=== PATIENT | female | born 1940 | race Two or more races ===

== ENCOUNTER → 2016-04-09 | Outpatient (CLI) | payer MEDICARE, OTHER ==
[~2016-04-09] MED LIST: AMIODARONE HCL200 MG ORAL; AMLODIPINE BESYL5 MG PO; ASPIR-LOW81 MG PO; BENADRYL25 M3 PO; CATAPRES0.1 MG ORAL; CLONIDINE HCL0.1 MG PO; CLONIDINE0.1 MG ORAL; COLACE100 MG ORAL; DIPHENHYDRAMINE25 M1 ORAL; FUROSEMIDE20 M1 ORAL; FUROSEMIDE40 MG ORAL; GABAPENTIN100 MG ORAL; HYDREA500 MG ORAL; HYDREA500 MG PO; HYDROCHLOROTHIA25 MG PO; K-DUR10 ME1; KEFLEX500 MG ORAL; KLOR-CON 1010 MEQ ORAL; LEVAQUIN250 M1 ORAL; LISINOPRIL-HCT1 EAC1 PO; LISINOPRIL20 MG ORAL; METOPROLOL TAR100 MG PO; METOPROLOL TART50 M1 ORAL; METOPROLOL TART50 MG ORAL; NEURONTIN300 MG ORAL; NORCO 5-325 TA1 EACH ORAL; OS-CAL1250 MG ORAL; POTASSIUM CHLO10 ME3 ORAL; POTASSIUM CHLO20 ME3 PO; PRADAXA150 MG PO; PREDNISONE20 MG ORAL; PROTONIX40 MG ORAL; THIAMINE HCL100 MG ORAL; TYLENOL EXTRA500 MG ORAL; VIT B PO; VITAMIN D400 INTLU PO; ZESTRIL20 MG ORAL; [UNRECOGNIZED DRUG - CODE] PO; [UNRECOGNIZED DRUG - OTHER] PO
[2016-04-09 11:19] LABS: MEAN CORPUSCULAR HEMOGLOBIN 25.6 PG (27.0-31.0); MEAN CORPUSCULAR HGB CONC 29.2 G/DL (32.0-36.0); MEAN CORPUSCULAR VOLUME 88 FL (80-99); PLATELET COUNT 389 K/UL (150-450); RED CELL DISTRIBUTION WIDTH 17.8 % (11.6-14.8); WHITE BLOOD COUNT 17.1 K/UL (4.8-10.8)
[2016-04-09 11:28] LABS: ALANINE AMINOTRANSFERASE 16 U/L (3-33); ANION GAP 14 (5-15); ASPARTATE AMINO TRANSFERASE 22 U/L (5-40); CARBON DIOXIDE 24 mEQ/L (20-30); CHLORIDE 100 mEQ/L (98-107); CREATININE 0.7 mg/dL (0.5-0.9); HEMOLYSIS 7; INR 1.4 (0.9-1.1); MAGNESIUM 1.8 mg/dL (1.7-2.5); PHOSPHORUS 2.7 mg/dL (2.5-4.8); POTASSIUM 4.3 mEQ/L (3.4-4.9); PROTHROMBIN TIME 14.6 SEC (9.30-11.50); SODIUM 138 mEQ/L (135-145); TOTAL PROTEIN 6.7 g/dL (6.6-8.7)
[2016-04-09 11:46] LABS: HEMOGLOBIN A1C 5.2 % (< 6.0)
[2016-04-09 11:49] LABS: BAND NEUTROPHILS % (MANUAL) 2 % (0-8); BASOPHILS % (MANUAL) 0 % (0-2); EOSINOPHILS % (MANUAL) 1 % (0-3); LYMPHOCYTES % (MANUAL) 6 % (20-45); NEUTROPHILS % (MANUAL) 89 % (45-75); PLATELET ESTIMATE ADEQUATE; PLATELET MORPHOLOGY NORMAL; TOTAL CELLS COUNTED 100
== END | disposition home or self-care (01) ==
LOC: LAB 10:21
DX: I10 Essential (primary) hypertension (principal); E11.9 Type 2 diabetes mellitus without complications; I48.91 Unspecified atrial fibrillation; Z95.0 Presence of cardiac pacemaker; E66.9 Obesity, unspecified; D75.1 Secondary polycythemia
CPT/HCPCS: 36415; 80053; 82607; 83036; 83735; 84100; 84443; 85007; 85025; 85610; 85730

== ENCOUNTER 2016-04-30 13:16 | Inpatient (IN) | payer MEDICARE, OTHER ==
[~2016-04-30] VITALS: Ht 152.4 cm; Wt 72.6 kg
[~2016-04-30 13:16] MED LIST changes: -CATAPRES0.1 MG ORAL; -METOPROLOL TART50 M1 ORAL; -NEURONTIN300 MG ORAL; -POTASSIUM CHLO10 ME3 ORAL; -ZESTRIL20 MG ORAL
--- NOTE | 2016-04-30 14:09 | Emergency Room Report ---
History of Present Illness General Chief Complaint: Generalized Weakness Source: Patient Present Illness HPI Patient is a 75-year-old female who presented after increased shortness of breath. Generalized weakness. Patient was noted to have recent increased falls. Patient had been taking medications for regular heartbeat. She states she's not been vomiting blood. Patient had gradual onset of symptoms she is followed by Dr. Hu patient had worsening shortness of breath with supine position.She reportedly was told that she had a blood infection. Allergies: Coded Allergies: No Known Allergies (Unverified , 04/30/16) Patient History Past Medical History: see triage record Last Menstrual Period: na Reviewed Nursing Documentation: PMH: Agreed, PSxH: Agreed Nursing Documentation-PMH Past Medical History: No History, Except For Hx Cardiac Problems: Yes Hx Hypertension: Yes Hx Pacemaker: Yes Hx Asthma: No Hx COPD: No Hx Diabetes: No Hx Cancer: No Hx Gastrointestinal Problems: Yes Hx Dialysis: No Hx Neurological Problems: No Hx Cerebrovascular Accident: No Hx Transient Ischemic Attacks: Yes Hx Seizures: No Review of Systems All Other Systems: negative except mentioned in HPI Physical Exam Vital Signs Date Time Temp Pulse Resp B/P Pulse Ox O2 Delivery O2 Flow Rate FiO2 04/30/16 13:21 98.4 60 16 86/62 95 Room Air General Appearance: alert, GCS 15, mild distress ENT: other - blood in oropharynx Neck: full range of motion, other - jvd Respiratory: chest non-tender, lungs clear, normal breath sounds Cardiovascular #1: normal peripheral pulses, regular rate, rhythm Gastrointestinal: normal inspection, normal bowel sounds, non tender, soft Genitourinary: normal inspection Neurologic: normal inspection, alert, oriented x3, responsive, 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 Differential diagnosis included was not limited to anemia, urinary tract infection, electrolyte abnormality, hypothyroidism, myocardial infarction, myasthenia gravis, dehydration, among others. Because of complexity of patient's case laboratory testing and imaging studies were ordered. Patient was given IV fluids. Laboratory testing was ordered. EKG interpreted by me showed atrial paced rhythm with a rate of 60 there were no acute ST or T wave changes.Rhythm strip showed paced rhythm with rate in the 60s without PVCs or ectopy.The patient had some improvement her blood pressure after IV fluid hydration. Patient was given IV antibiotics. Initial lactic acid level was noted to be normal The patient was discussed with Dr. Adrian for inpatient management Laboratory Tests Test 04/30/16 14:30 White Blood Count 16.9 K/UL (4.8-10.8) H Red Blood Count 5.81 M/UL (4.20-5.40) H Hemoglobin 14.6 G/DL (12.0-16.0) Hematocrit 49.9 % (37.0-47.0) H Mean Corpuscular Volume 86 FL (80-99) Mean Corpuscular Hemoglobin 25.1 PG (27.0-31.0) L Mean Corpuscular Hemoglobin Concent 29.3 G/DL (32.0-36.0) L Red Cell Distribution Width 18.5 % (11.6-14.8) H Platelet Count 447 K/UL (150-450) Mean Platelet Volume 13.9 FL (6.5-10.1) H Neutrophils (%) (Auto) % (45.0-75.0) Lymphocytes (%) (Auto) % (20.0-45.0) Monocytes (%) (Auto) % (1.0-10.0) Eosinophils (%) (Auto) % (0.0-3.0) Basophils (%) (Auto) % (0.0-2.0) Neutrophils % (Manual) Pending Lymphocytes % (Manual) Pending Platelet Estimate Pending Platelet Morphology Pending Prothrombin Time 19.8 SEC (9.30-11.50) H Prothrombin Time INR 1.9 (0.9-1.1) H PTT 62 SEC (23-33) H Sodium Level Pending Potassium Level Pending Chloride Level Pending Carbon Dioxide Level Pending Blood Urea Nitrogen Pending Creatinine Pending Estimate Glomerular Filtration Rate Pending Glucose Level Pending Lactic Acid Level Pending Calcium Level Pending Total Bilirubin Pending Aspartate Amino Transferase (AST) Pending Alanine Aminotransferase (ALT) Pending Alkaline Phosphatase Pending Total Creatine Kinase Pending Creatine Kinase MB Pending Troponin I Pending Total Protein Pending Albumin Pending Globulin Pending EKG Diagnostic Results ST Segments: no acute changes Chest X-Ray Diagnostic Results EP Interpretation: Yes Findings: no consolidation, no effusion, no pneumothorax, no acute cardiopulmonary disease Number of Views: 1 Last Vital Signs Date Time Temp Pulse Resp B/P Pulse Ox O2 Delivery O2 Flow Rate FiO2 04/30/16 13:21 98.4 60 16 86/62 95 Room Air Status: unchanged Disposition: ADMITTED INPATIENT Condition: Serious Petar Thompson Apr 30, 2016 14:09
[2016-04-30 14:54] LABS: MEAN CORPUSCULAR HEMOGLOBIN 25.1 PG (27.0-31.0); MEAN CORPUSCULAR HGB CONC 29.3 G/DL (32.0-36.0); MEAN CORPUSCULAR VOLUME 86 FL (80-99); MEAN PLATELET VOLUME 13.9 FL (6.5-10.1); PLATELET COUNT 447 K/UL (150-450); RED BLOOD COUNT 5.81 M/UL (4.20-5.40); RED CELL DISTRIBUTION WIDTH 18.5 % (11.6-14.8); WHITE BLOOD COUNT 16.9 K/UL (4.8-10.8)
--- NOTE | 2016-04-30 15:02 | Diagnostic Imaging Report ---
Indication: SOB Technique: One view of the chest Comparison: 04/18/2015 Findings: Degenerative changes of both shoulders are again noted. The heart is borderline enlarged. Aorta is tortuous and ectatic. Left chest pacemaker is again demonstrated. Impression: No acute process. Findings as noted
[2016-04-30 15:05] LABS: INR 1.9 (0.9-1.1); PROTHROMBIN TIME 19.8 SEC (9.30-11.50)
[2016-04-30 15:11] LABS: TROPONIN I < 0.30 ng/mL (<=0.30)
[2016-04-30 15:13] LABS: ALANINE AMINOTRANSFERASE 13 U/L (3-33); CALCIUM 8.8 mg/dL (8.6-10.2); CHLORIDE 96 mEQ/L (98-107); CREATININE 0.8 mg/dL (0.5-0.9); SODIUM 136 mEQ/L (135-145)
[2016-04-30 15:15] VITALS: BP 100/73
[2016-04-30] MEDS ORDERED: Ampicillin/Sulbactam Sod 3 GM in NS 110 ML IVPB ONE (15:15)
[2016-04-30 15:27] LABS: ASPARTATE AMINO TRANSFERASE 30 U/L (5-40)
[2016-04-30] MEDS ORDERED: CATAPRES0.1 MG ORAL (15:30)
[2016-04-30] MEDS ORDERED: METOPROLOL TART50 M1 ORAL (15:30)
[2016-04-30] MEDS ORDERED: GABAPENTIN100 MG ORAL (15:34)
[2016-04-30 15:40] LABS: APPEARANCE,URINE CLEAR; KETONES,URINE NEGATIVE (NEGATIVE); LEUKOCYTE ESTERASE ,URINE 2+ (NEGATIVE); NITRITE,URINE NEGATIVE (NEGATIVE); PH,URINE 6 (4.5-8.0); PROTEIN,URINE 2+ (NEGATIVE); UROBILINOGEN,URINE 4 MG/DL (0.0-1.0)
[2016-04-30 15:42] LABS: ANION GAP 17 (5-15); CARBON DIOXIDE 23 mEQ/L (20-30); HEMOLYSIS 247; TOTAL PROTEIN 6.7 g/dL (6.6-8.7)
[2016-04-30] MEDS ORDERED: Unasyn 3gm Inj ONE (15:43)
[2016-04-30] MEDS ORDERED: POTASSIUM CHLO10 ME3 ORAL (15:44)
[2016-04-30] MEDS ORDERED: ZESTRIL20 MG ORAL (15:44)
[2016-04-30 15:58] LABS: BACTERIA,URINE MODERATE /HPF; RBC,URINE 0-2 /HPF (0 - 2); SQUAMOUS EPITHELIAL CELL,UR FEW /LPF (NONE/OCC)
[2016-04-30] MEDS ORDERED: Miralax 17gm pkt ORAL PRN (16:00)
[2016-04-30] MEDS ORDERED: DuoNeb 0.5-3(2.5)mg/3ml neb HHN PRN (16:00)
[2016-04-30] MEDS ORDERED: Nitroglycerin Subl 0.4mg tab (Bottle Of 25) SL PRN (16:00)
[2016-04-30 16:01] LABS: AMORPHOUS SEDIMENT,UR FEW /LPF; ICTOTEST NEGATIVE
[2016-04-30 16:08] LABS: BAND NEUTROPHILS % (MANUAL) 3 % (0-8); LYMPHOCYTES % (MANUAL) 5 % (20-45); NEUTROPHILS % (MANUAL) 90 % (45-75); TOTAL CELLS COUNTED 100
[2016-04-30 16:09] LABS: ANISOCYTOSIS 1+
[2016-04-30 16:10] LABS: BASOPHILS % (MANUAL) 0 % (0-2); EOSINOPHILS % (MANUAL) 0 % (0-3); PLATELET ESTIMATE INCREASED; PLATELET MORPHOLOGY NORMAL
[2016-04-30 16:12] LABS: CKMB < 1.5 ng/mL (< 3.8)
[2016-04-30 17:45] VITALS: BP 109/56
[2016-04-30] MEDS ORDERED: Vancomycin 1.5gm/D5W 300ml 300 ML IVPB ONE (19:15)
[2016-04-30 19:30] VITALS: BP 128/64
[2016-04-30] MEDS ORDERED: Heparin 5000 units/ml inj SUBQ SCH (21:00)
[2016-04-30] MEDS ORDERED: Dabigatran 150mg cap ORAL SCH (21:00)
[2016-04-30] MEDS ORDERED: Cefepime HCl 2 GM in D5W 110 ML IV SCH (22:00)
[2016-04-30 22:16] VITALS: BP 137/65
[2016-04-30] MEDS: Morphine Sulfate 2mg/ml Inj IVP PRN (22:16)
--- NOTE | 2016-04-30 23:34 | Consultation ---
History of Present Illness General Date patient seen: Apr 30, 2016 Chief Complaint: Generalized Weakness Referring physician: Dr. Adrian Reason for Consultation: inpatient management Present Illness HPI 75-year-old female with PMH of pacemaker, CAD, presented to ER with CC of shortness of breath and generalized weakness. She was at her primary physician' s office, and was sent to ER for evaluation of her increased weakness and dyspnea. She was noticed to have sepsis and admitted to telemetry for further w /u. She is just c/o feeling bad and her legs bothers her as well, without having pain in legs. Allergies: Coded Allergies: No Known Allergies (Unverified , 04/30/16) Medication History Scheduled Amiodarone Hcl* (Cordarone*), 200 MG ORAL DAILY, (Reported) Calcium Carbonate ([id number]), 500 MG PO DAILY, (Reported) Dabigatran Etexilate Mesylate* (Pradaxa*), 150 MG PO Q12H, (Reported) Furosemide* (Lasix*), 40 MG ORAL DAILY, (Reported) Gabapentin* (Gabapentin*), 100 MG ORAL QAM AND 300MG PO QHS, (Reported) Hydroxyurea* (Hydrea*), 500 MG ORAL DAILY Lisinopril* (Zestril*), 20 MG ORAL BID, (Reported) Metoprolol Tartrate* (Metoprolol Tartrate*), 50 MG ORAL EVERY 12 HOURS, ( Reported) Potassium Chloride (Potassium Chloride), 20 MEQ ORAL DAILY, (Reported) Thiamine Hcl (Vitamin B1*), 100 MG ORAL DAILY, (Reported) Scheduled PRN Clonidine Hcl* (Catapres*), 0.1 MG ORAL EVERY 8 HOURS PRN for SBP >170, ( Reported) Discontinued Medications Acetaminophen* (Tylenol Extra Strength*), 500 MG ORAL Q6H PRN for Mild Pain/ Temp > 100.5 Discontinued Reason: Pt stopped taking med Gabapentin* (Gabapentin*), 100 MG ORAL THREE TIMES A DAY Discontinued Reason: Medication dose changed Levofloxacin* (Levaquin*), 250 MG ORAL DAILY Discontinued Reason: Therapy completed Patient History Healthcare decision maker Resuscitation status Advanced Directive on File Past Medical/Surgical History Past Medical/Surgical History: (1) Pacemaker (2) Heart failure Physical Exam General Appearance: WD/WN HEENT: normocephalic, atraumatic Neck: non-tender, normal alignment Respiratory/Chest: chest wall non-tender, lungs clear Cardiovascular/Chest: normal peripheral pulses, normal rate Abdomen: normal bowel sounds Genitourinary/Rectal: normal genital exam Skin Exam: normal pigmentation 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 Last 24 Hour Vital Signs Date Time Temp Pulse Resp B/P Pulse Ox O2 Delivery O2 Flow Rate FiO2 04/30/16 22:46 97.9 04/30/16 22:16 97.1 60 14 137/65 94 Room Air 04/30/16 19:30 60 18 128/64 95 Room Air 04/30/16 17:45 60 15 109/56 95 Room Air 04/30/16 15:15 97.9 60 15 100/73 95 Room Air 04/30/16 13:21 98.4 60 16 86/62 95 Room Air Laboratory Tests Test 04/30/16 14:30 04/30/16 15:23 White Blood Count 16.9 K/UL (4.8-10.8) H Red Blood Count 5.81 M/UL (4.20-5.40) H Hemoglobin 14.6 G/DL (12.0-16.0) Hematocrit 49.9 % (37.0-47.0) H Mean Corpuscular Volume 86 FL (80-99) Mean Corpuscular Hemoglobin 25.1 PG (27.0-31.0) L Mean Corpuscular Hemoglobin Concent 29.3 G/DL (32.0-36.0) L Red Cell Distribution Width 18.5 % (11.6-14.8) H Platelet Count 447 K/UL (150-450) Mean Platelet Volume 13.9 FL (6.5-10.1) H Neutrophils (%) (Auto) % (45.0-75.0) Lymphocytes (%) (Auto) % (20.0-45.0) Monocytes (%) (Auto) % (1.0-10.0) Eosinophils (%) (Auto) % (0.0-3.0) Basophils (%) (Auto) % (0.0-2.0) Differential Total Cells Counted 100 Neutrophils % (Manual) 90 % (45-75) H Lymphocytes % (Manual) 5 % (20-45) L Monocytes % (Manual) 2 % (1-10) Eosinophils % (Manual) 0 % (0-3) Basophils % (Manual) 0 % (0-2) Band Neutrophils 3 % (0-8) Platelet Estimate Increased H Platelet Morphology Normal Anisocytosis 1+ Prothrombin Time 19.8 SEC (9.30-11.50) H Prothromb Time International Ratio 1.9 (0.9-1.1) H Activated Partial Thromboplast Time 62 SEC (23-33) H Sodium Level 136 mEQ/L (135-145) Potassium Level 5.0 mEQ/L (3.4-4.9) H Chloride Level 96 mEQ/L (98-107) L Carbon Dioxide Level 23 mEQ/L (20-30) Anion Gap 17 (5-15) H Blood Urea Nitrogen 16 mg/dL (7-23) Creatinine 0.8 mg/dL (0.5-0.9) Estimat Glomerular Filtration Rate mL/min (>60) Glucose Level 125 mg/dL (74-106) H Lactic Acid Level 1.20 mmol/L (0.66-2.22) Calcium Level 8.8 mg/dL (8.6-10.2) Total Bilirubin 0.8 mg/dL (0.0-1.2) Aspartate Amino Transf (AST/SGOT) 30 U/L (5-40) Alanine Aminotransferase (ALT/SGPT) 13 U/L (3-33) Alkaline Phosphatase 87 U/L (35-104) Total Creatine Kinase 43 U/L (26-140) Creatine Kinase MB < 1.5 ng/mL (< 3.8) Creatine Kinase MB Relative Index Troponin I < 0.30 ng/mL (<=0.30) Total Protein 6.7 g/dL (6.6-8.7) Albumin 3.4 g/dL (3.5-5.2) L Globulin 3.3 g/dL Albumin/Globulin Ratio 1.0 (1.0-2.7) Urine Color Yellow Urine Appearance Clear Urine pH 6 (4.5-8.0) Urine Specific [place] 1.015 (1.005-1.035) Urine Protein 2+ (NEGATIVE) H Urine Glucose (UA) Negative (NEGATIVE) Urine Ketones Negative (NEGATIVE) Urine Occult Blood Negative (NEGATIVE) Urine Nitrite Negative (NEGATIVE) Urine Bilirubin 1+ (NEGATIVE) H Urine Ictotest Negative Urine Urobilinogen 4 MG/DL (0.0-1.0) H Urine Leukocyte Esterase 2+ (NEGATIVE) H Urine RBC 0-2 /HPF (0 - 2) Urine WBC 2-4 /HPF (0 - 2) Urine Squamous Epithelial Cells Few /LPF (NONE/OCC) Urine Amorphous Sediment Few /LPF (NONE) H Urine Bacteria Moderate /HPF (NONE) H Height (Feet): 5 Weight (Pounds): 160 Medications Current Medications Medications (Trade) Dose Ordered Sig/Escobar Route PRN Reason Start Time Stop Time Status Last Admin Dose Admin Acetaminophen (Tylenol) 650 mg Q4H PRN ORAL fever 04/30/16 16:00 05/30/16 15:59 Albuterol/ Ipratropium 3 ml 3 ml EVERY 4 HOURS PRN HHN Shortness of Breath 04/30/16 16:00 05/05/16 15:59 Amiodarone HCl (Cordarone) 200 mg DAILY ORAL 05/01/16 09:00 05/31/16 08:59 Cefepime HCl 2 gm/ Dextrose 110 ml @ 220 mls/hr Q24H IV 04/30/16 22:00 05/07/16 21:59 Dabigatran (Pradaxa) 150 mg Q12HR ORAL 04/30/16 21:00 05/30/16 20:59 Hydroxyurea (Hydrea) 500 mg DAILY ORAL 05/01/16 09:00 05/06/16 08:59 Morphine Sulfate (Morphine Sulfate) 2 mg EVERY 4 HOURS PRN IVP Moderate Pain (Pain Scale 4-6) 04/30/16 16:00 05/07/16 15:59 04/30/16 22:16 Nitroglycerin (Ntg) 0.4 mg Q5M PRN SL Prn Chest Pain 04/30/16 16:00 05/30/16 15:59 Ondansetron HCl (Zofran) 4 mg Q6H PRN IVP Nausea & Vomiting 04/30/16 16:00 05/30/16 15:59 Polyethylene Glycol (Miralax) 17 gm DAILYPRN PRN ORAL Constipation 04/30/16 16:00 05/30/16 15:59 Temazepam (Restoril) 15 mg HSPRN PRN ORAL Insomnia 04/30/16 16:00 05/07/16 15:59 Vancomycin HCl (Vanco rx to dose) 1 ea DAILY PRN MISC . 04/30/16 19:15 05/30/16 19:14 Vancomycin HCl/ Dextrose (Vancomycin/D5W) 275 ml @ 183.3 mls/ hr Q24H IVPB 05/01/16 19:00 05/06/16 18:59 Assessment/Plan Problem List: (1) Pyelonephritis ICD Codes: N12 - Tubulo-interstitial nephritis, not specified as acute or chronic SNOMED: 02155462 (2) Severe sepsis ICD Codes: A41.9 - Sepsis, unspecified organism; R65.20 - Severe sepsis without septic shock SNOMED: 00414494 (3) Dehydration ICD Codes: E86.0 - Dehydration SNOMED: 07744378, 216593558 (4) Pacemaker ICD Codes: Z95.0 - Presence of cardiac pacemaker SNOMED: 591439733, 658451674 Assessment/Plan IV antibiotics IV hydration cardiac work up check cultures adjust cardiac meds. SURAJ CHIU Apr 30, 2016 23:34
[2016-05-01 00:32] VITALS: BP 143/78
[2016-05-01] MEDS ORDERED: Cefepime 2gm ONE (00:52)
[2016-05-01] MEDS: Dabigatran 150mg cap ORAL SCH ×3 (01:01→20:58)
[2016-05-01] MEDS: Cefepime HCl 2 GM in D5W 110 ML IV SCH (01:01)
[2016-05-01 04:00] VITALS: BP 147/71
[2016-05-01 08:00] VITALS: BP 136/87
[2016-05-01 08:06] LABS: MEAN CORPUSCULAR HEMOGLOBIN 25.1 PG (27.0-31.0); MEAN CORPUSCULAR HGB CONC 29.3 G/DL (32.0-36.0); MEAN CORPUSCULAR VOLUME 86 FL (80-99); MEAN PLATELET VOLUME 10.2 FL (6.5-10.1); PLATELET COUNT 346 K/UL (150-450); RED BLOOD COUNT 5.66 M/UL (4.20-5.40); RED CELL DISTRIBUTION WIDTH 19.6 % (11.6-14.8); WHITE BLOOD COUNT 12.3 K/UL (4.8-10.8)
[2016-05-01 08:33] LABS: ALANINE AMINOTRANSFERASE 13 U/L (3-33); ALBUMIN/GLOBULIN RATIO 0.8 (1.0-2.7); ANION GAP 14 (5-15); ASPARTATE AMINO TRANSFERASE 21 U/L (5-40); CARBON DIOXIDE 24 mEQ/L (20-30); CHLORIDE 101 mEQ/L (98-107); CREATININE 0.7 mg/dL (0.5-0.9); HEMOLYSIS 14; SODIUM 139 mEQ/L (135-145); TOTAL PROTEIN 6.3 g/dL (6.6-8.7)
[2016-05-01] MEDS: Hydroxyurea 500mg cap ORAL SCH (08:53)
[2016-05-01] MEDS: Amiodarone 200mg tab ORAL SCH (08:53)
[2016-05-01 10:22] LABS: BAND NEUTROPHILS % (MANUAL) 3 % (0-8); BASOPHILS % (MANUAL) 0 % (0-2); EOSINOPHILS % (MANUAL) 0 % (0-3); LYMPHOCYTES % (MANUAL) 12 % (20-45); NEUTROPHILS % (MANUAL) 84 % (45-75); PLATELET ESTIMATE ADEQUATE; PLATELET MORPHOLOGY NORMAL; TOTAL CELLS COUNTED 100
[2016-05-01 10:23] LABS: ANISOCYTOSIS 2+
[2016-05-01 10:24] LABS: HYPOCHROMASIA 1+; OVALOCYTES 1+; POIKILOCYTOSIS 1+
--- NOTE | 2016-05-01 10:35 | Wound Care Consultation ---
Wound Assessment Wound Assessment #1: Wound Number: #1 Wound Present on Admission: Yes New Wound: No Status Change of Wound: No Wound Location Body Site Modif: left Wound Location Body Site: breast fold Wound Type: rash - intertrigo Nalini Test: Does not Nalini Percent of Wound [place]/Red: 100 Wound Drainage Description: Serosanguineous Wound Drainage Amount: Scant Wound Drainage Odor: None/Absent Tissue Surrounding Wound: Macerated - erythemic Wound General Appearance: Reddened, Open to air Wound Assessment #2: Wound Number: #2 Wound Present on Admission: Yes New Wound: No Status Change of Wound: No Wound Location Body Site Modif: right Wound Location Body Site: breast fold Wound Type: rash - intertrigo Nalini Test: Does not Nalini Percent of Wound [place]/Red: 100 Wound Drainage Description: Serosanguineous Wound Drainage Amount: Scant Wound Drainage Odor: None/Absent Tissue Surrounding Wound: Macerated - erythemic Wound General Appearance: Reddened, Open to air Wound Assessment #3: Wound Number: #3 Wound Present on Admission: Yes New Wound: No Status Change of Wound: No Wound Location Body Site Modif: mid Wound Location Body Site: sacral Wound Type: pressure ulcer Nalini Test: Does not Nalini Pressure Ulcer Stage: II - linear Wound Thickness: Partial Thickness Wound Length: 1.0 Wound Width: 0.3 Wound Depth: 0.1 Percent of Wound [place]/Red: 100 Wound Drainage Amount: Scant Wound Drainage Odor: None/Absent Tissue Surrounding Wound: Macerated - erythemic Wound General Appearance: Reddened Wound Comment #1 Left breast fold intertrigo rash. scattered redness #2 Right breast fold intertrigo rash. scattered redness #3 Mid sacral stage II pressure ulcer (linear). Recommendation. -Local wound care as ordered. -Apply low air loss overlay mattress. -Turn and reposition. -Keep clean and dry. -Optimize nutrition. -Heel protectors if needed. -Offload affected sacral site and heels/feet. -Assess and notify MD if any change of condition is noted. RORY SALGADO May 01, 2016 10:35
--- NOTE | 2016-05-01 11:21 | Cardiology Report ---
APPROVED REPORT EKG Measurement Heart [id number] [place] [id number] [id number] atrial paced ventricular sensed
[2016-05-01 12:04] VITALS: BP 147/73
[2016-05-01] MEDS: Nystatin Powder 100,000 units/gm 15gm TOPIC SCH ×2 (13:14→18:18)
--- NOTE | 2016-05-01 13:23 | Pulmonology Progress Note ---
Assessment/Plan Problems: (1) Pyelonephritis (2) Severe sepsis (3) Dehydration (4) Pacemaker Assessment/Plan wbc decreasing continue antibitoics check cultures cardio to follow med/surg if ok with cardio Subjective Interval Events: dyspnea improved, still feeling bad about legs Allergies: Coded Allergies: No Known Allergies (Unverified , 04/30/16) Objective Last 24 Hour Vital Signs Date Time Temp Pulse Resp B/P Pulse Ox O2 Delivery O2 Flow Rate FiO2 05/01/16 12:04 96.8 61 17 147/73 98 Room Air 05/01/16 11:41 60 05/01/16 08:32 60 18 Room Air 21 05/01/16 08:30 95 Room Air 21 05/01/16 08:00 97.2 60 18 136/87 97 Room Air 05/01/16 07:37 60 05/01/16 04:00 98.4 68 18 147/71 95 Room Air 05/01/16 04:00 60 05/01/16 00:32 97.9 61 19 143/78 95 Room Air 04/30/16 23:33 60 14 137/65 94 Room Air 04/30/16 22:46 97.9 04/30/16 22:16 97.1 60 14 137/65 94 Room Air 04/30/16 19:30 60 18 128/64 95 Room Air 04/30/16 17:45 60 15 109/56 95 Room Air 04/30/16 15:15 97.9 60 15 100/73 95 Room Air Intake and Output 04/30/16 05/01/16 19:00 07:00 Intake Total 610 ml 110 ml Balance 610 ml 110 ml Intake IV Total 610 ml 110 ml # Voids 2 3 General Appearance: WD/WN HEENT: normocephalic, atraumatic Respiratory/Chest: chest wall non-tender, lungs clear Breasts: no masses Cardiovascular: normal peripheral pulses, normal rate Abdomen: normal bowel sounds, soft, non tender Genitourinary: normal external genitalia Extremities: no clubbing 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 Microbiology Date/Time Source Procedure Growth Status 04/30/16 15:23 Urine,Clean Catch Urine Culture - Preliminary NO GROWTH Resulted Laboratory Tests 04/30/16 14:30: White Blood Count 16.9H, Red Blood Count 5.81H, Hemoglobin 14.6, Hematocrit 49.9H, Mean Corpuscular Volume 86, Mean Corpuscular Hemoglobin 25.1L, Mean Corpuscular Hemoglobin Concent 29.3L, Red Cell Distribution Width 18.5H, Platelet Count 447, Mean Platelet Volume 13.9H, Neutrophils (%) (Auto) , Lymphocytes (%) (Auto) , Monocytes (%) (Auto) , Eosinophils (%) (Auto) , Basophils (%) (Auto) , Differential Total Cells Counted 100, Neutrophils % ( Manual) 90H, Lymphocytes % (Manual) 5L, Monocytes % (Manual) 2, Eosinophils % ( Manual) 0, Basophils % (Manual) 0, Band Neutrophils 3, Platelet Estimate IncreasedH, Platelet Morphology Normal, Anisocytosis 1+, Prothrombin Time 19.8H , Prothromb Time International Ratio 1.9H, Activated Partial Thromboplast Time 62H, Sodium Level 136, Potassium Level 5.0H, Chloride Level 96L, Carbon Dioxide Level 23, Anion Gap 17H, Blood Urea Nitrogen 16, Creatinine 0.8, Estimat Glomerular Filtration Rate , Glucose Level 125H, Lactic Acid Level 1.20, Calcium Level 8.8, Total Bilirubin 0.8, Aspartate Amino Transf (AST/SGOT) 30, Alanine Aminotransferase (ALT/SGPT) 13, Alkaline Phosphatase 87, Total Creatine Kinase 43, Creatine Kinase MB < 1.5, Creatine Kinase MB Relative Index , Troponin I < 0.30, Total Protein 6.7, Albumin 3.4L, Globulin 3.3, Albumin/ Globulin Ratio 1.0 04/30/16 15:23: Urine Color Yellow, Urine Appearance Clear, Urine pH 6, Urine Specific [place] 1.015, Urine Protein 2+H, Urine Glucose (UA) Negative, Urine Ketones Negative, Urine Occult Blood Negative, Urine Nitrite Negative, Urine Bilirubin 1+H, Urine Ictotest Negative, Urine Urobilinogen 4H, Urine Leukocyte Esterase 2+H, Urine RBC 0-2, Urine WBC 2-4, Urine Squamous Epithelial Cells Few, Urine Amorphous Sediment FewH, Urine Bacteria ModerateH 05/01/16 07:22: White Blood Count 12.3H, Red Blood Count 5.66H, Hemoglobin 14.2, Hematocrit 48.5H, Mean Corpuscular Volume 86, Mean Corpuscular Hemoglobin 25.1L, Mean Corpuscular Hemoglobin Concent 29.3L, Red Cell Distribution Width 19.6H, Platelet Count 346, Mean Platelet Volume 10.2H, Neutrophils (%) (Auto) , Lymphocytes (%) (Auto) , Monocytes (%) (Auto) , Eosinophils (%) (Auto) , Basophils (%) (Auto) , Differential Total Cells Counted 100, Neutrophils % ( Manual) 84H, Lymphocytes % (Manual) 12L, Monocytes % (Manual) 1, Eosinophils % ( Manual) 0, Basophils % (Manual) 0, Band Neutrophils 3, Platelet Estimate Adequate, Platelet Morphology Normal, Anisocytosis 2+, Sodium Level 139, Potassium Level 4.0, Chloride Level 101, Carbon Dioxide Level 24, Anion Gap 14, Blood Urea Nitrogen 14, Creatinine 0.7, Estimat Glomerular Filtration Rate , Glucose Level 104, Calcium Level 9.0, Total Bilirubin 0.7, Aspartate Amino Transf (AST/SGOT) 21, Alanine Aminotransferase (ALT/SGPT) 13, Alkaline Phosphatase 82, Total Protein 6.3L, Albumin 2.9L, Globulin 3.4, Albumin/ Globulin Ratio 0.8L, Hypochromasia 1+, Poikilocytosis 1+, Ovalocytes 1+ Current Medications Medications (Trade) Dose Ordered Sig/Escobar Route PRN Reason Start Time Stop Time Status Last Admin Dose Admin Acetaminophen (Tylenol) 650 mg Q4H PRN ORAL fever 04/30/16 16:00 05/30/16 15:59 Albuterol/ Ipratropium 3 ml 3 ml EVERY 4 HOURS PRN HHN Shortness of Breath 04/30/16 16:00 05/05/16 15:59 Amiodarone HCl (Cordarone) 200 mg DAILY ORAL 05/01/16 09:00 05/31/16 08:59 05/01/16 08:53 Cefepime HCl/ Dextrose (Maxipime/D5W) 110 ml @ 220 mls/hr Q24H IV 05/01/16 01:00 05/08/16 00:59 05/01/16 01:01 Dabigatran 150 mg 150 mg Q12HR ORAL 05/01/16 01:00 05/31/16 00:59 05/01/16 08:53 Hydroxyurea (Hydrea) 500 mg DAILY ORAL 05/01/16 09:00 05/06/16 08:59 05/01/16 08:53 Morphine Sulfate (Morphine Sulfate) 2 mg EVERY 4 HOURS PRN IVP Moderate Pain (Pain Scale 4-6) 04/30/16 16:00 05/07/16 15:59 04/30/16 22:16 Nitroglycerin (Ntg) 0.4 mg Q5M PRN SL Prn Chest Pain 04/30/16 16:00 05/30/16 15:59 Nystatin (Nystop Powder) 1 applic THREE TIMES A DAY TOPIC 05/01/16 13:00 05/31/16 12:59 Ondansetron HCl (Zofran) 4 mg Q6H PRN IVP Nausea & Vomiting 04/30/16 16:00 05/30/16 15:59 Polyethylene Glycol (Miralax) 17 gm DAILYPRN PRN ORAL Constipation 04/30/16 16:00 05/30/16 15:59 Temazepam (Restoril) 15 mg HSPRN PRN ORAL Insomnia 04/30/16 16:00 05/07/16 15:59 Vancomycin HCl (Vanco rx to dose) 1 ea DAILY PRN MISC . 04/30/16 19:15 05/30/16 19:14 Vancomycin HCl/ Dextrose (Vancomycin/D5W) 275 ml @ 183.3 mls/ hr Q24H IVPB 05/01/16 19:00 05/06/16 18:59 SURAJ CHIU May 01, 2016 13:23
[2016-05-01] MEDS: Norco 5mg/325mg tab ORAL PRN (15:03)
--- NOTE | 2016-05-01 15:04 | Cardiac Electrophysiology PN ---
Subjective Subjective [id number] Objective Last 24 Hour Vital Signs Date Time Temp Pulse Resp B/P Pulse Ox O2 Delivery O2 Flow Rate FiO2 05/01/16 12:04 96.8 61 17 147/73 98 Room Air 05/01/16 11:41 60 05/01/16 08:32 60 18 Room Air 21 05/01/16 08:30 95 Room Air 21 05/01/16 08:00 97.2 60 18 136/87 97 Room Air 05/01/16 07:37 60 05/01/16 04:00 98.4 68 18 147/71 95 Room Air 05/01/16 04:00 60 05/01/16 00:32 97.9 61 19 143/78 95 Room Air 04/30/16 23:33 60 14 137/65 94 Room Air 04/30/16 22:46 97.9 04/30/16 22:16 97.1 60 14 137/65 94 Room Air 04/30/16 19:30 60 18 128/64 95 Room Air 04/30/16 17:45 60 15 109/56 95 Room Air 04/30/16 15:15 97.9 60 15 100/73 95 Room Air Intake and Output 04/30/16 05/01/16 19:00 07:00 Intake Total 610 ml 110 ml Balance 610 ml 110 ml IV Total 610 ml 110 ml # Voids 2 3 Laboratory Tests Test 04/30/16 15:23 05/01/16 07:22 Urine Color Yellow Urine Appearance Clear Urine pH 6 (4.5-8.0) Urine Specific [place] 1.015 (1.005-1.035) Urine Protein 2+ (NEGATIVE) H Urine Glucose (UA) Negative (NEGATIVE) Urine Ketones Negative (NEGATIVE) Urine Occult Blood Negative (NEGATIVE) Urine Nitrite Negative (NEGATIVE) Urine Bilirubin 1+ (NEGATIVE) H Urine Ictotest Negative Urine Urobilinogen 4 MG/DL (0.0-1.0) H Urine Leukocyte Esterase 2+ (NEGATIVE) H Urine RBC 0-2 /HPF (0 - 2) Urine WBC 2-4 /HPF (0 - 2) Urine Squamous Epithelial Cells Few /LPF (NONE/OCC) Urine Amorphous Sediment Few /LPF (NONE) H Urine Bacteria Moderate /HPF (NONE) H White Blood Count 12.3 K/UL (4.8-10.8) H Red Blood Count 5.66 M/UL (4.20-5.40) H Hemoglobin 14.2 G/DL (12.0-16.0) Hematocrit 48.5 % (37.0-47.0) H Mean Corpuscular Volume 86 FL (80-99) Mean Corpuscular Hemoglobin 25.1 PG (27.0-31.0) L Mean Corpuscular Hemoglobin Concent 29.3 G/DL (32.0-36.0) L Red Cell Distribution Width 19.6 % (11.6-14.8) H Platelet Count 346 K/UL (150-450) Mean Platelet Volume 10.2 FL (6.5-10.1) H Neutrophils (%) (Auto) % (45.0-75.0) Lymphocytes (%) (Auto) % (20.0-45.0) Monocytes (%) (Auto) % (1.0-10.0) Eosinophils (%) (Auto) % (0.0-3.0) Basophils (%) (Auto) % (0.0-2.0) Differential Total Cells Counted 100 Neutrophils % (Manual) 84 % (45-75) H Lymphocytes % (Manual) 12 % (20-45) L Monocytes % (Manual) 1 % (1-10) Eosinophils % (Manual) 0 % (0-3) Basophils % (Manual) 0 % (0-2) Band Neutrophils 3 % (0-8) Platelet Estimate Adequate Platelet Morphology Normal Hypochromasia 1+ Poikilocytosis 1+ Anisocytosis 2+ Ovalocytes 1+ Sodium Level 139 mEQ/L (135-145) Potassium Level 4.0 mEQ/L (3.4-4.9) Chloride Level 101 mEQ/L (98-107) Carbon Dioxide Level 24 mEQ/L (20-30) Anion Gap 14 (5-15) Blood Urea Nitrogen 14 mg/dL (7-23) Creatinine 0.7 mg/dL (0.5-0.9) Estimat Glomerular Filtration Rate mL/min (>60) Glucose Level 104 mg/dL (74-106) Calcium Level 9.0 mg/dL (8.6-10.2) Total Bilirubin 0.7 mg/dL (0.0-1.2) Aspartate Amino Transf (AST/SGOT) 21 U/L (5-40) Alanine Aminotransferase (ALT/SGPT) 13 U/L (3-33) Alkaline Phosphatase 82 U/L (35-104) Total Protein 6.3 g/dL (6.6-8.7) L Albumin 2.9 g/dL (3.5-5.2) L Globulin 3.4 g/dL Albumin/Globulin Ratio 0.8 (1.0-2.7) L Microbiology Date/Time Source Procedure Growth Status 04/30/16 15:23 Urine,Clean Catch Urine Culture - Preliminary NO GROWTH Resulted SHAUN NELSON May 01, 2016 15:04
[2016-05-01 16:00] VITALS: BP 152/86
--- NOTE | 2016-05-01 18:15 | History & Physical ---
History and Physical History & Physicial dictated for Int Med-Dr Adrian no. [id number]. RANDA MEYER May 01, 2016 18:15
[2016-05-01] MEDS: Lisinopril 20mg tab ORAL SCH (18:18)
[2016-05-01] MEDS: Morphine Sulfate 2mg/ml Inj IVP PRN (18:19)
[2016-05-01] MEDS ORDERED: Vancomycin 1 GM in D5W 275 ML IVPB SCH (19:00)
[2016-05-01 20:00] VITALS: BP 114/80
[2016-05-01] MEDS: Metoprolol 50mg tab ORAL SCH (20:57)
--- NOTE | 2016-05-01 21:59 | Consultation ---
DATE OF CONSULTATION: 05/01/2016 CARDIOLOGY CONSULTATION CONSULTING PHYSICIAN: Rievr Freitas M.D. REFERRING PHYSICIAN: Antonio Adrian M.D. REASON FOR CONSULTATION: Evaluation of the patient for hypertension and pacemaker. HISTORY OF PRESENT ILLNESS: The patient is a very pleasant 75-year-old lady under my Cardiology care with history of hypertension and history of permanent pacemaker placement by me, who was just seen in the office recently. The patient was seen at Dr. Adrian's office. She was complaining of generalized weakness and severe lower extremity pain and numbness. The patient was admitted to the hospital and Cardiology consultation was obtained for further evaluation and management. At the time of my evaluation, the patient had no chest pain or palpitation or shortness of breath. Primarily, her complaints are bilateral feet tingling and numbness. PAST MEDICAL HISTORY: 1. Hypertension. 2. Paroxysmal atrial fibrillation for which she is on amiodarone and Pradaxa. 3. Status post [employer] pacemaker implantation. 4. Chronic obstructive pulmonary disease. 5. Lupus. SOCIAL HISTORY: She lives at home. Does not smoke or drink alcohol. FAMILY HISTORY: Noncontributory. REVIEW OF SYSTEMS: Review of systems was thoroughly performed and was negative other than what was mentioned in the history of present illness. PHYSICAL EXAMINATION: VITAL SIGNS: Show blood pressure 147/73, pulse 61, respirations 17, and temperature 96.8 degrees. HEAD AND NECK: Showed no JVD. LUNGS: Coarse rhonchi. CARDIOVASCULAR: Shows regular S1 and S2 with no gallop or murmur. ABDOMEN: Soft and nontender. The pacemaker in the left subclavian is intact. EXTREMITIES: No pitting edema or clubbing. LABORATORY DATA: Her labs show white count 12.2, hemoglobin 14.4, hematocrit 48.5, and platelet count of 246,000. Sodium 139, potassium 4.0, BUN of 14, creatinine 0.7, and glucose of 104. INR is 1.9. ASSESSMENT AND PLAN: 1. Generalized weakness. Ordered 2D echocardiogram for further evaluation and completely rule out myocardial infarction protocol. 2. Severe bilateral lower extremity pain. We will get a stat lower extremity arterial and venous Doppler for further evaluation. 3. Paroxysmal atrial fibrillation. Resume the patient's amiodarone, Toprol, and Pradaxa. 4. Status post [employer] pacemaker implantation was interrogated in the office, which showed normal function. 5. Hypertension. Resume Toprol, lisinopril, and Lasix. 6. Chronic obstructive pulmonary disease. 7. Lupus. Thank you very much Dr. Adrian for allowing me to participate in the care of this patient. Please do not hesitate to contact me if you have any questions regarding my evaluation. River Freitas M.D. DR: MELLISA JOB#: [id number] CC:
--- NOTE | 2016-05-01 22:49 | History and Physical Report ---
DATE OF ADMISSION: 04/30/2016 CHIEF COMPLAINT: The patient is a 75-year-old female, presents with complaint of shortness of breath. HISTORY OF PRESENT ILLNESS: The patient has a history of congestive heart failure. The patient also has a history of polycythemia vera. Apparently, the patient was evaluated by Dr. Antonio Adrian. The patient was told she had elevated white count. The patient then began to experience shortness of breath. The patient presented to [place] emergency room. The patient was found to have white count of 16.9. The patient was also found to have decreased oxygen saturation. The patient is admitted for shortness of breath to rule out pneumonia. PAST MEDICAL HISTORY: Significant for, 1. Atrial fibrillation. 2. Polycythemia vera. 3. Hypertension. 4. Obstructive sleep apnea. 5. Coronary disease, status post myocardial infarction. 6. Hypercholesterolemia. 7. Congestive heart failure. PAST SURGICAL HISTORY: Significant for, 1. Pacemaker implantation. 2. Total abdominal hysterectomy. CURRENT MEDICATIONS: 1. Amiodarone 200 mg one tablet p.o. daily. 2. Calcium carbonate 500 mg one tablet p.o. daily. 3. Clonidine 0.1 mg p.o. one tablet p.o. q.8 hours p.r.n. hypertension. 4. Pradaxa 150 mg one tablet p.o. twice daily. 5. Furosemide 40 mg one tablet p.o. daily. 6. Gabapentin 100 mg one tablet p.o. every morning and 200 mg p.o. nightly. 7. Hydroxyurea 500 mg one tablet p.o. daily. 8. Lisinopril 20 mg one tablet p.o. twice daily. 9. Metoprolol 50 mg one tablet p.o. twice daily. 10. Potassium chloride 10 mEq two tablets p.o. daily. 11. Vitamin B 100 mg one tablet p.o. daily. ALLERGIES: No known drug allergies. SOCIAL HISTORY: The patient is single. The patient lives with her nephew. The patient denies tobacco use having quit 20 years previously. The patient denies alcohol use. The patient does have a grown son, who is present during the interview. REVIEW OF SYSTEMS: Constitutional: The patient denies weight loss or weight gain. The patient denies fevers or chills. HEENT: The patient denies ear or throat pain. Cardiovascular: The patient denies palpitations or chest pain. Chest: The patient complains of shortness of breath as above. The patient denies wheezes. Abdomen: The patient denies nausea, vomiting, diarrhea, or constipation. Genitourinary: The patient denies dysuria or increased frequency of urination. Neuromuscular: The patient complains of bilateral feet tingling. The patient denies seizures or generalized weakness. PHYSICAL EXAMINATION: VITAL SIGNS: Temperature 97.2 degrees, respirations 18, pulse 60, blood pressure 136/87, and pulse oximetry 95 to 98% on room air. GENERAL: The patient is a well-developed and well-nourished female, in no apparent distress. HEENT: Eyes, pupils are equal and responsive to light and accommodation. Extraocular movements are intact. NECK: Supple without lymphadenopathy. CHEST: Lungs are clear to auscultation bilaterally without wheezes or rales. CARDIOVASCULAR: Regular rhythm and rate. S1 and S2 normal without murmurs, rubs, or gallops. ABDOMEN: Soft, nontender, and nondistended. Positive bowel sounds. No evidence of hepatosplenomegaly. Currently, no rebound or guarding noted. EXTREMITIES: Negative for clubbing, cyanosis, or edema. RECTAL: Refused. GENITAL: Refused. NEUROLOGIC: Cranial nerves II through XII are grossly intact without focal deficits. Motor strength is 5/5 bilaterally. Deep tendon reflexes are 2+ plantar. LABORATORY STUDIES: WBC 16.9, hemoglobin 14.6, hematocrit 49.9, and platelets 447,000. Sodium 136, potassium elevated at 5.0, chloride 96, CO2 23, BUN 16, creatinine 0.8, and glucose 125. Urinalysis showed 2+ leukocyte esterase with 2 to 4 WBCs. Chest x-ray was reported as no acute disease. ASSESSMENT: This is a 75-year-old female, 1. Shortness of breath. 2. Leukocytosis. 3. Atrial fibrillation. 4. Polycythemia vera. 5. Hypertension. 6. Coronary artery disease. 7. Congestive heart failure. 8. Peripheral vascular disease. 9. Hypercholesterolemia. 10. Obstructive sleep apnea. TREATMENT: 1. Shortness of breath. A Pulmonary consultation has been obtained with Dr. Mejia. Shortness of breath may be secondary to cardiac etiology versus lung etiology. An echocardiogram is pending. The patient is currently on room air. 2. Leukocytosis. The patient has been started empirically on vancomycin and cefepime. Urine culture is pending. 3. Atrial fibrillation. A Cardiology consultation has been obtained with Dr. River Freitas. The patient will remain on Pradaxa as above. An echocardiogram is pending. 4. Polycythemia vera. 5. Hypertension. 6. Coronary artery disease as above. A Cardiology consultation has been obtained with Dr. River Freitas. 7. Congestive heart failure. An echocardiogram is pending. A Cardiology consultation has been obtained with Dr. River Freitas. 8. Peripheral vascular disease. Vascular studies of bilateral lower extremities are pending. The patient has been started empirically on gabapentin for diabetes. Arterial Dopplers of the bilateral lower extremities is pending. The patient has been started empirically on gabapentin for possible peripheral neuropathy. 9. Hypercholesterolemia. Continue Lipitor. Roshan Edwards M.D. DR: Ernesto JOB#: [id number] CC:
[2016-05-02] VITALS (7 sets, daily range): BP systolic 129–189; BP diastolic 65–96
[2016-05-02] MEDS: Cefepime HCl 2 GM in D5W 110 ML IV SCH (01:00)
[2016-05-02 07:06] LABS: MEAN CORPUSCULAR HEMOGLOBIN 25.7 PG (27.0-31.0); MEAN CORPUSCULAR HGB CONC 29.8 G/DL (32.0-36.0); MEAN CORPUSCULAR VOLUME 86 FL (80-99); MEAN PLATELET VOLUME 9.7 FL (6.5-10.1); PLATELET COUNT 347 K/UL (150-450); RED BLOOD COUNT 5.61 M/UL (4.20-5.40); RED CELL DISTRIBUTION WIDTH 19.7 % (11.6-14.8); WHITE BLOOD COUNT 11.6 K/UL (4.8-10.8)
[2016-05-02 07:53] LABS: ALANINE AMINOTRANSFERASE 16 U/L (3-33); ALBUMIN/GLOBULIN RATIO 0.9 (1.0-2.7); ANION GAP 14 (5-15); ASPARTATE AMINO TRANSFERASE 23 U/L (5-40); CARBON DIOXIDE 26 mEQ/L (20-30); CHLORIDE 101 mEQ/L (98-107); CREATININE 0.7 mg/dL (0.5-0.9); HEMOLYSIS 5; MAGNESIUM 2.1 mg/dL (1.7-2.5); PHOSPHORUS 3.6 mg/dL (2.5-4.8); SODIUM 141 mEQ/L (135-145); TOTAL PROTEIN 6.6 g/dL (6.6-8.7)
[2016-05-02 08:18] LABS: TROPONIN I < 0.30 ng/mL (<=0.30)
[2016-05-02] MEDS: Amiodarone 200mg tab ORAL SCH (08:59)
[2016-05-02] MEDS: Lisinopril 20mg tab ORAL SCH ×2 (09:00→17:45)
[2016-05-02] MEDS: Metoprolol 50mg tab ORAL SCH ×3 (09:00→20:42)
[2016-05-02] MEDS: Dabigatran 150mg cap ORAL SCH ×2 (09:00→20:37)
[2016-05-02] MEDS: Nystatin Powder 100,000 units/gm 15gm TOPIC SCH ×3 (09:01→17:46)
[2016-05-02] MEDS: Hydroxyurea 500mg cap ORAL SCH (09:01)
[2016-05-02] MEDS: Morphine Sulfate 2mg/ml Inj IVP PRN ×2 (10:12→20:39)
[2016-05-02 11:07] LABS: BAND NEUTROPHILS % (MANUAL) 4 % (0-8); BASOPHILS % (MANUAL) 0 % (0-2); EOSINOPHILS % (MANUAL) 0 % (0-3); LYMPHOCYTES % (MANUAL) 4 % (20-45); NEUTROPHILS % (MANUAL) 92 % (45-75); PLATELET ESTIMATE ADEQUATE; PLATELET MORPHOLOGY NORMAL; TOTAL CELLS COUNTED 100
[2016-05-02 11:08] LABS: ANISOCYTOSIS 2+
[2016-05-02 11:09] LABS: HYPOCHROMASIA 1+; POIKILOCYTOSIS 1+
[2016-05-02 11:10] LABS: OVALOCYTES 1+
--- NOTE | 2016-05-02 13:18 | Diagnostic Imaging Report ---
APPROVED REPORT CPT Code: 49522 Present Symptoms Lower Extremity Pain: Left BILATERAL: Imaging reveals a patent deep venous system bilaterally. There is no evidence of thrombus within the femoral, popliteal or tibial segments. The greater saphenous veins are also within normal limits. Doppler indicates normal spontaneous flow within these segments.
--- NOTE | 2016-05-02 13:19 | Diagnostic Imaging Report ---
APPROVED REPORT CPT Code: 02173 Symptoms Rest Pain : Bilaterally Risk Factors TIA/CVA History Cardiac Disease Diabetes RIGHT LEG: Common femoral artery waveform analysis is within normal limits at rest. Color duplex sonography reveals patency of the superficial femoral, popliteal and tibial arteries. There is no evidence of stenosis or occlusion within these segments. Doppler tibial artery waveform analysis is compatible with minimal to mild ischemia. LEFT LEG: Common femoral artery waveform analysis is abnormal, suggestive of iliac arterial occlusive disease. Color duplex sonography reveals patency of the superficial femoral, popliteal and tibial arteries. There is no evidence of stenosis or occlusion within these segments. Doppler tibial artery waveform analysis is compatible with minimal to mild ischemia.
--- NOTE | 2016-05-02 14:34 | Pulmonology Progress Note ---
Assessment/Plan Problems: (1) Pyelonephritis (2) Severe sepsis (3) Dehydration (4) Pacemaker Assessment/Plan Urin shows mixed bacteria on cefepime and vanco wbc decreasing sputum pending check cultures cardio to follow med/surg if ok with cardio Subjective Interval Events: no new complains, doing better Allergies: Coded Allergies: No Known Allergies (Unverified , 04/30/16) Objective Last 24 Hour Vital Signs Date Time Temp Pulse Resp B/P Pulse Ox O2 Delivery O2 Flow Rate FiO2 05/02/16 12:00 96.5 60 17 129/82 99 Room Air 63 05/02/16 09:00 154/65 05/02/16 09:00 68 154/65 05/02/16 08:00 60 16 Room Air 21 05/02/16 08:00 97.7 61 17 154/65 98 Room Air 61 05/02/16 05:28 60 05/02/16 04:01 98.3 66 18 159/96 96 Room Air 05/02/16 03:03 60 05/02/16 00:01 98.4 60 19 149/85 95 Room Air 05/01/16 20:57 60 152/95 05/01/16 20:00 61 05/01/16 20:00 97.0 113 20 114/80 97 Nasal Cannula 05/01/16 19:00 95 18 Room Air 21 05/01/16 18:18 152/86 05/01/16 16:00 70 05/01/16 16:00 97.7 66 18 152/86 96 Room Air Intake and Output 05/01/16 05/02/16 19:00 07:00 Intake Total 460 ml 385 ml Balance 460 ml 385 ml Intake Oral 460 ml IV Total 385 ml # Voids 1 2 General Appearance: WD/WN HEENT: normocephalic, atraumatic Respiratory/Chest: chest wall non-tender, lungs clear Breasts: no masses Cardiovascular: normal peripheral pulses Abdomen: normal bowel sounds, soft, non tender Genitourinary: normal external genitalia Extremities: no cyanosis Neurologic/Psychiatric: garage door hanger II-XII grossly normal, no motor/sensory deficits Lymphatic: no neck adenopathy Microbiology Date/Time Source Procedure Growth Status 04/30/16 14:37 Blood Blood Culture - Preliminary NO GROWTH AFTER 24 HOURS Resulted 04/30/16 14:30 Blood Blood Culture - Preliminary NO GROWTH AFTER 24 HOURS Resulted 05/01/16 08:15 Sputum Not Specified Gram Stain - Final Resulted 05/01/16 08:15 Sputum Not Specified Sputum Culture Pending Resulted 04/30/16 15:23 Urine,Clean Catch Urine Culture - Preliminary Mixed Gram Positive Organism Resulted Laboratory Tests 05/02/16 06:35: White Blood Count 11.6H, Red Blood Count 5.61H, Hemoglobin 14.4, Hematocrit 48.4H, Mean Corpuscular Volume 86, Mean Corpuscular Hemoglobin 25.7L, Mean Corpuscular Hemoglobin Concent 29.8L, Red Cell Distribution Width 19.7H, Platelet Count 347, Mean Platelet Volume 9.7, Neutrophils (%) (Auto) , Lymphocytes (%) (Auto) , Monocytes (%) (Auto) , Eosinophils (%) (Auto) , Basophils (%) (Auto) , Differential Total Cells Counted 100, Neutrophils % ( Manual) 92H, Lymphocytes % (Manual) 4L, Monocytes % (Manual) 0L, Eosinophils % ( Manual) 0, Basophils % (Manual) 0, Band Neutrophils 4, Platelet Estimate Adequate, Platelet Morphology Normal, Hypochromasia 1+, Poikilocytosis 1+, Anisocytosis 2+, Ovalocytes 1+, Sodium Level 141, Potassium Level 4.0, Chloride Level 101, Carbon Dioxide Level 26, Anion Gap 14, Blood Urea Nitrogen 11, Creatinine 0.7, Estimat Glomerular Filtration Rate , Glucose Level 108H, Calcium Level 9.0, Phosphorus Level 3.6, Magnesium Level 2.1, Total Bilirubin 0.7, Aspartate Amino Transf (AST/SGOT) 23, Alanine Aminotransferase (ALT/SGPT) 16, Alkaline Phosphatase 86, Troponin I < 0.30, Pro-B-Type Natriuretic Peptide 950H, Total Protein 6.6, Albumin 3.2L, Globulin 3.4, Albumin/Globulin Ratio 0.9L , Thyroid Stimulating Hormone (TSH) 4.870H, Free Thyroxine 1.75 Current Medications Medications (Trade) Dose Ordered Sig/Escobar Route PRN Reason Start Time Stop Time Status Last Admin Dose Admin Acetaminophen (Tylenol) 650 mg Q4H PRN ORAL fever 04/30/16 16:00 05/30/16 15:59 Acetaminophen/ Hydrocodone Bitart ([place] 5/325) 1 tab Q6H PRN ORAL Mild Pain (Pain Scale 1-3) 05/01/16 15:00 05/08/16 14:59 05/01/16 15:03 Albuterol/ Ipratropium 3 ml 3 ml EVERY 4 HOURS PRN HHN Shortness of Breath 04/30/16 16:00 05/05/16 15:59 Amiodarone HCl (Cordarone) 200 mg DAILY ORAL 05/01/16 09:00 05/31/16 08:59 05/02/16 08:59 Cefepime HCl/ Dextrose (Maxipime/D5W) 110 ml @ 220 mls/hr Q24H IV 05/01/16 01:00 05/08/16 00:59 05/02/16 01:00 Dabigatran 150 mg 150 mg Q12HR ORAL 05/01/16 01:00 05/31/16 00:59 05/02/16 09:00 Gabapentin (Neurontin) 300 mg THREE TIMES A DAY ORAL 05/01/16 21:00 05/31/16 20:59 05/02/16 13:19 Hydroxyurea (Hydrea) 500 mg DAILY ORAL 05/01/16 09:00 05/06/16 08:59 05/02/16 09:01 Lisinopril (Prinivil) 20 mg BID ORAL 05/01/16 18:00 05/31/16 17:59 05/02/16 09:00 Metoprolol Tartrate (Lopressor) 50 mg Q12HR ORAL 05/01/16 21:00 05/31/16 20:59 05/02/16 09:00 Morphine Sulfate (Morphine Sulfate) 2 mg EVERY 4 HOURS PRN IVP Moderate Pain (Pain Scale 4-6) 04/30/16 16:00 05/07/16 15:59 05/02/16 10:12 Nitroglycerin (Ntg) 0.4 mg Q5M PRN SL Prn Chest Pain 04/30/16 16:00 05/30/16 15:59 Nystatin (Nystop Powder) 1 applic THREE TIMES A DAY TOPIC 05/01/16 13:00 05/31/16 12:59 05/02/16 13:18 Ondansetron HCl (Zofran) 4 mg Q6H PRN IVP Nausea & Vomiting 04/30/16 16:00 05/30/16 15:59 05/01/16 23:12 Polyethylene Glycol (Miralax) 17 gm DAILYPRN PRN ORAL Constipation 04/30/16 16:00 05/30/16 15:59 Temazepam (Restoril) 15 mg HSPRN PRN ORAL Insomnia 04/30/16 16:00 05/07/16 15:59 Vancomycin HCl (Vanco rx to dose) 1 ea DAILY PRN MISC . 04/30/16 19:15 05/30/16 19:14 Vancomycin HCl/ Dextrose (Vancomycin/D5W) 275 ml @ 183.3 mls/ hr Q24H IVPB 05/01/16 19:00 05/06/16 18:59 05/01/16 20:57 SURAJ CHIU May 02, 2016 14:34
[2016-05-02] MEDS: Norco 5mg/325mg tab ORAL PRN (16:10)
--- NOTE | 2016-05-02 17:24 | Cardiac Electrophysiology PN ---
Assessment/Plan Assessment/Plan 1. Generalized weakness. 2D echocardiogram shows EF 65%. No NC. 2. Severe bilateral lower extremity pain. Arterial and venous Doppler showed no DVT and only minimal PVD 3. Paroxysmal atrial fibrillation.In SR/A paced on amiodarone, Toprol 50 bid, and Pradaxa. 4. Status post [employer] pacemaker implantation was interrogated in the office, which showed normal function. 5. Hypertension. On Toprol, lisinopril 20 bid 6. Chronic obstructive pulmonary disease. 7. Lupus. DW RN and family Subjective Subjective Feet pain is better. No chest pain or SOB. Family at bedside. Objective Last 24 Hour Vital Signs Date Time Temp Pulse Resp B/P Pulse Ox O2 Delivery O2 Flow Rate FiO2 05/02/16 16:00 96.8 61 18 141/79 97 Room Air 05/02/16 12:00 96.5 60 17 129/82 99 Room Air 63 05/02/16 11:26 60 05/02/16 09:00 154/65 05/02/16 09:00 68 154/65 05/02/16 08:00 60 16 Room Air 21 05/02/16 08:00 97.7 61 17 154/65 98 Room Air 61 05/02/16 07:54 60 05/02/16 05:28 60 05/02/16 04:01 98.3 66 18 159/96 96 Room Air 05/02/16 03:03 60 05/02/16 00:01 98.4 60 19 149/85 95 Room Air 05/01/16 20:57 60 152/95 05/01/16 20:00 61 05/01/16 20:00 97.0 113 20 114/80 97 Nasal Cannula 05/01/16 19:00 95 18 Room Air 21 05/01/16 18:18 152/86 Intake and Output 05/01/16 05/02/16 19:00 07:00 Intake Total 460 ml 385 ml Balance 460 ml 385 ml Intake Oral 460 ml IV Total 385 ml # Voids 1 2 Laboratory Tests Test 05/02/16 06:35 White Blood Count 11.6 K/UL (4.8-10.8) H Red Blood Count 5.61 M/UL (4.20-5.40) H Hemoglobin 14.4 G/DL (12.0-16.0) Hematocrit 48.4 % (37.0-47.0) H Mean Corpuscular Volume 86 FL (80-99) Mean Corpuscular Hemoglobin 25.7 PG (27.0-31.0) L Mean Corpuscular Hemoglobin Concent 29.8 G/DL (32.0-36.0) L Red Cell Distribution Width 19.7 % (11.6-14.8) H Platelet Count 347 K/UL (150-450) Mean Platelet Volume 9.7 FL (6.5-10.1) Neutrophils (%) (Auto) % (45.0-75.0) Lymphocytes (%) (Auto) % (20.0-45.0) Monocytes (%) (Auto) % (1.0-10.0) Eosinophils (%) (Auto) % (0.0-3.0) Basophils (%) (Auto) % (0.0-2.0) Differential Total Cells Counted 100 Neutrophils % (Manual) 92 % (45-75) H Lymphocytes % (Manual) 4 % (20-45) L Monocytes % (Manual) 0 % (1-10) L Eosinophils % (Manual) 0 % (0-3) Basophils % (Manual) 0 % (0-2) Band Neutrophils 4 % (0-8) Platelet Estimate Adequate Platelet Morphology Normal Hypochromasia 1+ Poikilocytosis 1+ Anisocytosis 2+ Ovalocytes 1+ Sodium Level 141 mEQ/L (135-145) Potassium Level 4.0 mEQ/L (3.4-4.9) Chloride Level 101 mEQ/L (98-107) Carbon Dioxide Level 26 mEQ/L (20-30) Anion Gap 14 (5-15) Blood Urea Nitrogen 11 mg/dL (7-23) Creatinine 0.7 mg/dL (0.5-0.9) Estimat Glomerular Filtration Rate mL/min (>60) Glucose Level 108 mg/dL (74-106) H Calcium Level 9.0 mg/dL (8.6-10.2) Phosphorus Level 3.6 mg/dL (2.5-4.8) Magnesium Level 2.1 mg/dL (1.7-2.5) Total Bilirubin 0.7 mg/dL (0.0-1.2) Aspartate Amino Transf (AST/SGOT) 23 U/L (5-40) Alanine Aminotransferase (ALT/SGPT) 16 U/L (3-33) Alkaline Phosphatase 86 U/L (35-104) Troponin I < 0.30 ng/mL (<=0.30) Pro-B-Type Natriuretic Peptide 950 pg/mL (0-450) H Total Protein 6.6 g/dL (6.6-8.7) Albumin 3.2 g/dL (3.5-5.2) L Globulin 3.4 g/dL Albumin/Globulin Ratio 0.9 (1.0-2.7) L Thyroid Stimulating Hormone (TSH) 4.870 uIU/mL (0.300-4.500) Free Thyroxine 1.75 ng/dL (0.86-1.85) Microbiology Date/Time Source Procedure Growth Status 04/30/16 14:37 Blood Blood Culture - Preliminary NO GROWTH AFTER 24 HOURS Resulted 04/30/16 14:30 Blood Blood Culture - Preliminary NO GROWTH AFTER 24 HOURS Resulted 05/01/16 08:15 Sputum Not Specified Gram Stain - Final Resulted 05/01/16 08:15 Sputum Not Specified Sputum Culture Pending Resulted 04/30/16 15:23 Urine,Clean Catch Urine Culture - Preliminary Mixed Gram Positive Organism Resulted Objective HEAD AND NECK: Showed no JVD. LUNGS: Coarse rhonchi. CARDIOVASCULAR: Shows regular S1 and S2 with no gallop or murmur. ABDOMEN: Soft and nontender. The pacemaker in the left subclavian is intact. EXTREMITIES: No pitting edema or clubbing. SHAUN NELSON May 02, 2016 17:24
--- NOTE | 2016-05-02 18:26 | Internal Med Progress Note ---
Subjective Date of Service: May 02, 2016 Physician Name GraceRanda Attending Physician Antonio Adrian MD Current Medications Medications (Trade) Dose Ordered Sig/Escobar Route PRN Reason Start Time Stop Time Status Last Admin Dose Admin Acetaminophen (Tylenol) 650 mg Q4H PRN ORAL fever 04/30/16 16:00 05/30/16 15:59 Acetaminophen/ Hydrocodone Bitart ([place] 5/325) 1 tab Q6H PRN ORAL Mild Pain (Pain Scale 1-3) 05/01/16 15:00 05/08/16 14:59 05/02/16 16:10 Albuterol/ Ipratropium (DuoNeb 0.5-3(2.5)mg/3ml) 3 ml EVERY 4 HOURS PRN HHN Shortness of Breath 04/30/16 16:00 05/05/16 15:59 Amiodarone HCl (Cordarone) 200 mg DAILY ORAL 05/01/16 09:00 05/31/16 08:59 05/02/16 08:59 Cefepime HCl/ Dextrose (Maxipime/D5W) 110 ml @ 220 mls/hr Q24H IV 05/01/16 01:00 05/08/16 00:59 05/02/16 01:00 Dabigatran 150 mg 150 mg Q12HR ORAL 05/01/16 01:00 05/31/16 00:59 05/02/16 09:00 Gabapentin (Neurontin) 300 mg THREE TIMES A DAY ORAL 05/01/16 21:00 05/31/16 20:59 05/02/16 17:46 Hydroxyurea (Hydrea) 500 mg DAILY ORAL 05/01/16 09:00 05/06/16 08:59 05/02/16 09:01 Lisinopril (Prinivil) 20 mg BID ORAL 05/01/16 18:00 05/31/16 17:59 05/02/16 17:45 Metoprolol Tartrate (Lopressor) 50 mg Q12HR ORAL 05/01/16 21:00 05/31/16 20:59 05/02/16 09:00 Morphine Sulfate (Morphine Sulfate) 2 mg EVERY 4 HOURS PRN IVP Moderate Pain (Pain Scale 4-6) 04/30/16 16:00 05/07/16 15:59 05/02/16 10:12 Nitroglycerin (Ntg) 0.4 mg Q5M PRN SL Prn Chest Pain 04/30/16 16:00 05/30/16 15:59 Nystatin (Nystop Powder) 1 applic THREE TIMES A DAY TOPIC 05/01/16 13:00 05/31/16 12:59 05/02/16 17:46 Ondansetron HCl (Zofran) 4 mg Q6H PRN IVP Nausea & Vomiting 04/30/16 16:00 05/30/16 15:59 05/01/16 23:12 Polyethylene Glycol (Miralax) 17 gm DAILYPRN PRN ORAL Constipation 04/30/16 16:00 05/30/16 15:59 Temazepam (Restoril) 15 mg HSPRN PRN ORAL Insomnia 04/30/16 16:00 05/07/16 15:59 Allergies: Coded Allergies: No Known Allergies (Unverified , 04/30/16) Constitutional: Reports: no symptoms HEENT: Reports: no symptoms Respiratory: Reports: shortness of breath Gastrointestinal/Abdominal: Reports: no symptoms Genitourinary: Reports: no symptoms Neurologic/Psychiatric: Reports: paresthesia, tingling Subjective 75 YO F admitted with shortness of breath and leukocytosis. Cover for Int Germán- Dr Adrian. Objective Last Vital Signs Date Time Temp Pulse Resp B/P Pulse Ox O2 Delivery O2 Flow Rate FiO2 05/02/16 17:45 141/79 05/02/16 16:00 96.8 61 18 97 Room Air 05/02/16 08:00 21 General Appearance: WD/WN, no apparent distress EENT: PERRL/EOMI, normal ENT inspection, TMs normal Neck: non-tender, normal alignment, supple Cardiovascular: normal peripheral pulses, normal rate, regular rhythm, no gallop/murmur Respiratory/Chest: chest wall non-tender, lungs clear, normal breath sounds, no respiratory distress, no accessory muscle use Abdomen: normal bowel sounds, non tender, soft, no organomegaly, no mass Skin: normal pigmentation, warm/dry Laboratory Tests Test 05/02/16 06:35 White Blood Count 11.6 K/UL (4.8-10.8) H Red Blood Count 5.61 M/UL (4.20-5.40) H Hemoglobin 14.4 G/DL (12.0-16.0) Hematocrit 48.4 % (37.0-47.0) H Mean Corpuscular Volume 86 FL (80-99) Mean Corpuscular Hemoglobin 25.7 PG (27.0-31.0) L Mean Corpuscular Hemoglobin Concent 29.8 G/DL (32.0-36.0) L Red Cell Distribution Width 19.7 % (11.6-14.8) H Platelet Count 347 K/UL (150-450) Mean Platelet Volume 9.7 FL (6.5-10.1) Neutrophils (%) (Auto) % (45.0-75.0) Lymphocytes (%) (Auto) % (20.0-45.0) Monocytes (%) (Auto) % (1.0-10.0) Eosinophils (%) (Auto) % (0.0-3.0) Basophils (%) (Auto) % (0.0-2.0) Differential Total Cells Counted 100 Neutrophils % (Manual) 92 % (45-75) H Lymphocytes % (Manual) 4 % (20-45) L Monocytes % (Manual) 0 % (1-10) L Eosinophils % (Manual) 0 % (0-3) Basophils % (Manual) 0 % (0-2) Band Neutrophils 4 % (0-8) Platelet Estimate Adequate Platelet Morphology Normal Hypochromasia 1+ Poikilocytosis 1+ Anisocytosis 2+ Ovalocytes 1+ Sodium Level 141 mEQ/L (135-145) Potassium Level 4.0 mEQ/L (3.4-4.9) Chloride Level 101 mEQ/L (98-107) Carbon Dioxide Level 26 mEQ/L (20-30) Anion Gap 14 (5-15) Blood Urea Nitrogen 11 mg/dL (7-23) Creatinine 0.7 mg/dL (0.5-0.9) Estimat Glomerular Filtration Rate mL/min (>60) Glucose Level 108 mg/dL (74-106) H Calcium Level 9.0 mg/dL (8.6-10.2) Phosphorus Level 3.6 mg/dL (2.5-4.8) Magnesium Level 2.1 mg/dL (1.7-2.5) Total Bilirubin 0.7 mg/dL (0.0-1.2) Aspartate Amino Transf (AST/SGOT) 23 U/L (5-40) Alanine Aminotransferase (ALT/SGPT) 16 U/L (3-33) Alkaline Phosphatase 86 U/L (35-104) Troponin I < 0.30 ng/mL (<=0.30) Pro-B-Type Natriuretic Peptide 950 pg/mL (0-450) H Total Protein 6.6 g/dL (6.6-8.7) Albumin 3.2 g/dL (3.5-5.2) L Globulin 3.4 g/dL Albumin/Globulin Ratio 0.9 (1.0-2.7) L Thyroid Stimulating Hormone (TSH) 4.870 uIU/mL (0.300-4.500) Free Thyroxine 1.75 ng/dL (0.86-1.85) Microbiology Date/Time Source Procedure Growth Status 04/30/16 14:37 Blood Blood Culture - Preliminary NO GROWTH AFTER 24 HOURS Resulted 04/30/16 14:30 Blood Blood Culture - Preliminary NO GROWTH AFTER 24 HOURS Resulted 05/01/16 08:15 Sputum Not Specified Gram Stain - Final Resulted 05/01/16 08:15 Sputum Not Specified Sputum Culture Pending Resulted 04/30/16 15:23 Urine,Clean Catch Urine Culture - Preliminary Mixed Gram Positive Organism Resulted Intake and Output 05/01/16 05/02/16 19:00 07:00 Intake Total 460 ml 385 ml Balance 460 ml 385 ml Intake Oral 460 ml IV Total 385 ml # Voids 1 2 Assessment/Plan Problem List: (1) Shortness of breath Assessment & Plan: See pulmonary note. (2) Atrial fibrillation Assessment & Plan: See cardiology note. Continue amiodarone, toprol and pradaxa. (3) Polycythemia vera (4) CAD (coronary artery disease) Assessment & Plan: See cardiology note. LVEF=60-65%; troponin neg (5) Hypercholesterolemia (6) Peripheral neuropathy Assessment & Plan: Venous doppler=neg DVT; Arterial doppler=min ischemia. Continue gabapentin (7) UTI (urinary tract infection) Assessment & Plan: Mixed culture with gram pos. Continue vanco and cefepime (8) Leukocytosis Assessment & Plan: Resolving on vanco and cefepime. (9) CHF (congestive heart failure) Assessment & Plan: see cardiology note. LVEF=60-65% Status: progressing RANDA MEYER May 02, 2016 18:26
[2016-05-03 00:38] VITALS: BP 173/80
[2016-05-03] MEDS: Cefepime HCl 2 GM in D5W 110 ML IV SCH (00:54)
[2016-05-03 04:08] VITALS: BP 137/83
[2016-05-03 06:12] LABS: MEAN CORPUSCULAR HEMOGLOBIN 25.1 PG (27.0-31.0); MEAN CORPUSCULAR VOLUME 87 FL (80-99); MEAN PLATELET VOLUME 9.8 FL (6.5-10.1); PLATELET COUNT 388 K/UL (150-450); RED BLOOD COUNT 6.11 M/UL (4.20-5.40); RED CELL DISTRIBUTION WIDTH 19.9 % (11.6-14.8); WHITE BLOOD COUNT 10.9 K/UL (4.8-10.8)
[2016-05-03 07:02] LABS: ALANINE AMINOTRANSFERASE 15 U/L (3-33); ALBUMIN/GLOBULIN RATIO 0.9 (1.0-2.7); ANION GAP 16 (5-15); ASPARTATE AMINO TRANSFERASE 21 U/L (5-40); CALCIUM 9.3 mg/dL (8.6-10.2); CARBON DIOXIDE 24 mEQ/L (20-30); CHLORIDE 100 mEQ/L (98-107); CREATININE 0.7 mg/dL (0.5-0.9); HEMOLYSIS 2; PHOSPHORUS 3.4 mg/dL (2.5-4.8); SODIUM 140 mEQ/L (135-145); TOTAL PROTEIN 6.6 g/dL (6.6-8.7)
[2016-05-03 07:51] VITALS: BP 129/88
--- NOTE | 2016-05-03 08:27 | Cardiology Report ---
APPROVED REPORT EXAM: Two-dimensional and M-mode echocardiogram with Doppler and color Doppler. INDICATION Congestive Heart Failure M-Mode DIMENSIONS IVSd0.9 (0.7-1.1cm)Left Atrium (MM)3.9 (1.6-4.0cm) LVDd4.4 (3.5-5.6cm)Aortic Root2.7 (2.0-3.7cm) PWd1.0 (0.7-1.1cm)Aortic Cusp Exc.1.7 (1.5-2.0cm) LVDs2.8 (2.5-4.0cm) PWs1.1 cm Normal left ventricular chamber size, systolic function and wall motion. Left ventricular ejection fraction estimated to be 60-65%. Mild left ventricular hypertrophy. No evidence of pericardial fat or effusion. Mild bi-atrial enlargement by 2D. Focal aortic valve sclerosis with adequate cusp excursion Thickened mitral valve leaflets with normal excursion. Mitral annulus and aortic root calcification. Pulmonic valve not well visualized. Normal tricuspid valve structure. IVC is normal in size with minimal physiologic collapse. RA pressure of 10mmHg. Probable pacemaker wire present in the right side chambers. A color flow and spectral Doppler study was performed and revealed: No aortic regurgitation. Mild mitral regurgitation. Left ventricular diastolic dysfunction grade 1. Mild tricuspid regurgitation. Tricuspid systolic velocities suggests peak right ventricular systolic pressure of 47 mmHg Consistent with moderate pulmonary hypertension.
[2016-05-03] MEDS: Hydroxyurea 500mg cap ORAL SCH (08:58)
[2016-05-03] MEDS: Metoprolol 50mg tab ORAL SCH ×2 (08:58→22:17)
[2016-05-03] MEDS: Dabigatran 150mg cap ORAL SCH ×2 (08:58→22:16)
[2016-05-03] MEDS: Amiodarone 200mg tab ORAL SCH (08:59)
[2016-05-03] MEDS: Lisinopril 20mg tab ORAL SCH ×2 (08:59→18:13)
[2016-05-03] MEDS: Nystatin Powder 100,000 units/gm 15gm TOPIC SCH ×3 (08:59→18:13)
[2016-05-03] MEDS: Morphine Sulfate 2mg/ml Inj IVP PRN (09:00)
[2016-05-03 11:14] VITALS: BP 148/87
--- NOTE | 2016-05-03 15:57 | Cardiac Electrophysiology PN ---
Assessment/Plan Assessment/Plan 1. Generalized weakness. 2D echocardiogram shows EF 65%. No PA. 2. Severe bilateral lower extremity pain. Arterial and venous Doppler showed no DVT and only minimal PVD 3. Paroxysmal atrial fibrillation.In and out of atrial fib. Now in SR/A paced on amiodarone, Toprol 50 bid, and Pradaxa. 4. Status post [employer] pacemaker implantation was interrogated in the office, which showed normal function. 5. Hypertension. On Toprol, lisinopril 20 bid 6. Chronic obstructive pulmonary disease. 7. Lupus. DW RN Subjective Subjective Feet pain is better. No chest pain or SOB. Had atrial fib with RVR that converted to SR spontaneously. Objective Last 24 Hour Vital Signs Date Time Temp Pulse Resp B/P Pulse Ox O2 Delivery O2 Flow Rate FiO2 05/03/16 11:54 114 05/03/16 11:14 97.6 96 18 148/87 96 Room Air 05/03/16 08:59 129/88 05/03/16 08:58 91 129/88 05/03/16 07:51 97.7 104 18 129/88 96 Room Air 05/03/16 07:44 102 05/03/16 04:08 98.4 84 18 137/83 95 Room Air 05/03/16 04:00 87 05/03/16 00:38 98.6 61 19 173/80 96 Room Air 05/03/16 00:00 60 05/02/16 22:50 173/85 05/02/16 20:42 68 182/90 05/02/16 20:00 63 05/02/16 20:00 96.4 60 18 189/90 98 Room Air 05/02/16 19:00 61 18 Room Air 21 05/02/16 17:45 141/79 05/02/16 16:00 60 05/02/16 16:00 96.8 61 18 141/79 97 Room Air Intake and Output 05/02/16 05/03/16 19:00 07:00 Intake Total 420 ml 510 ml Balance 420 ml 510 ml Intake Oral 420 ml 400 ml IV Total 110 ml # Voids 2 5 # Bowel Movements 1 Laboratory Tests Test 05/03/16 04:30 White Blood Count 10.9 K/UL (4.8-10.8) H Red Blood Count 6.11 M/UL (4.20-5.40) H Hemoglobin 15.4 G/DL (12.0-16.0) Hematocrit 52.9 % (37.0-47.0) H Mean Corpuscular Volume 87 FL (80-99) Mean Corpuscular Hemoglobin 25.1 PG (27.0-31.0) L Mean Corpuscular Hemoglobin Concent 29.0 G/DL (32.0-36.0) L Red Cell Distribution Width 19.9 % (11.6-14.8) H Platelet Count 388 K/UL (150-450) Mean Platelet Volume 9.8 FL (6.5-10.1) Neutrophils (%) (Auto) % (45.0-75.0) Lymphocytes (%) (Auto) % (20.0-45.0) Monocytes (%) (Auto) % (1.0-10.0) Eosinophils (%) (Auto) % (0.0-3.0) Basophils (%) (Auto) % (0.0-2.0) Sodium Level 140 mEQ/L (135-145) Potassium Level 4.0 mEQ/L (3.4-4.9) Chloride Level 100 mEQ/L (98-107) Carbon Dioxide Level 24 mEQ/L (20-30) Anion Gap 16 (5-15) H Blood Urea Nitrogen 10 mg/dL (7-23) Creatinine 0.7 mg/dL (0.5-0.9) Estimat Glomerular Filtration Rate mL/min (>60) Glucose Level 121 mg/dL (74-106) H Calcium Level 9.3 mg/dL (8.6-10.2) Phosphorus Level 3.4 mg/dL (2.5-4.8) Magnesium Level 2.0 mg/dL (1.7-2.5) Total Bilirubin 0.6 mg/dL (0.0-1.2) Aspartate Amino Transf (AST/SGOT) 21 U/L (5-40) Alanine Aminotransferase (ALT/SGPT) 15 U/L (3-33) Alkaline Phosphatase 92 U/L (35-104) Total Protein 6.6 g/dL (6.6-8.7) Albumin 3.2 g/dL (3.5-5.2) L Globulin 3.4 g/dL Albumin/Globulin Ratio 0.9 (1.0-2.7) L Microbiology Date/Time Source Procedure Growth Status 05/01/16 09:50 Blood Blood Culture - Preliminary NO GROWTH AFTER 24 HOURS Resulted 05/01/16 09:45 Blood Blood Culture - Preliminary NO GROWTH AFTER 24 HOURS Resulted 05/01/16 08:15 Sputum Not Specified Gram Stain - Final Complete 05/01/16 08:15 Sputum Not Specified Sputum Culture - Final NORMAL UPPER RESPIRATORY JEF PRESENT Complete Objective HEAD AND NECK: Showed no JVD. LUNGS: Coarse rhonchi. CARDIOVASCULAR: Regular S1 and S2 with no gallop or murmur. ABDOMEN: Soft and nontender. The pacemaker in the left subclavian is intact. EXTREMITIES: No pitting edema or clubbing. SHAUN NELSON May 03, 2016 15:57
[2016-05-03 16:00] VITALS: BP 126/68
--- NOTE | 2016-05-03 17:02 | Internal Med Progress Note ---
Subjective Date of Service: May 03, 2016 Physician Name GraceRanda Attending Physician Antonio Adrian MD Current Medications Medications (Trade) Dose Ordered Sig/Escobar Route PRN Reason Start Time Stop Time Status Last Admin Dose Admin Acetaminophen (Tylenol) 650 mg Q4H PRN ORAL fever 04/30/16 16:00 05/30/16 15:59 Acetaminophen/ Hydrocodone Bitart ([place] 5/325) 1 tab Q6H PRN ORAL Mild Pain (Pain Scale 1-3) 05/01/16 15:00 05/08/16 14:59 05/02/16 16:10 Albuterol/ Ipratropium (DuoNeb 0.5-3(2.5)mg/3ml) 3 ml EVERY 4 HOURS PRN HHN Shortness of Breath 04/30/16 16:00 05/05/16 15:59 Amiodarone HCl (Cordarone) 200 mg DAILY ORAL 05/01/16 09:00 05/31/16 08:59 05/03/16 08:59 Cefepime HCl/ Dextrose (Maxipime/D5W) 110 ml @ 220 mls/hr Q24H IV 05/01/16 01:00 05/08/16 00:59 05/03/16 00:54 Dabigatran 150 mg 150 mg Q12HR ORAL 05/01/16 01:00 05/31/16 00:59 05/03/16 08:58 Gabapentin (Neurontin) 300 mg THREE TIMES A DAY ORAL 05/01/16 21:00 05/31/16 20:59 05/03/16 13:01 Hydroxyurea (Hydrea) 500 mg DAILY ORAL 05/01/16 09:00 05/06/16 08:59 05/03/16 08:58 Lisinopril (Prinivil) 20 mg BID ORAL 05/01/16 18:00 05/31/16 17:59 05/03/16 08:59 Metoprolol Tartrate (Lopressor) 50 mg Q12HR ORAL 05/01/16 21:00 05/31/16 20:59 05/03/16 08:58 Morphine Sulfate (Morphine Sulfate) 2 mg EVERY 4 HOURS PRN IVP Moderate Pain (Pain Scale 4-6) 04/30/16 16:00 05/07/16 15:59 05/03/16 09:00 Nitroglycerin (Ntg) 0.4 mg Q5M PRN SL Prn Chest Pain 04/30/16 16:00 05/30/16 15:59 Nystatin (Nystop Powder) 1 applic THREE TIMES A DAY TOPIC 05/01/16 13:00 05/31/16 12:59 05/03/16 13:01 Ondansetron HCl (Zofran) 4 mg Q6H PRN IVP Nausea & Vomiting 04/30/16 16:00 05/30/16 15:59 05/01/16 23:12 Polyethylene Glycol (Miralax) 17 gm DAILYPRN PRN ORAL Constipation 04/30/16 16:00 05/30/16 15:59 Temazepam (Restoril) 15 mg HSPRN PRN ORAL Insomnia 04/30/16 16:00 05/07/16 15:59 Allergies: Coded Allergies: No Known Allergies (Unverified , 04/30/16) ROS Limited/Unobtainable: No Constitutional: Reports: no symptoms HEENT: Reports: no symptoms Cardiovascular: Reports: no symptoms Respiratory: Reports: shortness of breath Gastrointestinal/Abdominal: Reports: no symptoms Genitourinary: Reports: no symptoms Neurologic/Psychiatric: Reports: no symptoms Subjective 75 YO F admitted with shortness of breath and leukocytosis. Cover for Int Med- Dr Adrian. Objective Last Vital Signs Date Time Temp Pulse Resp B/P Pulse Ox O2 Delivery O2 Flow Rate FiO2 05/03/16 16:00 97.5 66 18 126/68 95 Room Air 05/02/16 19:00 21 Laboratory Tests Test 05/03/16 04:30 White Blood Count 10.9 K/UL (4.8-10.8) H Red Blood Count 6.11 M/UL (4.20-5.40) H Hemoglobin 15.4 G/DL (12.0-16.0) Hematocrit 52.9 % (37.0-47.0) H Mean Corpuscular Volume 87 FL (80-99) Mean Corpuscular Hemoglobin 25.1 PG (27.0-31.0) L Mean Corpuscular Hemoglobin Concent 29.0 G/DL (32.0-36.0) L Red Cell Distribution Width 19.9 % (11.6-14.8) H Platelet Count 388 K/UL (150-450) Mean Platelet Volume 9.8 FL (6.5-10.1) Neutrophils (%) (Auto) % (45.0-75.0) Lymphocytes (%) (Auto) % (20.0-45.0) Monocytes (%) (Auto) % (1.0-10.0) Eosinophils (%) (Auto) % (0.0-3.0) Basophils (%) (Auto) % (0.0-2.0) Sodium Level 140 mEQ/L (135-145) Potassium Level 4.0 mEQ/L (3.4-4.9) Chloride Level 100 mEQ/L (98-107) Carbon Dioxide Level 24 mEQ/L (20-30) Anion Gap 16 (5-15) H Blood Urea Nitrogen 10 mg/dL (7-23) Creatinine 0.7 mg/dL (0.5-0.9) Estimat Glomerular Filtration Rate mL/min (>60) Glucose Level 121 mg/dL (74-106) H Calcium Level 9.3 mg/dL (8.6-10.2) Phosphorus Level 3.4 mg/dL (2.5-4.8) Magnesium Level 2.0 mg/dL (1.7-2.5) Total Bilirubin 0.6 mg/dL (0.0-1.2) Aspartate Amino Transf (AST/SGOT) 21 U/L (5-40) Alanine Aminotransferase (ALT/SGPT) 15 U/L (3-33) Alkaline Phosphatase 92 U/L (35-104) Total Protein 6.6 g/dL (6.6-8.7) Albumin 3.2 g/dL (3.5-5.2) L Globulin 3.4 g/dL Albumin/Globulin Ratio 0.9 (1.0-2.7) L Microbiology Date/Time Source Procedure Growth Status 05/01/16 09:50 Blood Blood Culture - Preliminary NO GROWTH AFTER 24 HOURS Resulted 05/01/16 09:45 Blood Blood Culture - Preliminary NO GROWTH AFTER 24 HOURS Resulted 05/01/16 08:15 Sputum Not Specified Gram Stain - Final Complete 05/01/16 08:15 Sputum Not Specified Sputum Culture - Final NORMAL UPPER RESPIRATORY JEF PRESENT Complete Intake and Output 05/02/16 05/03/16 19:00 07:00 Intake Total 420 ml 510 ml Balance 420 ml 510 ml Intake Oral 420 ml 400 ml IV Total 110 ml # Voids 2 5 # Bowel Movements 1 Objective General Appearance: WD/WN, no apparent distress EENT: PERRL/EOMI, normal ENT inspection, TMs normal Neck: non-tender, normal alignment, supple Cardiovascular: normal peripheral pulses, normal rate, regular rhythm, no gallop/murmur Respiratory/Chest: chest wall non-tender, lungs clear, normal breath sounds, no respiratory distress, no accessory muscle use Abdomen: normal bowel sounds, non tender, soft, no organomegaly, no mass Skin: normal pigmentation, warm/dry Assessment/Plan Problem List: (1) Shortness of breath Assessment & Plan: See pulmonary note. (2) Atrial fibrillation Assessment & Plan: See cardiology note. Continue amiodarone, toprol and pradaxa. (3) Polycythemia vera (4) CAD (coronary artery disease) Assessment & Plan: See cardiology note. LVEF=60-65%; troponin neg (5) Hypercholesterolemia (6) Peripheral neuropathy Assessment & Plan: Venous doppler=neg DVT; Arterial doppler=min ischemia. Continue gabapentin (7) UTI (urinary tract infection) Assessment & Plan: Mixed culture with gram pos. Continue vanco and cefepime (8) Leukocytosis Assessment & Plan: Resolving on vanco and cefepime. (9) CHF (congestive heart failure) Assessment & Plan: see cardiology note. LVEF=60-65% Status: progressing RANDA MEYER May 03, 2016 17:02
--- NOTE | 2016-05-03 17:25 | Neurology Progress Note ---
Interim History Interim History ROS Limited/Unobtainable: No Objective Physical Exam Last Vital Signs Date Time Temp Pulse Resp B/P Pulse Ox O2 Delivery O2 Flow Rate FiO2 05/03/16 16:00 97.5 66 18 126/68 95 Room Air 05/02/16 19:00 21 Laboratory Tests Test 05/03/16 04:30 White Blood Count 10.9 K/UL (4.8-10.8) H Red Blood Count 6.11 M/UL (4.20-5.40) H Hemoglobin 15.4 G/DL (12.0-16.0) Hematocrit 52.9 % (37.0-47.0) H Mean Corpuscular Volume 87 FL (80-99) Mean Corpuscular Hemoglobin 25.1 PG (27.0-31.0) L Mean Corpuscular Hemoglobin Concent 29.0 G/DL (32.0-36.0) L Red Cell Distribution Width 19.9 % (11.6-14.8) H Platelet Count 388 K/UL (150-450) Mean Platelet Volume 9.8 FL (6.5-10.1) Neutrophils (%) (Auto) % (45.0-75.0) Lymphocytes (%) (Auto) % (20.0-45.0) Monocytes (%) (Auto) % (1.0-10.0) Eosinophils (%) (Auto) % (0.0-3.0) Basophils (%) (Auto) % (0.0-2.0) Sodium Level 140 mEQ/L (135-145) Potassium Level 4.0 mEQ/L (3.4-4.9) Chloride Level 100 mEQ/L (98-107) Carbon Dioxide Level 24 mEQ/L (20-30) Anion Gap 16 (5-15) H Blood Urea Nitrogen 10 mg/dL (7-23) Creatinine 0.7 mg/dL (0.5-0.9) Estimat Glomerular Filtration Rate mL/min (>60) Glucose Level 121 mg/dL (74-106) H Calcium Level 9.3 mg/dL (8.6-10.2) Phosphorus Level 3.4 mg/dL (2.5-4.8) Magnesium Level 2.0 mg/dL (1.7-2.5) Total Bilirubin 0.6 mg/dL (0.0-1.2) Aspartate Amino Transf (AST/SGOT) 21 U/L (5-40) Alanine Aminotransferase (ALT/SGPT) 15 U/L (3-33) Alkaline Phosphatase 92 U/L (35-104) Total Protein 6.6 g/dL (6.6-8.7) Albumin 3.2 g/dL (3.5-5.2) L Globulin 3.4 g/dL Albumin/Globulin Ratio 0.9 (1.0-2.7) L Impression/Recommendations Problems: (1) positional vertigo (2) UTI (urinary tract infection) (3) CAD (coronary artery disease) (4) Atrial fibrillation Status: progressing Recommendations #[id number] ELBERT FRYE May 03, 2016 17:25
[2016-05-03] MEDS: Meclizine 25mg tab ORAL SCH (18:12)
[2016-05-03 20:00] VITALS: BP 144/75
--- NOTE | 2016-05-03 21:58 | Pulmonology Progress Note ---
Assessment/Plan Problems: (1) Pyelonephritis (2) Severe sepsis (3) Dehydration (4) Pacemaker Assessment/Plan neuro consult for constant dizziness Urin shows mixed bacteria on cefepime and vanco, will dc vanco wbc decreasing sputum pending check cultures cardio to follow, sinus now med/surg if ok with cardio Subjective ROS Limited/Unobtainable: No Interval Events: c/o dizziness Allergies: Coded Allergies: No Known Allergies (Unverified , 04/30/16) Objective Last 24 Hour Vital Signs Date Time Temp Pulse Resp B/P Pulse Ox O2 Delivery O2 Flow Rate FiO2 05/03/16 20:00 98.2 60 18 144/75 95 Room Air 05/03/16 19:00 69 16 Room Air 21 05/03/16 18:13 126/68 05/03/16 16:00 97.5 66 18 126/68 95 Room Air 05/03/16 16:00 60 05/03/16 11:54 114 05/03/16 11:14 97.6 96 18 148/87 96 Room Air 05/03/16 08:59 129/88 05/03/16 08:58 91 129/88 05/03/16 07:51 97.7 104 18 129/88 96 Room Air 05/03/16 07:44 102 05/03/16 04:08 98.4 84 18 137/83 95 Room Air 05/03/16 04:00 87 05/03/16 00:38 98.6 61 19 173/80 96 Room Air 05/03/16 00:00 60 05/02/16 22:50 173/85 Intake and Output 05/02/16 05/03/16 19:00 07:00 Intake Total 420 ml 510 ml Balance 420 ml 510 ml Intake Oral 420 ml 400 ml IV Total 110 ml # Voids 2 5 # Bowel Movements 1 Objective General Appearance: WD/WN HEENT: normocephalic, atraumatic Respiratory/Chest: chest wall non-tender, lungs clear Breasts: no masses Cardiovascular: normal peripheral pulses Abdomen: normal bowel sounds, soft, non tender Genitourinary: normal external genitalia Extremities: no cyanosis Neurologic/Psychiatric: hair spinner II-XII grossly normal, no motor/sensory deficits Lymphatic: no neck adenopathy Microbiology Date/Time Source Procedure Growth Status 05/01/16 09:50 Blood Blood Culture - Preliminary NO GROWTH AFTER 24 HOURS Resulted 05/01/16 09:45 Blood Blood Culture - Preliminary NO GROWTH AFTER 24 HOURS Resulted 05/01/16 08:15 Sputum Not Specified Gram Stain - Final Complete 05/01/16 08:15 Sputum Not Specified Sputum Culture - Final NORMAL UPPER RESPIRATORY JEF PRESENT Complete Laboratory Tests 05/03/16 04:30: White Blood Count 10.9H, Red Blood Count 6.11H, Hemoglobin 15.4, Hematocrit 52.9H, Mean Corpuscular Volume 87, Mean Corpuscular Hemoglobin 25.1L, Mean Corpuscular Hemoglobin Concent 29.0L, Red Cell Distribution Width 19.9H, Platelet Count 388, Mean Platelet Volume 9.8, Neutrophils (%) (Auto) , Lymphocytes (%) (Auto) , Monocytes (%) (Auto) , Eosinophils (%) (Auto) , Basophils (%) (Auto) , Sodium Level 140, Potassium Level 4.0, Chloride Level 100 , Carbon Dioxide Level 24, Anion Gap 16H, Blood Urea Nitrogen 10, Creatinine 0.7 , Estimat Glomerular Filtration Rate , Glucose Level 121H, Calcium Level 9.3, Phosphorus Level 3.4, Magnesium Level 2.0, Total Bilirubin 0.6, Aspartate Amino Transf (AST/SGOT) 21, Alanine Aminotransferase (ALT/SGPT) 15, Alkaline Phosphatase 92, Total Protein 6.6, Albumin 3.2L, Globulin 3.4, Albumin/Globulin Ratio 0.9L Current Medications Medications (Trade) Dose Ordered Sig/Escobar Route PRN Reason Start Time Stop Time Status Last Admin Dose Admin Acetaminophen (Tylenol) 650 mg Q4H PRN ORAL fever 04/30/16 16:00 05/30/16 15:59 Acetaminophen/ Hydrocodone Bitart ([place] 5/325) 1 tab Q6H PRN ORAL Mild Pain (Pain Scale 1-3) 05/01/16 15:00 05/08/16 14:59 05/02/16 16:10 Albuterol/ Ipratropium (DuoNeb 0.5-3(2.5)mg/3ml) 3 ml EVERY 4 HOURS PRN HHN Shortness of Breath 04/30/16 16:00 05/05/16 15:59 Amiodarone HCl (Cordarone) 200 mg DAILY ORAL 05/01/16 09:00 05/31/16 08:59 05/03/16 08:59 Cefepime HCl/ Dextrose (Maxipime/D5W) 110 ml @ 220 mls/hr Q24H IV 05/01/16 01:00 05/08/16 00:59 05/03/16 00:54 Dabigatran 150 mg 150 mg Q12HR ORAL 05/01/16 01:00 05/31/16 00:59 05/03/16 08:58 Gabapentin (Neurontin) 300 mg THREE TIMES A DAY ORAL 05/01/16 21:00 05/31/16 20:59 05/03/16 18:12 Hydroxyurea (Hydrea) 500 mg DAILY ORAL 05/01/16 09:00 05/06/16 08:59 05/03/16 08:58 Lisinopril (Prinivil) 20 mg BID ORAL 05/01/16 18:00 05/31/16 17:59 05/03/16 18:13 Meclizine HCl (Antivert) 12.5 mg Q6HR ORAL 05/03/16 18:00 06/02/16 17:59 05/03/16 18:12 Metoprolol Tartrate (Lopressor) 50 mg Q12HR ORAL 05/01/16 21:00 05/31/16 20:59 05/03/16 08:58 Morphine Sulfate (Morphine Sulfate) 2 mg EVERY 4 HOURS PRN IVP Moderate Pain (Pain Scale 4-6) 04/30/16 16:00 05/07/16 15:59 05/03/16 09:00 Nitroglycerin (Ntg) 0.4 mg Q5M PRN SL Prn Chest Pain 04/30/16 16:00 05/30/16 15:59 Nystatin (Nystop Powder) 1 applic THREE TIMES A DAY TOPIC 05/01/16 13:00 05/31/16 12:59 05/03/16 18:13 Ondansetron HCl (Zofran) 4 mg Q6H PRN IVP Nausea & Vomiting 04/30/16 16:00 05/30/16 15:59 05/01/16 23:12 Polyethylene Glycol (Miralax) 17 gm DAILYPRN PRN ORAL Constipation 04/30/16 16:00 05/30/16 15:59 Temazepam (Restoril) 15 mg HSPRN PRN ORAL Insomnia 04/30/16 16:00 05/07/16 15:59 SURAJ CHIU May 03, 2016 21:58
--- NOTE | 2016-05-03 23:08 | Consultation ---
DATE OF CONSULTATION: 05/03/2016 NEUROLOGICAL CONSULTATION CONSULTING PHYSICIAN: Ravinder Jacobs M.D. REQUESTING PHYSICIAN: Antonio Adrian M.D. HISTORY OF PRESENT ILLNESS: The patient is a 75-year-old female, seen in neurological consultation to evaluate new onset of positional vertigo. According to the patient, starting yesterday she noticed that when she is getting up or moving around she feels very dizzy with the spinning sensation in her head, somewhat subsiding while she is in supine position and motionless, but worse happens when she is getting up and trying to walk, at this point she would become unstable. The patient indicated there was no other associated symptoms. There is no unilateral weakness, numbness, no vision or hearing abnormalities. The patient with multiple medical issues and was brought to this hospital complaining of shortness of breath, generalized weakness, dyspnea. The patient was diagnosed with sepsis, placed on telemetry. Her diagnostic studies included chest x-ray revealed no acute process, left chest pacemaker in place. Laboratory work included elevated WBC 16.9. Normal MCV and MCH. Coagulation panel mildly abnormal with INR 1.9. Chemistry panel with potassium 5.0, anion gap of 17, blood sugar 125. Elevated BNP 950 and TSH 4.870. Normal liver function. Urinalysis 2+ leukocyte esterase and 2+ protein. The patient has paroxysmal atrial fibrillation. She is on pacemaker. PAST MEDICAL HISTORY: The patient has a history of lupus, generalized aches and pains, COPD, hypertension, paroxysmal atrial fibrillation, obesity, sick sinus syndrome, urinary urgency, history of unstable gait and fall with head trauma in the past, right shoulder injuries. Coronary artery disease, polycythemia vera, hyperlipidemia, polyneuropathy. MEDICATIONS: Treatment prior to admission include amiodarone, Pradaxa, Neurontin, Hydrea, Prinivil, Lopressor, p.r.n. morphine, nitroglycerin, MiraLAX, Restoril, [place] as needed. FAMILY HISTORY: Noncontributory. SOCIAL HISTORY: Denies alcohol or drug abuse. REVIEW OF SYSTEMS: Fourteen point of review of symptoms was obtained this included positional vertigo, mild headache, generalized aches and pains, shortness of breath on exertion, frequent palpitations, abdominal discomfort, urine and bowel incontinence. PHYSICAL EXAMINATION: GENERAL: Well-developed, ill-appearing moderately obese female, lying comfortably in bed, being very upset with her dizziness. VITAL SIGNS: Included blood pressure 126/68, temperature 97.5. HEENT: Head, normocephalic. There is no evidence of trauma. Eyes, ears, and throat are clear. NECK: Supple. No meningeal signs. MUSCULOSKELETAL: Unremarkable except arthritic changes in knees and ankles. Peripheral pulses 1+ symmetric. MENTAL STATUS: Alert and oriented x3. Speech is fluent. Language intact. There is no aphasia. No apraxia. Cognitive function normal. CRANIAL NERVE II: Pupils both responding to light and accommodation. Extraocular movement, horizontal nystagmus on lateral gaze, unsustained. CRANIAL NERVE V: Normal corneal responses. CRANIAL NERVE VII: No gross facial asymmetry. CRANIAL NERVE VIII: Decreased hearing. With attempting to sit up felt severe vertigo. CRANIAL NERVE IX THROUGH XII: Within normal limits. MOTOR EXAMINATION: Normal muscle tone. Strength 5/5 in all extremities. No involuntary movement. Deep reflexes 1+ symmetric with downgoing toes on both sides. Sensory exam normal to pinprick and light touch. Gait very unstable, requires assistance. IMPRESSION: 1. Acute onset of positional vertigo with gait instability, this most likely represent benign positional vertigo, rule out stroke in the posterior circulation. 2. Atrial fibrillation. 3. Pacemaker in place. 4. Coronary artery disease. 5. 6. Hyperlipidemia. RECOMMENDATION: 1. Get CT of the brain without contrast. 2. Meclizine 12.5 mg t.i.d. 3. Fall precaution. 4. Continue with the current treatment. Thank you for allowing me to see this interesting patient in neurological consultation. Ravinder Jacobs M.D. DR: Matt JOB#: [id number] CC:
[2016-05-04] VITALS (8 sets, daily range): BP systolic 122–191; BP diastolic 67–94
[2016-05-04] MEDS: Meclizine 25mg tab ORAL SCH ×4 (01:18→17:26)
[2016-05-04] MEDS: Cefepime HCl 2 GM in D5W 110 ML IV SCH (01:28)
[2016-05-04 08:02] LABS: MEAN CORPUSCULAR HEMOGLOBIN 25.3 PG (27.0-31.0); MEAN CORPUSCULAR HGB CONC 29.4 G/DL (32.0-36.0); MEAN CORPUSCULAR VOLUME 86 FL (80-99); MEAN PLATELET VOLUME 11.7 FL (6.5-10.1); PLATELET COUNT 412 K/UL (150-450); RED BLOOD COUNT 6.09 M/UL (4.20-5.40); RED CELL DISTRIBUTION WIDTH 19.9 % (11.6-14.8); WHITE BLOOD COUNT 12.4 K/UL (4.8-10.8)
[2016-05-04 08:16] LABS: ANION GAP 10 (5-15); CALCIUM 9.2 mg/dL (8.6-10.2); CARBON DIOXIDE 29 mEQ/L (20-30); CHLORIDE 104 mEQ/L (98-107); CREATININE 0.8 mg/dL (0.5-0.9); HEMOLYSIS 3; POTASSIUM 4.4 mEQ/L (3.4-4.9); SODIUM 143 mEQ/L (135-145)
[2016-05-04] MEDS: Nystatin Powder 100,000 units/gm 15gm TOPIC SCH ×3 (08:18→17:28)
[2016-05-04] MEDS: Amiodarone 200mg tab ORAL SCH (08:19)
[2016-05-04] MEDS: Dabigatran 150mg cap ORAL SCH ×2 (08:19→20:00)
[2016-05-04] MEDS: Hydroxyurea 500mg cap ORAL SCH (08:19)
[2016-05-04] MEDS: Lisinopril 20mg tab ORAL SCH ×2 (08:20→17:26)
[2016-05-04] MEDS: Norco 5mg/325mg tab ORAL PRN (08:20)
[2016-05-04] MEDS: Metoprolol 50mg tab ORAL SCH ×2 (08:22→20:01)
[2016-05-04] MEDS ORDERED: Tubing IV Secondary IV ONE (10:20)
[2016-05-04] MEDS ORDERED: NS 275ml ONE (10:20)
--- NOTE | 2016-05-04 10:26 | Diagnostic Imaging Report ---
Indication: Altered mental status Technique: spiral acquisitions obtained through the brain. Angled axial and coronal 5 x 5 mm slices were reconstructed. No IV contrast utilized. Radiation dose was minimized using automated exposure control Total dose length product 1495 mGycm. CTDIvol(s) 70 mGy Comparison: none FINDINGS: No acute hemorrhage or edema. No mass effect or midline shift. There is age-related enlargement of the ventricles and extra axial CSF spaces. There is periventricular deep white matter ischemic change. 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 Normal aranda-white differentiation. Visualized orbits are unremarkable. Visualized sinuses are unremarkable. Intact calvarium. No significant interim change IMPRESSION: Chronic and age-related changes. 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 Naranjo The CT scanner at [facility] is accredited by the [employer] and the scans are performed using protocols designed to limit radiation exposure to as low as reasonably achievable to attain images of sufficient resolution adequate for diagnostic evaluation
[2016-05-04 10:36] LABS: BAND NEUTROPHILS % (MANUAL) 0 % (0-8); BASOPHILS % (MANUAL) 2 % (0-2); EOSINOPHILS % (MANUAL) 0 % (0-3); LYMPHOCYTES % (MANUAL) 6 % (20-45); NEUTROPHILS % (MANUAL) 91 % (45-75); PLATELET ESTIMATE ADEQUATE; TOTAL CELLS COUNTED 100
[2016-05-04 10:37] LABS: PLATELET MORPHOLOGY NORMAL
--- NOTE | 2016-05-04 15:43 | Cardiac Electrophysiology PN ---
Assessment/Plan Assessment/Plan 1. Generalized weakness. 2D echocardiogram shows EF 65%. No GA. 2. Severe bilateral lower extremity pain. Arterial and venous Doppler showed no DVT and only minimal PVD 3. Paroxysmal atrial fibrillation.In SR/A paced on amiodarone, Toprol 50 bid, and Pradaxa. 4. Status post [employer] pacemaker implantation was interrogated in the office, which showed normal function. 5. Hypertension. On Toprol 50 bid and lisinopril 20 bid 6. Chronic obstructive pulmonary disease. 7. Lupus. RILEY RN allyerick Adrian DC tele. Subjective Subjective No chest pain or SOB in SR. No further atrial fib. Objective Last 24 Hour Vital Signs Date Time Temp Pulse Resp B/P Pulse Ox O2 Delivery O2 Flow Rate FiO2 05/04/16 12:00 83 05/04/16 11:22 96.9 60 18 139/80 96 Room Air 05/04/16 08:27 60 139/75 05/04/16 08:22 60 139/75 05/04/16 08:20 139/75 05/04/16 08:00 60 05/04/16 07:59 96.6 120 18 191/94 95 Room Air 05/04/16 07:28 67 16 Room Air 21 05/04/16 04:03 98.3 63 18 143/75 99 Room Air 05/04/16 04:00 56 05/04/16 00:20 98.7 60 19 123/70 95 Room Air 05/04/16 00:00 60 05/03/16 22:17 60 144/75 05/03/16 20:00 60 05/03/16 20:00 98.2 60 18 144/75 95 Room Air 05/03/16 19:00 69 16 Room Air 21 05/03/16 18:13 126/68 05/03/16 16:00 97.5 66 18 126/68 95 Room Air 05/03/16 16:00 60 Intake and Output 05/03/16 05/04/16 19:00 07:00 Intake Total 480 ml 110 ml Output Total 700 ml Balance -220 ml 110 ml Intake Oral 480 ml IV Total 110 ml Output Urine Total 700 ml # Voids 2 Laboratory Tests Test 05/04/16 07:28 White Blood Count 12.4 K/UL (4.8-10.8) H Red Blood Count 6.09 M/UL (4.20-5.40) H Hemoglobin 15.4 G/DL (12.0-16.0) Hematocrit 52.4 % (37.0-47.0) H Mean Corpuscular Volume 86 FL (80-99) Mean Corpuscular Hemoglobin 25.3 PG (27.0-31.0) L Mean Corpuscular Hemoglobin Concent 29.4 G/DL (32.0-36.0) L Red Cell Distribution Width 19.9 % (11.6-14.8) H Platelet Count 412 K/UL (150-450) Mean Platelet Volume 11.7 FL (6.5-10.1) H Neutrophils (%) (Auto) % (45.0-75.0) Lymphocytes (%) (Auto) % (20.0-45.0) Monocytes (%) (Auto) % (1.0-10.0) Eosinophils (%) (Auto) % (0.0-3.0) Basophils (%) (Auto) % (0.0-2.0) Differential Total Cells Counted 100 Neutrophils % (Manual) 91 % (45-75) H Lymphocytes % (Manual) 6 % (20-45) L Monocytes % (Manual) 1 % (1-10) Eosinophils % (Manual) 0 % (0-3) Basophils % (Manual) 2 % (0-2) Band Neutrophils 0 % (0-8) Platelet Estimate Adequate Platelet Morphology Normal Red Blood Cell Morphology Normal Sodium Level 143 mEQ/L (135-145) Potassium Level 4.4 mEQ/L (3.4-4.9) Chloride Level 104 mEQ/L (98-107) Carbon Dioxide Level 29 mEQ/L (20-30) Anion Gap 10 (5-15) Blood Urea Nitrogen 12 mg/dL (7-23) Creatinine 0.8 mg/dL (0.5-0.9) Estimat Glomerular Filtration Rate mL/min (>60) Glucose Level 92 mg/dL (74-106) Calcium Level 9.2 mg/dL (8.6-10.2) Objective HEAD AND NECK: Showed no JVD. LUNGS: Coarse rhonchi. CARDIOVASCULAR: Regular S1 and S2 with no gallop or murmur.The pacemaker in the left subclavian is intact. ABDOMEN: Soft and nontender. EXTREMITIES: No pitting edema or clubbing. TOLUIE,SHAUN May 04, 2016 15:43
--- NOTE | 2016-05-04 16:59 | Internal Med Progress Note ---
Subjective Date of Service: May 04, 2016 Physician Name Randa Meyer Attending Physician Antonio Adrian MD Current Medications Medications (Trade) Dose Ordered Sig/Escobar Route PRN Reason Start Time Stop Time Status Last Admin Dose Admin Acetaminophen (Tylenol) 650 mg Q4H PRN ORAL fever 04/30/16 16:00 05/30/16 15:59 Acetaminophen/ Hydrocodone Bitart ([place] 5/325) 1 tab Q6H PRN ORAL Mild Pain (Pain Scale 1-3) 05/01/16 15:00 05/08/16 14:59 05/04/16 08:20 Albuterol/ Ipratropium (DuoNeb 0.5-3(2.5)mg/3ml) 3 ml EVERY 4 HOURS PRN HHN Shortness of Breath 04/30/16 16:00 05/05/16 15:59 Amiodarone HCl (Cordarone) 200 mg DAILY ORAL 05/01/16 09:00 05/31/16 08:59 05/04/16 08:19 Cefepime HCl/ Dextrose (Maxipime/D5W) 110 ml @ 220 mls/hr Q24H IV 05/01/16 01:00 05/08/16 00:59 05/04/16 01:28 Dabigatran 150 mg 150 mg Q12HR ORAL 05/01/16 01:00 05/31/16 00:59 05/04/16 08:19 Gabapentin (Neurontin) 300 mg THREE TIMES A DAY ORAL 05/01/16 21:00 05/31/16 20:59 05/04/16 13:26 Hydroxyurea (Hydrea) 500 mg DAILY ORAL 05/01/16 09:00 05/06/16 08:59 05/04/16 08:19 Lisinopril (Prinivil) 20 mg BID ORAL 05/01/16 18:00 05/31/16 17:59 05/04/16 08:20 Meclizine HCl (Antivert) 12.5 mg Q6HR ORAL 05/03/16 18:00 06/02/16 17:59 05/04/16 12:06 Metoprolol Tartrate (Lopressor) 50 mg Q12HR ORAL 05/01/16 21:00 05/31/16 20:59 05/03/16 22:17 Morphine Sulfate (Morphine Sulfate) 2 mg EVERY 4 HOURS PRN IVP Moderate Pain (Pain Scale 4-6) 04/30/16 16:00 05/07/16 15:59 05/03/16 09:00 Nitroglycerin (Ntg) 0.4 mg Q5M PRN SL Prn Chest Pain 04/30/16 16:00 05/30/16 15:59 Nystatin (Nystop Powder) 1 applic THREE TIMES A DAY TOPIC 05/01/16 13:00 05/31/16 12:59 05/04/16 13:27 Ondansetron HCl (Zofran) 4 mg Q6H PRN IVP Nausea & Vomiting 04/30/16 16:00 05/30/16 15:59 05/01/16 23:12 Polyethylene Glycol (Miralax) 17 gm DAILYPRN PRN ORAL Constipation 04/30/16 16:00 05/30/16 15:59 Temazepam (Restoril) 15 mg HSPRN PRN ORAL Insomnia 04/30/16 16:00 05/07/16 15:59 Allergies: Coded Allergies: No Known Allergies (Unverified , 04/30/16) ROS Limited/Unobtainable: No Constitutional: Reports: no symptoms HEENT: Reports: no symptoms Cardiovascular: Reports: no symptoms Respiratory: Reports: shortness of breath Gastrointestinal/Abdominal: Reports: no symptoms Genitourinary: Reports: no symptoms Neurologic/Psychiatric: Reports: no symptoms Subjective 75 YO F admitted with shortness of breath and leukocytosis. Cover for Int Germán- Dr Adrian. Objective Last Vital Signs Date Time Temp Pulse Resp B/P Pulse Ox O2 Delivery O2 Flow Rate FiO2 05/04/16 12:00 83 05/04/16 11:22 96.9 18 139/80 96 Room Air 05/04/16 07:28 21 Laboratory Tests Test 05/04/16 07:28 White Blood Count 12.4 K/UL (4.8-10.8) H Red Blood Count 6.09 M/UL (4.20-5.40) H Hemoglobin 15.4 G/DL (12.0-16.0) Hematocrit 52.4 % (37.0-47.0) H Mean Corpuscular Volume 86 FL (80-99) Mean Corpuscular Hemoglobin 25.3 PG (27.0-31.0) L Mean Corpuscular Hemoglobin Concent 29.4 G/DL (32.0-36.0) L Red Cell Distribution Width 19.9 % (11.6-14.8) H Platelet Count 412 K/UL (150-450) Mean Platelet Volume 11.7 FL (6.5-10.1) H Neutrophils (%) (Auto) % (45.0-75.0) Lymphocytes (%) (Auto) % (20.0-45.0) Monocytes (%) (Auto) % (1.0-10.0) Eosinophils (%) (Auto) % (0.0-3.0) Basophils (%) (Auto) % (0.0-2.0) Differential Total Cells Counted 100 Neutrophils % (Manual) 91 % (45-75) H Lymphocytes % (Manual) 6 % (20-45) L Monocytes % (Manual) 1 % (1-10) Eosinophils % (Manual) 0 % (0-3) Basophils % (Manual) 2 % (0-2) Band Neutrophils 0 % (0-8) Platelet Estimate Adequate Platelet Morphology Normal Red Blood Cell Morphology Normal Sodium Level 143 mEQ/L (135-145) Potassium Level 4.4 mEQ/L (3.4-4.9) Chloride Level 104 mEQ/L (98-107) Carbon Dioxide Level 29 mEQ/L (20-30) Anion Gap 10 (5-15) Blood Urea Nitrogen 12 mg/dL (7-23) Creatinine 0.8 mg/dL (0.5-0.9) Estimat Glomerular Filtration Rate mL/min (>60) Glucose Level 92 mg/dL (74-106) Calcium Level 9.2 mg/dL (8.6-10.2) Intake and Output 05/03/16 05/04/16 19:00 07:00 Intake Total 480 ml 110 ml Output Total 700 ml Balance -220 ml 110 ml Intake Oral 480 ml IV Total 110 ml Output Urine Total 700 ml # Voids 2 Objective General Appearance: WD/WN, no apparent distress EENT: PERRL/EOMI, normal ENT inspection, TMs normal Neck: non-tender, normal alignment, supple Cardiovascular: normal peripheral pulses, normal rate, regular rhythm, no gallop/murmur Respiratory/Chest: chest wall non-tender, lungs clear, normal breath sounds, no respiratory distress, no accessory muscle use Abdomen: normal bowel sounds, non tender, soft, no organomegaly, no mass Skin: normal pigmentation, warm/dry Assessment/Plan Problem List: (1) Shortness of breath Assessment & Plan: See pulmonary note. (2) Atrial fibrillation Assessment & Plan: See cardiology note. Continue amiodarone, toprol and pradaxa. (3) Polycythemia vera (4) CAD (coronary artery disease) Assessment & Plan: See cardiology note. LVEF=60-65%; troponin neg (5) Hypercholesterolemia (6) Peripheral neuropathy Assessment & Plan: Venous doppler=neg DVT; Arterial doppler=min ischemia. Continue gabapentin (7) UTI (urinary tract infection) Assessment & Plan: Mixed culture with gram pos. Continue vanco and cefepime (8) Leukocytosis Assessment & Plan: Resolving on vanco and cefepime. (9) CHF (congestive heart failure) Assessment & Plan: see cardiology note. LVEF=60-65% Status: progressing Assessment/Plan Discharge Planning possible in am: A&P home health [phone] RANDA MEYER May 04, 2016 16:59
[2016-05-04] MEDS ORDERED: Nitroglycerin Subl 0.4mg tab (Bottle Of 25) SL PRN (22:30)
--- NOTE | 2016-05-04 23:03 | Pulmonology Progress Note ---
Assessment/Plan Problems: (1) Pyelonephritis (2) Severe sepsis (3) Dehydration (4) Pacemaker Assessment/Plan neuro consult for constant dizziness Urin shows mixed bacteria on cefepime and vanco, will dc vanco wbc decreasing sputum pending check cultures cardio to follow, sinus now med/surg if ok with cardio Subjective Allergies: Coded Allergies: No Known Allergies (Unverified , 04/30/16) Objective Last 24 Hour Vital Signs Date Time Temp Pulse Resp B/P Pulse Ox O2 Delivery O2 Flow Rate FiO2 05/04/16 20:01 62 175/87 05/04/16 20:00 97.0 81 18 122/67 100 Room Air 05/04/16 19:38 69 16 Room Air 05/04/16 17:26 154/83 05/04/16 16:00 60 18 154/83 96 Room Air 05/04/16 12:00 83 05/04/16 11:22 96.9 60 18 139/80 96 Room Air 05/04/16 08:27 60 139/75 05/04/16 08:22 60 139/75 05/04/16 08:20 139/75 05/04/16 08:00 60 05/04/16 07:59 96.6 120 18 191/94 95 Room Air 05/04/16 07:28 67 16 Room Air 21 05/04/16 04:03 98.3 63 18 143/75 99 Room Air 05/04/16 04:00 56 05/04/16 00:20 98.7 60 19 123/70 95 Room Air 05/04/16 00:00 60 Intake and Output 05/03/16 05/04/16 19:00 07:00 Intake Total 480 ml 110 ml Output Total 700 ml Balance -220 ml 110 ml Intake Oral 480 ml IV Total 110 ml Output Urine Total 700 ml # Voids 2 Objective General Appearance: WD/WN HEENT: normocephalic, atraumatic Respiratory/Chest: chest wall non-tender, lungs clear Breasts: no masses Cardiovascular: normal peripheral pulses Abdomen: normal bowel sounds, soft, non tender Genitourinary: normal external genitalia Extremities: no cyanosis 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, no motor/sensory deficits Lymphatic: no neck adenopathy Laboratory Tests 05/04/16 07:28: White Blood Count 12.4H, Red Blood Count 6.09H, Hemoglobin 15.4, Hematocrit 52.4H, Mean Corpuscular Volume 86, Mean Corpuscular Hemoglobin 25.3L, Mean Corpuscular Hemoglobin Concent 29.4L, Red Cell Distribution Width 19.9H, Platelet Count 412, Mean Platelet Volume 11.7H, Neutrophils (%) (Auto) , Lymphocytes (%) (Auto) , Monocytes (%) (Auto) , Eosinophils (%) (Auto) , Basophils (%) (Auto) , Differential Total Cells Counted 100, Neutrophils % ( Manual) 91H, Lymphocytes % (Manual) 6L, Monocytes % (Manual) 1, Eosinophils % ( Manual) 0, Basophils % (Manual) 2, Band Neutrophils 0, Platelet Estimate Adequate, Platelet Morphology Normal, Red Blood Cell Morphology Normal, Sodium Level 143, Potassium Level 4.4, Chloride Level 104, Carbon Dioxide Level 29, Anion Gap 10, Blood Urea Nitrogen 12, Creatinine 0.8, Estimat Glomerular Filtration Rate , Glucose Level 92, Calcium Level 9.2 Current Medications Medications (Trade) Dose Ordered Sig/Escobar Route PRN Reason Start Time Stop Time Status Last Admin Dose Admin Acetaminophen (Tylenol) 650 mg Q4H PRN ORAL fever 05/05/16 00:00 06/04/16 00:00 UNV Acetaminophen/ Hydrocodone Bitart ([place] 5/325) 1 tab Q6H PRN ORAL Mild Pain (Pain Scale 1-3) 05/05/16 03:00 05/12/16 02:59 UNV Albuterol/ Ipratropium (DuoNeb 0.5-3(2.5)mg/3ml) 3 ml EVERY 4 HOURS PRN HHN Shortness of Breath 05/05/16 01:00 05/10/16 00:59 UNV Amiodarone HCl (Cordarone) 200 mg DAILY ORAL 05/05/16 09:00 06/04/16 08:59 UNV Cefepime HCl/ Dextrose (Maxipime/D5W) 110 ml @ 220 mls/hr Q24H IV 05/05/16 01:00 05/12/16 00:59 UNV Dabigatran (Pradaxa) 150 mg Q12HR ORAL 05/05/16 09:00 06/04/16 08:59 UNV Gabapentin (Neurontin) 300 mg THREE TIMES A DAY ORAL 05/05/16 09:00 06/04/16 08:59 UNV Hydroxyurea (Hydrea) 500 mg DAILY ORAL 05/05/16 09:00 05/10/16 08:59 UNV Lisinopril (Prinivil) 20 mg BID ORAL 05/05/16 09:00 06/04/16 08:59 UNV Meclizine HCl (Antivert) 12.5 mg Q6HR ORAL 05/05/16 00:00 06/04/16 00:00 UNV Metoprolol Tartrate (Lopressor) 50 mg Q12HR ORAL 05/05/16 09:00 06/04/16 08:59 UNV Morphine Sulfate (Morphine Sulfate) 2 mg EVERY 4 HOURS PRN IVP Moderate Pain (Pain Scale 4-6) 05/05/16 01:00 05/12/16 00:59 UNV Nitroglycerin (Ntg) 0.4 mg Q5M PRN SL Prn Chest Pain 05/04/16 22:30 06/03/16 22:29 UNV Nystatin (Nystop Powder) 1 applic THREE TIMES A DAY TOPIC 05/05/16 09:00 06/04/16 08:59 UNV Ondansetron HCl (Zofran) 4 mg Q6H PRN IVP Nausea & Vomiting 05/05/16 04:00 06/04/16 03:59 UNV Polyethylene Glycol (Miralax) 17 gm DAILYPRN PRN ORAL Constipation 05/05/16 16:00 06/04/16 15:59 UNV Temazepam (Restoril) 15 mg HSPRN PRN ORAL Insomnia 05/05/16 16:00 05/12/16 15:59 UNV SURAJ CHIU May 04, 2016 23:03
[2016-05-04] MEDS ORDERED: Norco 5mg/325mg tab ORAL PRN (23:19)
[2016-05-04] MEDS ORDERED: DuoNeb 0.5-3(2.5)mg/3ml neb HHN PRN (23:20)
[2016-05-04] MEDS ORDERED: Morphine Sulfate 2mg/ml Inj IVP PRN (23:21)
[2016-05-04] MEDS ORDERED: Miralax 17gm pkt ORAL PRN (23:23)
[2016-05-05] VITALS: BP 147/73
[2016-05-05] MEDS: Meclizine 25mg tab ORAL SCH ×4 (01:05→17:47)
[2016-05-05] MEDS ORDERED: Cefepime 2gm ONE (01:16)
[2016-05-05] MEDS: Cefepime HCl 2 GM in D5W 110 ML IV SCH (01:20)
[2016-05-05 04:00] VITALS: BP 121/74
[2016-05-05 07:52] LABS: MEAN CORPUSCULAR HEMOGLOBIN 25.1 PG (27.0-31.0); MEAN CORPUSCULAR HGB CONC 29.1 G/DL (32.0-36.0); MEAN CORPUSCULAR VOLUME 86 FL (80-99); MEAN PLATELET VOLUME 10.4 FL (6.5-10.1); PLATELET COUNT 396 K/UL (150-450); RED BLOOD COUNT 6.16 M/UL (4.20-5.40); RED CELL DISTRIBUTION WIDTH 19.7 % (11.6-14.8); WHITE BLOOD COUNT 16.2 K/UL (4.8-10.8)
[2016-05-05 08:23] LABS: ANION GAP 13 (5-15); CARBON DIOXIDE 27 mEQ/L (20-30); CHLORIDE 101 mEQ/L (98-107); CREATININE 0.7 mg/dL (0.5-0.9); HEMOLYSIS 2; POTASSIUM 4.2 mEQ/L (3.4-4.9); SODIUM 141 mEQ/L (135-145)
[2016-05-05 08:25] VITALS: BP 121/75
[2016-05-05] MEDS: Metoprolol 50mg tab ORAL SCH ×2 (09:00→20:41)
[2016-05-05 09:38] LABS: ANISOCYTOSIS 1+; BAND NEUTROPHILS % (MANUAL) 9 % (0-8); BASOPHILS % (MANUAL) 0 % (0-2); EOSINOPHILS % (MANUAL) 0 % (0-3); LYMPHOCYTES % (MANUAL) 4 % (20-45); NEUTROPHILS % (MANUAL) 80 % (45-75); PLATELET ESTIMATE ADEQUATE; PLATELET MORPHOLOGY NORMAL; TOTAL CELLS COUNTED 100
[2016-05-05 09:39] LABS: HYPOCHROMASIA 1+
[2016-05-05] MEDS: Amiodarone 200mg tab ORAL SCH (11:10)
[2016-05-05] MEDS: Hydroxyurea 500mg cap ORAL SCH (11:11)
[2016-05-05] MEDS: Dabigatran 150mg cap ORAL SCH ×2 (11:12→20:40)
[2016-05-05] MEDS: Lisinopril 20mg tab ORAL SCH ×2 (11:13→20:41)
[2016-05-05] MEDS: Nystatin Powder 100,000 units/gm 15gm TOPIC SCH ×3 (11:13→17:46)
[2016-05-05 12:47] VITALS: BP 114/80
--- NOTE | 2016-05-05 15:54 | Internal Med Progress Note ---
Subjective Date of Service: May 05, 2016 Physician Name GraceRanda Attending Physician Antonio Adrian MD Current Medications Medications (Trade) Dose Ordered Sig/Escobar Route PRN Reason Start Time Stop Time Status Last Admin Dose Admin Acetaminophen (Tylenol) 650 mg Q4H PRN ORAL fever 05/04/16 23:17 06/03/16 23:16 Acetaminophen/ Hydrocodone Bitart ([place] 5/325) 1 tab Q6H PRN ORAL Mild Pain (Pain Scale 1-3) 05/04/16 23:19 05/11/16 23:18 Albuterol/ Ipratropium (DuoNeb 0.5-3(2.5)mg/3ml) 3 ml Q4H PRN HHN Shortness of Breath 05/04/16 23:20 05/09/16 23:19 Amiodarone HCl (Cordarone) 200 mg DAILY ORAL 05/05/16 09:00 06/04/16 08:59 05/05/16 11:10 Cefepime HCl/ Dextrose (Maxipime/D5W) 110 ml @ 220 mls/hr Q24H IV 05/05/16 01:00 05/12/16 00:59 05/05/16 01:20 Dabigatran (Pradaxa) 150 mg Q12HR ORAL 05/05/16 09:00 06/04/16 08:59 05/05/16 11:12 Gabapentin (Neurontin) 300 mg THREE TIMES A DAY ORAL 05/05/16 09:00 06/04/16 08:59 05/05/16 13:08 Hydroxyurea (Hydrea) 500 mg DAILY ORAL 05/05/16 09:00 05/10/16 08:59 05/05/16 11:11 Lisinopril (Prinivil) 20 mg BID@0900,2100 ORAL 05/05/16 09:00 06/04/16 08:59 05/05/16 11:13 Meclizine HCl (Antivert) 12.5 mg Q6HR ORAL 05/05/16 00:00 06/04/16 00:00 05/05/16 13:02 Metoprolol Tartrate (Lopressor) 50 mg Q12HR ORAL 05/05/16 09:00 06/04/16 08:59 Morphine Sulfate (Morphine Sulfate) 2 mg Q4H PRN IVP Moderate Pain (Pain Scale 4-6) 05/04/16 23:21 05/11/16 23:20 Nitroglycerin (Ntg) 0.4 mg Q5M PRN SL Prn Chest Pain 05/04/16 22:30 06/03/16 22:29 Nystatin (Nystop Powder) 1 applic THREE TIMES A DAY TOPIC 05/05/16 09:00 06/04/16 08:59 05/05/16 13:03 Ondansetron HCl (Zofran) 4 mg Q6H PRN IVP Nausea & Vomiting 05/04/16 23:22 06/03/16 23:21 Polyethylene Glycol (Miralax) 17 gm DAILYPRN PRN ORAL Constipation 05/04/16 23:23 06/03/16 23:22 Temazepam (Restoril) 15 mg HSPRN PRN ORAL Insomnia 05/04/16 23:23 05/11/16 23:22 Allergies: Coded Allergies: No Known Allergies (Unverified , 04/30/16) ROS Limited/Unobtainable: No Constitutional: Reports: no symptoms HEENT: Reports: no symptoms Cardiovascular: Reports: no symptoms Respiratory: Reports: shortness of breath Gastrointestinal/Abdominal: Reports: no symptoms Genitourinary: Reports: no symptoms Neurologic/Psychiatric: Reports: no symptoms Subjective 75 YO F admitted with shortness of breath and leukocytosis. Cover for Int Med- Dr Adrian. Objective Last Vital Signs Date Time Temp Pulse Resp B/P Pulse Ox O2 Delivery O2 Flow Rate FiO2 05/05/16 12:47 98.1 76 18 114/80 94 Room Air 05/04/16 07:28 21 Laboratory Tests Test 05/05/16 06:55 White Blood Count 16.2 K/UL (4.8-10.8) H Red Blood Count 6.16 M/UL (4.20-5.40) H Hemoglobin 15.4 G/DL (12.0-16.0) Hematocrit 52.9 % (37.0-47.0) H Mean Corpuscular Volume 86 FL (80-99) Mean Corpuscular Hemoglobin 25.1 PG (27.0-31.0) L Mean Corpuscular Hemoglobin Concent 29.1 G/DL (32.0-36.0) L Red Cell Distribution Width 19.7 % (11.6-14.8) H Platelet Count 396 K/UL (150-450) Mean Platelet Volume 10.4 FL (6.5-10.1) H Neutrophils (%) (Auto) % (45.0-75.0) Lymphocytes (%) (Auto) % (20.0-45.0) Monocytes (%) (Auto) % (1.0-10.0) Eosinophils (%) (Auto) % (0.0-3.0) Basophils (%) (Auto) % (0.0-2.0) Differential Total Cells Counted 100 Neutrophils % (Manual) 80 % (45-75) H Lymphocytes % (Manual) 4 % (20-45) L Monocytes % (Manual) 7 % (1-10) Eosinophils % (Manual) 0 % (0-3) Basophils % (Manual) 0 % (0-2) Band Neutrophils 9 % (0-8) H Platelet Estimate Adequate Platelet Morphology Normal Hypochromasia 1+ Anisocytosis 1+ Sodium Level 141 mEQ/L (135-145) Potassium Level 4.2 mEQ/L (3.4-4.9) Chloride Level 101 mEQ/L (98-107) Carbon Dioxide Level 27 mEQ/L (20-30) Anion Gap 13 (5-15) Blood Urea Nitrogen 10 mg/dL (7-23) Creatinine 0.7 mg/dL (0.5-0.9) Estimat Glomerular Filtration Rate mL/min (>60) Glucose Level 109 mg/dL (74-106) H Calcium Level 9.0 mg/dL (8.6-10.2) Intake and Output 05/04/16 05/05/16 19:00 07:00 Intake Total 490 ml 210 ml Output Total 600 ml 400 ml Balance -110 ml -190 ml Intake Oral 490 ml 100 ml IV Total 110 ml Output Urine Total 600 ml 400 ml # Voids 6 Objective General Appearance: WD/WN, no apparent distress EENT: PERRL/EOMI, normal ENT inspection, TMs normal Neck: non-tender, normal alignment, supple Cardiovascular: normal peripheral pulses, normal rate, regular rhythm, no gallop/murmur Respiratory/Chest: chest wall non-tender, lungs clear, normal breath sounds, no respiratory distress, no accessory muscle use Abdomen: normal bowel sounds, non tender, soft, no organomegaly, no mass Skin: normal pigmentation, warm/dry Assessment/Plan Problem List: (1) Shortness of breath Assessment & Plan: See pulmonary note. (2) Atrial fibrillation Assessment & Plan: See cardiology note. Continue amiodarone, toprol and pradaxa. (3) Polycythemia vera (4) CAD (coronary artery disease) Assessment & Plan: See cardiology note. LVEF=60-65%; troponin neg (5) Hypercholesterolemia (6) Peripheral neuropathy Assessment & Plan: Venous doppler=neg DVT; Arterial doppler=min ischemia. Continue gabapentin (7) UTI (urinary tract infection) Assessment & Plan: Mixed culture with gram pos. Continue vanco and cefepime (8) Leukocytosis Assessment & Plan: Resolving on vanco and cefepime. (9) CHF (congestive heart failure) Assessment & Plan: see cardiology note. LVEF=60-65% Status: progressing Assessment/Plan Discharge Planning possible in am: A&P home health [phone] RANDA MEYER May 05, 2016 15:54
[2016-05-05 16:00] VITALS: BP 122/71
--- NOTE | 2016-05-05 18:26 | Cardiac Electrophysiology PN ---
Assessment/Plan Assessment/Plan 1. Generalized weakness. 2D echocardiogram shows EF 65%. No [place]. 2. Severe bilateral lower extremity pain. Arterial and venous Doppler showed no DVT and only minimal PVD 3. Paroxysmal atrial fibrillation.Continue amiodarone, Toprol 50 bid, and Pradaxa. 4. Status post [employer] pacemaker implantation was interrogated in the office, which showed normal function. 5. Hypertension. On Toprol 50 bid and lisinopril 20 bid 6. Chronic obstructive pulmonary disease. 7. Lupus. RILEY RN Subjective Subjective No chest pain or SOB. No further atrial fib.Tele DCed. Objective Last 24 Hour Vital Signs Date Time Temp Pulse Resp B/P Pulse Ox O2 Delivery O2 Flow Rate FiO2 05/05/16 16:00 97.5 104 17 122/71 94 Room Air 05/05/16 12:47 98.1 76 18 114/80 94 Room Air 05/05/16 11:13 121/75 05/05/16 08:25 101 20 121/75 95 Room Air 05/05/16 07:30 99 18 Room Air 05/05/16 04:00 98.9 96 20 121/74 96 Room Air 99 05/05/16 00:00 98.0 68 20 147/73 94 Room Air 100 05/04/16 22:30 96.4 62 20 150/79 94 Room Air 05/04/16 20:01 62 175/87 05/04/16 20:00 97.0 81 18 122/67 100 Room Air 05/04/16 19:38 69 16 Room Air Intake and Output 05/04/16 05/05/16 19:00 07:00 Intake Total 490 ml 210 ml Output Total 600 ml 400 ml Balance -110 ml -190 ml Intake Oral 490 ml 100 ml IV Total 110 ml Output Urine Total 600 ml 400 ml # Voids 6 Laboratory Tests Test 05/05/16 06:55 White Blood Count 16.2 K/UL (4.8-10.8) H Red Blood Count 6.16 M/UL (4.20-5.40) H Hemoglobin 15.4 G/DL (12.0-16.0) Hematocrit 52.9 % (37.0-47.0) H Mean Corpuscular Volume 86 FL (80-99) Mean Corpuscular Hemoglobin 25.1 PG (27.0-31.0) L Mean Corpuscular Hemoglobin Concent 29.1 G/DL (32.0-36.0) L Red Cell Distribution Width 19.7 % (11.6-14.8) H Platelet Count 396 K/UL (150-450) Mean Platelet Volume 10.4 FL (6.5-10.1) H Neutrophils (%) (Auto) % (45.0-75.0) Lymphocytes (%) (Auto) % (20.0-45.0) Monocytes (%) (Auto) % (1.0-10.0) Eosinophils (%) (Auto) % (0.0-3.0) Basophils (%) (Auto) % (0.0-2.0) Differential Total Cells Counted 100 Neutrophils % (Manual) 80 % (45-75) H Lymphocytes % (Manual) 4 % (20-45) L Monocytes % (Manual) 7 % (1-10) Eosinophils % (Manual) 0 % (0-3) Basophils % (Manual) 0 % (0-2) Band Neutrophils 9 % (0-8) H Platelet Estimate Adequate Platelet Morphology Normal Hypochromasia 1+ Anisocytosis 1+ Sodium Level 141 mEQ/L (135-145) Potassium Level 4.2 mEQ/L (3.4-4.9) Chloride Level 101 mEQ/L (98-107) Carbon Dioxide Level 27 mEQ/L (20-30) Anion Gap 13 (5-15) Blood Urea Nitrogen 10 mg/dL (7-23) Creatinine 0.7 mg/dL (0.5-0.9) Estimat Glomerular Filtration Rate mL/min (>60) Glucose Level 109 mg/dL (74-106) H Calcium Level 9.0 mg/dL (8.6-10.2) Objective HEAD AND NECK: Showed no JVD. LUNGS: Coarse rhonchi. CARDIOVASCULAR: Regular S1 and S2 with no gallop or murmur.The pacemaker left subclavian is intact. ABDOMEN: Soft and nontender. EXTREMITIES: No pitting edema or clubbing. SHAUN NELSON May 05, 2016 18:26
[2016-05-05 20:00] VITALS: BP 121/76
--- NOTE | 2016-05-05 21:28 | Pulmonology Progress Note ---
Assessment/Plan Problems: (1) Pyelonephritis (2) Severe sepsis (3) Dehydration (4) Pacemaker Assessment/Plan neuro consult for constant dizziness Urin shows mixed bacteria on cefepime and vanco, will dc vanco wbc decreasing sputum pending check cultures cardio to follow, sinus now med/surg if ok with cardio Subjective Allergies: Coded Allergies: No Known Allergies (Unverified , 04/30/16) Objective Last 24 Hour Vital Signs Date Time Temp Pulse Resp B/P Pulse Ox O2 Delivery O2 Flow Rate FiO2 05/05/16 20:41 58 121/76 05/05/16 20:41 121/76 05/05/16 19:11 91 18 Room Air 05/05/16 16:00 97.5 104 17 122/71 94 Room Air 05/05/16 12:47 98.1 76 18 114/80 94 Room Air 05/05/16 11:13 121/75 05/05/16 08:25 101 20 121/75 95 Room Air 05/05/16 07:30 99 18 Room Air 05/05/16 04:00 98.9 96 20 121/74 96 Room Air 99 05/05/16 00:00 98.0 68 20 147/73 94 Room Air 100 05/04/16 22:30 96.4 62 20 150/79 94 Room Air Intake and Output 05/04/16 05/05/16 19:00 07:00 Intake Total 490 ml 210 ml Output Total 600 ml 400 ml Balance -110 ml -190 ml Intake Oral 490 ml 100 ml IV Total 110 ml Output Urine Total 600 ml 400 ml # Voids 6 Objective General Appearance: WD/WN HEENT: normocephalic, atraumatic Respiratory/Chest: chest wall non-tender, lungs clear Breasts: no masses Cardiovascular: normal peripheral pulses Abdomen: normal bowel sounds, soft, non tender Genitourinary: normal external genitalia Extremities: no cyanosis 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, no motor/sensory deficits Lymphatic: no neck adenopathy Laboratory Tests 05/05/16 06:55: White Blood Count 16.2H, Red Blood Count 6.16H, Hemoglobin 15.4, Hematocrit 52.9H, Mean Corpuscular Volume 86, Mean Corpuscular Hemoglobin 25.1L, Mean Corpuscular Hemoglobin Concent 29.1L, Red Cell Distribution Width 19.7H, Platelet Count 396, Mean Platelet Volume 10.4H, Neutrophils (%) (Auto) , Lymphocytes (%) (Auto) , Monocytes (%) (Auto) , Eosinophils (%) (Auto) , Basophils (%) (Auto) , Differential Total Cells Counted 100, Neutrophils % ( Manual) 80H, Lymphocytes % (Manual) 4L, Monocytes % (Manual) 7, Eosinophils % ( Manual) 0, Basophils % (Manual) 0, Band Neutrophils 9H, Platelet Estimate Adequate, Platelet Morphology Normal, Hypochromasia 1+, Anisocytosis 1+, Sodium Level 141, Potassium Level 4.2, Chloride Level 101, Carbon Dioxide Level 27, Anion Gap 13, Blood Urea Nitrogen 10, Creatinine 0.7, Estimat Glomerular Filtration Rate , Glucose Level 109H, Calcium Level 9.0 Current Medications Medications (Trade) Dose Ordered Sig/Escobar Route PRN Reason Start Time Stop Time Status Last Admin Dose Admin Acetaminophen (Tylenol) 650 mg Q4H PRN ORAL fever 05/04/16 23:17 06/03/16 23:16 Acetaminophen/ Hydrocodone Bitart ([place] 5/325) 1 tab Q6H PRN ORAL Mild Pain (Pain Scale 1-3) 05/04/16 23:19 05/11/16 23:18 Albuterol/ Ipratropium (DuoNeb 0.5-3(2.5)mg/3ml) 3 ml Q4H PRN HHN Shortness of Breath 05/04/16 23:20 05/09/16 23:19 Amiodarone HCl (Cordarone) 200 mg DAILY ORAL 05/05/16 09:00 06/04/16 08:59 05/05/16 11:10 Cefepime HCl/ Dextrose (Maxipime/D5W) 110 ml @ 220 mls/hr Q24H IV 05/05/16 01:00 05/12/16 00:59 05/05/16 01:20 Dabigatran (Pradaxa) 150 mg Q12HR ORAL 05/05/16 09:00 06/04/16 08:59 05/05/16 20:40 Gabapentin (Neurontin) 300 mg THREE TIMES A DAY ORAL 05/05/16 09:00 06/04/16 08:59 05/05/16 17:47 Hydroxyurea (Hydrea) 500 mg DAILY ORAL 05/05/16 09:00 05/10/16 08:59 05/05/16 11:11 Lisinopril (Prinivil) 20 mg BID@0900,2100 ORAL 05/05/16 09:00 06/04/16 08:59 05/05/16 20:41 Meclizine HCl (Antivert) 12.5 mg Q6HR ORAL 05/05/16 00:00 06/04/16 00:00 05/05/16 17:47 Metoprolol Tartrate (Lopressor) 50 mg Q12HR ORAL 05/05/16 09:00 06/04/16 08:59 Morphine Sulfate (Morphine Sulfate) 2 mg Q4H PRN IVP Moderate Pain (Pain Scale 4-6) 05/04/16 23:21 05/11/16 23:20 Nitroglycerin (Ntg) 0.4 mg Q5M PRN SL Prn Chest Pain 05/04/16 22:30 06/03/16 22:29 Nystatin (Nystop Powder) 1 applic THREE TIMES A DAY TOPIC 05/05/16 09:00 06/04/16 08:59 05/05/16 17:46 Ondansetron HCl (Zofran) 4 mg Q6H PRN IVP Nausea & Vomiting 05/04/16 23:22 06/03/16 23:21 Polyethylene Glycol (Miralax) 17 gm DAILYPRN PRN ORAL Constipation 05/04/16 23:23 06/03/16 23:22 Temazepam (Restoril) 15 mg HSPRN PRN ORAL Insomnia 05/04/16 23:23 05/11/16 23:22 SURAJ CHIU May 05, 2016 21:28
[2016-05-06] VITALS: BP 148/82
[2016-05-06] MEDS: Cefepime HCl 2 GM in D5W 110 ML IV SCH (01:29)
[2016-05-06] MEDS: Meclizine 25mg tab ORAL SCH ×4 (01:30→18:27)
[2016-05-06 04:00] VITALS: BP 135/75
[2016-05-06 07:40] LABS: MEAN CORPUSCULAR HEMOGLOBIN 26.2 PG (27.0-31.0); MEAN CORPUSCULAR HGB CONC 30.4 G/DL (32.0-36.0); MEAN CORPUSCULAR VOLUME 86 FL (80-99); MEAN PLATELET VOLUME 11.5 FL (6.5-10.1); PLATELET COUNT 389 K/UL (150-450); RED BLOOD COUNT 6.32 M/UL (4.20-5.40); RED CELL DISTRIBUTION WIDTH 20.4 % (11.6-14.8); WHITE BLOOD COUNT 15.8 K/UL (4.8-10.8)
[2016-05-06 08:00] VITALS: BP 126/79
[2016-05-06 08:22] LABS: ANION GAP 18 (5-15); CALCIUM 9.5 mg/dL (8.6-10.2); CARBON DIOXIDE 24 mEQ/L (20-30); CHLORIDE 101 mEQ/L (98-107); CREATININE 0.8 mg/dL (0.5-0.9); HEMOLYSIS 25; POTASSIUM 4.9 mEQ/L (3.4-4.9); SODIUM 143 mEQ/L (135-145)
[2016-05-06 10:11] LABS: ANISOCYTOSIS 1+; BAND NEUTROPHILS % (MANUAL) 5 % (0-8); BASOPHILS % (MANUAL) 0 % (0-2); EOSINOPHILS % (MANUAL) 1 % (0-3); HYPOCHROMASIA 1+; LYMPHOCYTES % (MANUAL) 9 % (20-45); NEUTROPHILS % (MANUAL) 84 % (45-75); PLATELET ESTIMATE ADEQUATE; PLATELET MORPHOLOGY NORMAL; TOTAL CELLS COUNTED 100
[2016-05-06] MEDS: Lisinopril 20mg tab ORAL SCH ×2 (11:38→21:39)
[2016-05-06] MEDS: Hydroxyurea 500mg cap ORAL SCH (11:49)
[2016-05-06] MEDS: Metoprolol 50mg tab ORAL SCH ×2 (11:50→21:38)
[2016-05-06] MEDS: Dabigatran 150mg cap ORAL SCH ×2 (11:50→21:39)
[2016-05-06] MEDS: Amiodarone 200mg tab ORAL SCH (11:50)
[2016-05-06] MEDS: Nystatin Powder 100,000 units/gm 15gm TOPIC SCH ×3 (11:57→18:28)
[2016-05-06 12:09] VITALS: BP 124/70
--- NOTE | 2016-05-06 14:06 | Internal Med Progress Note ---
Subjective Date of Service: May 06, 2016 Physician Name Randa Meyer Attending Physician Antonio Adrian MD Current Medications Medications (Trade) Dose Ordered Sig/Escobar Route PRN Reason Start Time Stop Time Status Last Admin Dose Admin Acetaminophen (Tylenol) 650 mg Q4H PRN ORAL fever 05/04/16 23:17 06/03/16 23:16 Acetaminophen/ Hydrocodone Bitart ([place] 5/325) 1 tab Q6H PRN ORAL Mild Pain (Pain Scale 1-3) 05/04/16 23:19 05/11/16 23:18 Albuterol/ Ipratropium (DuoNeb 0.5-3(2.5)mg/3ml) 3 ml Q4H PRN HHN Shortness of Breath 05/04/16 23:20 05/09/16 23:19 Amiodarone HCl (Cordarone) 200 mg DAILY ORAL 05/05/16 09:00 06/04/16 08:59 05/06/16 11:50 Cefepime HCl/ Dextrose (Maxipime/D5W) 110 ml @ 220 mls/hr Q24H IV 05/05/16 01:00 05/12/16 00:59 05/06/16 01:29 Dabigatran (Pradaxa) 150 mg Q12HR ORAL 05/05/16 09:00 06/04/16 08:59 05/06/16 11:50 Gabapentin (Neurontin) 300 mg THREE TIMES A DAY ORAL 05/05/16 09:00 06/04/16 08:59 05/06/16 13:47 Hydroxyurea (Hydrea) 500 mg DAILY ORAL 05/05/16 09:00 05/10/16 08:59 05/06/16 11:49 Lisinopril (Prinivil) 20 mg BID@0900,2100 ORAL 05/05/16 09:00 06/04/16 08:59 05/06/16 11:38 Meclizine HCl (Antivert) 12.5 mg Q6HR ORAL 05/05/16 00:00 06/04/16 00:00 05/06/16 12:01 Metoprolol Tartrate (Lopressor) 50 mg Q12HR ORAL 05/05/16 09:00 06/04/16 08:59 05/06/16 11:50 Morphine Sulfate (Morphine Sulfate) 2 mg Q4H PRN IVP Moderate Pain (Pain Scale 4-6) 05/04/16 23:21 05/11/16 23:20 Nitroglycerin (Ntg) 0.4 mg Q5M PRN SL Prn Chest Pain 05/04/16 22:30 06/03/16 22:29 Nystatin (Nystop Powder) 1 applic THREE TIMES A DAY TOPIC 05/05/16 09:00 06/04/16 08:59 05/06/16 13:46 Ondansetron HCl (Zofran) 4 mg Q6H PRN IVP Nausea & Vomiting 05/04/16 23:22 06/03/16 23:21 Polyethylene Glycol (Miralax) 17 gm DAILYPRN PRN ORAL Constipation 05/04/16 23:23 06/03/16 23:22 Temazepam (Restoril) 15 mg HSPRN PRN ORAL Insomnia 05/04/16 23:23 05/11/16 23:22 Allergies: Coded Allergies: No Known Allergies (Unverified , 04/30/16) ROS Limited/Unobtainable: No Constitutional: Reports: no symptoms HEENT: Reports: no symptoms Cardiovascular: Reports: no symptoms Respiratory: Reports: shortness of breath Gastrointestinal/Abdominal: Reports: no symptoms Genitourinary: Reports: no symptoms Neurologic/Psychiatric: Reports: no symptoms Subjective 75 YO F admitted with shortness of breath and leukocytosis. Cover for Int Germán- Dr Adrian. Objective Last Vital Signs Date Time Temp Pulse Resp B/P Pulse Ox O2 Delivery O2 Flow Rate FiO2 05/06/16 12:50 97.2 05/06/16 12:09 66 18 124/70 98 Room Air 05/04/16 07:28 21 Laboratory Tests Test 05/06/16 05:25 White Blood Count 15.8 K/UL (4.8-10.8) H Red Blood Count 6.32 M/UL (4.20-5.40) H Hemoglobin 16.6 G/DL (12.0-16.0) H Hematocrit 54.6 % (37.0-47.0) H Mean Corpuscular Volume 86 FL (80-99) Mean Corpuscular Hemoglobin 26.2 PG (27.0-31.0) L Mean Corpuscular Hemoglobin Concent 30.4 G/DL (32.0-36.0) L Red Cell Distribution Width 20.4 % (11.6-14.8) H Platelet Count 389 K/UL (150-450) Mean Platelet Volume 11.5 FL (6.5-10.1) H Neutrophils (%) (Auto) % (45.0-75.0) Lymphocytes (%) (Auto) % (20.0-45.0) Monocytes (%) (Auto) % (1.0-10.0) Eosinophils (%) (Auto) % (0.0-3.0) Basophils (%) (Auto) % (0.0-2.0) Differential Total Cells Counted 100 Neutrophils % (Manual) 84 % (45-75) H Lymphocytes % (Manual) 9 % (20-45) L Monocytes % (Manual) 1 % (1-10) Eosinophils % (Manual) 1 % (0-3) Basophils % (Manual) 0 % (0-2) Band Neutrophils 5 % (0-8) Platelet Estimate Adequate Platelet Morphology Normal Hypochromasia 1+ Anisocytosis 1+ Sodium Level 143 mEQ/L (135-145) Potassium Level 4.9 mEQ/L (3.4-4.9) Chloride Level 101 mEQ/L (98-107) Carbon Dioxide Level 24 mEQ/L (20-30) Anion Gap 18 (5-15) H Blood Urea Nitrogen 15 mg/dL (7-23) Creatinine 0.8 mg/dL (0.5-0.9) Estimat Glomerular Filtration Rate mL/min (>60) Glucose Level 81 mg/dL (74-106) Calcium Level 9.5 mg/dL (8.6-10.2) Intake and Output 05/05/16 05/06/16 19:00 07:00 Intake Total 240 ml 360 ml Balance 240 ml 360 ml Intake Oral 240 ml 360 ml # Voids 3 6 # Bowel Movements 2 Objective General Appearance: WD/WN, no apparent distress EENT: PERRL/EOMI, normal ENT inspection, TMs normal Neck: non-tender, normal alignment, supple Cardiovascular: normal peripheral pulses, normal rate, regular rhythm, no gallop/murmur Respiratory/Chest: chest wall non-tender, lungs clear, normal breath sounds, no respiratory distress, no accessory muscle use Abdomen: normal bowel sounds, non tender, soft, no organomegaly, no mass Skin: normal pigmentation, warm/dry Assessment/Plan Problem List: (1) Shortness of breath Assessment & Plan: See pulmonary note. (2) Atrial fibrillation Assessment & Plan: See cardiology note. Continue amiodarone, toprol and pradaxa. (3) Polycythemia vera (4) CAD (coronary artery disease) Assessment & Plan: See cardiology note. LVEF=60-65%; troponin neg (5) Hypercholesterolemia (6) Peripheral neuropathy Assessment & Plan: Venous doppler=neg DVT; Arterial doppler=min ischemia. Continue gabapentin (7) UTI (urinary tract infection) Assessment & Plan: Mixed culture with gram pos. Continue vanco and cefepime (8) Leukocytosis Assessment & Plan: Resolving on vanco and cefepime. (9) CHF (congestive heart failure) Assessment & Plan: see cardiology note. LVEF=60-65% Assessment/Plan Discharge Planning possible in am: [facility] [phone] RANDA MEYER May 06, 2016 14:06
[2016-05-06 16:10] VITALS: BP 110/71
[2016-05-06 20:00] VITALS: BP 131/72
--- NOTE | 2016-05-06 22:35 | Pulmonology Progress Note ---
Assessment/Plan Problems: (1) Pyelonephritis (2) Severe sepsis (3) Dehydration (4) Pacemaker Assessment/Plan neuro consult for constant dizziness Urin shows mixed bacteria on cefepime and vanco, will dc vanco wbc decreasing sputum pending check cultures cardio to follow, sinus now med/surg if ok with cardio Subjective Allergies: Coded Allergies: No Known Allergies (Unverified , 04/30/16) Objective Last 24 Hour Vital Signs Date Time Temp Pulse Resp B/P Pulse Ox O2 Delivery O2 Flow Rate FiO2 05/06/16 21:39 131/72 05/06/16 21:38 63 131/72 05/06/16 20:00 97.5 63 18 131/72 97 Room Air 05/06/16 19:27 96.8 05/06/16 16:10 96.8 61 20 110/71 97 Room Air 05/06/16 12:09 97.2 66 18 124/70 98 Room Air 05/06/16 11:50 67 126/79 05/06/16 11:38 126/79 05/06/16 08:00 97.0 67 18 126/79 92 Room Air 05/06/16 07:54 69 18 Room Air 05/06/16 04:00 96.4 63 18 135/75 97 Room Air 05/06/16 00:00 97.2 100 18 148/82 96 Room Air Intake and Output 05/05/16 05/06/16 19:00 07:00 Intake Total 240 ml 360 ml Balance 240 ml 360 ml Intake Oral 240 ml 360 ml # Voids 3 6 # Bowel Movements 2 Objective General Appearance: WD/WN HEENT: normocephalic, atraumatic Respiratory/Chest: chest wall non-tender, lungs clear Breasts: no masses Cardiovascular: normal peripheral pulses Abdomen: normal bowel sounds, soft, non tender Genitourinary: normal external genitalia Extremities: no cyanosis 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, no motor/sensory deficits Lymphatic: no neck adenopathy Laboratory Tests 05/06/16 05:25: White Blood Count 15.8H, Red Blood Count 6.32H, Hemoglobin 16.6H, Hematocrit 54.6H, Mean Corpuscular Volume 86, Mean Corpuscular Hemoglobin 26.2L, Mean Corpuscular Hemoglobin Concent 30.4L, Red Cell Distribution Width 20.4H, Platelet Count 389, Mean Platelet Volume 11.5H, Neutrophils (%) (Auto) , Lymphocytes (%) (Auto) , Monocytes (%) (Auto) , Eosinophils (%) (Auto) , Basophils (%) (Auto) , Differential Total Cells Counted 100, Neutrophils % ( Manual) 84H, Lymphocytes % (Manual) 9L, Monocytes % (Manual) 1, Eosinophils % ( Manual) 1, Basophils % (Manual) 0, Band Neutrophils 5, Platelet Estimate Adequate, Platelet Morphology Normal, Hypochromasia 1+, Anisocytosis 1+, Sodium Level 143, Potassium Level 4.9, Chloride Level 101, Carbon Dioxide Level 24, Anion Gap 18H, Blood Urea Nitrogen 15, Creatinine 0.8, Estimat Glomerular Filtration Rate , Glucose Level 81, Calcium Level 9.5 Current Medications Medications (Trade) Dose Ordered Sig/Escobar Route PRN Reason Start Time Stop Time Status Last Admin Dose Admin Acetaminophen (Tylenol) 650 mg Q4H PRN ORAL fever 05/04/16 23:17 06/03/16 23:16 Acetaminophen/ Hydrocodone Bitart ([place] 5/325) 1 tab Q6H PRN ORAL Mild Pain (Pain Scale 1-3) 05/04/16 23:19 05/11/16 23:18 Albuterol/ Ipratropium (DuoNeb 0.5-3(2.5)mg/3ml) 3 ml Q4H PRN HHN Shortness of Breath 05/04/16 23:20 05/09/16 23:19 Amiodarone HCl (Cordarone) 200 mg DAILY ORAL 05/05/16 09:00 06/04/16 08:59 05/06/16 11:50 Cefepime HCl/ Dextrose (Maxipime/D5W) 110 ml @ 220 mls/hr Q24H IV 05/05/16 01:00 05/12/16 00:59 05/06/16 01:29 Dabigatran (Pradaxa) 150 mg Q12HR ORAL 05/05/16 09:00 06/04/16 08:59 05/06/16 21:39 Gabapentin (Neurontin) 300 mg THREE TIMES A DAY ORAL 05/05/16 09:00 06/04/16 08:59 05/06/16 18:28 Hydroxyurea (Hydrea) 500 mg DAILY ORAL 05/05/16 09:00 05/10/16 08:59 05/06/16 11:49 Lisinopril (Prinivil) 20 mg BID@0900,2100 ORAL 05/05/16 09:00 06/04/16 08:59 05/06/16 21:39 Meclizine HCl (Antivert) 12.5 mg Q6HR ORAL 05/05/16 00:00 06/04/16 00:00 05/06/16 18:27 Metoprolol Tartrate (Lopressor) 50 mg Q12HR ORAL 05/05/16 09:00 06/04/16 08:59 05/06/16 21:38 Morphine Sulfate (Morphine Sulfate) 2 mg Q4H PRN IVP Moderate Pain (Pain Scale 4-6) 05/04/16 23:21 05/11/16 23:20 Nitroglycerin (Ntg) 0.4 mg Q5M PRN SL Prn Chest Pain 05/04/16 22:30 06/03/16 22:29 Nystatin (Nystop Powder) 1 applic THREE TIMES A DAY TOPIC 05/05/16 09:00 06/04/16 08:59 05/06/16 18:28 Ondansetron HCl (Zofran) 4 mg Q6H PRN IVP Nausea & Vomiting 05/04/16 23:22 06/03/16 23:21 Polyethylene Glycol (Miralax) 17 gm DAILYPRN PRN ORAL Constipation 05/04/16 23:23 06/03/16 23:22 Temazepam (Restoril) 15 mg HSPRN PRN ORAL Insomnia 05/04/16 23:23 05/11/16 23:22 SURAJ CHIU May 06, 2016 22:35
[2016-05-07] VITALS: BP 146/86
[2016-05-07] MEDS: Meclizine 25mg tab ORAL SCH ×2 (01:44→06:42)
[2016-05-07] MEDS: Cefepime HCl 2 GM in D5W 110 ML IV SCH (01:44)
[2016-05-07 04:00] VITALS: BP 177/91
[2016-05-07] MEDS: Lisinopril 20mg tab ORAL SCH (05:07)
[2016-05-07 08:00] VITALS: BP 154/91
[2016-05-07] MEDS: Nystatin Powder 100,000 units/gm 15gm TOPIC SCH (08:30)
[2016-05-07] MEDS: Amiodarone 200mg tab ORAL SCH (08:30)
[2016-05-07] MEDS: Dabigatran 150mg cap ORAL SCH (08:31)
[2016-05-07] MEDS: Hydroxyurea 500mg cap ORAL SCH (08:31)
[2016-05-07 08:32] VITALS: BP 154/91
[2016-05-07] MEDS: Metoprolol 50mg tab ORAL SCH (08:32)
[2016-05-07 08:35] LABS: MEAN CORPUSCULAR HGB CONC 30.2 G/DL (32.0-36.0); MEAN CORPUSCULAR VOLUME 86 FL (80-99); MEAN PLATELET VOLUME 10.1 FL (6.5-10.1); PLATELET COUNT 333 K/UL (150-450); RED CELL DISTRIBUTION WIDTH 19.7 % (11.6-14.8)
[2016-05-07 08:41] LABS: ANION GAP 13 (5-15); CALCIUM 8.8 mg/dL (8.6-10.2); CARBON DIOXIDE 24 mEQ/L (20-30); CHLORIDE 100 mEQ/L (98-107); CREATININE 0.7 mg/dL (0.5-0.9); HEMOLYSIS 7; POTASSIUM 4.1 mEQ/L (3.4-4.9); SODIUM 137 mEQ/L (135-145)
--- NOTE | 2016-05-07 10:04 | Internal Med Progress Note ---
Subjective Date of Service: May 07, 2016 Physician Name Randa Meyer Attending Physician Antonio Adrian MD Current Medications Medications (Trade) Dose Ordered Sig/Escobar Route PRN Reason Start Time Stop Time Status Last Admin Dose Admin Acetaminophen (Tylenol) 650 mg Q4H PRN ORAL fever 05/04/16 23:17 06/03/16 23:16 Acetaminophen/ Hydrocodone Bitart ([place] 5/325) 1 tab Q6H PRN ORAL Mild Pain (Pain Scale 1-3) 05/04/16 23:19 05/11/16 23:18 05/07/16 05:33 Albuterol/ Ipratropium (DuoNeb 0.5-3(2.5)mg/3ml) 3 ml Q4H PRN HHN Shortness of Breath 05/04/16 23:20 05/09/16 23:19 Amiodarone HCl (Cordarone) 200 mg DAILY ORAL 05/05/16 09:00 06/04/16 08:59 05/07/16 08:30 Cefepime HCl/ Dextrose (Maxipime/D5W) 110 ml @ 220 mls/hr Q24H IV 05/05/16 01:00 05/12/16 00:59 05/07/16 01:44 Dabigatran (Pradaxa) 150 mg Q12HR ORAL 05/05/16 09:00 06/04/16 08:59 05/07/16 08:31 Gabapentin (Neurontin) 300 mg THREE TIMES A DAY ORAL 05/05/16 09:00 06/04/16 08:59 05/07/16 08:32 Hydroxyurea (Hydrea) 500 mg DAILY ORAL 05/05/16 09:00 05/10/16 08:59 05/07/16 08:31 Lisinopril (Prinivil) 20 mg BID@0900,2100 ORAL 05/05/16 09:00 06/04/16 08:59 05/07/16 05:07 Meclizine HCl (Antivert) 12.5 mg Q6HR ORAL 05/05/16 00:00 06/04/16 00:00 05/07/16 06:42 Metoprolol Tartrate (Lopressor) 50 mg Q12HR ORAL 05/05/16 09:00 06/04/16 08:59 05/07/16 08:32 Morphine Sulfate (Morphine Sulfate) 2 mg Q4H PRN IVP Moderate Pain (Pain Scale 4-6) 05/04/16 23:21 05/11/16 23:20 Nitroglycerin (Ntg) 0.4 mg Q5M PRN SL Prn Chest Pain 05/04/16 22:30 06/03/16 22:29 Nystatin (Nystop Powder) 1 applic THREE TIMES A DAY TOPIC 05/05/16 09:00 06/04/16 08:59 05/07/16 08:30 Ondansetron HCl (Zofran) 4 mg Q6H PRN IVP Nausea & Vomiting 05/04/16 23:22 06/03/16 23:21 Polyethylene Glycol (Miralax) 17 gm DAILYPRN PRN ORAL Constipation 05/04/16 23:23 06/03/16 23:22 Temazepam (Restoril) 15 mg HSPRN PRN ORAL Insomnia 05/04/16 23:23 05/11/16 23:22 Allergies: Coded Allergies: No Known Allergies (Unverified , 04/30/16) ROS Limited/Unobtainable: No Constitutional: Reports: no symptoms HEENT: Reports: no symptoms Cardiovascular: Reports: no symptoms Respiratory: Reports: no symptoms Gastrointestinal/Abdominal: Reports: no symptoms Genitourinary: Reports: no symptoms Neurologic/Psychiatric: Reports: no symptoms Subjective 75 YO F admitted with shortness of breath and leukocytosis. Cover for Int Germán- Dr Adrian. Objective Last Vital Signs Date Time Temp Pulse Resp B/P Pulse Ox O2 Delivery O2 Flow Rate FiO2 05/07/16 08:32 61 154/91 05/07/16 08:00 97.6 18 96 Room Air 05/04/16 07:28 21 Laboratory Tests Test 05/07/16 08:15 White Blood Count 11.0 K/UL (4.8-10.8) H Red Blood Count 5.60 M/UL (4.20-5.40) H Hemoglobin 14.6 G/DL (12.0-16.0) Hematocrit 48.2 % (37.0-47.0) H Mean Corpuscular Volume 86 FL (80-99) Mean Corpuscular Hemoglobin 26.0 PG (27.0-31.0) L Mean Corpuscular Hemoglobin Concent 30.2 G/DL (32.0-36.0) L Red Cell Distribution Width 19.7 % (11.6-14.8) H Platelet Count 333 K/UL (150-450) Mean Platelet Volume 10.1 FL (6.5-10.1) Neutrophils (%) (Auto) % (45.0-75.0) Lymphocytes (%) (Auto) % (20.0-45.0) Monocytes (%) (Auto) % (1.0-10.0) Eosinophils (%) (Auto) % (0.0-3.0) Basophils (%) (Auto) % (0.0-2.0) Neutrophils % (Manual) Pending Lymphocytes % (Manual) Pending Platelet Estimate Pending Platelet Morphology Pending Sodium Level 137 mEQ/L (135-145) Potassium Level 4.1 mEQ/L (3.4-4.9) Chloride Level 100 mEQ/L (98-107) Carbon Dioxide Level 24 mEQ/L (20-30) Anion Gap 13 (5-15) Blood Urea Nitrogen 14 mg/dL (7-23) Creatinine 0.7 mg/dL (0.5-0.9) Estimat Glomerular Filtration Rate mL/min (>60) Glucose Level 117 mg/dL (74-106) H Calcium Level 8.8 mg/dL (8.6-10.2) Intake and Output 05/06/16 05/07/16 19:00 07:00 Intake Total 600 ml 720 ml Balance 600 ml 720 ml Intake Oral 600 ml 720 ml # Voids 5 6 # Bowel Movements 3 Objective General Appearance: WD/WN, no apparent distress EENT: PERRL/EOMI, normal ENT inspection, TMs normal Neck: non-tender, normal alignment, supple Cardiovascular: normal peripheral pulses, normal rate, regular rhythm, no gallop/murmur Respiratory/Chest: chest wall non-tender, lungs clear, normal breath sounds, no respiratory distress, no accessory muscle use Abdomen: normal bowel sounds, non tender, soft, no organomegaly, no mass Skin: normal pigmentation, warm/dry Assessment/Plan Problem List: (1) Shortness of breath Assessment & Plan: See pulmonary note. (2) Atrial fibrillation Assessment & Plan: See cardiology note. Continue amiodarone, toprol and pradaxa. (3) Polycythemia vera (4) CAD (coronary artery disease) Assessment & Plan: See cardiology note. LVEF=60-65%; troponin neg (5) Hypercholesterolemia (6) Peripheral neuropathy Assessment & Plan: Venous doppler=neg DVT; Arterial doppler=min ischemia. Continue gabapentin (7) UTI (urinary tract infection) Assessment & Plan: Mixed culture with gram pos. Continue vanco and cefepime (8) Leukocytosis Assessment & Plan: Resolving on vanco and cefepime. (9) CHF (congestive heart failure) Assessment & Plan: see cardiology note. LVEF=60-65% Status: stable Assessment/Plan Discharge home today with [facility] [phone] RANDA MEYER May 07, 2016 10:04
[2016-05-07] MEDS ORDERED: NEURONTIN300 MG ORAL (10:06)
[2016-05-07 11:45] LABS: BAND NEUTROPHILS % (MANUAL) 0 % (0-8); BASOPHILS % (MANUAL) 0 % (0-2); EOSINOPHILS % (MANUAL) 1 % (0-3); LYMPHOCYTES % (MANUAL) 7 % (20-45); NEUTROPHILS % (MANUAL) 91 % (45-75); PLATELET ESTIMATE ADEQUATE; PLATELET MORPHOLOGY NORMAL; TOTAL CELLS COUNTED 100
--- NOTE | 2016-05-09 10:59 | Discharge Summary ---
Discharge Summary Hospital Course Date of Admission Apr 30, 2016 at 14:15 Date of Discharge May 07, 2016 at 12:58 Admitting Diagnosis DEHYDRATION,WEAKNESS HPI Dasha Pascal is a 75 year old female who was admitted on Apr 30, 2016 at 14:15 for Dehydration, Weakness Hospital Course dc summary #[id number] Discharge Medications New Medications: Gabapentin (Neurontin) 300 Mg Capsule 400 MG ORAL THREE TIMES A DAY for 30 Days, CAP Continued Medications: Amiodarone Hcl* (Cordarone*) 200 Mg Tablet 200 MG ORAL DAILY, TAB Calcium Carbonate ([id number]) 500 Mg Tablet 500 MG PO DAILY Clonidine Hcl* (Catapres*) 0.1 Mg Tablet 0.1 MG ORAL EVERY 8 HOURS PRN for SBP >170, TAB Dabigatran Etexilate Mesylate* (Pradaxa*) 150 Mg Capsule 150 MG PO Q12H, #20 CAP Take 1 capsule by mouth every 12 hours. Furosemide* (Lasix*) 40 Mg Tablet 40 MG ORAL DAILY, TAB Gabapentin* (Gabapentin*) 100 Mg Capsule 100 MG ORAL QAM AND 300MG PO QHS, CAP Hydroxyurea* (Hydrea*) 500 Mg Cap 500 MG ORAL DAILY for 30 Days, CAP Lisinopril* (Zestril*) 20 Mg Tablet 20 MG ORAL BID, TAB Metoprolol Tartrate* (Metoprolol Tartrate*) 50 Mg Tablet 50 MG ORAL EVERY 12 HOURS, TAB Potassium Chloride (Potassium Chloride) 10 Meq Tablet.er 20 MEQ ORAL DAILY, #30 TAB 0 Refills Thiamine Hcl (Vitamin B1*) 100 Mg Tablet 100 MG ORAL DAILY, TAB Discharge Condition Upon Discharge: stable Discharge Disposition Patient was discharged to Home with Home Health(06) Discharge Diagnoses: Discharge Instructions Discharge Instructions Special Instructions I have been assigned to complete a D/C Summary on this account. I was not involved in the patient management Cait Melchor NP ([place]) May 09, 2016 10:59
--- NOTE | 2016-05-09 23:29 | Discharge Summary 2 SIG ---
DATE OF ADMISSION: 04/30/2016 DATE OF DISCHARGE: 05/07/2016 REASON FOR ADMISSION: 75-year-old female, presented to emergency room with episode of generalized weakness. She reported increased falls recently. She reported history of atrial fibrillation, hypertension, and pacemaker. She denied any bleeding. No nausea. No vomiting. No abdominal pain. The patient reported shortness of breath in supine position. Workup in the emergency room revealed no fever, low blood pressure of 86/62, pulse oximetry stable on room air, normal heart rate and respiratory rate, white blood count of 16.9, troponin negative, stable LFTs and electrolytes. Urinalysis revealed 2+ leukocyte esterase and moderate amount of bacteria. The patient was admitted for further management. ADMITTING DIAGNOSES: 1. Generalized weakness. 2. Sepsis. 3. Dehydration. 4. Pyelonephritis. HOSPITAL COURSE: In the emergency department, the patient was pancultured and started on empiric antibiotics . Patient was subsequently admitted for further management. The patient was on the IV fluids. Blood culture negative. Sputum culture negative. Urine culture revealed mixed gram-positive organism, leukocytosis trending down to 11.6 on 05/02/2016. Fever resolved. Antibiotic discontinued prior to discharge. [employer] was consulted. Pacemaker interrogation apparently was done in the office.It was determined that the pacemaker has stable functioning. Echocardiogram revealed preserved ejection fraction of 60% to 65% and ventricular systolic pressure of 47, consistent with moderate pulmonary hypertension. The patient with history of paroxysmal atrial fibrillation. [employer] recommended continue anticoagulation with Pradaxa, beta-kelli, and amiodarone. Thyroid function test was stable. Blood pressure was managed with the current regimen of beta-kelli, ZINA inhibitor, and Lasix, and was stable. The patient developed acute onset of positional vertigo with gait instability. Neurology consult was requested. Per Neurology, the patient likely have a benign positional vertigo. However, CT of the head to rule out stroke was ordered. CT of the head revealed no acute intracranial pathology, but was consistent with history of old lacunar infarct. The patient was stable for discharge home. Meclizine was added as needed to existing medication regimen. Fall precaution maintained. The patient was working with physical and occupational therapists. Apparently, the patient has a history of lupus, however, is not on any medication. No evidence of lupus flare up. The patient complained of pain in the lower extremities. Venous duplex of bilateral lower extremities was negative for acute DVT. Arterial Doppler revealed minimal stenosis. Neurontin was added for pain management. The patient was stable for discharge. DISCHARGE MEDICATIONS: See medication reconciliation list. DISCHARGE DIAGNOSES: 1. Sepsis. 2. Dehydration. 3. Urinary tract infection. 4. Pacemaker. 5. Hypertension. 6. Moderate pulmonary hypertension. 7. Paroxysmal atrial fibrillation. 8. Likely benign positional vertigo. 9. History of lupus. 10. Peripheral neuropathy. F DISCHARGE INSTRUCTIONS: The patient discharged home with home health to follow. Follow up with the primary medical doctor and financial retirement plan specialist. Antonio Adrian M.D. I have been assigned to dictate discharge summary on this account and I was not involved in the patient's management. Cait MarquezBrooks Memorial HospitalNaif N.PDuy DR: REN JOB#: [id number] CC: NAKITA
== END 2016-05-07 12:58 | disposition home health service (06) | DRG 872 ==
LOC: EMR 14:05 → 2E 14:15 → EDBEDREQ 21:36 → 2E 22:51 → 3E 05-04 22:20
DX: A41.9 Sepsis, unspecified organism (principal); M32.9 Systemic lupus erythematosus, unspecified; I50.9 Heart failure, unspecified; I27.2 Other secondary pulmonary hypertension; G62.9 Polyneuropathy, unspecified; I48.0 Paroxysmal atrial fibrillation; D45 Polycythemia vera; N12 Tubulo-interstitial nephritis, not specified as acute or chronic; I10 Essential (primary) hypertension; E86.0 Dehydration; J44.9 Chronic obstructive pulmonary disease, unspecified; Z95.0 Presence of cardiac pacemaker; G47.33 Obstructive sleep apnea (adult) (pediatric); I25.10 Atherosclerotic heart disease of native coronary artery without angina pectoris; I25.2 Old myocardial infarction; E78.00 Pure hypercholesterolemia, unspecified; H81.10 Benign paroxysmal vertigo, unspecified ear; Z91.81 History of falling; R65.20 Severe sepsis without septic shock; R53.1 Weakness; M79.605 Pain in left leg; M79.604 Pain in right leg
CPT/HCPCS: 36415; 70450; 71010; 80048; 80053; 81003; 82550; 82553; 82962; 83605; 83735; 83880; 84100; 84439; 84443; 84484; 85007; 85025; 85610; 85730; 86850; 86900; 86901; 87040; 87070; 87086; 87205; 93005; 93306; 93925; 93970; 94664; 94760; J2405

== ENCOUNTER 2016-07-11 10:30 | Outpatient (CLI) | payer MEDICARE, OTHER ==
[~2016-07-11 10:30] MED LIST changes: +CATAPRES0.1 MG ORAL; +METOPROLOL TART50 M1 ORAL; +NEURONTIN300 MG ORAL; +POTASSIUM CHLO10 ME3 ORAL; +ZESTRIL20 MG ORAL
[2016-07-11 11:38] LABS: MEAN CORPUSCULAR HGB CONC 28.9 G/DL (32.0-36.0); MEAN CORPUSCULAR VOLUME 87 FL (80-99); MEAN PLATELET VOLUME 9.6 FL (6.5-10.1); PLATELET COUNT 404 K/UL (150-450); RED BLOOD COUNT 6.44 M/UL (4.20-5.40); RED CELL DISTRIBUTION WIDTH 21.4 % (11.6-14.8); WHITE BLOOD COUNT 13.2 K/UL (4.8-10.8)
[2016-07-11 11:48] LABS: INR 1.4 (0.9-1.1); PROTHROMBIN TIME 14.7 SEC (9.30-11.50)
[2016-07-11 12:14] LABS: ALANINE AMINOTRANSFERASE 18 U/L (3-33); ALBUMIN/GLOBULIN RATIO 0.9 (1.0-2.7); ANION GAP 11 (5-15); ASPARTATE AMINO TRANSFERASE 28 U/L (5-40); CALCIUM 9.6 mg/dL (8.6-10.2); CARBON DIOXIDE 28 mEQ/L (20-30); CHLORIDE 102 mEQ/L (98-107); CHOLESTEROL 147 mg/dL (< 200); CHOLESTEROL/HDL RATIO 3.4 (3.3-4.4); CREATININE 0.9 mg/dL (0.5-0.9); HEMOLYSIS 9; LDL CHOLESTEROL (CALC.) 75 mg/dL (60-99); MAGNESIUM 2.1 mg/dL (1.7-2.5); PHOSPHORUS 3.3 mg/dL (2.5-4.8); POTASSIUM 4.5 mEQ/L (3.4-4.9); SODIUM 141 mEQ/L (135-145); TOTAL PROTEIN 7.4 g/dL (6.6-8.7); URIC ACID 7.1 mg/dL (3.0-7.5)
[2016-07-11 12:15] LABS: ANISOCYTOSIS 2+; BAND NEUTROPHILS % (MANUAL) 6 % (0-8); BASOPHILS % (MANUAL) 0 % (0-2); EOSINOPHILS % (MANUAL) 1 % (0-3); LYMPHOCYTES % (MANUAL) 14 % (20-45); NEUTROPHILS % (MANUAL) 78 % (45-75); PLATELET ESTIMATE ADEQUATE; PLATELET MORPHOLOGY NORMAL; TOTAL CELLS COUNTED 100
[2016-07-11 12:16] LABS: HYPOCHROMASIA 1+; OVALOCYTES OCCASIONAL
== END 2016-07-11 11:30 | disposition home or self-care (01) ==
LOC: LAB 10:30
DX: I10 Essential (primary) hypertension (principal); Z86.73 Personal history of transient ischemic attack (TIA), and cerebral infarction without residual deficits; R10.9 Unspecified abdominal pain
CPT/HCPCS: 36415; 80053; 80061; 82306; 82607; 82746; 83735; 84100; 84443; 84550; 85007; 85025; 85610

== ENCOUNTER 2016-08-15 19:49 | Emergency (ER) | payer MEDICARE, OTHER ==
[~2016-08-15] VITALS: Ht 160 cm; Wt 71.7 kg
--- NOTE | 2016-08-15 20:28 | Emergency Room Report ---
History of Present Illness General Chief Complaint: Pain Source: Patient Present Illness HPI 76-year-old female presents emergency department complaining of 10 in severity, anterior right lower leg hold her pain that she describes as sensitivity, with burning sensation. Patient denies posterior calf pain she denies claudication. Patient states she takes gabapentin for neuropathy however symptoms have progressed over the course of 2 weeks. Patient has a history of A. fib so she some blood thinning medications. Patient denies skin color changes, increased temperature palpation, trauma or fall.Denies CP, Palpitations, LOC, AMS, dizziness, Changes in Vision, loss of sensation, or a sudden severe headache. Allergies: Coded Allergies: No Known Allergies (Unverified , 04/30/16) Patient History Past Medical History: see triage record Past Surgical History: none Pertinent Family History: none Now: No Immunizations: UTD Reviewed Nursing Documentation: PMH: Agreed, PSxH: Agreed Nursing Documentation-PMH Hx Cardiac Problems: Yes - Pacemaker Hx Hypertension: Yes Hx Pacemaker: Yes - Lt. Chest Hx Asthma: No Hx COPD: No Hx Diabetes: No Hx Cancer: No Hx Gastrointestinal Problems: Yes Hx Dialysis: No Hx Neurological Problems: Yes Hx Cerebrovascular Accident: No Hx Transient Ischemic Attacks: Yes Hx Seizures: No Hx Headaches: Yes Hx Numbness: Yes Hx Weakness: Yes - General weakness Review of Systems All Other Systems: negative except mentioned in HPI Physical Exam Vital Signs Date Time Temp Pulse Resp B/P Pulse Ox O2 Delivery O2 Flow Rate FiO2 08/15/16 20:04 98.6 93 16 131/94 99 Room Air Sp02 EP Interpretation: reviewed, normal General Appearance: no apparent distress, alert, GCS 15, non-toxic Head: normocephalic, atraumatic Eyes: bilateral eye PERRL, bilateral eye normal inspection ENT: hearing grossly normal, normal pharynx, no angioedema, normal voice Neck: full range of motion, supple/symm/no masses Respiratory: lungs clear, normal breath sounds, speaking full sentences Cardiovascular #1: regular rate, rhythm, no edema Cardiovascular #2: 2+ dorsalis pedis (R), 2+ dorsalis pedis (L) Musculoskeletal: back normal, gait/station normal, normal range of motion, non- tender, no calf tenderness, other - no calf tenderness, no appreciable swelling , no erythema, DVT or cellulitis not suspected at this time. Pt. has good capillary refill, and equal pulses bilaterally Neurologic: alert, oriented x3, responsive, motor strength/tone normal, sensory intact, cerebellar normal, normal gait, speech normal Psychiatric: judgement/insight normal, memory normal, mood/affect normal Skin: normal color, no rash, warm/dry, well hydrated, other - no calf tenderness, no appreciable swelling, no erythema, DVT or cellulitis not suspected at this time. Pt. has good capillary refill, and equal pulses bilaterally Medical Decision Making PA Attestation Dr. Thompson is my supervising Physician whom patient management has been discussed with. 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 Patient denies posterior calf pain she denies claudication. Patient states she takes gabapentin for neuropathy however symptoms have progressed over the course of 2 weeks. Patient has a history of A. fib so she some blood thinning medications. Patient denies skin color changes, increased temperature palpation, trauma or fall.Denies CP, Palpitations, LOC, AMS, dizziness, Changes in Vision, loss of sensation, or a sudden severe headache. Ddx considered but are not limited to uropathy, paresthesia, electrolyte imbalance, cardiac dysrhythmia, stroke, DVT, cyanocobalamin deficiency. nerve palsy, neuritis Vital signs: are WNL, pt. is afebrile H&PE are most consistent with progression of peripheral neuropathy, no calf tenderness, no appreciable swelling, no erythema, DVT or cellulitis not suspected at this time. Pt. has good capillary refill, and equal pulses bilaterally. ORDERS: none required at this time, the diagnosis is clinical ED INTERVENTIONS: None required at this time. - Will d/c with rx for capsaicin cream recommended by Dr. Thompson. - D/w pt. to follow up with Neurologist if conservative treatment does not relieve symptoms or for further evaluation. Pt encouraged to d/w with her PCP the progression of her symptoms. I do not suspect an emergent condition at this time. with current presentation pt. is stable for close outpatient follow up. DISCHARGE: At this time pt. is stable for d/c to home. Will provide printed patient care instructions, and any necessary prescriptions. Care plan and follow up instructions have been discussed with the patient prior to discharge. Last Vital Signs Date Time Temp Pulse Resp B/P Pulse Ox O2 Delivery O2 Flow Rate FiO2 08/15/16 20:04 98.6 93 16 131/94 99 Room Air Disposition: HOME, SELF-CARE Condition: Stable Scripts Capsaicin (CAPSAICIN) 42.5 Gm Cream..g. 1 APPLIC TP BID for For Pain, #42.5 GM Prov: Phuong Rogel 08/15/16 Patient Instructions: Neuropathic Pain, Peripheral Neuropathy Additional Instructions: Take medications as directed. Follow up with a Primary Care Provider in 3-5 days, even if your symptoms have resolved. --Please review list of primary care clinics, if you do not already have a primary care provider Return sooner to ED if new symptoms occur, or current symptoms become worse. - Please note that this Emergency Department Report was dictated using [employer] professor technology software, occasionally this can lead to erroneous entry secondary to interpretation by the dictation equipment. Phuong Rogel Aug 15, 2016 20:28
[2016-08-15] MEDS ORDERED: CAPSAICIN42.5 GM TP (20:53)
[2016-08-15 21:28] VITALS: BP 135/95
[2016-08-15 21:29] VITALS: BP 135/95
== END 2016-08-15 21:30 | disposition home or self-care (01) ==
LOC: EMR 21:30
DX: G60.3 Idiopathic progressive neuropathy (principal); Z95.0 Presence of cardiac pacemaker; I10 Essential (primary) hypertension; Z86.73 Personal history of transient ischemic attack (TIA), and cerebral infarction without residual deficits; I48.91 Unspecified atrial fibrillation; Z79.01 Long term (current) use of anticoagulants
CPT/HCPCS: 99283

== ENCOUNTER 2016-10-04 08:00 | Outpatient (CLI) | payer MEDICARE, OTHER ==
[~2016-10-04 08:00] MED LIST changes: +CAPSAICIN42.5 GM TP
[2016-10-04 08:37] LABS: MEAN CORPUSCULAR HEMOGLOBIN 26.1 PG (27.0-31.0); MEAN CORPUSCULAR HGB CONC 28.6 G/DL (32.0-36.0); MEAN CORPUSCULAR VOLUME 91 FL (80-99); MEAN PLATELET VOLUME 11.4 FL (6.5-10.1); PLATELET COUNT 335 K/UL (150-450); RED BLOOD COUNT 6.22 M/UL (4.20-5.40); RED CELL DISTRIBUTION WIDTH 20.7 % (11.6-14.8); WHITE BLOOD COUNT 10.6 K/UL (4.8-10.8)
[2016-10-04 08:53] LABS: ALANINE AMINOTRANSFERASE 16 U/L (3-33); ALBUMIN/GLOBULIN RATIO 0.9 (1.0-2.7); ANION GAP 9 (5-15); ASPARTATE AMINO TRANSFERASE 25 U/L (5-40); CALCIUM 9.3 mg/dL (8.6-10.2); CARBON DIOXIDE 28 mEQ/L (20-30); CHLORIDE 100 mEQ/L (98-107); CHOLESTEROL 142 mg/dL (< 200); CHOLESTEROL/HDL RATIO 3.7 (3.3-4.4); CREATININE 0.8 mg/dL (0.5-0.9); HEMOLYSIS 5; LDL CHOLESTEROL (CALC.) 80 mg/dL (60-99); MAGNESIUM 2.2 mg/dL (1.7-2.5); PHOSPHORUS 3.7 mg/dL (2.5-4.8); POTASSIUM 4.4 mEQ/L (3.4-4.9); SODIUM 137 mEQ/L (135-145); TOTAL PROTEIN 7.1 g/dL (6.6-8.7); URIC ACID 7.2 mg/dL (3.0-7.5)
[2016-10-04 09:04] LABS: HEMOGLOBIN A1C 5.1 % (< 6.0)
[2016-10-04 09:07] LABS: INR 1.6 (0.9-1.1); PROTHROMBIN TIME 16.6 SEC (9.30-11.50)
[2016-10-04 10:20] LABS: BAND NEUTROPHILS % (MANUAL) 0 % (0-8); BASOPHILS % (MANUAL) 1 % (0-2); EOSINOPHILS % (MANUAL) 1 % (0-3); LYMPHOCYTES % (MANUAL) 12 % (20-45); NEUTROPHILS % (MANUAL) 86 % (45-75); PLATELET ESTIMATE ADEQUATE; PLATELET MORPHOLOGY NORMAL; TOTAL CELLS COUNTED 100
[2016-10-04 10:21] LABS: ANISOCYTOSIS 2+
[2016-10-04 10:23] LABS: HYPOCHROMASIA 1+
[2016-10-04 10:25] LABS: OVALOCYTES OCCASIONAL; STOMATOCYTES OCCASIONAL
--- NOTE | 2016-10-04 12:47 | Diagnostic Imaging Report ---
Indication: Abdominal pain Technique: Continuous helical transaxial imaging of the abdomen and pelvis was obtained from the lung bases to the pubic symphysis during intravenous contrast administration. Coronal 2-D reformats were also obtained. Study obtained in a Siemens sensation [address] Total Dose length Product (DLP): [address] Dose Index Volume (CTDIvol): 18.16, 0.15 mGy Comparison: None Findings: Minimal peripheral reticular densities noted at the visualized portions of the lung bases. This is nonspecific. Slightly lobulated hypodensity noted in the spleen measuring 3.5 cm. This is probably cystic. The spleen is globular and prominent in size measures 13 x 15 cm. There is a pacemaker. Small hiatal hernia present. Gallbladder is unremarkable. The liver is unremarkable. No adrenal mass seen. The kidneys are scanned during arterial phase and as such not optimally evaluated. That said no obvious abnormalities seen. There is no hydronephrosis. Pancreas is grossly unremarkable. There is no biliary ductal dilatation identified. Bowel gas pattern is normal. There is diverticula noted in the sigmoid colon. The appendix is not fully seen. There are no secondary signs of acute appendicitis. No free fluid or free air identified. The uterus is not visualized. Urinary bladder is nondistended. Surgical clips noted within the retroperitoneum within the abdomen and pelvis. There is narrowing of intervertebral discs and accompanying endplate osteophyte formation. Hypertrophied facet joints also demonstrated. Impression: Globular and prominent spleen. 3.5 cm splenic cyst. Hiatal hernia Basilar interstitial disease. Nonspecific. Diverticulosis of the sigmoid colon. Spondylosis. Evidence of previous retroperitoneal dissection. The nature of the surgery is unknown. Status post hysterectomy Pacemaker The CT scanner at [facility] is accredited by the [employer] and the scans are performed using dose optimization techniques as appropriate to a performed exam including Automatic Exposure control.
--- NOTE | 2016-10-04 13:37 | Diagnostic Imaging Report ---
APPROVED REPORT CPT Code: 85604 Present Symptoms Lower Extremity Pain: Right BILATERAL: Imaging reveals a patent deep venous system bilaterally. There is no evidence of thrombus within the femoral, popliteal or tibial segments. The greater saphenous veins are also within normal limits. Doppler indicates normal spontaneous flow within these segments.
== END 2016-10-04 10:00 | disposition home or self-care (01) ==
LOC: CAT 08:00
DX: R10.9 Unspecified abdominal pain (principal); I10 Essential (primary) hypertension; I48.91 Unspecified atrial fibrillation; E66.9 Obesity, unspecified; M10.9 Gout, unspecified; D73.4 Cyst of spleen; K44.9 Diaphragmatic hernia without obstruction or gangrene; K57.90 Diverticulosis of intestine, part unspecified, without perforation or abscess without bleeding; M47.9 Spondylosis, unspecified; Z90.710 Acquired absence of both cervix and uterus; Z95.0 Presence of cardiac pacemaker
CPT/HCPCS: 36415; 74177; 80053; 80061; 82306; 82607; 82746; 83036; 83735; 84100; 84443; 84550; 85007; 85025; 85610; 85730; 93970; Q9967

== ENCOUNTER 2017-01-29 07:21 | Inpatient (IN) | payer MEDICARE, OTHER ==
[~2017-01-29] VITALS: Ht 160 cm; Wt 66.7 kg
[2017-01-29] MEDS ORDERED: Sodium Chloride 500ML 500 ML IV ONE ×2 (07:35→10:43)
[2017-01-29] MEDS ORDERED: BANOPHEN25 MG PO (07:39)
[2017-01-29 08:45] LABS: MEAN CORPUSCULAR HEMOGLOBIN 28.8 PG (27.0-31.0); MEAN CORPUSCULAR HGB CONC 30.2 G/DL (32.0-36.0); MEAN CORPUSCULAR VOLUME 95 FL (80-99); MEAN PLATELET VOLUME 9.3 FL (6.5-10.1); PLATELET COUNT 248 K/UL (150-450); RED BLOOD COUNT 5.11 M/UL (4.20-5.40); RED CELL DISTRIBUTION WIDTH 19.6 % (11.6-14.8); WHITE BLOOD COUNT 11.9 K/UL (4.8-10.8)
[2017-01-29 08:48] LABS: ANION GAP 5 mmol/L (5-15); CARBON DIOXIDE 29 MMOL/L (21-32); CHLORIDE 103 MMOL/L (98-107); CREATININE 0.7 MG/DL (0.55-1.30); POTASSIUM 4.4 MMOL/L (3.5-5.1); SODIUM 137 MMOL/L (136-145)
--- NOTE | 2017-01-29 08:54 | Emergency Room Report ---
History of Present Illness General Chief Complaint: Generalized Weakness Source: Patient, Medical Record Present Illness HPI 76-year-old female presents ED complaining of weakness. States that the last few days she's been feeling increasingly weak and unable to walk with steady gait. Denies any dizziness. Notes multiple falls. Denies any chest pain or shortness of breath. Denies fevers or chills. No other aggravating or relieving factors. Denies any other associated symptoms Allergies: Coded Allergies: No Known Allergies (Unverified , 04/30/16) Patient History Past Medical History: HTN, CVA/TIA Past Surgical History: pacemaker Pertinent Family History: none Social History: Denies: smoking, alcohol use, drug use Now: No Immunizations: UTD Reviewed Nursing Documentation: PMH: Agreed, PSxH: Agreed Nursing Documentation-PMH Past Medical History: No History, Except For Hx Cardiac Problems: Yes - Pacemaker Hx Hypertension: Yes Hx Pacemaker: Yes - Lt. Chest Hx Asthma: No Hx COPD: No Hx Diabetes: No Hx Cancer: No Hx Gastrointestinal Problems: Yes Hx Dialysis: No Hx Neurological Problems: Yes Hx Cerebrovascular Accident: No Hx Transient Ischemic Attacks: Yes Hx Seizures: No Hx Headaches: Yes Hx Numbness: Yes Hx Weakness: Yes - General weakness Review of Systems All Other Systems: negative except mentioned in HPI Physical Exam Vital Signs Date Time Temp Pulse Resp B/P (MAP) Pulse Ox O2 Delivery O2 Flow Rate FiO2 01/29/17 07:25 98.8 75 18 154/82 96 Room Air Sp02 EP Interpretation: reviewed, normal General Appearance: no apparent distress, alert, GCS 15, non-toxic Head: normocephalic, atraumatic Eyes: bilateral eye normal inspection, bilateral eye PERRL ENT: hearing grossly normal, normal pharynx, no angioedema, normal voice Neck: full range of motion, supple/symm/no masses Respiratory: chest non-tender, lungs clear, normal breath sounds, speaking full sentences Cardiovascular #1: regular rate, rhythm, no edema Cardiovascular #2: 2+ carotid (R), 2+ carotid (L), 2+ radial (R), 2+ radial (L) , 2+ dorsalis pedis (R), 2+ dorsalis pedis (L) Gastrointestinal: normal bowel sounds, non tender, soft, non-distended, no guarding, no rebound Rectal: deferred Genitourinary: normal inspection, no CVA tenderness Musculoskeletal: back normal, normal range of motion, non-tender Neurologic: alert, oriented x3, responsive, motor strength/tone normal, sensory intact, speech normal Psychiatric: judgement/insight normal, memory normal, mood/affect normal, no suicidal/homicidal ideation Reflexes: 3+ bicep (R), 3+ bicep (L), 3+ tricep (R), 3+ tricep (L), 3+ knee (R) , 3+ knee (L) Skin: normal color, no rash, warm/dry, well hydrated Lymphatic: no adenopathy Medical Decision Making Diagnostic Impression: Primary Impression: Generalized weakness Additional Impressions: Fall Qualified Codes: W19.XXXA - Unspecified fall, initial encounter Unsteady gait UTI (urinary tract infection) Qualified Codes: N39.0 - Urinary tract infection, site not specified ER Course Hospital Course 68-year-old female presents ED complaining of weakness, frequent falls with head injury recently. Bruising to the back Differential diagnoses include: UT/unstable angina, arrythmia, dehydration, CVA/ TIA Clinical course Patient placed on stretcher. on monitor and storage bin tender. After initial history and physical I ordered labs, EKG, chest x-ray, IVFs, CT Brain, CT Tspine and Lspine labs reviewed- noted leukocytosis, hemoglobin/hematocrit ok, electrolytes okay, troponins negative, UA + bacteria EKG- NSR, no acute ischemic changes interpreted by me Chest x-ray- cardiomegaly, pacemaker CT brain, Tspine and Lspine show no acute porocess Abx given Case discussed with Dr. Adrian and he agreed to accept the patient to his service for further care and support I. I feel this is a highly complex case requiring extensive working including EKG/Rhythm strip, Xray/CT/US, Blood/urine lab work, repeat exams while in ED, and administration of strong opiates/narcotics for pain control, admission to hospital or close patient follow up. Diagnosis - weakness, fall, unsteady gait, UTI admitted to floor in serious condition Labs Test 01/29/17 08:20 01/29/17 09:13 White Blood Count 11.9 K/UL (4.8-10.8) Red Blood Count 5.11 M/UL (4.20-5.40) Hemoglobin 14.7 G/DL (12.0-16.0) Hematocrit 48.7 % (37.0-47.0) Mean Corpuscular Volume 95 FL (80-99) Mean Corpuscular Hemoglobin 28.8 PG (27.0-31.0) Mean Corpuscular Hemoglobin Concent 30.2 G/DL (32.0-36.0) Red Cell Distribution Width 19.6 % (11.6-14.8) Platelet Count 248 K/UL (150-450) Mean Platelet Volume 9.3 FL (6.5-10.1) Neutrophils (%) (Auto) % (45.0-75.0) Lymphocytes (%) (Auto) % (20.0-45.0) Monocytes (%) (Auto) % (1.0-10.0) Eosinophils (%) (Auto) % (0.0-3.0) Basophils (%) (Auto) % (0.0-2.0) Sodium Level 137 MMOL/L (136-145) Potassium Level 4.4 MMOL/L (3.5-5.1) Chloride Level 103 MMOL/L (98-107) Carbon Dioxide Level 29 MMOL/L (21-32) Anion Gap 5 mmol/L (5-15) Blood Urea Nitrogen 13 mg/dL (7-18) Creatinine 0.7 MG/DL (0.55-1.30) Estimat Glomerular Filtration Rate mL/min (>60) Glucose Level 114 MG/DL (74-106) Calcium Level 9.0 MG/DL (8.5-10.1) Total Bilirubin 1.0 MG/DL (0.2-1.0) Aspartate Amino Transf (AST/SGOT) 32 U/L (15-37) Alanine Aminotransferase (ALT/SGPT) 20 U/L (12-78) Alkaline Phosphatase 112 U/L (46-116) Total Creatine Kinase 49 U/L (26-308) Creatine Kinase MB < 0.5 NG/ML (0.0-3.6) Creatine Kinase MB Relative Index 1.0 Troponin I 0.007 ng/mL (0.000-0.056) Pro-B-Type Natriuretic Peptide 2663 pg/mL (0-125) Total Protein 7.5 G/DL (6.4-8.2) Albumin 2.9 G/DL (3.4-5.0) Globulin 4.6 g/dL Albumin/Globulin Ratio 0.6 (1.0-2.7) Urine Color Pale yellow Urine Appearance Slightly cloudy Urine pH 5 (4.5-8.0) Urine Specific [place] 1.015 (1.005-1.035) Urine Protein 2+ (NEGATIVE) Urine Glucose (UA) Negative (NEGATIVE) Urine Ketones Negative (NEGATIVE) Urine Occult Blood 2+ (NEGATIVE) Urine Nitrite Negative (NEGATIVE) Urine Bilirubin Negative (NEGATIVE) Urine Urobilinogen Normal MG/DL (0.0-1.0) Urine Leukocyte Esterase 1+ (NEGATIVE) EKG Diagnostic Results Rate: normal Rhythm: NSR ST Segments: no acute changes ASA given to the pt in ED: No Rhythm Strip Diag. Results EP Interpretation: yes Rhythm: NSR, no PVC's, no ectopy Chest X-Ray Diagnostic Results Chest X-Ray Diagnostic Results : Chest X-Ray Ordered: Yes # of Views/Limited/Complete: 1 View Indication: Other - weakness EP Interpretation: Yes Interpretation: no consolidation, no pneumothorax, no acute cardiopulmonary disease, other - cardiomegaly. pacemaker Impression: Other - cardiomegaly Electronically Signed by: Electronically signed by Rush Guillermo MD CT/MRI/US Diagnostic Results CT/MRI/US Diagnostic Results #1: Imaging Test Ordered: CT Head Impression no acute process CT/MRI/US Diagnostic Results #2: Imaging Test Ordered: CT T spine Impression no acute process CT/MRI/US Diagnostic Results #3: Imaging Test Ordered: CT L spine Impression no acute process Last Vital Signs Date Time Temp Pulse Resp B/P (MAP) Pulse Ox O2 Delivery O2 Flow Rate FiO2 01/29/17 07:25 98.8 75 18 154/82 96 Room Air Status: improved Disposition: ADMITTED INPATIENT Condition: Serious Referrals: Antonio Adrian MD (PCP) RUSH GUILLERMO M.D. Jan 29, 2017 08:54
[2017-01-29] MEDS ORDERED: Acetaminophen 500mg (ES) tab ORAL ONE (09:00)
[2017-01-29 09:04] LABS: ALANINE AMINOTRANSFERASE 20 U/L (12-78); ALBUMIN/GLOBULIN RATIO 0.6 (1.0-2.7); ASPARTATE AMINO TRANSFERASE 32 U/L (15-37); CKMB < 0.5 NG/ML (0.0-3.6); TOTAL PROTEIN 7.5 G/DL (6.4-8.2)
[2017-01-29 09:26] LABS: APPEARANCE,URINE SLIGHTLY CLOUDY; KETONES,URINE NEGATIVE (NEGATIVE); LEUKOCYTE ESTERASE ,URINE 1+ (NEGATIVE); NITRITE,URINE NEGATIVE (NEGATIVE); PH,URINE 5 (4.5-8.0); PROTEIN,URINE 2+ (NEGATIVE); UROBILINOGEN,URINE NORMAL MG/DL (0.0-1.0)
[2017-01-29 10:00] VITALS: BP 121/57
[2017-01-29 10:08] LABS: BACTERIA,URINE FEW /HPF; SQUAMOUS EPITHELIAL CELL,UR FEW /LPF (NONE/OCC)
[2017-01-29 10:13] LABS: BAND NEUTROPHILS % (MANUAL) 2 % (0-8); LYMPHOCYTES % (MANUAL) 3 % (20-45); NEUTROPHILS % (MANUAL) 94 % (45-75); TOTAL CELLS COUNTED 100
[2017-01-29 10:15] LABS: BASOPHILS % (MANUAL) 0 % (0-2); EOSINOPHILS % (MANUAL) 0 % (0-3); PLATELET ESTIMATE ADEQUATE; PLATELET MORPHOLOGY NORMAL
[2017-01-29] MEDS ORDERED: cefTRIAXone 1 GM in NS 55 ML IVPB ONE (10:15)
[2017-01-29 10:16] LABS: HYPOCHROMASIA 1+
[2017-01-29 10:18] LABS: OVALOCYTES 1+; POIKILOCYTOSIS 1+
[2017-01-29] MEDS ORDERED: Metoclopramide 10mg/2ml Inj IVP ONE (10:45)
[2017-01-29] MEDS ORDERED: Morphine Sulfate 4mg/ml Inj IVP ONE (10:45)
[2017-01-29] MEDS ORDERED: DiphenhydrAMINE 50mg/ml Inj IVP ONE (10:45)
[2017-01-29] MEDS ORDERED: Metoprolol 5mg/5ml Inj IVP ONE (11:15)
[2017-01-29 11:20] VITALS: BP 104/64
[2017-01-29 12:00] VITALS: BP 115/85
[2017-01-29 16:00] VITALS: BP 104/52
[2017-01-29] MEDS: NovoLOG Insulin Flexpen SUBQ SCH ×2 (16:08→21:00)
[2017-01-29] MEDS: Lisinopril 20mg tab ORAL SCH (17:32)
[2017-01-29] MEDS ORDERED: Capsaicin 0.075% Cream TOPIC SCH (18:00)
--- NOTE | 2017-01-29 19:07 | History & Physical ---
History and Physical History & Physicial Dictated for Int Med-Dr Adrian no. [id number]. RANDA MEYER Jan 29, 2017 19:07
[2017-01-29 20:00] VITALS: BP 122/78
[2017-01-29] MEDS: Dabigatran 150mg cap ORAL SCH (21:00)
[2017-01-29] MEDS: Metoprolol Tartrate 50mg tab ORAL SCH (21:01)
--- NOTE | 2017-01-30 00:16 | History and Physical Report ---
DATE OF ADMISSION: 01/29/2017 CHIEF COMPLAINT: The patient is a 76-year-old female, who presents with chief complaint of generalized weakness and chest pain. HISTORY OF PRESENT ILLNESS: The patient states her pacemaker is due to be checked. 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 The patient presented to [facility] today, 01/29/2017. The patient complains of a three-day history of generalized weakness. The patient states her feet are hurting and she is unable to walk. The patient states she has been falling frequently secondary to weakness of the bilateral lower extremities. The patient was admitted for generalized weakness and chest pain to rule out acute coronary syndrome. PAST MEDICAL HISTORY: Significant for: 1. History of atrial fibrillation. 2. Polycythemia vera. 3. Hypertension. 4. Obstructive sleep apnea. 5. Coronary artery disease, status post myocardial infarction. 6. Hypercholesterolemia. 7. Congestive heart failure. PAST SURGICAL HISTORY: Significant for: 1. Pacemaker. 2. Total abdominal hysterectomy. CURRENT MEDICATIONS: 1. Amiodarone 200 mg one tablet p.o. daily. 2. Calcium carbonate 500 mg one tablet p.o. daily. 3. Clonidine 0.1 mg p.o. q.8 h. p.r.n. 4. Pradaxa 150 mg p.o. twice daily. 5. Banophen 25 mg p.o. daily. 6. Lasix 40 mg p.o. daily. 7. Gabapentin 400 mg one tablet p.o. three times daily. 8. Hydroxyurea 500 mg p.o. daily. 9. Lisinopril 20 mg p.o. twice daily. 10. Metoprolol 50 mg p.o. twice daily. 11. Potassium chloride 20 mEq p.o. daily. 12. Thiamine 100 mg p.o. daily. ALLERGIES: No known drug allergies. SOCIAL HISTORY: The patient is single. The patient lives with her nephew. The patient denies tobacco use, having quit 20 years ago. The patient denies alcohol use. REVIEW OF SYSTEMS: CONSTITUTIONAL: The patient denies weight loss or weight gain. The patient denies fevers or chills. HEENT: The patient denies ear or throat pain. The patient denies headache. CARDIOVASCULAR: The patient complains of chest pain as above. The patient denies seizures. The patient complains of generalized weakness. The patient denies palpitations. CHEST: The patient denies wheezes or shortness of breath. ABDOMINAL: The patient denies nausea, vomiting, diarrhea, or constipation. GENITOURINARY: The patient denies dysuria or increased frequency of urination. NEUROMUSCULAR: The patient denies seizures or generalized weakness. PHYSICAL EXAMINATION: VITAL SIGNS: Temperature 97.3, respirations 19, pulse 79 to 114, and blood pressure 104/53. GENERAL: The patient is a well-developed and well-nourished female, no apparent distress. HEENT: Eyes, pupils are equal and responsive to light and accommodation. Extraocular movements are intact. NECK: Supple without lymphadenopathy. CHEST: Lungs are clear to auscultation bilaterally without wheezes or rales. CARDIOVASCULAR: Regular rhythm and rate. S1 and S2 are normal without murmurs, rubs, or gallops. ABDOMEN: Soft, nontender, and nondistended. Positive bowel sounds. No evidence of hepatosplenomegaly. Currently, no rebound or guarding noted. EXTREMITIES: Negative for clubbing, cyanosis, or edema. RECTAL: Refused. GENITAL: Refused. NEUROLOGIC: Cranial nerves II through XII are grossly intact without focal deficits. LABORATORY STUDIES: WBC 11.9, hemoglobin 14.7, hematocrit 48.7, and platelets 248,000. Sodium 137, potassium 4.4, chloride 103, CO2 29, BUN 13, creatinine 0.7, and glucose 114. Troponin less than 0.007. BNP elevated at 2663. ASSESSMENT: This is a 76-year-old female: 1. Chest pain. 2. Generalized weakness. 3. Bilateral foot pain. 4. Atrial fibrillation. 5. Polycythemia vera. 6. Hypertension. 7. Chronic obstructive sleep apnea. 8. Coronary artery disease, status post myocardial infarction. 9. Hypercholesteremia. 10. Congestive heart failure. TREATMENT: 1. Chest pain/coronary artery disease/congestive heart failure. Cardiology consultation has been obtained with Dr. River Freitas. A pacemaker check may be performed during this hospitalization. Serial troponin levels will be performed to rule out acute coronary syndrome. We will follow recommendations of Cardiology. 2. Bilateral foot pain. The patient states her feet are so painful. She is unable to walk. A Podiatry consultation has been obtained with Dr. Fam. X-rays of the bilateral feet are pending. 3. Atrial fibrillation. Continue amiodarone as above. A Cardiology consultation has been obtained with Dr. River Freitas. 4. Polycythemia vera. Continue hydroxyurea as above. 5. Hypertension. Continue metoprolol and lisinopril as above. 6. Obstructive sleep apnea. 7. Coronary artery disease. See chest pain as above. 8. Hypercholesterolemia. Continue Lipitor as above. 9. Congestive heart failure as above. A Cardiology consultation has been obtained with Dr. River Freitas. Roshan Edwards M.D. DR: DOLORES JOB#: [id number] CC:
[2017-01-30 00:20] VITALS: BP 134/69
[2017-01-30 04:30] VITALS: BP 128/67
[2017-01-30] MEDS: NovoLOG Insulin Flexpen SUBQ SCH ×4 (06:30→20:54)
[2017-01-30 08:28] VITALS: BP 152/76
[2017-01-30 08:44] LABS: MEAN CORPUSCULAR HGB CONC 29.7 G/DL (32.0-36.0); MEAN CORPUSCULAR VOLUME 94 FL (80-99); MEAN PLATELET VOLUME 9.6 FL (6.5-10.1); PLATELET COUNT 256 K/UL (150-450); RED BLOOD COUNT 4.71 M/UL (4.20-5.40); RED CELL DISTRIBUTION WIDTH 21.3 % (11.6-14.8); WHITE BLOOD COUNT 11.9 K/UL (4.8-10.8)
[2017-01-30 09:11] LABS: ALANINE AMINOTRANSFERASE 18 U/L (12-78); ALBUMIN/GLOBULIN RATIO 0.7 (1.0-2.7); ANION GAP 8 mmol/L (5-15); ASPARTATE AMINO TRANSFERASE 20 U/L (15-37); CALCIUM 8.3 MG/DL (8.5-10.1); CARBON DIOXIDE 27 MMOL/L (21-32); CHLORIDE 107 MMOL/L (98-107); CREATININE 0.7 MG/DL (0.55-1.30); MAGNESIUM 1.9 MG/DL (1.8-2.4); POTASSIUM 3.8 MMOL/L (3.5-5.1); SODIUM 142 MMOL/L (136-145)
[2017-01-30] MEDS: Amiodarone 200mg tab ORAL SCH (09:24)
[2017-01-30] MEDS: Hydroxyurea 500mg cap ORAL SCH (09:25)
[2017-01-30] MEDS: Dabigatran 150mg cap ORAL SCH ×2 (09:25→20:52)
[2017-01-30] MEDS: Thiamine 100mg tab ORAL SCH (09:25)
[2017-01-30] MEDS: Furosemide 40mg tab ORAL SCH (09:25)
[2017-01-30] MEDS: Metoprolol Tartrate 50mg tab ORAL SCH (09:26)
[2017-01-30] MEDS: Lisinopril 20mg tab ORAL SCH ×2 (09:26→17:20)
[2017-01-30] MEDS: cefTRIAXone 1 GM in NS 55 ML IVPB SCH (09:28)
[2017-01-30 09:43] LABS: BAND NEUTROPHILS % (MANUAL) 2 % (0-8); EOSINOPHILS % (MANUAL) 1 % (0-3); LYMPHOCYTES % (MANUAL) 8 % (20-45); NEUTROPHILS % (MANUAL) 87 % (45-75); TOTAL CELLS COUNTED 100
[2017-01-30 09:44] LABS: BASOPHILS % (MANUAL) 0 % (0-2); PLATELET ESTIMATE ADEQUATE; PLATELET MORPHOLOGY NORMAL
[2017-01-30 09:45] LABS: ANISOCYTOSIS 2+; POIKILOCYTOSIS 1+; POLYCHROMASIA 1+
[2017-01-30 09:46] LABS: HYPOCHROMASIA 1+; OVALOCYTES 1+
--- NOTE | 2017-01-30 10:25 | Diagnostic Imaging Report ---
Indication: Reason For Exam: WEAK Technique: One view of the chest Comparison: 04/30/2016 Findings: The heart is borderline enlarged. There is a left chest pacemaker. There is retrocardiac atelectasis. There may be a small left pleural effusion. There is equivocal borderline generalized interstitial congestion, appearing similar to the previous study Impression: Equivocal mild interstitial congestion Retrocardiac atelectasis Suspect small left pleural effusion
--- NOTE | 2017-01-30 10:35 | Diagnostic Imaging Report ---
Indication: Reason For Exam: FALL Technique: spiral acquisitions obtained through the brain. Angled axial and coronal 5 x 5 mm slices were reconstructed. No IV contrast utilized. Radiation dose was minimized using automated exposure control Total dose length product 1467 mGycm. CTDIvol(s) 70 mGy Comparison: 05/03/2016 FINDINGS: No acute hemorrhage or edema. No mass effect or midline shift. There is age-related enlargement of the ventricles and extra axial CSF spaces. There is periventricular deep white matter ischemic change. Normal aranda-white differentiation. Visualized orbits are unremarkable. There is minimal mucosal thickening of the bilateral ethmoid sinuses. Intact calvarium. There are old bilateral basal ganglia lacunar infarcts. One in the right posterior basal ganglia region appears new since prior exam, does not appear acute. No significant interim change otherwise IMPRESSION: Chronic and age-related changes. Negative for acute intracranial bleed or mass effect The CT scanner at [facility] is accredited by the [employer] and the scans are performed using protocols designed to limit radiation exposure to as low as reasonably achievable to attain images of sufficient resolution adequate for diagnostic evaluation
--- NOTE | 2017-01-30 10:45 | Diagnostic Imaging Report ---
Indication: Reason For Exam: FALL Technique: Spiral acquisitions obtained through the thoracic spine. No IV contrast utilized. Multiplanar reconstructions were generated. Total dose length product 1101.95 mGycm. CTDIvol(s) 32.81 mGy. Dose reduction achieved using automated exposure control Comparison: none Findings: In bony alignment is normal. Vertebral body heights are preserved. No acute fractures. There are anterior and lateral syndesmophytes. There is multilevel mild degenerative disc narrowing. No significant disc bulge or protrusion, spinal stenosis, or neural foraminal stenosis. Pacemaker wires are incidentally noted within the heart. There is a small to moderate left pleural effusion. There is trace right pleural fluid There is compressive atelectasis of portions of the left lower lobe. There is groundglass opacity within the upper lungs. Impression: No acute bony trauma Thoracic syndesmophytes, could represent sequela of ankylosing spondylitis versus more routine degenerative changes. Small to moderate left, trace right pleural effusions. Resultant parenchymal atelectatic changes Diffuse pulmonary parenchymal groundglass opacity, could reflect a component of pulmonary edema Other findings as noted, including pacemaker wires The CT scanner at [facility] is accredited by the [employer] and the scans are performed using protocols designed to limit radiation exposure to as low as reasonably achievable to attain images of sufficient resolution adequate for diagnostic evaluation.
--- NOTE | 2017-01-30 10:50 | Diagnostic Imaging Report ---
Indications: Reason For Exam: FALL Technique: Spiral acquisitions obtained through the lumbar spine. Multiplanar reconstructions were generated. No IV contrast utilized. Total dose length product 543.29 mGycm. CTDIvol(s) 20.4 mGy. Dose reduction achieved using automated exposure control Comparison: none Findings: Bony alignment is normal except for very mild anterior offset of L5 on S1. Vertebral body heights are preserved. There is multilevel degenerative disc narrowing with vacuum formation. There are upper lumbar lateral syndesmophytes. No acute fractures. No dislocations. Posterior osteophytes results in borderline narrowing the spinal canal at L4-5. There is mild narrowing of the left neural foramen at this level, predominantly due to facet hypertrophy. At the remaining disc levels, no significant disc bulge or protrusion, spinal stenosis, or neural foraminal stenosis. Numerous surgical clips are seen within the pelvic and retroperitoneal soft tissues, likely indicating prior node dissection. Impression: No acute bony trauma Degenerative changes, as described Evidence of prior thoracic node dissection The CT scanner at [facility] is accredited by the [employer] and the scans are performed using protocols designed to limit radiation exposure to as low as reasonably achievable to attain images of sufficient resolution adequate for diagnostic evaluation.
[2017-01-30 12:00] VITALS: BP 148/82
--- NOTE | 2017-01-30 15:16 | Diagnostic Imaging Report ---
Indication: Reason For Exam: PAIN Technique: 3 views left foot Comparison: none Findings: There is mild hallux valgus and metatarsus adductus. Mild degenerative changes of the first metatarsophalangeal joint are noted. Degenerative changes of the second through fifth distal interphalangeal joints are also noted. No acute fractures. No dislocations. There are plantar and calcaneal spurs. There is mild hammertoe deformity of the second through fifth digits Impression: No acute bony trauma. Findings as noted
--- NOTE | 2017-01-30 15:17 | Diagnostic Imaging Report ---
Indication: Reason For Exam: PAIN Technique: 3 views foot Comparison: none Findings: No acute fractures. No dislocations. Mild degenerative changes of the second through fifth digits noted. The joint spaces are preserved. There are small plantar and calcaneal spurs Impression: No acute process
[2017-01-30 16:00] VITALS: BP 124/75
[2017-01-30] MEDS ORDERED: Metoprolol 5mg/5ml Inj IVP PRN ×2 (20:00→22:00)
[2017-01-30 20:52] VITALS: BP 108/83
--- NOTE | 2017-01-30 21:01 | Cardiology Progress Note ---
Assessment/Plan Assessment/Plan The patient is seen and examined, full consult note is dictated. Objective Last 24 Hour Vital Signs Date Time Temp Pulse Resp B/P (MAP) Pulse Ox O2 Delivery O2 Flow Rate FiO2 01/30/17 20:52 97.9 83 18 108/83 94 Room Air 01/30/17 20:51 116 110/77 01/30/17 20:18 126 110/64 01/30/17 17:34 135 01/30/17 17:20 124/75 01/30/17 16:00 96.1 77 18 124/75 93 Room Air 01/30/17 12:00 97.5 70 18 148/82 92 Room Air 01/30/17 11:45 67 01/30/17 09:26 74 152/76 01/30/17 09:26 152/76 01/30/17 08:28 98.2 74 18 152/76 92 Room Air 01/30/17 07:43 74 01/30/17 04:30 98.4 72 20 128/67 94 Room Air 01/30/17 04:00 73 01/30/17 00:20 98.4 61 20 134/69 95 Room Air 01/30/17 00:00 62 Intake and Output 01/29/17 01/30/17 19:00 07:00 Intake Total 500 ml 240 ml Balance 500 ml 240 ml Intake Oral 0 ml 240 ml IV Total 500 ml # Voids 5 Laboratory Tests Test 01/30/17 08:05 White Blood Count 11.9 K/UL (4.8-10.8) H Red Blood Count 4.71 M/UL (4.20-5.40) Hemoglobin 13.2 G/DL (12.0-16.0) Hematocrit 44.4 % (37.0-47.0) Mean Corpuscular Volume 94 FL (80-99) Mean Corpuscular Hemoglobin 28.0 PG (27.0-31.0) Mean Corpuscular Hemoglobin Concent 29.7 G/DL (32.0-36.0) L Red Cell Distribution Width 21.3 % (11.6-14.8) H Platelet Count 256 K/UL (150-450) Mean Platelet Volume 9.6 FL (6.5-10.1) Neutrophils (%) (Auto) % (45.0-75.0) Lymphocytes (%) (Auto) % (20.0-45.0) Monocytes (%) (Auto) % (1.0-10.0) Eosinophils (%) (Auto) % (0.0-3.0) Basophils (%) (Auto) % (0.0-2.0) Differential Total Cells Counted 100 Neutrophils % (Manual) 87 % (45-75) H Lymphocytes % (Manual) 8 % (20-45) L Monocytes % (Manual) 2 % (1-10) Eosinophils % (Manual) 1 % (0-3) Basophils % (Manual) 0 % (0-2) Band Neutrophils 2 % (0-8) Platelet Estimate Adequate Platelet Morphology Normal Polychromasia 1+ Hypochromasia 1+ Poikilocytosis 1+ Anisocytosis 2+ Ovalocytes 1+ Sodium Level 142 MMOL/L (136-145) Potassium Level 3.8 MMOL/L (3.5-5.1) Chloride Level 107 MMOL/L (98-107) Carbon Dioxide Level 27 MMOL/L (21-32) Anion Gap 8 mmol/L (5-15) Blood Urea Nitrogen 12 mg/dL (7-18) Creatinine 0.7 MG/DL (0.55-1.30) Estimat Glomerular Filtration Rate mL/min (>60) Glucose Level 120 MG/DL (74-106) H Calcium Level 8.3 MG/DL (8.5-10.1) L Phosphorus Level 3.0 MG/DL (2.5-4.9) Magnesium Level 1.9 MG/DL (1.8-2.4) Total Bilirubin 0.9 MG/DL (0.2-1.0) Aspartate Amino Transf (AST/SGOT) 20 U/L (15-37) Alanine Aminotransferase (ALT/SGPT) 18 U/L (12-78) Alkaline Phosphatase 92 U/L (46-116) Troponin I 0.000 ng/mL (0.000-0.056) Pro-B-Type Natriuretic Peptide 4285 pg/mL (0-125) H Total Protein 6.0 G/DL (6.4-8.2) L Albumin 2.5 G/DL (3.4-5.0) L Globulin 3.5 g/dL Albumin/Globulin Ratio 0.7 (1.0-2.7) L SHAUN MORALES Jan 30, 2017 21:01
[2017-01-30] MEDS ORDERED: Metoprolol 5mg/5ml Inj IVP SCH (21:15)
[2017-01-30] MEDS ORDERED: Digoxin 0.5mg/2ml Inj IVP ONE (21:25)
--- NOTE | 2017-01-30 23:13 | Internal Med Progress Note ---
Subjective Physician Name Antonio Adrian Attending Physician Antonio Adrian MD Current Medications Medications (Trade) Dose Ordered Sig/Escobar Route PRN Reason Start Time Stop Time Status Last Admin Dose Admin Amiodarone HCl (Cordarone) 200 mg DAILY ORAL 01/30/17 09:00 03/01/17 08:59 01/30/17 09:24 Calcium Carbonate (Os-Zeb) 1,250 mg DAILY ORAL 01/30/17 09:00 03/01/17 08:59 01/30/17 09:24 Ceftriaxone Sodium 1 gm/ Sodium Chloride 55 ml @ 110 mls/hr DAILY IVPB 01/30/17 09:00 02/06/17 08:59 01/30/17 09:28 Clonidine HCl (Catapres) 0.1 mg Q8H PRN ORAL SBP > 170mmHg 01/29/17 12:15 02/28/17 12:14 Dabigatran (Pradaxa) 150 mg EVERY 12 HOURS ORAL 01/29/17 21:00 02/28/17 20:59 01/30/17 20:52 Dextrose (Dextrose 50%) STAT PRN IV Hypoglycemia 01/29/17 12:00 02/28/17 11:59 Diphenhydramine HCl (Benadryl) 25 mg DAILYPRN PRN ORAL ITCHING 01/29/17 13:00 02/28/17 12:59 Furosemide (Lasix) 40 mg DAILY ORAL 01/30/17 09:00 03/01/17 08:59 01/30/17 09:25 Gabapentin (Neurontin) 400 mg Q8HR ORAL 01/29/17 14:00 02/28/17 13:59 01/30/17 21:38 Hydroxyurea (Hydrea) 500 mg DAILY ORAL 01/30/17 09:00 02/04/17 08:59 01/30/17 09:25 Insulin Aspart (NovoLOG) BEFORE MEALS AND HS SUBQ 01/29/17 16:30 02/28/17 16:29 01/30/17 20:54 Lisinopril (Prinivil) 20 mg BID ORAL 01/29/17 18:00 02/28/17 17:59 01/30/17 17:20 Metoprolol Tartrate (Lopressor) 5 mg Q5MIN X 2 PRN IVP HR > 90, MAX OF 2 DOSES 01/30/17 22:00 01/30/17 23:59 Metoprolol Tartrate (Lopressor) 100 mg Q12HR ORAL 01/30/17 21:00 03/01/17 20:59 01/30/17 20:51 Potassium Chloride (K-Dur) 20 meq DAILY ORAL 01/30/17 09:00 03/01/17 08:59 01/30/17 09:25 Thiamine HCl (Vitamin B1) 100 mg DAILY ORAL 01/30/17 09:00 03/01/17 08:59 01/30/17 09:25 Allergies: Coded Allergies: No Known Allergies (Unverified , 04/30/16) Subjective awake, alert, responsive, No CP or SOB, C/O LE's weakness Objective Last Vital Signs Date Time Temp Pulse Resp B/P (MAP) Pulse Ox O2 Delivery O2 Flow Rate FiO2 01/30/17 21:41 115 01/30/17 20:52 97.9 18 108/83 94 Room Air Laboratory Tests Test 01/30/17 08:05 White Blood Count 11.9 K/UL (4.8-10.8) H Red Blood Count 4.71 M/UL (4.20-5.40) Hemoglobin 13.2 G/DL (12.0-16.0) Hematocrit 44.4 % (37.0-47.0) Mean Corpuscular Volume 94 FL (80-99) Mean Corpuscular Hemoglobin 28.0 PG (27.0-31.0) Mean Corpuscular Hemoglobin Concent 29.7 G/DL (32.0-36.0) L Red Cell Distribution Width 21.3 % (11.6-14.8) H Platelet Count 256 K/UL (150-450) Mean Platelet Volume 9.6 FL (6.5-10.1) Neutrophils (%) (Auto) % (45.0-75.0) Lymphocytes (%) (Auto) % (20.0-45.0) Monocytes (%) (Auto) % (1.0-10.0) Eosinophils (%) (Auto) % (0.0-3.0) Basophils (%) (Auto) % (0.0-2.0) Differential Total Cells Counted 100 Neutrophils % (Manual) 87 % (45-75) H Lymphocytes % (Manual) 8 % (20-45) L Monocytes % (Manual) 2 % (1-10) Eosinophils % (Manual) 1 % (0-3) Basophils % (Manual) 0 % (0-2) Band Neutrophils 2 % (0-8) Platelet Estimate Adequate Platelet Morphology Normal Polychromasia 1+ Hypochromasia 1+ Poikilocytosis 1+ Anisocytosis 2+ Ovalocytes 1+ Sodium Level 142 MMOL/L (136-145) Potassium Level 3.8 MMOL/L (3.5-5.1) Chloride Level 107 MMOL/L (98-107) Carbon Dioxide Level 27 MMOL/L (21-32) Anion Gap 8 mmol/L (5-15) Blood Urea Nitrogen 12 mg/dL (7-18) Creatinine 0.7 MG/DL (0.55-1.30) Estimat Glomerular Filtration Rate mL/min (>60) Glucose Level 120 MG/DL (74-106) H Calcium Level 8.3 MG/DL (8.5-10.1) L Phosphorus Level 3.0 MG/DL (2.5-4.9) Magnesium Level 1.9 MG/DL (1.8-2.4) Total Bilirubin 0.9 MG/DL (0.2-1.0) Aspartate Amino Transf (AST/SGOT) 20 U/L (15-37) Alanine Aminotransferase (ALT/SGPT) 18 U/L (12-78) Alkaline Phosphatase 92 U/L (46-116) Troponin I 0.000 ng/mL (0.000-0.056) Pro-B-Type Natriuretic Peptide 4285 pg/mL (0-125) H Total Protein 6.0 G/DL (6.4-8.2) L Albumin 2.5 G/DL (3.4-5.0) L Globulin 3.5 g/dL Albumin/Globulin Ratio 0.7 (1.0-2.7) L Intake and Output 01/29/17 01/30/17 19:00 07:00 Intake Total 500 ml 240 ml Balance 500 ml 240 ml Intake Oral 0 ml 240 ml IV Total 500 ml # Voids 5 Objective General: No acute distress, awake and alert HEENT: NCAT, sclera anicteric, PERRL, EOMI. Neck: Supple, no significant jugular venous distention, Lungs: Good inspiratory effort, clear to auscultation bilaterally, no Wheeze or Rales. Heart: Regular rate and rhythm, normal S1/S2, no murmurs, PPM @ LCW. Abdomen: soft, nontender, nondistended. Normoactive bowel sounds. / Rectal: Refused and deferred. Extremities: No Cyanosis , clubbing or edema. Neuro: A&O x 3, Able to move all extremities Skin: warm, no rashes or lesions Psych: Normal mood and affect Assessment/Plan Assessment/Plan 1. Chest pain possible ACS 2. Generalized weakness. 3. Bilateral LE's pain. 4. Chronic Atrial fibrillation. 5. Polycythemia vera. 6. Hypertension. 7. Chronic obstructive sleep apnea. 8. Coronary artery disease, status post myocardial infarction. 9. Hypercholesteremia. 10. Congestive heart failure. Plan: Monitor Labs PT Mobility F/U with cardiology Recommendation. Full code. DC Planning in 1 or 2 days DVT Prophylax: Paradoxa Abx: Rocephin. Antonio Adrian MD Jan 30, 2017 23:13
[2017-01-31 00:57] VITALS: BP 133/77
[2017-01-31 04:45] VITALS: BP 120/69
[2017-01-31] MEDS: NovoLOG Insulin Flexpen SUBQ SCH ×4 (06:26→21:00)
[2017-01-31 08:00] VITALS: BP 132/70
[2017-01-31 12:00] VITALS: BP 131/92
[2017-01-31] MEDS: Amiodarone 200mg tab ORAL SCH (12:56)
[2017-01-31] MEDS: Lisinopril 20mg tab ORAL SCH ×2 (12:56→18:44)
[2017-01-31] MEDS: Thiamine 100mg tab ORAL SCH (12:57)
[2017-01-31] MEDS: Furosemide 40mg tab ORAL SCH (12:57)
[2017-01-31] MEDS: Hydroxyurea 500mg cap ORAL SCH (12:58)
[2017-01-31] MEDS: Dabigatran 150mg cap ORAL SCH ×2 (12:58→22:02)
[2017-01-31] MEDS: cefTRIAXone 1 GM in NS 55 ML IVPB SCH (12:59)
--- NOTE | 2017-01-31 13:45 | Consultation ---
DATE OF CONSULTATION: 01/30/2017 CARDIOLOGY CONSULTATION CONSULTING PHYSICIAN: River Pandya M.D. REFERRING PHYSICIAN: Antonio Adrian M.D. REASON FOR CONSULTATION: Management of atrial fibrillation. HISTORY OF PRESENT ILLNESS: The patient is a very unfortunate 76-year-old female, who presents to the emergency department with generalized weakness, feeling unsteady. She has had multiple falls. On arrival to the emergency department, she denied any chest pain or shortness of breath. However, when questioned about palpitation, she admitted to having palpitation every now and then. Initial 12-lead electrocardiogram in the emergency department showed sinus rhythm. However, after she was admitted to telemetry, she was found to be in atrial fibrillation with rapid ventricular response with heart rate as high as 140. The patient has history of paroxysmal atrial fibrillation and on Pradaxa 150 mg twice daily. The patient also on amiodarone 200 mg daily as well as metoprolol in an outpatient setting. PAST MEDICAL HISTORY: 1. Hypertension. 2. History of paroxysmal atrial fibrillation. 3. History of CVA/TIA. 4. History of dual-chamber pacemaker due to sick sinus syndrome. PAST SURGICAL HISTORY: Dual-chamber pacemaker implantation. MEDICATIONS: List of medication, amiodarone 200 mg p.o. daily, calcium carbonate 500 mg p.o. daily, capsaicin one application twice daily, Catapres 0.1 mg q.8 hours. p.r.n. systolic blood pressure above 170, Pradaxa 150 mg p.o. twice daily, Banophen 25 mg p.o. daily, Lasix 40 mg p.o. daily, gabapentin 400 mg p.o. three times daily, hydroxyurea 500 mg p.o. daily, lisinopril 20 mg p.o. twice daily, metoprolol 50 mg p.o. q.12 hours, potassium chloride 20 mEq p.o. daily, and thiamine 100 mg p.o. daily. SOCIAL HISTORY: Denies any tobacco, alcohol, or illicit drug use. FAMILY HISTORY: No premature coronary artery disease in first-degree relatives. REVIEW OF SYSTEMS: HEENT: Denies any headache, diplopia, or blurred vision. CONSTITUTIONAL: Complaining of generalized weakness. No fever, chills, or night sweats. CARDIOVASCULAR: Denies any chest pain, shortness breath, PND, orthopnea, leg swelling, or syncope. PULMONARY: Denies any cough, hemoptysis, or wheezing. GASTROINTESTINAL: Denies any nausea, vomiting, diarrhea, constipation, abdominal pain, or GI bleed. GENITOURINARY: Denies any hematuria, dysuria, or incontinence. NEUROLOGY: Denies any motor dysfunction, sensory deficit, or altered speech at this time. History of CVA in the past. PHYSICAL EXAMINATION: VITAL SIGNS: Blood pressure was 154/82, respirations of 18, pulse of 75, pulse oximetry of 96% on room air, and temperature 98.8 degrees Fahrenheit. GENERAL: The patient is a very anxious looking 76-year-old female, in no apparent respiratory distress. Alert and oriented x4. HEENT: Atraumatic and normocephalic. Anicteric. Pupils are equal, round, and reactive to light and accommodation. Extraocular muscles intact. NECK: JVP is less than 5 cm. No carotid bruit. Carotid upstrokes 2+ bilaterally. CARDIOVASCULAR: Normal S1, S2. Irregularly irregular rhythm. At this time, a 2/6 mid systolic murmur in the left sternal border. PMI is at fourth intercostal space in the midclavicular line. LUNGS: Clear to auscultation bilaterally. ABDOMEN: Soft, nontender, and nondistended. No hepatosplenomegaly. Positive bowel sounds. The chest wall shows the presence of a pacemaker in the left pectoral area. EXTREMITIES: No evidence of edema, clubbing, or cyanosis. DIAGNOSTIC DATA: A 12-lead electrocardiogram obtained in the emergency department shows sinus rhythm. No acute ischemic changes. Chest x-ray shows dual-chamber pacemaker in place, small left pleural effusion, mild interstitial congestion. LABORATORY FINDINGS: WBC of 11.9, hemoglobin of 14.7, hematocrit of 48.7, and platelet count is 248,000. Sodium is 137, potassium is 4.4, chloride 103, bicarbonate 29, BUN of 13, creatinine 0.7, glucose is 114, and calcium is 9.0. ProBNP was 2663. ASSESSMENT AND PLAN: The patient is a very unfortunate 76-year-old female, seen in Cardiology consultation at request of Dr. Adrian. 1. Paroxysmal atrial fibrillation. The patient is in atrial fibrillation despite being on amiodarone and metoprolol. I have instructed the nurse to give metoprolol 5 mg IV injections x3 dose every 5 minutes if the heart rate remains to be more than 90. We will increase the metoprolol p.o. mg twice daily. The patient is currently asymptomatic. We will continue with conservative management. The patient is already on Pradaxa 150 mg twice daily for prevention of thromboembolic events. 2. A 2D echocardiography order is in place. Further evaluation and diagnostic decision will be based on the patient's response to the above therapy. 3. Dual-chamber pacemaker implantation, appears to be functioning normally. Currently, it is the patient's intrinsic atrial fibrillation rhythm in place. 4. Generalized weakness. It could be secondary to episodes of atrial fibrillation and lack of atrial kick. I would like to thank, Dr. Adrian, for the courtesy of this consultation. River Pandya M.D. DR: MORTEZA JOB#: [id number] CC:
--- NOTE | 2017-01-31 15:15 | Internal Med Progress Note ---
Subjective Physician Name Antonio Adrian Attending Physician Antonio Adrian MD Current Medications Medications (Trade) Dose Ordered Sig/Escobar Route PRN Reason Start Time Stop Time Status Last Admin Dose Admin Amiodarone HCl (Cordarone) 200 mg DAILY ORAL 01/30/17 09:00 03/01/17 08:59 01/31/17 12:56 Calcium Carbonate (Os-Zeb) 1,250 mg DAILY ORAL 01/30/17 09:00 03/01/17 08:59 01/31/17 12:55 Ceftriaxone Sodium 1 gm/ Sodium Chloride 55 ml @ 110 mls/hr DAILY IVPB 01/30/17 09:00 02/06/17 08:59 01/31/17 12:59 Clonidine HCl (Catapres) 0.1 mg Q8H PRN ORAL SBP > 170mmHg 01/29/17 12:15 02/28/17 12:14 Dabigatran (Pradaxa) 150 mg EVERY 12 HOURS ORAL 01/29/17 21:00 02/28/17 20:59 01/31/17 12:58 Dextrose (Dextrose 50%) STAT PRN IV Hypoglycemia 01/29/17 12:00 02/28/17 11:59 Diphenhydramine HCl (Benadryl) 25 mg DAILYPRN PRN ORAL ITCHING 01/29/17 13:00 02/28/17 12:59 Furosemide (Lasix) 40 mg DAILY ORAL 01/30/17 09:00 03/01/17 08:59 01/31/17 12:57 Gabapentin (Neurontin) 400 mg Q8HR ORAL 01/29/17 14:00 02/28/17 13:59 01/31/17 05:56 Hydroxyurea (Hydrea) 500 mg DAILY ORAL 01/30/17 09:00 02/04/17 08:59 01/31/17 12:58 Insulin Aspart (NovoLOG) BEFORE MEALS AND HS SUBQ 01/29/17 16:30 02/28/17 16:29 01/30/17 20:54 Lisinopril (Prinivil) 20 mg BID ORAL 01/29/17 18:00 02/28/17 17:59 01/31/17 12:56 Metoprolol Tartrate (Lopressor) 100 mg Q12HR ORAL 01/30/17 21:00 03/01/17 20:59 01/31/17 12:56 Potassium Chloride (K-Dur) 20 meq DAILY ORAL 01/30/17 09:00 03/01/17 08:59 01/31/17 12:58 Thiamine HCl (Vitamin B1) 100 mg DAILY ORAL 01/30/17 09:00 03/01/17 08:59 01/31/17 12:57 Allergies: Coded Allergies: No Known Allergies (Unverified , 04/30/16) Subjective awake, alert, responsive, No CP or SOB, C/O less LE's weakness, feeling better Objective Last Vital Signs Date Time Temp Pulse Resp B/P (MAP) Pulse Ox O2 Delivery O2 Flow Rate FiO2 01/31/17 12:56 117 131/92 01/31/17 12:00 97.7 19 94 Room Air Intake and Output 01/30/17 01/31/17 19:00 07:00 Intake Total 775 ml 240 ml Output Total 300 ml Balance 775 ml -60 ml Intake Oral 720 ml 240 ml IV Total 55 ml Output Urine Total 300 ml # Voids 4 # Bowel Movements 2 Objective General: No acute distress, awake and alert HEENT: NCAT, sclera anicteric, PERRL, EOMI. Neck: Supple, no significant jugular venous distention, Lungs: Good inspiratory effort, clear to auscultation bilaterally, no Wheeze or Rales. Heart: Regular rate and rhythm, normal S1/S2, no murmurs, PPM @ LCW. Abdomen: soft, nontender, nondistended. Normoactive bowel sounds. / Rectal: Refused and deferred. Extremities: No Cyanosis , clubbing or edema. Neuro: A&O x 3, Able to move all extremities Skin: warm, no rashes or lesions Psych: Normal mood and affect Assessment/Plan Assessment/Plan 1. Chest pain possible ACS 2. Generalized weakness. 3. Bilateral LE's pain. 4. Chronic Atrial fibrillation. 5. Polycythemia vera. 6. Hypertension. 7. Chronic obstructive sleep apnea. 8. Coronary artery disease, status post myocardial infarction. 9. Hypercholesteremia. 10. Congestive heart failure. Plan: Monitor Labs and cultures PT Mobility F/U with cardiology Recommendation. Full code. DC Planning in AM DVT Prophylax: Paradoxa Abx: Rocephin. Antonio Adrian MD Jan 31, 2017 15:15
[2017-01-31 16:00] VITALS: BP_SYST 122; BP_SYST 132; BP_DIAS 69; BP_DIAS 70
--- NOTE | 2017-01-31 16:08 | Consultation ---
Consult Note Assessment/Plan Podiatry consult dictated A/ Peripheral Neuropathy P/ Consider increase dose of neurontin vs weaning off and beginning Lyrica May benefit from neurology consult to identify source of neuropathy as outpatient. Will follow as outpatient Thank you Dr Edwards. Louie Fam DPM Jan 31, 2017 16:08
[2017-01-31 20:52] VITALS: BP 134/68
--- NOTE | 2017-01-31 22:15 | Consultation ---
DATE OF CONSULTATION: 01/31/2017 REQUESTING PHYSICIAN: Roshan Edwards M.D. CONSULTING PHYSICIAN: Louie Fam D.P.M. REASON FOR CONSULTATION: Pain in bilateral feet. HISTORY OF PRESENT ILLNESS: The patient is a 76-year-old female who was admitted to [facility] on 01/29/2017 for weakness and frequent falls. The patient states that she has pain in both feet on the soles of each foot and has had it for some time now. She states that it is a burning sensation and she feels mostly at night when sleeping and awakens her. The patient states that she is being discharged to home tomorrow. She does ambulate with a cane and states that at times the burning prevents her from walking. PAST MEDICAL HISTORY: Significant for atrial fibrillation, polycythemia vera, hypertension, obstructive sleep apnea, coronary artery disease, status post [place], hypercholesterolemia, and congestive heart failure. PAST SURGICAL HISTORY: Significant for pacemaker and total abdominal hysterectomy. MEDICATIONS: Per MAR and include ceftriaxone and 400 mg of gabapentin q.8 h. ALLERGIES: She has no known allergies. SOCIAL HISTORY: Noncontributory. FAMILY HISTORY: Noncontributory. REVIEW OF SYSTEMS: HEENT: The patient currently denies any headaches, blurred vision, or ringing in the ears. CARDIORESPIRATORY: The patient denies any chest pain or shortness of breath. GENITOURINARY: The patient denies any urgency, frequency, burning upon urination, or hematuria. GASTROINTESTINAL: The patient denies any constipation, diarrhea, or blood in the stool. PHYSICAL EXAMINATION: VITAL SIGNS: Temperature is 97.7, pulse is 117, blood pressure is 131/92, and saturating 94% on room air. EXTREMITIES: Lower extremity physical exam, vascular 2+ palpable dorsalis pedis and posterior tibial arteries noted bilaterally. Feet are equally warm. There is no edema or cyanosis noted bilateral. DERMATOLOGICAL: There is no open sores or lesions noted. Interdigital spaces are clear bilaterally. NEUROLOGICAL: Protective threshold is normal. Achilles deep tendon reflexes are 2+ bilateral. There is no spasticity noted. MUSCULOSKELETAL: There is 4/5 muscle strength noted in anterolateral and posterior muscle groups of bilateral lower extremities. No gross deformities are noted. The patient ambulates with a cane. LABORATORY AND DIAGNOSTIC DATA: White blood cell count of 11.3, hemoglobin and hematocrit is 13.2 and 44.4, and platelet count is 256,000. Potassium 3.8, BUN is 12, creatinine is 0.7, hemoglobin A1c is 5.2, and glucose is 120. Albumin is 2.5. Lower extremity imaging, bilateral foot x-rays performed on this admission shows left foot mild hallux valgus, degenerative changes of the first metatarsophalangeal joint are noted. Degenerative changes of the second through fifth digital interphalangeal joints are also noted. There are plantar calcaneal spurs. Hammertoe deformities are noted, but no acute findings. X-ray of the right foot shows mild degenerate changes of the second through fifth digits. Small plantar calcaneal spurs are noted, but no acute processes identified. ASSESSMENT: Peripheral neuropathy. PLAN: 1. The patient is currently on 400 mg q.8 h. of gabapentin. Recommend tapering this dose and beginning Lyrica at the same time. 2. May benefit from a Neurology consult and identify the source of neuropathy. This could be performed as an outpatient. 3. We will follow as an outpatient. Thank you for the courtesy of this consultation, Dr. Edwards. Louie Fam D.P.M. DR: Lucita JOB#: [id number] CC:
[2017-02-01 00:45] VITALS: BP 128/59
[2017-02-01 04:47] VITALS: BP 116/61
[2017-02-01] MEDS: NovoLOG Insulin Flexpen SUBQ SCH ×2 (06:30→11:30)
[2017-02-01 08:00] VITALS: BP_SYST 152; BP_SYST 52; BP_DIAS 81
[2017-02-01] MEDS: Amiodarone 200mg tab ORAL SCH (08:32)
[2017-02-01] MEDS: Thiamine 100mg tab ORAL SCH (08:40)
[2017-02-01] MEDS: Hydroxyurea 500mg cap ORAL SCH (08:40)
[2017-02-01] MEDS: Dabigatran 150mg cap ORAL SCH (08:40)
[2017-02-01 08:41] VITALS: BP 152/81
[2017-02-01] MEDS: Furosemide 40mg tab ORAL SCH (08:41)
[2017-02-01] MEDS: Lisinopril 20mg tab ORAL SCH (08:41)
[2017-02-01] MEDS: cefTRIAXone 1 GM in NS 55 ML IVPB SCH (08:41)
--- NOTE | 2017-02-01 14:19 | Internal Med Progress Note ---
Subjective Physician Name Antonio Adrian Attending Physician Antonio Adrian MD Current Medications Medications (Trade) Dose Ordered Sig/Escobar Route PRN Reason Start Time Stop Time Status Last Admin Dose Admin Amiodarone HCl (Cordarone) 200 mg DAILY ORAL 01/30/17 09:00 03/01/17 08:59 02/01/17 08:32 Calcium Carbonate (Os-Zeb) 1,250 mg DAILY ORAL 01/30/17 09:00 03/01/17 08:59 02/01/17 08:40 Ceftriaxone Sodium 1 gm/ Sodium Chloride 55 ml @ 110 mls/hr DAILY IVPB 01/30/17 09:00 02/06/17 08:59 02/01/17 08:41 Clonidine HCl (Catapres) 0.1 mg Q8H PRN ORAL SBP > 170mmHg 01/29/17 12:15 02/28/17 12:14 Dabigatran (Pradaxa) 150 mg EVERY 12 HOURS ORAL 01/29/17 21:00 02/28/17 20:59 02/01/17 08:40 Dextrose (Dextrose 50%) STAT PRN IV Hypoglycemia 01/29/17 12:00 02/28/17 11:59 Diphenhydramine HCl (Benadryl) 25 mg DAILYPRN PRN ORAL ITCHING 01/29/17 13:00 02/28/17 12:59 Furosemide (Lasix) 40 mg DAILY ORAL 01/30/17 09:00 03/01/17 08:59 02/01/17 08:41 Gabapentin (Neurontin) 400 mg Q8HR ORAL 01/29/17 14:00 02/28/17 13:59 02/01/17 06:20 Hydroxyurea (Hydrea) 500 mg DAILY ORAL 01/30/17 09:00 02/04/17 08:59 02/01/17 08:40 Insulin Aspart (NovoLOG) BEFORE MEALS AND HS SUBQ 01/29/17 16:30 02/28/17 16:29 01/30/17 20:54 Lisinopril (Prinivil) 20 mg BID ORAL 01/29/17 18:00 02/28/17 17:59 02/01/17 08:41 Metoprolol Tartrate (Lopressor) 100 mg Q12HR ORAL 01/30/17 21:00 03/01/17 20:59 02/01/17 08:40 Potassium Chloride (K-Dur) 20 meq DAILY ORAL 01/30/17 09:00 03/01/17 08:59 02/01/17 08:40 Thiamine HCl (Vitamin B1) 100 mg DAILY ORAL 01/30/17 09:00 03/01/17 08:59 02/01/17 08:40 Allergies: Coded Allergies: No Known Allergies (Unverified , 04/30/16) Subjective awake, alert, responsive, No CP or SOB, LE's weakness improving, feeling better Objective Last Vital Signs Date Time Temp Pulse Resp B/P (MAP) Pulse Ox O2 Delivery O2 Flow Rate FiO2 02/01/17 08:41 152/81 02/01/17 08:40 62 02/01/17 08:00 97.3 18 95 Room Air Intake and Output 01/31/17 02/01/17 19:00 07:00 Intake Total 655 ml Output Total 400 ml Balance 655 ml -400 ml Intake Oral 600 ml IV Total 55 ml Output Urine Total 400 ml # Voids 3 # Bowel Movements 3 Objective General: No acute distress, awake and alert HEENT: NCAT, sclera anicteric, PERRL, EOMI. Neck: Supple, no significant jugular venous distention, Lungs: Good inspiratory effort, clear to auscultation bilaterally, no Wheeze or Rales. Heart: Regular rate and rhythm, normal S1/S2, no murmurs, PPM @ LCW. Abdomen: soft, nontender, nondistended. Normoactive bowel sounds. / Rectal: Refused and deferred. Extremities: No Cyanosis , clubbing or edema. Neuro: A&O x 3, Able to move all extremities Skin: warm, no rashes or lesions Psych: Normal mood and affect Assessment/Plan Assessment/Plan 1. Chest pain possible ACS 2. Generalized weakness. 3. Bilateral LE's pain. 4. Chronic Atrial fibrillation. 5. Polycythemia vera. 6. Hypertension. 7. Chronic obstructive sleep apnea. 8. Coronary artery disease, status post myocardial infarction. 9. Hypercholesteremia. 10. Congestive heart failure. Plan: Monitor Labs and cultures PT Mobility F/U with cardiology Recommendation. Full code. DC Planning today DVT Prophylax: Paradoxa Abx: Rocephin. Antonio Adrian MD Feb 01, 2017 14:19
[2017-02-01] MEDS ORDERED: NS 500ML ONE (14:59)
[2017-02-01] MEDS ORDERED: NS 275ml ONE (14:59)
[2017-02-01] MEDS ORDERED: Tubing IV Secondary IV ONE (14:59)
--- NOTE | 2017-02-02 03:30 | Consultation ---
DATE OF CONSULTATION: 01/30/2017 CONSULTING PHYSICIAN: Taran Shaffer M.D. HISTORY OF PRESENT ILLNESS: The patient presents with general anxiety, chest pain, and general weakness. The patient states she is unable to walk. Has been treated with antianxiety medication in the past. PAST PSYCHIATRIC HISTORY: She has a history of anxiety disorder. No psychiatric history. No suicide attempt in the past. PAST MEDICAL HISTORY: Includes UTI, headaches, epigastric abdominal pain, multiple sprains, and pyelonephritis. MENTAL STATUS EXAMINATION: The patient is alert and oriented to times self, place, and situation she is in. Mood is anxious. Affect is constricted. Congruent with mood. Thought process is concrete. Thought content, no suicidal or homicidal ideations. ASSESSMENT: AXIS I Anxiety disorder. AXIS II Deferred. AXIS III As above. AXIS IV Low. AXIS V Global assessment of functioning is 20. PLAN: 1. The patient will be continued on current medication. 2. Provide the patient with supportive therapy and reality orientation. Taran Shaffer M.D. DR: DOROTEO JOB#: [id number] CC:
--- NOTE | 2017-02-05 21:50 | Discharge Summary ---
Discharge Summary Hospital Course Date of Admission Jan 29, 2017 at 08:38 Date of Discharge Feb 01, 2017 at 15:00 Admitting Diagnosis weakness, frequent falls HPI Dasha Pascal is a 76 year old female who was admitted on Jan 29, 2017 at 08:38 for Weakness,Frequent Falls Hospital Course dc summary #[id number] Discharge Medications Continued Medications: Amiodarone Hcl* (Cordarone*) 200 Mg Tablet 200 MG ORAL DAILY, TAB Calcium Carbonate ([id number]) 500 Mg Tablet 500 MG PO DAILY Capsaicin (Capsaicin) 42.5 Gm Cream..g. 1 APPLIC TP BID for For Pain, #42.5 GM Clonidine Hcl* (Catapres*) 0.1 Mg Tablet 0.1 MG ORAL EVERY 8 HOURS PRN for SBP >170, TAB Dabigatran Etexilate Mesylate* (Pradaxa*) 150 Mg Capsule 150 MG PO Q12H, #20 CAP Take 1 capsule by mouth every 12 hours. Diphenhydramine Hcl (Banophen) 25 Mg Capsule 25 MG PO DAILY, CAP Furosemide* (Lasix*) 40 Mg Tablet 40 MG ORAL DAILY, TAB Gabapentin (Neurontin) 300 Mg Capsule 400 MG ORAL THREE TIMES A DAY for 30 Days, CAP Gabapentin* (Gabapentin*) 100 Mg Capsule 100 MG ORAL QAM AND 300MG PO QHS, CAP Hydroxyurea* (Hydrea*) 500 Mg Cap 500 MG ORAL DAILY for 30 Days, CAP Lisinopril* (Zestril*) 20 Mg Tablet 20 MG ORAL BID, TAB Metoprolol Tartrate* (Metoprolol Tartrate*) 50 Mg Tablet 50 MG ORAL EVERY 12 HOURS, TAB Potassium Chloride (Potassium Chloride) 10 Meq Tablet.er 20 MEQ ORAL DAILY, #30 TAB 0 Refills Thiamine Hcl (Vitamin B1*) 100 Mg Tablet 100 MG ORAL DAILY, TAB Discharge Condition Upon Discharge: stable Discharge Disposition Patient was discharged to Home with Home Health(06) Discharge Diagnoses: Discharge Instructions Discharge Instructions Special Instructions I have been assigned to complete a D/C Summary on this account. I was not involved in the patient management Cait Melchor NP (Vanchtein) Feb 05, 2017 21:50
--- NOTE | 2017-02-07 11:30 | Discharge Summary 2 SIG ---
DATE OF ADMISSION: 01/29/2017 DATE OF DISCHARGE: 02/01/2017 REASON FOR ADMISSION: 76-year-old female with a history of hypertension, obstructive sleep apnea, paroxysmal atrial fibrillation, coronary artery disease, status post [place], congestive heart failure, hypercholesteremia, and history of dual-chamber pacemaker secondary to sick sinus syndrome, presented to emergency department with complaint of generalized weakness. According to the patient, over the last few days, she was becoming increasingly weak and was unable to walk with a steady gait. She denied dizziness, shortness of breath. She denied fever and chills. Later she complained of chest pain. Workup in the emergency room revealed stable vital signs. Pulse oximetry was stable on room air. WBC slightly elevated - 11.9. Electrolytes and renal parameters stable. Urinalysis revealed +1 leukocyte esterase,negative for nitrite and only showed few bacteria. Troponin negative. ECG revealed normal sinus rhythm, no acute ischemic changes. Chest x-ray revealed pacemaker, cardiomegaly. No acute cardiopulmonary pathology. CT of L-spine and CT of C-spine both revealed no acute bony injury. The patient was admitted with a diagnosis of unsteady gait, generalized weakness, possible UTI, and chest pain, rule out acute coronary syndrome. HOSPITAL COURSE: The patient was admitted to telemetry floor. Initial troponin negative. ProBNP -2663. [employer] House Supervisor had seen and evaluated the patient. Serial troponin were negative. The patient initially was in sinus rhythm in the emergency room, but on telemetry showed atrial fibrillation. At some point, atrial fibrillation was with rapid ventricular response. The patient was already on amiodarone and beta-kelli, dose of beta-kelli increased and rate subsequently was controlled. The patient was already on anticoagulation with Pradaxa. Pradaxa was resumed upon admission. Acute coronary syndrome was ruled out with serial negative troponin and no ischemic changes on EKG. Chest pain was probably secondary to paroxysmal atrial fibrillation episode, no further episodes of chest pain. According to online program coordinator, dual-chamber pacemaker was placed secondary to sick sinus syndrome. It appeared to be functioning normally. According to online program coordinator, generalized weakness was likely secondary to episode of atrial fibrillation and lack of atrial kick. Blood pressure was managed with the current antihypertensive regimen and was stable. Statin was continued. Supplemental oxygen and pulmonary toilet provided as needed. Pulse oximetry was stable on the room air. Diet Supervisor had seen and evaluated the patient, diagnosed the patient with peripheral neuropathy. He recommended outpatient neurologist evaluation to identify the source of neuropathy. The patient was already on Neurontin. Diet Supervisor recommended to titrate Neurontin and added Lyrica. Bilateral foor x-ray were negative for acute bony injury or trauma. Psychiatrist had seen and evaluated the patient, diagnosed the patient with anxiety disorder and optimized psychiatric medication regimen. The patient was stable for discharge to home. Follow up with the primary medical doctor next week. FINAL DIAGNOSES: 1. Paroxysmal atrial fibrillation. 2. Generalized weakness, likely secondary to episode of atrial fibrillation and lack of atrial kick. 3. Hypertension. 4. Obstructive sleep apnea. 5. Peripheral neuropathy. 6. Hypercholesterolemia. 7. Chest pain probably due to episode of paroxysmal atrial fibrillation. 8. Coronary artery disease, status post myocardial infarction. 9. Congestive heart failure. No evidence of exacerbation. 10. Anxiety disorder. 11. Polycythemia vera DISCHARGE MEDICATIONS: See medication reconciliation list. DISCHARGE INSTRUCTIONS: The patient was discharged home with home health services. Follow up with primary medical doctor next week. Antonio Adrian M.D. I have been assigned to dictate discharge summary on this account and I was not involved in the patient's management. Cait MarquezAmsterdam Memorial HospitalNaif N.PDuy DR: KELLIE JOB#: [id number] CC: NAKITA
== END 2017-02-01 15:00 | disposition home health service (06) | DRG 310 ==
LOC: EMR 08:14 → 2E 08:38 → EDBEDREQSVC 10:40 → EDBEDREQ 10:41
DX: I48.0 Paroxysmal atrial fibrillation (principal); I50.9 Heart failure, unspecified; D45 Polycythemia vera; I11.0 Hypertensive heart disease with heart failure; G62.9 Polyneuropathy, unspecified; R29.6 Repeated falls; I25.2 Old myocardial infarction; Z95.0 Presence of cardiac pacemaker; G47.33 Obstructive sleep apnea (adult) (pediatric); E78.00 Pure hypercholesterolemia, unspecified; M79.672 Pain in left foot; M79.671 Pain in right foot; Z79.01 Long term (current) use of anticoagulants; Z86.73 Personal history of transient ischemic attack (TIA), and cerebral infarction without residual deficits; F41.1 Generalized anxiety disorder; R53.1 Weakness; Z87.891 Personal history of nicotine dependence; Z90.710 Acquired absence of both cervix and uterus
CPT/HCPCS: 36415; 70450; 71010; 72128; 72131; 80053; 81003; 82550; 82553; 82962; 83036; 83735; 83880; 84100; 84484; 85007; 85025; 93005; 99285; J1815; J2765; J8499

== ENCOUNTER 2017-03-14 05:52 | Emergency (ER) | payer MEDICARE, OTHER ==
[~2017-03-14] VITALS: Ht 167.6 cm; Wt 68.0 kg
[~2017-03-14 05:52] MED LIST changes: +BANOPHEN25 MG PO
[2017-03-14 06:53] VITALS: BP 142/70
[2017-03-14] MEDS ORDERED: Tylenol #3 tab (300mg/30mg) ORAL ONE ×2 (07:15→09:15)
--- NOTE | 2017-03-14 07:21 | Emergency Room Report ---
History of Present Illness General Chief Complaint: Lower Extremity Injury Source: Patient Present Illness HPI [id number] with left groin pain for 1-2 days Non radiating to back No associated trauma recently Took tylenol once at home No fever/chills, nausea/vomiting Able to ambulate with cane, albeit with pain Allergies: Coded Allergies: No Known Allergies (Unverified , 04/30/16) Patient History Past Medical History: see triage record, old chart reviewed, other - See HPI Past Surgical History: none Pertinent Family History: none Social History: Denies: smoking, alcohol use, drug use Last Menstrual Period: NA Now: No Immunizations: UTD Reviewed Nursing Documentation: PMH: Agreed, PSxH: Agreed Nursing Documentation-PMH Hx Cardiac Problems: Yes Hx Hypertension: Yes Hx Pacemaker: Yes Hx Asthma: No Hx COPD: No Hx Diabetes: No Hx Cancer: No Hx Gastrointestinal Problems: Yes Hx Dialysis: No Hx Neurological Problems: Yes Hx Cerebrovascular Accident: No Hx Transient Ischemic Attacks: Yes Hx Seizures: No Hx Headaches: Yes Hx Numbness: Yes Hx Weakness: Yes - Generalized weakness Review of Systems All Other Systems: negative except mentioned in HPI Physical Exam Vital Signs Date Time Temp Pulse Resp B/P (MAP) Pulse Ox O2 Delivery O2 Flow Rate FiO2 03/14/17 06:07 97.9 61 16 144/93 98 Room Air Sp02 EP Interpretation: reviewed, normal General Appearance: normal inspection, well appearing, no apparent distress, alert, GCS 15, non-toxic, other - Elderly, well-appearing Head: normocephalic, atraumatic Eyes: bilateral eye PERRL, bilateral eye EOMI ENT: normal ENT inspection, hearing grossly normal, normal pharynx, no angioedema, normal voice, TMs + canals normal, uvula midline, moist mucus membranes Neck: normal inspection, full range of motion, supple, thyroid normal, no meningismus, no bony tend Respiratory: normal inspection, lungs clear, normal breath sounds, no rhonchi, no respiratory distress, no retraction, no accessory muscle use, no wheezing, speaking full sentences Cardiovascular #1: regular rate, rhythm, no edema, no JVD, normal capillary refill Gastrointestinal: normal inspection, normal bowel sounds, non tender, soft, no mass, no peritonitis, non-distended, no guarding, no hernia, no pulsatile mass Genitourinary: no CVA tenderness Musculoskeletal: normal inspection, back normal, normal range of motion, no calf tenderness, pelvis stable, Mayuri's Sign negative, other - LLE: not shortened or rotated. On ROM of left hip, pain to groin area. Palpable ttp along left inguinal area Neurologic: normal inspection, alert, oriented x3, responsive, software quality test engineer III-XII nml as tested, motor strength/tone normal, cerebellar normal, normal gait, speech normal Psychiatric: normal inspection, judgement/insight normal, mood/affect normal, no suicidal/homicidal ideation, no delusions Skin: normal inspection, normal color, no rash Lymphatic: normal inspection, no adenopathy Medical Decision Making Diagnostic Impression: Primary Impression: Left groin pain ER Course 76-year-old female with 2 today's of left groin pain Vital signs stable, afebrile Mild tenderness to palpation to left groin on exam low Suspicion for occult hip fracture given no shortened or rotated extremity, no recent trauma CT pelvis negative for acute trauma or other findings to explain symptoms Lab work and urinalysis also negative; no leukocytosis, H&H stable, UA negative for infection Patient given pain medication ER She ambulates at baseline with cane ER course: Patient has remained stable during ED stay. Disposition: Patient is to be discharged to home. Prescriptions given are tylenol Patient is instructed to follow up with their primary care doctor within 5 days. Strict return precautions discussed with patient such as fever, chills, worsening/severe pain, nausea, vomiting, which may indicate severe illness. Patient verbalizes understanding and agrees with plan. Please note that this Emergency Department Report was dictated using [employer] man technology software, occasionally this can lead to erroneous entry secondary to interpretation by the dictation equipment EKG Diagnostic Results Rate: other - atrial paced Rhythm: other - atrial paced ST Segments: no acute changes ASA given to the pt in ED: No Rhythm Strip Diag. Results EP Interpretation: yes Rate: 65 Rhythm: NSR, no PVC's, no ectopy Last Vital Signs Date Time Temp Pulse Resp B/P (MAP) Pulse Ox O2 Delivery O2 Flow Rate FiO2 03/14/17 06:53 97.9 16 142/70 98 Room Air 03/14/17 06:07 61 Status: improved Disposition: HOME, SELF-CARE Scripts Acetaminophen (Tylenol) 325 Mg Tablet 650 MG ORAL Q6H Y for Prn Pain/Headache/Temp > 101 for 7 Days, #30 TAB 0 Refills Prov: ROBERT HARDY M.D. 03/14/17 Referrals: NOT CHOSEN IPA/,REFERRING (PCP) ROBERT HARDY M.D. Mar 14, 2017 07:21
[2017-03-14 08:00] LABS: HEMOGLOBIN 15.4 G/DL (12.0-16.0); MEAN CORPUSCULAR VOLUME 97 FL (80-99); PLATELET COUNT 133 K/UL (150-450); RED BLOOD COUNT 5.16 M/UL (4.20-5.40); RED CELL DISTRIBUTION WIDTH 21.4 % (11.6-14.8); WHITE BLOOD COUNT 7.2 K/UL (4.8-10.8)
[2017-03-14 08:01] LABS: ANION GAP 4 mmol/L (5-15); BLOOD UREA NITROGEN 14 mg/dL (7-18); CALCIUM 9.3 MG/DL (8.5-10.1); CARBON DIOXIDE 29 MMOL/L (21-32); CHLORIDE 104 MMOL/L (98-107); CREATININE 0.8 MG/DL (0.55-1.30); POTASSIUM 4.3 MMOL/L (3.5-5.1); SODIUM 137 MMOL/L (136-145)
[2017-03-14 08:05] LABS: ALANINE AMINOTRANSFERASE 12 U/L (12-78); ALBUMIN 3.3 G/DL (3.4-5.0); ALBUMIN/GLOBULIN RATIO 0.8 (1.0-2.7); ALKALINE PHOSPHATASE 104 U/L (46-116); ASPARTATE AMINO TRANSFERASE 24 U/L (15-37); BILIRUBIN,TOTAL 0.5 MG/DL (0.2-1.0)
[2017-03-14 08:21] LABS: APPEARANCE,URINE CLEAR; BILIRUBIN, URINE NEGATIVE (NEGATIVE); COLOR,URINE PALE YELLOW; GLUCOSE, URINE (UA) NEGATIVE (NEGATIVE); KETONES,URINE NEGATIVE (NEGATIVE); LEUKOCYTE ESTERASE ,URINE 1+ (NEGATIVE); NITRITE,URINE NEGATIVE (NEGATIVE); PH,URINE 5 (4.5-8.0); PROTEIN,URINE 2+ (NEGATIVE); UROBILINOGEN,URINE NORMAL MG/DL (0.0-1.0)
--- NOTE | 2017-03-14 08:49 | Diagnostic Imaging Report ---
Indication: Pelvic and left groin pain Technique: CT of pelvis was performed utilizing automated exposure control without intravenous contrast material. Axial and sagittal and coronal images were generated. CT dose: Total DLP 690.35 mGycm; CTDI vol 23.71 mGy Comparison: Correlation made to images from CT of the abdomen and pelvis 10/04/16 Findings: No evidence of acute fracture. Mild degenerative change of the bilateral hip joints. Sacroiliac joints and symphysis pubis maintained. There are unchanged sclerotic foci within the left iliac bone and left femur compatible with bone islands. There are multilevel degenerative changes of the lumbar spine, with unchanged grade 1 anterolisthesis of L5 on S1 and vacuum disc phenomenon at multiple levels. Patient again noted to be status post hysterectomy. Multiple surgical clips again noted in the retroperitoneum. There is sigmoid diverticulosis. No evidence to suggest an acute diverticulitis. No bowel obstruction. Bladder is unremarkable in appearance. No bulky lymphadenopathy identified. No ventral or inguinal hernia is identified. There are calcifications in the gluteal soft tissues, possibly sequela of prior trauma or medication injection. IMPRESSION: No evidence of acute fracture or dislocation. Additional findings as above. The CT scanner at [facility] is accredited by the [employer] and the scans are performed using protocols designed to limit radiation exposure to as low as reasonably achievable to attain images of sufficient resolution adequate for diagnostic evaluation.
[2017-03-14] MEDS ORDERED: TYLENOL325 MG ORAL (08:53)
[2017-03-14 08:58] VITALS: BP 137/71
[2017-03-14] MEDS ORDERED: Ketorolac 30mg Inj IV ONE (09:15)
[2017-03-14 09:28] VITALS: BP 125/70
[2017-03-14 09:30] VITALS: BP 125/70
== END 2017-03-14 09:30 | disposition home or self-care (01) ==
LOC: EMR 06:24 → CANBEDREQ 09:02 → EMR 09:30
DX: R10.32 Left lower quadrant pain (principal); I10 Essential (primary) hypertension; Z95.0 Presence of cardiac pacemaker; Z86.73 Personal history of transient ischemic attack (TIA), and cerebral infarction without residual deficits
CPT/HCPCS: 36415; 72192; 80053; 81003; 83690; 84484; 85007; 85025; 93005; 99284

== ENCOUNTER 2017-04-08 11:26 | Emergency (ER) | payer MEDICARE, OTHER ==
[~2017-04-08] VITALS: Ht 165.1 cm; Wt 68.0 kg
[~2017-04-08 11:26] MED LIST changes: +TYLENOL325 MG ORAL
[2017-04-08 11:46] VITALS: BP 113/67
--- NOTE | 2017-04-08 12:15 | Emergency Room Report ---
History of Present Illness General Chief Complaint: Pain Source: Patient Present Illness HPI 76-year-old female, history of hypertension, pacemaker, unproductive, had a mechanical fall. Fell on to her front. Now complaining of right-sided hip pain and vague right-sided abdominal pain. Worse when she walks. No nausea vomiting. Has not taken anything for pain Allergies: Coded Allergies: No Known Allergies (Unverified , 04/30/16) Patient History Past Medical History: see triage record Past Surgical History: none Pertinent Family History: none Last Menstrual Period: Hysterectomy Now: No Reviewed Nursing Documentation: PMH: Agreed, PSxH: Agreed Nursing Documentation-PMH Past Medical History: No History, Except For Hx Cardiac Problems: Yes Hx Hypertension: Yes Hx Pacemaker: Yes Hx Asthma: No Hx COPD: No Hx Diabetes: No Hx Cancer: No Hx Gastrointestinal Problems: Yes Hx Dialysis: No Hx Neurological Problems: Yes Hx Cerebrovascular Accident: No Hx Transient Ischemic Attacks: Yes Hx Seizures: No Hx Headaches: Yes Hx Numbness: Yes Hx Weakness: Yes - Generalized weakness Review of Systems All Other Systems: negative except mentioned in HPI Physical Exam Vital Signs Date Time Temp Pulse Resp B/P (MAP) Pulse Ox O2 Delivery O2 Flow Rate FiO2 04/08/17 11:31 98.2 61 12 113/67 100 Room Air 98.2 Sp02 EP Interpretation: reviewed, normal General Appearance: alert, GCS 15, non-toxic, mild distress Head: normocephalic, atraumatic Eyes: bilateral eye normal inspection, bilateral eye PERRL, bilateral eye EOMI ENT: normal ENT inspection, normal pharynx, normal voice, moist mucus membranes Neck: normal inspection, full range of motion, supple Respiratory: normal inspection, lungs clear, normal breath sounds, no respiratory distress, no retraction, no wheezing, speaking full sentences, chest symmetrical Cardiovascular #1: normal inspection, regular rate, rhythm, no edema, normal capillary refill Cardiovascular #2: 2+ radial (R), 2+ radial (L) Gastrointestinal: normal inspection, non tender, soft, non-distended, no guarding Musculoskeletal: other - R sided hip tenderness. limited rom 2.2 to pain. noshortening or rotation of limb Neurologic: normal inspection, alert, oriented x3, responsive, motor strength/ tone normal, sensory intact, normal gait, speech normal Psychiatric: normal inspection, judgement/insight normal, memory normal Skin: normal inspection, normal color, no rash, warm/dry, well hydrated, normal turgor Medical Decision Making Diagnostic Impression: Primary Impression: Hip pain Additional Impression: Lesion of spleen ER Course 76-year-old female, right-sided hip pain for 4 days after a fall Also as a vague right-sided abdominal pain DDX: Fracture versus contusion versus intra-abdominal injury although unlikely given 4 days out Plan: Obtain labs, ua, CT abdomen pelvis ER course: Patient has remained stable during ED stay. no fx on CT and no acute injury splenic lesion noted, pt instructed to fu with primary care doctor able to ambulate with her walker Disposition: Patient is to be discharged to home. Please note that this Emergency Department Report was dictated using [employer] automotive technician technology software, occasionally this can lead to erroneous entry secondary to interpretation by the dictation equipment Rhythm Strip EP Interpretation: Yes Rate: 60 Rhythm: NSR, no PVCs, no ectopy Laboratory Tests Test 04/08/17 12:18 White Blood Count 7.9 K/UL (4.8-10.8) Red Blood Count 4.01 M/UL (4.20-5.40) L Hemoglobin 12.5 G/DL (12.0-16.0) Hematocrit 39.3 % (37.0-47.0) Mean Corpuscular Volume 98 FL (80-99) Mean Corpuscular Hemoglobin 31.1 PG (27.0-31.0) H Mean Corpuscular Hemoglobin Concent 31.7 G/DL (32.0-36.0) L Red Cell Distribution Width 21.2 % (11.6-14.8) H Platelet Count 180 K/UL (150-450) Mean Platelet Volume 11.4 FL (6.5-10.1) H Neutrophils (%) (Auto) % (45.0-75.0) Lymphocytes (%) (Auto) % (20.0-45.0) Monocytes (%) (Auto) % (1.0-10.0) Eosinophils (%) (Auto) % (0.0-3.0) Basophils (%) (Auto) % (0.0-2.0) Neutrophils % (Manual) Pending Lymphocytes % (Manual) Pending Platelet Estimate Pending Platelet Morphology Pending Prothrombin Time 14.7 SEC (9.30-11.50) H Prothrombin Time INR 1.4 (0.9-1.1) H PTT 45 SEC (23-33) H Sodium Level 137 MMOL/L (136-145) Potassium Level 4.3 MMOL/L (3.5-5.1) Chloride Level 102 MMOL/L (98-107) Carbon Dioxide Level 27 MMOL/L (21-32) Anion Gap 8 mmol/L (5-15) Blood Urea Nitrogen 13 mg/dL (7-18) Creatinine 0.8 MG/DL (0.55-1.30) Estimate Glomerular Filtration Rate mL/min (>60) Glucose Level 137 MG/DL (74-106) H Calcium Level 8.9 MG/DL (8.5-10.1) Total Bilirubin 0.4 MG/DL (0.2-1.0) Aspartate Amino Transferase (AST) 21 U/L (15-37) Alanine Aminotransferase (ALT) 15 U/L (12-78) Alkaline Phosphatase 84 U/L (46-116) Total Protein 6.7 G/DL (6.4-8.2) Albumin 2.6 G/DL (3.4-5.0) L Globulin 4.1 g/dL Albumin/Globulin Ratio 0.6 (1.0-2.7) L Lipase 56 U/L (73-393) L CT/MRI/US Diagnostic Results CT/MRI/US Diagnostic Results : Imaging Test Ordered: CT abdo pelvic Impression Findings: Small right pleural effusion demonstrated. Reticular densities at the right lung base likely represent atelectasis. Cardiomegaly is present. There is a pacemaker noted. The spleen is enlarged measuring about 16 cm in its largest dimension which is in the AP projection. In the dome of the spleen there is a well-circumscribed hypodensity which may be cystic measuring 3.5 cm. Evaluation of solid organs on this examination is limited as no intravenous contrast was given. The liver is grossly unremarkable. Gallbladder is grossly unremarkable. There is no nephrolithiasis identified. Streak artifact from metallic hardware noted in the retroperitoneum and bilateral iliac regions. Diverticula demonstrated within the colon. No obvious diverticulitis appreciated. Appendix is not definitely seen. There are no secondary signs of acute appendicitis. The urinary bladder is unremarkable in appearance. The uterus is not seen. There is narrowing of intervertebral vacuum discs and accompanying endplate osteophyte formation. Hypertrophied facet joints also demonstrated. IMPRESSION: Splenomegaly. Suspected cystic versus solid lesion in the dome of the spleen nonspecific on this examination. Moderate degenerative disease of the lumbar and thoracic spine. Evidence of previous retroperitoneal dissection. Diverticulosis of the colon. No obvious diverticulitis. Status post hysterectomy. Small right pleural effusion. Right basilar atelectasis and/or pneumonia. Pacemaker Atherosclerotic vascular disease and cardiomegaly Last Vital Signs Date Time Temp Pulse Resp B/P (MAP) Pulse Ox O2 Delivery O2 Flow Rate FiO2 04/08/17 11:46 98.2 12 113/67 100 Room Air 98.2 04/08/17 11:31 61 Disposition: HOME, SELF-CARE Condition: Improved Referrals: NOT CHOSEN JER/,REFERRING (PCP) Yair Mckinney M.D. Apr 08, 2017 12:15
[2017-04-08 12:40] LABS: HEMATOCRIT 39.3 % (37.0-47.0); HEMOGLOBIN 12.5 G/DL (12.0-16.0); MEAN CORPUSCULAR VOLUME 98 FL (80-99); PLATELET COUNT 180 K/UL (150-450); RED BLOOD COUNT 4.01 M/UL (4.20-5.40); RED CELL DISTRIBUTION WIDTH 21.2 % (11.6-14.8); WHITE BLOOD COUNT 7.9 K/UL (4.8-10.8)
[2017-04-08 12:45] LABS: INR 1.4 (0.9-1.1)
[2017-04-08 12:56] LABS: ANION GAP 8 mmol/L (5-15); BLOOD UREA NITROGEN 13 mg/dL (7-18); CALCIUM 8.9 MG/DL (8.5-10.1); CARBON DIOXIDE 27 MMOL/L (21-32); CHLORIDE 102 MMOL/L (98-107); CREATININE 0.8 MG/DL (0.55-1.30); POTASSIUM 4.3 MMOL/L (3.5-5.1); SODIUM 137 MMOL/L (136-145)
[2017-04-08 13:00] LABS: ALANINE AMINOTRANSFERASE 15 U/L (12-78); ALBUMIN 2.6 G/DL (3.4-5.0); ALBUMIN/GLOBULIN RATIO 0.6 (1.0-2.7); ALKALINE PHOSPHATASE 84 U/L (46-116); ASPARTATE AMINO TRANSFERASE 21 U/L (15-37); BILIRUBIN,TOTAL 0.4 MG/DL (0.2-1.0)
--- NOTE | 2017-04-08 13:08 | Diagnostic Imaging Report ---
Indication: Abdominal pain Technique: Continuous helical transaxial imaging of the abdomen and pelvis was obtained from the lung bases to the pubic symphysis. No intravenous contrast was administered. Coronal 2-D reformats were also obtained. Automatic Exposure Control was utilized. Total Dose length Product (DLP): 748.[address] Dose Index Volume (CTDIvol): 16.82 mGy Comparison: none Findings: Small right pleural effusion demonstrated. Reticular densities at the right lung base likely represent atelectasis. Cardiomegaly is present. There is a pacemaker noted. The spleen is enlarged measuring about 16 cm in its largest dimension which is in the AP projection. In the dome of the spleen there is a well-circumscribed hypodensity which may be cystic measuring 3.5 cm. Evaluation of solid organs on this examination is limited as no intravenous contrast was given. The liver is grossly unremarkable. Gallbladder is grossly unremarkable. There is no nephrolithiasis identified. Streak artifact from metallic hardware noted in the retroperitoneum and bilateral iliac regions. Diverticula demonstrated within the colon. No obvious diverticulitis appreciated. Appendix is not definitely seen. There are no secondary signs of acute appendicitis. The urinary bladder is unremarkable in appearance. The uterus is not seen. There is narrowing of intervertebral vacuum discs and accompanying endplate osteophyte formation. Hypertrophied facet joints also demonstrated. IMPRESSION: Splenomegaly. Suspected cystic versus solid lesion in the dome of the spleen nonspecific on this examination. Moderate degenerative disease of the lumbar and thoracic spine. Evidence of previous retroperitoneal dissection. Diverticulosis of the colon. No obvious diverticulitis. Status post hysterectomy. Small right pleural effusion. Right basilar atelectasis and/or pneumonia. Pacemaker Atherosclerotic vascular disease and cardiomegaly The CT scanner at [facility] is accredited by the [employer] and the scans are performed using dose optimization techniques as appropriate to a performed exam including Automatic Exposure control.
[2017-04-08] MEDS ORDERED: Acetaminophen 500mg (ES) tab ORAL ONE (13:30)
[2017-04-08 13:32] LABS: APPEARANCE,URINE SLIGHTLY CLOUDY; BILIRUBIN, URINE NEGATIVE (NEGATIVE); COLOR,URINE YELLOW; GLUCOSE, URINE (UA) NEGATIVE (NEGATIVE); KETONES,URINE NEGATIVE (NEGATIVE); LEUKOCYTE ESTERASE ,URINE 1+ (NEGATIVE); NITRITE,URINE NEGATIVE (NEGATIVE); PH,URINE 5 (4.5-8.0); PROTEIN,URINE 1+ (NEGATIVE); UROBILINOGEN,URINE NORMAL MG/DL (0.0-1.0)
[2017-04-08 13:41] VITALS: BP 149/82
== END 2017-04-08 13:42 | disposition home or self-care (01) ==
LOC: EMR 12:10
DX: M25.551 Pain in right hip (principal); D73.89 Other diseases of spleen; I10 Essential (primary) hypertension; Z95.0 Presence of cardiac pacemaker; Z86.73 Personal history of transient ischemic attack (TIA), and cerebral infarction without residual deficits; R16.1 Splenomegaly, not elsewhere classified; K57.30 Diverticulosis of large intestine without perforation or abscess without bleeding; Z90.710 Acquired absence of both cervix and uterus; J90 Pleural effusion, not elsewhere classified
CPT/HCPCS: 36415; 74176; 80053; 81003; 83690; 85007; 85025; 85610; 85730; 99284

== ENCOUNTER → 2017-06-26 | Outpatient (CLI) | payer MEDICARE, OTHER ==
[2017-06-26 11:05] LABS: HEMATOCRIT 37.6 % (37.0-47.0); HEMOGLOBIN 11.5 G/DL (12.0-16.0); MEAN CORPUSCULAR VOLUME 105 FL (80-99); PLATELET COUNT 162 K/UL (150-450); RED CELL DISTRIBUTION WIDTH 17.7 % (11.6-14.8); WHITE BLOOD COUNT 7.2 K/UL (4.8-10.8)
[2017-06-26 11:25] LABS: INR 1.4 (0.9-1.1)
[2017-06-26 11:33] LABS: ALANINE AMINOTRANSFERASE 16 U/L (12-78); ALBUMIN 3.1 G/DL (3.4-5.0); ALBUMIN/GLOBULIN RATIO 0.7 (1.0-2.7); ALKALINE PHOSPHATASE 86 U/L (46-116); ANION GAP 6 mmol/L (5-15); ASPARTATE AMINO TRANSFERASE 19 U/L (15-37); BILIRUBIN,TOTAL 0.4 MG/DL (0.2-1.0); BLOOD UREA NITROGEN 16 mg/dL (7-18); CALCIUM 8.7 MG/DL (8.5-10.1); CARBON DIOXIDE 29 MMOL/L (21-32); CHLORIDE 105 MMOL/L (98-107); CHOLESTEROL 134 MG/DL (< 200); CREATININE 0.9 MG/DL (0.55-1.30); HDL CHOLESTEROL 37 MG/DL (40-60); PHOSPHORUS 3.3 MG/DL (2.5-4.9); POTASSIUM 4.4 MMOL/L (3.5-5.1); SODIUM 140 MMOL/L (136-145); TRIGLYCERIDES 128 MG/DL (30-150)
== END | disposition home or self-care (01) ==
LOC: LAB 10:16
DX: I10 Essential (primary) hypertension (principal); E66.9 Obesity, unspecified; M10.9 Gout, unspecified; Z86.73 Personal history of transient ischemic attack (TIA), and cerebral infarction without residual deficits; I48.91 Unspecified atrial fibrillation; D75.1 Secondary polycythemia; Z95.0 Presence of cardiac pacemaker; I11.0 Hypertensive heart disease with heart failure
CPT/HCPCS: 36415; 80053; 80061; 82306; 82607; 82746; 83036; 83735; 84100; 84443; 84550; 85007; 85025; 85610; 85730

== ENCOUNTER 2017-10-21 12:16 | Inpatient (IN) | payer MEDICARE, OTHER ==
[~2017-10-21] VITALS: Ht 160 cm; Wt 67.1 kg
[2017-10-21 12:30] VITALS: BP 111/71
[2017-10-21 13:37] LABS: HEMATOCRIT 32.3 % (37.0-47.0); MEAN CORPUSCULAR VOLUME 105 FL (80-99); RED BLOOD COUNT 3.08 M/UL (4.20-5.40); RED CELL DISTRIBUTION WIDTH 20.8 % (11.6-14.8); WHITE BLOOD COUNT 5.9 K/UL (4.8-10.8)
[2017-10-21 13:41] LABS: ANION GAP 6 mmol/L (5-15); BLOOD UREA NITROGEN 18 mg/dL (7-18); CALCIUM 8.8 MG/DL (8.5-10.1); CARBON DIOXIDE 26 MMOL/L (21-32); CHLORIDE 106 MMOL/L (98-107); CREATININE 0.8 MG/DL (0.55-1.30); POTASSIUM 3.7 MMOL/L (3.5-5.1); SODIUM 138 MMOL/L (136-145)
[2017-10-21 13:57] LABS: ALANINE AMINOTRANSFERASE 12 U/L (12-78); ALBUMIN 2.8 G/DL (3.4-5.0); ALBUMIN/GLOBULIN RATIO 0.7 (1.0-2.7); ALKALINE PHOSPHATASE 78 U/L (46-116); ASPARTATE AMINO TRANSFERASE 17 U/L (15-37); BILIRUBIN,TOTAL 0.5 MG/DL (0.2-1.0)
[2017-10-21 14:06] LABS: PLATELET COUNT 117 K/UL (150-450)
--- NOTE | 2017-10-21 14:18 | Emergency Room Report ---
History of Present Illness General Chief Complaint: Generalized Weakness Source: Patient Present Illness HPI 77-year-old female presents ED for evaluation. Patient referred by PMD. Patient states she's been having weakness and persistent diarrhea for about one week now. Denies fevers or chills. States she feels weak with poor appetite. Denies chest pain or shortness of breath. Denies sick contacts or recent travel. No other aggravating relieving factors. Denies any other associated symptoms Allergies: Coded Allergies: No Known Allergies (Unverified , 04/30/16) Patient History Past Medical History: HTN, CVA/TIA Past Surgical History: pacemaker Pertinent Family History: none Social History: Denies: smoking, alcohol use, drug use Now: No Immunizations: UTD Reviewed Nursing Documentation: PMH: Agreed; PSxH: Agreed Nursing Documentation-PMH Past Medical History: No History, Except For Hx Cardiac Problems: Yes Hx Hypertension: Yes Hx Pacemaker: Yes Hx Asthma: No Hx COPD: No Hx Diabetes: No Hx Cancer: No Hx Gastrointestinal Problems: Yes Hx Dialysis: No Hx Neurological Problems: Yes Hx Cerebrovascular Accident: No Hx Transient Ischemic Attacks: Yes Hx Seizures: No Hx Headaches: Yes Hx Numbness: Yes Hx Weakness: Yes - Generalized weakness Review of Systems All Other Systems: negative except mentioned in HPI Physical Exam Vital Signs Date Time Temp Pulse Resp B/P (MAP) Pulse Ox O2 Delivery O2 Flow Rate FiO2 10/21/17 12:24 98.0 73 19 111/71 91 Room Air 98.1 Sp02 EP Interpretation: reviewed, normal General Appearance: no apparent distress, alert, GCS 15, non-toxic Head: normocephalic, atraumatic Eyes: bilateral eye normal inspection, bilateral eye PERRL ENT: hearing grossly normal, normal pharynx, no angioedema, normal voice Neck: full range of motion, supple/symm/no masses Respiratory: chest non-tender, lungs clear, normal breath sounds, speaking full sentences Cardiovascular #1: regular rate, rhythm, no edema Cardiovascular #2: 2+ carotid (R), 2+ carotid (L), 2+ radial (R), 2+ radial (L) , 2+ dorsalis pedis (R), 2+ dorsalis pedis (L) Gastrointestinal: normal bowel sounds, non tender, soft, non-distended, no guarding, no rebound Rectal: deferred Genitourinary: normal inspection, no CVA tenderness Musculoskeletal: back normal, gait/station normal, normal range of motion, non- tender Neurologic: alert, oriented x3, responsive, motor strength/tone normal, sensory intact, speech normal Psychiatric: judgement/insight normal, memory normal, mood/affect normal, no suicidal/homicidal ideation Reflexes: 3+ bicep (R), 3+ bicep (L), 3+ tricep (R), 3+ tricep (L), 3+ knee (R) , 3+ knee (L) Skin: normal color, no rash, warm/dry, well hydrated Lymphatic: no adenopathy Medical Decision Making Diagnostic Impression: Primary Impression: Episode of generalized weakness Additional Impression: Diarrhea Qualified Codes: R19.7 - Diarrhea, unspecified ER Course Hospital Course 77-year-old male presents ED with diarrhea, weakness Clinical course differential - cdiff, gastroenteritis, dehhydration Patient placed on stretcher. After initial history and physical I ordered labs , IV fluids Labs - no leukocytosis noted, Hb/Hct stable. electrolytes ok Case discussed with Dr. Adrian and he agreed to accept the patient to his service for further care and support I feel this is a highly complex case requiring extensive working including EKG/ Rhythm strip, Xray/CT/US, Blood/urine lab work, repeat exams while in ED, and administration of strong opiates/narcotics for pain control, admission to hospital or close patient follow up. Diagnosis - weakness, diarrhea Patient admitted to hospital in serious condition Labs Test 10/21/17 13:04 White Blood Count 5.9 K/UL (4.8-10.8) Red Blood Count 3.08 M/UL (4.20-5.40) Hemoglobin 10.0 G/DL (12.0-16.0) Hematocrit 32.3 % (37.0-47.0) Mean Corpuscular Volume 105 FL (80-99) Mean Corpuscular Hemoglobin 32.4 PG (27.0-31.0) Mean Corpuscular Hemoglobin Concent 31.0 G/DL (32.0-36.0) Red Cell Distribution Width 20.8 % (11.6-14.8) Platelet Count 117 K/UL (150-450) Mean Platelet Volume 11.9 FL (6.5-10.1) Neutrophils (%) (Auto) % (45.0-75.0) Lymphocytes (%) (Auto) % (20.0-45.0) Monocytes (%) (Auto) % (1.0-10.0) Eosinophils (%) (Auto) % (0.0-3.0) Basophils (%) (Auto) % (0.0-2.0) Differential Total Cells Counted 100 Neutrophils % (Manual) 83 % (45-75) Lymphocytes % (Manual) 12 % (20-45) Monocytes % (Manual) 0 % (1-10) Eosinophils % (Manual) 1 % (0-3) Basophils % (Manual) 0 % (0-2) Band Neutrophils 4 % (0-8) Platelet Estimate Decreased Platelet Morphology See comment Giant Platelets Rare Anisocytosis 1+ Ovalocytes 2+ Sodium Level 138 MMOL/L (136-145) Potassium Level 3.7 MMOL/L (3.5-5.1) Chloride Level 106 MMOL/L (98-107) Carbon Dioxide Level 26 MMOL/L (21-32) Anion Gap 6 mmol/L (5-15) Blood Urea Nitrogen 18 mg/dL (7-18) Creatinine 0.8 MG/DL (0.55-1.30) Estimat Glomerular Filtration Rate mL/min (>60) Glucose Level 110 MG/DL (74-106) Lactic Acid Level 1.50 mmol/L (0.4-2.0) Calcium Level 8.8 MG/DL (8.5-10.1) Total Bilirubin 0.5 MG/DL (0.2-1.0) Aspartate Amino Transf (AST/SGOT) 17 U/L (15-37) Alanine Aminotransferase (ALT/SGPT) 12 U/L (12-78) Alkaline Phosphatase 78 U/L (46-116) Total Protein 6.7 G/DL (6.4-8.2) Albumin 2.8 G/DL (3.4-5.0) Globulin 3.9 g/dL Albumin/Globulin Ratio 0.7 (1.0-2.7) EKG Diagnostic Results Rate: normal Rhythm: other - paced ST Segments: no acute changes ASA given to the pt in ED: No Rhythm Strip Diag. Results Rhythm: no PVC's, no ectopy Last Vital Signs Date Time Temp Pulse Resp B/P (MAP) Pulse Ox O2 Delivery O2 Flow Rate FiO2 10/21/17 12:30 98.1 19 111/71 91 Room Air 98.1 10/21/17 12:24 73 Status: improved Disposition: ADMITTED INPATIENT Condition: Serious Referrals: Antonio Adrian MD (PCP) Rush Guillermo MD Oct 21, 2017 14:18
[2017-10-21 14:50] LABS: APPEARANCE,URINE CLEAR; BILIRUBIN, URINE NEGATIVE (NEGATIVE); COLOR,URINE PALE YELLOW; GLUCOSE, URINE (UA) NEGATIVE (NEGATIVE); KETONES,URINE NEGATIVE (NEGATIVE); LEUKOCYTE ESTERASE ,URINE 1+ (NEGATIVE); NITRITE,URINE NEGATIVE (NEGATIVE); PH,URINE 5 (4.5-8.0); PROTEIN,URINE 1+ (NEGATIVE); UROBILINOGEN,URINE NORMAL MG/DL (0.0-1.0)
[2017-10-21 15:32] VITALS: BP 126/60
[2017-10-21] MEDS ORDERED: Hydroxyurea 500mg cap ORAL SCH (18:00)
--- NOTE | 2017-10-21 19:20 | History & Physical ---
History and Physical History & Physicial Dictated for Int Med-Dr Champion no. [id number]. Roshan Edwards MD Oct 21, 2017 19:20
[2017-10-21 20:00] VITALS: BP 117/64
[2017-10-21] MEDS: Lisinopril 20mg tab ORAL SCH (20:31)
[2017-10-21] MEDS: Metoprolol Tartrate 50mg tab ORAL SCH (20:32)
[2017-10-21] MEDS: Dabigatran 150mg cap ORAL SCH (20:32)
--- NOTE | 2017-10-21 23:30 | History and Physical Report ---
DATE OF ADMISSION: 10/21/2017 CHIEF COMPLAINT: The patient is a 77-year-old white female, who presents with a chief complaint of diarrhea and dizziness. HISTORY OF PRESENT ILLNESS: Began one week prior to admission. The patient began to have diarrhea. The patient has several bowel movements daily. The patient is incontinent of her bowels. The patient states diarrhea is complete water. There is no blood in the stool. The patient then became very dizzy. The patient presented to [facility] emergency room. The patient is admitted with dehydration secondary to diarrhea. REVIEW OF SYSTEM: CONSTITUTIONAL: The patient denies weight loss or weight gain. The patient denies fevers or chills. HEENT: The patient denies ear or throat pain. The patient denies headache. CARDIOVASCULAR: The patient denies palpitations or chest pain. CHEST: The patient denies wheeze or shortness of breath. ABDOMINAL: The patient complains of diarrhea as above. The patient denies nausea, vomiting, or constipation. GENITOURINARY: The patient denies dysuria or increased frequency of urination. NEUROMUSCULAR: The patient denies seizures or generalized weakness. PAST MEDICAL HISTORY: Significant for, 1. Atrial fibrillation. 2. Polycythemia vera. 3. Hypertension. 4. Obstructive sleep apnea. 5. Coronary artery disease, status post myocardial infarction. 6. Hypercholesterolemia. 7. Congestive heart failure. PAST SURGICAL HISTORY: Significant for, 1. Pacemaker implantation. 2. Total abdominal hysterectomy. CURRENT MEDICATIONS: 1. Amiodarone 200 mg p.o. daily. 2. Calcium carbonate 500 mg p.o. daily. 3. Clonidine 0.1 mg p.o. q.8 hours. 4. Pradaxa 150 mg p.o. twice daily. 5. Diphenhydramine 25 mg p.o. daily. 6. Furosemide 40 mg p.o. daily. 7. Gabapentin 400 mg p.o. 3 times daily. 8. Hydroxyurea 500 mg p.o. daily. 9. Lisinopril 20 mg p.o. twice daily. 10. Metoprolol 50 mg p.o. twice daily. 11. Potassium chloride 10 mEq p.o. daily. ALLERGIES: No known drug allergies. SOCIAL HISTORY: The patient is single. The patient lives with her nephew. The patient denies tobacco use having quit 20 years ago. The patient denies alcohol use. PHYSICAL EXAMINATION: VITAL SIGNS: Temperature 98, respirations 19, pulse 73, and blood pressure 111/71. GENERAL: The patient is a well-developed and well-nourished white female, in no apparent distress. HEENT: Eyes, pupils are equal and responsive to light and accommodation. Extraocular movements are intact. NECK: Supple without lymphadenopathy. CHEST: Lungs are clear to auscultation bilaterally without wheezes or rales. CARDIOVASCULAR: Regular rhythm and rate. S1 and S2 are normal without murmurs, rubs, or gallops. ABDOMEN: Soft, nontender, and nondistended. Positive bowel sounds. No evidence of hepatosplenomegaly. Currently, no rebound or guarding noted. EXTREMITIES: Negative for clubbing, cyanosis, or edema. RECTAL/GENITAL: Refused. NEUROLOGIC: Cranial nerves II through XII are grossly intact without focal deficits. Motor strength is 5/5 bilaterally. Deep tendon reflexes are 2+ plantar. LABORATORY STUDIES: WBC 5.9, hemoglobin 10.3, hematocrit 32.3, and platelets 170,000. Sodium 138, potassium 3.7, chloride 106, CO2 26, BUN 18, creatinine 0.8, and glucose 110. Urinalysis showed 1+ protein and 1+ leukocyte esterase with 5 to 10 wbc's. ASSESSMENT: This is a 77-year-old female. 1. Diarrhea. 2. Urinary tract infection. 3. Atrial fibrillation. 4. Polycythemia vera. 5. Hypertension. 6. Obstructive sleep apnea. 7. Coronary artery disease. 8. Hypercholesterolemia. 9. Congestive heart failure. TREATMENT: 1. Diarrhea. A Gastroenterology consultation has been obtained with Dr. Blair Kaiser. Stool cultures are pending. A Clostridium difficile culture is pending. We will follow recommendation of Gastroenterology. 2. Urinary tract infection. The patient has been started empirically on Rocephin. Urine culture is pending. 3. Atrial fibrillation. A Cardiology consultation has been obtained with Dr. River Freitas. Continue amiodarone as above. 4. Polycythemia vera. Continue hydroxyurea as above. 5. Hypertension. Continue Lopressor and lisinopril as above. 6. Coronary artery disease. 7. Hypercholesterolemia. 8. History of congestive heart failure. Roshan Edwards M.D. DR: EDGARD JOB#: [id number] CC:
[2017-10-22] VITALS: BP 117/64
[2017-10-22 04:00] VITALS: BP 111/61
[2017-10-22 06:49] LABS: HEMATOCRIT 28.9 % (37.0-47.0); HEMOGLOBIN 9.1 G/DL (12.0-16.0); MEAN CORPUSCULAR VOLUME 104 FL (80-99); PLATELET COUNT 87 K/UL (150-450); RED BLOOD COUNT 2.77 M/UL (4.20-5.40); RED CELL DISTRIBUTION WIDTH 21.4 % (11.6-14.8); WHITE BLOOD COUNT 4.5 K/UL (4.8-10.8)
[2017-10-22 06:59] LABS: ALANINE AMINOTRANSFERASE 10 U/L (12-78); ALBUMIN 2.6 G/DL (3.4-5.0); ALKALINE PHOSPHATASE 70 U/L (46-116); ANION GAP 4 mmol/L (5-15); ASPARTATE AMINO TRANSFERASE 12 U/L (15-37); BILIRUBIN,TOTAL 0.5 MG/DL (0.2-1.0); BLOOD UREA NITROGEN 11 mg/dL (7-18); CALCIUM 8.6 MG/DL (8.5-10.1); CARBON DIOXIDE 28 MMOL/L (21-32); CHLORIDE 107 MMOL/L (98-107); CREATININE 0.7 MG/DL (0.55-1.30); POTASSIUM 3.8 MMOL/L (3.5-5.1); SODIUM 139 MMOL/L (136-145)
[2017-10-22 08:00] VITALS: BP 120/65
[2017-10-22] MEDS: Dabigatran 150mg cap ORAL SCH ×2 (08:46→20:47)
[2017-10-22] MEDS: Metoprolol Tartrate 50mg tab ORAL SCH ×2 (08:47→20:47)
[2017-10-22] MEDS: Hydroxyurea 500mg cap ORAL SCH (08:47)
[2017-10-22] MEDS: Amiodarone 200mg tab ORAL SCH (08:48)
[2017-10-22] MEDS: Lisinopril 20mg tab ORAL SCH ×2 (08:48→20:48)
[2017-10-22] MEDS: Thiamine 100mg tab ORAL SCH (09:00)
[2017-10-22] MEDS ORDERED: Furosemide 40mg tab ORAL SCH (09:00)
[2017-10-22] MEDS: Tums 500mg ORAL SCH (09:00)
[2017-10-22] MEDS: cefTRIAXone 1 GM in D5W 55 ML IVPB SCH (09:35)
[2017-10-22 12:00] VITALS: BP 104/66
--- NOTE | 2017-10-22 12:55 | Consultation ---
History of Present Illness General Date patient seen: Oct 22, 2017 Chief Complaint: Generalized Weakness Present Illness HPI 77-year-old female with hx of Afib, KELVIN, COPD presented to ED for evaluation of weakness and persistent diarrhea for about one week now. Denies fevers or chills. States she feels weak with poor appetite. Denies chest pain or shortness of breath. Denies sick contacts or recent travel. No other aggravating relieving factors. Denies any other associated symptoms. she was found to be severely anemic and admitted for further work up. Allergies: Coded Allergies: No Known Allergies (Unverified , 04/30/16) Medication History Scheduled Amiodarone Hcl* (Cordarone*), 200 MG ORAL DAILY, (Reported) Calcium Carbonate ([id number]), 500 MG PO DAILY, (Reported) Capsaicin (Capsaicin), 1 APPLIC TP BID Dabigatran Etexilate Mesylate* (Pradaxa*), 150 MG PO Q12H, (Reported) Diphenhydramine Hcl (Banophen), 25 MG PO DAILY, (Reported) Furosemide* (Lasix*), 40 MG ORAL DAILY, (Reported) Gabapentin (Neurontin), 400 MG ORAL THREE TIMES A DAY Gabapentin* (Gabapentin*), 100 MG ORAL QAM AND 300MG PO QHS, (Reported) Hydroxyurea* (Hydrea*), 500 MG ORAL DAILY Lisinopril* (Zestril*), 20 MG ORAL BID, (Reported) Metoprolol Tartrate* (Metoprolol Tartrate*), 50 MG ORAL EVERY 12 HOURS, ( Reported) Potassium Chloride (Potassium Chloride), 20 MEQ ORAL DAILY, (Reported) Thiamine Hcl (Vitamin B1*), 100 MG ORAL DAILY, (Reported) Scheduled PRN Acetaminophen (Tylenol), 650 MG ORAL Q6H PRN for Prn Pain/Headache/Temp > 101 Clonidine Hcl* (Catapres*), 0.1 MG ORAL EVERY 8 HOURS PRN for SBP >170, ( Reported) Patient History Healthcare decision maker N Resuscitation status Full Code Advanced Directive on File Past Medical/Surgical History Past Medical/Surgical History: (1) Atrial fibrillation (2) CHF (congestive heart failure) (3) COPD (chronic obstructive pulmonary disease) (4) KELVIN (obstructive sleep apnea) Review of Systems Constitutional: Reports: malaise, weakness Gastrointestinal: Reports: diarrhea All Other Systems: negative except mentioned in HPI Physical Exam General Appearance: WD/WN Lines, tubes and drains: peripheral HEENT: normocephalic, anicteric Neck: non-tender, supple Respiratory/Chest: chest wall non-tender, lungs clear Breasts: no masses Cardiovascular/Chest: normal peripheral pulses Abdomen: normal bowel sounds Genitourinary/Rectal: normal genital exam Extremities: normal range of motion 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 Last 24 Hour Vital Signs Date Time Temp Pulse Resp B/P (MAP) Pulse Ox O2 Delivery O2 Flow Rate FiO2 10/22/17 12:00 98.0 61 20 104/66 (79) 99 98.0 10/22/17 08:48 120/65 10/22/17 08:47 65 120/65 10/22/17 08:00 98.2 65 20 120/65 (83) 95 98.2 10/22/17 08:00 Room Air 10/22/17 04:00 97.6 61 20 111/61 (78) 96 97.6 10/22/17 00:00 97.5 65 19 117/64 (81) 100 97.5 10/21/17 21:00 Room Air 10/21/17 20:32 61 117/64 10/21/17 20:31 117/64 10/21/17 20:00 98.2 61 19 117/64 (81) 100 98.2 10/21/17 16:33 Room Air 10/21/17 16:04 98.1 19 126/60 91 Room Air 98.1 10/21/17 15:32 98.1 19 126/60 91 Room Air 98.1 Intake and Output 10/21/17 10/22/17 19:00 07:00 Intake Total 360 ml Output Total 500 ml Balance 360 ml -500 ml Intake Oral 360 ml Output Urine Total 500 ml # Bowel Movements 2 Laboratory Tests Test 10/21/17 13:04 10/21/17 14:24 10/21/17 21:30 10/22/17 05:50 White Blood Count 5.9 K/UL (4.8-10.8) 4.5 K/UL (4.8-10.8) L Red Blood Count 3.08 M/UL (4.20-5.40) L 2.77 M/UL (4.20-5.40) L Hemoglobin 10.0 G/DL (12.0-16.0) L 9.1 G/DL (12.0-16.0) L Hematocrit 32.3 % (37.0-47.0) L 28.9 % (37.0-47.0) L Mean Corpuscular Volume 105 FL (80-99) H 104 FL (80-99) H Mean Corpuscular Hemoglobin 32.4 PG (27.0-31.0) H 32.9 PG (27.0-31.0) H Mean Corpuscular Hemoglobin Concent 31.0 G/DL (32.0-36.0) L 31.6 G/DL (32.0-36.0) L Red Cell Distribution Width 20.8 % (11.6-14.8) H 21.4 % (11.6-14.8) H Platelet Count 117 K/UL (150-450) L 87 K/UL (150-450) L Mean Platelet Volume 11.9 FL (6.5-10.1) H 12.5 FL (6.5-10.1) H Neutrophils (%) (Auto) % (45.0-75.0) % (45.0-75.0) Lymphocytes (%) (Auto) % (20.0-45.0) % (20.0-45.0) Monocytes (%) (Auto) % (1.0-10.0) % (1.0-10.0) Eosinophils (%) (Auto) % (0.0-3.0) % (0.0-3.0) Basophils (%) (Auto) % (0.0-2.0) % (0.0-2.0) Differential Total Cells Counted 100 100 Neutrophils % (Manual) 83 % (45-75) H 89 % (45-75) H Lymphocytes % (Manual) 12 % (20-45) L 9 % (20-45) L Monocytes % (Manual) 0 % (1-10) L 0 % (1-10) L Eosinophils % (Manual) 1 % (0-3) 0 % (0-3) Basophils % (Manual) 0 % (0-2) 0 % (0-2) Band Neutrophils 4 % (0-8) 2 % (0-8) Platelet Estimate Decreased L Decreased L Platelet Morphology See comment Normal Giant Platelets Rare Anisocytosis 1+ 2+ Ovalocytes 2+ 2+ Sodium Level 138 MMOL/L (136-145) 139 MMOL/L (136-145) Potassium Level 3.7 MMOL/L (3.5-5.1) 3.8 MMOL/L (3.5-5.1) Chloride Level 106 MMOL/L (98-107) 107 MMOL/L (98-107) Carbon Dioxide Level 26 MMOL/L (21-32) 28 MMOL/L (21-32) Anion Gap 6 mmol/L (5-15) 4 mmol/L (5-15) L Blood Urea Nitrogen 18 mg/dL (7-18) 11 mg/dL (7-18) Creatinine 0.8 MG/DL (0.55-1.30) 0.7 MG/DL (0.55-1.30) Estimat Glomerular Filtration Rate mL/min (>60) mL/min (>60) Glucose Level 110 MG/DL (74-106) H 85 MG/DL (74-106) Lactic Acid Level 1.50 mmol/L (0.4-2.0) Calcium Level 8.8 MG/DL (8.5-10.1) 8.6 MG/DL (8.5-10.1) Total Bilirubin 0.5 MG/DL (0.2-1.0) 0.5 MG/DL (0.2-1.0) Aspartate Amino Transf (AST/SGOT) 17 U/L (15-37) 12 U/L (15-37) L Alanine Aminotransferase (ALT/SGPT) 12 U/L (12-78) 10 U/L (12-78) L Alkaline Phosphatase 78 U/L (46-116) 70 U/L (46-116) Total Protein 6.7 G/DL (6.4-8.2) 6.2 G/DL (6.4-8.2) L Albumin 2.8 G/DL (3.4-5.0) L 2.6 G/DL (3.4-5.0) L Globulin 3.9 g/dL 3.6 g/dL Albumin/Globulin Ratio 0.7 (1.0-2.7) L Urine Color Pale yellow Urine Appearance Clear Urine pH 5 (4.5-8.0) Urine Specific [place] 1.015 (1.005-1.035) Urine Protein 1+ (NEGATIVE) H Urine Glucose (UA) Negative (NEGATIVE) Urine Ketones Negative (NEGATIVE) Urine Blood Negative (NEGATIVE) Urine Nitrite Negative (NEGATIVE) Urine Bilirubin Negative (NEGATIVE) Urine Urobilinogen Normal MG/DL (0.0-1.0) Urine Leukocyte Esterase 1+ (NEGATIVE) H Urine RBC 2-4 /HPF (0 - 2) H Urine WBC 5-10 /HPF (0 - 2) H Urine Squamous Epithelial Cells Few /LPF (NONE/OCC) Urine Bacteria Many /HPF (NONE) H Stool Occult Blood Negative (NEGATIVE) Macrocytosis 2+ Hemoglobin A1c 4.9 % (4.3-6.0) Magnesium Level 2.0 MG/DL (1.8-2.4) Microbiology Date/Time Source Procedure Growth Status 10/21/17 21:30 Stool Stool Culture Pending Resulted 10/21/17 21:30 Stool Clostridium difficile Toxin Assay - Final Resulted 10/21/17 14:24 Urine,Clean Catch Urine Culture - Preliminary Gram Negative Bacillus 1 Resulted Height (Feet): 5 Height (Inches): 3.00 Weight (Pounds): 146 Medications Current Medications Medications (Trade) Dose Ordered Sig/Escobar Route PRN Reason Start Time Stop Time Status Last Admin Dose Admin Acetaminophen (Tylenol) 650 mg Q4H PRN ORAL Mild Pain/Temp > 100.5 10/21/17 17:30 11/20/17 17:29 Amiodarone HCl (Cordarone) 200 mg DAILY ORAL 10/22/17 09:00 11/21/17 08:59 10/22/17 08:48 Calcium Carbonate (Tums) 500 mg DAILY ORAL 10/22/17 09:00 11/21/17 08:59 Ceftriaxone Sodium 1 gm/ Dextrose 55 ml @ 110 mls/hr DAILY IVPB 10/22/17 09:00 10/29/17 08:59 10/22/17 09:35 Clonidine HCl (Catapres Tab) 0.1 mg Q8H PRN ORAL For High Blood Pressure 10/21/17 17:30 11/20/17 17:29 Dabigatran (Pradaxa) 150 mg EVERY 12 HOURS ORAL 10/21/17 21:00 11/20/17 20:59 10/22/17 08:46 Diphenhydramine HCl (Benadryl) 25 mg DAILY ORAL 10/22/17 09:00 11/21/17 08:59 10/22/17 08:46 Furosemide (Lasix) 40 mg DAILY ORAL 10/22/17 09:00 11/21/17 08:59 10/22/17 08:47 Gabapentin (Neurontin) 400 mg THREE TIMES A DAY ORAL 10/21/17 18:00 11/20/17 17:59 10/22/17 08:48 Hydroxyurea (Hydrea) 500 mg DAILY ORAL 10/22/17 09:00 10/26/17 17:59 10/22/17 08:47 Lisinopril (Prinivil) 20 mg Q12HR ORAL 10/21/17 21:00 11/20/17 20:59 10/22/17 08:48 Metoprolol Tartrate (Lopressor) 50 mg Q12HR ORAL 10/21/17 21:00 11/20/17 20:59 10/22/17 08:47 Ondansetron HCl (Zofran ODT) 4 mg Q6H PRN ORAL Nausea & Vomiting 10/21/17 17:30 11/20/17 17:29 Potassium Chloride (K-Dur) 20 meq DAILY ORAL 10/22/17 09:00 11/21/17 08:59 10/22/17 08:47 Thiamine HCl (Vitamin B1) 100 mg DAILY ORAL 10/22/17 09:00 11/21/17 08:59 Assessment/Plan Problem List: (1) Anemia ICD Codes: D64.9 - Anemia, unspecified SNOMED: 233282258 (2) COPD (chronic obstructive pulmonary disease) ICD Codes: J44.9 - Chronic obstructive pulmonary disease, unspecified SNOMED: 95935791 (3) UTI (urinary tract infection) ICD Codes: N39.0 - Urinary tract infection, site not specified SNOMED: 25948799 (4) KELVIN (obstructive sleep apnea) ICD Codes: G47.33 - Obstructive sleep apnea (adult) (pediatric) SNOMED: 20389983 (5) CAD (coronary artery disease) ICD Codes: I25.10 - Atherosclerotic heart disease of [place] coronary artery without angina pectoris SNOMED: 04595790 (6) Atrial fibrillation ICD Codes: I48.91 - Unspecified atrial fibrillation SNOMED: 52016634 Assessment/Plan respiratory treatment anemia w/u titrate fio2 to sat of 92% cardiology evaluation symptomatic treatment check stool GI evaluation. Kelly Mejia MD Oct 22, 2017 12:55
--- NOTE | 2017-10-22 14:48 | Cardiology Report ---
APPROVED REPORT EKG Measurement Heart [id number] 270P [id number] atrial paced ventricualr sensed
[2017-10-22] MEDS ORDERED: NS 275ml ONE (15:14)
[2017-10-22] MEDS ORDERED: Tubing IV Secondary IV ONE (15:14)
--- NOTE | 2017-10-22 15:59 | Cardiac Electrophysiology PN ---
Subjective Subjective [id number] Objective Last 24 Hour Vital Signs Date Time Temp Pulse Resp B/P (MAP) Pulse Ox O2 Delivery O2 Flow Rate FiO2 10/22/17 12:00 98.0 61 20 104/66 (79) 99 98.0 10/22/17 08:48 120/65 10/22/17 08:47 65 120/65 10/22/17 08:00 98.2 65 20 120/65 (83) 95 98.2 10/22/17 08:00 Room Air 10/22/17 04:00 97.6 61 20 111/61 (78) 96 97.6 10/22/17 00:00 97.5 65 19 117/64 (81) 100 97.5 10/21/17 21:00 Room Air 10/21/17 20:32 61 117/64 10/21/17 20:31 117/64 10/21/17 20:00 98.2 61 19 117/64 (81) 100 98.2 10/21/17 16:33 Room Air 10/21/17 16:04 98.1 19 126/60 91 Room Air 98.1 Intake and Output 10/21/17 10/22/17 19:00 07:00 Intake Total 360 ml Output Total 500 ml Balance 360 ml -500 ml Intake Oral 360 ml Output Urine Total 500 ml # Bowel Movements 2 Laboratory Tests Test 10/21/17 21:30 10/22/17 05:50 Stool Occult Blood Negative (NEGATIVE) White Blood Count 4.5 K/UL (4.8-10.8) L Red Blood Count 2.77 M/UL (4.20-5.40) L Hemoglobin 9.1 G/DL (12.0-16.0) L Hematocrit 28.9 % (37.0-47.0) L Mean Corpuscular Volume 104 FL (80-99) H Mean Corpuscular Hemoglobin 32.9 PG (27.0-31.0) H Mean Corpuscular Hemoglobin Concent 31.6 G/DL (32.0-36.0) L Red Cell Distribution Width 21.4 % (11.6-14.8) H Platelet Count 87 K/UL (150-450) L Mean Platelet Volume 12.5 FL (6.5-10.1) H Neutrophils (%) (Auto) % (45.0-75.0) Lymphocytes (%) (Auto) % (20.0-45.0) Monocytes (%) (Auto) % (1.0-10.0) Eosinophils (%) (Auto) % (0.0-3.0) Basophils (%) (Auto) % (0.0-2.0) Differential Total Cells Counted 100 Neutrophils % (Manual) 89 % (45-75) H Lymphocytes % (Manual) 9 % (20-45) L Monocytes % (Manual) 0 % (1-10) L Eosinophils % (Manual) 0 % (0-3) Basophils % (Manual) 0 % (0-2) Band Neutrophils 2 % (0-8) Platelet Estimate Decreased L Platelet Morphology Normal Anisocytosis 2+ Macrocytosis 2+ Ovalocytes 2+ Sodium Level 139 MMOL/L (136-145) Potassium Level 3.8 MMOL/L (3.5-5.1) Chloride Level 107 MMOL/L (98-107) Carbon Dioxide Level 28 MMOL/L (21-32) Anion Gap 4 mmol/L (5-15) L Blood Urea Nitrogen 11 mg/dL (7-18) Creatinine 0.7 MG/DL (0.55-1.30) Estimat Glomerular Filtration Rate mL/min (>60) Glucose Level 85 MG/DL (74-106) Hemoglobin A1c 4.9 % (4.3-6.0) Calcium Level 8.6 MG/DL (8.5-10.1) Magnesium Level 2.0 MG/DL (1.8-2.4) Total Bilirubin 0.5 MG/DL (0.2-1.0) Aspartate Amino Transf (AST/SGOT) 12 U/L (15-37) L Alanine Aminotransferase (ALT/SGPT) 10 U/L (12-78) L Alkaline Phosphatase 70 U/L (46-116) Total Protein 6.2 G/DL (6.4-8.2) L Albumin 2.6 G/DL (3.4-5.0) L Globulin 3.6 g/dL Microbiology Date/Time Source Procedure Growth Status 10/21/17 21:30 Stool Stool Culture Pending Resulted 10/21/17 21:30 Stool Clostridium difficile Toxin Assay - Final Resulted 10/21/17 14:24 Urine,Clean Catch Urine Culture - Preliminary Gram Negative Bacillus 1 Resulted River Freitas MD Oct 22, 2017 15:58
[2017-10-22 16:00] VITALS: BP 99/58
--- NOTE | 2017-10-22 17:58 | Internal Med Progress Note ---
Subjective Date of Service: Oct 22, 2017 Physician Name EdwardsRoshan Attending Physician Antonio Adrian MD Current Medications Medications (Trade) Dose Ordered Sig/Escobar Route PRN Reason Start Time Stop Time Status Last Admin Dose Admin Acetaminophen (Tylenol) 650 mg Q4H PRN ORAL Mild Pain/Temp > 100.5 10/21/17 17:30 11/20/17 17:29 Amiodarone HCl (Cordarone) 200 mg DAILY ORAL 10/22/17 09:00 11/21/17 08:59 10/22/17 08:48 Calcium Carbonate (Tums) 500 mg DAILY ORAL 10/22/17 09:00 11/21/17 08:59 Ceftriaxone Sodium 1 gm/ Dextrose 55 ml @ 110 mls/hr DAILY IVPB 10/22/17 09:00 10/29/17 08:59 10/22/17 09:35 Clonidine HCl (Catapres Tab) 0.1 mg Q8H PRN ORAL For High Blood Pressure 10/21/17 17:30 11/20/17 17:29 Dabigatran (Pradaxa) 150 mg EVERY 12 HOURS ORAL 10/21/17 21:00 11/20/17 20:59 10/22/17 08:46 Diphenhydramine HCl (Benadryl) 25 mg DAILY ORAL 10/22/17 09:00 11/21/17 08:59 10/22/17 08:46 Gabapentin (Neurontin) 400 mg THREE TIMES A DAY ORAL 10/21/17 18:00 11/20/17 17:59 10/22/17 13:15 Hydroxyurea (Hydrea) 500 mg DAILY ORAL 10/22/17 09:00 10/26/17 17:59 10/22/17 08:47 Lisinopril (Prinivil) 20 mg Q12HR ORAL 10/21/17 21:00 11/20/17 20:59 10/22/17 08:48 Metoprolol Tartrate (Lopressor) 50 mg Q12HR ORAL 10/21/17 21:00 11/20/17 20:59 10/22/17 08:47 Ondansetron HCl (Zofran ODT) 4 mg Q6H PRN ORAL Nausea & Vomiting 10/21/17 17:30 11/20/17 17:29 Thiamine HCl (Vitamin B1) 100 mg DAILY ORAL 10/22/17 09:00 11/21/17 08:59 Allergies: Coded Allergies: No Known Allergies (Unverified , 04/30/16) ROS Limited/Unobtainable: No Constitutional: Reports: no symptoms HEENT: Reports: no symptoms Cardiovascular: Reports: no symptoms Respiratory: Reports: no symptoms Gastrointestinal/Abdominal: Reports: no symptoms Genitourinary: Reports: no symptoms Neurologic/Psychiatric: Reports: no symptoms Subjective 77 YO F admitted with diarrhea. Now UTI. Cover for Int Germán-Dr Adrian Objective Last Vital Signs Date Time Temp Pulse Resp B/P (MAP) Pulse Ox O2 Delivery O2 Flow Rate FiO2 10/22/17 16:00 99.5 60 20 99/58 (72) 96 99.5 10/22/17 08:00 Room Air General Appearance: WD/WN, no apparent distress, alert EENT: PERRL/EOMI, normal ENT inspection, TMs normal Neck: non-tender, normal alignment, supple, normal inspection Cardiovascular: normal peripheral pulses, normal rate, regular rhythm, no gallop/murmur, no JVD Respiratory/Chest: chest wall non-tender, lungs clear, normal breath sounds, no respiratory distress, no accessory muscle use Abdomen: normal bowel sounds, non tender, soft, no organomegaly, no mass Extremities: normal range of motion, non-tender 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, no motor/sensory deficits Skin: normal pigmentation, warm/dry Laboratory Tests Test 10/21/17 21:30 10/22/17 05:50 Stool Occult Blood Negative (NEGATIVE) White Blood Count 4.5 K/UL (4.8-10.8) L Red Blood Count 2.77 M/UL (4.20-5.40) L Hemoglobin 9.1 G/DL (12.0-16.0) L Hematocrit 28.9 % (37.0-47.0) L Mean Corpuscular Volume 104 FL (80-99) H Mean Corpuscular Hemoglobin 32.9 PG (27.0-31.0) H Mean Corpuscular Hemoglobin Concent 31.6 G/DL (32.0-36.0) L Red Cell Distribution Width 21.4 % (11.6-14.8) H Platelet Count 87 K/UL (150-450) L Mean Platelet Volume 12.5 FL (6.5-10.1) H Neutrophils (%) (Auto) % (45.0-75.0) Lymphocytes (%) (Auto) % (20.0-45.0) Monocytes (%) (Auto) % (1.0-10.0) Eosinophils (%) (Auto) % (0.0-3.0) Basophils (%) (Auto) % (0.0-2.0) Differential Total Cells Counted 100 Neutrophils % (Manual) 89 % (45-75) H Lymphocytes % (Manual) 9 % (20-45) L Monocytes % (Manual) 0 % (1-10) L Eosinophils % (Manual) 0 % (0-3) Basophils % (Manual) 0 % (0-2) Band Neutrophils 2 % (0-8) Platelet Estimate Decreased L Platelet Morphology Normal Anisocytosis 2+ Macrocytosis 2+ Ovalocytes 2+ Sodium Level 139 MMOL/L (136-145) Potassium Level 3.8 MMOL/L (3.5-5.1) Chloride Level 107 MMOL/L (98-107) Carbon Dioxide Level 28 MMOL/L (21-32) Anion Gap 4 mmol/L (5-15) L Blood Urea Nitrogen 11 mg/dL (7-18) Creatinine 0.7 MG/DL (0.55-1.30) Estimat Glomerular Filtration Rate mL/min (>60) Glucose Level 85 MG/DL (74-106) Hemoglobin A1c 4.9 % (4.3-6.0) Calcium Level 8.6 MG/DL (8.5-10.1) Magnesium Level 2.0 MG/DL (1.8-2.4) Total Bilirubin 0.5 MG/DL (0.2-1.0) Aspartate Amino Transf (AST/SGOT) 12 U/L (15-37) L Alanine Aminotransferase (ALT/SGPT) 10 U/L (12-78) L Alkaline Phosphatase 70 U/L (46-116) Total Protein 6.2 G/DL (6.4-8.2) L Albumin 2.6 G/DL (3.4-5.0) L Globulin 3.6 g/dL Microbiology Date/Time Source Procedure Growth Status 10/21/17 21:30 Stool Stool Culture Pending Resulted 10/21/17 21:30 Stool Clostridium difficile Toxin Assay - Final Resulted 10/21/17 14:24 Urine,Clean Catch Urine Culture - Preliminary Gram Negative Bacillus 1 Resulted Intake and Output 10/21/17 10/22/17 19:00 07:00 Intake Total 360 ml Output Total 500 ml Balance 360 ml -500 ml Intake Oral 360 ml Output Urine Total 500 ml # Bowel Movements 2 Assessment/Plan Problem List: (1) UTI (urinary tract infection) Assessment & Plan: await urine culture results. Continue rocephin for now (2) Diarrhea Assessment & Plan: await C.Diff culture (3) Atrial fibrillation Assessment & Plan: See cardiology note. Continue amiodarone (4) Polycythemia vera (5) CHF (congestive heart failure) (6) CAD (coronary artery disease) (7) Hypercholesterolemia Status: progressing Roshan Edwards MD Oct 22, 2017 17:58
[2017-10-22 19:37] VITALS: BP 103/60
--- NOTE | 2017-10-22 19:38 | Consultation ---
History of Present Illness General Date patient seen: Oct 22, 2017 Chief Complaint: Generalized Weakness Present Illness HPI 77-year-old female with hx of Afib, KELVIN, COPD presented to ED for evaluation of weakness and persistent diarrhea. the pt is weak and is forgetful/ The pt has episodes of anxiety/no si/hi Allergies: Coded Allergies: No Known Allergies (Unverified , 04/30/16) Medication History Scheduled Amiodarone Hcl* (Cordarone*), 200 MG ORAL DAILY, (Reported) Calcium Carbonate ([id number]), 500 MG PO DAILY, (Reported) Capsaicin (Capsaicin), 1 APPLIC TP BID Dabigatran Etexilate Mesylate* (Pradaxa*), 150 MG PO Q12H, (Reported) Diphenhydramine Hcl (Banophen), 25 MG PO DAILY, (Reported) Furosemide* (Lasix*), 40 MG ORAL DAILY, (Reported) Gabapentin (Neurontin), 400 MG ORAL THREE TIMES A DAY Gabapentin* (Gabapentin*), 100 MG ORAL QAM AND 300MG PO QHS, (Reported) Hydroxyurea* (Hydrea*), 500 MG ORAL DAILY Lisinopril* (Zestril*), 20 MG ORAL BID, (Reported) Metoprolol Tartrate* (Metoprolol Tartrate*), 50 MG ORAL EVERY 12 HOURS, ( Reported) Potassium Chloride (Potassium Chloride), 20 MEQ ORAL DAILY, (Reported) Thiamine Hcl (Vitamin B1*), 100 MG ORAL DAILY, (Reported) Scheduled PRN Acetaminophen (Tylenol), 650 MG ORAL Q6H PRN for Prn Pain/Headache/Temp > 101 Clonidine Hcl* (Catapres*), 0.1 MG ORAL EVERY 8 HOURS PRN for SBP >170, ( Reported) Patient History History Provided By: Patient, Medical Record, PMD Healthcare decision maker N Resuscitation status Full Code Advanced Directive on File Review of Systems Psychiatric: Reports: prior hx, anxiety, emotional problems Physical Exam General Appearance: no apparent distress, alert Neurologic: oriented x 3, responsive, depressed affect Last 24 Hour Vital Signs Date Time Temp Pulse Resp B/P (MAP) Pulse Ox O2 Delivery O2 Flow Rate FiO2 10/22/17 16:00 99.5 60 20 99/58 (72) 96 99.5 10/22/17 12:00 98.0 61 20 104/66 (79) 99 98.0 10/22/17 08:48 120/65 10/22/17 08:47 65 120/65 10/22/17 08:00 98.2 65 20 120/65 (83) 95 98.2 10/22/17 08:00 Room Air 10/22/17 04:00 97.6 61 20 111/61 (78) 96 97.6 10/22/17 00:00 97.5 65 19 117/64 (81) 100 97.5 10/21/17 21:00 Room Air 10/21/17 20:32 61 117/64 10/21/17 20:31 117/64 10/21/17 20:00 98.2 61 19 117/64 (81) 100 98.2 Intake and Output 10/21/17 10/22/17 19:00 07:00 Intake Total 360 ml Output Total 500 ml Balance 360 ml -500 ml Intake Oral 360 ml Output Urine Total 500 ml # Bowel Movements 2 Laboratory Tests Test 10/21/17 21:30 10/22/17 05:50 Stool Occult Blood Negative (NEGATIVE) White Blood Count 4.5 K/UL (4.8-10.8) L Red Blood Count 2.77 M/UL (4.20-5.40) L Hemoglobin 9.1 G/DL (12.0-16.0) L Hematocrit 28.9 % (37.0-47.0) L Mean Corpuscular Volume 104 FL (80-99) H Mean Corpuscular Hemoglobin 32.9 PG (27.0-31.0) H Mean Corpuscular Hemoglobin Concent 31.6 G/DL (32.0-36.0) L Red Cell Distribution Width 21.4 % (11.6-14.8) H Platelet Count 87 K/UL (150-450) L Mean Platelet Volume 12.5 FL (6.5-10.1) H Neutrophils (%) (Auto) % (45.0-75.0) Lymphocytes (%) (Auto) % (20.0-45.0) Monocytes (%) (Auto) % (1.0-10.0) Eosinophils (%) (Auto) % (0.0-3.0) Basophils (%) (Auto) % (0.0-2.0) Differential Total Cells Counted 100 Neutrophils % (Manual) 89 % (45-75) H Lymphocytes % (Manual) 9 % (20-45) L Monocytes % (Manual) 0 % (1-10) L Eosinophils % (Manual) 0 % (0-3) Basophils % (Manual) 0 % (0-2) Band Neutrophils 2 % (0-8) Platelet Estimate Decreased L Platelet Morphology Normal Anisocytosis 2+ Macrocytosis 2+ Ovalocytes 2+ Sodium Level 139 MMOL/L (136-145) Potassium Level 3.8 MMOL/L (3.5-5.1) Chloride Level 107 MMOL/L (98-107) Carbon Dioxide Level 28 MMOL/L (21-32) Anion Gap 4 mmol/L (5-15) L Blood Urea Nitrogen 11 mg/dL (7-18) Creatinine 0.7 MG/DL (0.55-1.30) Estimat Glomerular Filtration Rate mL/min (>60) Glucose Level 85 MG/DL (74-106) Hemoglobin A1c 4.9 % (4.3-6.0) Calcium Level 8.6 MG/DL (8.5-10.1) Magnesium Level 2.0 MG/DL (1.8-2.4) Total Bilirubin 0.5 MG/DL (0.2-1.0) Aspartate Amino Transf (AST/SGOT) 12 U/L (15-37) L Alanine Aminotransferase (ALT/SGPT) 10 U/L (12-78) L Alkaline Phosphatase 70 U/L (46-116) Total Protein 6.2 G/DL (6.4-8.2) L Albumin 2.6 G/DL (3.4-5.0) L Globulin 3.6 g/dL Microbiology Date/Time Source Procedure Growth Status 10/21/17 21:30 Stool Stool Culture Pending Resulted 10/21/17 21:30 Stool Clostridium difficile Toxin Assay - Final Resulted Height (Feet): 5 Height (Inches): 3.00 Weight (Pounds): 146 Medications Current Medications Medications (Trade) Dose Ordered Sig/Escobar Route PRN Reason Start Time Stop Time Status Last Admin Dose Admin Acetaminophen (Tylenol) 650 mg Q4H PRN ORAL Mild Pain/Temp > 100.5 10/21/17 17:30 11/20/17 17:29 Amiodarone HCl (Cordarone) 200 mg DAILY ORAL 10/22/17 09:00 11/21/17 08:59 10/22/17 08:48 Calcium Carbonate (Tums) 500 mg DAILY ORAL 10/22/17 09:00 11/21/17 08:59 Ceftriaxone Sodium 1 gm/ Dextrose 55 ml @ 110 mls/hr DAILY IVPB 10/22/17 09:00 10/29/17 08:59 10/22/17 09:35 Clonidine HCl (Catapres Tab) 0.1 mg Q8H PRN ORAL For High Blood Pressure 10/21/17 17:30 11/20/17 17:29 Dabigatran (Pradaxa) 150 mg EVERY 12 HOURS ORAL 10/21/17 21:00 11/20/17 20:59 10/22/17 08:46 Diphenhydramine HCl (Benadryl) 25 mg DAILY ORAL 10/22/17 09:00 11/21/17 08:59 10/22/17 08:46 Gabapentin (Neurontin) 400 mg THREE TIMES A DAY ORAL 10/21/17 18:00 11/20/17 17:59 10/22/17 13:15 Hydroxyurea (Hydrea) 500 mg DAILY ORAL 10/22/17 09:00 10/26/17 17:59 10/22/17 08:47 Lisinopril (Prinivil) 20 mg Q12HR ORAL 10/21/17 21:00 11/20/17 20:59 10/22/17 08:48 Metoprolol Tartrate (Lopressor) 50 mg Q12HR ORAL 10/21/17 21:00 11/20/17 20:59 10/22/17 08:47 Ondansetron HCl (Zofran ODT) 4 mg Q6H PRN ORAL Nausea & Vomiting 10/21/17 17:30 11/20/17 17:29 Thiamine HCl (Vitamin B1) 100 mg DAILY ORAL 10/22/17 09:00 11/21/17 08:59 Assessment/Plan Assessment/Plan Anxiety d/o cognitive impairment ativan prn provided cristina/Taran Cuevas MD Oct 22, 2017 19:38
--- NOTE | 2017-10-22 23:45 | Consultation ---
DATE OF CONSULTATION: 10/22/2017 CARDIOLOGY CONSULTATION CONSULTING PHYSICIAN: River Freitas M.D. REFERRING PHYSICIAN: Antonio Adrian M.D. REASON FOR CONSULTATION: Management of hypertension and atrial fibrillation. HISTORY OF PRESENT ILLNESS: The patient is a 77-year-old lady with history of hypertension, paroxysmal atrial fibrillation as well as coronary artery disease, prior myocardial infarction, hyperlipidemia, congestive heart failure as well as polycythemia vera and obstructive sleep apnea, came to the emergency room with one week of diarrhea and dizziness. The patient has been incontinent and has very watery stool, no blood in it. The patient was admitted for hydration. At the time of my evaluation, the patient denies any chest pain, palpitation, or shortness of breath, but . REVIEW OF SYSTEMS: Review of systems was negative other than what was mentioned in the history of present illness. PAST MEDICAL HISTORY: Hypertension, hyperlipidemia, atrial fibrillation, congestive heart failure, coronary artery disease, COPD and obstructive sleep apnea. The patient also has history of permanent pacemaker implantation. MEDICATIONS: Include amiodarone, clonidine, Pradaxa, Lasix, hydroxyurea, lisinopril, and metoprolol. ALLERGIES: She has no known drug allergies. SOCIAL HISTORY: She is single, lives with nephew. Does not smoke or drink alcohol. PHYSICAL EXAMINATION: VITAL SIGNS: Blood pressure of 130/70, pulse 70, respirations 18, and she is afebrile. HEAD AND NECK: Showed no JVD. LUNGS: Clear. CARDIOVASCULAR: Regular S1 and S2 with no gallop or murmur. The pacemaker in the left subclavian. ABDOMEN: Soft. EXTREMITIES: No pitting edema. LABORATORY DATA: White count of 4.5, hemoglobin 9.1, hematocrit 28.9, and platelet count was 87. Sodium is 139, potassium 3.8, BUN of 11, creatinine 0.7, and glucose of 85. ASSESSMENT AND PLAN: 1. Paroxysmal atrial fibrillation. Continue amiodarone, Toprol b.i.d., as well as Pradaxa. 2. Status post [employer] pacemaker implantation by hi, that was recently interrogated and showed normal function. 3. Hypertension. The patient was on Toprol 50 mg b.i.d. and lisinopril 20 mg b.i.d. 4. Lupus. 5. COPD. 6. Generalized weakness and diarrhea, currently on hydration as well as ceftriaxone. Thank you very much, Dr. Adrian, for allowing me to participate in the care of this patient. Please do not hesitate to contact me for any questions regarding my evaluation. River Freitas M.D. DR: AMELIA JOB#: [id number] CC:
[2017-10-23 00:28] VITALS: BP 99/59
[2017-10-23 04:22] VITALS: BP 117/67
[2017-10-23 06:32] LABS: HEMATOCRIT 30.4 % (37.0-47.0); HEMOGLOBIN 9.6 G/DL (12.0-16.0); MEAN CORPUSCULAR VOLUME 103 FL (80-99); PLATELET COUNT 94 K/UL (150-450); RED BLOOD COUNT 2.94 M/UL (4.20-5.40); RED CELL DISTRIBUTION WIDTH 20.7 % (11.6-14.8); WHITE BLOOD COUNT 4.7 K/UL (4.8-10.8)
[2017-10-23 06:33] LABS: INR 1.8 (0.9-1.1)
[2017-10-23 06:58] LABS: ANION GAP 6 mmol/L (5-15); BLOOD UREA NITROGEN 17 mg/dL (7-18); CALCIUM 8.7 MG/DL (8.5-10.1); CARBON DIOXIDE 29 MMOL/L (21-32); CHLORIDE 103 MMOL/L (98-107); CREATININE 0.8 MG/DL (0.55-1.30); POTASSIUM 3.4 MMOL/L (3.5-5.1); SODIUM 138 MMOL/L (136-145)
[2017-10-23 07:33] LABS: LACTATE DEHYDROGENASE 407 U/L (81-234)
[2017-10-23 08:00] VITALS: BP 98/55
[2017-10-23 08:42] LABS: % IRON SATURATION 32 % (15-50); IRON 62 ug/dL (50-175); TOTAL IRON BINDING CAPACITY 194 ug/dL (250-450)
[2017-10-23] MEDS: Amiodarone 200mg tab ORAL SCH (08:56)
[2017-10-23] MEDS: Tums 500mg ORAL SCH (08:56)
[2017-10-23] MEDS: Thiamine 100mg tab ORAL SCH (08:56)
[2017-10-23] MEDS: Hydroxyurea 500mg cap ORAL SCH (08:56)
[2017-10-23] MEDS: Metoprolol Tartrate 50mg tab ORAL SCH ×2 (08:56→21:16)
[2017-10-23] MEDS: Dabigatran 150mg cap ORAL SCH ×2 (08:56→21:16)
[2017-10-23] MEDS: Lisinopril 20mg tab ORAL SCH ×2 (08:57→21:15)
[2017-10-23] MEDS: cefTRIAXone 1 GM in D5W 55 ML IVPB SCH (08:58)
--- NOTE | 2017-10-23 11:59 | Internal Med Progress Note ---
Subjective Date of Service: Oct 23, 2017 Physician Name EdwardsRoshan Attending Physician Antonio Adrian MD Current Medications Medications (Trade) Dose Ordered Sig/Escobar Route PRN Reason Start Time Stop Time Status Last Admin Dose Admin Acetaminophen (Tylenol) 650 mg Q4H PRN ORAL Mild Pain/Temp > 100.5 10/21/17 17:30 11/20/17 17:29 Amiodarone HCl (Cordarone) 200 mg DAILY ORAL 10/22/17 09:00 11/21/17 08:59 10/23/17 08:56 Calcium Carbonate (Tums) 500 mg DAILY ORAL 10/22/17 09:00 11/21/17 08:59 10/23/17 08:56 Ceftriaxone Sodium 1 gm/ Dextrose 55 ml @ 110 mls/hr DAILY IVPB 10/22/17 09:00 10/29/17 08:59 10/23/17 08:58 Clonidine HCl (Catapres Tab) 0.1 mg Q8H PRN ORAL For High Blood Pressure 10/21/17 17:30 11/20/17 17:29 Dabigatran (Pradaxa) 150 mg EVERY 12 HOURS ORAL 10/21/17 21:00 11/20/17 20:59 10/23/17 08:56 Diphenhydramine HCl (Benadryl) 25 mg DAILY ORAL 10/22/17 09:00 11/21/17 08:59 10/23/17 08:56 Gabapentin (Neurontin) 400 mg THREE TIMES A DAY ORAL 10/21/17 18:00 11/20/17 17:59 10/23/17 08:56 Hydroxyurea (Hydrea) 500 mg DAILY ORAL 10/22/17 09:00 10/26/17 17:59 10/23/17 08:56 Lisinopril (Prinivil) 20 mg Q12HR ORAL 10/21/17 21:00 11/20/17 20:59 10/22/17 08:48 Metoprolol Tartrate (Lopressor) 50 mg Q12HR ORAL 10/21/17 21:00 11/20/17 20:59 10/22/17 08:47 Ondansetron HCl (Zofran ODT) 4 mg Q6H PRN ORAL Nausea & Vomiting 10/21/17 17:30 11/20/17 17:29 Potassium Chloride (K-Dur) 20 meq ONCE ORAL 10/23/17 12:00 10/23/17 13:00 Thiamine HCl (Vitamin B1) 100 mg DAILY ORAL 10/22/17 09:00 11/21/17 08:59 10/23/17 08:56 Allergies: Coded Allergies: No Known Allergies (Unverified , 04/30/16) Subjective 77 YO F admitted with diarrhea. Now UTI. Cover for Int Germán-Dr Adrian Objective Last Vital Signs Date Time Temp Pulse Resp B/P (MAP) Pulse Ox O2 Delivery O2 Flow Rate FiO2 10/23/17 08:57 98/55 10/23/17 08:56 61 10/23/17 08:00 Room Air 10/23/17 08:00 97.3 20 95 97.3 Laboratory Tests Test 10/23/17 05:40 White Blood Count 4.7 K/UL (4.8-10.8) L Red Blood Count 2.94 M/UL (4.20-5.40) L Hemoglobin 9.6 G/DL (12.0-16.0) L Hematocrit 30.4 % (37.0-47.0) L Mean Corpuscular Volume 103 FL (80-99) H Mean Corpuscular Hemoglobin 32.5 PG (27.0-31.0) H Mean Corpuscular Hemoglobin Concent 31.5 G/DL (32.0-36.0) L Red Cell Distribution Width 20.7 % (11.6-14.8) H Platelet Count 94 K/UL (150-450) L Mean Platelet Volume 10.2 FL (6.5-10.1) H Neutrophils (%) (Auto) % (45.0-75.0) Lymphocytes (%) (Auto) % (20.0-45.0) Monocytes (%) (Auto) % (1.0-10.0) Eosinophils (%) (Auto) % (0.0-3.0) Basophils (%) (Auto) % (0.0-2.0) Differential Total Cells Counted 100 Neutrophils % (Manual) 89 % (45-75) H Lymphocytes % (Manual) 9 % (20-45) L Monocytes % (Manual) 1 % (1-10) Eosinophils % (Manual) 0 % (0-3) Basophils % (Manual) 1 % (0-2) Band Neutrophils 0 % (0-8) Platelet Estimate Decreased L Platelet Morphology Normal Hypochromasia 2+ Anisocytosis 2+ Macrocytosis 1+ Erythrocyte Sedimentation Rate 86 MM/HR (0-30) H Reticulocyte Count 3.3 % (0.0-2.0) H Prothrombin Time 18.2 SEC (9.30-11.50) H Prothromb Time International Ratio 1.8 (0.9-1.1) H Activated Partial Thromboplast Time 62 SEC (23-33) H Sodium Level 138 MMOL/L (136-145) Potassium Level 3.4 MMOL/L (3.5-5.1) L Chloride Level 103 MMOL/L (98-107) Carbon Dioxide Level 29 MMOL/L (21-32) Anion Gap 6 mmol/L (5-15) Blood Urea Nitrogen 17 mg/dL (7-18) Creatinine 0.8 MG/DL (0.55-1.30) Estimat Glomerular Filtration Rate mL/min (>60) Glucose Level 88 MG/DL (74-106) Calcium Level 8.7 MG/DL (8.5-10.1) Iron Level 62 ug/dL (50-175) Total Iron Binding Capacity 194 ug/dL (250-450) L Percent Iron Saturation 32 % (15-50) Unsaturated Iron Binding 132 ug/dL (112-346) Lactate Dehydrogenase 407 U/L (81-234) H Carcinoembryonic Antigen Pending Vitamin B12 Level 111 PG/ML (193-986) L Folate 4.2 NG/ML (8.6-58.9) L Microbiology Date/Time Source Procedure Growth Status 10/21/17 13:07 Blood Blood Culture - Preliminary NO GROWTH AFTER 24 HOURS Resulted 10/21/17 13:04 Blood Blood Culture - Preliminary NO GROWTH AFTER 24 HOURS Resulted 10/21/17 21:30 Stool Stool Culture - Preliminary NORMAL FECAL JEF. Resulted 10/21/17 21:30 Stool Clostridium difficile Toxin Assay - Final Resulted 10/21/17 14:24 Urine,Clean Catch Urine Culture - Final Escherichia Coli Complete Intake and Output 10/22/17 10/23/17 19:00 07:00 Intake Total 600 ml Output Total 403 ml Balance 197 ml Intake Oral 600 ml Output Urine Total 403 ml # Voids 4 # Bowel Movements 1 Objective General Appearance: WD/WN, no apparent distress, alert EENT: PERRL/EOMI, normal ENT inspection, TMs normal Neck: non-tender, normal alignment, supple, normal inspection Cardiovascular: normal peripheral pulses, normal rate, regular rhythm, no gallop/murmur, no JVD Respiratory/Chest: chest wall non-tender, lungs clear, normal breath sounds, no respiratory distress, no accessory muscle use Abdomen: normal bowel sounds, non tender, soft, no organomegaly, no mass Extremities: normal range of motion, non-tender 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 Coli. Continue rocephin (2) Diarrhea Assessment & Plan: C.Diff = neg (3) Atrial fibrillation Assessment & Plan: See cardiology note. Continue amiodarone (4) Polycythemia vera (5) CHF (congestive heart failure) (6) CAD (coronary artery disease) (7) Hypercholesterolemia Status: progressing Assessment/Plan Discahrge planning Roshan Edwards MD Oct 23, 2017 11:59
[2017-10-23 12:00] VITALS: BP 99/49
--- NOTE | 2017-10-23 12:53 | Pulmonology Progress Note ---
Assessment/Plan Problems: (1) Anemia (2) COPD (chronic obstructive pulmonary disease) (3) UTI (urinary tract infection) (4) KELVIN (obstructive sleep apnea) (5) CAD (coronary artery disease) (6) Atrial fibrillation Assessment/Plan doing better no new symptoms heart rate controlled respiratory treatment titrate fio2 to sat of 92% Subjective ROS Limited/Unobtainable: No Constitutional: Reports: no symptoms HEENT: Repors: no symptoms Respiratory: Reports: no symptoms Allergies: Coded Allergies: No Known Allergies (Unverified , 04/30/16) Objective Last 24 Hour Vital Signs Date Time Temp Pulse Resp B/P (MAP) Pulse Ox O2 Delivery O2 Flow Rate FiO2 10/23/17 12:00 97.5 60 20 99/49 (66) 96 97.5 10/23/17 08:57 98/55 10/23/17 08:56 61 98/55 10/23/17 08:00 Room Air 10/23/17 08:00 97.3 61 20 98/55 (69) 95 97.3 10/23/17 04:22 97.3 60 17 117/67 (84) 96 97.3 10/23/17 00:28 97.7 61 15 99/59 (72) 96 97.7 10/22/17 21:00 Room Air 10/22/17 20:48 101/60 10/22/17 20:47 60 101/61 10/22/17 19:37 98.2 66 16 103/60 (74) 93 98.2 10/22/17 16:00 99.5 60 20 99/58 (72) 96 99.5 Intake and Output 10/22/17 10/23/17 19:00 07:00 Intake Total 600 ml Output Total 403 ml Balance 197 ml Intake Oral 600 ml Output Urine Total 403 ml # Voids 4 # Bowel Movements 1 General Appearance: WD/WN HEENT: normocephalic, atraumatic Respiratory/Chest: chest wall non-tender, lungs clear Cardiovascular: normal peripheral pulses, normal rate Abdomen: normal bowel sounds, soft, non tender Genitourinary: normal external genitalia Extremities: no clubbing Skin: no rash Microbiology Date/Time Source Procedure Growth Status 10/21/17 13:07 Blood Blood Culture - Preliminary NO GROWTH AFTER 24 HOURS Resulted 10/21/17 13:04 Blood Blood Culture - Preliminary NO GROWTH AFTER 24 HOURS Resulted 10/21/17 21:30 Stool Stool Culture - Preliminary NORMAL FECAL JEF. Resulted 10/21/17 21:30 Stool Clostridium difficile Toxin Assay - Final Resulted 10/21/17 14:24 Urine,Clean Catch Urine Culture - Final Escherichia Coli Complete Laboratory Tests 10/23/17 05:40: White Blood Count 4.7L, Red Blood Count 2.94L, Hemoglobin 9.6L, Hematocrit 30.4L , Mean Corpuscular Volume 103H, Mean Corpuscular Hemoglobin 32.5H, Mean Corpuscular Hemoglobin Concent 31.5L, Red Cell Distribution Width 20.7H, Platelet Count 94L, Mean Platelet Volume 10.2H, Neutrophils (%) (Auto) , Lymphocytes (%) (Auto) , Monocytes (%) (Auto) , Eosinophils (%) (Auto) , Basophils (%) (Auto) , Differential Total Cells Counted 100, Neutrophils % ( Manual) 89H, Lymphocytes % (Manual) 9L, Monocytes % (Manual) 1, Eosinophils % ( Manual) 0, Basophils % (Manual) 1, Band Neutrophils 0, Platelet Estimate DecreasedL, Platelet Morphology Normal, Hypochromasia 2+, Anisocytosis 2+, Macrocytosis 1+, Erythrocyte Sedimentation Rate 86H, Reticulocyte Count 3.3H, Prothrombin Time 18.2H, Prothromb Time International Ratio 1.8H, Activated Partial Thromboplast Time 62H, Sodium Level 138, Potassium Level 3.4L, Chloride Level 103, Carbon Dioxide Level 29, Anion Gap 6, Blood Urea Nitrogen 17, Creatinine 0.8, Estimat Glomerular Filtration Rate , Glucose Level 88, Calcium Level 8.7, Iron Level 62, Total Iron Binding Capacity 194L, Percent Iron Saturation 32, Unsaturated Iron Binding 132, Lactate Dehydrogenase 407H, Carcinoembryonic Antigen [Pending], Vitamin B12 Level 111L, Folate 4.2L Current Medications Medications (Trade) Dose Ordered Sig/Escobar Route PRN Reason Start Time Stop Time Status Last Admin Dose Admin Acetaminophen (Tylenol) 650 mg Q4H PRN ORAL Mild Pain/Temp > 100.5 10/21/17 17:30 11/20/17 17:29 Amiodarone HCl (Cordarone) 200 mg DAILY ORAL 10/22/17 09:00 11/21/17 08:59 10/23/17 08:56 Calcium Carbonate (Tums) 500 mg DAILY ORAL 10/22/17 09:00 11/21/17 08:59 10/23/17 08:56 Ceftriaxone Sodium 1 gm/ Dextrose 55 ml @ 110 mls/hr DAILY IVPB 10/22/17 09:00 10/29/17 08:59 10/23/17 08:58 Clonidine HCl (Catapres Tab) 0.1 mg Q8H PRN ORAL For High Blood Pressure 10/21/17 17:30 11/20/17 17:29 Dabigatran (Pradaxa) 150 mg EVERY 12 HOURS ORAL 10/21/17 21:00 11/20/17 20:59 10/23/17 08:56 Diphenhydramine HCl (Benadryl) 25 mg DAILY ORAL 10/22/17 09:00 11/21/17 08:59 10/23/17 08:56 Gabapentin (Neurontin) 400 mg THREE TIMES A DAY ORAL 10/21/17 18:00 11/20/17 17:59 10/23/17 08:56 Hydroxyurea (Hydrea) 500 mg DAILY ORAL 10/22/17 09:00 10/26/17 17:59 10/23/17 08:56 Lisinopril (Prinivil) 20 mg Q12HR ORAL 10/21/17 21:00 11/20/17 20:59 10/22/17 08:48 Metoprolol Tartrate (Lopressor) 50 mg Q12HR ORAL 10/21/17 21:00 11/20/17 20:59 10/22/17 08:47 Ondansetron HCl (Zofran ODT) 4 mg Q6H PRN ORAL Nausea & Vomiting 10/21/17 17:30 11/20/17 17:29 Thiamine HCl (Vitamin B1) 100 mg DAILY ORAL 10/22/17 09:00 11/21/17 08:59 10/23/17 08:56 Kelly Mejia MD Oct 23, 2017 12:53
--- NOTE | 2017-10-23 13:41 | Cardiac Electrophysiology PN ---
Assessment/Plan Assessment/Plan 1. Paroxysmal atrial fibrillation. Continue amiodarone, Toprol and Pradaxa. 2. Status post [employer] pacemaker implantation by me, that was recently interrogated and showed normal function. 3. Hypertension. The patient was on Toprol 50 mg b.i.d. and lisinopril 20 mg b.i.d. 4. Lupus. 5. COPD. 6. Generalized weakness and diarrhea, currently on hydration as well as ceftriaxone. Subjective Subjective Has less diarrhea No CP Objective Last 24 Hour Vital Signs Date Time Temp Pulse Resp B/P (MAP) Pulse Ox O2 Delivery O2 Flow Rate FiO2 10/23/17 12:00 97.5 60 20 99/49 (66) 96 97.5 10/23/17 08:57 98/55 10/23/17 08:56 61 98/55 10/23/17 08:00 Room Air 10/23/17 08:00 97.3 61 20 98/55 (69) 95 97.3 10/23/17 04:22 97.3 60 17 117/67 (84) 96 97.3 10/23/17 00:28 97.7 61 15 99/59 (72) 96 97.7 10/22/17 21:00 Room Air 10/22/17 20:48 101/60 10/22/17 20:47 60 101/61 10/22/17 19:37 98.2 66 16 103/60 (74) 93 98.2 10/22/17 16:00 99.5 60 20 99/58 (72) 96 99.5 Intake and Output 10/22/17 10/23/17 19:00 07:00 Intake Total 600 ml Output Total 403 ml Balance 197 ml Intake Oral 600 ml Output Urine Total 403 ml # Voids 4 # Bowel Movements 1 Laboratory Tests Test 10/23/17 05:40 White Blood Count 4.7 K/UL (4.8-10.8) L Red Blood Count 2.94 M/UL (4.20-5.40) L Hemoglobin 9.6 G/DL (12.0-16.0) L Hematocrit 30.4 % (37.0-47.0) L Mean Corpuscular Volume 103 FL (80-99) H Mean Corpuscular Hemoglobin 32.5 PG (27.0-31.0) H Mean Corpuscular Hemoglobin Concent 31.5 G/DL (32.0-36.0) L Red Cell Distribution Width 20.7 % (11.6-14.8) H Platelet Count 94 K/UL (150-450) L Mean Platelet Volume 10.2 FL (6.5-10.1) H Neutrophils (%) (Auto) % (45.0-75.0) Lymphocytes (%) (Auto) % (20.0-45.0) Monocytes (%) (Auto) % (1.0-10.0) Eosinophils (%) (Auto) % (0.0-3.0) Basophils (%) (Auto) % (0.0-2.0) Differential Total Cells Counted 100 Neutrophils % (Manual) 89 % (45-75) H Lymphocytes % (Manual) 9 % (20-45) L Monocytes % (Manual) 1 % (1-10) Eosinophils % (Manual) 0 % (0-3) Basophils % (Manual) 1 % (0-2) Band Neutrophils 0 % (0-8) Platelet Estimate Decreased L Platelet Morphology Normal Hypochromasia 2+ Anisocytosis 2+ Macrocytosis 1+ Erythrocyte Sedimentation Rate 86 MM/HR (0-30) H Reticulocyte Count 3.3 % (0.0-2.0) H Prothrombin Time 18.2 SEC (9.30-11.50) H Prothromb Time International Ratio 1.8 (0.9-1.1) H Activated Partial Thromboplast Time 62 SEC (23-33) H Sodium Level 138 MMOL/L (136-145) Potassium Level 3.4 MMOL/L (3.5-5.1) L Chloride Level 103 MMOL/L (98-107) Carbon Dioxide Level 29 MMOL/L (21-32) Anion Gap 6 mmol/L (5-15) Blood Urea Nitrogen 17 mg/dL (7-18) Creatinine 0.8 MG/DL (0.55-1.30) Estimat Glomerular Filtration Rate mL/min (>60) Glucose Level 88 MG/DL (74-106) Calcium Level 8.7 MG/DL (8.5-10.1) Iron Level 62 ug/dL (50-175) Total Iron Binding Capacity 194 ug/dL (250-450) L Percent Iron Saturation 32 % (15-50) Unsaturated Iron Binding 132 ug/dL (112-346) Lactate Dehydrogenase 407 U/L (81-234) H Carcinoembryonic Antigen Pending Vitamin B12 Level 111 PG/ML (193-986) L Folate 4.2 NG/ML (8.6-58.9) L Microbiology Date/Time Source Procedure Growth Status 10/21/17 13:07 Blood Blood Culture - Preliminary NO GROWTH AFTER 24 HOURS Resulted 10/21/17 13:04 Blood Blood Culture - Preliminary NO GROWTH AFTER 24 HOURS Resulted 10/21/17 21:30 Stool Stool Culture - Preliminary NORMAL FECAL JEF. Resulted 10/21/17 21:30 Stool Clostridium difficile Toxin Assay - Final Resulted 10/21/17 14:24 Urine,Clean Catch Urine Culture - Final Escherichia Coli Complete Objective HEAD AND NECK: Showed no JVD. LUNGS: Clear. CARDIOVASCULAR: Regular S1 and S2 with no gallop or murmur. The pacemaker in the left subclavian. ABDOMEN: Soft. EXTREMITIES: No pitting edema. River Freitas MD Oct 23, 2017 13:41
[2017-10-23 16:00] VITALS: BP 108/59
[2017-10-23 20:00] VITALS: BP 103/53
--- NOTE | 2017-10-23 20:04 | General Progress Note ---
Assessment/Plan Assessment/Plan Anxiety d/o cognitive impairment ativan prn provided ro/st Subjective Date patient seen: Oct 23, 2017 Neurologic/Psychiatric: Reports: anxiety, depressed, emotional problems Allergies: Coded Allergies: No Known Allergies (Unverified , 04/30/16) Objective Last 24 Hour Vital Signs Date Time Temp Pulse Resp B/P (MAP) Pulse Ox O2 Delivery O2 Flow Rate FiO2 10/23/17 16:00 97.1 63 20 108/59 (75) 96 97.1 10/23/17 12:00 97.5 60 20 99/49 (66) 96 97.5 10/23/17 08:57 98/55 10/23/17 08:56 61 98/55 10/23/17 08:00 Room Air 10/23/17 08:00 97.3 61 20 98/55 (69) 95 97.3 10/23/17 04:22 97.3 60 17 117/67 (84) 96 97.3 10/23/17 00:28 97.7 61 15 99/59 (72) 96 97.7 10/22/17 21:00 Room Air 10/22/17 20:48 101/60 10/22/17 20:47 60 101/61 Intake and Output 10/22/17 10/23/17 19:00 07:00 Intake Total 600 ml Output Total 403 ml Balance 197 ml Intake Oral 600 ml Output Urine Total 403 ml # Voids 4 # Bowel Movements 1 Laboratory Tests 10/23/17 05:40: White Blood Count 4.7L, Red Blood Count 2.94L, Hemoglobin 9.6L, Hematocrit 30.4L , Mean Corpuscular Volume 103H, Mean Corpuscular Hemoglobin 32.5H, Mean Corpuscular Hemoglobin Concent 31.5L, Red Cell Distribution Width 20.7H, Platelet Count 94L, Mean Platelet Volume 10.2H, Neutrophils (%) (Auto) , Lymphocytes (%) (Auto) , Monocytes (%) (Auto) , Eosinophils (%) (Auto) , Basophils (%) (Auto) , Differential Total Cells Counted 100, Neutrophils % ( Manual) 89H, Lymphocytes % (Manual) 9L, Monocytes % (Manual) 1, Eosinophils % ( Manual) 0, Basophils % (Manual) 1, Band Neutrophils 0, Platelet Estimate DecreasedL, Platelet Morphology Normal, Hypochromasia 2+, Anisocytosis 2+, Macrocytosis 1+, Erythrocyte Sedimentation Rate 86H, Reticulocyte Count 3.3H, Prothrombin Time 18.2H, Prothromb Time International Ratio 1.8H, Activated Partial Thromboplast Time 62H, Sodium Level 138, Potassium Level 3.4L, Chloride Level 103, Carbon Dioxide Level 29, Anion Gap 6, Blood Urea Nitrogen 17, Creatinine 0.8, Estimat Glomerular Filtration Rate , Glucose Level 88, Calcium Level 8.7, Iron Level 62, Total Iron Binding Capacity 194L, Percent Iron Saturation 32, Unsaturated Iron Binding 132, Lactate Dehydrogenase 407H, Carcinoembryonic Antigen [Pending], Vitamin B12 Level 111L, Folate 4.2L Height (Feet): 5 Height (Inches): 3.00 Weight (Pounds): 148 General Appearance: no apparent distress, alert Neurologic: depressed affect Taran Shaffer MD Oct 23, 2017 20:04
[2017-10-24] VITALS: BP 111/68
[2017-10-24 04:00] VITALS: BP 102/69
[2017-10-24 07:20] LABS: HEMATOCRIT 30.4 % (37.0-47.0); HEMOGLOBIN 9.8 G/DL (12.0-16.0); MEAN CORPUSCULAR VOLUME 103 FL (80-99); PLATELET COUNT 96 K/UL (150-450); RED BLOOD COUNT 2.95 M/UL (4.20-5.40); RED CELL DISTRIBUTION WIDTH 20.6 % (11.6-14.8); WHITE BLOOD COUNT 5.1 K/UL (4.8-10.8)
[2017-10-24 07:43] LABS: BLOOD UREA NITROGEN 17 mg/dL (7-18); CALCIUM 8.7 MG/DL (8.5-10.1); CHLORIDE 105 MMOL/L (98-107); CREATININE 0.9 MG/DL (0.55-1.30); POTASSIUM 4.1 MMOL/L (3.5-5.1); SODIUM 140 MMOL/L (136-145)
[2017-10-24 08:00] VITALS: BP 108/69
[2017-10-24] MEDS: cefTRIAXone 1 GM in D5W 55 ML IVPB SCH (08:27)
[2017-10-24] MEDS: Hydroxyurea 500mg cap ORAL SCH (08:27)
[2017-10-24] MEDS: Dabigatran 150mg cap ORAL SCH (08:27)
[2017-10-24] MEDS: Amiodarone 200mg tab ORAL SCH (08:28)
[2017-10-24] MEDS: Thiamine 100mg tab ORAL SCH (08:28)
[2017-10-24] MEDS: Tums 500mg ORAL SCH (08:28)
[2017-10-24] MEDS: Lisinopril 20mg tab ORAL SCH (08:28)
[2017-10-24] MEDS: Metoprolol Tartrate 50mg tab ORAL SCH (08:28)
[2017-10-24 10:04] LABS: ANION GAP 8 mmol/L (5-15); CARBON DIOXIDE 27 MMOL/L (21-32)
--- NOTE | 2017-10-24 10:39 | General Progress Note ---
Assessment/Plan Status: stable, progressing Assessment/Plan Anxiety d/o cognitive impairment ativan prn provided ro/st Subjective Date patient seen: Oct 24, 2017 Neurologic/Psychiatric: Reports: anxiety, depressed Allergies: Coded Allergies: No Known Allergies (Unverified , 04/30/16) Objective Last 24 Hour Vital Signs Date Time Temp Pulse Resp B/P (MAP) Pulse Ox O2 Delivery O2 Flow Rate FiO2 10/24/17 09:00 Room Air 10/24/17 08:28 60 108/69 10/24/17 08:28 108/69 10/24/17 08:00 98.1 60 19 108/69 (82) 100 98.1 10/24/17 04:00 97.5 61 20 102/69 (80) 100 97.5 10/24/17 00:00 97.6 77 20 111/68 (82) 97 97.6 10/23/17 21:16 63 103/53 10/23/17 21:15 103/53 10/23/17 21:00 Room Air 10/23/17 20:00 97.9 63 20 103/53 (70) 99 97.9 10/23/17 16:00 97.1 63 20 108/59 (75) 96 97.1 10/23/17 12:00 97.5 60 20 99/49 (66) 96 97.5 Intake and Output 10/23/17 10/24/17 19:00 07:00 Intake Total 480 ml 120 ml Balance 480 ml 120 ml Intake Oral 480 ml 120 ml # Voids 5 Laboratory Tests 10/24/17 06:15: White Blood Count 5.1, Red Blood Count 2.95L, Hemoglobin 9.8L, Hematocrit 30.4L , Mean Corpuscular Volume 103H, Mean Corpuscular Hemoglobin 33.4H, Mean Corpuscular Hemoglobin Concent 32.3, Red Cell Distribution Width 20.6H, Platelet Count 96L, Mean Platelet Volume 13.0H, Neutrophils (%) (Auto) , Lymphocytes (%) (Auto) , Monocytes (%) (Auto) , Eosinophils (%) (Auto) , Basophils (%) (Auto) , Differential Total Cells Counted 100, Neutrophils % ( Manual) 89H, Lymphocytes % (Manual) 6L, Monocytes % (Manual) 4, Eosinophils % ( Manual) 1, Basophils % (Manual) 0, Band Neutrophils 0, Platelet Estimate DecreasedL, Platelet Morphology , Giant Platelets 1+, Polychromasia 1+, Hypochromasia 1+, Anisocytosis 2+, Macrocytosis 2+, Sodium Level 140, Potassium Level 4.1, Chloride Level 105, Carbon Dioxide Level 27, Anion Gap 8, Blood Urea Nitrogen 17, Creatinine 0.9, Estimat Glomerular Filtration Rate , Glucose Level 91, Calcium Level 8.7 10/24/17 09:02: Stool Occult Blood [Pending] Height (Feet): 5 Height (Inches): 3.00 Weight (Pounds): 148 General Appearance: no apparent distress, alert Neurologic: responsive, depressed affect Taran Shaffre MD Oct 24, 2017 10:39
--- NOTE | 2017-10-24 10:54 | Cardiac Electrophysiology PN ---
Assessment/Plan Assessment/Plan 1. Paroxysmal atrial fibrillation. Continue amiodarone, Toprol and Pradaxa. 2. Status post [employer] pacemaker implantation with normal function. 3. Hypertension. On Toprol 50 mg b.i.d. and lisinopril 20 mg b.i.d. 4. Lupus. 5. COPD. 6. Generalized weakness and diarrhea, currently on hydration as well as ceftriaxone. OK to DC with me Subjective Subjective tool is now formed. No CP or SOB and wants to go home Objective Last 24 Hour Vital Signs Date Time Temp Pulse Resp B/P (MAP) Pulse Ox O2 Delivery O2 Flow Rate FiO2 10/24/17 09:00 Room Air 10/24/17 08:28 60 108/69 10/24/17 08:28 108/69 10/24/17 08:00 98.1 60 19 108/69 (82) 100 98.1 10/24/17 04:00 97.5 61 20 102/69 (80) 100 97.5 10/24/17 00:00 97.6 77 20 111/68 (82) 97 97.6 10/23/17 21:16 63 103/53 10/23/17 21:15 103/53 10/23/17 21:00 Room Air 10/23/17 20:00 97.9 63 20 103/53 (70) 99 97.9 10/23/17 16:00 97.1 63 20 108/59 (75) 96 97.1 10/23/17 12:00 97.5 60 20 99/49 (66) 96 97.5 Intake and Output 10/23/17 10/24/17 19:00 07:00 Intake Total 480 ml 120 ml Balance 480 ml 120 ml Intake Oral 480 ml 120 ml # Voids 5 Laboratory Tests Test 10/24/17 06:15 10/24/17 09:02 White Blood Count 5.1 K/UL (4.8-10.8) Red Blood Count 2.95 M/UL (4.20-5.40) L Hemoglobin 9.8 G/DL (12.0-16.0) L Hematocrit 30.4 % (37.0-47.0) L Mean Corpuscular Volume 103 FL (80-99) H Mean Corpuscular Hemoglobin 33.4 PG (27.0-31.0) H Mean Corpuscular Hemoglobin Concent 32.3 G/DL (32.0-36.0) Red Cell Distribution Width 20.6 % (11.6-14.8) H Platelet Count 96 K/UL (150-450) L Mean Platelet Volume 13.0 FL (6.5-10.1) H Neutrophils (%) (Auto) % (45.0-75.0) Lymphocytes (%) (Auto) % (20.0-45.0) Monocytes (%) (Auto) % (1.0-10.0) Eosinophils (%) (Auto) % (0.0-3.0) Basophils (%) (Auto) % (0.0-2.0) Differential Total Cells Counted 100 Neutrophils % (Manual) 89 % (45-75) H Lymphocytes % (Manual) 6 % (20-45) L Monocytes % (Manual) 4 % (1-10) Eosinophils % (Manual) 1 % (0-3) Basophils % (Manual) 0 % (0-2) Band Neutrophils 0 % (0-8) Platelet Estimate Decreased L Platelet Morphology Giant Platelets 1+ Polychromasia 1+ Hypochromasia 1+ Anisocytosis 2+ Macrocytosis 2+ Sodium Level 140 MMOL/L (136-145) Potassium Level 4.1 MMOL/L (3.5-5.1) Chloride Level 105 MMOL/L (98-107) Carbon Dioxide Level 27 MMOL/L (21-32) Anion Gap 8 mmol/L (5-15) Blood Urea Nitrogen 17 mg/dL (7-18) Creatinine 0.9 MG/DL (0.55-1.30) Estimat Glomerular Filtration Rate mL/min (>60) Glucose Level 91 MG/DL (74-106) Calcium Level 8.7 MG/DL (8.5-10.1) Stool Occult Blood Negative (NEGATIVE) Microbiology Date/Time Source Procedure Growth Status 10/21/17 13:07 Blood Blood Culture - Preliminary NO GROWTH AFTER 48 HOURS Resulted 10/21/17 13:04 Blood Blood Culture - Preliminary NO GROWTH AFTER 48 HOURS Resulted 10/21/17 21:30 Stool Stool Culture - Preliminary NORMAL FECAL JEF. Resulted 10/21/17 21:30 Stool Clostridium difficile Toxin Assay - Final Resulted 10/21/17 21:30 Stool Ova and Parasites - Final Complete 10/21/17 21:30 Stool Ova and Parasite Result 1 - Final Complete 10/21/17 14:24 Urine,Clean Catch Urine Culture - Final Escherichia Coli Complete Objective HEAD AND NECK: Showed no JVD. LUNGS: Clear. CARDIOVASCULAR: Regular S1 and S2 with no gallop or murmur. The pacemaker in the left subclavian. ABDOMEN: Soft. EXTREMITIES: No pitting edema. River Freitas MD Oct 24, 2017 10:54
[2017-10-24 12:00] VITALS: BP 103/69
[2017-10-24] MEDS ORDERED: CATAPRES0.1 MG ORAL (12:27)
[2017-10-24] MEDS ORDERED: LISINOPRIL20 MG ORAL (12:27)
[2017-10-24] MEDS ORDERED: GABAPENTIN400 MG ORAL (12:27)
[2017-10-24] MEDS ORDERED: CALCIUM CARBON500 M1 PO (12:27)
[2017-10-24] MEDS ORDERED: PRADAXA110 MG PO (12:27)
[2017-10-24] MEDS ORDERED: AMIODARONE HCL100 MG ORAL (12:27)
[2017-10-24] MEDS ORDERED: VITAMIN B-1100 MG ORAL (12:27)
[2017-10-24] MEDS ORDERED: FUROSEMIDE40 MG ORAL (12:27)
[2017-10-24] MEDS ORDERED: POTASSIUM CL 225 MEQ PO (12:27)
--- NOTE | 2017-10-24 13:19 | Pulmonology Progress Note ---
Assessment/Plan Problems: (1) Anemia (2) COPD (chronic obstructive pulmonary disease) (3) UTI (urinary tract infection) (4) KELVIN (obstructive sleep apnea) (5) CAD (coronary artery disease) (6) Atrial fibrillation Assessment/Plan doing better no new symptoms heart rate controlled respiratory treatment titrate fio2 to sat of 92% All medications and treatment were reviewed. Subjective ROS Limited/Unobtainable: No Constitutional: Reports: no symptoms HEENT: Repors: no symptoms Respiratory: Reports: no symptoms Allergies: Coded Allergies: No Known Allergies (Unverified , 04/30/16) Objective Last 24 Hour Vital Signs Date Time Temp Pulse Resp B/P (MAP) Pulse Ox O2 Delivery O2 Flow Rate FiO2 10/24/17 12:00 97.9 60 19 103/69 (80) 100 97.9 10/24/17 09:00 Room Air 10/24/17 08:28 60 108/69 10/24/17 08:28 108/69 10/24/17 08:00 98.1 60 19 108/69 (82) 100 98.1 10/24/17 04:00 97.5 61 20 102/69 (80) 100 97.5 10/24/17 00:00 97.6 77 20 111/68 (82) 97 97.6 10/23/17 21:16 63 103/53 10/23/17 21:15 103/53 10/23/17 21:00 Room Air 10/23/17 20:00 97.9 63 20 103/53 (70) 99 97.9 10/23/17 16:00 97.1 63 20 108/59 (75) 96 97.1 Intake and Output 10/23/17 10/24/17 19:00 07:00 Intake Total 480 ml 120 ml Balance 480 ml 120 ml Intake Oral 480 ml 120 ml # Voids 5 General Appearance: WD/WN HEENT: normocephalic Respiratory/Chest: chest wall non-tender, lungs clear Breasts: no masses Cardiovascular: normal peripheral pulses Abdomen: normal bowel sounds, soft, non tender Genitourinary: normal external genitalia Extremities: no cyanosis Skin: no rash 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 Resulted 10/21/17 21:30 Stool Clostridium difficile Toxin Assay - Final Resulted 10/21/17 21:30 Stool Ova and Parasites - Final Complete 10/21/17 21:30 Stool Ova and Parasite Result 1 - Final Complete 10/21/17 14:24 Urine,Clean Catch Urine Culture - Final Escherichia Coli Complete Laboratory Tests 10/24/17 06:15: White Blood Count 5.1, Red Blood Count 2.95L, Hemoglobin 9.8L, Hematocrit 30.4L , Mean Corpuscular Volume 103H, Mean Corpuscular Hemoglobin 33.4H, Mean Corpuscular Hemoglobin Concent 32.3, Red Cell Distribution Width 20.6H, Platelet Count 96L, Mean Platelet Volume 13.0H, Neutrophils (%) (Auto) , Lymphocytes (%) (Auto) , Monocytes (%) (Auto) , Eosinophils (%) (Auto) , Basophils (%) (Auto) , Differential Total Cells Counted 100, Neutrophils % ( Manual) 89H, Lymphocytes % (Manual) 6L, Monocytes % (Manual) 4, Eosinophils % ( Manual) 1, Basophils % (Manual) 0, Band Neutrophils 0, Platelet Estimate DecreasedL, Platelet Morphology , Giant Platelets 1+, Polychromasia 1+, Hypochromasia 1+, Anisocytosis 2+, Macrocytosis 2+, Sodium Level 140, Potassium Level 4.1, Chloride Level 105, Carbon Dioxide Level 27, Anion Gap 8, Blood Urea Nitrogen 17, Creatinine 0.9, Estimat Glomerular Filtration Rate , Glucose Level 91, Calcium Level 8.7 10/24/17 09:02: Stool Occult Blood Negative Current Medications Medications (Trade) Dose Ordered Sig/Escobar Route PRN Reason Start Time Stop Time Status Last Admin Dose Admin Acetaminophen (Tylenol) 650 mg Q4H PRN ORAL Mild Pain/Temp > 100.5 10/21/17 17:30 11/20/17 17:29 Amiodarone HCl (Cordarone) 200 mg DAILY ORAL 10/22/17 09:00 11/21/17 08:59 10/24/17 08:28 Calcium Carbonate (Tums) 500 mg DAILY ORAL 10/22/17 09:00 11/21/17 08:59 10/24/17 08:28 Ceftriaxone Sodium 1 gm/ Dextrose 55 ml @ 110 mls/hr DAILY IVPB 10/22/17 09:00 10/29/17 08:59 10/24/17 08:27 Clonidine HCl (Catapres Tab) 0.1 mg Q8H PRN ORAL For High Blood Pressure 10/21/17 17:30 11/20/17 17:29 Dabigatran (Pradaxa) 150 mg EVERY 12 HOURS ORAL 10/21/17 21:00 11/20/17 20:59 10/24/17 08:27 Diphenhydramine HCl (Benadryl) 25 mg DAILY ORAL 10/22/17 09:00 11/21/17 08:59 10/24/17 08:27 Gabapentin (Neurontin) 400 mg THREE TIMES A DAY ORAL 10/21/17 18:00 11/20/17 17:59 10/24/17 08:27 Hydroxyurea (Hydrea) 500 mg DAILY ORAL 10/22/17 09:00 10/26/17 17:59 10/24/17 08:27 Lisinopril (Prinivil) 20 mg Q12HR ORAL 10/21/17 21:00 11/20/17 20:59 10/24/17 08:28 Metoprolol Tartrate (Lopressor) 50 mg Q12HR ORAL 10/21/17 21:00 11/20/17 20:59 10/24/17 08:28 Ondansetron HCl (Zofran ODT) 4 mg Q6H PRN ORAL Nausea & Vomiting 10/21/17 17:30 11/20/17 17:29 Thiamine HCl (Vitamin B1) 100 mg DAILY ORAL 10/22/17 09:00 11/21/17 08:59 10/24/17 08:28 Kelly Mejia MD Oct 24, 2017 13:19
--- NOTE | 2017-10-24 16:56 | Internal Med Progress Note ---
Subjective Date of Service: Oct 24, 2017 Physician Name Roshan Edwards Attending Physician Antonio Adrian MD Allergies: Coded Allergies: No Known Allergies (Unverified , 04/30/16) ROS Limited/Unobtainable: No Constitutional: Reports: no symptoms HEENT: Reports: no symptoms Cardiovascular: Reports: no symptoms Respiratory: Reports: no symptoms Gastrointestinal/Abdominal: Reports: no symptoms Genitourinary: Reports: no symptoms Neurologic/Psychiatric: Reports: no symptoms Subjective 77 YO F admitted with diarrhea. Now UTI. Cover for Int Med-Dr Adrian Objective Last Vital Signs Date Time Temp Pulse Resp B/P (MAP) Pulse Ox O2 Delivery O2 Flow Rate FiO2 10/24/17 12:00 97.9 60 19 103/69 (80) 100 97.9 10/24/17 09:00 Room Air Laboratory Tests Test 10/24/17 06:15 10/24/17 09:02 White Blood Count 5.1 K/UL (4.8-10.8) Red Blood Count 2.95 M/UL (4.20-5.40) L Hemoglobin 9.8 G/DL (12.0-16.0) L Hematocrit 30.4 % (37.0-47.0) L Mean Corpuscular Volume 103 FL (80-99) H Mean Corpuscular Hemoglobin 33.4 PG (27.0-31.0) H Mean Corpuscular Hemoglobin Concent 32.3 G/DL (32.0-36.0) Red Cell Distribution Width 20.6 % (11.6-14.8) H Platelet Count 96 K/UL (150-450) L Mean Platelet Volume 13.0 FL (6.5-10.1) H Neutrophils (%) (Auto) % (45.0-75.0) Lymphocytes (%) (Auto) % (20.0-45.0) Monocytes (%) (Auto) % (1.0-10.0) Eosinophils (%) (Auto) % (0.0-3.0) Basophils (%) (Auto) % (0.0-2.0) Differential Total Cells Counted 100 Neutrophils % (Manual) 89 % (45-75) H Lymphocytes % (Manual) 6 % (20-45) L Monocytes % (Manual) 4 % (1-10) Eosinophils % (Manual) 1 % (0-3) Basophils % (Manual) 0 % (0-2) Band Neutrophils 0 % (0-8) Platelet Estimate Decreased L Platelet Morphology Giant Platelets 1+ Polychromasia 1+ Hypochromasia 1+ Anisocytosis 2+ Macrocytosis 2+ Sodium Level 140 MMOL/L (136-145) Potassium Level 4.1 MMOL/L (3.5-5.1) Chloride Level 105 MMOL/L (98-107) Carbon Dioxide Level 27 MMOL/L (21-32) Anion Gap 8 mmol/L (5-15) Blood Urea Nitrogen 17 mg/dL (7-18) Creatinine 0.9 MG/DL (0.55-1.30) Estimat Glomerular Filtration Rate mL/min (>60) Glucose Level 91 MG/DL (74-106) Calcium Level 8.7 MG/DL (8.5-10.1) Stool Occult Blood Negative (NEGATIVE) Microbiology Date/Time Source Procedure Growth Status 10/21/17 21:30 Stool Stool Culture - Preliminary NORMAL FECAL JEF. Resulted 10/21/17 21:30 Stool Clostridium difficile Toxin Assay - Final Resulted 10/21/17 21:30 Stool Ova and Parasites - Final Complete 10/21/17 21:30 Stool Ova and Parasite Result 1 - Final Complete Intake and Output 10/23/17 10/24/17 19:00 07:00 Intake Total 480 ml 120 ml Balance 480 ml 120 ml Intake Oral 480 ml 120 ml # Voids 5 Objective General Appearance: WD/WN, no apparent distress, alert EENT: PERRL/EOMI, normal ENT inspection, TMs normal Neck: non-tender, normal alignment, supple, normal inspection Cardiovascular: normal peripheral pulses, normal rate, regular rhythm, no gallop/murmur, no JVD Respiratory/Chest: chest wall non-tender, lungs clear, normal breath sounds, no respiratory distress, no accessory muscle use Abdomen: normal bowel sounds, non tender, soft, no organomegaly, no mass Extremities: normal range of motion, non-tender 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 Coli. Continue rocephin (2) Diarrhea Assessment & Plan: C.Diff = neg (3) Atrial fibrillation Assessment & Plan: See cardiology note. Continue amiodarone (4) Polycythemia vera (5) CHF (congestive heart failure) (6) CAD (coronary artery disease) (7) Hypercholesterolemia Assessment/Plan Discahrge home with [facility] today Roshan Edwards MD Oct 24, 2017 16:56
--- NOTE | 2017-10-25 08:26 | Discharge Summary ---
Discharge Summary Discharge Summary _ DATE OF ADMISSION: 10/21/2017 DATE OF DISCHARGE: 10/24/2017 CONSULTANTS: Dr. Kelly Shaffer BRIEF HOSPITAL COURSE: Patient is a 77-year-old white female, who presented with chief complaint of diarrhea and dizziness. History of present illness started a week prior to admission. She started to have diarrhea described as several bowel movements per day. Patient is incontinent of her bowels. Diarrhea was described to be watery. There was no blood in stool. She became very dizzy and presented to [facility] ER. There was no sick contacts nor recent travel. She has medical history significant for atrial fibrillation, polycythemia vera, hypertension, obstructive sleep apnea, coronary artery disease hypercholesterolemia and congestive heart failure. On evaluation at ED, vital signs were stable. Blood work did not show any leukocytoses. Electrolytes were normal. Urinalysis showed 1+ protein, 1+ leukocyte esterase, 5-10 WBC. Considering patient's age and persistence of symptoms, patient was admitted for evaluation of diarrhea possible, gastroenteritis and urinary tract infection. She was given IV hydration. She was started empirically on IV ceftriaxone pending culture results. Stool studies were made. Patient has paroxysmal atrial fibrillation. 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 She has history of high blood pressure, she was given lisinopril. She is status post [employer] pacemaker implantation, recent interrogation showed normal function. Patient had anxiety. She was given Ativan prn. She has history of COPD and sleep apnea. She was given respiratory treatments. Stool culture did not isolate any growth. C. difficile toxin was negative. Ova and parasite negative. Blood culture did not isolate any growth. Urine culture showed growth of Escherichia coli. Diarrhea resolved. She completed antibiotic treatment. She was tolerating diet well. She was cleared for discharge home with home health. FINAL DIAGNOSES: Diarrhea possibly secondary to acute gastroenteritis Escherichia coli UTI Atrial fibrillation status post [employer] pacemaker implantation Polycythemia vera Hypercholesterolemia Congestive heart failure Coronary artery disease COPD Obstructive sleep apnea Hypertension Lupus Anxiety disorder DISPOSITION: Patient was discharged home with home health. DISCHARGE MEDICATIONS: Refer to Discharge Medication List. DISCHARGE INSTRUCTIONS: Follow up within a week. I have been assigned to dictate discharge summary on this account, and I was not involved in the patient's management. Lee Ann Ibrahim NP Oct 25, 2017 08:26
== END 2017-10-24 15:00 | disposition home or self-care (01) | DRG 690 ==
LOC: EMR 13:05 → 4E 13:50 → EDBEDREQ 14:55 → 4E 10-22 07:30
DX: N39.0 Urinary tract infection, site not specified (principal); I11.0 Hypertensive heart disease with heart failure; I48.0 Paroxysmal atrial fibrillation; B96.20 Unspecified Escherichia coli [E. coli] as the cause of diseases classified elsewhere; K52.9 Noninfective gastroenteritis and colitis, unspecified; D45 Polycythemia vera; F09 Unspecified mental disorder due to known physiological condition; I25.10 Atherosclerotic heart disease of native coronary artery without angina pectoris; I25.2 Old myocardial infarction; E78.00 Pure hypercholesterolemia, unspecified; Z95.0 Presence of cardiac pacemaker; M32.9 Systemic lupus erythematosus, unspecified; F41.9 Anxiety disorder, unspecified; R53.1 Weakness
CPT/HCPCS: 36415; 80048; 80053; 81003; 82270; 82378; 82607; 82746; 83036; 83540; 83550; 83605; 83615; 83735; 85007; 85025; 85044; 85060; 85610; 85651; 85730; 87040; 87045; 87086; 87181; 87324; 93005; 96360; 99285; J8499

== ENCOUNTER 2018-02-05 10:33 | Inpatient (IN) | payer MEDICARE, OTHER ==
[~2018-02-05] VITALS: Ht 160 cm; Wt 70.8 kg
[~2018-02-05 10:33] MED LIST changes: +AMIODARONE HCL100 MG ORAL; +CALCIUM CARBON500 M1 PO; +GABAPENTIN400 MG ORAL; +POTASSIUM CL 225 MEQ PO; +PRADAXA110 MG PO; +VITAMIN B-1100 MG ORAL
[2018-02-05 10:53] VITALS: BP 104/52
[2018-02-05 11:44] LABS: HEMATOCRIT 33.6 % (37.0-47.0); HEMOGLOBIN 10.5 G/DL (12.0-16.0); MEAN CORPUSCULAR VOLUME 110 FL (80-99); PLATELET COUNT 115 K/UL (150-450); RED BLOOD COUNT 3.06 M/UL (4.20-5.40); RED CELL DISTRIBUTION WIDTH 21.6 % (11.6-14.8); WHITE BLOOD COUNT 9.3 K/UL (4.8-10.8)
--- NOTE | 2018-02-05 11:51 | Diagnostic Imaging Report ---
Indication: Altered mental status, pain Technique: Continuous helical CT scanning of the head was performed utilizing automated exposure control without intravenous contrast material. Axial and coronal reconstructions were obtained. Comparison: 01/29/2017 CT dose: Total DLP 1390.05 mGycm; CTDI vol 70.38 mGy Findings: There is no acute intracranial hemorrhage, mass effect or midline shift. The ventricles, cisterns and sulci are prominent consistent with atrophy. Periventricular and subcortical white matter hypoattenuation is seen, a nonspecific finding. Old lacunar infarcts of the bilateral basal ganglia again noted. Visualized mastoid air cells and paranasal sinuses are unremarkable. No focal lesions of the bony calvarium or soft tissues of the scalp are seen. Impression: No evidence of acute intracranial hemorrhage, mass effect or midline shift. MRI may be obtained for more sensitive evaluation as clinically indicated. Atrophy and nonspecific periventricular hypoattenuation suggestive of chronic ischemic microvascular changes. The CT scanner at [facility] is accredited by the [employer] and the scans are performed using protocols designed to limit radiation exposure to as low as reasonably achievable to attain images of sufficient resolution adequate for diagnostic evaluation.
[2018-02-05 11:57] LABS: INR 1.3 (0.9-1.1)
--- NOTE | 2018-02-05 12:09 | Diagnostic Imaging Report ---
Indication: Chest pain, shortness of breath Technique: XRAY Chest 1v Comparison: 01/29/2017 Findings: Stable cardiomegaly. Left-sided dual-lead pacemaker again noted with leads in similar position. There is interstitial prominence suggestive of mild congestive change. No definite focal airspace consolidation. No pleural effusion or pneumothorax. There are degenerative changes of the spine. No acute osseous normality. Impression: Cardiomegaly and evidence suggestive of mild interstitial congestion. Pacemaker in place.
[2018-02-05 12:10] LABS: ANION GAP 8 mmol/L (5-15); BLOOD UREA NITROGEN 16 mg/dL (7-18); CALCIUM 8.7 MG/DL (8.5-10.1); CARBON DIOXIDE 26 MMOL/L (21-32); CHLORIDE 101 MMOL/L (98-107); CREATININE 0.8 MG/DL (0.55-1.30); POTASSIUM 4.3 MMOL/L (3.5-5.1); SODIUM 134 MMOL/L (136-145)
[2018-02-05 12:25] LABS: ALANINE AMINOTRANSFERASE 13 U/L (12-78); ALBUMIN 2.7 G/DL (3.4-5.0); ALBUMIN/GLOBULIN RATIO 0.6 (1.0-2.7); ALKALINE PHOSPHATASE 82 U/L (46-116); ASPARTATE AMINO TRANSFERASE 21 U/L (15-37); BILIRUBIN,TOTAL 0.8 MG/DL (0.2-1.0); CKMB 0.5 NG/ML (0.0-3.6); CREATINE KINASE 62 U/L (26-308); PHOSPHORUS 3.2 MG/DL (2.5-4.9)
[2018-02-05 12:31] LABS: APPEARANCE,URINE CLEAR; BILIRUBIN, URINE NEGATIVE (NEGATIVE); COLOR,URINE PALE YELLOW; GLUCOSE, URINE (UA) NEGATIVE (NEGATIVE); KETONES,URINE NEGATIVE (NEGATIVE); LEUKOCYTE ESTERASE ,URINE 1+ (NEGATIVE); NITRITE,URINE NEGATIVE (NEGATIVE); PH,URINE 5 (4.5-8.0); PROTEIN,URINE 2+ (NEGATIVE); UROBILINOGEN,URINE NORMAL MG/DL (0.0-1.0)
[2018-02-05] MEDS ORDERED: Meclizine 25mg tab ORAL ONE (13:15)
[2018-02-05 13:30] VITALS: BP 112/53
[2018-02-05] MEDS ORDERED: cefTRIAXone 1 GM in NS 55 ML IVPB ONE (13:45)
[2018-02-05] MEDS ORDERED: Isovue-300 100ml vial INJ PRN (15:45)
[2018-02-05] MEDS ORDERED: DiphenhydrAMINE 50mg/ml Inj IV PRN (15:45)
[2018-02-05 16:00] VITALS: BP 130/63
--- NOTE | 2018-02-05 16:09 | History & Physical ---
History and Physical History & Physicial Antonio Adrian MD Feb 05, 2018 16:09
[2018-02-05] MEDS: Thiamine 100mg tab ORAL SCH (17:56)
[2018-02-05] MEDS: Amiodarone 200mg tab ORAL SCH (17:56)
[2018-02-05] MEDS: Hydroxyurea 500mg cap ORAL SCH (17:57)
[2018-02-05] MEDS ORDERED: Dabigatran 150mg cap ORAL SCH (18:00)
--- NOTE | 2018-02-05 19:45 | History and Physical Report ---
DATE OF ADMISSION: 02/05/2018 CHIEF COMPLAINT: Weakness, fatigue, fall and unsteady gait. HISTORY OF PRESENT ILLNESS: This is a 77-year-old very delightful female with past medical history significant for chronic atrial fibrillation, polycythemia vera, hypertension, obstructive sleep apnea, coronary artery disease, history of myocardial infarction in the past, dyslipidemia, congestive heart failure, status post pacemaker, and total abdominal hysterectomy, who presented to the hospital complaining about weakness, fatigue, and recurrent falls. She denies any head trauma. She said that she has nauseation, but no vomiting. Denies any loss of consciousness. Denies any double vision. Shortly after initial evaluation in the emergency, the patient was admitted to the hospital with weakness and fatigue, possible failure to thrive as well as nausea and abdominal pain, weight loss, possible occult malignancy. PAST MEDICAL HISTORY/PAST SURGICAL HISTORY: As above, history of atrial fibrillation, polycythemia vera, hypertension, obstructive sleep apnea, coronary artery disease, prior history of myocardial infarction, dyslipidemia, congestive heart failure, status post pacemaker, and total abdominal hysterectomy. MEDICATIONS: Medications at home is significant for amiodarone 200 mg daily, calcium carbonate 500 mg daily, clonidine 0.1 mg every 8 hours as needed, Pradaxa 150 mg twice a day, Benadryl 25 mg daily as needed, Lasix 40 mg daily, gabapentin 400 mg three times a day, hydroxyurea 500 mg daily, lisinopril 20 mg twice a day, metoprolol 50 mg twice a day, and potassium chloride 10 mEq daily. ALLERGIES: No known drug allergies. SOCIAL HISTORY: The patient denies any smoking, alcohol, or drugs. She has a far history of smoking over 20 years ago. She lives with her nephew. She denies any suicidal or homicidal ideation. FAMILY HISTORY: Noncontributory. REVIEW OF SYSTEMS: Mostly as above. Denies any dysuria, frequency, or hematuria. Complained about weakness and fatigue. Denies any hemoptysis or hematochezia. Denies any bright red blood per rectum. Denies any loss of consciousness. Denies any seizure activity. Complained about fall, but no head trauma. No neck trauma. Positive history of weight loss and poor appetite. PHYSICAL EXAMINATION: VITAL SIGNS: On admission from the ER is significant for temperature 99.1, pulse 67, respirations 20, and blood pressure initially was 94/61, repeat 104/52. GENERAL: The patient is awake and responsive, in no acute distress. HEAD AND NECK: Pupils are reactive to light. Extraocular movements are intact. Neck was supple. No JVD. LUNGS: Good air entry. No wheezing or rales. HEART: S1, S2. Regular rhythm. No murmur or gallops. Chest wall has a pacemaker on left side of chest. ABDOMEN: Soft, nondistended, and nontender. Positive bowel sounds. EXTREMITIES: No cyanosis, clubbing, or edema. MUSCULOSKELETAL: The patient has a dual chamber dual lead pacemaker on the left side of chest wall. NEUROLOGIC: Cranial nerves II through XII are grossly intact. Moves all four extremities. Gait was not assessed due to the patient's status. DIAGNOSTIC AND LABORATORY DATA: On admission from the ER, CT of the head was done showed cardiomegaly with evidence suggesting mild interstitial congestion. Pacemaker on left side chest wall. CT of the head was done noted to be no evidence of acute intracranial hemorrhage, mass effect, or midline shift. MRI may be obtained for more sensitivity. Laboratory on admission, sodium 134, potassium 4.3, chloride 101, bicarbonate 26, BUN 16, and creatinine 0.8. Glucose is 125. Lactic acid 2.8. Calcium is 8.7. Phosphorus is 3.2. Magnesium is 2.0. Total bilirubin of 0.8. Troponin 0.017. BNP 5349. Albumin is 2.7. Lipase is 39. PT 11, INR 1.3, and PTT 27. UA with few amorphic sedimentation, +1 blood, +2 protein, and few squamous cells, epithelial cells. EKG showed sinus rhythm with ventricular rate of 62. ASSESSMENT: 1. Dehydration and weakness. 2. Weight loss, nausea, and abdominal pain. 3. Chronic atrial fibrillation. 4. Polycythemia vera. 5. Thrombocytopenia. 6. Hypertension. 7. Obstructive sleep apnea. 8. Coronary artery disease. 9. Dyslipidemia. 10. Chronic systolic dysfunction. PLAN: 1. Admit the patient to medical/surgical. 2. We will follow up laboratory. 3. Gentle hydration. 4. Resume home medication. 5. Code status, Full Code. 6. DVT prophylaxis, the patient is already on Pradaxa. Antonio Adrian M.D. DR: ДМИТРИЙ JOB#: [id number] CC:
[2018-02-05 20:00] VITALS: BP 128/61
[2018-02-05] MEDS: Dabigatran 150mg cap ORAL SCH (22:06)
[2018-02-05] MEDS: Metoprolol Tartrate 50mg tab ORAL SCH (22:06)
[2018-02-06] VITALS: BP 137/75
[2018-02-06 04:00] VITALS: BP 108/55
[2018-02-06 07:09] LABS: INR 1.5 (0.9-1.1)
[2018-02-06 07:43] LABS: ALANINE AMINOTRANSFERASE 10 U/L (12-78); ALBUMIN 2.4 G/DL (3.4-5.0); ALBUMIN/GLOBULIN RATIO 0.6 (1.0-2.7); ALKALINE PHOSPHATASE 81 U/L (46-116); ANION GAP 8 mmol/L (5-15); ASPARTATE AMINO TRANSFERASE 13 U/L (15-37); BILIRUBIN,TOTAL 0.9 MG/DL (0.2-1.0); BLOOD UREA NITROGEN 15 mg/dL (7-18); CALCIUM 8.4 MG/DL (8.5-10.1); CARBON DIOXIDE 25 MMOL/L (21-32); CHLORIDE 104 MMOL/L (98-107); CHOLESTEROL 82 MG/DL (< 200); CREATININE 0.9 MG/DL (0.55-1.30); PHOSPHORUS 3.1 MG/DL (2.5-4.9); SODIUM 137 MMOL/L (136-145)
[2018-02-06 08:00] VITALS: BP 100/61
[2018-02-06] MEDS ORDERED: Lisinopril 20mg tab ORAL SCH (09:00)
[2018-02-06] MEDS: Metoprolol Tartrate 50mg tab ORAL SCH ×2 (09:00→21:00)
[2018-02-06] MEDS: Hydroxyurea 500mg cap ORAL SCH (09:26)
[2018-02-06] MEDS: Dabigatran 150mg cap ORAL SCH ×2 (09:26→22:13)
[2018-02-06] MEDS: Amiodarone 200mg tab ORAL SCH (09:27)
[2018-02-06] MEDS: Thiamine 100mg tab ORAL SCH (09:27)
[2018-02-06 12:00] VITALS: BP 74/47
[2018-02-06] MEDS ORDERED: Sodium Chloride 500ML 500 ML IV ONE ×2 (12:39→22:45)
--- NOTE | 2018-02-06 15:03 | Diagnostic Imaging Report ---
Indication: Abdominal pain, weight loss Technique: CT of the abdomen and pelvis utilizing automated exposure control with intravenous contrast. Venous scanning performed. Axial, sagittal and coronal reformats presented. CT dose: Total DLP 832.8 mGycm; CTDI vol 17.05 mGy Comparison: Noncontrast CT of the abdomen 04/08/2017; contrast-enhanced CT of the abdomen 10/04/2016 Findings: Cardiomegaly and pacemaker partially visualized. There are trace left and small right pleural effusions. There is adjacent compressive atelectasis in the bilateral lower lobes. There is suggestion of septal thickening with some perihilar airspace opacities which may be related to mild congestive changes. Calcified granuloma noted in the right lower lobe. Liver is borderline enlarged. Hepatic contour is smooth. No focal hepatic mass is appreciated on this single phase exam. Portal vein is patent. Gallbladder is unremarkable without CT evident gallstones or pericholecystic inflammatory change. There is no biliary ductal dilatation. Spleen is enlarged measuring approximately 14 cm in length. Septated well-circumscribed low-attenuation structure is again noted in the superior spleen measuring up to approximately 3 cm in diameter. It is without significant change compared to the prior contrast-enhanced exam of 10/04/2016. Adrenal glands unremarkable. Pancreas unremarkable. Kidneys enhance symmetrically. There is no contour deforming renal mass. There is no urinary tract stone or hydronephrosis. Bladder is unremarkable. The patient is status post hysterectomy. Ovaries are not identified raising question for prior bilateral salpingo-oophorectomy. Surgical clips noted in the retroperitoneum raising question for prior lymph node dissection however correlation with surgical history is recommended. There is no free intraperitoneal air or fluid. There is no evidence of bowel obstruction or definite inflammatory change in the mesentery. There is moderate stool burden in the distal colon. No appreciable focal colonic wall thickening however evaluation limited due to stool burden and lack of enteric contrast in the distal colon. There is diverticulosis without evidence to suggest acute diverticulitis. The appendix is not definitively visualized. No focal inflammatory stranding in the right lower quadrant suggest acute appendicitis. There is apparent thickening in the distal stomach (series 3 image #31) which may be exaggerated by underdistention. Correlation with endoscopy recommended. Abdominal aorta is normal in caliber with very mild atherosclerotic calcification. No pathologically enlarged lymphadenopathy identified. There are degenerative changes of the spine with vacuum disc phenomenon at multiple levels. There is unchanged minimal anterolisthesis of L5 on S1. No acute osseous abnormality identified. There is a sclerotic focus in the left iliac bone which most likely represents a bone island. Some calcifications are noted in the subcutaneous fat in the gluteal regions which may be sequela of prior subcutaneous medication injection. IMPRESSION: * Splenomegaly. * Well-circumscribed low-attenuation structure in the superior spleen most likely representing a cyst. This is stable in size and appearance compared to the prior contrast-enhanced exam of 10/04/2016. * Apparent thickening of the wall of the distal stomach which may be exaggerated due to underdistention however correlation with endoscopy recommended. * Status post hysterectomy and likely bilateral salpingo-oophorectomy. Multiple surgical clips noted in the retroperitoneum raising question for prior lymph node dissection. Correlate with surgical history. * Colonic diverticulosis without evidence suggest acute diverticulitis. * Cardiomegaly and pacemaker partially visualized. Findings raising question for mild congestive changes/pulmonary edema. * Trace left and small right pleural effusions with adjacent likely compressive atelectasis in the lower lobes. Additional findings as above. The CT scanner at [facility] is accredited by the [employer] and the scans are performed using protocols designed to limit radiation exposure to as low as reasonably achievable to attain images of sufficient resolution adequate for diagnostic evaluation.
--- NOTE | 2018-02-06 15:09 | Internal Med Progress Note ---
Subjective Physician Name Antonio Adrian Attending Physician Antonio Adrian MD Current Medications Medications (Trade) Dose Ordered Sig/Escobar Route PRN Reason Start Time Stop Time Status Last Admin Dose Admin Acetaminophen (Tylenol) 650 mg Q6H PRN ORAL Prn Pain/Headache/Temp > 101 02/05/18 15:45 03/07/18 15:44 02/06/18 09:27 Amiodarone HCl (Cordarone) 200 mg DAILY ORAL 02/05/18 15:45 03/07/18 15:44 02/06/18 09:27 Barium Sulfate (Readi-Cat 2) 450 ml NOW PRN ORAL Radiology Procedure 02/05/18 15:45 02/07/18 15:41 Calcium Carbonate (Os-Zeb) 1,250 mg DAILY ORAL 02/05/18 15:45 03/07/18 15:44 02/06/18 09:26 Clonidine HCl (Catapres Tab) 0.1 mg Q8H PRN ORAL SBP >170mmHg 02/05/18 15:45 03/07/18 15:44 Dabigatran (Pradaxa) 150 mg Q12HR ORAL 02/05/18 21:00 03/07/18 17:59 02/06/18 09:26 Dextrose (Dextrose 50%) 25 ml Q30M PRN IV Hypoglycemia 02/05/18 15:45 03/07/18 15:44 Dextrose (Dextrose 50%) 50 ml Q30M PRN IV Hypoglycemia 02/05/18 15:45 03/07/18 15:44 Diphenhydramine HCl (Benadryl) 25 mg Q4H PRN IV Itching 02/05/18 15:45 03/07/18 15:44 Gabapentin (Neurontin) 400 mg Q8HR ORAL 02/05/18 22:00 03/07/18 21:59 02/05/18 22:06 Hydroxyurea (Hydrea) 500 mg DAILY ORAL 02/05/18 18:00 02/10/18 17:59 02/06/18 09:26 Iopamidol (Isovue-300 100ml) 100 ml NOW PRN INJ Radiology Procedure 02/05/18 15:45 02/07/18 15:41 Lisinopril (Prinivil) 20 mg BID ORAL 02/06/18 09:00 03/08/18 08:59 Metoprolol Tartrate (Lopressor) 50 mg EVERY 12 HOURS ORAL 02/05/18 21:00 03/07/18 20:59 02/05/18 22:06 Sodium Chloride 1,000 ml @ 75 mls/hr [id number] IV 02/05/18 15:45 03/07/18 15:44 02/06/18 09:33 Thiamine HCl (Vitamin B1) 100 mg DAILY ORAL 02/05/18 15:45 03/07/18 15:44 02/06/18 09:27 Allergies: Coded Allergies: No Known Allergies (Unverified , 04/30/16) Subjective awake, alert, responsive, feeling weak and dizzy, Hypotensive with BP: 74/47. Objective Last Vital Signs Date Time Temp Pulse Resp B/P (MAP) Pulse Ox O2 Delivery O2 Flow Rate FiO2 02/06/18 12:34 108 02/06/18 12:00 97.9 24 74/47 (56) 97 02/06/18 08:10 Room Air Laboratory Tests Test 02/06/18 05:40 Prothrombin Time 15.3 SEC (9.30-11.50) H Prothromb Time International Ratio 1.5 (0.9-1.1) H Activated Partial Thromboplast Time 54 SEC (23-33) H Sodium Level 137 MMOL/L (136-145) Potassium Level 4.0 MMOL/L (3.5-5.1) Chloride Level 104 MMOL/L (98-107) Carbon Dioxide Level 25 MMOL/L (21-32) Anion Gap 8 mmol/L (5-15) Blood Urea Nitrogen 15 mg/dL (7-18) Creatinine 0.9 MG/DL (0.55-1.30) Estimat Glomerular Filtration Rate mL/min (>60) Glucose Level 86 MG/DL (74-106) Calcium Level 8.4 MG/DL (8.5-10.1) L Phosphorus Level 3.1 MG/DL (2.5-4.9) Magnesium Level 1.8 MG/DL (1.8-2.4) Total Bilirubin 0.9 MG/DL (0.2-1.0) Aspartate Amino Transf (AST/SGOT) 13 U/L (15-37) L Alanine Aminotransferase (ALT/SGPT) 10 U/L (12-78) L Alkaline Phosphatase 81 U/L (46-116) Troponin I 0.000 ng/mL (0.000-0.056) Total Protein 6.3 G/DL (6.4-8.2) L Albumin 2.4 G/DL (3.4-5.0) L Globulin 3.9 g/dL Albumin/Globulin Ratio 0.6 (1.0-2.7) L Cholesterol Level 82 MG/DL (< 200) Thyroid Stimulating Hormone (TSH) 2.171 uiU/mL (0.358-3.740) Microbiology Date/Time Source Procedure Growth Status 02/05/18 11:00 Nasal Nares Influenza Types A,B Antigen (DELL) - Final Complete Intake and Output 02/05/18 02/06/18 19:00 07:00 Intake Total 195 ml Balance 195 ml Intake Oral 120 ml IV Total 75 ml # Voids 1 # Bowel Movements 1 Objective GENERAL: The patient is awake and responsive, in no acute distress. HEAD AND NECK: Pupils are reactive to light. Extraocular movements are intact. Neck was supple. No JVD. LUNGS: Good air entry. No wheezing or rales. HEART: S1, S2. Regular rhythm. No murmur or gallops. Chest wall has a pacemaker on left side of chest. ABDOMEN: Soft, nondistended, and nontender. Positive bowel sounds. EXTREMITIES: No cyanosis, clubbing, or edema. MUSCULOSKELETAL: Motor intact 5/5. NEUROLOGIC: Cranial nerves II through XII are grossly intact. Moves all four extremities. Gait was not assessed due to the patient's status. Assessment/Plan Assessment/Plan 1. Dehydration and weakness, Hypotension. 2. Weight loss, nausea, and abdominal pain. 3. Chronic atrial fibrillation. 4. Polycythemia vera. 5. Thrombocytopenia. 6. Hypertension. 7. Obstructive sleep apnea. 8. Coronary artery disease. 9. Dyslipidemia. 10. Chronic systolic dysfunction. PLAN: 1. in Telemetry. 2. We will follow up laboratory. 3. IVF hydration, bolus. 4. Dr. Freitas and Dr. Kaiser consultations 5. Code status, Full Code. 6. DVT prophylaxis: Pradaxa. 7. CT abdomin and pelvic, 2D Echo 8. Cortisol level in AM. Digna Mckeon Payam MD Feb 06, 2018 15:08
--- NOTE | 2018-02-06 15:34 | Cardiac Electrophysiology PN ---
Subjective Subjective [id number] Objective Last 24 Hour Vital Signs Date Time Temp Pulse Resp B/P (MAP) Pulse Ox O2 Delivery O2 Flow Rate FiO2 02/06/18 12:34 108 02/06/18 12:00 97.9 117 24 74/47 (56) 97 02/06/18 09:57 97.2 02/06/18 09:00 81 100/61 02/06/18 09:00 100/61 02/06/18 08:10 Room Air 02/06/18 08:00 97.2 81 20 100/61 (74) 92 02/06/18 07:53 124 02/06/18 04:00 98.0 68 20 108/55 (72) 96 02/06/18 04:00 66 02/06/18 00:00 98.0 71 20 137/75 (95) 94 02/06/18 00:00 70 02/05/18 22:06 72 128/61 02/05/18 21:00 Room Air 02/05/18 20:00 99.8 67 20 128/61 (83) 94 02/05/18 20:00 72 02/05/18 16:00 97.7 73 20 130/63 (85) 94 Intake and Output 02/05/18 02/06/18 19:00 07:00 Intake Total 195 ml Balance 195 ml Intake Oral 120 ml IV Total 75 ml # Voids 1 # Bowel Movements 1 Laboratory Tests Test 02/06/18 05:40 Prothrombin Time 15.3 SEC (9.30-11.50) H Prothromb Time International Ratio 1.5 (0.9-1.1) H Activated Partial Thromboplast Time 54 SEC (23-33) H Sodium Level 137 MMOL/L (136-145) Potassium Level 4.0 MMOL/L (3.5-5.1) Chloride Level 104 MMOL/L (98-107) Carbon Dioxide Level 25 MMOL/L (21-32) Anion Gap 8 mmol/L (5-15) Blood Urea Nitrogen 15 mg/dL (7-18) Creatinine 0.9 MG/DL (0.55-1.30) Estimat Glomerular Filtration Rate mL/min (>60) Glucose Level 86 MG/DL (74-106) Calcium Level 8.4 MG/DL (8.5-10.1) L Phosphorus Level 3.1 MG/DL (2.5-4.9) Magnesium Level 1.8 MG/DL (1.8-2.4) Total Bilirubin 0.9 MG/DL (0.2-1.0) Aspartate Amino Transf (AST/SGOT) 13 U/L (15-37) L Alanine Aminotransferase (ALT/SGPT) 10 U/L (12-78) L Alkaline Phosphatase 81 U/L (46-116) Troponin I 0.000 ng/mL (0.000-0.056) Total Protein 6.3 G/DL (6.4-8.2) L Albumin 2.4 G/DL (3.4-5.0) L Globulin 3.9 g/dL Albumin/Globulin Ratio 0.6 (1.0-2.7) L Cholesterol Level 82 MG/DL (< 200) Thyroid Stimulating Hormone (TSH) 2.171 uiU/mL (0.358-3.740) Microbiology Date/Time Source Procedure Growth Status 02/05/18 11:00 Nasal Nares Influenza Types A,B Antigen (DELL) - Final Complete River Freitas MD Feb 06, 2018 15:34
[2018-02-06 16:00] VITALS: BP 75/51
--- NOTE | 2018-02-06 16:28 | GI Initial Consult Note ---
History of Present Illness General Date patient seen: Feb 06, 2018 Time patient seen: 16:28 Reason for Hospitalization: Dizziness Referring physician: LEIF MASCORRO Reason for Consultation: GASTRIC WALL THICKENING Present Illness HPI This is a 77-year-old very delightful female with past medical history significant for chronic atrial fibrillation, polycythemia vera, hypertension, obstructive sleep apnea, coronary artery disease, history of myocardial infarction in the past, dyslipidemia, congestive heart failure, status post pacemaker, and total abdominal hysterectomy, who presented to the hospital complaining about weakness , fatigue, and recurrent falls. She denies any head trauma. She said that she has nauseation, but no vomiting. Denies any loss of consciousness. Denies any double vision. Shortly after initial evaluation in the emergency, the patient was admitted to the hospital with weakness and fatigue, possible failure to thrive as well as nausea and abdominal pain, weight loss, possible occult malignancy. GI was consulted for abnormal distal stomach wall thickening as seen on recent CT scan. Initial HPI as noted above. Patient was seen, awake alert and oriented x4 no apparent distress, no apparent nausea vomiting or diarrhea. Labs reviewed indicate that the patient presents with macrocytic anemia, elevated lactate levels and hypoalbuminemia. Unknown history of endoscopic or colonoscopy at this time. Noted that the patient is on Pradaxa. Home Meds Active Scripts Acetaminophen (Tylenol) 325 Mg Tablet, 650 MG ORAL Q6H PRN for Prn Pain/Headache /Temp > 101 for 7 Days, #30 TAB 0 Refills Prov:ROBERT HARDY M.D. 03/14/17 Capsaicin (CAPSAICIN) 42.5 Gm Cream..g., 1 APPLIC TP BID for For Pain, #42.5 GM Prov:Phuong Rogel 08/15/16 Gabapentin (Neurontin) 300 Mg Capsule, 400 MG ORAL THREE TIMES A DAY for 30 Days , CAP Prov:Roshan Edwards MD 05/07/16 Hydroxyurea* (HYDREA*) 500 Mg Cap, 500 MG ORAL DAILY for 30 Days, CAP Prov:KENNEDI ACOSTA N.PDuy 09/08/14 Reported Medications Thiamine Hcl* (VITAMIN B-1*) 100 Mg Tablet, 100 MG ORAL DAILY, #30 TAB 0 Refills 10/24/17 Pot Chloride/Pot Bicarb/Cit Ac (POTASSIUM CL 25 MEQ TAB EFF) 25 Meq Tablet.eff, 20 MEQ PO DAILY, TAB 10/24/17 Lisinopril (LISINOPRIL*) 20 Mg Tablet, 20 MG ORAL BID, TAB 10/24/17 Gabapentin* (GABAPENTIN*) 400 Mg Capsule, 400 MG ORAL THREE TIMES A DAY, CAP 0 Refills 10/24/17 Furosemide* (LASIX*) 40 Mg Tablet, 40 MG ORAL DAILY, TAB 10/24/17 Dabigatran Etexilate Mesylate (Pradaxa) 110 Mg Capsule, 150 MG PO Q12HR, CAP 10/24/17 Clonidine Hcl* (CATAPRES*) 0.1 Mg Tablet, 0.1 MG ORAL EVERY 8 HOURS for if SBPgretaer than 170 mmhg, TAB 10/24/17 Calcium Carbonate (CALCIUM CARBONATE) 500 Mg Tablet, 500 MG PO DAILY, TAB 10/24/17 Amiodarone Hcl (AMIODARONE HCL) 100 Mg Tablet, 200 MG ORAL ilia, TAB 10/24/17 Diphenhydramine Hcl (BANOPHEN) 25 Mg Capsule, 25 MG PO DAILY, CAP 01/29/17 Potassium Chloride (POTASSIUM CHLORIDE) 10 Meq Tablet.er, 20 MEQ ORAL DAILY, # 30 TAB 0 Refills 04/30/16 Lisinopril* (ZESTRIL*) 20 Mg Tablet, 20 MG ORAL BID, TAB 04/30/16 Gabapentin* (GABAPENTIN*) 100 Mg Capsule, 100 MG ORAL QAM AND 300MG PO QHS, CAP 04/30/16 Metoprolol Tartrate* (METOPROLOL TARTRATE*) 50 Mg Tablet, 50 MG ORAL EVERY 12 HOURS, TAB 04/30/16 Clonidine Hcl* (CATAPRES*) 0.1 Mg Tablet, 0.1 MG ORAL EVERY 8 HOURS PRN for SBP >170, TAB 04/30/16 Furosemide* (LASIX*) 40 Mg Tablet, 40 MG ORAL DAILY, TAB 04/18/15 Thiamine Hcl (VITAMIN B1*) 100 Mg Tablet, 100 MG ORAL DAILY, TAB 07/10/13 Calcium Carbonate ([id number]) 500 Mg Tablet, 500 MG PO DAILY 11/18/12 Dabigatran Etexilate Mesylate* (PRADAXA*) 150 Mg Capsule, 150 MG PO Q12H, #20 CAP Take 1 capsule by mouth every 12 hours. 02/18/12 Amiodarone Hcl* (CORDARONE*) 200 Mg Tablet, 200 MG ORAL DAILY, TAB 02/18/12 Med list reviewed/reconciled: Yes Allergies: Coded Allergies: No Known Allergies (Unverified , 04/30/16) Patient History History Provided By: Patient, Medical Record PMH Narrative Hypertension, hyperlipidemia, atrial fibrillation, congestive heart failure, coronary artery disease, COPD and obstructive sleep apnea. The patient also has history of permanent pacemaker implantation. Social History: Denies: smoking, alcohol use, drug use, other Review of Systems All Other Systems: negative except mentioned in HPI Physical Exam Vital Signs Date Time Temp Pulse Resp B/P (MAP) Pulse Ox O2 Delivery O2 Flow Rate FiO2 02/05/18 10:39 99.1 67 20 94/61 92 Room Air Sp02 EP Interpretation: reviewed, normal Labs Laboratory Tests Test 02/06/18 05:40 Prothrombin Time 15.3 SEC (9.30-11.50) H Prothromb Time International Ratio 1.5 (0.9-1.1) H Activated Partial Thromboplast Time 54 SEC (23-33) H Sodium Level 137 MMOL/L (136-145) Potassium Level 4.0 MMOL/L (3.5-5.1) Chloride Level 104 MMOL/L (98-107) Carbon Dioxide Level 25 MMOL/L (21-32) Anion Gap 8 mmol/L (5-15) Blood Urea Nitrogen 15 mg/dL (7-18) Creatinine 0.9 MG/DL (0.55-1.30) Estimat Glomerular Filtration Rate mL/min (>60) Glucose Level 86 MG/DL (74-106) Calcium Level 8.4 MG/DL (8.5-10.1) L Phosphorus Level 3.1 MG/DL (2.5-4.9) Magnesium Level 1.8 MG/DL (1.8-2.4) Total Bilirubin 0.9 MG/DL (0.2-1.0) Aspartate Amino Transf (AST/SGOT) 13 U/L (15-37) L Alanine Aminotransferase (ALT/SGPT) 10 U/L (12-78) L Alkaline Phosphatase 81 U/L (46-116) Troponin I 0.000 ng/mL (0.000-0.056) Total Protein 6.3 G/DL (6.4-8.2) L Albumin 2.4 G/DL (3.4-5.0) L Globulin 3.9 g/dL Albumin/Globulin Ratio 0.6 (1.0-2.7) L Cholesterol Level 82 MG/DL (< 200) Thyroid Stimulating Hormone (TSH) 2.171 uiU/mL (0.358-3.740) General Appearance: well appearing, no apparent distress, alert Head: normocephalic EENT: PERRL/EOMI, normal ENT inspection Neck: supple Respiratory: normal breath sounds, no respiratory distress Cardiovascular: normal rate Gastrointestinal: normal inspection, non tender, soft, normal bowel sounds, non -distended Rectal: deferred Genitourinary: no CVA tenderness Musculoskeletal: normal inspection, back normal Neurologic: normal inspection, alert, oriented x3, responsive Psychiatric: normal inspection, judgement/insight normal, memory normal Skin: normal inspection, normal color, no rash, warm/dry, palpation normal, well hydrated Lymphatic: normal inspection, no adenopathy Current Medications Current Medications Medications (Trade) Dose Ordered Sig/Escobar Route PRN Reason Start Time Stop Time Status Last Admin Dose Admin Acetaminophen (Tylenol) 650 mg Q6H PRN ORAL Prn Pain/Headache/Temp > 101 02/05/18 15:45 03/07/18 15:44 02/06/18 09:27 Amiodarone HCl (Cordarone) 200 mg DAILY ORAL 02/05/18 15:45 03/07/18 15:44 02/06/18 09:27 Barium Sulfate (Readi-Cat 2) 450 ml NOW PRN ORAL Radiology Procedure 02/05/18 15:45 02/07/18 15:41 Calcium Carbonate (Os-Zeb) 1,250 mg DAILY ORAL 02/05/18 15:45 03/07/18 15:44 02/06/18 09:26 Clonidine HCl (Catapres Tab) 0.1 mg Q8H PRN ORAL SBP >170mmHg 02/05/18 15:45 03/07/18 15:44 Dabigatran (Pradaxa) 150 mg Q12HR ORAL 02/05/18 21:00 03/07/18 17:59 02/06/18 09:26 Dextrose (Dextrose 50%) 25 ml Q30M PRN IV Hypoglycemia 02/05/18 15:45 03/07/18 15:44 Dextrose (Dextrose 50%) 50 ml Q30M PRN IV Hypoglycemia 02/05/18 15:45 03/07/18 15:44 Diphenhydramine HCl (Benadryl) 25 mg Q4H PRN IV Itching 02/05/18 15:45 03/07/18 15:44 Gabapentin (Neurontin) 400 mg Q8HR ORAL 02/05/18 22:00 03/07/18 21:59 02/06/18 15:02 Hydroxyurea (Hydrea) 500 mg DAILY ORAL 02/05/18 18:00 02/10/18 17:59 02/06/18 09:26 Iopamidol (Isovue-300 100ml) 100 ml NOW PRN INJ Radiology Procedure 02/05/18 15:45 02/07/18 15:41 Metoprolol Tartrate (Lopressor) 50 mg EVERY 12 HOURS ORAL 02/05/18 21:00 03/07/18 20:59 02/05/18 22:06 Sodium Chloride 1,000 ml @ 75 mls/hr [id number] IV 02/05/18 15:45 03/07/18 15:44 02/06/18 09:33 Thiamine HCl (Vitamin B1) 100 mg DAILY ORAL 02/05/18 15:45 03/07/18 15:44 02/06/18 09:27 GI: Plan Problems: (1) Dehydration (2) Malnutrition (3) CHF (congestive heart failure) (4) Atrial fibrillation (5) Epigastric abdominal pain (6) Anemia (7) Generalized weakness (8) Failure to thrive Plan EGD scheduled for tomorrow. -N.p.o. at midnight -Hold blood thinners tonight and hold Pradaxa tomorrow morning. calorie count anemia work up OB stool r/o GI bleed monitor H&H, prn transfusions bowel regime ppi fu labs will follow with additional recommendations post procedure, possible colonoscopy r/o malignancy Discussed with Dr. Kaiser. Thank you for this patient referral, we will follow. The patient was seen and examined at bedside and all new and available data was reviewed in the patients chart. I agree with the above findings, impression and plan. (Patient seen earlier today. Signature stamp does not reflect patient encounter time.). - MD Brandy SequeiraBannerReji JIG WORKER Feb 06, 2018 16:28
--- NOTE | 2018-02-06 17:12 | Diagnostic Imaging Report ---
APPROVED REPORT CPT Code: 77686 Present Symptoms Comments: BILATERAL LEGS PAIN. BILATERAL: Imaging reveals a patent deep venous system bilaterally. There is no evidence of thrombus within the femoral, popliteal or tibial segments. The greater saphenous veins are also within normal limits. Doppler indicates normal spontaneous flow within these segments.
[2018-02-06 20:00] VITALS: BP 87/54
--- NOTE | 2018-02-06 20:00 | Consultation ---
DATE OF CONSULTATION: 02/06/2018 CARDIOLOGY CONSULTATION CONSULTING PHYSICIAN: River Freitas M.D. REFERRING PHYSICIAN: Antonio Adrian M.D. REASON FOR CONSULTATION: Management of hypotension, atrial fibrillation, and the patient's pacemaker. HISTORY OF PRESENT ILLNESS: The patient is a 77-year-old lady under my Cardiology care for many years with history of hypertension and history of [employer] pacemaker as well as paroxysmal atrial fibrillation, coronary artery disease, who has history of polycythemia vera, who presented to the hospital for weakness and fatigue and recurrent falls. The patient also was nauseous but did not vomit. The patient's blood pressure was low today, 70s. The patient was admitted and a Cardiology consultation was obtained for further evaluation and management. REVIEW OF SYSTEMS: Review of systems was negative other than what was mentioned in the history of present illness. PAST MEDICAL HISTORY: Hypertension, paroxysmal atrial fibrillation status post [employer] pacemaker, polycythemia vera, obstructive sleep apnea, coronary artery disease, prior [place], dyslipidemia, history of total abdominal hysterectomy. MEDICATIONS: Include amiodarone, clonidine, Pradaxa, Lasix, gabapentin, hydroxyurea, lisinopril, metoprolol, potassium chloride. ALLERGIES: She has no known drug allergies. SOCIAL HISTORY: She lives at home with her family. Does not smoke or drink alcohol. PHYSICAL EXAMINATION: VITAL SIGNS: Blood pressure of 74/47, pulse 117, respirations 20, and temperature 97.9. HEAD AND NECK: Showed no JVD. LUNGS: Clear. CARDIOVASCULAR: Regular S1 and S2 with no gallop. Soft systolic murmur. Pacemaker in the left subclavian. ABDOMEN: Soft. EXTREMITIES: No pitting edema. LABORATORY DATA: Her labs show white count of 9, hemoglobin 10.5, hematocrit of 33, and platelet count of 115. Sodium is 137, potassium 4.0, BUN of 15, creatinine 0.9. Troponin negative x2. ASSESSMENT AND PLAN: 1. Weakness and recurrent falls. The patient will be ruled out for myocardial infarction. Her EKG showed sinus rhythm with nonspecific ST-T wave abnormality and just left ventricular hypertrophy. We will get an echocardiogram to rule out for ejection fraction and wall motion abnormality. 2. Status post [employer] pacemaker. The pacemaker was interrogated in the office which sowed LV normal function. 3. Hypotension. Discontinue lisinopril. 4. Paroxysmal atrial fibrillation, in sinus rhythm on amiodarone. Continue metoprolol 50 b.i.d. if the blood pressure allows. 5. Generalized weakness likely from dehydration and hypotension. 6. History of coronary artery disease remains without any chest pain. The patient also on Pradaxa 150 b.i.d. for atrial fibrillation. 7. Polycythemia vera on hydroxyurea. Thank you very much, Dr. Adrian, for allowing me to participate in the care of this patient. Please do not hesitate to contact me for any questions regarding my evaluation. Sincerely, River Freitas M.D. DR: Donna JOB#: [id number] CC:
[2018-02-07] VITALS (11 sets, daily range): BP systolic 98–125; BP diastolic 51–68
[2018-02-07 05:56] LABS: HEMATOCRIT 27.1 % (37.0-47.0); HEMOGLOBIN 8.1 G/DL (12.0-16.0); MEAN CORPUSCULAR VOLUME 111 FL (80-99); PLATELET COUNT 90 K/UL (150-450); RED BLOOD COUNT 2.44 M/UL (4.20-5.40); RED CELL DISTRIBUTION WIDTH 20.2 % (11.6-14.8); WHITE BLOOD COUNT 6.5 K/UL (4.8-10.8)
[2018-02-07 05:59] LABS: INR 1.4 (0.9-1.1)
[2018-02-07 06:30] LABS: ANION GAP 8 mmol/L (5-15); BLOOD UREA NITROGEN 15 mg/dL (7-18); CALCIUM 7.8 MG/DL (8.5-10.1); CARBON DIOXIDE 22 MMOL/L (21-32); CHLORIDE 108 MMOL/L (98-107); CREATININE 0.8 MG/DL (0.55-1.30); POTASSIUM 3.9 MMOL/L (3.5-5.1); SODIUM 138 MMOL/L (136-145)
--- NOTE | 2018-02-07 08:08 | Anethesia Preoperative Eval ---
Anesthesia Pre-op PMH/ROS General Date of Evaluation: Feb 07, 2018 Time of Evaluation: 08:08 Anesthesiologist: sachi ASA Score: ASA 4 Mallampati Score Class I : Soft palate, uvula, fauces, pillars visible Class II: Soft palate, uvula, fauces visible Class III: Soft palate, base of uvula visible Class IV: Only hard plate visible Mallampati Classification: Class III Surgeon: kelley Diagnosis: anemia, abdominal pain Surgical Procedure: egd Anesthesia History: none Social History: smoking - nonsmoker Family History: no anesthesia problems Allergies: Coded Allergies: No Known Allergies (Unverified , 04/30/16) Medications: see eMAR Patient NPO?: Yes Past Medical History Cardiovascular: Reports: HTN, CAD, MS, arrhythmia, other - pacemaker, acs Pulmonary: Reports: COPD, KELVIN Gastrointestinal/Genitourinary: Reports: GERD, other - uti, malnutrition, Neurologic/Psychiatric: Reports: CVA, TIA, other - ftt, peripheral neuropathy, Hematology/Immune: Reports: anemia, other - jael infection Musculoskeletal/Integumentary: Reports: OA Other: obesity Anesthesia Pre-op Phys. Exam Physician Exam Last Vital Signs Date Time Temp Pulse Resp B/P (MAP) Pulse Ox O2 Delivery O2 Flow Rate FiO2 02/07/18 04:00 88 02/07/18 04:00 97.5 18 105/60 (75) 96 02/06/18 21:00 Room Air Anesthesia Pre-op A/P Labs Hematology Test 02/07/18 05:30 White Blood Count 6.5 K/UL (4.8-10.8) Red Blood Count 2.44 M/UL (4.20-5.40) L Hemoglobin 8.1 G/DL (12.0-16.0) L Hematocrit 27.1 % (37.0-47.0) L Mean Corpuscular Volume 111 FL (80-99) H Mean Corpuscular Hemoglobin 33.4 PG (27.0-31.0) H Mean Corpuscular Hemoglobin Concent 30.0 G/DL (32.0-36.0) L Red Cell Distribution Width 20.2 % (11.6-14.8) H Platelet Count 90 K/UL (150-450) L Mean Platelet Volume 10.4 FL (6.5-10.1) H Neutrophils (%) (Auto) % (45.0-75.0) Lymphocytes (%) (Auto) % (20.0-45.0) Monocytes (%) (Auto) % (1.0-10.0) Eosinophils (%) (Auto) % (0.0-3.0) Basophils (%) (Auto) % (0.0-2.0) Neutrophils % (Manual) Pending Lymphocytes % (Manual) Pending Platelet Estimate Pending Platelet Morphology Pending Coagulation Test 02/07/18 05:30 Prothrombin Time 14.8 SEC (9.30-11.50) H Prothromb Time International Ratio 1.4 (0.9-1.1) H Activated Partial Thromboplast Time 46 SEC (23-33) H Chemistry Test 02/07/18 05:30 Sodium Level 138 MMOL/L (136-145) Potassium Level 3.9 MMOL/L (3.5-5.1) Chloride Level 108 MMOL/L (98-107) H Carbon Dioxide Level 22 MMOL/L (21-32) Anion Gap 8 mmol/L (5-15) Blood Urea Nitrogen 15 mg/dL (7-18) Creatinine 0.8 MG/DL (0.55-1.30) Estimat Glomerular Filtration Rate mL/min (>60) Glucose Level 87 MG/DL (74-106) Calcium Level 7.8 MG/DL (8.5-10.1) L Magnesium Level 1.9 MG/DL (1.8-2.4) Troponin I 0.017 ng/mL (0.000-0.056) Cortisol AM Sample Pending Risk Assessment & Plan Assessment: [email or web address] Plan: Etelvina Lopez MD Feb 07, 2018 08:08
[2018-02-07] MEDS ORDERED: DiphenhydrAMINE 50mg/ml Inj IVP PRN ×2 (08:15→11:45)
[2018-02-07] MEDS ORDERED: Atropine Inj 1mg/10ml Syr IV PRN ×2 (08:15→11:45)
[2018-02-07] MEDS ORDERED: Midazolam 2mg/2ml Inj IVP PRN ×2 (08:15→11:45)
[2018-02-07] MEDS ORDERED: fentaNYL 100 mcg/2 mL IV PRN ×2 (08:15→11:45)
[2018-02-07] MEDS: Thiamine 100mg tab ORAL SCH (08:21)
[2018-02-07] MEDS: Amiodarone 200mg tab ORAL SCH (08:21)
[2018-02-07] MEDS: Hydroxyurea 500mg cap ORAL SCH (08:21)
[2018-02-07] MEDS: Dabigatran 150mg cap ORAL SCH ×2 (08:37→21:34)
[2018-02-07] MEDS: Metoprolol Tartrate 50mg tab ORAL SCH ×2 (08:52→21:00)
--- NOTE | 2018-02-07 09:30 | Pre-Procedure Note/Attestation ---
Pre-Procedure Note/Attestation Complete Prior to Procedure Planned Procedure: not applicable Procedure Narrative: EGD Indications for Procedure Pre-Operative Diagnosis: gastric wall thickening Attestation I attest that I discussed the nature of the procedure; its benefits; risks and complications; and alternatives (and the risks and benefits of such alternatives ), prior to the procedure, with the patient (or the patient's legal sales support representative). I attest that, if there was a reasonable possibility of needing a blood transfusion, the patient (or the patient's legal sales support representative) was given the [facility] standardized written summary, pursuant to the Rufus Yuridia Blood Safety Act ([place] Health and Safety Code # 1645, as amended). I attest that I re-evaluated the patient just prior to the surgery and that there has been no change in the patient's H&P, except as documented below: Blair Kaiser MD Feb 07, 2018 09:30
[2018-02-07] MEDS ORDERED: Lidocaine 1% MPF 10mg/ml 5ml ONE (10:30)
[2018-02-07] MEDS ORDERED: Propofol 200mg/20ml IV ONE (10:30)
[2018-02-07] MEDS ORDERED: NS 500ML IVPB ONE (10:40)
--- NOTE | 2018-02-07 10:55 | Endoscopy Procedure Note ---
Endoscopy Procedure Note General Indication for Procedure: gastric wall thickening Procedures Performed: EGD Operative Findings/Diagnosis: gastritis Specimen: yes Pt Tolerated Procedure Well: Yes Estimated Blood Loss: none Anesthesia Anesthesiologist: sachi Anesthesia: MAC Inserted Devices Implant(s) used?: No GI Core Measures 50 yrs or older w/o bx or poly: Not Applicable 10yrs. F/U not recommended: Not Applicable Blair Kaiser MD Feb 07, 2018 10:55
--- NOTE | 2018-02-07 11:30 | Anethesia Preoperative Eval ---
Anesthesia Pre-op PMH/ROS General Date of Evaluation: Feb 07, 2018 Time of Evaluation: 10:33 Anesthesiologist: sachi ASA Score: ASA 4 Mallampati Score Class I : Soft palate, uvula, fauces, pillars visible Class II: Soft palate, uvula, fauces visible Class III: Soft palate, base of uvula visible Class IV: Only hard plate visible Mallampati Classification: Class II Surgeon: kelley Diagnosis: abdominal pain, anemia Surgical Procedure: egd/bx Anesthesia History: none Social History: smoking - nonsmoker Family History: no anesthesia problems Allergies: Coded Allergies: No Known Allergies (Unverified , 04/30/16) Medications: see eMAR Patient NPO?: Yes Past Medical History Cardiovascular: Reports: HTN, [place], arrhythmia - a-fib, pacemaker, other - chf Pulmonary: Reports: COPD, KELVIN Gastrointestinal/Genitourinary: Reports: GERD Neurologic/Psychiatric: Reports: TIA Hematology/Immune: Reports: anemia Anesthesia Pre-op Phys. Exam Physician Exam Last Vital Signs Date Time Temp Pulse Resp B/P (MAP) Pulse Ox O2 Delivery O2 Flow Rate FiO2 02/07/18 11:20 62 18 116/63 100 Nasal Cannula 3 02/07/18 11:03 98.0 Constitutional: NAD Neurologic: CN 2-12 intact Cardiovascular: RRR Respiratory: CTA Gastrointestinal: S/NT/ND Airway Exam Mallampati Score: Class II MO: limited Neck: flexible TMD: 2fb ROM: limited Anesthesia Pre-op A/P Labs Hematology Test 02/07/18 05:30 White Blood Count 6.5 K/UL (4.8-10.8) Red Blood Count 2.44 M/UL (4.20-5.40) L Hemoglobin 8.1 G/DL (12.0-16.0) L Hematocrit 27.1 % (37.0-47.0) L Mean Corpuscular Volume 111 FL (80-99) H Mean Corpuscular Hemoglobin 33.4 PG (27.0-31.0) H Mean Corpuscular Hemoglobin Concent 30.0 G/DL (32.0-36.0) L Red Cell Distribution Width 20.2 % (11.6-14.8) H Platelet Count 90 K/UL (150-450) L Mean Platelet Volume 10.4 FL (6.5-10.1) H Neutrophils (%) (Auto) % (45.0-75.0) Lymphocytes (%) (Auto) % (20.0-45.0) Monocytes (%) (Auto) % (1.0-10.0) Eosinophils (%) (Auto) % (0.0-3.0) Basophils (%) (Auto) % (0.0-2.0) Differential Total Cells Counted 100 Neutrophils % (Manual) 87 % (45-75) H Lymphocytes % (Manual) 11 % (20-45) L Monocytes % (Manual) 1 % (1-10) Eosinophils % (Manual) 1 % (0-3) Basophils % (Manual) 0 % (0-2) Band Neutrophils 0 % (0-8) Nucleated Red Blood Cells 1 /100 WBC Platelet Estimate Decreased L Platelet Morphology Normal Anisocytosis 2+ Macrocytosis 2+ Ovalocytes 2+ Coagulation Test 02/07/18 05:30 Prothrombin Time 14.8 SEC (9.30-11.50) H Prothromb Time International Ratio 1.4 (0.9-1.1) H Activated Partial Thromboplast Time 46 SEC (23-33) H Chemistry Test 02/07/18 05:30 Sodium Level 138 MMOL/L (136-145) Potassium Level 3.9 MMOL/L (3.5-5.1) Chloride Level 108 MMOL/L (98-107) H Carbon Dioxide Level 22 MMOL/L (21-32) Anion Gap 8 mmol/L (5-15) Blood Urea Nitrogen 15 mg/dL (7-18) Creatinine 0.8 MG/DL (0.55-1.30) Estimat Glomerular Filtration Rate mL/min (>60) Glucose Level 87 MG/DL (74-106) Calcium Level 7.8 MG/DL (8.5-10.1) L Magnesium Level 1.9 MG/DL (1.8-2.4) Troponin I 0.017 ng/mL (0.000-0.056) Cortisol AM Sample Pending Risk Assessment & Plan Assessment: asa4 Plan: mac Status Change Before Surgery: No Pre-Antibiotics Drug: Etelvina Woodruff MD Feb 07, 2018 11:30
--- NOTE | 2018-02-07 11:31 | Immediate Post-Op Evaluation ---
Immediate Post-Op Evalulation Immediate Post-Op Evalulation Procedure: egd/bx Date of Evaluation: Feb 07, 2018 Time of Evaluation: 11:15 IV Fluids: 100ml 0.9ns Blood Products: none Estimated Blood Loss: negligible Blood Pressure Systolic: 115 Blood Pressure Diastolic: 67 Pulse Rate: 61 Respiratory Rate: 18 O2 Sat by Pulse Oximetry: 97 Temperature (Fahrenheit): 98.0 Pain Score (1-10): 0 Nausea: No Vomiting: No Complications none Patient Status: awake, reacts, patent Hydration Status: adequate Drug: Etelvina Woodruff MD Feb 07, 2018 11:31
--- NOTE | 2018-02-07 11:33 | 48 Hour Post Anesthesia Eval ---
Post Anesthesia Evaluation Procedure: egd/bx Date of Evaluation: Feb 07, 2018 Time of Evaluation: 11:17 Blood Pressure Systolic: 112 0: 62 Pulse Rate: 61 Respiratory Rate: 18 Temperature (Fahrenheit): 98.0 O2 Sat by Pulse Oximetry: 100 Airway: patent Nausea: No Vomiting: No Hydration Status: adequate Cardiopulmonary Status: stable Post-Anesthesia Complications: none Follow-up care needed: N/A Etelvina Brown MD Feb 07, 2018 11:33
[2018-02-07] MEDS ORDERED: Atropine Sulfate 0.4mg/ml inj IVP PRN (11:45)
--- NOTE | 2018-02-07 12:01 | Cardiac Electrophysiology PN ---
Assessment/Plan Assessment/Plan 1. Weakness and recurrent falls. Ruled out for myocardial infarction. Her EKG showed sinus rhythm with nonspecific ST-T wave abnormality and LVH Echo EF 65% and no pericardial effusion. 2. Status post [employer] pacemaker. The pacemaker was interrogated in the office which showed LV normal function. 3. Hypotension. Resolved after DCing lisinopril and on Midodrine and with iv fluids. 4. Paroxysmal atrial fibrillation, in sinus rhythm on amiodarone and metoprolol 50 b.i.d. Resume Pradaxa when OK with GI. 5. Generalized weakness likely from dehydration and hypotension. 6. History of coronary artery disease remains without any chest pain. 7. Polycythemia vera on hydroxyurea. 8. Anemia s/p EGD that showed gastritis today by Dr Job LIN RN Subjective Subjective BP much better after Bolus and Midodrine and stopping BP meds. NPO for EGD today Objective Last 24 Hour Vital Signs Date Time Temp Pulse Resp B/P (MAP) Pulse Ox O2 Delivery O2 Flow Rate FiO2 02/07/18 11:33 61 18 100 02/07/18 11:31 61 18 97 02/07/18 11:30 98.6 61 14 119/65 100 Nasal Cannula 3 02/07/18 11:20 62 18 116/63 100 Nasal Cannula 3 02/07/18 11:13 61 17 112/62 100 Nasal Cannula 3 02/07/18 11:08 60 15 125/63 100 Nasal Cannula 3 02/07/18 11:03 98.0 61 18 115/67 97 Nasal Cannula 3 02/07/18 09:00 Room Air 02/07/18 08:52 65 110/60 02/07/18 08:00 65 02/07/18 08:00 97.7 65 18 110/60 (77) 96 02/07/18 04:00 88 02/07/18 04:00 97.5 63 18 105/60 (75) 96 02/07/18 00:00 90 02/07/18 00:00 97.9 100 20 98/51 (67) 94 02/06/18 21:00 Room Air 02/06/18 21:00 60 85/51 02/06/18 20:00 97.7 60 18 87/54 (65) 95 02/06/18 20:00 61 02/06/18 16:00 97.7 118 20 75/51 (59) 95 02/06/18 15:36 122 02/06/18 12:34 108 02/06/18 12:00 97.9 117 24 74/47 (56) 97 Intake and Output 02/06/18 02/07/18 19:00 07:00 Intake Total 220 ml 1280 ml Balance 220 ml 1280 ml Intake Oral 120 ml 480 ml IV Total 100 ml 800 ml # Voids 1 Laboratory Tests Test 02/07/18 05:30 White Blood Count 6.5 K/UL (4.8-10.8) Red Blood Count 2.44 M/UL (4.20-5.40) L Hemoglobin 8.1 G/DL (12.0-16.0) L Hematocrit 27.1 % (37.0-47.0) L Mean Corpuscular Volume 111 FL (80-99) H Mean Corpuscular Hemoglobin 33.4 PG (27.0-31.0) H Mean Corpuscular Hemoglobin Concent 30.0 G/DL (32.0-36.0) L Red Cell Distribution Width 20.2 % (11.6-14.8) H Platelet Count 90 K/UL (150-450) L Mean Platelet Volume 10.4 FL (6.5-10.1) H Neutrophils (%) (Auto) % (45.0-75.0) Lymphocytes (%) (Auto) % (20.0-45.0) Monocytes (%) (Auto) % (1.0-10.0) Eosinophils (%) (Auto) % (0.0-3.0) Basophils (%) (Auto) % (0.0-2.0) Differential Total Cells Counted 100 Neutrophils % (Manual) 87 % (45-75) H Lymphocytes % (Manual) 11 % (20-45) L Monocytes % (Manual) 1 % (1-10) Eosinophils % (Manual) 1 % (0-3) Basophils % (Manual) 0 % (0-2) Band Neutrophils 0 % (0-8) Nucleated Red Blood Cells 1 /100 WBC Platelet Estimate Decreased L Platelet Morphology Normal Anisocytosis 2+ Macrocytosis 2+ Ovalocytes 2+ Prothrombin Time 14.8 SEC (9.30-11.50) H Prothromb Time International Ratio 1.4 (0.9-1.1) H Activated Partial Thromboplast Time 46 SEC (23-33) H Sodium Level 138 MMOL/L (136-145) Potassium Level 3.9 MMOL/L (3.5-5.1) Chloride Level 108 MMOL/L (98-107) H Carbon Dioxide Level 22 MMOL/L (21-32) Anion Gap 8 mmol/L (5-15) Blood Urea Nitrogen 15 mg/dL (7-18) Creatinine 0.8 MG/DL (0.55-1.30) Estimat Glomerular Filtration Rate mL/min (>60) Glucose Level 87 MG/DL (74-106) Calcium Level 7.8 MG/DL (8.5-10.1) L Magnesium Level 1.9 MG/DL (1.8-2.4) Troponin I 0.017 ng/mL (0.000-0.056) Cortisol AM Sample Pending Microbiology Date/Time Source Procedure Growth Status 02/05/18 11:15 Blood Blood Culture - Preliminary NO GROWTH AFTER 24 HOURS Resulted 02/05/18 11:00 Blood Blood Culture - Preliminary NO GROWTH AFTER 24 HOURS Resulted 02/05/18 11:00 Nasal Nares Influenza Types A,B Antigen (DELL) - Final Complete Objective HEAD AND NECK: No JVD. LUNGS: Clear. CARDIOVASCULAR: Regular S1 and S2 with no gallop. Soft systolic murmur. Pacemaker in the left subclavian. ABDOMEN: Soft. EXTREMITIES: No pitting edema. River Freitas MD Feb 07, 2018 12:00
--- NOTE | 2018-02-07 12:29 | Internal Med Progress Note ---
Subjective Physician Name Antonio Adrian Attending Physician Antonio Adrian MD Current Medications Medications (Trade) Dose Ordered Sig/Escobar Route PRN Reason Start Time Stop Time Status Last Admin Dose Admin Acetaminophen (Tylenol) 650 mg Q6H PRN ORAL Prn Pain/Headache/Temp > 101 02/05/18 15:45 03/07/18 15:44 02/06/18 09:27 Al Hydroxide/Mg Hydroxide (Mylanta) 15 ml Q1H PRN ORAL gi upset 02/07/18 11:45 02/07/18 19:00 Amiodarone HCl (Cordarone) 200 mg DAILY ORAL 02/05/18 15:45 03/07/18 15:44 02/07/18 08:21 Atropine Sulfate (Atropine 0.4mg/ ml) 0.5 mg Q5M PRN IVP HR less than 45 BPM 02/07/18 11:45 02/07/18 19:00 Barium Sulfate (Readi-Cat 2) 450 ml NOW PRN ORAL Radiology Procedure 02/05/18 15:45 02/07/18 15:41 Calcium Carbonate (Os-Zeb) 1,250 mg DAILY ORAL 02/05/18 15:45 03/07/18 15:44 02/07/18 08:21 Clonidine HCl (Catapres Tab) 0.1 mg Q8H PRN ORAL SBP >170mmHg 02/05/18 15:45 03/07/18 15:44 Dabigatran (Pradaxa) 150 mg Q12HR ORAL 02/05/18 21:00 03/07/18 17:59 02/06/18 22:13 Dextrose (Dextrose 50%) 25 ml Q30M PRN IV Hypoglycemia 02/05/18 15:45 03/07/18 15:44 Dextrose (Dextrose 50%) 50 ml Q30M PRN IV Hypoglycemia 02/05/18 15:45 03/07/18 15:44 Diphenhydramine HCl (Benadryl) 25 mg Q15M PRN IVP Itching 02/07/18 11:45 02/07/18 19:00 Diphenhydramine HCl (Benadryl) 25 mg Q4H PRN IV Itching 02/05/18 15:45 03/07/18 15:44 Fentanyl Citrate (Sublimaze 100 mcg/2 mL) 25 mcg Q10M PRN IV Moderate Pain (Pain Scale 4-6) 02/07/18 11:45 02/07/18 19:00 Gabapentin (Neurontin) 400 mg Q8HR ORAL 02/05/18 22:00 03/07/18 21:59 02/07/18 06:03 Hydralazine HCl (Apresoline) 5 mg Q30M PRN IV SBP>160 OR___/DBP>90 OR___ 02/07/18 11:45 02/07/18 19:00 Hydroxyurea (Hydrea) 500 mg DAILY ORAL 02/05/18 18:00 02/10/18 17:59 02/07/18 08:21 Iopamidol (Isovue-300 100ml) 100 ml NOW PRN INJ Radiology Procedure 02/05/18 15:45 02/07/18 15:41 Metoprolol Tartrate (Lopressor) 50 mg EVERY 12 HOURS ORAL 02/07/18 09:00 03/07/18 20:59 Midazolam HCl (Versed 2mg/2ml vial) 1 mg Q15M PRN IVP For Anxiety 02/07/18 11:45 02/07/18 19:00 Midodrine (Pro-Amatine) 5 mg THREE TIMES A DAY ORAL 02/07/18 09:00 03/09/18 08:59 02/07/18 08:20 Ondansetron HCl (Zofran) 4 mg Q1H PRN IVP Nausea & Vomiting 02/07/18 11:45 02/07/18 19:00 Sodium Chloride 1,000 ml @ 10 mls/hr Q24H IVLG 02/07/18 11:33 02/07/18 13:32 02/07/18 11:33 Sodium Chloride 1,000 ml @ 100 mls/hr Q10H IV 02/06/18 17:30 03/08/18 17:29 02/07/18 03:39 Thiamine HCl (Vitamin B1) 100 mg DAILY ORAL 02/05/18 15:45 03/07/18 15:44 02/07/18 08:21 Allergies: Coded Allergies: No Known Allergies (Unverified , 04/30/16) Subjective awake, alert, responsive, feeling weak and dizzy, BP better, S/P EGD today with gastritis.. Objective Last Vital Signs Date Time Temp Pulse Resp B/P (MAP) Pulse Ox O2 Delivery O2 Flow Rate FiO2 02/07/18 11:45 61 15 121/68 100 Nasal Cannula 3 02/07/18 11:30 98.6 Laboratory Tests Test 02/07/18 05:30 White Blood Count 6.5 K/UL (4.8-10.8) Red Blood Count 2.44 M/UL (4.20-5.40) L Hemoglobin 8.1 G/DL (12.0-16.0) L Hematocrit 27.1 % (37.0-47.0) L Mean Corpuscular Volume 111 FL (80-99) H Mean Corpuscular Hemoglobin 33.4 PG (27.0-31.0) H Mean Corpuscular Hemoglobin Concent 30.0 G/DL (32.0-36.0) L Red Cell Distribution Width 20.2 % (11.6-14.8) H Platelet Count 90 K/UL (150-450) L Mean Platelet Volume 10.4 FL (6.5-10.1) H Neutrophils (%) (Auto) % (45.0-75.0) Lymphocytes (%) (Auto) % (20.0-45.0) Monocytes (%) (Auto) % (1.0-10.0) Eosinophils (%) (Auto) % (0.0-3.0) Basophils (%) (Auto) % (0.0-2.0) Differential Total Cells Counted 100 Neutrophils % (Manual) 87 % (45-75) H Lymphocytes % (Manual) 11 % (20-45) L Monocytes % (Manual) 1 % (1-10) Eosinophils % (Manual) 1 % (0-3) Basophils % (Manual) 0 % (0-2) Band Neutrophils 0 % (0-8) Nucleated Red Blood Cells 1 /100 WBC Platelet Estimate Decreased L Platelet Morphology Normal Anisocytosis 2+ Macrocytosis 2+ Ovalocytes 2+ Prothrombin Time 14.8 SEC (9.30-11.50) H Prothromb Time International Ratio 1.4 (0.9-1.1) H Activated Partial Thromboplast Time 46 SEC (23-33) H Sodium Level 138 MMOL/L (136-145) Potassium Level 3.9 MMOL/L (3.5-5.1) Chloride Level 108 MMOL/L (98-107) H Carbon Dioxide Level 22 MMOL/L (21-32) Anion Gap 8 mmol/L (5-15) Blood Urea Nitrogen 15 mg/dL (7-18) Creatinine 0.8 MG/DL (0.55-1.30) Estimat Glomerular Filtration Rate mL/min (>60) Glucose Level 87 MG/DL (74-106) Calcium Level 7.8 MG/DL (8.5-10.1) L Magnesium Level 1.9 MG/DL (1.8-2.4) Troponin I 0.017 ng/mL (0.000-0.056) Cortisol AM Sample Pending Microbiology Date/Time Source Procedure Growth Status 02/05/18 11:15 Blood Blood Culture - Preliminary NO GROWTH AFTER 24 HOURS Resulted 02/05/18 11:00 Blood Blood Culture - Preliminary NO GROWTH AFTER 24 HOURS Resulted 02/05/18 11:00 Nasal Nares Influenza Types A,B Antigen (DELL) - Final Complete Intake and Output 02/06/18 02/07/18 19:00 07:00 Intake Total 220 ml 1280 ml Balance 220 ml 1280 ml Intake Oral 120 ml 480 ml IV Total 100 ml 800 ml # Voids 1 Objective GENERAL: The patient is awake and responsive, in no acute distress. HEAD AND NECK: Pupils are reactive to light. Extraocular movements are intact. Neck was supple. No JVD. LUNGS: Good air entry. No wheezing or rales. HEART: S1, S2. Regular rhythm. No murmur. Chest wall: pacemaker on left side of chest. ABDOMEN: Soft, nondistended, and nontender. Positive bowel sounds. EXTREMITIES: No cyanosis, clubbing, or edema. MUSCULOSKELETAL: Motor intact 5/5. NEUROLOGIC: Cranial nerves II through XII are grossly intact. Moves all four extremities. Gait was not assessed due to the patient's status. Assessment/Plan Assessment/Plan 1. Dehydration and weakness, Hypotension. 2. Weight loss, nausea, and abdominal pain. 3. Chronic atrial fibrillation. 4. Polycythemia vera. 5. Thrombocytopenia. 6. Hypertension. 7. Obstructive sleep apnea. 8. Coronary artery disease. 9. Dyslipidemia. 10. Chronic systolic dysfunction. 11. Gastritis. PLAN: 1. in Telemetry. 2. We will follow up laboratory. 3. IVF hydration, bolus. 4. Dr. Freitas and Dr. Kaiser consultations 5. Code status, Full Code. 6. DVT prophylaxis: Pradaxa. 7. 2D Echo 8. Cortisol level in AM. Antonio Adrian M.D. CT abdomin and pelvic: IMPRESSION: * Splenomegaly. * Well-circumscribed low-attenuation structure in the superior spleen most likely representing a cyst. This is stable in size and appearance compared to the prior contrast-enhanced exam of 10/04/2016. * Apparent thickening of the wall of the distal stomach which may be exaggerated due to underdistention however correlation with endoscopy recommended. * Status post hysterectomy and likely bilateral salpingo-oophorectomy. Multiple surgical clips noted in the retroperitoneum raising question for prior lymph node dissection. Correlate with surgical history. * Colonic diverticulosis without evidence suggest acute diverticulitis. * Cardiomegaly and pacemaker partially visualized. Findings raising question for mild congestive changes/pulmonary edema. * Trace left and small right pleural effusions with adjacent likely compressive atelectasis in the lower lobes. Additional findings as above. Antonio Adrian MD Feb 07, 2018 12:29
--- NOTE | 2018-02-07 14:26 | Diagnostic Imaging Report ---
Indication: Abdominal pain Technique: Orta-scale and duplex images of the upper abdomen were obtained. Doppler interrogation of the hepatic and pancreatic vessels Comparison: 08/30/2014. Reference also made to abdomen pelvis CT dated 02/06/2018 Findings: Gallbladder is unremarkable, without stones, wall thickening, nor pericholecystic fluid. It is mildly distended. Sonographic Camacho's sign is negative. Common bile duct measures 6 mm in diameter. No intrahepatic biliary ductal dilatation. Liver demonstrates normal echogenicity, no focal abnormality. There is mildly enlarged Portal vein and hepatic veins are patent. Pancreas is unremarkable. Spleen is enlarged, measuring 13.7 cm long axis dimension. Left kidney measures 10.4 cm in length. Right kidney measures 9.3 cm length. Both kidneys demonstrate normal echogenicity. There is no hydronephrosis. No focal abnormality. Note that the left kidney is not well-visualized . Abdominal aorta is partially obscured by bowel gas, visualized portions are non-aneurysmal . There are bilateral pleural effusions Impression: Borderline hepatomegaly. Borderline splenomegaly Bilateral pleural effusions Negative for gallstones or dilated ducts Note inability to visualize portions of the abdominal aorta
--- NOTE | 2018-02-07 16:00 | Procedure Note ---
DATE OF PROCEDURE: 02/07/2018 SURGEON: Blair Kaiser M.D. PROCEDURE: Upper endoscopy with biopsy. ANESTHESIA: Per Dr. Hazel. INSTRUMENT: Olympus adult flexible upper endoscope. INDICATION: Gastric wall thickening seen on the CT scan. The procedure, risks, benefits, and possible consequences, including hemorrhage, aspiration, perforation and infection, and alternative treatments, were explained to the patient/legal guardian by Dr. Blair Kaiser and the patient/legal guardian understood and accepted these risks. DESCRIPTION OF PROCEDURE: After informed consent was obtained and the patient was adequately sedated, Olympus upper endoscope was advanced from mouth into the second portion of the duodenum, and retroflexion was performed in the stomach. The patient has moderate to severe atrophic gastritis. Random biopsies from antrum and body was obtained to rule out H. pylori infection. There was a submucosal lesion right below the GE junction measuring roughly about 3 cm. This lesion needs to be further evaluated by endoscopic ultrasound. No evidence of any active bleeding. No obvious mass was seen in the stomach. SUMMARY OF FINDINGS: 1. Atrophic gastritis, status post biopsy. 2. Submucosal lesion roughly about 3 cm below the GE junction. RECOMMENDATIONS: 1. Follow up biopsy results and treat accordingly. 2. Recommend outpatient EUS for evaluation of this gastric submucosal lesion. I want to thank, Dr. Antonio Adrian, for this kind referral. Blair Kaiser M.D. DR: EDUIN JOB#: [id number] CC: Antonio Adrian M.D.; Fax#: [phone]
--- NOTE | 2018-02-07 17:39 | Cardiology Report ---
APPROVED REPORT EKG Measurement Heart [id number] Normal sinus rhythm Moderate voltage criteria for LVH, may be normal variant Borderline ECG
--- NOTE | 2018-02-07 19:02 | Emergency Room Report ---
History of Present Illness General Chief Complaint: Dizziness Source: Patient, Medical Record Present Illness HPI . Patient is a 77-year-old female who presented after increased generalized weakness and dizziness. Patient had gradual onset of symptoms. She had prior history of cardiac arrhythmia. Patient states that she felt a spinning sensation. She been having multiple frequent falls. Patient last fell yesterday. Patient had previously been taking amiodarone patient was initially noted to be hypotensive. Patient had been noted to be more nauseated than usual. She denies any focal weakness. Allergies: Coded Allergies: No Known Allergies (Unverified , 04/30/16) Patient History Past Medical History: see triage record Reviewed Nursing Documentation: PMH: Agreed; PSxH: Agreed Nursing Documentation-PMH Past Medical History: No History, Except For Hx Cardiac Problems: Yes Hx Hypertension: Yes Hx Pacemaker: Yes Hx Asthma: No Hx COPD: No Hx Diabetes: No Hx Cancer: No Hx Gastrointestinal Problems: Yes Hx Dialysis: No Hx Neurological Problems: Yes Hx Cerebrovascular Accident: No Hx Transient Ischemic Attacks: Yes Hx Seizures: No Hx Headaches: Yes Hx Numbness: Yes Hx Weakness: Yes - Generalized weakness Review of Systems All Other Systems: negative except mentioned in HPI Physical Exam Vital Signs Date Time Temp Pulse Resp B/P (MAP) Pulse Ox O2 Delivery O2 Flow Rate FiO2 02/05/18 10:39 99.1 67 20 94/61 92 Room Air 02/07/18 11:03 3 General Appearance: alert, GCS 15, Chronically Ill ENT: hearing grossly normal, no angioedema, normal voice Neck: full range of motion Respiratory: chest non-tender, lungs clear, normal breath sounds Cardiovascular #1: normal peripheral pulses, regular rate, rhythm Gastrointestinal: normal inspection, non tender, soft Musculoskeletal: normal inspection, back normal Neurologic: normal inspection, alert, oriented x3, responsive, director payment III-XII nml as tested, motor weakness - generalized no focal weakness Skin: normal inspection Medical Decision Making Diagnostic Impression: Primary Impression: Dizziness Additional Impressions: Generalized weakness Fall ER Course Patient presented after a fall with dizziness and generalized weakness.. Differential diagnosis included was not limited to neck fracture, CVA, close head injury, syncopal episode, basilar ischemia. Because of complexity of patient's case laboratory testing and imaging studies were ordered. Patient's noted to have prior history of cardiac arrhythmia. Patient's initial labs showed evidence of mild anemia. There is no evidence of acute infection. CT of the head read by radiology showed no evidence of acute intracranial hemorrhage. EKG interpreted by me showed normal sinus rhythm without acute st changes. Patient started on IV fluids. She appears to be somewhat dehydrated. Patient was given meclizine for vertigo sensation Dr. Antonio Adrian was contacted for inpatient management due to primary care physician. Last Vital Signs Date Time Temp Pulse Resp B/P (MAP) Pulse Ox O2 Delivery O2 Flow Rate FiO2 02/07/18 16:00 70 02/07/18 16:00 97.7 124/60 (81) 02/07/18 11:45 15 100 Nasal Cannula 3 Status: improved Disposition: ADMITTED INPATIENT Condition: Improved Referrals: Antonio Adrian MD (PCP) Petar Thompson MD Feb 07, 2018 19:02
[2018-02-08] VITALS: BP 126/67
[2018-02-08 04:00] VITALS: BP 135/80
[2018-02-08 06:56] LABS: HEMATOCRIT 26.2 % (37.0-47.0); HEMOGLOBIN 8.2 G/DL (12.0-16.0); MEAN CORPUSCULAR VOLUME 108 FL (80-99); PLATELET COUNT 87 K/UL (150-450); RED BLOOD COUNT 2.42 M/UL (4.20-5.40); RED CELL DISTRIBUTION WIDTH 21.1 % (11.6-14.8); WHITE BLOOD COUNT 4.7 K/UL (4.8-10.8)
--- NOTE | 2018-02-08 07:06 | Cardiology Report ---
APPROVED REPORT EXAM: Two-dimensional and M-mode echocardiogram with Doppler and color Doppler. INDICATION AF M-Mode DIMENSIONS IVSd1.1 (0.7-1.1cm)Left Atrium (MM)4.2 (1.6-4.0cm) LVDd3.7 (3.5-5.6cm)Aortic Root3.5 (2.0-3.7cm) PWd1.0 (0.7-1.1cm)Aortic Cusp Exc.1.9 (1.5-2.0cm) LVDs2.8 (2.5-4.0cm) PWs1.2 cm Normal left ventricular chamber size, systolic function and wall motion. Left ventricular ejection fraction estimated to be 60-65 %. Mild left ventricular hypertrophy by 2-D. Anterior Echo-free space, may be due to pericardial fat or effusion. Mild bi-atrial enlargement. Right ventricular chamber size is within normal limits. Focal aortic valve sclerosis with adequate cusp excursion. Thickened mitral valve leaflets with normal excursion. Mitral annulus and aortic root calcification. Pulmonic valve not well visualized. Normal tricuspid valve structure. IVC dilated at 2.3 cm without physiologic collapse suggestive of increased RA pressure. Pacemaker wire present in the right side chambers. A color flow and spectral Doppler study was performed and revealed: Trace aortic regurgitation. Trace mitral regurgitation. Diastolic function indetermined due to AF. Moderate tricuspid regurgitation. Tricuspid systolic velocities suggests peak right ventricular systolic pressure of 60 mmHg, consistent with severe pulmonary hypertension.
[2018-02-08 07:25] LABS: ANION GAP 6 mmol/L (5-15); BLOOD UREA NITROGEN 12 mg/dL (7-18); CALCIUM 7.9 MG/DL (8.5-10.1); CARBON DIOXIDE 25 MMOL/L (21-32); CHLORIDE 108 MMOL/L (98-107); CREATININE 0.8 MG/DL (0.55-1.30); POTASSIUM 4.1 MMOL/L (3.5-5.1); SODIUM 139 MMOL/L (136-145)
[2018-02-08 07:52] LABS: PHOSPHORUS 2.7 MG/DL (2.5-4.9)
[2018-02-08 07:54] LABS: % IRON SATURATION 26 % (15-50); IRON 45 ug/dL (50-175); TOTAL IRON BINDING CAPACITY 171 ug/dL (250-450)
[2018-02-08 08:00] VITALS: BP 137/76
[2018-02-08] MEDS: Hydroxyurea 500mg cap ORAL SCH (08:56)
[2018-02-08] MEDS: Amiodarone 200mg tab ORAL SCH (08:56)
[2018-02-08] MEDS: Dabigatran 150mg cap ORAL SCH ×2 (08:56→20:36)
[2018-02-08] MEDS: Thiamine 100mg tab ORAL SCH (08:56)
[2018-02-08] MEDS: Metoprolol Tartrate 50mg tab ORAL SCH ×2 (09:01→20:36)
[2018-02-08 12:00] VITALS: BP 121/71
--- NOTE | 2018-02-08 14:18 | Cardiac Electrophysiology PN ---
Assessment/Plan Assessment/Plan 1. Weakness and recurrent falls. Ruled out for myocardial infarction. Her EKG showed sinus rhythm with nonspecific ST-T wave abnormality and LVH Echo EF 65% and no pericardial effusion. 2. Status post [employer] pacemaker. The pacemaker was interrogated in the office which showed LV normal function. 3. Hypotension. Resolved off lisinopril and on Midodrine and iv fluids. 4. Paroxysmal atrial fibrillation, in sinus rhythm on amiodarone and metoprolol 50 b.i.d. Resumed Pradaxa 5. Generalized weakness likely from dehydration and hypotension. 6. History of coronary artery disease remains without any chest pain. 7. Polycythemia vera on hydroxyurea. 8. Anemia s/p EGD that showed gastritis today by Dr Job LIN RN and Dr Edwards Subjective Subjective BP much better . No CP or SOB Objective Last 24 Hour Vital Signs Date Time Temp Pulse Resp B/P (MAP) Pulse Ox O2 Delivery O2 Flow Rate FiO2 02/08/18 09:01 74 137/76 02/08/18 09:00 Room Air 02/08/18 08:00 71 02/08/18 08:00 98.1 74 24 137/76 (96) 94 02/08/18 04:00 75 02/08/18 04:00 97.0 73 20 135/80 (98) 99 02/08/18 00:00 97.9 75 20 126/67 (86) 94 02/08/18 00:00 72 02/07/18 21:00 Room Air 02/07/18 21:00 68 103/56 02/07/18 20:00 98.1 67 20 103/56 (72) 94 02/07/18 20:00 68 02/07/18 16:00 70 02/07/18 16:00 97.7 66 124/60 (81) 02/07/18 14:55 69 Intake and Output 02/07/18 02/08/18 19:00 07:00 Intake Total 340 ml Balance 340 ml Intake Oral 240 ml IV Total 100 ml # Voids 3 3 Laboratory Tests Test 02/08/18 05:30 White Blood Count 4.7 K/UL (4.8-10.8) L Red Blood Count 2.42 M/UL (4.20-5.40) L Hemoglobin 8.2 G/DL (12.0-16.0) L Hematocrit 26.2 % (37.0-47.0) L Mean Corpuscular Volume 108 FL (80-99) H Mean Corpuscular Hemoglobin 33.9 PG (27.0-31.0) H Mean Corpuscular Hemoglobin Concent 31.3 G/DL (32.0-36.0) L Red Cell Distribution Width 21.1 % (11.6-14.8) H Platelet Count 87 K/UL (150-450) L Mean Platelet Volume 13.9 FL (6.5-10.1) H Neutrophils (%) (Auto) % (45.0-75.0) Lymphocytes (%) (Auto) % (20.0-45.0) Monocytes (%) (Auto) % (1.0-10.0) Eosinophils (%) (Auto) % (0.0-3.0) Basophils (%) (Auto) % (0.0-2.0) Differential Total Cells Counted 100 Neutrophils % (Manual) 90 % (45-75) H Lymphocytes % (Manual) 8 % (20-45) L Monocytes % (Manual) 0 % (1-10) L Eosinophils % (Manual) 1 % (0-3) Basophils % (Manual) 0 % (0-2) Band Neutrophils 1 % (0-8) Platelet Estimate Decreased L Platelet Morphology Normal Clumped Platelets 1+ Poikilocytosis 1+ Anisocytosis 3+ Macrocytosis 2+ Ovalocytes 1+ Sodium Level 139 MMOL/L (136-145) Potassium Level 4.1 MMOL/L (3.5-5.1) Chloride Level 108 MMOL/L (98-107) H Carbon Dioxide Level 25 MMOL/L (21-32) Anion Gap 6 mmol/L (5-15) Blood Urea Nitrogen 12 mg/dL (7-18) Creatinine 0.8 MG/DL (0.55-1.30) Estimat Glomerular Filtration Rate mL/min (>60) Glucose Level 90 MG/DL (74-106) Calcium Level 7.9 MG/DL (8.5-10.1) L Phosphorus Level 2.7 MG/DL (2.5-4.9) Magnesium Level 1.8 MG/DL (1.8-2.4) Iron Level 45 ug/dL (50-175) L Total Iron Binding Capacity 171 ug/dL (250-450) L Percent Iron Saturation 26 % (15-50) Unsaturated Iron Binding 126 ug/dL (112-346) Hepatitis A IgM Antibody Pending Hepatitis B Surface Antigen Pending Hepatitis B Core IgM Antibody Pending Hepatitis C Antibody Pending Objective HEAD AND NECK: No JVD. LUNGS: Clear. CARDIOVASCULAR: Regular S1 and S2 with no gallop. Soft systolic murmur. Pacemaker in the left subclavian. ABDOMEN: Soft. EXTREMITIES: No pitting edema. River Freitas MD Feb 08, 2018 14:18
--- NOTE | 2018-02-08 14:25 | Internal Med Progress Note ---
Subjective Date of Service: Feb 08, 2018 Physician Name Edwards,Roshan Attending Physician Antonio Adrian MD Current Medications Medications (Trade) Dose Ordered Sig/Escobar Route PRN Reason Start Time Stop Time Status Last Admin Dose Admin Acetaminophen (Tylenol) 650 mg Q6H PRN ORAL Prn Pain/Headache/Temp > 101 02/05/18 15:45 03/07/18 15:44 02/06/18 09:27 Amiodarone HCl (Cordarone) 200 mg DAILY ORAL 02/05/18 15:45 03/07/18 15:44 02/08/18 08:56 Calcium Carbonate (Os-Zeb) 1,250 mg DAILY ORAL 02/05/18 15:45 03/07/18 15:44 02/08/18 08:56 Clonidine HCl (Catapres Tab) 0.1 mg Q8H PRN ORAL SBP >170mmHg 02/05/18 15:45 03/07/18 15:44 Dabigatran (Pradaxa) 150 mg Q12HR ORAL 02/05/18 21:00 03/07/18 17:59 02/08/18 08:56 Dextrose (Dextrose 50%) 25 ml Q30M PRN IV Hypoglycemia 02/05/18 15:45 03/07/18 15:44 Dextrose (Dextrose 50%) 50 ml Q30M PRN IV Hypoglycemia 02/05/18 15:45 03/07/18 15:44 Diphenhydramine HCl (Benadryl) 25 mg Q4H PRN IV Itching 02/05/18 15:45 03/07/18 15:44 Gabapentin (Neurontin) 400 mg Q8HR ORAL 02/05/18 22:00 03/07/18 21:59 02/08/18 13:32 Hydroxyurea (Hydrea) 500 mg DAILY ORAL 02/05/18 18:00 02/10/18 17:59 02/08/18 08:56 Metoprolol Tartrate (Lopressor) 50 mg EVERY 12 HOURS ORAL 02/07/18 09:00 03/07/18 20:59 02/08/18 09:01 Midodrine (Pro-Amatine) 5 mg THREE TIMES A DAY ORAL 02/07/18 09:00 03/09/18 08:59 02/08/18 13:32 Sodium Chloride 1,000 ml @ 100 mls/hr Q10H IV 12/27/18 17:30 03/08/18 17:29 02/08/18 09:47 Thiamine HCl (Vitamin B1) 100 mg DAILY ORAL 02/05/18 15:45 03/07/18 15:44 02/08/18 08:56 Allergies: Coded Allergies: No Known Allergies (Unverified , 04/30/16) ROS Limited/Unobtainable: No Constitutional: Reports: no symptoms HEENT: Reports: no symptoms Cardiovascular: Reports: no symptoms Respiratory: Reports: no symptoms Gastrointestinal/Abdominal: Reports: no symptoms Genitourinary: Reports: no symptoms Neurologic/Psychiatric: Reports: no symptoms Subjective 77 YO F admitted with dehydration and hypotension. S/P endoscopy 02/07/18. Cover for Int Koki Adrian Objective Last Vital Signs Date Time Temp Pulse Resp B/P (MAP) Pulse Ox O2 Delivery O2 Flow Rate FiO2 02/08/18 09:01 74 137/76 02/08/18 09:00 Room Air 02/08/18 08:00 98.1 24 94 02/07/18 11:45 3 Laboratory Tests Test 02/08/18 05:30 White Blood Count 4.7 K/UL (4.8-10.8) L Red Blood Count 2.42 M/UL (4.20-5.40) L Hemoglobin 8.2 G/DL (12.0-16.0) L Hematocrit 26.2 % (37.0-47.0) L Mean Corpuscular Volume 108 FL (80-99) H Mean Corpuscular Hemoglobin 33.9 PG (27.0-31.0) H Mean Corpuscular Hemoglobin Concent 31.3 G/DL (32.0-36.0) L Red Cell Distribution Width 21.1 % (11.6-14.8) H Platelet Count 87 K/UL (150-450) L Mean Platelet Volume 13.9 FL (6.5-10.1) H Neutrophils (%) (Auto) % (45.0-75.0) Lymphocytes (%) (Auto) % (20.0-45.0) Monocytes (%) (Auto) % (1.0-10.0) Eosinophils (%) (Auto) % (0.0-3.0) Basophils (%) (Auto) % (0.0-2.0) Differential Total Cells Counted 100 Neutrophils % (Manual) 90 % (45-75) H Lymphocytes % (Manual) 8 % (20-45) L Monocytes % (Manual) 0 % (1-10) L Eosinophils % (Manual) 1 % (0-3) Basophils % (Manual) 0 % (0-2) Band Neutrophils 1 % (0-8) Platelet Estimate Decreased L Platelet Morphology Normal Clumped Platelets 1+ Poikilocytosis 1+ Anisocytosis 3+ Macrocytosis 2+ Ovalocytes 1+ Sodium Level 139 MMOL/L (136-145) Potassium Level 4.1 MMOL/L (3.5-5.1) Chloride Level 108 MMOL/L (98-107) H Carbon Dioxide Level 25 MMOL/L (21-32) Anion Gap 6 mmol/L (5-15) Blood Urea Nitrogen 12 mg/dL (7-18) Creatinine 0.8 MG/DL (0.55-1.30) Estimat Glomerular Filtration Rate mL/min (>60) Glucose Level 90 MG/DL (74-106) Calcium Level 7.9 MG/DL (8.5-10.1) L Phosphorus Level 2.7 MG/DL (2.5-4.9) Magnesium Level 1.8 MG/DL (1.8-2.4) Iron Level 45 ug/dL (50-175) L Total Iron Binding Capacity 171 ug/dL (250-450) L Percent Iron Saturation 26 % (15-50) Unsaturated Iron Binding 126 ug/dL (112-346) Hepatitis A IgM Antibody Pending Hepatitis B Surface Antigen Pending Hepatitis B Core IgM Antibody Pending Hepatitis C Antibody Pending Intake and Output 02/07/18 02/08/18 19:00 07:00 Intake Total 340 ml Balance 340 ml Intake Oral 240 ml IV Total 100 ml # Voids 3 3 Objective Objective GENERAL: The patient is awake and responsive, in no acute distress. HEAD AND NECK: Pupils are reactive to light. Extraocular movements are intact. Neck was supple. No JVD. LUNGS: Good air entry. No wheezing or rales. HEART: S1, S2. Regular rhythm. No murmur. Chest wall: pacemaker on left side of chest. ABDOMEN: Soft, nondistended, and nontender. Positive bowel sounds. EXTREMITIES: No cyanosis, clubbing, or edema. MUSCULOSKELETAL: Motor intact 5/5. NEUROLOGIC: Cranial nerves II through XII are grossly intact. Moves all four extremities. Gait was not assessed due to the patient's status. Assessment/Plan Assessment/Plan Assessment/Plan Assessment/Plan 1. Dehydration and weakness, Hypotension. 2. Weight loss, nausea, and abdominal pain. 3. Chronic atrial fibrillation. 4. Polycythemia vera. 5. Thrombocytopenia. 6. Hypertension. 7. Obstructive sleep apnea. 8. Coronary artery disease. 9. Dyslipidemia. 10. Chronic systolic dysfunction. 11. Gastritis. PLAN: 1. in Telemetry. 2. We will follow up laboratory. 3. IVF hydration, bolus. 4. Dr. Freitas and Dr. Kiaser consultations 5. Code status, Full Code. 6. DVT prophylaxis: Pradaxa. 7. 2D Echo 8. Cortisol level in AM. Roshan Edwards MD Feb 08, 2018 14:25
--- NOTE | 2018-02-08 15:59 | General Progress Note ---
Assessment/Plan Assessment/Plan Assessment - submucosal gastric lesion - P. Vera - KELVIN - HTN - CHF - Afib, pacer - constipation Recommendation - laxative - push po - follow Sx and exam - EUS at later date Subjective Allergies: Coded Allergies: No Known Allergies (Unverified , 04/30/16) Subjective Feels OK no abd complaints eating OK No BM x 1-2 d Objective Last 24 Hour Vital Signs Date Time Temp Pulse Resp B/P (MAP) Pulse Ox O2 Delivery O2 Flow Rate FiO2 02/08/18 12:00 97.5 60 18 121/71 (88) 95 02/08/18 12:00 61 02/08/18 09:01 74 137/76 02/08/18 09:00 Room Air 02/08/18 08:00 71 02/08/18 08:00 98.1 74 24 137/76 (96) 94 02/08/18 04:00 75 02/08/18 04:00 97.0 73 20 135/80 (98) 99 02/08/18 00:00 97.9 75 20 126/67 (86) 94 02/08/18 00:00 72 02/07/18 21:00 Room Air 02/07/18 21:00 68 103/56 02/07/18 20:00 98.1 67 20 103/56 (72) 94 02/07/18 20:00 68 02/07/18 16:00 70 02/07/18 16:00 97.7 66 124/60 (81) Intake and Output 02/07/18 02/08/18 19:00 07:00 Intake Total 340 ml Balance 340 ml Intake Oral 240 ml IV Total 100 ml # Voids 3 3 Laboratory Tests 02/08/18 05:30: White Blood Count 4.7L, Red Blood Count 2.42L, Hemoglobin 8.2L, Hematocrit 26.2L , Mean Corpuscular Volume 108H, Mean Corpuscular Hemoglobin 33.9H, Mean Corpuscular Hemoglobin Concent 31.3L, Red Cell Distribution Width 21.1H, Platelet Count 87L, Mean Platelet Volume 13.9H, Neutrophils (%) (Auto) , Lymphocytes (%) (Auto) , Monocytes (%) (Auto) , Eosinophils (%) (Auto) , Basophils (%) (Auto) , Differential Total Cells Counted 100, Neutrophils % ( Manual) 90H, Lymphocytes % (Manual) 8L, Monocytes % (Manual) 0L, Eosinophils % ( Manual) 1, Basophils % (Manual) 0, Band Neutrophils 1, Platelet Estimate DecreasedL, Platelet Morphology Normal, Clumped Platelets 1+, Poikilocytosis 1+ , Anisocytosis 3+, Macrocytosis 2+, Ovalocytes 1+, Sodium Level 139, Potassium Level 4.1, Chloride Level 108H, Carbon Dioxide Level 25, Anion Gap 6, Blood Urea Nitrogen 12, Creatinine 0.8, Estimat Glomerular Filtration Rate , Glucose Level 90, Calcium Level 7.9L, Phosphorus Level 2.7, Magnesium Level 1.8, Iron Level 45L, Total Iron Binding Capacity 171L, Percent Iron Saturation 26, Unsaturated Iron Binding 126, Hepatitis A IgM Antibody [Pending], Hepatitis B Surface Antigen [Pending], Hepatitis B Core IgM Antibody [Pending], Hepatitis C Antibody [Pending] Height (Feet): 5 Height (Inches): 3.00 Weight (Pounds): 156 Objective Elderly woman NCAT supple CTA RRR abd soft no edema Juwan Andrade MD Feb 08, 2018 15:59
[2018-02-08 16:00] VITALS: BP 119/69
[2018-02-08] MEDS ORDERED: Sorbitol Solution UD 30ml ORAL SCH (16:45)
[2018-02-08 20:00] VITALS: BP 150/83
[2018-02-08] MEDS ORDERED: DiphenhydrAMINE 50mg/ml Inj IV PRN (23:45)
[2018-02-09] VITALS: BP 143/83
[2018-02-09 04:00] VITALS: BP 129/92
[2018-02-09 07:24] LABS: HEMATOCRIT 32.1 % (37.0-47.0); HEMOGLOBIN 9.7 G/DL (12.0-16.0); MEAN CORPUSCULAR VOLUME 108 FL (80-99); PLATELET COUNT 89 K/UL (150-450); RED BLOOD COUNT 2.98 M/UL (4.20-5.40); RED CELL DISTRIBUTION WIDTH 21.1 % (11.6-14.8); WHITE BLOOD COUNT 6.1 K/UL (4.8-10.8)
[2018-02-09 08:00] VITALS: BP 140/64
[2018-02-09 08:06] LABS: ANION GAP 7 mmol/L (5-15); BLOOD UREA NITROGEN 8 mg/dL (7-18); CALCIUM 8.2 MG/DL (8.5-10.1); CARBON DIOXIDE 24 MMOL/L (21-32); CHLORIDE 109 MMOL/L (98-107); CREATININE 0.9 MG/DL (0.55-1.30); POTASSIUM 3.5 MMOL/L (3.5-5.1); SODIUM 140 MMOL/L (136-145)
[2018-02-09] MEDS: Amiodarone 200mg tab ORAL SCH (09:12)
[2018-02-09] MEDS: Dabigatran 150mg cap ORAL SCH ×2 (09:12→20:42)
[2018-02-09] MEDS: Hydroxyurea 500mg cap ORAL SCH (09:12)
[2018-02-09] MEDS: Thiamine 100mg tab ORAL SCH (09:12)
[2018-02-09] MEDS: Metoprolol Tartrate 50mg tab ORAL SCH ×2 (09:13→20:42)
[2018-02-09 12:00] VITALS: BP 122/66
--- NOTE | 2018-02-09 14:14 | Internal Med Progress Note ---
Subjective Date of Service: Feb 09, 2018 Physician Name Roshan Edwards Attending Physician Antonio Adrian MD Current Medications Medications (Trade) Dose Ordered Sig/Escobar Route PRN Reason Start Time Stop Time Status Last Admin Dose Admin Acetaminophen (Tylenol) 650 mg Q6H PRN ORAL Prn Pain/Headache/Temp > 101 02/08/18 21:45 03/07/18 15:44 Amiodarone HCl (Cordarone) 200 mg DAILY ORAL 02/09/18 09:00 03/07/18 15:44 02/09/18 09:12 Calcium Carbonate (Os-Zeb) 1,250 mg DAILY ORAL 02/09/18 09:00 03/07/18 15:44 02/09/18 09:13 Clonidine HCl (Catapres Tab) 0.1 mg Q8H PRN ORAL SBP >170mmHg 02/08/18 23:45 03/07/18 15:44 Dabigatran (Pradaxa) 150 mg Q12HR ORAL 02/09/18 09:00 03/07/18 17:59 02/09/18 09:12 Dextrose (Dextrose 50%) 25 ml Q30M PRN IV Hypoglycemia 02/08/18 21:15 03/07/18 15:44 Dextrose (Dextrose 50%) 50 ml Q30M PRN IV Hypoglycemia 02/08/18 21:15 03/07/18 15:44 Diphenhydramine HCl (Benadryl) 25 mg Q4H PRN IV Itching 02/08/18 23:45 03/07/18 15:44 Gabapentin (Neurontin) 400 mg Q8HR ORAL 02/08/18 22:00 03/07/18 21:59 02/09/18 13:22 Hydroxyurea (Hydrea) 500 mg DAILY ORAL 02/09/18 09:00 02/10/18 17:59 02/09/18 09:12 Metoprolol Tartrate (Lopressor) 50 mg EVERY 12 HOURS ORAL 02/09/18 09:00 03/07/18 20:59 02/09/18 09:13 Midodrine (Pro-Amatine) 5 mg THREE TIMES A DAY ORAL 02/09/18 09:00 03/09/18 08:59 02/09/18 13:22 Thiamine HCl (Vitamin B1) 100 mg DAILY ORAL 02/09/18 09:00 03/07/18 15:44 02/09/18 09:12 Allergies: Coded Allergies: No Known Allergies (Unverified , 04/30/16) ROS Limited/Unobtainable: No Constitutional: Reports: no symptoms HEENT: Reports: no symptoms Cardiovascular: Reports: no symptoms Respiratory: Reports: no symptoms Gastrointestinal/Abdominal: Reports: no symptoms Genitourinary: Reports: no symptoms Neurologic/Psychiatric: Reports: no symptoms Subjective 77 YO F admitted with dehydration and hypotension. S/P endoscopy 02/07/18. Cover for Int Germán-DR Adrian Objective Last Vital Signs Date Time Temp Pulse Resp B/P (MAP) Pulse Ox O2 Delivery O2 Flow Rate FiO2 02/09/18 12:00 97.2 60 19 122/66 (84) 94 02/09/18 09:00 Room Air 02/07/18 11:45 3 Laboratory Tests Test 02/09/18 05:35 White Blood Count 6.1 K/UL (4.8-10.8) Red Blood Count 2.98 M/UL (4.20-5.40) L Hemoglobin 9.7 G/DL (12.0-16.0) L Hematocrit 32.1 % (37.0-47.0) L Mean Corpuscular Volume 108 FL (80-99) H Mean Corpuscular Hemoglobin 32.6 PG (27.0-31.0) H Mean Corpuscular Hemoglobin Concent 30.3 G/DL (32.0-36.0) L Red Cell Distribution Width 21.1 % (11.6-14.8) H Platelet Count 89 K/UL (150-450) L Mean Platelet Volume 10.6 FL (6.5-10.1) H Neutrophils (%) (Auto) % (45.0-75.0) Lymphocytes (%) (Auto) % (20.0-45.0) Monocytes (%) (Auto) % (1.0-10.0) Eosinophils (%) (Auto) % (0.0-3.0) Basophils (%) (Auto) % (0.0-2.0) Differential Total Cells Counted 100 Neutrophils % (Manual) 87 % (45-75) H Lymphocytes % (Manual) 4 % (20-45) L Monocytes % (Manual) 1 % (1-10) Eosinophils % (Manual) 2 % (0-3) Basophils % (Manual) 0 % (0-2) Band Neutrophils 6 % (0-8) Platelet Estimate Decreased L Platelet Morphology Giant Platelets 1+ Polychromasia 1+ Hypochromasia 1+ Anisocytosis 2+ Sodium Level 140 MMOL/L (136-145) Potassium Level 3.5 MMOL/L (3.5-5.1) Chloride Level 109 MMOL/L (98-107) H Carbon Dioxide Level 24 MMOL/L (21-32) Anion Gap 7 mmol/L (5-15) Blood Urea Nitrogen 8 mg/dL (7-18) Creatinine 0.9 MG/DL (0.55-1.30) Estimat Glomerular Filtration Rate mL/min (>60) Glucose Level 92 MG/DL (74-106) Calcium Level 8.2 MG/DL (8.5-10.1) L Intake and Output 02/08/18 02/09/18 19:00 07:00 Intake Total 460 ml Balance 460 ml Intake Oral 460 ml # Voids 3 3 # Bowel Movements 3 Objective Objective GENERAL: The patient is awake and responsive, in no acute distress. HEAD AND NECK: Pupils are reactive to light. Extraocular movements are intact. Neck was supple. No JVD. LUNGS: Good air entry. No wheezing or rales. HEART: S1, S2. Regular rhythm. No murmur. Chest wall: pacemaker on left side of chest. ABDOMEN: Soft, nondistended, and nontender. Positive bowel sounds. EXTREMITIES: No cyanosis, clubbing, or edema. MUSCULOSKELETAL: Motor intact 5/5. NEUROLOGIC: Cranial nerves II through XII are grossly intact. Moves all four extremities. Gait was not assessed due to the patient's status. Assessment/Plan Assessment/Plan Assessment/Plan Assessment/Plan 1. Dehydration and weakness, Hypotension. 2. Weight loss, nausea, and abdominal pain. 3. Chronic atrial fibrillation. 4. Polycythemia vera. 5. Thrombocytopenia. 6. Hypertension. 7. Obstructive sleep apnea. 8. Coronary artery disease. 9. Dyslipidemia. 10. Chronic systolic dysfunction. 11. Gastritis. PLAN: 1. in Telemetry. 2. We will follow up laboratory. 3. IVF hydration, bolus. 4. Dr. Freitas and Dr. Kaiser consultations 5. Code status, Full Code. 6. DVT prophylaxis: Pradaxa. 7. Discharge planning Edwards,Roshan MD Feb 09, 2018 14:14
[2018-02-09 16:00] VITALS: BP 112/63
--- NOTE | 2018-02-09 19:13 | General Progress Note ---
Assessment/Plan Assessment/Plan Assessment - submucosal gastric lesion - P. Vera - KELVIN - HTN - CHF - Afib, pacer - constipation Recommendation - laxative PRN - push po - follow Sx and exam - EUS at later date Subjective Allergies: Coded Allergies: No Known Allergies (Unverified , 04/30/16) Subjective Feels OK no abd complaints eating OK (+) BM Objective Last 24 Hour Vital Signs Date Time Temp Pulse Resp B/P (MAP) Pulse Ox O2 Delivery O2 Flow Rate FiO2 02/09/18 16:00 97.7 60 20 112/63 (79) 94 02/09/18 12:00 97.2 60 19 122/66 (84) 94 02/09/18 09:13 68 140/64 02/09/18 09:00 Room Air 02/09/18 08:00 97.4 68 20 140/64 (89) 94 02/09/18 04:00 98.5 71 18 129/92 (104) 95 02/09/18 00:00 98.0 62 19 143/83 (103) 96 02/08/18 21:00 Room Air 02/08/18 20:36 65 150/83 02/08/18 20:00 98.6 65 20 150/83 (105) 97 02/08/18 20:00 64 Intake and Output 02/08/18 02/09/18 19:00 07:00 Intake Total 460 ml Balance 460 ml Intake Oral 460 ml # Voids 3 3 # Bowel Movements 3 Laboratory Tests 02/09/18 05:35: White Blood Count 6.1, Red Blood Count 2.98L, Hemoglobin 9.7L, Hematocrit 32.1L , Mean Corpuscular Volume 108H, Mean Corpuscular Hemoglobin 32.6H, Mean Corpuscular Hemoglobin Concent 30.3L, Red Cell Distribution Width 21.1H, Platelet Count 89L, Mean Platelet Volume 10.6H, Neutrophils (%) (Auto) , Lymphocytes (%) (Auto) , Monocytes (%) (Auto) , Eosinophils (%) (Auto) , Basophils (%) (Auto) , Differential Total Cells Counted 100, Neutrophils % ( Manual) 87H, Lymphocytes % (Manual) 4L, Monocytes % (Manual) 1, Eosinophils % ( Manual) 2, Basophils % (Manual) 0, Band Neutrophils 6, Platelet Estimate DecreasedL, Platelet Morphology , Giant Platelets 1+, Polychromasia 1+, Hypochromasia 1+, Anisocytosis 2+, Sodium Level 140, Potassium Level 3.5, Chloride Level 109H, Carbon Dioxide Level 24, Anion Gap 7, Blood Urea Nitrogen 8 , Creatinine 0.9, Estimat Glomerular Filtration Rate , Glucose Level 92, Calcium Level 8.2L Height (Feet): 5 Height (Inches): 3.00 Weight (Pounds): 156 Objective Elderly woman NCAT supple CTA RRR abd soft no edema Juwan Andrade MD Feb 09, 2018 19:13
[2018-02-09 20:00] VITALS: BP 118/68
[2018-02-10] VITALS: BP 144/83
[2018-02-10 03:55] VITALS: BP 143/71
[2018-02-10 08:00] VITALS: BP 129/67
[2018-02-10 08:04] LABS: HEMATOCRIT 31.9 % (37.0-47.0); HEMOGLOBIN 9.8 G/DL (12.0-16.0); MEAN CORPUSCULAR VOLUME 110 FL (80-99); PLATELET COUNT 110 K/UL (150-450); RED CELL DISTRIBUTION WIDTH 20.9 % (11.6-14.8); WHITE BLOOD COUNT 5.3 K/UL (4.8-10.8)
[2018-02-10 08:06] LABS: ANION GAP 7 mmol/L (5-15); BLOOD UREA NITROGEN 9 mg/dL (7-18); CALCIUM 8.1 MG/DL (8.5-10.1); CARBON DIOXIDE 25 MMOL/L (21-32); CHLORIDE 108 MMOL/L (98-107); CREATININE 0.8 MG/DL (0.55-1.30); POTASSIUM 4.2 MMOL/L (3.5-5.1); SODIUM 140 MMOL/L (136-145)
[2018-02-10] MEDS: Hydroxyurea 500mg cap ORAL SCH (08:49)
[2018-02-10] MEDS: Dabigatran 150mg cap ORAL SCH ×2 (08:49→21:00)
[2018-02-10] MEDS: Thiamine 100mg tab ORAL SCH (08:49)
[2018-02-10] MEDS: Amiodarone 200mg tab ORAL SCH (08:50)
[2018-02-10] MEDS: Metoprolol Tartrate 50mg tab ORAL SCH ×2 (08:50→21:00)
--- NOTE | 2018-02-10 10:40 | Cardiac Electrophysiology PN ---
Assessment/Plan Assessment/Plan 1. Weakness and recurrent falls. Ruled out for myocardial infarction. Her EKG showed sinus rhythm with nonspecific ST-T wave abnormality and LVH Echo EF 65% and no pericardial effusion. 2. Status post [employer] pacemaker. The pacemaker was interrogated in the office which showed LV normal function. 3. Hypotension. Resolved off lisinopril and on Midodrine and iv fluids. 4. Paroxysmal atrial fibrillation, in sinus rhythm on amiodarone, metoprolol 50 bid and Pradaxa 5. Generalized weakness likely from dehydration and hypotension. 6. History of coronary artery disease remains without any chest pain. 7. Polycythemia vera on hydroxyurea. 8. Anemia s/p EGD that showed gastritis by Dr Job LIN RN Subjective Subjective Comfortable in NAD. No events Objective Last 24 Hour Vital Signs Date Time Temp Pulse Resp B/P (MAP) Pulse Ox O2 Delivery O2 Flow Rate FiO2 02/10/18 08:50 81 129/67 02/10/18 03:55 97.7 60 21 143/71 (95) 96 02/10/18 00:00 97.3 62 20 144/83 (103) 96 02/09/18 21:00 Room Air 02/09/18 20:42 60 118/68 02/09/18 20:00 97.1 60 21 118/68 (85) 94 02/09/18 16:00 97.7 60 20 112/63 (79) 94 02/09/18 12:00 97.2 60 19 122/66 (84) 94 Intake and Output 02/09/18 02/10/18 18:59 06:59 Intake Total 600 ml 400 ml Balance 600 ml 400 ml Intake Oral 600 ml 400 ml # Voids 4 4 # Bowel Movements 2 3 Laboratory Tests Test 02/10/18 06:08 White Blood Count 5.3 K/UL (4.8-10.8) Red Blood Count 2.90 M/UL (4.20-5.40) L Hemoglobin 9.8 G/DL (12.0-16.0) L Hematocrit 31.9 % (37.0-47.0) L Mean Corpuscular Volume 110 FL (80-99) H Mean Corpuscular Hemoglobin 33.8 PG (27.0-31.0) H Mean Corpuscular Hemoglobin Concent 30.7 G/DL (32.0-36.0) L Red Cell Distribution Width 20.9 % (11.6-14.8) H Platelet Count 110 K/UL (150-450) L Mean Platelet Volume 10.5 FL (6.5-10.1) H Neutrophils (%) (Auto) % (45.0-75.0) Lymphocytes (%) (Auto) % (20.0-45.0) Monocytes (%) (Auto) % (1.0-10.0) Eosinophils (%) (Auto) % (0.0-3.0) Basophils (%) (Auto) % (0.0-2.0) Differential Total Cells Counted 100 Neutrophils % (Manual) 92 % (45-75) H Lymphocytes % (Manual) 5 % (20-45) L Monocytes % (Manual) 1 % (1-10) Eosinophils % (Manual) 2 % (0-3) Basophils % (Manual) 0 % (0-2) Band Neutrophils 0 % (0-8) Platelet Estimate Decreased L Platelet Morphology Giant Platelets Occasional Hypochromasia 1+ Anisocytosis 2+ Macrocytosis 1+ Ovalocytes Occasional Sodium Level 140 MMOL/L (136-145) Potassium Level 4.2 MMOL/L (3.5-5.1) Chloride Level 108 MMOL/L (98-107) H Carbon Dioxide Level 25 MMOL/L (21-32) Anion Gap 7 mmol/L (5-15) Blood Urea Nitrogen 9 mg/dL (7-18) Creatinine 0.8 MG/DL (0.55-1.30) Estimat Glomerular Filtration Rate mL/min (>60) Glucose Level 79 MG/DL (74-106) Calcium Level 8.1 MG/DL (8.5-10.1) L Objective HEAD AND NECK: No JVD. LUNGS: Clear. CARDIOVASCULAR: Regular S1 and S2 with no gallop. Soft systolic murmur. Pacemaker in the left subclavian. ABDOMEN: Soft. EXTREMITIES: No pitting edema. River Freitas MD Feb 10, 2018 10:40
[2018-02-10 12:00] VITALS: BP 133/67
[2018-02-10 16:00] VITALS: BP 120/83
--- NOTE | 2018-02-10 16:39 | Internal Med Progress Note ---
Subjective Date of Service: Feb 10, 2018 Physician Name Edwards,Roshan Attending Physician Antonio Adrian MD Current Medications Medications (Trade) Dose Ordered Sig/Escobar Route PRN Reason Start Time Stop Time Status Last Admin Dose Admin Acetaminophen (Tylenol) 650 mg Q6H PRN ORAL Prn Pain/Headache/Temp > 101 02/08/18 21:45 03/07/18 15:44 02/10/18 05:56 Amiodarone HCl (Cordarone) 200 mg DAILY ORAL 02/09/18 09:00 03/07/18 15:44 02/10/18 08:50 Calcium Carbonate (Os-Zeb) 1,250 mg DAILY ORAL 02/09/18 09:00 03/07/18 15:44 02/10/18 08:49 Clonidine HCl (Catapres Tab) 0.1 mg Q8H PRN ORAL SBP >170mmHg 02/08/18 23:45 03/07/18 15:44 Dabigatran (Pradaxa) 150 mg Q12HR ORAL 02/09/18 09:00 03/07/18 17:59 02/10/18 08:49 Dextrose (Dextrose 50%) 25 ml Q30M PRN IV Hypoglycemia 02/08/18 21:15 03/07/18 15:44 Dextrose (Dextrose 50%) 50 ml Q30M PRN IV Hypoglycemia 02/08/18 21:15 03/07/18 15:44 Diphenhydramine HCl (Benadryl) 25 mg Q4H PRN IV Itching 02/08/18 23:45 03/07/18 15:44 Gabapentin (Neurontin) 400 mg Q8HR ORAL 02/08/18 22:00 03/07/18 21:59 02/10/18 13:58 Hydroxyurea (Hydrea) 500 mg DAILY ORAL 02/11/18 09:00 02/20/18 17:59 UNV Metoprolol Tartrate (Lopressor) 50 mg EVERY 12 HOURS ORAL 02/09/18 09:00 03/07/18 20:59 02/10/18 08:50 Midodrine (Pro-Amatine) 5 mg THREE TIMES A DAY ORAL 02/09/18 09:00 03/09/18 08:59 02/10/18 13:58 Thiamine HCl (Vitamin B1) 100 mg DAILY ORAL 02/09/18 09:00 03/07/18 15:44 02/10/18 08:49 Allergies: Coded Allergies: No Known Allergies (Unverified , 04/30/16) ROS Limited/Unobtainable: No Constitutional: Reports: no symptoms HEENT: Reports: no symptoms Cardiovascular: Reports: no symptoms Respiratory: Reports: no symptoms Gastrointestinal/Abdominal: Reports: no symptoms Genitourinary: Reports: no symptoms Neurologic/Psychiatric: Reports: no symptoms Subjective 77 YO F admitted with dehydration and hypotension. S/P endoscopy 02/07/18. Cover for Int Med-DR Adrian Objective Last Vital Signs Date Time Temp Pulse Resp B/P (MAP) Pulse Ox O2 Delivery O2 Flow Rate FiO2 02/10/18 08:50 81 129/67 02/10/18 03:55 97.7 21 96 02/09/18 21:00 Room Air 02/07/18 11:45 3 Laboratory Tests Test 02/10/18 06:08 White Blood Count 5.3 K/UL (4.8-10.8) Red Blood Count 2.90 M/UL (4.20-5.40) L Hemoglobin 9.8 G/DL (12.0-16.0) L Hematocrit 31.9 % (37.0-47.0) L Mean Corpuscular Volume 110 FL (80-99) H Mean Corpuscular Hemoglobin 33.8 PG (27.0-31.0) H Mean Corpuscular Hemoglobin Concent 30.7 G/DL (32.0-36.0) L Red Cell Distribution Width 20.9 % (11.6-14.8) H Platelet Count 110 K/UL (150-450) L Mean Platelet Volume 10.5 FL (6.5-10.1) H Neutrophils (%) (Auto) % (45.0-75.0) Lymphocytes (%) (Auto) % (20.0-45.0) Monocytes (%) (Auto) % (1.0-10.0) Eosinophils (%) (Auto) % (0.0-3.0) Basophils (%) (Auto) % (0.0-2.0) Differential Total Cells Counted 100 Neutrophils % (Manual) 92 % (45-75) H Lymphocytes % (Manual) 5 % (20-45) L Monocytes % (Manual) 1 % (1-10) Eosinophils % (Manual) 2 % (0-3) Basophils % (Manual) 0 % (0-2) Band Neutrophils 0 % (0-8) Platelet Estimate Decreased L Platelet Morphology Giant Platelets Occasional Hypochromasia 1+ Anisocytosis 2+ Macrocytosis 1+ Ovalocytes Occasional Sodium Level 140 MMOL/L (136-145) Potassium Level 4.2 MMOL/L (3.5-5.1) Chloride Level 108 MMOL/L (98-107) H Carbon Dioxide Level 25 MMOL/L (21-32) Anion Gap 7 mmol/L (5-15) Blood Urea Nitrogen 9 mg/dL (7-18) Creatinine 0.8 MG/DL (0.55-1.30) Estimat Glomerular Filtration Rate mL/min (>60) Glucose Level 79 MG/DL (74-106) Calcium Level 8.1 MG/DL (8.5-10.1) L Intake and Output 02/09/18 02/10/18 19:00 07:00 Intake Total 600 ml 400 ml Balance 600 ml 400 ml Intake Oral 600 ml 400 ml # Voids 4 4 # Bowel Movements 2 3 Objective Objective GENERAL: The patient is awake and responsive, in no acute distress. HEAD AND NECK: Pupils are reactive to light. Extraocular movements are intact. Neck was supple. No JVD. LUNGS: Good air entry. No wheezing or rales. HEART: S1, S2. Regular rhythm. No murmur. Chest wall: pacemaker on left side of chest. ABDOMEN: Soft, nondistended, and nontender. Positive bowel sounds. EXTREMITIES: No cyanosis, clubbing, or edema. MUSCULOSKELETAL: Motor intact 5/5. NEUROLOGIC: Cranial nerves II through XII are grossly intact. Moves all four extremities. Gait was not assessed due to the patient's status. Assessment/Plan Assessment/Plan Assessment/Plan Assessment/Plan 1. Dehydration and weakness, Hypotension. 2. Weight loss, nausea, and abdominal pain. 3. Chronic atrial fibrillation. 4. Polycythemia vera. 5. Thrombocytopenia. 6. Hypertension. 7. Obstructive sleep apnea. 8. Coronary artery disease. 9. Dyslipidemia. 10. Chronic systolic dysfunction. 11. Gastritis. 12. Gastric wall thickening PLAN: 1. in Telemetry. 2. We will follow up laboratory. 3. IVF hydration, bolus. 4. Dr. Freitas and Dr. Kaiser consultations 5. Code status, Full Code. 6. DVT prophylaxis: Pradaxa. 7. Discharge planning 8. Gastric wall thickening-await EUS-see GI note Roshan Edwards MD Feb 10, 2018 16:39
[2018-02-10 20:00] VITALS: BP 151/74
--- NOTE | 2018-02-10 20:23 | General Progress Note ---
Assessment/Plan Assessment/Plan Assessment - submucosal gastric lesion - P. Vera - KELVIN - HTN - CHF - Afib, pacer - constipation Recommendation - laxative PRN - push po - follow Sx and exam - EUS at later date Subjective Allergies: Coded Allergies: No Known Allergies (Unverified , 04/30/16) Subjective Feels OK no abd complaints eating OK (+) BM Objective Last 24 Hour Vital Signs Date Time Temp Pulse Resp B/P (MAP) Pulse Ox O2 Delivery O2 Flow Rate FiO2 02/10/18 16:00 97.5 65 20 120/83 (95) 100 02/10/18 12:00 98.0 68 18 133/67 (89) 99 02/10/18 09:00 Room Air 02/10/18 08:50 81 129/67 02/10/18 08:00 97.8 70 20 129/67 (87) 100 02/10/18 03:55 97.7 60 21 143/71 (95) 96 02/10/18 00:00 97.3 62 20 144/83 (103) 96 02/09/18 21:00 Room Air 02/09/18 20:42 60 118/68 Intake and Output 02/09/18 02/10/18 19:00 07:00 Intake Total 600 ml 400 ml Balance 600 ml 400 ml Intake Oral 600 ml 400 ml # Voids 4 4 # Bowel Movements 2 3 Laboratory Tests 02/10/18 06:08: White Blood Count 5.3, Red Blood Count 2.90L, Hemoglobin 9.8L, Hematocrit 31.9L , Mean Corpuscular Volume 110H, Mean Corpuscular Hemoglobin 33.8H, Mean Corpuscular Hemoglobin Concent 30.7L, Red Cell Distribution Width 20.9H, Platelet Count 110L, Mean Platelet Volume 10.5H, Neutrophils (%) (Auto) , Lymphocytes (%) (Auto) , Monocytes (%) (Auto) , Eosinophils (%) (Auto) , Basophils (%) (Auto) , Differential Total Cells Counted 100, Neutrophils % ( Manual) 92H, Lymphocytes % (Manual) 5L, Monocytes % (Manual) 1, Eosinophils % ( Manual) 2, Basophils % (Manual) 0, Band Neutrophils 0, Platelet Estimate DecreasedL, Platelet Morphology , Giant Platelets Occasional, Hypochromasia 1+, Anisocytosis 2+, Macrocytosis 1+, Ovalocytes Occasional, Sodium Level 140, Potassium Level 4.2, Chloride Level 108H, Carbon Dioxide Level 25, Anion Gap 7, Blood Urea Nitrogen 9, Creatinine 0.8, Estimat Glomerular Filtration Rate , Glucose Level 79, Calcium Level 8.1L Height (Feet): 5 Height (Inches): 3.00 Weight (Pounds): 156 Objective Elderly woman NCAT supple CTA RRR abd soft no edema Juwan Andrade MD Feb 10, 2018 20:23
[2018-02-11] VITALS: BP 149/81
[2018-02-11 04:00] VITALS: BP 155/73
[2018-02-11 08:00] VITALS: BP 119/66
[2018-02-11] MEDS: Dabigatran 150mg cap ORAL SCH ×2 (08:20→21:02)
[2018-02-11] MEDS: Thiamine 100mg tab ORAL SCH (08:20)
[2018-02-11] MEDS: Hydroxyurea 500mg cap ORAL SCH (08:23)
[2018-02-11] MEDS: Metoprolol Tartrate 50mg tab ORAL SCH ×2 (08:23→21:02)
[2018-02-11] MEDS: Amiodarone 200mg tab ORAL SCH (08:23)
[2018-02-11 09:31] LABS: HEMATOCRIT 31.9 % (37.0-47.0); HEMOGLOBIN 9.6 G/DL (12.0-16.0); MEAN CORPUSCULAR VOLUME 111 FL (80-99); PLATELET COUNT 116 K/UL (150-450); RED BLOOD COUNT 2.88 M/UL (4.20-5.40); RED CELL DISTRIBUTION WIDTH 19.7 % (11.6-14.8); WHITE BLOOD COUNT 6.9 K/UL (4.8-10.8)
[2018-02-11 09:36] LABS: ANION GAP 7 mmol/L (5-15); BLOOD UREA NITROGEN 9 mg/dL (7-18); CALCIUM 8.3 MG/DL (8.5-10.1); CARBON DIOXIDE 27 MMOL/L (21-32); CHLORIDE 104 MMOL/L (98-107); CREATININE 0.8 MG/DL (0.55-1.30); SODIUM 138 MMOL/L (136-145)
[2018-02-11 12:00] VITALS: BP 121/72
--- NOTE | 2018-02-11 14:24 | Internal Med Progress Note ---
Subjective Date of Service: Feb 11, 2018 Physician Name Roshan Edwards Attending Physician Antonio Adrian MD Current Medications Medications (Trade) Dose Ordered Sig/Escobar Route PRN Reason Start Time Stop Time Status Last Admin Dose Admin Acetaminophen (Tylenol) 650 mg Q6H PRN ORAL Prn Pain/Headache/Temp > 101 02/08/18 21:45 03/07/18 15:44 02/10/18 05:56 Amiodarone HCl (Cordarone) 200 mg DAILY ORAL 02/09/18 09:00 03/07/18 15:44 02/11/18 08:23 Calcium Carbonate (Os-Zeb) 1,250 mg DAILY ORAL 02/09/18 09:00 03/07/18 15:44 02/11/18 08:24 Clonidine HCl (Catapres Tab) 0.1 mg Q8H PRN ORAL SBP >170mmHg 02/08/18 23:45 03/07/18 15:44 Dabigatran (Pradaxa) 150 mg Q12HR ORAL 02/09/18 09:00 03/07/18 17:59 02/11/18 08:20 Dextrose (Dextrose 50%) 25 ml Q30M PRN IV Hypoglycemia 02/08/18 21:15 03/07/18 15:44 Dextrose (Dextrose 50%) 50 ml Q30M PRN IV Hypoglycemia 02/08/18 21:15 03/07/18 15:44 Diphenhydramine HCl (Benadryl) 25 mg Q4H PRN IV Itching 02/08/18 23:45 03/07/18 15:44 Gabapentin (Neurontin) 400 mg Q8HR ORAL 02/08/18 22:00 03/07/18 21:59 02/11/18 13:24 Hydroxyurea (Hydrea) 500 mg DAILY ORAL 02/11/18 09:00 02/20/18 17:59 02/11/18 08:23 Metoprolol Tartrate (Lopressor) 50 mg EVERY 12 HOURS ORAL 02/09/18 09:00 03/07/18 20:59 02/11/18 08:23 Midodrine (Pro-Amatine) 5 mg THREE TIMES A DAY ORAL 02/09/18 09:00 03/09/18 08:59 02/11/18 13:24 Thiamine HCl (Vitamin B1) 100 mg DAILY ORAL 02/09/18 09:00 03/07/18 15:44 02/11/18 08:20 Allergies: Coded Allergies: No Known Allergies (Unverified , 04/30/16) ROS Limited/Unobtainable: No Constitutional: Reports: no symptoms HEENT: Reports: no symptoms Cardiovascular: Reports: no symptoms Respiratory: Reports: no symptoms Gastrointestinal/Abdominal: Reports: no symptoms Genitourinary: Reports: no symptoms Neurologic/Psychiatric: Reports: no symptoms Subjective 77 YO F admitted with dehydration and hypotension. S/P endoscopy 02/07/18. Cover for Int Germán-DR Adrian Objective Last Vital Signs Date Time Temp Pulse Resp B/P (MAP) Pulse Ox O2 Delivery O2 Flow Rate FiO2 02/11/18 12:00 97.5 60 18 121/72 (88) 97 02/11/18 09:00 Room Air 02/07/18 11:45 3 Laboratory Tests Test 02/11/18 08:00 White Blood Count 6.9 K/UL (4.8-10.8) Red Blood Count 2.88 M/UL (4.20-5.40) L Hemoglobin 9.6 G/DL (12.0-16.0) L Hematocrit 31.9 % (37.0-47.0) L Mean Corpuscular Volume 111 FL (80-99) H Mean Corpuscular Hemoglobin 33.2 PG (27.0-31.0) H Mean Corpuscular Hemoglobin Concent 30.0 G/DL (32.0-36.0) L Red Cell Distribution Width 19.7 % (11.6-14.8) H Platelet Count 116 K/UL (150-450) L Mean Platelet Volume 10.1 FL (6.5-10.1) Neutrophils (%) (Auto) % (45.0-75.0) Lymphocytes (%) (Auto) % (20.0-45.0) Monocytes (%) (Auto) % (1.0-10.0) Eosinophils (%) (Auto) % (0.0-3.0) Basophils (%) (Auto) % (0.0-2.0) Differential Total Cells Counted 100 Neutrophils % (Manual) 86 % (45-75) H Lymphocytes % (Manual) 6 % (20-45) L Monocytes % (Manual) 2 % (1-10) Eosinophils % (Manual) 0 % (0-3) Basophils % (Manual) 0 % (0-2) Band Neutrophils 6 % (0-8) Platelet Estimate Decreased L Platelet Morphology Giant Platelets Occasional Hypochromasia 1+ Anisocytosis 2+ Macrocytosis 1+ Ovalocytes Occasional Sodium Level 138 MMOL/L (136-145) Potassium Level 4.0 MMOL/L (3.5-5.1) Chloride Level 104 MMOL/L (98-107) Carbon Dioxide Level 27 MMOL/L (21-32) Anion Gap 7 mmol/L (5-15) Blood Urea Nitrogen 9 mg/dL (7-18) Creatinine 0.8 MG/DL (0.55-1.30) Estimat Glomerular Filtration Rate mL/min (>60) Glucose Level 108 MG/DL (74-106) H Calcium Level 8.3 MG/DL (8.5-10.1) L Intake and Output 02/10/18 02/11/18 18:59 06:59 Intake Total 450 ml 120 ml Balance 450 ml 120 ml Intake Oral 450 ml 120 ml # Voids 3 4 # Bowel Movements 3 Objective Objective GENERAL: The patient is awake and responsive, in no acute distress. HEAD AND NECK: Pupils are reactive to light. Extraocular movements are intact. Neck was supple. No JVD. LUNGS: Good air entry. No wheezing or rales. HEART: S1, S2. Regular rhythm. No murmur. Chest wall: pacemaker on left side of chest. ABDOMEN: Soft, nondistended, and nontender. Positive bowel sounds. EXTREMITIES: No cyanosis, clubbing, or edema. MUSCULOSKELETAL: Motor intact 5/5. NEUROLOGIC: Cranial nerves II through XII are grossly intact. Moves all four extremities. Gait was not assessed due to the patient's status. Assessment/Plan Assessment/Plan Assessment/Plan Assessment/Plan 1. Dehydration and weakness, Hypotension. 2. Weight loss, nausea, and abdominal pain. 3. Chronic atrial fibrillation. 4. Polycythemia vera. 5. Thrombocytopenia. 6. Hypertension. 7. Obstructive sleep apnea. 8. Coronary artery disease. 9. Dyslipidemia. 10. Chronic systolic dysfunction. 11. Gastritis. 12. Gastric wall thickening PLAN: 1. in Telemetry. 2. We will follow up laboratory. 3. IVF hydration, bolus. 4. Dr. Freitas and Dr. Kaiser consultations 5. Code status, Full Code. 6. DVT prophylaxis: Pradaxa. 7. Discharge planning 8. Gastric wall thickening-await EUS-see GI note 9. Tolerating regular diet Roshan Edwards MD Feb 11, 2018 14:24
--- NOTE | 2018-02-11 15:51 | Cardiac Electrophysiology PN ---
Assessment/Plan Assessment/Plan 1. Weakness and recurrent falls. Ruled out for myocardial infarction. Her EKG showed sinus rhythm with nonspecific ST-T wave abnormality and LVH Echo EF 65% and no pericardial effusion. 2. Status post [employer] pacemaker. The pacemaker was interrogated in the office which showed LV normal function. 3. Hypotension. Resolved off lisinopril and with iv fluids.DC Midodrine 4. Paroxysmal atrial fibrillation, in sinus rhythm on amiodarone, metoprolol 50 bid and Pradaxa 5. Generalized weakness likely from dehydration and hypotension. 6. History of coronary artery disease remains without any chest pain. 7. Polycythemia vera on hydroxyurea. 8. Anemia s/p EGD that showed gastritis by Dr Job LIN RN Subjective Subjective Comfortable in NAD.Feeling better. DC planning in progress. Objective Last 24 Hour Vital Signs Date Time Temp Pulse Resp B/P (MAP) Pulse Ox O2 Delivery O2 Flow Rate FiO2 02/11/18 12:00 97.5 60 18 121/72 (88) 97 02/11/18 09:00 Room Air 02/11/18 08:23 62 119/66 02/11/18 08:00 98.1 62 18 119/66 (83) 96 02/11/18 04:00 98.1 60 18 155/73 (100) 97 02/11/18 00:00 97.8 60 18 149/81 (103) 95 02/10/18 23:06 Room Air 02/10/18 21:00 61 151/74 02/10/18 20:00 98.0 61 18 151/74 (99) 95 02/10/18 16:00 97.5 65 20 120/83 (95) 100 Intake and Output 02/10/18 02/11/18 18:59 06:59 Intake Total 450 ml 120 ml Balance 450 ml 120 ml Intake Oral 450 ml 120 ml # Voids 3 4 # Bowel Movements 3 Laboratory Tests Test 02/11/18 08:00 White Blood Count 6.9 K/UL (4.8-10.8) Red Blood Count 2.88 M/UL (4.20-5.40) L Hemoglobin 9.6 G/DL (12.0-16.0) L Hematocrit 31.9 % (37.0-47.0) L Mean Corpuscular Volume 111 FL (80-99) H Mean Corpuscular Hemoglobin 33.2 PG (27.0-31.0) H Mean Corpuscular Hemoglobin Concent 30.0 G/DL (32.0-36.0) L Red Cell Distribution Width 19.7 % (11.6-14.8) H Platelet Count 116 K/UL (150-450) L Mean Platelet Volume 10.1 FL (6.5-10.1) Neutrophils (%) (Auto) % (45.0-75.0) Lymphocytes (%) (Auto) % (20.0-45.0) Monocytes (%) (Auto) % (1.0-10.0) Eosinophils (%) (Auto) % (0.0-3.0) Basophils (%) (Auto) % (0.0-2.0) Differential Total Cells Counted 100 Neutrophils % (Manual) 86 % (45-75) H Lymphocytes % (Manual) 6 % (20-45) L Monocytes % (Manual) 2 % (1-10) Eosinophils % (Manual) 0 % (0-3) Basophils % (Manual) 0 % (0-2) Band Neutrophils 6 % (0-8) Platelet Estimate Decreased L Platelet Morphology Giant Platelets Occasional Hypochromasia 1+ Anisocytosis 2+ Macrocytosis 1+ Ovalocytes Occasional Sodium Level 138 MMOL/L (136-145) Potassium Level 4.0 MMOL/L (3.5-5.1) Chloride Level 104 MMOL/L (98-107) Carbon Dioxide Level 27 MMOL/L (21-32) Anion Gap 7 mmol/L (5-15) Blood Urea Nitrogen 9 mg/dL (7-18) Creatinine 0.8 MG/DL (0.55-1.30) Estimat Glomerular Filtration Rate mL/min (>60) Glucose Level 108 MG/DL (74-106) H Calcium Level 8.3 MG/DL (8.5-10.1) L Objective HEAD AND NECK: No JVD. LUNGS: Clear. CARDIOVASCULAR: Regular S1 and S2 with no gallop. Soft systolic murmur. Pacemaker in the left subclavian. ABDOMEN: Soft. EXTREMITIES: No pitting edema. River Freitas MD Feb 11, 2018 15:51
[2018-02-11 16:00] VITALS: BP 136/74
--- NOTE | 2018-02-11 19:26 | General Progress Note ---
Assessment/Plan Assessment/Plan Assessment - submucosal gastric lesion - P. Vera - KELVIN - HTN - CHF - Afib, pacer - constipation Recommendation - laxative PRN - push po - follow Sx and exam - EUS at later date Subjective Allergies: Coded Allergies: No Known Allergies (Unverified , 04/30/16) Subjective Feels OK no abd complaints eating OK (+) BM Objective Last 24 Hour Vital Signs Date Time Temp Pulse Resp B/P (MAP) Pulse Ox O2 Delivery O2 Flow Rate FiO2 02/11/18 16:00 98.1 60 19 136/74 (94) 100 02/11/18 12:00 97.5 60 18 121/72 (88) 97 02/11/18 09:00 Room Air 02/11/18 08:23 62 119/66 02/11/18 08:00 98.1 62 18 119/66 (83) 96 02/11/18 04:00 98.1 60 18 155/73 (100) 97 02/11/18 00:00 97.8 60 18 149/81 (103) 95 02/10/18 23:06 Room Air 02/10/18 21:00 61 151/74 02/10/18 20:00 98.0 61 18 151/74 (99) 95 Intake and Output 02/10/18 02/11/18 19:00 07:00 Intake Total 450 ml 120 ml Balance 450 ml 120 ml Intake Oral 450 ml 120 ml # Voids 3 4 # Bowel Movements 3 Laboratory Tests 02/11/18 08:00: White Blood Count 6.9, Red Blood Count 2.88L, Hemoglobin 9.6L, Hematocrit 31.9L , Mean Corpuscular Volume 111H, Mean Corpuscular Hemoglobin 33.2H, Mean Corpuscular Hemoglobin Concent 30.0L, Red Cell Distribution Width 19.7H, Platelet Count 116L, Mean Platelet Volume 10.1, Neutrophils (%) (Auto) , Lymphocytes (%) (Auto) , Monocytes (%) (Auto) , Eosinophils (%) (Auto) , Basophils (%) (Auto) , Differential Total Cells Counted 100, Neutrophils % ( Manual) 86H, Lymphocytes % (Manual) 6L, Monocytes % (Manual) 2, Eosinophils % ( Manual) 0, Basophils % (Manual) 0, Band Neutrophils 6, Platelet Estimate DecreasedL, Platelet Morphology , Giant Platelets Occasional, Hypochromasia 1+, Anisocytosis 2+, Macrocytosis 1+, Ovalocytes Occasional, Sodium Level 138, Potassium Level 4.0, Chloride Level 104, Carbon Dioxide Level 27, Anion Gap 7, Blood Urea Nitrogen 9, Creatinine 0.8, Estimat Glomerular Filtration Rate , Glucose Level 108H, Calcium Level 8.3L Height (Feet): 5 Height (Inches): 3.00 Weight (Pounds): 156 Objective Elderly woman NCAT supple CTA RRR abd soft no edema Juwan Andrade MD Feb 11, 2018 19:26
[2018-02-11 20:00] VITALS: BP 148/71
[2018-02-12] VITALS: BP 140/70
[2018-02-12 04:45] VITALS: BP 142/69
[2018-02-12 06:48] LABS: ANION GAP 4 mmol/L (5-15); BLOOD UREA NITROGEN 7 mg/dL (7-18); CALCIUM 8.6 MG/DL (8.5-10.1); CARBON DIOXIDE 27 MMOL/L (21-32); CHLORIDE 105 MMOL/L (98-107); CREATININE 0.8 MG/DL (0.55-1.30); POTASSIUM 4.4 MMOL/L (3.5-5.1); SODIUM 136 MMOL/L (136-145)
[2018-02-12 07:02] LABS: HEMATOCRIT 37.8 % (37.0-47.0); HEMOGLOBIN 11.4 G/DL (12.0-16.0); MEAN CORPUSCULAR VOLUME 109 FL (80-99); PLATELET COUNT 126 K/UL (150-450); RED BLOOD COUNT 3.45 M/UL (4.20-5.40); RED CELL DISTRIBUTION WIDTH 20.2 % (11.6-14.8); WHITE BLOOD COUNT 7.4 K/UL (4.8-10.8)
[2018-02-12 08:00] VITALS: BP 128/69
[2018-02-12] MEDS: Thiamine 100mg tab ORAL SCH (08:17)
[2018-02-12] MEDS: Dabigatran 150mg cap ORAL SCH (08:17)
[2018-02-12] MEDS: Amiodarone 200mg tab ORAL SCH (08:17)
[2018-02-12] MEDS: Hydroxyurea 500mg cap ORAL SCH (08:18)
[2018-02-12] MEDS: Metoprolol Tartrate 50mg tab ORAL SCH (08:18)
[2018-02-12 12:00] VITALS: BP 127/72
--- NOTE | 2018-02-12 13:18 | Cardiac Electrophysiology PN ---
Assessment/Plan Assessment/Plan 1. Weakness and recurrent falls. Ruled out for myocardial infarction. Her EKG showed sinus rhythm with nonspecific ST-T wave abnormality and LVH Echo EF 65% and no pericardial effusion. 2. Status post [employer] pacemaker with normal function. 3. Hypotension. Resolved off lisinopril and with iv fluids. 4. Paroxysmal atrial fibrillation, in sinus rhythm on amiodarone, metoprolol 50 bid and Pradaxa 5. Generalized weakness likely from dehydration and hypotension. 6. History of coronary artery disease remains without any chest pain. 7. Polycythemia vera on hydroxyurea. 8. Anemia s/p EGD that showed gastritis by Dr Job LIN RN Subjective Subjective Comfortable in NAD. DC planning today. No CP or SOB Objective Last 24 Hour Vital Signs Date Time Temp Pulse Resp B/P (MAP) Pulse Ox O2 Delivery O2 Flow Rate FiO2 02/12/18 12:00 97.3 60 18 127/72 (90) 95 02/12/18 09:00 Room Air 02/12/18 08:18 69 128/69 02/12/18 08:00 97.8 69 18 128/69 (88) 95 02/12/18 04:45 97.4 67 18 142/69 (93) 95 02/12/18 00:00 97.3 63 18 140/70 (93) 94 02/11/18 22:25 Room Air 02/11/18 21:02 60 148/71 02/11/18 20:00 97.9 60 18 148/71 (96) 94 02/11/18 16:00 98.1 60 19 136/74 (94) 100 Intake and Output 02/11/18 02/12/18 19:00 07:00 Intake Total 600 ml 120 ml Output Total 900 ml Balance 600 ml -780 ml Intake Oral 600 ml 120 ml Output Urine Total 900 ml # Voids 5 # Bowel Movements 1 Laboratory Tests Test 02/12/18 05:40 White Blood Count 7.4 K/UL (4.8-10.8) Red Blood Count 3.45 M/UL (4.20-5.40) L Hemoglobin 11.4 G/DL (12.0-16.0) L Hematocrit 37.8 % (37.0-47.0) Mean Corpuscular Volume 109 FL (80-99) H Mean Corpuscular Hemoglobin 32.9 PG (27.0-31.0) H Mean Corpuscular Hemoglobin Concent 30.1 G/DL (32.0-36.0) L Red Cell Distribution Width 20.2 % (11.6-14.8) H Platelet Count 126 K/UL (150-450) L Mean Platelet Volume 10.2 FL (6.5-10.1) H Neutrophils (%) (Auto) % (45.0-75.0) Lymphocytes (%) (Auto) % (20.0-45.0) Monocytes (%) (Auto) % (1.0-10.0) Eosinophils (%) (Auto) % (0.0-3.0) Basophils (%) (Auto) % (0.0-2.0) Differential Total Cells Counted 100 Neutrophils % (Manual) 91 % (45-75) H Lymphocytes % (Manual) 6 % (20-45) L Monocytes % (Manual) 1 % (1-10) Eosinophils % (Manual) 2 % (0-3) Basophils % (Manual) 0 % (0-2) Band Neutrophils 0 % (0-8) Nucleated Red Blood Cells 1 /100 WBC Platelet Estimate Decreased L Platelet Morphology Normal Hypochromasia 1+ Anisocytosis 2+ Macrocytosis 1+ Sodium Level 136 MMOL/L (136-145) Potassium Level 4.4 MMOL/L (3.5-5.1) Chloride Level 105 MMOL/L (98-107) Carbon Dioxide Level 27 MMOL/L (21-32) Anion Gap 4 mmol/L (5-15) L Blood Urea Nitrogen 7 mg/dL (7-18) Creatinine 0.8 MG/DL (0.55-1.30) Estimat Glomerular Filtration Rate mL/min (>60) Glucose Level 88 MG/DL (74-106) Calcium Level 8.6 MG/DL (8.5-10.1) Objective HEAD AND NECK: No JVD. LUNGS: Clear. CARDIOVASCULAR: Regular S1 and S2 with no gallop. Soft systolic murmur. Pacemaker in the left subclavian. ABDOMEN: Soft. EXTREMITIES: No pitting edema. River Freitas MD Feb 12, 2018 13:18
--- NOTE | 2018-02-12 13:42 | Internal Med Progress Note ---
Subjective Date of Service: Feb 12, 2018 Physician Name Roshan Edwards Attending Physician Antonio Adrian MD Current Medications Medications (Trade) Dose Ordered Sig/Escobar Route PRN Reason Start Time Stop Time Status Last Admin Dose Admin Acetaminophen (Tylenol) 650 mg Q6H PRN ORAL Prn Pain/Headache/Temp > 101 02/08/18 21:45 03/07/18 15:44 02/10/18 05:56 Amiodarone HCl (Cordarone) 200 mg DAILY ORAL 02/09/18 09:00 03/07/18 15:44 02/12/18 08:17 Calcium Carbonate (Os-Zeb) 1,250 mg DAILY ORAL 02/09/18 09:00 03/07/18 15:44 02/12/18 08:18 Clonidine HCl (Catapres Tab) 0.1 mg Q8H PRN ORAL SBP >170mmHg 02/08/18 23:45 03/07/18 15:44 Dabigatran (Pradaxa) 150 mg Q12HR ORAL 02/09/18 09:00 03/07/18 17:59 02/12/18 08:17 Dextrose (Dextrose 50%) 25 ml Q30M PRN IV Hypoglycemia 02/08/18 21:15 03/07/18 15:44 Dextrose (Dextrose 50%) 50 ml Q30M PRN IV Hypoglycemia 02/08/18 21:15 03/07/18 15:44 Diphenhydramine HCl (Benadryl) 25 mg Q4H PRN IV Itching 02/08/18 23:45 03/07/18 15:44 Gabapentin (Neurontin) 400 mg Q8HR ORAL 02/08/18 22:00 03/07/18 21:59 02/12/18 05:44 Hydroxyurea (Hydrea) 500 mg DAILY ORAL 02/11/18 09:00 02/20/18 17:59 02/12/18 08:18 Metoprolol Tartrate (Lopressor) 50 mg EVERY 12 HOURS ORAL 02/09/18 09:00 03/07/18 20:59 02/12/18 08:18 Thiamine HCl (Vitamin B1) 100 mg DAILY ORAL 02/09/18 09:00 03/07/18 15:44 02/12/18 08:17 Allergies: Coded Allergies: No Known Allergies (Unverified , 04/30/16) ROS Limited/Unobtainable: No Constitutional: Reports: no symptoms HEENT: Reports: no symptoms Cardiovascular: Reports: no symptoms Respiratory: Reports: no symptoms Gastrointestinal/Abdominal: Reports: no symptoms Genitourinary: Reports: no symptoms Neurologic/Psychiatric: Reports: no symptoms Subjective 77 YO F admitted with dehydration and hypotension. S/P endoscopy 02/07/18. Cover for Int Germán-DR Adrian Objective Last Vital Signs Date Time Temp Pulse Resp B/P (MAP) Pulse Ox O2 Delivery O2 Flow Rate FiO2 02/12/18 12:00 97.3 60 18 127/72 (90) 95 02/12/18 09:00 Room Air 02/07/18 11:45 3 Laboratory Tests Test 02/12/18 05:40 White Blood Count 7.4 K/UL (4.8-10.8) Red Blood Count 3.45 M/UL (4.20-5.40) L Hemoglobin 11.4 G/DL (12.0-16.0) L Hematocrit 37.8 % (37.0-47.0) Mean Corpuscular Volume 109 FL (80-99) H Mean Corpuscular Hemoglobin 32.9 PG (27.0-31.0) H Mean Corpuscular Hemoglobin Concent 30.1 G/DL (32.0-36.0) L Red Cell Distribution Width 20.2 % (11.6-14.8) H Platelet Count 126 K/UL (150-450) L Mean Platelet Volume 10.2 FL (6.5-10.1) H Neutrophils (%) (Auto) % (45.0-75.0) Lymphocytes (%) (Auto) % (20.0-45.0) Monocytes (%) (Auto) % (1.0-10.0) Eosinophils (%) (Auto) % (0.0-3.0) Basophils (%) (Auto) % (0.0-2.0) Differential Total Cells Counted 100 Neutrophils % (Manual) 91 % (45-75) H Lymphocytes % (Manual) 6 % (20-45) L Monocytes % (Manual) 1 % (1-10) Eosinophils % (Manual) 2 % (0-3) Basophils % (Manual) 0 % (0-2) Band Neutrophils 0 % (0-8) Nucleated Red Blood Cells 1 /100 WBC Platelet Estimate Decreased L Platelet Morphology Normal Hypochromasia 1+ Anisocytosis 2+ Macrocytosis 1+ Sodium Level 136 MMOL/L (136-145) Potassium Level 4.4 MMOL/L (3.5-5.1) Chloride Level 105 MMOL/L (98-107) Carbon Dioxide Level 27 MMOL/L (21-32) Anion Gap 4 mmol/L (5-15) L Blood Urea Nitrogen 7 mg/dL (7-18) Creatinine 0.8 MG/DL (0.55-1.30) Estimat Glomerular Filtration Rate mL/min (>60) Glucose Level 88 MG/DL (74-106) Calcium Level 8.6 MG/DL (8.5-10.1) Intake and Output 02/11/18 02/12/18 18:59 06:59 Intake Total 600 ml 120 ml Output Total 900 ml Balance 600 ml -780 ml Intake Oral 600 ml 120 ml Output Urine Total 900 ml # Voids 5 # Bowel Movements 1 Objective Objective GENERAL: The patient is awake and responsive, in no acute distress. HEAD AND NECK: Pupils are reactive to light. Extraocular movements are intact. Neck was supple. No JVD. LUNGS: Good air entry. No wheezing or rales. HEART: S1, S2. Regular rhythm. No murmur. Chest wall: pacemaker on left side of chest. ABDOMEN: Soft, nondistended, and nontender. Positive bowel sounds. EXTREMITIES: No cyanosis, clubbing, or edema. MUSCULOSKELETAL: Motor intact 5/5. NEUROLOGIC: Cranial nerves II through XII are grossly intact. Moves all four extremities. Gait was not assessed due to the patient's status. Assessment/Plan Assessment/Plan Assessment/Plan Assessment/Plan 1. Dehydration and weakness, Hypotension. 2. Weight loss, nausea, and abdominal pain. 3. Chronic atrial fibrillation. 4. Polycythemia vera. 5. Thrombocytopenia. 6. Hypertension. 7. Obstructive sleep apnea. 8. Coronary artery disease. 9. Dyslipidemia. 10. Chronic systolic dysfunction. 11. Gastritis. 12. Gastric wall thickening PLAN: 1. in Telemetry. 2. We will follow up laboratory. 3. IVF hydration, bolus. 4. Dr. Freitas and Dr. Kaiser consultations 5. Code status, Full Code. 6. DVT prophylaxis: Pradaxa. 7. Discharge planning 8. Gastric wall thickening-await EUS-see GI note 9. Tolerating regular diet 10. Discharge home with [facility] home health today Roshan Edwards MD Feb 12, 2018 13:42
--- NOTE | 2018-02-13 09:55 | General Progress Note ---
Assessment/Plan Assessment/Plan Assessment - submucosal gastric lesion - P. Vera - KELVIN - HTN - CHF - Afib, pacer - constipation Recommendation - laxative PRN - push po - follow Sx and exam - EUS at later date Subjective Allergies: Coded Allergies: No Known Allergies (Unverified , 04/30/16) Subjective Delayed entry note date of this encounter is 02/12/2018, in am Feels OK no abd complaints eating OK (+) BM Objective Last 24 Hour Vital Signs Date Time Temp Pulse Resp B/P (MAP) Pulse Ox O2 Delivery O2 Flow Rate FiO2 02/12/18 12:00 97.3 60 18 127/72 (90) 95 Intake and Output 02/12/18 02/13/18 19:00 07:00 Intake Total 240 ml Output Total 1500 ml Balance -1260 ml Intake Oral 240 ml Output Urine Total 1500 ml Height (Feet): 5 Height (Inches): 3.00 Weight (Pounds): 156 Objective Elderly woman NCAT supple CTA RRR abd soft no edema Juwan Andrade MD Feb 13, 2018 09:55
--- NOTE | 2018-02-13 11:05 | Discharge Summary ---
Discharge Summary Discharge Summary _ DATE OF ADMISSION: 02/05/2018 DATE OF DISCHARGE: 02/12/2018 DISCHARGED BY: Dr. Antonio Adrian CONSULTANTS: Dr. River Rico BRIEF HOSPITAL COURSE: Patient is a 77-year-old female, with past medical history significant for chronic atrial fibrillation, polycythemia vera hypertension, obstructive sleep apnea, history of myocardial infarction in the past, anemia, congestive heart failure, status post pacemaker and total abdominal hysterectomy, who presented to the hospital complaining of weakness, fatigue and recurrent falls. She denied any head trauma. She said she had nausea but no vomiting. Denied any loss of consciousness. Denied any double vision. On evaluation at ED, blood pressure was on the low side. CT of the head showed no evidence of acute intracranial hemorrhage, mass-effect or midline shift. Blood work showed no leukocytosis, hemoglobin and hematocrit were stable. Troponin was negative. Urinalysis with +1 blood, +2 protein and few squamous cells and epithelial cells. EKG showed normal sinus rhythm with a ventricular rate of 62. She was admitted to medical/surgical floor dehydration and weakness. She was admitted for evaluation of dehydration and weakness. Patient was hypotensive, systolic blood pressure in the 70s. All hypertensives were discontinued. She was started on midodrine. She was given IV bolus. Blood pressure improved post discontinuation of antihypertensives and midodrine. Troponin was negative x3. She was ruled out for IA. EKG showed sinus rhythm with nonspecific ST to T wave abnormality and LVH. Patient has paroxysmal atrial fibrillation, she was continue on amiodarone, metoprolol and Pradaxa. Echocardiogram showed ejection fraction 60-65%. Venous duplex of lower extremity was negative for acute DVT. GI was consulted. On 02/07/2018, she underwent EGD. Findings showed gastritis and a submucosal lesion on about 3 cm below that GE junction. She had a CT of the abdomen and pelvis that showed splenomegaly, well-circumscribed low- attenuation structure in the superior spleen, most likely cyst. Abdominal ultrasound showed borderline hepato-and splenomegaly. He was recommended outpatient EUS for further evaluation of gastric mucosal lesion. Diet was advanced. She was given bowel regimen and laxatives. She was eventually cleared for discharge home with home health. FINAL DIAGNOSES: Dehydration and weakness, with hypotension Weight loss, nausea and abdominal pain Chronic atrial fibrillation with pacemaker Polycythemia vera Thrombocytopenia Hypertension Obstructive sleep apnea Coronary artery disease Dyslipidemia Chronic systolic dysfunction Gastritis Gastric wall thickening/submucosal gastric lesion Constipation Status post EGD on 02/07/2018 DISPOSITION: Patient was discharged home with home health. DISCHARGE MEDICATIONS: Refer to Discharge Medication List. DISCHARGE INSTRUCTIONS: Follow-up in a week. I have been assigned to dictate discharge summary on this account, and I was not involved in the patient's management. Lee Ann Ibrahim NP Feb 13, 2018 11:05
== END 2018-02-12 15:06 | disposition home or self-care (01) | DRG 641 ==
LOC: EMR 12:21 → 2E 12:28 → EDBEDREQ 13:05 → 2E 23:00 → 4E 02-08 22:15
PROC: 0DB78ZX Excision of Stomach, Pylorus, Via Natural or Artificial Opening Endoscopic, Diagnostic (ICD-10-PCS; principal; 2018-02-07 10:49)
PROC: 0DB68ZX Excision of Stomach, Via Natural or Artificial Opening Endoscopic, Diagnostic (ICD-10-PCS; principal; 2018-02-07 10:49)
DX: E86.0 Dehydration (principal); I50.22 Chronic systolic (congestive) heart failure; I95.9 Hypotension, unspecified; I48.2 Chronic atrial fibrillation; I11.0 Hypertensive heart disease with heart failure; I25.2 Old myocardial infarction; D45 Polycythemia vera; I10 Essential (primary) hypertension; E78.5 Hyperlipidemia, unspecified; I25.10 Atherosclerotic heart disease of native coronary artery without angina pectoris; Z87.891 Personal history of nicotine dependence; Z95.0 Presence of cardiac pacemaker; R63.4 Abnormal weight loss; D69.6 Thrombocytopenia, unspecified; K59.00 Constipation, unspecified; Z79.02 Long term (current) use of antithrombotics/antiplatelets; K29.40 Chronic atrophic gastritis without bleeding; K31.9 Disease of stomach and duodenum, unspecified; R29.6 Repeated falls; R53.1 Weakness
CPT/HCPCS: 36415; 70450; 71045; 74177; 76700; 80048; 80053; 81003; 82465; 82533; 82550; 82553; 83540; 83550; 83605; 83690; 83735; 83880; 84100; 84443; 84484; 85007; 85025; 85610; 85730; 86705; 86709; 86710; 86803; 87040; 87340; 93005; 93306; 93970; 94003; 94150; 96361; 96365; 99285

== ENCOUNTER 2018-04-07 18:06 | Emergency (ER) | payer MEDICARE, OTHER ==
[~2018-04-07] VITALS: Ht 162.6 cm; Wt 68.0 kg
--- NOTE | 2018-04-07 18:14 | NUR ---
ED Nurse Note: Pt came in due to bleeding of her right upper gum after a tooth extraction today. Pt takes ibuprofen 800mg and amoxicillin 500mg prescribed by her dentist. Pt is AAO x4, follows commands and speaks in full sentences. Noted bright red blood in tissue on her gum for pressure.
--- NOTE | 2018-04-07 19:05 | NUR ---
HAND-OFF: Report given to Tamiko ROTH.
[2018-04-07 19:27] VITALS: BP 136/72
[2018-04-07] MEDS ORDERED: Tranexamic Acid(Epistaxis Use) TOPIC ONE ×2 (19:54→20:00)
--- NOTE | 2018-04-07 20:30 | NUR ---
ER Nurse Note: Pt a&ox4, VSS, no signs of distress. Pt bleeding from gum after tooth extraction; minimal bleeding. Pt calm. Right cheeck swollen, provided ice pack. Awaiting ERMD orders. All safety measures met; will continue to montior.
--- NOTE | 2018-04-07 20:39 | Emergency Room Report ---
History of Present Illness General Chief Complaint: Toothache Source: Patient, Medical Record Present Illness HPI .77-year-old female status post tooth extraction this morning, complains of bleeding with minimum relief from drug pressure. She is on Pradaxa. She states that she started productive about 2 days ago. Denies any other associated symptoms. Denies any weakness. Allergies: Coded Allergies: No Known Allergies (Unverified , 04/30/16) Patient History Past Medical History: HTN, AFib Pertinent Family History: none Nursing Documentation-PMH Past Medical History: No History, Except For Hx Cardiac Problems: Yes Hx Hypertension: Yes Hx Pacemaker: Yes Hx Asthma: No Hx COPD: No Hx Diabetes: No Hx Cancer: No Hx Gastrointestinal Problems: Yes Hx Dialysis: No Hx Neurological Problems: Yes Hx Cerebrovascular Accident: No Hx Transient Ischemic Attacks: Yes Hx Seizures: No Hx Headaches: Yes Hx Numbness: Yes Hx Weakness: Yes - Generalized weakness Review of Systems All Other Systems: negative except mentioned in HPI Physical Exam Vital Signs Date Time Temp Pulse Resp B/P (MAP) Pulse Ox O2 Delivery O2 Flow Rate FiO2 04/07/18 18:08 97.5 61 18 163/113 100 Room Air ENT: other - miminal bleeding at upper right molar area where the tooth extraction occured Medical Decision Making Diagnostic Impression: Primary Impression: Tooth avulsion ER Course Patient was seen and examined. Patient had continuous bleeding. Therefore, I put direct pressure and I also used TXA solution. The patient achieved adequate hemostasis. No further complications. She is alert. The patient is requested to follow-up with her primary care physician. She should withhold a productive for 2 days due to the possible risk of further bleeding. And she should be continue in 2 days. And follow with her primary care physician as well. Last Vital Signs Date Time Temp Pulse Resp B/P (MAP) Pulse Ox O2 Delivery O2 Flow Rate FiO2 04/07/18 19:27 97.5 82 18 136/72 100 Room Air Disposition: HOME, SELF-CARE Condition: Stable Referrals: Antonio Adrian MD (PCP) Patient Instructions: Dental Pain SAMUEL GOMEZ Apr 07, 2018 20:39
[2018-04-07] MEDS ORDERED: Morphine Sulfate 2mg/ml Inj(IV/IM USE ONLY) IM ONE (21:15)
[2018-04-07 21:35] VITALS: BP 130/68
[2018-04-07 22:55] VITALS: BP 128/76
[2018-04-07 23:15] VITALS: BP 128/76
--- NOTE | 2018-04-07 23:15 | NUR ---
ER Nurse Note: Pt seen, treated, medically cleared for discharge by ERMD. Discharge instructions and prescriptions given with repeat verbalization by pt. Instructed pt to follow up wtih primary care provider and dentist within one week. Pt a&ox4, VSS, no signs of distress. Pt was given pain meds; tolerated well. All orders completed per ERMD orders. ID band removed. Left wt all belongings via own transportation with family.
== END 2018-04-07 23:15 | disposition home or self-care (01) ==
LOC: EMR 18:58
DX: S03.2XXA Dislocation of tooth, initial encounter (principal); X58.XXXA Exposure to other specified factors, initial encounter; Y92.9 Unspecified place or not applicable; K08.409 Partial loss of teeth, unspecified cause, unspecified class; I10 Essential (primary) hypertension; I48.91 Unspecified atrial fibrillation; Z79.01 Long term (current) use of anticoagulants; Z95.0 Presence of cardiac pacemaker
CPT/HCPCS: 96372; 99283; J2270

== ENCOUNTER 2018-04-20 12:29 | Emergency (ER) | payer MEDICARE, OTHER ==
[~2018-04-20] VITALS: Ht 160 cm; Wt 65.8 kg
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
[2018-04-20] MEDS ORDERED: Tetanus/Diptheria/Pertussis Vaccine 0.5ml Syr IM ONE (13:00)
[2018-04-20] MEDS ORDERED: SILVADENE20 GM TP (13:19)
--- NOTE | 2018-04-20 13:27 | NUR ---
ED Nurse Note: PT CLEARED TO be d/c per ERMD, pt discharge and aftercare instruction provided w/ prescription, pt education done via discussion and hand out, pt wound care and dressing done, silvadene cream applied, pt's family return demonstration, pt advised to follow up with pcp or return to ed if sx worsen or new sx develop, pt and the family member verbalized understanding and agrees with plan, vss, wheelchaired out by metrology technician.
[2018-04-20 13:28] VITALS: BP 110/71
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
== END 2018-04-20 13:30 | disposition home or self-care (01) ==
LOC: EMR 12:58
DX: T24.012A Burn of unspecified degree of left thigh, initial encounter (principal); T24.011A Burn of unspecified degree of right thigh, initial encounter; T31.0 Burns involving less than 10% of body surface; T79.9XXA Unspecified early complication of trauma, initial encounter; M79.605 Pain in left leg; M79.604 Pain in right leg; Z23 Encounter for immunization; X17.XXXA Contact with hot engines, machinery and tools, initial encounter; E11.9 Type 2 diabetes mellitus without complications; Y92.89 Other specified places as the place of occurrence of the external cause; Z86.73 Personal history of transient ischemic attack (TIA), and cerebral infarction without residual deficits
CPT/HCPCS: 90471; 90715; 99283

== ENCOUNTER 2018-04-24 10:50 | Inpatient (IN) | payer MEDICARE, OTHER ==
[~2018-04-24] VITALS: Ht 160 cm; Wt 65.8 kg
[~2018-04-24 10:50] MED LIST changes: +SILVADENE20 GM TP
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
[2018-04-24 11:07] VITALS: BP 138/91
[2018-04-24] MEDS ORDERED: Morphine Sulfate 4mg/ml Inj (IV USE ONLY) IVP ONE (11:45)
--- NOTE | 2018-04-24 12:54 | NUR ---
ED Nurse Note: [facility] CALLED FOR PT TRANSFER. PER UNIT, NO RN ASSIGNED. WILL CALL BACK ONCE RN ASSIGNED TO PT.
--- NOTE | 2018-04-24 14:06 | NUR ---
ED Nurse Note: REYNALDO LEON RN ON [facility], WOULD LIKE LAB RESULTS TO BE COMPLETED BEFORE PT TRANSFER.
[2018-04-24 14:11] LABS: HEMATOCRIT 32.2 % (37.0-47.0); HEMOGLOBIN 9.8 G/DL (12.0-16.0); MEAN CORPUSCULAR VOLUME 104 FL (80-99); PLATELET COUNT 183 K/UL (150-450); RED CELL DISTRIBUTION WIDTH 21.6 % (11.6-14.8)
[2018-04-24 14:15] LABS: INR 1.3 (0.9-1.1)
[2018-04-24 14:17] LABS: ANION GAP 6 mmol/L (5-15); BLOOD UREA NITROGEN 17 mg/dL (7-18); CALCIUM 8.5 MG/DL (8.5-10.1); CARBON DIOXIDE 26 MMOL/L (21-32); CHLORIDE 106 MMOL/L (98-107); CREATININE 0.8 MG/DL (0.55-1.30); POTASSIUM 4.1 MMOL/L (3.5-5.1); SODIUM 138 MMOL/L (136-145)
[2018-04-24 14:20] LABS: ALANINE AMINOTRANSFERASE 9 U/L (12-78); ALBUMIN 2.3 G/DL (3.4-5.0); ALBUMIN/GLOBULIN RATIO 0.6 (1.0-2.7); ALKALINE PHOSPHATASE 81 U/L (46-116); ASPARTATE AMINO TRANSFERASE 16 U/L (15-37); BILIRUBIN,TOTAL 0.4 MG/DL (0.2-1.0)
--- NOTE | 2018-04-24 14:33 | NUR ---
ED Nurse Note: [facility] CALLED FOR PT TRANSFER. REPORT GIVEN TO IRA LEON. PT TAKEN UP TO [facility] VIA GURNEY WITH ALL BELONGINGS ACCOMPANIED BY EMT. VSS.
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
[2018-04-24] MEDS ORDERED: LORazepam Inj 2mg/ml 1ml IV PRN (15:33)
[2018-04-24] MEDS ORDERED: Mylanta II UD 30ml ORAL PRN (15:33)
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
[2018-04-24 16:00] VITALS: BP 109/58
--- NOTE | 2018-04-24 19:24 | NUR ---
HAND-OFF: Report given to KOJO Ho.
--- NOTE | 2018-04-24 19:30 | NUR ---
NURSE NOTES: RECEIVED PATIENT IN ROOM 408 BED 2, UPON ENTERING ROOM, PATIENT REQUESTED ROOM CHANGE, CHARGE NURSE NOTIFIED, PATIENT MOVED TO ROOM 412 BED 1.
--- NOTE | 2018-04-24 19:44 | History & Physical ---
History and Physical History & Physicial Dictated for Int Med-Dr Adrian no. [id number]. Roshan Edwards MD Apr 24, 2018 19:44
[2018-04-24 20:00] VITALS: BP 133/80
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
[2018-04-24] MEDS ORDERED: Zolpidem 5mg tab ORAL PRN (21:00)
[2018-04-24] MEDS ORDERED: Miralax 17gm pkt ORAL PRN (21:00)
[2018-04-24] MEDS: Lisinopril 20mg tab ORAL SCH (21:06)
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
--- NOTE | 2018-04-24 22:20 | NUR ---
NURSE NOTES: PATIENT WITH COMPLAINTS OF INSOMNIA; COMFORT CARE PROVIDED, MEDICATED WITH PRN MEDICATION/AMBIEN. QUIET ENVIRONMENT TO FACILITATE SLEEP.
[2018-04-25] VITALS: BP 128/67
[2018-04-25 04:00] VITALS: BP 146/81
--- NOTE | 2018-04-25 06:41 | NUR ---
NURSE NOTES: RESTED WELL, NO SIGNIFICANT CHANGE OF CONDITION NOTED THROUGHOUT THE NIGHT. SAFETY MAINTAINED. NAD.
[2018-04-25 07:50] LABS: HEMATOCRIT 36.3 % (37.0-47.0); MEAN CORPUSCULAR VOLUME 105 FL (80-99); PLATELET COUNT 185 K/UL (150-450); RED BLOOD COUNT 3.46 M/UL (4.20-5.40); RED CELL DISTRIBUTION WIDTH 22.4 % (11.6-14.8); WHITE BLOOD COUNT 13.8 K/UL (4.8-10.8)
[2018-04-25 08:00] VITALS: BP 123/68
--- NOTE | 2018-04-25 08:26 | NUR ---
NURSE NOTES: Patient is alert and oriented. Patient is resting in bed. Side rails are up X2, bed is locked, in lowest position, and call light is within reach. Will continue to monitor.
[2018-04-25 08:27] LABS: ALANINE AMINOTRANSFERASE 8 U/L (12-78); ALBUMIN 2.5 G/DL (3.4-5.0); ALBUMIN/GLOBULIN RATIO 0.6 (1.0-2.7); ALKALINE PHOSPHATASE 87 U/L (46-116); ANION GAP 8 mmol/L (5-15); ASPARTATE AMINO TRANSFERASE 19 U/L (15-37); BILIRUBIN,TOTAL 0.5 MG/DL (0.2-1.0); BLOOD UREA NITROGEN 16 mg/dL (7-18); CARBON DIOXIDE 25 MMOL/L (21-32); CHLORIDE 104 MMOL/L (98-107); CHOLESTEROL 106 MG/DL (< 200); CREATININE 0.9 MG/DL (0.55-1.30); HDL CHOLESTEROL 26 MG/DL (40-60); POTASSIUM 4.4 MMOL/L (3.5-5.1); SODIUM 137 MMOL/L (136-145); TRIGLYCERIDES 93 MG/DL (30-150)
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
[2018-04-25] MEDS: Furosemide 40mg tab ORAL SCH (09:15)
[2018-04-25] MEDS: Amiodarone 200mg tab ORAL SCH (09:15)
[2018-04-25] MEDS: Lisinopril 20mg tab ORAL SCH ×2 (09:16→20:44)
[2018-04-25 12:00] VITALS: BP 108/57
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
[2018-04-25 16:00] VITALS: BP 118/61
[2018-04-25] MEDS ORDERED: Piperacillin/Tazobactam 3.375 GM in NS 110 ML IVPB SCH (16:00)
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
--- NOTE | 2018-04-25 19:15 | NUR ---
HAND-OFF: Report given to KOJO Cadena.
--- NOTE | 2018-04-25 19:17 | NUR ---
NURSE NOTES: IV infiltrated. Unable to get IV, attempted X4. Endorsed to oncoming nurse to try.
--- NOTE | 2018-04-25 19:30 | NUR ---
NURSE NOTES: RECEIVED PATIENT LYING IN BED, AWAKE, ALERT/ORIENTED X4, VERBALLY RESPONSIVE, DENIES PAIN, RECEIVED PATIENT WITHOUT IV ACCESS. NO SIGNS AND SYMPTOMS OF ACUTE CARDIO RESPIRATORY DISTRESS/SHORTNESS OF BREATH, DENIES CHEST PAIN, NO EDEMA NOTED. DRESSINGS DRY AND INTACT TO BILATERAL MEDIAL THIGHS. NO REPORT OF GI DISCOMFORT, BATHROOM PRIVILEGES, CANE AT BEDSIDE. SIDE RAILS UP X3/BED IN LOWEST POSITION FOR SAFETY. CALL LIGHT WITHIN REACH. NAD.
[2018-04-25 20:00] VITALS: BP 121/69
[2018-04-25] MEDS: Cephalexin 500mg cap ORAL SCH (20:44)
[2018-04-26] VITALS: BP 103/55
[2018-04-26 04:00] VITALS: BP 101/67
[2018-04-26 08:00] VITALS: BP 147/76
--- NOTE | 2018-04-26 08:11 | NUR ---
NURSE NOTES: Pt awake wound care rendered by exiting nurse. Pt is able to verbalize known needs. Stool specimen pending. Pt has removed specimen container from room several times. Will educate pt on plan and purpose of stool collection
[2018-04-26] MEDS: Amiodarone 200mg tab ORAL SCH (09:00)
[2018-04-26] MEDS: Furosemide 40mg tab ORAL SCH (09:00)
[2018-04-26] MEDS: Lisinopril 20mg tab ORAL SCH (09:00)
[2018-04-26] MEDS: Cephalexin 500mg cap ORAL SCH ×4 (09:24→21:22)
--- NOTE | 2018-04-26 09:26 | NUR ---
NURSE NOTES: Pt blood pressure currently 90/51 Lasix amiodarone and Zestril held. Pt made awre of reason medications were held. Pt alert denies dizziness. Able to answer all questions appropriately
[2018-04-26 10:29] LABS: INR 1.3 (0.9-1.1)
[2018-04-26 10:33] LABS: HEMATOCRIT 34.6 % (37.0-47.0); HEMOGLOBIN 10.3 G/DL (12.0-16.0); MEAN CORPUSCULAR VOLUME 104 FL (80-99); PLATELET COUNT 206 K/UL (150-450); RED BLOOD COUNT 3.33 M/UL (4.20-5.40); RED CELL DISTRIBUTION WIDTH 22.1 % (11.6-14.8); WHITE BLOOD COUNT 12.8 K/UL (4.8-10.8)
[2018-04-26 10:38] LABS: ANION GAP 5 mmol/L (5-15); BLOOD UREA NITROGEN 13 mg/dL (7-18); CALCIUM 8.6 MG/DL (8.5-10.1); CARBON DIOXIDE 29 MMOL/L (21-32); CHLORIDE 104 MMOL/L (98-107); CREATININE 1.1 MG/DL (0.55-1.30); POTASSIUM 3.5 MMOL/L (3.5-5.1); SODIUM 138 MMOL/L (136-145)
[2018-04-26 10:43] LABS: LACTATE DEHYDROGENASE 469 U/L (81-234)
[2018-04-26 11:06] LABS: % IRON SATURATION 21 % (15-50); IRON 36 ug/dL (50-175); TOTAL IRON BINDING CAPACITY 168 ug/dL (250-450)
[2018-04-26 12:00] VITALS: BP 94/61
--- NOTE | 2018-04-26 12:01 | NUR ---
NURSE NOTES: Pt b/p is low 90/51 position changed. previous b/p 74/51. Pt denies feeling dizzy, yet gait is not stable. awaiting return call
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
--- NOTE | 2018-04-26 12:11 | NUR ---
NURSE NOTES: Dr bautista call gave orders to hold Zestril, Lasix. Okay to give next dose of amoridone. No further orders. Pt assisted to restroom, informed of importance of not getting up from commode without assistance, Clay Puddler returned to room pt noted walking back to bed stopping to gain balance and holding on the door. Pt informed of safety. " I feel like my body is moving side side" Charge nurse made aware.
[2018-04-26 16:00] VITALS: BP 98/60
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
--- NOTE | 2018-04-26 16:47 | Cardiac Electrophysiology PN ---
Subjective Subjective [id number] Objective Last 24 Hour Vital Signs Date Time Temp Pulse Resp B/P (MAP) Pulse Ox O2 Delivery O2 Flow Rate FiO2 04/26/18 12:00 98.1 76 16 94/61 (72) 04/26/18 09:00 90/51 04/26/18 09:00 Room Air 04/26/18 08:00 97.1 100 20 147/76 (99) 96 04/26/18 04:00 98.1 72 17 101/67 (78) 95 04/26/18 00:00 98.9 75 17 103/55 (71) 96 04/25/18 21:00 Room Air 04/25/18 20:44 122/69 04/25/18 20:00 98.3 69 18 121/69 (86) 95 Intake and Output 04/25/18 04/26/18 19:00 07:00 Intake Total 480 ml 540 ml Balance 480 ml 540 ml Intake Oral 480 ml 540 ml # Voids 4 4 Laboratory Tests Test 04/26/18 09:55 White Blood Count 12.8 K/UL (4.8-10.8) H Red Blood Count 3.33 M/UL (4.20-5.40) L Hemoglobin 10.3 G/DL (12.0-16.0) L Hematocrit 34.6 % (37.0-47.0) L Mean Corpuscular Volume 104 FL (80-99) H Mean Corpuscular Hemoglobin 30.9 PG (27.0-31.0) Mean Corpuscular Hemoglobin Concent 29.7 G/DL (32.0-36.0) L Red Cell Distribution Width 22.1 % (11.6-14.8) H Platelet Count 206 K/UL (150-450) Mean Platelet Volume 9.6 FL (6.5-10.1) Neutrophils (%) (Auto) % (45.0-75.0) Lymphocytes (%) (Auto) % (20.0-45.0) Monocytes (%) (Auto) % (1.0-10.0) Eosinophils (%) (Auto) % (0.0-3.0) Basophils (%) (Auto) % (0.0-2.0) Differential Total Cells Counted 100 Neutrophils % (Manual) 89 % (45-75) H Lymphocytes % (Manual) 9 % (20-45) L Monocytes % (Manual) 1 % (1-10) Eosinophils % (Manual) 1 % (0-3) Basophils % (Manual) 0 % (0-2) Band Neutrophils 0 % (0-8) Platelet Estimate Adequate Platelet Morphology Normal Hypochromasia 1+ Anisocytosis 3+ Macrocytosis 1+ Erythrocyte Sedimentation Rate 63 MM/HR (0-30) H Reticulocyte Count 3.1 % (0.0-2.0) H Prothrombin Time 13.3 SEC (9.30-11.50) H Prothromb Time International Ratio 1.3 (0.9-1.1) H Activated Partial Thromboplast Time 36 SEC (23-33) H Sodium Level 138 MMOL/L (136-145) Potassium Level 3.5 MMOL/L (3.5-5.1) Chloride Level 104 MMOL/L (98-107) Carbon Dioxide Level 29 MMOL/L (21-32) Anion Gap 5 mmol/L (5-15) Blood Urea Nitrogen 13 mg/dL (7-18) Creatinine 1.1 MG/DL (0.55-1.30) Estimat Glomerular Filtration Rate mL/min (>60) Glucose Level 114 MG/DL (74-106) H Calcium Level 8.6 MG/DL (8.5-10.1) Iron Level 36 ug/dL (50-175) L Total Iron Binding Capacity 168 ug/dL (250-450) L Percent Iron Saturation 21 % (15-50) Unsaturated Iron Binding 132 ug/dL (112-346) Lactate Dehydrogenase 469 U/L (81-234) H Carcinoembryonic Antigen Pending Vitamin B12 Level 1419 PG/ML (193-986) H Folate 4.9 NG/ML (8.6-58.9) L River Freitas MD Apr 26, 2018 16:47
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
[2018-04-26] MEDS: Docusate 100mg cap ORAL SCH (18:31)
[2018-04-26] MEDS: Dabigatran 150mg cap ORAL SCH (18:32)
--- NOTE | 2018-04-26 18:51 | NUR ---
NURSE NOTES: Dr Hodges called to be made aware that pt blood pressure remained below 100 systolic all shift currently 88/58
--- NOTE | 2018-04-26 18:56 | NUR ---
NURSE NOTES: Wound Care refused , pt has not had bm Dr Adrian ordered colace made aware of pt concerns with constipation. prune juice given and accepted
[2018-04-26 20:00] VITALS: BP 90/58
--- NOTE | 2018-04-26 21:10 | NUR ---
NURSE NOTES: Pt received awake, alert asking to be helped into the chair at bedside, able to make needs known, call light within reach, will continue to monitor.
--- NOTE | 2018-04-26 21:18 | NUR ---
NURSE NOTES: Dr Marino gave orders to place paramters to hold blood pressure medications for blood pressure less than 100
[2018-04-27] VITALS: BP 105/56
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
[2018-04-27 04:00] VITALS: BP 92/58
[2018-04-27] MEDS: Dabigatran 150mg cap ORAL SCH ×2 (05:31→18:06)
[2018-04-27 06:44] LABS: HEMATOCRIT 37.1 % (37.0-47.0); HEMOGLOBIN 11.4 G/DL (12.0-16.0); MEAN CORPUSCULAR VOLUME 104 FL (80-99); PLATELET COUNT 220 K/UL (150-450); RED BLOOD COUNT 3.58 M/UL (4.20-5.40); RED CELL DISTRIBUTION WIDTH 22.2 % (11.6-14.8)
--- NOTE | 2018-04-27 07:30 | NUR ---
HAND-OFF: Report given to IRA Montgomery.
[2018-04-27 07:37] LABS: ALANINE AMINOTRANSFERASE 8 U/L (12-78); ALBUMIN 2.3 G/DL (3.4-5.0); ALBUMIN/GLOBULIN RATIO 0.6 (1.0-2.7); ALKALINE PHOSPHATASE 91 U/L (46-116); ANION GAP 8 mmol/L (5-15); ASPARTATE AMINO TRANSFERASE 18 U/L (15-37); BILIRUBIN,TOTAL 0.5 MG/DL (0.2-1.0); BLOOD UREA NITROGEN 19 mg/dL (7-18); CALCIUM 8.6 MG/DL (8.5-10.1); CARBON DIOXIDE 26 MMOL/L (21-32); CHLORIDE 101 MMOL/L (98-107); CREATININE 1.2 MG/DL (0.55-1.30); PHOSPHORUS 3.4 MG/DL (2.5-4.9); POTASSIUM 4.2 MMOL/L (3.5-5.1); SODIUM 135 MMOL/L (136-145)
[2018-04-27 08:00] VITALS: BP 91/57
--- NOTE | 2018-04-27 08:04 | NUR ---
NURSE NOTES: Late entry for 04/26/18 hand off given to Janina ROTH
--- NOTE | 2018-04-27 08:09 | NUR ---
NURSE NOTES: Pt received sleeping. Current plan of care will be followed. call light is well in reach. Will be reminded about safety measures for bathroom needs
[2018-04-27] MEDS: Lisinopril 20mg tab ORAL SCH ×2 (09:00→20:15)
[2018-04-27] MEDS: Docusate 100mg cap ORAL SCH ×2 (09:00→18:06)
[2018-04-27] MEDS: Amiodarone 200mg tab ORAL SCH (09:00)
[2018-04-27] MEDS: Thiamine 100mg tab ORAL SCH (09:37)
[2018-04-27] MEDS: Hydroxyurea 500mg cap ORAL SCH (09:37)
[2018-04-27] MEDS: Cephalexin 500mg cap ORAL SCH ×4 (09:38→20:32)
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
[2018-04-27 12:00] VITALS: BP 94/54
--- NOTE | 2018-04-27 14:30 | NUR ---
NURSE NOTES: Family member is at bedside .Pt informed family member that blood pressure medications were given and that is why she feels dizzy. " Pt made aware due to baseline blood pressure being below 100 no blood pressure medications were given , in am or yesterday. " Pt shrugged her shoulders ' That is right you tell me everything that you give me , but I was not sure if I got it yesterday. typewriter assembler informed pt that baseline was low and Dr Adrian as well as Dr Freitas was informed of blood pressure and parameters added to medication regimin. In angolan, pt stated " Now that you are telling I remember , that I seen both Drs yesterday. Current plan of care will be followed. Call light is in reach
--- NOTE | 2018-04-27 15:00 | NUR ---
NURSE NOTES: Pt phoned family member, family member stated that pt fell yesterday. Casing Cleaner informed family member that flex o writer operator tended to pt needs and was escorted to restroom and needs assistance to transfer from bed and ambulate to bathroom. " I do not remember, I did not say it was with you, you did help me , you were not here, Pt qued on time of day, " I am not sure but you were not here and I just got up. " Pt requires assistance, and due to weakness and blood pressure is snot able to stand unassisted. " Well it may not have been here pt stated. Charge nurse made aware. Family member states that pt is becoming forgetful and her timeline of event are not clear. Pt will be monitored closely for toileting needs to ensure safety.
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
[2018-04-27 16:00] VITALS: BP 96/62
--- NOTE | 2018-04-27 16:04 | NUR ---
PT Note PT yolanda completed, treatment initiated. Patient was able to ambulate with the FWW x 80 ft, unsteady. She needs PT services to increase her muscle strength to improve her safety in mobility and gait. Addendum: 04/27/18 at 1605 by EM BEY PT Amended: Links added.
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
--- NOTE | 2018-04-27 20:10 | NUR ---
NURSE NOTES: PATIENT IN BED, AWAKE, VERBALLY RESPONSIVE. MAKES NEEDS KNOWN. IV IN PLACE. NO COMPLAINTS OF PAIN AT THIS TIME. NO S/S DISTRESS NOTED. BED IN LOWEST POSITION, CALL LIGHT WITHIN REACH. REEDUCATED TO USE CALL LIGHT FOR ASSISTANCE, PATIENT VERBALIZED UNDERSTANDING. WILL CONTINUE TO MONITOR.
[2018-04-27 20:14] VITALS: BP 93/53
--- NOTE | 2018-04-27 20:16 | NUR ---
NURSE NOTES: Current plan of care followed. Call light is in reach. Pt is able to verbalize known needs ate minimally for lunch. Requested a snack accepted. Family at bedside through out shift. Requested assistance with repositioning, pt is able to stand yet refused. Pt ability varies on which family member is at bedside. Demonstrates greater independence and mental clarity, when alone. Pt repeats the same question in front of family members, speaks with hand on forehead, speech is limited. . when family is present. safety measure in place bed in low position, socks on properly
--- NOTE | 2018-04-27 20:22 | NUR ---
HAND-OFF: Report given to .Etelvina ROTH
--- NOTE | 2018-04-27 21:50 | NUR ---
NURSE NOTES: CHANGED PATIENT WOUND DRESSINGS ON BILATERAL THIGHS ORDERED, PATIENT TOLERATED.
[2018-04-28 00:15] VITALS: BP 98/49
[2018-04-28 04:06] VITALS: BP 121/69
[2018-04-28] MEDS: Dabigatran 150mg cap ORAL SCH ×4 (05:13→19:06)
--- NOTE | 2018-04-28 07:30 | NUR ---
HAND-OFF: Report given to RASHI REMY RN.
--- NOTE | 2018-04-28 07:50 | NUR ---
NURSE NOTES: Per report of outgoing nurse pt seen retuning from bathroom. Unassisted. Difficult to decipher true ability baseline. Pt has been plus 2 for transfer , plus 2 for pulling up body in bed, per pt she can stand, but is not strong enough to maneuver higher up in bed. Pt noted easily repositioning. Bed exchanged for bed with alarm. Pt informed of purpose of alarm. Grand daughter stated , that at home pt is helped with all activities of living. During exchange of bed, pt stated she needed help , to sit up and transfer placing hand on head . Safety measures will be implemented. Call light is in reach,. Current palnof care will be followed
[2018-04-28 08:00] VITALS: BP 129/72
--- NOTE | 2018-04-28 08:06 | NUR ---
NURSE NOTES: Follow up made with EVS supervisor rubber covering for pt phone
--- NOTE | 2018-04-28 08:52 | NUR ---
NURSE NOTES: Stool not collected
[2018-04-28] MEDS: Amiodarone 200mg tab ORAL SCH (09:00)
[2018-04-28] MEDS: Lisinopril 20mg tab ORAL SCH ×2 (09:00→21:01)
[2018-04-28] MEDS: Cephalexin 500mg cap ORAL SCH ×4 (10:40→21:01)
[2018-04-28] MEDS: Docusate 100mg cap ORAL SCH ×2 (10:41→18:18)
[2018-04-28] MEDS: Hydroxyurea 500mg cap ORAL SCH (10:47)
[2018-04-28] MEDS: Thiamine 100mg tab ORAL SCH (10:53)
[2018-04-28 12:00] VITALS: BP 111/70
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
[2018-04-28 16:00] VITALS: BP 118/74
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
--- NOTE | 2018-04-28 19:06 | NUR ---
NURSE NOTES: Pradaxca given dose verified with charge nurse given now
--- NOTE | 2018-04-28 19:55 | NUR ---
NURSE NOTES: Received patient in bed, no acute distress noted, VSS, alert oriented x3/4. Call light is within reach, bed is in lowest position, locked and alarm is on. Will continue to monitor for safety and comfort.
[2018-04-28 20:00] VITALS: BP 136/86
--- NOTE | 2018-04-28 20:16 | NUR ---
NURSE NOTES: Pt provided with assistance for bathroom needs, lacks true understanding of safety measures. Bed alarm on and functioning.Per family request Dr Adrian phoned due to family concern that pt has dementia and demonstrating increase confusion. Gave order for urine collection. Endorse to oncoming nurse family concerns. Stool collected. Pt had a small bowl movement this shift. specimen sent to lab. Current paln of care will be followed
--- NOTE | 2018-04-28 20:19 | NUR ---
HAND-OFF: Report given to .Ashlee ROTH
--- NOTE | 2018-04-28 20:20 | NUR ---
NURSE NOTES: Per statement of Dr Adrian pt requires discharge planning for [facility] home
--- NOTE | 2018-04-28 20:22 | NUR ---
NURSE NOTES: Antibiotic given per order, no dermatological side effects noted or possible side effect of nausea or vomiting
[2018-04-29] VITALS: BP 127/87
[2018-04-29] MEDS: Morphine Sulfate 2mg/ml Inj(IV/IM USE ONLY) IVP PRN ×2 (00:16→10:15)
[2018-04-29 04:00] VITALS: BP 127/87
--- NOTE | 2018-04-29 06:56 | NUR ---
HAND-OFF: Report given to Irena ROTH.
[2018-04-29 07:18] LABS: HEMATOCRIT 36.8 % (37.0-47.0); MEAN CORPUSCULAR VOLUME 103 FL (80-99); PLATELET COUNT 222 K/UL (150-450); RED BLOOD COUNT 3.58 M/UL (4.20-5.40); RED CELL DISTRIBUTION WIDTH 21.4 % (11.6-14.8); WHITE BLOOD COUNT 12.3 K/UL (4.8-10.8)
[2018-04-29 07:27] LABS: ALANINE AMINOTRANSFERASE 10 U/L (12-78); ALBUMIN 2.4 G/DL (3.4-5.0); ALBUMIN/GLOBULIN RATIO 0.6 (1.0-2.7); ALKALINE PHOSPHATASE 82 U/L (46-116); ANION GAP 3 mmol/L (5-15); ASPARTATE AMINO TRANSFERASE 13 U/L (15-37); BILIRUBIN,TOTAL 0.5 MG/DL (0.2-1.0); BLOOD UREA NITROGEN 14 mg/dL (7-18); CALCIUM 8.8 MG/DL (8.5-10.1); CARBON DIOXIDE 31 MMOL/L (21-32); CHLORIDE 103 MMOL/L (98-107); POTASSIUM 4.9 MMOL/L (3.5-5.1); SODIUM 137 MMOL/L (136-145)
[2018-04-29 08:00] VITALS: BP 105/62
--- NOTE | 2018-04-29 08:00 | NUR ---
NURSE NOTES: RECEIVED PATIENT IN BED, RESTING AND ALERT x3. PATIENT DENIES PAIN. NO SIGNS OF RESPIRATORY DISTRESS. IV INTACT. BED IN LOWEST POSITION, CALL LIGHT WITHIN REACH. WILL CONTINUE TO MONITOR.
[2018-04-29] MEDS: Docusate 100mg cap ORAL SCH (08:35)
[2018-04-29] MEDS: Hydroxyurea 500mg cap ORAL SCH (08:35)
[2018-04-29] MEDS: Thiamine 100mg tab ORAL SCH (08:36)
[2018-04-29] MEDS: Cephalexin 500mg cap ORAL SCH ×2 (08:36→12:41)
--- NOTE | 2018-04-29 08:49 | NUR ---
*-* DISCHARGE PLANNING *-* PATIENT HAS BEEN REFERED TO: [facility] P:[phone] F:[phone] & [facility] P:[phone] F:[phone]
[2018-04-29] MEDS: Amiodarone 200mg tab ORAL SCH (09:00)
[2018-04-29] MEDS: Lisinopril 20mg tab ORAL SCH (09:00)
--- NOTE | 2018-04-29 11:53 | NUR ---
*-* DISCHARGE PLANNED *-* PATIENT IS DISCHARGE TO: [facility]-B SKILLED T:[phone] FOR NURSE TO NURSE REPORT [facility] HAS BEEN ARRANGED FOR [id number] S/W PJ [id number] Addendum: 04/29/18 at 1206 by NAT DIAL CM placed on will per nurse pt still needs xray
[2018-04-29 12:00] VITALS: BP 97/56
[2018-04-29] MEDS ORDERED: Milk of Magnesia 30ml Ud ORAL SCH (12:15)
[2018-04-29] MEDS ORDERED: Milk of Magnesia 30ml Ud ORAL PRN (12:15)
[2018-04-29] MEDS ORDERED: Miralax 17gm pkt ORAL PRN (12:15)
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
[2018-04-29] MEDS ORDERED: SILVER SULFADIA50 GM TOPIC (13:06)
[2018-04-29] MEDS ORDERED: DOXYCYCLINE HY100 M2 ORAL (13:06)
[2018-04-29] MEDS ORDERED: KEFLEX500 M1 ORAL (13:06)
--- NOTE | 2018-04-29 14:14 | NUR ---
NURSE NOTES: LEFT MESSAGE TO DAUGHTER IN LAW, FERMIN MANUEL, FROM [employer], REGARDING DISCHARGE TO [facility].
[2018-04-29] MEDS ORDERED: NS 275ml ONE (14:53)
[2018-04-29] MEDS ORDERED: Tubing IV Secondary IV ONE (14:53)
--- NOTE | 2018-04-29 14:55 | NUR ---
CHARGE NURSE NOTES: PER DR. MASCORRO, CANCEL XRAY ON BACK. FOR DISCHARGE. NOTED. CARRIED OUT.
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
[2018-04-29 16:00] VITALS: BP 108/65
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
[2018-04-29] MEDS ORDERED: LEXAPRO10 MG ORAL (16:23)
[2018-04-29 16:29] LABS: APPEARANCE,URINE CLEAR; BILIRUBIN, URINE NEGATIVE (NEGATIVE); GLUCOSE, URINE (UA) NEGATIVE (NEGATIVE); KETONES,URINE NEGATIVE (NEGATIVE); LEUKOCYTE ESTERASE ,URINE 1+ (NEGATIVE); NITRITE,URINE NEGATIVE (NEGATIVE); PH,URINE 5 (4.5-8.0); PROTEIN,URINE 2+ (NEGATIVE); UROBILINOGEN,URINE NORMAL MG/DL (0.0-1.0)
[2018-04-29 16:32] LABS: COLOR,URINE YELLOW
--- NOTE | 2018-04-29 16:40 | NUR ---
NURSE NOTES: PATIENT DISCHARGED TO [facility] WITH [facility]. IV AND ID BAND REMOVED. PACKET GIVEN TO EMT. ENDORSED 3 MORE DAYS OF ABX TO RN AT [facility]. NEXT OF [facility] AWARE OF DC. PATIENT DISCHARGED IN STABLE CONDITION.
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
--- NOTE | 2018-05-01 09:28 | NUR ---
[employer]AL Co-Signature: Reviewed patient's chart. Reviewed and approved [employer]AL notes Addendum: 05/01/18 at 0929 by WESTLEY YIN PT,MG Amended: Links added.
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
== END 2018-04-29 17:00 | DRG 935 ==
LOC: EMR 12:20 → 4E 12:32 → EDBEDREQ 12:49 → 4E 20:14
DX: T24.212A Burn of second degree of left thigh, initial encounter (principal); L03.116 Cellulitis of left lower limb; L03.115 Cellulitis of right lower limb; F33.1 Major depressive disorder, recurrent, moderate; T24.211A Burn of second degree of right thigh, initial encounter; W19.XXXA Unspecified fall, initial encounter; X16.XXXA Contact with hot heating appliances, radiators and pipes, initial encounter; Y92.009 Unspecified place in unspecified non-institutional (private) residence as the place of occurrence of the external cause; J44.9 Chronic obstructive pulmonary disease, unspecified; I48.0 Paroxysmal atrial fibrillation; I11.0 Hypertensive heart disease with heart failure; I50.9 Heart failure, unspecified; I25.10 Atherosclerotic heart disease of native coronary artery without angina pectoris; Z79.01 Long term (current) use of anticoagulants; H81.10 Benign paroxysmal vertigo, unspecified ear; G47.33 Obstructive sleep apnea (adult) (pediatric); D45 Polycythemia vera; Z95.0 Presence of cardiac pacemaker; D63.8 Anemia in other chronic diseases classified elsewhere
CPT/HCPCS: 36415; 80048; 80053; 80061; 81003; 82270; 82378; 82607; 82746; 83540; 83550; 83615; 83735; 84100; 84443; 85007; 85025; 85044; 85060; 85610; 85651; 85730; 93970; 96374; 96375; 99285; J2405

== ENCOUNTER 2018-07-29 02:21 | Inpatient (IN) | payer MEDICARE, OTHER ==
[~2018-07-29] VITALS: Ht 165.1 cm; Wt 60.0 kg
[~2018-07-29 02:21] MED LIST changes: +DOXYCYCLINE HY100 M2 ORAL; +KEFLEX500 M1 ORAL; +LEXAPRO10 MG ORAL; +SILVER SULFADIA50 GM TOPIC
[2018-07-29 02:45] VITALS: BP 136/72
--- NOTE | 2018-07-29 02:45 | NUR ---
ED Nurse Note: Patient was brought by her nice from home due to generalized weakness, fever. Per patient she fell yesterday 2 times and today 1 times. States that she hit both shoulders and her head. AAO x4, T 102.1, other VSS at this time, skin is dry, warm to touch.
[2018-07-29 03:40] LABS: EOSINOPHILS % (AUTO) 0.2 % (0.0-3.0); HEMATOCRIT 29.4 % (37.0-47.0); HEMOGLOBIN 9.3 G/DL (12.0-16.0); LYMPHOCYTES % (AUTO) 13.1 % (20.0-45.0); MEAN CORPUSCULAR VOLUME 91 FL (80-99); MONOCYTES % (AUTO) 2.2 % (1.0-10.0); NEUTROPHILS % (AUTO) 83.5 % (45.0-75.0); PLATELET COUNT 156 K/UL (150-450); RED BLOOD COUNT 3.25 M/UL (4.20-5.40); RED CELL DISTRIBUTION WIDTH 21.6 % (11.6-14.8); WHITE BLOOD COUNT 5.9 K/UL (4.8-10.8)
[2018-07-29 03:53] LABS: ANION GAP 9 mmol/L (5-15); BLOOD UREA NITROGEN 28 mg/dL (7-18); CALCIUM 8.7 MG/DL (8.5-10.1); CARBON DIOXIDE 25 MMOL/L (21-32); CHLORIDE 108 MMOL/L (98-107); CREATININE 1.3 MG/DL (0.55-1.30); POTASSIUM 5.2 MMOL/L (3.5-5.1); SODIUM 142 MMOL/L (136-145)
[2018-07-29 04:02] LABS: BILIRUBIN, URINE NEGATIVE (NEGATIVE); COLOR,URINE PALE YELLOW; GLUCOSE, URINE (UA) NEGATIVE (NEGATIVE); KETONES,URINE NEGATIVE (NEGATIVE); LEUKOCYTE ESTERASE ,URINE 2+ (NEGATIVE); NITRITE,URINE NEGATIVE (NEGATIVE); PH,URINE 5 (4.5-8.0); PROTEIN,URINE 2+ (NEGATIVE); UROBILINOGEN,URINE NORMAL MG/DL (0.0-1.0)
[2018-07-29 04:06] LABS: ALANINE AMINOTRANSFERASE 15 U/L (12-78); ALBUMIN 3.1 G/DL (3.4-5.0); ALBUMIN/GLOBULIN RATIO 0.9 (1.0-2.7); ALKALINE PHOSPHATASE 111 U/L (46-116); ASPARTATE AMINO TRANSFERASE 25 U/L (15-37); BILIRUBIN,TOTAL 0.7 MG/DL (0.2-1.0); CKMB < 0.5 NG/ML (0.0-3.6); CREATINE KINASE 29 U/L (26-308)
[2018-07-29 04:13] LABS: APPEARANCE,URINE SLIGHTLY CLOUDY
[2018-07-29] MEDS ORDERED: cefTRIAXone 1 GM in D5W 55 ML IVPB ONE (04:15)
[2018-07-29 05:11] VITALS: BP 136/72
--- NOTE | 2018-07-29 05:14 | NUR ---
ED Nurse Note: Patient was admited to [facility] due to generalized weakness, multiple falls. AAO x4, VSS at this time, skin is dry, intact, warm to touch. Patient was transfered to [facility] via gurney with all belongings.
--- NOTE | 2018-07-29 05:22 | Emergency Room Report ---
History of Present Illness General Chief Complaint: Generalized Weakness Source: Patient, Medical Record Present Illness HPI Patient presents with complaints of general weakness reports having difficulty standing and walking Patient is somewhat of a poor historian does limit the history of present illness Denies any acute fall or trauma denies any cough denies any shortness of breath patient feels that She feels decrease in her energy level Denies any diarrhea denies any recent travel Allergies: Coded Allergies: No Known Allergies (Unverified , 04/24/18) Patient History Past Medical History: see triage record Pertinent Family History: none Reviewed Nursing Documentation: PMH: Agreed; PSxH: Agreed Nursing Documentation-PMH Hx Cardiac Problems: Yes - ?CHF Hx Hypertension: Yes Hx Pacemaker: Yes Hx Asthma: No Hx COPD: No Hx Diabetes: No Hx Cancer: No Hx Gastrointestinal Problems: Yes Hx Dialysis: No Hx Neurological Problems: Yes Hx Cerebrovascular Accident: No Hx Transient Ischemic Attacks: Yes Hx Seizures: No Hx Headaches: Yes Hx Numbness: Yes Hx Weakness: Yes - Generalized weakness Review of Systems All Other Systems: negative except mentioned in HPI Physical Exam Vital Signs Date Time Temp Pulse Resp B/P (MAP) Pulse Ox O2 Delivery O2 Flow Rate FiO2 07/29/18 02:28 100.2 64 18 136/72 (93) 95 Room Air 07/29/18 05:11 2.0 Sp02 EP Interpretation: reviewed, normal General Appearance: other - Appears weak Head: normocephalic, atraumatic Eyes: bilateral eye PERRL, bilateral eye EOMI ENT: hearing grossly normal, normal pharynx, TMs + canals normal, uvula midline Neck: full range of motion, supple, no meningismus, no bony tend Respiratory: no rhonchi, no respiratory distress, no retraction, no accessory muscle use, crackles - Fine crackles bilaterally Cardiovascular #1: normal peripheral pulses, regular rate, rhythm, no edema, no gallop, no JVD, no murmur Gastrointestinal: normal bowel sounds, non tender, soft, no mass, no organomegaly, non-distended, no guarding, no hernia, no pulsatile mass, no rebound Genitourinary: no CVA tenderness Musculoskeletal: other - No obvious focal deficit however patient is weak Neurologic: responsive, sensory intact Psychiatric: mood/affect normal Skin: normal color, no rash, warm/dry, palpation normal Lymphatic: normal inspection, no adenopathy Medical Decision Making Diagnostic Impression: Primary Impression: Episode of generalized weakness Additional Impression: Generalized weakness ER Course Patient is a fairly complex patient with multiple differential to consideration including but not limited to cardiac cardiopulmonary and vascular emergencies Other differential such as occult fractures electrolyte pathology considered Patient remains hemodynamically stable x-ray imaging is concerning for congestion Patient's urine sample also shows UTI x-ray imaging shows evidence of congestion versus infiltrate Patient is not candidate for 30 cc/kg fluid as she does have history of CHF as well antibiotics initiated and patient requires further inpatient care with evaluation of the anemia as well Labs Test 07/29/18 03:33 07/29/18 04:04 07/29/18 09:00 White Blood Count 5.9 K/UL (4.8-10.8) Red Blood Count 3.25 M/UL (4.20-5.40) Hemoglobin 9.3 G/DL (12.0-16.0) Hematocrit 29.4 % (37.0-47.0) Mean Corpuscular Volume 91 FL (80-99) Mean Corpuscular Hemoglobin 28.8 PG (27.0-31.0) Mean Corpuscular Hemoglobin Concent 31.8 G/DL (32.0-36.0) Red Cell Distribution Width 21.6 % (11.6-14.8) Platelet Count 156 K/UL (150-450) Mean Platelet Volume 9.5 FL (6.5-10.1) Neutrophils (%) (Auto) 83.5 % (45.0-75.0) Lymphocytes (%) (Auto) 13.1 % (20.0-45.0) Monocytes (%) (Auto) 2.2 % (1.0-10.0) Eosinophils (%) (Auto) 0.2 % (0.0-3.0) Basophils (%) (Auto) 1.0 % (0.0-2.0) Sodium Level 142 MMOL/L (136-145) 144 MMOL/L (136-145) Potassium Level 5.2 MMOL/L (3.5-5.1) 4.1 MMOL/L (3.5-5.1) Chloride Level 108 MMOL/L (98-107) 110 MMOL/L (98-107) Carbon Dioxide Level 25 MMOL/L (21-32) 23 MMOL/L (21-32) Anion Gap 9 mmol/L (5-15) Blood Urea Nitrogen 28 mg/dL (7-18) 25 mg/dL (7-18) Creatinine 1.3 MG/DL (0.55-1.30) 1.1 MG/DL (0.55-1.30) Estimat Glomerular Filtration Rate mL/min (>60) mL/min (>60) Glucose Level 122 MG/DL (74-106) 126 MG/DL (74-106) Calcium Level 8.7 MG/DL (8.5-10.1) 8.3 MG/DL (8.5-10.1) Total Bilirubin 0.7 MG/DL (0.2-1.0) Aspartate Amino Transf (AST/SGOT) 25 U/L (15-37) Alanine Aminotransferase (ALT/SGPT) 15 U/L (12-78) Alkaline Phosphatase 111 U/L (46-116) Total Creatine Kinase 29 U/L (26-308) Creatine Kinase MB < 0.5 NG/ML (0.0-3.6) Creatine Kinase MB Relative Index 1.7 Troponin I 0.006 ng/mL (0.000-0.056) Total Protein 6.5 G/DL (6.4-8.2) Albumin 3.1 G/DL (3.4-5.0) Globulin 3.4 g/dL Albumin/Globulin Ratio 0.9 (1.0-2.7) Lipase 68 U/L (73-393) Urine Color Pale yellow Urine Appearance Slightly cloudy Urine pH 5 (4.5-8.0) Urine Specific [place] 1.015 (1.005-1.035) Urine Protein 2+ (NEGATIVE) Urine Glucose (UA) Negative (NEGATIVE) Urine Ketones Negative (NEGATIVE) Urine Blood 2+ (NEGATIVE) Urine Nitrite Negative (NEGATIVE) Urine Bilirubin Negative (NEGATIVE) Urine Urobilinogen Normal MG/DL (0.0-1.0) Urine Leukocyte Esterase 2+ (NEGATIVE) Urine RBC 2-4 /HPF (0 - 2) Urine WBC 30-40 /HPF (0 - 2) Urine Squamous Epithelial Cells Few /LPF (NONE/OCC) Urine Bacteria Moderate /HPF (NONE) Rhythm Strip Diag. Results EP Interpretation: yes Rate: 78 Rhythm: NSR, no PVC's, no ectopy Chest X-Ray Diagnostic Results Chest X-Ray Diagnostic Results : Chest X-Ray Ordered: Yes # of Views/Limited/Complete: 1 View Indication: Chest Pain EP Interpretation: Yes Interpretation: no effusion, no pneumothorax, other - Pulmonary congestion, cannot rule out infiltrate Impression: Other - Pulmonary congestion, cannot rule out infiltrate Electronically Signed by: Lizzie Liu DO Last Vital Signs Date Time Temp Pulse Resp B/P (MAP) Pulse Ox O2 Delivery O2 Flow Rate FiO2 07/29/18 05:11 99.9 62 28 136/72 100 Nasal Cannula 2.0 Status: improved Disposition: ADMITTED INPATIENT Condition: Serious Referrals: Antonio Adrian MD (PCP) Lizzie Liu DO Jul 29, 2018 05:22
--- NOTE | 2018-07-29 05:30 | NUR ---
NURSE NOTES: Received patient from ED, via gurney, report received from Amada ROTH, patient is awake, alert, oriented, speaks Korean and a little Chilean, temp 101.3 oral, 92 % o2 sat on room air, patient is bed bound due to weakness, incontinent x2. Oriented to the room, call light is within reach, bed is in low position, locked and alarm is on. Belongings list been verified and items are accounted for. Will continue to monitor for safety and comfort.
--- NOTE | 2018-07-29 05:53 | NUR ---
NURSE NOTES: left message for Dr. Adrian for admit orders.
[2018-07-29] MEDS ORDERED: LORazepam Inj 2mg/ml 1ml IV PRN ×2 (07:00→11:00)
[2018-07-29] MEDS ORDERED: Morphine Sulfate 2mg/ml Inj(IV/IM USE ONLY) IVP PRN (07:00)
[2018-07-29] MEDS ORDERED: Dextrose 50% 25ml Syringe IV PRN (07:15)
--- NOTE | 2018-07-29 07:30 | NUR ---
NURSE NOTES: Received pt from IRA JAIN. pt is alert and orient x4. Pt is in RA, No SOB or acute respiratory distress noted. pt is eating breakfast. Dr herr is aware K 5.2. All needs attended, bed is locked and is in the lowest position, call light within east reach. will continue to monitor.
--- NOTE | 2018-07-29 07:36 | NUR ---
NURSE NOTES: Patient pulled out the IV, unable to re start, endorsed it to the am nurse.
--- NOTE | 2018-07-29 07:37 | NUR ---
HAND-OFF: Report given to Theodora ROTH.
[2018-07-29 08:00] VITALS: BP 125/87
--- NOTE | 2018-07-29 08:40 | NUR ---
PT NOTE Received MD order for PT evaluation. Theodora RN requesting to hold PT evaluation at this time due to patient's elevated HR. Will follow.
--- NOTE | 2018-07-29 08:44 | NUR ---
NURSE NOTES: Dr MEYER notified about HR 137 and K 5.2,ordered to transfer to tele and stat BMP, noted and carried out. will continue to monitor.
--- NOTE | 2018-07-29 08:52 | Diagnostic Imaging Report ---
Indication: Chest pain for 3 hours Technique: One view of the chest Comparison: 02/05/2018 Findings: Interim development of bilateral diffuse interstitial and airspace disease, with an upper lobe predominance. The pleural spaces are clear. The heart is mildly enlarged. There is a left chest pacemaker again demonstrated. The aorta is ectatic Impression: Bilateral interstitial and airspace disease, either pneumonia or pulmonary edema. Correlate with clinical findings.
[2018-07-29] MEDS ORDERED: Heparin 5000 units/ml inj SUBQ SCH ×2 (09:00→21:00)
[2018-07-29] MEDS ORDERED: Metoprolol Tartrate 50mg tab ORAL SCH (09:00)
[2018-07-29] MEDS ORDERED: Amiodarone 200mg tab ORAL SCH (09:00)
[2018-07-29 09:40] LABS: CHLORIDE 110 MMOL/L (98-107); POTASSIUM 4.1 MMOL/L (3.5-5.1); SODIUM 144 MMOL/L (136-145)
[2018-07-29 10:04] LABS: BLOOD UREA NITROGEN 25 mg/dL (7-18); CALCIUM 8.3 MG/DL (8.5-10.1); CARBON DIOXIDE 23 MMOL/L (21-32); CREATININE 1.1 MG/DL (0.55-1.30)
--- NOTE | 2018-07-29 10:15 | NUR ---
NURSE NOTES: pt is stable, awake and orient x4. pt transferred to tele at 1015, report given to IRA DE LA CRUZ, all belongings are with pt.
--- NOTE | 2018-07-29 11:01 | NUR ---
NURSE NOTES: Patient transferred from [facility]. Report received from IRA Yip for continuity of care. Belongings reviewed and accounted for. Patient oriented to room. Patient is on 2 liters oxygen via nasal cannula. Vital signs taken. Vital signs stable. Will continue to monitor.
--- NOTE | 2018-07-29 11:58 | NUR ---
PT NOTE Patient transferred to telemetry, will need new MD order to re-start physical therapy due to change in medical status.
[2018-07-29 12:00] VITALS: BP 113/62
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
--- NOTE | 2018-07-29 14:42 | NUR ---
SLUDGE FILTRATION ATTENDANTC T TECH 78 Y/O FEMALE BIBA FROM HOME TO [facility] ER CC:GENERALIZED WEAKNESS SI:PNA . GENERALIZED WEAKNESS S/P [place] VS: BP 136/72, P 64, T 102.1, RR 28, SpO2 100 on 2.0L NC RBC 3.25, H&H 9.3/29.4, K 5.2, BUN 28 CXR: Bilateral interstitial and airspace disease, either pneumonia or pulmonary edema. IS:NS 500ml IV CEFTRIAXONE 55ml IVPB ADMITTED TO TELE DCP: RETURN HOME
[2018-07-29] MEDS: Morphine Sulfate 2mg/ml Inj(IV/IM USE ONLY) IVP PRN ×2 (15:07→23:52)
--- NOTE | 2018-07-29 15:51 | NUR ---
NURSE NOTES: Patient noted with fluctuating Heart rate 58-125. Dr. Mejia notified. New order received to contact Dr. Araujo. Dr. Araujo contacted, voicemail left and awaiting call back.
[2018-07-29 16:00] VITALS: BP 114/70
--- NOTE | 2018-07-29 16:01 | Cardiology Report ---
APPROVED REPORT EKG Measurement Heart [id number] Sinus bradycardia Left axis deviation Abnormal ECG
--- NOTE | 2018-07-29 16:19 | NUR ---
NURSE NOTES: Dr. Araujo returned call. New order received for Metoprolol 2.5 mg IVP x1. Will enter order and carry out.
[2018-07-29] MEDS ORDERED: Metoprolol 5mg/5ml Inj IVP SCH (16:30)
--- NOTE | 2018-07-29 17:18 | Cardiology Progress Note ---
Assessment/Plan Assessment/Plan [id number] now in afib hs of same iv bb resume po bb increase amiod to 200 mg bid for a few day resume anticoagulation Objective Last 24 Hour Vital Signs Date Time Temp Pulse Resp B/P (MAP) Pulse Ox O2 Delivery O2 Flow Rate FiO2 07/29/18 16:37 123 110/76 07/29/18 12:41 99.5 07/29/18 12:00 56 07/29/18 12:00 100.1 57 20 113/62 (79) 100 07/29/18 10:32 97.8 07/29/18 09:00 Nasal Cannula 2.0 07/29/18 08:32 137 125/87 07/29/18 08:00 97.8 137 18 125/87 (100) 95 07/29/18 05:11 99.9 62 28 136/72 100 Nasal Cannula 2.0 07/29/18 05:11 99.9 62 28 136/72 100 Nasal Cannula 2.0 07/29/18 05:08 Room Air 07/29/18 02:45 102.1 62 28 136/72 95 Room Air 07/29/18 02:45 64 18 Room Air 07/29/18 02:28 100.2 64 18 136/72 (93) 95 Room Air Laboratory Tests Test 07/29/18 03:33 07/29/18 04:04 07/29/18 09:00 White Blood Count 5.9 K/UL (4.8-10.8) Red Blood Count 3.25 M/UL (4.20-5.40) L Hemoglobin 9.3 G/DL (12.0-16.0) L Hematocrit 29.4 % (37.0-47.0) L Mean Corpuscular Volume 91 FL (80-99) Mean Corpuscular Hemoglobin 28.8 PG (27.0-31.0) Mean Corpuscular Hemoglobin Concent 31.8 G/DL (32.0-36.0) L Red Cell Distribution Width 21.6 % (11.6-14.8) H Platelet Count 156 K/UL (150-450) Mean Platelet Volume 9.5 FL (6.5-10.1) Neutrophils (%) (Auto) 83.5 % (45.0-75.0) H Lymphocytes (%) (Auto) 13.1 % (20.0-45.0) L Monocytes (%) (Auto) 2.2 % (1.0-10.0) Eosinophils (%) (Auto) 0.2 % (0.0-3.0) Basophils (%) (Auto) 1.0 % (0.0-2.0) Sodium Level 142 MMOL/L (136-145) 144 MMOL/L (136-145) Potassium Level 5.2 MMOL/L (3.5-5.1) H 4.1 MMOL/L (3.5-5.1) Chloride Level 108 MMOL/L (98-107) H 110 MMOL/L (98-107) H Carbon Dioxide Level 25 MMOL/L (21-32) 23 MMOL/L (21-32) Anion Gap 9 mmol/L (5-15) Blood Urea Nitrogen 28 mg/dL (7-18) H 25 mg/dL (7-18) H Creatinine 1.3 MG/DL (0.55-1.30) 1.1 MG/DL (0.55-1.30) Estimat Glomerular Filtration Rate mL/min (>60) mL/min (>60) Glucose Level 122 MG/DL (74-106) H 126 MG/DL (74-106) H Calcium Level 8.7 MG/DL (8.5-10.1) 8.3 MG/DL (8.5-10.1) L Total Bilirubin 0.7 MG/DL (0.2-1.0) Aspartate Amino Transf (AST/SGOT) 25 U/L (15-37) Alanine Aminotransferase (ALT/SGPT) 15 U/L (12-78) Alkaline Phosphatase 111 U/L (46-116) Total Creatine Kinase 29 U/L (26-308) Creatine Kinase MB < 0.5 NG/ML (0.0-3.6) Creatine Kinase MB Relative Index 1.7 Troponin I 0.006 ng/mL (0.000-0.056) Total Protein 6.5 G/DL (6.4-8.2) Albumin 3.1 G/DL (3.4-5.0) L Globulin 3.4 g/dL Albumin/Globulin Ratio 0.9 (1.0-2.7) L Lipase 68 U/L (73-393) L Urine Color Pale yellow Urine Appearance Slightly cloudy Urine pH 5 (4.5-8.0) Urine Specific [place] 1.015 (1.005-1.035) Urine Protein 2+ (NEGATIVE) H Urine Glucose (UA) Negative (NEGATIVE) Urine Ketones Negative (NEGATIVE) Urine Blood 2+ (NEGATIVE) H Urine Nitrite Negative (NEGATIVE) Urine Bilirubin Negative (NEGATIVE) Urine Urobilinogen Normal MG/DL (0.0-1.0) Urine Leukocyte Esterase 2+ (NEGATIVE) H Urine RBC 2-4 /HPF (0 - 2) H Urine WBC 30-40 /HPF (0 - 2) H Urine Squamous Epithelial Cells Few /LPF (NONE/OCC) Urine Bacteria Moderate /HPF (NONE) H Mainor Araujo MD Jul 29, 2018 17:18
[2018-07-29] MEDS: Amiodarone 200mg tab ORAL SCH (17:38)
--- NOTE | 2018-07-29 17:39 | Cardiac Electrophysiology PN ---
Subjective Subjective [id number] Objective Last 24 Hour Vital Signs Date Time Temp Pulse Resp B/P (MAP) Pulse Ox O2 Delivery O2 Flow Rate FiO2 07/29/18 16:37 123 110/76 07/29/18 16:00 98.1 119 20 114/70 (85) 96 07/29/18 12:41 99.5 07/29/18 12:00 56 07/29/18 12:00 100.1 57 20 113/62 (79) 100 07/29/18 10:32 97.8 07/29/18 09:00 Nasal Cannula 2.0 07/29/18 08:32 137 125/87 07/29/18 08:00 97.8 137 18 125/87 (100) 95 07/29/18 05:11 99.9 62 28 136/72 100 Nasal Cannula 2.0 07/29/18 05:11 99.9 62 28 136/72 100 Nasal Cannula 2.0 07/29/18 05:08 Room Air 07/29/18 02:45 102.1 62 28 136/72 95 Room Air 07/29/18 02:45 64 18 Room Air 07/29/18 02:28 100.2 64 18 136/72 (93) 95 Room Air Laboratory Tests Test 07/29/18 03:33 07/29/18 04:04 07/29/18 09:00 White Blood Count 5.9 K/UL (4.8-10.8) Red Blood Count 3.25 M/UL (4.20-5.40) L Hemoglobin 9.3 G/DL (12.0-16.0) L Hematocrit 29.4 % (37.0-47.0) L Mean Corpuscular Volume 91 FL (80-99) Mean Corpuscular Hemoglobin 28.8 PG (27.0-31.0) Mean Corpuscular Hemoglobin Concent 31.8 G/DL (32.0-36.0) L Red Cell Distribution Width 21.6 % (11.6-14.8) H Platelet Count 156 K/UL (150-450) Mean Platelet Volume 9.5 FL (6.5-10.1) Neutrophils (%) (Auto) 83.5 % (45.0-75.0) H Lymphocytes (%) (Auto) 13.1 % (20.0-45.0) L Monocytes (%) (Auto) 2.2 % (1.0-10.0) Eosinophils (%) (Auto) 0.2 % (0.0-3.0) Basophils (%) (Auto) 1.0 % (0.0-2.0) Sodium Level 142 MMOL/L (136-145) 144 MMOL/L (136-145) Potassium Level 5.2 MMOL/L (3.5-5.1) H 4.1 MMOL/L (3.5-5.1) Chloride Level 108 MMOL/L (98-107) H 110 MMOL/L (98-107) H Carbon Dioxide Level 25 MMOL/L (21-32) 23 MMOL/L (21-32) Anion Gap 9 mmol/L (5-15) Blood Urea Nitrogen 28 mg/dL (7-18) H 25 mg/dL (7-18) H Creatinine 1.3 MG/DL (0.55-1.30) 1.1 MG/DL (0.55-1.30) Estimat Glomerular Filtration Rate mL/min (>60) mL/min (>60) Glucose Level 122 MG/DL (74-106) H 126 MG/DL (74-106) H Calcium Level 8.7 MG/DL (8.5-10.1) 8.3 MG/DL (8.5-10.1) L Total Bilirubin 0.7 MG/DL (0.2-1.0) Aspartate Amino Transf (AST/SGOT) 25 U/L (15-37) Alanine Aminotransferase (ALT/SGPT) 15 U/L (12-78) Alkaline Phosphatase 111 U/L (46-116) Total Creatine Kinase 29 U/L (26-308) Creatine Kinase MB < 0.5 NG/ML (0.0-3.6) Creatine Kinase MB Relative Index 1.7 Troponin I 0.006 ng/mL (0.000-0.056) Total Protein 6.5 G/DL (6.4-8.2) Albumin 3.1 G/DL (3.4-5.0) L Globulin 3.4 g/dL Albumin/Globulin Ratio 0.9 (1.0-2.7) L Lipase 68 U/L (73-393) L Urine Color Pale yellow Urine Appearance Slightly cloudy Urine pH 5 (4.5-8.0) Urine Specific [place] 1.015 (1.005-1.035) Urine Protein 2+ (NEGATIVE) H Urine Glucose (UA) Negative (NEGATIVE) Urine Ketones Negative (NEGATIVE) Urine Blood 2+ (NEGATIVE) H Urine Nitrite Negative (NEGATIVE) Urine Bilirubin Negative (NEGATIVE) Urine Urobilinogen Normal MG/DL (0.0-1.0) Urine Leukocyte Esterase 2+ (NEGATIVE) H Urine RBC 2-4 /HPF (0 - 2) H Urine WBC 30-40 /HPF (0 - 2) H Urine Squamous Epithelial Cells Few /LPF (NONE/OCC) Urine Bacteria Moderate /HPF (NONE) H River Freitas MD Jul 29, 2018 17:39
[2018-07-29] MEDS ORDERED: Digoxin 0.5mg/2ml Inj IVP SCH ×2 (17:45→18:00)
--- NOTE | 2018-07-29 17:56 | NUR ---
NURSE NOTES: Patient noted with bradycardia on monitor (42). Dr. Mart on floor and notified. New orders received. Per physician, okay to give digoxin IVP.
--- NOTE | 2018-07-29 18:00 | History & Physical ---
History and Physical History & Physicial Dictated for Int Med-Dr Adrian no. [id number] Roshan Edwards MD Jul 29, 2018 18:00
--- NOTE | 2018-07-29 19:20 | NUR ---
NURSE NOTES: Received report from Ashley RN, pt. in bed awake- opens eyes to name, pt. is A/O x's4- Kinyarwanda speaking- able to make needs known, cardiac monitoring on, no signs or symptoms of acute cardiac or respiratory distress noted, bed in lowest position and call light within easy reach, bed alarm on, side rails up x's3 and safety brakes engaged, pt. appears to be sating well on 2L NC at 99%- no distress noted, comfort measures provided, all needs attended to, pt. is clean and dry in bed, Pure wick intact and set to suction, lt. hand 22G- IV intact and patent-SL, safety measures continued, will continue with plan of care.
--- NOTE | 2018-07-29 19:26 | NUR ---
HAND-OFF: Report given to IRA Jackson.
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
[2018-07-29 20:00] VITALS: BP 118/60
[2018-07-29] MEDS: Metoprolol Tartrate 50mg tab ORAL SCH (20:28)
--- NOTE | 2018-07-29 20:29 | NUR ---
NURSE NOTES: decreased heart rate pulse 51- Lopressor not administered.
--- NOTE | 2018-07-29 20:30 | History and Physical Report ---
DATE OF ADMISSION: 07/29/2018 CHIEF COMPLAINT: The patient is an 78-year-old female who presents with chief complaint of fever and generalized weakness for 1 week. HISTORY OF PRESENT ILLNESS: Began one week prior to admission. The patient began to have subjective fevers and chills. The patient also felt like she was dizzy. The patient states the room was not spinning. However, she felt like she was unsteady. The patient presented to [facility] emergency room. The patient was found to have heart rate in the 130s. The patient also was found to have fever of 100.1 degrees Fahrenheit. The patient was admitted for tachycardia and fever of unknown origin. REVIEW OF SYSTEMS: CONSTITUTIONAL: The patient denies weight loss or weight gain. The patient complains of subjective fevers and chills as above. HEENT: The patient denies ear or throat pain. The patient denies headache. CARDIOVASCULAR: The patient denies palpitations or chest pain. CHEST: The patient complains of nonproductive cough. The patient denies wheezes. ABDOMEN: The patient denies nausea, vomiting, diarrhea, or constipation. GENITOURINARY: The patient denies dysuria or increased frequency of urination. NEUROMUSCULAR: The patient complains of generalized weakness and ataxia as above. The patient denies seizures. PAST MEDICAL HISTORY: Significant for: 1. Chronic atrial fibrillation. 2. Polycythemia vera. 3. Hypertension. 4. Obstructive sleep apnea. 5. Coronary artery disease, status post myocardial infarction. 6. Hypercholesterolemia. 7. Congestive heart failure. PAST SURGICAL HISTORY: Significant for: 1. Pacemaker implantation. 2. Total abdominal hysterectomy. CURRENT MEDICATIONS: 1. Amiodarone 200 mg p.o. daily. 2. Calcium carbonate 500 mg p.o. daily. 3. Clonidine 0.1 mg p.o. 3 times daily p.r.n. 4. Pradaxa 150 mg p.o. twice daily. 5. Lasix 40 mg p.o. daily. 6. Gabapentin 400 mg p.o. 3 times daily. 7. Hydroxyurea 500 mg p.o. daily. 8. Lisinopril 20 mg p.o. twice daily. 9. Metoprolol 50 mg p.o. twice daily. 10. Potassium chloride 20 mEq p.o. daily. 11. Vitamin B 100 mg p.o. daily. ALLERGIES: No known drug allergies. SOCIAL HISTORY: The patient is single and lives with a niece and her sister. The patient denies tobacco or alcohol use. PHYSICAL EXAMINATION: VITAL SIGNS: Temperature 100.1 degrees Fahrenheit, pulse 57 to 135, blood pressure 113/62, respirations 20. GENERAL: The patient is a well-developed and well-nourished female, in no apparent distress. HEENT: Eyes, pupils are equal and responsive to light and accommodation. Extraocular movements are intact. NECK: Supple without lymphadenopathy. CHEST: Lungs are clear to auscultation bilaterally without wheezes or rales. CARDIOVASCULAR: Regular rhythm and rate. S1, S2 normal without murmurs, rubs, or gallops. ABDOMEN: Soft, nontender, nondistended. Positive bowel sounds. No evidence of hepatosplenomegaly. Currently, no rebound or guarding noted. EXTREMITIES: Negative for clubbing, cyanosis, edema. RECTAL/GENITAL: Not performed. NEUROLOGIC: Cranial nerves II through XII are grossly intact without focal deficits. Motor strength is 5/5 bilaterally. Deep tendon reflexes are 2+ plantar. LABORATORY STUDIES: WBC 5.9, hemoglobin 9.3, hematocrit 29.4, platelets 156,000. Sodium 143, potassium 5.2, chloride 108, CO2 25, BUN 28, creatinine 1.3, glucose 122. Troponin 0.006. Urinalysis showed 2+ protein, 2+ blood with 30 to 40 wbc's. EKG demonstrated atrial fibrillation with a ventricular rate of approximately 120 beats per minute. There are no acute ST changes or Q-waves noted. ASSESSMENT: This is an 78-year-old female. 1. Fever. 2. Vertigo. 3. Atrial fibrillation with rapid ventricular rate. 4. Polycythemia vera. 5. Hypertension. 6. Obstructive sleep apnea. 7. Coronary artery disease. 8. Hypercholesteremia. 9. Congestive heart failure. TREATMENT: 1. Atrial fibrillation/coronary artery disease/congestive heart failure. Cardiology consultation has been obtained with Dr. River Freitas. Serial troponin levels will be performed. BNP is pending. An echocardiogram is pending. The patient has been started on digoxin for rapid ventricular rate. 2. Polycythemia vera. Continue hydroxyurea as above. 3. Hypertension. Continue clonidine as above. 4. Obstructive sleep apnea. 5. Hypercholesterolemia. 6. History of congestive heart failure. Roshan Digna Edwards DR: BRANDON JOB#: [id number] CC:
[2018-07-29] MEDS: Dabigatran 150mg cap ORAL SCH (20:35)
[2018-07-29] MEDS ORDERED: Miralax 17gm pkt ORAL PRN ×2 (21:00)
[2018-07-29] MEDS ORDERED: Zolpidem 5mg tab ORAL PRN ×2 (21:00)
[2018-07-30] VITALS: BP 144/77
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
[2018-07-30] MEDS: cefTRIAXone 1 GM in D5W 55 ML IVPB SCH (03:03)
[2018-07-30 04:00] VITALS: BP 119/65
--- NOTE | 2018-07-30 07:03 | NUR ---
HAND-OFF: Report given to Aure RN, pt. remains stable and no signs of distress noted- nurse aware to get new bed for pt. as bed alarm stopped working.
--- NOTE | 2018-07-30 07:26 | NUR ---
NURSE NOTES: Received patient and report from Dejuan ROTH in bed resting, denies any pain. No s/s of acute distress noted. Educate patient to use the call light to call for anything, patient stated understanding. Bed is in lowest position, brakes engaged for safety, call light is within reach. Will continue with the plan of care.
[2018-07-30 08:00] VITALS: BP 117/73
[2018-07-30 08:12] LABS: HEMATOCRIT 27.2 % (37.0-47.0); HEMOGLOBIN 8.7 G/DL (12.0-16.0); MEAN CORPUSCULAR VOLUME 91 FL (80-99); PLATELET COUNT 170 K/UL (150-450); RED BLOOD COUNT 2.99 M/UL (4.20-5.40); RED CELL DISTRIBUTION WIDTH 22.1 % (11.6-14.8)
[2018-07-30 08:25] LABS: INR 1.8 (0.9-1.1)
[2018-07-30 08:28] LABS: LACTATE DEHYDROGENASE 504 U/L (81-234)
[2018-07-30 08:32] LABS: % IRON SATURATION 8 % (15-50); IRON 13 ug/dL (50-175); TOTAL IRON BINDING CAPACITY 172 ug/dL (250-450)
[2018-07-30 08:37] LABS: ALANINE AMINOTRANSFERASE 16 U/L (12-78); ALBUMIN 2.7 G/DL (3.4-5.0); ALBUMIN/GLOBULIN RATIO 0.7 (1.0-2.7); ALKALINE PHOSPHATASE 89 U/L (46-116); ANION GAP 10 mmol/L (5-15); ASPARTATE AMINO TRANSFERASE 23 U/L (15-37); BILIRUBIN,TOTAL 1.1 MG/DL (0.2-1.0); BLOOD UREA NITROGEN 20 mg/dL (7-18); CALCIUM 8.9 MG/DL (8.5-10.1); CARBON DIOXIDE 24 MMOL/L (21-32); CHLORIDE 109 MMOL/L (98-107); CHOLESTEROL 104 MG/DL (< 200); HDL CHOLESTEROL 33 MG/DL (40-60); POTASSIUM 4.1 MMOL/L (3.5-5.1); SODIUM 143 MMOL/L (136-145); TRIGLYCERIDES 77 MG/DL (30-150)
[2018-07-30 08:43] LABS: BILIRUBIN,DIRECT 0.5 MG/DL (0.0-0.3)
--- NOTE | 2018-07-30 08:47 | NUR ---
CASE MANAGEMENT:REVIEW 07/30/18 SI: AFIB W/RVR. COPD. CHF 101.8 61 18 119/65 96% ON 2L/NC H/H-8.7/27.2 IS: IV ROCEPHIN Q24 LEXAPRO PO QD DIGOXIN PO Q LOPRESSOR PO Q12 AMIODARONE PO BID IV MORPHINE Q4HRS PRN : TELEMETRY STATUS DCP: FROM HOME
[2018-07-30] MEDS: Metoprolol Tartrate 50mg tab ORAL SCH ×2 (08:48→21:43)
[2018-07-30] MEDS: Amiodarone 200mg tab ORAL SCH ×2 (08:48→17:02)
[2018-07-30] MEDS: Dabigatran 150mg cap ORAL SCH (08:49)
[2018-07-30] MEDS: Digoxin 0.125mg tab ORAL SCH (08:49)
[2018-07-30] MEDS ORDERED: Amiodarone 200mg tab ORAL SCH (09:00)
[2018-07-30 12:00] VITALS: BP 118/87
--- NOTE | 2018-07-30 12:29 | Pulmonology Progress Note ---
Assessment/Plan Problems: (1) Pulmonary edema (2) Acute encephalopathy (3) RUQ abdominal pain (4) COPD (chronic obstructive pulmonary disease) (5) Atrial fibrillation (6) CAD (coronary artery disease) (7) Pacemaker (8) KELVIN (obstructive sleep apnea) (9) Peripheral neuropathy Assessment/Plan check cxr and BNP in am titrate cardiac meds, still tachycardic symptomatic treatment check electrolytes check urine cultures dvt prophylaxis. Subjective ROS Limited/Unobtainable: No Interval Events: still tachycardic Constitutional: Reports: no symptoms HEENT: Repors: no symptoms Allergies: Coded Allergies: No Known Allergies (Unverified , 04/24/18) Objective Last 24 Hour Vital Signs Date Time Temp Pulse Resp B/P (MAP) Pulse Ox O2 Delivery O2 Flow Rate FiO2 07/30/18 09:00 Nasal Cannula 2.0 07/30/18 08:49 133 07/30/18 08:48 133 117/73 07/30/18 08:00 61 07/30/18 08:00 98.2 61 18 117/73 (88) 97 07/30/18 04:00 98.2 61 18 119/65 (83) 96 07/30/18 04:00 60 07/30/18 00:52 99.2 07/30/18 00:52 99.2 07/30/18 00:22 101.8 07/30/18 00:00 101.8 66 20 144/77 (99) 96 07/30/18 00:00 60 07/29/18 21:00 Nasal Cannula 2.0 07/29/18 20:28 51 115/60 07/29/18 20:00 52 07/29/18 20:00 98.0 53 20 118/60 (79) 97 07/29/18 18:47 56 07/29/18 16:37 123 110/76 07/29/18 16:00 116 07/29/18 16:00 98.1 119 20 114/70 (85) 96 Intake and Output 07/29/18 07/30/18 18:59 06:59 Intake Total 250 ml Output Total 200 ml Balance 250 ml -200 ml Intake Oral 250 ml Output Urine Total 200 ml # Voids 4 # Bowel Movements 1 1 General Appearance: WD/WN HEENT: normocephalic, atraumatic Respiratory/Chest: chest wall non-tender, lungs clear Cardiovascular: normal peripheral pulses, normal rate Abdomen: normal bowel sounds, soft, non tender Genitourinary: normal external genitalia Extremities: no cyanosis Neurologic/Psychiatric: library page II-XII grossly normal Microbiology Date/Time Source Procedure Growth Status 07/29/18 04:00 Blood Blood Culture - Preliminary NO GROWTH AFTER 24 HOURS Resulted 07/29/18 04:00 Blood Blood Culture - Preliminary NO GROWTH AFTER 24 HOURS Resulted 07/29/18 04:04 Urine,Clean Catch Urine Culture - Preliminary Resulted Laboratory Tests 07/30/18 07:40: White Blood Count 7.0, Red Blood Count 2.99L, Hemoglobin 8.7L, Hematocrit 27.2L , Mean Corpuscular Volume 91, Mean Corpuscular Hemoglobin 28.9, Mean Corpuscular Hemoglobin Concent 31.8L, Red Cell Distribution Width 22.1H, Platelet Count 170, Mean Platelet Volume 8.4, Neutrophils (%) (Auto) , Lymphocytes (%) (Auto) , Monocytes (%) (Auto) , Eosinophils (%) (Auto) , Basophils (%) (Auto) , Differential Total Cells Counted 100, Neutrophils % ( Manual) 87H, Lymphocytes % (Manual) 5L, Monocytes % (Manual) 1, Eosinophils % ( Manual) 0, Basophils % (Manual) 0, Band Neutrophils 7, Nucleated Red Blood Cells 1, Platelet Estimate DecreasedL, Platelet Morphology Normal, Anisocytosis 2+, Tear Drop Cells 1+, Ovalocytes 2+, Erythrocyte Sedimentation Rate 91H, Reticulocyte Count 1.6, Prothrombin Time 18.6H, Prothromb Time International Ratio 1.8H, Activated Partial Thromboplast Time 63H, Sodium Level 143, Potassium Level 4.1, Chloride Level 109H, Carbon Dioxide Level 24, Anion Gap 10 , Blood Urea Nitrogen 20H, Creatinine 1.0, Estimat Glomerular Filtration Rate , Glucose Level 97, Hemoglobin A1c 5.0, Calcium Level 8.9, Iron Level 13L, Total Iron Binding Capacity 172L, Percent Iron Saturation 8L, Unsaturated Iron Binding 159, Total Bilirubin 1.1H, Direct Bilirubin 0.5H, Aspartate Amino Transf (AST/SGOT) 23, Alanine Aminotransferase (ALT/SGPT) 16, Alkaline Phosphatase 89, Lactate Dehydrogenase 504H, Troponin I 0.038, Total Protein 6.5 , Albumin 2.7L, Globulin 3.8, Albumin/Globulin Ratio 0.7L, Triglycerides Level 77, Cholesterol Level 104, LDL Cholesterol 53, HDL Cholesterol 33L, Cholesterol/ HDL Ratio 3.2L, Carcinoembryonic Antigen [Pending], Vitamin B12 Level 1400H, Folate 11.9, Thyroid Stimulating Hormone (TSH) 2.742, Digoxin Level 0.7L Current Medications Medications (Trade) Dose Ordered Sig/Escobar Route PRN Reason Start Time Stop Time Status Last Admin Dose Admin Acetaminophen (Tylenol) 650 mg Q4H PRN ORAL T>100.5 07/29/18 11:00 08/28/18 06:59 07/30/18 00:22 Amiodarone HCl (Cordarone) 200 mg BID ORAL 07/29/18 18:00 08/28/18 17:59 07/30/18 08:48 Ceftriaxone Sodium 1 gm/ Dextrose 55 ml @ 110 mls/hr Q24H IVPB 07/30/18 04:00 08/06/18 03:59 07/30/18 03:03 Dabigatran (Pradaxa) 150 mg EVERY 12 HOURS ORAL 07/29/18 21:00 08/28/18 20:59 07/30/18 08:49 Dextrose (Dextrose 50%) 25 ml Q30M PRN IV Hypoglycemia 07/29/18 10:45 08/28/18 07:03 Dextrose (Dextrose 50%) 50 ml Q30M PRN IV hypoglycemia 07/29/18 10:45 08/28/18 07:14 Digoxin (Lanoxin) 0.125 mg DAILY ORAL 07/30/18 09:00 08/29/18 08:59 07/30/18 08:49 Escitalopram Oxalate (Lexapro) 10 mg DAILY ORAL 07/30/18 09:00 08/28/18 08:59 07/30/18 08:48 Lorazepam (Ativan 2mg/ml 1ml) 0.5 mg Q4H PRN IV For Anxiety 07/29/18 11:00 08/05/18 06:59 Metoprolol Tartrate (Lopressor) 50 mg EVERY 12 HOURS ORAL 07/29/18 21:00 08/28/18 08:59 07/30/18 08:48 Morphine Sulfate (Morphine Sulfate) 1 mg Q4H PRN IVP PAIN 4-10 07/29/18 11:00 08/05/18 06:59 07/29/18 23:52 Ondansetron HCl (Zofran) 4 mg Q6H PRN IVP Nausea & Vomiting 07/29/18 11:00 08/28/18 10:59 Polyethylene Glycol (Miralax) 17 gm HSPRN PRN ORAL Constipation 07/29/18 21:00 08/28/18 20:59 Zolpidem Tartrate (Ambien) 5 mg HSPRN PRN ORAL Insomnia 07/29/18 21:00 08/05/18 20:59 Kelly Mejia MD Jul 30, 2018 12:29
--- NOTE | 2018-07-30 12:49 | Internal Med Progress Note ---
Subjective Date of Service: Jul 30, 2018 Physician Name Roshan Edwards Attending Physician Antonio Adrian MD Current Medications Medications (Trade) Dose Ordered Sig/Escobar Route PRN Reason Start Time Stop Time Status Last Admin Dose Admin Acetaminophen (Tylenol) 650 mg Q4H PRN ORAL T>100.5 07/29/18 11:00 08/28/18 06:59 07/30/18 00:22 Amiodarone HCl (Cordarone) 200 mg BID ORAL 07/29/18 18:00 08/28/18 17:59 07/30/18 08:48 Ceftriaxone Sodium 1 gm/ Dextrose 55 ml @ 110 mls/hr Q24H IVPB 07/30/18 04:00 08/06/18 03:59 07/30/18 03:03 Dabigatran (Pradaxa) 150 mg EVERY 12 HOURS ORAL 07/29/18 21:00 08/28/18 20:59 07/30/18 08:49 Dextrose (Dextrose 50%) 25 ml Q30M PRN IV Hypoglycemia 07/29/18 10:45 08/28/18 07:03 Dextrose (Dextrose 50%) 50 ml Q30M PRN IV hypoglycemia 07/29/18 10:45 08/28/18 07:14 Digoxin (Lanoxin) 0.125 mg DAILY ORAL 07/30/18 09:00 08/29/18 08:59 07/30/18 08:49 Escitalopram Oxalate (Lexapro) 10 mg DAILY ORAL 07/30/18 09:00 08/28/18 08:59 07/30/18 08:48 Lorazepam (Ativan 2mg/ml 1ml) 0.5 mg Q4H PRN IV For Anxiety 07/29/18 11:00 08/05/18 06:59 Metoprolol Tartrate (Lopressor) 50 mg EVERY 12 HOURS ORAL 07/29/18 21:00 08/28/18 08:59 07/30/18 08:48 Morphine Sulfate (Morphine Sulfate) 1 mg Q4H PRN IVP PAIN 4-10 07/29/18 11:00 08/05/18 06:59 07/29/18 23:52 Ondansetron HCl (Zofran) 4 mg Q6H PRN IVP Nausea & Vomiting 07/29/18 11:00 08/28/18 10:59 Polyethylene Glycol (Miralax) 17 gm HSPRN PRN ORAL Constipation 07/29/18 21:00 08/28/18 20:59 Zolpidem Tartrate (Ambien) 5 mg HSPRN PRN ORAL Insomnia 07/29/18 21:00 08/05/18 20:59 Allergies: Coded Allergies: No Known Allergies (Unverified , 04/24/18) ROS Limited/Unobtainable: No Constitutional: Reports: chills, fever HEENT: Reports: no symptoms Cardiovascular: Reports: no symptoms Respiratory: Reports: no symptoms Gastrointestinal/Abdominal: Reports: no symptoms Genitourinary: Reports: no symptoms Neurologic/Psychiatric: Reports: no symptoms Subjective 78 YO F admitted with fever and vertigo. Cover for Int Med-Dr Adrian Objective Last Vital Signs Date Time Temp Pulse Resp B/P (MAP) Pulse Ox O2 Delivery O2 Flow Rate FiO2 07/30/18 09:00 Nasal Cannula 2.0 07/30/18 08:49 133 07/30/18 08:48 117/73 07/30/18 08:00 98.2 18 97 Laboratory Tests Test 07/30/18 07:40 White Blood Count 7.0 K/UL (4.8-10.8) Red Blood Count 2.99 M/UL (4.20-5.40) L Hemoglobin 8.7 G/DL (12.0-16.0) L Hematocrit 27.2 % (37.0-47.0) L Mean Corpuscular Volume 91 FL (80-99) Mean Corpuscular Hemoglobin 28.9 PG (27.0-31.0) Mean Corpuscular Hemoglobin Concent 31.8 G/DL (32.0-36.0) L Red Cell Distribution Width 22.1 % (11.6-14.8) H Platelet Count 170 K/UL (150-450) Mean Platelet Volume 8.4 FL (6.5-10.1) Neutrophils (%) (Auto) % (45.0-75.0) Lymphocytes (%) (Auto) % (20.0-45.0) Monocytes (%) (Auto) % (1.0-10.0) Eosinophils (%) (Auto) % (0.0-3.0) Basophils (%) (Auto) % (0.0-2.0) Differential Total Cells Counted 100 Neutrophils % (Manual) 87 % (45-75) H Lymphocytes % (Manual) 5 % (20-45) L Monocytes % (Manual) 1 % (1-10) Eosinophils % (Manual) 0 % (0-3) Basophils % (Manual) 0 % (0-2) Band Neutrophils 7 % (0-8) Nucleated Red Blood Cells 1 /100 WBC Platelet Estimate Decreased L Platelet Morphology Normal Anisocytosis 2+ Tear Drop Cells 1+ Ovalocytes 2+ Erythrocyte Sedimentation Rate 91 MM/HR (0-30) H Reticulocyte Count 1.6 % (0.5-2.0) Prothrombin Time 18.6 SEC (9.30-11.50) H Prothromb Time International Ratio 1.8 (0.9-1.1) H Activated Partial Thromboplast Time 63 SEC (23-33) H Sodium Level 143 MMOL/L (136-145) Potassium Level 4.1 MMOL/L (3.5-5.1) Chloride Level 109 MMOL/L (98-107) H Carbon Dioxide Level 24 MMOL/L (21-32) Anion Gap 10 mmol/L (5-15) Blood Urea Nitrogen 20 mg/dL (7-18) H Creatinine 1.0 MG/DL (0.55-1.30) Estimat Glomerular Filtration Rate mL/min (>60) Glucose Level 97 MG/DL (74-106) Hemoglobin A1c 5.0 % (4.3-6.0) Calcium Level 8.9 MG/DL (8.5-10.1) Iron Level 13 ug/dL (50-175) L Total Iron Binding Capacity 172 ug/dL (250-450) L Percent Iron Saturation 8 % (15-50) L Unsaturated Iron Binding 159 ug/dL (112-346) Total Bilirubin 1.1 MG/DL (0.2-1.0) H Direct Bilirubin 0.5 MG/DL (0.0-0.3) H Aspartate Amino Transf (AST/SGOT) 23 U/L (15-37) Alanine Aminotransferase (ALT/SGPT) 16 U/L (12-78) Alkaline Phosphatase 89 U/L (46-116) Lactate Dehydrogenase 504 U/L (81-234) H Troponin I 0.038 ng/mL (0.000-0.056) Total Protein 6.5 G/DL (6.4-8.2) Albumin 2.7 G/DL (3.4-5.0) L Globulin 3.8 g/dL Albumin/Globulin Ratio 0.7 (1.0-2.7) L Triglycerides Level 77 MG/DL (30-150) Cholesterol Level 104 MG/DL (< 200) LDL Cholesterol 53 mg/dL (<100) HDL Cholesterol 33 MG/DL (40-60) L Cholesterol/HDL Ratio 3.2 (3.3-4.4) L Carcinoembryonic Antigen Pending Vitamin B12 Level 1400 PG/ML (193-986) H Folate 11.9 NG/ML (8.6-58.9) Thyroid Stimulating Hormone (TSH) 2.742 uiU/mL (0.358-3.740) Digoxin Level 0.7 NG/ML (0.9-2.0) L Microbiology Date/Time Source Procedure Growth Status 07/29/18 04:00 Blood Blood Culture - Preliminary NO GROWTH AFTER 24 HOURS Resulted 07/29/18 04:00 Blood Blood Culture - Preliminary NO GROWTH AFTER 24 HOURS Resulted 07/29/18 04:04 Urine,Clean Catch Urine Culture - Preliminary Resulted Intake and Output 07/29/18 07/30/18 18:59 06:59 Intake Total 250 ml Output Total 200 ml Balance 250 ml -200 ml Intake Oral 250 ml Output Urine Total 200 ml # Voids 4 # Bowel Movements 1 1 Objective PHYSICAL EXAMINATION: GENERAL: The patient is a well-developed and well-nourished female, in no apparent distress. HEENT: Eyes, pupils are equal and responsive to light and accommodation. Extraocular movements are intact. NECK: Supple without lymphadenopathy. CHEST: Lungs are clear to auscultation bilaterally without wheezes or rales. CARDIOVASCULAR: Regular rhythm and rate. S1, S2 normal without murmurs, rubs, or gallops. ABDOMEN: Soft, nontender, nondistended. Positive bowel sounds. No evidence of hepatosplenomegaly. Currently, no rebound or guarding noted. EXTREMITIES: Negative for clubbing, cyanosis, edema. RECTAL/GENITAL: Not performed. NEUROLOGIC: Cranial nerves II through XII are grossly intact without focal deficits. Motor strength is 5/5 bilaterally. Deep tendon reflexes are 2+ plantar. Assessment/Plan Assessment/Plan ASSESSMENT: This is an 78-year-old female. 1. Fever. 2. Vertigo. 3. Atrial fibrillation with rapid ventricular rate. 4. Polycythemia vera. 5. Hypertension. 6. Obstructive sleep apnea. 7. Coronary artery disease. 8. Hypercholesteremia. 9. Congestive heart failure. TREATMENT: 1. Atrial fibrillation/coronary artery disease/congestive heart failure. Cardiology consultation has been obtained with Dr. River Freitas. Serial troponin levels will be performed. BNP is pending. An echocardiogram is pending. The patient has been started on digoxin for rapid ventricular rate. 2. Polycythemia vera. Continue hydroxyurea as above. 3. Hypertension. Continue clonidine as above. 4. Obstructive sleep apnea. 5. Hypercholesterolemia. 6. History of congestive heart failure. 7. Pneumonia/fever A pulmonary consultation has been obtained with Dr Mejia. Continue empiric ceftriaxone Roshan Edwards MD Jul 30, 2018 12:49
[2018-07-30] MEDS: Morphine Sulfate 2mg/ml Inj(IV/IM USE ONLY) IVP PRN ×2 (12:55→21:44)
[2018-07-30] MEDS ORDERED: Iron Sucrose 200 MG in NS 110 ML IV ONE (15:00)
[2018-07-30 16:00] VITALS: BP 128/90
--- NOTE | 2018-07-30 16:04 | NUR ---
Marcos NOTE: [facility]cos EVALUATION ATTEMPTED HOWEVER PATIENT DECLINED TO PARTICIPATE DUE TO C/O NOT FEELING WELL, STATED THAT SHE'S FEELING TOO TIRED AND JUST WANTED TO REST. PROVIDED ENCOURAGEMENT FROM Marcos AND NEPHEW HOWEVER PATIENT INSISTED THAT SHE WOULD LIKE TO REST FOR TODAY AND WILL PARTICIPATE TOMORROW.
--- NOTE | 2018-07-30 16:15 | Cardiac Electrophysiology PN ---
Assessment/Plan Assessment/Plan 1. Atrial fibrillation with rapid ventricular response. On metoprolol 50 mg bid and amiodarone 200 mg b.i.d. and digoxin t Hold Pradaxa for [pacer generator change 2. Status post [employer] pacemaker. Interrogated the pacemaker that showed pacer reached EOL 04/10/18. Not pacer dependent. Will need battery change before DC. 3. Hypertension. Continue metoprolol 50 mg b.i.d. 4. Polycythemia vera. The patient is on hydroxyurea. 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 Subjective Subjective Pacer interrogated and showed it has reached End of life since 02/2018. Feeling better. Remained in SR Objective Last 24 Hour Vital Signs Date Time Temp Pulse Resp B/P (MAP) Pulse Ox O2 Delivery O2 Flow Rate FiO2 07/30/18 12:00 97.7 100 20 118/87 (97) 95 07/30/18 12:00 100 07/30/18 09:00 Nasal Cannula 2.0 07/30/18 08:49 133 07/30/18 08:48 133 117/73 07/30/18 08:00 61 07/30/18 08:00 98.2 61 18 117/73 (88) 97 07/30/18 04:00 98.2 61 18 119/65 (83) 96 07/30/18 04:00 60 07/30/18 00:52 99.2 07/30/18 00:52 99.2 07/30/18 00:22 101.8 07/30/18 00:00 101.8 66 20 144/77 (99) 96 07/30/18 00:00 60 07/29/18 21:00 Nasal Cannula 2.0 07/29/18 20:28 51 115/60 07/29/18 20:00 52 07/29/18 20:00 98.0 53 20 118/60 (79) 97 07/29/18 18:47 56 07/29/18 16:37 123 110/76 Intake and Output 07/29/18 07/30/18 18:59 06:59 Intake Total 250 ml Output Total 200 ml Balance 250 ml -200 ml Intake Oral 250 ml Output Urine Total 200 ml # Voids 4 # Bowel Movements 1 1 Laboratory Tests Test 07/30/18 07:40 White Blood Count 7.0 K/UL (4.8-10.8) Red Blood Count 2.99 M/UL (4.20-5.40) L Hemoglobin 8.7 G/DL (12.0-16.0) L Hematocrit 27.2 % (37.0-47.0) L Mean Corpuscular Volume 91 FL (80-99) Mean Corpuscular Hemoglobin 28.9 PG (27.0-31.0) Mean Corpuscular Hemoglobin Concent 31.8 G/DL (32.0-36.0) L Red Cell Distribution Width 22.1 % (11.6-14.8) H Platelet Count 170 K/UL (150-450) Mean Platelet Volume 8.4 FL (6.5-10.1) Neutrophils (%) (Auto) % (45.0-75.0) Lymphocytes (%) (Auto) % (20.0-45.0) Monocytes (%) (Auto) % (1.0-10.0) Eosinophils (%) (Auto) % (0.0-3.0) Basophils (%) (Auto) % (0.0-2.0) Differential Total Cells Counted 100 Neutrophils % (Manual) 87 % (45-75) H Lymphocytes % (Manual) 5 % (20-45) L Monocytes % (Manual) 1 % (1-10) Eosinophils % (Manual) 0 % (0-3) Basophils % (Manual) 0 % (0-2) Band Neutrophils 7 % (0-8) Nucleated Red Blood Cells 1 /100 WBC Platelet Estimate Decreased L Platelet Morphology Normal Anisocytosis 2+ Tear Drop Cells 1+ Ovalocytes 2+ Erythrocyte Sedimentation Rate 91 MM/HR (0-30) H Reticulocyte Count 1.6 % (0.5-2.0) Prothrombin Time 18.6 SEC (9.30-11.50) H Prothromb Time International Ratio 1.8 (0.9-1.1) H Activated Partial Thromboplast Time 63 SEC (23-33) H Sodium Level 143 MMOL/L (136-145) Potassium Level 4.1 MMOL/L (3.5-5.1) Chloride Level 109 MMOL/L (98-107) H Carbon Dioxide Level 24 MMOL/L (21-32) Anion Gap 10 mmol/L (5-15) Blood Urea Nitrogen 20 mg/dL (7-18) H Creatinine 1.0 MG/DL (0.55-1.30) Estimat Glomerular Filtration Rate mL/min (>60) Glucose Level 97 MG/DL (74-106) Hemoglobin A1c 5.0 % (4.3-6.0) Calcium Level 8.9 MG/DL (8.5-10.1) Iron Level 13 ug/dL (50-175) L Total Iron Binding Capacity 172 ug/dL (250-450) L Percent Iron Saturation 8 % (15-50) L Unsaturated Iron Binding 159 ug/dL (112-346) Total Bilirubin 1.1 MG/DL (0.2-1.0) H Direct Bilirubin 0.5 MG/DL (0.0-0.3) H Aspartate Amino Transf (AST/SGOT) 23 U/L (15-37) Alanine Aminotransferase (ALT/SGPT) 16 U/L (12-78) Alkaline Phosphatase 89 U/L (46-116) Lactate Dehydrogenase 504 U/L (81-234) H Troponin I 0.038 ng/mL (0.000-0.056) Total Protein 6.5 G/DL (6.4-8.2) Albumin 2.7 G/DL (3.4-5.0) L Globulin 3.8 g/dL Albumin/Globulin Ratio 0.7 (1.0-2.7) L Triglycerides Level 77 MG/DL (30-150) Cholesterol Level 104 MG/DL (< 200) LDL Cholesterol 53 mg/dL (<100) HDL Cholesterol 33 MG/DL (40-60) L Cholesterol/HDL Ratio 3.2 (3.3-4.4) L Carcinoembryonic Antigen Pending Vitamin B12 Level 1400 PG/ML (193-986) H Folate 11.9 NG/ML (8.6-58.9) Thyroid Stimulating Hormone (TSH) 2.742 uiU/mL (0.358-3.740) Digoxin Level 0.7 NG/ML (0.9-2.0) L Microbiology Date/Time Source Procedure Growth Status 07/29/18 04:00 Blood Blood Culture - Preliminary NO GROWTH AFTER 24 HOURS Resulted 07/29/18 04:00 Blood Blood Culture - Preliminary NO GROWTH AFTER 24 HOURS Resulted 07/29/18 04:04 Urine,Clean Catch Urine Culture - Preliminary Resulted Objective HEAD AND NECK: Mild JVD. LUNGS: Decreased breath sounds. CARDIOVASCULAR: Irregularly irregular. S1 and S2 with no gallop or murmur and tachycardic. Pacemaker left subclavian. ABDOMEN: Soft. EXTREMITIES: No pitting edema. River Freitas MD Jul 30, 2018 16:15
--- NOTE | 2018-07-30 16:15 | NUR ---
Social Service Note SW completed letter for patient's son Kishan Moreno. Family not at bedside. Letter provided to primary nurse who placed it in patient's chart. Patient with previous falls at home. PT to evaluate with recommendations. Patient with limited Tongan however states she will return home with her son providing support. Will monitor and assist as needed.
--- NOTE | 2018-07-30 19:16 | NUR ---
NURSE NOTES: Report received from Cameron Trejo RN. Pt is resting in bed in stable condition. Pt is AOx3, primarily mohawk speaking but is able to converse in Pakistani. Pt is on room air and breathing is even and unlabored. No acute distress noted. IV site is R fa #[id number] and is asymptomatic, patent, and intact. Bed is placed in lowest position with brake engaged, side rails up x3, and bed alarm on. Call light and side table placed within reach. Pt instructed to call before attempting to get out of bed. Pt agreeable and verbalized understanding. Will continue to monitor.
--- NOTE | 2018-07-30 19:16 | NUR ---
HAND-OFF: Report given to Brenna ROTH.Patient is in stable condition.
[2018-07-30 20:00] VITALS: BP 140/99
[2018-07-31] VITALS: BP 132/86
--- NOTE | 2018-07-31 03:20 | NUR ---
NURSE NOTES: Pt converted from afib with rate around 100 bpm to V-paced with underlying sinus bradycardia to 54 beats per minute. Pt is resting in bed in stable condition. VSS. No acute distress noted. Will notify MD Freitas.
[2018-07-31 04:00] VITALS: BP 122/65
[2018-07-31] MEDS: Morphine Sulfate 2mg/ml Inj(IV/IM USE ONLY) IVP PRN ×3 (04:04→21:22)
[2018-07-31] MEDS: cefTRIAXone 1 GM in D5W 55 ML IVPB SCH (04:05)
--- NOTE | 2018-07-31 07:25 | NUR ---
HAND-OFF: Report given to Cameron Klein RN. Pt is resting in bed in stable condition. No acute distress noted. Endorsed plan of care.
[2018-07-31 07:30] LABS: HEMOGLOBIN 8.9 G/DL (12.0-16.0); MEAN CORPUSCULAR VOLUME 92 FL (80-99); PLATELET COUNT 182 K/UL (150-450); RED BLOOD COUNT 3.06 M/UL (4.20-5.40); RED CELL DISTRIBUTION WIDTH 22.5 % (11.6-14.8); WHITE BLOOD COUNT 8.9 K/UL (4.8-10.8)
[2018-07-31 07:47] LABS: ALANINE AMINOTRANSFERASE 16 U/L (12-78); ALBUMIN 2.5 G/DL (3.4-5.0); ALBUMIN/GLOBULIN RATIO 0.8 (1.0-2.7); ALKALINE PHOSPHATASE 85 U/L (46-116); ANION GAP 13 mmol/L (5-15); ASPARTATE AMINO TRANSFERASE 21 U/L (15-37); BILIRUBIN,TOTAL 0.6 MG/DL (0.2-1.0); BLOOD UREA NITROGEN 20 mg/dL (7-18); CALCIUM 8.5 MG/DL (8.5-10.1); CARBON DIOXIDE 22 MMOL/L (21-32); CHLORIDE 110 MMOL/L (98-107); CREATININE 0.8 MG/DL (0.55-1.30); POTASSIUM 4.6 MMOL/L (3.5-5.1); SODIUM 145 MMOL/L (136-145)
[2018-07-31 08:00] VITALS: BP 123/65
--- NOTE | 2018-07-31 08:00 | NUR ---
Report given by Brenna ROTH. Pt in for generalized weakness since 07/29/2018. Full code. Patient found stable sleeping. bed in lowest position, call lighht within reach, she is on room air. IV site on right forearm 22 gauge running Normal SAline at 55 mL/h. PAtient aler and oriented X 3.The patinet has bruising on her left arm which she attributes to IV insertions and one big bruise on the right flank side. she has billateral upper thigh sawyer which are about a year old. her gait is unsteady, she uses a cane but still needs assistance. she is on a soft chew diet.Waiting for her to have a bowel movement to collect.
[2018-07-31] MEDS: Amiodarone 200mg tab ORAL SCH ×2 (08:50→18:09)
[2018-07-31] MEDS: Digoxin 0.125mg tab ORAL SCH (08:52)
[2018-07-31] MEDS: Metoprolol Tartrate 50mg tab ORAL SCH ×2 (08:53→21:22)
--- NOTE | 2018-07-31 09:16 | Diagnostic Imaging Report ---
FILM CXR 1 VIEW: Persistent diffuse increased interstitial markings, not significantly changed compared to the prior exam. This may represent pulmonary edema versus an interstitial pneumonitis. No visible pleural effusion or pneumothorax. Cardiac pacer in the left chest wall with the lead tips in the right atrium and right ventricle regions. Mild cardiomegaly, unchanged.
--- NOTE | 2018-07-31 09:56 | NUR ---
RADIOLOGY DEPT.,CHEST X-RAY DONE.-P.DYE
--- NOTE | 2018-07-31 10:50 | NUR ---
Assisted patient to the restroom twice. she was able to walk with the cane.
--- NOTE | 2018-07-31 10:55 | NUR ---
P.T NOTE: LATE ENTRY 3502 P.T EVALUATION ATTEMPTED HOWEVER UNABLE TO PARTICIPATE DUE TO PAIN IN THE R RIB CAGE. PATIENT REQUESTED TO BE SEEN AFTER SHE GETS HER PAIN MEDICATION. RN NOTIFIED. WILL REATTEMPT.
--- NOTE | 2018-07-31 11:00 | NUR ---
P. T NOTE: P.T REATTEMPTED AFTER MORPHINE WAS GIVEN AT 0928 AM HOWEVER PATIENT DECLINE TO PARTICIPATE. STATED THAT SHE IS STILL FEELING SEVERE PAIN ON THE R RIB CAGE WITH MOVEMENT INITIATION. PATIENT WAS GIVEN ENCOURAGEMENT AND REASSURANCE .IRA AZEVEDO WAS PRESENT IN THE ROOM FOR ESTONIAN TRANSLATION AND ENCOURAGEMENT HOWEVER PATIENT CONSISTENT IN DECLINING TO PARTICIPATE. WILL REATTEMPT SCHEDULE PERMITS.
--- NOTE | 2018-07-31 11:23 | NUR ---
Nurse note: Larry oxygen saturation was at 85%, gave her 3 L of oxygen via nasal canula and Oxygen saturation went up to 94%
--- NOTE | 2018-07-31 11:31 | Pulmonology Progress Note ---
Assessment/Plan Problems: (1) Pulmonary edema (2) Acute encephalopathy (3) RUQ abdominal pain (4) COPD (chronic obstructive pulmonary disease) (5) Atrial fibrillation (6) CAD (coronary artery disease) (7) Pacemaker (8) KELVIN (obstructive sleep apnea) (9) Peripheral neuropathy Assessment/Plan cxr from today [place] [address] start lasix bid watch bun/creatinine titrate cardiac meds, still tachycardic symptomatic treatment check electrolytes check urine cultures dvt prophylaxis. Subjective ROS Limited/Unobtainable: No Interval Events: passed swallow study HEENT: Repors: no symptoms Allergies: Coded Allergies: No Known Allergies (Unverified , 04/24/18) Objective Last 24 Hour Vital Signs Date Time Temp Pulse Resp B/P (MAP) Pulse Ox O2 Delivery O2 Flow Rate FiO2 07/31/18 09:00 Room Air 07/31/18 08:53 54 123/65 07/31/18 08:52 54 07/31/18 08:00 62 07/31/18 08:00 98.3 54 18 123/65 (84) 98 07/31/18 04:00 98.5 58 20 122/65 (84) 96 07/31/18 04:00 54 07/31/18 00:00 94 07/31/18 00:00 98.7 103 18 132/86 (101) 98 07/30/18 21:43 113 140/99 07/30/18 21:00 Room Air 07/30/18 20:00 119 07/30/18 20:00 98.6 113 18 140/99 (113) 98 07/30/18 16:00 102 07/30/18 16:00 97.3 102 20 128/90 (103) 94 07/30/18 12:00 97.7 100 20 118/87 (97) 95 07/30/18 12:00 100 Intake and Output 07/30/18 07/31/18 18:59 06:59 Output Total 2 ml Balance -2 ml Output Urine Total 2 ml # Voids 6 # Bowel Movements 2 General Appearance: WD/WN HEENT: normocephalic, atraumatic Respiratory/Chest: lungs clear, normal breath sounds Breasts: no masses Cardiovascular: normal rate, no JVD Abdomen: soft, non tender Genitourinary: normal external genitalia Microbiology Date/Time Source Procedure Growth Status 07/29/18 04:00 Blood Blood Culture - Preliminary NO GROWTH AFTER 48 HOURS Resulted 07/29/18 04:00 Blood Blood Culture - Preliminary NO GROWTH AFTER 48 HOURS Resulted 07/29/18 04:04 Urine,Clean Catch Urine Culture - Preliminary Strep Species, Gamma-Hemolytic Resulted Laboratory Tests 07/31/18 05:43: White Blood Count 8.9, Red Blood Count 3.06L, Hemoglobin 8.9L, Hematocrit 28.0L , Mean Corpuscular Volume 92, Mean Corpuscular Hemoglobin 29.2, Mean Corpuscular Hemoglobin Concent 31.9L, Red Cell Distribution Width 22.5H, Platelet Count 182, Mean Platelet Volume 10.0, Neutrophils (%) (Auto) , Lymphocytes (%) (Auto) , Monocytes (%) (Auto) , Eosinophils (%) (Auto) , Basophils (%) (Auto) , Neutrophils % (Manual) [Pending], Lymphocytes % (Manual) [Pending], Platelet Estimate [Pending], Platelet Morphology [Pending], Sodium Level 145, Potassium Level 4.6, Chloride Level 110H, Carbon Dioxide Level 22, Anion Gap 13, Blood Urea Nitrogen 20H, Creatinine 0.8, Estimat Glomerular Filtration Rate , Glucose Level 86, Calcium Level 8.5, Total Bilirubin 0.6, Aspartate Amino Transf (AST/SGOT) 21, Alanine Aminotransferase (ALT/SGPT) 16, Alkaline Phosphatase 85, Pro-B-Type Natriuretic Peptide 28227R, Total Protein 5.8L, Albumin 2.5L, Globulin 3.3, Albumin/Globulin Ratio 0.8L Current Medications Medications (Trade) Dose Ordered Sig/Escobar Route PRN Reason Start Time Stop Time Status Last Admin Dose Admin Acetaminophen (Tylenol) 650 mg Q4H PRN ORAL T>100.5 07/29/18 11:00 08/28/18 06:59 07/30/18 00:22 Amiodarone HCl (Cordarone) 200 mg BID ORAL 07/29/18 18:00 08/28/18 17:59 07/31/18 08:50 Ceftriaxone Sodium 1 gm/ Dextrose 55 ml @ 110 mls/hr Q24H IVPB 07/30/18 04:00 08/06/18 03:59 07/31/18 04:05 Dextrose (Dextrose 50%) 25 ml Q30M PRN IV Hypoglycemia 07/29/18 10:45 08/28/18 07:03 Dextrose (Dextrose 50%) 50 ml Q30M PRN IV hypoglycemia 07/29/18 10:45 08/28/18 07:14 Digoxin (Lanoxin) 0.125 mg DAILY ORAL 07/30/18 09:00 08/29/18 08:59 07/30/18 08:49 Escitalopram Oxalate (Lexapro) 10 mg DAILY ORAL 07/30/18 09:00 08/28/18 08:59 07/31/18 08:49 Lorazepam (Ativan 2mg/ml 1ml) 0.5 mg Q4H PRN IV For Anxiety 07/29/18 11:00 08/05/18 06:59 Metoprolol Tartrate (Lopressor) 50 mg EVERY 12 HOURS ORAL 07/29/18 21:00 08/28/18 08:59 07/30/18 21:43 Morphine Sulfate (Morphine Sulfate) 1 mg Q4H PRN IVP PAIN 4-10 07/29/18 11:00 08/05/18 06:59 07/31/18 09:26 Ondansetron HCl (Zofran) 4 mg Q6H PRN IVP Nausea & Vomiting 07/29/18 11:00 08/28/18 10:59 Polyethylene Glycol (Miralax) 17 gm HSPRN PRN ORAL Constipation 07/29/18 21:00 08/28/18 20:59 Zolpidem Tartrate (Ambien) 5 mg HSPRN PRN ORAL Insomnia 07/29/18 21:00 08/05/18 20:59 Kelly Mejia MD Jul 31, 2018 11:31
--- NOTE | 2018-07-31 11:36 | NUR ---
ST NOTE: BEDSIDE SWALLOW EVAL RECEIVED BEDSIDE SWALLOW EVAL CHART REVIEWED PRIOR THE EVALUATION PT IS A 78-YEAR-OLD FEMALE WHO WAS ADMITTED DUE TO GENERALIZED WEAKNESS. PT HAS H/O CHRONIC A-FIB WITH PACEMAKER, HTN, OBSTRUCTIVE SLEEP APNEA, CHF, COPD. PER CXR: EITHER PNA OR PULMONARY EDEMA AND PACEMAKER. PLOF: PT LIVES AT HOME WITH FAMILY. CURRENT STATUS: PT SEEN AT BEDSIDE IN AM. ALERT, REQUIRED MAX CUES TO PARTICIPATE. 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 CALLED THE KITCHEN TO SEND WATER MELON AND THIN LIQUID. INITIAL IMPRESSION: UNABLE TO ASSESS PT ORALLY DUE TO PT REFUSED TO PARTICIPATE. PT STUCK OUT HER TONGUE ONLY, NO DEVIATION WAS NOTED. SLOW BUT FUNCTIONAL MASTICATION TIME, SLOW BUT FUNCTIONAL ORAL PREP AND OROPHARYNGEAL TRANSIT TIME, ADEQUATE LARYNGEAL ELEVATION, NO OVERT S/S OF ASPIRATION. OVERALL, PT'S SWALLOWING IS FUNCTIONAL. RECOMMENDATIONS: 1. CONTINUE SOFT, EASY CHEW WITH THIN LIQUID DIET. (SEND PT'S FOOD PREFERENCE) 2. GENERAL ASPIRATION PRECAUTIONS NO FURTHER SKILLED ST SERVICE AT THIS TIME. PLEASE REFER PT TO ST IF THERE IS CHANGE OF CONDITION. RNJUAN FRANCISCO, NOTIFIED.
[2018-07-31 12:00] VITALS: BP 131/72
--- NOTE | 2018-07-31 12:06 | NUR ---
RD ASSESSMENT & RECOMMENDATIONS SEE CARE ACTIVITY FOR COMPLETE ASSESSMENT DAILY ESTIMATED NEEDS: Needs based on Cardiac/ 61kg 25-30kcal/kg kcals/kg 3761-3627 total kcals 1-1.2 g protein/kg 61-73 g total protein Fluid per MD, on lasix NUTRITION DIAGNOSIS: Decreased sodium needs r/t cardiac history and clinical status as evidenced by pt w/ CHF, elev BNP (69478), on lasix. CURRENT DIET:Regular soft easy chew PO DIET RECOMMENDATIONS-->> Low Sodium/ Soft easy chew ADDITIONAL RECOMMENDATIONS: 1) Recalibrated bed scale wts for accurate CBW 2) Check lytes daily w/ lasix 3) Monitor oral intake, need for snacks or supplemental drinks. -> add snacks in b/w meals 4) Add B-complex daily
--- NOTE | 2018-07-31 14:45 | Cardiac Electrophysiology PN ---
Assessment/Plan Assessment/Plan 1. Atrial fibrillation with rapid ventricular response. On metoprolol 50 bid, amiodarone 200 mg b.i.d. and digoxin. Off Pradaxa for pacer generator change 2. Status post [employer] pacemaker. Interrogated the pacemaker that showed pacer reached EOL 04/10/18. Not pacer dependent. Scheduled for battery change Saturday at 1 3. Hypertension. Continue metoprolol 50 mg b.i.d. 4. Polycythemia vera. The patient is on hydroxyurea. 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 Subjective Subjective Pacer interrogated and showed it has reached End of life since 02/2018. Remained in SR Objective Last 24 Hour Vital Signs Date Time Temp Pulse Resp B/P (MAP) Pulse Ox O2 Delivery O2 Flow Rate FiO2 07/31/18 12:00 98.4 64 20 131/72 (91) 93 07/31/18 12:00 65 07/31/18 09:00 Room Air 07/31/18 08:53 54 123/65 07/31/18 08:52 54 07/31/18 08:00 62 07/31/18 08:00 98.3 54 18 123/65 (84) 98 07/31/18 04:00 98.5 58 20 122/65 (84) 96 07/31/18 04:00 54 07/31/18 00:00 94 07/31/18 00:00 98.7 103 18 132/86 (101) 98 07/30/18 21:43 113 140/99 07/30/18 21:00 Room Air 07/30/18 20:00 119 07/30/18 20:00 98.6 113 18 140/99 (113) 98 07/30/18 16:00 102 07/30/18 16:00 97.3 102 20 128/90 (103) 94 Intake and Output 07/30/18 07/31/18 18:59 06:59 Output Total 2 ml Balance -2 ml Output Urine Total 2 ml # Voids 6 # Bowel Movements 2 Laboratory Tests Test 07/31/18 05:43 White Blood Count 8.9 K/UL (4.8-10.8) Red Blood Count 3.06 M/UL (4.20-5.40) L Hemoglobin 8.9 G/DL (12.0-16.0) L Hematocrit 28.0 % (37.0-47.0) L Mean Corpuscular Volume 92 FL (80-99) Mean Corpuscular Hemoglobin 29.2 PG (27.0-31.0) Mean Corpuscular Hemoglobin Concent 31.9 G/DL (32.0-36.0) L Red Cell Distribution Width 22.5 % (11.6-14.8) H Platelet Count 182 K/UL (150-450) Mean Platelet Volume 10.0 FL (6.5-10.1) Neutrophils (%) (Auto) % (45.0-75.0) Lymphocytes (%) (Auto) % (20.0-45.0) Monocytes (%) (Auto) % (1.0-10.0) Eosinophils (%) (Auto) % (0.0-3.0) Basophils (%) (Auto) % (0.0-2.0) Differential Total Cells Counted 100 Neutrophils % (Manual) 91 % (45-75) H Lymphocytes % (Manual) 8 % (20-45) L Monocytes % (Manual) 1 % (1-10) Eosinophils % (Manual) 0 % (0-3) Basophils % (Manual) 0 % (0-2) Band Neutrophils 0 % (0-8) Nucleated Red Blood Cells 2 /100 WBC Platelet Estimate Adequate Platelet Morphology Normal Hypochromasia 2+ Anisocytosis 3+ Sodium Level 145 MMOL/L (136-145) Potassium Level 4.6 MMOL/L (3.5-5.1) Chloride Level 110 MMOL/L (98-107) H Carbon Dioxide Level 22 MMOL/L (21-32) Anion Gap 13 mmol/L (5-15) Blood Urea Nitrogen 20 mg/dL (7-18) H Creatinine 0.8 MG/DL (0.55-1.30) Estimat Glomerular Filtration Rate mL/min (>60) Glucose Level 86 MG/DL (74-106) Calcium Level 8.5 MG/DL (8.5-10.1) Total Bilirubin 0.6 MG/DL (0.2-1.0) Aspartate Amino Transf (AST/SGOT) 21 U/L (15-37) Alanine Aminotransferase (ALT/SGPT) 16 U/L (12-78) Alkaline Phosphatase 85 U/L (46-116) Pro-B-Type Natriuretic Peptide 68655 pg/mL (0-125) H Total Protein 5.8 G/DL (6.4-8.2) L Albumin 2.5 G/DL (3.4-5.0) L Globulin 3.3 g/dL Albumin/Globulin Ratio 0.8 (1.0-2.7) L Microbiology Date/Time Source Procedure Growth Status 07/29/18 04:00 Blood Blood Culture - Preliminary NO GROWTH AFTER 48 HOURS Resulted 07/29/18 04:00 Blood Blood Culture - Preliminary NO GROWTH AFTER 48 HOURS Resulted 07/29/18 04:04 Urine,Clean Catch Urine Culture - Preliminary Strep Species, Gamma-Hemolytic Resulted Objective HEAD AND NECK: Mild JVD. LUNGS: Decreased breath sounds. CARDIOVASCULAR: Irregularly irregular. S1 and S2 with no gallop or murmur and tachycardic. Pacemaker left subclavian. ABDOMEN: Soft. EXTREMITIES: No pitting edema. River Freitas MD Jul 31, 2018 14:45
[2018-07-31 16:00] VITALS: BP 139/75
[2018-07-31] MEDS ORDERED: MIRTAZAPINE15 M3 ORAL (18:17)
[2018-07-31] MEDS ORDERED: METOPROLOL TART50 MG ORAL (18:17)
[2018-07-31] MEDS ORDERED: OMEPRAZOLE20 M2 ORAL (18:17)
[2018-07-31] MEDS ORDERED: GABAPENTIN400 MG ORAL (18:30)
--- NOTE | 2018-07-31 18:30 | Internal Med Progress Note ---
Subjective Date of Service: Jul 31, 2018 Physician Name Roshan Edwards Attending Physician Antonio Adrian MD Current Medications Medications (Trade) Dose Ordered Sig/Escobar Route PRN Reason Start Time Stop Time Status Last Admin Dose Admin Acetaminophen (Tylenol) 650 mg Q4H PRN ORAL T>100.5 07/29/18 11:00 08/28/18 06:59 07/30/18 00:22 Amiodarone HCl (Cordarone) 200 mg BID ORAL 07/29/18 18:00 08/28/18 17:59 07/31/18 18:09 Ceftriaxone Sodium 1 gm/ Dextrose 55 ml @ 110 mls/hr Q24H IVPB 07/30/18 04:00 08/06/18 03:59 07/31/18 04:05 Dextrose (Dextrose 50%) 25 ml Q30M PRN IV Hypoglycemia 07/29/18 10:45 08/28/18 07:03 Dextrose (Dextrose 50%) 50 ml Q30M PRN IV hypoglycemia 07/29/18 10:45 08/28/18 07:14 Digoxin (Lanoxin) 0.125 mg DAILY ORAL 07/30/18 09:00 08/29/18 08:59 07/30/18 08:49 Escitalopram Oxalate (Lexapro) 10 mg DAILY ORAL 07/30/18 09:00 08/28/18 08:59 07/31/18 08:49 Furosemide (Lasix) 20 mg Q12H IV 07/31/18 12:00 08/30/18 11:59 07/31/18 12:42 Lorazepam (Ativan 2mg/ml 1ml) 0.5 mg Q4H PRN IV For Anxiety 07/29/18 11:00 08/05/18 06:59 Metoprolol Tartrate (Lopressor) 50 mg EVERY 12 HOURS ORAL 07/29/18 21:00 08/28/18 08:59 07/30/18 21:43 Morphine Sulfate (Morphine Sulfate) 1 mg Q4H PRN IVP PAIN 4-10 07/29/18 11:00 08/05/18 06:59 07/31/18 09:26 Ondansetron HCl (Zofran) 4 mg Q6H PRN IVP Nausea & Vomiting 07/29/18 11:00 08/28/18 10:59 Polyethylene Glycol (Miralax) 17 gm HSPRN PRN ORAL Constipation 07/29/18 21:00 08/28/18 20:59 Zolpidem Tartrate (Ambien) 5 mg HSPRN PRN ORAL Insomnia 07/29/18 21:00 08/05/18 20:59 Allergies: Coded Allergies: No Known Allergies (Unverified , 04/24/18) Subjective 78 YO F admitted with fever and vertigo. Now pneumonia. Cover for Int Med-Dr Adrian Objective Last Vital Signs Date Time Temp Pulse Resp B/P (MAP) Pulse Ox O2 Delivery O2 Flow Rate FiO2 07/31/18 16:00 65 07/31/18 16:00 98.0 18 139/75 (96) 97 07/31/18 09:00 Room Air 07/30/18 09:00 2.0 Laboratory Tests Test 07/31/18 05:43 White Blood Count 8.9 K/UL (4.8-10.8) Red Blood Count 3.06 M/UL (4.20-5.40) L Hemoglobin 8.9 G/DL (12.0-16.0) L Hematocrit 28.0 % (37.0-47.0) L Mean Corpuscular Volume 92 FL (80-99) Mean Corpuscular Hemoglobin 29.2 PG (27.0-31.0) Mean Corpuscular Hemoglobin Concent 31.9 G/DL (32.0-36.0) L Red Cell Distribution Width 22.5 % (11.6-14.8) H Platelet Count 182 K/UL (150-450) Mean Platelet Volume 10.0 FL (6.5-10.1) Neutrophils (%) (Auto) % (45.0-75.0) Lymphocytes (%) (Auto) % (20.0-45.0) Monocytes (%) (Auto) % (1.0-10.0) Eosinophils (%) (Auto) % (0.0-3.0) Basophils (%) (Auto) % (0.0-2.0) Differential Total Cells Counted 100 Neutrophils % (Manual) 91 % (45-75) H Lymphocytes % (Manual) 8 % (20-45) L Monocytes % (Manual) 1 % (1-10) Eosinophils % (Manual) 0 % (0-3) Basophils % (Manual) 0 % (0-2) Band Neutrophils 0 % (0-8) Nucleated Red Blood Cells 2 /100 WBC Platelet Estimate Adequate Platelet Morphology Normal Hypochromasia 2+ Anisocytosis 3+ Sodium Level 145 MMOL/L (136-145) Potassium Level 4.6 MMOL/L (3.5-5.1) Chloride Level 110 MMOL/L (98-107) H Carbon Dioxide Level 22 MMOL/L (21-32) Anion Gap 13 mmol/L (5-15) Blood Urea Nitrogen 20 mg/dL (7-18) H Creatinine 0.8 MG/DL (0.55-1.30) Estimat Glomerular Filtration Rate mL/min (>60) Glucose Level 86 MG/DL (74-106) Calcium Level 8.5 MG/DL (8.5-10.1) Total Bilirubin 0.6 MG/DL (0.2-1.0) Aspartate Amino Transf (AST/SGOT) 21 U/L (15-37) Alanine Aminotransferase (ALT/SGPT) 16 U/L (12-78) Alkaline Phosphatase 85 U/L (46-116) Pro-B-Type Natriuretic Peptide 11842 pg/mL (0-125) H Total Protein 5.8 G/DL (6.4-8.2) L Albumin 2.5 G/DL (3.4-5.0) L Globulin 3.3 g/dL Albumin/Globulin Ratio 0.8 (1.0-2.7) L Microbiology Date/Time Source Procedure Growth Status 07/29/18 04:00 Blood Blood Culture - Preliminary NO GROWTH AFTER 48 HOURS Resulted 07/29/18 04:00 Blood Blood Culture - Preliminary NO GROWTH AFTER 48 HOURS Resulted 07/29/18 04:04 Urine,Clean Catch Urine Culture - Preliminary Strep Species, Gamma-Hemolytic Resulted Intake and Output 07/30/18 07/31/18 18:59 06:59 Output Total 2 ml Balance -2 ml Output Urine Total 2 ml # Voids 6 # Bowel Movements 2 Objective PHYSICAL EXAMINATION: GENERAL: The patient is a well-developed and well-nourished female, in no apparent distress. HEENT: Eyes, pupils are equal and responsive to light and accommodation. Extraocular movements are intact. NECK: Supple without lymphadenopathy. CHEST: Lungs are clear to auscultation bilaterally without wheezes or rales. CARDIOVASCULAR: Regular rhythm and rate. S1, S2 normal without murmurs, rubs, or gallops. ABDOMEN: Soft, nontender, nondistended. Positive bowel sounds. No evidence of hepatosplenomegaly. Currently, no rebound or guarding noted. EXTREMITIES: Negative for clubbing, cyanosis, edema. RECTAL/GENITAL: Not performed. NEUROLOGIC: Cranial nerves II through XII are grossly intact without focal deficits. Motor strength is 5/5 bilaterally. Deep tendon reflexes are 2+ plantar. Assessment/Plan Assessment/Plan ASSESSMENT: This is an 78-year-old female. 1. Fever. 2. Vertigo. 3. Atrial fibrillation with rapid ventricular rate. 4. Polycythemia vera. 5. Hypertension. 6. Obstructive sleep apnea. 7. Coronary artery disease. 8. Hypercholesteremia. 9. Congestive heart failure. TREATMENT: 1. Atrial fibrillation/coronary artery disease/congestive heart failure. Cardiology consultation has been obtained with Dr. River Freitas. Serial troponin levels will be performed. BNP is pending. An echocardiogram is pending. The patient has been started on digoxin for rapid ventricular rate. 2. Polycythemia vera. Continue hydroxyurea as above. 3. Hypertension. Continue clonidine as above. 4. Obstructive sleep apnea. 5. Hypercholesterolemia. 6. History of congestive heart failure. 7. Pneumonia/fever A pulmonary consultation has been obtained with Dr Mejia. Continue empiric ceftriaxone Roshan Edwards MD Jul 31, 2018 18:30
[2018-07-31] MEDS ORDERED: BENADRYL25 MG ORAL (18:33)
--- NOTE | 2018-07-31 19:05 | Cardiology Report ---
APPROVED REPORT EXAM: Two-dimensional and M-mode echocardiogram with Doppler and color Doppler. INDICATION Atrial Flutter M-Mode DIMENSIONS IVSd1.4 (0.7-1.1cm)Left Atrium (MM)4.9 (1.6-4.0cm) LVDd4.3 (3.5-5.6cm)Aortic Root3.0 (2.0-3.7cm) PWd1.2 (0.7-1.1cm)Aortic Cusp Exc.2.0 (1.5-2.0cm) LVDs2.7 (2.5-4.0cm) PWs1.6 cm Normal left ventricular chamber size, systolic function and wall motion. Left ventricular ejection fraction estimated to be 65 %. Moderate left ventricular hypertrophy by 2-D. No evidence of pericardial effusion. Mild left atrial enlargement. Moderate right atrial enlargement. Mild right ventricular enlargement. Focal aortic valve sclerosis with adequate cusp excursion. Thickened mitral valve leaflets with normal excursion. Mitral annulus and aortic root calcification. Pulmonic valve not well visualized. Normal tricuspid valve structure. IVC dilated at 2.5 cm with slight physiologic collapse suggestive of increased RA pressure. Pacemaker wire present in the right side chambers. A color flow and spectral Doppler study was performed and revealed: Mild mitral regurgitation. Can not determine left ventricular diastolic function by mitral diastolic velocities due to atrial fibrillation. Moderate to severe tricuspid regurgitation. Tricuspid systolic velocities suggests peak right ventricular systolic pressure of 61 mmHg, consistent with severe pulmonary hypertension.
--- NOTE | 2018-07-31 19:15 | NUR ---
NURSE NOTES: Report received from Skyla student nurse and Cameron Klein RN. Pt is resting in bed in stable condition. Pt is AOx2-3 with some confusion noted. Pt is on room air and breathing is even and unlabored. No acute distress noted. IV site is R FA #[id number] and is asymptomatic, patent, and intact. Bed is in lowest position with brake engaged, side rails up x3, and bed alarm on. Call light and side table placed within reach. Will continue to monitor.
--- NOTE | 2018-07-31 19:17 | Cardiology Report ---
APPROVED REPORT EKG Measurement Heart [id number] Normal sinus rhythm Left axis deviation Anteroseptal infarct, age undetermined Abnormal ECG
[2018-07-31 19:43] LABS: ANION GAP 8 mmol/L (5-15); BLOOD UREA NITROGEN 19 mg/dL (7-18); CALCIUM 8.8 MG/DL (8.5-10.1); CARBON DIOXIDE 26 MMOL/L (21-32); CHLORIDE 105 MMOL/L (98-107); CREATININE 0.9 MG/DL (0.55-1.30); POTASSIUM 3.6 MMOL/L (3.5-5.1); SODIUM 139 MMOL/L (136-145)
[2018-07-31 20:00] VITALS: BP 141/71
--- NOTE | 2018-07-31 20:01 | NUR ---
HAND-OFF: Report given to rula Coronel.
[2018-08-01] VITALS: BP 141/80
[2018-08-01] MEDS: Morphine Sulfate 2mg/ml Inj(IV/IM USE ONLY) IVP PRN (01:59)
--- NOTE | 2018-08-01 03:26 | NUR ---
NURSE NOTES: Pt converted to afib with RVR with a heart rate ranging between 110 - 130. Message left for MD Freitas to notify. Pt is resting in bed in stable condition. Awaiting call back for further instructions. Will continue to monitor.
[2018-08-01 04:00] VITALS: BP 133/92
--- NOTE | 2018-08-01 04:41 | NUR ---
NURSE NOTES: 2nd message left for MD Freitas regarding pt conversion from sinus rhythm to afib with RVR, heart rate b/w 110 - 130. Pt resting in bed in stable condition. No acute distress noted. Will continue to monitor patient. Awaiting call back for further instructions.
--- NOTE | 2018-08-01 04:47 | NUR ---
NURSE NOTES: MD Freitas return call and notified of pt change in heart rate and rhythm. Per MD Freitas, place order for Digoxin 0.25mg IVP x1. Orders noted and carried out. CN aware.
[2018-08-01] MEDS: cefTRIAXone 1 GM in D5W 55 ML IVPB SCH (04:50)
[2018-08-01] MEDS ORDERED: Digoxin 0.5mg/2ml Inj IVP ONE (05:00)
[2018-08-01 06:43] LABS: HEMATOCRIT 30.4 % (37.0-47.0); HEMOGLOBIN 9.8 G/DL (12.0-16.0); MEAN CORPUSCULAR VOLUME 90 FL (80-99); PLATELET COUNT 215 K/UL (150-450); RED BLOOD COUNT 3.37 M/UL (4.20-5.40); WHITE BLOOD COUNT 9.5 K/UL (4.8-10.8)
--- NOTE | 2018-08-01 07:00 | NUR ---
NURSE NOTES: Report received from Brenna ROTH. Patient is observed in bed, eating breakfast, awake, alert, oriented with periods of confusion. Respiratory even and unlabored. Patient denies pain at this time. IV site is asymptomatic, patent, and intact. Bed is in lowest position with side rails up x2 and brakes are engaged. Bed alarm is on. Encouraged patient to use call light when in need of assistance; pt verbalized understanding.
--- NOTE | 2018-08-01 07:26 | NUR ---
HAND-OFF: Report given to Sami Borges RN. Pt is resting in bed in stable condition. No acute distress noted. Endorsed plan of care.
[2018-08-01 08:00] VITALS: BP 131/83
[2018-08-01] MEDS: Digoxin 0.125mg tab ORAL SCH (08:34)
[2018-08-01] MEDS: Metoprolol Tartrate 50mg tab ORAL SCH ×2 (08:34→20:19)
[2018-08-01] MEDS: Amiodarone 200mg tab ORAL SCH ×2 (08:34→17:55)
--- NOTE | 2018-08-01 09:09 | Cardiac Electrophysiology PN ---
Assessment/Plan Assessment/Plan 1. Atrial fibrillation with rapid ventricular response. On metoprolol 50 bid, amiodarone 200 mg b.i.d. and digoxin. Off Pradaxa for pacer generator change Dig level was 0.7 on 07/30. Got an extra 0.25 iv dig yesterday. Will check Dig level in am. 2. Status post [employer] pacemaker. Interrogation showed pacer reached EOL 04/10/18. Not pacer dependent. Scheduled for battery change Saturday at 1 3. Hypertension and diastolic dysfunction with BNP>68370 and EF 65%. Continue metoprolol 50 mg b.i.d.and Lasix 20 iv bid 4. Polycythemia vera. The patient is on hydroxyurea. 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 RILEY RN Subjective Subjective Developed atrial fib with RVR last night and I gave additional iv Digoxin. Pacer interrogation showed it has reached End of life since 02/2018. Objective Last 24 Hour Vital Signs Date Time Temp Pulse Resp B/P (MAP) Pulse Ox O2 Delivery O2 Flow Rate FiO2 08/01/18 08:34 110 08/01/18 08:34 110 131/83 08/01/18 08:00 98.4 103 18 131/83 (99) 96 08/01/18 07:47 Room Air 08/01/18 05:00 122 08/01/18 05:00 122 08/01/18 04:00 98.5 122 18 133/92 (106) 96 08/01/18 04:00 113 08/01/18 02:03 110 08/01/18 02:02 77 08/01/18 00:00 98.3 74 16 141/80 (100) 95 08/01/18 00:00 72 07/31/18 21:22 75 141/71 07/31/18 21:00 Room Air 07/31/18 20:00 73 07/31/18 20:00 98.8 74 18 141/71 (94) 96 07/31/18 16:00 65 07/31/18 16:00 98.0 67 18 139/75 (96) 97 07/31/18 12:00 98.4 64 20 131/72 (91) 93 07/31/18 12:00 65 Intake and Output 07/31/18 08/01/18 19:00 07:00 Intake Total 280 ml 240 ml Balance 280 ml 240 ml Intake Oral 280 ml 240 ml # Voids 3 4 Laboratory Tests Test 07/31/18 18:55 08/01/18 05:28 Sodium Level 139 MMOL/L (136-145) Potassium Level 3.6 MMOL/L (3.5-5.1) Chloride Level 105 MMOL/L (98-107) Carbon Dioxide Level 26 MMOL/L (21-32) Anion Gap 8 mmol/L (5-15) Blood Urea Nitrogen 19 mg/dL (7-18) H Creatinine 0.9 MG/DL (0.55-1.30) Estimat Glomerular Filtration Rate mL/min (>60) Glucose Level 138 MG/DL (74-106) H Calcium Level 8.8 MG/DL (8.5-10.1) White Blood Count 9.5 K/UL (4.8-10.8) Red Blood Count 3.37 M/UL (4.20-5.40) L Hemoglobin 9.8 G/DL (12.0-16.0) L Hematocrit 30.4 % (37.0-47.0) L Mean Corpuscular Volume 90 FL (80-99) Mean Corpuscular Hemoglobin 29.0 PG (27.0-31.0) Mean Corpuscular Hemoglobin Concent 32.2 G/DL (32.0-36.0) Red Cell Distribution Width 22.0 % (11.6-14.8) H Platelet Count 215 K/UL (150-450) Mean Platelet Volume 9.2 FL (6.5-10.1) Neutrophils (%) (Auto) % (45.0-75.0) Lymphocytes (%) (Auto) % (20.0-45.0) Monocytes (%) (Auto) % (1.0-10.0) Eosinophils (%) (Auto) % (0.0-3.0) Basophils (%) (Auto) % (0.0-2.0) Neutrophils % (Manual) Pending Lymphocytes % (Manual) Pending Platelet Estimate Pending Platelet Morphology Pending Objective HEAD AND NECK: Mild JVD. LUNGS: Decreased breath sounds. CARDIOVASCULAR: Irregularly irregular S1 and S2 with no gallop or murmur Pacemaker left subclavian. ABDOMEN: Soft. EXTREMITIES: No pitting edema. River Freitas MD Aug 01, 2018 09:09
--- NOTE | 2018-08-01 09:50 | NUR ---
NURSE NOTES: Notified Dr. Freitas regarding patient's digoxin level of >5.0, per MD repeat dig level at 1200 and tomorrow 0400. Hold digoxin.
--- NOTE | 2018-08-01 10:35 | NUR ---
P.T Note: P.T evaluation reattempted. Spoke with RN Neema for pain medication prior to seeing pt for P.T evaluation however patient refused to participate despite educating pt. re : benefits of P.T and possible complications of prolonged bedrest/ immobility. Will reattempt as schedule permits.
--- NOTE | 2018-08-01 11:49 | Diagnostic Imaging Report ---
Indications: Status post fall with right-sided head swelling Technique: Spiral acquisitions obtained through the brain. Angled axial and coronal 5 x 5 mm slices were reconstructed. Total dose length product 1354.84 mGycm. CTDI vol(s) 70.38 mGy. Dose reduction achieved using automated exposure control Comparison: 02/05/2018 Findings: There is right temporal region scalp contusion/hematoma now present. No acute intracranial hemorrhage or edema, mass effect, nor midline shift. There is age-related enlargement of the ventricles and extra axial CSF spaces. There is periventricular deep white matter low-attenuation, consistent with chronic microvascular ischemic changes. 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 Intact calvarium. There is minimal mastoid disease bilaterally. Visualized orbits and sinuses are unremarkable. Impression: Evidence of right temporal region scalp soft tissue contusion. Chronic and age-related changes Negative for acute intracranial bleed or mass effect The CT scanner at [facility] is accredited by the [employer] and the scans are performed using protocols designed to limit radiation exposure to as low as reasonably achievable to attain images of sufficient resolution adequate for diagnostic evaluation.
--- NOTE | 2018-08-01 11:56 | Pulmonology Progress Note ---
Assessment/Plan Problems: (1) Pulmonary edema (2) Acute encephalopathy (3) RUQ abdominal pain (4) COPD (chronic obstructive pulmonary disease) (5) Atrial fibrillation (6) CAD (coronary artery disease) (7) Pacemaker (8) KELVIN (obstructive sleep apnea) (9) Peripheral neuropathy Assessment/Plan cxr from [place] [address] start lasix bid, pt incontinent, difficult to measure output watch bun/creatinine titrate cardiac meds, still tachycardic symptomatic treatment check electrolytes check urine cultures dvt prophylaxis. Subjective ROS Limited/Unobtainable: No Constitutional: Reports: no symptoms HEENT: Repors: no symptoms Allergies: Coded Allergies: No Known Allergies (Unverified , 04/24/18) Objective Last 24 Hour Vital Signs Date Time Temp Pulse Resp B/P (MAP) Pulse Ox O2 Delivery O2 Flow Rate FiO2 08/01/18 08:34 110 08/01/18 08:34 110 131/83 08/01/18 08:00 98.4 103 18 131/83 (99) 96 08/01/18 07:47 Room Air 08/01/18 07:37 99 08/01/18 05:00 122 08/01/18 05:00 122 08/01/18 04:00 98.5 122 18 133/92 (106) 96 08/01/18 04:00 113 08/01/18 02:03 110 08/01/18 02:02 77 08/01/18 00:00 98.3 74 16 141/80 (100) 95 08/01/18 00:00 72 07/31/18 21:22 75 141/71 07/31/18 21:00 Room Air 07/31/18 20:00 73 07/31/18 20:00 98.8 74 18 141/71 (94) 96 07/31/18 16:00 65 07/31/18 16:00 98.0 67 18 139/75 (96) 97 07/31/18 12:00 98.4 64 20 131/72 (91) 93 07/31/18 12:00 65 Intake and Output 07/31/18 08/01/18 19:00 07:00 Intake Total 280 ml 240 ml Balance 280 ml 240 ml Intake Oral 280 ml 240 ml # Voids 3 4 General Appearance: WD/WN HEENT: normocephalic, atraumatic Respiratory/Chest: chest wall non-tender, lungs clear Cardiovascular: normal peripheral pulses, normal rate, regular rhythm Abdomen: normal bowel sounds Genitourinary: normal external genitalia Extremities: no clubbing Neurologic/Psychiatric: attending psychiatrist II-XII grossly normal Laboratory Tests 07/31/18 18:55: Sodium Level 139, Potassium Level 3.6, Chloride Level 105, Carbon Dioxide Level 26, Anion Gap 8, Blood Urea Nitrogen 19H, Creatinine 0.9, Estimat Glomerular Filtration Rate , Glucose Level 138H, Calcium Level 8.8 08/01/18 05:28: White Blood Count 9.5, Red Blood Count 3.37L, Hemoglobin 9.8L, Hematocrit 30.4L , Mean Corpuscular Volume 90, Mean Corpuscular Hemoglobin 29.0, Mean Corpuscular Hemoglobin Concent 32.2, Red Cell Distribution Width 22.0H, Platelet Count 215, Mean Platelet Volume 9.2, Neutrophils (%) (Auto) , Lymphocytes (%) (Auto) , Monocytes (%) (Auto) , Eosinophils (%) (Auto) , Basophils (%) (Auto) , Differential Total Cells Counted 100, Neutrophils % ( Manual) 86H, Lymphocytes % (Manual) 6L, Monocytes % (Manual) 2, Eosinophils % ( Manual) 0, Basophils % (Manual) 0, Band Neutrophils 6, Platelet Estimate Adequate, Platelet Morphology , Giant Platelets Occasional, Polychromasia 1+, Anisocytosis 3+, Tear Drop Cells Occasional, Ovalocytes 1+, Digoxin Level > 5.0* H 08/01/18 11:45: Digoxin Level [Pending] Current Medications Medications (Trade) Dose Ordered Sig/Escobar Route PRN Reason Start Time Stop Time Status Last Admin Dose Admin Acetaminophen (Tylenol) 650 mg Q4H PRN ORAL T>100.5 07/29/18 11:00 08/28/18 06:59 07/30/18 00:22 Amiodarone HCl (Cordarone) 200 mg BID ORAL 07/29/18 18:00 08/28/18 17:59 08/01/18 08:34 Ceftriaxone Sodium 1 gm/ Dextrose 55 ml @ 110 mls/hr Q24H IVPB 07/30/18 04:00 08/06/18 03:59 08/01/18 04:50 Dextrose (Dextrose 50%) 25 ml Q30M PRN IV Hypoglycemia 07/29/18 10:45 08/28/18 07:03 Dextrose (Dextrose 50%) 50 ml Q30M PRN IV hypoglycemia 07/29/18 10:45 08/28/18 07:14 Digoxin (Lanoxin) 0.125 mg DAILY ORAL 07/30/18 09:00 08/29/18 08:59 08/01/18 08:34 Escitalopram Oxalate (Lexapro) 10 mg DAILY ORAL 07/30/18 09:00 08/28/18 08:59 08/01/18 08:34 Furosemide (Lasix) 20 mg Q12H IV 07/31/18 12:00 08/30/18 11:59 08/01/18 01:13 Lorazepam (Ativan 2mg/ml 1ml) 0.5 mg Q4H PRN IV For Anxiety 07/29/18 11:00 08/05/18 06:59 Metoprolol Tartrate (Lopressor) 50 mg EVERY 12 HOURS ORAL 07/29/18 21:00 08/28/18 08:59 08/01/18 08:34 Morphine Sulfate (Morphine Sulfate) 1 mg Q4H PRN IVP PAIN 4-10 07/29/18 11:00 08/05/18 06:59 08/01/18 01:59 Ondansetron HCl (Zofran) 4 mg Q6H PRN IVP Nausea & Vomiting 07/29/18 11:00 08/28/18 10:59 Polyethylene Glycol (Miralax) 17 gm HSPRN PRN ORAL Constipation 07/29/18 21:00 08/28/18 20:59 Zolpidem Tartrate (Ambien) 5 mg HSPRN PRN ORAL Insomnia 07/29/18 21:00 08/05/18 20:59 Kelly Mejia MD Aug 01, 2018 11:56
[2018-08-01 12:00] VITALS: BP 120/80
--- NOTE | 2018-08-01 12:28 | NUR ---
NURSE NOTES: Made Dr. Freitas know regarding patient's repeat digoxin level. No new orders noted.
--- NOTE | 2018-08-01 12:43 | NUR ---
CASE MANAGEMENT:REVIEW 08/01/18 SI: AFIB W/RVR. COPD. 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
--- NOTE | 2018-08-01 13:48 | Internal Med Progress Note ---
Subjective Physician Name Antonio Adrian Attending Physician Antonio Adrian MD Current Medications Medications (Trade) Dose Ordered Sig/Escobar Route PRN Reason Start Time Stop Time Status Last Admin Dose Admin Acetaminophen (Tylenol) 650 mg Q4H PRN ORAL T>100.5 07/29/18 11:00 08/28/18 06:59 07/30/18 00:22 Amiodarone HCl (Cordarone) 200 mg BID ORAL 07/29/18 18:00 08/28/18 17:59 08/01/18 08:34 Ceftriaxone Sodium 1 gm/ Dextrose 55 ml @ 110 mls/hr Q24H IVPB 07/30/18 04:00 08/06/18 03:59 08/01/18 04:50 Dextrose (Dextrose 50%) 25 ml Q30M PRN IV Hypoglycemia 07/29/18 10:45 08/28/18 07:03 Dextrose (Dextrose 50%) 50 ml Q30M PRN IV hypoglycemia 07/29/18 10:45 08/28/18 07:14 Digoxin (Lanoxin) 0.125 mg DAILY ORAL 07/30/18 09:00 08/29/18 08:59 08/01/18 08:34 Escitalopram Oxalate (Lexapro) 10 mg DAILY ORAL 07/30/18 09:00 08/28/18 08:59 08/01/18 08:34 Furosemide (Lasix) 20 mg Q12HR@0600,1800 IV 08/01/18 18:00 08/31/18 17:59 Lorazepam (Ativan 2mg/ml 1ml) 0.5 mg Q4H PRN IV For Anxiety 07/29/18 11:00 08/05/18 06:59 Metoprolol Tartrate (Lopressor) 50 mg EVERY 12 HOURS ORAL 07/29/18 21:00 08/28/18 08:59 08/01/18 08:34 Morphine Sulfate (Morphine Sulfate) 1 mg Q4H PRN IVP PAIN 4-10 07/29/18 11:00 08/05/18 06:59 08/01/18 01:59 Ondansetron HCl (Zofran) 4 mg Q6H PRN IVP Nausea & Vomiting 07/29/18 11:00 08/28/18 10:59 Polyethylene Glycol (Miralax) 17 gm HSPRN PRN ORAL Constipation 07/29/18 21:00 08/28/18 20:59 Zolpidem Tartrate (Ambien) 5 mg HSPRN PRN ORAL Insomnia 07/29/18 21:00 08/05/18 20:59 Allergies: Coded Allergies: No Known Allergies (Unverified , 04/24/18) Subjective awake, alert, responsive, no chest pain or SOB, + tachycardia C/O weakness, poor appetite, Wt. loss and abdominal pain. Objective Last Vital Signs Date Time Temp Pulse Resp B/P (MAP) Pulse Ox O2 Delivery O2 Flow Rate FiO2 08/01/18 12:10 87 08/01/18 12:00 98.0 18 120/80 (93) 96 08/01/18 07:47 Room Air 07/30/18 09:00 2.0 Laboratory Tests Test 07/31/18 18:55 08/01/18 05:28 08/01/18 11:45 Sodium Level 139 MMOL/L (136-145) Potassium Level 3.6 MMOL/L (3.5-5.1) Chloride Level 105 MMOL/L (98-107) Carbon Dioxide Level 26 MMOL/L (21-32) Anion Gap 8 mmol/L (5-15) Blood Urea Nitrogen 19 mg/dL (7-18) H Creatinine 0.9 MG/DL (0.55-1.30) Estimat Glomerular Filtration Rate mL/min (>60) Glucose Level 138 MG/DL (74-106) H Calcium Level 8.8 MG/DL (8.5-10.1) White Blood Count 9.5 K/UL (4.8-10.8) Red Blood Count 3.37 M/UL (4.20-5.40) L Hemoglobin 9.8 G/DL (12.0-16.0) L Hematocrit 30.4 % (37.0-47.0) L Mean Corpuscular Volume 90 FL (80-99) Mean Corpuscular Hemoglobin 29.0 PG (27.0-31.0) Mean Corpuscular Hemoglobin Concent 32.2 G/DL (32.0-36.0) Red Cell Distribution Width 22.0 % (11.6-14.8) H Platelet Count 215 K/UL (150-450) Mean Platelet Volume 9.2 FL (6.5-10.1) Neutrophils (%) (Auto) % (45.0-75.0) Lymphocytes (%) (Auto) % (20.0-45.0) Monocytes (%) (Auto) % (1.0-10.0) Eosinophils (%) (Auto) % (0.0-3.0) Basophils (%) (Auto) % (0.0-2.0) Differential Total Cells Counted 100 Neutrophils % (Manual) 86 % (45-75) H Lymphocytes % (Manual) 6 % (20-45) L Monocytes % (Manual) 2 % (1-10) Eosinophils % (Manual) 0 % (0-3) Basophils % (Manual) 0 % (0-2) Band Neutrophils 6 % (0-8) Platelet Estimate Adequate Platelet Morphology Giant Platelets Occasional Polychromasia 1+ Anisocytosis 3+ Tear Drop Cells Occasional Ovalocytes 1+ Digoxin Level > 5.0 NG/ML (0.9-2.0) *H 2.0 NG/ML (0.9-2.0) Intake and Output 07/31/18 08/01/18 19:00 07:00 Intake Total 280 ml 240 ml Balance 280 ml 240 ml Intake Oral 280 ml 240 ml # Voids 3 4 Objective General: No acute distress, awake and alert HEENT: NCAT, sclera anicteric, PERRL, EOMI, PPM @ LCW. Neck: Supple, no significant jugular venous distention, Lungs: decrease air at bases, clear to auscultation bilaterally, no Wheeze or Rales. Heart: Irregular rate and rhythm, normal S1/S2, no murmurs. Abdomen: soft, tenderness upon deep palpation , nondistended. Normoactive bowel sounds. Extremities: No Cyanosis , clubbing or edema. Neuro: A&O x 3, Able to move all extremities, unsteady Gait Skin: warm, no rashes or lesions Psych: Normal mood and affect Assessment/Plan Assessment/Plan Problems: (1) Pulmonary edema (2) Acute encephalopathy (3) RUQ abdominal pain (4) COPD (chronic obstructive pulmonary disease) (5) Atrial fibrillation with RVR (6) CAD (coronary artery disease) (7) Pacemaker (8) KELVIN (obstructive sleep apnea) (9) Peripheral neuropathy (10) abdominal pain and wt. loss. Plan: CT abdomen and pelvic with contract F/u with Dr. Freitas for generator change. GI consult with Dr. Andrade. PT Mobility Consider DC to SNF upon discharge. Antonio Adrian MD Aug 01, 2018 13:48
[2018-08-01] MEDS ORDERED: Isovue-300 100ml vial INJ PRN (14:00)
--- NOTE | 2018-08-01 15:28 | NUR ---
RD ASSESSMENT & RECOMMENDATIONS SEE CARE ACTIVITY FOR COMPLETE ASSESSMENT DAILY ESTIMATED NEEDS: Needs based on Cardiac/ 61kg 25-30kcal/kg kcals/kg 9719-4121 total kcals 1-1.2 g protein/kg 61-73 g total protein Fluid per MD, on lasix NUTRITION DIAGNOSIS: Decreased sodium needs r/t cardiac history and clinical status as evidenced by pt w/ CHF, elev BNP (40302), on lasix. Followed up today for Zeb count x 24 hrs (07/31 dinner to 08/01 lunch) [07/31 dinner: ~ 300kcal] chicken with mashed potatoes and mushrooms 50%- ~ 170kcal jello 10% cottage cheese 100%- 110kcal watermelon 10% [08/01 breakfast: ~125kcal] boiled egg 100%- 75kcal muffin 25%- 25kcal watermelon 50%- 25kcal oatmeal 0% jello 0% [08/01 lunch: ~300kcal] 50% salmon- 110kcal 50% mashed potatoes- 60kcal 100% 4oz milk- 70kcal 100% juice- 60kcal ---- RESULT: based on data x 24 hrs available, pt consumed ~725kcal per day, <50% of est kcal needs, not adequate to meet needs. Will add Ensure Enlive @ all meals (350kcal/20g prot per bottle), add hard boiled eggs x 2 at each breakfast as pt seems to have good acceptance of hardboiled eggs for breakfast. Also rec MVI x 1 as supplement. EMR % intake of meals appears inaccurate. Per EMR, pt consumed 100% of dinner last night on 07/31, which is not reflected on zeb count data (see above). Rec accurate recording of % intake of meals and HPN in EMR CURRENT DIET:Regular soft easy chew PO DIET RECOMMENDATIONS: Low Sodium/ Soft easy chew ADDITIONAL RECOMMENDATIONS: 1) Recalibrated bed scale wts for accurate CBW 2) Check lytes daily w/ lasix 3) Ensure Enlive TID w/ meals (350kcal/20g prot per bottle) 4) MVI x 1 5) Monitor PO intake closely, record % intake accurately in EMR .
[2018-08-01 16:00] VITALS: BP 122/72
--- NOTE | 2018-08-01 19:15 | NUR ---
NURSE NOTES: Received report from Neema ROTH, pt. in bed awake- opens eyes to name, pt. is A/O x's4- Algerian speaking- able to make needs known, cardiac monitoring on, no signs or symptoms of acute cardiac or respiratory distress noted, bed in lowest position and call light within easy reach, bed alarm on, side rails up x's3 and safety brakes engaged, pt. appears to be sating well on 2L NC at 98%- no distress noted, comfort measures provided, all needs attended to, pt. is clean and dry in bed, Lt. AC 24G- IV intact and patent-SL, safety measures continued, will continue with plan of care. Addendum: 08/01/18 at 1959 by GREG PEREZ RN RN pt. aware to ask for assist if ambulating to bathroom.
--- NOTE | 2018-08-01 19:20 | NUR ---
HAND-OFF: Report given to Manuel ROTH. Patient is observed in bed, awake, alert, and able to make needs known. Bed alarm is on. Endorsed plan of care.
--- NOTE | 2018-08-01 19:31 | General Progress Note ---
Assessment/Plan Assessment/Plan: GI CONSULT Assessment - RUQ abd pain - Anorexia - 10 lb weight loss - anemia - afib Recommendations - CT scan abd/pelvis - check stool OB - hold anticoagulation - will consider EGD Saturday Thank you Christina Andrade MD Subjective Allergies: Coded Allergies: No Known Allergies (Unverified , 04/24/18) Objective Last 24 Hour Vital Signs Date Time Temp Pulse Resp B/P (MAP) Pulse Ox O2 Delivery O2 Flow Rate FiO2 08/01/18 16:00 98.2 75 18 122/72 (89) 96 08/01/18 15:42 91 08/01/18 12:10 87 08/01/18 12:00 98.0 103 18 120/80 (93) 96 08/01/18 08:34 110 08/01/18 08:34 110 131/83 08/01/18 08:00 98.4 103 18 131/83 (99) 96 08/01/18 07:47 Room Air 08/01/18 07:37 99 08/01/18 05:00 122 08/01/18 05:00 122 08/01/18 04:00 98.5 122 18 133/92 (106) 96 08/01/18 04:00 113 08/01/18 02:03 110 08/01/18 02:02 77 08/01/18 00:00 98.3 74 16 141/80 (100) 95 08/01/18 00:00 72 07/31/18 21:22 75 141/71 07/31/18 21:00 Room Air 07/31/18 20:00 73 07/31/18 20:00 98.8 74 18 141/71 (94) 96 Intake and Output 07/31/18 08/01/18 18:59 06:59 Intake Total 400 ml 120 ml Balance 400 ml 120 ml Intake Oral 400 ml 120 ml # Voids 3 4 Laboratory Tests 08/01/18 05:28: White Blood Count 9.5, Red Blood Count 3.37L, Hemoglobin 9.8L, Hematocrit 30.4L , Mean Corpuscular Volume 90, Mean Corpuscular Hemoglobin 29.0, Mean Corpuscular Hemoglobin Concent 32.2, Red Cell Distribution Width 22.0H, Platelet Count 215, Mean Platelet Volume 9.2, Neutrophils (%) (Auto) , Lymphocytes (%) (Auto) , Monocytes (%) (Auto) , Eosinophils (%) (Auto) , Basophils (%) (Auto) , Differential Total Cells Counted 100, Neutrophils % ( Manual) 86H, Lymphocytes % (Manual) 6L, Monocytes % (Manual) 2, Eosinophils % ( Manual) 0, Basophils % (Manual) 0, Band Neutrophils 6, Platelet Estimate Adequate, Platelet Morphology , Giant Platelets Occasional, Polychromasia 1+, Anisocytosis 3+, Tear Drop Cells Occasional, Ovalocytes 1+, Digoxin Level > 5.0* H 08/01/18 11:45: Digoxin Level 2.0 Height (Feet): 5 Height (Inches): 6.00 Weight (Pounds): 140 Juwan Andrade MD Aug 01, 2018 19:31
[2018-08-01 20:00] VITALS: BP 100/64
[2018-08-02] VITALS: BP 141/70
--- NOTE | 2018-08-02 01:00 | Consultation ---
DATE OF CONSULTATION: 08/01/2018 GASTROENTEROLOGY CONSULTATION CONSULTING PHYSICIAN: Juwan Andrade M.D. CHIEF COMPLAINT: I was asked to see this patient by Dr. Antonio Adrian for evaluation of abdominal pain and weight loss. HISTORY OF PRESENT ILLNESS: The patient is a pleasant 78-year-old woman who comes into the hospital due to various issues. She complains of a 2-week history of right upper quadrant abdominal pain without nausea or vomiting. She does have some degree of constipation. She has some anemia on admission and nonetheless her diagnosis is polycythemia vera per records. She does not recall ever having any endoscopy or colonoscopy in the past. She thinks she has lost about 11 pounds of weight over the past year. She has chronic atrial fibrillation, for which she is on anticoagulation. At this time, that has been held. She has other medical problems, which are outlined below. PAST MEDICAL HISTORY: Chronic atrial fibrillation, polycythemia vera, hypertension, obstructive sleep apnea, coronary artery disease, status post myocardial infarction, hypercholesterolemia, congestive heart failure. PAST SURGICAL HISTORY: Status post hysterectomy, status post pacemaker placement. MEDICATIONS: Outpatient medications include amiodarone, calcium, clonidine, Pradaxa, Lasix, gabapentin, hydroxyurea, lisinopril, metoprolol, potassium, vitamin D, and presumably the patient is also on Coumadin since her INR was elevated on admission. ALLERGIES: None. FAMILY HISTORY: Noncontributory. SOCIAL HISTORY: The patient is single. She denies smoking or drinking. REVIEW OF SYSTEMS: Otherwise negative. PHYSICAL EXAMINATION: GENERAL: A pleasant woman, seen in her room. HEENT: Normocephalic and atraumatic. Sclerae anicteric. Oropharynx clear. NECK: Supple. CHEST: Clear to auscultation. CARDIOVASCULAR: Revealed a regular rate. ABDOMEN: Soft with right upper quadrant tenderness to palpation. There is some mild voluntary guarding. EXTREMITIES: Revealed no edema. LABORATORY DATA: The patient's laboratory parameters showed iron deficiency and also anemia. Her liver profile showed a mild bilirubin elevation to 1.1, but on admission it was normal. Her RDW is elevated. ASSESSMENT: This patient has right upper quadrant abdominal pain of unclear etiology. Given her abdominal exam and her weight loss, CT scan of the abdomen and pelvis should be done to evaluate the intra-abdominal processes such as pancreatitis, cholecystitis, or colitis. The ultrasound which has been done so far has been unrevealing. In addition, given the degree of anemia and iron deficiency, an endoscopy and then possibly a colonoscopy should be done to evaluate the upper and lower gastrointestinal tract. However, I will first obtain a CT scan of the abdomen and pelvis to evaluate the extraluminal gastrointestinal tract organs. RECOMMENDATIONS: 1. Oral diet as tolerated. 2. Follow laboratory parameters and exam. 3. CT scan of the abdomen and pelvis this weekend. 4. Endoscopy and later possible colonoscopy to evaluate the patient's anemia. Thank you for asking me to participate in the care of this patient. Juwan Andrade M.D. DR: ROSANNA JOB#: [id number] CC:
[2018-08-02] MEDS: cefTRIAXone 1 GM in D5W 55 ML IVPB SCH (03:00)
[2018-08-02 04:00] VITALS: BP 135/66
--- NOTE | 2018-08-02 06:16 | Pulmonology Progress Note ---
Assessment/Plan Problems: (1) Pulmonary edema (2) Acute encephalopathy (3) RUQ abdominal pain (4) COPD (chronic obstructive pulmonary disease) (5) Atrial fibrillation (6) CAD (coronary artery disease) (7) Pacemaker (8) KELVIN (obstructive sleep apnea) (9) Peripheral neuropathy Assessment/Plan on lasix bid, pt incontinent, difficult to measure output watch bun/creatinine titrate cardiac meds, still tachycardic symptomatic treatment check electrolytes check urine cultures, strep viridance in urine ( ? significance) ID to see dvt prophylaxis. Subjective ROS Limited/Unobtainable: No Constitutional: Reports: no symptoms HEENT: Repors: no symptoms Allergies: Coded Allergies: No Known Allergies (Unverified , 04/24/18) Objective Last 24 Hour Vital Signs Date Time Temp Pulse Resp B/P (MAP) Pulse Ox O2 Delivery O2 Flow Rate FiO2 08/02/18 04:00 97.5 81 18 135/66 (89) 97 08/02/18 04:00 62 08/02/18 00:00 2.0 08/02/18 00:00 97.4 67 18 141/70 (93) 95 08/02/18 00:00 65 08/01/18 21:00 Room Air 08/01/18 20:19 62 100/64 08/01/18 20:00 72 08/01/18 20:00 2.0 08/01/18 20:00 97.9 67 19 100/64 (76) 94 08/01/18 16:00 98.2 75 18 122/72 (89) 96 08/01/18 15:42 91 08/01/18 12:10 87 08/01/18 12:00 98.0 103 18 120/80 (93) 96 08/01/18 08:34 110 08/01/18 08:34 110 131/83 08/01/18 08:00 98.4 103 18 131/83 (99) 96 08/01/18 07:47 Room Air 08/01/18 07:37 99 Intake and Output 08/01/18 08/02/18 19:00 07:00 Intake Total 240 ml 55 ml Balance 240 ml 55 ml Intake Oral 240 ml IV Total 55 ml # Voids 8 3 Objective General Appearance: WD/WN, no acute distress Respiratory/Chest: chest wall non-tender, lungs clear Cardiovascular: normal peripheral pulses, normal rate Abdomen: normal bowel sounds, non distended Extremities: no cyanosis, no clubbing Laboratory Tests 08/01/18 11:45: Digoxin Level 2.0 Current Medications Medications (Trade) Dose Ordered Sig/Escobar Route PRN Reason Start Time Stop Time Status Last Admin Dose Admin Acetaminophen (Tylenol) 650 mg Q4H PRN ORAL T>100.5 07/29/18 11:00 08/28/18 06:59 07/30/18 00:22 Amiodarone HCl (Cordarone) 200 mg BID ORAL 07/29/18 18:00 08/28/18 17:59 08/01/18 17:55 Barium Sulfate (Readi-Cat 2) 450 ml NOW PRN ORAL Radiology Procedure 08/01/18 14:00 08/03/18 13:57 Ceftriaxone Sodium 1 gm/ Dextrose 55 ml @ 110 mls/hr Q24H IVPB 07/30/18 04:00 08/06/18 03:59 08/02/18 03:00 Dextrose (Dextrose 50%) 25 ml Q30M PRN IV Hypoglycemia 07/29/18 10:45 08/28/18 07:03 Dextrose (Dextrose 50%) 50 ml Q30M PRN IV hypoglycemia 07/29/18 10:45 08/28/18 07:14 Digoxin (Lanoxin) 0.125 mg DAILY ORAL 07/30/18 09:00 08/29/18 08:59 08/01/18 08:34 Escitalopram Oxalate (Lexapro) 10 mg DAILY ORAL 07/30/18 09:00 08/28/18 08:59 08/01/18 08:34 Furosemide (Lasix) 20 mg Q12HR@0600,1800 IV 08/01/18 18:00 08/31/18 17:59 08/02/18 05:02 Iopamidol (Isovue-300 100ml) 100 ml NOW PRN INJ Radiology Procedure 08/01/18 14:00 08/03/18 13:59 Lorazepam (Ativan 2mg/ml 1ml) 0.5 mg Q4H PRN IV For Anxiety 07/29/18 11:00 08/05/18 06:59 Metoprolol Tartrate (Lopressor) 50 mg EVERY 12 HOURS ORAL 07/29/18 21:00 08/28/18 08:59 08/01/18 08:34 Morphine Sulfate (Morphine Sulfate) 1 mg Q4H PRN IVP PAIN 4-10 07/29/18 11:00 08/05/18 06:59 08/01/18 01:59 Ondansetron HCl (Zofran) 4 mg Q6H PRN IVP Nausea & Vomiting 07/29/18 11:00 08/28/18 10:59 Polyethylene Glycol (Miralax) 17 gm HSPRN PRN ORAL Constipation 07/29/18 21:00 08/28/18 20:59 Zolpidem Tartrate (Ambien) 5 mg HSPRN PRN ORAL Insomnia 07/29/18 21:00 08/05/18 20:59 Kelly Mejia MD Aug 02, 2018 06:16
--- NOTE | 2018-08-02 07:05 | NUR ---
HAND-OFF: Report given to Shlomo Pamla RN, pt. remains stable and no signs of distress noted. Aware to f/u on CT of ABD/ Pelvis.
--- NOTE | 2018-08-02 07:27 | NUR ---
NURSE NOTES: Received report from IRA Jackson. Patient in bed resting no active s/s cardiac, respiratory distress noticed at this time. Patient AOx2,, SR with HR 62. Endorsed patient schedule for CT abd due to abd pain, NPO since midnight. IV on left AC 24G, asymptomatic, patent, intact. Bed in lowest position side rails upx2, call light within reach. Will continue to monitor.
--- NOTE | 2018-08-02 07:50 | NUR ---
NURSE NOTES: Called SonKishan, for telephone consent for CT abd with contrast.
[2018-08-02 08:00] VITALS: BP 137/87
[2018-08-02 08:44] LABS: HEMATOCRIT 33.7 % (37.0-47.0); HEMOGLOBIN 10.8 G/DL (12.0-16.0); MEAN CORPUSCULAR VOLUME 90 FL (80-99); PLATELET COUNT 207 K/UL (150-450); RED BLOOD COUNT 3.75 M/UL (4.20-5.40); RED CELL DISTRIBUTION WIDTH 22.5 % (11.6-14.8); WHITE BLOOD COUNT 7.2 K/UL (4.8-10.8)
[2018-08-02 08:55] LABS: INR 1.1 (0.9-1.1)
[2018-08-02] MEDS: Digoxin 0.125mg tab ORAL SCH (09:04)
[2018-08-02] MEDS: Amiodarone 200mg tab ORAL SCH ×2 (09:04→17:03)
[2018-08-02] MEDS: Metoprolol Tartrate 50mg tab ORAL SCH ×2 (09:04→20:33)
[2018-08-02 09:17] LABS: ALANINE AMINOTRANSFERASE 13 U/L (12-78); ALBUMIN 2.7 G/DL (3.4-5.0); ALBUMIN/GLOBULIN RATIO 0.6 (1.0-2.7); ALKALINE PHOSPHATASE 91 U/L (46-116); ANION GAP 13 mmol/L (5-15); ASPARTATE AMINO TRANSFERASE 18 U/L (15-37); BILIRUBIN,TOTAL 0.7 MG/DL (0.2-1.0); BLOOD UREA NITROGEN 16 mg/dL (7-18); CARBON DIOXIDE 26 MMOL/L (21-32); CHLORIDE 105 MMOL/L (98-107); CREATININE 0.8 MG/DL (0.55-1.30); POTASSIUM 3.1 MMOL/L (3.5-5.1); SODIUM 144 MMOL/L (136-145)
--- NOTE | 2018-08-02 09:58 | Anethesia Preoperative Eval ---
Anesthesia Pre-op PMH/ROS General Date of Evaluation: Aug 02, 2018 Time of Evaluation: 09:54 Anesthesiologist: Fransisca ASA Score: ASA 3 Mallampati Score Class I : Soft palate, uvula, fauces, pillars visible Class II: Soft palate, uvula, fauces visible Class III: Soft palate, base of uvula visible Class IV: Only hard plate visible Mallampati Classification: Class II Surgeon: Devora Diagnosis: A fib existing pacemaker batery EOL Surgical Procedure: Battery replacement Anesthesia History: none Family History: no anesthesia problems Allergies: Coded Allergies: No Known Allergies (Unverified , 04/24/18) Medications: see eMAR Patient NPO?: Yes Past Medical History Cardiovascular: Reports: HTN, arrhythmia - Poorly controlled A fib.; Denies: CAD, [place], valve dz, other Pulmonary: Denies: asthma, COPD, KELVIN, other Gastrointestinal/Genitourinary: Reports: GERD; Denies: CRI, ESRD, other Neurologic/Psychiatric: Reports: dementia - mild; Denies: CVA, depression/anxiety, TIA, other Endocrine: Reports: DM, hypothyroidism; Denies: steroids, other HEENT: Denies: cataract (L), cataract (R), glaucoma, [place] (L), [place] (R), other Hematology/Immune: Reports: anemia, other - polycitemia; Denies: DVT, bleeding disorder Musculoskeletal/Integumentary: Reports: DJD; Denies: OA, RA, DDD, edema, other PMH Narrative: as above PSxH Narrative: see H&P Anesthesia Pre-op Phys. Exam Physician Exam Last Vital Signs Date Time Temp Pulse Resp B/P (MAP) Pulse Ox O2 Delivery O2 Flow Rate FiO2 08/02/18 09:04 74 08/02/18 09:04 137/87 08/02/18 09:00 Room Air 08/02/18 08:00 98.2 18 96 08/02/18 00:00 2.0 Constitutional: NAD Neurologic: other - unable to obtaine Cardiovascular: RRR, no M/R/G Respiratory: CTA Gastrointestinal: S/NT/ND Airway Exam Mallampati Score: Class II MO: limited Neck: stiff ROM: limited Teeth: missing Dentures: no upper, no lower Anesthesia Pre-op A/P Labs Hematology Test 08/02/18 08:25 White Blood Count 7.2 K/UL (4.8-10.8) Red Blood Count 3.75 M/UL (4.20-5.40) L Hemoglobin 10.8 G/DL (12.0-16.0) L Hematocrit 33.7 % (37.0-47.0) L Mean Corpuscular Volume 90 FL (80-99) Mean Corpuscular Hemoglobin 28.9 PG (27.0-31.0) Mean Corpuscular Hemoglobin Concent 32.2 G/DL (32.0-36.0) Red Cell Distribution Width 22.5 % (11.6-14.8) H Platelet Count 207 K/UL (150-450) Mean Platelet Volume 9.4 FL (6.5-10.1) Neutrophils (%) (Auto) % (45.0-75.0) Lymphocytes (%) (Auto) % (20.0-45.0) Monocytes (%) (Auto) % (1.0-10.0) Eosinophils (%) (Auto) % (0.0-3.0) Basophils (%) (Auto) % (0.0-2.0) Differential Total Cells Counted 100 Neutrophils % (Manual) 92 % (45-75) H Lymphocytes % (Manual) 5 % (20-45) L Monocytes % (Manual) 2 % (1-10) Eosinophils % (Manual) 1 % (0-3) Basophils % (Manual) 0 % (0-2) Band Neutrophils 0 % (0-8) Platelet Estimate Adequate Platelet Morphology Normal Anisocytosis 3+ Target Cells Tear Drop Cells 1+ Ovalocytes 2+ Coagulation Test 08/02/18 08:25 Prothrombin Time 12.0 SEC (9.30-11.50) H Prothromb Time International Ratio 1.1 (0.9-1.1) Chemistry Test 08/02/18 08:25 Sodium Level 144 MMOL/L (136-145) Potassium Level 3.1 MMOL/L (3.5-5.1) L Chloride Level 105 MMOL/L (98-107) Carbon Dioxide Level 26 MMOL/L (21-32) Anion Gap 13 mmol/L (5-15) Blood Urea Nitrogen 16 mg/dL (7-18) Creatinine 0.8 MG/DL (0.55-1.30) Estimat Glomerular Filtration Rate mL/min (>60) Glucose Level 101 MG/DL (74-106) Calcium Level 9.0 MG/DL (8.5-10.1) Total Bilirubin 0.7 MG/DL (0.2-1.0) Aspartate Amino Transf (AST/SGOT) 18 U/L (15-37) Alanine Aminotransferase (ALT/SGPT) 13 U/L (12-78) Alkaline Phosphatase 91 U/L (46-116) Pro-B-Type Natriuretic Peptide 4815 pg/mL (0-125) H Total Protein 6.9 G/DL (6.4-8.2) Albumin 2.7 G/DL (3.4-5.0) L Globulin 4.2 g/dL Albumin/Globulin Ratio 0.6 (1.0-2.7) L Risk Assessment & Plan Assessment: ASA 3 Plan: Moe Almendarez MD Aug 02, 2018 09:58
--- NOTE | 2018-08-02 11:03 | General Progress Note ---
Assessment/Plan Problem List: (1) Anemia ICD Codes: D64.9 - Anemia, unspecified SNOMED: 385907692 (2) COPD (chronic obstructive pulmonary disease) ICD Codes: J44.9 - Chronic obstructive pulmonary disease, unspecified SNOMED: 21679781 (3) CHF (congestive heart failure) ICD Codes: I50.9 - Heart failure, unspecified SNOMED: 84776070 (4) Atrial fibrillation ICD Codes: I48.91 - Unspecified atrial fibrillation SNOMED: 89811043 (5) Pacemaker ICD Codes: Z95.0 - Presence of cardiac pacemaker SNOMED: 055410790 Assessment/Plan: iv iron fu cbc fu abd CT possible EGD and colonoscopy this week Subjective ROS Limited/Unobtainable: Yes Allergies: Coded Allergies: No Known Allergies (Unverified , 04/24/18) Objective Last 24 Hour Vital Signs Date Time Temp Pulse Resp B/P (MAP) Pulse Ox O2 Delivery O2 Flow Rate FiO2 08/02/18 09:04 74 08/02/18 09:04 74 137/87 08/02/18 09:00 Room Air 08/02/18 08:00 73 08/02/18 08:00 98.2 74 18 137/87 (104) 96 08/02/18 04:00 97.5 81 18 135/66 (89) 97 08/02/18 04:00 62 08/02/18 00:00 2.0 08/02/18 00:00 97.4 67 18 141/70 (93) 95 08/02/18 00:00 65 08/01/18 21:00 Room Air 08/01/18 20:19 62 100/64 08/01/18 20:00 72 08/01/18 20:00 2.0 08/01/18 20:00 97.9 67 19 100/64 (76) 94 08/01/18 16:00 98.2 75 18 122/72 (89) 96 08/01/18 15:42 91 08/01/18 12:10 87 08/01/18 12:00 98.0 103 18 120/80 (93) 96 Intake and Output 08/01/18 08/02/18 19:00 07:00 Intake Total 240 ml 55 ml Balance 240 ml 55 ml Intake Oral 240 ml IV Total 55 ml # Voids 8 3 Laboratory Tests 08/01/18 11:45: Digoxin Level 2.0 08/02/18 08:25: Digoxin Level 1.2, White Blood Count 7.2, Red Blood Count 3.75L, Hemoglobin 10.8L, Hematocrit 33.7L, Mean Corpuscular Volume 90, Mean Corpuscular Hemoglobin 28.9, Mean Corpuscular Hemoglobin Concent 32.2, Red Cell Distribution Width 22.5H, Platelet Count 207, Mean Platelet Volume 9.4, Neutrophils (%) (Auto) , Lymphocytes (%) (Auto) , Monocytes (%) (Auto) , Eosinophils (%) (Auto) , Basophils (%) (Auto) , Differential Total Cells Counted 100, Neutrophils % (Manual) 92H, Lymphocytes % (Manual) 5L, Monocytes % (Manual) 2, Eosinophils % (Manual) 1, Basophils % (Manual) 0, Band Neutrophils 0 , Platelet Estimate Adequate, Platelet Morphology Normal, Anisocytosis 3+, Target Cells , Tear Drop Cells 1+, Ovalocytes 2+, Prothrombin Time 12.0H, Prothromb Time International Ratio 1.1, Sodium Level 144, Potassium Level 3.1L, Chloride Level 105, Carbon Dioxide Level 26, Anion Gap 13, Blood Urea Nitrogen 16, Creatinine 0.8, Estimat Glomerular Filtration Rate , Glucose Level 101, Calcium Level 9.0, Total Bilirubin 0.7, Aspartate Amino Transf (AST/SGOT) 18, Alanine Aminotransferase (ALT/SGPT) 13, Alkaline Phosphatase 91, Pro-B-Type Natriuretic Peptide 4815H, Total Protein 6.9, Albumin 2.7L, Globulin 4.2, Albumin/Globulin Ratio 0.6L Height (Feet): 5 Height (Inches): 6.00 Weight (Pounds): 140 General Appearance: alert EENT: normal ENT inspection Neck: supple Cardiovascular: normal rate Respiratory/Chest: decreased breath sounds Abdomen: normal bowel sounds, non tender, soft Extremities: non-tender Blair Kaiser MD Aug 02, 2018 11:03
--- NOTE | 2018-08-02 11:10 | Cardiac Electrophysiology PN ---
Assessment/Plan Assessment/Plan 1. Atrial fibrillation with rapid ventricular response. On metoprolol 50 bid, amiodarone 200 mg b.i.d. and digoxin 0.125. Off Pradaxa for pacer generator change Dig level was 0.7 on 07/30. Dig level 1.2 today 2. Status post [employer] pacemaker. Interrogation showed pacer reached EOL 04/10/18. Not pacer dependent. Scheduled for battery change Saturday at 1 3. Hypertension and diastolic dysfunction with BNP>07149 and EF 65%. Continue metoprolol 50 mg b.i.d. and decrease Lasix to 40 po daily 4. Polycythemia vera. The patient is on hydroxyurea. 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 6. Abdominal Pain, weight loss. CT abd pending DW RN and Dr Kaiser Subjective Subjective Converted to sinus again. No CP or SOB. CT abdomen pending for abdominal pain Objective Last 24 Hour Vital Signs Date Time Temp Pulse Resp B/P (MAP) Pulse Ox O2 Delivery O2 Flow Rate FiO2 08/02/18 09:04 74 08/02/18 09:04 74 137/87 08/02/18 09:00 Room Air 08/02/18 08:00 73 08/02/18 08:00 98.2 74 18 137/87 (104) 96 08/02/18 04:00 97.5 81 18 135/66 (89) 97 08/02/18 04:00 62 08/02/18 00:00 2.0 08/02/18 00:00 97.4 67 18 141/70 (93) 95 08/02/18 00:00 65 08/01/18 21:00 Room Air 08/01/18 20:19 62 100/64 08/01/18 20:00 72 08/01/18 20:00 2.0 08/01/18 20:00 97.9 67 19 100/64 (76) 94 08/01/18 16:00 98.2 75 18 122/72 (89) 96 08/01/18 15:42 91 08/01/18 12:10 87 08/01/18 12:00 98.0 103 18 120/80 (93) 96 Intake and Output 08/01/18 08/02/18 19:00 07:00 Intake Total 240 ml 55 ml Balance 240 ml 55 ml Intake Oral 240 ml IV Total 55 ml # Voids 8 3 Laboratory Tests Test 08/01/18 11:45 08/02/18 08:25 Digoxin Level 2.0 NG/ML (0.9-2.0) 1.2 NG/ML (0.9-2.0) White Blood Count 7.2 K/UL (4.8-10.8) Red Blood Count 3.75 M/UL (4.20-5.40) L Hemoglobin 10.8 G/DL (12.0-16.0) L Hematocrit 33.7 % (37.0-47.0) L Mean Corpuscular Volume 90 FL (80-99) Mean Corpuscular Hemoglobin 28.9 PG (27.0-31.0) Mean Corpuscular Hemoglobin Concent 32.2 G/DL (32.0-36.0) Red Cell Distribution Width 22.5 % (11.6-14.8) H Platelet Count 207 K/UL (150-450) Mean Platelet Volume 9.4 FL (6.5-10.1) Neutrophils (%) (Auto) % (45.0-75.0) Lymphocytes (%) (Auto) % (20.0-45.0) Monocytes (%) (Auto) % (1.0-10.0) Eosinophils (%) (Auto) % (0.0-3.0) Basophils (%) (Auto) % (0.0-2.0) Differential Total Cells Counted 100 Neutrophils % (Manual) 92 % (45-75) H Lymphocytes % (Manual) 5 % (20-45) L Monocytes % (Manual) 2 % (1-10) Eosinophils % (Manual) 1 % (0-3) Basophils % (Manual) 0 % (0-2) Band Neutrophils 0 % (0-8) Platelet Estimate Adequate Platelet Morphology Normal Anisocytosis 3+ Target Cells Tear Drop Cells 1+ Ovalocytes 2+ Prothrombin Time 12.0 SEC (9.30-11.50) H Prothromb Time International Ratio 1.1 (0.9-1.1) Sodium Level 144 MMOL/L (136-145) Potassium Level 3.1 MMOL/L (3.5-5.1) L Chloride Level 105 MMOL/L (98-107) Carbon Dioxide Level 26 MMOL/L (21-32) Anion Gap 13 mmol/L (5-15) Blood Urea Nitrogen 16 mg/dL (7-18) Creatinine 0.8 MG/DL (0.55-1.30) Estimat Glomerular Filtration Rate mL/min (>60) Glucose Level 101 MG/DL (74-106) Calcium Level 9.0 MG/DL (8.5-10.1) Total Bilirubin 0.7 MG/DL (0.2-1.0) Aspartate Amino Transf (AST/SGOT) 18 U/L (15-37) Alanine Aminotransferase (ALT/SGPT) 13 U/L (12-78) Alkaline Phosphatase 91 U/L (46-116) Pro-B-Type Natriuretic Peptide 4815 pg/mL (0-125) H Total Protein 6.9 G/DL (6.4-8.2) Albumin 2.7 G/DL (3.4-5.0) L Globulin 4.2 g/dL Albumin/Globulin Ratio 0.6 (1.0-2.7) L Objective HEAD AND NECK: Mild JVD. LUNGS: Decreased breath sounds. CARDIOVASCULAR: regular S1 and S2 with no gallop or murmur Pacemaker left subclavian. ABDOMEN: Soft. EXTREMITIES: No pitting edema. River Freitas MD Aug 02, 2018 11:10
--- NOTE | 2018-08-02 11:20 | NUR ---
NURSE NOTES: Dr. Freitas made aware of K level 3.1. Per Dr. Freitas, 40 mEq KCl, PO q4h for three times. BMP tomorrow morning 08/03/18, consent for pacemaker generator change, NPO at midnight of 08/03/18 for procedure on Saturday. Clarified with MD regarding other nursing order placed on 08/01/18 stating hold [address]oxin. Per Dr. Freitas, since digoxin level 1.2, no need to hold digoxin today. Order noted, entered, and carried out.
[2018-08-02 12:00] VITALS: BP 127/81
--- NOTE | 2018-08-02 12:30 | NUR ---
NURSE NOTES: Paged CT radiologist regarding patient schedule for K-dur which mix with water. Per radiologist, hold k-dur for now, will pick and shovel man the patient in 20 minutes.
--- NOTE | 2018-08-02 12:39 | Consultation ---
History of Present Illness General Date patient seen: Aug 01, 2018 Chief Complaint: Generalized Weakness Present Illness Allergies: Coded Allergies: No Known Allergies (Unverified , 04/24/18) Medication History Scheduled Amiodarone Hcl (Amiodarone Hcl), 200 MG ORAL ilia, (Reported) Dabigatran Etexilate Mesylate* (Pradaxa*), 150 MG PO Q12H, (Reported) Escitalopram Oxalate* (Lexapro*), 10 MG ORAL DAILY, (Reported) Gabapentin (Neurontin), 400 MG ORAL THREE TIMES A DAY Gabapentin* (Gabapentin*), 400 MG ORAL THREE TIMES A DAY, (Reported) Gabapentin* (Gabapentin*), 400 MG ORAL THREE TIMES A DAY, (Reported) Lisinopril (Lisinopril*), 20 MG ORAL BID, (Reported) Metoprolol Tartrate* (Metoprolol Tartrate*), 50 MG ORAL EVERY 12 HOURS, ( Reported) Metoprolol Tartrate* (Metoprolol Tartrate*), 50 MG ORAL EVERY 12 HOURS, ( Reported) Mirtazapine* (Mirtazapine*), 15 MG ORAL BEDTIME, (Reported) Mirtazapine* (Mirtazapine*), 7.5 MG ORAL BEDTIME, (Reported) Omeprazole (Omeprazole), 20 MG ORAL DAILY, (Reported) Scheduled PRN Clonidine Hcl* (Catapres*), 0.1 MG ORAL EVERY 8 HOURS PRN for SBP >170, ( Reported) Diphenhydramine Hcl* (Benadryl*), Unknown Dose ORAL Q6H PRN for Itching, ( Reported) Discontinued Medications Acetaminophen (Tylenol), 650 MG ORAL Q6H PRN for Prn Pain/Headache/Temp > 101 Discontinued Reason: Pt stopped taking med Amiodarone Hcl* (Cordarone*), 200 MG ORAL DAILY, (Reported) Discontinued Reason: Pt stopped taking med Calcium Carbonate ([id number]), 500 MG PO DAILY, (Reported) Discontinued Reason: Pt stopped taking med Calcium Carbonate (Calcium Carbonate), 500 MG PO DAILY, (Reported) Discontinued Reason: Pt stopped taking med Capsaicin (Capsaicin), 1 APPLIC TP BID Discontinued Reason: Pt stopped taking med Cephalexin (Cephalexin), 500 MG ORAL FOUR TIMES A DAY Discontinued Reason: Pt stopped taking med Clonidine Hcl* (Catapres*), 0.1 MG ORAL EVERY 8 HOURS, (Reported) Discontinued Reason: Pt stopped taking med Dabigatran Etexilate Mesylate (Pradaxa), 150 MG PO Q12HR, (Reported) Discontinued Reason: Pt stopped taking med Diphenhydramine Hcl (Banophen), 25 MG PO DAILY, (Reported) Discontinued Reason: Pt stopped taking med Doxycycline Hyclate (Doxycycline Hyclate), 100 MG ORAL EVERY 12 HOURS Discontinued Reason: Pt stopped taking med Furosemide* (Lasix*), 40 MG ORAL DAILY, (Reported) Discontinued Reason: Pt stopped taking med Furosemide* (Lasix*), 40 MG ORAL DAILY, (Reported) Discontinued Reason: Pt stopped taking med Gabapentin* (Gabapentin*), 100 MG ORAL QAM AND 300MG PO QHS, (Reported) Discontinued Reason: Prescription changed Hydroxyurea* (Hydrea*), 500 MG ORAL DAILY Discontinued Reason: Pt stopped taking med Lisinopril* (Zestril*), 20 MG ORAL BID, (Reported) Discontinued Reason: Pt stopped taking med Pot Chloride/Pot Bicarb/Cit Ac (Potassium Cl 25 Meq Tab Eff), 20 MEQ PO DAILY, ( Reported) Discontinued Reason: Pt stopped taking med Potassium Chloride (Potassium Chloride), 20 MEQ ORAL DAILY, (Reported) Discontinued Reason: Pt stopped taking med Silver Sulfadiazine (Silvadene), 20 GM TP BID Discontinued Reason: Pt stopped taking med Silver Sulfadiazine (Silver Sulfadiazine), 1 APPLIC TOPIC DAILY Discontinued Reason: Pt stopped taking med Thiamine Hcl (Vitamin B1*), 100 MG ORAL DAILY, (Reported) Discontinued Reason: Pt stopped taking med Thiamine Hcl* (Vitamin B-1*), 100 MG ORAL DAILY, (Reported) Discontinued Reason: Pt stopped taking med Patient History Healthcare decision maker Resuscitation status Full Code Advanced Directive on File No Physical Exam Last 24 Hour Vital Signs Date Time Temp Pulse Resp B/P (MAP) Pulse Ox O2 Delivery O2 Flow Rate FiO2 08/02/18 09:04 74 08/02/18 09:04 74 137/87 08/02/18 09:00 Room Air 08/02/18 08:00 73 08/02/18 08:00 98.2 74 18 137/87 (104) 96 08/02/18 04:00 97.5 81 18 135/66 (89) 97 08/02/18 04:00 62 08/02/18 00:00 2.0 08/02/18 00:00 97.4 67 18 141/70 (93) 95 08/02/18 00:00 65 08/01/18 21:00 Room Air 08/01/18 20:19 62 100/64 08/01/18 20:00 72 08/01/18 20:00 2.0 08/01/18 20:00 97.9 67 19 100/64 (76) 94 08/01/18 16:00 98.2 75 18 122/72 (89) 96 08/01/18 15:42 91 Intake and Output 08/01/18 08/02/18 19:00 07:00 Intake Total 240 ml 55 ml Balance 240 ml 55 ml Intake Oral 240 ml IV Total 55 ml # Voids 8 3 Laboratory Tests Test 08/02/18 08:25 White Blood Count 7.2 K/UL (4.8-10.8) Red Blood Count 3.75 M/UL (4.20-5.40) L Hemoglobin 10.8 G/DL (12.0-16.0) L Hematocrit 33.7 % (37.0-47.0) L Mean Corpuscular Volume 90 FL (80-99) Mean Corpuscular Hemoglobin 28.9 PG (27.0-31.0) Mean Corpuscular Hemoglobin Concent 32.2 G/DL (32.0-36.0) Red Cell Distribution Width 22.5 % (11.6-14.8) H Platelet Count 207 K/UL (150-450) Mean Platelet Volume 9.4 FL (6.5-10.1) Neutrophils (%) (Auto) % (45.0-75.0) Lymphocytes (%) (Auto) % (20.0-45.0) Monocytes (%) (Auto) % (1.0-10.0) Eosinophils (%) (Auto) % (0.0-3.0) Basophils (%) (Auto) % (0.0-2.0) Differential Total Cells Counted 100 Neutrophils % (Manual) 92 % (45-75) H Lymphocytes % (Manual) 5 % (20-45) L Monocytes % (Manual) 2 % (1-10) Eosinophils % (Manual) 1 % (0-3) Basophils % (Manual) 0 % (0-2) Band Neutrophils 0 % (0-8) Platelet Estimate Adequate Platelet Morphology Normal Anisocytosis 3+ Target Cells Tear Drop Cells 1+ Ovalocytes 2+ Prothrombin Time 12.0 SEC (9.30-11.50) H Prothromb Time International Ratio 1.1 (0.9-1.1) Sodium Level 144 MMOL/L (136-145) Potassium Level 3.1 MMOL/L (3.5-5.1) L Chloride Level 105 MMOL/L (98-107) Carbon Dioxide Level 26 MMOL/L (21-32) Anion Gap 13 mmol/L (5-15) Blood Urea Nitrogen 16 mg/dL (7-18) Creatinine 0.8 MG/DL (0.55-1.30) Estimat Glomerular Filtration Rate mL/min (>60) Glucose Level 101 MG/DL (74-106) Calcium Level 9.0 MG/DL (8.5-10.1) Total Bilirubin 0.7 MG/DL (0.2-1.0) Aspartate Amino Transf (AST/SGOT) 18 U/L (15-37) Alanine Aminotransferase (ALT/SGPT) 13 U/L (12-78) Alkaline Phosphatase 91 U/L (46-116) Pro-B-Type Natriuretic Peptide 4815 pg/mL (0-125) H Total Protein 6.9 G/DL (6.4-8.2) Albumin 2.7 G/DL (3.4-5.0) L Globulin 4.2 g/dL Albumin/Globulin Ratio 0.6 (1.0-2.7) L Digoxin Level 1.2 NG/ML (0.9-2.0) Height (Feet): 5 Height (Inches): 6.00 Weight (Pounds): 140 Medications Current Medications Medications (Trade) Dose Ordered Sig/Escobar Route PRN Reason Start Time Stop Time Status Last Admin Dose Admin Acetaminophen (Tylenol) 650 mg Q4H PRN ORAL T>100.5 07/29/18 11:00 08/28/18 06:59 07/30/18 00:22 Amiodarone HCl (Cordarone) 200 mg BID ORAL 07/29/18 18:00 08/28/18 17:59 08/02/18 09:04 Barium Sulfate (Readi-Cat 2) 450 ml NOW PRN ORAL Radiology Procedure 08/01/18 14:00 08/03/18 13:57 Ceftriaxone Sodium 1 gm/ Dextrose 55 ml @ 110 mls/hr Q24H IVPB 07/30/18 04:00 08/06/18 03:59 08/02/18 03:00 Dextrose (Dextrose 50%) 25 ml Q30M PRN IV Hypoglycemia 07/29/18 10:45 08/28/18 07:03 Dextrose (Dextrose 50%) 50 ml Q30M PRN IV hypoglycemia 07/29/18 10:45 08/28/18 07:14 Digoxin (Lanoxin) 0.125 mg DAILY ORAL 07/30/18 09:00 08/29/18 08:59 08/02/18 09:04 Escitalopram Oxalate (Lexapro) 10 mg DAILY ORAL 07/30/18 09:00 08/28/18 08:59 08/02/18 09:04 Furosemide (Lasix) 40 mg DAILY ORAL 08/03/18 09:00 09/02/18 08:59 Iopamidol (Isovue-300 100ml) 100 ml NOW PRN INJ Radiology Procedure 08/01/18 14:00 08/03/18 13:59 Iron Sucrose 100 mg/Sodium Chloride 60 ml @ 240 mls/hr BEDTIME IV 08/02/18 21:00 08/06/18 21:14 Lorazepam (Ativan 2mg/ml 1ml) 0.5 mg Q4H PRN IV For Anxiety 07/29/18 11:00 08/05/18 06:59 Metoprolol Tartrate (Lopressor) 50 mg EVERY 12 HOURS ORAL 07/29/18 21:00 08/28/18 08:59 08/02/18 09:04 Morphine Sulfate (Morphine Sulfate) 1 mg Q4H PRN IVP PAIN 4-10 07/29/18 11:00 08/05/18 06:59 08/01/18 01:59 Ondansetron HCl (Zofran) 4 mg Q6H PRN IVP Nausea & Vomiting 07/29/18 11:00 08/28/18 10:59 Polyethylene Glycol (Miralax) 17 gm HSPRN PRN ORAL Constipation 07/29/18 21:00 08/28/18 20:59 Potassium Chloride (K-Dur) 40 meq Q4H ORAL 08/02/18 12:00 08/02/18 20:01 Zolpidem Tartrate (Ambien) 5 mg HSPRN PRN ORAL Insomnia 07/29/18 21:00 08/05/18 20:59 Assessment/Plan Assessment/Plan: HEMATOLOGY/ONCOLOGY CONSULTATION DATE OF CONSULT: 08/01/2018 REFERRING MD: Antonio Adrian REASON FOR CONSULT: Anemia, PV HISTORY OF PRESENT ILLNESS: The patient is an 78-year-old female who presented with chief complaint of fever and generalized weakness for 1 week. The patient began to have subjective fevers and chills. The patient also felt like she was dizzy. The patient states the room was not spinning. However, she felt like she was unsteady. The patient presented to [place] emergency room. The patient was found to have heart rate in the 130s. The patient also was found to have fever of 100.1 degrees Fahrenheit. The patient was admitted for tachycardia and fever of unknown origin. Review of cbc ahowed a low hgb of 9.8. Heme/Onc services were consulted for the valuation of anemia. PAST MEDICAL HISTORY: Chronic atrial fibrillation, Polycythemia vera, Hypertension, Obstructive sleep apnea, Coronary artery disease, status post myocardial infarction, Hypercholesterolemia, Congestive heart failure. PAST SURGICAL HISTORY: Pacemaker implantation, Total abdominal hysterectomy. SOCIAL HISTORY: The patient is single and lives with a niece and her sister. The patient denies tobacco or alcohol use. FAMILY HISTORY: Noncontributory CURRENT MEDICATIONS: 1. Amiodarone 200 mg p.o. daily. 2. Calcium carbonate 500 mg p.o. daily. 3. Clonidine 0.1 mg p.o. 3 times daily p.r.n. 4. Pradaxa 150 mg p.o. twice daily. 5. Lasix 40 mg p.o. daily. 6. Gabapentin 400 mg p.o. 3 times daily. 7. Hydroxyurea 500 mg p.o. daily. 8. Lisinopril 20 mg p.o. twice daily. 9. Metoprolol 50 mg p.o. twice daily. 10. Potassium chloride 20 mEq p.o. daily. 11. Vitamin B 100 mg p.o. daily. ALLERGIES: No known drug allergies. REVIEW OF SYSTEMS: CONSTITUTIONAL: The patient denies weight loss or weight gain. The patient complains of subjective fevers and chills as above. HEENT: The patient denies ear or throat pain. The patient denies headache. CARDIOVASCULAR: The patient denies palpitations or chest pain. CHEST: The patient complains of nonproductive cough. The patient denies wheezes. ABDOMEN: The patient denies nausea, vomiting, diarrhea, or constipation. GENITOURINARY: The patient denies dysuria or increased frequency of urination. NEUROMUSCULAR: The patient complains of generalized weakness and ataxia as above. The patient denies seizures. PHYSICAL EXAMINATION: VITAL SIGNS: Have been reviewed GENERAL: The patient is a well-developed and well-nourished female, in no apparent distress. HEENT: Eyes, pupils are equal and responsive to light and accommodation. Extraocular movements are intact. NECK: Supple without lymphadenopathy. CHEST: Lungs are clear to auscultation bilaterally without wheezes or rales. CARDIOVASCULAR: Regular rhythm and rate. S1, S2 normal without murmurs, rubs, or gallops. ABDOMEN: Soft, nontender, nondistended. Positive bowel sounds. No evidence of hepatosplenomegaly. Currently, no rebound or guarding noted. EXTREMITIES: Negative for clubbing, cyanosis, edema. RECTAL/GENITAL: Not performed. NEUROLOGIC: Cranial nerves II through XII are grossly intact without focal deficits. Motor strength is 5/5 bilaterally. Deep tendon reflexes are 2+ plantar. LABORATORY STUDIES: wbc 9.5 hgb 9.8 plt 202 INR 1.8 ASSESSMENT AND RECOMMENDATIONS # Anemia of chronic disease due to underlying chronic medical issues, multifactorial --> Anemia workup has been ordered, rule out gi bleed --> No evidence of hemolysis is noted, peripheral smear has been reviewed. --> Hgb goal >7. Transfuse prn. --> Okay to continue iron x 5 days --> Medications have been reviewed --> low threshold for gi evaluation in case has occult + --> bone marrow biopsy is not indicated given the other more likely causes # Polycythemia vera. Cont on hydroxyurea --> obtain jak2 level --> imaging abd us ordered # Vertigo. --> per neuro as needed # Atrial fibrillation with rapid ventricular rate. Cardiology is following, appreciate recs. --> Serial troponin levels will be performeD --> started on digoxin for rapid ventricular rate. # Hypertension. Cont on clonidine # Obstructive sleep apnea. # Coronary artery disease. # Hypercholesteremia. # Congestive heart failure. The time the the note is entered does not reflect the time the patient was examined. I greatly appreciate the consultation. Best Kaplan MD Aug 02, 2018 12:39
--- NOTE | 2018-08-02 13:50 | NUR ---
PT Note Attempted to see patient for eval/tx but patient refused. States that she is taking to many medicines and they don't feel good in her stomach. RN is aware of patient's complaints.
--- NOTE | 2018-08-02 13:54 | Internal Med Progress Note ---
Subjective Date of Service: Aug 02, 2018 Physician Name Roshan Edwards Attending Physician Antonio Adrian MD Current Medications Medications (Trade) Dose Ordered Sig/Escobar Route PRN Reason Start Time Stop Time Status Last Admin Dose Admin Acetaminophen (Tylenol) 650 mg Q4H PRN ORAL T>100.5 07/29/18 11:00 08/28/18 06:59 07/30/18 00:22 Amiodarone HCl (Cordarone) 200 mg BID ORAL 07/29/18 18:00 08/28/18 17:59 08/02/18 09:04 Barium Sulfate (Readi-Cat 2) 450 ml NOW PRN ORAL Radiology Procedure 08/01/18 14:00 08/03/18 13:57 Ceftriaxone Sodium 1 gm/ Dextrose 55 ml @ 110 mls/hr Q24H IVPB 07/30/18 04:00 08/06/18 03:59 08/02/18 03:00 Dextrose (Dextrose 50%) 25 ml Q30M PRN IV Hypoglycemia 07/29/18 10:45 08/28/18 07:03 Dextrose (Dextrose 50%) 50 ml Q30M PRN IV hypoglycemia 07/29/18 10:45 08/28/18 07:14 Digoxin (Lanoxin) 0.125 mg DAILY ORAL 07/30/18 09:00 08/29/18 08:59 08/02/18 09:04 Escitalopram Oxalate (Lexapro) 10 mg DAILY ORAL 07/30/18 09:00 08/28/18 08:59 08/02/18 09:04 Furosemide (Lasix) 40 mg DAILY ORAL 08/03/18 09:00 09/02/18 08:59 Iopamidol (Isovue-300 100ml) 100 ml NOW PRN INJ Radiology Procedure 08/01/18 14:00 08/03/18 13:59 Iron Sucrose 100 mg/Sodium Chloride 60 ml @ 240 mls/hr BEDTIME IV 08/02/18 21:00 08/06/18 21:14 Lorazepam (Ativan 2mg/ml 1ml) 0.5 mg Q4H PRN IV For Anxiety 07/29/18 11:00 08/05/18 06:59 Metoprolol Tartrate (Lopressor) 50 mg EVERY 12 HOURS ORAL 07/29/18 21:00 08/28/18 08:59 08/02/18 09:04 Morphine Sulfate (Morphine Sulfate) 1 mg Q4H PRN IVP PAIN 4-10 07/29/18 11:00 08/05/18 06:59 08/01/18 01:59 Ondansetron HCl (Zofran) 4 mg Q6H PRN IVP Nausea & Vomiting 07/29/18 11:00 08/28/18 10:59 Polyethylene Glycol (Miralax) 17 gm HSPRN PRN ORAL Constipation 07/29/18 21:00 08/28/18 20:59 Potassium Chloride (K-Dur) 40 meq Q4H ORAL 08/02/18 12:00 08/02/18 20:01 Zolpidem Tartrate (Ambien) 5 mg HSPRN PRN ORAL Insomnia 07/29/18 21:00 08/05/18 20:59 Allergies: Coded Allergies: No Known Allergies (Unverified , 04/24/18) ROS Limited/Unobtainable: No Constitutional: Reports: no symptoms HEENT: Reports: no symptoms Cardiovascular: Reports: no symptoms Respiratory: Reports: no symptoms Gastrointestinal/Abdominal: Reports: no symptoms Genitourinary: Reports: no symptoms Neurologic/Psychiatric: Reports: no symptoms Subjective 78 YO F admitted with fever and vertigo. Now pneumonia. Cover for Int Med-Dr Adrian. Pacemaker Battery change scheduled for 08/04/18. Objective Last Vital Signs Date Time Temp Pulse Resp B/P (MAP) Pulse Ox O2 Delivery O2 Flow Rate FiO2 08/02/18 12:00 56 08/02/18 12:00 98.0 18 127/81 (96) 96 08/02/18 09:00 Room Air 08/02/18 00:00 2.0 Laboratory Tests Test 08/02/18 08:25 White Blood Count 7.2 K/UL (4.8-10.8) Red Blood Count 3.75 M/UL (4.20-5.40) L Hemoglobin 10.8 G/DL (12.0-16.0) L Hematocrit 33.7 % (37.0-47.0) L Mean Corpuscular Volume 90 FL (80-99) Mean Corpuscular Hemoglobin 28.9 PG (27.0-31.0) Mean Corpuscular Hemoglobin Concent 32.2 G/DL (32.0-36.0) Red Cell Distribution Width 22.5 % (11.6-14.8) H Platelet Count 207 K/UL (150-450) Mean Platelet Volume 9.4 FL (6.5-10.1) Neutrophils (%) (Auto) % (45.0-75.0) Lymphocytes (%) (Auto) % (20.0-45.0) Monocytes (%) (Auto) % (1.0-10.0) Eosinophils (%) (Auto) % (0.0-3.0) Basophils (%) (Auto) % (0.0-2.0) Differential Total Cells Counted 100 Neutrophils % (Manual) 92 % (45-75) H Lymphocytes % (Manual) 5 % (20-45) L Monocytes % (Manual) 2 % (1-10) Eosinophils % (Manual) 1 % (0-3) Basophils % (Manual) 0 % (0-2) Band Neutrophils 0 % (0-8) Platelet Estimate Adequate Platelet Morphology Normal Anisocytosis 3+ Target Cells Tear Drop Cells 1+ Ovalocytes 2+ Prothrombin Time 12.0 SEC (9.30-11.50) H Prothromb Time International Ratio 1.1 (0.9-1.1) Sodium Level 144 MMOL/L (136-145) Potassium Level 3.1 MMOL/L (3.5-5.1) L Chloride Level 105 MMOL/L (98-107) Carbon Dioxide Level 26 MMOL/L (21-32) Anion Gap 13 mmol/L (5-15) Blood Urea Nitrogen 16 mg/dL (7-18) Creatinine 0.8 MG/DL (0.55-1.30) Estimat Glomerular Filtration Rate mL/min (>60) Glucose Level 101 MG/DL (74-106) Calcium Level 9.0 MG/DL (8.5-10.1) Total Bilirubin 0.7 MG/DL (0.2-1.0) Aspartate Amino Transf (AST/SGOT) 18 U/L (15-37) Alanine Aminotransferase (ALT/SGPT) 13 U/L (12-78) Alkaline Phosphatase 91 U/L (46-116) Pro-B-Type Natriuretic Peptide 4815 pg/mL (0-125) H Total Protein 6.9 G/DL (6.4-8.2) Albumin 2.7 G/DL (3.4-5.0) L Globulin 4.2 g/dL Albumin/Globulin Ratio 0.6 (1.0-2.7) L Digoxin Level 1.2 NG/ML (0.9-2.0) Intake and Output 08/01/18 08/02/18 19:00 07:00 Intake Total 240 ml 55 ml Balance 240 ml 55 ml Intake Oral 240 ml IV Total 55 ml # Voids 8 3 Objective PHYSICAL EXAMINATION: GENERAL: The patient is a well-developed and well-nourished female, in no apparent distress. HEENT: Eyes, pupils are equal and responsive to light and accommodation. Extraocular movements are intact. NECK: Supple without lymphadenopathy. CHEST: Lungs are clear to auscultation bilaterally without wheezes or rales. CARDIOVASCULAR: Regular rhythm and rate. S1, S2 normal without murmurs, rubs, or gallops. ABDOMEN: Soft, nontender, nondistended. Positive bowel sounds. No evidence of hepatosplenomegaly. Currently, no rebound or guarding noted. EXTREMITIES: Negative for clubbing, cyanosis, edema. RECTAL/GENITAL: Not performed. NEUROLOGIC: Cranial nerves II through XII are grossly intact without focal deficits. Motor strength is 5/5 bilaterally. Deep tendon reflexes are 2+ plantar. Assessment/Plan Assessment/Plan ASSESSMENT: This is an 78-year-old female. 1. Fever. 2. Vertigo. 3. Atrial fibrillation with rapid ventricular rate. 4. Polycythemia vera. 5. Hypertension. 6. Obstructive sleep apnea. 7. Coronary artery disease. 8. Hypercholesteremia. 9. Congestive heart failure. 10. Pneumonia 11. Pacemaker TREATMENT: 1. Atrial fibrillation/coronary artery disease/congestive heart failure. Cardiology consultation has been obtained with Dr. River Freitas. Serial troponin levels will be performed. BNP is pending. An echocardiogram is pending. The patient has been started on digoxin for rapid ventricular rate. 2. Polycythemia vera. Continue hydroxyurea as above. 3. Hypertension. Continue clonidine as above. 4. Obstructive sleep apnea. 5. Hypercholesterolemia. 6. History of congestive heart failure. 7. Pneumonia/fever A pulmonary consultation has been obtained with Dr Mejia. Continue empiric ceftriaxone 8. Pacemaker battery change Saturday08/04/18-see cardiology note. Roshan Edwards MD Aug 02, 2018 13:54
[2018-08-02 16:00] VITALS: BP 130/82
--- NOTE | 2018-08-02 19:07 | NUR ---
HAND-OFF: Report given to IRA Ceja.
--- NOTE | 2018-08-02 19:29 | NUR ---
NURSE NOTES: Report received from Memo Palma RN. Pt is resting in bed in stable condition. Pt is AOx2-3. Pt is on room air and breathing is even and unlabored. No acute distress noted. IV site is L AC #22g and is asymptomatic, patent, and intact. Bed is placed in lowest position with brake engaged, side rails up x3, and bed alarm on. Call light and side table placed within reach. Will continue to monitor.
[2018-08-02 20:00] VITALS: BP 143/71
[2018-08-02] MEDS: Iron Sucrose 100 MG in NS 55 ML IV SCH (20:32)
[2018-08-03] VITALS: BP 134/73
[2018-08-03 04:00] VITALS: BP 129/81
[2018-08-03] MEDS: cefTRIAXone 1 GM in D5W 55 ML IVPB SCH (04:44)
--- NOTE | 2018-08-03 07:23 | NUR ---
HAND-OFF: Report given to Memo Palma RN. Pt is resting in bed in stable condition. No acute distress noted. Endorsed plan of care.
--- NOTE | 2018-08-03 07:24 | NUR ---
NURSE NOTES: Received report from IRA Ceja. Patient in bed resting, no active s/s cardiac, respiratory distress noticed at this time. Patient AOx3, SB with HR 52, patient on room air. IV on left AC 24G, left AC 20G, asymptomatic, patent, intact. Endorsed patient schedule for Pacemaker generator change on Saturday08/03/18, NPO at midnight today, need of OB stool. Bed in lowest position, side rails upx3, call light within reach. Will continue to monitor.
[2018-08-03 07:29] LABS: HEMATOCRIT 28.9 % (37.0-47.0); HEMOGLOBIN 9.3 G/DL (12.0-16.0); MEAN CORPUSCULAR VOLUME 89 FL (80-99); PLATELET COUNT 188 K/UL (150-450); RED BLOOD COUNT 3.25 M/UL (4.20-5.40); RED CELL DISTRIBUTION WIDTH 21.7 % (11.6-14.8); WHITE BLOOD COUNT 7.9 K/UL (4.8-10.8)
[2018-08-03 07:38] LABS: ANION GAP 10 mmol/L (5-15); BLOOD UREA NITROGEN 14 mg/dL (7-18); CALCIUM 8.9 MG/DL (8.5-10.1); CARBON DIOXIDE 28 MMOL/L (21-32); CHLORIDE 103 MMOL/L (98-107); CREATININE 0.8 MG/DL (0.55-1.30); POTASSIUM 3.1 MMOL/L (3.5-5.1); SODIUM 141 MMOL/L (136-145)
[2018-08-03 08:00] VITALS: BP 140/68
--- NOTE | 2018-08-03 08:17 | Consultation ---
History of Present Illness General Date patient seen: Aug 03, 2018 Chief Complaint: Generalized Weakness Reason for Consultation: UTI Present Illness HPI Ms. Pascal is a 78 yo female with PMHx of HTN, CHF, CAD s/p NC s/p pacemaker , KELVIN , HLD and Afib who presented to the ED on 07/30/18 with fever. She was found to have UTI and was treated with Ceftriaxone. Her fever have resolved. She had no leukocytosis. She denies dysuria, n/v/d and abdominal pain. She did have some dizziness. ID was consulted for UTI PMHx/PSHx HTN CHF CAD s/p NC s/p pacemaker KELVIN HLD Afib KELI SocHx No E/T/D FamHx Not Contributory Allergies: Coded Allergies: No Known Allergies (Unverified , 04/24/18) Medication History Scheduled Amiodarone Hcl (Amiodarone Hcl), 200 MG ORAL ilia, (Reported) Dabigatran Etexilate Mesylate* (Pradaxa*), 150 MG PO Q12H, (Reported) Escitalopram Oxalate* (Lexapro*), 10 MG ORAL DAILY, (Reported) Gabapentin (Neurontin), 400 MG ORAL THREE TIMES A DAY Gabapentin* (Gabapentin*), 400 MG ORAL THREE TIMES A DAY, (Reported) Gabapentin* (Gabapentin*), 400 MG ORAL THREE TIMES A DAY, (Reported) Lisinopril (Lisinopril*), 20 MG ORAL BID, (Reported) Metoprolol Tartrate* (Metoprolol Tartrate*), 50 MG ORAL EVERY 12 HOURS, ( Reported) Metoprolol Tartrate* (Metoprolol Tartrate*), 50 MG ORAL EVERY 12 HOURS, ( Reported) Mirtazapine* (Mirtazapine*), 15 MG ORAL BEDTIME, (Reported) Mirtazapine* (Mirtazapine*), 7.5 MG ORAL BEDTIME, (Reported) Omeprazole (Omeprazole), 20 MG ORAL DAILY, (Reported) Scheduled PRN Clonidine Hcl* (Catapres*), 0.1 MG ORAL EVERY 8 HOURS PRN for SBP >170, ( Reported) Diphenhydramine Hcl* (Benadryl*), Unknown Dose ORAL Q6H PRN for Itching, ( Reported) Discontinued Medications Acetaminophen (Tylenol), 650 MG ORAL Q6H PRN for Prn Pain/Headache/Temp > 101 Discontinued Reason: Pt stopped taking med Amiodarone Hcl* (Cordarone*), 200 MG ORAL DAILY, (Reported) Discontinued Reason: Pt stopped taking med Calcium Carbonate ([id number]), 500 MG PO DAILY, (Reported) Discontinued Reason: Pt stopped taking med Calcium Carbonate (Calcium Carbonate), 500 MG PO DAILY, (Reported) Discontinued Reason: Pt stopped taking med Capsaicin (Capsaicin), 1 APPLIC TP BID Discontinued Reason: Pt stopped taking med Cephalexin (Cephalexin), 500 MG ORAL FOUR TIMES A DAY Discontinued Reason: Pt stopped taking med Clonidine Hcl* (Catapres*), 0.1 MG ORAL EVERY 8 HOURS, (Reported) Discontinued Reason: Pt stopped taking med Dabigatran Etexilate Mesylate (Pradaxa), 150 MG PO Q12HR, (Reported) Discontinued Reason: Pt stopped taking med Diphenhydramine Hcl (Banophen), 25 MG PO DAILY, (Reported) Discontinued Reason: Pt stopped taking med Doxycycline Hyclate (Doxycycline Hyclate), 100 MG ORAL EVERY 12 HOURS Discontinued Reason: Pt stopped taking med Furosemide* (Lasix*), 40 MG ORAL DAILY, (Reported) Discontinued Reason: Pt stopped taking med Furosemide* (Lasix*), 40 MG ORAL DAILY, (Reported) Discontinued Reason: Pt stopped taking med Gabapentin* (Gabapentin*), 100 MG ORAL QAM AND 300MG PO QHS, (Reported) Discontinued Reason: Prescription changed Hydroxyurea* (Hydrea*), 500 MG ORAL DAILY Discontinued Reason: Pt stopped taking med Lisinopril* (Zestril*), 20 MG ORAL BID, (Reported) Discontinued Reason: Pt stopped taking med Pot Chloride/Pot Bicarb/Cit Ac (Potassium Cl 25 Meq Tab Eff), 20 MEQ PO DAILY, ( Reported) Discontinued Reason: Pt stopped taking med Potassium Chloride (Potassium Chloride), 20 MEQ ORAL DAILY, (Reported) Discontinued Reason: Pt stopped taking med Silver Sulfadiazine (Silvadene), 20 GM TP BID Discontinued Reason: Pt stopped taking med Silver Sulfadiazine (Silver Sulfadiazine), 1 APPLIC TOPIC DAILY Discontinued Reason: Pt stopped taking med Thiamine Hcl (Vitamin B1*), 100 MG ORAL DAILY, (Reported) Discontinued Reason: Pt stopped taking med Thiamine Hcl* (Vitamin B-1*), 100 MG ORAL DAILY, (Reported) Discontinued Reason: Pt stopped taking med Patient History Healthcare decision maker Resuscitation status Full Code Advanced Directive on File No Review of Systems ROS Narrative 12 point ROS negative except as noted in the HPI Physical Exam Last 24 Hour Vital Signs Date Time Temp Pulse Resp B/P (MAP) Pulse Ox O2 Delivery O2 Flow Rate FiO2 08/03/18 04:00 52 08/03/18 04:00 98.2 52 18 129/81 (97) 98 08/03/18 00:00 97.9 55 18 134/73 (93) 97 08/03/18 00:00 53 08/02/18 21:00 Room Air 08/02/18 20:33 65 143/71 08/02/18 20:00 97.0 60 16 143/71 (95) 97 08/02/18 20:00 60 08/02/18 16:00 98.5 69 18 130/82 (98) 98 08/02/18 16:00 60 08/02/18 12:00 56 08/02/18 12:00 98.0 69 18 127/81 (96) 96 08/02/18 09:04 74 08/02/18 09:04 74 137/87 08/02/18 09:00 Room Air Intake and Output 08/02/18 08/03/18 19:00 07:00 Intake Total 300 ml 120 ml Balance 300 ml 120 ml Intake Oral 300 ml 120 ml # Voids 4 4 Laboratory Tests Test 08/02/18 08:25 08/03/18 05:35 White Blood Count 7.2 K/UL (4.8-10.8) 7.9 K/UL (4.8-10.8) Red Blood Count 3.75 M/UL (4.20-5.40) L 3.25 M/UL (4.20-5.40) L Hemoglobin 10.8 G/DL (12.0-16.0) L 9.3 G/DL (12.0-16.0) L Hematocrit 33.7 % (37.0-47.0) L 28.9 % (37.0-47.0) L Mean Corpuscular Volume 90 FL (80-99) 89 FL (80-99) Mean Corpuscular Hemoglobin 28.9 PG (27.0-31.0) 28.7 PG (27.0-31.0) Mean Corpuscular Hemoglobin Concent 32.2 G/DL (32.0-36.0) 32.3 G/DL (32.0-36.0) Red Cell Distribution Width 22.5 % (11.6-14.8) H 21.7 % (11.6-14.8) H Platelet Count 207 K/UL (150-450) 188 K/UL (150-450) Mean Platelet Volume 9.4 FL (6.5-10.1) 9.0 FL (6.5-10.1) Neutrophils (%) (Auto) % (45.0-75.0) % (45.0-75.0) Lymphocytes (%) (Auto) % (20.0-45.0) % (20.0-45.0) Monocytes (%) (Auto) % (1.0-10.0) % (1.0-10.0) Eosinophils (%) (Auto) % (0.0-3.0) % (0.0-3.0) Basophils (%) (Auto) % (0.0-2.0) % (0.0-2.0) Differential Total Cells Counted 100 Neutrophils % (Manual) 92 % (45-75) H Pending Lymphocytes % (Manual) 5 % (20-45) L Pending Monocytes % (Manual) 2 % (1-10) Eosinophils % (Manual) 1 % (0-3) Basophils % (Manual) 0 % (0-2) Band Neutrophils 0 % (0-8) Platelet Estimate Adequate Pending Platelet Morphology Normal Pending Anisocytosis 3+ Target Cells Tear Drop Cells 1+ Ovalocytes 2+ Prothrombin Time 12.0 SEC (9.30-11.50) H Prothromb Time International Ratio 1.1 (0.9-1.1) Sodium Level 144 MMOL/L (136-145) 141 MMOL/L (136-145) Potassium Level 3.1 MMOL/L (3.5-5.1) L 3.1 MMOL/L (3.5-5.1) L Chloride Level 105 MMOL/L (98-107) 103 MMOL/L (98-107) Carbon Dioxide Level 26 MMOL/L (21-32) 28 MMOL/L (21-32) Anion Gap 13 mmol/L (5-15) 10 mmol/L (5-15) Blood Urea Nitrogen 16 mg/dL (7-18) 14 mg/dL (7-18) Creatinine 0.8 MG/DL (0.55-1.30) 0.8 MG/DL (0.55-1.30) Estimat Glomerular Filtration Rate mL/min (>60) mL/min (>60) Glucose Level 101 MG/DL (74-106) 82 MG/DL (74-106) Calcium Level 9.0 MG/DL (8.5-10.1) 8.9 MG/DL (8.5-10.1) Total Bilirubin 0.7 MG/DL (0.2-1.0) Aspartate Amino Transf (AST/SGOT) 18 U/L (15-37) Alanine Aminotransferase (ALT/SGPT) 13 U/L (12-78) Alkaline Phosphatase 91 U/L (46-116) Pro-B-Type Natriuretic Peptide 4815 pg/mL (0-125) H Total Protein 6.9 G/DL (6.4-8.2) Albumin 2.7 G/DL (3.4-5.0) L Globulin 4.2 g/dL Albumin/Globulin Ratio 0.6 (1.0-2.7) L Digoxin Level 1.2 NG/ML (0.9-2.0) 1.4 NG/ML (0.9-2.0) Height (Feet): 5 Height (Inches): 6.00 Weight (Pounds): 140 Medications Current Medications Medications (Trade) Dose Ordered Sig/Escobar Route PRN Reason Start Time Stop Time Status Last Admin Dose Admin Acetaminophen (Tylenol) 650 mg Q4H PRN ORAL T>100.5 07/29/18 11:00 08/28/18 06:59 07/30/18 00:22 Amiodarone HCl (Cordarone) 200 mg BID ORAL 07/29/18 18:00 08/28/18 17:59 08/02/18 17:03 Barium Sulfate (Readi-Cat 2) 450 ml NOW PRN ORAL Radiology Procedure 08/01/18 14:00 08/03/18 13:57 Ceftriaxone Sodium 1 gm/ Dextrose 55 ml @ 110 mls/hr Q24H IVPB 07/30/18 04:00 08/06/18 03:59 08/03/18 04:44 Dextrose (Dextrose 50%) 25 ml Q30M PRN IV Hypoglycemia 07/29/18 10:45 08/28/18 07:03 Dextrose (Dextrose 50%) 50 ml Q30M PRN IV hypoglycemia 07/29/18 10:45 08/28/18 07:14 Digoxin (Lanoxin) 0.125 mg DAILY ORAL 07/30/18 09:00 08/29/18 08:59 08/02/18 09:04 Escitalopram Oxalate (Lexapro) 10 mg DAILY ORAL 07/30/18 09:00 08/28/18 08:59 08/02/18 09:04 Furosemide (Lasix) 40 mg DAILY ORAL 08/03/18 09:00 09/02/18 08:59 Iopamidol (Isovue-300 100ml) 100 ml NOW PRN INJ Radiology Procedure 08/01/18 14:00 08/03/18 13:59 Iron Sucrose 100 mg/Sodium Chloride 60 ml @ 240 mls/hr BEDTIME IV 08/02/18 21:00 08/06/18 21:14 08/02/18 20:32 Lorazepam (Ativan 2mg/ml 1ml) 0.5 mg Q4H PRN IV For Anxiety 07/29/18 11:00 08/05/18 06:59 Metoprolol Tartrate (Lopressor) 50 mg EVERY 12 HOURS ORAL 07/29/18 21:00 08/28/18 08:59 08/02/18 20:33 Morphine Sulfate (Morphine Sulfate) 1 mg Q4H PRN IVP PAIN 4-10 07/29/18 11:00 08/05/18 06:59 08/01/18 01:59 Ondansetron HCl (Zofran) 4 mg Q6H PRN IVP Nausea & Vomiting 07/29/18 11:00 08/28/18 10:59 Polyethylene Glycol (Miralax) 17 gm HSPRN PRN ORAL Constipation 07/29/18 21:00 08/28/18 20:59 Zolpidem Tartrate (Ambien) 5 mg HSPRN PRN ORAL Insomnia 07/29/18 21:00 08/05/18 20:59 Objective Narrative Gen: NAD HEENT: NCAT, MMM, EOMI, PERRL, No Oral lesion, no scleral icterus NECK: full range of motion, supple, no meningismus, No LAD, No JVD LUNGS: CTAB, No W/C, No Accessory muscle use CARDS: RRR, S1, S2, No M/R/G, ABD: Soft, NT, ND, No R/G, + BS, No HSM, No Masses : Deferred Ext: C/C/E, Pulses 2+ B/L (DP, Rad): NEURO: A/O x 4, Strength and Sensation Grossly intact PSYCH: Normal mood and affect SKIN: Warm/dry, No rashes Assessment/Plan Assessment/Plan: 78 yo female with PMHx of HTN, CHF, CAD s/p NC s/p pacemaker , KELVIN, HLD and Afib who presented to the ED on 07/30/18 with fever. UTI UCx - Strep viridens Fever resoved No leukcoytosis Afib Anemia HTN CHF CAD s/p NC s/p pacemaker KELVIN HLD PLAN: - Start PO Amoxacillin 500mg TID ( End date 08/04/18) - S/P Ceftriaxone #3 - Monitor CBC and Temps Thank you for this consult. We will continue to follow the patient during this hospitalization Petey Castillo MD Aug 03, 2018 08:17
--- NOTE | 2018-08-03 08:38 | General Progress Note ---
Assessment/Plan Problem List: (1) Anemia ICD Codes: D64.9 - Anemia, unspecified SNOMED: 319505610 (2) COPD (chronic obstructive pulmonary disease) ICD Codes: J44.9 - Chronic obstructive pulmonary disease, unspecified SNOMED: 68309023 (3) CHF (congestive heart failure) ICD Codes: I50.9 - Heart failure, unspecified SNOMED: 36788322 (4) Atrial fibrillation ICD Codes: I48.91 - Unspecified atrial fibrillation SNOMED: 29902098 (5) Pacemaker ICD Codes: Z95.0 - Presence of cardiac pacemaker SNOMED: 357264328 Assessment/Plan: iv iron fu cbc fu abd CT possible EGD and colonoscopy this week Subjective ROS Limited/Unobtainable: Yes Allergies: Coded Allergies: No Known Allergies (Unverified , 04/24/18) Objective Last 24 Hour Vital Signs Date Time Temp Pulse Resp B/P (MAP) Pulse Ox O2 Delivery O2 Flow Rate FiO2 08/03/18 04:00 52 08/03/18 04:00 98.2 52 18 129/81 (97) 98 08/03/18 00:00 97.9 55 18 134/73 (93) 97 08/03/18 00:00 53 08/02/18 21:00 Room Air 08/02/18 20:33 65 143/71 08/02/18 20:00 97.0 60 16 143/71 (95) 97 08/02/18 20:00 60 08/02/18 16:00 98.5 69 18 130/82 (98) 98 08/02/18 16:00 60 08/02/18 12:00 56 08/02/18 12:00 98.0 69 18 127/81 (96) 96 08/02/18 09:04 74 08/02/18 09:04 74 137/87 08/02/18 09:00 Room Air Intake and Output 08/02/18 08/03/18 19:00 07:00 Intake Total 300 ml 120 ml Balance 300 ml 120 ml Intake Oral 300 ml 120 ml # Voids 4 4 Laboratory Tests 08/03/18 05:35: White Blood Count 7.9, Red Blood Count 3.25L, Hemoglobin 9.3L, Hematocrit 28.9L , Mean Corpuscular Volume 89, Mean Corpuscular Hemoglobin 28.7, Mean Corpuscular Hemoglobin Concent 32.3, Red Cell Distribution Width 21.7H, Platelet Count 188, Mean Platelet Volume 9.0, Neutrophils (%) (Auto) , Lymphocytes (%) (Auto) , Monocytes (%) (Auto) , Eosinophils (%) (Auto) , Basophils (%) (Auto) , Neutrophils % (Manual) [Pending], Lymphocytes % (Manual) [Pending], Platelet Estimate [Pending], Platelet Morphology [Pending], Sodium Level 141, Potassium Level 3.1L, Chloride Level 103, Carbon Dioxide Level 28, Anion Gap 10, Blood Urea Nitrogen 14, Creatinine 0.8, Estimat Glomerular Filtration Rate , Glucose Level 82, Calcium Level 8.9, Digoxin Level 1.4 Height (Feet): 5 Height (Inches): 6.00 Weight (Pounds): 140 General Appearance: alert EENT: normal ENT inspection Neck: supple Cardiovascular: normal rate Respiratory/Chest: decreased breath sounds Abdomen: normal bowel sounds, non tender, soft Extremities: non-tender Blair Kaiser MD Aug 03, 2018 08:38
[2018-08-03] MEDS: Metoprolol Tartrate 50mg tab ORAL SCH ×2 (09:00→20:51)
[2018-08-03] MEDS: Digoxin 0.125mg tab ORAL SCH (09:00)
[2018-08-03] MEDS: Amiodarone 200mg tab ORAL SCH ×2 (09:12→17:06)
[2018-08-03] MEDS: Furosemide 40mg tab ORAL SCH (09:12)
--- NOTE | 2018-08-03 09:20 | NUR ---
NURSE NOTES: Dr. Mejia made aware patient K level 3.1 today, Per Dr. Mejia, order KCl 40 mEq PO once. Order noted, entered, carried out. Will continue to monitor.
--- NOTE | 2018-08-03 09:29 | Hematology/Onc Progress Note ---
Assessment/Plan Assessment/Plan ASSESSMENT AND RECOMMENDATIONS # Anemia of chronic disease due to underlying chronic medical issues, multifactorial --> Anemia workup has been ordered, rule out gi bleed - results pending. --> No evidence of hemolysis is noted, peripheral smear has been reviewed. --> Hgb goal >7. Transfuse prn. --> Okay to continue iron x 5 days through 08/06 --> Medications have been reviewed --> low threshold for gi evaluation in case has occult + --> bone marrow biopsy is not indicated given the other more likely causes --> Hgb trend: 9.3--> # Polycythemia vera. Cont on hydroxyurea --> obtain jak2 level --> imaging abd us ordered - results pending # Vertigo. --> per neuro as needed # Atrial fibrillation with rapid ventricular rate. Cardiology is following, appreciate recs. --> Serial troponin levels will be performeD --> started on digoxin for rapid ventricular rate. # Hypertension. Cont on clonidine # Obstructive sleep apnea. # Coronary artery disease. # Hypercholesteremia. # Congestive heart failure. The time the the note is entered does not reflect the time the patient was examined. I greatly appreciate the consultation. Subjective Hematologic/Lymphatic: Reports: anemia Allergies: Coded Allergies: No Known Allergies (Unverified , 04/24/18) All Systems: reviewed and negative except above Subjective 08/03: Patient in bed resting, no respiratory distress noticed at this time. Pacemaker generator change on Saturday08/03/18. Stool OB pending. Objective Objective Current Medications Medications (Trade) Dose Ordered Sig/Ecsobar Route PRN Reason Start Time Stop Time Status Last Admin Dose Admin Acetaminophen (Tylenol) 650 mg Q4H PRN ORAL T>100.5 07/29/18 11:00 08/28/18 06:59 07/30/18 00:22 Amiodarone HCl (Cordarone) 200 mg BID ORAL 07/29/18 18:00 08/28/18 17:59 08/03/18 09:12 Amoxicillin (Amoxil) 500 mg TID ORAL 08/03/18 13:00 08/04/18 23:59 Barium Sulfate (Readi-Cat 2) 450 ml NOW PRN ORAL Radiology Procedure 08/01/18 14:00 08/03/18 13:57 Dextrose (Dextrose 50%) 25 ml Q30M PRN IV Hypoglycemia 07/29/18 10:45 08/28/18 07:03 Dextrose (Dextrose 50%) 50 ml Q30M PRN IV hypoglycemia 07/29/18 10:45 08/28/18 07:14 Digoxin (Lanoxin) 0.125 mg DAILY ORAL 07/30/18 09:00 08/29/18 08:59 08/02/18 09:04 Escitalopram Oxalate (Lexapro) 10 mg DAILY ORAL 07/30/18 09:00 08/28/18 08:59 08/03/18 09:12 Furosemide (Lasix) 40 mg DAILY ORAL 08/03/18 09:00 09/02/18 08:59 08/03/18 09:12 Iopamidol (Isovue-300 100ml) 100 ml NOW PRN INJ Radiology Procedure 08/01/18 14:00 08/03/18 13:59 Iron Sucrose 100 mg/Sodium Chloride 60 ml @ 240 mls/hr BEDTIME IV 08/02/18 21:00 08/06/18 21:14 08/02/18 20:32 Lorazepam (Ativan 2mg/ml 1ml) 0.5 mg Q4H PRN IV For Anxiety 07/29/18 11:00 08/05/18 06:59 Metoprolol Tartrate (Lopressor) 50 mg EVERY 12 HOURS ORAL 07/29/18 21:00 08/28/18 08:59 08/02/18 20:33 Morphine Sulfate (Morphine Sulfate) 1 mg Q4H PRN IVP PAIN 4-10 07/29/18 11:00 08/05/18 06:59 08/01/18 01:59 Ondansetron HCl (Zofran) 4 mg Q6H PRN IVP Nausea & Vomiting 07/29/18 11:00 08/28/18 10:59 Polyethylene Glycol (Miralax) 17 gm HSPRN PRN ORAL Constipation 07/29/18 21:00 08/28/18 20:59 Zolpidem Tartrate (Ambien) 5 mg HSPRN PRN ORAL Insomnia 07/29/18 21:00 08/05/18 20:59 Last 24 Hour Vital Signs Date Time Temp Pulse Resp B/P (MAP) Pulse Ox O2 Delivery O2 Flow Rate FiO2 08/03/18 09:00 56 08/03/18 09:00 56 140/68 08/03/18 08:00 97.8 56 18 140/68 (92) 99 08/03/18 04:00 52 08/03/18 04:00 98.2 52 18 129/81 (97) 98 08/03/18 00:00 97.9 55 18 134/73 (93) 97 08/03/18 00:00 53 08/02/18 21:00 Room Air 08/02/18 20:33 65 143/71 08/02/18 20:00 97.0 60 16 143/71 (95) 97 08/02/18 20:00 60 08/02/18 16:00 98.5 69 18 130/82 (98) 98 08/02/18 16:00 60 08/02/18 12:00 56 08/02/18 12:00 98.0 69 18 127/81 (96) 96 08/02/18 09:04 74 08/02/18 09:04 74 137/87 08/02/18 09:00 Room Air 08/02/18 08:00 73 08/02/18 08:00 98.2 74 18 137/87 (104) 96 08/02/18 04:00 97.5 81 18 135/66 (89) 97 08/02/18 04:00 62 08/02/18 00:00 2.0 08/02/18 00:00 97.4 67 18 141/70 (93) 95 08/02/18 00:00 65 08/01/18 21:00 Room Air 08/01/18 20:19 62 100/64 08/01/18 20:00 72 08/01/18 20:00 2.0 08/01/18 20:00 97.9 67 19 100/64 (76) 94 08/01/18 16:00 98.2 75 18 122/72 (89) 96 08/01/18 15:42 91 08/01/18 12:10 87 08/01/18 12:00 98.0 103 18 120/80 (93) 96 Intake and Output 08/02/18 08/03/18 19:00 07:00 Intake Total 300 ml 120 ml Balance 300 ml 120 ml Intake Oral 300 ml 120 ml # Voids 4 4 Labs Test 07/31/18 18:55 08/01/18 05:28 08/01/18 11:45 08/02/18 08:25 Sodium Level 139 MMOL/L (136-145) 144 MMOL/L (136-145) Potassium Level 3.6 MMOL/L (3.5-5.1) 3.1 MMOL/L (3.5-5.1) Chloride Level 105 MMOL/L (98-107) 105 MMOL/L (98-107) Carbon Dioxide Level 26 MMOL/L (21-32) 26 MMOL/L (21-32) Anion Gap 8 mmol/L (5-15) 13 mmol/L (5-15) Blood Urea Nitrogen 19 mg/dL (7-18) 16 mg/dL (7-18) Creatinine 0.9 MG/DL (0.55-1.30) 0.8 MG/DL (0.55-1.30) Estimat Glomerular Filtration Rate mL/min (>60) mL/min (>60) Glucose Level 138 MG/DL (74-106) 101 MG/DL (74-106) Calcium Level 8.8 MG/DL (8.5-10.1) 9.0 MG/DL (8.5-10.1) White Blood Count 9.5 K/UL (4.8-10.8) 7.2 K/UL (4.8-10.8) Red Blood Count 3.37 M/UL (4.20-5.40) 3.75 M/UL (4.20-5.40) Hemoglobin 9.8 G/DL (12.0-16.0) 10.8 G/DL (12.0-16.0) Hematocrit 30.4 % (37.0-47.0) 33.7 % (37.0-47.0) Mean Corpuscular Volume 90 FL (80-99) 90 FL (80-99) Mean Corpuscular Hemoglobin 29.0 PG (27.0-31.0) 28.9 PG (27.0-31.0) Mean Corpuscular Hemoglobin Concent 32.2 G/DL (32.0-36.0) 32.2 G/DL (32.0-36.0) Red Cell Distribution Width 22.0 % (11.6-14.8) 22.5 % (11.6-14.8) Platelet Count 215 K/UL (150-450) 207 K/UL (150-450) Mean Platelet Volume 9.2 FL (6.5-10.1) 9.4 FL (6.5-10.1) Neutrophils (%) (Auto) % (45.0-75.0) % (45.0-75.0) Lymphocytes (%) (Auto) % (20.0-45.0) % (20.0-45.0) Monocytes (%) (Auto) % (1.0-10.0) % (1.0-10.0) Eosinophils (%) (Auto) % (0.0-3.0) % (0.0-3.0) Basophils (%) (Auto) % (0.0-2.0) % (0.0-2.0) Differential Total Cells Counted 100 100 Neutrophils % (Manual) 86 % (45-75) 92 % (45-75) Lymphocytes % (Manual) 6 % (20-45) 5 % (20-45) Monocytes % (Manual) 2 % (1-10) 2 % (1-10) Eosinophils % (Manual) 0 % (0-3) 1 % (0-3) Basophils % (Manual) 0 % (0-2) 0 % (0-2) Band Neutrophils 6 % (0-8) 0 % (0-8) Platelet Estimate Adequate Adequate Platelet Morphology Normal Giant Platelets Occasional Polychromasia 1+ Anisocytosis 3+ 3+ Tear Drop Cells Occasional 1+ Ovalocytes 1+ 2+ Digoxin Level > 5.0 NG/ML (0.9-2.0) 2.0 NG/ML (0.9-2.0) 1.2 NG/ML (0.9-2.0) Target Cells Prothrombin Time 12.0 SEC (9.30-11.50) Prothromb Time International Ratio 1.1 (0.9-1.1) Total Bilirubin 0.7 MG/DL (0.2-1.0) Aspartate Amino Transf (AST/SGOT) 18 U/L (15-37) Alanine Aminotransferase (ALT/SGPT) 13 U/L (12-78) Alkaline Phosphatase 91 U/L (46-116) Pro-B-Type Natriuretic Peptide 4815 pg/mL (0-125) Total Protein 6.9 G/DL (6.4-8.2) Albumin 2.7 G/DL (3.4-5.0) Globulin 4.2 g/dL Albumin/Globulin Ratio 0.6 (1.0-2.7) Test 08/03/18 05:35 White Blood Count 7.9 K/UL (4.8-10.8) Red Blood Count 3.25 M/UL (4.20-5.40) Hemoglobin 9.3 G/DL (12.0-16.0) Hematocrit 28.9 % (37.0-47.0) Mean Corpuscular Volume 89 FL (80-99) Mean Corpuscular Hemoglobin 28.7 PG (27.0-31.0) Mean Corpuscular Hemoglobin Concent 32.3 G/DL (32.0-36.0) Red Cell Distribution Width 21.7 % (11.6-14.8) Platelet Count 188 K/UL (150-450) Mean Platelet Volume 9.0 FL (6.5-10.1) Neutrophils (%) (Auto) % (45.0-75.0) Lymphocytes (%) (Auto) % (20.0-45.0) Monocytes (%) (Auto) % (1.0-10.0) Eosinophils (%) (Auto) % (0.0-3.0) Basophils (%) (Auto) % (0.0-2.0) Sodium Level 141 MMOL/L (136-145) Potassium Level 3.1 MMOL/L (3.5-5.1) Chloride Level 103 MMOL/L (98-107) Carbon Dioxide Level 28 MMOL/L (21-32) Anion Gap 10 mmol/L (5-15) Blood Urea Nitrogen 14 mg/dL (7-18) Creatinine 0.8 MG/DL (0.55-1.30) Estimat Glomerular Filtration Rate mL/min (>60) Glucose Level 82 MG/DL (74-106) Calcium Level 8.9 MG/DL (8.5-10.1) Digoxin Level 1.4 NG/ML (0.9-2.0) Height (Feet): 5 Height (Inches): 6.00 Weight (Pounds): 140 Objective PHYSICAL EXAMINATION: VITAL SIGNS: Have been reviewed GENERAL: The patient is a well-developed and well-nourished female, in no apparent distress. HEENT: Eyes, pupils are equal and responsive to light and accommodation. Extraocular movements are intact. NECK: Supple without lymphadenopathy. CHEST: Lungs are clear to auscultation bilaterally without wheezes or rales. CARDIOVASCULAR: Regular rhythm and rate. S1, S2 normal without murmurs, rubs, or gallops. ABDOMEN: Soft, nontender, nondistended. Positive bowel sounds. No evidence of hepatosplenomegaly. Currently, no rebound or guarding noted. EXTREMITIES: Negative for clubbing, cyanosis, edema. RECTAL/GENITAL: Not performed. NEUROLOGIC: Cranial nerves II through XII are grossly intact without focal deficits. Motor strength is 5/5 bilaterally. Deep tendon reflexes are 2+ plantar. Best Kaplan MD Aug 03, 2018 09:29
--- NOTE | 2018-08-03 09:30 | NUR ---
NURSE NOTES: Called Ultrasound department regarding US abd, no answer.
[2018-08-03 12:00] VITALS: BP 118/70
--- NOTE | 2018-08-03 13:55 | Internal Med Progress Note ---
Subjective Date of Service: Aug 03, 2018 Physician Name Roshan Edwards Attending Physician Antonio Adrian MD Current Medications Medications (Trade) Dose Ordered Sig/Escobar Route PRN Reason Start Time Stop Time Status Last Admin Dose Admin Acetaminophen (Tylenol) 650 mg Q4H PRN ORAL T>100.5 07/29/18 11:00 08/28/18 06:59 07/30/18 00:22 Amiodarone HCl (Cordarone) 200 mg BID ORAL 07/29/18 18:00 08/28/18 17:59 08/03/18 09:12 Amoxicillin (Amoxil) 500 mg TID ORAL 08/03/18 13:00 08/04/18 23:59 08/03/18 12:55 Barium Sulfate (Readi-Cat 2) 450 ml NOW PRN ORAL Radiology Procedure 08/01/18 14:00 08/03/18 13:57 Dextrose (Dextrose 50%) 25 ml Q30M PRN IV Hypoglycemia 07/29/18 10:45 08/28/18 07:03 Dextrose (Dextrose 50%) 50 ml Q30M PRN IV hypoglycemia 07/29/18 10:45 08/28/18 07:14 Digoxin (Lanoxin) 0.125 mg DAILY ORAL 07/30/18 09:00 08/29/18 08:59 08/02/18 09:04 Escitalopram Oxalate (Lexapro) 10 mg DAILY ORAL 07/30/18 09:00 08/28/18 08:59 08/03/18 09:12 Furosemide (Lasix) 40 mg DAILY ORAL 08/03/18 09:00 09/02/18 08:59 08/03/18 09:12 Iopamidol (Isovue-300 100ml) 100 ml NOW PRN INJ Radiology Procedure 08/01/18 14:00 08/03/18 13:59 Iron Sucrose 100 mg/Sodium Chloride 60 ml @ 240 mls/hr BEDTIME IV 08/02/18 21:00 08/06/18 21:14 08/02/18 20:32 Lorazepam (Ativan 2mg/ml 1ml) 0.5 mg Q4H PRN IV For Anxiety 07/29/18 11:00 08/05/18 06:59 Metoprolol Tartrate (Lopressor) 50 mg EVERY 12 HOURS ORAL 07/29/18 21:00 08/28/18 08:59 08/02/18 20:33 Morphine Sulfate (Morphine Sulfate) 1 mg Q4H PRN IVP PAIN 4-10 07/29/18 11:00 08/05/18 06:59 08/01/18 01:59 Ondansetron HCl (Zofran) 4 mg Q6H PRN IVP Nausea & Vomiting 07/29/18 11:00 08/28/18 10:59 Polyethylene Glycol (Miralax) 17 gm HSPRN PRN ORAL Constipation 07/29/18 21:00 08/28/18 20:59 Zolpidem Tartrate (Ambien) 5 mg HSPRN PRN ORAL Insomnia 07/29/18 21:00 08/05/18 20:59 Allergies: Coded Allergies: No Known Allergies (Unverified , 04/24/18) ROS Limited/Unobtainable: No Constitutional: Reports: no symptoms HEENT: Reports: no symptoms Cardiovascular: Reports: no symptoms Respiratory: Reports: no symptoms Gastrointestinal/Abdominal: Reports: no symptoms Genitourinary: Reports: no symptoms Neurologic/Psychiatric: Reports: no symptoms Subjective 78 YO F admitted with fever and vertigo. Now pneumonia. Cover for Int Germán-Dr Adrian. Pacemaker Battery change scheduled for 08/04/18. Objective Last Vital Signs Date Time Temp Pulse Resp B/P (MAP) Pulse Ox O2 Delivery O2 Flow Rate FiO2 08/03/18 12:00 76 08/03/18 12:00 97.5 18 118/70 (86) 98 08/03/18 09:00 Room Air 08/02/18 00:00 2.0 Laboratory Tests Test 08/03/18 05:35 White Blood Count 7.9 K/UL (4.8-10.8) Red Blood Count 3.25 M/UL (4.20-5.40) L Hemoglobin 9.3 G/DL (12.0-16.0) L Hematocrit 28.9 % (37.0-47.0) L Mean Corpuscular Volume 89 FL (80-99) Mean Corpuscular Hemoglobin 28.7 PG (27.0-31.0) Mean Corpuscular Hemoglobin Concent 32.3 G/DL (32.0-36.0) Red Cell Distribution Width 21.7 % (11.6-14.8) H Platelet Count 188 K/UL (150-450) Mean Platelet Volume 9.0 FL (6.5-10.1) Neutrophils (%) (Auto) % (45.0-75.0) Lymphocytes (%) (Auto) % (20.0-45.0) Monocytes (%) (Auto) % (1.0-10.0) Eosinophils (%) (Auto) % (0.0-3.0) Basophils (%) (Auto) % (0.0-2.0) Differential Total Cells Counted 100 Neutrophils % (Manual) 81 % (45-75) H Lymphocytes % (Manual) 10 % (20-45) L Monocytes % (Manual) 4 % (1-10) Eosinophils % (Manual) 0 % (0-3) Basophils % (Manual) 0 % (0-2) Band Neutrophils 5 % (0-8) Platelet Estimate Adequate Platelet Morphology Normal Polychromasia 1+ Anisocytosis 3+ Tear Drop Cells 1+ Ovalocytes 2+ Sodium Level 141 MMOL/L (136-145) Potassium Level 3.1 MMOL/L (3.5-5.1) L Chloride Level 103 MMOL/L (98-107) Carbon Dioxide Level 28 MMOL/L (21-32) Anion Gap 10 mmol/L (5-15) Blood Urea Nitrogen 14 mg/dL (7-18) Creatinine 0.8 MG/DL (0.55-1.30) Estimat Glomerular Filtration Rate mL/min (>60) Glucose Level 82 MG/DL (74-106) Calcium Level 8.9 MG/DL (8.5-10.1) Digoxin Level 1.4 NG/ML (0.9-2.0) Intake and Output 08/02/18 08/03/18 19:00 07:00 Intake Total 300 ml 120 ml Balance 300 ml 120 ml Intake Oral 300 ml 120 ml # Voids 4 4 Objective PHYSICAL EXAMINATION: GENERAL: The patient is a well-developed and well-nourished female, in no apparent distress. HEENT: Eyes, pupils are equal and responsive to light and accommodation. Extraocular movements are intact. NECK: Supple without lymphadenopathy. CHEST: Lungs are clear to auscultation bilaterally without wheezes or rales. CARDIOVASCULAR: Regular rhythm and rate. S1, S2 normal without murmurs, rubs, or gallops. ABDOMEN: Soft, nontender, nondistended. Positive bowel sounds. No evidence of hepatosplenomegaly. Currently, no rebound or guarding noted. EXTREMITIES: Negative for clubbing, cyanosis, edema. RECTAL/GENITAL: Not performed. NEUROLOGIC: Cranial nerves II through XII are grossly intact without focal deficits. Motor strength is 5/5 bilaterally. Deep tendon reflexes are 2+ plantar. Assessment/Plan Assessment/Plan ASSESSMENT: This is an 78-year-old female. 1. Fever. 2. Vertigo. 3. Atrial fibrillation with rapid ventricular rate. 4. Polycythemia vera. 5. Hypertension. 6. Obstructive sleep apnea. 7. Coronary artery disease. 8. Hypercholesteremia. 9. Congestive heart failure. 10. Pneumonia 11. Pacemaker TREATMENT: 1. Atrial fibrillation/coronary artery disease/congestive heart failure. Cardiology consultation has been obtained with Dr. River Freitas. Serial troponin levels will be performed. BNP is pending. An echocardiogram is pending. The patient has been started on digoxin for rapid ventricular rate. 2. Polycythemia vera. Continue hydroxyurea as above. 3. Hypertension. Continue clonidine as above. 4. Obstructive sleep apnea. 5. Hypercholesterolemia. 6. History of congestive heart failure. 7. Pneumonia/fever A pulmonary consultation has been obtained with Dr Mejia. Continue empiric ceftriaxone 8. Pacemaker battery change Saturday08/04/18-see cardiology note. Roshan Edwards MD Aug 03, 2018 13:55
--- NOTE | 2018-08-03 13:57 | Pulmonology Progress Note ---
Assessment/Plan Problems: (1) Pulmonary edema (2) Acute encephalopathy (3) RUQ abdominal pain (4) COPD (chronic obstructive pulmonary disease) (5) Atrial fibrillation (6) CAD (coronary artery disease) (7) Pacemaker (8) KELVIN (obstructive sleep apnea) (9) Peripheral neuropathy Assessment/Plan pacemaker battery will be changed tomorrow on lasix bid, pt incontinent, difficult to measure output watch bun/creatinine titrate cardiac meds, still tachycardic symptomatic treatment check electrolytes check urine cultures, strep viridance in urine ( ? significance) ID to see dvt prophylaxis. Subjective ROS Limited/Unobtainable: No Constitutional: Reports: no symptoms HEENT: Repors: no symptoms Respiratory: Reports: no symptoms Allergies: Coded Allergies: No Known Allergies (Unverified , 04/24/18) Objective Last 24 Hour Vital Signs Date Time Temp Pulse Resp B/P (MAP) Pulse Ox O2 Delivery O2 Flow Rate FiO2 08/03/18 12:00 76 08/03/18 12:00 97.5 72 18 118/70 (86) 98 08/03/18 09:00 Room Air 08/03/18 09:00 56 08/03/18 09:00 56 140/68 08/03/18 08:00 97.8 56 18 140/68 (92) 99 08/03/18 08:00 54 08/03/18 04:00 52 08/03/18 04:00 98.2 52 18 129/81 (97) 98 08/03/18 00:00 97.9 55 18 134/73 (93) 97 08/03/18 00:00 53 08/02/18 21:00 Room Air 08/02/18 20:33 65 143/71 08/02/18 20:00 97.0 60 16 143/71 (95) 97 08/02/18 20:00 60 08/02/18 16:00 98.5 69 18 130/82 (98) 98 08/02/18 16:00 60 Intake and Output 08/02/18 08/03/18 19:00 07:00 Intake Total 300 ml 120 ml Balance 300 ml 120 ml Intake Oral 300 ml 120 ml # Voids 4 4 Objective General Appearance: WD/WN, no acute distress Respiratory/Chest: chest wall non-tender, lungs clear Cardiovascular: normal peripheral pulses, normal rate Abdomen: normal bowel sounds, non distended Extremities: no cyanosis, no clubbing Laboratory Tests 08/03/18 05:35: White Blood Count 7.9, Red Blood Count 3.25L, Hemoglobin 9.3L, Hematocrit 28.9L , Mean Corpuscular Volume 89, Mean Corpuscular Hemoglobin 28.7, Mean Corpuscular Hemoglobin Concent 32.3, Red Cell Distribution Width 21.7H, Platelet Count 188, Mean Platelet Volume 9.0, Neutrophils (%) (Auto) , Lymphocytes (%) (Auto) , Monocytes (%) (Auto) , Eosinophils (%) (Auto) , Basophils (%) (Auto) , Differential Total Cells Counted 100, Neutrophils % ( Manual) 81H, Lymphocytes % (Manual) 10L, Monocytes % (Manual) 4, Eosinophils % ( Manual) 0, Basophils % (Manual) 0, Band Neutrophils 5, Platelet Estimate Adequate, Platelet Morphology Normal, Polychromasia 1+, Anisocytosis 3+, Tear Drop Cells 1+, Ovalocytes 2+, Sodium Level 141, Potassium Level 3.1L, Chloride Level 103, Carbon Dioxide Level 28, Anion Gap 10, Blood Urea Nitrogen 14, Creatinine 0.8, Estimat Glomerular Filtration Rate , Glucose Level 82, Calcium Level 8.9, Digoxin Level 1.4 Current Medications Medications (Trade) Dose Ordered Sig/Escobar Route PRN Reason Start Time Stop Time Status Last Admin Dose Admin Acetaminophen (Tylenol) 650 mg Q4H PRN ORAL T>100.5 07/29/18 11:00 08/28/18 06:59 07/30/18 00:22 Amiodarone HCl (Cordarone) 200 mg BID ORAL 07/29/18 18:00 08/28/18 17:59 08/03/18 09:12 Amoxicillin (Amoxil) 500 mg TID ORAL 08/03/18 13:00 08/04/18 23:59 08/03/18 12:55 Barium Sulfate (Readi-Cat 2) 450 ml NOW PRN ORAL Radiology Procedure 08/01/18 14:00 08/03/18 13:57 Dextrose (Dextrose 50%) 25 ml Q30M PRN IV Hypoglycemia 07/29/18 10:45 08/28/18 07:03 Dextrose (Dextrose 50%) 50 ml Q30M PRN IV hypoglycemia 07/29/18 10:45 08/28/18 07:14 Digoxin (Lanoxin) 0.125 mg DAILY ORAL 07/30/18 09:00 08/29/18 08:59 08/02/18 09:04 Escitalopram Oxalate (Lexapro) 10 mg DAILY ORAL 07/30/18 09:00 08/28/18 08:59 08/03/18 09:12 Furosemide (Lasix) 40 mg DAILY ORAL 08/03/18 09:00 09/02/18 08:59 08/03/18 09:12 Iopamidol (Isovue-300 100ml) 100 ml NOW PRN INJ Radiology Procedure 08/01/18 14:00 08/03/18 13:59 Iron Sucrose 100 mg/Sodium Chloride 60 ml @ 240 mls/hr BEDTIME IV 08/02/18 21:00 08/06/18 21:14 08/02/18 20:32 Lorazepam (Ativan 2mg/ml 1ml) 0.5 mg Q4H PRN IV For Anxiety 07/29/18 11:00 08/05/18 06:59 Metoprolol Tartrate (Lopressor) 50 mg EVERY 12 HOURS ORAL 07/29/18 21:00 08/28/18 08:59 08/02/18 20:33 Morphine Sulfate (Morphine Sulfate) 1 mg Q4H PRN IVP PAIN 4-10 07/29/18 11:00 08/05/18 06:59 08/01/18 01:59 Ondansetron HCl (Zofran) 4 mg Q6H PRN IVP Nausea & Vomiting 07/29/18 11:00 08/28/18 10:59 Polyethylene Glycol (Miralax) 17 gm HSPRN PRN ORAL Constipation 07/29/18 21:00 08/28/18 20:59 Zolpidem Tartrate (Ambien) 5 mg HSPRN PRN ORAL Insomnia 07/29/18 21:00 08/05/18 20:59 Kelly Mejia MD Aug 03, 2018 13:57
--- NOTE | 2018-08-03 14:18 | CDS Physician Query ---
Clarification is required for compliance, coding accuracy, and to reflect severity of illness for this patient Dear Dr. Edwards Date: 08/03/18 CDS: Rm Patton "CHF" is documented in medical Records. BNP: 16020 CXR: Pulmonary edema Echo: EF 60% Rx: IV Furosemide Can you please clarify the type and acuity of CHF? Acuity [ ] Acute [ ] Chronic [ X ] Acute on Chronic Type [ ] Systolic [ X ] Diastolic [ ] Systolic & Diastolic (Combined) [ ] Other: Present on Admission: [ X ] Yes [ ] No [ ] Clinically Undetermined Physician signature Date Please also document in your Progress Notes and/or Discharge Summary and indicate if the condition was present on admission. NAKITA
[2018-08-03 16:00] VITALS: BP 136/68
[2018-08-03] MEDS ORDERED: NS 275ml ONE (16:00)
--- NOTE | 2018-08-03 16:47 | NUR ---
PT Note PT yolanda completed, treatment initiated. Patient was able to ambulate with an SPC. Postural sway noted, making her at a risk for falls. Patient needs PT to increase her muscle strength and balance to improve her safety in mobility and gait. Addendum: 08/03/18 at 1648 by EM BEY PT Amended: Links added.
--- NOTE | 2018-08-03 18:16 | NUR ---
NURSE NOTES: Clarified with lab department regarding jak2 level send out test. Per lab department, unable to see the order. Order re-entered as request for service for jak2 level send out test under LAB category.
--- NOTE | 2018-08-03 19:06 | NUR ---
HAND-OFF: Report given to IRA Ceja.
--- NOTE | 2018-08-03 19:10 | NUR ---
NURSE NOTES: Report received from Memo Palma RN. Pt is resting in bed in stable condition. Pt is AOx4. Pt is on room air and breathing is even and unlabored. No acute distress noted. IV site is L AC #22g and L AC #24g. Both sites are asymptomatic, patent, and intact. Bed is in lowest position with brake engaged, side rails up x3, and bed alarm on. Call light and side table placed within reach. Will continue to monitor.
[2018-08-03 20:00] VITALS: BP 120/71
--- NOTE | 2018-08-03 20:06 | NUR ---
NURSE NOTES: Pt c/o cough and requesting cough syrup. MD Mejia notified and provided order for Phenergan with codeine 5cc Q6HR PRN for cough. Orders noted and carried out. Pending pharmacy verification.
[2018-08-03] MEDS ORDERED: Promethazine/Codeine 5ml UD ORAL PRN (20:15)
[2018-08-03] MEDS: Morphine Sulfate 2mg/ml Inj(IV/IM USE ONLY) IVP PRN (20:51)
[2018-08-03] MEDS: Iron Sucrose 100 MG in NS 55 ML IV SCH (20:51)
[2018-08-04] VITALS (17 sets, daily range): BP systolic 92–144; BP diastolic 47–77
[2018-08-04] MEDS: Morphine Sulfate 2mg/ml Inj(IV/IM USE ONLY) IVP PRN (04:42)
[2018-08-04 06:30] LABS: HEMATOCRIT 30.4 % (37.0-47.0); HEMOGLOBIN 9.8 G/DL (12.0-16.0); MEAN CORPUSCULAR VOLUME 90 FL (80-99); RED BLOOD COUNT 3.38 M/UL (4.20-5.40)
[2018-08-04 06:31] LABS: PLATELET COUNT 174 K/UL (150-450)
[2018-08-04 07:00] LABS: ALANINE AMINOTRANSFERASE 9 U/L (12-78); ALBUMIN 2.8 G/DL (3.4-5.0); ALBUMIN/GLOBULIN RATIO 0.8 (1.0-2.7); ALKALINE PHOSPHATASE 82 U/L (46-116); ANION GAP 11 mmol/L (5-15); ASPARTATE AMINO TRANSFERASE 18 U/L (15-37); BILIRUBIN,TOTAL 0.6 MG/DL (0.2-1.0); BLOOD UREA NITROGEN 15 mg/dL (7-18); CALCIUM 8.7 MG/DL (8.5-10.1); CARBON DIOXIDE 27 MMOL/L (21-32); CHLORIDE 102 MMOL/L (98-107); CREATININE 0.8 MG/DL (0.55-1.30); LACTATE DEHYDROGENASE 514 U/L (81-234); PHOSPHORUS 2.4 MG/DL (2.5-4.9); POTASSIUM 3.1 MMOL/L (3.5-5.1); SODIUM 140 MMOL/L (136-145)
--- NOTE | 2018-08-04 07:20 | NUR ---
NURSE NOTES: Received report from IRA Ceja. The patient is resting on the bed without acute distress or shortness of breath. Pacemaker battery replacement will happend today and pre-op procedure including consent, pt/ptt, off tele order completed. The patient will be kept as NPO prior to the procedure. The patient's bed in the lowest position, call light in reach, and fall and aspiration precaution reinforced. Will continue plan of care.
--- NOTE | 2018-08-04 07:34 | NUR ---
HAND-OFF: Report given to Cameron Alvaerz RN. Pt is resting in bed in stable condition. Endorsed plan of care.
--- NOTE | 2018-08-04 07:41 | NUR ---
NURSE NOTES: Notified Dr. Freitas regarding potassium of 3.1 this morning. Will carry out the order as soon as receives it.
[2018-08-04] MEDS: Furosemide 40mg tab ORAL SCH (09:00)
--- NOTE | 2018-08-04 09:00 | NUR ---
NURSE NOTES: Clarified with Dr. Freitas regarding morning medication. Per Dr. Freitas, administer all morning medications as scheduled including Metoprolol, Amiodarone, and Digoxin. Will carry out the order. Will continue to monitor the patient. Also notified regarding Potassium level of 3.1. Will carry out the order as soon as receives it.
[2018-08-04] MEDS: Amiodarone 200mg tab ORAL SCH ×2 (09:15→17:36)
[2018-08-04] MEDS: Metoprolol Tartrate 50mg tab ORAL SCH ×2 (09:16→20:23)
[2018-08-04] MEDS: Digoxin 0.125mg tab ORAL SCH (09:16)
--- NOTE | 2018-08-04 10:08 | Diagnostic Imaging Report ---
Indication: Abdominal pain Technique: Continuous helical transaxial imaging of the abdomen and pelvis was obtained from the lung bases to the pubic symphysis during intravenous contrast administration. Coronal 2-D reformats were also obtained. Study obtained in a Siemens sensation [address] Automatic Exposure Control was utilized. Total Dose length Product (DLP): 807.[address] Dose Index Volume (CTDIvol): 14.56 mGy Comparison: 02/06/2018 Findings: Trace right pleural effusion demonstrated. Cardiomegaly and pacemaker again noted. The posterior basal atelectasis and some mild patchy groundglass opacities are demonstrated. Prominent spleen with a septated 3 cm cystic focus noted. Gallbladder sludge versus stones are demonstrated within the dependent portion of the gallbladder. Multiple surgical clips are demonstrated in the retroperitoneum of the lower abdomen and pelvis. The bladder is nondistended. Bowel gas pattern is nonobstructive. There is no hydronephrosis. Pancreas is unremarkable. Liver is unremarkable. Uterus is absent. IMPRESSION: Splenomegaly. 3 cm cyst within the spleen probably complex with at least one or 2 septations. Trace right pleural effusion. Gallbladder sludge versus stones. Other incidental findings as above. [facility] has communicated the preliminary results to the Emergency Department. Their findings are largely concordant with this report. The CT scanner at [facility] is accredited by the [employer] and the scans are performed using dose optimization techniques as appropriate to a performed exam including Automatic Exposure control.
--- NOTE | 2018-08-04 10:20 | NUR ---
NURSE NOTES: Per Dr. Freitas, order Troponin now. Carried out the order. Will continue to monitor the patient.
[2018-08-04 10:37] LABS: INR 1.1 (0.9-1.1)
--- NOTE | 2018-08-04 10:59 | Pulmonology Progress Note ---
Assessment/Plan Problems: (1) Pacemaker (2) Atrial fibrillation (3) Pulmonary edema (4) Acute encephalopathy (5) RUQ abdominal pain (6) COPD (chronic obstructive pulmonary disease) (7) CAD (coronary artery disease) (8) KELVIN (obstructive sleep apnea) (9) Peripheral neuropathy Assessment/Plan pacemaker battery will be changed today on lasix bid, pt incontinent, difficult to measure output watch bun/creatinine titrate cardiac meds, still tachycardic symptomatic treatment check electrolytes check urine cultures, strep viridance in urine dvt prophylaxis. Subjective ROS Limited/Unobtainable: No Constitutional: Reports: no symptoms HEENT: Repors: no symptoms Allergies: Coded Allergies: No Known Allergies (Unverified , 04/24/18) Objective Last 24 Hour Vital Signs Date Time Temp Pulse Resp B/P (MAP) Pulse Ox O2 Delivery O2 Flow Rate FiO2 08/04/18 09:16 63 08/04/18 09:16 63 120/71 08/04/18 09:10 63 120/71 (87) 08/04/18 09:00 Room Air 08/04/18 08:00 97.7 55 20 131/63 (85) 95 08/04/18 04:00 60 08/04/18 04:00 97.8 62 17 113/58 (76) 95 08/04/18 00:00 97.7 73 19 121/69 (86) 96 08/04/18 00:00 52 08/03/18 21:00 Room Air 08/03/18 20:51 70 120/71 08/03/18 20:00 69 08/03/18 20:00 97.9 70 19 120/71 (87) 96 08/03/18 16:00 97.2 74 18 136/68 (90) 97 08/03/18 16:00 67 08/03/18 12:00 76 08/03/18 12:00 97.5 72 18 118/70 (86) 98 Intake and Output 08/03/18 08/04/18 19:00 07:00 Intake Total 840 ml Balance 840 ml Intake Oral 840 ml # Voids 7 2 # Bowel Movements 2 Objective General Appearance: WD/WN, no acute distress Respiratory/Chest: chest wall non-tender, lungs clear Cardiovascular: normal peripheral pulses, normal rate Abdomen: normal bowel sounds, non distended Extremities: no cyanosis, no clubbing Laboratory Tests 08/03/18 14:15: Stool Occult Blood Negative 08/04/18 04:50: White Blood Count 8.0, Red Blood Count 3.38L, Hemoglobin 9.8L, Hematocrit 30.4L , Mean Corpuscular Volume 90, Mean Corpuscular Hemoglobin 29.1, Mean Corpuscular Hemoglobin Concent 32.4, Red Cell Distribution Width 22.0H, Platelet Count 174, Mean Platelet Volume 8.4, Neutrophils (%) (Auto) , Lymphocytes (%) (Auto) , Monocytes (%) (Auto) , Eosinophils (%) (Auto) , Basophils (%) (Auto) , Differential Total Cells Counted 100, Neutrophils % ( Manual) 84H, Lymphocytes % (Manual) 5L, Monocytes % (Manual) 3, Eosinophils % ( Manual) 1, Basophils % (Manual) 1, Band Neutrophils 6, Nucleated Red Blood Cells 1, Platelet Estimate Adequate, Platelet Morphology , Giant Platelets Occasional, Polychromasia 1+, Anisocytosis 3+, Tear Drop Cells Occasional, Ovalocytes 2+, Erythrocyte Sedimentation Rate 70H, Reticulocyte Count 2.0, Sodium Level 140, Potassium Level 3.1L, Chloride Level 102, Carbon Dioxide Level 27, Anion Gap 11, Blood Urea Nitrogen 15, Creatinine 0.8, Estimat Glomerular Filtration Rate , Glucose Level 86, Calcium Level 8.7, Phosphorus Level 2.4L, Magnesium Level 1.8, Total Bilirubin 0.6, Aspartate Amino Transf ( AST/SGOT) 18, Alanine Aminotransferase (ALT/SGPT) 9L, Alkaline Phosphatase 82, Lactate Dehydrogenase 514H, Total Protein 6.3L, Albumin 2.8L, Globulin 3.5, Albumin/Globulin Ratio 0.8L 08/04/18 09:45: Prothrombin Time 11.9H, Prothromb Time International Ratio 1.1, Activated Partial Thromboplast Time 29, Troponin I [Pending] Current Medications Medications (Trade) Dose Ordered Sig/Escobar Route PRN Reason Start Time Stop Time Status Last Admin Dose Admin Acetaminophen (Tylenol) 650 mg Q4H PRN ORAL T>100.5 07/29/18 11:00 08/28/18 06:59 07/30/18 00:22 Amiodarone HCl (Cordarone) 200 mg BID ORAL 07/29/18 18:00 08/28/18 17:59 08/04/18 09:15 Amoxicillin (Amoxil) 500 mg TID ORAL 08/03/18 13:00 08/04/18 23:59 08/04/18 09:15 Dextrose (Dextrose 50%) 25 ml Q30M PRN IV Hypoglycemia 07/29/18 10:45 08/28/18 07:03 Dextrose (Dextrose 50%) 50 ml Q30M PRN IV hypoglycemia 07/29/18 10:45 08/28/18 07:14 Digoxin (Lanoxin) 0.125 mg DAILY ORAL 07/30/18 09:00 08/29/18 08:59 08/04/18 09:16 Escitalopram Oxalate (Lexapro) 10 mg DAILY ORAL 07/30/18 09:00 08/28/18 08:59 08/04/18 09:16 Furosemide (Lasix) 40 mg DAILY ORAL 08/03/18 09:00 09/02/18 08:59 08/03/18 09:12 Iron Sucrose 100 mg/Sodium Chloride 60 ml @ 240 mls/hr BEDTIME IV 08/02/18 21:00 08/06/18 21:14 08/03/18 20:51 Lorazepam (Ativan 2mg/ml 1ml) 0.5 mg Q4H PRN IV For Anxiety 07/29/18 11:00 08/05/18 06:59 Metoprolol Tartrate (Lopressor) 50 mg EVERY 12 HOURS ORAL 07/29/18 21:00 08/28/18 08:59 08/04/18 09:16 Morphine Sulfate (Morphine Sulfate) 1 mg Q4H PRN IVP PAIN 4-10 07/29/18 11:00 08/05/18 06:59 08/04/18 04:42 Ondansetron HCl (Zofran) 4 mg Q6H PRN IVP Nausea & Vomiting 07/29/18 11:00 08/28/18 10:59 Polyethylene Glycol (Miralax) 17 gm HSPRN PRN ORAL Constipation 07/29/18 21:00 08/28/18 20:59 Promethazine HCl/ Codeine (Phenergan with Codeine) 5 ml Q6H PRN ORAL For Cough 08/03/18 20:15 09/02/18 20:14 08/03/18 20:51 Zolpidem Tartrate (Ambien) 5 mg HSPRN PRN ORAL Insomnia 07/29/18 21:00 08/05/18 20:59 Kelly Mejia MD Aug 04, 2018 10:59
--- NOTE | 2018-08-04 11:38 | Infectious Diseases Prog Note ---
Assessment/Plan Assessment/Plan Assessment/Plan: 78 yo female with PMHx of HTN, CHF, CAD s/p DC s/p pacemaker , KELVIN, HLD and Afib who presented to the ED on 07/30/18 with fever. UTI UCx - Strep viridens Fever resoved No leukcoytosis Afib Anemia HTN CHF CAD s/p DC s/p pacemaker KELVIN HLD PLAN: - Cont PO Amoxacillin 500mg TID #2 ( End date 08/04/18) - 08/03 S/P Ceftriaxone #6 - Monitor CBC and Temps Thank you for this consult. We will continue to follow the patient during this hospitalization Subjective Allergies: Coded Allergies: No Known Allergies (Unverified , 04/24/18) Subjective aFebrile no leukocytosis Bcx NTD Objective Vital Signs Last 24 Hour Vital Signs Date Time Temp Pulse Resp B/P (MAP) Pulse Ox O2 Delivery O2 Flow Rate FiO2 08/04/18 09:16 63 08/04/18 09:16 63 120/71 08/04/18 09:10 63 120/71 (87) 08/04/18 09:00 Room Air 08/04/18 08:00 97.7 55 20 131/63 (85) 95 08/04/18 08:00 53 08/04/18 04:00 60 08/04/18 04:00 97.8 62 17 113/58 (76) 95 08/04/18 00:00 97.7 73 19 121/69 (86) 96 08/04/18 00:00 52 08/03/18 21:00 Room Air 08/03/18 20:51 70 120/71 08/03/18 20:00 69 08/03/18 20:00 97.9 70 19 120/71 (87) 96 08/03/18 16:00 97.2 74 18 136/68 (90) 97 08/03/18 16:00 67 08/03/18 12:00 76 08/03/18 12:00 97.5 72 18 118/70 (86) 98 Height (Feet): 5 Height (Inches): 6.00 Weight (Pounds): 140 Objective Gen: NAD HEENT: NCAT, MMM, EOMI, PERRL, No Oral lesion, no scleral icterus NECK: full range of motion, supple, no meningismus, No LAD, No JVD LUNGS: CTAB, No W/C, No Accessory muscle use CARDS: RRR, S1, S2, No M/R/G, ABD: Soft, NT, ND, No R/G, + BS, No HSM, No Masses : Deferred Ext: C/C/E, Pulses 2+ B/L (DP, Rad): NEURO: A/O x 4, Strength and Sensation Grossly intact PSYCH: Normal mood and affect SKIN: Warm/dry, No rashes Laboratory Tests Test 08/03/18 14:15 08/04/18 04:50 08/04/18 09:45 Stool Occult Blood Negative (NEGATIVE) White Blood Count 8.0 K/UL (4.8-10.8) Red Blood Count 3.38 M/UL (4.20-5.40) L Hemoglobin 9.8 G/DL (12.0-16.0) L Hematocrit 30.4 % (37.0-47.0) L Mean Corpuscular Volume 90 FL (80-99) Mean Corpuscular Hemoglobin 29.1 PG (27.0-31.0) Mean Corpuscular Hemoglobin Concent 32.4 G/DL (32.0-36.0) Red Cell Distribution Width 22.0 % (11.6-14.8) H Platelet Count 174 K/UL (150-450) Mean Platelet Volume 8.4 FL (6.5-10.1) Neutrophils (%) (Auto) % (45.0-75.0) Lymphocytes (%) (Auto) % (20.0-45.0) Monocytes (%) (Auto) % (1.0-10.0) Eosinophils (%) (Auto) % (0.0-3.0) Basophils (%) (Auto) % (0.0-2.0) Differential Total Cells Counted 100 Neutrophils % (Manual) 84 % (45-75) H Lymphocytes % (Manual) 5 % (20-45) L Monocytes % (Manual) 3 % (1-10) Eosinophils % (Manual) 1 % (0-3) Basophils % (Manual) 1 % (0-2) Band Neutrophils 6 % (0-8) Nucleated Red Blood Cells 1 /100 WBC Platelet Estimate Adequate Platelet Morphology Giant Platelets Occasional Polychromasia 1+ Anisocytosis 3+ Tear Drop Cells Occasional Ovalocytes 2+ Erythrocyte Sedimentation Rate 70 MM/HR (0-30) H Reticulocyte Count 2.0 % (0.5-2.0) Sodium Level 140 MMOL/L (136-145) Potassium Level 3.1 MMOL/L (3.5-5.1) L Chloride Level 102 MMOL/L (98-107) Carbon Dioxide Level 27 MMOL/L (21-32) Anion Gap 11 mmol/L (5-15) Blood Urea Nitrogen 15 mg/dL (7-18) Creatinine 0.8 MG/DL (0.55-1.30) Estimat Glomerular Filtration Rate mL/min (>60) Glucose Level 86 MG/DL (74-106) Calcium Level 8.7 MG/DL (8.5-10.1) Phosphorus Level 2.4 MG/DL (2.5-4.9) L Magnesium Level 1.8 MG/DL (1.8-2.4) Total Bilirubin 0.6 MG/DL (0.2-1.0) Aspartate Amino Transf (AST/SGOT) 18 U/L (15-37) Alanine Aminotransferase (ALT/SGPT) 9 U/L (12-78) L Alkaline Phosphatase 82 U/L (46-116) Lactate Dehydrogenase 514 U/L (81-234) H Total Protein 6.3 G/DL (6.4-8.2) L Albumin 2.8 G/DL (3.4-5.0) L Globulin 3.5 g/dL Albumin/Globulin Ratio 0.8 (1.0-2.7) L Prothrombin Time 11.9 SEC (9.30-11.50) H Prothromb Time International Ratio 1.1 (0.9-1.1) Activated Partial Thromboplast Time 29 SEC (23-33) Troponin I 0.000 ng/mL (0.000-0.056) Current Medications Medications (Trade) Dose Ordered Sig/Escobar Route PRN Reason Start Time Stop Time Status Last Admin Dose Admin Acetaminophen (Tylenol) 650 mg Q4H PRN ORAL T>100.5 07/29/18 11:00 08/28/18 06:59 07/30/18 00:22 Amiodarone HCl (Cordarone) 200 mg BID ORAL 07/29/18 18:00 08/28/18 17:59 08/04/18 09:15 Amoxicillin (Amoxil) 500 mg TID ORAL 08/03/18 13:00 08/04/18 23:59 08/04/18 09:15 Dextrose (Dextrose 50%) 25 ml Q30M PRN IV Hypoglycemia 07/29/18 10:45 08/28/18 07:03 Dextrose (Dextrose 50%) 50 ml Q30M PRN IV hypoglycemia 07/29/18 10:45 08/28/18 07:14 Digoxin (Lanoxin) 0.125 mg DAILY ORAL 07/30/18 09:00 08/29/18 08:59 08/04/18 09:16 Escitalopram Oxalate (Lexapro) 10 mg DAILY ORAL 07/30/18 09:00 08/28/18 08:59 08/04/18 09:16 Furosemide (Lasix) 40 mg DAILY ORAL 08/03/18 09:00 09/02/18 08:59 08/03/18 09:12 Iron Sucrose 100 mg/Sodium Chloride 60 ml @ 240 mls/hr BEDTIME IV 08/02/18 21:00 08/06/18 21:14 08/03/18 20:51 Lorazepam (Ativan 2mg/ml 1ml) 0.5 mg Q4H PRN IV For Anxiety 07/29/18 11:00 08/05/18 06:59 Metoprolol Tartrate (Lopressor) 50 mg EVERY 12 HOURS ORAL 07/29/18 21:00 08/28/18 08:59 08/04/18 09:16 Morphine Sulfate (Morphine Sulfate) 1 mg Q4H PRN IVP PAIN 4-10 07/29/18 11:00 08/05/18 06:59 08/04/18 04:42 Ondansetron HCl (Zofran) 4 mg Q6H PRN IVP Nausea & Vomiting 07/29/18 11:00 08/28/18 10:59 Polyethylene Glycol (Miralax) 17 gm HSPRN PRN ORAL Constipation 07/29/18 21:00 08/28/18 20:59 Promethazine HCl/ Codeine (Phenergan with Codeine) 5 ml Q6H PRN ORAL For Cough 08/03/18 20:15 09/02/18 20:14 08/03/18 20:51 Zolpidem Tartrate (Ambien) 5 mg HSPRN PRN ORAL Insomnia 07/29/18 21:00 08/05/18 20:59 Alejandrina Arrieta M.D. Aug 04, 2018 11:38
--- NOTE | 2018-08-04 12:00 | NUR ---
NURSE NOTES: Notified Dr. Edwards regarding potassium of 3.1. Will carry out the order as soon as receives it. Will continue to monitor the patient.
[2018-08-04] MEDS ORDERED: Lidocaine 1% Plain 30 ml INJ ONE (12:06)
[2018-08-04] MEDS ORDERED: Isovue-M 300 15ml INJ ONE (12:06)
--- NOTE | 2018-08-04 12:10 | NUR ---
NURSE NOTES: Spoke with Eden, next of kin regarding the pacemaker battery change that will happend 1230. The patient was stable without acute distress or shortness of breath upon transferring to procedure room. The patient is on NPO, PT/PTT done, consent obtained and signed, off tele order initiated, pre-op procedure checklist completed. Intact and patent IV confirmed. Will continue plan of care as soon as the patient arrives back to the unit.
--- NOTE | 2018-08-04 12:13 | Pre-Procedure Note/Attestation ---
Pre-Procedure Note/Attestation Complete Prior to Procedure Planned Procedure: left Indications for Procedure Pre-Operative Diagnosis: Pacer EOL Attestation I attest that I discussed the nature of the procedure; its benefits; risks and complications; and alternatives (and the risks and benefits of such alternatives ), prior to the procedure, with the patient (or the patient's legal compliance representative dealer). I attest that, if there was a reasonable possibility of needing a blood transfusion, the patient (or the patient's legal compliance representative dealer) was given the [facility] standardized written summary, pursuant to the Rufus Yuridia Blood Safety Act ([place] Health and Safety Code # 1645, as amended). I attest that I re-evaluated the patient just prior to the surgery and that there has been no change in the patient's H&P, except as documented below: River Freitas MD Aug 04, 2018 12:13
--- NOTE | 2018-08-04 12:16 | Anethesia Preoperative Eval ---
Anesthesia Pre-op PMH/ROS General Date of Evaluation: Aug 04, 2018 Anesthesiologist: Steve ASA Score: ASA 3 Mallampati Score Class I : Soft palate, uvula, fauces, pillars visible Class II: Soft palate, uvula, fauces visible Class III: Soft palate, base of uvula visible Class IV: Only hard plate visible Mallampati Classification: Class II Surgeon: Barron Diagnosis: Pacemaker failure Surgical Procedure: Pacemaker battery replacement Anesthesia History: none Family History: no anesthesia problems Allergies: Coded Allergies: No Known Allergies (Unverified , 04/24/18) Medications: see eMAR Patient NPO?: Yes NPO Date: Aug 04, 2018 NPO Time: 0000 Past Medical History Cardiovascular: Reports: HTN, arrhythmia - afib with RVR, h/o pacemaker placement, now with EOL; Denies: CAD, DC, valve dz, other Pulmonary: Denies: asthma, COPD, KELVIN, other Gastrointestinal/Genitourinary: Reports: GERD; Denies: CRI, ESRD, other Neurologic/Psychiatric: Denies: dementia, CVA, depression/anxiety, TIA, other Endocrine: Reports: DM, hypothyroidism; Denies: steroids, other HEENT: Denies: cataract (L), cataract (R), glaucoma, [place] (L), [place] (R), other Hematology/Immune: Reports: anemia - chronic, other - polycythemia vera; Denies: DVT, bleeding disorder Musculoskeletal/Integumentary: Denies: OA, RA, DJD, DDD, edema, other PSxH Narrative: pacemaker Anesthesia Pre-op Phys. Exam Physician Exam Last Vital Signs Date Time Temp Pulse Resp B/P (MAP) Pulse Ox O2 Delivery O2 Flow Rate FiO2 08/04/18 09:16 63 08/04/18 09:16 120/71 08/04/18 09:00 Room Air 08/04/18 08:00 97.7 20 95 08/02/18 00:00 2.0 Airway Exam Mallampati Score: Class II Anesthesia Pre-op A/P Labs Hematology Test 08/04/18 04:50 White Blood Count 8.0 K/UL (4.8-10.8) Red Blood Count 3.38 M/UL (4.20-5.40) L Hemoglobin 9.8 G/DL (12.0-16.0) L Hematocrit 30.4 % (37.0-47.0) L Mean Corpuscular Volume 90 FL (80-99) Mean Corpuscular Hemoglobin 29.1 PG (27.0-31.0) Mean Corpuscular Hemoglobin Concent 32.4 G/DL (32.0-36.0) Red Cell Distribution Width 22.0 % (11.6-14.8) H Platelet Count 174 K/UL (150-450) Mean Platelet Volume 8.4 FL (6.5-10.1) Neutrophils (%) (Auto) % (45.0-75.0) Lymphocytes (%) (Auto) % (20.0-45.0) Monocytes (%) (Auto) % (1.0-10.0) Eosinophils (%) (Auto) % (0.0-3.0) Basophils (%) (Auto) % (0.0-2.0) Differential Total Cells Counted 100 Neutrophils % (Manual) 84 % (45-75) H Lymphocytes % (Manual) 5 % (20-45) L Monocytes % (Manual) 3 % (1-10) Eosinophils % (Manual) 1 % (0-3) Basophils % (Manual) 1 % (0-2) Band Neutrophils 6 % (0-8) Nucleated Red Blood Cells 1 /100 WBC Platelet Estimate Adequate Platelet Morphology Giant Platelets Occasional Polychromasia 1+ Anisocytosis 3+ Tear Drop Cells Occasional Ovalocytes 2+ Erythrocyte Sedimentation Rate 70 MM/HR (0-30) H Reticulocyte Count 2.0 % (0.5-2.0) Coagulation Test 08/04/18 09:45 Prothrombin Time 11.9 SEC (9.30-11.50) H Prothromb Time International Ratio 1.1 (0.9-1.1) Activated Partial Thromboplast Time 29 SEC (23-33) Chemistry Test 08/04/18 04:50 08/04/18 09:45 Sodium Level 140 MMOL/L (136-145) Potassium Level 3.1 MMOL/L (3.5-5.1) L Chloride Level 102 MMOL/L (98-107) Carbon Dioxide Level 27 MMOL/L (21-32) Anion Gap 11 mmol/L (5-15) Blood Urea Nitrogen 15 mg/dL (7-18) Creatinine 0.8 MG/DL (0.55-1.30) Estimat Glomerular Filtration Rate mL/min (>60) Glucose Level 86 MG/DL (74-106) Calcium Level 8.7 MG/DL (8.5-10.1) Phosphorus Level 2.4 MG/DL (2.5-4.9) L Magnesium Level 1.8 MG/DL (1.8-2.4) Total Bilirubin 0.6 MG/DL (0.2-1.0) Aspartate Amino Transf (AST/SGOT) 18 U/L (15-37) Alanine Aminotransferase (ALT/SGPT) 9 U/L (12-78) L Alkaline Phosphatase 82 U/L (46-116) Lactate Dehydrogenase 514 U/L (81-234) H Total Protein 6.3 G/DL (6.4-8.2) L Albumin 2.8 G/DL (3.4-5.0) L Globulin 3.5 g/dL Albumin/Globulin Ratio 0.8 (1.0-2.7) L Troponin I 0.000 ng/mL (0.000-0.056) Yen Flower MD Aug 04, 2018 12:16
[2018-08-04] MEDS ORDERED: fentaNYL 100 mcg/2 mL IV ONE (12:24)
[2018-08-04] MEDS ORDERED: Lidocaine 1% MPF 10mg/ml 5ml ONE (12:24)
[2018-08-04] MEDS ORDERED: Midazolam 2mg/2ml Inj ONE (12:24)
[2018-08-04] MEDS ORDERED: NS 275ml IRRIG ONE (12:30)
[2018-08-04] MEDS ORDERED: NS Irrig 1000ml ONE (12:30)
[2018-08-04] MEDS ORDERED: Sterile Water Irrig 1000ml IRRIG ONE ×2 (12:30→13:07)
[2018-08-04] MEDS ORDERED: LR 1000ml ONE (12:30)
--- NOTE | 2018-08-04 12:40 | NUR ---
P.T Note: late entry 929 P.T attempted however pt refused to participate. RN notified/aware.
--- NOTE | 2018-08-04 12:48 | Immediate Post-Op Evaluation ---
Immediate Post-Op Evalulation Immediate Post-Op Evalulation Procedure: Pacemaker battery replacement Date of Evaluation: Aug 04, 2018 Time of Evaluation: 13:29 IV Fluids: 100 Blood Products: 0 Estimated Blood Loss: min Urinary Output: 0 Blood Pressure Systolic: 119 Blood Pressure Diastolic: 51 Pulse Rate: 59 Respiratory Rate: 16 O2 Sat by Pulse Oximetry: 100 Temperature (Fahrenheit): 97.3 Pain Score (1-10): 0 Nausea: No Vomiting: No Complications 0 Patient Status: awake, reacts, patent, none Hydration Status: adequate Drug: Ancef 1g Given Within 1 Hr of Incision: Yes Yen Flower MD Aug 04, 2018 12:48
[2018-08-04] MEDS ORDERED: Atropine Inj 1mg/10ml Syr IV PRN (13:00)
[2018-08-04] MEDS ORDERED: fentaNYL 100 mcg/2 mL IV PRN (13:00)
[2018-08-04] MEDS ORDERED: DiphenhydrAMINE 50mg/ml Inj IVP PRN (13:00)
--- NOTE | 2018-08-04 13:23 | Brief Operative Note ---
Immediate Post Operative Note Operative Note Pre-op Diagnosis: Pacer EOL Procedure: Pacer gen change Post-op Diagnosis: same as pre-op Specimen: none Complications: none Condition: stable Fluids: none Estimated Blood Loss: minimal Implant(s) used?: Yes River Freitas MD Aug 04, 2018 13:23
[2018-08-04] MEDS ORDERED: Tylenol #3 tab (300mg/30mg) ORAL PRN (13:30)
[2018-08-04] MEDS ORDERED: Morphine Sulfate 2mg/ml Inj(IV/IM USE ONLY) IVP PRN ×2 (13:31→13:45)
--- NOTE | 2018-08-04 13:33 | Cardiac Electrophysiology PN ---
Assessment/Plan Assessment/Plan 1. Atrial fibrillation with rapid ventricular response. On metoprolol 50 bid, amiodarone 200 mg b.i.d. and digoxin 0.125. Resume Pradaxa after EGD tomorrow if OK with GI Dig level 1.4 on 08/03/18 2. Status post [employer] pacemaker generator change today as reached EOL on 04/10/18. 3. Hypertension and diastolic dysfunction with BNP>37664 and EF 65%. Continue metoprolol 50 mg b.i.d. and Lasix 40 po daily 4. Polycythemia vera. The patient is on hydroxyurea. 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 6. Abdominal Pain, weight loss. EGD tomorrow RILEY RN and Dr Andrade Subjective Subjective No CP or SOB. Had pacer generator change today. Dictated # [id number] Objective Last 24 Hour Vital Signs Date Time Temp Pulse Resp B/P (MAP) Pulse Ox O2 Delivery O2 Flow Rate FiO2 08/04/18 12:00 97.7 50 20 92/58 (69) 95 08/04/18 12:00 51 08/04/18 09:16 63 08/04/18 09:16 63 120/71 08/04/18 09:10 63 120/71 (87) 08/04/18 09:00 Room Air 08/04/18 08:00 97.7 55 20 131/63 (85) 95 08/04/18 08:00 53 08/04/18 04:00 60 08/04/18 04:00 97.8 62 17 113/58 (76) 95 08/04/18 00:00 97.7 73 19 121/69 (86) 96 08/04/18 00:00 52 08/03/18 21:00 Room Air 08/03/18 20:51 70 120/71 08/03/18 20:00 69 08/03/18 20:00 97.9 70 19 120/71 (87) 96 08/03/18 16:00 97.2 74 18 136/68 (90) 97 08/03/18 16:00 67 Intake and Output 08/03/18 08/04/18 19:00 07:00 Intake Total 840 ml Balance 840 ml Intake Oral 840 ml # Voids 7 2 # Bowel Movements 2 Laboratory Tests Test 08/03/18 14:15 08/04/18 04:50 08/04/18 09:45 Stool Occult Blood Negative (NEGATIVE) White Blood Count 8.0 K/UL (4.8-10.8) Red Blood Count 3.38 M/UL (4.20-5.40) L Hemoglobin 9.8 G/DL (12.0-16.0) L Hematocrit 30.4 % (37.0-47.0) L Mean Corpuscular Volume 90 FL (80-99) Mean Corpuscular Hemoglobin 29.1 PG (27.0-31.0) Mean Corpuscular Hemoglobin Concent 32.4 G/DL (32.0-36.0) Red Cell Distribution Width 22.0 % (11.6-14.8) H Platelet Count 174 K/UL (150-450) Mean Platelet Volume 8.4 FL (6.5-10.1) Neutrophils (%) (Auto) % (45.0-75.0) Lymphocytes (%) (Auto) % (20.0-45.0) Monocytes (%) (Auto) % (1.0-10.0) Eosinophils (%) (Auto) % (0.0-3.0) Basophils (%) (Auto) % (0.0-2.0) Differential Total Cells Counted 100 Neutrophils % (Manual) 84 % (45-75) H Lymphocytes % (Manual) 5 % (20-45) L Monocytes % (Manual) 3 % (1-10) Eosinophils % (Manual) 1 % (0-3) Basophils % (Manual) 1 % (0-2) Band Neutrophils 6 % (0-8) Nucleated Red Blood Cells 1 /100 WBC Platelet Estimate Adequate Platelet Morphology Giant Platelets Occasional Polychromasia 1+ Anisocytosis 3+ Tear Drop Cells Occasional Ovalocytes 2+ Erythrocyte Sedimentation Rate 70 MM/HR (0-30) H Reticulocyte Count 2.0 % (0.5-2.0) Sodium Level 140 MMOL/L (136-145) Potassium Level 3.1 MMOL/L (3.5-5.1) L Chloride Level 102 MMOL/L (98-107) Carbon Dioxide Level 27 MMOL/L (21-32) Anion Gap 11 mmol/L (5-15) Blood Urea Nitrogen 15 mg/dL (7-18) Creatinine 0.8 MG/DL (0.55-1.30) Estimat Glomerular Filtration Rate mL/min (>60) Glucose Level 86 MG/DL (74-106) Calcium Level 8.7 MG/DL (8.5-10.1) Phosphorus Level 2.4 MG/DL (2.5-4.9) L Magnesium Level 1.8 MG/DL (1.8-2.4) Total Bilirubin 0.6 MG/DL (0.2-1.0) Aspartate Amino Transf (AST/SGOT) 18 U/L (15-37) Alanine Aminotransferase (ALT/SGPT) 9 U/L (12-78) L Alkaline Phosphatase 82 U/L (46-116) Lactate Dehydrogenase 514 U/L (81-234) H Total Protein 6.3 G/DL (6.4-8.2) L Albumin 2.8 G/DL (3.4-5.0) L Globulin 3.5 g/dL Albumin/Globulin Ratio 0.8 (1.0-2.7) L Prothrombin Time 11.9 SEC (9.30-11.50) H Prothromb Time International Ratio 1.1 (0.9-1.1) Activated Partial Thromboplast Time 29 SEC (23-33) Troponin I 0.000 ng/mL (0.000-0.056) Objective HEAD AND NECK: Mild JVD. LUNGS: Decreased breath sounds. CARDIOVASCULAR: regular S1 and S2 with no gallop or murmur New Pacemaker left subclavian no hematoma or oozing. ABDOMEN: Soft. EXTREMITIES: No pitting edema. River Freitas MD Aug 04, 2018 13:33
--- NOTE | 2018-08-04 13:39 | NUR ---
NURSE NOTES: Per Dr. Edwards, KCl 10meq IV x4 total of 40meq KCL ordered. Will carry out the order as soon as the patient comes back to the floor.
--- NOTE | 2018-08-04 14:05 | Diagnostic Imaging Report ---
Indication: Abdominal pain Technique: Grayscale and duplex Doppler imaging of the abdomen performed. Comparison: None Findings: The liver is unremarkable. Doppler interrogation of the main portal vein shows patency with hepatopedal, monophasic flow. There is no biliary ductal dilitation identified. The CBD measures 6 mm. The gallbladder is unremarkable. There are no gallstones or wall thickening identified. Sonographic levi's sign was negative per technologist. The demonstrated part of the pancreas, aorta and IVC show no abnormalities. Both kidneys appear unremarkable. There is no hydronephrosis. There is a cyst in the spleen with septation measuring about 3 cm. Spleen is normal size. There is no free fluid identified. IMPRESSION: No acute findings. Splenic cyst
--- NOTE | 2018-08-04 14:29 | Hematology/Onc Progress Note ---
Assessment/Plan Assessment/Plan Assessment/Plan ASSESSMENT AND RECOMMENDATIONS # Anemia of chronic disease due to underlying chronic medical issues, multifactorial --> Anemia workup has been ordered, rule out gi bleed - results pending. --> No evidence of hemolysis is noted, peripheral smear has been reviewed. --> Hgb goal >7. Transfuse prn. --> Okay to continue iron x 5 days through 08/06 --> Medications have been reviewed --> low threshold for gi evaluation in case has occult + --> bone marrow biopsy is not indicated given the other more likely causes --> Hgb trend: 9.3--> 9.8 # Polycythemia vera. Cont on hydroxyurea --> obtain jak2 level --> imaging abd us - results reviewed Splenic Cyst. Spleen and Liver normal size. # Vertigo. --> per neuro as needed # Atrial fibrillation with rapid ventricular rate. Cardiology is following, appreciate recs. --> Serial troponin levels will be performed --> started on digoxin for rapid ventricular rate. # Hypertension -->Cont on clonidine # Obstructive sleep apnea. # Coronary artery disease. # Hypercholesteremia. # Congestive heart failure. The time the the note is entered does not reflect the time the patient was examined. I greatly appreciate the consultation. Subjective Allergies: Coded Allergies: No Known Allergies (Unverified , 04/24/18) Subjective Subjective Subjective 08/03: Patient in bed resting, no respiratory distress noticed at this time. Pacemaker generator change on Saturday08/03/18. Stool OB pending. 08/04: awake no distress, seen at 8:00am awaiting procedure. Objective Objective Current Medications Medications (Trade) Dose Ordered Sig/Escobar Route PRN Reason Start Time Stop Time Status Last Admin Dose Admin Acetaminophen (Tylenol) 650 mg Q4H PRN ORAL Mild Pain (Pain Scale 1-3) 08/04/18 13:00 08/04/18 19:00 Acetaminophen (Tylenol) 650 mg Q6H PRN ORAL FHMP 08/04/18 13:30 09/03/18 13:29 Acetaminophen/ Codeine Phosphate (Tylenol #3) 1 tab Q4H PRN ORAL Moderate Pain (Pain Scale 4-6) 08/04/18 13:30 08/11/18 13:29 Amiodarone HCl (Cordarone) 200 mg BID ORAL 07/29/18 18:00 7/18/19 17:59 08/04/18 09:15 Amoxicillin (Amoxil) 500 mg TID ORAL 08/03/18 13:00 08/04/18 23:59 08/04/18 09:15 Atropine Sulfate (Atropine) 0.5 mg Q5M PRN IV BRADYCARDIA 08/04/18 13:00 08/04/18 19:00 Cefazolin Sodium 1 gm/Dextrose 55 ml @ 110 mls/hr Q8HR IVP 08/04/18 14:00 08/11/18 13:59 UNV Dextrose (Dextrose 50%) 25 ml Q30M PRN IV Hypoglycemia 07/29/18 10:45 08/28/18 07:03 Dextrose (Dextrose 50%) 50 ml Q30M PRN IV hypoglycemia 07/29/18 10:45 08/28/18 07:14 Digoxin (Lanoxin) 0.125 mg DAILY ORAL 07/30/18 09:00 08/29/18 08:59 08/04/18 09:16 Diphenhydramine HCl (Benadryl) 25 mg Q15M PRN IVP Itching 08/04/18 13:00 08/04/18 19:00 Escitalopram Oxalate (Lexapro) 10 mg DAILY ORAL 07/30/18 09:00 08/28/18 08:59 08/04/18 09:16 Fentanyl Citrate (Sublimaze 100 mcg/2 mL) 25 mcg Q10M PRN IV Moderate Pain (Pain Scale 4-6) 08/04/18 13:00 08/04/18 19:00 Furosemide (Lasix) 40 mg DAILY ORAL 08/03/18 09:00 09/02/18 08:59 08/03/18 09:12 Hydralazine HCl (Apresoline) 5 mg Q30M PRN IV SBP>160 OR___/DBP>90 OR___ 08/04/18 13:00 08/04/18 19:00 Iron Sucrose 100 mg/Sodium Chloride 60 ml @ 240 mls/hr BEDTIME IV 08/02/18 21:00 08/06/18 21:14 08/03/18 20:51 Lorazepam (Ativan 2mg/ml 1ml) 0.5 mg Q4H PRN IV For Anxiety 07/29/18 11:00 08/05/18 06:59 Metoprolol Tartrate (Lopressor) 50 mg EVERY 12 HOURS ORAL 07/29/18 21:00 08/28/18 08:59 08/04/18 09:16 Morphine Sulfate (Morphine Sulfate) 2 mg Q1H PRN IVP Severe Pain (Pain Scale 7-10) 08/04/18 13:31 08/11/18 13:30 Ondansetron HCl (Zofran) 4 mg Q6H PRN IVP Nausea & Vomiting 08/04/18 13:30 09/03/18 13:29 Polyethylene Glycol (Miralax) 17 gm HSPRN PRN ORAL Constipation 07/29/18 21:00 08/28/18 20:59 Promethazine HCl/ Codeine (Phenergan with Codeine) 5 ml Q6H PRN ORAL For Cough 08/03/18 20:15 09/02/18 20:14 08/03/18 20:51 Sodium Chloride 1,000 ml @ 10 mls/hr Q24H IVLG 08/04/18 12:46 08/04/18 14:45 Zolpidem Tartrate (Ambien) 5 mg HSPRN PRN ORAL Insomnia 07/29/18 21:00 08/05/18 20:59 Last 24 Hour Vital Signs Date Time Temp Pulse Resp B/P (MAP) Pulse Ox O2 Delivery O2 Flow Rate FiO2 08/04/18 14:10 60 17 108/61 99 Room Air 3 08/04/18 13:54 60 15 113/61 100 Room Air 3 08/04/18 13:44 60 21 118/51 100 Room Air 3 08/04/18 13:34 60 15 108/65 100 Room Air 3 08/04/18 13:29 60 16 124/64 100 Simple Mask 6 08/04/18 13:27 59 16 100 08/04/18 13:24 97.3 60 16 119/51 100 Simple Mask 6 08/04/18 12:00 97.7 50 20 92/58 (69) 95 08/04/18 12:00 51 08/04/18 09:16 63 08/04/18 09:16 63 120/71 08/04/18 09:10 63 120/71 (87) 08/04/18 09:00 Room Air 08/04/18 08:00 97.7 55 20 131/63 (85) 95 08/04/18 08:00 53 08/04/18 04:00 60 08/04/18 04:00 97.8 62 17 113/58 (76) 95 08/04/18 00:00 97.7 73 19 121/69 (86) 96 08/04/18 00:00 52 08/03/18 21:00 Room Air 08/03/18 20:51 70 120/71 08/03/18 20:00 69 08/03/18 20:00 97.9 70 19 120/71 (87) 96 08/03/18 16:00 97.2 74 18 136/68 (90) 97 08/03/18 16:00 67 08/03/18 12:00 76 08/03/18 12:00 97.5 72 18 118/70 (86) 98 08/03/18 09:00 Room Air 08/03/18 09:00 56 08/03/18 09:00 56 140/68 08/03/18 08:00 97.8 56 18 140/68 (92) 99 08/03/18 08:00 54 08/03/18 04:00 52 08/03/18 04:00 98.2 52 18 129/81 (97) 98 08/03/18 00:00 97.9 55 18 134/73 (93) 97 08/03/18 00:00 53 08/02/18 21:00 Room Air 08/02/18 20:33 65 143/71 08/02/18 20:00 97.0 60 16 143/71 (95) 97 08/02/18 20:00 60 08/02/18 16:00 98.5 69 18 130/82 (98) 98 08/02/18 16:00 60 Intake and Output 08/03/18 08/04/18 19:00 07:00 Intake Total 840 ml Balance 840 ml Intake Oral 840 ml # Voids 7 2 # Bowel Movements 2 Labs Test 08/02/18 08:25 08/03/18 05:35 08/03/18 14:15 08/04/18 04:50 White Blood Count 7.2 K/UL (4.8-10.8) 7.9 K/UL (4.8-10.8) 8.0 K/UL (4.8-10.8) Red Blood Count 3.75 M/UL (4.20-5.40) 3.25 M/UL (4.20-5.40) 3.38 M/UL (4.20-5.40) Hemoglobin 10.8 G/DL (12.0-16.0) 9.3 G/DL (12.0-16.0) 9.8 G/DL (12.0-16.0) Hematocrit 33.7 % (37.0-47.0) 28.9 % (37.0-47.0) 30.4 % (37.0-47.0) Mean Corpuscular Volume 90 FL (80-99) 89 FL (80-99) 90 FL (80-99) Mean Corpuscular Hemoglobin 28.9 PG (27.0-31.0) 28.7 PG (27.0-31.0) 29.1 PG (27.0-31.0) Mean Corpuscular Hemoglobin Concent 32.2 G/DL (32.0-36.0) 32.3 G/DL (32.0-36.0) 32.4 G/DL (32.0-36.0) Red Cell Distribution Width 22.5 % (11.6-14.8) 21.7 % (11.6-14.8) 22.0 % (11.6-14.8) Platelet Count 207 K/UL (150-450) 188 K/UL (150-450) 174 K/UL (150-450) Mean Platelet Volume 9.4 FL (6.5-10.1) 9.0 FL (6.5-10.1) 8.4 FL (6.5-10.1) Neutrophils (%) (Auto) % (45.0-75.0) % (45.0-75.0) % (45.0-75.0) Lymphocytes (%) (Auto) % (20.0-45.0) % (20.0-45.0) % (20.0-45.0) Monocytes (%) (Auto) % (1.0-10.0) % (1.0-10.0) % (1.0-10.0) Eosinophils (%) (Auto) % (0.0-3.0) % (0.0-3.0) % (0.0-3.0) Basophils (%) (Auto) % (0.0-2.0) % (0.0-2.0) % (0.0-2.0) Differential Total Cells Counted 100 100 100 Neutrophils % (Manual) 92 % (45-75) 81 % (45-75) 84 % (45-75) Lymphocytes % (Manual) 5 % (20-45) 10 % (20-45) 5 % (20-45) Monocytes % (Manual) 2 % (1-10) 4 % (1-10) 3 % (1-10) Eosinophils % (Manual) 1 % (0-3) 0 % (0-3) 1 % (0-3) Basophils % (Manual) 0 % (0-2) 0 % (0-2) 1 % (0-2) Band Neutrophils 0 % (0-8) 5 % (0-8) 6 % (0-8) Platelet Estimate Adequate Adequate Adequate Platelet Morphology Normal Normal Anisocytosis 3+ 3+ 3+ Target Cells Tear Drop Cells 1+ 1+ Occasional Ovalocytes 2+ 2+ 2+ Prothrombin Time 12.0 SEC (9.30-11.50) Prothromb Time International Ratio 1.1 (0.9-1.1) Sodium Level 144 MMOL/L (136-145) 141 MMOL/L (136-145) 140 MMOL/L (136-145) Potassium Level 3.1 MMOL/L (3.5-5.1) 3.1 MMOL/L (3.5-5.1) 3.1 MMOL/L (3.5-5.1) Chloride Level 105 MMOL/L (98-107) 103 MMOL/L (98-107) 102 MMOL/L (98-107) Carbon Dioxide Level 26 MMOL/L (21-32) 28 MMOL/L (21-32) 27 MMOL/L (21-32) Anion Gap 13 mmol/L (5-15) 10 mmol/L (5-15) 11 mmol/L (5-15) Blood Urea Nitrogen 16 mg/dL (7-18) 14 mg/dL (7-18) 15 mg/dL (7-18) Creatinine 0.8 MG/DL (0.55-1.30) 0.8 MG/DL (0.55-1.30) 0.8 MG/DL (0.55-1.30) Estimat Glomerular Filtration Rate mL/min (>60) mL/min (>60) mL/min (>60) Glucose Level 101 MG/DL (74-106) 82 MG/DL (74-106) 86 MG/DL (74-106) Calcium Level 9.0 MG/DL (8.5-10.1) 8.9 MG/DL (8.5-10.1) 8.7 MG/DL (8.5-10.1) Total Bilirubin 0.7 MG/DL (0.2-1.0) 0.6 MG/DL (0.2-1.0) Aspartate Amino Transf (AST/SGOT) 18 U/L (15-37) 18 U/L (15-37) Alanine Aminotransferase (ALT/SGPT) 13 U/L (12-78) 9 U/L (12-78) Alkaline Phosphatase 91 U/L (46-116) 82 U/L (46-116) Pro-B-Type Natriuretic Peptide 4815 pg/mL (0-125) Total Protein 6.9 G/DL (6.4-8.2) 6.3 G/DL (6.4-8.2) Albumin 2.7 G/DL (3.4-5.0) 2.8 G/DL (3.4-5.0) Globulin 4.2 g/dL 3.5 g/dL Albumin/Globulin Ratio 0.6 (1.0-2.7) 0.8 (1.0-2.7) Digoxin Level 1.2 NG/ML (0.9-2.0) 1.4 NG/ML (0.9-2.0) Polychromasia 1+ 1+ Stool Occult Blood Negative (NEGATIVE) Nucleated Red Blood Cells 1 /100 WBC Giant Platelets Occasional Erythrocyte Sedimentation Rate 70 MM/HR (0-30) Reticulocyte Count 2.0 % (0.5-2.0) Phosphorus Level 2.4 MG/DL (2.5-4.9) Magnesium Level 1.8 MG/DL (1.8-2.4) Lactate Dehydrogenase 514 U/L (81-234) Test 6/24/19 09:45 Prothrombin Time 11.9 SEC (9.30-11.50) Prothromb Time International Ratio 1.1 (0.9-1.1) Activated Partial Thromboplast Time 29 SEC (23-33) Troponin I 0.000 ng/mL (0.000-0.056) Height (Feet): 5 Height (Inches): 6.00 Weight (Pounds): 140 Objective Objective PHYSICAL EXAMINATION: VITAL SIGNS: Have been reviewed GENERAL: The patient is a well-developed and well-nourished female, in no apparent distress. HEENT: Eyes, pupils are equal and responsive to light and accommodation. Extraocular movements are intact. NECK: Supple without lymphadenopathy. CHEST: Lungs are clear to auscultation bilaterally without wheezes or rales. CARDIOVASCULAR: Regular rhythm and rate. S1, S2 normal without murmurs, rubs, or gallops. ABDOMEN: Soft, nontender, nondistended. Positive bowel sounds. No evidence of hepatosplenomegaly. Currently, no rebound or guarding noted. EXTREMITIES: Negative for clubbing, cyanosis, edema. RECTAL/GENITAL: Not performed. NEUROLOGIC: Cranial nerves II through XII are grossly intact without focal deficits. Motor strength is 5/5 bilaterally. Deep tendon reflexes are 2+ plantar. Haven Thornton NP Aug 04, 2018 14:29
--- NOTE | 2018-08-04 14:35 | NUR ---
CASE MANAGEMENT:REVIEW 08/04/18 SI: AFIB W/RVR. COPD. CHF 98.0 110 18 120/80 96% ON RA H/H-9.8/30.4 K-3.1 IS: IV ANCEF Q8HRS AMOXIL PO TID LASIX PO QD IV VENOFER QHS LEXAPRO PO QD DIGOXIN PO QD LOPRESSOR PO Q12 : TELEMETRY STATUS DCP: FROM HOME PLAN: PACEMAKER BATTERY CHANGE TODAY BY DR NELSON
--- NOTE | 2018-08-04 14:50 | NUR ---
NURSE NOTES: The patient is safely back to the unit without acute distress or shortness of breath. The patient's vital signs were as follows: 114/62, pulse of 60, SpO2 100%, and body temperature of 97.8. No pain or active bleeding noted on the site of procedure. Will continuously monitor the patient.
--- NOTE | 2018-08-04 14:51 | NUR ---
NURSE NOTES: EKG tracing post-op, application of ice on affected area, apply sling on left arm, and CXR for confirming placement completed at post-op care. Will continue plan of care.
[2018-08-04] MEDS ORDERED: Sodium Chloride for KCL Premix X 4hrs IV SCH (15:00)
--- NOTE | 2018-08-04 15:06 | NUR ---
RD ASSESSMENT & RECOMMENDATIONS SEE CARE ACTIVITY FOR COMPLETE ASSESSMENT DAILY ESTIMATED NEEDS: Needs based on Cardiac/ 61kg 25-30kcal/kg kcals/kg 2992-3332 total kcals 1-1.2 g protein/kg 61-73 g total protein Fluid per MD, on lasix NUTRITION DIAGNOSIS: Decreased sodium needs r/t cardiac history and clinical status as evidenced by pt w/ CHF, elev BNP (30942-> 4815), on lasix. CURRENT DIET:Regular soft easy chew PO DIET RECOMMENDATIONS: Low Sodium/ Soft easy chew ADDITIONAL RECOMMENDATIONS: 1) Recalibrated bed scale wts for accurate CBW 2) Check lytes daily w/ lasix 3) Ensure Enlive TID w/ meals (350kcal/20g prot per bottle) 4) MVI x 1 5) Monitor PO intake closely- remains poor to fair .
--- NOTE | 2018-08-04 15:53 | Diagnostic Imaging Report ---
Indication: Dyspnea Comparison: 07/31/2018 A single view chest radiograph was obtained. Findings: Pulmonary edema has improved since the last occasion. Heart remains enlarged. There is no change otherwise. Pacemaker again noted on the left. IMPRESSION: Improved CHF, currently mild
--- NOTE | 2018-08-04 17:00 | NUR ---
NURSE NOTES: Communicated with MARGE Mendoza regarding possible EGD and/or colonoscopy tomorrow based on Dr. Freitas's note. Will follow up with MARGE Mendoza.
--- NOTE | 2018-08-04 18:46 | NUR ---
NURSE NOTES: Per Dr. Andrade, HIDA scan might be done tomorrow and possible EGD and/or colonoscopy after HIDA scan. Will continue to monitor the patient.
--- NOTE | 2018-08-04 18:47 | General Progress Note ---
Assessment/Plan Assessment/Plan: Assessment - RUQ abd pain - ? Gallbladder, ? PUD, ? other - Anorexia - 10 lb weight loss - anemia - afib - s/p pacer generator change Recommendations - CT scan abd/pelvis --> gallstone vs sludge - check stool OB --> negative - will plan for HIDA / CCK in am - Patient scheduled for EGD Saturday Subjective Allergies: Coded Allergies: No Known Allergies (Unverified , 04/24/18) Subjective above noted seen earlier today for pacemaker generator change today still with abd pain Objective Last 24 Hour Vital Signs Date Time Temp Pulse Resp B/P (MAP) Pulse Ox O2 Delivery O2 Flow Rate FiO2 08/04/18 16:00 60 08/04/18 15:57 97.4 61 18 144/77 (99) 100 08/04/18 15:20 98.0 61 18 125/62 (83) 98 08/04/18 15:05 97.9 60 18 130/62 (84) 98 08/04/18 14:50 97.8 60 18 114/62 (79) 100 08/04/18 14:25 97.8 60 15 114/62 100 Room Air 3 08/04/18 14:10 60 17 108/61 99 Room Air 3 08/04/18 13:54 60 15 113/61 100 Room Air 3 08/04/18 13:44 60 21 118/51 100 Room Air 3 08/04/18 13:34 60 15 108/65 100 Room Air 3 08/04/18 13:29 60 16 124/64 100 Simple Mask 6 08/04/18 13:27 59 16 100 08/04/18 13:24 97.3 60 16 119/51 100 Simple Mask 6 08/04/18 12:00 97.7 50 20 92/58 (69) 95 08/04/18 12:00 51 08/04/18 09:16 63 08/04/18 09:16 63 120/71 08/04/18 09:10 63 120/71 (87) 08/04/18 09:00 Room Air 08/04/18 08:00 97.7 55 20 131/63 (85) 95 08/04/18 08:00 53 08/04/18 04:00 60 08/04/18 04:00 97.8 62 17 113/58 (76) 95 08/04/18 00:00 97.7 73 19 121/69 (86) 96 08/04/18 00:00 52 08/03/18 21:00 Room Air 08/03/18 20:51 70 120/71 08/03/18 20:00 69 08/03/18 20:00 97.9 70 19 120/71 (87) 96 Intake and Output 08/03/18 08/04/18 19:00 07:00 Intake Total 840 ml Balance 840 ml Intake Oral 840 ml # Voids 7 2 # Bowel Movements 2 Laboratory Tests 08/04/18 04:50: White Blood Count 8.0, Red Blood Count 3.38L, Hemoglobin 9.8L, Hematocrit 30.4L , Mean Corpuscular Volume 90, Mean Corpuscular Hemoglobin 29.1, Mean Corpuscular Hemoglobin Concent 32.4, Red Cell Distribution Width 22.0H, Platelet Count 174, Mean Platelet Volume 8.4, Neutrophils (%) (Auto) , Lymphocytes (%) (Auto) , Monocytes (%) (Auto) , Eosinophils (%) (Auto) , Basophils (%) (Auto) , Differential Total Cells Counted 100, Neutrophils % ( Manual) 84H, Lymphocytes % (Manual) 5L, Monocytes % (Manual) 3, Eosinophils % ( Manual) 1, Basophils % (Manual) 1, Band Neutrophils 6, Nucleated Red Blood Cells 1, Platelet Estimate Adequate, Platelet Morphology , Giant Platelets Occasional, Polychromasia 1+, Anisocytosis 3+, Tear Drop Cells Occasional, Ovalocytes 2+, Erythrocyte Sedimentation Rate 70H, Reticulocyte Count 2.0, Sodium Level 140, Potassium Level 3.1L, Chloride Level 102, Carbon Dioxide Level 27, Anion Gap 11, Blood Urea Nitrogen 15, Creatinine 0.8, Estimat Glomerular Filtration Rate , Glucose Level 86, Calcium Level 8.7, Phosphorus Level 2.4L, Magnesium Level 1.8, Total Bilirubin 0.6, Aspartate Amino Transf ( AST/SGOT) 18, Alanine Aminotransferase (ALT/SGPT) 9L, Alkaline Phosphatase 82, Lactate Dehydrogenase 514H, Total Protein 6.3L, Albumin 2.8L, Globulin 3.5, Albumin/Globulin Ratio 0.8L 08/04/18 09:45: Prothrombin Time 11.9H, Prothromb Time International Ratio 1.1, Activated Partial Thromboplast Time 29, Troponin I 0.000 Height (Feet): 5 Height (Inches): 6.00 Weight (Pounds): 140 Objective WDWN NCAT supple CTA RR abd soft ND, (+) mild RUQ TTP no edema Juwan Andrade MD Aug 04, 2018 18:47
--- NOTE | 2018-08-04 19:00 | Internal Med Progress Note ---
Subjective Date of Service: Aug 04, 2018 Physician Name Roshan Edwards Attending Physician Antonio Adrian MD Current Medications Medications (Trade) Dose Ordered Sig/Escobar Route PRN Reason Start Time Stop Time Status Last Admin Dose Admin Acetaminophen (Tylenol) 650 mg Q4H PRN ORAL Mild Pain (Pain Scale 1-3) 08/04/18 13:00 08/04/18 19:00 Acetaminophen (Tylenol) 650 mg Q6H PRN ORAL FHMP 08/04/18 13:30 09/03/18 13:29 Acetaminophen/ Codeine Phosphate (Tylenol #3) 1 tab Q4H PRN ORAL Moderate Pain (Pain Scale 4-6) 08/04/18 13:30 08/11/18 13:29 Amiodarone HCl (Cordarone) 200 mg BID ORAL 07/29/18 18:00 08/28/18 17:59 08/04/18 17:36 Amoxicillin (Amoxil) 500 mg TID ORAL 08/03/18 13:00 08/04/18 23:59 08/04/18 17:36 Atropine Sulfate (Atropine) 0.5 mg Q5M PRN IV BRADYCARDIA 08/04/18 13:00 08/04/18 19:00 Cefazolin Sodium 1 gm/Dextrose 55 ml @ 110 mls/hr Q8HR@0500,1300,2100 IVP 08/04/18 21:00 08/11/18 20:59 Dextrose (Dextrose 50%) 25 ml Q30M PRN IV Hypoglycemia 07/29/18 10:45 08/28/18 07:03 Dextrose (Dextrose 50%) 50 ml Q30M PRN IV hypoglycemia 07/29/18 10:45 08/28/18 07:14 Digoxin (Lanoxin) 0.125 mg DAILY ORAL 07/30/18 09:00 08/29/18 08:59 08/04/18 09:16 Diphenhydramine HCl (Benadryl) 25 mg Q15M PRN IVP Itching 08/04/18 13:00 08/04/18 19:00 Escitalopram Oxalate (Lexapro) 10 mg DAILY ORAL 07/30/18 09:00 08/28/18 08:59 08/04/18 09:16 Fentanyl Citrate (Sublimaze 100 mcg/2 mL) 25 mcg Q10M PRN IV Moderate Pain (Pain Scale 4-6) 08/04/18 13:00 08/04/18 19:00 Furosemide (Lasix) 40 mg DAILY ORAL 08/03/18 09:00 09/02/18 08:59 08/03/18 09:12 Hydralazine HCl (Apresoline) 5 mg Q30M PRN IV SBP>160 OR___/DBP>90 OR___ 08/04/18 13:00 08/04/18 19:00 Iron Sucrose 100 mg/Sodium Chloride 60 ml @ 240 mls/hr BEDTIME IV 08/02/18 21:00 08/06/18 21:14 08/03/18 20:51 Lorazepam (Ativan 2mg/ml 1ml) 0.5 mg Q4H PRN IV For Anxiety 07/29/18 11:00 08/05/18 06:59 Metoprolol Tartrate (Lopressor) 50 mg EVERY 12 HOURS ORAL 07/29/18 21:00 08/28/18 08:59 08/04/18 09:16 Morphine Sulfate (Morphine Sulfate) 2 mg Q1H PRN IVP Severe Pain (Pain Scale 7-10) 08/04/18 13:31 08/11/18 13:30 Ondansetron HCl (Zofran) 4 mg Q6H PRN IVP Nausea & Vomiting 08/04/18 13:30 09/03/18 13:29 Polyethylene Glycol (Miralax) 17 gm HSPRN PRN ORAL Constipation 07/29/18 21:00 08/28/18 20:59 Potassium Chloride 100 ml @ 100 mls/hr Q1H IVPB 08/04/18 15:00 08/04/18 18:59 08/04/18 18:19 Promethazine HCl/ Codeine (Phenergan with Codeine) 5 ml Q6H PRN ORAL For Cough 08/03/18 20:15 09/02/18 20:14 08/03/18 20:51 Sodium Chloride 400 ml @ 100 mls/hr Q4H IV 08/04/18 15:00 08/04/18 18:59 08/04/18 15:10 Zolpidem Tartrate (Ambien) 5 mg HSPRN PRN ORAL Insomnia 07/29/18 21:00 08/05/18 20:59 Allergies: Coded Allergies: No Known Allergies (Unverified , 3/14/19) ROS Limited/Unobtainable: No Constitutional: Reports: no symptoms HEENT: Reports: no symptoms Cardiovascular: Reports: no symptoms Respiratory: Reports: no symptoms Gastrointestinal/Abdominal: Reports: no symptoms Genitourinary: Reports: no symptoms Neurologic/Psychiatric: Reports: no symptoms Subjective 78 YO F admitted with fever and vertigo. Now pneumonia. Cover for Int Germán-Dr Adrian. S/P Pacemaker Battery change on 08/04/18. Objective Last Vital Signs Date Time Temp Pulse Resp B/P (MAP) Pulse Ox O2 Delivery O2 Flow Rate FiO2 08/04/18 16:00 60 08/04/18 15:57 97.4 18 144/77 (99) 100 08/04/18 14:25 Room Air 3 Laboratory Tests Test 08/04/18 04:50 08/04/18 09:45 White Blood Count 8.0 K/UL (4.8-10.8) Red Blood Count 3.38 M/UL (4.20-5.40) L Hemoglobin 9.8 G/DL (12.0-16.0) L Hematocrit 30.4 % (37.0-47.0) L Mean Corpuscular Volume 90 FL (80-99) Mean Corpuscular Hemoglobin 29.1 PG (27.0-31.0) Mean Corpuscular Hemoglobin Concent 32.4 G/DL (32.0-36.0) Red Cell Distribution Width 22.0 % (11.6-14.8) H Platelet Count 174 K/UL (150-450) Mean Platelet Volume 8.4 FL (6.5-10.1) Neutrophils (%) (Auto) % (45.0-75.0) Lymphocytes (%) (Auto) % (20.0-45.0) Monocytes (%) (Auto) % (1.0-10.0) Eosinophils (%) (Auto) % (0.0-3.0) Basophils (%) (Auto) % (0.0-2.0) Differential Total Cells Counted 100 Neutrophils % (Manual) 84 % (45-75) H Lymphocytes % (Manual) 5 % (20-45) L Monocytes % (Manual) 3 % (1-10) Eosinophils % (Manual) 1 % (0-3) Basophils % (Manual) 1 % (0-2) Band Neutrophils 6 % (0-8) Nucleated Red Blood Cells 1 /100 WBC Platelet Estimate Adequate Platelet Morphology Giant Platelets Occasional Polychromasia 1+ Anisocytosis 3+ Tear Drop Cells Occasional Ovalocytes 2+ Erythrocyte Sedimentation Rate 70 MM/HR (0-30) H Reticulocyte Count 2.0 % (0.5-2.0) Sodium Level 140 MMOL/L (136-145) Potassium Level 3.1 MMOL/L (3.5-5.1) L Chloride Level 102 MMOL/L (98-107) Carbon Dioxide Level 27 MMOL/L (21-32) Anion Gap 11 mmol/L (5-15) Blood Urea Nitrogen 15 mg/dL (7-18) Creatinine 0.8 MG/DL (0.55-1.30) Estimat Glomerular Filtration Rate mL/min (>60) Glucose Level 86 MG/DL (74-106) Calcium Level 8.7 MG/DL (8.5-10.1) Phosphorus Level 2.4 MG/DL (2.5-4.9) L Magnesium Level 1.8 MG/DL (1.8-2.4) Total Bilirubin 0.6 MG/DL (0.2-1.0) Aspartate Amino Transf (AST/SGOT) 18 U/L (15-37) Alanine Aminotransferase (ALT/SGPT) 9 U/L (12-78) L Alkaline Phosphatase 82 U/L (46-116) Lactate Dehydrogenase 514 U/L (81-234) H Total Protein 6.3 G/DL (6.4-8.2) L Albumin 2.8 G/DL (3.4-5.0) L Globulin 3.5 g/dL Albumin/Globulin Ratio 0.8 (1.0-2.7) L Prothrombin Time 11.9 SEC (9.30-11.50) H Prothromb Time International Ratio 1.1 (0.9-1.1) Activated Partial Thromboplast Time 29 SEC (23-33) Troponin I 0.000 ng/mL (0.000-0.056) Intake and Output 08/03/18 08/04/18 19:00 07:00 Intake Total 840 ml Balance 840 ml Intake Oral 840 ml # Voids 7 2 # Bowel Movements 2 Objective PHYSICAL EXAMINATION: GENERAL: The patient is a well-developed and well-nourished female, in no apparent distress. HEENT: Eyes, pupils are equal and responsive to light and accommodation. Extraocular movements are intact. NECK: Supple without lymphadenopathy. CHEST: Lungs are clear to auscultation bilaterally without wheezes or rales. CARDIOVASCULAR: Regular rhythm and rate. S1, S2 normal without murmurs, rubs, or gallops. ABDOMEN: Soft, nontender, nondistended. Positive bowel sounds. No evidence of hepatosplenomegaly. Currently, no rebound or guarding noted. EXTREMITIES: Negative for clubbing, cyanosis, edema. RECTAL/GENITAL: Not performed. NEUROLOGIC: Cranial nerves II through XII are grossly intact without focal deficits. Motor strength is 5/5 bilaterally. Deep tendon reflexes are 2+ plantar. Assessment/Plan Assessment/Plan ASSESSMENT: This is an 78-year-old female. 1. Fever. 2. Vertigo. 3. Atrial fibrillation with rapid ventricular rate. 4. Polycythemia vera. 5. Hypertension. 6. Obstructive sleep apnea. 7. Coronary artery disease. 8. Hypercholesteremia. 9. Congestive heart failure. 10. Pneumonia 11. Pacemaker 12. Persistent hypokalemia TREATMENT: 1. Atrial fibrillation/coronary artery disease/congestive heart failure. Cardiology consultation has been obtained with Dr. River Freitas. Serial troponin levels will be performed. BNP is pending. An echocardiogram is pending. The patient has been started on digoxin for rapid ventricular rate. 2. Polycythemia vera. Continue hydroxyurea as above. 3. Hypertension. Continue clonidine as above. 4. Obstructive sleep apnea. 5. Hypercholesterolemia. 6. History of congestive heart failure. 7. Pneumonia/fever A pulmonary consultation has been obtained with Dr Mejia. Continue empiric ceftriaxone 8. S/P Pacemaker battery change Saturday08/04/18-see cardiology note. 9. 40 meq KCL IV today Roshan Edwards MD Aug 04, 2018 19:00
--- NOTE | 2018-08-04 19:22 | NUR ---
HAND-OFF: Report given to IRA Akers. The patient is resting on the bed without acute distress or shortness of breath. The patient's bed in the lowest position, call light in reach, and fall and aspiration precaution reinforced. Endorsed plan of care.
--- NOTE | 2018-08-04 19:25 | NUR ---
NURSE NOTES: Received report from Cameron Alvarez RN. Patient in bed AAO X4 Finnish speaking with some Yoruba noted. No complaints of acute pain or distress at this time; kept clean, dry, and comfortable in bed. Placed on continuous cardiac monitoring per protocol. IV line intact and patent SL. Able to ambulate to the bathroom with assistance. Safety precaution in place; siderails X2 up, call light within reach, bed in lowest position, brakes and alarm on at all times. Needs and wants anticipated and attended. Will continue plan of care and monitor for any changes noted. PM capturing well HIDA CKK Scan scheduled tomorrow 08/05/18 NPO after midnight
[2018-08-04] MEDS: ceFAZolin sod 1 GM in D5W 55 ML IVP SCH ×2 (20:24→21:30)
[2018-08-04] MEDS: Iron Sucrose 100 MG in NS 55 ML IV SCH (21:31)
[2018-08-05] VITALS: BP 146/80
--- NOTE | 2018-08-05 00:15 | Operative Note - Dictated ---
DATE OF OPERATION: 08/04/2018 PACEMAKER GENERATOR CHANGE SURGEON: River Freitas M.D. INDICATION FOR THE PROCEDURE: Pacemaker end of life. PROCEDURE PERFORMED: 1. Explantation of pacemaker, new implantation of pacemaker. 2. Pacemaker programming during initial implant. OPERATIVE REPORT: The patient was brought into operating room in fasting state and after inform consent was obtained. The patient was prepped and draped in usual fashion. Conscious sedation was provided by the anesthesiologist. She received a gram of Ancef within an hour of incision. After prep and drape under sterile condition, a total of 20 mL of lidocaine was given to left prepectoralis area. An incision was made along the left deltopectoral groove. Sharp and blunt dissection was made to the level of the pacemaker and the pacemaker was removed from the pocket and disconnected from the leads. The new pacemaker was then connected to existing leads. The atrial and ventricular pacing and sensing parameters were done to check. The new pacemaker lead was then placed in the existing pocket after the pocket was irrigated with antibiotic solution. The patient's pocket was then closed in three layers using 2-0 Vicryl and Dermabond. The patient suffered no immediate complications from the procedure and was transferred to recovery room in stable condition. FINDINGS: The explanted device post [employer] is [id number], serial number [id number]. Date of implant was May 18, 2010. New pacemaker is from [employer] is L111, serial number is [id number]. The right atrial lead is from [employer], is , serial number [id number]. Date of implant was May 18, 2010. The right ventricular lead is from [employer], , date of implant was May 18, 2010. The P-wave amplitude was 2 millivolts, threshold is 1 volt at 0.4 milliseconds, impedance of 486 ohms. R-wave is 18.3 millivolts, threshold is 1.9 volt at 0.4 milliseconds, impedance of 457 ohms. IMPRESSION: 1. Successful dual-chamber pacemaker generator change. 2. Pacemaker was programmed to lower rate of 60 up to 130. Atrial output is 2 volts at 0.4 milliseconds, RV output is 4 volts at 0.4 milliseconds. River Freitas M.D. DR: BHAVANI JOB#: [id number] CC:
--- NOTE | 2018-08-05 02:49 | NUR ---
HAND-OFF: Report given to Lewis Suarez RN. Patient in stable condition, endorsed plan of care.
--- NOTE | 2018-08-05 02:50 | NUR ---
NURSE NOTES: received pt from Oswald Coronel, pt in bed. no acute distress noted. will continue to monitor for any change in condition.
[2018-08-05 04:00] VITALS: BP_SYST 137
--- NOTE | 2018-08-05 05:00 | NUR ---
NURSE NOTES: pt sleeping, no acute distress noted. pt NPO since midnight. will continue to monitor pt's condition.
[2018-08-05] MEDS: ceFAZolin sod 1 GM in D5W 55 ML IVP SCH ×3 (05:32→21:48)
--- NOTE | 2018-08-05 06:37 | NUR ---
NURSE NOTES: pt remains stable, no change in condition. pt NPO and ready for procedure. bed locked and lowest position, bedside rail up x 2. call light and personal belongings within pt's reach. will endorse plan of care to incoming nurse.
--- NOTE | 2018-08-05 07:20 | NUR ---
HAND-OFF: Report given to Juan Alvarez RN.
--- NOTE | 2018-08-05 07:21 | NUR ---
NURSE NOTES: Received report from IRA Pichardo. The patient is resting on the bed without acute distress or shortness of breath. The patient's bed in the lowest position, call light in reach, and fall and aspiration precaution reinforced. The patient is kept NPO for HIDA scan today. Will continue plan of care.
[2018-08-05 07:22] LABS: BASOPHILS % (AUTO) 1.6 % (0.0-2.0); EOSINOPHILS % (AUTO) 0.7 % (0.0-3.0); HEMATOCRIT 34.5 % (37.0-47.0); HEMOGLOBIN 11.1 G/DL (12.0-16.0); LYMPHOCYTES % (AUTO) 11.6 % (20.0-45.0); MEAN CORPUSCULAR VOLUME 90 FL (80-99); MONOCYTES % (AUTO) 1.7 % (1.0-10.0); NEUTROPHILS % (AUTO) 84.3 % (45.0-75.0); PLATELET COUNT 201 K/UL (150-450); RED BLOOD COUNT 3.84 M/UL (4.20-5.40); RED CELL DISTRIBUTION WIDTH 22.1 % (11.6-14.8); WHITE BLOOD COUNT 9.1 K/UL (4.8-10.8)
[2018-08-05 07:38] LABS: ANION GAP 9 mmol/L (5-15); BLOOD UREA NITROGEN 14 mg/dL (7-18); CALCIUM 9.3 MG/DL (8.5-10.1); CARBON DIOXIDE 28 MMOL/L (21-32); CHLORIDE 105 MMOL/L (98-107); CREATININE 0.9 MG/DL (0.55-1.30); POTASSIUM 4.1 MMOL/L (3.5-5.1); SODIUM 142 MMOL/L (136-145)
[2018-08-05 08:00] VITALS: BP 129/68
--- NOTE | 2018-08-05 08:07 | General Progress Note ---
Assessment/Plan Assessment/Plan: Assessment - RUQ abd pain - ? Gallbladder, ? PUD, ? other - Anorexia - 10 lb weight loss - anemia - afib - s/p pacer generator change Recommendations - CT scan abd/pelvis --> gallstone vs sludge - check stool OB --> negative - HIDA / CCK today - Patient scheduled for EGD Saturday Subjective Allergies: Coded Allergies: No Known Allergies (Unverified , 04/24/18) Subjective no events overnight for HIDA today d/w RN Objective Last 24 Hour Vital Signs Date Time Temp Pulse Resp B/P (MAP) Pulse Ox O2 Delivery O2 Flow Rate FiO2 08/05/18 08:00 97.7 57 18 129/68 (88) 95 08/05/18 04:00 97.7 63 18 137/ 96 08/05/18 04:00 60 08/05/18 00:00 60 08/05/18 00:00 98.2 65 17 146/80 (102) 99 08/04/18 21:00 Room Air 08/04/18 20:23 61 143/74 08/04/18 20:00 98.1 61 18 143/47 (79) 96 08/04/18 20:00 60 08/04/18 16:00 60 08/04/18 15:57 97.4 61 18 144/77 (99) 100 08/04/18 15:20 98.0 61 18 125/62 (83) 98 08/04/18 15:05 97.9 60 18 130/62 (84) 98 08/04/18 14:50 97.8 60 18 114/62 (79) 100 08/04/18 14:25 97.8 60 15 114/62 100 Room Air 3 08/04/18 14:10 60 17 108/61 99 Room Air 3 08/04/18 13:54 60 15 113/61 100 Room Air 3 08/04/18 13:44 60 21 118/51 100 Room Air 3 08/04/18 13:34 60 15 108/65 100 Room Air 3 08/04/18 13:29 60 16 124/64 100 Simple Mask 6 08/04/18 13:27 59 16 100 08/04/18 13:24 97.3 60 16 119/51 100 Simple Mask 6 08/04/18 12:00 97.7 50 20 92/58 (69) 95 6/24/19 12:00 51 08/04/18 09:16 63 08/04/18 09:16 63 120/71 08/04/18 09:10 63 120/71 (87) 08/04/18 09:00 Room Air Intake and Output 08/04/18 08/05/18 19:00 07:00 Intake Total 650 ml 155 ml Output Total 10 ml Balance 640 ml 155 ml Intake Oral 250 ml IV Total 400 ml 155 ml Estimated Blood Loss 10 ml # Voids 7 7 Laboratory Tests 08/04/18 09:45: Prothrombin Time 11.9H, Prothromb Time International Ratio 1.1, Activated Partial Thromboplast Time 29, Troponin I 0.000 08/05/18 06:30: White Blood Count 9.1, Red Blood Count 3.84L, Hemoglobin 11.1L, Hematocrit 34.5L , Mean Corpuscular Volume 90, Mean Corpuscular Hemoglobin 28.9, Mean Corpuscular Hemoglobin Concent 32.1, Red Cell Distribution Width 22.1H, Platelet Count 201, Mean Platelet Volume 10.5H, Neutrophils (%) (Auto) 84.3H, Lymphocytes (%) (Auto) 11.6L, Monocytes (%) (Auto) 1.7, Eosinophils (%) (Auto) 0.7, Basophils (%) (Auto) 1.6, Sodium Level 142, Potassium Level 4.1, Chloride Level 105, Carbon Dioxide Level 28, Anion Gap 9, Blood Urea Nitrogen 14, Creatinine 0.9, Estimat Glomerular Filtration Rate , Glucose Level 89, Calcium Level 9.3 Height (Feet): 5 Height (Inches): 6.00 Weight (Pounds): 140 Objective WDWN NCAT supple CTA RR abd soft ND, (+) mild RUQ TTP no edema Juwan Andrade MD Aug 05, 2018 08:07
[2018-08-05] MEDS: Amiodarone 200mg tab ORAL SCH ×2 (08:24→17:25)
[2018-08-05] MEDS: Digoxin 0.125mg tab ORAL SCH (08:24)
[2018-08-05] MEDS: Metoprolol Tartrate 50mg tab ORAL SCH ×2 (08:25→21:04)
[2018-08-05] MEDS: Furosemide 40mg tab ORAL SCH (08:25)
--- NOTE | 2018-08-05 08:49 | 48 Hour Post Anesthesia Eval ---
Post Anesthesia Evaluation Procedure: Pacemaker battery replacement Date of Evaluation: Aug 05, 2018 Airway: patent Nausea: No Vomiting: No Hydration Status: adequate Cardiopulmonary Status: at baseline Mental Status/LOC: patient returned to baseline Post-Anesthesia Complications: 0 Follow-up care needed: N/A - further care as per primary team Yen Flower MD Aug 05, 2018 08:49
--- NOTE | 2018-08-05 10:14 | NUR ---
NURSE NOTES: The patient went down for HIDA scan with the transporter in a safe manner. The patient was kept NPO since midnight. Off tele order initiated. Intact and patent IV confirmed by the nurse. Addendum: 08/05/18 at 1016 by Surinder Alvarez RN Will continue plan of care as soon as the patient comes back to the floor.
--- NOTE | 2018-08-05 10:40 | Cardiac Electrophysiology PN ---
Assessment/Plan Assessment/Plan 1. Atrial fibrillation with rapid ventricular response. On metoprolol 50 bid, amiodarone 200 mg b.i.d. and digoxin 0.125. Resume Pradaxa after EGD if OK with GI Dig level 1.4 on 08/03/18 2. Status post [employer] pacemaker generator change 08/04/18 as reached EOL on 04/10/18. 3. Hypertension and diastolic dysfunction with BNP>72804 and EF 65%. Continue metoprolol 50 mg b.i.d. and Lasix 40 po daily 4. Polycythemia vera. The patient is on hydroxyurea. 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 6. Abdominal Pain, weight loss. EGD rescheduled for tomorrow DW RN Subjective Subjective No CP or SOB. Had pacer generator change yesterday. HIDA scan pending today Objective Last 24 Hour Vital Signs Date Time Temp Pulse Resp B/P (MAP) Pulse Ox O2 Delivery O2 Flow Rate FiO2 08/05/18 09:00 Room Air 08/05/18 08:25 57 129/68 08/05/18 08:24 57 08/05/18 08:00 97.7 57 18 129/68 (88) 95 08/05/18 08:00 60 08/05/18 04:00 97.7 63 18 137/ 96 08/05/18 04:00 60 08/05/18 00:00 60 08/05/18 00:00 98.2 65 17 146/80 (102) 99 08/04/18 21:00 Room Air 08/04/18 20:23 61 143/74 08/04/18 20:00 98.1 61 18 143/47 (79) 96 08/04/18 20:00 60 08/04/18 16:00 60 08/04/18 15:57 97.4 61 18 144/77 (99) 100 08/04/18 15:20 98.0 61 18 125/62 (83) 98 08/04/18 15:05 97.9 60 18 130/62 (84) 98 08/04/18 14:50 97.8 60 18 114/62 (79) 100 08/04/18 14:25 97.8 60 15 114/62 100 Room Air 3 08/04/18 14:10 60 17 108/61 99 Room Air 3 08/04/18 13:54 60 15 113/61 100 Room Air 3 08/04/18 13:44 60 21 118/51 100 Room Air 3 08/04/18 13:34 60 15 108/65 100 Room Air 3 08/04/18 13:29 60 16 124/64 100 Simple Mask 6 08/04/18 13:27 59 16 100 08/04/18 13:24 97.3 60 16 119/51 100 Simple Mask 6 08/04/18 12:00 97.7 50 20 92/58 (69) 95 08/04/18 12:00 51 Intake and Output 08/04/18 08/05/18 19:00 07:00 Intake Total 650 ml 155 ml Output Total 10 ml Balance 640 ml 155 ml Intake Oral 250 ml IV Total 400 ml 155 ml Estimated Blood Loss 10 ml # Voids 7 7 Laboratory Tests Test 08/05/18 06:30 White Blood Count 9.1 K/UL (4.8-10.8) Red Blood Count 3.84 M/UL (4.20-5.40) L Hemoglobin 11.1 G/DL (12.0-16.0) L Hematocrit 34.5 % (37.0-47.0) L Mean Corpuscular Volume 90 FL (80-99) Mean Corpuscular Hemoglobin 28.9 PG (27.0-31.0) Mean Corpuscular Hemoglobin Concent 32.1 G/DL (32.0-36.0) Red Cell Distribution Width 22.1 % (11.6-14.8) H Platelet Count 201 K/UL (150-450) Mean Platelet Volume 10.5 FL (6.5-10.1) H Neutrophils (%) (Auto) 84.3 % (45.0-75.0) H Lymphocytes (%) (Auto) 11.6 % (20.0-45.0) L Monocytes (%) (Auto) 1.7 % (1.0-10.0) Eosinophils (%) (Auto) 0.7 % (0.0-3.0) Basophils (%) (Auto) 1.6 % (0.0-2.0) Sodium Level 142 MMOL/L (136-145) Potassium Level 4.1 MMOL/L (3.5-5.1) Chloride Level 105 MMOL/L (98-107) Carbon Dioxide Level 28 MMOL/L (21-32) Anion Gap 9 mmol/L (5-15) Blood Urea Nitrogen 14 mg/dL (7-18) Creatinine 0.9 MG/DL (0.55-1.30) Estimat Glomerular Filtration Rate mL/min (>60) Glucose Level 89 MG/DL (74-106) Calcium Level 9.3 MG/DL (8.5-10.1) Objective HEAD AND NECK: Mild JVD. LUNGS: Decreased breath sounds. CARDIOVASCULAR: regular S1 and S2 with no gallop or murmur New Pacemaker left subclavian no hematoma or oozing. ABDOMEN: Soft. EXTREMITIES: No pitting edema. River Freitas MD Aug 05, 2018 10:40
--- NOTE | 2018-08-05 11:22 | Pulmonology Progress Note ---
Assessment/Plan Problems: (1) RUQ abdominal pain (2) Pacemaker (3) COPD (chronic obstructive pulmonary disease) (4) Atrial fibrillation (5) Pulmonary edema (6) Acute encephalopathy (7) CAD (coronary artery disease) (8) KELVIN (obstructive sleep apnea) (9) Peripheral neuropathy Assessment/Plan pacemaker battery was changed yesterday on lasix bid, pt incontinent, difficult to measure output watch bun/creatinine HIDA scan today EGD in am titrate cardiac meds, still tachycardic symptomatic treatment check electrolytes check urine cultures, strep viridance in urine dvt prophylaxis. Subjective ROS Limited/Unobtainable: No Constitutional: Reports: no symptoms Allergies: Coded Allergies: No Known Allergies (Unverified , 04/24/18) Objective Last 24 Hour Vital Signs Date Time Temp Pulse Resp B/P (MAP) Pulse Ox O2 Delivery O2 Flow Rate FiO2 08/05/18 09:00 Room Air 08/05/18 08:25 57 129/68 08/05/18 08:24 57 08/05/18 08:00 97.7 57 18 129/68 (88) 95 08/05/18 08:00 60 08/05/18 04:00 97.7 63 18 137/ 96 08/05/18 04:00 60 08/05/18 00:00 60 08/05/18 00:00 98.2 65 17 146/80 (102) 99 08/04/18 21:00 Room Air 08/04/18 20:23 61 143/74 08/04/18 20:00 98.1 61 18 143/47 (79) 96 08/04/18 20:00 60 08/04/18 16:00 60 08/04/18 15:57 97.4 61 18 144/77 (99) 100 08/04/18 15:20 98.0 61 18 125/62 (83) 98 08/04/18 15:05 97.9 60 18 130/62 (84) 98 08/04/18 14:50 97.8 60 18 114/62 (79) 100 08/04/18 14:25 97.8 60 15 114/62 100 Room Air 3 08/04/18 14:10 60 17 108/61 99 Room Air 3 08/04/18 13:54 60 15 113/61 100 Room Air 3 08/04/18 13:44 60 21 118/51 100 Room Air 3 08/04/18 13:34 60 15 108/65 100 Room Air 3 08/04/18 13:29 60 16 124/64 100 Simple Mask 6 08/04/18 13:27 59 16 100 08/04/18 13:24 97.3 60 16 119/51 100 Simple Mask 6 08/04/18 12:00 97.7 50 20 92/58 (69) 95 08/04/18 12:00 51 Intake and Output 08/04/18 08/05/18 19:00 07:00 Intake Total 650 ml 155 ml Output Total 10 ml Balance 640 ml 155 ml Intake Oral 250 ml IV Total 400 ml 155 ml Estimated Blood Loss 10 ml # Voids 7 7 Objective General Appearance: WD/WN, no acute distress Respiratory/Chest: chest wall non-tender, lungs clear Cardiovascular: normal peripheral pulses, normal rate Abdomen: normal bowel sounds, non distended Extremities: no cyanosis, no clubbing Laboratory Tests 08/05/18 06:30: White Blood Count 9.1, Red Blood Count 3.84L, Hemoglobin 11.1L, Hematocrit 34.5L , Mean Corpuscular Volume 90, Mean Corpuscular Hemoglobin 28.9, Mean Corpuscular Hemoglobin Concent 32.1, Red Cell Distribution Width 22.1H, Platelet Count 201, Mean Platelet Volume 10.5H, Neutrophils (%) (Auto) 84.3H, Lymphocytes (%) (Auto) 11.6L, Monocytes (%) (Auto) 1.7, Eosinophils (%) (Auto) 0.7, Basophils (%) (Auto) 1.6, Sodium Level 142, Potassium Level 4.1, Chloride Level 105, Carbon Dioxide Level 28, Anion Gap 9, Blood Urea Nitrogen 14, Creatinine 0.9, Estimat Glomerular Filtration Rate , Glucose Level 89, Calcium Level 9.3 Current Medications Medications (Trade) Dose Ordered Sig/Escobar Route PRN Reason Start Time Stop Time Status Last Admin Dose Admin Acetaminophen (Tylenol) 650 mg Q6H PRN ORAL FHMP 08/04/18 13:30 09/03/18 13:29 08/04/18 20:23 Acetaminophen/ Codeine Phosphate (Tylenol #3) 1 tab Q4H PRN ORAL Moderate Pain (Pain Scale 4-6) 08/04/18 13:30 08/11/18 13:29 Amiodarone HCl (Cordarone) 200 mg BID ORAL 07/29/18 18:00 08/28/18 17:59 08/05/18 08:24 Cefazolin Sodium 1 gm/Dextrose 55 ml @ 110 mls/hr Q8HR@0500,1300,2100 IVP 08/04/18 21:00 08/11/18 20:59 08/05/18 05:32 Dextrose (Dextrose 50%) 25 ml Q30M PRN IV Hypoglycemia 07/29/18 10:45 08/28/18 07:03 Dextrose (Dextrose 50%) 50 ml Q30M PRN IV hypoglycemia 07/29/18 10:45 08/28/18 07:14 Digoxin (Lanoxin) 0.125 mg DAILY ORAL 07/30/18 09:00 08/29/18 08:59 08/04/18 09:16 Escitalopram Oxalate (Lexapro) 10 mg DAILY ORAL 07/30/18 09:00 08/28/18 08:59 08/05/18 08:25 Furosemide (Lasix) 40 mg DAILY ORAL 08/03/18 09:00 09/02/18 08:59 08/05/18 08:25 Iron Sucrose 100 mg/Sodium Chloride 60 ml @ 240 mls/hr BEDTIME IV 08/02/18 21:00 08/06/18 21:14 08/04/18 21:31 Metoprolol Tartrate (Lopressor) 50 mg EVERY 12 HOURS ORAL 07/29/18 21:00 08/28/18 08:59 08/04/18 20:23 Morphine Sulfate (Morphine Sulfate) 2 mg Q1H PRN IVP Severe Pain (Pain Scale 7-10) 08/04/18 13:31 08/11/18 13:30 Ondansetron HCl (Zofran) 4 mg Q6H PRN IVP Nausea & Vomiting 08/04/18 13:30 09/03/18 13:29 Polyethylene Glycol (Miralax) 17 gm HSPRN PRN ORAL Constipation 07/29/18 21:00 08/28/18 20:59 Promethazine HCl/ Codeine (Phenergan with Codeine) 5 ml Q6H PRN ORAL For Cough 08/03/18 20:15 09/02/18 20:14 08/03/18 20:51 Zolpidem Tartrate (Ambien) 5 mg HSPRN PRN ORAL Insomnia 07/29/18 21:00 08/05/18 20:59 Kelly Mejia MD Aug 05, 2018 11:22
[2018-08-05 12:30] VITALS: BP 122/62
--- NOTE | 2018-08-05 12:30 | NUR ---
NURSE NOTES: The patient safely back to the unit without acute distress or shortness of breath from HIDA scan procedure room. Vital signs has been stable. Will continue plan of care.
--- NOTE | 2018-08-05 12:33 | NUR ---
HIDA scan complete.
--- NOTE | 2018-08-05 13:36 | Hematology/Onc Progress Note ---
Assessment/Plan Assessment/Plan ASSESSMENT AND RECOMMENDATIONS # Anemia of chronic disease due to underlying chronic medical issues, multifactorial --> Anemia workup has been ordered, rule out gi bleed - results pending. --> No evidence of hemolysis is noted, peripheral smear has been reviewed. --> Hgb goal >7. Transfuse prn. --> Okay to continue iron x 5 days through 08/06 --> Medications have been reviewed --> low threshold for gi evaluation in case has occult + --> bone marrow biopsy is not indicated given the other more likely causes --> Hgb trend: 9.3-->11.1 # Polycythemia vera. Cont on hydroxyurea --> obtain jak2 level --> imaging abd us ordered - Splenomegaly. 3 cm cyst within the spleen probably complex with at least one or 2 septations. Trace right pleural effusion. Gallbladder sludge versus stones. # Vertigo. --> per neuro as needed # Atrial fibrillation with rapid ventricular rate. Cardiology is following, appreciate recs. --> Serial troponin levels will be performeD --> started on digoxin for rapid ventricular rate. # Hypertension. Cont on clonidine # Obstructive sleep apnea. # Coronary artery disease. # Hypercholesteremia. # Congestive heart failure. The time the the note is entered does not reflect the time the patient was examined. I greatly appreciate the consultation. Subjective Hematologic/Lymphatic: Reports: anemia Allergies: Coded Allergies: No Known Allergies (Unverified , 04/24/18) All Systems: reviewed and negative except above Subjective 08/03: Patient in bed resting, no respiratory distress noticed at this time. Pacemaker generator change on Saturday08/03/18. Stool OB pending. 08/05: US abd shows Splenomegaly. HIDA scan for today. Stool OB negative. Blood cx negative. Objective Objective Current Medications Medications (Trade) Dose Ordered Sig/Escobar Route PRN Reason Start Time Stop Time Status Last Admin Dose Admin Acetaminophen (Tylenol) 650 mg Q6H PRN ORAL FHMP 08/04/18 13:30 09/03/18 13:29 08/04/18 20:23 Acetaminophen/ Codeine Phosphate (Tylenol #3) 1 tab Q4H PRN ORAL Moderate Pain (Pain Scale 4-6) 08/04/18 13:30 08/11/18 13:29 Amiodarone HCl (Cordarone) 200 mg BID ORAL 07/29/18 18:00 08/28/18 17:59 08/05/18 08:24 Cefazolin Sodium 1 gm/Dextrose 55 ml @ 110 mls/hr Q8HR@0500,1300,2100 IVP 08/04/18 21:00 08/11/18 20:59 08/05/18 13:30 Dextrose (Dextrose 50%) 25 ml Q30M PRN IV Hypoglycemia 07/29/18 10:45 08/28/18 07:03 Dextrose (Dextrose 50%) 50 ml Q30M PRN IV hypoglycemia 07/29/18 10:45 08/28/18 07:14 Digoxin (Lanoxin) 0.125 mg DAILY ORAL 07/30/18 09:00 08/29/18 08:59 08/04/18 09:16 Escitalopram Oxalate (Lexapro) 10 mg DAILY ORAL 07/30/18 09:00 08/28/18 08:59 08/05/18 08:25 Furosemide (Lasix) 40 mg DAILY ORAL 08/03/18 09:00 09/02/18 08:59 08/05/18 08:25 Iron Sucrose 100 mg/Sodium Chloride 60 ml @ 240 mls/hr BEDTIME IV 08/02/18 21:00 08/06/18 21:14 08/04/18 21:31 Metoprolol Tartrate (Lopressor) 50 mg EVERY 12 HOURS ORAL 07/29/18 21:00 08/28/18 08:59 08/04/18 20:23 Morphine Sulfate (Morphine Sulfate) 2 mg Q1H PRN IVP Severe Pain (Pain Scale 7-10) 08/04/18 13:31 08/11/18 13:30 Ondansetron HCl (Zofran) 4 mg Q6H PRN IVP Nausea & Vomiting 08/04/18 13:30 09/03/18 13:29 Polyethylene Glycol (Miralax) 17 gm HSPRN PRN ORAL Constipation 07/29/18 21:00 08/28/18 20:59 Promethazine HCl/ Codeine (Phenergan with Codeine) 5 ml Q6H PRN ORAL For Cough 08/03/18 20:15 09/02/18 20:14 08/03/18 20:51 Zolpidem Tartrate (Ambien) 5 mg HSPRN PRN ORAL Insomnia 07/29/18 21:00 08/05/18 20:59 Last 24 Hour Vital Signs Date Time Temp Pulse Resp B/P (MAP) Pulse Ox O2 Delivery O2 Flow Rate FiO2 08/05/18 12:30 97.5 62 18 122/62 (82) 97 08/05/18 09:00 Room Air 08/05/18 08:25 57 129/68 08/05/18 08:24 57 08/05/18 08:00 97.7 57 18 129/68 (88) 95 08/05/18 08:00 60 08/05/18 04:00 97.7 63 18 137/ 96 08/05/18 04:00 60 08/05/18 00:00 60 08/05/18 00:00 98.2 65 17 146/80 (102) 99 08/04/18 21:00 Room Air 08/04/18 20:23 61 143/74 08/04/18 20:00 98.1 61 18 143/47 (79) 96 08/04/18 20:00 60 08/04/18 16:00 60 08/04/18 15:57 97.4 61 18 144/77 (99) 100 08/04/18 15:20 98.0 61 18 125/62 (83) 98 08/04/18 15:05 97.9 60 18 130/62 (84) 98 08/04/18 14:50 97.8 60 18 114/62 (79) 100 08/04/18 14:25 97.8 60 15 114/62 100 Room Air 3 08/04/18 14:10 60 17 108/61 99 Room Air 3 08/04/18 13:54 60 15 113/61 100 Room Air 3 08/04/18 13:44 60 21 118/51 100 Room Air 3 08/04/18 13:34 60 15 108/65 100 Room Air 3 08/04/18 13:29 60 16 124/64 100 Simple Mask 6 08/04/18 13:27 59 16 100 08/04/18 13:24 97.3 60 16 119/51 100 Simple Mask 6 08/04/18 12:00 97.7 50 20 92/58 (69) 95 08/04/18 12:00 51 08/04/18 09:16 63 08/04/18 09:16 63 120/71 08/04/18 09:10 63 120/71 (87) 08/04/18 09:00 Room Air 08/04/18 08:00 97.7 55 20 131/63 (85) 95 08/04/18 08:00 53 08/04/18 04:00 60 08/04/18 04:00 97.8 62 17 113/58 (76) 95 08/04/18 00:00 97.7 73 19 121/69 (86) 96 08/04/18 00:00 52 08/03/18 21:00 Room Air 08/03/18 20:51 70 120/71 08/03/18 20:00 69 08/03/18 20:00 97.9 70 19 120/71 (87) 96 08/03/18 16:00 97.2 74 18 136/68 (90) 97 08/03/18 16:00 67 Intake and Output 08/04/18 08/05/18 19:00 07:00 Intake Total 650 ml 155 ml Output Total 10 ml Balance 640 ml 155 ml Intake Oral 250 ml IV Total 400 ml 155 ml Estimated Blood Loss 10 ml # Voids 7 7 Labs Test 08/03/18 05:35 08/03/18 14:15 08/04/18 04:50 08/04/18 09:45 White Blood Count 7.9 K/UL (4.8-10.8) 8.0 K/UL (4.8-10.8) Red Blood Count 3.25 M/UL (4.20-5.40) 3.38 M/UL (4.20-5.40) Hemoglobin 9.3 G/DL (12.0-16.0) 9.8 G/DL (12.0-16.0) Hematocrit 28.9 % (37.0-47.0) 30.4 % (37.0-47.0) Mean Corpuscular Volume 89 FL (80-99) 90 FL (80-99) Mean Corpuscular Hemoglobin 28.7 PG (27.0-31.0) 29.1 PG (27.0-31.0) Mean Corpuscular Hemoglobin Concent 32.3 G/DL (32.0-36.0) 32.4 G/DL (32.0-36.0) Red Cell Distribution Width 21.7 % (11.6-14.8) 22.0 % (11.6-14.8) Platelet Count 188 K/UL (150-450) 174 K/UL (150-450) Mean Platelet Volume 9.0 FL (6.5-10.1) 8.4 FL (6.5-10.1) Neutrophils (%) (Auto) % (45.0-75.0) % (45.0-75.0) Lymphocytes (%) (Auto) % (20.0-45.0) % (20.0-45.0) Monocytes (%) (Auto) % (1.0-10.0) % (1.0-10.0) Eosinophils (%) (Auto) % (0.0-3.0) % (0.0-3.0) Basophils (%) (Auto) % (0.0-2.0) % (0.0-2.0) Differential Total Cells Counted 100 100 Neutrophils % (Manual) 81 % (45-75) 84 % (45-75) Lymphocytes % (Manual) 10 % (20-45) 5 % (20-45) Monocytes % (Manual) 4 % (1-10) 3 % (1-10) Eosinophils % (Manual) 0 % (0-3) 1 % (0-3) Basophils % (Manual) 0 % (0-2) 1 % (0-2) Band Neutrophils 5 % (0-8) 6 % (0-8) Platelet Estimate Adequate Adequate Platelet Morphology Normal Polychromasia 1+ 1+ Anisocytosis 3+ 3+ Tear Drop Cells 1+ Occasional Ovalocytes 2+ 2+ Sodium Level 141 MMOL/L (136-145) 140 MMOL/L (136-145) Potassium Level 3.1 MMOL/L (3.5-5.1) 3.1 MMOL/L (3.5-5.1) Chloride Level 103 MMOL/L (98-107) 102 MMOL/L (98-107) Carbon Dioxide Level 28 MMOL/L (21-32) 27 MMOL/L (21-32) Anion Gap 10 mmol/L (5-15) 11 mmol/L (5-15) Blood Urea Nitrogen 14 mg/dL (7-18) 15 mg/dL (7-18) Creatinine 0.8 MG/DL (0.55-1.30) 0.8 MG/DL (0.55-1.30) Estimat Glomerular Filtration Rate mL/min (>60) mL/min (>60) Glucose Level 82 MG/DL (74-106) 86 MG/DL (74-106) Calcium Level 8.9 MG/DL (8.5-10.1) 8.7 MG/DL (8.5-10.1) Digoxin Level 1.4 NG/ML (0.9-2.0) Stool Occult Blood Negative (NEGATIVE) Nucleated Red Blood Cells 1 /100 WBC Giant Platelets Occasional Erythrocyte Sedimentation Rate 70 MM/HR (0-30) Reticulocyte Count 2.0 % (0.5-2.0) Phosphorus Level 2.4 MG/DL (2.5-4.9) Magnesium Level 1.8 MG/DL (1.8-2.4) Total Bilirubin 0.6 MG/DL (0.2-1.0) Aspartate Amino Transf (AST/SGOT) 18 U/L (15-37) Alanine Aminotransferase (ALT/SGPT) 9 U/L (12-78) Alkaline Phosphatase 82 U/L (46-116) Lactate Dehydrogenase 514 U/L (81-234) Total Protein 6.3 G/DL (6.4-8.2) Albumin 2.8 G/DL (3.4-5.0) Globulin 3.5 g/dL Albumin/Globulin Ratio 0.8 (1.0-2.7) Prothrombin Time 11.9 SEC (9.30-11.50) Prothromb Time International Ratio 1.1 (0.9-1.1) Activated Partial Thromboplast Time 29 SEC (23-33) Troponin I 0.000 ng/mL (0.000-0.056) Test 08/05/18 06:30 White Blood Count 9.1 K/UL (4.8-10.8) Red Blood Count 3.84 M/UL (4.20-5.40) Hemoglobin 11.1 G/DL (12.0-16.0) Hematocrit 34.5 % (37.0-47.0) Mean Corpuscular Volume 90 FL (80-99) Mean Corpuscular Hemoglobin 28.9 PG (27.0-31.0) Mean Corpuscular Hemoglobin Concent 32.1 G/DL (32.0-36.0) Red Cell Distribution Width 22.1 % (11.6-14.8) Platelet Count 201 K/UL (150-450) Mean Platelet Volume 10.5 FL (6.5-10.1) Neutrophils (%) (Auto) 84.3 % (45.0-75.0) Lymphocytes (%) (Auto) 11.6 % (20.0-45.0) Monocytes (%) (Auto) 1.7 % (1.0-10.0) Eosinophils (%) (Auto) 0.7 % (0.0-3.0) Basophils (%) (Auto) 1.6 % (0.0-2.0) Sodium Level 142 MMOL/L (136-145) Potassium Level 4.1 MMOL/L (3.5-5.1) Chloride Level 105 MMOL/L (98-107) Carbon Dioxide Level 28 MMOL/L (21-32) Anion Gap 9 mmol/L (5-15) Blood Urea Nitrogen 14 mg/dL (7-18) Creatinine 0.9 MG/DL (0.55-1.30) Estimat Glomerular Filtration Rate mL/min (>60) Glucose Level 89 MG/DL (74-106) Calcium Level 9.3 MG/DL (8.5-10.1) Height (Feet): 5 Height (Inches): 6.00 Weight (Pounds): 140 Objective PHYSICAL EXAMINATION: VITAL SIGNS: Have been reviewed GENERAL: The patient is a well-developed and well-nourished female, in no apparent distress. HEENT: Eyes, pupils are equal and responsive to light and accommodation. Extraocular movements are intact. NECK: Supple without lymphadenopathy. CHEST: Lungs are clear to auscultation bilaterally without wheezes or rales. CARDIOVASCULAR: Regular rhythm and rate. S1, S2 normal without murmurs, rubs, or gallops. ABDOMEN: Soft, nontender, nondistended. Positive bowel sounds. No evidence of hepatosplenomegaly. Currently, no rebound or guarding noted. EXTREMITIES: Negative for clubbing, cyanosis, edema. RECTAL/GENITAL: Not performed. NEUROLOGIC: Cranial nerves II through XII are grossly intact without focal deficits. Motor strength is 5/5 bilaterally. Deep tendon reflexes are 2+ plantar. Best Kaplan MD Aug 05, 2018 13:36
--- NOTE | 2018-08-05 13:51 | Diagnostic Imaging Report ---
Indication: Abdominal Pain Technique: 5.5 mCi of technetium 99 m-Choletec was injected intravenously. Planar imaging of the abdomen was then performed every 5 minutes up to 30 minutes and every 10 minutes up to one hour. Oblique views were also obtained. 1.27 mcg of cholecystokinin given slowly over 3 minutes at 60 minutes post tracer injection. Imaging continued for an additional 30 minutes for calculation of gallbladder ejection fraction. Findings: There is prompt uptake within the liver with good washout of radiotracer from the liver on subsequent imaging. There is excretion into the biliary ducts. Gallbladder activity is present in a timely fashion indicating patency of the cystic duct. Bowel activity is demonstrated in a timely fashion indicating patency of the common bile duct. Gallbladder ejection fraction is calculated at 18%, which is low. (Normal greater than 35%) Impression: Low gallbladder ejection fraction. Consider gallbladder or biliary dyskinesia.
--- NOTE | 2018-08-05 15:54 | Infectious Diseases Prog Note ---
Assessment/Plan Assessment/Plan Assessment/Plan: 78 yo female with PMHx of HTN, CHF, CAD s/p NV s/p pacemaker , KELVIN, HLD and Afib who presented to the ED on 07/30/18 with fever. UTI UCx - Strep viridens Fever resoved No leukcoytosis Bcx neg Afib Anemia HTN CHF CAD s/p NV s/p pacemaker -08/04 SP Status post [employer] pacemaker generator change 08/04/18 KELVIN HLD PLAN: - On Zainab-op Ancef (after PPM generator change) -08/04 Amoxicillin #2 - 08/03 S/P Ceftriaxone #6 - Monitor CBC and Temps Thank you for this consult. We will continue to follow the patient during this hospitalization Subjective Allergies: Coded Allergies: No Known Allergies (Unverified , 04/24/18) Subjective aFebrile no leukocytosis Bcx Neg Objective Vital Signs Last 24 Hour Vital Signs Date Time Temp Pulse Resp B/P (MAP) Pulse Ox O2 Delivery O2 Flow Rate FiO2 08/05/18 12:30 97.5 62 18 122/62 (82) 97 08/05/18 09:00 Room Air 08/05/18 08:25 57 129/68 08/05/18 08:24 57 08/05/18 08:00 97.7 57 18 129/68 (88) 95 08/05/18 08:00 60 08/05/18 04:00 97.7 63 18 137/ 96 08/05/18 04:00 60 08/05/18 00:00 60 08/05/18 00:00 98.2 65 17 146/80 (102) 99 08/04/18 21:00 Room Air 08/04/18 20:23 61 143/74 08/04/18 20:00 98.1 61 18 143/47 (79) 96 08/04/18 20:00 60 08/04/18 16:00 60 08/04/18 15:57 97.4 61 18 144/77 (99) 100 Height (Feet): 5 Height (Inches): 6.00 Weight (Pounds): 140 Objective Gen: NAD HEENT: NCAT, MMM, EOMI, PERRL, No Oral lesion, no scleral icterus NECK: full range of motion, supple, no meningismus, No LAD, No JVD LUNGS: CTAB, No W/C, No Accessory muscle use CARDS: RRR, S1, S2, No M/R/G, ABD: Soft, NT, ND, No R/G, + BS, No HSM, No Masses : Deferred Ext: C/C/E, Pulses 2+ B/L (DP, Rad): NEURO: A/O x 4, Strength and Sensation Grossly intact PSYCH: Normal mood and affect SKIN: Warm/dry, No rashes Laboratory Tests Test 08/05/18 06:30 White Blood Count 9.1 K/UL (4.8-10.8) Red Blood Count 3.84 M/UL (4.20-5.40) L Hemoglobin 11.1 G/DL (12.0-16.0) L Hematocrit 34.5 % (37.0-47.0) L Mean Corpuscular Volume 90 FL (80-99) Mean Corpuscular Hemoglobin 28.9 PG (27.0-31.0) Mean Corpuscular Hemoglobin Concent 32.1 G/DL (32.0-36.0) Red Cell Distribution Width 22.1 % (11.6-14.8) H Platelet Count 201 K/UL (150-450) Mean Platelet Volume 10.5 FL (6.5-10.1) H Neutrophils (%) (Auto) 84.3 % (45.0-75.0) H Lymphocytes (%) (Auto) 11.6 % (20.0-45.0) L Monocytes (%) (Auto) 1.7 % (1.0-10.0) Eosinophils (%) (Auto) 0.7 % (0.0-3.0) Basophils (%) (Auto) 1.6 % (0.0-2.0) Sodium Level 142 MMOL/L (136-145) Potassium Level 4.1 MMOL/L (3.5-5.1) Chloride Level 105 MMOL/L (98-107) Carbon Dioxide Level 28 MMOL/L (21-32) Anion Gap 9 mmol/L (5-15) Blood Urea Nitrogen 14 mg/dL (7-18) Creatinine 0.9 MG/DL (0.55-1.30) Estimat Glomerular Filtration Rate mL/min (>60) Glucose Level 89 MG/DL (74-106) Calcium Level 9.3 MG/DL (8.5-10.1) Current Medications Medications (Trade) Dose Ordered Sig/Escobar Route PRN Reason Start Time Stop Time Status Last Admin Dose Admin Acetaminophen (Tylenol) 650 mg Q6H PRN ORAL FHMP 08/04/18 13:30 09/03/18 13:29 08/04/18 20:23 Acetaminophen/ Codeine Phosphate (Tylenol #3) 1 tab Q4H PRN ORAL Moderate Pain (Pain Scale 4-6) 08/04/18 13:30 08/11/18 13:29 Amiodarone HCl (Cordarone) 200 mg BID ORAL 07/29/18 18:00 08/28/18 17:59 08/05/18 08:24 Cefazolin Sodium 1 gm/Dextrose 55 ml @ 110 mls/hr Q8HR@0500,1300,2100 IVP 08/04/18 21:00 08/11/18 20:59 08/05/18 13:30 Dextrose (Dextrose 50%) 25 ml Q30M PRN IV Hypoglycemia 07/29/18 10:45 08/28/18 07:03 Dextrose (Dextrose 50%) 50 ml Q30M PRN IV hypoglycemia 07/29/18 10:45 08/28/18 07:14 Digoxin (Lanoxin) 0.125 mg DAILY ORAL 07/30/18 09:00 08/29/18 08:59 08/04/18 09:16 Escitalopram Oxalate (Lexapro) 10 mg DAILY ORAL 07/30/18 09:00 08/28/18 08:59 08/05/18 08:25 Furosemide (Lasix) 40 mg DAILY ORAL 08/03/18 09:00 09/02/18 08:59 08/05/18 08:25 Iron Sucrose 100 mg/Sodium Chloride 60 ml @ 240 mls/hr BEDTIME IV 08/02/18 21:00 08/06/18 21:14 08/04/18 21:31 Metoprolol Tartrate (Lopressor) 50 mg EVERY 12 HOURS ORAL 07/29/18 21:00 08/28/18 08:59 08/04/18 20:23 Morphine Sulfate (Morphine Sulfate) 2 mg Q1H PRN IVP Severe Pain (Pain Scale 7-10) 08/04/18 13:31 08/11/18 13:30 Ondansetron HCl (Zofran) 4 mg Q6H PRN IVP Nausea & Vomiting 08/04/18 13:30 09/03/18 13:29 Polyethylene Glycol (Miralax) 17 gm HSPRN PRN ORAL Constipation 07/29/18 21:00 08/28/18 20:59 Promethazine HCl/ Codeine (Phenergan with Codeine) 5 ml Q6H PRN ORAL For Cough 08/03/18 20:15 09/02/18 20:14 08/03/18 20:51 Zolpidem Tartrate (Ambien) 5 mg HSPRN PRN ORAL Insomnia 07/29/18 21:00 08/05/18 20:59 Alejandrina Arrieta M.D. Aug 05, 2018 15:54
[2018-08-05 16:00] VITALS: BP 129/73
--- NOTE | 2018-08-05 16:32 | Internal Med Progress Note ---
Subjective Date of Service: Aug 05, 2018 Physician Name Roshan Edwards Attending Physician Antonio Adrian MD Current Medications Medications (Trade) Dose Ordered Sig/Escobar Route PRN Reason Start Time Stop Time Status Last Admin Dose Admin Acetaminophen (Tylenol) 650 mg Q6H PRN ORAL FHMP 08/04/18 13:30 09/03/18 13:29 08/04/18 20:23 Acetaminophen/ Codeine Phosphate (Tylenol #3) 1 tab Q4H PRN ORAL Moderate Pain (Pain Scale 4-6) 08/04/18 13:30 08/11/18 13:29 Amiodarone HCl (Cordarone) 200 mg BID ORAL 07/29/18 18:00 08/28/18 17:59 08/05/18 08:24 Cefazolin Sodium 1 gm/Dextrose 55 ml @ 110 mls/hr Q8HR@0500,1300,2100 IVP 08/04/18 21:00 08/11/18 20:59 08/05/18 13:30 Dextrose (Dextrose 50%) 25 ml Q30M PRN IV Hypoglycemia 07/29/18 10:45 08/28/18 07:03 Dextrose (Dextrose 50%) 50 ml Q30M PRN IV hypoglycemia 07/29/18 10:45 08/28/18 07:14 Digoxin (Lanoxin) 0.125 mg DAILY ORAL 07/30/18 09:00 08/29/18 08:59 08/04/18 09:16 Escitalopram Oxalate (Lexapro) 10 mg DAILY ORAL 07/30/18 09:00 08/28/18 08:59 08/05/18 08:25 Furosemide (Lasix) 40 mg DAILY ORAL 08/03/18 09:00 09/02/18 08:59 08/05/18 08:25 Iron Sucrose 100 mg/Sodium Chloride 60 ml @ 240 mls/hr BEDTIME IV 08/02/18 21:00 08/06/18 21:14 08/04/18 21:31 Metoprolol Tartrate (Lopressor) 50 mg EVERY 12 HOURS ORAL 07/29/18 21:00 08/28/18 08:59 08/04/18 20:23 Morphine Sulfate (Morphine Sulfate) 2 mg Q1H PRN IVP Severe Pain (Pain Scale 7-10) 08/04/18 13:31 08/11/18 13:30 Ondansetron HCl (Zofran) 4 mg Q6H PRN IVP Nausea & Vomiting 08/04/18 13:30 09/03/18 13:29 Polyethylene Glycol (Miralax) 17 gm HSPRN PRN ORAL Constipation 07/29/18 21:00 08/28/18 20:59 Promethazine HCl/ Codeine (Phenergan with Codeine) 5 ml Q6H PRN ORAL For Cough 08/03/18 20:15 09/02/18 20:14 08/03/18 20:51 Zolpidem Tartrate (Ambien) 5 mg HSPRN PRN ORAL Insomnia 07/29/18 21:00 08/05/18 20:59 Allergies: Coded Allergies: No Known Allergies (Unverified , 04/24/18) ROS Limited/Unobtainable: No Constitutional: Reports: no symptoms HEENT: Reports: no symptoms Cardiovascular: Reports: no symptoms Respiratory: Reports: no symptoms Gastrointestinal/Abdominal: Reports: abdominal pain Genitourinary: Reports: no symptoms Neurologic/Psychiatric: Reports: no symptoms Subjective 78 YO F admitted with fever and vertigo. Now pneumonia. Cover for Int Germán-Dr Adrian. S/P Pacemaker Battery change on 08/04/18. Objective Last Vital Signs Date Time Temp Pulse Resp B/P (MAP) Pulse Ox O2 Delivery O2 Flow Rate FiO2 08/05/18 16:00 61 08/05/18 16:00 97.4 18 129/73 (91) 98 08/05/18 09:00 Room Air 08/04/18 14:25 3 Laboratory Tests Test 08/05/18 06:30 White Blood Count 9.1 K/UL (4.8-10.8) Red Blood Count 3.84 M/UL (4.20-5.40) L Hemoglobin 11.1 G/DL (12.0-16.0) L Hematocrit 34.5 % (37.0-47.0) L Mean Corpuscular Volume 90 FL (80-99) Mean Corpuscular Hemoglobin 28.9 PG (27.0-31.0) Mean Corpuscular Hemoglobin Concent 32.1 G/DL (32.0-36.0) Red Cell Distribution Width 22.1 % (11.6-14.8) H Platelet Count 201 K/UL (150-450) Mean Platelet Volume 10.5 FL (6.5-10.1) H Neutrophils (%) (Auto) 84.3 % (45.0-75.0) H Lymphocytes (%) (Auto) 11.6 % (20.0-45.0) L Monocytes (%) (Auto) 1.7 % (1.0-10.0) Eosinophils (%) (Auto) 0.7 % (0.0-3.0) Basophils (%) (Auto) 1.6 % (0.0-2.0) Sodium Level 142 MMOL/L (136-145) Potassium Level 4.1 MMOL/L (3.5-5.1) Chloride Level 105 MMOL/L (98-107) Carbon Dioxide Level 28 MMOL/L (21-32) Anion Gap 9 mmol/L (5-15) Blood Urea Nitrogen 14 mg/dL (7-18) Creatinine 0.9 MG/DL (0.55-1.30) Estimat Glomerular Filtration Rate mL/min (>60) Glucose Level 89 MG/DL (74-106) Calcium Level 9.3 MG/DL (8.5-10.1) Intake and Output 08/04/18 08/05/18 19:00 07:00 Intake Total 650 ml 155 ml Output Total 10 ml Balance 640 ml 155 ml Intake Oral 250 ml IV Total 400 ml 155 ml Estimated Blood Loss 10 ml # Voids 7 7 Objective PHYSICAL EXAMINATION: GENERAL: The patient is a well-developed and well-nourished female, in no apparent distress. HEENT: Eyes, pupils are equal and responsive to light and accommodation. Extraocular movements are intact. NECK: Supple without lymphadenopathy. CHEST: Lungs are clear to auscultation bilaterally without wheezes or rales. CARDIOVASCULAR: Regular rhythm and rate. S1, S2 normal without murmurs, rubs, or gallops. ABDOMEN: Soft, nontender, nondistended. Positive bowel sounds. No evidence of hepatosplenomegaly. Currently, no rebound or guarding noted. EXTREMITIES: Negative for clubbing, cyanosis, edema. RECTAL/GENITAL: Not performed. NEUROLOGIC: Cranial nerves II through XII are grossly intact without focal deficits. Motor strength is 5/5 bilaterally. Deep tendon reflexes are 2+ plantar. Assessment/Plan Assessment/Plan ASSESSMENT: This is an 78-year-old female. 1. Fever. 2. Vertigo. 3. Atrial fibrillation with rapid ventricular rate. 4. Polycythemia vera. 5. Hypertension. 6. Obstructive sleep apnea. 7. Coronary artery disease. 8. Hypercholesteremia. 9. Congestive heart failure. 10. Pneumonia 11. Pacemaker 12. Persistent hypokalemia 13. right upper quadrant pain TREATMENT: 1. Atrial fibrillation/coronary artery disease/congestive heart failure. Cardiology consultation has been obtained with Dr. River Freitas. Serial troponin levels will be performed. BNP is pending. An echocardiogram is pending. The patient has been started on digoxin for rapid ventricular rate. 2. Polycythemia vera. Continue hydroxyurea as above. 3. Hypertension. Continue clonidine as above. 4. Obstructive sleep apnea. 5. Hypercholesterolemia. 6. History of congestive heart failure. 7. Pneumonia/fever A pulmonary consultation has been obtained with Dr Mejia. Continue empiric ceftriaxone 8. S/P Pacemaker battery change Saturday08/04/18-see cardiology note. 9. CT abdomen and HIDA=gallbladder sludge vs stone-await surgery consult Roshan Edwards MD Aug 05, 2018 16:31
--- NOTE | 2018-08-05 18:26 | Consultation ---
History of Present Illness General Date patient seen: Aug 05, 2018 Reason for Hospitalization: Generalized Weakness Present Illness HPI This is a very pleasant 78-year-old female who presented with generalized weakness feeling unwell and fevers. On admission was noted to be febrile with abdominal discomfort and abnormal labs. Patient was admitted for care and management. Continues to have abdominal pain. Ultrasound identified a normal gallbladder without stones or gallbladder wall thickening. HIDA scan was ordered which identified a decreased ejection fraction with considerations for biliary dyskinesia. Surgery called to evaluate. Patient seen, patient evaluated, chart reviewed. Patient states she continues to have pain mainly with palpation in the right upper quadrant. Scheduled for EGD tomorrow Allergies: Coded Allergies: No Known Allergies (Unverified , 04/24/18) Medication History Scheduled Amiodarone Hcl (Amiodarone Hcl), 200 MG ORAL ilia, (Reported) Dabigatran Etexilate Mesylate* (Pradaxa*), 150 MG PO Q12H, (Reported) Escitalopram Oxalate* (Lexapro*), 10 MG ORAL DAILY, (Reported) Gabapentin (Neurontin), 400 MG ORAL THREE TIMES A DAY Gabapentin* (Gabapentin*), 400 MG ORAL THREE TIMES A DAY, (Reported) Gabapentin* (Gabapentin*), 400 MG ORAL THREE TIMES A DAY, (Reported) Lisinopril (Lisinopril*), 20 MG ORAL BID, (Reported) Metoprolol Tartrate* (Metoprolol Tartrate*), 50 MG ORAL EVERY 12 HOURS, ( Reported) Metoprolol Tartrate* (Metoprolol Tartrate*), 50 MG ORAL EVERY 12 HOURS, ( Reported) Mirtazapine* (Mirtazapine*), 15 MG ORAL BEDTIME, (Reported) Mirtazapine* (Mirtazapine*), 7.5 MG ORAL BEDTIME, (Reported) Omeprazole (Omeprazole), 20 MG ORAL DAILY, (Reported) Scheduled PRN Clonidine Hcl* (Catapres*), 0.1 MG ORAL EVERY 8 HOURS PRN for SBP >170, ( Reported) Diphenhydramine Hcl* (Benadryl*), Unknown Dose ORAL Q6H PRN for Itching, ( Reported) Discontinued Medications Acetaminophen (Tylenol), 650 MG ORAL Q6H PRN for Prn Pain/Headache/Temp > 101 Discontinued Reason: Pt stopped taking med Amiodarone Hcl* (Cordarone*), 200 MG ORAL DAILY, (Reported) Discontinued Reason: Pt stopped taking med Calcium Carbonate ([id number]), 500 MG PO DAILY, (Reported) Discontinued Reason: Pt stopped taking med Calcium Carbonate (Calcium Carbonate), 500 MG PO DAILY, (Reported) Discontinued Reason: Pt stopped taking med Capsaicin (Capsaicin), 1 APPLIC TP BID Discontinued Reason: Pt stopped taking med Cephalexin (Cephalexin), 500 MG ORAL FOUR TIMES A DAY Discontinued Reason: Pt stopped taking med Clonidine Hcl* (Catapres*), 0.1 MG ORAL EVERY 8 HOURS, (Reported) Discontinued Reason: Pt stopped taking med Dabigatran Etexilate Mesylate (Pradaxa), 150 MG PO Q12HR, (Reported) Discontinued Reason: Pt stopped taking med Diphenhydramine Hcl (Banophen), 25 MG PO DAILY, (Reported) Discontinued Reason: Pt stopped taking med Doxycycline Hyclate (Doxycycline Hyclate), 100 MG ORAL EVERY 12 HOURS Discontinued Reason: Pt stopped taking med Furosemide* (Lasix*), 40 MG ORAL DAILY, (Reported) Discontinued Reason: Pt stopped taking med Furosemide* (Lasix*), 40 MG ORAL DAILY, (Reported) Discontinued Reason: Pt stopped taking med Gabapentin* (Gabapentin*), 100 MG ORAL QAM AND 300MG PO QHS, (Reported) Discontinued Reason: Prescription changed Hydroxyurea* (Hydrea*), 500 MG ORAL DAILY Discontinued Reason: Pt stopped taking med Lisinopril* (Zestril*), 20 MG ORAL BID, (Reported) Discontinued Reason: Pt stopped taking med Pot Chloride/Pot Bicarb/Cit Ac (Potassium Cl 25 Meq Tab Eff), 20 MEQ PO DAILY, ( Reported) Discontinued Reason: Pt stopped taking med Potassium Chloride (Potassium Chloride), 20 MEQ ORAL DAILY, (Reported) Discontinued Reason: Pt stopped taking med Silver Sulfadiazine (Silvadene), 20 GM TP BID Discontinued Reason: Pt stopped taking med Silver Sulfadiazine (Silver Sulfadiazine), 1 APPLIC TOPIC DAILY Discontinued Reason: Pt stopped taking med Thiamine Hcl (Vitamin B1*), 100 MG ORAL DAILY, (Reported) Discontinued Reason: Pt stopped taking med Thiamine Hcl* (Vitamin B-1*), 100 MG ORAL DAILY, (Reported) Discontinued Reason: Pt stopped taking med Patient History History Provided By: Patient, Medical Record, PMD Healthcare decision maker Resuscitation status Full Code Advanced Directive on File No Past Medical/Surgical History Past Medical/Surgical History: (1) Pacemaker (2) Acute encephalopathy (3) RUQ abdominal pain (4) Generalized weakness (5) Pulmonary edema (6) ACS (acute coronary syndrome) (7) Epigastric abdominal pain (8) Head injury, acute, without loss of consciousness (9) Pyelonephritis (10) CAD (coronary artery disease) (11) COPD (chronic obstructive pulmonary disease) (12) Hypercholesterolemia (13) positional vertigo (14) KELVIN (obstructive sleep apnea) (15) Peripheral neuropathy (16) UTI (urinary tract infection) (17) Atrial fibrillation (18) Polycythemia vera (19) CHF (congestive heart failure) (20) Anemia (21) Malnutrition (22) Episode of generalized weakness Review of Systems Review of Symptoms General ROS: no weight loss or fever Psychological ROS: no depression or mood changes, no memory loss Ophthalmic ROS: no visual changes or eye irritation ENT ROS: no nasal congestion, hearing loss, dizziness Allergy and Immunology ROS: no allergic symptoms or urticaria Hematological and Lymphatic ROS: no swollen glands, unusual bleeding or bruising Endocrine ROS: no polyuria, polydipsia, weight changes, temperature intolerance Respiratory ROS: no cough, shortness of breath, or wheezing Cardiovascular ROS: no chest pain or dyspnea on exertion Gastrointestinal ROS: abdominal pain, no bright red blood in stool. Musculoskeletal ROS: no myalgias or arthralgias Neurological ROS: no TIA or stroke symptoms Dermatological ROS: no new or changing skin lesions, rashes or pruritis Physical Exam Physical Exam General appearance: alert, cooperative, no distress, appears stated age Head: Normocephalic, without obvious abnormality, atraumatic Eyes: conjunctivae/corneas clear. PERRL, EOM's intact. Fundi benign Throat: Lips, mucosa, and tongue normal. Teeth and gums normal Neck: supple, symmetrical, trachea midline, no adenopathy, thyroid: not enlarged, symmetric, no tenderness/mass/nodules, no carotid bruit and no JVD Lungs: clear to auscultation bilaterally Heart: regular rate and rhythm, S1, S2 normal, no murmur, click, rub or gallop Abdomen: soft, ruq tender. Bowel sounds normal. No masses, no organomegaly Extremities: extremities normal, atraumatic, no cyanosis or edema Pulses: 2+ and symmetric Skin: Skin color, texture, turgor normal. No rashes or lesions Neurologic: Grossly normal Last 24 Hour Vital Signs Date Time Temp Pulse Resp B/P (MAP) Pulse Ox O2 Delivery O2 Flow Rate FiO2 08/05/18 16:00 61 08/05/18 16:00 97.4 65 18 129/73 (91) 98 08/05/18 12:30 97.5 62 18 122/62 (82) 97 08/05/18 09:00 Room Air 08/05/18 08:25 57 129/68 08/05/18 08:24 57 08/05/18 08:00 97.7 57 18 129/68 (88) 95 08/05/18 08:00 60 08/05/18 04:00 97.7 63 18 137/ 96 08/05/18 04:00 60 08/05/18 00:00 60 08/05/18 00:00 98.2 65 17 146/80 (102) 99 08/04/18 21:00 Room Air 08/04/18 20:23 61 143/74 08/04/18 20:00 98.1 61 18 143/47 (79) 96 08/04/18 20:00 60 Intake and Output 08/04/18 08/05/18 19:00 07:00 Intake Total 650 ml 155 ml Output Total 10 ml Balance 640 ml 155 ml Intake Oral 250 ml IV Total 400 ml 155 ml Estimated Blood Loss 10 ml # Voids 7 7 Laboratory Tests Test 08/05/18 06:30 White Blood Count 9.1 K/UL (4.8-10.8) Red Blood Count 3.84 M/UL (4.20-5.40) L Hemoglobin 11.1 G/DL (12.0-16.0) L Hematocrit 34.5 % (37.0-47.0) L Mean Corpuscular Volume 90 FL (80-99) Mean Corpuscular Hemoglobin 28.9 PG (27.0-31.0) Mean Corpuscular Hemoglobin Concent 32.1 G/DL (32.0-36.0) Red Cell Distribution Width 22.1 % (11.6-14.8) H Platelet Count 201 K/UL (150-450) Mean Platelet Volume 10.5 FL (6.5-10.1) H Neutrophils (%) (Auto) 84.3 % (45.0-75.0) H Lymphocytes (%) (Auto) 11.6 % (20.0-45.0) L Monocytes (%) (Auto) 1.7 % (1.0-10.0) Eosinophils (%) (Auto) 0.7 % (0.0-3.0) Basophils (%) (Auto) 1.6 % (0.0-2.0) Sodium Level 142 MMOL/L (136-145) Potassium Level 4.1 MMOL/L (3.5-5.1) Chloride Level 105 MMOL/L (98-107) Carbon Dioxide Level 28 MMOL/L (21-32) Anion Gap 9 mmol/L (5-15) Blood Urea Nitrogen 14 mg/dL (7-18) Creatinine 0.9 MG/DL (0.55-1.30) Estimat Glomerular Filtration Rate mL/min (>60) Glucose Level 89 MG/DL (74-106) Calcium Level 9.3 MG/DL (8.5-10.1) Height (Feet): 5 Height (Inches): 6.00 Weight (Pounds): 140 Medications Current Medications Medications (Trade) Dose Ordered Sig/Escobar Route PRN Reason Start Time Stop Time Status Last Admin Dose Admin Acetaminophen (Tylenol) 650 mg Q6H PRN ORAL FHMP 08/04/18 13:30 09/03/18 13:29 08/04/18 20:23 Acetaminophen/ Codeine Phosphate (Tylenol #3) 1 tab Q4H PRN ORAL Moderate Pain (Pain Scale 4-6) 08/04/18 13:30 08/11/18 13:29 Amiodarone HCl (Cordarone) 200 mg BID ORAL 07/29/18 18:00 08/28/18 17:59 08/05/18 17:25 Cefazolin Sodium 1 gm/Dextrose 55 ml @ 110 mls/hr Q8HR@0500,1300,2100 IVP 08/04/18 21:00 08/11/18 20:59 08/05/18 13:30 Dextrose (Dextrose 50%) 25 ml Q30M PRN IV Hypoglycemia 07/29/18 10:45 08/28/18 07:03 Dextrose (Dextrose 50%) 50 ml Q30M PRN IV hypoglycemia 07/29/18 10:45 08/28/18 07:14 Digoxin (Lanoxin) 0.125 mg DAILY ORAL 07/30/18 09:00 08/29/18 08:59 08/04/18 09:16 Escitalopram Oxalate (Lexapro) 10 mg DAILY ORAL 07/30/18 09:00 08/28/18 08:59 08/05/18 08:25 Furosemide (Lasix) 40 mg DAILY ORAL 08/03/18 09:00 09/02/18 08:59 08/05/18 08:25 Iron Sucrose 100 mg/Sodium Chloride 60 ml @ 240 mls/hr BEDTIME IV 08/02/18 21:00 08/06/18 21:14 08/04/18 21:31 Metoprolol Tartrate (Lopressor) 50 mg EVERY 12 HOURS ORAL 07/29/18 21:00 08/28/18 08:59 08/04/18 20:23 Morphine Sulfate (Morphine Sulfate) 2 mg Q1H PRN IVP Severe Pain (Pain Scale 7-10) 08/04/18 13:31 08/11/18 13:30 Ondansetron HCl (Zofran) 4 mg Q6H PRN IVP Nausea & Vomiting 08/04/18 13:30 09/03/18 13:29 Polyethylene Glycol (Miralax) 17 gm HSPRN PRN ORAL Constipation 07/29/18 21:00 08/28/18 20:59 Promethazine HCl/ Codeine (Phenergan with Codeine) 5 ml Q6H PRN ORAL For Cough 08/03/18 20:15 09/02/18 20:14 08/03/18 20:51 Zolpidem Tartrate (Ambien) 5 mg HSPRN PRN ORAL Insomnia 07/29/18 21:00 08/05/18 20:59 Assessment/Plan Problem List: (1) RUQ abdominal pain Assessment & Plan: This is a 78-year-old female with right upper quadrant abdominal pain, normal ultrasound, abnormal HIDA with potential biliary dyskinesia. Patient admitted with fevers which have since resolved. Currently no nausea vomiting fever or chills. LFTs okay. On examination right upper quadrant tenderness. Patient scheduled to have a EGD tomorrow. N.p.o. IV fluids Will await EGD results prior to further considerations of cholecystectomy. Trend labs. Thank you for this consultation we will follow with recommendations ICD Codes: R10.11 - Right upper quadrant pain SNOMED: 441708026 (2) Pacemaker ICD Codes: Z95.0 - Presence of cardiac pacemaker SNOMED: 124214721 (3) Acute encephalopathy ICD Codes: G93.40 - Encephalopathy, unspecified SNOMED: 39127108, 350535074 (4) Generalized weakness ICD Codes: R53.1 - Weakness SNOMED: 79733666 (5) Pulmonary edema ICD Codes: J81.1 - Chronic pulmonary edema SNOMED: 34372566 (6) ACS (acute coronary syndrome) ICD Codes: I20.0 - Unstable angina SNOMED: 099327369 (7) Epigastric abdominal pain ICD Codes: R10.13 - Epigastric abdominal pain SNOMED: 23520972 (8) Head injury, acute, without loss of consciousness ICD Codes: S09.90XA - Unspecified injury of head, initial encounter SNOMED: 285808906 (9) Pyelonephritis ICD Codes: N12 - Tubulo-interstitial nephritis, not specified as acute or chronic SNOMED: 81705887 (10) CAD (coronary artery disease) ICD Codes: I25.10 - Atherosclerotic heart disease of [place] coronary artery without angina pectoris SNOMED: 17259703 (11) COPD (chronic obstructive pulmonary disease) ICD Codes: J44.9 - Chronic obstructive pulmonary disease, unspecified SNOMED: 50136352 (12) Hypercholesterolemia ICD Codes: E78.00 - Pure hypercholesterolemia, unspecified SNOMED: 30056494 (13) positional vertigo (14) KELVIN (obstructive sleep apnea) ICD Codes: G47.33 - Obstructive sleep apnea (adult) (pediatric) SNOMED: 67728340 (15) Peripheral neuropathy ICD Codes: G62.9 - Polyneuropathy, unspecified SNOMED: 850289949 (16) UTI (urinary tract infection) ICD Codes: N39.0 - Urinary tract infection, site not specified SNOMED: 62978499 (17) Atrial fibrillation ICD Codes: I48.91 - Unspecified atrial fibrillation SNOMED: 02714430 (18) Polycythemia vera ICD Codes: D45 - Polycythemia vera SNOMED: 834152370 (19) CHF (congestive heart failure) ICD Codes: I50.9 - Heart failure, unspecified SNOMED: 80353146 (20) Anemia ICD Codes: D64.9 - Anemia, unspecified SNOMED: 307935500 (21) Malnutrition ICD Codes: E46 - Unspecified protein-calorie malnutrition SNOMED: 90421557 (22) Episode of generalized weakness ICD Codes: R53.1 - Weakness SNOMED: 99261398 Errol Estrada Aug 05, 2018 18:26
--- NOTE | 2018-08-05 19:30 | NUR ---
HAND-OFF: Report given to IRA Nieves. The patient is resting on the bed without acute distress or shortness of breath. The patient's bed in the lowest position, call light in reach, and fall and aspiration precaution reinforced. Endorsed NPO since midnight for EGD. Endorsed plan of care.
--- NOTE | 2018-08-05 19:35 | NUR ---
NURSE NOTES: Received report from IRA Armenta. Pt is awake and resting in bed. In no acute distress. IV line intact and patent. Bed in lowest position, call light within reach. Will continue plan of care.
[2018-08-05 20:00] VITALS: BP 105/70
--- NOTE | 2018-08-05 21:00 | NUR ---
NURSE NOTES: Noted with swelling and redness on left antecubital area. Very tender to touch. Applied warm compress and elevated on a pillow. Will contact
[2018-08-05] MEDS: Iron Sucrose 100 MG in NS 55 ML IV SCH (21:04)
[2018-08-06] VITALS (10 sets, daily range): BP systolic 92–138; BP diastolic 55–69
[2018-08-06] MEDS: ceFAZolin sod 1 GM in D5W 55 ML IVP SCH ×3 (05:19→22:29)
[2018-08-06] MEDS ORDERED: LR 1000ml 1,000 ML IVLG SCH (06:39)
--- NOTE | 2018-08-06 06:39 | Anethesia Preoperative Eval ---
Anesthesia Pre-op PMH/ROS General Date of Evaluation: Aug 06, 2018 Anesthesiologist: Steve ASA Score: ASA 3 Mallampati Score Class I : Soft palate, uvula, fauces, pillars visible Class II: Soft palate, uvula, fauces visible Class III: Soft palate, base of uvula visible Class IV: Only hard plate visible Mallampati Classification: Class II Surgeon: Raymond Diagnosis: Abodminal pain Surgical Procedure: EGD Anesthesia History: none Family History: no anesthesia problems Allergies: Coded Allergies: No Known Allergies (Unverified , 04/24/18) Patient NPO?: Yes NPO Date: Aug 04, 2018 NPO Time: 0000 Past Medical History Cardiovascular: Reports: HTN, arrhythmia - -afib s/p pacemaker placement 2 days ago; Denies: CAD, [place], valve dz, other Pulmonary: Denies: asthma, COPD, KELVIN, other Gastrointestinal/Genitourinary: Reports: GERD; Denies: CRI, ESRD, other Neurologic/Psychiatric: Reports: dementia - mild; Denies: CVA, depression/anxiety, TIA, other Endocrine: Reports: DM, hypothyroidism; Denies: steroids, other HEENT: Denies: cataract (L), cataract (R), glaucoma, [place] (L), [place] (R), other Hematology/Immune: Reports: anemia - chronic, other - polycythemia; Denies: DVT, bleeding disorder Musculoskeletal/Integumentary: Reports: DJD; Denies: OA, RA, DDD, edema, other PSxH Narrative: Pacemaker placement Anesthesia Pre-op Phys. Exam Physician Exam Last Vital Signs Date Time Temp Pulse Resp B/P (MAP) Pulse Ox O2 Delivery O2 Flow Rate FiO2 08/06/18 04:00 61 08/06/18 04:00 97.7 18 138/69 (92) 98 08/05/18 21:00 Room Air 08/04/18 14:25 3 Constitutional: NAD Cardiovascular: RRR Respiratory: CTA Airway Exam Mallampati Score: Class II MO: limited Neck: stiff ROM: limited Teeth: missing Anesthesia Pre-op A/P Labs see chart Studies Pre-op Studies: EKG - paced Risk Assessment & Plan Assessment: ASA III Plan: MAC Status Change Before Surgery: No Pre-Antibiotics Drug: N/A Yen Flower MD Aug 06, 2018 06:39
[2018-08-06] MEDS ORDERED: DiphenhydrAMINE 50mg/ml Inj IVP PRN (06:45)
--- NOTE | 2018-08-06 07:21 | NUR ---
HAND-OFF: Report given to Marimar.
--- NOTE | 2018-08-06 07:25 | NUR ---
NURSE NOTES: Received report from Ezequiel/RN, Patient is asleep, lying semi-garcia, resting comfortably, No acute distress/SOB noted. IV checked, Patent, no bleeding or infiltration noted. Bed in low position and locked, Call light within reach. Belonging in reach. Will continue plan of care.
--- NOTE | 2018-08-06 07:50 | NUR ---
NURSE NOTES: Patient went to GI lab for EGD
[2018-08-06] MEDS ORDERED: Propofol 200mg/20ml IV ONE (08:00)
--- NOTE | 2018-08-06 08:02 | Pre-Procedure Note/Attestation ---
Pre-Procedure Note/Attestation Complete Prior to Procedure Planned Procedure: not applicable Procedure Narrative: egd Indications for Procedure Pre-Operative Diagnosis: abd pain Attestation I attest that I discussed the nature of the procedure; its benefits; risks and complications; and alternatives (and the risks and benefits of such alternatives ), prior to the procedure, with the patient (or the patient's legal inside technical sales representative). I attest that, if there was a reasonable possibility of needing a blood transfusion, the patient (or the patient's legal inside technical sales representative) was given the [facility] standardized written summary, pursuant to the [employer]uf[employer] [place]uridia Blood Safety Act ([place] Health and Safety Code # 1645, as amended). I attest that I re-evaluated the patient just prior to the surgery and that there has been no change in the patient's H&P, except as documented below: Juwan Andrade MD Aug 06, 2018 08:02
--- NOTE | 2018-08-06 08:02 | General Progress Note ---
Assessment/Plan Assessment/Plan: Assessment - RUQ abd pain - ? Gallbladder, ? PUD, ? other - Anorexia - 10 lb weight loss - anemia - afib - s/p pacer generator change Recommendations - CT scan abd/pelvis --> gallstone vs sludge - check stool OB --> negative - HIDA / CCK today - Patient scheduled for EGD Saturday Subjective Allergies: Coded Allergies: No Known Allergies (Unverified , 04/24/18) Subjective no events overnight for HIDA today d/w RN Objective Last 24 Hour Vital Signs Date Time Temp Pulse Resp B/P (MAP) Pulse Ox O2 Delivery O2 Flow Rate FiO2 08/06/18 04:00 61 08/06/18 04:00 97.7 61 18 138/69 (92) 98 08/06/18 00:00 60 08/06/18 00:00 97.4 60 18 122/66 (84) 98 08/05/18 21:04 72 110/71 08/05/18 21:00 Room Air 08/05/18 20:00 97.4 72 18 105/70 (82) 98 08/05/18 20:00 72 08/05/18 16:00 61 08/05/18 16:00 97.4 65 18 129/73 (91) 98 08/05/18 12:30 97.5 62 18 122/62 (82) 97 08/05/18 09:00 Room Air 08/05/18 08:25 57 129/68 08/05/18 08:24 57 Intake and Output 08/05/18 08/06/18 18:59 06:59 # Voids 2 4 Height (Feet): 5 Height (Inches): 5.00 Weight (Pounds): 132 Objective WDWN NCAT supple CTA RR abd soft ND, (+) mild RUQ TTP no edema Juwan Andrade MD Aug 06, 2018 08:02
[2018-08-06] MEDS ORDERED: Midazolam 2mg/2ml Inj ONE (08:08)
[2018-08-06] MEDS ORDERED: NS 500ML IVPB ONE (08:10)
--- NOTE | 2018-08-06 08:20 | General Progress Note ---
Assessment/Plan Assessment/Plan: Assessment - RUQ abd pain - seems improved, ? Gallbladder, ? PUD, ? other - (L) antecubital fossa phlebitis - Anorexia - 10 lb weight loss - anemia - afib - s/p pacer generator change Recommendations - CT scan abd/pelvis --> gallstone vs sludge - check stool OB --> negative - HIDA / CCK --> decreased EF - For EGD today - Abx per ID POST PROCEDURE ADDENDUM Normal EGD Will resume PO diet Will d/w surgery Subjective Allergies: Coded Allergies: No Known Allergies (Unverified , 04/24/18) Subjective above noted NPO for EGD less abd pain - says only hurts during MD exam HIDA noted - decreased EF c/o (L) arm pain Objective Last 24 Hour Vital Signs Date Time Temp Pulse Resp B/P (MAP) Pulse Ox O2 Delivery O2 Flow Rate FiO2 08/06/18 04:00 61 08/06/18 04:00 97.7 61 18 138/69 (92) 98 08/06/18 00:00 60 08/06/18 00:00 97.4 60 18 122/66 (84) 98 08/05/18 21:04 72 110/71 08/05/18 21:00 Room Air 08/05/18 20:00 97.4 72 18 105/70 (82) 98 08/05/18 20:00 72 08/05/18 16:00 61 08/05/18 16:00 97.4 65 18 129/73 (91) 98 08/05/18 12:30 97.5 62 18 122/62 (82) 97 08/05/18 09:00 Room Air 08/05/18 08:25 57 129/68 08/05/18 08:24 57 Intake and Output 08/05/18 08/06/18 18:59 06:59 # Voids 2 4 Height (Feet): 5 Height (Inches): 5.00 Weight (Pounds): 132 Objective WDWN NCAT supple CTA RR abd soft ND, ? minimal TTP RUQ no edema (+) (L) anticubital fossa redness, induration, and TTP Juwan Andrade MD Aug 06, 2018 08:20
--- NOTE | 2018-08-06 08:36 | Immediate Post-Op Evaluation ---
Immediate Post-Op Evalulation Immediate Post-Op Evalulation Procedure: EGD Date of Evaluation: Aug 06, 2018 Time of Evaluation: 08:38 IV Fluids: 50 Blood Products: 0 Estimated Blood Loss: 0 Urinary Output: 0 Blood Pressure Systolic: 124 Blood Pressure Diastolic: 66 Pulse Rate: 79 Respiratory Rate: 17 O2 Sat by Pulse Oximetry: 100 Temperature (Fahrenheit): 97.6 Pain Score (1-10): 0 Nausea: No Vomiting: No Complications 0 Patient Status: awake, reacts, patent, none Hydration Status: adequate Drug: N/A Yen Flower MD Aug 06, 2018 08:36
--- NOTE | 2018-08-06 08:37 | 48 Hour Post Anesthesia Eval ---
Post Anesthesia Evaluation Procedure: EGD Date of Evaluation: Aug 06, 2018 Airway: patent Nausea: No Vomiting: No Hydration Status: adequate Cardiopulmonary Status: at baseline Mental Status/LOC: patient returned to baseline Post-Anesthesia Complications: 0 Follow-up care needed: N/A - further care as per primary team Yen Flower MD Aug 06, 2018 08:37
[2018-08-06] MEDS: Metoprolol Tartrate 50mg tab ORAL SCH ×3 (09:00→21:11)
[2018-08-06] MEDS: Furosemide 40mg tab ORAL SCH (09:28)
[2018-08-06] MEDS: Digoxin 0.125mg tab ORAL SCH (09:28)
[2018-08-06] MEDS: Amiodarone 200mg tab ORAL SCH ×2 (09:28→18:32)
--- NOTE | 2018-08-06 10:00 | Pulmonology Progress Note ---
Assessment/Plan Problems: (1) RUQ abdominal pain (2) Pacemaker (3) COPD (chronic obstructive pulmonary disease) (4) Atrial fibrillation (5) Pulmonary edema (6) Acute encephalopathy (7) CAD (coronary artery disease) (8) KELVIN (obstructive sleep apnea) (9) Peripheral neuropathy Assessment/Plan pacemaker battery was changed on lasix bid, pt incontinent, difficult to measure output watch bun/creatinine HIDA scan "Low gallbladder ejection fraction. Consider gallbladder or biliary dyskinesia" titrate cardiac meds, still tachycardic symptomatic treatment check electrolytes dvt prophylaxis. Subjective ROS Limited/Unobtainable: No Constitutional: Reports: no symptoms HEENT: Repors: no symptoms Respiratory: Reports: no symptoms Cardiovascular: Reports: no symptoms Allergies: Coded Allergies: No Known Allergies (Unverified , 04/24/18) Objective Last 24 Hour Vital Signs Date Time Temp Pulse Resp B/P (MAP) Pulse Ox O2 Delivery O2 Flow Rate FiO2 08/06/18 09:28 72 08/06/18 09:10 97.5 72 18 96/63 (74) 98 08/06/18 09:00 72 96/63 08/06/18 09:00 Room Air 08/06/18 08:55 97.8 82 13 109/61 18 Nasal Cannula 3 08/06/18 08:44 84 17 133/65 18 Nasal Cannula 3 08/06/18 08:39 71 17 114/61 99 Nasal Cannula 3 08/06/18 08:36 79 17 100 08/06/18 08:33 97.6 79 17 124/66 100 Nasal Cannula 3 08/06/18 04:00 61 08/06/18 04:00 97.7 61 18 138/69 (92) 98 08/06/18 00:00 60 08/06/18 00:00 97.4 60 18 122/66 (84) 98 08/05/18 21:04 72 110/71 08/05/18 21:00 Room Air 08/05/18 20:00 97.4 72 18 105/70 (82) 98 08/05/18 20:00 72 08/05/18 16:00 61 08/05/18 16:00 97.4 65 18 129/73 (91) 98 08/05/18 12:30 97.5 62 18 122/62 (82) 97 Intake and Output 08/05/18 08/06/18 18:59 06:59 # Voids 2 4 Objective General Appearance: WD/WN, no acute distress Respiratory/Chest: chest wall non-tender, lungs clear Cardiovascular: normal peripheral pulses, normal rate Abdomen: normal bowel sounds, non distended Extremities: no cyanosis, no clubbing Current Medications Medications (Trade) Dose Ordered Sig/Escobar Route PRN Reason Start Time Stop Time Status Last Admin Dose Admin Acetaminophen (Tylenol) 650 mg Q4H PRN ORAL Mild Pain (Pain Scale 1-3) 08/06/18 06:45 08/06/18 15:00 Acetaminophen (Tylenol) 650 mg Q6H PRN ORAL FHMP 08/04/18 13:30 09/03/18 13:29 08/04/18 20:23 Acetaminophen/ Codeine Phosphate (Tylenol #3) 1 tab Q4H PRN ORAL Moderate Pain (Pain Scale 4-6) 08/04/18 13:30 08/11/18 13:29 Amiodarone HCl (Cordarone) 200 mg BID ORAL 07/29/18 18:00 08/28/18 17:59 08/06/18 09:28 Cefazolin Sodium 1 gm/Dextrose 55 ml @ 110 mls/hr Q8HR@0500,1300,2100 IVP 08/04/18 21:00 08/11/18 20:59 08/06/18 05:19 Dextrose (Dextrose 50%) 25 ml Q30M PRN IV Hypoglycemia 07/29/18 10:45 08/28/18 07:03 Dextrose (Dextrose 50%) 50 ml Q30M PRN IV hypoglycemia 07/29/18 10:45 08/28/18 07:14 Digoxin (Lanoxin) 0.125 mg DAILY ORAL 07/30/18 09:00 08/29/18 08:59 08/06/18 09:28 Diphenhydramine HCl (Benadryl) 25 mg Q15M PRN IVP Itching 08/06/18 06:45 08/06/18 15:00 Escitalopram Oxalate (Lexapro) 10 mg DAILY ORAL 07/30/18 09:00 08/28/18 08:59 08/06/18 09:28 Furosemide (Lasix) 40 mg DAILY ORAL 08/03/18 09:00 09/02/18 08:59 08/06/18 09:28 Hydralazine HCl (Apresoline) 5 mg Q30M PRN IV SBP>160 OR___/DBP>90 OR___ 08/06/18 06:45 08/06/18 15:00 Iron Sucrose 100 mg/Sodium Chloride 60 ml @ 240 mls/hr BEDTIME IV 08/02/18 21:00 08/06/18 21:14 08/05/18 21:04 Lactated Ringer's 1,000 ml @ 10 mls/hr Q24H IVLG 08/06/18 06:39 08/06/18 15:00 Metoprolol Tartrate (Lopressor) 50 mg EVERY 12 HOURS ORAL 07/29/18 21:00 08/28/18 08:59 08/05/18 21:04 Morphine Sulfate (Morphine Sulfate) 2 mg Q1H PRN IVP Severe Pain (Pain Scale 7-10) 08/04/18 13:31 08/11/18 13:30 Ondansetron HCl (Zofran) 4 mg Q6H PRN IVP Nausea & Vomiting 08/04/18 13:30 09/03/18 13:29 Polyethylene Glycol (Miralax) 17 gm HSPRN PRN ORAL Constipation 07/29/18 21:00 08/28/18 20:59 Promethazine HCl/ Codeine (Phenergan with Codeine) 5 ml Q6H PRN ORAL For Cough 08/03/18 20:15 09/02/18 20:14 08/03/18 20:51 Kelly Mejia MD Aug 06, 2018 10:00
[2018-08-06 10:50] LABS: BASOPHILS % (AUTO) 1.8 % (0.0-2.0); EOSINOPHILS % (AUTO) 0.7 % (0.0-3.0); HEMATOCRIT 34.7 % (37.0-47.0); LYMPHOCYTES % (AUTO) 11.4 % (20.0-45.0); MEAN CORPUSCULAR VOLUME 89 FL (80-99); MONOCYTES % (AUTO) 3.7 % (1.0-10.0); NEUTROPHILS % (AUTO) 82.4 % (45.0-75.0); PLATELET COUNT 158 K/UL (150-450); RED BLOOD COUNT 3.92 M/UL (4.20-5.40); RED CELL DISTRIBUTION WIDTH 21.9 % (11.6-14.8); WHITE BLOOD COUNT 6.4 K/UL (4.8-10.8)
[2018-08-06 10:56] LABS: INR 1.2 (0.9-1.1)
[2018-08-06 11:07] LABS: ASPARTATE AMINO TRANSFERASE 21 U/L (15-37); BILIRUBIN,TOTAL 0.5 MG/DL (0.2-1.0); CALCIUM 8.9 MG/DL (8.5-10.1); CHLORIDE 104 MMOL/L (98-107); CREATININE 0.8 MG/DL (0.55-1.30); POTASSIUM 3.9 MMOL/L (3.5-5.1); SODIUM 140 MMOL/L (136-145)
[2018-08-06 11:23] LABS: ALANINE AMINOTRANSFERASE 9 U/L (12-78); ALBUMIN 2.7 G/DL (3.4-5.0); ALBUMIN/GLOBULIN RATIO 0.7 (1.0-2.7); ALKALINE PHOSPHATASE 86 U/L (46-116); BLOOD UREA NITROGEN 13 mg/dL (7-18); CARBON DIOXIDE 25 MMOL/L (21-32)
--- NOTE | 2018-08-06 11:44 | Cardiac Electrophysiology PN ---
Assessment/Plan Assessment/Plan 1. Atrial fibrillation with rapid ventricular response. On metoprolol 50 bid, amiodarone 200 mg b.i.d. and digoxin 0.125. Resume Pradaxa if OK with GI and surgery Dig level 1.4 on 08/03/18 2. Status post [employer] pacemaker generator change 08/04/18 3. Hypertension and diastolic dysfunction with BNP>39417 and EF 65%. Continue metoprolol 50 mg b.i.d. and Lasix 40 po daily 4. Polycythemia vera. The patient is on hydroxyurea. 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 6. Abdominal Pain, weight loss.S/P EGD today. FU GI and surgery. DW RN and Dr Hinkle Subjective Subjective No CP or SOB. Had EGD today.Had HIDA scan yesterday Objective Last 24 Hour Vital Signs Date Time Temp Pulse Resp B/P (MAP) Pulse Ox O2 Delivery O2 Flow Rate FiO2 08/06/18 09:28 72 08/06/18 09:10 97.5 72 18 96/63 (74) 98 08/06/18 09:00 72 96/63 08/06/18 09:00 Room Air 08/06/18 08:55 97.8 82 13 109/61 18 Nasal Cannula 3 08/06/18 08:44 84 17 133/65 18 Nasal Cannula 3 08/06/18 08:39 71 17 114/61 99 Nasal Cannula 3 08/06/18 08:36 79 17 100 08/06/18 08:33 97.6 79 17 124/66 100 Nasal Cannula 3 08/06/18 04:00 61 08/06/18 04:00 97.7 61 18 138/69 (92) 98 08/06/18 00:00 60 08/06/18 00:00 97.4 60 18 122/66 (84) 98 08/05/18 21:04 72 110/71 08/05/18 21:00 Room Air 08/05/18 20:00 97.4 72 18 105/70 (82) 98 08/05/18 20:00 72 08/05/18 16:00 61 08/05/18 16:00 97.4 65 18 129/73 (91) 98 08/05/18 12:30 97.5 62 18 122/62 (82) 97 Intake and Output 08/05/18 08/06/18 19:00 07:00 # Voids 2 4 Laboratory Tests Test 08/06/18 10:25 White Blood Count 6.4 K/UL (4.8-10.8) Red Blood Count 3.92 M/UL (4.20-5.40) L Hemoglobin 11.0 G/DL (12.0-16.0) L Hematocrit 34.7 % (37.0-47.0) L Mean Corpuscular Volume 89 FL (80-99) Mean Corpuscular Hemoglobin 28.1 PG (27.0-31.0) Mean Corpuscular Hemoglobin Concent 31.7 G/DL (32.0-36.0) L Red Cell Distribution Width 21.9 % (11.6-14.8) H Platelet Count 158 K/UL (150-450) Mean Platelet Volume 9.5 FL (6.5-10.1) Neutrophils (%) (Auto) 82.4 % (45.0-75.0) H Lymphocytes (%) (Auto) 11.4 % (20.0-45.0) L Monocytes (%) (Auto) 3.7 % (1.0-10.0) Eosinophils (%) (Auto) 0.7 % (0.0-3.0) Basophils (%) (Auto) 1.8 % (0.0-2.0) Erythrocyte Sedimentation Rate Pending Prothrombin Time 12.7 SEC (9.30-11.50) H Prothromb Time International Ratio 1.2 (0.9-1.1) H Activated Partial Thromboplast Time 33 SEC (23-33) Sodium Level 140 MMOL/L (136-145) Potassium Level 3.9 MMOL/L (3.5-5.1) Chloride Level 104 MMOL/L (98-107) Carbon Dioxide Level 25 MMOL/L (21-32) Blood Urea Nitrogen 13 mg/dL (7-18) Creatinine 0.8 MG/DL (0.55-1.30) Estimat Glomerular Filtration Rate mL/min (>60) Glucose Level 92 MG/DL (74-106) Calcium Level 8.9 MG/DL (8.5-10.1) Total Bilirubin 0.5 MG/DL (0.2-1.0) Aspartate Amino Transf (AST/SGOT) 21 U/L (15-37) Alanine Aminotransferase (ALT/SGPT) 9 U/L (12-78) L Alkaline Phosphatase 86 U/L (46-116) C-Reactive Protein, Quantitative 3.9 mg/dL (0.00-0.90) H Total Protein 6.8 G/DL (6.4-8.2) Albumin 2.7 G/DL (3.4-5.0) L Globulin 4.1 g/dL Albumin/Globulin Ratio 0.7 (1.0-2.7) L Amylase Level 22 U/L (25-115) L Lipase 80 U/L (73-393) Objective HEAD AND NECK: Mild JVD. LUNGS: Decreased breath sounds. CARDIOVASCULAR: regular S1 and S2 with no gallop or murmur New Pacemaker left subclavian no hematoma or oozing. ABDOMEN: Soft. EXTREMITIES: No pitting edema. River Freitas MD Aug 06, 2018 11:44
--- NOTE | 2018-08-06 12:01 | Internal Med Progress Note ---
Subjective Date of Service: Aug 06, 2018 Physician Name Edwards,Roshan Attending Physician Antonio Adrian MD Current Medications Medications (Trade) Dose Ordered Sig/Escobar Route PRN Reason Start Time Stop Time Status Last Admin Dose Admin Acetaminophen (Tylenol) 650 mg Q4H PRN ORAL Mild Pain (Pain Scale 1-3) 08/06/18 06:45 08/06/18 15:00 Acetaminophen (Tylenol) 650 mg Q6H PRN ORAL FHMP 08/04/18 13:30 09/03/18 13:29 08/04/18 20:23 Acetaminophen/ Codeine Phosphate (Tylenol #3) 1 tab Q4H PRN ORAL Moderate Pain (Pain Scale 4-6) 08/04/18 13:30 08/11/18 13:29 Amiodarone HCl (Cordarone) 200 mg BID ORAL 07/29/18 18:00 08/28/18 17:59 08/06/18 09:28 Cefazolin Sodium 1 gm/Dextrose 55 ml @ 110 mls/hr Q8HR@0500,1300,2100 IVP 08/04/18 21:00 08/11/18 20:59 08/06/18 05:19 Dabigatran (Pradaxa) 150 mg EVERY 12 HOURS ORAL 08/06/18 21:00 09/05/18 20:59 Dextrose (Dextrose 50%) 25 ml Q30M PRN IV Hypoglycemia 07/29/18 10:45 08/28/18 07:03 Dextrose (Dextrose 50%) 50 ml Q30M PRN IV hypoglycemia 07/29/18 10:45 08/28/18 07:14 Digoxin (Lanoxin) 0.125 mg DAILY ORAL 07/30/18 09:00 08/29/18 08:59 08/06/18 09:28 Diphenhydramine HCl (Benadryl) 25 mg Q15M PRN IVP Itching 08/06/18 06:45 08/06/18 15:00 Escitalopram Oxalate (Lexapro) 10 mg DAILY ORAL 07/30/18 09:00 08/28/18 08:59 08/06/18 09:28 Furosemide (Lasix) 40 mg DAILY ORAL 08/03/18 09:00 09/02/18 08:59 08/06/18 09:28 Hydralazine HCl (Apresoline) 5 mg Q30M PRN IV SBP>160 OR___/DBP>90 OR___ 08/06/18 06:45 08/06/18 15:00 Iron Sucrose 100 mg/Sodium Chloride 60 ml @ 240 mls/hr BEDTIME IV 08/02/18 21:00 08/06/18 21:14 08/05/18 21:04 Lactated Ringer's 1,000 ml @ 10 mls/hr Q24H IVLG 08/06/18 06:39 08/06/18 15:00 Metoprolol Tartrate (Lopressor) 50 mg EVERY 12 HOURS ORAL 07/29/18 21:00 08/28/18 08:59 08/05/18 21:04 Morphine Sulfate (Morphine Sulfate) 2 mg Q1H PRN IVP Severe Pain (Pain Scale 7-10) 08/04/18 13:31 08/11/18 13:30 Ondansetron HCl (Zofran) 4 mg Q6H PRN IVP Nausea & Vomiting 08/04/18 13:30 09/03/18 13:29 Polyethylene Glycol (Miralax) 17 gm HSPRN PRN ORAL Constipation 07/29/18 21:00 08/28/18 20:59 Promethazine HCl/ Codeine (Phenergan with Codeine) 5 ml Q6H PRN ORAL For Cough 08/03/18 20:15 09/02/18 20:14 08/03/18 20:51 Allergies: Coded Allergies: No Known Allergies (Unverified , 04/24/18) ROS Limited/Unobtainable: No Constitutional: Reports: no symptoms HEENT: Reports: no symptoms Cardiovascular: Reports: no symptoms Respiratory: Reports: no symptoms Gastrointestinal/Abdominal: Reports: abdominal pain Genitourinary: Reports: no symptoms Neurologic/Psychiatric: Reports: no symptoms Subjective 78 YO F admitted with fever and vertigo. Now pneumonia. Cover for Int Germán-Dr Adrian. S/P Pacemaker Battery change on 08/04/18. S/P endoscopy 08/06/18 Objective Last Vital Signs Date Time Temp Pulse Resp B/P (MAP) Pulse Ox O2 Delivery O2 Flow Rate FiO2 08/06/18 09:28 72 08/06/18 09:10 97.5 18 96/63 (74) 98 08/06/18 09:00 Room Air 08/06/18 08:55 3 Laboratory Tests Test 08/06/18 10:25 White Blood Count 6.4 K/UL (4.8-10.8) Red Blood Count 3.92 M/UL (4.20-5.40) L Hemoglobin 11.0 G/DL (12.0-16.0) L Hematocrit 34.7 % (37.0-47.0) L Mean Corpuscular Volume 89 FL (80-99) Mean Corpuscular Hemoglobin 28.1 PG (27.0-31.0) Mean Corpuscular Hemoglobin Concent 31.7 G/DL (32.0-36.0) L Red Cell Distribution Width 21.9 % (11.6-14.8) H Platelet Count 158 K/UL (150-450) Mean Platelet Volume 9.5 FL (6.5-10.1) Neutrophils (%) (Auto) 82.4 % (45.0-75.0) H Lymphocytes (%) (Auto) 11.4 % (20.0-45.0) L Monocytes (%) (Auto) 3.7 % (1.0-10.0) Eosinophils (%) (Auto) 0.7 % (0.0-3.0) Basophils (%) (Auto) 1.8 % (0.0-2.0) Erythrocyte Sedimentation Rate 83 MM/HR (0-30) H Prothrombin Time 12.7 SEC (9.30-11.50) H Prothromb Time International Ratio 1.2 (0.9-1.1) H Activated Partial Thromboplast Time 33 SEC (23-33) Sodium Level 140 MMOL/L (136-145) Potassium Level 3.9 MMOL/L (3.5-5.1) Chloride Level 104 MMOL/L (98-107) Carbon Dioxide Level 25 MMOL/L (21-32) Blood Urea Nitrogen 13 mg/dL (7-18) Creatinine 0.8 MG/DL (0.55-1.30) Estimat Glomerular Filtration Rate mL/min (>60) Glucose Level 92 MG/DL (74-106) Calcium Level 8.9 MG/DL (8.5-10.1) Total Bilirubin 0.5 MG/DL (0.2-1.0) Aspartate Amino Transf (AST/SGOT) 21 U/L (15-37) Alanine Aminotransferase (ALT/SGPT) 9 U/L (12-78) L Alkaline Phosphatase 86 U/L (46-116) C-Reactive Protein, Quantitative 3.9 mg/dL (0.00-0.90) H Total Protein 6.8 G/DL (6.4-8.2) Albumin 2.7 G/DL (3.4-5.0) L Globulin 4.1 g/dL Albumin/Globulin Ratio 0.7 (1.0-2.7) L Amylase Level 22 U/L (25-115) L Lipase 80 U/L (73-393) Intake and Output 08/05/18 08/06/18 19:00 07:00 # Voids 2 4 Objective PHYSICAL EXAMINATION: GENERAL: The patient is a well-developed and well-nourished female, in no apparent distress. HEENT: Eyes, pupils are equal and responsive to light and accommodation. Extraocular movements are intact. NECK: Supple without lymphadenopathy. CHEST: Lungs are clear to auscultation bilaterally without wheezes or rales. CARDIOVASCULAR: Regular rhythm and rate. S1, S2 normal without murmurs, rubs, or gallops. ABDOMEN: Soft, nontender, nondistended. Positive bowel sounds. No evidence of hepatosplenomegaly. Currently, no rebound or guarding noted. EXTREMITIES: Negative for clubbing, cyanosis, edema. RECTAL/GENITAL: Not performed. NEUROLOGIC: Cranial nerves II through XII are grossly intact without focal deficits. Motor strength is 5/5 bilaterally. Deep tendon reflexes are 2+ plantar. Assessment/Plan Assessment/Plan ASSESSMENT: This is an 78-year-old female. 1. Fever. 2. Vertigo. 3. Atrial fibrillation with rapid ventricular rate. 4. Polycythemia vera. 5. Hypertension. 6. Obstructive sleep apnea. 7. Coronary artery disease. 8. Hypercholesteremia. 9. Congestive heart failure. 10. Pneumonia 11. Pacemaker 12. Persistent hypokalemia 13. right upper quadrant pain TREATMENT: 1. Atrial fibrillation/coronary artery disease/congestive heart failure. Cardiology consultation has been obtained with Dr. River Freitas. Serial troponin levels will be performed. BNP is pending. An echocardiogram is pending. The patient has been started on digoxin for rapid ventricular rate. 2. Polycythemia vera. Continue hydroxyurea as above. 3. Hypertension. Continue clonidine as above. 4. Obstructive sleep apnea. 5. Hypercholesterolemia. 6. History of congestive heart failure. 7. Pneumonia/fever A pulmonary consultation has been obtained with Dr Mejia. Continue empiric ceftriaxone 8. S/P Pacemaker battery change Saturday08/04/18-see cardiology note. 9. CT abdomen and HIDA=gallbladder sludge vs stone-see surgery consult 10. S/P Endoscopy 08/06/18 Roshan Edwards MD Aug 06, 2018 12:01
--- NOTE | 2018-08-06 13:42 | Surgery Progress Note ---
Surgery Progress Note Subjective Additional Comments no acute events. doing well. spoke with radiology this as noted right rib fx. confirmed 09/19/09 rib fx right side acute with inflammation. pt states pain after family member picked her up once. Objective Last 24 Hour Vital Signs Date Time Temp Pulse Resp B/P (MAP) Pulse Ox O2 Delivery O2 Flow Rate FiO2 08/06/18 12:00 97.6 78 18 104/61 (75) 97 08/06/18 09:28 72 08/06/18 09:10 97.5 72 18 96/63 (74) 98 08/06/18 09:00 72 96/63 08/06/18 09:00 Room Air 08/06/18 08:55 97.8 82 13 109/61 18 Nasal Cannula 3 08/06/18 08:44 84 17 133/65 18 Nasal Cannula 3 08/06/18 08:39 71 17 114/61 99 Nasal Cannula 3 08/06/18 08:36 79 17 100 08/06/18 08:33 97.6 79 17 124/66 100 Nasal Cannula 3 08/06/18 04:00 61 08/06/18 04:00 97.7 61 18 138/69 (92) 98 08/06/18 00:00 60 08/06/18 00:00 97.4 60 18 122/66 (84) 98 08/05/18 21:04 72 110/71 08/05/18 21:00 Room Air 08/05/18 20:00 97.4 72 18 105/70 (82) 98 08/05/18 20:00 72 08/05/18 16:00 61 08/05/18 16:00 97.4 65 18 129/73 (91) 98 I&O Intake and Output 08/05/18 08/06/18 19:00 07:00 # Voids 2 4 Cardiovascular: RSR Respiratory: clear Abdomen: soft, flat, non-tender, tenderness - around right inferior ribs , present bowel sounds, non-distended Extremities: no tenderness, no cyanosis Laboratory Tests Test 08/06/18 10:25 White Blood Count 6.4 K/UL (4.8-10.8) Red Blood Count 3.92 M/UL (4.20-5.40) L Hemoglobin 11.0 G/DL (12.0-16.0) L Hematocrit 34.7 % (37.0-47.0) L Mean Corpuscular Volume 89 FL (80-99) Mean Corpuscular Hemoglobin 28.1 PG (27.0-31.0) Mean Corpuscular Hemoglobin Concent 31.7 G/DL (32.0-36.0) L Red Cell Distribution Width 21.9 % (11.6-14.8) H Platelet Count 158 K/UL (150-450) Mean Platelet Volume 9.5 FL (6.5-10.1) Neutrophils (%) (Auto) 82.4 % (45.0-75.0) H Lymphocytes (%) (Auto) 11.4 % (20.0-45.0) L Monocytes (%) (Auto) 3.7 % (1.0-10.0) Eosinophils (%) (Auto) 0.7 % (0.0-3.0) Basophils (%) (Auto) 1.8 % (0.0-2.0) Erythrocyte Sedimentation Rate 83 MM/HR (0-30) H Prothrombin Time 12.7 SEC (9.30-11.50) H Prothromb Time International Ratio 1.2 (0.9-1.1) H Activated Partial Thromboplast Time 33 SEC (23-33) Sodium Level 140 MMOL/L (136-145) Potassium Level 3.9 MMOL/L (3.5-5.1) Chloride Level 104 MMOL/L (98-107) Carbon Dioxide Level 25 MMOL/L (21-32) Blood Urea Nitrogen 13 mg/dL (7-18) Creatinine 0.8 MG/DL (0.55-1.30) Estimat Glomerular Filtration Rate mL/min (>60) Glucose Level 92 MG/DL (74-106) Calcium Level 8.9 MG/DL (8.5-10.1) Total Bilirubin 0.5 MG/DL (0.2-1.0) Aspartate Amino Transf (AST/SGOT) 21 U/L (15-37) Alanine Aminotransferase (ALT/SGPT) 9 U/L (12-78) L Alkaline Phosphatase 86 U/L (46-116) C-Reactive Protein, Quantitative 3.9 mg/dL (0.00-0.90) H Total Protein 6.8 G/DL (6.4-8.2) Albumin 2.7 G/DL (3.4-5.0) L Globulin 4.1 g/dL Albumin/Globulin Ratio 0.7 (1.0-2.7) L Amylase Level 22 U/L (25-115) L Lipase 80 U/L (73-393) Plan Problems: (1) RUQ abdominal pain Assessment & Plan: This is a 78-year-old female with right upper quadrant abdominal pain, normal ultrasound, abnormal HIDA with potential biliary dyskinesia. Patient admitted with fevers which have since resolved. Currently no nausea vomiting fever or chills. LFTs okay. On examination right upper quadrant tenderness. EGD okay spoke with radiology this as noted right rib fx. confirmed 09/19/09 rib fx right side acute with inflammation. pt states pain after family member picked her up once. no acute surgical intervention pain control Trend labs. Thank you for this consultation we will follow with recommendations (2) Pacemaker (3) Acute encephalopathy (4) Generalized weakness (5) Pulmonary edema (6) ACS (acute coronary syndrome) (7) Epigastric abdominal pain (8) Head injury, acute, without loss of consciousness (9) Pyelonephritis (10) CAD (coronary artery disease) (11) COPD (chronic obstructive pulmonary disease) (12) Hypercholesterolemia (13) positional vertigo (14) KELVIN (obstructive sleep apnea) (15) Peripheral neuropathy (16) UTI (urinary tract infection) (17) Atrial fibrillation (18) Polycythemia vera (19) CHF (congestive heart failure) (20) Anemia (21) Malnutrition (22) Episode of generalized weakness Errol Estrada Aug 06, 2018 13:42
--- NOTE | 2018-08-06 13:49 | Hematology/Onc Progress Note ---
Assessment/Plan Assessment/Plan ASSESSMENT AND RECOMMENDATIONS # Anemia of chronic disease due to underlying chronic medical issues, multifactorial --> Anemia workup has been ordered, rule out gi bleed - results pending. --> No evidence of hemolysis is noted, peripheral smear has been reviewed. --> Hgb goal >7. Transfuse prn. --> Okay to continue iron x 5 days through 08/06 --> Medications have been reviewed --> low threshold for gi evaluation in case has occult + --> bone marrow biopsy is not indicated given the other more likely causes --> Hgb trend: 9.3-->11.1--11 # Polycythemia vera. Cont on hydroxyurea --> obtain jak2 level --> imaging abd us ordered - Splenomegaly. 3 cm cyst within the spleen probably complex with at least one or 2 septations. Trace right pleural effusion. Gallbladder sludge versus stones. # Vertigo. --> per neuro as needed # Atrial fibrillation with rapid ventricular rate. Cardiology is following, appreciate recs. --> Serial troponin levels will be performeD --> started on digoxin for rapid ventricular rate. # Hypertension. Cont on clonidine # Obstructive sleep apnea. # Coronary artery disease. # Hypercholesteremia. # Congestive heart failure. The time the the note is entered does not reflect the time the patient was examined. I greatly appreciate the consultation. Subjective Hematologic/Lymphatic: Reports: anemia Allergies: Coded Allergies: No Known Allergies (Unverified , 04/24/18) All Systems: reviewed and negative except above Subjective 08/03: Patient in bed resting, no respiratory distress noticed at this time. Pacemaker generator change on Saturday08/03/18. Stool OB pending. 08/05: US abd shows Splenomegaly. HIDA scan for today. Stool OB negative. Blood cx negative. 08/06: HIDA scan shows low gallbladder ejection fraction EGD for today. Remains on IV iron. Objective Objective Current Medications Medications (Trade) Dose Ordered Sig/Escobar Route PRN Reason Start Time Stop Time Status Last Admin Dose Admin Acetaminophen (Tylenol) 650 mg Q4H PRN ORAL Mild Pain (Pain Scale 1-3) 08/06/18 06:45 08/06/18 15:00 Acetaminophen (Tylenol) 650 mg Q6H PRN ORAL FHMP 08/04/18 13:30 09/03/18 13:29 08/04/18 20:23 Acetaminophen/ Codeine Phosphate (Tylenol #3) 1 tab Q4H PRN ORAL Moderate Pain (Pain Scale 4-6) 08/04/18 13:30 08/11/18 13:29 Amiodarone HCl (Cordarone) 200 mg BID ORAL 07/29/18 18:00 08/28/18 17:59 08/06/18 09:28 Cefazolin Sodium 1 gm/Dextrose 55 ml @ 110 mls/hr Q8HR@0500,1300,2100 IVP 08/04/18 21:00 08/11/18 20:59 08/06/18 12:55 Dabigatran (Pradaxa) 150 mg EVERY 12 HOURS ORAL 08/06/18 21:00 09/05/18 20:59 Dextrose (Dextrose 50%) 25 ml Q30M PRN IV Hypoglycemia 07/29/18 10:45 08/28/18 07:03 Dextrose (Dextrose 50%) 50 ml Q30M PRN IV hypoglycemia 07/29/18 10:45 08/28/18 07:14 Digoxin (Lanoxin) 0.125 mg DAILY ORAL 07/30/18 09:00 08/29/18 08:59 08/06/18 09:28 Diphenhydramine HCl (Benadryl) 25 mg Q15M PRN IVP Itching 08/06/18 06:45 08/06/18 15:00 Escitalopram Oxalate (Lexapro) 10 mg DAILY ORAL 07/30/18 09:00 08/28/18 08:59 08/06/18 09:28 Furosemide (Lasix) 40 mg DAILY ORAL 08/03/18 09:00 09/02/18 08:59 08/06/18 09:28 Hydralazine HCl (Apresoline) 5 mg Q30M PRN IV SBP>160 OR___/DBP>90 OR___ 08/06/18 06:45 08/06/18 15:00 Iron Sucrose 100 mg/Sodium Chloride 60 ml @ 240 mls/hr BEDTIME IV 08/02/18 21:00 08/06/18 21:14 08/05/18 21:04 Lactated Ringer's 1,000 ml @ 10 mls/hr Q24H IVLG 08/06/18 06:39 08/06/18 15:00 Metoprolol Tartrate (Lopressor) 50 mg EVERY 12 HOURS ORAL 07/29/18 21:00 08/28/18 08:59 08/05/18 21:04 Morphine Sulfate (Morphine Sulfate) 2 mg Q1H PRN IVP Severe Pain (Pain Scale 7-10) 08/04/18 13:31 08/11/18 13:30 Ondansetron HCl (Zofran) 4 mg Q6H PRN IVP Nausea & Vomiting 08/04/18 13:30 09/03/18 13:29 Polyethylene Glycol (Miralax) 17 gm HSPRN PRN ORAL Constipation 07/29/18 21:00 08/28/18 20:59 Promethazine HCl/ Codeine (Phenergan with Codeine) 5 ml Q6H PRN ORAL For Cough 08/03/18 20:15 09/02/18 20:14 08/03/18 20:51 Last 24 Hour Vital Signs Date Time Temp Pulse Resp B/P (MAP) Pulse Ox O2 Delivery O2 Flow Rate FiO2 08/06/18 12:00 97.6 78 18 104/61 (75) 97 08/06/18 09:28 72 08/06/18 09:10 97.5 72 18 96/63 (74) 98 08/06/18 09:00 72 96/63 08/06/18 09:00 Room Air 08/06/18 08:55 97.8 82 13 109/61 18 Nasal Cannula 3 08/06/18 08:44 84 17 133/65 18 Nasal Cannula 3 08/06/18 08:39 71 17 114/61 99 Nasal Cannula 3 08/06/18 08:36 79 17 100 08/06/18 08:33 97.6 79 17 124/66 100 Nasal Cannula 3 08/06/18 04:00 61 08/06/18 04:00 97.7 61 18 138/69 (92) 98 08/06/18 00:00 60 08/06/18 00:00 97.4 60 18 122/66 (84) 98 08/05/18 21:04 72 110/71 08/05/18 21:00 Room Air 08/05/18 20:00 97.4 72 18 105/70 (82) 98 08/05/18 20:00 72 08/05/18 16:00 61 08/05/18 16:00 97.4 65 18 129/73 (91) 98 08/05/18 12:30 97.5 62 18 122/62 (82) 97 08/05/18 09:00 Room Air 08/05/18 08:25 57 129/68 08/05/18 08:24 57 08/05/18 08:00 97.7 57 18 129/68 (88) 95 08/05/18 08:00 60 08/05/18 04:00 97.7 63 18 137/ 96 08/05/18 04:00 60 08/05/18 00:00 60 08/05/18 00:00 98.2 65 17 146/80 (102) 99 08/04/18 21:00 Room Air 08/04/18 20:23 61 143/74 08/04/18 20:00 98.1 61 18 143/47 (79) 96 08/04/18 20:00 60 08/04/18 16:00 60 08/04/18 15:57 97.4 61 18 144/77 (99) 100 08/04/18 15:20 98.0 61 18 125/62 (83) 98 08/04/18 15:05 97.9 60 18 130/62 (84) 98 08/04/18 14:50 97.8 60 18 114/62 (79) 100 08/04/18 14:25 97.8 60 15 114/62 100 Room Air 3 08/04/18 14:10 60 17 108/61 99 Room Air 3 08/04/18 13:54 60 15 113/61 100 Room Air 3 Intake and Output 08/05/18 08/06/18 19:00 07:00 # Voids 2 4 Labs Test 08/03/18 14:15 08/04/18 04:50 08/04/18 09:45 08/05/18 06:30 Stool Occult Blood Negative (NEGATIVE) White Blood Count 8.0 K/UL (4.8-10.8) 9.1 K/UL (4.8-10.8) Red Blood Count 3.38 M/UL (4.20-5.40) 3.84 M/UL (4.20-5.40) Hemoglobin 9.8 G/DL (12.0-16.0) 11.1 G/DL (12.0-16.0) Hematocrit 30.4 % (37.0-47.0) 34.5 % (37.0-47.0) Mean Corpuscular Volume 90 FL (80-99) 90 FL (80-99) Mean Corpuscular Hemoglobin 29.1 PG (27.0-31.0) 28.9 PG (27.0-31.0) Mean Corpuscular Hemoglobin Concent 32.4 G/DL (32.0-36.0) 32.1 G/DL (32.0-36.0) Red Cell Distribution Width 22.0 % (11.6-14.8) 22.1 % (11.6-14.8) Platelet Count 174 K/UL (150-450) 201 K/UL (150-450) Mean Platelet Volume 8.4 FL (6.5-10.1) 10.5 FL (6.5-10.1) Neutrophils (%) (Auto) % (45.0-75.0) 84.3 % (45.0-75.0) Lymphocytes (%) (Auto) % (20.0-45.0) 11.6 % (20.0-45.0) Monocytes (%) (Auto) % (1.0-10.0) 1.7 % (1.0-10.0) Eosinophils (%) (Auto) % (0.0-3.0) 0.7 % (0.0-3.0) Basophils (%) (Auto) % (0.0-2.0) 1.6 % (0.0-2.0) Differential Total Cells Counted 100 Neutrophils % (Manual) 84 % (45-75) Lymphocytes % (Manual) 5 % (20-45) Monocytes % (Manual) 3 % (1-10) Eosinophils % (Manual) 1 % (0-3) Basophils % (Manual) 1 % (0-2) Band Neutrophils 6 % (0-8) Nucleated Red Blood Cells 1 /100 WBC Platelet Estimate Adequate Platelet Morphology Giant Platelets Occasional Polychromasia 1+ Anisocytosis 3+ Tear Drop Cells Occasional Ovalocytes 2+ Erythrocyte Sedimentation Rate 70 MM/HR (0-30) Reticulocyte Count 2.0 % (0.5-2.0) Sodium Level 140 MMOL/L (136-145) 142 MMOL/L (136-145) Potassium Level 3.1 MMOL/L (3.5-5.1) 4.1 MMOL/L (3.5-5.1) Chloride Level 102 MMOL/L (98-107) 105 MMOL/L (98-107) Carbon Dioxide Level 27 MMOL/L (21-32) 28 MMOL/L (21-32) Anion Gap 11 mmol/L (5-15) 9 mmol/L (5-15) Blood Urea Nitrogen 15 mg/dL (7-18) 14 mg/dL (7-18) Creatinine 0.8 MG/DL (0.55-1.30) 0.9 MG/DL (0.55-1.30) Estimat Glomerular Filtration Rate mL/min (>60) mL/min (>60) Glucose Level 86 MG/DL (74-106) 89 MG/DL (74-106) Calcium Level 8.7 MG/DL (8.5-10.1) 9.3 MG/DL (8.5-10.1) Phosphorus Level 2.4 MG/DL (2.5-4.9) Magnesium Level 1.8 MG/DL (1.8-2.4) Total Bilirubin 0.6 MG/DL (0.2-1.0) Aspartate Amino Transf (AST/SGOT) 18 U/L (15-37) Alanine Aminotransferase (ALT/SGPT) 9 U/L (12-78) Alkaline Phosphatase 82 U/L (46-116) Lactate Dehydrogenase 514 U/L (81-234) Total Protein 6.3 G/DL (6.4-8.2) Albumin 2.8 G/DL (3.4-5.0) Globulin 3.5 g/dL Albumin/Globulin Ratio 0.8 (1.0-2.7) Prothrombin Time 11.9 SEC (9.30-11.50) Prothromb Time International Ratio 1.1 (0.9-1.1) Activated Partial Thromboplast Time 29 SEC (23-33) Troponin I 0.000 ng/mL (0.000-0.056) Test 08/06/18 10:25 White Blood Count 6.4 K/UL (4.8-10.8) Red Blood Count 3.92 M/UL (4.20-5.40) Hemoglobin 11.0 G/DL (12.0-16.0) Hematocrit 34.7 % (37.0-47.0) Mean Corpuscular Volume 89 FL (80-99) Mean Corpuscular Hemoglobin 28.1 PG (27.0-31.0) Mean Corpuscular Hemoglobin Concent 31.7 G/DL (32.0-36.0) Red Cell Distribution Width 21.9 % (11.6-14.8) Platelet Count 158 K/UL (150-450) Mean Platelet Volume 9.5 FL (6.5-10.1) Neutrophils (%) (Auto) 82.4 % (45.0-75.0) Lymphocytes (%) (Auto) 11.4 % (20.0-45.0) Monocytes (%) (Auto) 3.7 % (1.0-10.0) Eosinophils (%) (Auto) 0.7 % (0.0-3.0) Basophils (%) (Auto) 1.8 % (0.0-2.0) Erythrocyte Sedimentation Rate 83 MM/HR (0-30) Prothrombin Time 12.7 SEC (9.30-11.50) Prothromb Time International Ratio 1.2 (0.9-1.1) Activated Partial Thromboplast Time 33 SEC (23-33) Sodium Level 140 MMOL/L (136-145) Potassium Level 3.9 MMOL/L (3.5-5.1) Chloride Level 104 MMOL/L (98-107) Carbon Dioxide Level 25 MMOL/L (21-32) Blood Urea Nitrogen 13 mg/dL (7-18) Creatinine 0.8 MG/DL (0.55-1.30) Estimat Glomerular Filtration Rate mL/min (>60) Glucose Level 92 MG/DL (74-106) Calcium Level 8.9 MG/DL (8.5-10.1) Total Bilirubin 0.5 MG/DL (0.2-1.0) Aspartate Amino Transf (AST/SGOT) 21 U/L (15-37) Alanine Aminotransferase (ALT/SGPT) 9 U/L (12-78) Alkaline Phosphatase 86 U/L (46-116) C-Reactive Protein, Quantitative 3.9 mg/dL (0.00-0.90) Total Protein 6.8 G/DL (6.4-8.2) Albumin 2.7 G/DL (3.4-5.0) Globulin 4.1 g/dL Albumin/Globulin Ratio 0.7 (1.0-2.7) Amylase Level 22 U/L (25-115) Lipase 80 U/L (73-393) Height (Feet): 5 Height (Inches): 5.00 Weight (Pounds): 132 Objective PHYSICAL EXAMINATION: VITAL SIGNS: Have been reviewed GENERAL: The patient is a well-developed and well-nourished female, in no apparent distress. HEENT: Eyes, pupils are equal and responsive to light and accommodation. Extraocular movements are intact. NECK: Supple without lymphadenopathy. CHEST: Lungs are clear to auscultation bilaterally without wheezes or rales. CARDIOVASCULAR: Regular rhythm and rate. S1, S2 normal without murmurs, rubs, or gallops. ABDOMEN: Soft, nontender, nondistended. Positive bowel sounds. No evidence of hepatosplenomegaly. Currently, no rebound or guarding noted. EXTREMITIES: Negative for clubbing, cyanosis, edema. RECTAL/GENITAL: Not performed. NEUROLOGIC: Cranial nerves II through XII are grossly intact without focal deficits. Motor strength is 5/5 bilaterally. Deep tendon reflexes are 2+ plantar. Best Kaplan MD Aug 06, 2018 13:49
--- NOTE | 2018-08-06 14:15 | NUR ---
CASE MANAGEMENT:REVIEW 08/04/18 SI: AFIB W/RVR. COPD. CHF S/P PACEMAKER GENERATOR CHANGE EGD FOR TODAY 98.0 110 18 120/80 96% ON RA H/H-9.8/30.4 K-3.1 IS: PRADAXA PO Q12 IV ANCEF Q8HRS LASIX PO QD IV VENOFER QHS LEXAPRO PO QD DIGOXIN PO QD LOPRESSOR PO Q12 AMIODARONE PO BID : TELEMETRY STATUS DCP: FROM HOME PLAN: EGD FOR TODAY
--- NOTE | 2018-08-06 15:16 | NUR ---
Social Work Chart reviewed. Patient has not been working with [facility] (refusing their services). This Sw contacted son, Kishan ([phone]) and left a voicemail to discuss discharge planning with this SW. This Sw spoke with daughter in law, Eden ([phone]) who explains she recognizes patient is currently non-ambulatory, but insisting with family that she return back to her home along upon discharge. Eden explains patient can come and live with them, but family are not available 24 hour per day to assist patient. This Sw recommended SNF upon discharge vs 24 hour care from family. Daughter in law explains patient has been at [facility] in the past. This Sw spoke with patient to encourage a safe plan for discharge. Patient appears to express concerns that she can no longer care for herself as well. Daughter in law states she will discuss plans with son, Kishan patel (son is currently at work and unable to go over plans at this time).
--- NOTE | 2018-08-06 16:30 | Operative Note - Dictated ---
DATE OF OPERATION: 08/05/2018 GASTROENTEROLOGY PROCEDURE PROCEDURE: Upper gastrointestinal endoscopy with biopsy. SURGEON: Juwan Andrade M.D. ANESTHESIA: Please see the separate anesthesiologist notes for details. PRE-ENDOSCOPIC DIAGNOSIS: Abdominal pain. POSTOPERATIVE-ENDOSCOPIC DIAGNOSIS: Normal upper endoscopy, status post biopsy. PROCEDURE IN DETAIL: The procedure, its risks, indications, alternatives, and possible complications were explained to the patient and informed consent was obtained. The patient was then sedated in the left lateral decubitus position. A diagnostic upper endoscope was introduced through oropharynx and advanced to the duodenum. The endoscope was then gradually withdrawn and the mucosa examined carefully. Examination of the upper gastrointestinal mucosa did not reveal any significant abnormalities. Biopsies of the antrum were sent to pathology for review. There were no abnormalities to explain the patient's abdominal pain. The endoscope was removed and the patient was sent to Recovery in good condition. COMPLICATIONS: None. RECOMMENDATIONS: 1. Follow up biopsy results. 2. Check and treat Helicobacter pylori if positive. Juwan Andrade M.D. DR: COLIN JOB#: [id number] CC:
--- NOTE | 2018-08-06 17:59 | Infectious Diseases Prog Note ---
Assessment/Plan Assessment/Plan Assessment/Plan: 78 yo female with PMHx of HTN, CHF, CAD s/p LA s/p pacemaker , KELVIN, HLD and Afib who presented to the ED on 07/30/18 with fever. UTI UCx - Strep viridens Fever resoved No leukcoytosis Bcx neg -CT abd/p: There are acute nondisplaced fractures involving the right anterolateral 8, 9 and 10th ribs. There is associated adjacent subcutaneous reticulation c/w contusion. Splenomegaly. 3 cm cyst within the spleen probably complex with at least one or 2 septations. Trace right pleural effusion. Gallbladder sludge versus stones. Other incidental findings as above. Afib Anemia Abd pain -08/06 sp EGD: Normal upper endoscopy, status post biopsy. HTN CHF CAD s/p LA s/p pacemaker -08/04 SP Status post [employer] pacemaker generator change 08/04/18 KELVIN HLD PLAN: - On Zainab-op Ancef (after PPM generator change) -08/04 Amoxicillin #2 - 08/03 S/P Ceftriaxone #6 - Monitor CBC and Temps Thank you for this consult. We will continue to follow the patient during this hospitalization Subjective Allergies: Coded Allergies: No Known Allergies (Unverified , 04/24/18) Subjective aFebrile no leukocytosis Bcx Neg Objective Vital Signs Last 24 Hour Vital Signs Date Time Temp Pulse Resp B/P (MAP) Pulse Ox O2 Delivery O2 Flow Rate FiO2 08/06/18 12:00 97.6 78 18 104/61 (75) 97 08/06/18 09:28 72 08/06/18 09:10 97.5 72 18 96/63 (74) 98 08/06/18 09:00 72 96/63 08/06/18 09:00 Room Air 08/06/18 08:55 97.8 82 13 109/61 18 Nasal Cannula 3 08/06/18 08:44 84 17 133/65 18 Nasal Cannula 3 08/06/18 08:39 71 17 114/61 99 Nasal Cannula 3 08/06/18 08:36 79 17 100 08/06/18 08:33 97.6 79 17 124/66 100 Nasal Cannula 3 08/06/18 04:00 61 08/06/18 04:00 97.7 61 18 138/69 (92) 98 08/06/18 00:00 60 08/06/18 00:00 97.4 60 18 122/66 (84) 98 08/05/18 21:04 72 110/71 08/05/18 21:00 Room Air 08/05/18 20:00 97.4 72 18 105/70 (82) 98 08/05/18 20:00 72 Height (Feet): 5 Height (Inches): 5.00 Weight (Pounds): 132 Objective Gen: NAD HEENT: NCAT, MMM, EOMI, PERRL, No Oral lesion, no scleral icterus NECK: full range of motion, supple, no meningismus, No LAD, No JVD LUNGS: CTAB, No W/C, No Accessory muscle use CARDS: RRR, S1, S2, No M/R/G, ABD: Soft, NT, ND, No R/G, + BS, No HSM, No Masses : Deferred Ext: C/C/E, Pulses 2+ B/L (DP, Rad): NEURO: A/O x 4, Strength and Sensation Grossly intact PSYCH: Normal mood and affect SKIN: Warm/dry, No rashes Laboratory Tests Test 08/06/18 10:25 White Blood Count 6.4 K/UL (4.8-10.8) Red Blood Count 3.92 M/UL (4.20-5.40) L Hemoglobin 11.0 G/DL (12.0-16.0) L Hematocrit 34.7 % (37.0-47.0) L Mean Corpuscular Volume 89 FL (80-99) Mean Corpuscular Hemoglobin 28.1 PG (27.0-31.0) Mean Corpuscular Hemoglobin Concent 31.7 G/DL (32.0-36.0) L Red Cell Distribution Width 21.9 % (11.6-14.8) H Platelet Count 158 K/UL (150-450) Mean Platelet Volume 9.5 FL (6.5-10.1) Neutrophils (%) (Auto) 82.4 % (45.0-75.0) H Lymphocytes (%) (Auto) 11.4 % (20.0-45.0) L Monocytes (%) (Auto) 3.7 % (1.0-10.0) Eosinophils (%) (Auto) 0.7 % (0.0-3.0) Basophils (%) (Auto) 1.8 % (0.0-2.0) Erythrocyte Sedimentation Rate 83 MM/HR (0-30) H Prothrombin Time 12.7 SEC (9.30-11.50) H Prothromb Time International Ratio 1.2 (0.9-1.1) H Activated Partial Thromboplast Time 33 SEC (23-33) Sodium Level 140 MMOL/L (136-145) Potassium Level 3.9 MMOL/L (3.5-5.1) Chloride Level 104 MMOL/L (98-107) Carbon Dioxide Level 25 MMOL/L (21-32) Blood Urea Nitrogen 13 mg/dL (7-18) Creatinine 0.8 MG/DL (0.55-1.30) Estimat Glomerular Filtration Rate mL/min (>60) Glucose Level 92 MG/DL (74-106) Calcium Level 8.9 MG/DL (8.5-10.1) Total Bilirubin 0.5 MG/DL (0.2-1.0) Aspartate Amino Transf (AST/SGOT) 21 U/L (15-37) Alanine Aminotransferase (ALT/SGPT) 9 U/L (12-78) L Alkaline Phosphatase 86 U/L (46-116) C-Reactive Protein, Quantitative 3.9 mg/dL (0.00-0.90) H Total Protein 6.8 G/DL (6.4-8.2) Albumin 2.7 G/DL (3.4-5.0) L Globulin 4.1 g/dL Albumin/Globulin Ratio 0.7 (1.0-2.7) L Amylase Level 22 U/L (25-115) L Lipase 80 U/L (73-393) Current Medications Medications (Trade) Dose Ordered Sig/Escobar Route PRN Reason Start Time Stop Time Status Last Admin Dose Admin Acetaminophen (Tylenol) 650 mg Q6H PRN ORAL FHMP 08/04/18 13:30 09/03/18 13:29 08/04/18 20:23 Acetaminophen/ Codeine Phosphate (Tylenol #3) 1 tab Q4H PRN ORAL Moderate Pain (Pain Scale 4-6) 08/04/18 13:30 08/11/18 13:29 Amiodarone HCl (Cordarone) 200 mg BID ORAL 07/29/18 18:00 08/28/18 17:59 08/06/18 09:28 Cefazolin Sodium 1 gm/Dextrose 55 ml @ 110 mls/hr Q8HR@0500,1300,2100 IVP 08/04/18 21:00 08/11/18 20:59 08/06/18 12:55 Dabigatran (Pradaxa) 150 mg EVERY 12 HOURS ORAL 08/06/18 21:00 09/05/18 20:59 Dextrose (Dextrose 50%) 25 ml Q30M PRN IV Hypoglycemia 07/29/18 10:45 08/28/18 07:03 Dextrose (Dextrose 50%) 50 ml Q30M PRN IV hypoglycemia 07/29/18 10:45 08/28/18 07:14 Digoxin (Lanoxin) 0.125 mg DAILY ORAL 07/30/18 09:00 08/29/18 08:59 08/06/18 09:28 Escitalopram Oxalate (Lexapro) 10 mg DAILY ORAL 07/30/18 09:00 08/28/18 08:59 08/06/18 09:28 Furosemide (Lasix) 40 mg DAILY ORAL 08/03/18 09:00 09/02/18 08:59 08/06/18 09:28 Iron Sucrose 100 mg/Sodium Chloride 60 ml @ 240 mls/hr BEDTIME IV 08/02/18 21:00 08/06/18 21:14 08/05/18 21:04 Metoprolol Tartrate (Lopressor) 50 mg EVERY 12 HOURS ORAL 07/29/18 21:00 08/28/18 08:59 08/05/18 21:04 Morphine Sulfate (Morphine Sulfate) 2 mg Q1H PRN IVP Severe Pain (Pain Scale 7-10) 08/04/18 13:31 08/11/18 13:30 Ondansetron HCl (Zofran) 4 mg Q6H PRN IVP Nausea & Vomiting 08/04/18 13:30 09/03/18 13:29 Polyethylene Glycol (Miralax) 17 gm HSPRN PRN ORAL Constipation 07/29/18 21:00 08/28/18 20:59 Promethazine HCl/ Codeine (Phenergan with Codeine) 5 ml Q6H PRN ORAL For Cough 08/03/18 20:15 09/02/18 20:14 08/03/18 20:51 Alejandrina Arrieta M.D. Aug 06, 2018 17:59
--- NOTE | 2018-08-06 19:47 | NUR ---
HAND-OFF: Report given to Harry/RN, Patient awake, no acute distress/SOB noted, in stable condition. Endorsed plan of care.
--- NOTE | 2018-08-06 19:48 | NUR ---
NURSE NOTES: Received pt from [facility]. Pt is awake and resting in bed no c/o acute distress. IV site intact. Bed locked in lowest position. Call light within reach. Will continue with plan of care.
[2018-08-06] MEDS: Dabigatran 150mg cap ORAL SCH (21:09)
[2018-08-06] MEDS: Iron Sucrose 100 MG in NS 55 ML IV SCH (21:09)
--- NOTE | 2018-08-06 21:30 | NUR ---
NURSE NOTES: Pt is blood pressure 92/61. Contacted Dr. Freitas. Hold lopressor per Dr. Freitas for SBP<100.
[2018-08-07] VITALS: BP 109/59
[2018-08-07 04:00] VITALS: BP 137/63
[2018-08-07] MEDS: ceFAZolin sod 1 GM in D5W 55 ML IVP SCH (05:21)
[2018-08-07 07:06] LABS: BASOPHILS % (AUTO) 2.1 % (0.0-2.0); EOSINOPHILS % (AUTO) 0.6 % (0.0-3.0); HEMATOCRIT 31.1 % (37.0-47.0); HEMOGLOBIN 10.1 G/DL (12.0-16.0); LYMPHOCYTES % (AUTO) 10.8 % (20.0-45.0); MEAN CORPUSCULAR VOLUME 89 FL (80-99); MONOCYTES % (AUTO) 2.6 % (1.0-10.0); NEUTROPHILS % (AUTO) 83.9 % (45.0-75.0); PLATELET COUNT 156 K/UL (150-450); RED BLOOD COUNT 3.49 M/UL (4.20-5.40); RED CELL DISTRIBUTION WIDTH 22.5 % (11.6-14.8); WHITE BLOOD COUNT 6.1 K/UL (4.8-10.8)
[2018-08-07 07:17] LABS: ALANINE AMINOTRANSFERASE 6 U/L (12-78); ALBUMIN 2.9 G/DL (3.4-5.0); ALBUMIN/GLOBULIN RATIO 0.9 (1.0-2.7); ALKALINE PHOSPHATASE 77 U/L (46-116); ANION GAP 8 mmol/L (5-15); ASPARTATE AMINO TRANSFERASE 16 U/L (15-37); BILIRUBIN,TOTAL 0.5 MG/DL (0.2-1.0); BLOOD UREA NITROGEN 12 mg/dL (7-18); CALCIUM 8.9 MG/DL (8.5-10.1); CARBON DIOXIDE 30 MMOL/L (21-32); CHLORIDE 101 MMOL/L (98-107); CREATININE 0.9 MG/DL (0.55-1.30); LACTATE DEHYDROGENASE 503 U/L (81-234); POTASSIUM 3.3 MMOL/L (3.5-5.1); SODIUM 139 MMOL/L (136-145)
--- NOTE | 2018-08-07 07:19 | NUR ---
HAND-OFF: Report given to [facility]. Endorsed plan of care.
--- NOTE | 2018-08-07 07:38 | NUR ---
NURSE NOTES: Received report from Harry/RN, Patient is awake and alert, eating breakfast. No acute distress/SOB noted. IV checked, Patent, no bleeding or infiltration noted. Bed in low position and locked, Call light within reach. Belonging in reach. Will continue plan of care.
[2018-08-07 08:00] VITALS: BP 113/58
--- NOTE | 2018-08-07 08:16 | Hematology/Onc Progress Note ---
Assessment/Plan Assessment/Plan ASSESSMENT AND RECOMMENDATIONS # Anemia of chronic disease due to underlying chronic medical issues, multifactorial --> Anemia workup has been ordered, rule out gi bleed - results pending. --> No evidence of hemolysis is noted, peripheral smear has been reviewed. --> Hgb goal >7. Transfuse prn. --> S/P IV iron x 5 days 08/06 --> Medications have been reviewed --> low threshold for gi evaluation in case has occult + --> bone marrow biopsy is not indicated given the other more likely causes --> Hgb trend: 9.3-->11.1-->11-->10.1 # Polycythemia vera. Cont on hydroxyurea --> obtain jak2 level --> imaging abd us ordered - Splenomegaly. 3 cm cyst within the spleen probably complex with at least one or 2 septations. Trace right pleural effusion. Gallbladder sludge versus stones. # Vertigo. --> per neuro as needed # Atrial fibrillation with rapid ventricular rate. Cardiology is following, appreciate recs. --> Serial troponin levels will be performeD --> started on digoxin for rapid ventricular rate. # Hypertension. Cont on clonidine # Obstructive sleep apnea. # Coronary artery disease. # Hypercholesteremia. # Congestive heart failure. The time the the note is entered does not reflect the time the patient was examined. I greatly appreciate the consultation. Subjective Hematologic/Lymphatic: Reports: anemia Allergies: Coded Allergies: No Known Allergies (Unverified , 04/24/18) All Systems: reviewed and negative except above Subjective 08/03: Patient in bed resting, no respiratory distress noticed at this time. Pacemaker generator change on Saturday08/03/18. Stool OB pending. 08/05: US abd shows Splenomegaly. HIDA scan for today. Stool OB negative. Blood cx negative. 08/06: HIDA scan shows low gallbladder ejection fraction EGD for today. Remains on IV iron. 08/07: Pt is awake and alert, eating breakfast. No acute distress/SOB noted. S/P 5 days IV colette. Hgb stable. Objective Objective Current Medications Medications (Trade) Dose Ordered Sig/Escobar Route PRN Reason Start Time Stop Time Status Last Admin Dose Admin Acetaminophen (Tylenol) 650 mg Q6H PRN ORAL FHMP 08/04/18 13:30 09/03/18 13:29 08/04/18 20:23 Acetaminophen/ Codeine Phosphate (Tylenol #3) 1 tab Q4H PRN ORAL Moderate Pain (Pain Scale 4-6) 08/04/18 13:30 08/11/18 13:29 Amiodarone HCl (Cordarone) 200 mg BID ORAL 07/29/18 18:00 08/28/18 17:59 08/06/18 18:32 Cefazolin Sodium 1 gm/Dextrose 55 ml @ 110 mls/hr Q8HR@0500,1300,2100 IVP 08/04/18 21:00 08/11/18 20:59 08/07/18 05:21 Dabigatran (Pradaxa) 150 mg EVERY 12 HOURS ORAL 08/06/18 21:00 09/05/18 20:59 08/06/18 21:09 Dextrose (Dextrose 50%) 25 ml Q30M PRN IV Hypoglycemia 07/29/18 10:45 08/28/18 07:03 Dextrose (Dextrose 50%) 50 ml Q30M PRN IV hypoglycemia 07/29/18 10:45 08/28/18 07:14 Digoxin (Lanoxin) 0.125 mg DAILY ORAL 07/30/18 09:00 08/29/18 08:59 08/06/18 09:28 Escitalopram Oxalate (Lexapro) 10 mg DAILY ORAL 07/30/18 09:00 08/28/18 08:59 08/06/18 09:28 Furosemide (Lasix) 40 mg DAILY ORAL 08/03/18 09:00 09/02/18 08:59 08/06/18 09:28 Metoprolol Tartrate (Lopressor) 50 mg EVERY 12 HOURS ORAL 08/07/18 09:00 08/28/18 08:59 Morphine Sulfate (Morphine Sulfate) 2 mg Q1H PRN IVP Severe Pain (Pain Scale 7-10) 08/04/18 13:31 08/11/18 13:30 Ondansetron HCl (Zofran) 4 mg Q6H PRN IVP Nausea & Vomiting 08/04/18 13:30 09/03/18 13:29 Polyethylene Glycol (Miralax) 17 gm HSPRN PRN ORAL Constipation 07/29/18 21:00 08/28/18 20:59 Promethazine HCl/ Codeine (Phenergan with Codeine) 5 ml Q6H PRN ORAL For Cough 08/03/18 20:15 09/02/18 20:14 08/03/18 20:51 Last 24 Hour Vital Signs Date Time Temp Pulse Resp B/P (MAP) Pulse Ox O2 Delivery O2 Flow Rate FiO2 08/07/18 04:00 98.0 61 18 137/63 (87) 96 08/07/18 04:00 61 08/07/18 00:00 97.6 63 18 109/59 (76) 96 08/06/18 21:00 Room Air 08/06/18 21:00 66 92/51 08/06/18 20:00 68 08/06/18 20:00 97.8 68 18 115/60 (78) 95 08/06/18 16:00 92 08/06/18 16:00 98.1 80 18 92/55 (67) 97 08/06/18 12:00 97.6 78 18 104/61 (75) 97 08/06/18 12:00 79 08/06/18 09:28 72 08/06/18 09:10 97.5 72 18 96/63 (74) 98 08/06/18 09:00 72 96/63 08/06/18 09:00 Room Air 08/06/18 08:55 97.8 82 13 109/61 18 Nasal Cannula 3 08/06/18 08:44 84 17 133/65 18 Nasal Cannula 3 08/06/18 08:39 71 17 114/61 99 Nasal Cannula 3 08/06/18 08:36 79 17 100 08/06/18 08:33 97.6 79 17 124/66 100 Nasal Cannula 3 08/06/18 04:00 61 08/06/18 04:00 97.7 61 18 138/69 (92) 98 08/06/18 00:00 60 08/06/18 00:00 97.4 60 18 122/66 (84) 98 08/05/18 21:04 72 110/71 08/05/18 21:00 Room Air 08/05/18 20:00 97.4 72 18 105/70 (82) 98 08/05/18 20:00 72 08/05/18 16:00 61 08/05/18 16:00 97.4 65 18 129/73 (91) 98 08/05/18 12:30 97.5 62 18 122/62 (82) 97 08/05/18 09:00 Room Air 08/05/18 08:25 57 129/68 08/05/18 08:24 57 Intake and Output 08/06/18 08/07/18 19:00 07:00 Intake Total 800 ml Balance 800 ml Intake Oral 700 ml IV Total 100 ml # Voids 6 4 Labs Test 08/04/18 09:45 08/05/18 06:30 08/06/18 10:25 08/07/18 04:50 Prothrombin Time 11.9 SEC (9.30-11.50) 12.7 SEC (9.30-11.50) Prothromb Time International Ratio 1.1 (0.9-1.1) 1.2 (0.9-1.1) Activated Partial Thromboplast Time 29 SEC (23-33) 33 SEC (23-33) Troponin I 0.000 ng/mL (0.000-0.056) White Blood Count 9.1 K/UL (4.8-10.8) 6.4 K/UL (4.8-10.8) 6.1 K/UL (4.8-10.8) Red Blood Count 3.84 M/UL (4.20-5.40) 3.92 M/UL (4.20-5.40) 3.49 M/UL (4.20-5.40) Hemoglobin 11.1 G/DL (12.0-16.0) 11.0 G/DL (12.0-16.0) 10.1 G/DL (12.0-16.0) Hematocrit 34.5 % (37.0-47.0) 34.7 % (37.0-47.0) 31.1 % (37.0-47.0) Mean Corpuscular Volume 90 FL (80-99) 89 FL (80-99) 89 FL (80-99) Mean Corpuscular Hemoglobin 28.9 PG (27.0-31.0) 28.1 PG (27.0-31.0) 28.9 PG (27.0-31.0) Mean Corpuscular Hemoglobin Concent 32.1 G/DL (32.0-36.0) 31.7 G/DL (32.0-36.0) 32.3 G/DL (32.0-36.0) Red Cell Distribution Width 22.1 % (11.6-14.8) 21.9 % (11.6-14.8) 22.5 % (11.6-14.8) Platelet Count 201 K/UL (150-450) 158 K/UL (150-450) 156 K/UL (150-450) Mean Platelet Volume 10.5 FL (6.5-10.1) 9.5 FL (6.5-10.1) 10.9 FL (6.5-10.1) Neutrophils (%) (Auto) 84.3 % (45.0-75.0) 82.4 % (45.0-75.0) 83.9 % (45.0-75.0) Lymphocytes (%) (Auto) 11.6 % (20.0-45.0) 11.4 % (20.0-45.0) 10.8 % (20.0-45.0) Monocytes (%) (Auto) 1.7 % (1.0-10.0) 3.7 % (1.0-10.0) 2.6 % (1.0-10.0) Eosinophils (%) (Auto) 0.7 % (0.0-3.0) 0.7 % (0.0-3.0) 0.6 % (0.0-3.0) Basophils (%) (Auto) 1.6 % (0.0-2.0) 1.8 % (0.0-2.0) 2.1 % (0.0-2.0) Sodium Level 142 MMOL/L (136-145) 140 MMOL/L (136-145) 139 MMOL/L (136-145) Potassium Level 4.1 MMOL/L (3.5-5.1) 3.9 MMOL/L (3.5-5.1) 3.3 MMOL/L (3.5-5.1) Chloride Level 105 MMOL/L (98-107) 104 MMOL/L (98-107) 101 MMOL/L (98-107) Carbon Dioxide Level 28 MMOL/L (21-32) 25 MMOL/L (21-32) 30 MMOL/L (21-32) Anion Gap 9 mmol/L (5-15) 8 mmol/L (5-15) Blood Urea Nitrogen 14 mg/dL (7-18) 13 mg/dL (7-18) 12 mg/dL (7-18) Creatinine 0.9 MG/DL (0.55-1.30) 0.8 MG/DL (0.55-1.30) 0.9 MG/DL (0.55-1.30) Estimat Glomerular Filtration Rate mL/min (>60) mL/min (>60) mL/min (>60) Glucose Level 89 MG/DL (74-106) 92 MG/DL (74-106) 80 MG/DL (74-106) Calcium Level 9.3 MG/DL (8.5-10.1) 8.9 MG/DL (8.5-10.1) 8.9 MG/DL (8.5-10.1) Erythrocyte Sedimentation Rate 83 MM/HR (0-30) Total Bilirubin 0.5 MG/DL (0.2-1.0) 0.5 MG/DL (0.2-1.0) Aspartate Amino Transf (AST/SGOT) 21 U/L (15-37) 16 U/L (15-37) Alanine Aminotransferase (ALT/SGPT) 9 U/L (12-78) 6 U/L (12-78) Alkaline Phosphatase 86 U/L (46-116) 77 U/L (46-116) C-Reactive Protein, Quantitative 3.9 mg/dL (0.00-0.90) Total Protein 6.8 G/DL (6.4-8.2) 6.3 G/DL (6.4-8.2) Albumin 2.7 G/DL (3.4-5.0) 2.9 G/DL (3.4-5.0) Globulin 4.1 g/dL 3.4 g/dL Albumin/Globulin Ratio 0.7 (1.0-2.7) 0.9 (1.0-2.7) Amylase Level 22 U/L (25-115) Lipase 80 U/L (73-393) Phosphorus Level 3.0 MG/DL (2.5-4.9) Magnesium Level 1.9 MG/DL (1.8-2.4) Lactate Dehydrogenase 503 U/L (81-234) Height (Feet): 5 Height (Inches): 5.00 Weight (Pounds): 132 Objective PHYSICAL EXAMINATION: VITAL SIGNS: Have been reviewed GENERAL: The patient is a well-developed and well-nourished female, in no apparent distress. HEENT: Eyes, pupils are equal and responsive to light and accommodation. Extraocular movements are intact. NECK: Supple without lymphadenopathy. CHEST: Lungs are clear to auscultation bilaterally without wheezes or rales. CARDIOVASCULAR: Regular rhythm and rate. S1, S2 normal without murmurs, rubs, or gallops. ABDOMEN: Soft, nontender, nondistended. Positive bowel sounds. No evidence of hepatosplenomegaly. Currently, no rebound or guarding noted. EXTREMITIES: Negative for clubbing, cyanosis, edema. RECTAL/GENITAL: Not performed. NEUROLOGIC: Cranial nerves II through XII are grossly intact without focal deficits. Motor strength is 5/5 bilaterally. Deep tendon reflexes are 2+ plantar. Best Kaplan MD Aug 07, 2018 08:16
[2018-08-07] MEDS ORDERED: Metoprolol Tartrate 50mg tab ORAL SCH (09:00)
--- NOTE | 2018-08-07 09:17 | Cardiac Electrophysiology PN ---
Assessment/Plan Assessment/Plan 1. Atrial fibrillation with rapid ventricular response. On metoprolol 50 bid, amiodarone 200 mg b.i.d. and digoxin 0.125. Resume Pradaxa Dig level 1.4 on 08/03/18 Decrease amio to 200 daily 2. Status post [employer] pacemaker generator change 08/04/18 3. Hypertension and diastolic dysfunction with BNP>69493 and EF 65%. Continue metoprolol 50 mg b.i.d. and Lasix 40 po daily 4. Polycythemia vera. The patient is on hydroxyurea. 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 6. Abdominal Pain, weight loss. S/P EGD . FU GI and surgery. DW RN and Dr Hinkle Subjective Subjective No CP or SOB. Had EGD yesterday. Remained Paced Objective Last 24 Hour Vital Signs Date Time Temp Pulse Resp B/P (MAP) Pulse Ox O2 Delivery O2 Flow Rate FiO2 08/07/18 08:00 97.3 64 18 113/58 (76) 96 08/07/18 04:00 98.0 61 18 137/63 (87) 96 08/07/18 04:00 61 08/07/18 00:00 97.6 63 18 109/59 (76) 96 08/06/18 21:00 Room Air 08/06/18 21:00 66 92/51 08/06/18 20:00 68 08/06/18 20:00 97.8 68 18 115/60 (78) 95 08/06/18 16:00 92 08/06/18 16:00 98.1 80 18 92/55 (67) 97 08/06/18 12:00 97.6 78 18 104/61 (75) 97 08/06/18 12:00 79 08/06/18 09:28 72 Intake and Output 08/06/18 08/07/18 18:59 06:59 Intake Total 800 ml Balance 800 ml Intake Oral 700 ml IV Total 100 ml # Voids 6 4 Laboratory Tests Test 08/06/18 10:25 08/07/18 04:50 White Blood Count 6.4 K/UL (4.8-10.8) 6.1 K/UL (4.8-10.8) Red Blood Count 3.92 M/UL (4.20-5.40) L 3.49 M/UL (4.20-5.40) L Hemoglobin 11.0 G/DL (12.0-16.0) L 10.1 G/DL (12.0-16.0) L Hematocrit 34.7 % (37.0-47.0) L 31.1 % (37.0-47.0) L Mean Corpuscular Volume 89 FL (80-99) 89 FL (80-99) Mean Corpuscular Hemoglobin 28.1 PG (27.0-31.0) 28.9 PG (27.0-31.0) Mean Corpuscular Hemoglobin Concent 31.7 G/DL (32.0-36.0) L 32.3 G/DL (32.0-36.0) Red Cell Distribution Width 21.9 % (11.6-14.8) H 22.5 % (11.6-14.8) H Platelet Count 158 K/UL (150-450) 156 K/UL (150-450) Mean Platelet Volume 9.5 FL (6.5-10.1) 10.9 FL (6.5-10.1) H Neutrophils (%) (Auto) 82.4 % (45.0-75.0) H 83.9 % (45.0-75.0) H Lymphocytes (%) (Auto) 11.4 % (20.0-45.0) L 10.8 % (20.0-45.0) L Monocytes (%) (Auto) 3.7 % (1.0-10.0) 2.6 % (1.0-10.0) Eosinophils (%) (Auto) 0.7 % (0.0-3.0) 0.6 % (0.0-3.0) Basophils (%) (Auto) 1.8 % (0.0-2.0) 2.1 % (0.0-2.0) H Erythrocyte Sedimentation Rate 83 MM/HR (0-30) H 59 MM/HR (0-30) H Prothrombin Time 12.7 SEC (9.30-11.50) H Prothromb Time International Ratio 1.2 (0.9-1.1) H Activated Partial Thromboplast Time 33 SEC (23-33) Sodium Level 140 MMOL/L (136-145) 139 MMOL/L (136-145) Potassium Level 3.9 MMOL/L (3.5-5.1) 3.3 MMOL/L (3.5-5.1) L Chloride Level 104 MMOL/L (98-107) 101 MMOL/L (98-107) Carbon Dioxide Level 25 MMOL/L (21-32) 30 MMOL/L (21-32) Blood Urea Nitrogen 13 mg/dL (7-18) 12 mg/dL (7-18) Creatinine 0.8 MG/DL (0.55-1.30) 0.9 MG/DL (0.55-1.30) Estimat Glomerular Filtration Rate mL/min (>60) mL/min (>60) Glucose Level 92 MG/DL (74-106) 80 MG/DL (74-106) Calcium Level 8.9 MG/DL (8.5-10.1) 8.9 MG/DL (8.5-10.1) Total Bilirubin 0.5 MG/DL (0.2-1.0) 0.5 MG/DL (0.2-1.0) Aspartate Amino Transf (AST/SGOT) 21 U/L (15-37) 16 U/L (15-37) Alanine Aminotransferase (ALT/SGPT) 9 U/L (12-78) L 6 U/L (12-78) L Alkaline Phosphatase 86 U/L (46-116) 77 U/L (46-116) C-Reactive Protein, Quantitative 3.9 mg/dL (0.00-0.90) H Total Protein 6.8 G/DL (6.4-8.2) 6.3 G/DL (6.4-8.2) L Albumin 2.7 G/DL (3.4-5.0) L 2.9 G/DL (3.4-5.0) L Globulin 4.1 g/dL 3.4 g/dL Albumin/Globulin Ratio 0.7 (1.0-2.7) L 0.9 (1.0-2.7) L Amylase Level 22 U/L (25-115) L Lipase 80 U/L (73-393) Reticulocyte Count 2.2 % (0.5-2.0) H Anion Gap 8 mmol/L (5-15) Phosphorus Level 3.0 MG/DL (2.5-4.9) Magnesium Level 1.9 MG/DL (1.8-2.4) Lactate Dehydrogenase 503 U/L (81-234) H Objective HEAD AND NECK: Mild JVD. LUNGS: Decreased breath sounds. CARDIOVASCULAR: regular S1 and S2 with no gallop or murmur New Pacemaker left subclavian no hematoma or oozing. ABDOMEN: Soft. EXTREMITIES: No pitting edema. River Freitas MD Aug 07, 2018 09:17
[2018-08-07] MEDS ORDERED: Amiodarone 200mg tab ORAL SCH (09:18)
[2018-08-07] MEDS: Dabigatran 150mg cap ORAL SCH (09:35)
[2018-08-07] MEDS: Furosemide 40mg tab ORAL SCH (09:36)
[2018-08-07] MEDS: Digoxin 0.125mg tab ORAL SCH (09:36)
--- NOTE | 2018-08-07 10:49 | Infectious Diseases Prog Note ---
Assessment/Plan Assessment/Plan Assessment/Plan: 78 yo female with PMHx of HTN, CHF, CAD s/p [place] s/p pacemaker , KELVIN, HLD and Afib who presented to the ED on 07/30/18 with fever. UTI, sp Rx UCx - Strep viridans Fever resoved No leukcoytosis Bcx neg Abd pain- likely referred from rib fractures -CT abd/p: There are acute nondisplaced fractures involving the right anterolateral 8, 9 and 10th ribs. There is associated adjacent subcutaneous reticulation c/w contusion. Splenomegaly. 3 cm cyst within the spleen probably complex with at least one or 2 septations. Trace right pleural effusion. Gallbladder sludge versus stones. Other incidental findings as above. -HIDA scan: Low gallbladder ejection fraction. Consider gallbladder or biliary dyskinesia. Afib Anemia Abd pain -08/06 sp EGD: Normal upper endoscopy, status post biopsy. HTN CHF CAD s/p [place] s/p pacemaker -08/04 SP Status post [employer] pacemaker generator change 08/04/18 KELVIN HLD PLAN: - D/c Zainab-op Ancef (after PPM generator change) and monitor off abx -08/04 Amoxicillin #2 - 08/03 S/P Ceftriaxone #6 - Monitor CBC and Temps Thank you for this consult. We will continue to follow the patient during this hospitalization Subjective Allergies: Coded Allergies: No Known Allergies (Unverified , 04/24/18) Subjective aFebrile no leukocytosis Objective Vital Signs Last 24 Hour Vital Signs Date Time Temp Pulse Resp B/P (MAP) Pulse Ox O2 Delivery O2 Flow Rate FiO2 08/07/18 09:41 68 118/68 08/07/18 09:36 64 08/07/18 08:00 97.3 64 18 113/58 (76) 96 08/07/18 04:00 98.0 61 18 137/63 (87) 96 08/07/18 04:00 61 08/07/18 00:00 97.6 63 18 109/59 (76) 96 08/06/18 21:00 Room Air 08/06/18 21:00 66 92/51 08/06/18 20:00 68 08/06/18 20:00 97.8 68 18 115/60 (78) 95 08/06/18 16:00 92 08/06/18 16:00 98.1 80 18 92/55 (67) 97 08/06/18 12:00 97.6 78 18 104/61 (75) 97 08/06/18 12:00 79 Height (Feet): 5 Height (Inches): 5.00 Weight (Pounds): 132 Objective Gen: NAD HEENT: NCAT, MMM, EOMI, PERRL, No Oral lesion, no scleral icterus NECK: full range of motion, supple, no meningismus, No LAD, No JVD LUNGS: CTAB, No W/C, No Accessory muscle use CARDS: RRR, S1, S2, No M/R/G, ABD: Soft, NT, ND, No R/G, + BS, No HSM, No Masses : Deferred Ext: C/C/E, Pulses 2+ B/L (DP, Rad): NEURO: A/O x 4, Strength and Sensation Grossly intact PSYCH: Normal mood and affect SKIN: Warm/dry, No rashes Laboratory Tests Test 08/07/18 04:50 White Blood Count 6.1 K/UL (4.8-10.8) Red Blood Count 3.49 M/UL (4.20-5.40) L Hemoglobin 10.1 G/DL (12.0-16.0) L Hematocrit 31.1 % (37.0-47.0) L Mean Corpuscular Volume 89 FL (80-99) Mean Corpuscular Hemoglobin 28.9 PG (27.0-31.0) Mean Corpuscular Hemoglobin Concent 32.3 G/DL (32.0-36.0) Red Cell Distribution Width 22.5 % (11.6-14.8) H Platelet Count 156 K/UL (150-450) Mean Platelet Volume 10.9 FL (6.5-10.1) H Neutrophils (%) (Auto) 83.9 % (45.0-75.0) H Lymphocytes (%) (Auto) 10.8 % (20.0-45.0) L Monocytes (%) (Auto) 2.6 % (1.0-10.0) Eosinophils (%) (Auto) 0.6 % (0.0-3.0) Basophils (%) (Auto) 2.1 % (0.0-2.0) H Erythrocyte Sedimentation Rate 59 MM/HR (0-30) H Reticulocyte Count 2.2 % (0.5-2.0) H Sodium Level 139 MMOL/L (136-145) Potassium Level 3.3 MMOL/L (3.5-5.1) L Chloride Level 101 MMOL/L (98-107) Carbon Dioxide Level 30 MMOL/L (21-32) Anion Gap 8 mmol/L (5-15) Blood Urea Nitrogen 12 mg/dL (7-18) Creatinine 0.9 MG/DL (0.55-1.30) Estimat Glomerular Filtration Rate mL/min (>60) Glucose Level 80 MG/DL (74-106) Calcium Level 8.9 MG/DL (8.5-10.1) Phosphorus Level 3.0 MG/DL (2.5-4.9) Magnesium Level 1.9 MG/DL (1.8-2.4) Total Bilirubin 0.5 MG/DL (0.2-1.0) Aspartate Amino Transf (AST/SGOT) 16 U/L (15-37) Alanine Aminotransferase (ALT/SGPT) 6 U/L (12-78) L Alkaline Phosphatase 77 U/L (46-116) Lactate Dehydrogenase 503 U/L (81-234) H Total Protein 6.3 G/DL (6.4-8.2) L Albumin 2.9 G/DL (3.4-5.0) L Globulin 3.4 g/dL Albumin/Globulin Ratio 0.9 (1.0-2.7) L Current Medications Medications (Trade) Dose Ordered Sig/Escobar Route PRN Reason Start Time Stop Time Status Last Admin Dose Admin Acetaminophen (Tylenol) 650 mg Q6H PRN ORAL FHMP 08/04/18 13:30 09/03/18 13:29 08/04/18 20:23 Acetaminophen/ Codeine Phosphate (Tylenol #3) 1 tab Q4H PRN ORAL Moderate Pain (Pain Scale 4-6) 08/04/18 13:30 08/11/18 13:29 Amiodarone HCl (Cordarone) 200 mg DAILY ORAL 08/07/18 09:18 09/06/18 09:17 08/07/18 09:37 Cefazolin Sodium 1 gm/Dextrose 55 ml @ 110 mls/hr Q8HR@0500,1300,2100 IVP 08/04/18 21:00 08/11/18 20:59 08/07/18 05:21 Dabigatran (Pradaxa) 150 mg EVERY 12 HOURS ORAL 08/06/18 21:00 09/05/18 20:59 08/07/18 09:35 Dextrose (Dextrose 50%) 25 ml Q30M PRN IV Hypoglycemia 07/29/18 10:45 08/28/18 07:03 Dextrose (Dextrose 50%) 50 ml Q30M PRN IV hypoglycemia 07/29/18 10:45 08/28/18 07:14 Digoxin (Lanoxin) 0.125 mg DAILY ORAL 07/30/18 09:00 08/29/18 08:59 08/07/18 09:36 Escitalopram Oxalate (Lexapro) 10 mg DAILY ORAL 07/30/18 09:00 08/28/18 08:59 08/07/18 09:36 Furosemide (Lasix) 40 mg DAILY ORAL 08/03/18 09:00 09/02/18 08:59 08/07/18 09:36 Metoprolol Tartrate (Lopressor) 50 mg EVERY 12 HOURS ORAL 08/07/18 09:00 08/28/18 08:59 08/07/18 09:41 Morphine Sulfate (Morphine Sulfate) 2 mg Q1H PRN IVP Severe Pain (Pain Scale 7-10) 08/04/18 13:31 08/11/18 13:30 Ondansetron HCl (Zofran) 4 mg Q6H PRN IVP Nausea & Vomiting 08/04/18 13:30 09/03/18 13:29 Polyethylene Glycol (Miralax) 17 gm HSPRN PRN ORAL Constipation 07/29/18 21:00 08/28/18 20:59 Promethazine HCl/ Codeine (Phenergan with Codeine) 5 ml Q6H PRN ORAL For Cough 08/03/18 20:15 09/02/18 20:14 08/03/18 20:51 Alejandrina Arrieta M.D. Aug 07, 2018 10:49
--- NOTE | 2018-08-07 11:18 | General Progress Note ---
Assessment/Plan Assessment/Plan: Assessment - rib fractures, cause of (R) sided chest / torso pain - (L) antecubital fossa phlebitis - Anorexia - 10 lb weight loss - anemia - afib - s/p pacer generator change Recommendations - CT scan abd/pelvis --> gallstone vs sludge, (R) rib fractures - check stool OB --> negative - HIDA / CCK --> decreased EF, likely incidental - Abx per ID Subjective Allergies: Coded Allergies: No Known Allergies (Unverified , 04/24/18) Subjective above noted no new complaints d/w patient re CT and EGD findings Objective Last 24 Hour Vital Signs Date Time Temp Pulse Resp B/P (MAP) Pulse Ox O2 Delivery O2 Flow Rate FiO2 08/07/18 09:41 68 118/68 08/07/18 09:36 64 08/07/18 09:00 Room Air 08/07/18 08:00 97.3 64 18 113/58 (76) 96 08/07/18 08:00 64 08/07/18 04:00 98.0 61 18 137/63 (87) 96 08/07/18 04:00 61 08/07/18 00:00 97.6 63 18 109/59 (76) 96 08/06/18 21:00 Room Air 08/06/18 21:00 66 92/51 08/06/18 20:00 68 08/06/18 20:00 97.8 68 18 115/60 (78) 95 08/06/18 16:00 92 08/06/18 16:00 98.1 80 18 92/55 (67) 97 08/06/18 12:00 97.6 78 18 104/61 (75) 97 08/06/18 12:00 79 Intake and Output 08/06/18 08/07/18 18:59 06:59 Intake Total 800 ml Balance 800 ml Intake Oral 700 ml IV Total 100 ml # Voids 6 4 Laboratory Tests 08/07/18 04:50: White Blood Count 6.1, Red Blood Count 3.49L, Hemoglobin 10.1L, Hematocrit 31.1L , Mean Corpuscular Volume 89, Mean Corpuscular Hemoglobin 28.9, Mean Corpuscular Hemoglobin Concent 32.3, Red Cell Distribution Width 22.5H, Platelet Count 156, Mean Platelet Volume 10.9H, Neutrophils (%) (Auto) 83.9H, Lymphocytes (%) (Auto) 10.8L, Monocytes (%) (Auto) 2.6, Eosinophils (%) (Auto) 0.6, Basophils (%) (Auto) 2.1H, Erythrocyte Sedimentation Rate 59H, Reticulocyte Count 2.2H, Sodium Level 139, Potassium Level 3.3L, Chloride Level 101, Carbon Dioxide Level 30, Anion Gap 8, Blood Urea Nitrogen 12, Creatinine 0.9, Estimat Glomerular Filtration Rate , Glucose Level 80, Calcium Level 8.9, Phosphorus Level 3.0, Magnesium Level 1.9, Total Bilirubin 0.5, Aspartate Amino Transf (AST/SGOT) 16, Alanine Aminotransferase (ALT/SGPT) 6L, Alkaline Phosphatase 77, Lactate Dehydrogenase 503H, Total Protein 6.3L, Albumin 2.9L, Globulin 3.4, Albumin/Globulin Ratio 0.9L Height (Feet): 5 Height (Inches): 5.00 Weight (Pounds): 132 Objective WDWN NCAT supple CTA RR abd soft ND, ? minimal TTP RUQ no edema (+) (L) anticubital fossa redness, induration, and TTP Juwan Andrade MD Aug 07, 2018 11:18
--- NOTE | 2018-08-07 11:47 | Pulmonology Progress Note ---
Assessment/Plan Problems: (1) RUQ abdominal pain (2) Pacemaker (3) COPD (chronic obstructive pulmonary disease) (4) Atrial fibrillation (5) Pulmonary edema (6) Acute encephalopathy (7) CAD (coronary artery disease) (8) KELVIN (obstructive sleep apnea) (9) Peripheral neuropathy Assessment/Plan pacemaker battery was changed on lasix bid, pt incontinent, difficult to measure output watch bun/creatinine titrate cardiac meds, still tachycardic symptomatic treatment check electrolytes EGD done yesterday dvt prophylaxis. Subjective ROS Limited/Unobtainable: No Constitutional: Reports: no symptoms HEENT: Repors: no symptoms Allergies: Coded Allergies: No Known Allergies (Unverified , 04/24/18) Objective Last 24 Hour Vital Signs Date Time Temp Pulse Resp B/P (MAP) Pulse Ox O2 Delivery O2 Flow Rate FiO2 08/07/18 09:41 68 118/68 08/07/18 09:36 64 08/07/18 09:00 Room Air 08/07/18 08:00 97.3 64 18 113/58 (76) 96 08/07/18 08:00 64 08/07/18 04:00 98.0 61 18 137/63 (87) 96 08/07/18 04:00 61 08/07/18 00:00 97.6 63 18 109/59 (76) 96 08/06/18 21:00 Room Air 08/06/18 21:00 66 92/51 08/06/18 20:00 68 08/06/18 20:00 97.8 68 18 115/60 (78) 95 08/06/18 16:00 92 08/06/18 16:00 98.1 80 18 92/55 (67) 97 08/06/18 12:00 97.6 78 18 104/61 (75) 97 08/06/18 12:00 79 Intake and Output 08/06/18 08/07/18 18:59 06:59 Intake Total 800 ml Balance 800 ml Intake Oral 700 ml IV Total 100 ml # Voids 6 4 Objective General Appearance: WD/WN, no acute distress Respiratory/Chest: chest wall non-tender, lungs clear Cardiovascular: normal peripheral pulses, normal rate Abdomen: normal bowel sounds, non distended Extremities: no cyanosis, no clubbing Laboratory Tests 08/07/18 04:50: White Blood Count 6.1, Red Blood Count 3.49L, Hemoglobin 10.1L, Hematocrit 31.1L , Mean Corpuscular Volume 89, Mean Corpuscular Hemoglobin 28.9, Mean Corpuscular Hemoglobin Concent 32.3, Red Cell Distribution Width 22.5H, Platelet Count 156, Mean Platelet Volume 10.9H, Neutrophils (%) (Auto) 83.9H, Lymphocytes (%) (Auto) 10.8L, Monocytes (%) (Auto) 2.6, Eosinophils (%) (Auto) 0.6, Basophils (%) (Auto) 2.1H, Erythrocyte Sedimentation Rate 59H, Reticulocyte Count 2.2H, Sodium Level 139, Potassium Level 3.3L, Chloride Level 101, Carbon Dioxide Level 30, Anion Gap 8, Blood Urea Nitrogen 12, Creatinine 0.9, Estimat Glomerular Filtration Rate , Glucose Level 80, Calcium Level 8.9, Phosphorus Level 3.0, Magnesium Level 1.9, Total Bilirubin 0.5, Aspartate Amino Transf (AST/SGOT) 16, Alanine Aminotransferase (ALT/SGPT) 6L, Alkaline Phosphatase 77, Lactate Dehydrogenase 503H, Total Protein 6.3L, Albumin 2.9L, Globulin 3.4, Albumin/Globulin Ratio 0.9L Current Medications Medications (Trade) Dose Ordered Sig/Escobar Route PRN Reason Start Time Stop Time Status Last Admin Dose Admin Acetaminophen (Tylenol) 650 mg Q6H PRN ORAL FHMP 08/04/18 13:30 09/03/18 13:29 08/04/18 20:23 Acetaminophen/ Codeine Phosphate (Tylenol #3) 1 tab Q4H PRN ORAL Moderate Pain (Pain Scale 4-6) 08/04/18 13:30 08/11/18 13:29 Amiodarone HCl (Cordarone) 200 mg DAILY ORAL 08/07/18 09:18 09/06/18 09:17 08/07/18 09:37 Dabigatran (Pradaxa) 150 mg EVERY 12 HOURS ORAL 08/06/18 21:00 09/05/18 20:59 08/07/18 09:35 Dextrose (Dextrose 50%) 25 ml Q30M PRN IV Hypoglycemia 07/29/18 10:45 08/28/18 07:03 Dextrose (Dextrose 50%) 50 ml Q30M PRN IV hypoglycemia 07/29/18 10:45 08/28/18 07:14 Digoxin (Lanoxin) 0.125 mg DAILY ORAL 07/30/18 09:00 08/29/18 08:59 08/07/18 09:36 Escitalopram Oxalate (Lexapro) 10 mg DAILY ORAL 07/30/18 09:00 08/28/18 08:59 08/07/18 09:36 Furosemide (Lasix) 40 mg DAILY ORAL 08/03/18 09:00 09/02/18 08:59 08/07/18 09:36 Metoprolol Tartrate (Lopressor) 50 mg EVERY 12 HOURS ORAL 08/07/18 09:00 08/28/18 08:59 08/07/18 09:41 Morphine Sulfate (Morphine Sulfate) 2 mg Q1H PRN IVP Severe Pain (Pain Scale 7-10) 08/04/18 13:31 08/11/18 13:30 Ondansetron HCl (Zofran) 4 mg Q6H PRN IVP Nausea & Vomiting 08/04/18 13:30 09/03/18 13:29 Polyethylene Glycol (Miralax) 17 gm HSPRN PRN ORAL Constipation 07/29/18 21:00 08/28/18 20:59 Promethazine HCl/ Codeine (Phenergan with Codeine) 5 ml Q6H PRN ORAL For Cough 08/03/18 20:15 09/02/18 20:14 08/03/18 20:51 Kelly Mejia MD Aug 07, 2018 11:47
[2018-08-07] MEDS ORDERED: ACETAMINOPHEN-1 EAC1 ORAL (11:48)
[2018-08-07 12:00] VITALS: BP 123/63
--- NOTE | 2018-08-07 12:02 | NUR ---
RD ASSESSMENT & RECOMMENDATIONS SEE CARE ACTIVITY FOR COMPLETE ASSESSMENT DAILY ESTIMATED NEEDS: Needs based on Cardiac/ 61kg 25-30kcal/kg kcals/kg 3806-3059 total kcals 1-1.2 g protein/kg 61-73 g total protein Fluid per MD, on lasix NUTRITION DIAGNOSIS: Decreased sodium needs r/t cardiac history and clinical status as evidenced by pt w/ CHF, elev BNP (77072-> 4815), on lasix. CURRENT DIET: Cardiac PO DIET RECOMMENDATIONS -->> Low Sodium/ Soft easy chew ADDITIONAL RECOMMENDATIONS: 1) Recalibrated bed scale wts for accurate CBW 2) Check lytes daily w/ lasix (K low 3.3) 3) Ensure Enlive TID w/ meals (350kcal/20g prot per bottle) 4) MVI x 1 5) Monitor PO intake closely-fair intake now. .
--- NOTE | 2018-08-07 12:31 | Diagnostic Imaging Report ---
APPROVED REPORT CPT Code: 72668 Present Symptoms Upper Extremity Pain: Upper Extremity Edema: LEFT UPPER EXTREMITY: Venous imaging reveals patency of the internal jugular, subclavian, axillary and brachial veins. The cephalic and basilic veins are also patent. Doppler indicates normal spontaneous flow within these venous segments.
--- NOTE | 2018-08-07 14:01 | NUR ---
PT Note Attempted to see patient for treatment, but patient refused adamantly. Will attempt again in AM. RN is aware.
--- NOTE | 2018-08-07 14:10 | NUR ---
NURSE NOTES: Discharge instruction give and patient verbalized understanding. Patient is in stable condition, no acute distress/SOB noted. Vital signs are in stable condition. Heart monitor and IV removed, No bleeding or infiltration noted. Belonging check done and signed by granddaughter. Escorted to downstairs via wheelchair. Patient left with granddaughter via private vehicle.
[2018-08-07] MEDS ORDERED: Tubing IV Secondary IV ONE (14:17)
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
== END 2018-08-07 14:18 | disposition home or self-care (01) | DRG 258 ==
LOC: EMR 02:40 → 4E 03:31 → EDBEDREQ 03:55 → 2E 05:13
PROC: 0JPT0PZ Removal of Cardiac Rhythm Related Device from Trunk Subcutaneous Tissue and Fascia, Open Approach (ICD-10-PCS; principal; 2018-08-04 13:00)
PROC: 0JH606Z Insertion of Pacemaker, Dual Chamber into Chest Subcutaneous Tissue and Fascia, Open Approach (ICD-10-PCS; principal; 2018-08-04 13:00)
PROC: 0DB68ZX Excision of Stomach, Via Natural or Artificial Opening Endoscopic, Diagnostic (ICD-10-PCS; 2018-08-06)
DX: I11.0 Hypertensive heart disease with heart failure (principal); J18.9 Pneumonia, unspecified organism; S22.41XA Multiple fractures of ribs, right side, initial encounter for closed fracture; G93.49 Other encephalopathy; J44.0 Chronic obstructive pulmonary disease with (acute) lower respiratory infection; N39.0 Urinary tract infection, site not specified; I50.33 Acute on chronic diastolic (congestive) heart failure; D45 Polycythemia vera; E87.6 Hypokalemia; K59.00 Constipation, unspecified; D63.8 Anemia in other chronic diseases classified elsewhere; B95.4 Other streptococcus as the cause of diseases classified elsewhere; R63.4 Abnormal weight loss; R63.0 Anorexia; R53.1 Weakness; Z45.010 Encounter for checking and testing of cardiac pacemaker pulse generator [battery]; I48.0 Paroxysmal atrial fibrillation; R32 Unspecified urinary incontinence; X58.XXXA Exposure to other specified factors, initial encounter; Y99.8 Other external cause status; K80.20 Calculus of gallbladder without cholecystitis without obstruction; K82.8 Other specified diseases of gallbladder; R42 Dizziness and giddiness; I25.10 Atherosclerotic heart disease of native coronary artery without angina pectoris; I25.2 Old myocardial infarction; G47.33 Obstructive sleep apnea (adult) (pediatric); G62.9 Polyneuropathy, unspecified; E78.00 Pure hypercholesterolemia, unspecified; Z68.22 Body mass index [BMI] 22.0-22.9, adult; R29.6 Repeated falls; Z91.81 History of falling; Z86.73 Personal history of transient ischemic attack (TIA), and cerebral infarction without residual deficits; Z90.710 Acquired absence of both cervix and uterus
CPT/HCPCS: 36415; 70450; 71045; 74177; 76700; 78266; 80048; 80053; 80061; 80162; 81003; 82150; 82248; 82270; 82378; 82550; 82553; 82607; 82746; 83036; 83540; 83550; 83615; 83690; 83735; 83880; 84100; 84443; 84484; 85007; 85025; 85044; 85060; 85610; 85651; 85730; 86140; 87040; 87086; 92610; 93005; 93306; 93971; 94003; 94150; 96365; 99285; J2250; J8499

== ENCOUNTER 2018-10-20 15:33 | Emergency (ER) | payer MEDICARE, OTHER ==
[~2018-10-20] VITALS: Ht 160 cm; Wt 59.0 kg
[~2018-10-20 15:33] MED LIST changes: +ACETAMINOPHEN-1 EAC1 ORAL; +BENADRYL25 MG ORAL; +MIRTAZAPINE15 M3 ORAL; +OMEPRAZOLE20 M2 ORAL
[2018-10-20 15:40] VITALS: BP 126/74
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
[2018-10-20] MEDS ORDERED: Lidocaine HCl 2% Jelly 6ml Tube TOPIC ONE ×2 (16:07→16:15)
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
[2018-10-20] MEDS ORDERED: LD2JL30 TOPIC (16:31)
[2018-10-20 17:00] VITALS: BP 123/67
--- NOTE | 2018-10-20 17:01 | NUR ---
ED Nurse Note: Pt cleared by health care Provider for discharge. DC instructions/prescription was given and explained to pt and verbalized understanding of teachings. All medical deviecs such as ID band removed. Pt is AAO x4, ambulatory with a cane and left with all personal belongings. pt's nephew picked pt up.
== END 2018-10-20 17:02 | disposition home or self-care (01) ==
LOC: EMR 16:10 → EDBD 16:10 → EMR 17:02
DX: R20.3 Hyperesthesia (principal); M79.652 Pain in left thigh; M79.651 Pain in right thigh; I11.0 Hypertensive heart disease with heart failure; I50.9 Heart failure, unspecified; Z95.0 Presence of cardiac pacemaker; Z86.73 Personal history of transient ischemic attack (TIA), and cerebral infarction without residual deficits
CPT/HCPCS: 99282

== ENCOUNTER 2019-03-17 12:19 | Outpatient (CLI) | payer MEDICARE, OTHER ==
[~2019-03-17 12:19] MED LIST changes: +LD2JL30 TOPIC
[2019-03-17 13:30] LABS: BASOPHILS % (AUTO) 1.9 % (0.0-2.0); EOSINOPHILS % (AUTO) 0.6 % (0.0-3.0); HEMATOCRIT 30.8 % (37.0-47.0); HEMOGLOBIN 10.1 G/DL (12.0-16.0); LYMPHOCYTES % (AUTO) 12.5 % (20.0-45.0); MEAN CORPUSCULAR VOLUME 96 FL (80-99); MONOCYTES % (AUTO) 1.9 % (1.0-10.0); NEUTROPHILS % (AUTO) 83.1 % (45.0-75.0); PLATELET COUNT 270 K/UL (150-450); RED BLOOD COUNT 3.22 M/UL (4.20-5.40); RED CELL DISTRIBUTION WIDTH 21.4 % (11.6-14.8); WHITE BLOOD COUNT 12.3 K/UL (4.8-10.8)
[2019-03-17 13:36] LABS: INR 1.1 (0.9-1.1)
[2019-03-17 13:52] LABS: ALANINE AMINOTRANSFERASE 18 U/L (12-78); ALBUMIN 3.4 G/DL (3.4-5.0); ALKALINE PHOSPHATASE 83 U/L (46-116); ANION GAP 7 mmol/L (5-15); ASPARTATE AMINO TRANSFERASE 21 U/L (15-37); BILIRUBIN,TOTAL 0.5 MG/DL (0.2-1.0); BLOOD UREA NITROGEN 17 mg/dL (7-18); CALCIUM 8.8 MG/DL (8.5-10.1); CARBON DIOXIDE 27 MMOL/L (21-32); CHLORIDE 106 MMOL/L (98-107); CHOLESTEROL 121 MG/DL (< 200); CREATININE 0.8 MG/DL (0.55-1.30); HDL CHOLESTEROL 36 MG/DL (40-60); PHOSPHORUS 3.2 MG/DL (2.5-4.9); SODIUM 140 MMOL/L (136-145); TRIGLYCERIDES 148 MG/DL (30-150)
== END 2019-03-17 14:19 | disposition home or self-care (01) ==
LOC: EDBD → LAB 12:19
DX: R53.83 Other fatigue (principal); N39.0 Urinary tract infection, site not specified; I48.91 Unspecified atrial fibrillation; Z79.01 Long term (current) use of anticoagulants; E78.00 Pure hypercholesterolemia, unspecified; I10 Essential (primary) hypertension; D75.1 Secondary polycythemia
CPT/HCPCS: 36415; 80053; 80061; 82306; 82607; 82747; 83036; 83735; 84100; 84443; 85025; 85610; 85730

== ENCOUNTER 2019-04-27 10:46 | Outpatient (CLI) | payer MEDICARE, OTHER ==
--- NOTE | 2019-04-27 13:51 | Diagnostic Imaging Report ---
Indication: Cough Technique: 2 views of the chest Comparison: 08/04/2018 Findings: The lungs and pleural spaces are clear. The heart size is normal. The aorta is tortuous. Bones are unremarkable. Left chest pacemaker is again demonstrated. Impression: No acute process
== END 2019-04-27 12:46 | disposition home or self-care (01) ==
LOC: RAD 10:46
DX: R05 Cough (principal); Z95.0 Presence of cardiac pacemaker
CPT/HCPCS: 71046

== ENCOUNTER 2019-06-22 14:38 | Inpatient (IN) | payer MEDICARE, OTHER ==
[~2019-06-22] VITALS: Ht 152.4 cm; Wt 61.7 kg
[2019-06-22 15:04] VITALS: BP 95/62
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
[2019-06-22] MEDS ORDERED: Omnipaque-300 100ml vial INJ PRN (15:15)
--- NOTE | 2019-06-22 15:15 | NUR ---
ED Nurse Note: Noted pt's skin is pale and states, " i feel cold, can you give me a blanket."?
--- NOTE | 2019-06-22 15:30 | NUR ---
ED Nurse Note: Collected blood specimen then sent.
[2019-06-22 16:01] LABS: ANION GAP 9 mmol/L (5-15); BLOOD UREA NITROGEN 24 mg/dL (7-18); CALCIUM 8.2 MG/DL (8.5-10.1); CARBON DIOXIDE 23 MMOL/L (21-32); CHLORIDE 105 MMOL/L (98-107); INR 1.2 (0.9-1.1); POTASSIUM 4.3 MMOL/L (3.5-5.1); SODIUM 137 MMOL/L (136-145)
--- NOTE | 2019-06-22 16:02 | NUR ---
ED Nurse Note: Urine specimen sent to lab.
[2019-06-22 16:03] LABS: HEMATOCRIT 18.6 % (37.0-47.0); MEAN CORPUSCULAR VOLUME 100 FL (80-99); PLATELET COUNT 250 K/UL (150-450); RED BLOOD COUNT 1.87 M/UL (4.20-5.40); RED CELL DISTRIBUTION WIDTH 26.1 % (11.6-14.8); WHITE BLOOD COUNT 7.1 K/UL (4.8-10.8)
[2019-06-22 16:06] LABS: APPEARANCE,URINE CLEAR; BILIRUBIN, URINE NEGATIVE (NEGATIVE); GLUCOSE, URINE (UA) NEGATIVE (NEGATIVE); KETONES,URINE NEGATIVE (NEGATIVE); LEUKOCYTE ESTERASE ,URINE 3+ (NEGATIVE); NITRITE,URINE NEGATIVE (NEGATIVE); PH,URINE 5 (4.5-8.0); PROTEIN,URINE 2+ (NEGATIVE); UROBILINOGEN,URINE 1 MG/DL (0.0-1.0)
[2019-06-22 16:06] LABS: ALANINE AMINOTRANSFERASE 14 U/L (12-78); ALBUMIN 3.1 G/DL (3.4-5.0); ALBUMIN/GLOBULIN RATIO 0.9 (1.0-2.7); ALKALINE PHOSPHATASE 54 U/L (46-116); ASPARTATE AMINO TRANSFERASE 14 U/L (15-37); BILIRUBIN,TOTAL 0.6 MG/DL (0.2-1.0); CREATINE KINASE 17 U/L (26-308)
[2019-06-22 16:11] LABS: HEMOGLOBIN 5.7 G/DL (12.0-16.0)
[2019-06-22 16:12] LABS: COLOR,URINE YELLOW
[2019-06-22 17:05] VITALS: BP 105/75
--- NOTE | 2019-06-22 17:58 | NUR ---
ED Nurse Note: Informed pt of blood transfusion and instructed to report s/sx of transfusion reaction such as SOB, itchcing, back pain or CP. Ptverbalized understanding of teachings.
[2019-06-22 18:00] VITALS: BP 126/47
--- NOTE | 2019-06-22 18:02 | Emergency Room Report ---
History of Present Illness General Chief Complaint: Multiple Trauma/Fall Source: Patient (Erica Aaron) Present Illness HPI 79-year-old female with a known past medical history comes to the ED complaining of right-sided chest and abdomen pain after a fall that occurred a week ago. Patient denies any head trauma however appears to be demented. Elicits pain upon palpation of chest and abdomen. Appears to be pale and weak. Reports that she has been feeling weak prior to fall. Denies chest pain, shortness of breath, palpitation, headache and dizziness. Patient is Dr. Adrian' s patient. Patient is neurovascularly intact. No generalized or unilateral weakness noted. No slurring of speech noted however baseline the patient is unknown (Erica Aaron) Allergies: Coded Allergies: No Known Allergies (Unverified , 04/24/18) COVID-19 Screening Contact w/high risk pt: No Recent Travel to affected area: No Experienced COVID-19 symptoms?: No (Erica Aaron) Patient History Past Medical History: see triage record Past Surgical History: none Pertinent Family History: none Last Menstrual Period: na Now: No Immunizations: UTD Reviewed Nursing Documentation: PMH: Agreed; PSxH: Agreed (Erica Aaron) Nursing Documentation-PMH Past Medical History: No History, Except For Hx Cardiac Problems: Yes - CHF Hx Hypertension: Yes Hx Pacemaker: Yes Hx Asthma: No Hx COPD: No Hx Diabetes: No Hx Cancer: No Hx Gastrointestinal Problems: Yes Hx Dialysis: No Hx Neurological Problems: Yes Hx Cerebrovascular Accident: No Hx Transient Ischemic Attacks: Yes Hx Seizures: No Hx Headaches: Yes Hx Numbness: Yes Hx Weakness: Yes - Generalized weakness (Erica Aaron) Review of Systems All Other Systems: negative except mentioned in HPI (Erica Aaron) Physical Exam Vital Signs Date Time Temp Pulse Resp B/P (MAP) Pulse Ox O2 Delivery O2 Flow Rate FiO2 06/22/19 14:54 97.5 76 20 95/62 (73) 97 Room Air Sp02 EP Interpretation: reviewed, normal General Appearance: alert, mild distress Head: normocephalic, atraumatic Eyes: bilateral eye normal inspection, bilateral eye PERRL ENT: hearing grossly normal, normal pharynx, no angioedema, normal voice Neck: full range of motion, supple Respiratory: chest non-tender, lungs clear, normal breath sounds, no rhonchi, no wheezing, speaking full sentences Cardiovascular #1: regular rate, rhythm, no edema, no murmur, normal capillary refill Cardiovascular #2: 2+ carotid (R), 2+ carotid (L), 2+ radial (R), 2+ radial (L) Gastrointestinal: normal bowel sounds, non tender, soft, non-distended, no guarding, no rebound Rectal: deferred Genitourinary: no CVA tenderness Musculoskeletal: back normal, normal range of motion, no calf tenderness, gait/ station normal, non-tender Neurologic: alert, motor strength/tone normal, oriented x3, sensory intact, responsive, speech normal Psychiatric: judgement/insight normal, memory normal, mood/affect normal, no suicidal/homicidal ideation Skin: no rash Lymphatic: no adenopathy (Erica Aaron) Medical Decision Making PA Attestation All diagnoses and treatment plans were reviewed and discussed with my supervising physician Dr. Nicolas (Erica Aaron) PA Attestation I participated in the care of this patient along with REYES Chauhan Briefly, this an 79-year-old female presenting from her PMDs office over concern of rib fractures. She had a fall from standing 1 week ago complaining of right-sided chest wall pain. Unclear whether or not there was a head injury. CT scans of the head and chest were obtained as well as broad labs. Labs are concerning for a borderline macrocytic anemia. Type and screen was obtained and the patient is currently receiving transfusion. No bleed, mass or fracture appreciated on CT scan of the head. CT scan of the torso shows acute rib fractures on the right side, ribs 9 through 12, with a moderate effusion concerning for hemothorax. Vital signs including oxygenation are within normal limits. The patient is resting comfortably in her room receiving transfusion. She will be admitted to telemetry under her PMD, Dr. Adrian, for further care. (Tao Nicolas MD) Diagnostic Impression: Primary Impression: Anemia Additional Impressions: Ribs, multiple fractures Pleural effusion ER Course 79-year-old female with a known past medical history comes to the ED complaining of right-sided chest and abdomen pain after a fall that occurred a week ago. Patient denies any head trauma however appears to be demented. Elicits pain upon palpation of chest and abdomen. Appears to be pale and weak. Reports that she has been feeling weak prior to fall. Denies chest pain, shortness of breath, palpitation, headache and dizziness. Patient is Dr. Adrian' s patient. Patient is neurovascularly intact. No generalized or unilateral weakness noted. No slurring of speech noted however baseline the patient is unknown Ddx considered but are not limited to: [place], Angina, COPD, GERD, rib fracture, anemia, also level of consciousness, generalized weakness, CVA, TIA Vital signs: are WNL, pt. is afebrile H&PE are most consistent with anemia ORDERS: EKG, stroke work-up, CT chest abdomen pelvis ED INTERVENTIONS: NS bolus, blood transfusion Patient was admitted with diagnosis of anemia and fall to Dr. Adrian under supervision of : Fidencio pt stable at time of admission (Erica Aaron) EKG Diagnostic Results Rate: normal Rhythm: NSR ST Segments: no acute changes Other Impression No acute ST changes (Erica Aaron) Chest X-Ray Diagnostic Results Chest X-Ray Diagnostic Results : Chest X-Ray Ordered: Yes # of Views/Limited/Complete: 1 View Indication: Other EP Interpretation: Yes PA Xray: Interpretation reviewed, by supervising MD, and agrees with findings. Interpretation: no consolidation, no effusion, no pneumothorax Impression: No acute disease Electronically Signed by: Erica Ybarra PA-C) CT/MRI/US Diagnostic Results CT/MRI/US Diagnostic Results #1: Imaging Test Ordered: CT head no contrast Impression MPRESSION: 1. 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 2. No acute intracranial pathology is detected. 3. If there is concern for etiology such as early acute lacunar infarcts, magnetic resonance imaging of the brain with diffusion-weighted sequences should be performed for follow-up. CT/MRI/US Diagnostic Results #2: Imaging Test Ordered: CT chest abdomen pelvis Impression FINDINGS: Lungs: Subsegmental atelectasis is noted at the right lung base. Best seen on series 6 image 69, located posterior medially at the right lung base, there is a 1.5 x 0.9 cm ovoid nodule. Neoplasm or metastatic disease cannot be excluded. Minimal subsegmental atelectasis within the left mid lower lung zones. The airways patent. Pleural space: Evaluation of the right pulmonary parenchyma reveals a moderate to large right pleural effusion. No pneumothorax is noted. Heart: Cardiomegaly and ASCVD. Gentle dextro scoliosis of the thoracic spine. No significant pericardial effusion. Thyroid: Subcentimeter bilateral thyroid nodules of uncertain etiology. Bones/joints: Evaluation of the right ribs reveals acute posterior medial rib fractures involving the right 9th, 10th, 11th, and 12th ribs. Evaluation of the left ribs is unremarkable. The sternum is unremarkable. Moderate to severe degenerative disc disease of the thoracic spine. Thoracic vertebral bodies are maintained in height. Mild kyphosis. Soft tissues: Unremarkable. Vasculature: Atherosclerotic disease of the thoracic aorta. No thoracic aortic aneurysm. Lymph nodes: Unremarkable. No enlarged lymph nodes. Tubes, lines and devices: Pacemaker overlies the left upper chest. Other findings: Spinous processes are unremarkable. IMPRESSION: 1. Acute posterior medial lower right rib fractures. 2. Moderate to large right pleural effusion, possibly containing an element of the hemothorax. 3. Cardiomegaly. 4. ASCVD. 5. No pneumothoraces. (Erica Aaron) Last Vital Signs Date Time Temp Pulse Resp B/P (MAP) Pulse Ox O2 Delivery O2 Flow Rate FiO2 06/22/19 15:04 76 20 Room Air 06/22/19 15:04 97.5 95/62 99 (Erica Aaron) Disposition: ADMITTED INPATIENT Condition: Serious Referrals: Antonio Adrian MD (PCP) Erica Aaron June 22, 2019 18:01 Tao Nicolas MD June 22, 2019 18:56
--- NOTE | 2019-06-22 18:07 | Diagnostic Imaging Report ---
EXAM: CT Head Without Intravenous Contrast CLINICAL HISTORY: Trauma. Injury. Headache. TECHNIQUE: Axial computed tomography images of the head/brain without intravenous contrast. CTDI is 53.4 mGy and DLP is 1018.80 mGy-cm. One or more of the following dose reduction techniques were used: automated exposure control, adjustment of the mA and/or kV according to patient size, use of iterative reconstruction technique. COMPARISON: 08/01/2018. FINDINGS: Brain: Small vessel disease of aging. No abnormal extra-axial collection. No hemorrhage. Midline shift: No midline shift or mass-effect. Ventricles: There is prominence of the ventricular system, cortical sulci, basilar cisterns, compatible with age-related atrophy. Bones/joints: The calvarium is within normal limits. No acute fracture. Soft tissues: Unremarkable. Sinuses: Visualized sinuses are unremarkable. Mastoid air cells: Mastoid air cells are well pneumatized. IMPRESSION: 1. 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 2. No acute intracranial pathology is detected. 3. If there is concern for etiology such as early acute lacunar infarcts, magnetic resonance imaging of the brain with diffusion-weighted sequences should be performed for follow-up.
--- NOTE | 2019-06-22 18:18 | Diagnostic Imaging Report ---
EXAM: CT Abdomen and Pelvis Without Intravenous Contrast CLINICAL HISTORY: Trauma. Injury. Abdominal and pelvic pain. TECHNIQUE: Axial computed tomography images of the abdomen and pelvis without intravenous contrast. CTDI is 5.2 mGy and DLP is 324.7 mGy-cm. One or more of the following dose reduction techniques were used: automated exposure control, adjustment of the mA and/or kV according to patient size, use of iterative reconstruction technique. COMPARISON: 08/02/2018. FINDINGS: Limitations: Limited evaluation of the viscera due to lack of intravenous contrast administration. Lung bases: Unremarkable. No mass. No consolidation. ABDOMEN: Liver: The liver and the spleen are normal in contour. Gallbladder and bile ducts: The gallbladder is in a semi-contracted state containing tiny gallstones. No ductal dilation. Pancreas: Unremarkable. No ductal dilation. Spleen: A 3.1 cm cystic lesion centrally within the spleen, similar to that noted on the previous study. Adrenals: Unremarkable. No mass. Kidneys and ureters: No renal calculus or hydronephrosis. Stomach and bowel: Moderate quantity of stool throughout the colon without bowel obstruction. Diverticulosis without diverticulitis. PELVIS: Appendix: No findings to suggest acute appendicitis. Bladder: The bladder is in underdistended state but is otherwise unremarkable. No stones. Reproductive: The patient is status post hysterectomy. ABDOMEN and PELVIS: Intraperitoneal space: No free fluid. No free air. Bones/joints: The superior and inferior pubic rami are unremarkable. The hip joints are intact. Moderate osteoarthritic changes about the sacroiliac joints. Multilevel vacuum disc thoracolumbar spine. Moderate to severe degenerative disc disease of the lumbar spine. The sacrum is unremarkable. No acute fracture. No dislocation. Soft tissues: Ischiorectal fat is clean. Vasculature: Atherosclerotic disease of the abdominal aorta without change in caliber. Lymph nodes: No retroperitoneal lymphadenopathy. Surgical clips are noted in the retroperitoneal region suggests a previous lymph node dissection. No pelvic or inguinal lymphadenopathy. Other findings: Probable hemorrhoids. IMPRESSION: 1. No evidence of acute injury to the abdominal or pelvic viscera. 2. Somewhat limited study due to motion artifact. 3. Cholelithiasis. EXAM: CT Chest Without Intravenous Contrast CLINICAL HISTORY: Trauma. Injury. Abdominal and pelvic pain. TECHNIQUE: Axial computed tomography images of the chest without intravenous contrast. CTDI is 5.2 mGy and DLP is 324.7 mGy-cm. One or more of the following dose reduction techniques were used: automated exposure control, adjustment of the mA and/or kV according to patient size, use of iterative reconstruction technique. COMPARISON: None. FINDINGS: Lungs: Subsegmental atelectasis is noted at the right lung base. Best seen on series 6 image 69, located posterior medially at the right lung base, there is a 1.5 x 0.9 cm ovoid nodule. Neoplasm or metastatic disease cannot be excluded. Minimal subsegmental atelectasis within the left mid lower lung zones. The airways patent. Pleural space: Evaluation of the right pulmonary parenchyma reveals a moderate to large right pleural effusion. No pneumothorax is noted. Heart: Cardiomegaly and ASCVD. Gentle dextro scoliosis of the thoracic spine. No significant pericardial effusion. Thyroid: Subcentimeter bilateral thyroid nodules of uncertain etiology. Bones/joints: Evaluation of the right ribs reveals acute posterior medial rib fractures involving the right 9th, 10th, 11th, and 12th ribs. Evaluation of the left ribs is unremarkable. The sternum is unremarkable. Moderate to severe degenerative disc disease of the thoracic spine. Thoracic vertebral bodies are maintained in height. Mild kyphosis. Soft tissues: Unremarkable. Vasculature: Atherosclerotic disease of the thoracic aorta. No thoracic aortic aneurysm. Lymph nodes: Unremarkable. No enlarged lymph nodes. Tubes, lines and devices: Pacemaker overlies the left upper chest. Other findings: Spinous processes are unremarkable. IMPRESSION: 1. Acute posterior medial lower right rib fractures. 2. Moderate to large right pleural effusion, possibly containing an element of the hemothorax. 3. Cardiomegaly. 4. ASCVD. 5. No pneumothoraces. <MYCVCSECTION> Communications: 06/22/19 18:21 Call Doctor Regarding Trauma, called Fidencio JOHNSON on 06/21 18:21 (-07:00)
[2019-06-22] MEDS ORDERED: Zolpidem 5mg tab ORAL PRN (19:00)
[2019-06-22] MEDS ORDERED: Miralax 17gm pkt ORAL PRN (19:00)
--- NOTE | 2019-06-22 19:07 | NUR ---
HAND-OFF: Report given to Yang Vasquez RN.
--- NOTE | 2019-06-22 19:27 | NUR ---
ED Nurse Note: [email or web address]
[2019-06-22 19:28] VITALS: BP 127/67
--- NOTE | 2019-06-22 19:28 | NUR ---
ED Nurse Note: received report from Debbi ROTH. Will resume care of patient
--- NOTE | 2019-06-22 20:00 | NUR ---
ED Nurse Note: GAVE REPORT TO CITLALY ROTH.
--- NOTE | 2019-06-22 20:05 | NUR ---
TRANSFER TO FLOOR: Patient transferred to [facility] via [facility] in stable condition as ordered, per dr. Adrian. Report given to Skyla ROTH. Belongings sent with patient
--- NOTE | 2019-06-22 21:36 | NUR ---
NURSE NOTES: Received patient report from Yang Vasquez, [employer] DES[employer] ARCHITECT. Patient transported without incident. Patient AOx 4. She shows no signs of distress at the moment. Complains of pain on the right side of her back but says she has been having this pain for 2 weeks since she fell at home. She came from ER with 1 unit of blood being transfused. She is complaining of itchiness but says this is something that has happens every day. IV checked. Patent and flushed. There are no signs of erythema, bleeding, or infiltration. She has been connected to the playground monitor. Bed is in the lowest position, call light within reach, and side rails up x3, and i instructed her to call if she needs to used the restroom. Will continue plan of care.
--- NOTE | 2019-06-22 21:42 | NUR ---
NURSE NOTES: Called Dr. Adrian to ask for something to give patient for itchiness and for nasal congestion. Awaiting call back.
[2019-06-22] MEDS: Amiodarone 200mg tab ORAL SCH (22:08)
[2019-06-22] MEDS: Metoprolol Tartrate 50mg tab ORAL SCH (22:08)
[2019-06-22] MEDS ORDERED: Oxymetazoline 0.05% Na Spray 30ml NASAL ONE (23:45)
[2019-06-22] MEDS ORDERED: HydrOXYzine tab 25mg tab ORAL PRN (23:45)
[2019-06-23] VITALS: BP 139/72
[2019-06-23 04:00] VITALS: BP 138/75
--- NOTE | 2019-06-23 05:54 | NUR ---
NURSE NOTES: Patient completed second unit of blood. She shows no signs of allergic reaction. Will continue to monitor.
--- NOTE | 2019-06-23 06:39 | NUR ---
NURSE NOTES: Patient came from home with a bruise on her right rib thoracic area. She fell at home 2 weeks ago.
--- NOTE | 2019-06-23 07:23 | NUR ---
HAND-OFF: Report given to IRA Scott. Patient in bed eating breakfast. There are no signs of distress at the time. Endorsed plan of care.
--- NOTE | 2019-06-23 07:30 | NUR ---
NURSE NOTES: Received report from IRA Crum. Pt awake, A/O x4, able to verbalize needs. Pt denies any pain, no s/sx of acute distress, breathing even and unlabored in RA. Per RN, pt received a total of 2 units PRBC, RBC today is 8.4 after transfusion. Pt on fall precaution, room close to nurse's station. IV site on R EJ patent and asymptomatic. Bed on lowest position, call light within reach. Will continue plan of care.
[2019-06-23 07:39] LABS: BASOPHILS % (AUTO) 3.4 % (0.0-2.0); EOSINOPHILS % (AUTO) 0.4 % (0.0-3.0); HEMATOCRIT 25.4 % (37.0-47.0); LYMPHOCYTES % (AUTO) 12.8 % (20.0-45.0); MEAN CORPUSCULAR VOLUME 92 FL (80-99); MONOCYTES % (AUTO) 3.3 % (1.0-10.0); NEUTROPHILS % (AUTO) 80.2 % (45.0-75.0); PLATELET COUNT 210 K/UL (150-450); RED BLOOD COUNT 2.75 M/UL (4.20-5.40); RED CELL DISTRIBUTION WIDTH 20.8 % (11.6-14.8); WHITE BLOOD COUNT 6.3 K/UL (4.8-10.8)
[2019-06-23 07:47] LABS: HEMOGLOBIN 8.4 G/DL (12.0-16.0)
[2019-06-23 08:00] VITALS: BP 138/66
[2019-06-23 08:03] LABS: ALANINE AMINOTRANSFERASE 13 U/L (12-78); ALBUMIN 3.1 G/DL (3.4-5.0); ALBUMIN/GLOBULIN RATIO 0.9 (1.0-2.7); ALKALINE PHOSPHATASE 57 U/L (46-116); ANION GAP 10 mmol/L (5-15); ASPARTATE AMINO TRANSFERASE 20 U/L (15-37); BILIRUBIN,TOTAL 0.7 MG/DL (0.2-1.0); BLOOD UREA NITROGEN 19 mg/dL (7-18); CALCIUM 8.7 MG/DL (8.5-10.1); CARBON DIOXIDE 22 MMOL/L (21-32); CHLORIDE 107 MMOL/L (98-107); CHOLESTEROL 78 MG/DL (< 200); CREATININE 0.8 MG/DL (0.55-1.30); HDL CHOLESTEROL 24 MG/DL (40-60); POTASSIUM 4.3 MMOL/L (3.5-5.1); SODIUM 139 MMOL/L (136-145); TRIGLYCERIDES 98 MG/DL (30-150)
[2019-06-23] MEDS: Metoprolol Tartrate 50mg tab ORAL SCH ×2 (08:51→21:04)
[2019-06-23 12:00] VITALS: BP 123/62
--- NOTE | 2019-06-23 13:15 | Consultation ---
History of Present Illness General Date patient seen: June 23, 2019 Chief Complaint: Multiple Trauma/Fall Present Illness HPI 79 year-old female with PHMx of HTN, CVA/TIA, atrial fib, pacemaker presents ED for evaluation of RU flank pain. Apparently she fell again and hit that part of her belly Patient states pain is getting worse. Pain is sharp, 10 out of 10, nonradiating. She had a CT of chest and abdomen in the ER which showed right sided effusion and rib fracture around the same area. Allergies: Coded Allergies: No Known Allergies (Unverified , 04/24/18) Medication History Scheduled Amiodarone Hcl (Amiodarone Hcl), 200 MG ORAL ilia, (Reported) Dabigatran Etexilate Mesylate* (Pradaxa*), 150 MG PO Q12H, (Reported) Escitalopram Oxalate* (Lexapro*), 10 MG ORAL DAILY, (Reported) Lidocaine HCL 2% Jelly* (Lidocaine Jelly 2%*), 5 ML TOPIC DAILY Metoprolol Tartrate* (Metoprolol Tartrate*), 50 MG ORAL EVERY 12 HOURS, ( Reported) Mirtazapine* (Mirtazapine*), 7.5 MG ORAL BEDTIME, (Reported) Omeprazole (Omeprazole), 20 MG ORAL DAILY, (Reported) Scheduled PRN Acetaminophen With Codeine (T#3) (Tylenol #3 Tab*), 1 TAB ORAL Q4H PRN Clonidine Hcl* (Catapres*), 0.1 MG ORAL EVERY 8 HOURS PRN for SBP >170, ( Reported) Diphenhydramine Hcl* (Benadryl*), Unknown Dose ORAL Q6H PRN for Itching, ( Reported) Patient History Healthcare decision maker Resuscitation status Advanced Directive on File Past Medical/Surgical History Past Medical/Surgical History: (1) Polycythemia vera (2) Pacemaker (3) Atrial fibrillation (4) Peripheral neuropathy (5) KELVIN (obstructive sleep apnea) Review of Systems All Other Systems: negative except mentioned in HPI Physical Exam General Appearance: no apparent distress Lines, tubes and drains: peripheral HEENT: normocephalic, atraumatic, anicteric Neck: non-tender, normal alignment Respiratory/Chest: lungs clear, normal breath sounds Cardiovascular/Chest: normal peripheral pulses, normal rate Abdomen: normal bowel sounds, non tender Genitourinary/Rectal: normal genital exam, normal rectal exam Extremities: normal range of motion, non-tender 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 grossly normal Last 24 Hour Vital Signs Date Time Temp Pulse Resp B/P (MAP) Pulse Ox O2 Delivery O2 Flow Rate FiO2 06/23/19 12:00 98.0 61 19 123/62 (82) 98 06/23/19 11:52 86 06/23/19 09:00 Room Air 06/23/19 08:51 63 138/66 06/23/19 08:00 98.1 63 18 138/66 (90) 96 06/23/19 07:55 62 06/23/19 04:00 97.4 64 18 138/75 (96) 98 06/23/19 00:00 97.7 60 19 139/72 (94) 96 06/23/19 00:00 61 06/22/19 22:08 64 135/70 06/22/19 21:50 Room Air 06/22/19 21:28 62 06/22/19 20:05 97.9 63 18 127/67 99 Room Air 62 06/22/19 19:28 62 18 127/67 99 Room Air 06/22/19 18:15 97.9 75 18 06/22/19 18:00 97.8 63 20 126/47 99 Room Air 06/22/19 18:00 97.8 63 20 06/22/19 17:05 97.9 72 16 105/75 100 Room Air 06/22/19 15:04 76 20 Room Air 06/22/19 15:04 97.5 78 18 95/62 99 Room Air 06/22/19 14:54 97.5 76 20 95/62 (73) 97 Room Air Intake and Output 06/22/19 06/23/19 19:00 07:00 Intake Total 1000 ml 200 ml Balance 1000 ml 200 ml Intake IV Total 1000 ml Other 200 ml # Voids 1 3 Laboratory Tests Test 06/22/19 15:31 06/22/19 15:56 06/23/19 05:50 White Blood Count 7.1 K/UL (4.8-10.8) 6.3 K/UL (4.8-10.8) Red Blood Count 1.87 M/UL (4.20-5.40) L 2.75 M/UL (4.20-5.40) L Hemoglobin 5.7 G/DL (12.0-16.0) *L 8.4 G/DL (12.0-16.0) #L Hematocrit 18.6 % (37.0-47.0) L 25.4 % (37.0-47.0) #L Mean Corpuscular Volume 100 FL (80-99) H 92 FL (80-99) Mean Corpuscular Hemoglobin 30.4 PG (27.0-31.0) 30.7 PG (27.0-31.0) Mean Corpuscular Hemoglobin Concent 30.5 G/DL (32.0-36.0) L 33.3 G/DL (32.0-36.0) Red Cell Distribution Width 26.1 % (11.6-14.8) H 20.8 % (11.6-14.8) H Platelet Count 250 K/UL (150-450) 210 K/UL (150-450) Mean Platelet Volume 10.2 FL (6.5-10.1) H 8.1 FL (6.5-10.1) Neutrophils (%) (Auto) % (45.0-75.0) 80.2 % (45.0-75.0) H Lymphocytes (%) (Auto) % (20.0-45.0) 12.8 % (20.0-45.0) L Monocytes (%) (Auto) % (1.0-10.0) 3.3 % (1.0-10.0) Eosinophils (%) (Auto) % (0.0-3.0) 0.4 % (0.0-3.0) Basophils (%) (Auto) % (0.0-2.0) 3.4 % (0.0-2.0) H Differential Total Cells Counted 100 Neutrophils % (Manual) 88 % (45-75) H Lymphocytes % (Manual) 8 % (20-45) L Monocytes % (Manual) 1 % (1-10) Eosinophils % (Manual) 0 % (0-3) Basophils % (Manual) 1 % (0-2) Band Neutrophils 2 % (0-8) Platelet Estimate Adequate Platelet Morphology Normal Anisocytosis 3+ Tear Drop Cells Occasional Ovalocytes 2+ Prothrombin Time 13.0 SEC (9.30-11.50) H Prothromb Time International Ratio 1.2 (0.9-1.1) H Activated Partial Thromboplast Time 44 SEC (23-33) H Sodium Level 137 MMOL/L (136-145) 139 MMOL/L (136-145) Potassium Level 4.3 MMOL/L (3.5-5.1) 4.3 MMOL/L (3.5-5.1) Chloride Level 105 MMOL/L (98-107) 107 MMOL/L (98-107) Carbon Dioxide Level 23 MMOL/L (21-32) 22 MMOL/L (21-32) Anion Gap 9 mmol/L (5-15) 10 mmol/L (5-15) Blood Urea Nitrogen 24 mg/dL (7-18) H 19 mg/dL (7-18) H Creatinine 1.0 MG/DL (0.55-1.30) 0.8 MG/DL (0.55-1.30) Estimat Glomerular Filtration Rate 53.1 mL/min (>60) > 60 mL/min (>60) Glucose Level 133 MG/DL (74-106) H 92 MG/DL (74-106) Calcium Level 8.2 MG/DL (8.5-10.1) L 8.7 MG/DL (8.5-10.1) Total Bilirubin 0.6 MG/DL (0.2-1.0) 0.7 MG/DL (0.2-1.0) Aspartate Amino Transf (AST/SGOT) 14 U/L (15-37) L 20 U/L (15-37) Alanine Aminotransferase (ALT/SGPT) 14 U/L (12-78) 13 U/L (12-78) Alkaline Phosphatase 54 U/L (46-116) 57 U/L (46-116) Total Creatine Kinase 17 U/L (26-308) L Troponin I 0.004 ng/mL (0.000-0.056) Total Protein 6.5 G/DL (6.4-8.2) 6.7 G/DL (6.4-8.2) Albumin 3.1 G/DL (3.4-5.0) L 3.1 G/DL (3.4-5.0) L Globulin 3.4 g/dL 3.6 g/dL Albumin/Globulin Ratio 0.9 (1.0-2.7) L 0.9 (1.0-2.7) L Urine Color Yellow Urine Appearance Clear Urine pH 5 (4.5-8.0) Urine Specific Heth 1.015 (1.005-1.035) Urine Protein 2+ (NEGATIVE) H Urine Glucose (UA) Negative (NEGATIVE) Urine Ketones Negative (NEGATIVE) Urine Blood Negative (NEGATIVE) Urine Nitrite Negative (NEGATIVE) Urine Bilirubin Negative (NEGATIVE) Urine Urobilinogen 1 MG/DL (0.0-1.0) H Urine Leukocyte Esterase 3+ (NEGATIVE) H Urine RBC 0 /HPF (0 - 2) Urine WBC 15-20 /HPF (0 - 2) H Urine Squamous Epithelial Cells Occasional /LPF Urine Bacteria Few /HPF (NONE) Triglycerides Level 98 MG/DL (30-150) Cholesterol Level 78 MG/DL (< 200) LDL Cholesterol 45 mg/dL (<100) HDL Cholesterol 24 MG/DL (40-60) L Cholesterol/HDL Ratio 3.3 (3.3-4.4) Thyroid Stimulating Hormone (TSH) 3.226 uiU/mL (0.358-3.740) Microbiology Date/Time Source Procedure Growth Status 06/22/19 15:56 Urine,Clean Catch Urine Culture - Preliminary NO GROWTH Resulted Height (Feet): 5 Height (Inches): 0.00 Weight (Pounds): 140 Medications Current Medications Medications (Trade) Dose Ordered Sig/Escobar Route PRN Reason Start Time Stop Time Status Last Admin Dose Admin Acetaminophen (Tylenol) 650 mg Q4H PRN ORAL fever 06/22/19 19:00 07/22/19 18:59 Amiodarone HCl (Cordarone) 200 mg BIOTEC ORAL 06/22/19 21:00 09/20/19 20:59 06/22/19 22:08 Dextrose (Dextrose 50%) 25 ml Q30M PRN IV Hypoglycemia 06/22/19 19:00 09/20/19 18:59 Dextrose (Dextrose 50%) 50 ml Q30M PRN IV Hypoglycemia 06/22/19 19:00 09/20/19 18:59 Escitalopram Oxalate (Lexapro) 10 mg DAILY ORAL 06/23/19 09:00 07/23/19 08:59 5/12/20 08:51 Hydroxyzine HCl (Atarax) 25 mg Q8HR PRN ORAL Itching 06/22/19 23:45 07/22/19 23:44 06/23/19 00:05 Metoprolol Tartrate (Lopressor) 50 mg EVERY 12 HOURS ORAL 06/22/19 21:00 09/20/19 20:59 06/23/19 08:51 Mirtazapine (Remeron) 7.5 mg BEDTIME ORAL 06/22/19 21:00 09/20/19 20:59 06/22/19 22:08 Ondansetron HCl (Zofran) 4 mg Q6H PRN IVP Nausea & Vomiting 06/22/19 19:00 07/22/19 18:59 Polyethylene Glycol (Miralax) 17 gm HSPRN PRN ORAL Constipation 06/22/19 19:00 07/22/19 18:59 Zolpidem Tartrate (Ambien) 5 mg HSPRN PRN ORAL Insomnia 06/22/19 19:00 06/29/19 18:59 Assessment/Plan Problem List: (1) Pleural effusion ICD Codes: J90 - Pleural effusion, not elsewhere classified SNOMED: 83439112 (2) Chronic anticoagulation ICD Codes: Z79.01 - care home (current) use of anticoagulants SNOMED: 917115090 (3) Ribs, multiple fractures ICD Codes: S22.49XA - Multiple fractures of ribs, unspecified side, initial encounter for closed fracture SNOMED: 8700483 (4) Atrial fibrillation ICD Codes: I48.91 - Unspecified atrial fibrillation SNOMED: 78172833 (5) KELVIN (obstructive sleep apnea) ICD Codes: G47.33 - Obstructive sleep apnea (adult) (pediatric) SNOMED: 55294736 (6) COPD (chronic obstructive pulmonary disease) ICD Codes: J44.9 - Chronic obstructive pulmonary disease, unspecified SNOMED: 69428165 (7) Pacemaker ICD Codes: Z95.0 - Presence of cardiac pacemaker SNOMED: 726652105 Assessment/Plan: repeat CXR US of chest to assess the amount of the fluid hold anticoagulation for now cardiology evaluation monitor heart rate respiratory treatment symptomatic treatment home meds reviewed. Kelly Mejia MD June 23, 2019 13:15
--- NOTE | 2019-06-23 14:30 | Cardiology Progress Note ---
Assessment/Plan Assessment/Plan full note dictated [id number] anemia hs of prv paf ppi generator changed 07/2018 uti fall Objective Last 24 Hour Vital Signs Date Time Temp Pulse Resp B/P (MAP) Pulse Ox O2 Delivery O2 Flow Rate FiO2 06/23/19 12:00 98.0 61 19 123/62 (82) 98 06/23/19 11:52 86 06/23/19 09:00 Room Air 06/23/19 08:51 63 138/66 06/23/19 08:00 98.1 63 18 138/66 (90) 96 06/23/19 07:55 62 06/23/19 04:00 97.4 64 18 138/75 (96) 98 06/23/19 00:00 97.7 60 19 139/72 (94) 96 06/23/19 00:00 61 06/22/19 22:08 64 135/70 06/22/19 21:50 Room Air 06/22/19 21:28 62 06/22/19 20:05 97.9 63 18 127/67 99 Room Air 62 06/22/19 19:28 62 18 127/67 99 Room Air 06/22/19 18:15 97.9 75 18 06/22/19 18:00 97.8 63 20 126/47 99 Room Air 06/22/19 18:00 97.8 63 20 06/22/19 17:05 97.9 72 16 105/75 100 Room Air 06/22/19 15:04 76 20 Room Air 06/22/19 15:04 97.5 78 18 95/62 99 Room Air 06/22/19 14:54 97.5 76 20 95/62 (73) 97 Room Air Intake and Output 06/22/19 06/23/19 19:00 07:00 Intake Total 1000 ml 200 ml Balance 1000 ml 200 ml Intake IV Total 1000 ml Other 200 ml # Voids 1 3 Laboratory Tests Test 06/22/19 15:31 06/22/19 15:56 06/23/19 05:50 White Blood Count 7.1 K/UL (4.8-10.8) 6.3 K/UL (4.8-10.8) Red Blood Count 1.87 M/UL (4.20-5.40) L 2.75 M/UL (4.20-5.40) L Hemoglobin 5.7 G/DL (12.0-16.0) *L 8.4 G/DL (12.0-16.0) #L Hematocrit 18.6 % (37.0-47.0) L 25.4 % (37.0-47.0) #L Mean Corpuscular Volume 100 FL (80-99) H 92 FL (80-99) Mean Corpuscular Hemoglobin 30.4 PG (27.0-31.0) 30.7 PG (27.0-31.0) Mean Corpuscular Hemoglobin Concent 30.5 G/DL (32.0-36.0) L 33.3 G/DL (32.0-36.0) Red Cell Distribution Width 26.1 % (11.6-14.8) H 20.8 % (11.6-14.8) H Platelet Count 250 K/UL (150-450) 210 K/UL (150-450) Mean Platelet Volume 10.2 FL (6.5-10.1) H 8.1 FL (6.5-10.1) Neutrophils (%) (Auto) % (45.0-75.0) 80.2 % (45.0-75.0) H Lymphocytes (%) (Auto) % (20.0-45.0) 12.8 % (20.0-45.0) L Monocytes (%) (Auto) % (1.0-10.0) 3.3 % (1.0-10.0) Eosinophils (%) (Auto) % (0.0-3.0) 0.4 % (0.0-3.0) Basophils (%) (Auto) % (0.0-2.0) 3.4 % (0.0-2.0) H Differential Total Cells Counted 100 Neutrophils % (Manual) 88 % (45-75) H Lymphocytes % (Manual) 8 % (20-45) L Monocytes % (Manual) 1 % (1-10) Eosinophils % (Manual) 0 % (0-3) Basophils % (Manual) 1 % (0-2) Band Neutrophils 2 % (0-8) Platelet Estimate Adequate Platelet Morphology Normal Anisocytosis 3+ Tear Drop Cells Occasional Ovalocytes 2+ Prothrombin Time 13.0 SEC (9.30-11.50) H Prothromb Time International Ratio 1.2 (0.9-1.1) H Activated Partial Thromboplast Time 44 SEC (23-33) H Sodium Level 137 MMOL/L (136-145) 139 MMOL/L (136-145) Potassium Level 4.3 MMOL/L (3.5-5.1) 4.3 MMOL/L (3.5-5.1) Chloride Level 105 MMOL/L (98-107) 107 MMOL/L (98-107) Carbon Dioxide Level 23 MMOL/L (21-32) 22 MMOL/L (21-32) Anion Gap 9 mmol/L (5-15) 10 mmol/L (5-15) Blood Urea Nitrogen 24 mg/dL (7-18) H 19 mg/dL (7-18) H Creatinine 1.0 MG/DL (0.55-1.30) 0.8 MG/DL (0.55-1.30) Estimat Glomerular Filtration Rate 53.1 mL/min (>60) > 60 mL/min (>60) Glucose Level 133 MG/DL (74-106) H 92 MG/DL (74-106) Calcium Level 8.2 MG/DL (8.5-10.1) L 8.7 MG/DL (8.5-10.1) Total Bilirubin 0.6 MG/DL (0.2-1.0) 0.7 MG/DL (0.2-1.0) Aspartate Amino Transf (AST/SGOT) 14 U/L (15-37) L 20 U/L (15-37) Alanine Aminotransferase (ALT/SGPT) 14 U/L (12-78) 13 U/L (12-78) Alkaline Phosphatase 54 U/L (46-116) 57 U/L (46-116) Total Creatine Kinase 17 U/L (26-308) L Troponin I 0.004 ng/mL (0.000-0.056) Total Protein 6.5 G/DL (6.4-8.2) 6.7 G/DL (6.4-8.2) Albumin 3.1 G/DL (3.4-5.0) L 3.1 G/DL (3.4-5.0) L Globulin 3.4 g/dL 3.6 g/dL Albumin/Globulin Ratio 0.9 (1.0-2.7) L 0.9 (1.0-2.7) L Urine Color Yellow Urine Appearance Clear Urine pH 5 (4.5-8.0) Urine Specific [place] 1.015 (1.005-1.035) Urine Protein 2+ (NEGATIVE) H Urine Glucose (UA) Negative (NEGATIVE) Urine Ketones Negative (NEGATIVE) Urine Blood Negative (NEGATIVE) Urine Nitrite Negative (NEGATIVE) Urine Bilirubin Negative (NEGATIVE) Urine Urobilinogen 1 MG/DL (0.0-1.0) H Urine Leukocyte Esterase 3+ (NEGATIVE) H Urine RBC 0 /HPF (0 - 2) Urine WBC 15-20 /HPF (0 - 2) H Urine Squamous Epithelial Cells Occasional /LPF Urine Bacteria Few /HPF (NONE) Triglycerides Level 98 MG/DL (30-150) Cholesterol Level 78 MG/DL (< 200) LDL Cholesterol 45 mg/dL (<100) HDL Cholesterol 24 MG/DL (40-60) L Cholesterol/HDL Ratio 3.3 (3.3-4.4) Thyroid Stimulating Hormone (TSH) 3.226 uiU/mL (0.358-3.740) Microbiology Date/Time Source Procedure Growth Status 06/22/19 15:56 Urine,Clean Catch Urine Culture - Preliminary NO GROWTH Resulted Mainor Araujo MD June 23, 2019 14:30
--- NOTE | 2019-06-23 15:29 | Diagnostic Imaging Report ---
Indication: History of pleural fluid, demonstrated on recent chest CT scan Technique: Grayscale images of the bilateral hemithoraces Comparison: CT scan dated 06/22/2019 Findings: Moderate to large right pleural effusion is demonstrated. No pleural effusion is demonstrated on the left. Impression: Positive for right pleural effusion
[2019-06-23 16:00] VITALS: BP 128/71
[2019-06-23] MEDS ORDERED: HYDROcodone/Acetamin 5/325 tab ORAL PRN (16:15)
--- NOTE | 2019-06-23 16:16 | History & Physical ---
History and Physical History & Physicial Dictated for Int Med-Dr Adrian no. [id number]. Roshan Edwards MD June 23, 2019 16:16
--- NOTE | 2019-06-23 16:34 | NUR ---
CASE MANAGEMENT:REVIEW 79 YR OLD FEMALE FROM HOME CC: FELL LAST WEEK. RT SIDED PAIN PMH: PACEMAKER SI: ANEMIA. PLEURAL EFFUSION. MULTIPLE RIB FRACTURES 97.6 76 20 95/62 97% ON RA H/H-5.7/18.6 IS; 1L NS BOLUS X2 CT CHEST/ABDOMEN URINE CX PRBC'S : TO TELEMETRY IS: TRANSFUSE 2 UNITS PRBC'S
[2019-06-23] MEDS: HYDROcodone/Acetamin 10/325 tab ORAL PRN ×2 (17:02→21:05)
--- NOTE | 2019-06-23 18:24 | NUR ---
NURSE NOTES: Received a call from Ramya of pharmacy, she was asking for pt's list of home meds. Pt is not aware of all the meds that she takes at home. Called Kishan (son), he said that he will call back when he gets the list. Awaiting for the son's call. Ramya made aware. Per Ramya, fax the list to [phone] when available.
--- NOTE | 2019-06-23 19:48 | NUR ---
HAND-OFF: Report given to IRA Cooley. Pt in stable condition, endorsed plan of care.
--- NOTE | 2019-06-23 19:50 | NUR ---
NURSE NOTES: Got report from Sonia ROTH. Pt in stable condition. No s/s of distress or discomfort noted. Pt resting in bed comfortably. Bed in low and locked position, call light within reach, bedside table within reach. Continue to monitor.
[2019-06-23 20:00] VITALS: BP 148/71
--- NOTE | 2019-06-23 20:00 | History and Physical Report ---
DATE OF ADMISSION: 06/22/2019 CHIEF COMPLAINT: The patient is an 79-year-old female, who presents with a chief complaint of right-sided chest pain. HISTORY OF PRESENT ILLNESS: The patient apparently fell at home approximately a week ago. The patient began to experience right-sided chest pain. The patient presented to [place] emergency room. The patient was admitted with chest pain to rule out acute coronary syndrome. The patient presented to [place] emergency room. The patient was found to have hemoglobin of 5.7. The patient was admitted with chest pain to rule out acute coronary syndrome and severe anemia. REVIEW OF SYSTEMS: CONSTITUTIONAL: The patient denies weight loss or weight gain. The patient denies fevers or chills. HEENT: The patient denies ear or throat pain. The patient denies headache. CARDIOVASCULAR: The patient denies palpitations. The patient complains of chest pain as above. ABDOMEN: The patient denies nausea, vomiting, diarrhea, or constipation. GENITOURINARY: The patient denies dysuria or increased frequency of urination. NEUROMUSCULAR: The patient complains of fall injury as above. The patient denies seizures or generalized weakness. PAST MEDICAL HISTORY: Significant for: 1. Chronic atrial fibrillation. 2. Polycythemia vera. 3. . 4. Obstructive sleep apnea. 5. Coronary artery disease. 6. Hypercholesterolemia. 7. Congestive heart failure. PAST SURGICAL HISTORY: Significant for: 1. Pacemaker implantation. 2. Total abdominal hysterectomy. CURRENT MEDICATIONS: 1. Amiodarone 200 mg one tablet p.o. daily. 2. Clonidine 0.1 mg p.o. q.8 hours p.r.n. 3. Pradaxa 150 mg p.o. twice daily. 4. Lexapro 10 mg p.o. daily. 5. Metoprolol 50 mg p.o. twice daily. 6. Mirtazapine 7.5 mg p.o. at bedtime. 7. Omeprazole 20 mg p.o. daily. ALLERGIES: No known drug allergies. SOCIAL HISTORY: The patient is single and lives with her niece and her sister. The patient denies tobacco or alcohol use. PHYSICAL EXAMINATION: VITAL SIGNS: Temperature 97.5, respirations 20, pulse 76, blood pressure 95/62. GENERAL: The patient is well-developed and well-nourished female, in no apparent distress. HEENT: Eyes, pupils are equal and responsive to light and accommodation. Extraocular movements are intact. NECK: Supple without lymphadenopathy. CHEST: Lungs are clear to auscultation bilaterally without wheezes or rales. CARDIOVASCULAR: Regular rate. S1 and S2 normal without murmurs, rubs, or gallops. ABDOMEN: Soft, nontender, and nondistended. Positive bowel sounds. No evidence of hepatosplenomegaly. Currently, no rebound or guarding noted. EXTREMITIES: Negative for clubbing, cyanosis, or edema. RECTAL/GENITAL: Not performed. NEUROLOGIC: Cranial nerves II through XII are grossly intact without focal deficits. LABORATORY STUDIES: WBC 7.1, hemoglobin 5.7, hematocrit 18.6 platelets 250,000. Sodium 137, potassium 4.3, chloride 105, CO2 23, BUN 24, creatinine 1.0, glucose 133. Troponin 0.004. CT scan of the brain failed to demonstrate acute intracranial bleed or infarct. CT scan of the chest and abdomen was reported as right pleural effusion. Chest ultrasound revealed right pleural effusion. ASSESSMENT: This is an 79-year-old female. 1. Chest pain. 2. Fall injury. 3. Severe anemia. 4. Atrial fibrillation. 5. Polycythemia vera. 6. . 7. Obstructive sleep apnea. 8. Coronary artery disease. 9. Hypercholesterolemia. 10. Congestive heart failure. TREATMENT: 1. Chest pain. This may be secondary to fall injury. Initial troponin level was negative. Repeat troponin levels are pending. A Cardiology consultation has been obtained with Dr. Mainor Araujo. 2. Severe anemia. The patient has been typed and crossed for 2 units of packed RBCs. Transfuse when available. Severe anemia may be secondary to gastrointestinal hemorrhage, however, the patient denies melena or bright red blood per rectum. 3. Atrial fibrillation. As above, a Cardiology consultation has been obtained with Dr. Mainor Araujo. 4. Polycythemia vera. The patient is currently anemic. 5. Hypertension. Continue metoprolol as above. 6. Obstructive sleep apnea. 7. Coronary artery disease, status post myocardial infarction. As above, a Cardiology consultation has been obtained with Dr. Mainor Araujo. 8. Hypercholesteremia. 9. Congestive heart failure. 10. Pacemaker in situ. Pacemaker check is pending. Roshan Edwards M.D. DR: Bel JOB#: [id number] CC:
[2019-06-23] MEDS: Amiodarone 200mg tab ORAL SCH (21:04)
[2019-06-24] VITALS: BP 143/74
[2019-06-24 04:00] VITALS: BP 139/81
--- NOTE | 2019-06-24 07:30 | NUR ---
HAND-OFF: Report given to Sonia ROTH.
[2019-06-24 08:00] VITALS: BP 120/77
[2019-06-24] MEDS: Metoprolol Tartrate 50mg tab ORAL SCH ×2 (09:03→21:00)
[2019-06-24] MEDS: HYDROcodone/Acetamin 10/325 tab ORAL PRN ×3 (09:03→21:38)
[2019-06-24 09:06] LABS: BASOPHILS % (AUTO) 2.3 % (0.0-2.0); EOSINOPHILS % (AUTO) 0.4 % (0.0-3.0); HEMATOCRIT 26.3 % (37.0-47.0); HEMOGLOBIN 8.9 G/DL (12.0-16.0); LYMPHOCYTES % (AUTO) 13.9 % (20.0-45.0); MEAN CORPUSCULAR VOLUME 91 FL (80-99); MONOCYTES % (AUTO) 2.9 % (1.0-10.0); NEUTROPHILS % (AUTO) 80.5 % (45.0-75.0); PLATELET COUNT 225 K/UL (150-450); RED CELL DISTRIBUTION WIDTH 21.1 % (11.6-14.8); WHITE BLOOD COUNT 8.3 K/UL (4.8-10.8)
--- NOTE | 2019-06-24 09:12 | NUR ---
RADIOLOGY: PCXR COMPLETED 0930HRS. NF
[2019-06-24 09:41] LABS: ALANINE AMINOTRANSFERASE 9 U/L (12-78); ALBUMIN 2.9 G/DL (3.4-5.0); ALBUMIN/GLOBULIN RATIO 0.9 (1.0-2.7); ALKALINE PHOSPHATASE 56 U/L (46-116); ANION GAP 9 mmol/L (5-15); ASPARTATE AMINO TRANSFERASE 15 U/L (15-37); BILIRUBIN,TOTAL 0.6 MG/DL (0.2-1.0); BLOOD UREA NITROGEN 20 mg/dL (7-18); CALCIUM 8.6 MG/DL (8.5-10.1); CARBON DIOXIDE 24 MMOL/L (21-32); CHLORIDE 107 MMOL/L (98-107); CREATININE 0.8 MG/DL (0.55-1.30); POTASSIUM 4.5 MMOL/L (3.5-5.1); SODIUM 140 MMOL/L (136-145)
--- NOTE | 2019-06-24 10:59 | Consultation ---
DATE OF CONSULTATION: 06/22/2019 CARDIOLOGY CONSULTATION CONSULTING PHYSICIAN: Mainor Araujo MD. REFERRING PHYSICIAN: Kelly Mejia M.D. REASON FOR REFERRAL: Right-sided chest pain and fall. HISTORY OF PRESENT ILLNESS: This is an 79-year-old female with multiple medical problems delineated below. The patient has been seen by me in the office, although, it has been awhile since I have seen her. She does not remember the last time she saw her diagnostic cardiac sonographer, she states. Apparently, she had a fall a week ago. Details of the fall is really not known. The patient is not able to provide the details of the fall either but after that fall she has had some pain in the right side of the chest and abdomen at that time and finally presented to the emergency room because of generalized weakness. She denies any chest pain. Denies any shortness of breath. Denies any PND or orthopnea. Denies any palpitations. She denies any dizziness on standing as far as I can tell. PAST MEDICAL HISTORY: Positive for atrial fibrillation, cardiac pacemaker, sinus node dysfunction, polycythemia rubra vera, depression, paroxysmal episodes of atrial fibrillation, non-ST elevation myocardial infarction with normal cardiac catheterization back in 2019. She has history of hypertension, obstructive sleep apnea, diastolic heart failure. The patient has history of pacemaker that has reached end of life and battery was changed in July 2018. The patient also has history of anemia of chronic disease, peripheral neuropathy, encephalopathy, systemic hypertension, and weight loss. Her pacemaker is a [employer] is [id number], serial number [id number] that was implanted by Dr. Freitas. ALLERGIES: She has not had any allergies to medications. SOCIAL HISTORY: She does not smoke or drink alcoholic beverages. She lives at home with her nephew. REVIEW OF SYSTEMS: GASTROINTESTINAL: She denies any nausea, vomiting, diarrhea, constipation. GENITOURINARY: She denies PULMONARY: She denies. CONSTITUTIONAL: She denies. MUSCULOSKELETAL: As mentioned with pain in the right side of the abdomen. PHYSICAL EXAMINATION: GENERAL: Shows to be elderly female, in no respiratory distress, although, when she try to sit up she had significant amount of pain. NECK: Supple. No jugular venous distention. LUNGS: Clear to auscultation and percussion. CARDIAC: Somewhat irregular, not tachycardic, not bradycardic. No heaves or thrills. ABDOMEN: Soft, does not appear to be tender. Positive bowel sounds. EXTREMITIES: There is no edema. She has pneumatic compression stockings in place. LABORATORY VALUES: Her hemoglobin at time of admission yesterday was 5.7 and today is 8.4 with a white count of 6.3, and platelet count of 210. Chemistries show a sodium 139, potassium 4.3, bicarbonate 22, BUN 19, creatinine 0.8, glucose of 92, albumin 3.1. Total cholesterol is 78 with LDL of 45 and HDL of 24. TSH 3.226. Troponin 0.04 04:24 at the time of admission. Her coags INR 1.2 and PTT of 44. Her urinalysis yesterday 2+ leukocyte esterase, 15 to 20 wbc's. X-rays that were performed yesterday including CT scan of chest, abdomen, and pelvis that showed basically no evidence of acute injury to the abdomen or pelvic viscera, limited study secondary to motion artifact and cholelithiasis was documented, although, I do not see any. X-ray of the chest shows the lung bases reported to be unremarkable. She have a CT scan of her head that shows age-related atrophy and small-vessel changes. No acute intracranial pathology. Chest x-ray shows the lungs and pleural spaces to be clear, the heart size is normal, the aorta is tortuous, no acute processes otherwise. Her electrocardiogram shows sinus with variable 05:44 V-pacing as well V-sensing, clearly evidence of atrial activity. There is also occasional atrial pacing as well. Telemetry reviewed shows atrial pacing versus sensing and ventricular sensing and occasional pacing as well. ASSESSMENT AND PLAN: 1. Paroxysmal episodes of atrial fibrillation. 2. Sick sinus syndrome status post pacemaker implantation with generator replacement in July of 2018. 3. Profound anemia. 4. History of polycythemia. 5. Probable urinary tract infection. 6. Fall. 7. Reported history of polycythemia vera. 8. Sleep apnea history. This patient was seen in cardiac consultation. The patient's vital signs have been checked during this hospitalization, have not shown any episodes of hypotension, except for the first day when she first came in with a blood pressure of 95/62. Her subsequent blood pressures in the 130s. She indicated that likely the falls may have been related to some volume related. The degree of anemia is also concerning whether she has had any blood loss, especially in the setting of prior history of polycythemia, although, she has had a history of polycythemia. Her hemoglobins since 2019 been in the range of 9 as well and most recently in March of this year had hemoglobin 10. Nevertheless she has been transfused. Her hemoglobin dropped to 8.4. Blood pressure is improved. There are no reports of any fracture anywhere on the CT scan and chest x-ray does not show any evidence of fracture either. She will be monitored. Her telemetry data will be monitored. So far, no arrhythmias. The patient may require pacemaker checked at some point, although, because of COVID-19 isolation the pacemaker operations representative is unlikely and unwilling to come in for pacemaker checks based on my last interaction with them. She does not appear to have any significant pacing issues if needed that will be addressed again. Mainor Araujo M.D. DR: Raymundo JOB#: [id number] CC:
[2019-06-24 12:00] VITALS: BP 109/72
--- NOTE | 2019-06-24 12:02 | Pulmonology Progress Note ---
Subjective ROS Limited/Unobtainable: No Interval Events: no new complains Allergies: Coded Allergies: No Known Allergies (Unverified , 04/24/18) Objective Last 24 Hour Vital Signs Date Time Temp Pulse Resp B/P (MAP) Pulse Ox O2 Delivery O2 Flow Rate FiO2 06/24/19 09:03 96 120/77 06/24/19 09:00 Room Air 06/24/19 08:00 103 06/24/19 08:00 97.9 96 18 120/77 (91) 94 06/24/19 04:00 98.1 101 20 139/81 (100) 96 06/24/19 04:00 82 06/24/19 00:00 82 06/24/19 00:00 97.4 98 18 143/74 (97) 95 06/23/19 21:36 96.8 06/23/19 21:04 106 148/71 06/23/19 21:00 Room Air 06/23/19 20:00 99 06/23/19 20:00 97.6 106 17 148/71 (96) 95 06/23/19 16:00 96.8 70 20 128/71 (90) 96 06/23/19 15:40 107 Intake and Output 06/23/19 06/24/19 19:00 07:00 Intake Total 480 ml 240 ml Balance 480 ml 240 ml Intake Oral 480 ml 240 ml # Voids 4 3 # Bowel Movements 1 HEENT: normocephalic, atraumatic, anicteric Respiratory/Chest: chest wall non-tender Cardiovascular: normal peripheral pulses, regular rhythm Abdomen: no scars Extremities: no clubbing Skin: no rash 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 Microbiology Date/Time Source Procedure Growth Status 06/22/19 15:56 Urine,Clean Catch Urine Culture - Preliminary NO GROWTH AFTER 24 HOURS Resulted Laboratory Tests 06/24/19 08:00: White Blood Count 8.3, Red Blood Count 2.90L, Hemoglobin 8.9L, Hematocrit 26.3L , Mean Corpuscular Volume 91, Mean Corpuscular Hemoglobin 30.6, Mean Corpuscular Hemoglobin Concent 33.7, Red Cell Distribution Width 21.1H, Platelet Count 225, Mean Platelet Volume 10.6H, Neutrophils (%) (Auto) 80.5H, Lymphocytes (%) (Auto) 13.9L, Monocytes (%) (Auto) 2.9, Eosinophils (%) (Auto) 0.4, Basophils (%) (Auto) 2.3H, Sodium Level 140, Potassium Level 4.5, Chloride Level 107, Carbon Dioxide Level 24, Anion Gap 9, Blood Urea Nitrogen 20H, Creatinine 0.8, Estimat Glomerular Filtration Rate > 60, Glucose Level 97, Calcium Level 8.6, Total Bilirubin 0.6, Aspartate Amino Transf (AST/SGOT) 15, Alanine Aminotransferase (ALT/SGPT) 9L, Alkaline Phosphatase 56, Pro-B-Type Natriuretic Peptide 7896H, Total Protein 6.2L, Albumin 2.9L, Globulin 3.3, Albumin/Globulin Ratio 0.9L Current Medications Medications (Trade) Dose Ordered Sig/Escobar Route PRN Reason Start Time Stop Time Status Last Admin Dose Admin Acetaminophen (Tylenol) 650 mg Q4H PRN ORAL fever 06/22/19 19:00 07/22/19 18:59 Acetaminophen/ Hydrocodone Bitart ([place] 10/325) 1 tab Q4H PRN ORAL Severe Pain (Pain Scale 7-10) 06/23/19 16:15 06/30/19 16:14 06/24/19 09:03 Acetaminophen/ Hydrocodone Bitart ([place] 5/325) 1 tab Q4H PRN ORAL Moderate Pain (Pain Scale 4-6) 06/23/19 16:15 06/30/19 16:14 Amiodarone HCl (Cordarone) 200 mg BIOTEC ORAL 06/22/19 21:00 09/20/19 20:59 06/23/19 21:04 Dextrose (Dextrose 50%) 25 ml Q30M PRN IV Hypoglycemia 06/22/19 19:00 09/20/19 18:59 Dextrose (Dextrose 50%) 50 ml Q30M PRN IV Hypoglycemia 06/22/19 19:00 09/20/19 18:59 Escitalopram Oxalate (Lexapro) 10 mg DAILY ORAL 06/23/19 09:00 07/23/19 08:59 06/24/19 09:03 Hydroxyzine HCl (Atarax) 25 mg Q8HR PRN ORAL Itching 06/22/19 23:45 07/22/19 23:44 06/23/19 00:05 Metoprolol Tartrate (Lopressor) 50 mg EVERY 12 HOURS ORAL 06/22/19 21:00 09/20/19 20:59 06/24/19 09:03 Mirtazapine (Remeron) 7.5 mg BEDTIME ORAL 06/22/19 21:00 09/20/19 20:59 06/23/19 21:05 Ondansetron HCl (Zofran) 4 mg Q6H PRN IVP Nausea & Vomiting 06/22/19 19:00 07/22/19 18:59 Polyethylene Glycol (Miralax) 17 gm HSPRN PRN ORAL Constipation 06/22/19 19:00 07/22/19 18:59 Zolpidem Tartrate (Ambien) 5 mg HSPRN PRN ORAL Insomnia 06/22/19 19:00 06/29/19 18:59 Assessment/Plan Problems: (1) RLL pneumonia (2) Pleural effusion (3) Chronic anticoagulation (4) Ribs, multiple fractures (5) Atrial fibrillation (6) Pacemaker (7) COPD (chronic obstructive pulmonary disease) (8) KELVIN (obstructive sleep apnea) Assessment/Plan CXR reviewed, RLL infiltrate will call ID Cardio note reviewed and appreciated heart rate controlled prbc prn symptomatic treatment. Kelly Mejia MD June 24, 2019 12:02
[2019-06-24 13:14] LABS: INR 1.2 (0.9-1.1)
[2019-06-24 16:00] VITALS: BP 99/65
--- NOTE | 2019-06-24 16:04 | NUR ---
CASE MANAGEMENT:REVIEW 06/24/19 SI: PLEURAL EFFUSION COPD. AFIB. RIB FRACTURES. ANEMIA...S/P 2 UNITS PRBC'S 97.9 76 20 109/72 95% ON RA H/H-8.9/26.3 BUN+20 BNP+7896 IS; LEXAPRO PO QD AMIODARONE PO BID LOPRESSOR PO Q12 REMERON PO QHS NORCO PO Q4HRS PRN : TELEMETRY STATUS DCP: FROM HOME PLAN: THORACENTESIS
--- NOTE | 2019-06-24 18:14 | Internal Med Progress Note ---
Subjective Date of Service: June 24, 2019 Physician Name GraceRoshan Attending Physician Antonio Adrian MD Current Medications Medications (Trade) Dose Ordered Sig/Escobar Route PRN Reason Start Time Stop Time Status Last Admin Dose Admin Acetaminophen (Tylenol) 650 mg Q4H PRN ORAL fever 06/22/19 19:00 07/22/19 18:59 Acetaminophen/ Hydrocodone Bitart ([place] 10/325) 1 tab Q4H PRN ORAL Severe Pain (Pain Scale 7-10) 06/23/19 16:15 06/30/19 16:14 06/24/19 13:48 Acetaminophen/ Hydrocodone Bitart ([place] 5/325) 1 tab Q4H PRN ORAL Moderate Pain (Pain Scale 4-6) 06/23/19 16:15 06/30/19 16:14 Amiodarone HCl (Cordarone) 200 mg BIOTEC ORAL 06/22/19 21:00 09/20/19 20:59 06/23/19 21:04 Dextrose (Dextrose 50%) 25 ml Q30M PRN IV Hypoglycemia 06/22/19 19:00 09/20/19 18:59 Dextrose (Dextrose 50%) 50 ml Q30M PRN IV Hypoglycemia 06/22/19 19:00 09/20/19 18:59 Escitalopram Oxalate (Lexapro) 10 mg DAILY ORAL 06/23/19 09:00 07/23/19 08:59 06/24/19 09:03 Hydroxyzine HCl (Atarax) 25 mg Q8HR PRN ORAL Itching 06/22/19 23:45 07/22/19 23:44 06/23/19 00:05 Metoprolol Tartrate (Lopressor) 50 mg EVERY 12 HOURS ORAL 06/22/19 21:00 09/20/19 20:59 06/24/19 09:03 Mirtazapine (Remeron) 7.5 mg BEDTIME ORAL 06/22/19 21:00 09/20/19 20:59 06/23/19 21:05 Ondansetron HCl (Zofran) 4 mg Q6H PRN IVP Nausea & Vomiting 06/22/19 19:00 07/22/19 18:59 Polyethylene Glycol (Miralax) 17 gm HSPRN PRN ORAL Constipation 06/22/19 19:00 6/10/20 18:59 Zolpidem Tartrate (Ambien) 5 mg HSPRN PRN ORAL Insomnia 06/22/19 19:00 06/29/19 18:59 Allergies: Coded Allergies: No Known Allergies (Unverified , 04/24/18) ROS Limited/Unobtainable: No Constitutional: Reports: no symptoms HEENT: Reports: no symptoms Cardiovascular: Reports: chest pain Respiratory: Reports: no symptoms Gastrointestinal/Abdominal: Reports: no symptoms Genitourinary: Reports: no symptoms Neurologic/Psychiatric: Reports: no symptoms Subjective 79 YO F admitted with atypical chest pain. Now severe anemia and acute congestive heart failure. Cover for Int Med-Dr Adrian Objective Last Vital Signs Date Time Temp Pulse Resp B/P (MAP) Pulse Ox O2 Delivery O2 Flow Rate FiO2 06/24/19 16:00 97.1 94 18 99/65 (76) 96 06/24/19 09:00 Room Air Laboratory Tests Test 06/24/19 08:00 06/24/19 12:35 White Blood Count 8.3 K/UL (4.8-10.8) Red Blood Count 2.90 M/UL (4.20-5.40) L Hemoglobin 8.9 G/DL (12.0-16.0) L Hematocrit 26.3 % (37.0-47.0) L Mean Corpuscular Volume 91 FL (80-99) Mean Corpuscular Hemoglobin 30.6 PG (27.0-31.0) Mean Corpuscular Hemoglobin Concent 33.7 G/DL (32.0-36.0) Red Cell Distribution Width 21.1 % (11.6-14.8) H Platelet Count 225 K/UL (150-450) Mean Platelet Volume 10.6 FL (6.5-10.1) H Neutrophils (%) (Auto) 80.5 % (45.0-75.0) H Lymphocytes (%) (Auto) 13.9 % (20.0-45.0) L Monocytes (%) (Auto) 2.9 % (1.0-10.0) Eosinophils (%) (Auto) 0.4 % (0.0-3.0) Basophils (%) (Auto) 2.3 % (0.0-2.0) H Sodium Level 140 MMOL/L (136-145) Potassium Level 4.5 MMOL/L (3.5-5.1) Chloride Level 107 MMOL/L (98-107) Carbon Dioxide Level 24 MMOL/L (21-32) Anion Gap 9 mmol/L (5-15) Blood Urea Nitrogen 20 mg/dL (7-18) H Creatinine 0.8 MG/DL (0.55-1.30) Estimat Glomerular Filtration Rate > 60 mL/min (>60) Glucose Level 97 MG/DL (74-106) Calcium Level 8.6 MG/DL (8.5-10.1) Total Bilirubin 0.6 MG/DL (0.2-1.0) Aspartate Amino Transf (AST/SGOT) 15 U/L (15-37) Alanine Aminotransferase (ALT/SGPT) 9 U/L (12-78) L Alkaline Phosphatase 56 U/L (46-116) Pro-B-Type Natriuretic Peptide 7896 pg/mL (0-125) H Total Protein 6.2 G/DL (6.4-8.2) L Albumin 2.9 G/DL (3.4-5.0) L Globulin 3.3 g/dL Albumin/Globulin Ratio 0.9 (1.0-2.7) L Prothrombin Time 12.2 SEC (9.30-11.50) H Prothromb Time International Ratio 1.2 (0.9-1.1) H Activated Partial Thromboplast Time 38 SEC (23-33) H Microbiology Date/Time Source Procedure Growth Status 06/22/19 15:56 Urine,Clean Catch Urine Culture - Preliminary NO GROWTH AFTER 24 HOURS Resulted Intake and Output 06/23/19 06/24/19 19:00 07:00 Intake Total 480 ml 240 ml Balance 480 ml 240 ml Intake Oral 480 ml 240 ml # Voids 4 3 # Bowel Movements 1 Objective PHYSICAL EXAMINATION: GENERAL: The patient is well-developed and well-nourished female, in no apparent distress. HEENT: Eyes, pupils are equal and responsive to light and accommodation. Extraocular movements are intact. NECK: Supple without lymphadenopathy. CHEST: Lungs are clear to auscultation bilaterally without wheezes or rales. CARDIOVASCULAR: Regular rate. S1 and S2 normal without murmurs, rubs, or gallops. ABDOMEN: Soft, nontender, and nondistended. Positive bowel sounds. No evidence of hepatosplenomegaly. Currently, no rebound or guarding noted. EXTREMITIES: Negative for clubbing, cyanosis, or edema. RECTAL/GENITAL: Not performed. NEUROLOGIC: Cranial nerves II through XII are grossly intact without focal deficits. Assessment/Plan Assessment/Plan ASSESSMENT: This is an 79-year-old female. 1. Chest pain. 2. Fall injury. 3. Severe anemia. 4. Atrial fibrillation. 5. Polycythemia vera. 6. Hypertension. 7. Obstructive sleep apnea. 8. Coronary artery disease. 9. Hypercholesterolemia. 10. Congestive heart failure; TGZ=[id number] 11. Right pleural effusion TREATMENT: 1. Chest pain. This may be secondary to fall injury. Initial troponin level was negative. Repeat troponin levels are pending. A Cardiology consultation has been obtained with Dr. Mainor Araujo. 2. Severe anemia. The patient has been typed and crossed for 2 units of packed RBCs. Transfuse when available. Severe anemia may be secondary to gastrointestinal hemorrhage, however, the patient denies melena or bright red blood per rectum. 3. Atrial fibrillation. As above, a Cardiology consultation has been obtained with Dr. Mainor Araujo. 4. Polycythemia vera. The patient is currently anemic. 5. Hypertension. Continue metoprolol as above. 6. Obstructive sleep apnea. 7. Coronary artery disease, status post myocardial infarction. As above, a Cardiology consultation has been obtained with Dr. Mainor Araujo. 8. Hypercholesteremia. 9. Congestive heart failure. 10. Pacemaker in situ. Pacemaker check is pending. 11. right thoracentesis pending Roshan Edwards MD June 24, 2019 18:14
[2019-06-24] MEDS ORDERED: DIPHENHYDRAMINE25 M1 ORAL (18:33)
[2019-06-24] MEDS ORDERED: HYDREA500 MG PO (18:41)
[2019-06-24] MEDS ORDERED: PACERONE200 MG ORAL (18:46)
[2019-06-24] MEDS ORDERED: LORATADINE10 M1 PO (18:48)
[2019-06-24] MEDS ORDERED: GABAPENTIN100 MG ORAL (18:49)
[2019-06-24 20:00] VITALS: BP 107/59
--- NOTE | 2019-06-24 20:08 | NUR ---
HAND-OFF: Report given to IRA Cooley. Pt in stable condition, endorsed plan of care.
--- NOTE | 2019-06-24 20:10 | NUR ---
NURSE NOTES: Got report from Sonia ROTH. Pt in stable condition. Denies any pain. Denies any n/v or SOB. No s/s of distress or discomfort noted. Pt resting in bed comfortably. Bed in low and locked position, call light within reach, bedside table within reach. Continue to monitor.
[2019-06-24] MEDS: Amiodarone 200mg tab ORAL SCH (21:00)
[2019-06-25] VITALS: BP 105/60
[2019-06-25 04:00] VITALS: BP 134/85
[2019-06-25 07:25] LABS: BASOPHILS % (AUTO) 3.2 % (0.0-2.0); EOSINOPHILS % (AUTO) 0.5 % (0.0-3.0); HEMOGLOBIN 8.6 G/DL (12.0-16.0); LYMPHOCYTES % (AUTO) 16.1 % (20.0-45.0); MEAN CORPUSCULAR VOLUME 91 FL (80-99); MONOCYTES % (AUTO) 3.3 % (1.0-10.0); PLATELET COUNT 189 K/UL (150-450); RED BLOOD COUNT 2.84 M/UL (4.20-5.40); RED CELL DISTRIBUTION WIDTH 21.9 % (11.6-14.8); WHITE BLOOD COUNT 6.9 K/UL (4.8-10.8)
--- NOTE | 2019-06-25 07:30 | NUR ---
HAND-OFF: Report given to Gianni ROTH.
[2019-06-25 07:49] LABS: ANION GAP 7 mmol/L (5-15); BLOOD UREA NITROGEN 22 mg/dL (7-18); CALCIUM 8.5 MG/DL (8.5-10.1); CARBON DIOXIDE 24 MMOL/L (21-32); CHLORIDE 108 MMOL/L (98-107); POTASSIUM 4.7 MMOL/L (3.5-5.1); SODIUM 139 MMOL/L (136-145)
[2019-06-25 08:00] VITALS: BP 123/66
--- NOTE | 2019-06-25 08:40 | NUR ---
NURSE NOTES: Pt in bed low position, call light next to patient, pt is able to ambulate with steady gait, no bed alarm needed, pt is Ox4 calm and cooperative, pt is AV pacing with SNR, pt is S/P fall, pt is scheduled for a thoracentesis today, pt is aware, no s/s of distress or sob noted...
[2019-06-25] MEDS: Metoprolol Tartrate 50mg tab ORAL SCH ×2 (09:32→22:59)
[2019-06-25 12:00] VITALS: BP 117/56
--- NOTE | 2019-06-25 13:15 | Pulmonology Progress Note ---
Subjective ROS Limited/Unobtainable: No Interval Events: no new complains Constitutional: Reports: no symptoms HEENT: Repors: no symptoms Allergies: Coded Allergies: No Known Allergies (Unverified , 04/24/18) Objective Last 24 Hour Vital Signs Date Time Temp Pulse Resp B/P (MAP) Pulse Ox O2 Delivery O2 Flow Rate FiO2 06/25/19 09:32 65 123/66 06/25/19 08:57 Room Air 06/25/19 08:00 97.9 65 17 123/66 (85) 92 06/25/19 04:00 74 06/25/19 04:00 98.8 99 18 134/85 (101) 97 06/25/19 00:00 64 06/25/19 00:00 97.8 60 16 105/60 (75) 95 06/24/19 22:08 97.1 06/24/19 21:00 60 107/59 06/24/19 21:00 Room Air 06/24/19 20:00 97.2 60 16 107/59 (75) 95 06/24/19 20:00 104 06/24/19 16:00 97.1 94 18 99/65 (76) 96 06/24/19 16:00 93 Intake and Output 06/24/19 06/25/19 19:00 07:00 Intake Total 120 ml Balance 120 ml Intake Oral 120 ml # Voids 3 2 HEENT: normocephalic, atraumatic, anicteric Respiratory/Chest: chest wall non-tender Cardiovascular: normal peripheral pulses, regular rhythm Abdomen: normal bowel sounds, no scars Extremities: no clubbing Skin: no rash 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 Microbiology Date/Time Source Procedure Growth Status 06/22/19 15:56 Urine,Clean Catch Urine Culture - Final Mixed Urogenital Contaminants Complete Laboratory Tests 06/25/19 06:35: White Blood Count 6.9, Red Blood Count 2.84L, Hemoglobin 8.6L, Hematocrit 26.0L , Mean Corpuscular Volume 91, Mean Corpuscular Hemoglobin 30.3, Mean Corpuscular Hemoglobin Concent 33.1, Red Cell Distribution Width 21.9H, Platelet Count 189, Mean Platelet Volume 8.3, Neutrophils (%) (Auto) 77.0H, Lymphocytes (%) (Auto) 16.1L, Monocytes (%) (Auto) 3.3, Eosinophils (%) (Auto) 0.5, Basophils (%) (Auto) 3.2H, Sodium Level 139, Potassium Level 4.7, Chloride Level 108H, Carbon Dioxide Level 24, Anion Gap 7, Blood Urea Nitrogen 22H, Creatinine 1.0, Estimat Glomerular Filtration Rate 53.2, Glucose Level 86, Calcium Level 8.5, Pro-B-Type Natriuretic Peptide 5060H Current Medications Medications (Trade) Dose Ordered Sig/Escobar Route PRN Reason Start Time Stop Time Status Last Admin Dose Admin Acetaminophen (Tylenol) 650 mg Q4H PRN ORAL fever 06/22/19 19:00 07/22/19 18:59 Acetaminophen/ Hydrocodone Bitart ([place] 10/325) 1 tab Q4H PRN ORAL Severe Pain (Pain Scale 7-10) 06/23/19 16:15 06/30/19 16:14 06/24/19 21:38 Acetaminophen/ Hydrocodone Bitart ([place] 5/325) 1 tab Q4H PRN ORAL Moderate Pain (Pain Scale 4-6) 06/23/19 16:15 06/30/19 16:14 Amiodarone HCl (Cordarone) 200 mg BIOTEC ORAL 06/22/19 21:00 09/20/19 20:59 06/24/19 21:00 Dextrose (Dextrose 50%) 25 ml Q30M PRN IV Hypoglycemia 06/22/19 19:00 09/20/19 18:59 Dextrose (Dextrose 50%) 50 ml Q30M PRN IV Hypoglycemia 06/22/19 19:00 09/20/19 18:59 Escitalopram Oxalate (Lexapro) 10 mg DAILY ORAL 06/23/19 09:00 07/23/19 08:59 06/25/19 09:32 Hydroxyzine HCl (Atarax) 25 mg Q8HR PRN ORAL Itching 06/22/19 23:45 07/22/19 23:44 06/23/19 00:05 Metoprolol Tartrate (Lopressor) 50 mg EVERY 12 HOURS ORAL 06/22/19 21:00 09/20/19 20:59 06/25/19 09:32 Mirtazapine (Remeron) 7.5 mg BEDTIME ORAL 06/22/19 21:00 8/9/20 20:59 06/24/19 21:00 Ondansetron HCl (Zofran) 4 mg Q6H PRN IVP Nausea & Vomiting 06/22/19 19:00 07/22/19 18:59 Polyethylene Glycol (Miralax) 17 gm HSPRN PRN ORAL Constipation 06/22/19 19:00 07/22/19 18:59 Zolpidem Tartrate (Ambien) 5 mg HSPRN PRN ORAL Insomnia 06/22/19 19:00 06/29/19 18:59 Assessment/Plan Problems: (1) RLL pneumonia (2) Pleural effusion (3) Chronic anticoagulation (4) Ribs, multiple fractures (5) Atrial fibrillation (6) Pacemaker (7) COPD (chronic obstructive pulmonary disease) (8) KELVIN (obstructive sleep apnea) Assessment/Plan CXR reviewed, RLL infiltrate, No effusion seen on CXR afebrile, COVID pending Cardio note reviewed and appreciated heart rate controlled prbc prn symptomatic treatment. Kelly Mejia MD June 25, 2019 13:15
--- NOTE | 2019-06-25 14:50 | Consultation ---
History of Present Illness General Date patient seen: June 25, 2019 Chief Complaint: Multiple Trauma/Fall Present Illness HPI 79 y/o F with hx of pAfib, Sinus node dysfunction s/p PPM (batter exchange July 2018), s/p KELI, GERD, polycythemia vera, HLD, MDD, anemia, NSTEMI s/p normal cardiac catheterization 2019, HTN, KELVIN, dCHF presented to ED on 06/22/19 with R side chest pain and abdomen after a fall last week. She had CT c/abd/p done in ER and showed R side effusion and rib fracture. Upon admission, Hgb 5.7. Denied SOB, orthopnea, dizziness, n/v/d, f/c Allergies: Coded Allergies: No Known Allergies (Unverified , 04/24/18) Medication History Scheduled Amiodarone Hcl* (Pacerone*), 200 MG ORAL DAILY, (Reported) Gabapentin* (Gabapentin*), 300 MG ORAL THREE TIMES A DAY, (Reported) Hydroxyurea* (HYDREA 500mg*), 500 MG PO DAILY, (Reported) Loratadine (Loratadine), 10 MG PO DAILY, (Reported) Scheduled PRN Diphenhydramine Hcl* (Diphenhydramine Hcl*), 25 MG ORAL DAILY PRN for ALLERGIES, (Reported) Discontinued Medications Acetaminophen With Codeine (T#3) (Tylenol #3 Tab*), 1 TAB ORAL Q4H PRN Discontinued Reason: Therapy completed Clonidine Hcl* (Catapres*), 0.1 MG ORAL EVERY 8 HOURS PRN for SBP >170, ( Reported) Discontinued Reason: Therapy completed Dabigatran Etexilate Mesylate* (Pradaxa*), 150 MG PO Q12H, (Reported) Discontinued Reason: Therapy completed Escitalopram Oxalate* (Lexapro*), 10 MG ORAL DAILY, (Reported) Discontinued Reason: Therapy completed Lidocaine HCL 2% Jelly* (Lidocaine Jelly 2%*), 5 ML TOPIC DAILY Discontinued Reason: Therapy completed Metoprolol Tartrate* (Metoprolol Tartrate*), 50 MG ORAL EVERY 12 HOURS, ( Reported) Discontinued Reason: Therapy completed Mirtazapine* (Mirtazapine*), 7.5 MG ORAL BEDTIME, (Reported) Discontinued Reason: Therapy completed Omeprazole (Omeprazole), 20 MG ORAL DAILY, (Reported) Discontinued Reason: Therapy completed Patient History Healthcare decision maker Resuscitation status Advanced Directive on File Patient History Narrative PMhx: As above Shx: She does not smoke or drink alcoholic beverages. She lives at home with her nephew. FMHx: non contributory Review of Systems All Other Systems: negative except mentioned in HPI Physical Exam Physical Exam Narrative GENERAL: The patient is well-developed and well-nourished female, in no apparent distress. HEENT: Eyes, pupils are equal and responsive to light and accommodation. Extraocular movements are intact. NECK: Supple without lymphadenopathy. CHEST: Lungs are clear to auscultation bilaterally without wheezes or rales. CARDIOVASCULAR: Regular rate. S1 and S2 normal without murmurs, rubs, or gallops. ABDOMEN: Soft, nontender, and nondistended. Positive bowel sounds. No evidence of hepatosplenomegaly. Currently, no rebound or guarding noted. Last 24 Hour Vital Signs Date Time Temp Pulse Resp B/P (MAP) Pulse Ox O2 Delivery O2 Flow Rate FiO2 06/25/19 12:00 97.7 67 16 117/56 (76) 93 06/25/19 11:36 68 06/25/19 09:32 65 123/66 06/25/19 08:57 Room Air 06/25/19 08:00 97.9 65 17 123/66 (85) 92 06/25/19 07:27 91 06/25/19 04:00 74 06/25/19 04:00 98.8 99 18 134/85 (101) 97 06/25/19 00:00 64 06/25/19 00:00 97.8 60 16 105/60 (75) 95 06/24/19 22:08 97.1 06/24/19 21:00 60 107/59 06/24/19 21:00 Room Air 06/24/19 20:00 97.2 60 16 107/59 (75) 95 06/24/19 20:00 104 06/24/19 16:00 97.1 94 18 99/65 (76) 96 06/24/19 16:00 93 Intake and Output 06/24/19 06/25/19 19:00 07:00 Intake Total 120 ml Balance 120 ml Intake Oral 120 ml # Voids 3 2 Laboratory Tests Test 06/25/19 06:35 White Blood Count 6.9 K/UL (4.8-10.8) Red Blood Count 2.84 M/UL (4.20-5.40) L Hemoglobin 8.6 G/DL (12.0-16.0) L Hematocrit 26.0 % (37.0-47.0) L Mean Corpuscular Volume 91 FL (80-99) Mean Corpuscular Hemoglobin 30.3 PG (27.0-31.0) Mean Corpuscular Hemoglobin Concent 33.1 G/DL (32.0-36.0) Red Cell Distribution Width 21.9 % (11.6-14.8) H Platelet Count 189 K/UL (150-450) Mean Platelet Volume 8.3 FL (6.5-10.1) Neutrophils (%) (Auto) 77.0 % (45.0-75.0) H Lymphocytes (%) (Auto) 16.1 % (20.0-45.0) L Monocytes (%) (Auto) 3.3 % (1.0-10.0) Eosinophils (%) (Auto) 0.5 % (0.0-3.0) Basophils (%) (Auto) 3.2 % (0.0-2.0) H Sodium Level 139 MMOL/L (136-145) Potassium Level 4.7 MMOL/L (3.5-5.1) Chloride Level 108 MMOL/L (98-107) H Carbon Dioxide Level 24 MMOL/L (21-32) Anion Gap 7 mmol/L (5-15) Blood Urea Nitrogen 22 mg/dL (7-18) H Creatinine 1.0 MG/DL (0.55-1.30) Estimat Glomerular Filtration Rate 53.2 mL/min (>60) Glucose Level 86 MG/DL (74-106) Calcium Level 8.5 MG/DL (8.5-10.1) Pro-B-Type Natriuretic Peptide 5060 pg/mL (0-125) H Height (Feet): 5 Height (Inches): 0.00 Weight (Pounds): 140 Medications Current Medications Medications (Trade) Dose Ordered Sig/Escobar Route PRN Reason Start Time Stop Time Status Last Admin Dose Admin Acetaminophen (Tylenol) 650 mg Q4H PRN ORAL fever 06/22/19 19:00 07/22/19 18:59 Acetaminophen/ Hydrocodone Bitart ([place] 10/325) 1 tab Q4H PRN ORAL Severe Pain (Pain Scale 7-10) 06/23/19 16:15 06/30/19 16:14 06/24/19 21:38 Acetaminophen/ Hydrocodone Bitart ([place] 5/325) 1 tab Q4H PRN ORAL Moderate Pain (Pain Scale 4-6) 06/23/19 16:15 06/30/19 16:14 Amiodarone HCl (Cordarone) 200 mg BIOTEC ORAL 06/22/19 21:00 09/20/19 20:59 06/24/19 21:00 Dextrose (Dextrose 50%) 25 ml Q30M PRN IV Hypoglycemia 06/22/19 19:00 09/20/19 18:59 Dextrose (Dextrose 50%) 50 ml Q30M PRN IV Hypoglycemia 06/22/19 19:00 09/20/19 18:59 Escitalopram Oxalate (Lexapro) 10 mg DAILY ORAL 06/23/19 09:00 07/23/19 08:59 06/25/19 09:32 Hydroxyzine HCl (Atarax) 25 mg Q8HR PRN ORAL Itching 06/22/19 23:45 07/22/19 23:44 06/23/19 00:05 Metoprolol Tartrate (Lopressor) 50 mg EVERY 12 HOURS ORAL 06/22/19 21:00 09/20/19 20:59 06/25/19 09:32 Mirtazapine (Remeron) 7.5 mg BEDTIME ORAL 06/22/19 21:00 09/20/19 20:59 06/24/19 21:00 Ondansetron HCl (Zofran) 4 mg Q6H PRN IVP Nausea & Vomiting 06/22/19 19:00 07/22/19 18:59 Polyethylene Glycol (Miralax) 17 gm HSPRN PRN ORAL Constipation 06/22/19 19:00 07/22/19 18:59 Zolpidem Tartrate (Ambien) 5 mg HSPRN PRN ORAL Insomnia 06/22/19 19:00 06/29/19 18:59 Assessment/Plan Assessment/Plan: Abx: None Assessment: Afebrile No leukocytosis -06/21 u/a wbc 15-20, nit neg, leuk+3; UCx <10 mixed urogenital contaminants s/p Mechanical fall Rib, abdominal pain- 2ry to R rib fractures and large R pleural effusion-? hemothorax -06/22 Chest US: Positive for right pleural effusion -06/[address]: 1. 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 No acute intracranial pathology is detected. CT C/abd/p:No evidence of acute injury to the abdominal or pelvic viscera. Somewhat limited study due to motion artifact. Cholelithiasis. Acute posterior medial lower right rib fractures. Moderate to large right pleural effusion, possibly containing an element of the hemothorax. Cardiomegaly.ASCVD. No pneumothoraces. Acute on chronic anemia -08/06/18 sp EGD: Normal upper endoscopy, status post biopsy. -path: mild chronic gastritis, no H. pylori identified pAfib hx of rib fractures Sinus node dysfunction s/p PPM (batter exchange July 2018) s/p KELI GERD polycythemia vera HLD MDD anemia NSTEMI s/p normal cardiac catheterization 2019 HTN KELVIN dCHF Plan: -Continue to monitor off abx -f/u cx -Monitor CBC/CMP, temperatures -plan for thoracentesis -aspiration precautions Thank you for consulting [facility]. Will contiue to follow along with you. Discussed with Alejandrina Gibson M.D. June 25, 2019 14:50
[2019-06-25 16:16] VITALS: BP 108/58
--- NOTE | 2019-06-25 16:35 | Internal Med Progress Note ---
Subjective Date of Service: June 25, 2019 Physician Name GraceRoshan Attending Physician Antonio Adrian MD Current Medications Medications (Trade) Dose Ordered Sig/Escobar Route PRN Reason Start Time Stop Time Status Last Admin Dose Admin Acetaminophen (Tylenol) 650 mg Q4H PRN ORAL fever 06/22/19 19:00 07/22/19 18:59 Acetaminophen/ Hydrocodone Bitart ([place] 10/325) 1 tab Q4H PRN ORAL Severe Pain (Pain Scale 7-10) 06/23/19 16:15 06/30/19 16:14 06/24/19 21:38 Acetaminophen/ Hydrocodone Bitart ([place] 5/325) 1 tab Q4H PRN ORAL Moderate Pain (Pain Scale 4-6) 06/23/19 16:15 06/30/19 16:14 Amiodarone HCl (Cordarone) 200 mg BIOTEC ORAL 06/22/19 21:00 09/20/19 20:59 06/24/19 21:00 Dextrose (Dextrose 50%) 25 ml Q30M PRN IV Hypoglycemia 06/22/19 19:00 09/20/19 18:59 Dextrose (Dextrose 50%) 50 ml Q30M PRN IV Hypoglycemia 06/22/19 19:00 09/20/19 18:59 Escitalopram Oxalate (Lexapro) 10 mg DAILY ORAL 06/23/19 09:00 07/23/19 08:59 06/25/19 09:32 Hydroxyzine HCl (Atarax) 25 mg Q8HR PRN ORAL Itching 06/22/19 23:45 07/22/19 23:44 06/23/19 00:05 Metoprolol Tartrate (Lopressor) 50 mg EVERY 12 HOURS ORAL 06/22/19 21:00 09/20/19 20:59 06/25/19 09:32 Mirtazapine (Remeron) 7.5 mg BEDTIME ORAL 06/22/19 21:00 09/20/19 20:59 06/24/19 21:00 Ondansetron HCl (Zofran) 4 mg Q6H PRN IVP Nausea & Vomiting 06/22/19 19:00 07/22/19 18:59 Polyethylene Glycol (Miralax) 17 gm HSPRN PRN ORAL Constipation 06/22/19 19:00 6/10/20 18:59 Zolpidem Tartrate (Ambien) 5 mg HSPRN PRN ORAL Insomnia 06/22/19 19:00 06/29/19 18:59 Allergies: Coded Allergies: No Known Allergies (Unverified , 04/24/18) ROS Limited/Unobtainable: No Constitutional: Reports: no symptoms HEENT: Reports: no symptoms Cardiovascular: Reports: chest pain Respiratory: Reports: no symptoms Gastrointestinal/Abdominal: Reports: no symptoms Genitourinary: Reports: no symptoms Neurologic/Psychiatric: Reports: no symptoms Subjective 79 YO F admitted with atypical chest pain. Now severe anemia and acute congestive heart failure. Cover for Int Med-Dr Adrian Objective Last Vital Signs Date Time Temp Pulse Resp B/P (MAP) Pulse Ox O2 Delivery O2 Flow Rate FiO2 06/25/19 16:16 98.1 60 19 108/58 (75) 95 06/25/19 08:57 Room Air Laboratory Tests Test 06/25/19 06:35 White Blood Count 6.9 K/UL (4.8-10.8) Red Blood Count 2.84 M/UL (4.20-5.40) L Hemoglobin 8.6 G/DL (12.0-16.0) L Hematocrit 26.0 % (37.0-47.0) L Mean Corpuscular Volume 91 FL (80-99) Mean Corpuscular Hemoglobin 30.3 PG (27.0-31.0) Mean Corpuscular Hemoglobin Concent 33.1 G/DL (32.0-36.0) Red Cell Distribution Width 21.9 % (11.6-14.8) H Platelet Count 189 K/UL (150-450) Mean Platelet Volume 8.3 FL (6.5-10.1) Neutrophils (%) (Auto) 77.0 % (45.0-75.0) H Lymphocytes (%) (Auto) 16.1 % (20.0-45.0) L Monocytes (%) (Auto) 3.3 % (1.0-10.0) Eosinophils (%) (Auto) 0.5 % (0.0-3.0) Basophils (%) (Auto) 3.2 % (0.0-2.0) H Sodium Level 139 MMOL/L (136-145) Potassium Level 4.7 MMOL/L (3.5-5.1) Chloride Level 108 MMOL/L (98-107) H Carbon Dioxide Level 24 MMOL/L (21-32) Anion Gap 7 mmol/L (5-15) Blood Urea Nitrogen 22 mg/dL (7-18) H Creatinine 1.0 MG/DL (0.55-1.30) Estimat Glomerular Filtration Rate 53.2 mL/min (>60) Glucose Level 86 MG/DL (74-106) Calcium Level 8.5 MG/DL (8.5-10.1) Pro-B-Type Natriuretic Peptide 5060 pg/mL (0-125) H Intake and Output 06/24/19 06/25/19 19:00 07:00 Intake Total 120 ml Balance 120 ml Intake Oral 120 ml # Voids 3 2 Objective PHYSICAL EXAMINATION: GENERAL: The patient is well-developed and well-nourished female, in no apparent distress. HEENT: Eyes, pupils are equal and responsive to light and accommodation. Extraocular movements are intact. NECK: Supple without lymphadenopathy. CHEST: Lungs are clear to auscultation bilaterally without wheezes or rales. CARDIOVASCULAR: Regular rate. S1 and S2 normal without murmurs, rubs, or gallops. ABDOMEN: Soft, nontender, and nondistended. Positive bowel sounds. No evidence of hepatosplenomegaly. Currently, no rebound or guarding noted. EXTREMITIES: Negative for clubbing, cyanosis, or edema. RECTAL/GENITAL: Not performed. NEUROLOGIC: Cranial nerves II through XII are grossly intact without focal deficits. Assessment/Plan Assessment/Plan ASSESSMENT: This is an 79-year-old female. 1. Chest pain. 2. Fall injury. 3. Severe anemia. 4. Atrial fibrillation. 5. Polycythemia vera. 6. Hypertension. 7. Obstructive sleep apnea. 8. Coronary artery disease. 9. Hypercholesterolemia. 10. Congestive heart failure; NVO=[id number] 11. Right pleural effusion TREATMENT: 1. Chest pain. This may be secondary to fall injury. Initial troponin level was negative. Repeat troponin levels are pending. A Cardiology consultation has been obtained with Dr. Mainor Araujo. 2. Severe anemia. The patient has been typed and crossed for 2 units of packed RBCs. Transfuse when available. Severe anemia may be secondary to gastrointestinal hemorrhage, however, the patient denies melena or bright red blood per rectum. 3. Atrial fibrillation. As above, a Cardiology consultation has been obtained with Dr. Mainor Araujo. 4. Polycythemia vera. The patient is currently anemic. 5. Hypertension. Continue metoprolol as above. 6. Obstructive sleep apnea. 7. Coronary artery disease, status post myocardial infarction. As above, a Cardiology consultation has been obtained with Dr. Mainor Araujo. 8. Hypercholesteremia. 9. Congestive heart failure. 10. Pacemaker in situ. Pacemaker check is pending. 11. right thoracentesis pending Roshan Edwards MD June 25, 2019 16:35
--- NOTE | 2019-06-25 19:12 | NUR ---
HAND-OFF: Report given to deion Christopher thoracentesis will be done tomorrow.
--- NOTE | 2019-06-25 19:25 | NUR ---
NURSE NOTES: Pt is alert and oriented x4, turkmen speaking, Has a flat, depressed affect, Pt is in bed, sitting up, bed is in lowest position, call light within reach, needs assistance to ambulate as pt is unsteady. pt is SR, A pacing with SR, pt is S/P fall 1 week ago, pt is scheduled for a thoracentesis 06/25. pt is aware, no s/s of distress or sob noted- will continue to monitor
[2019-06-25 20:00] VITALS: BP 119/61
--- NOTE | 2019-06-25 20:00 | Cardiology Progress Note ---
Assessment/Plan Assessment/Plan 1. Paroxysmal episodes of atrial fibrillation. 2. Sick sinus syndrome status post pacemaker implantation with generator replacement in July of 2018. 3. Profound anemia. 4. History of polycythemia. 5. Probable urinary tract infection. 6. Fall. 7. Reported history of polycythemia vera. 8. Sleep apnea history. 9. Rib fracture 10 hemothorax hgb stable for the past fe day d/w dr aguilar ct reviewed tele revised off anticoagulation on amiod Subjective Subjective Pt in stable condition. Denies any pain. Denies any n/v or SOB. No s/s of distress or discomfort noted. Pt resting in bed comfortably Objective Last 24 Hour Vital Signs Date Time Temp Pulse Resp B/P (MAP) Pulse Ox O2 Delivery O2 Flow Rate FiO2 06/25/19 16:16 98.1 60 19 108/58 (75) 95 06/25/19 15:39 60 06/25/19 12:00 97.7 67 16 117/56 (76) 93 06/25/19 11:36 68 06/25/19 09:32 65 123/66 06/25/19 08:57 Room Air 06/25/19 08:00 97.9 65 17 123/66 (85) 92 06/25/19 07:27 91 06/25/19 04:00 74 06/25/19 04:00 98.8 99 18 134/85 (101) 97 06/25/19 00:00 64 06/25/19 00:00 97.8 60 16 105/60 (75) 95 06/24/19 22:08 97.1 06/24/19 21:00 60 107/59 06/24/19 21:00 Room Air Intake and Output 06/24/19 06/25/19 19:00 07:00 Intake Total 120 ml Balance 120 ml Intake Oral 120 ml # Voids 3 2 Laboratory Tests Test 06/25/19 06:35 White Blood Count 6.9 K/UL (4.8-10.8) Red Blood Count 2.84 M/UL (4.20-5.40) L Hemoglobin 8.6 G/DL (12.0-16.0) L Hematocrit 26.0 % (37.0-47.0) L Mean Corpuscular Volume 91 FL (80-99) Mean Corpuscular Hemoglobin 30.3 PG (27.0-31.0) Mean Corpuscular Hemoglobin Concent 33.1 G/DL (32.0-36.0) Red Cell Distribution Width 21.9 % (11.6-14.8) H Platelet Count 189 K/UL (150-450) Mean Platelet Volume 8.3 FL (6.5-10.1) Neutrophils (%) (Auto) 77.0 % (45.0-75.0) H Lymphocytes (%) (Auto) 16.1 % (20.0-45.0) L Monocytes (%) (Auto) 3.3 % (1.0-10.0) Eosinophils (%) (Auto) 0.5 % (0.0-3.0) Basophils (%) (Auto) 3.2 % (0.0-2.0) H Sodium Level 139 MMOL/L (136-145) Potassium Level 4.7 MMOL/L (3.5-5.1) Chloride Level 108 MMOL/L (98-107) H Carbon Dioxide Level 24 MMOL/L (21-32) Anion Gap 7 mmol/L (5-15) Blood Urea Nitrogen 22 mg/dL (7-18) H Creatinine 1.0 MG/DL (0.55-1.30) Estimat Glomerular Filtration Rate 53.2 mL/min (>60) Glucose Level 86 MG/DL (74-106) Calcium Level 8.5 MG/DL (8.5-10.1) Pro-B-Type Natriuretic Peptide 5060 pg/mL (0-125) H Mainor Araujo MD June 25, 2019 20:00
[2019-06-25] MEDS: HYDROcodone/Acetamin 10/325 tab ORAL PRN (22:54)
[2019-06-25] MEDS: Amiodarone 200mg tab ORAL SCH (22:55)
[2019-06-26] VITALS: BP 110/60
[2019-06-26 04:00] VITALS: BP 114/60
--- NOTE | 2019-06-26 07:25 | NUR ---
NURSE NOTES: Pt is awake, alert and oriented x4, paragu[place] speaking, able to follow and verbalize needs in urdu. able to feed self. Appears flat, depressed affect. Pt is in bed in HOB elevated. bed is in lowest position, siderails are upx3. call light within reach, needs assistance to ambulate as pt is unsteady. BSC in placed. will continue to monitor
[2019-06-26 07:45] LABS: ALANINE AMINOTRANSFERASE 13 U/L (12-78); ALBUMIN 2.6 G/DL (3.4-5.0); ALBUMIN/GLOBULIN RATIO 0.8 (1.0-2.7); ALKALINE PHOSPHATASE 50 U/L (46-116); ANION GAP 10 mmol/L (5-15); ASPARTATE AMINO TRANSFERASE 17 U/L (15-37); BILIRUBIN,TOTAL 0.5 MG/DL (0.2-1.0); BLOOD UREA NITROGEN 24 mg/dL (7-18); CALCIUM 8.3 MG/DL (8.5-10.1); CARBON DIOXIDE 23 MMOL/L (21-32); CHLORIDE 109 MMOL/L (98-107); CREATININE 0.9 MG/DL (0.55-1.30); POTASSIUM 4.2 MMOL/L (3.5-5.1); SODIUM 142 MMOL/L (136-145)
[2019-06-26 08:00] VITALS: BP 111/55
[2019-06-26 08:13] LABS: HEMATOCRIT 21.5 % (37.0-47.0); HEMOGLOBIN 7.3 G/DL (12.0-16.0); MEAN CORPUSCULAR VOLUME 90 FL (80-99); PLATELET COUNT 170 K/UL (150-450); RED BLOOD COUNT 2.39 M/UL (4.20-5.40); RED CELL DISTRIBUTION WIDTH 20.8 % (11.6-14.8); WHITE BLOOD COUNT 4.8 K/UL (4.8-10.8)
[2019-06-26] MEDS: Metoprolol Tartrate 50mg tab ORAL SCH ×2 (08:30→22:21)
--- NOTE | 2019-06-26 08:57 | NUR ---
NURSE NOTES: Notified Dr. Adrian for abnormal lab results. H/H 7.3/21.5. awaiting for a callback. will cont to monitor. Addendum: 06/26/19 at 1007 by LEYDI MCCARTHY LVN new order obtained. will cont the plan of care.
[2019-06-26 11:59] VITALS: BP 97/64
--- NOTE | 2019-06-26 12:48 | NUR ---
CASE MANAGEMENT:REVIEW 06/26/19 SI: PLEURAL EFFUSION. COPD.AFIB. CHF RIB FRACTURES. ANEMIA...S/P 2 UNITS PRBC'S 98.7 71 20 97/64 94% ON RA H/H-7.3/21.5 BUN+24 BNP+2045 IS; LEXAPRO PO QD AMIODARONE PO BID LOPRESSOR PO Q12 REMERON PO QHS NORCO PO Q4HRS PRN : TELEMETRY STATUS DCP: FROM HOME PLAN: THORACENTESIS TRANSFUSE PRB'S
--- NOTE | 2019-06-26 13:06 | Pulmonology Progress Note ---
Subjective ROS Limited/Unobtainable: No Interval Events: no new complains Constitutional: Reports: no symptoms HEENT: Repors: no symptoms Allergies: Coded Allergies: No Known Allergies (Unverified , 04/24/18) Objective Last 24 Hour Vital Signs Date Time Temp Pulse Resp B/P (MAP) Pulse Ox O2 Delivery O2 Flow Rate FiO2 06/26/19 11:59 98.7 71 20 97/64 (75) 94 06/26/19 08:30 65 111/55 06/26/19 08:00 97.7 65 18 111/55 (73) 93 06/26/19 04:00 61 06/26/19 04:00 98.6 58 18 114/60 (78) 94 06/26/19 00:00 64 06/26/19 00:00 98.7 70 18 110/60 (77) 93 06/25/19 23:24 98.1 06/25/19 22:59 69 119/61 06/25/19 21:00 Room Air 06/25/19 20:00 99.2 68 18 119/61 (80) 92 06/25/19 20:00 84 06/25/19 16:16 98.1 60 19 108/58 (75) 95 06/25/19 15:39 60 Intake and Output 06/25/19 06/26/19 19:00 07:00 Intake Total 900 ml Balance 900 ml Intake Oral 900 ml # Voids 3 3 HEENT: normocephalic, atraumatic, anicteric Respiratory/Chest: chest wall non-tender, crackles/rales Cardiovascular: normal peripheral pulses, regular rhythm Abdomen: normal bowel sounds, no scars Extremities: no clubbing Skin: no rash 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/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 Laboratory Tests 06/26/19 06:20: White Blood Count 4.8, Red Blood Count 2.39L, Hemoglobin 7.3L, Hematocrit 21.5L , Mean Corpuscular Volume 90, Mean Corpuscular Hemoglobin 30.6, Mean Corpuscular Hemoglobin Concent 34.0, Red Cell Distribution Width 20.8H, Platelet Count 170, Mean Platelet Volume 8.0, Neutrophils (%) (Auto) , Lymphocytes (%) (Auto) , Monocytes (%) (Auto) , Eosinophils (%) (Auto) , Basophils (%) (Auto) , Differential Total Cells Counted 100, Neutrophils % ( Manual) 80H, Lymphocytes % (Manual) 17L, Monocytes % (Manual) 3, Eosinophils % ( Manual) 0, Basophils % (Manual) 0, Band Neutrophils 0, Platelet Estimate Adequate, Platelet Morphology Normal, Hypochromasia 1+, Anisocytosis 3+, Tear Drop Cells Occasional, Ovalocytes 2+, Sodium Level 142, Potassium Level 4.2, Chloride Level 109H, Carbon Dioxide Level 23, Anion Gap 10, Blood Urea Nitrogen 24H, Creatinine 0.9, Estimat Glomerular Filtration Rate > 60, Glucose Level 85, Calcium Level 8.3L, Total Bilirubin 0.5, Aspartate Amino Transf (AST/SGOT) 17, Alanine Aminotransferase (ALT/SGPT) 13, Alkaline Phosphatase 50, Pro-B-Type Natriuretic Peptide 2045H, Total Protein 5.7L, Albumin 2.6L, Globulin 3.1, Albumin/Globulin Ratio 0.8L Current Medications Medications (Trade) Dose Ordered Sig/Escobar Route PRN Reason Start Time Stop Time Status Last Admin Dose Admin Acetaminophen (Tylenol) 650 mg Q4H PRN ORAL fever 06/22/19 19:00 07/22/19 18:59 Acetaminophen/ Hydrocodone Bitart ([place] 10/325) 1 tab Q4H PRN ORAL Severe Pain (Pain Scale 7-10) 06/23/19 16:15 06/30/19 16:14 06/25/19 22:54 Acetaminophen/ Hydrocodone Bitart ([place] 5/325) 1 tab Q4H PRN ORAL Moderate Pain (Pain Scale 4-6) 06/23/19 16:15 06/30/19 16:14 Amiodarone HCl (Cordarone) 200 mg BIOTEC ORAL 06/22/19 21:00 09/20/19 20:59 06/25/19 22:55 Dextrose (Dextrose 50%) 25 ml Q30M PRN IV Hypoglycemia 06/22/19 19:00 09/20/19 18:59 Dextrose (Dextrose 50%) 50 ml Q30M PRN IV Hypoglycemia 06/22/19 19:00 09/20/19 18:59 Escitalopram Oxalate (Lexapro) 10 mg DAILY ORAL 06/23/19 09:00 07/23/19 08:59 06/26/19 08:30 Hydroxyzine HCl (Atarax) 25 mg Q8HR PRN ORAL Itching 06/22/19 23:45 07/22/19 23:44 06/23/19 00:05 Metoprolol Tartrate (Lopressor) 50 mg EVERY 12 HOURS ORAL 06/22/19 21:00 09/20/19 20:59 06/26/19 08:30 Mirtazapine (Remeron) 7.5 mg BEDTIME ORAL 06/22/19 21:00 09/20/19 20:59 06/25/19 22:52 Ondansetron HCl (Zofran) 4 mg Q6H PRN IVP Nausea & Vomiting 06/22/19 19:00 07/22/19 18:59 Polyethylene Glycol (Miralax) 17 gm HSPRN PRN ORAL Constipation 06/22/19 19:00 07/22/19 18:59 Zolpidem Tartrate (Ambien) 5 mg HSPRN PRN ORAL Insomnia 06/22/19 19:00 06/29/19 18:59 Assessment/Plan Problems: (1) RLL pneumonia (2) Pleural effusion (3) Chronic anticoagulation (4) Ribs, multiple fractures (5) Atrial fibrillation (6) Pacemaker (7) COPD (chronic obstructive pulmonary disease) (8) KELVIN (obstructive sleep apnea) Assessment/Plan thoracentesis today because of RLL infiltrate, afebrile, COVID pending Cardio note reviewed and appreciated heart rate controlled prbc prn symptomatic treatment. Kelly Mejia MD June 26, 2019 13:06
--- NOTE | 2019-06-26 13:30 | NUR ---
NURSE NOTES: 1 u PRBC transfusing right now. [id number]. witnessed and cosigner by IRA Jacobs. VSS. patient is able to verbalize needs. explained the indications and signs/symptoms to look for. will cont to monitor. Addendum: 06/26/19 at 1450 by LEYDI MCCARTHY LVN NURSE NOTES: VS taken and stable. will cont to monitor.
--- NOTE | 2019-06-26 13:31 | Infectious Diseases Prog Note ---
Assessment/Plan Assessment/Plan Abx: None Assessment: Afebrile No leukocytosis -06/21 u/a wbc 15-20, nit neg, leuk+3; UCx <10 mixed urogenital contaminants Probable PNA- r/o COVID -06/23 CXR: Right basilar infiltrate with trace right effusion. s/p Mechanical fall Rib, abdominal pain- 2ry to R rib fractures and large R pleural effusion-? hemothorax -06/22 Chest US: Positive for right pleural effusion -06/[address]: 1. 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 No acute intracranial pathology is detected. CT C/abd/p:No evidence of acute injury to the abdominal or pelvic viscera. Somewhat limited study due to motion artifact. Cholelithiasis. Acute posterior medial lower right rib fractures. Moderate to large right pleural effusion, possibly containing an element of the hemothorax. Cardiomegaly.ASCVD. No pneumothoraces. Acute on chronic anemia -08/06/18 sp EGD: Normal upper endoscopy, status post biopsy. -path: mild chronic gastritis, no H. pylori identified pAfib hx of rib fractures Sinus node dysfunction s/p PPM (batter exchange July 2018) s/p KELI GERD polycythemia vera HLD MDD anemia NSTEMI s/p normal cardiac catheterization 2019 HTN KELVIN dCHF Plan: -Start empiric CEftriaxone -f/u cx -Monitor CBC/CMP, temperatures -plan for thoracentesis- send fluid cell count, LDH, protein and cx -aspiration precautions -COVID19 isolation and testing Thank you for consulting [facility]. Will contiue to follow along with you. Discussed with RN and Dr Mejia Subjective Allergies: Coded Allergies: No Known Allergies (Unverified , 04/24/18) Subjective afebrile at RA no leukocytosis denies cough Objective Vital Signs Last 24 Hour Vital Signs Date Time Temp Pulse Resp B/P (MAP) Pulse Ox O2 Delivery O2 Flow Rate FiO2 06/26/19 11:59 98.7 71 20 97/64 (75) 94 06/26/19 08:30 65 111/55 06/26/19 08:00 97.7 65 18 111/55 (73) 93 06/26/19 04:00 61 06/26/19 04:00 98.6 58 18 114/60 (78) 94 06/26/19 00:00 64 06/26/19 00:00 98.7 70 18 110/60 (77) 93 06/25/19 23:24 98.1 06/25/19 22:59 69 119/61 06/25/19 21:00 Room Air 06/25/19 20:00 99.2 68 18 119/61 (80) 92 06/25/19 20:00 84 06/25/19 16:16 98.1 60 19 108/58 (75) 95 06/25/19 15:39 60 Height (Feet): 5 Height (Inches): 0.00 Weight (Pounds): 140 Laboratory Tests Test 06/26/19 06:20 White Blood Count 4.8 K/UL (4.8-10.8) Red Blood Count 2.39 M/UL (4.20-5.40) L Hemoglobin 7.3 G/DL (12.0-16.0) L Hematocrit 21.5 % (37.0-47.0) L Mean Corpuscular Volume 90 FL (80-99) Mean Corpuscular Hemoglobin 30.6 PG (27.0-31.0) Mean Corpuscular Hemoglobin Concent 34.0 G/DL (32.0-36.0) Red Cell Distribution Width 20.8 % (11.6-14.8) H Platelet Count 170 K/UL (150-450) Mean Platelet Volume 8.0 FL (6.5-10.1) Neutrophils (%) (Auto) % (45.0-75.0) Lymphocytes (%) (Auto) % (20.0-45.0) Monocytes (%) (Auto) % (1.0-10.0) Eosinophils (%) (Auto) % (0.0-3.0) Basophils (%) (Auto) % (0.0-2.0) Differential Total Cells Counted 100 Neutrophils % (Manual) 80 % (45-75) H Lymphocytes % (Manual) 17 % (20-45) L Monocytes % (Manual) 3 % (1-10) Eosinophils % (Manual) 0 % (0-3) Basophils % (Manual) 0 % (0-2) Band Neutrophils 0 % (0-8) Platelet Estimate Adequate Platelet Morphology Normal Hypochromasia 1+ Anisocytosis 3+ Tear Drop Cells Occasional Ovalocytes 2+ Sodium Level 142 MMOL/L (136-145) Potassium Level 4.2 MMOL/L (3.5-5.1) Chloride Level 109 MMOL/L (98-107) H Carbon Dioxide Level 23 MMOL/L (21-32) Anion Gap 10 mmol/L (5-15) Blood Urea Nitrogen 24 mg/dL (7-18) H Creatinine 0.9 MG/DL (0.55-1.30) Estimat Glomerular Filtration Rate > 60 mL/min (>60) Glucose Level 85 MG/DL (74-106) Calcium Level 8.3 MG/DL (8.5-10.1) L Total Bilirubin 0.5 MG/DL (0.2-1.0) Aspartate Amino Transf (AST/SGOT) 17 U/L (15-37) Alanine Aminotransferase (ALT/SGPT) 13 U/L (12-78) Alkaline Phosphatase 50 U/L (46-116) Pro-B-Type Natriuretic Peptide 2045 pg/mL (0-125) H Total Protein 5.7 G/DL (6.4-8.2) L Albumin 2.6 G/DL (3.4-5.0) L Globulin 3.1 g/dL Albumin/Globulin Ratio 0.8 (1.0-2.7) L Current Medications Medications (Trade) Dose Ordered Sig/Escobar Route PRN Reason Start Time Stop Time Status Last Admin Dose Admin Acetaminophen (Tylenol) 650 mg Q4H PRN ORAL fever 06/22/19 19:00 07/22/19 18:59 Acetaminophen/ Hydrocodone Bitart ([place] 10/325) 1 tab Q4H PRN ORAL Severe Pain (Pain Scale 7-10) 06/23/19 16:15 06/30/19 16:14 06/25/19 22:54 Acetaminophen/ Hydrocodone Bitart ([place] 5/325) 1 tab Q4H PRN ORAL Moderate Pain (Pain Scale 4-6) 06/23/19 16:15 06/30/19 16:14 Amiodarone HCl (Cordarone) 200 mg BIOTEC ORAL 06/22/19 21:00 09/20/19 20:59 06/25/19 22:55 Dextrose (Dextrose 50%) 25 ml Q30M PRN IV Hypoglycemia 06/22/19 19:00 09/20/19 18:59 Dextrose (Dextrose 50%) 50 ml Q30M PRN IV Hypoglycemia 06/22/19 19:00 09/20/19 18:59 Escitalopram Oxalate (Lexapro) 10 mg DAILY ORAL 06/23/19 09:00 07/23/19 08:59 06/26/19 08:30 Hydroxyzine HCl (Atarax) 25 mg Q8HR PRN ORAL Itching 06/22/19 23:45 07/22/19 23:44 06/23/19 00:05 Metoprolol Tartrate (Lopressor) 50 mg EVERY 12 HOURS ORAL 06/22/19 21:00 09/20/19 20:59 06/26/19 08:30 Mirtazapine (Remeron) 7.5 mg BEDTIME ORAL 06/22/19 21:00 09/20/19 20:59 06/25/19 22:52 Ondansetron HCl (Zofran) 4 mg Q6H PRN IVP Nausea & Vomiting 06/22/19 19:00 07/22/19 18:59 Polyethylene Glycol (Miralax) 17 gm HSPRN PRN ORAL Constipation 06/22/19 19:00 07/22/19 18:59 Zolpidem Tartrate (Ambien) 5 mg HSPRN PRN ORAL Insomnia 06/22/19 19:00 06/29/19 18:59 Alejandrina Arrieta M.D. June 26, 2019 13:31
--- NOTE | 2019-06-26 15:58 | Internal Med Progress Note ---
Subjective Physician Name Antonio Adrian Attending Physician Antonio Adrian MD Current Medications Medications (Trade) Dose Ordered Sig/Escobar Route PRN Reason Start Time Stop Time Status Last Admin Dose Admin Acetaminophen (Tylenol) 650 mg Q4H PRN ORAL fever 06/22/19 19:00 07/22/19 18:59 Acetaminophen/ Hydrocodone Bitart ([place] 10/325) 1 tab Q4H PRN ORAL Severe Pain (Pain Scale 7-10) 06/23/19 16:15 06/30/19 16:14 06/25/19 22:54 Acetaminophen/ Hydrocodone Bitart ([place] 5/325) 1 tab Q4H PRN ORAL Moderate Pain (Pain Scale 4-6) 06/23/19 16:15 06/30/19 16:14 Amiodarone HCl (Cordarone) 200 mg BIOTEC ORAL 06/22/19 21:00 09/20/19 20:59 06/25/19 22:55 Ceftriaxone Sodium 1 gm/ Dextrose 55 ml @ 110 mls/hr Q24H IVPB 06/26/19 14:00 07/03/19 13:59 Dextrose (Dextrose 50%) 25 ml Q30M PRN IV Hypoglycemia 06/22/19 19:00 09/20/19 18:59 Dextrose (Dextrose 50%) 50 ml Q30M PRN IV Hypoglycemia 06/22/19 19:00 09/20/19 18:59 Escitalopram Oxalate (Lexapro) 10 mg DAILY ORAL 06/23/19 09:00 07/23/19 08:59 06/26/19 08:30 Hydroxyzine HCl (Atarax) 25 mg Q8HR PRN ORAL Itching 06/22/19 23:45 07/22/19 23:44 06/23/19 00:05 Metoprolol Tartrate (Lopressor) 50 mg EVERY 12 HOURS ORAL 06/22/19 21:00 09/20/19 20:59 06/26/19 08:30 Mirtazapine (Remeron) 7.5 mg BEDTIME ORAL 06/22/19 21:00 09/20/19 20:59 06/25/19 22:52 Ondansetron HCl (Zofran) 4 mg Q6H PRN IVP Nausea & Vomiting 06/22/19 19:00 07/22/19 18:59 Polyethylene Glycol (Miralax) 17 gm HSPRN PRN ORAL Constipation 06/22/19 19:00 07/22/19 18:59 Zolpidem Tartrate (Ambien) 5 mg HSPRN PRN ORAL Insomnia 06/22/19 19:00 06/29/19 18:59 Allergies: Coded Allergies: No Known Allergies (Unverified , 04/24/18) Subjective Awake, alert, responsive, complain about weakness, denies any shortness of breath, complain about right-sided chest wall pain, hemoglobin: 7.3. Objective Last Vital Signs Date Time Temp Pulse Resp B/P (MAP) Pulse Ox O2 Delivery O2 Flow Rate FiO2 06/26/19 11:59 98.7 71 20 97/64 (75) 94 06/26/19 09:00 Room Air Laboratory Tests Test 06/26/19 06:20 White Blood Count 4.8 K/UL (4.8-10.8) Red Blood Count 2.39 M/UL (4.20-5.40) L Hemoglobin 7.3 G/DL (12.0-16.0) L Hematocrit 21.5 % (37.0-47.0) L Mean Corpuscular Volume 90 FL (80-99) Mean Corpuscular Hemoglobin 30.6 PG (27.0-31.0) Mean Corpuscular Hemoglobin Concent 34.0 G/DL (32.0-36.0) Red Cell Distribution Width 20.8 % (11.6-14.8) H Platelet Count 170 K/UL (150-450) Mean Platelet Volume 8.0 FL (6.5-10.1) Neutrophils (%) (Auto) % (45.0-75.0) Lymphocytes (%) (Auto) % (20.0-45.0) Monocytes (%) (Auto) % (1.0-10.0) Eosinophils (%) (Auto) % (0.0-3.0) Basophils (%) (Auto) % (0.0-2.0) Differential Total Cells Counted 100 Neutrophils % (Manual) 80 % (45-75) H Lymphocytes % (Manual) 17 % (20-45) L Monocytes % (Manual) 3 % (1-10) Eosinophils % (Manual) 0 % (0-3) Basophils % (Manual) 0 % (0-2) Band Neutrophils 0 % (0-8) Platelet Estimate Adequate Platelet Morphology Normal Hypochromasia 1+ Anisocytosis 3+ Tear Drop Cells Occasional Ovalocytes 2+ Sodium Level 142 MMOL/L (136-145) Potassium Level 4.2 MMOL/L (3.5-5.1) Chloride Level 109 MMOL/L (98-107) H Carbon Dioxide Level 23 MMOL/L (21-32) Anion Gap 10 mmol/L (5-15) Blood Urea Nitrogen 24 mg/dL (7-18) H Creatinine 0.9 MG/DL (0.55-1.30) Estimat Glomerular Filtration Rate > 60 mL/min (>60) Glucose Level 85 MG/DL (74-106) Calcium Level 8.3 MG/DL (8.5-10.1) L Total Bilirubin 0.5 MG/DL (0.2-1.0) Aspartate Amino Transf (AST/SGOT) 17 U/L (15-37) Alanine Aminotransferase (ALT/SGPT) 13 U/L (12-78) Alkaline Phosphatase 50 U/L (46-116) Pro-B-Type Natriuretic Peptide 2045 pg/mL (0-125) H Total Protein 5.7 G/DL (6.4-8.2) L Albumin 2.6 G/DL (3.4-5.0) L Globulin 3.1 g/dL Albumin/Globulin Ratio 0.8 (1.0-2.7) L Intake and Output 06/25/19 06/26/19 19:00 07:00 Intake Total 900 ml Balance 900 ml Intake Oral 900 ml # Voids 3 3 Objective General: No acute distress, awake and alert HEENT: NCAT, sclera anicteric, PERRL, EOMI. Neck: Supple, no significant jugular venous distention, Lungs: fair inspiratory effort, decreased air at the bases, right chest wall ecchymosis and tender over the rib cages, no Wheeze or Rales. Heart: Regular rate and rhythm, normal S1/S2, no murmurs, +PPM. Abdomen: soft, nontender, nondistended. Normoactive bowel sounds. / Rectal: Refused and deferred. Extremities: No Cyanosis , clubbing or edema. Neuro: A&O x 3, Able to move all extremities, using cane for ambulation Skin: warm, no rashes or lesions Psych: Mood is depressed. Assessment/Plan Assessment/Plan ASSESSMENT: This is an 79-year-old female. 1. Right side chest wall pain most likely due to the multiple ribs fracture. 2. Mechanical fall 3. Severe anemia. 4. Atrial fibrillation. 5. Polycythemia vera. 6. Hypertension. 7. Obstructive sleep apnea. 8. Coronary artery disease. 9. Hypercholesterolemia. 10. Congestive heart failure; FPG=[id number] 11. Right pleural effusion 12. Sick sinus syndrome status post a pacemaker. TREATMENT: 1. Chest pain. This may be secondary to fall injury. Initial troponin level was negative. Repeat troponin levels are pending. A Cardiology consultation has been obtained with Dr. Mainor Araujo. 2. Severe anemia. The patient has been typed and crossed for 2 units of packed RBCs. 3. Atrial fibrillation. As above, a Cardiology consultation has been obtained with Dr. Mainor Araujo. 4. Polycythemia vera. The patient is currently anemic. 5. Hypertension. Continue metoprolol as above. 6. Obstructive sleep apnea. 7. Coronary artery disease, status post myocardial infarction. As above, a Cardiology consultation has been obtained with Dr. Mainor Araujo. 8. Hypercholesteremia. 9. Congestive heart failure. 10. Pacemaker in situ. Pacemaker check is pending. 11. Right thoracentesis today. 12. CODE STATUS is full code. 13. Broad spectrum antibiotics with Rocephin IV. 14. Monitor cultures and laboratory. 15. DVT prophylaxis: SCD. 16. OOB to chair, PT Mobility Antonio Adrian MD June 26, 2019 15:58
[2019-06-26 16:00] VITALS: BP 111/61
[2019-06-26] MEDS: cefTRIAXone 1 GM in D5W 55 ML IVPB SCH (16:00)
--- NOTE | 2019-06-26 16:11 | Diagnostic Imaging Report ---
Indication: Pleural effusion chest pain Technique: Focused Limited ultrasound scanning of the right chest. Comparison: None Findings: Focused Limited ultrasound scanning of the right chest was performed demonstrating only a small pleural effusion. Pleural effusion appears decreased compared to the prior exam. No suitable pocket for thoracentesis was identified. IMPRESSION: Small right pleural effusion, decreased compared to the prior exam. No significant pocket for thoracentesis.
--- NOTE | 2019-06-26 16:25 | NUR ---
DISCHARGE PLANNING PATIENT IS FROM HOME THORACENTESIS PENDING HGB-7.3...TRANSFUSE 1 UNIT PRBC'S CONTINUE SYMPTOMATIC TREATMENT
--- NOTE | 2019-06-26 16:30 | Diagnostic Imaging Report ---
Procedure: XRAY Chest 1v Reason for study: Reason For Exam: DYSPNEA Comparison films: 04/27/2019. FINDINGS: Pacer remains in place. Vascularity is normal. There is right basilar infiltrate. Cardiac and mediastinal silhouette are within normal limits. Trace right effusion noted. The bony thorax appear unremarkable. IMPRESSION: Right basilar infiltrate with trace right effusion.
--- NOTE | 2019-06-26 16:31 | Diagnostic Imaging Report ---
Procedure: XRAY Chest 1v Reason for study: Reason For Exam: DYSPNEA Comparison films: 06/24/2019. FINDINGS: A single one view chest is obtained. Vascularity is normal. Right basilar infiltrate and effusion unchanged. Mild cardiomegaly unchanged. Left CP angle is sharp. The bony thorax appear unremarkable. IMPRESSION: NO SIGNIFICANT CHANGE COMPARED TO PREVIOUS EXAM.
--- NOTE | 2019-06-26 16:35 | NUR ---
NURSE NOTES: BLOOD TRANSFUSION COMPLETED. VS TAKEN AND STABLE. TEMP 97.8, 84, 111/75. NO DISTRESS OR SOB NOTED. NO ADVERSE REACTION OBSERVED. WILL CONT TO MONITOR.
--- NOTE | 2019-06-26 16:35 | NUR ---
NURSE NOTES: SENT COVID SWAB TO THE LAB. WILL CONT TO MONITOR.
--- NOTE | 2019-06-26 18:45 | Cardiology Progress Note ---
Assessment/Plan Assessment/Plan 1. Paroxysmal episodes of atrial fibrillation. 2. Sick sinus syndrome status post pacemaker implantation with generator replacement in July of 2018. 3. Profound anemia. 4. History of polycythemia. 5. Probable urinary tract infection. 6. Fall. 7. Reported history of polycythemia vera. 8. Sleep apnea history. 9. Rib fracture 10 hemothorax hgb dropped got another unit of prbc not enough fluid to remove by thoracentesis apparently watch hgb is of anticoagulation Subjective Cardiovascular: Denies: chest pain, lightheadedness Respiratory: Denies: cough, shortness of breath Gastrointestinal/Abdominal: Denies: abdominal pain Objective Last 24 Hour Vital Signs Date Time Temp Pulse Resp B/P (MAP) Pulse Ox O2 Delivery O2 Flow Rate FiO2 06/26/19 16:00 97.8 61 19 111/61 (78) 94 06/26/19 11:59 98.7 71 20 97/64 (75) 94 06/26/19 09:12 66 06/26/19 09:00 Room Air 06/26/19 08:30 65 111/55 06/26/19 08:00 97.7 65 18 111/55 (73) 93 06/26/19 07:49 62 06/26/19 04:00 61 06/26/19 04:00 98.6 58 18 114/60 (78) 94 06/26/19 00:00 64 06/26/19 00:00 98.7 70 18 110/60 (77) 93 06/25/19 23:24 98.1 06/25/19 22:59 69 119/61 06/25/19 21:00 Room Air 06/25/19 20:00 99.2 68 18 119/61 (80) 92 06/25/19 20:00 84 General Appearance: no apparent distress, alert, patient on isolation, isolation precautions Intake and Output 06/25/19 06/26/19 19:00 07:00 Intake Total 900 ml Balance 900 ml Intake Oral 900 ml # Voids 3 3 Laboratory Tests Test 06/26/19 06:20 White Blood Count 4.8 K/UL (4.8-10.8) Red Blood Count 2.39 M/UL (4.20-5.40) L Hemoglobin 7.3 G/DL (12.0-16.0) L Hematocrit 21.5 % (37.0-47.0) L Mean Corpuscular Volume 90 FL (80-99) Mean Corpuscular Hemoglobin 30.6 PG (27.0-31.0) Mean Corpuscular Hemoglobin Concent 34.0 G/DL (32.0-36.0) Red Cell Distribution Width 20.8 % (11.6-14.8) H Platelet Count 170 K/UL (150-450) Mean Platelet Volume 8.0 FL (6.5-10.1) Neutrophils (%) (Auto) % (45.0-75.0) Lymphocytes (%) (Auto) % (20.0-45.0) Monocytes (%) (Auto) % (1.0-10.0) Eosinophils (%) (Auto) % (0.0-3.0) Basophils (%) (Auto) % (0.0-2.0) Differential Total Cells Counted 100 Neutrophils % (Manual) 80 % (45-75) H Lymphocytes % (Manual) 17 % (20-45) L Monocytes % (Manual) 3 % (1-10) Eosinophils % (Manual) 0 % (0-3) Basophils % (Manual) 0 % (0-2) Band Neutrophils 0 % (0-8) Platelet Estimate Adequate Platelet Morphology Normal Hypochromasia 1+ Anisocytosis 3+ Tear Drop Cells Occasional Ovalocytes 2+ Sodium Level 142 MMOL/L (136-145) Potassium Level 4.2 MMOL/L (3.5-5.1) Chloride Level 109 MMOL/L (98-107) H Carbon Dioxide Level 23 MMOL/L (21-32) Anion Gap 10 mmol/L (5-15) Blood Urea Nitrogen 24 mg/dL (7-18) H Creatinine 0.9 MG/DL (0.55-1.30) Estimat Glomerular Filtration Rate > 60 mL/min (>60) Glucose Level 85 MG/DL (74-106) Calcium Level 8.3 MG/DL (8.5-10.1) L Total Bilirubin 0.5 MG/DL (0.2-1.0) Aspartate Amino Transf (AST/SGOT) 17 U/L (15-37) Alanine Aminotransferase (ALT/SGPT) 13 U/L (12-78) Alkaline Phosphatase 50 U/L (46-116) Pro-B-Type Natriuretic Peptide 2045 pg/mL (0-125) H Total Protein 5.7 G/DL (6.4-8.2) L Albumin 2.6 G/DL (3.4-5.0) L Globulin 3.1 g/dL Albumin/Globulin Ratio 0.8 (1.0-2.7) L Mainor Araujo MD June 26, 2019 18:45
--- NOTE | 2019-06-26 19:12 | NUR ---
HAND-OFF: Report given to Candi.
[2019-06-26 20:00] VITALS: BP 113/62
--- NOTE | 2019-06-26 21:30 | Consultation ---
DATE OF CONSULTATION: 06/26/2019 SURGEON: Ezequiel Malik MD., specialty in Thoracic Surgery. REFERRING PHYSICIAN: Kelly Mejia MD. HISTORY OF PRESENT ILLNESS: The patient is an 79-year-old female status post fall on the right side and presented to the emergency room at [facility] complaining of right-sided pleuritic chest pain. Workup including a chest CT scan demonstrated multiple rib fracture associated with large pleural effusion suggestive of hemothorax. Thoracic surgeon was then consulted for further evaluation. PAST MEDICAL HISTORY: 1. Atrial fibrillation. 2. Polycythemia vera. 3. COPD. 4. Sleep apnea. 5. Coronary artery disease. 6. Hypercholesterolemia. 7. CHF. PAST SURGICAL HISTORY: 1. Notable for pacemaker implantation. 2. Total abdominal hysterectomy. MEDICATIONS: Reviewed. ALLERGIES: The patient has no known drug allergies. FAMILY AND SOCIAL HISTORY: Noncontributory. PHYSICAL EXAMINATION: GENERAL: She is noted to be afebrile. VITAL SIGNS: Within normal limits. CARDIAC: Regular rate and rhythm. No gallops. No murmurs. RESPIRATORY: Clear to auscultation on the left decreased and crackles on the right. There is some palpated localized tenderness over the right lateral chest wall. ABDOMEN: Soft, nondistended, nontender with normoactive bowel sounds. EXTREMITIES: No evidence of cyanosis, clubbing, or edema. LABORATORY AND DIAGNOSTIC DATA: Laboratory studies performed on 06/26/2019 WBC of 4.8, hemoglobin 7.3, hematocrit 23, platelet count of 170. Sodium is 142, potassium 4.2, chloride 109, bicarb is 23, BUN is 10, creatinine is 0.9, and glucose is 60. PT is 12, PTT 30, INR is 1.2. Chest CT scan was obtained on 06/22/2019 which showed moderate right large pleural effusion. There is no pneumothorax identified. There is a 1.5 cm nodule localized in the posterior right lower lobe. In addition, there are acute fractures of the right 9, 10, 11, 12 ribs. ASSESSMENT AND PLAN: This is a 79-year-old female status fall sustaining right-sided multiple rib fracture associated with right pleural effusion suggestive of hemothorax. The patient was evaluated at bedside. After reviewing her clinical database, we recommend holding the anticoagulation at least 5 days. Furthermore, a Cardiology evaluation should be obtained for possible preoperative clearance. The patient will need right thoracentesis. If the procedure is unsuccessful, the patient may require right video-assisted thoracoscopic surgery for washout. I want to thank you for referring this patient to my attention. If there are any questions in regard to this patient's clinical care, please do not hesitate to contact me. Kraft M.D. DR: Pérez JOB#: [id number] CC:
[2019-06-26] MEDS: Amiodarone 200mg tab ORAL SCH (22:20)
[2019-06-27] VITALS (7 sets, daily range): BP systolic 116–149; BP diastolic 54–77
--- NOTE | 2019-06-27 07:09 | Pulmonology Progress Note ---
Subjective ROS Limited/Unobtainable: No Interval Events: no new complains Allergies: Coded Allergies: No Known Allergies (Unverified , 04/24/18) Subjective afebrile, no leukocytosis no signs of resp distress Hgb down to 7.3 seen and evaluated by CT surgeon Objective Last 24 Hour Vital Signs Date Time Temp Pulse Resp B/P (MAP) Pulse Ox O2 Delivery O2 Flow Rate FiO2 06/27/19 04:00 69 06/27/19 04:00 98.0 94 18 116/54 (74) 98 06/27/19 00:00 98.0 62 16 117/57 (77) 98 06/27/19 00:00 64 06/26/19 22:21 62 113/62 06/26/19 21:00 Room Air 06/26/19 20:00 98.1 62 16 113/62 (79) 93 06/26/19 20:00 60 06/26/19 16:00 97.8 61 19 111/61 (78) 94 06/26/19 11:59 98.7 71 20 97/64 (75) 94 06/26/19 09:12 66 06/26/19 09:00 Room Air 06/26/19 08:30 65 111/55 06/26/19 08:00 97.7 65 18 111/55 (73) 93 06/26/19 07:49 62 Intake and Output 06/26/19 06/27/19 19:00 07:00 Intake Total 360 ml Balance 360 ml IV Total 110 ml Blood Product 250 ml # Voids 2 4 General Appearance: no acute distress, other - elderly female in NAD HEENT: normocephalic, atraumatic, anicteric Respiratory: decreased breath sounds Cardiovascular: normal rate Abdomen: normal bowel sounds, soft, non tender Extremities: no edema Neurologic: abnormal gait, alert, responsive Musculoskeletal: atrophy Current Medications Medications (Trade) Dose Ordered Sig/Escobar Route PRN Reason Start Time Stop Time Status Last Admin Dose Admin Acetaminophen (Tylenol) 650 mg Q4H PRN ORAL fever 06/22/19 19:00 07/22/19 18:59 Acetaminophen/ Hydrocodone Bitart ([place] 10/325) 1 tab Q4H PRN ORAL Severe Pain (Pain Scale 7-10) 06/23/19 16:15 06/30/19 16:14 06/25/19 22:54 Acetaminophen/ Hydrocodone Bitart ([place] 5/325) 1 tab Q4H PRN ORAL Moderate Pain (Pain Scale 4-6) 06/23/19 16:15 06/30/19 16:14 Amiodarone HCl (Cordarone) 200 mg BIOTEC ORAL 06/22/19 21:00 09/20/19 20:59 06/26/19 22:20 Ceftriaxone Sodium 1 gm/ Dextrose 55 ml @ 110 mls/hr Q24H IVPB 06/26/19 14:00 07/03/19 13:59 06/26/19 16:00 Dextrose (Dextrose 50%) 25 ml Q30M PRN IV Hypoglycemia 06/22/19 19:00 09/20/19 18:59 Dextrose (Dextrose 50%) 50 ml Q30M PRN IV Hypoglycemia 06/22/19 19:00 09/20/19 18:59 Escitalopram Oxalate (Lexapro) 10 mg DAILY ORAL 06/23/19 09:00 07/23/19 08:59 06/26/19 08:30 Hydroxyzine HCl (Atarax) 25 mg Q8HR PRN ORAL Itching 06/22/19 23:45 07/22/19 23:44 06/23/19 00:05 Metoprolol Tartrate (Lopressor) 50 mg EVERY 12 HOURS ORAL 06/22/19 21:00 09/20/19 20:59 06/26/19 22:21 Mirtazapine (Remeron) 7.5 mg BEDTIME ORAL 06/22/19 21:00 09/20/19 20:59 06/26/19 22:20 Ondansetron HCl (Zofran) 4 mg Q6H PRN IVP Nausea & Vomiting 06/22/19 19:00 07/22/19 18:59 Polyethylene Glycol (Miralax) 17 gm HSPRN PRN ORAL Constipation 06/22/19 19:00 07/22/19 18:59 Zolpidem Tartrate (Ambien) 5 mg HSPRN PRN ORAL Insomnia 06/22/19 19:00 06/29/19 18:59 Assessment/Plan Assessment/Plan ASSESSMENT s/p mechanical fall Right pleural effusion , moderate to large with probable associated hemothorax Acute multiple rib fractures COPD History of KELVIN PAF CHF with diastolic dysfunction SSS, status post pacemaker Profound anemia, s/p 3 u PRBC Hx of polycythemia vera Severe pulmonary HTN PLAN OF CARE tele O2 HHN PRN CT head - no acute IC pathology CT C/A/P noted ; US chest noted, m to l R pleural effusion 05/26 US chest Small right pleural effusion, decreased compared to the prior exam. No significant pocket for thoracentesis. off anticoagulation , continue amiodarone and BB cardio follows seen and evaluated by CT surgeon no thoracentesis performed, given small amount may need VATS for washout. ECHO with pEF and RVSP of 71 c/w severe pulm HTN s/p 3 u PRBC UCX + mixed urogenital contaminant on empiric Ceftriaxone per ID recs pain management supportive care fall precaution case discussed and evaluated by supervising physician Cait Melchor NP June 27, 2019 07:09
--- NOTE | 2019-06-27 07:30 | NUR ---
NURSE NOTES: Received report from IRA Christopher. Pt A/O x4, [place] Islander speaking. Pt denies any pain at the moment. No s/sx of acute distress, breathing even and unlabored in RA. IV sites patent and asymptomatic. Bed on lowest position, call light within reach. Will continue plan of care.
--- NOTE | 2019-06-27 08:12 | NUR ---
HAND-OFF: Report given to IRA Weaver
[2019-06-27] MEDS: Metoprolol Tartrate 50mg tab ORAL SCH ×2 (08:46→20:47)
[2019-06-27 09:04] LABS: INR 1.1 (0.9-1.1)
[2019-06-27 09:34] LABS: BASOPHILS % (AUTO) 2.3 % (0.0-2.0); EOSINOPHILS % (AUTO) 0.7 % (0.0-3.0); HEMATOCRIT 26.5 % (37.0-47.0); HEMOGLOBIN 8.9 G/DL (12.0-16.0); LYMPHOCYTES % (AUTO) 13.5 % (20.0-45.0); MEAN CORPUSCULAR VOLUME 91 FL (80-99); MONOCYTES % (AUTO) 3.6 % (1.0-10.0); NEUTROPHILS % (AUTO) 79.9 % (45.0-75.0); PLATELET COUNT 164 K/UL (150-450); RED CELL DISTRIBUTION WIDTH 18.4 % (11.6-14.8)
[2019-06-27 09:45] LABS: ALANINE AMINOTRANSFERASE 13 U/L (12-78); ALBUMIN 2.8 G/DL (3.4-5.0); ALBUMIN/GLOBULIN RATIO 0.8 (1.0-2.7); ALKALINE PHOSPHATASE 49 U/L (46-116); ANION GAP 7 mmol/L (5-15); ASPARTATE AMINO TRANSFERASE 17 U/L (15-37); BILIRUBIN,TOTAL 0.6 MG/DL (0.2-1.0); BLOOD UREA NITROGEN 19 mg/dL (7-18); CALCIUM 8.2 MG/DL (8.5-10.1); CARBON DIOXIDE 24 MMOL/L (21-32); CHLORIDE 107 MMOL/L (98-107); CREATININE 0.8 MG/DL (0.55-1.30); POTASSIUM 4.3 MMOL/L (3.5-5.1); SODIUM 138 MMOL/L (136-145)
--- NOTE | 2019-06-27 10:14 | Infectious Diseases Prog Note ---
Assessment/Plan Assessment/Plan Abx: None Assessment: Afebrile No leukocytosis -06/21 u/a wbc 15-20, nit neg, leuk+3; UCx <10 mixed urogenital contaminants Probable PNA- r/o COVID -06/23 CXR: Right basilar infiltrate with trace right effusion. s/p Mechanical fall Rib, abdominal pain- 2ry to R rib fractures and large R pleural effusion-? hemothorax -06/22 Chest US: Positive for right pleural effusion -06/[address]: 1. 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 No acute intracranial pathology is detected. CT C/abd/p:No evidence of acute injury to the abdominal or pelvic viscera. Somewhat limited study due to motion artifact. Cholelithiasis. Acute posterior medial lower right rib fractures. Moderate to large right pleural effusion, possibly containing an element of the hemothorax. Cardiomegaly.ASCVD. No pneumothoraces. Acute on chronic anemia -08/06/18 sp EGD: Normal upper endoscopy, status post biopsy. -path: mild chronic gastritis, no H. pylori identified pAfib hx of rib fractures Sinus node dysfunction s/p PPM (batter exchange July 2018) s/p KELI GERD polycythemia vera HLD MDD anemia NSTEMI s/p normal cardiac catheterization 2019 HTN KELVIN dCHF Plan: -Start empiric Ceftriaxone #2/3-5 -f/u cx -Monitor CBC/CMP, temperatures -plan for thoracentesis- send fluid cell count, LDH, protein and cx -aspiration precautions -COVID19 isolation and testing Thank you for consulting [facility]. Will contiue to follow along with you. Discussed with RN and Dr Mejia Subjective Allergies: Coded Allergies: No Known Allergies (Unverified , 04/24/18) Subjective Afebrile No Leukocytosis Objective Vital Signs Last 24 Hour Vital Signs Date Time Temp Pulse Resp B/P (MAP) Pulse Ox O2 Delivery O2 Flow Rate FiO2 06/27/19 08:46 61 133/65 06/27/19 08:00 98.0 61 18 133/65 (87) 95 06/27/19 04:00 69 06/27/19 04:00 98.0 94 18 116/54 (74) 98 06/27/19 00:00 98.0 62 16 117/57 (77) 98 06/27/19 00:00 64 06/26/19 22:21 62 113/62 06/26/19 21:00 Room Air 06/26/19 20:00 98.1 62 16 113/62 (79) 93 06/26/19 20:00 60 06/26/19 16:00 97.8 61 19 111/61 (78) 94 06/26/19 11:59 98.7 71 20 97/64 (75) 94 Height (Feet): 5 Height (Inches): 0.00 Weight (Pounds): 140 Objective GENERAL: NAD HEENT: Eyes, pupils are equal and responsive to light and accommodation. Extraocular movements are intact. CHEST: Lungs are clear to auscultation bilaterally without wheezes or rales. CARDIOVASCULAR: Regular rate. S1 and S2 ABDOMEN: Soft, nontender, and nondistended. Laboratory Tests Test 06/27/19 07:55 White Blood Count 5.0 K/UL (4.8-10.8) Red Blood Count 2.90 M/UL (4.20-5.40) L Hemoglobin 8.9 G/DL (12.0-16.0) L Hematocrit 26.5 % (37.0-47.0) L Mean Corpuscular Volume 91 FL (80-99) Mean Corpuscular Hemoglobin 30.7 PG (27.0-31.0) Mean Corpuscular Hemoglobin Concent 33.6 G/DL (32.0-36.0) Red Cell Distribution Width 18.4 % (11.6-14.8) H Platelet Count 164 K/UL (150-450) Mean Platelet Volume 8.6 FL (6.5-10.1) Neutrophils (%) (Auto) 79.9 % (45.0-75.0) H Lymphocytes (%) (Auto) 13.5 % (20.0-45.0) L Monocytes (%) (Auto) 3.6 % (1.0-10.0) Eosinophils (%) (Auto) 0.7 % (0.0-3.0) Basophils (%) (Auto) 2.3 % (0.0-2.0) H Prothrombin Time 12.1 SEC (9.30-11.50) H Prothromb Time International Ratio 1.1 (0.9-1.1) Activated Partial Thromboplast Time 32 SEC (23-33) Sodium Level 138 MMOL/L (136-145) Potassium Level 4.3 MMOL/L (3.5-5.1) Chloride Level 107 MMOL/L (98-107) Carbon Dioxide Level 24 MMOL/L (21-32) Anion Gap 7 mmol/L (5-15) Blood Urea Nitrogen 19 mg/dL (7-18) H Creatinine 0.8 MG/DL (0.55-1.30) Estimat Glomerular Filtration Rate > 60 mL/min (>60) Glucose Level 104 MG/DL (74-106) Calcium Level 8.2 MG/DL (8.5-10.1) L Total Bilirubin 0.6 MG/DL (0.2-1.0) Aspartate Amino Transf (AST/SGOT) 17 U/L (15-37) Alanine Aminotransferase (ALT/SGPT) 13 U/L (12-78) Alkaline Phosphatase 49 U/L (46-116) Lactate Dehydrogenase 586 U/L (81-234) H Pro-B-Type Natriuretic Peptide 2598 pg/mL (0-125) H Total Protein 6.2 G/DL (6.4-8.2) L Albumin 2.8 G/DL (3.4-5.0) L Globulin 3.4 g/dL Albumin/Globulin Ratio 0.8 (1.0-2.7) L Current Medications Medications (Trade) Dose Ordered Sig/Escobar Route PRN Reason Start Time Stop Time Status Last Admin Dose Admin Acetaminophen (Tylenol) 650 mg Q4H PRN ORAL fever 06/22/19 19:00 07/22/19 18:59 Acetaminophen/ Hydrocodone Bitart ([place] 10/325) 1 tab Q4H PRN ORAL Severe Pain (Pain Scale 7-10) 06/23/19 16:15 06/30/19 16:14 06/25/19 22:54 Acetaminophen/ Hydrocodone Bitart ([place] 5/325) 1 tab Q4H PRN ORAL Moderate Pain (Pain Scale 4-6) 06/23/19 16:15 06/30/19 16:14 Amiodarone HCl (Cordarone) 200 mg BIOTEC ORAL 06/22/19 21:00 09/20/19 20:59 06/26/19 22:20 Ceftriaxone Sodium 1 gm/ Dextrose 55 ml @ 110 mls/hr Q24H IVPB 06/26/19 14:00 07/03/19 13:59 06/26/19 16:00 Dextrose (Dextrose 50%) 25 ml Q30M PRN IV Hypoglycemia 06/22/19 19:00 09/20/19 18:59 Dextrose (Dextrose 50%) 50 ml Q30M PRN IV Hypoglycemia 06/22/19 19:00 09/20/19 18:59 Escitalopram Oxalate (Lexapro) 10 mg DAILY ORAL 06/23/19 09:00 07/23/19 08:59 06/27/19 08:46 Hydroxyzine HCl (Atarax) 25 mg Q8HR PRN ORAL Itching 06/22/19 23:45 07/22/19 23:44 06/23/19 00:05 Metoprolol Tartrate (Lopressor) 50 mg EVERY 12 HOURS ORAL 06/22/19 21:00 09/20/19 20:59 06/27/19 08:46 Mirtazapine (Remeron) 7.5 mg BEDTIME ORAL 06/22/19 21:00 09/20/19 20:59 06/26/19 22:20 Ondansetron HCl (Zofran) 4 mg Q6H PRN IVP Nausea & Vomiting 06/22/19 19:00 07/22/19 18:59 Polyethylene Glycol (Miralax) 17 gm HSPRN PRN ORAL Constipation 06/22/19 19:00 07/22/19 18:59 Zolpidem Tartrate (Ambien) 5 mg HSPRN PRN ORAL Insomnia 06/22/19 19:00 06/29/19 18:59 Petey Castillo MD June 27, 2019 10:14
--- NOTE | 2019-06-27 13:29 | Diagnostic Imaging Report ---
EXAM: XR Chest, 1 View CLINICAL HISTORY: DYSPNEA TECHNIQUE: Frontal view of the chest. COMPARISON: Chest x-rays dated 06/26/19, 06/26/19, CT chest dated 06/22/19 FINDINGS: Lungs: Pulmonary vascular congestion, similar to mildly increased from the prior exam. Subtle infiltrate in the right lung base, unchanged. Pleural space: No significant change in the small right pleural effusion. Heart: Unremarkable. No cardiomegaly. Mediastinum: Unremarkable. Bones/joints: Degenerative changes throughout the visualized spine and shoulder joints. Vasculature: Atherosclerotic calcifications within the aortic arch. Tubes, lines and devices: Cardiac pacer in the left chest wall with the lead tips in the right atrium and right ventricle regions. Telemetry leads overlie the thorax. IMPRESSION: 1. Pulmonary vascular congestion, similar to mildly increased from the prior exam. 2. No significant change in the small right pleural effusion or subtle infiltrate in the right lung base.
--- NOTE | 2019-06-27 13:56 | Internal Med Progress Note ---
Subjective Physician Name Antonio Adrian Attending Physician Antonio Adrian MD Current Medications Medications (Trade) Dose Ordered Sig/Escobar Route PRN Reason Start Time Stop Time Status Last Admin Dose Admin Acetaminophen (Tylenol) 650 mg Q4H PRN ORAL fever 06/22/19 19:00 07/22/19 18:59 Acetaminophen/ Hydrocodone Bitart ([place] 10/325) 1 tab Q4H PRN ORAL Severe Pain (Pain Scale 7-10) 06/23/19 16:15 06/30/19 16:14 06/25/19 22:54 Acetaminophen/ Hydrocodone Bitart ([place] 5/325) 1 tab Q4H PRN ORAL Moderate Pain (Pain Scale 4-6) 06/23/19 16:15 06/30/19 16:14 Amiodarone HCl (Cordarone) 200 mg BIOTEC ORAL 06/22/19 21:00 09/20/19 20:59 06/26/19 22:20 Ceftriaxone Sodium 1 gm/ Dextrose 55 ml @ 110 mls/hr Q24H IVPB 06/26/19 14:00 07/03/19 13:59 06/26/19 16:00 Dextrose (Dextrose 50%) 25 ml Q30M PRN IV Hypoglycemia 06/22/19 19:00 09/20/19 18:59 Dextrose (Dextrose 50%) 50 ml Q30M PRN IV Hypoglycemia 06/22/19 19:00 09/20/19 18:59 Escitalopram Oxalate (Lexapro) 10 mg DAILY ORAL 06/23/19 09:00 07/23/19 08:59 06/27/19 08:46 Hydroxyzine HCl (Atarax) 25 mg Q8HR PRN ORAL Itching 06/22/19 23:45 07/22/19 23:44 06/23/19 00:05 Metoprolol Tartrate (Lopressor) 50 mg EVERY 12 HOURS ORAL 06/22/19 21:00 09/20/19 20:59 06/27/19 08:46 Mirtazapine (Remeron) 7.5 mg BEDTIME ORAL 06/22/19 21:00 09/20/19 20:59 06/26/19 22:20 Ondansetron HCl (Zofran) 4 mg Q6H PRN IVP Nausea & Vomiting 06/22/19 19:00 07/22/19 18:59 Polyethylene Glycol (Miralax) 17 gm HSPRN PRN ORAL Constipation 06/22/19 19:00 07/22/19 18:59 Zolpidem Tartrate (Ambien) 5 mg HSPRN PRN ORAL Insomnia 06/22/19 19:00 06/29/19 18:59 Allergies: Coded Allergies: No Known Allergies (Unverified , 04/24/18) Subjective Awake, alert, responsive, complain about weakness, denies any shortness of breath, complain about right-sided chest wall pain, hemoglobin: 8.9 post transfusion, feeling better today. Objective Last Vital Signs Date Time Temp Pulse Resp B/P (MAP) Pulse Ox O2 Delivery O2 Flow Rate FiO2 06/27/19 12:00 97.6 60 20 132/69 (90) 96 06/27/19 09:00 Room Air Laboratory Tests Test 06/27/19 07:55 White Blood Count 5.0 K/UL (4.8-10.8) Red Blood Count 2.90 M/UL (4.20-5.40) L Hemoglobin 8.9 G/DL (12.0-16.0) L Hematocrit 26.5 % (37.0-47.0) L Mean Corpuscular Volume 91 FL (80-99) Mean Corpuscular Hemoglobin 30.7 PG (27.0-31.0) Mean Corpuscular Hemoglobin Concent 33.6 G/DL (32.0-36.0) Red Cell Distribution Width 18.4 % (11.6-14.8) H Platelet Count 164 K/UL (150-450) Mean Platelet Volume 8.6 FL (6.5-10.1) Neutrophils (%) (Auto) 79.9 % (45.0-75.0) H Lymphocytes (%) (Auto) 13.5 % (20.0-45.0) L Monocytes (%) (Auto) 3.6 % (1.0-10.0) Eosinophils (%) (Auto) 0.7 % (0.0-3.0) Basophils (%) (Auto) 2.3 % (0.0-2.0) H Prothrombin Time 12.1 SEC (9.30-11.50) H Prothromb Time International Ratio 1.1 (0.9-1.1) Activated Partial Thromboplast Time 32 SEC (23-33) Sodium Level 138 MMOL/L (136-145) Potassium Level 4.3 MMOL/L (3.5-5.1) Chloride Level 107 MMOL/L (98-107) Carbon Dioxide Level 24 MMOL/L (21-32) Anion Gap 7 mmol/L (5-15) Blood Urea Nitrogen 19 mg/dL (7-18) H Creatinine 0.8 MG/DL (0.55-1.30) Estimat Glomerular Filtration Rate > 60 mL/min (>60) Glucose Level 104 MG/DL (74-106) Calcium Level 8.2 MG/DL (8.5-10.1) L Total Bilirubin 0.6 MG/DL (0.2-1.0) Aspartate Amino Transf (AST/SGOT) 17 U/L (15-37) Alanine Aminotransferase (ALT/SGPT) 13 U/L (12-78) Alkaline Phosphatase 49 U/L (46-116) Lactate Dehydrogenase 586 U/L (81-234) H Pro-B-Type Natriuretic Peptide 2598 pg/mL (0-125) H Total Protein 6.2 G/DL (6.4-8.2) L Albumin 2.8 G/DL (3.4-5.0) L Globulin 3.4 g/dL Albumin/Globulin Ratio 0.8 (1.0-2.7) L Intake and Output 06/26/19 06/27/19 19:00 07:00 Intake Total 360 ml Balance 360 ml IV Total 110 ml Blood Product 250 ml # Voids 2 4 Objective General: No acute distress, awake and alert HEENT: NCAT, sclera anicteric, PERRL, EOMI. Neck: Supple, no significant jugular venous distention, Lungs: fair inspiratory effort, decreased air at the bases, right chest wall ecchymosis and tender over the rib cages, no Wheeze or Rales. Heart: Regular rate and rhythm, normal S1/S2, no murmurs, +PPM. Abdomen: soft, nontender, nondistended. Normoactive bowel sounds. / Rectal: Refused and deferred. Extremities: No Cyanosis , clubbing or edema. Neuro: A&O x 3, Able to move all extremities, using cane for ambulation Skin: warm, no rashes or lesions Psych: Mood is depressed. Assessment/Plan Assessment/Plan ASSESSMENT: This is an 79-year-old female. 1. Right side chest wall pain most likely due to the multiple ribs fracture. 2. Mechanical fall 3. Severe anemia. 4. Atrial fibrillation. 5. Polycythemia vera. 6. Hypertension. 7. Obstructive sleep apnea. 8. Coronary artery disease. 9. Hypercholesterolemia. 10. Congestive heart failure; WGG=[id number] 11. Right pleural effusion 12. Sick sinus syndrome status post a pacemaker. TREATMENT: 1. Chest pain. This may be secondary to fall injury. Initial troponin level was negative. Repeat troponin levels are pending. A Cardiology consultation has been obtained with Dr. Mainor Araujo. 2. Severe anemia. The patient has been typed and crossed for 2 units of packed RBCs. 3. Atrial fibrillation. As above, a Cardiology consultation has been obtained with Dr. Mainor Araujo. 4. Polycythemia vera. The patient is currently anemic. 5. Hypertension. Continue metoprolol as above. 6. Obstructive sleep apnea. 7. Coronary artery disease, status post myocardial infarction. As above, a Cardiology consultation has been obtained with Dr. Mainor Araujo. 8. Hypercholesteremia. 9. Congestive heart failure. 10. Pacemaker in situ. Pacemaker check is pending. 11. Discuss with patinet regarding discharge planning to SNF 12. CODE STATUS is full code. 13. Broad spectrum antibiotics with Rocephin IV. 14. Monitor cultures and laboratory. 15. DVT prophylaxis: SCD. 16. OOB to chair, PT Mobility US abdomen: (06/26/2019) Small right pleural effusion, decreased compared to the prior exam. No significant pocket for thoracentesis. Antonio Adrian MD June 27, 2019 13:56
[2019-06-27] MEDS: cefTRIAXone 1 GM in D5W 55 ML IVPB SCH (14:38)
--- NOTE | 2019-06-27 16:51 | Cardiology Progress Note ---
Assessment/Plan Problem List: (1) Chronic anticoagulation (2) UTI (urinary tract infection) (3) Pacemaker (4) Chest pain (5) Ribs, multiple fractures Status: stable, progressing Status Narrative Pt stable from cardiac standpoint. Recent CP likely musculoskeletal, from rib fx Rhythm stable - paced on telemetry Anemia - improved post transfusion Assessment/Plan Will check pacemaker - assess AF burden and pacer function and obtain ECHO - evaluate LV function , once pt off covid isolation Agree w/ holding anticoagulation, due to anemia, ? bleed Can dc telemetry Subjective ROS Limited/Unobtainable: No Subjective Cardiology for Dr. Araujo Pt c/o weakness, fatigue. No chest pain or palpitations Objective Last 24 Hour Vital Signs Date Time Temp Pulse Resp B/P (MAP) Pulse Ox O2 Delivery O2 Flow Rate FiO2 06/27/19 16:00 97.7 60 18 126/67 (86) 97 06/27/19 12:00 97.6 60 20 132/69 (90) 96 06/27/19 11:48 69 06/27/19 09:00 Room Air 06/27/19 08:46 61 133/65 06/27/19 08:00 98.0 61 18 133/65 (87) 95 06/27/19 07:53 64 06/27/19 04:00 69 06/27/19 04:00 98.0 94 18 116/54 (74) 98 06/27/19 00:00 98.0 62 16 117/57 (77) 98 06/27/19 00:00 64 06/26/19 22:21 62 113/62 06/26/19 21:00 Room Air 06/26/19 20:00 98.1 62 16 113/62 (79) 93 06/26/19 20:00 60 General Appearance: WD/WN, no apparent distress EENT: PERRL/EOMI Neck: non-tender, no JVD Rhythm: NSR Cardiovascular: normal rate, regular rhythm Extremities: no swelling Intake and Output 06/26/19 06/27/19 19:00 07:00 Intake Total 360 ml Balance 360 ml IV Total 110 ml Blood Product 250 ml # Voids 2 4 Laboratory Tests Test 06/27/19 07:55 White Blood Count 5.0 K/UL (4.8-10.8) Red Blood Count 2.90 M/UL (4.20-5.40) L Hemoglobin 8.9 G/DL (12.0-16.0) L Hematocrit 26.5 % (37.0-47.0) L Mean Corpuscular Volume 91 FL (80-99) Mean Corpuscular Hemoglobin 30.7 PG (27.0-31.0) Mean Corpuscular Hemoglobin Concent 33.6 G/DL (32.0-36.0) Red Cell Distribution Width 18.4 % (11.6-14.8) H Platelet Count 164 K/UL (150-450) Mean Platelet Volume 8.6 FL (6.5-10.1) Neutrophils (%) (Auto) 79.9 % (45.0-75.0) H Lymphocytes (%) (Auto) 13.5 % (20.0-45.0) L Monocytes (%) (Auto) 3.6 % (1.0-10.0) Eosinophils (%) (Auto) 0.7 % (0.0-3.0) Basophils (%) (Auto) 2.3 % (0.0-2.0) H Prothrombin Time 12.1 SEC (9.30-11.50) H Prothromb Time International Ratio 1.1 (0.9-1.1) Activated Partial Thromboplast Time 32 SEC (23-33) Sodium Level 138 MMOL/L (136-145) Potassium Level 4.3 MMOL/L (3.5-5.1) Chloride Level 107 MMOL/L (98-107) Carbon Dioxide Level 24 MMOL/L (21-32) Anion Gap 7 mmol/L (5-15) Blood Urea Nitrogen 19 mg/dL (7-18) H Creatinine 0.8 MG/DL (0.55-1.30) Estimat Glomerular Filtration Rate > 60 mL/min (>60) Glucose Level 104 MG/DL (74-106) Calcium Level 8.2 MG/DL (8.5-10.1) L Total Bilirubin 0.6 MG/DL (0.2-1.0) Aspartate Amino Transf (AST/SGOT) 17 U/L (15-37) Alanine Aminotransferase (ALT/SGPT) 13 U/L (12-78) Alkaline Phosphatase 49 U/L (46-116) Lactate Dehydrogenase 586 U/L (81-234) H Pro-B-Type Natriuretic Peptide 2598 pg/mL (0-125) H Total Protein 6.2 G/DL (6.4-8.2) L Albumin 2.8 G/DL (3.4-5.0) L Globulin 3.4 g/dL Albumin/Globulin Ratio 0.8 (1.0-2.7) L Lizette Arevalo MD June 27, 2019 16:51
--- NOTE | 2019-06-27 19:22 | NUR ---
HAND-OFF: Report given to KOJO Ho. Pt in stable condition, endorsed plan of care.
--- NOTE | 2019-06-27 20:00 | NUR ---
NURSE NOTES: RECEIVED PATIENT LYING IN BED, AWAKE, ALERT/ORIENTED X3, VERBALLY RESPONSIVE, HEBREW SPEAKING, ABLE TO MAKE SIMPLE NEEDS KNOWN IN [place], DENIES PAIN. NO SIGNS AND SYMPTOMS OF ACUTE CARDIO RESPIRATORY DISTRESS/SHORTNESS OF BREATH, NO PERIPHERAL EDEMA NOTED. CONTINUE ON ASSEMBLER FINGER BUFFS. IV INTACT RIGHT EJ/RIGHT FOREARM GAUGE 22/SALINE LOCK, NO REDNESS/SWELLING NOTED. ABDOMEN SOFT/NON DISTENDED, AUDIBLE BOWEL SOUNDS, NO N/V/D, PATIENT ABLE TO UTILIZE BEDSIDE COMMODE WITH ASSISTANCE. SIDE RAILS UP X2, BED IN LOWEST POSITION FOR SAFETY, ENCOURAGED PATIENT TO UTILIZE JAIAD LIGHT FOR ASSISTANCE, VERBALIZED UNDERSTANDING. CONTINUE WITH CURRENT PLAN OF CARE. NAD. COVID SWABS PENDING.
[2019-06-27] MEDS: Amiodarone 200mg tab ORAL SCH (20:47)
--- NOTE | 2019-06-28 00:22 | NUR ---
NURSE NOTES: RESTING WELL ON ROUNDS, NAD.
[2019-06-28 04:00] VITALS: BP 133/66
--- NOTE | 2019-06-28 06:49 | NUR ---
NURSE NOTES: RESTED WELL, NO SIGNIFICANT CHANGE OF CONDITION. SAFETY MAINTAINED. NAD.
--- NOTE | 2019-06-28 07:02 | NUR ---
HAND-OFF: Report given to IRA RATLIFF.
[2019-06-28 08:00] VITALS: BP 133/78
--- NOTE | 2019-06-28 08:01 | NUR ---
NURSE NOTES: Received report from IRA Ho. Pt awake, A/O x4, denies any pain. No s/sx of acute distress. Pt breathing even and unlabored in RA. IV sites on R EJ and R FA are patent and asymptomatic. Bed on lowest position, bed alarm on, call light within reach. Will continue plan of care.
--- NOTE | 2019-06-28 08:46 | Pulmonology Progress Note ---
Subjective ROS Limited/Unobtainable: No Interval Events: no new complains Allergies: Coded Allergies: No Known Allergies (Unverified , 04/24/18) Subjective afebrile, no leukocytosis no signs of resp distress seen and evaluated by CT surgeon labs pending for this am Objective Last 24 Hour Vital Signs Date Time Temp Pulse Resp B/P (MAP) Pulse Ox O2 Delivery O2 Flow Rate FiO2 06/28/19 08:00 97.4 60 18 133/78 (96) 95 06/28/19 04:00 60 06/28/19 04:00 97.5 66 18 133/66 (88) 95 06/28/19 00:00 60 06/27/19 23:56 97.0 60 18 149/70 (96) 96 06/27/19 21:00 Room Air 06/27/19 20:47 66 142/78 06/27/19 20:00 60 06/27/19 20:00 98.2 62 18 134/77 (96) 99 06/27/19 16:00 97.7 60 18 126/67 (86) 97 06/27/19 15:59 61 06/27/19 12:00 97.6 60 20 132/69 (90) 96 06/27/19 11:48 69 06/27/19 09:00 Room Air 06/27/19 08:46 61 133/65 Intake and Output 06/27/19 06/28/19 19:00 07:00 Intake Total 120 ml 480 ml Balance 120 ml 480 ml Intake Oral 120 ml 480 ml # Voids 4 7 # Bowel Movements 1 General Appearance: no acute distress, other - elderly female in NAD HEENT: normocephalic, atraumatic, anicteric Respiratory: decreased breath sounds Cardiovascular: normal rate Abdomen: normal bowel sounds, soft, non tender Extremities: no edema Neurologic: abnormal gait - unsteady, alert, responsive Musculoskeletal: atrophy Laboratory Tests 06/28/19 07:30: White Blood Count [Pending], Red Blood Count [Pending], Hemoglobin [Pending], Hematocrit [Pending], Mean Corpuscular Volume [Pending], Mean Corpuscular Hemoglobin [Pending], Mean Corpuscular Hemoglobin Concent [Pending], Red Cell Distribution Width [Pending], Platelet Count [Pending], Mean Platelet Volume [ Pending], Neutrophils (%) (Auto) [Pending], Lymphocytes (%) (Auto) [Pending], Monocytes (%) (Auto) [Pending], Eosinophils (%) (Auto) [Pending], Basophils (%) (Auto) [Pending], Sodium Level [Pending], Potassium Level [Pending], Chloride Level [Pending], Carbon Dioxide Level [Pending], Blood Urea Nitrogen [Pending], Creatinine [Pending], Estimat Glomerular Filtration Rate [Pending], Glucose Level [Pending], Calcium Level [Pending], Phosphorus Level [Pending], Magnesium Level [Pending], Total Bilirubin [Pending], Aspartate Amino Transf (AST/SGOT) [ Pending], Alanine Aminotransferase (ALT/SGPT) [Pending], Alkaline Phosphatase [ Pending], Total Protein [Pending], Albumin [Pending], Globulin [Pending] Current Medications Medications (Trade) Dose Ordered Sig/Escobar Route PRN Reason Start Time Stop Time Status Last Admin Dose Admin Acetaminophen (Tylenol) 650 mg Q4H PRN ORAL fever 06/22/19 19:00 07/22/19 18:59 Acetaminophen/ Hydrocodone Bitart ([place] 10/325) 1 tab Q4H PRN ORAL Severe Pain (Pain Scale 7-10) 06/23/19 16:15 06/30/19 16:14 06/25/19 22:54 Acetaminophen/ Hydrocodone Bitart ([place] 5/325) 1 tab Q4H PRN ORAL Moderate Pain (Pain Scale 4-6) 06/23/19 16:15 06/30/19 16:14 Amiodarone HCl (Cordarone) 200 mg BIOTEC ORAL 06/22/19 21:00 09/20/19 20:59 06/27/19 20:47 Ceftriaxone Sodium 1 gm/ Dextrose 55 ml @ 110 mls/hr Q24H IVPB 06/26/19 14:00 07/03/19 13:59 06/27/19 14:38 Dextrose (Dextrose 50%) 25 ml Q30M PRN IV Hypoglycemia 06/22/19 19:00 09/20/19 18:59 Dextrose (Dextrose 50%) 50 ml Q30M PRN IV Hypoglycemia 06/22/19 19:00 09/20/19 18:59 Escitalopram Oxalate (Lexapro) 10 mg DAILY ORAL 06/23/19 09:00 07/23/19 08:59 06/27/19 08:46 Hydroxyzine HCl (Atarax) 25 mg Q8HR PRN ORAL Itching 06/22/19 23:45 07/22/19 23:44 06/23/19 00:05 Metoprolol Tartrate (Lopressor) 50 mg EVERY 12 HOURS ORAL 06/22/19 21:00 09/20/19 20:59 06/27/19 20:47 Mirtazapine (Remeron) 7.5 mg BEDTIME ORAL 06/22/19 21:00 09/20/19 20:59 06/27/19 20:47 Ondansetron HCl (Zofran) 4 mg Q6H PRN IVP Nausea & Vomiting 06/22/19 19:00 07/22/19 18:59 Polyethylene Glycol (Miralax) 17 gm HSPRN PRN ORAL Constipation 06/22/19 19:00 07/22/19 18:59 Zolpidem Tartrate (Ambien) 5 mg HSPRN PRN ORAL Insomnia 06/22/19 19:00 06/29/19 18:59 Assessment/Plan Assessment/Plan ASSESSMENT s/p mechanical fall Right pleural effusion , moderate to large with probable associated hemothorax Acute multiple rib fractures COPD History of KELVIN PAF CHF with diastolic dysfunction SSS, status post pacemaker Profound anemia, s/p 3 u PRBC Hx of polycythemia vera Severe pulmonary HTN PLAN OF CARE tele O2 HHN PRN CT head - no acute IC pathology CT C/A/P noted ; US chest noted, m to l R pleural effusion chest US 06/25 with Small right pleural effusion, decreased compared to the prior exam. No significant pocket for thoracentesis. off anticoagulation , continue amiodarone and BB cardio follows CXR 06/26 - Pulmonary vascular congestion, similar to mildly increased from the prior exam. No significant change in the small right pleural effusion or subtle infiltrate in the right lung base. seen and evaluated by CT surgeon unable to perform thoracentesis 06/25, given small pocket may need VATS for washout. ECHO with pEF and RVSP of 71 c/w severe pulm HTN s/p 3 u PRBC UCX + mixed urogenital contaminant on empiric Ceftriaxone per ID recs ? dc pain management supportive care fall precaution case discussed and evaluated by supervising physician Cait Melchor NP June 28, 2019 08:46
[2019-06-28] MEDS: Metoprolol Tartrate 50mg tab ORAL SCH ×2 (08:54→20:33)
[2019-06-28 09:10] LABS: BASOPHILS % (AUTO) 2.7 % (0.0-2.0); EOSINOPHILS % (AUTO) 0.9 % (0.0-3.0); HEMATOCRIT 24.5 % (37.0-47.0); HEMOGLOBIN 8.7 G/DL (12.0-16.0); LYMPHOCYTES % (AUTO) 14.8 % (20.0-45.0); MEAN CORPUSCULAR VOLUME 89 FL (80-99); MONOCYTES % (AUTO) 4.5 % (1.0-10.0); NEUTROPHILS % (AUTO) 77.1 % (45.0-75.0); PLATELET COUNT 169 K/UL (150-450); RED BLOOD COUNT 2.75 M/UL (4.20-5.40); RED CELL DISTRIBUTION WIDTH 18.7 % (11.6-14.8); WHITE BLOOD COUNT 4.4 K/UL (4.8-10.8)
[2019-06-28 09:17] LABS: ALANINE AMINOTRANSFERASE 9 U/L (12-78); ALBUMIN 2.6 G/DL (3.4-5.0); ALBUMIN/GLOBULIN RATIO 0.8 (1.0-2.7); ALKALINE PHOSPHATASE 55 U/L (46-116); ANION GAP 12 mmol/L (5-15); ASPARTATE AMINO TRANSFERASE 16 U/L (15-37); BILIRUBIN,TOTAL 0.6 MG/DL (0.2-1.0); BLOOD UREA NITROGEN 13 mg/dL (7-18); CALCIUM 8.5 MG/DL (8.5-10.1); CARBON DIOXIDE 22 MMOL/L (21-32); CHLORIDE 107 MMOL/L (98-107); CREATININE 0.7 MG/DL (0.55-1.30); PHOSPHORUS 2.7 MG/DL (2.5-4.9); POTASSIUM 4.2 MMOL/L (3.5-5.1); SODIUM 140 MMOL/L (136-145)
--- NOTE | 2019-06-28 09:50 | NUR ---
NURSE NOTES: Informed Dr Adrian that the son of the pt called, requesting to DC the antidepressant medication (Lexapro). Per son, the pt feels more depressed when taking this med. >>DR Adrian ordered to DC med. Informed Kishan (son).
[2019-06-28 12:00] VITALS: BP 130/70
--- NOTE | 2019-06-28 12:59 | Internal Med Progress Note ---
Subjective Physician Name Antonio Adrian Attending Physician Antonio Adrian MD Current Medications Medications (Trade) Dose Ordered Sig/Escobar Route PRN Reason Start Time Stop Time Status Last Admin Dose Admin Acetaminophen (Tylenol) 650 mg Q4H PRN ORAL fever 06/22/19 19:00 07/22/19 18:59 Acetaminophen/ Hydrocodone Bitart ([place] 10/325) 1 tab Q4H PRN ORAL Severe Pain (Pain Scale 7-10) 06/23/19 16:15 06/30/19 16:14 06/25/19 22:54 Acetaminophen/ Hydrocodone Bitart ([place] 5/325) 1 tab Q4H PRN ORAL Moderate Pain (Pain Scale 4-6) 06/23/19 16:15 06/30/19 16:14 Amiodarone HCl (Cordarone) 200 mg BIOTEC ORAL 06/22/19 21:00 09/20/19 20:59 06/27/19 20:47 Ceftriaxone Sodium 1 gm/ Dextrose 55 ml @ 110 mls/hr Q24H IVPB 06/26/19 14:00 07/03/19 13:59 06/27/19 14:38 Dextrose (Dextrose 50%) 25 ml Q30M PRN IV Hypoglycemia 06/22/19 19:00 09/20/19 18:59 Dextrose (Dextrose 50%) 50 ml Q30M PRN IV Hypoglycemia 06/22/19 19:00 09/20/19 18:59 Hydroxyzine HCl (Atarax) 25 mg Q8HR PRN ORAL Itching 06/22/19 23:45 07/22/19 23:44 06/23/19 00:05 Metoprolol Tartrate (Lopressor) 50 mg EVERY 12 HOURS ORAL 06/22/19 21:00 09/20/19 20:59 06/28/19 08:54 Mirtazapine (Remeron) 7.5 mg BEDTIME ORAL 06/22/19 21:00 09/20/19 20:59 06/27/19 20:47 Ondansetron HCl (Zofran) 4 mg Q6H PRN IVP Nausea & Vomiting 06/22/19 19:00 07/22/19 18:59 Polyethylene Glycol (Miralax) 17 gm HSPRN PRN ORAL Constipation 06/22/19 19:00 6/10/20 18:59 Zolpidem Tartrate (Ambien) 5 mg HSPRN PRN ORAL Insomnia 06/22/19 19:00 06/29/19 18:59 Allergies: Coded Allergies: No Known Allergies (Unverified , 04/24/18) Subjective Awake, alert, responsive, Feeling better, denies any shortness of breath, complain about less right-sided chest wall pain, hemoglobin: 8.7. Objective Last Vital Signs Date Time Temp Pulse Resp B/P (MAP) Pulse Ox O2 Delivery O2 Flow Rate FiO2 06/28/19 12:00 97.7 60 20 130/70 (90) 96 06/28/19 09:00 Room Air Laboratory Tests Test 06/28/19 07:30 White Blood Count 4.4 K/UL (4.8-10.8) L Red Blood Count 2.75 M/UL (4.20-5.40) L Hemoglobin 8.7 G/DL (12.0-16.0) L Hematocrit 24.5 % (37.0-47.0) L Mean Corpuscular Volume 89 FL (80-99) Mean Corpuscular Hemoglobin 31.7 PG (27.0-31.0) H Mean Corpuscular Hemoglobin Concent 35.5 G/DL (32.0-36.0) Red Cell Distribution Width 18.7 % (11.6-14.8) H Platelet Count 169 K/UL (150-450) Mean Platelet Volume 11.3 FL (6.5-10.1) H Neutrophils (%) (Auto) 77.1 % (45.0-75.0) H Lymphocytes (%) (Auto) 14.8 % (20.0-45.0) L Monocytes (%) (Auto) 4.5 % (1.0-10.0) Eosinophils (%) (Auto) 0.9 % (0.0-3.0) Basophils (%) (Auto) 2.7 % (0.0-2.0) H Sodium Level 140 MMOL/L (136-145) Potassium Level 4.2 MMOL/L (3.5-5.1) Chloride Level 107 MMOL/L (98-107) Carbon Dioxide Level 22 MMOL/L (21-32) Anion Gap 12 mmol/L (5-15) Blood Urea Nitrogen 13 mg/dL (7-18) Creatinine 0.7 MG/DL (0.55-1.30) Estimat Glomerular Filtration Rate > 60 mL/min (>60) Glucose Level 73 MG/DL (74-106) L Calcium Level 8.5 MG/DL (8.5-10.1) Phosphorus Level 2.7 MG/DL (2.5-4.9) Magnesium Level 2.0 MG/DL (1.8-2.4) Total Bilirubin 0.6 MG/DL (0.2-1.0) Aspartate Amino Transf (AST/SGOT) 16 U/L (15-37) Alanine Aminotransferase (ALT/SGPT) 9 U/L (12-78) L Alkaline Phosphatase 55 U/L (46-116) Total Protein 5.9 G/DL (6.4-8.2) L Albumin 2.6 G/DL (3.4-5.0) L Globulin 3.3 g/dL Albumin/Globulin Ratio 0.8 (1.0-2.7) L Intake and Output 06/27/19 06/28/19 19:00 07:00 Intake Total 120 ml 480 ml Balance 120 ml 480 ml Intake Oral 120 ml 480 ml # Voids 4 7 # Bowel Movements 1 Objective General: No acute distress, awake and alert HEENT: NCAT, sclera anicteric, PERRL, EOMI. Neck: Supple, no significant jugular venous distention, Lungs: fair inspiratory effort, decreased air at the bases, right chest wall ecchymosis and tender over the rib cages, no Wheeze or Rales. Heart: Regular rate and rhythm, normal S1/S2, no murmurs, +PPM. Abdomen: soft, nontender, nondistended. Normoactive bowel sounds. / Rectal: Refused and deferred. Extremities: No Cyanosis , clubbing or edema. Neuro: A&O x 3, Able to move all extremities, using cane for ambulation Skin: warm, no rashes or lesions Psych: Mood is depressed. Assessment/Plan Assessment/Plan ASSESSMENT: This is an 79-year-old female. 1. Right side chest wall pain most likely due to the multiple ribs fracture. 2. Mechanical fall 3. Severe anemia. 4. Atrial fibrillation. 5. Polycythemia vera. 6. Hypertension. 7. Obstructive sleep apnea. 8. Coronary artery disease. 9. Hypercholesterolemia. 10. Congestive heart failure; DRG=[id number] 11. Right pleural effusion 12. Sick sinus syndrome status post a pacemaker. TREATMENT: 1. Chest pain. This may be secondary to fall injury. Initial troponin level was negative. Repeat troponin levels are pending. A Cardiology consultation has been obtained with Dr. Mainor Araujo. 2. Severe anemia. The patient has been typed and crossed for 2 units of packed RBCs. 3. Atrial fibrillation. As above, a Cardiology consultation has been obtained with Dr. Mainor Araujo. 4. Polycythemia vera. The patient is currently anemic. 5. Hypertension. Continue metoprolol as above. 6. Obstructive sleep apnea. 7. Coronary artery disease, status post myocardial infarction. As above, a Cardiology consultation has been obtained with Dr. Mainor Araujo. 8. Hypercholesteremia. 9. Chronic Congestive heart failure. 10. Pacemaker in situ. Pacemaker check is pending. 11. Discuss with patient regarding discharge planning, wants to go home, refused SNF. 12. CODE STATUS is full code. 13. Broad spectrum antibiotics with Rocephin IV. 14. Monitor cultures and laboratory. 15. DVT prophylaxis: SCD. 16. OOB to chair, PT Mobility 17. Dc Telemetry US abdomen: (06/26/2019) Small right pleural effusion, decreased compared to the prior exam. No significant pocket for thoracentesis. Antonio Adrian MD June 28, 2019 12:59
[2019-06-28] MEDS: cefTRIAXone 1 GM in D5W 55 ML IVPB SCH (14:16)
--- NOTE | 2019-06-28 15:28 | NUR ---
PT Note PT yolanda completed, tx initiated. Patient c/o pain on the right chest area, has muscle weakness and decreased postural stability with loss of balance during gait training x 1. Patient needs PT to increase her muscle strength and balance to improve her safety in mobility and gait to enable her to return to F. Addendum: 06/28/19 at 1529 by EM BEY PT Amended: Links added.
[2019-06-28 16:00] VITALS: BP 126/68
--- NOTE | 2019-06-28 16:40 | Cardiology Progress Note ---
Assessment/Plan Problem List: (1) Chronic anticoagulation (2) UTI (urinary tract infection) (3) Pacemaker (4) Chest pain (5) Ribs, multiple fractures (6) Paroxysmal A-fib Status: stable, unchanged Status Narrative Pt stable from cardiac standpoint. no AF on telemetry - atrial pacing. tele has now been dc d H/h stable overnight Assessment/Plan Will check pacemaker - assess AF burden and pacer function and obtain ECHO - evaluate LV function , once pt off covid isolation Agree w/ holding anticoagulation, due to anemia, ? bleed followup labs in am. Subjective ROS Limited/Unobtainable: No Subjective Cardiology for Dr. Araujo Pt alert, no c/o Objective Last 24 Hour Vital Signs Date Time Temp Pulse Resp B/P (MAP) Pulse Ox O2 Delivery O2 Flow Rate FiO2 06/28/19 16:00 97.5 61 18 126/68 (87) 95 06/28/19 12:00 97.7 60 20 130/70 (90) 96 06/28/19 11:24 62 06/28/19 09:00 Room Air 06/28/19 08:54 60 133/78 06/28/19 08:00 97.4 60 18 133/78 (96) 95 06/28/19 07:45 66 06/28/19 04:00 60 06/28/19 04:00 97.5 66 18 133/66 (88) 95 06/28/19 00:00 60 06/27/19 23:56 97.0 60 18 149/70 (96) 96 06/27/19 21:00 Room Air 06/27/19 20:47 66 142/78 06/27/19 20:00 60 06/27/19 20:00 98.2 62 18 134/77 (96) 99 General Appearance: WD/WN, no apparent distress - exam deferred due to COVID isolation, alert Intake and Output 06/27/19 06/28/19 19:00 07:00 Intake Total 120 ml 480 ml Balance 120 ml 480 ml Intake Oral 120 ml 480 ml # Voids 4 7 # Bowel Movements 1 Laboratory Tests Test 06/28/19 07:30 White Blood Count 4.4 K/UL (4.8-10.8) L Red Blood Count 2.75 M/UL (4.20-5.40) L Hemoglobin 8.7 G/DL (12.0-16.0) L Hematocrit 24.5 % (37.0-47.0) L Mean Corpuscular Volume 89 FL (80-99) Mean Corpuscular Hemoglobin 31.7 PG (27.0-31.0) H Mean Corpuscular Hemoglobin Concent 35.5 G/DL (32.0-36.0) Red Cell Distribution Width 18.7 % (11.6-14.8) H Platelet Count 169 K/UL (150-450) Mean Platelet Volume 11.3 FL (6.5-10.1) H Neutrophils (%) (Auto) 77.1 % (45.0-75.0) H Lymphocytes (%) (Auto) 14.8 % (20.0-45.0) L Monocytes (%) (Auto) 4.5 % (1.0-10.0) Eosinophils (%) (Auto) 0.9 % (0.0-3.0) Basophils (%) (Auto) 2.7 % (0.0-2.0) H Sodium Level 140 MMOL/L (136-145) Potassium Level 4.2 MMOL/L (3.5-5.1) Chloride Level 107 MMOL/L (98-107) Carbon Dioxide Level 22 MMOL/L (21-32) Anion Gap 12 mmol/L (5-15) Blood Urea Nitrogen 13 mg/dL (7-18) Creatinine 0.7 MG/DL (0.55-1.30) Estimat Glomerular Filtration Rate > 60 mL/min (>60) Glucose Level 73 MG/DL (74-106) L Calcium Level 8.5 MG/DL (8.5-10.1) Phosphorus Level 2.7 MG/DL (2.5-4.9) Magnesium Level 2.0 MG/DL (1.8-2.4) Total Bilirubin 0.6 MG/DL (0.2-1.0) Aspartate Amino Transf (AST/SGOT) 16 U/L (15-37) Alanine Aminotransferase (ALT/SGPT) 9 U/L (12-78) L Alkaline Phosphatase 55 U/L (46-116) Total Protein 5.9 G/DL (6.4-8.2) L Albumin 2.6 G/DL (3.4-5.0) L Globulin 3.3 g/dL Albumin/Globulin Ratio 0.8 (1.0-2.7) L Lizette Arevalo MD June 28, 2019 16:40
--- NOTE | 2019-06-28 19:20 | NUR ---
HAND-OFF: Report given to IRA Rosado. Pt in stable condition, endorsed plan of care.
--- NOTE | 2019-06-28 19:48 | NUR ---
NURSE NOTES: Received patient in bed, awake, alert, oriented, speaks Estonian,able to make his needs known, on room air, IV sites are clean dry and intact, call light is within reach, bed is lowered, locked alarm is on, will continue to monitor for comfort and safety.
[2019-06-28 20:00] VITALS: BP 130/74
[2019-06-28] MEDS: Amiodarone 200mg tab ORAL SCH (20:33)
[2019-06-29] VITALS: BP 128/74
[2019-06-29 04:00] VITALS: BP 137/74
[2019-06-29 05:59] LABS: BASOPHILS % (AUTO) 1.9 % (0.0-2.0); EOSINOPHILS % (AUTO) 0.6 % (0.0-3.0); HEMATOCRIT 26.7 % (37.0-47.0); LYMPHOCYTES % (AUTO) 14.9 % (20.0-45.0); MEAN CORPUSCULAR VOLUME 90 FL (80-99); MONOCYTES % (AUTO) 2.5 % (1.0-10.0); NEUTROPHILS % (AUTO) 80.1 % (45.0-75.0); PLATELET COUNT 168 K/UL (150-450); RED BLOOD COUNT 2.95 M/UL (4.20-5.40); RED CELL DISTRIBUTION WIDTH 18.5 % (11.6-14.8); WHITE BLOOD COUNT 5.6 K/UL (4.8-10.8)
--- NOTE | 2019-06-29 07:27 | NUR ---
HAND-OFF: Report given to Theodora ROTH.
--- NOTE | 2019-06-29 07:31 | NUR ---
NURSE NOTES: Received report from IRA Rosado. Pt is awake and alert. pt is on RA, no SOB or acute respiratory distress noted. pt has intact iv access SL. Pt is on continues heart monitoring. no complain of pain at this moment. all needs attended, bed is locked and is in the lowest position. call light within easy reach. will continue to monitor.
[2019-06-29 08:00] VITALS: BP 144/73
--- NOTE | 2019-06-29 09:22 | NUR ---
*-*DISCHARGE PLANNING*-* PATIENT HAS BEEN REFERRED TO: [facility] P: [phone] F: [phone] S/W ZENON, STATED ADMISSION NOT IN YET, CALL BACK IN 30 MINS. Addendum: 06/30/19 at 0927 by JACOBO BISHOP CM [facility] P: [phone] S/W KEN, NO BEDS AVAILABLE.
[2019-06-29] MEDS: Metoprolol Tartrate 50mg tab ORAL SCH ×2 (10:15→20:55)
--- NOTE | 2019-06-29 10:41 | Pulmonology Progress Note ---
Subjective ROS Limited/Unobtainable: No Interval Events: no new complains Allergies: Coded Allergies: No Known Allergies (Unverified , 04/24/18) Subjective afebrile, no leukocytosis no signs of resp distress pulse ox stable on RA seen and evaluated by CT surgeon 06/25 US chest with Small right pleural effusion, decreased compared to the prior exam. No significant pocket for thoracentesis. Objective Last 24 Hour Vital Signs Date Time Temp Pulse Resp B/P (MAP) Pulse Ox O2 Delivery O2 Flow Rate FiO2 06/29/19 10:15 60 144/73 06/29/19 08:00 97.9 60 18 144/73 (96) 96 06/29/19 04:00 98.7 89 20 137/74 (95) 98 06/29/19 00:00 97.4 88 20 128/74 (92) 98 88 06/28/19 21:07 Room Air 06/28/19 20:33 87 139/74 06/28/19 20:00 98.7 79 18 130/74 (92) 98 06/28/19 16:00 97.5 61 18 126/68 (87) 95 06/28/19 12:00 97.7 60 20 130/70 (90) 96 06/28/19 11:24 62 Intake and Output 06/28/19 06/29/19 19:00 07:00 Intake Total 100 ml Balance 100 ml Intake Oral 100 ml # Voids 2 General Appearance: no acute distress, other - elderly female in NAD HEENT: normocephalic, atraumatic, anicteric Respiratory: decreased breath sounds Cardiovascular: normal rate Abdomen: normal bowel sounds, soft, non tender Extremities: no edema Neurologic: abnormal gait - unsteady, alert, responsive Musculoskeletal: atrophy Microbiology Date/Time Source Procedure Growth Status 06/26/19 16:25 Nasopharynx Coronavirus COVID-19 PCR (DELL) - Final Complete Laboratory Tests 06/29/19 04:00: White Blood Count 5.6, Red Blood Count 2.95L, Hemoglobin 9.0L, Hematocrit 26.7L , Mean Corpuscular Volume 90, Mean Corpuscular Hemoglobin 30.5, Mean Corpuscular Hemoglobin Concent 33.7, Red Cell Distribution Width 18.5H, Platelet Count 168, Mean Platelet Volume 7.9, Neutrophils (%) (Auto) 80.1H, Lymphocytes (%) (Auto) 14.9L, Monocytes (%) (Auto) 2.5, Eosinophils (%) (Auto) 0.6, Basophils (%) (Auto) 1.9 Current Medications Medications (Trade) Dose Ordered Sig/Escobar Route PRN Reason Start Time Stop Time Status Last Admin Dose Admin Acetaminophen (Tylenol) 650 mg Q4H PRN ORAL fever 06/22/19 19:00 07/22/19 18:59 Acetaminophen/ Hydrocodone Bitart ([place] 10/325) 1 tab Q4H PRN ORAL Severe Pain (Pain Scale 7-10) 06/23/19 16:15 06/30/19 16:14 06/25/19 22:54 Acetaminophen/ Hydrocodone Bitart ([place] 5/325) 1 tab Q4H PRN ORAL Moderate Pain (Pain Scale 4-6) 06/23/19 16:15 06/30/19 16:14 Amiodarone HCl (Cordarone) 200 mg BIOTEC ORAL 06/22/19 21:00 09/20/19 20:59 06/28/19 20:33 Ceftriaxone Sodium 1 gm/ Dextrose 55 ml @ 110 mls/hr Q24H IVPB 06/26/19 14:00 07/03/19 13:59 06/28/19 14:16 Dextrose (Dextrose 50%) 25 ml Q30M PRN IV Hypoglycemia 06/22/19 19:00 09/20/19 18:59 Dextrose (Dextrose 50%) 50 ml Q30M PRN IV Hypoglycemia 06/22/19 19:00 09/20/19 18:59 Hydroxyzine HCl (Atarax) 25 mg Q8HR PRN ORAL Itching 06/22/19 23:45 07/22/19 23:44 06/23/19 00:05 Metoprolol Tartrate (Lopressor) 50 mg EVERY 12 HOURS ORAL 06/22/19 21:00 09/20/19 20:59 06/29/19 10:15 Mirtazapine (Remeron) 7.5 mg BEDTIME ORAL 06/22/19 21:00 09/20/19 20:59 06/28/19 20:33 Ondansetron HCl (Zofran) 4 mg Q6H PRN IVP Nausea & Vomiting 06/22/19 19:00 07/22/19 18:59 Polyethylene Glycol (Miralax) 17 gm HSPRN PRN ORAL Constipation 06/22/19 19:00 07/22/19 18:59 Zolpidem Tartrate (Ambien) 5 mg HSPRN PRN ORAL Insomnia 06/22/19 19:00 06/29/19 18:59 Assessment/Plan Assessment/Plan ASSESSMENT s/p mechanical fall Right pleural effusion , moderate to large with probable associated hemothorax Acute multiple rib fractures COPD Suspected COVID 19 - not detected History of KELVIN PAF CHF with diastolic dysfunction SSS, status post pacemaker Profound anemia, s/p 3 u PRBC Hx of polycythemia vera Severe pulmonary HTN PLAN OF CARE tele O2 HHN PRN CT head - no acute IC pathology CT C/A/P noted ; 06/22 US chest noted, m to l R pleural effusion 06/25 US chest with Small right pleural effusion, decreased compared to the prior exam. No significant pocket for thoracentesis. SARS COV-2 by PCR 06/25 not detected off anticoagulation , continue amiodarone and BB cardio follows seen and evaluated by CT surgeon thoracentesis not performed given small pocket 06/25 per US chest may need VATS for washout. ECHO with pEF and RVSP of 71 c/w severe pulm HTN CXR 06/26 showed Pulmonary vascular congestion, similar to mildly increased from the prior exam. No significant change in the small right pleural effusion or subtle infiltrate in the right lung base. will repeat CXR this am s/p 3 u PRBC, HH remains stable UCX + mixed urogenital contaminant on empiric Ceftriaxone per ID recs pain management supportive care fall precaution case discussed and evaluated by supervising physician Cait Melchor NP June 29, 2019 10:41
[2019-06-29 12:00] VITALS: BP 131/64
--- NOTE | 2019-06-29 12:04 | NUR ---
*-*DISCHARGE PLANNING*-* PATIENT HAS BEEN REFERRED TO: [facility] P: [phone] S/W KEN, NO BEDS AVAILABLE
--- NOTE | 2019-06-29 12:07 | Infectious Diseases Prog Note ---
Assessment/Plan Assessment/Plan Assessment: Afebrile No leukocytosis -06/21 u/a wbc 15-20, nit neg, leuk+3; UCx <10 mixed urogenital contaminants Probable PNA- COVID19 neg x1 (overall low suspicion) -06/26 CXR: Pulmonary vascular congestion, similar to mildly increased from the prior exam. No significant change in the small right pleural effusion or subtle infiltrate in the right lung base. -06/25 SARS-COV2 PCR neg -06/23 CXR: Right basilar infiltrate with trace right effusion. s/p Mechanical fall Rib, abdominal pain- 2ry to R rib fractures and large R pleural effusion-? hemothorax -06/25 Chest US: Small right pleural effusion, decreased compared to the prior exam. No significant pocket for thoracentesis. -06/22 Chest US: Positive for right pleural effusion -06/[address]: 1. 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 No acute intracranial pathology is detected. CT C/abd/p:No evidence of acute injury to the abdominal or pelvic viscera. Somewhat limited study due to motion artifact. Cholelithiasis. Acute posterior medial lower right rib fractures. Moderate to large right pleural effusion, possibly containing an element of the hemothorax. Cardiomegaly.ASCVD. No pneumothoraces. Acute on chronic anemia -08/06/18 sp EGD: Normal upper endoscopy, status post biopsy. -path: mild chronic gastritis, no H. pylori identified pAfib hx of rib fractures Sinus node dysfunction s/p PPM (batter exchange July 2018) s/p KELI GERD polycythemia vera HLD MDD anemia NSTEMI s/p normal cardiac catheterization 2019 HTN KELVIN dCHF Plan: -Cont empiric Ceftriaxone #4/5 -f/u cx -Monitor CBC/CMP, temperatures -aspiration precautions -ok to dc COVID19 isolation Thank you for consulting [facility]. Will contiue to follow along with you. Discussed with RN Subjective Allergies: Coded Allergies: No Known Allergies (Unverified , 04/24/18) Subjective afebrile at RA no leukocytosis Objective Vital Signs Last 24 Hour Vital Signs Date Time Temp Pulse Resp B/P (MAP) Pulse Ox O2 Delivery O2 Flow Rate FiO2 06/29/19 10:15 60 144/73 06/29/19 08:00 97.9 60 18 144/73 (96) 96 5/18/20 04:00 98.7 89 20 137/74 (95) 98 06/29/19 00:00 97.4 88 20 128/74 (92) 98 88 06/28/19 21:07 Room Air 06/28/19 20:33 87 139/74 06/28/19 20:00 98.7 79 18 130/74 (92) 98 06/28/19 16:00 97.5 61 18 126/68 (87) 95 Height (Feet): 5 Height (Inches): 0.00 Weight (Pounds): 140 Objective General Appearance: no acute distress, other - elderly female in NAD HEENT: normocephalic, atraumatic, anicteric Respiratory: decreased breath sounds Cardiovascular: normal rate Abdomen: normal bowel sounds, soft, non tender Extremities: no edema Neurologic: abnormal gait - unsteady, alert, responsive Musculoskeletal: atrophy Microbiology Date/Time Source Procedure Growth Status 06/26/19 16:25 Nasopharynx Coronavirus COVID-19 PCR (DELL) - Final Complete Laboratory Tests Test 06/29/19 04:00 White Blood Count 5.6 K/UL (4.8-10.8) Red Blood Count 2.95 M/UL (4.20-5.40) L Hemoglobin 9.0 G/DL (12.0-16.0) L Hematocrit 26.7 % (37.0-47.0) L Mean Corpuscular Volume 90 FL (80-99) Mean Corpuscular Hemoglobin 30.5 PG (27.0-31.0) Mean Corpuscular Hemoglobin Concent 33.7 G/DL (32.0-36.0) Red Cell Distribution Width 18.5 % (11.6-14.8) H Platelet Count 168 K/UL (150-450) Mean Platelet Volume 7.9 FL (6.5-10.1) Neutrophils (%) (Auto) 80.1 % (45.0-75.0) H Lymphocytes (%) (Auto) 14.9 % (20.0-45.0) L Monocytes (%) (Auto) 2.5 % (1.0-10.0) Eosinophils (%) (Auto) 0.6 % (0.0-3.0) Basophils (%) (Auto) 1.9 % (0.0-2.0) Current Medications Medications (Trade) Dose Ordered Sig/Escobar Route PRN Reason Start Time Stop Time Status Last Admin Dose Admin Acetaminophen (Tylenol) 650 mg Q4H PRN ORAL fever 06/22/19 19:00 07/22/19 18:59 Acetaminophen/ Hydrocodone Bitart ([place] 10/325) 1 tab Q4H PRN ORAL Severe Pain (Pain Scale 7-10) 06/23/19 16:15 06/30/19 16:14 06/25/19 22:54 Acetaminophen/ Hydrocodone Bitart ([place] 5/325) 1 tab Q4H PRN ORAL Moderate Pain (Pain Scale 4-6) 06/23/19 16:15 06/30/19 16:14 Amiodarone HCl (Cordarone) 200 mg BIOTEC ORAL 06/22/19 21:00 09/20/19 20:59 06/28/19 20:33 Ceftriaxone Sodium 1 gm/ Dextrose 55 ml @ 110 mls/hr Q24H IVPB 06/26/19 14:00 07/03/19 13:59 06/28/19 14:16 Dextrose (Dextrose 50%) 25 ml Q30M PRN IV Hypoglycemia 06/22/19 19:00 09/20/19 18:59 Dextrose (Dextrose 50%) 50 ml Q30M PRN IV Hypoglycemia 06/22/19 19:00 09/20/19 18:59 Hydroxyzine HCl (Atarax) 25 mg Q8HR PRN ORAL Itching 06/22/19 23:45 07/22/19 23:44 06/23/19 00:05 Metoprolol Tartrate (Lopressor) 50 mg EVERY 12 HOURS ORAL 06/22/19 21:00 09/20/19 20:59 06/29/19 10:15 Mirtazapine (Remeron) 7.5 mg BEDTIME ORAL 06/22/19 21:00 09/20/19 20:59 06/28/19 20:33 Ondansetron HCl (Zofran) 4 mg Q6H PRN IVP Nausea & Vomiting 06/22/19 19:00 07/22/19 18:59 Polyethylene Glycol (Miralax) 17 gm HSPRN PRN ORAL Constipation 06/22/19 19:00 07/22/19 18:59 Zolpidem Tartrate (Ambien) 5 mg HSPRN PRN ORAL Insomnia 06/22/19 19:00 06/29/19 18:59 Alejandrina Arrieta M.D. June 29, 2019 12:07
--- NOTE | 2019-06-29 12:37 | NUR ---
*-*DISCHARGE PLANNING*-* PATIENT HAS BEEN REFERRED TO: [facility] P: F: [phone] [facility] P: F: [phone] Addendum: 06/29/19 at 1439 by JACOBO BISHOP CM PATIENT HAS BEEN REFERRED TO: [facility] P: S/W KWAME, NOT ACCEPTING NEW PATIENTS [facility] P: S/W RAY, NO BEDS, NEEDS 2ND COVID TEST
[2019-06-29] MEDS: cefTRIAXone 1 GM in D5W 55 ML IVPB SCH (13:13)
--- NOTE | 2019-06-29 13:57 | NUR ---
CASE MANAGEMENT:REVIEW 06/29/19 SI: PLEURAL EFFUSION. COPD.AFIB. CHF FALL W/ RIB FRACTURES. ANEMIA 98.4 62 18 131/64 95% ON RA H/H-9.0/26.7 GLUCOSE-73 IS; IV ROCEPHIN Q24 AMIODARONE PO BID LOPRESSOR PO Q12 REMERON PO QHS NORCO PO Q4HRS PRN : TELEMETRY STATUS DCP: FROM HOME PLAN: THORACENTESIS TRANSFUSE PRB'S
--- NOTE | 2019-06-29 14:03 | NUR ---
DISCHARGE PLANNING ACTIVELY SEEKING SNF PLACEMENT FOR DISCHARGE [facility] ~ NO BED S AVAILABLE [facility] ~ ONLY 1 MALE BED AVAILABLE [facility] ~ PENDING KELLIE RAYMUNDO ~ PENDING THORACENTESIS CANCELLED ?
--- NOTE | 2019-06-29 14:36 | NUR ---
NURSE NOTES: Dr Araujo is notified if pt clear for surgery, he will come today to visit pt. will continue to monitor.
--- NOTE | 2019-06-29 14:38 | Diagnostic Imaging Report ---
Indication: Shortness of breath Technique: XRAY Chest 1v Comparison: 06/27/2019 Findings: Heart size and mediastinal contours are stable. Pacemaker is unchanged in position. Small right pleural effusion isn't patchy opacities at the right base, not significantly changed compared to the prior exam. No pneumothorax. Osseous structures are stable. Impression: Small right pleural effusion and adjacent opacities at the right base may related to compressive atelectasis and/or pneumonia. Findings are not significantly changed compared to the prior exam.
--- NOTE | 2019-06-29 14:59 | NUR ---
*-*DISCHARGE PLANNING*-* PATIENT HAS BEEN REFERRED TO: [facility] P: [phone] [facility] P: [phone] [facility] P: [phone] Addendum: 06/29/19 at 1725 by JACOBO BISHOP CM *-*DISCHARGE PLANNING*-* PATIENT HAS BEEN REFERRED TO: [facility] P: [phone] S/W DIAN, WILL CALL TOMORROW [facility] P: [phone] S/W VELMA, AALIYAH [facility] P: [phone] S/W MARIELLE, NOT ABLE TO ACCEPT PATIENT Addendum: 06/30/19 at 1022 by JACOBO BISHOP CM PATIENT HAS BEEN REFERRED TO: [facility] P: [phone] S/W DIAN, WILLING TO ACCEPT PATIENT, NEED DISCHARGE ORDER. [facility] P: [phone] S/W S/W DARNELL, GAVE ROOM NUMBER, WILLING TO ACCEPTING PATIENT UPON DISCHARGE ORDER, NEED DISCHARGE ORDER. ~~~~~~~~~~~~~FACILITIES FLIGHT CHECK PILOT NOTIFIED~~~~~~~~~
[2019-06-29 16:00] VITALS: BP 127/67
--- NOTE | 2019-06-29 17:28 | NUR ---
*-*DISCHARGE PLANNING*-* PATIENT HAS BEEN REFERRED TO: [facility] P: [phone] S/W SHERICE, ADMISSIONS NOT AVAILABLE
--- NOTE | 2019-06-29 18:31 | Internal Med Progress Note ---
Subjective Date of Service: June 29, 2019 Physician Name Edwards,Roshan Attending Physician Antonio Adrian MD Current Medications Medications (Trade) Dose Ordered Sig/Escobar Route PRN Reason Start Time Stop Time Status Last Admin Dose Admin Acetaminophen (Tylenol) 650 mg Q4H PRN ORAL fever 06/22/19 19:00 07/22/19 18:59 Acetaminophen/ Hydrocodone Bitart (Bradley 10/325) 1 tab Q4H PRN ORAL Severe Pain (Pain Scale 7-10) 06/23/19 16:15 06/30/19 16:14 06/25/19 22:54 Acetaminophen/ Hydrocodone Bitart (Bradley 5/325) 1 tab Q4H PRN ORAL Moderate Pain (Pain Scale 4-6) 06/23/19 16:15 06/30/19 16:14 Amiodarone HCl (Cordarone) 200 mg BIOTEC ORAL 06/22/19 21:00 09/20/19 20:59 06/28/19 20:33 Ceftriaxone Sodium 1 gm/ Dextrose 55 ml @ 110 mls/hr Q24H IVPB 06/26/19 14:00 07/03/19 13:59 06/29/19 13:13 Dextrose (Dextrose 50%) 25 ml Q30M PRN IV Hypoglycemia 06/22/19 19:00 09/20/19 18:59 Dextrose (Dextrose 50%) 50 ml Q30M PRN IV Hypoglycemia 06/22/19 19:00 09/20/19 18:59 Hydroxyzine HCl (Atarax) 25 mg Q8HR PRN ORAL Itching 06/22/19 23:45 07/22/19 23:44 06/23/19 00:05 Metoprolol Tartrate (Lopressor) 50 mg EVERY 12 HOURS ORAL 06/22/19 21:00 09/20/19 20:59 06/29/19 10:15 Mirtazapine (Remeron) 7.5 mg BEDTIME ORAL 06/22/19 21:00 09/20/19 20:59 06/28/19 20:33 Ondansetron HCl (Zofran) 4 mg Q6H PRN IVP Nausea & Vomiting 06/22/19 19:00 07/22/19 18:59 Polyethylene Glycol (Miralax) 17 gm HSPRN PRN ORAL Constipation 06/22/19 19:00 07/22/19 18:59 Zolpidem Tartrate (Ambien) 5 mg HSPRN PRN ORAL Insomnia 06/22/19 19:00 06/29/19 18:59 Allergies: Coded Allergies: No Known Allergies (Unverified , 04/24/18) ROS Limited/Unobtainable: No Constitutional: Reports: no symptoms HEENT: Reports: no symptoms Cardiovascular: Reports: no symptoms Respiratory: Reports: no symptoms Gastrointestinal/Abdominal: Reports: no symptoms Genitourinary: Reports: no symptoms Neurologic/Psychiatric: Reports: no symptoms Subjective 79 YO F admitted with atypical chest pain. Now severe anemia and acute congestive heart failure. Cover for Int Germán-Dr Adrian Objective Last Vital Signs Date Time Temp Pulse Resp B/P (MAP) Pulse Ox O2 Delivery O2 Flow Rate FiO2 06/29/19 16:00 97.7 61 18 127/67 (87) 94 06/29/19 09:00 Room Air Laboratory Tests Test 06/29/19 04:00 White Blood Count 5.6 K/UL (4.8-10.8) Red Blood Count 2.95 M/UL (4.20-5.40) L Hemoglobin 9.0 G/DL (12.0-16.0) L Hematocrit 26.7 % (37.0-47.0) L Mean Corpuscular Volume 90 FL (80-99) Mean Corpuscular Hemoglobin 30.5 PG (27.0-31.0) Mean Corpuscular Hemoglobin Concent 33.7 G/DL (32.0-36.0) Red Cell Distribution Width 18.5 % (11.6-14.8) H Platelet Count 168 K/UL (150-450) Mean Platelet Volume 7.9 FL (6.5-10.1) Neutrophils (%) (Auto) 80.1 % (45.0-75.0) H Lymphocytes (%) (Auto) 14.9 % (20.0-45.0) L Monocytes (%) (Auto) 2.5 % (1.0-10.0) Eosinophils (%) (Auto) 0.6 % (0.0-3.0) Basophils (%) (Auto) 1.9 % (0.0-2.0) Intake and Output 5/17/20 5/18/20 19:00 07:00 Intake Total 100 ml Balance 100 ml Intake Oral 100 ml # Voids 2 Objective PHYSICAL EXAMINATION: GENERAL: The patient is well-developed and well-nourished female, in no apparent distress. HEENT: Eyes, pupils are equal and responsive to light and accommodation. Extraocular movements are intact. NECK: Supple without lymphadenopathy. CHEST: Lungs are clear to auscultation bilaterally without wheezes or rales. CARDIOVASCULAR: Regular rate. S1 and S2 normal without murmurs, rubs, or gallops. ABDOMEN: Soft, nontender, and nondistended. Positive bowel sounds. No evidence of hepatosplenomegaly. Currently, no rebound or guarding noted. EXTREMITIES: Negative for clubbing, cyanosis, or edema. RECTAL/GENITAL: Not performed. NEUROLOGIC: Cranial nerves II through XII are grossly intact without focal deficits. Assessment/Plan Assessment/Plan ASSESSMENT: This is an 79-year-old female. 1. Chest pain. 2. Fall injury. 3. Severe anemia. 4. Atrial fibrillation. 5. Polycythemia vera. 6. Hypertension. 7. Obstructive sleep apnea. 8. Coronary artery disease. 9. Hypercholesterolemia. 10. Congestive heart failure; YMG=[id number] 11. Right pleural effusion TREATMENT: 1. Chest pain. This may be secondary to fall injury. Initial troponin level was negative. Repeat troponin levels are pending. A Cardiology consultation has been obtained with Dr. Mainor Araujo. 2. Severe anemia. The patient has been typed and crossed for 2 units of packed RBCs. Transfuse when available. Severe anemia may be secondary to gastrointestinal hemorrhage, however, the patient denies melena or bright red blood per rectum. 3. Atrial fibrillation. As above, a Cardiology consultation has been obtained with Dr. Mainor Araujo. 4. Polycythemia vera. The patient is currently anemic. 5. Hypertension. Continue metoprolol as above. 6. Obstructive sleep apnea. 7. Coronary artery disease, status post myocardial infarction. As above, a Cardiology consultation has been obtained with Dr. Mainor Araujo. 8. Hypercholesteremia. 9. Congestive heart failure. 10. Pacemaker in situ. Pacemaker check is pending. 11. right thoracentesis pending 11. Discuss with patient regarding discharge planning, wants to go home, refused SNF. 12. CODE STATUS is full code. 13. Broad spectrum antibiotics with Rocephin IV. 14. Monitor cultures and laboratory. 15. DVT prophylaxis: SCD. 16. OOB to chair, PT Mobility 17. Dc Telemetry Roshan Edwards MD June 29, 2019 18:31
--- NOTE | 2019-06-29 19:11 | Cardiology Progress Note ---
Assessment/Plan Assessment/Plan 1. Paroxysmal episodes of atrial fibrillation. 2. Sick sinus syndrome status post pacemaker implantation with generator replacement in July of 2018. 3. Profound anemia. 4. History of polycythemia. 5. Probable urinary tract infection. 6. Fall. 7. Reported history of polycythemia vera. 8. Sleep apnea history. 9. Rib fracture 10 hemothorax hgb stable no cp now ekg atrial paced tele sinus covid neg today will order echo may need ischemi eval pacer chacorta have been checked by dr joshi in office will have him see pt may need further preop testing may need thoracoscopic surgery Subjective Cardiovascular: Denies: chest pain, lightheadedness, palpitations Respiratory: Denies: shortness of breath Genitourinary: Denies: burning Objective Last 24 Hour Vital Signs Date Time Temp Pulse Resp B/P (MAP) Pulse Ox O2 Delivery O2 Flow Rate FiO2 06/29/19 16:00 97.7 61 18 127/67 (87) 94 06/29/19 12:00 98.4 62 18 131/64 (86) 95 06/29/19 10:15 60 144/73 06/29/19 09:00 Room Air 06/29/19 08:00 97.9 60 18 144/73 (96) 96 06/29/19 04:00 98.7 89 20 137/74 (95) 98 06/29/19 00:00 97.4 88 20 128/74 (92) 98 88 06/28/19 21:07 Room Air 06/28/19 20:33 87 139/74 06/28/19 20:00 98.7 79 18 130/74 (92) 98 General Appearance: no apparent distress, alert Neck: supple Cardiovascular: normal rate Respiratory/Chest: lungs clear Abdomen: normal bowel sounds, non tender, soft Extremities: no swelling Intake and Output 06/28/19 06/29/19 19:00 07:00 Intake Total 100 ml Balance 100 ml Intake Oral 100 ml # Voids 2 Laboratory Tests Test 06/29/19 04:00 White Blood Count 5.6 K/UL (4.8-10.8) Red Blood Count 2.95 M/UL (4.20-5.40) L Hemoglobin 9.0 G/DL (12.0-16.0) L Hematocrit 26.7 % (37.0-47.0) L Mean Corpuscular Volume 90 FL (80-99) Mean Corpuscular Hemoglobin 30.5 PG (27.0-31.0) Mean Corpuscular Hemoglobin Concent 33.7 G/DL (32.0-36.0) Red Cell Distribution Width 18.5 % (11.6-14.8) H Platelet Count 168 K/UL (150-450) Mean Platelet Volume 7.9 FL (6.5-10.1) Neutrophils (%) (Auto) 80.1 % (45.0-75.0) H Lymphocytes (%) (Auto) 14.9 % (20.0-45.0) L Monocytes (%) (Auto) 2.5 % (1.0-10.0) Eosinophils (%) (Auto) 0.6 % (0.0-3.0) Basophils (%) (Auto) 1.9 % (0.0-2.0) Mainor Araujo MD June 29, 2019 19:11
--- NOTE | 2019-06-29 19:25 | NUR ---
NURSE NOTES: Received report from IRA Yip. Patient asleep, but easily arousable. Able to verbalize needs. No complaints of pain or discomfort at this time. Skin is intact. IV sites both intact and asymptomatic; flushed. Patient on room air, saturating well. Tested negative for CV19, isolation precautions discontinued. No signs of acute distress or shortness of breath. Bed in lowest position, brakes engaged. Bed rails raised x2. Call light placed within reach. Will continue to monitor.
--- NOTE | 2019-06-29 19:32 | NUR ---
HAND-OFF: Report given to Shanthi ROTH. Pt is awake and stable.
[2019-06-29 20:00] VITALS: BP 129/73
[2019-06-29] MEDS: Amiodarone 200mg tab ORAL SCH (20:55)
[2019-06-30] VITALS (7 sets, daily range): BP systolic 118–136; BP diastolic 59–78
--- NOTE | 2019-06-30 02:30 | NUR ---
HAND-OFF: Report given to IRA Urbina. Patient stable. Belongings accounted for. Orders transferred.
--- NOTE | 2019-06-30 02:45 | NUR ---
NURSE NOTES: Received pt from IRA Maki. Pt transferred to 302-1 from Tele 212-1. Pt in bed, a&ox4, [place]ian speaking, in room air. No s/s of acute distress & no c/o pain at this time. Skin check done with 2nd RN Harley. IV sites intact & S/L'd. Provided BSC. Pt belongings signed & accounted for. Bed in lowest position. Call light within reach. Will continue to monitor.
[2019-06-30] MEDS ORDERED: HYDROcodone/Acetamin 5/325 tab ORAL PRN ×2 (03:00→04:15)
[2019-06-30] MEDS ORDERED: Miralax 17gm pkt ORAL PRN ×3 (03:00→19:00)
[2019-06-30] MEDS ORDERED: HYDROcodone/Acetamin 10/325 tab ORAL PRN ×2 (03:00→04:15)
[2019-06-30] MEDS ORDERED: HydrOXYzine tab 25mg tab ORAL PRN ×2 (03:00→06:00)
[2019-06-30 06:27] LABS: BASOPHILS % (AUTO) 3.4 % (0.0-2.0); EOSINOPHILS % (AUTO) 0.7 % (0.0-3.0); HEMATOCRIT 26.7 % (37.0-47.0); LYMPHOCYTES % (AUTO) 14.5 % (20.0-45.0); MEAN CORPUSCULAR VOLUME 90 FL (80-99); MONOCYTES % (AUTO) 3.1 % (1.0-10.0); NEUTROPHILS % (AUTO) 78.3 % (45.0-75.0); PLATELET COUNT 172 K/UL (150-450); RED BLOOD COUNT 2.97 M/UL (4.20-5.40); WHITE BLOOD COUNT 4.8 K/UL (4.8-10.8)
[2019-06-30 06:40] LABS: ANION GAP 8 mmol/L (5-15); BLOOD UREA NITROGEN 13 mg/dL (7-18); CALCIUM 8.2 MG/DL (8.5-10.1); CARBON DIOXIDE 25 MMOL/L (21-32); CHLORIDE 109 MMOL/L (98-107); CREATININE 0.7 MG/DL (0.55-1.30); POTASSIUM 3.7 MMOL/L (3.5-5.1); SODIUM 142 MMOL/L (136-145)
--- NOTE | 2019-06-30 07:29 | NUR ---
HAND-OFF: Report given to IRA Shi. Pt in stable condition.
--- NOTE | 2019-06-30 07:30 | NUR ---
NURSE NOTES: WALKING ROUNDS DONE WITH OUTGOING RN. PATIENT AWAKE IN BED HAVING BREAKFAST. QUESTIONS ANSWERED, NEEDS MET. DISCUSSED PLAN OF CARE FOR THE DAY. VERBALIZED UNDERSTANDING. BED IN LOW AND LOCKED POSITION, CALL LIGHT WITHIN REACH.
--- NOTE | 2019-06-30 07:53 | NUR ---
RD ASSESSMENT & RECOMMENDATIONS SEE CARE ACTIVITY FOR COMPLETE ASSESSMENT DAILY ESTIMATED NEEDS: Needs based on Cardiac/ 61kg 25-30kcal/kg kcals/kg 2119-9513 total kcals 1-1.2 g protein/kg 61-73 g total protein 20-25 mL/kg 7473-6001 total fluid mLs NUTRITION DIAGNOSIS: Decreased sodium needs r/t cardiac history and clinical status as evidenced by pt w/ CHF, elev BNP (7896-> 1958) CURRENT DIET:REGULAR PO DIET RECOMMENDATIONS: Maintain liberalized regular if w/ continued poor/variable PO ADDITIONAL RECOMMENDATIONS: 1) Calibrated bed scale wts for accurate CBW 2) LOW NA diet w/ PO intake consistently >50% 3) Ensure Enlive (chocolate per pt request) BID w/ meals 4) Monitor for hypoglycemia w/ poor PO- monitor need for added D5 5) MVI x 1 as supplement .
[2019-06-30] MEDS ORDERED: Metoprolol Tartrate 50mg tab ORAL SCH (09:00)
[2019-06-30] MEDS: Metoprolol Tartrate 50mg tab ORAL SCH ×2 (09:23→21:52)
--- NOTE | 2019-06-30 11:39 | Infectious Diseases Prog Note ---
Assessment/Plan Assessment/Plan Assessment: Afebrile No leukocytosis -06/21 u/a wbc 15-20, nit neg, leuk+3; UCx <10 mixed urogenital contaminants Probable PNA- COVID19 neg x1 (overall low suspicion) -06/26 CXR: Pulmonary vascular congestion, similar to mildly increased from the prior exam. No significant change in the small right pleural effusion or subtle infiltrate in the right lung base. -06/25 SARS-COV2 PCR neg -06/23 CXR: Right basilar infiltrate with trace right effusion. s/p Mechanical fall Rib, abdominal pain- 2ry to R rib fractures and large R pleural effusion-? hemothorax -06/25 Chest US: Small right pleural effusion, decreased compared to the prior exam. No significant pocket for thoracentesis. -06/22 Chest US: Positive for right pleural effusion -06/[address]: 1. 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 No acute intracranial pathology is detected. CT C/abd/p:No evidence of acute injury to the abdominal or pelvic viscera. Somewhat limited study due to motion artifact. Cholelithiasis. Acute posterior medial lower right rib fractures. Moderate to large right pleural effusion, possibly containing an element of the hemothorax. Cardiomegaly.ASCVD. No pneumothoraces. Acute on chronic anemia -08/06/18 sp EGD: Normal upper endoscopy, status post biopsy. -path: mild chronic gastritis, no H. pylori identified pAfib hx of rib fractures Sinus node dysfunction s/p PPM (batter exchange July 2018) s/p KELI GERD polycythemia vera HLD MDD anemia NSTEMI s/p normal cardiac catheterization 2019 HTN KELVIN dCHF Plan: -Cont empiric Ceftriaxone #06/15 -ok to dc to SNF off antibiotics -f/u cx -Monitor CBC/CMP, temperatures -aspiration precautions -ok to dc COVID19 isolation Thank you for consulting [facility]. Will contiue to follow along with you. Discussed with RN Subjective Allergies: Coded Allergies: No Known Allergies (Unverified , 04/24/18) Subjective afebrile at RA no leukocytosis Objective Vital Signs Last 24 Hour Vital Signs Date Time Temp Pulse Resp B/P (MAP) Pulse Ox O2 Delivery O2 Flow Rate FiO2 06/30/19 09:23 62 126/65 06/30/19 09:00 Room Air 06/30/19 08:00 98.6 62 18 126/65 (85) 98 06/30/19 04:00 97.7 68 17 136/72 (93) 94 06/30/19 02:45 97.7 61 17 135/66 (89) 92 06/30/19 00:00 97.2 63 18 135/78 (97) 95 06/29/19 21:00 Room Air 06/29/19 20:55 62 129/73 06/29/19 20:00 98.1 62 19 129/73 (91) 92 06/29/19 16:00 97.7 61 18 127/67 (87) 94 06/29/19 12:00 98.4 62 18 131/64 (86) 95 Height (Feet): 5 Height (Inches): 0.00 Weight (Pounds): 140 Objective General Appearance: no acute distress, other - elderly female in NAD HEENT: normocephalic, atraumatic, anicteric Respiratory: decreased breath sounds Cardiovascular: normal rate Abdomen: normal bowel sounds, soft, non tender Extremities: no edema Neurologic: abnormal gait - unsteady, alert, responsive Musculoskeletal: atrophy Laboratory Tests Test 06/30/19 05:45 White Blood Count 4.8 K/UL (4.8-10.8) Red Blood Count 2.97 M/UL (4.20-5.40) L Hemoglobin 9.0 G/DL (12.0-16.0) L Hematocrit 26.7 % (37.0-47.0) L Mean Corpuscular Volume 90 FL (80-99) Mean Corpuscular Hemoglobin 30.3 PG (27.0-31.0) Mean Corpuscular Hemoglobin Concent 33.8 G/DL (32.0-36.0) Red Cell Distribution Width 19.0 % (11.6-14.8) H Platelet Count 172 K/UL (150-450) Mean Platelet Volume 7.7 FL (6.5-10.1) Neutrophils (%) (Auto) 78.3 % (45.0-75.0) H Lymphocytes (%) (Auto) 14.5 % (20.0-45.0) L Monocytes (%) (Auto) 3.1 % (1.0-10.0) Eosinophils (%) (Auto) 0.7 % (0.0-3.0) Basophils (%) (Auto) 3.4 % (0.0-2.0) H Sodium Level 142 MMOL/L (136-145) Potassium Level 3.7 MMOL/L (3.5-5.1) Chloride Level 109 MMOL/L (98-107) H Carbon Dioxide Level 25 MMOL/L (21-32) Anion Gap 8 mmol/L (5-15) Blood Urea Nitrogen 13 mg/dL (7-18) Creatinine 0.7 MG/DL (0.55-1.30) Estimat Glomerular Filtration Rate > 60 mL/min (>60) Glucose Level 78 MG/DL (74-106) Calcium Level 8.2 MG/DL (8.5-10.1) L Pro-B-Type Natriuretic Peptide 1958 pg/mL (0-125) H Current Medications Medications (Trade) Dose Ordered Sig/Escobar Route PRN Reason Start Time Stop Time Status Last Admin Dose Admin Acetaminophen (Tylenol) 650 mg Q4H PRN ORAL fever 06/30/19 03:00 07/22/19 18:59 Amiodarone HCl (Cordarone) 200 mg BIOTEC ORAL 06/30/19 21:00 09/20/19 20:59 Ceftriaxone Sodium 1 gm/ Dextrose 55 ml @ 110 mls/hr Q24H IVPB 06/30/19 14:00 07/03/19 13:59 Dextrose (Dextrose 50%) 25 ml Q30M PRN IV Hypoglycemia 06/30/19 03:00 09/20/19 18:59 Dextrose (Dextrose 50%) 50 ml Q30M PRN IV Hypoglycemia 06/30/19 03:00 09/20/19 18:59 Hydroxyzine HCl (Atarax) 25 mg Q8H PRN ORAL Itching 06/30/19 03:00 07/30/19 02:59 Metoprolol Tartrate (Lopressor) 50 mg EVERY 12 HOURS ORAL 06/30/19 09:00 09/20/19 20:59 06/30/19 09:23 Mirtazapine (Remeron) 7.5 mg BEDTIME ORAL 06/30/19 21:00 07/01/19 02:50 Ondansetron HCl (Zofran) 4 mg Q6H PRN IVP Nausea & Vomiting 06/30/19 03:00 07/01/19 02:59 Polyethylene Glycol (Miralax) 17 gm HSPRN PRN ORAL Constipation 06/30/19 03:00 07/01/19 02:59 Alejandrina Arrieta M.D. June 30, 2019 11:39
--- NOTE | 2019-06-30 12:14 | Cardiac Electrophysiology PN ---
Subjective Subjective Seen, examined and dictated. [id number] My office patient since 2010 pacer by me at [facility] Had Gen change by me at [facility] 2019 PAF. Now off anticoagulation for severe anemia needing transfusion Pacer interrogation today showed Nl Fx Objective Last 24 Hour Vital Signs Date Time Temp Pulse Resp B/P (MAP) Pulse Ox O2 Delivery O2 Flow Rate FiO2 06/30/19 09:23 62 126/65 06/30/19 09:00 Room Air 06/30/19 08:00 98.6 62 18 126/65 (85) 98 06/30/19 04:00 97.7 68 17 136/72 (93) 94 06/30/19 02:45 97.7 61 17 135/66 (89) 92 06/30/19 00:00 97.2 63 18 135/78 (97) 95 06/29/19 21:00 Room Air 06/29/19 20:55 62 129/73 06/29/19 20:00 98.1 62 19 129/73 (91) 92 06/29/19 16:00 97.7 61 18 127/67 (87) 94 Intake and Output 06/29/19 06/30/19 19:00 07:00 Intake Total 55 ml Balance 55 ml IV Total 55 ml # Voids 2 1 Laboratory Tests Test 06/30/19 05:45 White Blood Count 4.8 K/UL (4.8-10.8) Red Blood Count 2.97 M/UL (4.20-5.40) L Hemoglobin 9.0 G/DL (12.0-16.0) L Hematocrit 26.7 % (37.0-47.0) L Mean Corpuscular Volume 90 FL (80-99) Mean Corpuscular Hemoglobin 30.3 PG (27.0-31.0) Mean Corpuscular Hemoglobin Concent 33.8 G/DL (32.0-36.0) Red Cell Distribution Width 19.0 % (11.6-14.8) H Platelet Count 172 K/UL (150-450) Mean Platelet Volume 7.7 FL (6.5-10.1) Neutrophils (%) (Auto) 78.3 % (45.0-75.0) H Lymphocytes (%) (Auto) 14.5 % (20.0-45.0) L Monocytes (%) (Auto) 3.1 % (1.0-10.0) Eosinophils (%) (Auto) 0.7 % (0.0-3.0) Basophils (%) (Auto) 3.4 % (0.0-2.0) H Sodium Level 142 MMOL/L (136-145) Potassium Level 3.7 MMOL/L (3.5-5.1) Chloride Level 109 MMOL/L (98-107) H Carbon Dioxide Level 25 MMOL/L (21-32) Anion Gap 8 mmol/L (5-15) Blood Urea Nitrogen 13 mg/dL (7-18) Creatinine 0.7 MG/DL (0.55-1.30) Estimat Glomerular Filtration Rate > 60 mL/min (>60) Glucose Level 78 MG/DL (74-106) Calcium Level 8.2 MG/DL (8.5-10.1) L Pro-B-Type Natriuretic Peptide 1958 pg/mL (0-125) H River Freitas MD June 30, 2019 12:14
--- NOTE | 2019-06-30 12:59 | Pulmonology Progress Note ---
Subjective ROS Limited/Unobtainable: No Interval Events: no new complains Allergies: Coded Allergies: No Known Allergies (Unverified , 04/24/18) Objective Last 24 Hour Vital Signs Date Time Temp Pulse Resp B/P (MAP) Pulse Ox O2 Delivery O2 Flow Rate FiO2 06/30/19 12:00 97.3 86 21 119/73 (88) 99 06/30/19 09:23 62 126/65 06/30/19 09:00 Room Air 06/30/19 08:00 98.6 62 18 126/65 (85) 98 06/30/19 04:00 97.7 68 17 136/72 (93) 94 06/30/19 02:45 97.7 61 17 135/66 (89) 92 06/30/19 00:00 97.2 63 18 135/78 (97) 95 06/29/19 21:00 Room Air 06/29/19 20:55 62 129/73 06/29/19 20:00 98.1 62 19 129/73 (91) 92 06/29/19 16:00 97.7 61 18 127/67 (87) 94 Intake and Output 06/29/19 06/30/19 19:00 07:00 Intake Total 55 ml Balance 55 ml IV Total 55 ml # Voids 2 1 General Appearance: no acute distress, other - elderly female in NAD HEENT: normocephalic, atraumatic, anicteric Respiratory: decreased breath sounds Cardiovascular: normal rate Abdomen: normal bowel sounds, soft, non tender Genitourinary: normal external genitalia Extremities: no cyanosis, no edema Skin: no rash Neurologic: abnormal gait - unsteady, alert, responsive Musculoskeletal: atrophy Laboratory Tests 06/30/19 05:45: White Blood Count 4.8, Red Blood Count 2.97L, Hemoglobin 9.0L, Hematocrit 26.7L , Mean Corpuscular Volume 90, Mean Corpuscular Hemoglobin 30.3, Mean Corpuscular Hemoglobin Concent 33.8, Red Cell Distribution Width 19.0H, Platelet Count 172, Mean Platelet Volume 7.7, Neutrophils (%) (Auto) 78.3H, Lymphocytes (%) (Auto) 14.5L, Monocytes (%) (Auto) 3.1, Eosinophils (%) (Auto) 0.7, Basophils (%) (Auto) 3.4H, Sodium Level 142, Potassium Level 3.7, Chloride Level 109H, Carbon Dioxide Level 25, Anion Gap 8, Blood Urea Nitrogen 13, Creatinine 0.7, Estimat Glomerular Filtration Rate > 60, Glucose Level 78, Calcium Level 8.2L, Pro-B-Type Natriuretic Peptide 1958H Current Medications Medications (Trade) Dose Ordered Sig/Escobar Route PRN Reason Start Time Stop Time Status Last Admin Dose Admin Acetaminophen (Tylenol) 650 mg Q4H PRN ORAL fever 06/30/19 03:00 07/22/19 18:59 Amiodarone HCl (Cordarone) 200 mg BIOTEC ORAL 06/30/19 21:00 09/20/19 20:59 Ceftriaxone Sodium 1 gm/ Dextrose 55 ml @ 110 mls/hr Q24H IVPB 06/30/19 14:00 07/03/19 13:59 Dextrose (Dextrose 50%) 25 ml Q30M PRN IV Hypoglycemia 06/30/19 03:00 09/20/19 18:59 Dextrose (Dextrose 50%) 50 ml Q30M PRN IV Hypoglycemia 06/30/19 03:00 09/20/19 18:59 Hydroxyzine HCl (Atarax) 25 mg Q8H PRN ORAL Itching 06/30/19 03:00 07/30/19 02:59 Metoprolol Tartrate (Lopressor) 50 mg EVERY 12 HOURS ORAL 06/30/19 09:00 09/20/19 20:59 06/30/19 09:23 Mirtazapine (Remeron) 7.5 mg BEDTIME ORAL 06/30/19 21:00 07/01/19 02:50 Ondansetron HCl (Zofran) 4 mg Q6H PRN IVP Nausea & Vomiting 06/30/19 03:00 07/01/19 02:59 Polyethylene Glycol (Miralax) 17 gm HSPRN PRN ORAL Constipation 06/30/19 03:00 07/01/19 02:59 Assessment/Plan Problems: (1) RLL pneumonia (2) Pleural effusion (3) Chronic anticoagulation (4) Ribs, multiple fractures (5) Atrial fibrillation (6) Pacemaker (7) COPD (chronic obstructive pulmonary disease) (8) KELVIN (obstructive sleep apnea) Assessment/Plan pt agreed with thoracoscopy to wash out the blood because of RLL infiltrate, afebrile, COVID negative heart rate controlled prbc prn symptomatic treatment. Kelly Mejia MD June 30, 2019 12:59
[2019-06-30] MEDS ORDERED: cefTRIAXone 1 GM in D5W 55 ML IVPB SCH (14:00)
--- NOTE | 2019-06-30 14:00 | NUR ---
NURSE NOTES: UNEVENTFUL DAY. VSS.AFEBRILE. USING CALL LIGHT INSTRUCTED. BED IN LOW AND LOCKED POSITION.
--- NOTE | 2019-06-30 14:29 | Cardiology Progress Note ---
Assessment/Plan Assessment/Plan 1. Paroxysmal episodes of atrial fibrillation. 2. Sick sinus syndrome status post pacemaker implantation with generator replacement in July of 2018. 3. Profound anemia. 4. History of polycythemia. 5. Probable urinary tract infection. 6. Fall. 7. Reported history of polycythemia vera. 8. Sleep apnea history. 9. Rib fracture 10 hemothorax 11. Pulmonary htn 71 hgb stable no cp now ekg atrial paced tele sinus covid neg today will order echo may need ischemia eval pacer checked per dr joshi normal fxn on detail questioning pt denies any prior cardiac ischemic event or intervention , no known cad per pt pt need thoracoscopic surgery to clear out her pleural space no signs or sx of chf or acs now his echo shows normal lv function with pulm htn avoid cauterization otherwise will need magnet on [facility] pacer durign surgery to prohibit oversensing that may inhibit pacing the pt is felt to be at low -intermediate risk of perioperative cardiac morbidity post op observation on tele unit pleae Subjective Cardiovascular: Denies: chest pain, lightheadedness, palpitations Respiratory: Denies: cough, shortness of breath, SOB with excertion Gastrointestinal/Abdominal: Denies: abdominal pain Genitourinary: Denies: burning Objective Last 24 Hour Vital Signs Date Time Temp Pulse Resp B/P (MAP) Pulse Ox O2 Delivery O2 Flow Rate FiO2 06/30/19 12:00 97.3 86 21 119/73 (88) 99 06/30/19 09:23 62 126/65 06/30/19 09:00 Room Air 06/30/19 08:00 98.6 62 18 126/65 (85) 98 06/30/19 04:00 97.7 68 17 136/72 (93) 94 06/30/19 02:45 97.7 61 17 135/66 (89) 92 06/30/19 00:00 97.2 63 18 135/78 (97) 95 06/29/19 21:00 Room Air 06/29/19 20:55 62 129/73 06/29/19 20:00 98.1 62 19 129/73 (91) 92 06/29/19 16:00 97.7 61 18 127/67 (87) 94 General Appearance: no apparent distress, alert Neck: supple Cardiovascular: normal rate Respiratory/Chest: lungs clear Abdomen: normal bowel sounds, non tender, soft Extremities: no swelling Intake and Output 06/29/19 06/30/19 19:00 07:00 Intake Total 55 ml Balance 55 ml IV Total 55 ml # Voids 2 1 Laboratory Tests Test 06/30/19 05:45 White Blood Count 4.8 K/UL (4.8-10.8) Red Blood Count 2.97 M/UL (4.20-5.40) L Hemoglobin 9.0 G/DL (12.0-16.0) L Hematocrit 26.7 % (37.0-47.0) L Mean Corpuscular Volume 90 FL (80-99) Mean Corpuscular Hemoglobin 30.3 PG (27.0-31.0) Mean Corpuscular Hemoglobin Concent 33.8 G/DL (32.0-36.0) Red Cell Distribution Width 19.0 % (11.6-14.8) H Platelet Count 172 K/UL (150-450) Mean Platelet Volume 7.7 FL (6.5-10.1) Neutrophils (%) (Auto) 78.3 % (45.0-75.0) H Lymphocytes (%) (Auto) 14.5 % (20.0-45.0) L Monocytes (%) (Auto) 3.1 % (1.0-10.0) Eosinophils (%) (Auto) 0.7 % (0.0-3.0) Basophils (%) (Auto) 3.4 % (0.0-2.0) H Sodium Level 142 MMOL/L (136-145) Potassium Level 3.7 MMOL/L (3.5-5.1) Chloride Level 109 MMOL/L (98-107) H Carbon Dioxide Level 25 MMOL/L (21-32) Anion Gap 8 mmol/L (5-15) Blood Urea Nitrogen 13 mg/dL (7-18) Creatinine 0.7 MG/DL (0.55-1.30) Estimat Glomerular Filtration Rate > 60 mL/min (>60) Glucose Level 78 MG/DL (74-106) Calcium Level 8.2 MG/DL (8.5-10.1) L Pro-B-Type Natriuretic Peptide 1958 pg/mL (0-125) H Mainor Araujo MD June 30, 2019 14:29
[2019-06-30] MEDS: cefTRIAXone 1 GM in D5W 55 ML IVPB SCH (15:03)
--- NOTE | 2019-06-30 16:45 | Internal Med Progress Note ---
Subjective Date of Service: June 30, 2019 Physician Name Roshan Edwards Attending Physician Antonio Adrian MD Current Medications Medications (Trade) Dose Ordered Sig/Escobar Route PRN Reason Start Time Stop Time Status Last Admin Dose Admin Acetaminophen (Tylenol) 650 mg Q4H PRN ORAL fever 06/30/19 03:00 07/22/19 18:59 Amiodarone HCl (Cordarone) 200 mg BIOTEC ORAL 06/30/19 21:00 09/20/19 20:59 Ceftriaxone Sodium 1 gm/ Dextrose 55 ml @ 110 mls/hr Q24H IVPB 06/30/19 14:00 07/03/19 13:59 06/30/19 15:03 Dextrose (Dextrose 50%) 25 ml Q30M PRN IV Hypoglycemia 06/30/19 03:00 09/20/19 18:59 Dextrose (Dextrose 50%) 50 ml Q30M PRN IV Hypoglycemia 06/30/19 03:00 09/20/19 18:59 Hydroxyzine HCl (Atarax) 25 mg Q8H PRN ORAL Itching 06/30/19 03:00 07/30/19 02:59 Metoprolol Tartrate (Lopressor) 50 mg EVERY 12 HOURS ORAL 06/30/19 09:00 09/20/19 20:59 06/30/19 09:23 Mirtazapine (Remeron) 7.5 mg BEDTIME ORAL 06/30/19 21:00 07/01/19 02:50 Ondansetron HCl (Zofran) 4 mg Q6H PRN IVP Nausea & Vomiting 06/30/19 03:00 07/01/19 02:59 Polyethylene Glycol (Miralax) 17 gm HSPRN PRN ORAL Constipation 06/30/19 03:00 07/01/19 02:59 Allergies: Coded Allergies: No Known Allergies (Unverified , 04/24/18) ROS Limited/Unobtainable: No Constitutional: Reports: no symptoms HEENT: Reports: no symptoms Cardiovascular: Reports: no symptoms Respiratory: Reports: no symptoms Gastrointestinal/Abdominal: Reports: no symptoms Genitourinary: Reports: no symptoms Neurologic/Psychiatric: Reports: no symptoms Subjective 79 YO F admitted with atypical chest pain. Now severe anemia and acute congestive heart failure. Cover for Int Med-Dr Adrian. Await thoracoscopy 07/02/19 Objective Last Vital Signs Date Time Temp Pulse Resp B/P (MAP) Pulse Ox O2 Delivery O2 Flow Rate FiO2 06/30/19 16:00 97.7 67 20 131/64 (86) 96 06/30/19 09:00 Room Air Laboratory Tests Test 06/30/19 05:45 White Blood Count 4.8 K/UL (4.8-10.8) Red Blood Count 2.97 M/UL (4.20-5.40) L Hemoglobin 9.0 G/DL (12.0-16.0) L Hematocrit 26.7 % (37.0-47.0) L Mean Corpuscular Volume 90 FL (80-99) Mean Corpuscular Hemoglobin 30.3 PG (27.0-31.0) Mean Corpuscular Hemoglobin Concent 33.8 G/DL (32.0-36.0) Red Cell Distribution Width 19.0 % (11.6-14.8) H Platelet Count 172 K/UL (150-450) Mean Platelet Volume 7.7 FL (6.5-10.1) Neutrophils (%) (Auto) 78.3 % (45.0-75.0) H Lymphocytes (%) (Auto) 14.5 % (20.0-45.0) L Monocytes (%) (Auto) 3.1 % (1.0-10.0) Eosinophils (%) (Auto) 0.7 % (0.0-3.0) Basophils (%) (Auto) 3.4 % (0.0-2.0) H Sodium Level 142 MMOL/L (136-145) Potassium Level 3.7 MMOL/L (3.5-5.1) Chloride Level 109 MMOL/L (98-107) H Carbon Dioxide Level 25 MMOL/L (21-32) Anion Gap 8 mmol/L (5-15) Blood Urea Nitrogen 13 mg/dL (7-18) Creatinine 0.7 MG/DL (0.55-1.30) Estimat Glomerular Filtration Rate > 60 mL/min (>60) Glucose Level 78 MG/DL (74-106) Calcium Level 8.2 MG/DL (8.5-10.1) L Pro-B-Type Natriuretic Peptide 1958 pg/mL (0-125) H Intake and Output 06/29/19 06/30/19 19:00 07:00 Intake Total 55 ml Balance 55 ml IV Total 55 ml # Voids 2 1 Objective PHYSICAL EXAMINATION: GENERAL: The patient is well-developed and well-nourished female, in no apparent distress. HEENT: Eyes, pupils are equal and responsive to light and accommodation. Extraocular movements are intact. NECK: Supple without lymphadenopathy. CHEST: Lungs are clear to auscultation bilaterally without wheezes or rales. CARDIOVASCULAR: Regular rate. S1 and S2 normal without murmurs, rubs, or gallops. ABDOMEN: Soft, nontender, and nondistended. Positive bowel sounds. No evidence of hepatosplenomegaly. Currently, no rebound or guarding noted. EXTREMITIES: Negative for clubbing, cyanosis, or edema. RECTAL/GENITAL: Not performed. NEUROLOGIC: Cranial nerves II through XII are grossly intact without focal deficits. Assessment/Plan Assessment/Plan ASSESSMENT: This is an 79-year-old female. 1. Chest pain. 2. Fall injury. 3. Severe anemia. 4. Atrial fibrillation. 5. Polycythemia vera. 6. Hypertension. 7. Obstructive sleep apnea. 8. Coronary artery disease. 9. Hypercholesterolemia. 10. Congestive heart failure; [id number] 11. Right pleural effusion ?hemothorax TREATMENT: 1. Chest pain. This may be secondary to fall injury. Initial troponin level was negative. Repeat troponin levels are pending. A Cardiology consultation has been obtained with Dr. Mainor Araujo. 2. Severe anemia. The patient has been typed and crossed for 2 units of packed RBCs. Transfuse when available. Severe anemia may be secondary to gastrointestinal hemorrhage, however, the patient denies melena or bright red blood per rectum. 3. Atrial fibrillation. As above, a Cardiology consultation has been obtained with Dr. Mainor Araujo. 4. Polycythemia vera. The patient is currently anemic. 5. Hypertension. Continue metoprolol as above. 6. Obstructive sleep apnea. 7. Coronary artery disease, status post myocardial infarction. As above, a Cardiology consultation has been obtained with Dr. Mainor Araujo. 8. Hypercholesteremia. 9. Congestive heart failure. 10. Pacemaker in situ. Pacemaker check is pending. 11. right thoracentesis pending 11. Discuss with patient regarding discharge planning, wants to go home, refused SNF. 12. CODE STATUS is full code. 13. Broad spectrum antibiotics with Rocephin IV. 14. Monitor cultures and laboratory. 15. DVT prophylaxis: SCD. 16. OOB to chair, PT Mobility 17. Dc Telemetry 18. Await Thoracoscopy 07/02/19; Thoracic surg=Roshan Velez MD June 30, 2019 16:45
--- NOTE | 2019-06-30 19:15 | NUR ---
NURSE NOTES: Received report from IRA Grady. Pt is awake, lying semi-garcia's; comfortably resting. No signs of acute distress noted. AOx4; able to make needs known. Checked IV site; patent and flushed. No erythema, bleeding, or infiltration noted. Bed at lowest position. Brakes and bed alarm on. Call light within reach. Pt agrees to call RN to use the restroom. Will continue to monitor.
--- NOTE | 2019-06-30 19:38 | NUR ---
HAND-OFF: Report given to BUBBA ROTH.
--- NOTE | 2019-06-30 20:29 | Consultation ---
DATE OF CONSULTATION: 06/30/2019 CARDIOLOGY CONSULTATION CONSULTING PHYSICIAN: River Freitas MD. REFERRING PHYSICIAN: Antonio Adrian MD. REASON FOR CONSULTATION: Evaluation of the patient's pacemaker and management of atrial fibrillation. HISTORY OF PRESENT ILLNESS: The patient is a very pleasant 79-year-old lady under my Cardiology care for many years, who is my office patient with history of hypertension and paroxysmal atrial fibrillation, who originally underwent [employer] pacemaker implantation by me in 2010, at [facility]. The patient also had undergone a pacemaker generator change by wy at [place] in July 2018 with a [employer] pacemaker. The patient had episodes of atrial fibrillation and cardiac electrophysiology consultation was requested for further evaluation and management. At the time of my evaluation, the patient denies any chest pain or shortness of breath. It is of note that the patient was admitted for shortness of breath on June 21, 2018, as a result of chest pain. REVIEW OF SYSTEMS: Negative other than what is mentioned in the history of present illness. PAST MEDICAL HISTORY: As mentioned above. FAMILY HISTORY: Noncontributory. SOCIAL HISTORY: Does not smoke or drink alcohol. PHYSICAL EXAMINATION: VITAL SIGNS: Show blood pressure of 126/65, pulse is 62, respirations 18, and temperature 98.6. HEAD AND NECK: Showed no JVD. LUNGS: Coarse rhonchi. CARDIOVASCULAR: Shows regular S1 and S2 with no gallop. ABDOMEN: Soft. EXTREMITIES: No pitting edema. SKIN: The pacemaker in the left subclavian intact. LABORATORY AND DIAGNOSTIC DATA: Labs show white count of 4.8, hemoglobin 9, hematocrit 26, and platelet count of 172,000. Sodium 142, potassium 3.7, BUN of 13, creatinine 0.7, and glucose of 78. BNP is 2600 as well as 2000. Her EKG on June 21 showed atrial fibrillation. Her EKG on June 29 showed atrially paced rhythm. ASSESSMENT AND PLAN: 1. Status post [employer] pacemaker implantation and subsequent generator change by wy. The pacemaker was re-interrogated and showed normal pacemaker function. The patient continues to have episodes of atrial fibrillation. The pacemaker generator change was done by wy on August 04, 2018. 2. Paroxysmal atrial fibrillation with rapid ventricular response. The patient is on amiodarone 200 mg daily as well as metoprolol 50 mg b.i.d., that would be here continued. Currently, the patient is off anticoagulation in view of severe anemia, needing blood transfusion. 3. Chest pain, felt to be musculoskeletal by Dr. Araujo. The patient was ruled out for myocardial infarction. 4. Urinary tract infection. 5. Hypertension. Continue metoprolol at this time. 6. Polycythemia vera, on hydroxyurea. 7. recurrent falls. It is of note that the patient's echocardiogram on 06/26/2019, showed ejection fraction of 55%. 8. Severe pulmonary hypertension. PA pressure of 71. Thank you very much for allowing me to participate in the care of this patient. Please do not hesitate to contact me for any questions regarding my evaluation. River Freitas M.D. DR: Adolph JOB#: [id number] CC:
[2019-06-30] MEDS: Amiodarone 200mg tab ORAL SCH (20:47)
[2019-06-30] MEDS ORDERED: Amiodarone 200mg tab ORAL SCH (21:00)
[2019-07-01] VITALS: BP 123/68
[2019-07-01 04:00] VITALS: BP 136/70
[2019-07-01 06:01] LABS: BASOPHILS % (AUTO) 2.9 % (0.0-2.0); EOSINOPHILS % (AUTO) 0.9 % (0.0-3.0); HEMATOCRIT 24.9 % (37.0-47.0); HEMOGLOBIN 8.5 G/DL (12.0-16.0); LYMPHOCYTES % (AUTO) 17.7 % (20.0-45.0); MEAN CORPUSCULAR VOLUME 90 FL (80-99); MONOCYTES % (AUTO) 3.2 % (1.0-10.0); NEUTROPHILS % (AUTO) 75.4 % (45.0-75.0); PLATELET COUNT 169 K/UL (150-450); RED BLOOD COUNT 2.78 M/UL (4.20-5.40); RED CELL DISTRIBUTION WIDTH 18.2 % (11.6-14.8); WHITE BLOOD COUNT 4.9 K/UL (4.8-10.8)
[2019-07-01 06:37] LABS: ANION GAP 8 mmol/L (5-15); BLOOD UREA NITROGEN 13 mg/dL (7-18); CARBON DIOXIDE 26 MMOL/L (21-32); CHLORIDE 109 MMOL/L (98-107); CREATININE 0.8 MG/DL (0.55-1.30); POTASSIUM 3.8 MMOL/L (3.5-5.1); SODIUM 142 MMOL/L (136-145)
--- NOTE | 2019-07-01 07:30 | NUR ---
NURSE NOTES: WALKING ROUNDS DONE WITH NIGHT RN. PATIENT AWAKE IN BED HAVING BREAKFAST. QUESTIONS ANSWERED, NEEDS MET. DISCUSSED PLAN OF CARE FOR THE DAY, VERBALIZED UNDERSTANDING.UNDERSTANDS HOW TO USE CALL LIGHT FOR ASSISTANCE. RETURN DEMONSTRATION GOOD. BED IN LOW AND LOCKED POSITION WITH BED ALARM ACTIVATED.
--- NOTE | 2019-07-01 07:46 | NUR ---
HAND-OFF: Report given to IRA Grady. Pt is sleeping and in stable condition. Plan of care endorsed.
[2019-07-01 08:00] VITALS: BP 125/63
[2019-07-01] MEDS: Metoprolol Tartrate 50mg tab ORAL SCH ×2 (09:17→21:57)
--- NOTE | 2019-07-01 10:00 | Cardiac Electrophysiology PN ---
Assessment/Plan Assessment/Plan 1. Status post [employer] pacemaker implantation and subsequent generator change by me. The pacemaker was re-interrogated and showed normal pacemaker function. The patient continues to have episodes of atrial fibrillation. The pacemaker generator change was done by me on August 04, 2018. 2. Paroxysmal atrial fibrillation with rapid ventricular response. The patient is on amiodarone 200 mg daily as well as metoprolol 50 mg b.i.d., that would be here continued. Currently, the patient is off anticoagulation in view of severe anemia, needing blood transfusion. 3. Chest pain, felt to be musculoskeletal by Dr. Araujo. The patient was ruled out for myocardial infarction. 4. Urinary tract infection. 5. Hypertension. Continue metoprolol at this time. 6. Polycythemia vera, on hydroxyurea. 7.Recurrent falls. It is of note that the patient's echocardiogram on 06/26/2019, showed ejection fraction of 55%. 8. Severe pulmonary hypertension. PA pressure of 71. 9. Hemothorax. May need VATS. Plse apply Magnet to pacer during surgery. Not pacer dependent DW Dr. Araujo Subjective Subjective Alert in NAD. No CP or SOB Objective Last 24 Hour Vital Signs Date Time Temp Pulse Resp B/P (MAP) Pulse Ox O2 Delivery O2 Flow Rate FiO2 07/01/19 09:17 78 125/63 07/01/19 08:00 97.9 78 18 125/63 (83) 98 07/01/19 04:00 97.7 62 16 136/70 (92) 93 07/01/19 00:00 98.4 67 18 123/68 (86) 92 06/30/19 21:52 62 112/61 06/30/19 21:00 Room Air 06/30/19 20:00 98.0 60 60 118/59 (78) 93 06/30/19 16:00 97.7 67 20 131/64 (86) 96 06/30/19 12:00 97.3 86 21 119/73 (88) 99 Intake and Output 06/30/19 07/01/19 19:00 07:00 Intake Total 1015 ml 200 ml Balance 1015 ml 200 ml Intake Oral 960 ml 200 ml IV Total 55 ml # Voids 4 # Bowel Movements 2 1 Laboratory Tests Test 07/01/19 05:10 White Blood Count 4.9 K/UL (4.8-10.8) Red Blood Count 2.78 M/UL (4.20-5.40) L Hemoglobin 8.5 G/DL (12.0-16.0) L Hematocrit 24.9 % (37.0-47.0) L Mean Corpuscular Volume 90 FL (80-99) Mean Corpuscular Hemoglobin 30.6 PG (27.0-31.0) Mean Corpuscular Hemoglobin Concent 34.1 G/DL (32.0-36.0) Red Cell Distribution Width 18.2 % (11.6-14.8) H Platelet Count 169 K/UL (150-450) Mean Platelet Volume 8.5 FL (6.5-10.1) Neutrophils (%) (Auto) 75.4 % (45.0-75.0) H Lymphocytes (%) (Auto) 17.7 % (20.0-45.0) L Monocytes (%) (Auto) 3.2 % (1.0-10.0) Eosinophils (%) (Auto) 0.9 % (0.0-3.0) Basophils (%) (Auto) 2.9 % (0.0-2.0) H Sodium Level 142 MMOL/L (136-145) Potassium Level 3.8 MMOL/L (3.5-5.1) Chloride Level 109 MMOL/L (98-107) H Carbon Dioxide Level 26 MMOL/L (21-32) Anion Gap 8 mmol/L (5-15) Blood Urea Nitrogen 13 mg/dL (7-18) Creatinine 0.8 MG/DL (0.55-1.30) Estimat Glomerular Filtration Rate > 60 mL/min (>60) Glucose Level 81 MG/DL (74-106) Calcium Level 8.0 MG/DL (8.5-10.1) L Objective HEAD AND NECK: No JVD. LUNGS: Coarse rhonchi. CARDIOVASCULAR: Shows regular S1 and S2 with no gallop. ABDOMEN: Soft. EXTREMITIES: No pitting edema. SKIN: The pacemaker in the left subclavian intact. River Freitas MD July 01, 2019 10:00
--- NOTE | 2019-07-01 11:00 | Internal Med Progress Note ---
Subjective Date of Service: July 01, 2019 Physician Name Roshan Edwards Attending Physician Antonio Adrian MD Current Medications Medications (Trade) Dose Ordered Sig/Escobar Route PRN Reason Start Time Stop Time Status Last Admin Dose Admin Acetaminophen (Tylenol) 650 mg Q4H PRN ORAL fever 06/30/19 03:00 07/22/19 18:59 Amiodarone HCl (Cordarone) 200 mg BIOTEC ORAL 06/30/19 21:00 09/20/19 20:59 06/30/19 20:47 Ceftriaxone Sodium 1 gm/ Dextrose 55 ml @ 110 mls/hr Q24H IVPB 06/30/19 14:00 07/03/19 13:59 06/30/19 15:03 Dextrose (Dextrose 50%) 25 ml Q30M PRN IV Hypoglycemia 06/30/19 03:00 09/20/19 18:59 Dextrose (Dextrose 50%) 50 ml Q30M PRN IV Hypoglycemia 06/30/19 03:00 09/20/19 18:59 Hydroxyzine HCl (Atarax) 25 mg Q8H PRN ORAL Itching 06/30/19 03:00 07/30/19 02:59 Metoprolol Tartrate (Lopressor) 50 mg EVERY 12 HOURS ORAL 06/30/19 09:00 09/20/19 20:59 07/01/19 09:17 Allergies: Coded Allergies: No Known Allergies (Unverified , 04/24/18) ROS Limited/Unobtainable: No Constitutional: Reports: no symptoms HEENT: Reports: no symptoms Cardiovascular: Reports: no symptoms Respiratory: Reports: no symptoms Gastrointestinal/Abdominal: Reports: no symptoms Genitourinary: Reports: no symptoms Neurologic/Psychiatric: Reports: no symptoms Subjective 79 YO F admitted with atypical chest pain. Now severe anemia and acute congestive heart failure. Cover for Int Med-Dr Adrian. Await thoracoscopy 07/02/19 Objective Last Vital Signs Date Time Temp Pulse Resp B/P (MAP) Pulse Ox O2 Delivery O2 Flow Rate FiO2 07/01/19 09:17 78 125/63 07/01/19 09:00 Room Air 07/01/19 08:00 97.9 18 98 Laboratory Tests Test 07/01/19 05:10 White Blood Count 4.9 K/UL (4.8-10.8) Red Blood Count 2.78 M/UL (4.20-5.40) L Hemoglobin 8.5 G/DL (12.0-16.0) L Hematocrit 24.9 % (37.0-47.0) L Mean Corpuscular Volume 90 FL (80-99) Mean Corpuscular Hemoglobin 30.6 PG (27.0-31.0) Mean Corpuscular Hemoglobin Concent 34.1 G/DL (32.0-36.0) Red Cell Distribution Width 18.2 % (11.6-14.8) H Platelet Count 169 K/UL (150-450) Mean Platelet Volume 8.5 FL (6.5-10.1) Neutrophils (%) (Auto) 75.4 % (45.0-75.0) H Lymphocytes (%) (Auto) 17.7 % (20.0-45.0) L Monocytes (%) (Auto) 3.2 % (1.0-10.0) Eosinophils (%) (Auto) 0.9 % (0.0-3.0) Basophils (%) (Auto) 2.9 % (0.0-2.0) H Sodium Level 142 MMOL/L (136-145) Potassium Level 3.8 MMOL/L (3.5-5.1) Chloride Level 109 MMOL/L (98-107) H Carbon Dioxide Level 26 MMOL/L (21-32) Anion Gap 8 mmol/L (5-15) Blood Urea Nitrogen 13 mg/dL (7-18) Creatinine 0.8 MG/DL (0.55-1.30) Estimat Glomerular Filtration Rate > 60 mL/min (>60) Glucose Level 81 MG/DL (74-106) Calcium Level 8.0 MG/DL (8.5-10.1) L Intake and Output 06/30/19 07/01/19 19:00 07:00 Intake Total 1015 ml 200 ml Balance 1015 ml 200 ml Intake Oral 960 ml 200 ml IV Total 55 ml # Voids 4 # Bowel Movements 2 1 Objective PHYSICAL EXAMINATION: GENERAL: The patient is well-developed and well-nourished female, in no apparent distress. HEENT: Eyes, pupils are equal and responsive to light and accommodation. Extraocular movements are intact. NECK: Supple without lymphadenopathy. CHEST: Lungs are clear to auscultation bilaterally without wheezes or rales. CARDIOVASCULAR: Regular rate. S1 and S2 normal without murmurs, rubs, or gallops. ABDOMEN: Soft, nontender, and nondistended. Positive bowel sounds. No evidence of hepatosplenomegaly. Currently, no rebound or guarding noted. EXTREMITIES: Negative for clubbing, cyanosis, or edema. RECTAL/GENITAL: Not performed. NEUROLOGIC: Cranial nerves II through XII are grossly intact without focal deficits. Assessment/Plan Assessment/Plan ASSESSMENT: This is an 79-year-old female. 1. Chest pain. 2. Fall injury. 3. Severe anemia. 4. Atrial fibrillation. 5. Polycythemia vera. 6. Hypertension. 7. Obstructive sleep apnea. 8. Coronary artery disease. 9. Hypercholesterolemia. 10. Congestive heart failure; [id number] 11. Right pleural effusion ?hemothorax TREATMENT: 1. Chest pain. This may be secondary to fall injury. Initial troponin level was negative. Repeat troponin levels are pending. A Cardiology consultation has been obtained with Dr. Mainor Araujo. 2. Severe anemia. The patient has been typed and crossed for 2 units of packed RBCs. Transfuse when available. Severe anemia may be secondary to gastrointestinal hemorrhage, however, the patient denies melena or bright red blood per rectum. 3. Atrial fibrillation. As above, a Cardiology consultation has been obtained with Dr. Mainor Araujo. 4. Polycythemia vera. The patient is currently anemic. 5. Hypertension. Continue metoprolol as above. 6. Obstructive sleep apnea. 7. Coronary artery disease, status post myocardial infarction. As above, a Cardiology consultation has been obtained with Dr. Mainor Araujo. 8. Hypercholesteremia. 9. Congestive heart failure. 10. Pacemaker in situ. Pacemaker check is pending. 11. right thoracentesis pending 11. Discuss with patient regarding discharge planning, wants to go home, refused SNF. 12. CODE STATUS is full code. 13. Broad spectrum antibiotics with Rocephin IV. 14. Monitor cultures and laboratory. 15. DVT prophylaxis: SCD. 16. OOB to chair, PT Mobility 17. Dc Telemetry 18. Await Thoracoscopy 07/02/19; Thoracic surg=Roshan Velez MD July 01, 2019 11:00
[2019-07-01 12:00] VITALS: BP 109/60
--- NOTE | 2019-07-01 12:29 | Pulmonology Progress Note ---
Subjective ROS Limited/Unobtainable: No Interval Events: no new complains Constitutional: Reports: no symptoms Allergies: Coded Allergies: No Known Allergies (Unverified , 04/24/18) Objective Last 24 Hour Vital Signs Date Time Temp Pulse Resp B/P (MAP) Pulse Ox O2 Delivery O2 Flow Rate FiO2 07/01/19 12:00 97.8 62 18 109/60 (76) 94 07/01/19 09:17 78 125/63 07/01/19 09:00 Room Air 07/01/19 08:00 97.9 78 18 125/63 (83) 98 07/01/19 04:00 97.7 62 16 136/70 (92) 93 07/01/19 00:00 98.4 67 18 123/68 (86) 92 06/30/19 21:52 62 112/61 06/30/19 21:00 Room Air 06/30/19 20:00 98.0 60 60 118/59 (78) 93 06/30/19 16:00 97.7 67 20 131/64 (86) 96 Intake and Output 06/30/19 07/01/19 19:00 07:00 Intake Total 1015 ml 200 ml Balance 1015 ml 200 ml Intake Oral 960 ml 200 ml IV Total 55 ml # Voids 4 # Bowel Movements 2 1 General Appearance: no acute distress, other - elderly female in NAD HEENT: normocephalic, atraumatic, anicteric Respiratory: decreased breath sounds Cardiovascular: normal rate Abdomen: normal bowel sounds, soft, non tender Genitourinary: normal external genitalia Extremities: no cyanosis, no edema Skin: no rash Neurologic: abnormal gait - unsteady, alert, responsive Musculoskeletal: atrophy Laboratory Tests 07/01/19 05:10: White Blood Count 4.9, Red Blood Count 2.78L, Hemoglobin 8.5L, Hematocrit 24.9L , Mean Corpuscular Volume 90, Mean Corpuscular Hemoglobin 30.6, Mean Corpuscular Hemoglobin Concent 34.1, Red Cell Distribution Width 18.2H, Platelet Count 169, Mean Platelet Volume 8.5, Neutrophils (%) (Auto) 75.4H, Lymphocytes (%) (Auto) 17.7L, Monocytes (%) (Auto) 3.2, Eosinophils (%) (Auto) 0.9, Basophils (%) (Auto) 2.9H, Sodium Level 142, Potassium Level 3.8, Chloride Level 109H, Carbon Dioxide Level 26, Anion Gap 8, Blood Urea Nitrogen 13, Creatinine 0.8, Estimat Glomerular Filtration Rate > 60, Glucose Level 81, Calcium Level 8.0L Current Medications Medications (Trade) Dose Ordered Sig/Escobar Route PRN Reason Start Time Stop Time Status Last Admin Dose Admin Acetaminophen (Tylenol) 650 mg Q4H PRN ORAL fever 06/30/19 03:00 07/22/19 18:59 Amiodarone HCl (Cordarone) 200 mg BIOTEC ORAL 06/30/19 21:00 09/20/19 20:59 06/30/19 20:47 Ceftriaxone Sodium 1 gm/ Dextrose 55 ml @ 110 mls/hr Q24H IVPB 06/30/19 14:00 07/03/19 13:59 06/30/19 15:03 Dextrose (Dextrose 50%) 25 ml Q30M PRN IV Hypoglycemia 06/30/19 03:00 09/20/19 18:59 Dextrose (Dextrose 50%) 50 ml Q30M PRN IV Hypoglycemia 06/30/19 03:00 09/20/19 18:59 Hydroxyzine HCl (Atarax) 25 mg Q8H PRN ORAL Itching 06/30/19 03:00 07/30/19 02:59 Metoprolol Tartrate (Lopressor) 50 mg EVERY 12 HOURS ORAL 06/30/19 09:00 09/20/19 20:59 07/01/19 09:17 Assessment/Plan Problems: (1) RLL pneumonia (2) Pleural effusion (3) Chronic anticoagulation (4) Ribs, multiple fractures (5) Atrial fibrillation (6) Pacemaker (7) COPD (chronic obstructive pulmonary disease) (8) KELVIN (obstructive sleep apnea) Assessment/Plan pt agreed with thoracoscopy to wash out the blood awaiting surgery because of RLL infiltrate, afebrile, COVID negative heart rate controlled prbc prn symptomatic treatment. Kelly Mejia MD July 01, 2019 12:29
--- NOTE | 2019-07-01 13:25 | Infectious Diseases Prog Note ---
Assessment/Plan Assessment/Plan Assessment: Afebrile No leukocytosis -06/21 u/a wbc 15-20, nit neg, leuk+3; UCx <10 mixed urogenital contaminants Probable PNA- COVID19 neg x1 (overall low suspicion) -06/26 CXR: Pulmonary vascular congestion, similar to mildly increased from the prior exam. No significant change in the small right pleural effusion or subtle infiltrate in the right lung base. -06/25 SARS-COV2 PCR neg -06/23 CXR: Right basilar infiltrate with trace right effusion. s/p Mechanical fall Rib, abdominal pain- 2ry to R rib fractures and large R pleural effusion-? hemothorax -06/25 Chest US: Small right pleural effusion, decreased compared to the prior exam. No significant pocket for thoracentesis. -06/22 Chest US: Positive for right pleural effusion -06/[address]: 1. 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 No acute intracranial pathology is detected. CT C/abd/p:No evidence of acute injury to the abdominal or pelvic viscera. Somewhat limited study due to motion artifact. Cholelithiasis. Acute posterior medial lower right rib fractures. Moderate to large right pleural effusion, possibly containing an element of the hemothorax. Cardiomegaly.ASCVD. No pneumothoraces. Acute on chronic anemia -08/06/18 sp EGD: Normal upper endoscopy, status post biopsy. -path: mild chronic gastritis, no H. pylori identified pAfib hx of rib fractures Sinus node dysfunction s/p PPM (batter exchange July 2018) s/p KELI GERD polycythemia vera HLD MDD anemia NSTEMI s/p normal cardiac catheterization 2019 HTN KELVIN dCHF Plan: -Cont empiric Ceftriaxone #6- will continue until procedure -f/u cx -Monitor CBC/CMP, temperatures -aspiration precautions -ok to dc COVID19 isolation -plan for thorascopy Thank you for consulting [facility]. Will contiue to follow along with you. Discussed with RN Subjective Allergies: Coded Allergies: No Known Allergies (Unverified , 04/24/18) Subjective afebrile at RA no leukocytosis Objective Vital Signs Last 24 Hour Vital Signs Date Time Temp Pulse Resp B/P (MAP) Pulse Ox O2 Delivery O2 Flow Rate FiO2 07/01/19 12:00 97.8 62 18 109/60 (76) 94 07/01/19 09:17 78 125/63 07/01/19 09:00 Room Air 07/01/19 08:00 97.9 78 18 125/63 (83) 98 07/01/19 04:00 97.7 62 16 136/70 (92) 93 07/01/19 00:00 98.4 67 18 123/68 (86) 92 06/30/19 21:52 62 112/61 06/30/19 21:00 Room Air 06/30/19 20:00 98.0 60 60 118/59 (78) 93 06/30/19 16:00 97.7 67 20 131/64 (86) 96 Height (Feet): 5 Height (Inches): 0.00 Weight (Pounds): 133 Objective General Appearance: no acute distress, other - elderly female in NAD HEENT: normocephalic, atraumatic, anicteric Respiratory: decreased breath sounds Cardiovascular: normal rate Abdomen: normal bowel sounds, soft, non tender Extremities: no edema Neurologic: abnormal gait - unsteady, alert, responsive Musculoskeletal: atrophy Laboratory Tests Test 07/01/19 05:10 White Blood Count 4.9 K/UL (4.8-10.8) Red Blood Count 2.78 M/UL (4.20-5.40) L Hemoglobin 8.5 G/DL (12.0-16.0) L Hematocrit 24.9 % (37.0-47.0) L Mean Corpuscular Volume 90 FL (80-99) Mean Corpuscular Hemoglobin 30.6 PG (27.0-31.0) Mean Corpuscular Hemoglobin Concent 34.1 G/DL (32.0-36.0) Red Cell Distribution Width 18.2 % (11.6-14.8) H Platelet Count 169 K/UL (150-450) Mean Platelet Volume 8.5 FL (6.5-10.1) Neutrophils (%) (Auto) 75.4 % (45.0-75.0) H Lymphocytes (%) (Auto) 17.7 % (20.0-45.0) L Monocytes (%) (Auto) 3.2 % (1.0-10.0) Eosinophils (%) (Auto) 0.9 % (0.0-3.0) Basophils (%) (Auto) 2.9 % (0.0-2.0) H Sodium Level 142 MMOL/L (136-145) Potassium Level 3.8 MMOL/L (3.5-5.1) Chloride Level 109 MMOL/L (98-107) H Carbon Dioxide Level 26 MMOL/L (21-32) Anion Gap 8 mmol/L (5-15) Blood Urea Nitrogen 13 mg/dL (7-18) Creatinine 0.8 MG/DL (0.55-1.30) Estimat Glomerular Filtration Rate > 60 mL/min (>60) Glucose Level 81 MG/DL (74-106) Calcium Level 8.0 MG/DL (8.5-10.1) L Current Medications Medications (Trade) Dose Ordered Sig/Escobar Route PRN Reason Start Time Stop Time Status Last Admin Dose Admin Acetaminophen (Tylenol) 650 mg Q4H PRN ORAL fever 06/30/19 03:00 07/22/19 18:59 Amiodarone HCl (Cordarone) 200 mg BIOTEC ORAL 06/30/19 21:00 09/20/19 20:59 06/30/19 20:47 Ceftriaxone Sodium 1 gm/ Dextrose 55 ml @ 110 mls/hr Q24H IVPB 06/30/19 14:00 07/03/19 13:59 06/30/19 15:03 Dextrose (Dextrose 50%) 25 ml Q30M PRN IV Hypoglycemia 06/30/19 03:00 09/20/19 18:59 Dextrose (Dextrose 50%) 50 ml Q30M PRN IV Hypoglycemia 06/30/19 03:00 09/20/19 18:59 Hydroxyzine HCl (Atarax) 25 mg Q8H PRN ORAL Itching 06/30/19 03:00 07/30/19 02:59 Metoprolol Tartrate (Lopressor) 50 mg EVERY 12 HOURS ORAL 06/30/19 09:00 09/20/19 20:59 07/01/19 09:17 Alejandrina Arrieta M.D. July 01, 2019 13:25
[2019-07-01] MEDS: cefTRIAXone 1 GM in D5W 55 ML IVPB SCH (13:37)
--- NOTE | 2019-07-01 14:06 | NUR ---
CASE MANAGEMENT:REVIEW 07/01/19 SI: PLEURAL EFFUSION . COPD . AFIB . CHF FALL W/ RIB FRACTURES. ANEMIA 97.9 78 18 125/63 98% ON RA H/H 8.5/24.9 CA+ 8.0 IS: IV ROCEPHIN Q24 AMIODARONE PO BID LOPRESSOR PO Q12 REMERON PO QHS NORCO PO Q4HRS PRN : 3E MED SURG UNIT DCP: FROM HOME PLAN: ACCORDING TO MD NOTES PATIENT REQUESTING TO GO HOME; NO SNF PLACEMENT NEEDED THORACOSCOPY 07/02/19
[2019-07-01 16:00] VITALS: BP 111/56
--- NOTE | 2019-07-01 18:25 | NUR ---
NURSE NOTES: UNEVENTFUL DAY. PATIENT REMAINS STABLE. AMBULATED TO BATHROOM X1 ASSIST SEVERAL TIMES TODAY. VSS. AFEBRILE. BED IN LOW AND LOCKED POSITION WITH CALL LIGTH WITHIN REACH. BED ALARM ACTIVATED.
--- NOTE | 2019-07-01 19:35 | NUR ---
HAND-OFF: Report given to ANDRE GONZALEZ RN.
[2019-07-01 20:00] VITALS: BP 111/57
[2019-07-01] MEDS ORDERED: Tubing IV Secondary IV ONE (21:05)
[2019-07-01] MEDS ORDERED: NS 275ml ONE (21:05)
--- NOTE | 2019-07-01 21:24 | Cardiology Progress Note ---
Assessment/Plan Assessment/Plan 1. Paroxysmal episodes of atrial fibrillation. 2. Sick sinus syndrome status post pacemaker implantation with generator replacement in July of 2018. 3. Profound anemia. 4. History of polycythemia. 5. Probable urinary tract infection. 6. Fall. 7. Reported history of polycythemia vera. 8. Sleep apnea history. 9. Rib fracture 10 hemothorax 11. Pulmonary htn 71 hgb stable no cp now ekg atrial paced tele sinus covid neg today will order echo may need ischemia eval pacer checked per dr joshi normal fxn on detail questioning pt denies any prior cardiac ischemic event or intervention , no known cad per pt pt need thoracoscopic surgery to clear out her pleural space no signs or sx of chf or acs now his echo shows normal lv function with pulm htn avoid cauterization otherwise will need magnet on lilliam pacer durign surgery to prohibit oversensing that may inhibit pacing the pt is felt to be at low -intermediate risk of perioperative cardiac morbidity post op observation on tele unit please surgery planned for tomorrow Subjective Cardiovascular: Denies: chest pain, lightheadedness, palpitations Respiratory: Denies: cough, shortness of breath Gastrointestinal/Abdominal: Denies: abdominal pain Genitourinary: Denies: burning Objective Last 24 Hour Vital Signs Date Time Temp Pulse Resp B/P (MAP) Pulse Ox O2 Delivery O2 Flow Rate FiO2 07/01/19 16:00 98.2 63 20 111/56 (74) 94 07/01/19 12:00 97.8 62 18 109/60 (76) 94 07/01/19 09:17 78 125/63 07/01/19 09:00 Room Air 07/01/19 08:00 97.9 78 18 125/63 (83) 98 07/01/19 04:00 97.7 62 16 136/70 (92) 93 07/01/19 00:00 98.4 67 18 123/68 (86) 92 06/30/19 21:52 62 112/61 General Appearance: no apparent distress, alert Neck: supple Cardiovascular: normal rate Respiratory/Chest: crackles/rales - base Abdomen: normal bowel sounds, non tender, soft Extremities: no swelling Intake and Output 06/30/19 07/01/19 19:00 07:00 Intake Total 1015 ml 200 ml Balance 1015 ml 200 ml Intake Oral 960 ml 200 ml IV Total 55 ml # Voids 4 # Bowel Movements 2 1 Laboratory Tests Test 07/01/19 05:10 White Blood Count 4.9 K/UL (4.8-10.8) Red Blood Count 2.78 M/UL (4.20-5.40) L Hemoglobin 8.5 G/DL (12.0-16.0) L Hematocrit 24.9 % (37.0-47.0) L Mean Corpuscular Volume 90 FL (80-99) Mean Corpuscular Hemoglobin 30.6 PG (27.0-31.0) Mean Corpuscular Hemoglobin Concent 34.1 G/DL (32.0-36.0) Red Cell Distribution Width 18.2 % (11.6-14.8) H Platelet Count 169 K/UL (150-450) Mean Platelet Volume 8.5 FL (6.5-10.1) Neutrophils (%) (Auto) 75.4 % (45.0-75.0) H Lymphocytes (%) (Auto) 17.7 % (20.0-45.0) L Monocytes (%) (Auto) 3.2 % (1.0-10.0) Eosinophils (%) (Auto) 0.9 % (0.0-3.0) Basophils (%) (Auto) 2.9 % (0.0-2.0) H Sodium Level 142 MMOL/L (136-145) Potassium Level 3.8 MMOL/L (3.5-5.1) Chloride Level 109 MMOL/L (98-107) H Carbon Dioxide Level 26 MMOL/L (21-32) Anion Gap 8 mmol/L (5-15) Blood Urea Nitrogen 13 mg/dL (7-18) Creatinine 0.8 MG/DL (0.55-1.30) Estimat Glomerular Filtration Rate > 60 mL/min (>60) Glucose Level 81 MG/DL (74-106) Calcium Level 8.0 MG/DL (8.5-10.1) Mainor Denton MD July 01, 2019 21:23
[2019-07-01] MEDS: Amiodarone 200mg tab ORAL SCH (21:57)
--- NOTE | 2019-07-01 22:57 | NUR ---
NURSES NOTE: Pt in bed, A/OX4, khmer speaking primarily. No outward s/s of distress noted. IV, R jugular in place, no symptoms of infection noted. Pt aware to use call light for bathroom usage. All due meds will be given, call light within reach. Pt will continue to be monitored. NPO for procedure . Pt aware.
[2019-07-02] VITALS (28 sets, daily range): BP systolic 85–159; BP diastolic 41–78
--- NOTE | 2019-07-02 08:02 | NUR ---
HAND OFF: Report given to IRA Martinez.
--- NOTE | 2019-07-02 08:20 | NUR ---
NURSE NOTES: Received report from Viridiana ROTH. Patient is awake and oriented, no acute distress noted, reporting no pain at this time, no SOB noted. Right EJ intact, asymptomatic. Patient's scheduled for surgery today, consent signed, NPO since midnight. Fall precautions maintained. Patient updated on plan of care for the day. Side rails upx3, bed low and locked, call light within reach, bed alarm armed.
--- NOTE | 2019-07-02 08:43 | NUR ---
NURSE NOTES: Called Dr. Malik to clarify if ok to give patient's 0900 Metoprolol dose with sip of water- NPO order dose not clarify if ok to have sips with meds. Patient's 0800 BP and heart rate reported to MD ELIZABETH ordered to hold AM dose of Metoprolol due to low HR of 61 BPM. Order read back and entered.
[2019-07-02] MEDS: Metoprolol Tartrate 50mg tab ORAL SCH (08:46)
[2019-07-02] MEDS ORDERED: Sterile Talc Powder 4gm spray IPLEURAL ONE (10:00)
[2019-07-02] MEDS ORDERED: Amikacin Rx to dose MISC PRN (10:00)
[2019-07-02] MEDS ORDERED: Cefepime 1gm vial ONE (10:38)
[2019-07-02] MEDS ORDERED: Lidocaine 1% 10mg/ml/Epi 0.005mg/ml 30ml vial INJ ONE (10:38)
--- NOTE | 2019-07-02 11:49 | Pulmonology Progress Note ---
Subjective ROS Limited/Unobtainable: No Interval Events: no new complains Constitutional: Reports: no symptoms HEENT: Repors: no symptoms Respiratory: Reports: no symptoms Allergies: Coded Allergies: No Known Allergies (Unverified , 04/24/18) Objective Last 24 Hour Vital Signs Date Time Temp Pulse Resp B/P (MAP) Pulse Ox O2 Delivery O2 Flow Rate FiO2 07/02/19 09:00 Room Air 07/02/19 08:46 61 07/02/19 08:00 97.7 61 19 124/64 (84) 98 07/02/19 04:00 98.6 66 18 120/59 (79) 93 07/02/19 00:00 98.4 60 16 123/62 (82) 92 07/01/19 21:57 63 111/57 07/01/19 21:00 Room Air 07/01/19 20:00 98.7 63 14 111/57 (75) 93 07/01/19 16:00 98.2 63 20 111/56 (74) 94 07/01/19 12:00 97.8 62 18 109/60 (76) 94 Intake and Output 07/01/19 07/02/19 19:00 07:00 Intake Total 55 ml Balance 55 ml IV Total 55 ml # Voids 4 8 # Bowel Movements 1 1 General Appearance: no acute distress, other - elderly female in NAD HEENT: normocephalic, atraumatic, anicteric Respiratory: chest wall non-tender, decreased breath sounds Cardiovascular: normal rate Abdomen: normal bowel sounds, soft, non tender Genitourinary: normal external genitalia Extremities: no cyanosis, no edema Skin: no rash Neurologic: abnormal gait - unsteady, alert, responsive Musculoskeletal: atrophy Current Medications Medications (Trade) Dose Ordered Sig/Escobar Route PRN Reason Start Time Stop Time Status Last Admin Dose Admin Acetaminophen (Tylenol) 650 mg Q4H PRN ORAL fever 06/30/19 03:00 07/22/19 18:59 Amiodarone HCl (Cordarone) 200 mg BIOTEC ORAL 06/30/19 21:00 09/20/19 20:59 07/01/19 21:57 Ceftriaxone Sodium 1 gm/ Dextrose 55 ml @ 110 mls/hr Q24H IVPB 06/30/19 14:00 07/03/19 13:59 07/01/19 13:37 Dextrose (Dextrose 50%) 25 ml Q30M PRN IV Hypoglycemia 06/30/19 03:00 09/20/19 18:59 Dextrose (Dextrose 50%) 50 ml Q30M PRN IV Hypoglycemia 06/30/19 03:00 09/20/19 18:59 Hydroxyzine HCl (Atarax) 25 mg Q8H PRN ORAL Itching 06/30/19 03:00 07/30/19 02:59 Metoprolol Tartrate (Lopressor) 50 mg EVERY 12 HOURS ORAL 06/30/19 09:00 09/20/19 20:59 07/01/19 21:57 Assessment/Plan Problems: (1) RLL pneumonia (2) Pleural effusion (3) Chronic anticoagulation (4) Ribs, multiple fractures (5) Atrial fibrillation (6) Pacemaker (7) COPD (chronic obstructive pulmonary disease) (8) KELVIN (obstructive sleep apnea) Assessment/Plan pt agreed with thoracoscopy to wash out the blood thoracoscopy is scheduled for today ICU care afterwards awaiting surgery because of RLL infiltrate, afebrile, COVID negative heart rate controlled prbc prn symptomatic treatment. Kelly Mejia MD July 02, 2019 11:49
--- NOTE | 2019-07-02 11:54 | NUR ---
NURSE NOTES: Patient taken to surgery.
[2019-07-02] MEDS ORDERED: LR 1000ml ONE (12:00)
[2019-07-02] MEDS ORDERED: NS Irrig 1000ml ONE (12:00)
[2019-07-02] MEDS ORDERED: Sterile Water Irrig 1000ml IRRIG ONE (12:00)
--- NOTE | 2019-07-02 12:02 | Pre-Procedure Note/Attestation ---
Pre-Procedure Note/Attestation Complete Prior to Procedure Planned Procedure: right Procedure Narrative: Bronchoscopy, right exploratory video-assisted thoracoscopic surgery, possible thoracotomy Indications for Procedure Pre-Operative Diagnosis: Right hemothorax Attestation I attest that I discussed the nature of the procedure; its benefits; risks and complications; and alternatives (and the risks and benefits of such alternatives ), prior to the procedure, with the patient (or the patient's legal provider relations representative). I attest that, if there was a reasonable possibility of needing a blood transfusion, the patient (or the patient's legal provider relations representative) was given the [facility] standardized written summary, pursuant to the Rufus Yuridia Blood Safety Act ([place] Health and Safety Code # 1645, as amended). I attest that I re-evaluated the patient just prior to the surgery and that there has been no change in the patient's H&P, except as documented below: Ezequiel Malik MD July 02, 2019 12:02
[2019-07-02] MEDS ORDERED: Bacitracin 50000 Units Vial ONE ×2 (12:07→12:27)
[2019-07-02] MEDS ORDERED: Rocuronium Bromide 100mg/10ml Inj IV ONE (12:26)
--- NOTE | 2019-07-02 13:13 | Infectious Diseases Prog Note ---
Assessment/Plan Assessment/Plan Assessment: Afebrile No leukocytosis -06/21 u/a wbc 15-20, nit neg, leuk+3; UCx <10 mixed urogenital contaminants Probable PNA- COVID19 neg x1 (overall low suspicion) -06/26 CXR: Pulmonary vascular congestion, similar to mildly increased from the prior exam. No significant change in the small right pleural effusion or subtle infiltrate in the right lung base. -06/25 SARS-COV2 PCR neg -06/23 CXR: Right basilar infiltrate with trace right effusion. s/p Mechanical fall Rib, abdominal pain- 2ry to R rib fractures and large R pleural effusion-? hemothorax -06/25 Chest US: Small right pleural effusion, decreased compared to the prior exam. No significant pocket for thoracentesis. -06/22 Chest US: Positive for right pleural effusion -06/[address]: 1. 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 No acute intracranial pathology is detected. CT C/abd/p:No evidence of acute injury to the abdominal or pelvic viscera. Somewhat limited study due to motion artifact. Cholelithiasis. Acute posterior medial lower right rib fractures. Moderate to large right pleural effusion, possibly containing an element of the hemothorax. Cardiomegaly.ASCVD. No pneumothoraces. Acute on chronic anemia -08/06/18 sp EGD: Normal upper endoscopy, status post biopsy. -path: mild chronic gastritis, no H. pylori identified pAfib hx of rib fractures Sinus node dysfunction s/p PPM (batter exchange July 2018) s/p KELI GERD polycythemia vera HLD MDD anemia NSTEMI s/p normal cardiac catheterization 2019 HTN KELVIN dCHF Plan: -Cont empiric Ceftriaxone #7- will continue until procedure -f/u cx -Monitor CBC/CMP, temperatures -aspiration precautions -ok to dc COVID19 isolation -plan for thorascopy Thank you for consulting [facility]. Will contiue to follow along with you. Discussed with RN Subjective Allergies: Coded Allergies: No Known Allergies (Unverified , 04/24/18) Subjective afebrile at RA no leukocytosis Objective Vital Signs Last 24 Hour Vital Signs Date Time Temp Pulse Resp B/P (MAP) Pulse Ox O2 Delivery O2 Flow Rate FiO2 07/02/19 12:00 97.5 63 19 112/68 (83) 98 07/02/19 09:00 Room Air 07/02/19 08:46 61 07/02/19 08:00 97.7 61 19 124/64 (84) 98 07/02/19 04:00 98.6 66 18 120/59 (79) 93 07/02/19 00:00 98.4 60 16 123/62 (82) 92 07/01/19 21:57 63 111/57 07/01/19 21:00 Room Air 07/01/19 20:00 98.7 63 14 111/57 (75) 93 07/01/19 16:00 98.2 63 20 111/56 (74) 94 Height (Feet): 5 Height (Inches): 0.00 Weight (Pounds): 132 Objective General Appearance: no acute distress, other - elderly female in NAD HEENT: normocephalic, atraumatic, anicteric Respiratory: decreased breath sounds Cardiovascular: normal rate Abdomen: normal bowel sounds, soft, non tender Extremities: no edema Neurologic: abnormal gait - unsteady, alert, responsive Musculoskeletal: atrophy Current Medications Medications (Trade) Dose Ordered Sig/Escobar Route PRN Reason Start Time Stop Time Status Last Admin Dose Admin Acetaminophen (Tylenol) 650 mg Q4H PRN ORAL fever 06/30/19 03:00 07/22/19 18:59 Amiodarone HCl (Cordarone) 200 mg BIOTEC ORAL 06/30/19 21:00 09/20/19 20:59 07/01/19 21:57 Ceftriaxone Sodium 1 gm/ Dextrose 55 ml @ 110 mls/hr Q24H IVPB 06/30/19 14:00 07/03/19 13:59 07/01/19 13:37 Dextrose (Dextrose 50%) 25 ml Q30M PRN IV Hypoglycemia 06/30/19 03:00 09/20/19 18:59 Dextrose (Dextrose 50%) 50 ml Q30M PRN IV Hypoglycemia 06/30/19 03:00 09/20/19 18:59 Hydroxyzine HCl (Atarax) 25 mg Q8H PRN ORAL Itching 06/30/19 03:00 07/30/19 02:59 Metoprolol Tartrate (Lopressor) 50 mg EVERY 12 HOURS ORAL 06/30/19 09:00 09/20/19 20:59 07/01/19 21:57 Alejandrina Arrieta M.D. July 02, 2019 13:13
[2019-07-02] MEDS ORDERED: HYDROcodone/Acetamin 5/325 tab ORAL PRN (13:45)
[2019-07-02] MEDS ORDERED: HYDROcodone/Acetamin 10/325 tab ORAL PRN ×2 (13:45→14:00)
[2019-07-02] MEDS ORDERED: HydrOXYzine tab 25mg tab ORAL PRN (14:00)
--- NOTE | 2019-07-02 14:29 | Diagnostic Imaging Report ---
Procedure: XRAY Chest 1v Reason for study: Shortness of breath. Comparison films: 06/29/2019. FINDINGS: Cardiac pacer remains in place. There is a new right chest tube with the tip at the right apex. No pneumothorax noted. Vascularity is normal. Bilateral alveolar infiltrates noted. The left is increased compared to prior exam. Cardiac and mediastinal silhouette are within normal limits. No large effusion seen. The bony thorax appear unremarkable. IMPRESSION: New right chest tube in place. No pneumothorax. Increased alveolar infiltrates particularly left lung base.
[2019-07-02] MEDS ORDERED: D5 1/2NS w/KCl 20mEq 1,000 ML IV SCH (14:30)
[2019-07-02 14:40] LABS: BASOPHILS % (AUTO) 3.8 % (0.0-2.0); EOSINOPHILS % (AUTO) 0.7 % (0.0-3.0); HEMATOCRIT 28.5 % (37.0-47.0); HEMOGLOBIN 9.2 G/DL (12.0-16.0); LYMPHOCYTES % (AUTO) 31.3 % (20.0-45.0); MEAN CORPUSCULAR VOLUME 91 FL (80-99); NEUTROPHILS % (AUTO) 59.2 % (45.0-75.0); PLATELET COUNT 304 K/UL (150-450); RED BLOOD COUNT 3.12 M/UL (4.20-5.40); RED CELL DISTRIBUTION WIDTH 18.6 % (11.6-14.8); WHITE BLOOD COUNT 8.8 K/UL (4.8-10.8)
[2019-07-02 14:49] LABS: ANION GAP 9 mmol/L (5-15); BLOOD UREA NITROGEN 17 mg/dL (7-18); CALCIUM 8.3 MG/DL (8.5-10.1); CARBON DIOXIDE 27 MMOL/L (21-32); CHLORIDE 106 MMOL/L (98-107); CREATININE 0.8 MG/DL (0.55-1.30); PHOSPHORUS 3.8 MG/DL (2.5-4.9); POTASSIUM 3.9 MMOL/L (3.5-5.1); SODIUM 141 MMOL/L (136-145)
--- NOTE | 2019-07-02 15:00 | NUR ---
NURSE NOTES: Pt received from Sobeida Alcantar PAYROLL DIRECTOR. Report also received from Larry Martinez RN. Pt just arrived from OR accompanied with Travis RT and IRA Vidales. Pt is awake in bed, opens eyes spontaneously and when called by name, able to follow commands and track eyes, bilat pupils 3 mm PERRLA+. VS noted stable and charted (see VS). Pt is A-paced to potline monitor, bilateral radial pulses 2+ and dorsalis pedis pulses 2+. Pt is mechanically intubated with 7.5 ETT noted 23 cm at lip with the following settings: AC 18 TV 400 FiO2 100% Peep 5. SpO2 noted 99-100%. All lung lobes noted diminished upon auscultation. Chest tube present and noted from lateral right chest with dry and intact dressing. Chest tube hooked to wall suction (Low continuous suction- 20 cm H20). Pt denies pain at this time. Abd is soft, non-distended, and non-tender with active bowel sounds to all quadrants. LH 22g IV noted saline locked. Skin is noted with some bruising to bilateral upper extremities- otherwise, intact. Optifoam placed on heels and sacrum for protection. Belongings verified with IRA Martinez and remain at bedside with pt - (including cane and clothing items). Bed in lowest position with alarm on, side rails up x 3, call light within reach. Will continue to monitor.
--- NOTE | 2019-07-02 15:15 | NUR ---
NURSE NOTES: Patient transferred to ICU after surgery. Report given to Jo Ann ROTH. All belongings sent with patient.
--- NOTE | 2019-07-02 15:30 | NUR ---
NURSE NOTES: Pt observed attempting to pull put ETT and chest tube and was placed on ROLL DOUGH DIVIDER restraints. Bilateral wrist noted with intact skin, without redness or edema. Pt educated on restraint care and removal criteria. Will reassess and continue to monitor pt.
[2019-07-02] MEDS: cefTRIAXone 1 GM in D5W 55 ML IVPB SCH (15:35)
[2019-07-02] MEDS: D5 1/2NS w/KCl 20mEq 1,000 ML IV SCH (15:36)
--- NOTE | 2019-07-02 15:36 | Diagnostic Imaging Report ---
Procedure: XRAY Chest 1v Reason for study: Shortness of breath. Status post intubation. Comparison films: 07/02/2019. FINDINGS: There is a new endotracheal tube in good position. Right chest tube remains in place and cardiac pacer also again noted left lung infiltrate not significantly changed. There is much improved aeration of the right lung base. Cardiac and mediastinal silhouette are within normal limits. CP angles are sharp. The bony thorax appear unremarkable. IMPRESSION: New endotracheal tube in good position. Right chest tube unchanged. No pneumothorax. Much improved aeration left lung. No change right lung infiltrates.
--- NOTE | 2019-07-02 16:05 | NUR ---
NURSE NOTES: ABGs relayed to Dr Mejia. telephone order received to keep pt on same vent settings (AC 18 TV 400 FiO2 100% Peep 5)
--- NOTE | 2019-07-02 16:34 | Cardiac Electrophysiology PN ---
Assessment/Plan Assessment/Plan 1. Status post [employer] pacemaker implantation and subsequent generator change by me in 07/2018. The pacemaker was re-interrogated and showed normal pacemaker function. The patient continues to have episodes of atrial fibrillation. 2. Paroxysmal atrial fibrillation with rapid ventricular response. Continue amiodarone 200 mg daily and metoprolol 50 mg b.i.d. Off anticoagulation in view of severe anemia, needing blood transfusion. 3. Chest pain, felt to be musculoskeletal by Dr. Araujo. The patient was ruled out for myocardial infarction.EF on 06/26/2019 was 55% 4. Urinary tract infection. 5. Hypertension. Continue metoprolol at this time. 6. Polycythemia vera, on hydroxyurea. 7. Recurrent falls. . 8. Severe pulmonary hypertension. PA pressure of 71. 9. Hemothorax. S/P VATS today by Dr Malik, on the Vent RILEY RN Subjective Subjective Intubated in ICU on the vent after VATS by Dr Malik Objective Last 24 Hour Vital Signs Date Time Temp Pulse Resp B/P (MAP) Pulse Ox O2 Delivery O2 Flow Rate FiO2 07/02/19 16:00 100 07/02/19 15:24 50 07/02/19 15:03 84 19 100 07/02/19 15:00 100 07/02/19 14:58 98.0 59 15 122/52 99 Mechanical Ventilator 100 07/02/19 14:42 59 19 91/50 99 Mechanical Ventilator 100 07/02/19 14:27 60 17 95/58 99 Mechanical Ventilator 100 07/02/19 14:12 70 16 131/66 95 Mechanical Ventilator 100 07/02/19 14:10 100 07/02/19 14:02 70 15 131/66 72 Mechanical Ventilator 100 07/02/19 13:52 90 15 131/66 72 Simple Mask 15 07/02/19 13:47 90 14 132/65 90 Simple Mask 15 07/02/19 13:42 97.6 64 14 127/68 87 Simple Mask 15 07/02/19 12:00 97.5 63 19 112/68 (83) 98 07/02/19 09:00 Room Air 07/02/19 08:46 61 07/02/19 08:00 97.7 61 19 124/64 (84) 98 07/02/19 04:00 98.6 66 18 120/59 (79) 93 07/02/19 00:00 98.4 60 16 123/62 (82) 92 07/01/19 21:57 63 111/57 07/01/19 21:00 Room Air 07/01/19 20:00 98.7 63 14 111/57 (75) 93 Intake and Output 07/01/19 07/02/19 19:00 07:00 Intake Total 55 ml Balance 55 ml IV Total 55 ml # Voids 4 8 # Bowel Movements 1 1 Laboratory Tests Test 07/02/19 14:30 07/02/19 15:00 White Blood Count 8.8 K/UL (4.8-10.8) # Red Blood Count 3.12 M/UL (4.20-5.40) L Hemoglobin 9.2 G/DL (12.0-16.0) L Hematocrit 28.5 % (37.0-47.0) L Mean Corpuscular Volume 91 FL (80-99) Mean Corpuscular Hemoglobin 29.6 PG (27.0-31.0) Mean Corpuscular Hemoglobin Concent 32.4 G/DL (32.0-36.0) Red Cell Distribution Width 18.6 % (11.6-14.8) H Platelet Count 304 K/UL (150-450) # Mean Platelet Volume 9.2 FL (6.5-10.1) Neutrophils (%) (Auto) 59.2 % (45.0-75.0) Lymphocytes (%) (Auto) 31.3 % (20.0-45.0) Monocytes (%) (Auto) 5.0 % (1.0-10.0) Eosinophils (%) (Auto) 0.7 % (0.0-3.0) Basophils (%) (Auto) 3.8 % (0.0-2.0) H Sodium Level 141 MMOL/L (136-145) Potassium Level 3.9 MMOL/L (3.5-5.1) Chloride Level 106 MMOL/L (98-107) Carbon Dioxide Level 27 MMOL/L (21-32) Anion Gap 9 mmol/L (5-15) Blood Urea Nitrogen 17 mg/dL (7-18) Creatinine 0.8 MG/DL (0.55-1.30) Estimat Glomerular Filtration Rate > 60 mL/min (>60) Glucose Level 223 MG/DL (74-106) #H Calcium Level 8.3 MG/DL (8.5-10.1) L Ionized Calcium (Measured) 1.10 mmol/L (1.10-1.35) Phosphorus Level 3.8 MG/DL (2.5-4.9) Magnesium Level 1.9 MG/DL (1.8-2.4) Arterial Blood pH 7.334 (7.350-7.450) Arterial Blood Partial Pressure CO2 43.1 mmHg (35.0-45.0) Arterial Blood Partial Pressure O2 189.4 mmHg (75.0-100.0) H Arterial Blood HCO3 22.4 mmol/L (22.0-26.0) Arterial Blood Oxygen Saturation 98.7 % (95-100) Arterial Blood Base Excess -3.3 (-2-2) L Efrem Test Positive Microbiology Date/Time Source Procedure Growth Status 07/02/19 14:00 Lung Right Received Objective HEAD AND NECK: Orally intubated LUNGS: Coarse rhonchi.Decreased BS on R CARDIOVASCULAR: Shows regular S1 and S2 with no gallop. ABDOMEN: Soft. EXTREMITIES: No pitting edema. SKIN: The pacemaker in the left subclavian intact. River Freitas MD July 02, 2019 16:34
--- NOTE | 2019-07-02 17:06 | NUR ---
NURSE NOTES: OGT placed- 60 cm at lip line. STAT KUB ordered for placement.
--- NOTE | 2019-07-02 17:12 | Cardiology Progress Note ---
Assessment/Plan Assessment/Plan 1. Paroxysmal episodes of atrial fibrillation. 2. Sick sinus syndrome status post pacemaker implantation with generator replacement in July of 2018. 3. Profound anemia. 4. History of polycythemia. 5. Probable urinary tract infection. 6. Fall. 7. Reported history of polycythemia vera. 8. Sleep apnea history. 9. Rib fracture 10 hemothorax 11. Pulmonary htn 71 s/ vats did nto tolerate extubation post op as sat were low reintubated now in [facility] icu sat 100% on 50% fio2 tele atrial paced v sensed cxrs personally reviewed increased right infiltrate to me tele personally reviewed bp was low earlier post anesthesia but improved with hydration will repeat ekg today and tomorrow bnp in am wean a possible to extubate ef 55% Subjective ROS Limited/Unobtainable: Yes Subjective jung vent is fully awake and responsive but not verbally communicative due t vent Objective Last 24 Hour Vital Signs Date Time Temp Pulse Resp B/P (MAP) Pulse Ox O2 Delivery O2 Flow Rate FiO2 07/02/19 16:38 62 21 50 07/02/19 16:00 100 07/02/19 15:24 50 07/02/19 15:03 84 19 100 07/02/19 15:00 100 07/02/19 14:58 98.0 59 15 122/52 99 Mechanical Ventilator 100 07/02/19 14:42 59 19 91/50 99 Mechanical Ventilator 100 07/02/19 14:27 60 17 95/58 99 Mechanical Ventilator 100 07/02/19 14:12 70 16 131/66 95 Mechanical Ventilator 100 07/02/19 14:10 100 07/02/19 14:02 70 15 131/66 72 Mechanical Ventilator 100 07/02/19 13:52 90 15 131/66 72 Simple Mask 15 07/02/19 13:47 90 14 132/65 90 Simple Mask 15 07/02/19 13:42 97.6 64 14 127/68 87 Simple Mask 15 07/02/19 12:00 97.5 63 19 112/68 (83) 98 07/02/19 09:00 Room Air 07/02/19 08:46 61 07/02/19 08:00 97.7 61 19 124/64 (84) 98 07/02/19 04:00 98.6 66 18 120/59 (79) 93 5/21/20 00:00 98.4 60 16 123/62 (82) 92 07/01/19 21:57 63 111/57 07/01/19 21:00 Room Air 07/01/19 20:00 98.7 63 14 111/57 (75) 93 General Appearance: no apparent distress, alert Cardiovascular: normal rate Respiratory/Chest: crackles/rales - right base , left clear anterirooy Abdomen: normal bowel sounds, non tender, soft Extremities: no swelling - pneumoatic compression stockign inplace Intake and Output 07/01/19 07/02/19 19:00 07:00 Intake Total 55 ml Balance 55 ml IV Total 55 ml # Voids 4 8 # Bowel Movements 1 1 Laboratory Tests Test 07/02/19 14:30 07/02/19 15:00 White Blood Count 8.8 K/UL (4.8-10.8) # Red Blood Count 3.12 M/UL (4.20-5.40) L Hemoglobin 9.2 G/DL (12.0-16.0) L Hematocrit 28.5 % (37.0-47.0) L Mean Corpuscular Volume 91 FL (80-99) Mean Corpuscular Hemoglobin 29.6 PG (27.0-31.0) Mean Corpuscular Hemoglobin Concent 32.4 G/DL (32.0-36.0) Red Cell Distribution Width 18.6 % (11.6-14.8) H Platelet Count 304 K/UL (150-450) # Mean Platelet Volume 9.2 FL (6.5-10.1) Neutrophils (%) (Auto) 59.2 % (45.0-75.0) Lymphocytes (%) (Auto) 31.3 % (20.0-45.0) Monocytes (%) (Auto) 5.0 % (1.0-10.0) Eosinophils (%) (Auto) 0.7 % (0.0-3.0) Basophils (%) (Auto) 3.8 % (0.0-2.0) H Sodium Level 141 MMOL/L (136-145) Potassium Level 3.9 MMOL/L (3.5-5.1) Chloride Level 106 MMOL/L (98-107) Carbon Dioxide Level 27 MMOL/L (21-32) Anion Gap 9 mmol/L (5-15) Blood Urea Nitrogen 17 mg/dL (7-18) Creatinine 0.8 MG/DL (0.55-1.30) Estimat Glomerular Filtration Rate > 60 mL/min (>60) Glucose Level 223 MG/DL (74-106) #H Calcium Level 8.3 MG/DL (8.5-10.1) L Ionized Calcium (Measured) 1.10 mmol/L (1.10-1.35) Phosphorus Level 3.8 MG/DL (2.5-4.9) Magnesium Level 1.9 MG/DL (1.8-2.4) Arterial Blood pH 7.334 (7.350-7.450) Arterial Blood Partial Pressure CO2 43.1 mmHg (35.0-45.0) Arterial Blood Partial Pressure O2 189.4 mmHg (75.0-100.0) H Arterial Blood HCO3 22.4 mmol/L (22.0-26.0) Arterial Blood Oxygen Saturation 98.7 % (95-100) Arterial Blood Base Excess -3.3 (-2-2) L Efrem Test Positive Microbiology Date/Time Source Procedure Growth Status 07/02/19 14:00 Lung Right Received Mainor Araujo MD July 02, 2019 17:12
--- NOTE | 2019-07-02 17:23 | NUR ---
NURSE NOTES: Spoke with Sunday from Radiology- he is aware of STAT KUB and is coming up to unit shortly.
--- NOTE | 2019-07-02 17:25 | NUR ---
NURSE NOTES: Dr Araujo at bedside assessing pt and states OK to place pt on SCDs without venous duplex at this time. Dr Mejia also contacted and was made aware pt had 140 cc of bladder residuals- order received to insert F/C for residuals> 400 cc.
--- NOTE | 2019-07-02 17:59 | Diagnostic Imaging Report ---
EXAM: XR Abdomen, 2 Views CLINICAL HISTORY: TUBE PLACEMENT TECHNIQUE: Frontal view of the abdomen/pelvis with upright view of the abdomen. COMPARISON: Chest radiograph from earlier today. FINDINGS/IMPRESSION: Interval placement of enteric tube. The tip and sidehole project within the gastric body. Surgical clips to the lower abdomen. Mild fecal retention.
--- NOTE | 2019-07-02 18:07 | Internal Med Progress Note ---
Subjective Date of Service: July 02, 2019 Physician Name Roshan Edwards Attending Physician Antonio Adrian MD Current Medications Medications (Trade) Dose Ordered Sig/Escobar Route PRN Reason Start Time Stop Time Status Last Admin Dose Admin Acetaminophen (Tylenol) 650 mg Q4H PRN ORAL T>100.5 07/02/19 14:00 07/22/19 13:59 Acetaminophen/ Hydrocodone Bitart ([place] 10/325) 1 tab Q4H PRN ORAL Severe Pain (Pain Scale 7-10) 07/02/19 14:00 07/09/19 13:59 Acetaminophen/ Hydrocodone Bitart ([place] 5/325) 1 tab Q4H PRN ORAL Moderate Pain (Pain Scale 4-6) 07/02/19 15:00 07/09/19 14:59 Amiodarone HCl (Cordarone) 200 mg QHS ORAL 07/02/19 21:00 09/30/19 20:59 Ceftriaxone Sodium 1 gm/ Dextrose 55 ml @ 110 mls/hr Q24H IVPB 07/02/19 14:00 07/03/19 13:59 07/02/19 15:35 Dextrose (Dextrose 50%) 25 ml Q30M PRN IV Hypoglycemia 07/02/19 14:00 09/20/19 18:59 Dextrose (Dextrose 50%) 50 ml Q30M PRN IV Hypoglycemia 07/02/19 14:00 09/20/19 18:59 Dextrose/ Electrolytes 1,000 ml @ 75 mls/hr [id number] IV 07/02/19 14:30 08/01/19 14:29 07/02/19 15:36 Hydroxyzine HCl (Atarax) 25 mg Q8H PRN ORAL Itching 07/02/19 14:00 07/30/19 13:59 Metoprolol Tartrate (Lopressor) 25 mg EVERY 12 HOURS ORAL 07/02/19 21:00 09/30/19 20:59 Allergies: Coded Allergies: No Known Allergies (Unverified , 04/24/18) ROS Limited/Unobtainable: Yes Subjective 79 YO F admitted with atypical chest pain. Now severe anemia and acute congestive heart failure. Cover for Int Germán-Dr Adrian. S/P video assisted thoracoscopic exploratory surgery 07/02/19. Intubated and sedated. ICU Objective Last Vital Signs Date Time Temp Pulse Resp B/P (MAP) Pulse Ox O2 Delivery O2 Flow Rate FiO2 07/02/19 17:30 63 21 138/68 (91) 100 07/02/19 17:00 50 07/02/19 16:00 98.2 07/02/19 16:00 Mechanical Ventilator Mechanical Ventilator 07/02/19 13:52 15 Laboratory Tests Test 07/02/19 14:30 07/02/19 15:00 White Blood Count 8.8 K/UL (4.8-10.8) # Red Blood Count 3.12 M/UL (4.20-5.40) L Hemoglobin 9.2 G/DL (12.0-16.0) L Hematocrit 28.5 % (37.0-47.0) L Mean Corpuscular Volume 91 FL (80-99) Mean Corpuscular Hemoglobin 29.6 PG (27.0-31.0) Mean Corpuscular Hemoglobin Concent 32.4 G/DL (32.0-36.0) Red Cell Distribution Width 18.6 % (11.6-14.8) H Platelet Count 304 K/UL (150-450) # Mean Platelet Volume 9.2 FL (6.5-10.1) Neutrophils (%) (Auto) 59.2 % (45.0-75.0) Lymphocytes (%) (Auto) 31.3 % (20.0-45.0) Monocytes (%) (Auto) 5.0 % (1.0-10.0) Eosinophils (%) (Auto) 0.7 % (0.0-3.0) Basophils (%) (Auto) 3.8 % (0.0-2.0) H Sodium Level 141 MMOL/L (136-145) Potassium Level 3.9 MMOL/L (3.5-5.1) Chloride Level 106 MMOL/L (98-107) Carbon Dioxide Level 27 MMOL/L (21-32) Anion Gap 9 mmol/L (5-15) Blood Urea Nitrogen 17 mg/dL (7-18) Creatinine 0.8 MG/DL (0.55-1.30) Estimat Glomerular Filtration Rate > 60 mL/min (>60) Glucose Level 223 MG/DL (74-106) #H Calcium Level 8.3 MG/DL (8.5-10.1) L Ionized Calcium (Measured) 1.10 mmol/L (1.10-1.35) Phosphorus Level 3.8 MG/DL (2.5-4.9) Magnesium Level 1.9 MG/DL (1.8-2.4) Arterial Blood pH 7.334 (7.350-7.450) Arterial Blood Partial Pressure CO2 43.1 mmHg (35.0-45.0) Arterial Blood Partial Pressure O2 189.4 mmHg (75.0-100.0) H Arterial Blood HCO3 22.4 mmol/L (22.0-26.0) Arterial Blood Oxygen Saturation 98.7 % (95-100) Arterial Blood Base Excess -3.3 (-2-2) L Efrem Test Positive Microbiology Date/Time Source Procedure Growth Status 07/02/19 14:00 Lung Right Received Intake and Output 07/01/19 07/02/19 19:00 07:00 Intake Total 55 ml Balance 55 ml IV Total 55 ml # Voids 4 8 # Bowel Movements 1 1 Objective PHYSICAL EXAMINATION: GENERAL: The patient is well-developed and well-nourished female, in no apparent distress. HEENT: Eyes, pupils are equal and responsive to light and accommodation. Extraocular movements are intact. NECK: Supple without lymphadenopathy. CHEST: Mech Vent; Lungs with coarse upper airway sounds without wheezes or rales. CARDIOVASCULAR: Regular rate. S1 and S2 normal without murmurs, rubs, or gallops. ABDOMEN: Soft, nontender, and nondistended. Positive bowel sounds. No evidence of hepatosplenomegaly. Currently, no rebound or guarding noted. EXTREMITIES: Negative for clubbing, cyanosis, or edema. RECTAL/GENITAL: Not performed. NEUROLOGIC: Cranial nerves II through XII are grossly intact without focal deficits. Assessment/Plan Assessment/Plan ASSESSMENT: This is an 79-year-old female. 1. Chest pain. 2. Fall injury. 3. Severe anemia. 4. Atrial fibrillation. 5. Polycythemia vera. 6. Hypertension. 7. Obstructive sleep apnea. 8. Coronary artery disease. 9. Hypercholesterolemia. 10. Congestive heart failure; [id number] 11. Right pleural effusion ?hemothorax TREATMENT: 1. Chest pain. This may be secondary to fall injury. Initial troponin level was negative. Repeat troponin levels are pending. A Cardiology consultation has been obtained with Dr. Mainor Araujo. 2. Severe anemia. The patient has been typed and crossed for 2 units of packed RBCs. Transfuse when available. Severe anemia may be secondary to gastrointestinal hemorrhage, however, the patient denies melena or bright red blood per rectum. 3. Atrial fibrillation. As above, a Cardiology consultation has been obtained with Dr. Mainor Araujo. 4. Polycythemia vera. The patient is currently anemic. 5. Hypertension. Continue metoprolol as above. 6. Obstructive sleep apnea. 7. Coronary artery disease, status post myocardial infarction. As above, a Cardiology consultation has been obtained with Dr. Manior Araujo. 8. Hypercholesteremia. 9. Congestive heart failure. 10. Pacemaker in situ. Pacemaker check is pending. 11. right thoracentesis pending 11. Discuss with patient regarding discharge planning, wants to go home, refused SNF. 12. CODE STATUS is full code. 13. Broad spectrum antibiotics with Rocephin IV. 14. Monitor cultures and laboratory. 15. DVT prophylaxis: SCD. 16. OOB to chair, PT Mobility 17. Dc Telemetry 18. S/P video assisted Thoracoscopic exploratory surgery 07/02/19; Thoracic surg=Dr. Malik 19. ICU status Roshan Edwards MD July 02, 2019 18:07
--- NOTE | 2019-07-02 19:00 | NUR ---
NURSE NOTES: Received order from Dr. Mejia to start weaning pt off ventilator at this time. RT Fabi notified. Addendum: 07/02/19 at 1911 by Jo Ann Turner RN NURSE NOTES: Late entry: bladder scan performed: 165 cc urine residuals noted.
--- NOTE | 2019-07-02 19:12 | NUR ---
HAND-OFF: Report given to IRA Westfall.
--- NOTE | 2019-07-02 19:17 | NUR ---
NURSE NOTES: Pt pulled out OGT despite having secured restraints on- pt was able to flex back, lean forward and pull out tube. Khoi, RN made aware and will reattempt OGT insertion. RT at bedside at this time weaning pt.
--- NOTE | 2019-07-02 19:23 | NUR ---
RESPIRATORY NOTE: Received pt on AC 18, 400VT, 50%, PEEP +5. Pt intubated w/ ETT 7.5 @ 23cm lipline, secured by anchorfast. Pt alert/awake, occasionally follows commands. B/S imelda. diminished, sxn scant amounts of thin, clear to pale-yellow secretions. Per MD Roberto, he wants to wean pt now to see if we can extubate pt. Pt now on SIMV 18, 400VT, 40%, PEEP +5, PS 10. Pt tolerating new settings. ABG to be drawn in an hour. Vent plugged into red outlet, ambubag at bedside. Pt in no apparent distress at this time. Will continue to monitor pt.
--- NOTE | 2019-07-02 19:45 | NUR ---
NURSE NOTES: LE: PATIENT AWOKE, DENIED PAIN AT THIS TIME, ON ETT TO VENT, SIMV18/PS10/ML4701/FIO2 40%/PEEP5, O2 SATURATION 100% NOTED, REMOVED OGT BY THE PATIENT, ABDOMEN SOFT, CHEST TUBE TO RIGHT SIDE, ON LOWER CONTINUE SUCTION, SEROSANGUINEOUS DRAINING WELL, CLEANED AND DRIED CHEST TUBE SITE DRESSING, NO BLADDER DISTENTION NOTED, PPL TO LEFT HAND AND RIGHT WRIST, INTACT AND PATENT, ONGOING D5W 1/2NS W/KCL 20MEQ AT 75ML/HR VIA PPL, 2 POINT SOFT RESTRAINTS STATUS, ON BED ALARM AND LOCKED, LOWER BED POSITION, PROVIDED CALL LIGHT WITHIN REACH, WILL CONTINUE TO MONITOR.
--- NOTE | 2019-07-02 20:15 | Operative Note - Dictated ---
DATE OF OPERATION: 07/02/2019 SURGEON: zEequiel Malik MD. HUMAN RESOURCE ANALYST SURGEON: Errol Estrada MD. PREOPERATIVE DIAGNOSIS: Right hemothorax. POSTOPERATIVE DIAGNOSIS: Right hemothorax. PROCEDURE PERFORMED: 1. Flexible bronchoscopy. 2. Right video-assisted thoracoscopic surgery. 3. Intrapleural pneumolysis. 4. Evacuation of right intrathoracic blood. 5. Intercostal nerve block. ANESTHESIA: Double-lumen general anesthesia. INDICATION: Patient is an 79-year-old female, status post fall, sustained fourth right-sided fracture rib associated with right hemothorax. She was taken to the operating room for definitive surgical care. The risks and benefits of the proposed operation were explained to the patient in detail including, but not limited to, bleeding, infection, persistent air leak, anesthetic complication, and of less than 1%. In addition, alternative versus no treatment options were also discussed. Patient fully understands the rationale behind the proposed operation. All questions answered to her satisfaction. DESCRIPTION OF PROCEDURE: After obtaining informed consent, patient was brought to the operating room, placed in supine position, and surgical time-out was performed. After induction of general anesthesia, an arterial line, and CHRISTO hose stockings were placed. A flexible bronchoscope was introduced through the endotracheal tube. The trachea and david were inspected. The david was midline sharp. The right tracheobronchial tree down to the subsegmental level was grossly normal and no endobronchial lesions were seen. Similarly, the left mainstem bronchus was intubated and no endobronchial lesions were visualized at the subsegmental level. Minimal amount of mucopurulent secretion was lavaged and suctioned clear. The bronchoscope was pulled back and removed. Patient tolerated procedure well with oxygen saturation greater than 96% throughout the procedure. Next, patient was then placed in a left lateral decubitus position and then prepped and draped in the usual sterile fashion. Patient also received preoperative intravenous antibiotic. A 1.5 cm incision was made at the fifth intercostal space in the midaxillary line. Dissection was then carried out into the subcutaneous tissue. Entry into the right hemithorax was uneventful. Passing the Yankauer into the right hemithorax yielded roughly 150 mL of bloody effusion; a underwriting sales representative section was submitted for microbiology analysis and remaining was submitted to pathology. After placement of a Thoracoport as was the video camera into the right hemithorax, we then began to visualize the entire right intrathoracic cavity. There was noted to be some adhesions and these adhesions were taken down using a combination of sharp and blunt electrocauterization. After freeing the lung from the surrounding chest wall, we then began to examine the parietal pleura. There was noted to be no protrusion of any fractured ribs into the intrathoracic cavity as the entire parietal pleura appears to be intact. The lung was examined systematically in the right upper lobe anteriorly and then this was carried out posterolaterally. Similarly, the middle lobe as was the lower lobe was also examined and found to have no evidence of gross abnormality. The diaphragmatic surface was also examined and found to be free of injury. At this point, the chest was then copiously irrigated with 5 L of bacitracin containing antibiotic solution. After suctioning, the intercostal nerve block with 40 mL of 0.25% Marcaine was administered from the second to eighth intercostal space in the usual fashion. A 28-Tu[place] chest tube inserted into the right hemithorax and directly at the apex. The lung was allowed to inflate under direct visualization and the video camera was then removed. The chest tube was anchored at the skin level using 0 Ethibond sutures x2. The chest was then connected to a suction Pleur-evac. The wound was reapproximated with 3-0 Vicryl suture in 2 layers. The skin was reapproximated with 4-0 Monocryl. Steri-Strips and dry dressing was applied. Patient tolerated procedure well without any complications. Needle and sponges were correct at the end of the operation. She was then extubated and transported to the recovery room in a satisfactory condition. EBL: Minimal. COMPLICATIONS: None. SPECIMEN SUBMITTED: Right pleural effusion for microbiologic analysis and pathology. Kraft M.D. DR: FRANSICO JOB#: [id number] CC: NAKITA
--- NOTE | 2019-07-02 20:45 | NUR ---
NURSE NOTES: CALLED DR. CHIU REGARDING ABG'S RESULT THAT LEFT MESSAGE.
[2019-07-02] MEDS ORDERED: Metoprolol Tartrate 50mg tab ORAL SCH (21:00)
--- NOTE | 2019-07-02 22:13 | NUR ---
NURSE NOTES: INSERTED NGT AND KUB WAS DONE, NO N/V, KEPT HOB 30 DEGREES, WILL CONTINUE TO MONITOR.
--- NOTE | 2019-07-02 22:29 | Diagnostic Imaging Report ---
EXAM: XR Abdomen, 2 Views CLINICAL HISTORY: Nasogastric tube TECHNIQUE: Frontal view of the abdomen/pelvis with upright view of the abdomen. COMPARISON: 07/02/19 at 1726 hrs. FINDINGS/IMPRESSION; Grossly stable positioning of enteric tube with tip and sidehole projecting in the gastric body.
[2019-07-02] MEDS: HYDROcodone/Acetamin 5/325 tab ORAL PRN (22:46)
[2019-07-02] MEDS: Amiodarone 200mg tab ORAL SCH (22:47)
--- NOTE | 2019-07-02 22:59 | NUR ---
RESPIRATORY NOTE: Pt placed back on previous AC setting to let her rest for the night. Per MD Roberto, wean again tomorrow morning. Pt now back on AC 18, 400VT, 40%, PEEP +5. Pt resting comfortably, in no apparent distress at this time. Will continue to monitor pt.
[2019-07-03] VITALS (24 sets, daily range): BP systolic 95–155; BP diastolic 52–82
--- NOTE | 2019-07-03 00:10 | NUR ---
NURSE NOTES: LE: PATIENT ASLEEP ON AND OFF, SUCTIONED, NO DISCHARGE OUTED, CHEST TUBE INTACT AND PATENT, SEROSANGUINEOUS DISCHARGE OUTED ON LOWER CONTINUOS SUCTION, SECURED RESTRAINTS AT THIS TIME.
--- NOTE | 2019-07-03 00:45 | NUR ---
NURSE NOTES: CALLED BACK FROM DR. CHIU, RECEIVED NEW ORDER AND CARRIED OUT.
[2019-07-03] MEDS: LORazepam Inj 2mg/ml 1ml IV PRN (00:55)
--- NOTE | 2019-07-03 00:55 | NUR ---
NURSE NOTES: LE; PATIENT AWOKE, AGITATED, TRIED TO REMOVE ENDOTUBE, GIVEN ATIVAN 2MG BY IVP SLOWLY PRN ORDER, WILL CONTINUE TO MONITOR.
--- NOTE | 2019-07-03 02:24 | NUR ---
NURSE NOTES: PATIENT ASLEEP STATUS, NO PAIN OR SOB NOTED AT THIS TIME, WILL CONTINUE PLAN OF CARE.
[2019-07-03] MEDS: D5 1/2NS w/KCl 20mEq 1,000 ML IV SCH (03:23)
--- NOTE | 2019-07-03 04:10 | NUR ---
NURSE NOTES: LE: MORNING CARE AND ORAL CARE WAS DONE, NO BM STATS.
--- NOTE | 2019-07-03 04:40 | NUR ---
NURSE NOTES: LE; PATIENT AGITATED, TRIED TO OUT OF BED, SECURED RESTRAINTS AND WILL CONTINUE TO MONITOR.
[2019-07-03 05:36] LABS: HEMATOCRIT 23.4 % (37.0-47.0); HEMOGLOBIN 7.9 G/DL (12.0-16.0); MEAN CORPUSCULAR VOLUME 90 FL (80-99); PLATELET COUNT 171 K/UL (150-450); RED BLOOD COUNT 2.59 M/UL (4.20-5.40); RED CELL DISTRIBUTION WIDTH 19.3 % (11.6-14.8); WHITE BLOOD COUNT 6.8 K/UL (4.8-10.8)
[2019-07-03 05:54] LABS: ALANINE AMINOTRANSFERASE 9 U/L (12-78); ALBUMIN 2.6 G/DL (3.4-5.0); ALBUMIN/GLOBULIN RATIO 0.8 (1.0-2.7); ALKALINE PHOSPHATASE 52 U/L (46-116); ANION GAP 10 mmol/L (5-15); ASPARTATE AMINO TRANSFERASE 12 U/L (15-37); BILIRUBIN,TOTAL 0.3 MG/DL (0.2-1.0); BLOOD UREA NITROGEN 20 mg/dL (7-18); CALCIUM 7.7 MG/DL (8.5-10.1); CARBON DIOXIDE 24 MMOL/L (21-32); CHLORIDE 107 MMOL/L (98-107); CREATININE 0.8 MG/DL (0.55-1.30); POTASSIUM 4.2 MMOL/L (3.5-5.1); SODIUM 141 MMOL/L (136-145)
--- NOTE | 2019-07-03 06:22 | NUR ---
NURSE NOTES: PATIENT ASLEEP STATUS, NO PAIN OR SOB NOTED AT THIS TIME.
--- NOTE | 2019-07-03 07:06 | NUR ---
HAND-OFF: Report given to IRA RIVAS.
--- NOTE | 2019-07-03 07:07 | NUR ---
NURSE NOTES: Pt received from [facility]. Pt is awake in bed, opens eyes spontaneously and when called by name, able to follow commands and track eyes, bilat pupils 3 mm PERRLA+. Pt is A-paced to awake overnight monitor, bilateral radial pulses 2+ and dorsalis pedis pulses 2+. Pt is mechanically intubated with 7.5 ETT noted 23 cm at lip with the following settings: SIMV PS10 FiO2 % 40 Peep 5. SpO2 noted 100%. All lung lobes noted diminished upon auscultation. Chest tube present and noted from lateral right chest with dry and intact dressing Pt denies pain at this time. Abd is soft, non-distended, and non-tender with active bowel sounds to all quadrants. LH 22g IV noted running D5 1/2 NS with 20 meQ KCL at 75 cc/hr and a RW 22g IV running NS TKO at 5 cc/hr. Skin is noted with some bruising to bilateral upper extremities- otherwise, intact. Optifoam placed on heels and sacrum for protection. Pt is on ASSISTANT IN NURSING restraints; skin to both wrists intact without edema or redness- pt observed attempting to pull out ETT and chest tube. Bed in lowest position with alarm on, side rails up x 3, call light within reach. Will continue to monitor.
--- NOTE | 2019-07-03 07:45 | NUR ---
NURSE NOTES: Spoke with Dr Mejia about recent most- ABG results. Order received to extubate pt. Zakia RT notified.
--- NOTE | 2019-07-03 08:47 | NUR ---
NURSE NOTES: Received telephone orders from Dr. Malik: "give pt some orange juice in high garcia position right after extubation and if tolerated, proceed with a regular diet- Cancel ST eval for today". CXR and labs ordered for tomorrow morning as well. Addendum: 07/03/19 at 0848 by Jo Ann Turner RN NURSE NOTES: Late entry: give 2g Magnesium sulfate IV now per Dr Malik. order placed.
--- NOTE | 2019-07-03 08:55 | NUR ---
RESPIRATORY NOTE: Pt extubated per Dr. Mejia's order. Pt is tolerating well. NO SOB or resp distress noted. Placed pt on 2L NC with humidifier 28%, sat 100%, HR 69bpm, RR 18bpm. Will continue to monitor.
--- NOTE | 2019-07-03 08:55 | NUR ---
NURSE NOTES: Pt successfully extubated and placed on 2L O2 via NC with humidification. Pt in no distress at this time. SpO2 100% HR 70 BP 131/61. Will continue to monitor.
--- NOTE | 2019-07-03 09:09 | NUR ---
PT NOTE Physical therapy placed on hold due to patient's transfer to ICU. Nursing notified that a new MD order is needed to resume PT treatment. Will follow.
[2019-07-03] MEDS: HYDROcodone/Acetamin 5/325 tab ORAL PRN ×2 (09:12→20:24)
--- NOTE | 2019-07-03 09:24 | NUR ---
CASE MANAGEMENT: REVIEW 07/03/2019 SI:MULTIPLE RIB FRACTURES. PLEURAL EFFUSION. VS: T 98.3 HR 66 RR 19 B/P 130/63 SATS 100% ON MECH VENT FIO2 40 LABS: HGB 7.9 HCT 23.4 BUN 20 GLU 126 CA 7.7 ABGs PO2 129.6 IS:DEXTROSE @ 75 ML/HR LOPRESSOR PO Q12H MAG SULFATE IV X1 CEFTRIAXONE IV Q24H CORDARONE PO QHS ICU PLAN OF CARE: WEANING DETERMINATION EXTUBATION
--- NOTE | 2019-07-03 09:30 | NUR ---
NURSE NOTES: Pt taken off ELECTRIC POWER LINE REPAIRER restraints and agreed not to pull out chest tube. Will continue to monitor.
--- NOTE | 2019-07-03 09:59 | Cardiac Electrophysiology PN ---
Assessment/Plan Assessment/Plan 1. Status post [employer] pacemaker implantation and subsequent generator change by me in 07/2018. The pacemaker was re-interrogated and showed normal pacemaker function. The patient continues to have episodes of atrial fibrillation. 2. Paroxysmal atrial fibrillation with rapid ventricular response. Continue amiodarone 200 mg daily and metoprolol 25 mg b.i.d. Off anticoagulation in view of severe anemia, needing blood transfusion. 3. Chest pain, felt to be musculoskeletal by Dr. Araujo. The patient was ruled out for myocardial infarction. EF on 06/26/2019 was 55% 4. Urinary tract infection. 5. Hypertension. Continue metoprolol at this time. 6. Polycythemia vera, 7. Recurrent falls. . 8. Severe pulmonary hypertension. PA pressure of 71. 9. Hemothorax. S/P VATS today by Dr Malik, on the Vent Still has chest tube DW RN Subjective Subjective Intubated in ICU on the vent after VATS by Dr Malik. Intermittently A or V pacing. In and out of atrial fib with CVR Objective Last 24 Hour Vital Signs Date Time Temp Pulse Resp B/P (MAP) Pulse Ox O2 Delivery O2 Flow Rate FiO2 07/03/19 08:55 Nasal Cannula 2.0 28 07/03/19 08:55 2.0 07/03/19 08:54 65 131/61 07/03/19 08:00 40 07/03/19 07:45 100 07/03/19 07:45 63 18 30 07/03/19 07:00 65 18 137/61 (86) 100 07/03/19 06:50 64 22 40 07/03/19 06:30 61 18 07/03/19 06:00 60 18 111/57 (75) 100 07/03/19 05:08 60 18 40 07/03/19 05:00 60 19 107/63 (78) 100 07/03/19 04:00 98.3 66 19 130/63 (85) 100 07/03/19 04:00 40 07/03/19 04:00 66 07/03/19 04:00 Mechanical Ventilator Mechanical Ventilator 07/03/19 03:24 60 18 40 07/03/19 03:00 60 18 134/62 (86) 100 07/03/19 02:00 60 13 121/62 (81) 100 07/03/19 01:25 60 18 40 07/03/19 01:00 60 18 134/63 (86) 100 07/03/19 00:00 Mechanical Ventilator Mechanical Ventilator 07/03/19 00:00 98.6 60 18 149/62 (91) 100 07/03/19 00:00 40 07/03/19 00:00 60 07/02/19 23:00 65 19 145/63 (90) 100 07/02/19 22:58 65 19 40 07/02/19 22:47 65 151/67 07/02/19 22:00 68 23 159/72 (101) 100 07/02/19 21:30 67 19 40 07/02/19 21:30 65 17 142/58 (86) 99 07/02/19 21:00 65 18 134/56 (82) 98 07/02/19 20:30 66 18 148/59 (88) 100 07/02/19 20:00 40 07/02/19 20:00 Mechanical Ventilator Mechanical Ventilator 07/02/19 20:00 98.2 64 14 148/78 (101) 100 07/02/19 19:30 68 17 150/73 (98) 93 07/02/19 19:28 68 07/02/19 19:18 68 21 40 07/02/19 19:00 60 16 152/64 (93) 100 07/02/19 17:30 63 21 138/68 (91) 100 07/02/19 17:00 65 20 118/55 (76) 100 07/02/19 17:00 50 07/02/19 16:38 62 21 50 07/02/19 16:30 63 19 109/43 (65) 100 07/02/19 16:00 66 07/02/19 16:00 98.2 65 18 101/43 (62) 99 07/02/19 16:00 100 07/02/19 16:00 Mechanical Ventilator Mechanical Ventilator 07/02/19 15:45 67 18 87/45 (59) 97 07/02/19 15:30 69 18 85/41 (56) 99 07/02/19 15:24 50 07/02/19 15:15 68 19 90/50 (63) 99 07/02/19 15:03 84 19 100 07/02/19 15:00 100 07/02/19 15:00 97.8 69 18 90/50 (63) 100 07/02/19 15:00 67 07/02/19 14:58 98.0 59 15 122/52 99 Mechanical Ventilator 100 07/02/19 14:42 59 19 91/50 99 Mechanical Ventilator 100 07/02/19 14:27 60 17 95/58 99 Mechanical Ventilator 100 07/02/19 14:12 70 16 131/66 95 Mechanical Ventilator 100 07/02/19 14:10 100 07/02/19 14:02 70 15 131/66 72 Mechanical Ventilator 100 07/02/19 13:52 90 15 131/66 72 Simple Mask 15 07/02/19 13:47 90 14 132/65 90 Simple Mask 15 07/02/19 13:42 97.6 64 14 127/68 87 Simple Mask 15 07/02/19 12:00 97.5 63 19 112/68 (83) 98 Intake and Output 07/02/19 07/03/19 19:00 07:00 Intake Total 510 ml 960 ml Output Total 95 ml 220 ml Balance 415 ml 740 ml IV Total 510 ml 900 ml Other 60 ml Output Chest Tube Drainage Total 220 ml Estimated Blood Loss 10 ml Other 85 ml # Voids 1 1 Laboratory Tests Test 07/02/19 14:30 07/02/19 15:00 07/02/19 20:24 07/03/19 03:35 White Blood Count 8.8 K/UL (4.8-10.8) # 6.8 K/UL (4.8-10.8) Red Blood Count 3.12 M/UL (4.20-5.40) L 2.59 M/UL (4.20-5.40) L Hemoglobin 9.2 G/DL (12.0-16.0) L 7.9 G/DL (12.0-16.0) L Hematocrit 28.5 % (37.0-47.0) L 23.4 % (37.0-47.0) L Mean Corpuscular Volume 91 FL (80-99) 90 FL (80-99) Mean Corpuscular Hemoglobin 29.6 PG (27.0-31.0) 30.4 PG (27.0-31.0) Mean Corpuscular Hemoglobin Concent 32.4 G/DL (32.0-36.0) 33.7 G/DL (32.0-36.0) Red Cell Distribution Width 18.6 % (11.6-14.8) H 19.3 % (11.6-14.8) H Platelet Count 304 K/UL (150-450) # 171 K/UL (150-450) Mean Platelet Volume 9.2 FL (6.5-10.1) 8.4 FL (6.5-10.1) Neutrophils (%) (Auto) 59.2 % (45.0-75.0) % (45.0-75.0) Lymphocytes (%) (Auto) 31.3 % (20.0-45.0) % (20.0-45.0) Monocytes (%) (Auto) 5.0 % (1.0-10.0) % (1.0-10.0) Eosinophils (%) (Auto) 0.7 % (0.0-3.0) % (0.0-3.0) Basophils (%) (Auto) 3.8 % (0.0-2.0) H % (0.0-2.0) Sodium Level 141 MMOL/L (136-145) 141 MMOL/L (136-145) Potassium Level 3.9 MMOL/L (3.5-5.1) 4.2 MMOL/L (3.5-5.1) Chloride Level 106 MMOL/L (98-107) 107 MMOL/L (98-107) Carbon Dioxide Level 27 MMOL/L (21-32) 24 MMOL/L (21-32) Anion Gap 9 mmol/L (5-15) 10 mmol/L (5-15) Blood Urea Nitrogen 17 mg/dL (7-18) 20 mg/dL (7-18) H Creatinine 0.8 MG/DL (0.55-1.30) 0.8 MG/DL (0.55-1.30) Estimat Glomerular Filtration Rate > 60 mL/min (>60) > 60 mL/min (>60) Glucose Level 223 MG/DL (74-106) #H 126 MG/DL (74-106) H Calcium Level 8.3 MG/DL (8.5-10.1) L 7.7 MG/DL (8.5-10.1) L Ionized Calcium (Measured) 1.10 mmol/L (1.10-1.35) 1.02 mmol/L (1.10-1.35) L Phosphorus Level 3.8 MG/DL (2.5-4.9) 3.0 MG/DL (2.5-4.9) Magnesium Level 1.9 MG/DL (1.8-2.4) 1.8 MG/DL (1.8-2.4) Arterial Blood pH 7.334 (7.350-7.450) 7.407 (7.350-7.450) Arterial Blood Partial Pressure CO2 43.1 mmHg (35.0-45.0) 36.4 mmHg (35.0-45.0) Arterial Blood Partial Pressure O2 189.4 mmHg (75.0-100.0) H 111.1 mmHg (75.0-100.0) H Arterial Blood HCO3 22.4 mmol/L (22.0-26.0) 22.4 mmol/L (22.0-26.0) Arterial Blood Oxygen Saturation 98.7 % (95-100) 97.5 % (95-100) Arterial Blood Base Excess -3.3 (-2-2) L -2.0 (-2-2) Efrem Test Positive Positive Differential Total Cells Counted 100 Neutrophils % (Manual) 83 % (45-75) H Lymphocytes % (Manual) 9 % (20-45) L Monocytes % (Manual) 4 % (1-10) Eosinophils % (Manual) 1 % (0-3) Basophils % (Manual) 1 % (0-2) Band Neutrophils 2 % (0-8) Platelet Estimate Adequate Platelet Morphology Normal Hypochromasia 3+ Anisocytosis 2+ Spherocytes 1+ Total Bilirubin 0.3 MG/DL (0.2-1.0) Aspartate Amino Transf (AST/SGOT) 12 U/L (15-37) L Alanine Aminotransferase (ALT/SGPT) 9 U/L (12-78) L Alkaline Phosphatase 52 U/L (46-116) Troponin I 0.029 ng/mL (0.000-0.056) Total Protein 5.7 G/DL (6.4-8.2) L Albumin 2.6 G/DL (3.4-5.0) L Globulin 3.1 g/dL Albumin/Globulin Ratio 0.8 (1.0-2.7) L Test 07/03/19 07:22 Arterial Blood pH 7.432 (7.350-7.450) Arterial Blood Partial Pressure CO2 35.3 mmHg (35.0-45.0) Arterial Blood Partial Pressure O2 129.6 mmHg (75.0-100.0) H Arterial Blood HCO3 23.0 mmol/L (22.0-26.0) Arterial Blood Oxygen Saturation 98.1 % (95-100) Arterial Blood Base Excess -1.0 (-2-2) Efrem Test Positive Microbiology Date/Time Source Procedure Growth Status 07/02/19 14:00 Lung Right Received 07/02/19 14:00 Lung Right Gram Stain - Final Resulted 07/02/19 14:00 Lung Right Aerobic Culture Pending Resulted 07/02/19 14:00 Lung Right Anaerobic Culture Pending Resulted Objective HEAD AND NECK: Orally intubated LUNGS: Coarse rhonchi.Decreased BS on R with Chest tube draining CARDIOVASCULAR: Shows regular S1 and S2 with no gallop. ABDOMEN: Soft. EXTREMITIES: No pitting edema. SKIN: The pacemaker in the left subclavian intact. River Freitas MD July 03, 2019 09:59
--- NOTE | 2019-07-03 10:43 | Diagnostic Imaging Report ---
Procedure: XRAY Chest 1v Reason for study: NG tube placement. Comparison films: 07/02/2019. FINDINGS: Endotracheal tube remains in place. There is an NG tube in the stomach. Right chest tube also remains in place. There is no pneumothorax but there is increased chest wall emphysema. Vascularity is normal. Right basilar infiltrate again noted. Cardiac and mediastinal silhouette are within normal limits. CP angles are sharp. The bony thorax appear unremarkable. IMPRESSION: New NG tube in good position. No Endotracheal tube and chest tube unchanged. Increased right chest wall emphysema.
--- NOTE | 2019-07-03 10:58 | Pulmonolgy Critical Care Note ---
Critical Care - Asmt/Plan Problems: (1) Hematothorax (2) Thoracostomy tube in place (3) Ribs, multiple fractures (4) KELVIN (obstructive sleep apnea) (5) COPD (chronic obstructive pulmonary disease) (6) CAD (coronary artery disease) (7) Paroxysmal A-fib (8) Pacemaker Respiratory: monitor respiratory rate, adjust FIO2 Cardiac: continue to monitor HR/BP Renal: F/U I&O Infectious Disease: check cultures Gastrointestinal: start feedings Hematologic: monitor H/H, transfuse if hgb<8.5 Neurologic: PRN Morphine, keep patient comfortable Affect: PRN ativan Disposition: keep in ICU Notes Reviewed: disc recordist, renal Discussed with: nurses, consultants, human services case managermeat sales and storage manager - Objective Last 24 Hour Vital Signs Date Time Temp Pulse Resp B/P (MAP) Pulse Ox O2 Delivery O2 Flow Rate FiO2 07/03/19 10:00 Nasal Cannula 2.0 Nasal Cannula 2.0 Nasal Cannula 2.0 07/03/19 10:00 60 14 114/54 (74) 100 07/03/19 09:55 100 Nasal Cannula 2.0 28 07/03/19 09:00 70 20 155/63 (93) 100 07/03/19 08:55 Nasal Cannula 2.0 28 07/03/19 08:55 2.0 07/03/19 08:54 65 131/61 07/03/19 08:00 Mechanical Ventilator Mechanical Ventilator 07/03/19 08:00 98.7 62 17 124/59 (80) 99 07/03/19 08:00 40 07/03/19 07:45 100 07/03/19 07:45 63 18 30 07/03/19 07:00 65 18 137/61 (86) 100 07/03/19 06:50 64 22 40 07/03/19 06:30 61 18 07/03/19 06:00 60 18 111/57 (75) 100 07/03/19 05:08 60 18 40 07/03/19 05:00 60 19 107/63 (78) 100 07/03/19 04:00 98.3 66 19 130/63 (85) 100 07/03/19 04:00 40 07/03/19 04:00 66 07/03/19 04:00 Mechanical Ventilator Mechanical Ventilator 07/03/19 03:24 60 18 40 07/03/19 03:00 60 18 134/62 (86) 100 07/03/19 02:00 60 13 121/62 (81) 100 07/03/19 01:25 60 18 40 07/03/19 01:00 60 18 134/63 (86) 100 07/03/19 00:00 Mechanical Ventilator Mechanical Ventilator 07/03/19 00:00 98.6 60 18 149/62 (91) 100 07/03/19 00:00 40 07/03/19 00:00 60 07/02/19 23:00 65 19 145/63 (90) 100 07/02/19 22:58 65 19 40 07/02/19 22:47 65 151/67 07/02/19 22:00 68 23 159/72 (101) 100 07/02/19 21:30 67 19 40 07/02/19 21:30 65 17 142/58 (86) 99 07/02/19 21:00 65 18 134/56 (82) 98 07/02/19 20:30 66 18 148/59 (88) 100 07/02/19 20:00 40 07/02/19 20:00 Mechanical Ventilator Mechanical Ventilator 07/02/19 20:00 98.2 64 14 148/78 (101) 100 07/02/19 19:30 68 17 150/73 (98) 93 07/02/19 19:28 68 07/02/19 19:18 68 21 40 07/02/19 19:00 60 16 152/64 (93) 100 07/02/19 17:30 63 21 138/68 (91) 100 07/02/19 17:00 65 20 118/55 (76) 100 07/02/19 17:00 50 07/02/19 16:38 62 21 50 07/02/19 16:30 63 19 109/43 (65) 100 07/02/19 16:00 66 07/02/19 16:00 98.2 65 18 101/43 (62) 99 07/02/19 16:00 100 07/02/19 16:00 Mechanical Ventilator Mechanical Ventilator 07/02/19 15:45 67 18 87/45 (59) 97 07/02/19 15:30 69 18 85/41 (56) 99 07/02/19 15:24 50 07/02/19 15:15 68 19 90/50 (63) 99 07/02/19 15:03 84 19 100 07/02/19 15:00 100 07/02/19 15:00 97.8 69 18 90/50 (63) 100 07/02/19 15:00 67 07/02/19 14:58 98.0 59 15 122/52 99 Mechanical Ventilator 100 07/02/19 14:42 59 19 91/50 99 Mechanical Ventilator 100 07/02/19 14:27 60 17 95/58 99 Mechanical Ventilator 100 07/02/19 14:12 70 16 131/66 95 Mechanical Ventilator 100 07/02/19 14:10 100 07/02/19 14:02 70 15 131/66 72 Mechanical Ventilator 100 07/02/19 13:52 90 15 131/66 72 Simple Mask 15 07/02/19 13:47 90 14 132/65 90 Simple Mask 15 07/02/19 13:42 97.6 64 14 127/68 87 Simple Mask 15 07/02/19 12:00 97.5 63 19 112/68 (83) 98 Status: awake Condition: critical, improving HEENT: atraumatic Neck: full ROM Lungs: rales, rhonchi, other - right chest tube on suction Heart: HR/BP stable Abdomen: soft Extremities: no C/C/E Micro: Microbiology Date/Time Source Procedure Growth Status 07/02/19 14:00 Lung Right Received 07/02/19 14:00 Lung Right Gram Stain - Final Resulted 07/02/19 14:00 Lung Right Aerobic Culture Pending Resulted 07/02/19 14:00 Lung Right Anaerobic Culture Pending Resulted Accucheck: 103 Critical Care - Subjective ROS Limited/Unobtainable: No Interval Events: admitted yesterday to ICU after thoracoscopy. She got reintubated after initial extubation. She did the weaning this morning and got extubated again. FI02: 28 Vent Support Breath Rate: 18 Vent Support Mode: IMV/SIMV Vent Tidal Volume: 400 Sputum Amount: Small PEEP: 5 PIP: 16 I&O: Intake and Output 07/02/19 07/03/19 19:00 07:00 Intake Total 510 ml 960 ml Output Total 95 ml 220 ml Balance 415 ml 740 ml IV Total 510 ml 900 ml Other 60 ml Output Chest Tube Drainage Total 220 ml Estimated Blood Loss 10 ml Other 85 ml # Voids 1 1 ET-Tube: 7.5 ET Position: 23 Labs: Laboratory Tests Test 07/02/19 14:30 07/02/19 15:00 07/02/19 20:24 07/03/19 03:35 White Blood Count 8.8 K/UL (4.8-10.8) # 6.8 K/UL (4.8-10.8) Red Blood Count 3.12 M/UL (4.20-5.40) L 2.59 M/UL (4.20-5.40) L Hemoglobin 9.2 G/DL (12.0-16.0) L 7.9 G/DL (12.0-16.0) L Hematocrit 28.5 % (37.0-47.0) L 23.4 % (37.0-47.0) L Mean Corpuscular Volume 91 FL (80-99) 90 FL (80-99) Mean Corpuscular Hemoglobin 29.6 PG (27.0-31.0) 30.4 PG (27.0-31.0) Mean Corpuscular Hemoglobin Concent 32.4 G/DL (32.0-36.0) 33.7 G/DL (32.0-36.0) Red Cell Distribution Width 18.6 % (11.6-14.8) H 19.3 % (11.6-14.8) H Platelet Count 304 K/UL (150-450) # 171 K/UL (150-450) Mean Platelet Volume 9.2 FL (6.5-10.1) 8.4 FL (6.5-10.1) Neutrophils (%) (Auto) 59.2 % (45.0-75.0) % (45.0-75.0) Lymphocytes (%) (Auto) 31.3 % (20.0-45.0) % (20.0-45.0) Monocytes (%) (Auto) 5.0 % (1.0-10.0) % (1.0-10.0) Eosinophils (%) (Auto) 0.7 % (0.0-3.0) % (0.0-3.0) Basophils (%) (Auto) 3.8 % (0.0-2.0) H % (0.0-2.0) Sodium Level 141 MMOL/L (136-145) 141 MMOL/L (136-145) Potassium Level 3.9 MMOL/L (3.5-5.1) 4.2 MMOL/L (3.5-5.1) Chloride Level 106 MMOL/L (98-107) 107 MMOL/L (98-107) Carbon Dioxide Level 27 MMOL/L (21-32) 24 MMOL/L (21-32) Anion Gap 9 mmol/L (5-15) 10 mmol/L (5-15) Blood Urea Nitrogen 17 mg/dL (7-18) 20 mg/dL (7-18) H Creatinine 0.8 MG/DL (0.55-1.30) 0.8 MG/DL (0.55-1.30) Estimat Glomerular Filtration Rate > 60 mL/min (>60) > 60 mL/min (>60) Glucose Level 223 MG/DL (74-106) #H 126 MG/DL (74-106) H Calcium Level 8.3 MG/DL (8.5-10.1) L 7.7 MG/DL (8.5-10.1) L Ionized Calcium (Measured) 1.10 mmol/L (1.10-1.35) 1.02 mmol/L (1.10-1.35) L Phosphorus Level 3.8 MG/DL (2.5-4.9) 3.0 MG/DL (2.5-4.9) Magnesium Level 1.9 MG/DL (1.8-2.4) 1.8 MG/DL (1.8-2.4) Arterial Blood pH 7.334 (7.350-7.450) 7.407 (7.350-7.450) Arterial Blood Partial Pressure CO2 43.1 mmHg (35.0-45.0) 36.4 mmHg (35.0-45.0) Arterial Blood Partial Pressure O2 189.4 mmHg (75.0-100.0) H 111.1 mmHg (75.0-100.0) H Arterial Blood HCO3 22.4 mmol/L (22.0-26.0) 22.4 mmol/L (22.0-26.0) Arterial Blood Oxygen Saturation 98.7 % (95-100) 97.5 % (95-100) Arterial Blood Base Excess -3.3 (-2-2) L -2.0 (-2-2) Efrem Test Positive Positive Differential Total Cells Counted 100 Neutrophils % (Manual) 83 % (45-75) H Lymphocytes % (Manual) 9 % (20-45) L Monocytes % (Manual) 4 % (1-10) Eosinophils % (Manual) 1 % (0-3) Basophils % (Manual) 1 % (0-2) Band Neutrophils 2 % (0-8) Platelet Estimate Adequate Platelet Morphology Normal Hypochromasia 3+ Anisocytosis 2+ Spherocytes 1+ Total Bilirubin 0.3 MG/DL (0.2-1.0) Aspartate Amino Transf (AST/SGOT) 12 U/L (15-37) L Alanine Aminotransferase (ALT/SGPT) 9 U/L (12-78) L Alkaline Phosphatase 52 U/L (46-116) Troponin I 0.029 ng/mL (0.000-0.056) Total Protein 5.7 G/DL (6.4-8.2) L Albumin 2.6 G/DL (3.4-5.0) L Globulin 3.1 g/dL Albumin/Globulin Ratio 0.8 (1.0-2.7) L Test 07/03/19 07:22 Arterial Blood pH 7.432 (7.350-7.450) Arterial Blood Partial Pressure CO2 35.3 mmHg (35.0-45.0) Arterial Blood Partial Pressure O2 129.6 mmHg (75.0-100.0) H Arterial Blood HCO3 23.0 mmol/L (22.0-26.0) Arterial Blood Oxygen Saturation 98.1 % (95-100) Arterial Blood Base Excess -1.0 (-2-2) Efrem Test Positive Kelly Mejia MD July 03, 2019 10:58
--- NOTE | 2019-07-03 11:00 | NUR ---
NURSE NOTES: Dr Mejia at bedside assessing pt. Pt is asleep, in no acute distress at this time.
--- NOTE | 2019-07-03 11:45 | Infectious Diseases Prog Note ---
Assessment/Plan Assessment/Plan Assessment: Afebrile No leukocytosis -06/21 u/a wbc 15-20, nit neg, leuk+3; UCx <10 mixed urogenital contaminants Probable PNA- COVID19 neg x1 (overall low suspicion) -06/26 CXR: Pulmonary vascular congestion, similar to mildly increased from the prior exam. No significant change in the small right pleural effusion or subtle infiltrate in the right lung base. -06/25 SARS-COV2 PCR neg -06/23 CXR: Right basilar infiltrate with trace right effusion. s/p Mechanical fall Rib, abdominal pain- 2ry to R rib fractures and large R pleural effusion/ hemothorax -07/01 SP Flexible bronchoscopy. Right video-assisted thoracoscopic surgery. Intrapleural pneumolysis.Evacuation of right intrathoracic blood. Intercostal nerve block. --OR Findings: Minimal amount of mucopurulent secretion was lavaged and suctioned clear. Righ hemithorax: There was noted to be some adhesions There was noted to be no protrusion of any fractured ribs into the intrathoracic cavity as the entire parietal pleura appears to be intact. -- cx NTD -06/25 Chest US: Small right pleural effusion, decreased compared to the prior exam. No significant pocket for thoracentesis. -06/22 Chest US: Positive for right pleural effusion -06/[address]: 1. 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 No acute intracranial pathology is detected. CT C/abd/p:No evidence of acute injury to the abdominal or pelvic viscera. Somewhat limited study due to motion artifact. Cholelithiasis. Acute posterior medial lower right rib fractures. Moderate to large right pleural effusion, possibly containing an element of the hemothorax. Cardiomegaly.ASCVD. No pneumothoraces. Acute on chronic anemia -08/06/18 sp EGD: Normal upper endoscopy, status post biopsy. -path: mild chronic gastritis, no H. pylori identified pAfib hx of rib fractures Sinus node dysfunction s/p PPM (batter exchange July 2018) s/p KELI GERD polycythemia vera HLD MDD anemia NSTEMI s/p normal cardiac catheterization 2019 HTN KELVIN dCHF Plan: -Cont empiric Ceftriaxone #8/10 -f/u cx -Monitor CBC/CMP, temperatures -aspiration precautions -ok to dc COVID19 isolation -ICU/ETT care -Pulm, CT sx, cards f/u Thank you for consulting [facility]. Will contiue to follow along with you. Discussed with RN Subjective Allergies: Coded Allergies: No Known Allergies (Unverified , 04/24/18) Subjective afebrile sp VATS yesterday, remains intubated on ICU no leukocytosis Objective Vital Signs Last 24 Hour Vital Signs Date Time Temp Pulse Resp B/P (MAP) Pulse Ox O2 Delivery O2 Flow Rate FiO2 07/03/19 11:00 60 12 105/52 (69) 100 07/03/19 10:00 Nasal Cannula 2.0 Nasal Cannula 2.0 Nasal Cannula 2.0 07/03/19 10:00 60 14 114/54 (74) 100 07/03/19 09:55 100 Nasal Cannula 2.0 28 07/03/19 09:00 70 20 155/63 (93) 100 07/03/19 08:55 Nasal Cannula 2.0 28 07/03/19 08:55 2.0 07/03/19 08:54 65 131/61 07/03/19 08:00 61 07/03/19 08:00 Mechanical Ventilator Mechanical Ventilator 07/03/19 08:00 98.7 62 17 124/59 (80) 99 07/03/19 08:00 40 07/03/19 07:45 100 07/03/19 07:45 63 18 30 07/03/19 07:00 65 18 137/61 (86) 100 07/03/19 06:50 64 22 40 07/03/19 06:30 61 18 07/03/19 06:00 60 18 111/57 (75) 100 07/03/19 05:08 60 18 40 07/03/19 05:00 60 19 107/63 (78) 100 07/03/19 04:00 98.3 66 19 130/63 (85) 100 07/03/19 04:00 40 07/03/19 04:00 66 07/03/19 04:00 Mechanical Ventilator Mechanical Ventilator 07/03/19 03:24 60 18 40 07/03/19 03:00 60 18 134/62 (86) 100 07/03/19 02:00 60 13 121/62 (81) 100 07/03/19 01:25 60 18 40 07/03/19 01:00 60 18 134/63 (86) 100 07/03/19 00:00 Mechanical Ventilator Mechanical Ventilator 07/03/19 00:00 98.6 60 18 149/62 (91) 100 07/03/19 00:00 40 07/03/19 00:00 60 07/02/19 23:00 65 19 145/63 (90) 100 07/02/19 22:58 65 19 40 07/02/19 22:47 65 151/67 07/02/19 22:00 68 23 159/72 (101) 100 07/02/19 21:30 67 19 40 07/02/19 21:30 65 17 142/58 (86) 99 07/02/19 21:00 65 18 134/56 (82) 98 07/02/19 20:30 66 18 148/59 (88) 100 07/02/19 20:00 40 07/02/19 20:00 Mechanical Ventilator Mechanical Ventilator 07/02/19 20:00 98.2 64 14 148/78 (101) 100 07/02/19 19:30 68 17 150/73 (98) 93 07/02/19 19:28 68 07/02/19 19:18 68 21 40 07/02/19 19:00 60 16 152/64 (93) 100 07/02/19 17:30 63 21 138/68 (91) 100 07/02/19 17:00 65 20 118/55 (76) 100 07/02/19 17:00 50 07/02/19 16:38 62 21 50 07/02/19 16:30 63 19 109/43 (65) 100 07/02/19 16:00 66 07/02/19 16:00 98.2 65 18 101/43 (62) 99 07/02/19 16:00 100 07/02/19 16:00 Mechanical Ventilator Mechanical Ventilator 07/02/19 15:45 67 18 87/45 (59) 97 07/02/19 15:30 69 18 85/41 (56) 99 07/02/19 15:24 50 07/02/19 15:15 68 19 90/50 (63) 99 07/02/19 15:03 84 19 100 07/02/19 15:00 100 07/02/19 15:00 97.8 69 18 90/50 (63) 100 07/02/19 15:00 67 07/02/19 14:58 98.0 59 15 122/52 99 Mechanical Ventilator 100 07/02/19 14:42 59 19 91/50 99 Mechanical Ventilator 100 07/02/19 14:27 60 17 95/58 99 Mechanical Ventilator 100 07/02/19 14:12 70 16 131/66 95 Mechanical Ventilator 100 07/02/19 14:10 100 07/02/19 14:02 70 15 131/66 72 Mechanical Ventilator 100 07/02/19 13:52 90 15 131/66 72 Simple Mask 15 07/02/19 13:47 90 14 132/65 90 Simple Mask 15 07/02/19 13:42 97.6 64 14 127/68 87 Simple Mask 15 07/02/19 12:00 97.5 63 19 112/68 (83) 98 Height (Feet): 5 Height (Inches): 0.00 Weight (Pounds): 132 Objective General Appearance: no acute distress, other - elderly female in NAD HEENT: normocephalic, atraumatic, anicteric Respiratory: decreased breath sounds Cardiovascular: normal rate Abdomen: normal bowel sounds, soft, non tender Extremities: no edema Neurologic: abnormal gait - unsteady, alert, responsive Musculoskeletal: atrophy Microbiology Date/Time Source Procedure Growth Status 07/02/19 14:00 Lung Right Received 07/02/19 14:00 Lung Right Gram Stain - Final Resulted 07/02/19 14:00 Lung Right Aerobic Culture - Preliminary NO GROWTH Resulted 07/02/19 14:00 Lung Right Anaerobic Culture Pending Resulted Laboratory Tests Test 07/02/19 14:30 07/02/19 15:00 07/02/19 20:24 07/03/19 03:35 White Blood Count 8.8 K/UL (4.8-10.8) # 6.8 K/UL (4.8-10.8) Red Blood Count 3.12 M/UL (4.20-5.40) L 2.59 M/UL (4.20-5.40) L Hemoglobin 9.2 G/DL (12.0-16.0) L 7.9 G/DL (12.0-16.0) L Hematocrit 28.5 % (37.0-47.0) L 23.4 % (37.0-47.0) L Mean Corpuscular Volume 91 FL (80-99) 90 FL (80-99) Mean Corpuscular Hemoglobin 29.6 PG (27.0-31.0) 30.4 PG (27.0-31.0) Mean Corpuscular Hemoglobin Concent 32.4 G/DL (32.0-36.0) 33.7 G/DL (32.0-36.0) Red Cell Distribution Width 18.6 % (11.6-14.8) H 19.3 % (11.6-14.8) H Platelet Count 304 K/UL (150-450) # 171 K/UL (150-450) Mean Platelet Volume 9.2 FL (6.5-10.1) 8.4 FL (6.5-10.1) Neutrophils (%) (Auto) 59.2 % (45.0-75.0) % (45.0-75.0) Lymphocytes (%) (Auto) 31.3 % (20.0-45.0) % (20.0-45.0) Monocytes (%) (Auto) 5.0 % (1.0-10.0) % (1.0-10.0) Eosinophils (%) (Auto) 0.7 % (0.0-3.0) % (0.0-3.0) Basophils (%) (Auto) 3.8 % (0.0-2.0) H % (0.0-2.0) Sodium Level 141 MMOL/L (136-145) 141 MMOL/L (136-145) Potassium Level 3.9 MMOL/L (3.5-5.1) 4.2 MMOL/L (3.5-5.1) Chloride Level 106 MMOL/L (98-107) 107 MMOL/L (98-107) Carbon Dioxide Level 27 MMOL/L (21-32) 24 MMOL/L (21-32) Anion Gap 9 mmol/L (5-15) 10 mmol/L (5-15) Blood Urea Nitrogen 17 mg/dL (7-18) 20 mg/dL (7-18) H Creatinine 0.8 MG/DL (0.55-1.30) 0.8 MG/DL (0.55-1.30) Estimat Glomerular Filtration Rate > 60 mL/min (>60) > 60 mL/min (>60) Glucose Level 223 MG/DL (74-106) #H 126 MG/DL (74-106) H Calcium Level 8.3 MG/DL (8.5-10.1) L 7.7 MG/DL (8.5-10.1) L Ionized Calcium (Measured) 1.10 mmol/L (1.10-1.35) 1.02 mmol/L (1.10-1.35) L Phosphorus Level 3.8 MG/DL (2.5-4.9) 3.0 MG/DL (2.5-4.9) Magnesium Level 1.9 MG/DL (1.8-2.4) 1.8 MG/DL (1.8-2.4) Arterial Blood pH 7.334 (7.350-7.450) 7.407 (7.350-7.450) Arterial Blood Partial Pressure CO2 43.1 mmHg (35.0-45.0) 36.4 mmHg (35.0-45.0) Arterial Blood Partial Pressure O2 189.4 mmHg (75.0-100.0) H 111.1 mmHg (75.0-100.0) H Arterial Blood HCO3 22.4 mmol/L (22.0-26.0) 22.4 mmol/L (22.0-26.0) Arterial Blood Oxygen Saturation 98.7 % (95-100) 97.5 % (95-100) Arterial Blood Base Excess -3.3 (-2-2) L -2.0 (-2-2) Efrem Test Positive Positive Differential Total Cells Counted 100 Neutrophils % (Manual) 83 % (45-75) H Lymphocytes % (Manual) 9 % (20-45) L Monocytes % (Manual) 4 % (1-10) Eosinophils % (Manual) 1 % (0-3) Basophils % (Manual) 1 % (0-2) Band Neutrophils 2 % (0-8) Platelet Estimate Adequate Platelet Morphology Normal Hypochromasia 3+ Anisocytosis 2+ Spherocytes 1+ Total Bilirubin 0.3 MG/DL (0.2-1.0) Aspartate Amino Transf (AST/SGOT) 12 U/L (15-37) L Alanine Aminotransferase (ALT/SGPT) 9 U/L (12-78) L Alkaline Phosphatase 52 U/L (46-116) Troponin I 0.029 ng/mL (0.000-0.056) Total Protein 5.7 G/DL (6.4-8.2) L Albumin 2.6 G/DL (3.4-5.0) L Globulin 3.1 g/dL Albumin/Globulin Ratio 0.8 (1.0-2.7) L Test 07/03/19 07:22 Arterial Blood pH 7.432 (7.350-7.450) Arterial Blood Partial Pressure CO2 35.3 mmHg (35.0-45.0) Arterial Blood Partial Pressure O2 129.6 mmHg (75.0-100.0) H Arterial Blood HCO3 23.0 mmol/L (22.0-26.0) Arterial Blood Oxygen Saturation 98.1 % (95-100) Arterial Blood Base Excess -1.0 (-2-2) Efrem Test Positive Current Medications Medications (Trade) Dose Ordered Sig/Escobar Route PRN Reason Start Time Stop Time Status Last Admin Dose Admin Acetaminophen (Tylenol) 650 mg Q4H PRN ORAL T>100.5 07/02/19 14:00 07/22/19 13:59 Acetaminophen/ Hydrocodone Bitart (Gilsum 10/325) 1 tab Q4H PRN ORAL Severe Pain (Pain Scale 7-10) 07/02/19 14:00 07/09/19 13:59 Acetaminophen/ Hydrocodone Bitart (Gilsum 5/325) 1 tab Q4H PRN ORAL Moderate Pain (Pain Scale 4-6) 07/02/19 15:00 07/09/19 14:59 07/03/19 09:12 Amiodarone HCl (Cordarone) 200 mg QHS ORAL 07/02/19 21:00 09/30/19 20:59 07/02/19 22:47 Ceftriaxone Sodium 1 gm/ Dextrose 55 ml @ 110 mls/hr Q24H IVPB 07/02/19 14:00 07/04/19 23:59 07/02/19 15:35 Dextrose (Dextrose 50%) 25 ml Q30M PRN IV Hypoglycemia 07/02/19 14:00 09/20/19 18:59 Dextrose (Dextrose 50%) 50 ml Q30M PRN IV Hypoglycemia 07/02/19 14:00 09/20/19 18:59 Hydroxyzine HCl (Atarax) 25 mg Q8H PRN ORAL Itching 07/02/19 14:00 07/30/19 13:59 Lorazepam (Ativan 2mg/ml 1ml) 2 mg Q3H PRN IV For Anxiety 07/03/19 00:45 07/10/19 00:44 07/03/19 00:55 Metoprolol Tartrate (Lopressor) 25 mg EVERY 12 HOURS ORAL 07/02/19 21:00 09/30/19 20:59 07/03/19 08:54 Alejandrina Arrieta M.D. July 03, 2019 11:45
--- NOTE | 2019-07-03 12:00 | NUR ---
NURSE NOTES: Pt repositioned, noted afebrile at this time. No distress noted. Will continue to monitor.
--- NOTE | 2019-07-03 13:22 | Cardiology Progress Note ---
Assessment/Plan Assessment/Plan 1. Paroxysmal episodes of atrial fibrillation. 2. Sick sinus syndrome status post pacemaker implantation with generator replacement in July of 2018. 3. Profound anemia. 4. History of polycythemia. 5. Probable urinary tract infection. 6. Fall. 7. Reported history of polycythemia vera. 8. Sleep apnea history. 9. Rib fracture 10 hemothorax 11. Pulmonary htn 71 s/ vats now extubated now in [facility] icu tele atrial sensed / paced v sensed cxr personally reviewed right infiltrate tele personally reviewed bp is ok was higher now off ivf trop this am neg bnp in am ef 55% d/w rn looks good Subjective Cardiovascular: Reports: lightheadedness; Denies: chest pain Respiratory: Reports: cough; Denies: shortness of breath Gastrointestinal/Abdominal: Denies: abdominal pain Subjective extubated earlier today , Objective Last 24 Hour Vital Signs Date Time Temp Pulse Resp B/P (MAP) Pulse Ox O2 Delivery O2 Flow Rate FiO2 07/03/19 11:00 60 12 105/52 (69) 100 07/03/19 10:00 Nasal Cannula 2.0 Nasal Cannula 2.0 Nasal Cannula 2.0 07/03/19 10:00 60 14 114/54 (74) 100 07/03/19 09:55 100 Nasal Cannula 2.0 28 07/03/19 09:00 70 20 155/63 (93) 100 07/03/19 08:55 Nasal Cannula 2.0 28 07/03/19 08:55 2.0 07/03/19 08:54 65 131/61 07/03/19 08:00 61 07/03/19 08:00 Mechanical Ventilator Mechanical Ventilator 07/03/19 08:00 98.7 62 17 124/59 (80) 99 07/03/19 08:00 40 07/03/19 07:45 100 07/03/19 07:45 63 18 30 07/03/19 07:00 65 18 137/61 (86) 100 07/03/19 06:50 64 22 40 07/03/19 06:30 61 18 07/03/19 06:00 60 18 111/57 (75) 100 07/03/19 05:08 60 18 40 07/03/19 05:00 60 19 107/63 (78) 100 07/03/19 04:00 98.3 66 19 130/63 (85) 100 07/03/19 04:00 40 07/03/19 04:00 66 07/03/19 04:00 Mechanical Ventilator Mechanical Ventilator 07/03/19 03:24 60 18 40 07/03/19 03:00 60 18 134/62 (86) 100 07/03/19 02:00 60 13 121/62 (81) 100 07/03/19 01:25 60 18 40 07/03/19 01:00 60 18 134/63 (86) 100 07/03/19 00:00 Mechanical Ventilator Mechanical Ventilator 07/03/19 00:00 98.6 60 18 149/62 (91) 100 07/03/19 00:00 40 07/03/19 00:00 60 07/02/19 23:00 65 19 145/63 (90) 100 07/02/19 22:58 65 19 40 07/02/19 22:47 65 151/67 07/02/19 22:00 68 23 159/72 (101) 100 07/02/19 21:30 67 19 40 07/02/19 21:30 65 17 142/58 (86) 99 07/02/19 21:00 65 18 134/56 (82) 98 07/02/19 20:30 66 18 148/59 (88) 100 07/02/19 20:00 40 07/02/19 20:00 Mechanical Ventilator Mechanical Ventilator 07/02/19 20:00 98.2 64 14 148/78 (101) 100 07/02/19 19:30 68 17 150/73 (98) 93 07/02/19 19:28 68 07/02/19 19:18 68 21 40 07/02/19 19:00 60 16 152/64 (93) 100 07/02/19 17:30 63 21 138/68 (91) 100 07/02/19 17:00 65 20 118/55 (76) 100 07/02/19 17:00 50 07/02/19 16:38 62 21 50 07/02/19 16:30 63 19 109/43 (65) 100 07/02/19 16:00 66 07/02/19 16:00 98.2 65 18 101/43 (62) 99 07/02/19 16:00 100 07/02/19 16:00 Mechanical Ventilator Mechanical Ventilator 07/02/19 15:45 67 18 87/45 (59) 97 07/02/19 15:30 69 18 85/41 (56) 99 07/02/19 15:24 50 07/02/19 15:15 68 19 90/50 (63) 99 07/02/19 15:03 84 19 100 07/02/19 15:00 100 07/02/19 15:00 97.8 69 18 90/50 (63) 100 07/02/19 15:00 67 07/02/19 14:58 98.0 59 15 122/52 99 Mechanical Ventilator 100 07/02/19 14:42 59 19 91/50 99 Mechanical Ventilator 100 07/02/19 14:27 60 17 95/58 99 Mechanical Ventilator 100 07/02/19 14:12 70 16 131/66 95 Mechanical Ventilator 100 07/02/19 14:10 100 07/02/19 14:02 70 15 131/66 72 Mechanical Ventilator 100 07/02/19 13:52 90 15 131/66 72 Simple Mask 15 07/02/19 13:47 90 14 132/65 90 Simple Mask 15 07/02/19 13:42 97.6 64 14 127/68 87 Simple Mask 15 General Appearance: no apparent distress, alert Neck: supple Cardiovascular: normal rate Respiratory/Chest: rhonchi - right Abdomen: normal bowel sounds, non tender, soft Extremities: non-tender, no swelling Intake and Output 07/02/19 07/03/19 19:00 07:00 Intake Total 510 ml 1035 ml Output Total 95 ml 220 ml Balance 415 ml 815 ml IV Total 510 ml 975 ml Other 60 ml Output Chest Tube Drainage Total 220 ml Estimated Blood Loss 10 ml Other 85 ml # Voids 1 1 Laboratory Tests Test 07/02/19 14:30 07/02/19 15:00 07/02/19 20:24 07/03/19 03:35 White Blood Count 8.8 K/UL (4.8-10.8) # 6.8 K/UL (4.8-10.8) Red Blood Count 3.12 M/UL (4.20-5.40) L 2.59 M/UL (4.20-5.40) L Hemoglobin 9.2 G/DL (12.0-16.0) L 7.9 G/DL (12.0-16.0) L Hematocrit 28.5 % (37.0-47.0) L 23.4 % (37.0-47.0) L Mean Corpuscular Volume 91 FL (80-99) 90 FL (80-99) Mean Corpuscular Hemoglobin 29.6 PG (27.0-31.0) 30.4 PG (27.0-31.0) Mean Corpuscular Hemoglobin Concent 32.4 G/DL (32.0-36.0) 33.7 G/DL (32.0-36.0) Red Cell Distribution Width 18.6 % (11.6-14.8) H 19.3 % (11.6-14.8) H Platelet Count 304 K/UL (150-450) # 171 K/UL (150-450) Mean Platelet Volume 9.2 FL (6.5-10.1) 8.4 FL (6.5-10.1) Neutrophils (%) (Auto) 59.2 % (45.0-75.0) % (45.0-75.0) Lymphocytes (%) (Auto) 31.3 % (20.0-45.0) % (20.0-45.0) Monocytes (%) (Auto) 5.0 % (1.0-10.0) % (1.0-10.0) Eosinophils (%) (Auto) 0.7 % (0.0-3.0) % (0.0-3.0) Basophils (%) (Auto) 3.8 % (0.0-2.0) H % (0.0-2.0) Sodium Level 141 MMOL/L (136-145) 141 MMOL/L (136-145) Potassium Level 3.9 MMOL/L (3.5-5.1) 4.2 MMOL/L (3.5-5.1) Chloride Level 106 MMOL/L (98-107) 107 MMOL/L (98-107) Carbon Dioxide Level 27 MMOL/L (21-32) 24 MMOL/L (21-32) Anion Gap 9 mmol/L (5-15) 10 mmol/L (5-15) Blood Urea Nitrogen 17 mg/dL (7-18) 20 mg/dL (7-18) H Creatinine 0.8 MG/DL (0.55-1.30) 0.8 MG/DL (0.55-1.30) Estimat Glomerular Filtration Rate > 60 mL/min (>60) > 60 mL/min (>60) Glucose Level 223 MG/DL (74-106) #H 126 MG/DL (74-106) H Calcium Level 8.3 MG/DL (8.5-10.1) L 7.7 MG/DL (8.5-10.1) L Ionized Calcium (Measured) 1.10 mmol/L (1.10-1.35) 1.02 mmol/L (1.10-1.35) L Phosphorus Level 3.8 MG/DL (2.5-4.9) 3.0 MG/DL (2.5-4.9) Magnesium Level 1.9 MG/DL (1.8-2.4) 1.8 MG/DL (1.8-2.4) Arterial Blood pH 7.334 (7.350-7.450) 7.407 (7.350-7.450) Arterial Blood Partial Pressure CO2 43.1 mmHg (35.0-45.0) 36.4 mmHg (35.0-45.0) Arterial Blood Partial Pressure O2 189.4 mmHg (75.0-100.0) H 111.1 mmHg (75.0-100.0) H Arterial Blood HCO3 22.4 mmol/L (22.0-26.0) 22.4 mmol/L (22.0-26.0) Arterial Blood Oxygen Saturation 98.7 % (95-100) 97.5 % (95-100) Arterial Blood Base Excess -3.3 (-2-2) L -2.0 (-2-2) Efrem Test Positive Positive Differential Total Cells Counted 100 Neutrophils % (Manual) 83 % (45-75) H Lymphocytes % (Manual) 9 % (20-45) L Monocytes % (Manual) 4 % (1-10) Eosinophils % (Manual) 1 % (0-3) Basophils % (Manual) 1 % (0-2) Band Neutrophils 2 % (0-8) Platelet Estimate Adequate Platelet Morphology Normal Hypochromasia 3+ Anisocytosis 2+ Spherocytes 1+ Total Bilirubin 0.3 MG/DL (0.2-1.0) Aspartate Amino Transf (AST/SGOT) 12 U/L (15-37) L Alanine Aminotransferase (ALT/SGPT) 9 U/L (12-78) L Alkaline Phosphatase 52 U/L (46-116) Troponin I 0.029 ng/mL (0.000-0.056) Total Protein 5.7 G/DL (6.4-8.2) L Albumin 2.6 G/DL (3.4-5.0) L Globulin 3.1 g/dL Albumin/Globulin Ratio 0.8 (1.0-2.7) L Test 07/03/19 07:22 Arterial Blood pH 7.432 (7.350-7.450) Arterial Blood Partial Pressure CO2 35.3 mmHg (35.0-45.0) Arterial Blood Partial Pressure O2 129.6 mmHg (75.0-100.0) H Arterial Blood HCO3 23.0 mmol/L (22.0-26.0) Arterial Blood Oxygen Saturation 98.1 % (95-100) Arterial Blood Base Excess -1.0 (-2-2) Efrem Test Positive Microbiology Date/Time Source Procedure Growth Status 07/02/19 14:00 Lung Right Received 07/02/19 14:00 Lung Right Gram Stain - Final Resulted 07/02/19 14:00 Lung Right Aerobic Culture - Preliminary NO GROWTH Resulted 07/02/19 14:00 Lung Right Anaerobic Culture Pending Resulted Mainor Araujo MD July 03, 2019 13:22
--- NOTE | 2019-07-03 13:28 | Surgery Progress Note ---
Surgery Progress Note Subjective Additional Comments POD #[address] Malik doing okay in ICU chest tube with little output no air leak comfortable appearing h/h trending down but not bleeding actively consider prbc chest tube to suction AM CXR Objective Last 24 Hour Vital Signs Date Time Temp Pulse Resp B/P (MAP) Pulse Ox O2 Delivery O2 Flow Rate FiO2 07/03/19 11:00 60 12 105/52 (69) 100 07/03/19 10:00 Nasal Cannula 2.0 Nasal Cannula 2.0 Nasal Cannula 2.0 07/03/19 10:00 60 14 114/54 (74) 100 07/03/19 09:55 100 Nasal Cannula 2.0 28 07/03/19 09:00 70 20 155/63 (93) 100 07/03/19 08:55 Nasal Cannula 2.0 28 07/03/19 08:55 2.0 07/03/19 08:54 65 131/61 07/03/19 08:00 61 07/03/19 08:00 Mechanical Ventilator Mechanical Ventilator 07/03/19 08:00 98.7 62 17 124/59 (80) 99 07/03/19 08:00 40 07/03/19 07:45 100 07/03/19 07:45 63 18 30 07/03/19 07:00 65 18 137/61 (86) 100 07/03/19 06:50 64 22 40 07/03/19 06:30 61 18 07/03/19 06:00 60 18 111/57 (75) 100 07/03/19 05:08 60 18 40 07/03/19 05:00 60 19 107/63 (78) 100 07/03/19 04:00 98.3 66 19 130/63 (85) 100 07/03/19 04:00 40 07/03/19 04:00 66 07/03/19 04:00 Mechanical Ventilator Mechanical Ventilator 07/03/19 03:24 60 18 40 07/03/19 03:00 60 18 134/62 (86) 100 07/03/19 02:00 60 13 121/62 (81) 100 07/03/19 01:25 60 18 40 07/03/19 01:00 60 18 134/63 (86) 100 07/03/19 00:00 Mechanical Ventilator Mechanical Ventilator 07/03/19 00:00 98.6 60 18 149/62 (91) 100 07/03/19 00:00 40 07/03/19 00:00 60 07/02/19 23:00 65 19 145/63 (90) 100 07/02/19 22:58 65 19 40 07/02/19 22:47 65 151/67 07/02/19 22:00 68 23 159/72 (101) 100 07/02/19 21:30 67 19 40 07/02/19 21:30 65 17 142/58 (86) 99 07/02/19 21:00 65 18 134/56 (82) 98 07/02/19 20:30 66 18 148/59 (88) 100 07/02/19 20:00 40 07/02/19 20:00 Mechanical Ventilator Mechanical Ventilator 07/02/19 20:00 98.2 64 14 148/78 (101) 100 07/02/19 19:30 68 17 150/73 (98) 93 07/02/19 19:28 68 07/02/19 19:18 68 21 40 07/02/19 19:00 60 16 152/64 (93) 100 07/02/19 17:30 63 21 138/68 (91) 100 07/02/19 17:00 65 20 118/55 (76) 100 07/02/19 17:00 50 07/02/19 16:38 62 21 50 07/02/19 16:30 63 19 109/43 (65) 100 07/02/19 16:00 66 07/02/19 16:00 98.2 65 18 101/43 (62) 99 07/02/19 16:00 100 07/02/19 16:00 Mechanical Ventilator Mechanical Ventilator 07/02/19 15:45 67 18 87/45 (59) 97 07/02/19 15:30 69 18 85/41 (56) 99 07/02/19 15:24 50 07/02/19 15:15 68 19 90/50 (63) 99 07/02/19 15:03 84 19 100 07/02/19 15:00 100 07/02/19 15:00 97.8 69 18 90/50 (63) 100 07/02/19 15:00 67 07/02/19 14:58 98.0 59 15 122/52 99 Mechanical Ventilator 100 07/02/19 14:42 59 19 91/50 99 Mechanical Ventilator 100 07/02/19 14:27 60 17 95/58 99 Mechanical Ventilator 100 07/02/19 14:12 70 16 131/66 95 Mechanical Ventilator 100 07/02/19 14:10 100 07/02/19 14:02 70 15 131/66 72 Mechanical Ventilator 100 07/02/19 13:52 90 15 131/66 72 Simple Mask 15 07/02/19 13:47 90 14 132/65 90 Simple Mask 15 07/02/19 13:42 97.6 64 14 127/68 87 Simple Mask 15 I&O Intake and Output 07/02/19 07/03/19 19:00 07:00 Intake Total 510 ml 1035 ml Output Total 95 ml 220 ml Balance 415 ml 815 ml IV Total 510 ml 975 ml Other 60 ml Output Chest Tube Drainage Total 220 ml Estimated Blood Loss 10 ml Other 85 ml # Voids 1 1 Dressing: dry Wound: clean Drains: other Cardiovascular: RSR Respiratory: decreased breath sounds Abdomen: soft, non-tender, present bowel sounds, non-distended Extremities: no edema, no tenderness, no cyanosis Laboratory Tests Test 07/02/19 14:30 07/02/19 15:00 07/02/19 20:24 07/03/19 03:35 White Blood Count 8.8 K/UL (4.8-10.8) # 6.8 K/UL (4.8-10.8) Red Blood Count 3.12 M/UL (4.20-5.40) L 2.59 M/UL (4.20-5.40) L Hemoglobin 9.2 G/DL (12.0-16.0) L 7.9 G/DL (12.0-16.0) L Hematocrit 28.5 % (37.0-47.0) L 23.4 % (37.0-47.0) L Mean Corpuscular Volume 91 FL (80-99) 90 FL (80-99) Mean Corpuscular Hemoglobin 29.6 PG (27.0-31.0) 30.4 PG (27.0-31.0) Mean Corpuscular Hemoglobin Concent 32.4 G/DL (32.0-36.0) 33.7 G/DL (32.0-36.0) Red Cell Distribution Width 18.6 % (11.6-14.8) H 19.3 % (11.6-14.8) H Platelet Count 304 K/UL (150-450) # 171 K/UL (150-450) Mean Platelet Volume 9.2 FL (6.5-10.1) 8.4 FL (6.5-10.1) Neutrophils (%) (Auto) 59.2 % (45.0-75.0) % (45.0-75.0) Lymphocytes (%) (Auto) 31.3 % (20.0-45.0) % (20.0-45.0) Monocytes (%) (Auto) 5.0 % (1.0-10.0) % (1.0-10.0) Eosinophils (%) (Auto) 0.7 % (0.0-3.0) % (0.0-3.0) Basophils (%) (Auto) 3.8 % (0.0-2.0) H % (0.0-2.0) Sodium Level 141 MMOL/L (136-145) 141 MMOL/L (136-145) Potassium Level 3.9 MMOL/L (3.5-5.1) 4.2 MMOL/L (3.5-5.1) Chloride Level 106 MMOL/L (98-107) 107 MMOL/L (98-107) Carbon Dioxide Level 27 MMOL/L (21-32) 24 MMOL/L (21-32) Anion Gap 9 mmol/L (5-15) 10 mmol/L (5-15) Blood Urea Nitrogen 17 mg/dL (7-18) 20 mg/dL (7-18) H Creatinine 0.8 MG/DL (0.55-1.30) 0.8 MG/DL (0.55-1.30) Estimat Glomerular Filtration Rate > 60 mL/min (>60) > 60 mL/min (>60) Glucose Level 223 MG/DL (74-106) #H 126 MG/DL (74-106) H Calcium Level 8.3 MG/DL (8.5-10.1) L 7.7 MG/DL (8.5-10.1) L Ionized Calcium (Measured) 1.10 mmol/L (1.10-1.35) 1.02 mmol/L (1.10-1.35) L Phosphorus Level 3.8 MG/DL (2.5-4.9) 3.0 MG/DL (2.5-4.9) Magnesium Level 1.9 MG/DL (1.8-2.4) 1.8 MG/DL (1.8-2.4) Arterial Blood pH 7.334 (7.350-7.450) 7.407 (7.350-7.450) Arterial Blood Partial Pressure CO2 43.1 mmHg (35.0-45.0) 36.4 mmHg (35.0-45.0) Arterial Blood Partial Pressure O2 189.4 mmHg (75.0-100.0) H 111.1 mmHg (75.0-100.0) H Arterial Blood HCO3 22.4 mmol/L (22.0-26.0) 22.4 mmol/L (22.0-26.0) Arterial Blood Oxygen Saturation 98.7 % (95-100) 97.5 % (95-100) Arterial Blood Base Excess -3.3 (-2-2) L -2.0 (-2-2) Efrem Test Positive Positive Differential Total Cells Counted 100 Neutrophils % (Manual) 83 % (45-75) H Lymphocytes % (Manual) 9 % (20-45) L Monocytes % (Manual) 4 % (1-10) Eosinophils % (Manual) 1 % (0-3) Basophils % (Manual) 1 % (0-2) Band Neutrophils 2 % (0-8) Platelet Estimate Adequate Platelet Morphology Normal Hypochromasia 3+ Anisocytosis 2+ Spherocytes 1+ Total Bilirubin 0.3 MG/DL (0.2-1.0) Aspartate Amino Transf (AST/SGOT) 12 U/L (15-37) L Alanine Aminotransferase (ALT/SGPT) 9 U/L (12-78) L Alkaline Phosphatase 52 U/L (46-116) Troponin I 0.029 ng/mL (0.000-0.056) Total Protein 5.7 G/DL (6.4-8.2) L Albumin 2.6 G/DL (3.4-5.0) L Globulin 3.1 g/dL Albumin/Globulin Ratio 0.8 (1.0-2.7) L Test 07/03/19 07:22 Arterial Blood pH 7.432 (7.350-7.450) Arterial Blood Partial Pressure CO2 35.3 mmHg (35.0-45.0) Arterial Blood Partial Pressure O2 129.6 mmHg (75.0-100.0) H Arterial Blood HCO3 23.0 mmol/L (22.0-26.0) Arterial Blood Oxygen Saturation 98.1 % (95-100) Arterial Blood Base Excess -1.0 (-2-2) Efrem Test Positive Plan Problems: (1) Hematothorax Assessment & Plan: POD #1 s/p VATS recovering okay for diet keep chest tube to suction AM CXR will monitor and remove tube when stable Errol Estrada July 03, 2019 13:28
[2019-07-03] MEDS: cefTRIAXone 1 GM in D5W 55 ML IVPB SCH (13:48)
--- NOTE | 2019-07-03 14:00 | NUR ---
NURSE NOTES: Pt asleep in bed, denies pain at this time, no distress noted. Will continue to monitor.
--- NOTE | 2019-07-03 14:11 | NUR ---
RESEARCH AND INSIGHTS EXECUTIVE NOTE SW attempted to emet w/ pt for initial assessment. Pt was asleep post extubation. Per chart review, pt is able to verbalize her needs. Pt declined a SNF referral and preferred to return home. There is no copy of POLST/AD in the chart. SW will attempt to meet w/ pt when pt is stable to assess. Emergency contacts: Kishan Moreno (son) [phone] and Eden Moreno (daughter in law) [phone]
--- NOTE | 2019-07-03 16:19 | 48 Hour Post Anesthesia Eval ---
Post Anesthesia Evaluation Procedure: Bronchoscopy. VATS Date of Evaluation: July 03, 2019 Time of Evaluation: 16:17 Blood Pressure Systolic: 124 0: 76 Pulse Rate: 78 Respiratory Rate: 22 Temperature (Fahrenheit): 97.8 O2 Sat by Pulse Oximetry: 98 Airway: patent Nausea: No Vomiting: No Pain Intensity: 3 Hydration Status: adequate Cardiopulmonary Status: Extubated in the morning on NC for O2, no pressors Mental Status/LOC: patient returned to baseline Follow-up Care/Observations: n/a Post-Anesthesia Complications: none Follow-up care needed: N/A Moe Gongora MD July 03, 2019 16:19
--- NOTE | 2019-07-03 16:40 | Internal Med Progress Note ---
Subjective Physician Name Antonio Adrian Attending Physician Antonio Adrian MD Current Medications Medications (Trade) Dose Ordered Sig/Escobar Route PRN Reason Start Time Stop Time Status Last Admin Dose Admin Acetaminophen (Tylenol) 650 mg Q4H PRN ORAL T>100.5 07/02/19 14:00 07/22/19 13:59 Acetaminophen/ Hydrocodone Bitart (Ringle 10/325) 1 tab Q4H PRN ORAL Severe Pain (Pain Scale 7-10) 07/02/19 14:00 07/09/19 13:59 Acetaminophen/ Hydrocodone Bitart (Ringle 5/325) 1 tab Q4H PRN ORAL Moderate Pain (Pain Scale 4-6) 07/02/19 15:00 07/09/19 14:59 07/03/19 09:12 Amiodarone HCl (Cordarone) 200 mg QHS ORAL 07/02/19 21:00 09/30/19 20:59 07/02/19 22:47 Ceftriaxone Sodium 1 gm/ Dextrose 55 ml @ 110 mls/hr Q24H IVPB 07/02/19 14:00 07/04/19 23:59 07/03/19 13:48 Dextrose (Dextrose 50%) 25 ml Q30M PRN IV Hypoglycemia 07/02/19 14:00 09/20/19 18:59 Dextrose (Dextrose 50%) 50 ml Q30M PRN IV Hypoglycemia 07/02/19 14:00 09/20/19 18:59 Hydroxyzine HCl (Atarax) 25 mg Q8H PRN ORAL Itching 07/02/19 14:00 07/30/19 13:59 Lorazepam (Ativan 2mg/ml 1ml) 2 mg Q3H PRN IV For Anxiety 07/03/19 00:45 07/10/19 00:44 07/03/19 00:55 Metoprolol Tartrate (Lopressor) 25 mg EVERY 12 HOURS ORAL 07/02/19 21:00 09/30/19 20:59 07/03/19 08:54 Allergies: Coded Allergies: No Known Allergies (Unverified , 04/24/18) Subjective in ICU after thoracoscopy yesterday, awake, less responsive, sleepy, Feeling "Not good", Extubated, Hgb: 7.9. Objective Last Vital Signs Date Time Temp Pulse Resp B/P (MAP) Pulse Ox O2 Delivery O2 Flow Rate FiO2 07/03/19 16:19 78 22 98 07/03/19 16:00 2.0 07/03/19 16:00 Nasal Cannula Nasal Cannula Nasal Cannula 07/03/19 16:00 97.9 124/54 (77) 07/03/19 09:55 28 Laboratory Tests Test 07/02/19 20:24 07/03/19 03:35 07/03/19 07:22 Arterial Blood pH 7.407 (7.350-7.450) 7.432 (7.350-7.450) Arterial Blood Partial Pressure CO2 36.4 mmHg (35.0-45.0) 35.3 mmHg (35.0-45.0) Arterial Blood Partial Pressure O2 111.1 mmHg (75.0-100.0) H 129.6 mmHg (75.0-100.0) H Arterial Blood HCO3 22.4 mmol/L (22.0-26.0) 23.0 mmol/L (22.0-26.0) Arterial Blood Oxygen Saturation 97.5 % (95-100) 98.1 % (95-100) Arterial Blood Base Excess -2.0 (-2-2) -1.0 (-2-2) Efrem Test Positive Positive White Blood Count 6.8 K/UL (4.8-10.8) Red Blood Count 2.59 M/UL (4.20-5.40) L Hemoglobin 7.9 G/DL (12.0-16.0) L Hematocrit 23.4 % (37.0-47.0) L Mean Corpuscular Volume 90 FL (80-99) Mean Corpuscular Hemoglobin 30.4 PG (27.0-31.0) Mean Corpuscular Hemoglobin Concent 33.7 G/DL (32.0-36.0) Red Cell Distribution Width 19.3 % (11.6-14.8) H Platelet Count 171 K/UL (150-450) Mean Platelet Volume 8.4 FL (6.5-10.1) Neutrophils (%) (Auto) % (45.0-75.0) Lymphocytes (%) (Auto) % (20.0-45.0) Monocytes (%) (Auto) % (1.0-10.0) Eosinophils (%) (Auto) % (0.0-3.0) Basophils (%) (Auto) % (0.0-2.0) Differential Total Cells Counted 100 Neutrophils % (Manual) 83 % (45-75) H Lymphocytes % (Manual) 9 % (20-45) L Monocytes % (Manual) 4 % (1-10) Eosinophils % (Manual) 1 % (0-3) Basophils % (Manual) 1 % (0-2) Band Neutrophils 2 % (0-8) Platelet Estimate Adequate Platelet Morphology Normal Hypochromasia 3+ Anisocytosis 2+ Spherocytes 1+ Sodium Level 141 MMOL/L (136-145) Potassium Level 4.2 MMOL/L (3.5-5.1) Chloride Level 107 MMOL/L (98-107) Carbon Dioxide Level 24 MMOL/L (21-32) Anion Gap 10 mmol/L (5-15) Blood Urea Nitrogen 20 mg/dL (7-18) H Creatinine 0.8 MG/DL (0.55-1.30) Estimat Glomerular Filtration Rate > 60 mL/min (>60) Glucose Level 126 MG/DL (74-106) H Calcium Level 7.7 MG/DL (8.5-10.1) L Ionized Calcium (Measured) 1.02 mmol/L (1.10-1.35) L Phosphorus Level 3.0 MG/DL (2.5-4.9) Magnesium Level 1.8 MG/DL (1.8-2.4) Total Bilirubin 0.3 MG/DL (0.2-1.0) Aspartate Amino Transf (AST/SGOT) 12 U/L (15-37) L Alanine Aminotransferase (ALT/SGPT) 9 U/L (12-78) L Alkaline Phosphatase 52 U/L (46-116) Troponin I 0.029 ng/mL (0.000-0.056) Total Protein 5.7 G/DL (6.4-8.2) L Albumin 2.6 G/DL (3.4-5.0) L Globulin 3.1 g/dL Albumin/Globulin Ratio 0.8 (1.0-2.7) L Microbiology Date/Time Source Procedure Growth Status 07/02/19 14:00 Lung Right AFB Specimen Processing Tissue - Final Resulted 07/02/19 14:00 Lung Right Acid Fast Bacilli Smear - Final Resulted 07/02/19 14:00 Lung Right Acid Fast Bacilli Culture Pending Resulted 07/02/19 14:00 Lung Right Gram Stain - Final Resulted 07/02/19 14:00 Lung Right Aerobic Culture - Preliminary NO GROWTH Resulted 07/02/19 14:00 Lung Right Anaerobic Culture Pending Resulted Intake and Output 07/02/19 07/03/19 19:00 07:00 Intake Total 510 ml 1035 ml Output Total 95 ml 220 ml Balance 415 ml 815 ml IV Total 510 ml 975 ml Other 60 ml Output Chest Tube Drainage Total 220 ml Estimated Blood Loss 10 ml Other 85 ml # Voids 1 1 Objective General: No acute distress, awake and alert HEENT: NCAT, sclera anicteric, PERRL, EOMI. Neck: Supple, no significant jugular venous distention, Lungs: fair inspiratory effort, decreased air at the bases, right chest wall tender over the rib cages, Right side chest tube, no Wheeze or Rales. Heart: Regular rate and rhythm, normal S1/S2, no murmurs, +PPM. Abdomen: soft, nontender, nondistended. Normoactive bowel sounds. / Rectal: Refused and deferred. Extremities: No Cyanosis , clubbing or edema. Neuro: A&O x 3, Able to move all extremities. Skin: warm, no rashes or lesions Psych: Mood is depressed. Assessment/Plan Assessment/Plan ASSESSMENT: This is an 79-year-old female. 1. Right side chest wall pain most likely due to the multiple ribs fracture. 2. Mechanical fall 3. Severe anemia. 4. Atrial fibrillation. 5. Polycythemia vera. 6. Hypertension. 7. Obstructive sleep apnea. 8. Coronary artery disease. 9. Hypercholesterolemia. 10. Congestive heart failure; RST=[id number] 11. Sick sinus syndrome status post a pacemaker. 12. Hemopneumothorax s/p right side thoracoscopy (07/02/2019). TREATMENT: 1. Chest pain. This may be secondary to fall injury. Initial troponin level was negative. Repeat troponin levels are pending. A Cardiology consultation has been obtained with Dr. Mainor Araujo. 2. Severe anemia. The patient has been typed and crossed for 2 units of packed RBCs. 3. Atrial fibrillation. As above, a Cardiology consultation has been obtained with Dr. Mainor Araujo. 4. Polycythemia vera. The patient is currently anemic. 5. Hypertension. Continue metoprolol as above. 6. Obstructive sleep apnea. 7. Coronary artery disease, status post myocardial infarction. As above, a Cardiology consultation has been obtained with Dr. Mainor Araujo. 8. Hypercholesteremia. 9. Chronic Congestive heart failure. 10. Pacemaker in situ. Pacemaker check is pending. 11. Discuss with patient regarding discharge planning, wants to go home, refused SNF. 12. CODE STATUS is full code. 13. Broad spectrum antibiotics with Rocephin IV. 14. Monitor cultures and laboratory. 15. DVT prophylaxis: SCD. 16. OOB to chair, PT Mobility Antonio Adrian MD July 03, 2019 16:40
--- NOTE | 2019-07-03 19:16 | NUR ---
HAND-OFF: Report given to IRA Westfall.
--- NOTE | 2019-07-03 19:28 | NUR ---
NURSE NOTES: PATIENT ASLEEP, RESPIRATION REGULAR, O2 4LPM VIA NC, O2 SATURATION OVER 94% NOTED AT THIS TIME, HR 110'S/MIN IRREGULAR HR WITH PACED, ABDOMEN SOFT, CHEST TUBE TO RIGHT SIDE, CLEAN AND DRIED DRESSING STATUS, SEROUS DISCHARGE OUTED, PPL TO LEFT HAND AND RIGHT WRIST, INTACT AND PATENT, MADE LOWER BED POSITION, ON BED ALARM AND LOCKED, CALL LIGHT WITHIN REACH, WILL CONTINUE TO MONITOR.
[2019-07-03] MEDS: Amiodarone 200mg tab ORAL SCH (20:23)
--- NOTE | 2019-07-03 21:21 | NUR ---
NURSE NOTES: GIVEN NORCO 5/325MG 1 TAB BY PO PRN ORDER FOR NECK PAIN OF 5/10 AT 4PM. PATIENT ASLEEP STATUS AT THIS TIME.
--- NOTE | 2019-07-03 23:45 | NUR ---
NURSE NOTES: CHEST TUBE INTACT, CONTINUE LOWER SUCTION STATUS, SEROUS DISCHARGE OUTED, KEPT HOB 30 DEGREES, WILL CONTINUE TO MONITOR.
[2019-07-04] VITALS (32 sets, daily range): BP systolic 84–123; BP diastolic 40–78
--- NOTE | 2019-07-04 01:51 | NUR ---
NURSE NOTES: VSS, PATIENT ASLEEP STATUS.
--- NOTE | 2019-07-04 04:11 | NUR ---
NURSE NOTES: NO CHEST TUBE OUT PUT FOR SEVERAL HOURS, CHEST TUBE INTACT AND CONTINUE LOWER SUCTION STATUS, DECREASED SUBCUTANEOUS EMPHYSEMA TO CHEST WALL, WILL CONTINUE TO MONITOR.
--- NOTE | 2019-07-04 04:40 | NUR ---
NURSE NOTES: MORNING CARE WAS DONE, NO BM STATUS, PATIENT DENIED PAIN OR SOB AT THIS TIME.
[2019-07-04 06:08] LABS: EOSINOPHILS % (AUTO) 0.2 % (0.0-3.0); HEMATOCRIT 26.8 % (37.0-47.0); LYMPHOCYTES % (AUTO) 13.2 % (20.0-45.0); MEAN CORPUSCULAR VOLUME 90 FL (80-99); MONOCYTES % (AUTO) 3.1 % (1.0-10.0); NEUTROPHILS % (AUTO) 82.5 % (45.0-75.0); PLATELET COUNT 229 K/UL (150-450); RED BLOOD COUNT 2.96 M/UL (4.20-5.40); RED CELL DISTRIBUTION WIDTH 19.5 % (11.6-14.8); WHITE BLOOD COUNT 6.8 K/UL (4.8-10.8)
--- NOTE | 2019-07-04 06:20 | NUR ---
NURSE NOTES: NO ACUTE DISTRESS NOTED AT THIS SHIFT.
--- NOTE | 2019-07-04 06:35 | NUR ---
NURSE NOTES: LE; PATIENT REMOVED NASAL CANNULA, O2 SATURATION 74% NOTED AT THAT TIME, PLACED O2 4LPM VIA NC, O2 SATURATION OVER 90% NOTED, WILL CONTINUE TO MONITOR.
[2019-07-04 06:37] LABS: ANION GAP 8 mmol/L (5-15); BLOOD UREA NITROGEN 17 mg/dL (7-18); CALCIUM 8.3 MG/DL (8.5-10.1); CARBON DIOXIDE 25 MMOL/L (21-32); CHLORIDE 106 MMOL/L (98-107); CREATININE 0.9 MG/DL (0.55-1.30); PHOSPHORUS 2.9 MG/DL (2.5-4.9); POTASSIUM 4.5 MMOL/L (3.5-5.1); SODIUM 139 MMOL/L (136-145)
--- NOTE | 2019-07-04 07:04 | NUR ---
RD ASSESSMENT & RECOMMENDATIONS SEE CARE ACTIVITY FOR COMPLETE ASSESSMENT DAILY ESTIMATED NEEDS: Needs based on Cardiac/ 61kg 25-30kcal/kg kcals/kg 3661-9938 total kcals 1-1.2 g protein/kg 61-73 g total protein 20-25 mL/kg 1521-4813 total fluid mLs NUTRITION DIAGNOSIS: Decreased sodium needs r/t cardiac history and clinical status as evidenced by pt w/ CHF, elev BNP (7896-> 1958) CURRENT DIET:REGULAR PO DIET RECOMMENDATIONS: Maintain liberalized regular if w/ continued poor/variable PO ADDITIONAL RECOMMENDATIONS: 1) Calibrated bed scale wts for accurate CBW 2) LOW NA diet w/ PO intake consistently >50% 3) Ensure Enlive (chocolate per pt request) BID w/ meals 4) Monitor for hypoglycemia w/ poor PO- monitor need for added D5 5) MVI x 1 as supplement .
--- NOTE | 2019-07-04 07:30 | NUR ---
HAND-OFF: Report given to IRA KAT.
--- NOTE | 2019-07-04 07:30 | NUR ---
NURSE NOTES: Received report from IRA Westfall. Patient is confused and trying to get out of bed. On O2 4L/min via NC. Right chest tube intact and patent, connected to low intermittent suction. Gentle bubbling noted on water chamber. Left H 22G and right wrist 22G intact and clamped. Kept dry, clean, comfortable and HOB>30. Will continue plan of care.
[2019-07-04] MEDS: LORazepam Inj 2mg/ml 1ml IV PRN (07:38)
--- NOTE | 2019-07-04 08:00 | NUR ---
NURSE NOTES: Inserted left forearm IV 22G. Ativan given as ordered.
--- NOTE | 2019-07-04 09:00 | NUR ---
NURSE NOTES: Patient is desating 80s. Changed NC to venturi mask 55%. O2 Sat 94% on the monitor. Will continue to monitor closely.
--- NOTE | 2019-07-04 10:13 | Diagnostic Imaging Report ---
EXAM: XR Chest, 1 View CLINICAL HISTORY: SCREEN TECHNIQUE: Frontal view of the chest. COMPARISON: Chest x-ray dated 07/03/19 FINDINGS: Lungs: Interval development of diffuse opacification of the left lung. Improved aeration in the right lung base. Pleural space: Unremarkable. The costophrenic angles are sharp. No visible pneumothorax. Heart: Unremarkable. No cardiomegaly. Mediastinum: Unremarkable. Bones/joints: Unremarkable. Soft tissues: No significant change in subcutaneous changes emphysema along the right lateral chest wall. Tubes, lines and devices: Unchanged positioning of a right-sided chest tube. Stable positioning of the patient pacer in the left chest wall with the lead tips in the right atrium and right ventricle regions. Telemetry leads overlie the thorax. Other findings: Interval extubation. IMPRESSION: 1. Interval development of diffuse opacification of the left lung. This raises possibility of having developed a left mainstem bronchus obstruction with postobstructive atelectasis. Alternatively a very large left effusion or severe left-sided pneumonia could have similar appearance, although unlikely to have developed since the prior exam. 2. Interval extubation. 3. Unchanged positioning of a right-sided chest tube. 4. No significant change in subcutaneous changes emphysema along the right lateral chest wall. <MYCVCSECTION> Communications: 07/04/19 10:32 Verify Receipt with Nurse Verified receipt with DAVE Hanson on 07/03 10:31 (-07:00) 07/04/19 10:32 Verify Receipt Verified receipt with DAVE Hanson on 07/03 10: 32 (-07:00)
--- NOTE | 2019-07-04 10:48 | Pulmonolgy Critical Care Note ---
Critical Care - Asmt/Plan Assessment/Plan: ASSESSMENT s/p mechanical fall with acute multiple rib fractures Right pleural effusion , moderate to large with probable associated hemothorax Right hemothorax s/p flexible bronchoscopy, right video-assisted thoracoscopic surgery, intrapleural pneumolysis, evacuation of right intrathoracic blood, intercostal nerve block 07/01 acute resp failure ( remained intubated after surgery), s/p extubation 07/02, now on NRM Right sided chest tube COPD Suspected COVID 19 - not detected History of KELVIN PAF CHF with diastolic dysfunction SSS, status post pacemaker Profound anemia, s/p 3 u PRBC Hx of polycythemia vera Severe pulmonary HTN PLAN OF CARE ICU O2 titrate to keep sat above 90%, pulm toilet CXR noted ABG now Venous Duplex BLE now, place SCD if negative Chest tube with small output, discussed with surgeon, will remove in am fup with CXR in am CT head - no acute IC pathology CT C/A/P noted ; 06/22 US chest noted, m to l R pleural effusion 06/25 US chest with Small right pleural effusion, decreased compared to the prior exam. No significant pocket for thoracentesis. SARS COV-2 by PCR 06/25 not detected abx as per ID, off anticoagulation , continue amiodarone and BB cardio follows PRIOR: seen and evaluated by CT surgeon thoracentesis not performed given small pocket 06/25 per US chest may need VATS for washout. ECHO with pEF and RVSP of 71 c/w severe pulm HTN CXR 06/26 showed Pulmonary vascular congestion, similar to mildly increased from the prior exam. No significant change in the small right pleural effusion or subtle infiltrate in the right lung base. m s/p 3 u PRBC, HH remains stable UCX + mixed urogenital contaminant on empiric Ceftriaxone per ID recs, completing today 07/03 pain management supportive care fall precaution case discussed and evaluated by supervising physician Critical Care - Objective Last 24 Hour Vital Signs Date Time Temp Pulse Resp B/P (MAP) Pulse Ox O2 Delivery O2 Flow Rate FiO2 07/04/19 09:25 120 115/69 07/04/19 09:00 115 24 123/76 (92) 93 07/04/19 08:46 98 Non-Rebreather 15.0 100 07/04/19 08:00 14.0 55 07/04/19 08:00 98.2 120 22 110/72 (85) 88 07/04/19 08:00 Venturi Mask 14.0 Venturi Mask 14.0 Venturi Mask 14.0 07/04/19 07:00 125 22 108/72 (84) 84 07/04/19 06:00 109 23 108/54 (72) 94 07/04/19 05:00 95 26 110/78 (89) 94 07/04/19 04:00 98.4 124 24 98/62 (74) 94 07/04/19 04:00 4.0 07/04/19 04:00 Nasal Cannula 4.0 Nasal Cannula 4.0 Nasal Cannula 4.0 07/04/19 03:00 113 22 103/70 (81) 94 07/04/19 02:00 106 20 106/65 (79) 94 07/04/19 01:00 111 21 100/58 (72) 94 07/04/19 00:00 4.0 07/04/19 00:00 07/04/19 00:00 98.3 109 22 100/73 (82) 95 07/04/19 00:00 Nasal Cannula 4.0 Nasal Cannula 4.0 Nasal Cannula 4.0 07/03/19 23:00 107 24 95/65 (75) 95 07/03/19 22:00 109 20 102/72 (82) 96 07/03/19 21:00 113 19 104/68 (80) 97 07/03/19 20:23 113 137/82 07/03/19 20:00 98.0 122 25 137/82 (100) 91 07/03/19 20:00 Nasal Cannula 4.0 Nasal Cannula 4.0 Nasal Cannula 4.0 07/03/19 20:00 4.0 07/03/19 19:15 115 07/03/19 19:00 113 21 116/66 (83) 94 07/03/19 18:00 71 19 120/65 (83) 99 07/03/19 18:00 73 18 120/65 (83) 94 07/03/19 17:44 4.0 07/03/19 17:00 70 19 123/57 (79) 97 07/03/19 16:19 78 22 98 07/03/19 16:00 63 07/03/19 16:00 2.0 07/03/19 16:00 66 07/03/19 16:00 Nasal Cannula 2.0 Nasal Cannula 2.0 Nasal Cannula 2.0 07/03/19 16:00 97.9 63 19 124/54 (77) 98 07/03/19 15:00 60 15 115/52 (73) 97 07/03/19 14:00 60 14 108/52 (70) 97 07/03/19 13:00 61 15 107/64 (78) 99 07/03/19 12:00 97.8 60 15 125/56 (79) 100 07/03/19 12:00 2.0 07/03/19 12:00 60 07/03/19 12:00 Nasal Cannula 2.0 Nasal Cannula 2.0 Nasal Cannula 2.0 07/03/19 11:00 60 12 105/52 (69) 100 Condition: critical HEENT: atraumatic, other Lungs: rhonchi - bilaterally cracking sounds on the right, CT R sided to hemovac, minimal output, surgical dressing over the site C/D/I Heart: HR/BP stable, other - tachycardic, ST on tele Abdomen: soft, non-tender, active bowel sounds, feeding tube Micro: Microbiology Date/Time Source Procedure Growth Status 07/02/19 14:00 Lung Right AFB Specimen Processing Tissue - Final Resulted 07/02/19 14:00 Lung Right Acid Fast Bacilli Smear - Final Resulted 07/02/19 14:00 Lung Right Acid Fast Bacilli Culture Pending Resulted 07/02/19 14:00 Lung Right Gram Stain - Final Resulted 07/02/19 14:00 Lung Right Aerobic Culture - Preliminary NO GROWTH Resulted 07/02/19 14:00 Lung Right Anaerobic Culture Pending Resulted Accucheck: 103 Critical Care - Subjective ROS Limited/Unobtainable: Yes Interval Events: extubated on 07/02 was on NC, but became tachycardic and tachypneic, changed to VM 55 %, then 100% NRM CXR noted no fevers, no leukocytosis Condition: critical FI02: 100 Vent Support Breath Rate: 18 Vent Support Mode: IMV/SIMV Vent Tidal Volume: 400 Sputum Amount: Small PEEP: 5 PIP: 16 I&O: Intake and Output 07/03/19 07/04/19 19:00 07:00 Intake Total 915 ml 50 ml Output Total 135 ml 40 ml Balance 780 ml 10 ml Intake Oral 360 ml 50 ml IV Total 555 ml Output Chest Tube Drainage Total 135 ml 40 ml # Voids 5 3 CXR: CXR 07/03 1. Interval development of diffuse opacification of the left lung. This raises possibility of having developed a left mainstem bronchus obstruction with postobstructive atelectasis. Alternatively a very large left effusion or severe left-sided pneumonia could have similar appearance, although unlikely to have developed since the prior exam. 2. Interval extubation. 3. Unchanged positioning of a right-sided chest tube. 4. No significant change in subcutaneous changes emphysema along the right lateral chest wall. ET-Tube: 7.5 ET Position: 23 Cait Melchor NP July 04, 2019 10:48
--- NOTE | 2019-07-04 10:55 | Surgery Progress Note ---
Surgery Progress Note Subjective Additional Comments desaturating in the 80s. Changed NC to venturi mask 55%. O2 Sat improved Objective Last 24 Hour Vital Signs Date Time Temp Pulse Resp B/P (MAP) Pulse Ox O2 Delivery O2 Flow Rate FiO2 07/04/19 09:25 120 115/69 07/04/19 09:00 115 24 123/76 (92) 93 07/04/19 08:46 98 Non-Rebreather 15.0 100 07/04/19 08:00 14.0 55 07/04/19 08:00 98.2 120 22 110/72 (85) 88 07/04/19 08:00 Venturi Mask 14.0 Venturi Mask 14.0 Venturi Mask 14.0 07/04/19 07:00 125 22 108/72 (84) 84 07/04/19 06:00 109 23 108/54 (72) 94 07/04/19 05:00 95 26 110/78 (89) 94 07/04/19 04:00 98.4 124 24 98/62 (74) 94 07/04/19 04:00 4.0 07/04/19 04:00 Nasal Cannula 4.0 Nasal Cannula 4.0 Nasal Cannula 4.0 07/04/19 03:00 113 22 103/70 (81) 94 07/04/19 02:00 106 20 106/65 (79) 94 07/04/19 01:00 111 21 100/58 (72) 94 07/04/19 00:00 4.0 07/04/19 00:00 07/04/19 00:00 98.3 109 22 100/73 (82) 95 07/04/19 00:00 Nasal Cannula 4.0 Nasal Cannula 4.0 Nasal Cannula 4.0 07/03/19 23:00 107 24 95/65 (75) 95 07/03/19 22:00 109 20 102/72 (82) 96 07/03/19 21:00 113 19 104/68 (80) 97 07/03/19 20:23 113 137/82 07/03/19 20:00 98.0 122 25 137/82 (100) 91 07/03/19 20:00 Nasal Cannula 4.0 Nasal Cannula 4.0 Nasal Cannula 4.0 07/03/19 20:00 4.0 07/03/19 19:15 115 07/03/19 19:00 113 21 116/66 (83) 94 07/03/19 18:00 71 19 120/65 (83) 99 07/03/19 18:00 73 18 120/65 (83) 94 07/03/19 17:44 4.0 07/03/19 17:00 70 19 123/57 (79) 97 07/03/19 16:19 78 22 98 07/03/19 16:00 63 07/03/19 16:00 2.0 07/03/19 16:00 66 07/03/19 16:00 Nasal Cannula 2.0 Nasal Cannula 2.0 Nasal Cannula 2.0 07/03/19 16:00 97.9 63 19 124/54 (77) 98 07/03/19 15:00 60 15 115/52 (73) 97 07/03/19 14:00 60 14 108/52 (70) 97 07/03/19 13:00 61 15 107/64 (78) 99 07/03/19 12:00 97.8 60 15 125/56 (79) 100 07/03/19 12:00 2.0 07/03/19 12:00 60 07/03/19 12:00 Nasal Cannula 2.0 Nasal Cannula 2.0 Nasal Cannula 2.0 07/03/19 11:00 60 12 105/52 (69) 100 I&O Intake and Output 07/03/19 07/04/19 19:00 07:00 Intake Total 915 ml 50 ml Output Total 135 ml 40 ml Balance 780 ml 10 ml Intake Oral 360 ml 50 ml IV Total 555 ml Output Chest Tube Drainage Total 135 ml 40 ml # Voids 5 3 Dressing: other Wound: other Drains: other Cardiovascular: RSR Respiratory: decreased breath sounds Abdomen: soft, non-tender, present bowel sounds Extremities: no cyanosis Laboratory Tests Test 07/04/19 04:00 White Blood Count 6.8 K/UL (4.8-10.8) Red Blood Count 2.96 M/UL (4.20-5.40) L Hemoglobin 9.0 G/DL (12.0-16.0) L Hematocrit 26.8 % (37.0-47.0) L Mean Corpuscular Volume 90 FL (80-99) Mean Corpuscular Hemoglobin 30.5 PG (27.0-31.0) Mean Corpuscular Hemoglobin Concent 33.7 G/DL (32.0-36.0) Red Cell Distribution Width 19.5 % (11.6-14.8) H Platelet Count 229 K/UL (150-450) Mean Platelet Volume 8.8 FL (6.5-10.1) Neutrophils (%) (Auto) 82.5 % (45.0-75.0) H Lymphocytes (%) (Auto) 13.2 % (20.0-45.0) L Monocytes (%) (Auto) 3.1 % (1.0-10.0) Eosinophils (%) (Auto) 0.2 % (0.0-3.0) Basophils (%) (Auto) 1.0 % (0.0-2.0) Sodium Level 139 MMOL/L (136-145) Potassium Level 4.5 MMOL/L (3.5-5.1) Chloride Level 106 MMOL/L (98-107) Carbon Dioxide Level 25 MMOL/L (21-32) Anion Gap 8 mmol/L (5-15) Blood Urea Nitrogen 17 mg/dL (7-18) Creatinine 0.9 MG/DL (0.55-1.30) Estimat Glomerular Filtration Rate > 60 mL/min (>60) Glucose Level 102 MG/DL (74-106) Calcium Level 8.3 MG/DL (8.5-10.1) L Ionized Calcium (Measured) 1.15 mmol/L (1.10-1.35) Phosphorus Level 2.9 MG/DL (2.5-4.9) Magnesium Level 2.3 MG/DL (1.8-2.4) Plan Problems: (1) Hematothorax Assessment & Plan: s/p VATS recovering okay for diet keep chest tube to suction AM CXR will monitor and remove tube when stable okay for chest tube to water seal Errol Estrada July 04, 2019 10:55
--- NOTE | 2019-07-04 12:38 | NUR ---
NURSE NOTES: Seen Dr. Gutiérrez and assessed patient. Afib 120-140s on the monitor.
--- NOTE | 2019-07-04 12:59 | Internal Med Progress Note ---
Subjective Date of Service: July 04, 2019 Physician Name GraceRoshan Attending Physician Antonio Adrian MD Current Medications Medications (Trade) Dose Ordered Sig/Escobar Route PRN Reason Start Time Stop Time Status Last Admin Dose Admin Acetaminophen (Tylenol) 650 mg Q4H PRN ORAL T>100.5 07/02/19 14:00 07/22/19 13:59 Acetaminophen/ Hydrocodone Bitart ([place] 10/325) 1 tab Q4H PRN ORAL Severe Pain (Pain Scale 7-10) 07/02/19 14:00 07/09/19 13:59 Acetaminophen/ Hydrocodone Bitart ([place] 5/325) 1 tab Q4H PRN ORAL Moderate Pain (Pain Scale 4-6) 07/02/19 15:00 07/09/19 14:59 07/03/19 20:24 Albuterol/ Ipratropium (Albuterol/ Ipratropium) 3 ml Q4HRT PRN HHN sob 07/04/19 11:00 07/09/19 10:59 Amiodarone HCl (Cordarone) 200 mg QHS ORAL 07/02/19 21:00 09/30/19 20:59 07/03/19 20:23 Ceftriaxone Sodium 1 gm/ Dextrose 55 ml @ 110 mls/hr Q24H IVPB 07/02/19 14:00 07/06/19 13:59 07/03/19 13:48 Dextrose (Dextrose 50%) 25 ml Q30M PRN IV Hypoglycemia 07/02/19 14:00 09/20/19 18:59 Dextrose (Dextrose 50%) 50 ml Q30M PRN IV Hypoglycemia 07/02/19 14:00 09/20/19 18:59 Hydroxyzine HCl (Atarax) 25 mg Q8H PRN ORAL Itching 07/02/19 14:00 07/30/19 13:59 Lorazepam (Ativan 2mg/ml 1ml) 2 mg Q3H PRN IV For Anxiety 07/03/19 00:45 07/10/19 00:44 07/04/19 07:38 Metoprolol Tartrate (Lopressor) 25 mg EVERY 12 HOURS ORAL 07/02/19 21:00 09/30/19 20:59 07/04/19 09:25 Allergies: Coded Allergies: No Known Allergies (Unverified , 04/24/18) ROS Limited/Unobtainable: Yes Subjective 79 YO F admitted with atypical chest pain. Now severe anemia and acute congestive heart failure. Cover for Int Med-Dr Adrian. S/P video assisted thoracoscopic exploratory surgery 07/02/19. ICU Objective Last Vital Signs Date Time Temp Pulse Resp B/P (MAP) Pulse Ox O2 Delivery O2 Flow Rate FiO2 07/04/19 09:25 120 115/69 07/04/19 09:00 24 93 07/04/19 08:46 Non-Rebreather 15.0 100 07/04/19 08:00 98.2 Laboratory Tests Test 07/04/19 04:00 White Blood Count 6.8 K/UL (4.8-10.8) Red Blood Count 2.96 M/UL (4.20-5.40) L Hemoglobin 9.0 G/DL (12.0-16.0) L Hematocrit 26.8 % (37.0-47.0) L Mean Corpuscular Volume 90 FL (80-99) Mean Corpuscular Hemoglobin 30.5 PG (27.0-31.0) Mean Corpuscular Hemoglobin Concent 33.7 G/DL (32.0-36.0) Red Cell Distribution Width 19.5 % (11.6-14.8) H Platelet Count 229 K/UL (150-450) Mean Platelet Volume 8.8 FL (6.5-10.1) Neutrophils (%) (Auto) 82.5 % (45.0-75.0) H Lymphocytes (%) (Auto) 13.2 % (20.0-45.0) L Monocytes (%) (Auto) 3.1 % (1.0-10.0) Eosinophils (%) (Auto) 0.2 % (0.0-3.0) Basophils (%) (Auto) 1.0 % (0.0-2.0) Sodium Level 139 MMOL/L (136-145) Potassium Level 4.5 MMOL/L (3.5-5.1) Chloride Level 106 MMOL/L (98-107) Carbon Dioxide Level 25 MMOL/L (21-32) Anion Gap 8 mmol/L (5-15) Blood Urea Nitrogen 17 mg/dL (7-18) Creatinine 0.9 MG/DL (0.55-1.30) Estimat Glomerular Filtration Rate > 60 mL/min (>60) Glucose Level 102 MG/DL (74-106) Calcium Level 8.3 MG/DL (8.5-10.1) L Ionized Calcium (Measured) 1.15 mmol/L (1.10-1.35) Phosphorus Level 2.9 MG/DL (2.5-4.9) Magnesium Level 2.3 MG/DL (1.8-2.4) Microbiology Date/Time Source Procedure Growth Status 07/02/19 14:00 Lung Right AFB Specimen Processing Tissue - Final Resulted 07/02/19 14:00 Lung Right Acid Fast Bacilli Smear - Final Resulted 07/02/19 14:00 Lung Right Acid Fast Bacilli Culture Pending Resulted 07/02/19 14:00 Lung Right Gram Stain - Final Resulted 07/02/19 14:00 Lung Right Aerobic Culture - Preliminary NO GROWTH AFTER 24 HOURS Resulted 07/02/19 14:00 Lung Right Anaerobic Culture Pending Resulted Intake and Output 07/03/19 07/04/19 19:00 07:00 Intake Total 915 ml 50 ml Output Total 135 ml 40 ml Balance 780 ml 10 ml Intake Oral 360 ml 50 ml IV Total 555 ml Output Chest Tube Drainage Total 135 ml 40 ml # Voids 5 3 Objective PHYSICAL EXAMINATION: GENERAL: The patient is well-developed and well-nourished female, in no apparent distress. HEENT: Eyes, pupils are equal and responsive to light and accommodation. Extraocular movements are intact. NECK: Supple without lymphadenopathy. CHEST: Venturi mask; Lungs with coarse upper airway sounds without wheezes or rales. CARDIOVASCULAR: Regular rate. S1 and S2 normal without murmurs, rubs, or gallops. ABDOMEN: Soft, nontender, and nondistended. Positive bowel sounds. No evidence of hepatosplenomegaly. Currently, no rebound or guarding noted. EXTREMITIES: Negative for clubbing, cyanosis, or edema. RECTAL/GENITAL: Not performed. NEUROLOGIC: Cranial nerves II through XII are grossly intact without focal deficits. Assessment/Plan Assessment/Plan ASSESSMENT: This is an 79-year-old female. 1. Chest pain. 2. Fall injury. 3. Severe anemia. 4. Atrial fibrillation. 5. Polycythemia vera. 6. Hypertension. 7. Obstructive sleep apnea. 8. Coronary artery disease. 9. Hypercholesterolemia. 10. Congestive heart failure; QIB=1616 11. Right pleural hemothorax TREATMENT: 1. Chest pain. This may be secondary to fall injury. Initial troponin level was negative. Repeat troponin levels are pending. A Cardiology consultation has been obtained with Dr. Mainor Araujo. 2. Severe anemia. The patient has been typed and crossed for 2 units of packed RBCs. Transfuse when available. Severe anemia may be secondary to gastrointestinal hemorrhage, however, the patient denies melena or bright red blood per rectum. 3. Atrial fibrillation. As above, a Cardiology consultation has been obtained with Dr. Mainor Araujo. 4. Polycythemia vera. The patient is currently anemic. 5. Hypertension. Continue metoprolol as above. 6. Obstructive sleep apnea. 7. Coronary artery disease, status post myocardial infarction. As above, a Cardiology consultation has been obtained with Dr. Mainor Araujo. 8. Hypercholesteremia. 9. Congestive heart failure. 10. Pacemaker in situ. Pacemaker check is pending. 11. right thoracentesis pending 11. Discuss with patient regarding discharge planning, wants to go home, refused SNF. 12. CODE STATUS is full code. 13. Broad spectrum antibiotics with Rocephin IV. 14. Monitor cultures and laboratory. 15. DVT prophylaxis: SCD. 16. OOB to chair, PT Mobility 17. Dc Telemetry 18. S/P video assisted Thoracoscopic exploratory surgery 07/02/19; Thoracic surg=Dr. Malik 19. Right chest tube 20. ICU status Roshan Edwards MD July 04, 2019 12:59
--- NOTE | 2019-07-04 13:02 | NUR ---
NURSE NOTES: Dr. Gutiérrez called and ordered transfer to [facility] to monitor cardiac rhythm.
--- NOTE | 2019-07-04 13:05 | NUR ---
NURSE NOTES: Seen by Dr. Edwards and assessed patient. Okay to transfer to [facility].
--- NOTE | 2019-07-04 13:30 | NUR ---
NURSE NOTES: Seen by Dr. Freitas and assessed patient. No new orders at this time.
--- NOTE | 2019-07-04 13:42 | Cardiac Electrophysiology PN ---
Assessment/Plan Assessment/Plan 1. Status post [employer] pacemaker implantation and subsequent generator change by me in 07/2018. The pacemaker was re-interrogated and showed normal pacemaker function. The patient continues to have episodes of atrial fibrillation. 2. Paroxysmal atrial fibrillation with rapid ventricular response. Continue amiodarone 200 mg daily and increase metoprolol to 50 mg b.i.d. Dig 0.5 iv once Off anticoagulation in view of severe anemia, needing blood transfusion. 3. Chest pain, felt to be musculoskeletal by Dr. Araujo. The patient was ruled out for myocardial infarction. EF on 06/26/2019 was 55% 4. Urinary tract infection. 5. Hypertension. Continue metoprolol at this time. 6. Polycythemia vera, 7. Recurrent falls. . 8. Severe pulmonary hypertension. PA pressure of 71. 9. Hemothorax. S/P VATS by Dr Malik, extubated Still has chest tube DW RN Subjective Subjective Extubated yesterday. Intermittently A or V pacing. In and out of atrial fib with RVR Objective Last 24 Hour Vital Signs Date Time Temp Pulse Resp B/P (MAP) Pulse Ox O2 Delivery O2 Flow Rate FiO2 07/04/19 09:25 120 115/69 07/04/19 09:00 115 24 123/76 (92) 93 07/04/19 08:46 98 Non-Rebreather 15.0 100 07/04/19 08:00 14.0 55 07/04/19 08:00 98.2 120 22 110/72 (85) 88 07/04/19 08:00 Venturi Mask 14.0 Venturi Mask 14.0 Venturi Mask 14.0 07/04/19 07:00 125 22 108/72 (84) 84 07/04/19 06:00 109 23 108/54 (72) 94 07/04/19 05:00 95 26 110/78 (89) 94 07/04/19 04:00 98.4 124 24 98/62 (74) 94 07/04/19 04:00 4.0 07/04/19 04:00 Nasal Cannula 4.0 Nasal Cannula 4.0 Nasal Cannula 4.0 07/04/19 03:00 113 22 103/70 (81) 94 07/04/19 02:00 106 20 106/65 (79) 94 07/04/19 01:00 111 21 100/58 (72) 94 07/04/19 00:00 4.0 07/04/19 00:00 07/04/19 00:00 98.3 109 22 100/73 (82) 95 07/04/19 00:00 Nasal Cannula 4.0 Nasal Cannula 4.0 Nasal Cannula 4.0 07/03/19 23:00 107 24 95/65 (75) 95 07/03/19 22:00 109 20 102/72 (82) 96 07/03/19 21:00 113 19 104/68 (80) 97 07/03/19 20:23 113 137/82 07/03/19 20:00 98.0 122 25 137/82 (100) 91 07/03/19 20:00 Nasal Cannula 4.0 Nasal Cannula 4.0 Nasal Cannula 4.0 07/03/19 20:00 4.0 07/03/19 19:15 115 07/03/19 19:00 113 21 116/66 (83) 94 07/03/19 18:00 71 19 120/65 (83) 99 07/03/19 18:00 73 18 120/65 (83) 94 07/03/19 17:44 4.0 07/03/19 17:00 70 19 123/57 (79) 97 07/03/19 16:19 78 22 98 07/03/19 16:00 63 07/03/19 16:00 2.0 07/03/19 16:00 66 07/03/19 16:00 Nasal Cannula 2.0 Nasal Cannula 2.0 Nasal Cannula 2.0 07/03/19 16:00 97.9 63 19 124/54 (77) 98 07/03/19 15:00 60 15 115/52 (73) 97 07/03/19 14:00 60 14 108/52 (70) 97 Intake and Output 07/03/19 07/04/19 19:00 07:00 Intake Total 915 ml 50 ml Output Total 135 ml 40 ml Balance 780 ml 10 ml Intake Oral 360 ml 50 ml IV Total 555 ml Output Chest Tube Drainage Total 135 ml 40 ml # Voids 5 3 Laboratory Tests Test 07/04/19 04:00 White Blood Count 6.8 K/UL (4.8-10.8) Red Blood Count 2.96 M/UL (4.20-5.40) L Hemoglobin 9.0 G/DL (12.0-16.0) L Hematocrit 26.8 % (37.0-47.0) L Mean Corpuscular Volume 90 FL (80-99) Mean Corpuscular Hemoglobin 30.5 PG (27.0-31.0) Mean Corpuscular Hemoglobin Concent 33.7 G/DL (32.0-36.0) Red Cell Distribution Width 19.5 % (11.6-14.8) H Platelet Count 229 K/UL (150-450) Mean Platelet Volume 8.8 FL (6.5-10.1) Neutrophils (%) (Auto) 82.5 % (45.0-75.0) H Lymphocytes (%) (Auto) 13.2 % (20.0-45.0) L Monocytes (%) (Auto) 3.1 % (1.0-10.0) Eosinophils (%) (Auto) 0.2 % (0.0-3.0) Basophils (%) (Auto) 1.0 % (0.0-2.0) Sodium Level 139 MMOL/L (136-145) Potassium Level 4.5 MMOL/L (3.5-5.1) Chloride Level 106 MMOL/L (98-107) Carbon Dioxide Level 25 MMOL/L (21-32) Anion Gap 8 mmol/L (5-15) Blood Urea Nitrogen 17 mg/dL (7-18) Creatinine 0.9 MG/DL (0.55-1.30) Estimat Glomerular Filtration Rate > 60 mL/min (>60) Glucose Level 102 MG/DL (74-106) Calcium Level 8.3 MG/DL (8.5-10.1) L Ionized Calcium (Measured) 1.15 mmol/L (1.10-1.35) Phosphorus Level 2.9 MG/DL (2.5-4.9) Magnesium Level 2.3 MG/DL (1.8-2.4) Microbiology Date/Time Source Procedure Growth Status 07/02/19 14:00 Lung Right AFB Specimen Processing Tissue - Final Resulted 07/02/19 14:00 Lung Right Acid Fast Bacilli Smear - Final Resulted 07/02/19 14:00 Lung Right Acid Fast Bacilli Culture Pending Resulted 07/02/19 14:00 Lung Right Gram Stain - Final Resulted 07/02/19 14:00 Lung Right Aerobic Culture - Preliminary NO GROWTH AFTER 24 HOURS Resulted 07/02/19 14:00 Lung Right Anaerobic Culture Pending Resulted Objective HEAD AND NECK: No JVD LUNGS: Coarse rhonchi.Decreased BS on R with Chest tube draining CARDIOVASCULAR: Shows regular S1 and S2 with no gallop. ABDOMEN: Soft. EXTREMITIES: No pitting edema. SKIN: The pacemaker in the left subclavian intact. River Freitas MD July 04, 2019 13:42
[2019-07-04] MEDS ORDERED: Digoxin 0.5mg/2ml Inj IVP SCH (13:45)
[2019-07-04] MEDS: cefTRIAXone 1 GM in D5W 55 ML IVPB SCH (13:48)
--- NOTE | 2019-07-04 14:05 | Infectious Diseases Prog Note ---
Assessment/Plan Assessment/Plan Assessment: Afebrile No leukocytosis -06/21 u/a wbc 15-20, nit neg, leuk+3; UCx <10 mixed urogenital contaminants Probable PNA- COVID19 neg x1 (overall low suspicion) -06/26 CXR: Pulmonary vascular congestion, similar to mildly increased from the prior exam. No significant change in the small right pleural effusion or subtle infiltrate in the right lung base. -06/25 SARS-COV2 PCR neg -06/23 CXR: Right basilar infiltrate with trace right effusion. s/p Mechanical fall Rib, abdominal pain- 2ry to R rib fractures and large R pleural effusion/ hemothorax ?Post-op pos-obstructive PNA -07/03 CXR: . Interval development of diffuse opacification of the left lung. This raises possibility of having developed a left mainstem bronchus obstruction with postobstructive atelectasis. Alternatively a very large left effusion or severe left-sided pneumonia could have similar appearance, although unlikely to have developed since the prior exam. -07/01 SP Flexible bronchoscopy. Right video-assisted thoracoscopic surgery. Intrapleural pneumolysis.Evacuation of right intrathoracic blood. Intercostal nerve block. --OR Findings: Minimal amount of mucopurulent secretion was lavaged and suctioned clear. Righ hemithorax: There was noted to be some adhesions There was noted to be no protrusion of any fractured ribs into the intrathoracic cavity as the entire parietal pleura appears to be intact. -- cx NTD -06/25 Chest US: Small right pleural effusion, decreased compared to the prior exam. No significant pocket for thoracentesis. -06/22 Chest US: Positive for right pleural effusion -06/[address]: 1. 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 No acute intracranial pathology is detected. CT C/abd/p:No evidence of acute injury to the abdominal or pelvic viscera. Somewhat limited study due to motion artifact. Cholelithiasis. Acute posterior medial lower right rib fractures. Moderate to large right pleural effusion, possibly containing an element of the hemothorax. Cardiomegaly.ASCVD. No pneumothoraces. Acute on chronic anemia -08/06/18 sp EGD: Normal upper endoscopy, status post biopsy. -path: mild chronic gastritis, no H. pylori identified pAfib hx of rib fractures Sinus node dysfunction s/p PPM (batter exchange July 2018) s/p KELI GERD polycythemia vera HLD MDD anemia NSTEMI s/p normal cardiac catheterization 2019 HTN KELVIN dCHF Plan: -Switch empiric Ceftriaxone #9 to Zosyn given increased O2 requirements -f/u cx -Monitor CBC/CMP, temperatures -aspiration precautions -ok to dc COVID19 isolation -ICU/ETT care -Pulm, CT sx, cards f/u Thank you for consulting [facility]. Will contiue to follow along with you. Discussed with RN Subjective Allergies: Coded Allergies: No Known Allergies (Unverified , 04/24/18) Subjective afebrile now on NRB 15L, Fio2 100% Objective Vital Signs Last 24 Hour Vital Signs Date Time Temp Pulse Resp B/P (MAP) Pulse Ox O2 Delivery O2 Flow Rate FiO2 07/04/19 13:50 135 07/04/19 09:25 120 115/69 07/04/19 09:00 115 24 123/76 (92) 93 07/04/19 08:46 98 Non-Rebreather 15.0 100 07/04/19 08:00 14.0 55 07/04/19 08:00 98.2 120 22 110/72 (85) 88 07/04/19 08:00 Venturi Mask 14.0 Venturi Mask 14.0 Venturi Mask 14.0 07/04/19 07:00 125 22 108/72 (84) 84 07/04/19 06:00 109 23 108/54 (72) 94 07/04/19 05:00 95 26 110/78 (89) 94 07/04/19 04:00 98.4 124 24 98/62 (74) 94 07/04/19 04:00 4.0 07/04/19 04:00 Nasal Cannula 4.0 Nasal Cannula 4.0 Nasal Cannula 4.0 07/04/19 03:00 113 22 103/70 (81) 94 07/04/19 02:00 106 20 106/65 (79) 94 07/04/19 01:00 111 21 100/58 (72) 94 07/04/19 00:00 4.0 07/04/19 00:00 07/04/19 00:00 98.3 109 22 100/73 (82) 95 07/04/19 00:00 Nasal Cannula 4.0 Nasal Cannula 4.0 Nasal Cannula 4.0 07/03/19 23:00 107 24 95/65 (75) 95 07/03/19 22:00 109 20 102/72 (82) 96 07/03/19 21:00 113 19 104/68 (80) 97 07/03/19 20:23 113 137/82 07/03/19 20:00 98.0 122 25 137/82 (100) 91 07/03/19 20:00 Nasal Cannula 4.0 Nasal Cannula 4.0 Nasal Cannula 4.0 07/03/19 20:00 4.0 07/03/19 19:15 115 07/03/19 19:00 113 21 116/66 (83) 94 07/03/19 18:00 71 19 120/65 (83) 99 07/03/19 18:00 73 18 120/65 (83) 94 07/03/19 17:44 4.0 07/03/19 17:00 70 19 123/57 (79) 97 07/03/19 16:19 78 22 98 07/03/19 16:00 63 07/03/19 16:00 2.0 07/03/19 16:00 66 07/03/19 16:00 Nasal Cannula 2.0 Nasal Cannula 2.0 Nasal Cannula 2.0 07/03/19 16:00 97.9 63 19 124/54 (77) 98 07/03/19 15:00 60 15 115/52 (73) 97 Height (Feet): 5 Height (Inches): 0.00 Weight (Pounds): 135 Objective General Appearance: no acute distress, other - elderly female in NAD HEENT: normocephalic, atraumatic, anicteric Respiratory: decreased breath sounds Cardiovascular: normal rate Abdomen: normal bowel sounds, soft, non tender Extremities: no edema Neurologic: abnormal gait - unsteady, alert, responsive Musculoskeletal: atrophy Microbiology Date/Time Source Procedure Growth Status 07/02/19 14:00 Lung Right AFB Specimen Processing Tissue - Final Resulted 07/02/19 14:00 Lung Right Acid Fast Bacilli Smear - Final Resulted 07/02/19 14:00 Lung Right Acid Fast Bacilli Culture Pending Resulted 07/02/19 14:00 Lung Right Gram Stain - Final Resulted 07/02/19 14:00 Lung Right Aerobic Culture - Preliminary NO GROWTH AFTER 24 HOURS Resulted 07/02/19 14:00 Lung Right Anaerobic Culture Pending Resulted Laboratory Tests Test 07/04/19 04:00 White Blood Count 6.8 K/UL (4.8-10.8) Red Blood Count 2.96 M/UL (4.20-5.40) L Hemoglobin 9.0 G/DL (12.0-16.0) L Hematocrit 26.8 % (37.0-47.0) L Mean Corpuscular Volume 90 FL (80-99) Mean Corpuscular Hemoglobin 30.5 PG (27.0-31.0) Mean Corpuscular Hemoglobin Concent 33.7 G/DL (32.0-36.0) Red Cell Distribution Width 19.5 % (11.6-14.8) H Platelet Count 229 K/UL (150-450) Mean Platelet Volume 8.8 FL (6.5-10.1) Neutrophils (%) (Auto) 82.5 % (45.0-75.0) H Lymphocytes (%) (Auto) 13.2 % (20.0-45.0) L Monocytes (%) (Auto) 3.1 % (1.0-10.0) Eosinophils (%) (Auto) 0.2 % (0.0-3.0) Basophils (%) (Auto) 1.0 % (0.0-2.0) Sodium Level 139 MMOL/L (136-145) Potassium Level 4.5 MMOL/L (3.5-5.1) Chloride Level 106 MMOL/L (98-107) Carbon Dioxide Level 25 MMOL/L (21-32) Anion Gap 8 mmol/L (5-15) Blood Urea Nitrogen 17 mg/dL (7-18) Creatinine 0.9 MG/DL (0.55-1.30) Estimat Glomerular Filtration Rate > 60 mL/min (>60) Glucose Level 102 MG/DL (74-106) Calcium Level 8.3 MG/DL (8.5-10.1) L Ionized Calcium (Measured) 1.15 mmol/L (1.10-1.35) Phosphorus Level 2.9 MG/DL (2.5-4.9) Magnesium Level 2.3 MG/DL (1.8-2.4) Current Medications Medications (Trade) Dose Ordered Sig/Escobar Route PRN Reason Start Time Stop Time Status Last Admin Dose Admin Acetaminophen (Tylenol) 650 mg Q4H PRN ORAL T>100.5 07/02/19 14:00 07/22/19 13:59 Acetaminophen/ Hydrocodone Bitart ([place] 10/325) 1 tab Q4H PRN ORAL Severe Pain (Pain Scale 7-10) 07/02/19 14:00 07/09/19 13:59 Acetaminophen/ Hydrocodone Bitart ([place] 5/325) 1 tab Q4H PRN ORAL Moderate Pain (Pain Scale 4-6) 07/02/19 15:00 07/09/19 14:59 07/03/19 20:24 Albuterol/ Ipratropium (Albuterol/ Ipratropium) 3 ml Q4HRT PRN HHN sob 07/04/19 11:00 07/09/19 10:59 Amiodarone HCl (Cordarone) 200 mg QHS ORAL 07/02/19 21:00 09/30/19 20:59 07/03/19 20:23 Ceftriaxone Sodium 1 gm/ Dextrose 55 ml @ 110 mls/hr Q24H IVPB 07/02/19 14:00 07/06/19 13:59 07/04/19 13:48 Dextrose (Dextrose 50%) 25 ml Q30M PRN IV Hypoglycemia 07/02/19 14:00 09/20/19 18:59 Dextrose (Dextrose 50%) 50 ml Q30M PRN IV Hypoglycemia 07/02/19 14:00 09/20/19 18:59 Digoxin (Lanoxin) 0.125 mg DAILY ORAL 07/05/19 09:00 10/03/19 08:59 Digoxin (Lanoxin) 0.5 mg ONCE IVP 07/04/19 13:45 07/04/19 15:00 07/04/19 13:50 Hydroxyzine HCl (Atarax) 25 mg Q8H PRN ORAL Itching 07/02/19 14:00 07/30/19 13:59 Lorazepam (Ativan 2mg/ml 1ml) 2 mg Q3H PRN IV For Anxiety 07/03/19 00:45 07/10/19 00:44 07/04/19 07:38 Metoprolol Tartrate (Lopressor) 50 mg EVERY 12 HOURS ORAL 07/04/19 21:00 09/30/19 20:59 Alejandrina Arrieta M.D. July 04, 2019 14:05
[2019-07-04] MEDS: Piperacillin/Tazobactam 3.375 GM in NS 110 ML IVPB SCH ×2 (15:32→22:17)
--- NOTE | 2019-07-04 15:51 | NUR ---
NURSE NOTES: Seen by Dr. Arrieta and informed pt has fever. Blood culture ordered.
--- NOTE | 2019-07-04 16:29 | Cardiology Progress Note ---
Assessment/Plan Assessment/Plan The patient is resting, she is in ICU, is in atrial fibrillation since last night, her BP is stable, but her HR is around 120 BPM, she is on b-blockers, Not a candidate for anticaogulation, due to hemothorax will follow her BP on Metoprolol Subjective Subjective Coverage for Dr Araujo the patient is resting comfortably, she is no O2 mask arousable, reports no chest pain Objective Last 24 Hour Vital Signs Date Time Temp Pulse Resp B/P (MAP) Pulse Ox O2 Delivery O2 Flow Rate FiO2 07/04/19 16:00 Venturi Mask 14.0 Venturi Mask 14.0 Venturi Mask 14.0 07/04/19 16:00 114 07/04/19 16:00 14.0 55 07/04/19 16:00 101.0 106 24 114/60 (78) 95 07/04/19 15:00 120 24 120/76 (91) 93 07/04/19 14:00 122 24 123/76 (92) 96 07/04/19 13:50 135 07/04/19 13:00 116 24 116/64 (81) 93 07/04/19 12:00 99.0 130 24 123/76 (92) 94 07/04/19 12:00 126 07/04/19 12:00 Venturi Mask 14.0 Venturi Mask 14.0 Venturi Mask 14.0 07/04/19 12:00 14.0 55 07/04/19 11:00 134 24 118/60 (79) 93 07/04/19 10:00 118 24 120/76 (91) 97 07/04/19 09:25 120 115/69 07/04/19 09:00 115 24 123/76 (92) 93 07/04/19 08:46 98 Non-Rebreather 15.0 100 07/04/19 08:00 14.0 55 07/04/19 08:00 98.2 120 22 110/72 (85) 88 07/04/19 08:00 Venturi Mask 14.0 Venturi Mask 14.0 Venturi Mask 14.0 07/04/19 08:00 122 07/04/19 07:00 125 22 108/72 (84) 84 07/04/19 06:00 109 23 108/54 (72) 94 07/04/19 05:00 95 26 110/78 (89) 94 07/04/19 04:00 98.4 124 24 98/62 (74) 94 07/04/19 04:00 4.0 07/04/19 04:00 Nasal Cannula 4.0 Nasal Cannula 4.0 Nasal Cannula 4.0 07/04/19 03:00 113 22 103/70 (81) 94 07/04/19 02:00 106 20 106/65 (79) 94 07/04/19 01:00 111 21 100/58 (72) 94 07/04/19 00:00 4.0 07/04/19 00:00 07/04/19 00:00 98.3 109 22 100/73 (82) 95 07/04/19 00:00 Nasal Cannula 4.0 Nasal Cannula 4.0 Nasal Cannula 4.0 07/03/19 23:00 107 24 95/65 (75) 95 07/03/19 22:00 109 20 102/72 (82) 96 07/03/19 21:00 113 19 104/68 (80) 97 07/03/19 20:23 113 137/82 07/03/19 20:00 98.0 122 25 137/82 (100) 91 07/03/19 20:00 Nasal Cannula 4.0 Nasal Cannula 4.0 Nasal Cannula 4.0 07/03/19 20:00 4.0 07/03/19 19:15 115 07/03/19 19:00 113 21 116/66 (83) 94 07/03/19 18:00 71 19 120/65 (83) 99 07/03/19 18:00 73 18 120/65 (83) 94 07/03/19 17:44 4.0 07/03/19 17:00 70 19 123/57 (79) 97 General Appearance: lethargic EENT: PERRL/EOMI Neck: no JVD Rhythm: Afib Cardiovascular: tachycardia, systolic murmur Respiratory/Chest: crackles/rales Abdomen: soft Intake and Output 07/03/19 07/04/19 19:00 07:00 Intake Total 915 ml 50 ml Output Total 135 ml 40 ml Balance 780 ml 10 ml Intake Oral 360 ml 50 ml IV Total 555 ml Output Chest Tube Drainage Total 135 ml 40 ml # Voids 5 3 Laboratory Tests Test 07/04/19 04:00 White Blood Count 6.8 K/UL (4.8-10.8) Red Blood Count 2.96 M/UL (4.20-5.40) L Hemoglobin 9.0 G/DL (12.0-16.0) L Hematocrit 26.8 % (37.0-47.0) L Mean Corpuscular Volume 90 FL (80-99) Mean Corpuscular Hemoglobin 30.5 PG (27.0-31.0) Mean Corpuscular Hemoglobin Concent 33.7 G/DL (32.0-36.0) Red Cell Distribution Width 19.5 % (11.6-14.8) H Platelet Count 229 K/UL (150-450) Mean Platelet Volume 8.8 FL (6.5-10.1) Neutrophils (%) (Auto) 82.5 % (45.0-75.0) H Lymphocytes (%) (Auto) 13.2 % (20.0-45.0) L Monocytes (%) (Auto) 3.1 % (1.0-10.0) Eosinophils (%) (Auto) 0.2 % (0.0-3.0) Basophils (%) (Auto) 1.0 % (0.0-2.0) Sodium Level 139 MMOL/L (136-145) Potassium Level 4.5 MMOL/L (3.5-5.1) Chloride Level 106 MMOL/L (98-107) Carbon Dioxide Level 25 MMOL/L (21-32) Anion Gap 8 mmol/L (5-15) Blood Urea Nitrogen 17 mg/dL (7-18) Creatinine 0.9 MG/DL (0.55-1.30) Estimat Glomerular Filtration Rate > 60 mL/min (>60) Glucose Level 102 MG/DL (74-106) Calcium Level 8.3 MG/DL (8.5-10.1) L Ionized Calcium (Measured) 1.15 mmol/L (1.10-1.35) Phosphorus Level 2.9 MG/DL (2.5-4.9) Magnesium Level 2.3 MG/DL (1.8-2.4) Microbiology Date/Time Source Procedure Growth Status 07/02/19 14:00 Lung Right AFB Specimen Processing Tissue - Final Resulted 07/02/19 14:00 Lung Right Acid Fast Bacilli Smear - Final Resulted 07/02/19 14:00 Lung Right Acid Fast Bacilli Culture Pending Resulted 07/02/19 14:00 Lung Right Gram Stain - Final Resulted 07/02/19 14:00 Lung Right Aerobic Culture - Preliminary NO GROWTH AFTER 24 HOURS Resulted 07/02/19 14:00 Lung Right Anaerobic Culture Pending Resulted Humaira Gutiérrez MD July 04, 2019 16:29
--- NOTE | 2019-07-04 16:42 | NUR ---
NURSE NOTES: Bed bath given.
--- NOTE | 2019-07-04 18:00 | NUR ---
NURSE NOTES: Patient's HR is 80s afib. SBP noted 80s. Asymptomatic. Started NS 250ml bolus. Called Dr. Freitas and left message.
[2019-07-04] MEDS ORDERED: NS 250 ML IVPB ONE (18:15)
--- NOTE | 2019-07-04 19:05 | NUR ---
HAND-OFF: Report given to IRA Westfall. Endorsed plan of care.
[2019-07-04] MEDS: D5NS 1,000 ML IV SCH (19:30)
--- NOTE | 2019-07-04 19:40 | NUR ---
NURSE NOTES: LE:PATIENT ASLEEP, RESPIRATION REGULAR, FIO2 55% VENTURI MASK, O2 SATURATION OVER 98% NOTED, HR 80'S/MIN A-FIB WITH PACED, ABDOMEN SOFT, CHEST TUBE TO RIGHT SIDE, CLEAN AND DRIED DRESSING STATUS, SEROUS DISCHARGE OUTED WITH LOWER CONTINUE SUCTION, PPL TO LEFT FA, INTACT AND PATENT, KEPT HOB 30 DEGREES, MADE LOWER BED POSITION, ON BED ALARM AND LOCKED, CALL LIGHT WITHIN REACH, WILL CONTINUE TO MONITOR.
--- NOTE | 2019-07-04 20:34 | NUR ---
NURSE NOTES: PATIENT REMOVED O2 MASK, DESATURATION 84% NOTED THAT PATIENT DID NOT FOLLOW COMMANDS, APPLIED 2 POINT SOFT RESTRAINTS, WILL CONTINUE TO MONITOR.
[2019-07-04] MEDS: Amiodarone 200mg tab ORAL SCH (21:00)
[2019-07-04] MEDS: Metoprolol Tartrate 50mg tab ORAL SCH (21:00)
--- NOTE | 2019-07-04 22:10 | NUR ---
NURSE NOTES: REPOSITIONED, ORAL CARE WAS DONE, WILL CONTINUE TO MONITOR.
--- NOTE | 2019-07-04 23:50 | NUR ---
NURSE NOTES: ONGOING IV FLUID D5 NS AT 75ML/HR VIA LEFT FA PPL, NO PAIN OR DISTRESS NOTED AT THIS TIME, WILL CONTINUE PLAN OF CARE.
[2019-07-05] VITALS (23 sets, daily range): BP systolic 85–139; BP diastolic 46–78
--- NOTE | 2019-07-05 01:49 | NUR ---
NURSE NOTES: PATIENT ASLEEP STATUS, CHEST TUBE INTACT, CLEAN AND DRIED DRESSING STATUS, SEEN SEROUS DISCHARGE IN THE LINE, NO PAIN OR SOB NOTED AT THIS TIME.
--- NOTE | 2019-07-05 04:00 | NUR ---
NURSE NOTES: MORNING CARE AND ORAL CARE WAS DONE, NO BM STATUS.
[2019-07-05] MEDS: Albuterol/Ipratropium 3ml neb HHN PRN ×2 (04:36→21:46)
[2019-07-05] MEDS: Piperacillin/Tazobactam 3.375 GM in NS 110 ML IVPB SCH ×3 (05:32→21:33)
[2019-07-05 05:44] LABS: BASOPHILS % (AUTO) 1.4 % (0.0-2.0); HEMATOCRIT 24.3 % (37.0-47.0); HEMOGLOBIN 8.2 G/DL (12.0-16.0); LYMPHOCYTES % (AUTO) 9.9 % (20.0-45.0); MEAN CORPUSCULAR VOLUME 90 FL (80-99); MONOCYTES % (AUTO) 5.4 % (1.0-10.0); NEUTROPHILS % (AUTO) 83.3 % (45.0-75.0); PLATELET COUNT 191 K/UL (150-450); RED BLOOD COUNT 2.68 M/UL (4.20-5.40); RED CELL DISTRIBUTION WIDTH 18.1 % (11.6-14.8); WHITE BLOOD COUNT 6.3 K/UL (4.8-10.8)
[2019-07-05 06:10] LABS: ANION GAP 8 mmol/L (5-15); BLOOD UREA NITROGEN 20 mg/dL (7-18); CALCIUM 8.2 MG/DL (8.5-10.1); CARBON DIOXIDE 25 MMOL/L (21-32); CHLORIDE 107 MMOL/L (98-107); CREATININE 0.8 MG/DL (0.55-1.30); POTASSIUM 4.3 MMOL/L (3.5-5.1); SODIUM 140 MMOL/L (136-145)
--- NOTE | 2019-07-05 06:20 | NUR ---
NURSE NOTES: PATIENT ASLEEP STATUS, NO ACUTE DISTRESS NOTED AT THIS TIME.
--- NOTE | 2019-07-05 06:50 | NUR ---
NURSE NOTES: LE; ONGOING SCD'S TO BOTH LOWER LEGS.
--- NOTE | 2019-07-05 07:29 | NUR ---
NURSE NOTES: Received report from IRA Westfall. Patient awake and responsive to verbal, able to follow commands. On O2 FiO2 55% via venturi mask. Left forearm 22G IV intact and running with D5NS @ 75ml/hr. Bilateral soft wrist bands on. Both hands are warm to touch. Kept dry, clean, comfortable and HOB>30. Will continue plan of care.
--- NOTE | 2019-07-05 07:30 | NUR ---
HAND-OFF: Report given to IRA KAT.
--- NOTE | 2019-07-05 07:52 | Pulmonolgy Critical Care Note ---
Critical Care - Asmt/Plan Assessment/Plan: ASSESSMENT s/p mechanical fall with acute multiple rib fractures Right pleural effusion , moderate to large with probable associated hemothorax Right hemothorax s/p flexible bronchoscopy, right video-assisted thoracoscopic surgery, intrapleural pneumolysis, evacuation of right intrathoracic blood, intercostal nerve block 07/01 Acute resp failure ( remained intubated after surgery), s/p extubation 07/02, now on VM Right sided chest tube Probably pneumonia Atelectasis, collapsed L lung COPD Suspected COVID 19 - not detected History of KELVIN PAF CHF with diastolic dysfunction SSS, status post pacemaker/interrogated, normal fx Profound anemia, s/p 3 u PRBC Hx of polycythemia vera Severe pulmonary HTN PLAN OF CARE ICU O2 titrate to keep sat above 90%, pulm toilet CXR 07/04 1. Interval improvement of the left pleural effusion, with a moderate size residual left effusion seen. 2. Stable positioning of the right-sided chest tube. 3. Opacification in the left lower lung, which may be related to atelectasis versus pneumonia. 4. No significant change in the perihilar and right lower lung infiltrates. 5. Persistent subcutaneous emphysema throughout the right chest wall. ABG not done 07/03 as ordered, do today and in am weaned down to VM from 100% NRM Venous Duplex BLE - not done, place SCD if negative Chest tube with small output, discussed with surgeon, will probably remove this am will discuss with surgeon if can start a/c with LMWH fup with CXR in am more alert start IS - discussed with nurse Levi and CN CT head - no acute IC pathology CT C/A/P noted ; 06/22 US chest noted, m to l R pleural effusion 06/25 US chest with Small right pleural effusion, decreased compared to the prior exam. No significant pocket for thoracentesis. SARS COV-2 by PCR 06/25 not detected abx as per ID, now on Zosyn intra-oper cx NGTD, AFB smear NGT off anticoagulation2 to anemia; continue amiodarone and B, s/p Dig x 1 per cardio, HR better, mild tachy cardio follows PRIOR: seen and evaluated by CT surgeon thoracentesis not performed given small pocket 06/25 per US chest may need VATS for washout. ECHO with pEF and RVSP of 71 c/w severe pulm HTN CXR 06/26 showed Pulmonary vascular congestion, similar to mildly increased from the prior exam. No significant change in the small right pleural effusion or subtle infiltrate in the right lung base. s/p 3 u PRBC, HH remains stable UCX + mixed urogenital contaminant on empiric Ceftriaxone per ID recs, completing today 07/03 pain management supportive care fall precaution case discussed and evaluated by supervising physician Critical Care - Objective Last 24 Hour Vital Signs Date Time Temp Pulse Resp B/P (MAP) Pulse Ox O2 Delivery O2 Flow Rate FiO2 07/05/19 07:00 106 20 118/78 (91) 99 07/05/19 06:00 103 19 111/68 (82) 99 07/05/19 05:00 98 18 122/70 (87) 99 07/05/19 04:36 98 22 100 Venturi Mask 15.0 55 97 22 97 07/05/19 04:00 98.6 98 22 108/66 (80) 96 07/05/19 04:00 14.0 55 07/05/19 04:00 Venturi Mask 14.0 Venturi Mask 14.0 Venturi Mask 14.0 07/05/19 03:11 98 07/05/19 03:00 97 19 107/60 (76) 98 07/05/19 02:00 97 21 116/59 (78) 99 07/05/19 01:00 90 18 109/47 (67) 100 07/05/19 00:00 Venturi Mask 14.0 Venturi Mask 14.0 Venturi Mask 14.0 07/05/19 00:00 90 07/05/19 00:00 99.1 90 13 101/55 (70) 99 07/05/19 00:00 14.0 55 07/04/19 23:30 86 15 99/50 (66) 98 07/04/19 23:00 87 18 101/52 (68) 99 07/04/19 22:00 87 22 109/63 (78) 99 07/04/19 21:30 89 18 109/50 (69) 99 07/04/19 21:00 89 18 106/61 (76) 99 07/04/19 21:00 83 109/63 07/04/19 20:30 87 21 102/58 (73) 95 07/04/19 20:03 98 Non-Rebreather 15.0 100 07/04/19 20:00 99.4 83 18 106/51 (69) 99 07/04/19 20:00 14.0 55 07/04/19 20:00 Venturi Mask 14.0 Venturi Mask 14.0 Venturi Mask 14.0 07/04/19 19:43 86 20 96/60 (72) 98 07/04/19 19:38 85 07/04/19 19:30 87 20 90/43 (59) 94 07/04/19 19:00 83 19 97/47 (64) 94 07/04/19 18:45 82 20 95 07/04/19 18:30 85 22 91/40 (57) 77 07/04/19 18:21 86 18 93/53 (66) 99 07/04/19 18:12 85 84/41 (55) 07/04/19 18:00 84 24 84/41 (55) 99 07/04/19 17:00 99.3 106 24 102/62 (75) 96 07/04/19 16:00 Venturi Mask 14.0 Venturi Mask 14.0 Venturi Mask 14.0 07/04/19 16:00 114 07/04/19 16:00 14.0 55 07/04/19 16:00 101.0 106 24 114/60 (78) 95 07/04/19 15:55 99.5 07/04/19 15:00 120 24 120/76 (91) 93 07/04/19 14:00 122 24 123/76 (92) 96 07/04/19 13:50 135 07/04/19 13:00 116 24 116/64 (81) 93 07/04/19 12:00 99.0 130 24 123/76 (92) 94 07/04/19 12:00 126 07/04/19 12:00 Venturi Mask 14.0 Venturi Mask 14.0 Venturi Mask 14.0 07/04/19 12:00 14.0 55 07/04/19 11:00 134 24 118/60 (79) 93 07/04/19 10:00 118 24 120/76 (91) 97 07/04/19 09:25 120 115/69 07/04/19 09:00 115 24 123/76 (92) 93 07/04/19 08:46 98 Non-Rebreather 15.0 100 07/04/19 08:00 14.0 55 07/04/19 08:00 98.2 120 22 110/72 (85) 88 07/04/19 08:00 Venturi Mask 14.0 Venturi Mask 14.0 Venturi Mask 14.0 07/04/19 08:00 122 Objective: Condition: critical HEENT: atraumatic, VM 55% Lungs: rhonchi - bilaterally ; few cracking sounds on the right, CT R sided to Hemovac, minimal output, surgical dressing over the site C/D/I Heart: HR/BP stable, tachycardic, ST on tele Abdomen: soft, non-tender, active bowel sounds, feeding tube Extremities: No edema Micro: Microbiology Date/Time Source Procedure Growth Status 07/02/19 14:00 Lung Right AFB Specimen Processing Tissue - Final Resulted 07/02/19 14:00 Lung Right Acid Fast Bacilli Smear - Final Resulted 07/02/19 14:00 Lung Right Acid Fast Bacilli Culture Pending Resulted 07/02/19 14:00 Lung Right Gram Stain - Final Resulted 07/02/19 14:00 Lung Right Aerobic Culture - Preliminary NO GROWTH AFTER 24 HOURS Resulted 07/02/19 14:00 Lung Right Anaerobic Culture Pending Resulted Accucheck: 103 Critical Care - Subjective ROS Limited/Unobtainable: Yes Interval Events: down to 55% VM from 100% NRM fever 07/03 at 16:00 , currently afebrile no leukocytosis CT 07/03 -120 ml output more alert Condition: critical EKG Rhythm: Atrial Fibrillation - paced rhythm FI02: 55 Vent Support Breath Rate: 18 Vent Support Mode: IMV/SIMV Vent Tidal Volume: 400 Sputum Amount: Scant PEEP: 5 PIP: 16 Fluids: D5NS at 75 I&O: Intake and Output 07/04/19 07/05/19 19:00 07:00 Intake Total 422.8 ml 1013.5 ml Output Total 100 ml 20 ml Balance 322.8 ml 993.5 ml Intake Oral 50 ml 0 ml IV Total 372.8 ml 1013.5 ml Output Chest Tube Drainage Total 100 ml 20 ml # Voids 2 2 CXR: CXR 07/03 1. Interval development of diffuse opacification of the left lung. This raises possibility of having developed a left mainstem bronchus obstruction with postobstructive atelectasis. Alternatively a very large left effusion or severe left-sided pneumonia could have similar appearance, although unlikely to have developed since the prior exam. 2. Interval extubation. 3. Unchanged positioning of a right-sided chest tube. 4. No significant change in subcutaneous changes emphysema along the right lateral chest wall. CXR for this am pending ET-Tube: 7.5 ET Position: 23 Cait Melchor NP July 05, 2019 07:52
[2019-07-05] MEDS ORDERED: Digoxin 0.125mg tab ORAL SCH (09:00)
[2019-07-05] MEDS: D5NS 1,000 ML IV SCH ×2 (09:02→21:34)
[2019-07-05] MEDS: Metoprolol Tartrate 50mg tab ORAL SCH ×2 (09:02→21:00)
--- NOTE | 2019-07-05 09:20 | NUR ---
NURSE NOTES: All due med given.
[2019-07-05] MEDS ORDERED: NS 500ML ONE (09:31)
[2019-07-05] MEDS ORDERED: D5NS 1000ml IV ONE (09:31)
--- NOTE | 2019-07-05 11:09 | Diagnostic Imaging Report ---
EXAM: XR Chest, 1 View CLINICAL HISTORY: Shortness of breath TECHNIQUE: Frontal view of the chest. COMPARISON: Chest x-ray dated 07/04/19, 07/03/19 FINDINGS: Lungs: Opacification in the left lower lung, which may be related to atelectasis versus pneumonia. No significant change in the perihilar and right lower lung infiltrates. Pleural space: Interval improvement of the left pleural effusion, with a moderate size residual left effusion seen. No visible pneumothorax. Heart: Cardiac silhouette is partially obscured. Mediastinum: Unremarkable. Bones/joints: Degenerative changes throughout the visualized shoulder and spine. Soft tissues: Persistent subcutaneous emphysema throughout the right chest wall. Tubes, lines and devices: Stable positioning of the right-sided chest tube. Cardiac pacer in the left chest wall with the lead tips in the right atrium and right ventricle regions. Telemetry leads overlie the thorax. IMPRESSION: 1. Interval improvement of the left pleural effusion, with a moderate size residual left effusion seen. 2. Stable positioning of the right-sided chest tube. 3. Opacification in the left lower lung, which may be related to atelectasis versus pneumonia. 4. No significant change in the perihilar and right lower lung infiltrates. 5. Persistent subcutaneous emphysema throughout the right chest wall.
--- NOTE | 2019-07-05 13:10 | NUR ---
NURSE NOTES: Seen by Dr. Estrada and assessed patient. Chest tube connected to water seal. Removal of chest tube will be tomorrow or the day after tomorrow. Okay to start Heparin 5000 unit SubQ q12hr for DVT PPX. Will continue to monitor closely.
--- NOTE | 2019-07-05 13:37 | Surgery Progress Note ---
Surgery Progress Note Subjective Additional Comments chest tube to water seal today cxr improved doing okay comfortable talkative Objective Last 24 Hour Vital Signs Date Time Temp Pulse Resp B/P (MAP) Pulse Ox O2 Delivery O2 Flow Rate FiO2 07/05/19 09:03 110 07/05/19 09:02 110 114/72 07/05/19 09:00 109 20 113/65 (81) 95 07/05/19 08:18 95 Venturi Mask 14.0 55 07/05/19 08:00 4.0 07/05/19 08:00 98.4 102 20 139/70 (93) 95 07/05/19 08:00 Nasal Cannula 4.0 Nasal Cannula 4.0 Nasal Cannula 4.0 07/05/19 07:00 106 20 118/78 (91) 99 07/05/19 06:00 103 19 111/68 (82) 99 07/05/19 05:00 98 18 122/70 (87) 99 07/05/19 04:36 98 22 100 Venturi Mask 15.0 55 97 22 97 07/05/19 04:00 98.6 98 22 108/66 (80) 96 07/05/19 04:00 14.0 55 07/05/19 04:00 Venturi Mask 14.0 Venturi Mask 14.0 Venturi Mask 14.0 07/05/19 03:11 98 07/05/19 03:00 97 19 107/60 (76) 98 07/05/19 02:00 97 21 116/59 (78) 99 07/05/19 01:00 90 18 109/47 (67) 100 07/05/19 00:00 Venturi Mask 14.0 Venturi Mask 14.0 Venturi Mask 14.0 07/05/19 00:00 90 07/05/19 00:00 99.1 90 13 101/55 (70) 99 07/05/19 00:00 14.0 55 07/04/19 23:30 86 15 99/50 (66) 98 07/04/19 23:00 87 18 101/52 (68) 99 07/04/19 22:00 87 22 109/63 (78) 99 07/04/19 21:30 89 18 109/50 (69) 99 07/04/19 21:00 89 18 106/61 (76) 99 07/04/19 21:00 83 109/63 5/23/20 20:30 87 21 102/58 (73) 95 07/04/19 20:03 98 Non-Rebreather 15.0 100 07/04/19 20:00 99.4 83 18 106/51 (69) 99 07/04/19 20:00 14.0 55 07/04/19 20:00 Venturi Mask 14.0 Venturi Mask 14.0 Venturi Mask 14.0 07/04/19 19:43 86 20 96/60 (72) 98 07/04/19 19:38 85 07/04/19 19:30 87 20 90/43 (59) 94 07/04/19 19:00 83 19 97/47 (64) 94 07/04/19 18:45 82 20 95 07/04/19 18:30 85 22 91/40 (57) 77 07/04/19 18:21 86 18 93/53 (66) 99 07/04/19 18:12 85 84/41 (55) 07/04/19 18:00 84 24 84/41 (55) 99 07/04/19 17:00 99.3 106 24 102/62 (75) 96 07/04/19 16:00 Venturi Mask 14.0 Venturi Mask 14.0 Venturi Mask 14.0 07/04/19 16:00 114 07/04/19 16:00 14.0 55 07/04/19 16:00 101.0 106 24 114/60 (78) 95 07/04/19 15:55 99.5 07/04/19 15:00 120 24 120/76 (91) 93 07/04/19 14:00 122 24 123/76 (92) 96 07/04/19 13:50 135 I&O Intake and Output 07/04/19 07/05/19 19:00 07:00 Intake Total 422.8 ml 1013.5 ml Output Total 100 ml 20 ml Balance 322.8 ml 993.5 ml Intake Oral 50 ml 0 ml IV Total 372.8 ml 1013.5 ml Output Chest Tube Drainage Total 100 ml 20 ml # Voids 2 2 Dressing: other Wound: other Drains: other Cardiovascular: RSR Respiratory: decreased breath sounds Abdomen: soft, non-tender, present bowel sounds Extremities: no tenderness, no cyanosis Laboratory Tests Test 07/05/19 03:33 5/24/20 08:00 White Blood Count 6.3 K/UL (4.8-10.8) Red Blood Count 2.68 M/UL (4.20-5.40) L Hemoglobin 8.2 G/DL (12.0-16.0) L Hematocrit 24.3 % (37.0-47.0) L Mean Corpuscular Volume 90 FL (80-99) Mean Corpuscular Hemoglobin 30.4 PG (27.0-31.0) Mean Corpuscular Hemoglobin Concent 33.6 G/DL (32.0-36.0) Red Cell Distribution Width 18.1 % (11.6-14.8) H Platelet Count 191 K/UL (150-450) Mean Platelet Volume 8.5 FL (6.5-10.1) Neutrophils (%) (Auto) 83.3 % (45.0-75.0) H Lymphocytes (%) (Auto) 9.9 % (20.0-45.0) L Monocytes (%) (Auto) 5.4 % (1.0-10.0) Eosinophils (%) (Auto) 0.0 % (0.0-3.0) Basophils (%) (Auto) 1.4 % (0.0-2.0) Sodium Level 140 MMOL/L (136-145) Potassium Level 4.3 MMOL/L (3.5-5.1) Chloride Level 107 MMOL/L (98-107) Carbon Dioxide Level 25 MMOL/L (21-32) Anion Gap 8 mmol/L (5-15) Blood Urea Nitrogen 20 mg/dL (7-18) H Creatinine 0.8 MG/DL (0.55-1.30) Estimat Glomerular Filtration Rate > 60 mL/min (>60) Glucose Level 102 MG/DL (74-106) Calcium Level 8.2 MG/DL (8.5-10.1) L Arterial Blood pH 7.370 (7.350-7.450) Arterial Blood Partial Pressure CO2 42.4 mmHg (35.0-45.0) Arterial Blood Partial Pressure O2 68.0 mmHg (75.0-100.0) L Arterial Blood HCO3 24.0 mmol/L (22.0-26.0) Arterial Blood Oxygen Saturation 92.3 % (95-100) L Arterial Blood Base Excess -1.3 (-2-2) Efrem Test N/a Plan Problems: (1) Hematothorax Assessment & Plan: s/p VATS recovering okay for diet keep chest tube to suction AM CXR will monitor and remove tube when stable okay for chest tube to water seal Errol Estrada July 05, 2019 13:37
--- NOTE | 2019-07-05 14:22 | NUR ---
NURSE NOTES: Bed bath given. Patient had moderate soft brown BM.
--- NOTE | 2019-07-05 14:56 | Internal Med Progress Note ---
Subjective Date of Service: July 05, 2019 Physician Name GraceRoshan Attending Physician Antonio Adrian MD Current Medications Medications (Trade) Dose Ordered Sig/Escobar Route PRN Reason Start Time Stop Time Status Last Admin Dose Admin Acetaminophen (Tylenol) 650 mg Q4H PRN ORAL T>100.5 07/02/19 14:00 07/22/19 13:59 07/04/19 15:25 Acetaminophen/ Hydrocodone Bitart ([place] 10/325) 1 tab Q4H PRN ORAL Severe Pain (Pain Scale 7-10) 07/02/19 14:00 07/09/19 13:59 Acetaminophen/ Hydrocodone Bitart ([place] 5/325) 1 tab Q4H PRN ORAL Moderate Pain (Pain Scale 4-6) 07/02/19 15:00 07/09/19 14:59 07/03/19 20:24 Albuterol/ Ipratropium (Albuterol/ Ipratropium) 3 ml Q4HRT PRN HHN sob 07/04/19 11:00 07/09/19 10:59 07/05/19 04:36 Amiodarone HCl (Cordarone) 200 mg QHS ORAL 07/02/19 21:00 09/30/19 20:59 07/03/19 20:23 Dextrose (Dextrose 50%) 25 ml Q30M PRN IV Hypoglycemia 07/02/19 14:00 09/20/19 18:59 Dextrose (Dextrose 50%) 50 ml Q30M PRN IV Hypoglycemia 07/02/19 14:00 09/20/19 18:59 Dextrose/Sodium Chloride 1,000 ml @ 75 mls/hr [id number] IV 07/04/19 19:15 08/03/19 19:14 07/05/19 09:02 Digoxin (Lanoxin) 0.125 mg DAILY ORAL 07/05/19 09:00 10/03/19 08:59 07/05/19 09:03 Heparin Sodium (Porcine) (Heparin 5000 units/ml) 5,000 units EVERY 12 HOURS SUBQ 07/05/19 21:00 08/19/19 20:59 Hydroxyzine HCl (Atarax) 25 mg Q8H PRN ORAL Itching 07/02/19 14:00 07/30/19 13:59 Lorazepam (Ativan 2mg/ml 1ml) 2 mg Q3H PRN IV For Anxiety 07/03/19 00:45 07/10/19 00:44 07/04/19 07:38 Metoprolol Tartrate (Lopressor) 50 mg EVERY 12 HOURS ORAL 07/04/19 21:00 09/30/19 20:59 07/05/19 09:02 Piperacillin Sod/ Tazobactam Sod 3.375 gm/Sodium Chloride 110 ml @ 27.5 mls/hr EVERY 8 HOURS IVPB 07/04/19 15:30 07/09/19 15:29 07/05/19 13:56 Allergies: Coded Allergies: No Known Allergies (Unverified , 04/24/18) ROS Limited/Unobtainable: Yes Subjective 79 YO F admitted with atypical chest pain. Now severe anemia and acute congestive heart failure. Cover for Int Med-Dr Adrian. S/P video assisted thoracoscopic exploratory surgery 07/02/19. ICU Objective Last Vital Signs Date Time Temp Pulse Resp B/P (MAP) Pulse Ox O2 Delivery O2 Flow Rate FiO2 07/05/19 13:00 84 22 93/49 (64) 100 07/05/19 12:00 Nasal Cannula 4.0 Nasal Cannula 4.0 Nasal Cannula 4.0 07/05/19 12:00 98.2 07/05/19 08:18 55 Laboratory Tests Test 07/05/19 03:33 07/05/19 08:00 White Blood Count 6.3 K/UL (4.8-10.8) Red Blood Count 2.68 M/UL (4.20-5.40) L Hemoglobin 8.2 G/DL (12.0-16.0) L Hematocrit 24.3 % (37.0-47.0) L Mean Corpuscular Volume 90 FL (80-99) Mean Corpuscular Hemoglobin 30.4 PG (27.0-31.0) Mean Corpuscular Hemoglobin Concent 33.6 G/DL (32.0-36.0) Red Cell Distribution Width 18.1 % (11.6-14.8) H Platelet Count 191 K/UL (150-450) Mean Platelet Volume 8.5 FL (6.5-10.1) Neutrophils (%) (Auto) 83.3 % (45.0-75.0) H Lymphocytes (%) (Auto) 9.9 % (20.0-45.0) L Monocytes (%) (Auto) 5.4 % (1.0-10.0) Eosinophils (%) (Auto) 0.0 % (0.0-3.0) Basophils (%) (Auto) 1.4 % (0.0-2.0) Sodium Level 140 MMOL/L (136-145) Potassium Level 4.3 MMOL/L (3.5-5.1) Chloride Level 107 MMOL/L (98-107) Carbon Dioxide Level 25 MMOL/L (21-32) Anion Gap 8 mmol/L (5-15) Blood Urea Nitrogen 20 mg/dL (7-18) H Creatinine 0.8 MG/DL (0.55-1.30) Estimat Glomerular Filtration Rate > 60 mL/min (>60) Glucose Level 102 MG/DL (74-106) Calcium Level 8.2 MG/DL (8.5-10.1) L Arterial Blood pH 7.370 (7.350-7.450) Arterial Blood Partial Pressure CO2 42.4 mmHg (35.0-45.0) Arterial Blood Partial Pressure O2 68.0 mmHg (75.0-100.0) L Arterial Blood HCO3 24.0 mmol/L (22.0-26.0) Arterial Blood Oxygen Saturation 92.3 % (95-100) L Arterial Blood Base Excess -1.3 (-2-2) Efrem Test N/a Intake and Output 07/04/19 07/05/19 19:00 07:00 Intake Total 422.8 ml 1013.5 ml Output Total 100 ml 20 ml Balance 322.8 ml 993.5 ml Intake Oral 50 ml 0 ml IV Total 372.8 ml 1013.5 ml Output Chest Tube Drainage Total 100 ml 20 ml # Voids 2 2 Objective PHYSICAL EXAMINATION: GENERAL: The patient is well-developed and well-nourished female, in no apparent distress. HEENT: Eyes, pupils are equal and responsive to light and accommodation. Extraocular movements are intact. NECK: Supple without lymphadenopathy. CHEST: nasal canula; Lungs with coarse upper airway sounds without wheezes or rales. CARDIOVASCULAR: Regular rate. S1 and S2 normal without murmurs, rubs, or gallops. ABDOMEN: Soft, nontender, and nondistended. Positive bowel sounds. No evidence of hepatosplenomegaly. Currently, no rebound or guarding noted. EXTREMITIES: Negative for clubbing, cyanosis, or edema. RECTAL/GENITAL: Not performed. NEUROLOGIC: Cranial nerves II through XII are grossly intact without focal deficits. Assessment/Plan Assessment/Plan ASSESSMENT: This is an 79-year-old female. 1. Chest pain. 2. Fall injury. 3. Severe anemia. 4. Atrial fibrillation. 5. Polycythemia vera. 6. Hypertension. 7. Obstructive sleep apnea. 8. Coronary artery disease. 9. Hypercholesterolemia. 10. Congestive heart failure; JIC=[id number] 11. Right pleural hemothorax TREATMENT: 1. Chest pain. This may be secondary to fall injury. Initial troponin level was negative. Repeat troponin levels are pending. A Cardiology consultation has been obtained with Dr. Mainor Araujo. 2. Severe anemia. The patient has been typed and crossed for 2 units of packed RBCs. Transfuse when available. Severe anemia may be secondary to gastrointestinal hemorrhage, however, the patient denies melena or bright red blood per rectum. 3. Atrial fibrillation. As above, a Cardiology consultation has been obtained with Dr. Mainor Araujo. 4. Polycythemia vera. The patient is currently anemic. 5. Hypertension. Continue metoprolol as above. 6. Obstructive sleep apnea. 7. Coronary artery disease, status post myocardial infarction. As above, a Cardiology consultation has been obtained with Dr. Mainor Araujo. 8. Hypercholesteremia. 9. Congestive heart failure. 10. Pacemaker in situ. Pacemaker check is pending. 11. right thoracentesis pending 11. Discuss with patient regarding discharge planning, wants to go home, refused SNF. 12. CODE STATUS is full code. 13. Broad spectrum antibiotics with Rocephin IV. 14. Monitor cultures and laboratory. 15. DVT prophylaxis: SCD. 16. OOB to chair, PT Mobility 17. Dc Telemetry 18. S/P video assisted Thoracoscopic exploratory surgery 07/02/19; Thoracic surg=Dr. Malik 19. Right chest tube 20. ICU status Roshan Edwards MD July 05, 2019 14:56
--- NOTE | 2019-07-05 16:11 | NUR ---
NURSE NOTES: Repositioned patient. Patient is still on O2 4L/min via NC. Chest tube connected to water seal.
--- NOTE | 2019-07-05 16:53 | Cardiac Electrophysiology PN ---
Assessment/Plan Assessment/Plan 1. Status post [employer] pacemaker implantation and subsequent generator change by me in 07/2018. The pacemaker was re-interrogated and showed normal pacemaker function. The patient continues to have episodes of atrial fibrillation. 2. Paroxysmal atrial fibrillation with rapid ventricular response. Continue amiodarone 200 mg daily and increase metoprolol to 50 mg b.i.d. Dig 0.5 iv once. Add Dig 0.125 po daily Off anticoagulation in view of severe anemia, needing blood transfusion. 3. Chest pain, felt to be musculoskeletal by Dr. Araujo. The patient was ruled out for myocardial infarction. EF on 06/26/2019 was 55% 4. Urinary tract infection. 5. Hypertension. Continue metoprolol at this time. 6. Polycythemia vera, 7. Recurrent falls. . 8. Severe pulmonary hypertension. PA pressure of 71. 9. Hemothorax. S/P VATS by Dr Malik, extubated Still has chest tube DW RN Subjective Subjective Extubated. Intermittently A or V pacing. In atrial fib 90s. Chest tube draining Objective Last 24 Hour Vital Signs Date Time Temp Pulse Resp B/P (MAP) Pulse Ox O2 Delivery O2 Flow Rate FiO2 07/05/19 13:00 84 22 93/49 (64) 100 07/05/19 12:00 Nasal Cannula 4.0 Nasal Cannula 4.0 Nasal Cannula 4.0 07/05/19 12:00 98.2 85 20 87/54 (65) 100 07/05/19 12:00 4.0 07/05/19 11:00 80 20 95/56 (69) 100 07/05/19 10:00 93 20 98/59 (72) 100 07/05/19 09:03 110 07/05/19 09:02 110 114/72 07/05/19 09:00 109 20 113/65 (81) 95 07/05/19 08:18 95 Venturi Mask 14.0 55 07/05/19 08:00 4.0 07/05/19 08:00 98.4 102 20 139/70 (93) 95 07/05/19 08:00 Nasal Cannula 4.0 Nasal Cannula 4.0 Nasal Cannula 4.0 07/05/19 07:00 106 20 118/78 (91) 99 07/05/19 06:00 103 19 111/68 (82) 99 07/05/19 05:00 98 18 122/70 (87) 99 07/05/19 04:36 98 22 100 Venturi Mask 15.0 55 97 22 97 07/05/19 04:00 98.6 98 22 108/66 (80) 96 07/05/19 04:00 14.0 55 07/05/19 04:00 Venturi Mask 14.0 Venturi Mask 14.0 Venturi Mask 14.0 07/05/19 03:11 98 07/05/19 03:00 97 19 107/60 (76) 98 07/05/19 02:00 97 21 116/59 (78) 99 07/05/19 01:00 90 18 109/47 (67) 100 07/05/19 00:00 Venturi Mask 14.0 Venturi Mask 14.0 Venturi Mask 14.0 07/05/19 00:00 90 07/05/19 00:00 99.1 90 13 101/55 (70) 99 07/05/19 00:00 14.0 55 07/04/19 23:30 86 15 99/50 (66) 98 07/04/19 23:00 87 18 101/52 (68) 99 07/04/19 22:00 87 22 109/63 (78) 99 07/04/19 21:30 89 18 109/50 (69) 99 07/04/19 21:00 89 18 106/61 (76) 99 07/04/19 21:00 83 109/63 07/04/19 20:30 87 21 102/58 (73) 95 07/04/19 20:03 98 Non-Rebreather 15.0 100 07/04/19 20:00 99.4 83 18 106/51 (69) 99 07/04/19 20:00 14.0 55 07/04/19 20:00 Venturi Mask 14.0 Venturi Mask 14.0 Venturi Mask 14.0 07/04/19 19:43 86 20 96/60 (72) 98 07/04/19 19:38 85 07/04/19 19:30 87 20 90/43 (59) 94 07/04/19 19:00 83 19 97/47 (64) 94 07/04/19 18:45 82 20 95 07/04/19 18:30 85 22 91/40 (57) 77 07/04/19 18:21 86 18 93/53 (66) 99 07/04/19 18:12 85 84/41 (55) 07/04/19 18:00 84 24 84/41 (55) 99 07/04/19 17:00 99.3 106 24 102/62 (75) 96 Intake and Output 07/04/19 07/05/19 19:00 07:00 Intake Total 422.8 ml 1013.5 ml Output Total 100 ml 20 ml Balance 322.8 ml 993.5 ml Intake Oral 50 ml 0 ml IV Total 372.8 ml 1013.5 ml Output Chest Tube Drainage Total 100 ml 20 ml # Voids 2 2 Laboratory Tests Test 07/05/19 03:33 07/05/19 08:00 White Blood Count 6.3 K/UL (4.8-10.8) Red Blood Count 2.68 M/UL (4.20-5.40) L Hemoglobin 8.2 G/DL (12.0-16.0) L Hematocrit 24.3 % (37.0-47.0) L Mean Corpuscular Volume 90 FL (80-99) Mean Corpuscular Hemoglobin 30.4 PG (27.0-31.0) Mean Corpuscular Hemoglobin Concent 33.6 G/DL (32.0-36.0) Red Cell Distribution Width 18.1 % (11.6-14.8) H Platelet Count 191 K/UL (150-450) Mean Platelet Volume 8.5 FL (6.5-10.1) Neutrophils (%) (Auto) 83.3 % (45.0-75.0) H Lymphocytes (%) (Auto) 9.9 % (20.0-45.0) L Monocytes (%) (Auto) 5.4 % (1.0-10.0) Eosinophils (%) (Auto) 0.0 % (0.0-3.0) Basophils (%) (Auto) 1.4 % (0.0-2.0) Sodium Level 140 MMOL/L (136-145) Potassium Level 4.3 MMOL/L (3.5-5.1) Chloride Level 107 MMOL/L (98-107) Carbon Dioxide Level 25 MMOL/L (21-32) Anion Gap 8 mmol/L (5-15) Blood Urea Nitrogen 20 mg/dL (7-18) H Creatinine 0.8 MG/DL (0.55-1.30) Estimat Glomerular Filtration Rate > 60 mL/min (>60) Glucose Level 102 MG/DL (74-106) Calcium Level 8.2 MG/DL (8.5-10.1) L Arterial Blood pH 7.370 (7.350-7.450) Arterial Blood Partial Pressure CO2 42.4 mmHg (35.0-45.0) Arterial Blood Partial Pressure O2 68.0 mmHg (75.0-100.0) L Arterial Blood HCO3 24.0 mmol/L (22.0-26.0) Arterial Blood Oxygen Saturation 92.3 % (95-100) L Arterial Blood Base Excess -1.3 (-2-2) Efrem Test N/a Objective HEAD AND NECK: No JVD LUNGS: Coarse rhonchi.Decreased BS on R with Chest tube draining CARDIOVASCULAR: Shows regular S1 and S2 with no gallop. ABDOMEN: Soft. EXTREMITIES: No pitting edema. SKIN: The pacemaker in the left subclavian intact. River Freitas MD July 05, 2019 16:53
--- NOTE | 2019-07-05 18:02 | NUR ---
NURSE NOTES: Chest tube with water seal, serous drainage 100ml noted during day shift. Purewick intact and noted with yellow color urine 110ml. SBP still high 80s. Will continue to plan of care.
--- NOTE | 2019-07-05 19:12 | NUR ---
HAND-OFF: Report given to IRA Westfall. Endorsed plan of care.
--- NOTE | 2019-07-05 19:43 | NUR ---
NURSE NOTES: PATIENT ASLEEP, RESPIRATION REGULAR, ON O2 4LPM VIA NC, O2 SATURATION 100% NOTED, HR 80'S/MIN A-FIB WITH PACED, ABDOMEN SOFT, CHEST TUBE TO RIGHT SIDE, CLEAN AND DRIED DRESSING STATUS, YELLOWISH SEROUS DISCHARGE OUTED WITH WATER SEAL, PPL TO LEFT FA, INTACT AND PATENT, ONGOING IV FLUID D5W NS AT 75ML/HR VIA PPL, KEPT HOB 30 DEGREES, MADE LOWER BED POSITION, ON BED ALARM AND LOCKED, CALL LIGHT WITHIN REACH, IS AT BEDSIDE, WILL CONTINUE TO MONITOR.
[2019-07-05] MEDS ORDERED: Heparin 5000 units/ml inj SUBQ SCH (21:00)
[2019-07-05] MEDS: Amiodarone 200mg tab ORAL SCH (21:04)
--- NOTE | 2019-07-05 22:00 | NUR ---
NURSE NOTES: NO PAIN OR SOB NOTED AT THIS TIME.
--- NOTE | 2019-07-05 23:00 | NUR ---
TRANSFER TO FLOOR: Patient transferred to SDU room 239-2 via hospital bed. Report given to PATSY DOBBINS RN. Belongings and medications given to receiving nurse. No acute distress noted while transfer.Family and or S/O informed of transfer.
--- NOTE | 2019-07-05 23:15 | NUR ---
NURSE NOTES: Report received from [facility]. Patient awake, alert x 2-3, afebrile and has no SOB noted. On NC with 4lpm saturating at 100%. With Right hand 24g IV line intact, asymptomatic and patent. With right chest tube connected to water seal intact,asymptomatic, patent and draining well with clear to reddish output. With Purewick to suction draining well and intact. VS taken and pt is stable. SBP is below 100 most of the time and Dr Beatty is aware per endorsement. PT has no dizziness, syncope, noted. Pt was able to say thank you after needs were attended like providing blankets. HOB elevated. bed wheels are locked and side rails are up. Continue to monitor patient with plan of care.
[2019-07-05] MEDS ORDERED: LORazepam Inj 2mg/ml 1ml IV PRN (23:23)
[2019-07-05] MEDS ORDERED: HydrOXYzine tab 25mg tab ORAL PRN (23:23)
[2019-07-06] VITALS: BP 98/64
[2019-07-06] MEDS: D5NS 1,000 ML IV SCH ×2 (00:27→15:20)
[2019-07-06] MEDS ORDERED: HYDROcodone/Acetamin 10/325 tab ORAL PRN (02:00)
[2019-07-06] MEDS ORDERED: Albuterol/Ipratropium 3ml neb HHN PRN (03:00)
[2019-07-06] MEDS ORDERED: HYDROcodone/Acetamin 5/325 tab ORAL PRN (03:00)
[2019-07-06 04:00] VITALS: BP 94/53
[2019-07-06] MEDS: Piperacillin/Tazobactam 3.375 GM in NS 110 ML IVPB SCH ×3 (05:15→23:01)
[2019-07-06 05:49] LABS: HEMATOCRIT 21.4 % (37.0-47.0); HEMOGLOBIN 7.1 G/DL (12.0-16.0); MEAN CORPUSCULAR VOLUME 91 FL (80-99); PLATELET COUNT 169 K/UL (150-450); RED BLOOD COUNT 2.36 M/UL (4.20-5.40); WHITE BLOOD COUNT 5.5 K/UL (4.8-10.8)
[2019-07-06 06:05] LABS: ANION GAP 6 mmol/L (5-15); BLOOD UREA NITROGEN 18 mg/dL (7-18); CALCIUM 8.1 MG/DL (8.5-10.1); CARBON DIOXIDE 27 MMOL/L (21-32); CHLORIDE 113 MMOL/L (98-107); CREATININE 0.8 MG/DL (0.55-1.30); POTASSIUM 3.3 MMOL/L (3.5-5.1); SODIUM 146 MMOL/L (136-145)
--- NOTE | 2019-07-06 06:30 | NUR ---
NURSE NOTES: Relayed message of Hgb, Hct and potassium results to Dr Adrian. Awaiting for response. will endorse to next shift if no response taken
--- NOTE | 2019-07-06 07:30 | NUR ---
HAND-OFF: Report given to Arik MURPHY Pt asleep in bed. Endorsed also to ff up with Dr lentz regarding orders for HCt, Hgb and Potassium results. Addendum: 07/06/19 at 0742 by PATSY Bermeo RN Correction: Report given to Gennaro MURPHY Pt asleep in bed. Endorsed also to ff up with Dr lentz regarding orders for HCt, Hgb and Potassium results
--- NOTE | 2019-07-06 08:30 | NUR ---
NURSE NOTES: Message left for Dr. Adrian on answering service at regarding patient's K+ of 3.3, Hgb of 7.1 trending down, and Hct of 21.4
--- NOTE | 2019-07-06 08:45 | NUR ---
NURSE NOTES: Cait Melchor BRICK BAKER at bedside. New verbal orders received for 1 unit PRBC transfusion, 20 mEq K+ PO once, and incentive spirometry q 1 hour.
[2019-07-06] MEDS: Metoprolol Tartrate 50mg tab ORAL SCH ×2 (09:00→21:01)
--- NOTE | 2019-07-06 09:00 | NUR ---
NURSE NOTES: Bella held d/t BP of 104/63. Will continue to monitor.
[2019-07-06] MEDS: Heparin 5000 units/ml inj SUBQ SCH ×4 (09:29→21:12)
[2019-07-06] MEDS: Digoxin 0.125mg tab ORAL SCH (09:30)
--- NOTE | 2019-07-06 09:30 | Diagnostic Imaging Report ---
EXAM: XR Chest, 1 View CLINICAL HISTORY: SOB TECHNIQUE: Frontal view of the chest. COMPARISON: Chest x-ray 07/05/19 FINDINGS: Lungs: Minimally improved right interstitial thickening and perihilar and lower lobe opacities. Slightly improved left perihilar interstitial thickening and lower lung opacity. Pleural space: Slightly improved moderate left pleural effusion. No pneumothorax. Heart: Cardiomegaly. Mediastinum: Unremarkable. Bones/joints: Degenerative changes of the shoulders. Soft tissues: Improving right chest wall emphysema. Tubes, lines and devices: Cardiac pacemaker. Stable right chest tube. IMPRESSION: 1. Slightly improved moderate left pleural effusion. Slightly improved left perihilar interstitial thickening and lower lung opacity. 2. Minimally improved right interstitial thickening and perihilar and lower lobe opacities. 3. Improving right chest wall emphysema. 4. Stable right chest tube.
--- NOTE | 2019-07-06 09:50 | Pulmonology Progress Note ---
Subjective ROS Limited/Unobtainable: Yes Interval Events: no new complains Allergies: Coded Allergies: No Known Allergies (Unverified , 04/24/18) Subjective no fevers since 07/03, no leukocytosis weaned to O2 4 L via NC CXR 07/[address] still in -118 ml 07/05 Hgb down to 7.1 K- 3.3 Objective Last 24 Hour Vital Signs Date Time Temp Pulse Resp B/P (MAP) Pulse Ox O2 Delivery O2 Flow Rate FiO2 07/06/19 09:30 104 07/06/19 09:00 104/63 07/06/19 04:00 Nasal Cannula 4.0 Nasal Cannula 4.0 Nasal Cannula 4.0 07/06/19 04:00 98.1 90 18 94/53 (67) 98 07/06/19 04:00 4.0 07/06/19 03:34 88 07/06/19 00:00 Nasal Cannula 4.0 Nasal Cannula 4.0 Nasal Cannula 4.0 07/06/19 00:00 98.1 103 18 98/64 (75) 98 07/05/19 23:44 98 07/05/19 23:00 98 18 96/54 (68) 98 07/05/19 22:00 106 29 100/47 (64) 92 07/05/19 21:47 113 18 100 Nasal Cannula 4.0 36 96 16 97 07/05/19 21:00 91 86/54 07/05/19 20:00 Nasal Cannula 4.0 Nasal Cannula 4.0 Nasal Cannula 4.0 07/05/19 20:00 4.0 07/05/19 20:00 87 07/05/19 20:00 98.8 91 18 86/54 (65) 100 07/05/19 19:04 94 Venturi Mask 14.0 55 07/05/19 19:00 87 18 86/55 (65) 100 07/05/19 18:00 102 18 86/56 (66) 98 07/05/19 17:00 96 18 87/52 (64) 99 07/05/19 16:00 Nasal Cannula 4.0 Nasal Cannula 4.0 Nasal Cannula 4.0 07/05/19 16:00 98.0 88 17 85/55 (65) 100 07/05/19 16:00 81 07/05/19 16:00 4.0 07/05/19 15:00 89 17 91/46 (61) 98 07/05/19 14:00 88 20 93/55 (68) 100 07/05/19 13:00 84 22 93/49 (64) 100 07/05/19 12:00 Nasal Cannula 4.0 Nasal Cannula 4.0 Nasal Cannula 4.0 07/05/19 12:00 98.2 85 20 87/54 (65) 100 07/05/19 12:00 93 07/05/19 12:00 4.0 07/05/19 11:00 80 20 95/56 (69) 100 07/05/19 10:00 93 20 98/59 (72) 100 Intake and Output 07/05/19 07/06/19 19:00 07:00 Intake Total 1063.5 ml 970.375 ml Output Total 210 ml 513 ml Balance 853.5 ml 457.375 ml Intake Oral 0 ml 210 ml IV Total 1063.5 ml 760.375 ml Output Urine Total 110 ml 495 ml Chest Tube Drainage Total 100 ml 18 ml # Voids 1 # Bowel Movements 2 Objective Condition: critical HEENT: atraumatic, O2 via NC Lungs: rhonchi - bilaterally ; few cracking sounds on the right, CT R sided to Hemovac, minimal output, surgical dressing over the site C/D/I Heart: HR/BP stable, tachycardic, ST on tele ( low atchy) Abdomen: soft, non-tender, active bowel sounds, feeding tube Extremities: No edema General Appearance: other - elderly female in NAD Microbiology Date/Time Source Procedure Growth Status 07/04/19 16:25 Blood Blood Culture - Preliminary NO GROWTH AFTER 24 HOURS Resulted Laboratory Tests 07/06/19 04:37: White Blood Count 5.5, Red Blood Count 2.36L, Hemoglobin 7.1L, Hematocrit 21.4L , Mean Corpuscular Volume 91, Mean Corpuscular Hemoglobin 29.9, Mean Corpuscular Hemoglobin Concent 32.9, Red Cell Distribution Width 20.0H, Platelet Count 169, Mean Platelet Volume 8.6, Neutrophils (%) (Auto) , Lymphocytes (%) (Auto) , Monocytes (%) (Auto) , Eosinophils (%) (Auto) , Basophils (%) (Auto) , Differential Total Cells Counted 100, Neutrophils % ( Manual) 89H, Lymphocytes % (Manual) 8L, Monocytes % (Manual) 3, Eosinophils % ( Manual) 0, Basophils % (Manual) 0, Band Neutrophils 0, Platelet Estimate Adequate, Platelet Morphology , Giant Platelets Occasional, Polychromasia 1+, Hypochromasia 1+, Anisocytosis 2+, Ovalocytes 1+, Sodium Level 146H, Potassium Level 3.3L, Chloride Level 113H, Carbon Dioxide Level 27, Anion Gap 6, Blood Urea Nitrogen 18, Creatinine 0.8, Estimat Glomerular Filtration Rate > 60, Glucose Level 118H, Calcium Level 8.1L, Digoxin Level 1.1 Current Medications Medications (Trade) Dose Ordered Sig/Escobar Route PRN Reason Start Time Stop Time Status Last Admin Dose Admin Acetaminophen (Tylenol) 650 mg Q4H PRN ORAL T>100.5 07/05/19 23:20 08/04/19 23:19 Acetaminophen/ Hydrocodone Bitart ([place] 10/325) 1 tab Q4H PRN ORAL Severe Pain (Pain Scale 7-10) 07/06/19 02:00 07/09/19 13:59 Acetaminophen/ Hydrocodone Bitart ([place] 5/325) 1 tab Q4H PRN ORAL Moderate Pain (Pain Scale 4-6) 07/06/19 03:00 07/09/19 14:59 Albuterol/ Ipratropium (Albuterol/ Ipratropium) 3 ml Q4HRT PRN HHN sob 07/06/19 03:00 07/09/19 10:59 Amiodarone HCl (Cordarone) 200 mg QHS ORAL 07/06/19 21:00 09/30/19 20:59 Dextrose (Dextrose 50%) 25 ml Q30M PRN IV Hypoglycemia 07/05/19 23:30 09/20/19 18:59 Dextrose (Dextrose 50%) 50 ml Q30M PRN IV Hypoglycemia 07/05/19 23:30 09/20/19 18:59 Dextrose/Sodium Chloride 1,000 ml @ 75 mls/hr [id number] IV 07/06/19 00:00 08/05/19 00:00 07/06/19 00:27 Digoxin (Lanoxin) 0.125 mg DAILY ORAL 07/06/19 09:00 10/03/19 08:59 07/06/19 09:30 Heparin Sodium (Porcine) (Heparin 5000 units/ml) 5,000 units EVERY 12 HOURS SUBQ 07/06/19 09:00 7 20:59 07/06/19 09:29 Hydroxyzine HCl (Atarax) 25 mg Q8H PRN ORAL Itching 07/05/19 23:23 08/04/19 23:22 Lorazepam (Ativan 2mg/ml 1ml) 2 mg Q3H PRN IV For Anxiety 07/05/19 23:23 07/12/19 23:22 Metoprolol Tartrate (Lopressor) 50 mg EVERY 12 HOURS ORAL 07/06/19 09:00 09/30/19 20:59 Piperacillin Sod/ Tazobactam Sod 3.375 gm/Sodium Chloride 110 ml @ 27.5 mls/hr EVERY 8 HOURS IVPB 07/06/19 06:00 07/09/19 15:29 07/06/19 05:15 Potassium Chloride (K-Dur) 20 meq ONCE ORAL 07/06/19 09:00 07/06/19 10:00 07/06/19 09:30 Assessment/Plan Assessment/Plan ASSESSMENT s/p mechanical fall with acute multiple rib fractures Right pleural effusion , moderate to large with probable associated hemothorax Right hemothorax s/p flexible bronchoscopy, right video-assisted thoracoscopic surgery, intrapleural pneumolysis, evacuation of right intrathoracic blood, intercostal nerve block 07/01 Acute resp failure ( remained intubated after surgery), s/p extubation 07/02, now on O2 via NC Right sided chest tube Probably pneumonia Atelectasis, collapsed L lung COPD Suspected COVID 19 - not detected History of KELVIN PAF CHF with diastolic dysfunction SSS, status post pacemaker/interrogated, normal fx Profound anemia, s/p 3 u PRBC Hx of polycythemia vera Severe pulmonary HTN Hypokalemia PLAN OF CARE SRI O2 titrate to keep sat above 90%, pulm toilet CXR 07/05 1. Slightly improved moderate left pleural effusion. Slightly improved left perihilar interstitial thickening and lower lung opacity. 2. Minimally improved right interstitial thickening and perihilar and lower lobe opacities. 3. Improving right chest wall emphysema. 4. Stable right chest tube. weaned down to O2 via NC Venous Duplex BLE - not done, place SCD if negative Chest tube with small output, discussed with surgeon, will probably remove this am will discuss with surgeon if can start a/c with LMWH fup with CXR in am continue IS - CT head - no acute IC pathology CT C/A/P noted ; 06/22 US chest noted, m to l R pleural effusion 06/25 US chest with Small right pleural effusion, decreased compared to the prior exam. No significant pocket for thoracentesis. SARS COV-2 by PCR 06/25 not detected abx as per ID, on Zosyn intra-oper cx NGTD, AFB smear NGT, BCX 07/03 NGTD off anticoagulation 2 to anemia; continue amiodarone and B, s/p Dig x 1 per cardio, HR better, mild tachy Hgb down to 7.1 - give 1 u PRBC replace K, check K and Mg in am cardio follows PRIOR: seen and evaluated by CT surgeon thoracentesis not performed given small pocket 06/25 per US chest may need VATS for washout. ECHO with pEF and RVSP of 71 c/w severe pulm HTN CXR 06/26 showed Pulmonary vascular congestion, similar to mildly increased from the prior exam. No significant change in the small right pleural effusion or subtle infiltrate in the right lung base. s/p 3 u PRBC, HH remains stable UCX + mixed urogenital contaminant on empiric Ceftriaxone per ID recs, completing today 07/03 pain management supportive care fall precaution case discussed and evaluated by supervising physician Cait Melchor NP July 06, 2019 09:50
--- NOTE | 2019-07-06 11:10 | Surgery Progress Note ---
Surgery Progress Note Subjective Symptoms: improved, tolerating diet, passing flatus Additional Comments chest tube with minimal output much improved plan tube removal tomorrow Objective Last 24 Hour Vital Signs Date Time Temp Pulse Resp B/P (MAP) Pulse Ox O2 Delivery O2 Flow Rate FiO2 07/06/19 09:51 100 Nasal Cannula 4.0 36 07/06/19 09:30 104 07/06/19 09:00 104/63 07/06/19 04:00 Nasal Cannula 4.0 Nasal Cannula 4.0 Nasal Cannula 4.0 07/06/19 04:00 98.1 90 18 94/53 (67) 98 07/06/19 04:00 4.0 07/06/19 03:34 88 07/06/19 00:00 Nasal Cannula 4.0 Nasal Cannula 4.0 Nasal Cannula 4.0 07/06/19 00:00 98.1 103 18 98/64 (75) 98 07/05/19 23:44 98 07/05/19 23:00 98 18 96/54 (68) 98 07/05/19 22:00 106 29 100/47 (64) 92 07/05/19 21:47 113 18 100 Nasal Cannula 4.0 36 96 16 97 07/05/19 21:00 91 86/54 07/05/19 20:00 Nasal Cannula 4.0 Nasal Cannula 4.0 Nasal Cannula 4.0 07/05/19 20:00 4.0 07/05/19 20:00 87 07/05/19 20:00 98.8 91 18 86/54 (65) 100 07/05/19 19:04 94 Venturi Mask 14.0 55 07/05/19 19:00 87 18 86/55 (65) 100 07/05/19 18:00 102 18 86/56 (66) 98 07/05/19 17:00 96 18 87/52 (64) 99 07/05/19 16:00 Nasal Cannula 4.0 Nasal Cannula 4.0 Nasal Cannula 4.0 07/05/19 16:00 98.0 88 17 85/55 (65) 100 07/05/19 16:00 81 07/05/19 16:00 4.0 07/05/19 15:00 89 17 91/46 (61) 98 07/05/19 14:00 88 20 93/55 (68) 100 07/05/19 13:00 84 22 93/49 (64) 100 07/05/19 12:00 Nasal Cannula 4.0 Nasal Cannula 4.0 Nasal Cannula 4.0 07/05/19 12:00 98.2 85 20 87/54 (65) 100 07/05/19 12:00 93 07/05/19 12:00 4.0 I&O Intake and Output 07/05/19 07/06/19 18:59 06:59 Intake Total 1091.0 ml 983.5 ml Output Total 210 ml 513 ml Balance 881.0 ml 470.5 ml Intake Oral 0 ml 210 ml IV Total 1091.0 ml 773.5 ml Output Urine Total 110 ml 495 ml Chest Tube Drainage Total 100 ml 18 ml # Voids 1 # Bowel Movements 2 Dressing: other Wound: other Drains: other Cardiovascular: RSR Respiratory: decreased breath sounds Abdomen: soft, non-tender, present bowel sounds Extremities: no tenderness, no cyanosis Laboratory Tests Test 07/06/19 04:37 White Blood Count 5.5 K/UL (4.8-10.8) Red Blood Count 2.36 M/UL (4.20-5.40) L Hemoglobin 7.1 G/DL (12.0-16.0) L Hematocrit 21.4 % (37.0-47.0) L Mean Corpuscular Volume 91 FL (80-99) Mean Corpuscular Hemoglobin 29.9 PG (27.0-31.0) Mean Corpuscular Hemoglobin Concent 32.9 G/DL (32.0-36.0) Red Cell Distribution Width 20.0 % (11.6-14.8) H Platelet Count 169 K/UL (150-450) Mean Platelet Volume 8.6 FL (6.5-10.1) Neutrophils (%) (Auto) % (45.0-75.0) Lymphocytes (%) (Auto) % (20.0-45.0) Monocytes (%) (Auto) % (1.0-10.0) Eosinophils (%) (Auto) % (0.0-3.0) Basophils (%) (Auto) % (0.0-2.0) Differential Total Cells Counted 100 Neutrophils % (Manual) 89 % (45-75) H Lymphocytes % (Manual) 8 % (20-45) L Monocytes % (Manual) 3 % (1-10) Eosinophils % (Manual) 0 % (0-3) Basophils % (Manual) 0 % (0-2) Band Neutrophils 0 % (0-8) Platelet Estimate Adequate Platelet Morphology Giant Platelets Occasional Polychromasia 1+ Hypochromasia 1+ Anisocytosis 2+ Ovalocytes 1+ Sodium Level 146 MMOL/L (136-145) H Potassium Level 3.3 MMOL/L (3.5-5.1) L Chloride Level 113 MMOL/L (98-107) H Carbon Dioxide Level 27 MMOL/L (21-32) Anion Gap 6 mmol/L (5-15) Blood Urea Nitrogen 18 mg/dL (7-18) Creatinine 0.8 MG/DL (0.55-1.30) Estimat Glomerular Filtration Rate > 60 mL/min (>60) Glucose Level 118 MG/DL (74-106) H Calcium Level 8.1 MG/DL (8.5-10.1) L Digoxin Level 1.1 NG/ML (0.9-2.0) Plan Problems: (1) Hematothorax Assessment & Plan: s/p VATS recovering okay for diet keep chest tube to suction AM CXR will monitor and remove tube when stable okay for chest tube to water seal cxr noted tube removal in AM Errol Estrada July 06, 2019 11:10
--- NOTE | 2019-07-06 13:33 | Cardiac Electrophysiology PN ---
Assessment/Plan Assessment/Plan 1. Status post [employer] pacemaker implantation and subsequent generator change by me in 07/2018. The pacemaker was re-interrogated and showed normal pacemaker function. The patient continues to have episodes of atrial fibrillation. 2. Paroxysmal atrial fibrillation with rapid ventricular response. Continue amiodarone 200 mg daily ,metoprolol 50 mg b.i.d. and Dig 0.125 po daily Off anticoagulation in view of severe anemia, needing blood transfusion. 3. Chest pain, felt to be musculoskeletal by Dr. Araujo. The patient was ruled out for myocardial infarction. EF on 06/26/2019 was 55% 4. Urinary tract infection. 5. Hypertension. Continue metoprolol at this time. 6. Polycythemia vera, 7. Recurrent falls. . 8. Severe pulmonary hypertension. PA pressure of 71. 9. Hemothorax. S/P VATS by Dr Malik, extubated Chest tube to be removed tomorrow DW RN and Dr Malik at bedside Subjective Subjective Intermittently A or V pacing. Chest tube draining. Alert and eating. Dr Malik at bedside Objective Last 24 Hour Vital Signs Date Time Temp Pulse Resp B/P (MAP) Pulse Ox O2 Delivery O2 Flow Rate FiO2 07/06/19 09:51 100 Nasal Cannula 4.0 36 07/06/19 09:30 104 07/06/19 09:00 104/63 07/06/19 04:00 Nasal Cannula 4.0 Nasal Cannula 4.0 Nasal Cannula 4.0 07/06/19 04:00 98.1 90 18 94/53 (67) 98 07/06/19 04:00 4.0 07/06/19 03:34 88 07/06/19 00:00 Nasal Cannula 4.0 Nasal Cannula 4.0 Nasal Cannula 4.0 07/06/19 00:00 98.1 103 18 98/64 (75) 98 07/05/19 23:44 98 07/05/19 23:00 98 18 96/54 (68) 98 07/05/19 22:00 106 29 100/47 (64) 92 07/05/19 21:47 113 18 100 Nasal Cannula 4.0 36 96 16 97 07/05/19 21:00 91 86/54 07/05/19 20:00 Nasal Cannula 4.0 Nasal Cannula 4.0 Nasal Cannula 4.0 07/05/19 20:00 4.0 07/05/19 20:00 87 07/05/19 20:00 98.8 91 18 86/54 (65) 100 07/05/19 19:04 94 Venturi Mask 14.0 55 07/05/19 19:00 87 18 86/55 (65) 100 07/05/19 18:00 102 18 86/56 (66) 98 07/05/19 17:00 96 18 87/52 (64) 99 07/05/19 16:00 Nasal Cannula 4.0 Nasal Cannula 4.0 Nasal Cannula 4.0 07/05/19 16:00 98.0 88 17 85/55 (65) 100 07/05/19 16:00 81 07/05/19 16:00 4.0 07/05/19 15:00 89 17 91/46 (61) 98 07/05/19 14:00 88 20 93/55 (68) 100 Intake and Output 07/05/19 07/06/19 19:00 07:00 Intake Total 1063.5 ml 970.375 ml Output Total 210 ml 513 ml Balance 853.5 ml 457.375 ml Intake Oral 0 ml 210 ml IV Total 1063.5 ml 760.375 ml Output Urine Total 110 ml 495 ml Chest Tube Drainage Total 100 ml 18 ml # Voids 1 # Bowel Movements 2 Laboratory Tests Test 07/06/19 04:37 White Blood Count 5.5 K/UL (4.8-10.8) Red Blood Count 2.36 M/UL (4.20-5.40) L Hemoglobin 7.1 G/DL (12.0-16.0) L Hematocrit 21.4 % (37.0-47.0) L Mean Corpuscular Volume 91 FL (80-99) Mean Corpuscular Hemoglobin 29.9 PG (27.0-31.0) Mean Corpuscular Hemoglobin Concent 32.9 G/DL (32.0-36.0) Red Cell Distribution Width 20.0 % (11.6-14.8) H Platelet Count 169 K/UL (150-450) Mean Platelet Volume 8.6 FL (6.5-10.1) Neutrophils (%) (Auto) % (45.0-75.0) Lymphocytes (%) (Auto) % (20.0-45.0) Monocytes (%) (Auto) % (1.0-10.0) Eosinophils (%) (Auto) % (0.0-3.0) Basophils (%) (Auto) % (0.0-2.0) Differential Total Cells Counted 100 Neutrophils % (Manual) 89 % (45-75) H Lymphocytes % (Manual) 8 % (20-45) L Monocytes % (Manual) 3 % (1-10) Eosinophils % (Manual) 0 % (0-3) Basophils % (Manual) 0 % (0-2) Band Neutrophils 0 % (0-8) Platelet Estimate Adequate Platelet Morphology Giant Platelets Occasional Polychromasia 1+ Hypochromasia 1+ Anisocytosis 2+ Ovalocytes 1+ Sodium Level 146 MMOL/L (136-145) H Potassium Level 3.3 MMOL/L (3.5-5.1) L Chloride Level 113 MMOL/L (98-107) H Carbon Dioxide Level 27 MMOL/L (21-32) Anion Gap 6 mmol/L (5-15) Blood Urea Nitrogen 18 mg/dL (7-18) Creatinine 0.8 MG/DL (0.55-1.30) Estimat Glomerular Filtration Rate > 60 mL/min (>60) Glucose Level 118 MG/DL (74-106) H Calcium Level 8.1 MG/DL (8.5-10.1) L Digoxin Level 1.1 NG/ML (0.9-2.0) Microbiology Date/Time Source Procedure Growth Status 07/04/19 16:25 Blood Blood Culture - Preliminary NO GROWTH AFTER 24 HOURS Resulted Objective HEAD AND NECK: No JVD LUNGS: Coarse rhonchi. Decreased BS on R with Chest tube draining CARDIOVASCULAR: Shows regular S1 and S2 with no gallop. ABDOMEN: Soft. EXTREMITIES: No pitting edema. SKIN: The pacemaker in the left subclavian intact. River Freitas MD July 06, 2019 13:33
--- NOTE | 2019-07-06 14:03 | Internal Med Progress Note ---
Subjective Date of Service: July 06, 2019 Physician Name GraceRoshan Attending Physician Antonio Adrian MD Current Medications Medications (Trade) Dose Ordered Sig/Escobar Route PRN Reason Start Time Stop Time Status Last Admin Dose Admin Acetaminophen (Tylenol) 650 mg Q4H PRN ORAL T>100.5 07/05/19 23:20 08/04/19 23:19 Acetaminophen/ Hydrocodone Bitart ([place] 10/325) 1 tab Q4H PRN ORAL Severe Pain (Pain Scale 7-10) 07/06/19 02:00 07/09/19 13:59 Acetaminophen/ Hydrocodone Bitart ([place] 5/325) 1 tab Q4H PRN ORAL Moderate Pain (Pain Scale 4-6) 07/06/19 03:00 07/09/19 14:59 Albuterol/ Ipratropium (Albuterol/ Ipratropium) 3 ml Q4HRT PRN HHN sob 07/06/19 03:00 07/09/19 10:59 Amiodarone HCl (Cordarone) 200 mg QHS ORAL 07/06/19 21:00 09/30/19 20:59 Dextrose (Dextrose 50%) 25 ml Q30M PRN IV Hypoglycemia 07/05/19 23:30 09/20/19 18:59 Dextrose (Dextrose 50%) 50 ml Q30M PRN IV Hypoglycemia 07/05/19 23:30 09/20/19 18:59 Dextrose/Sodium Chloride 1,000 ml @ 75 mls/hr [id number] IV 07/06/19 00:00 08/05/19 00:00 07/06/19 00:27 Digoxin (Lanoxin) 0.125 mg DAILY ORAL 07/06/19 09:00 10/03/19 08:59 07/06/19 09:30 Heparin Sodium (Porcine) (Heparin 5000 units/ml) 5,000 units EVERY 12 HOURS SUBQ 07/06/19 09:00 08/19/19 20:59 07/06/19 09:29 Hydroxyzine HCl (Atarax) 25 mg Q8H PRN ORAL Itching 07/05/19 23:23 08/04/19 23:22 Lorazepam (Ativan 2mg/ml 1ml) 2 mg Q3H PRN IV For Anxiety 07/05/19 23:23 07/12/19 23:22 Metoprolol Tartrate (Lopressor) 50 mg EVERY 12 HOURS ORAL 07/06/19 09:00 09/30/19 20:59 Piperacillin Sod/ Tazobactam Sod 3.375 gm/Sodium Chloride 110 ml @ 27.5 mls/hr EVERY 8 HOURS IVPB 07/06/19 06:00 07/09/19 15:29 07/06/19 05:15 Allergies: Coded Allergies: No Known Allergies (Unverified , 04/24/18) ROS Limited/Unobtainable: No Constitutional: Reports: no symptoms HEENT: Reports: no symptoms Cardiovascular: Reports: no symptoms Respiratory: Reports: no symptoms Gastrointestinal/Abdominal: Reports: no symptoms Genitourinary: Reports: no symptoms Neurologic/Psychiatric: Reports: no symptoms Subjective 79 YO F admitted with atypical chest pain. Now severe anemia and acute congestive heart failure. Cover for Int Germán-Dr Adrian. S/P video assisted thoracoscopic exploratory surgery 07/02/19. Step down unit Objective Last Vital Signs Date Time Temp Pulse Resp B/P (MAP) Pulse Ox O2 Delivery O2 Flow Rate FiO2 07/06/19 09:51 100 Nasal Cannula 4.0 36 07/06/19 09:30 104 07/06/19 09:00 104/63 07/06/19 04:00 98.1 18 Laboratory Tests Test 07/06/19 04:37 White Blood Count 5.5 K/UL (4.8-10.8) Red Blood Count 2.36 M/UL (4.20-5.40) L Hemoglobin 7.1 G/DL (12.0-16.0) L Hematocrit 21.4 % (37.0-47.0) L Mean Corpuscular Volume 91 FL (80-99) Mean Corpuscular Hemoglobin 29.9 PG (27.0-31.0) Mean Corpuscular Hemoglobin Concent 32.9 G/DL (32.0-36.0) Red Cell Distribution Width 20.0 % (11.6-14.8) H Platelet Count 169 K/UL (150-450) Mean Platelet Volume 8.6 FL (6.5-10.1) Neutrophils (%) (Auto) % (45.0-75.0) Lymphocytes (%) (Auto) % (20.0-45.0) Monocytes (%) (Auto) % (1.0-10.0) Eosinophils (%) (Auto) % (0.0-3.0) Basophils (%) (Auto) % (0.0-2.0) Differential Total Cells Counted 100 Neutrophils % (Manual) 89 % (45-75) H Lymphocytes % (Manual) 8 % (20-45) L Monocytes % (Manual) 3 % (1-10) Eosinophils % (Manual) 0 % (0-3) Basophils % (Manual) 0 % (0-2) Band Neutrophils 0 % (0-8) Platelet Estimate Adequate Platelet Morphology Giant Platelets Occasional Polychromasia 1+ Hypochromasia 1+ Anisocytosis 2+ Ovalocytes 1+ Sodium Level 146 MMOL/L (136-145) H Potassium Level 3.3 MMOL/L (3.5-5.1) L Chloride Level 113 MMOL/L (98-107) H Carbon Dioxide Level 27 MMOL/L (21-32) Anion Gap 6 mmol/L (5-15) Blood Urea Nitrogen 18 mg/dL (7-18) Creatinine 0.8 MG/DL (0.55-1.30) Estimat Glomerular Filtration Rate > 60 mL/min (>60) Glucose Level 118 MG/DL (74-106) H Calcium Level 8.1 MG/DL (8.5-10.1) L Digoxin Level 1.1 NG/ML (0.9-2.0) Microbiology Date/Time Source Procedure Growth Status 07/04/19 16:25 Blood Blood Culture - Preliminary NO GROWTH AFTER 24 HOURS Resulted Intake and Output 07/05/19 07/06/19 19:00 07:00 Intake Total 1063.5 ml 970.375 ml Output Total 210 ml 513 ml Balance 853.5 ml 457.375 ml Intake Oral 0 ml 210 ml IV Total 1063.5 ml 760.375 ml Output Urine Total 110 ml 495 ml Chest Tube Drainage Total 100 ml 18 ml # Voids 1 # Bowel Movements 2 Objective PHYSICAL EXAMINATION: GENERAL: The patient is well-developed and well-nourished female, in no apparent distress. HEENT: Eyes, pupils are equal and responsive to light and accommodation. Extraocular movements are intact. NECK: Supple without lymphadenopathy. CHEST: nasal canula; Lungs with coarse upper airway sounds without wheezes or rales. CARDIOVASCULAR: Regular rate. S1 and S2 normal without murmurs, rubs, or gallops. ABDOMEN: Soft, nontender, and nondistended. Positive bowel sounds. No evidence of hepatosplenomegaly. Currently, no rebound or guarding noted. EXTREMITIES: Negative for clubbing, cyanosis, or edema. RECTAL/GENITAL: Not performed. NEUROLOGIC: Cranial nerves II through XII are grossly intact without focal deficits. Assessment/Plan Assessment/Plan ASSESSMENT: This is an 79-year-old female. 1. Chest pain. 2. Fall injury. 3. Severe anemia. 4. Atrial fibrillation. 5. Polycythemia vera. 6. Hypertension. 7. Obstructive sleep apnea. 8. Coronary artery disease. 9. Hypercholesterolemia. 10. Congestive heart failure; XDI=[id number] 11. Right pleural hemothorax 12. Severe anemia-blood loss; S/P surgery TREATMENT: 1. Chest pain. This may be secondary to fall injury. Initial troponin level was negative. Repeat troponin levels are pending. A Cardiology consultation has been obtained with Dr. Mainor Araujo. 2. Severe anemia. The patient has been typed and crossed for 2 units of packed RBCs. Transfuse when available. Severe anemia may be secondary to gastrointestinal hemorrhage, however, the patient denies melena or bright red blood per rectum. 3. Atrial fibrillation. As above, a Cardiology consultation has been obtained with Dr. Mainor Araujo. 4. Polycythemia vera. The patient is currently anemic. 5. Hypertension. Continue metoprolol as above. 6. Obstructive sleep apnea. 7. Coronary artery disease, status post myocardial infarction. As above, a Cardiology consultation has been obtained with Dr. Mainor Araujo. 8. Hypercholesteremia. 9. Congestive heart failure. 10. Pacemaker in situ. Pacemaker check is pending. 11. right thoracentesis pending 11. Discuss with patient regarding discharge planning, wants to go home, refused SNF. 12. CODE STATUS is full code. 13. Broad spectrum antibiotics with Rocephin IV. 14. Monitor cultures and laboratory. 15. DVT prophylaxis: SCD. 16. OOB to chair, PT Mobility 17. Dc Telemetry 18. S/P video assisted Thoracoscopic exploratory surgery 07/02/19; Thoracic surg=Dr. Malik 19. Right chest tube 20. Transfuse 2 units PRBC 07/06/19 Roshan Edwards MD July 06, 2019 14:03
--- NOTE | 2019-07-06 16:39 | Infectious Diseases Prog Note ---
Assessment/Plan Assessment/Plan Assessment: Afebrile No leukocytosis -06/21 u/a wbc 15-20, nit neg, leuk+3; UCx <10 mixed urogenital contaminants Probable PNA- COVID19 neg x1 (overall low suspicion) -07/05 CXR: . Slightly improved moderate left pleural effusion. Slightly improved left perihilar interstitial thickening and lower lung opacity. Minimally improved right interstitial thickening and perihilar and lower lobe opacities. Improving right chest wall emphysema. Stable right chest tube. -06/26 CXR: Pulmonary vascular congestion, similar to mildly increased from the prior exam. No significant change in the small right pleural effusion or subtle infiltrate in the right lung base. -06/25 SARS-COV2 PCR neg -06/23 CXR: Right basilar infiltrate with trace right effusion. s/p Mechanical fall Rib, abdominal pain- 2ry to R rib fractures and large R pleural effusion/ hemothorax ?Post-op pos-obstructive PNA -07/03 CXR: . Interval development of diffuse opacification of the left lung. This raises possibility of having developed a left mainstem bronchus obstruction with postobstructive atelectasis. Alternatively a very large left effusion or severe left-sided pneumonia could have similar appearance, although unlikely to have developed since the prior exam. -07/01 SP Flexible bronchoscopy. Right video-assisted thoracoscopic surgery. Intrapleural pneumolysis.Evacuation of right intrathoracic blood. Intercostal nerve block. --OR Findings: Minimal amount of mucopurulent secretion was lavaged and suctioned clear. Righ hemithorax: There was noted to be some adhesions There was noted to be no protrusion of any fractured ribs into the intrathoracic cavity as the entire parietal pleura appears to be intact. -- cx NTD -06/25 Chest US: Small right pleural effusion, decreased compared to the prior exam. No significant pocket for thoracentesis. -06/22 Chest US: Positive for right pleural effusion -06/[address]: 1. 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 No acute intracranial pathology is detected. CT C/abd/p:No evidence of acute injury to the abdominal or pelvic viscera. Somewhat limited study due to motion artifact. Cholelithiasis. Acute posterior medial lower right rib fractures. Moderate to large right pleural effusion, possibly containing an element of the hemothorax. Cardiomegaly.ASCVD. No pneumothoraces. Acute on chronic anemia -08/06/18 sp EGD: Normal upper endoscopy, status post biopsy. -path: mild chronic gastritis, no H. pylori identified pAfib hx of rib fractures Sinus node dysfunction s/p PPM (batter exchange July 2018) s/p KELI GERD polycythemia vera HLD MDD anemia NSTEMI s/p normal cardiac catheterization 2019 HTN KELVIN dCHF Plan: -Continue Zosyn #3 given increased O2 requirements -07/03 SP Ceftriaxone #9 -f/u cx -Monitor CBC/CMP, temperatures -aspiration precautions -Pulm, CT sx, cards f/u Thank you for consulting [facility]. Will contiue to follow along with you. Discussed with RN Subjective Allergies: Coded Allergies: No Known Allergies (Unverified , 04/24/18) Subjective afebrile in ~4L NC on 4l NC transferred out of ICU to SDU Objective Vital Signs Last 24 Hour Vital Signs Date Time Temp Pulse Resp B/P (MAP) Pulse Ox O2 Delivery O2 Flow Rate FiO2 07/06/19 09:51 100 Nasal Cannula 4.0 36 07/06/19 09:30 104 07/06/19 09:00 104/63 07/06/19 04:00 Nasal Cannula 4.0 Nasal Cannula 4.0 Nasal Cannula 4.0 07/06/19 04:00 98.1 90 18 94/53 (67) 98 07/06/19 04:00 4.0 07/06/19 03:34 88 07/06/19 00:00 Nasal Cannula 4.0 Nasal Cannula 4.0 Nasal Cannula 4.0 07/06/19 00:00 98.1 103 18 98/64 (75) 98 07/05/19 23:44 98 07/05/19 23:00 98 18 96/54 (68) 98 07/05/19 22:00 106 29 100/47 (64) 92 07/05/19 21:47 113 18 100 Nasal Cannula 4.0 36 96 16 97 07/05/19 21:00 91 86/54 07/05/19 20:00 Nasal Cannula 4.0 Nasal Cannula 4.0 Nasal Cannula 4.0 07/05/19 20:00 4.0 07/05/19 20:00 87 07/05/19 20:00 98.8 91 18 86/54 (65) 100 07/05/19 19:04 94 Venturi Mask 14.0 55 07/05/19 19:00 87 18 86/55 (65) 100 07/05/19 18:00 102 18 86/56 (66) 98 07/05/19 17:00 96 18 87/52 (64) 99 Height (Feet): 5 Height (Inches): 0.00 Weight (Pounds): 136 Objective General Appearance: no acute distress, other - elderly female in NAD HEENT: normocephalic, atraumatic, anicteric Respiratory: decreased breath sounds Cardiovascular: normal rate Abdomen: normal bowel sounds, soft, non tender Extremities: no edema Neurologic: abnormal gait - unsteady, alert, responsive Musculoskeletal: atrophy Microbiology Date/Time Source Procedure Growth Status 07/04/19 16:25 Blood Blood Culture - Preliminary NO GROWTH AFTER 24 HOURS Resulted Laboratory Tests Test 07/06/19 04:37 White Blood Count 5.5 K/UL (4.8-10.8) Red Blood Count 2.36 M/UL (4.20-5.40) L Hemoglobin 7.1 G/DL (12.0-16.0) L Hematocrit 21.4 % (37.0-47.0) L Mean Corpuscular Volume 91 FL (80-99) Mean Corpuscular Hemoglobin 29.9 PG (27.0-31.0) Mean Corpuscular Hemoglobin Concent 32.9 G/DL (32.0-36.0) Red Cell Distribution Width 20.0 % (11.6-14.8) H Platelet Count 169 K/UL (150-450) Mean Platelet Volume 8.6 FL (6.5-10.1) Neutrophils (%) (Auto) % (45.0-75.0) Lymphocytes (%) (Auto) % (20.0-45.0) Monocytes (%) (Auto) % (1.0-10.0) Eosinophils (%) (Auto) % (0.0-3.0) Basophils (%) (Auto) % (0.0-2.0) Differential Total Cells Counted 100 Neutrophils % (Manual) 89 % (45-75) H Lymphocytes % (Manual) 8 % (20-45) L Monocytes % (Manual) 3 % (1-10) Eosinophils % (Manual) 0 % (0-3) Basophils % (Manual) 0 % (0-2) Band Neutrophils 0 % (0-8) Platelet Estimate Adequate Platelet Morphology Giant Platelets Occasional Polychromasia 1+ Hypochromasia 1+ Anisocytosis 2+ Ovalocytes 1+ Sodium Level 146 MMOL/L (136-145) H Potassium Level 3.3 MMOL/L (3.5-5.1) L Chloride Level 113 MMOL/L (98-107) H Carbon Dioxide Level 27 MMOL/L (21-32) Anion Gap 6 mmol/L (5-15) Blood Urea Nitrogen 18 mg/dL (7-18) Creatinine 0.8 MG/DL (0.55-1.30) Estimat Glomerular Filtration Rate > 60 mL/min (>60) Glucose Level 118 MG/DL (74-106) H Calcium Level 8.1 MG/DL (8.5-10.1) L Digoxin Level 1.1 NG/ML (0.9-2.0) Current Medications Medications (Trade) Dose Ordered Sig/Escobar Route PRN Reason Start Time Stop Time Status Last Admin Dose Admin Acetaminophen (Tylenol) 650 mg Q4H PRN ORAL T>100.5 07/05/19 23:20 08/04/19 23:19 Acetaminophen/ Hydrocodone Bitart ([place] 10/325) 1 tab Q4H PRN ORAL Severe Pain (Pain Scale 7-10) 07/06/19 02:00 07/09/19 13:59 Acetaminophen/ Hydrocodone Bitart ([place] 5/325) 1 tab Q4H PRN ORAL Moderate Pain (Pain Scale 4-6) 07/06/19 03:00 07/09/19 14:59 Albuterol/ Ipratropium (Albuterol/ Ipratropium) 3 ml Q4HRT PRN HHN sob 07/06/19 03:00 07/09/19 10:59 Amiodarone HCl (Cordarone) 200 mg QHS ORAL 07/06/19 21:00 09/30/19 20:59 Dextrose (Dextrose 50%) 25 ml Q30M PRN IV Hypoglycemia 07/05/19 23:30 09/20/19 18:59 Dextrose (Dextrose 50%) 50 ml Q30M PRN IV Hypoglycemia 07/05/19 23:30 09/20/19 18:59 Dextrose/Sodium Chloride 1,000 ml @ 75 mls/hr [id number] IV 07/06/19 00:00 08/05/19 00:00 07/06/19 15:20 Digoxin (Lanoxin) 0.125 mg DAILY ORAL 07/06/19 09:00 10/03/19 08:59 07/06/19 09:30 Heparin Sodium (Porcine) (Heparin 5000 units/ml) 5,000 units EVERY 12 HOURS SUBQ 07/06/19 09:00 08/19/19 20:59 07/06/19 09:29 Hydroxyzine HCl (Atarax) 25 mg Q8H PRN ORAL Itching 07/05/19 23:23 08/04/19 23:22 Lorazepam (Ativan 2mg/ml 1ml) 2 mg Q3H PRN IV For Anxiety 07/05/19 23:23 07/12/19 23:22 Metoprolol Tartrate (Lopressor) 50 mg EVERY 12 HOURS ORAL 07/06/19 09:00 09/30/19 20:59 Piperacillin Sod/ Tazobactam Sod 3.375 gm/Sodium Chloride 110 ml @ 27.5 mls/hr EVERY 8 HOURS IVPB 07/06/19 06:00 07/09/19 15:29 07/06/19 14:00 Alejandrina Arrieta M.D. July 06, 2019 16:39
--- NOTE | 2019-07-06 18:25 | Cardiology Progress Note ---
Assessment/Plan Assessment/Plan Transferred to telemetry, she is still in a fib, but with better rate control, not on anticoagulation due to recent hemothorax Subjective Subjective Coverage for Dr Araujo the patient is resting comfortably, she is no O2 mask arousable, reports no chest pain Objective Last 24 Hour Vital Signs Date Time Temp Pulse Resp B/P (MAP) Pulse Ox O2 Delivery O2 Flow Rate FiO2 07/06/19 16:00 94 07/06/19 12:00 98 07/06/19 09:51 100 Nasal Cannula 4.0 36 07/06/19 09:30 104 07/06/19 09:00 104/63 07/06/19 08:00 99 07/06/19 04:00 Nasal Cannula 4.0 Nasal Cannula 4.0 Nasal Cannula 4.0 07/06/19 04:00 98.1 90 18 94/53 (67) 98 07/06/19 04:00 4.0 07/06/19 03:34 88 07/06/19 00:00 Nasal Cannula 4.0 Nasal Cannula 4.0 Nasal Cannula 4.0 07/06/19 00:00 98.1 103 18 98/64 (75) 98 07/05/19 23:44 98 07/05/19 23:00 98 18 96/54 (68) 98 07/05/19 22:00 106 29 100/47 (64) 92 07/05/19 21:47 113 18 100 Nasal Cannula 4.0 36 96 16 97 07/05/19 21:00 91 86/54 07/05/19 20:00 Nasal Cannula 4.0 Nasal Cannula 4.0 Nasal Cannula 4.0 07/05/19 20:00 4.0 07/05/19 20:00 87 07/05/19 20:00 98.8 91 18 86/54 (65) 100 07/05/19 19:04 94 Venturi Mask 14.0 55 07/05/19 19:00 87 18 86/55 (65) 100 General Appearance: lethargic, other - on O2 NC EENT: PERRL/EOMI Neck: no JVD Rhythm: Afib Cardiovascular: systolic murmur, irregularly irregular Respiratory/Chest: lungs clear, crackles/rales, expiratory wheezing, other - right sided noise from chest tube Abdomen: soft, decreased bowel sounds Extremities: normal capillary refill Intake and Output 07/05/19 07/06/19 19:00 07:00 Intake Total 1063.5 ml 970.375 ml Output Total 210 ml 513 ml Balance 853.5 ml 457.375 ml Intake Oral 0 ml 210 ml IV Total 1063.5 ml 760.375 ml Output Urine Total 110 ml 495 ml Chest Tube Drainage Total 100 ml 18 ml # Voids 1 # Bowel Movements 2 Laboratory Tests Test 07/06/19 04:37 White Blood Count 5.5 K/UL (4.8-10.8) Red Blood Count 2.36 M/UL (4.20-5.40) L Hemoglobin 7.1 G/DL (12.0-16.0) L Hematocrit 21.4 % (37.0-47.0) L Mean Corpuscular Volume 91 FL (80-99) Mean Corpuscular Hemoglobin 29.9 PG (27.0-31.0) Mean Corpuscular Hemoglobin Concent 32.9 G/DL (32.0-36.0) Red Cell Distribution Width 20.0 % (11.6-14.8) H Platelet Count 169 K/UL (150-450) Mean Platelet Volume 8.6 FL (6.5-10.1) Neutrophils (%) (Auto) % (45.0-75.0) Lymphocytes (%) (Auto) % (20.0-45.0) Monocytes (%) (Auto) % (1.0-10.0) Eosinophils (%) (Auto) % (0.0-3.0) Basophils (%) (Auto) % (0.0-2.0) Differential Total Cells Counted 100 Neutrophils % (Manual) 89 % (45-75) H Lymphocytes % (Manual) 8 % (20-45) L Monocytes % (Manual) 3 % (1-10) Eosinophils % (Manual) 0 % (0-3) Basophils % (Manual) 0 % (0-2) Band Neutrophils 0 % (0-8) Platelet Estimate Adequate Platelet Morphology Giant Platelets Occasional Polychromasia 1+ Hypochromasia 1+ Anisocytosis 2+ Ovalocytes 1+ Sodium Level 146 MMOL/L (136-145) H Potassium Level 3.3 MMOL/L (3.5-5.1) L Chloride Level 113 MMOL/L (98-107) H Carbon Dioxide Level 27 MMOL/L (21-32) Anion Gap 6 mmol/L (5-15) Blood Urea Nitrogen 18 mg/dL (7-18) Creatinine 0.8 MG/DL (0.55-1.30) Estimat Glomerular Filtration Rate > 60 mL/min (>60) Glucose Level 118 MG/DL (74-106) H Calcium Level 8.1 MG/DL (8.5-10.1) L Digoxin Level 1.1 NG/ML (0.9-2.0) Microbiology Date/Time Source Procedure Growth Status 07/04/19 16:25 Blood Blood Culture - Preliminary NO GROWTH AFTER 24 HOURS Resulted Humaira Gutiérrez MD July 06, 2019 18:25
--- NOTE | 2019-07-06 19:00 | NUR ---
HAND-OFF: Report given to Hector ROTH.
--- NOTE | 2019-07-06 19:15 | Progress Note ---
DATE: 07/05/2019 This visit is done as a coverage for Dr. Mainor Araujo. SUBJECTIVE: The patient is lethargic, resting in bed, but she reports much better feeling, although she still has significant amount of pain in the right thorax area. PHYSICAL EXAMINATION: The patient appears stable, chronically ill. She is not in respiratory distress. She is breathing with oxygen nasal cannula. Her blood pressure was 86/54 and the heart rate 87 beats per minute, and she is afebrile. On physical exam, this is an ill-appearing patient. Lungs, she has loud rales, more on the right side, and she has a chest tube still on suction from her right lung. Her heart is irregular and there is slightly accentuated P2. Her abdomen is soft, tender in epigastric area. No rebound, no guarding. Lower extremities, no edema. Distal pulses palpable. LABORATORY AND DIAGNOSTIC DATA: His labs were all reviewed and appear that she is stable with hemoglobin 8.2 and creatinine is 0.8. On the monitor, she is in atrial fibrillation. IMPRESSION AND RECOMMENDATION: 1. Post hemothorax, post chest tube and intubation, now is doing better. 2. History of atrial fibrillation and she recurred on atrial fibrillation during this admission. She right now is on high dose of beta-blockers and she is not anticoagulated due to recent pneumothorax, so the patient is going to be followed very closely by myself and primary products inspectors. Humaira Gutiérrez M.D. DR: NAI JOB#: [id number] CC:
--- NOTE | 2019-07-06 19:30 | NUR ---
NURSE NOTES: Report received from IRA Patel. Observed pt lying in the bed, awake, denies any pain at this time. 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 On 4L NC, sat at 95%. No acute distress noted at this time. IV on R FA 22G, asymptomatic. Bed in the lowest position. Side rails up x3. Will continue to monitor.
[2019-07-06] MEDS ORDERED: Tubing IV Secondary IV ONE (20:48)
[2019-07-06] MEDS ORDERED: Tubing Blood Filter IV ONE (20:48)
[2019-07-06] MEDS ORDERED: NS 275ml ONE (20:48)
[2019-07-06] MEDS: Amiodarone 200mg tab ORAL SCH (21:00)
--- NOTE | 2019-07-06 21:14 | NUR ---
NURSE NOTES: pt refused heparin, explained benefits and risks, and still refused. Will continue to monitor.
[2019-07-07] VITALS (7 sets, daily range): BP systolic 125–162; BP diastolic 58–85
--- NOTE | 2019-07-07 00:20 | NUR ---
HAND-OFF: Report given to IRA Ford.
--- NOTE | 2019-07-07 00:21 | NUR ---
NURSE NOTES: received pt from Jose Luis ROTH., pt is awake and AO x 2-3 at this moment. pt is on 4L of NC , no SOB noted. O2sat is at 97%. pt states no pain atthis time. pt has right chest tube, and chest tube site is dry, intact, and clean. right FA 22G IV site is intact, clean, and patent. provided 2 more blankets. pt states pt wants to rest at this time. repositioned. call light within reach. bed at the lowest position, alarmed, and locked. will continue to monitor pt with plan of care,.
[2019-07-07] MEDS: D5NS 1,000 ML IV SCH ×2 (02:37→15:08)
[2019-07-07] MEDS: Piperacillin/Tazobactam 3.375 GM in NS 110 ML IVPB SCH ×3 (05:07→21:19)
[2019-07-07 05:25] LABS: BASOPHILS % (AUTO) 1.8 % (0.0-2.0); EOSINOPHILS % (AUTO) 0.4 % (0.0-3.0); HEMATOCRIT 27.4 % (37.0-47.0); HEMOGLOBIN 9.4 G/DL (12.0-16.0); LYMPHOCYTES % (AUTO) 11.2 % (20.0-45.0); MEAN CORPUSCULAR VOLUME 89 FL (80-99); MONOCYTES % (AUTO) 3.2 % (1.0-10.0); NEUTROPHILS % (AUTO) 83.5 % (45.0-75.0); PLATELET COUNT 183 K/UL (150-450); RED BLOOD COUNT 3.07 M/UL (4.20-5.40); RED CELL DISTRIBUTION WIDTH 16.4 % (11.6-14.8); WHITE BLOOD COUNT 5.8 K/UL (4.8-10.8)
[2019-07-07 05:32] LABS: ANION GAP 7 mmol/L (5-15); BLOOD UREA NITROGEN 23 mg/dL (7-18); CALCIUM 7.9 MG/DL (8.5-10.1); CARBON DIOXIDE 26 MMOL/L (21-32); CHLORIDE 113 MMOL/L (98-107); CREATININE 0.6 MG/DL (0.55-1.30); POTASSIUM 3.7 MMOL/L (3.5-5.1); SODIUM 146 MMOL/L (136-145)
--- NOTE | 2019-07-07 06:31 | NUR ---
NURSE NOTES: cleaned pt, provided new gown, provided new blanket. turned pt Q 2 hrs. oral care given. pt states no pain at this moment. call light within reach. will continue to monitor pt. no active bleeding noted.
--- NOTE | 2019-07-07 07:30 | NUR ---
HAND-OFF: Report given to Tiffanie ROTH., pt is stable condition, and endorsed plan of care.
--- NOTE | 2019-07-07 07:31 | NUR ---
NURSE NOTES: Received patient in bed. Right chest tube inplace, water seal. Patient on nasal cannula at 4LPM. Bed in lowest position. Patient denies any pain. Will continue plan of care.
[2019-07-07] MEDS: Digoxin 0.125mg tab ORAL SCH (09:11)
[2019-07-07] MEDS: Heparin 5000 units/ml inj SUBQ SCH ×2 (09:12→20:31)
[2019-07-07] MEDS: Metoprolol Tartrate 50mg tab ORAL SCH ×2 (09:12→20:32)
--- NOTE | 2019-07-07 09:25 | NUR ---
NURSE NOTES: Assisted to remove chest tube at bedside.
--- NOTE | 2019-07-07 09:27 | Diagnostic Imaging Report ---
Indication: Shortness of breath Technique: One view of the chest Comparison: 07/06/2019 Findings: . Development of complete opacification of left hemithorax. There is evidence of abrupt cut off of the left mainstem bronchus. Stable mostly interstitial disease is seen throughout the right lung. Right chest tube remains in place. Right chest wall subcutaneous emphysema persists. Left chest pacemaker remains. Impression: Complete opacification of the left hemithorax. Likely due to endobronchial obstruction. Less likely this could be due to a massive left pleural effusion. Dr. Mejia notified of this finding at the time of interpretation Other stable findings as described
--- NOTE | 2019-07-07 09:37 | Operative Note - PDOC ---
Operative Note Operative Note Date of Operation/Procedure: July 07, 2019 Pre-op Diagnosis: right hemothorax s/p vats with tube placement Procedure: right tube thoracostomy removal Post-op Diagnosis: same as pre-op Surgeon: gertrudis estrada md Specimen: none Complications: none Condition: stable Estimated Blood Loss: none Drains: none Implant(s) used?: No Indications for Procedure 81F right hemothorax s/p vats with tube placement tube has been on water seal for >24hrs. minimal output. cxr okay tube ready for removal Description of Procedure Patient was made comfortable at the bedside in the supine position. Right arm was elevated. Prior dressings removed. Prior sutures cut around the chest tube. Patient asked to respirate deeply and chest tube removed Vaseline gauze dressing and dressings applied tape applied patient tolerated chest tube removal well. Dressings in place. Will monitor. A.m. x-ray. DC planning. Gertrudis Estrada July 07, 2019 09:37
--- NOTE | 2019-07-07 09:39 | Surgery Progress Note ---
Surgery Progress Note Subjective Procedure Performed right tube thoracostomy removal Additional Comments right chest tube removed needs good respiratory suctioning and therapy AM CXR Objective Last 24 Hour Vital Signs Date Time Temp Pulse Resp B/P (MAP) Pulse Ox O2 Delivery O2 Flow Rate FiO2 07/07/19 09:12 82 151/71 07/07/19 09:11 82 07/07/19 08:50 82 07/07/19 08:00 97.7 75 20 151/71 (97) 99 07/07/19 07:20 98 Nasal Cannula 4.0 36 07/07/19 04:00 Nasal Cannula 4.0 Nasal Cannula 4.0 Nasal Cannula 4.0 07/07/19 04:00 97.5 76 20 138/58 (84) 100 07/07/19 04:00 4.0 07/07/19 03:46 81 07/07/19 00:00 Nasal Cannula 4.0 Nasal Cannula 4.0 Nasal Cannula 4.0 07/07/19 00:00 97.9 80 17 125/60 (81) 99 07/06/19 23:35 92 07/06/19 21:01 100 127/62 07/06/19 20:24 97 Nasal Cannula 4.0 36 07/06/19 20:00 4.0 07/06/19 20:00 Nasal Cannula 4.0 Nasal Cannula 4.0 Nasal Cannula 4.0 07/06/19 19:01 95 07/06/19 16:00 4.0 07/06/19 16:00 Nasal Cannula 4.0 Nasal Cannula 4.0 Nasal Cannula 4.0 07/06/19 16:00 94 07/06/19 12:00 98 07/06/19 12:00 Nasal Cannula 4.0 Nasal Cannula 4.0 Nasal Cannula 4.0 07/06/19 12:00 4.0 07/06/19 09:51 100 Nasal Cannula 4.0 36 I&O Intake and Output 07/06/19 07/07/19 18:59 06:59 Intake Total 61.875 ml 1041.25 ml Output Total 415 ml Balance 61.875 ml 626.25 ml Intake Oral 50 ml IV Total 61.875 ml 991.25 ml Output Urine Total 400 ml Chest Tube Drainage Total 15 ml Dressing: other Wound: other Drains: other Cardiovascular: RSR Respiratory: decreased breath sounds Abdomen: non-tender, present bowel sounds Extremities: no edema, no tenderness, no cyanosis Laboratory Tests Test 07/07/19 04:15 White Blood Count 5.8 K/UL (4.8-10.8) Red Blood Count 3.07 M/UL (4.20-5.40) L Hemoglobin 9.4 G/DL (12.0-16.0) #L Hematocrit 27.4 % (37.0-47.0) L Mean Corpuscular Volume 89 FL (80-99) Mean Corpuscular Hemoglobin 30.6 PG (27.0-31.0) Mean Corpuscular Hemoglobin Concent 34.3 G/DL (32.0-36.0) Red Cell Distribution Width 16.4 % (11.6-14.8) H Platelet Count 183 K/UL (150-450) Mean Platelet Volume 9.4 FL (6.5-10.1) Neutrophils (%) (Auto) 83.5 % (45.0-75.0) H Lymphocytes (%) (Auto) 11.2 % (20.0-45.0) L Monocytes (%) (Auto) 3.2 % (1.0-10.0) Eosinophils (%) (Auto) 0.4 % (0.0-3.0) Basophils (%) (Auto) 1.8 % (0.0-2.0) Sodium Level 146 MMOL/L (136-145) H Potassium Level 3.7 MMOL/L (3.5-5.1) Chloride Level 113 MMOL/L (98-107) H Carbon Dioxide Level 26 MMOL/L (21-32) Anion Gap 7 mmol/L (5-15) Blood Urea Nitrogen 23 mg/dL (7-18) H Creatinine 0.6 MG/DL (0.55-1.30) Estimat Glomerular Filtration Rate > 60 mL/min (>60) Glucose Level 127 MG/DL (74-106) H Calcium Level 7.9 MG/DL (8.5-10.1) L Magnesium Level 2.1 MG/DL (1.8-2.4) Plan Problems: (1) Hematothorax Assessment & Plan: s/p VATS recovering okay for diet keep chest tube to suction AM CXR will monitor and remove tube when stable okay for chest tube to water seal cxr noted tube removed respiratory percussion and suction AM CXR Errol Estrada July 07, 2019 09:39
--- NOTE | 2019-07-07 10:26 | NUR ---
RADIOLOGY DEPT., CHEST X-RAY DONE.-P.DYE
--- NOTE | 2019-07-07 10:30 | NUR ---
NURSE NOTES: Patient refused to use incentive spirometry. Risk and benefits explained.
--- NOTE | 2019-07-07 11:40 | NUR ---
NURSE NOTES: Pt temperature went up to 100.5 F. Pt felt hot, no shivering, no diaphoresis noted. Provided cold compress and medication to lower down temperature
--- NOTE | 2019-07-07 11:43 | Pulmonology Progress Note ---
Subjective ROS Limited/Unobtainable: No Interval Events: chest tube is out Allergies: Coded Allergies: No Known Allergies (Unverified , 04/24/18) Objective Last 24 Hour Vital Signs Date Time Temp Pulse Resp B/P (MAP) Pulse Ox O2 Delivery O2 Flow Rate FiO2 07/07/19 09:12 82 151/71 07/07/19 09:11 82 07/07/19 08:50 82 07/07/19 08:00 Nasal Cannula 4.0 Nasal Cannula 4.0 Nasal Cannula 4.0 07/07/19 08:00 97.7 75 20 151/71 (97) 99 07/07/19 07:20 98 Nasal Cannula 4.0 36 07/07/19 04:00 Nasal Cannula 4.0 Nasal Cannula 4.0 Nasal Cannula 4.0 07/07/19 04:00 97.5 76 20 138/58 (84) 100 07/07/19 04:00 4.0 07/07/19 03:46 81 07/07/19 00:00 Nasal Cannula 4.0 Nasal Cannula 4.0 Nasal Cannula 4.0 07/07/19 00:00 97.9 80 17 125/60 (81) 99 07/06/19 23:35 92 07/06/19 21:01 100 127/62 07/06/19 20:24 97 Nasal Cannula 4.0 36 07/06/19 20:00 4.0 07/06/19 20:00 Nasal Cannula 4.0 Nasal Cannula 4.0 Nasal Cannula 4.0 07/06/19 19:01 95 07/06/19 16:00 4.0 07/06/19 16:00 Nasal Cannula 4.0 Nasal Cannula 4.0 Nasal Cannula 4.0 07/06/19 16:00 94 07/06/19 12:00 98 07/06/19 12:00 Nasal Cannula 4.0 Nasal Cannula 4.0 Nasal Cannula 4.0 07/06/19 12:00 4.0 Intake and Output 07/06/19 07/07/19 19:00 07:00 Intake Total 75 ml 1041.25 ml Output Total 415 ml Balance 75 ml 626.25 ml Intake Oral 50 ml IV Total 75 ml 991.25 ml Output Urine Total 400 ml Chest Tube Drainage Total 15 ml General Appearance: WD/WN, no acute distress, other - elderly female in NAD HEENT: normocephalic, atraumatic Respiratory: chest wall non-tender, rhonchi - left, rhonchi - right Cardiovascular: normal peripheral pulses, normal rate Abdomen: normal bowel sounds, soft, non tender Genitourinary: normal external genitalia Extremities: no cyanosis Skin: no rash Microbiology Date/Time Source Procedure Growth Status 07/04/19 16:25 Blood Blood Culture - Preliminary NO GROWTH AFTER 48 HOURS Resulted Laboratory Tests 07/07/19 04:15: White Blood Count 5.8, Red Blood Count 3.07L, Hemoglobin 9.4#L, Hematocrit 27.4L , Mean Corpuscular Volume 89, Mean Corpuscular Hemoglobin 30.6, Mean Corpuscular Hemoglobin Concent 34.3, Red Cell Distribution Width 16.4H, Platelet Count 183, Mean Platelet Volume 9.4, Neutrophils (%) (Auto) 83.5H, Lymphocytes (%) (Auto) 11.2L, Monocytes (%) (Auto) 3.2, Eosinophils (%) (Auto) 0.4, Basophils (%) (Auto) 1.8, Sodium Level 146H, Potassium Level 3.7, Chloride Level 113H, Carbon Dioxide Level 26, Anion Gap 7, Blood Urea Nitrogen 23H, Creatinine 0.6, Estimat Glomerular Filtration Rate > 60, Glucose Level 127H, Calcium Level 7.9L, Magnesium Level 2.1 Current Medications Medications (Trade) Dose Ordered Sig/Escobar Route PRN Reason Start Time Stop Time Status Last Admin Dose Admin Acetaminophen (Tylenol) 650 mg Q4H PRN ORAL T>100.5 07/05/19 23:20 08/04/19 23:19 Acetaminophen/ Hydrocodone Bitart ([place] 10/325) 1 tab Q4H PRN ORAL Severe Pain (Pain Scale 7-10) 07/06/19 02:00 07/09/19 13:59 Acetaminophen/ Hydrocodone Bitart ([place] 5/325) 1 tab Q4H PRN ORAL Moderate Pain (Pain Scale 4-6) 07/06/19 03:00 07/09/19 14:59 Albuterol/ Ipratropium (Albuterol/ Ipratropium) 3 ml Q4HRT PRN HHN sob 07/06/19 03:00 07/09/19 10:59 Amiodarone HCl (Cordarone) 200 mg QHS ORAL 5/25/20 21:00 09/30/19 20:59 07/06/19 21:00 Dextrose (Dextrose 50%) 25 ml Q30M PRN IV Hypoglycemia 07/05/19 23:30 09/20/19 18:59 Dextrose (Dextrose 50%) 50 ml Q30M PRN IV Hypoglycemia 07/05/19 23:30 09/20/19 18:59 Dextrose/Sodium Chloride 1,000 ml @ 75 mls/hr [id number] IV 07/06/19 00:00 08/05/19 00:00 07/07/19 02:37 Digoxin (Lanoxin) 0.125 mg DAILY ORAL 07/06/19 09:00 10/03/19 08:59 07/07/19 09:11 Heparin Sodium (Porcine) (Heparin 5000 units/ml) 5,000 units EVERY 12 HOURS SUBQ 07/06/19 09:00 08/19/19 20:59 07/07/19 09:12 Hydroxyzine HCl (Atarax) 25 mg Q8H PRN ORAL Itching 07/05/19 23:23 08/04/19 23:22 Lorazepam (Ativan 2mg/ml 1ml) 2 mg Q3H PRN IV For Anxiety 07/05/19 23:23 07/12/19 23:22 Metoprolol Tartrate (Lopressor) 50 mg EVERY 12 HOURS ORAL 07/06/19 09:00 09/30/19 20:59 07/07/19 09:12 Piperacillin Sod/ Tazobactam Sod 3.375 gm/Sodium Chloride 110 ml @ 27.5 mls/hr EVERY 8 HOURS IVPB 07/06/19 06:00 07/09/19 15:29 07/07/19 05:07 Assessment/Plan Problems: (1) Collapse of left lung (2) RLL pneumonia (3) Thoracostomy tube in place Assessment & Plan: removed today (4) Pleural effusion (5) Chronic anticoagulation (6) Ribs, multiple fractures (7) Atrial fibrillation (8) Pacemaker (9) COPD (chronic obstructive pulmonary disease) (10) KELVIN (obstructive sleep apnea) Assessment/Plan no new complains no short of breath, despite left collapse keep left chest elevated incentive spirometry chest PT only to left site afebrile, COVID negative repeat cxr in Kelly Saha MD July 07, 2019 11:43
--- NOTE | 2019-07-07 12:00 | NUR ---
NURSE NOTES: Patient refused to use incentive spirometry. Risk and benefits explained.
--- NOTE | 2019-07-07 13:24 | Cardiac Electrophysiology PN ---
Assessment/Plan Assessment/Plan 1. Status post [employer] pacemaker implantation and subsequent generator change by me in 07/2018. The pacemaker was re-interrogated and showed normal pacemaker function. The patient continues to have episodes of atrial fibrillation. 2. Paroxysmal atrial fibrillation with rapid ventricular response. Continue amiodarone 200 mg daily ,metoprolol 50 mg b.i.d. and Dig 0.125 po daily Off anticoagulation in view of severe anemia, needing blood transfusion. 3. Chest pain, felt to be musculoskeletal by Dr. Araujo. The patient was ruled out for myocardial infarction. EF on 06/26/2019 was 55% 4. Urinary tract infection. 5. Hypertension. Continue metoprolol at this time. 6. Polycythemia vera, 7. Recurrent falls. . 8. Severe pulmonary hypertension. PA pressure of 71. 9. Hemothorax. S/P VATS by Dr Malik, extubated Chest tube removed DW RN and Dr Estrada Subjective Subjective Intermittently A or V pacing. Chest tube removed. Alert and eating. Objective Last 24 Hour Vital Signs Date Time Temp Pulse Resp B/P (MAP) Pulse Ox O2 Delivery O2 Flow Rate FiO2 07/07/19 13:14 97.0 76 143/64 (90) 07/07/19 12:31 82 07/07/19 12:00 Nasal Cannula 4.0 Nasal Cannula 4.0 Nasal Cannula 4.0 07/07/19 09:12 82 151/71 07/07/19 09:11 82 07/07/19 08:50 82 07/07/19 08:00 Nasal Cannula 4.0 Nasal Cannula 4.0 Nasal Cannula 4.0 07/07/19 08:00 97.7 75 20 151/71 (97) 99 07/07/19 07:20 98 Nasal Cannula 4.0 36 07/07/19 04:00 Nasal Cannula 4.0 Nasal Cannula 4.0 Nasal Cannula 4.0 07/07/19 04:00 97.5 76 20 138/58 (84) 100 07/07/19 04:00 4.0 07/07/19 03:46 81 07/07/19 00:00 Nasal Cannula 4.0 Nasal Cannula 4.0 Nasal Cannula 4.0 07/07/19 00:00 97.9 80 17 125/60 (81) 99 07/06/19 23:35 92 07/06/19 21:01 100 127/62 07/06/19 20:24 97 Nasal Cannula 4.0 36 07/06/19 20:00 4.0 07/06/19 20:00 Nasal Cannula 4.0 Nasal Cannula 4.0 Nasal Cannula 4.0 07/06/19 19:01 95 07/06/19 16:00 4.0 07/06/19 16:00 Nasal Cannula 4.0 Nasal Cannula 4.0 Nasal Cannula 4.0 07/06/19 16:00 94 Intake and Output 07/06/19 07/07/19 19:00 07:00 Intake Total 75 ml 1041.25 ml Output Total 415 ml Balance 75 ml 626.25 ml Intake Oral 50 ml IV Total 75 ml 991.25 ml Output Urine Total 400 ml Chest Tube Drainage Total 15 ml Laboratory Tests Test 07/07/19 04:15 White Blood Count 5.8 K/UL (4.8-10.8) Red Blood Count 3.07 M/UL (4.20-5.40) L Hemoglobin 9.4 G/DL (12.0-16.0) #L Hematocrit 27.4 % (37.0-47.0) L Mean Corpuscular Volume 89 FL (80-99) Mean Corpuscular Hemoglobin 30.6 PG (27.0-31.0) Mean Corpuscular Hemoglobin Concent 34.3 G/DL (32.0-36.0) Red Cell Distribution Width 16.4 % (11.6-14.8) H Platelet Count 183 K/UL (150-450) Mean Platelet Volume 9.4 FL (6.5-10.1) Neutrophils (%) (Auto) 83.5 % (45.0-75.0) H Lymphocytes (%) (Auto) 11.2 % (20.0-45.0) L Monocytes (%) (Auto) 3.2 % (1.0-10.0) Eosinophils (%) (Auto) 0.4 % (0.0-3.0) Basophils (%) (Auto) 1.8 % (0.0-2.0) Sodium Level 146 MMOL/L (136-145) H Potassium Level 3.7 MMOL/L (3.5-5.1) Chloride Level 113 MMOL/L (98-107) H Carbon Dioxide Level 26 MMOL/L (21-32) Anion Gap 7 mmol/L (5-15) Blood Urea Nitrogen 23 mg/dL (7-18) H Creatinine 0.6 MG/DL (0.55-1.30) Estimat Glomerular Filtration Rate > 60 mL/min (>60) Glucose Level 127 MG/DL (74-106) H Calcium Level 7.9 MG/DL (8.5-10.1) L Magnesium Level 2.1 MG/DL (1.8-2.4) Microbiology Date/Time Source Procedure Growth Status 07/04/19 16:25 Blood Blood Culture - Preliminary NO GROWTH AFTER 48 HOURS Resulted Objective HEAD AND NECK: No JVD LUNGS: Coarse rhonchi. Decreased BS on R with Chest tube draining CARDIOVASCULAR: Shows regular S1 and S2 with no gallop. ABDOMEN: Soft. EXTREMITIES: No pitting edema. SKIN: The pacemaker in the left subclavian intact. River Freitas MD July 07, 2019 13:24
--- NOTE | 2019-07-07 15:12 | Cardiology Progress Note ---
Assessment/Plan Assessment/Plan 1. Paroxysmal episodes of atrial fibrillation. 2. Sick sinus syndrome status post pacemaker implantation with generator replacement in July of 2018. 3. Profound anemia. 4. History of polycythemia. 5. Probable urinary tract infection. 6. Fall. 7. Reported history of polycythemia vera. 8. Sleep apnea history. 9. Rib fracture 10 hemothorax 11. Pulmonary htn 71 12. left lung collapse / opacifiction of left lung 13. diarrhea s/ vats now in [facility] icu tele atrial sensed / paced v sensed cxr personally reviewed right infiltrate tele personally reviewed bp is ok now but was low yest ef 55% d/w rn looks good she want to go home despite the cxr she acutaly looks good chest pt and hhn per dr aguilar d/w rn no isolation Subjective Cardiovascular: Denies: chest pain, lightheadedness, palpitations Respiratory: Denies: cough, shortness of breath Gastrointestinal/Abdominal: Denies: abdominal pain Genitourinary: Denies: burning Subjective Objective Last 24 Hour Vital Signs Date Time Temp Pulse Resp B/P (MAP) Pulse Ox O2 Delivery O2 Flow Rate FiO2 07/07/19 12:31 82 07/07/19 12:00 97.0 76 143/64 (90) 07/07/19 12:00 Nasal Cannula 4.0 Nasal Cannula 4.0 Nasal Cannula 4.0 07/07/19 09:12 82 151/71 07/07/19 09:11 82 07/07/19 08:50 82 07/07/19 08:00 Nasal Cannula 4.0 Nasal Cannula 4.0 Nasal Cannula 4.0 07/07/19 08:00 97.7 75 20 151/71 (97) 99 07/07/19 07:20 98 Nasal Cannula 4.0 36 07/07/19 04:00 Nasal Cannula 4.0 Nasal Cannula 4.0 Nasal Cannula 4.0 07/07/19 04:00 97.5 76 20 138/58 (84) 100 07/07/19 04:00 4.0 07/07/19 03:46 81 07/07/19 00:00 Nasal Cannula 4.0 Nasal Cannula 4.0 Nasal Cannula 4.0 07/07/19 00:00 97.9 80 17 125/60 (81) 99 07/06/19 23:35 92 07/06/19 21:01 100 127/62 07/06/19 20:24 97 Nasal Cannula 4.0 36 07/06/19 20:00 4.0 07/06/19 20:00 Nasal Cannula 4.0 Nasal Cannula 4.0 Nasal Cannula 4.0 07/06/19 19:01 95 07/06/19 16:00 4.0 07/06/19 16:00 Nasal Cannula 4.0 Nasal Cannula 4.0 Nasal Cannula 4.0 07/06/19 16:00 94 General Appearance: no apparent distress, alert Neck: supple Cardiovascular: regular rhythm Respiratory/Chest: decreased breath sounds - left lung , the right has bi ebasilar crakles Abdomen: normal bowel sounds, non tender, soft Extremities: no swelling Intake and Output 07/06/19 07/07/19 19:00 07:00 Intake Total 75 ml 1041.25 ml Output Total 415 ml Balance 75 ml 626.25 ml Intake Oral 50 ml IV Total 75 ml 991.25 ml Output Urine Total 400 ml Chest Tube Drainage Total 15 ml Laboratory Tests Test 07/07/19 04:15 White Blood Count 5.8 K/UL (4.8-10.8) Red Blood Count 3.07 M/UL (4.20-5.40) L Hemoglobin 9.4 G/DL (12.0-16.0) #L Hematocrit 27.4 % (37.0-47.0) L Mean Corpuscular Volume 89 FL (80-99) Mean Corpuscular Hemoglobin 30.6 PG (27.0-31.0) Mean Corpuscular Hemoglobin Concent 34.3 G/DL (32.0-36.0) Red Cell Distribution Width 16.4 % (11.6-14.8) H Platelet Count 183 K/UL (150-450) Mean Platelet Volume 9.4 FL (6.5-10.1) Neutrophils (%) (Auto) 83.5 % (45.0-75.0) H Lymphocytes (%) (Auto) 11.2 % (20.0-45.0) L Monocytes (%) (Auto) 3.2 % (1.0-10.0) Eosinophils (%) (Auto) 0.4 % (0.0-3.0) Basophils (%) (Auto) 1.8 % (0.0-2.0) Sodium Level 146 MMOL/L (136-145) H Potassium Level 3.7 MMOL/L (3.5-5.1) Chloride Level 113 MMOL/L (98-107) H Carbon Dioxide Level 26 MMOL/L (21-32) Anion Gap 7 mmol/L (5-15) Blood Urea Nitrogen 23 mg/dL (7-18) H Creatinine 0.6 MG/DL (0.55-1.30) Estimat Glomerular Filtration Rate > 60 mL/min (>60) Glucose Level 127 MG/DL (74-106) H Calcium Level 7.9 MG/DL (8.5-10.1) L Magnesium Level 2.1 MG/DL (1.8-2.4) Microbiology Date/Time Source Procedure Growth Status 07/04/19 16:25 Blood Blood Culture - Preliminary NO GROWTH AFTER 48 HOURS Resulted Mainor Araujo MD July 07, 2019 15:12
--- NOTE | 2019-07-07 15:53 | NUR ---
CASE MANAGEMENT: REVIEW SI: RIGHT HEMOTHORAX S/P VATS w/TUBE PLACEMENT . MECHANICAL FALL . ANEMIA RIGHT TUBE THORACOSTOMY REMOVAL 07/06 T 97.0 HR 76 RR 20 BP 151/71 SAT 99% NC/4L H/H 9.4/27.4 NA 146 BUN 23 CALCIUM 7.9 IS: D5 NS IVF @ 75ML/HR ZOSYN IV Q8HR AMIODARONE PO QHS DIGOXIN PO QD LOPRESSOR PO Q12HR HEPARIN SUBQ Q12HR PT EVAL CHEST PERCUSSIONS STEP DOWN UNIT STATUS DCP: PATIENT IS FROM HOME
--- NOTE | 2019-07-07 16:48 | Internal Med Progress Note ---
Subjective Date of Service: July 07, 2019 Physician Name GraceRoshan Attending Physician Antonio Adrian MD Current Medications Medications (Trade) Dose Ordered Sig/Esocbar Route PRN Reason Start Time Stop Time Status Last Admin Dose Admin Acetaminophen (Tylenol) 650 mg Q4H PRN ORAL T>100.5 07/05/19 23:20 08/04/19 23:19 Acetaminophen/ Hydrocodone Bitart ([place] 10/325) 1 tab Q4H PRN ORAL Severe Pain (Pain Scale 7-10) 07/06/19 02:00 07/09/19 13:59 Acetaminophen/ Hydrocodone Bitart ([place] 5/325) 1 tab Q4H PRN ORAL Moderate Pain (Pain Scale 4-6) 07/06/19 03:00 07/09/19 14:59 Albuterol/ Ipratropium (Albuterol/ Ipratropium) 3 ml Q4HRT PRN HHN sob 07/06/19 03:00 07/09/19 10:59 Amiodarone HCl (Cordarone) 200 mg QHS ORAL 07/06/19 21:00 09/30/19 20:59 07/06/19 21:00 Dextrose (Dextrose 50%) 25 ml Q30M PRN IV Hypoglycemia 07/05/19 23:30 09/20/19 18:59 Dextrose (Dextrose 50%) 50 ml Q30M PRN IV Hypoglycemia 07/05/19 23:30 09/20/19 18:59 Dextrose/Sodium Chloride 1,000 ml @ 75 mls/hr [id number] IV 07/06/19 00:00 08/05/19 00:00 07/07/19 15:08 Digoxin (Lanoxin) 0.125 mg DAILY ORAL 07/06/19 09:00 10/03/19 08:59 07/07/19 09:11 Heparin Sodium (Porcine) (Heparin 5000 units/ml) 5,000 units EVERY 12 HOURS SUBQ 07/06/19 09:00 08/19/19 20:59 07/07/19 09:12 Hydroxyzine HCl (Atarax) 25 mg Q8H PRN ORAL Itching 07/05/19 23:23 08/04/19 23:22 Lorazepam (Ativan 2mg/ml 1ml) 2 mg Q3H PRN IV For Anxiety 07/05/19 23:23 07/12/19 23:22 Metoprolol Tartrate (Lopressor) 50 mg EVERY 12 HOURS ORAL 07/06/19 09:00 09/30/19 20:59 07/07/19 09:12 Piperacillin Sod/ Tazobactam Sod 3.375 gm/Sodium Chloride 110 ml @ 27.5 mls/hr EVERY 8 HOURS IVPB 07/06/19 06:00 07/09/19 15:29 07/07/19 15:08 Allergies: Coded Allergies: No Known Allergies (Unverified , 04/24/18) ROS Limited/Unobtainable: No Constitutional: Reports: no symptoms HEENT: Reports: no symptoms Cardiovascular: Reports: no symptoms Respiratory: Reports: cough, shortness of breath Gastrointestinal/Abdominal: Reports: no symptoms Genitourinary: Reports: no symptoms Neurologic/Psychiatric: Reports: no symptoms Subjective 79 YO F admitted with atypical chest pain. Now severe anemia and acute congestive heart failure. Cover for Int Germán-Dr Adrian. S[facility] Step down unit Objective Last Vital Signs Date Time Temp Pulse Resp B/P (MAP) Pulse Ox O2 Delivery O2 Flow Rate FiO2 07/07/19 16:00 96.4 70 23 162/82 (108) 95 07/07/19 12:00 Nasal Cannula 4.0 Nasal Cannula 4.0 Nasal Cannula 4.0 07/07/19 07:20 36 Laboratory Tests Test 07/07/19 04:15 White Blood Count 5.8 K/UL (4.8-10.8) Red Blood Count 3.07 M/UL (4.20-5.40) L Hemoglobin 9.4 G/DL (12.0-16.0) #L Hematocrit 27.4 % (37.0-47.0) L Mean Corpuscular Volume 89 FL (80-99) Mean Corpuscular Hemoglobin 30.6 PG (27.0-31.0) Mean Corpuscular Hemoglobin Concent 34.3 G/DL (32.0-36.0) Red Cell Distribution Width 16.4 % (11.6-14.8) H Platelet Count 183 K/UL (150-450) Mean Platelet Volume 9.4 FL (6.5-10.1) Neutrophils (%) (Auto) 83.5 % (45.0-75.0) H Lymphocytes (%) (Auto) 11.2 % (20.0-45.0) L Monocytes (%) (Auto) 3.2 % (1.0-10.0) Eosinophils (%) (Auto) 0.4 % (0.0-3.0) Basophils (%) (Auto) 1.8 % (0.0-2.0) Sodium Level 146 MMOL/L (136-145) H Potassium Level 3.7 MMOL/L (3.5-5.1) Chloride Level 113 MMOL/L (98-107) H Carbon Dioxide Level 26 MMOL/L (21-32) Anion Gap 7 mmol/L (5-15) Blood Urea Nitrogen 23 mg/dL (7-18) H Creatinine 0.6 MG/DL (0.55-1.30) Estimat Glomerular Filtration Rate > 60 mL/min (>60) Glucose Level 127 MG/DL (74-106) H Calcium Level 7.9 MG/DL (8.5-10.1) L Magnesium Level 2.1 MG/DL (1.8-2.4) Intake and Output 07/06/19 07/07/19 19:00 07:00 Intake Total 75 ml 1041.25 ml Output Total 415 ml Balance 75 ml 626.25 ml Intake Oral 50 ml IV Total 75 ml 991.25 ml Output Urine Total 400 ml Chest Tube Drainage Total 15 ml Objective PHYSICAL EXAMINATION: GENERAL: The patient is well-developed and well-nourished female, in no apparent distress. HEENT: Eyes, pupils are equal and responsive to light and accommodation. Extraocular movements are intact. NECK: Supple without lymphadenopathy. CHEST: nasal canula; Lungs with coarse upper airway sounds without wheezes or rales. CARDIOVASCULAR: Regular rate. S1 and S2 normal without murmurs, rubs, or gallops. ABDOMEN: Soft, nontender, and nondistended. Positive bowel sounds. No evidence of hepatosplenomegaly. Currently, no rebound or guarding noted. EXTREMITIES: Negative for clubbing, cyanosis, or edema. RECTAL/GENITAL: Not performed. NEUROLOGIC: Cranial nerves II through XII are grossly intact without focal deficits. Assessment/Plan Assessment/Plan ASSESSMENT: This is an 79-year-old female. 1. Chest pain. 2. Fall injury. 3. Severe anemia. 4. Atrial fibrillation. 5. Polycythemia vera. 6. Hypertension. 7. Obstructive sleep apnea. 8. Coronary artery disease. 9. Hypercholesterolemia. 10. Congestive heart failure; PCL=6535 11. Right pleural hemothorax 12. Severe anemia-blood loss; S/P surgery 13. left pneumonia TREATMENT: 1. Chest pain. This may be secondary to fall injury. Initial troponin level was negative. Repeat troponin levels are pending. A Cardiology consultation has been obtained with Dr. Mainor Araujo. 2. Severe anemia. The patient has been typed and crossed for 2 units of packed RBCs. Transfuse when available. Severe anemia may be secondary to gastrointestinal hemorrhage, however, the patient denies melena or bright red blood per rectum. 3. Atrial fibrillation. As above, a Cardiology consultation has been obtained with Dr. Mainor Araujo. 4. Polycythemia vera. The patient is currently anemic. 5. Hypertension. Continue metoprolol as above. 6. Obstructive sleep apnea. 7. Coronary artery disease, status post myocardial infarction. As above, a Cardiology consultation has been obtained with Dr. Mainor Araujo. 8. Hypercholesteremia. 9. Congestive heart failure. 10. Pacemaker in situ. Pacemaker check is pending. 11. right thoracentesis pending 11. Discuss with patient regarding discharge planning, wants to go home, refused SNF. 12. CODE STATUS is full code. 13. Broad spectrum antibiotics with Rocephin IV. 14. Monitor cultures and laboratory. 15. DVT prophylaxis: SCD. 16. OOB to chair, PT Mobility 17. Dc Telemetry 18. S/P video assisted Thoracoscopic exploratory surgery 07/02/19; Thoracic surg=Dr. Malik 19. Right chest tube discontinued 07/07/19 20. Transfuse 2 units PRBC 07/06/19 21. ABX=zosyn per ID=Roshan Uriostegui MD July 07, 2019 16:48
--- NOTE | 2019-07-07 17:38 | NUR ---
FLUX TUBE ATTENDANT Bedside Swallow Evaluation Please see care activity section for complete report. Patient referred to FLUX TUBE ATTENDANT for Bedside Swallow Evaluation by Dr. Adrian. DYSPHAGIA RISK FACTORS FOR THIS 79 Y.O. FEMALE: ACUTE: Paroxysmal atrial fibrillation with rapid ventricular response, Hematothorax, Thoracostomy tube removed 07/07/19, multiple rib fx, COPD, CAD, paroxysmal A-Fib, KELVIN, UTI, severe pulmonary hypertension, polycythemia. H/O: S/p [employer] pacemaker implantation and subsequent generator (07/30), recurrent falls, HTN, CHF, Pyelonephritis, hysterectomy, neurological problems, hx of transient ischemic attacks, hx of generalized weakness, GERD, obesity, anemia. RELEVANT MEDS: Albuterol (SOB); Atarax (Anxiety); Lorazepam (Benzodiazepine, anxiety), Ativan (Anxiety). VITALS on 4L nasal cannula: HR: 70; RR: 23; SP02 95% PLOF: Patient states consuming regular solids with thin liquids, no h/o swallowing difficulties. Patient seen at bedside, is alert and confused. Insisting on going home despite clinical psychologist multiple attempts to orient the Patient and educate on current situation. Patient has intact dentition, oral motor ROM and coordination is WNL, Patient is able to express wants and needs w/o difficulties, VSS for the duration of the session. INITIAL IMPRESSIONS: Grossly functional swallow but also appears to have s/s of at least mild Oropharyngeal dysphagia with mildly increased overall transit times compounded by cognitive-behavior deficits (confused). Given thin liquids via straw, swallows are mildly slow with sequential sips, successfully completed 3 oz of water (Tad water protocol). Final swallow was slightly delayed with mild anterior spillage of thin liquids from oral cavity 2/2 incomplete labial seal. Laryngeal elevation is fair, no significant overt s/s of aspiration or oral residuals. Patient additionally seen at bedside with lunchtime meal tray, tray appears hardly touched. FLUX TUBE ATTENDANT spoke with Patient regarding reason for poor PO intake. Patient states current diet texture (regular solids) is difficult to masticate and is requesting for diet texture downgrade. HAS SILENT ASPIRATION RISK AND RISK FOR POOR PO INTAKE DUE TO COGNITIVE BEHAVIORAL DEFICITS (CONFUSED, ATTEMPTING TO LEAVE) PLAN: 1. Downgrade diet to mechanical soft chopped and continue thin liquids, type and supplements per RD 2. FLUX TUBE ATTENDANT plans to f/u for dysphagia management and tx 3x a week x 1 week 3. FLUX TUBE ATTENDANT continues to monitor Patients candidacy/need for MBSS 4. RN made aware of results, recommendations, and is aware of Patients oral care needs.
--- NOTE | 2019-07-07 19:20 | NUR ---
HAND-OFF: Report given to PATSY Bermeo RN.
--- NOTE | 2019-07-07 19:20 | NUR ---
NURSE NOTES: Received report from Helga morris RN / Tiffanie Baca RN. Patient awake in bed, A & O x 2-3, afebrile and has no respiratory distress noted. Pt smiled when name was called. On NC at 4lpm toelrating well at SatO2 98-100%. With Right forearm 22g IV line patent, intact and asymptomatic. HOB elevated. Bed is locked and side rails are up. Needs were attended. Continue with plan of care
[2019-07-07] MEDS: Amiodarone 200mg tab ORAL SCH (20:31)
--- NOTE | 2019-07-07 22:00 | NUR ---
NURSE NOTES: Patient refused incentive spirometer. explained benefits and risks. offered x 3 patient still refused
[2019-07-08] VITALS (7 sets, daily range): BP systolic 127–139; BP diastolic 63–86
--- NOTE | 2019-07-08 04:44 | NUR ---
HAND-OFF: Report given to IRA Malin.
--- NOTE | 2019-07-08 05:00 | NUR ---
NURSE NOTES: pt sleeping in the bed. No acute distress noted at this time. VS WNL. Will continue to monitor.
[2019-07-08 05:47] LABS: HEMATOCRIT 26.7 % (37.0-47.0); HEMOGLOBIN 9.3 G/DL (12.0-16.0); MEAN CORPUSCULAR VOLUME 90 FL (80-99); PLATELET COUNT 176 K/UL (150-450); RED BLOOD COUNT 2.98 M/UL (4.20-5.40); RED CELL DISTRIBUTION WIDTH 16.7 % (11.6-14.8); WHITE BLOOD COUNT 5.3 K/UL (4.8-10.8)
[2019-07-08] MEDS: Piperacillin/Tazobactam 3.375 GM in NS 110 ML IVPB SCH ×3 (05:54→22:01)
[2019-07-08] MEDS: D5NS 1,000 ML IV SCH ×2 (05:55→13:43)
[2019-07-08 06:11] LABS: ALANINE AMINOTRANSFERASE 13 U/L (12-78); ALBUMIN/GLOBULIN RATIO 0.6 (1.0-2.7); ALKALINE PHOSPHATASE 61 U/L (46-116); ANION GAP 7 mmol/L (5-15); ASPARTATE AMINO TRANSFERASE 16 U/L (15-37); BILIRUBIN,TOTAL 0.6 MG/DL (0.2-1.0); BLOOD UREA NITROGEN 17 mg/dL (7-18); CALCIUM 8.1 MG/DL (8.5-10.1); CARBON DIOXIDE 27 MMOL/L (21-32); CHLORIDE 114 MMOL/L (98-107); CREATININE 0.7 MG/DL (0.55-1.30); POTASSIUM 3.2 MMOL/L (3.5-5.1); SODIUM 148 MMOL/L (136-145)
--- NOTE | 2019-07-08 07:16 | NUR ---
HAND-OFF: Report given to IRA Armenta.
--- NOTE | 2019-07-08 07:20 | NUR ---
NURSE NOTES: Received report from IRA Amaya. The patient is sleeping on the bed without acute distress or shortness of breath but appears to have mild labored breathing. The patient's bed in the lowest position, call light in reach, and fall and aspiration precaution reinforced. The patient education reinforced for fall precaution since the patient has history of fall. The patient is on 4L NC and oxygen saturation within normal range. Per IRA Amaya, removed chest tube on 07/08/2019 and scheduled to follow up via CXR. The patient has pacemaker but the rhythm fluctuates from A-fib, A-paced, or V-paced but the patient is asymptomatic. The patient is on purewig and draining well. Skin intact. The patient has R FA 22G that is intact and patent and running IVF per order. Will follow up abnormal lab. Will continue plan of care.
--- NOTE | 2019-07-08 08:30 | NUR ---
NURSE NOTES: Notified Dr. Mejia regarding abnormal lab including Potassium level. Dr. Mejia ordered KCL 10mEq IVPB x4 total of 40mEq. Will carry out the order as soon as possible. Will continue plan of care.
[2019-07-08] MEDS: Heparin 5000 units/ml inj SUBQ SCH ×2 (09:00→21:00)
--- NOTE | 2019-07-08 09:00 | NUR ---
NURSE NOTES: Asked Dr. Estrada whether it is okay to start anti-coagulant since the patient is s/p chest tube removal on 07/07/[address] Estrada, okay to start anti-coagulant. Notified to Dr. Freitas. Will continue plan of care.
[2019-07-08] MEDS: Metoprolol Tartrate 50mg tab ORAL SCH ×2 (09:20→21:00)
[2019-07-08] MEDS: Digoxin 0.125mg tab ORAL SCH (09:20)
--- NOTE | 2019-07-08 09:30 | NUR ---
NURSE NOTES: PT at the bedside for physical therapy. Per PT, the patient strongly needs rehab as the patient has mild pain upon movement and rolling herself. Will closely monitor the patient. Will continue plan of care.
--- NOTE | 2019-07-08 10:00 | NUR ---
NURSE NOTES: Morning medication administered per order. The patient is stable at this time. Will closely monitor the patient. Will continue plan of care.
--- NOTE | 2019-07-08 10:17 | Diagnostic Imaging Report ---
Indication: Shortness of breath Technique: One view of the chest Comparison: 07/07/2019 Findings: Interim reexpansion of the left lung. There is considerable parenchymal disease throughout the left lung, however. Interim removal of previously demonstrated right chest tube. No pneumothorax. There is some pleural thickening Versus fluid at the right lung base. There is extensive right lung parenchymal interstitial and alveolar disease which appears increased from the previous study. The heart size is normal. Left chest pacemaker again demonstrated. Impression: Interim right chest tube removal. No evidence of pneumothorax Worsening bilateral parenchymal infiltrates versus edema Right lateral basilar pleural thickening versus fluid
--- NOTE | 2019-07-08 10:17 | NUR ---
RADIOLOGY DEPT., CHEST X-RAY DONE.-P.DYE
--- NOTE | 2019-07-08 11:49 | NUR ---
PT EVALUATION NOTE Patient seen for PT evaluation. Patient presents with pain on the right chest area, muscle weakness and decreased postural stability with loss of balance. Patient will benefit from skilled inpatient PT intervention to increase her muscle strength and balance for improved mobility and safety. Recommend discharge to SNF for further rehab. Kathi ROTH notified of patient's status. Addendum: 07/08/19 at 1150 by MARTY HUNT PT Amended: Links added.
--- NOTE | 2019-07-08 12:00 | NUR ---
NURSE NOTES: The patient is sleeping on the bed without acute distress or shortness of breath. The patient is on 4L NC and oxygen saturation 100%. Will closely monitor the patient. Will continue plan of care.
--- NOTE | 2019-07-08 12:34 | Internal Med Progress Note ---
Subjective Date of Service: July 08, 2019 Physician Name GraceRoshan Attending Physician Antonio Adrian MD Current Medications Medications (Trade) Dose Ordered Sig/Escobar Route PRN Reason Start Time Stop Time Status Last Admin Dose Admin Acetaminophen (Tylenol) 650 mg Q4H PRN ORAL T>100.5 07/05/19 23:20 08/04/19 23:19 07/08/19 00:10 Acetaminophen/ Hydrocodone Bitart ([place] 10/325) 1 tab Q4H PRN ORAL Severe Pain (Pain Scale 7-10) 07/06/19 02:00 07/09/19 13:59 Acetaminophen/ Hydrocodone Bitart (Obion 5/325) 1 tab Q4H PRN ORAL Moderate Pain (Pain Scale 4-6) 07/06/19 03:00 07/09/19 14:59 Albuterol/ Ipratropium (Albuterol/ Ipratropium) 3 ml Q4HRT PRN HHN sob 07/06/19 03:00 07/09/19 10:59 Amiodarone HCl (Cordarone) 200 mg QHS ORAL 07/06/19 21:00 09/30/19 20:59 07/07/19 20:31 Dextrose (Dextrose 50%) 25 ml Q30M PRN IV Hypoglycemia 07/05/19 23:30 09/20/19 18:59 Dextrose (Dextrose 50%) 50 ml Q30M PRN IV Hypoglycemia 07/05/19 23:30 09/20/19 18:59 Dextrose/Sodium Chloride 1,000 ml @ 75 mls/hr [id number] IV 07/06/19 00:00 08/05/19 00:00 07/08/19 05:55 Digoxin (Lanoxin) 0.125 mg DAILY ORAL 07/06/19 09:00 10/03/19 08:59 07/08/19 09:20 Heparin Sodium (Porcine) (Heparin 5000 units/ml) 5,000 units EVERY 12 HOURS SUBQ 07/06/19 09:00 08/19/19 20:59 07/07/19 20:31 Hydroxyzine HCl (Atarax) 25 mg Q8H PRN ORAL Itching 07/05/19 23:23 08/04/19 23:22 Lorazepam (Ativan 2mg/ml 1ml) 2 mg Q3H PRN IV For Anxiety 07/05/19 23:23 07/12/19 23:22 Metoprolol Tartrate (Lopressor) 50 mg EVERY 12 HOURS ORAL 07/06/19 09:00 09/30/19 20:59 07/08/19 09:20 Piperacillin Sod/ Tazobactam Sod 3.375 gm/Sodium Chloride 110 ml @ 27.5 mls/hr EVERY 8 HOURS IVPB 07/06/19 06:00 07/13/19 05:59 07/08/19 05:54 Potassium Chloride 100 ml @ 100 mls/hr Q1HR IVPB 07/08/19 09:00 07/08/19 12:59 07/08/19 12:24 Allergies: Coded Allergies: No Known Allergies (Unverified , 04/24/18) ROS Limited/Unobtainable: No Constitutional: Reports: no symptoms HEENT: Reports: no symptoms Cardiovascular: Reports: no symptoms Respiratory: Reports: no symptoms Gastrointestinal/Abdominal: Reports: no symptoms Genitourinary: Reports: no symptoms Neurologic/Psychiatric: Reports: no symptoms Subjective 79 YO F admitted with atypical chest pain. Now severe anemia and acute congestive heart failure. Cover for Int Med-Dr Adrian. S/P video assisted thoracoscopic exploratory surgery 07/02/19. Step down unit Objective Last Vital Signs Date Time Temp Pulse Resp B/P (MAP) Pulse Ox O2 Delivery O2 Flow Rate FiO2 07/08/19 12:00 Nasal Cannula 4.0 Nasal Cannula 4.0 Nasal Cannula 4.0 07/08/19 12:00 98.2 82 20 129/69 (89) 97 07/07/19 18:54 36 Laboratory Tests Test 07/08/19 04:00 White Blood Count 5.3 K/UL (4.8-10.8) Red Blood Count 2.98 M/UL (4.20-5.40) L Hemoglobin 9.3 G/DL (12.0-16.0) L Hematocrit 26.7 % (37.0-47.0) L Mean Corpuscular Volume 90 FL (80-99) Mean Corpuscular Hemoglobin 31.1 PG (27.0-31.0) H Mean Corpuscular Hemoglobin Concent 34.6 G/DL (32.0-36.0) Red Cell Distribution Width 16.7 % (11.6-14.8) H Platelet Count 176 K/UL (150-450) Mean Platelet Volume 9.2 FL (6.5-10.1) Neutrophils (%) (Auto) % (45.0-75.0) Lymphocytes (%) (Auto) % (20.0-45.0) Monocytes (%) (Auto) % (1.0-10.0) Eosinophils (%) (Auto) % (0.0-3.0) Basophils (%) (Auto) % (0.0-2.0) Sodium Level 148 MMOL/L (136-145) H Potassium Level 3.2 MMOL/L (3.5-5.1) L Chloride Level 114 MMOL/L (98-107) H Carbon Dioxide Level 27 MMOL/L (21-32) Anion Gap 7 mmol/L (5-15) Blood Urea Nitrogen 17 mg/dL (7-18) Creatinine 0.7 MG/DL (0.55-1.30) Estimat Glomerular Filtration Rate > 60 mL/min (>60) Glucose Level 119 MG/DL (74-106) H Calcium Level 8.1 MG/DL (8.5-10.1) L Total Bilirubin 0.6 MG/DL (0.2-1.0) Aspartate Amino Transf (AST/SGOT) 16 U/L (15-37) Alanine Aminotransferase (ALT/SGPT) 13 U/L (12-78) Alkaline Phosphatase 61 U/L (46-116) Pro-B-Type Natriuretic Peptide 9489 pg/mL (0-125) H Total Protein 5.5 G/DL (6.4-8.2) L Albumin 2.0 G/DL (3.4-5.0) L Globulin 3.5 g/dL Albumin/Globulin Ratio 0.6 (1.0-2.7) L Digoxin Level 1.1 NG/ML (0.9-2.0) Intake and Output 07/07/19 07/08/19 19:00 07:00 Intake Total 470.0 ml 1067.5 ml Output Total 10 ml Balance 460.0 ml 1067.5 ml Intake Oral 60 ml 30 ml IV Total 410.0 ml 1037.5 ml Chest Tube Drainage Total 10 ml # Voids 3 # Bowel Movements 6 1 Objective PHYSICAL EXAMINATION: GENERAL: The patient is well-developed and well-nourished female, in no apparent distress. HEENT: Eyes, pupils are equal and responsive to light and accommodation. Extraocular movements are intact. NECK: Supple without lymphadenopathy. CHEST: nasal canula; Lungs with coarse upper airway sounds without wheezes or rales. CARDIOVASCULAR: Regular rate. S1 and S2 normal without murmurs, rubs, or gallops. ABDOMEN: Soft, nontender, and nondistended. Positive bowel sounds. No evidence of hepatosplenomegaly. Currently, no rebound or guarding noted. EXTREMITIES: Negative for clubbing, cyanosis, or edema. RECTAL/GENITAL: Not performed. NEUROLOGIC: Cranial nerves II through XII are grossly intact without focal deficits. Assessment/Plan Assessment/Plan ASSESSMENT: This is an 79-year-old female. 1. Chest pain. 2. Fall injury. 3. Severe anemia. 4. Atrial fibrillation. 5. Polycythemia vera. 6. Hypertension. 7. Obstructive sleep apnea. 8. Coronary artery disease. 9. Hypercholesterolemia. 10. Congestive heart failure; MLA=0520 11. Right pleural hemothorax 12. Severe anemia 13. left pneumonia TREATMENT: 1. Chest pain. This may be secondary to fall injury. Initial troponin level was negative. Repeat troponin levels are pending. A Cardiology consultation has been obtained with Dr. Mainor Araujo. 2. Severe anemia. The patient has been typed and crossed for 2 units of packed RBCs. Transfuse when available. Severe anemia may be secondary to gastrointestinal hemorrhage, however, the patient denies melena or bright red blood per rectum. 3. Atrial fibrillation. As above, a Cardiology consultation has been obtained with Dr. Mainor Araujo. 4. Polycythemia vera. The patient is currently anemic. 5. Hypertension. Continue metoprolol as above. 6. Obstructive sleep apnea. 7. Coronary artery disease, status post myocardial infarction. As above, a Cardiology consultation has been obtained with Dr. Mainor Araujo. 8. Hypercholesteremia. 9. Congestive heart failure. 10. Pacemaker in situ. Pacemaker check is pending. 11. right thoracentesis pending 11. Discuss with patient regarding discharge planning, wants to go home, refused SNF. 12. CODE STATUS is full code. 13. Broad spectrum antibiotics with Rocephin IV. 14. Monitor cultures and laboratory. 15. DVT prophylaxis: SCD. 16. OOB to chair, PT Mobility 17. Dc Telemetry 18. S/P video assisted Thoracoscopic exploratory surgery 07/02/19; Thoracic surg=Dr. Malik 19. Right chest tube discontinued 07/07/19 20. S/P Transfusion 5 units PRBC 21. ABX=zosyn per ID=Roshan Uriostegui MD July 08, 2019 12:34
--- NOTE | 2019-07-08 14:09 | Pulmonology Progress Note ---
Subjective ROS Limited/Unobtainable: No Interval Events: chest tube is out Allergies: Coded Allergies: No Known Allergies (Unverified , 04/24/18) Objective Last 24 Hour Vital Signs Date Time Temp Pulse Resp B/P (MAP) Pulse Ox O2 Delivery O2 Flow Rate FiO2 07/08/19 12:00 Nasal Cannula 4.0 Nasal Cannula 4.0 Nasal Cannula 4.0 07/08/19 12:00 98.2 82 20 129/69 (89) 97 07/08/19 11:48 77 07/08/19 09:20 76 138/63 07/08/19 09:20 76 07/08/19 08:00 Nasal Cannula 4.0 Nasal Cannula 4.0 Nasal Cannula 4.0 07/08/19 08:00 71 07/08/19 07:36 96 Nasal Cannula 4.0 36 07/08/19 07:20 97.9 76 20 138/63 (88) 96 07/08/19 04:00 71 07/08/19 04:00 97.7 83 20 139/69 (92) 100 07/08/19 04:00 Nasal Cannula 4.0 Nasal Cannula 4.0 Nasal Cannula 4.0 07/08/19 00:40 98.2 07/08/19 00:00 Nasal Cannula 4.0 Nasal Cannula 4.0 Nasal Cannula 4.0 07/08/19 00:00 90 07/08/19 00:00 100.5 90 20 137/86 (103) 100 07/07/19 20:32 83 146/79 07/07/19 20:00 98.1 86 20 158/85 (109) 100 07/07/19 20:00 83 07/07/19 20:00 Nasal Cannula 4.0 Nasal Cannula 4.0 Nasal Cannula 4.0 07/07/19 18:54 94 Nasal Cannula 4.0 36 07/07/19 16:00 Nasal Cannula 4.0 Nasal Cannula 4.0 Nasal Cannula 4.0 07/07/19 16:00 96.4 70 23 162/82 (108) 95 07/07/19 15:23 71 Intake and Output 07/07/19 07/08/19 19:00 07:00 Intake Total 470.0 ml 1067.5 ml Output Total 10 ml Balance 460.0 ml 1067.5 ml Intake Oral 60 ml 30 ml IV Total 410.0 ml 1037.5 ml Chest Tube Drainage Total 10 ml # Voids 3 # Bowel Movements 6 1 General Appearance: WD/WN, no acute distress, other - elderly female in NAD HEENT: normocephalic, atraumatic Respiratory: chest wall non-tender, rhonchi - left, rhonchi - right Cardiovascular: normal peripheral pulses, normal rate Abdomen: normal bowel sounds, soft, non tender Genitourinary: normal external genitalia Extremities: no cyanosis Skin: no rash Laboratory Tests 07/08/19 04:00: White Blood Count 5.3, Red Blood Count 2.98L, Hemoglobin 9.3L, Hematocrit 26.7L , Mean Corpuscular Volume 90, Mean Corpuscular Hemoglobin 31.1H, Mean Corpuscular Hemoglobin Concent 34.6, Red Cell Distribution Width 16.7H, Platelet Count 176, Mean Platelet Volume 9.2, Neutrophils (%) (Auto) , Lymphocytes (%) (Auto) , Monocytes (%) (Auto) , Eosinophils (%) (Auto) , Basophils (%) (Auto) , Sodium Level 148H, Potassium Level 3.2L, Chloride Level 114H, Carbon Dioxide Level 27, Anion Gap 7, Blood Urea Nitrogen 17, Creatinine 0.7, Estimat Glomerular Filtration Rate > 60, Glucose Level 119H, Calcium Level 8.1L, Total Bilirubin 0.6, Aspartate Amino Transf (AST/SGOT) 16, Alanine Aminotransferase (ALT/SGPT) 13, Alkaline Phosphatase 61, Pro-B-Type Natriuretic Peptide 9489H, Total Protein 5.5L, Albumin 2.0L, Globulin 3.5, Albumin/Globulin Ratio 0.6L, Digoxin Level 1.1 Current Medications Medications (Trade) Dose Ordered Sig/Escobar Route PRN Reason Start Time Stop Time Status Last Admin Dose Admin Acetaminophen (Tylenol) 650 mg Q4H PRN ORAL T>100.5 07/05/19 23:20 08/04/19 23:19 07/08/19 00:10 Acetaminophen/ Hydrocodone Bitart (Wells 10/325) 1 tab Q4H PRN ORAL Severe Pain (Pain Scale 7-10) 07/06/19 02:00 07/09/19 13:59 Acetaminophen/ Hydrocodone Bitart (Wells 5/325) 1 tab Q4H PRN ORAL Moderate Pain (Pain Scale 4-6) 07/06/19 03:00 07/09/19 14:59 Albuterol/ Ipratropium (Albuterol/ Ipratropium) 3 ml Q4HRT PRN HHN sob 07/06/19 03:00 07/09/19 10:59 Amiodarone HCl (Cordarone) 200 mg QHS ORAL 07/06/19 21:00 09/30/19 20:59 07/07/19 20:31 Dextrose (Dextrose 50%) 25 ml Q30M PRN IV Hypoglycemia 07/05/19 23:30 09/20/19 18:59 Dextrose (Dextrose 50%) 50 ml Q30M PRN IV Hypoglycemia 07/05/19 23:30 09/20/19 18:59 Dextrose/Sodium Chloride 1,000 ml @ 75 mls/hr [id number] IV 07/06/19 00:00 08/05/19 00:00 07/08/19 13:43 Digoxin (Lanoxin) 0.125 mg DAILY ORAL 07/06/19 09:00 10/03/19 08:59 07/08/19 09:20 Heparin Sodium (Porcine) (Heparin 5000 units/ml) 5,000 units EVERY 12 HOURS SUBQ 07/06/19 09:00 08/19/19 20:59 07/07/19 20:31 Hydroxyzine HCl (Atarax) 25 mg Q8H PRN ORAL Itching 07/05/19 23:23 08/04/19 23:22 Lorazepam (Ativan 2mg/ml 1ml) 2 mg Q3H PRN IV For Anxiety 07/05/19 23:23 07/12/19 23:22 Metoprolol Tartrate (Lopressor) 50 mg EVERY 12 HOURS ORAL 07/06/19 09:00 09/30/19 20:59 07/08/19 09:20 Piperacillin Sod/ Tazobactam Sod 3.375 gm/Sodium Chloride 110 ml @ 27.5 mls/hr EVERY 8 HOURS IVPB 07/06/19 06:00 07/13/19 05:59 07/08/19 13:43 Assessment/Plan Problems: (1) Pulmonary edema (2) RLL pneumonia (3) Collapse of left lung Assessment & Plan: resolved (4) Thoracostomy tube in place Assessment & Plan: removed yesterday (5) Pleural effusion (6) Chronic anticoagulation (7) Ribs, multiple fractures (8) Atrial fibrillation (9) Pacemaker (10) COPD (chronic obstructive pulmonary disease) (11) KELVIN (obstructive sleep apnea) Assessment/Plan lasix time one check BNP agian no new complains no short of breath, despite left collapse keep left chest elevated incentive spirometry chest PT only to left site afebrile, COVID negative Kelly Mejia MD July 08, 2019 14:09
--- NOTE | 2019-07-08 14:30 | NUR ---
NURSE NOTES: Clarification made with Dr. Mejia regarding KCL order. Since Dr. Mejia ordered KCL 10mEq IVPB x4 total of 40mEq in the morning, he would like to D/C KCL 40mEq PO. Will carry out the order as soon as possible. Will continue plan of care.
--- NOTE | 2019-07-08 16:00 | NUR ---
NURSE NOTES: The patient is resting on the bed without acute distress or shortness of breath. 4L NC per order and oxygen saturation within normal range. L chest elevated at this time. Will continue plan of care.
--- NOTE | 2019-07-08 16:18 | Cardiac Electrophysiology PN ---
Assessment/Plan Assessment/Plan 1. Status post [employer] pacemaker implantation and subsequent generator change by me in 07/2018 with normal function. 2. Paroxysmal atrial fibrillation with rapid ventricular response. Continue amiodarone 200 mg daily ,metoprolol 50 mg b.i.d. and Dig 0.125 po daily Off anticoagulation in view of severe anemia, needing blood transfusion. 3. Chest pain, felt to be musculoskeletal by Dr. Araujo. The patient was ruled out for myocardial infarction. EF on 06/26/2019 was 55% 4. Urinary tract infection. 5. Hypertension. Continue metoprolol at this time. 6. Polycythemia vera, 7. Recurrent falls. . 8. Severe pulmonary hypertension. PA pressure of 71. 9. Hemothorax. S/P VATS by Dr Malik, extubated DW RN Subjective Subjective Intermittently A or V pacing. Alert and eating. On iv Abx Objective Last 24 Hour Vital Signs Date Time Temp Pulse Resp B/P (MAP) Pulse Ox O2 Delivery O2 Flow Rate FiO2 07/08/19 16:00 Nasal Cannula 4.0 Nasal Cannula 4.0 Nasal Cannula 4.0 07/08/19 15:35 98.6 74 20 127/79 (95) 98 07/08/19 12:00 Nasal Cannula 4.0 Nasal Cannula 4.0 Nasal Cannula 4.0 07/08/19 12:00 98.2 82 20 129/69 (89) 97 07/08/19 11:48 77 07/08/19 09:20 76 138/63 07/08/19 09:20 76 07/08/19 08:00 Nasal Cannula 4.0 Nasal Cannula 4.0 Nasal Cannula 4.0 07/08/19 08:00 71 07/08/19 07:36 96 Nasal Cannula 4.0 36 07/08/19 07:20 97.9 76 20 138/63 (88) 96 07/08/19 04:00 71 07/08/19 04:00 97.7 83 20 139/69 (92) 100 07/08/19 04:00 Nasal Cannula 4.0 Nasal Cannula 4.0 Nasal Cannula 4.0 07/08/19 00:40 98.2 07/08/19 00:00 Nasal Cannula 4.0 Nasal Cannula 4.0 Nasal Cannula 4.0 07/08/19 00:00 90 07/08/19 00:00 100.5 90 20 137/86 (103) 100 07/07/19 20:32 83 146/79 07/07/19 20:00 98.1 86 20 158/85 (109) 100 07/07/19 20:00 83 07/07/19 20:00 Nasal Cannula 4.0 Nasal Cannula 4.0 Nasal Cannula 4.0 07/07/19 18:54 94 Nasal Cannula 4.0 36 Intake and Output 07/07/19 07/08/19 19:00 07:00 Intake Total 470.0 ml 1067.5 ml Output Total 10 ml Balance 460.0 ml 1067.5 ml Intake Oral 60 ml 30 ml IV Total 410.0 ml 1037.5 ml Chest Tube Drainage Total 10 ml # Voids 3 # Bowel Movements 6 1 Laboratory Tests Test 07/08/19 04:00 White Blood Count 5.3 K/UL (4.8-10.8) Red Blood Count 2.98 M/UL (4.20-5.40) L Hemoglobin 9.3 G/DL (12.0-16.0) L Hematocrit 26.7 % (37.0-47.0) L Mean Corpuscular Volume 90 FL (80-99) Mean Corpuscular Hemoglobin 31.1 PG (27.0-31.0) H Mean Corpuscular Hemoglobin Concent 34.6 G/DL (32.0-36.0) Red Cell Distribution Width 16.7 % (11.6-14.8) H Platelet Count 176 K/UL (150-450) Mean Platelet Volume 9.2 FL (6.5-10.1) Neutrophils (%) (Auto) % (45.0-75.0) Lymphocytes (%) (Auto) % (20.0-45.0) Monocytes (%) (Auto) % (1.0-10.0) Eosinophils (%) (Auto) % (0.0-3.0) Basophils (%) (Auto) % (0.0-2.0) Sodium Level 148 MMOL/L (136-145) H Potassium Level 3.2 MMOL/L (3.5-5.1) L Chloride Level 114 MMOL/L (98-107) H Carbon Dioxide Level 27 MMOL/L (21-32) Anion Gap 7 mmol/L (5-15) Blood Urea Nitrogen 17 mg/dL (7-18) Creatinine 0.7 MG/DL (0.55-1.30) Estimat Glomerular Filtration Rate > 60 mL/min (>60) Glucose Level 119 MG/DL (74-106) H Calcium Level 8.1 MG/DL (8.5-10.1) L Total Bilirubin 0.6 MG/DL (0.2-1.0) Aspartate Amino Transf (AST/SGOT) 16 U/L (15-37) Alanine Aminotransferase (ALT/SGPT) 13 U/L (12-78) Alkaline Phosphatase 61 U/L (46-116) Pro-B-Type Natriuretic Peptide 9489 pg/mL (0-125) H Total Protein 5.5 G/DL (6.4-8.2) L Albumin 2.0 G/DL (3.4-5.0) L Globulin 3.5 g/dL Albumin/Globulin Ratio 0.6 (1.0-2.7) L Digoxin Level 1.1 NG/ML (0.9-2.0) Objective HEAD AND NECK: No JVD LUNGS: Coarse rhonchi. Decreased BS on R with Chest tube draining CARDIOVASCULAR: Shows regular S1 and S2 with no gallop. ABDOMEN: Soft. EXTREMITIES: No pitting edema. SKIN: The pacemaker in the left subclavian intact. River Freitas MD July 08, 2019 16:18
--- NOTE | 2019-07-08 17:26 | Surgery Progress Note ---
Surgery Progress Note Subjective Procedure Performed right tube thoracostomy removal Additional Comments cxr noted left lung back up comfortable ct site okay since out resume anticoag Objective Last 24 Hour Vital Signs Date Time Temp Pulse Resp B/P (MAP) Pulse Ox O2 Delivery O2 Flow Rate FiO2 07/08/19 16:00 Nasal Cannula 4.0 Nasal Cannula 4.0 Nasal Cannula 4.0 07/08/19 16:00 78 07/08/19 15:35 98.6 74 20 127/79 (95) 98 07/08/19 12:00 Nasal Cannula 4.0 Nasal Cannula 4.0 Nasal Cannula 4.0 07/08/19 12:00 98.2 82 20 129/69 (89) 97 07/08/19 11:48 77 07/08/19 09:20 76 138/63 07/08/19 09:20 76 07/08/19 08:00 Nasal Cannula 4.0 Nasal Cannula 4.0 Nasal Cannula 4.0 07/08/19 08:00 71 07/08/19 07:36 96 Nasal Cannula 4.0 36 07/08/19 07:20 97.9 76 20 138/63 (88) 96 07/08/19 04:00 71 07/08/19 04:00 97.7 83 20 139/69 (92) 100 07/08/19 04:00 Nasal Cannula 4.0 Nasal Cannula 4.0 Nasal Cannula 4.0 07/08/19 00:40 98.2 07/08/19 00:00 Nasal Cannula 4.0 Nasal Cannula 4.0 Nasal Cannula 4.0 07/08/19 00:00 90 07/08/19 00:00 100.5 90 20 137/86 (103) 100 07/07/19 20:32 83 146/79 07/07/19 20:00 98.1 86 20 158/85 (109) 100 07/07/19 20:00 83 07/07/19 20:00 Nasal Cannula 4.0 Nasal Cannula 4.0 Nasal Cannula 4.0 07/07/19 18:54 94 Nasal Cannula 4.0 36 I&O Intake and Output 07/07/19 07/08/19 19:00 07:00 Intake Total 470.0 ml 1067.5 ml Output Total 10 ml Balance 460.0 ml 1067.5 ml Intake Oral 60 ml 30 ml IV Total 410.0 ml 1037.5 ml Chest Tube Drainage Total 10 ml # Voids 3 # Bowel Movements 6 1 Dressing: other Wound: other Drains: other Cardiovascular: RSR Respiratory: decreased breath sounds Abdomen: soft, non-tender, present bowel sounds Extremities: no cyanosis Laboratory Tests Test 07/08/19 04:00 White Blood Count 5.3 K/UL (4.8-10.8) Red Blood Count 2.98 M/UL (4.20-5.40) L Hemoglobin 9.3 G/DL (12.0-16.0) L Hematocrit 26.7 % (37.0-47.0) L Mean Corpuscular Volume 90 FL (80-99) Mean Corpuscular Hemoglobin 31.1 PG (27.0-31.0) H Mean Corpuscular Hemoglobin Concent 34.6 G/DL (32.0-36.0) Red Cell Distribution Width 16.7 % (11.6-14.8) H Platelet Count 176 K/UL (150-450) Mean Platelet Volume 9.2 FL (6.5-10.1) Neutrophils (%) (Auto) % (45.0-75.0) Lymphocytes (%) (Auto) % (20.0-45.0) Monocytes (%) (Auto) % (1.0-10.0) Eosinophils (%) (Auto) % (0.0-3.0) Basophils (%) (Auto) % (0.0-2.0) Sodium Level 148 MMOL/L (136-145) H Potassium Level 3.2 MMOL/L (3.5-5.1) L Chloride Level 114 MMOL/L (98-107) H Carbon Dioxide Level 27 MMOL/L (21-32) Anion Gap 7 mmol/L (5-15) Blood Urea Nitrogen 17 mg/dL (7-18) Creatinine 0.7 MG/DL (0.55-1.30) Estimat Glomerular Filtration Rate > 60 mL/min (>60) Glucose Level 119 MG/DL (74-106) H Calcium Level 8.1 MG/DL (8.5-10.1) L Total Bilirubin 0.6 MG/DL (0.2-1.0) Aspartate Amino Transf (AST/SGOT) 16 U/L (15-37) Alanine Aminotransferase (ALT/SGPT) 13 U/L (12-78) Alkaline Phosphatase 61 U/L (46-116) Pro-B-Type Natriuretic Peptide 9489 pg/mL (0-125) H Total Protein 5.5 G/DL (6.4-8.2) L Albumin 2.0 G/DL (3.4-5.0) L Globulin 3.5 g/dL Albumin/Globulin Ratio 0.6 (1.0-2.7) L Digoxin Level 1.1 NG/ML (0.9-2.0) Plan Problems: (1) Hematothorax Assessment & Plan: s/p VATS recovering okay for diet keep chest tube to suction AM CXR will monitor and remove tube when stable okay for chest tube to water seal cxr noted tube removed respiratory percussion and suction AM CXR Interim reexpansion of the left lung. There is considerable parenchymal disease throughout the left lung, however. Interim removal of previously demonstrated right chest tube. No pneumothorax. There is some pleural thickening Versus fluid at the right lung base. There is extensive right lung parenchymal interstitial and alveolar disease which appears increased from the previous study. The heart size is normal. Left chest pacemaker again demonstrated. Impression: Interim right chest tube removal. No evidence of pneumothorax Worsening bilateral parenchymal infiltrates versus edema Right lateral basilar pleural thickening versus fluid Errol Estrada July 08, 2019 17:26
--- NOTE | 2019-07-08 17:47 | Infectious Diseases Prog Note ---
Assessment/Plan Assessment/Plan Assessment: Low grade fever; intermittent No leukocytosis -07/03 Bcx NTD -06/21 u/a wbc 15-20, nit neg, leuk+3; UCx <10 mixed urogenital contaminants Probable PNA- COVID19 neg x1 -07/07 CXR: Interim right chest tube removal. No evidence of pneumothorax. Worsening bilateral parenchymal infiltrates versus edema. Right lateral basilar pleural thickening versus fluid -07/05 CXR: . Slightly improved moderate left pleural effusion. Slightly improved left perihilar interstitial thickening and lower lung opacity. Minimally improved right interstitial thickening and perihilar and lower lobe opacities. Improving right chest wall emphysema. Stable right chest tube. -06/26 CXR: Pulmonary vascular congestion, similar to mildly increased from the prior exam. No significant change in the small right pleural effusion or subtle infiltrate in the right lung base. -06/25 SARS-COV2 PCR neg -06/23 CXR: Right basilar infiltrate with trace right effusion. s/p Mechanical fall Rib, abdominal pain- 2ry to R rib fractures and large R pleural effusion/ hemothorax ?Post-op pos-obstructive PNA -07/03 CXR: . Interval development of diffuse opacification of the left lung. This raises possibility of having developed a left mainstem bronchus obstruction with postobstructive atelectasis. Alternatively a very large left effusion or severe left-sided pneumonia could have similar appearance, although unlikely to have developed since the prior exam. -07/01 SP Flexible bronchoscopy. Right video-assisted thoracoscopic surgery. Intrapleural pneumolysis.Evacuation of right intrathoracic blood. Intercostal nerve block. --OR Findings: Minimal amount of mucopurulent secretion was lavaged and suctioned clear. Righ hemithorax: There was noted to be some adhesions There was noted to be no protrusion of any fractured ribs into the intrathoracic cavity as the entire parietal pleura appears to be intact. -- cx neg (aerobic and anaerobic) --AFB smear neg; cx p -06/25 Chest US: Small right pleural effusion, decreased compared to the prior exam. No significant pocket for thoracentesis. -06/22 Chest US: Positive for right pleural effusion -06/[address]: 1. 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 No acute intracranial pathology is detected. CT C/abd/p:No evidence of acute injury to the abdominal or pelvic viscera. Somewhat limited study due to motion artifact. Cholelithiasis. Acute posterior medial lower right rib fractures. Moderate to large right pleural effusion, possibly containing an element of the hemothorax. Cardiomegaly.ASCVD. No pneumothoraces. Acute on chronic anemia -08/06/18 sp EGD: Normal upper endoscopy, status post biopsy. -path: mild chronic gastritis, no H. pylori identified pAfib hx of rib fractures Sinus node dysfunction s/p PPM (batter exchange July 2018) s/p KELI GERD polycythemia vera HLD MDD anemia NSTEMI s/p normal cardiac catheterization 2019 HTN KELVIN dCHF Plan: -Continue empiric Zosyn #/7 (abx d#13) -07/03 SP Ceftriaxone #9 -f/u cx -Monitor CBC/CMP, temperatures -aspiration precautions -Pulm, CT sx, cards f/u -COVID 19 neg x1; will send 2nd test as febrile, worsening CXR and O2 requirements. Thank you for consulting [facility]. Will contiue to follow along with you. Discussed with RN Subjective Allergies: Coded Allergies: No Known Allergies (Unverified , 04/24/18) Subjective Tm 100.5 on 4l NC no leukocytosis Objective Vital Signs Last 24 Hour Vital Signs Date Time Temp Pulse Resp B/P (MAP) Pulse Ox O2 Delivery O2 Flow Rate FiO2 07/08/19 16:00 Nasal Cannula 4.0 Nasal Cannula 4.0 Nasal Cannula 4.0 07/08/19 16:00 78 07/08/19 15:35 98.6 74 20 127/79 (95) 98 07/08/19 12:00 Nasal Cannula 4.0 Nasal Cannula 4.0 Nasal Cannula 4.0 07/08/19 12:00 98.2 82 20 129/69 (89) 97 07/08/19 11:48 77 07/08/19 09:20 76 138/63 07/08/19 09:20 76 07/08/19 08:00 Nasal Cannula 4.0 Nasal Cannula 4.0 Nasal Cannula 4.0 07/08/19 08:00 71 07/08/19 07:36 96 Nasal Cannula 4.0 36 07/08/19 07:20 97.9 76 20 138/63 (88) 96 07/08/19 04:00 71 07/08/19 04:00 97.7 83 20 139/69 (92) 100 07/08/19 04:00 Nasal Cannula 4.0 Nasal Cannula 4.0 Nasal Cannula 4.0 07/08/19 00:40 98.2 07/08/19 00:00 Nasal Cannula 4.0 Nasal Cannula 4.0 Nasal Cannula 4.0 07/08/19 00:00 90 07/08/19 00:00 100.5 90 20 137/86 (103) 100 07/07/19 20:32 83 146/79 07/07/19 20:00 98.1 86 20 158/85 (109) 100 07/07/19 20:00 83 07/07/19 20:00 Nasal Cannula 4.0 Nasal Cannula 4.0 Nasal Cannula 4.0 07/07/19 18:54 94 Nasal Cannula 4.0 36 Height (Feet): 5 Height (Inches): 0.00 Weight (Pounds): 141 Objective General Appearance: no acute distress, other - elderly female in NAD HEENT: normocephalic, atraumatic, anicteric Respiratory: decreased breath sounds Cardiovascular: normal rate Abdomen: normal bowel sounds, soft, non tender Extremities: no edema Neurologic: abnormal gait - unsteady, alert, responsive Musculoskeletal: atrophy Laboratory Tests Test 07/08/19 04:00 White Blood Count 5.3 K/UL (4.8-10.8) Red Blood Count 2.98 M/UL (4.20-5.40) L Hemoglobin 9.3 G/DL (12.0-16.0) L Hematocrit 26.7 % (37.0-47.0) L Mean Corpuscular Volume 90 FL (80-99) Mean Corpuscular Hemoglobin 31.1 PG (27.0-31.0) H Mean Corpuscular Hemoglobin Concent 34.6 G/DL (32.0-36.0) Red Cell Distribution Width 16.7 % (11.6-14.8) H Platelet Count 176 K/UL (150-450) Mean Platelet Volume 9.2 FL (6.5-10.1) Neutrophils (%) (Auto) % (45.0-75.0) Lymphocytes (%) (Auto) % (20.0-45.0) Monocytes (%) (Auto) % (1.0-10.0) Eosinophils (%) (Auto) % (0.0-3.0) Basophils (%) (Auto) % (0.0-2.0) Sodium Level 148 MMOL/L (136-145) H Potassium Level 3.2 MMOL/L (3.5-5.1) L Chloride Level 114 MMOL/L (98-107) H Carbon Dioxide Level 27 MMOL/L (21-32) Anion Gap 7 mmol/L (5-15) Blood Urea Nitrogen 17 mg/dL (7-18) Creatinine 0.7 MG/DL (0.55-1.30) Estimat Glomerular Filtration Rate > 60 mL/min (>60) Glucose Level 119 MG/DL (74-106) H Calcium Level 8.1 MG/DL (8.5-10.1) L Total Bilirubin 0.6 MG/DL (0.2-1.0) Aspartate Amino Transf (AST/SGOT) 16 U/L (15-37) Alanine Aminotransferase (ALT/SGPT) 13 U/L (12-78) Alkaline Phosphatase 61 U/L (46-116) Pro-B-Type Natriuretic Peptide 9489 pg/mL (0-125) H Total Protein 5.5 G/DL (6.4-8.2) L Albumin 2.0 G/DL (3.4-5.0) L Globulin 3.5 g/dL Albumin/Globulin Ratio 0.6 (1.0-2.7) L Digoxin Level 1.1 NG/ML (0.9-2.0) Current Medications Medications (Trade) Dose Ordered Sig/Escobar Route PRN Reason Start Time Stop Time Status Last Admin Dose Admin Acetaminophen (Tylenol) 650 mg Q4H PRN ORAL T>100.5 07/05/19 23:20 08/04/19 23:19 07/08/19 00:10 Acetaminophen/ Hydrocodone Bitart (Stover 10/325) 1 tab Q4H PRN ORAL Severe Pain (Pain Scale 7-10) 07/06/19 02:00 07/09/19 13:59 Acetaminophen/ Hydrocodone Bitart (Stover 5/325) 1 tab Q4H PRN ORAL Moderate Pain (Pain Scale 4-6) 07/06/19 03:00 07/09/19 14:59 Albuterol/ Ipratropium (Albuterol/ Ipratropium) 3 ml Q4HRT PRN HHN sob 07/06/19 03:00 07/09/19 10:59 Amiodarone HCl (Cordarone) 200 mg QHS ORAL 07/06/19 21:00 09/30/19 20:59 07/07/19 20:31 Dextrose (Dextrose 50%) 25 ml Q30M PRN IV Hypoglycemia 07/05/19 23:30 09/20/19 18:59 Dextrose (Dextrose 50%) 50 ml Q30M PRN IV Hypoglycemia 07/05/19 23:30 09/20/19 18:59 Digoxin (Lanoxin) 0.125 mg DAILY ORAL 07/06/19 09:00 10/03/19 08:59 07/08/19 09:20 Heparin Sodium (Porcine) (Heparin 5000 units/ml) 5,000 units EVERY 12 HOURS SUBQ 07/06/19 09:00 08/19/19 20:59 07/07/19 20:31 Hydroxyzine HCl (Atarax) 25 mg Q8H PRN ORAL Itching 07/05/19 23:23 08/04/19 23:22 Lorazepam (Ativan 2mg/ml 1ml) 2 mg Q3H PRN IV For Anxiety 07/05/19 23:23 07/12/19 23:22 Metoprolol Tartrate (Lopressor) 50 mg EVERY 12 HOURS ORAL 07/06/19 09:00 09/30/19 20:59 07/08/19 09:20 Piperacillin Sod/ Tazobactam Sod 3.375 gm/Sodium Chloride 110 ml @ 27.5 mls/hr EVERY 8 HOURS IVPB 07/06/19 06:00 07/13/19 05:59 07/08/19 13:43 Alejandrina Arrieta M.D. July 08, 2019 17:47
--- NOTE | 2019-07-08 18:00 | NUR ---
TRANSFER TO FLOOR: Patient transferred to [facility] with primary nurse's assistance per Dr. Mejia's order. Report given to IRA Varma and Kalyani, RN. Belongings and medications given to IRA Varma and Kalyani RN. Family and or S/O informed of transfer. The patient's bed in the lowest position, call light in reach, and fall and aspiration precaution reinforced. IV site intact and patent. 4L NC and oxygen saturation within normal range. Endorsed plan of care.
--- NOTE | 2019-07-08 18:02 | NUR ---
NURSE NOTES: Pt transferred from SDU. Received report from IRA Armenta. A/O x 3. No s/s of acute respiratory or cardiac distress. On O2 4L NC. Pacemaker on left chest. SL on rt FA 22G patent and intact. Incentive spirometer at bedside. Per Dr. Arrieta, to swab pt for Covid testing. Called nursing loading rack supervisor for a swab but none available at the moment. Bed in low position, side rails up x3 and call light within reach. Will continue plan of care.
[2019-07-08] MEDS ORDERED: Albuterol/Ipratropium 3ml neb HHN PRN (18:15)
[2019-07-08] MEDS ORDERED: HYDROcodone/Acetamin 10/325 tab ORAL PRN (18:15)
[2019-07-08] MEDS ORDERED: HYDROcodone/Acetamin 5/325 tab ORAL PRN (18:15)
[2019-07-08] MEDS ORDERED: HydrOXYzine tab 25mg tab ORAL PRN (18:16)
[2019-07-08] MEDS ORDERED: LORazepam Inj 2mg/ml 1ml IV PRN (18:16)
--- NOTE | 2019-07-08 18:24 | Cardiology Progress Note ---
Assessment/Plan Assessment/Plan 1. Paroxysmal episodes of atrial fibrillation. 2. Sick sinus syndrome status post pacemaker implantation with generator replacement in July of 2018. 3. Profound anemia. 4. History of polycythemia. 5. Probable urinary tract infection. 6. Fall. 7. Reported history of polycythemia vera. 8. Sleep apnea history. 9. Rib fracture 10 hemothorax 11. Pulmonary htn 71 12. left lung collapse / opacifiction of left lung 13. diarrhea s/ vats out of icu on tele tele atrial sensed / paced v sensed cxr personally reviewed and compared to yes the lef t lugn appear much more expanded there seem to be bilat infiltrates tele personally reviewed bp is ok now but was low yest ef 55% d/w rn looks good covid beign retested as had fever and bilat infiltrated d/w rn in isolation again pui bnp in am Subjective Subjective back in droplet isolation beign rechecked for covid again no new complaint per rn per rn No s/s of acute respiratory or cardiac distress. On O2 4L NC. Pacemaker on left chest. SL on rt FA 22G patent and intact. Incentive spirometer at bedside. Per Dr. Arrieta, to swab pt for Covid testing Objective Last 24 Hour Vital Signs Date Time Temp Pulse Resp B/P (MAP) Pulse Ox O2 Delivery O2 Flow Rate FiO2 07/08/19 17:58 97.7 83 20 138/71 (93) 98 07/08/19 16:00 Nasal Cannula 4.0 Nasal Cannula 4.0 Nasal Cannula 4.0 07/08/19 16:00 78 07/08/19 15:35 98.6 74 20 127/79 (95) 98 07/08/19 12:00 Nasal Cannula 4.0 Nasal Cannula 4.0 Nasal Cannula 4.0 07/08/19 12:00 98.2 82 20 129/69 (89) 97 07/08/19 11:48 77 07/08/19 09:20 76 138/63 07/08/19 09:20 76 07/08/19 08:00 Nasal Cannula 4.0 Nasal Cannula 4.0 Nasal Cannula 4.0 07/08/19 08:00 71 07/08/19 07:36 96 Nasal Cannula 4.0 36 07/08/19 07:20 97.9 76 20 138/63 (88) 96 07/08/19 04:00 71 07/08/19 04:00 97.7 83 20 139/69 (92) 100 07/08/19 04:00 Nasal Cannula 4.0 Nasal Cannula 4.0 Nasal Cannula 4.0 07/08/19 00:40 98.2 07/08/19 00:00 Nasal Cannula 4.0 Nasal Cannula 4.0 Nasal Cannula 4.0 07/08/19 00:00 90 07/08/19 00:00 100.5 90 20 137/86 (103) 100 07/07/19 20:32 83 146/79 07/07/19 20:00 98.1 86 20 158/85 (109) 100 07/07/19 20:00 83 07/07/19 20:00 Nasal Cannula 4.0 Nasal Cannula 4.0 Nasal Cannula 4.0 07/07/19 18:54 94 Nasal Cannula 4.0 36 Intake and Output 07/07/19 07/08/19 19:00 07:00 Intake Total 470.0 ml 1067.5 ml Output Total 10 ml Balance 460.0 ml 1067.5 ml Intake Oral 60 ml 30 ml IV Total 410.0 ml 1037.5 ml Chest Tube Drainage Total 10 ml # Voids 3 # Bowel Movements 6 1 Laboratory Tests Test 07/08/19 04:00 White Blood Count 5.3 K/UL (4.8-10.8) Red Blood Count 2.98 M/UL (4.20-5.40) L Hemoglobin 9.3 G/DL (12.0-16.0) L Hematocrit 26.7 % (37.0-47.0) L Mean Corpuscular Volume 90 FL (80-99) Mean Corpuscular Hemoglobin 31.1 PG (27.0-31.0) H Mean Corpuscular Hemoglobin Concent 34.6 G/DL (32.0-36.0) Red Cell Distribution Width 16.7 % (11.6-14.8) H Platelet Count 176 K/UL (150-450) Mean Platelet Volume 9.2 FL (6.5-10.1) Neutrophils (%) (Auto) % (45.0-75.0) Lymphocytes (%) (Auto) % (20.0-45.0) Monocytes (%) (Auto) % (1.0-10.0) Eosinophils (%) (Auto) % (0.0-3.0) Basophils (%) (Auto) % (0.0-2.0) Sodium Level 148 MMOL/L (136-145) H Potassium Level 3.2 MMOL/L (3.5-5.1) L Chloride Level 114 MMOL/L (98-107) H Carbon Dioxide Level 27 MMOL/L (21-32) Anion Gap 7 mmol/L (5-15) Blood Urea Nitrogen 17 mg/dL (7-18) Creatinine 0.7 MG/DL (0.55-1.30) Estimat Glomerular Filtration Rate > 60 mL/min (>60) Glucose Level 119 MG/DL (74-106) H Calcium Level 8.1 MG/DL (8.5-10.1) L Total Bilirubin 0.6 MG/DL (0.2-1.0) Aspartate Amino Transf (AST/SGOT) 16 U/L (15-37) Alanine Aminotransferase (ALT/SGPT) 13 U/L (12-78) Alkaline Phosphatase 61 U/L (46-116) Pro-B-Type Natriuretic Peptide 9489 pg/mL (0-125) H Total Protein 5.5 G/DL (6.4-8.2) L Albumin 2.0 G/DL (3.4-5.0) L Globulin 3.5 g/dL Albumin/Globulin Ratio 0.6 (1.0-2.7) L Digoxin Level 1.1 NG/ML (0.9-2.0) Objective per dr joshi HEAD AND NECK: No JVD LUNGS: Coarse rhonchi. Decreased BS on R with Chest tube draining CARDIOVASCULAR: Shows regular S1 and S2 with no gallop. ABDOMEN: Soft. EXTREMITIES: No pitting edema. SKIN: The pacemaker in the left subclavian intac Mainor Araujo MD July 08, 2019 18:24
--- NOTE | 2019-07-08 19:17 | NUR ---
HAND-OFF: Report given to Lindsey.Endorsed swab to be done in AM once swab is available. Endorsed plan of care.
--- NOTE | 2019-07-08 19:20 | NUR ---
NURSE NOTES: Received report and endorsement of care from Kalyani Gallardo RN. Pt in stable condition, no signs or symptoms of pain or distress noted at this time. Pt bed alarm armed, bed in lowest position, call light within reach. Pt instructed to use call light from any assistance needed, verbalized understanding. Will continue close monitoring and plan of care.
[2019-07-08] MEDS: Amiodarone 200mg tab ORAL SCH (21:00)
[2019-07-09] VITALS: BP 101/65
[2019-07-09 04:00] VITALS: BP 104/61
[2019-07-09] MEDS: Piperacillin/Tazobactam 3.375 GM in NS 110 ML IVPB SCH ×3 (06:05→21:12)
[2019-07-09 07:21] LABS: ALANINE AMINOTRANSFERASE 10 U/L (12-78); ALBUMIN 1.9 G/DL (3.4-5.0); ALBUMIN/GLOBULIN RATIO 0.6 (1.0-2.7); ALKALINE PHOSPHATASE 60 U/L (46-116); ANION GAP 5 mmol/L (5-15); ASPARTATE AMINO TRANSFERASE 13 U/L (15-37); BILIRUBIN,TOTAL 0.7 MG/DL (0.2-1.0); BLOOD UREA NITROGEN 16 mg/dL (7-18); CALCIUM 8.5 MG/DL (8.5-10.1); CARBON DIOXIDE 30 MMOL/L (21-32); CHLORIDE 111 MMOL/L (98-107); CREATININE 0.7 MG/DL (0.55-1.30); POTASSIUM 3.3 MMOL/L (3.5-5.1); SODIUM 146 MMOL/L (136-145)
--- NOTE | 2019-07-09 07:22 | NUR ---
HAND-OFF: Report given to Marimar Fuentes RN. Pt in stable condition, plan of care endorsed.
--- NOTE | 2019-07-09 07:25 | NUR ---
NURSE NOTES: Received report from Lindsey/RN, Patient is awake and alert, Lying semi-garcia's. On 4L nasal canula, no acute distress/SOB noted, Able to make needs known. Trice pain at this time. Bed in low position and locked. Alarm engaged, Side rails up x3, Call light within reach, Encouraged to use call light when needed. Will continue plan of care.
[2019-07-09 07:33] LABS: HEMATOCRIT 25.6 % (37.0-47.0); HEMOGLOBIN 8.8 G/DL (12.0-16.0); MEAN CORPUSCULAR VOLUME 89 FL (80-99); PLATELET COUNT 166 K/UL (150-450); RED BLOOD COUNT 2.88 M/UL (4.20-5.40); RED CELL DISTRIBUTION WIDTH 17.2 % (11.6-14.8); WHITE BLOOD COUNT 6.7 K/UL (4.8-10.8)
[2019-07-09 08:00] VITALS: BP 122/58
[2019-07-09] MEDS: Metoprolol Tartrate 50mg tab ORAL SCH ×2 (08:54→21:10)
[2019-07-09] MEDS: Digoxin 0.125mg tab ORAL SCH (08:54)
[2019-07-09] MEDS: Heparin 5000 units/ml inj SUBQ SCH ×2 (08:55→21:11)
--- NOTE | 2019-07-09 10:02 | Diagnostic Imaging Report ---
Procedure: XRAY Chest 1v Reason for study: Reason For Exam: [id number] Comparison films: 07/08/2019. FINDINGS: Pacer remains in place. Extensive bilateral alveolar densities are mostly unchanged. Cardio make and small effusions unchanged. The bony thorax appear unremarkable. IMPRESSION: NO SIGNIFICANT CHANGE COMPARED TO PREVIOUS EXAM.
--- NOTE | 2019-07-09 10:29 | Surgery Progress Note ---
Surgery Progress Note Subjective Procedure Performed right tube thoracostomy removal Additional Comments cxr stable exam stable dressings okay no n/v/f/c/ Objective Last 24 Hour Vital Signs Date Time Temp Pulse Resp B/P (MAP) Pulse Ox O2 Delivery O2 Flow Rate FiO2 07/09/19 08:54 64 122/58 07/09/19 08:54 64 07/09/19 08:00 97.5 64 20 122/58 (79) 100 07/09/19 04:00 86 07/09/19 04:00 98.1 86 22 104/61 (75) 98 07/09/19 00:00 75 07/09/19 00:00 97.7 89 20 101/65 (77) 98 07/08/19 21:00 77 129/84 07/08/19 20:00 97.2 75 21 129/85 (100) 99 07/08/19 19:28 95 Nasal Cannula 4.0 36 07/08/19 18:00 Nasal Cannula 4.0 Nasal Cannula 4.0 Nasal Cannula 4.0 07/08/19 17:58 97.7 83 20 138/71 (93) 98 07/08/19 16:00 Nasal Cannula 4.0 Nasal Cannula 4.0 Nasal Cannula 4.0 07/08/19 16:00 78 07/08/19 15:35 98.6 74 20 127/79 (95) 98 07/08/19 12:00 Nasal Cannula 4.0 Nasal Cannula 4.0 Nasal Cannula 4.0 07/08/19 12:00 98.2 82 20 129/69 (89) 97 07/08/19 11:48 77 I&O Intake and Output 07/08/19 07/09/19 19:00 07:00 Intake Total 500 ml 300 ml Output Total 1200 ml Balance -700 ml 300 ml Intake Oral 500 ml 300 ml Output Urine Total 1200 ml # Voids 1 # Bowel Movements 2 Dressing: other Wound: other Drains: other Cardiovascular: RSR Respiratory: decreased breath sounds Abdomen: soft, non-tender, present bowel sounds Extremities: no cyanosis Laboratory Tests Test 07/09/19 06:30 White Blood Count 6.7 K/UL (4.8-10.8) Red Blood Count 2.88 M/UL (4.20-5.40) L Hemoglobin 8.8 G/DL (12.0-16.0) L Hematocrit 25.6 % (37.0-47.0) L Mean Corpuscular Volume 89 FL (80-99) Mean Corpuscular Hemoglobin 30.4 PG (27.0-31.0) Mean Corpuscular Hemoglobin Concent 34.2 G/DL (32.0-36.0) Red Cell Distribution Width 17.2 % (11.6-14.8) H Platelet Count 166 K/UL (150-450) Mean Platelet Volume 8.4 FL (6.5-10.1) Neutrophils (%) (Auto) % (45.0-75.0) Lymphocytes (%) (Auto) % (20.0-45.0) Monocytes (%) (Auto) % (1.0-10.0) Eosinophils (%) (Auto) % (0.0-3.0) Basophils (%) (Auto) % (0.0-2.0) Differential Total Cells Counted 100 Neutrophils % (Manual) 87 % (45-75) H Lymphocytes % (Manual) 8 % (20-45) L Monocytes % (Manual) 2 % (1-10) Eosinophils % (Manual) 2 % (0-3) Basophils % (Manual) 1 % (0-2) Band Neutrophils 0 % (0-8) Platelet Estimate Adequate Platelet Morphology Normal Hypochromasia 2+ Anisocytosis 1+ Spherocytes 1+ Sodium Level 146 MMOL/L (136-145) H Potassium Level 3.3 MMOL/L (3.5-5.1) L Chloride Level 111 MMOL/L (98-107) H Carbon Dioxide Level 30 MMOL/L (21-32) Anion Gap 5 mmol/L (5-15) Blood Urea Nitrogen 16 mg/dL (7-18) Creatinine 0.7 MG/DL (0.55-1.30) Estimat Glomerular Filtration Rate > 60 mL/min (>60) Glucose Level 99 MG/DL (74-106) Calcium Level 8.5 MG/DL (8.5-10.1) Total Bilirubin 0.7 MG/DL (0.2-1.0) Aspartate Amino Transf (AST/SGOT) 13 U/L (15-37) L Alanine Aminotransferase (ALT/SGPT) 10 U/L (12-78) L Alkaline Phosphatase 60 U/L (46-116) Pro-B-Type Natriuretic Peptide 8388 pg/mL (0-125) H Total Protein 5.3 G/DL (6.4-8.2) L Albumin 1.9 G/DL (3.4-5.0) L Globulin 3.4 g/dL Albumin/Globulin Ratio 0.6 (1.0-2.7) L Plan Problems: (1) Hematothorax Assessment & Plan: s/p VATS recovering okay for diet keep chest tube to suction AM CXR will monitor and remove tube when stable okay for chest tube to water seal cxr noted tube removed respiratory percussion and suction AM CXR Interim reexpansion of the left lung. There is considerable parenchymal disease throughout the left lung, however. Interim removal of previously demonstrated right chest tube. No pneumothorax. There is some pleural thickening Versus fluid at the right lung base. There is extensive right lung parenchymal interstitial and alveolar disease which appears increased from the previous study. The heart size is normal. Left chest pacemaker again demonstrated. Impression: Interim right chest tube removal. No evidence of pneumothorax Worsening bilateral parenchymal infiltrates versus edema Right lateral basilar pleural thickening versus fluid Errol Estrada July 09, 2019 10:29
--- NOTE | 2019-07-09 10:40 | NUR ---
RD ASSESSMENT & RECOMMENDATIONS SEE CARE ACTIVITY FOR COMPLETE ASSESSMENT DAILY ESTIMATED NEEDS: Needs based on Cardiac/ 61kg 25-30kcal/kg kcals/kg 9881-2478 total kcals 1-1.2 g protein/kg 61-73 g total protein 20-25 mL/kg 7037-8370 total fluid mLs NUTRITION DIAGNOSIS: Decreased sodium needs r/t cardiac history and clinical status as evidenced by pt w/ CHF, elev BNP (7896-> 1958->8388) CURRENT DIET:REGULAR PO DIET RECOMMENDATIONS: Maintain liberalized regular if w/ continued poor/variable PO ADDITIONAL RECOMMENDATIONS: 1) Calibrated bed scale wts for accurate CBW 2) LOW NA diet w/ PO intake consistently >50% 3) Ensure Enlive (chocolate per pt request) BID w/ meals 4) Monitor for hypoglycemia w/ poor PO- monitor need for added D5 5) MVI x 1 as supplement 6) Monitor lytes, replete as needed (low K)
--- NOTE | 2019-07-09 11:15 | NUR ---
PT NOTE Attempted to see patient for PT treatment. Patient declined to participate due to fatigue, Marimar RN notified. Will follow.
[2019-07-09 12:00] VITALS: BP 113/56
--- NOTE | 2019-07-09 12:22 | Pulmonology Progress Note ---
Subjective ROS Limited/Unobtainable: No Interval Events: chest tube is out Allergies: Coded Allergies: No Known Allergies (Unverified , 04/24/18) Objective Last 24 Hour Vital Signs Date Time Temp Pulse Resp B/P (MAP) Pulse Ox O2 Delivery O2 Flow Rate FiO2 07/09/19 09:00 Nasal Cannula 4.0 Nasal Cannula 4.0 Nasal Cannula 4.0 07/09/19 08:54 64 122/58 07/09/19 08:54 64 07/09/19 08:00 65 07/09/19 08:00 97.5 64 20 122/58 (79) 100 07/09/19 04:00 86 07/09/19 04:00 98.1 86 22 104/61 (75) 98 07/09/19 00:00 75 07/09/19 00:00 97.7 89 20 101/65 (77) 98 07/08/19 21:00 77 129/84 07/08/19 20:00 97.2 75 21 129/85 (100) 99 07/08/19 19:28 95 Nasal Cannula 4.0 36 07/08/19 18:00 Nasal Cannula 4.0 Nasal Cannula 4.0 Nasal Cannula 4.0 07/08/19 17:58 97.7 83 20 138/71 (93) 98 07/08/19 16:00 Nasal Cannula 4.0 Nasal Cannula 4.0 Nasal Cannula 4.0 07/08/19 16:00 78 07/08/19 15:35 98.6 74 20 127/79 (95) 98 Intake and Output 07/08/19 07/09/19 19:00 07:00 Intake Total 500 ml 300 ml Output Total 1200 ml Balance -700 ml 300 ml Intake Oral 500 ml 300 ml Output Urine Total 1200 ml # Voids 1 # Bowel Movements 2 General Appearance: WD/WN, no acute distress, other - elderly female in NAD HEENT: normocephalic, atraumatic Respiratory: chest wall non-tender, rhonchi - left, rhonchi - right Cardiovascular: normal peripheral pulses, normal rate Abdomen: normal bowel sounds, soft, non tender Genitourinary: normal external genitalia Extremities: no cyanosis Skin: no rash Laboratory Tests 07/09/19 06:30: White Blood Count 6.7, Red Blood Count 2.88L, Hemoglobin 8.8L, Hematocrit 25.6L , Mean Corpuscular Volume 89, Mean Corpuscular Hemoglobin 30.4, Mean Corpuscular Hemoglobin Concent 34.2, Red Cell Distribution Width 17.2H, Platelet Count 166, Mean Platelet Volume 8.4, Neutrophils (%) (Auto) , Lymphocytes (%) (Auto) , Monocytes (%) (Auto) , Eosinophils (%) (Auto) , Basophils (%) (Auto) , Differential Total Cells Counted 100, Neutrophils % ( Manual) 87H, Lymphocytes % (Manual) 8L, Monocytes % (Manual) 2, Eosinophils % ( Manual) 2, Basophils % (Manual) 1, Band Neutrophils 0, Platelet Estimate Adequate, Platelet Morphology Normal, Hypochromasia 2+, Anisocytosis 1+, Spherocytes 1+, Sodium Level 146H, Potassium Level 3.3L, Chloride Level 111H, Carbon Dioxide Level 30, Anion Gap 5, Blood Urea Nitrogen 16, Creatinine 0.7, Estimat Glomerular Filtration Rate > 60, Glucose Level 99, Calcium Level 8.5, Total Bilirubin 0.7, Aspartate Amino Transf (AST/SGOT) 13L, Alanine Aminotransferase (ALT/SGPT) 10L, Alkaline Phosphatase 60, Pro-B-Type Natriuretic Peptide 8388H, Total Protein 5.3L, Albumin 1.9L, Globulin 3.4, Albumin/Globulin Ratio 0.6L Current Medications Medications (Trade) Dose Ordered Sig/Escobar Route PRN Reason Start Time Stop Time Status Last Admin Dose Admin Acetaminophen (Tylenol) 650 mg Q4H PRN ORAL T>100.5 07/08/19 18:15 08/07/19 18:14 Acetaminophen/ Hydrocodone Bitart ([place] 10/325) 1 tab Q4H PRN ORAL Severe Pain (Pain Scale 7-10) 07/08/19 18:15 07/15/19 18:14 Acetaminophen/ Hydrocodone Bitart ([place] 5/325) 1 tab Q4H PRN ORAL Moderate Pain (Pain Scale 4-6) 07/08/19 18:15 07/15/19 18:14 Albuterol/ Ipratropium (Albuterol/ Ipratropium) 3 ml Q4H PRN HHN sob 07/08/19 18:15 07/13/19 18:14 Amiodarone HCl (Cordarone) 200 mg QHS ORAL 07/08/19 21:00 09/30/19 20:59 07/08/19 21:00 Dextrose (Dextrose 50%) 25 ml Q30M PRN IV Hypoglycemia 07/08/19 18:30 09/20/19 18:59 Dextrose (Dextrose 50%) 50 ml Q30M PRN IV Hypoglycemia 07/08/19 18:30 09/20/19 18:59 Digoxin (Lanoxin) 0.125 mg DAILY ORAL 07/09/19 09:00 10/03/19 08:59 07/09/19 08:54 Heparin Sodium (Porcine) (Heparin 5000 units/ml) 5,000 units EVERY 12 HOURS SUBQ 07/08/19 21:00 08/19/19 20:59 07/09/19 08:55 Hydroxyzine HCl (Atarax) 25 mg Q8H PRN ORAL Itching 07/08/19 18:16 08/07/19 18:15 Lorazepam (Ativan 2mg/ml 1ml) 2 mg Q3H PRN IV For Anxiety 07/08/19 18:16 07/15/19 18:15 Metoprolol Tartrate (Lopressor) 50 mg EVERY 12 HOURS ORAL 07/08/19 21:00 09/30/19 20:59 07/09/19 08:54 Piperacillin Sod/ Tazobactam Sod 3.375 gm/Sodium Chloride 110 ml @ 27.5 mls/hr EVERY 8 HOURS IVPB 07/08/19 22:00 07/13/19 05:59 07/09/19 06:05 Potassium Chloride (K-Dur) 40 meq ONCE ORAL 07/09/19 14:00 07/09/19 15:00 Assessment/Plan Problems: (1) Pulmonary edema (2) RLL pneumonia (3) Collapse of left lung Assessment & Plan: resolved (4) Thoracostomy tube in place Assessment & Plan: removed yesterday (5) Pleural effusion (6) Chronic anticoagulation (7) Ribs, multiple fractures (8) Atrial fibrillation (9) Pacemaker (10) COPD (chronic obstructive pulmonary disease) (11) KELVIN (obstructive sleep apnea) Assessment/Plan lasix bid for a few days cxr reviewed: Extensive bilateral alveolar densities check BNP agian no new complains no short of breath, despite left collapse keep left chest elevated incentive spirometry chest PT only to left site afebrile, COVID negative Zarrabi,Mirali MD July 09, 2019 12:22
--- NOTE | 2019-07-09 14:08 | NUR ---
TOLL LINEMAN DAILY TX NOTE Patient with ongoing variable PO intake at meals. Current diet is mechanical soft chopped with thin liquids. 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 MD to consider allowing Patient to have food from home in approved diet texture to optimize PO intake, maintain adequate nutrition/hydration, and for and quality of life. At this time, Patient's variable PO intake appears to be related to preference versus deficits. However, TOLL LINEMAN plans to f/u 1-2x for dysphagia management and training/education, in addition to assuring Patient is safe on current diet texture. TOLL LINEMAN endorsed information to RN. TOLL LINEMAN will continue to f/u
--- NOTE | 2019-07-09 15:27 | Cardiac Electrophysiology PN ---
Assessment/Plan Assessment/Plan 1. Status post [employer] pacer implantation 2010 and generator change by me in 07/2018 with normal function. 2. Paroxysmal atrial fibrillation with rapid ventricular response. Continue amiodarone 200 mg daily ,metoprolol 50 mg b.i.d. and Dig 0.125 po daily Off anticoagulation in view of severe anemia, needing blood transfusion. 3. Chest pain, felt to be musculoskeletal by Dr. Araujo. The patient was ruled out for myocardial infarction. EF on 06/26/2019 was 55% 4. Urinary tract infection. 5. Hypertension. Continue metoprolol at this time. 6. Polycythemia vera, 7. Recurrent falls. . 8. Severe pulmonary hypertension. PA pressure of 71. 9. Hemothorax. S/P VATS by Dr Malik, extubated DW RN Subjective Subjective Intermittently A or V pacing. Alert and eating. On iv Abx Objective Last 24 Hour Vital Signs Date Time Temp Pulse Resp B/P (MAP) Pulse Ox O2 Delivery O2 Flow Rate FiO2 07/09/19 12:00 97.5 60 20 113/56 (75) 100 07/09/19 12:00 61 07/09/19 09:00 Nasal Cannula 4.0 Nasal Cannula 4.0 Nasal Cannula 4.0 07/09/19 08:54 64 122/58 07/09/19 08:54 64 07/09/19 08:00 65 07/09/19 08:00 97.5 64 20 122/58 (79) 100 07/09/19 04:00 86 07/09/19 04:00 98.1 86 22 104/61 (75) 98 07/09/19 00:00 75 07/09/19 00:00 97.7 89 20 101/65 (77) 98 07/08/19 21:00 77 129/84 07/08/19 20:00 97.2 75 21 129/85 (100) 99 07/08/19 19:28 95 Nasal Cannula 4.0 36 07/08/19 18:00 Nasal Cannula 4.0 Nasal Cannula 4.0 Nasal Cannula 4.0 07/08/19 17:58 97.7 83 20 138/71 (93) 98 07/08/19 16:00 Nasal Cannula 4.0 Nasal Cannula 4.0 Nasal Cannula 4.0 07/08/19 16:00 78 07/08/19 15:35 98.6 74 20 127/79 (95) 98 Intake and Output 07/08/19 07/09/19 19:00 07:00 Intake Total 500 ml 300 ml Output Total 1200 ml Balance -700 ml 300 ml Intake Oral 500 ml 300 ml Output Urine Total 1200 ml # Voids 1 # Bowel Movements 2 Laboratory Tests Test 07/09/19 06:30 White Blood Count 6.7 K/UL (4.8-10.8) Red Blood Count 2.88 M/UL (4.20-5.40) L Hemoglobin 8.8 G/DL (12.0-16.0) L Hematocrit 25.6 % (37.0-47.0) L Mean Corpuscular Volume 89 FL (80-99) Mean Corpuscular Hemoglobin 30.4 PG (27.0-31.0) Mean Corpuscular Hemoglobin Concent 34.2 G/DL (32.0-36.0) Red Cell Distribution Width 17.2 % (11.6-14.8) H Platelet Count 166 K/UL (150-450) Mean Platelet Volume 8.4 FL (6.5-10.1) Neutrophils (%) (Auto) % (45.0-75.0) Lymphocytes (%) (Auto) % (20.0-45.0) Monocytes (%) (Auto) % (1.0-10.0) Eosinophils (%) (Auto) % (0.0-3.0) Basophils (%) (Auto) % (0.0-2.0) Differential Total Cells Counted 100 Neutrophils % (Manual) 87 % (45-75) H Lymphocytes % (Manual) 8 % (20-45) L Monocytes % (Manual) 2 % (1-10) Eosinophils % (Manual) 2 % (0-3) Basophils % (Manual) 1 % (0-2) Band Neutrophils 0 % (0-8) Platelet Estimate Adequate Platelet Morphology Normal Hypochromasia 2+ Anisocytosis 1+ Spherocytes 1+ Sodium Level 146 MMOL/L (136-145) H Potassium Level 3.3 MMOL/L (3.5-5.1) L Chloride Level 111 MMOL/L (98-107) H Carbon Dioxide Level 30 MMOL/L (21-32) Anion Gap 5 mmol/L (5-15) Blood Urea Nitrogen 16 mg/dL (7-18) Creatinine 0.7 MG/DL (0.55-1.30) Estimat Glomerular Filtration Rate > 60 mL/min (>60) Glucose Level 99 MG/DL (74-106) Calcium Level 8.5 MG/DL (8.5-10.1) Total Bilirubin 0.7 MG/DL (0.2-1.0) Aspartate Amino Transf (AST/SGOT) 13 U/L (15-37) L Alanine Aminotransferase (ALT/SGPT) 10 U/L (12-78) L Alkaline Phosphatase 60 U/L (46-116) Pro-B-Type Natriuretic Peptide 8388 pg/mL (0-125) H Total Protein 5.3 G/DL (6.4-8.2) L Albumin 1.9 G/DL (3.4-5.0) L Globulin 3.4 g/dL Albumin/Globulin Ratio 0.6 (1.0-2.7) L Objective HEAD AND NECK: No JVD LUNGS: Coarse rhonchi. Decreased BS on R with Chest tube draining CARDIOVASCULAR: Shows regular S1 and S2 with no gallop. ABDOMEN: Soft. EXTREMITIES: No pitting edema. SKIN: The pacemaker in the left subclavian intact. River Freitas MD July 09, 2019 15:27
[2019-07-09 16:00] VITALS: BP 112/68
--- NOTE | 2019-07-09 16:39 | Infectious Diseases Prog Note ---
Assessment/Plan Assessment/Plan Assessment: Low grade fever; intermittent No leukocytosis -07/03 Bcx NTD -06/21 u/a wbc 15-20, nit neg, leuk+3; UCx <10 mixed urogenital contaminants Probable PNA- COVID19 neg x1 -07/07 CXR: Interim right chest tube removal. No evidence of pneumothorax. Worsening bilateral parenchymal infiltrates versus edema. Right lateral basilar pleural thickening versus fluid -07/05 CXR: . Slightly improved moderate left pleural effusion. Slightly improved left perihilar interstitial thickening and lower lung opacity. Minimally improved right interstitial thickening and perihilar and lower lobe opacities. Improving right chest wall emphysema. Stable right chest tube. -06/26 CXR: Pulmonary vascular congestion, similar to mildly increased from the prior exam. No significant change in the small right pleural effusion or subtle infiltrate in the right lung base. -06/25 SARS-COV2 PCR neg -06/23 CXR: Right basilar infiltrate with trace right effusion. s/p Mechanical fall Rib, abdominal pain- 2ry to R rib fractures and large R pleural effusion/ hemothorax ?Post-op pos-obstructive PNA -07/03 CXR: . Interval development of diffuse opacification of the left lung. This raises possibility of having developed a left mainstem bronchus obstruction with postobstructive atelectasis. Alternatively a very large left effusion or severe left-sided pneumonia could have similar appearance, although unlikely to have developed since the prior exam. -07/01 SP Flexible bronchoscopy. Right video-assisted thoracoscopic surgery. Intrapleural pneumolysis.Evacuation of right intrathoracic blood. Intercostal nerve block. --OR Findings: Minimal amount of mucopurulent secretion was lavaged and suctioned clear. Righ hemithorax: There was noted to be some adhesions There was noted to be no protrusion of any fractured ribs into the intrathoracic cavity as the entire parietal pleura appears to be intact. -- cx neg (aerobic and anaerobic) --AFB smear neg; cx p -06/25 Chest US: Small right pleural effusion, decreased compared to the prior exam. No significant pocket for thoracentesis. -06/22 Chest US: Positive for right pleural effusion -06/[address]: 1. 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 No acute intracranial pathology is detected. CT C/abd/p:No evidence of acute injury to the abdominal or pelvic viscera. Somewhat limited study due to motion artifact. Cholelithiasis. Acute posterior medial lower right rib fractures. Moderate to large right pleural effusion, possibly containing an element of the hemothorax. Cardiomegaly.ASCVD. No pneumothoraces. Acute on chronic anemia -08/06/18 sp EGD: Normal upper endoscopy, status post biopsy. -path: mild chronic gastritis, no H. pylori identified pAfib hx of rib fractures Sinus node dysfunction s/p PPM (batter exchange July 2018) s/p KELI GERD polycythemia vera HLD MDD anemia NSTEMI s/p normal cardiac catheterization 2019 HTN KELVIN dCHF Plan: -Continue empiric Zosyn #6/7 (abx d#14) -07/03 SP Ceftriaxone #9 -f/u cx -Monitor CBC/CMP, temperatures -aspiration precautions -Pulm, CT sx, cards f/u -COVID 19 neg x1; will send 2nd test as febrile, worsening CXR and O2 requirements. Thank you for consulting [facility]. Will contiue to follow along with you. Discussed with RN Subjective Allergies: Coded Allergies: No Known Allergies (Unverified , 04/24/18) Subjective afebrile >36hrs on 4l NC no leukocytosis Objective Vital Signs Last 24 Hour Vital Signs Date Time Temp Pulse Resp B/P (MAP) Pulse Ox O2 Delivery O2 Flow Rate FiO2 07/09/19 16:00 97.6 66 20 112/68 (83) 100 07/09/19 16:00 62 07/09/19 12:00 97.5 60 20 113/56 (75) 100 07/09/19 12:00 61 07/09/19 09:00 Nasal Cannula 4.0 Nasal Cannula 4.0 Nasal Cannula 4.0 07/09/19 08:54 64 122/58 07/09/19 08:54 64 07/09/19 08:00 65 07/09/19 08:00 97.5 64 20 122/58 (79) 100 07/09/19 04:00 86 07/09/19 04:00 98.1 86 22 104/61 (75) 98 07/09/19 00:00 75 07/09/19 00:00 97.7 89 20 101/65 (77) 98 5/27/20 21:00 77 129/84 5/27/20 20:00 97.2 75 21 129/85 (100) 99 07/08/19 19:28 95 Nasal Cannula 4.0 36 07/08/19 18:00 Nasal Cannula 4.0 Nasal Cannula 4.0 Nasal Cannula 4.0 07/08/19 17:58 97.7 83 20 138/71 (93) 98 Height (Feet): 5 Height (Inches): 0.00 Weight (Pounds): 140 Objective General Appearance: no acute distress, other - elderly female in NAD HEENT: normocephalic, atraumatic, anicteric Respiratory: decreased breath sounds Cardiovascular: normal rate Abdomen: normal bowel sounds, soft, non tender Extremities: no edema Neurologic: abnormal gait - unsteady, alert, responsive Musculoskeletal: atrophy Laboratory Tests Test 07/09/19 06:30 White Blood Count 6.7 K/UL (4.8-10.8) Red Blood Count 2.88 M/UL (4.20-5.40) L Hemoglobin 8.8 G/DL (12.0-16.0) L Hematocrit 25.6 % (37.0-47.0) L Mean Corpuscular Volume 89 FL (80-99) Mean Corpuscular Hemoglobin 30.4 PG (27.0-31.0) Mean Corpuscular Hemoglobin Concent 34.2 G/DL (32.0-36.0) Red Cell Distribution Width 17.2 % (11.6-14.8) H Platelet Count 166 K/UL (150-450) Mean Platelet Volume 8.4 FL (6.5-10.1) Neutrophils (%) (Auto) % (45.0-75.0) Lymphocytes (%) (Auto) % (20.0-45.0) Monocytes (%) (Auto) % (1.0-10.0) Eosinophils (%) (Auto) % (0.0-3.0) Basophils (%) (Auto) % (0.0-2.0) Differential Total Cells Counted 100 Neutrophils % (Manual) 87 % (45-75) H Lymphocytes % (Manual) 8 % (20-45) L Monocytes % (Manual) 2 % (1-10) Eosinophils % (Manual) 2 % (0-3) Basophils % (Manual) 1 % (0-2) Band Neutrophils 0 % (0-8) Platelet Estimate Adequate Platelet Morphology Normal Hypochromasia 2+ Anisocytosis 1+ Spherocytes 1+ Sodium Level 146 MMOL/L (136-145) H Potassium Level 3.3 MMOL/L (3.5-5.1) L Chloride Level 111 MMOL/L (98-107) H Carbon Dioxide Level 30 MMOL/L (21-32) Anion Gap 5 mmol/L (5-15) Blood Urea Nitrogen 16 mg/dL (7-18) Creatinine 0.7 MG/DL (0.55-1.30) Estimat Glomerular Filtration Rate > 60 mL/min (>60) Glucose Level 99 MG/DL (74-106) Calcium Level 8.5 MG/DL (8.5-10.1) Total Bilirubin 0.7 MG/DL (0.2-1.0) Aspartate Amino Transf (AST/SGOT) 13 U/L (15-37) L Alanine Aminotransferase (ALT/SGPT) 10 U/L (12-78) L Alkaline Phosphatase 60 U/L (46-116) Pro-B-Type Natriuretic Peptide 8388 pg/mL (0-125) H Total Protein 5.3 G/DL (6.4-8.2) L Albumin 1.9 G/DL (3.4-5.0) L Globulin 3.4 g/dL Albumin/Globulin Ratio 0.6 (1.0-2.7) L Current Medications Medications (Trade) Dose Ordered Sig/Escobar Route PRN Reason Start Time Stop Time Status Last Admin Dose Admin Acetaminophen (Tylenol) 650 mg Q4H PRN ORAL T>100.5 07/08/19 18:15 08/07/19 18:14 Acetaminophen/ Hydrocodone Bitart ([place] 10/325) 1 tab Q4H PRN ORAL Severe Pain (Pain Scale 7-10) 07/08/19 18:15 07/15/19 18:14 Acetaminophen/ Hydrocodone Bitart ([place] 5/325) 1 tab Q4H PRN ORAL Moderate Pain (Pain Scale 4-6) 07/08/19 18:15 07/15/19 18:14 Albuterol/ Ipratropium (Albuterol/ Ipratropium) 3 ml Q4H PRN HHN sob 07/08/19 18:15 07/13/19 18:14 Amiodarone HCl (Cordarone) 200 mg QHS ORAL 07/08/19 21:00 09/30/19 20:59 07/08/19 21:00 Dextrose (Dextrose 50%) 25 ml Q30M PRN IV Hypoglycemia 07/08/19 18:30 09/20/19 18:59 Dextrose (Dextrose 50%) 50 ml Q30M PRN IV Hypoglycemia 07/08/19 18:30 09/20/19 18:59 Digoxin (Lanoxin) 0.125 mg DAILY ORAL 07/09/19 09:00 10/03/19 08:59 07/09/19 08:54 Furosemide (Lasix) 20 mg EVERY 12 HOURS IV 07/09/19 13:00 08/08/19 12:59 07/09/19 13:32 Heparin Sodium (Porcine) (Heparin 5000 units/ml) 5,000 units EVERY 12 HOURS SUBQ 07/08/19 21:00 08/19/19 20:59 07/09/19 08:55 Hydroxyzine HCl (Atarax) 25 mg Q8H PRN ORAL Itching 07/08/19 18:16 08/07/19 18:15 Lorazepam (Ativan 2mg/ml 1ml) 2 mg Q3H PRN IV For Anxiety 07/08/19 18:16 07/15/19 18:15 Metoprolol Tartrate (Lopressor) 50 mg EVERY 12 HOURS ORAL 07/08/19 21:00 09/30/19 20:59 07/09/19 08:54 Piperacillin Sod/ Tazobactam Sod 3.375 gm/Sodium Chloride 110 ml @ 27.5 mls/hr EVERY 8 HOURS IVPB 07/08/19 22:00 07/13/19 05:59 07/09/19 13:32 Alejandrina Arrieta M.D. July 09, 2019 16:39
--- NOTE | 2019-07-09 17:10 | Internal Med Progress Note ---
Subjective Date of Service: July 09, 2019 Physician Name GraceRoshan Attending Physician Antonio Adrian MD Current Medications Medications (Trade) Dose Ordered Sig/Escobar Route PRN Reason Start Time Stop Time Status Last Admin Dose Admin Acetaminophen (Tylenol) 650 mg Q4H PRN ORAL T>100.5 07/08/19 18:15 08/07/19 18:14 Acetaminophen/ Hydrocodone Bitart ([employer] 10/325) 1 tab Q4H PRN ORAL Severe Pain (Pain Scale 7-10) 07/08/19 18:15 07/15/19 18:14 Acetaminophen/ Hydrocodone Bitart ([employer] 5/325) 1 tab Q4H PRN ORAL Moderate Pain (Pain Scale 4-6) 07/08/19 18:15 07/15/19 18:14 Albuterol/ Ipratropium (Albuterol/ Ipratropium) 3 ml Q4H PRN HHN sob 07/08/19 18:15 07/13/19 18:14 Amiodarone HCl (Cordarone) 200 mg QHS ORAL 07/08/19 21:00 09/30/19 20:59 07/08/19 21:00 Dextrose (Dextrose 50%) 25 ml Q30M PRN IV Hypoglycemia 07/08/19 18:30 09/20/19 18:59 Dextrose (Dextrose 50%) 50 ml Q30M PRN IV Hypoglycemia 07/08/19 18:30 09/20/19 18:59 Digoxin (Lanoxin) 0.125 mg DAILY ORAL 07/09/19 09:00 10/03/19 08:59 07/09/19 08:54 Furosemide (Lasix) 20 mg EVERY 12 HOURS IV 07/09/19 13:00 08/08/19 12:59 07/09/19 13:32 Heparin Sodium (Porcine) (Heparin 5000 units/ml) 5,000 units EVERY 12 HOURS SUBQ 07/08/19 21:00 08/19/19 20:59 07/09/19 08:55 Hydroxyzine HCl (Atarax) 25 mg Q8H PRN ORAL Itching 07/08/19 18:16 08/07/19 18:15 Lorazepam (Ativan 2mg/ml 1ml) 2 mg Q3H PRN IV For Anxiety 07/08/19 18:16 07/15/19 18:15 Metoprolol Tartrate (Lopressor) 50 mg EVERY 12 HOURS ORAL 07/08/19 21:00 09/30/19 20:59 07/09/19 08:54 Piperacillin Sod/ Tazobactam Sod 3.375 gm/Sodium Chloride 110 ml @ 27.5 mls/hr EVERY 8 HOURS IVPB 07/08/19 22:00 07/13/19 05:59 07/09/19 13:32 Allergies: Coded Allergies: No Known Allergies (Unverified , 04/24/18) ROS Limited/Unobtainable: No Constitutional: Reports: no symptoms HEENT: Reports: no symptoms Cardiovascular: Reports: no symptoms Respiratory: Reports: no symptoms Gastrointestinal/Abdominal: Reports: no symptoms Genitourinary: Reports: no symptoms Neurologic/Psychiatric: Reports: no symptoms Subjective 79 YO F admitted with atypical chest pain. Now severe anemia and acute congestive heart failure. Cover for Int Germán-Dr Adrian. S/P video assisted thoracoscopic exploratory surgery 07/02/19. Tele Objective Last Vital Signs Date Time Temp Pulse Resp B/P (MAP) Pulse Ox O2 Delivery O2 Flow Rate FiO2 07/09/19 16:00 97.6 66 20 112/68 (83) 100 07/09/19 09:00 Nasal Cannula 4.0 Nasal Cannula 4.0 Nasal Cannula 4.0 07/09/19 07:57 36 Laboratory Tests Test 07/09/19 06:30 White Blood Count 6.7 K/UL (4.8-10.8) Red Blood Count 2.88 M/UL (4.20-5.40) L Hemoglobin 8.8 G/DL (12.0-16.0) L Hematocrit 25.6 % (37.0-47.0) L Mean Corpuscular Volume 89 FL (80-99) Mean Corpuscular Hemoglobin 30.4 PG (27.0-31.0) Mean Corpuscular Hemoglobin Concent 34.2 G/DL (32.0-36.0) Red Cell Distribution Width 17.2 % (11.6-14.8) H Platelet Count 166 K/UL (150-450) Mean Platelet Volume 8.4 FL (6.5-10.1) Neutrophils (%) (Auto) % (45.0-75.0) Lymphocytes (%) (Auto) % (20.0-45.0) Monocytes (%) (Auto) % (1.0-10.0) Eosinophils (%) (Auto) % (0.0-3.0) Basophils (%) (Auto) % (0.0-2.0) Differential Total Cells Counted 100 Neutrophils % (Manual) 87 % (45-75) H Lymphocytes % (Manual) 8 % (20-45) L Monocytes % (Manual) 2 % (1-10) Eosinophils % (Manual) 2 % (0-3) Basophils % (Manual) 1 % (0-2) Band Neutrophils 0 % (0-8) Platelet Estimate Adequate Platelet Morphology Normal Hypochromasia 2+ Anisocytosis 1+ Spherocytes 1+ Sodium Level 146 MMOL/L (136-145) H Potassium Level 3.3 MMOL/L (3.5-5.1) L Chloride Level 111 MMOL/L (98-107) H Carbon Dioxide Level 30 MMOL/L (21-32) Anion Gap 5 mmol/L (5-15) Blood Urea Nitrogen 16 mg/dL (7-18) Creatinine 0.7 MG/DL (0.55-1.30) Estimat Glomerular Filtration Rate > 60 mL/min (>60) Glucose Level 99 MG/DL (74-106) Calcium Level 8.5 MG/DL (8.5-10.1) Total Bilirubin 0.7 MG/DL (0.2-1.0) Aspartate Amino Transf (AST/SGOT) 13 U/L (15-37) L Alanine Aminotransferase (ALT/SGPT) 10 U/L (12-78) L Alkaline Phosphatase 60 U/L (46-116) Pro-B-Type Natriuretic Peptide 8388 pg/mL (0-125) H Total Protein 5.3 G/DL (6.4-8.2) L Albumin 1.9 G/DL (3.4-5.0) L Globulin 3.4 g/dL Albumin/Globulin Ratio 0.6 (1.0-2.7) L Intake and Output 07/08/19 07/09/19 19:00 07:00 Intake Total 500 ml 300 ml Output Total 1200 ml Balance -700 ml 300 ml Intake Oral 500 ml 300 ml Output Urine Total 1200 ml # Voids 1 # Bowel Movements 2 Objective PHYSICAL EXAMINATION: GENERAL: The patient is well-developed and well-nourished female, in no apparent distress. HEENT: Eyes, pupils are equal and responsive to light and accommodation. Extraocular movements are intact. NECK: Supple without lymphadenopathy. CHEST: nasal canula; Lungs with coarse upper airway sounds without wheezes or rales. CARDIOVASCULAR: Regular rate. S1 and S2 normal without murmurs, rubs, or gallops. ABDOMEN: Soft, nontender, and nondistended. Positive bowel sounds. No evidence of hepatosplenomegaly. Currently, no rebound or guarding noted. EXTREMITIES: Negative for clubbing, cyanosis, or edema. RECTAL/GENITAL: Not performed. NEUROLOGIC: Cranial nerves II through XII are grossly intact without focal deficits. Assessment/Plan Assessment/Plan ASSESSMENT: This is an 79-year-old female. 1. Chest pain. 2. Fall injury. 3. Severe anemia. 4. Atrial fibrillation. 5. Polycythemia vera. 6. Hypertension. 7. Obstructive sleep apnea. 8. Coronary artery disease. 9. Hypercholesterolemia. 10. Congestive heart failure; [id number] 11. Right pleural hemothorax 12. Severe anemia 13. left pneumonia TREATMENT: 1. Chest pain. This may be secondary to fall injury. Initial troponin level was negative. Repeat troponin levels are pending. A Cardiology consultation has been obtained with Dr. Mainor Araujo. 2. Severe anemia. The patient has been typed and crossed for 2 units of packed RBCs. Transfuse when available. Severe anemia may be secondary to gastrointestinal hemorrhage, however, the patient denies melena or bright red blood per rectum. 3. Atrial fibrillation. As above, a Cardiology consultation has been obtained with Dr. Mainor Araujo. 4. Polycythemia vera. The patient is currently anemic. 5. Hypertension. Continue metoprolol as above. 6. Obstructive sleep apnea. 7. Coronary artery disease, status post myocardial infarction. As above, a Cardiology consultation has been obtained with Dr. Mainor Araujo. 8. Hypercholesteremia. 9. Congestive heart failure. 10. Pacemaker in situ. Pacemaker check is pending. 11. right thoracentesis pending 11. Discuss with patient regarding discharge planning, wants to go home, refused SNF. 12. CODE STATUS is full code. 13. Broad spectrum antibiotics with Rocephin IV. 14. Monitor cultures and laboratory. 15. DVT prophylaxis: SCD. 16. OOB to chair, PT Mobility 17. Dc Telemetry 18. S/P video assisted Thoracoscopic exploratory surgery 07/02/19; Thoracic surg=Dr. Malik 19. Right chest tube discontinued 07/07/19 20. S/P Transfusion 5 units PRBC 21. ABX=zosyn per ID=Roshan Uriostegui MD July 09, 2019 17:10
--- NOTE | 2019-07-09 19:20 | NUR ---
NURSE NOTES: Received pt and report from IRA Minaya. Observed pt resting in bed with both eyes open. Pt is A/Ox3. ekg monitor tech is in placed; pt is AV-pacing. IV site intact, asymptomatic, and patent. Pt is on 4L nasal cannula; O2 saturation at 98%. Bed is in the lowest position and locked. Call light and bedside table is within reach. No signs/symptoms of acute distress noted at this time. Will continue plan of care.
--- NOTE | 2019-07-09 19:24 | NUR ---
HAND-OFF: Report given to Radha/RN, Patient is in stable condition, Endorsed plan of care.
[2019-07-09 20:00] VITALS: BP 118/54
[2019-07-09] MEDS: Amiodarone 200mg tab ORAL SCH (21:09)
[2019-07-10] VITALS: BP 124/76
[2019-07-10 04:00] VITALS: BP 110/51
[2019-07-10] MEDS: Piperacillin/Tazobactam 3.375 GM in NS 110 ML IVPB SCH ×3 (05:46→21:40)
[2019-07-10 06:23] LABS: BASOPHILS % (AUTO) 1.8 % (0.0-2.0); EOSINOPHILS % (AUTO) 0.8 % (0.0-3.0); HEMATOCRIT 28.1 % (37.0-47.0); HEMOGLOBIN 9.4 G/DL (12.0-16.0); MEAN CORPUSCULAR VOLUME 91 FL (80-99); MONOCYTES % (AUTO) 2.7 % (1.0-10.0); NEUTROPHILS % (AUTO) 80.7 % (45.0-75.0); PLATELET COUNT 169 K/UL (150-450); RED BLOOD COUNT 3.09 M/UL (4.20-5.40); RED CELL DISTRIBUTION WIDTH 17.3 % (11.6-14.8); WHITE BLOOD COUNT 5.6 K/UL (4.8-10.8)
[2019-07-10 06:53] LABS: ANION GAP 8 mmol/L (5-15); BLOOD UREA NITROGEN 17 mg/dL (7-18); CALCIUM 8.4 MG/DL (8.5-10.1); CARBON DIOXIDE 30 MMOL/L (21-32); CHLORIDE 107 MMOL/L (98-107); CREATININE 0.8 MG/DL (0.55-1.30); POTASSIUM 3.4 MMOL/L (3.5-5.1); SODIUM 145 MMOL/L (136-145)
--- NOTE | 2019-07-10 07:30 | NUR ---
NURSE NOTES: Nurse report given by IRA Garcia. Patient's awake and laying in bed, HOB < 30, eyes open spontaneously, breathing regular and unlabored, on 4L NC, AO x3, flat affect. Bed low and locked, call light within reach, side rails x 3, bed alarm is armed. IV is saline locked, flushed, patent and asymptomatic. Will continue to monitor.
--- NOTE | 2019-07-10 07:30 | NUR ---
HAND-OFF: Report given to IRA Renae. Plan of care endorsed.
[2019-07-10 08:00] VITALS: BP 114/55
[2019-07-10] MEDS: Metoprolol Tartrate 50mg tab ORAL SCH ×2 (09:00→21:37)
[2019-07-10] MEDS: Digoxin 0.125mg tab ORAL SCH (10:16)
[2019-07-10] MEDS: Heparin 5000 units/ml inj SUBQ SCH ×2 (10:18→21:39)
--- NOTE | 2019-07-10 10:49 | NUR ---
CASE MANAGEMENT:REVIEW 07/10/19 SI: RT HEMOTHORAX S/P CHEST TUBE REMOVAL 07/08/19 COVID 19 NOT DETECTED 97.7 74 18 114/55 98% ON 4L/NC H/H-9.4/28.1 K-3.4 IS: IV ZOSYN Q8HRS IV LASIX Q12 DIGOXIN PO QD AMIODARONE PO QHS HEPARIN SQ Q12 LOPRESSOR PO Q12 : TELEMETRY STATUS DCP: FROM HOME PLAN: SECOND COVID FROM 07/07....PENDING RESULTED FAMILY IS NOT AGREEABLE TO SNF PLACEMENT TITRATE OXYGEN TOLERATED
[2019-07-10 12:00] VITALS: BP 117/59
--- NOTE | 2019-07-10 12:52 | Cardiac Electrophysiology PN ---
Assessment/Plan Assessment/Plan 1. Status post [employer] pacer implantation 2010 and generator change by me in 07/2018 with normal function. 2. PAF with RVR. Continue amiodarone 200 mg daily ,metoprolol 50 mg b.i.d. and Dig 0.125 po daily Off anticoagulation in view of severe anemia, needing blood transfusion. 3. Chest pain, felt to be musculoskeletal by Dr. Araujo. The patient was ruled out for myocardial infarction. EF on 06/26/2019 was 55% 4. Urinary tract infection. 5. Hypertension. Continue metoprolol at this time. 6. Polycythemia vera, 7. Recurrent falls. . 8. Severe pulmonary hypertension. PA pressure of 71. 9. Hemothorax. S/P VATS by Dr Malik, extubated DW RN Subjective Subjective Intermittently A or V pacing on tele. Alert on iv Abx Objective Last 24 Hour Vital Signs Date Time Temp Pulse Resp B/P (MAP) Pulse Ox O2 Delivery O2 Flow Rate FiO2 07/10/19 12:00 97.9 71 18 117/59 (78) 99 07/10/19 10:16 60 07/10/19 09:00 60 100/55 07/10/19 09:00 Nasal Cannula 4.0 Nasal Cannula 4.0 Nasal Cannula 4.0 07/10/19 08:00 97.7 74 18 114/55 (74) 98 07/10/19 08:00 60 07/10/19 07:31 96 Nasal Cannula 4.0 36 07/10/19 04:00 65 07/10/19 04:00 97.0 81 19 110/51 (70) 98 07/10/19 00:00 60 07/10/19 00:00 97.5 60 20 124/76 (92) 98 07/09/19 21:10 62 118/54 07/09/19 21:00 Nasal Cannula 4.0 Nasal Cannula 4.0 Nasal Cannula 4.0 07/09/19 20:14 96 Nasal Cannula 4.0 36 07/09/19 20:00 96.8 62 19 118/54 (75) 98 07/09/19 20:00 60 07/09/19 16:00 97.6 66 20 112/68 (83) 100 07/09/19 16:00 62 Intake and Output 07/09/19 07/10/19 19:00 07:00 Intake Total 347.0 ml 230 ml Output Total 600 ml Balance 347.0 ml -370 ml Intake Oral 237 ml 230 ml IV Total 110.0 ml Output Urine Total 600 ml # Voids 2 # Bowel Movements 2 2 Laboratory Tests Test 07/10/19 06:03 White Blood Count 5.6 K/UL (4.8-10.8) Red Blood Count 3.09 M/UL (4.20-5.40) L Hemoglobin 9.4 G/DL (12.0-16.0) L Hematocrit 28.1 % (37.0-47.0) L Mean Corpuscular Volume 91 FL (80-99) Mean Corpuscular Hemoglobin 30.3 PG (27.0-31.0) Mean Corpuscular Hemoglobin Concent 33.3 G/DL (32.0-36.0) Red Cell Distribution Width 17.3 % (11.6-14.8) H Platelet Count 169 K/UL (150-450) Mean Platelet Volume 8.6 FL (6.5-10.1) Neutrophils (%) (Auto) 80.7 % (45.0-75.0) H Lymphocytes (%) (Auto) 14.0 % (20.0-45.0) L Monocytes (%) (Auto) 2.7 % (1.0-10.0) Eosinophils (%) (Auto) 0.8 % (0.0-3.0) Basophils (%) (Auto) 1.8 % (0.0-2.0) Sodium Level 145 MMOL/L (136-145) Potassium Level 3.4 MMOL/L (3.5-5.1) L Chloride Level 107 MMOL/L (98-107) Carbon Dioxide Level 30 MMOL/L (21-32) Anion Gap 8 mmol/L (5-15) Blood Urea Nitrogen 17 mg/dL (7-18) Creatinine 0.8 MG/DL (0.55-1.30) Estimat Glomerular Filtration Rate > 60 mL/min (>60) Glucose Level 80 MG/DL (74-106) Calcium Level 8.4 MG/DL (8.5-10.1) L Objective HEAD AND NECK: No JVD LUNGS: Coarse rhonchi. Decreased BS on R with Chest tube draining CARDIOVASCULAR: Shows regular S1 and S2 with no gallop. ABDOMEN: Soft. EXTREMITIES: No pitting edema. SKIN: The pacemaker in the left subclavian intact. River Freitas MD July 10, 2019 12:52
--- NOTE | 2019-07-10 14:02 | Pulmonology Progress Note ---
Subjective ROS Limited/Unobtainable: No Interval Events: chest tube is out Constitutional: Reports: no symptoms Allergies: Coded Allergies: No Known Allergies (Unverified , 04/24/18) Objective Last 24 Hour Vital Signs Date Time Temp Pulse Resp B/P (MAP) Pulse Ox O2 Delivery O2 Flow Rate FiO2 07/10/19 12:00 97.9 71 18 117/59 (78) 99 07/10/19 10:16 60 07/10/19 09:00 60 100/55 07/10/19 09:00 Nasal Cannula 4.0 Nasal Cannula 4.0 Nasal Cannula 4.0 07/10/19 08:00 97.7 74 18 114/55 (74) 98 07/10/19 08:00 60 07/10/19 07:31 96 Nasal Cannula 4.0 36 07/10/19 04:00 65 07/10/19 04:00 97.0 81 19 110/51 (70) 98 07/10/19 00:00 60 07/10/19 00:00 97.5 60 20 124/76 (92) 98 07/09/19 21:10 62 118/54 07/09/19 21:00 Nasal Cannula 4.0 Nasal Cannula 4.0 Nasal Cannula 4.0 07/09/19 20:14 96 Nasal Cannula 4.0 36 07/09/19 20:00 96.8 62 19 118/54 (75) 98 07/09/19 20:00 60 07/09/19 16:00 97.6 66 20 112/68 (83) 100 07/09/19 16:00 62 Intake and Output 07/09/19 07/10/19 19:00 07:00 Intake Total 347.0 ml 230 ml Output Total 600 ml Balance 347.0 ml -370 ml Intake Oral 237 ml 230 ml IV Total 110.0 ml Output Urine Total 600 ml # Voids 2 # Bowel Movements 2 2 General Appearance: WD/WN, no acute distress, other - elderly female in NAD HEENT: normocephalic, atraumatic Respiratory: chest wall non-tender, rhonchi - left, rhonchi - right Cardiovascular: normal peripheral pulses, normal rate Abdomen: normal bowel sounds, soft, non tender Genitourinary: normal external genitalia Extremities: no cyanosis Skin: no rash, no ulcers Neurologic: normal mood/affect Musculoskeletal: normal muscle bulk Laboratory Tests 07/10/19 06:03: White Blood Count 5.6, Red Blood Count 3.09L, Hemoglobin 9.4L, Hematocrit 28.1L , Mean Corpuscular Volume 91, Mean Corpuscular Hemoglobin 30.3, Mean Corpuscular Hemoglobin Concent 33.3, Red Cell Distribution Width 17.3H, Platelet Count 169, Mean Platelet Volume 8.6, Neutrophils (%) (Auto) 80.7H, Lymphocytes (%) (Auto) 14.0L, Monocytes (%) (Auto) 2.7, Eosinophils (%) (Auto) 0.8, Basophils (%) (Auto) 1.8, Sodium Level 145, Potassium Level 3.4L, Chloride Level 107, Carbon Dioxide Level 30, Anion Gap 8, Blood Urea Nitrogen 17, Creatinine 0.8, Estimat Glomerular Filtration Rate > 60, Glucose Level 80, Calcium Level 8.4L Current Medications Medications (Trade) Dose Ordered Sig/Escobar Route PRN Reason Start Time Stop Time Status Last Admin Dose Admin Acetaminophen (Tylenol) 650 mg Q4H PRN ORAL T>100.5 07/08/19 18:15 08/07/19 18:14 Acetaminophen/ Hydrocodone Bitart ([place] 10/325) 1 tab Q4H PRN ORAL Severe Pain (Pain Scale 7-10) 07/08/19 18:15 07/15/19 18:14 Acetaminophen/ Hydrocodone Bitart ([place] 5/325) 1 tab Q4H PRN ORAL Moderate Pain (Pain Scale 4-6) 07/08/19 18:15 07/15/19 18:14 Albuterol/ Ipratropium (Albuterol/ Ipratropium) 3 ml Q4H PRN HHN sob 07/08/19 18:15 07/13/19 18:14 Amiodarone HCl (Cordarone) 200 mg QHS ORAL 07/08/19 21:00 09/30/19 20:59 07/09/19 21:09 Dextrose (Dextrose 50%) 25 ml Q30M PRN IV Hypoglycemia 07/08/19 18:30 09/20/19 18:59 Dextrose (Dextrose 50%) 50 ml Q30M PRN IV Hypoglycemia 07/08/19 18:30 09/20/19 18:59 Digoxin (Lanoxin) 0.125 mg DAILY ORAL 07/09/19 09:00 10/03/19 08:59 07/10/19 10:16 Furosemide (Lasix) 20 mg EVERY 12 HOURS IV 07/09/19 13:00 08/08/19 12:59 07/10/19 10:16 Heparin Sodium (Porcine) (Heparin 5000 units/ml) 5,000 units EVERY 12 HOURS SUBQ 07/08/19 21:00 08/19/19 20:59 07/10/19 10:18 Hydroxyzine HCl (Atarax) 25 mg Q8H PRN ORAL Itching 07/08/19 18:16 08/07/19 18:15 Lorazepam (Ativan 2mg/ml 1ml) 2 mg Q3H PRN IV For Anxiety 07/08/19 18:16 07/15/19 18:15 Metoprolol Tartrate (Lopressor) 50 mg EVERY 12 HOURS ORAL 07/08/19 21:00 09/30/19 20:59 07/09/19 21:10 Piperacillin Sod/ Tazobactam Sod 3.375 gm/Sodium Chloride 110 ml @ 27.5 mls/hr EVERY 8 HOURS IVPB 07/08/19 22:00 07/13/19 05:59 07/10/19 05:46 Assessment/Plan Problems: (1) Pulmonary edema (2) RLL pneumonia (3) Collapse of left lung Assessment & Plan: resolved (4) Thoracostomy tube in place Assessment & Plan: removed yesterday (5) Pleural effusion (6) Chronic anticoagulation (7) Ribs, multiple fractures (8) Atrial fibrillation (9) Pacemaker (10) COPD (chronic obstructive pulmonary disease) (11) KELVIN (obstructive sleep apnea) Assessment/Plan lasix bid for a few days, diuresing well, still 12 liters positive cxr reviewed: Extensive bilateral alveolar densities check BNP agian no new complains no short of breath, despite left collapse keep left chest elevated incentive spirometry chest PT only to left site afebrile, COVID negative times Roberto barbosa Mirali MD July 10, 2019 14:02
--- NOTE | 2019-07-10 15:27 | Surgery Progress Note ---
Surgery Progress Note Subjective Procedure Performed right tube thoracostomy removal Symptoms: improved, tolerating diet, passing flatus Objective Last 24 Hour Vital Signs Date Time Temp Pulse Resp B/P (MAP) Pulse Ox O2 Delivery O2 Flow Rate FiO2 07/10/19 12:00 97.9 71 18 117/59 (78) 99 07/10/19 10:16 60 07/10/19 09:00 60 100/55 07/10/19 09:00 Nasal Cannula 4.0 Nasal Cannula 4.0 Nasal Cannula 4.0 07/10/19 08:00 97.7 74 18 114/55 (74) 98 07/10/19 08:00 60 07/10/19 07:31 96 Nasal Cannula 4.0 36 07/10/19 04:00 65 07/10/19 04:00 97.0 81 19 110/51 (70) 98 07/10/19 00:00 60 07/10/19 00:00 97.5 60 20 124/76 (92) 98 07/09/19 21:10 62 118/54 07/09/19 21:00 Nasal Cannula 4.0 Nasal Cannula 4.0 Nasal Cannula 4.0 07/09/19 20:14 96 Nasal Cannula 4.0 36 07/09/19 20:00 96.8 62 19 118/54 (75) 98 07/09/19 20:00 60 07/09/19 16:00 97.6 66 20 112/68 (83) 100 07/09/19 16:00 62 I&O Intake and Output 07/09/19 07/10/19 19:00 07:00 Intake Total 347.0 ml 230 ml Output Total 600 ml Balance 347.0 ml -370 ml Intake Oral 237 ml 230 ml IV Total 110.0 ml Output Urine Total 600 ml # Voids 2 # Bowel Movements 2 2 Dressing: dry Wound: clean Cardiovascular: RSR Respiratory: clear, decreased breath sounds Abdomen: soft, non-tender, present bowel sounds Extremities: no edema, no tenderness, no cyanosis Laboratory Tests Test 07/10/19 06:03 White Blood Count 5.6 K/UL (4.8-10.8) Red Blood Count 3.09 M/UL (4.20-5.40) L Hemoglobin 9.4 G/DL (12.0-16.0) L Hematocrit 28.1 % (37.0-47.0) L Mean Corpuscular Volume 91 FL (80-99) Mean Corpuscular Hemoglobin 30.3 PG (27.0-31.0) Mean Corpuscular Hemoglobin Concent 33.3 G/DL (32.0-36.0) Red Cell Distribution Width 17.3 % (11.6-14.8) H Platelet Count 169 K/UL (150-450) Mean Platelet Volume 8.6 FL (6.5-10.1) Neutrophils (%) (Auto) 80.7 % (45.0-75.0) H Lymphocytes (%) (Auto) 14.0 % (20.0-45.0) L Monocytes (%) (Auto) 2.7 % (1.0-10.0) Eosinophils (%) (Auto) 0.8 % (0.0-3.0) Basophils (%) (Auto) 1.8 % (0.0-2.0) Sodium Level 145 MMOL/L (136-145) Potassium Level 3.4 MMOL/L (3.5-5.1) L Chloride Level 107 MMOL/L (98-107) Carbon Dioxide Level 30 MMOL/L (21-32) Anion Gap 8 mmol/L (5-15) Blood Urea Nitrogen 17 mg/dL (7-18) Creatinine 0.8 MG/DL (0.55-1.30) Estimat Glomerular Filtration Rate > 60 mL/min (>60) Glucose Level 80 MG/DL (74-106) Calcium Level 8.4 MG/DL (8.5-10.1) L Plan Problems: (1) Hematothorax Assessment & Plan: s/p VATS recovering okay for diet keep chest tube to suction AM CXR will monitor and remove tube when stable okay for chest tube to water seal cxr noted tube removed respiratory percussion and suction AM CXR Interim reexpansion of the left lung. There is considerable parenchymal disease throughout the left lung, however. Interim removal of previously demonstrated right chest tube. No pneumothorax. There is some pleural thickening Versus fluid at the right lung base. There is extensive right lung parenchymal interstitial and alveolar disease which appears increased from the previous study. The heart size is normal. Left chest pacemaker again demonstrated. Impression: Interim right chest tube removal. No evidence of pneumothorax Worsening bilateral parenchymal infiltrates versus edema Right lateral basilar pleural thickening versus fluid Errol Estrada July 10, 2019 15:27
[2019-07-10 16:00] VITALS: BP 117/60
--- NOTE | 2019-07-10 18:09 | Cardiology Progress Note ---
Assessment/Plan Assessment/Plan 1. Paroxysmal episodes of atrial fibrillation. 2. Sick sinus syndrome status post pacemaker implantation with generator replacement in July of 2018. 3. Profound anemia. 4. History of polycythemia. 5. Probable urinary tract infection. 6. Fall. 7. Reported history of polycythemia vera. 8. Sleep apnea history. 9. Rib fracture 10 hemothorax 11. Pulmonary htn 71 12. left lung collapse / opacifiction of left lung resolved 13. diarrhea 14. pulm infiltrate suspicion for covid 19 s/ vats nwo ct [id number] tele atrial sensed / paced v sensed cxr personally reviewed bialt infiltrates tele personally reviewed bp is ok now ef 55% d/w rn looks good covid resultl still pending d/w rn in isolation again pui bnp noted yest is on iv lasix bid Subjective Subjective back in droplet isolation beign rechecked for covid again remain in isoaltaion por rn jessi tima , has pain in the righ side of lilliam janna not much cough no diarrhea Objective Last 24 Hour Vital Signs Date Time Temp Pulse Resp B/P (MAP) Pulse Ox O2 Delivery O2 Flow Rate FiO2 07/10/19 16:00 97.9 78 18 117/60 (79) 100 07/10/19 12:00 60 07/10/19 12:00 97.9 71 18 117/59 (78) 99 07/10/19 10:16 60 07/10/19 09:00 60 100/55 07/10/19 09:00 Nasal Cannula 4.0 Nasal Cannula 4.0 Nasal Cannula 4.0 07/10/19 08:00 97.7 74 18 114/55 (74) 98 07/10/19 08:00 60 07/10/19 07:31 96 Nasal Cannula 4.0 36 07/10/19 04:00 65 07/10/19 04:00 97.0 81 19 110/51 (70) 98 07/10/19 00:00 60 07/10/19 00:00 97.5 60 20 124/76 (92) 98 07/09/19 21:10 62 118/54 07/09/19 21:00 Nasal Cannula 4.0 Nasal Cannula 4.0 Nasal Cannula 4.0 07/09/19 20:14 96 Nasal Cannula 4.0 36 07/09/19 20:00 96.8 62 19 118/54 (75) 98 07/09/19 20:00 60 General Appearance: no apparent distress - deferred as PUI in isolation Intake and Output 07/09/19 07/10/19 19:00 07:00 Intake Total 347.0 ml 230 ml Output Total 600 ml Balance 347.0 ml -370 ml Intake Oral 237 ml 230 ml IV Total 110.0 ml Output Urine Total 600 ml # Voids 2 # Bowel Movements 2 2 Laboratory Tests Test 07/10/19 06:03 White Blood Count 5.6 K/UL (4.8-10.8) Red Blood Count 3.09 M/UL (4.20-5.40) L Hemoglobin 9.4 G/DL (12.0-16.0) L Hematocrit 28.1 % (37.0-47.0) L Mean Corpuscular Volume 91 FL (80-99) Mean Corpuscular Hemoglobin 30.3 PG (27.0-31.0) Mean Corpuscular Hemoglobin Concent 33.3 G/DL (32.0-36.0) Red Cell Distribution Width 17.3 % (11.6-14.8) H Platelet Count 169 K/UL (150-450) Mean Platelet Volume 8.6 FL (6.5-10.1) Neutrophils (%) (Auto) 80.7 % (45.0-75.0) H Lymphocytes (%) (Auto) 14.0 % (20.0-45.0) L Monocytes (%) (Auto) 2.7 % (1.0-10.0) Eosinophils (%) (Auto) 0.8 % (0.0-3.0) Basophils (%) (Auto) 1.8 % (0.0-2.0) Sodium Level 145 MMOL/L (136-145) Potassium Level 3.4 MMOL/L (3.5-5.1) L Chloride Level 107 MMOL/L (98-107) Carbon Dioxide Level 30 MMOL/L (21-32) Anion Gap 8 mmol/L (5-15) Blood Urea Nitrogen 17 mg/dL (7-18) Creatinine 0.8 MG/DL (0.55-1.30) Estimat Glomerular Filtration Rate > 60 mL/min (>60) Glucose Level 80 MG/DL (74-106) Calcium Level 8.4 MG/DL (8.5-10.1) L Objective per dr joshi HEAD AND NECK: No JVD LUNGS: Coarse rhonchi. Decreased BS on R with Chest tube draining CARDIOVASCULAR: Shows regular S1 and S2 with no gallop. ABDOMEN: Soft. EXTREMITIES: No pitting edema. SKIN: The pacemaker in the left subclavian intac Mainor Araujo MD July 10, 2019 18:09
--- NOTE | 2019-07-10 18:22 | Internal Med Progress Note ---
Subjective Physician Name Antonio Adrian Attending Physician Antonio Adrian MD Current Medications Medications (Trade) Dose Ordered Sig/Escobar Route PRN Reason Start Time Stop Time Status Last Admin Dose Admin Acetaminophen (Tylenol) 650 mg Q4H PRN ORAL T>100.5 07/08/19 18:15 08/07/19 18:14 Acetaminophen/ Hydrocodone Bitart ([place] 10/325) 1 tab Q4H PRN ORAL Severe Pain (Pain Scale 7-10) 07/08/19 18:15 07/15/19 18:14 Acetaminophen/ Hydrocodone Bitart ([place] 5/325) 1 tab Q4H PRN ORAL Moderate Pain (Pain Scale 4-6) 07/08/19 18:15 07/15/19 18:14 Albuterol/ Ipratropium (Albuterol/ Ipratropium) 3 ml Q4H PRN HHN sob 07/08/19 18:15 07/13/19 18:14 Amiodarone HCl (Cordarone) 200 mg QHS ORAL 07/08/19 21:00 09/30/19 20:59 07/09/19 21:09 Dextrose (Dextrose 50%) 25 ml Q30M PRN IV Hypoglycemia 07/08/19 18:30 09/20/19 18:59 Dextrose (Dextrose 50%) 50 ml Q30M PRN IV Hypoglycemia 07/08/19 18:30 09/20/19 18:59 Digoxin (Lanoxin) 0.125 mg DAILY ORAL 07/09/19 09:00 10/03/19 08:59 07/10/19 10:16 Furosemide (Lasix) 20 mg EVERY 12 HOURS IV 07/09/19 13:00 08/08/19 12:59 07/10/19 10:16 Heparin Sodium (Porcine) (Heparin 5000 units/ml) 5,000 units EVERY 12 HOURS SUBQ 07/08/19 21:00 08/19/19 20:59 07/10/19 10:18 Hydroxyzine HCl (Atarax) 25 mg Q8H PRN ORAL Itching 07/08/19 18:16 08/07/19 18:15 Lorazepam (Ativan 2mg/ml 1ml) 2 mg Q3H PRN IV For Anxiety 07/08/19 18:16 07/15/19 18:15 Metoprolol Tartrate (Lopressor) 50 mg EVERY 12 HOURS ORAL 07/08/19 21:00 09/30/19 20:59 07/09/19 21:10 Piperacillin Sod/ Tazobactam Sod 3.375 gm/Sodium Chloride 110 ml @ 27.5 mls/hr EVERY 8 HOURS IVPB 07/08/19 22:00 07/13/19 05:59 07/10/19 14:17 Allergies: Coded Allergies: No Known Allergies (Unverified , 04/24/18) Subjective Awake, alert, responsive, Feeling "Good", less chest pain , Denies any SOB. Objective Last Vital Signs Date Time Temp Pulse Resp B/P (MAP) Pulse Ox O2 Delivery O2 Flow Rate FiO2 07/10/19 16:00 97.9 78 18 117/60 (79) 100 07/10/19 09:00 Nasal Cannula 4.0 Nasal Cannula 4.0 Nasal Cannula 4.0 07/10/19 07:31 36 Laboratory Tests Test 07/10/19 06:03 White Blood Count 5.6 K/UL (4.8-10.8) Red Blood Count 3.09 M/UL (4.20-5.40) L Hemoglobin 9.4 G/DL (12.0-16.0) L Hematocrit 28.1 % (37.0-47.0) L Mean Corpuscular Volume 91 FL (80-99) Mean Corpuscular Hemoglobin 30.3 PG (27.0-31.0) Mean Corpuscular Hemoglobin Concent 33.3 G/DL (32.0-36.0) Red Cell Distribution Width 17.3 % (11.6-14.8) H Platelet Count 169 K/UL (150-450) Mean Platelet Volume 8.6 FL (6.5-10.1) Neutrophils (%) (Auto) 80.7 % (45.0-75.0) H Lymphocytes (%) (Auto) 14.0 % (20.0-45.0) L Monocytes (%) (Auto) 2.7 % (1.0-10.0) Eosinophils (%) (Auto) 0.8 % (0.0-3.0) Basophils (%) (Auto) 1.8 % (0.0-2.0) Sodium Level 145 MMOL/L (136-145) Potassium Level 3.4 MMOL/L (3.5-5.1) L Chloride Level 107 MMOL/L (98-107) Carbon Dioxide Level 30 MMOL/L (21-32) Anion Gap 8 mmol/L (5-15) Blood Urea Nitrogen 17 mg/dL (7-18) Creatinine 0.8 MG/DL (0.55-1.30) Estimat Glomerular Filtration Rate > 60 mL/min (>60) Glucose Level 80 MG/DL (74-106) Calcium Level 8.4 MG/DL (8.5-10.1) L Intake and Output 07/09/19 07/10/19 19:00 07:00 Intake Total 347.0 ml 230 ml Output Total 600 ml Balance 347.0 ml -370 ml Intake Oral 237 ml 230 ml IV Total 110.0 ml Output Urine Total 600 ml # Voids 2 # Bowel Movements 2 2 Objective General: No acute distress, awake and alert HEENT: NCAT, sclera anicteric, PERRL, EOMI. Neck: Supple, no significant jugular venous distention, Lungs: fair inspiratory effort, decreased air at the bases, no Wheeze or Rales. Heart: Regular rate and rhythm, normal S1/S2, no murmurs, +PPM. Abdomen: soft, nontender, nondistended. Normoactive bowel sounds. / Rectal: Refused and deferred. Extremities: No Cyanosis , clubbing or edema. Neuro: A&O x 3, Able to move all extremities. Skin: warm, no rashes or lesions Psych: Mood intact. Assessment/Plan Assessment/Plan ASSESSMENT: This is an 79-year-old female. 1. Right side chest wall pain most likely due to the multiple ribs fracture. 2. Mechanical fall 3. Severe anemia. 4. Atrial fibrillation. 5. Polycythemia vera. 6. Hypertension. 7. Obstructive sleep apnea. 8. Coronary artery disease. 9. Hypercholesterolemia. 10. Congestive heart failure; GGI=[id number] 11. Sick sinus syndrome status post a pacemaker. 12. Hemopneumothorax s/p right side thoracoscopy (07/02/2019). TREATMENT: 1. Chest pain. This may be secondary to fall injury. Initial troponin level was negative. Repeat troponin levels are pending. A Cardiology consultation has been obtained with Dr. Mainor Araujo. 2. Severe anemia. The patient has been typed and crossed for 2 units of packed RBCs. 3. Atrial fibrillation. As above, a Cardiology consultation has been obtained with Dr. Mainor Araujo. 4. Polycythemia vera. 5. Hypertension. Continue metoprolol as above. 6. Obstructive sleep apnea. 7. Coronary artery disease, status post myocardial infarction. As above, a Cardiology consultation has been obtained with Dr. Mainor Araujo. 8. Hypercholesteremia. 9. Chronic Congestive heart failure. 10. Pacemaker in situ. 11. Discuss with patient regarding discharge planning. 12. CODE STATUS: Full code. 13. Abx: Zosyn IV. 14. Monitor cultures and laboratory. 15. DVT prophylaxis: SCD. 16. OOB to chair, PT Mobility 1st COVID test negative, 2nd one pending. Antonio Adrian MD July 10, 2019 18:22
--- NOTE | 2019-07-10 19:17 | Infectious Diseases Prog Note ---
Assessment/Plan Assessment/Plan Assessment: Low grade fever; intermittent- SP No leukocytosis -07/03 Bcx Neg -06/21 u/a wbc 15-20, nit neg, leuk+3; UCx <10 mixed urogenital contaminants Probable PNA- COVID19 neg x1 -07/07 CXR: Interim right chest tube removal. No evidence of pneumothorax. Worsening bilateral parenchymal infiltrates versus edema. Right lateral basilar pleural thickening versus fluid -07/05 CXR: . Slightly improved moderate left pleural effusion. Slightly improved left perihilar interstitial thickening and lower lung opacity. Minimally improved right interstitial thickening and perihilar and lower lobe opacities. Improving right chest wall emphysema. Stable right chest tube. -06/26 CXR: Pulmonary vascular congestion, similar to mildly increased from the prior exam. No significant change in the small right pleural effusion or subtle infiltrate in the right lung base. -06/25 SARS-COV2 PCR neg -06/23 CXR: Right basilar infiltrate with trace right effusion. s/p Mechanical fall Rib, abdominal pain- 2ry to R rib fractures and large R pleural effusion/ hemothorax ?Post-op pos-obstructive PNA -07/03 CXR: . Interval development of diffuse opacification of the left lung. This raises possibility of having developed a left mainstem bronchus obstruction with postobstructive atelectasis. Alternatively a very large left effusion or severe left-sided pneumonia could have similar appearance, although unlikely to have developed since the prior exam. -07/01 SP Flexible bronchoscopy. Right video-assisted thoracoscopic surgery. Intrapleural pneumolysis.Evacuation of right intrathoracic blood. Intercostal nerve block. --OR Findings: Minimal amount of mucopurulent secretion was lavaged and suctioned clear. Righ hemithorax: There was noted to be some adhesions There was noted to be no protrusion of any fractured ribs into the intrathoracic cavity as the entire parietal pleura appears to be intact. -- cx neg (aerobic and anaerobic) --AFB smear neg; cx p -06/25 Chest US: Small right pleural effusion, decreased compared to the prior exam. No significant pocket for thoracentesis. -06/22 Chest US: Positive for right pleural effusion -06/[address]: 1. 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 No acute intracranial pathology is detected. CT C/abd/p:No evidence of acute injury to the abdominal or pelvic viscera. Somewhat limited study due to motion artifact. Cholelithiasis. Acute posterior medial lower right rib fractures. Moderate to large right pleural effusion, possibly containing an element of the hemothorax. Cardiomegaly.ASCVD. No pneumothoraces. Acute on chronic anemia -08/06/18 sp EGD: Normal upper endoscopy, status post biopsy. -path: mild chronic gastritis, no H. pylori identified pAfib hx of rib fractures Sinus node dysfunction s/p PPM (batter exchange July 2018) s/p KELI GERD polycythemia vera HLD MDD anemia NSTEMI s/p normal cardiac catheterization 2019 HTN KELVIN dCHF Plan: -Continue empiric Zosyn #7/7-10 (abx d#15) -07/03 SP Ceftriaxone #9 -f/u cx -Monitor CBC/CMP, temperatures -aspiration precautions -Pulm, CT sx, cards f/u -COVID 19 neg x1; will send 2nd test as febrile, worsening CXR and O2 requirements. -CXR am Thank you for consulting [facility]. Will contiue to follow along with you. Discussed with RN Subjective Allergies: Coded Allergies: No Known Allergies (Unverified , 04/24/18) Subjective afebrile >48hrs on 4l NC no leukocytosis bcx neg covid pending Objective Vital Signs Last 24 Hour Vital Signs Date Time Temp Pulse Resp B/P (MAP) Pulse Ox O2 Delivery O2 Flow Rate FiO2 07/10/19 18:47 64 07/10/19 16:00 97.9 78 18 117/60 (79) 100 07/10/19 12:00 60 07/10/19 12:00 97.9 71 18 117/59 (78) 99 07/10/19 10:16 60 07/10/19 09:00 60 100/55 07/10/19 09:00 Nasal Cannula 4.0 Nasal Cannula 4.0 Nasal Cannula 4.0 07/10/19 08:00 97.7 74 18 114/55 (74) 98 07/10/19 08:00 60 07/10/19 07:31 96 Nasal Cannula 4.0 36 07/10/19 04:00 65 07/10/19 04:00 97.0 81 19 110/51 (70) 98 5/29/20 00:00 60 07/10/19 00:00 97.5 60 20 124/76 (92) 98 07/09/19 21:10 62 118/54 07/09/19 21:00 Nasal Cannula 4.0 Nasal Cannula 4.0 Nasal Cannula 4.0 07/09/19 20:14 96 Nasal Cannula 4.0 36 07/09/19 20:00 96.8 62 19 118/54 (75) 98 07/09/19 20:00 60 Height (Feet): 5 Height (Inches): 0.00 Weight (Pounds): 141 Objective General Appearance: no acute distress, other - elderly female in NAD HEENT: normocephalic, atraumatic, anicteric Respiratory: decreased breath sounds Cardiovascular: normal rate Abdomen: normal bowel sounds, soft, non tender Extremities: no edema Neurologic: abnormal gait - unsteady, alert, responsive Musculoskeletal: atrophy Laboratory Tests Test 07/10/19 06:03 White Blood Count 5.6 K/UL (4.8-10.8) Red Blood Count 3.09 M/UL (4.20-5.40) L Hemoglobin 9.4 G/DL (12.0-16.0) L Hematocrit 28.1 % (37.0-47.0) L Mean Corpuscular Volume 91 FL (80-99) Mean Corpuscular Hemoglobin 30.3 PG (27.0-31.0) Mean Corpuscular Hemoglobin Concent 33.3 G/DL (32.0-36.0) Red Cell Distribution Width 17.3 % (11.6-14.8) H Platelet Count 169 K/UL (150-450) Mean Platelet Volume 8.6 FL (6.5-10.1) Neutrophils (%) (Auto) 80.7 % (45.0-75.0) H Lymphocytes (%) (Auto) 14.0 % (20.0-45.0) L Monocytes (%) (Auto) 2.7 % (1.0-10.0) Eosinophils (%) (Auto) 0.8 % (0.0-3.0) Basophils (%) (Auto) 1.8 % (0.0-2.0) Sodium Level 145 MMOL/L (136-145) Potassium Level 3.4 MMOL/L (3.5-5.1) L Chloride Level 107 MMOL/L (98-107) Carbon Dioxide Level 30 MMOL/L (21-32) Anion Gap 8 mmol/L (5-15) Blood Urea Nitrogen 17 mg/dL (7-18) Creatinine 0.8 MG/DL (0.55-1.30) Estimat Glomerular Filtration Rate > 60 mL/min (>60) Glucose Level 80 MG/DL (74-106) Calcium Level 8.4 MG/DL (8.5-10.1) L Current Medications Medications (Trade) Dose Ordered Sig/Escobar Route PRN Reason Start Time Stop Time Status Last Admin Dose Admin Acetaminophen (Tylenol) 650 mg Q4H PRN ORAL T>100.5 07/08/19 18:15 08/07/19 18:14 Acetaminophen/ Hydrocodone Bitart ([place] 10/325) 1 tab Q4H PRN ORAL Severe Pain (Pain Scale 7-10) 07/08/19 18:15 07/15/19 18:14 Acetaminophen/ Hydrocodone Bitart ([place] 5/325) 1 tab Q4H PRN ORAL Moderate Pain (Pain Scale 4-6) 07/08/19 18:15 07/15/19 18:14 Albuterol/ Ipratropium (Albuterol/ Ipratropium) 3 ml Q4H PRN HHN sob 07/08/19 18:15 07/13/19 18:14 Amiodarone HCl (Cordarone) 200 mg QHS ORAL 07/08/19 21:00 09/30/19 20:59 07/09/19 21:09 Dextrose (Dextrose 50%) 25 ml Q30M PRN IV Hypoglycemia 07/08/19 18:30 09/20/19 18:59 Dextrose (Dextrose 50%) 50 ml Q30M PRN IV Hypoglycemia 07/08/19 18:30 09/20/19 18:59 Digoxin (Lanoxin) 0.125 mg DAILY ORAL 07/09/19 09:00 10/03/19 08:59 07/10/19 10:16 Furosemide (Lasix) 20 mg EVERY 12 HOURS IV 07/09/19 13:00 08/08/19 12:59 07/10/19 10:16 Heparin Sodium (Porcine) (Heparin 5000 units/ml) 5,000 units EVERY 12 HOURS SUBQ 07/08/19 21:00 08/19/19 20:59 07/10/19 10:18 Hydroxyzine HCl (Atarax) 25 mg Q8H PRN ORAL Itching 07/08/19 18:16 08/07/19 18:15 Lorazepam (Ativan 2mg/ml 1ml) 2 mg Q3H PRN IV For Anxiety 07/08/19 18:16 07/15/19 18:15 Metoprolol Tartrate (Lopressor) 50 mg EVERY 12 HOURS ORAL 07/08/19 21:00 09/30/19 20:59 07/09/19 21:10 Piperacillin Sod/ Tazobactam Sod 3.375 gm/Sodium Chloride 110 ml @ 27.5 mls/hr EVERY 8 HOURS IVPB 07/08/19 22:00 07/13/19 05:59 07/10/19 14:17 Alejandrina Arrieta M.D. July 10, 2019 19:17
--- NOTE | 2019-07-10 19:29 | NUR ---
HAND-OFF: Report given to IRA Patten. Patient's in stable condition, plan of care endorsed.
--- NOTE | 2019-07-10 19:30 | NUR ---
NURSE NOTES: Received report from IRA Fraser. Patient is alert and oriented x 3. Patient has oxygen @ 4 Lpm via nasal cannula saturating 95%. IV site is on Left hand g-24 and right wrist g-22 saline lock that is patent and intact. Patient is on regular, mechanical soft diet. monitoring specialist is on shows A-paced. Safety measures are in placed, bed in lowest and lock position, side rails up x 2. Bed alarm is on. Call light and bedside table within reach. Will continue plan of care.
[2019-07-10 20:00] VITALS: BP 110/64
[2019-07-10] MEDS: Amiodarone 200mg tab ORAL SCH (21:37)
[2019-07-11] VITALS: BP 104/56
[2019-07-11 04:00] VITALS: BP 112/72
[2019-07-11 06:01] LABS: BASOPHILS % (AUTO) 2.2 % (0.0-2.0); EOSINOPHILS % (AUTO) 1.2 % (0.0-3.0); HEMATOCRIT 27.5 % (37.0-47.0); HEMOGLOBIN 9.4 G/DL (12.0-16.0); MEAN CORPUSCULAR VOLUME 90 FL (80-99); MONOCYTES % (AUTO) 2.7 % (1.0-10.0); PLATELET COUNT 175 K/UL (150-450); RED BLOOD COUNT 3.06 M/UL (4.20-5.40); RED CELL DISTRIBUTION WIDTH 16.5 % (11.6-14.8)
[2019-07-11] MEDS: Piperacillin/Tazobactam 3.375 GM in NS 110 ML IVPB SCH ×3 (06:23→21:09)
[2019-07-11 06:28] LABS: ALANINE AMINOTRANSFERASE 9 U/L (12-78); ALBUMIN 1.9 G/DL (3.4-5.0); ALBUMIN/GLOBULIN RATIO 0.5 (1.0-2.7); ALKALINE PHOSPHATASE 63 U/L (46-116); ANION GAP 6 mmol/L (5-15); ASPARTATE AMINO TRANSFERASE 15 U/L (15-37); BILIRUBIN,TOTAL 0.6 MG/DL (0.2-1.0); BLOOD UREA NITROGEN 19 mg/dL (7-18); CALCIUM 8.1 MG/DL (8.5-10.1); CARBON DIOXIDE 32 MMOL/L (21-32); CHLORIDE 102 MMOL/L (98-107); CREATININE 0.8 MG/DL (0.55-1.30); POTASSIUM 3.2 MMOL/L (3.5-5.1); SODIUM 139 MMOL/L (136-145)
--- NOTE | 2019-07-11 06:58 | Pulmonology Progress Note ---
Subjective ROS Limited/Unobtainable: No Interval Events: chest tube is out Allergies: Coded Allergies: No Known Allergies (Unverified , 04/24/18) Subjective no fevers , no leukocytosis on O2 [address] was dc Objective Last 24 Hour Vital Signs Date Time Temp Pulse Resp B/P (MAP) Pulse Ox O2 Delivery O2 Flow Rate FiO2 07/11/19 04:00 73 07/11/19 04:00 97.9 67 20 112/72 (85) 95 07/11/19 00:00 60 07/11/19 00:00 97.7 62 18 104/56 (72) 99 07/10/19 21:37 68 110/72 07/10/19 21:00 Nasal Cannula 4.0 Nasal Cannula 4.0 Nasal Cannula 4.0 07/10/19 20:00 97.9 72 16 110/64 (79) 96 07/10/19 20:00 80 07/10/19 18:47 64 07/10/19 16:00 97.9 78 18 117/60 (79) 100 07/10/19 12:00 60 07/10/19 12:00 97.9 71 18 117/59 (78) 99 07/10/19 10:16 60 07/10/19 09:00 60 100/55 07/10/19 09:00 Nasal Cannula 4.0 Nasal Cannula 4.0 Nasal Cannula 4.0 07/10/19 08:00 97.7 74 18 114/55 (74) 98 07/10/19 08:00 60 07/10/19 07:31 96 Nasal Cannula 4.0 36 Intake and Output 07/10/19 07/11/19 19:00 07:00 Intake Total 600 ml Output Total 400 ml Balance 200 ml Intake Oral 600 ml Output Urine Total 400 ml # Voids 1 # Bowel Movements 2 Objective Condition: stable General: elderly female in NAD HEENT: atraumatic, O2 via NC Lungs: BS overall clear, dressing over the prior R sided CT insertion C/D/I Heart: HR/BP stable, tele V pacing Abdomen: soft, non-tender, active bowel sounds, Extremities: no edema Respiratory: rhonchi - left, rhonchi - right Laboratory Tests 07/11/19 05:30: White Blood Count 5.0, Red Blood Count 3.06L, Hemoglobin 9.4L, Hematocrit 27.5L , Mean Corpuscular Volume 90, Mean Corpuscular Hemoglobin 30.7, Mean Corpuscular Hemoglobin Concent 34.1, Red Cell Distribution Width 16.5H, Platelet Count 175, Mean Platelet Volume 10.2H, Neutrophils (%) (Auto) 78.0H, Lymphocytes (%) (Auto) 16.0L, Monocytes (%) (Auto) 2.7, Eosinophils (%) (Auto) 1.2, Basophils (%) (Auto) 2.2H, Sodium Level 139, Potassium Level 3.2L, Chloride Level 102, Carbon Dioxide Level 32, Anion Gap 6, Blood Urea Nitrogen 19H, Creatinine 0.8, Estimat Glomerular Filtration Rate > 60, Glucose Level 79, Calcium Level 8.1L, Total Bilirubin 0.6, Aspartate Amino Transf (AST/SGOT) 15, Alanine Aminotransferase (ALT/SGPT) 9L, Alkaline Phosphatase 63, Pro-B-Type Natriuretic Peptide 1929H, Total Protein 5.7L, Albumin 1.9L, Globulin 3.8, Albumin/Globulin Ratio 0.5L Current Medications Medications (Trade) Dose Ordered Sig/Escobar Route PRN Reason Start Time Stop Time Status Last Admin Dose Admin Acetaminophen (Tylenol) 650 mg Q4H PRN ORAL T>100.5 07/08/19 18:15 08/07/19 18:14 Acetaminophen/ Hydrocodone Bitart ([place] 10/325) 1 tab Q4H PRN ORAL Severe Pain (Pain Scale 7-10) 07/08/19 18:15 07/15/19 18:14 Acetaminophen/ Hydrocodone Bitart ([place] 5/325) 1 tab Q4H PRN ORAL Moderate Pain (Pain Scale 4-6) 07/08/19 18:15 07/15/19 18:14 Albuterol/ Ipratropium (Albuterol/ Ipratropium) 3 ml Q4H PRN HHN sob 07/08/19 18:15 07/13/19 18:14 Amiodarone HCl (Cordarone) 200 mg QHS ORAL 07/08/19 21:00 09/30/19 20:59 07/10/19 21:37 Dextrose (Dextrose 50%) 25 ml Q30M PRN IV Hypoglycemia 07/08/19 18:30 09/20/19 18:59 Dextrose (Dextrose 50%) 50 ml Q30M PRN IV Hypoglycemia 07/08/19 18:30 09/20/19 18:59 Digoxin (Lanoxin) 0.125 mg DAILY ORAL 07/09/19 09:00 10/03/19 08:59 07/10/19 10:16 Furosemide (Lasix) 20 mg EVERY 12 HOURS IV 07/09/19 13:00 08/08/19 12:59 07/10/19 21:36 Heparin Sodium (Porcine) (Heparin 5000 units/ml) 5,000 units EVERY 12 HOURS SUBQ 07/08/19 21:00 08/19/19 20:59 07/10/19 21:39 Hydroxyzine HCl (Atarax) 25 mg Q8H PRN ORAL Itching 07/08/19 18:16 08/07/19 18:15 Lorazepam (Ativan 2mg/ml 1ml) 2 mg Q3H PRN IV For Anxiety 07/08/19 18:16 07/15/19 18:15 Metoprolol Tartrate (Lopressor) 50 mg EVERY 12 HOURS ORAL 07/08/19 21:00 09/30/19 20:59 07/10/19 21:37 Piperacillin Sod/ Tazobactam Sod 3.375 gm/Sodium Chloride 110 ml @ 27.5 mls/hr EVERY 8 HOURS IVPB 07/08/19 22:00 07/13/19 05:59 07/11/19 06:23 Assessment/Plan Assessment/Plan ASSESSMENT s/p mechanical fall with acute multiple rib fractures Right pleural effusion , moderate to large with probable associated hemothorax Right hemothorax s/p flexible bronchoscopy, right video-assisted thoracoscopic surgery, intrapleural pneumolysis, evacuation of right intrathoracic blood, intercostal nerve block 07/01 Acute resp failure ( remained intubated after surgery), s/p extubation 07/02, now on O2 via NC Right sided chest tube , s/p removal Probably pneumonia Atelectasis, collapsed L lung COPD Suspected COVID 19 - not detected History of KELVIN PAF CHF with diastolic dysfunction SSS, status post pacemaker/interrogated, normal fx Profound anemia, s/p 3 u PRBC Hx of polycythemia vera Severe pulmonary HTN Hypokalemia PLAN OF CARE tele O2 titrate to keep sat above 90%, pulm toilet still on 4L o2 via NC CXR 07/[address]. Extensive bilateral alveolar densities are mostly unchanged. Cardio make and small effusions unchanged. The bony thorax appear unremarkable. No significant changes Venous Duplex BLE - place SCD if negative Chest tube was dc CT head - no acute IC pathology CT C/A/P noted ; 06/22 US chest noted, m to l R pleural effusion 06/25 US chest with Small right pleural effusion, decreased compared to the prior exam. No significant pocket for thoracentesis. SARS COV-2 by PCR 06/25 not detected , 07/07 result still pending abx as per ID, on Zosyn intra-oper cx NGTD, AFB smear NGT, BCX 07/03 NGTD off anticoagulation 2 to anemia; continue amiodarone and BB, s/p Dig x 1 per cardio, HR better, Hgb at baseline, no trend down; s/p prior transfusion cardio follows on Lasix, monitor volumes and cardiorenal parameters pro BNP trending down rate control with BB , Digoxin and Amiodarone ECHO with pEF and RVSP of 71 c/w severe pulm HTN replace K, check K and Mg in am pain management supportive care fall precaution case discussed and evaluated by supervising physician Cait Melchor NP July 11, 2019 06:58
--- NOTE | 2019-07-11 07:32 | NUR ---
HAND-OFF: Report given to IRA Varma. Patient is awake, with no complaints made at this time. Plan of care endorsed.
--- NOTE | 2019-07-11 07:46 | NUR ---
NURSE NOTES: Patient stable, AOx4 with no complaints at this time. No s/sx of pain or distress. RR even and unlabored, currently off NC and on RA. Side rails upx2, call light within reach, bed low and locked. IRA Patten endorsed one time dose of potassium. Will give to patient with her morning medications. Will continue to monitor.
[2019-07-11 08:00] VITALS: BP 91/51
[2019-07-11] MEDS: Digoxin 0.125mg tab ORAL SCH ×3 (08:57→09:31)
[2019-07-11] MEDS: Metoprolol Tartrate 50mg tab ORAL SCH ×2 (08:57→21:00)
[2019-07-11] MEDS: Heparin 5000 units/ml inj SUBQ SCH ×2 (08:58→21:07)
--- NOTE | 2019-07-11 09:30 | NUR ---
NURSE NOTES: Patient hypotensive. RN reassessed and also found BP to be 91/55. Dr. Adrian notified. Orders received.
--- NOTE | 2019-07-11 10:22 | Diagnostic Imaging Report ---
EXAM: XR Chest, 1 View CLINICAL HISTORY: DYSPNEA TECHNIQUE: Frontal view of the chest. COMPARISON: June,. FINDINGS: Borderline prominent cardiac silhouette. There is interval improvement in previously noted edema/failure and bilateral multifocal infiltrates. Small bilateral pleural effusions. Pacemaker device. Remainder little changed. IMPRESSION: Control, interval improvement in previously noted edema/failure and bilateral multifocal infiltrates.
[2019-07-11 12:00] VITALS: BP 92/53
[2019-07-11] MEDS ORDERED: NS 250 ML IVPB SCH (13:00)
--- NOTE | 2019-07-11 13:12 | Cardiology Progress Note ---
Assessment/Plan Assessment/Plan 1. Paroxysmal episodes of atrial fibrillation. 2. Sick sinus syndrome status post pacemaker implantation with generator replacement in July of 2018. 3. Profound anemia. 4. History of polycythemia. 5. Probable urinary tract infection. 6. Fall. 7. Reported history of polycythemia vera. 8. Sleep apnea history. 9. Rib fracture 10 hemothorax 11. Pulmonary htn 71 12. left lung collapse / opacifiction of left lung resolved 13. diarrhea 14. pulm infiltrate suspicion for covid 19 15. Hypotension s/ vats ct removed tele atrial sensed / paced v sensed cxr personally reviewed bialt infiltrates tele personally reviewed sinus bp is low likely due to diuretic will dc diuretic bolus ivf and start on ivf for a few hours then dc ef 55% d/w rn covid resultl still pending in isolation again pui cxr personally reviewed adn compared looks better than yest so some of lilliam "infiltrate" likey fluid overload related Subjective Subjective remain in isolation Patient stable, AOx4 with no complaints at this time. No s/sx of pain or distress. RR even and unlabored, currently off NC and on RA. Objective Last 24 Hour Vital Signs Date Time Temp Pulse Resp B/P (MAP) Pulse Ox O2 Delivery O2 Flow Rate FiO2 07/11/19 12:00 97.9 90 19 92/53 (66) 95 07/11/19 09:31 91 07/11/19 09:00 Nasal Cannula 2.0 Nasal Cannula 2.0 07/11/19 08:57 91 91/51 07/11/19 08:25 94 Room Air 21 07/11/19 08:00 97.7 91 18 91/51 (64) 95 07/11/19 08:00 89 07/11/19 04:00 73 07/11/19 04:00 97.9 67 20 112/72 (85) 95 07/11/19 00:00 60 07/11/19 00:00 97.7 62 18 104/56 (72) 99 07/10/19 21:37 68 110/72 07/10/19 21:00 Nasal Cannula 4.0 Nasal Cannula 4.0 Nasal Cannula 4.0 07/10/19 20:00 97.9 72 16 110/64 (79) 96 07/10/19 20:00 80 07/10/19 18:47 64 07/10/19 16:00 97.9 78 18 117/60 (79) 100 Intake and Output 07/10/19 07/11/19 19:00 07:00 Intake Total 600 ml Output Total 400 ml Balance 200 ml Intake Oral 600 ml Output Urine Total 400 ml # Voids 1 2 # Bowel Movements 2 Laboratory Tests Test 07/11/19 05:30 White Blood Count 5.0 K/UL (4.8-10.8) Red Blood Count 3.06 M/UL (4.20-5.40) L Hemoglobin 9.4 G/DL (12.0-16.0) L Hematocrit 27.5 % (37.0-47.0) L Mean Corpuscular Volume 90 FL (80-99) Mean Corpuscular Hemoglobin 30.7 PG (27.0-31.0) Mean Corpuscular Hemoglobin Concent 34.1 G/DL (32.0-36.0) Red Cell Distribution Width 16.5 % (11.6-14.8) H Platelet Count 175 K/UL (150-450) Mean Platelet Volume 10.2 FL (6.5-10.1) H Neutrophils (%) (Auto) 78.0 % (45.0-75.0) H Lymphocytes (%) (Auto) 16.0 % (20.0-45.0) L Monocytes (%) (Auto) 2.7 % (1.0-10.0) Eosinophils (%) (Auto) 1.2 % (0.0-3.0) Basophils (%) (Auto) 2.2 % (0.0-2.0) H Sodium Level 139 MMOL/L (136-145) Potassium Level 3.2 MMOL/L (3.5-5.1) L Chloride Level 102 MMOL/L (98-107) Carbon Dioxide Level 32 MMOL/L (21-32) Anion Gap 6 mmol/L (5-15) Blood Urea Nitrogen 19 mg/dL (7-18) H Creatinine 0.8 MG/DL (0.55-1.30) Estimat Glomerular Filtration Rate > 60 mL/min (>60) Glucose Level 79 MG/DL (74-106) Calcium Level 8.1 MG/DL (8.5-10.1) L Total Bilirubin 0.6 MG/DL (0.2-1.0) Aspartate Amino Transf (AST/SGOT) 15 U/L (15-37) Alanine Aminotransferase (ALT/SGPT) 9 U/L (12-78) L Alkaline Phosphatase 63 U/L (46-116) Pro-B-Type Natriuretic Peptide 1929 pg/mL (0-125) H Total Protein 5.7 G/DL (6.4-8.2) L Albumin 1.9 G/DL (3.4-5.0) L Globulin 3.8 g/dL Albumin/Globulin Ratio 0.5 (1.0-2.7) L Objective per pulm PA Heart: HR/BP stable, tele V pacing Abdomen: soft, non-tender, active bowel sounds, Extremities: no edema Respiratory: rhonchi - left, rhonchi - right Mainor Araujo MD July 11, 2019 13:12
--- NOTE | 2019-07-11 13:25 | Surgery Progress Note ---
Surgery Progress Note Subjective Procedure Performed right tube thoracostomy removal Symptoms: improved, tolerating diet, voiding well, passing flatus Objective Last 24 Hour Vital Signs Date Time Temp Pulse Resp B/P (MAP) Pulse Ox O2 Delivery O2 Flow Rate FiO2 07/11/19 12:00 97.9 90 19 92/53 (66) 95 07/11/19 09:31 91 07/11/19 09:00 Nasal Cannula 2.0 Nasal Cannula 2.0 07/11/19 08:57 91 91/51 07/11/19 08:25 94 Room Air 21 07/11/19 08:00 97.7 91 18 91/51 (64) 95 07/11/19 08:00 89 07/11/19 04:00 73 07/11/19 04:00 97.9 67 20 112/72 (85) 95 07/11/19 00:00 60 07/11/19 00:00 97.7 62 18 104/56 (72) 99 07/10/19 21:37 68 110/72 07/10/19 21:00 Nasal Cannula 4.0 Nasal Cannula 4.0 Nasal Cannula 4.0 07/10/19 20:00 97.9 72 16 110/64 (79) 96 07/10/19 20:00 80 07/10/19 18:47 64 07/10/19 16:00 97.9 78 18 117/60 (79) 100 I&O Intake and Output 07/10/19 07/11/19 19:00 07:00 Intake Total 600 ml Output Total 400 ml Balance 200 ml Intake Oral 600 ml Output Urine Total 400 ml # Voids 1 2 # Bowel Movements 2 Dressing: dry Wound: clean Cardiovascular: RSR Respiratory: decreased breath sounds Abdomen: soft, non-tender, present bowel sounds Extremities: no cyanosis Laboratory Tests Test 07/11/19 05:30 White Blood Count 5.0 K/UL (4.8-10.8) Red Blood Count 3.06 M/UL (4.20-5.40) L Hemoglobin 9.4 G/DL (12.0-16.0) L Hematocrit 27.5 % (37.0-47.0) L Mean Corpuscular Volume 90 FL (80-99) Mean Corpuscular Hemoglobin 30.7 PG (27.0-31.0) Mean Corpuscular Hemoglobin Concent 34.1 G/DL (32.0-36.0) Red Cell Distribution Width 16.5 % (11.6-14.8) H Platelet Count 175 K/UL (150-450) Mean Platelet Volume 10.2 FL (6.5-10.1) H Neutrophils (%) (Auto) 78.0 % (45.0-75.0) H Lymphocytes (%) (Auto) 16.0 % (20.0-45.0) L Monocytes (%) (Auto) 2.7 % (1.0-10.0) Eosinophils (%) (Auto) 1.2 % (0.0-3.0) Basophils (%) (Auto) 2.2 % (0.0-2.0) H Sodium Level 139 MMOL/L (136-145) Potassium Level 3.2 MMOL/L (3.5-5.1) L Chloride Level 102 MMOL/L (98-107) Carbon Dioxide Level 32 MMOL/L (21-32) Anion Gap 6 mmol/L (5-15) Blood Urea Nitrogen 19 mg/dL (7-18) H Creatinine 0.8 MG/DL (0.55-1.30) Estimat Glomerular Filtration Rate > 60 mL/min (>60) Glucose Level 79 MG/DL (74-106) Calcium Level 8.1 MG/DL (8.5-10.1) L Total Bilirubin 0.6 MG/DL (0.2-1.0) Aspartate Amino Transf (AST/SGOT) 15 U/L (15-37) Alanine Aminotransferase (ALT/SGPT) 9 U/L (12-78) L Alkaline Phosphatase 63 U/L (46-116) Pro-B-Type Natriuretic Peptide 1929 pg/mL (0-125) H Total Protein 5.7 G/DL (6.4-8.2) L Albumin 1.9 G/DL (3.4-5.0) L Globulin 3.8 g/dL Albumin/Globulin Ratio 0.5 (1.0-2.7) L Plan Problems: (1) Hematothorax Assessment & Plan: s/p VATS recovering okay for diet keep chest tube to suction AM CXR will monitor and remove tube when stable okay for chest tube to water seal cxr noted tube removed respiratory percussion and suction AM CXR Interim reexpansion of the left lung. There is considerable parenchymal disease throughout the left lung, however. Interim removal of previously demonstrated right chest tube. No pneumothorax. There is some pleural thickening Versus fluid at the right lung base. There is extensive right lung parenchymal interstitial and alveolar disease which appears increased from the previous study. The heart size is normal. Left chest pacemaker again demonstrated. Impression: Interim right chest tube removal. No evidence of pneumothorax Worsening bilateral parenchymal infiltrates versus edema Right lateral basilar pleural thickening versus fluid Errol Estrada July 11, 2019 13:25
--- NOTE | 2019-07-11 13:41 | Internal Med Progress Note ---
Subjective Date of Service: July 11, 2019 Physician Name GraceRoshan Attending Physician Antonio Adrian MD Current Medications Medications (Trade) Dose Ordered Sig/Escobar Route PRN Reason Start Time Stop Time Status Last Admin Dose Admin Acetaminophen (Tylenol) 650 mg Q4H PRN ORAL T>100.5 07/08/19 18:15 08/07/19 18:14 Acetaminophen/ Hydrocodone Bitart ([place] 10/325) 1 tab Q4H PRN ORAL Severe Pain (Pain Scale 7-10) 07/08/19 18:15 07/15/19 18:14 Acetaminophen/ Hydrocodone Bitart ([place] 5/325) 1 tab Q4H PRN ORAL Moderate Pain (Pain Scale 4-6) 07/08/19 18:15 07/15/19 18:14 Albuterol/ Ipratropium (Albuterol/ Ipratropium) 3 ml Q4H PRN HHN sob 07/08/19 18:15 07/13/19 18:14 Amiodarone HCl (Cordarone) 200 mg QHS ORAL 07/08/19 21:00 09/30/19 20:59 07/10/19 21:37 Dextrose (Dextrose 50%) 25 ml Q30M PRN IV Hypoglycemia 07/08/19 18:30 09/20/19 18:59 Dextrose (Dextrose 50%) 50 ml Q30M PRN IV Hypoglycemia 07/08/19 18:30 09/20/19 18:59 Digoxin (Lanoxin) 0.125 mg DAILY ORAL 07/09/19 09:00 10/03/19 08:59 07/11/19 09:31 Heparin Sodium (Porcine) (Heparin 5000 units/ml) 5,000 units EVERY 12 HOURS SUBQ 07/08/19 21:00 08/19/19 20:59 07/11/19 08:58 Hydroxyzine HCl (Atarax) 25 mg Q8H PRN ORAL Itching 07/08/19 18:16 08/07/19 18:15 Lorazepam (Ativan 2mg/ml 1ml) 2 mg Q3H PRN IV For Anxiety 07/08/19 18:16 07/15/19 18:15 Metoprolol Tartrate (Lopressor) 50 mg EVERY 12 HOURS ORAL 07/08/19 21:00 09/30/19 20:59 07/10/19 21:37 Piperacillin Sod/ Tazobactam Sod 3.375 gm/Sodium Chloride 110 ml @ 27.5 mls/hr EVERY 8 HOURS IVPB 07/08/19 22:00 07/13/19 05:59 07/11/19 06:23 Sodium Chloride 250 ml @ 999 mls/hr ONCE IVPB 07/11/19 13:00 07/11/19 14:00 Sodium Chloride 1,000 ml @ 75 mls/hr [id number] IV 07/11/19 13:30 07/12/19 13:29 Allergies: Coded Allergies: No Known Allergies (Unverified , 04/24/18) ROS Limited/Unobtainable: No Constitutional: Reports: no symptoms HEENT: Reports: no symptoms Cardiovascular: Reports: no symptoms Respiratory: Reports: no symptoms Gastrointestinal/Abdominal: Reports: no symptoms Genitourinary: Reports: no symptoms Neurologic/Psychiatric: Reports: no symptoms Subjective 79 YO F admitted with atypical chest pain. Now severe anemia and acute congestive heart failure. Cover for Int Med-Dr Adrian. S/P video assisted thoracoscopic exploratory surgery Th07/02/19. Tele Objective Last Vital Signs Date Time Temp Pulse Resp B/P (MAP) Pulse Ox O2 Delivery O2 Flow Rate FiO2 07/11/19 12:00 97.9 90 19 92/53 (66) 95 07/11/19 09:00 Nasal Cannula 2.0 Nasal Cannula 2.0 07/11/19 08:25 21 Laboratory Tests Test 07/11/19 05:30 White Blood Count 5.0 K/UL (4.8-10.8) Red Blood Count 3.06 M/UL (4.20-5.40) L Hemoglobin 9.4 G/DL (12.0-16.0) L Hematocrit 27.5 % (37.0-47.0) L Mean Corpuscular Volume 90 FL (80-99) Mean Corpuscular Hemoglobin 30.7 PG (27.0-31.0) Mean Corpuscular Hemoglobin Concent 34.1 G/DL (32.0-36.0) Red Cell Distribution Width 16.5 % (11.6-14.8) H Platelet Count 175 K/UL (150-450) Mean Platelet Volume 10.2 FL (6.5-10.1) H Neutrophils (%) (Auto) 78.0 % (45.0-75.0) H Lymphocytes (%) (Auto) 16.0 % (20.0-45.0) L Monocytes (%) (Auto) 2.7 % (1.0-10.0) Eosinophils (%) (Auto) 1.2 % (0.0-3.0) Basophils (%) (Auto) 2.2 % (0.0-2.0) H Sodium Level 139 MMOL/L (136-145) Potassium Level 3.2 MMOL/L (3.5-5.1) L Chloride Level 102 MMOL/L (98-107) Carbon Dioxide Level 32 MMOL/L (21-32) Anion Gap 6 mmol/L (5-15) Blood Urea Nitrogen 19 mg/dL (7-18) H Creatinine 0.8 MG/DL (0.55-1.30) Estimat Glomerular Filtration Rate > 60 mL/min (>60) Glucose Level 79 MG/DL (74-106) Calcium Level 8.1 MG/DL (8.5-10.1) L Total Bilirubin 0.6 MG/DL (0.2-1.0) Aspartate Amino Transf (AST/SGOT) 15 U/L (15-37) Alanine Aminotransferase (ALT/SGPT) 9 U/L (12-78) L Alkaline Phosphatase 63 U/L (46-116) Pro-B-Type Natriuretic Peptide 1929 pg/mL (0-125) H Total Protein 5.7 G/DL (6.4-8.2) L Albumin 1.9 G/DL (3.4-5.0) L Globulin 3.8 g/dL Albumin/Globulin Ratio 0.5 (1.0-2.7) L Intake and Output 07/10/19 07/11/19 19:00 07:00 Intake Total 600 ml Output Total 400 ml Balance 200 ml Intake Oral 600 ml Output Urine Total 400 ml # Voids 1 2 # Bowel Movements 2 Objective PHYSICAL EXAMINATION: GENERAL: The patient is well-developed and well-nourished female, in no apparent distress. HEENT: Eyes, pupils are equal and responsive to light and accommodation. Extraocular movements are intact. NECK: Supple without lymphadenopathy. CHEST: nasal canula; Lungs with coarse upper airway sounds without wheezes or rales. CARDIOVASCULAR: Regular rate. S1 and S2 normal without murmurs, rubs, or gallops. ABDOMEN: Soft, nontender, and nondistended. Positive bowel sounds. No evidence of hepatosplenomegaly. Currently, no rebound or guarding noted. EXTREMITIES: Negative for clubbing, cyanosis, or edema. RECTAL/GENITAL: Not performed. NEUROLOGIC: Cranial nerves II through XII are grossly intact without focal deficits. Assessment/Plan Assessment/Plan ASSESSMENT: This is an 79-year-old female. 1. Chest pain. 2. Fall injury. 3. Severe anemia. 4. Atrial fibrillation. 5. Polycythemia vera. 6. Hypertension. 7. Obstructive sleep apnea. 8. Coronary artery disease. 9. Hypercholesterolemia. 10. Congestive heart failure; KOP=[id number] 11. Right pleural hemothorax 12. Severe anemia 13. left pneumonia TREATMENT: 1. Chest pain. This may be secondary to fall injury. Initial troponin level was negative. Repeat troponin levels are pending. A Cardiology consultation has been obtained with Dr. Mainor Araujo. 2. Atrial fibrillation. As above, a Cardiology consultation has been obtained with Dr. Mainor Araujo. 3. Polycythemia vera. The patient is currently anemic. 4. Hypertension. Continue metoprolol as above. 5. Obstructive sleep apnea. 6. Coronary artery disease, status post myocardial infarction. As above, a Cardiology consultation has been obtained with Dr. Mainor Araujo. 7. Hypercholesteremia. 8. Congestive heart failure. 9. Pacemaker in situ. Pacemaker check is pending. 10. right thoracentesis pending 11. Discuss with patient regarding discharge planning, wants to go home, refused SNF. 12. CODE STATUS is full code. 13. Broad spectrum antibiotics with Rocephin IV. 14. Monitor cultures and laboratory. 15. DVT prophylaxis: SCD. 16. OOB to chair, PT Mobility 17. Dc Telemetry 18. S/P video assisted Thoracoscopic exploratory surgery 07/02/19; Thoracic surg=Dr. Malik 19. Right chest tube discontinued 07/07/19 20. S/P Transfusion 5 units PRBC 21. ABX=zosyn per ID=Roshan Uriostegui MD July 11, 2019 13:41
[2019-07-11 16:00] VITALS: BP 96/63
--- NOTE | 2019-07-11 19:18 | NUR ---
HAND-OFF: Report given to Earline Musa RN. Patient stable. Plan of care endorsed.
--- NOTE | 2019-07-11 19:35 | NUR ---
NURSE NOTES: Received report from IRA Varma. Patient is alert and oriented x 3. Patient has oxygen @ 2 Lpm via nasal cannula saturating 95%. IV site is on Left hand g-24 and right wrist g-22 saline lock that is patent and intact. Patient is on regular, mechanical soft diet, + ensure three times a day. surveillance system monitor is on shows Atrial fibrillation. Patient is incontinent x 2, pure wick is in placed. Safety measures are in placed, bed in lowest and lock position, side rails up x 2. Bed alarm is on. Call light and bedside table within reach. Will continue plan of care.
[2019-07-11 20:00] VITALS: BP 98/61
[2019-07-11] MEDS: Amiodarone 200mg tab ORAL SCH (21:07)
--- NOTE | 2019-07-11 22:10 | NUR ---
NURSE NOTES: Result from 2nd covid swab came back and it's negative. Called Dr. Arrieta and left a message. Awaiting for call back.
[2019-07-12] VITALS: BP 104/84
[2019-07-12 04:00] VITALS: BP 106/70
[2019-07-12 05:51] LABS: BASOPHILS % (AUTO) 1.9 % (0.0-2.0); EOSINOPHILS % (AUTO) 0.9 % (0.0-3.0); HEMATOCRIT 26.7 % (37.0-47.0); LYMPHOCYTES % (AUTO) 14.9 % (20.0-45.0); MEAN CORPUSCULAR VOLUME 90 FL (80-99); NEUTROPHILS % (AUTO) 79.3 % (45.0-75.0); PLATELET COUNT 180 K/UL (150-450); RED BLOOD COUNT 2.96 M/UL (4.20-5.40); RED CELL DISTRIBUTION WIDTH 16.5 % (11.6-14.8); WHITE BLOOD COUNT 5.2 K/UL (4.8-10.8)
[2019-07-12] MEDS: Piperacillin/Tazobactam 3.375 GM in NS 110 ML IVPB SCH ×3 (06:04→22:12)
[2019-07-12 06:55] LABS: ANION GAP 5 mmol/L (5-15); BLOOD UREA NITROGEN 20 mg/dL (7-18); CALCIUM 7.9 MG/DL (8.5-10.1); CARBON DIOXIDE 33 MMOL/L (21-32); CHLORIDE 107 MMOL/L (98-107); CREATININE 0.8 MG/DL (0.55-1.30); POTASSIUM 3.1 MMOL/L (3.5-5.1); SODIUM 145 MMOL/L (136-145)
--- NOTE | 2019-07-12 07:19 | Cardiac Electrophysiology PN ---
Assessment/Plan Assessment/Plan 1. Status post [employer] pacer implantation 2010 and generator change by me in 07/2018 with normal function. 2. PAF with RVR. Continue amiodarone 200 mg daily ,metoprolol 50 mg b.i.d. and Dig 0.125 po daily Off anticoagulation in view of severe anemia, needing blood transfusion. 3. Chest pain, felt to be musculoskeletal by Dr. Araujo. The patient was ruled out for myocardial infarction. EF on 06/26/2019 was 55% 4. Urinary tract infection. 5. Hypertension. Continue metoprolol at this time. 6. Polycythemia vera, 7. Recurrent falls. . 8. Severe pulmonary hypertension. PA pressure of 71. 9. Hemothorax. S/P VATS by Dr Malik. Chest tube removed DW RN Subjective Subjective Intermittently A or V pacing on tele. Covid already negative off isolation Objective Last 24 Hour Vital Signs Date Time Temp Pulse Resp B/P (MAP) Pulse Ox O2 Delivery O2 Flow Rate FiO2 07/12/19 04:00 65 07/12/19 04:00 97.7 75 16 106/70 (82) 95 07/12/19 00:00 65 07/12/19 00:00 98.6 80 16 104/84 (91) 94 07/11/19 21:00 98/61 07/11/19 21:00 Nasal Cannula 2.0 Nasal Cannula 2.0 07/11/19 20:00 98.1 74 16 98/61 (73) 95 07/11/19 20:00 76 07/11/19 19:39 95 Room Air 21 07/11/19 16:00 78 07/11/19 16:00 96.8 87 18 96/63 (74) 97 07/11/19 12:00 97.9 90 19 92/53 (66) 95 07/11/19 12:00 89 07/11/19 09:31 91 07/11/19 09:00 Nasal Cannula 2.0 Nasal Cannula 2.0 07/11/19 08:57 91 91/51 07/11/19 08:25 94 Room Air 21 07/11/19 08:00 97.7 91 18 91/51 (64) 95 07/11/19 08:00 89 Intake and Output 07/11/19 07/12/19 19:00 07:00 Intake Total 1470.0 ml 525 ml Output Total 0 ml Balance 1470.0 ml 525 ml Intake Oral 360 ml IV Total 1110.0 ml 525 ml Stool Total 0 ml # Voids 3 2 # Bowel Movements 3 Laboratory Tests Test 07/12/19 05:30 White Blood Count 5.2 K/UL (4.8-10.8) Red Blood Count 2.96 M/UL (4.20-5.40) L Hemoglobin 9.0 G/DL (12.0-16.0) L Hematocrit 26.7 % (37.0-47.0) L Mean Corpuscular Volume 90 FL (80-99) Mean Corpuscular Hemoglobin 30.6 PG (27.0-31.0) Mean Corpuscular Hemoglobin Concent 33.9 G/DL (32.0-36.0) Red Cell Distribution Width 16.5 % (11.6-14.8) H Platelet Count 180 K/UL (150-450) Mean Platelet Volume 9.0 FL (6.5-10.1) Neutrophils (%) (Auto) 79.3 % (45.0-75.0) H Lymphocytes (%) (Auto) 14.9 % (20.0-45.0) L Monocytes (%) (Auto) 3.0 % (1.0-10.0) Eosinophils (%) (Auto) 0.9 % (0.0-3.0) Basophils (%) (Auto) 1.9 % (0.0-2.0) Sodium Level 145 MMOL/L (136-145) Potassium Level 3.1 MMOL/L (3.5-5.1) L Chloride Level 107 MMOL/L (98-107) Carbon Dioxide Level 33 MMOL/L (21-32) H Anion Gap 5 mmol/L (5-15) Blood Urea Nitrogen 20 mg/dL (7-18) H Creatinine 0.8 MG/DL (0.55-1.30) Estimat Glomerular Filtration Rate > 60 mL/min (>60) Glucose Level 87 MG/DL (74-106) Calcium Level 7.9 MG/DL (8.5-10.1) L Magnesium Level 1.7 MG/DL (1.8-2.4) L Microbiology Date/Time Source Procedure Growth Status 07/09/19 09:15 Nasopharynx Coronavirus COVID-19 PCR ([facility]) - Final Complete Objective HEAD AND NECK: No JVD LUNGS: Coarse rhonchi. Decreased BS on R CARDIOVASCULAR: Shows regular S1 and S2 with no gallop. ABDOMEN: Soft. EXTREMITIES: No pitting edema. SKIN: The pacemaker in the left subclavian intact. River Freitas MD July 12, 2019 07:19
--- NOTE | 2019-07-12 07:20 | Pulmonology Progress Note ---
Subjective ROS Limited/Unobtainable: No Interval Events: chest tube is out Allergies: Coded Allergies: No Known Allergies (Unverified , 04/24/18) Subjective no fevers , no leukocytosis on O2 [address] was dc K-3.1 Mg 1.7 Objective Last 24 Hour Vital Signs Date Time Temp Pulse Resp B/P (MAP) Pulse Ox O2 Delivery O2 Flow Rate FiO2 07/12/19 04:00 65 07/12/19 04:00 97.7 75 16 106/70 (82) 95 07/12/19 00:00 65 07/12/19 00:00 98.6 80 16 104/84 (91) 94 07/11/19 21:00 98/61 07/11/19 21:00 Nasal Cannula 2.0 Nasal Cannula 2.0 07/11/19 20:00 98.1 74 16 98/61 (73) 95 07/11/19 20:00 76 07/11/19 19:39 95 Room Air 21 07/11/19 16:00 78 07/11/19 16:00 96.8 87 18 96/63 (74) 97 07/11/19 12:00 97.9 90 19 92/53 (66) 95 07/11/19 12:00 89 07/11/19 09:31 91 07/11/19 09:00 Nasal Cannula 2.0 Nasal Cannula 2.0 07/11/19 08:57 91 91/51 07/11/19 08:25 94 Room Air 21 07/11/19 08:00 97.7 91 18 91/51 (64) 95 07/11/19 08:00 89 Intake and Output 07/11/19 07/12/19 19:00 07:00 Intake Total 1470.0 ml 525 ml Output Total 0 ml Balance 1470.0 ml 525 ml Intake Oral 360 ml IV Total 1110.0 ml 525 ml Stool Total 0 ml # Voids 3 2 # Bowel Movements 3 Objective Condition: stable General: elderly female in NAD HEENT: atraumatic, O2 via NC Lungs: BS overall clear, dressing over the prior R sided CT insertion C/D/I Heart: HR/BP stable, tele V pacing Abdomen: soft, non-tender, active bowel sounds, Extremities: no edema Respiratory: rhonchi - left, rhonchi - right Microbiology Date/Time Source Procedure Growth Status 07/09/19 09:15 Nasopharynx Coronavirus COVID-19 PCR ([facility]) - Final Complete Laboratory Tests 07/12/19 05:30: White Blood Count 5.2, Red Blood Count 2.96L, Hemoglobin 9.0L, Hematocrit 26.7L , Mean Corpuscular Volume 90, Mean Corpuscular Hemoglobin 30.6, Mean Corpuscular Hemoglobin Concent 33.9, Red Cell Distribution Width 16.5H, Platelet Count 180, Mean Platelet Volume 9.0, Neutrophils (%) (Auto) 79.3H, Lymphocytes (%) (Auto) 14.9L, Monocytes (%) (Auto) 3.0, Eosinophils (%) (Auto) 0.9, Basophils (%) (Auto) 1.9, Sodium Level 145, Potassium Level 3.1L, Chloride Level 107, Carbon Dioxide Level 33H, Anion Gap 5, Blood Urea Nitrogen 20H, Creatinine 0.8, Estimat Glomerular Filtration Rate > 60, Glucose Level 87, Calcium Level 7.9L, Magnesium Level 1.7L Current Medications Medications (Trade) Dose Ordered Sig/Escobar Route PRN Reason Start Time Stop Time Status Last Admin Dose Admin Acetaminophen (Tylenol) 650 mg Q4H PRN ORAL T>100.5 07/08/19 18:15 08/07/19 18:14 Acetaminophen/ Hydrocodone Bitart ([place] 10/325) 1 tab Q4H PRN ORAL Severe Pain (Pain Scale 7-10) 07/08/19 18:15 07/15/19 18:14 Acetaminophen/ Hydrocodone Bitart ([place] 5/325) 1 tab Q4H PRN ORAL Moderate Pain (Pain Scale 4-6) 07/08/19 18:15 07/15/19 18:14 Albuterol/ Ipratropium (Albuterol/ Ipratropium) 3 ml Q4H PRN HHN sob 07/08/19 18:15 07/13/19 18:14 Amiodarone HCl (Cordarone) 200 mg QHS ORAL 07/08/19 21:00 09/30/19 20:59 07/11/19 21:07 Dextrose (Dextrose 50%) 25 ml Q30M PRN IV Hypoglycemia 07/08/19 18:30 09/20/19 18:59 Dextrose (Dextrose 50%) 50 ml Q30M PRN IV Hypoglycemia 07/08/19 18:30 09/20/19 18:59 Digoxin (Lanoxin) 0.125 mg DAILY ORAL 07/09/19 09:00 10/03/19 08:59 07/11/19 09:31 Heparin Sodium (Porcine) (Heparin 5000 units/ml) 5,000 units EVERY 12 HOURS SUBQ 07/08/19 21:00 08/19/19 20:59 07/11/19 21:07 Hydroxyzine HCl (Atarax) 25 mg Q8H PRN ORAL Itching 07/08/19 18:16 08/07/19 18:15 Lorazepam (Ativan 2mg/ml 1ml) 2 mg Q3H PRN IV For Anxiety 07/08/19 18:16 07/15/19 18:15 Metoprolol Tartrate (Lopressor) 50 mg EVERY 12 HOURS ORAL 07/08/19 21:00 09/30/19 20:59 07/10/19 21:37 Piperacillin Sod/ Tazobactam Sod 3.375 gm/Sodium Chloride 110 ml @ 27.5 mls/hr EVERY 8 HOURS IVPB 07/08/19 22:00 07/13/19 05:59 07/12/19 06:04 Sodium Chloride 1,000 ml @ 75 mls/hr [id number] IV 07/11/19 13:30 07/12/19 13:29 07/12/19 01:37 Assessment/Plan Assessment/Plan ASSESSMENT s/p mechanical fall with acute multiple rib fractures Right pleural effusion , moderate to large with probable associated hemothorax Right hemothorax s/p flexible bronchoscopy, right video-assisted thoracoscopic surgery, intrapleural pneumolysis, evacuation of right intrathoracic blood, intercostal nerve block 07/01 Acute resp failure ( remained intubated after surgery), s/p extubation 07/02, now on O2 via NC Right sided chest tube , s/p removal Probably pneumonia Atelectasis, collapsed L lung COPD Suspected COVID 19 - not detected History of KELVIN PAF CHF with diastolic dysfunction SSS, status post pacemaker/interrogated, normal fx Profound anemia, s/p 3 u PRBC Hx of polycythemia vera Severe pulmonary HTN Hypokalemia PLAN OF CARE tele O2 titrate to keep sat above 90%, pulm toilet still on 4L o2 via NC CXR 07/[address]. Extensive bilateral alveolar densities are mostly unchanged. Cardio make and small effusions unchanged. The bony thorax appear unremarkable. No significant changes Venous Duplex BLE - place SCD if negative Chest tube was dc CT head - no acute IC pathology CT C/A/P noted ; 06/22 US chest noted, m to l R pleural effusion 06/25 US chest with Small right pleural effusion, decreased compared to the prior exam. No significant pocket for thoracentesis. SARS COV-2 by PCR 06/25 not detected , 07/08 not detected as well abx as per ID, on Zosyn intra-oper cx NGTD, AFB smear NGT, BCX 07/03 NGTD off anticoagulation 2 to anemia; continue amiodarone and BB, s/p Dig x 1 per cardio, HR better, Hgb at baseline, no trend down; s/p prior transfusion cardio follows on Lasix, monitor volumes and cardiorenal parameters pro BNP trending down rate control with BB , Digoxin and Amiodarone ECHO with pEF and RVSP of 71 c/w severe pulm HTN replace K and Mg ; check K and Mg in am pain management supportive care fall precaution case discussed and evaluated by supervising physician Cait Melchor NP July 12, 2019 07:20
--- NOTE | 2019-07-12 07:33 | NUR ---
HAND-OFF: Report given to IRA Heard. Patient is in stable condition with no complaints made at this time. RN made aware of covid result, plan of care endorsed.
--- NOTE | 2019-07-12 07:40 | NUR ---
NURSE NOTES:Handoff received from IRA Patten. Patient received awake and alert and able to make needs known, no pain at this time. Patient is on bed rest, bed alarm is on. Bed in the low and locked position with call light within reach. Patient has L hand Iv site running NS@75ml/hr. Patient has purewick attached to suction. Will continue to monitor patient.
[2019-07-12 08:00] VITALS: BP 101/52
--- NOTE | 2019-07-12 08:41 | NUR ---
NURSE NOTES: Notified Ms Ruiz regarding patient potassium and magnesium level. Ruiz stated she will review patient labs soon.
[2019-07-12] MEDS: Metoprolol Tartrate 50mg tab ORAL SCH ×2 (10:08→21:09)
[2019-07-12] MEDS: Digoxin 0.125mg tab ORAL SCH (10:09)
[2019-07-12] MEDS: Heparin 5000 units/ml inj SUBQ SCH ×2 (10:10→21:11)
--- NOTE | 2019-07-12 11:18 | NUR ---
NURSE NOTES:Patient Covid negative x2 contacted Dr Arrieta to see if MD wants to discontinue isolation.
--- NOTE | 2019-07-12 11:51 | NUR ---
NURSE NOTES:Dr Arrieta gave TO/RB order to cancel contact and droplet isolation as patient is Covid negative x2.
[2019-07-12 12:00] VITALS: BP 105/54
--- NOTE | 2019-07-12 12:25 | Surgery Progress Note ---
Surgery Progress Note Subjective Procedure Performed right tube thoracostomy removal Symptoms: improved, tolerating diet, voiding well, passing flatus, pain decreased Objective Last 24 Hour Vital Signs Date Time Temp Pulse Resp B/P (MAP) Pulse Ox O2 Delivery O2 Flow Rate FiO2 07/12/19 12:00 98.1 72 18 105/54 (71) 97 07/12/19 10:09 64 07/12/19 10:08 64 101/52 07/12/19 09:00 Nasal Cannula 2.0 Nasal Cannula 2.0 07/12/19 08:00 97.5 64 19 101/52 (68) 99 07/12/19 08:00 62 07/12/19 04:00 65 07/12/19 04:00 97.7 75 16 106/70 (82) 95 07/12/19 00:00 65 07/12/19 00:00 98.6 80 16 104/84 (91) 94 07/11/19 21:00 98/61 07/11/19 21:00 Nasal Cannula 2.0 Nasal Cannula 2.0 07/11/19 20:00 98.1 74 16 98/61 (73) 95 07/11/19 20:00 76 07/11/19 19:39 95 Room Air 21 07/11/19 16:00 78 07/11/19 16:00 96.8 87 18 96/63 (74) 97 I&O Intake and Output 07/11/19 07/12/19 19:00 07:00 Intake Total 1470.0 ml 525 ml Output Total 0 ml Balance 1470.0 ml 525 ml Intake Oral 360 ml IV Total 1110.0 ml 525 ml Stool Total 0 ml # Voids 3 2 # Bowel Movements 3 Dressing: dry Wound: clean Cardiovascular: RSR Respiratory: clear Abdomen: soft, non-tender, present bowel sounds Extremities: no tenderness, no cyanosis Laboratory Tests Test 07/12/19 05:30 White Blood Count 5.2 K/UL (4.8-10.8) Red Blood Count 2.96 M/UL (4.20-5.40) L Hemoglobin 9.0 G/DL (12.0-16.0) L Hematocrit 26.7 % (37.0-47.0) L Mean Corpuscular Volume 90 FL (80-99) Mean Corpuscular Hemoglobin 30.6 PG (27.0-31.0) Mean Corpuscular Hemoglobin Concent 33.9 G/DL (32.0-36.0) Red Cell Distribution Width 16.5 % (11.6-14.8) H Platelet Count 180 K/UL (150-450) Mean Platelet Volume 9.0 FL (6.5-10.1) Neutrophils (%) (Auto) 79.3 % (45.0-75.0) H Lymphocytes (%) (Auto) 14.9 % (20.0-45.0) L Monocytes (%) (Auto) 3.0 % (1.0-10.0) Eosinophils (%) (Auto) 0.9 % (0.0-3.0) Basophils (%) (Auto) 1.9 % (0.0-2.0) Sodium Level 145 MMOL/L (136-145) Potassium Level 3.1 MMOL/L (3.5-5.1) L Chloride Level 107 MMOL/L (98-107) Carbon Dioxide Level 33 MMOL/L (21-32) H Anion Gap 5 mmol/L (5-15) Blood Urea Nitrogen 20 mg/dL (7-18) H Creatinine 0.8 MG/DL (0.55-1.30) Estimat Glomerular Filtration Rate > 60 mL/min (>60) Glucose Level 87 MG/DL (74-106) Calcium Level 7.9 MG/DL (8.5-10.1) L Magnesium Level 1.7 MG/DL (1.8-2.4) L Plan Problems: (1) Hematothorax Assessment & Plan: s/p VATS recovering okay for diet keep chest tube to suction AM CXR will monitor and remove tube when stable okay for chest tube to water seal cxr noted tube removed respiratory percussion and suction AM CXR Interim reexpansion of the left lung. There is considerable parenchymal disease throughout the left lung, however. Interim removal of previously demonstrated right chest tube. No pneumothorax. There is some pleural thickening Versus fluid at the right lung base. There is extensive right lung parenchymal interstitial and alveolar disease which appears increased from the previous study. The heart size is normal. Left chest pacemaker again demonstrated. Impression: Interim right chest tube removal. No evidence of pneumothorax Worsening bilateral parenchymal infiltrates versus edema Right lateral basilar pleural thickening versus fluid Borderline prominent cardiac silhouette. There is interval improvement in previously noted edema/failure and bilateral multifocal infiltrates. Small bilateral pleural effusions. Pacemaker device. Remainder little changed. IMPRESSION: Control, interval improvement in previously noted edema/failure and bilateral multifocal infiltrates. Errol Estrada July 12, 2019 12:25
--- NOTE | 2019-07-12 13:52 | Internal Med Progress Note ---
Subjective Date of Service: July 12, 2019 Physician Name GraceRoshan Attending Physician Antonio Adrian MD Current Medications Medications (Trade) Dose Ordered Sig/Escobar Route PRN Reason Start Time Stop Time Status Last Admin Dose Admin Acetaminophen (Tylenol) 650 mg Q4H PRN ORAL T>100.5 07/08/19 18:15 08/07/19 18:14 Acetaminophen/ Hydrocodone Bitart ([place] 10/325) 1 tab Q4H PRN ORAL Severe Pain (Pain Scale 7-10) 07/08/19 18:15 07/15/19 18:14 Acetaminophen/ Hydrocodone Bitart ([place] 5/325) 1 tab Q4H PRN ORAL Moderate Pain (Pain Scale 4-6) 07/08/19 18:15 07/15/19 18:14 Albuterol/ Ipratropium (Albuterol/ Ipratropium) 3 ml Q4H PRN HHN sob 07/08/19 18:15 07/13/19 18:14 Amiodarone HCl (Cordarone) 200 mg QHS ORAL 07/08/19 21:00 09/30/19 20:59 07/11/19 21:07 Dextrose (Dextrose 50%) 25 ml Q30M PRN IV Hypoglycemia 07/08/19 18:30 09/20/19 18:59 Dextrose (Dextrose 50%) 50 ml Q30M PRN IV Hypoglycemia 07/08/19 18:30 09/20/19 18:59 Digoxin (Lanoxin) 0.125 mg DAILY ORAL 07/09/19 09:00 10/03/19 08:59 07/12/19 10:09 Heparin Sodium (Porcine) (Heparin 5000 units/ml) 5,000 units EVERY 12 HOURS SUBQ 07/08/19 21:00 08/19/19 20:59 07/12/19 10:10 Hydroxyzine HCl (Atarax) 25 mg Q8H PRN ORAL Itching 07/08/19 18:16 08/07/19 18:15 Lorazepam (Ativan 2mg/ml 1ml) 2 mg Q3H PRN IV For Anxiety 07/08/19 18:16 07/15/19 18:15 Metoprolol Tartrate (Lopressor) 50 mg EVERY 12 HOURS ORAL 07/08/19 21:00 09/30/19 20:59 07/10/19 21:37 Piperacillin Sod/ Tazobactam Sod 3.375 gm/Sodium Chloride 110 ml @ 27.5 mls/hr EVERY 8 HOURS IVPB 07/08/19 22:00 07/13/19 05:59 07/12/19 06:04 Allergies: Coded Allergies: No Known Allergies (Unverified , 04/24/18) ROS Limited/Unobtainable: No Constitutional: Reports: no symptoms HEENT: Reports: no symptoms Cardiovascular: Reports: no symptoms Respiratory: Reports: no symptoms Gastrointestinal/Abdominal: Reports: no symptoms Genitourinary: Reports: no symptoms Neurologic/Psychiatric: Reports: no symptoms Subjective 79 YO F admitted with atypical chest pain. Now severe anemia and acute congestive heart failure. Cover for Int Med-Dr Adrian. S/P video assisted thoracoscopic exploratory surgery 07/02/19. Tele Objective Last Vital Signs Date Time Temp Pulse Resp B/P (MAP) Pulse Ox O2 Delivery O2 Flow Rate FiO2 07/12/19 12:00 98.1 72 18 105/54 (71) 97 07/12/19 09:00 Nasal Cannula 2.0 Nasal Cannula 2.0 07/11/19 19:39 21 Laboratory Tests Test 07/12/19 05:30 White Blood Count 5.2 K/UL (4.8-10.8) Red Blood Count 2.96 M/UL (4.20-5.40) L Hemoglobin 9.0 G/DL (12.0-16.0) L Hematocrit 26.7 % (37.0-47.0) L Mean Corpuscular Volume 90 FL (80-99) Mean Corpuscular Hemoglobin 30.6 PG (27.0-31.0) Mean Corpuscular Hemoglobin Concent 33.9 G/DL (32.0-36.0) Red Cell Distribution Width 16.5 % (11.6-14.8) H Platelet Count 180 K/UL (150-450) Mean Platelet Volume 9.0 FL (6.5-10.1) Neutrophils (%) (Auto) 79.3 % (45.0-75.0) H Lymphocytes (%) (Auto) 14.9 % (20.0-45.0) L Monocytes (%) (Auto) 3.0 % (1.0-10.0) Eosinophils (%) (Auto) 0.9 % (0.0-3.0) Basophils (%) (Auto) 1.9 % (0.0-2.0) Sodium Level 145 MMOL/L (136-145) Potassium Level 3.1 MMOL/L (3.5-5.1) L Chloride Level 107 MMOL/L (98-107) Carbon Dioxide Level 33 MMOL/L (21-32) H Anion Gap 5 mmol/L (5-15) Blood Urea Nitrogen 20 mg/dL (7-18) H Creatinine 0.8 MG/DL (0.55-1.30) Estimat Glomerular Filtration Rate > 60 mL/min (>60) Glucose Level 87 MG/DL (74-106) Calcium Level 7.9 MG/DL (8.5-10.1) L Magnesium Level 1.7 MG/DL (1.8-2.4) L Intake and Output 07/11/19 07/12/19 19:00 07:00 Intake Total 1470.0 ml 525 ml Output Total 0 ml Balance 1470.0 ml 525 ml Intake Oral 360 ml IV Total 1110.0 ml 525 ml Stool Total 0 ml # Voids 3 2 # Bowel Movements 3 Objective PHYSICAL EXAMINATION: GENERAL: The patient is well-developed and well-nourished female, in no apparent distress. HEENT: Eyes, pupils are equal and responsive to light and accommodation. Extraocular movements are intact. NECK: Supple without lymphadenopathy. CHEST: nasal canula; Lungs with coarse upper airway sounds without wheezes or rales. CARDIOVASCULAR: Regular rate. S1 and S2 normal without murmurs, rubs, or gallops. ABDOMEN: Soft, nontender, and nondistended. Positive bowel sounds. No evidence of hepatosplenomegaly. Currently, no rebound or guarding noted. EXTREMITIES: Negative for clubbing, cyanosis, or edema. RECTAL/GENITAL: Not performed. NEUROLOGIC: Cranial nerves II through XII are grossly intact without focal deficits. Assessment/Plan Assessment/Plan ASSESSMENT: This is an 79-year-old female. 1. Chest pain. 2. Fall injury. 3. Severe anemia. 4. Atrial fibrillation. 5. Polycythemia vera. 6. Hypertension. 7. Obstructive sleep apnea. 8. Coronary artery disease. 9. Hypercholesterolemia. 10. Congestive heart failure; AQR=[id number] 11. Right pleural hemothorax 12. Severe anemia 13. left pneumonia 14. Persistent hypokalemia TREATMENT: 1. Chest pain. This may be secondary to fall injury. Initial troponin level was negative. Repeat troponin levels are pending. A Cardiology consultation has been obtained with Dr. Mainor Araujo. 2. Atrial fibrillation. As above, a Cardiology consultation has been obtained with Dr. Mainor Araujo. 3. Polycythemia vera. The patient is currently anemic. 4. Hypertension. Continue metoprolol as above. 5. Obstructive sleep apnea. 6. Coronary artery disease, status post myocardial infarction. As above, a Cardiology consultation has been obtained with Dr. Mainor Araujo. 7. Hypercholesteremia. 8. Congestive heart failure. 9. Pacemaker in situ. Pacemaker check is pending. 10. right thoracentesis pending 11. Discuss with patient regarding discharge planning, wants to go home, refused SNF. 12. CODE STATUS is full code. 13. Broad spectrum antibiotics with Rocephin IV. 14. Monitor cultures and laboratory. 15. DVT prophylaxis: SCD. 16. OOB to chair, PT Mobility 17. Dc Telemetry 18. S/P video assisted Thoracoscopic exploratory surgery 07/02/19; Thoracic surg=Dr. Malik 19. Right chest tube discontinued 07/07/19 20. S/P Transfusion 5 units PRBC 21. ABX=zosyn per ID=Dr Arrieta 22. KCL 40 meq BID X 3 days Roshan Edwards MD July 12, 2019 13:52
--- NOTE | 2019-07-12 14:12 | Cardiology Progress Note ---
Assessment/Plan Assessment/Plan 1. Paroxysmal episodes of atrial fibrillation. 2. Sick sinus syndrome status post pacemaker implantation with generator replacement in July of 2018. 3. Profound anemia. 4. History of polycythemia. 5. Probable urinary tract infection. 6. Fall. 7. Reported history of polycythemia vera. 8. Sleep apnea history. 9. Rib fracture 10 hemothorax s/p vats 11. Pulmonary htn 71 12. left lung collapse / opacifiction of left lung resolved 13. diarrhea 14. pulm infiltrate suspicion for covid 19 15. Hypotension s/ vats ct removed tele atrial sensed / paced v sensed sinus , afib cxr personally reviewed bialt infiltrates tele personally reviewed sinus bp is better ef 55% d/w rn covid resultl still pending in isolation again pui no new cxr Subjective Subjective remain in isolation Patient stable, AOx4 with no complaints at this time. No s/sx of pain or distress. RR even and unlabored, currently off NC and on RA. Objective Last 24 Hour Vital Signs Date Time Temp Pulse Resp B/P (MAP) Pulse Ox O2 Delivery O2 Flow Rate FiO2 07/12/19 12:00 98.1 72 18 105/54 (71) 97 07/12/19 12:00 61 07/12/19 10:09 64 07/12/19 10:08 64 101/52 07/12/19 09:00 Nasal Cannula 2.0 Nasal Cannula 2.0 07/12/19 08:16 96 Nasal Cannula 2.0 28 07/12/19 08:00 97.5 64 19 101/52 (68) 99 07/12/19 08:00 62 07/12/19 04:00 65 07/12/19 04:00 97.7 75 16 106/70 (82) 95 07/12/19 00:00 65 07/12/19 00:00 98.6 80 16 104/84 (91) 94 07/11/19 21:00 98/61 07/11/19 21:00 Nasal Cannula 2.0 Nasal Cannula 2.0 07/11/19 20:00 98.1 74 16 98/61 (73) 95 07/11/19 20:00 76 07/11/19 19:39 95 Room Air 21 07/11/19 16:00 78 07/11/19 16:00 96.8 87 18 96/63 (74) 97 Intake and Output 07/11/19 07/12/19 19:00 07:00 Intake Total 1470.0 ml 525 ml Output Total 0 ml Balance 1470.0 ml 525 ml Intake Oral 360 ml IV Total 1110.0 ml 525 ml Stool Total 0 ml # Voids 3 2 # Bowel Movements 3 Laboratory Tests Test 07/12/19 05:30 White Blood Count 5.2 K/UL (4.8-10.8) Red Blood Count 2.96 M/UL (4.20-5.40) L Hemoglobin 9.0 G/DL (12.0-16.0) L Hematocrit 26.7 % (37.0-47.0) L Mean Corpuscular Volume 90 FL (80-99) Mean Corpuscular Hemoglobin 30.6 PG (27.0-31.0) Mean Corpuscular Hemoglobin Concent 33.9 G/DL (32.0-36.0) Red Cell Distribution Width 16.5 % (11.6-14.8) H Platelet Count 180 K/UL (150-450) Mean Platelet Volume 9.0 FL (6.5-10.1) Neutrophils (%) (Auto) 79.3 % (45.0-75.0) H Lymphocytes (%) (Auto) 14.9 % (20.0-45.0) L Monocytes (%) (Auto) 3.0 % (1.0-10.0) Eosinophils (%) (Auto) 0.9 % (0.0-3.0) Basophils (%) (Auto) 1.9 % (0.0-2.0) Sodium Level 145 MMOL/L (136-145) Potassium Level 3.1 MMOL/L (3.5-5.1) L Chloride Level 107 MMOL/L (98-107) Carbon Dioxide Level 33 MMOL/L (21-32) H Anion Gap 5 mmol/L (5-15) Blood Urea Nitrogen 20 mg/dL (7-18) H Creatinine 0.8 MG/DL (0.55-1.30) Estimat Glomerular Filtration Rate > 60 mL/min (>60) Glucose Level 87 MG/DL (74-106) Calcium Level 7.9 MG/DL (8.5-10.1) L Magnesium Level 1.7 MG/DL (1.8-2.4) L Objective per pulm PA Heart: HR/BP stable, tele V pacing Abdomen: soft, non-tender, active bowel sounds, Extremities: no edema Respiratory: rhonchi - left, rhonchi - right Mainor Araujo MD July 12, 2019 14:12
--- NOTE | 2019-07-12 14:15 | NUR ---
NURSE NOTES: Spoke to Dr Edwards to confirm potassium order, as patient received 40MEQ's KCL this AM. confirmed order for 1800 dose of KCL.
[2019-07-12 16:00] VITALS: BP 101/64
--- NOTE | 2019-07-12 16:19 | Infectious Diseases Prog Note ---
Assessment/Plan Assessment/Plan Assessment: Low grade fever; intermittent- SP No leukocytosis -07/03 Bcx Neg -06/21 u/a wbc 15-20, nit neg, leuk+3; UCx <10 mixed urogenital contaminants PNA- COVID19 neg x2 -07/08 SARS-COV2 PCR neg -07/07 CXR: Interim right chest tube removal. No evidence of pneumothorax. Worsening bilateral parenchymal infiltrates versus edema. Right lateral basilar pleural thickening versus fluid -07/05 CXR: . Slightly improved moderate left pleural effusion. Slightly improved left perihilar interstitial thickening and lower lung opacity. Minimally improved right interstitial thickening and perihilar and lower lobe opacities. Improving right chest wall emphysema. Stable right chest tube. -06/26 CXR: Pulmonary vascular congestion, similar to mildly increased from the prior exam. No significant change in the small right pleural effusion or subtle infiltrate in the right lung base. -06/25 SARS-COV2 PCR neg -06/23 CXR: Right basilar infiltrate with trace right effusion. s/p Mechanical fall Rib, abdominal pain- 2ry to R rib fractures and large R pleural effusion/ hemothorax ?Post-op pos-obstructive PNA -07/03 CXR: . Interval development of diffuse opacification of the left lung. This raises possibility of having developed a left mainstem bronchus obstruction with postobstructive atelectasis. Alternatively a very large left effusion or severe left-sided pneumonia could have similar appearance, although unlikely to have developed since the prior exam. -07/01 SP Flexible bronchoscopy. Right video-assisted thoracoscopic surgery. Intrapleural pneumolysis.Evacuation of right intrathoracic blood. Intercostal nerve block. --OR Findings: Minimal amount of mucopurulent secretion was lavaged and suctioned clear. Righ hemithorax: There was noted to be some adhesions There was noted to be no protrusion of any fractured ribs into the intrathoracic cavity as the entire parietal pleura appears to be intact. -- cx neg (aerobic and anaerobic) --AFB smear neg; cx p -06/25 Chest US: Small right pleural effusion, decreased compared to the prior exam. No significant pocket for thoracentesis. -06/22 Chest US: Positive for right pleural effusion -06/[address]: 1. 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 No acute intracranial pathology is detected. CT C/abd/p:No evidence of acute injury to the abdominal or pelvic viscera. Somewhat limited study due to motion artifact. Cholelithiasis. Acute posterior medial lower right rib fractures. Moderate to large right pleural effusion, possibly containing an element of the hemothorax. Cardiomegaly.ASCVD. No pneumothoraces. Acute on chronic anemia -08/06/18 sp EGD: Normal upper endoscopy, status post biopsy. -path: mild chronic gastritis, no H. pylori identified pAfib hx of rib fractures Sinus node dysfunction s/p PPM (batter exchange July 2018) s/p KELI GERD polycythemia vera HLD MDD anemia NSTEMI s/p normal cardiac catheterization 2019 HTN KELVIN dCHF Plan: -Continue empiric Zosyn #9/10 (abx d#17) -07/03 SP Ceftriaxone #9 -f/u cx -Monitor CBC/CMP, temperatures -aspiration precautions -Pulm, CT sx, cards f/u -COVID 19 neg x2; ok to dc isolation Thank you for consulting [facility]. Will contiue to follow along with you. Discussed with RN Subjective Allergies: Coded Allergies: No Known Allergies (Unverified , 04/24/18) Subjective afebrile on 2l NC no leukocytosis covid neg Objective Vital Signs Last 24 Hour Vital Signs Date Time Temp Pulse Resp B/P (MAP) Pulse Ox O2 Delivery O2 Flow Rate FiO2 07/12/19 12:00 98.1 72 18 105/54 (71) 97 07/12/19 12:00 61 07/12/19 10:09 64 07/12/19 10:08 64 101/52 07/12/19 09:00 Nasal Cannula 2.0 Nasal Cannula 2.0 07/12/19 08:16 96 Nasal Cannula 2.0 28 07/12/19 08:00 97.5 64 19 101/52 (68) 99 07/12/19 08:00 62 07/12/19 04:00 65 07/12/19 04:00 97.7 75 16 106/70 (82) 95 07/12/19 00:00 65 07/12/19 00:00 98.6 80 16 104/84 (91) 94 07/11/19 21:00 98/61 07/11/19 21:00 Nasal Cannula 2.0 Nasal Cannula 2.0 07/11/19 20:00 98.1 74 16 98/61 (73) 95 07/11/19 20:00 76 07/11/19 19:39 95 Room Air 21 Height (Feet): 5 Height (Inches): 0.00 Weight (Pounds): 136 Objective General Appearance: no acute distress, other - elderly female in NAD HEENT: normocephalic, atraumatic, anicteric Respiratory: decreased breath sounds Cardiovascular: normal rate Abdomen: normal bowel sounds, soft, non tender Extremities: no edema Neurologic: abnormal gait - unsteady, alert, responsive Musculoskeletal: atrophy Laboratory Tests Test 07/12/19 05:30 White Blood Count 5.2 K/UL (4.8-10.8) Red Blood Count 2.96 M/UL (4.20-5.40) L Hemoglobin 9.0 G/DL (12.0-16.0) L Hematocrit 26.7 % (37.0-47.0) L Mean Corpuscular Volume 90 FL (80-99) Mean Corpuscular Hemoglobin 30.6 PG (27.0-31.0) Mean Corpuscular Hemoglobin Concent 33.9 G/DL (32.0-36.0) Red Cell Distribution Width 16.5 % (11.6-14.8) H Platelet Count 180 K/UL (150-450) Mean Platelet Volume 9.0 FL (6.5-10.1) Neutrophils (%) (Auto) 79.3 % (45.0-75.0) H Lymphocytes (%) (Auto) 14.9 % (20.0-45.0) L Monocytes (%) (Auto) 3.0 % (1.0-10.0) Eosinophils (%) (Auto) 0.9 % (0.0-3.0) Basophils (%) (Auto) 1.9 % (0.0-2.0) Sodium Level 145 MMOL/L (136-145) Potassium Level 3.1 MMOL/L (3.5-5.1) L Chloride Level 107 MMOL/L (98-107) Carbon Dioxide Level 33 MMOL/L (21-32) H Anion Gap 5 mmol/L (5-15) Blood Urea Nitrogen 20 mg/dL (7-18) H Creatinine 0.8 MG/DL (0.55-1.30) Estimat Glomerular Filtration Rate > 60 mL/min (>60) Glucose Level 87 MG/DL (74-106) Calcium Level 7.9 MG/DL (8.5-10.1) L Magnesium Level 1.7 MG/DL (1.8-2.4) L Current Medications Medications (Trade) Dose Ordered Sig/Escobar Route PRN Reason Start Time Stop Time Status Last Admin Dose Admin Acetaminophen (Tylenol) 650 mg Q4H PRN ORAL T>100.5 07/08/19 18:15 08/07/19 18:14 Acetaminophen/ Hydrocodone Bitart ([place] 10/325) 1 tab Q4H PRN ORAL Severe Pain (Pain Scale 7-10) 07/08/19 18:15 07/15/19 18:14 Acetaminophen/ Hydrocodone Bitart ([place] 5/325) 1 tab Q4H PRN ORAL Moderate Pain (Pain Scale 4-6) 07/08/19 18:15 07/15/19 18:14 Albuterol/ Ipratropium (Albuterol/ Ipratropium) 3 ml Q4H PRN HHN sob 07/08/19 18:15 07/13/19 18:14 Amiodarone HCl (Cordarone) 200 mg QHS ORAL 07/08/19 21:00 09/30/19 20:59 07/11/19 21:07 Dextrose (Dextrose 50%) 25 ml Q30M PRN IV Hypoglycemia 07/08/19 18:30 09/20/19 18:59 Dextrose (Dextrose 50%) 50 ml Q30M PRN IV Hypoglycemia 07/08/19 18:30 09/20/19 18:59 Digoxin (Lanoxin) 0.125 mg DAILY ORAL 07/09/19 09:00 10/03/19 08:59 07/12/19 10:09 Heparin Sodium (Porcine) (Heparin 5000 units/ml) 5,000 units EVERY 12 HOURS SUBQ 07/08/19 21:00 08/19/19 20:59 07/12/19 10:10 Hydroxyzine HCl (Atarax) 25 mg Q8H PRN ORAL Itching 07/08/19 18:16 08/07/19 18:15 Lorazepam (Ativan 2mg/ml 1ml) 2 mg Q3H PRN IV For Anxiety 07/08/19 18:16 07/15/19 18:15 Metoprolol Tartrate (Lopressor) 50 mg EVERY 12 HOURS ORAL 07/08/19 21:00 09/30/19 20:59 07/10/19 21:37 Piperacillin Sod/ Tazobactam Sod 3.375 gm/Sodium Chloride 110 ml @ 27.5 mls/hr EVERY 8 HOURS IVPB 07/08/19 22:00 07/13/19 05:59 07/12/19 14:49 Potassium Chloride (K-Dur) 40 meq TWICE A DAY ORAL 07/12/19 18:00 07/15/19 15:00 Alejandrina Arrieta M.D. July 12, 2019 16:18
--- NOTE | 2019-07-12 19:15 | NUR ---
HAND-OFF: Report given to IRA Patten.
--- NOTE | 2019-07-12 19:31 | NUR ---
NURSE NOTES: Received report from IRA Heard. Patient is alert and oriented x 3. Patient has oxygen @ 2 Lpm via nasal cannula saturating 94%. IV site is on Left hand g-22, running fluid of NS @ 75cc/hour that is patent and intact. Patient is on regular, mechanical soft diet, + ensure three times a day, instructed and amenable. ekg monitor tech is on shows Atrial fibrillation. Patient is incontinent x 2, pure wick is in placed. On standard precaution. Safety measures are in placed, bed in lowest and lock position, side rails up x 2. Bed alarm is on. Call light and bedside table within reach. Will continue plan of care.
[2019-07-12 20:00] VITALS: BP 109/59
[2019-07-12] MEDS: Amiodarone 200mg tab ORAL SCH (21:09)
[2019-07-13] VITALS: BP 107/52
[2019-07-13 04:00] VITALS: BP 103/52
[2019-07-13 07:32] LABS: ANION GAP 4 mmol/L (5-15); BLOOD UREA NITROGEN 16 mg/dL (7-18); CALCIUM 8.4 MG/DL (8.5-10.1); CARBON DIOXIDE 30 MMOL/L (21-32); CHLORIDE 108 MMOL/L (98-107); CREATININE 0.8 MG/DL (0.55-1.30); POTASSIUM 4.5 MMOL/L (3.5-5.1); SODIUM 142 MMOL/L (136-145)
[2019-07-13 07:44] LABS: BASOPHILS % (AUTO) 2.1 % (0.0-2.0); EOSINOPHILS % (AUTO) 0.9 % (0.0-3.0); HEMATOCRIT 26.2 % (37.0-47.0); HEMOGLOBIN 9.1 G/DL (12.0-16.0); LYMPHOCYTES % (AUTO) 9.4 % (20.0-45.0); MEAN CORPUSCULAR VOLUME 90 FL (80-99); MONOCYTES % (AUTO) 3.4 % (1.0-10.0); NEUTROPHILS % (AUTO) 84.2 % (45.0-75.0); PLATELET COUNT 157 K/UL (150-450); RED BLOOD COUNT 2.93 M/UL (4.20-5.40); RED CELL DISTRIBUTION WIDTH 17.3 % (11.6-14.8); WHITE BLOOD COUNT 6.3 K/UL (4.8-10.8)
--- NOTE | 2019-07-13 07:47 | NUR ---
HAND-OFF: Report given to IRA Foster. Patient is awake, eating breakfast in stable condition. Plan of care endorsed.
--- NOTE | 2019-07-13 07:48 | NUR ---
NURSE NOTES: Received patient in bed awake. O2 via NC in place, no SOB or acute distress. IV line intact. HOB elevated. Bed locked in lowest position. Call light within reach. Will continue plan of care.
[2019-07-13 08:00] VITALS: BP 113/50
[2019-07-13] MEDS: Metoprolol Tartrate 50mg tab ORAL SCH ×2 (08:52→22:23)
[2019-07-13] MEDS: Digoxin 0.125mg tab ORAL SCH (08:52)
[2019-07-13] MEDS: Heparin 5000 units/ml inj SUBQ SCH ×2 (08:53→22:21)
[2019-07-13] MEDS ORDERED: Tubing Blood Filter IV ONE (09:34)
[2019-07-13] MEDS ORDERED: NS 275ml ONE (09:34)
[2019-07-13] MEDS ORDERED: D5NS 1000ml IV ONE (09:34)
--- NOTE | 2019-07-13 09:45 | NUR ---
PT NOTE Attempted to see patient for PT treatment. Patient declining to participate, states "I can't, maybe tomorrow." Explained to patient benefits and importance of performing exercises and mobility activities however patient continued to decline despite encouragement and explanations. Kristin ROTH and Dr. Estrada notified, will re-attempt tomorrow.
--- NOTE | 2019-07-13 10:30 | NUR ---
NURSE NOTES: NC removed and checked O2 sat: 86% without O2. NC put back at 2LPM, O2 sat went up to 97%. Brittney BEY made aware.
--- NOTE | 2019-07-13 11:16 | Diagnostic Imaging Report ---
Indication: Shortness of breath Technique: One view of the chest Comparison: 07/11/2019 Findings: Bilateral pleural effusions and bilateral basilar infiltrates versus edema have increased since prior exam. The heart is upper limits of normal in size. Left chest pacemaker remains Impression: Increasing bilateral basilar infiltrates/edema and pleural effusions, over 2 days
[2019-07-13 12:00] VITALS: BP 107/50
--- NOTE | 2019-07-13 12:23 | NUR ---
DISCHARGE PLANNING PATIENT HAS BEEN REFERRED TO [facility] EM[facility]PARTMENT FOR OXYGEN AND [facility] FOR OT/PT AND NURSE VISIT AWAIT CONFIRMATION
--- NOTE | 2019-07-13 12:24 | Pulmonology Progress Note ---
Subjective ROS Limited/Unobtainable: No Interval Events: chest tube is out Constitutional: Reports: no symptoms HEENT: Repors: no symptoms Allergies: Coded Allergies: No Known Allergies (Unverified , 04/24/18) Objective Last 24 Hour Vital Signs Date Time Temp Pulse Resp B/P (MAP) Pulse Ox O2 Delivery O2 Flow Rate FiO2 07/13/19 12:00 97.7 79 19 107/50 (69) 98 07/13/19 09:00 Nasal Cannula 2.0 Nasal Cannula 2.0 07/13/19 08:52 87 113/50 07/13/19 08:52 87 07/13/19 08:00 62 07/13/19 08:00 97.7 87 18 113/50 (71) 99 07/13/19 04:00 97.9 62 20 103/52 (69) 94 07/13/19 04:00 60 07/13/19 00:00 98.0 60 20 107/52 (70) 98 07/13/19 00:00 60 07/12/19 21:09 79 109/65 07/12/19 21:00 Nasal Cannula 2.0 Nasal Cannula 2.0 07/12/19 20:00 65 07/12/19 20:00 94 Nasal Cannula 2.0 28 07/12/19 20:00 97.5 72 20 109/59 (76) 94 07/12/19 16:00 97.6 81 19 101/64 (76) 98 07/12/19 16:00 65 Intake and Output 07/12/19 07/13/19 19:00 07:00 Intake Total 120 ml 400 ml Output Total 1200 ml 480 ml Balance -1080 ml -80 ml Intake Oral 120 ml 400 ml Output Urine Total 1200 ml 480 ml # Voids 3 General Appearance: WD/WN HEENT: normocephalic, atraumatic Respiratory: chest wall non-tender, lungs clear, rhonchi - left, rhonchi - right Cardiovascular: normal peripheral pulses, normal rate Abdomen: normal bowel sounds, soft, non tender Genitourinary: normal external genitalia Extremities: no clubbing Skin: no rash Neurologic: dust box tender II-XII grossly normal Laboratory Tests 07/13/19 06:45: White Blood Count 6.3, Red Blood Count 2.93L, Hemoglobin 9.1L, Hematocrit 26.2L , Mean Corpuscular Volume 90, Mean Corpuscular Hemoglobin 31.0, Mean Corpuscular Hemoglobin Concent 34.6, Red Cell Distribution Width 17.3H, Platelet Count 157, Mean Platelet Volume 9.9, Neutrophils (%) (Auto) 84.2H, Lymphocytes (%) (Auto) 9.4L, Monocytes (%) (Auto) 3.4, Eosinophils (%) (Auto) 0.9, Basophils (%) (Auto) 2.1H, Sodium Level 142, Potassium Level 4.5, Chloride Level 108H, Carbon Dioxide Level 30, Anion Gap 4L, Blood Urea Nitrogen 16, Creatinine 0.8, Estimat Glomerular Filtration Rate > 60, Glucose Level 84, Calcium Level 8.4L Current Medications Medications (Trade) Dose Ordered Sig/Escobar Route PRN Reason Start Time Stop Time Status Last Admin Dose Admin Acetaminophen (Tylenol) 650 mg Q4H PRN ORAL T>100.5 07/08/19 18:15 08/07/19 18:14 Acetaminophen/ Hydrocodone Bitart ([place] 10/325) 1 tab Q4H PRN ORAL Severe Pain (Pain Scale 7-10) 07/08/19 18:15 07/15/19 18:14 07/12/19 18:20 Acetaminophen/ Hydrocodone Bitart ([place] 5/325) 1 tab Q4H PRN ORAL Moderate Pain (Pain Scale 4-6) 07/08/19 18:15 07/15/19 18:14 Albuterol/ Ipratropium (Albuterol/ Ipratropium) 3 ml Q4H PRN HHN sob 07/08/19 18:15 07/13/19 18:14 Amiodarone HCl (Cordarone) 200 mg QHS ORAL 07/08/19 21:00 09/30/19 20:59 07/12/19 21:09 Dextrose (Dextrose 50%) 25 ml Q30M PRN IV Hypoglycemia 07/08/19 18:30 09/20/19 18:59 Dextrose (Dextrose 50%) 50 ml Q30M PRN IV Hypoglycemia 07/08/19 18:30 09/20/19 18:59 Digoxin (Lanoxin) 0.125 mg DAILY ORAL 07/09/19 09:00 10/03/19 08:59 07/13/19 08:52 Heparin Sodium (Porcine) (Heparin 5000 units/ml) 5,000 units EVERY 12 HOURS SUBQ 07/08/19 21:00 08/19/19 20:59 07/12/19 21:11 Hydroxyzine HCl (Atarax) 25 mg Q8H PRN ORAL Itching 07/08/19 18:16 08/07/19 18:15 Lorazepam (Ativan 2mg/ml 1ml) 2 mg Q3H PRN IV For Anxiety 07/08/19 18:16 07/15/19 18:15 Metoprolol Tartrate (Lopressor) 50 mg EVERY 12 HOURS ORAL 07/08/19 21:00 09/30/19 20:59 07/13/19 08:52 Potassium Chloride (K-Dur) 40 meq TWICE A DAY ORAL 07/12/19 18:00 07/15/19 15:00 07/13/19 08:51 Assessment/Plan Problems: (1) Pulmonary edema (2) RLL pneumonia (3) Collapse of left lung Assessment & Plan: resolved (4) Pleural effusion (5) Chronic anticoagulation (6) Ribs, multiple fractures (7) Atrial fibrillation (8) Pacemaker (9) COPD (chronic obstructive pulmonary disease) (10) KELVIN (obstructive sleep apnea) Assessment/Plan restart shanae singh, cxr from 07/12 reviewed: increasing bilateral alveolar densities no new complains no short of breath, despite left collapse incentive spirometry chest PT only to left site afebrile, COVID negative times Roberto barbosa Mirali MD Jul 13, 2019 12:24
--- NOTE | 2019-07-13 12:30 | Surgery Progress Note ---
Surgery Progress Note Subjective Procedure Performed right tube thoracostomy removal Additional Comments cxr worse does not want to participate in physical therapy Objective Last 24 Hour Vital Signs Date Time Temp Pulse Resp B/P (MAP) Pulse Ox O2 Delivery O2 Flow Rate FiO2 07/13/19 12:00 60 07/13/19 12:00 97.7 79 19 107/50 (69) 98 07/13/19 09:00 Nasal Cannula 2.0 Nasal Cannula 2.0 07/13/19 08:52 87 113/50 07/13/19 08:52 87 07/13/19 08:00 62 07/13/19 08:00 97.7 87 18 113/50 (71) 99 07/13/19 04:00 97.9 62 20 103/52 (69) 94 07/13/19 04:00 60 07/13/19 00:00 98.0 60 20 107/52 (70) 98 07/13/19 00:00 60 07/12/19 21:09 79 109/65 07/12/19 21:00 Nasal Cannula 2.0 Nasal Cannula 2.0 07/12/19 20:00 65 07/12/19 20:00 94 Nasal Cannula 2.0 28 07/12/19 20:00 97.5 72 20 109/59 (76) 94 07/12/19 16:00 97.6 81 19 101/64 (76) 98 07/12/19 16:00 65 I&O Intake and Output 07/12/19 07/13/19 19:00 07:00 Intake Total 120 ml 400 ml Output Total 1200 ml 480 ml Balance -1080 ml -80 ml Intake Oral 120 ml 400 ml Output Urine Total 1200 ml 480 ml # Voids 3 Dressing: other Wound: other Drains: other Cardiovascular: RSR Respiratory: decreased breath sounds Abdomen: soft, non-tender, present bowel sounds Extremities: no cyanosis Laboratory Tests Test 07/13/19 06:45 White Blood Count 6.3 K/UL (4.8-10.8) Red Blood Count 2.93 M/UL (4.20-5.40) L Hemoglobin 9.1 G/DL (12.0-16.0) L Hematocrit 26.2 % (37.0-47.0) L Mean Corpuscular Volume 90 FL (80-99) Mean Corpuscular Hemoglobin 31.0 PG (27.0-31.0) Mean Corpuscular Hemoglobin Concent 34.6 G/DL (32.0-36.0) Red Cell Distribution Width 17.3 % (11.6-14.8) H Platelet Count 157 K/UL (150-450) Mean Platelet Volume 9.9 FL (6.5-10.1) Neutrophils (%) (Auto) 84.2 % (45.0-75.0) H Lymphocytes (%) (Auto) 9.4 % (20.0-45.0) L Monocytes (%) (Auto) 3.4 % (1.0-10.0) Eosinophils (%) (Auto) 0.9 % (0.0-3.0) Basophils (%) (Auto) 2.1 % (0.0-2.0) H Sodium Level 142 MMOL/L (136-145) Potassium Level 4.5 MMOL/L (3.5-5.1) Chloride Level 108 MMOL/L (98-107) H Carbon Dioxide Level 30 MMOL/L (21-32) Anion Gap 4 mmol/L (5-15) L Blood Urea Nitrogen 16 mg/dL (7-18) Creatinine 0.8 MG/DL (0.55-1.30) Estimat Glomerular Filtration Rate > 60 mL/min (>60) Glucose Level 84 MG/DL (74-106) Calcium Level 8.4 MG/DL (8.5-10.1) L Plan Problems: (1) Hematothorax Assessment & Plan: s/p VATS recovering okay for diet keep chest tube to suction AM CXR will monitor and remove tube when stable okay for chest tube to water seal cxr noted tube removed respiratory percussion and suction AM CXR Interim reexpansion of the left lung. There is considerable parenchymal disease throughout the left lung, however. Interim removal of previously demonstrated right chest tube. No pneumothorax. There is some pleural thickening Versus fluid at the right lung base. There is extensive right lung parenchymal interstitial and alveolar disease which appears increased from the previous study. The heart size is normal. Left chest pacemaker again demonstrated. Impression: Interim right chest tube removal. No evidence of pneumothorax Worsening bilateral parenchymal infiltrates versus edema Right lateral basilar pleural thickening versus fluid Borderline prominent cardiac silhouette. There is interval improvement in previously noted edema/failure and bilateral multifocal infiltrates. Small bilateral pleural effusions. Pacemaker device. Remainder little changed. IMPRESSION: Control, interval improvement in previously noted edema/failure and bilateral multifocal infiltrates. Errol Estrada Jul 13, 2019 12:30
--- NOTE | 2019-07-13 12:53 | NUR ---
CASE MANAGEMENT:REVIEW 07/13/19 SI: RT HEMOTHORAX. S/P CHEST TUBE REMOVAL 07/08/19 COVID(-) CXR(+) BILATERAL BASILAR INFILTRATES 97.7 79 19 107/50 98% ON 2L/NC IS: IV LASIX QD K-DUR PO BID DIGOXIN PO QD AMIODARONE PO QHS HEPARIN SQ Q12 LOPRESSOR PO Q12 : TELEMETRY STATUS DCP: FROM HOME PLAN: CXR TODAY SHOWS SIGNS OF WORSENING INFILTRATES DIURESIS W/IV LASIX ORDERED HOME OXYGEN AND HOME HEALTH
--- NOTE | 2019-07-13 13:17 | NUR ---
NURSE NOTES: IV line leaking, removed and transferred to left wrist using g24.
--- NOTE | 2019-07-13 13:24 | Cardiac Electrophysiology PN ---
Assessment/Plan Assessment/Plan 1. Status post [employer] pacer implantation 2010 and generator change by me in 07/2018 with normal function. 2. PAF with RVR. In SR/A paced on amiodarone 200 mg daily ,metoprolol 50 mg b.i.d. and Dig 0.125 po daily Off anticoagulation in view of severe anemia, needing blood transfusion. 3. Chest pain, felt to be musculoskeletal by Dr. Araujo. The patient was ruled out for myocardial infarction. EF on 06/26/2019 was 55% 4. Urinary tract infection. 5. Hypertension. Continue metoprolol at this time. 6. Polycythemia vera, 7. Recurrent falls. . 8. Severe pulmonary hypertension. PA pressure of 71. 9. Hemothorax. S/P VATS by Dr Malik. Chest tube removed DW RN Subjective Subjective Intermittently A or V pacing on tele. Covid negative off isolation. On 2 liter NC Objective Last 24 Hour Vital Signs Date Time Temp Pulse Resp B/P (MAP) Pulse Ox O2 Delivery O2 Flow Rate FiO2 07/13/19 12:00 60 07/13/19 12:00 97.7 79 19 107/50 (69) 98 07/13/19 09:00 Nasal Cannula 2.0 Nasal Cannula 2.0 07/13/19 08:52 87 113/50 07/13/19 08:52 87 07/13/19 08:00 62 07/13/19 08:00 97.7 87 18 113/50 (71) 99 07/13/19 04:00 97.9 62 20 103/52 (69) 94 07/13/19 04:00 60 07/13/19 00:00 98.0 60 20 107/52 (70) 98 07/13/19 00:00 60 07/12/19 21:09 79 109/65 07/12/19 21:00 Nasal Cannula 2.0 Nasal Cannula 2.0 07/12/19 20:00 65 07/12/19 20:00 94 Nasal Cannula 2.0 28 07/12/19 20:00 97.5 72 20 109/59 (76) 94 07/12/19 16:00 97.6 81 19 101/64 (76) 98 07/12/19 16:00 65 Intake and Output 07/12/19 07/13/19 19:00 07:00 Intake Total 120 ml 400 ml Output Total 1200 ml 480 ml Balance -1080 ml -80 ml Intake Oral 120 ml 400 ml Output Urine Total 1200 ml 480 ml # Voids 3 Laboratory Tests Test 07/13/19 06:45 White Blood Count 6.3 K/UL (4.8-10.8) Red Blood Count 2.93 M/UL (4.20-5.40) L Hemoglobin 9.1 G/DL (12.0-16.0) L Hematocrit 26.2 % (37.0-47.0) L Mean Corpuscular Volume 90 FL (80-99) Mean Corpuscular Hemoglobin 31.0 PG (27.0-31.0) Mean Corpuscular Hemoglobin Concent 34.6 G/DL (32.0-36.0) Red Cell Distribution Width 17.3 % (11.6-14.8) H Platelet Count 157 K/UL (150-450) Mean Platelet Volume 9.9 FL (6.5-10.1) Neutrophils (%) (Auto) 84.2 % (45.0-75.0) H Lymphocytes (%) (Auto) 9.4 % (20.0-45.0) L Monocytes (%) (Auto) 3.4 % (1.0-10.0) Eosinophils (%) (Auto) 0.9 % (0.0-3.0) Basophils (%) (Auto) 2.1 % (0.0-2.0) H Sodium Level 142 MMOL/L (136-145) Potassium Level 4.5 MMOL/L (3.5-5.1) Chloride Level 108 MMOL/L (98-107) H Carbon Dioxide Level 30 MMOL/L (21-32) Anion Gap 4 mmol/L (5-15) L Blood Urea Nitrogen 16 mg/dL (7-18) Creatinine 0.8 MG/DL (0.55-1.30) Estimat Glomerular Filtration Rate > 60 mL/min (>60) Glucose Level 84 MG/DL (74-106) Calcium Level 8.4 MG/DL (8.5-10.1) L Objective HEAD AND NECK: No JVD LUNGS: Coarse rhonchi. Decreased BS on R CARDIOVASCULAR: Shows regular S1 and S2 with no gallop. ABDOMEN: Soft. EXTREMITIES: No pitting edema. SKIN: The pacemaker in the left subclavian intact. Toluie,River MD Jul 13, 2019 13:24
--- NOTE | 2019-07-13 15:18 | Infectious Diseases Prog Note ---
Assessment/Plan Assessment/Plan Assessment: Low grade fever; intermittent- SP No leukocytosis -07/03 Bcx Neg -06/21 u/a wbc 15-20, nit neg, leuk+3; UCx <10 mixed urogenital contaminants PNA- COVID19 neg x2 -07/12 CXR: Increasing bilateral basilar infiltrates/edema and pleural effusions, over 2 days -07/08 SARS-COV2 PCR neg -07/07 CXR: Interim right chest tube removal. No evidence of pneumothorax. Worsening bilateral parenchymal infiltrates versus edema. Right lateral basilar pleural thickening versus fluid -07/05 CXR: . Slightly improved moderate left pleural effusion. Slightly improved left perihilar interstitial thickening and lower lung opacity. Minimally improved right interstitial thickening and perihilar and lower lobe opacities. Improving right chest wall emphysema. Stable right chest tube. -06/26 CXR: Pulmonary vascular congestion, similar to mildly increased from the prior exam. No significant change in the small right pleural effusion or subtle infiltrate in the right lung base. -06/25 SARS-COV2 PCR neg -06/23 CXR: Right basilar infiltrate with trace right effusion. s/p Mechanical fall Rib, abdominal pain- 2ry to R rib fractures and large R pleural effusion/ hemothorax ?Post-op pos-obstructive PNA -07/03 CXR: . Interval development of diffuse opacification of the left lung. This raises possibility of having developed a left mainstem bronchus obstruction with postobstructive atelectasis. Alternatively a very large left effusion or severe left-sided pneumonia could have similar appearance, although unlikely to have developed since the prior exam. -07/01 SP Flexible bronchoscopy. Right video-assisted thoracoscopic surgery. Intrapleural pneumolysis.Evacuation of right intrathoracic blood. Intercostal nerve block. --OR Findings: Minimal amount of mucopurulent secretion was lavaged and suctioned clear. Righ hemithorax: There was noted to be some adhesions There was noted to be no protrusion of any fractured ribs into the intrathoracic cavity as the entire parietal pleura appears to be intact. -- cx neg (aerobic and anaerobic) --AFB smear neg; cx p -06/25 Chest US: Small right pleural effusion, decreased compared to the prior exam. No significant pocket for thoracentesis. -06/22 Chest US: Positive for right pleural effusion -5/[address]: 1. 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 No acute intracranial pathology is detected. CT C/abd/p:No evidence of acute injury to the abdominal or pelvic viscera. Somewhat limited study due to motion artifact. Cholelithiasis. Acute posterior medial lower right rib fractures. Moderate to large right pleural effusion, possibly containing an element of the hemothorax. Cardiomegaly.ASCVD. No pneumothoraces. Acute on chronic anemia -08/06/18 sp EGD: Normal upper endoscopy, status post biopsy. -path: mild chronic gastritis, no H. pylori identified pAfib hx of rib fractures Sinus node dysfunction s/p PPM (batter exchange July 2018) s/p KELI GERD polycythemia vera HLD MDD anemia NSTEMI s/p normal cardiac catheterization 2019 HTN KELVIN dCHF Plan: -Continue empiric Zosyn #10/10-14 (abx d#18) -07/03 SP Ceftriaxone #9 -f/u cx -Monitor CBC/CMP, temperatures -aspiration precautions -Pulm, CT sx, cards f/u -COVID 19 neg x2; ok to dc isolation Thank you for consulting [facility]. Will contiue to follow along with you. Discussed with RN Subjective Allergies: Coded Allergies: No Known Allergies (Unverified , 04/24/18) Subjective afebrile on 2l NC no leukocytosis Objective Vital Signs Last 24 Hour Vital Signs Date Time Temp Pulse Resp B/P (MAP) Pulse Ox O2 Delivery O2 Flow Rate FiO2 07/13/19 12:00 60 07/13/19 12:00 97.7 79 19 107/50 (69) 98 07/13/19 09:00 Nasal Cannula 2.0 Nasal Cannula 2.0 07/13/19 08:52 87 113/50 07/13/19 08:52 87 07/13/19 08:00 62 07/13/19 08:00 97.7 87 18 113/50 (71) 99 07/13/19 04:00 97.9 62 20 103/52 (69) 94 07/13/19 04:00 60 07/13/19 00:00 98.0 60 20 107/52 (70) 98 07/13/19 00:00 60 07/12/19 21:09 79 109/65 07/12/19 21:00 Nasal Cannula 2.0 Nasal Cannula 2.0 07/12/19 20:00 65 07/12/19 20:00 94 Nasal Cannula 2.0 28 07/12/19 20:00 97.5 72 20 109/59 (76) 94 07/12/19 16:00 97.6 81 19 101/64 (76) 98 07/12/19 16:00 65 Height (Feet): 5 Height (Inches): 0.00 Weight (Pounds): 140 Objective General Appearance: no acute distress, other - elderly female in NAD HEENT: normocephalic, atraumatic, anicteric Respiratory: decreased breath sounds Cardiovascular: normal rate Abdomen: normal bowel sounds, soft, non tender Extremities: no edema Neurologic: abnormal gait - unsteady, alert, responsive Musculoskeletal: atrophy Laboratory Tests Test 07/13/19 06:45 White Blood Count 6.3 K/UL (4.8-10.8) Red Blood Count 2.93 M/UL (4.20-5.40) L Hemoglobin 9.1 G/DL (12.0-16.0) L Hematocrit 26.2 % (37.0-47.0) L Mean Corpuscular Volume 90 FL (80-99) Mean Corpuscular Hemoglobin 31.0 PG (27.0-31.0) Mean Corpuscular Hemoglobin Concent 34.6 G/DL (32.0-36.0) Red Cell Distribution Width 17.3 % (11.6-14.8) H Platelet Count 157 K/UL (150-450) Mean Platelet Volume 9.9 FL (6.5-10.1) Neutrophils (%) (Auto) 84.2 % (45.0-75.0) H Lymphocytes (%) (Auto) 9.4 % (20.0-45.0) L Monocytes (%) (Auto) 3.4 % (1.0-10.0) Eosinophils (%) (Auto) 0.9 % (0.0-3.0) Basophils (%) (Auto) 2.1 % (0.0-2.0) H Sodium Level 142 MMOL/L (136-145) Potassium Level 4.5 MMOL/L (3.5-5.1) Chloride Level 108 MMOL/L (98-107) H Carbon Dioxide Level 30 MMOL/L (21-32) Anion Gap 4 mmol/L (5-15) L Blood Urea Nitrogen 16 mg/dL (7-18) Creatinine 0.8 MG/DL (0.55-1.30) Estimat Glomerular Filtration Rate > 60 mL/min (>60) Glucose Level 84 MG/DL (74-106) Calcium Level 8.4 MG/DL (8.5-10.1) L Current Medications Medications (Trade) Dose Ordered Sig/Escobar Route PRN Reason Start Time Stop Time Status Last Admin Dose Admin Acetaminophen (Tylenol) 650 mg Q4H PRN ORAL T>100.5 07/08/19 18:15 08/07/19 18:14 Acetaminophen/ Hydrocodone Bitart ([place] 10/325) 1 tab Q4H PRN ORAL Severe Pain (Pain Scale 7-10) 07/08/19 18:15 07/15/19 18:14 07/12/19 18:20 Acetaminophen/ Hydrocodone Bitart ([place] 5/325) 1 tab Q4H PRN ORAL Moderate Pain (Pain Scale 4-6) 07/08/19 18:15 07/15/19 18:14 Albuterol/ Ipratropium (Albuterol/ Ipratropium) 3 ml Q4H PRN HHN sob 07/08/19 18:15 07/13/19 18:14 Amiodarone HCl (Cordarone) 200 mg QHS ORAL 07/08/19 21:00 09/30/19 20:59 07/12/19 21:09 Dextrose (Dextrose 50%) 25 ml Q30M PRN IV Hypoglycemia 07/08/19 18:30 09/20/19 18:59 Dextrose (Dextrose 50%) 50 ml Q30M PRN IV Hypoglycemia 07/08/19 18:30 09/20/19 18:59 Digoxin (Lanoxin) 0.125 mg DAILY ORAL 07/09/19 09:00 10/03/19 08:59 07/13/19 08:52 Furosemide (Lasix) 20 mg DAILY IV 07/13/19 12:30 08/12/19 12:29 07/13/19 12:57 Heparin Sodium (Porcine) (Heparin 5000 units/ml) 5,000 units EVERY 12 HOURS SUBQ 07/08/19 21:00 08/19/19 20:59 07/12/19 21:11 Hydroxyzine HCl (Atarax) 25 mg Q8H PRN ORAL Itching 07/08/19 18:16 08/07/19 18:15 Lorazepam (Ativan 2mg/ml 1ml) 2 mg Q3H PRN IV For Anxiety 07/08/19 18:16 07/15/19 18:15 Metoprolol Tartrate (Lopressor) 50 mg EVERY 12 HOURS ORAL 07/08/19 21:00 09/30/19 20:59 07/13/19 08:52 Potassium Chloride (K-Dur) 40 meq TWICE A DAY ORAL 07/12/19 18:00 07/15/19 15:00 07/13/19 08:51 Alejandrina Arrieta M.D. Jul 13, 2019 15:18
--- NOTE | 2019-07-13 15:24 | NUR ---
*-*DISCHARGE PLANNED*-* PATIENT HAS BEEN REFERRED TO: [facility] P: [phone] S/W LIZABETH, WILL SERVICE PATIENT UPON DISCHARGE. Addendum: 07/13/19 at 1714 by JACOBO BISHOP CM *-*DISCHARGE PLANNED*-* PATIENT HAS BEEN ACCEPTED WITH [facility] P: [phone] S/W LIZABETH, WILL SERVICE PATIENT UPON DISCHARGE.
[2019-07-13 16:00] VITALS: BP 106/56
[2019-07-13] MEDS: Piperacillin/Tazobactam 3.375 GM in NS 110 ML IVPB SCH (17:16)
--- NOTE | 2019-07-13 18:01 | Internal Med Progress Note ---
Subjective Date of Service: Jul 13, 2019 Physician Name GraceRoshan Attending Physician Antonio Adrian MD Current Medications Medications (Trade) Dose Ordered Sig/Escobar Route PRN Reason Start Time Stop Time Status Last Admin Dose Admin Acetaminophen (Tylenol) 650 mg Q4H PRN ORAL T>100.5 07/08/19 18:15 08/07/19 18:14 Acetaminophen/ Hydrocodone Bitart ([place] 10/325) 1 tab Q4H PRN ORAL Severe Pain (Pain Scale 7-10) 07/08/19 18:15 07/15/19 18:14 07/12/19 18:20 Acetaminophen/ Hydrocodone Bitart ([place] 5/325) 1 tab Q4H PRN ORAL Moderate Pain (Pain Scale 4-6) 07/08/19 18:15 07/15/19 18:14 Albuterol/ Ipratropium (Albuterol/ Ipratropium) 3 ml Q4H PRN HHN sob 07/08/19 18:15 07/13/19 18:14 Amiodarone HCl (Cordarone) 200 mg QHS ORAL 07/08/19 21:00 09/30/19 20:59 07/12/19 21:09 Dextrose (Dextrose 50%) 25 ml Q30M PRN IV Hypoglycemia 07/08/19 18:30 09/20/19 18:59 Dextrose (Dextrose 50%) 50 ml Q30M PRN IV Hypoglycemia 07/08/19 18:30 09/20/19 18:59 Digoxin (Lanoxin) 0.125 mg DAILY ORAL 07/09/19 09:00 10/03/19 08:59 07/13/19 08:52 Furosemide (Lasix) 20 mg DAILY IV 07/13/19 12:30 08/12/19 12:29 07/13/19 12:57 Heparin Sodium (Porcine) (Heparin 5000 units/ml) 5,000 units EVERY 12 HOURS SUBQ 07/08/19 21:00 08/19/19 20:59 07/12/19 21:11 Hydroxyzine HCl (Atarax) 25 mg Q8H PRN ORAL Itching 07/08/19 18:16 08/07/19 18:15 Lorazepam (Ativan 2mg/ml 1ml) 2 mg Q3H PRN IV For Anxiety 07/08/19 18:16 07/15/19 18:15 Metoprolol Tartrate (Lopressor) 50 mg EVERY 12 HOURS ORAL 07/08/19 21:00 09/30/19 20:59 07/13/19 08:52 Piperacillin Sod/ Tazobactam Sod 3.375 gm/Sodium Chloride 110 ml @ 27.5 mls/hr Q8H IVPB 07/13/19 18:00 07/20/19 17:59 07/13/19 17:16 Potassium Chloride (K-Dur) 40 meq TWICE A DAY ORAL 07/12/19 18:00 07/15/19 15:00 07/13/19 08:51 Allergies: Coded Allergies: No Known Allergies (Unverified , 04/24/18) ROS Limited/Unobtainable: No Constitutional: Reports: no symptoms HEENT: Reports: no symptoms Cardiovascular: Reports: no symptoms Respiratory: Reports: shortness of breath Gastrointestinal/Abdominal: Reports: no symptoms Genitourinary: Reports: no symptoms Neurologic/Psychiatric: Reports: no symptoms Subjective 79 YO F admitted with atypical chest pain. Now severe anemia and acute congestive heart failure. Cover for Int Med-Dr Adrian. S/P video assisted thoracoscopic exploratory surgery 07/02/19. Tele Objective Last Vital Signs Date Time Temp Pulse Resp B/P (MAP) Pulse Ox O2 Delivery O2 Flow Rate FiO2 07/13/19 16:00 61 07/13/19 16:00 96.4 18 106/56 (73) 98 07/13/19 09:00 Nasal Cannula 2.0 Nasal Cannula 2.0 07/12/19 20:00 28 Laboratory Tests Test 07/13/19 06:45 White Blood Count 6.3 K/UL (4.8-10.8) Red Blood Count 2.93 M/UL (4.20-5.40) L Hemoglobin 9.1 G/DL (12.0-16.0) L Hematocrit 26.2 % (37.0-47.0) L Mean Corpuscular Volume 90 FL (80-99) Mean Corpuscular Hemoglobin 31.0 PG (27.0-31.0) Mean Corpuscular Hemoglobin Concent 34.6 G/DL (32.0-36.0) Red Cell Distribution Width 17.3 % (11.6-14.8) H Platelet Count 157 K/UL (150-450) Mean Platelet Volume 9.9 FL (6.5-10.1) Neutrophils (%) (Auto) 84.2 % (45.0-75.0) H Lymphocytes (%) (Auto) 9.4 % (20.0-45.0) L Monocytes (%) (Auto) 3.4 % (1.0-10.0) Eosinophils (%) (Auto) 0.9 % (0.0-3.0) Basophils (%) (Auto) 2.1 % (0.0-2.0) H Sodium Level 142 MMOL/L (136-145) Potassium Level 4.5 MMOL/L (3.5-5.1) Chloride Level 108 MMOL/L (98-107) H Carbon Dioxide Level 30 MMOL/L (21-32) Anion Gap 4 mmol/L (5-15) L Blood Urea Nitrogen 16 mg/dL (7-18) Creatinine 0.8 MG/DL (0.55-1.30) Estimat Glomerular Filtration Rate > 60 mL/min (>60) Glucose Level 84 MG/DL (74-106) Calcium Level 8.4 MG/DL (8.5-10.1) L Intake and Output 07/12/19 07/13/19 19:00 07:00 Intake Total 120 ml 400 ml Output Total 1200 ml 480 ml Balance -1080 ml -80 ml Intake Oral 120 ml 400 ml Output Urine Total 1200 ml 480 ml # Voids 3 Objective PHYSICAL EXAMINATION: GENERAL: The patient is well-developed and well-nourished female, in no apparent distress. HEENT: Eyes, pupils are equal and responsive to light and accommodation. Extraocular movements are intact. NECK: Supple without lymphadenopathy. CHEST: nasal canula; Lungs with coarse upper airway sounds without wheezes or rales. CARDIOVASCULAR: Regular rate. S1 and S2 normal without murmurs, rubs, or gallops. ABDOMEN: Soft, nontender, and nondistended. Positive bowel sounds. No evidence of hepatosplenomegaly. Currently, no rebound or guarding noted. EXTREMITIES: Negative for clubbing, cyanosis, or edema. RECTAL/GENITAL: Not performed. NEUROLOGIC: Cranial nerves II through XII are grossly intact without focal deficits. Assessment/Plan Assessment/Plan ASSESSMENT: This is an 79-year-old female. 1. Chest pain. 2. Fall injury. 3. Severe anemia. 4. Atrial fibrillation. 5. Polycythemia vera. 6. Hypertension. 7. Obstructive sleep apnea. 8. Coronary artery disease. 9. Hypercholesterolemia. 10. Congestive heart failure; MLX=[id number] 11. Right pleural hemothorax 12. Severe anemia 13. left pneumonia 14. Persistent hypokalemia-resolved 15. worsening pleural edema TREATMENT: 1. Chest pain. This may be secondary to fall injury. Initial troponin level was negative. Repeat troponin levels are pending. A Cardiology consultation has been obtained with Dr. Mainor Araujo. 2. Atrial fibrillation. As above, a Cardiology consultation has been obtained with Dr. Mainor Araujo. 3. Polycythemia vera. The patient is currently anemic. 4. Hypertension. Continue metoprolol as above. 5. Obstructive sleep apnea. 6. Coronary artery disease, status post myocardial infarction. As above, a Cardiology consultation has been obtained with Dr. Mainor Araujo. 7. Hypercholesteremia. 8. Congestive heart failure. 9. Pacemaker in situ. Pacemaker check is pending. 10. right thoracentesis pending 11. Discuss with patient regarding discharge planning, wants to go home, refused SNF. 12. CODE STATUS is full code. 13. Broad spectrum antibiotics with Rocephin IV. 14. Monitor cultures and laboratory. 15. DVT prophylaxis: SCD. 16. OOB to chair, PT Mobility 17. Dc Telemetry 18. S/P video assisted Thoracoscopic exploratory surgery 07/02/19; Thoracic surg=Dr. Malik 19. Right chest tube discontinued 07/07/19 20. S/P Transfusion 5 units PRBC 21. ABX=zosyn per ID=Dr Arrieta 22. lasix for diuresis Roshan Edwards MD Jul 13, 2019 18:01
--- NOTE | 2019-07-13 19:25 | NUR ---
HAND-OFF: Report given to Ally ROTH.
--- NOTE | 2019-07-13 19:40 | Cardiology Progress Note ---
Assessment/Plan Assessment/Plan 1. Paroxysmal episodes of atrial fibrillation. 2. Sick sinus syndrome status post pacemaker implantation with generator replacement in July of 2018. 3. Profound anemia. 4. History of polycythemia. 5. Probable urinary tract infection. 6. Fall. 7. Reported history of polycythemia vera. 8. Sleep apnea history. 9. Rib fracture 10 hemothorax s/p vats 11. Pulmonary htn 71 12. left lung collapse / opacifiction of left lung resolved 13. diarrhea 14. pulm infiltrate suspicion for covid 19 15. Hypotension s/ vats ct removed cxr personally reviewed bialt infiltrates tele personally reviewed sinus bp is better ef 55% d/w rni agree with diuretic watch cr adn bp Subjective Subjective atient in bed awake. O2 via NC in place, no SOB or acute distress. IV line intact. HOB elevated. Objective Last 24 Hour Vital Signs Date Time Temp Pulse Resp B/P (MAP) Pulse Ox O2 Delivery O2 Flow Rate FiO2 07/13/19 16:00 61 07/13/19 16:00 96.4 74 18 106/56 (73) 98 07/13/19 12:00 60 07/13/19 12:00 97.7 79 19 107/50 (69) 98 07/13/19 09:00 Nasal Cannula 2.0 Nasal Cannula 2.0 07/13/19 08:52 87 113/50 07/13/19 08:52 87 07/13/19 08:00 62 07/13/19 08:00 97.7 87 18 113/50 (71) 99 07/13/19 04:00 97.9 62 20 103/52 (69) 94 07/13/19 04:00 60 07/13/19 00:00 98.0 60 20 107/52 (70) 98 07/13/19 00:00 60 07/12/19 21:09 79 109/65 07/12/19 21:00 Nasal Cannula 2.0 Nasal Cannula 2.0 07/12/19 20:00 65 07/12/19 20:00 94 Nasal Cannula 2.0 28 07/12/19 20:00 97.5 72 20 109/59 (76) 94 Intake and Output 07/12/19 07/13/19 19:00 07:00 Intake Total 120 ml 400 ml Output Total 1200 ml 480 ml Balance -1080 ml -80 ml Intake Oral 120 ml 400 ml Output Urine Total 1200 ml 480 ml # Voids 3 Laboratory Tests Test 07/13/19 06:45 White Blood Count 6.3 K/UL (4.8-10.8) Red Blood Count 2.93 M/UL (4.20-5.40) L Hemoglobin 9.1 G/DL (12.0-16.0) L Hematocrit 26.2 % (37.0-47.0) L Mean Corpuscular Volume 90 FL (80-99) Mean Corpuscular Hemoglobin 31.0 PG (27.0-31.0) Mean Corpuscular Hemoglobin Concent 34.6 G/DL (32.0-36.0) Red Cell Distribution Width 17.3 % (11.6-14.8) H Platelet Count 157 K/UL (150-450) Mean Platelet Volume 9.9 FL (6.5-10.1) Neutrophils (%) (Auto) 84.2 % (45.0-75.0) H Lymphocytes (%) (Auto) 9.4 % (20.0-45.0) L Monocytes (%) (Auto) 3.4 % (1.0-10.0) Eosinophils (%) (Auto) 0.9 % (0.0-3.0) Basophils (%) (Auto) 2.1 % (0.0-2.0) H Sodium Level 142 MMOL/L (136-145) Potassium Level 4.5 MMOL/L (3.5-5.1) Chloride Level 108 MMOL/L (98-107) H Carbon Dioxide Level 30 MMOL/L (21-32) Anion Gap 4 mmol/L (5-15) L Blood Urea Nitrogen 16 mg/dL (7-18) Creatinine 0.8 MG/DL (0.55-1.30) Estimat Glomerular Filtration Rate > 60 mL/min (>60) Glucose Level 84 MG/DL (74-106) Calcium Level 8.4 MG/DL (8.5-10.1) L Objective per pulm dr mederos note LUNGS: Coarse rhonchi. Decreased BS on R CARDIOVASCULAR: Shows regular S1 and S2 with no gallop. ABDOMEN: Soft. EXTREMITIES: No pitting edema. Mainor Araujo MD Jul 13, 2019 19:40
--- NOTE | 2019-07-13 19:45 | NUR ---
NURSE NOTES: Received report from IRA Foster. Patient is alert and oriented x 3. Patient has oxygen @ 2 Lpm via nasal cannula saturating 94%. IV site is on Left wrist g-24, saline lock that is patent and intact. Patient is on regular, mechanical soft diet, + ensure three times a day, instructed and amenable. manager monitoring is on shows Atrial fibrillation. Patient is incontinent x 2, pure wick is in placed. On standard precaution. Safety measures are in placed, bed in lowest and lock position, side rails up x 2. Bed alarm is on. Call light and bedside table within reach. Will continue plan of care.
[2019-07-13 20:00] VITALS: BP 113/59
[2019-07-13] MEDS: Amiodarone 200mg tab ORAL SCH (22:22)
[2019-07-14] VITALS: BP 120/52
[2019-07-14] MEDS: Piperacillin/Tazobactam 3.375 GM in NS 110 ML IVPB SCH ×3 (02:07→17:42)
[2019-07-14 04:00] VITALS: BP 111/53
[2019-07-14 07:03] LABS: ANION GAP 4 mmol/L (5-15); BLOOD UREA NITROGEN 14 mg/dL (7-18); CALCIUM 8.5 MG/DL (8.5-10.1); CARBON DIOXIDE 31 MMOL/L (21-32); CHLORIDE 106 MMOL/L (98-107); CREATININE 0.8 MG/DL (0.55-1.30); POTASSIUM 4.6 MMOL/L (3.5-5.1); SODIUM 141 MMOL/L (136-145)
[2019-07-14 07:10] LABS: BASOPHILS % (AUTO) 2.7 % (0.0-2.0); EOSINOPHILS % (AUTO) 0.5 % (0.0-3.0); HEMATOCRIT 27.3 % (37.0-47.0); HEMOGLOBIN 9.2 G/DL (12.0-16.0); MEAN CORPUSCULAR VOLUME 91 FL (80-99); MONOCYTES % (AUTO) 3.8 % (1.0-10.0); PLATELET COUNT 168 K/UL (150-450); RED BLOOD COUNT 3.02 M/UL (4.20-5.40); RED CELL DISTRIBUTION WIDTH 16.7 % (11.6-14.8); WHITE BLOOD COUNT 6.3 K/UL (4.8-10.8)
--- NOTE | 2019-07-14 07:44 | NUR ---
HAND-OFF: Report given to IRA Archer. Patient is awake on stable condition without any complaints made at this time. RN made aware of oxygen tank at bedside. Plan of care endorsed.
--- NOTE | 2019-07-14 08:00 | NUR ---
NURSE NOTES: Pt in bed with call light next to patient, pt is alert and Ox3 Yi speaking, denies pain, pt is slightly incontinent with purewick in place, CXR shows right basilar Pleural Effusions, s/p-fall and thoracentesis, s/p chest tube with removal, discharge planning with [facility] for OT/PT/O2 use, PT already working with the patient. no s/s of distress or sob noted, patient on O2 2L sating at 96%
[2019-07-14 08:48] VITALS: BP 108/50
[2019-07-14] MEDS: Heparin 5000 units/ml inj SUBQ SCH ×2 (10:05→21:32)
[2019-07-14] MEDS: Metoprolol Tartrate 50mg tab ORAL SCH ×2 (10:05→21:33)
[2019-07-14] MEDS: Digoxin 0.125mg tab ORAL SCH (10:05)
[2019-07-14 11:46] VITALS: BP 102/55
--- NOTE | 2019-07-14 12:30 | Pulmonology Progress Note ---
Subjective ROS Limited/Unobtainable: No Interval Events: chest tube is out Constitutional: Reports: no symptoms HEENT: Repors: no symptoms Allergies: Coded Allergies: No Known Allergies (Unverified , 04/24/18) Objective Last 24 Hour Vital Signs Date Time Temp Pulse Resp B/P (MAP) Pulse Ox O2 Delivery O2 Flow Rate FiO2 07/14/19 11:46 97.2 72 18 102/55 (71) 98 07/14/19 10:05 75 108/50 07/14/19 10:05 75 07/14/19 08:54 Nasal Cannula 2.0 07/14/19 08:48 97.9 75 18 108/50 (69) 100 07/14/19 07:42 63 07/14/19 04:00 69 07/14/19 04:00 98.1 75 19 111/53 (72) 95 07/14/19 00:00 65 07/14/19 00:00 98.4 78 20 120/52 (74) 96 07/13/19 22:23 82 113/59 07/13/19 21:00 Nasal Cannula 2.0 Nasal Cannula 2.0 07/13/19 20:00 69 07/13/19 20:00 99.7 82 21 113/59 (77) 95 07/13/19 16:00 61 07/13/19 16:00 96.4 74 18 106/56 (73) 98 Intake and Output 07/13/19 07/14/19 18:59 06:59 Intake Total 420 ml Output Total 200 ml 750 ml Balance 220 ml -750 ml Intake Oral 420 ml Output Urine Total 200 ml 750 ml # Voids 1 3 # Bowel Movements 1 General Appearance: WD/WN HEENT: normocephalic, atraumatic Respiratory: chest wall non-tender, lungs clear, rhonchi - left, rhonchi - right Cardiovascular: normal peripheral pulses, normal rate Abdomen: normal bowel sounds, soft, non tender Genitourinary: normal external genitalia Extremities: no clubbing Skin: no rash Neurologic: nougat cutter machine II-XII grossly normal Lymphatic: no neck adenopathy Laboratory Tests 07/14/19 06:17: White Blood Count 6.3, Red Blood Count 3.02L, Hemoglobin 9.2L, Hematocrit 27.3L , Mean Corpuscular Volume 91, Mean Corpuscular Hemoglobin 30.5, Mean Corpuscular Hemoglobin Concent 33.6, Red Cell Distribution Width 16.7H, Platelet Count 168, Mean Platelet Volume 10.3H, Neutrophils (%) (Auto) 84.0H, Lymphocytes (%) (Auto) 9.0L, Monocytes (%) (Auto) 3.8, Eosinophils (%) (Auto) 0.5, Basophils (%) (Auto) 2.7H, Sodium Level 141, Potassium Level 4.6, Chloride Level 106, Carbon Dioxide Level 31, Anion Gap 4L, Blood Urea Nitrogen 14, Creatinine 0.8, Estimat Glomerular Filtration Rate > 60, Glucose Level 91, Calcium Level 8.5 Current Medications Medications (Trade) Dose Ordered Sig/Escobar Route PRN Reason Start Time Stop Time Status Last Admin Dose Admin Acetaminophen (Tylenol) 650 mg Q4H PRN ORAL T>100.5 07/08/19 18:15 08/07/19 18:14 Acetaminophen/ Hydrocodone Bitart ([place] 10/325) 1 tab Q4H PRN ORAL Severe Pain (Pain Scale 7-10) 07/08/19 18:15 07/15/19 18:14 07/12/19 18:20 Acetaminophen/ Hydrocodone Bitart ([place] 5/325) 1 tab Q4H PRN ORAL Moderate Pain (Pain Scale 4-6) 07/08/19 18:15 07/15/19 18:14 Amiodarone HCl (Cordarone) 200 mg QHS ORAL 07/08/19 21:00 09/30/19 20:59 07/13/19 22:22 Dextrose (Dextrose 50%) 25 ml Q30M PRN IV Hypoglycemia 07/08/19 18:30 09/20/19 18:59 Dextrose (Dextrose 50%) 50 ml Q30M PRN IV Hypoglycemia 07/08/19 18:30 09/20/19 18:59 Digoxin (Lanoxin) 0.125 mg DAILY ORAL 07/09/19 09:00 10/03/19 08:59 07/14/19 10:05 Furosemide (Lasix) 20 mg DAILY IV 07/13/19 12:30 08/12/19 12:29 07/14/19 10:05 Heparin Sodium (Porcine) (Heparin 5000 units/ml) 5,000 units EVERY 12 HOURS SUBQ 07/08/19 21:00 08/19/19 20:59 07/13/19 22:21 Hydroxyzine HCl (Atarax) 25 mg Q8H PRN ORAL Itching 07/08/19 18:16 08/07/19 18:15 Lorazepam (Ativan 2mg/ml 1ml) 2 mg Q3H PRN IV For Anxiety 07/08/19 18:16 07/15/19 18:15 Metoprolol Tartrate (Lopressor) 50 mg EVERY 12 HOURS ORAL 07/08/19 21:00 09/30/19 20:59 07/14/19 10:05 Piperacillin Sod/ Tazobactam Sod 3.375 gm/Sodium Chloride 110 ml @ 27.5 mls/hr Q8H IVPB 07/13/19 18:00 07/20/19 17:59 07/14/19 10:28 Potassium Chloride (K-Dur) 40 meq DAILY ORAL 07/14/19 09:00 07/15/19 15:00 07/14/19 10:05 Assessment/Plan Problems: (1) Pulmonary edema (2) RLL pneumonia (3) Collapse of left lung Assessment & Plan: resolved (4) Pleural effusion (5) Chronic anticoagulation (6) Ribs, multiple fractures (7) Atrial fibrillation (8) Pacemaker (9) COPD (chronic obstructive pulmonary disease) (10) KELVIN (obstructive sleep apnea) Assessment/Plan diuresing well, total intake and output is 12 liters positive restart lasix agian, cxr from 07/12 reviewed: increasing bilateral alveolar densities no new complains no short of breath, despite left collapse incentive spirometry chest PT only to left site afebrile, COVID negative times Roberto barbosa Mirali MD Jul 14, 2019 12:30
--- NOTE | 2019-07-14 12:34 | Cardiac Electrophysiology PN ---
Assessment/Plan Assessment/Plan 1. Status post [employer] pacer in 2010 and generator change by me in 2018 with normal function. 2. PAF with RVR. In SR/A paced on amiodarone 200 mg daily ,metoprolol 50 mg b.i.d. and Dig 0.125 po daily Off anticoagulation in view of severe anemia, needing blood transfusion. 3. Chest pain, felt to be musculoskeletal by Dr. Araujo. Ruled out for myocardial infarction. EF on 06/26/2019 was 55% 4. Urinary tract infection.On Abx 5. Hypertension. Continue metoprolol at this time. 6. Polycythemia vera, 7. Recurrent falls. . 8. Severe pulmonary hypertension. PA pressure of 71. 9. Hemothorax. S/P VATS by Dr Malik. Chest tube removed DW RN Subjective Subjective Intermittently A or V pacing on tele. Alert in NAD. On Abx Objective Last 24 Hour Vital Signs Date Time Temp Pulse Resp B/P (MAP) Pulse Ox O2 Delivery O2 Flow Rate FiO2 07/14/19 11:46 97.2 72 18 102/55 (71) 98 07/14/19 10:05 75 108/50 07/14/19 10:05 75 07/14/19 08:54 Nasal Cannula 2.0 07/14/19 08:48 97.9 75 18 108/50 (69) 100 07/14/19 07:42 63 07/14/19 04:00 69 07/14/19 04:00 98.1 75 19 111/53 (72) 95 07/14/19 00:00 65 07/14/19 00:00 98.4 78 20 120/52 (74) 96 07/13/19 22:23 82 113/59 07/13/19 21:00 Nasal Cannula 2.0 Nasal Cannula 2.0 07/13/19 20:00 69 07/13/19 20:00 99.7 82 21 113/59 (77) 95 07/13/19 16:00 61 07/13/19 16:00 96.4 74 18 106/56 (73) 98 Intake and Output 07/13/19 07/14/19 19:00 07:00 Intake Total 420 ml Output Total 200 ml 750 ml Balance 220 ml -750 ml Intake Oral 420 ml Output Urine Total 200 ml 750 ml # Voids 1 3 # Bowel Movements 1 Laboratory Tests Test 07/14/19 06:17 White Blood Count 6.3 K/UL (4.8-10.8) Red Blood Count 3.02 M/UL (4.20-5.40) L Hemoglobin 9.2 G/DL (12.0-16.0) L Hematocrit 27.3 % (37.0-47.0) L Mean Corpuscular Volume 91 FL (80-99) Mean Corpuscular Hemoglobin 30.5 PG (27.0-31.0) Mean Corpuscular Hemoglobin Concent 33.6 G/DL (32.0-36.0) Red Cell Distribution Width 16.7 % (11.6-14.8) H Platelet Count 168 K/UL (150-450) Mean Platelet Volume 10.3 FL (6.5-10.1) H Neutrophils (%) (Auto) 84.0 % (45.0-75.0) H Lymphocytes (%) (Auto) 9.0 % (20.0-45.0) L Monocytes (%) (Auto) 3.8 % (1.0-10.0) Eosinophils (%) (Auto) 0.5 % (0.0-3.0) Basophils (%) (Auto) 2.7 % (0.0-2.0) H Sodium Level 141 MMOL/L (136-145) Potassium Level 4.6 MMOL/L (3.5-5.1) Chloride Level 106 MMOL/L (98-107) Carbon Dioxide Level 31 MMOL/L (21-32) Anion Gap 4 mmol/L (5-15) L Blood Urea Nitrogen 14 mg/dL (7-18) Creatinine 0.8 MG/DL (0.55-1.30) Estimat Glomerular Filtration Rate > 60 mL/min (>60) Glucose Level 91 MG/DL (74-106) Calcium Level 8.5 MG/DL (8.5-10.1) Objective HEAD AND NECK: No JVD LUNGS: Coarse rhonchi. CARDIOVASCULAR: Shows regular S1 and S2 with no gallop. ABDOMEN: Soft. EXTREMITIES: No pitting edema. SKIN: The pacemaker in the left subclavian intact. River Freitas MD Jul 14, 2019 12:34
--- NOTE | 2019-07-14 15:45 | Internal Med Progress Note ---
Subjective Date of Service: Jul 14, 2019 Physician Name Roshan Edwards Attending Physician Antonio Adrian MD Current Medications Medications (Trade) Dose Ordered Sig/Escobar Route PRN Reason Start Time Stop Time Status Last Admin Dose Admin Acetaminophen (Tylenol) 650 mg Q4H PRN ORAL T>100.5 07/08/19 18:15 08/07/19 18:14 Acetaminophen/ Hydrocodone Bitart ([place] 10/325) 1 tab Q4H PRN ORAL Severe Pain (Pain Scale 7-10) 07/08/19 18:15 07/15/19 18:14 07/12/19 18:20 Acetaminophen/ Hydrocodone Bitart ([place] 5/325) 1 tab Q4H PRN ORAL Moderate Pain (Pain Scale 4-6) 07/08/19 18:15 07/15/19 18:14 Amiodarone HCl (Cordarone) 200 mg QHS ORAL 07/08/19 21:00 09/30/19 20:59 07/13/19 22:22 Dextrose (Dextrose 50%) 25 ml Q30M PRN IV Hypoglycemia 07/08/19 18:30 09/20/19 18:59 Dextrose (Dextrose 50%) 50 ml Q30M PRN IV Hypoglycemia 07/08/19 18:30 09/20/19 18:59 Digoxin (Lanoxin) 0.125 mg DAILY ORAL 07/09/19 09:00 10/03/19 08:59 07/14/19 10:05 Furosemide (Lasix) 20 mg DAILY IV 07/13/19 12:30 08/12/19 12:29 07/14/19 10:05 Heparin Sodium (Porcine) (Heparin 5000 units/ml) 5,000 units EVERY 12 HOURS SUBQ 07/08/19 21:00 08/19/19 20:59 07/13/19 22:21 Hydroxyzine HCl (Atarax) 25 mg Q8H PRN ORAL Itching 07/08/19 18:16 08/07/19 18:15 Lorazepam (Ativan 2mg/ml 1ml) 2 mg Q3H PRN IV For Anxiety 07/08/19 18:16 07/15/19 18:15 Metoprolol Tartrate (Lopressor) 50 mg EVERY 12 HOURS ORAL 07/08/19 21:00 09/30/19 20:59 07/14/19 10:05 Piperacillin Sod/ Tazobactam Sod 3.375 gm/Sodium Chloride 110 ml @ 27.5 mls/hr Q8H IVPB 07/13/19 18:00 07/20/19 17:59 07/14/19 10:28 Potassium Chloride (K-Dur) 40 meq DAILY ORAL 07/14/19 09:00 07/15/19 15:00 07/14/19 10:05 Allergies: Coded Allergies: No Known Allergies (Unverified , 04/24/18) ROS Limited/Unobtainable: No Constitutional: Reports: no symptoms HEENT: Reports: no symptoms Cardiovascular: Reports: no symptoms Respiratory: Reports: no symptoms Gastrointestinal/Abdominal: Reports: no symptoms Genitourinary: Reports: no symptoms Neurologic/Psychiatric: Reports: no symptoms Subjective 79 YO F admitted with atypical chest pain. Now severe anemia and acute congestive heart failure. Cover for Int Germán-Dr Adrian. S/P video assisted thoracoscopic exploratory surgery 07/02/19. Tele Objective Last Vital Signs Date Time Temp Pulse Resp B/P (MAP) Pulse Ox O2 Delivery O2 Flow Rate FiO2 07/14/19 11:47 61 07/14/19 11:46 97.2 18 102/55 (71) 98 07/14/19 08:54 Nasal Cannula 2.0 07/12/19 20:00 28 Laboratory Tests Test 07/14/19 06:17 White Blood Count 6.3 K/UL (4.8-10.8) Red Blood Count 3.02 M/UL (4.20-5.40) L Hemoglobin 9.2 G/DL (12.0-16.0) L Hematocrit 27.3 % (37.0-47.0) L Mean Corpuscular Volume 91 FL (80-99) Mean Corpuscular Hemoglobin 30.5 PG (27.0-31.0) Mean Corpuscular Hemoglobin Concent 33.6 G/DL (32.0-36.0) Red Cell Distribution Width 16.7 % (11.6-14.8) H Platelet Count 168 K/UL (150-450) Mean Platelet Volume 10.3 FL (6.5-10.1) H Neutrophils (%) (Auto) 84.0 % (45.0-75.0) H Lymphocytes (%) (Auto) 9.0 % (20.0-45.0) L Monocytes (%) (Auto) 3.8 % (1.0-10.0) Eosinophils (%) (Auto) 0.5 % (0.0-3.0) Basophils (%) (Auto) 2.7 % (0.0-2.0) H Sodium Level 141 MMOL/L (136-145) Potassium Level 4.6 MMOL/L (3.5-5.1) Chloride Level 106 MMOL/L (98-107) Carbon Dioxide Level 31 MMOL/L (21-32) Anion Gap 4 mmol/L (5-15) L Blood Urea Nitrogen 14 mg/dL (7-18) Creatinine 0.8 MG/DL (0.55-1.30) Estimat Glomerular Filtration Rate > 60 mL/min (>60) Glucose Level 91 MG/DL (74-106) Calcium Level 8.5 MG/DL (8.5-10.1) Intake and Output 07/13/19 07/14/19 19:00 07:00 Intake Total 420 ml Output Total 200 ml 750 ml Balance 220 ml -750 ml Intake Oral 420 ml Output Urine Total 200 ml 750 ml # Voids 1 3 # Bowel Movements 1 Objective PHYSICAL EXAMINATION: GENERAL: The patient is well-developed and well-nourished female, in no apparent distress. HEENT: Eyes, pupils are equal and responsive to light and accommodation. Extraocular movements are intact. NECK: Supple without lymphadenopathy. CHEST: nasal canula; Lungs with coarse upper airway sounds without wheezes or rales. CARDIOVASCULAR: Regular rate. S1 and S2 normal without murmurs, rubs, or gallops. ABDOMEN: Soft, nontender, and nondistended. Positive bowel sounds. No evidence of hepatosplenomegaly. Currently, no rebound or guarding noted. EXTREMITIES: Negative for clubbing, cyanosis, or edema. RECTAL/GENITAL: Not performed. NEUROLOGIC: Cranial nerves II through XII are grossly intact without focal deficits. Assessment/Plan Assessment/Plan ASSESSMENT: This is an 79-year-old female. 1. Chest pain. 2. Fall injury. 3. Severe anemia. 4. Atrial fibrillation. 5. Polycythemia vera. 6. Hypertension. 7. Obstructive sleep apnea. 8. Coronary artery disease. 9. Hypercholesterolemia. 10. Congestive heart failure; [id number] 11. Right pleural hemothorax 12. Severe anemia 13. left pneumonia 14. Persistent hypokalemia-resolved 15. worsening pleural edema TREATMENT: 1. Chest pain. This may be secondary to fall injury. Initial troponin level was negative. Repeat troponin levels are pending. A Cardiology consultation has been obtained with Dr. Mainor Araujo. 2. Atrial fibrillation. As above, a Cardiology consultation has been obtained with Dr. Mainor Araujo. 3. Polycythemia vera. The patient is currently anemic. 4. Hypertension. Continue metoprolol as above. 5. Obstructive sleep apnea. 6. Coronary artery disease, status post myocardial infarction. As above, a Cardiology consultation has been obtained with Dr. Mainor Araujo. 7. Hypercholesteremia. 8. Congestive heart failure. 9. Pacemaker in situ. Pacemaker check is pending. 10. right thoracentesis pending 11. Discuss with patient regarding discharge planning, wants to go home, refused SNF. 12. CODE STATUS is full code. 13. Broad spectrum antibiotics with Rocephin IV. 14. Monitor cultures and laboratory. 15. DVT prophylaxis: SCD. 16. OOB to chair, PT Mobility 17. Dc Telemetry 18. S/P video assisted Thoracoscopic exploratory surgery 07/02/19; Thoracic surg=Dr. Malik 19. Right chest tube discontinued 07/07/19 20. S/P Transfusion 5 units PRBC 21. ABX=S/P zosyn per ID=Dr Arrieta 22. lasix for diuresis Roshan Edwards MD Jul 14, 2019 15:45
--- NOTE | 2019-07-14 15:53 | Surgery Progress Note ---
Surgery Progress Note Subjective Procedure Performed right tube thoracostomy removal Symptoms: improved, pain absent, tolerating diet, passing flatus, BM Objective Last 24 Hour Vital Signs Date Time Temp Pulse Resp B/P (MAP) Pulse Ox O2 Delivery O2 Flow Rate FiO2 07/14/19 11:47 61 07/14/19 11:46 97.2 72 18 102/55 (71) 98 07/14/19 10:05 75 108/50 07/14/19 10:05 75 07/14/19 08:54 Nasal Cannula 2.0 07/14/19 08:48 97.9 75 18 108/50 (69) 100 07/14/19 07:42 63 07/14/19 04:00 69 07/14/19 04:00 98.1 75 19 111/53 (72) 95 07/14/19 00:00 65 07/14/19 00:00 98.4 78 20 120/52 (74) 96 07/13/19 22:23 82 113/59 07/13/19 21:00 Nasal Cannula 2.0 Nasal Cannula 2.0 07/13/19 20:00 69 07/13/19 20:00 99.7 82 21 113/59 (77) 95 07/13/19 16:00 61 07/13/19 16:00 96.4 74 18 106/56 (73) 98 I&O Intake and Output 07/13/19 07/14/19 18:59 06:59 Intake Total 420 ml Output Total 200 ml 750 ml Balance 220 ml -750 ml Intake Oral 420 ml Output Urine Total 200 ml 750 ml # Voids 1 3 # Bowel Movements 1 Dressing: dry Wound: clean Cardiovascular: RSR Respiratory: clear, decreased breath sounds Abdomen: soft, non-tender, present bowel sounds Extremities: no edema, no tenderness, no cyanosis Laboratory Tests Test 07/14/19 06:17 White Blood Count 6.3 K/UL (4.8-10.8) Red Blood Count 3.02 M/UL (4.20-5.40) L Hemoglobin 9.2 G/DL (12.0-16.0) L Hematocrit 27.3 % (37.0-47.0) L Mean Corpuscular Volume 91 FL (80-99) Mean Corpuscular Hemoglobin 30.5 PG (27.0-31.0) Mean Corpuscular Hemoglobin Concent 33.6 G/DL (32.0-36.0) Red Cell Distribution Width 16.7 % (11.6-14.8) H Platelet Count 168 K/UL (150-450) Mean Platelet Volume 10.3 FL (6.5-10.1) H Neutrophils (%) (Auto) 84.0 % (45.0-75.0) H Lymphocytes (%) (Auto) 9.0 % (20.0-45.0) L Monocytes (%) (Auto) 3.8 % (1.0-10.0) Eosinophils (%) (Auto) 0.5 % (0.0-3.0) Basophils (%) (Auto) 2.7 % (0.0-2.0) H Sodium Level 141 MMOL/L (136-145) Potassium Level 4.6 MMOL/L (3.5-5.1) Chloride Level 106 MMOL/L (98-107) Carbon Dioxide Level 31 MMOL/L (21-32) Anion Gap 4 mmol/L (5-15) L Blood Urea Nitrogen 14 mg/dL (7-18) Creatinine 0.8 MG/DL (0.55-1.30) Estimat Glomerular Filtration Rate > 60 mL/min (>60) Glucose Level 91 MG/DL (74-106) Calcium Level 8.5 MG/DL (8.5-10.1) Plan Problems: (1) Hematothorax Assessment & Plan: s/p VATS recovering okay for diet keep chest tube to suction AM CXR will monitor and remove tube when stable okay for chest tube to water seal cxr noted tube removed respiratory percussion and suction slowly improving d/c planning Interim reexpansion of the left lung. There is considerable parenchymal disease throughout the left lung, however. Interim removal of previously demonstrated right chest tube. No pneumothorax. There is some pleural thickening Versus fluid at the right lung base. There is extensive right lung parenchymal interstitial and alveolar disease which appears increased from the previous study. The heart size is normal. Left chest pacemaker again demonstrated. Impression: Interim right chest tube removal. No evidence of pneumothorax Worsening bilateral parenchymal infiltrates versus edema Right lateral basilar pleural thickening versus fluid Borderline prominent cardiac silhouette. There is interval improvement in previously noted edema/failure and bilateral multifocal infiltrates. Small bilateral pleural effusions. Pacemaker device. Remainder little changed. IMPRESSION: Control, interval improvement in previously noted edema/failure and bilateral multifocal infiltrates. Errol Estrada Jul 14, 2019 15:53
[2019-07-14 16:00] VITALS: BP 122/63
--- NOTE | 2019-07-14 16:40 | Cardiology Progress Note ---
Assessment/Plan Assessment/Plan 1. Paroxysmal episodes of atrial fibrillation. 2. Sick sinus syndrome status post pacemaker implantation with generator replacement in July of 2018. 3. Profound anemia. 4. History of polycythemia. 5. Probable urinary tract infection. 6. Fall. 7. Reported history of polycythemia vera. 8. Sleep apnea history. 9. Rib fracture 10 hemothorax s/p vats 11. Pulmonary htn 71 12. left lung collapse / opacifiction of left lung resolved 13. diarrhea 14. pulm infiltrate 15. Hypotension covid neg x2 s/ vats ct removed cxr personally reviewed bialt infiltrates tele personally reviewed sinus bp is ok despite diuretic ef 55% d/w rni agree with diuretic watch cr adn bp to keep neg as possible Subjective Cardiovascular: Denies: chest pain, lightheadedness, palpitations Respiratory: Reports: cough - min if any ; Denies: shortness of breath Gastrointestinal/Abdominal: Denies: abdominal pain Genitourinary: Denies: burning Objective Last 24 Hour Vital Signs Date Time Temp Pulse Resp B/P (MAP) Pulse Ox O2 Delivery O2 Flow Rate FiO2 07/14/19 16:00 96.6 82 122/63 (82) 07/14/19 11:47 61 07/14/19 11:46 97.2 72 18 102/55 (71) 98 07/14/19 10:05 75 108/50 07/14/19 10:05 75 07/14/19 08:54 Nasal Cannula 2.0 07/14/19 08:48 97.9 75 18 108/50 (69) 100 07/14/19 07:42 63 07/14/19 04:00 69 07/14/19 04:00 98.1 75 19 111/53 (72) 95 07/14/19 00:00 65 07/14/19 00:00 98.4 78 20 120/52 (74) 96 07/13/19 22:23 82 113/59 07/13/19 21:00 Nasal Cannula 2.0 Nasal Cannula 2.0 07/13/19 20:00 69 07/13/19 20:00 99.7 82 21 113/59 (77) 95 General Appearance: no apparent distress, alert Neck: supple Cardiovascular: regular rhythm Respiratory/Chest: decreased breath sounds - right base Abdomen: normal bowel sounds, non tender, soft Extremities: no swelling Intake and Output 07/13/19 07/14/19 19:00 07:00 Intake Total 420 ml Output Total 200 ml 750 ml Balance 220 ml -750 ml Intake Oral 420 ml Output Urine Total 200 ml 750 ml # Voids 1 3 # Bowel Movements 1 Laboratory Tests Test 07/14/19 06:17 White Blood Count 6.3 K/UL (4.8-10.8) Red Blood Count 3.02 M/UL (4.20-5.40) L Hemoglobin 9.2 G/DL (12.0-16.0) L Hematocrit 27.3 % (37.0-47.0) L Mean Corpuscular Volume 91 FL (80-99) Mean Corpuscular Hemoglobin 30.5 PG (27.0-31.0) Mean Corpuscular Hemoglobin Concent 33.6 G/DL (32.0-36.0) Red Cell Distribution Width 16.7 % (11.6-14.8) H Platelet Count 168 K/UL (150-450) Mean Platelet Volume 10.3 FL (6.5-10.1) H Neutrophils (%) (Auto) 84.0 % (45.0-75.0) H Lymphocytes (%) (Auto) 9.0 % (20.0-45.0) L Monocytes (%) (Auto) 3.8 % (1.0-10.0) Eosinophils (%) (Auto) 0.5 % (0.0-3.0) Basophils (%) (Auto) 2.7 % (0.0-2.0) H Sodium Level 141 MMOL/L (136-145) Potassium Level 4.6 MMOL/L (3.5-5.1) Chloride Level 106 MMOL/L (98-107) Carbon Dioxide Level 31 MMOL/L (21-32) Anion Gap 4 mmol/L (5-15) L Blood Urea Nitrogen 14 mg/dL (7-18) Creatinine 0.8 MG/DL (0.55-1.30) Estimat Glomerular Filtration Rate > 60 mL/min (>60) Glucose Level 91 MG/DL (74-106) Calcium Level 8.5 MG/DL (8.5-10.1) Objective per pulm dr mederos note LUNGS: Coarse rhonchi. Decreased BS on R CARDIOVASCULAR: Shows regular S1 and S2 with no gallop. ABDOMEN: Soft. EXTREMITIES: No pitting edema. Mainor Araujo MD Jul 14, 2019 16:40
--- NOTE | 2019-07-14 18:55 | NUR ---
HAND-OFF: Report given to Earline Coronel, sacral redness which is new mostly likely related to watery stool x2 today and wiping with cloth towels.
--- NOTE | 2019-07-14 19:35 | NUR ---
NURSE NOTES: Received report from IRA Archer. Patient is alert and oriented x 3. Patient has oxygen @ 2 Lpm via nasal cannula saturating 95%. IV site is on Left wrist g-24, saline lock that is patent and intact. Patient is on regular, mechanical soft diet, + ensure three times a day, instructed and amenable. athletic monitor is on shows SR with 1st degree HB, without chest pain nor any complaints made at this time. Patient is incontinent x 2, pure wick is in placed. On standard precaution. Safety measures are in placed, bed in lowest and lock position, side rails up x 2. Bed alarm is on. Call light and bedside table within reach. Will continue plan of care.
[2019-07-14 20:00] VITALS: BP 104/50
[2019-07-14] MEDS: Amiodarone 200mg tab ORAL SCH (21:33)
[2019-07-15] VITALS: BP 112/52
[2019-07-15] MEDS: Piperacillin/Tazobactam 3.375 GM in NS 110 ML IVPB SCH ×3 (02:03→17:17)
[2019-07-15 04:00] VITALS: BP 145/94
[2019-07-15 06:55] LABS: BASOPHILS % (AUTO) 2.2 % (0.0-2.0); EOSINOPHILS % (AUTO) 0.7 % (0.0-3.0); HEMATOCRIT 24.6 % (37.0-47.0); HEMOGLOBIN 8.8 G/DL (12.0-16.0); LYMPHOCYTES % (AUTO) 9.5 % (20.0-45.0); MEAN CORPUSCULAR VOLUME 88 FL (80-99); MONOCYTES % (AUTO) 3.2 % (1.0-10.0); NEUTROPHILS % (AUTO) 84.4 % (45.0-75.0); PLATELET COUNT 174 K/UL (150-450); RED CELL DISTRIBUTION WIDTH 16.2 % (11.6-14.8)
[2019-07-15 07:21] LABS: ALANINE AMINOTRANSFERASE < 6 U/L (12-78); ALBUMIN/GLOBULIN RATIO 0.6 (1.0-2.7); ALKALINE PHOSPHATASE 76 U/L (46-116); ANION GAP 4 mmol/L (5-15); ASPARTATE AMINO TRANSFERASE 15 U/L (15-37); BILIRUBIN,TOTAL 0.5 MG/DL (0.2-1.0); BLOOD UREA NITROGEN 16 mg/dL (7-18); CALCIUM 8.5 MG/DL (8.5-10.1); CARBON DIOXIDE 33 MMOL/L (21-32); CHLORIDE 105 MMOL/L (98-107); CREATININE 0.9 MG/DL (0.55-1.30); POTASSIUM 4.4 MMOL/L (3.5-5.1); SODIUM 141 MMOL/L (136-145)
--- NOTE | 2019-07-15 07:49 | NUR ---
HAND-OFF: Report given to IRA Scott. Patient is sleeping on stable condition. No complaints made at this time, RN made aware of the wound evaluation and consult. Plan of care endorsed.
--- NOTE | 2019-07-15 07:52 | NUR ---
NURSE NOTES: Skin assessment done, patient have stage 2 partial thickness pressure injury on sacral area. Entered wound evaluation and consult. Informed Dr. Adrian. Awaiting for call back.
[2019-07-15 08:00] VITALS: BP 105/51
--- NOTE | 2019-07-15 08:00 | NUR ---
NURSE NOTES: Received report from IRA Patten. Pt A/O x3 (Irish speaking), able to make needs known. Denies any pain, no s/sx of acute distress. Pt on 2L NC, breathing even and unlabored. IV site on L wrist patent and asymptomatic. Bed on lowest position, call light within reach. Will continue plan of care.
[2019-07-15] MEDS: Metoprolol Tartrate 50mg tab ORAL SCH ×2 (09:00→21:00)
[2019-07-15] MEDS: Digoxin 0.125mg tab ORAL SCH ×2 (09:00→09:25)
[2019-07-15] MEDS: Heparin 5000 units/ml inj SUBQ SCH ×2 (09:24→22:47)
--- NOTE | 2019-07-15 10:15 | NUR ---
RADIOLOGY DEPT., CHEST X-RAY DONE.-P.DYE
--- NOTE | 2019-07-15 11:19 | Diagnostic Imaging Report ---
Indication: Shortness of breath Technique: One view of the chest Comparison: 07/13/2019 Findings: Right greater than left infiltrates versus edema and small bilateral pleural effusions persist. There is increased infiltrate in the right upper lobe. Some atelectasis in the left midlung persists. Left chest pacemaker is again demonstrated. The heart is borderline enlarged. Impression: Increased right upper lobe infiltrates
--- NOTE | 2019-07-15 11:37 | Internal Med Progress Note ---
Subjective Date of Service: Jul 15, 2019 Physician Name Roshan Edwards Attending Physician Antonio Adrian MD Current Medications Medications (Trade) Dose Ordered Sig/Escobar Route PRN Reason Start Time Stop Time Status Last Admin Dose Admin Acetaminophen (Tylenol) 650 mg Q4H PRN ORAL T>100.5 07/08/19 18:15 08/07/19 18:14 Acetaminophen/ Hydrocodone Bitart ([place] 10/325) 1 tab Q4H PRN ORAL Severe Pain (Pain Scale 7-10) 07/08/19 18:15 07/15/19 18:14 07/12/19 18:20 Acetaminophen/ Hydrocodone Bitart ([place] 5/325) 1 tab Q4H PRN ORAL Moderate Pain (Pain Scale 4-6) 07/08/19 18:15 07/15/19 18:14 Amiodarone HCl (Cordarone) 200 mg QHS ORAL 07/08/19 21:00 09/30/19 20:59 07/14/19 21:33 Dextrose (Dextrose 50%) 25 ml Q30M PRN IV Hypoglycemia 07/08/19 18:30 09/20/19 18:59 Dextrose (Dextrose 50%) 50 ml Q30M PRN IV Hypoglycemia 07/08/19 18:30 09/20/19 18:59 Digoxin (Lanoxin) 0.125 mg DAILY ORAL 07/09/19 09:00 10/03/19 08:59 07/14/19 10:05 Furosemide (Lasix) 20 mg DAILY IV 07/13/19 12:30 08/12/19 12:29 07/14/19 10:05 Heparin Sodium (Porcine) (Heparin 5000 units/ml) 5,000 units EVERY 12 HOURS SUBQ 07/08/19 21:00 08/19/19 20:59 07/15/19 09:24 Hydroxyzine HCl (Atarax) 25 mg Q8H PRN ORAL Itching 07/08/19 18:16 08/07/19 18:15 Lorazepam (Ativan 2mg/ml 1ml) 2 mg Q3H PRN IV For Anxiety 07/08/19 18:16 07/15/19 18:15 Metoprolol Tartrate (Lopressor) 50 mg EVERY 12 HOURS ORAL 07/08/19 21:00 09/30/19 20:59 07/14/19 21:33 Piperacillin Sod/ Tazobactam Sod 3.375 gm/Sodium Chloride 110 ml @ 27.5 mls/hr Q8H IVPB 07/13/19 18:00 07/20/19 17:59 07/15/19 09:26 Potassium Chloride (K-Dur) 40 meq DAILY ORAL 07/14/19 09:00 07/15/19 15:00 07/15/19 09:25 Allergies: Coded Allergies: No Known Allergies (Unverified , 04/24/18) ROS Limited/Unobtainable: No Constitutional: Reports: no symptoms HEENT: Reports: no symptoms Cardiovascular: Reports: no symptoms Respiratory: Reports: no symptoms Gastrointestinal/Abdominal: Reports: no symptoms Genitourinary: Reports: no symptoms Neurologic/Psychiatric: Reports: no symptoms Subjective 79 YO F admitted with atypical chest pain. Now severe anemia and acute congestive heart failure. Cover for Int Germán-Dr Adrian. S/P video assisted thoracoscopic exploratory surgery 07/02/19. Tele Objective Last Vital Signs Date Time Temp Pulse Resp B/P (MAP) Pulse Ox O2 Delivery O2 Flow Rate FiO2 07/15/19 09:00 Nasal Cannula 2.0 07/15/19 09:00 60 105/51 07/15/19 08:00 97.7 18 100 07/12/19 20:00 28 Laboratory Tests Test 07/15/19 06:00 White Blood Count 5.0 K/UL (4.8-10.8) Red Blood Count 2.80 M/UL (4.20-5.40) L Hemoglobin 8.8 G/DL (12.0-16.0) L Hematocrit 24.6 % (37.0-47.0) L Mean Corpuscular Volume 88 FL (80-99) Mean Corpuscular Hemoglobin 31.5 PG (27.0-31.0) H Mean Corpuscular Hemoglobin Concent 35.8 G/DL (32.0-36.0) Red Cell Distribution Width 16.2 % (11.6-14.8) H Platelet Count 174 K/UL (150-450) Mean Platelet Volume 14.5 FL (6.5-10.1) H Neutrophils (%) (Auto) 84.4 % (45.0-75.0) H Lymphocytes (%) (Auto) 9.5 % (20.0-45.0) L Monocytes (%) (Auto) 3.2 % (1.0-10.0) Eosinophils (%) (Auto) 0.7 % (0.0-3.0) Basophils (%) (Auto) 2.2 % (0.0-2.0) H Sodium Level 141 MMOL/L (136-145) Potassium Level 4.4 MMOL/L (3.5-5.1) Chloride Level 105 MMOL/L (98-107) Carbon Dioxide Level 33 MMOL/L (21-32) H Anion Gap 4 mmol/L (5-15) L Blood Urea Nitrogen 16 mg/dL (7-18) Creatinine 0.9 MG/DL (0.55-1.30) Estimat Glomerular Filtration Rate > 60 mL/min (>60) Glucose Level 107 MG/DL (74-106) H Calcium Level 8.5 MG/DL (8.5-10.1) Total Bilirubin 0.5 MG/DL (0.2-1.0) Aspartate Amino Transf (AST/SGOT) 15 U/L (15-37) Alanine Aminotransferase (ALT/SGPT) < 6 U/L (12-78) L Alkaline Phosphatase 76 U/L (46-116) Pro-B-Type Natriuretic Peptide 2668 pg/mL (0-125) H Total Protein 5.6 G/DL (6.4-8.2) L Albumin 2.0 G/DL (3.4-5.0) L Globulin 3.6 g/dL Albumin/Globulin Ratio 0.6 (1.0-2.7) L Intake and Output 07/14/19 07/15/19 19:00 07:00 Intake Total 720 ml Output Total 1000 ml 300 ml Balance -280 ml -300 ml Intake Oral 720 ml Output Urine Total 1000 ml 300 ml # Voids 1 1 # Bowel Movements 3 Objective PHYSICAL EXAMINATION: GENERAL: The patient is well-developed and well-nourished female, in no apparent distress. HEENT: Eyes, pupils are equal and responsive to light and accommodation. Extraocular movements are intact. NECK: Supple without lymphadenopathy. CHEST: nasal canula; Lungs with coarse upper airway sounds without wheezes or rales. CARDIOVASCULAR: Regular rate. S1 and S2 normal without murmurs, rubs, or gallops. ABDOMEN: Soft, nontender, and nondistended. Positive bowel sounds. No evidence of hepatosplenomegaly. Currently, no rebound or guarding noted. EXTREMITIES: Negative for clubbing, cyanosis, or edema. RECTAL/GENITAL: Not performed. NEUROLOGIC: Cranial nerves II through XII are grossly intact without focal deficits. Assessment/Plan Assessment/Plan ASSESSMENT: This is an 79-year-old female. 1. Chest pain. 2. Fall injury. 3. Severe anemia. 4. Atrial fibrillation. 5. Polycythemia vera. 6. Hypertension. 7. Obstructive sleep apnea. 8. Coronary artery disease. 9. Hypercholesterolemia. 10. Congestive heart failure; [id number] 11. Right pleural hemothorax 12. Severe anemia 13. left pneumonia 14. Persistent hypokalemia-resolved 15. worsening pleural edema TREATMENT: 1. Chest pain. This may be secondary to fall injury. Initial troponin level was negative. Repeat troponin levels are pending. A Cardiology consultation has been obtained with Dr. Mainor Araujo. 2. Atrial fibrillation. As above, a Cardiology consultation has been obtained with Dr. Mainor Araujo. 3. Polycythemia vera. The patient is currently anemic. 4. Hypertension. Continue metoprolol as above. 5. Obstructive sleep apnea. 6. Coronary artery disease, status post myocardial infarction. As above, a Cardiology consultation has been obtained with Dr. Mainor Araujo. 7. Hypercholesteremia. 8. Congestive heart failure. 9. Pacemaker in situ. Pacemaker check is pending. 10. right thoracentesis pending 11. Discuss with patient regarding discharge planning, wants to go home, refused SNF. 12. CODE STATUS is full code. 13. Broad spectrum antibiotics with Rocephin IV. 14. Monitor cultures and laboratory. 15. DVT prophylaxis: SCD. 16. OOB to chair, PT Mobility 17. Dc Telemetry 18. S/P video assisted Thoracoscopic exploratory surgery 07/02/19; Thoracic surg=Dr. Malik 19. Right chest tube discontinued 07/07/19 20. S/P Transfusion 5 units PRBC 21. ABX=S/P zosyn per ID=Dr Arrieta 22. lasix for diuresis 22. Discharge planning Roshan Edwards MD Jul 15, 2019 11:37
--- NOTE | 2019-07-15 11:42 | NUR ---
PT WEEKLY PROGRESS NOTE Patient being seen by physical therapy for therapeutic exercises, bed mobility training, transfer training and safety training. Patient with limited participation despite encouragement and explanation of benefits. Patient requires min/mod assist for bed mobility and min assist for transfers with FWW. Patient demonstrates limited endurance for functional activities. Patient will benefit from continued skilled inpatient PT intervention to increase strength, functional endurance and mobility.
--- NOTE | 2019-07-15 11:45 | NUR ---
CASE MANAGEMENT:REVIEW 07/15/19 SI: RT HEMOTHORAX. S/P CHEST TUBE REMOVAL 07/08/19 COVID(-) CXR(+) INCREASED RUL INFILTRATES 97.7 60 18 105/51 100% ON 2L/NC IS: IV ZOSYN QHRS IV LASIX QD K-DUR PO QD DIGOXIN PO QD AMIODARONE PO QHS HEPARIN SQ Q12 LOPRESSOR PO Q12 : TELEMETRY STATUS DCP: FROM HOME PLAN: CXR TODAY SHOWS SIGNS OF WORSENING RUL INFILTRATES CONTINUE DIURESIS W/IV LASIX ORDERED HOME OXYGEN AND HOME HEALTH
--- NOTE | 2019-07-15 11:51 | NUR ---
DISCHARGE PLANNING ONCE CLEARED PATIENT WILL DISCHARGE HOME OXYGEN FROM "[facility]" IS AT THE BEDSIDE FOR PATIENT TO TAKE HOME PATIENT WAS REFERRED TO [facility]. THEY WILL SERVICE PATIENT AT TIME OF DISCHARGE
[2019-07-15 12:00] VITALS: BP 95/50
--- NOTE | 2019-07-15 12:33 | NUR ---
RD ASSESSMENT & RECOMMENDATIONS SEE CARE ACTIVITY FOR COMPLETE ASSESSMENT DAILY ESTIMATED NEEDS: Needs based on Cardiac/ 61kg 25-30kcal/kg kcals/kg 5230-5086 total kcals 1.25-1.5 g protein/kg 76-76 g total protein 20-25 mL/kg 2482-0291 total fluid mLs NUTRITION DIAGNOSIS: Decreased sodium needs r/t cardiac history and clinical status as evidenced by pt w/ CHF, elev BNP (7896-> 1958->8388-> 2668) CURRENT DIET:REGULAR, ms chopped PO DIET RECOMMENDATIONS: Maintain liberalized regular if w/ continued poor/variable PO ADDITIONAL RECOMMENDATIONS: 1) Daily accurate weights w/ diuretics (143lbs->131lbs->150lbs) Wt are widely variable, obtain a calibrated bed wt 2) LOW NA diet w/ PO intake consistently >50% 3) Ensure Enlive (chocolate per pt request) BID w/ meals 4) Monitor for hypoglycemia w/ poor PO- monitor need for added D5 5) Wound care: add DORIE BID + Vit C 250mg daily (rec WC eval) 6) replete lytes as needed.
--- NOTE | 2019-07-15 13:52 | Cardiac Electrophysiology PN ---
Assessment/Plan Assessment/Plan 1. Status post [employer] pacer in 2010 and generator change by me in 2018 with normal function. 2. PAF with RVR. In SR/A paced on amiodarone 200 mg daily ,metoprolol 50 mg b.i.d. and Dig 0.125 po daily Off anticoagulation for severe anemia, needing blood transfusion. 3. Chest pain, felt to be musculoskeletal by Dr. Araujo. Ruled out for myocardial infarction. EF on 06/26/2019 was 55% 4. Urinary tract infection.On Abx 5. Hypertension. Continue metoprolol at this time. 6. Polycythemia vera, 7. Recurrent falls. . 8. Severe pulmonary hypertension. PA pressure of 71. 9. Hemothorax. S/P VATS by Dr Malik. Chest tube removed DW RN Subjective Subjective Alert in NAD. On Abx. In Sr/Paced rhythm Objective Last 24 Hour Vital Signs Date Time Temp Pulse Resp B/P (MAP) Pulse Ox O2 Delivery O2 Flow Rate FiO2 07/15/19 12:00 97.5 61 20 95/50 (65) 98 07/15/19 11:31 60 07/15/19 09:00 Nasal Cannula 2.0 07/15/19 09:00 60 105/51 07/15/19 09:00 60 07/15/19 09:00 Nasal Cannula 2.0 07/15/19 08:00 97.7 60 18 105/51 (69) 100 07/15/19 07:45 60 07/15/19 04:00 98.2 92 17 145/94 (111) 99 07/15/19 04:00 60 07/15/19 00:00 98.1 62 16 112/52 (72) 98 07/15/19 00:00 60 07/14/19 21:33 79 115/59 07/14/19 21:00 Nasal Cannula 2.0 07/14/19 20:00 98.3 64 17 104/50 (68) 99 07/14/19 20:00 70 07/14/19 16:00 96.6 82 122/63 (82) 07/14/19 15:36 60 Intake and Output 07/14/19 07/15/19 19:00 07:00 Intake Total 720 ml Output Total 1000 ml 300 ml Balance -280 ml -300 ml Intake Oral 720 ml Output Urine Total 1000 ml 300 ml # Voids 1 1 # Bowel Movements 3 Laboratory Tests Test 07/15/19 06:00 White Blood Count 5.0 K/UL (4.8-10.8) Red Blood Count 2.80 M/UL (4.20-5.40) L Hemoglobin 8.8 G/DL (12.0-16.0) L Hematocrit 24.6 % (37.0-47.0) L Mean Corpuscular Volume 88 FL (80-99) Mean Corpuscular Hemoglobin 31.5 PG (27.0-31.0) H Mean Corpuscular Hemoglobin Concent 35.8 G/DL (32.0-36.0) Red Cell Distribution Width 16.2 % (11.6-14.8) H Platelet Count 174 K/UL (150-450) Mean Platelet Volume 14.5 FL (6.5-10.1) H Neutrophils (%) (Auto) 84.4 % (45.0-75.0) H Lymphocytes (%) (Auto) 9.5 % (20.0-45.0) L Monocytes (%) (Auto) 3.2 % (1.0-10.0) Eosinophils (%) (Auto) 0.7 % (0.0-3.0) Basophils (%) (Auto) 2.2 % (0.0-2.0) H Sodium Level 141 MMOL/L (136-145) Potassium Level 4.4 MMOL/L (3.5-5.1) Chloride Level 105 MMOL/L (98-107) Carbon Dioxide Level 33 MMOL/L (21-32) H Anion Gap 4 mmol/L (5-15) L Blood Urea Nitrogen 16 mg/dL (7-18) Creatinine 0.9 MG/DL (0.55-1.30) Estimat Glomerular Filtration Rate > 60 mL/min (>60) Glucose Level 107 MG/DL (74-106) H Calcium Level 8.5 MG/DL (8.5-10.1) Total Bilirubin 0.5 MG/DL (0.2-1.0) Aspartate Amino Transf (AST/SGOT) 15 U/L (15-37) Alanine Aminotransferase (ALT/SGPT) < 6 U/L (12-78) L Alkaline Phosphatase 76 U/L (46-116) Pro-B-Type Natriuretic Peptide 2668 pg/mL (0-125) H Total Protein 5.6 G/DL (6.4-8.2) L Albumin 2.0 G/DL (3.4-5.0) L Globulin 3.6 g/dL Albumin/Globulin Ratio 0.6 (1.0-2.7) L Objective HEAD AND NECK: No JVD LUNGS: Coarse rhonchi. CARDIOVASCULAR: Shows regular S1 and S2 with no gallop. ABDOMEN: Soft. EXTREMITIES: No pitting edema. SKIN: The pacemaker in the left subclavian intact. River Freitas MD Jul 15, 2019 13:52
--- NOTE | 2019-07-15 14:57 | Infectious Diseases Prog Note ---
Assessment/Plan Assessment/Plan Assessment: Low grade fever; intermittent- SP No leukocytosis -07/03 Bcx Neg -06/21 u/a wbc 15-20, nit neg, leuk+3; UCx <10 mixed urogenital contaminants PNA- COVID19 neg x2 -07/12 CXR: Increasing bilateral basilar infiltrates/edema and pleural effusions, over 2 days -07/08 SARS-COV2 PCR neg -07/07 CXR: Interim right chest tube removal. No evidence of pneumothorax. Worsening bilateral parenchymal infiltrates versus edema. Right lateral basilar pleural thickening versus fluid -07/05 CXR: . Slightly improved moderate left pleural effusion. Slightly improved left perihilar interstitial thickening and lower lung opacity. Minimally improved right interstitial thickening and perihilar and lower lobe opacities. Improving right chest wall emphysema. Stable right chest tube. -06/26 CXR: Pulmonary vascular congestion, similar to mildly increased from the prior exam. No significant change in the small right pleural effusion or subtle infiltrate in the right lung base. -06/25 SARS-COV2 PCR neg -06/23 CXR: Right basilar infiltrate with trace right effusion. s/p Mechanical fall Rib, abdominal pain- 2ry to R rib fractures and large R pleural effusion/ hemothorax ?Post-op pos-obstructive PNA -07/03 CXR: . Interval development of diffuse opacification of the left lung. This raises possibility of having developed a left mainstem bronchus obstruction with postobstructive atelectasis. Alternatively a very large left effusion or severe left-sided pneumonia could have similar appearance, although unlikely to have developed since the prior exam. -07/01 SP Flexible bronchoscopy. Right video-assisted thoracoscopic surgery. Intrapleural pneumolysis.Evacuation of right intrathoracic blood. Intercostal nerve block. --OR Findings: Minimal amount of mucopurulent secretion was lavaged and suctioned clear. Righ hemithorax: There was noted to be some adhesions There was noted to be no protrusion of any fractured ribs into the intrathoracic cavity as the entire parietal pleura appears to be intact. -- cx neg (aerobic and anaerobic) --AFB smear neg; cx p -06/25 Chest US: Small right pleural effusion, decreased compared to the prior exam. No significant pocket for thoracentesis. -06/22 Chest US: Positive for right pleural effusion -5/[address]: 1. 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 No acute intracranial pathology is detected. CT C/abd/p:No evidence of acute injury to the abdominal or pelvic viscera. Somewhat limited study due to motion artifact. Cholelithiasis. Acute posterior medial lower right rib fractures. Moderate to large right pleural effusion, possibly containing an element of the hemothorax. Cardiomegaly.ASCVD. No pneumothoraces. Acute on chronic anemia -08/06/18 sp EGD: Normal upper endoscopy, status post biopsy. -path: mild chronic gastritis, no H. pylori identified pAfib hx of rib fractures Sinus node dysfunction s/p PPM (batter exchange July 2018) s/p KELI GERD polycythemia vera HLD MDD anemia NSTEMI s/p normal cardiac catheterization 2019 HTN KELVIN dCHF Plan: -Continue empiric Zosyn #12/10-14 (abx d#20) -07/03 SP Ceftriaxone #9 -f/u cx -Monitor CBC/CMP, temperatures -aspiration precautions -Pulm, CT sx, cards f/u -COVID 19 neg x2; ok to dc isolation -sp cx Thank you for consulting [facility]. Will contiue to follow along with you. Discussed with RN Subjective Allergies: Coded Allergies: No Known Allergies (Unverified , 04/24/18) Subjective afebrile on 2l NC no leukocytosis Objective Vital Signs Last 24 Hour Vital Signs Date Time Temp Pulse Resp B/P (MAP) Pulse Ox O2 Delivery O2 Flow Rate FiO2 07/15/19 12:00 97.5 61 20 95/50 (65) 98 07/15/19 11:31 60 07/15/19 09:00 Nasal Cannula 2.0 07/15/19 09:00 60 105/51 07/15/19 09:00 60 07/15/19 09:00 Nasal Cannula 2.0 07/15/19 08:00 97.7 60 18 105/51 (69) 100 07/15/19 07:45 60 07/15/19 04:00 98.2 92 17 145/94 (111) 99 07/15/19 04:00 60 07/15/19 00:00 98.1 62 16 112/52 (72) 98 07/15/19 00:00 60 07/14/19 21:33 79 115/59 07/14/19 21:00 Nasal Cannula 2.0 07/14/19 20:00 98.3 64 17 104/50 (68) 99 07/14/19 20:00 70 07/14/19 16:00 96.6 82 122/63 (82) 07/14/19 15:36 60 Height (Feet): 5 Height (Inches): 0.00 Weight (Pounds): 150 Objective General Appearance: no acute distress, other - elderly female in NAD HEENT: normocephalic, atraumatic, anicteric Respiratory: decreased breath sounds Cardiovascular: normal rate Abdomen: normal bowel sounds, soft, non tender Extremities: no edema Neurologic: abnormal gait - unsteady, alert, responsive Musculoskeletal: atrophy Laboratory Tests Test 07/15/19 06:00 White Blood Count 5.0 K/UL (4.8-10.8) Red Blood Count 2.80 M/UL (4.20-5.40) L Hemoglobin 8.8 G/DL (12.0-16.0) L Hematocrit 24.6 % (37.0-47.0) L Mean Corpuscular Volume 88 FL (80-99) Mean Corpuscular Hemoglobin 31.5 PG (27.0-31.0) H Mean Corpuscular Hemoglobin Concent 35.8 G/DL (32.0-36.0) Red Cell Distribution Width 16.2 % (11.6-14.8) H Platelet Count 174 K/UL (150-450) Mean Platelet Volume 14.5 FL (6.5-10.1) H Neutrophils (%) (Auto) 84.4 % (45.0-75.0) H Lymphocytes (%) (Auto) 9.5 % (20.0-45.0) L Monocytes (%) (Auto) 3.2 % (1.0-10.0) Eosinophils (%) (Auto) 0.7 % (0.0-3.0) Basophils (%) (Auto) 2.2 % (0.0-2.0) H Sodium Level 141 MMOL/L (136-145) Potassium Level 4.4 MMOL/L (3.5-5.1) Chloride Level 105 MMOL/L (98-107) Carbon Dioxide Level 33 MMOL/L (21-32) H Anion Gap 4 mmol/L (5-15) L Blood Urea Nitrogen 16 mg/dL (7-18) Creatinine 0.9 MG/DL (0.55-1.30) Estimat Glomerular Filtration Rate > 60 mL/min (>60) Glucose Level 107 MG/DL (74-106) H Calcium Level 8.5 MG/DL (8.5-10.1) Total Bilirubin 0.5 MG/DL (0.2-1.0) Aspartate Amino Transf (AST/SGOT) 15 U/L (15-37) Alanine Aminotransferase (ALT/SGPT) < 6 U/L (12-78) L Alkaline Phosphatase 76 U/L (46-116) Pro-B-Type Natriuretic Peptide 2668 pg/mL (0-125) H Total Protein 5.6 G/DL (6.4-8.2) L Albumin 2.0 G/DL (3.4-5.0) L Globulin 3.6 g/dL Albumin/Globulin Ratio 0.6 (1.0-2.7) L Current Medications Medications (Trade) Dose Ordered Sig/Escobar Route PRN Reason Start Time Stop Time Status Last Admin Dose Admin Acetaminophen (Tylenol) 650 mg Q4H PRN ORAL T>100.5 07/08/19 18:15 08/07/19 18:14 Acetaminophen/ Hydrocodone Bitart (Mousie 10/325) 1 tab Q4H PRN ORAL Severe Pain (Pain Scale 7-10) 07/08/19 18:15 07/15/19 18:14 07/12/19 18:20 Acetaminophen/ Hydrocodone Bitart (Mousie 5/325) 1 tab Q4H PRN ORAL Moderate Pain (Pain Scale 4-6) 07/08/19 18:15 07/15/19 18:14 Amiodarone HCl (Cordarone) 200 mg QHS ORAL 07/08/19 21:00 09/30/19 20:59 07/14/19 21:33 Dextrose (Dextrose 50%) 25 ml Q30M PRN IV Hypoglycemia 07/08/19 18:30 09/20/19 18:59 Dextrose (Dextrose 50%) 50 ml Q30M PRN IV Hypoglycemia 07/08/19 18:30 09/20/19 18:59 Digoxin (Lanoxin) 0.125 mg DAILY ORAL 07/09/19 09:00 10/03/19 08:59 07/14/19 10:05 Furosemide (Lasix) 20 mg DAILY IV 07/13/19 12:30 08/12/19 12:29 07/14/19 10:05 Heparin Sodium (Porcine) (Heparin 5000 units/ml) 5,000 units EVERY 12 HOURS SUBQ 07/08/19 21:00 08/19/19 20:59 07/15/19 09:24 Hydroxyzine HCl (Atarax) 25 mg Q8H PRN ORAL Itching 07/08/19 18:16 08/07/19 18:15 Lorazepam (Ativan 2mg/ml 1ml) 2 mg Q3H PRN IV For Anxiety 07/08/19 18:16 07/15/19 18:15 Metoprolol Tartrate (Lopressor) 50 mg EVERY 12 HOURS ORAL 07/08/19 21:00 09/30/19 20:59 07/14/19 21:33 Piperacillin Sod/ Tazobactam Sod 3.375 gm/Sodium Chloride 110 ml @ 27.5 mls/hr Q8H IVPB 07/13/19 18:00 07/20/19 17:59 07/15/19 09:26 Potassium Chloride (K-Dur) 40 meq DAILY ORAL 07/14/19 09:00 07/15/19 15:00 07/15/19 09:25 Alejandrina Arrieta M.D. Jul 15, 2019 14:57
--- NOTE | 2019-07-15 15:49 | NUR ---
NURSE NOTES:WOUND CARE NOTES:Pt presented with Incontinence Associated dermatitis perineum and buttocks.non-blanching erythema with moisture intertrigo noted to cleft of buttocks.Perianal area,R and L buttocks, and bilat ischium are erythematous and denuded. Staff reported pt is incontinent and had diarrhea previous 2 days. Pt also observed to had moisture Intertrigo abdominal folds, R and L groin area. Non-Blanching erythema without induration or fluctuance R and L Heels. Pt did not verbalize,or exhibit any distress to indicate Pain when each heel individually palpated. Tx.Plan: Apply Moisture Barrier Paste to abdominal folds, bilat groin areas with each incontinence care. Apply Moisture Barrier Paste to Buttocks. Cover Sacral area with Optifoam drsg Change every 3 days and prn. Apply Cavilon Skin Barrier to each heel. Cover each heel with Optifoam drsg. Change every 7 days and prn. Reposition at least every 2 hours or as tolerated. Off-load heels with Pillow.
[2019-07-15 15:58] VITALS: BP 99/51
--- NOTE | 2019-07-15 17:09 | Cardiology Progress Note ---
Assessment/Plan Assessment/Plan 1. Paroxysmal episodes of atrial fibrillation. 2. Sick sinus syndrome status post pacemaker implantation with generator replacement in July of 2018. 3. Profound anemia. 4. History of polycythemia. 5. Probable urinary tract infection. 6. Fall. 7. Reported history of polycythemia vera. 8. Sleep apnea history. 9. Rib fracture 10 hemothorax s/p vats 11. Pulmonary htn 71 12. left lung collapse / opacifiction of left lung resolved 13. diarrhea 14. pulm infiltrate 15. Hypotension covid neg x2 s/ vats ct removed cxr personally reviewed bialt infiltrates tele personally reviewed sinus bp is lower post diuretic will hold ef 55% d/w rni Subjective Cardiovascular: Denies: chest pain, lightheadedness, palpitations Respiratory: Denies: cough, shortness of breath Gastrointestinal/Abdominal: Denies: abdominal pain Genitourinary: Denies: burning Objective Last 24 Hour Vital Signs Date Time Temp Pulse Resp B/P (MAP) Pulse Ox O2 Delivery O2 Flow Rate FiO2 07/15/19 15:58 97.7 70 18 99/51 (67) 100 07/15/19 15:16 68 07/15/19 12:00 97.5 61 20 95/50 (65) 98 07/15/19 11:31 60 07/15/19 09:00 Nasal Cannula 2.0 07/15/19 09:00 60 105/51 07/15/19 09:00 60 07/15/19 09:00 Nasal Cannula 2.0 07/15/19 08:00 97.7 60 18 105/51 (69) 100 07/15/19 07:45 60 07/15/19 04:00 98.2 92 17 145/94 (111) 99 07/15/19 04:00 60 07/15/19 00:00 98.1 62 16 112/52 (72) 98 07/15/19 00:00 60 07/14/19 21:33 79 115/59 07/14/19 21:00 Nasal Cannula 2.0 07/14/19 20:00 98.3 64 17 104/50 (68) 99 07/14/19 20:00 70 General Appearance: no apparent distress, alert Neck: supple Cardiovascular: normal rate Respiratory/Chest: crackles/rales Abdomen: normal bowel sounds, non tender, soft Extremities: no swelling Intake and Output 07/14/19 07/15/19 19:00 07:00 Intake Total 720 ml Output Total 1000 ml 300 ml Balance -280 ml -300 ml Intake Oral 720 ml Output Urine Total 1000 ml 300 ml # Voids 1 1 # Bowel Movements 3 Laboratory Tests Test 07/15/19 06:00 White Blood Count 5.0 K/UL (4.8-10.8) Red Blood Count 2.80 M/UL (4.20-5.40) L Hemoglobin 8.8 G/DL (12.0-16.0) L Hematocrit 24.6 % (37.0-47.0) L Mean Corpuscular Volume 88 FL (80-99) Mean Corpuscular Hemoglobin 31.5 PG (27.0-31.0) H Mean Corpuscular Hemoglobin Concent 35.8 G/DL (32.0-36.0) Red Cell Distribution Width 16.2 % (11.6-14.8) H Platelet Count 174 K/UL (150-450) Mean Platelet Volume 14.5 FL (6.5-10.1) H Neutrophils (%) (Auto) 84.4 % (45.0-75.0) H Lymphocytes (%) (Auto) 9.5 % (20.0-45.0) L Monocytes (%) (Auto) 3.2 % (1.0-10.0) Eosinophils (%) (Auto) 0.7 % (0.0-3.0) Basophils (%) (Auto) 2.2 % (0.0-2.0) H Sodium Level 141 MMOL/L (136-145) Potassium Level 4.4 MMOL/L (3.5-5.1) Chloride Level 105 MMOL/L (98-107) Carbon Dioxide Level 33 MMOL/L (21-32) H Anion Gap 4 mmol/L (5-15) L Blood Urea Nitrogen 16 mg/dL (7-18) Creatinine 0.9 MG/DL (0.55-1.30) Estimat Glomerular Filtration Rate > 60 mL/min (>60) Glucose Level 107 MG/DL (74-106) H Calcium Level 8.5 MG/DL (8.5-10.1) Total Bilirubin 0.5 MG/DL (0.2-1.0) Aspartate Amino Transf (AST/SGOT) 15 U/L (15-37) Alanine Aminotransferase (ALT/SGPT) < 6 U/L (12-78) L Alkaline Phosphatase 76 U/L (46-116) Pro-B-Type Natriuretic Peptide 2668 pg/mL (0-125) H Total Protein 5.6 G/DL (6.4-8.2) L Albumin 2.0 G/DL (3.4-5.0) L Globulin 3.6 g/dL Albumin/Globulin Ratio 0.6 (1.0-2.7) L Objective per pulm dr mederos note LUNGS: Coarse rhonchi. Decreased BS on R CARDIOVASCULAR: Shows regular S1 and S2 with no gallop. ABDOMEN: Soft. EXTREMITIES: No pitting edema. Mainor Araujo MD Jul 15, 2019 17:09
--- NOTE | 2019-07-15 19:30 | NUR ---
NURSE NOTES: Report received from Sonia ROTH. Patient is awake and alert x 3. Patient is primarily Syrian Speaking, but is able to make needs known. Patient is noted to be on 2 liters of via nasal canula. Patient denies chest pain and shortness of breath at this time. Endorsed to Satish ROTH that it was attempted to wean patient off oxygen. Patient had oxygen saturation of 88 % on room air. Sonia ROTH then placed patient back on nasal canula. Patient noted to have clean dry dressing on right upper flank region from chest tube insertion site. Plan is for patient to be discharged home with home health. Bed locked, in lowest position, and alarmed. Will continue to follow plan of care.
--- NOTE | 2019-07-15 19:51 | NUR ---
HAND-OFF: Report given to IRA Covarrubias. Pt in stable condition, endorsed plan of care.
[2019-07-15 20:00] VITALS: BP 100/50
--- NOTE | 2019-07-15 20:27 | Surgery Progress Note ---
Surgery Progress Note Subjective Procedure Performed right tube thoracostomy removal Symptoms: improved, tolerating diet, passing flatus Additional Comments increased RUL infiltrates IAD Objective Last 24 Hour Vital Signs Date Time Temp Pulse Resp B/P (MAP) Pulse Ox O2 Delivery O2 Flow Rate FiO2 07/15/19 15:58 97.7 70 18 99/51 (67) 100 07/15/19 15:16 68 07/15/19 12:00 97.5 61 20 95/50 (65) 98 07/15/19 11:31 60 07/15/19 09:00 Nasal Cannula 2.0 07/15/19 09:00 60 105/51 07/15/19 09:00 60 07/15/19 09:00 Nasal Cannula 2.0 07/15/19 08:00 97.7 60 18 105/51 (69) 100 07/15/19 07:45 60 07/15/19 04:00 98.2 92 17 145/94 (111) 99 07/15/19 04:00 60 07/15/19 00:00 98.1 62 16 112/52 (72) 98 07/15/19 00:00 60 07/14/19 21:33 79 115/59 07/14/19 21:00 Nasal Cannula 2.0 I&O Intake and Output 07/14/19 07/15/19 19:00 07:00 Intake Total 720 ml Output Total 1000 ml 300 ml Balance -280 ml -300 ml Intake Oral 720 ml Output Urine Total 1000 ml 300 ml # Voids 1 1 # Bowel Movements 3 Dressing: other Wound: other Drains: other Cardiovascular: RSR Respiratory: decreased breath sounds Abdomen: soft, present bowel sounds Extremities: no cyanosis Laboratory Tests Test 07/15/19 06:00 White Blood Count 5.0 K/UL (4.8-10.8) Red Blood Count 2.80 M/UL (4.20-5.40) L Hemoglobin 8.8 G/DL (12.0-16.0) L Hematocrit 24.6 % (37.0-47.0) L Mean Corpuscular Volume 88 FL (80-99) Mean Corpuscular Hemoglobin 31.5 PG (27.0-31.0) H Mean Corpuscular Hemoglobin Concent 35.8 G/DL (32.0-36.0) Red Cell Distribution Width 16.2 % (11.6-14.8) H Platelet Count 174 K/UL (150-450) Mean Platelet Volume 14.5 FL (6.5-10.1) H Neutrophils (%) (Auto) 84.4 % (45.0-75.0) H Lymphocytes (%) (Auto) 9.5 % (20.0-45.0) L Monocytes (%) (Auto) 3.2 % (1.0-10.0) Eosinophils (%) (Auto) 0.7 % (0.0-3.0) Basophils (%) (Auto) 2.2 % (0.0-2.0) H Sodium Level 141 MMOL/L (136-145) Potassium Level 4.4 MMOL/L (3.5-5.1) Chloride Level 105 MMOL/L (98-107) Carbon Dioxide Level 33 MMOL/L (21-32) H Anion Gap 4 mmol/L (5-15) L Blood Urea Nitrogen 16 mg/dL (7-18) Creatinine 0.9 MG/DL (0.55-1.30) Estimat Glomerular Filtration Rate > 60 mL/min (>60) Glucose Level 107 MG/DL (74-106) H Calcium Level 8.5 MG/DL (8.5-10.1) Total Bilirubin 0.5 MG/DL (0.2-1.0) Aspartate Amino Transf (AST/SGOT) 15 U/L (15-37) Alanine Aminotransferase (ALT/SGPT) < 6 U/L (12-78) L Alkaline Phosphatase 76 U/L (46-116) Pro-B-Type Natriuretic Peptide 2668 pg/mL (0-125) H Total Protein 5.6 G/DL (6.4-8.2) L Albumin 2.0 G/DL (3.4-5.0) L Globulin 3.6 g/dL Albumin/Globulin Ratio 0.6 (1.0-2.7) L Plan Problems: (1) Hematothorax Assessment & Plan: s/p VATS recovering okay for diet keep chest tube to suction AM CXR will monitor and remove tube when stable okay for chest tube to water seal cxr noted tube removed respiratory percussion and suction slowly improving d/c planning Interim reexpansion of the left lung. There is considerable parenchymal disease throughout the left lung, however. Interim removal of previously demonstrated right chest tube. No pneumothorax. There is some pleural thickening Versus fluid at the right lung base. There is extensive right lung parenchymal interstitial and alveolar disease which appears increased from the previous study. The heart size is normal. Left chest pacemaker again demonstrated. Impression: Interim right chest tube removal. No evidence of pneumothorax Worsening bilateral parenchymal infiltrates versus edema Right lateral basilar pleural thickening versus fluid Borderline prominent cardiac silhouette. There is interval improvement in previously noted edema/failure and bilateral multifocal infiltrates. Small bilateral pleural effusions. Pacemaker device. Remainder little changed. IMPRESSION: Control, interval improvement in previously noted edema/failure and bilateral multifocal infiltrates. Pt presented with Incontinence Associated dermatitis perineum and buttocks.non- blanching erythema with moisture intertrigo noted to cleft of buttocks.Perianal area,R and L buttocks, and bilat ischium are erythematous and denuded. Staff reported pt is incontinent and had diarrhea previous 2 days. Pt also observed to had moisture Intertrigo abdominal folds, R and L groin area. Non-Blanching erythema without induration or fluctuance R and L Heels. Pt did not verbalize,or exhibit any distress to indicate Pain when each heel individually palpated. Tx.Plan: Apply Moisture Barrier Paste to abdominal folds, bilat groin areas with each incontinence care. Apply Moisture Barrier Paste to Buttocks. Cover Sacral area with Optifoam drsg Change every 3 days and prn. Apply Cavilon Skin Barrier to each heel. Cover each heel with Optifoam drsg. Change every 7 days and prn. Reposition at least every 2 hours or as tolerated. Off-load heels with Pillow. Errol Estrada Jul 15, 2019 20:27
[2019-07-15] MEDS: Amiodarone 200mg tab ORAL SCH (22:46)
[2019-07-16] VITALS: BP 111/55
[2019-07-16] MEDS: Piperacillin/Tazobactam 3.375 GM in NS 110 ML IVPB SCH ×2 (01:55→09:43)
[2019-07-16 04:00] VITALS: BP 101/51
--- NOTE | 2019-07-16 06:55 | NUR ---
NURSE NOTES: Patient was complaining that optifoams were hurting heels bilaterally. Satish ROTH tried to reapply optifoam, but less tight. Patient continued to complain and stated that "I will find a way to take them off if you don't". Satish ROTH explained purpose of optifoam and risk of skin break down. Patient stated "that's fine, I want them off now". Optifoams removed from heels bilaterally. No open skin noted at this time.
[2019-07-16 07:08] LABS: BASOPHILS % (AUTO) 1.8 % (0.0-2.0); EOSINOPHILS % (AUTO) 0.6 % (0.0-3.0); HEMATOCRIT 23.7 % (37.0-47.0); MEAN CORPUSCULAR VOLUME 90 FL (80-99); MONOCYTES % (AUTO) 4.4 % (1.0-10.0); NEUTROPHILS % (AUTO) 80.3 % (45.0-75.0); PLATELET COUNT 152 K/UL (150-450); RED BLOOD COUNT 2.63 M/UL (4.20-5.40); RED CELL DISTRIBUTION WIDTH 16.4 % (11.6-14.8); WHITE BLOOD COUNT 3.9 K/UL (4.8-10.8)
[2019-07-16 07:24] LABS: ANION GAP 4 mmol/L (5-15); BLOOD UREA NITROGEN 15 mg/dL (7-18); CALCIUM 8.5 MG/DL (8.5-10.1); CARBON DIOXIDE 32 MMOL/L (21-32); CHLORIDE 105 MMOL/L (98-107); CREATININE 0.8 MG/DL (0.55-1.30); POTASSIUM 4.6 MMOL/L (3.5-5.1); SODIUM 141 MMOL/L (136-145)
--- NOTE | 2019-07-16 07:25 | NUR ---
HAND-OFF: Report given to Sonia ROTH. Endorsed that patient requested for optifoam to be removed from heels bilaterally. Endorsed that patient is requesting to know when she will be going home. Endorsed that patient was not able to be weaned off oxygen. Patient is in stable condition at this time.
[2019-07-16 08:00] VITALS: BP 109/50
--- NOTE | 2019-07-16 08:06 | NUR ---
NURSE NOTES: Received report from IRA Covarrubias. Observed pt sleeping, no s/sx of acute distress, breathing even and unlabored in 2L NC. Bed on lowest position, call light within reach. Will continue plan of care.
[2019-07-16] MEDS: Heparin 5000 units/ml inj SUBQ SCH ×2 (09:00→21:00)
[2019-07-16] MEDS: Metoprolol Tartrate 50mg tab ORAL SCH ×2 (09:00→21:00)
[2019-07-16] MEDS: Digoxin 0.125mg tab ORAL SCH (09:43)
--- NOTE | 2019-07-16 10:41 | NUR ---
NURSE NOTES: Informed Dr Arrieta that WBC is 3.9.
[2019-07-16 12:00] VITALS: BP 98/50
--- NOTE | 2019-07-16 13:23 | Pulmonology Progress Note ---
Subjective ROS Limited/Unobtainable: No Interval Events: late note for 07/14 Constitutional: Reports: no symptoms HEENT: Repors: no symptoms Allergies: Coded Allergies: No Known Allergies (Unverified , 04/24/18) Objective Last 24 Hour Vital Signs Date Time Temp Pulse Resp B/P (MAP) Pulse Ox O2 Delivery O2 Flow Rate FiO2 07/16/19 09:43 64 07/16/19 09:00 Nasal Cannula 2.0 07/16/19 09:00 64 109/50 07/16/19 08:00 98.1 64 20 109/50 (69) 98 07/16/19 07:46 61 07/16/19 04:00 63 07/16/19 04:00 98.0 68 20 101/51 (68) 100 07/16/19 00:00 99.8 70 18 111/55 (73) 98 07/16/19 00:00 65 07/15/19 21:00 Nasal Cannula 2.0 07/15/19 21:00 65 100/50 07/15/19 21:00 96 Nasal Cannula 2.0 28 07/15/19 20:00 68 07/15/19 20:00 98.0 65 19 100/50 (67) 100 07/15/19 15:58 97.7 70 18 99/51 (67) 100 07/15/19 15:16 68 Intake and Output 07/15/19 07/16/19 19:00 07:00 Intake Total 240 ml 82.5 ml Balance 240 ml 82.5 ml Intake Oral 240 ml IV Total 82.5 ml # Voids 3 2 # Bowel Movements 1 2 General Appearance: WD/WN HEENT: normocephalic, atraumatic Respiratory: chest wall non-tender, lungs clear, rhonchi - left, rhonchi - right Cardiovascular: normal peripheral pulses, normal rate Abdomen: normal bowel sounds, soft, non tender Genitourinary: normal external genitalia Extremities: no clubbing Skin: no rash 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 Lymphatic: no neck adenopathy Laboratory Tests 07/16/19 06:13: White Blood Count 3.9L, Red Blood Count 2.63L, Hemoglobin 8.0L, Hematocrit 23.7L , Mean Corpuscular Volume 90, Mean Corpuscular Hemoglobin 30.4, Mean Corpuscular Hemoglobin Concent 33.8, Red Cell Distribution Width 16.4H, Platelet Count 152, Mean Platelet Volume 12.0H, Neutrophils (%) (Auto) 80.3H, Lymphocytes (%) (Auto) 13.0L, Monocytes (%) (Auto) 4.4, Eosinophils (%) (Auto) 0.6, Basophils (%) (Auto) 1.8, Sodium Level 141, Potassium Level 4.6, Chloride Level 105, Carbon Dioxide Level 32, Anion Gap 4L, Blood Urea Nitrogen 15, Creatinine 0.8, Estimat Glomerular Filtration Rate > 60, Glucose Level 87, Calcium Level 8.5 Current Medications Medications (Trade) Dose Ordered Sig/Escobar Route PRN Reason Start Time Stop Time Status Last Admin Dose Admin Acetaminophen (Tylenol) 650 mg Q4H PRN ORAL T>100.5 07/08/19 18:15 08/07/19 18:14 Amiodarone HCl (Cordarone) 200 mg QHS ORAL 07/08/19 21:00 09/30/19 20:59 07/15/19 22:46 Dextrose (Dextrose 50%) 25 ml Q30M PRN IV Hypoglycemia 07/08/19 18:30 09/20/19 18:59 Dextrose (Dextrose 50%) 50 ml Q30M PRN IV Hypoglycemia 07/08/19 18:30 09/20/19 18:59 Digoxin (Lanoxin) 0.125 mg DAILY ORAL 07/09/19 09:00 10/03/19 08:59 07/16/19 09:43 Furosemide (Lasix) 20 mg DAILY IV 07/13/19 12:30 08/12/19 12:29 07/14/19 10:05 Heparin Sodium (Porcine) (Heparin 5000 units/ml) 5,000 units EVERY 12 HOURS SUBQ 07/08/19 21:00 08/19/19 20:59 07/16/19 09:00 Hydroxyzine HCl (Atarax) 25 mg Q8H PRN ORAL Itching 07/08/19 18:16 08/07/19 18:15 Metoprolol Tartrate (Lopressor) 50 mg EVERY 12 HOURS ORAL 07/08/19 21:00 09/30/19 20:59 07/14/19 21:33 Piperacillin Sod/ Tazobactam Sod 3.375 gm/Sodium Chloride 110 ml @ 27.5 mls/hr Q8H IVPB 07/13/19 18:00 07/20/19 17:59 07/16/19 09:43 Assessment/Plan Problems: (1) Pulmonary edema (2) RLL pneumonia (3) Collapse of left lung Assessment & Plan: resolved (4) Pleural effusion (5) Chronic anticoagulation (6) Ribs, multiple fractures (7) Atrial fibrillation (8) Pacemaker (9) COPD (chronic obstructive pulmonary disease) (10) KELVIN (obstructive sleep apnea) Assessment/Plan diuresing well, total intake and output is 12 liters positive transfuse one more prbc cxr from 07/14: Increased right upper lobe infiltrates no new complains PRBC one unit today incentive spirometry chest PT only to left site afebrile, COVID negative times Roberto barbosa Mirali MD Jul 16, 2019 13:23
--- NOTE | 2019-07-16 14:23 | Infectious Diseases Prog Note ---
Assessment/Plan Assessment/Plan Assessment: Low grade fever; intermittent- SP No leukocytosis> mild leukopenia -07/03 Bcx Neg -06/21 u/a wbc 15-20, nit neg, leuk+3; UCx <10 mixed urogenital contaminants PNA- COVID19 neg x2 -07/14 CXR: Increased right upper lobe infiltrates -07/12 CXR: Increasing bilateral basilar infiltrates/edema and pleural effusions, over 2 days -07/08 SARS-COV2 PCR neg -07/07 CXR: Interim right chest tube removal. No evidence of pneumothorax. Worsening bilateral parenchymal infiltrates versus edema. Right lateral basilar pleural thickening versus fluid -07/05 CXR: . Slightly improved moderate left pleural effusion. Slightly improved left perihilar interstitial thickening and lower lung opacity. Minimally improved right interstitial thickening and perihilar and lower lobe opacities. Improving right chest wall emphysema. Stable right chest tube. -06/26 CXR: Pulmonary vascular congestion, similar to mildly increased from the prior exam. No significant change in the small right pleural effusion or subtle infiltrate in the right lung base. -06/25 SARS-COV2 PCR neg -06/23 CXR: Right basilar infiltrate with trace right effusion. s/p Mechanical fall Rib, abdominal pain- 2ry to R rib fractures and large R pleural effusion/ hemothorax ?Post-op pos-obstructive PNA -07/03 CXR: . Interval development of diffuse opacification of the left lung. This raises possibility of having developed a left mainstem bronchus obstruction with postobstructive atelectasis. Alternatively a very large left effusion or severe left-sided pneumonia could have similar appearance, although unlikely to have developed since the prior exam. -07/01 SP Flexible bronchoscopy. Right video-assisted thoracoscopic surgery. Intrapleural pneumolysis.Evacuation of right intrathoracic blood. Intercostal nerve block. --OR Findings: Minimal amount of mucopurulent secretion was lavaged and suctioned clear. Righ hemithorax: There was noted to be some adhesions There was noted to be no protrusion of any fractured ribs into the intrathoracic cavity as the entire parietal pleura appears to be intact. -- cx neg (aerobic and anaerobic) --AFB smear neg; cx p -06/25 Chest US: Small right pleural effusion, decreased compared to the prior exam. No significant pocket for thoracentesis. -06/22 Chest US: Positive for right pleural effusion -06/[address]: 1. 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 No acute intracranial pathology is detected. CT C/abd/p:No evidence of acute injury to the abdominal or pelvic viscera. Somewhat limited study due to motion artifact. Cholelithiasis. Acute posterior medial lower right rib fractures. Moderate to large right pleural effusion, possibly containing an element of the hemothorax. Cardiomegaly.ASCVD. No pneumothoraces. Acute on chronic anemia -08/06/18 sp EGD: Normal upper endoscopy, status post biopsy. -path: mild chronic gastritis, no H. pylori identified pAfib hx of rib fractures Sinus node dysfunction s/p PPM (batter exchange July 2018) s/p KELI GERD polycythemia vera HLD MDD anemia NSTEMI s/p normal cardiac catheterization 2019 HTN KELVIN dCHF Plan: -Switch empiric Zosyn #13/14 (abx d#21) to PO Cefdinir -07/03 SP Ceftriaxone #9 -f/u cx -Monitor CBC/CMP, temperatures -aspiration precautions -Pulm, CT sx, cards f/u -COVID 19 neg x2; ok to dc isolation -sp cx Thank you for consulting [facility]. Will contiue to follow along with you. Discussed with RN Subjective Allergies: Coded Allergies: No Known Allergies (Unverified , 04/24/18) Subjective afebrile on 2l NC mild leukopenia Objective Vital Signs Last 24 Hour Vital Signs Date Time Temp Pulse Resp B/P (MAP) Pulse Ox O2 Delivery O2 Flow Rate FiO2 07/16/19 12:00 97.5 64 20 98/50 (66) 98 07/16/19 11:32 60 07/16/19 09:43 64 07/16/19 09:00 Nasal Cannula 2.0 07/16/19 09:00 64 109/50 07/16/19 08:00 98.1 64 20 109/50 (69) 98 07/16/19 07:46 61 07/16/19 04:00 63 07/16/19 04:00 98.0 68 20 101/51 (68) 100 07/16/19 00:00 99.8 70 18 111/55 (73) 98 07/16/19 00:00 65 07/15/19 21:00 Nasal Cannula 2.0 07/15/19 21:00 65 100/50 07/15/19 21:00 96 Nasal Cannula 2.0 28 07/15/19 20:00 68 07/15/19 20:00 98.0 65 19 100/50 (67) 100 07/15/19 15:58 97.7 70 18 99/51 (67) 100 07/15/19 15:16 68 Height (Feet): 5 Height (Inches): 0.00 Weight (Pounds): 150 Objective General Appearance: no acute distress, other - elderly female in NAD HEENT: normocephalic, atraumatic, anicteric Respiratory: decreased breath sounds Cardiovascular: normal rate Abdomen: normal bowel sounds, soft, non tender Extremities: no edema Neurologic: abnormal gait - unsteady, alert, responsive Musculoskeletal: atrophy Laboratory Tests Test 07/16/19 06:13 White Blood Count 3.9 K/UL (4.8-10.8) L Red Blood Count 2.63 M/UL (4.20-5.40) L Hemoglobin 8.0 G/DL (12.0-16.0) L Hematocrit 23.7 % (37.0-47.0) L Mean Corpuscular Volume 90 FL (80-99) Mean Corpuscular Hemoglobin 30.4 PG (27.0-31.0) Mean Corpuscular Hemoglobin Concent 33.8 G/DL (32.0-36.0) Red Cell Distribution Width 16.4 % (11.6-14.8) H Platelet Count 152 K/UL (150-450) Mean Platelet Volume 12.0 FL (6.5-10.1) H Neutrophils (%) (Auto) 80.3 % (45.0-75.0) H Lymphocytes (%) (Auto) 13.0 % (20.0-45.0) L Monocytes (%) (Auto) 4.4 % (1.0-10.0) Eosinophils (%) (Auto) 0.6 % (0.0-3.0) Basophils (%) (Auto) 1.8 % (0.0-2.0) Sodium Level 141 MMOL/L (136-145) Potassium Level 4.6 MMOL/L (3.5-5.1) Chloride Level 105 MMOL/L (98-107) Carbon Dioxide Level 32 MMOL/L (21-32) Anion Gap 4 mmol/L (5-15) L Blood Urea Nitrogen 15 mg/dL (7-18) Creatinine 0.8 MG/DL (0.55-1.30) Estimat Glomerular Filtration Rate > 60 mL/min (>60) Glucose Level 87 MG/DL (74-106) Calcium Level 8.5 MG/DL (8.5-10.1) Current Medications Medications (Trade) Dose Ordered Sig/Escobar Route PRN Reason Start Time Stop Time Status Last Admin Dose Admin Acetaminophen (Tylenol) 650 mg Q4H PRN ORAL T>100.5 07/08/19 18:15 08/07/19 18:14 Amiodarone HCl (Cordarone) 200 mg QHS ORAL 07/08/19 21:00 09/30/19 20:59 07/15/19 22:46 Dextrose (Dextrose 50%) 25 ml Q30M PRN IV Hypoglycemia 07/08/19 18:30 09/20/19 18:59 Dextrose (Dextrose 50%) 50 ml Q30M PRN IV Hypoglycemia 07/08/19 18:30 09/20/19 18:59 Digoxin (Lanoxin) 0.125 mg DAILY ORAL 07/09/19 09:00 10/03/19 08:59 07/16/19 09:43 Furosemide (Lasix) 20 mg DAILY IV 07/13/19 12:30 08/12/19 12:29 07/14/19 10:05 Heparin Sodium (Porcine) (Heparin 5000 units/ml) 5,000 units EVERY 12 HOURS SUBQ 07/08/19 21:00 08/19/19 20:59 07/16/19 09:00 Hydroxyzine HCl (Atarax) 25 mg Q8H PRN ORAL Itching 07/08/19 18:16 08/07/19 18:15 Metoprolol Tartrate (Lopressor) 50 mg EVERY 12 HOURS ORAL 07/08/19 21:00 09/30/19 20:59 07/14/19 21:33 Piperacillin Sod/ Tazobactam Sod 3.375 gm/Sodium Chloride 110 ml @ 27.5 mls/hr Q8H IVPB 07/13/19 18:00 07/20/19 17:59 07/16/19 09:43 Alejandrina Arrieta M.D. Jul 16, 2019 14:23
--- NOTE | 2019-07-16 15:10 | Internal Med Progress Note ---
Subjective Date of Service: Jul 16, 2019 Physician Name Roshan Edwards Attending Physician Antonio Adrian MD Current Medications Medications (Trade) Dose Ordered Sig/Escobar Route PRN Reason Start Time Stop Time Status Last Admin Dose Admin Acetaminophen (Tylenol) 650 mg Q4H PRN ORAL T>100.5 07/08/19 18:15 08/07/19 18:14 Amiodarone HCl (Cordarone) 200 mg QHS ORAL 07/08/19 21:00 09/30/19 20:59 07/15/19 22:46 Cefdinir (Cefdinir) 300 mg Q12HR ORAL 07/16/19 18:00 07/23/19 17:59 Dextrose (Dextrose 50%) 25 ml Q30M PRN IV Hypoglycemia 07/08/19 18:30 09/20/19 18:59 Dextrose (Dextrose 50%) 50 ml Q30M PRN IV Hypoglycemia 07/08/19 18:30 09/20/19 18:59 Digoxin (Lanoxin) 0.125 mg DAILY ORAL 07/09/19 09:00 10/03/19 08:59 07/16/19 09:43 Furosemide (Lasix) 20 mg DAILY IV 07/13/19 12:30 08/12/19 12:29 07/14/19 10:05 Heparin Sodium (Porcine) (Heparin 5000 units/ml) 5,000 units EVERY 12 HOURS SUBQ 07/08/19 21:00 08/19/19 20:59 07/16/19 09:00 Hydroxyzine HCl (Atarax) 25 mg Q8H PRN ORAL Itching 07/08/19 18:16 08/07/19 18:15 Metoprolol Tartrate (Lopressor) 50 mg EVERY 12 HOURS ORAL 07/08/19 21:00 09/30/19 20:59 07/14/19 21:33 Allergies: Coded Allergies: No Known Allergies (Unverified , 04/24/18) ROS Limited/Unobtainable: No Constitutional: Reports: no symptoms HEENT: Reports: no symptoms Cardiovascular: Reports: no symptoms Respiratory: Reports: no symptoms Gastrointestinal/Abdominal: Reports: no symptoms Genitourinary: Reports: no symptoms Neurologic/Psychiatric: Reports: no symptoms Subjective 79 YO F admitted with atypical chest pain. Now severe anemia and acute congestive heart failure. Cover for Int Med-Dr Adrian. S/P video assisted thoracoscopic exploratory surgery 07/02/19. Tele Objective Last Vital Signs Date Time Temp Pulse Resp B/P (MAP) Pulse Ox O2 Delivery O2 Flow Rate FiO2 07/16/19 12:00 97.5 64 20 98/50 (66) 98 07/16/19 09:00 Nasal Cannula 2.0 07/15/19 21:00 28 Laboratory Tests Test 07/16/19 06:13 White Blood Count 3.9 K/UL (4.8-10.8) L Red Blood Count 2.63 M/UL (4.20-5.40) L Hemoglobin 8.0 G/DL (12.0-16.0) L Hematocrit 23.7 % (37.0-47.0) L Mean Corpuscular Volume 90 FL (80-99) Mean Corpuscular Hemoglobin 30.4 PG (27.0-31.0) Mean Corpuscular Hemoglobin Concent 33.8 G/DL (32.0-36.0) Red Cell Distribution Width 16.4 % (11.6-14.8) H Platelet Count 152 K/UL (150-450) Mean Platelet Volume 12.0 FL (6.5-10.1) H Neutrophils (%) (Auto) 80.3 % (45.0-75.0) H Lymphocytes (%) (Auto) 13.0 % (20.0-45.0) L Monocytes (%) (Auto) 4.4 % (1.0-10.0) Eosinophils (%) (Auto) 0.6 % (0.0-3.0) Basophils (%) (Auto) 1.8 % (0.0-2.0) Sodium Level 141 MMOL/L (136-145) Potassium Level 4.6 MMOL/L (3.5-5.1) Chloride Level 105 MMOL/L (98-107) Carbon Dioxide Level 32 MMOL/L (21-32) Anion Gap 4 mmol/L (5-15) L Blood Urea Nitrogen 15 mg/dL (7-18) Creatinine 0.8 MG/DL (0.55-1.30) Estimat Glomerular Filtration Rate > 60 mL/min (>60) Glucose Level 87 MG/DL (74-106) Calcium Level 8.5 MG/DL (8.5-10.1) Intake and Output 6/3/20 6/4/20 19:00 07:00 Intake Total 240 ml 82.5 ml Balance 240 ml 82.5 ml Intake Oral 240 ml IV Total 82.5 ml # Voids 3 2 # Bowel Movements 1 2 Objective PHYSICAL EXAMINATION: GENERAL: The patient is well-developed and well-nourished female, in no apparent distress. HEENT: Eyes, pupils are equal and responsive to light and accommodation. Extraocular movements are intact. NECK: Supple without lymphadenopathy. CHEST: nasal canula; Lungs with coarse upper airway sounds without wheezes or rales. CARDIOVASCULAR: Regular rate. S1 and S2 normal without murmurs, rubs, or gallops. ABDOMEN: Soft, nontender, and nondistended. Positive bowel sounds. No evidence of hepatosplenomegaly. Currently, no rebound or guarding noted. EXTREMITIES: Negative for clubbing, cyanosis, or edema. RECTAL/GENITAL: Not performed. NEUROLOGIC: Cranial nerves II through XII are grossly intact without focal deficits. Assessment/Plan Assessment/Plan ASSESSMENT: This is an 79-year-old female. 1. Chest pain. 2. Fall injury. 3. Severe anemia. 4. Atrial fibrillation. 5. Polycythemia vera. 6. Hypertension. 7. Obstructive sleep apnea. 8. Coronary artery disease. 9. Hypercholesterolemia. 10. Congestive heart failure; QAH=2616 11. Right pleural hemothorax 12. Severe anemia 13. left pneumonia 14. Persistent hypokalemia-resolved 15. worsening pleural edema TREATMENT: 1. Chest pain. This may be secondary to fall injury. Initial troponin level was negative. Repeat troponin levels are pending. A Cardiology consultation has been obtained with Dr. Mainor Araujo. 2. Atrial fibrillation. As above, a Cardiology consultation has been obtained with Dr. Mainor Araujo. 3. Polycythemia vera. The patient is currently anemic. 4. Hypertension. Continue metoprolol as above. 5. Obstructive sleep apnea. 6. Coronary artery disease, status post myocardial infarction. As above, a Cardiology consultation has been obtained with Dr. Mainor Araujo. 7. Hypercholesteremia. 8. Congestive heart failure. 9. Pacemaker in situ. Pacemaker check is pending. 10. right thoracentesis pending 11. Discuss with patient regarding discharge planning, wants to go home, refused SNF. 12. CODE STATUS is full code. 13. Broad spectrum antibiotics with Rocephin IV. 14. Monitor cultures and laboratory. 15. DVT prophylaxis: SCD. 16. OOB to chair, PT Mobility 17. Dc Telemetry 18. S/P video assisted Thoracoscopic exploratory surgery 07/02/19; Thoracic surg=Dr. Malik 19. Right chest tube discontinued 07/07/19 20. S/P Transfusion 5 units PRBC 21. ABX=S/P zosyn per ID=Dr Arrieta 22. lasix for diuresis 22. Discharge planning 23. Transfuse 1 unit PRBC 07/16/19 Roshan Edwards MD Jul 16, 2019 15:10
--- NOTE | 2019-07-16 15:12 | Cardiac Electrophysiology PN ---
Assessment/Plan Assessment/Plan 1. Status post [employer] pacer in 2010 and Gen change by me in 07/2018 with normal function. 2. PAF with RVR. In SR/A paced on amiodarone 200 mg daily ,metoprolol 50 mg b.i.d. and Dig 0.125 po daily Off anticoagulation for severe anemia, needing blood transfusion. 3. Chest pain, felt to be musculoskeletal by Dr. Araujo. Ruled out for myocardial infarction. EF on 06/26/2019 was 55% 4. Urinary tract infection.On Abx 5. Hypertension. Continue metoprolol at this time. 6. Polycythemia vera, 7. Recurrent falls. . 8. Severe pulmonary hypertension. PA pressure of 71. 9. Hemothorax. S/P VATS by Dr Malik. Chest tube removed 10. Anemia, there is an order for PRBC DW RN Subjective Subjective Alert in NAD. On Abx. No CP or SOB Objective Last 24 Hour Vital Signs Date Time Temp Pulse Resp B/P (MAP) Pulse Ox O2 Delivery O2 Flow Rate FiO2 07/16/19 12:00 97.5 64 20 98/50 (66) 98 07/16/19 11:32 60 07/16/19 09:43 64 07/16/19 09:00 Nasal Cannula 2.0 07/16/19 09:00 64 109/50 07/16/19 08:00 98.1 64 20 109/50 (69) 98 07/16/19 07:46 61 07/16/19 04:00 63 07/16/19 04:00 98.0 68 20 101/51 (68) 100 07/16/19 00:00 99.8 70 18 111/55 (73) 98 07/16/19 00:00 65 07/15/19 21:00 Nasal Cannula 2.0 07/15/19 21:00 65 100/50 07/15/19 21:00 96 Nasal Cannula 2.0 28 07/15/19 20:00 68 07/15/19 20:00 98.0 65 19 100/50 (67) 100 07/15/19 15:58 97.7 70 18 99/51 (67) 100 07/15/19 15:16 68 Intake and Output 07/15/19 07/16/19 19:00 07:00 Intake Total 240 ml 82.5 ml Balance 240 ml 82.5 ml Intake Oral 240 ml IV Total 82.5 ml # Voids 3 2 # Bowel Movements 1 2 Laboratory Tests Test 07/16/19 06:13 White Blood Count 3.9 K/UL (4.8-10.8) L Red Blood Count 2.63 M/UL (4.20-5.40) L Hemoglobin 8.0 G/DL (12.0-16.0) L Hematocrit 23.7 % (37.0-47.0) L Mean Corpuscular Volume 90 FL (80-99) Mean Corpuscular Hemoglobin 30.4 PG (27.0-31.0) Mean Corpuscular Hemoglobin Concent 33.8 G/DL (32.0-36.0) Red Cell Distribution Width 16.4 % (11.6-14.8) H Platelet Count 152 K/UL (150-450) Mean Platelet Volume 12.0 FL (6.5-10.1) H Neutrophils (%) (Auto) 80.3 % (45.0-75.0) H Lymphocytes (%) (Auto) 13.0 % (20.0-45.0) L Monocytes (%) (Auto) 4.4 % (1.0-10.0) Eosinophils (%) (Auto) 0.6 % (0.0-3.0) Basophils (%) (Auto) 1.8 % (0.0-2.0) Sodium Level 141 MMOL/L (136-145) Potassium Level 4.6 MMOL/L (3.5-5.1) Chloride Level 105 MMOL/L (98-107) Carbon Dioxide Level 32 MMOL/L (21-32) Anion Gap 4 mmol/L (5-15) L Blood Urea Nitrogen 15 mg/dL (7-18) Creatinine 0.8 MG/DL (0.55-1.30) Estimat Glomerular Filtration Rate > 60 mL/min (>60) Glucose Level 87 MG/DL (74-106) Calcium Level 8.5 MG/DL (8.5-10.1) Objective HEAD AND NECK: No JVD LUNGS: Coarse rhonchi. CARDIOVASCULAR: Shows regular S1 and S2 with no gallop. ABDOMEN: Soft. EXTREMITIES: No pitting edema. SKIN: The pacemaker in the left subclavian intact. River Freitas MD Jul 16, 2019 15:12
--- NOTE | 2019-07-16 15:50 | Surgery Progress Note ---
Surgery Progress Note Subjective Procedure Performed right tube thoracostomy removal Additional Comments comfortable does not want much PT no n/v/f/c Objective Last 24 Hour Vital Signs Date Time Temp Pulse Resp B/P (MAP) Pulse Ox O2 Delivery O2 Flow Rate FiO2 07/16/19 12:00 97.5 64 20 98/50 (66) 98 07/16/19 11:32 60 07/16/19 09:43 64 07/16/19 09:00 Nasal Cannula 2.0 07/16/19 09:00 64 109/50 07/16/19 08:00 98.1 64 20 109/50 (69) 98 07/16/19 07:46 61 07/16/19 04:00 63 07/16/19 04:00 98.0 68 20 101/51 (68) 100 07/16/19 00:00 99.8 70 18 111/55 (73) 98 07/16/19 00:00 65 07/15/19 21:00 Nasal Cannula 2.0 07/15/19 21:00 65 100/50 07/15/19 21:00 96 Nasal Cannula 2.0 28 07/15/19 20:00 68 07/15/19 20:00 98.0 65 19 100/50 (67) 100 07/15/19 15:58 97.7 70 18 99/51 (67) 100 I&O Intake and Output 07/15/19 07/16/19 19:00 07:00 Intake Total 240 ml 82.5 ml Balance 240 ml 82.5 ml Intake Oral 240 ml IV Total 82.5 ml # Voids 3 2 # Bowel Movements 1 2 Dressing: other Wound: other Drains: other Cardiovascular: RSR Respiratory: decreased breath sounds Abdomen: soft, non-tender, present bowel sounds Extremities: no cyanosis Laboratory Tests Test 07/16/19 06:13 White Blood Count 3.9 K/UL (4.8-10.8) L Red Blood Count 2.63 M/UL (4.20-5.40) L Hemoglobin 8.0 G/DL (12.0-16.0) L Hematocrit 23.7 % (37.0-47.0) L Mean Corpuscular Volume 90 FL (80-99) Mean Corpuscular Hemoglobin 30.4 PG (27.0-31.0) Mean Corpuscular Hemoglobin Concent 33.8 G/DL (32.0-36.0) Red Cell Distribution Width 16.4 % (11.6-14.8) H Platelet Count 152 K/UL (150-450) Mean Platelet Volume 12.0 FL (6.5-10.1) H Neutrophils (%) (Auto) 80.3 % (45.0-75.0) H Lymphocytes (%) (Auto) 13.0 % (20.0-45.0) L Monocytes (%) (Auto) 4.4 % (1.0-10.0) Eosinophils (%) (Auto) 0.6 % (0.0-3.0) Basophils (%) (Auto) 1.8 % (0.0-2.0) Sodium Level 141 MMOL/L (136-145) Potassium Level 4.6 MMOL/L (3.5-5.1) Chloride Level 105 MMOL/L (98-107) Carbon Dioxide Level 32 MMOL/L (21-32) Anion Gap 4 mmol/L (5-15) L Blood Urea Nitrogen 15 mg/dL (7-18) Creatinine 0.8 MG/DL (0.55-1.30) Estimat Glomerular Filtration Rate > 60 mL/min (>60) Glucose Level 87 MG/DL (74-106) Calcium Level 8.5 MG/DL (8.5-10.1) Plan Problems: (1) Hematothorax Assessment & Plan: s/p VATS recovering okay for diet keep chest tube to suction AM CXR will monitor and remove tube when stable okay for chest tube to water seal cxr noted tube removed respiratory percussion and suction slowly improving d/c planning Interim reexpansion of the left lung. There is considerable parenchymal disease throughout the left lung, however. Interim removal of previously demonstrated right chest tube. No pneumothorax. There is some pleural thickening Versus fluid at the right lung base. There is extensive right lung parenchymal interstitial and alveolar disease which appears increased from the previous study. The heart size is normal. Left chest pacemaker again demonstrated. Impression: Interim right chest tube removal. No evidence of pneumothorax Worsening bilateral parenchymal infiltrates versus edema Right lateral basilar pleural thickening versus fluid Borderline prominent cardiac silhouette. There is interval improvement in previously noted edema/failure and bilateral multifocal infiltrates. Small bilateral pleural effusions. Pacemaker device. Remainder little changed. IMPRESSION: Control, interval improvement in previously noted edema/failure and bilateral multifocal infiltrates. Pt presented with Incontinence Associated dermatitis perineum and buttocks.non- blanching erythema with moisture intertrigo noted to cleft of buttocks.Perianal area,R and L buttocks, and bilat ischium are erythematous and denuded. Staff reported pt is incontinent and had diarrhea previous 2 days. Pt also observed to had moisture Intertrigo abdominal folds, R and L groin area. Non-Blanching erythema without induration or fluctuance R and L Heels. Pt did not verbalize,or exhibit any distress to indicate Pain when each heel individually palpated. Tx.Plan: Apply Moisture Barrier Paste to abdominal folds, bilat groin areas with each incontinence care. Apply Moisture Barrier Paste to Buttocks. Cover Sacral area with Optifoam drsg Change every 3 days and prn. Apply Cavilon Skin Barrier to each heel. Cover each heel with Optifoam drsg. Change every 7 days and prn. Reposition at least every 2 hours or as tolerated. Off-load heels with Pillow. Errol Estrada Jul 16, 2019 15:50
[2019-07-16 16:00] VITALS: BP 102/73
[2019-07-16] MEDS: Cefdinir 300mg cap ORAL SCH (17:31)
--- NOTE | 2019-07-16 18:15 | Cardiology Progress Note ---
Assessment/Plan Assessment/Plan 1. Paroxysmal episodes of atrial fibrillation. 2. Sick sinus syndrome status post pacemaker implantation with generator replacement in July of 2018. 3. Profound anemia. 4. History of polycythemia. 5. Probable urinary tract infection. 6. Fall. 7. Reported history of polycythemia vera. 8. Sleep apnea history. 9. Rib fracture 10 hemothorax s/p vats 11. Pulmonary htn 71 12. left lung collapse / opacifiction of left lung resolved 13. diarrhea 14. pulm infiltrate 15. Hypotension covid neg x2 s/ vats ct removed cxr personally reviewed righ sided effusion tele personally reviewed sinus atrial paced diruetics as bp allow so far neg fluid status for the past 3 dyas ef 55% d/w rn Subjective Cardiovascular: Denies: chest pain, lightheadedness, palpitations Respiratory: Denies: cough, shortness of breath Gastrointestinal/Abdominal: Denies: abdominal pain Genitourinary: Denies: burning Objective Last 24 Hour Vital Signs Date Time Temp Pulse Resp B/P (MAP) Pulse Ox O2 Delivery O2 Flow Rate FiO2 07/16/19 16:00 98.1 63 20 102/73 (83) 100 07/16/19 15:40 61 07/16/19 12:00 97.5 64 20 98/50 (66) 98 07/16/19 11:32 60 07/16/19 09:43 64 07/16/19 09:00 Nasal Cannula 2.0 07/16/19 09:00 64 109/50 07/16/19 08:00 98.1 64 20 109/50 (69) 98 07/16/19 07:46 61 07/16/19 04:00 63 07/16/19 04:00 98.0 68 20 101/51 (68) 100 07/16/19 00:00 99.8 70 18 111/55 (73) 98 07/16/19 00:00 65 07/15/19 21:00 Nasal Cannula 2.0 07/15/19 21:00 65 100/50 07/15/19 21:00 96 Nasal Cannula 2.0 28 07/15/19 20:00 68 07/15/19 20:00 98.0 65 19 100/50 (67) 100 General Appearance: no apparent distress, alert Neck: supple Cardiovascular: normal rate Respiratory/Chest: decreased breath sounds - right side Abdomen: non tender, soft Extremities: no swelling Intake and Output 07/15/19 07/16/19 19:00 07:00 Intake Total 240 ml 82.5 ml Balance 240 ml 82.5 ml Intake Oral 240 ml IV Total 82.5 ml # Voids 3 2 # Bowel Movements 1 2 Laboratory Tests Test 07/16/19 06:13 White Blood Count 3.9 K/UL (4.8-10.8) L Red Blood Count 2.63 M/UL (4.20-5.40) L Hemoglobin 8.0 G/DL (12.0-16.0) L Hematocrit 23.7 % (37.0-47.0) L Mean Corpuscular Volume 90 FL (80-99) Mean Corpuscular Hemoglobin 30.4 PG (27.0-31.0) Mean Corpuscular Hemoglobin Concent 33.8 G/DL (32.0-36.0) Red Cell Distribution Width 16.4 % (11.6-14.8) H Platelet Count 152 K/UL (150-450) Mean Platelet Volume 12.0 FL (6.5-10.1) H Neutrophils (%) (Auto) 80.3 % (45.0-75.0) H Lymphocytes (%) (Auto) 13.0 % (20.0-45.0) L Monocytes (%) (Auto) 4.4 % (1.0-10.0) Eosinophils (%) (Auto) 0.6 % (0.0-3.0) Basophils (%) (Auto) 1.8 % (0.0-2.0) Sodium Level 141 MMOL/L (136-145) Potassium Level 4.6 MMOL/L (3.5-5.1) Chloride Level 105 MMOL/L (98-107) Carbon Dioxide Level 32 MMOL/L (21-32) Anion Gap 4 mmol/L (5-15) L Blood Urea Nitrogen 15 mg/dL (7-18) Creatinine 0.8 MG/DL (0.55-1.30) Estimat Glomerular Filtration Rate > 60 mL/min (>60) Glucose Level 87 MG/DL (74-106) Calcium Level 8.5 MG/DL (8.5-10.1) Objective per pulm dr mederos note LUNGS: Coarse rhonchi. Decreased BS on R CARDIOVASCULAR: Shows regular S1 and S2 with no gallop. ABDOMEN: Soft. EXTREMITIES: No pitting edema. Mainor Araujo MD Jul 16, 2019 18:15
[2019-07-16 20:00] VITALS: BP 98/48
--- NOTE | 2019-07-16 20:08 | NUR ---
HAND-OFF: Report given to IRA Christopher. Pt in stable condition, endorsed plan of care. Addendum: 07/16/19 at 2009 by Sonia Haddad RN Blood transfusion started at 1853. No reaction observed.
--- NOTE | 2019-07-16 20:09 | NUR ---
NURSE NOTES: Received report from IRA Scott. Observed pt sitting up in bed, no s/sx of acute distress, breathing even and unlabored on 2L NC. Blood transfusion started at 18:53, running, no adverse reaction observed. BP runs low at 90-100's over 40-50s as baseline. Pt afebrile, will continue to monitor pt. Bed is in the lowest position, locked, bed alarm on, call light within reach. Fall precautions taught and reinforced. Will continue plan of care.
[2019-07-16] MEDS: Amiodarone 200mg tab ORAL SCH (21:00)
--- NOTE | 2019-07-16 21:15 | NUR ---
NURSE NOTES: Blood transfusion completed at 21:15. 1 unit PRBC's 250 mL infused. No adverse reaction noted, VSS at this time.
[2019-07-17] VITALS (8 sets, daily range): BP systolic 92–112; BP diastolic 46–56
[2019-07-17 06:55] LABS: ANION GAP 4 mmol/L (5-15); BLOOD UREA NITROGEN 14 mg/dL (7-18); CALCIUM 8.6 MG/DL (8.5-10.1); CARBON DIOXIDE 31 MMOL/L (21-32); CHLORIDE 106 MMOL/L (98-107); CREATININE 0.8 MG/DL (0.55-1.30); POTASSIUM 4.5 MMOL/L (3.5-5.1); SODIUM 141 MMOL/L (136-145)
--- NOTE | 2019-07-17 07:17 | NUR ---
HAND-OFF: Report given to Kristin ROTH.
--- NOTE | 2019-07-17 07:18 | NUR ---
NURSE NOTES: Received patient in bed asleep. O2 via NC in place, no SOB or acute distress. IV line intact and patent. HOB elevated. Bed locked in lowest position. Call light within reach. Will continue plan of care.
[2019-07-17 07:40] LABS: BASOPHILS % (AUTO) 2.6 % (0.0-2.0); EOSINOPHILS % (AUTO) 0.8 % (0.0-3.0); HEMATOCRIT 25.1 % (37.0-47.0); HEMOGLOBIN 8.9 G/DL (12.0-16.0); LYMPHOCYTES % (AUTO) 12.2 % (20.0-45.0); MEAN CORPUSCULAR VOLUME 88 FL (80-99); MONOCYTES % (AUTO) 3.4 % (1.0-10.0); NEUTROPHILS % (AUTO) 81.1 % (45.0-75.0); PLATELET COUNT 136 K/UL (150-450); RED BLOOD COUNT 2.85 M/UL (4.20-5.40); RED CELL DISTRIBUTION WIDTH 15.4 % (11.6-14.8); WHITE BLOOD COUNT 4.2 K/UL (4.8-10.8)
[2019-07-17] MEDS: Heparin 5000 units/ml inj SUBQ SCH ×3 (09:00→21:00)
[2019-07-17] MEDS: Cefdinir 300mg cap ORAL SCH ×2 (09:24→20:57)
[2019-07-17] MEDS: Metoprolol Tartrate 50mg tab ORAL SCH ×2 (09:24→20:58)
[2019-07-17] MEDS: Digoxin 0.125mg tab ORAL SCH (09:24)
--- NOTE | 2019-07-17 10:49 | Cardiac Electrophysiology PN ---
Assessment/Plan Assessment/Plan 1. Status post [employer] pacer in 2010 and Gen change by me in 07/2018 with normal function. 2. PAF with RVR. In SR/A paced on amiodarone 200 mg daily ,metoprolol 50 mg b.i.d. and Dig 0.125 po daily Off anticoagulation for severe anemia, needing blood transfusion. 3. Chest pain, felt to be musculoskeletal by Dr. Araujo. Ruled out for myocardial infarction. EF on 06/26/2019 was 55% 4. Urinary tract infection.On Abx 5. Hypertension. Continue metoprolol at this time. 6. Polycythemia vera, 7. Recurrent falls. . 8. Severe pulmonary hypertension. PA pressure of 71. 9. Hemothorax. S/P VATS by Dr Malik. Chest tube removed 10. Anemia DW RN DC planning Subjective Subjective Alert in NAD. No CP or SOB. Wants to go home Objective Last 24 Hour Vital Signs Date Time Temp Pulse Resp B/P (MAP) Pulse Ox O2 Delivery O2 Flow Rate FiO2 07/17/19 09:24 64 104/54 07/17/19 09:24 64 07/17/19 08:00 60 07/17/19 08:00 98.0 64 17 104/54 (71) 98 07/17/19 04:00 98.0 61 20 94/50 (65) 99 07/17/19 04:00 60 07/17/19 00:00 97.7 60 22 92/46 (61) 99 07/17/19 00:00 61 07/16/19 21:00 61 96/49 07/16/19 21:00 Nasal Cannula 2.0 07/16/19 20:00 60 07/16/19 20:00 97.9 61 21 98/48 (65) 100 07/16/19 16:00 98.1 63 20 102/73 (83) 100 07/16/19 15:40 61 07/16/19 12:00 97.5 64 20 98/50 (66) 98 07/16/19 11:32 60 Intake and Output 07/16/19 07/17/19 19:00 07:00 Intake Total 480 ml Balance 480 ml Intake Oral 480 ml # Voids 5 # Bowel Movements 1 Laboratory Tests Test 07/17/19 05:40 White Blood Count 4.2 K/UL (4.8-10.8) L Red Blood Count 2.85 M/UL (4.20-5.40) L Hemoglobin 8.9 G/DL (12.0-16.0) L Hematocrit 25.1 % (37.0-47.0) L Mean Corpuscular Volume 88 FL (80-99) Mean Corpuscular Hemoglobin 31.1 PG (27.0-31.0) H Mean Corpuscular Hemoglobin Concent 35.2 G/DL (32.0-36.0) Red Cell Distribution Width 15.4 % (11.6-14.8) H Platelet Count 136 K/UL (150-450) L Mean Platelet Volume 10.7 FL (6.5-10.1) H Neutrophils (%) (Auto) 81.1 % (45.0-75.0) H Lymphocytes (%) (Auto) 12.2 % (20.0-45.0) L Monocytes (%) (Auto) 3.4 % (1.0-10.0) Eosinophils (%) (Auto) 0.8 % (0.0-3.0) Basophils (%) (Auto) 2.6 % (0.0-2.0) H Sodium Level 141 MMOL/L (136-145) Potassium Level 4.5 MMOL/L (3.5-5.1) Chloride Level 106 MMOL/L (98-107) Carbon Dioxide Level 31 MMOL/L (21-32) Anion Gap 4 mmol/L (5-15) L Blood Urea Nitrogen 14 mg/dL (7-18) Creatinine 0.8 MG/DL (0.55-1.30) Estimat Glomerular Filtration Rate > 60 mL/min (>60) Glucose Level 83 MG/DL (74-106) Calcium Level 8.6 MG/DL (8.5-10.1) Objective HEAD AND NECK: No JVD LUNGS: Coarse rhonchi. CARDIOVASCULAR: Shows regular S1 and S2 with no gallop. ABDOMEN: Soft. EXTREMITIES: No pitting edema. SKIN: The pacemaker in the left subclavian intact. River Freitas MD Jul 17, 2019 10:49
--- NOTE | 2019-07-17 12:53 | NUR ---
CASE MANAGEMENT:REVIEW 07/17/19 SI: RT HEMOTHORAX. S/P CHEST TUBE REMOVAL 07/08/19 COVID(-) CXR(+) INCREASED RUL INFILTRATES 98.0 58 19 103/48 95% ON 2L/NC H/H-8.9/25.1 IS: CEFDINIR PO Q12 IV LASIX QD DIGOXIN PO QD AMIODARONE PO QHS HEPARIN SQ Q12 LOPRESSOR PO Q12 : TELEMETRY STATUS DCP: FROM HOME PLAN: CXR TODAY SHOWS SIGNS OF WORSENING RUL INFILTRATES CONTINUE DIURESIS W/IV LASIX S/P TRANSFUSION YESTERDAY 1 UNIT PRBC'S ORDERED HOME OXYGEN AND HOME HEALTH
--- NOTE | 2019-07-17 12:58 | NUR ---
DISCHARGE PLANNING HOME OXYGEN HAS BEEN ORDERED FROM [facility] AND [facility] IS AT THE BEDSIDE PATIENT HAS BEEN REFERRED TO [facility]...THEY JUST NEED TO BE NOTIFIED OF DISCHARGE DATE
--- NOTE | 2019-07-17 13:36 | Pulmonology Progress Note ---
Subjective ROS Limited/Unobtainable: No Interval Events: late note for 07/14 Constitutional: Reports: no symptoms HEENT: Repors: no symptoms Allergies: Coded Allergies: No Known Allergies (Unverified , 04/24/18) Objective Last 24 Hour Vital Signs Date Time Temp Pulse Resp B/P (MAP) Pulse Ox O2 Delivery O2 Flow Rate FiO2 07/17/19 12:00 98.0 58 19 103/48 (66) 95 07/17/19 09:24 64 104/54 07/17/19 09:24 64 07/17/19 09:00 Nasal Cannula 2.0 07/17/19 08:00 60 07/17/19 08:00 98.0 64 17 104/54 (71) 98 07/17/19 04:00 98.0 61 20 94/50 (65) 99 07/17/19 04:00 60 07/17/19 00:00 97.7 60 22 92/46 (61) 99 07/17/19 00:00 61 07/16/19 21:00 61 96/49 07/16/19 21:00 Nasal Cannula 2.0 07/16/19 20:00 60 07/16/19 20:00 97.9 61 21 98/48 (65) 100 07/16/19 16:00 98.1 63 20 102/73 (83) 100 07/16/19 15:40 61 Intake and Output 07/16/19 07/17/19 18:59 06:59 Intake Total 480 ml Balance 480 ml Intake Oral 480 ml # Voids 5 # Bowel Movements 1 General Appearance: WD/WN HEENT: normocephalic, atraumatic Respiratory: chest wall non-tender, lungs clear, rhonchi - left, rhonchi - right Cardiovascular: normal peripheral pulses, normal rate Abdomen: normal bowel sounds, soft, non tender Genitourinary: normal external genitalia Extremities: no clubbing Skin: no rash 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 Lymphatic: no neck adenopathy Laboratory Tests 07/17/19 05:40: White Blood Count 4.2L, Red Blood Count 2.85L, Hemoglobin 8.9L, Hematocrit 25.1L , Mean Corpuscular Volume 88, Mean Corpuscular Hemoglobin 31.1H, Mean Corpuscular Hemoglobin Concent 35.2, Red Cell Distribution Width 15.4H, Platelet Count 136L, Mean Platelet Volume 10.7H, Neutrophils (%) (Auto) 81.1H, Lymphocytes (%) (Auto) 12.2L, Monocytes (%) (Auto) 3.4, Eosinophils (%) (Auto) 0.8, Basophils (%) (Auto) 2.6H, Sodium Level 141, Potassium Level 4.5, Chloride Level 106, Carbon Dioxide Level 31, Anion Gap 4L, Blood Urea Nitrogen 14, Creatinine 0.8, Estimat Glomerular Filtration Rate > 60, Glucose Level 83, Calcium Level 8.6 Current Medications Medications (Trade) Dose Ordered Sig/Escobar Route PRN Reason Start Time Stop Time Status Last Admin Dose Admin Acetaminophen (Tylenol) 650 mg Q4H PRN ORAL T>100.5 07/08/19 18:15 08/07/19 18:14 Amiodarone HCl (Cordarone) 200 mg QHS ORAL 07/08/19 21:00 09/30/19 20:59 07/16/19 21:00 Cefdinir (Cefdinir) 300 mg Q12HR ORAL 07/16/19 18:00 07/23/19 17:59 07/17/19 09:24 Dextrose (Dextrose 50%) 25 ml Q30M PRN IV Hypoglycemia 07/08/19 18:30 09/20/19 18:59 Dextrose (Dextrose 50%) 50 ml Q30M PRN IV Hypoglycemia 07/08/19 18:30 09/20/19 18:59 Digoxin (Lanoxin) 0.125 mg DAILY ORAL 07/09/19 09:00 10/03/19 08:59 07/17/19 09:24 Furosemide (Lasix) 20 mg DAILY IV 07/13/19 12:30 08/12/19 12:29 07/17/19 09:24 Heparin Sodium (Porcine) (Heparin 5000 units/ml) 5,000 units EVERY 12 HOURS SUBQ 07/08/19 21:00 08/19/19 20:59 07/16/19 09:00 Hydroxyzine HCl (Atarax) 25 mg Q8H PRN ORAL Itching 07/08/19 18:16 08/07/19 18:15 Metoprolol Tartrate (Lopressor) 50 mg EVERY 12 HOURS ORAL 07/08/19 21:00 09/30/19 20:59 07/17/19 09:24 Assessment/Plan Problems: (1) Pulmonary edema (2) RLL pneumonia (3) Collapse of left lung Assessment & Plan: resolved (4) Pleural effusion (5) Chronic anticoagulation (6) Ribs, multiple fractures (7) Atrial fibrillation (8) Pacemaker (9) COPD (chronic obstructive pulmonary disease) (10) KELVIN (obstructive sleep apnea) Assessment/Plan episodes of short of breath, pt is too fragile to go home. PT recommending acute rehab. diuresing well, total intake and output is 12 liters positive transfuse one more prbc cxr from 07/14: Increased right upper lobe infiltrates no new complains incentive spirometry chest PT only to left site afebrile, COVID negative times Roberto barbosa Mirali MD Jul 17, 2019 13:36
--- NOTE | 2019-07-17 14:20 | NUR ---
*-*DISCHARGE PLANNING-*-* PATIENT [facility] BE[facility] P: [phone] S/W [place], WILL CALL BACK AFTER REVIEW, AND NO BEDS AVAILABLE UNTIL SATURDAY OR SATURDAY.
--- NOTE | 2019-07-17 14:47 | Surgery Progress Note ---
Surgery Progress Note Subjective Procedure Performed right tube thoracostomy removal Additional Comments no acute events labs noted exam stable Objective Last 24 Hour Vital Signs Date Time Temp Pulse Resp B/P (MAP) Pulse Ox O2 Delivery O2 Flow Rate FiO2 07/17/19 12:00 98.0 58 19 103/48 (66) 95 07/17/19 09:24 64 104/54 07/17/19 09:24 64 07/17/19 09:00 Nasal Cannula 2.0 07/17/19 08:00 60 07/17/19 08:00 98.0 64 17 104/54 (71) 98 07/17/19 04:00 98.0 61 20 94/50 (65) 99 07/17/19 04:00 60 07/17/19 00:00 97.7 60 22 92/46 (61) 99 07/17/19 00:00 61 07/16/19 21:00 61 96/49 07/16/19 21:00 Nasal Cannula 2.0 07/16/19 20:00 60 07/16/19 20:00 97.9 61 21 98/48 (65) 100 07/16/19 16:00 98.1 63 20 102/73 (83) 100 07/16/19 15:40 61 I&O Intake and Output 07/16/19 07/17/19 19:00 07:00 Intake Total 480 ml Balance 480 ml Intake Oral 480 ml # Voids 5 # Bowel Movements 1 Dressing: other Wound: other Drains: other Cardiovascular: RSR Respiratory: decreased breath sounds Abdomen: soft, non-tender, present bowel sounds Extremities: no cyanosis Laboratory Tests Test 07/17/19 05:40 White Blood Count 4.2 K/UL (4.8-10.8) L Red Blood Count 2.85 M/UL (4.20-5.40) L Hemoglobin 8.9 G/DL (12.0-16.0) L Hematocrit 25.1 % (37.0-47.0) L Mean Corpuscular Volume 88 FL (80-99) Mean Corpuscular Hemoglobin 31.1 PG (27.0-31.0) H Mean Corpuscular Hemoglobin Concent 35.2 G/DL (32.0-36.0) Red Cell Distribution Width 15.4 % (11.6-14.8) H Platelet Count 136 K/UL (150-450) L Mean Platelet Volume 10.7 FL (6.5-10.1) H Neutrophils (%) (Auto) 81.1 % (45.0-75.0) H Lymphocytes (%) (Auto) 12.2 % (20.0-45.0) L Monocytes (%) (Auto) 3.4 % (1.0-10.0) Eosinophils (%) (Auto) 0.8 % (0.0-3.0) Basophils (%) (Auto) 2.6 % (0.0-2.0) H Sodium Level 141 MMOL/L (136-145) Potassium Level 4.5 MMOL/L (3.5-5.1) Chloride Level 106 MMOL/L (98-107) Carbon Dioxide Level 31 MMOL/L (21-32) Anion Gap 4 mmol/L (5-15) L Blood Urea Nitrogen 14 mg/dL (7-18) Creatinine 0.8 MG/DL (0.55-1.30) Estimat Glomerular Filtration Rate > 60 mL/min (>60) Glucose Level 83 MG/DL (74-106) Calcium Level 8.6 MG/DL (8.5-10.1) Plan Problems: (1) Hematothorax Assessment & Plan: s/p VATS recovering okay for diet keep chest tube to suction AM CXR will monitor and remove tube when stable okay for chest tube to water seal cxr noted tube removed respiratory percussion and suction slowly improving d/c planning Interim reexpansion of the left lung. There is considerable parenchymal disease throughout the left lung, however. Interim removal of previously demonstrated right chest tube. No pneumothorax. There is some pleural thickening Versus fluid at the right lung base. There is extensive right lung parenchymal interstitial and alveolar disease which appears increased from the previous study. The heart size is normal. Left chest pacemaker again demonstrated. Impression: Interim right chest tube removal. No evidence of pneumothorax Worsening bilateral parenchymal infiltrates versus edema Right lateral basilar pleural thickening versus fluid Borderline prominent cardiac silhouette. There is interval improvement in previously noted edema/failure and bilateral multifocal infiltrates. Small bilateral pleural effusions. Pacemaker device. Remainder little changed. IMPRESSION: Control, interval improvement in previously noted edema/failure and bilateral multifocal infiltrates. Pt presented with Incontinence Associated dermatitis perineum and buttocks.non- blanching erythema with moisture intertrigo noted to cleft of buttocks.Perianal area,R and L buttocks, and bilat ischium are erythematous and denuded. Staff reported pt is incontinent and had diarrhea previous 2 days. Pt also observed to had moisture Intertrigo abdominal folds, R and L groin area. Non-Blanching erythema without induration or fluctuance R and L Heels. Pt did not verbalize,or exhibit any distress to indicate Pain when each heel individually palpated. Tx.Plan: Apply Moisture Barrier Paste to abdominal folds, bilat groin areas with each incontinence care. Apply Moisture Barrier Paste to Buttocks. Cover Sacral area with Optifoam drsg Change every 3 days and prn. Apply Cavilon Skin Barrier to each heel. Cover each heel with Optifoam drsg. Change every 7 days and prn. Reposition at least every 2 hours or as tolerated. Off-load heels with Pillow. Errol Estrada Jul 17, 2019 14:47
--- NOTE | 2019-07-17 15:06 | NUR ---
DISCHARGE PLANNING PATIENT WAS REFERRED TO [facility]....NO BEDS AVAILABLE UNTIL SATURDAY OR SATURDAY DR CHIU HAS BEEN UPDATED. DR CHIU NOT COMFORTABLE DISCHARGING PATIENT TO HOME AT THIS TIME EVEN THOUGH PORTABLE OXYGEN IS AT BEDSIDE FOR HOME USE
--- NOTE | 2019-07-17 15:10 | Infectious Diseases Prog Note ---
Assessment/Plan Assessment/Plan Assessment: Low grade fever; intermittent- SP No leukocytosis> mild leukopenia -07/03 Bcx Neg -06/21 u/a wbc 15-20, nit neg, leuk+3; UCx <10 mixed urogenital contaminants PNA- COVID19 neg x2 -07/14 CXR: Increased right upper lobe infiltrates -07/12 CXR: Increasing bilateral basilar infiltrates/edema and pleural effusions, over 2 days -07/08 SARS-COV2 PCR neg -07/07 CXR: Interim right chest tube removal. No evidence of pneumothorax. Worsening bilateral parenchymal infiltrates versus edema. Right lateral basilar pleural thickening versus fluid -07/05 CXR: . Slightly improved moderate left pleural effusion. Slightly improved left perihilar interstitial thickening and lower lung opacity. Minimally improved right interstitial thickening and perihilar and lower lobe opacities. Improving right chest wall emphysema. Stable right chest tube. -06/26 CXR: Pulmonary vascular congestion, similar to mildly increased from the prior exam. No significant change in the small right pleural effusion or subtle infiltrate in the right lung base. -06/25 SARS-COV2 PCR neg -06/23 CXR: Right basilar infiltrate with trace right effusion. s/p Mechanical fall Rib, abdominal pain- 2ry to R rib fractures and large R pleural effusion/ hemothorax ?Post-op pos-obstructive PNA -07/03 CXR: . Interval development of diffuse opacification of the left lung. This raises possibility of having developed a left mainstem bronchus obstruction with postobstructive atelectasis. Alternatively a very large left effusion or severe left-sided pneumonia could have similar appearance, although unlikely to have developed since the prior exam. -07/01 SP Flexible bronchoscopy. Right video-assisted thoracoscopic surgery. Intrapleural pneumolysis.Evacuation of right intrathoracic blood. Intercostal nerve block. --OR Findings: Minimal amount of mucopurulent secretion was lavaged and suctioned clear. Righ hemithorax: There was noted to be some adhesions There was noted to be no protrusion of any fractured ribs into the intrathoracic cavity as the entire parietal pleura appears to be intact. -- cx neg (aerobic and anaerobic) --AFB smear neg; cx p -06/25 Chest US: Small right pleural effusion, decreased compared to the prior exam. No significant pocket for thoracentesis. -06/22 Chest US: Positive for right pleural effusion -06/[address]: 1. 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 No acute intracranial pathology is detected. CT C/abd/p:No evidence of acute injury to the abdominal or pelvic viscera. Somewhat limited study due to motion artifact. Cholelithiasis. Acute posterior medial lower right rib fractures. Moderate to large right pleural effusion, possibly containing an element of the hemothorax. Cardiomegaly.ASCVD. No pneumothoraces. Acute on chronic anemia -08/06/18 sp EGD: Normal upper endoscopy, status post biopsy. -path: mild chronic gastritis, no H. pylori identified pAfib hx of rib fractures Sinus node dysfunction s/p PPM (batter exchange July 2018) s/p KELI GERD polycythemia vera HLD MDD anemia NSTEMI s/p normal cardiac catheterization 2019 HTN KELVIN dCHF Plan: -Continue PO Cefdinir #2 (abx d #) -07/15 SP Zosyn #13 -07/03 SP Ceftriaxone #9 -f/u cx -Monitor CBC/CMP, temperatures -aspiration precautions -Pulm, CT sx, cards f/u -COVID 19 neg x2; ok to dc isolation -sp cx Thank you for consulting [facility]. Will contiue to follow along with you. Discussed with RN Subjective Allergies: Coded Allergies: No Known Allergies (Unverified , 04/24/18) Subjective afebrile on 2l NC mild leukopenia improved Objective Vital Signs Last 24 Hour Vital Signs Date Time Temp Pulse Resp B/P (MAP) Pulse Ox O2 Delivery O2 Flow Rate FiO2 07/17/19 12:00 98.0 58 19 103/48 (66) 95 07/17/19 09:24 64 104/54 07/17/19 09:24 64 07/17/19 09:00 Nasal Cannula 2.0 07/17/19 08:00 60 07/17/19 08:00 98.0 64 17 104/54 (71) 98 07/17/19 04:00 98.0 61 20 94/50 (65) 99 07/17/19 04:00 60 07/17/19 00:00 97.7 60 22 92/46 (61) 99 07/17/19 00:00 61 07/16/19 21:00 61 96/49 07/16/19 21:00 Nasal Cannula 2.0 07/16/19 20:00 60 07/16/19 20:00 97.9 61 21 98/48 (65) 100 07/16/19 16:00 98.1 63 20 102/73 (83) 100 07/16/19 15:40 61 Height (Feet): 5 Height (Inches): 0.00 Weight (Pounds): 136 Objective General Appearance: no acute distress, other - elderly female in NAD HEENT: normocephalic, atraumatic, anicteric Respiratory: decreased breath sounds Cardiovascular: normal rate Abdomen: normal bowel sounds, soft, non tender Extremities: no edema Neurologic: abnormal gait - unsteady, alert, responsive Musculoskeletal: atrophy Laboratory Tests Test 07/17/19 05:40 White Blood Count 4.2 K/UL (4.8-10.8) L Red Blood Count 2.85 M/UL (4.20-5.40) L Hemoglobin 8.9 G/DL (12.0-16.0) L Hematocrit 25.1 % (37.0-47.0) L Mean Corpuscular Volume 88 FL (80-99) Mean Corpuscular Hemoglobin 31.1 PG (27.0-31.0) H Mean Corpuscular Hemoglobin Concent 35.2 G/DL (32.0-36.0) Red Cell Distribution Width 15.4 % (11.6-14.8) H Platelet Count 136 K/UL (150-450) L Mean Platelet Volume 10.7 FL (6.5-10.1) H Neutrophils (%) (Auto) 81.1 % (45.0-75.0) H Lymphocytes (%) (Auto) 12.2 % (20.0-45.0) L Monocytes (%) (Auto) 3.4 % (1.0-10.0) Eosinophils (%) (Auto) 0.8 % (0.0-3.0) Basophils (%) (Auto) 2.6 % (0.0-2.0) H Sodium Level 141 MMOL/L (136-145) Potassium Level 4.5 MMOL/L (3.5-5.1) Chloride Level 106 MMOL/L (98-107) Carbon Dioxide Level 31 MMOL/L (21-32) Anion Gap 4 mmol/L (5-15) L Blood Urea Nitrogen 14 mg/dL (7-18) Creatinine 0.8 MG/DL (0.55-1.30) Estimat Glomerular Filtration Rate > 60 mL/min (>60) Glucose Level 83 MG/DL (74-106) Calcium Level 8.6 MG/DL (8.5-10.1) Current Medications Medications (Trade) Dose Ordered Sig/Escobar Route PRN Reason Start Time Stop Time Status Last Admin Dose Admin Acetaminophen (Tylenol) 650 mg Q4H PRN ORAL T>100.5 07/08/19 18:15 08/07/19 18:14 Amiodarone HCl (Cordarone) 200 mg QHS ORAL 07/08/19 21:00 09/30/19 20:59 07/16/19 21:00 Cefdinir (Cefdinir) 300 mg Q12HR ORAL 07/16/19 18:00 07/23/19 17:59 07/17/19 09:24 Dextrose (Dextrose 50%) 25 ml Q30M PRN IV Hypoglycemia 07/08/19 18:30 09/20/19 18:59 Dextrose (Dextrose 50%) 50 ml Q30M PRN IV Hypoglycemia 07/08/19 18:30 09/20/19 18:59 Digoxin (Lanoxin) 0.125 mg DAILY ORAL 07/09/19 09:00 10/03/19 08:59 07/17/19 09:24 Furosemide (Lasix) 20 mg DAILY IV 07/13/19 12:30 08/12/19 12:29 07/17/19 09:24 Heparin Sodium (Porcine) (Heparin 5000 units/ml) 5,000 units EVERY 12 HOURS SUBQ 07/08/19 21:00 08/19/19 20:59 07/16/19 09:00 Hydroxyzine HCl (Atarax) 25 mg Q8H PRN ORAL Itching 07/08/19 18:16 08/07/19 18:15 Metoprolol Tartrate (Lopressor) 50 mg EVERY 12 HOURS ORAL 07/08/19 21:00 09/30/19 20:59 07/17/19 09:24 Alejandrina Arrieta M.D. Jul 17, 2019 15:10
--- NOTE | 2019-07-17 16:13 | Internal Med Progress Note ---
Subjective Physician Name Antonio Adrian Attending Physician Antonio Adrian MD Current Medications Medications (Trade) Dose Ordered Sig/Escobar Route PRN Reason Start Time Stop Time Status Last Admin Dose Admin Acetaminophen (Tylenol) 650 mg Q4H PRN ORAL T>100.5 07/08/19 18:15 08/07/19 18:14 Amiodarone HCl (Cordarone) 200 mg QHS ORAL 07/08/19 21:00 09/30/19 20:59 07/16/19 21:00 Cefdinir (Cefdinir) 300 mg Q12HR ORAL 07/16/19 18:00 07/23/19 17:59 07/17/19 09:24 Dextrose (Dextrose 50%) 25 ml Q30M PRN IV Hypoglycemia 07/08/19 18:30 09/20/19 18:59 Dextrose (Dextrose 50%) 50 ml Q30M PRN IV Hypoglycemia 07/08/19 18:30 09/20/19 18:59 Digoxin (Lanoxin) 0.125 mg DAILY ORAL 07/09/19 09:00 10/03/19 08:59 07/17/19 09:24 Furosemide (Lasix) 20 mg DAILY IV 07/13/19 12:30 08/12/19 12:29 07/17/19 09:24 Heparin Sodium (Porcine) (Heparin 5000 units/ml) 5,000 units EVERY 12 HOURS SUBQ 07/08/19 21:00 08/19/19 20:59 07/16/19 09:00 Hydroxyzine HCl (Atarax) 25 mg Q8H PRN ORAL Itching 07/08/19 18:16 08/07/19 18:15 Metoprolol Tartrate (Lopressor) 50 mg EVERY 12 HOURS ORAL 07/08/19 21:00 09/30/19 20:59 07/17/19 09:24 Allergies: Coded Allergies: No Known Allergies (Unverified , 04/24/18) Subjective Awake, alert, responsive, Feeling "Okay", Denies chest pain or SOB. Poor appetite. Objective Last Vital Signs Date Time Temp Pulse Resp B/P (MAP) Pulse Ox O2 Delivery O2 Flow Rate FiO2 07/17/19 12:00 60 07/17/19 12:00 98.0 19 103/48 (66) 95 07/17/19 09:00 Nasal Cannula 2.0 07/15/19 21:00 28 Laboratory Tests Test 07/17/19 05:40 White Blood Count 4.2 K/UL (4.8-10.8) L Red Blood Count 2.85 M/UL (4.20-5.40) L Hemoglobin 8.9 G/DL (12.0-16.0) L Hematocrit 25.1 % (37.0-47.0) L Mean Corpuscular Volume 88 FL (80-99) Mean Corpuscular Hemoglobin 31.1 PG (27.0-31.0) H Mean Corpuscular Hemoglobin Concent 35.2 G/DL (32.0-36.0) Red Cell Distribution Width 15.4 % (11.6-14.8) H Platelet Count 136 K/UL (150-450) L Mean Platelet Volume 10.7 FL (6.5-10.1) H Neutrophils (%) (Auto) 81.1 % (45.0-75.0) H Lymphocytes (%) (Auto) 12.2 % (20.0-45.0) L Monocytes (%) (Auto) 3.4 % (1.0-10.0) Eosinophils (%) (Auto) 0.8 % (0.0-3.0) Basophils (%) (Auto) 2.6 % (0.0-2.0) H Sodium Level 141 MMOL/L (136-145) Potassium Level 4.5 MMOL/L (3.5-5.1) Chloride Level 106 MMOL/L (98-107) Carbon Dioxide Level 31 MMOL/L (21-32) Anion Gap 4 mmol/L (5-15) L Blood Urea Nitrogen 14 mg/dL (7-18) Creatinine 0.8 MG/DL (0.55-1.30) Estimat Glomerular Filtration Rate > 60 mL/min (>60) Glucose Level 83 MG/DL (74-106) Calcium Level 8.6 MG/DL (8.5-10.1) Intake and Output 07/16/19 07/17/19 19:00 07:00 Intake Total 480 ml Balance 480 ml Intake Oral 480 ml # Voids 5 # Bowel Movements 1 Objective General: No acute distress, awake and alert HEENT: NCAT, sclera anicteric, PERRL, EOMI. Neck: Supple, no significant jugular venous distention, Lungs: fair inspiratory effort, decreased air at the bases, no Wheeze or Rales. Heart: Regular rate and rhythm, normal S1/S2, no murmurs, +PPM. Abdomen: soft, nontender, nondistended. Normoactive bowel sounds. / Rectal: Refused and deferred. Extremities: No Cyanosis , clubbing or edema. Neuro: A&O x 3, Able to move all extremities. Skin: warm, no rashes or lesions Psych: Mood intact. Assessment/Plan Assessment/Plan ASSESSMENT: This is an 79-year-old female. 1. Right side chest wall pain most likely due to the multiple ribs fracture. 2. Mechanical fall 3. Severe anemia. 4. Atrial fibrillation. 5. Polycythemia vera. 6. Hypertension. 7. Obstructive sleep apnea. 8. Coronary artery disease. 9. Hypercholesterolemia. 10. Congestive heart failure; AET=[id number] 11. Sick sinus syndrome status post a pacemaker. 12. Hemopneumothorax s/p right side thoracoscopy (07/02/2019). TREATMENT: 1. Chest pain. This may be secondary to fall injury. Initial troponin level was negative. Repeat troponin levels are pending. A Cardiology consultation has been obtained with Dr. Mainor Araujo. 2. Severe anemia. The patient has been typed and crossed for 2 units of packed RBCs. 3. Atrial fibrillation. As above, a Cardiology consultation has been obtained with Dr. Mainor Araujo. 4. Polycythemia vera. 5. Hypertension. Continue metoprolol as above. 6. Obstructive sleep apnea. 7. Coronary artery disease, status post myocardial infarction. As above, a Cardiology consultation has been obtained with Dr. Mainor Araujo. 8. Hypercholesteremia. 9. Chronic Congestive heart failure. 10. Pacemaker in situ. 11. Discuss with patient regarding discharge planning. 12. CODE STATUS: Full code. 13. Abx: Zosyn IV. 14. Monitor cultures and laboratory. 15. DVT prophylaxis: SCD. 16. OOB to chair, PT Mobility 1st COVID test negative X 2 Continue PO Cefdinir (abx d #/) Antonio Adrian MD Jul 17, 2019 16:13
--- NOTE | 2019-07-17 17:00 | NUR ---
NURSE NOTES: Pt transferred from Tele. Report received from Kristin. Pt is AxOx3, Rwandan-speaking, not in distress, no complaints on pain, on NC at 2lpm, sats 96%. PIV on left wrist patent and intact. Pt noted with PIV on left wrist G22, flushes well. Sacral stage 2 noted, applied optifoam dressing. Bed low and locked, siderails up x2, call light within reach and instructed to call nurse for assistance. Will continue to monitor.
--- NOTE | 2019-07-17 17:08 | NUR ---
HAND-OFF: Transferred patient in stable condition to [facility] [id number], report given to Petey Stevens. Endorsed O2 tank at the bedside for home use. Belongings accounted for. Addendum: 07/17/19 at 1711 by Kristin Daniel RN NURSE NOTES: Endorsed to Petey stevens and Marilee ROTH to inform Dr Arrieta of loose stools.
[2019-07-17] MEDS ORDERED: HydrOXYzine tab 25mg tab ORAL PRN (17:13)
--- NOTE | 2019-07-17 18:09 | NUR ---
TAPERING MACHINE OPERATOR WEEKLY PROGRESS REPORT Patient continues to have ongoing poor and variable PO intake. 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 MD to consider allowing Patient to have food from home due to ongoing poor and inconsistent PO intake. Recent Meal Percentages per EMAR: 07/11 B:0% L:0% D:100% 07/12 B:0% L:25% D:10% 07/13 B:10% L:10% D:25% 07/14 B:25% L:15% D:0% -GOAL MET: New RN has been trained and is aware of aspiration precautions and Patient's ongoing poor PO intake. -GOAL NOT MET: Patient does not consistently consume >75% of PO diet. -GOAL NOT MET: MBSS has not been completed. Patient is not a good candidate for MBSS at this time as Patient's poor PO intake appears to be related to preference versus dysphagia. PLAN: 1.TAPERING MACHINE OPERATOR plans to f/u w/ Patient next week if still in house to determine further modifications to diet texture or postural modifications to optimize safe and adequate PO intake prior to discontinuing POC as Patient's poor PO intake appears to be related to preference versus dysphagia. 2.Continue oral care BID. TAPERING MACHINE OPERATOR [phone]
--- NOTE | 2019-07-17 19:27 | NUR ---
HAND-OFF: Report given to Tanya ROTH.
--- NOTE | 2019-07-17 19:31 | Cardiology Progress Note ---
Assessment/Plan Assessment/Plan 1. Paroxysmal episodes of atrial fibrillation. 2. Sick sinus syndrome status post pacemaker implantation with generator replacement in July of 2018. 3. Profound anemia. 4. History of polycythemia. 5. Probable urinary tract infection. 6. Fall. 7. Reported history of polycythemia vera. 8. Sleep apnea history. 9. Rib fracture 10 hemothorax s/p vats 11. Pulmonary htn 71 12. left lung collapse / opacifiction of left lung resolved 13. diarrhea 14. pulm infiltrate 15. Hypotension covid neg x2 s/ vats ct removed now on med surg diruetics as bp allow 1-2 moer days ef 55% d/w rn Subjective Cardiovascular: Denies: chest pain, lightheadedness, palpitations Gastrointestinal/Abdominal: Denies: abdominal pain Genitourinary: Denies: burning Objective Last 24 Hour Vital Signs Date Time Temp Pulse Resp B/P (MAP) Pulse Ox O2 Delivery O2 Flow Rate FiO2 07/17/19 16:00 61 07/17/19 16:00 97.9 61 18 101/54 (70) 96 07/17/19 12:00 60 07/17/19 12:00 98.0 58 19 103/48 (66) 95 07/17/19 09:24 64 104/54 07/17/19 09:24 64 07/17/19 09:00 Nasal Cannula 2.0 07/17/19 08:00 60 07/17/19 08:00 98.0 64 17 104/54 (71) 98 07/17/19 04:00 98.0 61 20 94/50 (65) 99 07/17/19 04:00 60 07/17/19 00:00 97.7 60 22 92/46 (61) 99 07/17/19 00:00 61 07/16/19 21:00 61 96/49 07/16/19 21:00 Nasal Cannula 2.0 07/16/19 20:00 60 07/16/19 20:00 97.9 61 21 98/48 (65) 100 General Appearance: no apparent distress, alert Neck: supple Cardiovascular: normal rate Respiratory/Chest: crackles/rales Abdomen: normal bowel sounds, non tender, soft Extremities: no swelling Intake and Output 07/16/19 07/17/19 19:00 07:00 Intake Total 480 ml Balance 480 ml Intake Oral 480 ml # Voids 5 # Bowel Movements 1 Laboratory Tests Test 07/17/19 05:40 White Blood Count 4.2 K/UL (4.8-10.8) L Red Blood Count 2.85 M/UL (4.20-5.40) L Hemoglobin 8.9 G/DL (12.0-16.0) L Hematocrit 25.1 % (37.0-47.0) L Mean Corpuscular Volume 88 FL (80-99) Mean Corpuscular Hemoglobin 31.1 PG (27.0-31.0) H Mean Corpuscular Hemoglobin Concent 35.2 G/DL (32.0-36.0) Red Cell Distribution Width 15.4 % (11.6-14.8) H Platelet Count 136 K/UL (150-450) L Mean Platelet Volume 10.7 FL (6.5-10.1) H Neutrophils (%) (Auto) 81.1 % (45.0-75.0) H Lymphocytes (%) (Auto) 12.2 % (20.0-45.0) L Monocytes (%) (Auto) 3.4 % (1.0-10.0) Eosinophils (%) (Auto) 0.8 % (0.0-3.0) Basophils (%) (Auto) 2.6 % (0.0-2.0) H Sodium Level 141 MMOL/L (136-145) Potassium Level 4.5 MMOL/L (3.5-5.1) Chloride Level 106 MMOL/L (98-107) Carbon Dioxide Level 31 MMOL/L (21-32) Anion Gap 4 mmol/L (5-15) L Blood Urea Nitrogen 14 mg/dL (7-18) Creatinine 0.8 MG/DL (0.55-1.30) Estimat Glomerular Filtration Rate > 60 mL/min (>60) Glucose Level 83 MG/DL (74-106) Calcium Level 8.6 MG/DL (8.5-10.1) Objective per pulm dr mederos note LUNGS: Coarse rhonchi. Decreased BS on R CARDIOVASCULAR: Shows regular S1 and S2 with no gallop. ABDOMEN: Soft. EXTREMITIES: No pitting edema. Mainor Araujo MD Jul 17, 2019 19:31
--- NOTE | 2019-07-17 20:35 | NUR ---
NURSE NOTES: Received patient awake, garbled and delayed speech, no SOB, impulsive, resting in bed.
[2019-07-17] MEDS: Amiodarone 200mg tab ORAL SCH (20:57)
[2019-07-18 04:00] VITALS: BP 114/68
--- NOTE | 2019-07-18 06:45 | Cardiac Electrophysiology PN ---
Assessment/Plan Assessment/Plan 1. Status post [employer] pacer in 2010 and Gen change by me in 07/2018 with normal function. 2. PAF with RVR. In SR/A paced on amiodarone 200 mg daily ,metoprolol 50 mg b.i.d. and Dig 0.125 po daily Off anticoagulation for severe anemia, needing blood transfusion. 3. Chest pain, Ruled out for myocardial infarction. EF on 06/26/2019 was 55% 4. Urinary tract infection.On Abx 5. Hypertension. Continue metoprolol at this time. 6. Polycythemia vera, 7. Recurrent falls. . 8. Severe pulmonary hypertension. PA pressure of 71. 9. Hemothorax. S/P VATS by Dr Malik. Chest tube removed 10. Anemia DW RN Subjective Subjective Alert in NAD. No CP or SOB. Off tele now on 4E Objective Last 24 Hour Vital Signs Date Time Temp Pulse Resp B/P (MAP) Pulse Ox O2 Delivery O2 Flow Rate FiO2 07/18/19 04:00 98.2 69 18 114/68 (83) 93 07/17/19 23:26 98.1 61 20 112/56 (74) 97 07/17/19 21:16 Nasal Cannula 2.0 07/17/19 20:58 60 98/53 07/17/19 20:32 98.4 60 20 98/53 (68) 96 07/17/19 19:08 97 Nasal Cannula 2.0 28 07/17/19 16:00 61 07/17/19 16:00 97.9 61 18 101/54 (70) 96 07/17/19 12:00 60 07/17/19 12:00 98.0 58 19 103/48 (66) 95 07/17/19 09:24 64 104/54 07/17/19 09:24 64 07/17/19 09:00 Nasal Cannula 2.0 07/17/19 08:00 60 07/17/19 08:00 98.0 64 17 104/54 (71) 98 Intake and Output 07/17/19 07/18/19 19:00 07:00 Intake Total 150 ml 240 ml Balance 150 ml 240 ml Intake Oral 150 ml 240 ml # Voids 5 3 Objective HEAD AND NECK: No JVD LUNGS: Coarse rhonchi. CARDIOVASCULAR: Shows regular S1 and S2 with no gallop. ABDOMEN: Soft. EXTREMITIES: No pitting edema. SKIN: The pacemaker in the left subclavian intact. River Freitas MD Jul 18, 2019 06:45
--- NOTE | 2019-07-18 07:12 | NUR ---
HAND-OFF: Report given to Chivo Mota RN. Endorsed that the patient is very high fall risk, impulsive, and tries to get out of bed by herself. Bed lowered,alarm on, and room close to nurse's station, and to use the call light for help.
--- NOTE | 2019-07-18 07:44 | NUR ---
NURSE NOTES: RNmade am rounds, patient is in the bed awake. no difficulty breathingnoted. denies any chest pain. skin is warm and dry to touch. left wrist 24 gauge IV site in-place and intact. no infiltration noted. call light is placed within reach. Bed alarm on. Bed in locked position for safety.
[2019-07-18 08:00] VITALS: BP 99/50
[2019-07-18] MEDS: Heparin 5000 units/ml inj SUBQ SCH ×2 (09:00→20:49)
[2019-07-18] MEDS: Metoprolol Tartrate 50mg tab ORAL SCH ×2 (09:00→20:47)
[2019-07-18] MEDS: Digoxin 0.125mg tab ORAL SCH (09:27)
[2019-07-18] MEDS: Cefdinir 300mg cap ORAL SCH (09:27)
[2019-07-18 12:00] VITALS: BP 103/56
--- NOTE | 2019-07-18 14:01 | Surgery Progress Note ---
Surgery Progress Note Subjective Procedure Performed right tube thoracostomy removal Symptoms: improved, tolerating diet, passing flatus, pain decreased Additional Comments not motivated to move or participate in exam wants to go home Objective Last 24 Hour Vital Signs Date Time Temp Pulse Resp B/P (MAP) Pulse Ox O2 Delivery O2 Flow Rate FiO2 07/18/19 12:00 98.0 71 18 103/56 (72) 95 07/18/19 09:27 68 07/18/19 09:00 Nasal Cannula 2.0 07/18/19 09:00 68 99/50 07/18/19 08:00 97.8 68 18 99/50 (66) 93 07/18/19 04:00 98.2 69 18 114/68 (83) 93 07/17/19 23:26 98.1 61 20 112/56 (74) 97 07/17/19 21:16 Nasal Cannula 2.0 07/17/19 20:58 60 98/53 07/17/19 20:32 98.4 60 20 98/53 (68) 96 07/17/19 19:08 97 Nasal Cannula 2.0 28 07/17/19 16:00 61 07/17/19 16:00 97.9 61 18 101/54 (70) 96 I&O Intake and Output 07/17/19 07/18/19 19:00 07:00 Intake Total 150 ml 240 ml Balance 150 ml 240 ml Intake Oral 150 ml 240 ml # Voids 5 3 Dressing: other Wound: other Drains: other Cardiovascular: RSR Respiratory: decreased breath sounds Abdomen: soft, non-tender, present bowel sounds Extremities: no edema, no tenderness, no cyanosis Plan Problems: (1) Hematothorax Assessment & Plan: s/p VATS recovering okay for diet keep chest tube to suction AM CXR will monitor and remove tube when stable okay for chest tube to water seal cxr noted tube removed respiratory percussion and suction slowly improving d/c planning Interim reexpansion of the left lung. There is considerable parenchymal disease throughout the left lung, however. Interim removal of previously demonstrated right chest tube. No pneumothorax. There is some pleural thickening Versus fluid at the right lung base. There is extensive right lung parenchymal interstitial and alveolar disease which appears increased from the previous study. The heart size is normal. Left chest pacemaker again demonstrated. Impression: Interim right chest tube removal. No evidence of pneumothorax Worsening bilateral parenchymal infiltrates versus edema Right lateral basilar pleural thickening versus fluid Borderline prominent cardiac silhouette. There is interval improvement in previously noted edema/failure and bilateral multifocal infiltrates. Small bilateral pleural effusions. Pacemaker device. Remainder little changed. IMPRESSION: Control, interval improvement in previously noted edema/failure and bilateral multifocal infiltrates. Pt presented with Incontinence Associated dermatitis perineum and buttocks.non- blanching erythema with moisture intertrigo noted to cleft of buttocks.Perianal area,R and L buttocks, and bilat ischium are erythematous and denuded. Staff reported pt is incontinent and had diarrhea previous 2 days. Pt also observed to had moisture Intertrigo abdominal folds, R and L groin area. Non-Blanching erythema without induration or fluctuance R and L Heels. Pt did not verbalize,or exhibit any distress to indicate Pain when each heel individually palpated. Tx.Plan: Apply Moisture Barrier Paste to abdominal folds, bilat groin areas with each incontinence care. Apply Moisture Barrier Paste to Buttocks. Cover Sacral area with Optifoam drsg Change every 3 days and prn. Apply Cavilon Skin Barrier to each heel. Cover each heel with Optifoam drsg. Change every 7 days and prn. Reposition at least every 2 hours or as tolerated. Off-load heels with Pillow. Errol Estrada Jul 18, 2019 14:01
--- NOTE | 2019-07-18 14:41 | Internal Med Progress Note ---
Subjective Date of Service: Jul 18, 2019 Physician Name Roshan Edwards Attending Physician Antonio Adrian MD Current Medications Medications (Trade) Dose Ordered Sig/Escobar Route PRN Reason Start Time Stop Time Status Last Admin Dose Admin Acetaminophen (Tylenol) 650 mg Q4H PRN ORAL T>100.5 07/17/19 17:13 08/16/19 17:12 Amiodarone HCl (Cordarone) 200 mg QHS ORAL 07/17/19 21:00 09/30/19 20:59 07/17/19 20:57 Cefdinir (Cefdinir) 300 mg Q12HR ORAL 07/17/19 21:00 07/23/19 17:59 07/18/19 09:27 Dextrose (Dextrose 50%) 25 ml Q30M PRN IV Hypoglycemia 07/17/19 17:30 09/20/19 18:59 Dextrose (Dextrose 50%) 50 ml Q30M PRN IV Hypoglycemia 07/17/19 17:30 09/20/19 18:59 Digoxin (Lanoxin) 0.125 mg DAILY ORAL 07/18/19 09:00 10/03/19 08:59 07/18/19 09:27 Furosemide (Lasix) 20 mg DAILY IV 07/18/19 09:00 08/12/19 12:29 07/18/19 09:27 Heparin Sodium (Porcine) (Heparin 5000 units/ml) 5,000 units EVERY 12 HOURS SUBQ 07/17/19 21:00 08/19/19 20:59 Hydroxyzine HCl (Atarax) 25 mg Q8H PRN ORAL Itching 07/17/19 17:13 08/16/19 17:12 Metoprolol Tartrate (Lopressor) 50 mg EVERY 12 HOURS ORAL 07/17/19 21:00 09/30/19 20:59 Allergies: Coded Allergies: No Known Allergies (Unverified , 04/24/18) Subjective 79 YO F admitted with atypical chest pain. Now severe anemia and acute congestive heart failure. Cover for Int Med-Dr Adrian. S/P video assisted thoracoscopic exploratory surgery 07/02/19. Tele Objective Last Vital Signs Date Time Temp Pulse Resp B/P (MAP) Pulse Ox O2 Delivery O2 Flow Rate FiO2 07/18/19 12:00 98.0 71 18 103/56 (72) 95 07/18/19 09:00 Nasal Cannula 2.0 07/17/19 19:08 28 Intake and Output 07/17/19 07/18/19 19:00 07:00 Intake Total 150 ml 240 ml Balance 150 ml 240 ml Intake Oral 150 ml 240 ml # Voids 5 3 Objective PHYSICAL EXAMINATION: GENERAL: The patient is well-developed and well-nourished female, in no apparent distress. HEENT: Eyes, pupils are equal and responsive to light and accommodation. Extraocular movements are intact. NECK: Supple without lymphadenopathy. CHEST: nasal canula; Lungs with coarse upper airway sounds without wheezes or rales. CARDIOVASCULAR: Regular rate. S1 and S2 normal without murmurs, rubs, or gallops. ABDOMEN: Soft, nontender, and nondistended. Positive bowel sounds. No evidence of hepatosplenomegaly. Currently, no rebound or guarding noted. EXTREMITIES: Negative for clubbing, cyanosis, or edema. RECTAL/GENITAL: Not performed. NEUROLOGIC: Cranial nerves II through XII are grossly intact without focal deficits. Assessment/Plan Assessment/Plan ASSESSMENT: This is an 79-year-old female. 1. Chest pain. 2. Fall injury. 3. Severe anemia. 4. Atrial fibrillation. 5. Polycythemia vera. 6. Hypertension. 7. Obstructive sleep apnea. 8. Coronary artery disease. 9. Hypercholesterolemia. 10. Congestive heart failure; DDJ=[id number] 11. Right pleural hemothorax 12. Severe anemia 13. left pneumonia 14. Persistent hypokalemia-resolved 15. worsening pleural edema TREATMENT: 1. Chest pain. This may be secondary to fall injury. Initial troponin level was negative. Repeat troponin levels are pending. A Cardiology consultation has been obtained with Dr. Mainor Araujo. 2. Atrial fibrillation. As above, a Cardiology consultation has been obtained with Dr. Mainor Araujo. 3. Polycythemia vera. The patient is currently anemic. 4. Hypertension. Continue metoprolol as above. 5. Obstructive sleep apnea. 6. Coronary artery disease, status post myocardial infarction. As above, a Cardiology consultation has been obtained with Dr. Mainor Araujo. 7. Hypercholesteremia. 8. Congestive heart failure. 9. Pacemaker in situ. Pacemaker check is pending. 10. right thoracentesis pending 11. Discuss with patient regarding discharge planning, wants to go home, refused SNF. 12. CODE STATUS is full code. 13. Broad spectrum antibiotics with Rocephin IV. 14. Monitor cultures and laboratory. 15. DVT prophylaxis: SCD. 16. OOB to chair, PT Mobility 17. Dc Telemetry 18. S/P video assisted Thoracoscopic exploratory surgery 07/02/19; Thoracic surg=Dr. Malik 19. Right chest tube discontinued 07/07/19 20. S/P Transfusion 6 units PRBC 21. ABX=S/P zosyn per ID=Dr Arrieta 22. lasix for diuresis 22. Discharge planning: [facility] Acute rehab when bed available. Roshan Edwards MD Jul 18, 2019 14:41
[2019-07-18 16:00] VITALS: BP 96/47
--- NOTE | 2019-07-18 16:58 | Pulmonology Progress Note ---
Subjective ROS Limited/Unobtainable: No Interval Events: late note for 07/14 Constitutional: Reports: no symptoms HEENT: Repors: no symptoms Allergies: Coded Allergies: No Known Allergies (Unverified , 04/24/18) Objective Last 24 Hour Vital Signs Date Time Temp Pulse Resp B/P (MAP) Pulse Ox O2 Delivery O2 Flow Rate FiO2 07/18/19 12:00 98.0 71 18 103/56 (72) 95 07/18/19 09:27 68 07/18/19 09:00 Nasal Cannula 2.0 07/18/19 09:00 68 99/50 07/18/19 08:00 97.8 68 18 99/50 (66) 93 07/18/19 04:00 98.2 69 18 114/68 (83) 93 07/17/19 23:26 98.1 61 20 112/56 (74) 97 07/17/19 21:16 Nasal Cannula 2.0 07/17/19 20:58 60 98/53 07/17/19 20:32 98.4 60 20 98/53 (68) 96 07/17/19 19:08 97 Nasal Cannula 2.0 28 Intake and Output 07/17/19 07/18/19 19:00 07:00 Intake Total 150 ml 240 ml Balance 150 ml 240 ml Intake Oral 150 ml 240 ml # Voids 5 3 General Appearance: WD/WN HEENT: normocephalic, atraumatic Respiratory: chest wall non-tender, lungs clear, rhonchi - left, rhonchi - right Cardiovascular: normal peripheral pulses, normal rate Abdomen: normal bowel sounds, soft, non tender Genitourinary: normal external genitalia Extremities: no clubbing Skin: no rash Neurologic: infant and 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 II-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 grossly normal Lymphatic: no neck adenopathy Current Medications Medications (Trade) Dose Ordered Sig/Escobar Route PRN Reason Start Time Stop Time Status Last Admin Dose Admin Acetaminophen (Tylenol) 650 mg Q4H PRN ORAL T>100.5 07/17/19 17:13 08/16/19 17:12 Amiodarone HCl (Cordarone) 200 mg QHS ORAL 07/17/19 21:00 09/30/19 20:59 07/17/19 20:57 Cefdinir (Cefdinir) 300 mg Q12HR ORAL 07/17/19 21:00 07/23/19 17:59 07/18/19 09:27 Dextrose (Dextrose 50%) 25 ml Q30M PRN IV Hypoglycemia 07/17/19 17:30 09/20/19 18:59 Dextrose (Dextrose 50%) 50 ml Q30M PRN IV Hypoglycemia 07/17/19 17:30 09/20/19 18:59 Digoxin (Lanoxin) 0.125 mg DAILY ORAL 07/18/19 09:00 10/03/19 08:59 07/18/19 09:27 Furosemide (Lasix) 20 mg DAILY IV 07/18/19 09:00 08/12/19 12:29 07/18/19 09:27 Heparin Sodium (Porcine) (Heparin 5000 units/ml) 5,000 units EVERY 12 HOURS SUBQ 07/17/19 21:00 08/19/19 20:59 Hydroxyzine HCl (Atarax) 25 mg Q8H PRN ORAL Itching 07/17/19 17:13 08/16/19 17:12 Metoprolol Tartrate (Lopressor) 50 mg EVERY 12 HOURS ORAL 07/17/19 21:00 09/30/19 20:59 Assessment/Plan Problems: (1) Pulmonary edema (2) RLL pneumonia (3) Collapse of left lung Assessment & Plan: resolved (4) Pleural effusion (5) Chronic anticoagulation (6) Ribs, multiple fractures (7) Atrial fibrillation (8) Pacemaker (9) COPD (chronic obstructive pulmonary disease) (10) KELVIN (obstructive sleep apnea) Assessment/Plan episodes of short of breath, pt is too fragile to go home. PT recommending acute rehab. diuresing well, total intake and output is 12 liters positive transfuse one more prbc cxr from 07/14: Increased right upper lobe infiltrates no new complains incentive spirometry chest PT only to left site afebrile, COVID negative times bryce barbosa planning in process Kelly Mejia MD Jul 18, 2019 16:58
[2019-07-18 18:47] VITALS: BP 102/64
--- NOTE | 2019-07-18 19:14 | NUR ---
NURSE NOTES: Pt. received from IRA Waldron. Pt. awake and alert x3, on NC 2L, breathing even and unlabored, no complaints of pain at this time. IV left wrist 24g intact and patent, saline locked. Endorsed pt as high fall risk, pt. close to nurse's station, side rails x3 up, bed low and locked, bed alarm active, and call light in reach.
--- NOTE | 2019-07-18 19:14 | NUR ---
HAND-OFF: Report given to Kevin.
[2019-07-18 20:00] VITALS: BP 113/55
--- NOTE | 2019-07-18 20:30 | Infectious Diseases Prog Note ---
Assessment/Plan Assessment/Plan Assessment: Low grade fever; intermittent- SP No leukocytosis> mild leukopenia -07/03 Bcx Neg -06/21 u/a wbc 15-20, nit neg, leuk+3; UCx <10 mixed urogenital contaminants PNA- COVID19 neg x2 -07/14 CXR: Increased right upper lobe infiltrates -07/12 CXR: Increasing bilateral basilar infiltrates/edema and pleural effusions, over 2 days -07/08 SARS-COV2 PCR neg -07/07 CXR: Interim right chest tube removal. No evidence of pneumothorax. Worsening bilateral parenchymal infiltrates versus edema. Right lateral basilar pleural thickening versus fluid -07/05 CXR: . Slightly improved moderate left pleural effusion. Slightly improved left perihilar interstitial thickening and lower lung opacity. Minimally improved right interstitial thickening and perihilar and lower lobe opacities. Improving right chest wall emphysema. Stable right chest tube. -06/26 CXR: Pulmonary vascular congestion, similar to mildly increased from the prior exam. No significant change in the small right pleural effusion or subtle infiltrate in the right lung base. -06/25 SARS-COV2 PCR neg -06/23 CXR: Right basilar infiltrate with trace right effusion. s/p Mechanical fall Rib, abdominal pain- 2ry to R rib fractures and large R pleural effusion/ hemothorax ?Post-op pos-obstructive PNA -07/03 CXR: . Interval development of diffuse opacification of the left lung. This raises possibility of having developed a left mainstem bronchus obstruction with postobstructive atelectasis. Alternatively a very large left effusion or severe left-sided pneumonia could have similar appearance, although unlikely to have developed since the prior exam. -07/01 SP Flexible bronchoscopy. Right video-assisted thoracoscopic surgery. Intrapleural pneumolysis.Evacuation of right intrathoracic blood. Intercostal nerve block. --OR Findings: Minimal amount of mucopurulent secretion was lavaged and suctioned clear. Righ hemithorax: There was noted to be some adhesions There was noted to be no protrusion of any fractured ribs into the intrathoracic cavity as the entire parietal pleura appears to be intact. -- cx neg (aerobic and anaerobic) --AFB smear neg; cx p -06/25 Chest US: Small right pleural effusion, decreased compared to the prior exam. No significant pocket for thoracentesis. -06/22 Chest US: Positive for right pleural effusion -06/[address]: 1. 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 No acute intracranial pathology is detected. CT C/abd/p:No evidence of acute injury to the abdominal or pelvic viscera. Somewhat limited study due to motion artifact. Cholelithiasis. Acute posterior medial lower right rib fractures. Moderate to large right pleural effusion, possibly containing an element of the hemothorax. Cardiomegaly.ASCVD. No pneumothoraces. Acute on chronic anemia -08/06/18 sp EGD: Normal upper endoscopy, status post biopsy. -path: mild chronic gastritis, no H. pylori identified pAfib hx of rib fractures Sinus node dysfunction s/p PPM (batter exchange July 2018) s/p KELI GERD polycythemia vera HLD MDD anemia NSTEMI s/p normal cardiac catheterization 2019 HTN KELVIN dCHF Plan: monitor off abx -07/17 SP Cefdinir #2(Abx #22) -07/15 SP Zosyn #13 -07/03 SP Ceftriaxone #9 -f/u cx -Monitor CBC/CMP, temperatures -aspiration precautions -Pulm, CT sx, cards f/u -COVID 19 neg x2; ok to dc isolation -sp cx DW RN Thank you for consulting [facility]. Will contiue to follow along with you. Subjective Allergies: Coded Allergies: No Known Allergies (Unverified , 04/24/18) Subjective Afebrile. feels well. denies sob or pain Objective Vital Signs Last 24 Hour Vital Signs Date Time Temp Pulse Resp B/P (MAP) Pulse Ox O2 Delivery O2 Flow Rate FiO2 07/18/19 18:47 97.0 66 18 102/64 (77) 97 07/18/19 16:00 97.3 63 18 96/47 (63) 99 07/18/19 12:00 98.0 71 18 103/56 (72) 95 07/18/19 09:27 68 07/18/19 09:00 Nasal Cannula 2.0 07/18/19 09:00 68 99/50 07/18/19 08:00 97.8 68 18 99/50 (66) 93 07/18/19 04:00 98.2 69 18 114/68 (83) 93 07/17/19 23:26 98.1 61 20 112/56 (74) 97 07/17/19 21:16 Nasal Cannula 2.0 07/17/19 20:58 60 98/53 07/17/19 20:32 98.4 60 20 98/53 (68) 96 Height (Feet): 5 Height (Inches): 0.00 Weight (Pounds): 136 General Appearance: no acute distress HEENT: normocephalic, atraumatic, anicteric Respiratory/Chest: no respiratory distress, no accessory muscle use Abdomen: soft, non tender, non distended, no mass Neurologic/Psychiatric: alert, responsive Current Medications Medications (Trade) Dose Ordered Sig/Escobar Route PRN Reason Start Time Stop Time Status Last Admin Dose Admin Acetaminophen (Tylenol) 650 mg Q4H PRN ORAL T>100.5 07/17/19 17:13 08/16/19 17:12 Amiodarone HCl (Cordarone) 200 mg QHS ORAL 07/17/19 21:00 09/30/19 20:59 07/17/19 20:57 Dextrose (Dextrose 50%) 25 ml Q30M PRN IV Hypoglycemia 07/17/19 17:30 09/20/19 18:59 Dextrose (Dextrose 50%) 50 ml Q30M PRN IV Hypoglycemia 07/17/19 17:30 09/20/19 18:59 Digoxin (Lanoxin) 0.125 mg DAILY ORAL 07/18/19 09:00 10/03/19 08:59 07/18/19 09:27 Furosemide (Lasix) 20 mg DAILY IV 07/18/19 09:00 08/12/19 12:29 07/18/19 09:27 Heparin Sodium (Porcine) (Heparin 5000 units/ml) 5,000 units EVERY 12 HOURS SUBQ 07/17/19 21:00 08/19/19 20:59 Hydroxyzine HCl (Atarax) 25 mg Q8H PRN ORAL Itching 07/17/19 17:13 08/16/19 17:12 Metoprolol Tartrate (Lopressor) 50 mg EVERY 12 HOURS ORAL 07/17/19 21:00 09/30/19 20:59 Boaz aKur MD Jul 18, 2019 20:30
[2019-07-18] MEDS: Amiodarone 200mg tab ORAL SCH (20:47)
[2019-07-19] VITALS: BP 105/53
[2019-07-19 04:00] VITALS: BP 107/59
--- NOTE | 2019-07-19 07:11 | NUR ---
HAND-OFF: Report given to IRA Waldron.
--- NOTE | 2019-07-19 07:21 | Pulmonology Progress Note ---
Subjective Interval Events: Allergies: Coded Allergies: No Known Allergies (Unverified , 04/24/18) Subjective no fevers , no leukocytosis on O2 2 L via NC no signs of resp distress Objective Last 24 Hour Vital Signs Date Time Temp Pulse Resp B/P (MAP) Pulse Ox O2 Delivery O2 Flow Rate FiO2 07/19/19 04:00 97.9 63 16 107/59 (75) 90 07/19/19 00:00 98.1 60 18 105/53 (70) 90 07/18/19 21:00 Nasal Cannula 2.0 07/18/19 20:47 65 113/55 07/18/19 20:00 97.9 65 20 113/55 (74) 91 07/18/19 18:47 97.0 66 18 102/64 (77) 97 07/18/19 16:00 97.3 63 18 96/47 (63) 99 07/18/19 12:00 98.0 71 18 103/56 (72) 95 07/18/19 09:27 68 07/18/19 09:00 Nasal Cannula 2.0 07/18/19 09:00 68 99/50 07/18/19 08:00 97.8 68 18 99/50 (66) 93 Intake and Output 07/18/19 07/19/19 19:00 07:00 Intake Total 300 ml 200 ml Balance 300 ml 200 ml Intake Oral 300 ml 200 ml # Voids 2 1 # Bowel Movements 2 Objective Condition: stable General: elderly female in NAD HEENT: atraumatic, O2 via NC Lungs: BS overall clear, d Heart: HR/BP stable, Abdomen: soft, non-tender, active bowel sounds, Extremities: no edema Laboratory Tests 07/19/19 06:05: White Blood Count [Pending], Red Blood Count [Pending], Hemoglobin [Pending], Hematocrit [Pending], Mean Corpuscular Volume [Pending], Mean Corpuscular Hemoglobin [Pending], Mean Corpuscular Hemoglobin Concent [Pending], Red Cell Distribution Width [Pending], Platelet Count [Pending], Mean Platelet Volume [ Pending], Neutrophils (%) (Auto) [Pending], Lymphocytes (%) (Auto) [Pending], Monocytes (%) (Auto) [Pending], Eosinophils (%) (Auto) [Pending], Basophils (%) (Auto) [Pending], Sodium Level [Pending], Potassium Level [Pending], Chloride Level [Pending], Carbon Dioxide Level [Pending], Blood Urea Nitrogen [Pending], Creatinine [Pending], Estimat Glomerular Filtration Rate [Pending], Glucose Level [Pending], Calcium Level [Pending] Current Medications Medications (Trade) Dose Ordered Sig/Escobar Route PRN Reason Start Time Stop Time Status Last Admin Dose Admin Acetaminophen (Tylenol) 650 mg Q4H PRN ORAL T>100.5 07/17/19 17:13 08/16/19 17:12 Amiodarone HCl (Cordarone) 200 mg QHS ORAL 07/17/19 21:00 09/30/19 20:59 07/18/19 20:47 Dextrose (Dextrose 50%) 25 ml Q30M PRN IV Hypoglycemia 07/17/19 17:30 09/20/19 18:59 Dextrose (Dextrose 50%) 50 ml Q30M PRN IV Hypoglycemia 07/17/19 17:30 09/20/19 18:59 Digoxin (Lanoxin) 0.125 mg DAILY ORAL 07/18/19 09:00 10/03/19 08:59 07/18/19 09:27 Furosemide (Lasix) 20 mg DAILY IV 07/18/19 09:00 08/12/19 12:29 07/18/19 09:27 Heparin Sodium (Porcine) (Heparin 5000 units/ml) 5,000 units EVERY 12 HOURS SUBQ 07/17/19 21:00 08/19/19 20:59 Hydroxyzine HCl (Atarax) 25 mg Q8H PRN ORAL Itching 07/17/19 17:13 08/16/19 17:12 Metoprolol Tartrate (Lopressor) 50 mg EVERY 12 HOURS ORAL 07/17/19 21:00 09/30/19 20:59 07/18/19 20:47 Assessment/Plan Assessment/Plan ASSESSMENT s/p mechanical fall with acute multiple rib fractures Right pleural effusion , moderate to large with probable associated hemothorax Right hemothorax s/p flexible bronchoscopy, right video-assisted thoracoscopic surgery, intrapleural pneumolysis, evacuation of right intrathoracic blood, intercostal nerve block 07/01 Acute resp failure ( remained intubated after surgery), s/p extubation 07/02, now on O2 via NC Right sided chest tube , s/p removal Probably pneumonia Atelectasis, collapsed L lung COPD Suspected COVID 19 - not detected History of KELVIN PAF CHF with diastolic dysfunction Pulmonary edema SSS, status post pacemaker/interrogated, normal fx Profound anemia, s/p 3 u PRBC Hx of polycythemia vera Severe pulmonary HTN Hypokalemia PLAN OF CARE MS floor O2 titrate to keep sat above 90%, pulm toilet fup with CXR in am Venous Duplex BLE -NGT, SCD chest tube was prior dc off anticoagulation 2 to anemia; continue amiodarone , Digoxin and BB, as per cardio CT head - no acute IC pathology CT C/A/P noted ; 06/22 US chest noted, m to l R pleural effusion 06/25 US chest with Small right pleural effusion, decreased compared to the prior exam. No significant pocket for thoracentesis. SARS COV-2 by PCR 06/25 not detected , 07/08 not detected as well abx as per ID, on Zosyn intra-oper cx NGTD, AFB smear NGT, BCX 07/03 NGTD Hgb at baseline, no trend down; s/p prior transfusion total 6 u of PRBC cardio follows on Lasix, monitor volumes and cardiorenal parameters pro BNP trending down rate control with BB , Digoxin and Amiodarone ECHO with pEF and RVSP of 71 c/w severe pulm HTN pain management supportive care fall precaution case discussed and evaluated by supervising physician Cait Melchor NP Jul 19, 2019 07:21
[2019-07-19 07:34] LABS: BASOPHILS % (AUTO) 2.4 % (0.0-2.0); EOSINOPHILS % (AUTO) 0.7 % (0.0-3.0); HEMATOCRIT 26.3 % (37.0-47.0); MEAN CORPUSCULAR VOLUME 88 FL (80-99); MONOCYTES % (AUTO) 4.8 % (1.0-10.0); NEUTROPHILS % (AUTO) 78.2 % (45.0-75.0); PLATELET COUNT 136 K/UL (150-450); RED BLOOD COUNT 2.98 M/UL (4.20-5.40); RED CELL DISTRIBUTION WIDTH 15.8 % (11.6-14.8); WHITE BLOOD COUNT 4.3 K/UL (4.8-10.8)
[2019-07-19 07:35] LABS: ANION GAP 5 mmol/L (5-15); BLOOD UREA NITROGEN 13 mg/dL (7-18); CALCIUM 8.4 MG/DL (8.5-10.1); CARBON DIOXIDE 32 MMOL/L (21-32); CHLORIDE 104 MMOL/L (98-107); CREATININE 0.7 MG/DL (0.55-1.30); POTASSIUM 4.4 MMOL/L (3.5-5.1); SODIUM 141 MMOL/L (136-145)
--- NOTE | 2019-07-19 07:42 | NUR ---
NURSE NOTES: pt is asleep and arousable in the bed. respiration is even and unlabored. no acute distress noted at this time. call light is placed within reach.
[2019-07-19 08:00] VITALS: BP 97/64
[2019-07-19] MEDS: Heparin 5000 units/ml inj SUBQ SCH ×2 (09:00→20:55)
[2019-07-19] MEDS: Metoprolol Tartrate 50mg tab ORAL SCH ×2 (09:00→20:54)
[2019-07-19] MEDS: Digoxin 0.125mg tab ORAL SCH (09:40)
--- NOTE | 2019-07-19 10:06 | NUR ---
RD ASSESSMENT & RECOMMENDATIONS SEE CARE ACTIVITY FOR COMPLETE ASSESSMENT DAILY ESTIMATED NEEDS: Needs based on Cardiac/ 61kg 25-35kcal/kg kcals/kg 0158-2026 total kcals 1.25-1.5 g protein/kg 76-92 g total protein On lasix, fluid per MD NUTRITION DIAGNOSIS: Decreased sodium needs r/t cardiac history and clinical status as evidenced by pt w/ CHF, elev BNP (7896-> 1958->8388-> 2668), on lasix. CURRENT DIET:REGULAR, ms chopped PO DIET RECOMMENDATIONS: Maintain liberalized regular if w/ continued poor/variable PO ADDITIONAL RECOMMENDATIONS: 1) Daily accurate weights w/ diuretics (143lbs->131lbs->150lbs) Wt are widely variable, obtain a calibrated bed wt 2) LOW NA diet w/ PO intake consistently >50% 3) Ensure Enlive (chocolate per pt request) TID w/ meals 4) Monitor for hypoglycemia w/ poor PO- monitor need for added D5 5) Wound care: add DORIE BID + Vit C 250mg daily (rec WC eval) 6) replete lytes as needed.
[2019-07-19 12:00] VITALS: BP 95/61
--- NOTE | 2019-07-19 12:01 | Cardiac Electrophysiology PN ---
Assessment/Plan Assessment/Plan 1. Status post [employer] pacer in 2010 and Gen change by me in 07/2018 with normal function. 2. PAF with RVR. In SR/A paced on amiodarone 200 mg daily ,metoprolol 50 mg b.i.d. and Dig 0.125 po daily Off anticoagulation for severe anemia, needing blood transfusion. 3. Chest pain, Ruled out for myocardial infarction. EF on 06/26/2019 was 55% 4. Urinary tract infection.On Abx 5. Hypertension. Continue metoprolol at this time. 6. Polycythemia vera, 7. Recurrent falls. . 8. Severe pulmonary hypertension. PA pressure of 71. 9. Hemothorax. S/P VATS by Dr Malik. Chest tube is removed 10. Anemia DW RN Subjective Subjective Alert in NAD. No CP or SOB. Wants to go home Objective Last 24 Hour Vital Signs Date Time Temp Pulse Resp B/P (MAP) Pulse Ox O2 Delivery O2 Flow Rate FiO2 07/19/19 09:40 63 07/19/19 09:00 Nasal Cannula 2.0 07/19/19 09:00 63 97/64 07/19/19 08:00 97.5 63 17 97/64 (75) 94 07/19/19 04:00 97.9 63 16 107/59 (75) 90 07/19/19 00:00 98.1 60 18 105/53 (70) 90 07/18/19 21:00 Nasal Cannula 2.0 07/18/19 20:47 65 113/55 07/18/19 20:00 97.9 65 20 113/55 (74) 91 07/18/19 18:47 97.0 66 18 102/64 (77) 97 07/18/19 16:00 97.3 63 18 96/47 (63) 99 Intake and Output 07/18/19 07/19/19 19:00 07:00 Intake Total 300 ml 200 ml Balance 300 ml 200 ml Intake Oral 300 ml 200 ml # Voids 2 1 # Bowel Movements 2 Laboratory Tests Test 07/19/19 06:05 White Blood Count 4.3 K/UL (4.8-10.8) L Red Blood Count 2.98 M/UL (4.20-5.40) L Hemoglobin 9.0 G/DL (12.0-16.0) L Hematocrit 26.3 % (37.0-47.0) L Mean Corpuscular Volume 88 FL (80-99) Mean Corpuscular Hemoglobin 30.4 PG (27.0-31.0) Mean Corpuscular Hemoglobin Concent 34.4 G/DL (32.0-36.0) Red Cell Distribution Width 15.8 % (11.6-14.8) H Platelet Count 136 K/UL (150-450) L Mean Platelet Volume 9.7 FL (6.5-10.1) Neutrophils (%) (Auto) 78.2 % (45.0-75.0) H Lymphocytes (%) (Auto) 14.0 % (20.0-45.0) L Monocytes (%) (Auto) 4.8 % (1.0-10.0) Eosinophils (%) (Auto) 0.7 % (0.0-3.0) Basophils (%) (Auto) 2.4 % (0.0-2.0) H Sodium Level 141 MMOL/L (136-145) Potassium Level 4.4 MMOL/L (3.5-5.1) Chloride Level 104 MMOL/L (98-107) Carbon Dioxide Level 32 MMOL/L (21-32) Anion Gap 5 mmol/L (5-15) Blood Urea Nitrogen 13 mg/dL (7-18) Creatinine 0.7 MG/DL (0.55-1.30) Estimat Glomerular Filtration Rate > 60 mL/min (>60) Glucose Level 79 MG/DL (74-106) Calcium Level 8.4 MG/DL (8.5-10.1) L Objective HEAD AND NECK: No JVD LUNGS: Coarse rhonchi. CARDIOVASCULAR: Shows regular S1 and S2 with no gallop. ABDOMEN: Soft. EXTREMITIES: No pitting edema. SKIN: The pacemaker in the left subclavian intact. River Freitas MD Jul 19, 2019 12:01
--- NOTE | 2019-07-19 14:47 | Internal Med Progress Note ---
Subjective Date of Service: Jul 19, 2019 Physician Name Roshan Edwards Attending Physician Antonio Adrian MD Current Medications Medications (Trade) Dose Ordered Sig/Escobar Route PRN Reason Start Time Stop Time Status Last Admin Dose Admin Acetaminophen (Tylenol) 650 mg Q4H PRN ORAL T>100.5 07/17/19 17:13 08/16/19 17:12 Amiodarone HCl (Cordarone) 200 mg QHS ORAL 07/17/19 21:00 09/30/19 20:59 07/18/19 20:47 Dextrose (Dextrose 50%) 25 ml Q30M PRN IV Hypoglycemia 07/17/19 17:30 09/20/19 18:59 Dextrose (Dextrose 50%) 50 ml Q30M PRN IV Hypoglycemia 07/17/19 17:30 09/20/19 18:59 Digoxin (Lanoxin) 0.125 mg DAILY ORAL 07/18/19 09:00 10/03/19 08:59 07/19/19 09:40 Furosemide (Lasix) 20 mg DAILY IV 07/18/19 09:00 08/12/19 12:29 07/19/19 09:41 Heparin Sodium (Porcine) (Heparin 5000 units/ml) 5,000 units EVERY 12 HOURS SUBQ 07/17/19 21:00 08/19/19 20:59 Hydroxyzine HCl (Atarax) 25 mg Q8H PRN ORAL Itching 07/17/19 17:13 08/16/19 17:12 Metoprolol Tartrate (Lopressor) 50 mg EVERY 12 HOURS ORAL 07/17/19 21:00 09/30/19 20:59 07/18/19 20:47 Allergies: Coded Allergies: No Known Allergies (Unverified , 04/24/18) ROS Limited/Unobtainable: No Constitutional: Reports: no symptoms HEENT: Reports: no symptoms Cardiovascular: Reports: no symptoms Respiratory: Reports: no symptoms Gastrointestinal/Abdominal: Reports: no symptoms Genitourinary: Reports: no symptoms Neurologic/Psychiatric: Reports: no symptoms Subjective 79 YO F admitted with atypical chest pain. Now severe anemia and acute congestive heart failure. Cover for Int Germán-Dr Adrian. S/P video assisted thoracoscopic exploratory surgery 07/02/19. Tele Objective Last Vital Signs Date Time Temp Pulse Resp B/P (MAP) Pulse Ox O2 Delivery O2 Flow Rate FiO2 6/7/20 12:00 97.5 60 16 95/61 (72) 95 07/19/19 09:00 Nasal Cannula 2.0 07/17/19 19:08 28 Laboratory Tests Test 07/19/19 06:05 White Blood Count 4.3 K/UL (4.8-10.8) L Red Blood Count 2.98 M/UL (4.20-5.40) L Hemoglobin 9.0 G/DL (12.0-16.0) L Hematocrit 26.3 % (37.0-47.0) L Mean Corpuscular Volume 88 FL (80-99) Mean Corpuscular Hemoglobin 30.4 PG (27.0-31.0) Mean Corpuscular Hemoglobin Concent 34.4 G/DL (32.0-36.0) Red Cell Distribution Width 15.8 % (11.6-14.8) H Platelet Count 136 K/UL (150-450) L Mean Platelet Volume 9.7 FL (6.5-10.1) Neutrophils (%) (Auto) 78.2 % (45.0-75.0) H Lymphocytes (%) (Auto) 14.0 % (20.0-45.0) L Monocytes (%) (Auto) 4.8 % (1.0-10.0) Eosinophils (%) (Auto) 0.7 % (0.0-3.0) Basophils (%) (Auto) 2.4 % (0.0-2.0) H Sodium Level 141 MMOL/L (136-145) Potassium Level 4.4 MMOL/L (3.5-5.1) Chloride Level 104 MMOL/L (98-107) Carbon Dioxide Level 32 MMOL/L (21-32) Anion Gap 5 mmol/L (5-15) Blood Urea Nitrogen 13 mg/dL (7-18) Creatinine 0.7 MG/DL (0.55-1.30) Estimat Glomerular Filtration Rate > 60 mL/min (>60) Glucose Level 79 MG/DL (74-106) Calcium Level 8.4 MG/DL (8.5-10.1) L Intake and Output 07/18/19 07/19/19 19:00 07:00 Intake Total 300 ml 200 ml Balance 300 ml 200 ml Intake Oral 300 ml 200 ml # Voids 2 1 # Bowel Movements 2 Objective PHYSICAL EXAMINATION: GENERAL: The patient is well-developed and well-nourished female, in no apparent distress. HEENT: Eyes, pupils are equal and responsive to light and accommodation. Extraocular movements are intact. NECK: Supple without lymphadenopathy. CHEST: nasal canula; Lungs with coarse upper airway sounds without wheezes or rales. CARDIOVASCULAR: Regular rate. S1 and S2 normal without murmurs, rubs, or gallops. ABDOMEN: Soft, nontender, and nondistended. Positive bowel sounds. No evidence of hepatosplenomegaly. Currently, no rebound or guarding noted. EXTREMITIES: Negative for clubbing, cyanosis, or edema. RECTAL/GENITAL: Not performed. NEUROLOGIC: Cranial nerves II through XII are grossly intact without focal deficits. Assessment/Plan Assessment/Plan ASSESSMENT: This is an 79-year-old female. 1. Chest pain. 2. Fall injury. 3. Severe anemia. 4. Atrial fibrillation. 5. Polycythemia vera. 6. Hypertension. 7. Obstructive sleep apnea. 8. Coronary artery disease. 9. Hypercholesterolemia. 10. Congestive heart failure; [id number] 11. Right pleural hemothorax 12. Severe anemia 13. left pneumonia 14. Persistent hypokalemia-resolved 15. worsening pleural edema TREATMENT: 1. Chest pain. This may be secondary to fall injury. Initial troponin level was negative. Repeat troponin levels are pending. A Cardiology consultation has been obtained with Dr. Mainor Araujo. 2. Atrial fibrillation. As above, a Cardiology consultation has been obtained with Dr. Mainor Araujo. 3. Polycythemia vera. The patient is currently anemic. 4. Hypertension. Continue metoprolol as above. 5. Obstructive sleep apnea. 6. Coronary artery disease, status post myocardial infarction. As above, a Cardiology consultation has been obtained with Dr. Mainor Araujo. 7. Hypercholesteremia. 8. Congestive heart failure. 9. Pacemaker in situ. Pacemaker check is pending. 10. right thoracentesis pending 11. Discuss with patient regarding discharge planning, wants to go home, refused SNF. 12. CODE STATUS is full code. 13. Broad spectrum antibiotics with Rocephin IV. 14. Monitor cultures and laboratory. 15. DVT prophylaxis: SCD. 16. OOB to chair, PT Mobility 17. Dc Telemetry 18. S/P video assisted Thoracoscopic exploratory surgery 07/02/19; Thoracic surg=Dr. Malik 19. Right chest tube discontinued 07/07/19 20. S/P Transfusion 6 units PRBC 21. ABX=S/P zosyn per ID=Dr Arrieta 22. lasix for diuresis 22. Discharge planning: S. [facility] when bed available. Roshan Edwards MD Jul 19, 2019 14:47
[2019-07-19 16:00] VITALS: BP 101/68
--- NOTE | 2019-07-19 17:48 | Surgery Progress Note ---
Surgery Progress Note Subjective Procedure Performed right tube thoracostomy removal Symptoms: improved, tolerating diet, voiding well, passing flatus Objective Last 24 Hour Vital Signs Date Time Temp Pulse Resp B/P (MAP) Pulse Ox O2 Delivery O2 Flow Rate FiO2 07/19/19 12:00 97.5 60 16 95/61 (72) 95 07/19/19 09:40 63 07/19/19 09:00 Nasal Cannula 2.0 07/19/19 09:00 63 97/64 07/19/19 08:00 97.5 63 17 97/64 (75) 94 07/19/19 04:00 97.9 63 16 107/59 (75) 90 07/19/19 00:00 98.1 60 18 105/53 (70) 90 07/18/19 21:00 Nasal Cannula 2.0 07/18/19 20:47 65 113/55 07/18/19 20:00 97.9 65 20 113/55 (74) 91 07/18/19 18:47 97.0 66 18 102/64 (77) 97 I&O Intake and Output 07/18/19 07/19/19 19:00 07:00 Intake Total 300 ml 200 ml Balance 300 ml 200 ml Intake Oral 300 ml 200 ml # Voids 2 1 # Bowel Movements 2 Dressing: dry Wound: clean Cardiovascular: RSR Respiratory: clear Abdomen: soft, non-tender, present bowel sounds Extremities: no cyanosis Laboratory Tests Test 07/19/19 06:05 White Blood Count 4.3 K/UL (4.8-10.8) L Red Blood Count 2.98 M/UL (4.20-5.40) L Hemoglobin 9.0 G/DL (12.0-16.0) L Hematocrit 26.3 % (37.0-47.0) L Mean Corpuscular Volume 88 FL (80-99) Mean Corpuscular Hemoglobin 30.4 PG (27.0-31.0) Mean Corpuscular Hemoglobin Concent 34.4 G/DL (32.0-36.0) Red Cell Distribution Width 15.8 % (11.6-14.8) H Platelet Count 136 K/UL (150-450) L Mean Platelet Volume 9.7 FL (6.5-10.1) Neutrophils (%) (Auto) 78.2 % (45.0-75.0) H Lymphocytes (%) (Auto) 14.0 % (20.0-45.0) L Monocytes (%) (Auto) 4.8 % (1.0-10.0) Eosinophils (%) (Auto) 0.7 % (0.0-3.0) Basophils (%) (Auto) 2.4 % (0.0-2.0) H Sodium Level 141 MMOL/L (136-145) Potassium Level 4.4 MMOL/L (3.5-5.1) Chloride Level 104 MMOL/L (98-107) Carbon Dioxide Level 32 MMOL/L (21-32) Anion Gap 5 mmol/L (5-15) Blood Urea Nitrogen 13 mg/dL (7-18) Creatinine 0.7 MG/DL (0.55-1.30) Estimat Glomerular Filtration Rate > 60 mL/min (>60) Glucose Level 79 MG/DL (74-106) Calcium Level 8.4 MG/DL (8.5-10.1) L Plan Problems: (1) Hematothorax Assessment & Plan: s/p VATS recovering okay for diet keep chest tube to suction AM CXR will monitor and remove tube when stable okay for chest tube to water seal cxr noted tube removed respiratory percussion and suction slowly improving d/c planning Interim reexpansion of the left lung. There is considerable parenchymal disease throughout the left lung, however. Interim removal of previously demonstrated right chest tube. No pneumothorax. There is some pleural thickening Versus fluid at the right lung base. There is extensive right lung parenchymal interstitial and alveolar disease which appears increased from the previous study. The heart size is normal. Left chest pacemaker again demonstrated. Impression: Interim right chest tube removal. No evidence of pneumothorax Worsening bilateral parenchymal infiltrates versus edema Right lateral basilar pleural thickening versus fluid Borderline prominent cardiac silhouette. There is interval improvement in previously noted edema/failure and bilateral multifocal infiltrates. Small bilateral pleural effusions. Pacemaker device. Remainder little changed. IMPRESSION: Control, interval improvement in previously noted edema/failure and bilateral multifocal infiltrates. Pt presented with Incontinence Associated dermatitis perineum and buttocks.non- blanching erythema with moisture intertrigo noted to cleft of buttocks.Perianal area,R and L buttocks, and bilat ischium are erythematous and denuded. Staff reported pt is incontinent and had diarrhea previous 2 days. Pt also observed to had moisture Intertrigo abdominal folds, R and L groin area. Non-Blanching erythema without induration or fluctuance R and L Heels. Pt did not verbalize,or exhibit any distress to indicate Pain when each heel individually palpated. Tx.Plan: Apply Moisture Barrier Paste to abdominal folds, bilat groin areas with each incontinence care. Apply Moisture Barrier Paste to Buttocks. Cover Sacral area with Optifoam drsg Change every 3 days and prn. Apply Cavilon Skin Barrier to each heel. Cover each heel with Optifoam drsg. Change every 7 days and prn. Reposition at least every 2 hours or as tolerated. Off-load heels with Pillow. Errol Estrada Jul 19, 2019 17:48
--- NOTE | 2019-07-19 19:30 | NUR ---
NURSE NOTES: RECEIVED PATIENT FROM IRA CARCAMO. PATIENT IS AWAKE, AAOX4, ON NC 2L, NO ACUTE DISTRESS NOTED. PIV ON LEFT WRIST INTACT AND PATENT. WOUND DRESSING INTACT AND DRY. BED IS LOCKED AND LOW, BED ALARMS ACTIVE, SIDE RAILS UPX2 AND CALL LIGHT IS WITHIN REACH. WILL CONTINUE TO MONITOR.
--- NOTE | 2019-07-19 19:35 | NUR ---
NURSE NOTES: PATIENT IS A HIGH FALL RISK D/T HISTORY OF RECURRENT FALLS. PLACED PATIENT IN ROOM CLOSEST TO NURSING STATION. FALL PRECAUTION IMPLEMENTED, YELLOW GOWN, YELLOW SOCKS, YELLOW ARMBAND PRESENT. COMMUNICATED WITH STAFF TO PERFORM FREQUENT ROUNDING. 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
--- NOTE | 2019-07-19 19:48 | NUR ---
HAND-OFF: Report given to PALACIOS.
[2019-07-19 20:00] VITALS: BP 97/52
[2019-07-19] MEDS: Amiodarone 200mg tab ORAL SCH (21:00)
[2019-07-20] VITALS: BP 109/56
[2019-07-20 04:00] VITALS: BP 98/50
--- NOTE | 2019-07-20 04:00 | NUR ---
NURSE NOTES: APPLIED CALAZIME CREAM TO PERINEUM AREA AND BUTTOCKS. APPLIED OPTIFOAM ON SACRAL.
[2019-07-20 07:10] LABS: ANION GAP 4 mmol/L (5-15); BLOOD UREA NITROGEN 17 mg/dL (7-18); CALCIUM 8.1 MG/DL (8.5-10.1); CARBON DIOXIDE 33 MMOL/L (21-32); CHLORIDE 104 MMOL/L (98-107); CREATININE 0.8 MG/DL (0.55-1.30); POTASSIUM 4.2 MMOL/L (3.5-5.1); SODIUM 141 MMOL/L (136-145)
[2019-07-20 07:29] LABS: BASOPHILS % (AUTO) 1.8 % (0.0-2.0); EOSINOPHILS % (AUTO) 0.2 % (0.0-3.0); HEMATOCRIT 27.1 % (37.0-47.0); HEMOGLOBIN 9.3 G/DL (12.0-16.0); LYMPHOCYTES % (AUTO) 15.3 % (20.0-45.0); MEAN CORPUSCULAR VOLUME 89 FL (80-99); NEUTROPHILS % (AUTO) 78.6 % (45.0-75.0); PLATELET COUNT 158 K/UL (150-450); RED BLOOD COUNT 3.05 M/UL (4.20-5.40); RED CELL DISTRIBUTION WIDTH 15.5 % (11.6-14.8); WHITE BLOOD COUNT 4.1 K/UL (4.8-10.8)
--- NOTE | 2019-07-20 07:34 | NUR ---
HAND-OFF: Report given to IRA Morris.
[2019-07-20 08:00] VITALS: BP 98/50
--- NOTE | 2019-07-20 08:02 | NUR ---
NURSE NOTES: Report received from Emelina, RN. Pt received awake in bed, alert and oriented x 3-4, no SOB noted, no c/o any discomfort at this time, bed in lowest position with breaks engaged and alarm on, IV line on left wrist patent and intact, will continue to monitor and proceed with plan of care, call light within reach.
[2019-07-20] MEDS: Heparin 5000 units/ml inj SUBQ SCH (09:46)
[2019-07-20] MEDS: Digoxin 0.125mg tab ORAL SCH (09:53)
[2019-07-20] MEDS: Metoprolol Tartrate 50mg tab ORAL SCH (09:54)
--- NOTE | 2019-07-20 10:28 | NUR ---
NURSE NOTES: As per Dr. Adrian, okay to give Digoxin, Metoprolol in the morning, relayed most recent BP 97/50. IV lasix changed to PO Lasix 20 mg PO QD given in the AM also per . Pt c/o itchiness in both eyes, Dr. Adrian ordered Patenol 1 drop Q8 PRN noted. Addendum: 07/20/19 at 1233 by Alexandra Flanagan RN As per Pharmacy, they have Zatidor readily available instead of Patanol, asked MD if its okay to substitute to formulary alternative which is the Zatidor with same frequency, MD agreed. Noted and carried out.
--- NOTE | 2019-07-20 10:53 | NUR ---
RADIOLOGY DEPT., CHEST X-RAY DONE.-P.DYE
--- NOTE | 2019-07-20 10:58 | Cardiac Electrophysiology PN ---
Assessment/Plan Assessment/Plan 1. Status post [employer] pacer in 2010 and Gen change by me in 07/2018 with normal function. 2. PAF with RVR. In SR/A paced on amiodarone 200 mg daily ,metoprolol 50 mg b.i.d. and Dig 0.125 po daily Off anticoagulation for severe anemia, needing blood transfusion. 3. Chest pain, Ruled out for myocardial infarction. EF on 06/26/2019 was 55% 4. Urinary tract infection.On Abx 5. Hypertension. Continue metoprolol at this time. 6. Polycythemia vera, 7. Recurrent falls. . 8. Severe pulmonary hypertension. PA pressure of 71. 9. Hemothorax. S/P VATS by Dr Malik. Chest tube is removed 10. Anemia 11. Generalized weakness. OT/PT working with the patient DW RN Subjective Subjective Alert in NAD. No CP or SOB. RN at bedside Objective Last 24 Hour Vital Signs Date Time Temp Pulse Resp B/P (MAP) Pulse Ox O2 Delivery O2 Flow Rate FiO2 07/20/19 09:54 64 98/50 07/20/19 09:53 65 07/20/19 09:00 Nasal Cannula 2.0 07/20/19 08:00 97.3 65 20 98/50 (66) 96 07/20/19 04:00 99.3 64 17 98/50 (66) 98 07/20/19 00:00 98.8 66 18 109/56 (73) 100 07/19/19 21:00 Nasal Cannula 2.0 07/19/19 20:54 66 97/52 07/19/19 20:10 96 Nasal Cannula 2.0 28 07/19/19 20:00 98.6 66 19 97/52 (67) 97 07/19/19 16:00 98.1 63 17 101/68 (79) 94 07/19/19 12:00 97.5 60 16 95/61 (72) 95 Intake and Output 07/19/19 07/20/19 19:00 07:00 Intake Total 250 ml Balance 250 ml Intake Oral 250 ml # Voids 2 4 # Bowel Movements 2 Laboratory Tests Test 07/20/19 06:00 White Blood Count 4.1 K/UL (4.8-10.8) L Red Blood Count 3.05 M/UL (4.20-5.40) L Hemoglobin 9.3 G/DL (12.0-16.0) L Hematocrit 27.1 % (37.0-47.0) L Mean Corpuscular Volume 89 FL (80-99) Mean Corpuscular Hemoglobin 30.4 PG (27.0-31.0) Mean Corpuscular Hemoglobin Concent 34.2 G/DL (32.0-36.0) Red Cell Distribution Width 15.5 % (11.6-14.8) H Platelet Count 158 K/UL (150-450) Mean Platelet Volume 11.2 FL (6.5-10.1) H Neutrophils (%) (Auto) 78.6 % (45.0-75.0) H Lymphocytes (%) (Auto) 15.3 % (20.0-45.0) L Monocytes (%) (Auto) 4.0 % (1.0-10.0) Eosinophils (%) (Auto) 0.2 % (0.0-3.0) Basophils (%) (Auto) 1.8 % (0.0-2.0) Sodium Level 141 MMOL/L (136-145) Potassium Level 4.2 MMOL/L (3.5-5.1) Chloride Level 104 MMOL/L (98-107) Carbon Dioxide Level 33 MMOL/L (21-32) H Anion Gap 4 mmol/L (5-15) L Blood Urea Nitrogen 17 mg/dL (7-18) Creatinine 0.8 MG/DL (0.55-1.30) Estimat Glomerular Filtration Rate > 60 mL/min (>60) Glucose Level 83 MG/DL (74-106) Calcium Level 8.1 MG/DL (8.5-10.1) L Objective HEAD AND NECK: No JVD LUNGS: Coarse rhonchi. CARDIOVASCULAR: regular S1 and S2 with no gallop. ABDOMEN: Soft. EXTREMITIES: No pitting edema. SKIN: The pacemaker in the left subclavian intact. River Freitas MD Jul 20, 2019 10:58
--- NOTE | 2019-07-20 11:39 | Diagnostic Imaging Report ---
Indication: Shortness of breath Technique: One view of the chest Comparison: 07/15/2019 Findings: Infiltrates on the right have improved markedly, residual infiltrate now limited to the right lung base and right suprahilar region. There is also been improvement of the left lung infiltrates, with persistent disease at the left lung base. There is persistent left pleural effusion. Left chest pacemaker remains. Impression: Interim considerable improvement of previously demonstrated bilateral infiltrates, since prior study of 07/15/2019. There is persistent disease at both lung bases and the right suprahilar region, however. Persistent small left pleural effusion
--- NOTE | 2019-07-20 11:45 | Surgery Progress Note ---
Surgery Progress Note Subjective Procedure Performed right tube thoracostomy removal Symptoms: improved, tolerating diet, voiding well, passing flatus, BM Additional Comments Interim considerable improvement of previously demonstrated bilateral infiltrates, since prior study of 07/15/2019. There is persistent disease at both lung bases and the right suprahilar region, however. Persistent small left pleural effusion Objective Last 24 Hour Vital Signs Date Time Temp Pulse Resp B/P (MAP) Pulse Ox O2 Delivery O2 Flow Rate FiO2 07/20/19 09:54 64 98/50 07/20/19 09:53 65 07/20/19 09:00 Nasal Cannula 2.0 07/20/19 08:00 97.3 65 20 98/50 (66) 96 07/20/19 04:00 99.3 64 17 98/50 (66) 98 07/20/19 00:00 98.8 66 18 109/56 (73) 100 07/19/19 21:00 Nasal Cannula 2.0 07/19/19 20:54 66 97/52 07/19/19 20:10 96 Nasal Cannula 2.0 28 07/19/19 20:00 98.6 66 19 97/52 (67) 97 07/19/19 16:00 98.1 63 17 101/68 (79) 94 07/19/19 12:00 97.5 60 16 95/61 (72) 95 I&O Intake and Output 07/19/19 07/20/19 19:00 07:00 Intake Total 250 ml Balance 250 ml Intake Oral 250 ml # Voids 2 4 # Bowel Movements 2 Dressing: dry Wound: clean Cardiovascular: RSR Respiratory: clear Abdomen: soft, non-tender, present bowel sounds Extremities: no tenderness, no cyanosis Laboratory Tests Test 07/20/19 06:00 White Blood Count 4.1 K/UL (4.8-10.8) L Red Blood Count 3.05 M/UL (4.20-5.40) L Hemoglobin 9.3 G/DL (12.0-16.0) L Hematocrit 27.1 % (37.0-47.0) L Mean Corpuscular Volume 89 FL (80-99) Mean Corpuscular Hemoglobin 30.4 PG (27.0-31.0) Mean Corpuscular Hemoglobin Concent 34.2 G/DL (32.0-36.0) Red Cell Distribution Width 15.5 % (11.6-14.8) H Platelet Count 158 K/UL (150-450) Mean Platelet Volume 11.2 FL (6.5-10.1) H Neutrophils (%) (Auto) 78.6 % (45.0-75.0) H Lymphocytes (%) (Auto) 15.3 % (20.0-45.0) L Monocytes (%) (Auto) 4.0 % (1.0-10.0) Eosinophils (%) (Auto) 0.2 % (0.0-3.0) Basophils (%) (Auto) 1.8 % (0.0-2.0) Sodium Level 141 MMOL/L (136-145) Potassium Level 4.2 MMOL/L (3.5-5.1) Chloride Level 104 MMOL/L (98-107) Carbon Dioxide Level 33 MMOL/L (21-32) H Anion Gap 4 mmol/L (5-15) L Blood Urea Nitrogen 17 mg/dL (7-18) Creatinine 0.8 MG/DL (0.55-1.30) Estimat Glomerular Filtration Rate > 60 mL/min (>60) Glucose Level 83 MG/DL (74-106) Calcium Level 8.1 MG/DL (8.5-10.1) L Plan Problems: (1) Hematothorax Assessment & Plan: s/p VATS recovering okay for diet keep chest tube to suction AM CXR will monitor and remove tube when stable okay for chest tube to water seal cxr noted tube removed respiratory percussion and suction slowly improving d/c planning Interim considerable improvement of previously demonstrated bilateral infiltrates, since prior study of 07/15/2019. There is persistent disease at both lung bases and the right suprahilar region, however. Persistent small left pleural effusion Interim reexpansion of the left lung. There is considerable parenchymal disease throughout the left lung, however. Interim removal of previously demonstrated right chest tube. No pneumothorax. There is some pleural thickening Versus fluid at the right lung base. There is extensive right lung parenchymal interstitial and alveolar disease which appears increased from the previous study. The heart size is normal. Left chest pacemaker again demonstrated. Impression: Interim right chest tube removal. No evidence of pneumothorax Worsening bilateral parenchymal infiltrates versus edema Right lateral basilar pleural thickening versus fluid Borderline prominent cardiac silhouette. There is interval improvement in previously noted edema/failure and bilateral multifocal infiltrates. Small bilateral pleural effusions. Pacemaker device. Remainder little changed. IMPRESSION: Control, interval improvement in previously noted edema/failure and bilateral multifocal infiltrates. Pt presented with Incontinence Associated dermatitis perineum and buttocks.non- blanching erythema with moisture intertrigo noted to cleft of buttocks.Perianal area,R and L buttocks, and bilat ischium are erythematous and denuded. Staff reported pt is incontinent and had diarrhea previous 2 days. Pt also observed to had moisture Intertrigo abdominal folds, R and L groin area. Non-Blanching erythema without induration or fluctuance R and L Heels. Pt did not verbalize,or exhibit any distress to indicate Pain when each heel individually palpated. Tx.Plan: Apply Moisture Barrier Paste to abdominal folds, bilat groin areas with each incontinence care. Apply Moisture Barrier Paste to Buttocks. Cover Sacral area with Optifoam drsg Change every 3 days and prn. Apply Cavilon Skin Barrier to each heel. Cover each heel with Optifoam drsg. Change every 7 days and prn. Reposition at least every 2 hours or as tolerated. Off-load heels with Pillow. Errol Estrada Jul 20, 2019 11:45
[2019-07-20 12:00] VITALS: BP 120/52
[2019-07-20] MEDS ORDERED: Ketotifen Fumarate 0.035% 5ml BOTH EYES PRN (12:30)
--- NOTE | 2019-07-20 12:34 | Pulmonology Progress Note ---
Subjective ROS Limited/Unobtainable: No Interval Events: Constitutional: Reports: no symptoms HEENT: Repors: no symptoms Allergies: Coded Allergies: No Known Allergies (Unverified , 04/24/18) Objective Last 24 Hour Vital Signs Date Time Temp Pulse Resp B/P (MAP) Pulse Ox O2 Delivery O2 Flow Rate FiO2 07/20/19 09:54 64 98/50 07/20/19 09:53 65 07/20/19 09:00 Nasal Cannula 2.0 07/20/19 08:00 97.3 65 20 98/50 (66) 96 07/20/19 04:00 99.3 64 17 98/50 (66) 98 07/20/19 00:00 98.8 66 18 109/56 (73) 100 07/19/19 21:00 Nasal Cannula 2.0 07/19/19 20:54 66 97/52 07/19/19 20:10 96 Nasal Cannula 2.0 28 07/19/19 20:00 98.6 66 19 97/52 (67) 97 07/19/19 16:00 98.1 63 17 101/68 (79) 94 Intake and Output 07/19/19 07/20/19 19:00 07:00 Intake Total 250 ml Balance 250 ml Intake Oral 250 ml # Voids 2 4 # Bowel Movements 2 General Appearance: cachetic HEENT: normocephalic, atraumatic Respiratory: chest wall non-tender, lungs clear Breasts: no masses Cardiovascular: normal peripheral pulses Abdomen: normal bowel sounds, no organomegaly Genitourinary: normal external genitalia Extremities: no cyanosis Skin: no rash Laboratory Tests 07/20/19 06:00: White Blood Count 4.1L, Red Blood Count 3.05L, Hemoglobin 9.3L, Hematocrit 27.1L , Mean Corpuscular Volume 89, Mean Corpuscular Hemoglobin 30.4, Mean Corpuscular Hemoglobin Concent 34.2, Red Cell Distribution Width 15.5H, Platelet Count 158, Mean Platelet Volume 11.2H, Neutrophils (%) (Auto) 78.6H, Lymphocytes (%) (Auto) 15.3L, Monocytes (%) (Auto) 4.0, Eosinophils (%) (Auto) 0.2, Basophils (%) (Auto) 1.8, Sodium Level 141, Potassium Level 4.2, Chloride Level 104, Carbon Dioxide Level 33H, Anion Gap 4L, Blood Urea Nitrogen 17, Creatinine 0.8, Estimat Glomerular Filtration Rate > 60, Glucose Level 83, Calcium Level 8.1L Current Medications Medications (Trade) Dose Ordered Sig/Escobar Route PRN Reason Start Time Stop Time Status Last Admin Dose Admin Acetaminophen (Tylenol) 650 mg Q4H PRN ORAL T>100.5 07/17/19 17:13 08/16/19 17:12 Amiodarone HCl (Cordarone) 200 mg QHS ORAL 07/17/19 21:00 09/30/19 20:59 07/19/19 21:00 Dextrose (Dextrose 50%) 25 ml Q30M PRN IV Hypoglycemia 07/17/19 17:30 09/20/19 18:59 Dextrose (Dextrose 50%) 50 ml Q30M PRN IV Hypoglycemia 07/17/19 17:30 09/20/19 18:59 Digoxin (Lanoxin) 0.125 mg DAILY ORAL 07/18/19 09:00 10/03/19 08:59 07/20/19 09:53 Furosemide (Lasix) 20 mg DAILY ORAL 07/20/19 10:00 08/19/19 09:59 07/20/19 09:45 Heparin Sodium (Porcine) (Heparin 5000 units/ml) 5,000 units EVERY 12 HOURS SUBQ 07/17/19 21:00 08/19/19 20:59 07/20/19 09:46 Hydroxyzine HCl (Atarax) 25 mg Q8H PRN ORAL Itching 07/17/19 17:13 08/16/19 17:12 Metoprolol Tartrate (Lopressor) 50 mg EVERY 12 HOURS ORAL 07/17/19 21:00 09/30/19 20:59 07/20/19 09:54 Assessment/Plan Problems: (1) Pulmonary edema (2) RLL pneumonia (3) Collapse of left lung Assessment & Plan: resolved (4) Pleural effusion (5) Chronic anticoagulation (6) Ribs, multiple fractures (7) Atrial fibrillation (8) Pacemaker (9) COPD (chronic obstructive pulmonary disease) (10) KELVIN (obstructive sleep apnea) Assessment/Plan CXR from today: Interim considerable improvement of previously demonstrated bilateral infiltrates, since prior study of 07/15/2019. There is persistent disease at both lung bases and the right suprahilar region, however. transfuse one more prbc no new complains incentive spirometry chest PT only to left site dc planning in process pt wants to go home now, NO acute therapy. Kelly Mejia MD Jul 20, 2019 12:34
[2019-07-20] MEDS ORDERED: METOPROLOL TART50 MG ORAL (12:44)
[2019-07-20] MEDS ORDERED: FUROSEMIDE20 M1 ORAL (12:44)
--- NOTE | 2019-07-20 12:53 | NUR ---
CHARGE NURSE NOTE: Pt will be discharged home today. Spoke with pt's son Kishan Moreno; family member will be able to pick her up around 5 pm.
--- NOTE | 2019-07-20 13:14 | Internal Med Progress Note ---
Subjective Date of Service: Jul 20, 2019 Physician Name Roshan Edwards Attending Physician Antonio Adrian MD Current Medications Medications (Trade) Dose Ordered Sig/Escobar Route PRN Reason Start Time Stop Time Status Last Admin Dose Admin Acetaminophen (Tylenol) 650 mg Q4H PRN ORAL T>100.5 07/17/19 17:13 08/16/19 17:12 Amiodarone HCl (Cordarone) 200 mg QHS ORAL 07/17/19 21:00 09/30/19 20:59 07/19/19 21:00 Dextrose (Dextrose 50%) 25 ml Q30M PRN IV Hypoglycemia 07/17/19 17:30 09/20/19 18:59 Dextrose (Dextrose 50%) 50 ml Q30M PRN IV Hypoglycemia 07/17/19 17:30 09/20/19 18:59 Digoxin (Lanoxin) 0.125 mg DAILY ORAL 07/18/19 09:00 10/03/19 08:59 07/20/19 09:53 Furosemide (Lasix) 20 mg DAILY ORAL 07/20/19 10:00 08/19/19 09:59 07/20/19 09:45 Heparin Sodium (Porcine) (Heparin 5000 units/ml) 5,000 units EVERY 12 HOURS SUBQ 07/17/19 21:00 08/19/19 20:59 07/20/19 09:46 Hydroxyzine HCl (Atarax) 25 mg Q8H PRN ORAL Itching 07/17/19 17:13 08/16/19 17:12 Ketotifen Fumarate (Zatidor) 1 drop Q8H PRN BOTH EYES Itching 07/20/19 12:30 10/18/19 12:29 Metoprolol Tartrate (Lopressor) 50 mg EVERY 12 HOURS ORAL 07/17/19 21:00 09/30/19 20:59 07/20/19 09:54 Allergies: Coded Allergies: No Known Allergies (Unverified , 04/24/18) ROS Limited/Unobtainable: No Constitutional: Reports: no symptoms HEENT: Reports: no symptoms Cardiovascular: Reports: no symptoms Respiratory: Reports: no symptoms Gastrointestinal/Abdominal: Reports: no symptoms Genitourinary: Reports: no symptoms Neurologic/Psychiatric: Reports: no symptoms Subjective 79 YO F admitted with atypical chest pain. Now severe anemia and acute congestive heart failure. Cover for Int Med-Dr Adrian. S/P video assisted thoracoscopic exploratory surgery 07/02/19. Tele Objective Last Vital Signs Date Time Temp Pulse Resp B/P (MAP) Pulse Ox O2 Delivery O2 Flow Rate FiO2 07/20/19 12:00 97.3 63 20 120/52 (74) 99 07/20/19 09:00 Nasal Cannula 2.0 07/19/19 20:10 28 Laboratory Tests Test 07/20/19 06:00 White Blood Count 4.1 K/UL (4.8-10.8) L Red Blood Count 3.05 M/UL (4.20-5.40) L Hemoglobin 9.3 G/DL (12.0-16.0) L Hematocrit 27.1 % (37.0-47.0) L Mean Corpuscular Volume 89 FL (80-99) Mean Corpuscular Hemoglobin 30.4 PG (27.0-31.0) Mean Corpuscular Hemoglobin Concent 34.2 G/DL (32.0-36.0) Red Cell Distribution Width 15.5 % (11.6-14.8) H Platelet Count 158 K/UL (150-450) Mean Platelet Volume 11.2 FL (6.5-10.1) H Neutrophils (%) (Auto) 78.6 % (45.0-75.0) H Lymphocytes (%) (Auto) 15.3 % (20.0-45.0) L Monocytes (%) (Auto) 4.0 % (1.0-10.0) Eosinophils (%) (Auto) 0.2 % (0.0-3.0) Basophils (%) (Auto) 1.8 % (0.0-2.0) Sodium Level 141 MMOL/L (136-145) Potassium Level 4.2 MMOL/L (3.5-5.1) Chloride Level 104 MMOL/L (98-107) Carbon Dioxide Level 33 MMOL/L (21-32) H Anion Gap 4 mmol/L (5-15) L Blood Urea Nitrogen 17 mg/dL (7-18) Creatinine 0.8 MG/DL (0.55-1.30) Estimat Glomerular Filtration Rate > 60 mL/min (>60) Glucose Level 83 MG/DL (74-106) Calcium Level 8.1 MG/DL (8.5-10.1) L Intake and Output 07/19/19 07/20/19 19:00 07:00 Intake Total 250 ml Balance 250 ml Intake Oral 250 ml # Voids 2 4 # Bowel Movements 2 Objective PHYSICAL EXAMINATION: GENERAL: The patient is well-developed and well-nourished female, in no apparent distress. HEENT: Eyes, pupils are equal and responsive to light and accommodation. Extraocular movements are intact. NECK: Supple without lymphadenopathy. CHEST: nasal canula; Lungs with coarse upper airway sounds without wheezes or rales. CARDIOVASCULAR: Regular rate. S1 and S2 normal without murmurs, rubs, or gallops. ABDOMEN: Soft, nontender, and nondistended. Positive bowel sounds. No evidence of hepatosplenomegaly. Currently, no rebound or guarding noted. EXTREMITIES: Negative for clubbing, cyanosis, or edema. RECTAL/GENITAL: Not performed. NEUROLOGIC: Cranial nerves II through XII are grossly intact without focal deficits. Assessment/Plan Assessment/Plan ASSESSMENT: This is an 79-year-old female. 1. Chest pain. 2. Fall injury. 3. Severe anemia. 4. Atrial fibrillation. 5. Polycythemia vera. 6. Hypertension. 7. Obstructive sleep apnea. 8. Coronary artery disease. 9. Hypercholesterolemia. 10. Congestive heart failure; [id number] 11. Right pleural hemothorax 12. Severe anemia 13. left pneumonia 14. Persistent hypokalemia-resolved 15. worsening pleural edema TREATMENT: 1. Chest pain. This may be secondary to fall injury. Initial troponin level was negative. Repeat troponin levels are pending. A Cardiology consultation has been obtained with Dr. Mainor Araujo. 2. Atrial fibrillation. As above, a Cardiology consultation has been obtained with Dr. Mainor Araujo. 3. Polycythemia vera. The patient is currently anemic. 4. Hypertension. Continue metoprolol as above. 5. Obstructive sleep apnea. 6. Coronary artery disease, status post myocardial infarction. As above, a Cardiology consultation has been obtained with Dr. Mainor Araujo. 7. Hypercholesteremia. 8. Congestive heart failure. 9. Pacemaker in situ. Pacemaker check is pending. 10. right thoracentesis pending 11. Discuss with patient regarding discharge planning, wants to go home, refused SNF. 12. CODE STATUS is full code. 13. Broad spectrum antibiotics with Rocephin IV. 14. Monitor cultures and laboratory. 15. DVT prophylaxis: SCD. 16. OOB to chair, PT Mobility 17. Dc Telemetry 18. S/P video assisted Thoracoscopic exploratory surgery 07/02/19; Thoracic surg=Dr. Malik 19. Right chest tube discontinued 07/07/19 20. S/P Transfusion 6 units PRBC 21. ABX=S/P zosyn per ID=Dr Arrieta 22. lasix for diuresis 22. Discharge planning: Home with home health today Roshan Edwards MD Jul 20, 2019 13:14
--- NOTE | 2019-07-20 14:10 | Infectious Diseases Prog Note ---
Assessment/Plan Assessment/Plan Assessment: Low grade fever; intermittent- SP No leukocytosis> mild leukopenia -07/03 Bcx Neg -06/21 u/a wbc 15-20, nit neg, leuk+3; UCx <10 mixed urogenital contaminants PNA- COVID19 neg x2, sp rx -07/29 CXR: Interim considerable improvement of previously demonstrated bilateral infiltrates, since prior study of 07/15/2019. There is persistent disease at both lung bases and the right suprahilar region, however. Persistent small left pleural effusion -07/14 CXR: Increased right upper lobe infiltrates -07/12 CXR: Increasing bilateral basilar infiltrates/edema and pleural effusions, over 2 days -07/08 SARS-COV2 PCR neg -07/07 CXR: Interim right chest tube removal. No evidence of pneumothorax. Worsening bilateral parenchymal infiltrates versus edema. Right lateral basilar pleural thickening versus fluid -07/05 CXR: . Slightly improved moderate left pleural effusion. Slightly improved left perihilar interstitial thickening and lower lung opacity. Minimally improved right interstitial thickening and perihilar and lower lobe opacities. Improving right chest wall emphysema. Stable right chest tube. -06/26 CXR: Pulmonary vascular congestion, similar to mildly increased from the prior exam. No significant change in the small right pleural effusion or subtle infiltrate in the right lung base. -06/25 SARS-COV2 PCR neg -06/23 CXR: Right basilar infiltrate with trace right effusion. s/p Mechanical fall Rib, abdominal pain- 2ry to R rib fractures and large R pleural effusion/ hemothorax ?Post-op pos-obstructive PNA -07/03 CXR: . Interval development of diffuse opacification of the left lung. This raises possibility of having developed a left mainstem bronchus obstruction with postobstructive atelectasis. Alternatively a very large left effusion or severe left-sided pneumonia could have similar appearance, although unlikely to have developed since the prior exam. -07/01 SP Flexible bronchoscopy. Right video-assisted thoracoscopic surgery. Intrapleural pneumolysis.Evacuation of right intrathoracic blood. Intercostal nerve block. --OR Findings: Minimal amount of mucopurulent secretion was lavaged and suctioned clear. Righ hemithorax: There was noted to be some adhesions There was noted to be no protrusion of any fractured ribs into the intrathoracic cavity as the entire parietal pleura appears to be intact. -- cx neg (aerobic and anaerobic) --AFB smear neg; cx p -06/25 Chest US: Small right pleural effusion, decreased compared to the prior exam. No significant pocket for thoracentesis. -06/22 Chest US: Positive for right pleural effusion -06/[address]: 1. 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 No acute intracranial pathology is detected. CT C/abd/p:No evidence of acute injury to the abdominal or pelvic viscera. Somewhat limited study due to motion artifact. Cholelithiasis. Acute posterior medial lower right rib fractures. Moderate to large right pleural effusion, possibly containing an element of the hemothorax. Cardiomegaly.ASCVD. No pneumothoraces. Acute on chronic anemia -08/06/18 sp EGD: Normal upper endoscopy, status post biopsy. -path: mild chronic gastritis, no H. pylori identified pAfib hx of rib fractures Sinus node dysfunction s/p PPM (batter exchange July 2018) s/p KELI GERD polycythemia vera HLD MDD anemia NSTEMI s/p normal cardiac catheterization 2019 HTN KELVIN dCHF Plan: monitor off abx -07/17 SP Cefdinir #2(Abx #22) -07/15 SP Zosyn #13 -07/03 SP Ceftriaxone #9 -f/u cx -Monitor CBC/CMP, temperatures -aspiration precautions -Pulm, CT sx, cards f/u -COVID 19 neg x2 DW RN Thank you for consulting [facility]. Will contiue to follow along with you. Subjective Allergies: Coded Allergies: No Known Allergies (Unverified , 04/24/18) Subjective afebrile on 2l NC mild leukopenia CXR much improved Objective Vital Signs Last 24 Hour Vital Signs Date Time Temp Pulse Resp B/P (MAP) Pulse Ox O2 Delivery O2 Flow Rate FiO2 07/20/19 12:00 97.3 63 20 120/52 (74) 99 07/20/19 09:54 64 98/50 07/20/19 09:53 65 07/20/19 09:00 Nasal Cannula 2.0 07/20/19 08:00 97.3 65 20 98/50 (66) 96 07/20/19 04:00 99.3 64 17 98/50 (66) 98 07/20/19 00:00 98.8 66 18 109/56 (73) 100 07/19/19 21:00 Nasal Cannula 2.0 07/19/19 20:54 66 97/52 07/19/19 20:10 96 Nasal Cannula 2.0 28 07/19/19 20:00 98.6 66 19 97/52 (67) 97 07/19/19 16:00 98.1 63 17 101/68 (79) 94 Height (Feet): 5 Height (Inches): 0.00 Weight (Pounds): 136 Objective General Appearance: no acute distress, other - elderly female in NAD HEENT: normocephalic, atraumatic, anicteric Respiratory: decreased breath sounds Cardiovascular: normal rate Abdomen: normal bowel sounds, soft, non tender Extremities: no edema Neurologic: abnormal gait - unsteady, alert, responsive Musculoskeletal: atrophy Laboratory Tests Test 07/20/19 06:00 White Blood Count 4.1 K/UL (4.8-10.8) L Red Blood Count 3.05 M/UL (4.20-5.40) L Hemoglobin 9.3 G/DL (12.0-16.0) L Hematocrit 27.1 % (37.0-47.0) L Mean Corpuscular Volume 89 FL (80-99) Mean Corpuscular Hemoglobin 30.4 PG (27.0-31.0) Mean Corpuscular Hemoglobin Concent 34.2 G/DL (32.0-36.0) Red Cell Distribution Width 15.5 % (11.6-14.8) H Platelet Count 158 K/UL (150-450) Mean Platelet Volume 11.2 FL (6.5-10.1) H Neutrophils (%) (Auto) 78.6 % (45.0-75.0) H Lymphocytes (%) (Auto) 15.3 % (20.0-45.0) L Monocytes (%) (Auto) 4.0 % (1.0-10.0) Eosinophils (%) (Auto) 0.2 % (0.0-3.0) Basophils (%) (Auto) 1.8 % (0.0-2.0) Sodium Level 141 MMOL/L (136-145) Potassium Level 4.2 MMOL/L (3.5-5.1) Chloride Level 104 MMOL/L (98-107) Carbon Dioxide Level 33 MMOL/L (21-32) H Anion Gap 4 mmol/L (5-15) L Blood Urea Nitrogen 17 mg/dL (7-18) Creatinine 0.8 MG/DL (0.55-1.30) Estimat Glomerular Filtration Rate > 60 mL/min (>60) Glucose Level 83 MG/DL (74-106) Calcium Level 8.1 MG/DL (8.5-10.1) L Current Medications Medications (Trade) Dose Ordered Sig/Escobar Route PRN Reason Start Time Stop Time Status Last Admin Dose Admin Acetaminophen (Tylenol) 650 mg Q4H PRN ORAL T>100.5 07/17/19 17:13 08/16/19 17:12 Amiodarone HCl (Cordarone) 200 mg QHS ORAL 07/17/19 21:00 09/30/19 20:59 07/19/19 21:00 Dextrose (Dextrose 50%) 25 ml Q30M PRN IV Hypoglycemia 07/17/19 17:30 09/20/19 18:59 Dextrose (Dextrose 50%) 50 ml Q30M PRN IV Hypoglycemia 07/17/19 17:30 09/20/19 18:59 Digoxin (Lanoxin) 0.125 mg DAILY ORAL 07/18/19 09:00 10/03/19 08:59 07/20/19 09:53 Furosemide (Lasix) 20 mg DAILY ORAL 07/20/19 10:00 08/19/19 09:59 07/20/19 09:45 Heparin Sodium (Porcine) (Heparin 5000 units/ml) 5,000 units EVERY 12 HOURS SUBQ 07/17/19 21:00 08/19/19 20:59 07/20/19 09:46 Hydroxyzine HCl (Atarax) 25 mg Q8H PRN ORAL Itching 07/17/19 17:13 08/16/19 17:12 Ketotifen Fumarate (Zatidor) 1 drop Q8H PRN BOTH EYES Itching 07/20/19 12:30 10/18/19 12:29 Metoprolol Tartrate (Lopressor) 50 mg EVERY 12 HOURS ORAL 07/17/19 21:00 09/30/19 20:59 07/20/19 09:54 Alejandrina Arrieta M.D. Jul 20, 2019 14:10
--- NOTE | 2019-07-20 14:45 | NUR ---
*-*DISCHARGE PLANNING *-* PATIENT STATED, SHE NEED TO FIND OUT WHAT TIME HER SON OR NEPHEW WILL BE ABLE TO PICK HER UP, BECAUSE THEY HAVE TO GO TO WORK AT A CERTAIN TIME. Addendum: 07/20/19 at 1449 by JACOBO BISHOP CM DISREGARD ABOVE INFORMATION, WRONG DOCUMENTATION.
[2019-07-20 16:00] VITALS: BP 103/59
--- NOTE | 2019-07-20 17:25 | NUR ---
NURSE NOTES: Patient was discharged to home at 5:15 pm in stable condition accompanied by family member. Medications and belongings sent with the patient, no missing belongings noted, $155 sent with patient counted upon DC with 2 witnesses, IV line and ID band removed, patient's vitals are within baseline, no c/o of any pain or discomfort upon discharge.
--- NOTE | 2019-07-21 10:49 | Discharge Summary ---
Discharge Summary Discharge Summary _ 90 DATE OF ADMISSION: 06/22/2019 DATE OF DISCHARGE: 07/20/2019 DISCHARGED BY: Dr. Adrian REASON FOR ADMISSION: 79 years old female with past medical history of hypertension, CVA/TIA, atrial fibrillation, status post permanent pacemaker placement, secondary to sick sinus syndrome, presented for evaluation . Patient fell at home and reported sharp, nonradiating, 10 out of 10 pain in her right-sided chest and abdomen. No loss of consciousness, no dizziness. no blackout. CT of the head revealed no acute intracranial pathology. Age-related atrophy and small vessel disease noted. CT scan of the abdomen and pelvis revealed no evidence of acute injury to the abdominal or pelvic viscera. Cholelithiasis. CT scan of the chest showed acute posterior medial lower right rib fractures, involving 9th, 10th, 11th and 12th ribs. Moderate to large right pleural effusion, possibly containing the element of hemothorax. Cardiomegaly. ASCVD. No pneumothorax. Patient subsequently was admitted for further management CONSULTANTS: chyron operator Dr. Araujo cardiac inspector quality assurance Dr. Lozoya cardiothoracic surgeon Dr. Malik general surgery Dr. Estrada pulmonary/critical care Dr. Mejia ID specialist Dr. Arrieta [facility] COURSE: Patient admitted to monitored floor. Chest x-ray was done and revealed right basilar infiltrate with trace of right effusion. Antibiotic for probable pneumonia provided as per ID recommendation. Ultrasound of the chest demonstrated right pleural effusion moderate to large. No pleural effusion on the left. Repeated ultrasound of the chest on the 06/25 revealed small right pleural effusion , no significant pocket for thoracentesis. Supplemental oxygen provided and titrated to keep pulse oximetry above 90% , pulmonary toilet provided. SARS COV 2 x 2 was not detected. Patient with evidence of intermittent atrial fibrillation, Due to finding of hemothorax and severe anemia, patient was off anticoagulation. Overlock Collar Setter and cardiac inspector quality assurance closely followed. Patient was cleared for surgery . Patient seen and evaluated by cardiothoracic surgeon , who recommended VATS for washout. Patient undergone on flexible bronchoscopy with right VATS, intrapleural pneumolysis, evacuation of right intrathoracic blood and intercostal nerve block. Patient left intubated after surgery and extubated on . Supplemental oxygen and pulmonary toilet provided. Chest tube output , placed during surgery was closely monitored. Chest tube was discontinued 07/06. Intraoperative culture was negative. AFB smear from intraoperative culture was negative. Blood cultures were negative. Patient was followed-up with chest x-ray postoperatively. Patient developed diffuse opacification of the left lung. Patient completed antibiotics for postoperative postobstructive pneumonia left lung. po No leukocytosis. Intermittent low-grade fevers resolved. Patient was in sinus rhythm with A pacing. Heart rate was controlled with beta-kelli, digoxin and amiodarone. Patient was on diuresis with close monitoring of volumes and cardiorenal parameters. Pro BNP trended down. Last CXR showed considerable improvement of previously demonstrated bilateral infiltrates/pulmonary edema. Hemoglobin and hematocrit were closely monitored with goal to keep hemoglobin above 7. During the stay in the hospital patient undergone transfusion of total of 6 units of packed red blood cells . Patient was off anticoagulation, as mentioned above. Venous Duplex BLE was negative. SCD provided for mechanical prophylaxis of DVT. Patient undergone EGD in July 2018 which was normal . Biopsy revealed mild chronic gastritis, no H. pylori was identified. Prior to discharge hemoglobin 9.3 hematocrit 27.1. Pain management was addressed. Supportive care provided. Fall precaution maintained. Patient was working with physical therapist. Diet provided as per speech therapist recommendation with strict aspiration precaution. Supportive care provided . Prior to discharge pulse oximetry stable on room air. Patient clinically stabilized and was ready for discharge home. FINAL DIAGNOSES: Status post mechanical fall with acute multiple right-sided rib fractures Right pleural effusion, moderate to large with associated hemothorax Right hemothorax Status post flexible bronchoscopy, right video-assisted thoracoscopic surgery, intrapleural pneumolysis, evacuation of right intrathoracic blood, intercostal nerve block on 07/01 Acute respiratory failure (remained intubated after surgery ), status post extubation / Right-sided chest tube , status post removal Atelectasis with collapsed left lung Postoperative postobstructive pneumonia left lung COPD Anemia , status post multiple units of packed red blood cells s/p EGD gastritis Suspected COVID-19 infection - ruled out Obstructive sleep apnea Paroxysmal atrial fibrillation with rapid ventricular response Congestive heart failure with diastolic dysfunction Pulmonary edema Sick sinus syndrome , status post [employer] pacemaker (implanted in 2010 , with generator change in 2018) History of polycythemia vera Severe pulmonary hypertension HTN DISCHARGE MEDICATIONS: See Medication Reconciliation list. DISCHARGE INSTRUCTIONS: Patient was discharged home. Follow up with primary care provider in one week. Cait Melchor NP Jul 21, 2019 10:49
== END 2019-07-20 17:35 | disposition home or self-care (01) | DRG 166 ==
LOC: EMR 15:12 → EDBD 15:12 → 2E 16:30 → EDBEDREQSVC 18:28 → EDBEDREQ 18:49 → 3E 06-30 02:29 → ICU 07-02 14:54 → 2W 07-05 23:01 → 2E 07-08 17:48 → 4E 07-17 16:46
PROC: 0B978ZZ Drainage of Left Main Bronchus, Via Natural or Artificial Opening Endoscopic (ICD-10-PCS; principal; 2019-07-02 12:00)
PROC: 0W9930Z Drainage of Right Pleural Cavity with Drainage Device, Percutaneous Approach (ICD-10-PCS; principal; 2019-07-02 12:00)
PROC: 0BNN4ZZ Release Right Pleura, Percutaneous Endoscopic Approach (ICD-10-PCS; principal; 2019-07-02 12:00)
PROC: 0WP9X0Z Removal of Drainage Device from Right Pleural Cavity, External Approach (ICD-10-PCS; 2019-07-07)
DX: S27.1XXA Traumatic hemothorax, initial encounter (principal); I50.33 Acute on chronic diastolic (congestive) heart failure; S22.41XA Multiple fractures of ribs, right side, initial encounter for closed fracture; J90 Pleural effusion, not elsewhere classified; N39.0 Urinary tract infection, site not specified; J98.11 Atelectasis; J95.89 Other postprocedural complications and disorders of respiratory system, not elsewhere classified; J44.0 Chronic obstructive pulmonary disease with (acute) lower respiratory infection; Z95.0 Presence of cardiac pacemaker; I48.0 Paroxysmal atrial fibrillation; I49.5 Sick sinus syndrome; D45 Polycythemia vera; I27.20 Pulmonary hypertension, unspecified; I11.0 Hypertensive heart disease with heart failure; E87.6 Hypokalemia; W19.XXXA Unspecified fall, initial encounter; Z91.81 History of falling; Y92.009 Unspecified place in unspecified non-institutional (private) residence as the place of occurrence of the external cause; D64.9 Anemia, unspecified; G47.33 Obstructive sleep apnea (adult) (pediatric); I25.10 Atherosclerotic heart disease of native coronary artery without angina pectoris; E78.00 Pure hypercholesterolemia, unspecified; Z86.73 Personal history of transient ischemic attack (TIA), and cerebral infarction without residual deficits; I25.2 Old myocardial infarction; R10.9 Unspecified abdominal pain; R19.7 Diarrhea, unspecified; I95.9 Hypotension, unspecified; Z20.828 Contact with and (suspected) exposure to other viral communicable diseases
CPT/HCPCS: 36415; 36430; 36600; 70450; 71045; 71250; 74018; 74176; 76604; 80048; 80053; 80061; 80162; 81003; 82330; 82550; 82803; 82962; 83615; 83735; 83880; 84100; 84443; 84484; 85007; 85025; 85610; 85730; 86850; 86900; 86901; 86920; 87040; 87070; 87075; 87086; 87116; 87205; 87635; 92610; 93005; 93306; 94002; 94003; 94150; 94640; 96360; 99285; J7030; J7620; J8499

== ENCOUNTER 2019-09-21 14:09 | Inpatient (IN) | payer MEDICARE, OTHER ==
[~2019-09-21] VITALS: Ht 154.9 cm; Wt 51.9 kg
[~2019-09-21 14:09] MED LIST changes: +LORATADINE10 M1 PO; +PACERONE200 MG ORAL
--- NOTE | 2019-09-21 14:55 | NUR ---
ED Nurse Note: Patient taken to CT scan. 1430- Patient brought in by son in wheelchair. Son not here with patient. Patient knows her name, birthday, current year. Denies any pain. Patient appears to be weak and pale. Assisted patient from wheelchair to rney. Regular, unlabored breathing noted. Patient unable to state why she came to ER today and kept stating "my body". Placed patient on campus monitor. Bed in lowest positon.
[2019-09-21 15:11] LABS: MEAN CORPUSCULAR VOLUME 100 FL (80-99); PLATELET COUNT 209 K/UL (150-450); RED CELL DISTRIBUTION WIDTH 24.1 % (11.6-14.8); WHITE BLOOD COUNT 6.1 K/UL (4.8-10.8)
[2019-09-21 15:14] LABS: HEMOGLOBIN 4.8 G/DL (12.0-16.0)
[2019-09-21 15:17] LABS: INR 1.3 (0.9-1.1)
[2019-09-21 15:18] LABS: ANION GAP 10 mmol/L (5-15); BLOOD UREA NITROGEN 23 mg/dL (7-18); CALCIUM 8.9 MG/DL (8.5-10.1); CARBON DIOXIDE 23 MMOL/L (21-32); CHLORIDE 106 MMOL/L (98-107); CREATININE 0.9 MG/DL (0.55-1.30); SODIUM 139 MMOL/L (136-145)
--- NOTE | 2019-09-21 15:24 | Diagnostic Imaging Report ---
Indications: Altered mental status and weakness Technique: Spiral acquisitions obtained through the brain. Angled axial and coronal 5 x 5 mm slices were reconstructed. Total dose length product 965 mGycm. CTDI vol(s) 53 mGy. Dose reduction achieved using automated exposure control Comparison: 06/22/2019 Findings: There is age-related enlargement of the ventricles and extra-axial CSF spaces. There is periventricular deep white matter ischemic change again demonstrated. Again demonstrated are bilateral basal ganglia lacunar infarcts. No acute intracranial hemorrhage or edema. No mass effect nor midline shift. The mastoids are clear. The calvarium is intact. Impression: Chronic and age-related changes. Negative for acute intracranial bleed or mass effect Old bilateral basal ganglia lacunar infarcts The CT scanner at [facility] is accredited by the [employer] and the scans are performed using protocols designed to limit radiation exposure to as low as reasonably achievable to attain images of sufficient resolution adequate for diagnostic evaluation.
[2019-09-21 15:32] LABS: ALANINE AMINOTRANSFERASE 10 U/L (12-78); ALBUMIN 3.2 G/DL (3.4-5.0); ALBUMIN/GLOBULIN RATIO 0.8 (1.0-2.7); ALKALINE PHOSPHATASE 69 U/L (46-116); ASPARTATE AMINO TRANSFERASE 13 U/L (15-37); BILIRUBIN,TOTAL 0.7 MG/DL (0.2-1.0); CKMB 0.6 NG/ML (0.0-3.6); CREATINE KINASE 12 U/L (26-308)
--- NOTE | 2019-09-21 15:32 | Diagnostic Imaging Report ---
Indication: Cough Technique: One view of the chest Comparison: 07/20/2019 Findings: Previously demonstrated bilateral basilar opacities and pleural fluid are largely resolved, although there is minimal atelectasis at the medial left lung base. Very mild interstitial prominence may be on the basis of senescent change. No definite infiltrates. The heart size is upper limits normal. There is a left chest pacemaker. There are degenerative changes of the right shoulder Impression: Findings as noted. No definite acute process
[2019-09-21 15:47] VITALS: BP 118/49
--- NOTE | 2019-09-21 16:00 | NUR ---
ED Nurse Note: Blood Bank, [facility] [employer] informed this RN that patient has +antigen and blood is not ready at this time and it will take a while and no further blood sample needed at this time. Dr. Lainez notified. Patient resting in bed. Denies any vomting or BM with blood or dark colored emesis. Reports no pain. Addendum: 09/21/19 at 1635 by MONY call light within reach. Patient c/o itching all over the body. No rash or discoloration noted. Skin appears dry. JANAE notified.
[2019-09-21] MEDS ORDERED: DiphenhydrAMINE 50mg/ml Inj IVP ONE (16:15)
[2019-09-21 16:24] LABS: APPEARANCE,URINE CLEAR; BILIRUBIN, URINE NEGATIVE (NEGATIVE); GLUCOSE, URINE (UA) NEGATIVE (NEGATIVE); KETONES,URINE NEGATIVE (NEGATIVE); LEUKOCYTE ESTERASE ,URINE 1+ (NEGATIVE); NITRITE,URINE NEGATIVE (NEGATIVE); PH,URINE 5 (4.5-8.0); PROTEIN,URINE 2+ (NEGATIVE); UROBILINOGEN,URINE 1 MG/DL (0.0-1.0)
--- NOTE | 2019-09-21 16:35 | Emergency Room Report ---
History of Present Illness General Chief Complaint: Generalized Weakness Source: Patient Present Illness HPI 79-year-old female with past medical history of symptomatic anemia, hypertension , CVA/TIA, A. fib, pacemaker secondary to sick sinus syndrome sent by Dr. Adrian for generalized weakness. The patient's symptoms were gradual onset, severity was moderate, duration since several days. Denies chest pain, shortness of breath, fever, cough, chills, nausea, vomiting, melena, hematochezia, hematemesis. She does not recall her last endoscopy or colonoscopy. History is limited secondary to patient's poor recollection of her previous history. She is a poor historian. Past medical history: Anemia, hypertension, A. fib, CAD, sick sinus syndrome Past surgical history: Pacemaker Smoking: Denies Alcohol use: Denies Drug use: Denies Review of systems: CONST: Generalized weakness No fevers or chills, No night sweats PULMONARY: No productive cough, No shortness of breath CARDIAC: No chest pain, No palpitations GI: No vomiting, No diarrhea , No melena_or_BRBPR : No dysuria, No hematuria, No discharge NEURO: No new_focal_weakness_or_numbness, No confusion, No vision changes 14 point Review of Systems is otherwise negative except per HPI Physical Exam: GENERAL: Awake_alert_ nontoxic, no acute distress Spo2 94 % on RA -normal EYES: Extraocular muscles are intact. Conjunctivae clear. Lids without swelling ENT: External nose and ear normal_in_appearance. Oropharynx clear. Head_ atraumatic, Moist_oral_mucosa NECK: No JVD. No meningismus. No thyromegaly. Supple. Trachea midline RESP: Normal respiratory effort. Symmetric rise. No stridor. Clear_to_ auscultation_No_rales_No_wheezes CARDIAC: Regular rate and regular rhythm on_auscultation No_significant pedal edema. ABDOMEN: Soft. Nondistended. Nontender_No_rebound_or_guarding. MSK: Normal muscle tone, without rigidity. Extremities without asymmetric deformity or swelling. SKIN: Warm and dry. No visible cyanosis or pallor NEUROLOGIC: Alert, oriented x3. Motor_and_sensation_grossly_intact. No truncal ataxia. Gait_normal Psych: Normal mood and affect, normal judgment and insight - COORDINATION OF CARE Case was discussed with: Patient , Patient's Physician Any labs and imaging that were ordered were interpreted as part of the medical decision making: I did review previous medical records from 07/21/2019. Patient received an EGD by GI at that time that showed gastritis. No varices Medical Decision Making/Plan: On examination, patient has stable vital signs, however she has low SPO2 at 93% room air. She is also very pale appearing Given the possibility of a bleeding peptic ulcer, Protonix IV was immediately started. Because of Hgb 4, macrocytic the patient will immediately be transfused 2 units of PRBC in the ED Pt will be admitted for further care and management. The patient does not require any emergent anticoagulation reversal at this time point, although it was considered. INR was 1.3 Patient is protecting their airway, no active vomiting, no need for NG tube or intubation at this time. The patient is currently hemodynamically stable, and stable for transfer to the floor at this time. I spoke with Dr. Adrian, and reviewed the patients presentation, workup, results , and treatment. They will admit the patient for further care and evaluation, and assume care of the patient at this time. Allergies: Coded Allergies: No Known Allergies (Unverified , 04/24/18) COVID-19 Screening Contact w/high risk pt: No Recent Travel to affected area: No Experienced COVID-19 symptoms?: No COVID-19 Testing performed DEHAIRING MACHINE TENDER: No Patient History Last Menstrual Period: na Nursing Documentation-PMH Past Medical History: No History, Except For Hx Cardiac Problems: Yes - CHF Hx Hypertension: Yes Hx Pacemaker: Yes Hx Asthma: No Hx COPD: No Hx Diabetes: No Hx Cancer: No Hx Gastrointestinal Problems: Yes Hx Dialysis: No Hx Neurological Problems: Yes Hx Cerebrovascular Accident: No Hx Transient Ischemic Attacks: Yes Hx Seizures: No Hx Headaches: Yes Hx Numbness: Yes Hx Weakness: Yes - Generalized weakness Physical Exam Vital Signs Date Time Temp Pulse Resp B/P (MAP) Pulse Ox O2 Delivery O2 Flow Rate FiO2 09/21/19 14:14 98.1 76 20 102/52 (69) Room Air 09/21/19 15:47 99 Sp02 EP Interpretation: reviewed, normal Procedures Critical Care Time Critical Care Time Critical Care Statement Organ systems at risk include: [cardiac / circulatory/heme Critical care performed for 50 minutes. Time is exclusive of separately billable procedures. Time includes: direct patient care, continuous monitoring and multiple patient reassessment, coordination of patient care, review of patient's medical records , medical consultation, family consultation regarding treatment decisions and documentation of patient care. Medical Decision Making Diagnostic Impression: Primary Impression: Generalized weakness Additional Impressions: Anemia Paroxysmal A-fib CAD (coronary artery disease) COPD (chronic obstructive pulmonary disease) Hypercholesterolemia KELVIN (obstructive sleep apnea) Polycythemia vera CHF (congestive heart failure) Pacemaker EKG Diagnostic Results REYES Scribe Kevin 12-lead EKG (interpreted by me) Time: 1432 Indication: Rhythm analysis Tracing visualized and Interpreted by me. Rhythm: Normal sinus rhythm Rate: 73 bpm QTc: 475 Morphology: No_significant_ST_elevations_or_depressions, No STEMI Impression: Mildly prolonged QT interval. Nonspecific ST changes. No acute ST elevation MA. T waves lateral leads. Rhythm Strip Diag. Results Rhythm Strip Time: 16:41 EP Interpretation: yes Rate: 82 Rhythm: NSR, no PVC's, no ectopy Other Impression Normal sinus rhythm Chest X-Ray Diagnostic Results Chest X-Ray Diagnostic Results : REYES Brown XRAY Chest 1v Indication: Cough Findings: Previously demonstrated bilateral basilar opacities and pleural fluid are largely resolved, although there is minimal atelectasis at the medial left lung base. Very mild interstitial prominence may be on the basis of senescent change. No definite infiltrates. The heart size is upper limits normal. There is a left chest pacemaker. There are degenerative changes of the right shoulder Impression: Findings as noted. No definite acute process ATX medial left lung base CT/MRI/US Diagnostic Results CT/MRI/US Diagnostic Results : Impression CT Head no Contrast Indications: Altered mental status and weakness Findings: There is age-related enlargement of the ventricles and extra-axial CSF spaces. There is periventricular deep white matter ischemic change again demonstrated. Again demonstrated are bilateral basal ganglia lacunar infarcts. No acute intracranial hemorrhage or edema. No mass effect nor midline shift. The mastoids are clear. The calvarium is intact. Impression: Chronic and age-related changes. Negative for acute intracranial bleed or mass effec Old bilateral basal ganglia lacunar infarcts Reevaluation Time: 16:42 Last Vital Signs Date Time Temp Pulse Resp B/P (MAP) Pulse Ox O2 Delivery O2 Flow Rate FiO2 8/20 15:47 98.2 72 14 118/49 99 Room Air Status: improved Disposition: ADMITTED INPATIENT Admit Decision Time: 15:30 Condition: Stable Referrals: Antonio Adrian MD (PCP) Tete Lainez D.O. Sep 21, 2019 16:35
[2019-09-21 16:45] LABS: COLOR,URINE YELLOW
[2019-09-21] MEDS ORDERED: Pantoprazole Inj IVP ONE (16:45)
[2019-09-21] MEDS ORDERED: cefTRIAXone 1 GM in NS 55 ML IVPB ONE ×2 (16:45→17:05)
[2019-09-21 17:00] VITALS: BP_SYST 106; BP_SYST 109; BP_DIAS 57
--- NOTE | 2019-09-21 17:30 | NUR ---
ED Nurse Note: Informed consent for blood transfusion obtained by Dr. Lainez and all questions were answered. Patient also given a Patient's Guide to Blood Transfusion in [facility].
--- NOTE | 2019-09-21 17:50 | NUR ---
ED Nurse Note: blood transfusion initiated, VS is 109/58, 98.8, 77
--- NOTE | 2019-09-21 18:05 | NUR ---
ED Nurse Note: 15 min after blood transfusion, no adverse reaction noted at this time. VS is bp 108/48, t98.6, p75. no SOB or respiratory distress is present at this time,. Will continue to monitor pt.
--- NOTE | 2019-09-21 18:11 | NUR ---
ED Nurse Note: attempted to give report, rn to call back for report
[2019-09-21 18:31] VITALS: BP_SYST 107; BP_SYST 108; BP_DIAS 48; BP_DIAS 77
--- NOTE | 2019-09-21 18:33 | NUR ---
ED Nurse Note: RN attempted to give report and lithopone charger at tele unit will call us back.
[2019-09-21 18:35] VITALS: BP_SYST 106; BP_SYST 108; BP_DIAS 55; BP_DIAS 67
--- NOTE | 2019-09-21 18:45 | NUR ---
ED Nurse Note: Report given to IRA HERNANDEZ.
--- NOTE | 2019-09-21 18:45 | NUR ---
ED Nurse Note: Patient is receiving blood transfusion via right AC. No adverse reaction noted. Addendum: 09/21/19 at 1904 by MONY ED Nurse Note: Confirmed with Dr. Lainez and order to run blood over 3hrs.
--- NOTE | 2019-09-21 18:50 | NUR ---
ED Nurse Note: RN decreased the rate to 90ml/hr as ordered. RN checked with blood bank, [facility] and 1 unit of PRBC has approximately 250ml.
[2019-09-21 19:05] VITALS: BP 106/45
[2019-09-21] MEDS ORDERED: Zolpidem 5mg tab ORAL PRN (19:15)
--- NOTE | 2019-09-21 19:19 | NUR ---
NURSE NOTES: Report received from Janell ROTH, awaiting patient's arrival to unit. Report in turn given to Ashlee ROTH.
--- NOTE | 2019-09-21 19:30 | History and Physical Report ---
DATE OF ADMISSION: 09/21/2019 CHIEF COMPLAINT: The patient is an 79-year-old female who presents with a chief complaint of generalized weakness. HISTORY OF PRESENT ILLNESS: The patient was admitted to [facility] in June 2019. Please see history and physical and discharge summary dictated at that time. The patient has a history of polycythemia vera. The patient presented to [facility] complaining of generalized weakness. Hemoglobin was 4.8. The patient is admitted for generalized weakness and severe anemia. REVIEW OF SYSTEMS: CONSTITUTIONAL: The patient denies weight loss or weight gain. The patient denies fevers or chills. HEENT: The patient denies ear or throat pain. The patient denies headache. CARDIOVASCULAR: The patient denies palpitations or chest pain. CHEST: The patient denies wheeze or shortness of breath. ABDOMINAL: The patient denies nausea, vomiting, diarrhea, or constipation. GENITOURINARY: The patient denies dysuria or increased frequency of urination. NEUROMUSCULAR: The patient denies seizures or generalized weakness. PAST MEDICAL HISTORY: Significant for: 1. Chronic atrial fibrillation. 2. Polycythemia vera. 3. History of cerebrovascular accident/transient ischemic attack. 4. Obstructive sleep apnea. 5. Coronary artery disease. 6. Hypercholesterolemia. 7. Congestive heart failure. 8. Right hemothorax in June 2019. 9. History of sick sinus syndrome, status post pacemaker implantation. PAST SURGICAL HISTORY: Significant for: 1. Pacemaker implantation. 2. Total abdominal hysterectomy. 3. Video-assisted thoracoscopic exploratory surgery on July 02, 2019. CURRENT MEDICATIONS: 1. Amiodarone 200 mg 1 tablet p.o. daily. 2. Lasix 20 mg p.o. daily. 3. Gabapentin 300 mg p.o. 3 times daily. 4. Hydroxyurea 500 mg p.o. daily. 5. Metoprolol 50 mg p.o. twice daily. ALLERGIES: No known drug allergies. SOCIAL HISTORY: The patient is single and lives with her niece and her sister. The patient denies tobacco or alcohol use. PHYSICAL EXAMINATION: VITAL SIGNS: Temperature 98.1, respirations 20, pulse 76, blood pressure 120/52. GENERAL: The patient is a well-developed, well-nourished female, in no apparent distress. HEENT: Eyes, pupils equal and responsive to light and accommodation. Extraocular movements are intact. NECK: Supple without lymphadenopathy. CHEST: Lungs are clear to auscultation bilaterally without wheezes or rales. CARDIOVASCULAR: Regular rate. S1-S2 are normal without murmurs, rubs, or gallops. ABDOMEN: Soft, nontender, nondistended with positive bowel sounds. No evidence of hepatosplenomegaly. Currently no rebound or guarding noted. EXTREMITIES: Negative for clubbing, cyanosis, or edema. RECTAL/GENITAL: Not performed. NEUROLOGICAL: Cranial nerves II through XII are grossly intact without focal deficits. Motor strength is 5/5 bilaterally. Deep tendon reflexes are 2+, plantar. LABORATORY STUDIES: WBC 6.1, hemoglobin 4.8, hematocrit 15.0, platelets 209,000. Sodium 139, potassium 4.0, chloride 106, CO2 23, BUN 23, creatinine 0.9, glucose 103. BNP elevated at 1954. Troponin normal at 0.0. Chest x-ray was reported as no acute disease. A CT of the brain showed chronic age-related changes, negative for acute intracranial bleed or mass effect. ASSESSMENT: This is an 79-year-old female. 1. Generalized weakness. 2. Severe anemia. 3. Chronic atrial fibrillation. 4. Polycythemia vera. 5. History of cerebrovascular accident/transient ischemic attack. 6. Obstructive sleep apnea. 7. Coronary artery disease. 8. Hypercholesterolemia. 9. Congestive heart failure. 10. History of sick sinus syndrome. 11. History of right hemothorax. TREATMENT: 1. Generalized weakness. This is probably secondary to severe anemia as below. 2. Severe anemia. Reason for anemia is unknown. Differential includes gastrointestinal hemorrhage versus worsening polycythemia vera and bone marrow suppression. The patient has been typed and crossed for 2 units of packed RBCs. Transfuse when available. 3. Polycythemia vera, as above. The patient has been typed and crossed for 2 units of packed RBCs. 4. Chronic atrial fibrillation/coronary artery disease. A cardiology consultation has been obtained with Dr. Mainor Araujo. 5. Sick sinus syndrome. The patient is status post pacemaker implantation. 6. Hypercholesterolemia. 7. History of congestive heart failure. 8. History of right pneumothorax, status post VATS procedure. Roshan Edwards M.D. DR: DOLORES JOB#: [id number] CC: NAKITA
--- NOTE | 2019-09-21 19:56 | NUR ---
NURSE NOTES: Received patient from ED, via gurney, patient is awake, alert, oriented x4, able to make her needs known, skin is clean dry and intact, IV site is clean dry and intact, 20 gauge, running 1 unit of PRBC, tolerating it well, patients hemoglobin is 4.3, patient has cane at bedside, belongings list been verified and signed. Oriented to the room, call light is within reach, bed is lowered, locked, alarm is on, will continue to monitor for comfort and safety.
[2019-09-21 20:00] VITALS: BP 115/74
[2019-09-21] MEDS: Metoprolol Tartrate 50mg tab ORAL SCH (21:44)
[2019-09-22] VITALS: BP 120/61
--- NOTE | 2019-09-22 01:08 | NUR ---
NURSE NOTES: Patient received 2 units of PRBC, tolerated well, no adverse reaction noted.
[2019-09-22 04:00] VITALS: BP 122/65
[2019-09-22 06:29] LABS: HEMATOCRIT 19.8 % (37.0-47.0); MEAN CORPUSCULAR VOLUME 95 FL (80-99); PLATELET COUNT 187 K/UL (150-450); RED BLOOD COUNT 2.08 M/UL (4.20-5.40); RED CELL DISTRIBUTION WIDTH 21.3 % (11.6-14.8); WHITE BLOOD COUNT 6.8 K/UL (4.8-10.8)
[2019-09-22 06:54] LABS: ALANINE AMINOTRANSFERASE 10 U/L (12-78); ALBUMIN 2.9 G/DL (3.4-5.0); ALBUMIN/GLOBULIN RATIO 0.9 (1.0-2.7); ALKALINE PHOSPHATASE 60 U/L (46-116); ANION GAP 7 mmol/L (5-15); ASPARTATE AMINO TRANSFERASE 12 U/L (15-37); BILIRUBIN,TOTAL 0.9 MG/DL (0.2-1.0); BLOOD UREA NITROGEN 21 mg/dL (7-18); CALCIUM 8.4 MG/DL (8.5-10.1); CARBON DIOXIDE 25 MMOL/L (21-32); CHLORIDE 107 MMOL/L (98-107); CREATININE 0.9 MG/DL (0.55-1.30); PHOSPHORUS 3.2 MG/DL (2.5-4.9); SODIUM 139 MMOL/L (136-145)
--- NOTE | 2019-09-22 07:17 | NUR ---
NURSE HAND-OFF REPORT: Important Events on Shift:recieved 2 units PRBC, tolerated well Patient Status: stable Diet: regular Pending Orders: labs Pending Results/Labs:am shift to follow up on hemoglobin Pending MD notification: Latest Vital Signs: Temperature 97.6 , Pulse 59 , B/P 122 /65 , Respiratory Rate 15 , O2 SAT 96 , Room Air, O2 Flow Rate . Vital Sign Comment: EKG Rhythm: Sinus Bradycardia Rhythm change?: N MD Notified?: - MD Response: Latest Yepez Fall Score: 35 Fall Risk: Medium Risk Safety Measures: Call light Within Reach, Bed Alarm Zone 1, Side Rails Side Rails x1, Bed position Low and Locked. Fall Precautions: Report given to Wood ROTH
[2019-09-22 07:20] LABS: HEMOGLOBIN 6.4 G/DL (12.0-16.0)
--- NOTE | 2019-09-22 07:30 | NUR ---
NURSE NOTES: Received pt from Ashlee ROTH, Pt is awake and alert, pt is in RA, no SOB or acute respiratory distress noted. pt is on continues heart monitoring, pt has intact iv access RAC 20G SL. Dr Mejia is aware about HB 6.4 and HCT 19.8 waiting to call back. Pt is eating breakfast by observation. No complain of pain at this moment. all needs attended, bed is locked and is in the lowest position, call light within easy reach. will continue to monitor.
[2019-09-22 08:00] VITALS: BP 110/56
--- NOTE | 2019-09-22 08:37 | NUR ---
NURSE NOTES: Dr Mejia called back and ordered 2 more unit PRBC, noted and carried out. will continue to monitor.
[2019-09-22] MEDS ORDERED: Heparin 5000 units/ml inj SUBQ SCH (09:00)
[2019-09-22] MEDS: Metoprolol Tartrate 50mg tab ORAL SCH ×2 (09:36→21:42)
[2019-09-22] MEDS: Amiodarone 200mg tab ORAL SCH (09:37)
--- NOTE | 2019-09-22 10:46 | NUR ---
NURSE NOTES: Dr Beatty visited pt and ordered to D/C Hep and add SCD, noted and carried out. will continue to monitor.
--- NOTE | 2019-09-22 11:05 | Cardiac Electrophysiology PN ---
Subjective Subjective [id number] Objective Last 24 Hour Vital Signs Date Time Temp Pulse Resp B/P (MAP) Pulse Ox O2 Delivery O2 Flow Rate FiO2 09/22/19 09:36 63 110/56 09/22/19 08:00 98.8 63 18 110/56 (74) 93 09/22/19 07:43 62 09/22/19 04:00 97.6 78 15 122/65 (84) 96 09/22/19 04:00 59 09/22/19 00:00 61 09/22/19 00:00 97.8 62 18 120/61 (80) 95 09/21/19 21:44 78 121/74 09/21/19 21:00 Room Air 09/21/19 20:00 68 09/21/19 20:00 98.8 78 18 115/74 (88) 98 09/21/19 19:40 Room Air 09/21/19 19:10 98.0 70 16 96 Room Air 09/21/19 19:05 98.2 72 14 106/45 99 Room Air 09/21/19 18:35 77 14 108/67 96 Room Air 09/21/19 18:31 98.3 77 16 107/77 99 Room Air 09/21/19 17:00 72 16 106/57 95 Room Air 09/21/19 15:47 98.2 72 14 118/49 99 Room Air 09/21/19 14:57 14 Room Air 09/21/19 14:14 98.1 76 20 102/52 (69) Room Air Intake and Output 09/21/19 09/22/19 19:00 07:00 Intake Total 500 ml 1000 ml Balance 500 ml 1000 ml Intake IV Total 500 ml Blood Product 1000 ml # Voids 1 3 # Bowel Movements 2 Laboratory Tests Test 09/21/19 13:49 09/21/19 15:09 09/21/19 15:20 09/22/19 05:28 White Blood Count 6.1 K/UL (4.8-10.8) 6.8 K/UL (4.8-10.8) Red Blood Count 1.50 M/UL (4.20-5.40) L 2.08 M/UL (4.20-5.40) L Hemoglobin 4.8 G/DL (12.0-16.0) *L 6.4 G/DL (12.0-16.0) Hematocrit 15.0 % (37.0-47.0) L 19.8 % (37.0-47.0) #L Mean Corpuscular Volume 100 FL (80-99) H 95 FL (80-99) Mean Corpuscular Hemoglobin 32.4 PG (27.0-31.0) H 30.8 PG (27.0-31.0) Mean Corpuscular Hemoglobin Concent 32.4 G/DL (32.0-36.0) 32.3 G/DL (32.0-36.0) Red Cell Distribution Width 24.1 % (11.6-14.8) H 21.3 % (11.6-14.8) H Platelet Count 209 K/UL (150-450) 187 K/UL (150-450) Mean Platelet Volume 12.9 FL (6.5-10.1) H 10.8 FL (6.5-10.1) H Neutrophils (%) (Auto) % (45.0-75.0) % (45.0-75.0) Lymphocytes (%) (Auto) % (20.0-45.0) % (20.0-45.0) Monocytes (%) (Auto) % (1.0-10.0) % (1.0-10.0) Eosinophils (%) (Auto) % (0.0-3.0) % (0.0-3.0) Basophils (%) (Auto) % (0.0-2.0) % (0.0-2.0) Differential Total Cells Counted 100 Neutrophils % (Manual) 72 % (45-75) Pending Lymphocytes % (Manual) 20 % (20-45) Pending Monocytes % (Manual) 5 % (1-10) Eosinophils % (Manual) 0 % (0-3) Basophils % (Manual) 0 % (0-2) Metamyelocytes % 1 % (0-0) H Myelocytes % 2 % (0-0) H Band Neutrophils 0 % (0-8) Platelet Estimate Adequate Pending Platelet Morphology Normal Pending Giant Platelets 1+ Prothrombin Time 14.0 SEC (9.30-11.50) H Prothromb Time International Ratio 1.3 (0.9-1.1) H Activated Partial Thromboplast Time 37 SEC (23-33) H Sodium Level 139 MMOL/L (136-145) 139 MMOL/L (136-145) Potassium Level 4.0 MMOL/L (3.5-5.1) 4.0 MMOL/L (3.5-5.1) Chloride Level 106 MMOL/L (98-107) 107 MMOL/L (98-107) Carbon Dioxide Level 23 MMOL/L (21-32) 25 MMOL/L (21-32) Anion Gap 10 mmol/L (5-15) 7 mmol/L (5-15) Blood Urea Nitrogen 23 mg/dL (7-18) H 21 mg/dL (7-18) H Creatinine 0.9 MG/DL (0.55-1.30) 0.9 MG/DL (0.55-1.30) Estimat Glomerular Filtration Rate > 60 mL/min (>60) > 60 mL/min (>60) Glucose Level 130 MG/DL (74-106) H 89 MG/DL (74-106) Calcium Level 8.9 MG/DL (8.5-10.1) 8.4 MG/DL (8.5-10.1) L Total Bilirubin 0.7 MG/DL (0.2-1.0) 0.9 MG/DL (0.2-1.0) Aspartate Amino Transf (AST/SGOT) 13 U/L (15-37) L 12 U/L (15-37) L Alanine Aminotransferase (ALT/SGPT) 10 U/L (12-78) L 10 U/L (12-78) L Alkaline Phosphatase 69 U/L (46-116) 60 U/L (46-116) Total Creatine Kinase 12 U/L (26-308) L Creatine Kinase MB 0.6 NG/ML (0.0-3.6) Creatine Kinase MB Relative Index 5.0 Troponin I 0.000 ng/mL (0.000-0.056) 0.000 ng/mL (0.000-0.056) Pro-B-Type Natriuretic Peptide 1954 pg/mL (0-125) H Total Protein 7.0 G/DL (6.4-8.2) 6.3 G/DL (6.4-8.2) L Albumin 3.2 G/DL (3.4-5.0) L 2.9 G/DL (3.4-5.0) L Globulin 3.8 g/dL 3.4 g/dL Albumin/Globulin Ratio 0.8 (1.0-2.7) L 0.9 (1.0-2.7) L POC Whole Blood Glucose 92 MG/DL (74-106) Urine Color Yellow Urine Appearance Clear Urine pH 5 (4.5-8.0) Urine Specific Bland 1.020 (1.005-1.035) Urine Protein 2+ (NEGATIVE) H Urine Glucose (UA) Negative (NEGATIVE) Urine Ketones Negative (NEGATIVE) Urine Blood Negative (NEGATIVE) Urine Nitrite Negative (NEGATIVE) Urine Bilirubin Negative (NEGATIVE) Urine Urobilinogen 1 MG/DL (0.0-1.0) H Urine Leukocyte Esterase 1+ (NEGATIVE) H Urine RBC 0-2 /HPF (0 - 2) Urine WBC 0-2 /HPF (0 - 2) Urine Squamous Epithelial Cells Occasional /LPF Urine Bacteria Moderate /HPF (NONE) H Phosphorus Level 3.2 MG/DL (2.5-4.9) Magnesium Level 2.0 MG/DL (1.8-2.4) Microbiology Date/Time Source Procedure Growth Status 09/21/19 15:23 Nasopharynx SARS-CoV-2 RdRp Gene Assay - Final Complete 09/21/19 15:20 Urine,Clean Catch Urine Culture - Preliminary Resulted 09/21/19 15:20 Rectum Received River Freitas MD Sep 22, 2019 11:05
--- NOTE | 2019-09-22 11:35 | Consultation ---
History of Present Illness General Date patient seen: Sep 22, 2019 Chief Complaint: Generalized Weakness Present Illness HPI 79 year-old female with PHMx of JAK2 mutation, polycythemia vera > 10, myelofibrosis HTN, CVA/TIA, atrial fib, pacemaker presented to ED for evaluation of increased weakness. She was found to be profoundly anemic and is admitted for further work up. Allergies: Coded Allergies: No Known Allergies (Unverified , 04/24/18) Medication History Scheduled Amiodarone Hcl* (Pacerone*), 200 MG ORAL DAILY, (Reported) Furosemide* (Lasix*), 20 MG ORAL DAILY Gabapentin* (Gabapentin*), 300 MG ORAL THREE TIMES A DAY, (Reported) Hydroxyurea* (HYDREA 500mg*), 500 MG PO DAILY, (Reported) Loratadine (Loratadine), 10 MG PO DAILY, (Reported) Metoprolol Tartrate* (Metoprolol Tartrate*), 50 MG ORAL EVERY 12 HOURS Scheduled PRN Diphenhydramine Hcl* (Diphenhydramine Hcl*), 25 MG ORAL DAILY PRN for ALLERGIES, (Reported) Patient History Healthcare decision maker N Resuscitation status Advanced Directive on File Past Medical/Surgical History Past Medical/Surgical History: (1) COPD (chronic obstructive pulmonary disease) (2) KELVIN (obstructive sleep apnea) (3) Peripheral neuropathy (4) Myelofibrosis (5) JAK2 V617F mutation (6) Pacemaker (7) Paroxysmal A-fib Review of Systems Constitutional: Reports: malaise, weakness All Other Systems: negative except mentioned in HPI Physical Exam General Appearance: WD/WN, no apparent distress Lines, tubes and drains: peripheral, central line HEENT: normocephalic, atraumatic Neck: non-tender, normal alignment, supple Respiratory/Chest: chest wall non-tender, lungs clear, normal breath sounds Cardiovascular/Chest: normal peripheral pulses, normal rate, regularly irregular Abdomen: normal bowel sounds, non tender, soft, no organomegaly Last 24 Hour Vital Signs Date Time Temp Pulse Resp B/P (MAP) Pulse Ox O2 Delivery O2 Flow Rate FiO2 09/22/19 09:36 63 110/56 09/22/19 08:00 98.8 63 18 110/56 (74) 93 09/22/19 07:43 62 09/22/19 04:00 97.6 78 15 122/65 (84) 96 09/22/19 04:00 59 09/22/19 00:00 61 09/22/19 00:00 97.8 62 18 120/61 (80) 95 09/21/19 21:44 78 121/74 09/21/19 21:00 Room Air 09/21/19 20:00 68 09/21/19 20:00 98.8 78 18 115/74 (88) 98 09/21/19 19:40 Room Air 09/21/19 19:10 98.0 70 16 96 Room Air 09/21/19 19:05 98.2 72 14 106/45 99 Room Air 09/21/19 18:35 77 14 108/67 96 Room Air 09/21/19 18:31 98.3 77 16 107/77 99 Room Air 09/21/19 17:00 72 16 106/57 95 Room Air 09/21/19 15:47 98.2 72 14 118/49 99 Room Air 09/21/19 14:57 14 Room Air 09/21/19 14:14 98.1 76 20 102/52 (69) Room Air Intake and Output 09/21/19 09/22/19 19:00 07:00 Intake Total 500 ml 1000 ml Balance 500 ml 1000 ml Intake IV Total 500 ml Blood Product 1000 ml # Voids 1 3 # Bowel Movements 2 Laboratory Tests Test 09/21/19 13:49 09/21/19 15:09 09/21/19 15:20 09/22/19 05:28 White Blood Count 6.1 K/UL (4.8-10.8) 6.8 K/UL (4.8-10.8) Red Blood Count 1.50 M/UL (4.20-5.40) L 2.08 M/UL (4.20-5.40) L Hemoglobin 4.8 G/DL (12.0-16.0) *L 6.4 G/DL (12.0-16.0) Hematocrit 15.0 % (37.0-47.0) L 19.8 % (37.0-47.0) #L Mean Corpuscular Volume 100 FL (80-99) H 95 FL (80-99) Mean Corpuscular Hemoglobin 32.4 PG (27.0-31.0) H 30.8 PG (27.0-31.0) Mean Corpuscular Hemoglobin Concent 32.4 G/DL (32.0-36.0) 32.3 G/DL (32.0-36.0) Red Cell Distribution Width 24.1 % (11.6-14.8) H 21.3 % (11.6-14.8) H Platelet Count 209 K/UL (150-450) 187 K/UL (150-450) Mean Platelet Volume 12.9 FL (6.5-10.1) H 10.8 FL (6.5-10.1) H Neutrophils (%) (Auto) % (45.0-75.0) % (45.0-75.0) Lymphocytes (%) (Auto) % (20.0-45.0) % (20.0-45.0) Monocytes (%) (Auto) % (1.0-10.0) % (1.0-10.0) Eosinophils (%) (Auto) % (0.0-3.0) % (0.0-3.0) Basophils (%) (Auto) % (0.0-2.0) % (0.0-2.0) Differential Total Cells Counted 100 Neutrophils % (Manual) 72 % (45-75) Pending Lymphocytes % (Manual) 20 % (20-45) Pending Monocytes % (Manual) 5 % (1-10) Eosinophils % (Manual) 0 % (0-3) Basophils % (Manual) 0 % (0-2) Metamyelocytes % 1 % (0-0) H Myelocytes % 2 % (0-0) H Band Neutrophils 0 % (0-8) Platelet Estimate Adequate Pending Platelet Morphology Normal Pending Giant Platelets 1+ Prothrombin Time 14.0 SEC (9.30-11.50) H Prothromb Time International Ratio 1.3 (0.9-1.1) H Activated Partial Thromboplast Time 37 SEC (23-33) H Sodium Level 139 MMOL/L (136-145) 139 MMOL/L (136-145) Potassium Level 4.0 MMOL/L (3.5-5.1) 4.0 MMOL/L (3.5-5.1) Chloride Level 106 MMOL/L (98-107) 107 MMOL/L (98-107) Carbon Dioxide Level 23 MMOL/L (21-32) 25 MMOL/L (21-32) Anion Gap 10 mmol/L (5-15) 7 mmol/L (5-15) Blood Urea Nitrogen 23 mg/dL (7-18) H 21 mg/dL (7-18) H Creatinine 0.9 MG/DL (0.55-1.30) 0.9 MG/DL (0.55-1.30) Estimat Glomerular Filtration Rate > 60 mL/min (>60) > 60 mL/min (>60) Glucose Level 130 MG/DL (74-106) H 89 MG/DL (74-106) Calcium Level 8.9 MG/DL (8.5-10.1) 8.4 MG/DL (8.5-10.1) L Total Bilirubin 0.7 MG/DL (0.2-1.0) 0.9 MG/DL (0.2-1.0) Aspartate Amino Transf (AST/SGOT) 13 U/L (15-37) L 12 U/L (15-37) L Alanine Aminotransferase (ALT/SGPT) 10 U/L (12-78) L 10 U/L (12-78) L Alkaline Phosphatase 69 U/L (46-116) 60 U/L (46-116) Total Creatine Kinase 12 U/L (26-308) L Creatine Kinase MB 0.6 NG/ML (0.0-3.6) Creatine Kinase MB Relative Index 5.0 Troponin I 0.000 ng/mL (0.000-0.056) 0.000 ng/mL (0.000-0.056) Pro-B-Type Natriuretic Peptide 1954 pg/mL (0-125) H Total Protein 7.0 G/DL (6.4-8.2) 6.3 G/DL (6.4-8.2) L Albumin 3.2 G/DL (3.4-5.0) L 2.9 G/DL (3.4-5.0) L Globulin 3.8 g/dL 3.4 g/dL Albumin/Globulin Ratio 0.8 (1.0-2.7) L 0.9 (1.0-2.7) L POC Whole Blood Glucose 92 MG/DL (74-106) Urine Color Yellow Urine Appearance Clear Urine pH 5 (4.5-8.0) Urine Specific [place] 1.020 (1.005-1.035) Urine Protein 2+ (NEGATIVE) H Urine Glucose (UA) Negative (NEGATIVE) Urine Ketones Negative (NEGATIVE) Urine Blood Negative (NEGATIVE) Urine Nitrite Negative (NEGATIVE) Urine Bilirubin Negative (NEGATIVE) Urine Urobilinogen 1 MG/DL (0.0-1.0) H Urine Leukocyte Esterase 1+ (NEGATIVE) H Urine RBC 0-2 /HPF (0 - 2) Urine WBC 0-2 /HPF (0 - 2) Urine Squamous Epithelial Cells Occasional /LPF Urine Bacteria Moderate /HPF (NONE) H Phosphorus Level 3.2 MG/DL (2.5-4.9) Magnesium Level 2.0 MG/DL (1.8-2.4) Microbiology Date/Time Source Procedure Growth Status 09/21/19 15:23 Nasopharynx SARS-CoV-2 RdRp Gene Assay - Final Complete 09/21/19 15:20 Urine,Clean Catch Urine Culture - Preliminary Resulted 09/21/19 15:20 Rectum Received Height (Feet): 5 Height (Inches): 1.00 Weight (Pounds): 140 Medications Current Medications Medications (Trade) Dose Ordered Sig/Escobar Route PRN Reason Start Time Stop Time Status Last Admin Dose Admin Acetaminophen (Tylenol) 650 mg Q4H PRN ORAL T>100.5 09/21/19 19:15 10/21/19 19:14 Amiodarone HCl (Cordarone) 200 mg DAILY ORAL 09/22/19 09:00 12/21/19 08:59 09/22/19 09:37 Digoxin (Lanoxin) 0.125 mg DAILY ORAL 09/23/19 09:00 12/22/19 08:59 Gabapentin (Neurontin) 300 mg THREE TIMES A DAY ORAL 09/22/19 09:00 10/22/19 08:59 09/22/19 09:36 Metoprolol Tartrate (Lopressor) 50 mg EVERY 12 HOURS ORAL 09/21/19 21:00 12/20/19 20:59 09/22/19 09:36 Ondansetron HCl (Zofran) 4 mg Q6H PRN IVP Nausea & Vomiting 09/21/19 19:15 10/21/19 19:14 Zolpidem Tartrate (Ambien) 5 mg HSPRN PRN ORAL Insomnia 09/21/19 19:15 09/28/19 19:14 Assessment/Plan Problem List: (1) Anemia ICD Codes: D64.9 - Anemia, unspecified SNOMED: 557580171 (2) JAK2 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 ( Kelly Mejia MD Sep 22, 2019 11:35
[2019-09-22 12:00] VITALS: BP 113/79
--- NOTE | 2019-09-22 13:15 | Consultation ---
DATE OF CONSULTATION: 09/22/2019 CARDIOLOGY CONSULTATION CONSULTING PHYSICIAN: River Freitas MD. REFERRING PHYSICIAN: Atnonio Adrian MD. REASON FOR CONSULTATION: Management of atrial fibrillation and hypertension in a patient with history of pacemaker. HISTORY OF PRESENT ILLNESS: The patient is an 79-year-old lady with history of hypertension, paroxysmal atrial fibrillation, history of pacemaker implantation by me in 2010 as well as generator change in 2018 as well as history of polycythemia vera, CVA and coronary artery disease as well as history of right hemothorax in June 2019 for which she underwent video-assisted thorascopic surgery on 07/02/2019. The patient presented to the emergency room with generalized weakness. The patient was found to be profoundly anemic. The patient has already received two units of blood transfusion. Her hemoglobin on admission was 4.8 and today is 6.5, and she was given two more units of blood. There is no obvious source of bleeding. At the time of my evaluation, the patient denies any chest pain or shortness of breath. REVIEW OF SYSTEMS: Negative other than what was mentioned in the history of present illness. PAST MEDICAL HISTORY: As mentioned above. FAMILY HISTORY: Noncontributory. SOCIAL HISTORY: She lives at home. Does not smoke or drink alcohol. PHYSICAL EXAMINATION: VITAL SIGNS: Show blood pressure 110/56, pulse 63, respirations 18, and temperature 98.8. HEAD AND NECK: Showed no JVD or carotid bruits. Sclerae are very pale. LUNGS: Clear. CARDIOVASCULAR: Shows regular S1 and S2 with no gallop. Pacemaker in the left subclavian, healed. ABDOMEN: Soft. EXTREMITIES: No pitting edema. LABORATORY AND DIAGNOSTIC DATA: Her labs show white count of 6.8, hemoglobin was 4.8 that improved to 6.5 after blood transfusion. Platelet count is 187,000. Her sodium is 139, potassium 4.0, BUN of 21, creatinine 0.9, and glucose of 89. Her troponins are negative x2. Her BNP is 1954. ASSESSMENT AND PLAN: 1. Weakness due to profound anemia, hemoglobin of 4.8. The patient already receiving four units of blood transfusion. The patient has been kept off anticoagulation in view of the patient's history of severe anemia requiring multiple blood transfusions in the past. 2. Status post [employer] pacemaker implantation by tn in 2010 and generator change by tn in 2018 with normal function by interrogation on last visit. 3. Paroxysmal atrial fibrillation with rapid ventricular response and atrially paced rhythm, on amiodarone 200 mg daily, metoprolol 50 mg b.i.d., and digoxin 0.125 mg daily, will be kept off anticoagulation. 4. Hypertension, on metoprolol. 5. Urinary tract infection. 6. History of polycythemia vera. 7. Severe pulmonary hypertension with PA pressure of 71. 8. Hemothorax status post VATS by Dr. Malik in 2020. 9. Generalized weakness because of the patient's severe anemia. Thank you very much, Dr. Adrian, for allowing me to participate in the care of this patient. Please do not hesitate to contact me for any questions regarding my evaluation. River Freitas M.D. DR: DESIREE JOB#: [id number] CC:
--- NOTE | 2019-09-22 13:44 | Consultation ---
History of Present Illness General Date patient seen: Sep 22, 2019 Reason for Hospitalization: Generalized Weakness Present Illness HPI This is an 79-year-old female well-known to me from prior admission and surgery in June 2019. Patient at that time had significant thorax status post VATS and tube placement. Tube was removed successfully and patient was discharged in stable condition and has been well in a care facility since. Patient was identified to have generalized worsening weakness and was brought to [facility] ED for evaluation which time was found to be profoundly anemic and admitted for further care and management. Considerations of potential GI bleed as etiology of severe anemia and given history prior surgery and care plan surgery was called to evaluate and assist with care. Patient seen, patient by, chart reviewed. patient started on protonix IV. pending studies Allergies: Coded Allergies: No Known Allergies (Unverified , 04/24/18) COVID-19 Screening Contact w/high risk pt: No Recent Travel to affected area: No Experienced COVID-19 symptoms?: No Medication History Scheduled Amiodarone Hcl* (Pacerone*), 200 MG ORAL DAILY, (Reported) Furosemide* (Lasix*), 20 MG ORAL DAILY Gabapentin* (Gabapentin*), 300 MG ORAL THREE TIMES A DAY, (Reported) Hydroxyurea* (HYDREA 500mg*), 500 MG PO DAILY, (Reported) Loratadine (Loratadine), 10 MG PO DAILY, (Reported) Metoprolol Tartrate* (Metoprolol Tartrate*), 50 MG ORAL EVERY 12 HOURS Scheduled PRN Diphenhydramine Hcl* (Diphenhydramine Hcl*), 25 MG ORAL DAILY PRN for ALLERGIES, (Reported) Patient History Limited by: medical condition History Provided By: Medical Record, PMD Healthcare decision maker N Resuscitation status Advanced Directive on File Past Medical/Surgical History Past Medical/Surgical History: (1) ACS (acute coronary syndrome) (2) Pyelonephritis (3) CAD (coronary artery disease) (4) COPD (chronic obstructive pulmonary disease) (5) positional vertigo (6) KELVIN (obstructive sleep apnea) (7) Peripheral neuropathy (8) Myelofibrosis (9) JAK2 V617F mutation (10) UTI (urinary tract infection) (11) Polycythemia vera (12) Pacemaker (13) Acute encephalopathy (14) Chronic anticoagulation (15) RLL pneumonia (16) Hematothorax (17) Thoracostomy tube in place (18) Collapse of left lung (19) Paroxysmal A-fib (20) Anemia Review of Systems Review of Symptoms General ROS: no weight loss or fever Psychological ROS: no depression or mood changes, no memory loss Ophthalmic ROS: no visual changes or eye irritation ENT ROS: no nasal congestion, hearing loss, dizziness Allergy and Immunology ROS: no allergic symptoms or urticaria Hematological and Lymphatic ROS: no swollen glands, unusual bleeding or bruising Endocrine ROS: no polyuria, polydipsia, weight changes, temperature intolerance Respiratory ROS: no cough, shortness of breath, or wheezing Cardiovascular ROS: no chest pain or dyspnea on exertion Gastrointestinal ROS: denies abdominal pain, bright red blood in stool. Musculoskeletal ROS: no myalgias or arthralgias Neurological ROS: no TIA or stroke symptoms Dermatological ROS: no new or changing skin lesions, rashes or pruritis limited given medical condition Physical Exam Physical Exam General appearance: alert, cooperative, no distress, appears stated age Head: Normocephalic, without obvious abnormality, atraumatic Eyes: conjunctivae/corneas clear. PERRL, EOM's intact. Fundi benign Throat: Lips, mucosa, and tongue normal. Teeth and gums normal Neck: supple, symmetrical, trachea midline, no adenopathy, thyroid: not enlarged, symmetric, no tenderness/mass/nodules, no carotid bruit and no JVD Lungs: clear to auscultation bilaterally Heart: regular rate and rhythm, S1, S2 normal, no murmur, click, rub or gallop Abdomen: soft, non-tender. Bowel sounds normal. No masses, no organomegaly Extremities: extremities normal, atraumatic, no cyanosis or edema Pulses: 2+ and symmetric Skin: Skin color, texture, turgor normal. No rashes or lesions Neurologic: Grossly normal Last 24 Hour Vital Signs Date Time Temp Pulse Resp B/P (MAP) Pulse Ox O2 Delivery O2 Flow Rate FiO2 09/22/19 12:00 98.4 61 20 113/79 (90) 91 09/22/19 09:36 63 110/56 09/22/19 08:00 98.8 63 18 110/56 (74) 93 09/22/19 07:43 62 09/22/19 04:00 97.6 78 15 122/65 (84) 96 09/22/19 04:00 59 09/22/19 00:00 61 09/22/19 00:00 97.8 62 18 120/61 (80) 95 09/21/19 21:44 78 121/74 09/21/19 21:00 Room Air 09/21/19 20:00 68 09/21/19 20:00 98.8 78 18 115/74 (88) 98 09/21/19 19:40 Room Air 09/21/19 19:10 98.0 70 16 96 Room Air 09/21/19 19:05 98.2 72 14 106/45 99 Room Air 09/21/19 18:35 77 14 108/67 96 Room Air 09/21/19 18:31 98.3 77 16 107/77 99 Room Air 09/21/19 17:00 72 16 106/57 95 Room Air 09/21/19 15:47 98.2 72 14 118/49 99 Room Air 09/21/19 14:57 14 Room Air 09/21/19 14:14 98.1 76 20 102/52 (69) Room Air Intake and Output 09/21/19 09/22/19 19:00 07:00 Intake Total 500 ml 1000 ml Balance 500 ml 1000 ml Intake IV Total 500 ml Blood Product 1000 ml # Voids 1 3 # Bowel Movements 2 Laboratory Tests Test 09/21/19 13:49 09/21/19 15:09 09/21/19 15:20 09/22/19 05:28 White Blood Count 6.1 K/UL (4.8-10.8) 6.8 K/UL (4.8-10.8) Red Blood Count 1.50 M/UL (4.20-5.40) L 2.08 M/UL (4.20-5.40) L Hemoglobin 4.8 G/DL (12.0-16.0) *L 6.4 G/DL (12.0-16.0) Hematocrit 15.0 % (37.0-47.0) L 19.8 % (37.0-47.0) #L Mean Corpuscular Volume 100 FL (80-99) H 95 FL (80-99) Mean Corpuscular Hemoglobin 32.4 PG (27.0-31.0) H 30.8 PG (27.0-31.0) Mean Corpuscular Hemoglobin Concent 32.4 G/DL (32.0-36.0) 32.3 G/DL (32.0-36.0) Red Cell Distribution Width 24.1 % (11.6-14.8) H 21.3 % (11.6-14.8) H Platelet Count 209 K/UL (150-450) 187 K/UL (150-450) Mean Platelet Volume 12.9 FL (6.5-10.1) H 10.8 FL (6.5-10.1) H Neutrophils (%) (Auto) % (45.0-75.0) % (45.0-75.0) Lymphocytes (%) (Auto) % (20.0-45.0) % (20.0-45.0) Monocytes (%) (Auto) % (1.0-10.0) % (1.0-10.0) Eosinophils (%) (Auto) % (0.0-3.0) % (0.0-3.0) Basophils (%) (Auto) % (0.0-2.0) % (0.0-2.0) Differential Total Cells Counted 100 100 Neutrophils % (Manual) 72 % (45-75) 83 % (45-75) H Lymphocytes % (Manual) 20 % (20-45) 10 % (20-45) L Monocytes % (Manual) 5 % (1-10) 1 % (1-10) Eosinophils % (Manual) 0 % (0-3) 0 % (0-3) Basophils % (Manual) 0 % (0-2) 2 % (0-2) Metamyelocytes % 1 % (0-0) H Myelocytes % 2 % (0-0) H Band Neutrophils 0 % (0-8) 4 % (0-8) Platelet Estimate Adequate Adequate Platelet Morphology Normal Normal Giant Platelets 1+ Prothrombin Time 14.0 SEC (9.30-11.50) H Prothromb Time International Ratio 1.3 (0.9-1.1) H Activated Partial Thromboplast Time 37 SEC (23-33) H Sodium Level 139 MMOL/L (136-145) 139 MMOL/L (136-145) Potassium Level 4.0 MMOL/L (3.5-5.1) 4.0 MMOL/L (3.5-5.1) Chloride Level 106 MMOL/L (98-107) 107 MMOL/L (98-107) Carbon Dioxide Level 23 MMOL/L (21-32) 25 MMOL/L (21-32) Anion Gap 10 mmol/L (5-15) 7 mmol/L (5-15) Blood Urea Nitrogen 23 mg/dL (7-18) H 21 mg/dL (7-18) H Creatinine 0.9 MG/DL (0.55-1.30) 0.9 MG/DL (0.55-1.30) Estimat Glomerular Filtration Rate > 60 mL/min (>60) > 60 mL/min (>60) Glucose Level 130 MG/DL (74-106) H 89 MG/DL (74-106) Calcium Level 8.9 MG/DL (8.5-10.1) 8.4 MG/DL (8.5-10.1) L Total Bilirubin 0.7 MG/DL (0.2-1.0) 0.9 MG/DL (0.2-1.0) Aspartate Amino Transf (AST/SGOT) 13 U/L (15-37) L 12 U/L (15-37) L Alanine Aminotransferase (ALT/SGPT) 10 U/L (12-78) L 10 U/L (12-78) L Alkaline Phosphatase 69 U/L (46-116) 60 U/L (46-116) Total Creatine Kinase 12 U/L (26-308) L Creatine Kinase MB 0.6 NG/ML (0.0-3.6) Creatine Kinase MB Relative Index 5.0 Troponin I 0.000 ng/mL (0.000-0.056) 0.000 ng/mL (0.000-0.056) Pro-B-Type Natriuretic Peptide 1954 pg/mL (0-125) H Total Protein 7.0 G/DL (6.4-8.2) 6.3 G/DL (6.4-8.2) L Albumin 3.2 G/DL (3.4-5.0) L 2.9 G/DL (3.4-5.0) L Globulin 3.8 g/dL 3.4 g/dL Albumin/Globulin Ratio 0.8 (1.0-2.7) L 0.9 (1.0-2.7) L POC Whole Blood Glucose 92 MG/DL (74-106) Urine Color Yellow Urine Appearance Clear Urine pH 5 (4.5-8.0) Urine Specific [place] 1.020 (1.005-1.035) Urine Protein 2+ (NEGATIVE) H Urine Glucose (UA) Negative (NEGATIVE) Urine Ketones Negative (NEGATIVE) Urine Blood Negative (NEGATIVE) Urine Nitrite Negative (NEGATIVE) Urine Bilirubin Negative (NEGATIVE) Urine Urobilinogen 1 MG/DL (0.0-1.0) H Urine Leukocyte Esterase 1+ (NEGATIVE) H Urine RBC 0-2 /HPF (0 - 2) Urine WBC 0-2 /HPF (0 - 2) Urine Squamous Epithelial Cells Occasional /LPF Urine Bacteria Moderate /HPF (NONE) H Anisocytosis 2+ Phosphorus Level 3.2 MG/DL (2.5-4.9) Magnesium Level 2.0 MG/DL (1.8-2.4) Microbiology Date/Time Source Procedure Growth Status 09/21/19 15:23 Nasopharynx SARS-CoV-2 RdRp Gene Assay - Final Complete 09/21/19 15:20 Urine,Clean Catch Urine Culture - Preliminary Resulted 09/21/19 15:20 Rectum Received Height (Feet): 5 Height (Inches): 1.00 Weight (Pounds): 140 Medications Current Medications Medications (Trade) Dose Ordered Sig/Escobar Route PRN Reason Start Time Stop Time Status Last Admin Dose Admin Acetaminophen (Tylenol) 650 mg Q4H PRN ORAL T>100.5 09/21/19 19:15 10/21/19 19:14 Amiodarone HCl (Cordarone) 200 mg DAILY ORAL 09/22/19 09:00 12/21/19 08:59 09/22/19 09:37 Digoxin (Lanoxin) 0.125 mg DAILY ORAL 09/23/19 09:00 12/22/19 08:59 Gabapentin (Neurontin) 300 mg THREE TIMES A DAY ORAL 09/22/19 09:00 10/22/19 08:59 09/22/19 13:18 Metoprolol Tartrate (Lopressor) 50 mg EVERY 12 HOURS ORAL 09/21/19 21:00 12/20/19 20:59 09/22/19 09:36 Ondansetron HCl (Zofran) 4 mg Q6H PRN IVP Nausea & Vomiting 09/21/19 19:15 10/21/19 19:14 Zolpidem Tartrate (Ambien) 5 mg HSPRN PRN ORAL Insomnia 09/21/19 19:15 09/28/19 19:14 Assessment/Plan Problem List: (1) ACS (acute coronary syndrome) ICD Codes: I20.0 - Unstable angina SNOMED: 825394022 (2) Pyelonephritis ICD Codes: N12 - Tubulo-interstitial nephritis, not specified as acute or chronic SNOMED: 11545142 (3) CAD (coronary artery disease) ICD Codes: I25.10 - Atherosclerotic heart disease of [place] coronary artery without angina pectoris SNOMED: 39752695 (4) COPD (chronic obstructive pulmonary disease) ICD Codes: J44.9 - Chronic obstructive pulmonary disease, unspecified SNOMED: 23649385 (5) positional vertigo (6) KELVIN (obstructive sleep apnea) ICD Codes: G47.33 - Obstructive sleep apnea (adult) (pediatric) SNOMED: 72261527 (7) Peripheral neuropathy ICD Codes: G62.9 - Polyneuropathy, unspecified SNOMED: 358143637 (8) Myelofibrosis ICD Codes: D75.81 - Myelofibrosis SNOMED: 54170637 (9) JAK2 V617F mutation ICD Codes: Z15.89 - Genetic susceptibility to other disease SNOMED: 62607061 (10) UTI (urinary tract infection) ICD Codes: N39.0 - Urinary tract infection, site not specified SNOMED: 07939181 (11) Polycythemia vera ICD Codes: D45 - Polycythemia vera SNOMED: 111198886 (12) Pacemaker ICD Codes: Z95.0 - Presence of cardiac pacemaker SNOMED: 902233200 (13) Acute encephalopathy ICD Codes: G93.40 - Encephalopathy, unspecified SNOMED: 89489070, 703533539 (14) Chronic anticoagulation ICD Codes: Z79.01 - reservationist (current) use of anticoagulants SNOMED: 966792838 (15) RLL pneumonia ICD Codes: J18.9 - Pneumonia, unspecified organism SNOMED: 289011475 (16) Hematothorax ICD Codes: J94.2 - Hemothorax SNOMED: 97695599 (17) Thoracostomy tube in place ICD Codes: Z96.89 - Presence of other specified functional implants SNOMED: 139187993 (18) Collapse of left lung ICD Codes: J98.11 - Atelectasis SNOMED: 72743931 (19) Paroxysmal A-fib ICD Codes: I48.0 - Paroxysmal atrial fibrillation SNOMED: 089747675 (20) Anemia Assessment & Plan: severe anemia. hx of bleeding held anticoagulation since prior right hemothorax s/p evacuation and vats transfusing prbc coags noted may need ffp ddx includes possible GI hemorrhage. protonix ordered pending GI eval consider scope CT once stable US abd ordered thank you will follow with recs trend h/h transfuse prn ICD Codes: D64.9 - Anemia, unspecified SNOMED: 970921179 Errol Estrada Sep 22, 2019 13:44
[2019-09-22] MEDS: Pantoprazole Inj IVP SCH ×2 (13:50→21:41)
--- NOTE | 2019-09-22 14:19 | NUR ---
NURSE NOTES: blood transfusion started 1150 and finished 1420, no reaction noted. pt is stable, V/S stable. V/S checked Q15min. will continue to monitor.
[2019-09-22 16:00] VITALS: BP 118/59
--- NOTE | 2019-09-22 17:23 | NUR ---
NURSE NOTES: blood transfusion started 1432 and finished 1725, no reaction noted. V/S checked Q15min, pt is stable. will continue to monitor.
--- NOTE | 2019-09-22 17:55 | Internal Med Progress Note ---
Subjective Date of Service: Sep 22, 2019 Physician Name GraceRoshan Attending Physician Antonio Adrian MD Current Medications Medications (Trade) Dose Ordered Sig/Escobar Route PRN Reason Start Time Stop Time Status Last Admin Dose Admin Acetaminophen (Tylenol) 650 mg Q4H PRN ORAL T>100.5 09/21/19 19:15 10/21/19 19:14 Amiodarone HCl (Cordarone) 200 mg DAILY ORAL 09/22/19 09:00 12/21/19 08:59 09/22/19 09:37 Digoxin (Lanoxin) 0.125 mg DAILY ORAL 09/23/19 09:00 12/22/19 08:59 Gabapentin (Neurontin) 300 mg THREE TIMES A DAY ORAL 09/22/19 09:00 10/22/19 08:59 09/22/19 17:18 Metoprolol Tartrate (Lopressor) 50 mg EVERY 12 HOURS ORAL 09/21/19 21:00 12/20/19 20:59 09/22/19 09:36 Ondansetron HCl (Zofran) 4 mg Q6H PRN IVP Nausea & Vomiting 09/21/19 19:15 10/21/19 19:14 Pantoprazole (Protonix) 40 mg EVERY 12 HOURS IVP 09/22/19 13:45 10/22/19 13:44 09/22/19 13:50 Zolpidem Tartrate (Ambien) 5 mg HSPRN PRN ORAL Insomnia 09/21/19 19:15 09/28/19 19:14 Allergies: Coded Allergies: No Known Allergies (Unverified , 04/24/18) ROS Limited/Unobtainable: No Constitutional: Reports: weakness HEENT: Reports: no symptoms Cardiovascular: Reports: no symptoms Respiratory: Reports: no symptoms Gastrointestinal/Abdominal: Reports: no symptoms Genitourinary: Reports: no symptoms Neurologic/Psychiatric: Reports: no symptoms Subjective 79 YO F admitted with generalized weakness. Now severe anemia. Cover for Maryjane durand-Dr Adrian. Objective Last Vital Signs Date Time Temp Pulse Resp B/P (MAP) Pulse Ox O2 Delivery O2 Flow Rate FiO2 09/22/19 16:00 100 Nasal Cannula 2.0 28 09/22/19 16:00 98.1 61 18 118/59 (78) Laboratory Tests Test 09/22/19 05:28 White Blood Count 6.8 K/UL (4.8-10.8) Red Blood Count 2.08 M/UL (4.20-5.40) L Hemoglobin 6.4 G/DL (12.0-16.0) Hematocrit 19.8 % (37.0-47.0) #L Mean Corpuscular Volume 95 FL (80-99) Mean Corpuscular Hemoglobin 30.8 PG (27.0-31.0) Mean Corpuscular Hemoglobin Concent 32.3 G/DL (32.0-36.0) Red Cell Distribution Width 21.3 % (11.6-14.8) H Platelet Count 187 K/UL (150-450) Mean Platelet Volume 10.8 FL (6.5-10.1) H Neutrophils (%) (Auto) % (45.0-75.0) Lymphocytes (%) (Auto) % (20.0-45.0) Monocytes (%) (Auto) % (1.0-10.0) Eosinophils (%) (Auto) % (0.0-3.0) Basophils (%) (Auto) % (0.0-2.0) Differential Total Cells Counted 100 Neutrophils % (Manual) 83 % (45-75) H Lymphocytes % (Manual) 10 % (20-45) L Monocytes % (Manual) 1 % (1-10) Eosinophils % (Manual) 0 % (0-3) Basophils % (Manual) 2 % (0-2) Band Neutrophils 4 % (0-8) Platelet Estimate Adequate Platelet Morphology Normal Anisocytosis 2+ Sodium Level 139 MMOL/L (136-145) Potassium Level 4.0 MMOL/L (3.5-5.1) Chloride Level 107 MMOL/L (98-107) Carbon Dioxide Level 25 MMOL/L (21-32) Anion Gap 7 mmol/L (5-15) Blood Urea Nitrogen 21 mg/dL (7-18) H Creatinine 0.9 MG/DL (0.55-1.30) Estimat Glomerular Filtration Rate > 60 mL/min (>60) Glucose Level 89 MG/DL (74-106) Calcium Level 8.4 MG/DL (8.5-10.1) L Phosphorus Level 3.2 MG/DL (2.5-4.9) Magnesium Level 2.0 MG/DL (1.8-2.4) Total Bilirubin 0.9 MG/DL (0.2-1.0) Aspartate Amino Transf (AST/SGOT) 12 U/L (15-37) L Alanine Aminotransferase (ALT/SGPT) 10 U/L (12-78) L Alkaline Phosphatase 60 U/L (46-116) Troponin I 0.000 ng/mL (0.000-0.056) Total Protein 6.3 G/DL (6.4-8.2) L Albumin 2.9 G/DL (3.4-5.0) L Globulin 3.4 g/dL Albumin/Globulin Ratio 0.9 (1.0-2.7) L Microbiology Date/Time Source Procedure Growth Status 09/21/19 15:23 Nasopharynx SARS-CoV-2 RdRp Gene Assay - Final Complete 09/21/19 15:20 Urine,Clean Catch Urine Culture - Preliminary Resulted 09/21/19 15:20 Rectum Received Intake and Output 09/21/19 09/22/19 19:00 07:00 Intake Total 500 ml 1000 ml Balance 500 ml 1000 ml Intake IV Total 500 ml Blood Product 1000 ml # Voids 1 3 # Bowel Movements 2 Objective PHYSICAL EXAMINATION: GENERAL: The patient is a well-developed, well-nourished female, in no apparent distress. HEENT: Eyes, pupils equal and responsive to light and accommodation. Extraocular movements are intact. NECK: Supple without lymphadenopathy. CHEST: Lungs are clear to auscultation bilaterally without wheezes or rales. CARDIOVASCULAR: Regular rate. S1-S2 are normal without murmurs, rubs, or gallops. ABDOMEN: Soft, nontender, nondistended with positive bowel sounds. No evidence of hepatosplenomegaly. Currently no rebound or guarding noted. EXTREMITIES: Negative for clubbing, cyanosis, or edema. RECTAL/GENITAL: Not performed. NEUROLOGICAL: Cranial nerves II through XII are grossly intact without focal deficits. Motor strength is 5/5 bilaterally. Deep tendon reflexes are 2+, plantar. Assessment/Plan Assessment/Plan ASSESSMENT: This is an 79-year-old female. 1. Generalized weakness. 2. Severe anemia. 3. Chronic atrial fibrillation. 4. Polycythemia vera. 5. History of cerebrovascular accident/transient ischemic attack. 6. Obstructive sleep apnea. 7. Coronary artery disease. 8. Hypercholesterolemia. 9. Congestive heart failure. 10. History of sick sinus syndrome. 11. History of right hemothorax. TREATMENT: 1. Generalized weakness. This is probably secondary to severe anemia as below. 2. Severe anemia. Reason for anemia is unknown. Differential includes gastrointestinal hemorrhage versus worsening polycythemia vera and bone marrow suppression. The patient is S/P transfusion 4 units of packed RBCs. Follow Hgb. A GI consultation has been obtained with Dr Lentz. 3. Polycythemia vera, as above. 4. Chronic atrial fibrillation/coronary artery disease. A cardiology consultation has been obtained with Dr. Freitas. 5. Sick sinus syndrome. The patient is status post pacemaker implantation. Await pacemaker interrogation 6. Hypercholesterolemia. 7. History of congestive heart failure. 8. History of right hemothorax, status post VATS procedure. Roshan Edwards MD Sep 22, 2019 17:55
[2019-09-22] MEDS ORDERED: TYLENOL EXTRA500 MG ORAL (19:41)
[2019-09-22] MEDS ORDERED: GABAPENTIN400 MG ORAL (19:41)
[2019-09-22] MEDS ORDERED: CALMOSEPTINE O3.5 G1 TP (19:41)
[2019-09-22] MEDS ORDERED: VITAMIN A & D113 GM TP (19:41)
--- NOTE | 2019-09-22 19:41 | NUR ---
NURSE HAND-OFF REPORT: Important Events on Shift: Patient Status: Diet: Pending Orders: Pending Results/Labs: Pending MD notification: Latest Vital Signs: Temperature 98.1 , Pulse 61 , B/P 118 /59 , Respiratory Rate 18 , O2 SAT 100 , Room Air, O2 Flow Rate 2.0 . Vital Sign Comment: EKG Rhythm: A-Paced Rhythm change?: N MD Notified?: - MD Response: Latest Yepez Fall Score: 45 Fall Risk: High Risk Safety Measures: Call light Within Reach, Bed Alarm Zone 1, Side Rails Side Rails x1, Bed position Low and Locked. Fall Precautions: Report given to . Pt is stable, no stress noted. endorsed plan of care.[facility] NPO for abd US and F/U OB.
--- NOTE | 2019-09-22 19:48 | NUR ---
NURSE NOTES: Report received from Theodora ROTH. Patient is sleeping comfortably in bed. Patient A/O x 4. No distress noted. No reports of pain. IV site patent and intact. No erythema or bleeding noted. Bed in lowest position, brakes engaged, siderails up x3, and call lights within reach. Patient educated to call for assistance before attempting to use bedside commode. Will continue plan of care.
[2019-09-22 20:00] VITALS: BP 120/71
[2019-09-23] VITALS: BP 112/67
--- NOTE | 2019-09-23 03:44 | NUR ---
NURSE NOTES: Patient is sleeping comfortably in bed. No distress noted. Will continue to monitor.
[2019-09-23 04:00] VITALS: BP 91/44
[2019-09-23 06:09] LABS: BASOPHILS % (AUTO) 4.7 % (0.0-2.0); EOSINOPHILS % (AUTO) 0.7 % (0.0-3.0); HEMATOCRIT 26.5 % (37.0-47.0); HEMOGLOBIN 9.1 G/DL (12.0-16.0); LYMPHOCYTES % (AUTO) 11.7 % (20.0-45.0); MEAN CORPUSCULAR VOLUME 86 FL (80-99); MONOCYTES % (AUTO) 5.2 % (1.0-10.0); NEUTROPHILS % (AUTO) 77.8 % (45.0-75.0); PLATELET COUNT 161 K/UL (150-450); RED BLOOD COUNT 3.06 M/UL (4.20-5.40); RED CELL DISTRIBUTION WIDTH 19.5 % (11.6-14.8); WHITE BLOOD COUNT 5.1 K/UL (4.8-10.8)
[2019-09-23 06:27] LABS: ALANINE AMINOTRANSFERASE 13 U/L (12-78); ALBUMIN 2.6 G/DL (3.4-5.0); ALBUMIN/GLOBULIN RATIO 0.7 (1.0-2.7); ALKALINE PHOSPHATASE 53 U/L (46-116); ANION GAP 7 mmol/L (5-15); ASPARTATE AMINO TRANSFERASE 13 U/L (15-37); BILIRUBIN,TOTAL 0.8 MG/DL (0.2-1.0); BLOOD UREA NITROGEN 20 mg/dL (7-18); CALCIUM 8.1 MG/DL (8.5-10.1); CARBON DIOXIDE 23 MMOL/L (21-32); CHLORIDE 110 MMOL/L (98-107); SODIUM 140 MMOL/L (136-145)
[2019-09-23 06:43] LABS: PHOSPHORUS 3.3 MG/DL (2.5-4.9)
--- NOTE | 2019-09-23 07:38 | NUR ---
NURSE HAND-OFF REPORT: Important Events on Shift:[none] Patient Status: [sable] Diet: [NPO] Pending Orders: [none] Pending Results/Labs:[none] Pending MD notification:[none] Latest Vital Signs: Temperature 97.9 , Pulse 60 , B/P 91 /44 , Respiratory Rate 16 , O2 SAT 97 , Room Air, O2 Flow Rate 2.0 . Vital Sign Comment: [] EKG Rhythm: A-Paced Rhythm change?: N MD Notified?: - MD Response: Latest Yepez Fall Score: 45 Fall Risk: High Risk Safety Measures: Call light Within Reach, Bed Alarm Zone 2, Side Rails Side Rails x3, Bed position Low and Locked. Fall Precautions: Report given to [Sonia ROTH].
--- NOTE | 2019-09-23 07:54 | NUR ---
NURSE NOTES: Received report from IRA Alfredo. Observed pt sleeping comfortably, no s/sx of acute distress, breathing even and unlabored in 2L NC. Bed low and locked, call light within reach. Will continue plan of care.
[2019-09-23 08:00] VITALS: BP 110/56
[2019-09-23] MEDS: Amiodarone 200mg tab ORAL SCH ×2 (09:00→09:16)
[2019-09-23] MEDS: Metoprolol Tartrate 50mg tab ORAL SCH ×2 (09:00→21:33)
[2019-09-23] MEDS: Digoxin 0.125mg tab ORAL SCH ×2 (09:00→09:16)
--- NOTE | 2019-09-23 09:00 | NUR ---
NURSE NOTES: Pt refused abd u/s. Explained benefits, pt still insisted to refuse the procedure. Pt refused AM PO meds as well.
[2019-09-23] MEDS: Pantoprazole Inj IVP SCH ×2 (09:16→21:34)
--- NOTE | 2019-09-23 11:00 | Internal Med Progress Note ---
Subjective Date of Service: Sep 23, 2019 Physician Name Roshan Edwards Attending Physician Antonio Adrian MD Current Medications Medications (Trade) Dose Ordered Sig/Escobar Route PRN Reason Start Time Stop Time Status Last Admin Dose Admin Acetaminophen (Tylenol) 650 mg Q4H PRN ORAL T>100.5 09/21/19 19:15 10/21/19 19:14 Amiodarone HCl (Cordarone) 200 mg DAILY ORAL 09/22/19 09:00 12/21/19 08:59 09/22/19 09:37 Digoxin (Lanoxin) 0.125 mg DAILY ORAL 09/23/19 09:00 12/22/19 08:59 Gabapentin (Neurontin) 300 mg THREE TIMES A DAY ORAL 09/22/19 09:00 10/22/19 08:59 09/22/19 17:18 Metoprolol Tartrate (Lopressor) 50 mg EVERY 12 HOURS ORAL 09/21/19 21:00 12/20/19 20:59 09/22/19 21:42 Ondansetron HCl (Zofran) 4 mg Q6H PRN IVP Nausea & Vomiting 09/21/19 19:15 10/21/19 19:14 Pantoprazole (Protonix) 40 mg EVERY 12 HOURS IVP 09/22/19 13:45 10/22/19 13:44 09/23/19 09:16 Polyethylene Glycol (Miralax) 238 gm ONCE ORAL 09/23/19 14:00 09/23/19 18:00 Zolpidem Tartrate (Ambien) 5 mg HSPRN PRN ORAL Insomnia 09/21/19 19:15 09/28/19 19:14 Allergies: Coded Allergies: No Known Allergies (Unverified , 04/24/18) ROS Limited/Unobtainable: No Constitutional: Reports: no symptoms HEENT: Reports: no symptoms Cardiovascular: Reports: no symptoms Respiratory: Reports: no symptoms Gastrointestinal/Abdominal: Reports: no symptoms Genitourinary: Reports: no symptoms Neurologic/Psychiatric: Reports: no symptoms Subjective 79 YO F admitted with generalized weakness. Now severe anemia. Cover for Int med-Dr Adrian. Objective Last Vital Signs Date Time Temp Pulse Resp B/P (MAP) Pulse Ox O2 Delivery O2 Flow Rate FiO2 09/23/19 09:00 62 110/56 09/23/19 08:00 98.1 20 98 8/11/20 21:00 Room Air 09/22/19 16:00 2.0 28 Laboratory Tests Test 09/23/19 05:40 White Blood Count 5.1 K/UL (4.8-10.8) Red Blood Count 3.06 M/UL (4.20-5.40) L Hemoglobin 9.1 G/DL (12.0-16.0) #L Hematocrit 26.5 % (37.0-47.0) #L Mean Corpuscular Volume 86 FL (80-99) # Mean Corpuscular Hemoglobin 29.6 PG (27.0-31.0) Mean Corpuscular Hemoglobin Concent 34.3 G/DL (32.0-36.0) Red Cell Distribution Width 19.5 % (11.6-14.8) H Platelet Count 161 K/UL (150-450) Mean Platelet Volume 13.5 FL (6.5-10.1) H Neutrophils (%) (Auto) 77.8 % (45.0-75.0) H Lymphocytes (%) (Auto) 11.7 % (20.0-45.0) L Monocytes (%) (Auto) 5.2 % (1.0-10.0) Eosinophils (%) (Auto) 0.7 % (0.0-3.0) Basophils (%) (Auto) 4.7 % (0.0-2.0) H Erythrocyte Sedimentation Rate 76 MM/HR (0-30) H Reticulocyte Count 0.7 % (0.5-2.0) Sodium Level 140 MMOL/L (136-145) Potassium Level 4.0 MMOL/L (3.5-5.1) Chloride Level 110 MMOL/L (98-107) H Carbon Dioxide Level 23 MMOL/L (21-32) Anion Gap 7 mmol/L (5-15) Blood Urea Nitrogen 20 mg/dL (7-18) H Creatinine 1.0 MG/DL (0.55-1.30) Estimat Glomerular Filtration Rate 53.2 mL/min (>60) Glucose Level 91 MG/DL (74-106) Calcium Level 8.1 MG/DL (8.5-10.1) L Phosphorus Level 3.3 MG/DL (2.5-4.9) Magnesium Level 2.0 MG/DL (1.8-2.4) Total Bilirubin 0.8 MG/DL (0.2-1.0) Aspartate Amino Transf (AST/SGOT) 13 U/L (15-37) L Alanine Aminotransferase (ALT/SGPT) 13 U/L (12-78) Alkaline Phosphatase 53 U/L (46-116) Lactate Dehydrogenase 654 U/L (81-234) H Pro-B-Type Natriuretic Peptide 5109 pg/mL (0-125) H Total Protein 6.1 G/DL (6.4-8.2) L Albumin 2.6 G/DL (3.4-5.0) L Globulin 3.5 g/dL Albumin/Globulin Ratio 0.7 (1.0-2.7) L Microbiology Date/Time Source Procedure Growth Status 09/21/19 14:37 Blood Peripheral Blood Culture - Preliminary NO GROWTH AFTER 24 HOURS Resulted 09/21/19 15:23 Nasopharynx SARS-CoV-2 RdRp Gene Assay - Final Complete 09/21/19 15:20 Nasal Nares MRSA Culture - Final Staphylococcus Aureus - Mrsa Complete 09/21/19 15:20 Urine,Clean Catch Urine Culture - Preliminary Mixed Gram Positive Organism Resulted 09/21/19 15:20 Rectum - Final NO CARBAPENEM-RESISTANT ENTEROBACTERI... Complete 09/21/19 15:20 Rectum VRE Culture - Final NO VANCOMYCIN RESISTANT ENTEROCOCCUS ... Complete Intake and Output 09/22/19 09/23/19 19:00 07:00 Intake Total 300 ml 120 ml Balance 300 ml 120 ml Intake Oral 300 ml 120 ml # Voids 3 2 # Bowel Movements 5 Objective PHYSICAL EXAMINATION: GENERAL: The patient is a well-developed, well-nourished female, in no apparent distress. HEENT: Eyes, pupils equal and responsive to light and accommodation. Extraocular movements are intact. NECK: Supple without lymphadenopathy. CHEST: Lungs are clear to auscultation bilaterally without wheezes or rales. CARDIOVASCULAR: Regular rate. S1-S2 are normal without murmurs, rubs, or gallops. ABDOMEN: Soft, nontender, nondistended with positive bowel sounds. No evidence of hepatosplenomegaly. Currently no rebound or guarding noted. EXTREMITIES: Negative for clubbing, cyanosis, or edema. RECTAL/GENITAL: Not performed. NEUROLOGICAL: Cranial nerves II through XII are grossly intact without focal deficits. Motor strength is 5/5 bilaterally. Deep tendon reflexes are 2+, plantar. Assessment/Plan Assessment/Plan ASSESSMENT: This is an 79-year-old female. 1. Generalized weakness. 2. Severe anemia. 3. Chronic atrial fibrillation. 4. Polycythemia vera. 5. History of cerebrovascular accident/transient ischemic attack. 6. Obstructive sleep apnea. 7. Coronary artery disease. 8. Hypercholesterolemia. 9. Congestive heart failure. 10. History of sick sinus syndrome. 11. History of right hemothorax. TREATMENT: 1. Generalized weakness. This is probably secondary to severe anemia as below. 2. Severe anemia. Reason for anemia is unknown. Differential includes gastrointestinal hemorrhage versus worsening polycythemia vera and bone marrow suppression. The patient is S/P transfusion 4 units of packed RBCs. Follow Hgb. A GI consultation has been obtained with Dr Kaiser. 3. Polycythemia vera, as above. 4. Chronic atrial fibrillation/coronary artery disease. A cardiology consultation has been obtained with Dr. Freitas. 5. Sick sinus syndrome. The patient is status post pacemaker implantation. Await pacemaker interrogation 6. Hypercholesterolemia. 7. History of congestive heart failure. 8. History of right hemothorax, status post VATS procedure. 9. Await colonoscopy 10. Patient Refused ultrasound Roshan Edwards MD Sep 23, 2019 11:00
[2019-09-23 12:00] VITALS: BP 111/57
--- NOTE | 2019-09-23 12:55 | NUR ---
CASE MANAGEMENT: REVIEW 79 YEAR OLD FEMALE SENT BY PCP CC: GENERALIZED WEAKNESS . POOR APPETITE SI: SEVERE ANEMIA T 98.1 HR 76 RR 20 BP 102/52 99% ROOM AIR H/H 4.8/15.0 BNP 5109 IS: NS IVF BOLUS X1 CEFTRIAXONE IV X1 PROTONIX IV X1 TRANSFUSE PRBC 4 UNITS PATIENT ADMITTED TO TELEMETRY UNIT 09/21/2019 DCP: PATIENT IS FROM HOME
[2019-09-23] MEDS ORDERED: Epoetin Alfa-EPBX (NON ESRD) 2000 units/ml vial SUBQ SCH (13:00)
[2019-09-23] MEDS ORDERED: Vitamin B12 1000mcg/ml Inj IM SCH (13:00)
--- NOTE | 2019-09-23 13:00 | Pulmonology Progress Note ---
Subjective ROS Limited/Unobtainable: Yes Constitutional: Reports: no symptoms Allergies: Coded Allergies: No Known Allergies (Unverified , 04/24/18) Objective Last 24 Hour Vital Signs Date Time Temp Pulse Resp B/P (MAP) Pulse Ox O2 Delivery O2 Flow Rate FiO2 09/23/19 12:00 98.1 63 20 111/57 (75) 96 09/23/19 09:00 62 110/56 09/23/19 09:00 Room Air 09/23/19 08:00 98.1 62 20 110/56 (74) 98 09/23/19 07:26 60 09/23/19 04:00 97.9 60 16 91/44 (60) 97 09/23/19 04:00 60 09/23/19 00:00 99.5 95 16 112/67 (82) 96 09/23/19 00:00 90 09/22/19 21:42 66 120/71 09/22/19 21:00 Room Air 09/22/19 20:00 61 09/22/19 20:00 97.6 66 18 120/71 (87) 95 09/22/19 16:00 100 Nasal Cannula 2.0 28 09/22/19 16:00 98.1 61 18 118/59 (78) 87 09/22/19 15:37 57 Intake and Output 09/22/19 09/23/19 19:00 07:00 Intake Total 300 ml 120 ml Balance 300 ml 120 ml Intake Oral 300 ml 120 ml # Voids 3 2 # Bowel Movements 5 General Appearance: cachetic HEENT: normocephalic, atraumatic Respiratory: chest wall non-tender, lungs clear Cardiovascular: normal peripheral pulses, normal rate Abdomen: normal bowel sounds, soft, non tender, no organomegaly Genitourinary: normal external genitalia Skin: no rash Neurologic: soda clerk II-XII grossly normal Microbiology Date/Time Source Procedure Growth Status 09/21/19 14:37 Blood Peripheral Blood Culture - Preliminary NO GROWTH AFTER 24 HOURS Resulted 09/21/19 15:23 Nasopharynx SARS-CoV-2 RdRp Gene Assay - Final Complete 09/21/19 15:20 Nasal Nares MRSA Culture - Final Staphylococcus Aureus - Mrsa Complete 09/21/19 15:20 Urine,Clean Catch Urine Culture - Preliminary Mixed Gram Positive Organism Resulted 09/21/19 15:20 Rectum - Final NO CARBAPENEM-RESISTANT ENTEROBACTERI... Complete 09/21/19 15:20 Rectum VRE Culture - Final NO VANCOMYCIN RESISTANT ENTEROCOCCUS ... Complete Laboratory Tests 09/23/19 05:40: White Blood Count 5.1, Red Blood Count 3.06L, Hemoglobin 9.1#L, Hematocrit 26.5# L, Mean Corpuscular Volume 86#, Mean Corpuscular Hemoglobin 29.6, Mean Corpuscular Hemoglobin Concent 34.3, Red Cell Distribution Width 19.5H, Platelet Count 161, Mean Platelet Volume 13.5H, Neutrophils (%) (Auto) 77.8H, Lymphocytes (%) (Auto) 11.7L, Monocytes (%) (Auto) 5.2, Eosinophils (%) (Auto) 0.7, Basophils (%) (Auto) 4.7H, Erythrocyte Sedimentation Rate 76H, Reticulocyte Count 0.7, Sodium Level 140, Potassium Level 4.0, Chloride Level 110H, Carbon Dioxide Level 23, Anion Gap 7, Blood Urea Nitrogen 20H, Creatinine 1.0, Estimat Glomerular Filtration Rate 53.2, Glucose Level 91, Calcium Level 8.1L, Phosphorus Level 3.3, Magnesium Level 2.0, Total Bilirubin 0.8, Aspartate Amino Transf (AST/SGOT) 13L, Alanine Aminotransferase (ALT/SGPT) 13, Alkaline Phosphatase 53, Lactate Dehydrogenase 654H, Pro-B-Type Natriuretic Peptide 5109H , Total Protein 6.1L, Albumin 2.6L, Globulin 3.5, Albumin/Globulin Ratio 0.7L Current Medications Medications (Trade) Dose Ordered Sig/Escobar Route PRN Reason Start Time Stop Time Status Last Admin Dose Admin Acetaminophen (Tylenol) 650 mg Q4H PRN ORAL T>100.5 09/21/19 19:15 10/21/19 19:14 Amiodarone HCl (Cordarone) 200 mg DAILY ORAL 09/22/19 09:00 12/21/19 08:59 09/22/19 09:37 Digoxin (Lanoxin) 0.125 mg DAILY ORAL 09/23/19 09:00 12/22/19 08:59 Gabapentin (Neurontin) 300 mg THREE TIMES A DAY ORAL 09/22/19 09:00 10/22/19 08:59 09/22/19 17:18 Metoprolol Tartrate (Lopressor) 50 mg EVERY 12 HOURS ORAL 09/21/19 21:00 12/20/19 20:59 09/22/19 21:42 Ondansetron HCl (Zofran) 4 mg Q6H PRN IVP Nausea & Vomiting 09/21/19 19:15 10/21/19 19:14 Pantoprazole (Protonix) 40 mg EVERY 12 HOURS IVP 09/22/19 13:45 10/22/19 13:44 09/23/19 09:16 Polyethylene Glycol (Miralax) 238 gm ONCE ORAL 09/23/19 14:00 09/23/19 18:00 Zolpidem Tartrate (Ambien) 5 mg HSPRN PRN ORAL Insomnia 09/21/19 19:15 09/28/19 19:14 Assessment/Plan Problems: (1) Anemia (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 symptomatic treatment trial of Kelly Flores MD Sep 23, 2019 13:00
--- NOTE | 2019-09-23 13:30 | Consultation ---
DATE OF CONSULTATION: 09/23/2019 GASTROENTEROLOGY CONSULTATION CONSULTING PHYSICIAN: Blair Kaiser MD. REFERRING PHYSICIAN: Antonio Adrian MD. REASON FOR CONSULTATION: Evaluation for anemia. PAST MEDICAL HISTORY: Significant for: 1. History of chronic anemia. 2. Polycythemia rubra vera. 3. Atrial fibrillation. 4. Hypertension. 5. Obstructive sleep apnea. 6. Coronary artery disease. 7. History of AR in the past. 8. Hypercholesteremia. 9. CHF. 10. UTI/pyelonephritis. PAST SURGICAL HISTORY: The patient had hysterectomy, right shoulder surgery, pacemaker placement. ALLERGIES: No known drug allergies. MEDICATIONS: Please see medication reconciliation list. SOCIAL HISTORY: She has no history of tobacco, alcohol, or drug abuse. FAMILY HISTORY: Noncontributory. REVIEW OF SYSTEMS: Limited. PHYSICAL EXAMINATION: VITAL SIGNS: Temperature 98.1, pulse 60, respirations 20, blood pressure 110/56. HEENT: Normocephalic and atraumatic. Mild pale conjunctivae. NECK: Supple. No evidence of obvious lymphadenopathy. CARDIOVASCULAR: Regular rate and rhythm. Plus S1 and S2. There is a soft murmur in left sternal border. LUNGS: Clear to auscultation bilaterally. ABDOMEN: Positive bowel sounds. Soft and nontender. No rebound. No guarding. No peritoneal sign. EXTREMITIES: No cyanosis. No clubbing. No edema. LABORATORY DATA: White count 6, hemoglobin went as low as 4.8, hematocrit of 15, platelet count of 209,000. ASSESSMENT AND PLAN: This is an 79-year-old female with profound anemia. The patient's GI workup included for last two years had two endoscopies, last one in July 2018, which was negative for obvious GI bleeding. Stool OBs on prior admissions had been negative, but the patient never had hemoglobin down to 4.8, usually average was lowest 7. Never had a colonoscopy per our records. The patient is a poor historian, so I cannot get any history from her. I called the family and left a message, has not got the call back regarding prior colonoscopies. But given this profound anemia, given no recent colonoscopy at least in this hospital, the patient at least would need a colonoscopy to rule out lower GI causes for anemia. Plan to prep for colonoscopy and obtain consent from family for colonoscopy tomorrow. I want to thank Dr. Antonio Adrian for this kind referral. Blair Kaiser M.D. DR: EDUIN JOB#: [id number] CC:
--- NOTE | 2019-09-23 13:35 | NUR ---
NURSE NOTES: Pt refused 1300 PO and IM med. Explained risk and benefits of taking meds, pt still refused to take them.
[2019-09-23] MEDS ORDERED: Polyethylene Glycol 238gm bottle ORAL SCH (14:00)
--- NOTE | 2019-09-23 14:20 | Cardiac Electrophysiology PN ---
Assessment/Plan Assessment/Plan 1. Weakness due to profound anemia, hemoglobin of 4.8. The patient already receiving four units of blood transfusion. The patient has been kept off anticoagulation in view of the patient's history of severe anemia requiring multiple blood transfusions in the past. GI workup for last two years had two endoscopies, last one in July 2018, which was negative for obvious GI bleeding. Stool OBs on prior admissions had been negative. COlonoscopy per Dr Kaiser pending 2. Status post [employer] pacemaker implantation by me in 2010 and generator change by me in 2018 with normal function by interrogation on last visit. 3. Paroxysmal atrial fibrillation with rapid ventricular response and atrially paced rhythm, on amiodarone 200 mg daily, metoprolol 50 mg b.i.d., and digoxin 0.125 mg daily, will be kept off anticoagulation. 4. Hypertension, on metoprolol. 5. Urinary tract infection. 6. History of polycythemia vera. 7. Severe pulmonary hypertension with PA pressure of 71. 8. Hemothorax status post VATS by Dr. Malik in 07/2019. RILEY RN. Subjective Subjective Refused meds and abdominal US. In SR Objective Last 24 Hour Vital Signs Date Time Temp Pulse Resp B/P (MAP) Pulse Ox O2 Delivery O2 Flow Rate FiO2 09/23/19 12:00 98.1 63 20 111/57 (75) 96 09/23/19 11:31 61 09/23/19 09:00 62 110/56 09/23/19 09:00 Room Air 09/23/19 08:00 98.1 62 20 110/56 (74) 98 09/23/19 07:26 60 09/23/19 04:00 97.9 60 16 91/44 (60) 97 09/23/19 04:00 60 09/23/19 00:00 99.5 95 16 112/67 (82) 96 09/23/19 00:00 90 09/22/19 21:42 66 120/71 09/22/19 21:00 Room Air 09/22/19 20:00 61 09/22/19 20:00 97.6 66 18 120/71 (87) 95 09/22/19 16:00 100 Nasal Cannula 2.0 28 09/22/19 16:00 98.1 61 18 118/59 (78) 87 09/22/19 15:37 57 Intake and Output 09/22/19 09/23/19 19:00 07:00 Intake Total 300 ml 120 ml Balance 300 ml 120 ml Intake Oral 300 ml 120 ml # Voids 3 2 # Bowel Movements 5 Laboratory Tests Test 09/23/19 05:40 White Blood Count 5.1 K/UL (4.8-10.8) Red Blood Count 3.06 M/UL (4.20-5.40) L Hemoglobin 9.1 G/DL (12.0-16.0) #L Hematocrit 26.5 % (37.0-47.0) #L Mean Corpuscular Volume 86 FL (80-99) # Mean Corpuscular Hemoglobin 29.6 PG (27.0-31.0) Mean Corpuscular Hemoglobin Concent 34.3 G/DL (32.0-36.0) Red Cell Distribution Width 19.5 % (11.6-14.8) H Platelet Count 161 K/UL (150-450) Mean Platelet Volume 13.5 FL (6.5-10.1) H Neutrophils (%) (Auto) 77.8 % (45.0-75.0) H Lymphocytes (%) (Auto) 11.7 % (20.0-45.0) L Monocytes (%) (Auto) 5.2 % (1.0-10.0) Eosinophils (%) (Auto) 0.7 % (0.0-3.0) Basophils (%) (Auto) 4.7 % (0.0-2.0) H Erythrocyte Sedimentation Rate 76 MM/HR (0-30) H Reticulocyte Count 0.7 % (0.5-2.0) Sodium Level 140 MMOL/L (136-145) Potassium Level 4.0 MMOL/L (3.5-5.1) Chloride Level 110 MMOL/L (98-107) H Carbon Dioxide Level 23 MMOL/L (21-32) Anion Gap 7 mmol/L (5-15) Blood Urea Nitrogen 20 mg/dL (7-18) H Creatinine 1.0 MG/DL (0.55-1.30) Estimat Glomerular Filtration Rate 53.2 mL/min (>60) Glucose Level 91 MG/DL (74-106) Calcium Level 8.1 MG/DL (8.5-10.1) L Phosphorus Level 3.3 MG/DL (2.5-4.9) Magnesium Level 2.0 MG/DL (1.8-2.4) Total Bilirubin 0.8 MG/DL (0.2-1.0) Aspartate Amino Transf (AST/SGOT) 13 U/L (15-37) L Alanine Aminotransferase (ALT/SGPT) 13 U/L (12-78) Alkaline Phosphatase 53 U/L (46-116) Lactate Dehydrogenase 654 U/L (81-234) H Pro-B-Type Natriuretic Peptide 5109 pg/mL (0-125) H Total Protein 6.1 G/DL (6.4-8.2) L Albumin 2.6 G/DL (3.4-5.0) L Globulin 3.5 g/dL Albumin/Globulin Ratio 0.7 (1.0-2.7) L Microbiology Date/Time Source Procedure Growth Status 09/21/19 14:37 Blood Peripheral Blood Culture - Preliminary NO GROWTH AFTER 24 HOURS Resulted 09/21/19 15:23 Nasopharynx SARS-CoV-2 RdRp Gene Assay - Final Complete 09/21/19 15:20 Nasal Nares MRSA Culture - Final Staphylococcus Aureus - Mrsa Complete 09/21/19 15:20 Urine,Clean Catch Urine Culture - Preliminary Mixed Gram Positive Organism Resulted 09/21/19 15:20 Rectum - Final NO CARBAPENEM-RESISTANT ENTEROBACTERI... Complete 09/21/19 15:20 Rectum VRE Culture - Final NO VANCOMYCIN RESISTANT ENTEROCOCCUS ... Complete Objective HEAD AND NECK: No JVD or carotid bruits. Sclerae are very pale. LUNGS: Clear. CARDIOVASCULAR: Shows regular S1 and S2 with no gallop. Pacemaker in the left subclavian, healed. ABDOMEN: Soft. EXTREMITIES: No pitting edema. River Freitas MD Sep 23, 2019 14:20
--- NOTE | 2019-09-23 14:30 | NUR ---
NURSE NOTES: Spoke to the family member regarding the med and procedure refusal of the pt. Ask if they can talk to the pt to see if pt will listen to them. Pt still refused and said she wants to talk to MD. made aware. Per MD, he already explained the procedure to the pt this AM. Per , he tried to call fam member but no answer.
--- NOTE | 2019-09-23 15:00 | NUR ---
NURSE NOTES: Pt refused the prep for colonoscopy. Pt does not want to sign the consent. Per pt, she just want regular food. Dr Kaiser made aware. Per MD, cancel the procedure and change the diet to regular.
--- NOTE | 2019-09-23 15:30 | NUR ---
NURSE NOTES: Offered regular food to the pt (sandwich, fruit cup, soda, juice). Pt refused and stated that she wants breakfast.
--- NOTE | 2019-09-23 15:43 | NUR ---
NURSE NOTES: Received a call from the granddaughter. Accd to her, her dad (who is NOK), told her to call. Granddaughter was insisting to why not get the consent from her dad instead ([email or web address]). I explained to the granddaughter that pt is still alert, though with episodes of forgetfulness/confusion. Pt still have the right to refuse and that healthcare professionals cannot force her to do the procedure against her will. Addendum: 09/23/19 at 1554 by Sonia Haddad RN Explained to the granddaughter that the pt refused to take the prep for colonoscopy (miralax).
[2019-09-23 16:00] VITALS: BP 115/62
--- NOTE | 2019-09-23 18:48 | NUR ---
NURSE NOTES: Pt able to finish 70% of her regular dinner. Pt took her 1800 med.
--- NOTE | 2019-09-23 19:41 | NUR ---
NURSE HAND-OFF REPORT: Important Events on Shift: Pt refused abd u/s, refused AM and afternoon meds, refused to sign consent for colonoscopy. Took 1800 med after eating regular dinner. Patient Status: stable Diet: Regular Pending Orders: Transfer to / Pending Results/Labs: labs tomorrow Pending MD notification: Latest Vital Signs: Temperature 97.5 , Pulse 62 , B/P 115 /62 , Respiratory Rate 20 , O2 SAT 94 , Room Air, O2 Flow Rate 2.0 . Vital Sign Comment: EKG Rhythm: A-Paced Rhythm change?: N MD Notified?: - MD Response: Latest Yepez Fall Score: 45 Fall Risk: High Risk Safety Measures: Call light Within Reach, Bed Alarm Zone 2, Side Rails Side Rails x3, Bed position Low and Locked. Fall Precautions: Report given to IRA Canales
--- NOTE | 2019-09-23 19:42 | NUR ---
NURSE NOTES: Received report from IRA Moss. Patient is asleep, alert and oriented x 2. On regular diet. With oxygen via nasal cannula at 2 Lpm, saturating 95% with no shortness of breath reported. bus driver/monitor is in place, shows A-paced. IV site is on right forearm g-20 saline lock that is patent and intact. Patient is fall precaution, bed alarm is on. Safety measures are in place, bed in lowest and locked position, call light and bedside table within reach, instructed to call for any assistance needed. Will continue plan of care.
[2019-09-23 20:00] VITALS: BP 115/59
[2019-09-23] MEDS ORDERED: Epoetin Alfa-EPBX (NON ESRD)4000 units/ml vial SUBQ SCH (21:00)
--- NOTE | 2019-09-23 23:37 | NUR ---
TRANSFER TO FLOOR: Patient transferred to room 409-1, per bed. Report given to IRA Ruiz. Belongings list checked with receiving nurse. Patient's daughter "Eden" informed of room transfer order and patient's new room number. RN made aware of procedures tomorrow, such as whole abdomen ultrasound and CT of the chest, abdomen, and pelvis with and without contrast. Plan of care endorsed. At this time patient is in stable condition, without complaints made.
[2019-09-23] MEDS ORDERED: Epoetin Alfa-EPBX (NON ESRD)4000 units/ml vial SUBQ ONE (23:45)
[2019-09-24] VITALS: BP 109/55
--- NOTE | 2019-09-24 00:14 | NUR ---
NURSE NOTES: Received patient alert and oriented x3, on O2@ 2LPM via nasal cannula saturating 96%. With IV access on right forearm. Belongings checked. Instructed patient to use call light for help. Call light in reach. Bed in lowest, lock engaged and alarm on. Will monitor pt.
--- NOTE | 2019-09-24 00:17 | NUR ---
NURSE NOTES: Spoke with IRA Pinon from tele regarding unverified Epoeitin on emar. She said no need to give it because it was given prior patient's transfer.
[2019-09-24] MEDS ORDERED: Zolpidem 5mg tab ORAL PRN (01:04)
--- NOTE | 2019-09-24 02:47 | NUR ---
NURSE NOTES: Received report from IRA Ruiz. Pt sleeping in bed, on NC 2l. IV site intact and patent. Commode at bedside. Pt is on NPO for US abd and CT chest, abd, pelvic. Need to collect OB stool. Isolation maintained. Bed locked, lowest position, alarm on, call light within reach. Will continue to monitor.
--- NOTE | 2019-09-24 02:54 | NUR ---
HAND-OFF: Important Events on Shift: Received transfer from Telemetry unit Patient Status: [] Diet: NPO post MN Pending Orders: OB Stool Collection 09/23, 09/24, US abd complete, CT Chest Abd & Pelv w/ & w/o contrast Pending Results/Labs:[] Pending MD notification:[] Latest Vital Signs: Temperature 97.7 , Pulse 61 , B/P 109 /55 , Respiratory Rate 18 , O2 SAT 96 , Nasal Cannula, O2 Flow Rate 2.0 . Vital Sign Comment: [] Latest Yepez Fall Score: 60 Fall Risk: High Risk Safety Measures: Call light Within Reach, Bed Alarm Zone 1, Side Rails Side Rails x2, Bed position Low and Locked. Fall Precautions: Yellow Socks Yellow Gown Door Sign Patient Fall Education Report given IRA Marquez
[2019-09-24 04:00] VITALS: BP 111/64
[2019-09-24 06:10] LABS: ANION GAP 7 mmol/L (5-15); BLOOD UREA NITROGEN 20 mg/dL (7-18); CALCIUM 8.5 MG/DL (8.5-10.1); CARBON DIOXIDE 24 MMOL/L (21-32); CHLORIDE 107 MMOL/L (98-107); CREATININE 0.8 MG/DL (0.55-1.30); POTASSIUM 4.1 MMOL/L (3.5-5.1); SODIUM 138 MMOL/L (136-145)
[2019-09-24 06:18] LABS: BASOPHILS % (AUTO) 3.8 % (0.0-2.0); EOSINOPHILS % (AUTO) 0.8 % (0.0-3.0); HEMATOCRIT 28.2 % (37.0-47.0); HEMOGLOBIN 9.1 G/DL (12.0-16.0); LYMPHOCYTES % (AUTO) 14.6 % (20.0-45.0); MEAN CORPUSCULAR VOLUME 89 FL (80-99); MONOCYTES % (AUTO) 3.1 % (1.0-10.0); NEUTROPHILS % (AUTO) 77.8 % (45.0-75.0); PLATELET COUNT 152 K/UL (150-450); RED BLOOD COUNT 3.17 M/UL (4.20-5.40); RED CELL DISTRIBUTION WIDTH 21.2 % (11.6-14.8); WHITE BLOOD COUNT 5.4 K/UL (4.8-10.8)
[2019-09-24 06:19] LABS: INR 1.2 (0.9-1.1)
--- NOTE | 2019-09-24 06:38 | NUR ---
NURSE HAND-OFF: Important Events on Shift:high fall risk, transferred from tele Patient Status: stable Diet: NPO Pending Orders: OB stool collect on 09/23,09/24, CT chest, abd, pelvic, US abd Pending Results/Labs:OB stool Pending MD notification:N Latest Vital Signs: Temperature 98.1 , Pulse 65 , B/P 111 /64 , Respiratory Rate 18 , O2 SAT 94 , Nasal Cannula, O2 Flow Rate 2.0 . Vital Sign Comment: Latest Yepez Fall Score: 60 Fall Risk: High Risk Safety Measures: Call light Within Reach, Bed Alarm Zone 1, Side Rails Side Rails x2, Bed position Low and Locked. Fall Precautions: Yellow Socks Yellow Gown Door Sign Patient Fall Education Addendum: 09/24/19 at 0725 by CYNTHIA LILLY RN RN HAND-OFF: Report given to IRA Josue.
[2019-09-24] MEDS ORDERED: Atropine Inj 1mg/10ml Syr IV PRN (07:15)
[2019-09-24] MEDS ORDERED: DiphenhydrAMINE 50mg/ml Inj IVP PRN (07:15)
[2019-09-24] MEDS ORDERED: Midazolam 2mg/2ml Inj IVP PRN (07:15)
[2019-09-24] MEDS ORDERED: fentaNYL 100 mcg/2 mL IV PRN (07:15)
--- NOTE | 2019-09-24 07:39 | NUR ---
NURSE NOTES: Report received from Alma ROTH. Patient seen on rounds, AxOx3, not in distress, no c/o pain. NC @ 2lpm. Patient is NPO post midnight for anticipated procedure today, reinforced education and pt verbalized understanding. PIV on right forearm patent and intact. Nurse reports still for stool OB collection x2. Bed low and locked, siderails up x2, call light placed within reach and instructed to call nurse for assistance. Will continue to monitor.
[2019-09-24 08:00] VITALS: BP 102/57
[2019-09-24] MEDS: Pantoprazole Inj IVP SCH ×2 (08:59→20:54)
[2019-09-24] MEDS: Metoprolol Tartrate 50mg tab ORAL SCH ×3 (09:00→20:54)
[2019-09-24] MEDS: Digoxin 0.125mg tab ORAL SCH (09:01)
[2019-09-24] MEDS: Amiodarone 200mg tab ORAL SCH (09:02)
--- NOTE | 2019-09-24 09:11 | NUR ---
Reservations Clerk: Addendum: 09/24/19 at 0912 by Liat Vee RN NURSE NOTES: Dr. Freitas saw pt on rounds, clarified hold parameters for Metoprolol. says to hold if SBP<100. Noted and carried out.
--- NOTE | 2019-09-24 10:03 | Cardiac Electrophysiology PN ---
Assessment/Plan Assessment/Plan 1. Weakness due to profound anemia, hemoglobin of 4.8. S/P four units of blood transfusion. GI workup for last two years had two endoscopies. Last one in July 2018, which was negative for obvious GI bleeding. Stool OBs on prior admissions had been negative. ABD US, Cets CT and Colonoscopy per Dr Kaiser pending 2. Status post [employer] pacemaker implantation by me in 2010 and generator change by me in 2018 with normal function by interrogation on last visit. 3. Paroxysmal atrial fibrillation with rapid ventricular response and atrially paced rhythm on amiodarone 200 mg daily, metoprolol 50 mg bid and digoxin 0.125 mg daily . Off anticoagulation for severe anemia requiring multiple blood transfusions in the past. 4. Hypertension, on metoprolol. 5. Urinary tract infection. 6. History of polycythemia vera. 7. Severe pulmonary hypertension with PA pressure of 71. 8. Hemothorax status post VATS by Dr. Malik in 07/2019. RILEY RN. Subjective Subjective NPO for Chest CT and abdominal US. Off tele now. No CP Objective Last 24 Hour Vital Signs Date Time Temp Pulse Resp B/P (MAP) Pulse Ox O2 Delivery O2 Flow Rate FiO2 09/24/19 09:10 61 102/57 09/24/19 09:01 61 09/24/19 08:00 98.5 61 18 102/57 (72) 94 09/24/19 07:25 96 Nasal Cannula 2.0 28 09/24/19 04:00 98.1 65 18 111/64 (80) 94 09/24/19 00:00 97.7 61 18 109/55 (73) 96 09/23/19 21:33 62 115/62 09/23/19 21:00 Nasal Cannula 2.0 09/23/19 20:00 94 Nasal Cannula 2.0 28 09/23/19 20:00 97.9 61 17 115/59 (77) 96 09/23/19 16:00 97.5 62 20 115/62 (79) 94 09/23/19 15:16 63 09/23/19 12:00 98.1 63 20 111/57 (75) 96 09/23/19 11:31 61 Intake and Output 09/23/19 09/24/19 19:00 07:00 Intake Total 500 ml Balance 500 ml Intake Oral 500 ml # Voids 5 3 # Bowel Movements 1 Laboratory Tests Test 09/23/19 17:50 09/24/19 05:40 Stool Occult Blood Pending White Blood Count 5.4 K/UL (4.8-10.8) Red Blood Count 3.17 M/UL (4.20-5.40) L Hemoglobin 9.1 G/DL (12.0-16.0) L Hematocrit 28.2 % (37.0-47.0) L Mean Corpuscular Volume 89 FL (80-99) Mean Corpuscular Hemoglobin 28.7 PG (27.0-31.0) Mean Corpuscular Hemoglobin Concent 32.3 G/DL (32.0-36.0) Red Cell Distribution Width 21.2 % (11.6-14.8) H Platelet Count 152 K/UL (150-450) Mean Platelet Volume 10.8 FL (6.5-10.1) H Neutrophils (%) (Auto) 77.8 % (45.0-75.0) H Lymphocytes (%) (Auto) 14.6 % (20.0-45.0) L Monocytes (%) (Auto) 3.1 % (1.0-10.0) Eosinophils (%) (Auto) 0.8 % (0.0-3.0) Basophils (%) (Auto) 3.8 % (0.0-2.0) H Prothrombin Time 12.8 SEC (9.30-11.50) H Prothromb Time International Ratio 1.2 (0.9-1.1) H Sodium Level 138 MMOL/L (136-145) Potassium Level 4.1 MMOL/L (3.5-5.1) Chloride Level 107 MMOL/L (98-107) Carbon Dioxide Level 24 MMOL/L (21-32) Anion Gap 7 mmol/L (5-15) Blood Urea Nitrogen 20 mg/dL (7-18) H Creatinine 0.8 MG/DL (0.55-1.30) Estimat Glomerular Filtration Rate > 60 mL/min (>60) Glucose Level 95 MG/DL (74-106) Calcium Level 8.5 MG/DL (8.5-10.1) Microbiology Date/Time Source Procedure Growth Status 09/21/19 14:37 Blood Peripheral Blood Culture - Preliminary NO GROWTH AFTER 48 HOURS Resulted 09/21/19 15:23 Nasopharynx SARS-CoV-2 RdRp Gene Assay - Final Complete 09/21/19 15:20 Nasal Nares MRSA Culture - Final Staphylococcus Aureus - Mrsa Complete 09/21/19 15:20 Urine,Clean Catch Urine Culture - Final Mixed Gram Positive Organism Complete 09/21/19 15:20 Rectum - Final NO CARBAPENEM-RESISTANT ENTEROBACTERI... Complete 09/21/19 15:20 Rectum VRE Culture - Final NO VANCOMYCIN RESISTANT ENTEROCOCCUS ... Complete Objective HEAD AND NECK: No JVD or carotid bruits. Sclerae are very pale. LUNGS: Clear. CARDIOVASCULAR: Shows regular S1 and S2 with no gallop. Pacemaker in the left subclavian, healed. ABDOMEN: Soft. EXTREMITIES: No pitting edema. River Freitas MD Sep 24, 2019 10:03
--- NOTE | 2019-09-24 11:16 | General Progress Note ---
Assessment/Plan Assessment/Plan: 1. History of chronic anemia. 2. Polycythemia rubra vera. 3. Atrial fibrillation. 4. Hypertension. 5. Obstructive sleep apnea. 6. Coronary artery disease. 7. History of [place] in the past. 8. Hypercholesteremia. 9. CHF. 10. UTI/pyelonephritis. patient refused colonoscopy fu stool ob fu H&H fu abd us and CT Subjective ROS Limited/Unobtainable: Yes Allergies: Coded Allergies: No Known Allergies (Unverified , 04/24/18) Objective Last 24 Hour Vital Signs Date Time Temp Pulse Resp B/P (MAP) Pulse Ox O2 Delivery O2 Flow Rate FiO2 09/24/19 09:10 61 102/57 09/24/19 09:01 61 09/24/19 09:00 Nasal Cannula 2.0 09/24/19 08:00 98.5 61 18 102/57 (72) 94 09/24/19 07:25 96 Nasal Cannula 2.0 28 09/24/19 04:00 98.1 65 18 111/64 (80) 94 09/24/19 00:00 97.7 61 18 109/55 (73) 96 09/23/19 21:33 62 115/62 09/23/19 21:00 Nasal Cannula 2.0 09/23/19 20:00 94 Nasal Cannula 2.0 28 09/23/19 20:00 97.9 61 17 115/59 (77) 96 09/23/19 16:00 97.5 62 20 115/62 (79) 94 09/23/19 15:16 63 09/23/19 12:00 98.1 63 20 111/57 (75) 96 09/23/19 11:31 61 Intake and Output 09/23/19 09/24/19 19:00 07:00 Intake Total 500 ml Balance 500 ml Intake Oral 500 ml # Voids 5 3 # Bowel Movements 1 Laboratory Tests 09/23/19 17:50: Stool Occult Blood [Pending] 09/24/19 05:40: White Blood Count 5.4, Red Blood Count 3.17L, Hemoglobin 9.1L, Hematocrit 28.2L , Mean Corpuscular Volume 89, Mean Corpuscular Hemoglobin 28.7, Mean Corpuscular Hemoglobin Concent 32.3, Red Cell Distribution Width 21.2H, Platelet Count 152, Mean Platelet Volume 10.8H, Neutrophils (%) (Auto) 77.8H, Lymphocytes (%) (Auto) 14.6L, Monocytes (%) (Auto) 3.1, Eosinophils (%) (Auto) 0.8, Basophils (%) (Auto) 3.8H, Prothrombin Time 12.8H, Prothromb Time International Ratio 1.2H, Sodium Level 138, Potassium Level 4.1, Chloride Level 107, Carbon Dioxide Level 24, Anion Gap 7, Blood Urea Nitrogen 20H, Creatinine 0.8, Estimat Glomerular Filtration Rate > 60, Glucose Level 95, Calcium Level 8.5 Height (Feet): 5 Height (Inches): 1.00 Weight (Pounds): 116 General Appearance: no apparent distress EENT: normal ENT inspection Neck: supple Cardiovascular: normal rate Respiratory/Chest: decreased breath sounds Abdomen: normal bowel sounds, non tender, soft Extremities: non-tender Blair Kaiser MD Sep 24, 2019 11:16
--- NOTE | 2019-09-24 11:24 | NUR ---
NURSE NOTES: Patient brought down to CT scan for procedure. Vitals stable. PIV patent and intact.
--- NOTE | 2019-09-24 11:56 | NUR ---
NURSE NOTES: Pt returned from CT scan in stable condition. Followed up schedule of abdominal ultrasound, spoke with Shanice and she will see patient for procedure after 30 mins.
--- NOTE | 2019-09-24 11:59 | Pulmonology Progress Note ---
Subjective ROS Limited/Unobtainable: No Constitutional: Reports: no symptoms HEENT: Repors: no symptoms Respiratory: Reports: no symptoms Allergies: Coded Allergies: No Known Allergies (Unverified , 04/24/18) Objective Last 24 Hour Vital Signs Date Time Temp Pulse Resp B/P (MAP) Pulse Ox O2 Delivery O2 Flow Rate FiO2 09/24/19 09:10 61 102/57 09/24/19 09:01 61 09/24/19 09:00 Nasal Cannula 2.0 09/24/19 08:00 98.5 61 18 102/57 (72) 94 09/24/19 07:25 96 Nasal Cannula 2.0 28 09/24/19 04:00 98.1 65 18 111/64 (80) 94 09/24/19 00:00 97.7 61 18 109/55 (73) 96 09/23/19 21:33 62 115/62 09/23/19 21:00 Nasal Cannula 2.0 09/23/19 20:00 94 Nasal Cannula 2.0 28 09/23/19 20:00 97.9 61 17 115/59 (77) 96 09/23/19 16:00 97.5 62 20 115/62 (79) 94 09/23/19 15:16 63 09/23/19 12:00 98.1 63 20 111/57 (75) 96 Intake and Output 09/23/19 09/24/19 19:00 07:00 Intake Total 500 ml Balance 500 ml Intake Oral 500 ml # Voids 5 3 # Bowel Movements 1 General Appearance: cachetic HEENT: normocephalic, atraumatic Respiratory: chest wall non-tender, lungs clear Cardiovascular: normal peripheral pulses, normal rate Abdomen: normal bowel sounds, soft, non tender, no organomegaly Genitourinary: normal external genitalia Skin: no rash Neurologic: prospect manager II-XII grossly normal Microbiology Date/Time Source Procedure Growth Status 09/21/19 14:37 Blood Peripheral Blood Culture - Preliminary NO GROWTH AFTER 48 HOURS Resulted 09/21/19 15:23 Nasopharynx SARS-CoV-2 RdRp Gene Assay - Final Complete 09/21/19 15:20 Nasal Nares MRSA Culture - Final Staphylococcus Aureus - Mrsa Complete 09/21/19 15:20 Urine,Clean Catch Urine Culture - Final Mixed Gram Positive Organism Complete 8/10/20 15:20 Rectum - Final NO CARBAPENEM-RESISTANT ENTEROBACTERI... Complete 09/21/19 15:20 Rectum VRE Culture - Final NO VANCOMYCIN RESISTANT ENTEROCOCCUS ... Complete Laboratory Tests 09/23/19 17:50: Stool Occult Blood [Pending] 09/24/19 05:40: White Blood Count 5.4, Red Blood Count 3.17L, Hemoglobin 9.1L, Hematocrit 28.2L , Mean Corpuscular Volume 89, Mean Corpuscular Hemoglobin 28.7, Mean Corpuscular Hemoglobin Concent 32.3, Red Cell Distribution Width 21.2H, Platelet Count 152, Mean Platelet Volume 10.8H, Neutrophils (%) (Auto) 77.8H, Lymphocytes (%) (Auto) 14.6L, Monocytes (%) (Auto) 3.1, Eosinophils (%) (Auto) 0.8, Basophils (%) (Auto) 3.8H, Prothrombin Time 12.8H, Prothromb Time International Ratio 1.2H, Sodium Level 138, Potassium Level 4.1, Chloride Level 107, Carbon Dioxide Level 24, Anion Gap 7, Blood Urea Nitrogen 20H, Creatinine 0.8, Estimat Glomerular Filtration Rate > 60, Glucose Level 95, Calcium Level 8.5 Current Medications Medications (Trade) Dose Ordered Sig/Escobar Route PRN Reason Start Time Stop Time Status Last Admin Dose Admin Acetaminophen (Tylenol) 650 mg Q4H PRN ORAL T>100.5 09/24/19 01:03 10/21/19 01:02 Amiodarone HCl (Cordarone) 200 mg DAILY ORAL 09/24/19 09:00 12/21/19 08:59 09/24/19 09:02 Digoxin (Lanoxin) 0.125 mg DAILY ORAL 09/24/19 09:00 12/22/19 08:59 09/24/19 09:01 Folic Acid (Folate) 1 mg DAILY ORAL 09/24/19 09:00 10/24/19 08:59 09/24/19 09:01 Gabapentin (Neurontin) 300 mg THREE TIMES A DAY ORAL 09/24/19 09:00 10/22/19 08:59 09/24/19 09:01 Metoprolol Tartrate (Lopressor) 50 mg EVERY 12 HOURS ORAL 09/24/19 21:00 12/20/19 20:59 Ondansetron HCl (Zofran) 4 mg Q6H PRN IVP Nausea & Vomiting 09/24/19 01:15 10/21/19 19:14 Pantoprazole (Protonix) 40 mg EVERY 12 HOURS IVP 09/24/19 09:00 10/22/19 13:44 09/24/19 08:59 Zolpidem Tartrate (Ambien) 5 mg HSPRN PRN ORAL Insomnia 09/24/19 01:04 09/28/19 01:03 Assessment/Plan Problems: (1) Anemia (2) 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 f/u GI recommendations symptomatic treatment trial of Kelly Flores MD Sep 24, 2019 11:59
[2019-09-24 12:00] VITALS: BP 110/59
--- NOTE | 2019-09-24 13:03 | Diagnostic Imaging Report ---
CLINICAL INDICATION:Abdominal pain, severe anemia TECHNIQUE: Patient ingested oral contrast. IV administration nonionic contrast. Multiphasic spiral acquisitions obtained through the chest, abdomen, and pelvis. Multiplanar reconstructions were generated. Total dose length product 454 mGycm. CTDIvol(s) 2, 86, 6, 4 mGy. Radiation dose was minimized using automated exposure control COMPARISON: 06/22/2019 FINDINGS Chest: The lungs demonstrate a mosaic perfusion pattern, which is more striking than that seen previously. Some atelectasis and consolidation is seen involving both lower lobes. This appears similar on the right, slightly more extensive on the left. There is a moderate-sized right pleural effusion which appears similar to the previous study. There is a small left pleural effusion which is new since the previous study. Previous exam demonstrated a 1.5 cm opacity in the inferior right azygoesophageal recess. This is not evident currently although could be obscured by surrounding atelectatic lung. The heart is enlarged. There is a left chest pacemaker again demonstrated. No pericardial effusion. No mediastinal or hilar mass or adenopathy. Right lower pole thyroid calcification is again demonstrated. No axillary or chest wall mass or adenopathy. There are fairly profound degenerative changes of the bilateral shoulders. There is evidence of interim healing of previously demonstrated right rib fractures, nearly but not completely healed as some fracture lines persist. There are degenerative changes of the thoracic spine noted. Abdomen pelvis: What is probably a normal appendix is demonstrated. There is extensive colonic diverticulosis. No evidence of diverticulitis. The rectum is mildly distended, mostly with gas with some stool as well. No small bowel distention or small bowel wall thickening. Numerous surgical clips are seen in the retroperitoneum and left side of the pelvis. The stomach and duodenum are unremarkable. The gallbladder contains a gallstone. No biliary ductal dilatation. The liver is mildly enlarged. The pancreas is unremarkable. The spleen is enlarged, measuring 14 cm long axis dimension. It demonstrates a complex upper pole cyst, also previously demonstrated the adrenals and kidneys are unremarkable. There is a retroaortic left renal vein incidentally noted. The uterus is absent.. The bladder is unremarkable. The bones demonstrate degenerative spondylosis changes. IMPRESSION: Cardiomegaly Unchanged moderate right pleural effusion, since June 2019. New small left pleural effusion Bilateral mosaic perfusion pattern, probably on the basis of pulmonary edema Bilateral basilar compressive atelectasis and possible consolidation Interim healing of previously demonstrated right rib fractures Previously demonstrated right azygoesophageal recess lesion is no longer evident, may have resolved or may be obscured by surrounding lung parenchyma. Cholelithiasis Hepatomegaly Splenomegaly Splenic cystic lesion, unchanged from prior exam Postsurgical changes as described, including pacemaker, evidence of prior hysterectomy, evidence of prior pelvic lymph node dissection, prior hysterectomy Other findings as noted, including degenerative spondylosis, degenerative changes of the bilateral shoulders The CT scanner at [facility] is accredited by the [employer] and the scans are performed using protocols designed to limit radiation exposure to as low as reasonably achievable to attain images of sufficient resolution adequate for diagnostic evaluation.
--- NOTE | 2019-09-24 14:47 | Diagnostic Imaging Report ---
Indication: Abdominal distention, anemia, renal failure Technique: Orta-scale and duplex images of the upper abdomen were obtained Comparison: Abdomen pelvis CT of the same day , 08/03/2018 sonogram Findings: Gallbladder demonstrates a gallstone. This also reported on same day CT. Sonographic Camacho's sign is negative. Common bile duct measures 5 mm in diameter. No intrahepatic biliary ductal dilatation. Liver demonstrates normal echogenicity, no focal abnormality. Portal vein and hepatic veins are patent. Pancreas is unremarkable. The spleen demonstrates a complex upper pole cyst that measures 2.7 cm in diameter. The spleen is borderline enlarged. There are bilateral pleural effusions Left kidney measures 10.2 cm in length. Right kidney measures 9.2 cm length. Both kidneys demonstrate normal echogenicity. There is no hydronephrosis. No focal abnormality . Non-aneurysmal abdominal aorta . Impression: Cholelithiasis. Negative for dilated bile ducts 2.7 cm complex upper pole splenic cyst, also reported on prior imaging studies. Bilateral pleural effusions
[2019-09-24 16:00] VITALS: BP 118/61
--- NOTE | 2019-09-24 16:44 | Internal Med Progress Note ---
Subjective Date of Service: Sep 24, 2019 Physician Name Roshan Edwards Attending Physician Antonio Adrian MD Current Medications Medications (Trade) Dose Ordered Sig/Escobar Route PRN Reason Start Time Stop Time Status Last Admin Dose Admin Acetaminophen (Tylenol) 650 mg Q4H PRN ORAL T>100.5 09/24/19 01:03 10/21/19 01:02 Amiodarone HCl (Cordarone) 200 mg DAILY ORAL 09/24/19 09:00 12/21/19 08:59 09/24/19 09:02 Digoxin (Lanoxin) 0.125 mg DAILY ORAL 09/24/19 09:00 12/22/19 08:59 09/24/19 09:01 Folic Acid (Folate) 1 mg DAILY ORAL 09/24/19 09:00 10/24/19 08:59 09/24/19 09:01 Gabapentin (Neurontin) 300 mg THREE TIMES A DAY ORAL 09/24/19 09:00 10/22/19 08:59 09/24/19 13:20 Metoprolol Tartrate (Lopressor) 50 mg EVERY 12 HOURS ORAL 09/24/19 21:00 12/20/19 20:59 Ondansetron HCl (Zofran) 4 mg Q6H PRN IVP Nausea & Vomiting 09/24/19 01:15 10/21/19 19:14 Pantoprazole (Protonix) 40 mg EVERY 12 HOURS IVP 09/24/19 09:00 10/22/19 13:44 09/24/19 08:59 Zolpidem Tartrate (Ambien) 5 mg HSPRN PRN ORAL Insomnia 09/24/19 01:04 09/28/19 01:03 Allergies: Coded Allergies: No Known Allergies (Unverified , 04/24/18) ROS Limited/Unobtainable: No Constitutional: Reports: no symptoms HEENT: Reports: no symptoms Cardiovascular: Reports: no symptoms Respiratory: Reports: no symptoms Gastrointestinal/Abdominal: Reports: no symptoms Genitourinary: Reports: no symptoms Neurologic/Psychiatric: Reports: no symptoms Subjective 79 YO F admitted with generalized weakness. Now severe anemia. Cover for Int med-Dr Adrian. Objective Last Vital Signs Date Time Temp Pulse Resp B/P (MAP) Pulse Ox O2 Delivery O2 Flow Rate FiO2 09/24/19 16:00 97.5 61 17 118/61 (80) 96 8/13/20 09:00 Nasal Cannula 2.0 09/24/19 07:25 28 Laboratory Tests Test 09/23/19 17:50 09/24/19 05:40 Stool Occult Blood Negative (NEGATIVE) White Blood Count 5.4 K/UL (4.8-10.8) Red Blood Count 3.17 M/UL (4.20-5.40) L Hemoglobin 9.1 G/DL (12.0-16.0) L Hematocrit 28.2 % (37.0-47.0) L Mean Corpuscular Volume 89 FL (80-99) Mean Corpuscular Hemoglobin 28.7 PG (27.0-31.0) Mean Corpuscular Hemoglobin Concent 32.3 G/DL (32.0-36.0) Red Cell Distribution Width 21.2 % (11.6-14.8) H Platelet Count 152 K/UL (150-450) Mean Platelet Volume 10.8 FL (6.5-10.1) H Neutrophils (%) (Auto) 77.8 % (45.0-75.0) H Lymphocytes (%) (Auto) 14.6 % (20.0-45.0) L Monocytes (%) (Auto) 3.1 % (1.0-10.0) Eosinophils (%) (Auto) 0.8 % (0.0-3.0) Basophils (%) (Auto) 3.8 % (0.0-2.0) H Prothrombin Time 12.8 SEC (9.30-11.50) H Prothromb Time International Ratio 1.2 (0.9-1.1) H Sodium Level 138 MMOL/L (136-145) Potassium Level 4.1 MMOL/L (3.5-5.1) Chloride Level 107 MMOL/L (98-107) Carbon Dioxide Level 24 MMOL/L (21-32) Anion Gap 7 mmol/L (5-15) Blood Urea Nitrogen 20 mg/dL (7-18) H Creatinine 0.8 MG/DL (0.55-1.30) Estimat Glomerular Filtration Rate > 60 mL/min (>60) Glucose Level 95 MG/DL (74-106) Calcium Level 8.5 MG/DL (8.5-10.1) Intake and Output 09/23/19 09/24/19 19:00 07:00 Intake Total 500 ml Balance 500 ml Intake Oral 500 ml # Voids 5 3 # Bowel Movements 1 Objective PHYSICAL EXAMINATION: GENERAL: The patient is a well-developed, well-nourished female, in no apparent distress. HEENT: Eyes, pupils equal and responsive to light and accommodation. Extraocular movements are intact. NECK: Supple without lymphadenopathy. CHEST: Lungs are clear to auscultation bilaterally without wheezes or rales. CARDIOVASCULAR: Regular rate. S1-S2 are normal without murmurs, rubs, or gallops. ABDOMEN: Soft, nontender, nondistended with positive bowel sounds. No evidence of hepatosplenomegaly. Currently no rebound or guarding noted. EXTREMITIES: Negative for clubbing, cyanosis, or edema. RECTAL/GENITAL: Not performed. NEUROLOGICAL: Cranial nerves II through XII are grossly intact without focal deficits. Motor strength is 5/5 bilaterally. Deep tendon reflexes are 2+, plantar. Assessment/Plan Assessment/Plan ASSESSMENT: This is an 79-year-old female. 1. Generalized weakness. 2. Severe anemia. 3. Chronic atrial fibrillation. 4. Polycythemia vera. 5. History of cerebrovascular accident/transient ischemic attack. 6. Obstructive sleep apnea. 7. Coronary artery disease. 8. Hypercholesterolemia. 9. Congestive heart failure. 10. History of sick sinus syndrome. 11. History of right hemothorax. TREATMENT: 1. Generalized weakness. This is probably secondary to severe anemia as below. 2. Severe anemia-macrocytic anemia Reason for anemia is unknown. ?polycythemia vera and bone marrow suppression? A hematology consultation has been obtained with Dr Kaplan. The patient is S/P transfusion 4 units of packed RBCs. Follow Hgb. A GI consultation has been obtained with Dr Kaiser. Patient refused colonoscopy 3. Polycythemia vera, as above. 4. Chronic atrial fibrillation/coronary artery disease. A cardiology consultation has been obtained with Dr. Freitas. 5. Sick sinus syndrome. The patient is status post pacemaker implantation. Await pacemaker interrogation 6. Hypercholesterolemia. 7. History of congestive heart failure. 8. History of right hemothorax, status post VATS procedure. 9. Await colonoscopy 10. Patient Refused ultrasound Roshan Edwards MD Sep 24, 2019 16:44
--- NOTE | 2019-09-24 19:05 | NUR ---
NURSE NOTES: Report received from Liat ROTH.
--- NOTE | 2019-09-24 19:25 | NUR ---
NURSE HAND-OFF: Important Events on Shift: S/P CT Chest/Abdomen/Pelvis and Abdominal Ultrasound, results unremarkable for bleeding Patient Status: Stable Diet: Regular soft, easy chew Pending Orders: Still for stool collection for Stool OB x 2 Pending Results/Labs: None Pending MD notification:None Latest Vital Signs: Temperature 97.5 , Pulse 61 , B/P 118 /61 , Respiratory Rate 17 , O2 SAT 96 , Nasal Cannula, O2 Flow Rate 2.0 . Vital Sign Comment: Latest Yepez Fall Score: 60 Fall Risk: High Risk Safety Measures: Call light Within Reach, Bed Alarm Zone 1, Side Rails Side Rails x2, Bed position Low and Locked. Fall Precautions: Yellow Socks Yellow Gown Door Sign Patient Fall Education Report given to Lizzie ROTH.
--- NOTE | 2019-09-24 19:44 | Surgery Progress Note ---
Surgery Progress Note Subjective Symptoms: improved, tolerating diet, passing flatus, BM Objective Last 24 Hour Vital Signs Date Time Temp Pulse Resp B/P (MAP) Pulse Ox O2 Delivery O2 Flow Rate FiO2 09/24/19 16:00 97.5 61 17 118/61 (80) 96 09/24/19 12:00 98.1 71 17 110/59 (76) 95 09/24/19 09:10 61 102/57 09/24/19 09:01 61 09/24/19 09:00 Nasal Cannula 2.0 09/24/19 08:00 98.5 61 18 102/57 (72) 94 09/24/19 07:25 96 Nasal Cannula 2.0 28 09/24/19 04:00 98.1 65 18 111/64 (80) 94 09/24/19 00:00 97.7 61 18 109/55 (73) 96 09/23/19 21:33 62 115/62 09/23/19 21:00 Nasal Cannula 2.0 09/23/19 20:00 94 Nasal Cannula 2.0 28 09/23/19 20:00 97.9 61 17 115/59 (77) 96 I&O Intake and Output 09/23/19 09/24/19 19:00 07:00 Intake Total 500 ml Balance 500 ml Intake Oral 500 ml # Voids 5 3 # Bowel Movements 1 Cardiovascular: RSR Respiratory: decreased breath sounds Abdomen: soft, non-tender, present bowel sounds Extremities: no tenderness, no cyanosis Laboratory Tests Test 09/24/19 05:40 White Blood Count 5.4 K/UL (4.8-10.8) Red Blood Count 3.17 M/UL (4.20-5.40) L Hemoglobin 9.1 G/DL (12.0-16.0) L Hematocrit 28.2 % (37.0-47.0) L Mean Corpuscular Volume 89 FL (80-99) Mean Corpuscular Hemoglobin 28.7 PG (27.0-31.0) Mean Corpuscular Hemoglobin Concent 32.3 G/DL (32.0-36.0) Red Cell Distribution Width 21.2 % (11.6-14.8) H Platelet Count 152 K/UL (150-450) Mean Platelet Volume 10.8 FL (6.5-10.1) H Neutrophils (%) (Auto) 77.8 % (45.0-75.0) H Lymphocytes (%) (Auto) 14.6 % (20.0-45.0) L Monocytes (%) (Auto) 3.1 % (1.0-10.0) Eosinophils (%) (Auto) 0.8 % (0.0-3.0) Basophils (%) (Auto) 3.8 % (0.0-2.0) H Prothrombin Time 12.8 SEC (9.30-11.50) H Prothromb Time International Ratio 1.2 (0.9-1.1) H Sodium Level 138 MMOL/L (136-145) Potassium Level 4.1 MMOL/L (3.5-5.1) Chloride Level 107 MMOL/L (98-107) Carbon Dioxide Level 24 MMOL/L (21-32) Anion Gap 7 mmol/L (5-15) Blood Urea Nitrogen 20 mg/dL (7-18) H Creatinine 0.8 MG/DL (0.55-1.30) Estimat Glomerular Filtration Rate > 60 mL/min (>60) Glucose Level 95 MG/DL (74-106) Calcium Level 8.5 MG/DL (8.5-10.1) Plan Problems: (1) ACS (acute coronary syndrome) (2) Pyelonephritis (3) CAD (coronary artery disease) (4) COPD (chronic obstructive pulmonary disease) (5) positional vertigo (6) KELVIN (obstructive sleep apnea) (7) Peripheral neuropathy (8) Myelofibrosis (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 hx of bleeding held anticoagulation since prior right hemothorax s/p evacuation and vats transfusing prbc coags noted may need ffp ddx includes possible GI hemorrhage. protonix ordered pending GI eval consider scope CT once stable US abd ordered thank you will follow with recs trend h/h transfuse Errol Roman Sep 24, 2019 19:44
[2019-09-24 20:00] VITALS: BP 102/61
[2019-09-25] VITALS: BP 115/63
[2019-09-25 04:00] VITALS: BP 104/59
[2019-09-25 06:06] LABS: BASOPHILS % (AUTO) 4.8 % (0.0-2.0); EOSINOPHILS % (AUTO) 0.8 % (0.0-3.0); HEMATOCRIT 26.9 % (37.0-47.0); HEMOGLOBIN 8.8 G/DL (12.0-16.0); LYMPHOCYTES % (AUTO) 20.3 % (20.0-45.0); MEAN CORPUSCULAR VOLUME 88 FL (80-99); MONOCYTES % (AUTO) 3.2 % (1.0-10.0); NEUTROPHILS % (AUTO) 70.9 % (45.0-75.0); PLATELET COUNT 153 K/UL (150-450); RED BLOOD COUNT 3.06 M/UL (4.20-5.40); RED CELL DISTRIBUTION WIDTH 19.8 % (11.6-14.8); WHITE BLOOD COUNT 4.6 K/UL (4.8-10.8)
[2019-09-25 06:24] LABS: ANION GAP 8 mmol/L (5-15); BLOOD UREA NITROGEN 18 mg/dL (7-18); CALCIUM 8.6 MG/DL (8.5-10.1); CARBON DIOXIDE 26 MMOL/L (21-32); CHLORIDE 105 MMOL/L (98-107); CREATININE 0.9 MG/DL (0.55-1.30); POTASSIUM 4.1 MMOL/L (3.5-5.1); SODIUM 139 MMOL/L (136-145)
[2019-09-25 06:35] LABS: % IRON SATURATION 68 % (15-50); IRON 92 ug/dL (50-175); TOTAL IRON BINDING CAPACITY 136 ug/dL (250-450)
--- NOTE | 2019-09-25 06:43 | Consultation ---
History of Present Illness General Chief Complaint: Generalized Weakness Present Illness Allergies: Coded Allergies: No Known Allergies (Unverified , 04/24/18) Medication History Scheduled Amiodarone Hcl* (Pacerone*), 200 MG ORAL DAILY, (Reported) Furosemide* (Lasix*), 20 MG ORAL DAILY Gabapentin* (Gabapentin*), 300 MG ORAL THREE TIMES A DAY, (Reported) Metoprolol Tartrate* (Metoprolol Tartrate*), 50 MG ORAL EVERY 12 HOURS Scheduled PRN Acetaminophen* (Tylenol Extra Strength*), 500 MG ORAL Q6H PRN for For Pain, ( Reported) Petrolatum,White/Lanolin (Vitamin A & D Ointment), 113 GM TP for dry skin, ( Reported) Miscellaneous Medications Menthol/Zinc Oxide (Calmoseptine Ointment), 3.5 GM TP, (Reported) Discontinued Medications Diphenhydramine Hcl* (Diphenhydramine Hcl*), 25 MG ORAL DAILY PRN for ALLERGIES, (Reported) Discontinued Reason: Therapy completed Gabapentin* (Gabapentin*), 300 MG ORAL THREE TIMES A DAY, (Reported) Discontinued Reason: Prescription changed Hydroxyurea* (HYDREA 500mg*), 500 MG PO DAILY, (Reported) Discontinued Reason: Therapy completed Loratadine (Loratadine), 10 MG PO DAILY, (Reported) Discontinued Reason: Therapy completed Patient History Healthcare decision maker N Resuscitation status Advanced Directive on File Physical Exam Last 24 Hour Vital Signs Date Time Temp Pulse Resp B/P (MAP) Pulse Ox O2 Delivery O2 Flow Rate FiO2 09/25/19 00:00 97.3 61 20 115/63 (80) 93 09/24/19 21:00 Nasal Cannula 2.0 09/24/19 20:54 68 109/71 09/24/19 20:00 96.8 61 20 102/61 (75) 91 09/24/19 19:46 97 Nasal Cannula 2.0 28 09/24/19 16:00 97.5 61 17 118/61 (80) 96 09/24/19 12:00 98.1 71 17 110/59 (76) 95 09/24/19 09:10 61 102/57 09/24/19 09:01 61 09/24/19 09:00 Nasal Cannula 2.0 09/24/19 08:00 98.5 61 18 102/57 (72) 94 09/24/19 07:25 96 Nasal Cannula 2.0 28 Intake and Output 09/24/19 09/25/19 19:00 07:00 Intake Total 300 ml 360 ml Output Total 3 ml Balance 300 ml 357 ml Intake Oral 300 ml Other 360 ml Output Urine Total 3 ml # Voids 2 Laboratory Tests Test 09/25/19 05:27 White Blood Count 4.6 K/UL (4.8-10.8) L Red Blood Count 3.06 M/UL (4.20-5.40) L Hemoglobin 8.8 G/DL (12.0-16.0) L Hematocrit 26.9 % (37.0-47.0) L Mean Corpuscular Volume 88 FL (80-99) Mean Corpuscular Hemoglobin 28.7 PG (27.0-31.0) Mean Corpuscular Hemoglobin Concent 32.7 G/DL (32.0-36.0) Red Cell Distribution Width 19.8 % (11.6-14.8) H Platelet Count 153 K/UL (150-450) Mean Platelet Volume 9.7 FL (6.5-10.1) Neutrophils (%) (Auto) 70.9 % (45.0-75.0) Lymphocytes (%) (Auto) 20.3 % (20.0-45.0) Monocytes (%) (Auto) 3.2 % (1.0-10.0) Eosinophils (%) (Auto) 0.8 % (0.0-3.0) Basophils (%) (Auto) 4.8 % (0.0-2.0) H Sodium Level 139 MMOL/L (136-145) Potassium Level 4.1 MMOL/L (3.5-5.1) Chloride Level 105 MMOL/L (98-107) Carbon Dioxide Level 26 MMOL/L (21-32) Anion Gap 8 mmol/L (5-15) Blood Urea Nitrogen 18 mg/dL (7-18) Creatinine 0.9 MG/DL (0.55-1.30) Estimat Glomerular Filtration Rate > 60 mL/min (>60) Glucose Level 92 MG/DL (74-106) Calcium Level 8.6 MG/DL (8.5-10.1) Iron Level 92 ug/dL (50-175) Total Iron Binding Capacity 136 ug/dL (250-450) L Percent Iron Saturation 68 % (15-50) H Unsaturated Iron Binding 44 ug/dL (112-346) L Vitamin B12 Level Pending Folate Pending Height (Feet): 5 Height (Inches): 1.00 Weight (Pounds): 116 Medications Current Medications Medications (Trade) Dose Ordered Sig/Escobar Route PRN Reason Start Time Stop Time Status Last Admin Dose Admin Acetaminophen (Tylenol) 650 mg Q4H PRN ORAL T>100.5 09/24/19 01:03 10/21/19 01:02 Amiodarone HCl (Cordarone) 200 mg DAILY ORAL 09/24/19 09:00 12/21/19 08:59 09/24/19 09:02 Digoxin (Lanoxin) 0.125 mg DAILY ORAL 09/24/19 09:00 12/22/19 08:59 09/24/19 09:01 Folic Acid (Folate) 1 mg DAILY ORAL 09/24/19 09:00 10/24/19 08:59 09/24/19 09:01 Gabapentin (Neurontin) 300 mg THREE TIMES A DAY ORAL 09/24/19 09:00 10/22/19 08:59 09/24/19 17:05 Metoprolol Tartrate (Lopressor) 50 mg EVERY 12 HOURS ORAL 09/24/19 21:00 12/20/19 20:59 09/24/19 20:54 Ondansetron HCl (Zofran) 4 mg Q6H PRN IVP Nausea & Vomiting 09/24/19 01:15 10/21/19 19:14 Pantoprazole (Protonix) 40 mg EVERY 12 HOURS IVP 09/24/19 09:00 10/22/19 13:44 09/24/19 20:54 Zolpidem Tartrate (Ambien) 5 mg HSPRN PRN ORAL Insomnia 09/24/19 01:04 09/28/19 01:03 Assessment/Plan Assessment/Plan: Hematology Consultation REOmari JOHNSON: Roshan Edwards 09/25/2019 RFC: PV and Anemia HPI 79-year-old female with past medical history of symptomatic anemia, hypertension , CVA/TIA, A. fib, pacemaker secondary to sick sinus syndrome sent by Dr. Adrian for generalized weakness. The patient's symptoms were gradual onset, severity was moderate, duration since several days. Denies chest pain, shortness of breath, fever, cough, chills, nausea, vomiting, melena, hematochezia, hematemesis. She does not recall her last endoscopy or colonoscopy. History is limited secondary to patient's poor recollection of her previous history. She is a poor historian. Past medical history: Anemia, hypertension, A. fib, CAD, sick sinus syndrome Past surgical history: Pacemaker Smoking: Denies Alcohol use: Denies Drug use: Denies Review of systems: CONST: Generalized weakness No fevers or chills, No night sweats PULMONARY: No productive cough, No shortness of breath CARDIAC: No chest pain, No palpitations GI: No vomiting, No diarrhea , No melena_or_BRBPR : No dysuria, No hematuria, No discharge NEURO: No new_focal_weakness_or_numbness, No confusion, No vision changes 14 point Review of Systems is otherwise negative except per HPI Physical Exam: GENERAL: Awake_alert_ nontoxic, no acute distress Spo2 94 % on RA -normal EYES: Extraocular muscles are intact. Conjunctivae clear. Lids without swelling ENT: External nose and ear normal_in_appearance. Oropharynx clear. Head_ atraumatic NECK: No JVD. No meningismus. No thyromegaly. Supple. Trachea midline RESP: Normal respiratory effort. Symmetric rise. No stridor. CARDIAC: Regular rate and regular rhythm on_auscultation No_significant pedal edema. ABDOMEN: Soft. Nondistended. Nontender_No_rebound_or_guarding. MSK: Normal muscle tone, without rigidity. Extremities without asymmetric deformity or swelling. SKIN: Warm and dry. No visible cyanosis or pallor NEUROLOGIC: Alert, oriented x3. Motor_and_sensation_grossly_intact. Psych: Normal mood and affect, normal judgment and insight Labs noted Imaging: reviewed ASSESSMENT AND RECOMMENDATIONS # Polycythemia vera, JAK2+++. Cont on hydroxyurea --> obtain jak2 level--> was detected -> consider outpatient hydrea when h/h better --> imaging abd us ordered - Splenomegaly. 3 cm cyst within the spleen probably complex with at least one or 2 septations. Trace right pleural effusion. Gallbladder sludge versus stones. --> likely will need better titration of hydrea on discharged # Anemia of chronic disease due to underlying chronic medical issues, multifactorial, also due to polycythemia vera, hgb 5 on admission --> Anemia workup has been ordered, rule out gi bleed - results pending. --> No evidence of hemolysis is noted, peripheral smear has been reviewed. --> Hgb goal >7. Transfuse prn. --> S/P IV iron x 5 days 08/06/18 --> Medications have been reviewed --> low threshold for gi evaluation in case has occult --> Hgb trend:4.8-->5.1-->9 --> Patient received an EGD by GI at that time that showed gastritis. No varices # Vertigo. --> per neuro as needed # Atrial fibrillation with rapid ventricular rate. Cardiology is following, appreciate recs. --> Serial troponin levels will be performeD prior and neg --> started on amio for rapid ventricular rate. # Hypertension. Cont on clonidine # Obstructive sleep apnea. # Coronary artery disease. # Hypercholesteremia. # Congestive heart failure. # Dvt ppx scds The time the the note is entered does not reflect the time the patient was examined. I greatly appreciate the consultation. Best Kaplan MD Sep 25, 2019 06:43
--- NOTE | 2019-09-25 06:51 | General Progress Note ---
Assessment/Plan Assessment/Plan: 1. History of chronic anemia. 2. Polycythemia rubra vera. 3. Atrial fibrillation. 4. Hypertension. 5. Obstructive sleep apnea. 6. Coronary artery disease. 7. History of HI in the past. 8. Hypercholesteremia. 9. CHF. 10. UTI/pyelonephritis. 11. gallstones 12. hepatomegaly 13. splenomegaly 14. right pleural effusion patient refused colonoscopy fu stool ob>>>neg fu H&H>>> stable abd us and CT>>> reviewed will fu Subjective ROS Limited/Unobtainable: Yes Allergies: Coded Allergies: No Known Allergies (Unverified , 04/24/18) Objective Last 24 Hour Vital Signs Date Time Temp Pulse Resp B/P (MAP) Pulse Ox O2 Delivery O2 Flow Rate FiO2 09/25/19 06:42 95 Room Air 21 09/25/19 04:00 97.0 60 20 104/59 (74) 92 09/25/19 00:00 97.3 61 20 115/63 (80) 93 09/24/19 21:00 Nasal Cannula 2.0 09/24/19 20:54 68 109/71 09/24/19 20:00 96.8 61 20 102/61 (75) 91 09/24/19 19:46 97 Nasal Cannula 2.0 28 09/24/19 16:00 97.5 61 17 118/61 (80) 96 09/24/19 12:00 98.1 71 17 110/59 (76) 95 09/24/19 09:10 61 102/57 09/24/19 09:01 61 09/24/19 09:00 Nasal Cannula 2.0 09/24/19 08:00 98.5 61 18 102/57 (72) 94 09/24/19 07:25 96 Nasal Cannula 2.0 28 Intake and Output 09/24/19 09/25/19 19:00 07:00 Intake Total 300 ml 360 ml Output Total 3 ml Balance 300 ml 357 ml Intake Oral 300 ml Other 360 ml Output Urine Total 3 ml # Voids 2 Laboratory Tests 09/25/19 05:27: White Blood Count 4.6L, Red Blood Count 3.06L, Hemoglobin 8.8L, Hematocrit 26.9L , Mean Corpuscular Volume 88, Mean Corpuscular Hemoglobin 28.7, Mean Corpuscular Hemoglobin Concent 32.7, Red Cell Distribution Width 19.8H, Platelet Count 153, Mean Platelet Volume 9.7, Neutrophils (%) (Auto) 70.9, Lymphocytes (%) (Auto) 20.3, Monocytes (%) (Auto) 3.2, Eosinophils (%) (Auto) 0.8, Basophils (%) (Auto) 4.8H, Sodium Level 139, Potassium Level 4.1, Chloride Level 105, Carbon Dioxide Level 26, Anion Gap 8, Blood Urea Nitrogen 18, Creatinine 0.9, Estimat Glomerular Filtration Rate > 60, Glucose Level 92, Calcium Level 8.6, Iron Level 92, Total Iron Binding Capacity 136L, Percent Iron Saturation 68H, Unsaturated Iron Binding 44L, Ferritin [Pending], Vitamin B12 Level [Pending], Folate [Pending] Height (Feet): 5 Height (Inches): 1.00 Weight (Pounds): 116 General Appearance: alert EENT: normal ENT inspection Neck: supple Cardiovascular: normal rate Respiratory/Chest: decreased breath sounds Abdomen: normal bowel sounds, non tender, soft Extremities: non-tender Blair Kaiser MD Sep 25, 2019 06:51
--- NOTE | 2019-09-25 07:05 | NUR ---
HAND-OFF: Report given to Liat ROTH.
--- NOTE | 2019-09-25 07:40 | NUR ---
NURSE NOTES: Report received from Ali RN. Patient seen on rounds, AxOx3, Mac[place] speaking. Not in pain or distress, O2 at 2lpm via NC. PIV on right forearm patent and intact. Pt is ambulatory and continent with assist to bedside commode. Still for OB stool collection x2. Bed low and locked, siderails up x2, call light placed within reach and instructed to call nurse for assistance. Will continue to monitor.
[2019-09-25 08:00] VITALS: BP 110/59
[2019-09-25] MEDS: Amiodarone 200mg tab ORAL SCH (08:28)
[2019-09-25] MEDS: Metoprolol Tartrate 50mg tab ORAL SCH ×2 (08:29→20:34)
[2019-09-25] MEDS: Digoxin 0.125mg tab ORAL SCH (08:29)
--- NOTE | 2019-09-25 08:30 | Cardiac Electrophysiology PN ---
Assessment/Plan Assessment/Plan 1. Weakness due to profound anemia, hemoglobin of 4.8. S/P four units of blood transfusion. GI workup for last two years had two endoscopies. Last one in July 2018, which was negative for obvious GI bleeding. Stool OBs are negative. S/P ABD US, Chests CT yesterday. Refused Colonoscopy per Dr Kaiser 2. Status post [employer] pacemaker implantation by me in 2010 and generator change by me in 2018 with normal function by interrogation on last visit. 3. Paroxysmal atrial fibrillation with rapid ventricular response and atrially paced rhythm on amiodarone 200 mg daily, metoprolol 50 mg bid and digoxin 0.125 mg daily . Off anticoagulation for severe anemia requiring multiple blood transfusions in the past. 4. Hypertension, on metoprolol. 5. Urinary tract infection. 6. History of polycythemia vera. 7. Severe pulmonary hypertension with PA pressure of 71. 8. Hemothorax status post VATS by Dr. Malik in 07/2019. RILEY RN. Subjective Subjective S/P Chest CT and abdominal US. Off tele. No CP Objective Last 24 Hour Vital Signs Date Time Temp Pulse Resp B/P (MAP) Pulse Ox O2 Delivery O2 Flow Rate FiO2 09/25/19 08:00 98.9 64 17 110/59 (76) 92 09/25/19 06:42 95 Room Air 21 09/25/19 04:00 97.0 60 20 104/59 (74) 92 09/25/19 00:00 97.3 61 20 115/63 (80) 93 09/24/19 21:00 Nasal Cannula 2.0 09/24/19 20:54 68 109/71 09/24/19 20:00 96.8 61 20 102/61 (75) 91 09/24/19 19:46 97 Nasal Cannula 2.0 28 09/24/19 16:00 97.5 61 17 118/61 (80) 96 09/24/19 12:00 98.1 71 17 110/59 (76) 95 09/24/19 09:10 61 102/57 09/24/19 09:01 61 09/24/19 09:00 Nasal Cannula 2.0 Intake and Output 09/24/19 09/25/19 19:00 07:00 Intake Total 300 ml 360 ml Output Total 3 ml Balance 300 ml 357 ml Intake Oral 300 ml Other 360 ml Output Urine Total 3 ml # Voids 2 Laboratory Tests Test 09/25/19 05:27 White Blood Count 4.6 K/UL (4.8-10.8) L Red Blood Count 3.06 M/UL (4.20-5.40) L Hemoglobin 8.8 G/DL (12.0-16.0) L Hematocrit 26.9 % (37.0-47.0) L Mean Corpuscular Volume 88 FL (80-99) Mean Corpuscular Hemoglobin 28.7 PG (27.0-31.0) Mean Corpuscular Hemoglobin Concent 32.7 G/DL (32.0-36.0) Red Cell Distribution Width 19.8 % (11.6-14.8) H Platelet Count 153 K/UL (150-450) Mean Platelet Volume 9.7 FL (6.5-10.1) Neutrophils (%) (Auto) 70.9 % (45.0-75.0) Lymphocytes (%) (Auto) 20.3 % (20.0-45.0) Monocytes (%) (Auto) 3.2 % (1.0-10.0) Eosinophils (%) (Auto) 0.8 % (0.0-3.0) Basophils (%) (Auto) 4.8 % (0.0-2.0) H Sodium Level 139 MMOL/L (136-145) Potassium Level 4.1 MMOL/L (3.5-5.1) Chloride Level 105 MMOL/L (98-107) Carbon Dioxide Level 26 MMOL/L (21-32) Anion Gap 8 mmol/L (5-15) Blood Urea Nitrogen 18 mg/dL (7-18) Creatinine 0.9 MG/DL (0.55-1.30) Estimat Glomerular Filtration Rate > 60 mL/min (>60) Glucose Level 92 MG/DL (74-106) Calcium Level 8.6 MG/DL (8.5-10.1) Iron Level 92 ug/dL (50-175) Total Iron Binding Capacity 136 ug/dL (250-450) L Percent Iron Saturation 68 % (15-50) H Unsaturated Iron Binding 44 ug/dL (112-346) L Ferritin 703 NG/ML (8-388) H Vitamin B12 Level 1033 PG/ML (193-986) H Folate 42.8 NG/ML (8.6-58.9) Objective HEAD AND NECK: No JVD or carotid bruits. Sclerae are very pale. LUNGS: Clear. CARDIOVASCULAR: Shows regular S1 and S2 with no gallop. Pacemaker in the left subclavian, healed. ABDOMEN: Soft. EXTREMITIES: No pitting edema. River Freitas MD Sep 25, 2019 08:30
[2019-09-25 12:00] VITALS: BP 118/61
--- NOTE | 2019-09-25 13:48 | Internal Med Progress Note ---
Subjective Physician Name Antonio Adrian Attending Physician Antonio Adrian MD Current Medications Medications (Trade) Dose Ordered Sig/Escobar Route PRN Reason Start Time Stop Time Status Last Admin Dose Admin Acetaminophen (Tylenol) 650 mg Q4H PRN ORAL T>100.5 09/24/19 01:03 10/21/19 01:02 Amiodarone HCl (Cordarone) 200 mg DAILY ORAL 09/24/19 09:00 12/21/19 08:59 09/25/19 08:28 Digoxin (Lanoxin) 0.125 mg DAILY ORAL 09/24/19 09:00 12/22/19 08:59 09/25/19 08:29 Folic Acid (Folate) 1 mg DAILY ORAL 09/24/19 09:00 10/24/19 08:59 09/25/19 08:29 Gabapentin (Neurontin) 300 mg THREE TIMES A DAY ORAL 09/24/19 09:00 10/22/19 08:59 09/25/19 13:00 Metoprolol Tartrate (Lopressor) 50 mg EVERY 12 HOURS ORAL 09/24/19 21:00 12/20/19 20:59 09/25/19 08:29 Ondansetron HCl (Zofran) 4 mg Q6H PRN IVP Nausea & Vomiting 09/24/19 01:15 10/21/19 19:14 Zolpidem Tartrate (Ambien) 5 mg HSPRN PRN ORAL Insomnia 09/24/19 01:04 09/28/19 01:03 Allergies: Coded Allergies: No Known Allergies (Unverified , 04/24/18) Subjective Awake, alert, responsive, No chest pain or SOB, Feeling "better" No nauseas or vomiting, Hgb: 8.6. Objective Last Vital Signs Date Time Temp Pulse Resp B/P (MAP) Pulse Ox O2 Delivery O2 Flow Rate FiO2 09/25/19 12:00 98.0 69 18 118/61 (80) 93 09/25/19 09:00 Nasal Cannula 2.0 09/25/19 06:42 21 Laboratory Tests Test 09/25/19 05:27 White Blood Count 4.6 K/UL (4.8-10.8) L Red Blood Count 3.06 M/UL (4.20-5.40) L Hemoglobin 8.8 G/DL (12.0-16.0) L Hematocrit 26.9 % (37.0-47.0) L Mean Corpuscular Volume 88 FL (80-99) Mean Corpuscular Hemoglobin 28.7 PG (27.0-31.0) Mean Corpuscular Hemoglobin Concent 32.7 G/DL (32.0-36.0) Red Cell Distribution Width 19.8 % (11.6-14.8) H Platelet Count 153 K/UL (150-450) Mean Platelet Volume 9.7 FL (6.5-10.1) Neutrophils (%) (Auto) 70.9 % (45.0-75.0) Lymphocytes (%) (Auto) 20.3 % (20.0-45.0) Monocytes (%) (Auto) 3.2 % (1.0-10.0) Eosinophils (%) (Auto) 0.8 % (0.0-3.0) Basophils (%) (Auto) 4.8 % (0.0-2.0) H Sodium Level 139 MMOL/L (136-145) Potassium Level 4.1 MMOL/L (3.5-5.1) Chloride Level 105 MMOL/L (98-107) Carbon Dioxide Level 26 MMOL/L (21-32) Anion Gap 8 mmol/L (5-15) Blood Urea Nitrogen 18 mg/dL (7-18) Creatinine 0.9 MG/DL (0.55-1.30) Estimat Glomerular Filtration Rate > 60 mL/min (>60) Glucose Level 92 MG/DL (74-106) Calcium Level 8.6 MG/DL (8.5-10.1) Iron Level 92 ug/dL (50-175) Total Iron Binding Capacity 136 ug/dL (250-450) L Percent Iron Saturation 68 % (15-50) H Unsaturated Iron Binding 44 ug/dL (112-346) L Ferritin 703 NG/ML (8-388) H Vitamin B12 Level 1033 PG/ML (193-986) H Folate 42.8 NG/ML (8.6-58.9) Intake and Output 09/24/19 09/25/19 19:00 07:00 Intake Total 300 ml 360 ml Output Total 3 ml Balance 300 ml 357 ml Intake Oral 300 ml Other 360 ml Output Urine Total 3 ml # Voids 2 Objective General: No acute distress, awake and alert, Cachexia. HEENT: NCAT, sclera anicteric, PERRL, EOMI. Neck: Supple, no significant jugular venous distention, Lungs: Fair inspiratory effort, clear to auscultation bilaterally, no Wheeze or Rales. Heart: Regular rate and rhythm, normal S1/S2, no murmurs/gallops Abdomen: soft, nontender, nondistended. Normoactive bowel sounds. / Rectal: Refused and deferred. Extremities: No Cyanosis , clubbing or edema. Neuro: A&O x 3, Able to move all extremities Skin: warm, no rashes or lesions Psych: Normal mood and affect Assessment/Plan Assessment/Plan ASSESSMENT: This is an 79-year-old female. 1. Generalized weakness. 2. Severe anemia (Multifactorial). 3. Chronic atrial fibrillation. 4. Polycythemia vera. 5. History of cerebrovascular accident/transient ischemic attack. 6. Obstructive sleep apnea. 7. Coronary artery disease. 8. Hypercholesterolemia. 9. Congestive heart failure. 10. History of sick sinus syndrome. 11. History of right hemothorax. 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 TREATMENT: 1. Generalized weakness. This is probably secondary to severe anemia as below. 2. Severe anemia-macrocytic anemia Reason for anemia is unknown. ?polycythemia vera and bone marrow suppression? A hematology consultation has been obtained with Dr Kaplan. The patient is S/P transfusion 4 units of packed RBCs. Follow Hgb. A GI consultation has been obtained with Dr Kaiser. Patient refused colonoscopy 3. Polycythemia vera, as above. 4. Chronic atrial fibrillation/coronary artery disease. A cardiology consultation has been obtained with Dr. Freitas. 5. Sick sinus syndrome. The patient is status post pacemaker implantation. Await pacemaker interrogation 6. Hypercholesterolemia. 7. History of congestive heart failure. 8. History of right hemothorax, status post VATS procedure. 9. Await colonoscopy 10. Patient Refused ultrasound Code status: Full Code DVT prophylaxis: SCD Discuss with daughter over the phone. Antonio Adrian MD Sep 25, 2019 13:48
--- NOTE | 2019-09-25 13:49 | NUR ---
CASE MANAGEMENT:REVIEW SI;SEVERE ANEMIA. A-FIB. RT PLEURAL EFFUSION. 98.9 69 20 104/59 92% 2L NC WBC 4.6 H/H 8.8/26.9 TIBC 136 UNSAT IRON BINDING 44 FERRITIN 703 IS;LOPRESSOR PO Q12 AMIODARONE PO QD DIGOXIN PO QD MED SURG STATUS DCP; FROM HOME
--- NOTE | 2019-09-25 13:55 | Pulmonology Progress Note ---
Subjective ROS Limited/Unobtainable: No Constitutional: Reports: no symptoms HEENT: Repors: no symptoms Respiratory: Reports: no symptoms Allergies: Coded Allergies: No Known Allergies (Unverified , 04/24/18) Objective Last 24 Hour Vital Signs Date Time Temp Pulse Resp B/P (MAP) Pulse Ox O2 Delivery O2 Flow Rate FiO2 09/25/19 12:00 98.0 69 18 118/61 (80) 93 09/25/19 09:00 Nasal Cannula 2.0 09/25/19 08:29 64 110/59 09/25/19 08:29 64 09/25/19 08:00 98.9 64 17 110/59 (76) 92 09/25/19 06:42 95 Room Air 21 09/25/19 04:00 97.0 60 20 104/59 (74) 92 09/25/19 00:00 97.3 61 20 115/63 (80) 93 09/24/19 21:00 Nasal Cannula 2.0 09/24/19 20:54 68 109/71 09/24/19 20:00 96.8 61 20 102/61 (75) 91 09/24/19 19:46 97 Nasal Cannula 2.0 28 09/24/19 16:00 97.5 61 17 118/61 (80) 96 Intake and Output 09/24/19 09/25/19 19:00 07:00 Intake Total 300 ml 360 ml Output Total 3 ml Balance 300 ml 357 ml Intake Oral 300 ml Other 360 ml Output Urine Total 3 ml # Voids 2 General Appearance: cachetic HEENT: normocephalic, atraumatic Respiratory: chest wall non-tender, lungs clear Cardiovascular: normal peripheral pulses, normal rate Abdomen: normal bowel sounds, soft, non tender, no organomegaly Genitourinary: normal external genitalia Skin: no rash 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 Lymphatic: no neck adenopathy Laboratory Tests 09/25/19 05:27: White Blood Count 4.6L, Red Blood Count 3.06L, Hemoglobin 8.8L, Hematocrit 26.9L , Mean Corpuscular Volume 88, Mean Corpuscular Hemoglobin 28.7, Mean Corpuscular Hemoglobin Concent 32.7, Red Cell Distribution Width 19.8H, Platelet Count 153, Mean Platelet Volume 9.7, Neutrophils (%) (Auto) 70.9, Lymphocytes (%) (Auto) 20.3, Monocytes (%) (Auto) 3.2, Eosinophils (%) (Auto) 0.8, Basophils (%) (Auto) 4.8H, Sodium Level 139, Potassium Level 4.1, Chloride Level 105, Carbon Dioxide Level 26, Anion Gap 8, Blood Urea Nitrogen 18, Creatinine 0.9, Estimat Glomerular Filtration Rate > 60, Glucose Level 92, Calcium Level 8.6, Iron Level 92, Total Iron Binding Capacity 136L, Percent Iron Saturation 68H, Unsaturated Iron Binding 44L, Ferritin 703H, Vitamin B12 Level 1033H, Folate 42.8 Current Medications Medications (Trade) Dose Ordered Sig/Escobar Route PRN Reason Start Time Stop Time Status Last Admin Dose Admin Acetaminophen (Tylenol) 650 mg Q4H PRN ORAL T>100.5 09/24/19 01:03 10/21/19 01:02 Amiodarone HCl (Cordarone) 200 mg DAILY ORAL 09/24/19 09:00 12/21/19 08:59 09/25/19 08:28 Digoxin (Lanoxin) 0.125 mg DAILY ORAL 09/24/19 09:00 12/22/19 08:59 09/25/19 08:29 Folic Acid (Folate) 1 mg DAILY ORAL 09/24/19 09:00 10/24/19 08:59 09/25/19 08:29 Gabapentin (Neurontin) 300 mg THREE TIMES A DAY ORAL 09/24/19 09:00 10/22/19 08:59 09/25/19 13:00 Metoprolol Tartrate (Lopressor) 50 mg EVERY 12 HOURS ORAL 09/24/19 21:00 12/20/19 20:59 09/25/19 08:29 Ondansetron HCl (Zofran) 4 mg Q6H PRN IVP Nausea & Vomiting 09/24/19 01:15 10/21/19 19:14 Zolpidem Tartrate (Ambien) 5 mg HSPRN PRN ORAL Insomnia 09/24/19 01:04 09/28/19 01:03 Assessment/Plan Problems: (1) Anemia (2) 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 f/u GI recommendations symptomatic treatment trial of Epogen Kelly Mejia MD Sep 25, 2019 13:55
--- NOTE | 2019-09-25 14:05 | Surgery Progress Note ---
Surgery Progress Note Subjective Symptoms: improved, pain absent, tolerating diet, voiding well, passing flatus , BM Objective Last 24 Hour Vital Signs Date Time Temp Pulse Resp B/P (MAP) Pulse Ox O2 Delivery O2 Flow Rate FiO2 09/25/19 12:00 98.0 69 18 118/61 (80) 93 09/25/19 09:00 Nasal Cannula 2.0 09/25/19 08:29 64 110/59 09/25/19 08:29 64 09/25/19 08:00 98.9 64 17 110/59 (76) 92 09/25/19 06:42 95 Room Air 21 09/25/19 04:00 97.0 60 20 104/59 (74) 92 09/25/19 00:00 97.3 61 20 115/63 (80) 93 09/24/19 21:00 Nasal Cannula 2.0 09/24/19 20:54 68 109/71 09/24/19 20:00 96.8 61 20 102/61 (75) 91 09/24/19 19:46 97 Nasal Cannula 2.0 28 09/24/19 16:00 97.5 61 17 118/61 (80) 96 I&O Intake and Output 09/24/19 09/25/19 19:00 07:00 Intake Total 300 ml 360 ml Output Total 3 ml Balance 300 ml 357 ml Intake Oral 300 ml Other 360 ml Output Urine Total 3 ml # Voids 2 Dressing: dry Wound: clean Cardiovascular: RSR Respiratory: clear, decreased breath sounds Abdomen: soft, non-tender, present bowel sounds Extremities: no edema, no tenderness, no cyanosis Laboratory Tests Test 09/25/19 05:27 White Blood Count 4.6 K/UL (4.8-10.8) L Red Blood Count 3.06 M/UL (4.20-5.40) L Hemoglobin 8.8 G/DL (12.0-16.0) L Hematocrit 26.9 % (37.0-47.0) L Mean Corpuscular Volume 88 FL (80-99) Mean Corpuscular Hemoglobin 28.7 PG (27.0-31.0) Mean Corpuscular Hemoglobin Concent 32.7 G/DL (32.0-36.0) Red Cell Distribution Width 19.8 % (11.6-14.8) H Platelet Count 153 K/UL (150-450) Mean Platelet Volume 9.7 FL (6.5-10.1) Neutrophils (%) (Auto) 70.9 % (45.0-75.0) Lymphocytes (%) (Auto) 20.3 % (20.0-45.0) Monocytes (%) (Auto) 3.2 % (1.0-10.0) Eosinophils (%) (Auto) 0.8 % (0.0-3.0) Basophils (%) (Auto) 4.8 % (0.0-2.0) H Sodium Level 139 MMOL/L (136-145) Potassium Level 4.1 MMOL/L (3.5-5.1) Chloride Level 105 MMOL/L (98-107) Carbon Dioxide Level 26 MMOL/L (21-32) Anion Gap 8 mmol/L (5-15) Blood Urea Nitrogen 18 mg/dL (7-18) Creatinine 0.9 MG/DL (0.55-1.30) Estimat Glomerular Filtration Rate > 60 mL/min (>60) Glucose Level 92 MG/DL (74-106) Calcium Level 8.6 MG/DL (8.5-10.1) Iron Level 92 ug/dL (50-175) Total Iron Binding Capacity 136 ug/dL (250-450) L Percent Iron Saturation 68 % (15-50) H Unsaturated Iron Binding 44 ug/dL (112-346) L Ferritin 703 NG/ML (8-388) H Vitamin B12 Level 1033 PG/ML (193-986) H Folate 42.8 NG/ML (8.6-58.9) Plan Problems: (1) ACS (acute coronary syndrome) (2) Pyelonephritis (3) CAD (coronary artery disease) (4) COPD (chronic obstructive pulmonary disease) (5) positional vertigo (6) KELVIN (obstructive sleep apnea) (7) Peripheral neuropathy (8) Myelofibrosis (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 hx of bleeding held anticoagulation since prior right hemothorax s/p evacuation and vats transfusing prbc coags noted may need ffp ddx includes possible GI hemorrhage. protonix ordered pending GI eval consider scope CT once stable US abd ordered thank you will follow with recs trend h/h transfuse prn Gallbladder demonstrates a gallstone. This also reported on same day CT. Sonographic Camacho's sign is negative. Common bile duct measures 5 mm in diameter. No intrahepatic biliary ductal dilatation. Liver demonstrates normal echogenicity, no focal abnormality. Portal vein and hepatic veins are patent. Pancreas is unremarkable. The spleen demonstrates a complex upper pole cyst that measures 2.7 cm in diameter. The spleen is borderline enlarged. There are bilateral pleural effusions Left kidney measures 10.2 cm in length. Right kidney measures 9.2 cm length. Both kidneys demonstrate normal echogenicity. There is no hydronephrosis. No focal abnormality . Non-aneurysmal abdominal aorta . Impression: Cholelithiasis. Negative for dilated bile ducts 2.7 cm complex upper pole splenic cyst, also reported on prior imaging studies. Bilateral pleural effusions Chest: The lungs demonstrate a mosaic perfusion pattern, which is more striking than that seen previously. Some atelectasis and consolidation is seen involving both lower lobes. This appears similar on the right, slightly more extensive on the left. There is a moderate-sized right pleural effusion which appears similar to the previous study. There is a small left pleural effusion which is new since the previous study. Previous exam demonstrated a 1.5 cm opacity in the inferior right azygoesophageal recess. This is not evident currently although could be obscured by surrounding atelectatic lung. The heart is enlarged. There is a left chest pacemaker again demonstrated. No pericardial effusion. No mediastinal or hilar mass or adenopathy. Right lower pole thyroid calcification is again demonstrated. No axillary or chest wall mass or adenopathy. There are fairly profound degenerative changes of the bilateral shoulders. There is evidence of interim healing of previously demonstrated right rib fractures, nearly but not completely healed as some fracture lines persist. There are degenerative changes of the thoracic spine noted. Abdomen pelvis: What is probably a normal appendix is demonstrated. There is extensive colonic diverticulosis. No evidence of diverticulitis. The rectum is mildly distended, mostly with gas with some stool as well. No small bowel distention or small bowel wall thickening. Numerous surgical clips are seen in the retroperitoneum and left side of the pelvis. The stomach and duodenum are unremarkable. The gallbladder contains a gallstone. No biliary ductal dilatation. The liver is mildly enlarged. The pancreas is unremarkable. The spleen is enlarged, measuring 14 cm long axis dimension. It demonstrates a complex upper pole cyst, also previously demonstrated the adrenals and kidneys are unremarkable. There is a retroaortic left renal vein incidentally noted. The uterus is absent.. The bladder is unremarkable. The bones demonstrate degenerative spondylosis changes. IMPRESSION: Cardiomegaly Unchanged moderate right pleural effusion, since June 2019. New small left pleural effusion Bilateral mosaic perfusion pattern, probably on the basis of pulmonary edema Bilateral basilar compressive atelectasis and possible consolidation Interim healing of previously demonstrated right rib fractures Previously demonstrated right azygoesophageal recess lesion is no longer evident , may have resolved or may be obscured by surrounding lung parenchyma. Cholelithiasis Hepatomegaly Splenomegaly Splenic cystic lesion, unchanged from prior exam Postsurgical changes as described, including pacemaker, evidence of prior hysterectomy, evidence of prior pelvic lymph node dissection, prior hysterectomy Errol Estrada Sep 25, 2019 14:05
[2019-09-25 16:00] VITALS: BP 120/63
--- NOTE | 2019-09-25 19:21 | NUR ---
NURSE HAND-OFF: Important Events on Shift: No significant events noted Patient Status: Stable Diet: Regular soft easy chew Pending Orders: None Pending Results/Labs:None Pending MD notification: None Latest Vital Signs: Temperature 98.4 , Pulse 69 , B/P 120 /63 , Respiratory Rate 18 , O2 SAT 93 , Nasal Cannula, O2 Flow Rate 2.0 . Vital Sign Comment: None Latest Yepez Fall Score: 60 Fall Risk: High Risk Safety Measures: Call light Within Reach, Bed Alarm Zone 1, Side Rails Side Rails x2, Bed position Low and Locked. Fall Precautions: Yellow Socks Yellow Gown Door Sign Patient Fall Education Report given to Alma ROTH.
--- NOTE | 2019-09-25 19:47 | NUR ---
NURSE NOTES: Received report from IRA Josue. AAO x 4, on NC2l. Need clinical services assistant for using bedside commode. IV site intack and patent. Need to collect OB stool. Bed locked, lowest position, alarm on, side rails up, call light within reach. Will continue to monitor.
[2019-09-25 20:00] VITALS: BP 96/56
[2019-09-26] VITALS: BP 102/58
[2019-09-26 04:00] VITALS: BP 108/56
--- NOTE | 2019-09-26 06:09 | NUR ---
NURSE HAND-OFF: Important Events on Shift:high fall risk Patient Status: stable Diet: reg, soft easy chew Pending Orders: 2nd and 3rd OB stool collection Pending Results/Labs:N Pending MD notification:N Latest Vital Signs: Temperature 96.6 , Pulse 61 , B/P 108 /56 , Respiratory Rate 18 , O2 SAT 96 , Nasal Cannula, O2 Flow Rate 2.0 . Vital Sign Comment: N Latest Yepez Fall Score: 60 Fall Risk: High Risk Safety Measures: Call light Within Reach, Bed Alarm Zone 1, Side Rails Side Rails x2, Bed position Low and Locked. Fall Precautions: Yellow Socks Yellow Gown Door Sign Patient Fall Education Addendum: 09/26/19 at 0744 by CYNTHIA LILLY RN RN HAND-OFF: Report given to IRA Morris.
--- NOTE | 2019-09-26 07:54 | NUR ---
NURSE NOTES: Received report from IRA Marquez. Patient received awake in bed, alert and oriented x 3, no SOB, bed in lowest position with breaks engaged and alarm on, denies any discomfort at this time, on room air, IV line present and intact, will continue to monitor and proceed with plan of care, call light within reach.
[2019-09-26 07:56] LABS: BASOPHILS % (AUTO) 4.7 % (0.0-2.0); EOSINOPHILS % (AUTO) 0.9 % (0.0-3.0); HEMATOCRIT 26.1 % (37.0-47.0); HEMOGLOBIN 8.4 G/DL (12.0-16.0); LYMPHOCYTES % (AUTO) 24.5 % (20.0-45.0); MEAN CORPUSCULAR VOLUME 89 FL (80-99); MONOCYTES % (AUTO) 3.3 % (1.0-10.0); NEUTROPHILS % (AUTO) 66.6 % (45.0-75.0); PLATELET COUNT 144 K/UL (150-450); RED BLOOD COUNT 2.92 M/UL (4.20-5.40); RED CELL DISTRIBUTION WIDTH 19.1 % (11.6-14.8); WHITE BLOOD COUNT 3.9 K/UL (4.8-10.8)
[2019-09-26 08:00] VITALS: BP 100/55
--- NOTE | 2019-09-26 08:27 | Hematology/Onc Progress Note ---
Assessment/Plan Assessment/Plan ASSESSMENT AND RECOMMENDATIONS # Polycythemia vera, JAK2+++. In prior was on hydroxyurea --> obtain jak2 level--> was detected -> consider outpatient hydrea when h/h better --> imaging abd us ordered - Splenomegaly. 3 cm cyst within the spleen probably complex with at least one or 2 septations. Trace right pleural effusion. Gallbladder sludge versus stones. --> likely will need better titration of hydrea on discharged # Pancytopenia now with initially with anemia of chronic disease due to underlying chronic medical issues, multifactorial, also due to polycythemia vera , hgb 5 on admission --> Anemia workup has been ordered, rule out gi bleed - results noted and cw acd --> No evidence of hemolysis is noted, peripheral smear has been reviewed. --> Hgb goal >7. Transfuse prn --> S/P IV iron x 5 days 08/06/18 --> Medications have been reviewed --> low threshold for gi evaluation in case has occult --> Hgb trend:4.8-->5.1-->9-->8.9 --> Patient received an EGD by GI at that time that showed gastritis. No varices # Vertigo. --> per neuro as needed # Atrial fibrillation with rapid ventricular rate. --> Serial troponin levels will be performeD prior and neg --> started on amio for rapid ventricular rate. --> per cards # Hypertension. Cont on clonidine # Obstructive sleep apnea. # Coronary artery disease. # Hypercholesteremia. # Congestive heart failure. # Dvt ppx scds The time the the note is entered does not reflect the time the patient was examined. I greatly appreciate the consultation. Subjective Cardiovascular: Denies: no symptoms, chest pain, edema, irregular heart rate, lightheadedness, palpitations, syncope, other Gastrointestinal/Abdominal: Denies: no symptoms, abdomen distended, abdominal pain, black stools, tarry stools, blood in stool, constipated, diarrhea, difficulty swallowing, nausea, poor appetite, poor fluid intake, rectal bleeding , vomiting, other Genitourinary: Denies: no symptoms, burning, discharge, frequency, flank pain, hematuria, incontinence, pain, urgency, other Neurologic/Psychiatric: Denies: no symptoms, anxiety, depressed, emotional problems, headache, numbness, paresthesia, pre-existing deficit, seizure, tingling, tremors, weakness, other Endocrine: Denies: no symptoms, excessive sweating, flushing, intolerance to cold, intolerance to heat, increased hunger, increased thirst, increased urine, unexplained weight gain, unexplained weight loss, other Hematologic/Lymphatic: Denies: no symptoms, anemia, easy bleeding, easy bruising, adenopathy, other Allergies: Coded Allergies: No Known Allergies (Unverified , 04/24/18) Subjective 09/25 no major events, no bleeding, labs noted, no night sweats, hgb 8.4, wbc 3.9 Objective Objective Current Medications Medications (Trade) Dose Ordered Sig/Escobar Route PRN Reason Start Time Stop Time Status Last Admin Dose Admin Acetaminophen (Tylenol) 650 mg Q4H PRN ORAL T>100.5 09/24/19 01:03 10/21/19 01:02 Amiodarone HCl (Cordarone) 200 mg DAILY ORAL 09/24/19 09:00 12/21/19 08:59 09/25/19 08:28 Digoxin (Lanoxin) 0.125 mg DAILY ORAL 09/24/19 09:00 12/22/19 08:59 09/25/19 08:29 Folic Acid (Folate) 1 mg DAILY ORAL 09/24/19 09:00 10/24/19 08:59 09/25/19 08:29 Gabapentin (Neurontin) 300 mg THREE TIMES A DAY ORAL 09/24/19 09:00 10/22/19 08:59 09/25/19 17:59 Metoprolol Tartrate (Lopressor) 50 mg EVERY 12 HOURS ORAL 09/24/19 21:00 12/20/19 20:59 09/25/19 08:29 Ondansetron HCl (Zofran) 4 mg Q6H PRN IVP Nausea & Vomiting 09/24/19 01:15 10/21/19 19:14 Zolpidem Tartrate (Ambien) 5 mg HSPRN PRN ORAL Insomnia 09/24/19 01:04 09/28/19 01:03 Last 24 Hour Vital Signs Date Time Temp Pulse Resp B/P (MAP) Pulse Ox O2 Delivery O2 Flow Rate FiO2 09/26/19 08:00 96.9 64 17 100/55 (70) 92 09/26/19 04:00 96.6 61 18 108/56 (73) 96 09/26/19 00:00 97.5 62 18 102/58 (73) 94 09/25/19 21:00 Nasal Cannula 2.0 09/25/19 20:34 61 96/56 09/25/19 20:00 97.2 61 18 96/56 (69) 98 09/25/19 19:10 98 Nasal Cannula 2.0 28 09/25/19 16:00 98.4 69 18 120/63 (82) 93 09/25/19 12:00 98.0 69 18 118/61 (80) 93 09/25/19 09:00 Nasal Cannula 2.0 09/25/19 08:29 64 110/59 09/25/19 08:29 64 09/25/19 08:00 98.9 64 17 110/59 (76) 92 09/25/19 06:42 95 Room Air 21 09/25/19 04:00 97.0 60 20 104/59 (74) 92 09/25/19 00:00 97.3 61 20 115/63 (80) 93 09/24/19 21:00 Nasal Cannula 2.0 09/24/19 20:54 68 109/71 09/24/19 20:00 96.8 61 20 102/61 (75) 91 09/24/19 19:46 97 Nasal Cannula 2.0 28 09/24/19 16:00 97.5 61 17 118/61 (80) 96 09/24/19 12:00 98.1 71 17 110/59 (76) 95 09/24/19 09:10 61 102/57 09/24/19 09:01 61 09/24/19 09:00 Nasal Cannula 2.0 Intake and Output 09/25/19 09/26/19 19:00 07:00 Intake Total 300 ml Balance 300 ml Intake Oral 300 ml # Voids 4 4 Labs Test 09/23/19 17:50 09/24/19 05:40 09/24/19 11:05 09/25/19 05:27 Stool Occult Blood Negative (NEGATIVE) White Blood Count 5.4 K/UL (4.8-10.8) 4.6 K/UL (4.8-10.8) Red Blood Count 3.17 M/UL (4.20-5.40) 3.06 M/UL (4.20-5.40) Hemoglobin 9.1 G/DL (12.0-16.0) 8.8 G/DL (12.0-16.0) Hematocrit 28.2 % (37.0-47.0) 26.9 % (37.0-47.0) Mean Corpuscular Volume 89 FL (80-99) 88 FL (80-99) Mean Corpuscular Hemoglobin 28.7 PG (27.0-31.0) 28.7 PG (27.0-31.0) Mean Corpuscular Hemoglobin Concent 32.3 G/DL (32.0-36.0) 32.7 G/DL (32.0-36.0) Red Cell Distribution Width 21.2 % (11.6-14.8) 19.8 % (11.6-14.8) Platelet Count 152 K/UL (150-450) 153 K/UL (150-450) Mean Platelet Volume 10.8 FL (6.5-10.1) 9.7 FL (6.5-10.1) Neutrophils (%) (Auto) 77.8 % (45.0-75.0) 70.9 % (45.0-75.0) Lymphocytes (%) (Auto) 14.6 % (20.0-45.0) 20.3 % (20.0-45.0) Monocytes (%) (Auto) 3.1 % (1.0-10.0) 3.2 % (1.0-10.0) Eosinophils (%) (Auto) 0.8 % (0.0-3.0) 0.8 % (0.0-3.0) Basophils (%) (Auto) 3.8 % (0.0-2.0) 4.8 % (0.0-2.0) Prothrombin Time 12.8 SEC (9.30-11.50) Prothromb Time International Ratio 1.2 (0.9-1.1) Sodium Level 138 MMOL/L (136-145) 139 MMOL/L (136-145) Potassium Level 4.1 MMOL/L (3.5-5.1) 4.1 MMOL/L (3.5-5.1) Chloride Level 107 MMOL/L (98-107) 105 MMOL/L (98-107) Carbon Dioxide Level 24 MMOL/L (21-32) 26 MMOL/L (21-32) Anion Gap 7 mmol/L (5-15) 8 mmol/L (5-15) Blood Urea Nitrogen 20 mg/dL (7-18) 18 mg/dL (7-18) Creatinine 0.8 MG/DL (0.55-1.30) 0.9 MG/DL (0.55-1.30) Estimat Glomerular Filtration Rate > 60 mL/min (>60) > 60 mL/min (>60) Glucose Level 95 MG/DL (74-106) 92 MG/DL (74-106) Calcium Level 8.5 MG/DL (8.5-10.1) 8.6 MG/DL (8.5-10.1) POC Whole Blood Glucose 83 MG/DL (74-106) Iron Level 92 ug/dL (50-175) Total Iron Binding Capacity 136 ug/dL (250-450) Percent Iron Saturation 68 % (15-50) Unsaturated Iron Binding 44 ug/dL (112-346) Ferritin 703 NG/ML (8-388) Vitamin B12 Level 1033 PG/ML (193-986) Folate 42.8 NG/ML (8.6-58.9) Test 09/26/19 06:59 White Blood Count 3.9 K/UL (4.8-10.8) Red Blood Count 2.92 M/UL (4.20-5.40) Hemoglobin 8.4 G/DL (12.0-16.0) Hematocrit 26.1 % (37.0-47.0) Mean Corpuscular Volume 89 FL (80-99) Mean Corpuscular Hemoglobin 28.6 PG (27.0-31.0) Mean Corpuscular Hemoglobin Concent 32.1 G/DL (32.0-36.0) Red Cell Distribution Width 19.1 % (11.6-14.8) Platelet Count 144 K/UL (150-450) Mean Platelet Volume 10.6 FL (6.5-10.1) Neutrophils (%) (Auto) 66.6 % (45.0-75.0) Lymphocytes (%) (Auto) 24.5 % (20.0-45.0) Monocytes (%) (Auto) 3.3 % (1.0-10.0) Eosinophils (%) (Auto) 0.9 % (0.0-3.0) Basophils (%) (Auto) 4.7 % (0.0-2.0) Height (Feet): 5 Height (Inches): 1.00 Weight (Pounds): 116 Objective Physical Exam: GENERAL: Awake_alert_ nontoxic, no acute distress EYES: Extraocular muscles are intact. Conjunctivae clear ENT: External nose and ear normal_in_appearance. NECK: No JVD. No meningismus. No thyromegaly. RESP: Normal respiratory effort. Symmetric rise. CARDIAC: Regular rate and regular rhythm on_auscultation ABDOMEN: Soft. Nondistended. Nontender MSK: Normal muscle tone, without rigidity. SKIN: Warm and dry. No visible cyanosis NEUROLOGIC: Alert, oriented x3. Psych: Normal mood and affect Best Kaplan MD Sep 26, 2019 08:27
[2019-09-26] MEDS: Amiodarone 200mg tab ORAL SCH (08:52)
[2019-09-26] MEDS: Digoxin 0.125mg tab ORAL SCH (08:53)
[2019-09-26] MEDS: Metoprolol Tartrate 50mg tab ORAL SCH ×4 (08:53→21:55)
[2019-09-26 08:55] LABS: ANION GAP 6 mmol/L (5-15); BLOOD UREA NITROGEN 17 mg/dL (7-18); CALCIUM 8.5 MG/DL (8.5-10.1); CARBON DIOXIDE 27 MMOL/L (21-32); CHLORIDE 106 MMOL/L (98-107); CREATININE 0.9 MG/DL (0.55-1.30); POTASSIUM 4.1 MMOL/L (3.5-5.1); SODIUM 139 MMOL/L (136-145)
[2019-09-26 12:00] VITALS: BP 102/66
--- NOTE | 2019-09-26 12:10 | Pulmonology Progress Note ---
Subjective ROS Limited/Unobtainable: No Constitutional: Reports: no symptoms HEENT: Repors: no symptoms Respiratory: Reports: no symptoms Allergies: Coded Allergies: No Known Allergies (Unverified , 04/24/18) Subjective afebrile, no signs of resp distress pulse ox stable on o2 via NC remains afebrile, no leukocytosis Hgb 8.4 this am Objective Last 24 Hour Vital Signs Date Time Temp Pulse Resp B/P (MAP) Pulse Ox O2 Delivery O2 Flow Rate FiO2 09/26/19 09:00 Nasal Cannula 2.0 09/26/19 08:58 62 97/60 09/26/19 08:53 64 09/26/19 08:00 96.9 64 17 100/55 (70) 92 09/26/19 04:00 96.6 61 18 108/56 (73) 96 09/26/19 00:00 97.5 62 18 102/58 (73) 94 09/25/19 21:00 Nasal Cannula 2.0 09/25/19 20:34 61 96/56 09/25/19 20:00 97.2 61 18 96/56 (69) 98 09/25/19 19:10 98 Nasal Cannula 2.0 28 09/25/19 16:00 98.4 69 18 120/63 (82) 93 Intake and Output 09/25/19 09/26/19 19:00 07:00 Intake Total 300 ml Balance 300 ml Intake Oral 300 ml # Voids 4 4 General Appearance: no acute distress, cachetic - Senegalese speaking female HEENT: normocephalic, atraumatic Respiratory: chest wall non-tender, lungs clear, no respiratory distress, no accessory muscle use Cardiovascular: normal peripheral pulses, normal rate Abdomen: normal bowel sounds, soft, non tender Skin: no rash, other - posterior and lateral right chest healed scar 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, alert, responsive Lymphatic: no neck adenopathy Musculoskeletal: atrophy - BLE Laboratory Tests 09/26/19 06:59: White Blood Count 3.9L, Red Blood Count 2.92L, Hemoglobin 8.4L, Hematocrit 26.1L , Mean Corpuscular Volume 89, Mean Corpuscular Hemoglobin 28.6, Mean Corpuscular Hemoglobin Concent 32.1, Red Cell Distribution Width 19.1H, Platelet Count 144L, Mean Platelet Volume 10.6H, Neutrophils (%) (Auto) 66.6, Lymphocytes (%) (Auto) 24.5, Monocytes (%) (Auto) 3.3, Eosinophils (%) (Auto) 0.9, Basophils (%) (Auto) 4.7H, Sodium Level 139, Potassium Level 4.1, Chloride Level 106, Carbon Dioxide Level 27, Anion Gap 6, Blood Urea Nitrogen 17, Creatinine 0.9, Estimat Glomerular Filtration Rate > 60, Glucose Level 86, Calcium Level 8.5, HIV (1&2) Antibody Rapid Negative Current Medications Medications (Trade) Dose Ordered Sig/Escobar Route PRN Reason Start Time Stop Time Status Last Admin Dose Admin Acetaminophen (Tylenol) 650 mg Q4H PRN ORAL T>100.5 09/24/19 01:03 10/21/19 01:02 Amiodarone HCl (Cordarone) 200 mg DAILY ORAL 09/24/19 09:00 12/21/19 08:59 09/26/19 08:52 Digoxin (Lanoxin) 0.125 mg DAILY ORAL 09/24/19 09:00 12/22/19 08:59 09/26/19 08:53 Folic Acid (Folate) 1 mg DAILY ORAL 09/24/19 09:00 10/24/19 08:59 09/26/19 08:52 Gabapentin (Neurontin) 300 mg THREE TIMES A DAY ORAL 09/24/19 09:00 10/22/19 08:59 09/26/19 08:52 Metoprolol Tartrate (Lopressor) 50 mg EVERY 12 HOURS ORAL 09/24/19 21:00 12/20/19 20:59 09/25/19 08:29 Ondansetron HCl (Zofran) 4 mg Q6H PRN IVP Nausea & Vomiting 09/24/19 01:15 10/21/19 19:14 Zolpidem Tartrate (Ambien) 5 mg HSPRN PRN ORAL Insomnia 09/24/19 01:04 09/28/19 01:03 Assessment/Plan Assessment/Plan ASSESSMENT Severe anemia requiring blood transfusion Polycythemia vera History of VATS 2 to right hemothorax Moderate right pleural effusion Severe pulmonary hypertension KELVIN Paroxysmal atrial fibrillation CAD with history of [place] SSS , status post pacemaker Hypertension PLAN OF CARE MS floor O2 titrate to keep sat > 92% pulmonary toilet CT chest noted ; unchanged right pleural effusion rapid COVID 19 NGT s/p 4 units PRBC GI and heme follow anemia work-up noted monitor H&H with goal to keep Hgb > [address] abdomen and pelvis noted declined colonoscopy per heme prior was on hydroxyurea , and consider to restart JAK2 positive Protonix bid continue amiodarone ,beta-kelli and digoxin as per cardio recs off a/c 2 to anemia UCX + mixed GPO CT head negative supportive care case discussed and evaluated by supervising physician Cait Melchor NP Sep 26, 2019 12:10
--- NOTE | 2019-09-26 14:14 | Internal Med Progress Note ---
Subjective Date of Service: Sep 26, 2019 Physician Name Roshan Edwards Attending Physician Antonio Adrian MD Current Medications Medications (Trade) Dose Ordered Sig/Escobar Route PRN Reason Start Time Stop Time Status Last Admin Dose Admin Acetaminophen (Tylenol) 650 mg Q4H PRN ORAL T>100.5 09/24/19 01:03 10/21/19 01:02 Amiodarone HCl (Cordarone) 200 mg DAILY ORAL 09/24/19 09:00 12/21/19 08:59 09/26/19 08:52 Digoxin (Lanoxin) 0.125 mg DAILY ORAL 09/24/19 09:00 12/22/19 08:59 09/26/19 08:53 Folic Acid (Folate) 1 mg DAILY ORAL 09/24/19 09:00 10/24/19 08:59 09/26/19 08:52 Gabapentin (Neurontin) 300 mg THREE TIMES A DAY ORAL 09/24/19 09:00 10/22/19 08:59 09/26/19 12:50 Metoprolol Tartrate (Lopressor) 50 mg EVERY 12 HOURS ORAL 09/24/19 21:00 12/20/19 20:59 09/25/19 08:29 Ondansetron HCl (Zofran) 4 mg Q6H PRN IVP Nausea & Vomiting 09/24/19 01:15 10/21/19 19:14 Zolpidem Tartrate (Ambien) 5 mg HSPRN PRN ORAL Insomnia 09/24/19 01:04 09/28/19 01:03 Allergies: Coded Allergies: No Known Allergies (Unverified , 04/24/18) ROS Limited/Unobtainable: No Constitutional: Reports: no symptoms HEENT: Reports: no symptoms Cardiovascular: Reports: no symptoms Respiratory: Reports: no symptoms Gastrointestinal/Abdominal: Reports: no symptoms Genitourinary: Reports: no symptoms Neurologic/Psychiatric: Reports: no symptoms Subjective 79 YO F admitted with generalized weakness. Now severe anemia. Cover for Int med-Dr Adrian. Objective Last Vital Signs Date Time Temp Pulse Resp B/P (MAP) Pulse Ox O2 Delivery O2 Flow Rate FiO2 09/26/19 12:00 96.8 61 20 102/66 (78) 91 09/26/19 09:00 Nasal Cannula 2.0 09/25/19 19:10 28 Laboratory Tests Test 09/26/19 06:59 White Blood Count 3.9 K/UL (4.8-10.8) L Red Blood Count 2.92 M/UL (4.20-5.40) L Hemoglobin 8.4 G/DL (12.0-16.0) L Hematocrit 26.1 % (37.0-47.0) L Mean Corpuscular Volume 89 FL (80-99) Mean Corpuscular Hemoglobin 28.6 PG (27.0-31.0) Mean Corpuscular Hemoglobin Concent 32.1 G/DL (32.0-36.0) Red Cell Distribution Width 19.1 % (11.6-14.8) H Platelet Count 144 K/UL (150-450) L Mean Platelet Volume 10.6 FL (6.5-10.1) H Neutrophils (%) (Auto) 66.6 % (45.0-75.0) Lymphocytes (%) (Auto) 24.5 % (20.0-45.0) Monocytes (%) (Auto) 3.3 % (1.0-10.0) Eosinophils (%) (Auto) 0.9 % (0.0-3.0) Basophils (%) (Auto) 4.7 % (0.0-2.0) H Sodium Level 139 MMOL/L (136-145) Potassium Level 4.1 MMOL/L (3.5-5.1) Chloride Level 106 MMOL/L (98-107) Carbon Dioxide Level 27 MMOL/L (21-32) Anion Gap 6 mmol/L (5-15) Blood Urea Nitrogen 17 mg/dL (7-18) Creatinine 0.9 MG/DL (0.55-1.30) Estimat Glomerular Filtration Rate > 60 mL/min (>60) Glucose Level 86 MG/DL (74-106) Calcium Level 8.5 MG/DL (8.5-10.1) HIV (1&2) Antibody Rapid Negative (NEGATIVE) Intake and Output 09/25/19 09/26/19 19:00 07:00 Intake Total 300 ml Balance 300 ml Intake Oral 300 ml # Voids 4 4 Objective PHYSICAL EXAMINATION: GENERAL: The patient is a well-developed, well-nourished female, in no apparent distress. HEENT: Eyes, pupils equal and responsive to light and accommodation. Extraocular movements are intact. NECK: Supple without lymphadenopathy. CHEST: Lungs are clear to auscultation bilaterally without wheezes or rales. CARDIOVASCULAR: Regular rate. S1-S2 are normal without murmurs, rubs, or gallops. ABDOMEN: Soft, nontender, nondistended with positive bowel sounds. No evidence of hepatosplenomegaly. Currently no rebound or guarding noted. EXTREMITIES: Negative for clubbing, cyanosis, or edema. RECTAL/GENITAL: Not performed. NEUROLOGICAL: Cranial nerves II through XII are grossly intact without focal deficits. Motor strength is 5/5 bilaterally. Deep tendon reflexes are 2+, plantar. Assessment/Plan Assessment/Plan ASSESSMENT: This is an 79-year-old female. 1. Generalized weakness. 2. Severe anemia. 3. Chronic atrial fibrillation. 4. Polycythemia vera. 5. History of cerebrovascular accident/transient ischemic attack. 6. Obstructive sleep apnea. 7. Coronary artery disease. 8. Hypercholesterolemia. 9. Congestive heart failure. 10. History of sick sinus syndrome. 11. History of right hemothorax. 12. Protein calorie malnutrition TREATMENT: 1. Generalized weakness. This is probably secondary to severe anemia as below. 2. Severe anemia-macrocytic anemia A hematology consultation has been obtained with Dr Kaplan. The patient is S/P transfusion 4 units of packed RBCs. Follow Hgb. A GI consultation has been obtained with Dr Kaiser. Patient refused colonoscopy 3. Polycythemia vera, as above. 4. Chronic atrial fibrillation/coronary artery disease. A cardiology consultation has been obtained with Dr. Freitas. 5. Sick sinus syndrome. The patient is status post pacemaker implantation. Await pacemaker interrogation 6. Hypercholesterolemia. 7. History of congestive heart failure. 8. History of right hemothorax, status post VATS procedure. 9. Await colonoscopy 10. Patient Refused ultrasound 11. Discharge planning Roshan Edwards MD Sep 26, 2019 14:14
[2019-09-26 16:00] VITALS: BP 106/55
--- NOTE | 2019-09-26 16:51 | Cardiac Electrophysiology PN ---
Assessment/Plan Assessment/Plan 1. Weakness due to profound anemia, hemoglobin of 4.8. S/P four units of blood transfusion. GI workup for last two years had two endoscopies with last one in July 2018, which was negative for obvious GI bleeding. Stool OBs are negative. S/P ABD US, Chests CT . Refused Colonoscopy per Dr Kaiser 2. Status post [employer] pacemaker implantation by me in 2010 and generator change by me in 2018 with normal function by interrogation on last visit. 3. Paroxysmal atrial fibrillation with rapid ventricular response and atrially paced rhythm on amiodarone 200 mg daily, metoprolol 50 mg bid and digoxin 0.125 mg daily . Off anticoagulation for severe anemia requiring multiple blood transfusions in the past. 4. Hypertension, on metoprolol. 5. Urinary tract infection. 6. History of polycythemia vera. 7. Severe pulmonary hypertension with PA pressure of 71. 8. Hemothorax status post VATS by Dr. Malik in 07/2019. RILEY RN. Subjective Subjective More responsive today. No CP Objective Last 24 Hour Vital Signs Date Time Temp Pulse Resp B/P (MAP) Pulse Ox O2 Delivery O2 Flow Rate FiO2 09/26/19 16:00 98.9 64 17 106/55 (72) 92 09/26/19 12:00 96.8 61 20 102/66 (78) 91 09/26/19 09:00 62 97/60 09/26/19 09:00 Nasal Cannula 2.0 09/26/19 08:53 64 09/26/19 08:00 96.9 64 17 100/55 (70) 92 09/26/19 04:00 96.6 61 18 108/56 (73) 96 09/26/19 00:00 97.5 62 18 102/58 (73) 94 09/25/19 21:00 Nasal Cannula 2.0 09/25/19 20:34 61 96/56 09/25/19 20:00 97.2 61 18 96/56 (69) 98 09/25/19 19:10 98 Nasal Cannula 2.0 28 Intake and Output 09/25/19 09/26/19 19:00 07:00 Intake Total 300 ml Balance 300 ml Intake Oral 300 ml # Voids 4 4 Laboratory Tests Test 09/26/19 06:59 White Blood Count 3.9 K/UL (4.8-10.8) L Red Blood Count 2.92 M/UL (4.20-5.40) L Hemoglobin 8.4 G/DL (12.0-16.0) L Hematocrit 26.1 % (37.0-47.0) L Mean Corpuscular Volume 89 FL (80-99) Mean Corpuscular Hemoglobin 28.6 PG (27.0-31.0) Mean Corpuscular Hemoglobin Concent 32.1 G/DL (32.0-36.0) Red Cell Distribution Width 19.1 % (11.6-14.8) H Platelet Count 144 K/UL (150-450) L Mean Platelet Volume 10.6 FL (6.5-10.1) H Neutrophils (%) (Auto) 66.6 % (45.0-75.0) Lymphocytes (%) (Auto) 24.5 % (20.0-45.0) Monocytes (%) (Auto) 3.3 % (1.0-10.0) Eosinophils (%) (Auto) 0.9 % (0.0-3.0) Basophils (%) (Auto) 4.7 % (0.0-2.0) H Sodium Level 139 MMOL/L (136-145) Potassium Level 4.1 MMOL/L (3.5-5.1) Chloride Level 106 MMOL/L (98-107) Carbon Dioxide Level 27 MMOL/L (21-32) Anion Gap 6 mmol/L (5-15) Blood Urea Nitrogen 17 mg/dL (7-18) Creatinine 0.9 MG/DL (0.55-1.30) Estimat Glomerular Filtration Rate > 60 mL/min (>60) Glucose Level 86 MG/DL (74-106) Calcium Level 8.5 MG/DL (8.5-10.1) HIV (1&2) Antibody Rapid Negative (NEGATIVE) Objective HEAD AND NECK: No JVD or carotid bruits. Sclerae are very pale. LUNGS: Clear. CARDIOVASCULAR: Shows regular S1 and S2 with no gallop. Pacemaker in the left subclavian, healed. ABDOMEN: Soft. EXTREMITIES: No pitting edema. River Freitas MD Sep 26, 2019 16:51
--- NOTE | 2019-09-26 18:33 | Surgery Progress Note ---
Surgery Progress Note Subjective Symptoms: improved, tolerating diet, passing flatus, BM Objective Last 24 Hour Vital Signs Date Time Temp Pulse Resp B/P (MAP) Pulse Ox O2 Delivery O2 Flow Rate FiO2 09/26/19 16:00 98.9 64 17 106/55 (72) 92 09/26/19 12:00 96.8 61 20 102/66 (78) 91 09/26/19 09:00 62 97/60 09/26/19 09:00 Nasal Cannula 2.0 09/26/19 08:53 64 09/26/19 08:00 96.9 64 17 100/55 (70) 92 09/26/19 04:00 96.6 61 18 108/56 (73) 96 09/26/19 00:00 97.5 62 18 102/58 (73) 94 09/25/19 21:00 Nasal Cannula 2.0 09/25/19 20:34 61 96/56 09/25/19 20:00 97.2 61 18 96/56 (69) 98 09/25/19 19:10 98 Nasal Cannula 2.0 28 I&O Intake and Output 09/25/19 09/26/19 19:00 07:00 Intake Total 300 ml Balance 300 ml Intake Oral 300 ml # Voids 4 4 Cardiovascular: RSR Respiratory: decreased breath sounds Abdomen: soft, non-tender, present bowel sounds Extremities: no tenderness, no cyanosis Laboratory Tests Test 09/26/19 06:59 White Blood Count 3.9 K/UL (4.8-10.8) L Red Blood Count 2.92 M/UL (4.20-5.40) L Hemoglobin 8.4 G/DL (12.0-16.0) L Hematocrit 26.1 % (37.0-47.0) L Mean Corpuscular Volume 89 FL (80-99) Mean Corpuscular Hemoglobin 28.6 PG (27.0-31.0) Mean Corpuscular Hemoglobin Concent 32.1 G/DL (32.0-36.0) Red Cell Distribution Width 19.1 % (11.6-14.8) H Platelet Count 144 K/UL (150-450) L Mean Platelet Volume 10.6 FL (6.5-10.1) H Neutrophils (%) (Auto) 66.6 % (45.0-75.0) Lymphocytes (%) (Auto) 24.5 % (20.0-45.0) Monocytes (%) (Auto) 3.3 % (1.0-10.0) Eosinophils (%) (Auto) 0.9 % (0.0-3.0) Basophils (%) (Auto) 4.7 % (0.0-2.0) H Sodium Level 139 MMOL/L (136-145) Potassium Level 4.1 MMOL/L (3.5-5.1) Chloride Level 106 MMOL/L (98-107) Carbon Dioxide Level 27 MMOL/L (21-32) Anion Gap 6 mmol/L (5-15) Blood Urea Nitrogen 17 mg/dL (7-18) Creatinine 0.9 MG/DL (0.55-1.30) Estimat Glomerular Filtration Rate > 60 mL/min (>60) Glucose Level 86 MG/DL (74-106) Calcium Level 8.5 MG/DL (8.5-10.1) HIV (1&2) Antibody Rapid Negative (NEGATIVE) Plan Problems: (1) ACS (acute coronary syndrome) (2) Pyelonephritis (3) CAD (coronary artery disease) (4) COPD (chronic obstructive pulmonary disease) (5) positional vertigo (6) KELVIN (obstructive sleep apnea) (7) Peripheral neuropathy (8) Myelofibrosis (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 hx of bleeding held anticoagulation since prior right hemothorax s/p evacuation and vats transfusing prbc coags noted may need ffp ddx includes possible GI hemorrhage. protonix ordered pending GI eval consider scope CT once stable US abd ordered thank you will follow with recs trend h/h transfuse prn Gallbladder demonstrates a gallstone. This also reported on same day CT. Sonographic Camacho's sign is negative. Common bile duct measures 5 mm in diameter. No intrahepatic biliary ductal dilatation. Liver demonstrates normal echogenicity, no focal abnormality. Portal vein and hepatic veins are patent. Pancreas is unremarkable. The spleen demonstrates a complex upper pole cyst that measures 2.7 cm in diameter. The spleen is borderline enlarged. There are bilateral pleural effusions Left kidney measures 10.2 cm in length. Right kidney measures 9.2 cm length. Both kidneys demonstrate normal echogenicity. There is no hydronephrosis. No focal abnormality . Non-aneurysmal abdominal aorta . Impression: Cholelithiasis. Negative for dilated bile ducts 2.7 cm complex upper pole splenic cyst, also reported on prior imaging studies. Bilateral pleural effusions Chest: The lungs demonstrate a mosaic perfusion pattern, which is more striking than that seen previously. Some atelectasis and consolidation is seen involving both lower lobes. This appears similar on the right, slightly more extensive on the left. There is a moderate-sized right pleural effusion which appears similar to the previous study. There is a small left pleural effusion which is new since the previous study. Previous exam demonstrated a 1.5 cm opacity in the inferior right azygoesophageal recess. This is not evident currently although could be obscured by surrounding atelectatic lung. The heart is enlarged. There is a left chest pacemaker again demonstrated. No pericardial effusion. No mediastinal or hilar mass or adenopathy. Right lower pole thyroid calcification is again demonstrated. No axillary or chest wall mass or adenopathy. There are fairly profound degenerative changes of the bilateral shoulders. There is evidence of interim healing of previously demonstrated right rib fractures, nearly but not completely healed as some fracture lines persist. There are degenerative changes of the thoracic spine noted. Abdomen pelvis: What is probably a normal appendix is demonstrated. There is extensive colonic diverticulosis. No evidence of diverticulitis. The rectum is mildly distended, mostly with gas with some stool as well. No small bowel distention or small bowel wall thickening. Numerous surgical clips are seen in the retroperitoneum and left side of the pelvis. The stomach and duodenum are unremarkable. The gallbladder contains a gallstone. No biliary ductal dilatation. The liver is mildly enlarged. The pancreas is unremarkable. The spleen is enlarged, measuring 14 cm long axis dimension. It demonstrates a complex upper pole cyst, also previously demonstrated the adrenals and kidneys are unremarkable. There is a retroaortic left renal vein incidentally noted. The uterus is absent.. The bladder is unremarkable. The bones demonstrate degenerative spondylosis changes. IMPRESSION: Cardiomegaly Unchanged moderate right pleural effusion, since June 2019. New small left pleural effusion Bilateral mosaic perfusion pattern, probably on the basis of pulmonary edema Bilateral basilar compressive atelectasis and possible consolidation Interim healing of previously demonstrated right rib fractures Previously demonstrated right azygoesophageal recess lesion is no longer evident , may have resolved or may be obscured by surrounding lung parenchyma. Cholelithiasis Hepatomegaly Splenomegaly Splenic cystic lesion, unchanged from prior exam Postsurgical changes as described, including pacemaker, evidence of prior hysterectomy, evidence of prior pelvic lymph node dissection, prior hysterectomy Errol Estrada Sep 26, 2019 18:33
--- NOTE | 2019-09-26 19:39 | NUR ---
NURSE HAND-OFF: Important Events on Shift:[safety and comfort] Patient Status: [stable] Diet: [Regular soft easy chew] Pending Orders: [] Pending Results/Labs:[] Pending MD notification:[] Latest Vital Signs: Temperature 98.9 , Pulse 64 , B/P 106 /55 , Respiratory Rate 17 , O2 SAT 92 , Nasal Cannula, O2 Flow Rate 2.0 . Vital Sign Comment: [] Latest Yepez Fall Score: 60 Fall Risk: High Risk Safety Measures: Call light Within Reach, Bed Alarm Zone 1, Side Rails Side Rails x2, Bed position Low and Locked. Fall Precautions: Yellow Socks Yellow Gown Door Sign Patient Fall Education Report given to [IRA Ricardo].
--- NOTE | 2019-09-26 19:47 | NUR ---
NURSE NOTES: Patient in bed asleep at this time but easily arousable. On nasal cannula 2L with no signs of SOB or distress. IV intact and patent. Bed locked and in lowest position. Bed alarm on. Commode at bedside. Instructed to call for assist getting up. Call light in easy reach. Will continue to monitor the patient.
[2019-09-26 20:00] VITALS: BP 119/56
[2019-09-27] VITALS: BP 110/68
[2019-09-27 04:00] VITALS: BP 105/64
[2019-09-27 07:07] LABS: ANION GAP 6 mmol/L (5-15); BLOOD UREA NITROGEN 21 mg/dL (7-18); CALCIUM 8.5 MG/DL (8.5-10.1); CARBON DIOXIDE 29 MMOL/L (21-32); CHLORIDE 106 MMOL/L (98-107); CREATININE 0.7 MG/DL (0.55-1.30); POTASSIUM 4.2 MMOL/L (3.5-5.1); SODIUM 141 MMOL/L (136-145)
[2019-09-27 07:18] LABS: BASOPHILS % (AUTO) 4.7 % (0.0-2.0); EOSINOPHILS % (AUTO) 1.5 % (0.0-3.0); HEMATOCRIT 25.5 % (37.0-47.0); HEMOGLOBIN 8.1 G/DL (12.0-16.0); LYMPHOCYTES % (AUTO) 24.3 % (20.0-45.0); MEAN CORPUSCULAR VOLUME 90 FL (80-99); MONOCYTES % (AUTO) 4.1 % (1.0-10.0); NEUTROPHILS % (AUTO) 65.4 % (45.0-75.0); PLATELET COUNT 143 K/UL (150-450); RED BLOOD COUNT 2.84 M/UL (4.20-5.40); RED CELL DISTRIBUTION WIDTH 19.2 % (11.6-14.8); WHITE BLOOD COUNT 3.6 K/UL (4.8-10.8)
--- NOTE | 2019-09-27 07:39 | Hematology/Onc Progress Note ---
Assessment/Plan Assessment/Plan ASSESSMENT AND RECOMMENDATIONS # Polycythemia vera, JAK2+++. In prior was on hydroxyurea --> obtain jak2 level--> was detected -> consider outpatient hydrea when h/h better --> imaging abd us ordered - Splenomegaly. 3 cm cyst within the spleen probably complex with at least one or 2 septations. Trace right pleural effusion. Gallbladder sludge versus stones. --> likely will need better titration of hydrea on discharged # Pancytopenia now with initially with anemia of chronic disease due to underlying chronic medical issues, multifactorial, also due to polycythemia vera , hgb 5 on admission --> Anemia workup has been ordered, rule out gi bleed - results noted and cw acd --> No evidence of hemolysis is noted, peripheral smear has been reviewed. --> Hgb goal >7. Transfuse prn --> S/P IV iron x 5 days 08/06/18 --> Medications have been reviewed --> low threshold for gi evaluation in case has occult --> Hgb trend:4.8-->5.1-->9-->8.9-->8.1 --> wbc 3.8 --> plt 143 --> Patient received an EGD by GI at that time that showed gastritis. No varices # Vertigo. --> per neuro as needed # Atrial fibrillation with rapid ventricular rate. --> Serial troponin levels will be performeD prior and neg --> started on amio for rapid ventricular rate. --> per cards # Hypertension. Cont on clonidine # Obstructive sleep apnea. # Coronary artery disease. # Hypercholesteremia. # Congestive heart failure. # Dvt ppx scds The time the the note is entered does not reflect the time the patient was examined. I greatly appreciate the consultation. Subjective Constitutional: Denies: no symptoms, chills, fever, malaise, weakness, other HEENT: Denies: no symptoms, eye pain, blurred vision, tearing, double vision, ear pain, ear discharge, nose pain, nose congestion, throat pain, throat swelling, mouth pain, mouth swelling, other Cardiovascular: Denies: no symptoms, chest pain, edema, irregular heart rate, lightheadedness, palpitations, syncope, other Respiratory: Denies: no symptoms, cough, shortness of breath, SOB with excertion, SOB at rest, sputum, wheezing, other Gastrointestinal/Abdominal: Denies: no symptoms, abdomen distended, abdominal pain, black stools, tarry stools, blood in stool, constipated, diarrhea, difficulty swallowing, nausea, poor appetite, poor fluid intake, rectal bleeding , vomiting, other Genitourinary: Denies: no symptoms, burning, discharge, frequency, flank pain, hematuria, incontinence, pain, urgency, other Neurologic/Psychiatric: Denies: no symptoms, anxiety, depressed, emotional problems, headache, numbness, paresthesia, pre-existing deficit, seizure, tingling, tremors, weakness, other Endocrine: Denies: no symptoms, excessive sweating, flushing, intolerance to cold, intolerance to heat, increased hunger, increased thirst, increased urine, unexplained weight gain, unexplained weight loss, other Allergies: Coded Allergies: No Known Allergies (Unverified , 04/24/18) Subjective 09/25 no major events, no bleeding, labs noted, no night sweats, hgb 8.4, wbc 3.9 09/26 asleep, no events, no bleeding, cbc and bmp noted, dw rn Objective Objective Current Medications Medications (Trade) Dose Ordered Sig/Escobar Route PRN Reason Start Time Stop Time Status Last Admin Dose Admin Acetaminophen (Tylenol) 650 mg Q4H PRN ORAL T>100.5 09/24/19 01:03 10/21/19 01:02 Amiodarone HCl (Cordarone) 200 mg DAILY ORAL 09/24/19 09:00 12/21/19 08:59 09/26/19 08:52 Digoxin (Lanoxin) 0.125 mg DAILY ORAL 09/24/19 09:00 12/22/19 08:59 09/26/19 08:53 Folic Acid (Folate) 1 mg DAILY ORAL 09/24/19 09:00 10/24/19 08:59 09/26/19 08:52 Gabapentin (Neurontin) 300 mg THREE TIMES A DAY ORAL 09/24/19 09:00 10/22/19 08:59 09/26/19 17:25 Metoprolol Tartrate (Lopressor) 50 mg EVERY 12 HOURS ORAL 09/24/19 21:00 12/20/19 20:59 09/25/19 08:29 Ondansetron HCl (Zofran) 4 mg Q6H PRN IVP Nausea & Vomiting 09/24/19 01:15 10/21/19 19:14 Zolpidem Tartrate (Ambien) 5 mg HSPRN PRN ORAL Insomnia 09/24/19 01:04 09/28/19 01:03 Last 24 Hour Vital Signs Date Time Temp Pulse Resp B/P (MAP) Pulse Ox O2 Delivery O2 Flow Rate FiO2 09/27/19 04:00 98.2 65 18 105/64 (78) 93 09/27/19 00:00 98.6 62 18 110/68 (82) 95 09/26/19 21:55 68 119/56 09/26/19 21:00 Nasal Cannula 2.0 09/26/19 20:00 98.1 68 17 119/56 (77) 94 09/26/19 16:00 98.9 64 17 106/55 (72) 92 09/26/19 12:00 96.8 61 20 102/66 (78) 91 09/26/19 09:00 62 97/60 09/26/19 09:00 Nasal Cannula 2.0 09/26/19 08:53 64 09/26/19 08:00 96.9 64 17 100/55 (70) 92 09/26/19 04:00 96.6 61 18 108/56 (73) 96 09/26/19 00:00 97.5 62 18 102/58 (73) 94 09/25/19 21:00 Nasal Cannula 2.0 09/25/19 20:34 61 96/56 09/25/19 20:00 97.2 61 18 96/56 (69) 98 09/25/19 19:10 98 Nasal Cannula 2.0 28 09/25/19 16:00 98.4 69 18 120/63 (82) 93 09/25/19 12:00 98.0 69 18 118/61 (80) 93 09/25/19 09:00 Nasal Cannula 2.0 09/25/19 08:29 64 110/59 09/25/19 08:29 64 09/25/19 08:00 98.9 64 17 110/59 (76) 92 Intake and Output 09/26/19 09/27/19 19:00 07:00 Intake Total 1040 ml Balance 1040 ml Intake Oral 1040 ml # Voids 5 4 Labs Test 09/24/19 11:05 09/25/19 05:27 09/26/19 06:59 09/27/19 06:20 POC Whole Blood Glucose 83 MG/DL (74-106) White Blood Count 4.6 K/UL (4.8-10.8) 3.9 K/UL (4.8-10.8) 3.6 K/UL (4.8-10.8) Red Blood Count 3.06 M/UL (4.20-5.40) 2.92 M/UL (4.20-5.40) 2.84 M/UL (4.20-5.40) Hemoglobin 8.8 G/DL (12.0-16.0) 8.4 G/DL (12.0-16.0) 8.1 G/DL (12.0-16.0) Hematocrit 26.9 % (37.0-47.0) 26.1 % (37.0-47.0) 25.5 % (37.0-47.0) Mean Corpuscular Volume 88 FL (80-99) 89 FL (80-99) 90 FL (80-99) Mean Corpuscular Hemoglobin 28.7 PG (27.0-31.0) 28.6 PG (27.0-31.0) 28.7 PG (27.0-31.0) Mean Corpuscular Hemoglobin Concent 32.7 G/DL (32.0-36.0) 32.1 G/DL (32.0-36.0) 31.9 G/DL (32.0-36.0) Red Cell Distribution Width 19.8 % (11.6-14.8) 19.1 % (11.6-14.8) 19.2 % (11.6-14.8) Platelet Count 153 K/UL (150-450) 144 K/UL (150-450) 143 K/UL (150-450) Mean Platelet Volume 9.7 FL (6.5-10.1) 10.6 FL (6.5-10.1) 10.2 FL (6.5-10.1) Neutrophils (%) (Auto) 70.9 % (45.0-75.0) 66.6 % (45.0-75.0) 65.4 % (45.0-75.0) Lymphocytes (%) (Auto) 20.3 % (20.0-45.0) 24.5 % (20.0-45.0) 24.3 % (20.0-45.0) Monocytes (%) (Auto) 3.2 % (1.0-10.0) 3.3 % (1.0-10.0) 4.1 % (1.0-10.0) Eosinophils (%) (Auto) 0.8 % (0.0-3.0) 0.9 % (0.0-3.0) 1.5 % (0.0-3.0) Basophils (%) (Auto) 4.8 % (0.0-2.0) 4.7 % (0.0-2.0) 4.7 % (0.0-2.0) Sodium Level 139 MMOL/L (136-145) 139 MMOL/L (136-145) 141 MMOL/L (136-145) Potassium Level 4.1 MMOL/L (3.5-5.1) 4.1 MMOL/L (3.5-5.1) 4.2 MMOL/L (3.5-5.1) Chloride Level 105 MMOL/L (98-107) 106 MMOL/L (98-107) 106 MMOL/L (98-107) Carbon Dioxide Level 26 MMOL/L (21-32) 27 MMOL/L (21-32) 29 MMOL/L (21-32) Anion Gap 8 mmol/L (5-15) 6 mmol/L (5-15) 6 mmol/L (5-15) Blood Urea Nitrogen 18 mg/dL (7-18) 17 mg/dL (7-18) 21 mg/dL (7-18) Creatinine 0.9 MG/DL (0.55-1.30) 0.9 MG/DL (0.55-1.30) 0.7 MG/DL (0.55-1.30) Estimat Glomerular Filtration Rate > 60 mL/min (>60) > 60 mL/min (>60) > 60 mL/min (>60) Glucose Level 92 MG/DL (74-106) 86 MG/DL (74-106) 86 MG/DL (74-106) Calcium Level 8.6 MG/DL (8.5-10.1) 8.5 MG/DL (8.5-10.1) 8.5 MG/DL (8.5-10.1) Iron Level 92 ug/dL (50-175) Total Iron Binding Capacity 136 ug/dL (250-450) Percent Iron Saturation 68 % (15-50) Unsaturated Iron Binding 44 ug/dL (112-346) Ferritin 703 NG/ML (8-388) Vitamin B12 Level 1033 PG/ML (193-986) Folate 42.8 NG/ML (8.6-58.9) HIV (1&2) Antibody Rapid Negative (NEGATIVE) Height (Feet): 5 Height (Inches): 1.00 Weight (Pounds): 116 Objective Physical Exam: GENERAL: Awake_alert_ nontoxic, no acute distress EYES: Extraocular muscles are intact. Conjunctivae clear ENT: External nose and ear normal_in_appearance. NECK: No JVD. No meningismus. No thyromegaly. RESP: Normal respiratory effort. Symmetric rise. CARDIAC: Regular rate and regular rhythm on_auscultation ABDOMEN: Soft. Nondistended. Nontender MSK: Normal muscle tone, without rigidity. SKIN: Warm and dry. No visible cyanosis NEUROLOGIC: Alert, oriented x3. Psych: Normal mood and affect Best Kaplan MD Sep 27, 2019 07:39
--- NOTE | 2019-09-27 07:41 | NUR ---
HAND-OFF: Report given to IRA Morris.
[2019-09-27 08:00] VITALS: BP 102/59
[2019-09-27] MEDS: Amiodarone 200mg tab ORAL SCH (09:39)
[2019-09-27] MEDS: Digoxin 0.125mg tab ORAL SCH (09:39)
[2019-09-27] MEDS: Metoprolol Tartrate 50mg tab ORAL SCH ×2 (09:39→21:00)
--- NOTE | 2019-09-27 11:18 | Surgery Progress Note ---
Surgery Progress Note Subjective Symptoms: improved, pain absent, tolerating diet, passing flatus, BM Objective Last 24 Hour Vital Signs Date Time Temp Pulse Resp B/P (MAP) Pulse Ox O2 Delivery O2 Flow Rate FiO2 09/27/19 09:39 61 102/59 09/27/19 09:39 61 09/27/19 09:00 Nasal Cannula 2.0 09/27/19 08:00 97.5 61 18 102/59 (73) 98 09/27/19 04:00 98.2 65 18 105/64 (78) 93 09/27/19 00:00 98.6 62 18 110/68 (82) 95 09/26/19 21:55 68 119/56 09/26/19 21:00 Nasal Cannula 2.0 09/26/19 20:00 98.1 68 17 119/56 (77) 94 09/26/19 16:00 98.9 64 17 106/55 (72) 92 09/26/19 12:00 96.8 61 20 102/66 (78) 91 I&O Intake and Output 09/26/19 09/27/19 19:00 07:00 Intake Total 1040 ml Balance 1040 ml Intake Oral 1040 ml # Voids 5 4 Dressing: dry Wound: clean Cardiovascular: RSR Respiratory: clear, decreased breath sounds Abdomen: soft, non-tender, present bowel sounds Extremities: no tenderness, no cyanosis Laboratory Tests Test 09/27/19 06:20 White Blood Count 3.6 K/UL (4.8-10.8) L Red Blood Count 2.84 M/UL (4.20-5.40) L Hemoglobin 8.1 G/DL (12.0-16.0) L Hematocrit 25.5 % (37.0-47.0) L Mean Corpuscular Volume 90 FL (80-99) Mean Corpuscular Hemoglobin 28.7 PG (27.0-31.0) Mean Corpuscular Hemoglobin Concent 31.9 G/DL (32.0-36.0) L Red Cell Distribution Width 19.2 % (11.6-14.8) H Platelet Count 143 K/UL (150-450) L Mean Platelet Volume 10.2 FL (6.5-10.1) H Neutrophils (%) (Auto) 65.4 % (45.0-75.0) Lymphocytes (%) (Auto) 24.3 % (20.0-45.0) Monocytes (%) (Auto) 4.1 % (1.0-10.0) Eosinophils (%) (Auto) 1.5 % (0.0-3.0) Basophils (%) (Auto) 4.7 % (0.0-2.0) H Sodium Level 141 MMOL/L (136-145) Potassium Level 4.2 MMOL/L (3.5-5.1) Chloride Level 106 MMOL/L (98-107) Carbon Dioxide Level 29 MMOL/L (21-32) Anion Gap 6 mmol/L (5-15) Blood Urea Nitrogen 21 mg/dL (7-18) H Creatinine 0.7 MG/DL (0.55-1.30) Estimat Glomerular Filtration Rate > 60 mL/min (>60) Glucose Level 86 MG/DL (74-106) Calcium Level 8.5 MG/DL (8.5-10.1) Plan Problems: (1) ACS (acute coronary syndrome) (2) Pyelonephritis (3) CAD (coronary artery disease) (4) COPD (chronic obstructive pulmonary disease) (5) positional vertigo (6) KELVIN (obstructive sleep apnea) (7) Peripheral neuropathy (8) Myelofibrosis (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 hx of bleeding held anticoagulation since prior right hemothorax s/p evacuation and vats transfusing prbc coags noted may need ffp ddx includes possible GI hemorrhage. protonix ordered pending GI eval consider scope CT once stable US abd ordered thank you will follow with recs trend h/h transfuse prn Gallbladder demonstrates a gallstone. This also reported on same day CT. Sonographic Camacho's sign is negative. Common bile duct measures 5 mm in diameter. No intrahepatic biliary ductal dilatation. Liver demonstrates normal echogenicity, no focal abnormality. Portal vein and hepatic veins are patent. Pancreas is unremarkable. The spleen demonstrates a complex upper pole cyst that measures 2.7 cm in diameter. The spleen is borderline enlarged. There are bilateral pleural effusions Left kidney measures 10.2 cm in length. Right kidney measures 9.2 cm length. Both kidneys demonstrate normal echogenicity. There is no hydronephrosis. No focal abnormality . Non-aneurysmal abdominal aorta . Impression: Cholelithiasis. Negative for dilated bile ducts 2.7 cm complex upper pole splenic cyst, also reported on prior imaging studies. Bilateral pleural effusions Chest: The lungs demonstrate a mosaic perfusion pattern, which is more striking than that seen previously. Some atelectasis and consolidation is seen involving both lower lobes. This appears similar on the right, slightly more extensive on the left. There is a moderate-sized right pleural effusion which appears similar to the previous study. There is a small left pleural effusion which is new since the previous study. Previous exam demonstrated a 1.5 cm opacity in the inferior right azygoesophageal recess. This is not evident currently although could be obscured by surrounding atelectatic lung. The heart is enlarged. There is a left chest pacemaker again demonstrated. No pericardial effusion. No mediastinal or hilar mass or adenopathy. Right lower pole thyroid calcification is again demonstrated. No axillary or chest wall mass or adenopathy. There are fairly profound degenerative changes of the bilateral shoulders. There is evidence of interim healing of previously demonstrated right rib fractures, nearly but not completely healed as some fracture lines persist. There are degenerative changes of the thoracic spine noted. Abdomen pelvis: What is probably a normal appendix is demonstrated. There is extensive colonic diverticulosis. No evidence of diverticulitis. The rectum is mildly distended, mostly with gas with some stool as well. No small bowel distention or small bowel wall thickening. Numerous surgical clips are seen in the retroperitoneum and left side of the pelvis. The stomach and duodenum are unremarkable. The gallbladder contains a gallstone. No biliary ductal dilatation. The liver is mildly enlarged. The pancreas is unremarkable. The spleen is enlarged, measuring 14 cm long axis dimension. It demonstrates a complex upper pole cyst, also previously demonstrated the adrenals and kidneys are unremarkable. There is a retroaortic left renal vein incidentally noted. The uterus is absent.. The bladder is unremarkable. The bones demonstrate degenerative spondylosis changes. IMPRESSION: Cardiomegaly Unchanged moderate right pleural effusion, since June 2019. New small left pleural effusion Bilateral mosaic perfusion pattern, probably on the basis of pulmonary edema Bilateral basilar compressive atelectasis and possible consolidation Interim healing of previously demonstrated right rib fractures Previously demonstrated right azygoesophageal recess lesion is no longer evident , may have resolved or may be obscured by surrounding lung parenchyma. Cholelithiasis Hepatomegaly Splenomegaly Splenic cystic lesion, unchanged from prior exam Postsurgical changes as described, including pacemaker, evidence of prior hysterectomy, evidence of prior pelvic lymph node dissection, prior hysterectomy Errol Estrada Sep 27, 2019 11:18
--- NOTE | 2019-09-27 11:26 | NUR ---
CAMPAIGN ANALYST NOTE CALL MADE TO DR MEYER FOR CLARIFICATION OF DC PLANNING ORDER FOR HOME HEALTH / SNF PLACEMENT. AWAITING CALL BACK. Addendum: 09/27/19 at 1159 by GADIEL MCCORMACK LVN LVN CALL BACK FROM DR MEYER. DCP FOR EITHER HH OR SNF PER PATIENT AGREEMENT. S/W PATIENT AT BEDSIDE, STATED SHE PREFERS HOME VS SNF.
--- NOTE | 2019-09-27 11:38 | Pulmonology Progress Note ---
Subjective ROS Limited/Unobtainable: No Constitutional: Reports: no symptoms HEENT: Repors: no symptoms Respiratory: Reports: no symptoms Allergies: Coded Allergies: No Known Allergies (Unverified , 04/24/18) Subjective afebrile, no signs of resp distress pulse ox stable on O2 via NC remains afebrile, no leukocytosis Hgb 8.1 this am Objective Last 24 Hour Vital Signs Date Time Temp Pulse Resp B/P (MAP) Pulse Ox O2 Delivery O2 Flow Rate FiO2 09/27/19 09:39 61 102/59 09/27/19 09:39 61 09/27/19 09:00 Nasal Cannula 2.0 09/27/19 08:00 97.5 61 18 102/59 (73) 98 09/27/19 04:00 98.2 65 18 105/64 (78) 93 09/27/19 00:00 98.6 62 18 110/68 (82) 95 09/26/19 21:55 68 119/56 09/26/19 21:00 Nasal Cannula 2.0 09/26/19 20:00 98.1 68 17 119/56 (77) 94 09/26/19 16:00 98.9 64 17 106/55 (72) 92 09/26/19 12:00 96.8 61 20 102/66 (78) 91 Intake and Output 09/26/19 09/27/19 19:00 07:00 Intake Total 1040 ml Balance 1040 ml Intake Oral 1040 ml # Voids 5 4 General Appearance: no acute distress, cachetic - Sami speaking female HEENT: normocephalic, atraumatic Respiratory: chest wall non-tender, lungs clear, no respiratory distress, no accessory muscle use Cardiovascular: normal peripheral pulses, normal rate Abdomen: normal bowel sounds, soft, non tender Skin: no rash, other - posterior and lateral right chest healed scar Neurologic: 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 or 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2, Chloride Level 106, Carbon Dioxide Level 29, Anion Gap 6, Blood Urea Nitrogen 21H, Creatinine 0.7, Estimat Glomerular Filtration Rate > 60, Glucose Level 86, Calcium Level 8.5 Current Medications Medications (Trade) Dose Ordered Sig/Escobar Route PRN Reason Start Time Stop Time Status Last Admin Dose Admin Acetaminophen (Tylenol) 650 mg Q4H PRN ORAL T>100.5 09/24/19 01:03 10/21/19 01:02 Amiodarone HCl (Cordarone) 200 mg DAILY ORAL 09/24/19 09:00 12/21/19 08:59 09/27/19 09:39 Digoxin (Lanoxin) 0.125 mg DAILY ORAL 09/24/19 09:00 12/22/19 08:59 09/27/19 09:39 Folic Acid (Folate) 1 mg DAILY ORAL 09/24/19 09:00 10/24/19 08:59 09/27/19 09:40 Gabapentin (Neurontin) 300 mg THREE TIMES A DAY ORAL 09/24/19 09:00 10/22/19 08:59 09/27/19 09:39 Metoprolol Tartrate (Lopressor) 50 mg EVERY 12 HOURS ORAL 09/24/19 21:00 12/20/19 20:59 09/27/19 09:39 Ondansetron HCl (Zofran) 4 mg Q6H PRN IVP Nausea & Vomiting 09/24/19 01:15 10/21/19 19:14 Zolpidem Tartrate (Ambien) 5 mg HSPRN PRN ORAL Insomnia 09/24/19 01:04 09/28/19 01:03 Assessment/Plan Assessment/Plan ASSESSMENT Severe anemia requiring blood transfusion Polycythemia vera History of VATS 2 to right hemothorax Moderate right pleural effusion Severe pulmonary hypertension KELVIN Paroxysmal atrial fibrillation CAD with history of NC SSS , status post pacemaker Hypertension PLAN OF CARE MS floor O2 titrate to keep sat > 92% pulmonary toilet CT chest noted ; unchanged right pleural effusion rapid COVID 19 NGT s/p 4 units PRBC GI and heme follow anemia work-up noted monitor H&H with goal to keep Hgb > [address] abdomen and pelvis noted declined colonoscopy per heme prior was on hydroxyurea , and consider to restart JAK2 positive Protonix bid continue amiodarone ,beta-kelli and digoxin as per cardio recs off a/c 2 to anemia UCX + mixed GPO CT head negative supportive care case discussed and evaluated by supervising physician Cait Melchor NP Sep 27, 2019 11:38
--- NOTE | 2019-09-27 11:59 | NUR ---
DISCHARGE PLANNING PATIENT HAS BEEN REFERRED TO [facility] P: [phone] F: [phone]
[2019-09-27 12:00] VITALS: BP 108/53
--- NOTE | 2019-09-27 14:14 | Cardiac Electrophysiology PN ---
Assessment/Plan Assessment/Plan 1. Weakness due to profound anemia, hemoglobin of 4.8. S/P four units of blood transfusion. GI workup for last two years had two endoscopies with last one in July 2018, which was negative for obvious GI bleeding. Stool OBs are negative. S/P ABD US, Chests CT. Refused Colonoscopy per Dr Kaiser 2. Status post [employer] pacemaker implantation in 2010 and generator change by me in 2018 with normal function by interrogation on last visit. 3. Paroxysmal atrial fibrillation with rapid ventricular response and atrially paced rhythm on amiodarone 200 mg daily, metoprolol 50 mg bid and digoxin 0.125 mg daily . Off anticoagulation for severe anemia requiring multiple blood transfusions in the past. 4. Hypertension, on metoprolol. 5. Urinary tract infection. 6. History of polycythemia vera. 7. Severe pulmonary hypertension with PA pressure of 71. 8. Hemothorax status post VATS by Dr. Malik in 07/2019. RILEY RN. Subjective Subjective Alert in NAD, No CP Objective Last 24 Hour Vital Signs Date Time Temp Pulse Resp B/P (MAP) Pulse Ox O2 Delivery O2 Flow Rate FiO2 09/27/19 12:00 98.1 68 17 108/53 (71) 95 09/27/19 09:39 61 102/59 09/27/19 09:39 61 09/27/19 09:00 Nasal Cannula 2.0 09/27/19 08:00 97.5 61 18 102/59 (73) 98 09/27/19 04:00 98.2 65 18 105/64 (78) 93 09/27/19 00:00 98.6 62 18 110/68 (82) 95 09/26/19 21:55 68 119/56 09/26/19 21:00 Nasal Cannula 2.0 09/26/19 20:00 98.1 68 17 119/56 (77) 94 09/26/19 16:00 98.9 64 17 106/55 (72) 92 Intake and Output 09/26/19 09/27/19 19:00 07:00 Intake Total 1040 ml Balance 1040 ml Intake Oral 1040 ml # Voids 5 4 Laboratory Tests Test 09/27/19 06:20 White Blood Count 3.6 K/UL (4.8-10.8) L Red Blood Count 2.84 M/UL (4.20-5.40) L Hemoglobin 8.1 G/DL (12.0-16.0) L Hematocrit 25.5 % (37.0-47.0) L Mean Corpuscular Volume 90 FL (80-99) Mean Corpuscular Hemoglobin 28.7 PG (27.0-31.0) Mean Corpuscular Hemoglobin Concent 31.9 G/DL (32.0-36.0) L Red Cell Distribution Width 19.2 % (11.6-14.8) H Platelet Count 143 K/UL (150-450) L Mean Platelet Volume 10.2 FL (6.5-10.1) H Neutrophils (%) (Auto) 65.4 % (45.0-75.0) Lymphocytes (%) (Auto) 24.3 % (20.0-45.0) Monocytes (%) (Auto) 4.1 % (1.0-10.0) Eosinophils (%) (Auto) 1.5 % (0.0-3.0) Basophils (%) (Auto) 4.7 % (0.0-2.0) H Sodium Level 141 MMOL/L (136-145) Potassium Level 4.2 MMOL/L (3.5-5.1) Chloride Level 106 MMOL/L (98-107) Carbon Dioxide Level 29 MMOL/L (21-32) Anion Gap 6 mmol/L (5-15) Blood Urea Nitrogen 21 mg/dL (7-18) H Creatinine 0.7 MG/DL (0.55-1.30) Estimat Glomerular Filtration Rate > 60 mL/min (>60) Glucose Level 86 MG/DL (74-106) Calcium Level 8.5 MG/DL (8.5-10.1) Objective HEAD AND NECK: No JVD or carotid bruits. Sclerae are very pale. LUNGS: Clear. CARDIOVASCULAR: Shows regular S1 and S2 with no gallop. Pacemaker in the left subclavian, healed. ABDOMEN: Soft. EXTREMITIES: No pitting edema. River Freitas MD Sep 27, 2019 14:14
--- NOTE | 2019-09-27 14:29 | Internal Med Progress Note ---
Subjective Date of Service: Sep 27, 2019 Physician Name Roshan Edwards Attending Physician Antonio Adrian MD Current Medications Medications (Trade) Dose Ordered Sig/Escobar Route PRN Reason Start Time Stop Time Status Last Admin Dose Admin Acetaminophen (Tylenol) 650 mg Q4H PRN ORAL T>100.5 09/24/19 01:03 10/21/19 01:02 Amiodarone HCl (Cordarone) 200 mg DAILY ORAL 09/24/19 09:00 12/21/19 08:59 09/27/19 09:39 Digoxin (Lanoxin) 0.125 mg DAILY ORAL 09/24/19 09:00 12/22/19 08:59 09/27/19 09:39 Folic Acid (Folate) 1 mg DAILY ORAL 09/24/19 09:00 10/24/19 08:59 09/27/19 09:40 Gabapentin (Neurontin) 300 mg THREE TIMES A DAY ORAL 09/24/19 09:00 10/22/19 08:59 09/27/19 12:45 Metoprolol Tartrate (Lopressor) 50 mg EVERY 12 HOURS ORAL 09/24/19 21:00 12/20/19 20:59 09/27/19 09:39 Ondansetron HCl (Zofran) 4 mg Q6H PRN IVP Nausea & Vomiting 09/24/19 01:15 10/21/19 19:14 Zolpidem Tartrate (Ambien) 5 mg HSPRN PRN ORAL Insomnia 09/24/19 01:04 09/28/19 01:03 Allergies: Coded Allergies: No Known Allergies (Unverified , 04/24/18) ROS Limited/Unobtainable: No Constitutional: Reports: no symptoms HEENT: Reports: no symptoms Cardiovascular: Reports: no symptoms Respiratory: Reports: no symptoms Gastrointestinal/Abdominal: Reports: no symptoms Genitourinary: Reports: no symptoms Neurologic/Psychiatric: Reports: no symptoms Subjective 79 YO F admitted with generalized weakness. Now severe anemia. Cover for Int med-Dr Adrian. Objective Last Vital Signs Date Time Temp Pulse Resp B/P (MAP) Pulse Ox O2 Delivery O2 Flow Rate FiO2 09/27/19 12:00 98.1 68 17 108/53 (71) 95 09/27/19 09:00 Nasal Cannula 2.0 09/25/19 19:10 28 Laboratory Tests Test 09/27/19 06:20 White Blood Count 3.6 K/UL (4.8-10.8) L Red Blood Count 2.84 M/UL (4.20-5.40) L Hemoglobin 8.1 G/DL (12.0-16.0) L Hematocrit 25.5 % (37.0-47.0) L Mean Corpuscular Volume 90 FL (80-99) Mean Corpuscular Hemoglobin 28.7 PG (27.0-31.0) Mean Corpuscular Hemoglobin Concent 31.9 G/DL (32.0-36.0) L Red Cell Distribution Width 19.2 % (11.6-14.8) H Platelet Count 143 K/UL (150-450) L Mean Platelet Volume 10.2 FL (6.5-10.1) H Neutrophils (%) (Auto) 65.4 % (45.0-75.0) Lymphocytes (%) (Auto) 24.3 % (20.0-45.0) Monocytes (%) (Auto) 4.1 % (1.0-10.0) Eosinophils (%) (Auto) 1.5 % (0.0-3.0) Basophils (%) (Auto) 4.7 % (0.0-2.0) H Sodium Level 141 MMOL/L (136-145) Potassium Level 4.2 MMOL/L (3.5-5.1) Chloride Level 106 MMOL/L (98-107) Carbon Dioxide Level 29 MMOL/L (21-32) Anion Gap 6 mmol/L (5-15) Blood Urea Nitrogen 21 mg/dL (7-18) H Creatinine 0.7 MG/DL (0.55-1.30) Estimat Glomerular Filtration Rate > 60 mL/min (>60) Glucose Level 86 MG/DL (74-106) Calcium Level 8.5 MG/DL (8.5-10.1) Intake and Output 09/26/19 09/27/19 19:00 07:00 Intake Total 1040 ml Balance 1040 ml Intake Oral 1040 ml # Voids 5 4 Objective PHYSICAL EXAMINATION: GENERAL: The patient is a well-developed, well-nourished female, in no apparent distress. HEENT: Eyes, pupils equal and responsive to light and accommodation. Extraocular movements are intact. NECK: Supple without lymphadenopathy. CHEST: Lungs are clear to auscultation bilaterally without wheezes or rales. CARDIOVASCULAR: Regular rate. S1-S2 are normal without murmurs, rubs, or gallops. ABDOMEN: Soft, nontender, nondistended with positive bowel sounds. No evidence of hepatosplenomegaly. Currently no rebound or guarding noted. EXTREMITIES: Negative for clubbing, cyanosis, or edema. RECTAL/GENITAL: Not performed. NEUROLOGICAL: Cranial nerves II through XII are grossly intact without focal deficits. Motor strength is 5/5 bilaterally. Deep tendon reflexes are 2+, plantar. Assessment/Plan Assessment/Plan ASSESSMENT: This is an 79-year-old female. 1. Generalized weakness. 2. Severe anemia. 3. Chronic atrial fibrillation. 4. Polycythemia vera. 5. History of cerebrovascular accident/transient ischemic attack. 6. Obstructive sleep apnea. 7. Coronary artery disease. 8. Hypercholesterolemia. 9. Congestive heart failure. 10. History of sick sinus syndrome. 11. History of right hemothorax. 12. Protein calorie malnutrition TREATMENT: 1. Generalized weakness. This is probably secondary to severe anemia as below. 2. Severe anemia-macrocytic anemia A hematology consultation has been obtained with Dr Kaplan. The patient is S/P transfusion 4 units of packed RBCs. S/P IV venofer X 5 days. Hemoglobin stable for 5 days. GI consultation =Dr Kaiser.; Patient refused colonoscopy 3. Polycythemia vera, as above. 4. Chronic atrial fibrillation/coronary artery disease. A cardiology consultation has been obtained with Dr. Freitas. 5. Sick sinus syndrome. The patient is status post pacemaker implantation. Await pacemaker interrogation 6. Hypercholesterolemia. 7. History of congestive heart failure. 8. History of right hemothorax, status post VATS procedure. 9. Await colonoscopy 10. Patient Refused ultrasound 11. Discharge planning=Home with [facility] Roshan Edwards MD Sep 27, 2019 14:29
[2019-09-27 16:00] VITALS: BP 109/63
--- NOTE | 2019-09-27 17:20 | NUR ---
NURSE HAND-OFF: Important Events on Shift:[case management consult for possible DC home with home health] Patient Status: [stable, asleep in bed] Diet: [Regular soft easy chew] Pending Orders: [none] Pending Results/Labs:[none] Pending MD notification:[none] Latest Vital Signs: Temperature 98.8 , Pulse 67 , B/P 109 /63 , Respiratory Rate 17 , O2 SAT 95 , Nasal Cannula, O2 Flow Rate 2.0 . Vital Sign Comment: [] Latest Yepez Fall Score: 60 Fall Risk: High Risk Safety Measures: Call light Within Reach, Bed Alarm Zone 1, Side Rails Side Rails x2, Bed position Low and Locked. Fall Precautions: Yellow Socks Yellow Gown Door Sign Patient Fall Education Report given to [IRA Dennison].
--- NOTE | 2019-09-27 19:15 | NUR ---
NURSE HAND-OFF: Important Events on Shift: Planned for DC tomorrow with services Patient Status: stable, fall risk Diet: Regular soft easy chew Pending Orders: n/a Pending Results/Labs:CBC, BMP Pending MD notification: n/a Latest Vital Signs: Temperature 98.8 , Pulse 67 , B/P 109 /63 , Respiratory Rate 17 , O2 SAT 95 , Nasal Cannula, O2 Flow Rate 2.0 . Vital Sign Comment: stable Latest Yepez Fall Score: 60 Fall Risk: High Risk Safety Measures: Call light Within Reach, Bed Alarm Zone 1, Side Rails Side Rails x2, Bed position Low and Locked. Fall Precautions: Yellow Socks Yellow Gown Door Sign Patient Fall Education Report given to IRA Brown. Endorsed POC.
--- NOTE | 2019-09-27 19:28 | NUR ---
NURSE NOTES: Pt. received from IRA Dennison. Pt. sleeping in bed, breathing even even and unlabored on 2L NC, no indications of respiratory distress and no indications of pain. IV noted on right forearm, saline locked. Bed is low and locked, side rails x2 up, bed alarm active, and call light in reach.
[2019-09-27 19:57] VITALS: BP 94/52
[2019-09-28] VITALS: BP 97/53
[2019-09-28 04:00] VITALS: BP 100/53
--- NOTE | 2019-09-28 04:22 | NUR ---
NURSE NOTES: Pt. oob x2 to bedside commode with full transfer assist, poor activity tolerance. Assisted with oral care, pt. tolerated well.
[2019-09-28 06:11] LABS: EOSINOPHILS % (AUTO) 1.1 % (0.0-3.0); HEMATOCRIT 26.2 % (37.0-47.0); HEMOGLOBIN 8.2 G/DL (12.0-16.0); LYMPHOCYTES % (AUTO) 25.2 % (20.0-45.0); MEAN CORPUSCULAR VOLUME 91 FL (80-99); MONOCYTES % (AUTO) 3.9 % (1.0-10.0); NEUTROPHILS % (AUTO) 65.8 % (45.0-75.0); PLATELET COUNT 168 K/UL (150-450); RED BLOOD COUNT 2.89 M/UL (4.20-5.40); RED CELL DISTRIBUTION WIDTH 20.3 % (11.6-14.8)
[2019-09-28 06:26] LABS: ANION GAP 7 mmol/L (5-15); BLOOD UREA NITROGEN 20 mg/dL (7-18); CALCIUM 8.1 MG/DL (8.5-10.1); CARBON DIOXIDE 28 MMOL/L (21-32); CHLORIDE 107 MMOL/L (98-107); CREATININE 0.7 MG/DL (0.55-1.30); SODIUM 142 MMOL/L (136-145)
--- NOTE | 2019-09-28 07:16 | NUR ---
NURSE HAND-OFF: Important Events on Shift:[pt. ambulatory with total assist to [facility]] Patient Status: [stable] Diet: [Regular, soft easy chew] Pending Orders: [OB stool x2] Pending Results/Labs:[na] Pending MD notification:[na] Latest Vital Signs: Temperature 97.0 , Pulse 65 , B/P 100 /53 , Respiratory Rate 18 , O2 SAT 93 , Nasal Cannula, O2 Flow Rate 2.0 . Vital Sign Comment: [stable] Latest Yepez Fall Score: 60 Fall Risk: High Risk Safety Measures: Call light Within Reach, Bed Alarm Zone 1, Side Rails Side Rails x2, Bed position Low and Locked. Fall Precautions: Yellow Socks Yellow Gown Door Sign Patient Fall Education Report given to [IRA Josue].
--- NOTE | 2019-09-28 07:20 | Hematology/Onc Progress Note ---
Assessment/Plan Assessment/Plan ASSESSMENT AND RECOMMENDATIONS # Polycythemia vera, JAK2+++. In prior was on hydroxyurea --> obtain jak2 level--> was detected -> consider outpatient hydrea when h/h better --> imaging abd us ordered - Splenomegaly. 3 cm cyst within the spleen probably complex with at least one or 2 septations. Trace right pleural effusion. Gallbladder sludge versus stones. --> likely will need better titration of hydrea on discharged # Pancytopenia now with initially with anemia of chronic disease due to underlying chronic medical issues, multifactorial, also due to polycythemia vera , hgb 5 on admission --> Anemia workup has been ordered, rule out gi bleed - results noted and cw acd --> No evidence of hemolysis is noted, peripheral smear has been reviewed. --> Hgb goal >7. Transfuse prn --> S/P IV iron x 5 days 08/06/18 --> Medications have been reviewed --> low threshold for gi evaluation in case has occult --> Hgb trend:4.8-->5.1-->9-->8.9-->8.1-->8.2 --> wbc 3.8-->4 --> plt 143-->168 --> Patient received an EGD by GI at that time that showed gastritis. No varices # Vertigo. --> per neuro as needed # Atrial fibrillation with rapid ventricular rate. --> Serial troponin levels will be performeD prior and neg --> started on amio for rapid ventricular rate. --> per cards # Hypertension. Cont on clonidine # Obstructive sleep apnea. # Coronary artery disease. # Hypercholesteremia. # Congestive heart failure. # Dvt ppx scds The time the the note is entered does not reflect the time the patient was examined. I greatly appreciate the consultation. Subjective Constitutional: Denies: no symptoms, chills, fever, malaise, weakness, other HEENT: Denies: no symptoms, eye pain, blurred vision, tearing, double vision, ear pain, ear discharge, nose pain, nose congestion, throat pain, throat swelling, mouth pain, mouth swelling, other Respiratory: Denies: no symptoms, cough, shortness of breath, SOB with excertion, SOB at rest, sputum, wheezing, other Gastrointestinal/Abdominal: Denies: no symptoms, abdomen distended, abdominal pain, black stools, tarry stools, blood in stool, constipated, diarrhea, difficulty swallowing, nausea, poor appetite, poor fluid intake, rectal bleeding , vomiting, other Genitourinary: Denies: no symptoms, burning, discharge, frequency, flank pain, hematuria, incontinence, pain, urgency, other Neurologic/Psychiatric: Denies: no symptoms, anxiety, depressed, emotional problems, headache, numbness, paresthesia, pre-existing deficit, seizure, tingling, tremors, weakness, other Endocrine: Denies: no symptoms, excessive sweating, flushing, intolerance to cold, intolerance to heat, increased hunger, increased thirst, increased urine, unexplained weight gain, unexplained weight loss, other Allergies: Coded Allergies: No Known Allergies (Unverified , 04/24/18) Subjective 09/25 no major events, no bleeding, labs noted, no night sweats, hgb 8.4, wbc 3.9 09/26 asleep, no events, no bleeding, cbc and bmp noted, dw rn 09/27 labs are noted, no bleeding, dw rn, no night sweats, comfortable Objective Objective Current Medications Medications (Trade) Dose Ordered Sig/Escobar Route PRN Reason Start Time Stop Time Status Last Admin Dose Admin Acetaminophen (Tylenol) 650 mg Q4H PRN ORAL T>100.5 09/24/19 01:03 10/21/19 01:02 Amiodarone HCl (Cordarone) 200 mg DAILY ORAL 09/24/19 09:00 12/21/19 08:59 09/27/19 09:39 Digoxin (Lanoxin) 0.125 mg DAILY ORAL 09/24/19 09:00 12/22/19 08:59 09/27/19 09:39 Folic Acid (Folate) 1 mg DAILY ORAL 09/24/19 09:00 10/24/19 08:59 09/27/19 09:40 Gabapentin (Neurontin) 300 mg THREE TIMES A DAY ORAL 09/24/19 09:00 10/22/19 08:59 09/27/19 17:35 Metoprolol Tartrate (Lopressor) 50 mg EVERY 12 HOURS ORAL 09/24/19 21:00 12/20/19 20:59 09/27/19 09:39 Ondansetron HCl (Zofran) 4 mg Q6H PRN IVP Nausea & Vomiting 09/24/19 01:15 10/21/19 19:14 Last 24 Hour Vital Signs Date Time Temp Pulse Resp B/P (MAP) Pulse Ox O2 Delivery O2 Flow Rate FiO2 09/28/19 04:00 97.0 65 18 100/53 (69) 93 09/28/19 00:00 97.0 63 20 97/53 (68) 95 09/27/19 21:00 75 94/52 09/27/19 21:00 Nasal Cannula 2.0 09/27/19 19:57 98.2 75 18 94/52 (66) 93 09/27/19 16:00 98.8 67 17 109/63 (78) 95 09/27/19 12:00 98.1 68 17 108/53 (71) 95 09/27/19 09:39 61 102/59 09/27/19 09:39 61 09/27/19 09:00 Nasal Cannula 2.0 09/27/19 08:00 97.5 61 18 102/59 (73) 98 09/27/19 04:00 98.2 65 18 105/64 (78) 93 09/27/19 00:00 98.6 62 18 110/68 (82) 95 09/26/19 21:55 68 119/56 09/26/19 21:00 Nasal Cannula 2.0 09/26/19 20:00 98.1 68 17 119/56 (77) 94 09/26/19 16:00 98.9 64 17 106/55 (72) 92 09/26/19 12:00 96.8 61 20 102/66 (78) 91 09/26/19 09:00 62 97/60 09/26/19 09:00 Nasal Cannula 2.0 09/26/19 08:53 64 09/26/19 08:00 96.9 64 17 100/55 (70) 92 Intake and Output 09/27/19 09/28/19 19:00 07:00 Intake Total 700 ml 200 ml Output Total 400 ml Balance 700 ml -200 ml Intake Oral 700 ml 200 ml Output Urine Total 400 ml # Voids 4 2 # Bowel Movements 1 Labs Test 09/26/19 06:59 09/27/19 06:20 09/28/19 05:35 White Blood Count 3.9 K/UL (4.8-10.8) 3.6 K/UL (4.8-10.8) 4.0 K/UL (4.8-10.8) Red Blood Count 2.92 M/UL (4.20-5.40) 2.84 M/UL (4.20-5.40) 2.89 M/UL (4.20-5.40) Hemoglobin 8.4 G/DL (12.0-16.0) 8.1 G/DL (12.0-16.0) 8.2 G/DL (12.0-16.0) Hematocrit 26.1 % (37.0-47.0) 25.5 % (37.0-47.0) 26.2 % (37.0-47.0) Mean Corpuscular Volume 89 FL (80-99) 90 FL (80-99) 91 FL (80-99) Mean Corpuscular Hemoglobin 28.6 PG (27.0-31.0) 28.7 PG (27.0-31.0) 28.5 PG (27.0-31.0) Mean Corpuscular Hemoglobin Concent 32.1 G/DL (32.0-36.0) 31.9 G/DL (32.0-36.0) 31.4 G/DL (32.0-36.0) Red Cell Distribution Width 19.1 % (11.6-14.8) 19.2 % (11.6-14.8) 20.3 % (11.6-14.8) Platelet Count 144 K/UL (150-450) 143 K/UL (150-450) 168 K/UL (150-450) Mean Platelet Volume 10.6 FL (6.5-10.1) 10.2 FL (6.5-10.1) 12.0 FL (6.5-10.1) Neutrophils (%) (Auto) 66.6 % (45.0-75.0) 65.4 % (45.0-75.0) 65.8 % (45.0-75.0) Lymphocytes (%) (Auto) 24.5 % (20.0-45.0) 24.3 % (20.0-45.0) 25.2 % (20.0-45.0) Monocytes (%) (Auto) 3.3 % (1.0-10.0) 4.1 % (1.0-10.0) 3.9 % (1.0-10.0) Eosinophils (%) (Auto) 0.9 % (0.0-3.0) 1.5 % (0.0-3.0) 1.1 % (0.0-3.0) Basophils (%) (Auto) 4.7 % (0.0-2.0) 4.7 % (0.0-2.0) 4.0 % (0.0-2.0) Sodium Level 139 MMOL/L (136-145) 141 MMOL/L (136-145) 142 MMOL/L (136-145) Potassium Level 4.1 MMOL/L (3.5-5.1) 4.2 MMOL/L (3.5-5.1) 4.0 MMOL/L (3.5-5.1) Chloride Level 106 MMOL/L (98-107) 106 MMOL/L (98-107) 107 MMOL/L (98-107) Carbon Dioxide Level 27 MMOL/L (21-32) 29 MMOL/L (21-32) 28 MMOL/L (21-32) Anion Gap 6 mmol/L (5-15) 6 mmol/L (5-15) 7 mmol/L (5-15) Blood Urea Nitrogen 17 mg/dL (7-18) 21 mg/dL (7-18) 20 mg/dL (7-18) Creatinine 0.9 MG/DL (0.55-1.30) 0.7 MG/DL (0.55-1.30) 0.7 MG/DL (0.55-1.30) Estimat Glomerular Filtration Rate > 60 mL/min (>60) > 60 mL/min (>60) > 60 mL/min (>60) Glucose Level 86 MG/DL (74-106) 86 MG/DL (74-106) 83 MG/DL (74-106) Calcium Level 8.5 MG/DL (8.5-10.1) 8.5 MG/DL (8.5-10.1) 8.1 MG/DL (8.5-10.1) HIV (1&2) Antibody Rapid Negative (NEGATIVE) Height (Feet): 5 Height (Inches): 1.00 Weight (Pounds): 118 Objective Physical Exam: GENERAL: Awake_alert_ nontoxic, no acute distress EYES: Extraocular muscles are intact. Conjunctivae clear ENT: External nose and ear normal_in_appearance. NECK: No JVD. No meningismus. No thyromegaly. RESP: Normal respiratory effort. Symmetric rise. CARDIAC: Regular rate and regular rhythm on_auscultation ABDOMEN: Soft. Nondistended. Nontender MSK: Normal muscle tone, without rigidity. SKIN: Warm and dry. No visible cyanosis NEUROLOGIC: Alert, oriented x3. Psych: Normal mood and affect Best Kaplan MD Sep 28, 2019 07:19
--- NOTE | 2019-09-28 07:35 | NUR ---
NURSE NOTES: Report received from Kevin ROTH. Patient seen on rounds AxOx3, not in distress, O2 at 2lpm via NC. Pt has no complaints of pain at this time. Assisted to bedside commode with moderate assist. Pt able to stand and pivot, pt is continent to bladder and bowel functions. PIV on right forearm patent and intact. Bed low and locked, siderails up x2, call light placed within reach and instructed to call nurse for assistance. Will continue to monitor.
[2019-09-28 08:00] VITALS: BP 117/69
[2019-09-28] MEDS: Metoprolol Tartrate 50mg tab ORAL SCH ×2 (08:18→20:45)
[2019-09-28] MEDS: Digoxin 0.125mg tab ORAL SCH (08:18)
[2019-09-28] MEDS: Amiodarone 200mg tab ORAL SCH (08:18)
--- NOTE | 2019-09-28 10:22 | NUR ---
NURSE NOTES: Stool specimen collected for stool OB and sent to lab (2/3).
--- NOTE | 2019-09-28 11:59 | General Progress Note ---
Assessment/Plan Assessment/Plan: 1. History of chronic anemia. 2. Polycythemia rubra vera. 3. Atrial fibrillation. 4. Hypertension. 5. Obstructive sleep apnea. 6. Coronary artery disease. 7. History of AR in the past. 8. Hypercholesteremia. 9. CHF. 10. UTI/pyelonephritis. 11. gallstones 12. hepatomegaly 13. splenomegaly 14. right pleural effusion patient refused colonoscopy fu stool ob>>>neg fu H&H>>> stable abd us and CT>>> reviewed will fu Subjective ROS Limited/Unobtainable: No Allergies: Coded Allergies: No Known Allergies (Unverified , 04/24/18) Objective Last 24 Hour Vital Signs Date Time Temp Pulse Resp B/P (MAP) Pulse Ox O2 Delivery O2 Flow Rate FiO2 09/28/19 09:00 Nasal Cannula 2.0 09/28/19 08:18 63 117/69 09/28/19 08:18 63 09/28/19 08:00 97.0 63 18 117/69 (85) 98 09/28/19 04:00 97.0 65 18 100/53 (69) 93 09/28/19 00:00 97.0 63 20 97/53 (68) 95 09/27/19 21:00 75 94/52 09/27/19 21:00 Nasal Cannula 2.0 09/27/19 19:57 98.2 75 18 94/52 (66) 93 09/27/19 16:00 98.8 67 17 109/63 (78) 95 09/27/19 12:00 98.1 68 17 108/53 (71) 95 Intake and Output 09/27/19 09/28/19 19:00 07:00 Intake Total 700 ml 200 ml Output Total 400 ml Balance 700 ml -200 ml Intake Oral 700 ml 200 ml Output Urine Total 400 ml # Voids 4 2 # Bowel Movements 1 Laboratory Tests 09/28/19 05:35: White Blood Count 4.0L, Red Blood Count 2.89L, Hemoglobin 8.2L, Hematocrit 26.2L , Mean Corpuscular Volume 91, Mean Corpuscular Hemoglobin 28.5, Mean Corpuscular Hemoglobin Concent 31.4L, Red Cell Distribution Width 20.3H, Platelet Count 168, Mean Platelet Volume 12.0H, Neutrophils (%) (Auto) 65.8, Lymphocytes (%) (Auto) 25.2, Monocytes (%) (Auto) 3.9, Eosinophils (%) (Auto) 1.1, Basophils (%) (Auto) 4.0H, Sodium Level 142, Potassium Level 4.0, Chloride Level 107, Carbon Dioxide Level 28, Anion Gap 7, Blood Urea Nitrogen 20H, Creatinine 0.7, Estimat Glomerular Filtration Rate > 60, Glucose Level 83, Calcium Level 8.1L 09/28/19 10:15: Stool Occult Blood [Pending] Height (Feet): 5 Height (Inches): 1.00 Weight (Pounds): 118 General Appearance: alert EENT: normal ENT inspection Neck: supple Cardiovascular: regular rhythm Respiratory/Chest: lungs clear Abdomen: normal bowel sounds, non tender, soft Extremities: non-tender Blair Kaiser MD Sep 28, 2019 11:59
[2019-09-28 12:00] VITALS: BP 96/55
--- NOTE | 2019-09-28 12:35 | Pulmonology Progress Note ---
Subjective ROS Limited/Unobtainable: No Constitutional: Reports: no symptoms HEENT: Repors: no symptoms Respiratory: Reports: no symptoms Allergies: Coded Allergies: No Known Allergies (Unverified , 04/24/18) Objective Last 24 Hour Vital Signs Date Time Temp Pulse Resp B/P (MAP) Pulse Ox O2 Delivery O2 Flow Rate FiO2 09/28/19 12:00 98.1 62 16 96/55 (69) 95 09/28/19 09:00 Nasal Cannula 2.0 09/28/19 08:18 63 117/69 09/28/19 08:18 63 09/28/19 08:00 97.0 63 18 117/69 (85) 98 09/28/19 04:00 97.0 65 18 100/53 (69) 93 09/28/19 00:00 97.0 63 20 97/53 (68) 95 09/27/19 21:00 75 94/52 09/27/19 21:00 Nasal Cannula 2.0 09/27/19 19:57 98.2 75 18 94/52 (66) 93 09/27/19 16:00 98.8 67 17 109/63 (78) 95 Intake and Output 09/27/19 09/28/19 19:00 07:00 Intake Total 700 ml 200 ml Output Total 400 ml Balance 700 ml -200 ml Intake Oral 700 ml 200 ml Output Urine Total 400 ml # Voids 4 2 # Bowel Movements 1 General Appearance: no acute distress, cachetic - [place] speaking female HEENT: normocephalic, atraumatic Respiratory: chest wall non-tender, lungs clear, no respiratory distress, no accessory muscle use Cardiovascular: normal peripheral pulses, normal rate Abdomen: normal bowel sounds, soft, non tender Skin: no rash, other - posterior and lateral right chest healed scar Neurologic: jack spooler tender II-XII grossly normal, alert, responsive Lymphatic: no neck adenopathy Musculoskeletal: atrophy - BLE Laboratory Tests 09/28/19 05:35: White Blood Count 4.0L, Red Blood Count 2.89L, Hemoglobin 8.2L, Hematocrit 26.2L , Mean Corpuscular Volume 91, Mean Corpuscular Hemoglobin 28.5, Mean Corpuscular Hemoglobin Concent 31.4L, Red Cell Distribution Width 20.3H, Platelet Count 168, Mean Platelet Volume 12.0H, Neutrophils (%) (Auto) 65.8, Lymphocytes (%) (Auto) 25.2, Monocytes (%) (Auto) 3.9, Eosinophils (%) (Auto) 1.1, Basophils (%) (Auto) 4.0H, Sodium Level 142, Potassium Level 4.0, Chloride Level 107, Carbon Dioxide Level 28, Anion Gap 7, Blood Urea Nitrogen 20H, Creatinine 0.7, Estimat Glomerular Filtration Rate > 60, Glucose Level 83, Calcium Level 8.1L 09/28/19 10:15: Stool Occult Blood [Pending] Current Medications Medications (Trade) Dose Ordered Sig/Escobar Route PRN Reason Start Time Stop Time Status Last Admin Dose Admin Acetaminophen (Tylenol) 650 mg Q4H PRN ORAL T>100.5 09/24/19 01:03 10/21/19 01:02 Amiodarone HCl (Cordarone) 200 mg DAILY ORAL 09/24/19 09:00 12/21/19 08:59 09/28/19 08:18 Digoxin (Lanoxin) 0.125 mg DAILY ORAL 09/24/19 09:00 12/22/19 08:59 09/28/19 08:18 Folic Acid (Folate) 1 mg DAILY ORAL 09/24/19 09:00 10/24/19 08:59 09/28/19 08:19 Gabapentin (Neurontin) 300 mg THREE TIMES A DAY ORAL 09/24/19 09:00 10/22/19 08:59 09/28/19 12:23 Metoprolol Tartrate (Lopressor) 50 mg EVERY 12 HOURS ORAL 09/24/19 21:00 12/20/19 20:59 09/28/19 08:18 Ondansetron HCl (Zofran) 4 mg Q6H PRN IVP Nausea & Vomiting 09/24/19 01:15 10/21/19 19:14 Assessment/Plan Problems: (1) Anemia (2) Myelofibrosis (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 f/u GI recommendations symptomatic treatment Kelly Mejia MD Sep 28, 2019 12:35
--- NOTE | 2019-09-28 13:14 | Surgery Progress Note ---
Surgery Progress Note Subjective Symptoms: improved, pain absent, tolerating diet, passing flatus, BM Objective Last 24 Hour Vital Signs Date Time Temp Pulse Resp B/P (MAP) Pulse Ox O2 Delivery O2 Flow Rate FiO2 09/28/19 12:00 98.1 62 16 96/55 (69) 95 09/28/19 09:00 Nasal Cannula 2.0 09/28/19 08:18 63 117/69 09/28/19 08:18 63 09/28/19 08:00 97.0 63 18 117/69 (85) 98 09/28/19 04:00 97.0 65 18 100/53 (69) 93 09/28/19 00:00 97.0 63 20 97/53 (68) 95 09/27/19 21:00 75 94/52 09/27/19 21:00 Nasal Cannula 2.0 09/27/19 19:57 98.2 75 18 94/52 (66) 93 09/27/19 16:00 98.8 67 17 109/63 (78) 95 I&O Intake and Output 09/27/19 09/28/19 19:00 07:00 Intake Total 700 ml 200 ml Output Total 400 ml Balance 700 ml -200 ml Intake Oral 700 ml 200 ml Output Urine Total 400 ml # Voids 4 2 # Bowel Movements 1 Cardiovascular: RSR Respiratory: clear, decreased breath sounds Abdomen: soft, non-tender, present bowel sounds Extremities: no edema, no tenderness, no cyanosis Laboratory Tests Test 09/28/19 05:35 09/28/19 10:15 White Blood Count 4.0 K/UL (4.8-10.8) L Red Blood Count 2.89 M/UL (4.20-5.40) L Hemoglobin 8.2 G/DL (12.0-16.0) L Hematocrit 26.2 % (37.0-47.0) L Mean Corpuscular Volume 91 FL (80-99) Mean Corpuscular Hemoglobin 28.5 PG (27.0-31.0) Mean Corpuscular Hemoglobin Concent 31.4 G/DL (32.0-36.0) L Red Cell Distribution Width 20.3 % (11.6-14.8) H Platelet Count 168 K/UL (150-450) Mean Platelet Volume 12.0 FL (6.5-10.1) H Neutrophils (%) (Auto) 65.8 % (45.0-75.0) Lymphocytes (%) (Auto) 25.2 % (20.0-45.0) Monocytes (%) (Auto) 3.9 % (1.0-10.0) Eosinophils (%) (Auto) 1.1 % (0.0-3.0) Basophils (%) (Auto) 4.0 % (0.0-2.0) H Sodium Level 142 MMOL/L (136-145) Potassium Level 4.0 MMOL/L (3.5-5.1) Chloride Level 107 MMOL/L (98-107) Carbon Dioxide Level 28 MMOL/L (21-32) Anion Gap 7 mmol/L (5-15) Blood Urea Nitrogen 20 mg/dL (7-18) H Creatinine 0.7 MG/DL (0.55-1.30) Estimat Glomerular Filtration Rate > 60 mL/min (>60) Glucose Level 83 MG/DL (74-106) Calcium Level 8.1 MG/DL (8.5-10.1) L Stool Occult Blood Pending Plan Problems: (1) ACS (acute coronary syndrome) (2) Pyelonephritis (3) CAD (coronary artery disease) (4) COPD (chronic obstructive pulmonary disease) (5) positional vertigo (6) KELVIN (obstructive sleep apnea) (7) Peripheral neuropathy (8) Myelofibrosis (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 hx of bleeding held anticoagulation since prior right hemothorax s/p evacuation and vats transfusing prbc coags noted may need ffp ddx includes possible GI hemorrhage. protonix ordered pending GI eval consider scope CT once stable US abd ordered thank you will follow with recs trend h/h transfuse prn Gallbladder demonstrates a gallstone. This also reported on same day CT. Sonographic Camacho's sign is negative. Common bile duct measures 5 mm in diameter. No intrahepatic biliary ductal dilatation. Liver demonstrates normal echogenicity, no focal abnormality. Portal vein and hepatic veins are patent. Pancreas is unremarkable. The spleen demonstrates a complex upper pole cyst that measures 2.7 cm in diameter. The spleen is borderline enlarged. There are bilateral pleural effusions Left kidney measures 10.2 cm in length. Right kidney measures 9.2 cm length. Both kidneys demonstrate normal echogenicity. There is no hydronephrosis. No focal abnormality . Non-aneurysmal abdominal aorta . Impression: Cholelithiasis. Negative for dilated bile ducts 2.7 cm complex upper pole splenic cyst, also reported on prior imaging studies. Bilateral pleural effusions Chest: The lungs demonstrate a mosaic perfusion pattern, which is more striking than that seen previously. Some atelectasis and consolidation is seen involving both lower lobes. This appears similar on the right, slightly more extensive on the left. There is a moderate-sized right pleural effusion which appears similar to the previous study. There is a small left pleural effusion which is new since the previous study. Previous exam demonstrated a 1.5 cm opacity in the inferior right azygoesophageal recess. This is not evident currently although could be obscured by surrounding atelectatic lung. The heart is enlarged. There is a left chest pacemaker again demonstrated. No pericardial effusion. No mediastinal or hilar mass or adenopathy. Right lower pole thyroid calcification is again demonstrated. No axillary or chest wall mass or adenopathy. There are fairly profound degenerative changes of the bilateral shoulders. There is evidence of interim healing of previously demonstrated right rib fractures, nearly but not completely healed as some fracture lines persist. There are degenerative changes of the thoracic spine noted. Abdomen pelvis: What is probably a normal appendix is demonstrated. There is extensive colonic diverticulosis. No evidence of diverticulitis. The rectum is mildly distended, mostly with gas with some stool as well. No small bowel distention or small bowel wall thickening. Numerous surgical clips are seen in the retroperitoneum and left side of the pelvis. The stomach and duodenum are unremarkable. The gallbladder contains a gallstone. No biliary ductal dilatation. The liver is mildly enlarged. The pancreas is unremarkable. The spleen is enlarged, measuring 14 cm long axis dimension. It demonstrates a complex upper pole cyst, also previously demonstrated the adrenals and kidneys are unremarkable. There is a retroaortic left renal vein incidentally noted. The uterus is absent.. The bladder is unremarkable. The bones demonstrate degenerative spondylosis changes. IMPRESSION: Cardiomegaly Unchanged moderate right pleural effusion, since June 2019. New small left pleural effusion Bilateral mosaic perfusion pattern, probably on the basis of pulmonary edema Bilateral basilar compressive atelectasis and possible consolidation Interim healing of previously demonstrated right rib fractures Previously demonstrated right azygoesophageal recess lesion is no longer evident , may have resolved or may be obscured by surrounding lung parenchyma. Cholelithiasis Hepatomegaly Splenomegaly Splenic cystic lesion, unchanged from prior exam Postsurgical changes as described, including pacemaker, evidence of prior hysterectomy, evidence of prior pelvic lymph node dissection, prior hysterectomy Errol Estrada Sep 28, 2019 13:14
[2019-09-28 16:06] VITALS: BP 99/54
--- NOTE | 2019-09-28 16:12 | Cardiac Electrophysiology PN ---
Assessment/Plan Assessment/Plan 1. Weakness due to profound anemia, hemoglobin of 4.8. S/P four units of blood transfusion. GI workup for last two years had two endoscopies with last one in July 2018, which was negative for obvious GI bleeding. Stool OBs are negative. S/P ABD US, Chests CT. Refused Colonoscopy 2. Status post [employer] PPM in 2010 and gen change by me in 2019 with normal function by interrogation 3. PAF with RVR. In atrially paced rhythm on amiodarone 200 mg daily, metoprolol 50 mg bid and digoxin 0.125 mg daily . Off anticoagulation for severe anemia requiring multiple blood transfusions in the past. 4. Hypertension, on metoprolol. 5. Urinary tract infection. 6. History of polycythemia vera. 7. Severe pulmonary hypertension with PA pressure of 71. 8. Hemothorax status post VATS by Dr. Malik in 07/2019. RILEY RN. Subjective Subjective Alert in NAD, No CP. Is weak. Had diarrhea today Objective Last 24 Hour Vital Signs Date Time Temp Pulse Resp B/P (MAP) Pulse Ox O2 Delivery O2 Flow Rate FiO2 09/28/19 16:06 99.0 60 18 99/54 (69) 96 09/28/19 12:00 98.1 62 16 96/55 (69) 95 09/28/19 09:00 Nasal Cannula 2.0 09/28/19 08:18 63 117/69 09/28/19 08:18 63 09/28/19 08:00 97.0 63 18 117/69 (85) 98 09/28/19 04:00 97.0 65 18 100/53 (69) 93 09/28/19 00:00 97.0 63 20 97/53 (68) 95 09/27/19 21:00 75 94/52 09/27/19 21:00 Nasal Cannula 2.0 09/27/19 19:57 98.2 75 18 94/52 (66) 93 Intake and Output 09/27/19 09/28/19 19:00 07:00 Intake Total 700 ml 200 ml Output Total 400 ml Balance 700 ml -200 ml Intake Oral 700 ml 200 ml Output Urine Total 400 ml # Voids 4 2 # Bowel Movements 1 Laboratory Tests Test 09/28/19 05:35 09/28/19 10:15 White Blood Count 4.0 K/UL (4.8-10.8) L Red Blood Count 2.89 M/UL (4.20-5.40) L Hemoglobin 8.2 G/DL (12.0-16.0) L Hematocrit 26.2 % (37.0-47.0) L Mean Corpuscular Volume 91 FL (80-99) Mean Corpuscular Hemoglobin 28.5 PG (27.0-31.0) Mean Corpuscular Hemoglobin Concent 31.4 G/DL (32.0-36.0) L Red Cell Distribution Width 20.3 % (11.6-14.8) H Platelet Count 168 K/UL (150-450) Mean Platelet Volume 12.0 FL (6.5-10.1) H Neutrophils (%) (Auto) 65.8 % (45.0-75.0) Lymphocytes (%) (Auto) 25.2 % (20.0-45.0) Monocytes (%) (Auto) 3.9 % (1.0-10.0) Eosinophils (%) (Auto) 1.1 % (0.0-3.0) Basophils (%) (Auto) 4.0 % (0.0-2.0) H Sodium Level 142 MMOL/L (136-145) Potassium Level 4.0 MMOL/L (3.5-5.1) Chloride Level 107 MMOL/L (98-107) Carbon Dioxide Level 28 MMOL/L (21-32) Anion Gap 7 mmol/L (5-15) Blood Urea Nitrogen 20 mg/dL (7-18) H Creatinine 0.7 MG/DL (0.55-1.30) Estimat Glomerular Filtration Rate > 60 mL/min (>60) Glucose Level 83 MG/DL (74-106) Calcium Level 8.1 MG/DL (8.5-10.1) L Stool Occult Blood Pending Objective HEAD AND NECK: No JVD or carotid bruits. Sclerae are very pale. LUNGS: Clear. CARDIOVASCULAR: Shows regular S1 and S2 with no gallop. Pacemaker in the left subclavian, healed. ABDOMEN: Soft. EXTREMITIES: No pitting edema. River Freitas MD Sep 28, 2019 16:12
--- NOTE | 2019-09-28 16:56 | NUR ---
CASE MANAGEMENT:REVIEW SI;SEVERE ANEMIA. A-FIB. RT PLEURAL EFFUSION. POLYCYTHEMIA RUBRA VERA. 99.0 65 18 96/55 93% 2L NC WBC 4.0 H/H 8.2/26.2 BUN 20 IS;LOPRESSOR PO Q12 AMIODARONE PO QD LANOXIN PO QD FOLATE PO QD GABAPENTIN PO TID MED SURG STATUS DCP;FROM HOME PLAN; HOME WITH HOME HEALTH
--- NOTE | 2019-09-28 17:01 | NUR ---
DISCHARGE PLANNING S/W LIZABETH AT [facility]. THEY HAVE ACCEPTED THE PATIENT AND WILL PROVIDE SERVICE. DR MEYER INFORMED. AWAITING RESPONSE FOR DC ORDER.
[2019-09-28] MEDS ORDERED: Digoxin ORAL (18:12)
--- NOTE | 2019-09-28 18:14 | Internal Med Progress Note ---
Subjective Date of Service: Sep 28, 2019 Physician Name Roshan Edwards Attending Physician Antonio Adrian MD Current Medications Medications (Trade) Dose Ordered Sig/Escobar Route PRN Reason Start Time Stop Time Status Last Admin Dose Admin Acetaminophen (Tylenol) 650 mg Q4H PRN ORAL T>100.5 09/24/19 01:03 10/21/19 01:02 Amiodarone HCl (Cordarone) 200 mg DAILY ORAL 09/24/19 09:00 12/21/19 08:59 09/28/19 08:18 Digoxin (Lanoxin) 0.125 mg DAILY ORAL 09/24/19 09:00 12/22/19 08:59 09/28/19 08:18 Folic Acid (Folate) 1 mg DAILY ORAL 09/24/19 09:00 10/24/19 08:59 09/28/19 08:19 Gabapentin (Neurontin) 300 mg THREE TIMES A DAY ORAL 09/24/19 09:00 10/22/19 08:59 09/28/19 17:03 Metoprolol Tartrate (Lopressor) 50 mg EVERY 12 HOURS ORAL 09/24/19 21:00 12/20/19 20:59 09/28/19 08:18 Ondansetron HCl (Zofran) 4 mg Q6H PRN IVP Nausea & Vomiting 09/24/19 01:15 10/21/19 19:14 Allergies: Coded Allergies: No Known Allergies (Unverified , 04/24/18) ROS Limited/Unobtainable: No Constitutional: Reports: no symptoms HEENT: Reports: no symptoms Cardiovascular: Reports: no symptoms Respiratory: Reports: no symptoms Gastrointestinal/Abdominal: Reports: no symptoms Genitourinary: Reports: no symptoms Neurologic/Psychiatric: Reports: no symptoms Subjective 79 YO F admitted with generalized weakness. Now severe anemia. Cover for Int med-Dr Adrian. Objective Last Vital Signs Date Time Temp Pulse Resp B/P (MAP) Pulse Ox O2 Delivery O2 Flow Rate FiO2 09/28/19 16:06 99.0 60 18 99/54 (69) 96 09/28/19 09:00 Nasal Cannula 2.0 09/25/19 19:10 28 Laboratory Tests Test 09/28/19 05:35 09/28/19 10:15 White Blood Count 4.0 K/UL (4.8-10.8) L Red Blood Count 2.89 M/UL (4.20-5.40) L Hemoglobin 8.2 G/DL (12.0-16.0) L Hematocrit 26.2 % (37.0-47.0) L Mean Corpuscular Volume 91 FL (80-99) Mean Corpuscular Hemoglobin 28.5 PG (27.0-31.0) Mean Corpuscular Hemoglobin Concent 31.4 G/DL (32.0-36.0) L Red Cell Distribution Width 20.3 % (11.6-14.8) H Platelet Count 168 K/UL (150-450) Mean Platelet Volume 12.0 FL (6.5-10.1) H Neutrophils (%) (Auto) 65.8 % (45.0-75.0) Lymphocytes (%) (Auto) 25.2 % (20.0-45.0) Monocytes (%) (Auto) 3.9 % (1.0-10.0) Eosinophils (%) (Auto) 1.1 % (0.0-3.0) Basophils (%) (Auto) 4.0 % (0.0-2.0) H Sodium Level 142 MMOL/L (136-145) Potassium Level 4.0 MMOL/L (3.5-5.1) Chloride Level 107 MMOL/L (98-107) Carbon Dioxide Level 28 MMOL/L (21-32) Anion Gap 7 mmol/L (5-15) Blood Urea Nitrogen 20 mg/dL (7-18) H Creatinine 0.7 MG/DL (0.55-1.30) Estimat Glomerular Filtration Rate > 60 mL/min (>60) Glucose Level 83 MG/DL (74-106) Calcium Level 8.1 MG/DL (8.5-10.1) L Stool Occult Blood Pending Intake and Output 09/27/19 09/28/19 19:00 07:00 Intake Total 700 ml 200 ml Output Total 400 ml Balance 700 ml -200 ml Intake Oral 700 ml 200 ml Output Urine Total 400 ml # Voids 4 2 # Bowel Movements 1 Objective PHYSICAL EXAMINATION: GENERAL: The patient is a well-developed, well-nourished female, in no apparent distress. HEENT: Eyes, pupils equal and responsive to light and accommodation. Extraocular movements are intact. NECK: Supple without lymphadenopathy. CHEST: Lungs are clear to auscultation bilaterally without wheezes or rales. CARDIOVASCULAR: Regular rate. S1-S2 are normal without murmurs, rubs, or gallops. ABDOMEN: Soft, nontender, nondistended with positive bowel sounds. No evidence of hepatosplenomegaly. Currently no rebound or guarding noted. EXTREMITIES: Negative for clubbing, cyanosis, or edema. RECTAL/GENITAL: Not performed. NEUROLOGICAL: Cranial nerves II through XII are grossly intact without focal deficits. Motor strength is 5/5 bilaterally. Deep tendon reflexes are 2+, plantar. Assessment/Plan Assessment/Plan ASSESSMENT: This is an 79-year-old female. 1. Generalized weakness. 2. Severe anemia. 3. Chronic atrial fibrillation. 4. Polycythemia vera. 5. History of cerebrovascular accident/transient ischemic attack. 6. Obstructive sleep apnea. 7. Coronary artery disease. 8. Hypercholesterolemia. 9. Congestive heart failure. 10. History of sick sinus syndrome. 11. History of right hemothorax. 12. Protein calorie malnutrition TREATMENT: 1. Generalized weakness. This is probably secondary to severe anemia as below. 2. Severe anemia-macrocytic anemia A hematology consultation has been obtained with Dr Kaplan. The patient is S/P transfusion 4 units of packed RBCs. S/P IV venofer X 5 days. Hemoglobin stable for 5 days. GI consultation =Dr Kaiser.; Patient refused colonoscopy 3. Polycythemia vera, as above. 4. Chronic atrial fibrillation/coronary artery disease. A cardiology consultation has been obtained with Dr. Freitas. 5. Sick sinus syndrome. The patient is status post pacemaker implantation. Await pacemaker interrogation 6. Hypercholesterolemia. 7. History of congestive heart failure. 8. History of right hemothorax, status post VATS procedure. 9. Await colonoscopy 10. Patient Refused ultrasound 11. Discharge planning=Home [facility] Roshan Edwards MD Sep 28, 2019 18:14
--- NOTE | 2019-09-28 18:34 | NUR ---
NURSE NOTES: Left message with Dr. Kaplan to inform him of discharge plans and if he had any instructions/medications for pt prior to discharge. Awaiting response.
--- NOTE | 2019-09-28 18:45 | NUR ---
NURSE NOTES: Spoke with Eden Moreno, Pt's next of kin to inform her of patient's discharge. Ms. Moreno states that she and her cannot pick her up tonight and must make the necessary arrangements for her house to be ready, they will come to pick patient up in the morning. Informed her that discharge orders have been made for today and she states that they would like to pick her up in the morning. Will endorse to next shift.
--- NOTE | 2019-09-28 18:48 | NUR ---
NURSE NOTES: No discharge instructions/medications from Dr. Kaplan.
--- NOTE | 2019-09-28 19:17 | NUR ---
NURSE HAND-OFF: Important Events on Shift: Pt cleared for discharge however family unavailable to pick out hand tonight, will pick out hand tomorrow morning between 9-10am Patient Status: Stable Diet: Regular, soft easy chew Pending Orders: Stool OB x 1 Pending Results/Labs: Digoxin level in am Pending MD notification: None Latest Vital Signs: Temperature 99.0 , Pulse 60 , B/P 99 /54 , Respiratory Rate 18 , O2 SAT 96 , Nasal Cannula, O2 Flow Rate 2.0 . Vital Sign Comment: Latest Yepez Fall Score: 60 Fall Risk: High Risk Safety Measures: Call light Within Reach, Bed Alarm Zone 1, Side Rails Side Rails x2, Bed position Low and Locked. Fall Precautions: Yellow Socks Yellow Gown Door Sign Patient Fall Education Report given to Chuck ROTH.
[2019-09-28 20:00] VITALS: BP 108/30
--- NOTE | 2019-09-28 20:00 | NUR ---
NURSE NOTES: Received patient asleep in bed, easily arousable. No s/s of acute distress, VSS. Bed low and locked. Bedside commode noted, clean. IV access patent, flushed with normal saline, patient tolerated well.
[2019-09-29] VITALS: BP 102/52
[2019-09-29 04:00] VITALS: BP 99/54
--- NOTE | 2019-09-29 06:53 | Hematology/Onc Progress Note ---
Assessment/Plan Assessment/Plan ASSESSMENT AND RECOMMENDATIONS # Polycythemia vera, JAK2+++. In prior was on hydroxyurea --> obtain jak2 level--> was detected -> consider outpatient hydrea when h/h better --> imaging abd us ordered - Splenomegaly. 3 cm cyst within the spleen probably complex with at least one or 2 septations. Trace right pleural effusion. Gallbladder sludge versus stones. --> likely will need better titration of hydrea on discharged # Pancytopenia now with initially with anemia of chronic disease due to underlying chronic medical issues, multifactorial, also due to polycythemia vera , hgb 5 on admission --> Anemia workup has been ordered, rule out gi bleed - results noted and cw acd --> No evidence of hemolysis is noted, peripheral smear has been reviewed. --> Hgb goal >7. Transfuse prn --> S/P IV iron x 5 days 08/06/18 --> Medications have been reviewed --> low threshold for gi evaluation in case has occult --> Hgb trend:4.8-->5.1-->9-->8.9-->8.1-->8.2 --> wbc 3.8-->4 --> plt 143-->168 --> Patient received an EGD by GI at that time that showed gastritis. No varices # Vertigo. --> per neuro as needed # Atrial fibrillation with rapid ventricular rate. --> Serial troponin levels will be performeD prior and neg --> started on amio for rapid ventricular rate. --> per cards # Hypertension. Cont on clonidine # Obstructive sleep apnea. # Coronary artery disease. # Hypercholesteremia. # Congestive heart failure. # Dvt ppx scds The time the the note is entered does not reflect the time the patient was examined. I greatly appreciate the consultation. Subjective Cardiovascular: Denies: no symptoms, chest pain, edema, irregular heart rate, lightheadedness, palpitations, syncope, other Respiratory: Denies: no symptoms, cough, shortness of breath, SOB with excertion, SOB at rest, sputum, wheezing, other Gastrointestinal/Abdominal: Denies: no symptoms, abdomen distended, abdominal pain, black stools, tarry stools, blood in stool, constipated, diarrhea, difficulty swallowing, nausea, poor appetite, poor fluid intake, rectal bleeding , vomiting, other Genitourinary: Denies: no symptoms, burning, discharge, frequency, flank pain, hematuria, incontinence, pain, urgency, other Endocrine: Denies: no symptoms, excessive sweating, flushing, intolerance to cold, intolerance to heat, increased hunger, increased thirst, increased urine, unexplained weight gain, unexplained weight loss, other Allergies: Coded Allergies: No Known Allergies (Unverified , 04/24/18) Subjective 09/25 no major events, no bleeding, labs noted, no night sweats, hgb 8.4, wbc 3.9 09/26 asleep, no events, no bleeding, cbc and bmp noted, dw rn 09/27 labs are noted, no bleeding, dw rn, no night sweats, comfortable 09/28 remais confused, labs noted, wbc 4, hgb 8.2, no bleeding, pending dc Objective Objective Current Medications Medications (Trade) Dose Ordered Sig/Escobar Route PRN Reason Start Time Stop Time Status Last Admin Dose Admin Acetaminophen (Tylenol) 650 mg Q4H PRN ORAL T>100.5 09/24/19 01:03 10/21/19 01:02 Amiodarone HCl (Cordarone) 200 mg DAILY ORAL 09/24/19 09:00 12/21/19 08:59 09/28/19 08:18 Digoxin (Lanoxin) 0.125 mg DAILY ORAL 09/24/19 09:00 12/22/19 08:59 09/28/19 08:18 Folic Acid (Folate) 1 mg DAILY ORAL 09/24/19 09:00 10/24/19 08:59 09/28/19 08:19 Gabapentin (Neurontin) 300 mg THREE TIMES A DAY ORAL 09/24/19 09:00 10/22/19 08:59 09/28/19 17:03 Metoprolol Tartrate (Lopressor) 50 mg EVERY 12 HOURS ORAL 09/24/19 21:00 12/20/19 20:59 09/28/19 08:18 Ondansetron HCl (Zofran) 4 mg Q6H PRN IVP Nausea & Vomiting 09/24/19 01:15 10/21/19 19:14 Last 24 Hour Vital Signs Date Time Temp Pulse Resp B/P (MAP) Pulse Ox O2 Delivery O2 Flow Rate FiO2 09/29/19 04:00 97.9 60 18 99/54 (69) 95 09/29/19 00:00 99.9 61 18 102/52 (69) 95 09/28/19 21:40 Nasal Cannula 2.0 09/28/19 20:45 60 99/54 09/28/19 20:00 99.5 61 18 108/30 (56) 95 09/28/19 19:57 96 Nasal Cannula 2.0 28 09/28/19 16:06 99.0 60 18 99/54 (69) 96 09/28/19 12:00 98.1 62 16 96/55 (69) 95 09/28/19 09:00 Nasal Cannula 2.0 09/28/19 08:18 63 117/69 09/28/19 08:18 63 09/28/19 08:00 97.0 63 18 117/69 (85) 98 09/28/19 04:00 97.0 65 18 100/53 (69) 93 09/28/19 00:00 97.0 63 20 97/53 (68) 95 09/27/19 21:00 75 94/52 09/27/19 21:00 Nasal Cannula 2.0 09/27/19 19:57 98.2 75 18 94/52 (66) 93 09/27/19 16:00 98.8 67 17 109/63 (78) 95 09/27/19 12:00 98.1 68 17 108/53 (71) 95 09/27/19 09:39 61 102/59 09/27/19 09:39 61 09/27/19 09:00 Nasal Cannula 2.0 09/27/19 08:00 97.5 61 18 102/59 (73) 98 Intake and Output 09/28/19 09/29/19 19:00 07:00 Intake Total 400 ml Balance 400 ml Intake Oral 400 ml # Voids 4 3 # Bowel Movements 1 Labs Test 09/26/19 06:59 09/27/19 06:20 09/28/19 05:35 09/28/19 10:15 White Blood Count 3.9 K/UL (4.8-10.8) 3.6 K/UL (4.8-10.8) 4.0 K/UL (4.8-10.8) Red Blood Count 2.92 M/UL (4.20-5.40) 2.84 M/UL (4.20-5.40) 2.89 M/UL (4.20-5.40) Hemoglobin 8.4 G/DL (12.0-16.0) 8.1 G/DL (12.0-16.0) 8.2 G/DL (12.0-16.0) Hematocrit 26.1 % (37.0-47.0) 25.5 % (37.0-47.0) 26.2 % (37.0-47.0) Mean Corpuscular Volume 89 FL (80-99) 90 FL (80-99) 91 FL (80-99) Mean Corpuscular Hemoglobin 28.6 PG (27.0-31.0) 28.7 PG (27.0-31.0) 28.5 PG (27.0-31.0) Mean Corpuscular Hemoglobin Concent 32.1 G/DL (32.0-36.0) 31.9 G/DL (32.0-36.0) 31.4 G/DL (32.0-36.0) Red Cell Distribution Width 19.1 % (11.6-14.8) 19.2 % (11.6-14.8) 20.3 % (11.6-14.8) Platelet Count 144 K/UL (150-450) 143 K/UL (150-450) 168 K/UL (150-450) Mean Platelet Volume 10.6 FL (6.5-10.1) 10.2 FL (6.5-10.1) 12.0 FL (6.5-10.1) Neutrophils (%) (Auto) 66.6 % (45.0-75.0) 65.4 % (45.0-75.0) 65.8 % (45.0-75.0) Lymphocytes (%) (Auto) 24.5 % (20.0-45.0) 24.3 % (20.0-45.0) 25.2 % (20.0-45.0) Monocytes (%) (Auto) 3.3 % (1.0-10.0) 4.1 % (1.0-10.0) 3.9 % (1.0-10.0) Eosinophils (%) (Auto) 0.9 % (0.0-3.0) 1.5 % (0.0-3.0) 1.1 % (0.0-3.0) Basophils (%) (Auto) 4.7 % (0.0-2.0) 4.7 % (0.0-2.0) 4.0 % (0.0-2.0) Sodium Level 139 MMOL/L (136-145) 141 MMOL/L (136-145) 142 MMOL/L (136-145) Potassium Level 4.1 MMOL/L (3.5-5.1) 4.2 MMOL/L (3.5-5.1) 4.0 MMOL/L (3.5-5.1) Chloride Level 106 MMOL/L (98-107) 106 MMOL/L (98-107) 107 MMOL/L (98-107) Carbon Dioxide Level 27 MMOL/L (21-32) 29 MMOL/L (21-32) 28 MMOL/L (21-32) Anion Gap 6 mmol/L (5-15) 6 mmol/L (5-15) 7 mmol/L (5-15) Blood Urea Nitrogen 17 mg/dL (7-18) 21 mg/dL (7-18) 20 mg/dL (7-18) Creatinine 0.9 MG/DL (0.55-1.30) 0.7 MG/DL (0.55-1.30) 0.7 MG/DL (0.55-1.30) Estimat Glomerular Filtration Rate > 60 mL/min (>60) > 60 mL/min (>60) > 60 mL/min (>60) Glucose Level 86 MG/DL (74-106) 86 MG/DL (74-106) 83 MG/DL (74-106) Calcium Level 8.5 MG/DL (8.5-10.1) 8.5 MG/DL (8.5-10.1) 8.1 MG/DL (8.5-10.1) HIV (1&2) Antibody Rapid Negative (NEGATIVE) Height (Feet): 5 Height (Inches): 1.00 Weight (Pounds): 118 Objective Physical Exam: GENERAL: Awake_alert_ nontoxic, no acute distress EYES: Extraocular muscles are intact. Conjunctivae clear ENT: External nose and ear normal_in_appearance. NECK: No JVD. No meningismus. No thyromegaly. RESP: Normal respiratory effort. Symmetric rise. CARDIAC: Regular rate and regular rhythm on_auscultation ABDOMEN: Soft. Nondistended. Nontender MSK: Normal muscle tone, without rigidity. SKIN: Warm and dry. No visible cyanosis NEUROLOGIC: Alert, oriented x3. Psych: Normal mood and affect Best Kaplan MD Sep 29, 2019 06:53
--- NOTE | 2019-09-29 07:36 | NUR ---
HAND-OFF: Report given to IRA Sheppard. Endorsed discharge plan.
[2019-09-29 08:00] VITALS: BP 103/62
--- NOTE | 2019-09-29 08:00 | NUR ---
NURSE NOTES: Received patient in bed,awake, not in acute respiratory/cardiac distress. No s/s of pain or discomfort @ this time. Patient is for discharge today. RN spoke to son Kishan Moreno who is picking patient up @ 10:00 and RN also spoke to daughter in law Eden and discharge education done about home health, digoxin and educated to check AP and hold medication if AP if less than 60 and to follow up with Dr. Kaplan. Call light within reach,bed is in lowest position and locked. Will continue plan of care.
[2019-09-29] MEDS: Metoprolol Tartrate 50mg tab ORAL SCH ×2 (08:19→20:40)
[2019-09-29] MEDS: Digoxin 0.125mg tab ORAL SCH (09:00)
[2019-09-29] MEDS: Amiodarone 200mg tab ORAL SCH (09:00)
[2019-09-29 09:09] LABS: HEMATOCRIT 24.1 % (37.0-47.0); HEMOGLOBIN 7.8 G/DL (12.0-16.0); MEAN CORPUSCULAR VOLUME 90 FL (80-99); PLATELET COUNT 171 K/UL (150-450); RED BLOOD COUNT 2.67 M/UL (4.20-5.40); RED CELL DISTRIBUTION WIDTH 19.9 % (11.6-14.8); WHITE BLOOD COUNT 4.4 K/UL (4.8-10.8)
--- NOTE | 2019-09-29 09:34 | NUR ---
*-*DISCHARGE PLANNING*-* S/W LIZABETH AT [facility]. THEY HAVE ACCEPTED THE PATIENT AND WILL PROVIDE SERVICE. DR MEYER INFORMED. AWAITING RESPONSE FOR DC ORDER.
--- NOTE | 2019-09-29 09:36 | General Progress Note ---
Assessment/Plan Assessment/Plan: 1. History of chronic anemia. 2. Polycythemia rubra vera. 3. Atrial fibrillation. 4. Hypertension. 5. Obstructive sleep apnea. 6. Coronary artery disease. 7. History of [place] in the past. 8. Hypercholesteremia. 9. CHF. 10. UTI/pyelonephritis. 11. gallstones 12. hepatomegaly 13. splenomegaly 14. right pleural effusion patient refused colonoscopy fu stool ob>>>neg fu H&H>>> stable abd us and CT>>> reviewed will fu Subjective ROS Limited/Unobtainable: Yes Allergies: Coded Allergies: No Known Allergies (Unverified , 04/24/18) Objective Last 24 Hour Vital Signs Date Time Temp Pulse Resp B/P (MAP) Pulse Ox O2 Delivery O2 Flow Rate FiO2 09/29/19 09:00 65 09/29/19 08:19 65 103/62 09/29/19 08:00 97.0 65 18 103/62 (76) 92 09/29/19 04:00 97.9 60 18 99/54 (69) 95 09/29/19 00:00 99.9 61 18 102/52 (69) 95 09/28/19 21:40 Nasal Cannula 2.0 09/28/19 20:45 60 99/54 09/28/19 20:00 99.5 61 18 108/30 (56) 95 09/28/19 19:57 96 Nasal Cannula 2.0 28 09/28/19 16:06 99.0 60 18 99/54 (69) 96 09/28/19 12:00 98.1 62 16 96/55 (69) 95 Intake and Output 09/28/19 09/29/19 19:00 07:00 Intake Total 400 ml Balance 400 ml Intake Oral 400 ml # Voids 4 3 # Bowel Movements 1 Laboratory Tests 09/28/19 10:15: Stool Occult Blood [Pending] 09/29/19 08:25: White Blood Count 4.4L, Red Blood Count 2.67L, Hemoglobin 7.8L, Hematocrit 24.1L , Mean Corpuscular Volume 90, Mean Corpuscular Hemoglobin 29.1, Mean Corpuscular Hemoglobin Concent 32.2, Red Cell Distribution Width 19.9H, Platelet Count 171, Mean Platelet Volume 10.6H, Neutrophils (%) (Auto) , Lymphocytes (%) (Auto) , Monocytes (%) (Auto) , Eosinophils (%) (Auto) , Basophils (%) (Auto) , Neutrophils % (Manual) [Pending], Lymphocytes % (Manual) [Pending], Platelet Estimate [Pending], Platelet Morphology [Pending], Sodium Level [Pending], Potassium Level [Pending], Chloride Level [Pending], Carbon Dioxide Level [Pending], Blood Urea Nitrogen [Pending], Creatinine [Pending], Estimat Glomerular Filtration Rate [Pending], Glucose Level [Pending], Calcium Level [Pending], Digoxin Level 0.8L Height (Feet): 5 Height (Inches): 1.00 Weight (Pounds): 118 General Appearance: alert EENT: normal ENT inspection Neck: supple Cardiovascular: normal rate Respiratory/Chest: decreased breath sounds Abdomen: normal bowel sounds, non tender, soft Extremities: non-tender Blair Kaiser MD Sep 29, 2019 09:36
[2019-09-29 09:47] LABS: ANION GAP 4 mmol/L (5-15); BLOOD UREA NITROGEN 24 mg/dL (7-18); CALCIUM 8.4 MG/DL (8.5-10.1); CARBON DIOXIDE 30 MMOL/L (21-32); CHLORIDE 109 MMOL/L (98-107); CREATININE 0.9 MG/DL (0.55-1.30); POTASSIUM 4.1 MMOL/L (3.5-5.1); SODIUM 143 MMOL/L (136-145)
--- NOTE | 2019-09-29 09:52 | NUR ---
NURSE NOTES: RN left messages to Dr. Rowland to relay hemoglobin level of 7.8. Awaiting for return call.
--- NOTE | 2019-09-29 10:22 | NUR ---
NURSE NOTES: RN spoke to Dr. Kaplan and received new order to give 2 units of PRBC and RN also spoke to Dr. Edwards and relayed low hemoglobin and Dr. Edwards wants to hold discharge and CBC @17:00 after blood transfusion.
--- NOTE | 2019-09-29 10:25 | NUR ---
NURSE NOTES: RN spoke to Kishan Moreno son and informed plan of care and canceled discharge.
[2019-09-29 12:00] VITALS: BP 99/55
--- NOTE | 2019-09-29 12:11 | NUR ---
RD ASSESSMENT & RECOMMENDATIONS SEE CARE ACTIVITY FOR COMPLETE ASSESSMENT DAILY ESTIMATED NEEDS: Needs based on Cardiac/ 61kg 25-30 kcals/kg 3819-7567 total kcals 1-1.3 g protein/kg 61-79 g total protein 25-30 mL/kg 1282-1610 total fluid mLs NUTRITION DIAGNOSIS: Decreased sodium needs r/t cardiac history as evidenced by dx of afib, HTN, on hypotensive med, pt w/ elev BNP (5109), CURRENT DIET:REGULAR, soft easy chew PO DIET RECOMMENDATIONS: LOW NA/ texture as tolerated ADDITIONAL RECOMMENDATIONS: 1) Standing wt or calibrated bedscale wt for accurate CBW 2) Monitor for continued good PO intake 3) MVI x 1 4) Monitor lytes, replete as needed . . .
--- NOTE | 2019-09-29 13:18 | Pulmonology Progress Note ---
Subjective ROS Limited/Unobtainable: Yes Constitutional: Reports: no symptoms HEENT: Repors: no symptoms Respiratory: Reports: no symptoms Allergies: Coded Allergies: No Known Allergies (Unverified , 04/24/18) Objective Last 24 Hour Vital Signs Date Time Temp Pulse Resp B/P (MAP) Pulse Ox O2 Delivery O2 Flow Rate FiO2 09/29/19 12:00 98.1 60 18 99/55 (70) 92 09/29/19 09:00 65 09/29/19 09:00 Nasal Cannula 2.0 09/29/19 08:19 65 103/62 09/29/19 08:00 97.0 65 18 103/62 (76) 92 09/29/19 04:00 97.9 60 18 99/54 (69) 95 09/29/19 00:00 99.9 61 18 102/52 (69) 95 09/28/19 21:40 Nasal Cannula 2.0 09/28/19 20:45 60 99/54 09/28/19 20:00 99.5 61 18 108/30 (56) 95 09/28/19 19:57 96 Nasal Cannula 2.0 28 09/28/19 16:06 99.0 60 18 99/54 (69) 96 Intake and Output 09/28/19 09/29/19 19:00 07:00 Intake Total 400 ml Balance 400 ml Intake Oral 400 ml # Voids 4 3 # Bowel Movements 1 General Appearance: no acute distress, cachetic - Romansh speaking female HEENT: normocephalic, atraumatic Respiratory: chest wall non-tender, lungs clear, no respiratory distress, no accessory muscle use Cardiovascular: normal peripheral pulses, normal rate Abdomen: normal bowel sounds, soft, non tender Skin: no rash, other - posterior and lateral right chest healed scar Neurologic: home care 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 therapist II-XII grossly normal, alert, responsive Lymphatic: no neck adenopathy Musculoskeletal: atrophy - BLE Laboratory Tests 09/29/19 08:25: White Blood Count 4.4L, Red Blood Count 2.67L, Hemoglobin 7.8L, Hematocrit 24.1L , Mean Corpuscular Volume 90, Mean Corpuscular Hemoglobin 29.1, Mean Corpuscular Hemoglobin Concent 32.2, Red Cell Distribution Width 19.9H, Platelet Count 171, Mean Platelet Volume 10.6H, Neutrophils (%) (Auto) , Lymphocytes (%) (Auto) , Monocytes (%) (Auto) , Eosinophils (%) (Auto) , Basophils (%) (Auto) , Neutrophils % (Manual) [Pending], Lymphocytes % (Manual) [Pending], Platelet Estimate [Pending], Platelet Morphology [Pending], Sodium Level 143, Potassium Level 4.1, Chloride Level 109H, Carbon Dioxide Level 30, Anion Gap 4L, Blood Urea Nitrogen 24H, Creatinine 0.9, Estimat Glomerular Filtration Rate > 60, Glucose Level 108H, Calcium Level 8.4L, Digoxin Level 0.8L Current Medications Medications (Trade) Dose Ordered Sig/Escobar Route PRN Reason Start Time Stop Time Status Last Admin Dose Admin Acetaminophen (Tylenol) 650 mg Q4H PRN ORAL T>100.5 09/24/19 01:03 10/21/19 01:02 Amiodarone HCl (Cordarone) 200 mg DAILY ORAL 09/24/19 09:00 12/21/19 08:59 09/29/19 09:00 Digoxin (Lanoxin) 0.125 mg DAILY ORAL 09/24/19 09:00 12/22/19 08:59 09/29/19 09:00 Folic Acid (Folate) 1 mg DAILY ORAL 09/24/19 09:00 10/24/19 08:59 09/29/19 09:00 Gabapentin (Neurontin) 300 mg THREE TIMES A DAY ORAL 09/24/19 09:00 10/22/19 08:59 09/29/19 09:00 Metoprolol Tartrate (Lopressor) 50 mg EVERY 12 HOURS ORAL 09/24/19 21:00 12/20/19 20:59 09/28/19 08:18 Ondansetron HCl (Zofran) 4 mg Q6H PRN IVP Nausea & Vomiting 09/24/19 01:15 10/21/19 19:14 Assessment/Plan Problems: (1) Anemia (2) Myelofibrosis (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 f/u GI recommendations symptomatic treatment Kelly Mejia MD Sep 29, 2019 13:18
--- NOTE | 2019-09-29 14:00 | NUR ---
NURSE NOTES: Patient's IV is leaking. Will obtain new IV.
--- NOTE | 2019-09-29 14:01 | CDS Physician Query ---
Clarification is required for compliance, coding accuracy, and to reflect severity of illness for this patient Dear Dr. Roshan Edwards Date: 09/29/2019 Anthropologist Physical/CDS Name: Yas Khan Clinical Documentation states: HNP: 79-year-old female who presents with a chief complaint of generalized weakness...Polycythemia vera Hem-onc note: 09/28 remais confused, labs noted, wbc 4, hgb 8.2 Surgery note 09/27: Acute encephalopathy....severe anemia Please indicate the nature and chronicity of the condition below: [X] Metabolic Encephalopathy [] Toxic Encephalopathy [] Toxic - Metabolic Encephalopathy [] Encephalopathy, Other [] Dementia with Delirium [] Hypoxic encephalopathy [] Posterior reversible encephalopathy syndrome [] Other: [] Not Applicable Present on Admission: [X] Yes [] No [] Clinically Undetermined Physician signature Date Please also document in your Progress Notes and/or Discharge Summary and indicate if the condition was present on admission. MTDD
--- NOTE | 2019-09-29 14:06 | CDS Physician Query ---
Clarification is required for compliance, coding accuracy, and to reflect severity of illness for this patient. Dear Dr. Roshan Edwards Date: 09/29/2019 CDS name: Yas Khan Clinical Documentation states: 09/27 progress note: 79-year-old female...Protein calorie malnutrition...Generalized weakness. This is probably secondary to severe anemia RD note: NUTRITION DIAGNOSIS: Decreased sodium needs r/t cardiac history as evidenced by dx of afib, HTN, on hypotensive med, pt w/ elev BNP (5109), BMI 20.9, Albumin 2.6 In order to accurately code this and to reflect the appropriate severity of ilness, please clarify diagnosis. [] Mild Malnutrition [X] Moderate Malnutrition [] Severe Malnutrition [] Unknown degree [] Other: [] Clinically Undetermined Present on Admission: [X] Yes [] No [] Clinically Undetermined Physician signature Date Please also document in your Progress Notes and/or Discharge Summary and indicate if the condition was present on admission. NICOLÁSD
--- NOTE | 2019-09-29 14:55 | Surgery Progress Note ---
Surgery Progress Note Subjective Symptoms: improved, tolerating diet, voiding well, passing flatus, BM, pain decreased Objective Last 24 Hour Vital Signs Date Time Temp Pulse Resp B/P (MAP) Pulse Ox O2 Delivery O2 Flow Rate FiO2 09/29/19 12:00 98.1 60 18 99/55 (70) 92 09/29/19 09:00 65 09/29/19 09:00 Nasal Cannula 2.0 09/29/19 08:19 65 103/62 09/29/19 08:00 97.0 65 18 103/62 (76) 92 09/29/19 04:00 97.9 60 18 99/54 (69) 95 09/29/19 00:00 99.9 61 18 102/52 (69) 95 09/28/19 21:40 Nasal Cannula 2.0 09/28/19 20:45 60 99/54 09/28/19 20:00 99.5 61 18 108/30 (56) 95 09/28/19 19:57 96 Nasal Cannula 2.0 28 09/28/19 16:06 99.0 60 18 99/54 (69) 96 I&O Intake and Output 09/28/19 09/29/19 19:00 07:00 Intake Total 400 ml Balance 400 ml Intake Oral 400 ml # Voids 4 3 # Bowel Movements 1 Dressing: dry Wound: clean Cardiovascular: RSR Respiratory: clear, decreased breath sounds Abdomen: soft, non-tender, present bowel sounds Extremities: no edema, no tenderness, no cyanosis Laboratory Tests Test 09/29/19 08:25 White Blood Count 4.4 K/UL (4.8-10.8) L Red Blood Count 2.67 M/UL (4.20-5.40) L Hemoglobin 7.8 G/DL (12.0-16.0) L Hematocrit 24.1 % (37.0-47.0) L Mean Corpuscular Volume 90 FL (80-99) Mean Corpuscular Hemoglobin 29.1 PG (27.0-31.0) Mean Corpuscular Hemoglobin Concent 32.2 G/DL (32.0-36.0) Red Cell Distribution Width 19.9 % (11.6-14.8) H Platelet Count 171 K/UL (150-450) Mean Platelet Volume 10.6 FL (6.5-10.1) H Neutrophils (%) (Auto) % (45.0-75.0) Lymphocytes (%) (Auto) % (20.0-45.0) Monocytes (%) (Auto) % (1.0-10.0) Eosinophils (%) (Auto) % (0.0-3.0) Basophils (%) (Auto) % (0.0-2.0) Differential Total Cells Counted 100 Neutrophils % (Manual) 76 % (45-75) H Lymphocytes % (Manual) 20 % (20-45) Monocytes % (Manual) 4 % (1-10) Eosinophils % (Manual) 0 % (0-3) Basophils % (Manual) 0 % (0-2) Band Neutrophils 0 % (0-8) Platelet Estimate Adequate Platelet Morphology Giant Platelets Occasional Hypochromasia 1+ Anisocytosis 1+ Sodium Level 143 MMOL/L (136-145) Potassium Level 4.1 MMOL/L (3.5-5.1) Chloride Level 109 MMOL/L (98-107) H Carbon Dioxide Level 30 MMOL/L (21-32) Anion Gap 4 mmol/L (5-15) L Blood Urea Nitrogen 24 mg/dL (7-18) H Creatinine 0.9 MG/DL (0.55-1.30) Estimat Glomerular Filtration Rate > 60 mL/min (>60) Glucose Level 108 MG/DL (74-106) H Calcium Level 8.4 MG/DL (8.5-10.1) L Digoxin Level 0.8 NG/ML (0.9-2.0) L Plan Problems: (1) ACS (acute coronary syndrome) (2) Pyelonephritis (3) CAD (coronary artery disease) (4) COPD (chronic obstructive pulmonary disease) (5) positional vertigo (6) KELVIN (obstructive sleep apnea) (7) Peripheral neuropathy (8) Myelofibrosis (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 hx of bleeding held anticoagulation since prior right hemothorax s/p evacuation and vats transfusing prbc coags noted may need ffp ddx includes possible GI hemorrhage. protonix ordered pending GI eval consider scope CT once stable US abd ordered thank you will follow with recs trend h/h transfuse prn Gallbladder demonstrates a gallstone. This also reported on same day CT. Sonographic Camacho's sign is negative. Common bile duct measures 5 mm in diameter. No intrahepatic biliary ductal dilatation. Liver demonstrates normal echogenicity, no focal abnormality. Portal vein and hepatic veins are patent. Pancreas is unremarkable. The spleen demonstrates a complex upper pole cyst that measures 2.7 cm in diameter. The spleen is borderline enlarged. There are bilateral pleural effusions Left kidney measures 10.2 cm in length. Right kidney measures 9.2 cm length. Both kidneys demonstrate normal echogenicity. There is no hydronephrosis. No focal abnormality . Non-aneurysmal abdominal aorta . Impression: Cholelithiasis. Negative for dilated bile ducts 2.7 cm complex upper pole splenic cyst, also reported on prior imaging studies. Bilateral pleural effusions Chest: The lungs demonstrate a mosaic perfusion pattern, which is more striking than that seen previously. Some atelectasis and consolidation is seen involving both lower lobes. This appears similar on the right, slightly more extensive on the left. There is a moderate-sized right pleural effusion which appears similar to the previous study. There is a small left pleural effusion which is new since the previous study. Previous exam demonstrated a 1.5 cm opacity in the inferior right azygoesophageal recess. This is not evident currently although could be obscured by surrounding atelectatic lung. The heart is enlarged. There is a left chest pacemaker again demonstrated. No pericardial effusion. No mediastinal or hilar mass or adenopathy. Right lower pole thyroid calcification is again demonstrated. No axillary or chest wall mass or adenopathy. There are fairly profound degenerative changes of the bilateral shoulders. There is evidence of interim healing of previously demonstrated right rib fractures, nearly but not completely healed as some fracture lines persist. There are degenerative changes of the thoracic spine noted. Abdomen pelvis: What is probably a normal appendix is demonstrated. There is extensive colonic diverticulosis. No evidence of diverticulitis. The rectum is mildly distended, mostly with gas with some stool as well. No small bowel distention or small bowel wall thickening. Numerous surgical clips are seen in the retroperitoneum and left side of the pelvis. The stomach and duodenum are unremarkable. The gallbladder contains a gallstone. No biliary ductal dilatation. The liver is mildly enlarged. The pancreas is unremarkable. The spleen is enlarged, measuring 14 cm long axis dimension. It demonstrates a complex upper pole cyst, also previously demonstrated the adrenals and kidneys are unremarkable. There is a retroaortic left renal vein incidentally noted. The uterus is absent.. The bladder is unremarkable. The bones demonstrate degenerative spondylosis changes. IMPRESSION: Cardiomegaly Unchanged moderate right pleural effusion, since June 2019. New small left pleural effusion Bilateral mosaic perfusion pattern, probably on the basis of pulmonary edema Bilateral basilar compressive atelectasis and possible consolidation Interim healing of previously demonstrated right rib fractures Previously demonstrated right azygoesophageal recess lesion is no longer evident , may have resolved or may be obscured by surrounding lung parenchyma. Cholelithiasis Hepatomegaly Splenomegaly Splenic cystic lesion, unchanged from prior exam Postsurgical changes as described, including pacemaker, evidence of prior hysterectomy, evidence of prior pelvic lymph node dissection, prior hysterectomy Errol Estrada Sep 29, 2019 14:55
--- NOTE | 2019-09-29 15:30 | NUR ---
NURSE NOTES: IV was inserted by tech from radiology on right upper arm.
[2019-09-29 16:00] VITALS: BP 106/59
--- NOTE | 2019-09-29 16:05 | NUR ---
NURSE NOTES: RN started blood transfusion, verified blood with another RN. Assessed blood, no clots, v/S stable. Patient is aware of possible adverse reaction. Will continue to monitor.
--- NOTE | 2019-09-29 16:20 | NUR ---
NURSE NOTES: No adverse reaction from blood transfusion. Will continue to monitor.
--- NOTE | 2019-09-29 17:04 | Internal Med Progress Note ---
Subjective Date of Service: Sep 29, 2019 Physician Name Roshan Edwards Attending Physician Antonio Adrian MD Current Medications Medications (Trade) Dose Ordered Sig/Escobar Route PRN Reason Start Time Stop Time Status Last Admin Dose Admin Acetaminophen (Tylenol) 650 mg Q4H PRN ORAL T>100.5 09/24/19 01:03 10/21/19 01:02 Amiodarone HCl (Cordarone) 200 mg DAILY ORAL 09/24/19 09:00 12/21/19 08:59 09/29/19 09:00 Digoxin (Lanoxin) 0.125 mg DAILY ORAL 09/24/19 09:00 12/22/19 08:59 09/29/19 09:00 Folic Acid (Folate) 1 mg DAILY ORAL 09/24/19 09:00 10/24/19 08:59 09/29/19 09:00 Gabapentin (Neurontin) 300 mg THREE TIMES A DAY ORAL 09/24/19 09:00 10/22/19 08:59 09/29/19 13:46 Metoprolol Tartrate (Lopressor) 50 mg EVERY 12 HOURS ORAL 09/24/19 21:00 12/20/19 20:59 09/28/19 08:18 Ondansetron HCl (Zofran) 4 mg Q6H PRN IVP Nausea & Vomiting 09/24/19 01:15 10/21/19 19:14 Allergies: Coded Allergies: No Known Allergies (Unverified , 04/24/18) ROS Limited/Unobtainable: No Constitutional: Reports: no symptoms HEENT: Reports: no symptoms Cardiovascular: Reports: no symptoms Respiratory: Reports: no symptoms Gastrointestinal/Abdominal: Reports: no symptoms Genitourinary: Reports: no symptoms Neurologic/Psychiatric: Reports: no symptoms Subjective 79 YO F admitted with generalized weakness. Now severe anemia. Cover for Int med-Dr Adrian. Objective Last Vital Signs Date Time Temp Pulse Resp B/P (MAP) Pulse Ox O2 Delivery O2 Flow Rate FiO2 09/29/19 16:00 98.4 64 18 106/59 (75) 92 09/29/19 09:00 Nasal Cannula 2.0 09/28/19 19:57 28 Laboratory Tests Test 09/29/19 08:25 White Blood Count 4.4 K/UL (4.8-10.8) L Red Blood Count 2.67 M/UL (4.20-5.40) L Hemoglobin 7.8 G/DL (12.0-16.0) L Hematocrit 24.1 % (37.0-47.0) L Mean Corpuscular Volume 90 FL (80-99) Mean Corpuscular Hemoglobin 29.1 PG (27.0-31.0) Mean Corpuscular Hemoglobin Concent 32.2 G/DL (32.0-36.0) Red Cell Distribution Width 19.9 % (11.6-14.8) H Platelet Count 171 K/UL (150-450) Mean Platelet Volume 10.6 FL (6.5-10.1) H Neutrophils (%) (Auto) % (45.0-75.0) Lymphocytes (%) (Auto) % (20.0-45.0) Monocytes (%) (Auto) % (1.0-10.0) Eosinophils (%) (Auto) % (0.0-3.0) Basophils (%) (Auto) % (0.0-2.0) Differential Total Cells Counted 100 Neutrophils % (Manual) 76 % (45-75) H Lymphocytes % (Manual) 20 % (20-45) Monocytes % (Manual) 4 % (1-10) Eosinophils % (Manual) 0 % (0-3) Basophils % (Manual) 0 % (0-2) Band Neutrophils 0 % (0-8) Platelet Estimate Adequate Platelet Morphology Giant Platelets Occasional Hypochromasia 1+ Anisocytosis 1+ Sodium Level 143 MMOL/L (136-145) Potassium Level 4.1 MMOL/L (3.5-5.1) Chloride Level 109 MMOL/L (98-107) H Carbon Dioxide Level 30 MMOL/L (21-32) Anion Gap 4 mmol/L (5-15) L Blood Urea Nitrogen 24 mg/dL (7-18) H Creatinine 0.9 MG/DL (0.55-1.30) Estimat Glomerular Filtration Rate > 60 mL/min (>60) Glucose Level 108 MG/DL (74-106) H Calcium Level 8.4 MG/DL (8.5-10.1) L Digoxin Level 0.8 NG/ML (0.9-2.0) L Intake and Output 09/28/19 09/29/19 19:00 07:00 Intake Total 400 ml Balance 400 ml Intake Oral 400 ml # Voids 4 3 # Bowel Movements 1 Objective PHYSICAL EXAMINATION: GENERAL: The patient is a well-developed, well-nourished female, in no apparent distress. HEENT: Eyes, pupils equal and responsive to light and accommodation. Extraocular movements are intact. NECK: Supple without lymphadenopathy. CHEST: Lungs are clear to auscultation bilaterally without wheezes or rales. CARDIOVASCULAR: Regular rate. S1-S2 are normal without murmurs, rubs, or gallops. ABDOMEN: Soft, nontender, nondistended with positive bowel sounds. No evidence of hepatosplenomegaly. Currently no rebound or guarding noted. EXTREMITIES: Negative for clubbing, cyanosis, or edema. RECTAL/GENITAL: Not performed. NEUROLOGICAL: Cranial nerves II through XII are grossly intact without focal deficits. Motor strength is 5/5 bilaterally. Deep tendon reflexes are 2+, plantar. Assessment/Plan Assessment/Plan ASSESSMENT: This is an 79-year-old female. 1. Generalized weakness. 2. Severe anemia. 3. Chronic atrial fibrillation. 4. Polycythemia vera. 5. History of cerebrovascular accident/transient ischemic attack. 6. Obstructive sleep apnea. 7. Coronary artery disease. 8. Hypercholesterolemia. 9. Congestive heart failure. 10. History of sick sinus syndrome. 11. History of right hemothorax. 12. Protein calorie malnutrition TREATMENT: 1. Generalized weakness. This is probably secondary to severe anemia as below. 2. Severe anemia-macrocytic anemia A hematology consultation has been obtained with Dr Kaplan. The patient is S/P transfusion 4 units of packed RBCs; due for transfusion 2 more units PRBC today 09/29/19 S/P IV venofer X 5 days. Hemoglobin stable for 5 days. GI consultation =Dr Kaiser.; Patient refused colonoscopy 3. Polycythemia vera, as above. 4. Chronic atrial fibrillation/coronary artery disease. A cardiology consultation has been obtained with Dr. Freitas. 5. Sick sinus syndrome. The patient is status post pacemaker implantation. Await pacemaker interrogation 6. Hypercholesterolemia. 7. History of congestive heart failure. 8. History of right hemothorax, status post VATS procedure. 9. Await colonoscopy 10. Patient Refused ultrasound 11. Discharge planning=Home with [facility]-hold discharge due to anemia Roshan Edwards MD Sep 29, 2019 17:04
--- NOTE | 2019-09-29 17:50 | Cardiac Electrophysiology PN ---
Assessment/Plan Assessment/Plan 1. Weakness due to profound anemia, hemoglobin of 4.8. S/P four units of blood transfusion. GI workup for last two years had two endoscopies with last one in July 2018, which was negative for obvious GI bleeding. Stool OBs are negative. S/P ABD US, Chests CT. Refused Colonoscopy Getting PRBC again today 2. Status post [employer] PPM in 2010 and gen change by me in 2019 with normal function by interrogation 3. PAF with RVR. In atrially paced rhythm on amiodarone 200 mg daily, metoprolol 50 mg bid and digoxin 0.125 mg daily . Off anticoagulation for severe anemia requiring multiple blood transfusions in the past. 4. Hypertension, on metoprolol. 5. Urinary tract infection. 6. History of polycythemia vera. 7. Severe pulmonary hypertension with PA pressure of 71. 8. Hemothorax status post VATS by Dr. Malik in 07/2019. RILEY RN. Subjective Subjective Alert in NAD, No CP. Getting PRBC today x 2. Lopressor held as BP was in 90s Objective Last 24 Hour Vital Signs Date Time Temp Pulse Resp B/P (MAP) Pulse Ox O2 Delivery O2 Flow Rate FiO2 09/29/19 16:00 98.4 64 18 106/59 (75) 92 09/29/19 12:00 98.1 60 18 99/55 (70) 92 09/29/19 09:00 65 09/29/19 09:00 Nasal Cannula 2.0 09/29/19 08:19 65 103/62 09/29/19 08:00 97.0 65 18 103/62 (76) 92 09/29/19 04:00 97.9 60 18 99/54 (69) 95 09/29/19 00:00 99.9 61 18 102/52 (69) 95 09/28/19 21:40 Nasal Cannula 2.0 09/28/19 20:45 60 99/54 09/28/19 20:00 99.5 61 18 108/30 (56) 95 09/28/19 19:57 96 Nasal Cannula 2.0 28 Intake and Output 09/28/19 09/29/19 19:00 07:00 Intake Total 400 ml Balance 400 ml Intake Oral 400 ml # Voids 4 3 # Bowel Movements 1 Laboratory Tests Test 09/29/19 08:25 White Blood Count 4.4 K/UL (4.8-10.8) L Red Blood Count 2.67 M/UL (4.20-5.40) L Hemoglobin 7.8 G/DL (12.0-16.0) L Hematocrit 24.1 % (37.0-47.0) L Mean Corpuscular Volume 90 FL (80-99) Mean Corpuscular Hemoglobin 29.1 PG (27.0-31.0) Mean Corpuscular Hemoglobin Concent 32.2 G/DL (32.0-36.0) Red Cell Distribution Width 19.9 % (11.6-14.8) H Platelet Count 171 K/UL (150-450) Mean Platelet Volume 10.6 FL (6.5-10.1) H Neutrophils (%) (Auto) % (45.0-75.0) Lymphocytes (%) (Auto) % (20.0-45.0) Monocytes (%) (Auto) % (1.0-10.0) Eosinophils (%) (Auto) % (0.0-3.0) Basophils (%) (Auto) % (0.0-2.0) Differential Total Cells Counted 100 Neutrophils % (Manual) 76 % (45-75) H Lymphocytes % (Manual) 20 % (20-45) Monocytes % (Manual) 4 % (1-10) Eosinophils % (Manual) 0 % (0-3) Basophils % (Manual) 0 % (0-2) Band Neutrophils 0 % (0-8) Platelet Estimate Adequate Platelet Morphology Giant Platelets Occasional Hypochromasia 1+ Anisocytosis 1+ Sodium Level 143 MMOL/L (136-145) Potassium Level 4.1 MMOL/L (3.5-5.1) Chloride Level 109 MMOL/L (98-107) H Carbon Dioxide Level 30 MMOL/L (21-32) Anion Gap 4 mmol/L (5-15) L Blood Urea Nitrogen 24 mg/dL (7-18) H Creatinine 0.9 MG/DL (0.55-1.30) Estimat Glomerular Filtration Rate > 60 mL/min (>60) Glucose Level 108 MG/DL (74-106) H Calcium Level 8.4 MG/DL (8.5-10.1) L Digoxin Level 0.8 NG/ML (0.9-2.0) L Objective HEAD AND NECK: No JVD or carotid bruits. Sclerae are very pale. LUNGS: Clear. CARDIOVASCULAR: Shows regular S1 and S2 with no gallop. Pacemaker in the left subclavian, healed. ABDOMEN: Soft. EXTREMITIES: No pitting edema. River Freitas MD Sep 29, 2019 17:50
--- NOTE | 2019-09-29 18:25 | NUR ---
NURSE NOTES: late entry from 09/29/19, RN started 2nd bag of PRBC verified with another RN, patient's V/S stable. Patient denies any adverse reaction. Will continue to monitor.
--- NOTE | 2019-09-29 18:58 | NUR ---
NURSE HAND-OFF: Important Events on Shift: blood transfusion, canceled discharge Patient Status: stable Diet: regular soft easy chew Pending Orders: Pending Results/Labs:CBC after blood transfusion Pending MD notification:n/a Latest Vital Signs: Temperature 98.4 , Pulse 64 , B/P 106 /59 , Respiratory Rate 18 , O2 SAT 92 , Nasal Cannula, O2 Flow Rate 2.0 . Vital Sign Comment: Latest Yepez Fall Score: 60 Fall Risk: High Risk Safety Measures: Call light Within Reach, Bed Alarm Zone 1, Side Rails Side Rails x2, Bed position Low and Locked. Fall Precautions: Yellow Socks Yellow Gown Door Sign Patient Fall Education Report given to Chuck and endorsed plan of care RN endorsed to monitor blood transfusion.
--- NOTE | 2019-09-29 19:26 | NUR ---
NURSE NOTES: Received patient awake in bed, blood transfusion in progress, VSS, no s/s of acute distress. Helped patient to bedside commode with [employer], patient voided clear yellow urine. Patient assisted back to bed, 2 side rails up, wheels locked.
[2019-09-29 20:00] VITALS: BP 119/54
[2019-09-29 23:48] LABS: BASOPHILS % (AUTO) 5.2 % (0.0-2.0); EOSINOPHILS % (AUTO) 0.5 % (0.0-3.0); HEMATOCRIT 31.5 % (37.0-47.0); HEMOGLOBIN 10.5 G/DL (12.0-16.0); LYMPHOCYTES % (AUTO) 29.1 % (20.0-45.0); MEAN CORPUSCULAR VOLUME 90 FL (80-99); MONOCYTES % (AUTO) 5.1 % (1.0-10.0); NEUTROPHILS % (AUTO) 60.1 % (45.0-75.0); PLATELET COUNT 172 K/UL (150-450); RED BLOOD COUNT 3.51 M/UL (4.20-5.40); RED CELL DISTRIBUTION WIDTH 16.7 % (11.6-14.8); WHITE BLOOD COUNT 4.5 K/UL (4.8-10.8)
[2019-09-30] VITALS: BP 123/55
[2019-09-30 04:00] VITALS: BP 126/57
--- NOTE | 2019-09-30 06:57 | NUR ---
HAND-OFF: Report given to IRA Sheppard.
--- NOTE | 2019-09-30 07:00 | NUR ---
NURSE NOTES: Received patient in bed,awake,not in respiratory/cardiac distress. Lung sound is clear. Patient denies pain or discomfort. Bed is in lowest position and locked. Bed alarm is on . IV is intact, no s/s of infiltration. No adverse reaction from blood transfusion.Will continue to monitor.
--- NOTE | 2019-09-30 07:16 | Hematology/Onc Progress Note ---
Assessment/Plan Assessment/Plan ASSESSMENT AND RECOMMENDATIONS # Polycythemia vera, JAK2+++. In prior was on hydroxyurea --> obtain jak2 level--> was detected -> consider outpatient hydrea when h/h better --> imaging abd us ordered - Splenomegaly. 3 cm cyst within the spleen probably complex with at least one or 2 septations. Trace right pleural effusion. Gallbladder sludge versus stones. --> likely will need better titration of hydrea on discharged # Pancytopenia now with initially with anemia of chronic disease due to underlying chronic medical issues, multifactorial, also due to polycythemia vera , hgb 5 on admission --> Anemia workup has been ordered, rule out gi bleed - results noted and cw acd --> No evidence of hemolysis is noted, peripheral smear has been reviewed. --> Hgb goal >7. Transfuse prn --> S/P IV iron x 5 days 08/06/18 --> Medications have been reviewed --> low threshold for gi evaluation in case has occult --> Hgb trend:4.8-->5.1-->9-->8.9-->8.1-->8.2->10.5 --> wbc 3.8-->4 --> plt 143-->168 --> Patient received an EGD by GI at that time that showed gastritis. No varices # Vertigo. --> per neuro as needed # Atrial fibrillation with rapid ventricular rate. --> Serial troponin levels will be performeD prior and neg --> started on amio for rapid ventricular rate. --> per cards # Hypertension. Cont on clonidine # Obstructive sleep apnea. # Coronary artery disease. # Hypercholesteremia. # Congestive heart failure. # Dvt ppx scds The time the the note is entered does not reflect the time the patient was examined. I greatly appreciate the consultation. Subjective Constitutional: Denies: no symptoms, chills, fever, malaise, weakness, other HEENT: Denies: no symptoms, eye pain, blurred vision, tearing, double vision, ear pain, ear discharge, nose pain, nose congestion, throat pain, throat swelling, mouth pain, mouth swelling, other Cardiovascular: Denies: no symptoms, chest pain, edema, irregular heart rate, lightheadedness, palpitations, syncope, other Gastrointestinal/Abdominal: Denies: no symptoms, abdomen distended, abdominal pain, black stools, tarry stools, blood in stool, constipated, diarrhea, difficulty swallowing, nausea, poor appetite, poor fluid intake, rectal bleeding , vomiting, other Genitourinary: Denies: no symptoms, burning, discharge, frequency, flank pain, hematuria, incontinence, pain, urgency, other Neurologic/Psychiatric: Denies: no symptoms, anxiety, depressed, emotional problems, headache, numbness, paresthesia, pre-existing deficit, seizure, tingling, tremors, weakness, other Endocrine: Denies: no symptoms, excessive sweating, flushing, intolerance to cold, intolerance to heat, increased hunger, increased thirst, increased urine, unexplained weight gain, unexplained weight loss, other Hematologic/Lymphatic: Denies: no symptoms, anemia, easy bleeding, easy bruising, adenopathy, other Allergies: Coded Allergies: No Known Allergies (Unverified , 04/24/18) Subjective 09/25 no major events, no bleeding, labs noted, no night sweats, hgb 8.4, wbc 3.9 09/26 asleep, no events, no bleeding, cbc and bmp noted, dw rn 09/27 labs are noted, no bleeding, dw rn, no night sweats, comfortable 09/28 remais confused, labs noted, wbc 4, hgb 8.2, no bleeding, pending dc 09/29 blood transfusion done yesterday, no bleeding, hgb 10.5 Objective Objective Current Medications Medications (Trade) Dose Ordered Sig/Escobar Route PRN Reason Start Time Stop Time Status Last Admin Dose Admin Acetaminophen (Tylenol) 650 mg Q4H PRN ORAL T>100.5 09/24/19 01:03 10/21/19 01:02 Amiodarone HCl (Cordarone) 200 mg DAILY ORAL 09/24/19 09:00 12/21/19 08:59 09/29/19 09:00 Digoxin (Lanoxin) 0.125 mg DAILY ORAL 09/24/19 09:00 12/22/19 08:59 09/29/19 09:00 Folic Acid (Folate) 1 mg DAILY ORAL 09/24/19 09:00 10/24/19 08:59 09/29/19 09:00 Gabapentin (Neurontin) 300 mg THREE TIMES A DAY ORAL 09/24/19 09:00 10/22/19 08:59 09/29/19 18:11 Metoprolol Tartrate (Lopressor) 50 mg EVERY 12 HOURS ORAL 09/24/19 21:00 12/20/19 20:59 09/29/19 20:40 Ondansetron HCl (Zofran) 4 mg Q6H PRN IVP Nausea & Vomiting 09/24/19 01:15 10/21/19 19:14 Last 24 Hour Vital Signs Date Time Temp Pulse Resp B/P (MAP) Pulse Ox O2 Delivery O2 Flow Rate FiO2 09/30/19 04:00 98.6 65 17 126/57 (80) 92 09/30/19 00:00 98.4 69 17 123/55 (77) 92 09/29/19 21:16 Nasal Cannula 2.0 09/29/19 20:52 97 Nasal Cannula 2.0 28 09/29/19 20:40 64 106/59 09/29/19 20:00 98.5 63 18 119/54 (75) 92 09/29/19 16:00 98.4 64 18 106/59 (75) 92 09/29/19 12:00 98.1 60 18 99/55 (70) 92 09/29/19 09:00 65 09/29/19 09:00 Nasal Cannula 2.0 09/29/19 08:19 65 103/62 09/29/19 08:00 97.0 65 18 103/62 (76) 92 09/29/19 04:00 97.9 60 18 99/54 (69) 95 09/29/19 00:00 99.9 61 18 102/52 (69) 95 09/28/19 21:40 Nasal Cannula 2.0 09/28/19 20:45 60 99/54 09/28/19 20:00 99.5 61 18 108/30 (56) 95 09/28/19 19:57 96 Nasal Cannula 2.0 28 09/28/19 16:06 99.0 60 18 99/54 (69) 96 09/28/19 12:00 98.1 62 16 96/55 (69) 95 09/28/19 09:00 Nasal Cannula 2.0 09/28/19 08:18 63 117/69 09/28/19 08:18 63 8/17/20 08:00 97.0 63 18 117/69 (85) 98 Intake and Output 09/29/19 09/30/19 19:00 07:00 Intake Total 790 ml Balance 790 ml Intake Oral 540 ml Blood Product 250 ml # Voids 6 5 Labs Test 09/28/19 05:35 09/28/19 10:15 09/29/19 08:25 09/29/19 23:20 White Blood Count 4.0 K/UL (4.8-10.8) 4.4 K/UL (4.8-10.8) 4.5 K/UL (4.8-10.8) Red Blood Count 2.89 M/UL (4.20-5.40) 2.67 M/UL (4.20-5.40) 3.51 M/UL (4.20-5.40) Hemoglobin 8.2 G/DL (12.0-16.0) 7.8 G/DL (12.0-16.0) 10.5 G/DL (12.0-16.0) Hematocrit 26.2 % (37.0-47.0) 24.1 % (37.0-47.0) 31.5 % (37.0-47.0) Mean Corpuscular Volume 91 FL (80-99) 90 FL (80-99) 90 FL (80-99) Mean Corpuscular Hemoglobin 28.5 PG (27.0-31.0) 29.1 PG (27.0-31.0) 29.8 PG (27.0-31.0) Mean Corpuscular Hemoglobin Concent 31.4 G/DL (32.0-36.0) 32.2 G/DL (32.0-36.0) 33.3 G/DL (32.0-36.0) Red Cell Distribution Width 20.3 % (11.6-14.8) 19.9 % (11.6-14.8) 16.7 % (11.6-14.8) Platelet Count 168 K/UL (150-450) 171 K/UL (150-450) 172 K/UL (150-450) Mean Platelet Volume 12.0 FL (6.5-10.1) 10.6 FL (6.5-10.1) 11.4 FL (6.5-10.1) Neutrophils (%) (Auto) 65.8 % (45.0-75.0) % (45.0-75.0) 60.1 % (45.0-75.0) Lymphocytes (%) (Auto) 25.2 % (20.0-45.0) % (20.0-45.0) 29.1 % (20.0-45.0) Monocytes (%) (Auto) 3.9 % (1.0-10.0) % (1.0-10.0) 5.1 % (1.0-10.0) Eosinophils (%) (Auto) 1.1 % (0.0-3.0) % (0.0-3.0) 0.5 % (0.0-3.0) Basophils (%) (Auto) 4.0 % (0.0-2.0) % (0.0-2.0) 5.2 % (0.0-2.0) Sodium Level 142 MMOL/L (136-145) 143 MMOL/L (136-145) Potassium Level 4.0 MMOL/L (3.5-5.1) 4.1 MMOL/L (3.5-5.1) Chloride Level 107 MMOL/L (98-107) 109 MMOL/L (98-107) Carbon Dioxide Level 28 MMOL/L (21-32) 30 MMOL/L (21-32) Anion Gap 7 mmol/L (5-15) 4 mmol/L (5-15) Blood Urea Nitrogen 20 mg/dL (7-18) 24 mg/dL (7-18) Creatinine 0.7 MG/DL (0.55-1.30) 0.9 MG/DL (0.55-1.30) Estimat Glomerular Filtration Rate > 60 mL/min (>60) > 60 mL/min (>60) Glucose Level 83 MG/DL (74-106) 108 MG/DL (74-106) Calcium Level 8.1 MG/DL (8.5-10.1) 8.4 MG/DL (8.5-10.1) Stool Occult Blood Negative (NEGATIVE) Differential Total Cells Counted 100 Neutrophils % (Manual) 76 % (45-75) Lymphocytes % (Manual) 20 % (20-45) Monocytes % (Manual) 4 % (1-10) Eosinophils % (Manual) 0 % (0-3) Basophils % (Manual) 0 % (0-2) Band Neutrophils 0 % (0-8) Platelet Estimate Adequate Platelet Morphology Giant Platelets Occasional Hypochromasia 1+ Anisocytosis 1+ Digoxin Level 0.8 NG/ML (0.9-2.0) Test 09/30/19 06:19 Height (Feet): 5 Height (Inches): 1.00 Weight (Pounds): 121 Objective Physical Exam: GENERAL: Awake_alert_ nontoxic, no acute distress EYES: Extraocular muscles are intact. Conjunctivae clear ENT: External nose and ear normal_in_appearance. NECK: No JVD. No meningismus. No thyromegaly. RESP: Normal respiratory effort. Symmetric rise. CARDIAC: Regular rate and regular rhythm on_auscultation ABDOMEN: Soft. Nondistended. Nontender MSK: Normal muscle tone, without rigidity. SKIN: Warm and dry. No visible cyanosis NEUROLOGIC: Alert, oriented x3. Psych: Normal mood and affect Best Kaplan MD Sep 30, 2019 07:16
[2019-09-30 07:19] LABS: BASOPHILS % (AUTO) 3.9 % (0.0-2.0); EOSINOPHILS % (AUTO) 0.7 % (0.0-3.0); HEMATOCRIT 32.2 % (37.0-47.0); HEMOGLOBIN 10.7 G/DL (12.0-16.0); MEAN CORPUSCULAR VOLUME 90 FL (80-99); MONOCYTES % (AUTO) 4.4 % (1.0-10.0); NEUTROPHILS % (AUTO) 63.9 % (45.0-75.0); PLATELET COUNT 170 K/UL (150-450); RED BLOOD COUNT 3.59 M/UL (4.20-5.40); RED CELL DISTRIBUTION WIDTH 16.9 % (11.6-14.8); WHITE BLOOD COUNT 3.9 K/UL (4.8-10.8)
[2019-09-30 07:27] LABS: ANION GAP 4 mmol/L (5-15); BLOOD UREA NITROGEN 22 mg/dL (7-18); CALCIUM 8.5 MG/DL (8.5-10.1); CARBON DIOXIDE 29 MMOL/L (21-32); CHLORIDE 107 MMOL/L (98-107); CREATININE 0.9 MG/DL (0.55-1.30); POTASSIUM 4.1 MMOL/L (3.5-5.1); SODIUM 140 MMOL/L (136-145)
[2019-09-30 08:00] VITALS: BP 131/75
[2019-09-30] MEDS: Digoxin 0.125mg tab ORAL SCH (08:38)
[2019-09-30] MEDS: Metoprolol Tartrate 50mg tab ORAL SCH (08:38)
[2019-09-30] MEDS: Amiodarone 200mg tab ORAL SCH (08:38)
--- NOTE | 2019-09-30 10:00 | General Progress Note ---
Assessment/Plan Assessment/Plan: 1. History of chronic anemia. 2. Polycythemia rubra vera. 3. Atrial fibrillation. 4. Hypertension. 5. Obstructive sleep apnea. 6. Coronary artery disease. 7. History of UT in the past. 8. Hypercholesteremia. 9. CHF. 10. UTI/pyelonephritis. 11. gallstones 12. hepatomegaly 13. splenomegaly 14. right pleural effusion patient refused colonoscopy fu stool ob>>>neg fu H&H>>> stable abd us and CT>>> reviewed will fu Subjective ROS Limited/Unobtainable: No Allergies: Coded Allergies: No Known Allergies (Unverified , 04/24/18) Objective Last 24 Hour Vital Signs Date Time Temp Pulse Resp B/P (MAP) Pulse Ox O2 Delivery O2 Flow Rate FiO2 09/30/19 09:00 Nasal Cannula 2.0 09/30/19 08:38 68 131/75 09/30/19 08:38 68 09/30/19 08:00 97.0 68 18 131/75 (93) 92 09/30/19 04:00 98.6 65 17 126/57 (80) 92 09/30/19 00:00 98.4 69 17 123/55 (77) 92 09/29/19 21:16 Nasal Cannula 2.0 09/29/19 20:52 97 Nasal Cannula 2.0 28 09/29/19 20:40 64 106/59 09/29/19 20:00 98.5 63 18 119/54 (75) 92 09/29/19 16:00 98.4 64 18 106/59 (75) 92 09/29/19 12:00 98.1 60 18 99/55 (70) 92 Intake and Output 09/29/19 09/30/19 19:00 07:00 Intake Total 790 ml Balance 790 ml Intake Oral 540 ml Blood Product 250 ml # Voids 6 5 Laboratory Tests 09/29/19 23:20: White Blood Count 4.5L, Red Blood Count 3.51L, Hemoglobin 10.5#L, Hematocrit 31.5#L, Mean Corpuscular Volume 90, Mean Corpuscular Hemoglobin 29.8, Mean Corpuscular Hemoglobin Concent 33.3, Red Cell Distribution Width 16.7H, Platelet Count 172, Mean Platelet Volume 11.4H, Neutrophils (%) (Auto) 60.1, Lymphocytes (%) (Auto) 29.1, Monocytes (%) (Auto) 5.1, Eosinophils (%) (Auto) 0.5, Basophils (%) (Auto) 5.2H 09/30/19 06:19: White Blood Count 3.9L, Red Blood Count 3.59L, Hemoglobin 10.7L, Hematocrit 32.2L, Mean Corpuscular Volume 90, Mean Corpuscular Hemoglobin 29.8, Mean Corpuscular Hemoglobin Concent 33.3, Red Cell Distribution Width 16.9H, Platelet Count 170, Mean Platelet Volume 9.7, Neutrophils (%) (Auto) 63.9, Lymphocytes (%) (Auto) 27.0, Monocytes (%) (Auto) 4.4, Eosinophils (%) (Auto) 0.7, Basophils (%) (Auto) 3.9H, Sodium Level 140, Potassium Level 4.1, Chloride Level 107, Carbon Dioxide Level 29, Anion Gap 4L, Blood Urea Nitrogen 22H, Creatinine 0.9, Estimat Glomerular Filtration Rate > 60, Glucose Level 78, Calcium Level 8.5 Height (Feet): 5 Height (Inches): 1.00 Weight (Pounds): 121 General Appearance: alert EENT: normal ENT inspection Neck: normal inspection Cardiovascular: normal rate Respiratory/Chest: lungs clear Abdomen: normal bowel sounds, non tender, soft Extremities: non-tender Blair Kaiser MD Sep 30, 2019 10:00
[2019-09-30 12:00] VITALS: BP 109/63
--- NOTE | 2019-09-30 12:11 | NUR ---
NURSE NOTES: Rn received discharge order and spoke to patient's daughter in law Eden Moreno and let her know about discharge and she said she gets off from work after 6pm and her Kishan gets off after 11pm. everyone is working today. RN told her about discharge policy and she will look for someone to pick patient up and will inform RN. Awaiting for return call.
--- NOTE | 2019-09-30 12:45 | Internal Med Progress Note ---
Subjective Date of Service: Sep 30, 2019 Physician Name Roshan Edwards Attending Physician Antonio Adrian MD Current Medications Medications (Trade) Dose Ordered Sig/Escobar Route PRN Reason Start Time Stop Time Status Last Admin Dose Admin Acetaminophen (Tylenol) 650 mg Q4H PRN ORAL T>100.5 09/24/19 01:03 10/21/19 01:02 Amiodarone HCl (Cordarone) 200 mg DAILY ORAL 09/24/19 09:00 12/21/19 08:59 09/30/19 08:38 Digoxin (Lanoxin) 0.125 mg DAILY ORAL 09/24/19 09:00 12/22/19 08:59 09/30/19 08:38 Folic Acid (Folate) 1 mg DAILY ORAL 09/24/19 09:00 10/24/19 08:59 09/30/19 08:38 Gabapentin (Neurontin) 300 mg THREE TIMES A DAY ORAL 09/24/19 09:00 10/22/19 08:59 09/30/19 08:38 Metoprolol Tartrate (Lopressor) 50 mg EVERY 12 HOURS ORAL 09/24/19 21:00 12/20/19 20:59 09/30/19 08:38 Ondansetron HCl (Zofran) 4 mg Q6H PRN IVP Nausea & Vomiting 09/24/19 01:15 10/21/19 19:14 Allergies: Coded Allergies: No Known Allergies (Unverified , 04/24/18) ROS Limited/Unobtainable: No Constitutional: Reports: no symptoms HEENT: Reports: no symptoms Cardiovascular: Reports: no symptoms Respiratory: Reports: no symptoms Gastrointestinal/Abdominal: Reports: no symptoms Genitourinary: Reports: no symptoms Neurologic/Psychiatric: Reports: no symptoms Subjective 79 YO F admitted with generalized weakness. Now severe anemia. Cover for Int kizzy-Dr Adrian. Objective Last Vital Signs Date Time Temp Pulse Resp B/P (MAP) Pulse Ox O2 Delivery O2 Flow Rate FiO2 09/30/19 09:00 Nasal Cannula 2.0 09/30/19 08:38 68 131/75 09/30/19 08:00 97.0 18 92 09/29/19 20:52 28 Laboratory Tests Test 09/29/19 23:20 09/30/19 06:19 White Blood Count 4.5 K/UL (4.8-10.8) L 3.9 K/UL (4.8-10.8) L Red Blood Count 3.51 M/UL (4.20-5.40) L 3.59 M/UL (4.20-5.40) L Hemoglobin 10.5 G/DL (12.0-16.0) #L 10.7 G/DL (12.0-16.0) L Hematocrit 31.5 % (37.0-47.0) #L 32.2 % (37.0-47.0) L Mean Corpuscular Volume 90 FL (80-99) 90 FL (80-99) Mean Corpuscular Hemoglobin 29.8 PG (27.0-31.0) 29.8 PG (27.0-31.0) Mean Corpuscular Hemoglobin Concent 33.3 G/DL (32.0-36.0) 33.3 G/DL (32.0-36.0) Red Cell Distribution Width 16.7 % (11.6-14.8) H 16.9 % (11.6-14.8) H Platelet Count 172 K/UL (150-450) 170 K/UL (150-450) Mean Platelet Volume 11.4 FL (6.5-10.1) H 9.7 FL (6.5-10.1) Neutrophils (%) (Auto) 60.1 % (45.0-75.0) 63.9 % (45.0-75.0) Lymphocytes (%) (Auto) 29.1 % (20.0-45.0) 27.0 % (20.0-45.0) Monocytes (%) (Auto) 5.1 % (1.0-10.0) 4.4 % (1.0-10.0) Eosinophils (%) (Auto) 0.5 % (0.0-3.0) 0.7 % (0.0-3.0) Basophils (%) (Auto) 5.2 % (0.0-2.0) H 3.9 % (0.0-2.0) H Sodium Level 140 MMOL/L (136-145) Potassium Level 4.1 MMOL/L (3.5-5.1) Chloride Level 107 MMOL/L (98-107) Carbon Dioxide Level 29 MMOL/L (21-32) Anion Gap 4 mmol/L (5-15) L Blood Urea Nitrogen 22 mg/dL (7-18) H Creatinine 0.9 MG/DL (0.55-1.30) Estimat Glomerular Filtration Rate > 60 mL/min (>60) Glucose Level 78 MG/DL (74-106) Calcium Level 8.5 MG/DL (8.5-10.1) Intake and Output 09/29/19 09/30/19 19:00 07:00 Intake Total 790 ml Balance 790 ml Intake Oral 540 ml Blood Product 250 ml # Voids 6 5 Objective PHYSICAL EXAMINATION: GENERAL: The patient is a well-developed, well-nourished female, in no apparent distress. HEENT: Eyes, pupils equal and responsive to light and accommodation. Extraocular movements are intact. NECK: Supple without lymphadenopathy. CHEST: Lungs are clear to auscultation bilaterally without wheezes or rales. CARDIOVASCULAR: Regular rate. S1-S2 are normal without murmurs, rubs, or gallops. ABDOMEN: Soft, nontender, nondistended with positive bowel sounds. No evidence of hepatosplenomegaly. Currently no rebound or guarding noted. EXTREMITIES: Negative for clubbing, cyanosis, or edema. RECTAL/GENITAL: Not performed. NEUROLOGICAL: Cranial nerves II through XII are grossly intact without focal deficits. Motor strength is 5/5 bilaterally. Deep tendon reflexes are 2+, plantar. Assessment/Plan Assessment/Plan ASSESSMENT: This is an 79-year-old female. 1. Generalized weakness. 2. Severe anemia. 3. Chronic atrial fibrillation. 4. Polycythemia vera. 5. History of cerebrovascular accident/transient ischemic attack. 6. Obstructive sleep apnea. 7. Coronary artery disease. 8. Hypercholesterolemia. 9. Congestive heart failure. 10. History of sick sinus syndrome. 11. History of right hemothorax. 12. Protein calorie malnutrition TREATMENT: 1. Generalized weakness. This is probably secondary to severe anemia as below. 2. Severe anemia-macrocytic anemia A hematology consultation has been obtained with Dr Kaplan. The patient is S/P transfusion 6 units of packed RBCs; due for transfusion 2 more units PRBC today 09/29/19 S/P IV venofer X 5 days. Hemoglobin stable for 5 days. GI consultation =Dr Kaiser.; Patient refused colonoscopy 3. Polycythemia vera, as above. 4. Chronic atrial fibrillation/coronary artery disease. A cardiology consultation has been obtained with Dr. Freitas. 5. Sick sinus syndrome. The patient is status post pacemaker implantation. Await pacemaker interrogation 6. Hypercholesterolemia. 7. History of congestive heart failure. 8. History of right hemothorax, status post VATS procedure. 9. Await colonoscopy 10. Patient Refused ultrasound 11. Discharge Home with [facility] today Roshan Edwards MD Sep 30, 2019 12:45
--- NOTE | 2019-09-30 13:22 | Pulmonology Progress Note ---
Subjective ROS Limited/Unobtainable: No Constitutional: Reports: no symptoms HEENT: Repors: no symptoms Respiratory: Reports: no symptoms Allergies: Coded Allergies: No Known Allergies (Unverified , 04/24/18) Objective Last 24 Hour Vital Signs Date Time Temp Pulse Resp B/P (MAP) Pulse Ox O2 Delivery O2 Flow Rate FiO2 09/30/19 12:00 97.5 60 17 109/63 (78) 94 09/30/19 09:00 Nasal Cannula 2.0 09/30/19 08:38 68 131/75 09/30/19 08:38 68 09/30/19 08:00 97.0 68 18 131/75 (93) 92 09/30/19 04:00 98.6 65 17 126/57 (80) 92 09/30/19 00:00 98.4 69 17 123/55 (77) 92 09/29/19 21:16 Nasal Cannula 2.0 09/29/19 20:52 97 Nasal Cannula 2.0 28 09/29/19 20:40 64 106/59 09/29/19 20:00 98.5 63 18 119/54 (75) 92 09/29/19 16:00 98.4 64 18 106/59 (75) 92 Intake and Output 09/29/19 09/30/19 18:59 06:59 Intake Total 790 ml Balance 790 ml Intake Oral 540 ml Blood Product 250 ml # Voids 6 5 General Appearance: no acute distress, cachetic - [place] speaking female HEENT: normocephalic, atraumatic Respiratory: chest wall non-tender, lungs clear, no respiratory distress, no accessory muscle use Cardiovascular: normal peripheral pulses, normal rate Abdomen: normal bowel sounds, soft, non tender Skin: no rash, other - posterior and lateral right chest healed scar 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, alert, responsive Lymphatic: no neck adenopathy Musculoskeletal: atrophy - BLE Laboratory Tests 09/29/19 23:20: White Blood Count 4.5L, Red Blood Count 3.51L, Hemoglobin 10.5#L, Hematocrit 31.5#L, Mean Corpuscular Volume 90, Mean Corpuscular Hemoglobin 29.8, Mean Corpuscular Hemoglobin Concent 33.3, Red Cell Distribution Width 16.7H, Platelet Count 172, Mean Platelet Volume 11.4H, Neutrophils (%) (Auto) 60.1, Lymphocytes (%) (Auto) 29.1, Monocytes (%) (Auto) 5.1, Eosinophils (%) (Auto) 0.5, Basophils (%) (Auto) 5.2H 09/30/19 06:19: White Blood Count 3.9L, Red Blood Count 3.59L, Hemoglobin 10.7L, Hematocrit 32.2L, Mean Corpuscular Volume 90, Mean Corpuscular Hemoglobin 29.8, Mean Corpuscular Hemoglobin Concent 33.3, Red Cell Distribution Width 16.9H, Platelet Count 170, Mean Platelet Volume 9.7, Neutrophils (%) (Auto) 63.9, Lymphocytes (%) (Auto) 27.0, Monocytes (%) (Auto) 4.4, Eosinophils (%) (Auto) 0.7, Basophils (%) (Auto) 3.9H, Sodium Level 140, Potassium Level 4.1, Chloride Level 107, Carbon Dioxide Level 29, Anion Gap 4L, Blood Urea Nitrogen 22H, Creatinine 0.9, Estimat Glomerular Filtration Rate > 60, Glucose Level 78, Calcium Level 8.5 Current Medications Medications (Trade) Dose Ordered Sig/Escobar Route PRN Reason Start Time Stop Time Status Last Admin Dose Admin Acetaminophen (Tylenol) 650 mg Q4H PRN ORAL T>100.5 09/24/19 01:03 10/21/19 01:02 Amiodarone HCl (Cordarone) 200 mg DAILY ORAL 09/24/19 09:00 12/21/19 08:59 09/30/19 08:38 Digoxin (Lanoxin) 0.125 mg DAILY ORAL 09/24/19 09:00 12/22/19 08:59 09/30/19 08:38 Folic Acid (Folate) 1 mg DAILY ORAL 09/24/19 09:00 10/24/19 08:59 09/30/19 08:38 Gabapentin (Neurontin) 300 mg THREE TIMES A DAY ORAL 09/24/19 09:00 10/22/19 08:59 09/30/19 08:38 Metoprolol Tartrate (Lopressor) 50 mg EVERY 12 HOURS ORAL 09/24/19 21:00 12/20/19 20:59 09/30/19 08:38 Ondansetron HCl (Zofran) 4 mg Q6H PRN IVP Nausea & Vomiting 09/24/19 01:15 10/21/19 19:14 Assessment/Plan Problems: (1) Anemia (2) Myelofibrosis (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 f/u GI recommendations symptomatic treatment Kelly Mejia MD Sep 30, 2019 13:22
--- NOTE | 2019-09-30 13:32 | Cardiac Electrophysiology PN ---
Assessment/Plan Assessment/Plan 1. Weakness due to profound anemia, hemoglobin of 4.8. S/P four units of blood transfusion. GI workup for last two years had two endoscopies with last one in July 2018, which was negative for obvious GI bleeding. Stool OBs are negative. S/P ABD US, Chests CT. Refused Colonoscopy S/P PRBC again 09/28 2. Status post [employer] PPM in 2010 and gen change by me in 2018 with normal function by interrogation 3. PAF with RVR. In atrially paced rhythm on amiodarone 200 mg daily, metoprolol 50 mg bid and digoxin 0.125 mg daily . Off anticoagulation for severe anemia requiring multiple blood transfusions in the past. 4. Hypertension, on metoprolol. 5. Urinary tract infection. 6. History of polycythemia vera. 7. Severe pulmonary hypertension with PA pressure of 71. 8. Hemothorax status post VATS by Dr. Malik in 07/2019. RILEY RN and Dr Edwards DC home today. Subjective Subjective Alert in NAD, No CP. S/P PRBC today x 2. Lopressor held as BP was in 90s DC home today pending Objective Last 24 Hour Vital Signs Date Time Temp Pulse Resp B/P (MAP) Pulse Ox O2 Delivery O2 Flow Rate FiO2 09/30/19 12:00 97.5 60 17 109/63 (78) 94 09/30/19 09:00 Nasal Cannula 2.0 09/30/19 08:38 68 131/75 09/30/19 08:38 68 09/30/19 08:00 97.0 68 18 131/75 (93) 92 09/30/19 04:00 98.6 65 17 126/57 (80) 92 09/30/19 00:00 98.4 69 17 123/55 (77) 92 09/29/19 21:16 Nasal Cannula 2.0 09/29/19 20:52 97 Nasal Cannula 2.0 28 09/29/19 20:40 64 106/59 09/29/19 20:00 98.5 63 18 119/54 (75) 92 09/29/19 16:00 98.4 64 18 106/59 (75) 92 Intake and Output 09/29/19 09/30/19 19:00 07:00 Intake Total 790 ml Balance 790 ml Intake Oral 540 ml Blood Product 250 ml # Voids 6 5 Laboratory Tests Test 8/18/20 23:20 09/30/19 06:19 White Blood Count 4.5 K/UL (4.8-10.8) L 3.9 K/UL (4.8-10.8) L Red Blood Count 3.51 M/UL (4.20-5.40) L 3.59 M/UL (4.20-5.40) L Hemoglobin 10.5 G/DL (12.0-16.0) #L 10.7 G/DL (12.0-16.0) L Hematocrit 31.5 % (37.0-47.0) #L 32.2 % (37.0-47.0) L Mean Corpuscular Volume 90 FL (80-99) 90 FL (80-99) Mean Corpuscular Hemoglobin 29.8 PG (27.0-31.0) 29.8 PG (27.0-31.0) Mean Corpuscular Hemoglobin Concent 33.3 G/DL (32.0-36.0) 33.3 G/DL (32.0-36.0) Red Cell Distribution Width 16.7 % (11.6-14.8) H 16.9 % (11.6-14.8) H Platelet Count 172 K/UL (150-450) 170 K/UL (150-450) Mean Platelet Volume 11.4 FL (6.5-10.1) H 9.7 FL (6.5-10.1) Neutrophils (%) (Auto) 60.1 % (45.0-75.0) 63.9 % (45.0-75.0) Lymphocytes (%) (Auto) 29.1 % (20.0-45.0) 27.0 % (20.0-45.0) Monocytes (%) (Auto) 5.1 % (1.0-10.0) 4.4 % (1.0-10.0) Eosinophils (%) (Auto) 0.5 % (0.0-3.0) 0.7 % (0.0-3.0) Basophils (%) (Auto) 5.2 % (0.0-2.0) H 3.9 % (0.0-2.0) H Sodium Level 140 MMOL/L (136-145) Potassium Level 4.1 MMOL/L (3.5-5.1) Chloride Level 107 MMOL/L (98-107) Carbon Dioxide Level 29 MMOL/L (21-32) Anion Gap 4 mmol/L (5-15) L Blood Urea Nitrogen 22 mg/dL (7-18) H Creatinine 0.9 MG/DL (0.55-1.30) Estimat Glomerular Filtration Rate > 60 mL/min (>60) Glucose Level 78 MG/DL (74-106) Calcium Level 8.5 MG/DL (8.5-10.1) Objective HEAD AND NECK: No JVD or carotid bruits. Sclerae are very pale. LUNGS: Clear. CARDIOVASCULAR: Shows regular S1 and S2 with no gallop. Pacemaker in the left subclavian, healed. ABDOMEN: Soft. EXTREMITIES: No pitting edema. River Freitas MD Sep 30, 2019 13:32
--- NOTE | 2019-09-30 14:23 | Surgery Progress Note ---
Surgery Progress Note Subjective Additional Comments doing well resting comfortable no complaints labs noted Objective Last 24 Hour Vital Signs Date Time Temp Pulse Resp B/P (MAP) Pulse Ox O2 Delivery O2 Flow Rate FiO2 09/30/19 12:00 97.5 60 17 109/63 (78) 94 09/30/19 09:00 Nasal Cannula 2.0 09/30/19 08:38 68 131/75 09/30/19 08:38 68 09/30/19 08:00 97.0 68 18 131/75 (93) 92 09/30/19 04:00 98.6 65 17 126/57 (80) 92 09/30/19 00:00 98.4 69 17 123/55 (77) 92 09/29/19 21:16 Nasal Cannula 2.0 09/29/19 20:52 97 Nasal Cannula 2.0 28 09/29/19 20:40 64 106/59 09/29/19 20:00 98.5 63 18 119/54 (75) 92 09/29/19 16:00 98.4 64 18 106/59 (75) 92 I&O Intake and Output 09/29/19 09/30/19 19:00 07:00 Intake Total 790 ml Balance 790 ml Intake Oral 540 ml Blood Product 250 ml # Voids 6 5 Dressing: dry Wound: clean Cardiovascular: RSR Respiratory: clear, decreased breath sounds Abdomen: soft, non-tender, present bowel sounds Extremities: no edema, no cyanosis Laboratory Tests Test 09/29/19 23:20 09/30/19 06:19 White Blood Count 4.5 K/UL (4.8-10.8) L 3.9 K/UL (4.8-10.8) L Red Blood Count 3.51 M/UL (4.20-5.40) L 3.59 M/UL (4.20-5.40) L Hemoglobin 10.5 G/DL (12.0-16.0) #L 10.7 G/DL (12.0-16.0) L Hematocrit 31.5 % (37.0-47.0) #L 32.2 % (37.0-47.0) L Mean Corpuscular Volume 90 FL (80-99) 90 FL (80-99) Mean Corpuscular Hemoglobin 29.8 PG (27.0-31.0) 29.8 PG (27.0-31.0) Mean Corpuscular Hemoglobin Concent 33.3 G/DL (32.0-36.0) 33.3 G/DL (32.0-36.0) Red Cell Distribution Width 16.7 % (11.6-14.8) H 16.9 % (11.6-14.8) H Platelet Count 172 K/UL (150-450) 170 K/UL (150-450) Mean Platelet Volume 11.4 FL (6.5-10.1) H 9.7 FL (6.5-10.1) Neutrophils (%) (Auto) 60.1 % (45.0-75.0) 63.9 % (45.0-75.0) Lymphocytes (%) (Auto) 29.1 % (20.0-45.0) 27.0 % (20.0-45.0) Monocytes (%) (Auto) 5.1 % (1.0-10.0) 4.4 % (1.0-10.0) Eosinophils (%) (Auto) 0.5 % (0.0-3.0) 0.7 % (0.0-3.0) Basophils (%) (Auto) 5.2 % (0.0-2.0) H 3.9 % (0.0-2.0) H Sodium Level 140 MMOL/L (136-145) Potassium Level 4.1 MMOL/L (3.5-5.1) Chloride Level 107 MMOL/L (98-107) Carbon Dioxide Level 29 MMOL/L (21-32) Anion Gap 4 mmol/L (5-15) L Blood Urea Nitrogen 22 mg/dL (7-18) H Creatinine 0.9 MG/DL (0.55-1.30) Estimat Glomerular Filtration Rate > 60 mL/min (>60) Glucose Level 78 MG/DL (74-106) Calcium Level 8.5 MG/DL (8.5-10.1) Plan Problems: (1) ACS (acute coronary syndrome) (2) Pyelonephritis (3) CAD (coronary artery disease) (4) COPD (chronic obstructive pulmonary disease) (5) positional vertigo (6) KELVIN (obstructive sleep apnea) (7) Peripheral neuropathy (8) Myelofibrosis (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 hx of bleeding held anticoagulation since prior right hemothorax s/p evacuation and vats transfusing prbc coags noted may need ffp ddx includes possible GI hemorrhage. protonix ordered pending GI eval consider scope CT once stable US abd ordered thank you will follow with recs trend h/h transfuse prn Gallbladder demonstrates a gallstone. This also reported on same day CT. Sonographic Camacho's sign is negative. Common bile duct measures 5 mm in diameter. No intrahepatic biliary ductal dilatation. Liver demonstrates normal echogenicity, no focal abnormality. Portal vein and hepatic veins are patent. Pancreas is unremarkable. The spleen demonstrates a complex upper pole cyst that measures 2.7 cm in diameter. The spleen is borderline enlarged. There are bilateral pleural effusions Left kidney measures 10.2 cm in length. Right kidney measures 9.2 cm length. Both kidneys demonstrate normal echogenicity. There is no hydronephrosis. No focal abnormality . Non-aneurysmal abdominal aorta . Impression: Cholelithiasis. Negative for dilated bile ducts 2.7 cm complex upper pole splenic cyst, also reported on prior imaging studies. Bilateral pleural effusions Chest: The lungs demonstrate a mosaic perfusion pattern, which is more striking than that seen previously. Some atelectasis and consolidation is seen involving both lower lobes. This appears similar on the right, slightly more extensive on the left. There is a moderate-sized right pleural effusion which appears similar to the previous study. There is a small left pleural effusion which is new since the previous study. Previous exam demonstrated a 1.5 cm opacity in the inferior right azygoesophageal recess. This is not evident currently although could be obscured by surrounding atelectatic lung. The heart is enlarged. There is a left chest pacemaker again demonstrated. No pericardial effusion. No mediastinal or hilar mass or adenopathy. Right lower pole thyroid calcification is again demonstrated. No axillary or chest wall mass or adenopathy. There are fairly profound degenerative changes of the bilateral shoulders. There is evidence of interim healing of previously demonstrated right rib fractures, nearly but not completely healed as some fracture lines persist. There are degenerative changes of the thoracic spine noted. Abdomen pelvis: What is probably a normal appendix is demonstrated. There is extensive colonic diverticulosis. No evidence of diverticulitis. The rectum is mildly distended, mostly with gas with some stool as well. No small bowel distention or small bowel wall thickening. Numerous surgical clips are seen in the retroperitoneum and left side of the pelvis. The stomach and duodenum are unremarkable. The gallbladder contains a gallstone. No biliary ductal dilatation. The liver is mildly enlarged. The pancreas is unremarkable. The spleen is enlarged, measuring 14 cm long axis dimension. It demonstrates a complex upper pole cyst, also previously demonstrated the adrenals and kidneys are unremarkable. There is a retroaortic left renal vein incidentally noted. The uterus is absent.. The bladder is unremarkable. The bones demonstrate degenerative spondylosis changes. IMPRESSION: Cardiomegaly Unchanged moderate right pleural effusion, since June 2019. New small left pleural effusion Bilateral mosaic perfusion pattern, probably on the basis of pulmonary edema Bilateral basilar compressive atelectasis and possible consolidation Interim healing of previously demonstrated right rib fractures Previously demonstrated right azygoesophageal recess lesion is no longer evident , may have resolved or may be obscured by surrounding lung parenchyma. Cholelithiasis Hepatomegaly Splenomegaly Splenic cystic lesion, unchanged from prior exam Postsurgical changes as described, including pacemaker, evidence of prior hysterectomy, evidence of prior pelvic lymph node dissection, prior hysterectomy Errol Estrada Sep 30, 2019 14:23
--- NOTE | 2019-09-30 14:55 | NUR ---
NURSE NOTES: Patient discharged to home accompanied by patient's nephew via private car in stable condition. v/S stable prior to discharge. Patient denied pain or discomfort. Not in acute respiratory/cardiac distress. Patient was on room air sating was 92-93% prior to discharge and per patent's daughter in law patient has home oxygen. discharge instruction given to the patient and daughter in law Eden to follow up with home health and to fill digoxin and instructed about medication again to hold if AP is less than 60 and to follow up with Dr. kaplan.Dr. Kaplan's phone number was given. Skin is intact. All belongings accounted for and sent home with the patient. IV and ID were removed. No s/s of infection on IV removal site. RN and BANQUET SERVER escorted patient to the car without any issues.
[2019-09-30] MEDS ORDERED: Tubing IV Secondary IV ONE (15:00)
[2019-09-30] MEDS ORDERED: Tubing Blood Filter IV ONE (15:00)
--- NOTE | 2019-10-01 16:32 | Discharge Summary ---
Discharge Summary Discharge Summary _ DATE OF ADMISSION: 09/21/2019 DATE OF DISCHARGE: 09/30/2019 DISCHARGED BY: Dr. Adrian REASON FOR ADMISSION: 79 years old female with past medical history of symptomatic anemia, hypertension, CVA/TIA, atrial fibrillation, pacemaker secondary to sick sinus syndrome, polycythemia vera, history of VATS secondary to right hemothorax, obstructive sleep apnea, coronary artery disease, history of CT, hypertension, CHF, was sent by her primary care provider due to generalized weakness. Patient reported gradual onset of symptoms with moderate severity , lasting several days. She denied chest pain or shortness of breath. She denied fever and chills. No cough . No nausea , vomiting or diarrhea. No melena, hematochezia or hematemesis. Upon evaluation vital signs were stable Pulse oximetry was stable on room air. Laboratory work-up revealed significant anemia with hemoglobin 4.8, hematocrit 15. WBC 6.1. Platelet counts 209. Rapid COVID-19 was negative Chemistry demonstrated stable electrolytes. BUN 23, creatinine 0.9. Glucose 130. Troponin negative proBNP 195. EKG revealed sinus rhythm no acute ischemic changes. Urinalysis revealed +1 leukocyte esterase, no pyuria and moderate bacteria. Chest x-ray revealed minimal atelectasis in the medial left lung base. No definite acute process. Left chest pacemaker noted. CT of the head demonstrated chronic and age-related changes, no acute intracranial bleeding or mass-effect. Old bilateral basal ganglia lacunar infarcts. In emergency department patient received fluids , pancultured , typed and crossed, started on empiric antibiotics and admitted for further management. CONSULTANTS: guest services lead Dr. Lozoya pulmonary Dr Mejia GI specialist Dr Kaiser surgery Dr. Estrada hematology/oncologist Dr. Kaplan [facility] COU[facility]SE: Patient admitted and started on blood transfusion. Patient received total of 6 units of packed red blood cells. Stool for occult blood was negative x2. Anemia work-up revealed evidence of anemia of chronic disease. Hemoglobin hematocrit were closely monitored with goal to keep hemoglobin above 7. Supplemental oxygen provided and titrated to keep pulse oximetry above 92%. Pulmonary toilet provided as needed. DVT prophylaxis provided. Pulse oximetry remained stable on oxygen 2 L via nasal cannula. CT scan of the chest, abdomen and pel pelvis revealed unchanged moderate right pleural effusion since June 2019. Bilateral mosaic perfusion pattern probably on the basis of pulmonary edema. Bilateral basilar compressive atelectasis and possible consolidation. Previously demonstrated right azygoesophageal recess lesion was no longer evident , may have resolved or may be obscured by surrounding lung parenchyma. Cholelithiasis. Hepatomegaly and splenomegaly.. Per guest services lead , generalized weakness was due to profound anemia with hemoglobin of 4.8. Patient had a pacemaker placement in 2010 and generator change in 2019. Interrogation revealed normal functioning. Echocardiogram demonstrated preserved ejection fraction 65 to 70%. No evidence of left ventricular hypertrophy. No evidence of wall motion abnormality. Right ventricular systolic pressure of 86 consistent with severe pulmonary hypertension Mild to moderate mitral regurgitation. Patient demonstrated paroxysmal atrial fibrillation with rapid ventricular response. Rate was controlled with amiodarone, metoprolol and digoxin. Patient was off anticoagulation secondary to severe anemia , requiring multiple blood transfusion. Blood pressure was managed with beta-kelli and remained stable. Repeated troponin was negative as well. Patient was ruled out for acute CT. GI specialist followed. Patient declined colonoscopy. GI prophylaxis with PPI provided. Prior EGD showed gastritis. Abdominal ultrasound revealed cholelithiasis,but was negative for dilated bile ducts. Bilateral pleural effusion. 2.7 cm complex upper pole splenic cyst reported on prior study as well. Blood cultures were negative. Urine culture revealed mixed gram-positive organisms. Patient had no leukocytosis, no fevers. Initially started antibiotic stopped. Patient had diagnosis of polycythemia vera with Rustam 2+. In the past patient was on the hydroxyurea. [place] Hammerer recommended to restart hydroxyurea as outpatient when hemoglobin nd hematocrit stable. Hemoglobin and hematocrit stabilized with blood transfusion. Prior to discharge hemoglobin 10.7, hematocrit 32.2. Epogen continued. Rapid HIV test was negative. Counts were closely monitored. Pancytopenia was due to underlying chronic medical disease, including polycythemia vera . Patient had anemia of chronic disease, thrombocytopenia ( resolved) and leukopenia. Prior to discharge WBC 3.9, hemoglobin 10.7, hematocrit 32.2 and platelet count stable 170. Supportive care provided. Patient clinically stabilized and was ready for discharge home with home health services to follow. Patient was advised on outpatient follow-up with warehouse specialist for further management of polycythemia vera. FINAL DIAGNOSES: Severe anemia requiring blood transfusion Polycythemia vera History of VATS secondary to right hemothorax Moderate right pleural effusion Severe pulmonary hypertension Coronary artery disease with history of CT Status post Hookit PPM in 2011 ( due to SSS), generator change in 2019 Paroxysmal atrial fibrillation with rapid ventricular response Hypertension Pancytopenia Generalized weakness COPD Hypercholesterolemia Obstructive sleep apnea CHF DISCHARGE MEDICATIONS: See Medication Reconciliation list. DISCHARGE INSTRUCTIONS: Patient was discharged home with home health services. Follow up with primary care provider in one week. Follow-up with a warehouse specialist as outpatient I have been assigned to dictate discharge summary for this account. I was not involved in the patient's management. Cait Melchor NP Oct 01, 2019 16:32
== END 2019-09-30 15:01 | disposition home health service (06) | DRG 840 ==
LOC: EMR 14:46 → EDBEDREQ 14:55 → 2E 15:16 → EDBEDREQ 17:38 → 4E 09-23 22:47
PROC: 30233N1 Transfusion of Nonautologous Red Blood Cells into Peripheral Vein, Percutaneous Approach (ICD-10-PCS; principal; 2019-09-21)
DX: D45 Polycythemia vera (principal); G93.41 Metabolic encephalopathy; D61.818 Other pancytopenia; N39.0 Urinary tract infection, site not specified; J98.19 Other pulmonary collapse; I24.9 Acute ischemic heart disease, unspecified; E44.0 Moderate protein-calorie malnutrition; D75.81 Myelofibrosis; G47.33 Obstructive sleep apnea (adult) (pediatric); I11.0 Hypertensive heart disease with heart failure; I50.9 Heart failure, unspecified; I25.10 Atherosclerotic heart disease of native coronary artery without angina pectoris; Z86.73 Personal history of transient ischemic attack (TIA), and cerebral infarction without residual deficits; E78.00 Pure hypercholesterolemia, unspecified; Z95.0 Presence of cardiac pacemaker; G62.9 Polyneuropathy, unspecified; Z15.89 Genetic susceptibility to other disease; I48.0 Paroxysmal atrial fibrillation; H81.10 Benign paroxysmal vertigo, unspecified ear; I25.2 Old myocardial infarction; K80.80 Other cholelithiasis without obstruction; K57.90 Diverticulosis of intestine, part unspecified, without perforation or abscess without bleeding; R16.0 Hepatomegaly, not elsewhere classified; R16.1 Splenomegaly, not elsewhere classified; J44.9 Chronic obstructive pulmonary disease, unspecified; F09 Unspecified mental disorder due to known physiological condition
CPT/HCPCS: 36415; 36430; 70450; 71045; 71260; 74177; 76700; 80048; 80053; 80162; 81003; 82270; 82550; 82553; 82607; 82728; 82746; 82962; 83540; 83550; 83615; 83735; 83880; 84100; 84484; 85007; 85025; 85044; 85610; 85651; 85730; 86703; 86850; 86900; 86901; 86920; 87040; 87081; 87086; 93005; 93306; 96365; 96375; 99291; U0002

== ENCOUNTER 2019-12-11 15:18 | Inpatient (IN) | payer MEDICARE, OTHER ==
[~2019-12-11] VITALS: Ht 167.6 cm; Wt 49.9 kg
[~2019-12-11 15:18] MED LIST changes: +CALMOSEPTINE O3.5 G1 TP; +Digoxin ORAL; +VITAMIN A & D113 GM TP
[2019-12-11 15:30] VITALS: BP 101/60
[2019-12-11 16:22] LABS: ANION GAP 8 mmol/L (5-15); BLOOD UREA NITROGEN 29 mg/dL (7-18); CALCIUM 8.6 MG/DL (8.5-10.1); CARBON DIOXIDE 26 MMOL/L (21-32); CHLORIDE 107 MMOL/L (98-107); CREATININE 1.2 MG/DL (0.55-1.30); POTASSIUM 4.8 MMOL/L (3.5-5.1); SODIUM 141 MMOL/L (136-145)
[2019-12-11 16:30] VITALS: BP 90/58
[2019-12-11 16:39] LABS: ALANINE AMINOTRANSFERASE < 6 U/L (12-78); ALBUMIN 3.2 G/DL (3.4-5.0); ALBUMIN/GLOBULIN RATIO 1.1 (1.0-2.7); ALKALINE PHOSPHATASE 47 U/L (46-116); ASPARTATE AMINO TRANSFERASE 12 U/L (15-37); BILIRUBIN,TOTAL 0.8 MG/DL (0.2-1.0); CKMB < 0.5 NG/ML (0.0-3.6); CREATINE KINASE 14 U/L (26-308); FERRITIN 1694 NG/ML (8-388); LACTATE DEHYDROGENASE 521 U/L (81-234)
[2019-12-11 16:47] LABS: INR 1.3 (0.9-1.1)
--- NOTE | 2019-12-11 16:49 | Diagnostic Imaging Report ---
Indication: Chest pain Technique: One view of the chest Comparison: 09/21/2019 Findings: Again demonstrated is chronic appearing interstitial prominence and central bronchial wall thickening. There may be some superimposed hazy opacity in the upper lungs bilaterally. The heart size is upper limits normal. There is a left chest pacemaker. The pleural spaces are grossly clear. Impression: Chronic appearing interstitial prominence Hazy mostly upper lobe parenchymal opacities bilaterally, may reflect mild pulmonary edema. Correlate with clinical findings Other stable findings as noted
[2019-12-11 17:07] VITALS: BP 86/48
[2019-12-11 17:29] LABS: RED BLOOD COUNT 1.08 M/UL (4.20-5.40); WHITE BLOOD COUNT 7.7 K/UL (4.8-10.8)
[2019-12-11 17:30] LABS: HEMATOCRIT 9.9 % (37.0-47.0); HEMOGLOBIN 3.3 G/DL (12.0-16.0); MEAN CORPUSCULAR VOLUME 92 FL (80-99)
[2019-12-11] MEDS ORDERED: Pantoprazole Inj IVP ONE (17:30)
[2019-12-11 17:31] LABS: PLATELET COUNT 228 K/UL (150-450); RED CELL DISTRIBUTION WIDTH 27.9 % (11.6-14.8)
[2019-12-11 17:43] LABS: APPEARANCE,URINE CLEAR; BILIRUBIN, URINE NEGATIVE (NEGATIVE); GLUCOSE, URINE (UA) NEGATIVE (NEGATIVE); KETONES,URINE NEGATIVE (NEGATIVE); LEUKOCYTE ESTERASE ,URINE 1+ (NEGATIVE); NITRITE,URINE NEGATIVE (NEGATIVE); PH,URINE 8 (4.5-8.0); PROTEIN,URINE 2+ (NEGATIVE); UROBILINOGEN,URINE NORMAL MG/DL (0.0-1.0)
[2019-12-11 17:46] LABS: COLOR,URINE YELLOW
--- NOTE | 2019-12-11 17:57 | Emergency Room Report ---
History of Present Illness General Chief Complaint: Fever Source: Patient Present Illness HPI 79-year-old female presents for weakness. Coming from home. Brought in by EMS. Reported fever and weakness. Afebrile in triage. No reported chest pain or shortness of breath no cough. Denies vomiting or diarrhea. No other aggravating relieving factors. Denies any other associated symptoms Allergies: Coded Allergies: No Known Allergies (Unverified , 04/24/18) COVID-19 Screening Contact w/high risk pt: No Recent Travel to affected area: No Experienced COVID-19 symptoms?: No COVID-19 Testing performed MANAGER CUSTOMER SERVICE: No Patient History Past Medical History: HTN, CHF Past Surgical History: none Pertinent Family History: none Social History: Denies: smoking, alcohol use, drug use Now: No Immunizations: UTD Reviewed Nursing Documentation: PMH: Agreed; PSxH: Agreed Nursing Documentation-PMH Past Medical History: No History, Except For Hx Cardiac Problems: Yes - CHF Hx Hypertension: Yes Hx Pacemaker: Yes Hx Asthma: No Hx COPD: No Hx Diabetes: No Hx Cancer: No Hx Gastrointestinal Problems: Yes Hx Dialysis: No Hx Neurological Problems: Yes Hx Cerebrovascular Accident: No Hx Transient Ischemic Attacks: Yes Hx Seizures: No Hx Headaches: Yes Hx Numbness: Yes Hx Weakness: Yes - Generalized weakness Review of Systems All Other Systems: negative except mentioned in HPI Physical Exam Vital Signs Date Time Temp Pulse Resp B/P (MAP) Pulse Ox O2 Delivery O2 Flow Rate FiO2 12/10/ 15:13 99.9 83 17 101/60 (74) 93 Room Air Sp02 EP Interpretation: reviewed, normal General Appearance: cachetic, lethargic Head: normocephalic, atraumatic Eyes: bilateral eye normal inspection, bilateral eye PERRL ENT: hearing grossly normal, normal pharynx, no angioedema, normal voice Neck: full range of motion, supple/symm/no masses Respiratory: chest non-tender, lungs clear, normal breath sounds, speaking full sentences Cardiovascular #1: regular rate, rhythm, no edema Cardiovascular #2: 2+ carotid (R), 2+ carotid (L), 2+ radial (R), 2+ radial (L), 2+ dorsalis pedis (R), 2+ dorsalis pedis (L) Gastrointestinal: normal bowel sounds, non tender, soft, non-distended, no guarding, no rebound Rectal: heme negative stool Genitourinary: normal inspection, no CVA tenderness Musculoskeletal: back normal, normal range of motion, gait/station normal, non- tender Neurologic: alert, motor strength/tone normal, oriented x3, sensory intact, r esponsive, speech normal Psychiatric: judgement/insight normal, memory normal, mood/affect normal, no suicidal/homicidal ideation Reflexes: 3+ bicep (R), 3+ bicep (L), 3+ tricep (R), 3+ tricep (L), 3+ knee (R), 3+ knee (L) Skin: other - See nursing notes Lymphatic: no adenopathy Procedures Critical Care Time Critical Care Time i. I feel this is a highly complex case requiring extensive working including EKG/Rhythm strip, Xray/CT/US, Blood/urine lab work, repeat exams while in ED, and administration of strong opiates/narcotics for pain control, admission to hospital or close patient follow up. Total time: 60 min bedside evaluation and treatment excludes procedures (EKG). Reason for critical care: Hypotension, anemia Possible complications: hypotension, hypertension, AR, shock, arrhythmias, metabolic acidosis, end organ damage, respiratory failure. Interventions: Labs, IV fluids, EKG, chest x-ray, Covid swab, 30 cc/kg fluid bolus, blood transfusion, discussion with family, review of prior records Course: Patient presenting with weakness. Hemoglobin 3.4. Fecal occult negative. Given IV fluids. Given Protonix. Initially hypotensive improving with IV fluid boluses. Placed in Trendelenburg. PRBCs ordered and transfusion started. BP improving. Broad-spectrum antibiotics given. Discussed with family. Review of prior records shows similar anemia of chronic disease on rece nt hospitalization Consultations: nursing staff, EMS, family Performed by: Dr Guillermo Tolerated well condition = critical j. because of unstable vital signs this patient had a condition that could potentially threaten life or limb. I feel this is a critical patient who required my full attention while patient was considered critical. Total Critical Care Time excluding procedures was greater than 60 minutes Medical Decision Making Diagnostic Impression: Primary Impression: Anemia Qualified Codes: D64.9 - Anemia, unspecified Additional Impressions: Hypotension Qualified Codes: I95.9 - Hypotension, unspecified Weakness ER Course Hospital Course 79-year-old female presents to ED with weakness. No reported fevers or chills Differential diagnoses include: dehydration, anemia, sepsis, Covid Clinical course Patient placed on stretcher. Isolation. I wore full PPE. After initial history and physical I ordered labs, fluids, EKG, chest x-ray Labs- hemoglobin/hematocrit 3.3/9.9. Electrolytes okay, lactic ok. UA negative EKGnormal sinus rhythm no acute ischemic changes interpreted by me X-rayhaziness in upper lung jj. Cardiomegaly Covid negative Initially hypotensive. Improved with IV fluid boluses. Initially unable to transfuse because of antibodies. But blood ultimately available and transfusion started Case discussed with Dr Adrian admitted to his service Diagnosis -anemia, hypotension, weakness Admitted to SDU in critical condition Laboratory Tests Test 12/11/19 15:55 12/11/19 16:50 12/11/19 17:25 Prothrombin Time 13.6 SEC (9.30-11.50) H Prothromb Time International Ratio 1.3 (0.9-1.1) H Activated Partial Thromboplast Time 24 SEC (23-33) D-Dimer 1.45 mg/L FEU (0.00-0.49) H Sodium Level 141 MMOL/L (136-145) Potassium Level 4.8 MMOL/L (3.5-5.1) Chloride Level 107 MMOL/L (98-107) Carbon Dioxide Level 26 MMOL/L (21-32) Anion Gap 8 mmol/L (5-15) Blood Urea Nitrogen 29 mg/dL (7-18) H Creatinine 1.2 MG/DL (0.55-1.30) Estimat Glomerular Filtration Rate 43.1 mL/min (>60) Glucose Level 118 MG/DL (74-106) H Lactic Acid Level 1.80 mmol/L (0.4-2.0) Calcium Level 8.6 MG/DL (8.5-10.1) Ferritin 1694 NG/ML (8-388) H Total Bilirubin 0.8 MG/DL (0.2-1.0) Aspartate Amino Transf (AST/SGOT) 12 U/L (15-37) L Alanine Aminotransferase (ALT/SGPT) < 6 U/L (12-78) L Alkaline Phosphatase 47 U/L (46-116) Lactate Dehydrogenase 521 U/L (81-234) H Total Creatine Kinase 14 U/L (26-308) L Creatine Kinase MB < 0.5 NG/ML (0.0-3.6) Creatine Kinase MB Relative Index 3.5 Troponin I 0.009 ng/mL (0.000-0.056) C-Reactive Protein, Quantitative 4.5 mg/dL (0.00-0.90) H Pro-B-Type Natriuretic Peptide 5768 pg/mL (0-125) H Total Protein 6.2 G/DL (6.4-8.2) L Albumin 3.2 G/DL (3.4-5.0) L Globulin 3.0 g/dL Albumin/Globulin Ratio 1.1 (1.0-2.7) Lipase 56 U/L (73-393) L White Blood Count 7.7 K/UL (4.8-10.8) Red Blood Count 1.08 M/UL (4.20-5.40) L Hemoglobin 3.3 G/DL (12.0-16.0) *L Hematocrit 9.9 % (37.0-47.0) L Mean Corpuscular Volume 92 FL (80-99) Mean Corpuscular Hemoglobin 30.6 PG (27.0-31.0) Mean Corpuscular Hemoglobin Concent 33.2 G/DL (32.0-36.0) Red Cell Distribution Width 27.9 % (11.6-14.8) H Platelet Count 228 K/UL (150-450) Mean Platelet Volume 14.1 FL (6.5-10.1) H Neutrophils (%) (Auto) % (45.0-75.0) Lymphocytes (%) (Auto) % (20.0-45.0) Monocytes (%) (Auto) % (1.0-10.0) Eosinophils (%) (Auto) % (0.0-3.0) Basophils (%) (Auto) % (0.0-2.0) Neutrophils % (Manual) Pending Lymphocytes % (Manual) Pending Platelet Estimate Pending Platelet Morphology Pending Urine Color Yellow Urine Appearance Clear Urine pH 8 (4.5-8.0) Urine Specific Arnold 1.010 (1.005-1.035) Urine Protein 2+ (NEGATIVE) H Urine Glucose (UA) Negative (NEGATIVE) Urine Ketones Negative (NEGATIVE) Urine Blood Negative (NEGATIVE) Urine Nitrite Negative (NEGATIVE) Urine Bilirubin Negative (NEGATIVE) Urine Urobilinogen Normal MG/DL (0.0-1.0) Urine Leukocyte Esterase 1+ (NEGATIVE) H Urine RBC 0-2 /HPF (0 - 2) Urine WBC 2-4 /HPF (0 - 2) Urine Squamous Epithelial Cells Few /LPF (NONE/OCC) Urine Bacteria Few /HPF (NONE) EKG Diagnostic Results Troponin ordered: Yes Rate: normal Rhythm: NSR ST Segments: no acute changes ASA given to the pt in ED: No Rhythm Strip Diag. Results EP Interpretation: yes Rhythm: NSR, no PVC's, no ectopy Chest X-Ray Diagnostic Results Chest X-Ray Diagnostic Results : Chest X-Ray Ordered: Yes # of Views/Limited/Complete: 1 View Indication: Other EP Interpretation: Yes Interpretation: no effusion, no pneumothorax, other - Haziness bilateral upper lobes Impression: Other - Questionable pneumonia versus CHF Electronically Signed by: Electronically signed by Rush Guillermo MD Last Vital Signs Date Time Temp Pulse Resp B/P (MAP) Pulse Ox O2 Delivery O2 Flow Rate FiO2 12/11/19 17:07 99.9 80 17 86/48 98 Room Air 80 Status: improved Disposition: ADMITTED INPATIENT Condition: Critical Referrals: Antonio Adrian MD (PCP) Rush Guillermo MD Dec 11, 2019 17:57
[2019-12-11] MEDS ORDERED: Miralax 17gm pkt ORAL PRN (18:45)
[2019-12-11] MEDS ORDERED: Zolpidem 5mg tab ORAL PRN (18:45)
[2019-12-11 18:53] LABS: LACTATE DEHYDROGENASE 886 U/L (81-234)
--- NOTE | 2019-12-11 19:44 | History & Physical ---
History and Physical History & Physicial Antonio Adrian MD Dec 11, 2019 19:43
[2019-12-11 19:51] LABS: % IRON SATURATION 87 % (15-50); IRON 193 ug/dL (50-175); TOTAL IRON BINDING CAPACITY 221 ug/dL (250-450)
[2019-12-11 20:00] VITALS: BP 97/52
[2019-12-11] MEDS: Metoprolol Tartrate 50mg tab ORAL SCH (21:00)
[2019-12-12] VITALS: BP 99/57
[2019-12-12 04:00] VITALS: BP 105/60
[2019-12-12] MEDS ORDERED: Tubing IV Blood Pump IV ONE (07:04)
[2019-12-12] MEDS ORDERED: NS 275ml ONE (07:04)
[2019-12-12 07:30] LABS: HEMATOCRIT 17.4 % (37.0-47.0); MEAN CORPUSCULAR VOLUME 89 FL (80-99); PLATELET COUNT 168 K/UL (150-450); RED BLOOD COUNT 1.96 M/UL (4.20-5.40); RED CELL DISTRIBUTION WIDTH 19.5 % (11.6-14.8); WHITE BLOOD COUNT 6.3 K/UL (4.8-10.8)
[2019-12-12 07:44] LABS: INR 1.3 (0.9-1.1)
[2019-12-12 08:00] VITALS: BP 125/67
[2019-12-12 08:09] LABS: ALBUMIN 2.8 G/DL (3.4-5.0); CALCIUM 7.8 MG/DL (8.5-10.1); CREATININE 1.2 MG/DL (0.55-1.30); POTASSIUM 4.3 MMOL/L (3.5-5.1)
[2019-12-12] MEDS: Amiodarone 200mg tab ORAL SCH (09:11)
[2019-12-12] MEDS: Metoprolol Tartrate 50mg tab ORAL SCH ×2 (09:11→20:02)
--- NOTE | 2019-12-12 09:15 | Consultation ---
History of Present Illness General Date patient seen: Dec 12, 2019 Chief Complaint: Fever Present Illness HPI 79 year-old female with PHMx of JAK2 mutation, polycythemia vera > 10 years, myelofibrosis and myelodysplasia HTN, CVA/TIA, atrial fib, pacemaker presented to ED for evaluation of increased weakness. She was found to be profoundly anemic and is admitted for further work up. Allergies: Coded Allergies: No Known Allergies (Unverified , 04/24/18) Medication History Scheduled Amiodarone Hcl* (Pacerone*), 200 MG ORAL DAILY, (Reported) Furosemide* (Lasix*), 20 MG ORAL DAILY Gabapentin* (Gabapentin*), 300 MG ORAL THREE TIMES A DAY, (Reported) Metoprolol Tartrate* (Metoprolol Tartrate*), 50 MG ORAL EVERY 12 HOURS [Digoxin], 0.125 MG ORAL DAILY Scheduled PRN Acetaminophen* (Tylenol Extra Strength*), 500 MG ORAL Q6H PRN for For Pain, (Reported) Petrolatum,White/Lanolin (Vitamin A & D Ointment), 113 GM TP for dry skin, (Reported) Miscellaneous Medications Menthol/Zinc Oxide (Calmoseptine Ointment), 3.5 GM TP, (Reported) Patient History Healthcare decision maker Resuscitation status Advanced Directive on File Past Medical/Surgical History Past Medical/Surgical History: (1) CAD (coronary artery disease) (2) COPD (chronic obstructive pulmonary disease) (3) KELVIN (obstructive sleep apnea) (4) Myelofibrosis (5) Peripheral neuropathy (6) JAK2 V617F mutation (7) Polycythemia vera (8) Pacemaker (9) Paroxysmal A-fib Review of Systems All Other Systems: negative except mentioned in HPI Physical Exam General Appearance: cachetic, thin Lines, tubes and drains: peripheral HEENT: normocephalic, atraumatic Neck: non-tender, normal alignment Respiratory/Chest: chest wall non-tender, lungs clear Breasts: no masses Cardiovascular/Chest: normal rate Abdomen: normal bowel sounds, soft Genitourinary/Rectal: normal genital exam, normal rectal exam Last 24 Hour Vital Signs Date Time Temp Pulse Resp B/P (MAP) Pulse Ox O2 Delivery O2 Flow Rate FiO2 12/12/19 08:00 Room Air 12/12/19 08:00 97.2 74 125/67 (86) 12/12/19 08:00 72 12/12/19 04:00 Room Air 12/12/19 04:00 74 12/12/19 04:00 98.2 74 105/60 (75) 12/12/19 00:00 98.4 80 99/57 (71) 12/12/19 00:00 80 12/12/19 00:00 Room Air 12/11/19 21:00 83 97/52 12/11/19 20:08 Room Air 12/11/19 20:00 97.7 83 97/52 (67) 12/11/19 19:54 83 12/11/19 18:58 99.9 76 16 94/46 97 Room Air 80 12/11/19 17:07 99.9 80 17 86/48 98 Room Air 80 12/11/19 16:30 99.9 80 17 90/58 98 Room Air 80 12/11/19 15:30 83 17 Room Air 12/11/19 15:30 99.9 82 17 101/60 93 Room Air 12/11/19 15:13 99.9 83 17 101/60 (74) 93 Room Air Intake and Output 12/11/19 12/12/19 19:00 07:00 Intake Total 500 ml Output Total 400 ml Balance 100 ml Intake Blood Product 500 ml Output Urine Total 400 ml # Voids 1 Laboratory Tests Test 12/11/19 15:55 12/11/19 16:50 12/11/19 17:25 12/12/19 06:35 Erythrocyte Sedimentation Rate 167 MM/HR (0-30) H Reticulocyte Count 0.6 % (0.5-2.0) Prothrombin Time 13.6 SEC (9.30-11.50) H 14.1 SEC (9.30-11.50) H Prothromb Time International Ratio 1.3 (0.9-1.1) H 1.3 (0.9-1.1) H Activated Partial Thromboplast Time 24 SEC (23-33) 31 SEC (23-33) D-Dimer 1.45 mg/L FEU (0.00-0.49) H Sodium Level 141 MMOL/L (136-145) 142 MMOL/L (136-145) Potassium Level 4.8 MMOL/L (3.5-5.1) 4.3 MMOL/L (3.5-5.1) Chloride Level 107 MMOL/L (98-107) 111 MMOL/L (98-107) H Carbon Dioxide Level 26 MMOL/L (21-32) 23 MMOL/L (21-32) Anion Gap 8 mmol/L (5-15) 8 mmol/L (5-15) Blood Urea Nitrogen 29 mg/dL (7-18) H 26 mg/dL (7-18) H Creatinine 1.2 MG/DL (0.55-1.30) 1.2 MG/DL (0.55-1.30) Estimat Glomerular Filtration Rate 43.1 mL/min (>60) 43.1 mL/min (>60) Glucose Level 118 MG/DL (74-106) H 92 MG/DL (74-106) Lactic Acid Level 1.80 mmol/L (0.4-2.0) Calcium Level 8.6 MG/DL (8.5-10.1) 7.8 MG/DL (8.5-10.1) L Iron Level 193 ug/dL (50-175) H Total Iron Binding Capacity 221 ug/dL (250-450) L Percent Iron Saturation 87 % (15-50) H Unsaturated Iron Binding 28 ug/dL (112-346) L Ferritin 1694 NG/ML (8-388) H Total Bilirubin 0.8 MG/DL (0.2-1.0) 1.0 MG/DL (0.2-1.0) Aspartate Amino Transf (AST/SGOT) 12 U/L (15-37) L 25 U/L (15-37) Alanine Aminotransferase (ALT/SGPT) < 6 U/L (12-78) L 9 U/L (12-78) L Alkaline Phosphatase 47 U/L (46-116) 44 U/L (46-116) L Lactate Dehydrogenase 886 U/L (81-234) H Total Creatine Kinase 14 U/L (26-308) L Creatine Kinase MB < 0.5 NG/ML (0.0-3.6) Creatine Kinase MB Relative Index 3.5 Troponin I 0.009 ng/mL (0.000-0.056) C-Reactive Protein, Quantitative 4.5 mg/dL (0.00-0.90) H Pro-B-Type Natriuretic Peptide 5768 pg/mL (0-125) H Total Protein 6.2 G/DL (6.4-8.2) L 5.6 G/DL (6.4-8.2) L Albumin 3.2 G/DL (3.4-5.0) L 2.8 G/DL (3.4-5.0) L Globulin 3.0 g/dL 2.8 g/dL Albumin/Globulin Ratio 1.1 (1.0-2.7) 1.0 (1.0-2.7) Lipase 56 U/L (73-393) L Vitamin B12 Level 1180 PG/ML (193-986) H Folate 81.0 NG/ML (8.6-58.9) H White Blood Count 7.7 K/UL (4.8-10.8) 6.3 K/UL (4.8-10.8) Red Blood Count 1.08 M/UL (4.20-5.40) L 1.96 M/UL (4.20-5.40) L Hemoglobin 3.3 G/DL (12.0-16.0) *L 6.0 G/DL (12.0-16.0) Hematocrit 9.9 % (37.0-47.0) L 17.4 % (37.0-47.0) #L Mean Corpuscular Volume 92 FL (80-99) 89 FL (80-99) Mean Corpuscular Hemoglobin 30.6 PG (27.0-31.0) 30.4 PG (27.0-31.0) Mean Corpuscular Hemoglobin Concent 33.2 G/DL (32.0-36.0) 34.2 G/DL (32.0-36.0) Red Cell Distribution Width 27.9 % (11.6-14.8) H 19.5 % (11.6-14.8) H Platelet Count 228 K/UL (150-450) 168 K/UL (150-450) Mean Platelet Volume 14.1 FL (6.5-10.1) H 12.1 FL (6.5-10.1) H Neutrophils (%) (Auto) % (45.0-75.0) % (45.0-75.0) Lymphocytes (%) (Auto) % (20.0-45.0) % (20.0-45.0) Monocytes (%) (Auto) % (1.0-10.0) % (1.0-10.0) Eosinophils (%) (Auto) % (0.0-3.0) % (0.0-3.0) Basophils (%) (Auto) % (0.0-2.0) % (0.0-2.0) Neutrophils % (Manual) 75 % (45-75) 87 % (45-75) H Lymphocytes % (Manual) 20 % (20-45) 7 % (20-45) L Monocytes % (Manual) 3 % (1-10) 2 % (1-10) Eosinophils % (Manual) 0 % (0-3) 0 % (0-3) Basophils % (Manual) 2 % (0-2) 0 % (0-2) Band Neutrophils 0 % (0-8) 4 % (0-8) Platelet Estimate Adequate Adequate Platelet Morphology Normal Normal Hypochromasia 3+ Anisocytosis 2+ 2+ Urine Color Yellow Urine Appearance Clear Urine pH 8 (4.5-8.0) Urine Specific [place] 1.010 (1.005-1.035) Urine Protein 2+ (NEGATIVE) H Urine Glucose (UA) Negative (NEGATIVE) Urine Ketones Negative (NEGATIVE) Urine Blood Negative (NEGATIVE) Urine Nitrite Negative (NEGATIVE) Urine Bilirubin Negative (NEGATIVE) Urine Urobilinogen Normal MG/DL (0.0-1.0) Urine Leukocyte Esterase 1+ (NEGATIVE) H Urine RBC 0-2 /HPF (0 - 2) Urine WBC 2-4 /HPF (0 - 2) Urine Squamous Epithelial Cells Few /LPF (NONE/OCC) Urine Bacteria Few /HPF (NONE) Differential Total Cells Counted 100 Nucleated Red Blood Cells 1 /100 WBC Carcinoembryonic Antigen Pending Thyroid Stimulating Hormone (TSH) 3.176 uiU/mL (0.358-3.740) Microbiology Date/Time Source Procedure Growth Status 12/11/19 15:55 Nasopharynx SARS-CoV-2 RdRp Gene Assay - Final Complete Height (Feet): 5 Height (Inches): 6.00 Weight (Pounds): 110 Medications Current Medications Medications (Trade) Dose Ordered Sig/Escobar Route PRN Reason Start Time Stop Time Status Last Admin Dose Admin Acetaminophen (Tylenol) 650 mg Q4H PRN ORAL fever 12/11/19 18:45 01/10/20 18:44 Amiodarone HCl (Cordarone) 200 mg DAILY ORAL 12/12/19 09:00 03/11/20 08:59 Dextrose (Dextrose 50%) 25 ml Q30M PRN IV Hypoglycemia 12/11/19 18:45 03/10/20 18:44 Dextrose (Dextrose 50%) 50 ml Q30M PRN IV Hypoglycemia 12/11/19 18:45 03/10/20 18:44 Gabapentin (Neurontin) 300 mg THREE TIMES A DAY ORAL 12/12/19 09:00 01/11/20 08:59 Metoprolol Tartrate (Lopressor) 50 mg EVERY 12 HOURS ORAL 12/11/19 21:00 03/10/20 20:59 Ondansetron HCl (Zofran) 4 mg Q6H PRN IVP Nausea & Vomiting 12/11/19 18:45 01/10/20 18:44 Polyethylene Glycol (Miralax) 17 gm HSPRN PRN ORAL Constipation 12/11/19 18:45 01/10/20 18:44 Zolpidem Tartrate (Ambien) 5 mg HSPRN PRN ORAL Insomnia 12/11/19 18:45 12/18/19 18:44 Assessment/Plan Problem List: (1) Severe anemia ICD Codes: D64.9 - Anemia, unspecified SNOMED: 589828649 (2) Myelofibrosis ICD Codes: D75.81 - Myelofibrosis SNOMED: 15651847 (3) COPD (chronic obstructive pulmonary disease) ICD Codes: J44.9 - Chronic obstructive pulmonary disease, unspecified SNOMED: 53429501 (4) Paroxysmal A-fib ICD Codes: I48.0 - Paroxysmal atrial fibrillation SNOMED: 043271573 (5) Pacemaker ICD Codes: Z95.0 - Presence of cardiac pacemaker SNOMED: 003421336 (6) Protein-calorie malnutrition, severe ICD Codes: E43 - Unspecified severe protein-calorie malnutrition SNOMED: 502447677, 545052831, 124745945 (7) KELVIN (obstructive sleep apnea) ICD Codes: G47.33 - Obstructive sleep apnea (adult) (pediatric) SNOMED: 83595002 (8) CAD (coronary artery disease) ICD Codes: I25.10 - Atherosclerotic heart disease of [place] coronary artery without angina pectoris SNOMED: 30763711 (9) JAK2 V617F mutation ICD Codes: Z15.89 - Genetic susceptibility to other disease SNOMED: 75238869 Assessment/Plan: prbc prn, pt received 2 units of prbc last night, will transfuse two more telemetry bed symptomatic treatment titrate fio2 to sat of 92% monitor heart rate check the pace maker titrate cardiac meds. Kelly Mejia MD Dec 12, 2019 09:15
--- NOTE | 2019-12-12 09:18 | General Progress Note ---
Advance Care Planning Advance Care Planning Advance Care Planning Date of Discussion: A [id number] discussion patient with regarding the her advanced care planning took place during this hospitalization on the above date. The discussion included the explanation and discussion of advance directives and associated forms/documents, as well as the patient's current code status. We also discussed at length the patient's medical conditions (both acute and chronic), general prognosis, treatment options, and goals of care. The following summarizes the discussion: Advance Care Planning/Goals of Care: - Will attempt to fill out an AD and/or POLST with the patient prior to discharge, if not already completed - Continue current evaluation and management of any acute and chronic medical issues - Will continue to support the patient/family - Will continue to discuss both short- and long-term goals of care DPOA-HC/Surrogate Decision Maker: None currently appointed Code Status: Full Code Advanced Care Planning Forms/Documents Completed: Deferred until later encounter/visit A total of less than 30 minutes was spent on this discussion, including counseling, answering questions, and completing, if any, pertinent advanced care planning forms/documents. Time of note may not reflect time of encounter. MD Nguyễn Mckeon Payam MD Dec 12, 2019 09:18
--- NOTE | 2019-12-12 10:45 | History and Physical Report ---
DATE OF ADMISSION: 12/11/2019 CHIEF COMPLAINT: Weakness, fatigue, fever. HISTORY OF PRESENT ILLNESS: This 79-year-old very unfortunate female with past medical history significant for chronic atrial fibrillation, polycythemia vera, history of CVA with TIA, obstructive sleep apnea, coronary artery disease, dyslipidemia, congestive heart failure, right hemothorax in June 2019, sick sinus syndrome status post pacemaker, total abdominal hysterectomy, history of video-assisted thoracostomy exploration surgery on July 02, 2019, as well as history of JAK2 mutation, myelofibrosis, and myelodysplasia, who presented to the emergency department complaining about fatigue, weakness, as well as fever. The patient has become very debilitated and, weak, was not able to stay at home with failure to thrive. Shortly after initial evaluation in the emergency department, the patient was found to have profound anemia with a hemoglobin of 3.3 and subsequently the patient was admitted to the hospital for transfusion and further workup. Shortly after initial evaluation in the emergency department, the patient was admitted to the hospital with profound anemia, most likely secondary to the myeloproliferative disorder and myelofibrosis. PAST MEDICAL HISTORY/PAST SURGICAL HISTORY: As above, history of chronic atrial fibrillation, polycythemia vera, CVA with TIA, obstructive sleep apnea, coronary artery disease, dyslipidemia, congestive heart failure, right hemothorax in June 2019, status post of video-assisted thoracostomy exploration and surgery on July 02, 2019, sick sinus syndrome status post pacemaker, total abdominal hysterectomy, JAK2 mutation, history of COPD, myelofibrosis, and peripheral neuropathy. MEDICATIONS: At home significant for amiodarone 200 mg daily, Lasix 20 mg daily, gabapentin 300 mg three times a day, metoprolol 50 mg twice a day, and digoxin 0.125 mg daily. She used to be on hydroxyurea 500 mg daily, which was stopped. ALLERGIES: No known drug allergies. SOCIAL HISTORY: The patient lives at home with her niece, very supportive family. Her son is very involved with her care. FAMILY HISTORY: Noncontributory. REVIEW OF SYSTEMS: Mostly as above, denies any dysuria, frequency, or hematuria. Denies any hemoptysis or hematochezia. Complained about weakness and fatigue. Denies any loss of consciousness. Denies any fall or head trauma. Denies any suicidal or homicidal ideation. Denies any double vision. PHYSICAL EXAMINATION: VITAL SIGNS: On admission, temperature 99.9, pulse of 83, respirations 17, blood pressure 101/60. GENERAL: The patient is awake and responsive, very pale, very chronically ill-appearing, cachectic. HEAD AND NECK: Pupils are equal and reactive to light. Extraocular movements are intact. Neck was supple. No JVD. LUNGS: Good air entry. No wheezing or rales. Decreased in bases. HEART: S1, S2. Regular rhythm. No murmur or gallops. ABDOMEN: Soft, nondistended, and nontender. Positive bowel sounds. EXTREMITIES: No cyanosis, clubbing, or edema. NEUROLOGIC: Cranial nerves II through XII grossly intact. The patient moving all the extremities. Gait was not assessed due to the patient's status. RECTAL: Refused and deferred. GENITOURINARY: Refused and deferred. PSYCHIATRIC: Mood and affect is intact. LABORATORY DATA: On admission from the emergency department, WBC of 7.7, hemoglobin of 3.3, hematocrit 9.9, platelets 228,000. ESR is 167. count is 0.6. Sodium 141, potassium 4.8, chloride 107, bicarb 26, BUN 29, creatinine 1.2. GFR is 43. Glucose is 118. Ferritin is 1694. AST of 12, ALT of less than 6. Lactic dehydrogenase is 521. ProBNP of 5768. CRP is 4.5. Albumin is 3.2. First troponin 0.009. PT of 13, INR 1.3, PTT of 24. D-dimer is 1.45. Chest x-ray, chronic-appearing interstitial prominence, hazy mostly upper lobe parenchymal opacity, bilateral may reflect mild pulmonary edema. Correlation with clinical finding. ASSESSMENT: 1. Severe anemia, most likely secondary to myelodysplastic syndrome and myelofibrosis. 2. Hypotension, possible due to dehydration as well as profound anemia; however, cannot rule out underlying sepsis or dehydration. 3. Chronic atrial fibrillation. 4. History of polycythemia vera. 5. History of JAK2 mutation. 6. Myelofibrosis and myelodysplasia. 7. Hypertension. 8. Coronary artery disease. 9. Dyslipidemia. 10. Congestive heart failure, chronic. 11. History of right hemothorax, status post of video-assisted thoracostomy exploration and surgery on 07/02/2019. 12. Sick sinus syndrome, status post pacemaker. 13. Failure to thrive. 14. Severe protein-calorie malnutrition. PLAN: Admit the patient to step-down. We will follow up with blood transfusion tonight two units. Monitor laboratory in the morning. Discussed case with Dr. Mejia, Pulmonary Critical Care, as well as Dr. River Freitas from Cardiology Electrophysiology. Code status at this time is Full Code, discussed with the patient. DVT prophylaxis, heparin subcutaneous. We will monitor laboratory closely. Antonio Adrian M.D. DR: ДМИТРИЙ JOB#: [id number] CC:
[2019-12-12 12:00] VITALS: BP 100/58
[2019-12-12] MEDS ORDERED: Vancomycin 1.25gm/250ml Premix IVPB ONE (12:00)
[2019-12-12] MEDS: Cefepime HCl 1 GM in D5W 55 ML IVPB SCH (12:41)
--- NOTE | 2019-12-12 15:49 | Cardiac Electrophysiology PN ---
Subjective Subjective [id number] Objective Last 24 Hour Vital Signs Date Time Temp Pulse Resp B/P (MAP) Pulse Ox O2 Delivery O2 Flow Rate FiO2 12/12/19 12:00 Room Air 12/12/19 12:00 72 12/12/19 12:00 97.9 62 100/58 (72) 12/12/19 09:11 72 125/67 12/12/19 08:00 Room Air 12/12/19 08:00 97.2 74 125/67 (86) 12/12/19 08:00 72 12/12/19 04:00 Room Air 12/12/19 04:00 74 12/12/19 04:00 98.2 74 105/60 (75) 12/12/19 00:00 98.4 80 99/57 (71) 12/12/19 00:00 80 12/12/19 00:00 Room Air 12/11/19 21:00 83 97/52 12/11/19 20:08 Room Air 12/11/19 20:00 97.7 83 97/52 (67) 12/11/19 19:54 83 12/11/19 18:58 99.9 76 16 94/46 97 Room Air 80 12/11/19 17:07 99.9 80 17 86/48 98 Room Air 80 12/11/19 16:30 99.9 80 17 90/58 98 Room Air 80 Intake and Output 12/11/19 12/12/19 19:00 07:00 Intake Total 500 ml Output Total 400 ml Balance 100 ml Intake Blood Product 500 ml Output Urine Total 400 ml # Voids 1 Laboratory Tests Test 12/11/19 15:55 12/11/19 16:50 12/11/19 17:25 12/12/19 06:35 Erythrocyte Sedimentation Rate 167 MM/HR (0-30) H Reticulocyte Count 0.6 % (0.5-2.0) Prothrombin Time 13.6 SEC (9.30-11.50) H 14.1 SEC (9.30-11.50) H Prothromb Time International Ratio 1.3 (0.9-1.1) H 1.3 (0.9-1.1) H Activated Partial Thromboplast Time 24 SEC (23-33) 31 SEC (23-33) D-Dimer 1.45 mg/L FEU (0.00-0.49) H Sodium Level 141 MMOL/L (136-145) 142 MMOL/L (136-145) Potassium Level 4.8 MMOL/L (3.5-5.1) 4.3 MMOL/L (3.5-5.1) Chloride Level 107 MMOL/L (98-107) 111 MMOL/L (98-107) H Carbon Dioxide Level 26 MMOL/L (21-32) 23 MMOL/L (21-32) Anion Gap 8 mmol/L (5-15) 8 mmol/L (5-15) Blood Urea Nitrogen 29 mg/dL (7-18) H 26 mg/dL (7-18) H Creatinine 1.2 MG/DL (0.55-1.30) 1.2 MG/DL (0.55-1.30) Estimat Glomerular Filtration Rate 43.1 mL/min (>60) 43.1 mL/min (>60) Glucose Level 118 MG/DL (74-106) H 92 MG/DL (74-106) Lactic Acid Level 1.80 mmol/L (0.4-2.0) Calcium Level 8.6 MG/DL (8.5-10.1) 7.8 MG/DL (8.5-10.1) L Iron Level 193 ug/dL (50-175) H Total Iron Binding Capacity 221 ug/dL (250-450) L Percent Iron Saturation 87 % (15-50) H Unsaturated Iron Binding 28 ug/dL (112-346) L Ferritin 1694 NG/ML (8-388) H Total Bilirubin 0.8 MG/DL (0.2-1.0) 1.0 MG/DL (0.2-1.0) Aspartate Amino Transf (AST/SGOT) 12 U/L (15-37) L 25 U/L (15-37) Alanine Aminotransferase (ALT/SGPT) < 6 U/L (12-78) L 9 U/L (12-78) L Alkaline Phosphatase 47 U/L (46-116) 44 U/L (46-116) L Lactate Dehydrogenase 886 U/L (81-234) H Total Creatine Kinase 14 U/L (26-308) L Creatine Kinase MB < 0.5 NG/ML (0.0-3.6) Creatine Kinase MB Relative Index 3.5 Troponin I 0.009 ng/mL (0.000-0.056) C-Reactive Protein, Quantitative 4.5 mg/dL (0.00-0.90) H Pro-B-Type Natriuretic Peptide 5768 pg/mL (0-125) H Total Protein 6.2 G/DL (6.4-8.2) L 5.6 G/DL (6.4-8.2) L Albumin 3.2 G/DL (3.4-5.0) L 2.8 G/DL (3.4-5.0) L Globulin 3.0 g/dL 2.8 g/dL Albumin/Globulin Ratio 1.1 (1.0-2.7) 1.0 (1.0-2.7) Lipase 56 U/L (73-393) L Vitamin B12 Level 1180 PG/ML (193-986) H Folate 81.0 NG/ML (8.6-58.9) H White Blood Count 7.7 K/UL (4.8-10.8) 6.3 K/UL (4.8-10.8) Red Blood Count 1.08 M/UL (4.20-5.40) L 1.96 M/UL (4.20-5.40) L Hemoglobin 3.3 G/DL (12.0-16.0) *L 6.0 G/DL (12.0-16.0) Hematocrit 9.9 % (37.0-47.0) L 17.4 % (37.0-47.0) #L Mean Corpuscular Volume 92 FL (80-99) 89 FL (80-99) Mean Corpuscular Hemoglobin 30.6 PG (27.0-31.0) 30.4 PG (27.0-31.0) Mean Corpuscular Hemoglobin Concent 33.2 G/DL (32.0-36.0) 34.2 G/DL (32.0-36.0) Red Cell Distribution Width 27.9 % (11.6-14.8) H 19.5 % (11.6-14.8) H Platelet Count 228 K/UL (150-450) 168 K/UL (150-450) Mean Platelet Volume 14.1 FL (6.5-10.1) H 12.1 FL (6.5-10.1) H Neutrophils (%) (Auto) % (45.0-75.0) % (45.0-75.0) Lymphocytes (%) (Auto) % (20.0-45.0) % (20.0-45.0) Monocytes (%) (Auto) % (1.0-10.0) % (1.0-10.0) Eosinophils (%) (Auto) % (0.0-3.0) % (0.0-3.0) Basophils (%) (Auto) % (0.0-2.0) % (0.0-2.0) Neutrophils % (Manual) 75 % (45-75) 87 % (45-75) H Lymphocytes % (Manual) 20 % (20-45) 7 % (20-45) L Monocytes % (Manual) 3 % (1-10) 2 % (1-10) Eosinophils % (Manual) 0 % (0-3) 0 % (0-3) Basophils % (Manual) 2 % (0-2) 0 % (0-2) Band Neutrophils 0 % (0-8) 4 % (0-8) Platelet Estimate Adequate Adequate Platelet Morphology Normal Normal Hypochromasia 3+ Anisocytosis 2+ 2+ Urine Color Yellow Urine Appearance Clear Urine pH 8 (4.5-8.0) Urine Specific [place] 1.010 (1.005-1.035) Urine Protein 2+ (NEGATIVE) H Urine Glucose (UA) Negative (NEGATIVE) Urine Ketones Negative (NEGATIVE) Urine Blood Negative (NEGATIVE) Urine Nitrite Negative (NEGATIVE) Urine Bilirubin Negative (NEGATIVE) Urine Urobilinogen Normal MG/DL (0.0-1.0) Urine Leukocyte Esterase 1+ (NEGATIVE) H Urine RBC 0-2 /HPF (0 - 2) Urine WBC 2-4 /HPF (0 - 2) Urine Squamous Epithelial Cells Few /LPF (NONE/OCC) Urine Bacteria Few /HPF (NONE) Differential Total Cells Counted 100 Nucleated Red Blood Cells 1 /100 WBC Carcinoembryonic Antigen Pending Thyroid Stimulating Hormone (TSH) 3.176 uiU/mL (0.358-3.740) Microbiology Date/Time Source Procedure Growth Status 12/11/19 15:55 Nasopharynx SARS-CoV-2 RdRp Gene Assay - Final Complete River Freitas MD Dec 12, 2019 15:49
[2019-12-12 16:00] VITALS: BP 105/65
--- NOTE | 2019-12-12 17:03 | Internal Med Progress Note ---
Subjective Date of Service: Dec 12, 2019 Physician Name GraceRoshan Attending Physician Antonio Adrian MD Current Medications Medications (Trade) Dose Ordered Sig/Escobar Route PRN Reason Start Time Stop Time Status Last Admin Dose Admin Acetaminophen (Tylenol) 650 mg Q4H PRN ORAL fever 12/11/19 18:45 01/10/20 18:44 Amiodarone HCl (Cordarone) 200 mg DAILY ORAL 12/12/19 09:00 03/11/20 08:59 12/12/19 09:11 Cefepime HCl 1 gm/ Dextrose 55 ml @ 110 mls/hr Q24H IVPB 12/12/19 13:00 12/19/19 12:59 12/12/19 12:41 Dextrose (Dextrose 50%) 25 ml Q30M PRN IV Hypoglycemia 12/11/19 18:45 03/10/20 18:44 Dextrose (Dextrose 50%) 50 ml Q30M PRN IV Hypoglycemia 12/11/19 18:45 03/10/20 18:44 Gabapentin (Neurontin) 300 mg THREE TIMES A DAY ORAL 12/12/19 09:00 01/11/20 08:59 12/12/19 12:40 Metoprolol Tartrate (Lopressor) 50 mg EVERY 12 HOURS ORAL 12/11/19 21:00 03/10/20 20:59 12/12/19 09:11 Ondansetron HCl (Zofran) 4 mg Q6H PRN IVP Nausea & Vomiting 12/11/19 18:45 01/10/20 18:44 Polyethylene Glycol (Miralax) 17 gm HSPRN PRN ORAL Constipation 12/11/19 18:45 01/10/20 18:44 Vancomycin HCl (Vanco pharmacy to dose) 1 ea DAILY PRN MISC Per rx protocol 12/12/19 10:45 01/11/20 10:44 Vancomycin HCl 1 gm/Dextrose 275 ml @ 183.708 mls/hr Q24H IVPB 12/13/19 12:00 12/18/19 11:59 Zolpidem Tartrate (Ambien) 5 mg HSPRN PRN ORAL Insomnia 12/11/19 18:45 12/18/19 18:44 Allergies: Coded Allergies: No Known Allergies (Unverified , 04/24/18) ROS Limited/Unobtainable: Yes Subjective 79 YO F with history of myelodysplasia, admitted with general weakness and failure to thrive. Now severe anemia. Cover for Int Med-DR Adrian Objective Last Vital Signs Date Time Temp Pulse Resp B/P (MAP) Pulse Ox O2 Delivery O2 Flow Rate FiO2 12/12/19 12:00 Room Air 12/12/19 12:00 72 12/12/19 12:00 97.9 100/58 (72) 12/11/19 18:58 16 97 Laboratory Tests Test 12/11/19 17:25 12/12/19 06:35 Urine Color Yellow Urine Appearance Clear Urine pH 8 (4.5-8.0) Urine Specific [place] 1.010 (1.005-1.035) Urine Protein 2+ (NEGATIVE) H Urine Glucose (UA) Negative (NEGATIVE) Urine Ketones Negative (NEGATIVE) Urine Blood Negative (NEGATIVE) Urine Nitrite Negative (NEGATIVE) Urine Bilirubin Negative (NEGATIVE) Urine Urobilinogen Normal MG/DL (0.0-1.0) Urine Leukocyte Esterase 1+ (NEGATIVE) H Urine RBC 0-2 /HPF (0 - 2) Urine WBC 2-4 /HPF (0 - 2) Urine Squamous Epithelial Cells Few /LPF (NONE/OCC) Urine Bacteria Few /HPF (NONE) White Blood Count 6.3 K/UL (4.8-10.8) Red Blood Count 1.96 M/UL (4.20-5.40) L Hemoglobin 6.0 G/DL (12.0-16.0) Hematocrit 17.4 % (37.0-47.0) #L Mean Corpuscular Volume 89 FL (80-99) Mean Corpuscular Hemoglobin 30.4 PG (27.0-31.0) Mean Corpuscular Hemoglobin Concent 34.2 G/DL (32.0-36.0) Red Cell Distribution Width 19.5 % (11.6-14.8) H Platelet Count 168 K/UL (150-450) Mean Platelet Volume 12.1 FL (6.5-10.1) H Neutrophils (%) (Auto) % (45.0-75.0) Lymphocytes (%) (Auto) % (20.0-45.0) Monocytes (%) (Auto) % (1.0-10.0) Eosinophils (%) (Auto) % (0.0-3.0) Basophils (%) (Auto) % (0.0-2.0) Differential Total Cells Counted 100 Neutrophils % (Manual) 87 % (45-75) H Lymphocytes % (Manual) 7 % (20-45) L Monocytes % (Manual) 2 % (1-10) Eosinophils % (Manual) 0 % (0-3) Basophils % (Manual) 0 % (0-2) Band Neutrophils 4 % (0-8) Nucleated Red Blood Cells 1 /100 WBC Platelet Estimate Adequate Platelet Morphology Normal Anisocytosis 2+ Prothrombin Time 14.1 SEC (9.30-11.50) H Prothromb Time International Ratio 1.3 (0.9-1.1) H Activated Partial Thromboplast Time 31 SEC (23-33) Sodium Level 142 MMOL/L (136-145) Potassium Level 4.3 MMOL/L (3.5-5.1) Chloride Level 111 MMOL/L (98-107) H Carbon Dioxide Level 23 MMOL/L (21-32) Anion Gap 8 mmol/L (5-15) Blood Urea Nitrogen 26 mg/dL (7-18) H Creatinine 1.2 MG/DL (0.55-1.30) Estimat Glomerular Filtration Rate 43.1 mL/min (>60) Glucose Level 92 MG/DL (74-106) Calcium Level 7.8 MG/DL (8.5-10.1) L Total Bilirubin 1.0 MG/DL (0.2-1.0) Aspartate Amino Transf (AST/SGOT) 25 U/L (15-37) Alanine Aminotransferase (ALT/SGPT) 9 U/L (12-78) L Alkaline Phosphatase 44 U/L (46-116) L Total Protein 5.6 G/DL (6.4-8.2) L Albumin 2.8 G/DL (3.4-5.0) L Globulin 2.8 g/dL Albumin/Globulin Ratio 1.0 (1.0-2.7) Carcinoembryonic Antigen Pending Thyroid Stimulating Hormone (TSH) 3.176 uiU/mL (0.358-3.740) Microbiology Date/Time Source Procedure Growth Status 12/11/19 15:55 Nasopharynx SARS-CoV-2 RdRp Gene Assay - Final Complete Intake and Output 12/11/19 12/12/19 19:00 07:00 Intake Total 500 ml Output Total 400 ml Balance 100 ml Intake Blood Product 500 ml Output Urine Total 400 ml # Voids 1 Objective PHYSICAL EXAMINATION:. GENERAL: The patient is awake and responsive, very pale, very chronically ill-appearing, cachectic. HEAD AND NECK: Pupils are equal and reactive to light. Extraocular movements are intact. Neck was supple. No JVD. LUNGS: Good air entry. No wheezing or rales. Decreased in bases. HEART: S1, S2. Regular rhythm. No murmur or gallops. ABDOMEN: Soft, nondistended, and nontender. Positive bowel sounds. EXTREMITIES: No cyanosis, clubbing, or edema. NEUROLOGIC: Cranial nerves II through XII grossly intact. The patient moving all the extremities. Gait was not assessed due to the patient's status. RECTAL: Refused and deferred. GENITOURINARY: Refused and deferred. PSYCHIATRIC: Mood and affect is intact. Roshan Edwards MD Dec 12, 2019 17:03
--- NOTE | 2019-12-12 17:06 | Internal Med Progress Note ---
Subjective Date of Service: Dec 12, 2019 Physician Name GraceRoshan Attending Physician Antonio Adrian MD Current Medications Medications (Trade) Dose Ordered Sig/Escobar Route PRN Reason Start Time Stop Time Status Last Admin Dose Admin Acetaminophen (Tylenol) 650 mg Q4H PRN ORAL fever 12/11/19 18:45 01/10/20 18:44 Amiodarone HCl (Cordarone) 200 mg DAILY ORAL 12/12/19 09:00 03/11/20 08:59 12/12/19 09:11 Cefepime HCl 1 gm/ Dextrose 55 ml @ 110 mls/hr Q24H IVPB 12/12/19 13:00 12/19/19 12:59 12/12/19 12:41 Dextrose (Dextrose 50%) 25 ml Q30M PRN IV Hypoglycemia 12/11/19 18:45 03/10/20 18:44 Dextrose (Dextrose 50%) 50 ml Q30M PRN IV Hypoglycemia 12/11/19 18:45 03/10/20 18:44 Gabapentin (Neurontin) 300 mg THREE TIMES A DAY ORAL 12/12/19 09:00 01/11/20 08:59 12/12/19 12:40 Metoprolol Tartrate (Lopressor) 50 mg EVERY 12 HOURS ORAL 12/11/19 21:00 03/10/20 20:59 12/12/19 09:11 Ondansetron HCl (Zofran) 4 mg Q6H PRN IVP Nausea & Vomiting 12/11/19 18:45 01/10/20 18:44 Polyethylene Glycol (Miralax) 17 gm HSPRN PRN ORAL Constipation 12/11/19 18:45 01/10/20 18:44 Vancomycin HCl (Vanco pharmacy to dose) 1 ea DAILY PRN MISC Per rx protocol 12/12/19 10:45 01/11/20 10:44 Vancomycin HCl 1 gm/Dextrose 275 ml @ 183.708 mls/hr Q24H IVPB 12/13/19 12:00 12/18/19 11:59 Zolpidem Tartrate (Ambien) 5 mg HSPRN PRN ORAL Insomnia 12/11/19 18:45 12/18/19 18:44 Allergies: Coded Allergies: No Known Allergies (Unverified , 04/24/18) ROS Limited/Unobtainable: Yes Subjective 79 YO F with history of myelodysplasia, admitted with general weakness and failure to thrive. Now severe anemia. Cover for Int Med-DR Adrian. Step down unit Objective Last Vital Signs Date Time Temp Pulse Resp B/P (MAP) Pulse Ox O2 Delivery O2 Flow Rate FiO2 12/12/19 12:00 Room Air 12/12/19 12:00 72 12/12/19 12:00 97.9 100/58 (72) 12/11/19 18:58 16 97 Laboratory Tests Test 12/11/19 17:25 12/12/19 06:35 Urine Color Yellow Urine Appearance Clear Urine pH 8 (4.5-8.0) Urine Specific [place] 1.010 (1.005-1.035) Urine Protein 2+ (NEGATIVE) H Urine Glucose (UA) Negative (NEGATIVE) Urine Ketones Negative (NEGATIVE) Urine Blood Negative (NEGATIVE) Urine Nitrite Negative (NEGATIVE) Urine Bilirubin Negative (NEGATIVE) Urine Urobilinogen Normal MG/DL (0.0-1.0) Urine Leukocyte Esterase 1+ (NEGATIVE) H Urine RBC 0-2 /HPF (0 - 2) Urine WBC 2-4 /HPF (0 - 2) Urine Squamous Epithelial Cells Few /LPF (NONE/OCC) Urine Bacteria Few /HPF (NONE) White Blood Count 6.3 K/UL (4.8-10.8) Red Blood Count 1.96 M/UL (4.20-5.40) L Hemoglobin 6.0 G/DL (12.0-16.0) Hematocrit 17.4 % (37.0-47.0) #L Mean Corpuscular Volume 89 FL (80-99) Mean Corpuscular Hemoglobin 30.4 PG (27.0-31.0) Mean Corpuscular Hemoglobin Concent 34.2 G/DL (32.0-36.0) Red Cell Distribution Width 19.5 % (11.6-14.8) H Platelet Count 168 K/UL (150-450) Mean Platelet Volume 12.1 FL (6.5-10.1) H Neutrophils (%) (Auto) % (45.0-75.0) Lymphocytes (%) (Auto) % (20.0-45.0) Monocytes (%) (Auto) % (1.0-10.0) Eosinophils (%) (Auto) % (0.0-3.0) Basophils (%) (Auto) % (0.0-2.0) Differential Total Cells Counted 100 Neutrophils % (Manual) 87 % (45-75) H Lymphocytes % (Manual) 7 % (20-45) L Monocytes % (Manual) 2 % (1-10) Eosinophils % (Manual) 0 % (0-3) Basophils % (Manual) 0 % (0-2) Band Neutrophils 4 % (0-8) Nucleated Red Blood Cells 1 /100 WBC Platelet Estimate Adequate Platelet Morphology Normal Anisocytosis 2+ Prothrombin Time 14.1 SEC (9.30-11.50) H Prothromb Time International Ratio 1.3 (0.9-1.1) H Activated Partial Thromboplast Time 31 SEC (23-33) Sodium Level 142 MMOL/L (136-145) Potassium Level 4.3 MMOL/L (3.5-5.1) Chloride Level 111 MMOL/L (98-107) H Carbon Dioxide Level 23 MMOL/L (21-32) Anion Gap 8 mmol/L (5-15) Blood Urea Nitrogen 26 mg/dL (7-18) H Creatinine 1.2 MG/DL (0.55-1.30) Estimat Glomerular Filtration Rate 43.1 mL/min (>60) Glucose Level 92 MG/DL (74-106) Calcium Level 7.8 MG/DL (8.5-10.1) L Total Bilirubin 1.0 MG/DL (0.2-1.0) Aspartate Amino Transf (AST/SGOT) 25 U/L (15-37) Alanine Aminotransferase (ALT/SGPT) 9 U/L (12-78) L Alkaline Phosphatase 44 U/L (46-116) L Total Protein 5.6 G/DL (6.4-8.2) L Albumin 2.8 G/DL (3.4-5.0) L Globulin 2.8 g/dL Albumin/Globulin Ratio 1.0 (1.0-2.7) Carcinoembryonic Antigen Pending Thyroid Stimulating Hormone (TSH) 3.176 uiU/mL (0.358-3.740) Microbiology Date/Time Source Procedure Growth Status 12/11/19 15:55 Nasopharynx SARS-CoV-2 RdRp Gene Assay - Final Complete Intake and Output 12/11/19 12/12/19 19:00 07:00 Intake Total 500 ml Output Total 400 ml Balance 100 ml Intake Blood Product 500 ml Output Urine Total 400 ml # Voids 1 Objective PHYSICAL EXAMINATION:. GENERAL: The patient is awake and responsive, very pale, very chronically ill-appearing, cachectic. HEAD AND NECK: Pupils are equal and reactive to light. Extraocular movements are intact. Neck was supple. No JVD. LUNGS: Good air entry. No wheezing or rales. Decreased in bases. HEART: S1, S2. Regular rhythm. No murmur or gallops. ABDOMEN: Soft, nondistended, and nontender. Positive bowel sounds. EXTREMITIES: No cyanosis, clubbing, or edema. NEUROLOGIC: Cranial nerves II through XII grossly intact. The patient moving all the extremities. Gait was not assessed due to the patient's status. RECTAL: Refused and deferred. GENITOURINARY: Refused and deferred. PSYCHIATRIC: Mood and affect is intact. Assessment/Plan Assessment/Plan ASSESSMENT: 1. Severe anemia, most likely secondary to myelodysplastic syndrome and myelofibrosis. 2. Hypotension, possible due to dehydration as well as profound anemia; however, cannot rule out underlying sepsis or dehydration. 3. Chronic atrial fibrillation. 4. History of polycythemia vera. 5. History of JAK2 mutation. 6. Myelofibrosis and myelodysplasia. 7. Hypertension. 8. Coronary artery disease. 9. Dyslipidemia. 10. Congestive heart failure, chronic. 11. History of right hemothorax, status post of video-assisted thoracostomy exploration and surgery on 07/02/2019. 12. Sick sinus syndrome, status post pacemaker. 13. Failure to thrive. 14. Severe protein-calorie malnutrition. PLAN: 1. Admit the patient to step-down. 2. S/P transfusion two units PRBC. 3. Dr. Mejia=Pulmonary Critical Care 4. Dr. River Freitas = Cardiology Electrophysiology. 5. Code status at this time is Full Code, discussed with the patient. 6. DVT prophylaxis, heparin subcutaneous. Roshan Edwards MD Dec 12, 2019 17:06
[2019-12-12 20:00] VITALS: BP 106/64
--- NOTE | 2019-12-12 21:15 | Consultation ---
DATE OF CONSULTATION: 12/12/2019 CARDIOLOGY CONSULTATION REFERRING PHYSICIAN: Antonio Adrian M.D. REASON FOR CONSULTATION: Management of hypertension, congestive heart failure as well as evaluation of the patient's pacemaker. HISTORY OF PRESENT ILLNESS: The patient is an 79-year-old lady with history of hypertension, paroxysmal atrial fibrillation, history of CVA, TIA as well as congestive heart failure and history of sick sinus syndrome, underwent pacemaker implantation by me in 2010 and generator change in 2018. The patient also has history of video-assisted thoracoscopic surgery on July 02, 2019 as well as history of myelofibrosis and myelodysplasia. The patient presented to the emergency room with fatigue and weakness and fever, but was noted to have hemoglobin of only 3.3. The patient received 2 units of blood transfusion and was admitted to the telemetry floor. The patient also required 2 more units of blood transfusion. REVIEW OF SYSTEMS: Negative other than what is mentioned in history of present illness. PAST MEDICAL HISTORY: As mentioned above. FAMILY HISTORY: Noncontributory. SOCIAL HISTORY: The patient does not smoke or drink alcohol. Lives at home with her niece with a very supportive family, and her son is very involved in her care. ALLERGIES: No known drug allergies. MEDICATIONS: Per reconciliation include amiodarone, metoprolol b.i.d., and digoxin 0.125 mg daily. PHYSICAL EXAMINATION: VITAL SIGNS: Shows blood pressure of 100/58, pulse is 62, respirations 18, temperature 97.9. HEAD AND NECK: Shows no JVD. LUNGS: Clear. CARDIOVASCULAR: Regular S1 and S2 with no gallop. ABDOMEN: Soft. EXTREMITIES: No pitting edema. LABORATORY AND DIAGNOSTIC DATA: Her labs show white count of 7.7, hemoglobin was 3.3, that improved to 6 after transfusion, and platelet count is 228. Sodium is 142, potassium 4.3, BUN of 23, creatinine 1.2, glucose of 92. Her troponin is negative. ASSESSMENT AND PLAN: 1. Weakness due to profound anemia with hemoglobin of 3. The patient has received 4 units of blood transfusion. The patient has myelofibrosis. On the previous admission also, the patient's hemoglobin was only 4 and received multiple units of blood transfusion. 2. Status post pacemaker in 2010 and generator change in 2018 by me with normal function. 3. Paroxysmal atrial fibrillation, in sinus rhythm on amiodarone 200 mg daily, metoprolol 50 mg b.i.d. and digoxin 0.125 mg daily, off anticoagulation for recurrent bleeding and profound anemia. 4. Hypertension, continue metoprolol. 5. History of polycythemia vera. 6. Myelofibrosis. 7. History of pulmonary hypertension. 8. History of hemothorax, status post VATS by . . Thank you very much Dr. Adrian for allowing me to participate in the care of this patient. Please do not hesitate to contact me for any questions regarding my evaluation. The case was discussed with nurse at the bedside. River Freitas M.D. DR: ZULEIMA JOB#: [id number] CC:
[2019-12-13] VITALS (7 sets, daily range): BP systolic 105–123; BP diastolic 61–67
[2019-12-13 06:54] LABS: ALBUMIN 2.8 G/DL (3.4-5.0); ALBUMIN/GLOBULIN RATIO 0.8 (1.0-2.7); CALCIUM 8.2 MG/DL (8.5-10.1); PHOSPHORUS 3.3 MG/DL (2.5-4.9); POTASSIUM 4.2 MMOL/L (3.5-5.1)
[2019-12-13 07:14] LABS: HEMATOCRIT 24.1 % (37.0-47.0); HEMOGLOBIN 8.2 G/DL (12.0-16.0); MEAN CORPUSCULAR VOLUME 89 FL (80-99); PLATELET COUNT 151 K/UL (150-450); RED BLOOD COUNT 2.71 M/UL (4.20-5.40); RED CELL DISTRIBUTION WIDTH 17.4 % (11.6-14.8); WHITE BLOOD COUNT 5.9 K/UL (4.8-10.8)
[2019-12-13] MEDS: Amiodarone 200mg tab ORAL SCH (08:08)
[2019-12-13] MEDS: Metoprolol Tartrate 50mg tab ORAL SCH ×2 (08:08→20:47)
--- NOTE | 2019-12-13 09:53 | Pulmonology Progress Note ---
Subjective ROS Limited/Unobtainable: No Constitutional: Reports: no symptoms HEENT: Repors: no symptoms Respiratory: Reports: no symptoms Allergies: Coded Allergies: No Known Allergies (Unverified , 04/24/18) Objective Last 24 Hour Vital Signs Date Time Temp Pulse Resp B/P (MAP) Pulse Ox O2 Delivery O2 Flow Rate FiO2 12/13/19 08:08 62 113/61 12/13/19 08:00 98.6 62 17 113/61 (78) 97 12/13/19 07:52 Nasal Cannula 2.0 12/13/19 07:39 62 12/13/19 07:35 96 Nasal Cannula 2.0 28 12/13/19 04:07 65 12/13/19 04:00 Room Air 12/13/19 04:00 98.0 60 18 116/64 (81) 94 12/13/19 00:00 Room Air 12/13/19 00:00 97.3 60 18 111/62 (78) 94 12/12/19 23:41 60 12/12/19 20:30 98 Nasal Cannula 4.0 36 12/12/19 20:00 Room Air 12/12/19 20:00 97.1 60 20 106/64 (78) 97 12/12/19 19:30 60 12/12/19 16:00 Room Air 12/12/19 16:00 60 12/12/19 16:00 97.9 60 20 105/65 (78) 95 12/12/19 12:00 Room Air 12/12/19 12:00 72 12/12/19 12:00 97.9 62 100/58 (72) Intake and Output 12/12/19 12/13/19 19:00 07:00 Intake Total 420 ml 120 ml Output Total 400 ml 550 ml Balance 20 ml -430 ml Intake Oral 420 ml 120 ml Output Urine Total 400 ml 550 ml General Appearance: cachetic HEENT: normocephalic, atraumatic Respiratory: chest wall non-tender, lungs clear Breasts: no masses Cardiovascular: normal peripheral pulses, normal rate, regular rhythm Abdomen: normal bowel sounds, soft, non tender, no organomegaly Genitourinary: normal external genitalia Extremities: no cyanosis Skin: no lesions Neurologic: lvn lpn II-XII grossly normal, no motor/sensory deficits, normal mood/affect Musculoskeletal: normal muscle bulk Microbiology Date/Time Source Procedure Growth Status 12/12/19 13:45 Indwelling Cath Urine Culture - Preliminary NO GROWTH AFTER 24 HOURS Resulted 12/11/19 15:55 Nasopharynx SARS-CoV-2 RdRp Gene Assay - Final Complete Laboratory Tests 12/13/19 05:20: Sodium Level 144, Potassium Level 4.2, Chloride Level 113H, Carbon Dioxide Level 22, Anion Gap 9, Blood Urea Nitrogen 27H, Creatinine 1.0, Estimat Glomerular Filtration Rate 53.2, Glucose Level 78, Calcium Level 8.2L, Phosphorus Level 3.3, Magnesium Level 2.2, Total Bilirubin 1.0, Aspartate Amino Transf (AST/SGOT) 18, Alanine Aminotransferase (ALT/SGPT) 13, Alkaline Phosphatase 40L, Troponin I 0.012, Pro-B-Type Natriuretic Peptide 47101A, Total Protein 6.1L, Albumin 2.8L, Globulin 3.3, Albumin/Globulin Ratio 0.8L 12/13/19 06:45: White Blood Count 5.9, Red Blood Count 2.71L, Hemoglobin 8.2#L, Hematocrit 24.1#L, Mean Corpuscular Volume 89, Mean Corpuscular Hemoglobin 30.4, Mean Corpuscular Hemoglobin Concent 34.2, Red Cell Distribution Width 17.4H, Platelet Count 151, Mean Platelet Volume 12.7H, Neutrophils (%) (Auto) , Lymphocytes (%) (Auto) , Monocytes (%) (Auto) , Eosinophils (%) (Auto) , Basophils (%) (Auto) , Neutrophils % (Manual) [Pending], Lymphocytes % (Manual) [Pending], Platelet Estimate [Pending], Platelet Morphology [Pending] Current Medications Medications (Trade) Dose Ordered Sig/Escobar Route PRN Reason Start Time Stop Time Status Last Admin Dose Admin Acetaminophen (Tylenol) 650 mg Q4H PRN ORAL fever 12/11/19 18:45 01/10/20 18:44 Amiodarone HCl (Cordarone) 200 mg DAILY ORAL 12/12/19 09:00 03/11/20 08:59 12/13/19 08:08 Cefepime HCl 1 gm/ Dextrose 55 ml @ 110 mls/hr Q24H IVPB 12/12/19 13:00 12/19/19 12:59 12/12/19 12:41 Dextrose (Dextrose 50%) 25 ml Q30M PRN IV Hypoglycemia 12/11/19 18:45 03/10/20 18:44 Dextrose (Dextrose 50%) 50 ml Q30M PRN IV Hypoglycemia 12/11/19 18:45 03/10/20 18:44 Gabapentin (Neurontin) 300 mg THREE TIMES A DAY ORAL 12/12/19 09:00 01/11/20 08:59 12/13/19 08:08 Metoprolol Tartrate (Lopressor) 50 mg EVERY 12 HOURS ORAL 12/11/19 21:00 03/10/20 20:59 12/12/19 09:11 Ondansetron HCl (Zofran) 4 mg Q6H PRN IVP Nausea & Vomiting 12/11/19 18:45 01/10/20 18:44 Polyethylene Glycol (Miralax) 17 gm HSPRN PRN ORAL Constipation 12/11/19 18:45 01/10/20 18:44 Vancomycin HCl (Vanco pharmacy to dose) 1 ea DAILY PRN MISC Per rx protocol 12/12/19 10:45 01/11/20 10:44 Vancomycin HCl 1 gm/Dextrose 275 ml @ 183.708 mls/hr Q24H IVPB 12/13/19 12:00 12/18/19 11:59 Zolpidem Tartrate (Ambien) 5 mg HSPRN PRN ORAL Insomnia 12/11/19 18:45 12/18/19 18:44 Assessment/Plan Problems: (1) Severe anemia (2) Myelofibrosis (3) COPD (chronic obstructive pulmonary disease) (4) Paroxysmal A-fib (5) Pacemaker (6) Protein-calorie malnutrition, severe (7) KELVIN (obstructive sleep apnea) (8) CAD (coronary artery disease) (9) JAK2 [id number] mutation Assessment/Plan prbc prn, pt received 4 units of prbc this admission check h/h in am telemetry bed symptomatic treatment titrate fio2 to sat of 92% monitor heart rate check the pace maker titrate cardiac meds. Kelly Mejia MD Dec 13, 2019 09:53
[2019-12-13] MEDS: Vancomycin 1gm/D5W 275ml IVPB SCH ×2 (11:23)
[2019-12-13] MEDS: Cefepime HCl 1 GM in D5W 55 ML IVPB SCH (13:17)
--- NOTE | 2019-12-13 14:41 | Internal Med Progress Note ---
Subjective Date of Service: Dec 13, 2019 Physician Name Roshan Edwards Attending Physician Antonio Adrian MD Current Medications Medications (Trade) Dose Ordered Sig/Escobar Route PRN Reason Start Time Stop Time Status Last Admin Dose Admin Acetaminophen (Tylenol) 650 mg Q4H PRN ORAL fever 12/11/19 18:45 01/10/20 18:44 Amiodarone HCl (Cordarone) 200 mg DAILY ORAL 12/12/19 09:00 03/11/20 08:59 12/13/19 08:08 Cefepime HCl 1 gm/ Dextrose 55 ml @ 110 mls/hr Q24H IVPB 12/12/19 13:00 12/19/19 12:59 12/13/19 13:17 Dextrose (Dextrose 50%) 25 ml Q30M PRN IV Hypoglycemia 12/11/19 18:45 03/10/20 18:44 Dextrose (Dextrose 50%) 50 ml Q30M PRN IV Hypoglycemia 12/11/19 18:45 03/10/20 18:44 Gabapentin (Neurontin) 300 mg THREE TIMES A DAY ORAL 12/12/19 09:00 01/11/20 08:59 12/13/19 13:17 Metoprolol Tartrate (Lopressor) 50 mg EVERY 12 HOURS ORAL 12/11/19 21:00 03/10/20 20:59 12/12/19 09:11 Ondansetron HCl (Zofran) 4 mg Q6H PRN IVP Nausea & Vomiting 12/11/19 18:45 01/10/20 18:44 Polyethylene Glycol (Miralax) 17 gm HSPRN PRN ORAL Constipation 12/11/19 18:45 01/10/20 18:44 Vancomycin HCl (Vanco pharmacy to dose) 1 ea DAILY PRN MISC Per rx protocol 12/12/19 10:45 01/11/20 10:44 Vancomycin HCl 1 gm/Dextrose 275 ml @ 183.708 mls/hr Q24H IVPB 12/13/19 12:00 12/18/19 11:59 12/13/19 11:23 Zolpidem Tartrate (Ambien) 5 mg HSPRN PRN ORAL Insomnia 12/11/19 18:45 12/18/19 18:44 Allergies: Coded Allergies: No Known Allergies (Unverified , 04/24/18) ROS Limited/Unobtainable: No Constitutional: Reports: no symptoms HEENT: Reports: no symptoms Cardiovascular: Reports: no symptoms Respiratory: Reports: no symptoms Gastrointestinal/Abdominal: Reports: no symptoms Genitourinary: Reports: no symptoms Neurologic/Psychiatric: Reports: no symptoms Subjective 79 YO F with history of myelodysplasia, admitted with general weakness and failure to thrive. Now severe anemia. Cover for Int Germán-DR Adrian. Step down unit Objective Last Vital Signs Date Time Temp Pulse Resp B/P (MAP) Pulse Ox O2 Delivery O2 Flow Rate FiO2 12/13/19 12:00 Nasal Cannula 2.0 12/13/19 11:58 97.7 65 17 105/63 (77) 94 12/13/19 07:35 28 Laboratory Tests Test 12/13/19 05:20 12/13/19 06:45 Sodium Level 144 MMOL/L (136-145) Potassium Level 4.2 MMOL/L (3.5-5.1) Chloride Level 113 MMOL/L (98-107) H Carbon Dioxide Level 22 MMOL/L (21-32) Anion Gap 9 mmol/L (5-15) Blood Urea Nitrogen 27 mg/dL (7-18) H Creatinine 1.0 MG/DL (0.55-1.30) Estimat Glomerular Filtration Rate 53.2 mL/min (>60) Glucose Level 78 MG/DL (74-106) Calcium Level 8.2 MG/DL (8.5-10.1) L Phosphorus Level 3.3 MG/DL (2.5-4.9) Magnesium Level 2.2 MG/DL (1.8-2.4) Total Bilirubin 1.0 MG/DL (0.2-1.0) Aspartate Amino Transf (AST/SGOT) 18 U/L (15-37) Alanine Aminotransferase (ALT/SGPT) 13 U/L (12-78) Alkaline Phosphatase 40 U/L (46-116) L Troponin I 0.012 ng/mL (0.000-0.056) Pro-B-Type Natriuretic Peptide 11836 pg/mL (0-125) H Total Protein 6.1 G/DL (6.4-8.2) L Albumin 2.8 G/DL (3.4-5.0) L Globulin 3.3 g/dL Albumin/Globulin Ratio 0.8 (1.0-2.7) L White Blood Count 5.9 K/UL (4.8-10.8) Red Blood Count 2.71 M/UL (4.20-5.40) L Hemoglobin 8.2 G/DL (12.0-16.0) #L Hematocrit 24.1 % (37.0-47.0) #L Mean Corpuscular Volume 89 FL (80-99) Mean Corpuscular Hemoglobin 30.4 PG (27.0-31.0) Mean Corpuscular Hemoglobin Concent 34.2 G/DL (32.0-36.0) Red Cell Distribution Width 17.4 % (11.6-14.8) H Platelet Count 151 K/UL (150-450) Mean Platelet Volume 12.7 FL (6.5-10.1) H Neutrophils (%) (Auto) % (45.0-75.0) Lymphocytes (%) (Auto) % (20.0-45.0) Monocytes (%) (Auto) % (1.0-10.0) Eosinophils (%) (Auto) % (0.0-3.0) Basophils (%) (Auto) % (0.0-2.0) Differential Total Cells Counted 100 Neutrophils % (Manual) 87 % (45-75) H Lymphocytes % (Manual) 8 % (20-45) L Monocytes % (Manual) 5 % (1-10) Eosinophils % (Manual) 0 % (0-3) Basophils % (Manual) 0 % (0-2) Band Neutrophils 0 % (0-8) Platelet Estimate Adequate Platelet Morphology Giant Platelets Rare Hypochromasia 1+ Anisocytosis 2+ Ovalocytes Occasional Microbiology Date/Time Source Procedure Growth Status 12/12/19 13:45 Indwelling Cath Urine Culture - Preliminary NO GROWTH AFTER 24 HOURS Resulted 12/11/19 15:55 Nasopharynx SARS-CoV-2 RdRp Gene Assay - Final Complete Intake and Output 12/12/19 12/13/19 19:00 07:00 Intake Total 420 ml 120 ml Output Total 400 ml 550 ml Balance 20 ml -430 ml Intake Oral 420 ml 120 ml Output Urine Total 400 ml 550 ml Objective PHYSICAL EXAMINATION:. GENERAL: The patient is awake and responsive, very pale, very chronically ill-appearing, cachectic. HEAD AND NECK: Pupils are equal and reactive to light. Extraocular movements are intact. Neck was supple. No JVD. LUNGS: Good air entry. No wheezing or rales. Decreased in bases. HEART: S1, S2. Regular rhythm. No murmur or gallops. ABDOMEN: Soft, nondistended, and nontender. Positive bowel sounds. EXTREMITIES: No cyanosis, clubbing, or edema. NEUROLOGIC: Cranial nerves II through XII grossly intact. The patient moving all the extremities. Gait was not assessed due to the patient's status. RECTAL: Refused and deferred. GENITOURINARY: Refused and deferred. PSYCHIATRIC: Mood and affect is intact. Assessment/Plan Assessment/Plan ASSESSMENT: 1. Severe anemia, most likely secondary to myelodysplastic syndrome and myelofibrosis. 2. Hypotension, possible due to dehydration as well as profound anemia; however, cannot rule out underlying sepsis or dehydration. 3. Chronic atrial fibrillation. 4. History of polycythemia vera. 5. History of JAK2 mutation. 6. Myelofibrosis and myelodysplasia. 7. Hypertension. 8. Coronary artery disease. 9. Dyslipidemia. 10. Congestive heart failure, chronic. 11. History of right hemothorax, status post of video-assisted thoracostomy exploration and surgery on 07/02/2019. 12. Sick sinus syndrome, status post pacemaker. 13. Failure to thrive. 14. Severe protein-calorie malnutrition. PLAN: 1. step-down unit status 2. S/P transfusion two units PRBC. 3. Dr. Mejia=Pulmonary Critical Care 4. Dr. River Freitas = Cardiology Electrophysiology. 5. Code status at this time is Full Code, discussed with the patient. 6. DVT prophylaxis, heparin subcutaneous. Roshan Edwards MD Dec 13, 2019 14:41
--- NOTE | 2019-12-13 18:28 | Cardiac Electrophysiology PN ---
Assessment/Plan Assessment/Plan 1. Weakness due to profound anemia with hemoglobin of 3. The patient has received 4 units of blood transfusion. The patient has myelofibrosis. On the previous admission also, the patient's hemoglobin was only 4 and received multiple units of blood transfusion. 2. Status post [employer] pacemaker in 2011 and generator change in 2019 by me with normal function. 3. Paroxysmal atrial fibrillation, in sinus rhythm on amiodarone 200 mg daily, metoprolol 50 mg b.i.d. and digoxin 0.125 mg daily, off anticoagulation for recurrent bleeding and profound anemia. 4. Hypertension, continue metoprolol. 5. History of polycythemia vera. 6. Myelofibrosis. 7. History of pulmonary hypertension. 8. History of hemothorax, status post VATS Subjective Subjective Had 4 units of PRBC. Feeling better. ECG showed NSR 60s Objective Last 24 Hour Vital Signs Date Time Temp Pulse Resp B/P (MAP) Pulse Ox O2 Delivery O2 Flow Rate FiO2 12/13/19 16:34 68 12/13/19 16:00 Nasal Cannula 2.0 12/13/19 16:00 98.4 70 18 122/67 (85) 98 12/13/19 12:00 Nasal Cannula 2.0 12/13/19 11:58 97.7 65 17 105/63 (77) 94 12/13/19 11:35 60 12/13/19 11:22 97.7 66 16 105/63 (77) 95 12/13/19 08:08 62 113/61 12/13/19 08:00 98.6 62 17 113/61 (78) 97 12/13/19 07:52 Nasal Cannula 2.0 12/13/19 07:39 62 12/13/19 07:35 96 Nasal Cannula 2.0 28 12/13/19 04:07 65 12/13/19 04:00 Room Air 12/13/19 04:00 98.0 60 18 116/64 (81) 94 12/13/19 00:00 Room Air 12/13/19 00:00 97.3 60 18 111/62 (78) 94 12/12/19 23:41 60 12/12/19 20:30 98 Nasal Cannula 4.0 36 12/12/19 20:00 Room Air 12/12/19 20:00 97.1 60 20 106/64 (78) 97 12/12/19 19:30 60 Intake and Output 12/12/19 12/13/19 19:00 07:00 Intake Total 420 ml 120 ml Output Total 400 ml 550 ml Balance 20 ml -430 ml Intake Oral 420 ml 120 ml Output Urine Total 400 ml 550 ml Laboratory Tests Test 12/13/19 05:20 12/13/19 06:45 Sodium Level 144 MMOL/L (136-145) Potassium Level 4.2 MMOL/L (3.5-5.1) Chloride Level 113 MMOL/L (98-107) H Carbon Dioxide Level 22 MMOL/L (21-32) Anion Gap 9 mmol/L (5-15) Blood Urea Nitrogen 27 mg/dL (7-18) H Creatinine 1.0 MG/DL (0.55-1.30) Estimat Glomerular Filtration Rate 53.2 mL/min (>60) Glucose Level 78 MG/DL (74-106) Calcium Level 8.2 MG/DL (8.5-10.1) L Phosphorus Level 3.3 MG/DL (2.5-4.9) Magnesium Level 2.2 MG/DL (1.8-2.4) Total Bilirubin 1.0 MG/DL (0.2-1.0) Aspartate Amino Transf (AST/SGOT) 18 U/L (15-37) Alanine Aminotransferase (ALT/SGPT) 13 U/L (12-78) Alkaline Phosphatase 40 U/L (46-116) L Troponin I 0.012 ng/mL (0.000-0.056) Pro-B-Type Natriuretic Peptide 54065 pg/mL (0-125) H Total Protein 6.1 G/DL (6.4-8.2) L Albumin 2.8 G/DL (3.4-5.0) L Globulin 3.3 g/dL Albumin/Globulin Ratio 0.8 (1.0-2.7) L White Blood Count 5.9 K/UL (4.8-10.8) Red Blood Count 2.71 M/UL (4.20-5.40) L Hemoglobin 8.2 G/DL (12.0-16.0) #L Hematocrit 24.1 % (37.0-47.0) #L Mean Corpuscular Volume 89 FL (80-99) Mean Corpuscular Hemoglobin 30.4 PG (27.0-31.0) Mean Corpuscular Hemoglobin Concent 34.2 G/DL (32.0-36.0) Red Cell Distribution Width 17.4 % (11.6-14.8) H Platelet Count 151 K/UL (150-450) Mean Platelet Volume 12.7 FL (6.5-10.1) H Neutrophils (%) (Auto) % (45.0-75.0) Lymphocytes (%) (Auto) % (20.0-45.0) Monocytes (%) (Auto) % (1.0-10.0) Eosinophils (%) (Auto) % (0.0-3.0) Basophils (%) (Auto) % (0.0-2.0) Differential Total Cells Counted 100 Neutrophils % (Manual) 87 % (45-75) H Lymphocytes % (Manual) 8 % (20-45) L Monocytes % (Manual) 5 % (1-10) Eosinophils % (Manual) 0 % (0-3) Basophils % (Manual) 0 % (0-2) Band Neutrophils 0 % (0-8) Platelet Estimate Adequate Platelet Morphology Giant Platelets Rare Hypochromasia 1+ Anisocytosis 2+ Ovalocytes Occasional Microbiology Date/Time Source Procedure Growth Status 12/12/19 13:45 Indwelling Cath Urine Culture - Preliminary NO GROWTH AFTER 24 HOURS Resulted 12/11/19 15:55 Nasopharynx SARS-CoV-2 RdRp Gene Assay - Final Complete Objective HEAD AND NECK: Shows no JVD. LUNGS: Clear. CARDIOVASCULAR: Regular S1 and S2 with no gallop. ABDOMEN: Soft. EXTREMITIES: No pitting edema. River Freitas MD Dec 13, 2019 18:28
[2019-12-14] VITALS: BP 121/69
[2019-12-14 04:00] VITALS: BP 116/64
[2019-12-14 06:17] LABS: BASOPHILS % (AUTO) 3.8 % (0.0-2.0); EOSINOPHILS % (AUTO) 0.2 % (0.0-3.0); HEMATOCRIT 24.8 % (37.0-47.0); HEMOGLOBIN 8.5 G/DL (12.0-16.0); LYMPHOCYTES % (AUTO) 12.3 % (20.0-45.0); MEAN CORPUSCULAR VOLUME 90 FL (80-99); MONOCYTES % (AUTO) 4.3 % (1.0-10.0); NEUTROPHILS % (AUTO) 79.4 % (45.0-75.0); PLATELET COUNT 151 K/UL (150-450); RED BLOOD COUNT 2.75 M/UL (4.20-5.40); RED CELL DISTRIBUTION WIDTH 18.1 % (11.6-14.8)
[2019-12-14 06:46] LABS: ALBUMIN 2.5 G/DL (3.4-5.0); ALBUMIN/GLOBULIN RATIO 0.7 (1.0-2.7); BILIRUBIN,TOTAL 0.9 MG/DL (0.2-1.0); CALCIUM 8.1 MG/DL (8.5-10.1); CREATININE 1.1 MG/DL (0.55-1.30); POTASSIUM 4.1 MMOL/L (3.5-5.1)
[2019-12-14 08:00] VITALS: BP 106/58
[2019-12-14] MEDS: Metoprolol Tartrate 50mg tab ORAL SCH ×2 (08:31→20:38)
[2019-12-14] MEDS: Amiodarone 200mg tab ORAL SCH ×2 (08:31→08:36)
[2019-12-14] MEDS ORDERED: Digoxin 0.5mg/2ml Inj IVP ONE (09:00)
[2019-12-14] MEDS ORDERED: Tubing Blood Filter IV ONE (09:03)
[2019-12-14] MEDS ORDERED: Tubing IV Secondary IV ONE (09:03)
[2019-12-14] MEDS ORDERED: NS 275ml ONE (09:03)
--- NOTE | 2019-12-14 11:01 | Pulmonology Progress Note ---
Subjective ROS Limited/Unobtainable: No Constitutional: Reports: no symptoms HEENT: Repors: no symptoms Respiratory: Reports: no symptoms Allergies: Coded Allergies: No Known Allergies (Unverified , 04/24/18) Objective Last 24 Hour Vital Signs Date Time Temp Pulse Resp B/P (MAP) Pulse Ox O2 Delivery O2 Flow Rate FiO2 12/14/19 09:02 120 12/14/19 08:31 135 109/62 12/14/19 08:07 130 12/14/19 08:00 70 12/14/19 08:00 98.2 67 18 106/58 (74) 98 12/14/19 08:00 128 12/14/19 07:59 101 12/14/19 04:00 98.6 75 18 116/64 (81) 98 12/14/19 04:00 Nasal Cannula 2.0 12/14/19 03:55 79 12/14/19 00:00 98.1 69 18 121/69 (86) 98 12/14/19 00:00 Nasal Cannula 2.0 12/13/19 23:58 71 12/13/19 20:47 78 121/56 12/13/19 20:00 76 12/13/19 20:00 95 Nasal Cannula 2.0 28 12/13/19 20:00 Nasal Cannula 2.0 12/13/19 20:00 97.9 75 18 123/64 (83) 98 12/13/19 16:34 68 12/13/19 16:00 Nasal Cannula 2.0 12/13/19 16:00 98.4 70 18 122/67 (85) 98 12/13/19 12:00 Nasal Cannula 2.0 12/13/19 11:58 97.7 65 17 105/63 (77) 94 12/13/19 11:35 60 12/13/19 11:22 97.7 66 16 105/63 (77) 95 Intake and Output 12/13/19 12/14/19 19:00 07:00 Intake Total 772.416 ml 120 ml Output Total 450 ml 550 ml Balance 322.416 ml -430 ml Intake Oral 350 ml 120 ml IV Total 422.416 ml Output Urine Total 450 ml 550 ml General Appearance: cachetic HEENT: normocephalic, atraumatic Respiratory: chest wall non-tender, lungs clear Breasts: no masses Cardiovascular: normal peripheral pulses, normal rate, regular rhythm Abdomen: normal bowel sounds, soft, non tender, no organomegaly Genitourinary: normal external genitalia Extremities: no cyanosis Skin: no lesions Neurologic: 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, no motor/sensory deficits, normal mood/affect Musculoskeletal: normal muscle bulk Microbiology Date/Time Source Procedure Growth Status 12/12/19 13:45 Indwelling Cath Urine Culture - Preliminary NO GROWTH AFTER 24 HOURS Resulted 12/11/19 15:55 Nasopharynx SARS-CoV-2 RdRp Gene Assay - Final Complete Laboratory Tests 12/13/19 23:18: POC Whole Blood Glucose 108H 12/14/19 04:38: White Blood Count 7.0, Red Blood Count 2.75L, Hemoglobin 8.5L, Hematocrit 24.8L, Mean Corpuscular Volume 90, Mean Corpuscular Hemoglobin 31.0, Mean Corpuscular Hemoglobin Concent 34.4, Red Cell Distribution Width 18.1H, Platelet Count 151, Mean Platelet Volume 11.4H, Neutrophils (%) (Auto) 79.4H, Lymphocytes (%) (Auto) 12.3L, Monocytes (%) (Auto) 4.3, Eosinophils (%) (Auto) 0.2, Basophils (%) (Auto) 3.8H, Sodium Level 140, Potassium Level 4.1, Chloride Level 109H, Carbon Dioxide Level 23, Anion Gap 8, Blood Urea Nitrogen 24H, Creatinine 1.1, Estimat Glomerular Filtration Rate 47.6, Glucose Level 97, Calcium Level 8.1L, Total Bilirubin 0.9, Aspartate Amino Transf (AST/SGOT) 13L, Alanine Aminotransferase (ALT/SGPT) 14, Alkaline Phosphatase 49, Pro-B-Type Natriuretic Peptide 9456H, Total Protein 6.0L, Albumin 2.5L, Globulin 3.5, Albumin/Globulin Ratio 0.7L 12/14/19 04:58: POC Whole Blood Glucose 114H Current Medications Medications (Trade) Dose Ordered Sig/Escobar Route PRN Reason Start Time Stop Time Status Last Admin Dose Admin Acetaminophen (Tylenol) 650 mg Q4H PRN ORAL fever 12/11/19 18:45 01/10/20 18:44 Amiodarone HCl (Cordarone) 200 mg DAILY ORAL 12/12/19 09:00 03/11/20 08:59 12/14/19 08:36 Cefepime HCl 1 gm/ Dextrose 55 ml @ 110 mls/hr Q24H IVPB 12/12/19 13:00 12/19/19 12:59 12/13/19 13:17 Dextrose (Dextrose 50%) 25 ml Q30M PRN IV Hypoglycemia 12/11/19 18:45 03/10/20 18:44 Dextrose (Dextrose 50%) 50 ml Q30M PRN IV Hypoglycemia 12/11/19 18:45 03/10/20 18:44 Gabapentin (Neurontin) 300 mg THREE TIMES A DAY ORAL 12/12/19 09:00 01/11/20 08:59 12/14/19 08:36 Metoprolol Tartrate (Lopressor) 50 mg EVERY 12 HOURS ORAL 12/11/19 21:00 03/10/20 20:59 12/14/19 08:31 Ondansetron HCl (Zofran) 4 mg Q6H PRN IVP Nausea & Vomiting 12/11/19 18:45 01/10/20 18:44 Polyethylene Glycol (Miralax) 17 gm HSPRN PRN ORAL Constipation 12/11/19 18:45 01/10/20 18:44 Vancomycin HCl (Vanco pharmacy to dose) 1 ea DAILY PRN MISC Per rx protocol 12/12/19 10:45 01/11/20 10:44 Vancomycin HCl 1 gm/Dextrose 275 ml @ 183.708 mls/hr Q24H IVPB 12/13/19 12:00 12/18/19 11:59 12/13/19 11:23 Zolpidem Tartrate (Ambien) 5 mg HSPRN PRN ORAL Insomnia 12/11/19 18:45 12/18/19 18:44 Assessment/Plan Problems: (1) Severe anemia (2) Myelofibrosis (3) COPD (chronic obstructive pulmonary disease) (4) Paroxysmal A-fib (5) Pacemaker (6) Protein-calorie malnutrition, severe (7) KELVIN (obstructive sleep apnea) (8) CAD (coronary artery disease) (9) JAK2 [id number] mutation Assessment/Plan episde of afib, f/u cardio recommendation h/h stable CXR from today reviewed: increasing haziness and edema, most likely fluids pt received 4 units of prbc this admission check h/h in am telemetry bed symptomatic treatment titrate fio2 to sat of 92% monitor heart rate check the pace maker titrate cardiac meds. Kelly Mejia MD Dec 14, 2019 11:01
[2019-12-14] MEDS ORDERED: Digoxin 0.5mg/2ml Inj IVP SCH (11:30)
[2019-12-14] MEDS ORDERED: NS 250 ML IVPB PRN (11:38)
[2019-12-14 12:00] VITALS: BP 98/58
[2019-12-14] MEDS: Vancomycin 1gm/D5W 275ml IVPB SCH ×2 (12:13)
[2019-12-14] MEDS: Cefepime HCl 1 GM in D5W 55 ML IVPB SCH (12:54)
--- NOTE | 2019-12-14 13:46 | Cardiac Electrophysiology PN ---
Assessment/Plan Assessment/Plan 1. Weakness due to profound anemia with hemoglobin of 3. The patient has received 4 units of blood transfusion. The patient has myelofibrosis. On the previous admission also, the patient's hemoglobin was only 4 and received multiple units of blood transfusion. 2. Status post [employer] pacemaker in 2011 and generator change in 2019 by me with normal function. 3. Paroxysmal atrial fibrillation with RVR on amiodarone 200 mg daily, metoprolol 50 mg b.i.d. and digoxin 0.125 mg daily, off anticoagulation for recurrent bleeding and profound anemia. Give 0.5 iv dig and check Dig level in am 4. Hypertension, continue metoprolol. 5. History of polycythemia vera. 6. Myelofibrosis. 7. History of pulmonary hypertension. 8. History of hemothorax, status post VATS Subjective Subjective Had 4 units of PRBC. Developed atrial fib with RVR 140s today.HR better after 0.25 iv Digoxin Objective Last 24 Hour Vital Signs Date Time Temp Pulse Resp B/P (MAP) Pulse Ox O2 Delivery O2 Flow Rate FiO2 12/14/19 12:34 122 12/14/19 12:12 106 12/14/19 12:00 97.7 106 18 98/58 (71) 96 12/14/19 12:00 Nasal Cannula 2.0 12/14/19 09:02 120 12/14/19 08:31 135 109/62 12/14/19 08:07 130 12/14/19 08:00 Nasal Cannula 2.0 12/14/19 08:00 70 12/14/19 08:00 98.2 67 18 106/58 (74) 98 12/14/19 08:00 128 12/14/19 07:59 101 12/14/19 04:00 98.6 75 18 116/64 (81) 98 12/14/19 04:00 Nasal Cannula 2.0 12/14/19 03:55 79 12/14/19 00:00 98.1 69 18 121/69 (86) 98 12/14/19 00:00 Nasal Cannula 2.0 12/13/19 23:58 71 12/13/19 20:47 78 121/56 12/13/19 20:00 76 12/13/19 20:00 95 Nasal Cannula 2.0 28 12/13/19 20:00 Nasal Cannula 2.0 12/13/19 20:00 97.9 75 18 123/64 (83) 98 12/13/19 16:34 68 12/13/19 16:00 Nasal Cannula 2.0 12/13/19 16:00 98.4 70 18 122/67 (85) 98 Intake and Output 12/13/19 12/14/19 19:00 07:00 Intake Total 772.416 ml 120 ml Output Total 450 ml 550 ml Balance 322.416 ml -430 ml Intake Oral 350 ml 120 ml IV Total 422.416 ml Output Urine Total 450 ml 550 ml Laboratory Tests Test 12/13/19 23:18 12/14/19 04:38 12/14/19 04:58 12/14/19 11:20 POC Whole Blood Glucose 108 MG/DL (74-106) H 114 MG/DL (74-106) H White Blood Count 7.0 K/UL (4.8-10.8) Red Blood Count 2.75 M/UL (4.20-5.40) L Hemoglobin 8.5 G/DL (12.0-16.0) L Hematocrit 24.8 % (37.0-47.0) L Mean Corpuscular Volume 90 FL (80-99) Mean Corpuscular Hemoglobin 31.0 PG (27.0-31.0) Mean Corpuscular Hemoglobin Concent 34.4 G/DL (32.0-36.0) Red Cell Distribution Width 18.1 % (11.6-14.8) H Platelet Count 151 K/UL (150-450) Mean Platelet Volume 11.4 FL (6.5-10.1) H Neutrophils (%) (Auto) 79.4 % (45.0-75.0) H Lymphocytes (%) (Auto) 12.3 % (20.0-45.0) L Monocytes (%) (Auto) 4.3 % (1.0-10.0) Eosinophils (%) (Auto) 0.2 % (0.0-3.0) Basophils (%) (Auto) 3.8 % (0.0-2.0) H Sodium Level 140 MMOL/L (136-145) Potassium Level 4.1 MMOL/L (3.5-5.1) Chloride Level 109 MMOL/L (98-107) H Carbon Dioxide Level 23 MMOL/L (21-32) Anion Gap 8 mmol/L (5-15) Blood Urea Nitrogen 24 mg/dL (7-18) H Creatinine 1.1 MG/DL (0.55-1.30) Estimat Glomerular Filtration Rate 47.6 mL/min (>60) Glucose Level 97 MG/DL (74-106) Calcium Level 8.1 MG/DL (8.5-10.1) L Total Bilirubin 0.9 MG/DL (0.2-1.0) Aspartate Amino Transf (AST/SGOT) 13 U/L (15-37) L Alanine Aminotransferase (ALT/SGPT) 14 U/L (12-78) Alkaline Phosphatase 49 U/L (46-116) Pro-B-Type Natriuretic Peptide 9456 pg/mL (0-125) H Total Protein 6.0 G/DL (6.4-8.2) L Albumin 2.5 G/DL (3.4-5.0) L Globulin 3.5 g/dL Albumin/Globulin Ratio 0.7 (1.0-2.7) L Vancomycin Level Trough 13.6 ug/mL (5.0-12.0) H Test 12/14/19 12:05 POC Whole Blood Glucose Pending Microbiology Date/Time Source Procedure Growth Status 12/12/19 13:45 Indwelling Cath Urine Culture - Preliminary NO GROWTH AFTER 24 HOURS Resulted 12/11/19 15:55 Nasopharynx SARS-CoV-2 RdRp Gene Assay - Final Complete Objective HEAD AND NECK: Shows no JVD. LUNGS: Clear. CARDIOVASCULAR: Regular S1 and S2 with no gallop. ABDOMEN: Soft. EXTREMITIES: No pitting edema. River Freitas MD Dec 14, 2019 13:46
--- NOTE | 2019-12-14 15:19 | Diagnostic Imaging Report ---
Indication: Dyspnea Technique: One view of the chest Comparison: 12/11/2019 Findings: Hours enlarged. There is increased bilateral pleural fluid and mid and lower lung interstitial and airspace disease. The heart is enlarged. Left chest pacemaker again demonstrated. Impression: New/increased bilateral pleural effusions, since prior study 12/11/2019 Worsening mid and lower lung interstitial and airspace disease
[2019-12-14 16:00] VITALS: BP 105/61
--- NOTE | 2019-12-14 18:54 | Internal Med Progress Note ---
Subjective Date of Service: Dec 14, 2019 Physician Name GraceRoshan Attending Physician Antonio Adrian MD Current Medications Medications (Trade) Dose Ordered Sig/Escobar Route PRN Reason Start Time Stop Time Status Last Admin Dose Admin Acetaminophen (Tylenol) 650 mg Q4H PRN ORAL fever 12/11/19 18:45 01/10/20 18:44 Amiodarone HCl (Cordarone) 200 mg DAILY ORAL 12/12/19 09:00 03/11/20 08:59 12/14/19 08:36 Cefepime HCl 1 gm/ Dextrose 55 ml @ 110 mls/hr Q24H IVPB 12/12/19 13:00 12/19/19 12:59 12/14/19 12:54 Dextrose (Dextrose 50%) 25 ml Q30M PRN IV Hypoglycemia 12/11/19 18:45 03/10/20 18:44 Dextrose (Dextrose 50%) 50 ml Q30M PRN IV Hypoglycemia 12/11/19 18:45 03/10/20 18:44 Digoxin (Lanoxin) 0.125 mg DAILY ORAL 12/15/19 09:00 03/14/20 08:59 Gabapentin (Neurontin) 300 mg THREE TIMES A DAY ORAL 12/12/19 09:00 01/11/20 08:59 12/14/19 17:33 Metoprolol Tartrate (Lopressor) 50 mg EVERY 12 HOURS ORAL 12/11/19 21:00 03/10/20 20:59 12/14/19 08:31 Ondansetron HCl (Zofran) 4 mg Q6H PRN IVP Nausea & Vomiting 12/11/19 18:45 01/10/20 18:44 Polyethylene Glycol (Miralax) 17 gm HSPRN PRN ORAL Constipation 12/11/19 18:45 01/10/20 18:44 Vancomycin HCl (Vanco pharmacy to dose) 1 ea DAILY PRN MISC Per rx protocol 12/12/19 10:45 01/11/20 10:44 Vancomycin HCl 1 gm/Dextrose 275 ml @ 183.708 mls/hr Q24H IVPB 12/13/19 12:00 12/18/19 11:59 12/14/19 12:13 Zolpidem Tartrate (Ambien) 5 mg HSPRN PRN ORAL Insomnia 12/11/19 18:45 12/18/19 18:44 Allergies: Coded Allergies: No Known Allergies (Unverified , 04/24/18) ROS Limited/Unobtainable: No Constitutional: Reports: no symptoms HEENT: Reports: no symptoms Cardiovascular: Reports: no symptoms Respiratory: Reports: no symptoms Gastrointestinal/Abdominal: Reports: no symptoms Genitourinary: Reports: no symptoms Neurologic/Psychiatric: Reports: no symptoms Subjective 79 YO F with history of myelodysplasia, admitted with general weakness and failure to thrive. Now severe anemia. Cover for Int Med-DR Adrian. Step down unit Objective Last Vital Signs Date Time Temp Pulse Resp B/P (MAP) Pulse Ox O2 Delivery O2 Flow Rate FiO2 12/14/19 16:00 97.7 98 18 105/61 (76) 98 12/14/19 16:00 Nasal Cannula 2.0 12/13/19 20:00 28 Laboratory Tests Test 12/13/19 23:18 12/14/19 04:38 12/14/19 04:58 12/14/19 11:20 POC Whole Blood Glucose 108 MG/DL (74-106) H 114 MG/DL (74-106) H White Blood Count 7.0 K/UL (4.8-10.8) Red Blood Count 2.75 M/UL (4.20-5.40) L Hemoglobin 8.5 G/DL (12.0-16.0) L Hematocrit 24.8 % (37.0-47.0) L Mean Corpuscular Volume 90 FL (80-99) Mean Corpuscular Hemoglobin 31.0 PG (27.0-31.0) Mean Corpuscular Hemoglobin Concent 34.4 G/DL (32.0-36.0) Red Cell Distribution Width 18.1 % (11.6-14.8) H Platelet Count 151 K/UL (150-450) Mean Platelet Volume 11.4 FL (6.5-10.1) H Neutrophils (%) (Auto) 79.4 % (45.0-75.0) H Lymphocytes (%) (Auto) 12.3 % (20.0-45.0) L Monocytes (%) (Auto) 4.3 % (1.0-10.0) Eosinophils (%) (Auto) 0.2 % (0.0-3.0) Basophils (%) (Auto) 3.8 % (0.0-2.0) H Sodium Level 140 MMOL/L (136-145) Potassium Level 4.1 MMOL/L (3.5-5.1) Chloride Level 109 MMOL/L (98-107) H Carbon Dioxide Level 23 MMOL/L (21-32) Anion Gap 8 mmol/L (5-15) Blood Urea Nitrogen 24 mg/dL (7-18) H Creatinine 1.1 MG/DL (0.55-1.30) Estimat Glomerular Filtration Rate 47.6 mL/min (>60) Glucose Level 97 MG/DL (74-106) Calcium Level 8.1 MG/DL (8.5-10.1) L Total Bilirubin 0.9 MG/DL (0.2-1.0) Aspartate Amino Transf (AST/SGOT) 13 U/L (15-37) L Alanine Aminotransferase (ALT/SGPT) 14 U/L (12-78) Alkaline Phosphatase 49 U/L (46-116) Pro-B-Type Natriuretic Peptide 9456 pg/mL (0-125) H Total Protein 6.0 G/DL (6.4-8.2) L Albumin 2.5 G/DL (3.4-5.0) L Globulin 3.5 g/dL Albumin/Globulin Ratio 0.7 (1.0-2.7) L Vancomycin Level Trough 13.6 ug/mL (5.0-12.0) H Test 12/14/19 12:05 12/14/19 17:31 POC Whole Blood Glucose Pending 127 MG/DL (74-106) H Microbiology Date/Time Source Procedure Growth Status 12/12/19 13:45 Indwelling Cath Urine Culture - Final NO GROWTH AFTER 48 HOURS Complete Intake and Output 12/13/19 12/14/19 19:00 07:00 Intake Total 772.416 ml 120 ml Output Total 450 ml 550 ml Balance 322.416 ml -430 ml Intake Oral 350 ml 120 ml IV Total 422.416 ml Output Urine Total 450 ml 550 ml Objective PHYSICAL EXAMINATION:. GENERAL: The patient is awake and responsive, very pale, very chronically ill-appearing, cachectic. HEAD AND NECK: Pupils are equal and reactive to light. Extraocular movements are intact. Neck was supple. No JVD. LUNGS: Good air entry. No wheezing or rales. Decreased in bases. HEART: S1, S2. Regular rhythm. No murmur or gallops. ABDOMEN: Soft, nondistended, and nontender. Positive bowel sounds. EXTREMITIES: No cyanosis, clubbing, or edema. NEUROLOGIC: Cranial nerves II through XII grossly intact. The patient moving all the extremities. Gait was not assessed due to the patient's status. RECTAL: Refused and deferred. GENITOURINARY: Refused and deferred. PSYCHIATRIC: Mood and affect is intact. Assessment/Plan Assessment/Plan ASSESSMENT: 1. Severe anemia, most likely secondary to myelodysplastic syndrome and myelofibrosis. 2. Hypotension, possible due to dehydration as well as profound anemia; however, cannot rule out underlying sepsis or dehydration. 3. Chronic atrial fibrillation. 4. History of polycythemia vera. 5. History of JAK2 mutation. 6. Myelofibrosis and myelodysplasia. 7. Hypertension. 8. Coronary artery disease. 9. Dyslipidemia. 10. Congestive heart failure, chronic. 11. History of right hemothorax, status post of video-assisted thoracostomy exploration and surgery on 07/02/2019. 12. Sick sinus syndrome, status post pacemaker. 13. Failure to thrive. 14. Severe protein-calorie malnutrition. PLAN: 1. step-down unit status 2. S/P transfusion [address] Mejia=Pulmonary Critical Care 4. Dr. River Freitas = Cardiology Electrophysiology. 5. Code status at this time is Full Code, discussed with the patient. 6. DVT prophylaxis, heparin subcutaneous. Roshan Edwards MD Dec 14, 2019 18:54
[2019-12-14 20:00] VITALS: BP 104/66
[2019-12-15] VITALS: BP 127/89
[2019-12-15 04:00] VITALS: BP 117/62
[2019-12-15 05:42] LABS: EOSINOPHILS % (AUTO) 0.3 % (0.0-3.0); HEMATOCRIT 27.6 % (37.0-47.0); HEMOGLOBIN 8.9 G/DL (12.0-16.0); LYMPHOCYTES % (AUTO) 12.2 % (20.0-45.0); MEAN CORPUSCULAR VOLUME 93 FL (80-99); MONOCYTES % (AUTO) 5.1 % (1.0-10.0); NEUTROPHILS % (AUTO) 77.3 % (45.0-75.0); PLATELET COUNT 133 K/UL (150-450); RED BLOOD COUNT 2.97 M/UL (4.20-5.40)
[2019-12-15 06:01] LABS: ANION GAP 7 mmol/L (5-15); CALCIUM 7.9 MG/DL (8.5-10.1); CARBON DIOXIDE 23 MMOL/L (21-32); CHLORIDE 107 MMOL/L (98-107); CREATININE 0.9 MG/DL (0.55-1.30); POTASSIUM 4.1 MMOL/L (3.5-5.1); SODIUM 137 MMOL/L (136-145)
[2019-12-15 06:31] LABS: BLOOD UREA NITROGEN 19 mg/dL (7-18)
[2019-12-15 08:00] VITALS: BP 111/61
[2019-12-15] MEDS: Metoprolol Tartrate 50mg tab ORAL SCH ×2 (09:00→20:42)
[2019-12-15] MEDS: Digoxin 0.125mg tab ORAL SCH (09:13)
[2019-12-15] MEDS: Amiodarone 200mg tab ORAL SCH (09:13)
--- NOTE | 2019-12-15 10:57 | Pulmonology Progress Note ---
Subjective ROS Limited/Unobtainable: No Constitutional: Reports: no symptoms HEENT: Repors: no symptoms Respiratory: Reports: no symptoms Allergies: Coded Allergies: No Known Allergies (Unverified , 04/24/18) Objective Last 24 Hour Vital Signs Date Time Temp Pulse Resp B/P (MAP) Pulse Ox O2 Delivery O2 Flow Rate FiO2 12/15/19 09:13 73 12/15/19 09:00 72 110/52 12/15/19 08:00 Nasal Cannula 2.0 12/15/19 08:00 98.0 72 18 111/61 (78) 97 12/15/19 07:15 73 12/15/19 04:00 98.4 70 16 117/62 (80) 99 12/15/19 04:00 Nasal Cannula 2.0 12/15/19 04:00 69 12/15/19 00:00 98.6 63 16 127/89 (102) 97 12/15/19 00:00 Nasal Cannula 2.0 12/15/19 00:00 87 12/14/19 20:38 87 122/80 12/14/19 20:00 97.9 98 16 104/66 (79) 98 12/14/19 20:00 87 12/14/19 20:00 Nasal Cannula 2.0 12/14/19 16:00 97.7 98 18 105/61 (76) 98 12/14/19 16:00 98 12/14/19 16:00 Nasal Cannula 2.0 12/14/19 12:34 122 12/14/19 12:12 106 12/14/19 12:00 97.7 106 18 98/58 (71) 96 12/14/19 12:00 Nasal Cannula 2.0 Intake and Output 12/14/19 12/15/19 19:00 07:00 Intake Total 350 ml 110 ml Output Total 600 ml 400 ml Balance -250 ml -290 ml Intake Oral 350 ml 110 ml Output Urine Total 600 ml 400 ml General Appearance: cachetic HEENT: normocephalic, atraumatic Respiratory: chest wall non-tender, lungs clear Breasts: no masses Cardiovascular: normal peripheral pulses, normal rate, regular rhythm Abdomen: normal bowel sounds, soft, non tender, no organomegaly Genitourinary: normal external genitalia Extremities: no cyanosis Skin: no lesions 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, no motor/sensory deficits, normal mood/affect Musculoskeletal: normal muscle bulk Microbiology Date/Time Source Procedure Growth Status 12/12/19 13:45 Indwelling Cath Urine Culture - Final NO GROWTH AFTER 48 HOURS Complete Laboratory Tests 12/14/19 11:20: Vancomycin Level Trough 13.6H 12/14/19 12:05: POC Whole Blood Glucose [Pending] 12/14/19 17:31: POC Whole Blood Glucose 127H 12/14/19 23:36: POC Whole Blood Glucose 85 12/15/19 04:18: White Blood Count 6.0, Red Blood Count 2.97L, Hemoglobin 8.9L, Hematocrit 27.6L, Mean Corpuscular Volume 93, Mean Corpuscular Hemoglobin 30.2, Mean Corpuscular Hemoglobin Concent 32.3, Red Cell Distribution Width 17.0H, Platelet Count 133L, Mean Platelet Volume 14.1H, Neutrophils (%) (Auto) 77.3H, Lymphocytes (%) (Auto) 12.2L, Monocytes (%) (Auto) 5.1, Eosinophils (%) (Auto) 0.3, Basophils (%) (Auto) 5.0H, Sodium Level 137, Potassium Level 4.1, Chloride Level 107, Carbon Dioxide Level 23, Anion Gap 7, Blood Urea Nitrogen 19H, Creatinine 0.9, Estimat Glomerular Filtration Rate > 60, Glucose Level 94, Calcium Level 7.9L, Digoxin Level 1.5 12/15/19 05:21: POC Whole Blood Glucose 85 Current Medications Medications (Trade) Dose Ordered Sig/Escobar Route PRN Reason Start Time Stop Time Status Last Admin Dose Admin Acetaminophen (Tylenol) 650 mg Q4H PRN ORAL fever 12/11/19 18:45 01/10/20 18:44 Amiodarone HCl (Cordarone) 200 mg DAILY ORAL 12/12/19 09:00 03/11/20 08:59 12/15/19 09:13 Cefepime HCl 1 gm/ Dextrose 55 ml @ 110 mls/hr Q24H IVPB 12/12/19 13:00 12/19/19 12:59 12/14/19 12:54 Dextrose (Dextrose 50%) 25 ml Q30M PRN IV Hypoglycemia 12/11/19 18:45 03/10/20 18:44 Dextrose (Dextrose 50%) 50 ml Q30M PRN IV Hypoglycemia 12/11/19 18:45 03/10/20 18:44 Digoxin (Lanoxin) 0.125 mg DAILY ORAL 12/15/19 09:00 03/14/20 08:59 12/15/19 09:13 Gabapentin (Neurontin) 300 mg THREE TIMES A DAY ORAL 12/12/19 09:00 01/11/20 08:59 12/15/19 09:13 Metoprolol Tartrate (Lopressor) 50 mg EVERY 12 HOURS ORAL 12/11/19 21:00 03/10/20 20:59 12/14/19 20:38 Ondansetron HCl (Zofran) 4 mg Q6H PRN IVP Nausea & Vomiting 12/11/19 18:45 01/10/20 18:44 Polyethylene Glycol (Miralax) 17 gm HSPRN PRN ORAL Constipation 12/11/19 18:45 01/10/20 18:44 Vancomycin HCl (Vanco pharmacy to dose) 1 ea DAILY PRN MISC Per rx protocol 12/12/19 10:45 01/11/20 10:44 Vancomycin HCl 1 gm/Dextrose 275 ml @ 183.708 mls/hr Q24H IVPB 12/13/19 12:00 12/18/19 11:59 12/14/19 12:13 Zolpidem Tartrate (Ambien) 5 mg HSPRN PRN ORAL Insomnia 12/11/19 18:45 12/18/19 18:44 Assessment/Plan Problems: (1) Severe anemia (2) Myelofibrosis (3) COPD (chronic obstructive pulmonary disease) (4) Paroxysmal A-fib (5) Pacemaker (6) Protein-calorie malnutrition, severe (7) KELVIN (obstructive sleep apnea) (8) CAD (coronary artery disease) (9) JAK2 [id number] mutation Assessment/Plan heart rate controlled h/h stable inflammatory markers are rising Pseudomonas in sputum CXR: increasing haziness and edema, most likely fluids pt received 4 units of prbc this admission so far check h/h in am telemetry bed symptomatic treatment titrate fio2 to sat of 92% monitor heart rate check the pace maker titrate cardiac meds. Kelly Mejia MD Dec 15, 2019 10:57
--- NOTE | 2019-12-15 11:00 | Diagnostic Imaging Report ---
Indication: Reason For Exam: SCREEN Technique: Grayscale and duplex images of the bilateral lower extremity veins Comparison: 04/29/2018 Findings: Bilaterally, grayscale and duplex images demonstrate no evidence of intraluminal thrombus. Normal phasic Doppler waveforms, demonstrating normal augmentation response and no evidence of valvular insufficiency. Greater saphenous vein(s) and tibial veins are patent. Normal compressibility. No significant change Impression: Negative for evidence of lower extremity deep venous thrombosis bilaterally
--- NOTE | 2019-12-15 11:13 | Cardiac Electrophysiology PN ---
Assessment/Plan Assessment/Plan 1. Weakness due to profound anemia with hemoglobin of 3. The patient has received 4 units of blood transfusion. The patient has myelofibrosis. On the previous admission also, the patient's hemoglobin was only 4 and received multiple units of blood transfusion. 2. Status post [employer] pacemaker in 2011 and generator change in 2019 by me with normal function. 3. Paroxysmal atrial fibrillation with RVR on amiodarone 200 mg daily, metoprolol 50 mg b.i.d. and digoxin 0.125 mg daily, got 0.5 iv dig and Dig level is 1.5 Off anticoagulation for recurrent bleeding and profound anemia. 4. Hypertension, continue metoprolol. 5. History of polycythemia vera. 6. Myelofibrosis. 7. History of pulmonary hypertension. 8. History of hemothorax, status post VATS Subjective Subjective Had 4 units of PRBC. Developed atrial fib with RVR 140s yesterday. HR better after 0.25 iv Digoxin and Dig level today is 1.5 Objective Last 24 Hour Vital Signs Date Time Temp Pulse Resp B/P (MAP) Pulse Ox O2 Delivery O2 Flow Rate FiO2 12/15/19 09:13 73 12/15/19 09:00 72 110/52 12/15/19 08:00 Nasal Cannula 2.0 12/15/19 08:00 98.0 72 18 111/61 (78) 97 12/15/19 07:15 73 12/15/19 04:00 98.4 70 16 117/62 (80) 99 12/15/19 04:00 Nasal Cannula 2.0 12/15/19 04:00 69 12/15/19 00:00 98.6 63 16 127/89 (102) 97 12/15/19 00:00 Nasal Cannula 2.0 12/15/19 00:00 87 12/14/19 20:38 87 122/80 12/14/19 20:00 97.9 98 16 104/66 (79) 98 12/14/19 20:00 87 12/14/19 20:00 Nasal Cannula 2.0 12/14/19 16:00 97.7 98 18 105/61 (76) 98 12/14/19 16:00 98 12/14/19 16:00 Nasal Cannula 2.0 12/14/19 12:34 122 12/14/19 12:12 106 12/14/19 12:00 97.7 106 18 98/58 (71) 96 12/14/19 12:00 Nasal Cannula 2.0 Intake and Output 12/14/19 12/15/19 19:00 07:00 Intake Total 350 ml 110 ml Output Total 600 ml 400 ml Balance -250 ml -290 ml Intake Oral 350 ml 110 ml Output Urine Total 600 ml 400 ml Laboratory Tests Test 12/14/19 11:20 12/14/19 12:05 12/14/19 17:31 12/14/19 23:36 Vancomycin Level Trough 13.6 ug/mL (5.0-12.0) H POC Whole Blood Glucose Pending 127 MG/DL (74-106) H 85 MG/DL (74-106) Test 12/15/19 04:18 12/15/19 05:21 White Blood Count 6.0 K/UL (4.8-10.8) Red Blood Count 2.97 M/UL (4.20-5.40) L Hemoglobin 8.9 G/DL (12.0-16.0) L Hematocrit 27.6 % (37.0-47.0) L Mean Corpuscular Volume 93 FL (80-99) Mean Corpuscular Hemoglobin 30.2 PG (27.0-31.0) Mean Corpuscular Hemoglobin Concent 32.3 G/DL (32.0-36.0) Red Cell Distribution Width 17.0 % (11.6-14.8) H Platelet Count 133 K/UL (150-450) L Mean Platelet Volume 14.1 FL (6.5-10.1) H Neutrophils (%) (Auto) 77.3 % (45.0-75.0) H Lymphocytes (%) (Auto) 12.2 % (20.0-45.0) L Monocytes (%) (Auto) 5.1 % (1.0-10.0) Eosinophils (%) (Auto) 0.3 % (0.0-3.0) Basophils (%) (Auto) 5.0 % (0.0-2.0) H Sodium Level 137 MMOL/L (136-145) Potassium Level 4.1 MMOL/L (3.5-5.1) Chloride Level 107 MMOL/L (98-107) Carbon Dioxide Level 23 MMOL/L (21-32) Anion Gap 7 mmol/L (5-15) Blood Urea Nitrogen 19 mg/dL (7-18) H Creatinine 0.9 MG/DL (0.55-1.30) Estimat Glomerular Filtration Rate > 60 mL/min (>60) Glucose Level 94 MG/DL (74-106) Calcium Level 7.9 MG/DL (8.5-10.1) L Digoxin Level 1.5 NG/ML (0.9-2.0) POC Whole Blood Glucose 85 MG/DL (74-106) Microbiology Date/Time Source Procedure Growth Status 12/12/19 13:45 Indwelling Cath Urine Culture - Final NO GROWTH AFTER 48 HOURS Complete Objective HEAD AND NECK: Shows no JVD. LUNGS: Clear. CARDIOVASCULAR: Regular S1 and S2 with no gallop. ABDOMEN: Soft. EXTREMITIES: No pitting edema. River Freitas MD Dec 15, 2019 11:13
[2019-12-15 12:00] VITALS: BP 118/57
[2019-12-15] MEDS: Vancomycin 1gm/D5W 275ml IVPB SCH ×2 (13:08)
[2019-12-15] MEDS: Cefepime HCl 1 GM in D5W 55 ML IVPB SCH (13:09)
[2019-12-15 16:00] VITALS: BP 114/57
--- NOTE | 2019-12-15 17:59 | Internal Med Progress Note ---
Subjective Date of Service: Dec 15, 2019 Physician Name GraceRoshan Attending Physician Antonio Adrian MD Current Medications Medications (Trade) Dose Ordered Sig/Escobar Route PRN Reason Start Time Stop Time Status Last Admin Dose Admin Acetaminophen (Tylenol) 650 mg Q4H PRN ORAL fever 12/11/19 18:45 01/10/20 18:44 Amiodarone HCl (Cordarone) 200 mg DAILY ORAL 12/12/19 09:00 03/11/20 08:59 12/15/19 09:13 Cefepime HCl 1 gm/ Dextrose 55 ml @ 110 mls/hr Q24H IVPB 12/12/19 13:00 12/19/19 12:59 12/15/19 13:09 Dextrose (Dextrose 50%) 25 ml Q30M PRN IV Hypoglycemia 12/11/19 18:45 03/10/20 18:44 Dextrose (Dextrose 50%) 50 ml Q30M PRN IV Hypoglycemia 12/11/19 18:45 03/10/20 18:44 Digoxin (Lanoxin) 0.125 mg DAILY ORAL 12/15/19 09:00 03/14/20 08:59 12/15/19 09:13 Gabapentin (Neurontin) 300 mg THREE TIMES A DAY ORAL 12/12/19 09:00 01/11/20 08:59 12/15/19 17:24 Metoprolol Tartrate (Lopressor) 50 mg EVERY 12 HOURS ORAL 12/11/19 21:00 03/10/20 20:59 12/14/19 20:38 Ondansetron HCl (Zofran) 4 mg Q6H PRN IVP Nausea & Vomiting 12/11/19 18:45 01/10/20 18:44 Polyethylene Glycol (Miralax) 17 gm HSPRN PRN ORAL Constipation 12/11/19 18:45 01/10/20 18:44 Vancomycin HCl (Vanco pharmacy to dose) 1 ea DAILY PRN MISC Per rx protocol 12/12/19 10:45 01/11/20 10:44 Vancomycin HCl 1 gm/Dextrose 275 ml @ 183.708 mls/hr Q24H IVPB 12/13/19 12:00 12/18/19 11:59 12/15/19 13:08 Zolpidem Tartrate (Ambien) 5 mg HSPRN PRN ORAL Insomnia 12/11/19 18:45 11/6/20 18:44 Allergies: Coded Allergies: No Known Allergies (Unverified , 04/24/18) ROS Limited/Unobtainable: No Constitutional: Reports: no symptoms HEENT: Reports: no symptoms Cardiovascular: Reports: no symptoms Respiratory: Reports: no symptoms Gastrointestinal/Abdominal: Reports: no symptoms Genitourinary: Reports: no symptoms Neurologic/Psychiatric: Reports: no symptoms Subjective 79 YO F with history of myelodysplasia, admitted with general weakness and failure to thrive. Now severe anemia. Cover for Int Med-DR Adrian. Step down unit Objective Last Vital Signs Date Time Temp Pulse Resp B/P (MAP) Pulse Ox O2 Delivery O2 Flow Rate FiO2 12/15/19 16:00 Nasal Cannula 2.0 12/15/19 16:00 98.4 76 18 114/57 (76) 98 12/15/19 08:45 28 Laboratory Tests Test 12/14/19 23:36 12/15/19 04:18 12/15/19 05:21 POC Whole Blood Glucose 85 MG/DL (74-106) 85 MG/DL (74-106) White Blood Count 6.0 K/UL (4.8-10.8) Red Blood Count 2.97 M/UL (4.20-5.40) L Hemoglobin 8.9 G/DL (12.0-16.0) L Hematocrit 27.6 % (37.0-47.0) L Mean Corpuscular Volume 93 FL (80-99) Mean Corpuscular Hemoglobin 30.2 PG (27.0-31.0) Mean Corpuscular Hemoglobin Concent 32.3 G/DL (32.0-36.0) Red Cell Distribution Width 17.0 % (11.6-14.8) H Platelet Count 133 K/UL (150-450) L Mean Platelet Volume 14.1 FL (6.5-10.1) H Neutrophils (%) (Auto) 77.3 % (45.0-75.0) H Lymphocytes (%) (Auto) 12.2 % (20.0-45.0) L Monocytes (%) (Auto) 5.1 % (1.0-10.0) Eosinophils (%) (Auto) 0.3 % (0.0-3.0) Basophils (%) (Auto) 5.0 % (0.0-2.0) H Sodium Level 137 MMOL/L (136-145) Potassium Level 4.1 MMOL/L (3.5-5.1) Chloride Level 107 MMOL/L (98-107) Carbon Dioxide Level 23 MMOL/L (21-32) Anion Gap 7 mmol/L (5-15) Blood Urea Nitrogen 19 mg/dL (7-18) H Creatinine 0.9 MG/DL (0.55-1.30) Estimat Glomerular Filtration Rate > 60 mL/min (>60) Glucose Level 94 MG/DL (74-106) Calcium Level 7.9 MG/DL (8.5-10.1) L Digoxin Level 1.5 NG/ML (0.9-2.0) Intake and Output 12/14/19 12/15/19 19:00 07:00 Intake Total 350 ml 110 ml Output Total 600 ml 400 ml Balance -250 ml -290 ml Intake Oral 350 ml 110 ml Output Urine Total 600 ml 400 ml Objective PHYSICAL EXAMINATION:. GENERAL: The patient is awake and responsive, very pale, very chronically ill-appearing, cachectic. HEAD AND NECK: Pupils are equal and reactive to light. Extraocular movements are intact. Neck was supple. No JVD. LUNGS: Good air entry. No wheezing or rales. Decreased in bases. HEART: S1, S2. Regular rhythm. No murmur or gallops. ABDOMEN: Soft, nondistended, and nontender. Positive bowel sounds. EXTREMITIES: No cyanosis, clubbing, or edema. NEUROLOGIC: Cranial nerves II through XII grossly intact. The patient moving all the extremities. Gait was not assessed due to the patient's status. RECTAL: Refused and deferred. GENITOURINARY: Refused and deferred. PSYCHIATRIC: Mood and affect is intact. Assessment/Plan Assessment/Plan ASSESSMENT: 1. Severe anemia, most likely secondary to myelodysplastic syndrome and myelofibrosis. 2. Hypotension, possible due to dehydration as well as profound anemia; however, cannot rule out underlying sepsis or dehydration. 3. Chronic atrial fibrillation. 4. History of polycythemia vera. 5. History of JAK2 mutation. 6. Myelofibrosis and myelodysplasia. 7. Hypertension. 8. Coronary artery disease. 9. Dyslipidemia. 10. Congestive heart failure, chronic. 11. History of right hemothorax, status post of video-assisted thoracostomy exploration and surgery on 07/02/2019. 12. Sick sinus syndrome, status post pacemaker. 13. Failure to thrive. 14. Severe protein-calorie malnutrition. PLAN: 1. step-down unit status 2. S/P transfusion [address] Mejia=Pulmonary Critical Care 4. Dr. River Freitas = Cardiology Electrophysiology. 5. Code status at this time is Full Code, discussed with the patient. 6. DVT prophylaxis, heparin subcutaneous. Roshan Edwards MD Dec 15, 2019 17:59
[2019-12-15] MEDS ORDERED: NS 275ml ONE (18:29)
[2019-12-15 20:00] VITALS: BP 128/69
[2019-12-16] VITALS: BP 124/56
[2019-12-16 04:00] VITALS: BP 125/71
--- NOTE | 2019-12-16 04:07 | Cardiology Report ---
APPROVED REPORT EKG Measurement Heart [id number] <Conclusion> Normal sinus rhythm Left axis deviation Cannot rule out Anterior infarct, age undetermined Abnormal ECG
--- NOTE | 2019-12-16 04:07 | Cardiology Report ---
APPROVED REPORT EXAM: Two-dimensional and M-mode echocardiogram with Doppler and color Doppler. INDICATION Congestive Heart Failure M-Mode DIMENSIONS IVSd1.1 (0.7-1.1cm)Left Atrium (MM)4.2 (1.6-4.0cm) LVDd4.4 (3.5-5.6cm)Aortic Root3.1 (2.0-3.7cm) PWd1.1 (0.7-1.1cm)Aortic Cusp Exc.2.0 (1.5-2.0cm) IVSs1.5 cmEPSS1.0 (>1.0cm) LVDs2.9 (2.5-4.0cm) PWs1.4 cm <Conclusion> Normal left ventricular chamber size, systolic function and wall motion. Left ventricular ejection fraction estimated to be 50-55 %. No evidence of left ventricular hypertrophy. Pleural effusion. Mild left atrial enlargement. Right cardiac chamber sizes are within normal limits. Pacing wire in RV Focal aortic valve sclerosis with adequate cusp excursion. Thickened mitral valve leaflets with normal excursion. Mild mitral annulus and aortic root calcification. Normal pulmonic valve structure. Normal tricuspid valve structure. IVC dilated at 2.2 cm without physiological collapse, suggestive of increased RA pressure. A color flow and spectral Doppler study was performed and revealed: No aortic regurgitation. Mild mitral regurgitation. Mitral inflow velocities indicates normal diastolic fucntion Moderate tricuspid regurgitation. Tricuspid systolic velocities suggests peak right ventricular systolic pressure of 65-70 mmHg, consistent with severe pulmonary hypertension. Mild pulmonic regurgitation present.
--- NOTE | 2019-12-16 04:10 | Cardiology Report ---
APPROVED REPORT EKG Measurement Heart [id number] <Conclusion> Normal sinus rhythm Left axis deviation Cannot rule out Anterior infarct, age undetermined Abnormal ECG
[2019-12-16 05:18] LABS: BASOPHILS % (AUTO) 5.2 % (0.0-2.0); EOSINOPHILS % (AUTO) 0.2 % (0.0-3.0); HEMATOCRIT 28.9 % (37.0-47.0); HEMOGLOBIN 9.2 G/DL (12.0-16.0); LYMPHOCYTES % (AUTO) 20.2 % (20.0-45.0); MEAN CORPUSCULAR VOLUME 94 FL (80-99); MONOCYTES % (AUTO) 4.1 % (1.0-10.0); NEUTROPHILS % (AUTO) 70.4 % (45.0-75.0); PLATELET COUNT 107 K/UL (150-450); RED BLOOD COUNT 3.09 M/UL (4.20-5.40); RED CELL DISTRIBUTION WIDTH 18.1 % (11.6-14.8); WHITE BLOOD COUNT 5.2 K/UL (4.8-10.8)
[2019-12-16 05:49] LABS: CALCIUM 8.2 MG/DL (8.5-10.1); POTASSIUM 4.2 MMOL/L (3.5-5.1)
[2019-12-16 08:10] VITALS: BP 131/71
[2019-12-16] MEDS: Amiodarone 200mg tab ORAL SCH (09:33)
[2019-12-16] MEDS: Metoprolol Tartrate 50mg tab ORAL SCH ×2 (09:34→20:43)
[2019-12-16] MEDS: Digoxin 0.125mg tab ORAL SCH (09:34)
--- NOTE | 2019-12-16 10:20 | Pulmonology Progress Note ---
Subjective ROS Limited/Unobtainable: No Constitutional: Reports: no symptoms HEENT: Repors: no symptoms Respiratory: Reports: no symptoms Allergies: Coded Allergies: No Known Allergies (Unverified , 04/24/18) Objective Last 24 Hour Vital Signs Date Time Temp Pulse Resp B/P (MAP) Pulse Ox O2 Delivery O2 Flow Rate FiO2 12/16/19 09:34 64 12/16/19 09:34 64 131/71 12/16/19 08:10 96.5 64 16 131/71 (91) 99 12/16/19 08:00 Nasal Cannula 2.0 12/16/19 04:00 Nasal Cannula 2.0 12/16/19 04:00 97.2 62 18 125/71 (89) 99 12/16/19 03:33 60 12/16/19 00:00 Nasal Cannula 2.0 12/16/19 00:00 97.7 66 20 124/56 (78) 94 12/16/19 00:00 62 12/15/19 20:42 70 128/92 12/15/19 20:00 97.7 71 21 128/69 (88) 97 12/15/19 20:00 Nasal Cannula 2.0 12/15/19 19:28 70 12/15/19 16:00 Nasal Cannula 2.0 12/15/19 16:00 98.4 76 18 114/57 (76) 98 12/15/19 15:53 72 12/15/19 12:00 67 12/15/19 12:00 98.0 80 18 118/57 (77) 98 12/15/19 12:00 Nasal Cannula 2.0 Intake and Output 12/15/19 12/16/19 19:00 07:00 Intake Total 827.416 ml 120 ml Output Total 500 ml 600 ml Balance 327.416 ml -480 ml Intake Oral 350 ml 120 ml IV Total 477.416 ml Output Urine Total 500 ml 600 ml # Bowel Movements 2 General Appearance: cachetic HEENT: normocephalic, atraumatic Respiratory: chest wall non-tender, lungs clear Breasts: no masses Cardiovascular: normal peripheral pulses, normal rate, regular rhythm Abdomen: normal bowel sounds, soft, non tender, no organomegaly Genitourinary: normal external genitalia Extremities: no cyanosis, no edema Skin: no lesions Neurologic: solid plasterer II-XII grossly normal, no motor/sensory deficits, normal mood/affect Musculoskeletal: normal muscle bulk Laboratory Tests 12/16/19 00:48: POC Whole Blood Glucose 96 12/16/19 03:50: White Blood Count 5.2, Red Blood Count 3.09L, Hemoglobin 9.2L, Hematocrit 28.9L, Mean Corpuscular Volume 94, Mean Corpuscular Hemoglobin 30.0, Mean Corpuscular Hemoglobin Concent 32.0, Red Cell Distribution Width 18.1H, Platelet Count 107L, Mean Platelet Volume 10.9H, Neutrophils (%) (Auto) 70.4, Lymphocytes (%) (Auto) 20.2, Monocytes (%) (Auto) 4.1, Eosinophils (%) (Auto) 0.2, Basophils (%) (Auto) 5.2H, Sodium Level 138, Potassium Level 4.2, Chloride Level 107, Carbon Dioxide Level 25, Anion Gap 6, Blood Urea Nitrogen 21H, Creatinine 1.0, Estimat Glomerular Filtration Rate 53.2, Glucose Level 81, Calcium Level 8.2L Current Medications Medications (Trade) Dose Ordered Sig/Escobar Route PRN Reason Start Time Stop Time Status Last Admin Dose Admin Acetaminophen (Tylenol) 650 mg Q4H PRN ORAL fever 12/11/19 18:45 01/10/20 18:44 Amiodarone HCl (Cordarone) 200 mg DAILY ORAL 12/12/19 09:00 03/11/20 08:59 12/16/19 09:33 Cefepime HCl 1 gm/ Dextrose 55 ml @ 110 mls/hr Q24H IVPB 12/12/19 13:00 12/19/19 12:59 12/15/19 13:09 Dextrose (Dextrose 50%) 25 ml Q30M PRN IV Hypoglycemia 12/11/19 18:45 03/10/20 18:44 Dextrose (Dextrose 50%) 50 ml Q30M PRN IV Hypoglycemia 12/11/19 18:45 03/10/20 18:44 Digoxin (Lanoxin) 0.125 mg DAILY ORAL 12/15/19 09:00 03/14/20 08:59 12/16/19 09:34 Gabapentin (Neurontin) 300 mg THREE TIMES A DAY ORAL 12/12/19 09:00 01/11/20 08:59 12/16/19 09:34 Metoprolol Tartrate (Lopressor) 50 mg EVERY 12 HOURS ORAL 12/11/19 21:00 03/10/20 20:59 12/16/19 09:34 Ondansetron HCl (Zofran) 4 mg Q6H PRN IVP Nausea & Vomiting 12/11/19 18:45 01/10/20 18:44 Polyethylene Glycol (Miralax) 17 gm HSPRN PRN ORAL Constipation 12/11/19 18:45 01/10/20 18:44 Vancomycin HCl (Vanco pharmacy to dose) 1 ea DAILY PRN MISC Per rx protocol 12/12/19 10:45 01/11/20 10:44 Vancomycin HCl 1 gm/Dextrose 275 ml @ 183.708 mls/hr Q24H IVPB 12/13/19 12:00 12/18/19 11:59 12/15/19 13:08 Zolpidem Tartrate (Ambien) 5 mg HSPRN PRN ORAL Insomnia 12/11/19 18:45 12/18/19 18:44 Assessment/Plan Problems: (1) Severe anemia (2) Myelofibrosis (3) COPD (chronic obstructive pulmonary disease) (4) Paroxysmal A-fib (5) Pacemaker (6) Protein-calorie malnutrition, severe (7) KELVIN (obstructive sleep apnea) (8) CAD (coronary artery disease) (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 Kelly Mejia MD Dec 16, 2019 10:20
--- NOTE | 2019-12-16 11:21 | Internal Med Progress Note ---
Subjective Date of Service: Dec 16, 2019 Physician Name GraceRoshan Attending Physician Antonio Adrian MD Current Medications Medications (Trade) Dose Ordered Sig/Escobar Route PRN Reason Start Time Stop Time Status Last Admin Dose Admin Acetaminophen (Tylenol) 650 mg Q4H PRN ORAL fever 12/11/19 18:45 01/10/20 18:44 Amiodarone HCl (Cordarone) 200 mg DAILY ORAL 12/12/19 09:00 03/11/20 08:59 12/16/19 09:33 Cefepime HCl 1 gm/ Dextrose 55 ml @ 110 mls/hr Q24H IVPB 12/12/19 13:00 12/19/19 12:59 12/15/19 13:09 Dextrose (Dextrose 50%) 25 ml Q30M PRN IV Hypoglycemia 12/11/19 18:45 03/10/20 18:44 Dextrose (Dextrose 50%) 50 ml Q30M PRN IV Hypoglycemia 12/11/19 18:45 03/10/20 18:44 Digoxin (Lanoxin) 0.125 mg DAILY ORAL 12/15/19 09:00 03/14/20 08:59 12/16/19 09:34 Gabapentin (Neurontin) 300 mg THREE TIMES A DAY ORAL 12/12/19 09:00 01/11/20 08:59 12/16/19 09:34 Metoprolol Tartrate (Lopressor) 50 mg EVERY 12 HOURS ORAL 12/11/19 21:00 03/10/20 20:59 12/16/19 09:34 Ondansetron HCl (Zofran) 4 mg Q6H PRN IVP Nausea & Vomiting 12/11/19 18:45 01/10/20 18:44 Polyethylene Glycol (Miralax) 17 gm HSPRN PRN ORAL Constipation 12/11/19 18:45 01/10/20 18:44 Vancomycin HCl (Vanco pharmacy to dose) 1 ea DAILY PRN MISC Per rx protocol 12/12/19 10:45 01/11/20 10:44 Vancomycin HCl 1 gm/Dextrose 275 ml @ 183.708 mls/hr Q24H IVPB 12/13/19 12:00 12/18/19 11:59 12/15/19 13:08 Zolpidem Tartrate (Ambien) 5 mg HSPRN PRN ORAL Insomnia 12/11/19 18:45 11/6/20 18:44 Allergies: Coded Allergies: No Known Allergies (Unverified , 04/24/18) ROS Limited/Unobtainable: No Constitutional: Reports: no symptoms HEENT: Reports: no symptoms Cardiovascular: Reports: no symptoms Respiratory: Reports: no symptoms Gastrointestinal/Abdominal: Reports: no symptoms Genitourinary: Reports: no symptoms Neurologic/Psychiatric: Reports: no symptoms Subjective 79 YO F with history of myelodysplasia, admitted with general weakness and failure to thrive. Now severe anemia. Cover for Int Med-DR Adrian. Step down unit Objective Last Vital Signs Date Time Temp Pulse Resp B/P (MAP) Pulse Ox O2 Delivery O2 Flow Rate FiO2 12/16/19 09:34 64 12/16/19 09:34 131/71 12/16/19 08:10 96.5 16 99 12/16/19 08:00 Nasal Cannula 2.0 12/15/19 08:45 28 Laboratory Tests Test 12/16/19 00:48 12/16/19 03:50 POC Whole Blood Glucose 96 MG/DL (74-106) White Blood Count 5.2 K/UL (4.8-10.8) Red Blood Count 3.09 M/UL (4.20-5.40) L Hemoglobin 9.2 G/DL (12.0-16.0) L Hematocrit 28.9 % (37.0-47.0) L Mean Corpuscular Volume 94 FL (80-99) Mean Corpuscular Hemoglobin 30.0 PG (27.0-31.0) Mean Corpuscular Hemoglobin Concent 32.0 G/DL (32.0-36.0) Red Cell Distribution Width 18.1 % (11.6-14.8) H Platelet Count 107 K/UL (150-450) L Mean Platelet Volume 10.9 FL (6.5-10.1) H Neutrophils (%) (Auto) 70.4 % (45.0-75.0) Lymphocytes (%) (Auto) 20.2 % (20.0-45.0) Monocytes (%) (Auto) 4.1 % (1.0-10.0) Eosinophils (%) (Auto) 0.2 % (0.0-3.0) Basophils (%) (Auto) 5.2 % (0.0-2.0) H Sodium Level 138 MMOL/L (136-145) Potassium Level 4.2 MMOL/L (3.5-5.1) Chloride Level 107 MMOL/L (98-107) Carbon Dioxide Level 25 MMOL/L (21-32) Anion Gap 6 mmol/L (5-15) Blood Urea Nitrogen 21 mg/dL (7-18) H Creatinine 1.0 MG/DL (0.55-1.30) Estimat Glomerular Filtration Rate 53.2 mL/min (>60) Glucose Level 81 MG/DL (74-106) Calcium Level 8.2 MG/DL (8.5-10.1) L Intake and Output 12/15/19 12/16/19 19:00 07:00 Intake Total 827.416 ml 120 ml Output Total 500 ml 600 ml Balance 327.416 ml -480 ml Intake Oral 350 ml 120 ml IV Total 477.416 ml Output Urine Total 500 ml 600 ml # Bowel Movements 2 Objective PHYSICAL EXAMINATION:. GENERAL: The patient is awake and responsive, very pale, very chronically ill-appearing, cachectic. HEAD AND NECK: Pupils are equal and reactive to light. Extraocular movements are intact. Neck was supple. No JVD. LUNGS: Good air entry. No wheezing or rales. Decreased in bases. HEART: S1, S2. Regular rhythm. No murmur or gallops. ABDOMEN: Soft, nondistended, and nontender. Positive bowel sounds. EXTREMITIES: No cyanosis, clubbing, or edema. NEUROLOGIC: Cranial nerves II through XII grossly intact. The patient moving all the extremities. Gait was not assessed due to the patient's status. RECTAL: Refused and deferred. GENITOURINARY: Refused and deferred. PSYCHIATRIC: Mood and affect is intact. Assessment/Plan Assessment/Plan ASSESSMENT: 1. Severe anemia, most likely secondary to myelodysplastic syndrome and myelofibrosis. 2. Hypotension, possible due to dehydration as well as profound anemia; however, cannot rule out underlying sepsis or dehydration. 3. Chronic atrial fibrillation. 4. History of polycythemia vera. 5. History of JAK2 mutation. 6. Myelofibrosis and myelodysplasia. 7. Hypertension. 8. Coronary artery disease. 9. Dyslipidemia. 10. Congestive heart failure, chronic. 11. History of right hemothorax, status post of video-assisted thoracostomy exploration and surgery on 07/02/2019. 12. Sick sinus syndrome, status post pacemaker. 13. Failure to thrive. 14. Severe protein-calorie malnutrition. PLAN: 1. step-down unit status 2. S/P transfusion [address] Mejia=Pulmonary Critical Care 4. Dr. River Freitas = Cardiology Electrophysiology. 5. Code status at this time is Full Code, discussed with the patient. 6. DVT prophylaxis, heparin subcutaneous. Roshan Edwards MD Dec 16, 2019 11:21
[2019-12-16 12:00] VITALS: BP 96/48
[2019-12-16] MEDS: Vancomycin 1gm/D5W 275ml IVPB SCH ×2 (13:03)
[2019-12-16] MEDS: Cefepime HCl 1 GM in D5W 55 ML IVPB SCH (13:25)
--- NOTE | 2019-12-16 15:36 | Cardiac Electrophysiology PN ---
Assessment/Plan Assessment/Plan 1. Weakness due to profound anemia with hemoglobin of 3. S/P 4 units of blood transfusion. The patient has myelofibrosis. On the previous admission also, the patient's hemoglobin was only 4 and received multiple units of blood transfusion. 2. Status post [employer] pacemaker in 2011 and generator change in 2019 by me with normal function. 3. Paroxysmal atrial fibrillation with RVR on amiodarone 200 mg daily, metoprol ol 50 mg b.i.d. and digoxin 0.125 mg daily Dig level is 1.5 Off anticoagulation for recurrent bleeding and profound anemia. 4. Hypertension, continue metoprolol. 5. History of polycythemia vera. 6. Myelofibrosis. 7. History of pulmonary hypertension. 8. History of hemothorax, status post VATS DW RN Subjective Subjective Had 4 units of PRBC. Developed atrial fib with RVR 140s on 12/14/19. HR better after 0.25 iv Digoxin and Dig level is 1.5 Confused. Pulled out her Left IG iv line. Objective Last 24 Hour Vital Signs Date Time Temp Pulse Resp B/P (MAP) Pulse Ox O2 Delivery O2 Flow Rate FiO2 12/16/19 12:00 97.0 60 16 96/48 (64) 98 12/16/19 12:00 60 12/16/19 12:00 Nasal Cannula 2.0 12/16/19 09:34 64 12/16/19 09:34 64 131/71 12/16/19 08:10 96.5 64 16 131/71 (91) 99 12/16/19 08:00 Nasal Cannula 2.0 12/16/19 08:00 63 12/16/19 04:00 Nasal Cannula 2.0 12/16/19 04:00 97.2 62 18 125/71 (89) 99 12/16/19 03:33 60 12/16/19 00:00 Nasal Cannula 2.0 12/16/19 00:00 97.7 66 20 124/56 (78) 94 12/16/19 00:00 62 12/15/19 20:42 70 128/92 12/15/19 20:00 97.7 71 21 128/69 (88) 97 12/15/19 20:00 Nasal Cannula 2.0 12/15/19 19:28 70 12/15/19 16:00 Nasal Cannula 2.0 12/15/19 16:00 98.4 76 18 114/57 (76) 98 12/15/19 15:53 72 Intake and Output 12/15/19 12/16/19 19:00 07:00 Intake Total 827.416 ml 120 ml Output Total 500 ml 600 ml Balance 327.416 ml -480 ml Intake Oral 350 ml 120 ml IV Total 477.416 ml Output Urine Total 500 ml 600 ml # Bowel Movements 2 Laboratory Tests Test 12/16/19 00:48 12/16/19 03:50 12/16/19 12:11 POC Whole Blood Glucose 96 MG/DL (74-106) 98 MG/DL (74-106) White Blood Count 5.2 K/UL (4.8-10.8) Red Blood Count 3.09 M/UL (4.20-5.40) L Hemoglobin 9.2 G/DL (12.0-16.0) L Hematocrit 28.9 % (37.0-47.0) L Mean Corpuscular Volume 94 FL (80-99) Mean Corpuscular Hemoglobin 30.0 PG (27.0-31.0) Mean Corpuscular Hemoglobin Concent 32.0 G/DL (32.0-36.0) Red Cell Distribution Width 18.1 % (11.6-14.8) H Platelet Count 107 K/UL (150-450) L Mean Platelet Volume 10.9 FL (6.5-10.1) H Neutrophils (%) (Auto) 70.4 % (45.0-75.0) Lymphocytes (%) (Auto) 20.2 % (20.0-45.0) Monocytes (%) (Auto) 4.1 % (1.0-10.0) Eosinophils (%) (Auto) 0.2 % (0.0-3.0) Basophils (%) (Auto) 5.2 % (0.0-2.0) H Sodium Level 138 MMOL/L (136-145) Potassium Level 4.2 MMOL/L (3.5-5.1) Chloride Level 107 MMOL/L (98-107) Carbon Dioxide Level 25 MMOL/L (21-32) Anion Gap 6 mmol/L (5-15) Blood Urea Nitrogen 21 mg/dL (7-18) H Creatinine 1.0 MG/DL (0.55-1.30) Estimat Glomerular Filtration Rate 53.2 mL/min (>60) Glucose Level 81 MG/DL (74-106) Calcium Level 8.2 MG/DL (8.5-10.1) L Objective HEAD AND NECK: No JVD. LUNGS: Clear. CARDIOVASCULAR: Regular S1 and S2 with no gallop. ABDOMEN: Soft. EXTREMITIES: No pitting edema. River Freitas MD Dec 16, 2019 15:36
[2019-12-16 16:00] VITALS: BP 106/60
[2019-12-16 20:00] VITALS: BP 105/51
[2019-12-17] VITALS: BP 96/59
[2019-12-17 04:00] VITALS: BP 123/64
[2019-12-17 04:37] LABS: BASOPHILS % (AUTO) 4.5 % (0.0-2.0); EOSINOPHILS % (AUTO) 0.4 % (0.0-3.0); HEMATOCRIT 26.5 % (37.0-47.0); HEMOGLOBIN 8.4 G/DL (12.0-16.0); LYMPHOCYTES % (AUTO) 22.8 % (20.0-45.0); MEAN CORPUSCULAR VOLUME 94 FL (80-99); MONOCYTES % (AUTO) 3.8 % (1.0-10.0); NEUTROPHILS % (AUTO) 68.5 % (45.0-75.0); PLATELET COUNT 110 K/UL (150-450); RED BLOOD COUNT 2.82 M/UL (4.20-5.40); RED CELL DISTRIBUTION WIDTH 17.7 % (11.6-14.8); WHITE BLOOD COUNT 5.2 K/UL (4.8-10.8)
[2019-12-17 05:12] LABS: ANION GAP 3 mmol/L (5-15); BLOOD UREA NITROGEN 18 mg/dL (7-18); CALCIUM 7.6 MG/DL (8.5-10.1); CARBON DIOXIDE 28 MMOL/L (21-32); CHLORIDE 107 MMOL/L (98-107); CREATININE 0.8 MG/DL (0.55-1.30); POTASSIUM 4.2 MMOL/L (3.5-5.1); SODIUM 138 MMOL/L (136-145)
[2019-12-17 08:00] VITALS: BP 101/61
[2019-12-17] MEDS: Amiodarone 200mg tab ORAL SCH (09:08)
[2019-12-17] MEDS: Metoprolol Tartrate 50mg tab ORAL SCH ×2 (09:08→21:49)
[2019-12-17] MEDS: Digoxin 0.125mg tab ORAL SCH (09:08)
[2019-12-17 12:00] VITALS: BP 101/59
[2019-12-17] MEDS: Vancomycin 1gm/D5W 275ml IVPB SCH ×2 (12:03)
--- NOTE | 2019-12-17 12:49 | Pulmonology Progress Note ---
Subjective ROS Limited/Unobtainable: No Constitutional: Reports: no symptoms HEENT: Repors: no symptoms Respiratory: Reports: no symptoms Allergies: Coded Allergies: No Known Allergies (Unverified , 04/24/18) Objective Last 24 Hour Vital Signs Date Time Temp Pulse Resp B/P (MAP) Pulse Ox O2 Delivery O2 Flow Rate FiO2 12/17/19 12:00 Nasal Cannula 2.0 12/17/19 12:00 97.2 61 17 101/59 (73) 95 12/17/19 09:13 99 Nasal Cannula 2.0 28 12/17/19 09:08 67 12/17/19 09:08 67 101/61 12/17/19 08:00 97.5 67 18 101/61 (74) 99 12/17/19 08:00 Nasal Cannula 2.0 12/17/19 07:42 67 12/17/19 04:00 Nasal Cannula 2.0 12/17/19 04:00 99.1 71 18 123/64 (83) 100 12/17/19 03:29 66 12/17/19 00:00 97.5 64 20 96/59 (71) 96 12/17/19 00:00 Nasal Cannula 2.0 12/16/19 23:48 64 12/16/19 20:43 60 99/50 12/16/19 20:30 98 Nasal Cannula 2.0 28 12/16/19 20:00 96.8 60 19 105/51 (69) 98 12/16/19 20:00 Nasal Cannula 2.0 12/16/19 19:06 60 12/16/19 16:00 61 12/16/19 16:00 Nasal Cannula 2.0 12/16/19 16:00 96.0 62 20 106/60 (75) 100 Intake and Output 12/16/19 12/17/19 19:00 07:00 Intake Total 920 ml 120 ml Output Total 650 ml 700 ml Balance 270 ml -580 ml Intake Oral 920 ml 120 ml Output Urine Total 650 ml 700 ml # Bowel Movements 3 2 General Appearance: cachetic HEENT: normocephalic, atraumatic Respiratory: chest wall non-tender, lungs clear Breasts: no masses Cardiovascular: normal peripheral pulses, normal rate, regular rhythm Abdomen: normal bowel sounds, soft, non tender, no organomegaly Genitourinary: normal external genitalia Extremities: no cyanosis, no edema Skin: no lesions Neurologic: director staffing II-XII grossly normal, no motor/sensory deficits, normal mood/affect Musculoskeletal: normal muscle bulk Laboratory Tests 12/16/19 17:16: POC Whole Blood Glucose 152H 12/17/19 02:50: White Blood Count 5.2, Red Blood Count 2.82L, Hemoglobin 8.4L, Hematocrit 26.5L, Mean Corpuscular Volume 94, Mean Corpuscular Hemoglobin 29.8, Mean Corpuscular Hemoglobin Concent 31.8L, Red Cell Distribution Width 17.7H, Platelet Count 110L , Mean Platelet Volume 12.5H, Neutrophils (%) (Auto) 68.5, Lymphocytes (%) (Auto) 22.8, Monocytes (%) (Auto) 3.8, Eosinophils (%) (Auto) 0.4, Basophils (%) (Auto) 4.5H, Sodium Level 138, Potassium Level 4.2, Chloride Level 107, Carbon Dioxide Level 28, Anion Gap 3L, Blood Urea Nitrogen 18, Creatinine 0.8, Estimat Glomerular Filtration Rate > 60, Glucose Level 83, Calcium Level 7.6L 12/17/19 04:00: Stool Occult Blood [Pending] Current Medications Medications (Trade) Dose Ordered Sig/Escobar Route PRN Reason Start Time Stop Time Status Last Admin Dose Admin Acetaminophen (Tylenol) 650 mg Q4H PRN ORAL fever 12/11/19 18:45 01/10/20 18:44 Amiodarone HCl (Cordarone) 200 mg DAILY ORAL 12/12/19 09:00 03/11/20 08:59 12/17/19 09:08 Cefepime HCl 1 gm/ Dextrose 55 ml @ 110 mls/hr Q24H IVPB 12/12/19 13:00 12/19/19 12:59 12/16/19 13:25 Dextrose (Dextrose 50%) 25 ml Q30M PRN IV Hypoglycemia 12/11/19 18:45 03/10/20 18:44 Dextrose (Dextrose 50%) 50 ml Q30M PRN IV Hypoglycemia 12/11/19 18:45 03/10/20 18:44 Digoxin (Lanoxin) 0.125 mg DAILY ORAL 12/15/19 09:00 03/14/20 08:59 12/17/19 09:08 Gabapentin (Neurontin) 300 mg THREE TIMES A DAY ORAL 12/12/19 09:00 01/11/20 08:59 12/17/19 09:08 Metoprolol Tartrate (Lopressor) 50 mg EVERY 12 HOURS ORAL 12/11/19 21:00 03/10/20 20:59 12/17/19 09:08 Ondansetron HCl (Zofran) 4 mg Q6H PRN IVP Nausea & Vomiting 12/11/19 18:45 01/10/20 18:44 Polyethylene Glycol (Miralax) 17 gm HSPRN PRN ORAL Constipation 12/11/19 18:45 01/10/20 18:44 Vancomycin HCl (Vanco pharmacy to dose) 1 ea DAILY PRN MISC Per rx protocol 12/12/19 10:45 01/11/20 10:44 Vancomycin HCl 1 gm/Dextrose 275 ml @ 183.708 mls/hr Q24H IVPB 12/13/19 12:00 12/18/19 11:59 12/17/19 12:03 Zolpidem Tartrate (Ambien) 5 mg HSPRN PRN ORAL Insomnia 12/11/19 18:45 12/18/19 18:44 Assessment/Plan Problems: (1) Severe anemia (2) Myelofibrosis (3) COPD (chronic obstructive pulmonary disease) (4) Paroxysmal A-fib (5) Pacemaker (6) Protein-calorie malnutrition, severe (7) KELVIN (obstructive sleep apnea) (8) CAD (coronary artery disease) (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 heart rate controlled h/h stable inflammatory markers are rising on Cefepime CXR: increasing haziness and edema, most likely fluids pt received 4 units of prbc this admission so far check h/h in am telemetry bed symptomatic treatment titrate fio2 to sat of 92% titrate cardiac meds. Kelly Mejia MD Dec 17, 2019 12:49
[2019-12-17] MEDS ORDERED: NS 275ml ONE (13:14)
[2019-12-17] MEDS ORDERED: Tubing IV Secondary IV ONE (13:14)
--- NOTE | 2019-12-17 14:16 | Internal Med Progress Note ---
Subjective Physician Name Antonio Adrian Attending Physician Antonio Adrian MD Current Medications Medications (Trade) Dose Ordered Sig/Escobar Route PRN Reason Start Time Stop Time Status Last Admin Dose Admin Acetaminophen (Tylenol) 650 mg Q4H PRN ORAL fever 12/11/19 18:45 01/10/20 18:44 Amiodarone HCl (Cordarone) 200 mg DAILY ORAL 12/12/19 09:00 03/11/20 08:59 12/17/19 09:08 Cefepime HCl 1 gm/ Dextrose 55 ml @ 110 mls/hr Q24H IVPB 12/12/19 13:00 12/19/19 12:59 12/16/19 13:25 Dextrose (Dextrose 50%) 25 ml Q30M PRN IV Hypoglycemia 12/11/19 18:45 03/10/20 18:44 Dextrose (Dextrose 50%) 50 ml Q30M PRN IV Hypoglycemia 12/11/19 18:45 03/10/20 18:44 Digoxin (Lanoxin) 0.125 mg DAILY ORAL 12/15/19 09:00 03/14/20 08:59 12/17/19 09:08 Gabapentin (Neurontin) 300 mg THREE TIMES A DAY ORAL 12/12/19 09:00 01/11/20 08:59 12/17/19 09:08 Metoprolol Tartrate (Lopressor) 50 mg EVERY 12 HOURS ORAL 12/11/19 21:00 03/10/20 20:59 12/17/19 09:08 Ondansetron HCl (Zofran) 4 mg Q6H PRN IVP Nausea & Vomiting 12/11/19 18:45 01/10/20 18:44 Polyethylene Glycol (Miralax) 17 gm HSPRN PRN ORAL Constipation 12/11/19 18:45 01/10/20 18:44 Vancomycin HCl (Vanco pharmacy to dose) 1 ea DAILY PRN MISC Per rx protocol 12/12/19 10:45 01/11/20 10:44 Vancomycin HCl 1 gm/Dextrose 275 ml @ 183.708 mls/hr Q24H IVPB 12/13/19 12:00 12/18/19 11:59 12/17/19 12:03 Zolpidem Tartrate (Ambien) 5 mg HSPRN PRN ORAL Insomnia 12/11/19 18:45 12/18/19 18:44 Allergies: Coded Allergies: No Known Allergies (Unverified , 04/24/18) Subjective awake, alert, responsive, denies any chest pain or shortness of breath, hemoglobin: 8.4 Objective Last Vital Signs Date Time Temp Pulse Resp B/P (MAP) Pulse Ox O2 Delivery O2 Flow Rate FiO2 12/17/19 12:00 Nasal Cannula 2.0 12/17/19 12:00 97.2 61 17 101/59 (73) 95 12/17/19 09:13 28 Laboratory Tests Test 12/16/19 17:16 12/17/19 02:50 12/17/19 04:00 POC Whole Blood Glucose 152 MG/DL (74-106) H White Blood Count 5.2 K/UL (4.8-10.8) Red Blood Count 2.82 M/UL (4.20-5.40) L Hemoglobin 8.4 G/DL (12.0-16.0) L Hematocrit 26.5 % (37.0-47.0) L Mean Corpuscular Volume 94 FL (80-99) Mean Corpuscular Hemoglobin 29.8 PG (27.0-31.0) Mean Corpuscular Hemoglobin Concent 31.8 G/DL (32.0-36.0) L Red Cell Distribution Width 17.7 % (11.6-14.8) H Platelet Count 110 K/UL (150-450) L Mean Platelet Volume 12.5 FL (6.5-10.1) H Neutrophils (%) (Auto) 68.5 % (45.0-75.0) Lymphocytes (%) (Auto) 22.8 % (20.0-45.0) Monocytes (%) (Auto) 3.8 % (1.0-10.0) Eosinophils (%) (Auto) 0.4 % (0.0-3.0) Basophils (%) (Auto) 4.5 % (0.0-2.0) H Sodium Level 138 MMOL/L (136-145) Potassium Level 4.2 MMOL/L (3.5-5.1) Chloride Level 107 MMOL/L (98-107) Carbon Dioxide Level 28 MMOL/L (21-32) Anion Gap 3 mmol/L (5-15) L Blood Urea Nitrogen 18 mg/dL (7-18) Creatinine 0.8 MG/DL (0.55-1.30) Estimat Glomerular Filtration Rate > 60 mL/min (>60) Glucose Level 83 MG/DL (74-106) Calcium Level 7.6 MG/DL (8.5-10.1) L Stool Occult Blood Pending Intake and Output 12/16/19 12/17/19 19:00 07:00 Intake Total 920 ml 120 ml Output Total 650 ml 700 ml Balance 270 ml -580 ml Intake Oral 920 ml 120 ml Output Urine Total 650 ml 700 ml # Bowel Movements 3 2 Objective PHYSICAL EXAMINATION:. GENERAL: awake and responsive, very pale, very chronically ill-appearing, cachectic. HEAD AND NECK: Pupils are equal and reactive to light. Extraocular movements are intact. Neck was supple. No JVD. LUNGS: Good air entry. No wheezing or rales. Decreased in bases. HEART: S1, S2. Regular rhythm. No murmur or gallops. ABDOMEN: Soft, nondistended, and nontender. Positive bowel sounds. EXTREMITIES: No cyanosis, clubbing, or edema. NEUROLOGIC: Cranial nerves II through XII grossly intact. The patient moving all the extremities. Gait was not assessed due to the patient's status. RECTAL: Refused and deferred. GENITOURINARY: Refused and deferred. PSYCHIATRIC: Mood and affect is intact. Assessment/Plan Assessment/Plan ASSESSMENT: 1. Severe anemia, most likely secondary to myelodysplastic syndrome and myelofibrosis. 2. Hypotension, possible due to dehydration as well as profound anemia; however, cannot rule out underlying sepsis or dehydration. 3. Chronic atrial fibrillation. 4. History of polycythemia vera. 5. History of JAK2 mutation. 6. Myelofibrosis and myelodysplasia. 7. Hypertension. 8. Coronary artery disease. 9. Dyslipidemia. 10. Congestive heart failure, chronic. 11. History of right hemothorax, status post of video-assisted thoracostomy exploration and surgery on 07/02/2019. 12. Sick sinus syndrome, status post pacemaker. 13. Failure to thrive. 14. Severe protein-calorie malnutrition. PLAN: 1. Transfer to Telemetry Unit. 2. S/P transfusion [address] 3[address]. Mejia=Pulmonary Critical Care 4. Dr. River Freitas = Cardiology Electrophysiology. 5. Code status: Full Code, 6. DVT prophylaxis: Heparin subcutaneous. 7. out of bed to the chair, PT Mobility. Antonio Adrian MD Dec 17, 2019 14:16
[2019-12-17] MEDS: Cefepime HCl 1 GM in D5W 55 ML IVPB SCH (14:27)
[2019-12-17 16:00] VITALS: BP 101/54
--- NOTE | 2019-12-17 16:28 | Consultation ---
History of Present Illness General Date patient seen: Dec 17, 2019 Chief Complaint: Fever Present Illness HPI 79 y/o F with hx of HTN, JAK2 mutation/Polychtemia vera, sp KELI, anemia, FTT/severe malnutrition, peripheral neuropathy, CHF, pAfib, KELVIN, CAD, CVA/TIA, SSS sp PPM 2010, MDS, hemothorax sp VATS 07/02/19 and generator change 2018 presented to ED on 12/11/19 with fatigue, fever, weakness. Upon admission was found to have Hgb of 3.3 Denied dysuria, hematuria, hemoptysis, hematochezia, fall Of note, patient was admitted here on June-July 2019 for anemnia, R side effusion and rib fracture. Allergies: Coded Allergies: No Known Allergies (Unverified , 04/24/18) Medication History Scheduled Amiodarone Hcl* (Pacerone*), 200 MG ORAL DAILY, (Reported) Furosemide* (Lasix*), 20 MG ORAL DAILY Gabapentin* (Gabapentin*), 300 MG ORAL THREE TIMES A DAY, (Reported) Metoprolol Tartrate* (Metoprolol Tartrate*), 50 MG ORAL EVERY 12 HOURS [Digoxin], 0.125 MG ORAL DAILY Scheduled PRN Acetaminophen* (Tylenol Extra Strength*), 500 MG ORAL Q6H PRN for For Pain, (Reported) Petrolatum,White/Lanolin (Vitamin A & D Ointment), 113 GM TP for dry skin, (Reported) Miscellaneous Medications Menthol/Zinc Oxide (Calmoseptine Ointment), 3.5 GM TP, (Reported) Patient History Healthcare decision maker Resuscitation status Advanced Directive on File Patient History Narrative Pmhx: as above Shx: The patient does not smoke or drink alcohol. Lives at home with her niece with a very supportive family, and her son is very involved in her care. Fhx: non contributory Physical Exam Physical Exam Narrative GENERAL: The patient is awake and responsive, very pale, very chronically ill-appearing, cachectic. HEAD AND NECK: Pupils are equal and reactive to light. Extraocular movements are intact. Neck was supple. No JVD. LUNGS: Good air entry. No wheezing or rales. Decreased in bases. HEART: S1, S2. Regular rhythm. No murmur or gallops. ABDOMEN: Soft, nondistended, and nontender. Positive bowel sounds. EXTREMITIES: No cyanosis, clubbing, or edema. NEUROLOGIC: Cranial nerves II through XII grossly intact. The patient moving all the extremities. Gait was not assessed due to the patient's status. Last 24 Hour Vital Signs Date Time Temp Pulse Resp B/P (MAP) Pulse Ox O2 Delivery O2 Flow Rate FiO2 12/17/19 12:00 Nasal Cannula 2.0 12/17/19 12:00 97.2 61 17 101/59 (73) 95 12/17/19 11:47 61 12/17/19 09:13 99 Nasal Cannula 2.0 28 12/17/19 09:08 67 12/17/19 09:08 67 101/61 12/17/19 08:00 97.5 67 18 101/61 (74) 99 12/17/19 08:00 Nasal Cannula 2.0 12/17/19 07:42 67 12/17/19 04:00 Nasal Cannula 2.0 12/17/19 04:00 99.1 71 18 123/64 (83) 100 12/17/19 03:29 66 12/17/19 00:00 97.5 64 20 96/59 (71) 96 12/17/19 00:00 Nasal Cannula 2.0 12/16/19 23:48 64 12/16/19 20:43 60 99/50 12/16/19 20:30 98 Nasal Cannula 2.0 28 12/16/19 20:00 96.8 60 19 105/51 (69) 98 12/16/19 20:00 Nasal Cannula 2.0 12/16/19 19:06 60 12/16/19 16:00 61 12/16/19 16:00 Nasal Cannula 2.0 12/16/19 16:00 96.0 62 20 106/60 (75) 100 Intake and Output 12/16/19 12/17/19 19:00 07:00 Intake Total 920 ml 120 ml Output Total 650 ml 700 ml Balance 270 ml -580 ml Intake Oral 920 ml 120 ml Output Urine Total 650 ml 700 ml # Bowel Movements 3 2 Laboratory Tests Test 12/16/19 17:16 12/17/19 02:50 12/17/19 04:00 POC Whole Blood Glucose 152 MG/DL (74-106) H White Blood Count 5.2 K/UL (4.8-10.8) Red Blood Count 2.82 M/UL (4.20-5.40) L Hemoglobin 8.4 G/DL (12.0-16.0) L Hematocrit 26.5 % (37.0-47.0) L Mean Corpuscular Volume 94 FL (80-99) Mean Corpuscular Hemoglobin 29.8 PG (27.0-31.0) Mean Corpuscular Hemoglobin Concent 31.8 G/DL (32.0-36.0) L Red Cell Distribution Width 17.7 % (11.6-14.8) H Platelet Count 110 K/UL (150-450) L Mean Platelet Volume 12.5 FL (6.5-10.1) H Neutrophils (%) (Auto) 68.5 % (45.0-75.0) Lymphocytes (%) (Auto) 22.8 % (20.0-45.0) Monocytes (%) (Auto) 3.8 % (1.0-10.0) Eosinophils (%) (Auto) 0.4 % (0.0-3.0) Basophils (%) (Auto) 4.5 % (0.0-2.0) H Sodium Level 138 MMOL/L (136-145) Potassium Level 4.2 MMOL/L (3.5-5.1) Chloride Level 107 MMOL/L (98-107) Carbon Dioxide Level 28 MMOL/L (21-32) Anion Gap 3 mmol/L (5-15) L Blood Urea Nitrogen 18 mg/dL (7-18) Creatinine 0.8 MG/DL (0.55-1.30) Estimat Glomerular Filtration Rate > 60 mL/min (>60) Glucose Level 83 MG/DL (74-106) Calcium Level 7.6 MG/DL (8.5-10.1) L Stool Occult Blood Pending Height (Feet): 5 Height (Inches): 6.00 Weight (Pounds): 110 Medications Current Medications Medications (Trade) Dose Ordered Sig/Escobar Route PRN Reason Start Time Stop Time Status Last Admin Dose Admin Acetaminophen (Tylenol) 650 mg Q4H PRN ORAL fever 12/11/19 18:45 01/10/20 18:44 Amiodarone HCl (Cordarone) 200 mg DAILY ORAL 12/12/19 09:00 03/11/20 08:59 12/17/19 09:08 Cefepime HCl 1 gm/ Dextrose 55 ml @ 110 mls/hr Q24H IVPB 12/12/19 13:00 12/19/19 12:59 12/17/19 14:27 Dextrose (Dextrose 50%) 25 ml Q30M PRN IV Hypoglycemia 12/11/19 18:45 03/10/20 18:44 Dextrose (Dextrose 50%) 50 ml Q30M PRN IV Hypoglycemia 12/11/19 18:45 03/10/20 18:44 Digoxin (Lanoxin) 0.125 mg DAILY ORAL 12/15/19 09:00 03/14/20 08:59 12/17/19 09:08 Gabapentin (Neurontin) 300 mg THREE TIMES A DAY ORAL 12/12/19 09:00 01/11/20 08:59 12/17/19 14:26 Metoprolol Tartrate (Lopressor) 50 mg EVERY 12 HOURS ORAL 12/11/19 21:00 03/10/20 20:59 12/17/19 09:08 Ondansetron HCl (Zofran) 4 mg Q6H PRN IVP Nausea & Vomiting 12/11/19 18:45 01/10/20 18:44 Polyethylene Glycol (Miralax) 17 gm HSPRN PRN ORAL Constipation 12/11/19 18:45 01/10/20 18:44 Vancomycin HCl (Vanco pharmacy to dose) 1 ea DAILY PRN MISC Per rx protocol 12/12/19 10:45 01/11/20 10:44 Vancomycin HCl 1 gm/Dextrose 275 ml @ 183.708 mls/hr Q24H IVPB 12/13/19 12:00 12/18/19 11:59 12/17/19 12:03 Zolpidem Tartrate (Ambien) 5 mg HSPRN PRN ORAL Insomnia 12/11/19 18:45 12/18/19 18:44 Assessment/Plan Assessment/Plan: Abx: IV Vancomycin 12/11- Cefepime 12/11- Levaquin x1 12/10 Assessment: COVID19 neg x1 -12/10 rapid COVID PCR neg Afebrile No leukocytosis -u/a no pyuria; ucx neg B/l pleural effusions Pulmonary edema Ro probable PNA -12/13 CXRL New/increased bilateral pleural effusions, since prior study 12/11/2019. Worsening mid and lower lung interstitial and airspace disease -12/10 CXR: Chronic appearing interstitial prominence. Hazy mostly upper lobe parenchymal opacities bilaterally, may reflect mild pulmonary edema. Acute on chronic anemia Thrombocytopenia - -08/06/18 sp EGD: Normal upper endoscopy, status post biopsy. -path: mild chronic gastritis, no H. pylori identified ANN MARIE, mild -SP hemothorax 2ry to rib fractures due to fall -sp VATS 07/02/19 CVA/TIA, FTT/severe malnutrition pAfib hx of rib fractures Sinus node dysfunction s/p PPM (battery exchange July 2018) s/p KELI GERD JAK2 mutation/Polychtemia vera MDS HLD MDD peripheral neuropathy NSTEMI s/p normal cardiac catheterization 2019 HTN KELVIN dCHF Plan: -Dc empiric IV Vancomycin #6 -Empiric Cefepime #6/7 -f/u cx -Monitor CBC/CMP, temperatures Thank you for this consultation. Will continue to follow along with you. Discussed with Alejandrina Gibson M.D. Dec 17, 2019 16:28
--- NOTE | 2019-12-17 18:32 | Cardiac Electrophysiology PN ---
Assessment/Plan Assessment/Plan 1. Weakness due to profound anemia with hemoglobin of 3. S/P 4 units of blood transfusion. The patient has myelofibrosis. On the previous admission also, the patient's hemoglobin was only 4 and received multiple units of blood transfusion. 2. Status post [employer] pacemaker in 2011 and generator change in 2019 by me with normal function. 3. Paroxysmal atrial fibrillation with RVR on amiodarone 200 mg daily, metoprolol 50 mg b.i.d. and digoxin 0.125 mg daily Dig level is 1.5. Off anticoagulation for recurrent bleeding and profound anemia. 4. Hypertension, continue metoprolol. 5. History of polycythemia vera. 6. Myelofibrosis. 7. History of pulmonary hypertension. 8. History of hemothorax, status post VATS DW RN Subjective Subjective Had 4 units of PRBC. Developed atrial fib with RVR 140s on 12/14/19. HR better after 0.25 iv Digoxin and Dig level is 1.5 Confused. Objective Last 24 Hour Vital Signs Date Time Temp Pulse Resp B/P (MAP) Pulse Ox O2 Delivery O2 Flow Rate FiO2 12/17/19 16:00 97.5 60 18 101/54 (70) 94 12/17/19 15:40 61 12/17/19 12:00 Nasal Cannula 2.0 12/17/19 12:00 97.2 61 17 101/59 (73) 95 12/17/19 11:47 61 12/17/19 09:13 99 Nasal Cannula 2.0 28 12/17/19 09:08 67 12/17/19 09:08 67 101/61 12/17/19 08:00 97.5 67 18 101/61 (74) 99 12/17/19 08:00 Nasal Cannula 2.0 12/17/19 07:42 67 12/17/19 04:00 Nasal Cannula 2.0 12/17/19 04:00 99.1 71 18 123/64 (83) 100 12/17/19 03:29 66 12/17/19 00:00 97.5 64 20 96/59 (71) 96 12/17/19 00:00 Nasal Cannula 2.0 12/16/19 23:48 64 12/16/19 20:43 60 99/50 12/16/19 20:30 98 Nasal Cannula 2.0 28 12/16/19 20:00 96.8 60 19 105/51 (69) 98 12/16/19 20:00 Nasal Cannula 2.0 12/16/19 19:06 60 Intake and Output 12/16/19 12/17/19 19:00 07:00 Intake Total 920 ml 120 ml Output Total 650 ml 700 ml Balance 270 ml -580 ml Intake Oral 920 ml 120 ml Output Urine Total 650 ml 700 ml # Bowel Movements 3 2 Laboratory Tests Test 12/17/19 02:50 12/17/19 04:00 White Blood Count 5.2 K/UL (4.8-10.8) Red Blood Count 2.82 M/UL (4.20-5.40) L Hemoglobin 8.4 G/DL (12.0-16.0) L Hematocrit 26.5 % (37.0-47.0) L Mean Corpuscular Volume 94 FL (80-99) Mean Corpuscular Hemoglobin 29.8 PG (27.0-31.0) Mean Corpuscular Hemoglobin Concent 31.8 G/DL (32.0-36.0) L Red Cell Distribution Width 17.7 % (11.6-14.8) H Platelet Count 110 K/UL (150-450) L Mean Platelet Volume 12.5 FL (6.5-10.1) H Neutrophils (%) (Auto) 68.5 % (45.0-75.0) Lymphocytes (%) (Auto) 22.8 % (20.0-45.0) Monocytes (%) (Auto) 3.8 % (1.0-10.0) Eosinophils (%) (Auto) 0.4 % (0.0-3.0) Basophils (%) (Auto) 4.5 % (0.0-2.0) H Sodium Level 138 MMOL/L (136-145) Potassium Level 4.2 MMOL/L (3.5-5.1) Chloride Level 107 MMOL/L (98-107) Carbon Dioxide Level 28 MMOL/L (21-32) Anion Gap 3 mmol/L (5-15) L Blood Urea Nitrogen 18 mg/dL (7-18) Creatinine 0.8 MG/DL (0.55-1.30) Estimat Glomerular Filtration Rate > 60 mL/min (>60) Glucose Level 83 MG/DL (74-106) Calcium Level 7.6 MG/DL (8.5-10.1) L Stool Occult Blood Pending Objective HEAD AND NECK: No JVD. LUNGS: Clear. CARDIOVASCULAR: Regular S1 and S2 with no gallop. ABDOMEN: Soft. EXTREMITIES: No pitting edema. River Freitas MD Dec 17, 2019 18:32
[2019-12-17 20:00] VITALS: BP 117/58
[2019-12-18] VITALS: BP 106/60
[2019-12-18 04:00] VITALS: BP 105/51
[2019-12-18 08:00] VITALS: BP 109/50
[2019-12-18] MEDS: Metoprolol Tartrate 50mg tab ORAL SCH ×2 (09:00→11:21)
[2019-12-18] MEDS: Amiodarone 200mg tab ORAL SCH ×2 (09:00→11:21)
[2019-12-18] MEDS: Digoxin 0.125mg tab ORAL SCH (09:51)
[2019-12-18 12:00] VITALS: BP 105/50
--- NOTE | 2019-12-18 12:35 | Pulmonology Progress Note ---
Subjective ROS Limited/Unobtainable: No Constitutional: Reports: no symptoms HEENT: Repors: no symptoms Respiratory: Reports: no symptoms Allergies: Coded Allergies: No Known Allergies (Unverified , 04/24/18) Objective Last 24 Hour Vital Signs Date Time Temp Pulse Resp B/P (MAP) Pulse Ox O2 Delivery O2 Flow Rate FiO2 12/18/19 11:21 69 109/50 12/18/19 09:51 69 12/18/19 08:00 61 12/18/19 08:00 97.3 69 18 109/50 (69) 99 12/18/19 04:00 64 12/18/19 04:00 97.9 65 18 105/51 (69) 95 12/18/19 00:00 98.2 63 18 106/60 (75) 100 12/18/19 00:00 66 12/17/19 21:49 62 121/58 12/17/19 21:35 12/17/19 21:00 Nasal Cannula 2.0 12/17/19 20:00 60 12/17/19 20:00 97.7 67 20 117/58 (77) 100 12/17/19 19:22 98 Nasal Cannula 2.0 28 12/17/19 16:00 97.5 60 18 101/54 (70) 94 12/17/19 15:40 61 Intake and Output 12/17/19 12/18/19 19:00 07:00 Intake Total 860 ml Output Total 1725 ml 500 ml Balance -865 ml -500 ml Intake Oral 860 ml Output Urine Total 1725 ml 500 ml # Voids 3 # Bowel Movements 1 General Appearance: cachetic HEENT: normocephalic, atraumatic Respiratory: chest wall non-tender, lungs clear Breasts: no masses Cardiovascular: normal peripheral pulses, normal rate, regular rhythm Abdomen: normal bowel sounds, soft, non tender, no organomegaly Genitourinary: normal external genitalia Extremities: no cyanosis, no edema Skin: no lesions Neurologic: 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 adjuster II-XII grossly normal, no motor/sensory deficits, normal mood/affect Musculoskeletal: normal muscle bulk Laboratory Tests 12/17/19 18:37: POC Whole Blood Glucose 112H 12/18/19 01:01: POC Whole Blood Glucose 119H 12/18/19 11:51: POC Whole Blood Glucose 84 Current Medications Medications (Trade) Dose Ordered Sig/Escobar Route PRN Reason Start Time Stop Time Status Last Admin Dose Admin Acetaminophen (Tylenol) 650 mg Q4H PRN ORAL fever 12/11/19 18:45 01/10/20 18:44 Amiodarone HCl (Cordarone) 200 mg DAILY ORAL 12/12/19 09:00 03/11/20 08:59 12/18/19 11:21 Cefepime HCl 1 gm/ Dextrose 55 ml @ 110 mls/hr Q24H IVPB 12/12/19 13:00 12/19/19 12:59 12/17/19 14:27 Dextrose (Dextrose 50%) 25 ml Q30M PRN IV Hypoglycemia 12/11/19 18:45 03/10/20 18:44 Dextrose (Dextrose 50%) 50 ml Q30M PRN IV Hypoglycemia 12/11/19 18:45 03/10/20 18:44 Digoxin (Lanoxin) 0.125 mg DAILY ORAL 12/15/19 09:00 03/14/20 08:59 12/18/19 09:51 Gabapentin (Neurontin) 300 mg THREE TIMES A DAY ORAL 12/12/19 09:00 01/11/20 08:59 12/18/19 09:52 Metoprolol Tartrate (Lopressor) 50 mg EVERY 12 HOURS ORAL 12/11/19 21:00 03/10/20 20:59 12/18/19 11:21 Ondansetron HCl (Zofran) 4 mg Q6H PRN IVP Nausea & Vomiting 12/11/19 18:45 01/10/20 18:44 Polyethylene Glycol (Miralax) 17 gm HSPRN PRN ORAL Constipation 12/11/19 18:45 01/10/20 18:44 Zolpidem Tartrate (Ambien) 5 mg HSPRN PRN ORAL Insomnia 12/11/19 18:45 12/18/19 18:44 12/17/19 21:53 Assessment/Plan Problems: (1) Severe anemia (2) Myelofibrosis (3) COPD (chronic obstructive pulmonary disease) (4) Paroxysmal A-fib (5) Pacemaker (6) Protein-calorie malnutrition, severe (7) KELVIN (obstructive sleep apnea) (8) CAD (coronary artery disease) (9) JAK2 [id number] mutation Assessment/Plan TElemetry reviewed heart rate controlled h/h stable inflammatory markers are rising on Cefepime CXR: increasing haziness and edema, most likely fluids pt received 4 units of prbc this admission so far check h/h in am telemetry bed symptomatic treatment titrate fio2 to sat of 92% titrate cardiac meds. Kelly Mejia MD Dec 18, 2019 12:35
--- NOTE | 2019-12-18 12:53 | Cardiac Electrophysiology PN ---
Assessment/Plan Assessment/Plan 1. Weakness due to profound anemia with hemoglobin of 3. S/P 4 units of blood transfusion. The patient has myelofibrosis. On the previous admission also, the patient's hemoglobin was only 4 and received multiple units of blood transfusion. 2. Status post [employer] pacemaker in 2011 and generator change in 2019 by me with normal function. 3. Paroxysmal atrial fibrillation with RVR on amiodarone 200 mg daily, metoprolol 50 mg b.i.d. and digoxin 0.125 mg daily Dig level is 1.5. Off anticoagulation for recurrent bleeding and profound anemia. Repeat Dig level 4. Hypertension, continue metoprolol. 5. History of polycythemia vera. 6. Myelofibrosis. 7. History of pulmonary hypertension. 8. History of hemothorax, status post VATS DW RN Subjective Subjective Had 4 units of PRBC. Developed atrial fib with RVR 140s on 12/14/19. HR better after 0.25 iv Digoxin and Dig level is 1.5 Confused. Rate controlled Objective Last 24 Hour Vital Signs Date Time Temp Pulse Resp B/P (MAP) Pulse Ox O2 Delivery O2 Flow Rate FiO2 12/18/19 11:21 69 109/50 12/18/19 09:51 69 12/18/19 09:00 Nasal Cannula 2.0 12/18/19 08:00 61 12/18/19 08:00 97.3 69 18 109/50 (69) 99 12/18/19 04:00 64 12/18/19 04:00 97.9 65 18 105/51 (69) 95 12/18/19 00:00 98.2 63 18 106/60 (75) 100 12/18/19 00:00 66 12/17/19 21:49 62 121/58 12/17/19 21:35 12/17/19 21:00 Nasal Cannula 2.0 12/17/19 20:00 60 12/17/19 20:00 97.7 67 20 117/58 (77) 100 12/17/19 19:22 98 Nasal Cannula 2.0 28 12/17/19 16:00 97.5 60 18 101/54 (70) 94 12/17/19 15:40 61 Intake and Output 12/17/19 12/18/19 19:00 07:00 Intake Total 860 ml Output Total 1725 ml 500 ml Balance -865 ml -500 ml Intake Oral 860 ml Output Urine Total 1725 ml 500 ml # Voids 3 # Bowel Movements 1 Laboratory Tests Test 12/17/19 18:37 12/18/19 01:01 12/18/19 11:51 POC Whole Blood Glucose 112 MG/DL (74-106) H 119 MG/DL (74-106) H 84 MG/DL (74-106) Objective HEAD AND NECK: No JVD. LUNGS: Clear. CARDIOVASCULAR: Regular S1 and S2 with no gallop. ABDOMEN: Soft. EXTREMITIES: No pitting edema. River Freitas MD Dec 18, 2019 12:53
--- NOTE | 2019-12-18 13:53 | Infectious Diseases Prog Note ---
Assessment/Plan Assessment: COVID19 neg x1 -12/10 rapid COVID PCR neg Afebrile No leukocytosis -u/a no pyuria; ucx neg -Bcx neg B/l pleural effusions Pulmonary edema Ro probable PNA -12/13 CXRL New/increased bilateral pleural effusions, since prior study 12/11/2019. Worsening mid and lower lung interstitial and airspace disease -12/10 CXR: Chronic appearing interstitial prominence. Hazy mostly upper lobe parenchymal opacities bilaterally, may reflect mild pulmonary edema. Acute on chronic anemia Thrombocytopenia - -08/06/18 sp EGD: Normal upper endoscopy, status post biopsy. -path: mild chronic gastritis, no H. pylori identified ANN MARIE, mild -SP hemothorax 2ry to rib fractures due to fall -sp VATS 07/02/19 CVA/TIA, FTT/severe malnutrition pAfib hx of rib fractures Sinus node dysfunction s/p PPM (battery exchange July 2018) s/p KELI GERD JAK2 mutation/Polychtemia vera MDS HLD MDD peripheral neuropathy NSTEMI s/p normal cardiac catheterization 2019 HTN KELVIN dCHF Plan: -Empiric Cefepime #7/7 -12/16 SP IV Vancomycin #6 -12/10 SP LEvaquin x 1 -f/u cx -Monitor CBC/CMP, temperatures Thank you for this consultation. Will continue to follow along with you. Discussed with RN. Subjective Allergies: Coded Allergies: No Known Allergies (Unverified , 04/24/18) afebrile at 2l NC Bcx neg Objective Last 24 Hour Vital Signs Date Time Temp Pulse Resp B/P (MAP) Pulse Ox O2 Delivery O2 Flow Rate FiO2 12/18/19 12:00 60 12/18/19 12:00 96.3 59 18 105/50 (68) 98 12/18/19 11:21 69 109/50 12/18/19 09:51 69 12/18/19 09:00 Nasal Cannula 2.0 12/18/19 08:00 61 12/18/19 08:00 97.3 69 18 109/50 (69) 99 12/18/19 04:00 64 12/18/19 04:00 97.9 65 18 105/51 (69) 95 12/18/19 00:00 98.2 63 18 106/60 (75) 100 12/18/19 00:00 66 12/17/19 21:49 62 121/58 12/17/19 21:35 12/17/19 21:00 Nasal Cannula 2.0 12/17/19 20:00 60 12/17/19 20:00 97.7 67 20 117/58 (77) 100 12/17/19 19:22 98 Nasal Cannula 2.0 28 12/17/19 16:00 97.5 60 18 101/54 (70) 94 12/17/19 15:40 61 Height (Feet): 5 Height (Inches): 6.00 Weight (Pounds): 110 GENERAL: The patient is awake and responsive, very pale, very chronically ill-appearing, cachectic. HEAD AND NECK: Pupils are equal and reactive to light. Extraocular movements are intact. Neck was supple. No JVD. LUNGS: Good air entry. No wheezing or rales. Decreased in bases. HEART: S1, S2. Regular rhythm. No murmur or gallops. ABDOMEN: Soft, nondistended, and nontender. Positive bowel sounds. EXTREMITIES: No cyanosis, clubbing, or edema. NEUROLOGIC: Cranial nerves II through XII grossly intact. The patient moving all the extremities. Gait was not assessed due to the patient's status. Laboratory Tests Test 12/17/19 18:37 12/18/19 01:01 12/18/19 11:51 POC Whole Blood Glucose 112 MG/DL (74-106) H 119 MG/DL (74-106) H 84 MG/DL (74-106) Current Medications Medications (Trade) Dose Ordered Sig/Escobar Route PRN Reason Start Time Stop Time Status Last Admin Dose Admin Acetaminophen (Tylenol) 650 mg Q4H PRN ORAL fever 12/11/19 18:45 01/10/20 18:44 Amiodarone HCl (Cordarone) 200 mg DAILY ORAL 12/12/19 09:00 03/11/20 08:59 12/18/19 11:21 Cefepime HCl 1 gm/ Dextrose 55 ml @ 110 mls/hr Q24H IVPB 12/12/19 13:00 12/19/19 12:59 12/17/19 14:27 Dextrose (Dextrose 50%) 25 ml Q30M PRN IV Hypoglycemia 12/11/19 18:45 03/10/20 18:44 Dextrose (Dextrose 50%) 50 ml Q30M PRN IV Hypoglycemia 12/11/19 18:45 03/10/20 18:44 Digoxin (Lanoxin) 0.125 mg DAILY ORAL 12/15/19 09:00 03/14/20 08:59 12/18/19 09:51 Gabapentin (Neurontin) 300 mg THREE TIMES A DAY ORAL 12/12/19 09:00 01/11/20 08:59 12/18/19 09:52 Metoprolol Tartrate (Lopressor) 50 mg EVERY 12 HOURS ORAL 12/11/19 21:00 03/10/20 20:59 12/18/19 11:21 Ondansetron HCl (Zofran) 4 mg Q6H PRN IVP Nausea & Vomiting 12/11/19 18:45 01/10/20 18:44 Polyethylene Glycol (Miralax) 17 gm HSPRN PRN ORAL Constipation 12/11/19 18:45 01/10/20 18:44 Zolpidem Tartrate (Ambien) 5 mg HSPRN PRN ORAL Insomnia 12/11/19 18:45 12/18/19 18:44 12/17/19 21:53 Alejandrina Arrieta M.D. Dec 18, 2019 13:53
--- NOTE | 2019-12-18 14:25 | Internal Med Progress Note ---
Subjective Physician Name Antonio Adrian Attending Physician Antonio Adrian MD Current Medications Medications (Trade) Dose Ordered Sig/Escobar Route PRN Reason Start Time Stop Time Status Last Admin Dose Admin Acetaminophen (Tylenol) 650 mg Q4H PRN ORAL fever 12/11/19 18:45 01/10/20 18:44 Amiodarone HCl (Cordarone) 200 mg DAILY ORAL 12/12/19 09:00 03/11/20 08:59 12/18/19 11:21 Cefepime HCl 1 gm/ Dextrose 55 ml @ 110 mls/hr Q24H IVPB 12/12/19 13:00 12/19/19 12:59 12/17/19 14:27 Dextrose (Dextrose 50%) 25 ml Q30M PRN IV Hypoglycemia 12/11/19 18:45 03/10/20 18:44 Dextrose (Dextrose 50%) 50 ml Q30M PRN IV Hypoglycemia 12/11/19 18:45 03/10/20 18:44 Digoxin (Lanoxin) 0.125 mg DAILY ORAL 12/15/19 09:00 03/14/20 08:59 12/18/19 09:51 Gabapentin (Neurontin) 300 mg THREE TIMES A DAY ORAL 12/12/19 09:00 01/11/20 08:59 12/18/19 09:52 Metoprolol Tartrate (Lopressor) 50 mg EVERY 12 HOURS ORAL 12/11/19 21:00 03/10/20 20:59 12/18/19 11:21 Ondansetron HCl (Zofran) 4 mg Q6H PRN IVP Nausea & Vomiting 12/11/19 18:45 01/10/20 18:44 Polyethylene Glycol (Miralax) 17 gm HSPRN PRN ORAL Constipation 12/11/19 18:45 01/10/20 18:44 Zolpidem Tartrate (Ambien) 5 mg HSPRN PRN ORAL Insomnia 12/11/19 18:45 12/18/19 18:44 12/17/19 21:53 Allergies: Coded Allergies: No Known Allergies (Unverified , 04/24/18) Subjective awake, alert, responsive, denies any chest pain or shortness of breath. Objective Last Vital Signs Date Time Temp Pulse Resp B/P (MAP) Pulse Ox O2 Delivery O2 Flow Rate FiO2 12/18/19 12:00 60 12/18/19 12:00 96.3 18 105/50 (68) 98 12/18/19 09:00 Nasal Cannula 2.0 12/17/19 19:22 28 Laboratory Tests Test 12/17/19 18:37 12/18/19 01:01 12/18/19 11:51 POC Whole Blood Glucose 112 MG/DL (74-106) H 119 MG/DL (74-106) H 84 MG/DL (74-106) Intake and Output 12/17/19 12/18/19 19:00 07:00 Intake Total 860 ml Output Total 1725 ml 500 ml Balance -865 ml -500 ml Intake Oral 860 ml Output Urine Total 1725 ml 500 ml # Voids 3 # Bowel Movements 1 Objective PHYSICAL EXAMINATION:. GENERAL: awake and responsive, very pale, very chronically ill-appearing, cachectic. HEAD AND NECK: Pupils are equal and reactive to light. Extraocular movements are intact. Neck was supple. No JVD. LUNGS: Good air entry. No wheezing or rales. Decreased in bases. HEART: S1, S2. Regular rhythm. No murmur or gallops. ABDOMEN: Soft, nondistended, and nontender. Positive bowel sounds. EXTREMITIES: No cyanosis, clubbing, or edema. NEUROLOGIC: Cranial nerves II through XII grossly intact. The patient moving all the extremities. Gait was not assessed due to the patient's status. RECTAL: Refused and deferred. GENITOURINARY: Refused and deferred. PSYCHIATRIC: Mood and affect is intact. Assessment/Plan Assessment/Plan ASSESSMENT: 1. Severe anemia, most likely secondary to myelodysplastic syndrome and myelofibrosis. 2. Hypotension, possible due to dehydration as well as profound anemia; however, cannot rule out underlying sepsis or dehydration. 3. Chronic atrial fibrillation. 4. History of polycythemia vera. 5. History of JAK2 mutation. 6. Myelofibrosis and myelodysplasia. 7. Hypertension. 8. Coronary artery disease. 9. Dyslipidemia. 10. Congestive heart failure, chronic. 11. History of right hemothorax, status post of video-assisted thoracostomy exploration and surgery on 07/02/2019. 12. Sick sinus syndrome, status post pacemaker. 13. Failure to thrive. 14. Severe protein-calorie malnutrition. PLAN: 1. Transfer to Telemetry Unit. 2. S/P transfusion [address] Mejia=Pulmonary Critical Care 4. Dr. River Freitas = Cardiology Electrophysiology. 5. Code status: Full Code, 6. DVT prophylaxis: Heparin subcutaneous. 7. out of bed to the chair, PT Mobility. Discharge home today with home health follow-up with my office in 1 week, will monitor laboratory as out patient. Antonio Adrian MD Dec 18, 2019 14:25
[2019-12-18 16:00] VITALS: BP 104/66
--- NOTE | 2019-12-21 09:32 | Discharge Summary ---
Discharge Summary Discharge Summary _ DATE OF ADMISSION: 12/11/2019 DATE OF DISCHARGE: 12/18/2019 ADMITTING MD: Dr. Antonio Adrian CONSULTANTS: Dr. Alejandrina Mejia BRIEF HOSPITAL COURSE: Patient is an 79-year-old very unfortunate female with past medical history significant for chronic atrial fibrillation, polycythemia vera, history of CVA with TIA, obstructive sleep apnea, coronary artery disease, dyslipidemia, congestive heart failure, right hemothorax in June 2019, sick sinus syndrome status post pacemaker, total abdominal hysterectomy, history of video-assisted thoracostomy exploration surgery on July 02, 2019, as well as history of JAK2 mutation, myelofibrosis and myelodysplasia, who presented to the emergency department complaining of fatigue, weakness as well as fever. The patient became very debilitated and weak, she was not able to stay at home, she had failure to thrive. Shortly after initial evaluation in the emergency department, patient was found to have profound anemia with hemoglobin of 3. Patient was admitted due to profound anemia, most likely secondary to myeloproliferative disorder and myelofibrosis. Patient was admitted to stepdown unit. She was given blood transfusion. She was continued on amiodarone, metoprolol and digoxin due to paroxysmal atrial fibrillation. On 12/13, patient developed atrial fibrillation with RVR in the 140s rate. She was given IV digoxin. Dig level was 1.5. Patient is off anticoagulation due to recurrent bleeding and profound anemia. Chest x-ray showed increased worsening interstitial and airspace disease. She was continued empirically on cefepime. Blood count has been stable. She received total of 4 units packed RBC blood transfusion. Stool OB negative. She was eventually cleared for discharge home with home health. FINAL DIAGNOSES: Severe anemia, most likely secondary to myelodysplastic syndrome and myelofibrosis Hypotension, possible due to dehydration as well as profound anemia Paroxysmal atrial fibrillation with RVR Polycythemia vera JAK2 mutation Myelofibrosis and myelodysplasia Hypertension Coronary artery disease Dyslipidemia Chronic congestive heart failure History of right hemothorax status post VATS Sick sinus syndrome, status post pacemaker Severe protein calorie malnutrition DISPOSITION: Patient was discharged home with home health. DISCHARGE MEDICATIONS: Refer to Discharge Medication List. DISCHARGE INSTRUCTIONS: Follow-up in a week. I have been assigned to complete a discharge summary on this account, I was not involved with the patient's management.--MARGE Escobar Jacqueline Robles NP Dec 21, 2019 09:32
== END 2019-12-18 18:12 | disposition home health service (06) | DRG 811 ==
LOC: EDBD 15:18 → EMR 15:30 → EDBEDREQ 16:06 → 2W 16:11 → EDBEDREQSVC 17:45 → EDBEDREQ 17:45 → 2E 12-17 16:30
PROC: 30233N1 Transfusion of Nonautologous Red Blood Cells into Peripheral Vein, Percutaneous Approach (ICD-10-PCS; principal; 2019-12-12)
DX: D46.Z Other myelodysplastic syndromes (principal); E43 Unspecified severe protein-calorie malnutrition; N17.9 Acute kidney failure, unspecified; I48.0 Paroxysmal atrial fibrillation; D75.81 Myelofibrosis; I95.9 Hypotension, unspecified; J44.9 Chronic obstructive pulmonary disease, unspecified; G47.33 Obstructive sleep apnea (adult) (pediatric); I25.10 Atherosclerotic heart disease of native coronary artery without angina pectoris; E78.5 Hyperlipidemia, unspecified; I11.0 Hypertensive heart disease with heart failure; I50.9 Heart failure, unspecified; Z95.0 Presence of cardiac pacemaker; R62.7 Adult failure to thrive; Z86.73 Personal history of transient ischemic attack (TIA), and cerebral infarction without residual deficits; D45 Polycythemia vera; Z15.89 Genetic susceptibility to other disease; I25.2 Old myocardial infarction; I27.20 Pulmonary hypertension, unspecified; E86.0 Dehydration; K21.9 Gastro-esophageal reflux disease without esophagitis; G62.9 Polyneuropathy, unspecified
CPT/HCPCS: 36415; 71045; 80048; 80053; 80162; 80202; 81003; 82270; 82378; 82550; 82553; 82607; 82728; 82746; 82962; 83540; 83550; 83605; 83615; 83690; 83735; 83880; 84100; 84443; 84484; 85007; 85025; 85044; 85060; 85379; 85610; 85651; 85730; 86140; 86850; 86900; 86901; 86920; 87040; 87086; 93005; 93306; 93970; 96361; 96365; 96375; 99291; J7030; U0002

== ENCOUNTER 2020-01-28 14:04 | Inpatient (IN) | payer MEDICARE, OTHER ==
[~2020-01-28] VITALS: Ht 157.5 cm; Wt 49.9 kg
--- NOTE | 2020-01-28 14:29 | Emergency Room Report ---
History of Present Illness Present Illness HPI Disclaimer: Please note that this report is being documented using DRAGON technology. This can lead to erroneous entry secondary to incorrect interpretation by the dictating instrument. HPI: 79-year-old very unfortunate female with past medical history significant for chronic atrial fibrillation, polycythemia vera, history of CVA with TIA, obstructive sleep apnea, coronary artery disease, dyslipidemia, conge stive heart failure, right hemothorax in June 2019, sick sinus syndrome status post pacemaker, total abdominal hysterectomy, myelofibrosis and myelodysplasia, who presented to the emergency department complaining of fatigue, weakness. Patient is a very poor historian and history taken from previous admission in addition to EMS. Apparently patient has been generally weak for the past few days. No report of fever. Patient complains of body aches. Denies chest pain. Allergies: Coded Allergies: No Known Allergies (Unverified , 04/24/18) COVID-19 Screening Contact w/high risk pt: No Recent Travel to affected area: No Experienced COVID-19 symptoms?: No Patient History Reviewed Nursing Documentation: PMH: Agreed; PSxH: Agreed Nursing Documentation-PMH Hx Cardiac Problems: Yes - CHF Hx Hypertension: Yes Hx Pacemaker: Yes Hx Asthma: No Hx COPD: No Hx Diabetes: No Hx Cancer: No Hx Gastrointestinal Problems: Yes Hx Dialysis: No Hx Neurological Problems: Yes Hx Cerebrovascular Accident: No Hx Transient Ischemic Attacks: Yes Hx Seizures: No Hx Headaches: Yes Hx Numbness: Yes Hx Weakness: Yes - Generalized weakness Review of Systems All Other Systems: negative except mentioned in HPI Physical Exam Sp02 EP Interpretation: reviewed, normal General Appearance: no apparent distress, cachetic Head: normocephalic, atraumatic Eyes: bilateral eye PERRL, bilateral eye EOMI ENT: hearing grossly normal, moist mucus membranes Neck: full range of motion, supple Respiratory: lungs clear, normal breath sounds, no rhonchi, no respiratory distress, no retraction, no wheezing Cardiovascular #1: normal peripheral pulses, regular rate, rhythm, no murmur Gastrointestinal: non tender, soft, non-distended, no guarding Neurologic: alert, no focal defects, other - Oriented x1 Skin: warm/dry, pallor Procedures Critical Care Time Critical Care Time Critical care is made on this patient due to presentation with anemia requiring my acute intervention. Critical care time is approximately 35 minutes and excludes procedures Medical Decision Making Diagnostic Impression: Primary Impression: Symptomatic anemia Additional Impression: Generalized weakness ER Course MDM: Differential diagnosis included but not limited to anemia, dehydration, electrolyte disturbance to name a few Clinical course-patient has a history of anemia and myelodysplasia. Laboratory studies were sent. Laboratory studies demonstrated evidence of anemia with a hemoglobin of 3.5. Transfusion was ordered. Patient will require admission for further observation and treatment. Testing was negative Labs - Laboratory Tests Test 01/28/20 14:47 White Blood Count 8.8 K/UL (4.8-10.8) Red Blood Count 1.21 M/UL (4.20-5.40) L Hemoglobin 3.6 G/DL (12.0-16.0) *L Hematocrit 10.1 % (37.0-47.0) L Mean Corpuscular Volume 84 FL (80-99) Mean Corpuscular Hemoglobin 30.1 PG (27.0-31.0) Mean Corpuscular Hemoglobin Concent 36.0 G/DL (32.0-36.0) Red Cell Distribution Width 22.1 % (11.6-14.8) H Platelet Count 269 K/UL (150-450) Mean Platelet Volume 13.5 FL (6.5-10.1) H Neutrophils (%) (Auto) % (45.0-75.0) Lymphocytes (%) (Auto) % (20.0-45.0) Monocytes (%) (Auto) % (1.0-10.0) Eosinophils (%) (Auto) % (0.0-3.0) Basophils (%) (Auto) % (0.0-2.0) Differential Total Cells Counted 100 Neutrophils % (Manual) 73 % (45-75) Lymphocytes % (Manual) 20 % (20-45) Monocytes % (Manual) 3 % (1-10) Eosinophils % (Manual) 0 % (0-3) Basophils % (Manual) 3 % (0-2) H Band Neutrophils 1 % (0-8) Nucleated Red Blood Cells 1 /100 WBC Platelet Estimate Adequate Platelet Morphology Giant Platelets Occasional Polychromasia 1+ Anisocytosis 3+ Prothrombin Time 15.2 SEC (9.30-11.50) H Prothrombin Time INR 1.4 (0.9-1.1) H Activated Partial Thromboplast Time 28 SEC (23-33) Sodium Level 139 MMOL/L (136-145) Potassium Level 5.0 MMOL/L (3.5-5.1) Chloride Level 106 MMOL/L (98-107) Carbon Dioxide Level 23 MMOL/L (21-32) Anion Gap 11 mmol/L (5-15) Blood Urea Nitrogen 40 mg/dL (7-18) H Creatinine 1.2 MG/DL (0.55-1.30) Estimated Glomerular Filtration Rate 43.1 mL/min (>60) Glucose Level 123 MG/DL (74-106) H Calcium Level 8.8 MG/DL (8.5-10.1) Total Bilirubin 1.4 MG/DL (0.2-1.0) H Direct Bilirubin 0.5 MG/DL (0.0-0.3) H Aspartate Amino Transferase (AST) 67 U/L (15-37) H Alanine Aminotransferase (ALT) 50 U/L (12-78) Alkaline Phosphatase 69 U/L (46-116) Total Protein 7.3 G/DL (6.4-8.2) Albumin 3.2 G/DL (3.4-5.0) L Globulin 4.1 g/dL Albumin/Globulin Ratio 0.8 (1.0-2.7) L Microbiology Date/Time Source Procedure Growth Status 01/28/20 15:06 Nasopharynx SARS-CoV-2 RdRp Gene Assay - Final Complete Admission to the telemetry floor under Dr. Adrian EKG Diagnostic Results Rate: normal Rhythm: NSR Other Impression Left axis deviation, nonspecific EKG Rhythm Strip Diag. Results EP Interpretation: yes Rate: 70 Rhythm: NSR Status: unchanged Disposition: ADMITTED INPATIENT Condition: Critical Gee Soliman M.D. Jan 28, 2020 14:29
[2020-01-28 14:40] VITALS: BP 102/49
--- NOTE | 2020-01-28 15:13 | NUR ---
ED Nurse Note: Patient was BIBA from home due to generalized weakness and body pain, no fever, hx of anemia. Patient presented pale, weak, AAO x3, O 2 sat 86% on RA was placed on 2L via NC.
[2020-01-28 15:28] LABS: HEMATOCRIT 10.1 % (37.0-47.0); MEAN CORPUSCULAR VOLUME 84 FL (80-99); PLATELET COUNT 269 K/UL (150-450); RED BLOOD COUNT 1.21 M/UL (4.20-5.40); RED CELL DISTRIBUTION WIDTH 22.1 % (11.6-14.8); WHITE BLOOD COUNT 8.8 K/UL (4.8-10.8)
[2020-01-28 15:33] LABS: HEMOGLOBIN 3.6 G/DL (12.0-16.0)
[2020-01-28 15:41] LABS: INR 1.4 (0.9-1.1)
[2020-01-28 15:46] LABS: CALCIUM 8.8 MG/DL (8.5-10.1); CREATININE 1.2 MG/DL (0.55-1.30)
[2020-01-28 16:02] LABS: ALBUMIN 3.2 G/DL (3.4-5.0); ALBUMIN/GLOBULIN RATIO 0.8 (1.0-2.7); BILIRUBIN,TOTAL 1.4 MG/DL (0.2-1.0)
[2020-01-28 16:14] LABS: BILIRUBIN,DIRECT 0.5 MG/DL (0.0-0.3)
[2020-01-28 16:25] VITALS: BP 103/56
[2020-01-28] MEDS ORDERED: Dextrose 50% 25ml Syringe IV PRN (16:30)
[2020-01-28] MEDS ORDERED: Zolpidem 5mg tab ORAL PRN (16:30)
[2020-01-28] MEDS ORDERED: Miralax 17gm pkt ORAL PRN (16:30)
--- NOTE | 2020-01-28 16:46 | Diagnostic Imaging Report ---
Indication: Shortness of breath Technique: One view of the chest Comparison: 12/14/2019 Findings: There is a small right pleural effusion. Since smaller than on the prior exam. There is interstitial prominence and diffuse hazy parenchymal opacity. The heart size is upper limits normal. Previously demonstrated left pleural effusion there is no longer evident. Left chest pacemaker is again demonstrated Impression: Interstitial prominence and diffuse hazy opacity, may reflect edema versus infiltrates Small right pleural effusion Other findings as noted
--- NOTE | 2020-01-28 17:56 | NUR ---
ED Nurse Note: started blood transfusion 1 unit prbc per md order. will monitor closely for adverse reactions.
--- NOTE | 2020-01-28 18:04 | NUR ---
ED Nurse Note: gave report to brook grullon.
--- NOTE | 2020-01-28 18:06 | NUR ---
NURSE NOTES: Report is taken from CATALOGUE CLERK Ildefonso, waiting for pt.
--- NOTE | 2020-01-28 18:13 | NUR ---
ED Nurse Note: patient admitted to tele unit for symptomatic anemia. pt transferred by bed with all belongings running 1 unit prbc @ 200ml/hr. marcello chavarria noted. Addendum: 01/28/20 at 1834 by KITHO pt transported at 1834
--- NOTE | 2020-01-28 18:50 | NUR ---
NURSE NOTES: Received pt from BEAMING INSPECTOR Ildefonso, pt is awake and alert, pale and very weak, pt has NC 2lit, pt has intact iv access RAC 20G PRBC is running well. pt is on continues heart monitoring NSR HR 69. skin is intact. no complain of pain at this moment. V/S: BP 109/57 RR 20 T 97.7 HR 69 SPO2 98%. all belongings are with pt. All needs attended, bed is locked and is in the lowest position, call light within easy reach. will continue to monitor.
--- NOTE | 2020-01-28 19:16 | NUR ---
NURSE HAND-OFF REPORT: Important Events on Shift: Patient Status: Diet: Pending Orders: Pending Results/Labs: Pending MD notification: Latest Vital Signs: Temperature 97.5 , Pulse 73 , B/P 101 /55 , Respiratory Rate 18 , O2 SAT 100 , Nasal Cannula, O2 Flow Rate 3.0 . Vital Sign Comment: EKG Rhythm: Rhythm change?: MD Notified?: - MD Response: Latest Yepez Fall Score: 85 Fall Risk: Safety Measures: Call light , Bed Alarm , Side Rails , Bed position . Fall Precautions: Report given to . Pt is awake and stable, no stress noted, endorsed plan of care, endorsed to F/U blood transfusion ans start admission.
--- NOTE | 2020-01-28 19:20 | NUR ---
NURSE NOTES: Important Events on Shift: Admitted to tele 2E - per Nguyễn. Pt to receive 4 bags PRBCs, first bag complete. Admitted for anemia, h/h 3.6/10.1. VS WNL. Pt denies pain. No signs or symptoms of pain or distress noted at this time. Will start plan of care and close monitoring. Patient Status: stable Diet: regular Pending Orders: continue PRBC transfusion Pending Results/Labs: cbc, cmp, tsh, lipid panel Pending MD notification: none Latest Vital Signs: Temperature 97.5 , Pulse 73 , B/P 101 /55 , Respiratory Rate 18 , O2 SAT 100 , Nasal Cannula, O2 Flow Rate 2.0 . Vital Sign Comment: stable, afebrile EKG Rhythm: SR Rhythm change?: N MD Notified?: - MD Response: Latest Yepez Fall Score: 40 Fall Risk: Medium Risk Safety Measures: Call light Within Reach, Bed Alarm Zone 1, Side Rails Side Rails x3, Bed position Low and Locked. Fall Precautions: YES Yellow Socks YES Yellow Gown YES Door Sign YES Patient Fall Education YES
--- NOTE | 2020-01-28 21:35 | NUR ---
NURSE NOTES: Second of four PRBCs started @2134. VS WNL. No signs or symptoms of transfusion reaction, distress, or pain. Will continue to monitor closely.
--- NOTE | 2020-01-28 22:46 | History & Physical ---
History and Physical History & Physicial -[id number] Antonio Adrian MD Jan 28, 2020 22:46
--- NOTE | 2020-01-29 00:45 | NUR ---
NURSE NOTES: Third of four PRBCs started @ 0045. Pt denies pain, afebrile, no signs or symptoms of transfusion reaction, distress, or pain noted at this time. Transfusion tolerated well. Will continue to monitor closely.
[2020-01-29 04:00] VITALS: BP 119/66
[2020-01-29 07:12] LABS: HEMATOCRIT 17.5 % (37.0-47.0); MEAN CORPUSCULAR VOLUME 82 FL (80-99); PLATELET COUNT 207 K/UL (150-450); RED BLOOD COUNT 2.13 M/UL (4.20-5.40); RED CELL DISTRIBUTION WIDTH 14.1 % (11.6-14.8); WHITE BLOOD COUNT 6.9 K/UL (4.8-10.8)
[2020-01-29 07:19] LABS: HEMOGLOBIN 6.4 G/DL (12.0-16.0)
--- NOTE | 2020-01-29 07:30 | NUR ---
NURSE HAND-OFF REPORT: Important Events on Shift: Continue PRBCs (4th of four bags). Pt new admit per Nguyễn. Patient Status: stable Diet: regular Pending Orders: none Pending Results/Labs: cbc, tsh, lipid panel, cmp Pending MD notification: Hgb 6.4 Latest Vital Signs: Temperature 96.2 , Pulse 73 , B/P 119 /66 , Respiratory Rate 18 , O2 SAT 93 , Nasal Cannula, O2 Flow Rate 2.0 . Vital Sign Comment: EKG Rhythm: Sinus Rhythm Rhythm change?: N MD Notified?: - MD Response: Latest Yepez Fall Score: 40 Fall Risk: Medium Risk Safety Measures: Call light Within Reach, Bed Alarm Zone 1, Side Rails Side Rails x3, Bed position Low and Locked. Fall Precautions: yes Yellow Socks yes Yellow Gown yes Door Sign yes Patient Fall Education yes Report given to Maryjo Marcus RN.
[2020-01-29 07:37] LABS: ALANINE AMINOTRANSFERASE 47 U/L (12-78); ALBUMIN 2.6 G/DL (3.4-5.0); ALBUMIN/GLOBULIN RATIO 0.8 (1.0-2.7); ALKALINE PHOSPHATASE 57 U/L (46-116); ANION GAP 8 mmol/L (5-15); ASPARTATE AMINO TRANSFERASE 43 U/L (15-37); BILIRUBIN,TOTAL 1.8 MG/DL (0.2-1.0); BLOOD UREA NITROGEN 35 mg/dL (7-18); CALCIUM 8.2 MG/DL (8.5-10.1); CARBON DIOXIDE 23 MMOL/L (21-32); CHLORIDE 112 MMOL/L (98-107); CHOLESTEROL 66 MG/DL (< 200); CREATININE 0.8 MG/DL (0.55-1.30); HDL CHOLESTEROL 14 MG/DL (40-60); SODIUM 143 MMOL/L (136-145); TRIGLYCERIDES 59 MG/DL (30-150)
[2020-01-29 07:39] LABS: BILIRUBIN,DIRECT 0.6 MG/DL (0.0-0.3)
--- NOTE | 2020-01-29 07:39 | NUR ---
CASE MANAGEMENT:REVIEW BIBA FROM HOME CC: WEAKNESS AND BODY PAIN SI: SYMPTOMATIC ANEMIA 98.3 82 17 105/55 86% ON RA H/H-3.6/10.1 BUN+40 IS: PLACED ON 2L/NC 1L NS BOLUS 3 UNIT PRBC'S CXR : TO TELEMETRY DCP: FROM HOME
--- NOTE | 2020-01-29 07:42 | NUR ---
NURSE NOTES: Received report from IRA Silveira. Pt ist stable on 2LPM NC, unlabored and even breathing. Pt DVT prophylaxis is SCD but refused per licensing worker RN, will reassess. Pt has no s/s or complaint of distress at this time. Pt skin intact. IV on RAC 20g running 4/4 unit of PRBC that began at 0500 per IRA Silveira. Pt bed low and locked, call light in reach and bed alarm on. Pt verbalized understanding to call for help.
--- NOTE | 2020-01-29 07:55 | NUR ---
NURSE NOTES: Blood finished, vitals WNL, no adverese reaction. /4 transfused per restaurant shift leader IRA Silveira. tubing taken down to lab.
[2020-01-29 08:00] VITALS: BP 117/75
--- NOTE | 2020-01-29 08:54 | NUR ---
NURSE NOTES: Notified Dr Mejia of Pt Hgb 6.4. awaiting call back. Pt is stable at this time.
--- NOTE | 2020-01-29 10:46 | NUR ---
RD ASSESSMENT & RECOMMENDATIONS SEE CARE ACTIVITY FOR COMPLETE ASSESSMENT DAILY ESTIMATED NEEDS: Needs based on underweight, wound/ 50kg 30-35 kcals/kg 8384-5580 total kcals 1-1.5 g protein/kg 50-75 g total protein 25-30 mL/kg 4870-8108 total fluid mLs NUTRITION DIAGNOSIS: Increased kcal/prot needs R/T underweight status as evidenced by pt @ 88% IBW w/ BMI of 18.4. CURRENT DIET:REGULAR PO DIET RECOMMENDATIONS: Regular/ texture as tolerated ADDITIONAL RECOMMENDATIONS: 1) Standing wt or calibrated bedscale wt for accurate CBW 2) Ensure Enlive once daily w/ fair intake (350kcal/20g prot in 1 bottle) Monitor need for more Add snacks to trays TID . . .
--- NOTE | 2020-01-29 11:08 | Consultation ---
History of Present Illness General Date patient seen: Jan 29, 2020 Chief Complaint: Generalized Weakness Present Illness HPI 79 year-old female with PHMx of JAK2 mutation, polycythemia vera > 10 years, myelofibrosis and myelodysplasia HTN, CVA/TIA, atrial fib, pacemaker presented to ED for evaluation of increased weakness. She was found to be profoundly anemic and is admitted to receive blood transfusion. Allergies: Coded Allergies: No Known Allergies (Unverified , 04/24/18) Medication History Scheduled Amiodarone Hcl* (Pacerone*), 200 MG ORAL DAILY, (Reported) Furosemide* (Lasix*), 20 MG ORAL DAILY Gabapentin* (Gabapentin*), 300 MG ORAL THREE TIMES A DAY, (Reported) Metoprolol Tartrate* (Metoprolol Tartrate*), 50 MG ORAL EVERY 12 HOURS [Digoxin], 0.125 MG ORAL DAILY Scheduled PRN Acetaminophen* (Tylenol Extra Strength*), 500 MG ORAL Q6H PRN for For Pain, (Reported) Petrolatum,White/Lanolin (Vitamin A & D Ointment), 113 GM TP for dry skin, (Reported) Miscellaneous Medications Menthol/Zinc Oxide (Calmoseptine Ointment), 3.5 GM TP, (Reported) Patient History Healthcare decision maker Resuscitation status Advanced Directive on File Past Medical/Surgical History Past Medical/Surgical History: (1) Symptomatic anemia (2) COPD (chronic obstructive pulmonary disease) (3) CAD (coronary artery disease) (4) JAK2 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 mutation (5) Myelofibrosis Review of Systems Constitutional: Reports: malaise, weakness Physical Exam General Appearance: cachetic, thin Lines, tubes and drains: peripheral HEENT: normocephalic, atraumatic Neck: non-tender, normal alignment, supple Respiratory/Chest: chest wall non-tender, lungs clear Breasts: no masses Cardiovascular/Chest: normal peripheral pulses Abdomen: non tender, soft Genitourinary/Rectal: normal genital exam Extremities: normal range of motion Last 24 Hour Vital Signs Date Time Temp Pulse Resp B/P (MAP) Pulse Ox O2 Delivery O2 Flow Rate FiO2 01/29/20 09:00 Nasal Cannula 2.0 01/29/20 08:00 97.7 78 17 117/75 (89) 95 01/29/20 08:00 66 01/29/20 04:00 73 12/18/20 04:00 96.2 73 18 119/66 (83) 93 01/29/20 01:14 Nasal Cannula 2.0 01/28/20 18:13 97.5 73 18 101/55 100 Nasal Cannula 3.0 01/28/20 18:11 97.5 69 18 01/28/20 17:56 97.7 72 18 01/28/20 16:25 98.2 73 17 103/56 100 Nasal Cannula 3.0 01/28/20 14:40 82 17 01/28/20 14:40 98.2 78 17 102/49 01/28/20 14:19 98.2 82 17 105/55 (72) Intake and Output 01/28/20 01/29/20 19:00 07:00 Intake Total 100 ml Balance 100 ml Intake Other 100 ml # Voids 1 1 # Bowel Movements 1 Laboratory Tests Test 01/28/20 14:47 01/29/20 04:45 White Blood Count 8.8 K/UL (4.8-10.8) 6.9 K/UL (4.8-10.8) Red Blood Count 1.21 M/UL (4.20-5.40) L 2.13 M/UL (4.20-5.40) L Hemoglobin 3.6 G/DL (12.0-16.0) *L 6.4 G/DL (12.0-16.0) Hematocrit 10.1 % (37.0-47.0) L 17.5 % (37.0-47.0) #L Mean Corpuscular Volume 84 FL (80-99) 82 FL (80-99) Mean Corpuscular Hemoglobin 30.1 PG (27.0-31.0) 30.0 PG (27.0-31.0) Mean Corpuscular Hemoglobin Concent 36.0 G/DL (32.0-36.0) 36.6 G/DL (32.0-36.0) H Red Cell Distribution Width 22.1 % (11.6-14.8) H 14.1 % (11.6-14.8) Platelet Count 269 K/UL (150-450) 207 K/UL (150-450) Mean Platelet Volume 13.5 FL (6.5-10.1) H 15.0 FL (6.5-10.1) H Neutrophils (%) (Auto) % (45.0-75.0) % (45.0-75.0) Lymphocytes (%) (Auto) % (20.0-45.0) % (20.0-45.0) Monocytes (%) (Auto) % (1.0-10.0) % (1.0-10.0) Eosinophils (%) (Auto) % (0.0-3.0) % (0.0-3.0) Basophils (%) (Auto) % (0.0-2.0) % (0.0-2.0) Differential Total Cells Counted 100 Neutrophils % (Manual) 73 % (45-75) Pending Lymphocytes % (Manual) 20 % (20-45) Pending Monocytes % (Manual) 3 % (1-10) Eosinophils % (Manual) 0 % (0-3) Basophils % (Manual) 3 % (0-2) H Band Neutrophils 1 % (0-8) Nucleated Red Blood Cells 1 /100 WBC Platelet Estimate Adequate Pending Platelet Morphology Pending Giant Platelets Occasional Polychromasia 1+ Anisocytosis 3+ Prothrombin Time 15.2 SEC (9.30-11.50) H Prothromb Time International Ratio 1.4 (0.9-1.1) H Activated Partial Thromboplast Time 28 SEC (23-33) Sodium Level 139 MMOL/L (136-145) 143 MMOL/L (136-145) Potassium Level 5.0 MMOL/L (3.5-5.1) 4.0 MMOL/L (3.5-5.1) Chloride Level 106 MMOL/L (98-107) 112 MMOL/L (98-107) H Carbon Dioxide Level 23 MMOL/L (21-32) 23 MMOL/L (21-32) Anion Gap 11 mmol/L (5-15) 8 mmol/L (5-15) Blood Urea Nitrogen 40 mg/dL (7-18) H 35 mg/dL (7-18) H Creatinine 1.2 MG/DL (0.55-1.30) 0.8 MG/DL (0.55-1.30) Estimat Glomerular Filtration Rate 43.1 mL/min (>60) > 60 mL/min (>60) Glucose Level 123 MG/DL (74-106) H 81 MG/DL (74-106) Calcium Level 8.8 MG/DL (8.5-10.1) 8.2 MG/DL (8.5-10.1) L Total Bilirubin 1.4 MG/DL (0.2-1.0) H 1.8 MG/DL (0.2-1.0) H Direct Bilirubin 0.5 MG/DL (0.0-0.3) H 0.6 MG/DL (0.0-0.3) H Aspartate Amino Transf (AST/SGOT) 67 U/L (15-37) H 43 U/L (15-37) H Alanine Aminotransferase (ALT/SGPT) 50 U/L (12-78) 47 U/L (12-78) Alkaline Phosphatase 69 U/L (46-116) 57 U/L (46-116) Total Protein 7.3 G/DL (6.4-8.2) 6.0 G/DL (6.4-8.2) L Albumin 3.2 G/DL (3.4-5.0) L 2.6 G/DL (3.4-5.0) L Globulin 4.1 g/dL 3.4 g/dL Albumin/Globulin Ratio 0.8 (1.0-2.7) L 0.8 (1.0-2.7) L Triglycerides Level 59 MG/DL (30-150) Cholesterol Level 66 MG/DL (< 200) LDL Cholesterol 40 mg/dL (<100) HDL Cholesterol 14 MG/DL (40-60) L Cholesterol/HDL Ratio 4.7 (3.3-4.4) H Thyroid Stimulating Hormone (TSH) 4.108 uiU/mL (0.358-3.740) Microbiology Date/Time Source Procedure Growth Status 01/28/20 15:06 Nasopharynx SARS-CoV-2 RdRp Gene Assay - Final Complete Height (Feet): 5 Height (Inches): 2.00 Weight (Pounds): 110 Medications Current Medications Medications (Trade) Dose Ordered Sig/Escobar Route PRN Reason Start Time Stop Time Status Last Admin Dose Admin Acetaminophen (Tylenol) 650 mg Q4H PRN ORAL fever 01/28/20 16:30 02/27/20 16:29 Dextrose (Dextrose 50%) 25 ml Q30M PRN IV Hypoglycemia 01/28/20 16:30 02/27/20 16:18 Dextrose (Dextrose 50%) 50 ml Q30M PRN IV hypoglycemia 01/28/20 16:30 04/27/20 16:29 Ondansetron HCl (Zofran) 4 mg Q6H PRN IVP Nausea & Vomiting 01/28/20 16:30 02/27/20 16:29 Polyethylene Glycol (Miralax) 17 gm HSPRN PRN ORAL Constipation 01/28/20 16:30 02/27/20 16:29 Zolpidem Tartrate (Ambien) 5 mg HSPRN PRN ORAL Insomnia 01/28/20 16:30 02/04/20 16:29 Assessment/Plan Problem List: (1) Severe anemia ICD Codes: D64.9 - Anemia, unspecified SNOMED: 598713105 (2) Myelofibrosis ICD Codes: D75.81 - Myelofibrosis SNOMED: 86623431 (3) COPD (chronic obstructive pulmonary disease) ICD Codes: J44.9 - Chronic obstructive pulmonary disease, unspecified SNOMED: 72319542 (4) JAK2 V617F mutation ICD Codes: Z15.89 - Genetic susceptibility to other disease SNOMED: 22341567 (5) Polycythemia vera ICD Codes: D45 - Polycythemia vera SNOMED: 048838238 (6) Protein-calorie malnutrition, severe ICD Codes: E43 - Unspecified severe protein-calorie malnutrition SNOMED: 533958744, 184658304, 940163003 Assessment/Plan: prbc prn iv fluids respiratory treatment check electrolytes dvt prophylaxis symptomatic treatment keep in monitored bed Kelly Mejia MD Jan 29, 2020 11:08
[2020-01-29 12:00] VITALS: BP_SYST 117; BP_SYST 121; BP_DIAS 63; BP_DIAS 75
--- NOTE | 2020-01-29 13:35 | NUR ---
NURSE NOTES: Dr Mejia ordered 2 more bags of PRBC for Pt Hgb of 6.4. Received blood from blood bank, checked w/ dairy lab technician, no clots or discoloration. Pt vitals taken prior to administration of blood, double checked blood and Pt match with DAVE Shine. Blood started at 1335. Pt has no s.s of distress or complaints at this time. This is unit 1/2 PRBC.
--- NOTE | 2020-01-29 14:03 | NUR ---
NURSE NOTES: Pt no s/s of adverse side effects. vitals WNL 15 mins after blood started. Rate increased to 125cc/hr. Pt is stable, sleeping, unlabored even breathing on 3 LPM NC.
--- NOTE | 2020-01-29 14:08 | Internal Med Progress Note ---
Subjective Physician Name Antonio Adrian Attending Physician Antonio Adrian MD Current Medications Medications (Trade) Dose Ordered Sig/Escobar Route PRN Reason Start Time Stop Time Status Last Admin Dose Admin Acetaminophen (Tylenol) 650 mg Q4H PRN ORAL fever 01/28/20 16:30 02/27/20 16:29 Dextrose (Dextrose 50%) 25 ml Q30M PRN IV Hypoglycemia 01/28/20 16:30 02/27/20 16:18 Dextrose (Dextrose 50%) 50 ml Q30M PRN IV hypoglycemia 01/28/20 16:30 04/27/20 16:29 Ondansetron HCl (Zofran) 4 mg Q6H PRN IVP Nausea & Vomiting 01/28/20 16:30 02/27/20 16:29 Polyethylene Glycol (Miralax) 17 gm HSPRN PRN ORAL Constipation 01/28/20 16:30 02/27/20 16:29 Zolpidem Tartrate (Ambien) 5 mg HSPRN PRN ORAL Insomnia 01/28/20 16:30 02/04/20 16:29 Allergies: Coded Allergies: No Known Allergies (Unverified , 04/24/18) Subjective awake, alert, responsive, no acute distress, denies any chest pain, complained about shortness of breath. Hemoglobin: 6.4 post transfusion. Objective Last Vital Signs Date Time Temp Pulse Resp B/P (MAP) Pulse Ox O2 Delivery O2 Flow Rate FiO2 01/29/20 12:00 66 01/29/20 12:00 97.5 18 121/63 (82) 95 01/29/20 09:00 Nasal Cannula 2.0 Laboratory Tests Test 01/28/20 14:47 01/29/20 04:45 White Blood Count 8.8 K/UL (4.8-10.8) 6.9 K/UL (4.8-10.8) Red Blood Count 1.21 M/UL (4.20-5.40) L 2.13 M/UL (4.20-5.40) L Hemoglobin 3.6 G/DL (12.0-16.0) *L 6.4 G/DL (12.0-16.0) Hematocrit 10.1 % (37.0-47.0) L 17.5 % (37.0-47.0) #L Mean Corpuscular Volume 84 FL (80-99) 82 FL (80-99) Mean Corpuscular Hemoglobin 30.1 PG (27.0-31.0) 30.0 PG (27.0-31.0) Mean Corpuscular Hemoglobin Concent 36.0 G/DL (32.0-36.0) 36.6 G/DL (32.0-36.0) H Red Cell Distribution Width 22.1 % (11.6-14.8) H 14.1 % (11.6-14.8) Platelet Count 269 K/UL (150-450) 207 K/UL (150-450) Mean Platelet Volume 13.5 FL (6.5-10.1) H 15.0 FL (6.5-10.1) H Neutrophils (%) (Auto) % (45.0-75.0) % (45.0-75.0) Lymphocytes (%) (Auto) % (20.0-45.0) % (20.0-45.0) Monocytes (%) (Auto) % (1.0-10.0) % (1.0-10.0) Eosinophils (%) (Auto) % (0.0-3.0) % (0.0-3.0) Basophils (%) (Auto) % (0.0-2.0) % (0.0-2.0) Differential Total Cells Counted 100 100 Neutrophils % (Manual) 73 % (45-75) 83 % (45-75) H Lymphocytes % (Manual) 20 % (20-45) 11 % (20-45) L Monocytes % (Manual) 3 % (1-10) 6 % (1-10) Eosinophils % (Manual) 0 % (0-3) 0 % (0-3) Basophils % (Manual) 3 % (0-2) H 0 % (0-2) Band Neutrophils 1 % (0-8) 0 % (0-8) Nucleated Red Blood Cells 1 /100 WBC Platelet Estimate Adequate Adequate Platelet Morphology Giant Platelets Occasional Occasional Polychromasia 1+ Anisocytosis 3+ 1+ Prothrombin Time 15.2 SEC (9.30-11.50) H Prothromb Time International Ratio 1.4 (0.9-1.1) H Activated Partial Thromboplast Time 28 SEC (23-33) Sodium Level 139 MMOL/L (136-145) 143 MMOL/L (136-145) Potassium Level 5.0 MMOL/L (3.5-5.1) 4.0 MMOL/L (3.5-5.1) Chloride Level 106 MMOL/L (98-107) 112 MMOL/L (98-107) H Carbon Dioxide Level 23 MMOL/L (21-32) 23 MMOL/L (21-32) Anion Gap 11 mmol/L (5-15) 8 mmol/L (5-15) Blood Urea Nitrogen 40 mg/dL (7-18) H 35 mg/dL (7-18) H Creatinine 1.2 MG/DL (0.55-1.30) 0.8 MG/DL (0.55-1.30) Estimat Glomerular Filtration Rate 43.1 mL/min (>60) > 60 mL/min (>60) Glucose Level 123 MG/DL (74-106) H 81 MG/DL (74-106) Calcium Level 8.8 MG/DL (8.5-10.1) 8.2 MG/DL (8.5-10.1) L Total Bilirubin 1.4 MG/DL (0.2-1.0) H 1.8 MG/DL (0.2-1.0) H Direct Bilirubin 0.5 MG/DL (0.0-0.3) H 0.6 MG/DL (0.0-0.3) H Aspartate Amino Transf (AST/SGOT) 67 U/L (15-37) H 43 U/L (15-37) H Alanine Aminotransferase (ALT/SGPT) 50 U/L (12-78) 47 U/L (12-78) Alkaline Phosphatase 69 U/L (46-116) 57 U/L (46-116) Total Protein 7.3 G/DL (6.4-8.2) 6.0 G/DL (6.4-8.2) L Albumin 3.2 G/DL (3.4-5.0) L 2.6 G/DL (3.4-5.0) L Globulin 4.1 g/dL 3.4 g/dL Albumin/Globulin Ratio 0.8 (1.0-2.7) L 0.8 (1.0-2.7) L Triglycerides Level 59 MG/DL (30-150) Cholesterol Level 66 MG/DL (< 200) LDL Cholesterol 40 mg/dL (<100) HDL Cholesterol 14 MG/DL (40-60) L Cholesterol/HDL Ratio 4.7 (3.3-4.4) H Thyroid Stimulating Hormone (TSH) 4.108 uiU/mL (0.358-3.740) Microbiology Date/Time Source Procedure Growth Status 01/28/20 15:06 Nasopharynx SARS-CoV-2 RdRp Gene Assay - Final Complete Intake and Output 01/28/20 01/29/20 19:00 07:00 Intake Total 100 ml Balance 100 ml Other 100 ml # Voids 1 1 # Bowel Movements 1 Objective PHYSICAL EXAMINATION:. GENERAL: awake and responsive, very pale, very chronically ill-appearing, cachectic. HEAD AND NECK: Pupils are equal and reactive to light. Extraocular movements are intact. Neck was supple. No JVD. LUNGS: Good air entry. No wheezing or rales. Decreased in bases. HEART: S1, S2. Regular rhythm. No murmur or gallops. pacemaker at the left side chest wall. ABDOMEN: Soft, nondistended, and nontender. Positive bowel sounds. EXTREMITIES: No cyanosis, clubbing, or edema. NEUROLOGIC: Cranial nerves II through XII grossly intact. The patient moving all the extremities. Gait was not assessed due to the patient's status. RECTAL: Refused and deferred. GENITOURINARY: Refused and deferred. PSYCHIATRIC: Mood and affect is intact. Assessment/Plan Assessment/Plan ASSESSMENT: 1. Severe anemia, most likely secondary to myelodysplastic syndrome and myelofi brosis. 2. Hypotension, possible due to dehydration as well as profound anemia; 3. Chronic atrial fibrillation. 4. History of polycythemia vera. 5. History of JAK2 mutation. 6. Myelofibrosis and myelodysplasia. 7. Hypertension. 8. Coronary artery disease. 9. Dyslipidemia. 10. Congestive heart failure, chronic. 11. History of right hemothorax, status post of video-assisted thoracostomy exploration and surgery on 07/02/2019. 12. Sick sinus syndrome, status post pacemaker. 13. Failure to thrive. 14. Severe protein-calorie malnutrition. PLAN: 1. in Telemetry Unit. 2. Transfusion PRBC. 3. Dr. Mejia=Pulmonary Critical Care 4. Dr. River Freitas = Cardiology Electrophysiology. 5. Code status: Full Code, 6. DVT prophylaxis: Heparin subcutaneous. 7. out of bed to the chair, PT Mobility 8. repeat COVID-[address] angiography chest rule out PE. Antonio Adrian MD Jan 29, 2020 14:08
--- NOTE | 2020-01-29 14:08 | NUR ---
NURSE NOTES: contacted Dr lopez regarding cardio consult for Pt 1AVB and increased HR 110-130s. awaiting call back
--- NOTE | 2020-01-29 14:17 | Consultation ---
History of Present Illness General Date patient seen: Jan 29, 2020 Reason for Hospitalization: Generalized Weakness Present Illness HPI 79-year-old very unfortunate female well known to me from prior care with past medical history significant for chronic atrial fibrillation, polycythemia vera, history of CVA with TIA, obstructive sleep apnea, coronary artery disease, dyslipidemia, congestive heart failure, right hemothorax in June 2019, sick sinus syndrome status post pacemaker, total abdominal hysterectomy, myelofibrosis and myelodysplasia, who presented to the emergency department complaining of fatigue, weakness. Patient is a very poor historian and history taken from previous admission EMR. Apparently patient has been generally weak for the past few days. No report of fever. Patient complains of body aches. Denies chest pain. surgery called to evaluate and assist with care. Allergies: Coded Allergies: No Known Allergies (Unverified , 04/24/18) COVID-19 Screening Contact w/high risk pt: No Recent Travel to affected area: No Experienced COVID-19 symptoms?: No Medication History Scheduled Amiodarone Hcl* (Pacerone*), 200 MG ORAL DAILY, (Reported) Furosemide* (Lasix*), 20 MG ORAL DAILY Gabapentin* (Gabapentin*), 300 MG ORAL THREE TIMES A DAY, (Reported) Metoprolol Tartrate* (Metoprolol Tartrate*), 50 MG ORAL EVERY 12 HOURS [Digoxin], 0.125 MG ORAL DAILY Scheduled PRN Acetaminophen* (Tylenol Extra Strength*), 500 MG ORAL Q6H PRN for For Pain, (Reported) Petrolatum,White/Lanolin (Vitamin A & D Ointment), 113 GM TP for dry skin, (Reported) Miscellaneous Medications Menthol/Zinc Oxide (Calmoseptine Ointment), 3.5 GM TP, (Reported) Patient History Healthcare decision maker Resuscitation status Advanced Directive on File Review of Systems Review of Symptoms General ROS: no weight loss or fever Psychological ROS: no depression or mood changes, no memory loss Ophthalmic ROS: no visual changes or eye irritation ENT ROS: no nasal congestion, hearing loss, dizziness Allergy and Immunology ROS: no allergic symptoms or urticaria Hematological and Lymphatic ROS: no swollen glands, unusual bleeding or bruising Endocrine ROS: no polyuria, polydipsia, weight changes, temperature intolerance Respiratory ROS: no cough, shortness of breath, or wheezing Cardiovascular ROS: no chest pain or dyspnea on exertion Gastrointestinal ROS: denies abdominal pain, bright red blood in stool. Musculoskeletal ROS: no myalgias or arthralgias Neurological ROS: no TIA or stroke symptoms Dermatological ROS: no new or changing skin lesions, rashes or pruritis Physical Exam Physical Exam General appearance: alert, cooperative, no distress, appears stated age Head: Normocephalic, without obvious abnormality, atraumatic Eyes: conjunctivae/corneas clear. PERRL, EOM's intact. Fundi benign Throat: Lips, mucosa, and tongue normal. Teeth and gums normal Neck: supple, symmetrical, trachea midline, no adenopathy, thyroid: not enlarged, symmetric, no tenderness/mass/nodules, no carotid bruit and no JVD Lungs: clear to auscultation bilaterally Heart: regular rate and rhythm, S1, S2 normal, no murmur, click, rub or gallop Abdomen: soft, non-tender. Bowel sounds normal. No masses, no organomegaly Extremities: extremities normal, atraumatic, no cyanosis or edema Pulses: 2+ and symmetric Skin: Skin color, texture, turgor normal. No rashes or lesions Neurologic: Grossly normal Last 24 Hour Vital Signs Date Time Temp Pulse Resp B/P (MAP) Pulse Ox O2 Delivery O2 Flow Rate FiO2 01/29/20 12:00 66 01/29/20 12:00 97.5 74 18 121/63 (82) 95 01/29/20 12:00 97.7 78 17 117/75 (89) 95 01/29/20 09:00 Nasal Cannula 2.0 01/29/20 08:00 97.7 78 17 117/75 (89) 95 01/29/20 08:00 66 01/29/20 04:00 73 01/29/20 04:00 96.2 73 18 119/66 (83) 93 01/29/20 01:14 Nasal Cannula 2.0 01/28/20 18:13 97.5 73 18 101/55 100 Nasal Cannula 3.0 01/28/20 18:11 97.5 69 18 01/28/20 17:56 97.7 72 18 01/28/20 16:25 98.2 73 17 103/56 100 Nasal Cannula 3.0 01/28/20 14:40 82 17 01/28/20 14:40 98.2 78 17 102/49 01/28/20 14:19 98.2 82 17 105/55 (72) Intake and Output 01/28/20 01/29/20 19:00 07:00 Intake Total 100 ml Balance 100 ml Other 100 ml # Voids 1 1 # Bowel Movements 1 Laboratory Tests Test 01/28/20 14:47 01/29/20 04:45 White Blood Count 8.8 K/UL (4.8-10.8) 6.9 K/UL (4.8-10.8) Red Blood Count 1.21 M/UL (4.20-5.40) L 2.13 M/UL (4.20-5.40) L Hemoglobin 3.6 G/DL (12.0-16.0) *L 6.4 G/DL (12.0-16.0) Hematocrit 10.1 % (37.0-47.0) L 17.5 % (37.0-47.0) #L Mean Corpuscular Volume 84 FL (80-99) 82 FL (80-99) Mean Corpuscular Hemoglobin 30.1 PG (27.0-31.0) 30.0 PG (27.0-31.0) Mean Corpuscular Hemoglobin Concent 36.0 G/DL (32.0-36.0) 36.6 G/DL (32.0-36.0) H Red Cell Distribution Width 22.1 % (11.6-14.8) H 14.1 % (11.6-14.8) Platelet Count 269 K/UL (150-450) 207 K/UL (150-450) Mean Platelet Volume 13.5 FL (6.5-10.1) H 15.0 FL (6.5-10.1) H Neutrophils (%) (Auto) % (45.0-75.0) % (45.0-75.0) Lymphocytes (%) (Auto) % (20.0-45.0) % (20.0-45.0) Monocytes (%) (Auto) % (1.0-10.0) % (1.0-10.0) Eosinophils (%) (Auto) % (0.0-3.0) % (0.0-3.0) Basophils (%) (Auto) % (0.0-2.0) % (0.0-2.0) Differential Total Cells Counted 100 100 Neutrophils % (Manual) 73 % (45-75) 83 % (45-75) H Lymphocytes % (Manual) 20 % (20-45) 11 % (20-45) L Monocytes % (Manual) 3 % (1-10) 6 % (1-10) Eosinophils % (Manual) 0 % (0-3) 0 % (0-3) Basophils % (Manual) 3 % (0-2) H 0 % (0-2) Band Neutrophils 1 % (0-8) 0 % (0-8) Nucleated Red Blood Cells 1 /100 WBC Platelet Estimate Adequate Adequate Platelet Morphology Giant Platelets Occasional Occasional Polychromasia 1+ Anisocytosis 3+ 1+ Prothrombin Time 15.2 SEC (9.30-11.50) H Prothromb Time International Ratio 1.4 (0.9-1.1) H Activated Partial Thromboplast Time 28 SEC (23-33) Sodium Level 139 MMOL/L (136-145) 143 MMOL/L (136-145) Potassium Level 5.0 MMOL/L (3.5-5.1) 4.0 MMOL/L (3.5-5.1) Chloride Level 106 MMOL/L (98-107) 112 MMOL/L (98-107) H Carbon Dioxide Level 23 MMOL/L (21-32) 23 MMOL/L (21-32) Anion Gap 11 mmol/L (5-15) 8 mmol/L (5-15) Blood Urea Nitrogen 40 mg/dL (7-18) H 35 mg/dL (7-18) H Creatinine 1.2 MG/DL (0.55-1.30) 0.8 MG/DL (0.55-1.30) Estimat Glomerular Filtration Rate 43.1 mL/min (>60) > 60 mL/min (>60) Glucose Level 123 MG/DL (74-106) H 81 MG/DL (74-106) Calcium Level 8.8 MG/DL (8.5-10.1) 8.2 MG/DL (8.5-10.1) L Total Bilirubin 1.4 MG/DL (0.2-1.0) H 1.8 MG/DL (0.2-1.0) H Direct Bilirubin 0.5 MG/DL (0.0-0.3) H 0.6 MG/DL (0.0-0.3) H Aspartate Amino Transf (AST/SGOT) 67 U/L (15-37) H 43 U/L (15-37) H Alanine Aminotransferase (ALT/SGPT) 50 U/L (12-78) 47 U/L (12-78) Alkaline Phosphatase 69 U/L (46-116) 57 U/L (46-116) Total Protein 7.3 G/DL (6.4-8.2) 6.0 G/DL (6.4-8.2) L Albumin 3.2 G/DL (3.4-5.0) L 2.6 G/DL (3.4-5.0) L Globulin 4.1 g/dL 3.4 g/dL Albumin/Globulin Ratio 0.8 (1.0-2.7) L 0.8 (1.0-2.7) L Triglycerides Level 59 MG/DL (30-150) Cholesterol Level 66 MG/DL (< 200) LDL Cholesterol 40 mg/dL (<100) HDL Cholesterol 14 MG/DL (40-60) L Cholesterol/HDL Ratio 4.7 (3.3-4.4) H Thyroid Stimulating Hormone (TSH) 4.108 uiU/mL (0.358-3.740) Microbiology Date/Time Source Procedure Growth Status 01/28/20 15:06 Nasopharynx SARS-CoV-2 RdRp Gene Assay - Final Complete Height (Feet): 5 Height (Inches): 2.00 Weight (Pounds): 110 Medications Current Medications Medications (Trade) Dose Ordered Sig/Escobar Route PRN Reason Start Time Stop Time Status Last Admin Dose Admin Acetaminophen (Tylenol) 650 mg Q4H PRN ORAL fever 01/28/20 16:30 02/27/20 16:29 Dextrose (Dextrose 50%) 25 ml Q30M PRN IV Hypoglycemia 01/28/20 16:30 02/27/20 16:18 Dextrose (Dextrose 50%) 50 ml Q30M PRN IV hypoglycemia 01/28/20 16:30 04/27/20 16:29 Ondansetron HCl (Zofran) 4 mg Q6H PRN IVP Nausea & Vomiting 01/28/20 16:30 02/27/20 16:29 Polyethylene Glycol (Miralax) 17 gm HSPRN PRN ORAL Constipation 01/28/20 16:30 02/27/20 16:29 Zolpidem Tartrate (Ambien) 5 mg HSPRN PRN ORAL Insomnia 01/28/20 16:30 02/04/20 16:29 Assessment/Plan Problem List: (1) Generalized weakness ICD Codes: R53.1 - Weakness SNOMED: 09293660 (2) Symptomatic anemia ICD Codes: D64.9 - Anemia, unspecified SNOMED: 244550426 (3) Protein-calorie malnutrition, severe ICD Codes: E43 - Unspecified severe protein-calorie malnutrition SNOMED: 765379571, 318595616, 799372186 (4) Severe anemia ICD Codes: D64.9 - Anemia, unspecified SNOMED: 403879850 (5) ACS (acute coronary syndrome) ICD Codes: I20.0 - Unstable angina SNOMED: 993354945 (6) Pyelonephritis ICD Codes: N12 - Tubulo-interstitial nephritis, not specified as acute or chronic SNOMED: 30032873 (7) CAD (coronary artery disease) ICD Codes: I25.10 - Atherosclerotic heart disease of [place] coronary artery without angina pectoris SNOMED: 62963689 (8) COPD (chronic obstructive pulmonary disease) ICD Codes: J44.9 - Chronic obstructive pulmonary disease, unspecified SNOMED: 00762139 (9) positional vertigo (10) KELVIN (obstructive sleep apnea) ICD Codes: G47.33 - Obstructive sleep apnea (adult) (pediatric) SNOMED: 80924516 (11) Peripheral neuropathy ICD Codes: G62.9 - Polyneuropathy, unspecified SNOMED: 836040577 (12) Myelofibrosis ICD Codes: D75.81 - Myelofibrosis SNOMED: 07631044 (13) JAK2 V617F mutation ICD Codes: Z15.89 - Genetic susceptibility to other disease SNOMED: 37635022 (14) UTI (urinary tract infection) ICD Codes: N39.0 - Urinary tract infection, site not specified SNOMED: 14919289 (15) Polycythemia vera ICD Codes: D45 - Polycythemia vera SNOMED: 142418678 (16) Pacemaker ICD Codes: Z95.0 - Presence of cardiac pacemaker SNOMED: 095896665 (17) Acute encephalopathy ICD Codes: G93.40 - Encephalopathy, unspecified SNOMED: 68671221, 543026987 (18) Chronic anticoagulation ICD Codes: Z79.01 - medical terminologist (current) use of anticoagulants SNOMED: 703208285 (19) RLL pneumonia ICD Codes: J18.9 - Pneumonia, unspecified organism SNOMED: 376476597 (20) Hematothorax ICD Codes: J94.2 - Hemothorax SNOMED: 43711916 (21) Thoracostomy tube in place ICD Codes: Z96.89 - Presence of other specified functional implants SNOMED: 117573208 (22) Collapse of left lung ICD Codes: J98.11 - Atelectasis SNOMED: 19096406 (23) Paroxysmal A-fib ICD Codes: I48.0 - Paroxysmal atrial fibrillation SNOMED: 124751993 (24) Anemia ICD Codes: D64.9 - Anemia, unspecified SNOMED: 885132973 (25) Abnormal LFTs Assessment & Plan: severe anemia. hx of bleeding held anticoagulation since prior right hemothorax s/p evacuation and vats transfusing prbc coags noted ddx includes possible GI hemorrhage. possible blood disorder protonix prior imaging reviewed as below abnormal lft's likely heme breakdown products thank you will follow with recs trend h/h transfuse prn Gallbladder demonstrates a gallstone. This also reported on same day CT. Sonographic Camacho's sign is negative. Common bile duct measures 5 mm in diameter. No intrahepatic biliary ductal dilatation. Liver demonstrates normal echogenicity, no focal abnormality. Portal vein and hepatic veins are patent. Pancreas is unremarkable. The spleen demonstrates a complex upper pole cyst that measures 2.7 cm in diameter. The spleen is borderline enlarged. There are bilateral pleural effusions Left kidney measures 10.2 cm in length. Right kidney measures 9.2 cm length. Both kidneys demonstrate normal echogenicity. There is no hydronephrosis. No focal abnormality . Non-aneurysmal abdominal aorta . Impression: Cholelithiasis. Negative for dilated bile ducts 2.7 cm complex upper pole splenic cyst, also reported on prior imaging studies. Bilateral pleural effusions Chest: The lungs demonstrate a mosaic perfusion pattern, which is more striking than that seen previously. Some atelectasis and consolidation is seen involving both lower lobes. This appears similar on the right, slightly more extensive on the left. There is a moderate-sized right pleural effusion which appears similar to the previous study. There is a small left pleural effusion which is new since the previous study. Previous exam demonstrated a 1.5 cm opacity in the inferior right azygoesophageal recess. This is not evident currently although could be obscured by surrounding atelectatic lung. The heart is enlarged. There is a left chest pacemaker again demonstrated. No pericardial effusion. No mediastinal or hilar mass or adenopathy. Right lower pole thyroid calcification is again demonstrated. No axillary or chest wall mass or adenopathy. There are fairly profound degenerative changes of the bilateral shoulders. There is evidence of interim healing of previously demonstrated right rib fractures, nearly but not completely healed as some fracture lines persist. There are degenerative changes of the thoracic spine noted. Abdomen pelvis: What is probably a normal appendix is demonstrated. There is extensive colonic diverticulosis. No evidence of diverticulitis. The rectum is mildly distended, mostly with gas with some stool as well. No small bowel distention or small bowel wall thickening. Numerous surgical clips are seen in the retroperitoneum and left side of the pelvis. The stomach and duodenum are unremarkable. The gallbladder contains a gallstone. No biliary ductal dilatation. The liver is mildly enlarged. The pancreas is unremarkable. The spleen is enlarged, measuring 14 cm long axis dimension. It demonstrates a complex upper pole cyst, also previously demonstrated the adrenals and kidneys are unremarkable. There is a retroaortic left renal vein incidentally noted. The uterus is absent.. The bladder is u nremarkable. The bones demonstrate degenerative spondylosis changes. IMPRESSION: Cardiomegaly Unchanged moderate right pleural effusion, since June 2019. New small left pleural effusion Bilateral mosaic perfusion pattern, probably on the basis of pulmonary edema Bilateral basilar compressive atelectasis and possible consolidation Interim healing of previously demonstrated right rib fractures Previously demonstrated right azygoesophageal recess lesion is no longer evident, may have resolved or may be obscured by surrounding lung parenchyma. Cholelithiasis Hepatomegaly Splenomegaly Splenic cystic lesion, unchanged from prior exam Postsurgical changes as described, including pacemaker, evidence of prior hysterectomy, evidence of prior pelvic lymph node dissection, prior hysterectomy ICD Codes: R94.5 - Abnormal results of liver function studies SNOMED: 720783874 SjjazminErrol Jan 29, 2020 14:17
--- NOTE | 2020-01-29 14:39 | Cardiac Electrophysiology PN ---
Subjective Subjective Dictated and DW Dr Adrian [id number] Objective Last 24 Hour Vital Signs Date Time Temp Pulse Resp B/P (MAP) Pulse Ox O2 Delivery O2 Flow Rate FiO2 01/29/20 12:00 66 01/29/20 12:00 97.5 74 18 121/63 (82) 95 01/29/20 12:00 97.7 78 17 117/75 (89) 95 01/29/20 09:00 Nasal Cannula 2.0 01/29/20 08:00 97.7 78 17 117/75 (89) 95 01/29/20 08:00 66 01/29/20 04:00 73 01/29/20 04:00 96.2 73 18 119/66 (83) 93 01/29/20 01:14 Nasal Cannula 2.0 01/28/20 18:13 97.5 73 18 101/55 100 Nasal Cannula 3.0 01/28/20 18:11 97.5 69 18 01/28/20 17:56 97.7 72 18 01/28/20 16:25 98.2 73 17 103/56 100 Nasal Cannula 3.0 01/28/20 14:40 82 17 01/28/20 14:40 98.2 78 17 102/49 Intake and Output 01/28/20 01/29/20 19:00 07:00 Intake Total 100 ml Balance 100 ml Other 100 ml # Voids 1 1 # Bowel Movements 1 Laboratory Tests Test 01/28/20 14:47 01/29/20 04:45 White Blood Count 8.8 K/UL (4.8-10.8) 6.9 K/UL (4.8-10.8) Red Blood Count 1.21 M/UL (4.20-5.40) L 2.13 M/UL (4.20-5.40) L Hemoglobin 3.6 G/DL (12.0-16.0) *L 6.4 G/DL (12.0-16.0) Hematocrit 10.1 % (37.0-47.0) L 17.5 % (37.0-47.0) #L Mean Corpuscular Volume 84 FL (80-99) 82 FL (80-99) Mean Corpuscular Hemoglobin 30.1 PG (27.0-31.0) 30.0 PG (27.0-31.0) Mean Corpuscular Hemoglobin Concent 36.0 G/DL (32.0-36.0) 36.6 G/DL (32.0-36.0) H Red Cell Distribution Width 22.1 % (11.6-14.8) H 14.1 % (11.6-14.8) Platelet Count 269 K/UL (150-450) 207 K/UL (150-450) Mean Platelet Volume 13.5 FL (6.5-10.1) H 15.0 FL (6.5-10.1) H Neutrophils (%) (Auto) % (45.0-75.0) % (45.0-75.0) Lymphocytes (%) (Auto) % (20.0-45.0) % (20.0-45.0) Monocytes (%) (Auto) % (1.0-10.0) % (1.0-10.0) Eosinophils (%) (Auto) % (0.0-3.0) % (0.0-3.0) Basophils (%) (Auto) % (0.0-2.0) % (0.0-2.0) Differential Total Cells Counted 100 100 Neutrophils % (Manual) 73 % (45-75) 83 % (45-75) H Lymphocytes % (Manual) 20 % (20-45) 11 % (20-45) L Monocytes % (Manual) 3 % (1-10) 6 % (1-10) Eosinophils % (Manual) 0 % (0-3) 0 % (0-3) Basophils % (Manual) 3 % (0-2) H 0 % (0-2) Band Neutrophils 1 % (0-8) 0 % (0-8) Nucleated Red Blood Cells 1 /100 WBC Platelet Estimate Adequate Adequate Platelet Morphology Giant Platelets Occasional Occasional Polychromasia 1+ Anisocytosis 3+ 1+ Prothrombin Time 15.2 SEC (9.30-11.50) H Prothromb Time International Ratio 1.4 (0.9-1.1) H Activated Partial Thromboplast Time 28 SEC (23-33) Sodium Level 139 MMOL/L (136-145) 143 MMOL/L (136-145) Potassium Level 5.0 MMOL/L (3.5-5.1) 4.0 MMOL/L (3.5-5.1) Chloride Level 106 MMOL/L (98-107) 112 MMOL/L (98-107) H Carbon Dioxide Level 23 MMOL/L (21-32) 23 MMOL/L (21-32) Anion Gap 11 mmol/L (5-15) 8 mmol/L (5-15) Blood Urea Nitrogen 40 mg/dL (7-18) H 35 mg/dL (7-18) H Creatinine 1.2 MG/DL (0.55-1.30) 0.8 MG/DL (0.55-1.30) Estimat Glomerular Filtration Rate 43.1 mL/min (>60) > 60 mL/min (>60) Glucose Level 123 MG/DL (74-106) H 81 MG/DL (74-106) Calcium Level 8.8 MG/DL (8.5-10.1) 8.2 MG/DL (8.5-10.1) L Total Bilirubin 1.4 MG/DL (0.2-1.0) H 1.8 MG/DL (0.2-1.0) H Direct Bilirubin 0.5 MG/DL (0.0-0.3) H 0.6 MG/DL (0.0-0.3) H Aspartate Amino Transf (AST/SGOT) 67 U/L (15-37) H 43 U/L (15-37) H Alanine Aminotransferase (ALT/SGPT) 50 U/L (12-78) 47 U/L (12-78) Alkaline Phosphatase 69 U/L (46-116) 57 U/L (46-116) Total Protein 7.3 G/DL (6.4-8.2) 6.0 G/DL (6.4-8.2) L Albumin 3.2 G/DL (3.4-5.0) L 2.6 G/DL (3.4-5.0) L Globulin 4.1 g/dL 3.4 g/dL Albumin/Globulin Ratio 0.8 (1.0-2.7) L 0.8 (1.0-2.7) L Triglycerides Level 59 MG/DL (30-150) Cholesterol Level 66 MG/DL (< 200) LDL Cholesterol 40 mg/dL (<100) HDL Cholesterol 14 MG/DL (40-60) L Cholesterol/HDL Ratio 4.7 (3.3-4.4) H Thyroid Stimulating Hormone (TSH) 4.108 uiU/mL (0.358-3.740) Microbiology Date/Time Source Procedure Growth Status 01/28/20 15:06 Nasopharynx SARS-CoV-2 RdRp Gene Assay - Final Complete Rievr Freitas MD Jan 29, 2020 14:39
--- NOTE | 2020-01-29 15:44 | NUR ---
NURSE NOTES: Pt Hr elevated for 6 seconds to 170 HR, Dr Freitas made aware. Pt HR back at 130-140. no new orders at this time. Addendum: 01/29/20 at 1549 by Maryjo Malik RN RN received one time order, order acknowledged and carried out
[2020-01-29] MEDS ORDERED: NS 500ML ONE (15:53)
[2020-01-29 16:00] VITALS: BP 121/63
--- NOTE | 2020-01-29 16:30 | NUR ---
NURSE NOTES: Unit 1 of PRBC completed. Pt is stable, no s/s or complaint of distress. vitals WNL, no adverse rxn noted. Tubing brought down to lab. Second unit of PRBC retrieved, checked with labor relations consultant.
--- NOTE | 2020-01-29 16:40 | NUR ---
NURSE NOTES: Started unit 2/2 of PRBC. pt is stable, vitals WNL, no s/s or complaint of distress. Blood checked with IRA Younger. blood started. No AE noted at this time.
--- NOTE | 2020-01-29 16:45 | Consultation ---
DATE OF CONSULTATION: 01/29/2020 CARDIOLOGY CONSULTATION CONSULTING PHYSICIAN: River Freitas MD REFERRING PHYSICIAN: Antonio Adrian MD REASON FOR CONSULTATION: Management of hypertension and evaluation of patient's pacemaker and atrial fibrillation. HISTORY OF PRESENT ILLNESS: Patient is an 79-year-old lady under my Cardiology care for history of hypertension and paroxysmal atrial fibrillation as well as history of [employer] pacemaker implantation by me as well as history of polycythemia vera, myelofibrosis, myelodysplasia who presented to the emergency room for generalized weakness. The patient was found to be profoundly anemic and was admitted to get blood transfusion. At the time of my evaluation, patient is still weak, but denies any chest pain. REVIEW OF SYSTEMS: Negative other than what was mentioned in the history of present illness. PAST MEDICAL HISTORY: As mentioned above. FAMILY HISTORY: Noncontributory. SOCIAL HISTORY: She does not smoke or drink alcohol. PHYSICAL EXAMINATION: VITAL SIGNS: Show blood pressure of 110/63, pulse 74, respirations 18, temperature 97.5. HEAD AND NECK: Showed no JVD. LUNGS: Coarse rhonchi. CARDIOVASCULAR: Shows regular S1 and S2 with no gallop or murmur. ABDOMEN: Soft. EXTREMITIES: 1+ pitting edema. LABORATORY AND DIAGNOSTIC DATA: Her labs show white count of 6.9, hemoglobin was 3.6, and after transfusion it is 6.4, platelet count is 207. Sodium is 142, potassium 4.0, BUN of 35, creatinine 0.8. INR is 1.4. ASSESSMENT AND PLAN: 1. Hypertension. Blood pressure is currently stable, off antihypertensive agents after blood transfusion for stabilization to resume that. 2. Status post [employer] pacemaker in 2010 and generator change by [place] in 2019. 3. Paroxysmal atrial fibrillation with rapid ventricular response. Patient was on digoxin, metoprolol, and amiodarone. Resume amiodarone and digoxin and start Lopressor at low dose if the blood pressure allows. Off anticoagulation for recurrent bleeding and profound anemia. We will get digoxin level. 4. Profound anemia with hemoglobin of 3 to 4. Patient on recent admission also had hemoglobin of 3 and had 4 units of blood transfusion just last month. Patient received blood transfusion. Further evaluation by Dr. Kaplan. 5. History of hemothorax, status post VATS. 6. History for pulmonary hypertension. 7. Polycythemia vera. 8. Myelofibrosis. Thank you very much, Dr. Adrian, for allowing me to participate in the care of this patient. Please do not hesitate to contact me for any questions regarding my evaluation. River Freitas M.D. DR: MALACHI JOB#: [id number] CC:
--- NOTE | 2020-01-29 17:58 | NUR ---
NURSE HAND-OFF REPORT: Important Events on Shift: hgb 6.4, 2 units PRBC ordered// Pt Hr 170 for 6 seconds, metoprolol 1x dose ordered, vivian ram, cardiac consult added Patient Status: fc, stable Diet: regular, Pt poor appetite Pending Orders: Pending Results/Labs: Pending MD notification: Latest Vital Signs: Temperature 97.5 , Pulse 115 , B/P 117 /75 , Respiratory Rate 18 , O2 SAT 95 , Nasal Cannula, O2 Flow Rate 2.0 . Vital Sign Comment: EKG Rhythm: Atrial Fibrillation Rhythm change?: Alexi JOHNSON Notified?: Alexi Calvillo MD Response: awaiting call back, no response Latest Yepez Fall Score: 40 Fall Risk: Medium Risk Safety Measures: Call light Within Reach, Bed Alarm Zone 1, Side Rails Side Rails x2, Bed position Low and Locked. Fall Precautions: Yellow Socks Yellow Gown Door Sign Patient Fall Education Report to be given. Addendum: 01/29/20 at 1930 by Maryjo Malik RN RN Report given to IRA Cadena. Pt is stable.
--- NOTE | 2020-01-29 19:29 | NUR ---
NURSE NOTES: Blood transfusion completed, vitals WNL. Pt is stable.
[2020-01-29 20:00] VITALS: BP 149/75
--- NOTE | 2020-01-29 20:00 | NUR ---
NURSE NOTES: RECEIVED PATIENT LYING IN BED, AWAKE, ALERT/ORIENTED X2, CONFUSED, TANZANIAN SPEAKING. IV INTACT TO RIGHT AC/GAUGE 20 SALINE LOCK, NO REDNESS/SWELLING NOTED TO SITE. NO SIGNS AND SYMPTOMS OF ACUTE CARDIO RESPIRATORY DISTRESS/SHORTNESS OF BREATH, NO PERIPHERAL EDEMA NOTED. S/P PRBC 2 UNITS, NO ILL EFFECTS NOTED. ABDOMEN SOFT/NON DISTENDED/AUDIBLE BOWEL SOUNDS, NO REPORT OF N/V, INCONTINENT OF STOOL, CARE PROVIDED, ASSISTED WITH REPOSITIONING, TOLERATED WELL. SIDE RAILS UP X3/BED IN LOWEST POSITION FOR SAFETY, FREQUENT ROUNDING FOR SAFETY/NEEDS. CONTINUE WITH CURRENT PLAN OF CARE. NAD.
[2020-01-29] MEDS ORDERED: Omnipaque 350 100ml vial INJ PRN (20:45)
[2020-01-29] MEDS: Heparin 5000 units/ml inj SUBQ SCH (21:20)
[2020-01-29 23:00] VITALS: BP 128/71
--- NOTE | 2020-01-29 23:30 | History and Physical Report ---
DATE OF ADMISSION: 01/28/2020 CHIEF COMPLAINT: Severe weakness, fatigue. HISTORY OF PRESENT ILLNESS: This is an 79-year-old very unfortunate female with past medical history significant for chronic atrial fibrillation, polycythemia vera, history of CVA with TIA, obstructive sleep apnea, coronary artery disease, dyslipidemia, congestive heart failure, right hemothorax in June of 2019, sick sinus syndrome status post of pacemaker, total abdominal hysterectomy, history of video-assisted thoracotomy with exploration surgery on 07/02/2019, history of JAK2 mutation, myelofibrosis, myelodysplasia who presented to the emergency department complaining about fatigue and weakness. Patient is very poor historian. History is mostly taken from the prior admission and apparently patient has been generally weak for past few weeks. No fever or chills were reported. No nausea or vomiting. No chest pain. However, patient has been complaining about generalized body ache as well as shortness of breath. Shortly after initial evaluation in the emergency department, patient was found to have hemoglobin of 3.6 and subsequently patient was admitted to the hospital with severe anemia, most likely secondary to myelodysplastic syndrome. PAST MEDICAL HISTORY/PAST SURGICAL HISTORY: As above. History of chronic atrial fibrillation, polycythemia vera, CVA with prior history of TIA, obstructive sleep apnea, coronary artery disease, dyslipidemia, congestive heart failure, right hemothorax in June of 2019, status post video-assisted thoracotomy exploration on 07/02/2019, sick sinus syndrome status post pacemaker, total abdominal hysterectomy, JAK2 mutation, COPD, myelofibrosis, history of myelodysplastic syndrome, and profound neuropathy. MEDICATIONS: At home significant for amiodarone 200 mg daily, Lasix 20 mg daily, gabapentin 300 mg 3 times a day, metoprolol 50 mg twice a day, digoxin 0.125 daily. Patient used to take hydroxyurea, but however stopped due to the severe myelodysplastic syndrome. ALLERGIES: No known drug allergies. SOCIAL HISTORY: Patient lives at home with her niece. No smoking, alcohol, or drugs. FAMILY HISTORY: Noncontributory. REVIEW OF SYSTEMS: Very limited secondary to patient's status. No nausea or vomiting. No hematuria or hematochezia. No bright red blood per rectum. No fall or head trauma. Patient has a poor appetite. Complained of shortness of breath. PHYSICAL EXAMINATION: VITAL SIGNS: On admission, significant for temperature 98.2, pulse of 82, respirations 17, blood pressure is 102/49. GENERAL: Patient is cachectic, malnutrition, very chronic ill-appearing, awake, responsive. HEAD AND NECK: Pupils equal and reactive to light. Extraocular movements intact. Neck was supple. No JVD. LUNGS: Good air entry. No wheezing or rhonchi. Decreased air entry in bases. HEART: S1, S2. Irregular. No murmur or gallop. Patient has a pacemaker in left-sided chest wall. ABDOMEN: Soft, nondistended, nontender. Positive bowel sounds. EXTREMITIES: No cyanosis, clubbing, or edema. Muscle atrophy bilateral lower extremities was noted. NEUROLOGIC: Cranial nerves II through XII grossly intact. Patient moving all the extremities. Gait was not assessed due to patient's status. RECTAL: Refused and deferred. GENITOURINARY: Refused and deferred. PSYCHIATRIC: Mood and affect is intact. LABORATORY DATA: On admission from the emergency department WBC of 8.8, hemoglobin of 3.6, hematocrit 10.1, platelets 269. Sodium 139, potassium 5.0, chloride 106, bicarb 23, BUN 40, creatinine 1.2, GFR is 43, glucose is 123, calcium is 8.8. Total bilirubin of 1.4, direct bilirubin of 0.5, AST of 67, ALT of 50, alkaline phosphate is 69. Total protein is 7.3. Albumin is 3.2. PT of 50, INR 1.4, PTT of 28. Patient had a chest x-ray, which noted to be small right pleural effusion with interstitial prominence and diffuse hazy opacity, may reflect edema versus infiltrate. Patient had a COVID-19 rapid test negative. ASSESSMENT: 1. Severe anemia, most likely secondary to myelodysplastic syndrome and myelofibrosis. 2. Hypotension, most likely secondary to dehydration as well as profound anemia. 3. Chronic atrial fibrillation. 4. History of polycythemia vera. 5. History of JAK2 mutation. 6. Myelofibrosis and myelodysplastic syndrome. 7. Hypertension. 8. Coronary artery disease. 9. Dyslipidemia. 10. Chronic congestive heart failure. 11. History of right hemothorax, status post video-assisted thoracotomy exploration on 07/02/2019. 12. Sick sinus syndrome with status post pacemaker. 13. Failure to thrive. 14. Severe protein-calorie malnutrition. PLAN: Admit patient to monitored unit. We follow up with Dr. Mejia from Pulmonary Critical Care and Dr. Freitas from Cardiology/Electrophysiology. Transfuse 2 units of packed RBC. Monitor laboratory closely. Patient is complaining about shortness of breath. Consider to repeat COVID-[address] angio of the chest to rule out PE. DVT prophylaxis, heparin subcutaneous. Monitor laboratory in the morning. Code status is Full Code. Antonio Adrian M.D. DR: NEY JOB#: [id number] CC:
[2020-01-30] MEDS ORDERED: HYDROcodone/Acetamin 5/325 tab ORAL PRN (03:00)
[2020-01-30] MEDS ORDERED: Omnipaque-300 100ml vial INJ PRN (03:00)
[2020-01-30 04:00] VITALS: BP 131/69
--- NOTE | 2020-01-30 06:46 | NUR ---
NURSE HAND-OFF REPORT: Important Events on Shift:[PATIENT PUI PENDING COVID TEST, SENT 05001/29] Patient Status: [STABLE, AFEBRILE] Diet: [PATIENT NPO PENDING PROCEDURES SECONDARY TO COMPLAINTS OF ABDOMINAL PAIN] Pending Orders: [CTA CHEST WITH CONTRAST, CT ABDOMEN PELVIS WITH CONTRAST] Pending Results/Labs:[COVID 19 PCR] Pending MD notification:[] Latest Vital Signs: Temperature 98.3 , Pulse 72 , B/P 131 /69 , Respiratory Rate 18 , O2 SAT 97 , Nasal Cannula, O2 Flow Rate 2.0 . Vital Sign Comment: [STABLE, AFEBRILE] EKG Rhythm: Sinus Rhythm Rhythm change?: N MD Notified?: Alexi Calvillo MD Response: Latest Yepez Fall Score: 40 Fall Risk: Medium Risk Safety Measures: Call light Within Reach, Bed Alarm Zone 1, Side Rails Side Rails x2, Bed position Low and Locked. Fall Precautions: Yellow Socks Yellow Gown Door Sign Patient Fall Education Report given to [IRA MÉNDEZ].
--- NOTE | 2020-01-30 07:16 | Pulmonology Progress Note ---
Subjective Allergies: Coded Allergies: No Known Allergies (Unverified , 04/24/18) Subjective denies CP, SOB + weakness, fatigue pulse ox stable on RA Hgb up to 11.3 after 5 u PRBC Objective Last 24 Hour Vital Signs Date Time Temp Pulse Resp B/P (MAP) Pulse Ox O2 Delivery O2 Flow Rate FiO2 01/30/20 04:00 61 01/30/20 04:00 98.3 72 18 131/69 (89) 97 01/30/20 00:00 61 01/29/20 23:00 98.8 79 20 128/71 (90) 96 01/29/20 21:19 101 151/82 01/29/20 21:00 Nasal Cannula 2.0 01/29/20 20:00 68 01/29/20 20:00 97.9 79 20 149/75 (99) 96 01/29/20 16:07 115 117/75 01/29/20 16:00 119 01/29/20 16:00 97.5 74 18 121/63 (82) 95 01/29/20 12:00 66 01/29/20 12:00 97.5 74 18 121/63 (82) 95 01/29/20 12:00 97.7 78 17 117/75 (89) 95 01/29/20 09:00 Nasal Cannula 2.0 01/29/20 08:00 97.7 78 17 117/75 (89) 95 01/29/20 08:00 66 Intake and Output 01/29/20 01/30/20 19:00 07:00 Intake Total 1340 ml 240 ml Balance 1340 ml 240 ml Intake Oral 840 ml 240 ml Blood Product 500 ml # Voids 5 2 # Bowel Movements 2 3 General Appearance: no acute distress, cachetic - elderly Cymraes speaking female HEENT: normocephalic, atraumatic, anicteric, mucous membranes moist Respiratory: lungs clear - with decreased BS, no respiratory distress, no accessory muscle use Cardiovascular: normal rate, regular rhythm - paced, , pacemaker/AICD - left upper chest Abdomen: soft, non tender, non distended Extremities: no edema Skin: other - R chest with healed scar Neurologic: alert, responsive, depressed affect Musculoskeletal: atrophy - BLE Microbiology Date/Time Source Procedure Growth Status 01/28/20 15:06 Nasopharynx SARS-CoV-2 RdRp Gene Assay - Final Complete Current Medications Medications (Trade) Dose Ordered Sig/Escobar Route PRN Reason Start Time Stop Time Status Last Admin Dose Admin Acetaminophen (Tylenol) 650 mg Q4H PRN ORAL fever 01/28/20 16:30 02/27/20 16:29 Acetaminophen (Tylenol) 650 mg Q6H PRN ORAL Mild Pain (Pain Scale 1-3) 01/30/20 03:00 02/29/20 02:59 Acetaminophen/ Hydrocodone Bitart ([place] 5/325) 1 tab Q6H PRN ORAL Moderate Pain (Pain Scale 4-6) 01/30/20 03:00 02/06/20 02:59 Amiodarone HCl (Cordarone) 200 mg DAILY ORAL 01/30/20 09:00 04/29/20 08:59 Barium Sulfate (Readi-Cat 2) 450 ml NOW PRN ORAL Radiology Procedure 01/30/20 03:00 02/01/20 02:59 Dextrose (Dextrose 50%) 25 ml Q30M PRN IV Hypoglycemia 01/28/20 16:30 02/27/20 16:18 Dextrose (Dextrose 50%) 50 ml Q30M PRN IV hypoglycemia 01/28/20 16:30 04/27/20 16:29 Digoxin (Lanoxin) 0.125 mg DAILY ORAL 01/30/20 09:00 04/29/20 08:59 Heparin Sodium (Porcine) (Heparin 5000 units/ml) 5,000 units EVERY 12 HOURS SUBQ 01/29/20 21:00 03/14/20 20:59 01/29/20 21:20 Iohexol (OMNIPAQUE-300 100ml) 100 ml NOW PRN INJ Radiology Procedure 01/30/20 03:00 02/01/20 02:59 Iohexol (Omnipaque 350 100ml) 100 ml NOW PRN INJ Radiology Procedure 01/29/20 20:45 01/31/20 20:44 Metoprolol Tartrate (Lopressor) 25 mg Q12HR ORAL 01/29/20 21:00 04/28/20 20:59 01/29/20 21:19 Ondansetron HCl (Zofran) 4 mg Q6H PRN IVP Nausea & Vomiting 01/28/20 16:30 02/27/20 16:29 Pantoprazole (Protonix) 40 mg DAILY ORAL 01/30/20 09:00 02/29/20 08:59 Polyethylene Glycol (Miralax) 17 gm HSPRN PRN ORAL Constipation 01/28/20 16:30 02/27/20 16:29 Zolpidem Tartrate (Ambien) 5 mg HSPRN PRN ORAL Insomnia 01/28/20 16:30 02/04/20 16:29 01/29/20 21:42 Assessment/Plan Assessment/Plan ASSESSMENT Acute profound symptomatic anemia Myelofibrosis and myelodysplasia Polycythemia vera Chronic atrial fibrillation Right hemothorax (June 2019), s/[ VATS Pulmonary hypertension KELVIN Severe protein calorie malnutrition SSS, status post pacemaker placement (2010), generator change (2018) HTN Elevated TSH PLAN OF CARE telemetry s/p 5 units PRBC Hgb up monitor H&H with goal to keep hemoglobin above 7 O2 titrate to keep sat above 92% DVT prophylaxis with SCD CXR with small R pleural effusion CT chest pending rate control with amiodarone ,digoxin beta-kelli no anticoagulation given severe anemia check free T4 , T3 given elevated TSH and amiodarone use T3 low, elevated TSH, start low dose Synthroid gentle IV hydration monitor renal parameters, electrolytes , correct electrolytes as needed dietary eval regarding protein supplements supportive care transfer MS if OK with cardio case discussed and evaluated by supervising physician Cait Melchor NP Jan 30, 2020 07:16
--- NOTE | 2020-01-30 07:20 | NUR ---
NURSE NOTES: Received report from Tammi/RN, Patient is asleep, lying semi-garcia's, resting comfortably. AAO x 1-2, On 2L nasal canula, no acute distress/SOB noted at this time. IV on right AC, clean, intact and patent. NPO at this time for ABD US. Bed in lowest position and locked, side rails x3, Call light within reach. Encouraged to use call light when needed. Will continue plan of care.
[2020-01-30 07:42] LABS: BASOPHILS % (AUTO) 5.2 % (0.0-2.0); EOSINOPHILS % (AUTO) 0.3 % (0.0-3.0); HEMOGLOBIN 11.3 G/DL (12.0-16.0); LYMPHOCYTES % (AUTO) 8.8 % (20.0-45.0); MEAN CORPUSCULAR VOLUME 81 FL (80-99); MONOCYTES % (AUTO) 2.8 % (1.0-10.0); PLATELET COUNT 216 K/UL (150-450); RED BLOOD COUNT 3.95 M/UL (4.20-5.40); RED CELL DISTRIBUTION WIDTH 15.9 % (11.6-14.8); WHITE BLOOD COUNT 8.3 K/UL (4.8-10.8)
[2020-01-30 08:00] VITALS: BP 132/72
[2020-01-30 08:03] LABS: ALANINE AMINOTRANSFERASE 42 U/L (12-78); ALBUMIN 2.7 G/DL (3.4-5.0); ALBUMIN/GLOBULIN RATIO 0.7 (1.0-2.7); ALKALINE PHOSPHATASE 64 U/L (46-116); ANION GAP 6 mmol/L (5-15); ASPARTATE AMINO TRANSFERASE 28 U/L (15-37); BILIRUBIN,TOTAL 1.4 MG/DL (0.2-1.0); BLOOD UREA NITROGEN 29 mg/dL (7-18); CALCIUM 8.6 MG/DL (8.5-10.1); CARBON DIOXIDE 24 MMOL/L (21-32); CHLORIDE 110 MMOL/L (98-107); CREATININE 0.7 MG/DL (0.55-1.30); LACTATE DEHYDROGENASE 625 U/L (81-234); PHOSPHORUS 2.8 MG/DL (2.5-4.9); POTASSIUM 3.9 MMOL/L (3.5-5.1); SODIUM 140 MMOL/L (136-145)
[2020-01-30 08:05] LABS: BILIRUBIN,DIRECT 0.4 MG/DL (0.0-0.3)
[2020-01-30] MEDS: Digoxin 0.125mg tab ORAL SCH (09:00)
[2020-01-30] MEDS: Amiodarone 200mg tab ORAL SCH (09:00)
[2020-01-30] MEDS: Heparin 5000 units/ml inj SUBQ SCH ×2 (09:02→21:31)
[2020-01-30 12:00] VITALS: BP 120/71
--- NOTE | 2020-01-30 13:34 | Diagnostic Imaging Report ---
EXAM: CT Angiography Chest With Intravenous Contrast CLINICAL HISTORY: Shortness of breath TECHNIQUE: Axial computed tomographic angiography images of the chest with intravenous contrast. CTDI is 40.30 mGy and DLP is 323.90 mGy-cm. One or more of the following dose reduction techniques were used: automated exposure control, adjustment of the mA and/or kV according to patient size, use of iterative reconstruction technique. MIP reconstructed images were created and reviewed. Coronal and sagittal reformatted images were created and reviewed. COMPARISON: No relevant prior studies available. FINDINGS: Pulmonary arteries: Unremarkable. No pulmonary embolism. Aorta: No thoracic aortic aneurysm. Lungs: Atelectatic volume loss and consolidation in bilateral lower lobes. Pleural space: Mild to moderate bilateral layering pleural effusions. Heart: Cardiomegaly. No pericardial effusion. No evidence of RV dysfunction. Bones/joints: Multilevel degenerative changes throughout the visualized spine with disc space loss and endplate osteophytes. No acute fracture. No dislocation. Soft tissues: Unremarkable. Lymph nodes: Unremarkable. No enlarged lymph nodes. Tubes, lines and devices: Cardiac pacer in the left chest wall with the lead tips in the right atrium and right ventricle. Upper abdomen: Incidental note of a 3.5 cm hypodensity in the superior aspect of spine, possibly a cyst or hemangioma. IMPRESSION: 1. Mild to moderate bilateral layering pleural effusions. 2. Atelectatic volume loss and consolidation in bilateral lower lobes. 3. No evidence of pulmonary embolism. 4. Cardiomegaly. 5. Incidental note of a 3.5 cm hypodensity in the superior aspect of spine, possibly a cyst or hemangioma.
--- NOTE | 2020-01-30 14:00 | Diagnostic Imaging Report ---
EXAM: CT Abdomen and Pelvis With Intravenous Contrast CLINICAL HISTORY: ABD PAIN TECHNIQUE: Axial computed tomography images of the abdomen and pelvis with intravenous contrast. Sagittal and coronal reformatted images were created and reviewed. CTDI is 40.3 mGy and DLP is 323.9 mGy-cm. One or more of the following dose reduction techniques were used: automated exposure control, adjustment of the mA and/or kV according to patient size, use of iterative reconstruction technique. COMPARISON: CT chest obtained earlier the same date. CT abdomen pelvis dated 09/24/19. FINDINGS: Lung bases: Atelectatic consolidation in bilateral lung bases. Pleural space: Moderate bilateral layering pleural effusions. ABDOMEN: Liver: Hepatomegaly. Gallbladder and bile ducts: Unremarkable. No calcified stones. No ductal dilation. Pancreas: Unremarkable. No mass. No ductal dilation. Spleen: 3.3 x 3.1 x 2.6 cm cystic hypodensity in the spleen, stable. Spleen negative. Adrenals: Unremarkable. No mass. Kidneys and ureters: Unremarkable. No solid mass. No hydronephrosis. Stomach and bowel: Descending and sigmoid colonic diverticulosis. Mild wall thickening in the proximal sigmoid colon may be related to underdistention versus mild colitis/diverticulitis. PELVIS: Appendix: No findings to suggest acute appendicitis. Bladder: Unremarkable. No visible stones. Reproductive: Status post hysterectomy. ABDOMEN and PELVIS: Intraperitoneal space: Trace free fluid in the pelvis. No free intraperitoneal air. Bones/joints: No acute fracture. No dislocation. Soft tissues: Unremarkable. Vasculature: Unremarkable. No abdominal aortic aneurysm. Lymph nodes: Radiodense clips in bilateral retroperitoneal regions, likely from prior lymph node resection. IMPRESSION: 1. Moderate bilateral layering pleural effusions. 2. Atelectatic consolidation in bilateral lung bases. 3. Descending and sigmoid colonic diverticulosis. Mild wall thickening in the proximal sigmoid colon may be related to underdistention versus mild colitis/diverticulitis. 4. Trace free fluid in the pelvis. No free intraperitoneal air. 5. Radiodense clips in bilateral retroperitoneal regions, likely from prior lymph node resection. 6. Status post hysterectomy. 7. 3.3 x 3.1 x 2.6 cm cystic hypodensity in the spleen, stable. 8. Hepatomegaly. 9. Spleen negative.
--- NOTE | 2020-01-30 14:25 | NUR ---
NURSE NOTES: Patient is taking a nap, No distress/SOB noted. In stable condition. Will continue to monitor.
[2020-01-30 16:00] VITALS: BP 129/71
--- NOTE | 2020-01-30 16:48 | Internal Med Progress Note ---
Subjective Date of Service: Jan 30, 2020 Physician Name GraceRoshan Attending Physician Antonio Adrian MD Current Medications Medications (Trade) Dose Ordered Sig/Escobar Route PRN Reason Start Time Stop Time Status Last Admin Dose Admin Acetaminophen (Tylenol) 650 mg Q4H PRN ORAL fever 01/28/20 16:30 02/27/20 16:29 Acetaminophen (Tylenol) 650 mg Q6H PRN ORAL Mild Pain (Pain Scale 1-3) 01/30/20 03:00 02/29/20 02:59 Acetaminophen/ Hydrocodone Bitart (Walton 5/325) 1 tab Q6H PRN ORAL Moderate Pain (Pain Scale 4-6) 01/30/20 03:00 02/06/20 02:59 Amiodarone HCl (Cordarone) 200 mg DAILY ORAL 01/30/20 09:00 04/29/20 08:59 Barium Sulfate (Readi-Cat 2) 450 ml NOW PRN ORAL Radiology Procedure 01/30/20 03:00 02/01/20 02:59 Dextrose (Dextrose 50%) 25 ml Q30M PRN IV Hypoglycemia 01/28/20 16:30 02/27/20 16:18 Dextrose (Dextrose 50%) 50 ml Q30M PRN IV hypoglycemia 01/28/20 16:30 04/27/20 16:29 Digoxin (Lanoxin) 0.125 mg DAILY ORAL 01/30/20 09:00 04/29/20 08:59 Heparin Sodium (Porcine) (Heparin 5000 units/ml) 5,000 units EVERY 12 HOURS SUBQ 01/29/20 21:00 03/14/20 20:59 01/30/20 09:02 Iohexol (OMNIPAQUE-300 100ml) 100 ml NOW PRN INJ Radiology Procedure 01/30/20 03:00 02/01/20 02:59 Iohexol (Omnipaque 350 100ml) 100 ml NOW PRN INJ Radiology Procedure 01/29/20 20:45 01/31/20 20:44 Levothyroxine Sodium (Synthroid) 25 mcg DAILY@0630 ORAL 01/31/20 06:30 03/01/20 06:29 Metoprolol Tartrate (Lopressor) 25 mg Q12HR ORAL 01/29/20 21:00 04/28/20 20:59 01/29/20 21:19 Ondansetron HCl (Zofran) 4 mg Q6H PRN IVP Nausea & Vomiting 01/28/20 16:30 02/27/20 16:29 Pantoprazole (Protonix) 40 mg DAILY ORAL 01/30/20 09:00 02/29/20 08:59 01/30/20 09:01 Polyethylene Glycol (Miralax) 17 gm HSPRN PRN ORAL Constipation 01/28/20 16:30 02/27/20 16:29 Zolpidem Tartrate (Ambien) 5 mg HSPRN PRN ORAL Insomnia 01/28/20 16:30 02/04/20 16:29 01/29/20 21:42 Allergies: Coded Allergies: No Known Allergies (Unverified , 04/24/18) ROS Limited/Unobtainable: Yes Subjective 79 YO F with history of myelodysplastic syndrome admitted with gen weakness and fatigue. Now severe anemia. Cover for Int med-Dr Adrian Objective Last Vital Signs Date Time Temp Pulse Resp B/P (MAP) Pulse Ox O2 Delivery O2 Flow Rate FiO2 01/30/20 16:00 67 01/30/20 12:00 97.8 18 120/71 (87) 01/30/20 09:00 Nasal Cannula 2.0 01/30/20 04:00 97 Laboratory Tests Test 01/30/20 05:50 01/30/20 06:00 Free Thyroxine 1.36 NG/DL (0.76-1.46) Free Triiodothyronine 1.2 pg/mL (2.3-4.2) L White Blood Count 8.3 K/UL (4.8-10.8) Red Blood Count 3.95 M/UL (4.20-5.40) L Hemoglobin 11.3 G/DL (12.0-16.0) #L Hematocrit 32.0 % (37.0-47.0) #L Mean Corpuscular Volume 81 FL (80-99) Mean Corpuscular Hemoglobin 28.5 PG (27.0-31.0) Mean Corpuscular Hemoglobin Concent 35.2 G/DL (32.0-36.0) Red Cell Distribution Width 15.9 % (11.6-14.8) H Platelet Count 216 K/UL (150-450) Mean Platelet Volume 16.2 FL (6.5-10.1) H Neutrophils (%) (Auto) 83.0 % (45.0-75.0) H Lymphocytes (%) (Auto) 8.8 % (20.0-45.0) L Monocytes (%) (Auto) 2.8 % (1.0-10.0) Eosinophils (%) (Auto) 0.3 % (0.0-3.0) Basophils (%) (Auto) 5.2 % (0.0-2.0) H Erythrocyte Sedimentation Rate 63 MM/HR (0-30) H Reticulocyte Count 0.6 % (0.5-2.0) Sodium Level 140 MMOL/L (136-145) Potassium Level 3.9 MMOL/L (3.5-5.1) Chloride Level 110 MMOL/L (98-107) H Carbon Dioxide Level 24 MMOL/L (21-32) Anion Gap 6 mmol/L (5-15) Blood Urea Nitrogen 29 mg/dL (7-18) H Creatinine 0.7 MG/DL (0.55-1.30) Estimat Glomerular Filtration Rate > 60 mL/min (>60) Glucose Level 97 MG/DL (74-106) Calcium Level 8.6 MG/DL (8.5-10.1) Phosphorus Level 2.8 MG/DL (2.5-4.9) Magnesium Level 2.2 MG/DL (1.8-2.4) Total Bilirubin 1.4 MG/DL (0.2-1.0) H Direct Bilirubin 0.4 MG/DL (0.0-0.3) H Aspartate Amino Transf (AST/SGOT) 28 U/L (15-37) Alanine Aminotransferase (ALT/SGPT) 42 U/L (12-78) Alkaline Phosphatase 64 U/L (46-116) Lactate Dehydrogenase 625 U/L (81-234) H Total Protein 6.6 G/DL (6.4-8.2) Albumin 2.7 G/DL (3.4-5.0) L Globulin 3.9 g/dL Albumin/Globulin Ratio 0.7 (1.0-2.7) L Digoxin Level < 0.2 NG/ML (0.9-2.0) L Microbiology Date/Time Source Procedure Growth Status 01/28/20 15:06 Nasopharynx SARS-CoV-2 RdRp Gene Assay - Final Complete Intake and Output 01/29/20 01/30/20 19:00 07:00 Intake Total 1340 ml 240 ml Balance 1340 ml 240 ml Intake Oral 840 ml 240 ml Blood Product 500 ml # Voids 5 2 # Bowel Movements 2 3 Objective PHYSICAL EXAMINATION: GENERAL: Patient is cachectic, malnutrition, very chronic ill-appearing, awake, responsive. HEAD AND NECK: Pupils equal and reactive to light. Extraocular movements intact. Neck was supple. No JVD. LUNGS: Good air entry. No wheezing or rhonchi. Decreased air entry in bases. HEART: S1, S2. Irregular. No murmur or gallop. Patient has a pacemaker in left-sided chest wall. ABDOMEN: Soft, nondistended, nontender. Positive bowel sounds. EXTREMITIES: No cyanosis, clubbing, or edema. Muscle atrophy bilateral lower extremities was noted. NEUROLOGIC: Cranial nerves II through XII grossly intact. Patient moving all the extremities. Gait was not assessed due to patient's status. RECTAL: Refused and deferred. GENITOURINARY: Refused and deferred. PSYCHIATRIC: Mood and affect is intact. Assessment/Plan Assessment/Plan ASSESSMENT: 1. Severe anemia, most likely secondary to myelodysplastic syndrome and myelofibrosis. 2. Hypotension, most likely secondary to dehydration as well as profound anemia. 3. Chronic atrial fibrillation. 4. History of polycythemia vera. 5. History of JAK2 mutation. 6. Myelofibrosis and myelodysplastic syndrome. 7. Hypertension. 8. Coronary artery disease. 9. Dyslipidemia. 10. Chronic congestive heart failure. 11. History of right hemothorax, status post video-assisted thoracotomy exploration on 07/02/2019. 12. Sick sinus syndrome with status post pacemaker. 13. Failure to thrive. 14. Severe protein-calorie malnutrition. 15. COVID 19 neg PLAN: 1. Admit patient to monitored unit. 2. Dr. Mejia = Pulmonary Critical Care 3. Dr. Freitas = Cardiology/Electrophysiology. 4. S/P Transfusion 6 units of packed RBC. 5. CT angio of the chest = neg for PE. 6. DVT prophylaxis, heparin subcutaneous. 7. Code status is Full Code. Roshan Edwards MD Jan 30, 2020 16:48
--- NOTE | 2020-01-30 17:05 | Cardiac Electrophysiology PN ---
Assessment/Plan Assessment/Plan 1. Hypertension. On Lopressor 25 po bid 2. Status post [employer] pacemaker in 2011 and generator change by me in 2019. 3. Paroxysmal atrial fibrillation with rapid ventricular response. On digoxin, metoprolol, and amiodarone. Off anticoagulation for recurrent bleeding and profound anemia. We will get digoxin level. 4. Profound anemia with hemoglobin of 3 to 4. Patient on recent admission also had hemoglobin of 3 and had 6 units of blood transfusion Further evaluation by Dr. Kaplan. 5. History of hemothorax, status post VATS. 6. History for pulmonary hypertension. 7. Polycythemia vera. 8. Myelofibrosis. Subjective Subjective Received total of 6 units of PRBC. Is being ruled out for Covid Objective Last 24 Hour Vital Signs Date Time Temp Pulse Resp B/P (MAP) Pulse Ox O2 Delivery O2 Flow Rate FiO2 01/30/20 16:00 67 01/30/20 12:00 62 01/30/20 12:00 97.8 68 18 120/71 (87) 01/30/20 09:00 58 132/72 01/30/20 09:00 58 01/30/20 09:00 Nasal Cannula 2.0 01/30/20 08:00 97.7 58 20 132/72 (92) 01/30/20 08:00 64 01/30/20 04:00 61 01/30/20 04:00 98.3 72 18 131/69 (89) 97 01/30/20 00:00 61 01/29/20 23:00 98.8 79 20 128/71 (90) 96 01/29/20 21:19 101 151/82 01/29/20 21:00 Nasal Cannula 2.0 01/29/20 20:00 68 01/29/20 20:00 97.9 79 20 149/75 (99) 96 Intake and Output 01/29/20 01/30/20 19:00 07:00 Intake Total 1340 ml 240 ml Balance 1340 ml 240 ml Intake Oral 840 ml 240 ml Blood Product 500 ml # Voids 5 2 # Bowel Movements 2 3 Laboratory Tests Test 01/30/20 05:50 01/30/20 06:00 Free Thyroxine 1.36 NG/DL (0.76-1.46) Free Triiodothyronine 1.2 pg/mL (2.3-4.2) L White Blood Count 8.3 K/UL (4.8-10.8) Red Blood Count 3.95 M/UL (4.20-5.40) L Hemoglobin 11.3 G/DL (12.0-16.0) #L Hematocrit 32.0 % (37.0-47.0) #L Mean Corpuscular Volume 81 FL (80-99) Mean Corpuscular Hemoglobin 28.5 PG (27.0-31.0) Mean Corpuscular Hemoglobin Concent 35.2 G/DL (32.0-36.0) Red Cell Distribution Width 15.9 % (11.6-14.8) H Platelet Count 216 K/UL (150-450) Mean Platelet Volume 16.2 FL (6.5-10.1) H Neutrophils (%) (Auto) 83.0 % (45.0-75.0) H Lymphocytes (%) (Auto) 8.8 % (20.0-45.0) L Monocytes (%) (Auto) 2.8 % (1.0-10.0) Eosinophils (%) (Auto) 0.3 % (0.0-3.0) Basophils (%) (Auto) 5.2 % (0.0-2.0) H Erythrocyte Sedimentation Rate 63 MM/HR (0-30) H Reticulocyte Count 0.6 % (0.5-2.0) Sodium Level 140 MMOL/L (136-145) Potassium Level 3.9 MMOL/L (3.5-5.1) Chloride Level 110 MMOL/L (98-107) H Carbon Dioxide Level 24 MMOL/L (21-32) Anion Gap 6 mmol/L (5-15) Blood Urea Nitrogen 29 mg/dL (7-18) H Creatinine 0.7 MG/DL (0.55-1.30) Estimat Glomerular Filtration Rate > 60 mL/min (>60) Glucose Level 97 MG/DL (74-106) Calcium Level 8.6 MG/DL (8.5-10.1) Phosphorus Level 2.8 MG/DL (2.5-4.9) Magnesium Level 2.2 MG/DL (1.8-2.4) Total Bilirubin 1.4 MG/DL (0.2-1.0) H Direct Bilirubin 0.4 MG/DL (0.0-0.3) H Aspartate Amino Transf (AST/SGOT) 28 U/L (15-37) Alanine Aminotransferase (ALT/SGPT) 42 U/L (12-78) Alkaline Phosphatase 64 U/L (46-116) Lactate Dehydrogenase 625 U/L (81-234) H Total Protein 6.6 G/DL (6.4-8.2) Albumin 2.7 G/DL (3.4-5.0) L Globulin 3.9 g/dL Albumin/Globulin Ratio 0.7 (1.0-2.7) L Digoxin Level < 0.2 NG/ML (0.9-2.0) L Microbiology Date/Time Source Procedure Growth Status 01/28/20 15:06 Nasopharynx SARS-CoV-2 RdRp Gene Assay - Final Complete Objective HEAD AND NECK: Showed no JVD. LUNGS: Coarse rhonchi. CARDIOVASCULAR: Shows regular S1 and S2 with no gallop or murmur. ABDOMEN: Soft. EXTREMITIES: 1+ pitting edema. River Freitas MD Jan 30, 2020 17:05
--- NOTE | 2020-01-30 17:54 | Surgery Progress Note ---
Surgery Progress Note Subjective Additional Comments transfused 6 units. h/h improved trend labs no active bleeding no n/v Objective Last 24 Hour Vital Signs Date Time Temp Pulse Resp B/P (MAP) Pulse Ox O2 Delivery O2 Flow Rate FiO2 01/30/20 16:00 67 01/30/20 16:00 97.7 18 129/71 (90) 01/30/20 12:00 62 01/30/20 12:00 97.8 68 18 120/71 (87) 01/30/20 09:00 58 132/72 01/30/20 09:00 58 01/30/20 09:00 Nasal Cannula 2.0 01/30/20 08:00 97.7 58 20 132/72 (92) 01/30/20 08:00 64 01/30/20 04:00 61 01/30/20 04:00 98.3 72 18 131/69 (89) 97 01/30/20 00:00 61 01/29/20 23:00 98.8 79 20 128/71 (90) 96 01/29/20 21:19 101 151/82 01/29/20 21:00 Nasal Cannula 2.0 01/29/20 20:00 68 01/29/20 20:00 97.9 79 20 149/75 (99) 96 I&O Intake and Output 01/29/20 01/30/20 19:00 07:00 Intake Total 1340 ml 240 ml Balance 1340 ml 240 ml Intake Oral 840 ml 240 ml Blood Product 500 ml # Voids 5 2 # Bowel Movements 2 3 Cardiovascular: RSR Respiratory: decreased breath sounds Abdomen: soft, flat, non-tender, present bowel sounds, non-distended Extremities: edema, no tenderness, no cyanosis, pulses, other Laboratory Tests Test 01/30/20 05:50 01/30/20 06:00 Free Thyroxine 1.36 NG/DL (0.76-1.46) Free Triiodothyronine 1.2 pg/mL (2.3-4.2) L White Blood Count 8.3 K/UL (4.8-10.8) Red Blood Count 3.95 M/UL (4.20-5.40) L Hemoglobin 11.3 G/DL (12.0-16.0) #L Hematocrit 32.0 % (37.0-47.0) #L Mean Corpuscular Volume 81 FL (80-99) Mean Corpuscular Hemoglobin 28.5 PG (27.0-31.0) Mean Corpuscular Hemoglobin Concent 35.2 G/DL (32.0-36.0) Red Cell Distribution Width 15.9 % (11.6-14.8) H Platelet Count 216 K/UL (150-450) Mean Platelet Volume 16.2 FL (6.5-10.1) H Neutrophils (%) (Auto) 83.0 % (45.0-75.0) H Lymphocytes (%) (Auto) 8.8 % (20.0-45.0) L Monocytes (%) (Auto) 2.8 % (1.0-10.0) Eosinophils (%) (Auto) 0.3 % (0.0-3.0) Basophils (%) (Auto) 5.2 % (0.0-2.0) H Erythrocyte Sedimentation Rate 63 MM/HR (0-30) H Reticulocyte Count 0.6 % (0.5-2.0) Sodium Level 140 MMOL/L (136-145) Potassium Level 3.9 MMOL/L (3.5-5.1) Chloride Level 110 MMOL/L (98-107) H Carbon Dioxide Level 24 MMOL/L (21-32) Anion Gap 6 mmol/L (5-15) Blood Urea Nitrogen 29 mg/dL (7-18) H Creatinine 0.7 MG/DL (0.55-1.30) Estimat Glomerular Filtration Rate > 60 mL/min (>60) Glucose Level 97 MG/DL (74-106) Calcium Level 8.6 MG/DL (8.5-10.1) Phosphorus Level 2.8 MG/DL (2.5-4.9) Magnesium Level 2.2 MG/DL (1.8-2.4) Total Bilirubin 1.4 MG/DL (0.2-1.0) H Direct Bilirubin 0.4 MG/DL (0.0-0.3) H Aspartate Amino Transf (AST/SGOT) 28 U/L (15-37) Alanine Aminotransferase (ALT/SGPT) 42 U/L (12-78) Alkaline Phosphatase 64 U/L (46-116) Lactate Dehydrogenase 625 U/L (81-234) H Total Protein 6.6 G/DL (6.4-8.2) Albumin 2.7 G/DL (3.4-5.0) L Globulin 3.9 g/dL Albumin/Globulin Ratio 0.7 (1.0-2.7) L Digoxin Level < 0.2 NG/ML (0.9-2.0) L Plan Problems: (1) Generalized weakness (2) Symptomatic anemia (3) Protein-calorie malnutrition, severe (4) Severe anemia (5) ACS (acute coronary syndrome) (6) Pyelonephritis (7) CAD (coronary artery disease) (8) COPD (chronic obstructive pulmonary disease) (9) positional vertigo (10) KELVIN (obstructive sleep apnea) (11) Peripheral neuropathy (12) Myelofibrosis (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 hx of bleeding held anticoagulation since prior right hemothorax s/p evacuation and vats transfusing prbc coags noted ddx includes possible GI hemorrhage. possible blood disorder protonix prior imaging reviewed as below abnormal lft's likely heme breakdown products thank you will follow with recs trend h/h transfuse prn Gallbladder demonstrates a gallstone. This also reported on same day CT. Sonographic Camacho's sign is negative. Common bile duct measures 5 mm in diameter. No intrahepatic biliary ductal dilatation. Liver demonstrates normal echogenicity, no focal abnormality. Portal vein and hepatic veins are patent. Pancreas is unremarkable. The spleen demonstrates a complex upper pole cyst that measures 2.7 cm in diameter. The spleen is borderline enlarged. There are bilateral pleural effusions Left kidney measures 10.2 cm in length. Right kidney measures 9.2 cm length. Both kidneys demonstrate normal echogenicity. There is no hydronephrosis. No focal abnormality . Non-aneurysmal abdominal aorta . Impression: Cholelithiasis. Negative for dilated bile ducts 2.7 cm complex upper pole splenic cyst, also reported on prior imaging studies. Bilateral pleural effusions Chest: The lungs demonstrate a mosaic perfusion pattern, which is more striking than that seen previously. Some atelectasis and consolidation is seen involving both lower lobes. This appears similar on the right, slightly more extensive on the left. There is a moderate-sized right pleural effusion which appears similar to the previous study. There is a small left pleural effusion which is new since the previous study. Previous exam demonstrated a 1.5 cm opacity in the inferior right azygoesophageal recess. This is not evident currently although could be obscured by surrounding atelectatic lung. The heart is enlarged. There is a left chest pacemaker again demonstrated. No pericardial effusion. No mediastinal or hilar mass or adenopathy. Right lower pole thyroid calcification is again demonstrated. No axillary or chest wall mass or adenopathy. There are fairly profound degenerative changes of the bilateral shoulders. There is evidence of interim healing of previously demonstrated right rib fractures, nearly but not completely healed as some fracture lines persist. There are degenerative changes of the thoracic spine noted. Abdomen pelvis: What is probably a normal appendix is demonstrated. There is extensive colonic diverticulosis. No evidence of diverticulitis. The rectum is mildly distended, mostly with gas with some stool as well. No small bowel distention or small bowel wall thickening. Numerous surgical clips are seen in the retroperitoneum and left side of the pelvis. The stomach and duodenum are unremarkable. The gallbladder contains a gallstone. No biliary ductal dilatation. The liver is mildly enlarged. The pancreas is unremarkable. The spleen is enlarged, measuring 14 cm long axis dimension. It demonstrates a complex upper pole cyst, also previ ously demonstrated the adrenals and kidneys are unremarkable. There is a retroaortic left renal vein incidentally noted. The uterus is absent.. The bladder is unremarkable. The bones demonstrate degenerative spondylosis changes. IMPRESSION: Cardiomegaly Unchanged moderate right pleural effusion, since June 2019. New small left pleural effusion Bilateral mosaic perfusion pattern, probably on the basis of pulmonary edema Bilateral basilar compressive atelectasis and possible consolidation Interim healing of previously demonstrated right rib fractures Previously demonstrated right azygoesophageal recess lesion is no longer evident, may have resolved or may be obscured by surrounding lung parenchyma. Cholelithiasis Hepatomegaly Splenomegaly Splenic cystic lesion, unchanged from prior exam Postsurgical changes as described, including pacemaker, evidence of prior hysterectomy, evidence of prior pelvic lymph node dissection, prior hysterectomy Errol Estrada Jan 30, 2020 17:54
--- NOTE | 2020-01-30 19:04 | NUR ---
NURSE HAND-OFF REPORT: Important Events on Shift: Hgb went up to 11.3 Patient Status: Stable Diet: Regular Pending Orders: Transfer to [facility] Pending Results/Labs:Morning labs Pending notification:N/A Latest Vital Signs: Temperature 97.7 , Pulse 67 , B/P 129 /71 , Respiratory Rate 18 , O2 SAT 97 , Nasal Cannula, O2 Flow Rate 2.0 . Vital Sign Comment: Stable EKG Rhythm: Sinus Rhythm Rhythm change?: N MD Notified?: Alexi Calvillo MD Response: Latest Yepez Fall Score: 30 Fall Risk: Medium Risk Safety Measures: Call light Within Reach, Bed Alarm Zone 1, Side Rails Side Rails x3, Bed position Low and Locked. Fall Precautions: Yellow Socks Yellow Gown Door Sign Patient Fall Education Report given to Tammi/KOJO.
[2020-01-30 20:00] VITALS: BP 138/71
--- NOTE | 2020-01-30 20:00 | NUR ---
NURSE NOTES: RECEIVED PATIENT LYING IN BED, AWAKE, ALERT/ORIENTED TO PERSON/PLACE, REALITY ORIENTATION DURING ASSESSMENT, DENIES PAIN, NO SIGNS AND SYMPTOMS OF ACUTE CARDIO RESPIRATORY DISTRESS/SHORTNESS OF BREATH, NO EDEMA NOTED. IV INTACT TO RIGHT AC/GAUGE 20, SALINE LOCK, FLUSHING WELL. NO REPORT OF GI DISCOMFORT, NO N/V. NOTED WITH OPTIFOAM TO BONY AREAS OF BODY/PROPHYLAXIS. SIDE RAILS UP X3, BED IN LOWEST POSITION FOR SAFETY, FREQUENT ROUNDING FOR SAFETY/NEEDS. CONTINUE WITH CURRENT PLAN OF CARE. PUI ISOLATION OBSERVED AT ALL TIMES. RESTING COMFORTABLY, NAD.
[2020-01-31] VITALS: BP 136/82
--- NOTE | 2020-01-31 01:43 | NUR ---
NURSE NOTES: FOR APPROXIMATELY 3 SECONDS PATIENT NOTED WITH PST/115 HEART RATE-
--- NOTE | 2020-01-31 03:22 | NUR ---
NURSE NOTES: PATIENT HEART RATE FLUCTUATING FROM MID 130'S TO MID 160'S, B/P 106/64, ASYMPTOMATIC, MESSAGE LEFT FOR DR. NELSON, CHARGE NURSE AWARE, NAD.
[2020-01-31 04:00] VITALS: BP 110/78
--- NOTE | 2020-01-31 06:40 | NUR ---
NURSE NOTES: SPOKE TO DR. NELSON REGARDING ELEVATED HEART RATE, MD GAVE ORDER TO TRANSFER PATIENT TO ICU-START CARDIZEM DRIP AT 10MG/HOUR-MADE GREEN INSPECTOR AWARE OF DR. NELSON ORDER, I WAS INFORMED BY GREEN INSPECTOR THAT THERE IS NOT AN ICU BED AVAILABLE/TWO ATTEMPTS WERE MADE TO INFORM MD REGARDING STATUS OF ICU BED, LEFT DETAILED MESSAGE REQUESTING POSSIBILITY IV PUSH CARDIZEM TO BE GIVEN ON TELE UNIT, NO RESPONSE FROM MD. WILL CONTINUE TO MONITOR PATIENT, CHARGE NURSE AWARE.
[2020-01-31] MEDS: Levothyroxine 25mcg tab ORAL SCH (07:21)
--- NOTE | 2020-01-31 07:45 | NUR ---
NURSE NOTES: Received report from Tammi, Patient is awake, lying semi-garcia's, resting comfortably. Per night nurse Patient's Heart rate fluctuating between 130-170's, MD notified. AAO x 1-2, . patient denies palpitations or any cardiac symptoms. IV on right AC, clean, intact and patent. Vital signs taken and hypotensive 100/64. On 2L nasal canula, sating 97%, no acute distress/SOB noted. Bed in lowest position and locked, side rails x3, Call light within reach. Encouraged to use call light when needed. Will continue plan of care.
[2020-01-31 08:00] VITALS: BP 100/64
[2020-01-31] MEDS ORDERED: dilTIAZem HCl 25mg/5ml Inj IVP ONE (08:00)
[2020-01-31] MEDS ORDERED: Digoxin 0.5mg/2ml Inj IVP SCH (08:00)
--- NOTE | 2020-01-31 08:07 | NUR ---
NURSE HAND-OFF REPORT: Important Events on Shift:[PATIENT NOTED WITH ELEVATED HEART RATE AT 0330, FLUCTUATING MID 130'S TO MID 160'S, ASYMPTOMATIC, MD NOTIFIED, ORDERED STAT EKG, RESULTS SENT TO MD, NO FURTHER ORDERS-0540 HEART RATE 170'S, LEFT ANOTHER MESSAGE FOR MD, GAVE ORDER TO TRANSFER TO ICU WITH CARDIZEM DRIP, RIGGING AND CONTROLS AIRCRAFT MECHANIC NOTIFIED/NO ICU BED AVAILABLE, LEFT 2 FOLLOW UP MESSAGES FOR MD REGARDING ICU BED AVAILABILITY AND POSSIBLE IVP MEDICATION - MD GAVE NEW MEDICATION ORDER APPROXIMATELY 0800, ORDERS ENDORSED TO AM RN] Patient Status: [RESTING COMFORTABLY, NAD] Diet: [REGULAR] Pending Orders: [CARDIZEM/DIG, AM LABS] Pending Results/Labs:[N/A] Pending MD notification:[] Latest Vital Signs: Temperature 97.7 , Pulse 133 , B/P 100 /64 , Respiratory Rate 18 , O2 SAT 96 , Nasal Cannula, O2 Flow Rate 2.0 . Vital Sign Comment: [HEART RATE ON DUST HANDLER 154BPM] EKG Rhythm: Sinus Rhythm Rhythm change?: N MD Notified?: Alexi Calvillo MD Response: Latest Yepez Fall Score: 30 Fall Risk: Medium Risk Safety Measures: Call light Within Reach, Bed Alarm Zone 1, Side Rails Side Rails x3, Bed position Low and Locked. Fall Precautions: Yellow Socks Yellow Gown Door Sign Patient Fall Education Report given to [IRA YUEN].
[2020-01-31] MEDS: Heparin 5000 units/ml inj SUBQ SCH ×2 (08:22→22:44)
[2020-01-31] MEDS: Digoxin 0.125mg tab ORAL SCH (08:23)
[2020-01-31] MEDS: Amiodarone 200mg tab ORAL SCH (08:23)
--- NOTE | 2020-01-31 08:48 | Pulmonology Progress Note ---
Subjective ROS Limited/Unobtainable: Yes Allergies: Coded Allergies: No Known Allergies (Unverified , 04/24/18) Subjective denies CP, SOB + weakness, fatigue pulse ox stable on RA Hgb up to 11.3 after 6 u PRBC Objective Last 24 Hour Vital Signs Date Time Temp Pulse Resp B/P (MAP) Pulse Ox O2 Delivery O2 Flow Rate FiO2 01/31/20 08:24 133 100/64 01/31/20 08:23 133 100/64 01/31/20 08:23 133 01/31/20 08:23 133 01/31/20 08:00 97.7 133 18 100/64 (76) 96 01/31/20 04:00 97.5 134 18 110/78 (89) 99 01/31/20 00:00 66 01/31/20 00:00 97.9 62 18 136/82 (100) 97 01/30/20 21:27 69 141/75 01/30/20 21:00 Nasal Cannula 2.0 01/30/20 20:00 98.1 68 16 138/71 (93) 99 01/30/20 20:00 67 01/30/20 16:00 67 01/30/20 16:00 97.7 18 129/71 (90) 01/30/20 12:00 62 01/30/20 12:00 97.8 68 18 120/71 (87) 01/30/20 09:00 58 132/72 01/30/20 09:00 58 01/30/20 09:00 Nasal Cannula 2.0 Intake and Output 01/30/20 01/31/20 18:59 06:59 Intake Total 240 ml Balance 240 ml Intake Oral 240 ml # Voids 3 3 # Bowel Movements 3 2 General Appearance: no acute distress, cachetic - elderly [place]ian speaking female HEENT: normocephalic, atraumatic, anicteric, mucous membranes moist Respiratory: lungs clear - with decreased BS, no respiratory distress, no accessory muscle use Cardiovascular: regular rhythm - paced, , tachycardia, pacemaker/AICD - left upper chest Abdomen: soft, non tender, non distended Extremities: no edema Skin: other - R chest with healed scar Neurologic: alert, responsive, depressed affect Musculoskeletal: atrophy - BLE Microbiology Date/Time Source Procedure Growth Status 01/28/20 15:06 Nasopharynx SARS-CoV-2 RdRp Gene Assay - Final Complete Current Medications Medications (Trade) Dose Ordered Sig/Escobar Route PRN Reason Start Time Stop Time Status Last Admin Dose Admin Acetaminophen (Tylenol) 650 mg Q4H PRN ORAL fever 01/28/20 16:30 02/27/20 16:29 Acetaminophen (Tylenol) 650 mg Q6H PRN ORAL Mild Pain (Pain Scale 1-3) 01/30/20 03:00 02/29/20 02:59 Acetaminophen/ Hydrocodone Bitart ([place] 5/325) 1 tab Q6H PRN ORAL Moderate Pain (Pain Scale 4-6) 01/30/20 03:00 02/06/20 02:59 Amiodarone HCl (Cordarone) 200 mg DAILY ORAL 01/30/20 09:00 04/29/20 08:59 01/31/20 08:23 Barium Sulfate (Readi-Cat 2) 450 ml NOW PRN ORAL Radiology Procedure 01/30/20 03:00 02/01/20 02:59 Dextrose (Dextrose 50%) 25 ml Q30M PRN IV Hypoglycemia 01/28/20 16:30 02/27/20 16:18 Dextrose (Dextrose 50%) 50 ml Q30M PRN IV hypoglycemia 01/28/20 16:30 04/27/20 16:29 Digoxin (Lanoxin) 0.125 mg DAILY ORAL 01/30/20 09:00 04/29/20 08:59 01/31/20 08:23 Digoxin (Lanoxin) 0.25 mg ONCE IVP 01/31/20 08:00 01/31/20 11:00 01/31/20 08:23 Heparin Sodium (Porcine) (Heparin 5000 units/ml) 5,000 units EVERY 12 HOURS SUBQ 01/29/20 21:00 03/14/20 20:59 01/31/20 08:22 Iohexol (OMNIPAQUE-300 100ml) 100 ml NOW PRN INJ Radiology Procedure 01/30/20 03:00 02/01/20 02:59 Iohexol (Omnipaque 350 100ml) 100 ml NOW PRN INJ Radiology Procedure 01/29/20 20:45 01/31/20 20:44 Levothyroxine Sodium (Synthroid) 25 mcg DAILY@0630 ORAL 01/31/20 06:30 03/01/20 06:29 01/31/20 07:21 Metoprolol Tartrate (Lopressor) 25 mg Q12HR ORAL 01/29/20 21:00 04/28/20 20:59 01/30/20 21:27 Ondansetron HCl (Zofran) 4 mg Q6H PRN IVP Nausea & Vomiting 01/28/20 16:30 02/27/20 16:29 Pantoprazole (Protonix) 40 mg DAILY ORAL 01/30/20 09:00 02/29/20 08:59 01/31/20 08:23 Polyethylene Glycol (Miralax) 17 gm HSPRN PRN ORAL Constipation 01/28/20 16:30 02/27/20 16:29 Zolpidem Tartrate (Ambien) 5 mg HSPRN PRN ORAL Insomnia 01/28/20 16:30 02/04/20 16:29 01/29/20 21:42 Assessment/Plan Assessment/Plan ASSESSMENT Acute profound symptomatic anemia Myelofibrosis and myelodysplasia Polycythemia vera Chronic atrial fibrillation Right hemothorax (June 2019), s/p VATS Pulmonary hypertension KELVIN Severe protein calorie malnutrition SSS, status post pacemaker placement (2010), generator change (2018) HTN Elevated TSH-> hypothyroidism PLAN OF CARE telemetry s/p 5 units PRBC Hgb up monitor H&H with goal to keep hemoglobin above 7 O2 titrate to keep sat above 92% DVT prophylaxis with SCD CXR with small R pleural effusion CT chest pending rate control with amiodarone ,digoxin beta-kelli no anticoagulation given severe anemia check free T4 , T3 given elevated TSH and amiodarone use T3 low, elevated TSH, started low dose Synthroid gentle IV hydration monitor renal parameters, electrolytes , correct electrolytes as needed dietary eval regarding protein supplements supportive care case discussed and evaluated by supervising physician Cait Melchor NP Jan 31, 2020 08:48
--- NOTE | 2020-01-31 08:49 | NUR ---
NURSE NOTES: Night nurse received order for digoxin 0.5mg and Cardizem 10mg IV push for A.fib W/ RVR. Order carried out.
[2020-01-31 09:16] LABS: BASOPHILS % (AUTO) 5.7 % (0.0-2.0); EOSINOPHILS % (AUTO) 0.3 % (0.0-3.0); HEMATOCRIT 35.6 % (37.0-47.0); HEMOGLOBIN 12.2 G/DL (12.0-16.0); LYMPHOCYTES % (AUTO) 9.6 % (20.0-45.0); MEAN CORPUSCULAR VOLUME 81 FL (80-99); MONOCYTES % (AUTO) 4.3 % (1.0-10.0); PLATELET COUNT 211 K/UL (150-450); RED CELL DISTRIBUTION WIDTH 16.6 % (11.6-14.8); WHITE BLOOD COUNT 7.1 K/UL (4.8-10.8)
[2020-01-31 09:19] LABS: ANION GAP 7 mmol/L (5-15); BLOOD UREA NITROGEN 26 mg/dL (7-18); CALCIUM 8.1 MG/DL (8.5-10.1); CARBON DIOXIDE 24 MMOL/L (21-32); CHLORIDE 107 MMOL/L (98-107); CREATININE 0.7 MG/DL (0.55-1.30); POTASSIUM 4.2 MMOL/L (3.5-5.1); SODIUM 137 MMOL/L (136-145)
--- NOTE | 2020-01-31 11:30 | NUR ---
NURSE NOTES: Patient's heart rate went down to low 100's, asymptomatic, repositioned and cleaned. Will continue to monitor.
--- NOTE | 2020-01-31 11:56 | Surgery Progress Note ---
Surgery Progress Note Subjective Additional Comments h/h stable no sob no discomfort no n/v/f/c Objective Last 24 Hour Vital Signs Date Time Temp Pulse Resp B/P (MAP) Pulse Ox O2 Delivery O2 Flow Rate FiO2 01/31/20 09:00 Nasal Cannula 2.0 01/31/20 08:24 133 100/64 01/31/20 08:23 133 100/64 01/31/20 08:23 133 01/31/20 08:23 133 01/31/20 08:00 170 01/31/20 08:00 97.7 133 18 100/64 (76) 96 01/31/20 04:00 97.5 134 18 110/78 (89) 99 01/31/20 00:00 66 01/31/20 00:00 97.9 62 18 136/82 (100) 97 01/30/20 21:27 69 141/75 01/30/20 21:00 Nasal Cannula 2.0 01/30/20 20:00 98.1 68 16 138/71 (93) 99 01/30/20 20:00 67 01/30/20 16:00 67 01/30/20 16:00 97.7 18 129/71 (90) 01/30/20 12:00 62 01/30/20 12:00 97.8 68 18 120/71 (87) I&O Intake and Output 01/30/20 01/31/20 19:00 07:00 Intake Total 240 ml Balance 240 ml Intake Oral 240 ml # Voids 3 3 # Bowel Movements 3 2 Cardiovascular: RSR Respiratory: decreased breath sounds Abdomen: soft, flat, non-tender, present bowel sounds Extremities: no edema, no tenderness, no cyanosis Laboratory Tests Test 01/31/20 08:50 White Blood Count 7.1 K/UL (4.8-10.8) Red Blood Count 4.40 M/UL (4.20-5.40) Hemoglobin 12.2 G/DL (12.0-16.0) Hematocrit 35.6 % (37.0-47.0) L Mean Corpuscular Volume 81 FL (80-99) Mean Corpuscular Hemoglobin 27.7 PG (27.0-31.0) Mean Corpuscular Hemoglobin Concent 34.2 G/DL (32.0-36.0) Red Cell Distribution Width 16.6 % (11.6-14.8) H Platelet Count 211 K/UL (150-450) Mean Platelet Volume 13.7 FL (6.5-10.1) H Neutrophils (%) (Auto) 80.0 % (45.0-75.0) H Lymphocytes (%) (Auto) 9.6 % (20.0-45.0) L Monocytes (%) (Auto) 4.3 % (1.0-10.0) Eosinophils (%) (Auto) 0.3 % (0.0-3.0) Basophils (%) (Auto) 5.7 % (0.0-2.0) H Sodium Level 137 MMOL/L (136-145) Potassium Level 4.2 MMOL/L (3.5-5.1) Chloride Level 107 MMOL/L (98-107) Carbon Dioxide Level 24 MMOL/L (21-32) Anion Gap 7 mmol/L (5-15) Blood Urea Nitrogen 26 mg/dL (7-18) H Creatinine 0.7 MG/DL (0.55-1.30) Estimat Glomerular Filtration Rate > 60 mL/min (>60) Glucose Level 112 MG/DL (74-106) H Calcium Level 8.1 MG/DL (8.5-10.1) L Plan Problems: (1) Generalized weakness (2) Symptomatic anemia (3) Protein-calorie malnutrition, severe (4) Severe anemia (5) ACS (acute coronary syndrome) (6) Pyelonephritis (7) CAD (coronary artery disease) (8) COPD (chronic obstructive pulmonary disease) (9) positional vertigo (10) KELVIN (obstructive sleep apnea) (11) Peripheral neuropathy (12) Myelofibrosis (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 hx of bleeding held anticoagulation since prior right hemothorax s/p evacuation and vats transfusing prbc coags noted ddx includes possible GI hemorrhage. possible blood disorder protonix prior imaging reviewed as below abnormal lft's likely heme breakdown products thank you will follow with recs trend h/h transfuse prn Gallbladder demonstrates a gallstone. This also reported on same day CT. Sonographic Camacho's sign is negative. Common bile duct measures 5 mm in diameter. No intrahepatic biliary ductal dilatation. Liver demonstrates normal echogenicity, no focal abnormality. Portal vein and hepatic veins are patent. Pancreas is unremarkable. The spleen demonstrates a complex upper pole cyst that measures 2.7 cm in diameter. The spleen is borderline enlarged. There are bilateral pleural effusions Left kidney measures 10.2 cm in length. Right kidney measures 9.2 cm length. Both kidneys demonstrate normal echogenicity. There is no hydronephrosis. No focal abnormality . Non-aneurysmal abdominal aorta . Impression: Cholelithiasis. Negative for dilated bile ducts 2.7 cm complex upper pole splenic cyst, also reported on prior imaging studies. Bilateral pleural effusions Chest: The lungs demonstrate a mosaic perfusion pattern, which is more striking than that seen previously. Some atelectasis and consolidation is seen involving both lower lobes. This appears similar on the right, slightly more extensive on the left. There is a moderate-sized right pleural effusion which appears similar to the previous study. There is a small left pleural effusion which is new since the previous study. Previous exam demonstrated a 1.5 cm opacity in the inferior right azygoesophageal recess. This is not evident currently although could be obscured by surrounding atelectatic lung. The heart is enlarged. There is a left chest pacemaker again demonstrated. No pericardial effusion. No mediastinal or hilar mass or adenopathy. Right lower pole thyroid calcification is again demonstrated. No axillary or chest wall mass or adenopathy. There are fairly profound degenerative changes of the bilateral shoulders. There is evidence of interim healing of previously demonstrated right rib fractures, nearly but not completely healed as some fracture lines persist. There are degenerative changes of the thoracic spine noted. Abdomen pelvis: What is probably a normal appendix is demonstrated. There is extensive colonic diverticulosis. No evidence of diverticulitis. The rectum is mildly distended, mostly with gas with some stool as well. No small bowel distention or small bowel wall thickening. Numerous surgical clips are seen in the retroperitoneum and left side of the pelvis. The stomach and duodenum are unremarkable. The gallbladder contains a gallstone. No biliary ductal dilatation. The liver is mildly enlarged. The pancreas is unremarkable. The spleen is enlarged, measuring 14 cm long axis dimension. It demonstrates a complex upper pole cyst, also previously demonstrated the adrenals and kidneys are unremarkable. There is a retroaortic left renal vein incidentally noted. The uterus is absent.. The bladder is unremarkable. The bones demonstrate degenerative spondylosis changes. IMPRESSION: Cardiomegaly Unchanged moderate right pleural effusion, since June 2019. New small left pleural effusion Bilateral mosaic perfusion pattern, probably on the basis of pulmonary edema Bilateral basilar compressive atelectasis and possible consolidation Interim healing of previously demonstrated right rib fractures Previously demonstrated right azygoesophageal recess lesion is no longer evident, may have resolved or may be obscured by surrounding lung parenchyma. Cholelithiasis Hepatomegaly Splenomegaly Splenic cystic lesion, unchanged from prior exam Postsurgical changes as described, including pacemaker, evidence of prior hysterectomy, evidence of prior pelvic lymph node dissection, prior hysterectomy Errol Estrada Jan 31, 2020 11:56
[2020-01-31 12:00] VITALS: BP 101/71
--- NOTE | 2020-01-31 12:35 | Internal Med Progress Note ---
Subjective Date of Service: Jan 31, 2020 Physician Name GraceRoshan Attending Physician Antonio Adrian MD Current Medications Medications (Trade) Dose Ordered Sig/Escobar Route PRN Reason Start Time Stop Time Status Last Admin Dose Admin Acetaminophen (Tylenol) 650 mg Q4H PRN ORAL fever 01/28/20 16:30 02/27/20 16:29 Acetaminophen (Tylenol) 650 mg Q6H PRN ORAL Mild Pain (Pain Scale 1-3) 01/30/20 03:00 02/29/20 02:59 Acetaminophen/ Hydrocodone Bitart ([place] 5/325) 1 tab Q6H PRN ORAL Moderate Pain (Pain Scale 4-6) 01/30/20 03:00 02/06/20 02:59 Amiodarone HCl (Cordarone) 200 mg DAILY ORAL 01/30/20 09:00 04/29/20 08:59 01/31/20 08:23 Barium Sulfate (Readi-Cat 2) 450 ml NOW PRN ORAL Radiology Procedure 01/30/20 03:00 02/01/20 02:59 Dextrose (Dextrose 50%) 25 ml Q30M PRN IV Hypoglycemia 01/28/20 16:30 02/27/20 16:18 Dextrose (Dextrose 50%) 50 ml Q30M PRN IV hypoglycemia 01/28/20 16:30 04/27/20 16:29 Digoxin (Lanoxin) 0.125 mg DAILY ORAL 01/30/20 09:00 04/29/20 08:59 01/31/20 08:23 Heparin Sodium (Porcine) (Heparin 5000 units/ml) 5,000 units EVERY 12 HOURS SUBQ 01/29/20 21:00 03/14/20 20:59 01/31/20 08:22 Iohexol (OMNIPAQUE-300 100ml) 100 ml NOW PRN INJ Radiology Procedure 01/30/20 03:00 02/01/20 02:59 Iohexol (Omnipaque 350 100ml) 100 ml NOW PRN INJ Radiology Procedure 01/29/20 20:45 01/31/20 20:44 Levothyroxine Sodium (Synthroid) 25 mcg DAILY@0630 ORAL 01/31/20 06:30 03/01/20 06:29 01/31/20 07:21 Metoprolol Tartrate (Lopressor) 25 mg Q12HR ORAL 01/29/20 21:00 04/28/20 20:59 01/30/20 21:27 Ondansetron HCl (Zofran) 4 mg Q6H PRN IVP Nausea & Vomiting 01/28/20 16:30 02/27/20 16:29 Pantoprazole (Protonix) 40 mg DAILY ORAL 01/30/20 09:00 02/29/20 08:59 01/31/20 08:23 Polyethylene Glycol (Miralax) 17 gm HSPRN PRN ORAL Constipation 01/28/20 16:30 02/27/20 16:29 Zolpidem Tartrate (Ambien) 5 mg HSPRN PRN ORAL Insomnia 01/28/20 16:30 02/04/20 16:29 01/29/20 21:42 Allergies: Coded Allergies: No Known Allergies (Unverified , 04/24/18) ROS Limited/Unobtainable: No Constitutional: Reports: weakness HEENT: Reports: no symptoms Cardiovascular: Reports: no symptoms Respiratory: Reports: no symptoms Gastrointestinal/Abdominal: Reports: no symptoms Genitourinary: Reports: no symptoms Neurologic/Psychiatric: Reports: no symptoms Subjective 79 YO F with history of myelodysplastic syndrome admitted with gen weakness and fatigue. Now severe anemia. Cover for Int med-Dr Adrian Objective Last Vital Signs Date Time Temp Pulse Resp B/P (MAP) Pulse Ox O2 Delivery O2 Flow Rate FiO2 01/31/20 09:00 Nasal Cannula 2.0 01/31/20 08:24 133 100/64 01/31/20 08:00 97.7 18 96 Laboratory Tests Test 01/31/20 08:50 White Blood Count 7.1 K/UL (4.8-10.8) Red Blood Count 4.40 M/UL (4.20-5.40) Hemoglobin 12.2 G/DL (12.0-16.0) Hematocrit 35.6 % (37.0-47.0) L Mean Corpuscular Volume 81 FL (80-99) Mean Corpuscular Hemoglobin 27.7 PG (27.0-31.0) Mean Corpuscular Hemoglobin Concent 34.2 G/DL (32.0-36.0) Red Cell Distribution Width 16.6 % (11.6-14.8) H Platelet Count 211 K/UL (150-450) Mean Platelet Volume 13.7 FL (6.5-10.1) H Neutrophils (%) (Auto) 80.0 % (45.0-75.0) H Lymphocytes (%) (Auto) 9.6 % (20.0-45.0) L Monocytes (%) (Auto) 4.3 % (1.0-10.0) Eosinophils (%) (Auto) 0.3 % (0.0-3.0) Basophils (%) (Auto) 5.7 % (0.0-2.0) H Sodium Level 137 MMOL/L (136-145) Potassium Level 4.2 MMOL/L (3.5-5.1) Chloride Level 107 MMOL/L (98-107) Carbon Dioxide Level 24 MMOL/L (21-32) Anion Gap 7 mmol/L (5-15) Blood Urea Nitrogen 26 mg/dL (7-18) H Creatinine 0.7 MG/DL (0.55-1.30) Estimat Glomerular Filtration Rate > 60 mL/min (>60) Glucose Level 112 MG/DL (74-106) H Calcium Level 8.1 MG/DL (8.5-10.1) L Microbiology Date/Time Source Procedure Growth Status 01/28/20 15:06 Nasopharynx SARS-CoV-2 RdRp Gene Assay - Final Complete Intake and Output 01/30/20 01/31/20 19:00 07:00 Intake Total 240 ml Balance 240 ml Intake Oral 240 ml # Voids 3 3 # Bowel Movements 3 2 Objective PHYSICAL EXAMINATION: GENERAL: Patient is cachectic, malnutrition, very chronic ill-appearing, awake, responsive. HEAD AND NECK: Pupils equal and reactive to light. Extraocular movements intact. Neck was supple. No JVD. LUNGS: Good air entry. No wheezing or rhonchi. Decreased air entry in bases. HEART: S1, S2. Irregular. No murmur or gallop. Patient has a pacemaker in left-sided chest wall. ABDOMEN: Soft, nondistended, nontender. Positive bowel sounds. Neg for hepatosplenomegaly, rebound or guarding EXTREMITIES: No cyanosis, clubbing, or edema. Muscle atrophy bilateral lower extremities was noted. NEUROLOGIC: Cranial nerves II through XII grossly intact. Patient moving all the extremities. Gait was not assessed due to patient's status. RECTAL: Refused and deferred. GENITOURINARY: Refused and deferred. PSYCHIATRIC: Mood and affect is intact. Assessment/Plan Assessment/Plan ASSESSMENT: 1. Severe anemia, most likely secondary to myelodysplastic syndrome and myelofibrosis. improved 2. Hypotension, most likely secondary to dehydration as well as profound anemia. 3. Chronic atrial fibrillation. 4. History of polycythemia vera. 5. History of JAK2 mutation. 6. Myelofibrosis and myelodysplastic syndrome. 7. Hypertension. 8. Coronary artery disease. 9. Dyslipidemia. 10. Chronic congestive heart failure. 11. History of right hemothorax, status post video-assisted thoracotomy exploration on 07/02/2019. 12. Sick sinus syndrome with status post pacemaker. 13. Failure to thrive. 14. Severe protein-calorie malnutrition. 15. COVID 19 neg PLAN: 1. Admit patient to monitored unit. 2. Dr. Mejia = Pulmonary Critical Care 3. Dr. Freitas = Cardiology/Electrophysiology. 4. S/P Transfusion 6 units of packed RBC. 5. CT angio of the chest = neg for PE. 6. DVT prophylaxis, heparin subcutaneous. 7. Code status is Full Code. Roshan Edwards MD Jan 31, 2020 12:35
[2020-01-31 16:00] VITALS: BP 105/74
--- NOTE | 2020-01-31 19:10 | NUR ---
NURSE HAND-OFF REPORT: Important Events on Shift:Patient's Heart rate went down, in stable condition Patient Status: stable condition Diet: regular Pending Orders: N/A Pending Results/Labs:morning labs Pending MD notification:N/A Latest Vital Signs: Temperature 97.7 , Pulse 107 , B/P 105 /74 , Respiratory Rate 17 , O2 SAT 100 , Nasal Cannula, O2 Flow Rate 2.0 . Vital Sign Comment: tachy EKG Rhythm: Atrial Fibrillation Rhythm change?: N MD Notified?: Alexi Freitas MD Response: Latest Yepez Fall Score: 30 Fall Risk: Medium Risk Safety Measures: Call light Within Reach, Bed Alarm Zone 1, Side Rails Side Rails x3, Bed position Low and Locked. Fall Precautions: Yellow Socks Yellow Gown Door Sign Patient Fall Education Report given to Gho/RN.
--- NOTE | 2020-01-31 19:15 | NUR ---
NURSE NOTES: Receive a report from IRA Minaya.
--- NOTE | 2020-01-31 19:30 | NUR ---
NURSE NOTES: Pt is asleep but easily aroused. No acute distress noted. Breathing is even and non labored. Reapply O2 2L NC. Denies chest pain/ discomfort. On isolation for PUI. Call light within reach. Provide fall precautions. On bed alarm. Will continue to monitor.
[2020-01-31 20:00] VITALS: BP 125/73
[2020-02-01] VITALS: BP 122/66
[2020-02-01 04:00] VITALS: BP 126/69
[2020-02-01] MEDS: Levothyroxine 25mcg tab ORAL SCH (06:28)
[2020-02-01 07:23] LABS: BASOPHILS % (AUTO) 5.6 % (0.0-2.0); EOSINOPHILS % (AUTO) 0.5 % (0.0-3.0); HEMATOCRIT 33.3 % (37.0-47.0); HEMOGLOBIN 11.1 G/DL (12.0-16.0); LYMPHOCYTES % (AUTO) 24.5 % (20.0-45.0); MEAN CORPUSCULAR VOLUME 85 FL (80-99); MONOCYTES % (AUTO) 3.1 % (1.0-10.0); NEUTROPHILS % (AUTO) 66.4 % (45.0-75.0); PLATELET COUNT 165 K/UL (150-450); RED CELL DISTRIBUTION WIDTH 16.7 % (11.6-14.8)
--- NOTE | 2020-02-01 07:30 | NUR ---
NURSE HAND-OFF: Important Events on Shift: No acute distress/ Denies pain/ skin intact. Patient Status: [Stable] Diet: [regular] Pending Orders: [] Pending Results/Labs:[] Pending MD notification:[] Latest Vital Signs: Temperature 97.1 , Pulse 65 , B/P 121 /64 , Respiratory Rate 20 , O2 SAT 97 , Nasal Cannula, O2 Flow Rate 2.0 . Vital Sign Comment: [] Latest Yepez Fall Score: 30 Fall Risk: Medium Risk Safety Measures: Call light Within Reach, Bed Alarm Zone 1, Side Rails Side Rails x3, Bed position Low and Locked. Fall Precautions: Yellow Socks Yellow Gown Door Sign Patient Fall Education Report given to IRA Romo. Round is made.
[2020-02-01 07:32] LABS: ALANINE AMINOTRANSFERASE 25 U/L (12-78); ALBUMIN 2.2 G/DL (3.4-5.0); ALBUMIN/GLOBULIN RATIO 0.7 (1.0-2.7); ALKALINE PHOSPHATASE 49 U/L (46-116); ANION GAP 5 mmol/L (5-15); ASPARTATE AMINO TRANSFERASE 17 U/L (15-37); BILIRUBIN,TOTAL 0.8 MG/DL (0.2-1.0); BLOOD UREA NITROGEN 24 mg/dL (7-18); CARBON DIOXIDE 26 MMOL/L (21-32); CHLORIDE 107 MMOL/L (98-107); CREATININE 0.7 MG/DL (0.55-1.30); POTASSIUM 4.4 MMOL/L (3.5-5.1); SODIUM 138 MMOL/L (136-145)
--- NOTE | 2020-02-01 07:47 | NUR ---
NURSE NOTES: Patient seen asleep in low fowlers position receiving supplemental oxygen via nasal cannula at 2L/min with no acute signs of distress. The bed was positioned at the lowest position, locked, side rails x3, call light within reach, yellow socks on and bed alarm set to zone 1.
[2020-02-01 08:00] VITALS: BP 127/73
--- NOTE | 2020-02-01 08:11 | NUR ---
CASE MANAGEMENT:REVIEW 02/01/20 SI: SYMPTOMATIC ANEMIA...S/P 6 UNITS PAFIB W/RVR. BILATERAL PLEURAL EFFUSIONS 99.5 66 20 122/66 96% ON 2L/NC BUN+21 IS: SYNTHROID PO QD DIGOXIN PO QD AMIODARONE PO QD LOPRESSOR PO Q12 HEPARIN SQ Q12 : TELEMETRY STATUS DCP: FROM HOME PLAN: HR 133 YESTERDAY ~ RECEIVED IV DIGOXIN ~ ~ MONITOR
[2020-02-01] MEDS: Digoxin 0.125mg tab ORAL SCH (08:15)
[2020-02-01] MEDS: Amiodarone 200mg tab ORAL SCH (08:19)
[2020-02-01] MEDS: Heparin 5000 units/ml inj SUBQ SCH ×2 (08:20→21:10)
--- NOTE | 2020-02-01 11:25 | Cardiac Electrophysiology PN ---
Assessment/Plan Assessment/Plan 1. Hypertension. On Lopressor 25 po bid 2. Status post [employer] pacemaker in 2011 and generator change by me in 2019. 3. Paroxysmal atrial fibrillation with rapid ventricular response. On digoxin, metoprolol, and amiodarone. Off anticoagulation for recurrent bleeding and profound anemia. Digoxin level less than 0.2 4. Profound anemia with hemoglobin of 3 to 4. S/P 6 units of blood transfusion. Fu by Dr. Kaplan. 5. History of hemothorax, status post VATS. 6. History for pulmonary hypertension. 7. Polycythemia vera. 8. Myelofibrosis. Subjective Subjective Received total of 6 units of PRBC. Rapid Covid is negative. Covid PCR is pending Objective Last 24 Hour Vital Signs Date Time Temp Pulse Resp B/P (MAP) Pulse Ox O2 Delivery O2 Flow Rate FiO2 02/01/20 09:00 Nasal Cannula 2.0 02/01/20 08:19 65 121/64 02/01/20 08:15 65 02/01/20 08:00 60 02/01/20 08:00 97.5 78 20 127/73 (91) 98 02/01/20 04:00 97.1 64 20 126/69 (88) 97 02/01/20 04:00 60 02/01/20 00:00 61 02/01/20 00:00 99.5 66 20 122/66 (84) 96 01/31/20 22:42 94 125/73 01/31/20 21:00 Nasal Cannula 2.0 01/31/20 20:00 110 01/31/20 20:00 97.7 94 20 125/73 (90) 100 01/31/20 16:00 97.7 108 17 105/74 (84) 100 01/31/20 16:00 107 01/31/20 12:00 116 01/31/20 12:00 98.1 116 19 101/71 (81) 100 Intake and Output 01/31/20 02/01/20 19:00 07:00 Intake Total 320 ml 200 ml Balance 320 ml 200 ml Intake Oral 320 ml 200 ml # Voids 1 4 Laboratory Tests Test 02/01/20 05:20 White Blood Count 6.0 K/UL (4.8-10.8) Red Blood Count 3.90 M/UL (4.20-5.40) L Hemoglobin 11.1 G/DL (12.0-16.0) L Hematocrit 33.3 % (37.0-47.0) L Mean Corpuscular Volume 85 FL (80-99) Mean Corpuscular Hemoglobin 28.5 PG (27.0-31.0) Mean Corpuscular Hemoglobin Concent 33.4 G/DL (32.0-36.0) Red Cell Distribution Width 16.7 % (11.6-14.8) H Platelet Count 165 K/UL (150-450) Mean Platelet Volume 12.1 FL (6.5-10.1) H Neutrophils (%) (Auto) 66.4 % (45.0-75.0) Lymphocytes (%) (Auto) 24.5 % (20.0-45.0) Monocytes (%) (Auto) 3.1 % (1.0-10.0) Eosinophils (%) (Auto) 0.5 % (0.0-3.0) Basophils (%) (Auto) 5.6 % (0.0-2.0) H Sodium Level 138 MMOL/L (136-145) Potassium Level 4.4 MMOL/L (3.5-5.1) Chloride Level 107 MMOL/L (98-107) Carbon Dioxide Level 26 MMOL/L (21-32) Anion Gap 5 mmol/L (5-15) Blood Urea Nitrogen 24 mg/dL (7-18) H Creatinine 0.7 MG/DL (0.55-1.30) Estimat Glomerular Filtration Rate > 60 mL/min (>60) Glucose Level 86 MG/DL (74-106) Calcium Level 8.0 MG/DL (8.5-10.1) L Total Bilirubin 0.8 MG/DL (0.2-1.0) Aspartate Amino Transf (AST/SGOT) 17 U/L (15-37) Alanine Aminotransferase (ALT/SGPT) 25 U/L (12-78) Alkaline Phosphatase 49 U/L (46-116) Total Protein 5.4 G/DL (6.4-8.2) L Albumin 2.2 G/DL (3.4-5.0) L Globulin 3.2 g/dL Albumin/Globulin Ratio 0.7 (1.0-2.7) L Objective HEAD AND NECK: No JVD. LUNGS: Coarse rhonchi. CARDIOVASCULAR: Regular S1 and S2 with no gallop or murmur. ABDOMEN: Soft. EXTREMITIES: 1+ pitting edema. River Freitas MD Feb 01, 2020 11:24
[2020-02-01 12:00] VITALS: BP 140/80
--- NOTE | 2020-02-01 14:40 | Diagnostic Imaging Report ---
Indication: Shortness of breath Technique: One view of the chest Comparison: 01/28/2020 Findings: There is slightly increased pleural fluid, increased interstitial and airspace infiltrates versus edema bilaterally. The heart is enlarged. There is a left chest pacemaker again demonstrated. There are degenerative changes of both shoulders Impression: Increased pleural fluid and bilateral interstitial and airspace edema versus infiltrates, since prior study
--- NOTE | 2020-02-01 14:47 | NUR ---
RADIOLOGY DEPT., CHEST X-RAY DONE.-P.DYE
--- NOTE | 2020-02-01 15:44 | Pulmonology Progress Note ---
Subjective ROS Limited/Unobtainable: No Constitutional: Reports: no symptoms HEENT: Repors: no symptoms Respiratory: Reports: no symptoms Allergies: Coded Allergies: No Known Allergies (Unverified , 04/24/18) Objective Last 24 Hour Vital Signs Date Time Temp Pulse Resp B/P (MAP) Pulse Ox O2 Delivery O2 Flow Rate FiO2 02/01/20 12:00 97.3 82 20 140/80 (100) 96 02/01/20 12:00 60 02/01/20 09:00 Nasal Cannula 2.0 02/01/20 08:19 65 121/64 02/01/20 08:15 65 02/01/20 08:00 60 02/01/20 08:00 97.5 78 20 127/73 (91) 98 02/01/20 04:00 97.1 64 20 126/69 (88) 97 02/01/20 04:00 60 02/01/20 00:00 61 02/01/20 00:00 99.5 66 20 122/66 (84) 96 01/31/20 22:42 94 125/73 01/31/20 21:00 Nasal Cannula 2.0 01/31/20 20:00 110 01/31/20 20:00 97.7 94 20 125/73 (90) 100 01/31/20 16:00 97.7 108 17 105/74 (84) 100 01/31/20 16:00 107 Intake and Output 01/31/20 02/01/20 19:00 07:00 Intake Total 320 ml 200 ml Balance 320 ml 200 ml Intake Oral 320 ml 200 ml # Voids 1 4 General Appearance: no acute distress, cachetic - elderly Tristanian speaking female HEENT: normocephalic, atraumatic, anicteric, mucous membranes moist Respiratory: lungs clear - with decreased BS, no respiratory distress, no accessory muscle use Cardiovascular: regular rhythm - paced, , tachycardia, pacemaker/AICD - left upper chest Abdomen: soft, non tender, non distended Extremities: no edema Skin: other - R chest with healed scar Neurologic: alert, responsive, depressed affect Musculoskeletal: atrophy - BLE Laboratory Tests 02/01/20 05:20: White Blood Count 6.0, Red Blood Count 3.90L, Hemoglobin 11.1L, Hematocrit 33.3L , Mean Corpuscular Volume 85, Mean Corpuscular Hemoglobin 28.5, Mean Corpuscular Hemoglobin Concent 33.4, Red Cell Distribution Width 16.7H, Platelet Count 165, Mean Platelet Volume 12.1H, Neutrophils (%) (Auto) 66.4, Lymphocytes (%) (Auto) 24.5, Monocytes (%) (Auto) 3.1, Eosinophils (%) (Auto) 0.5, Basophils (%) (Auto) 5.6H, Sodium Level 138, Potassium Level 4.4, Chloride Level 107, Carbon Dioxide Level 26, Anion Gap 5, Blood Urea Nitrogen 24H, Creatinine 0.7, Estimat Glomerular Filtration Rate > 60, Glucose Level 86, Calcium Level 8.0L, Total Bilirubin 0.8, Aspartate Amino Transf (AST/SGOT) 17, Alanine Aminotransferase (ALT/SGPT) 25, Alkaline Phosphatase 49, Total Protein 5.4L, Albumin 2.2L, Glob ulin 3.2, Albumin/Globulin Ratio 0.7L Current Medications Medications (Trade) Dose Ordered Sig/Escobar Route PRN Reason Start Time Stop Time Status Last Admin Dose Admin Acetaminophen (Tylenol) 650 mg Q4H PRN ORAL fever 01/28/20 16:30 02/27/20 16:29 Acetaminophen (Tylenol) 650 mg Q6H PRN ORAL Mild Pain (Pain Scale 1-3) 01/30/20 03:00 02/29/20 02:59 Acetaminophen/ Hydrocodone Bitart ([place] 5/325) 1 tab Q6H PRN ORAL Moderate Pain (Pain Scale 4-6) 01/30/20 03:00 02/06/20 02:59 Amiodarone HCl (Cordarone) 200 mg DAILY ORAL 01/30/20 09:00 04/29/20 08:59 02/01/20 08:19 Dextrose (Dextrose 50%) 25 ml Q30M PRN IV Hypoglycemia 01/28/20 16:30 02/27/20 16:18 Dextrose (Dextrose 50%) 50 ml Q30M PRN IV hypoglycemia 01/28/20 16:30 04/27/20 16:29 Digoxin (Lanoxin) 0.125 mg DAILY ORAL 01/30/20 09:00 04/29/20 08:59 02/01/20 08:15 Heparin Sodium (Porcine) (Heparin 5000 units/ml) 5,000 units EVERY 12 HOURS SUBQ 01/29/20 21:00 03/14/20 20:59 02/01/20 08:20 Levothyroxine Sodium (Synthroid) 25 mcg DAILY@0630 ORAL 01/31/20 06:30 03/01/20 06:29 02/01/20 06:28 Metoprolol Tartrate (Lopressor) 25 mg Q12HR ORAL 01/29/20 21:00 04/28/20 20:59 02/01/20 08:19 Ondansetron HCl (Zofran) 4 mg Q6H PRN IVP Nausea & Vomiting 01/28/20 16:30 02/27/20 16:29 Pantoprazole (Protonix) 40 mg DAILY ORAL 01/30/20 09:00 02/29/20 08:59 02/01/20 08:15 Polyethylene Glycol (Miralax) 17 gm HSPRN PRN ORAL Constipation 01/28/20 16:30 02/27/20 16:29 Zolpidem Tartrate (Ambien) 5 mg HSPRN PRN ORAL Insomnia 01/28/20 16:30 02/04/20 16:29 01/29/20 21:42 Assessment/Plan Problems: (1) Severe anemia (2) Myelofibrosis (3) COPD (chronic obstructive pulmonary disease) (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
[2020-02-01 16:00] VITALS: BP 124/68
--- NOTE | 2020-02-01 17:04 | Surgery Progress Note ---
Surgery Progress Note Subjective Symptoms: improved, pain absent, tolerating diet, voiding well, passing flatus, BM Objective Last 24 Hour Vital Signs Date Time Temp Pulse Resp B/P (MAP) Pulse Ox O2 Delivery O2 Flow Rate FiO2 02/01/20 12:00 97.3 82 20 140/80 (100) 96 02/01/20 12:00 60 02/01/20 09:00 Nasal Cannula 2.0 02/01/20 08:19 65 121/64 02/01/20 08:15 65 02/01/20 08:00 60 02/01/20 08:00 97.5 78 20 127/73 (91) 98 02/01/20 04:00 97.1 64 20 126/69 (88) 97 02/01/20 04:00 60 02/01/20 00:00 61 02/01/20 00:00 99.5 66 20 122/66 (84) 96 01/31/20 22:42 94 125/73 01/31/20 21:00 Nasal Cannula 2.0 01/31/20 20:00 110 01/31/20 20:00 97.7 94 20 125/73 (90) 100 I&O Intake and Output 01/31/20 02/01/20 19:00 07:00 Intake Total 320 ml 200 ml Balance 320 ml 200 ml Intake Oral 320 ml 200 ml # Voids 1 4 Cardiovascular: RSR Respiratory: clear Abdomen: soft, non-tender, present bowel sounds Extremities: no edema, no tenderness, no cyanosis Laboratory Tests Test 02/01/20 05:20 White Blood Count 6.0 K/UL (4.8-10.8) Red Blood Count 3.90 M/UL (4.20-5.40) L Hemoglobin 11.1 G/DL (12.0-16.0) L Hematocrit 33.3 % (37.0-47.0) L Mean Corpuscular Volume 85 FL (80-99) Mean Corpuscular Hemoglobin 28.5 PG (27.0-31.0) Mean Corpuscular Hemoglobin Concent 33.4 G/DL (32.0-36.0) Red Cell Distribution Width 16.7 % (11.6-14.8) H Platelet Count 165 K/UL (150-450) Mean Platelet Volume 12.1 FL (6.5-10.1) H Neutrophils (%) (Auto) 66.4 % (45.0-75.0) Lymphocytes (%) (Auto) 24.5 % (20.0-45.0) Monocytes (%) (Auto) 3.1 % (1.0-10.0) Eosinophils (%) (Auto) 0.5 % (0.0-3.0) Basophils (%) (Auto) 5.6 % (0.0-2.0) H Sodium Level 138 MMOL/L (136-145) Potassium Level 4.4 MMOL/L (3.5-5.1) Chloride Level 107 MMOL/L (98-107) Carbon Dioxide Level 26 MMOL/L (21-32) Anion Gap 5 mmol/L (5-15) Blood Urea Nitrogen 24 mg/dL (7-18) H Creatinine 0.7 MG/DL (0.55-1.30) Estimat Glomerular Filtration Rate > 60 mL/min (>60) Glucose Level 86 MG/DL (74-106) Calcium Level 8.0 MG/DL (8.5-10.1) L Total Bilirubin 0.8 MG/DL (0.2-1.0) Aspartate Amino Transf (AST/SGOT) 17 U/L (15-37) Alanine Aminotransferase (ALT/SGPT) 25 U/L (12-78) Alkaline Phosphatase 49 U/L (46-116) Total Protein 5.4 G/DL (6.4-8.2) L Albumin 2.2 G/DL (3.4-5.0) L Globulin 3.2 g/dL Albumin/Globulin Ratio 0.7 (1.0-2.7) L Plan Problems: (1) Generalized weakness (2) Symptomatic anemia (3) Protein-calorie malnutrition, severe (4) Severe anemia (5) ACS (acute coronary syndrome) (6) Pyelonephritis (7) CAD (coronary artery disease) (8) COPD (chronic obstructive pulmonary disease) (9) positional vertigo (10) KELVIN (obstructive sleep apnea) (11) Peripheral neuropathy (12) Myelofibrosis (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 hx of bleeding held anticoagulation since prior right hemothorax s/p evacuation and vats transfusing prbc coags noted ddx includes possible GI hemorrhage. possible blood disorder protonix prior imaging reviewed as below abnormal lft's likely heme breakdown products thank you will follow with recs trend h/h transfuse prn h/hstable tolerating diet d/c planning Gallbladder demonstrates a gallstone. This also reported on same day CT. Sonographic Camacho's sign is negative. Common bile duct measures 5 mm in diameter. No intrahepatic biliary ductal dilatation. Liver demonstrates normal echogenicity, no focal abnormality. Portal vein and hepatic veins are patent. Pancreas is unremarkable. The spleen demonstrates a complex upper pole cyst that measures 2.7 cm in diameter. The spleen is borderline enlarged. There are bilateral pleural effusions Left kidney measures 10.2 cm in length. Right kidney measures 9.2 cm length. Both kidneys demonstrate normal echogenicity. There is no hydronephrosis. No focal abnormality . Non-aneurysmal abdominal aorta . Impression: Cholelithiasis. Negative for dilated bile ducts 2.7 cm complex upper pole splenic cyst, also reported on prior imaging studies. Bilateral pleural effusions Chest: The lungs demonstrate a mosaic perfusion pattern, which is more striking than that seen previously. Some atelectasis and consolidation is seen involving both lower lobes. This appears similar on the right, slightly more extensive on the left. There is a moderate-sized right pleural effusion which appears similar to the previous study. There is a small left pleural effusion which is new since the previous study. Previous exam demonstrated a 1.5 cm opacity in the inferior right azygoesophageal recess. This is not evident currently although could be obscured by surrounding atelectatic lung. The heart is enlarged. There is a left chest pacemaker again demonstrated. No pericardial effusion. No mediastinal or hilar mass or adenopathy. Right lower pole thyroid calcification is again demonstrated. No axillary or chest wall mass or adenopathy. There are fairly profound degenerative changes of the bilateral shoulders. There is evidence of interim healing of previously demonstrated right rib fractures, nearly but not completely healed as some fracture lines persist. There are degenerative changes of the thoracic spine noted. Abdomen pelvis: What is probably a normal appendix is demonstrated. There is extensive colonic diverticulosis. No evidence of diverticulitis. The rectum is mildly distended, mostly with gas with some stool as well. No small bowel distention or small bowel wall thickening. Numerous surgical clips are seen in the retroperitoneum and left side of the pelvis. The stomach and duodenum are unremarkable. The gallbladder contains a gallstone. No biliary ductal dilatation. The liver is mildly enlarged. The pancreas is unremarkable. The spleen is enlarged, measuring 14 cm long axis dimension. It demonstrates a complex upper pole cyst, also previously demonstrated the adrenals and kidneys are unremarkable. There is a retroaortic left renal vein incidentally noted. The uterus is absent.. The bladder is unremarkable. The bones demonstrate degenerative spondylosis changes. IMPRESSION: Cardiomegaly Unchanged moderate right pleural effusion, since June 2019. New small left pleural effusion Bilateral mosaic perfusion pattern, probably on the basis of pulmonary edema Bilateral basilar compressive atelectasis and possible consolidation Interim healing of previously demonstrated right rib fractures Previously demonstrated right azygoesophageal recess lesion is no longer evident, may have resolved or may be obscured by surrounding lung parenchyma. Cholelithiasis Hepatomegaly Splenomegaly Splenic cystic lesion, unchanged from prior exam Postsurgical changes as described, including pacemaker, evidence of prior hysterectomy, evidence of prior pelvic lymph node dissection, prior hysterectomy Errol Estrada Feb 01, 2020 17:04
--- NOTE | 2020-02-01 19:21 | Internal Med Progress Note ---
Subjective Date of Service: Feb 01, 2020 Physician Name GraceRoshan Attending Physician Antonio Adrian MD Current Medications Medications (Trade) Dose Ordered Sig/Escobar Route PRN Reason Start Time Stop Time Status Last Admin Dose Admin Acetaminophen (Tylenol) 650 mg Q4H PRN ORAL fever 01/28/20 16:30 02/27/20 16:29 Acetaminophen (Tylenol) 650 mg Q6H PRN ORAL Mild Pain (Pain Scale 1-3) 01/30/20 03:00 02/29/20 02:59 Acetaminophen/ Hydrocodone Bitart ([place] 5/325) 1 tab Q6H PRN ORAL Moderate Pain (Pain Scale 4-6) 01/30/20 03:00 02/06/20 02:59 Amiodarone HCl (Cordarone) 200 mg DAILY ORAL 01/30/20 09:00 04/29/20 08:59 02/01/20 08:19 Dextrose (Dextrose 50%) 25 ml Q30M PRN IV Hypoglycemia 01/28/20 16:30 02/27/20 16:18 Dextrose (Dextrose 50%) 50 ml Q30M PRN IV hypoglycemia 01/28/20 16:30 04/27/20 16:29 Digoxin (Lanoxin) 0.125 mg DAILY ORAL 01/30/20 09:00 04/29/20 08:59 02/01/20 08:15 Heparin Sodium (Porcine) (Heparin 5000 units/ml) 5,000 units EVERY 12 HOURS SUBQ 01/29/20 21:00 03/14/20 20:59 02/01/20 08:20 Levothyroxine Sodium (Synthroid) 25 mcg DAILY@0630 ORAL 01/31/20 06:30 03/01/20 06:29 02/01/20 06:28 Metoprolol Tartrate (Lopressor) 25 mg Q12HR ORAL 01/29/20 21:00 04/28/20 20:59 02/01/20 08:19 Ondansetron HCl (Zofran) 4 mg Q6H PRN IVP Nausea & Vomiting 01/28/20 16:30 02/27/20 16:29 Pantoprazole (Protonix) 40 mg DAILY ORAL 01/30/20 09:00 02/29/20 08:59 02/01/20 08:15 Polyethylene Glycol (Miralax) 17 gm HSPRN PRN ORAL Constipation 01/28/20 16:30 02/27/20 16:29 Zolpidem Tartrate (Ambien) 5 mg HSPRN PRN ORAL Insomnia 01/28/20 16:30 02/04/20 16:29 01/29/20 21:42 Allergies: Coded Allergies: No Known Allergies (Unverified , 04/24/18) ROS Limited/Unobtainable: No Constitutional: Reports: weakness HEENT: Reports: no symptoms Cardiovascular: Reports: no symptoms Respiratory: Reports: no symptoms Gastrointestinal/Abdominal: Reports: no symptoms Genitourinary: Reports: no symptoms Neurologic/Psychiatric: Reports: no symptoms Subjective 79 YO F with history of myelodysplastic syndrome admitted with gen weakness and fatigue. Now severe anemia. Cover for Int kizzy-Dr Adrian Objective Last Vital Signs Date Time Temp Pulse Resp B/P (MAP) Pulse Ox O2 Delivery O2 Flow Rate FiO2 02/01/20 16:00 97.7 62 20 124/68 (86) 98 02/01/20 09:00 Nasal Cannula 2.0 Laboratory Tests Test 02/01/20 05:20 White Blood Count 6.0 K/UL (4.8-10.8) Red Blood Count 3.90 M/UL (4.20-5.40) L Hemoglobin 11.1 G/DL (12.0-16.0) L Hematocrit 33.3 % (37.0-47.0) L Mean Corpuscular Volume 85 FL (80-99) Mean Corpuscular Hemoglobin 28.5 PG (27.0-31.0) Mean Corpuscular Hemoglobin Concent 33.4 G/DL (32.0-36.0) Red Cell Distribution Width 16.7 % (11.6-14.8) H Platelet Count 165 K/UL (150-450) Mean Platelet Volume 12.1 FL (6.5-10.1) H Neutrophils (%) (Auto) 66.4 % (45.0-75.0) Lymphocytes (%) (Auto) 24.5 % (20.0-45.0) Monocytes (%) (Auto) 3.1 % (1.0-10.0) Eosinophils (%) (Auto) 0.5 % (0.0-3.0) Basophils (%) (Auto) 5.6 % (0.0-2.0) H Sodium Level 138 MMOL/L (136-145) Potassium Level 4.4 MMOL/L (3.5-5.1) Chloride Level 107 MMOL/L (98-107) Carbon Dioxide Level 26 MMOL/L (21-32) Anion Gap 5 mmol/L (5-15) Blood Urea Nitrogen 24 mg/dL (7-18) H Creatinine 0.7 MG/DL (0.55-1.30) Estimat Glomerular Filtration Rate > 60 mL/min (>60) Glucose Level 86 MG/DL (74-106) Calcium Level 8.0 MG/DL (8.5-10.1) L Total Bilirubin 0.8 MG/DL (0.2-1.0) Aspartate Amino Transf (AST/SGOT) 17 U/L (15-37) Alanine Aminotransferase (ALT/SGPT) 25 U/L (12-78) Alkaline Phosphatase 49 U/L (46-116) Total Protein 5.4 G/DL (6.4-8.2) L Albumin 2.2 G/DL (3.4-5.0) L Globulin 3.2 g/dL Albumin/Globulin Ratio 0.7 (1.0-2.7) L Intake and Output 01/31/20 02/01/20 19:00 07:00 Intake Total 320 ml 200 ml Balance 320 ml 200 ml Intake Oral 320 ml 200 ml # Voids 1 4 Objective PHYSICAL EXAMINATION: GENERAL: Patient is cachectic, malnutrition, very chronic ill-appearing, awake, responsive. HEAD AND NECK: Pupils equal and reactive to light. Extraocular movements intact. Neck was supple. No JVD. LUNGS: Good air entry. No wheezing or rhonchi. Decreased air entry in bases. HEART: S1, S2. Irregular. No murmur or gallop. Patient has a pacemaker in left-sided chest wall. ABDOMEN: Soft, nondistended, nontender. Positive bowel sounds. Neg for hepatosplenomegaly, rebound or guarding EXTREMITIES: No cyanosis, clubbing, or edema. Muscle atrophy bilateral lower extremities was noted. NEUROLOGIC: Cranial nerves II through XII grossly intact. Patient moving all the extremities. Gait was not assessed due to patient's status. RECTAL: Refused and deferred. GENITOURINARY: Refused and deferred. PSYCHIATRIC: Mood and affect is intact. Assessment/Plan Assessment/Plan ASSESSMENT: 1. Severe anemia, most likely secondary to myelodysplastic syndrome and myelofibrosis. improved 2. Hypotension, most likely secondary to dehydration as well as profound anemia. 3. Chronic atrial fibrillation. 4. History of polycythemia vera. 5. History of JAK2 mutation. 6. Myelofibrosis and myelodysplastic syndrome. 7. Hypertension. 8. Coronary artery disease. 9. Dyslipidemia. 10. Chronic congestive heart failure. 11. History of right hemothorax, status post video-assisted thoracotomy exploration on 07/02/2019. 12. Sick sinus syndrome with status post pacemaker. 13. Failure to thrive. 14. Severe protein-calorie malnutrition. 15. COVID 19 neg 16. Bilateral pleural effusions vs infiltrates PLAN: 1. Admit patient to monitored unit. 2. Dr. Mejia = Pulmonary Critical Care 3. Dr. Freitas = Cardiology/Electrophysiology. 4. S/P Transfusion 6 units of packed RBC. 5. CT angio of the chest = neg for PE. 6. DVT prophylaxis, heparin subcutaneous. 7. Code status is Full Code. Roshan Edwards MD Feb 01, 2020 19:21
--- NOTE | 2020-02-01 19:30 | NUR ---
NURSE NOTES: Patient received from Mel[facility] ROTH. Patient in stable condition. Awake alert and oriented x3-4. No s/s of plain and or respiratory distress. Saturating well on 2L of oxygen via nasal canula. IV site patent and intact on Right AC 20G saline locked. bed in lowest position and locked. Call light and bedside table within reach. Will continue plan of care.
--- NOTE | 2020-02-01 19:59 | NUR ---
NURSE HAND-OFF REPORT: Important Events on Shift:[CXR] Patient Status: [Stable, AAOx3, full code] Diet: [Regular] Pending Orders: [N/A] Pending Results/Labs:[N/A] Pending MD notification:[N/A] Latest Vital Signs: Temperature 97.7 , Pulse 62 , B/P 124 /68 , Respiratory Rate 20 , O2 SAT 98 , Nasal Cannula, O2 Flow Rate 2.0 . Vital Sign Comment: [] EKG Rhythm: SR W/ 1st degree AVB Rhythm change?: N MD Notified?: Alexi Freitas MD Response: Latest Yepez Fall Score: 30 Fall Risk: Medium Risk Safety Measures: Call light Within Reach, Bed Alarm Zone 1, Side Rails Side Rails x3, Bed position Low and Locked. Fall Precautions: Yellow Socks Yellow Gown Door Sign Patient Fall Education Report given to [IRA Patrick].
[2020-02-01 20:00] VITALS: BP 125/62
[2020-02-02] VITALS: BP 129/69
[2020-02-02 04:00] VITALS: BP 110/59
[2020-02-02] MEDS: Levothyroxine 25mcg tab ORAL SCH (05:56)
--- NOTE | 2020-02-02 07:35 | NUR ---
NURSE NOTES: Received patient in bed. Awake, A/O x4, st helenian speaking. 2 L NC. Patient denies pain. Bed low and locked, side rails up x2, call light within reach with return demonstration.
--- NOTE | 2020-02-02 07:44 | NUR ---
NURSE HAND-OFF REPORT: Important Events on Shift:[None] Patient Status: [Stable, FC] Diet: [Regular Diet] Pending Orders: [] Pending Results/Labs:[Called for Lab to draw patient awaiting senior electrical estimator] Pending MD notification:[] Latest Vital Signs: Temperature 97.7 , Pulse 60 , B/P 110 /59 , Respiratory Rate 20 , O2 SAT 99 , Nasal Cannula, O2 Flow Rate 2.0 . Vital Sign Comment: [] EKG Rhythm: SR c 1st HB Rhythm change?: N MD Notified?: Alexi Freitas MD Response: Latest Yepez Fall Score: 45 Fall Risk: High Risk Safety Measures: Call light Within Reach, Bed Alarm Zone 1, Side Rails Side Rails x3, Bed position Low and Locked. Fall Precautions: Yellow Socks Yellow Gown Door Sign Patient Fall Education Report given to [Larissa RN].
[2020-02-02 08:00] VITALS: BP 121/67
--- NOTE | 2020-02-02 08:35 | NUR ---
RD ASSESSMENT & RECOMMENDATIONS SEE CARE ACTIVITY FOR COMPLETE ASSESSMENT DAILY ESTIMATED NEEDS: Needs based on underweight/ 50kg 30-35 kcals/kg 1882-1563 total kcals 1-1.5 g protein/kg 50-75 g total protein 25-30 mL/kg 6310-0791 total fluid mLs NUTRITION DIAGNOSIS: Increased kcal/prot needs R/T underweight status as evidenced by pt @ 88% IBW w/ BMI of 18.4. (CURRENT DIET:REGULAR) PO DIET RECOMMENDATIONS-->>> Regular/ texture as tolerated ADDITIONAL RECOMMENDATIONS: 1) Standing wt or calibrated bedscale wt for accurate CBW 2) Ensure Enlive BID w/ variable intake (350kcal/20g prot in 1 bottle) Add snacks to trays TID . . . .
[2020-02-02] MEDS: Digoxin 0.125mg tab ORAL SCH (08:55)
[2020-02-02] MEDS: Amiodarone 200mg tab ORAL SCH (08:55)
[2020-02-02] MEDS: Heparin 5000 units/ml inj SUBQ SCH (09:02)
[2020-02-02 10:33] LABS: BASOPHILS % (AUTO) 7.6 % (0.0-2.0); EOSINOPHILS % (AUTO) 0.1 % (0.0-3.0); HEMATOCRIT 33.5 % (37.0-47.0); HEMOGLOBIN 11.4 G/DL (12.0-16.0); LYMPHOCYTES % (AUTO) 17.2 % (20.0-45.0); MEAN CORPUSCULAR VOLUME 82 FL (80-99); MONOCYTES % (AUTO) 3.6 % (1.0-10.0); NEUTROPHILS % (AUTO) 71.5 % (45.0-75.0); PLATELET COUNT 164 K/UL (150-450); RED BLOOD COUNT 4.11 M/UL (4.20-5.40); RED CELL DISTRIBUTION WIDTH 17.5 % (11.6-14.8); WHITE BLOOD COUNT 5.3 K/UL (4.8-10.8)
[2020-02-02 10:38] LABS: ANION GAP 3 mmol/L (5-15); BLOOD UREA NITROGEN 24 mg/dL (7-18); CALCIUM 7.9 MG/DL (8.5-10.1); CARBON DIOXIDE 29 MMOL/L (21-32); CHLORIDE 106 MMOL/L (98-107); CREATININE 0.7 MG/DL (0.55-1.30); POTASSIUM 3.8 MMOL/L (3.5-5.1); SODIUM 138 MMOL/L (136-145)
[2020-02-02] MEDS ORDERED: LOPRESSOR25 M1 ORAL (10:56)
[2020-02-02] MEDS ORDERED: SYNTHROID25 MCG ORAL (10:56)
--- NOTE | 2020-02-02 11:02 | Pulmonology Progress Note ---
Subjective ROS Limited/Unobtainable: No Constitutional: Reports: no symptoms HEENT: Repors: no symptoms Respiratory: Reports: no symptoms Allergies: Coded Allergies: No Known Allergies (Unverified , 04/24/18) Objective Last 24 Hour Vital Signs Date Time Temp Pulse Resp B/P (MAP) Pulse Ox O2 Delivery O2 Flow Rate FiO2 02/02/20 09:00 Nasal Cannula 2.0 02/02/20 08:55 64 121/67 02/02/20 08:55 64 02/02/20 08:00 62 02/02/20 08:00 97.7 64 19 121/67 (85) 98 02/02/20 04:00 60 02/02/20 04:00 97.7 60 20 110/59 (76) 99 02/02/20 00:00 97.9 61 20 129/69 (89) 99 02/02/20 00:00 61 02/01/20 21:08 61 125/62 02/01/20 21:00 Nasal Cannula 2.0 02/01/20 20:00 97.9 64 24 125/62 (83) 98 02/01/20 20:00 64 02/01/20 16:00 97.7 62 20 124/68 (86) 98 02/01/20 16:00 60 02/01/20 12:00 97.3 82 20 140/80 (100) 96 02/01/20 12:00 60 Intake and Output 02/01/20 02/02/20 19:00 07:00 Intake Total 300 ml Balance 300 ml Intake Oral 300 ml # Voids 2 3 # Bowel Movements 1 General Appearance: no acute distress, cachetic - elderly Maori speaking female HEENT: normocephalic, atraumatic, anicteric, mucous membranes moist Respiratory: lungs clear - with decreased BS, no respiratory distress, no accessory muscle use Cardiovascular: regular rhythm - paced, , tachycardia, pacemaker/AICD - left upper chest Abdomen: soft, non tender, non distended Extremities: no edema Skin: other - R chest with healed scar Neurologic: alert, responsive, depressed affect Lymphatic: no neck adenopathy Musculoskeletal: atrophy - BLE Laboratory Tests 02/02/20 09:50: White Blood Count 5.3, Red Blood Count 4.11L, Hemoglobin 11.4L, Hematocrit 33.5L , Mean Corpuscular Volume 82, Mean Corpuscular Hemoglobin 27.6, Mean Corpuscular Hemoglobin Concent 33.9, Red Cell Distribution Width 17.5H, Platelet Count 164, Mean Platelet Volume 13.5H, Neutrophils (%) (Auto) 71.5, Lymphocytes (%) (Auto) 17.2L, Monocytes (%) (Auto) 3.6, Eosinophils (%) (Auto) 0.1, Basophils (%) (Auto) 7.6H, Sodium Level 138, Potassium Level 3.8, Chloride Level 106, Carbon Dioxide Level 29, Anion Gap 3L, Blood Urea Nitrogen 24H, Creatinine 0.7, Estimat Glomerular Filtration Rate > 60, Glucose Level 140H, Calcium Level 7.9L Current Medications Medications (Trade) Dose Ordered Sig/Escobar Route PRN Reason Start Time Stop Time Status Last Admin Dose Admin Acetaminophen (Tylenol) 650 mg Q4H PRN ORAL fever 01/28/20 16:30 02/27/20 16:29 Acetaminophen (Tylenol) 650 mg Q6H PRN ORAL Mild Pain (Pain Scale 1-3) 01/30/20 03:00 02/29/20 02:59 Acetaminophen/ Hydrocodone Bitart ([place] 5/325) 1 tab Q6H PRN ORAL Moderate Pain (Pain Scale 4-6) 01/30/20 03:00 02/06/20 02:59 Amiodarone HCl (Cordarone) 200 mg DAILY ORAL 01/30/20 09:00 04/29/20 08:59 02/02/20 08:55 Dextrose (Dextrose 50%) 25 ml Q30M PRN IV Hypoglycemia 01/28/20 16:30 02/27/20 16:18 Dextrose (Dextrose 50%) 50 ml Q30M PRN IV hypoglycemia 01/28/20 16:30 04/27/20 16:29 Digoxin (Lanoxin) 0.125 mg DAILY ORAL 01/30/20 09:00 04/29/20 08:59 02/02/20 08:55 Heparin Sodium (Porcine) (Heparin 5000 units/ml) 5,000 units EVERY 12 HOURS SUBQ 01/29/20 21:00 03/14/20 20:59 02/02/20 09:02 Levothyroxine Sodium (Synthroid) 25 mcg DAILY@0630 ORAL 01/31/20 06:30 1/19/21 06:29 02/02/20 05:56 Metoprolol Tartrate (Lopressor) 25 mg Q12HR ORAL 01/29/20 21:00 04/28/20 20:59 02/02/20 08:55 Ondansetron HCl (Zofran) 4 mg Q6H PRN IVP Nausea & Vomiting 01/28/20 16:30 02/27/20 16:29 Pantoprazole (Protonix) 40 mg DAILY ORAL 01/30/20 09:00 02/29/20 08:59 02/02/20 08:55 Polyethylene Glycol (Miralax) 17 gm HSPRN PRN ORAL Constipation 01/28/20 16:30 02/27/20 16:29 Zolpidem Tartrate (Ambien) 5 mg HSPRN PRN ORAL Insomnia 01/28/20 16:30 02/04/20 16:29 01/29/20 21:42 Assessment/Plan Problems: (1) Severe anemia (2) Myelofibrosis (3) COPD (chronic obstructive pulmonary disease) (4) JAK2 V617F mutation (5) Polycythemia vera (6) Protein-calorie malnutrition, severe Assessment/Plan hemoglobin stable COVID negative twice no nee complains respiratory treatment titrate fio2 to sat of 92% pt/ot dc planning soon Kelly Mejia MD Feb 02, 2020 11:02
--- NOTE | 2020-02-02 11:03 | Cardiac Electrophysiology PN ---
Assessment/Plan Assessment/Plan 1. Hypertension. On Lopressor 25 po bid 2. Status post [employer] pacemaker in 2011 and generator change by me in 2019. 3. Paroxysmal atrial fibrillation with rapid ventricular response. On digoxin, metoprolol and amiodarone. Off anticoagulation for recurrent bleeding and profound anemia. Digoxin level less than 0.2 4. Profound anemia with hemoglobin of 3 to 4. S/P 6 units of blood transfusion. Fu by Dr. Kaplan. 5. History of hemothorax, status post VATS. 6. History for pulmonary hypertension. 7. Polycythemia vera. 8. Myelofibrosis. 9. Covid negative by PCR DW RN Subjective Subjective Received 6 units of PRBC. Rapid Covid is negative. Covid PCR is also negative now. Alert in NAD Objective Last 24 Hour Vital Signs Date Time Temp Pulse Resp B/P (MAP) Pulse Ox O2 Delivery O2 Flow Rate FiO2 02/02/20 09:00 Nasal Cannula 2.0 02/02/20 08:55 64 121/67 02/02/20 08:55 64 02/02/20 08:00 62 02/02/20 08:00 97.7 64 19 121/67 (85) 98 02/02/20 04:00 60 02/02/20 04:00 97.7 60 20 110/59 (76) 99 02/02/20 00:00 97.9 61 20 129/69 (89) 99 02/02/20 00:00 61 02/01/20 21:08 61 125/62 02/01/20 21:00 Nasal Cannula 2.0 02/01/20 20:00 97.9 64 24 125/62 (83) 98 02/01/20 20:00 64 02/01/20 16:00 97.7 62 20 124/68 (86) 98 02/01/20 16:00 60 02/01/20 12:00 97.3 82 20 140/80 (100) 96 02/01/20 12:00 60 Intake and Output 02/01/20 02/02/20 19:00 07:00 Intake Total 300 ml Balance 300 ml Intake Oral 300 ml # Voids 2 3 # Bowel Movements 1 Laboratory Tests Test 02/02/20 09:50 White Blood Count 5.3 K/UL (4.8-10.8) Red Blood Count 4.11 M/UL (4.20-5.40) L Hemoglobin 11.4 G/DL (12.0-16.0) L Hematocrit 33.5 % (37.0-47.0) L Mean Corpuscular Volume 82 FL (80-99) Mean Corpuscular Hemoglobin 27.6 PG (27.0-31.0) Mean Corpuscular Hemoglobin Concent 33.9 G/DL (32.0-36.0) Red Cell Distribution Width 17.5 % (11.6-14.8) H Platelet Count 164 K/UL (150-450) Mean Platelet Volume 13.5 FL (6.5-10.1) H Neutrophils (%) (Auto) 71.5 % (45.0-75.0) Lymphocytes (%) (Auto) 17.2 % (20.0-45.0) L Monocytes (%) (Auto) 3.6 % (1.0-10.0) Eosinophils (%) (Auto) 0.1 % (0.0-3.0) Basophils (%) (Auto) 7.6 % (0.0-2.0) H Sodium Level 138 MMOL/L (136-145) Potassium Level 3.8 MMOL/L (3.5-5.1) Chloride Level 106 MMOL/L (98-107) Carbon Dioxide Level 29 MMOL/L (21-32) Anion Gap 3 mmol/L (5-15) L Blood Urea Nitrogen 24 mg/dL (7-18) H Creatinine 0.7 MG/DL (0.55-1.30) Estimat Glomerular Filtration Rate > 60 mL/min (>60) Glucose Level 140 MG/DL (74-106) H Calcium Level 7.9 MG/DL (8.5-10.1) L Objective HEAD AND NECK: No JVD. LUNGS: Coarse rhonchi. CARDIOVASCULAR: Regular S1 and S2 with no gallop or murmur. ABDOMEN: Soft. EXTREMITIES: 1+ pitting edema. River Freitas MD Feb 02, 2020 11:03
[2020-02-02 12:00] VITALS: BP 131/66
--- NOTE | 2020-02-02 12:37 | Surgery Progress Note ---
Surgery Progress Note Subjective Symptoms: improved, tolerating diet, passing flatus Objective Last 24 Hour Vital Signs Date Time Temp Pulse Resp B/P (MAP) Pulse Ox O2 Delivery O2 Flow Rate FiO2 02/02/20 09:00 Nasal Cannula 2.0 02/02/20 08:55 64 121/67 02/02/20 08:55 64 02/02/20 08:00 62 02/02/20 08:00 97.7 64 19 121/67 (85) 98 02/02/20 04:00 60 02/02/20 04:00 97.7 60 20 110/59 (76) 99 02/02/20 00:00 97.9 61 20 129/69 (89) 99 02/02/20 00:00 61 02/01/20 21:08 61 125/62 02/01/20 21:00 Nasal Cannula 2.0 02/01/20 20:00 97.9 64 24 125/62 (83) 98 02/01/20 20:00 64 02/01/20 16:00 97.7 62 20 124/68 (86) 98 02/01/20 16:00 60 I&O Intake and Output 02/01/20 02/02/20 19:00 07:00 Intake Total 300 ml Balance 300 ml Intake Oral 300 ml # Voids 2 3 # Bowel Movements 1 Cardiovascular: RSR Respiratory: clear, decreased breath sounds Abdomen: soft, non-tender, present bowel sounds Extremities: no edema, no tenderness, no cyanosis Laboratory Tests Test 02/02/20 09:50 White Blood Count 5.3 K/UL (4.8-10.8) Red Blood Count 4.11 M/UL (4.20-5.40) L Hemoglobin 11.4 G/DL (12.0-16.0) L Hematocrit 33.5 % (37.0-47.0) L Mean Corpuscular Volume 82 FL (80-99) Mean Corpuscular Hemoglobin 27.6 PG (27.0-31.0) Mean Corpuscular Hemoglobin Concent 33.9 G/DL (32.0-36.0) Red Cell Distribution Width 17.5 % (11.6-14.8) H Platelet Count 164 K/UL (150-450) Mean Platelet Volume 13.5 FL (6.5-10.1) H Neutrophils (%) (Auto) 71.5 % (45.0-75.0) Lymphocytes (%) (Auto) 17.2 % (20.0-45.0) L Monocytes (%) (Auto) 3.6 % (1.0-10.0) Eosinophils (%) (Auto) 0.1 % (0.0-3.0) Basophils (%) (Auto) 7.6 % (0.0-2.0) H Sodium Level 138 MMOL/L (136-145) Potassium Level 3.8 MMOL/L (3.5-5.1) Chloride Level 106 MMOL/L (98-107) Carbon Dioxide Level 29 MMOL/L (21-32) Anion Gap 3 mmol/L (5-15) L Blood Urea Nitrogen 24 mg/dL (7-18) H Creatinine 0.7 MG/DL (0.55-1.30) Estimat Glomerular Filtration Rate > 60 mL/min (>60) Glucose Level 140 MG/DL (74-106) H Calcium Level 7.9 MG/DL (8.5-10.1) L Plan Problems: (1) Generalized weakness (2) Symptomatic anemia (3) Protein-calorie malnutrition, severe (4) Severe anemia (5) ACS (acute coronary syndrome) (6) Pyelonephritis (7) CAD (coronary artery disease) (8) COPD (chronic obstructive pulmonary disease) (9) positional vertigo (10) KELVIN (obstructive sleep apnea) (11) Peripheral neuropathy (12) Myelofibrosis (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 hx of bleeding held anticoagulation since prior right hemothorax s/p evacuation and vats transfusing prbc coags noted ddx includes possible GI hemorrhage. possible blood disorder protonix prior imaging reviewed as below abnormal lft's likely heme breakdown products thank you will follow with recs trend h/h transfuse prn h/hstable tolerating diet d/c planning Gallbladder demonstrates a gallstone. This also reported on same day CT. Sonographic Camacho's sign is negative. Common bile duct measures 5 mm in diameter. No intrahepatic biliary ductal dilatation. Liver demonstrates normal echogenicity, no focal abnormality. Portal vein and hepatic veins are patent. Pancreas is unremarkable. The spleen demonstrates a complex upper pole cyst that measures 2.7 cm in diameter. The spleen is borderline enlarged. There are bilateral pleural effusions Left kidney measures 10.2 cm in length. Right kidney measures 9.2 cm length. Both kidneys demonstrate normal echogenicity. There is no hydronephrosis. No focal abnormality . Non-aneurysmal abdominal aorta . Impression: Cholelithiasis. Negative for dilated bile ducts 2.7 cm complex upper pole splenic cyst, also reported on prior imaging studies. Bilateral pleural effusions Chest: The lungs demonstrate a mosaic perfusion pattern, which is more striking than that seen previously. Some atelectasis and consolidation is seen involving both lower lobes. This appears similar on the right, slightly more extensive on the left. There is a moderate-sized right pleural effusion which appears similar to the previous study. There is a small left pleural effusion which is new since the previous study. Previous exam demonstrated a 1.5 cm opacity in the inferior right azygoesophageal recess. This is not evident currently although could be obscured by surrounding atelectatic lung. The heart is enlarged. There is a left chest pacemaker again demonstrated. No pericardial effusion. No mediastinal or hilar mass or adenopathy. Right lower pole thyroid calcification is again demonstrated. No axillary or chest wall mass or adenopathy. There are fairly profound degenerative changes of the bilateral shoulders. There is evidence of interim healing of previously demonstrated right rib fractures, nearly but not completely healed as some fracture lines persist. There are degenerative changes of the thoracic spine noted. Abdomen pelvis: What is probably a normal appendix is demonstrated. There is extensive colonic diverticulosis. No evidence of diverticulitis. The rectum is mildly distended, mostly with gas with some stool as well. No small bowel distention or small bowel wall thickening. Numerous surgical clips are seen in the retroperitoneum and left side of the pelvis. The stomach and duodenum are unremarkable. The gallbladder contains a gallstone. No biliary ductal dilatation. The liver is mildly enlarged. The pancreas is unremarkable. The spleen is enlarged, measuring 14 cm long axis dimension. It demonstrates a complex upper pole cyst, also previously demonstrated the adrenals and kidneys are unremarkable. There is a retroaortic left renal vein incidentally noted. The uterus is absent.. The bladder is unremarkable. The bones demonstrate degenerative spondylosis changes. IMPRESSION: Cardiomegaly Unchanged moderate right pleural effusion, since June 2019. New small left pleural effusion Bilateral mosaic perfusion pattern, probably on the basis of pulmonary edema Bilateral basilar compressive atelectasis and possible consolidation Interim healing of previously demonstrated right rib fractures Previously demonstrated right azygoesophageal recess lesion is no longer evident, may have resolved or may be obscured by surrounding lung parenchyma. Cholelithiasis Hepatomegaly Splenomegaly Splenic cystic lesion, unchanged from prior exam Postsurgical changes as described, including pacemaker, evidence of prior hysterectomy, evidence of prior pelvic lymph node dissection, prior hysterectomy Errol Estrada Feb 02, 2020 12:37
--- NOTE | 2020-02-02 14:00 | NUR ---
NURSE NOTES: Patient discharged to home via son's (Kishan Moreno) car. IV removed, heart monitor removed, belongings list verified. VSS, on room air, respirations unlabored.
--- NOTE | 2020-02-03 13:14 | Discharge Summary ---
Discharge Summary Discharge Summary _ DATE OF ADMISSION: 01/28/2020 DATE OF DISCHARGE: 02/02/2020 DISCHARGED BY: Dr. Adrian REASON FOR ADMISSION: 79 years old female with past medical history significant for atrial fibrillation, polycythemia vera, myelofibrosis, history of JAK2 mutation, myelodysplasia, history of CVA, obstructive sleep apnea, coronary artery disease, dyslipidemia, congestive heart failure, sick sinus syndrome, status post pacemaker implantation, right hemithorax June 2019, status post VATS, presented to emergency department complaining of generalized fatigue and weakness. No reported fever or chills. No chest pain. Upon evaluation patient was found to have severe anemia with hemoglobin 3.6 and hematocrit 10.1. No leukocytosis , platelet count 269. Stable electrolytes. BUN 40, creatinine 1.2. Glucose 123. AST 67, ALT 50, total bilirubin 1.4, direct bilirubin 0.5 Rapid COVID-19 was negative. Chest x-ray demonstrated interstitial prominence and diffuse hazy opacity , may reflect edema versus infiltrate. Small right pleural effusion. In emergency department patient typed and crossed, started on blood transfusion and admitted for further management. CONSULTANTS: manager sharepoint Dr. Lozoya pulmonary Dr. Mejia ID specialist Dr. Cano surgery Dr. Estrada [facility] COURSE: Patient admitted to telemetry floor . Patient undergone transfusion of total of 6 units of packed red blood cells while in the hospital. Counts were closely monitored. Prior to discharge hemoglobin 11.4 , hematocrit 33.5, platelet count 164. Repeated COVID-19 by PCR was not detected as well. Patient undergone CT angiogram of the chest which showed no evidence of pulmonary embolism. Mild to moderate bilateral layering pleural effusion. Atelectatic volume loss and consolidation bilateral lower lobes. Cardiomegaly. CT scan of the abdomen and pelvis revealed descending and sigmoid colonic diverticulosis. Hepatomegaly. DVT prophylaxis provided. Supplemental oxygen was on board as needed to keep pulse oximetry above 92%. Pulse oximetry remained stable on 2 L of oxygen via nasal cannula. AST and bilirubin trended down to normal. Lipid panel was stable. Heart rate was controlled with digoxin , metoprolol and amiodarone. No anticoagulation given recurrent bleeding and profound anemia. Blood pressure was closely monitored Initially was hypotensive given dehydration and profound anemia. Blood pressure responded to the IV fluids. Later blood pressure was managed as per manager sharepoint recommendation and remained stable with current regimen. Patient noted to have elevated TSH and low T3 Patient started on low-dose of Synthroid . Repeat thyroid function test in 1 month. Gentle IV hydration provided Volumes, renal parameters and electrolytes were closely monitored. Protein supplements provided as per registered account administrator repigmentation. Fall precaution maintained. Supportive care provided. Patient clinically stabilized and was ready for discharge home. FINAL DIAGNOSES: Acute profound symptomatic anemia , most likely due to myelodysplastic syndrome and myelofibrosis Hypotension secondary to dehydration and anemia Myelofibrosis and myelodysplasia Polycythemia vera Paroxysmal atrial fibrillation with rapid ventricular response Right hemithorax June 2019, status post VATS Pulmonary hypertension Obstructive sleep apnea Severe protein calorie malnutrition SSS, status post pacemaker placement 2010, generator change 2018 Hypertension Elevated TSH -> hypothyroidism History of JAK2 mutation Chronic CHF DISCHARGE MEDICATIONS: See Medication Reconciliation list. DISCHARGE INSTRUCTIONS: Patient was discharged home. Follow-up with a primary care provider in 1 week I have been assigned to dictate discharge summary for this account. Cait Melchor NP Feb 03, 2020 13:14
== END 2020-02-02 14:40 | disposition home or self-care (01) | DRG 811 ==
LOC: EDBD 14:04 → EDUNIT# 14:04 → EMR 14:28 → 2E 15:45 → EDBEDREQ 18:14
PROC: 30233N1 Transfusion of Nonautologous Red Blood Cells into Peripheral Vein, Percutaneous Approach (ICD-10-PCS; principal; 2020-01-28)
DX: D46.9 Myelodysplastic syndrome, unspecified (principal); E43 Unspecified severe protein-calorie malnutrition; K80.10 Calculus of gallbladder with chronic cholecystitis without obstruction; D75.81 Myelofibrosis; J44.9 Chronic obstructive pulmonary disease, unspecified; Z15.89 Genetic susceptibility to other disease; D45 Polycythemia vera; I95.9 Hypotension, unspecified; R62.7 Adult failure to thrive; E86.0 Dehydration; I25.10 Atherosclerotic heart disease of native coronary artery without angina pectoris; Z95.0 Presence of cardiac pacemaker; E78.5 Hyperlipidemia, unspecified; I48.0 Paroxysmal atrial fibrillation; I27.20 Pulmonary hypertension, unspecified; G47.33 Obstructive sleep apnea (adult) (pediatric); E03.9 Hypothyroidism, unspecified; I11.0 Hypertensive heart disease with heart failure; I50.9 Heart failure, unspecified; Z86.73 Personal history of transient ischemic attack (TIA), and cerebral infarction without residual deficits
CPT/HCPCS: 36415; 71045; 71275; 74177; 80048; 80053; 80061; 80162; 82248; 83615; 83735; 84100; 84439; 84443; 84481; 85007; 85025; 85044; 85610; 85651; 85730; 86850; 86900; 86901; 86920; 93005; 96360; 96361; 99291; U0002

== ENCOUNTER 2020-03-14 11:14 | Inpatient (IN) | payer MEDICARE, OTHER ==
[~2020-03-14] VITALS: Ht 157.5 cm; Wt 42.2 kg
[~2020-03-14 11:14] MED LIST changes: +LOPRESSOR25 M1 ORAL; +SYNTHROID25 MCG ORAL
--- NOTE | 2020-03-14 11:54 | Emergency Room Report ---
History of Present Illness General Chief Complaint: Generalized Weakness Source: Medical Record Present Illness HPI 79 years old female with past medical history significant for atrial fibrillation, polycythemia vera, myelofibrosis, history of JAK2 mutation, myelodysplasia, history of CVA, obstructive sleep apnea, coronary artery disease, dyslipidemia, congestive heart failure, sick sinus syndrome, status post pacemaker implantation, right hemithorax June 2019, status post VATS recent position for transfusion for myelodysplastic syndrome, patient required 6 units of blood, on chart review, patient presents with a week of generalized weakness no known aggravating relieving factors severity is severe, constant history is limited due to patient's medical condition Allergies: Coded Allergies: No Known Allergies (Unverified , 04/24/18) COVID-19 Screening Contact w/high risk pt: No Recent Travel to affected area: No Experienced COVID-19 symptoms?: No COVID-19 Testing performed DIGITAL COMMENTATOR: No Patient History Limited by: medical condition - Not answering questions confused Past Medical History: see triage record Now: No Reviewed Nursing Documentation: PMH: Agreed; PSxH: Agreed Nursing Documentation-PMH Past Medical History: No History, Except For Hx Cardiac Problems: Yes Hx Hypertension: Yes Hx Pacemaker: Yes - left chest Hx Asthma: No Hx COPD: No Hx Diabetes: No Hx Cancer: Yes - Myelofibrosis Hx Gastrointestinal Problems: No Hx Dialysis: No History Of Psychiatric Problem: No Hx Neurological Problems: Yes Hx Cerebrovascular Accident: Yes Hx Transient Ischemic Attacks: Yes Hx Seizures: No Hx Headaches: Yes Hx Numbness: Yes Hx Weakness: Yes - Generalized weakness Review of Systems All Other Systems: negative except mentioned in HPI Physical Exam Vital Signs Date Time Temp Pulse Resp B/P (MAP) Pulse Ox O2 Delivery O2 Flow Rate FiO2 03/14/20 11:33 97.7 18 20 103/56 (72) 92 Room Air Sp02 EP Interpretation: reviewed, normal General Appearance: mild distress, cachetic, thin, Chronically Ill Head: normocephalic, atraumatic Eyes: bilateral eye PERRL, bilateral eye EOMI, bilateral eye conjunctivae pale ENT: uvula midline, moist mucus membranes Neck: supple, thyroid normal, supple/symm/no masses Respiratory: lungs clear, no respiratory distress, no retraction, no accessory muscle use Cardiovascular #1: normal peripheral pulses, regular rate, rhythm, no edema, no gallop, no murmur Gastrointestinal: non tender, soft, no guarding, no rebound Musculoskeletal: normal inspection Neurologic: alert, responsive, other - Moves all 4 extremities Psychiatric: mood/affect normal Skin: no rash, warm/dry Procedures Critical Care Time Critical Care Time Given the critical condition in which the patient arrived, the patient was immediately assessed by myself and the nurse, and cardiac monitoring initiated due to the potential for rapid decompensation of the patient's clinical condition. During the course of the patient's stay, I spent a considerable amount of time at the bedside performing serial re-evaluations of the patient's hemodynamic and clinical status because of the recognized potential threat to life or limb in this condition. I then had a chance to review not only all of the available current laboratory and radiographic studies obtained today, but I also reviewed old records available to me at the time. Additionally, any ancillary information available including deck steward records were reviewed. Sequential vital signs were obtained. Critical Care time of 31 minutes was performed exclusive of billable procedures. 79-year-old female patient anemic to hemoglobin of 5 patient is at risk of high- output failure, will start hemoglobin transfusion patient will need multiple units of transfusion Medical Decision Making Diagnostic Impression: Primary Impression: Altered mental state Additional Impression: Signs and symptoms of anemia EKG Diagnostic Results Troponin ordered: Yes When was troponin ordered?: Mar 14, 2020 EKG Time: 12:09 EP Interpretation: A paced, rate 65, QTc 424, no acute ST elevations, normal axis Rhythm Strip Diag. Results Rhythm Strip Time: 12:46 EP Interpretation: yes Rate: 65 Rhythm: other - a paced Last Vital Signs Date Time Temp Pulse Resp B/P (MAP) Pulse Ox O2 Delivery O2 Flow Rate FiO2 03/14/20 11:33 97.7 18 20 103/56 (72) 92 Room Air Referrals: Antonio Adrian MD (PCP) Santiago Scanlon MD Mar 14, 2020 11:54
[2020-03-14 12:11] VITALS: BP 98/50
[2020-03-14 12:36] LABS: HEMATOCRIT 15.4 % (37.0-47.0); MEAN CORPUSCULAR VOLUME 84 FL (80-99); PLATELET COUNT 208 K/UL (150-450); RED BLOOD COUNT 1.83 M/UL (4.20-5.40); WHITE BLOOD COUNT 4.5 K/UL (4.8-10.8)
[2020-03-14] MEDS ORDERED: cefTRIAXone 1 GM in NS 55 ML IVPB ONE (12:45)
[2020-03-14 12:53] LABS: APPEARANCE,URINE CLEAR; BILIRUBIN, URINE NEGATIVE (NEGATIVE); GLUCOSE, URINE (UA) NEGATIVE (NEGATIVE); KETONES,URINE NEGATIVE (NEGATIVE); LEUKOCYTE ESTERASE ,URINE 1+ (NEGATIVE); NITRITE,URINE NEGATIVE (NEGATIVE); PH,URINE 6 (4.5-8.0); PROTEIN,URINE 2+ (NEGATIVE); UROBILINOGEN,URINE 1 MG/DL (0.0-1.0)
[2020-03-14 12:54] LABS: COLOR,URINE YELLOW
[2020-03-14 12:55] LABS: ANION GAP 8 mmol/L (5-15); BLOOD UREA NITROGEN 29 mg/dL (7-18); CALCIUM 8.7 MG/DL (8.5-10.1); CARBON DIOXIDE 25 MMOL/L (21-32); CHLORIDE 106 MMOL/L (98-107); CREATININE 0.8 MG/DL (0.55-1.30); POTASSIUM 4.5 MMOL/L (3.5-5.1); SODIUM 139 MMOL/L (136-145)
[2020-03-14 13:08] LABS: ALANINE AMINOTRANSFERASE 19 U/L (12-78); ALBUMIN 2.9 G/DL (3.4-5.0); ALBUMIN/GLOBULIN RATIO 0.7 (1.0-2.7); ALKALINE PHOSPHATASE 99 U/L (46-116); ASPARTATE AMINO TRANSFERASE 16 U/L (15-37); BILIRUBIN,TOTAL 0.7 MG/DL (0.2-1.0); CREATINE KINASE 22 U/L (26-308); PHOSPHORUS 3.7 MG/DL (2.5-4.9)
--- NOTE | 2020-03-14 15:31 | NUR ---
Patient brought in to ER with report of weakness. Per report, patient has had generalized weakness for over a week with no known aggravating factors. Patient herself reports pain through her entire body and screams out in pain when she is touched. Cardiac monitoring started with labs drawn and sent to lab. 20 G Peripheral IV placed to and [facility]. Liang catheter inserted and tolerated. She appears thin. No respiratory distress noted. Alert and responsive with stable affect. Skin is warm and dry. Awaiting lab results.
--- NOTE | 2020-03-14 15:43 | NUR ---
Rate changed to 85
--- NOTE | 2020-03-14 15:59 | Diagnostic Imaging Report ---
Indication: Cough Technique: One view of the chest Comparison: 02/01/2020 Findings: Previously demonstrated hazy bilateral opacities are no longer evident. The lungs and pleural spaces are currently clear, except for mild interstitial prominence which is probably due to senescent change. The heart is borderline enlarged. There is a left chest pacemaker. There are degenerative changes of both shoulders. Impression: Findings as noted. No definite process
--- NOTE | 2020-03-14 15:59 | Consultation ---
Consult Note Consult Note I am asked to evaluate the patient at the request of Chief Complaint: Generalized Weakness 79 years old female with past medical history significant for atrial fibrillation, polycythemia vera, myelofibrosis, history of JAK2 mutation, myelodysplasia, history of CVA, obstructive sleep apnea, coronary artery disease, dyslipidemia, congestive heart failure, sick sinus syndrome, status post pacemaker implantation, right hemithorax June 2019, status post VATS recent position for transfusion for myelodysplastic syndrome, patient required 6 units of blood, on chart review, patient presents with a week of generalized weakness no known aggravating relieving factors severity is severe, constant history is limited due to patient's medical condition Allergies: No Known Allergies (Unverified , 04/24/18) COVID-19 Screening Contact w/high risk pt: No Recent Travel to affected area: No Experienced COVID-19 symptoms?: No COVID-19 Testing performed DOOR OPENER: No Past Medical History: No History, Except For Hx Cardiac Problems: Yes Hx Hypertension: Yes Hx Pacemaker: Yes - left chest Hx Cancer: Yes - Myelofibrosis Hx Neurological Problems: Yes Hx Cerebrovascular Accident: Yes Hx Transient Ischemic Attacks: Yes Hx Headaches: Yes Hx Numbness: Yes Hx Weakness: Yes - Generalized weakness Vital Signs Date Time Temp Pulse Resp B/P (MAP) Pulse Ox O2 Delivery O2 Flow Rate FiO2 03/14/20 11:33 97.7 18 20 103/56 (72) 92 Room Air PHYSICAL EXAMINATION: VITAL SIGNS: Blood pressure 110/70, pulse is 67, respirations 18, she is afebrile. HEAD AND NECK: Showed no JVD. LUNGS: Clear. CARDIOVASCULAR: Regular S1 and S2 with no gallop. Pacemaker in left subclavian. ABDOMEN: Soft. EXTREMITIES: No pitting edema. LABORATORY AND DIAGNOSTIC DATA: Labs show white count of 3.8, hemoglobin was 5, improved to 5.6, and platelet count was 200. Sodium is 140, potassium 4.2, BUN of 23, creatinine 0.7, and glucose of 91. Troponin is negative x2. Digoxin level is 0.9. . Assessment/Plan Symptomatic anemia Hypotension Proteinuria, hypoalbuminemia Encephalopathy Transfusion digital advisor Keep the blood pressure and heart rate in check Per orders Sudhakar Griggs MD Mar 14, 2020 15:59
--- NOTE | 2020-03-14 16:00 | NUR ---
NURSE NOTES: Received patient report from Tiffanie ROTH from ER. Patient on RA satting at 97%, breathing is even and unlabored with no signs of respiratory distress. Patient HGB is 5.0, patient started on 1 unit PRBC in ER and will continue here in tele. PAtient is AO x4. No pain or discomort noted at this time. senior director insight in place. Bed in lowest position locked, with side rails x2 up. Call light within reach.
[2020-03-14 16:25] VITALS: BP 121/54
[2020-03-14] MEDS ORDERED: Acetaminophen 500mg (ES) tab ORAL PRN (17:00)
[2020-03-14 17:06] LABS: FERRITIN 1639 NG/ML (8-388)
[2020-03-14 17:07] LABS: % IRON SATURATION 78 % (15-50); IRON 105 ug/dL (50-175); TOTAL IRON BINDING CAPACITY 135 ug/dL (250-450)
--- NOTE | 2020-03-14 19:15 | NUR ---
NURSE HAND-OFF REPORT: Important Events on Shift:1 unit PRBC given Patient Status: Stable Diet: regular Pending Orders: NA Pending Results/Labs:NA Pending MD notification:NA Latest Vital Signs: Temperature 97.8 , Pulse 65 , B/P 121 /54 , Respiratory Rate 18 , O2 SAT 98 , Room Air, O2 Flow Rate . Vital Sign Comment: Stable EKG Rhythm: Sinus Rhythm Rhythm change?: N MD Notified?: - MD Response: Latest Yepez Fall Score: 20 Fall Risk: Low Risk Safety Measures: Call light Within Reach, Bed Alarm Zone 1, Side Rails Side Rails x2, Bed position Low and Locked. Fall Precautions: Yellow Socks Report given to IRA Crum .
--- NOTE | 2020-03-14 19:30 | History & Physical ---
History and Physical History & Physicial Dictated for Int Med Dr Adrian no. [id number] Roshan Edwards MD Mar 14, 2020 19:30
[2020-03-14 20:00] VITALS: BP 117/64
--- NOTE | 2020-03-14 20:11 | NUR ---
NURSE NOTES: Received patient report from IRA Bautista. Patient is AO x3 awake and able to make needs known. Patient shows no signs of distress or pain at the time. Patient is on room air and shows no signs of respiratory distress. IV is intact and patent. There are no signs of erythema, infiltration, or bleeding. Bed is in the lowest position, call light is within reach, side rails up x3. Will continue to monitor.
--- NOTE | 2020-03-14 20:14 | History and Physical Report ---
DATE OF ADMISSION: 03/14/2020 CHIEF COMPLAINT: Patient is an 79-year-old female, who presents with a chief complaint of generalized weakness. HISTORY OF PRESENT ILLNESS: Patient was admitted to [facility] in January of 2020. Please see history and physical and discharge summary dictated at that time. Patient has a history of polycythemia vera with myelofibrosis. Patient has a history of JAK2 mutation. Patient was transfused during the last hospitalization. Patient presented to [facility] complaining of 2-week history of generalized weakness. Patient was found to have hemoglobin of 5.0. Patient is admitted with severe anemia secondary to polycythemia vera and myelofibrosis. REVIEW OF SYSTEMS: Unable to assess secondary to patient's mental status. PAST MEDICAL HISTORY: Significant for: 1. Atrial fibrillation. 2. Polycythemia vera. 3. Myelofibrosis. 4. JAK2 mutation. 5. Myelodysplasia. 6. Cerebrovascular disease, status post cerebrovascular accident. 7. Obstructive sleep apnea. 8. Coronary artery disease. 9. Congestive heart failure. 10. Sick sinus syndrome. PAST SURGICAL HISTORY: Significant for: 1. VATS procedure for right hemothorax in June of 2019. 2. Pacemaker implantation. 3. Total abdominal hysterectomy. CURRENT MEDICATIONS: 1. Amiodarone 200 mg 1 tablet p.o. daily. 2. Furosemide 20 mg p.o. daily. 3. Gabapentin 400 mg p.o. 3 times daily. 4. Synthroid 25 mcg 1 tablet p.o. daily. 5. Metoprolol 25 mg p.o. twice daily. 6. Metoprolol 50 mg p.o. twice daily. 7. Digoxin 0.125 mg p.o. daily. ALLERGIES: No known drug allergies. SOCIAL HISTORY: Patient is single and lives at home with her niece. Patient denies tobacco or alcohol use. PHYSICAL EXAMINATION: VITAL SIGNS: Temperature 97.7, respirations 20, pulse 78, blood pressure 103/56. GENERAL: Patient is well-developed, well-nourished, ill-appearing female who is nonverbal. HEENT: Eyes pupils are equal and responsive to light and accommodation. Extraocular movements are intact. NECK: Supple. No lymphadenopathy. CHEST: Lungs are clear to auscultation bilaterally without wheezes or rales. CARDIOVASCULAR: Regular rhythm and rate. S1 and S2 are normal without murmurs, rubs, or gallops. ABDOMEN: Soft, nontender, and nondistended. Positive bowel sounds. No evidence of hepatosplenomegaly. Currently, no rebound or guarding noted. EXTREMITIES: Negative for clubbing, cyanosis, or edema. RECTAL: Not performed. GENITAL: Not performed. NEUROLOGIC: Cranial nerves II through XII grossly intact without focal deficits. Motor strength is 5/5 bilaterally. Deep tendon reflexes are 2+ plantar. LABORATORY STUDIES: WBC 4.5, hemoglobin 5.0, hematocrit 15.4, platelets 208,000. Sodium 139, potassium 4.5, chloride 106, CO2 25, BUN 29, creatinine 0.8, glucose 112. Iron 105, total iron binding capacity 135, % iron saturation 78% ferritin 1639. ASSESSMENT: This is an 79-year-old female. 1. Severe anemia. 2. Generalized weakness. 3. Atrial fibrillation. 4. Polycythemia vera. 5. Myelofibrosis. 6. JAK2 mutation. 7. Myelodysplasia. 8. Cerebrovascular disease. 9. Obstructive sleep apnea. 10. Chronic obstructive pulmonary disease. 11. Coronary artery disease. 12. Congestive heart failure. 13. Sick sinus syndrome. TREATMENT: 1. Severe anemia. Patient has been typed and crossed for 2 units of packed RBCs. Transfuse 2 units when available. Severe anemia is probably secondary to myelofibrosis secondary to polycythemia vera. 2. Atrial fibrillation/sick sinus syndrome. Patient is status post pacemaker implantation. A Cardiology consultation has been obtained with Dr. River Freitas. Follow recommendation of Cardiology. 3. Polycythemia vera/myelofibrosis/JAK2 mutation/myelodysplasia. 4. Cerebrovascular disease, status post cerebrovascular accident. 5. Obstructive sleep apnea. 6. Chronic obstructive pulmonary disease. 7. Coronary artery disease. 8. Congestive heart failure. Roshan Edwards M.D. DR: BRANDON JOB#: [id number] CC:
[2020-03-14] MEDS: Heparin 5000 units/ml inj SUBQ SCH (21:07)
[2020-03-15] VITALS: BP 113/65
[2020-03-15 04:00] VITALS: BP 110/65
[2020-03-15] MEDS: Levothyroxine 25mcg tab ORAL SCH (05:37)
[2020-03-15 07:20] LABS: HEMATOCRIT 16.5 % (37.0-47.0); MEAN CORPUSCULAR VOLUME 84 FL (80-99); PLATELET COUNT 200 K/UL (150-450); RED BLOOD COUNT 1.96 M/UL (4.20-5.40); RED CELL DISTRIBUTION WIDTH 15.9 % (11.6-14.8); WHITE BLOOD COUNT 3.8 K/UL (4.8-10.8)
[2020-03-15 07:22] LABS: APPEARANCE,URINE CLEAR; BILIRUBIN, URINE NEGATIVE (NEGATIVE); GLUCOSE, URINE (UA) NEGATIVE (NEGATIVE); KETONES,URINE NEGATIVE (NEGATIVE); LEUKOCYTE ESTERASE ,URINE 1+ (NEGATIVE); NITRITE,URINE NEGATIVE (NEGATIVE); PH,URINE 6 (4.5-8.0); PROTEIN,URINE 2+ (NEGATIVE); UROBILINOGEN,URINE 1 MG/DL (0.0-1.0)
[2020-03-15 07:32] LABS: HEMOGLOBIN 5.6 G/DL (12.0-16.0)
--- NOTE | 2020-03-15 07:32 | NUR ---
NURSE HAND-OFF REPORT: Important Events on Shift:[Patient had bowel movement] Patient Status: [Full code] Diet: [Regular] Pending Orders: [] Pending Results/Labs:[] Pending MD notification:[] Latest Vital Signs: Temperature 98.3 , Pulse 71 , B/P 110 /65 , Respiratory Rate 18 , O2 SAT 98 , Room Air, O2 Flow Rate . Vital Sign Comment: [] EKG Rhythm: Sinus Rhythm Rhythm change?: N MD Notified?: - MD Response: Latest Yepez Fall Score: 20 Fall Risk: Low Risk Safety Measures: Call light Within Reach, Bed Alarm Zone 2, Side Rails Side Rails x2, Bed position Low and Locked. Fall Precautions: Yellow Socks Yellow Gown Patient Fall Education Report given to IRA Foster[].
--- NOTE | 2020-03-15 07:35 | NUR ---
CASE MANAGEMENT: 79 YR OLD FEMALE PRESENTED TO ER PMH: HAS CAREGIVER CC: INCREASE LETHARGY,WEAKNESS X1 WEEK. USUALLY AMBULATES WITH CANE...UNABLE TO AMBULATE SI: SYMPTOMATIC ANEMIA 97.7 67 18 20 98/50 92% ON RA H/H-5.0/15.4 IS: 1L NS BOLUS IV ROCEPHIN CXR BLOOD CX TYPE&SCREEN TRANSFUSE PRBC : TO TELEMETRY DCP; FROM HOME WITH CAREGIVER
--- NOTE | 2020-03-15 07:35 | NUR ---
NURSE NOTES: Received patient in bed awake. IV lines intact. FC intact, draining yellow colored urine. HOB elevated. Bed locked in low position. Call light within reach. Will continue plan of care. Hgb 5.6, Dr Adrina made aware, left message, awaiting response.
[2020-03-15 07:40] LABS: COLOR,URINE YELLOW
[2020-03-15 07:57] LABS: ALANINE AMINOTRANSFERASE 17 U/L (12-78); ALBUMIN 2.6 G/DL (3.4-5.0); ALBUMIN/GLOBULIN RATIO 0.7 (1.0-2.7); ALKALINE PHOSPHATASE 105 U/L (46-116); ANION GAP 7 mmol/L (5-15); ASPARTATE AMINO TRANSFERASE 16 U/L (15-37); BILIRUBIN,TOTAL 0.7 MG/DL (0.2-1.0); BLOOD UREA NITROGEN 26 mg/dL (7-18); CALCIUM 8.2 MG/DL (8.5-10.1); CARBON DIOXIDE 24 MMOL/L (21-32); CHLORIDE 109 MMOL/L (98-107); CHOLESTEROL 109 MG/DL (< 200); CREATININE 0.7 MG/DL (0.55-1.30); GAMMA GLUTAMYL TRANSPEPTIDASE 67 U/L (5-85); HDL CHOLESTEROL 33 MG/DL (40-60); PHOSPHORUS 3.3 MG/DL (2.5-4.9); POTASSIUM 4.2 MMOL/L (3.5-5.1); SODIUM 140 MMOL/L (136-145); TRIGLYCERIDES 94 MG/DL (30-150)
[2020-03-15 08:00] VITALS: BP 115/56
[2020-03-15] MEDS: Digoxin 0.125mg tab ORAL SCH (08:55)
[2020-03-15] MEDS: Heparin 5000 units/ml inj SUBQ SCH ×2 (08:56→20:48)
[2020-03-15] MEDS: Amiodarone 200mg tab ORAL SCH (08:56)
--- NOTE | 2020-03-15 09:15 | Cardiac Electrophysiology PN ---
Assessment/Plan Assessment/Plan 1. Hypertension. On Lopressor 25 po bid 2. Status post [employer] pacer in 2010 and generator change by me in 2019. 3. Paroxysmal atrial fibrillation with rapid ventricular response. On digoxin, metoprolol and amiodarone. Off anticoagulation for recurrent bleeding and profound anemia. 4. Profound anemia with hemoglobin of 3 to 4. S/P 6 units of blood transfusion last admission in 01/2020 Now Hb 5 and received 1 unit and Hb 5.7. 5. History of hemothorax, status post VATS. 6. History for pulmonary hypertension. 7. Polycythemia vera. 8. Myelofibrosis. Subjective Subjective [id number] Objective Last 24 Hour Vital Signs Date Time Temp Pulse Resp B/P (MAP) Pulse Ox O2 Delivery O2 Flow Rate FiO2 03/15/20 08:56 68 115/56 03/15/20 08:55 68 03/15/20 08:00 96.4 68 18 115/56 (75) 97 03/15/20 04:00 98.3 71 18 110/65 (80) 98 03/15/20 04:00 70 03/15/20 00:00 99.1 67 18 113/65 (81) 98 03/15/20 00:00 64 03/14/20 21:06 69 117/64 03/14/20 21:00 Room Air 03/14/20 20:00 64 03/14/20 20:00 98.6 69 19 117/64 (81) 96 03/14/20 16:25 65 03/14/20 16:25 97.8 64 18 121/54 (76) 98 03/14/20 16:25 Room Air 03/14/20 16:17 61 12 Room Air 99 03/14/20 15:44 97.9 61 11 03/14/20 15:24 97.3 67 12 03/14/20 12:11 97.1 69 20 98/50 100 Room Air 03/14/20 12:00 78 20 Room Air 03/14/20 11:33 97.7 18 20 103/56 (72) 92 Room Air Intake and Output 03/14/20 03/15/20 19:00 07:00 Intake Total 2120 ml 150 ml Output Total 200 ml 1200 ml Balance 1920 ml -1050 ml Intake Oral 120 ml 150 ml IV Total 2000 ml Output Urine Total 200 ml 1200 ml # Bowel Movements 1 1 Laboratory Tests Test 03/14/20 11:59 03/14/20 12:30 03/15/20 04:00 03/15/20 06:29 White Blood Count 4.5 K/UL (4.8-10.8) L 3.8 K/UL (4.8-10.8) L Red Blood Count 1.83 M/UL (4.20-5.40) L 1.96 M/UL (4.20-5.40) L Hemoglobin 5.0 G/DL (12.0-16.0) *L 5.6 G/DL (12.0-16.0) *L Hematocrit 15.4 % (37.0-47.0) L 16.5 % (37.0-47.0) L Mean Corpuscular Volume 84 FL (80-99) 84 FL (80-99) Mean Corpuscular Hemoglobin 27.2 PG (27.0-31.0) 28.3 PG (27.0-31.0) Mean Corpuscular Hemoglobin Concent 32.5 G/DL (32.0-36.0) 33.7 G/DL (32.0-36.0) Red Cell Distribution Width 19.0 % (11.6-14.8) H 15.9 % (11.6-14.8) H Platelet Count 208 K/UL (150-450) 200 K/UL (150-450) Mean Platelet Volume 12.1 FL (6.5-10.1) H 12.5 FL (6.5-10.1) H Neutrophils (%) (Auto) % (45.0-75.0) % (45.0-75.0) Lymphocytes (%) (Auto) % (20.0-45.0) % (20.0-45.0) Monocytes (%) (Auto) % (1.0-10.0) % (1.0-10.0) Eosinophils (%) (Auto) % (0.0-3.0) % (0.0-3.0) Basophils (%) (Auto) % (0.0-2.0) % (0.0-2.0) Differential Total Cells Counted 100 100 Neutrophils % (Manual) 62 % (45-75) 74 % (45-75) Lymphocytes % (Manual) 27 % (20-45) 22 % (20-45) Monocytes % (Manual) 3 % (1-10) 4 % (1-10) Eosinophils % (Manual) 0 % (0-3) 0 % (0-3) Basophils % (Manual) 3 % (0-2) H 0 % (0-2) Band Neutrophils 5 % (0-8) 0 % (0-8) Platelet Estimate Adequate Adequate Platelet Morphology Giant Platelets Occasional 1+ Hypochromasia 1+ 1+ Anisocytosis 2+ 1+ Ovalocytes Occasional Rare Sodium Level 139 MMOL/L (136-145) 140 MMOL/L (136-145) Potassium Level 4.5 MMOL/L (3.5-5.1) 4.2 MMOL/L (3.5-5.1) Chloride Level 106 MMOL/L (98-107) 109 MMOL/L (98-107) H Carbon Dioxide Level 25 MMOL/L (21-32) 24 MMOL/L (21-32) Anion Gap 8 mmol/L (5-15) 7 mmol/L (5-15) Blood Urea Nitrogen 29 mg/dL (7-18) H 26 mg/dL (7-18) H Creatinine 0.8 MG/DL (0.55-1.30) 0.7 MG/DL (0.55-1.30) Estimat Glomerular Filtration Rate > 60 mL/min (>60) > 60 mL/min (>60) Glucose Level 112 MG/DL (74-106) H 91 MG/DL (74-106) Lactic Acid Level 1.00 mmol/L (0.4-2.0) 0.70 mmol/L (0.4-2.0) Calcium Level 8.7 MG/DL (8.5-10.1) 8.2 MG/DL (8.5-10.1) L Phosphorus Level 3.7 MG/DL (2.5-4.9) 3.3 MG/DL (2.5-4.9) Magnesium Level 2.4 MG/DL (1.8-2.4) 2.3 MG/DL (1.8-2.4) Iron Level 105 ug/dL (50-175) Total Iron Binding Capacity 135 ug/dL (250-450) L Percent Iron Saturation 78 % (15-50) H Unsaturated Iron Binding 30 ug/dL (112-346) L Ferritin 1639 NG/ML (8-388) H Total Bilirubin 0.7 MG/DL (0.2-1.0) 0.7 MG/DL (0.2-1.0) Aspartate Amino Transf (AST/SGOT) 16 U/L (15-37) 16 U/L (15-37) Alanine Aminotransferase (ALT/SGPT) 19 U/L (12-78) 17 U/L (12-78) Alkaline Phosphatase 99 U/L (46-116) 105 U/L (46-116) Total Creatine Kinase 22 U/L (26-308) L Troponin I 0.000 ng/mL (0.000-0.056) 0.002 ng/mL (0.000-0.056) Pro-B-Type Natriuretic Peptide 9699 pg/mL (0-125) H 5122 pg/mL (0-125) H Total Protein 6.8 G/DL (6.4-8.2) 6.3 G/DL (6.4-8.2) L Albumin 2.9 G/DL (3.4-5.0) L 2.6 G/DL (3.4-5.0) L Globulin 3.9 g/dL 3.7 g/dL Albumin/Globulin Ratio 0.7 (1.0-2.7) L 0.7 (1.0-2.7) L Lipase 67 U/L (73-393) L Vitamin B12 Level 741 PG/ML (193-986) Folate 67.2 NG/ML (8.6-58.9) H Urine Color Yellow Yellow Urine Appearance Clear Clear Urine pH 6 (4.5-8.0) 6 (4.5-8.0) Urine Specific [place] 1.015 (1.005-1.035) 1.015 (1.005-1.035) Urine Protein 2+ (NEGATIVE) H 2+ (NEGATIVE) H Urine Glucose (UA) Negative (NEGATIVE) Negative (NEGATIVE) Urine Ketones Negative (NEGATIVE) Negative (NEGATIVE) Urine Blood Negative (NEGATIVE) 1+ (NEGATIVE) H Urine Nitrite Negative (NEGATIVE) Negative (NEGATIVE) Urine Bilirubin Negative (NEGATIVE) Negative (NEGATIVE) Urine Urobilinogen 1 MG/DL (0.0-1.0) H 1 MG/DL (0.0-1.0) H Urine Leukocyte Esterase 1+ (NEGATIVE) H 1+ (NEGATIVE) H Urine RBC 0-2 /HPF (0 - 2) 2-4 /HPF (0 - 2) H Urine WBC 2-4 /HPF (0 - 2) 2-4 /HPF (0 - 2) Urine Squamous Epithelial Cells Few /LPF (NONE/OCC) Occasional /LPF Urine Bacteria Few /HPF (NONE) Occasional /HPF (NONE) Hemoglobin A1c 5.7 % (4.3-6.0) Uric Acid 5.0 MG/DL (2.6-7.2) Gamma Glutamyl Transpeptidase 67 U/L (5-85) C-Reactive Protein, Quantitative 9.3 mg/dL (0.00-0.90) H Triglycerides Level 94 MG/DL (30-150) Cholesterol Level 109 MG/DL (< 200) LDL Cholesterol 16 mg/dL (<100) HDL Cholesterol 33 MG/DL (40-60) L Cholesterol/HDL Ratio 3.3 (3.3-4.4) Thyroid Stimulating Hormone (TSH) 4.167 uiU/mL (0.358-3.740) Digoxin Level 0.9 NG/ML (0.9-2.0) River Freitas MD Mar 15, 2020 09:15
--- NOTE | 2020-03-15 10:05 | NUR ---
NURSE NOTES: BT 1st unit PRBC started, will monitor for any adverse reactions.
--- NOTE | 2020-03-15 11:23 | NUR ---
RD ASSESSMENT & RECOMMENDATIONS SEE CARE ACTIVITY FOR COMPLETE ASSESSMENT DAILY ESTIMATED NEEDS: Needs based on underweight, cardiac/ 50kg 30-35 kcals/kg 2646-0679 total kcals 1.25-1.5 g protein/kg 63-75 g total protein 25-30 mL/kg 2994-4737 total fluid mLs NUTRITION DIAGNOSIS: Increased kcal/prot needs R/T underweight status as evidenced by pt @ 89% IBW w/ BMI of 18.5. CURRENT DIET:REGULAR PO DIET RECOMMENDATIONS: Regular/ texture as tolerated ADDITIONAL RECOMMENDATIONS: 1) Standing wt or calibrated bedscale wt for accurate CBW 2) Ensure Enlive BID w/ variable intake (350kcal/20g prot in 1 bottle) Add snacks to trays TID 3) BG monitoring 4) On lasix, closely monitor lytes, replete as needed 5) Sacral wound eval .
--- NOTE | 2020-03-15 11:47 | Consultation ---
DATE OF CONSULTATION: 03/15/2020 CARDIOLOGY CONSULTATION CONSULTING PHYSICIAN: River Freitas M.D. REFERRING PHYSICIAN: Antonio Adrian M.D. REASON FOR CONSULTATION: Management of hypertension, atrial fibrillation, and pacemaker. HISTORY OF PRESENT ILLNESS: The patient is a very pleasant 79-year-old lady under my cardiology care with history of hypertension, history of [employer] pacemaker implantation by me in 2010 as well as generator change by me in 2019. The patient also has paroxysmal atrial fibrillation and has been kept on digoxin, metoprolol, and amiodarone. She has been kept off anticoagulation for recurrent bleeding and profound anemia. The patient also has history of myelofibrosis and polycythemia with profound anemia with a hemoglobin of 3 to 4 in January and received 6 units of blood transfusion at that time. The patient presented to the emergency room for profound weakness and was found to have a hemoglobin of only 5. The patient received one unit of blood transfusion and admitted. Cardiology consultation was obtained for further evaluation. REVIEW OF SYSTEMS: Negative other than what was mentioned in history of present illness. PAST MEDICAL HISTORY: As mentioned above. FAMILY HISTORY: Noncontributory. SOCIAL HISTORY: Does not smoke or drink alcohol. PHYSICAL EXAMINATION: VITAL SIGNS: Blood pressure 110/70, pulse is 67, respirations 18, she is afebrile. HEAD AND NECK: Showed no JVD. LUNGS: Clear. CARDIOVASCULAR: Regular S1 and S2 with no gallop. Pacemaker in left subclavian. ABDOMEN: Soft. EXTREMITIES: No pitting edema. LABORATORY AND DIAGNOSTIC DATA: Labs show white count of 3.8, hemoglobin was 5, improved to 5.6, and platelet count was 200. Sodium is 140, potassium 4.2, BUN of 23, creatinine 0.7, and glucose of 91. Troponin is negative x2. Digoxin level is 0.9. ASSESSMENT AND PLAN: 1. . Resume the patient's metoprolol 25 mg. 2. Status post [employer] pacemaker in 2010 and generator change by me in 2019. The pacemaker will be interrogated for further evaluation. 3. Paroxysmal atrial fibrillation on digoxin, metoprolol, and amiodarone. Digoxin level is therapeutic, off anticoagulation for profound anemia. 4. Polycythemia vera and myelofibrosis with profound anemia with hemoglobin of 3.4 on last admission. On discharge in January, hemoglobin was up to 11, but today again hemoglobin is 5. The patient is receiving blood transfusion, followed by Hematology. 5. Status post VATS for history of hemothorax. 6. History of pulmonary hypertension. Thank you very much Dr. Adrian for allowing me to participate in the care of this patient. Please do not hesitate to contact me for any questions regarding my evaluation. Sincerely, River Freitas M.D. DR: Donna JOB#: [id number] CC:
[2020-03-15 11:49] VITALS: BP 108/55
--- NOTE | 2020-03-15 12:54 | Nephrology Progress Note ---
Assessment/Plan Problem List: (1) Anemia (2) Paroxysmal A-fib (3) Pacemaker (4) Hypotension (5) Proteinuria Assessment Symptomatic anemia Hypotension Proteinuria, hypoalbuminemia Encephalopathy Plan March 15: Labs reviewed. Stable from renal standpoint of view. Continues to be anemic. Transfusion hand therapist Keep the blood pressure and heart rate in check Per orders Subjective ROS Limited/Unobtainable: No Constitutional: Reports: malaise Objective Objective Last 24 Hour Vital Signs Date Time Temp Pulse Resp B/P (MAP) Pulse Ox O2 Delivery O2 Flow Rate FiO2 03/15/20 11:49 98.1 80 18 108/55 (72) 92 03/15/20 09:00 Room Air 03/15/20 08:56 68 115/56 03/15/20 08:55 68 03/15/20 08:00 74 03/15/20 08:00 96.4 68 18 115/56 (75) 97 03/15/20 04:00 98.3 71 18 110/65 (80) 98 03/15/20 04:00 70 03/15/20 00:00 99.1 67 18 113/65 (81) 98 03/15/20 00:00 64 03/14/20 21:06 69 117/64 03/14/20 21:00 Room Air 03/14/20 20:00 64 03/14/20 20:00 98.6 69 19 117/64 (81) 96 03/14/20 16:25 65 03/14/20 16:25 97.8 64 18 121/54 (76) 98 03/14/20 16:25 Room Air 03/14/20 16:17 61 12 Room Air 99 03/14/20 15:44 97.9 61 11 03/14/20 15:24 97.3 67 12 Intake and Output 03/14/20 03/15/20 19:00 07:00 Intake Total 2120 ml 150 ml Output Total 200 ml 1200 ml Balance 1920 ml -1050 ml Intake Oral 120 ml 150 ml IV Total 2000 ml Output Urine Total 200 ml 1200 ml # Bowel Movements 1 1 Current Medications Medications (Trade) Dose Ordered Sig/Escobar Route PRN Reason Start Time Stop Time Status Last Admin Dose Admin Acetaminophen (Tylenol) 500 mg Q6H PRN ORAL Mild Pain (Pain Scale 1-3) 03/14/20 17:00 04/13/20 16:59 Amiodarone HCl (Cordarone) 200 mg DAILY ORAL 03/15/20 09:00 06/13/20 08:59 03/15/20 08:56 Digoxin (Lanoxin) 0.125 mg DAILY ORAL 03/15/20 09:00 06/13/20 08:59 03/15/20 08:55 Furosemide (Lasix) 20 mg DAILY ORAL 03/15/20 09:00 04/14/20 08:59 03/15/20 08:56 Furosemide (Lasix) 20 mg ONCE PRN IV after first unit of PRBC 03/15/20 09:15 03/15/20 14:00 03/15/20 12:44 Gabapentin (Neurontin) 300 mg THREE TIMES A DAY ORAL 03/15/20 09:00 04/14/20 08:59 03/15/20 12:43 Heparin Sodium (Porcine) (Heparin 5000 units/ml) 5,000 units EVERY 12 HOURS SUBQ 03/14/20 21:00 04/28/20 20:59 03/15/20 08:56 Levothyroxine Sodium (Synthroid) 25 mcg DAILY@0630 ORAL 03/15/20 06:30 04/14/20 06:29 03/15/20 05:37 Metoprolol Tartrate (Lopressor) 25 mg Q12HR ORAL 03/14/20 21:00 06/12/20 20:59 03/15/20 08:56 Laboratory Tests 03/15/20 04:00: Urine Color Yellow, Urine Appearance Clear, Urine pH 6, Urine Specific [place] 1.015, Urine Protein 2+H, Urine Glucose (UA) Negative, Urine Ketones Negative, Urine Blood 1+H, Urine Nitrite Negative, Urine Bilirubin Negative, Urine Urob ilinogen 1H, Urine Leukocyte Esterase 1+H, Urine RBC 2-4H, Urine WBC 2-4, Urine Squamous Epithelial Cells Occasional, Urine Bacteria Occasional 03/15/20 06:29: White Blood Count 3.8L, Red Blood Count 1.96L, Hemoglobin 5.6*L, Hematocrit 16.5L, Mean Corpuscular Volume 84, Mean Corpuscular Hemoglobin 28.3, Mean Corpuscular Hemoglobin Concent 33.7, Red Cell Distribution Width 15.9H, Platelet Count 200, Mean Platelet Volume 12.5H, Neutrophils (%) (Auto) , Lymphocytes (%) (Auto) , Monocytes (%) (Auto) , Eosinophils (%) (Auto) , Basophils (%) (Auto) , Differential Total Cells Counted 100, Neutrophils % (Manual) 74, Lymphocytes % (Manual) 22, Monocytes % (Manual) 4, Eosinophils % (Manual) 0, Basophils % (Manual) 0, Band Neutrophils 0, Platelet Estimate Adequate, Platelet Morphology , Giant Platelets 1+, Hypochromasia 1+, Anisocytosis 1+, Ovalocytes Rare, Sodium Level 140, Potassium Level 4.2, Chloride Level 109H, Carbon Dioxide Level 24, Anion Gap 7, Blood Urea Nitrogen 26H, Creatinine 0.7, Estimat Glomerular Filtration Rate > 60, Glucose Level 91, Hemoglobin A1c 5.7, Lactic Acid Level 0.70, Uric Acid 5.0, Calcium Level 8.2L, Phosphorus Level 3.3, Magnesium Level 2.3, Total Bilirubin 0.7, Gamma Glutamyl Transpeptidase 67, Aspartate Amino Transf (AST/SGOT) 16, Alanine Aminotransferase (ALT/SGPT) 17, Alkaline Phosphatase 105, Troponin I 0.002, C-Reactive Protein, Quantitative 9.3H, Pro-B-Type Natriuretic Peptide 5122H, Total Protein 6.3L, Albumin 2.6L, Globulin 3.7, Albumin/Globulin Ratio 0.7L, Triglycerides Level 94, Cholesterol Level 109, LDL Cholesterol 16, HDL Cholesterol 33L, Cholesterol/HDL Ratio 3.3, Thyroid Stimulating Hormone (TSH) 4.167H, Digoxin Level 0.9 Height (Feet): 5 Height (Inches): 2.00 Weight (Pounds): 93 General Appearance: no apparent distress Cardiovascular: normal rate Respiratory/Chest: decreased breath sounds Abdomen: soft Sudhakar Griggs MD Mar 15, 2020 12:54
--- NOTE | 2020-03-15 14:00 | NUR ---
NURSE NOTES: BT of 2nd unit PRBC started. Will continue to monitor.
--- NOTE | 2020-03-15 14:15 | NUR ---
NURSE NOTES: Dr Adrian informed of blood culture result: gram (+) cocci in clusters, 1 bottle. Left message, awaiting response.
--- NOTE | 2020-03-15 15:00 | NUR ---
NURSE NOTES: P200 mattress placed.
--- NOTE | 2020-03-15 15:06 | Consultation ---
History of Present Illness General Date patient seen: Mar 15, 2020 Reason for Hospitalization: Generalized Weakness Present Illness HPI This is a pleasant 79 years old female very well known to me from past admissions and surgery who has past medical history significant for atrial f ibrillation, polycythemia vera, myelofibrosis, history of JAK2 mutation, myelodysplasia, history of CVA, obstructive sleep apnea, coronary artery disease, dyslipidemia, congestive heart failure, sick sinus syndrome, status post pacemaker implantation, right hemithorax June 2019, status post VATS recent position for transfusion for myelodysplastic syndrome, patient required 6 units of blood, on chart review, patient presents with a week of generalized weakness no known aggravating relieving factors severity is severe, constant history is limited due to patient's medical condition. on admission noted to have multiple decubitus, low bmi, ftt. surgery called to evaluate. Allergies: Coded Allergies: No Known Allergies (Unverified , 04/24/18) COVID-19 Screening Contact w/high risk pt: No Recent Travel to affected area: No Experienced COVID-19 symptoms?: No Medication History Scheduled Amiodarone Hcl* (Pacerone*), 200 MG ORAL DAILY, (Reported) Furosemide* (Lasix*), 20 MG ORAL DAILY Gabapentin* (Gabapentin*), 300 MG ORAL THREE TIMES A DAY, (Reported) Levothyroxine Sodium* (Synthroid*), 25 MCG ORAL DAILY@0630 Metoprolol Tartrate (Metoprolol Tartrate), 25 MG ORAL Q12HR Metoprolol Tartrate* (Metoprolol Tartrate*), 50 MG ORAL EVERY 12 HOURS [Digoxin], 0.125 MG ORAL DAILY Scheduled PRN Acetaminophen* (Tylenol Extra Strength*), 500 MG ORAL Q6H PRN for For Pain, (Reported) Petrolatum,White/Lanolin (Vitamin A & D Ointment), 113 GM TP for dry skin, (Reported) Miscellaneous Medications Menthol/Zinc Oxide (Calmoseptine Ointment), 3.5 GM TP, (Reported) Patient History Limited by: age, medical condition History Provided By: Patient, Medical Record, PMD Healthcare decision maker Resuscitation status Advanced Directive on File Past Medical/Surgical History Past Medical/Surgical History: (1) Generalized weakness (2) Symptomatic anemia (3) Protein-calorie malnutrition, severe (4) Abnormal LFTs (5) Altered mental state (6) Signs and symptoms of anemia (7) Severe anemia (8) Hypotension (9) Proteinuria (10) ACS (acute coronary syndrome) (11) Pyelonephritis (12) CAD (coronary artery disease) (13) COPD (chronic obstructive pulmonary disease) (14) positional vertigo (15) KELVIN (obstructive sleep apnea) (16) Peripheral neuropathy (17) Myelofibrosis (18) JAK2 V617F mutation (19) UTI (urinary tract infection) (20) Polycythemia vera (21) Pacemaker (22) Acute encephalopathy (23) Chronic anticoagulation (24) RLL pneumonia (25) Hematothorax (26) Thoracostomy tube in place (27) Collapse of left lung (28) Paroxysmal A-fib (29) Anemia Review of Systems Review of Symptoms General ROS: no weight loss or fever Psychological ROS: no depression or mood changes, no memory loss Ophthalmic ROS: no visual changes or eye irritation ENT ROS: no nasal congestion, hearing loss, dizziness Allergy and Immunology ROS: no allergic symptoms or urticaria Hematological and Lymphatic ROS: no swollen glands, unusual bleeding or bruising Endocrine ROS: no polyuria, polydipsia, weight changes, temperature intolerance Respiratory ROS: no cough, shortness of breath, or wheezing Cardiovascular ROS: no chest pain or dyspnea on exertion Gastrointestinal ROS: denies abdominal pain, bright red blood in stool. Musculoskeletal ROS: no myalgias or arthralgias Neurological ROS: no TIA or stroke symptoms Dermatological ROS: no new or changing skin lesions, rashes or pruritis limited Physical Exam Physical Exam General appearance: alert, cooperative, no distress, appears stated age Head: Normocephalic, without obvious abnormality, atraumatic Eyes: conjunctivae/corneas clear. PERRL, EOM's intact. Fundi benign Throat: Lips, mucosa, and tongue normal. Teeth and gums normal Neck: supple, symmetrical, trachea midline, no adenopathy, thyroid: not enlarged, symmetric, no tenderness/mass/nodules, no carotid bruit and no JVD Lungs: clear to auscultation bilaterally Heart: regular rate and rhythm, S1, S2 normal, no murmur, click, rub or gallop Abdomen: soft, non-tender. Bowel sounds normal. No masses, no organomegaly Extremities: extremities normal, atraumatic, no cyanosis or edema Pulses: 2+ and symmetric Skin: Skin color, texture, turgor normal. No rashes or lesions Neurologic: Grossly normal Last 24 Hour Vital Signs Date Time Temp Pulse Resp B/P (MAP) Pulse Ox O2 Delivery O2 Flow Rate FiO2 03/15/20 13:36 97.7 03/15/20 12:00 62 03/15/20 11:49 98.1 80 18 108/55 (72) 92 03/15/20 09:00 Room Air 03/15/20 08:56 68 115/56 03/15/20 08:55 68 03/15/20 08:00 74 03/15/20 08:00 96.4 68 18 115/56 (75) 97 03/15/20 04:00 98.3 71 18 110/65 (80) 98 03/15/20 04:00 70 03/15/20 00:00 99.1 67 18 113/65 (81) 98 03/15/20 00:00 64 03/14/20 21:06 69 117/64 03/14/20 21:00 Room Air 03/14/20 20:00 64 03/14/20 20:00 98.6 69 19 117/64 (81) 96 03/14/20 16:25 65 03/14/20 16:25 97.8 64 18 121/54 (76) 98 03/14/20 16:25 Room Air 03/14/20 16:17 61 12 Room Air 99 03/14/20 15:44 97.9 61 11 03/14/20 15:24 97.3 67 12 Intake and Output 03/14/20 03/15/20 19:00 07:00 Intake Total 2120 ml 150 ml Output Total 200 ml 1200 ml Balance 1920 ml -1050 ml Intake Oral 120 ml 150 ml IV Total 2000 ml Output Urine Total 200 ml 1200 ml # Bowel Movements 1 1 Laboratory Tests Test 03/15/20 04:00 03/15/20 06:29 Urine Color Yellow Urine Appearance Clear Urine pH 6 (4.5-8.0) Urine Specific [place] 1.015 (1.005-1.035) Urine Protein 2+ (NEGATIVE) H Urine Glucose (UA) Negative (NEGATIVE) Urine Ketones Negative (NEGATIVE) Urine Blood 1+ (NEGATIVE) H Urine Nitrite Negative (NEGATIVE) Urine Bilirubin Negative (NEGATIVE) Urine Urobilinogen 1 MG/DL (0.0-1.0) H Urine Leukocyte Esterase 1+ (NEGATIVE) H Urine RBC 2-4 /HPF (0 - 2) H Urine WBC 2-4 /HPF (0 - 2) Urine Squamous Epithelial Cells Occasional /LPF Urine Bacteria Occasional /HPF (NONE) White Blood Count 3.8 K/UL (4.8-10.8) L Red Blood Count 1.96 M/UL (4.20-5.40) L Hemoglobin 5.6 G/DL (12.0-16.0) *L Hematocrit 16.5 % (37.0-47.0) L Mean Corpuscular Volume 84 FL (80-99) Mean Corpuscular Hemoglobin 28.3 PG (27.0-31.0) Mean Corpuscular Hemoglobin Concent 33.7 G/DL (32.0-36.0) Red Cell Distribution Width 15.9 % (11.6-14.8) H Platelet Count 200 K/UL (150-450) Mean Platelet Volume 12.5 FL (6.5-10.1) H Neutrophils (%) (Auto) % (45.0-75.0) Lymphocytes (%) (Auto) % (20.0-45.0) Monocytes (%) (Auto) % (1.0-10.0) Eosinophils (%) (Auto) % (0.0-3.0) Basophils (%) (Auto) % (0.0-2.0) Differential Total Cells Counted 100 Neutrophils % (Manual) 74 % (45-75) Lymphocytes % (Manual) 22 % (20-45) Monocytes % (Manual) 4 % (1-10) Eosinophils % (Manual) 0 % (0-3) Basophils % (Manual) 0 % (0-2) Band Neutrophils 0 % (0-8) Platelet Estimate Adequate Platelet Morphology Giant Platelets 1+ Hypochromasia 1+ Anisocytosis 1+ Ovalocytes Rare Sodium Level 140 MMOL/L (136-145) Potassium Level 4.2 MMOL/L (3.5-5.1) Chloride Level 109 MMOL/L (98-107) H Carbon Dioxide Level 24 MMOL/L (21-32) Anion Gap 7 mmol/L (5-15) Blood Urea Nitrogen 26 mg/dL (7-18) H Creatinine 0.7 MG/DL (0.55-1.30) Estimat Glomerular Filtration Rate > 60 mL/min (>60) Glucose Level 91 MG/DL (74-106) Hemoglobin A1c 5.7 % (4.3-6.0) Lactic Acid Level 0.70 mmol/L (0.4-2.0) Uric Acid 5.0 MG/DL (2.6-7.2) Calcium Level 8.2 MG/DL (8.5-10.1) L Phosphorus Level 3.3 MG/DL (2.5-4.9) Magnesium Level 2.3 MG/DL (1.8-2.4) Total Bilirubin 0.7 MG/DL (0.2-1.0) Gamma Glutamyl Transpeptidase 67 U/L (5-85) Aspartate Amino Transf (AST/SGOT) 16 U/L (15-37) Alanine Aminotransferase (ALT/SGPT) 17 U/L (12-78) Alkaline Phosphatase 105 U/L (46-116) Troponin I 0.002 ng/mL (0.000-0.056) C-Reactive Protein, Quantitative 9.3 mg/dL (0.00-0.90) H Pro-B-Type Natriuretic Peptide 5122 pg/mL (0-125) H Total Protein 6.3 G/DL (6.4-8.2) L Albumin 2.6 G/DL (3.4-5.0) L Globulin 3.7 g/dL Albumin/Globulin Ratio 0.7 (1.0-2.7) L Triglycerides Level 94 MG/DL (30-150) Cholesterol Level 109 MG/DL (< 200) LDL Cholesterol 16 mg/dL (<100) HDL Cholesterol 33 MG/DL (40-60) L Cholesterol/HDL Ratio 3.3 (3.3-4.4) Thyroid Stimulating Hormone (TSH) 4.167 uiU/mL (0.358-3.740) Digoxin Level 0.9 NG/ML (0.9-2.0) Height (Feet): 5 Height (Inches): 2.00 Weight (Pounds): 93 Medications Current Medications Medications (Trade) Dose Ordered Sig/Escobar Route PRN Reason Start Time Stop Time Status Last Admin Dose Admin Acetaminophen (Tylenol) 500 mg Q6H PRN ORAL Mild Pain (Pain Scale 1-3) 03/14/20 17:00 33/21 16:59 Acetaminophen (Tylenol) 650 mg Q6H PRN ORAL Temp >100.5 03/15/20 13:00 04/14/20 12:59 03/15/20 13:06 Amiodarone HCl (Cordarone) 200 mg DAILY ORAL 03/15/20 09:00 06/13/20 08:59 03/15/20 08:56 Digoxin (Lanoxin) 0.125 mg DAILY ORAL 03/15/20 09:00 06/13/20 08:59 03/15/20 08:55 Furosemide (Lasix) 20 mg DAILY ORAL 03/15/20 09:00 04/14/20 08:59 03/15/20 08:56 Gabapentin (Neurontin) 300 mg THREE TIMES A DAY ORAL 03/15/20 09:00 04/14/20 08:59 03/15/20 12:43 Heparin Sodium (Porcine) (Heparin 5000 units/ml) 5,000 units EVERY 12 HOURS SUBQ 03/14/20 21:00 04/28/20 20:59 03/15/20 08:56 Levothyroxine Sodium (Synthroid) 25 mcg DAILY@0630 ORAL 03/15/20 06:30 04/14/20 06:29 03/15/20 05:37 Metoprolol Tartrate (Lopressor) 25 mg Q12HR ORAL 03/14/20 21:00 06/12/20 20:59 03/15/20 08:56 Vancomycin HCl ([facility] pharmacy to dose) 1 ea DAILY PRN MISC Per rx protocol 03/15/20 14:30 04/14/20 14:29 Vancomycin HCl 500 mg/Sodium Chloride 110 ml @ 110 mls/hr Q24H IVPB 03/16/20 16:00 03/21/20 15:59 Vancomycin HCl 750 mg/Sodium Chloride 275 ml @ 183.333 mls/hr ONCE ONCE IVPB 03/15/20 16:00 03/15/20 17:29 Assessment/Plan Problem List: (1) Altered mental state ICD Codes: R41.82 - Altered mental status, unspecified SNOMED: 289464645, 708258722 (2) Signs and symptoms of anemia ICD Codes: D64.9 - Anemia, unspecified SNOMED: 24432434, 093842792 (3) Hypotension ICD Codes: I95.9 - Hypotension, unspecified SNOMED: 81009514 (4) Proteinuria ICD Codes: R80.9 - Proteinuria, unspecified SNOMED: 43087553 (5) Generalized weakness ICD Codes: R53.1 - Weakness SNOMED: 56198375 (6) Protein-calorie malnutrition, severe Assessment & Plan: bmi 17 now alb low needs optimization breaking down dti noted DAILY ESTIMATED NEEDS: Needs based on underweight, cardiac/ 50kg 30-35 kcals/kg 0271-0405 total kcals 1.25-1.5 g protein/kg 63-75 g total protein 25-30 mL/kg 4214-5296 total fluid mLs NUTRITION DIAGNOSIS: Increased kcal/prot needs R/T underweight status as evidenced by pt @ 89% IBW w/ BMI of 18.5. CURRENT DIET:REGULAR PO DIET RECOMMENDATIONS: Regular/ texture as tolerated ADDITIONAL RECOMMENDATIONS: 1) Standing wt or calibrated bedscale wt for accurate CBW 2) Ensure Enlive BID w/ variable intake (350kcal/20g prot in 1 bottle) Add snacks to trays TID 3) BG monitoring 4) On lasix, closely monitor lytes, replete as needed ICD Codes: E43 - Unspecified severe protein-calorie malnutrition SNOMED: 304982992, 833494833, 561989724 (7) Abnormal LFTs ICD Codes: R94.5 - Abnormal results of liver function studies SNOMED: 383115103 (8) Severe anemia Assessment & Plan: severe anemia. hx of bleeding held anticoagulation since prior right hemothorax s/p evacuation and vats transfusing prbc coags noted ddx includes possible GI hemorrhage. possible blood disorder protonix prior imaging reviewed as below abnormal lft's likely heme breakdown products thank you will follow with recs Gallbladder demonstrates a gallstone. This also reported on same day CT. Sonographic Camacho's sign is negative. Common bile duct measures 5 mm in diameter. No intrahepatic biliary ductal dilatation. Liver demonstrates normal echogenicity, no focal abnormality. Portal vein and hepatic veins are patent. Pancreas is unremarkable. The spleen demonstrates a complex upper pole cyst that measures 2.7 cm in diameter. The spleen is borderline enlarged. There are bilateral pleural effusions Left kidney measures 10.2 cm in length. Right kidney measures 9.2 cm length. Both kidneys demonstrate normal echogenicity. There is no hydronephrosis. No focal abnormality . Non-aneurysmal abdominal aorta . Impression: Cholelithiasis. Negative for dilated bile ducts 2.7 cm complex upper pole splenic cyst, also reported on prior imaging studies. Bilateral pleural effusions Chest: The lungs demonstrate a mosaic perfusion pattern, which is more striking than that seen previously. Some atelectasis and consolidation is seen involving both lower lobes. This appears similar on the right, slightly more extensive on the left. There is a moderate-sized right pleural effusion which appears similar to the previous study. There is a small left pleural effusion which is new since the previous study. Previous exam demonstrated a 1.5 cm opacity in the inferior right azygoesophageal recess. This is not evident currently although could be obscured by surrounding atelectatic lung. The heart is enlarged. There is a left chest pacemaker again demonstrated. No pericardial effusion. No mediastinal or hilar mass or adenopathy. Right lower pole thyroid calcification is again demonstrated. No axillary or chest wall mass or adenopathy. There are fairly profound degenerative changes of the bilateral shoulders. There is evidence of interim healing of previously demonstrated right rib fractures, nearly but not completely healed as some fracture lines persist. There are degenerative changes of the thoracic spine noted. Abdomen pelvis: What is probably a normal appendix is demonstrated. There is extensive colonic diverticulosis. No evidence of diverticulitis. The rectum is mildly distended, mostly with gas with some stool as well. No small bowel distention or small bowel wall thickening. Numerous surgical clips are seen in the retroperitoneum and left side of the pelvis. The stomach and duodenum are unremarkable. The gallbladder contains a gallstone. No biliary ductal dilatation. The liver is mildly enlarged. The pancreas is unremarkable. The spleen is enlarged, measuring 14 cm long axis dimension. It demonstrates a complex upper pole cyst, also previously demonstrated the adrenals and kidneys are unremarkable. There is a retroaortic left renal vein incidentally noted. The uterus is absent.. The bladder is unremarkable. The bones demonstrate degenerative spondylosis changes. IMPRESSION: Cardiomegaly Unchanged moderate right pleural effusion, since June 2019. New small left pleural effusion Bilateral mosaic perfusion pattern, probably on the basis of pulmonary edema Bilateral basilar compressive atelectasis and possible consolidation Interim healing of previously demonstrated right rib fractures Previously demonstrated right azygoesophageal recess lesion is no longer evident, may have resolved or may be obscured by surrounding lung parenchyma. Cholelithiasis Hepatomegaly Splenomegaly Splenic cystic lesion, unchanged from prior exam Postsurgical changes as described, including pacemaker, evidence of prior hysterectomy, evidence of prior pelvic lymph node dissection, prior hysterectomy ICD Codes: D64.9 - Anemia, unspecified SNOMED: 640301106 (9) Symptomatic anemia ICD Codes: D64.9 - Anemia, unspecified SNOMED: 806355705 (10) ACS (acute coronary syndrome) ICD Codes: I20.0 - Unstable angina SNOMED: 897504235 (11) Pyelonephritis ICD Codes: N12 - Tubulo-interstitial nephritis, not specified as acute or chronic SNOMED: 92604200 (12) CAD (coronary artery disease) ICD Codes: I25.10 - Atherosclerotic heart disease of [place] coronary artery without angina pectoris SNOMED: 61656055 (13) COPD (chronic obstructive pulmonary disease) ICD Codes: J44.9 - Chronic obstructive pulmonary disease, unspecified SNOMED: 23358726 (14) positional vertigo (15) KELVIN (obstructive sleep apnea) ICD Codes: G47.33 - Obstructive sleep apnea (adult) (pediatric) SNOMED: 65739413 (16) Peripheral neuropathy ICD Codes: G62.9 - Polyneuropathy, unspecified SNOMED: 006035140 (17) Myelofibrosis ICD Codes: D75.81 - Myelofibrosis SNOMED: 00175878 (18) JAK2 V617F mutation ICD Codes: Z15.89 - Genetic susceptibility to other disease SNOMED: 70997200 (19) UTI (urinary tract infection) ICD Codes: N39.0 - Urinary tract infection, site not specified SNOMED: 93208775 (20) Polycythemia vera ICD Codes: D45 - Polycythemia vera SNOMED: 612088373 (21) Pacemaker ICD Codes: Z95.0 - Presence of cardiac pacemaker SNOMED: 562925206 (22) Acute encephalopathy ICD Codes: G93.40 - Encephalopathy, unspecified SNOMED: 88276497, 826223150 (23) Chronic anticoagulation ICD Codes: Z79.01 - FPC (current) use of anticoagulants SNOMED: 419395144 (24) RLL pneumonia ICD Codes: J18.9 - Pneumonia, unspecified organism SNOMED: 690680292 (25) Hematothorax ICD Codes: J94.2 - Hemothorax SNOMED: 01954683 (26) Thoracostomy tube in place ICD Codes: Z96.89 - Presence of other specified functional implants SNOMED: 378849919 (27) Collapse of left lung ICD Codes: J98.11 - Atelectasis SNOMED: 33529445 (28) Paroxysmal A-fib ICD Codes: I48.0 - Paroxysmal atrial fibrillation SNOMED: 224487600 (29) Anemia ICD Codes: D64.9 - Anemia, unspecified SNOMED: 102897401 Errol Estrada Mar 15, 2020 15:06
[2020-03-15 15:33] VITALS: BP 109/52
[2020-03-15] MEDS ORDERED: Vancomycin 750mg/NS 275ml IVPB ONE ×2 (16:00)
--- NOTE | 2020-03-15 17:29 | Internal Med Progress Note ---
Subjective Date of Service: Mar 15, 2020 Physician Name Roshan Edwards Attending Physician Antonio Adrian MD Current Medications Medications (Trade) Dose Ordered Sig/Escobar Route PRN Reason Start Time Stop Time Status Last Admin Dose Admin Acetaminophen (Tylenol) 500 mg Q6H PRN ORAL Mild Pain (Pain Scale 1-3) 03/14/20 17:00 04/13/20 16:59 Acetaminophen (Tylenol) 650 mg Q6H PRN ORAL Temp >100.5 03/15/20 13:00 04/14/20 12:59 03/15/20 13:06 Amiodarone HCl (Cordarone) 200 mg DAILY ORAL 03/15/20 09:00 06/13/20 08:59 03/15/20 08:56 Digoxin (Lanoxin) 0.125 mg DAILY ORAL 03/15/20 09:00 06/13/20 08:59 03/15/20 08:55 Furosemide (Lasix) 20 mg DAILY ORAL 03/15/20 09:00 04/14/20 08:59 03/15/20 08:56 Gabapentin (Neurontin) 300 mg THREE TIMES A DAY ORAL 03/15/20 09:00 04/14/20 08:59 03/15/20 12:43 Heparin Sodium (Porcine) (Heparin 5000 units/ml) 5,000 units EVERY 12 HOURS SUBQ 03/14/20 21:00 04/28/20 20:59 03/15/20 08:56 Levothyroxine Sodium (Synthroid) 25 mcg DAILY@0630 ORAL 03/15/20 06:30 04/14/20 06:29 03/15/20 05:37 Metoprolol Tartrate (Lopressor) 25 mg Q12HR ORAL 03/14/20 21:00 06/12/20 20:59 03/15/20 08:56 Vancomycin HCl (Vanco pharmacy to dose) 1 ea DAILY PRN MISC Per rx protocol 03/15/20 14:30 04/14/20 14:29 Vancomycin HCl 500 mg/Sodium Chloride 110 ml @ 110 mls/hr Q24H IVPB 03/16/20 16:00 03/21/20 15:59 Vancomycin HCl 750 mg/Sodium Chloride 275 ml @ 183.333 mls/hr ONCE ONCE IVPB 03/15/20 16:00 03/15/20 17:29 Allergies: Coded Allergies: No Known Allergies (Unverified , 04/24/18) ROS Limited/Unobtainable: Yes Subjective 79 YO F with history of polycythemia vera and myelofibrosis admitted with gener alized weakness. Now severe anemia. Cover for Int Med-DR Adrian Objective Last Vital Signs Date Time Temp Pulse Resp B/P (MAP) Pulse Ox O2 Delivery O2 Flow Rate FiO2 03/15/20 15:33 97.3 63 18 109/52 (71) 96 03/15/20 09:00 Room Air 03/14/20 16:17 99 Laboratory Tests Test 03/15/20 04:00 03/15/20 06:29 Urine Color Yellow Urine Appearance Clear Urine pH 6 (4.5-8.0) Urine Specific [place] 1.015 (1.005-1.035) Urine Protein 2+ (NEGATIVE) H Urine Glucose (UA) Negative (NEGATIVE) Urine Ketones Negative (NEGATIVE) Urine Blood 1+ (NEGATIVE) H Urine Nitrite Negative (NEGATIVE) Urine Bilirubin Negative (NEGATIVE) Urine Urobilinogen 1 MG/DL (0.0-1.0) H Urine Leukocyte Esterase 1+ (NEGATIVE) H Urine RBC 2-4 /HPF (0 - 2) H Urine WBC 2-4 /HPF (0 - 2) Urine Squamous Epithelial Cells Occasional /LPF Urine Bacteria Occasional /HPF (NONE) White Blood Count 3.8 K/UL (4.8-10.8) L Red Blood Count 1.96 M/UL (4.20-5.40) L Hemoglobin 5.6 G/DL (12.0-16.0) *L Hematocrit 16.5 % (37.0-47.0) L Mean Corpuscular Volume 84 FL (80-99) Mean Corpuscular Hemoglobin 28.3 PG (27.0-31.0) Mean Corpuscular Hemoglobin Concent 33.7 G/DL (32.0-36.0) Red Cell Distribution Width 15.9 % (11.6-14.8) H Platelet Count 200 K/UL (150-450) Mean Platelet Volume 12.5 FL (6.5-10.1) H Neutrophils (%) (Auto) % (45.0-75.0) Lymphocytes (%) (Auto) % (20.0-45.0) Monocytes (%) (Auto) % (1.0-10.0) Eosinophils (%) (Auto) % (0.0-3.0) Basophils (%) (Auto) % (0.0-2.0) Differential Total Cells Counted 100 Neutrophils % (Manual) 74 % (45-75) Lymphocytes % (Manual) 22 % (20-45) Monocytes % (Manual) 4 % (1-10) Eosinophils % (Manual) 0 % (0-3) Basophils % (Manual) 0 % (0-2) Band Neutrophils 0 % (0-8) Platelet Estimate Adequate Platelet Morphology Giant Platelets 1+ Hypochromasia 1+ Anisocytosis 1+ Ovalocytes Rare Sodium Level 140 MMOL/L (136-145) Potassium Level 4.2 MMOL/L (3.5-5.1) Chloride Level 109 MMOL/L (98-107) H Carbon Dioxide Level 24 MMOL/L (21-32) Anion Gap 7 mmol/L (5-15) Blood Urea Nitrogen 26 mg/dL (7-18) H Creatinine 0.7 MG/DL (0.55-1.30) Estimat Glomerular Filtration Rate > 60 mL/min (>60) Glucose Level 91 MG/DL (74-106) Hemoglobin A1c 5.7 % (4.3-6.0) Lactic Acid Level 0.70 mmol/L (0.4-2.0) Uric Acid 5.0 MG/DL (2.6-7.2) Calcium Level 8.2 MG/DL (8.5-10.1) L Phosphorus Level 3.3 MG/DL (2.5-4.9) Magnesium Level 2.3 MG/DL (1.8-2.4) Total Bilirubin 0.7 MG/DL (0.2-1.0) Gamma Glutamyl Transpeptidase 67 U/L (5-85) Aspartate Amino Transf (AST/SGOT) 16 U/L (15-37) Alanine Aminotransferase (ALT/SGPT) 17 U/L (12-78) Alkaline Phosphatase 105 U/L (46-116) Troponin I 0.002 ng/mL (0.000-0.056) C-Reactive Protein, Quantitative 9.3 mg/dL (0.00-0.90) H Pro-B-Type Natriuretic Peptide 5122 pg/mL (0-125) H Total Protein 6.3 G/DL (6.4-8.2) L Albumin 2.6 G/DL (3.4-5.0) L Globulin 3.7 g/dL Albumin/Globulin Ratio 0.7 (1.0-2.7) L Triglycerides Level 94 MG/DL (30-150) Cholesterol Level 109 MG/DL (< 200) LDL Cholesterol 16 mg/dL (<100) HDL Cholesterol 33 MG/DL (40-60) L Cholesterol/HDL Ratio 3.3 (3.3-4.4) Thyroid Stimulating Hormone (TSH) 4.167 uiU/mL (0.358-3.740) Digoxin Level 0.9 NG/ML (0.9-2.0) Microbiology Date/Time Source Procedure Growth Status 03/14/20 11:58 Blood Blood Culture - Preliminary NO GROWTH AFTER 24 HOURS Resulted 03/14/20 11:30 Blood Blood Culture - Preliminary Resulted Intake and Output 03/14/20 03/15/20 19:00 07:00 Intake Total 2120 ml 150 ml Output Total 200 ml 1200 ml Balance 1920 ml -1050 ml Intake Oral 120 ml 150 ml IV Total 2000 ml Output Urine Total 200 ml 1200 ml # Bowel Movements 1 1 Objective PHYSICAL EXAMINATION: GENERAL: Patient is well-developed, well-nourished, ill-appearing female who is nonverbal. HEENT: Eyes pupils are equal and responsive to light and accommodation. Extraocular movements are intact. NECK: Supple. No lymphadenopathy. CHEST: Lungs are clear to auscultation bilaterally without wheezes or rales. CARDIOVASCULAR: Regular rhythm and rate. S1 and S2 are normal without murmurs, rubs, or gallops. ABDOMEN: Soft, nontender, and nondistended. Positive bowel sounds. No evidence of hepatosplenomegaly. Currently, no rebound or guarding noted. EXTREMITIES: Negative for clubbing, cyanosis, or edema. RECTAL: Not performed. GENITAL: Not performed. NEUROLOGIC: Cranial nerves II through XII grossly intact without focal deficits. Motor strength is 5/5 bilaterally. Deep tendon reflexes are 2+ plantar. Assessment/Plan Assessment/Plan ASSESSMENT: This is an 79-year-old female. 1. Severe anemia. 2. Generalized weakness. 3. Atrial fibrillation. 4. Polycythemia vera. 5. Myelofibrosis. 6. JAK2 mutation. 7. Myelodysplasia. 8. Cerebrovascular disease. 9. Obstructive sleep apnea. 10. Chronic obstructive pulmonary disease. 11. Coronary artery disease. 12. Congestive heart failure. 13. Sick sinus syndrome. TREATMENT: 1. Severe anemia. S/P transfusion 3 units of packed RBCs. Severe anemia is probably secondary to myelofibrosis secondary to polycythemia vera. 2. Atrial fibrillation/sick sinus syndrome. Patient is status post pacemaker implantation. A Cardiology consultation has been obtained with Dr. River Freitas. Follow recommendation of Cardiology. 3. Polycythemia vera/myelofibrosis/JAK2 mutation/myelodysplasia. 4. Cerebrovascular disease, status post cerebrovascular accident. 5. Obstructive sleep apnea. 6. Chronic obstructive pulmonary disease. 7. Coronary artery disease. 8. Congestive heart failure. Roshan Edwards MD Mar 15, 2020 17:29
--- NOTE | 2020-03-15 17:37 | NUR ---
NURSE NOTES:WOUND CARE NOTES:Pt presented on admission with multiple Pressure Injuries. Sacral DTPI (L)8cm x (W)8.5cm.Base of Pressure injury is indurated, maroon and tender when minimally palpated. DTPI L trochanter (L)10cm x (W)12cm. Base of pressure injury is maroon with surrounding non-blanchable erythema.Pt complained of tenderness when affected area minimally palpated. R Heel is boggy with non-blanchable erythema. L Heel is soft but easily blanchable . Tx.Plan. Apply Moisture Barrier Paste to Sacrum. Cover with Optifoam drsg. Change every 3 days and prn. Apply Cavilon Skin Barrier to R and L Trochanter. Cover each trochanter with Optifoam drsg. Change every 7 days and prn. Apply Cavilon Skin Barrier to both heels. Cover each heel with Optifoam drsg. Change every 7 days and prn. Reposition at least every 2hours or as tolerated. Off-load heels with Pillow.
--- NOTE | 2020-03-15 17:58 | NUR ---
NURSE NOTES: 2nd unit PRBC consumed, no adverse reactions noted.
--- NOTE | 2020-03-15 19:15 | NUR ---
NURSE NOTES: Receive a report from IRA Foster. Round is made. Pt is asleep without acute distress. No respiratory distress noted. Denies pain. JOE mattress is placed for being bed bound and skin issues on sacrum. Yellow urine is patent via valdez catheter. On ATB treatment via right wrist. Afebrile. Call light within reach. Will continue to monitor.
--- NOTE | 2020-03-15 19:51 | NUR ---
NURSE HAND-OFF REPORT: Important Events on Shift:transfused 2 units PRBC Patient Status: alert Diet: reg Pending Orders: Pending Results/Labs: Pending MD notification: Latest Vital Signs: Temperature 97.3 , Pulse 63 , B/P 109 /52 , Respiratory Rate 18 , O2 SAT 96 , Room Air, O2 Flow Rate . Vital Sign Comment: EKG Rhythm: SR with 1st AVB Rhythm change?: Y Notified?: Y Eddie Freitas MD Response: Message left await call Latest Yepez Fall Score: 20 Fall Risk: Low Risk Safety Measures: Call light Within Reach, Bed Alarm Zone 2, Side Rails Side Rails x2, Bed position Low and Locked. Fall Precautions: Yellow Socks Yellow Gown Patient Fall Education Report given to Go RN.
[2020-03-15 20:00] VITALS: BP 122/64
--- NOTE | 2020-03-15 21:00 | NUR ---
NURSE NOTES: Pt did not eat dinner and offer but refuses to have. Pt looks weak. Will continue to monitor.
[2020-03-16] VITALS: BP 133/56
--- NOTE | 2020-03-16 02:24 | Cardiology Report ---
APPROVED REPORT EKG Measurement Heart [id number] [id number] <Conclusion> Atrial-paced rhythm with occasional AV dual-paced complexes and premature supraventricular complexes Cannot rule out Anterior infarct, age undetermined Abnormal ECG
[2020-03-16 04:00] VITALS: BP 125/66
--- NOTE | 2020-03-16 06:15 | NUR ---
NURSE NOTES: Got informed from parking lot laborer that pt refused to get blood withdraw at this time. Will follow up for blood work.
[2020-03-16] MEDS: Levothyroxine 25mcg tab ORAL SCH ×2 (06:22→06:30)
--- NOTE | 2020-03-16 06:36 | NUR ---
NURSE HAND-OFF REPORT: Important Events on Shift:refusal taking medication and draw blood. Patient Status: [] Diet: [regular] Pending Orders: [] Pending Results/Labs:[] Pending MD notification:[] Latest Vital Signs: Temperature 99.3 , Pulse 62 , B/P 125 /66 , Respiratory Rate 18 , O2 SAT 97 , Room Air, O2 Flow Rate . Vital Sign Comment: [] EKG Rhythm: SR with 1st AVB Rhythm change?: N MD Notified?: Y -Dr Zena JOHNSON Response: Message left await call Latest Yepez Fall Score: 45 Fall Risk: High Risk Safety Measures: Call light Within Reach, Bed Alarm Zone 1, Side Rails Side Rails x2, Bed position Low and Locked. Fall Precautions: Yellow Socks Yellow Gown Patient Fall Education
--- NOTE | 2020-03-16 07:20 | NUR ---
NURSE NOTES: Given report to IRA Minaya. Round is made. Will be followed up blood work.
--- NOTE | 2020-03-16 07:22 | NUR ---
NURSE NOTES: Received report from Gho/RN, Observed patient asleep, Lying semi-garcia's, Resting comfortably. On room air, No acute distress/SOB noted. IV on left FA and right wrist patent and intact. Bed in low position and locked, Call light within reach. Encouraged to use call light when needed. Will continue plan of care.
[2020-03-16 08:00] VITALS: BP 121/61
[2020-03-16] MEDS: Amiodarone 200mg tab ORAL SCH ×2 (09:00→09:28)
[2020-03-16] MEDS: Digoxin 0.125mg tab ORAL SCH ×2 (09:00→09:29)
[2020-03-16] MEDS: Heparin 5000 units/ml inj SUBQ SCH ×2 (09:27→21:04)
--- NOTE | 2020-03-16 09:59 | NUR ---
NURSE NOTES: Patient refused all her morning medications except heparin and Lab draw x2.
[2020-03-16 12:00] VITALS: BP 117/62
--- NOTE | 2020-03-16 13:04 | Surgery Progress Note ---
Surgery Progress Note Subjective Additional Comments no acute events states she feels well no complaints eating okay Objective Last 24 Hour Vital Signs Date Time Temp Pulse Resp B/P (MAP) Pulse Ox O2 Delivery O2 Flow Rate FiO2 03/16/20 12:00 98.8 72 20 117/62 (80) 93 03/16/20 09:00 Room Air 03/16/20 09:00 69 121/61 03/16/20 09:00 69 03/16/20 08:00 72 03/16/20 08:00 98.2 69 20 121/61 (81) 96 03/16/20 04:00 61 03/16/20 04:00 99.3 62 18 125/66 (85) 97 03/16/20 00:00 60 03/16/20 00:00 98.4 68 18 133/56 (81) 96 03/15/20 21:00 Room Air 03/15/20 20:48 63 122/64 03/15/20 20:00 98.3 63 18 122/64 (83) 96 03/15/20 20:00 63 03/15/20 16:00 63 03/15/20 15:33 97.3 63 18 109/52 (71) 96 03/15/20 13:36 97.7 I&O Intake and Output 03/15/20 03/16/20 19:00 07:00 Intake Total 360 ml 1700 ml Output Total 1200 ml 2800 ml Balance -840 ml -1100 ml Intake Oral 360 ml Other 1700 ml Output Urine Total 1200 ml 1200 ml Other 1600 ml # Bowel Movements 1 Dressing: saturated Cardiovascular: RSR Respiratory: decreased breath sounds Abdomen: soft, non-tender, present bowel sounds Extremities: no tenderness, no cyanosis Plan Problems: (1) Altered mental state (2) Signs and symptoms of anemia (3) Hypotension (4) Proteinuria (5) Generalized weakness (6) Protein-calorie malnutrition, severe Assessment & Plan: Pt presented on admission with multiple Pressure Injuries. Sacral DTPI (L)8cm x (W)8.5cm.Base of Pressure injury is indurated, maroon and tender when minimally palpated. DTPI L trochanter (L)10cm x (W)12cm. Base of pressure injury is maroon with surrounding non-blanchable erythema.Pt complained of tenderness when affected area minimally palpated. R Heel is boggy with non-blanchable erythema. L Heel is soft but easily blanchable . Tx.Plan. Apply Moisture Barrier Paste to Sacrum. Cover with Optifoam drsg. Change every 3 days and prn. Apply Cavilon Skin Barrier to R and L Trochanter. Cover each trochanter with Optifoam drsg. Change every 7 days and prn. Apply Cavilon Skin Barrier to both heels. Cover each heel with Optifoam drsg. Change every 7 days and prn. Reposition at least every 2hours or as tolerated. Off-load heels with Pillow. bmi 17 now alb low needs optimization breaking down dti noted DAILY ESTIMATED NEEDS: Needs based on underweight, cardiac/ 50kg 30-35 kcals/kg 8832-4717 total kcals 1.25-1.5 g protein/kg 63-75 g total protein 25-30 mL/kg 6472-5413 total fluid mLs NUTRITION DIAGNOSIS: Increased kcal/prot needs R/T underweight status as evidenced by pt @ 89% IBW w/ BMI of 18.5. CURRENT DIET:REGULAR PO DIET RECOMMENDATIONS: Regular/ texture as tolerated ADDITIONAL RECOMMENDATIONS: 1) Standing wt or calibrated bedscale wt for accurate CBW 2) Ensure Enlive BID w/ variable intake (350kcal/20g prot in 1 bottle) Add snacks to trays TID 3) BG monitoring 4) On lasix, closely monitor lytes, replete as needed (7) Abnormal LFTs (8) Severe anemia Assessment & Plan: severe anemia. hx of bleeding held anticoagulation since prior right hemothorax s/p evacuation and vats transfusing prbc coags noted ddx includes possible GI hemorrhage. possible blood disorder protonix prior imaging reviewed as below abnormal lft's likely heme breakdown products thank you will follow with recs Gallbladder demonstrates a gallstone. This also reported on same day CT. Sonographic Camacho's sign is negative. Common bile duct measures 5 mm in diameter. No intrahepatic biliary ductal dilatation. Liver demonstrates normal echogenicity, no focal abnormality. Portal vein and hepatic veins are patent. Pancreas is unremarkable. The spleen demonstrates a complex upper pole cyst that measures 2.7 cm in diameter. The spleen is borderline enlarged. There are bilateral pleural effusions Left kidney measures 10.2 cm in length. Right kidney measures 9.2 cm length. Both kidneys demonstrate normal echogenicity. There is no hydronephrosis. No focal abnormality . Non-aneurysmal abdominal aorta . Impression: Cholelithiasis. Negative for dilated bile ducts 2.7 cm complex upper pole splenic cyst, also reported on prior imaging studies. Bilateral pleural effusions Chest: The lungs demonstrate a mosaic perfusion pattern, which is more striking than that seen previously. Some atelectasis and consolidation is seen involving both lower lobes. This appears similar on the right, slightly more extensive on the left. There is a moderate-sized right pleural effusion which appears similar to the previous study. There is a small left pleural effusion which is new since the previous study. Previous exam demonstrated a 1.5 cm opacity in the inferior right azygoesophageal recess. This is not evident currently although could be obscured by surrounding atelectatic lung. The heart is enlarged. There is a left chest pacemaker again demonstrated. No pericardial effusion. No mediastinal or hilar mass or adenopathy. Right lower pole thyroid calcification is again demonstrated. No axillary or chest wall mass or adenopathy. There are fairly profound degenerative changes of the bilateral shoulders. There is evidence of interim healing of previously demonstrated right rib fractures, nearly but not completely healed as some fracture lines persist. There are degenerative changes of the thoracic spine noted. Abdomen pelvis: What is probably a normal appendix is demonstrated. There is extensive colonic diverticulosis. No evidence of diverticulitis. The rectum is mildly distended, mostly with gas with some stool as well. No small bowel distention or small bowel wall thickening. Numerous surgical clips are seen in the retroperitoneum and left side of the pelvis. The stomach and duodenum are unremarkable. The gallbladder contains a gallstone. No biliary ductal dilatation. The liver is mildly enlarged. The pancreas is unremarkable. The spleen is enlarged, measuring 14 cm long axis dimension. It demonstrates a complex upper pole cyst, also previously demonstrated the adrenals and kidneys are unremarkable. There is a retroaortic left renal vein incidentally noted. The uterus is absent.. The bladder is unremarkable. The bones demonstrate degenerative spondylosis changes. IMPRESSION: Cardiomegaly Unchanged moderate right pleural effusion, since June 2019. New small left pleural effusion Bilateral mosaic perfusion pattern, probably on the basis of pulmonary edema Bilateral basilar compressive atelectasis and possible consolidation Interim healing of previously demonstrated right rib fractures Previously demonstrated right azygoesophageal recess lesion is no longer evident, may have resolved or may be obscured by surrounding lung parenchyma. 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
--- NOTE | 2020-03-16 13:08 | Internal Med Progress Note ---
Subjective Date of Service: Mar 16, 2020 Physician Name GraceRoshan Attending Physician Antonio Adrian MD Current Medications Medications (Trade) Dose Ordered Sig/Escobar Route PRN Reason Start Time Stop Time Status Last Admin Dose Admin Acetaminophen (Tylenol) 500 mg Q6H PRN ORAL Mild Pain (Pain Scale 1-3) 03/14/20 17:00 04/13/20 16:59 Acetaminophen (Tylenol) 650 mg Q6H PRN ORAL Temp >100.5 03/15/20 13:00 04/14/20 12:59 03/15/20 13:06 Amiodarone HCl (Cordarone) 200 mg DAILY ORAL 03/15/20 09:00 06/13/20 08:59 03/15/20 08:56 Digoxin (Lanoxin) 0.125 mg DAILY ORAL 03/15/20 09:00 06/13/20 08:59 03/15/20 08:55 Furosemide (Lasix) 20 mg DAILY ORAL 03/15/20 09:00 04/14/20 08:59 03/15/20 08:56 Gabapentin (Neurontin) 300 mg THREE TIMES A DAY ORAL 03/15/20 09:00 04/14/20 08:59 03/15/20 18:03 Heparin Sodium (Porcine) (Heparin 5000 units/ml) 5,000 units EVERY 12 HOURS SUBQ 03/14/20 21:00 04/28/20 20:59 03/16/20 09:27 Levothyroxine Sodium (Synthroid) 25 mcg DAILY@0630 ORAL 03/15/20 06:30 04/14/20 06:29 03/15/20 05:37 Metoprolol Tartrate (Lopressor) 25 mg Q12HR ORAL 03/14/20 21:00 06/12/20 20:59 03/15/20 20:48 Vancomycin HCl (Vanco pharmacy to dose) 1 ea DAILY PRN MISC Per rx protocol 03/15/20 14:30 04/14/20 14:29 Vancomycin HCl 500 mg/Sodium Chloride 110 ml @ 110 mls/hr Q24H IVPB 03/16/20 16:00 03/21/20 15:59 Allergies: Coded Allergies: No Known Allergies (Unverified , 04/24/18) ROS Limited/Unobtainable: Yes Subjective 79 YO F with history of polycythemia vera and myelofibrosis admitted with generalized weakness. Now severe anemia. Cover for Int Med-DR Adrian Objective Last Vital Signs Date Time Temp Pulse Resp B/P (MAP) Pulse Ox O2 Delivery O2 Flow Rate FiO2 03/16/20 12:00 98.8 72 20 117/62 (80) 93 03/16/20 09:00 Room Air 03/14/20 16:17 99 Microbiology Date/Time Source Procedure Growth Status 03/14/20 11:58 Blood Blood Culture - Preliminary NO GROWTH AFTER 24 HOURS Resulted 03/14/20 11:30 Blood Blood Culture - Preliminary Resulted Intake and Output 03/15/20 03/16/20 19:00 07:00 Intake Total 360 ml 1700 ml Output Total 1200 ml 2800 ml Balance -840 ml -1100 ml Intake Oral 360 ml Other 1700 ml Output Urine Total 1200 ml 1200 ml Other 1600 ml # Bowel Movements 1 Objective PHYSICAL EXAMINATION: GENERAL: Patient is well-developed, well-nourished, ill-appearing female who is nonverbal. HEENT: Eyes pupils are equal and responsive to light and accommodation. Extraocular movements are intact. NECK: Supple. No lymphadenopathy. CHEST: Lungs are clear to auscultation bilaterally without wheezes or rales. CARDIOVASCULAR: Regular rhythm and rate. S1 and S2 are normal without murmurs, rubs, or gallops. ABDOMEN: Soft, nontender, and nondistended. Positive bowel sounds. No evidence of hepatosplenomegaly. Currently, no rebound or guarding noted. EXTREMITIES: Negative for clubbing, cyanosis, or edema. RECTAL: Not performed. GENITAL: Not performed. NEUROLOGIC: Cranial nerves II through XII grossly intact without focal deficits. Motor strength is 5/5 bilaterally. Deep tendon reflexes are 2+ plantar. Assessment/Plan Assessment/Plan ASSESSMENT: This is an 79-year-old female. 1. Severe anemia. 2. Generalized weakness. 3. Atrial fibrillation. 4. Polycythemia vera. 5. Myelofibrosis. 6. JAK2 mutation. 7. Myelodysplasia. 8. Cerebrovascular disease. 9. Obstructive sleep apnea. 10. Chronic obstructive pulmonary disease. 11. Coronary artery disease. 12. Congestive heart failure. 13. Sick sinus syndrome. TREATMENT: 1. Severe anemia. S/P transfusion 3 units of packed RBCs. Severe anemia is probably secondary to myelofibrosis secondary to polycythemia vera. 2. Atrial fibrillation/sick sinus syndrome. Patient is status post pacemaker implantation. A Cardiology consultation has been obtained with Dr. River Freitas. Follow recommendation of Cardiology. 3. Polycythemia vera/myelofibrosis/JAK2 mutation/myelodysplasia. 4. Cerebrovascular disease, status post cerebrovascular accident. 5. Obstructive sleep apnea. 6. Chronic obstructive pulmonary disease. 7. Coronary artery disease. 8. Congestive heart failure. Roshan Edwards MD Mar 16, 2020 13:08
--- NOTE | 2020-03-16 13:59 | Nephrology Progress Note ---
Assessment/Plan Problem List: (1) Anemia (2) Paroxysmal A-fib (3) Pacemaker (4) Hypotension (5) Proteinuria Assessment Symptomatic anemia Hypotension Proteinuria, hypoalbuminemia Encephalopathy Plan March 16: No labs drawn today. Will check can panel tomorrow. Continue per consultants. March 15: Labs reviewed. Stable from renal standpoint of view. Continues to be anemic. Transfusion medical cost consultant Keep the blood pressure and heart rate in check Per orders Subjective ROS Limited/Unobtainable: No Constitutional: Reports: malaise Objective Objective Last 24 Hour Vital Signs Date Time Temp Pulse Resp B/P (MAP) Pulse Ox O2 Delivery O2 Flow Rate FiO2 03/16/20 12:00 98.8 72 20 117/62 (80) 93 03/16/20 09:00 Room Air 03/16/20 09:00 69 121/61 03/16/20 09:00 69 03/16/20 08:00 72 03/16/20 08:00 98.2 69 20 121/61 (81) 96 03/16/20 04:00 61 03/16/20 04:00 99.3 62 18 125/66 (85) 97 03/16/20 00:00 60 03/16/20 00:00 98.4 68 18 133/56 (81) 96 03/15/20 21:00 Room Air 03/15/20 20:48 63 122/64 03/15/20 20:00 98.3 63 18 122/64 (83) 96 03/15/20 20:00 63 03/15/20 16:00 63 03/15/20 15:33 97.3 63 18 109/52 (71) 96 Intake and Output 03/15/20 03/16/20 19:00 07:00 Intake Total 360 ml 1700 ml Output Total 1200 ml 2800 ml Balance -840 ml -1100 ml Intake Oral 360 ml Other 1700 ml Output Urine Total 1200 ml 1200 ml Other 1600 ml # Bowel Movements 1 Height (Feet): 5 Height (Inches): 2.00 Weight (Pounds): 93 General Appearance: no apparent distress Cardiovascular: normal rate Respiratory/Chest: decreased breath sounds Abdomen: soft Objective No change Sudhakar Griggs MD Mar 16, 2020 13:59
--- NOTE | 2020-03-16 14:00 | Cardiac Electrophysiology PN ---
Assessment/Plan Assessment/Plan 1. Hypertension. On Lopressor 25 po bid 2. Status post [employer] pacer in 2010 and generator change by me in 2019. 3. Paroxysmal atrial fibrillation with rapid ventricular response. On digoxin, metoprolol and amiodarone. Off anticoagulation for recurrent bleeding and profound anemia. Dig level 0.9 4. Profound anemia with hemoglobin of 3 to 4. S/P 6 units of blood transfusion last admission in 01/2020 Now Hb 5 and received PRBC again. 5. History of hemothorax, status post VATS. 6. History for pulmonary hypertension. 7. Polycythemia vera. 8. Myelofibrosis. Subjective Subjective Feeling better after transfusion. Intermittently V Paced Objective Last 24 Hour Vital Signs Date Time Temp Pulse Resp B/P (MAP) Pulse Ox O2 Delivery O2 Flow Rate FiO2 03/16/20 12:00 98.8 72 20 117/62 (80) 93 03/16/20 09:00 Room Air 03/16/20 09:00 69 121/61 03/16/20 09:00 69 03/16/20 08:00 72 03/16/20 08:00 98.2 69 20 121/61 (81) 96 03/16/20 04:00 61 03/16/20 04:00 99.3 62 18 125/66 (85) 97 03/16/20 00:00 60 03/16/20 00:00 98.4 68 18 133/56 (81) 96 03/15/20 21:00 Room Air 03/15/20 20:48 63 122/64 03/15/20 20:00 98.3 63 18 122/64 (83) 96 03/15/20 20:00 63 03/15/20 16:00 63 03/15/20 15:33 97.3 63 18 109/52 (71) 96 Intake and Output 03/15/20 03/16/20 19:00 07:00 Intake Total 360 ml 1700 ml Output Total 1200 ml 2800 ml Balance -840 ml -1100 ml Intake Oral 360 ml Other 1700 ml Output Urine Total 1200 ml 1200 ml Other 1600 ml # Bowel Movements 1 Microbiology Date/Time Source Procedure Growth Status 03/14/20 11:58 Blood Blood Culture - Preliminary NO GROWTH AFTER 24 HOURS Resulted 03/14/20 11:30 Blood Blood Culture - Preliminary Resulted Objective HEAD AND NECK: Showed no JVD. LUNGS: Clear. CARDIOVASCULAR: Regular S1 and S2 with no gallop. Pacemaker in left subclavian. ABDOMEN: Soft. EXTREMITIES: No pitting edema. LABORATORY AND DIAGNOSTIC DATA: Labs show white count of 3.8, hemoglobin was 5, improved to 5.6, and platelet count was 200. Sodium is 140, potassium 4.2, BUN of 23, creatinine 0.7, and glucose of 91. Troponin is negative x2. Digoxin level is 0.9. 1. HTN. Resume the patient's metoprolol 25 mg. 2. Status post [employer] pacemaker in 2010 and generator change by [place] in 2018. The pacemaker will be interrogated for further evaluation. 3. Paroxysmal atrial fibrillation on digoxin, metoprolol, and amiodarone. Digoxin level is therapeutic, off anticoagulation for profound anemia. 4. Polycythemia vera and myelofibrosis with profound anemia with hemoglobin of 3.4 on last admission. On discharge in January, hemoglobin was up to 11, but today again hemoglobin is 5. The patient is receiving blood transfusion, followed by Hematology. 5. Status post VATS for history of hemothorax. 6. History of pulmonary hypertension. River Freitas MD Mar 16, 2020 14:00
[2020-03-16] MEDS ORDERED: TAB-A-VITE TA400 MCG PO (14:32)
[2020-03-16] MEDS ORDERED: BISACODYL5 MG ORAL (14:32)
[2020-03-16] MEDS ORDERED: OMEPRAZOLE20 M2 ORAL (14:32)
[2020-03-16] MEDS ORDERED: DOCUSATE SODIU100 MG ORAL (14:32)
[2020-03-16 16:00] VITALS: BP 111/63
[2020-03-16] MEDS: Vancomycin 500 MG in NS 110 ML IVPB SCH (16:27)
[2020-03-16] MEDS ORDERED: Tubing IV Blood Pump IV ONE (18:10)
[2020-03-16] MEDS ORDERED: NS 275ml ONE (18:10)
[2020-03-16] MEDS ORDERED: Tubing IV Secondary IV ONE (18:10)
--- NOTE | 2020-03-16 19:08 | NUR ---
NURSE HAND-OFF REPORT: Important Events on Shift:Patient refused all her po meds Patient Status: Full code Diet: Regular Pending Orders: N/A Pending Results/Labs:Refused morning labs twice Pending MD notification:N/A Latest Vital Signs: Temperature 98.4 , Pulse 72 , B/P 111 /63 , Respiratory Rate 20 , O2 SAT 93 , Room Air, O2 Flow Rate . Vital Sign Comment: stable EKG Rhythm: Sinus Rhythm Rhythm change?: N MD Notified?: Y -Dr Zena JOHNSON Response: Message left await call Latest Yepez Fall Score: 45 Fall Risk: High Risk Safety Measures: Call light Within Reach, Bed Alarm Zone 1, Side Rails Side Rails x2, Bed position Low and Locked. Fall Precautions: Yellow Socks Yellow Gown Patient Fall Education Report given to Gho/RN.
--- NOTE | 2020-03-16 19:15 | NUR ---
NURSE NOTES: Receive a report from IRA Minaya. Round is made. Asleep and does not want to get bothered. No acute distress noted. Denies pain. On JOE mattress. Dressing for DTI intact. Yellow urine is patent via valdez catheter. On ATB for blood culture results. afebrile. Call light within reach. Will continue to monitor.
[2020-03-16 20:00] VITALS: BP 122/66
--- NOTE | 2020-03-16 21:00 | NUR ---
NURSE NOTES: Pt is awake and takes her medication. Wants to talk to family members and made a phone call for them. Update family members about pt's conditions. Will continue to monitor.
[2020-03-17] VITALS: BP 123/61
[2020-03-17 03:57] VITALS: BP 129/67
[2020-03-17] MEDS: Levothyroxine 25mcg tab ORAL SCH (06:41)
--- NOTE | 2020-03-17 06:48 | NUR ---
NURSE HAND-OFF REPORT: Important Events on Shift:[Denies pain, No distress noted. No refusal of care noted. Patient Status: [stable] Diet: [cardiac diet] Pending Orders: [] Pending Results/Labs:[] Pending MD notification:[] Latest Vital Signs: Temperature 97.4 , Pulse 60 , B/P 129 /67 , Respiratory Rate 20 , O2 SAT 93 , Room Air, O2 Flow Rate . Vital Sign Comment: [] EKG Rhythm: A-Paced Rhythm change?: N Notified?: Y -Dr Zena JOHNSON Response: Message left await call Latest Yepez Fall Score: 45 Fall Risk: High Risk Safety Measures: Call light Within Reach, Bed Alarm Zone 1, Side Rails Side Rails x2, Bed position Low and Locked. Fall Precautions: Yellow Socks Yellow Gown Patient Fall Education
--- NOTE | 2020-03-17 07:13 | NUR ---
Given report to IRA Minaya. Round is made.
--- NOTE | 2020-03-17 07:16 | NUR ---
NURSE NOTES: Received report from Gho/RN, Observed patient awake, eating breakfast in bed. On room air, No acute distress/SOB noted. IV on left FA and right wrist patent and intact. On air mattress for pressure relief. Liang draining well to gravity. Bed in low position and locked, Call light within reach. Encouraged to use call light when needed. Will continue plan of care.
[2020-03-17 08:00] VITALS: BP 130/63
--- NOTE | 2020-03-17 08:09 | Surgery Progress Note ---
Surgery Progress Note Subjective Additional Comments afebrile, HD stable labs noted micro reviewed comfortable appearing no n/v Objective Last 24 Hour Vital Signs Date Time Temp Pulse Resp B/P (MAP) Pulse Ox O2 Delivery O2 Flow Rate FiO2 03/17/20 04:00 60 03/17/20 03:57 97.4 61 20 129/67 (87) 93 03/17/20 00:00 60 03/17/20 00:00 98.1 61 20 123/61 (81) 93 03/16/20 21:06 74 122/66 03/16/20 21:00 Room Air 03/16/20 20:00 99.6 74 20 122/66 (84) 93 03/16/20 20:00 71 03/16/20 16:00 98.4 69 20 111/63 (79) 93 03/16/20 16:00 72 03/16/20 12:00 70 03/16/20 12:00 98.8 72 20 117/62 (80) 93 03/16/20 09:00 Room Air 03/16/20 09:00 69 121/61 03/16/20 09:00 69 I&O Intake and Output 03/16/20 03/17/20 19:00 07:00 Intake Total 300 ml Output Total 500 ml 450 ml Balance -200 ml -450 ml Intake Oral 300 ml Output Urine Total 500 ml 450 ml # Voids 1 Dressing: dry Wound: clean Cardiovascular: RSR Respiratory: clear, decreased breath sounds Abdomen: soft, non-tender, present bowel sounds Extremities: no edema, no tenderness, no cyanosis Plan Problems: (1) Altered mental state (2) Signs and symptoms of anemia (3) Hypotension (4) Proteinuria (5) Generalized weakness (6) Protein-calorie malnutrition, severe Assessment & Plan: Pt presented on admission with multiple Pressure Injuries. Sacral DTPI (L)8cm x (W)8.5cm.Base of Pressure injury is indurated, maroon and tender when minimally palpated. DTPI L trochanter (L)10cm x (W)12cm. Base of pressure injury is maroon with surrounding non-blanchable erythema.Pt complained of tenderness when affected area minimally palpated. R Heel is boggy with non-blanchable erythema. L Heel is soft but easily blanchable . Tx.Plan. Apply Moisture Barrier Paste to Sacrum. Cover with Optifoam drsg. Change every 3 days and prn. Apply Cavilon Skin Barrier to R and L Trochanter. Cover each trochanter with Optifoam drsg. Change every 7 days and prn. Apply Cavilon Skin Barrier to both heels. Cover each heel with Optifoam drsg. Change every 7 days and prn. Reposition at least every 2hours or as tolerated. Off-load heels with Pillow. bmi 17 now alb low needs optimization breaking down dti noted DAILY ESTIMATED NEEDS: Needs based on underweight, cardiac/ 50kg 30-35 kcals/kg 9716-5445 total kcals 1.25-1.5 g protein/kg 63-75 g total protein 25-30 mL/kg 1850-9612 total fluid mLs NUTRITION DIAGNOSIS: Increased kcal/prot needs R/T underweight status as evidenced by pt @ 89% IBW w/ BMI of 18.5. CURRENT DIET:REGULAR PO DIET RECOMMENDATIONS: Regular/ texture as tolerated ADDITIONAL RECOMMENDATIONS: 1) Standing wt or calibrated bedscale wt for accurate CBW 2) Ensure Enlive BID w/ variable intake (350kcal/20g prot in 1 bottle) Add snacks to trays TID 3) BG monitoring 4) On lasix, closely monitor lytes, replete as needed (7) Abnormal LFTs (8) Severe anemia Assessment & Plan: severe anemia. hx of bleeding held anticoagulation since prior right hemothorax s/p evacuation and vats transfusing prbc coags noted ddx includes possible GI hemorrhage. possible blood disorder protonix prior imaging reviewed as below abnormal lft's likely heme breakdown products thank you will follow with recs Gallbladder demonstrates a gallstone. This also reported on same day CT. Sonographic Camacho's sign is negative. Common bile duct measures 5 mm in diameter. No intrahepatic biliary ductal dilatation. Liver demonstrates normal echogenicity, no focal abnormality. Portal vein and hepatic veins are patent. Pancreas is unremarkable. The spleen demonstrates a complex upper pole cyst that measures 2.7 cm in diameter. The spleen is borderline enlarged. There are bilateral pleural effusions Left kidney measures 10.2 cm in length. Right kidney measures 9.2 cm length. Both kidneys demonstrate normal echogenicity. There is no hydron ephrosis. No focal abnormality . Non-aneurysmal abdominal aorta . Impression: Cholelithiasis. Negative for dilated bile ducts 2.7 cm complex upper pole splenic cyst, also reported on prior imaging studies. Bilateral pleural effusions Chest: The lungs demonstrate a mosaic perfusion pattern, which is more striking than that seen previously. Some atelectasis and consolidation is seen involving both lower lobes. This appears similar on the right, slightly more extensive on the left. There is a moderate-sized right pleural effusion which appears similar to the previous study. There is a small left pleural effusion which is new since the previous study. Previous exam demonstrated a 1.5 cm opacity in the inferior right azygoesophageal recess. This is not evident currently although could be obscured by surrounding atelectatic lung. The heart is enlarged. There is a left chest pacemaker again demonstrated. No pericardial effusion. No mediastinal or hilar mass or adenopathy. Right lower pole thyroid calcification is again demonstrated. No axillary or chest wall mass or adenopathy. There are fairly profound degenerative changes of the bilateral shoulders. There is evidence of interim healing of previously demonstrated right rib fractures, nearly but not completely healed as some fracture lines persist. There are degenerative changes of the thoracic spine noted. Abdomen pelvis: What is probably a normal appendix is demonstrated. There is extensive colonic diverticulosis. No evidence of diverticulitis. The rectum is mildly distended, mostly with gas with some stool as well. No small bowel distention or small bowel wall thickening. Numerous surgical clips are seen in the retroperitoneum and left side of the pelvis. The stomach and duodenum are unremarkable. The gallbladder contains a gallstone. No biliary ductal dilatation. The liver is mildly enlarged. The pancreas is unremarkable. The spleen is enlarged, measuring 14 cm long axis dimension. It demonstrates a complex upper pole cyst, also previously demonstrated the adrenals and kidneys are unremarkable. There is a retroaortic left renal vein incidentally noted. The uterus is absent.. The bladder is unremarkable. The bones demonstrate degenerative spondylosis changes. IMPRESSION: Cardiomegaly Unchanged moderate right pleural effusion, since June 2019. New small left pleural effusion Bilateral mosaic perfusion pattern, probably on the basis of pulmonary edema Bilateral basilar compressive atelectasis and possible consolidation Interim healing of previously demonstrated right rib fractures Previously demonstrated right azygoesophageal recess lesion is no longer evident, may have resolved or may be obscured by surrounding lung parenchyma. 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
--- NOTE | 2020-03-17 09:09 | NUR ---
CASE MANAGEMENT:REVIEW 03/17/20 SI: SYMPTOMATIC ANEMIA...S/P 3 UNITS PRBC'S 97.4 61 20 129/67 93% ON RA LABS CURRENTLY PENDING IS: IV VANCOMYCIN Q24 NEURONTIN PO TID LASIX PO QD AMIODARONE PO QD DIGOXIN PO QD SYNTHROID PO QD HEPARIN SQ Q12 LOPRESSOR PO Q12 : TELEMETRY STATUS DCP; FROM HOME WITH CAREGIVER PLAN: MONITOR H/H
[2020-03-17] MEDS: Amiodarone 200mg tab ORAL SCH (09:26)
[2020-03-17] MEDS: Digoxin 0.125mg tab ORAL SCH (09:26)
[2020-03-17] MEDS: Heparin 5000 units/ml inj SUBQ SCH ×2 (09:31→21:03)
--- NOTE | 2020-03-17 10:16 | Cardiac Electrophysiology PN ---
Assessment/Plan Assessment/Plan 1. Hypertension. On Lopressor 25 po bid 2. Status post [employer] pacer in 2010 and generator change by me in 2019. 3. Paroxysmal atrial fibrillation with rapid ventricular response. On digoxin, metoprolol and amiodarone. Off anticoagulation for recurrent bleeding and profound anemia. Dig level 0.9 4. Profound anemia with hemoglobin of 3 to 4. S/P 6 units of blood transfusion last admission in 01/2020 Now Hb 5 and received 3 units of PRBC again. 5. History of hemothorax, status post VATS. 6. History for pulmonary hypertension. 7. Polycythemia vera. 8. Myelofibrosis. DW RN Subjective Subjective Feeling better after 3units of PRBC transfusion. Intermittently A Paced Refused labs and meds yesterday but agreeable today Objective Last 24 Hour Vital Signs Date Time Temp Pulse Resp B/P (MAP) Pulse Ox O2 Delivery O2 Flow Rate FiO2 03/17/20 09:26 67 130/63 03/17/20 09:26 67 03/17/20 09:00 Room Air 03/17/20 08:00 98.0 67 18 130/63 (85) 95 03/17/20 08:00 61 03/17/20 04:00 60 03/17/20 03:57 97.4 61 20 129/67 (87) 93 03/17/20 00:00 60 03/17/20 00:00 98.1 61 20 123/61 (81) 93 03/16/20 21:06 74 122/66 03/16/20 21:00 Room Air 03/16/20 20:00 99.6 74 20 122/66 (84) 93 03/16/20 20:00 71 03/16/20 16:00 98.4 69 20 111/63 (79) 93 03/16/20 16:00 72 03/16/20 12:00 70 03/16/20 12:00 98.8 72 20 117/62 (80) 93 Intake and Output 03/16/20 03/17/20 19:00 07:00 Intake Total 300 ml Output Total 500 ml 450 ml Balance -200 ml -450 ml Intake Oral 300 ml Output Urine Total 500 ml 450 ml # Voids 1 Microbiology Date/Time Source Procedure Growth Status 03/14/20 11:58 Blood Blood Culture - Preliminary NO GROWTH AFTER 48 HOURS Resulted 03/14/20 11:30 Blood Blood Culture - Preliminary Gram Positive Cocci Resulted Objective HEAD AND NECK: Showed no JVD. LUNGS: Clear. CARDIOVASCULAR: Regular S1 and S2 with no gallop. Pacemaker in left subclavian. ABDOMEN: Soft. EXTREMITIES: No pitting edema. LABORATORY AND DIAGNOSTIC DATA: Labs show white count of 3.8, hemoglobin was 5, improved to 5.6, and platelet count was 200. Sodium is 140, potassium 4.2, BUN of 23, creatinine 0.7, and glucose of 91. Troponin is negative x2. Digoxin level is 0.9. 1. HTN. Resume the patient's metoprolol 25 mg. 2. Status post [employer] pacemaker in 2010 and generator change by [place] in 2018. The pacemaker will be interrogated for further evaluation. 3. Paroxysmal atrial fibrillation on digoxin, metoprolol, and amiodarone. Digoxin level is therapeutic, off anticoagulation for profound anemia. 4. Polycythemia vera and myelofibrosis with profound anemia with hemoglobin of 3.4 on last admission. On discharge in January, hemoglobin was up to 11, but today again hemoglobin is 5. The patient is receiving blood transfusion, followed by Hematology. 5. Status post VATS for history of hemothorax. 6. History of pulmonary hypertension. River Freitas MD Mar 17, 2020 10:16
[2020-03-17 11:02] LABS: ANION GAP 6 mmol/L (5-15); BLOOD UREA NITROGEN 20 mg/dL (7-18); CALCIUM 8.3 MG/DL (8.5-10.1); CARBON DIOXIDE 25 MMOL/L (21-32); CHLORIDE 107 MMOL/L (98-107); CREATININE 0.6 MG/DL (0.55-1.30); POTASSIUM 3.8 MMOL/L (3.5-5.1); SODIUM 138 MMOL/L (136-145)
[2020-03-17 11:20] LABS: BASOPHILS % (AUTO) 8.7 % (0.0-2.0); EOSINOPHILS % (AUTO) 0.3 % (0.0-3.0); HEMATOCRIT 26.4 % (37.0-47.0); HEMOGLOBIN 8.8 G/DL (12.0-16.0); LYMPHOCYTES % (AUTO) 22.8 % (20.0-45.0); MEAN CORPUSCULAR VOLUME 86 FL (80-99); MONOCYTES % (AUTO) 4.5 % (1.0-10.0); NEUTROPHILS % (AUTO) 63.7 % (45.0-75.0); PLATELET COUNT 208 K/UL (150-450); RED BLOOD COUNT 3.07 M/UL (4.20-5.40); RED CELL DISTRIBUTION WIDTH 15.9 % (11.6-14.8)
[2020-03-17 12:00] VITALS: BP 112/63
--- NOTE | 2020-03-17 12:18 | Nephrology Progress Note ---
Assessment/Plan Problem List: (1) Anemia (2) Paroxysmal A-fib (3) Pacemaker (4) Hypotension (5) Proteinuria Assessment Symptomatic anemia Hypotension Proteinuria, hypoalbuminemia Encephalopathy Plan March 17: Labs reviewed. Renal parameters stable. Hemoglobin higher March 16: No labs drawn today. Will check can panel tomorrow. Continue per consultants. March 15: Labs reviewed. Stable from renal standpoint of view. Continues to be anemic. Transfusion nurse monitoring Keep the blood pressure and heart rate in check Per orders Subjective ROS Limited/Unobtainable: No Constitutional: Reports: malaise Objective Objective Last 24 Hour Vital Signs Date Time Temp Pulse Resp B/P (MAP) Pulse Ox O2 Delivery O2 Flow Rate FiO2 03/17/20 09:26 67 130/63 03/17/20 09:26 67 03/17/20 09:00 Room Air 03/17/20 08:00 98.0 67 18 130/63 (85) 95 03/17/20 08:00 61 03/17/20 04:00 60 03/17/20 03:57 97.4 61 20 129/67 (87) 93 03/17/20 00:00 60 03/17/20 00:00 98.1 61 20 123/61 (81) 93 03/16/20 21:06 74 122/66 03/16/20 21:00 Room Air 03/16/20 20:00 99.6 74 20 122/66 (84) 93 03/16/20 20:00 71 03/16/20 16:00 98.4 69 20 111/63 (79) 93 03/16/20 16:00 72 03/16/20 12:00 70 03/16/20 12:00 98.8 72 20 117/62 (80) 93 Intake and Output 03/16/20 03/17/20 19:00 07:00 Intake Total 300 ml Output Total 500 ml 450 ml Balance -200 ml -450 ml Intake Oral 300 ml Output Urine Total 500 ml 450 ml # Voids 1 Current Medications Medications (Trade) Dose Ordered Sig/Escobar Route PRN Reason Start Time Stop Time Status Last Admin Dose Admin Acetaminophen (Tylenol) 500 mg Q6H PRN ORAL Mild Pain (Pain Scale 1-3) 03/14/20 17:00 04/13/20 16:59 Acetaminophen (Tylenol) 650 mg Q6H PRN ORAL Temp >100.5 03/15/20 13:00 04/14/20 12:59 03/15/20 13:06 Amiodarone HCl (Cordarone) 200 mg DAILY ORAL 03/15/20 09:00 06/13/20 08:59 03/17/20 09:26 Digoxin (Lanoxin) 0.125 mg DAILY ORAL 03/15/20 09:00 06/13/20 08:59 03/17/20 09:26 Furosemide (Lasix) 20 mg DAILY ORAL 03/15/20 09:00 04/14/20 08:59 03/17/20 09:26 Gabapentin (Neurontin) 300 mg THREE TIMES A DAY ORAL 03/15/20 09:00 04/14/20 08:59 03/17/20 09:26 Heparin Sodium (Porcine) (Heparin 5000 units/ml) 5,000 units EVERY 12 HOURS SUBQ 03/14/20 21:00 04/28/20 20:59 03/17/20 09:31 Levothyroxine Sodium (Synthroid) 25 mcg DAILY@0630 ORAL 03/15/20 06:30 04/14/20 06:29 03/17/20 06:41 Metoprolol Tartrate (Lopressor) 25 mg Q12HR ORAL 03/14/20 21:00 06/12/20 20:59 03/17/20 09:26 Vancomycin HCl ([facility] pharmacy to dose) 1 ea DAILY PRN MISC Per rx protocol 03/15/20 14:30 04/14/20 14:29 Vancomycin HCl 500 mg/Sodium Chloride 110 ml @ 110 mls/hr Q24H IVPB 03/16/20 16:00 03/21/20 15:59 03/16/20 16:27 Laboratory Tests 03/17/20 10:30: White Blood Count 4.0L, Red Blood Count 3.07L, Hemoglobin 8.8L, Hematocrit 26.4L , Mean Corpuscular Volume 86, Mean Corpuscular Hemoglobin 28.8, Mean Corpuscular Hemoglobin Concent 33.5, Red Cell Distribution Width 15.9H, Platelet Count 208, Mean Platelet Volume 10.8H, Neutrophils (%) (Auto) 63.7, Lymphocytes (%) (Auto) 22.8, Monocytes (%) (Auto) 4.5, Eosinophils (%) (Auto) 0.3, Basophils (%) (Auto) 8.7H, Sodium Level 138, Potassium Level 3.8, Chloride Level 107, Carbon Dioxide Level 25, Anion Gap 6, Blood Urea Nitrogen 20H, Creatinine 0.6, Estimat Glomerular Filtration Rate > 60, Glucose Level 113H, Calcium Level 8.3L Height (Feet): 5 Height (Inches): 2.00 Weight (Pounds): 93 General Appearance: no apparent distress, lethargic Cardiovascular: normal rate Respiratory/Chest: decreased breath sounds Abdomen: soft Objective No change Sudhakar Griggs MD Mar 17, 2020 12:18
--- NOTE | 2020-03-17 13:21 | NUR ---
RD ASSESSMENT & RECOMMENDATIONS SEE CARE ACTIVITY FOR COMPLETE ASSESSMENT DAILY ESTIMATED NEEDS: Needs based on underweight, cardiac/ 50kg 30-35 kcals/kg 5973-5265 total kcals 1.25-1.5 g protein/kg 63-75 g total protein 25-30 mL/kg 7081-9265 total fluid mLs NUTRITION DIAGNOSIS: Increased kcal/prot needs R/T underweight status as evidenced by pt @ 89% IBW w/ BMI of 18.5. CURRENT DIET:REGULAR PO DIET RECOMMENDATIONS: Regular/ texture as tolerated ADDITIONAL RECOMMENDATIONS: 1) Standing wt or calibrated bedscale wt for accurate CBW 2) Ensure Enlive BID w/ variable intake (350kcal/20g prot in 1 bottle) Add snacks to trays TID 3) BG monitoring 4) On lasix, closely monitor lytes, replete as needed 5) Sacral wound eval-> DORIE BID .
[2020-03-17 16:00] VITALS: BP 122/67
[2020-03-17] MEDS: Vancomycin 500 MG in NS 110 ML IVPB SCH (16:53)
--- NOTE | 2020-03-17 17:30 | Internal Med Progress Note ---
Subjective Physician Name Antonio Adrian Attending Physician Antonio Adrian MD Current Medications Medications (Trade) Dose Ordered Sig/Escobar Route PRN Reason Start Time Stop Time Status Last Admin Dose Admin Acetaminophen (Tylenol) 500 mg Q6H PRN ORAL Mild Pain (Pain Scale 1-3) 03/14/20 17:00 04/13/20 16:59 Acetaminophen (Tylenol) 650 mg Q6H PRN ORAL Temp >100.5 03/15/20 13:00 04/14/20 12:59 03/15/20 13:06 Amiodarone HCl (Cordarone) 200 mg DAILY ORAL 03/15/20 09:00 06/13/20 08:59 03/17/20 09:26 Digoxin (Lanoxin) 0.125 mg DAILY ORAL 03/15/20 09:00 06/13/20 08:59 03/17/20 09:26 Furosemide (Lasix) 20 mg DAILY ORAL 03/15/20 09:00 04/14/20 08:59 03/17/20 09:26 Gabapentin (Neurontin) 300 mg THREE TIMES A DAY ORAL 03/15/20 09:00 04/14/20 08:59 03/17/20 17:20 Heparin Sodium (Porcine) (Heparin 5000 units/ml) 5,000 units EVERY 12 HOURS SUBQ 03/14/20 21:00 04/28/20 20:59 03/17/20 09:31 Levothyroxine Sodium (Synthroid) 25 mcg DAILY@0630 ORAL 03/15/20 06:30 04/14/20 06:29 03/17/20 06:41 Metoprolol Tartrate (Lopressor) 25 mg Q12HR ORAL 03/14/20 21:00 06/12/20 20:59 03/17/20 09:26 Vancomycin HCl ([facility] pharmacy to dose) 1 ea DAILY PRN MISC Per rx protocol 03/15/20 14:30 04/14/20 14:29 Vancomycin HCl 500 mg/Sodium Chloride 110 ml @ 110 mls/hr Q24H IVPB 03/16/20 16:00 03/21/20 15:59 03/17/20 16:53 Allergies: Coded Allergies: No Known Allergies (Unverified , 04/24/18) Subjective awake, alert, responsive, no acute distress, chronically ill appearing, poor oral intake. Hgb: 8.8 posttransfusion. Objective Last Vital Signs Date Time Temp Pulse Resp B/P (MAP) Pulse Ox O2 Delivery O2 Flow Rate FiO2 03/17/20 16:00 98.3 71 18 122/67 (85) 93 03/17/20 09:00 Room Air 03/14/20 16:17 99 Laboratory Tests Test 03/17/20 10:30 White Blood Count 4.0 K/UL (4.8-10.8) L Red Blood Count 3.07 M/UL (4.20-5.40) L Hemoglobin 8.8 G/DL (12.0-16.0) L Hematocrit 26.4 % (37.0-47.0) L Mean Corpuscular Volume 86 FL (80-99) Mean Corpuscular Hemoglobin 28.8 PG (27.0-31.0) Mean Corpuscular Hemoglobin Concent 33.5 G/DL (32.0-36.0) Red Cell Distribution Width 15.9 % (11.6-14.8) H Platelet Count 208 K/UL (150-450) Mean Platelet Volume 10.8 FL (6.5-10.1) H Neutrophils (%) (Auto) 63.7 % (45.0-75.0) Lymphocytes (%) (Auto) 22.8 % (20.0-45.0) Monocytes (%) (Auto) 4.5 % (1.0-10.0) Eosinophils (%) (Auto) 0.3 % (0.0-3.0) Basophils (%) (Auto) 8.7 % (0.0-2.0) H Sodium Level 138 MMOL/L (136-145) Potassium Level 3.8 MMOL/L (3.5-5.1) Chloride Level 107 MMOL/L (98-107) Carbon Dioxide Level 25 MMOL/L (21-32) Anion Gap 6 mmol/L (5-15) Blood Urea Nitrogen 20 mg/dL (7-18) H Creatinine 0.6 MG/DL (0.55-1.30) Estimat Glomerular Filtration Rate > 60 mL/min (>60) Glucose Level 113 MG/DL (74-106) H Calcium Level 8.3 MG/DL (8.5-10.1) L Intake and Output 03/16/20 03/17/20 19:00 07:00 Intake Total 300 ml Output Total 500 ml 450 ml Balance -200 ml -450 ml Intake Oral 300 ml Output Urine Total 500 ml 450 ml # Voids 1 Objective General: No acute distress, awake and alert HEENT: NCAT, sclera anicteric, PERRL, EOMI. Neck: Supple, no significant jugular venous distention, Lungs: Fair inspiratory effort, decreased air at the bases, no Wheeze or Rales. Heart: Irregular rate and rhythm, normal S1/S2, no murmurs. Abdomen: soft, nontender, nondistended. Normoactive bowel sounds. / Rectal: Refused and deferred. Extremities: No Cyanosis , clubbing or edema. Neuro: A&O x 3, Able to move all extremities Skin: warm, no rashes or lesions Assessment/Plan Assessment/Plan ASSESSMENT: This is an 79-year-old female. 1. Severe anemia. 2. Generalized weakness. 3. Atrial fibrillation. 4. Polycythemia vera. 5. Myelofibrosis. 6. JAK2 mutation. 7. Myelodysplasia. 8. Cerebrovascular disease. 9. Obstructive sleep apnea. 10. Chronic obstructive pulmonary disease. 11. Coronary artery disease. 12. Congestive heart failure. 13. Sick sinus syndrome. 14. Bacteremia. TREATMENT: 1. Severe anemia. S/P transfusion 3 units of packed RBCs. Severe anemia is probably secondary to myelofibrosis secondary to polycythemia vera. 2. Atrial fibrillation/sick sinus syndrome. Patient is status post pacemaker implantation. A Cardiology consultation has been obtained with Dr. River Freitas. Follow recommendation of Cardiology. 3. Polycythemia vera/myelofibrosis/JAK2 mutation/myelodysplasia. 4. Cerebrovascular disease, status post cerebrovascular accident. 5. Obstructive sleep apnea. 6. Chronic obstructive pulmonary disease. 7. Coronary artery disease. 8. Congestive heart failure. 9. Abx: Antonio Villa IV, MD Mar 17, 2020 17:30
--- NOTE | 2020-03-17 19:20 | NUR ---
NURSE NOTES: Received report from IRA Minaya. Patient AOx3, able to communicate needs. Seen resting, but easily arousable. IV sites intact and IV atb running on RW#20g. On room air, saturating well. No complaints of pain or discomfort at this time. Bed in lowest position, brakes engaged and bed alarm on. Call light placed within reach. will continue to monitor.
--- NOTE | 2020-03-17 19:22 | NUR ---
NURSE HAND-OFF REPORT: Important Events on Shift:N/A Patient Status: Full code Diet: Regular Pending Orders: N/A Pending Results/Labs:N/A Pending MD notification:N/A Latest Vital Signs: Temperature 98.3 , Pulse 60 , B/P 122 /67 , Respiratory Rate 18 , O2 SAT 93 , Room Air, O2 Flow Rate . Vital Sign Comment: Stable EKG Rhythm: A-Paced Rhythm change?: N MD Notified?: Y -Dr Zena JOHNSON Response: Message left await call Latest Yepez Fall Score: 45 Fall Risk: High Risk Safety Measures: Call light Within Reach, Bed Alarm Zone 1, Side Rails Side Rails x2, Bed position Low and Locked. Fall Precautions: Yellow Socks Yellow Gown Patient Fall Education Report given to Shanthi/IRA.
[2020-03-17 20:00] VITALS: BP 120/63
[2020-03-18] VITALS: BP 123/65
[2020-03-18 04:00] VITALS: BP 135/61
[2020-03-18] MEDS: Levothyroxine 25mcg tab ORAL SCH (05:43)
--- NOTE | 2020-03-18 07:18 | NUR ---
NURSE HAND-OFF REPORT: Important Events on Shift:[Clarify with MD the order for heparin; per Dr. Freitas's notes, he planned pt to be off anticoagulation for profound anemia] Patient Status: [full code] Diet: [regular, mechanical soft-chopped] Pending Orders: [vanco trough @ 1500] Pending Results/Labs:[] Pending MD notification:[] Latest Vital Signs: Temperature 98.6 , Pulse 78 , B/P 135 /61 , Respiratory Rate 18 , O2 SAT 99 , Room Air, O2 Flow Rate . Vital Sign Comment: [] EKG Rhythm: A-Paced Rhythm change?: N MD Notified?: Y -Dr Zena JOHNSON Response: Message left await call Latest Yepez Fall Score: 45 Fall Risk: High Risk Safety Measures: Call light Within Reach, Bed Alarm Zone 1, Side Rails Side Rails x2, Bed position Low and Locked. Fall Precautions: Yellow Socks Yellow Gown Patient Fall Education Report given to [IRA Coelho].
--- NOTE | 2020-03-18 07:48 | NUR ---
NURSE NOTES: Patient received from IRA Maki. Patient seen in bed in low fowlers position with no acute signs of distress.The patient is on room air with oxygen saturation within normal limits. The patient has a R wrist 20G that is clean patent and intact and TKO, patient also has a L FA 20G saline locked, that is clean, patent and intact. The patients bed is in lowest position, locked, side rails x3, bed alarm in zone 1, patient is on p200 mattress to prevent skin deterioration and call light within reach.
[2020-03-18 08:00] VITALS: BP 110/59
[2020-03-18] MEDS: Heparin 5000 units/ml inj SUBQ SCH ×2 (08:41→20:26)
[2020-03-18] MEDS: Digoxin 0.125mg tab ORAL SCH (08:44)
[2020-03-18] MEDS: Amiodarone 200mg tab ORAL SCH (08:46)
--- NOTE | 2020-03-18 09:14 | Nephrology Progress Note ---
Assessment/Plan Problem List: (1) Anemia (2) Paroxysmal A-fib (3) Pacemaker (4) Hypotension (5) Proteinuria Assessment Symptomatic anemia Hypotension Proteinuria, hypoalbuminemia Encephalopathy Plan March 18: Status quo. Stable from renal standpoint of view. Continue per consultants. March 17: Labs reviewed. Renal parameters stable. Hemoglobin higher March 16: No labs drawn today. Will check can panel tomorrow. Continue per consultants. March 15: Labs reviewed. Stable from renal standpoint of view. Continues to be anemic. 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 Keep the blood pressure and heart rate in check Per orders Subjective ROS Limited/Unobtainable: No Constitutional: Reports: malaise, weakness Objective Objective Last 24 Hour Vital Signs Date Time Temp Pulse Resp B/P (MAP) Pulse Ox O2 Delivery O2 Flow Rate FiO2 03/18/20 08:45 64 110/56 03/18/20 08:44 64 03/18/20 04:00 60 03/18/20 04:00 98.6 78 18 135/61 (85) 99 03/18/20 00:00 60 03/18/20 00:00 98.7 61 18 123/65 (84) 96 03/17/20 21:03 62 120/63 03/17/20 21:00 Room Air 03/17/20 20:00 62 03/17/20 20:00 98.2 61 18 120/63 (82) 96 03/17/20 16:00 98.3 71 18 122/67 (85) 93 03/17/20 16:00 60 03/17/20 12:00 61 03/17/20 12:00 97.8 62 17 112/63 (79) 95 03/17/20 09:26 67 130/63 03/17/20 09:26 67 Intake and Output 03/17/20 03/18/20 19:00 07:00 Intake Total 450 ml Output Total 1800 ml 1000 ml Balance -1800 ml -550 ml Other 450 ml Output Urine Total 1800 ml 400 ml Other 600 ml Current Medications Medications (Trade) Dose Ordered Sig/Escobar Route PRN Reason Start Time Stop Time Status Last Admin Dose Admin Acetaminophen (Tylenol) 500 mg Q6H PRN ORAL Mild Pain (Pain Scale 1-3) 03/14/20 17:00 04/13/20 16:59 Acetaminophen (Tylenol) 650 mg Q6H PRN ORAL Temp >100.5 03/15/20 13:00 04/14/20 12:59 03/15/20 13:06 Amiodarone HCl (Cordarone) 200 mg DAILY ORAL 03/15/20 09:00 06/13/20 08:59 03/18/20 08:46 Digoxin (Lanoxin) 0.125 mg DAILY ORAL 03/15/20 09:00 06/13/20 08:59 03/18/20 08:44 Furosemide (Lasix) 20 mg DAILY ORAL 03/15/20 09:00 04/14/20 08:59 03/18/20 08:46 Gabapentin (Neurontin) 300 mg THREE TIMES A DAY ORAL 03/15/20 09:00 04/14/20 08:59 03/18/20 08:45 Heparin Sodium (Porcine) (Heparin 5000 units/ml) 5,000 units EVERY 12 HOURS SUBQ 03/14/20 21:00 04/28/20 20:59 03/17/20 21:03 Levothyroxine Sodium (Synthroid) 25 mcg DAILY@0630 ORAL 03/15/20 06:30 04/14/20 06:29 03/18/20 05:43 Metoprolol Tartrate (Lopressor) 25 mg Q12HR ORAL 03/14/20 21:00 06/12/20 20:59 03/18/20 08:45 Vancomycin HCl ([facility] pharmacy to dose) 1 ea DAILY PRN MISC Per rx protocol 03/15/20 14:30 04/14/20 14:29 Vancomycin HCl 500 mg/Sodium Chloride 110 ml @ 110 mls/hr Q24H IVPB 03/16/20 16:00 03/21/20 15:59 03/17/20 16:53 Laboratory Tests 03/17/20 10:30: White Blood Count 4.0L, Red Blood Count 3.07L, Hemoglobin 8.8L, Hematocrit 26.4L , Mean Corpuscular Volume 86, Mean Corpuscular Hemoglobin 28.8, Mean Corpuscular Hemoglobin Concent 33.5, Red Cell Distribution Width 15.9H, Platelet Count 208, Mean Platelet Volume 10.8H, Neutrophils (%) (Auto) 63.7, Lymphocytes (%) (Auto) 22.8, Monocytes (%) (Auto) 4.5, Eosinophils (%) (Auto) 0.3, Basophils (%) (Auto) 8.7H, Sodium Level 138, Potassium Level 3.8, Chloride Level 107, Carbon Dioxide Level 25, Anion Gap 6, Blood Urea Nitrogen 20H, Creatinine 0.6, Estimat Glomerular Filtration Rate > 60, Glucose Level 113H, Calcium Level 8.3L Height (Feet): 5 Height (Inches): 2.00 Weight (Pounds): 93 General Appearance: no apparent distress Cardiovascular: normal rate Respiratory/Chest: decreased breath sounds Abdomen: distended Objective No change Sudhakar Griggs MD Mar 18, 2020 09:14
[2020-03-18 12:00] VITALS: BP 116/63
--- NOTE | 2020-03-18 13:21 | Cardiac Electrophysiology PN ---
Assessment/Plan Assessment/Plan 1. Hypertension. On Lopressor 25 po bid 2. Status post [employer] pacer in 2010 and generator change by me in 2019. 3. Paroxysmal atrial fibrillation with rapid ventricular response. On digoxin, metoprolol and amiodarone. Off anticoagulation for recurrent bleeding and profound anemia. Dig level 0.9 4. Profound anemia with hemoglobin of 3 to 4. S/P 6 units of blood transfusion last admission in 01/2020 Now Hb 5 and received 3 units of PRBC again. Hb 8.7 5. History of hemothorax, status post VATS. 6. Pulmonary hypertension. 7. Myelofibrosis. 8. Positive blood Cx on Vancomycin DW RN Subjective Subjective Feeling better after 3units of PRBC transfusion. A Paced RN at bedside. Blood Cx now is positive for gram + and started on Vanco Objective Last 24 Hour Vital Signs Date Time Temp Pulse Resp B/P (MAP) Pulse Ox O2 Delivery O2 Flow Rate FiO2 03/18/20 12:00 62 03/18/20 12:00 98.0 66 18 116/63 (80) 93 03/18/20 09:00 Room Air 03/18/20 08:45 64 110/56 03/18/20 08:44 64 03/18/20 08:00 60 03/18/20 08:00 98.1 64 17 110/59 (76) 93 03/18/20 04:00 60 03/18/20 04:00 98.6 78 18 135/61 (85) 99 03/18/20 00:00 60 03/18/20 00:00 98.7 61 18 123/65 (84) 96 03/17/20 21:03 62 120/63 03/17/20 21:00 Room Air 03/17/20 20:00 62 03/17/20 20:00 98.2 61 18 120/63 (82) 96 03/17/20 16:00 98.3 71 18 122/67 (85) 93 03/17/20 16:00 60 Intake and Output 03/17/20 03/18/20 19:00 07:00 Intake Total 450 ml Output Total 1800 ml 1000 ml Balance -1800 ml -550 ml Other 450 ml Output Urine Total 1800 ml 400 ml Other 600 ml Objective HEAD AND NECK: Showed no JVD. LUNGS: Clear. CARDIOVASCULAR: Regular S1 and S2 with no gallop. Pacemaker in left subclavian. ABDOMEN: Soft. EXTREMITIES: No pitting edema. LABORATORY AND DIAGNOSTIC DATA: Labs show white count of 3.8, hemoglobin was 5, improved to 5.6, and platelet count was 200. Sodium is 140, potassium 4.2, BUN of 23, creatinine 0.7, and glucose of 91. Troponin is negative x2. Digoxin level is 0.9. 1. HTN. Resume the patient's metoprolol 25 mg. 2. Status post [employer] pacemaker in 2010 and generator change by [place] in 2018. The pacemaker will be interrogated for further evaluation. 3. Paroxysmal atrial fibrillation on digoxin, metoprolol, and amiodarone. Digoxin level is therapeutic, off anticoagulation for profound anemia. 4. Polycythemia vera and myelofibrosis with profound anemia with hemoglobin of 3.4 on last admission. On discharge in January, hemoglobin was up to 11, but today again hemoglobin is 5. The patient is receiving blood transfusion, followed by Hematology. 5. Status post VATS for history of hemothorax. 6. History of pulmonary hypertension. River Freitas MD Mar 18, 2020 13:21
--- NOTE | 2020-03-18 15:31 | NUR ---
CASE MANAGEMENT:REVIEW 03/18/20 SI: SYMPTOMATIC ANEMIA...S/P 3 UNITS PRBC'S 98.0 66 18 116/63 93% ON RA IS: IV VANCOMYCIN Q24 NEURONTIN PO TID LASIX PO QD AMIODARONE PO QD DIGOXIN PO QD SYNTHROID PO QD HEPARIN SQ Q12 LOPRESSOR PO Q12 : TELEMETRY STATUS DCP; FROM HOME WITH CAREGIVER
[2020-03-18 16:00] VITALS: BP 109/56
[2020-03-18] MEDS ORDERED: Vancomycin 500 MG in NS 110 ML IVPB SCH (16:00)
[2020-03-18] MEDS: Vancomycin 500 MG in NS 110 ML IVPB SCH (16:07)
--- NOTE | 2020-03-18 18:47 | Internal Med Progress Note ---
Subjective Physician Name Antonio Adrian Attending Physician Antonio Adrian MD Current Medications Medications (Trade) Dose Ordered Sig/Escobar Route PRN Reason Start Time Stop Time Status Last Admin Dose Admin Acetaminophen (Tylenol) 500 mg Q6H PRN ORAL Mild Pain (Pain Scale 1-3) 03/14/20 17:00 04/13/20 16:59 Acetaminophen (Tylenol) 650 mg Q6H PRN ORAL Temp >100.5 03/15/20 13:00 04/14/20 12:59 03/15/20 13:06 Amiodarone HCl (Cordarone) 200 mg DAILY ORAL 03/15/20 09:00 06/13/20 08:59 03/18/20 08:46 Digoxin (Lanoxin) 0.125 mg DAILY ORAL 03/15/20 09:00 06/13/20 08:59 03/18/20 08:44 Furosemide (Lasix) 20 mg DAILY ORAL 03/15/20 09:00 04/14/20 08:59 03/18/20 08:46 Gabapentin (Neurontin) 300 mg THREE TIMES A DAY ORAL 03/15/20 09:00 04/14/20 08:59 03/18/20 17:07 Heparin Sodium (Porcine) (Heparin 5000 units/ml) 5,000 units EVERY 12 HOURS SUBQ 03/14/20 21:00 04/28/20 20:59 03/17/20 21:03 Levothyroxine Sodium (Synthroid) 25 mcg DAILY@0630 ORAL 03/15/20 06:30 04/14/20 06:29 03/18/20 05:43 Metoprolol Tartrate (Lopressor) 25 mg Q12HR ORAL 03/14/20 21:00 06/12/20 20:59 03/18/20 08:45 Vancomycin HCl ([facility] pharmacy to dose) 1 ea DAILY PRN MISC Per rx protocol 03/15/20 14:30 04/14/20 14:29 Vancomycin HCl 500 mg/Sodium Chloride 110 ml @ 110 mls/hr Q12HR@0400,1600 IVPB 03/18/20 16:00 03/23/20 15:59 03/18/20 16:29 Allergies: Coded Allergies: No Known Allergies (Unverified , 04/24/18) Subjective awake, alert, responsive, no acute distress, chronically ill appearing, poor oral intake. No Labs today. Objective Last Vital Signs Date Time Temp Pulse Resp B/P (MAP) Pulse Ox O2 Delivery O2 Flow Rate FiO2 03/18/20 16:00 62 03/18/20 16:00 98.0 18 109/56 (73) 94 03/18/20 09:00 Room Air 03/14/20 16:17 99 Laboratory Tests Test 03/18/20 15:30 Vancomycin Level Trough 7.8 ug/mL (5.0-12.0) Intake and Output 03/17/20 03/18/20 19:00 07:00 Intake Total 450 ml Output Total 1800 ml 1000 ml Balance -1800 ml -550 ml Other 450 ml Output Urine Total 1800 ml 400 ml Other 600 ml Objective General: No acute distress, awake and alert HEENT: NCAT, sclera anicteric, PERRL, EOMI. Neck: Supple, no significant jugular venous distention, Lungs: Fair inspiratory effort, decreased air at the bases, no Wheeze or Rales. Heart: Irregular rate and rhythm, normal S1/S2, no murmurs. Abdomen: soft, nontender, nondistended. Normoactive bowel sounds. / Rectal: Refused and deferred. Extremities: No Cyanosis , clubbing or edema. Neuro: A&O x 3, Able to move all extremities Skin: warm, no rashes or lesions Assessment/Plan Assessment/Plan ASSESSMENT: This is an 79-year-old female. 1. Severe anemia. 2. Generalized weakness. 3. Atrial fibrillation. 4. Polycythemia vera. 5. Myelofibrosis. 6. JAK2 mutation. 7. Myelodysplasia. 8. Cerebrovascular disease. 9. Obstructive sleep apnea. 10. Chronic obstructive pulmonary disease. 11. Coronary artery disease. 12. Congestive heart failure. 13. Sick sinus syndrome. 14. staph epidermidis Bacteremia. TREATMENT: 1. Severe anemia. S/P transfusion 3 units of packed RBCs. Severe anemia is probably secondary to myelofibrosis secondary to polycythemia vera. 2. Atrial fibrillation/sick sinus syndrome. Patient is status post pacemaker implantation. A Cardiology consultation has been obtained with Dr. River Freitas. Follow recommendation of Cardiology. 3. Polycythemia vera/myelofibrosis/JAK2 mutation/myelodysplasia. 4. Cerebrovascular disease, status post cerebrovascular accident. 5. Obstructive sleep apnea. 6. Chronic obstructive pulmonary disease. 7. Coronary artery disease. 8. Congestive heart failure. 9. Abx: switch Vanco IV to Levaquin IV discharge planning home with home health. PT mobility evaluation. Antonio Adrian MD Mar 18, 2020 18:46
--- NOTE | 2020-03-18 19:05 | NUR ---
NURSE HAND-OFF REPORT: Important Events on Shift:[IV ABX, Vanco trough] Patient Status: [Full code] Diet: [Regular, mechanical chopped] Pending Orders: [N/A] Pending Results/Labs:[N/A] Pending MD notification:[N/A] Latest Vital Signs: Temperature 98.0 , Pulse 62 , B/P 109 /56 , Respiratory Rate 18 , O2 SAT 94 , Room Air, O2 Flow Rate . Vital Sign Comment: [] EKG Rhythm: A-Paced Rhythm change?: Y Notified?: N -Dr Zena JOHNSON Response: Message left await call Latest Yepez Fall Score: 45 Fall Risk: High Risk Safety Measures: Call light Within Reach, Bed Alarm Zone 1, Side Rails Side Rails x2, Bed position Low and Locked. Fall Precautions: Yellow Socks Yellow Gown Patient Fall Education Report given to [IRA Rivero].
--- NOTE | 2020-03-18 19:16 | NUR ---
NURSE NOTES: Received patient from IRA Coelho. Patient AOx3, able to verbalize needs. IV site intact and flushed; no IVf at this time. On room air, saturating well. Bed in lowest position, brakes engaged and bed alarm on. Call light placed within reach. Will continue to monitor.
[2020-03-18 20:00] VITALS: BP 100/61
[2020-03-19] VITALS: BP 109/58
[2020-03-19 04:00] VITALS: BP 112/66
[2020-03-19 05:14] LABS: BASOPHILS % (AUTO) 8.2 % (0.0-2.0); EOSINOPHILS % (AUTO) 0.6 % (0.0-3.0); HEMATOCRIT 28.3 % (37.0-47.0); HEMOGLOBIN 9.2 G/DL (12.0-16.0); LYMPHOCYTES % (AUTO) 27.9 % (20.0-45.0); MEAN CORPUSCULAR VOLUME 87 FL (80-99); MONOCYTES % (AUTO) 5.8 % (1.0-10.0); NEUTROPHILS % (AUTO) 57.5 % (45.0-75.0); PLATELET COUNT 214 K/UL (150-450); RED BLOOD COUNT 3.24 M/UL (4.20-5.40); RED CELL DISTRIBUTION WIDTH 16.1 % (11.6-14.8); WHITE BLOOD COUNT 4.3 K/UL (4.8-10.8)
[2020-03-19 05:36] LABS: ALANINE AMINOTRANSFERASE 12 U/L (12-78); ALBUMIN 2.4 G/DL (3.4-5.0); ALBUMIN/GLOBULIN RATIO 0.6 (1.0-2.7); ALKALINE PHOSPHATASE 110 U/L (46-116); ANION GAP 4 mmol/L (5-15); ASPARTATE AMINO TRANSFERASE 12 U/L (15-37); BILIRUBIN,TOTAL 0.6 MG/DL (0.2-1.0); BLOOD UREA NITROGEN 21 mg/dL (7-18); CALCIUM 8.4 MG/DL (8.5-10.1); CARBON DIOXIDE 30 MMOL/L (21-32); CHLORIDE 106 MMOL/L (98-107); CREATININE 0.7 MG/DL (0.55-1.30); PHOSPHORUS 3.4 MG/DL (2.5-4.9); POTASSIUM 3.9 MMOL/L (3.5-5.1); SODIUM 140 MMOL/L (136-145)
[2020-03-19] MEDS: Levothyroxine 25mcg tab ORAL SCH (05:37)
--- NOTE | 2020-03-19 07:04 | NUR ---
NURSE HAND-OFF REPORT: Important Events on Shift:[AM labs today; Hgb 9.2; PT eval] Patient Status: [full code] Diet: [reg, mech-chopped] Pending Orders: [PT eval] Pending Results/Labs:[] Pending MD notification:[] Latest Vital Signs: Temperature 98.1 , Pulse 65 , B/P 112 /66 , Respiratory Rate 18 , O2 SAT 99 , Room Air, O2 Flow Rate . Vital Sign Comment: [] EKG Rhythm: SR, A-pacing Rhythm change?: N MD Notified?: N -Dr Zena JOHNSON Response: Message left await call Latest Yepez Fall Score: 45 Fall Risk: High Risk Safety Measures: Call light Within Reach, Bed Alarm Zone 1, Side Rails Side Rails x2, Bed position Low and Locked. Fall Precautions: Yellow Socks Yellow Gown Patient Fall Education Report given to [IRA Coelho].
--- NOTE | 2020-03-19 07:48 | NUR ---
NURSE NOTES: Patient seen in bed in semifowlers position eating breakfast with no acute signs of distress and no complaints of pain 0/10. The patient is on room air with oxygen saturation within normal limits. The patient has a L FA 20G IV that is saline locked, clean patent and intact. The patient has a 16F valdez that is patent and draining with no acute signs of infection. The patients bed is in lowest position, locked, side rails x1, bed alarm in zone 1 and call light within reach.
[2020-03-19 08:00] VITALS: BP 94/52
[2020-03-19] MEDS: Digoxin 0.125mg tab ORAL SCH (08:35)
[2020-03-19] MEDS: Amiodarone 200mg tab ORAL SCH (08:36)
[2020-03-19] MEDS: Heparin 5000 units/ml inj SUBQ SCH ×2 (08:39→21:13)
[2020-03-19 12:00] VITALS: BP 99/62
--- NOTE | 2020-03-19 14:04 | NUR ---
CASE MANAGEMENT:REVIEW 03/19/20 SI: SYMPTOMATIC ANEMIA VS: T 98 HR 72 RR 18 B/P 99/62 SATS 93% ON RA LABS: WBC 4.3 BUN 21 CA 8.4 AST 12 IS: IV VANCOMYCIN Q24 NEURONTIN PO TID LASIX PO QD AMIODARONE PO QD DIGOXIN PO QD SYNTHROID PO QD HEPARIN SQ Q12 LOPRESSOR PO Q12 : TELEMETRY STATUS DCP; FROM HOME WITH CAREGIVER
--- NOTE | 2020-03-19 15:05 | Surgery Progress Note ---
Surgery Progress Note Subjective Additional Comments afebrile, HD stable comfortable no complaints no n/v Objective Last 24 Hour Vital Signs Date Time Temp Pulse Resp B/P (MAP) Pulse Ox O2 Delivery O2 Flow Rate FiO2 03/19/20 12:00 98.0 72 18 99/62 (74) 93 03/19/20 12:00 77 03/19/20 09:00 Room Air 03/19/20 08:37 63 94/52 03/19/20 08:35 63 03/19/20 08:00 97.6 68 18 94/52 (66) 98 03/19/20 08:00 65 03/19/20 04:00 65 03/19/20 04:00 98.1 66 18 112/66 (81) 99 03/19/20 00:00 65 03/19/20 00:00 98.5 75 18 109/58 (75) 96 03/18/20 21:00 Room Air 03/18/20 20:47 64 100/61 03/18/20 20:00 64 03/18/20 20:00 98.1 63 18 100/61 (74) 97 03/18/20 16:00 62 03/18/20 16:00 98.0 63 18 109/56 (73) 94 I&O Intake and Output 03/18/20 03/19/20 19:00 07:00 Intake Total 500 ml Output Total 850 ml 400 ml Balance -350 ml -400 ml Intake Oral 500 ml Output Urine Total 850 ml Other 400 ml # Bowel Movements 1 Cardiovascular: RSR Respiratory: decreased breath sounds Abdomen: soft, flat, non-tender, present bowel sounds Extremities: no tenderness, no cyanosis Laboratory Tests Test 03/18/20 15:30 03/19/20 03:50 Vancomycin Level Trough 7.8 ug/mL (5.0-12.0) White Blood Count 4.3 K/UL (4.8-10.8) L Red Blood Count 3.24 M/UL (4.20-5.40) L Hemoglobin 9.2 G/DL (12.0-16.0) L Hematocrit 28.3 % (37.0-47.0) L Mean Corpuscular Volume 87 FL (80-99) Mean Corpuscular Hemoglobin 28.3 PG (27.0-31.0) Mean Corpuscular Hemoglobin Concent 32.5 G/DL (32.0-36.0) Red Cell Distribution Width 16.1 % (11.6-14.8) H Platelet Count 214 K/UL (150-450) Mean Platelet Volume 12.4 FL (6.5-10.1) H Neutrophils (%) (Auto) 57.5 % (45.0-75.0) Lymphocytes (%) (Auto) 27.9 % (20.0-45.0) Monocytes (%) (Auto) 5.8 % (1.0-10.0) Eosinophils (%) (Auto) 0.6 % (0.0-3.0) Basophils (%) (Auto) 8.2 % (0.0-2.0) H Sodium Level 140 MMOL/L (136-145) Potassium Level 3.9 MMOL/L (3.5-5.1) Chloride Level 106 MMOL/L (98-107) Carbon Dioxide Level 30 MMOL/L (21-32) Anion Gap 4 mmol/L (5-15) L Blood Urea Nitrogen 21 mg/dL (7-18) H Creatinine 0.7 MG/DL (0.55-1.30) Estimat Glomerular Filtration Rate > 60 mL/min (>60) Glucose Level 84 MG/DL (74-106) Calcium Level 8.4 MG/DL (8.5-10.1) L Phosphorus Level 3.4 MG/DL (2.5-4.9) Magnesium Level 1.9 MG/DL (1.8-2.4) Total Bilirubin 0.6 MG/DL (0.2-1.0) Aspartate Amino Transf (AST/SGOT) 12 U/L (15-37) L Alanine Aminotransferase (ALT/SGPT) 12 U/L (12-78) Alkaline Phosphatase 110 U/L (46-116) Troponin I 0.002 ng/mL (0.000-0.056) Total Protein 6.2 G/DL (6.4-8.2) L Albumin 2.4 G/DL (3.4-5.0) L Globulin 3.8 g/dL Albumin/Globulin Ratio 0.6 (1.0-2.7) L Plan Problems: (1) Altered mental state (2) Signs and symptoms of anemia (3) Hypotension (4) Proteinuria (5) Generalized weakness (6) Protein-calorie malnutrition, severe Assessment & Plan: Pt presented on admission with multiple Pressure Injuries. Sacral DTPI (L)8cm x (W)8.5cm.Base of Pressure injury is indurated, maroon and tender when minimally palpated. DTPI L trochanter (L)10cm x (W)12cm. Base of pressure injury is maroon with surrounding non-blanchable erythema.Pt complained of tenderness when affected area minimally palpated. R Heel is boggy with non-blanchable erythema. L Heel is soft but easily blanchable . Tx.Plan. Apply Moisture Barrier Paste to Sacrum. Cover with Optifoam drsg. Change every 3 days and prn. Apply Cavilon Skin Barrier to R and L Trochanter. Cover each trochanter with Optifoam drsg. Change every 7 days and prn. Apply Cavilon Skin Barrier to both heels. Cover each heel with Optifoam drsg. Change every 7 days and prn. Reposition at least every 2hours or as tolerated. Off-load heels with Pillow. bmi 17 now alb low needs optimization breaking down dti noted DAILY ESTIMATED NEEDS: Needs based on underweight, cardiac/ 50kg 30-35 kcals/kg 0780-1486 total kcals 1.25-1.5 g protein/kg 63-75 g total protein 25-30 mL/kg 6580-4326 total fluid mLs NUTRITION DIAGNOSIS: Increased kcal/prot needs R/T underweight status as evidenced by pt @ 89% IBW w/ BMI of 18.5. CURRENT DIET:REGULAR PO DIET RECOMMENDATIONS: Regular/ texture as tolerated ADDITIONAL RECOMMENDATIONS: 1) Standing wt or calibrated bedscale wt for accurate CBW 2) Ensure Enlive BID w/ variable intake (350kcal/20g prot in 1 bottle) Add snacks to trays TID 3) BG monitoring 4) On lasix, closely monitor lytes, replete as needed (7) Abnormal LFTs (8) Severe anemia Assessment & Plan: severe anemia. hx of bleeding held anticoagulation since prior right hemothorax s/p evacuation and vats transfusing prbc coags noted ddx includes possible GI hemorrhage. possible blood disorder protonix prior imaging reviewed as below abnormal lft's likely heme breakdown products thank you will follow with recs Gallbladder demonstrates a gallstone. This also reported on same day CT. Sonographic Camacho's sign is negative. Common bile duct measures 5 mm in diameter. No intrahepatic biliary ductal dilatation. Liver demonstrates normal echogenic ity, no focal abnormality. Portal vein and hepatic veins are patent. Pancreas is unremarkable. The spleen demonstrates a complex upper pole cyst that measures 2.7 cm in diameter. The spleen is borderline enlarged. There are bilateral pleural effusions Left kidney measures 10.2 cm in length. Right kidney measures 9.2 cm length. Both kidneys demonstrate normal echogenicity. There is no hydronephrosis. No focal abnormality . Non-aneurysmal abdominal aorta . Impression: Cholelithiasis. Negative for dilated bile ducts 2.7 cm complex upper pole splenic cyst, also reported on prior imaging studies. Bilateral pleural effusions Chest: The lungs demonstrate a mosaic perfusion pattern, which is more striking than that seen previously. Some atelectasis and consolidation is seen involving both lower lobes. This appears similar on the right, slightly more extensive on the left. There is a moderate-sized right pleural effusion which appears similar to the previous study. There is a small left pleural effusion which is new since the previous study. Previous exam demonstrated a 1.5 cm opacity in the inferior right azygoesophageal recess. This is not evident currently although could be obscured by surrounding atelectatic lung. The heart is enlarged. There is a left chest pacemaker again demonstrated. No pericardial effusion. No mediastinal or hilar mass or adenopathy. Right lower p ole thyroid calcification is again demonstrated. No axillary or chest wall mass or adenopathy. There are fairly profound degenerative changes of the bilateral shoulders. There is evidence of interim healing of previously demonstrated right rib fractures, nearly but not completely healed as some fracture lines persist. There are degenerative changes of the thoracic spine noted. Abdomen pelvis: What is probably a normal appendix is demonstrated. There is extensive colonic diverticulosis. No evidence of diverticulitis. The rectum is mildly distended, mostly with gas with some stool as well. No small bowel distention or small bowel wall thickening. Numerous surgical clips are seen in the retroperitoneum and left side of the pelvis. The stomach and duodenum are unremarkable. The gallbladder contains a gallstone. No biliary ductal dilatation. The liver is mildly enlarged. The pancreas is unremarkable. The spleen is enlarged, measuring 14 cm long axis dimension. It demonstrates a complex upper pole cyst, also pr eviously demonstrated the adrenals and kidneys are unremarkable. There is a retroaortic left renal vein incidentally noted. The uterus is absent.. The bladder is unremarkable. The bones demonstrate degenerative spondylosis changes. IMPRESSION: Cardiomegaly Unchanged moderate right pleural effusion, since June 2019. New small left pleural effusion Bilateral mosaic perfusion pattern, probably on the basis of pulmonary edema Bilateral basilar compressive atelectasis and possible consolidation Interim healing of previously demonstrated right rib fractures Previously demonstrated right azygoesophageal recess lesion is no longer evident, may have resolved or may be obscured by surrounding lung parenchyma. 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
--- NOTE | 2020-03-19 15:59 | NUR ---
PT Note PT yolanda completed, treatment initiated. Patient presents with muscle weakness and poor activity tolerance. Patient can benefit from PT services to increase her muscle strength and balance to improve her functional mobility. Addendum: 03/19/20 at 1601 by EM BEY PT Amended: Links added.
[2020-03-19 16:00] VITALS: BP 95/58
--- NOTE | 2020-03-19 17:51 | Cardiac Electrophysiology PN ---
Assessment/Plan Assessment/Plan 1. Hypertension. On Lopressor 25 po bid 2. Status post [employer] pacer in 2010 and generator change by me in 2019. 3. Paroxysmal atrial fibrillation with rapid ventricular response. On digoxin, metoprolol and amiodarone. Off anticoagulation for recurrent bleeding and profound anemia. Dig level 0.9 4. Profound anemia with hemoglobin of 3 to 4. S/P 6 units of blood transfusion last admission in 01/2020 Now Hb 5 and received 3 units of PRBC again. Hb 8.7 5. History of hemothorax, status post VATS. 6. Pulmonary hypertension. 7. Myelofibrosis. 8. Positive blood Cx on Vancomycin DW RN Subjective Subjective Feeling better after 3units of PRBC transfusion. A Paced RN at bedside. Blood Cx is positive for gram + and is on Vanco Objective Last 24 Hour Vital Signs Date Time Temp Pulse Resp B/P (MAP) Pulse Ox O2 Delivery O2 Flow Rate FiO2 03/19/20 16:00 97.9 73 18 95/58 (70) 96 03/19/20 16:00 71 03/19/20 12:00 98.0 72 18 99/62 (74) 93 03/19/20 12:00 77 03/19/20 09:00 Room Air 03/19/20 08:37 63 94/52 03/19/20 08:35 63 03/19/20 08:00 97.6 68 18 94/52 (66) 98 03/19/20 08:00 65 03/19/20 04:00 65 03/19/20 04:00 98.1 66 18 112/66 (81) 99 03/19/20 00:00 65 03/19/20 00:00 98.5 75 18 109/58 (75) 96 03/18/20 21:00 Room Air 03/18/20 20:47 64 100/61 03/18/20 20:00 64 03/18/20 20:00 98.1 63 18 100/61 (74) 97 Intake and Output 03/18/20 03/19/20 19:00 07:00 Intake Total 500 ml Output Total 850 ml 400 ml Balance -350 ml -400 ml Intake Oral 500 ml Output Urine Total 850 ml Other 400 ml # Bowel Movements 1 Laboratory Tests Test 03/19/20 03:50 White Blood Count 4.3 K/UL (4.8-10.8) L Red Blood Count 3.24 M/UL (4.20-5.40) L Hemoglobin 9.2 G/DL (12.0-16.0) L Hematocrit 28.3 % (37.0-47.0) L Mean Corpuscular Volume 87 FL (80-99) Mean Corpuscular Hemoglobin 28.3 PG (27.0-31.0) Mean Corpuscular Hemoglobin Concent 32.5 G/DL (32.0-36.0) Red Cell Distribution Width 16.1 % (11.6-14.8) H Platelet Count 214 K/UL (150-450) Mean Platelet Volume 12.4 FL (6.5-10.1) H Neutrophils (%) (Auto) 57.5 % (45.0-75.0) Lymphocytes (%) (Auto) 27.9 % (20.0-45.0) Monocytes (%) (Auto) 5.8 % (1.0-10.0) Eosinophils (%) (Auto) 0.6 % (0.0-3.0) Basophils (%) (Auto) 8.2 % (0.0-2.0) H Sodium Level 140 MMOL/L (136-145) Potassium Level 3.9 MMOL/L (3.5-5.1) Chloride Level 106 MMOL/L (98-107) Carbon Dioxide Level 30 MMOL/L (21-32) Anion Gap 4 mmol/L (5-15) L Blood Urea Nitrogen 21 mg/dL (7-18) H Creatinine 0.7 MG/DL (0.55-1.30) Estimat Glomerular Filtration Rate > 60 mL/min (>60) Glucose Level 84 MG/DL (74-106) Calcium Level 8.4 MG/DL (8.5-10.1) L Phosphorus Level 3.4 MG/DL (2.5-4.9) Magnesium Level 1.9 MG/DL (1.8-2.4) Total Bilirubin 0.6 MG/DL (0.2-1.0) Aspartate Amino Transf (AST/SGOT) 12 U/L (15-37) L Alanine Aminotransferase (ALT/SGPT) 12 U/L (12-78) Alkaline Phosphatase 110 U/L (46-116) Troponin I 0.002 ng/mL (0.000-0.056) Total Protein 6.2 G/DL (6.4-8.2) L Albumin 2.4 G/DL (3.4-5.0) L Globulin 3.8 g/dL Albumin/Globulin Ratio 0.6 (1.0-2.7) L Objective HEAD AND NECK: Showed no JVD. LUNGS: Clear. CARDIOVASCULAR: Regular S1 and S2 with no gallop. Pacemaker in left subclavian. ABDOMEN: Soft. EXTREMITIES: No pitting edema. LABORATORY AND DIAGNOSTIC DATA: Labs show white count of 3.8, hemoglobin was 5, improved to 5.6, and platelet count was 200. Sodium is 140, potassium 4.2, BUN of 23, creatinine 0.7, and glucose of 91. Troponin is negative x2. Digoxin level is 0.9. 1. HTN. Resume the patient's metoprolol 25 mg. 2. Status post [employer] pacemaker in 2010 and generator change by ut in 2018. The pacemaker will be interrogated for further evaluation. 3. Paroxysmal atrial fibrillation on digoxin, metoprolol, and amiodarone. Digoxin level is therapeutic, off anticoagulation for profound anemia. 4. Polycythemia vera and myelofibrosis with profound anemia with hemoglobin of 3.4 on last admission. On discharge in January, hemoglobin was up to 11, but today again hemoglobin is 5. The patient is receiving blood transfusion, followed by Hematology. 5. Status post VATS for history of hemothorax. 6. History of pulmonary hypertension. River Freitas MD Mar 19, 2020 17:51
--- NOTE | 2020-03-19 18:31 | Nephrology Progress Note ---
Assessment/Plan Problem List: (1) Anemia (2) Paroxysmal A-fib (3) Pacemaker (4) Hypotension (5) Proteinuria Assessment Symptomatic anemia Hypotension Proteinuria, hypoalbuminemia Encephalopathy Plan March 19: Status quo. Labs reviewed. Renal parameters stable. Continue per consultants. March 18: Status quo. Stable from renal standpoint of view. Continue per consultants. March 17: Labs reviewed. Renal parameters stable. Hemoglobin higher March 16: No labs drawn today. Will check can panel tomorrow. Continue per consultants. March 15: Labs reviewed. Stable from renal standpoint of view. Continues to be anemic. Transfusion teletypesetter monitor Keep the blood pressure and heart rate in check Per orders Subjective ROS Limited/Unobtainable: No Objective Objective Last 24 Hour Vital Signs Date Time Temp Pulse Resp B/P (MAP) Pulse Ox O2 Delivery O2 Flow Rate FiO2 03/19/20 16:00 97.9 73 18 95/58 (70) 96 03/19/20 16:00 71 03/19/20 12:00 98.0 72 18 99/62 (74) 93 03/19/20 12:00 77 03/19/20 09:00 Room Air 03/19/20 08:37 63 94/52 03/19/20 08:35 63 03/19/20 08:00 97.6 68 18 94/52 (66) 98 03/19/20 08:00 65 03/19/20 04:00 65 03/19/20 04:00 98.1 66 18 112/66 (81) 99 03/19/20 00:00 65 03/19/20 00:00 98.5 75 18 109/58 (75) 96 03/18/20 21:00 Room Air 03/18/20 20:47 64 100/61 03/18/20 20:00 64 03/18/20 20:00 98.1 63 18 100/61 (74) 97 Intake and Output 03/18/20 03/19/20 19:00 07:00 Intake Total 500 ml Output Total 850 ml 400 ml Balance -350 ml -400 ml Intake Oral 500 ml Output Urine Total 850 ml Other 400 ml # Bowel Movements 1 Current Medications Medications (Trade) Dose Ordered Sig/Escobar Route PRN Reason Start Time Stop Time Status Last Admin Dose Admin Acetaminophen (Tylenol) 500 mg Q6H PRN ORAL Mild Pain (Pain Scale 1-3) 03/14/20 17:00 04/13/20 16:59 Acetaminophen (Tylenol) 650 mg Q6H PRN ORAL Temp >100.5 03/15/20 13:00 04/14/20 12:59 03/15/20 13:06 Amiodarone HCl (Cordarone) 200 mg DAILY ORAL 03/15/20 09:00 06/13/20 08:59 03/19/20 08:36 Digoxin (Lanoxin) 0.125 mg DAILY ORAL 03/15/20 09:00 06/13/20 08:59 03/19/20 08:35 Furosemide (Lasix) 20 mg DAILY ORAL 03/15/20 09:00 04/14/20 08:59 03/19/20 08:36 Gabapentin (Neurontin) 300 mg THREE TIMES A DAY ORAL 03/15/20 09:00 04/14/20 08:59 03/19/20 17:00 Heparin Sodium (Porcine) (Heparin 5000 units/ml) 5,000 units EVERY 12 HOURS SUBQ 03/14/20 21:00 04/28/20 20:59 03/19/20 08:39 Levofloxacin 50 ml @ 50 mls/hr Q24H IVPB 03/18/20 21:00 03/25/20 20:59 03/18/20 20:43 Levothyroxine Sodium (Synthroid) 25 mcg DAILY@0630 ORAL 03/15/20 06:30 04/14/20 06:29 03/19/20 05:37 Metoprolol Tartrate (Lopressor) 25 mg Q12HR ORAL 03/14/20 21:00 06/12/20 20:59 03/18/20 08:45 Laboratory Tests 03/19/20 03:50: White Blood Count 4.3L, Red Blood Count 3.24L, Hemoglobin 9.2L, Hematocrit 28.3L , Mean Corpuscular Volume 87, Mean Corpuscular Hemoglobin 28.3, Mean Corpuscular Hemoglobin Concent 32.5, Red Cell Distribution Width 16.1H, Platelet Count 214, Mean Platelet Volume 12.4H, Neutrophils (%) (Auto) 57.5, Lymphocytes (%) (Auto) 27.9, Monocytes (%) (Auto) 5.8, Eosinophils (%) (Auto) 0.6, Basophils (%) (Auto) 8.2H, Sodium Level 140, Potassium Level 3.9, Chloride Level 106, Carbon Dioxide Level 30, Anion Gap 4L, Blood Urea Nitrogen 21H, Creatinine 0.7, Estimat Glomerular Filtration Rate > 60, Glucose Level 84, Calcium Level 8.4L, Phosphor us Level 3.4, Magnesium Level 1.9, Total Bilirubin 0.6, Aspartate Amino Transf (AST/SGOT) 12L, Alanine Aminotransferase (ALT/SGPT) 12, Alkaline Phosphatase 110, Troponin I 0.002, Total Protein 6.2L, Albumin 2.4L, Globulin 3.8, Albumin/Globulin Ratio 0.6L Height (Feet): 5 Height (Inches): 2.00 Weight (Pounds): 93 General Appearance: no apparent distress Cardiovascular: normal rate Respiratory/Chest: decreased breath sounds Abdomen: soft Objective No change Sudhakar Griggs MD Mar 19, 2020 18:31
--- NOTE | 2020-03-19 18:58 | NUR ---
NURSE HAND-OFF REPORT: Important Events on Shift:[A-Paced rhythm, BM] Patient Status: [Full code] Diet: [Regular mechanical shopped] Pending Orders: [N/A] Pending Results/Labs:[N/A] Pending MD notification:[N/A] Latest Vital Signs: Temperature 97.9 , Pulse 71 , B/P 95 /58 , Respiratory Rate 18 , O2 SAT 96 , Room Air, O2 Flow Rate . Vital Sign Comment: [] EKG Rhythm: A-Pacing Rhythm change?: N Notified?: N -Dr Zena JOHNSON Response: Message left await call Latest Yepez Fall Score: 45 Fall Risk: High Risk Safety Measures: Call light Within Reach, Bed Alarm Zone 1, Side Rails Side Rails x2, Bed position Low and Locked. Fall Precautions: Yellow Socks Yellow Gown Patient Fall Education Report given to [IRA BERGMAN].
--- NOTE | 2020-03-19 19:07 | Internal Med Progress Note ---
Subjective Date of Service: Mar 19, 2020 Physician Name Roshan Edwards Attending Physician Antonio Adrian MD Current Medications Medications (Trade) Dose Ordered Sig/Escobar Route PRN Reason Start Time Stop Time Status Last Admin Dose Admin Acetaminophen (Tylenol) 500 mg Q6H PRN ORAL Mild Pain (Pain Scale 1-3) 03/14/20 17:00 04/13/20 16:59 Acetaminophen (Tylenol) 650 mg Q6H PRN ORAL Temp >100.5 03/15/20 13:00 04/14/20 12:59 03/15/20 13:06 Amiodarone HCl (Cordarone) 200 mg DAILY ORAL 03/15/20 09:00 06/13/20 08:59 03/19/20 08:36 Digoxin (Lanoxin) 0.125 mg DAILY ORAL 03/15/20 09:00 06/13/20 08:59 03/19/20 08:35 Furosemide (Lasix) 20 mg DAILY ORAL 03/15/20 09:00 04/14/20 08:59 03/19/20 08:36 Gabapentin (Neurontin) 300 mg THREE TIMES A DAY ORAL 03/15/20 09:00 04/14/20 08:59 03/19/20 17:00 Heparin Sodium (Porcine) (Heparin 5000 units/ml) 5,000 units EVERY 12 HOURS SUBQ 03/14/20 21:00 04/28/20 20:59 03/19/20 08:39 Levofloxacin 50 ml @ 50 mls/hr Q24H IVPB 03/18/20 21:00 03/25/20 20:59 03/18/20 20:43 Levothyroxine Sodium (Synthroid) 25 mcg DAILY@0630 ORAL 03/15/20 06:30 04/14/20 06:29 03/19/20 05:37 Metoprolol Tartrate (Lopressor) 25 mg Q12HR ORAL 03/14/20 21:00 06/12/20 20:59 03/18/20 08:45 Allergies: Coded Allergies: No Known Allergies (Unverified , 04/24/18) ROS Limited/Unobtainable: Yes Subjective 79 YO F with history of polycythemia vera and myelofibrosis admitted with generalized weakness. Now severe anemia. Cover for Int Med-DR Adrian Objective Last Vital Signs Date Time Temp Pulse Resp B/P (MAP) Pulse Ox O2 Delivery O2 Flow Rate FiO2 03/19/20 16:00 97.9 73 18 95/58 (70) 96 03/19/20 09:00 Room Air 03/14/20 16:17 99 Laboratory Tests Test 03/19/20 03:50 White Blood Count 4.3 K/UL (4.8-10.8) L Red Blood Count 3.24 M/UL (4.20-5.40) L Hemoglobin 9.2 G/DL (12.0-16.0) L Hematocrit 28.3 % (37.0-47.0) L Mean Corpuscular Volume 87 FL (80-99) Mean Corpuscular Hemoglobin 28.3 PG (27.0-31.0) Mean Corpuscular Hemoglobin Concent 32.5 G/DL (32.0-36.0) Red Cell Distribution Width 16.1 % (11.6-14.8) H Platelet Count 214 K/UL (150-450) Mean Platelet Volume 12.4 FL (6.5-10.1) H Neutrophils (%) (Auto) 57.5 % (45.0-75.0) Lymphocytes (%) (Auto) 27.9 % (20.0-45.0) Monocytes (%) (Auto) 5.8 % (1.0-10.0) Eosinophils (%) (Auto) 0.6 % (0.0-3.0) Basophils (%) (Auto) 8.2 % (0.0-2.0) H Sodium Level 140 MMOL/L (136-145) Potassium Level 3.9 MMOL/L (3.5-5.1) Chloride Level 106 MMOL/L (98-107) Carbon Dioxide Level 30 MMOL/L (21-32) Anion Gap 4 mmol/L (5-15) L Blood Urea Nitrogen 21 mg/dL (7-18) H Creatinine 0.7 MG/DL (0.55-1.30) Estimat Glomerular Filtration Rate > 60 mL/min (>60) Glucose Level 84 MG/DL (74-106) Calcium Level 8.4 MG/DL (8.5-10.1) L Phosphorus Level 3.4 MG/DL (2.5-4.9) Magnesium Level 1.9 MG/DL (1.8-2.4) Total Bilirubin 0.6 MG/DL (0.2-1.0) Aspartate Amino Transf (AST/SGOT) 12 U/L (15-37) L Alanine Aminotransferase (ALT/SGPT) 12 U/L (12-78) Alkaline Phosphatase 110 U/L (46-116) Troponin I 0.002 ng/mL (0.000-0.056) Total Protein 6.2 G/DL (6.4-8.2) L Albumin 2.4 G/DL (3.4-5.0) L Globulin 3.8 g/dL Albumin/Globulin Ratio 0.6 (1.0-2.7) L Intake and Output 0 03/18/20 03/19/20 19:00 07:00 Intake Total 500 ml Output Total 850 ml 400 ml Balance -350 ml -400 ml Intake Oral 500 ml Output Urine Total 850 ml Other 400 ml # Bowel Movements 1 Objective PHYSICAL EXAMINATION: GENERAL: Patient is well-developed, well-nourished, ill-appearing female who is nonverbal. HEENT: Eyes pupils are equal and responsive to light and accommodation. Extraocular movements are intact. NECK: Supple. No lymphadenopathy. CHEST: Lungs are clear to auscultation bilaterally without wheezes or rales. CARDIOVASCULAR: Regular rhythm and rate. S1 and S2 are normal without murmurs, rubs, or gallops. ABDOMEN: Soft, nontender, and nondistended. Positive bowel sounds. No evidence of hepatosplenomegaly. Currently, no rebound or guarding noted. EXTREMITIES: Negative for clubbing, cyanosis, or edema. RECTAL: Not performed. GENITAL: Not performed. NEUROLOGIC: Cranial nerves II through XII grossly intact without focal deficits. Motor strength is 5/5 bilaterally. Deep tendon reflexes are 2+ plantar. Assessment/Plan Assessment/Plan ASSESSMENT: This is an 79-year-old female. 1. Severe anemia. 2. Generalized weakness. 3. Atrial fibrillation. 4. Polycythemia vera. 5. Myelofibrosis. 6. JAK2 mutation. 7. Myelodysplasia. 8. Cerebrovascular disease. 9. Obstructive sleep apnea. 10. Chronic obstructive pulmonary disease. 11. Coronary artery disease. 12. Congestive heart failure. 13. Sick sinus syndrome. TREATMENT: 1. Severe anemia. S/P transfusion 3 units of packed RBCs. Severe anemia is probably secondary to myelofibrosis secondary to polycythemia vera. 2. Atrial fibrillation/sick sinus syndrome. Patient is status post pacemaker implantation. A Cardiology consultation has been obtained with Dr. River Freitas. Follow recommendation of Cardiology. 3. Polycythemia vera/myelofibrosis/JAK2 mutation/myelodysplasia. 4. Cerebrovascular disease, status post cerebrovascular accident. 5. Obstructive sleep apnea. 6. Chronic obstructive pulmonary disease. 7. Coronary artery disease. 8. Congestive heart failure. Roshan Edwards MD Mar 19, 2020 19:06
--- NOTE | 2020-03-19 19:08 | NUR ---
NURSE NOTES: Patient seen in bed in semi-fowlers position sleeping. no acute signs of distress and no complaints of pain 0/10. The patient is on room air with oxygen saturation within normal limits. The patient has a L FA 20G IV that is saline locked, clean patent and intact; No bruising or erythema. The patient has a 16F valdez that is patent and draining well to gravity. The patients bed is in lowest position, locked, side rails x1, bed alarm in zone 1 and call light within reach. Will continue to monitor.
[2020-03-19 20:00] VITALS: BP 100/53
[2020-03-20] VITALS: BP 94/52
[2020-03-20 04:00] VITALS: BP 103/57
[2020-03-20] MEDS: Levothyroxine 25mcg tab ORAL SCH (05:53)
--- NOTE | 2020-03-20 06:24 | NUR ---
NURSE HAND-OFF REPORT: Important Events on Shift: Patient attemted to get out of bed and had a large soft Bowl moment in bed. Patient is A/O x4. Patient Status: No acute distress. Diet: Regular Pending Orders: Pending Results/Labs: Pending MD notification: Latest Vital Signs: Temperature 97.9 , Pulse 66 , B/P 103 /57 , Respiratory Rate 17 , O2 SAT 96 , Room Air, O2 Flow Rate . Vital Sign Comment: EKG Rhythm: Sinus Rhythm with A-Pacing Rhythm change?: N Notified?: N -Dr Zena JOHNSON Response: Message left await call Latest Yepez Fall Score: 45 Fall Risk: High Risk Safety Measures: Call light Within Reach, Bed Alarm Zone 1, Side Rails Side Rails x2, Bed position Low and Locked. Fall Precautions: Yellow Socks Yellow Gown Patient Fall Education Report to be given... Addendum: 03/20/20 at 0724 by Sayda Cao RN Report given to Daisy VARMA.
--- NOTE | 2020-03-20 07:45 | NUR ---
NURSE NOTES: Received patient A/A/Ox4 able to verbalize needs. in bed in semi-fowlers position. no acute signs of distress and no complaints of pain 0/10. The patient is on room air with oxygen saturation within normal limits. The patient has a L FA 20G PIV that is saline locked, patent and intact; No bruising or erythema. The patient has a 16F valdez that is patent and draining well to gravity with yello color urine. The patients bed is in lowest position, locked, siderails x3, P200 mattress for skin integrity. bed alarm engaged and locked. call light within reach. Will continue to monitor.
[2020-03-20 08:00] VITALS: BP 98/55
[2020-03-20] MEDS: Amiodarone 200mg tab ORAL SCH (08:18)
[2020-03-20] MEDS: Digoxin 0.125mg tab ORAL SCH (08:27)
[2020-03-20] MEDS: Heparin 5000 units/ml inj SUBQ SCH ×2 (08:34→21:12)
--- NOTE | 2020-03-20 10:25 | Nephrology Progress Note ---
Assessment/Plan Problem List: (1) Anemia (2) Paroxysmal A-fib (3) Pacemaker (4) Hypotension (5) Proteinuria Assessment Symptomatic anemia Hypotension Proteinuria, hypoalbuminemia Encephalopathy Plan March 20: Status quo. Stable from renal standpoint of view. Hemoglobin lower. 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 March 19: Status quo. Labs reviewed. Renal parameters stable. Continue per consultants. March 18: Status quo. Stable from renal standpoint of view. Continue per consultants. March 17: Labs reviewed. Renal parameters stable. Hemoglobin higher March 16: No labs drawn today. Will check can panel tomorrow. Continue per consultants. March 15: Labs reviewed. Stable from renal standpoint of view. Continues to be anemic. Transfusion monitor worker Keep the blood pressure and heart rate in check Per orders Subjective ROS Limited/Unobtainable: No Constitutional: Reports: malaise Objective Objective Last 24 Hour Vital Signs Date Time Temp Pulse Resp B/P (MAP) Pulse Ox O2 Delivery O2 Flow Rate FiO2 03/20/20 08:27 68 03/20/20 08:18 63 98/55 03/20/20 08:00 96.3 66 18 98/55 (69) 98 03/20/20 04:00 66 03/20/20 04:00 97.9 66 17 103/57 (72) 96 03/20/20 00:00 98.1 70 17 94/52 (66) 96 03/19/20 23:52 70 03/19/20 21:40 72 03/19/20 21:00 Room Air 03/19/20 20:00 97.5 70 19 100/53 (69) 96 03/19/20 16:00 97.9 73 18 95/58 (70) 96 03/19/20 16:00 71 03/19/20 12:00 98.0 72 18 99/62 (74) 93 03/19/20 12:00 77 Intake and Output 03/19/20 03/20/20 19:00 07:00 Intake Total 350 ml Output Total 650 ml 900 ml Balance -300 ml -900 ml Intake Oral 350 ml Output Urine Total 650 ml 500 ml Other 400 ml # Bowel Movements 1 1 Current Medications Medications (Trade) Dose Ordered Sig/Escobar Route PRN Reason Start Time Stop Time Status Last Admin Dose Admin Acetaminophen (Tylenol) 500 mg Q6H PRN ORAL Mild Pain (Pain Scale 1-3) 03/14/20 17:00 04/13/20 16:59 Acetaminophen (Tylenol) 650 mg Q6H PRN ORAL Temp >100.5 03/15/20 13:00 04/14/20 12:59 03/15/20 13:06 Amiodarone HCl (Cordarone) 200 mg DAILY ORAL 03/15/20 09:00 06/13/20 08:59 03/19/20 08:36 Digoxin (Lanoxin) 0.125 mg DAILY ORAL 03/15/20 09:00 06/13/20 08:59 03/20/20 08:27 Furosemide (Lasix) 20 mg DAILY ORAL 03/15/20 09:00 04/14/20 08:59 03/19/20 08:36 Gabapentin (Neurontin) 300 mg THREE TIMES A DAY ORAL 03/15/20 09:00 04/14/20 08:59 03/20/20 08:26 Heparin Sodium (Porcine) (Heparin 5000 units/ml) 5,000 units EVERY 12 HOURS SUBQ 03/14/20 21:00 04/28/20 20:59 03/20/20 08:34 Levofloxacin 50 ml @ 50 mls/hr Q24H IVPB 03/18/20 21:00 03/25/20 20:59 03/19/20 21:14 Levothyroxine Sodium (Synthroid) 25 mcg DAILY@0630 ORAL 03/15/20 06:30 04/14/20 06:29 03/20/20 05:53 Metoprolol Tartrate (Lopressor) 25 mg Q12HR ORAL 03/14/20 21:00 06/12/20 20:59 03/18/20 08:45 Laboratory Tests 03/20/20 09:50: White Blood Count [Pending], Red Blood Count [Pending], Hemoglobin [Pending], He matocrit [Pending], Mean Corpuscular Volume [Pending], Mean Corpuscular Hemoglobin [Pending], Mean Corpuscular Hemoglobin Concent [Pending], Red Cell Distribution Width [Pending], Platelet Count [Pending], Mean Platelet Volume [Pending], Neutrophils (%) (Auto) [Pending], Lymphocytes (%) (Auto) [Pending], Monocytes (%) (Auto) [Pending], Eosinophils (%) (Auto) [Pending], Basophils (%) (Auto) [Pending], Sodium Level [Pending], Potassium Level [Pending], Chloride Level [Pending], Carbon Dioxide Level [Pending], Blood Urea Nitrogen [Pending], Creatinine [Pending], Estimat Glomerular Filtration Rate [Pending], Glucose Level [Pending], Calcium Level [Pending] Height (Feet): 5 Height (Inches): 2.00 Weight (Pounds): 93 General Appearance: no apparent distress Cardiovascular: normal rate Respiratory/Chest: decreased breath sounds Abdomen: soft Objective No change Sudhakar Griggs MD Mar 20, 2020 10:25
[2020-03-20 10:33] LABS: HEMATOCRIT 24.1 % (37.0-47.0); HEMOGLOBIN 7.9 G/DL (12.0-16.0); MEAN CORPUSCULAR VOLUME 86 FL (80-99); PLATELET COUNT 207 K/UL (150-450); RED CELL DISTRIBUTION WIDTH 15.7 % (11.6-14.8)
[2020-03-20 10:43] LABS: ANION GAP 4 mmol/L (5-15); BLOOD UREA NITROGEN 25 mg/dL (7-18); CALCIUM 8.2 MG/DL (8.5-10.1); CARBON DIOXIDE 30 MMOL/L (21-32); CHLORIDE 108 MMOL/L (98-107); CREATININE 0.8 MG/DL (0.55-1.30); POTASSIUM 3.5 MMOL/L (3.5-5.1); SODIUM 142 MMOL/L (136-145)
[2020-03-20 12:00] VITALS: BP 105/48
--- NOTE | 2020-03-20 13:08 | Surgery Progress Note ---
Surgery Progress Note Subjective Additional Comments Patient seen examined bedside. No complaints. Resting comfortable. No abdominal pain no nausea vomiting tolerating diet. Objective Last 24 Hour Vital Signs Date Time Temp Pulse Resp B/P (MAP) Pulse Ox O2 Delivery O2 Flow Rate FiO2 03/20/20 12:00 97.5 66 18 105/48 (67) 98 03/20/20 09:00 Room Air 03/20/20 08:27 68 03/20/20 08:18 63 98/55 03/20/20 08:00 96.3 66 18 98/55 (69) 98 03/20/20 08:00 68 03/20/20 04:00 66 03/20/20 04:00 97.9 66 17 103/57 (72) 96 03/20/20 00:00 98.1 70 17 94/52 (66) 96 03/19/20 23:52 70 03/19/20 21:40 72 03/19/20 21:00 Room Air 03/19/20 20:00 97.5 70 19 100/53 (69) 96 03/19/20 16:00 97.9 73 18 95/58 (70) 96 03/19/20 16:00 71 I&O Intake and Output 03/19/20 03/20/20 19:00 07:00 Intake Total 350 ml Output Total 650 ml 900 ml Balance -300 ml -900 ml Intake Oral 350 ml Output Urine Total 650 ml 500 ml Other 400 ml # Bowel Movements 1 1 Dressing: saturated Cardiovascular: RSR Respiratory: decreased breath sounds Abdomen: soft, flat, non-tender, present bowel sounds, non-distended Extremities: no edema, no tenderness, no cyanosis Laboratory Tests Test 03/20/20 09:50 White Blood Count 4.0 K/UL (4.8-10.8) L Red Blood Count 2.80 M/UL (4.20-5.40) L Hemoglobin 7.9 G/DL (12.0-16.0) L Hematocrit 24.1 % (37.0-47.0) L Mean Corpuscular Volume 86 FL (80-99) Mean Corpuscular Hemoglobin 28.1 PG (27.0-31.0) Mean Corpuscular Hemoglobin Concent 32.7 G/DL (32.0-36.0) Red Cell Distribution Width 15.7 % (11.6-14.8) H Platelet Count 207 K/UL (150-450) Mean Platelet Volume 13.1 FL (6.5-10.1) H Neutrophils (%) (Auto) % (45.0-75.0) Lymphocytes (%) (Auto) % (20.0-45.0) Monocytes (%) (Auto) % (1.0-10.0) Eosinophils (%) (Auto) % (0.0-3.0) Basophils (%) (Auto) % (0.0-2.0) Differential Total Cells Counted 100 Neutrophils % (Manual) 65 % (45-75) Lymphocytes % (Manual) 26 % (20-45) Monocytes % (Manual) 5 % (1-10) Eosinophils % (Manual) 0 % (0-3) Basophils % (Manual) 3 % (0-2) H Band Neutrophils 1 % (0-8) Nucleated Red Blood Cells 2 /100 WBC Platelet Estimate Adequate Platelet Morphology Giant Platelets Occasional Hypochromasia 1+ Anisocytosis 1+ Sodium Level 142 MMOL/L (136-145) Potassium Level 3.5 MMOL/L (3.5-5.1) Chloride Level 108 MMOL/L (98-107) H Carbon Dioxide Level 30 MMOL/L (21-32) Anion Gap 4 mmol/L (5-15) L Blood Urea Nitrogen 25 mg/dL (7-18) H Creatinine 0.8 MG/DL (0.55-1.30) Estimat Glomerular Filtration Rate > 60 mL/min (>60) Glucose Level 101 MG/DL (74-106) Calcium Level 8.2 MG/DL (8.5-10.1) L Plan Problems: (1) Altered mental state (2) Signs and symptoms of anemia (3) Hypotension (4) Proteinuria (5) Generalized weakness (6) Protein-calorie malnutrition, severe Assessment & Plan: Pt presented on admission with multiple Pressure Injuries. Sacral DTPI (L)8cm x (W)8.5cm.Base of Pressure injury is indurated, maroon and tender when minimally palpated. DTPI L trochanter (L)10cm x (W)12cm. Base of pressure injury is maroon with surrounding non-blanchable erythema.Pt complained of tenderness when affected area minimally palpated. R Heel is boggy with non-blanchable erythema. L Heel is soft but easily blanchable . Tx.Plan. Apply Moisture Barrier Paste to Sacrum. Cover with Optifoam drsg. Change every 3 days and prn. Apply Cavilon Skin Barrier to R and L Trochanter. Cover each trochanter with Optifoam drsg. Change every 7 days and prn. Apply Cavilon Skin Barrier to both heels. Cover each heel with Optifoam drsg. Change every 7 days and prn. Reposition at least every 2hours or as tolerated. Off-load heels with Pillow. bmi 17 now alb low needs optimization breaking down dti noted DAILY ESTIMATED NEEDS: Needs based on underweight, cardiac/ 50kg 30-35 kcals/kg 5771-7665 total kcals 1.25-1.5 g protein/kg 63-75 g total protein 25-30 mL/kg 6083-7370 total fluid mLs NUTRITION DIAGNOSIS: Increased kcal/prot needs R/T underweight status as evidenced by pt @ 89% IBW w/ BMI of 18.5. CURRENT DIET:REGULAR PO DIET RECOMMENDATIONS: Regular/ texture as tolerated ADDITIONAL RECOMMENDATIONS: 1) Standing wt or calibrated bedscale wt for accurate CBW 2) Ensure Enlive BID w/ variable intake (350kcal/20g prot in 1 bottle) Add snacks to trays TID 3) BG monitoring 4) On lasix, closely monitor lytes, replete as needed (7) Abnormal LFTs (8) Severe anemia Assessment & Plan: severe anemia. hx of bleeding held anticoagulation since prior right hemothorax s/p evacuation and vats transfusing prbc coags noted ddx includes possible GI hemorrhage. possible blood disorder protonix prior imaging reviewed as below abnormal lft's likely heme breakdown products thank you will follow with recs Gallbladder demonstrates a gallstone. This also reported on same day CT. Sonographic Camacho's sign is negative. Common bile duct measures 5 mm in diameter. No intrahepatic biliary ductal dilatation. Liver demonstrates normal echogenicity, no focal abnormality. Portal vein and hepatic veins are patent. Pancreas is unremarkable. The spleen demonstrates a complex upper pole cyst that measures 2.7 cm in diameter. The spleen is borderline enlarged. There are bilateral pleural effusions Left kidney measures 10.2 cm in length. Right kidney measures 9.2 cm length. Both kidneys demonstrate normal echogenicity. There is no hydronephrosis. No focal abnormality . Non-aneurysmal abdominal aorta . Impression: Cholelithiasis. Negative for dilated bile ducts 2.7 cm complex upper pole splenic cyst, also reported on prior imaging studies. Bilateral pleural effusions Chest: The lungs demonstrate a mosaic perfusion pattern, which is more striking than that seen previously. Some atelectasis and consolidation is seen involving both lower lobes. This appears similar on the right, slightly more extensive on the left. There is a moderate-sized right pleural effusion which appears similar to the previous study. There is a small left pleural effusion which is new since the previous study. Previous exam demonstrated a 1.5 cm opacity in the inferior right azygoesophageal recess. This is not evident currently although could be obscured by surrounding atelectatic lung. The heart is enlarged. There is a left chest pacemaker again demonstrated. No pericardial effusion. No mediastinal or hilar mass or adenopathy. Right lower pole thyroid calcification is again demonstrated. No axillary or chest wall mass or adenopathy. There are fairly profound degenerative changes of the bilateral shoulders. There is evidence of interim healing of previously demonstrated right rib fractures, nearly but not completely healed as some fracture lines persist. There are degenerative changes of the thoracic spine noted. Abdomen pelvis: What is probably a normal appendix is demonstrated. There is extensive colonic diverticulosis. No evidence of diverticulitis. The rectum is mildly distended, mostly with gas with some stool as well. No small bowel distention or small bowel wall thickening. Numerous surgical clips are seen in the retroperitoneum and left side of the pelvis. The stomach and duodenum are unremarkable. The gallbladder contains a gallstone. No biliary ductal dilatation. The liver is mildly enlarged. The pancreas is unremarkable. The spleen is enlarged, measuring 14 cm long axis dimension. It demonstrates a complex upper pole cyst, also previously demonstrated the adrenals and kidneys are unremarkable. There is a retroaortic left renal vein incidentally noted. The uterus is absent.. The bladder is unremarkable. The bones demonstrate degenerative spondylosis changes. IMPRESSION: Cardiomegaly Unchanged moderate right pleural effusion, since June 2019. New small left pleural effusion Bilateral mosaic perfusion pattern, probably on the basis of pulmonary edema Bilateral basilar compressive atelectasis and possible consolidation Interim healing of previously demonstrated right rib fractures Previously demonstrated right azygoesophageal recess lesion is no longer evident, may have resolved or may be obscured by surrounding lung parenchyma. 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
--- NOTE | 2020-03-20 14:36 | Internal Med Progress Note ---
Subjective Date of Service: Mar 20, 2020 Physician Name Roshan Edwards Attending Physician Antonio Adrian MD Current Medications Medications (Trade) Dose Ordered Sig/Escobar Route PRN Reason Start Time Stop Time Status Last Admin Dose Admin Acetaminophen (Tylenol) 500 mg Q6H PRN ORAL Mild Pain (Pain Scale 1-3) 03/14/20 17:00 04/13/20 16:59 Acetaminophen (Tylenol) 650 mg Q6H PRN ORAL Temp >100.5 03/15/20 13:00 04/14/20 12:59 03/15/20 13:06 Amiodarone HCl (Cordarone) 200 mg DAILY ORAL 03/15/20 09:00 06/13/20 08:59 03/19/20 08:36 Digoxin (Lanoxin) 0.125 mg DAILY ORAL 03/15/20 09:00 06/13/20 08:59 03/20/20 08:27 Furosemide (Lasix) 20 mg DAILY ORAL 03/15/20 09:00 04/14/20 08:59 03/19/20 08:36 Gabapentin (Neurontin) 300 mg THREE TIMES A DAY ORAL 03/15/20 09:00 04/14/20 08:59 03/20/20 12:25 Heparin Sodium (Porcine) (Heparin 5000 units/ml) 5,000 units EVERY 12 HOURS SUBQ 03/14/20 21:00 04/28/20 20:59 03/20/20 08:34 Levofloxacin 50 ml @ 50 mls/hr Q24H IVPB 03/18/20 21:00 03/25/20 20:59 03/19/20 21:14 Levothyroxine Sodium (Synthroid) 25 mcg DAILY@0630 ORAL 03/15/20 06:30 04/14/20 06:29 03/20/20 05:53 Metoprolol Tartrate (Lopressor) 25 mg Q12HR ORAL 03/14/20 21:00 06/12/20 20:59 03/18/20 08:45 Allergies: Coded Allergies: No Known Allergies (Unverified , 04/24/18) ROS Limited/Unobtainable: Yes Subjective 79 YO F with history of polycythemia vera and myelofibrosis admitted with generalized weakness. Now severe anemia. Cover for Int Med-DR Adrian Objective Last Vital Signs Date Time Temp Pulse Resp B/P (MAP) Pulse Ox O2 Delivery O2 Flow Rate FiO2 03/20/20 12:00 97.5 66 18 105/48 (67) 98 03/20/20 09:00 Room Air 03/14/20 16:17 99 Laboratory Tests Test 03/20/20 09:50 White Blood Count 4.0 K/UL (4.8-10.8) L Red Blood Count 2.80 M/UL (4.20-5.40) L Hemoglobin 7.9 G/DL (12.0-16.0) L Hematocrit 24.1 % (37.0-47.0) L Mean Corpuscular Volume 86 FL (80-99) Mean Corpuscular Hemoglobin 28.1 PG (27.0-31.0) Mean Corpuscular Hemoglobin Concent 32.7 G/DL (32.0-36.0) Red Cell Distribution Width 15.7 % (11.6-14.8) H Platelet Count 207 K/UL (150-450) Mean Platelet Volume 13.1 FL (6.5-10.1) H Neutrophils (%) (Auto) % (45.0-75.0) Lymphocytes (%) (Auto) % (20.0-45.0) Monocytes (%) (Auto) % (1.0-10.0) Eosinophils (%) (Auto) % (0.0-3.0) Basophils (%) (Auto) % (0.0-2.0) Differential Total Cells Counted 100 Neutrophils % (Manual) 65 % (45-75) Lymphocytes % (Manual) 26 % (20-45) Monocytes % (Manual) 5 % (1-10) Eosinophils % (Manual) 0 % (0-3) Basophils % (Manual) 3 % (0-2) H Band Neutrophils 1 % (0-8) Nucleated Red Blood Cells 2 /100 WBC Platelet Estimate Adequate Platelet Morphology Giant Platelets Occasional Hypochromasia 1+ Anisocytosis 1+ Sodium Level 142 MMOL/L (136-145) Potassium Level 3.5 MMOL/L (3.5-5.1) Chloride Level 108 MMOL/L (98-107) H Carbon Dioxide Level 30 MMOL/L (21-32) Anion Gap 4 mmol/L (5-15) L Blood Urea Nitrogen 25 mg/dL (7-18) H Creatinine 0.8 MG/DL (0.55-1.30) Estimat Glomerular Filtration Rate > 60 mL/min (>60) Glucose Level 101 MG/DL (74-106) Calcium Level 8.2 MG/DL (8.5-10.1) L Intake and Output 03/19/20 03/20/20 19:00 07:00 Intake Total 350 ml Output Total 650 ml 900 ml Balance -300 ml -900 ml Intake Oral 350 ml Output Urine Total 650 ml 500 ml Other 400 ml # Bowel Movements 1 1 Objective PHYSICAL EXAMINATION: GENERAL: Patient is well-developed, well-nourished, ill-appearing female who is nonverbal. HEENT: Eyes pupils are equal and responsive to light and accommodation. Extraocular movements are intact. NECK: Supple. No lymphadenopathy. CHEST: Lungs are clear to auscultation bilaterally without wheezes or rales. CARDIOVASCULAR: Regular rhythm and rate. S1 and S2 are normal without murmurs, rubs, or gallops. ABDOMEN: Soft, nontender, and nondistended. Positive bowel sounds. No evidence of hepatosplenomegaly. Currently, no rebound or guarding noted. EXTREMITIES: Negative for clubbing, cyanosis, or edema. RECTAL: Not performed. GENITAL: Not performed. NEUROLOGIC: Cranial nerves II through XII grossly intact without focal deficits. Motor strength is 5/5 bilaterally. Deep tendon reflexes are 2+ plantar. Assessment/Plan Assessment/Plan ASSESSMENT: This is an 79-year-old female. 1. Severe anemia. 2. Generalized weakness. 3. Atrial fibrillation. 4. Polycythemia vera. 5. Myelofibrosis. 6. JAK2 mutation. 7. Myelodysplasia. 8. Cerebrovascular disease. 9. Obstructive sleep apnea. 10. Chronic obstructive pulmonary disease. 11. Coronary artery disease. 12. Congestive heart failure. 13. Sick sinus syndrome. TREATMENT: 1. Severe anemia. S/P transfusion 3 units of packed RBCs. Severe anemia is probably secondary to myelofibrosis secondary to polycythemia vera. 2. Atrial fibrillation/sick sinus syndrome. Patient is status post pacemaker implantation. A Cardiology consultation has been obtained with Dr. River Freitas. Follow recommendation of Cardiology. 3. Polycythemia vera/myelofibrosis/JAK2 mutation/myelodysplasia. 4. Cerebrovascular disease, status post cerebrovascular accident. 5. Obstructive sleep apnea. 6. Chronic obstructive pulmonary disease. 7. Coronary artery disease. 8. Congestive heart failure. Roshan Edwards MD Mar 20, 2020 14:36
--- NOTE | 2020-03-20 15:00 | NUR ---
NURSE NOTES: DR MEYER MADE AWARE OF THE HGB 7.9. NO NEW ORDER NOTED. WILL CONT TO MONITOR.
[2020-03-20 16:00] VITALS: BP 95/51
[2020-03-20] MEDS ORDERED: Tubing IV Secondary IV ONE (17:04)
[2020-03-20] MEDS ORDERED: NS 275ml ONE (17:04)
--- NOTE | 2020-03-20 17:26 | Cardiac Electrophysiology PN ---
Assessment/Plan Assessment/Plan 1. Hypertension. On Lopressor 25 po bid 2. Status post [employer] pacer in 2010 and generator change by me in 2019. 3. Paroxysmal atrial fibrillation with rapid ventricular response. On digoxin, metoprolol and amiodarone. Off anticoagulation for recurrent bleeding and profound anemia. Dig level 0.9 4. Profound anemia with hemoglobin of 3 to 4. S/P 6 units of blood transfusion last admission in 01/2020 Now Hb 5 and received 3 units of PRBC again. Hb 8.7 5. History of hemothorax, status post VATS. 6. Pulmonary hypertension. 7. Myelofibrosis. 8. Positive blood Cx on Vancomycin DW RN Subjective Subjective Feeling better after 3 units of PRBC transfusion.Intermittent A Paced RN at bedside. Blood Cx is positive for gram + and is on Vanco Had BM and feeling beter Objective Last 24 Hour Vital Signs Date Time Temp Pulse Resp B/P (MAP) Pulse Ox O2 Delivery O2 Flow Rate FiO2 03/20/20 16:00 99.5 65 20 95/51 (66) 96 03/20/20 12:00 97.5 66 18 105/48 (67) 98 03/20/20 09:00 Room Air 03/20/20 08:27 68 03/20/20 08:18 63 98/55 03/20/20 08:00 96.3 66 18 98/55 (69) 98 03/20/20 08:00 68 03/20/20 04:00 66 03/20/20 04:00 97.9 66 17 103/57 (72) 96 03/20/20 00:00 98.1 70 17 94/52 (66) 96 03/19/20 23:52 70 03/19/20 21:40 72 03/19/20 21:00 Room Air 03/19/20 20:00 97.5 70 19 100/53 (69) 96 Intake and Output 03/19/20 03/20/20 19:00 07:00 Intake Total 350 ml Output Total 650 ml 900 ml Balance -300 ml -900 ml Intake Oral 350 ml Output Urine Total 650 ml 500 ml Other 400 ml # Bowel Movements 1 1 Laboratory Tests Test 03/20/20 09:50 White Blood Count 4.0 K/UL (4.8-10.8) L Red Blood Count 2.80 M/UL (4.20-5.40) L Hemoglobin 7.9 G/DL (12.0-16.0) L Hematocrit 24.1 % (37.0-47.0) L Mean Corpuscular Volume 86 FL (80-99) Mean Corpuscular Hemoglobin 28.1 PG (27.0-31.0) Mean Corpuscular Hemoglobin Concent 32.7 G/DL (32.0-36.0) Red Cell Distribution Width 15.7 % (11.6-14.8) H Platelet Count 207 K/UL (150-450) Mean Platelet Volume 13.1 FL (6.5-10.1) H Neutrophils (%) (Auto) % (45.0-75.0) Lymphocytes (%) (Auto) % (20.0-45.0) Monocytes (%) (Auto) % (1.0-10.0) Eosinophils (%) (Auto) % (0.0-3.0) Basophils (%) (Auto) % (0.0-2.0) Differential Total Cells Counted 100 Neutrophils % (Manual) 65 % (45-75) Lymphocytes % (Manual) 26 % (20-45) Monocytes % (Manual) 5 % (1-10) Eosinophils % (Manual) 0 % (0-3) Basophils % (Manual) 3 % (0-2) H Band Neutrophils 1 % (0-8) Nucleated Red Blood Cells 2 /100 WBC Platelet Estimate Adequate Platelet Morphology Giant Platelets Occasional Hypochromasia 1+ Anisocytosis 1+ Sodium Level 142 MMOL/L (136-145) Potassium Level 3.5 MMOL/L (3.5-5.1) Chloride Level 108 MMOL/L (98-107) H Carbon Dioxide Level 30 MMOL/L (21-32) Anion Gap 4 mmol/L (5-15) L Blood Urea Nitrogen 25 mg/dL (7-18) H Creatinine 0.8 MG/DL (0.55-1.30) Estimat Glomerular Filtration Rate > 60 mL/min (>60) Glucose Level 101 MG/DL (74-106) Calcium Level 8.2 MG/DL (8.5-10.1) L Objective HEAD AND NECK: Showed no JVD. LUNGS: Clear. CARDIOVASCULAR: Regular S1 and S2 with no gallop. Pacemaker in left subclavian. ABDOMEN: Soft. EXTREMITIES: No pitting edema. LABORATORY AND DIAGNOSTIC DATA: Labs show white count of 3.8, hemoglobin was 5, improved to 5.6, and platelet count was 200. Sodium is 140, potassium 4.2, BUN of 23, creatinine 0.7, and glucose of 91. Troponin is negative x2. Digoxin level is 0.9. 1. HTN. Resume the patient's metoprolol 25 mg. 2. Status post [employer] pacemaker in 2010 and generator change by ks in 2018. The pacemaker will be interrogated for further evaluation. 3. Paroxysmal atrial fibrillation on digoxin, metoprolol, and amiodarone. Digoxin level is therapeutic, off anticoagulation for profound anemia. 4. Polycythemia vera and myelofibrosis with profound anemia with hemoglobin of 3.4 on last admission. On discharge in January, hemoglobin was up to 11, but today again hemoglobin is 5. The patient is receiving blood transfusion, followed by Hematology. 5. Status post VATS for history of hemothorax. 6. History of pulmonary hypertension. River Freitas MD Mar 20, 2020 17:26
--- NOTE | 2020-03-20 19:26 | NUR ---
NURSE HAND-OFF REPORT: Important Events on Shift:[NO SIGNIFICANT EVENTS] Patient Status: [STABLE] Diet: [REG] Pending Orders: [] Pending Results/Labs:[] Pending MD notification:[] Latest Vital Signs: Temperature 99.5 , Pulse 72 , B/P 95 /51 , Respiratory Rate 20 , O2 SAT 96 , Room Air, O2 Flow Rate . Vital Sign Comment: [] EKG Rhythm: Sinus Rhythm with A-Pacing Rhythm change?: N Notified?: N -Dr Zena JOHNSON Response: Message left await call Latest Yepez Fall Score: 45 Fall Risk: High Risk Safety Measures: Call light Within Reach, Bed Alarm Zone 2, Side Rails Side Rails x3, Bed position Low and Locked. Fall Precautions: Yellow Socks Yellow Gown Patient Fall Education Report given to [JHAR].
--- NOTE | 2020-03-20 19:30 | NUR ---
NURSE NOTES: Patient received from [facility]JO [place]. Patient is sleeping but easily arousable. Patient is on room air with no signs of acute respiratory distress noted. Patient has a valdez catheter 16 greenlandic, patent and well draining. Patient has a right 20 gauge on her wrist, patent and flushed. Patient has no complaints as of the moment. Bed is in the lowest position and locked, call light within reach. Will continue to monitor.
[2020-03-20 20:00] VITALS: BP 94/51
[2020-03-21] VITALS: BP 100/50
[2020-03-21 04:00] VITALS: BP 111/53
[2020-03-21] MEDS: Levothyroxine 25mcg tab ORAL SCH (06:45)
--- NOTE | 2020-03-21 07:49 | NUR ---
NURSE HAND-OFF REPORT: Important Events on Shift:[] Patient Status: [Stable] Diet: [Regular diet] Pending Orders: [] Pending Results/Labs:[] Pending MD notification:[] Latest Vital Signs: Temperature 98.2 , Pulse 63 , B/P 111 /53 , Respiratory Rate 16 , O2 SAT 96 , Room Air, O2 Flow Rate . Vital Sign Comment: [] EKG Rhythm: A paced Rhythm change?: N MD Notified?: N -Dr Zena JOHNSON Response: Message left await call Latest Yepez Fall Score: 45 Fall Risk: High Risk Safety Measures: Call light Within Reach, Bed Alarm Zone 2, Side Rails Side Rails x3, Bed position Low and Locked. Fall Precautions: Yellow Socks Yellow Gown Patient Fall Education Report given to [IRA Crum].
[2020-03-21 08:00] VITALS: BP 99/46
--- NOTE | 2020-03-21 08:39 | NUR ---
NURSE NOTES: Received patient report from IRA Jeffries. patient is AO x3 awake and able to make needs known. Patient shows no signs of distress or pain at the time. Patient is on room air and shows no signs of respiratory distress at the time. IV is intact and patent. There are no signs of erythema, infiltration, or bleeding. Bed is in the lowest position, call light is within reach, side rails up x3. Liang catheter intact and patent. Will continue to monitor.
[2020-03-21] MEDS: Amiodarone 200mg tab ORAL SCH (09:44)
[2020-03-21] MEDS: Digoxin 0.125mg tab ORAL SCH (09:45)
[2020-03-21] MEDS: Heparin 5000 units/ml inj SUBQ SCH ×2 (09:46→21:31)
--- NOTE | 2020-03-21 10:38 | Nephrology Progress Note ---
Assessment/Plan Problem List: (1) Anemia (2) Paroxysmal A-fib (3) Pacemaker (4) Hypotension (5) Proteinuria Assessment Symptomatic anemia Hypotension Proteinuria, hypoalbuminemia Encephalopathy Plan March 21: No labs drawn today. Remains stable from renal standpoint of view. Continue per consultants. March 20: Status quo. Stable from renal standpoint of view. Hemoglobin lower. Defer transfusion to claim administrator. March 19: Status quo. Labs reviewed. Renal parameters stable. Continue per consultants. March 18: Status quo. Stable from renal standpoint of view. Continue per consultants. March 17: Labs reviewed. Renal parameters stable. Hemoglobin higher March 16: No labs drawn today. Will check can panel tomorrow. Continue per consultants. March 15: Labs reviewed. Stable from renal standpoint of view. Continues to be anemic. Transfusion nuclear monitoring technician Keep the blood pressure and heart rate in check Per orders Subjective ROS Limited/Unobtainable: No Constitutional: Reports: malaise Objective Objective Last 24 Hour Vital Signs Date Time Temp Pulse Resp B/P (MAP) Pulse Ox O2 Delivery O2 Flow Rate FiO2 03/21/20 09:45 62 03/21/20 09:00 62 99/46 03/21/20 08:00 97.4 62 18 99/46 (63) 95 03/21/20 04:00 61 03/21/20 04:00 98.2 63 16 111/53 (72) 96 03/21/20 00:00 98.1 65 16 100/50 (67) 95 03/21/20 00:00 68 03/20/20 21:00 69 94/51 03/20/20 21:00 Room Air 03/20/20 20:00 98.1 69 18 94/51 (65) 93 03/20/20 20:00 69 03/20/20 16:00 72 03/20/20 16:00 99.5 65 20 95/51 (66) 96 03/20/20 12:00 65 03/20/20 12:00 97.5 66 18 105/48 (67) 98 Intake and Output 03/20/20 03/21/20 19:00 07:00 Intake Total 240 ml 120 ml Output Total 350 ml 400 ml Balance -110 ml -280 ml Intake Oral 240 ml 120 ml Output Urine Total 350 ml 400 ml # Bowel Movements 1 Current Medications Medications (Trade) Dose Ordered Sig/Escobar Route PRN Reason Start Time Stop Time Status Last Admin Dose Admin Acetaminophen (Tylenol) 500 mg Q6H PRN ORAL Mild Pain (Pain Scale 1-3) 03/14/20 17:00 04/13/20 16:59 Acetaminophen (Tylenol) 650 mg Q6H PRN ORAL Temp >100.5 03/15/20 13:00 04/14/20 12:59 03/15/20 13:06 Amiodarone HCl (Cordarone) 200 mg DAILY ORAL 03/15/20 09:00 06/13/20 08:59 03/21/20 09:44 Digoxin (Lanoxin) 0.125 mg DAILY ORAL 03/15/20 09:00 06/13/20 08:59 03/21/20 09:45 Furosemide (Lasix) 20 mg DAILY ORAL 03/15/20 09:00 04/14/20 08:59 03/21/20 09:45 Gabapentin (Neurontin) 300 mg THREE TIMES A DAY ORAL 03/15/20 09:00 04/14/20 08:59 03/21/20 09:44 Heparin Sodium (Porcine) (Heparin 5000 units/ml) 5,000 units EVERY 12 HOURS SUBQ 03/14/20 21:00 04/28/20 20:59 03/21/20 09:46 Levofloxacin 50 ml @ 50 mls/hr Q24H IVPB 03/18/20 21:00 03/25/20 20:59 03/20/20 21:13 Levothyroxine Sodium (Synthroid) 25 mcg DAILY@0630 ORAL 03/15/20 06:30 04/14/20 06:29 03/21/20 06:45 Metoprolol Tartrate (Lopressor) 25 mg Q12HR ORAL 03/14/20 21:00 06/12/20 20:59 03/18/20 08:45 Height (Feet): 5 Height (Inches): 2.00 Weight (Pounds): 93 General Appearance: no apparent distress, lethargic Cardiovascular: normal rate Respiratory/Chest: decreased breath sounds Abdomen: distended Objective No change Sudhakar Griggs MD Mar 21, 2020 10:38
--- NOTE | 2020-03-21 11:56 | Cardiac Electrophysiology PN ---
Assessment/Plan Assessment/Plan 1. Hypertension. On Lopressor 25 po bid 2. Status post [employer] pacer in 2010 and generator change by me in 2019. 3. Paroxysmal atrial fibrillation with rapid ventricular response. On digoxin, metoprolol and amiodarone. Off anticoagulation for recurrent bleeding and profound anemia. Dig level 0.9 4. Profound anemia with hemoglobin of 3 to 4. S/P 6 units of blood transfusion last admission in 01/2020 Now Hb 5 and received 3 units of PRBC again. Hb 8.7 5. History of hemothorax, status post VATS. 6. Pulmonary hypertension. 7. Myelofibrosis. 8. Positive blood Cx on Vancomycin DW RN Subjective Subjective Feeling better after 3 units of PRBC transfusion. Intermittent A Paced RN at bedside. Blood Cx is positive for gram + and is on Vanco No CP or SOB. On RA Objective Last 24 Hour Vital Signs Date Time Temp Pulse Resp B/P (MAP) Pulse Ox O2 Delivery O2 Flow Rate FiO2 03/21/20 09:45 62 03/21/20 09:00 Room Air 03/21/20 09:00 62 99/46 03/21/20 08:00 64 03/21/20 08:00 97.4 62 18 99/46 (63) 95 03/21/20 04:00 61 03/21/20 04:00 98.2 63 16 111/53 (72) 96 03/21/20 00:00 98.1 65 16 100/50 (67) 95 03/21/20 00:00 68 03/20/20 21:00 69 94/51 03/20/20 21:00 Room Air 03/20/20 20:00 98.1 69 18 94/51 (65) 93 03/20/20 20:00 69 03/20/20 16:00 72 03/20/20 16:00 99.5 65 20 95/51 (66) 96 03/20/20 12:00 65 03/20/20 12:00 97.5 66 18 105/48 (67) 98 Intake and Output 03/20/20 03/21/20 19:00 07:00 Intake Total 240 ml 120 ml Output Total 350 ml 400 ml Balance -110 ml -280 ml Intake Oral 240 ml 120 ml Output Urine Total 350 ml 400 ml # Bowel Movements 1 Objective HEAD AND NECK: Showed no JVD. LUNGS: Clear. CARDIOVASCULAR: Regular S1 and S2 with no gallop. Pacemaker in left subclavian. ABDOMEN: Soft. EXTREMITIES: No pitting edema. LABORATORY AND DIAGNOSTIC DATA: Labs show white count of 3.8, hemoglobin was 5, improved to 5.6, and platelet count was 200. Sodium is 140, potassium 4.2, BUN of 23, creatinine 0.7, and glucose of 91. Troponin is negative x2. Digoxin level is 0.9. 1. HTN. Resume the patient's metoprolol 25 mg. 2. Status post [employer] pacemaker in 2010 and generator change by tn in 2018. The pacemaker will be interrogated for further evaluation. 3. Paroxysmal atrial fibrillation on digoxin, metoprolol, and amiodarone. Digoxin level is therapeutic, off anticoagulation for profound anemia. 4. Polycythemia vera and myelofibrosis with profound anemia with hemoglobin of 3.4 on last admission. On discharge in January, hemoglobin was up to 11, but today again hemoglobin is 5. The patient is receiving blood transfusion, followed by Hematology. 5. Status post VATS for history of hemothorax. 6. History of pulmonary hypertension. River Freitas MD Mar 21, 2020 11:56
[2020-03-21 12:00] VITALS: BP 96/45
--- NOTE | 2020-03-21 12:09 | NUR ---
RD ASSESSMENT & RECOMMENDATIONS SEE CARE ACTIVITY FOR COMPLETE ASSESSMENT DAILY ESTIMATED NEEDS: Needs based on underweight, cardiac/ 50kg 30-35 kcals/kg 6156-5056 total kcals 1.25-1.5 g protein/kg 63-75 g total protein 25-30 mL/kg 3270-7105 total fluid mLs NUTRITION DIAGNOSIS: Increased kcal/prot needs R/T underweight status as evidenced by pt @ 89% IBW w/ BMI of 18.5. CURRENT DIET:REGULAR PO DIET RECOMMENDATIONS: Regular/ texture as tolerated ADDITIONAL RECOMMENDATIONS: 1) Standing wt or calibrated bedscale wt for accurate CBW 2) Ensure Enlive BID w/ fair intake (350kcal/20g prot in 1 bottle) Add snacks to trays TID 3) Monitor BUN- trending up, pt on lasix. -> consider lowering lasix nohemi w/ fair PO intake 5) Wound healing: add MVI x 1, Vit C 250mg QD Jamal BID
--- NOTE | 2020-03-21 13:42 | NUR ---
*-*DISCHARGE PLANNING*-* PATIENT HAS BEEN REFERRED TO: [facility] P: [phone]
--- NOTE | 2020-03-21 13:50 | NUR ---
*-*DISCHARGE PLAN*-* PATIENT HAS BEEN ACCEPTED TO: [facility] P: [phone] S/W [facility] SERVICE UPON DISCHARGE.
--- NOTE | 2020-03-21 15:34 | NUR ---
CASE MANAGEMENT:REVIEW 03/21/20 SI: SYMPTOMATIC ANEMIA...S/P 3 UNITS PRBC'S 96.6 61 18 96/45 100% ON RA IS: IV LEVAQUIN Q24 NEURONTIN PO TID LASIX PO QD AMIODARONE PO QD DIGOXIN PO QD SYNTHROID PO QD HEPARIN SQ Q12 LOPRESSOR PO Q12 : TELEMETRY STATUS DCP; FROM HOME WITH CAREGIVER
[2020-03-21 16:00] VITALS: BP 98/49
--- NOTE | 2020-03-21 17:54 | Surgery Progress Note ---
Surgery Progress Note Subjective Additional Comments afebrile, HD stable comfortable Objective Last 24 Hour Vital Signs Date Time Temp Pulse Resp B/P (MAP) Pulse Ox O2 Delivery O2 Flow Rate FiO2 03/21/20 16:00 62 03/21/20 16:00 98.8 64 18 98/49 (65) 96 03/21/20 12:00 62 03/21/20 12:00 96.6 61 18 96/45 (62) 100 03/21/20 09:45 62 03/21/20 09:00 Room Air 03/21/20 09:00 62 99/46 03/21/20 08:00 64 03/21/20 08:00 97.4 62 18 99/46 (63) 95 03/21/20 04:00 61 03/21/20 04:00 98.2 63 16 111/53 (72) 96 03/21/20 00:00 98.1 65 16 100/50 (67) 95 03/21/20 00:00 68 03/20/20 21:00 69 94/51 03/20/20 21:00 Room Air 03/20/20 20:00 98.1 69 18 94/51 (65) 93 03/20/20 20:00 69 I&O Intake and Output 03/20/20 03/21/20 19:00 07:00 Intake Total 240 ml 120 ml Output Total 350 ml 400 ml Balance -110 ml -280 ml Intake Oral 240 ml 120 ml Output Urine Total 350 ml 400 ml # Bowel Movements 1 Dressing: saturated Cardiovascular: RSR Respiratory: decreased breath sounds Abdomen: soft, non-tender, present bowel sounds, non-distended Extremities: no edema, no tenderness, no cyanosis Plan Problems: (1) Altered mental state (2) Signs and symptoms of anemia (3) Hypotension (4) Proteinuria (5) Generalized weakness (6) Protein-calorie malnutrition, severe Assessment & Plan: Pt presented on admission with multiple Pressure Injuries. Sacral DTPI (L)8cm x (W)8.5cm.Base of Pressure injury is indurated, maroon and tender when minimally palpated. DTPI L trochanter (L)10cm x (W)12cm. Base of pressure injury is maroon with surrounding non-blanchable erythema.Pt complained of tenderness when affected area minimally palpated. R Heel is boggy with non-blanchable erythema. L Heel is soft but easily blanchable . Tx.Plan. Apply Moisture Barrier Paste to Sacrum. Cover with Optifoam drsg. Change every 3 days and prn. Apply Cavilon Skin Barrier to R and L Trochanter. Cover each trochanter with Optifoam drsg. Change every 7 days and prn. Apply Cavilon Skin Barrier to both heels. Cover each heel with Optifoam drsg. Change every 7 days and prn. Reposition at least every 2hours or as tolerated. Off-load heels with Pillow. bmi 17 now alb low needs optimization breaking down dti noted DAILY ESTIMATED NEEDS: Needs based on underweight, cardiac/ 50kg 30-35 kcals/kg 9467-1329 total kcals 1.25-1.5 g protein/kg 63-75 g total protein 25-30 mL/kg 4896-8549 total fluid mLs NUTRITION DIAGNOSIS: Increased kcal/prot needs R/T underweight status as evidenced by pt @ 89% IBW w/ BMI of 18.5. CURRENT DIET:REGULAR PO DIET RECOMMENDATIONS: Regular/ texture as tolerated ADDITIONAL RECOMMENDATIONS: 1) Standing wt or calibrated bedscale wt for accurate CBW 2) Ensure Enlive BID w/ fair intake (350kcal/20g prot in 1 bottle) Add snacks to trays TID 3) Monitor BUN- trending up, pt on lasix. -> consider lowering lasix nohemi w/ fair PO intake 5) Wound healing: add MVI x 1, Vit C 250mg QD Jamal BID (7) Abnormal LFTs (8) Severe anemia Assessment & Plan: severe anemia. hx of bleeding held anticoagulation since prior right hemothorax s/p evacuation and vats transfusing prbc coags noted ddx includes possible GI hemorrhage. possible blood disorder protonix prior imaging reviewed as below abnormal lft's likely heme breakdown products thank you will follow with recs Gallbladder demonstrates a gallstone. This also reported on same day CT. Sonographic Camacho's sign is negative. Common bile duct measures 5 mm in diameter. No intrahepatic biliary ductal dilatation. Liver demonstrates normal echogenicity, no focal abnormality. Portal vein and hepatic veins are patent. Pancreas is unremarkable. The spleen demonstrates a complex upper pole cyst that measures 2.7 cm in diameter. The spleen is borderline enlarged. There are bilateral pleural effusions Left kidney measures 10.2 cm in length. Right kidney measures 9.2 cm length. Both kidneys demonstrate normal echogenicity. There is no hydronephrosis. No focal abnormality . Non-aneurysmal abdominal aorta . Impression: Cholelithiasis. Negative for dilated bile ducts 2.7 cm complex upper pole splenic cyst, also reported on prior imaging studies. Bilateral pleural effusions Chest: The lungs demonstrate a mosaic perfusion pattern, which is more striking than that seen previously. Some atelectasis and consolidation is seen involving both lower lobes. This appears similar on the right, slightly more extensive on the left. There is a moderate-sized right pleural effusion which appears similar to the previous study. There is a small left pleural effusion which is new since the previous study. Previous exam demonstrated a 1.5 cm opacity in the inferior right azygoesophageal recess. This is not evident currently although could be obscured by surrounding atelectatic lung. The heart is enlarged. There is a left chest pacemaker again demonstrated. No pericardial effusion. No mediastinal or hilar mass or adenopathy. Right lower pole thyroid calcification is again demonstrated. No axillary or chest wall mass or adenopathy. There are fairly profound degenerative changes of the bilateral shoulders. There is evidence of interim healing of previously demonstrated right rib fractures, nearly but not completely healed as some fracture lines persist. There are degenerative changes of the thoracic spine noted. Abdomen pelvis: What is probably a normal appendix is demonstrated. There is extensive colonic diverticulosis. No evidence of diverticulitis. The rectum is m ildly distended, mostly with gas with some stool as well. No small bowel distention or small bowel wall thickening. Numerous surgical clips are seen in the retroperitoneum and left side of the pelvis. The stomach and duodenum are unremarkable. The gallbladder contains a gallstone. No biliary ductal dilatation. The liver is mildly enlarged. The pancreas is unremarkable. The spleen is enlarged, measuring 14 cm long axis dimension. It demonstrates a complex upper pole cyst, also previously demonstrated the adrenals and kidneys are unremarkable. There is a retroaortic left renal vein incidentally noted. The uterus is absent.. The bladder is unremarkable. The bones demonstrate degenerative spondylosis changes. IMPRESSION: Cardiomegaly Unchanged moderate right pleural effusion, since June 2019. New small left pleural effusion Bilateral mosaic perfusion pattern, probably on the basis of pulmonary edema Bilateral basilar compressive atelectasis and possible consolidation Interim healing of previously demonstrated right rib fractures Previously demonstrated right azygoesophageal recess lesion is no longer evident, may have resolved or may be obscured by surrounding lung parenchyma. 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
[2020-03-21] MEDS: Ascorbic Acid 500mg tab ORAL SCH (18:03)
--- NOTE | 2020-03-21 18:47 | Internal Med Progress Note ---
Subjective Date of Service: Mar 21, 2020 Physician Name Edwadrs,Roshan Attending Physician Antonio Adrian MD Current Medications Medications (Trade) Dose Ordered Sig/Escobar Route PRN Reason Start Time Stop Time Status Last Admin Dose Admin Acetaminophen (Tylenol) 500 mg Q6H PRN ORAL Mild Pain (Pain Scale 1-3) 03/14/20 17:00 04/13/20 16:59 Acetaminophen (Tylenol) 650 mg Q6H PRN ORAL Temp >100.5 03/15/20 13:00 04/14/20 12:59 03/15/20 13:06 Amiodarone HCl (Cordarone) 200 mg DAILY ORAL 03/15/20 09:00 06/13/20 08:59 03/21/20 09:44 Ascorbic Acid (Vitamin C) 250 mg TWICE A DAY ORAL 03/21/20 18:00 04/20/20 17:59 03/21/20 18:03 Digoxin (Lanoxin) 0.125 mg DAILY ORAL 03/15/20 09:00 06/13/20 08:59 03/21/20 09:45 Furosemide (Lasix) 20 mg DAILY ORAL 03/15/20 09:00 04/14/20 08:59 03/21/20 09:45 Gabapentin (Neurontin) 300 mg THREE TIMES A DAY ORAL 03/15/20 09:00 04/14/20 08:59 03/21/20 17:19 Heparin Sodium (Porcine) (Heparin 5000 units/ml) 5,000 units EVERY 12 HOURS SUBQ 03/14/20 21:00 04/28/20 20:59 03/21/20 09:46 Levofloxacin 50 ml @ 50 mls/hr Q24H IVPB 03/18/20 21:00 03/25/20 20:59 03/20/20 21:13 Levothyroxine Sodium (Synthroid) 25 mcg DAILY@0630 ORAL 03/15/20 06:30 04/14/20 06:29 03/21/20 06:45 Metoprolol Tartrate (Lopressor) 25 mg Q12HR ORAL 03/14/20 21:00 06/12/20 20:59 03/18/20 08:45 Multivitamins (Multivitamins) 1 tab DAILY ORAL 03/22/20 09:00 04/21/20 08:59 Allergies: Coded Allergies: No Known Allergies (Unverified , 04/24/18) ROS Limited/Unobtainable: Yes Subjective 79 YO F with history of polycythemia vera and myelofibrosis admitted with generalized weakness. Now severe anemia. Cover for Int Med-DR Adrian Objective Last Vital Signs Date Time Temp Pulse Resp B/P (MAP) Pulse Ox O2 Delivery O2 Flow Rate FiO2 03/21/20 16:00 62 03/21/20 16:00 98.8 18 98/49 (65) 96 03/21/20 09:00 Room Air 03/14/20 16:17 99 Intake and Output 03/20/20 03/21/20 19:00 07:00 Intake Total 240 ml 120 ml Output Total 350 ml 400 ml Balance -110 ml -280 ml Intake Oral 240 ml 120 ml Output Urine Total 350 ml 400 ml # Bowel Movements 1 Objective PHYSICAL EXAMINATION: GENERAL: Patient is well-developed, well-nourished, ill-appearing female who is nonverbal. HEENT: Eyes pupils are equal and responsive to light and accommodation. Extraocular movements are intact. NECK: Supple. No lymphadenopathy. CHEST: Lungs are clear to auscultation bilaterally without wheezes or rales. CARDIOVASCULAR: Regular rhythm and rate. S1 and S2 are normal without murmurs, rubs, or gallops. ABDOMEN: Soft, nontender, and nondistended. Positive bowel sounds. No evidence of hepatosplenomegaly. Currently, no rebound or guarding noted. EXTREMITIES: Negative for clubbing, cyanosis, or edema. RECTAL: Not performed. GENITAL: Not performed. NEUROLOGIC: Cranial nerves II through XII grossly intact without focal deficits. Motor strength is 5/5 bilaterally. Deep tendon reflexes are 2+ plantar. Assessment/Plan Assessment/Plan ASSESSMENT: This is an 79-year-old female. 1. Severe anemia. 2. Generalized weakness. 3. Atrial fibrillation. 4. Polycythemia vera. 5. Myelofibrosis. 6. JAK2 mutation. 7. Myelodysplasia. 8. Cerebrovascular disease. 9. Obstructive sleep apnea. 10. Chronic obstructive pulmonary disease. 11. Coronary artery disease. 12. Congestive heart failure. 13. Sick sinus syndrome. TREATMENT: 1. Severe anemia. S/P transfusion 3 units of packed RBCs. Severe anemia is probably secondary to myelofibrosis secondary to polycythemia vera. 2. Atrial fibrillation/sick sinus syndrome. Patient is status post pacemaker implantation. A Cardiology consultation has been obtained with Dr. River Freitas. Follow recommendation of Cardiology. 3. Polycythemia vera/myelofibrosis/JAK2 mutation/myelodysplasia. 4. Cerebrovascular disease, status post cerebrovascular accident. 5. Obstructive sleep apnea. 6. Chronic obstructive pulmonary disease. 7. Coronary artery disease. 8. Congestive heart failure. Roshan Edwards MD Mar 21, 2020 18:47
--- NOTE | 2020-03-21 19:33 | NUR ---
NURSE NOTES: Patient in bed, resting at this time. On room air with no signs of distress or SOB. Liang in place and draining to gravity. IV intact and patent. Bed locked and in lowest position. Call light in reach. Bed alarm on. Will continue plan of care.
--- NOTE | 2020-03-21 19:34 | NUR ---
NURSE HAND-OFF REPORT: Important Events on Shift:[NA] Patient Status: [Full code] Diet: [regular] Pending Orders: [] Pending Results/Labs:[] Pending MD notification:[] Latest Vital Signs: Temperature 98.8 , Pulse 62 , B/P 98 /49 , Respiratory Rate 18 , O2 SAT 96 , Room Air, O2 Flow Rate . Vital Sign Comment: [] EKG Rhythm: SR/ A paced Rhythm change?: N MD Notified?: N -Dr Zena JOHNSON Response: Message left await call Latest Yepez Fall Score: 45 Fall Risk: High Risk Safety Measures: Call light Within Reach, Bed Alarm Zone 2, Side Rails Side Rails x3, Bed position Low and Locked. Fall Precautions: Yellow Socks Yellow Gown Patient Fall Education Report given to [IRA Ricardo].
[2020-03-21 20:00] VITALS: BP 106/57
[2020-03-22] VITALS: BP 99/57
[2020-03-22 04:00] VITALS: BP 109/57
[2020-03-22] MEDS: Levothyroxine 25mcg tab ORAL SCH (05:31)
--- NOTE | 2020-03-22 06:28 | NUR ---
NURSE HAND-OFF REPORT: Important Events on Shift: No acute events Patient Status: Stable Diet: Reg Pending Orders: N/A Pending Results/Labs: CRP, mag, phos, CMP, CBC Pending MD notification: N/A Latest Vital Signs: Temperature 99.0 , Pulse 63 , B/P 109 /57 , Respiratory Rate 17 , O2 SAT 98 , Room Air, O2 Flow Rate . Vital Sign Comment: N/A EKG Rhythm: SR w/ 1st degree HB Rhythm change?: N MD Notified?: MD Response: Latest Yepez Fall Score: 45 Fall Risk: High Risk Safety Measures: Call light Within Reach, Bed Alarm Zone 2, Side Rails Side Rails x3, Bed position Low and Locked. Fall Precautions: Yellow Socks Yellow Gown Patient Fall Education Addendum: 03/22/20 at 0743 by MYRTLE CATHERINE RN Report given to IRA Patrick
--- NOTE | 2020-03-22 07:39 | NUR ---
NURSE NOTES: Patient received from Haleigh ROTH. Patient alert and oriented x3. On room air, breathing unlabored and even, no s/s of respiratory distress, saturation WNL. Skin issues noted. No c/o pain. Liang catheter patent and intact draining well to gravity. IV site patent and intact on Right Wrist 20G SL. Bed in lowest position and locked. Call light and bedside table within reach.
[2020-03-22 08:00] VITALS: BP 96/46
[2020-03-22 08:16] LABS: HEMATOCRIT 23.1 % (37.0-47.0); HEMOGLOBIN 7.6 G/DL (12.0-16.0); MEAN CORPUSCULAR VOLUME 87 FL (80-99); PLATELET COUNT 237 K/UL (150-450); RED BLOOD COUNT 2.67 M/UL (4.20-5.40); RED CELL DISTRIBUTION WIDTH 17.8 % (11.6-14.8); WHITE BLOOD COUNT 3.5 K/UL (4.8-10.8)
[2020-03-22] MEDS: Ascorbic Acid 500mg tab ORAL SCH ×2 (08:29→16:55)
[2020-03-22] MEDS: Heparin 5000 units/ml inj SUBQ SCH ×2 (08:31→21:39)
[2020-03-22] MEDS: Digoxin 0.125mg tab ORAL SCH (08:32)
[2020-03-22] MEDS: Amiodarone 200mg tab ORAL SCH (08:34)
[2020-03-22 08:53] LABS: ALANINE AMINOTRANSFERASE 16 U/L (12-78); ALBUMIN 2.4 G/DL (3.4-5.0); ALBUMIN/GLOBULIN RATIO 0.6 (1.0-2.7); ALKALINE PHOSPHATASE 100 U/L (46-116); ANION GAP 3 mmol/L (5-15); ASPARTATE AMINO TRANSFERASE 15 U/L (15-37); BILIRUBIN,TOTAL 0.4 MG/DL (0.2-1.0); BLOOD UREA NITROGEN 29 mg/dL (7-18); CALCIUM 8.3 MG/DL (8.5-10.1); CARBON DIOXIDE 31 MMOL/L (21-32); CHLORIDE 108 MMOL/L (98-107); CREATININE 0.8 MG/DL (0.55-1.30); PHOSPHORUS 3.1 MG/DL (2.5-4.9); POTASSIUM 4.3 MMOL/L (3.5-5.1); SODIUM 142 MMOL/L (136-145)
--- NOTE | 2020-03-22 10:15 | Cardiac Electrophysiology PN ---
Assessment/Plan Assessment/Plan 1. Hypertension. On Lopressor 25 po bid( Held this Am for Low BP) 2. Status post [employer] pacer in 2010 and generator change by me in 2019. 3. Paroxysmal atrial fibrillation with rapid ventricular response. On digoxin, metoprolol and amiodarone. Off anticoagulation for recurrent bleeding and profound anemia. Dig level 0.9 4. Profound anemia with hemoglobin of 3 to 4. S/P 6 units of blood transfusion last admission in 01/2020 S/P 4 units of PRBC again this admission 5. History of hemothorax, status post VATS. 6. Pulmonary hypertension. 7. Myelofibrosis. 8. Positive blood Cx on Vancomycin DW RN Subjective Subjective RN at bedside. Blood Cx is positive for gram + and is on Vanco No CP or SOB. On RA Metoprolol was held as BP was 90/40 Objective Last 24 Hour Vital Signs Date Time Temp Pulse Resp B/P (MAP) Pulse Ox O2 Delivery O2 Flow Rate FiO2 03/22/20 09:00 Room Air 03/22/20 08:32 62 03/22/20 08:30 62 96/46 03/22/20 08:00 65 03/22/20 08:00 97.5 62 20 96/46 (63) 97 03/22/20 04:00 63 03/22/20 04:00 99.0 65 17 109/57 (74) 98 03/22/20 00:00 71 03/22/20 00:00 98.0 73 16 99/57 (71) 97 03/21/20 21:00 75 106/57 03/21/20 20:11 Room Air 03/21/20 20:00 99.5 75 17 106/57 (73) 95 03/21/20 19:05 74 03/21/20 16:00 62 03/21/20 16:00 98.8 64 18 98/49 (65) 96 03/21/20 12:00 62 03/21/20 12:00 96.6 61 18 96/45 (62) 100 Intake and Output 03/21/20 03/22/20 19:00 07:00 Intake Total 960 ml 120 ml Output Total 400 ml 300 ml Balance 560 ml -180 ml Intake Oral 960 ml 120 ml Output Urine Total 400 ml 300 ml Laboratory Tests Test 03/22/20 07:33 White Blood Count 3.5 K/UL (4.8-10.8) L Red Blood Count 2.67 M/UL (4.20-5.40) L Hemoglobin 7.6 G/DL (12.0-16.0) L Hematocrit 23.1 % (37.0-47.0) L Mean Corpuscular Volume 87 FL (80-99) Mean Corpuscular Hemoglobin 28.6 PG (27.0-31.0) Mean Corpuscular Hemoglobin Concent 33.0 G/DL (32.0-36.0) Red Cell Distribution Width 17.8 % (11.6-14.8) H Platelet Count 237 K/UL (150-450) Mean Platelet Volume 13.5 FL (6.5-10.1) H Neutrophils (%) (Auto) % (45.0-75.0) Lymphocytes (%) (Auto) % (20.0-45.0) Monocytes (%) (Auto) % (1.0-10.0) Eosinophils (%) (Auto) % (0.0-3.0) Basophils (%) (Auto) % (0.0-2.0) Differential Total Cells Counted 100 Neutrophils % (Manual) 62 % (45-75) Lymphocytes % (Manual) 29 % (20-45) Monocytes % (Manual) 3 % (1-10) Eosinophils % (Manual) 1 % (0-3) Basophils % (Manual) 0 % (0-2) Myelocytes % 2 % (0-0) H Band Neutrophils 3 % (0-8) Reactive Lymphocytes Occasional Platelet Estimate Decreased L Platelet Morphology Giant Platelets Occasional Hypochromasia 1+ Anisocytosis 1+ Sodium Level 142 MMOL/L (136-145) Potassium Level 4.3 MMOL/L (3.5-5.1) Chloride Level 108 MMOL/L (98-107) H Carbon Dioxide Level 31 MMOL/L (21-32) Anion Gap 3 mmol/L (5-15) L Blood Urea Nitrogen 29 mg/dL (7-18) H Creatinine 0.8 MG/DL (0.55-1.30) Estimat Glomerular Filtration Rate > 60 mL/min (>60) Glucose Level 84 MG/DL (74-106) Calcium Level 8.3 MG/DL (8.5-10.1) L Phosphorus Level 3.1 MG/DL (2.5-4.9) Magnesium Level 2.0 MG/DL (1.8-2.4) Total Bilirubin 0.4 MG/DL (0.2-1.0) Aspartate Amino Transf (AST/SGOT) 15 U/L (15-37) Alanine Aminotransferase (ALT/SGPT) 16 U/L (12-78) Alkaline Phosphatase 100 U/L (46-116) C-Reactive Protein, Quantitative 1.0 mg/dL (0.00-0.90) H Total Protein 6.2 G/DL (6.4-8.2) L Albumin 2.4 G/DL (3.4-5.0) L Globulin 3.8 g/dL Albumin/Globulin Ratio 0.6 (1.0-2.7) L Objective HEAD AND NECK: Showed no JVD. LUNGS: Clear. CARDIOVASCULAR: Regular S1 and S2 with no gallop. Pacemaker in left subclavian. ABDOMEN: Soft. EXTREMITIES: No pitting edema. LABORATORY AND DIAGNOSTIC DATA: Labs show white count of 3.8, hemoglobin was 5, improved to 5.6, and platelet count was 200. Sodium is 140, potassium 4.2, BUN of 23, creatinine 0.7, and glucose of 91. Troponin is negative x2. Digoxin level is 0.9. 1. HTN. Resume the patient's metoprolol 25 mg. 2. Status post [employer] pacemaker in 2010 and generator change by wa in 2018. The pacemaker will be interrogated for further evaluation. 3. Paroxysmal atrial fibrillation on digoxin, metoprolol, and amiodarone. Digoxin level is therapeutic, off anticoagulation for profound anemia. 4. Polycythemia vera and myelofibrosis with profound anemia with hemoglobin of 3.4 on last admission. On discharge in January, hemoglobin was up to 11, but today again hemoglobin is 5. The patient is receiving blood transfusion, followed by Hematology. 5. Status post VATS for history of hemothorax. 6. History of pulmonary hypertension. River Freitas MD Mar 22, 2020 10:15
--- NOTE | 2020-03-22 11:35 | Surgery Progress Note ---
Surgery Progress Note Subjective Symptoms: improved, tolerating diet, voiding well, passing flatus, BM Additional Comments states she feels better h/h stable no n/v Objective Last 24 Hour Vital Signs Date Time Temp Pulse Resp B/P (MAP) Pulse Ox O2 Delivery O2 Flow Rate FiO2 03/22/20 09:00 Room Air 03/22/20 08:32 62 03/22/20 08:30 62 96/46 03/22/20 08:00 65 03/22/20 08:00 97.5 62 20 96/46 (63) 97 03/22/20 04:00 63 03/22/20 04:00 99.0 65 17 109/57 (74) 98 03/22/20 00:00 71 03/22/20 00:00 98.0 73 16 99/57 (71) 97 03/21/20 21:00 75 106/57 03/21/20 20:11 Room Air 03/21/20 20:00 99.5 75 17 106/57 (73) 95 03/21/20 19:05 74 03/21/20 16:00 62 03/21/20 16:00 98.8 64 18 98/49 (65) 96 03/21/20 12:00 62 03/21/20 12:00 96.6 61 18 96/45 (62) 100 I&O Intake and Output 03/21/20 03/22/20 19:00 07:00 Intake Total 960 ml 120 ml Output Total 400 ml 300 ml Balance 560 ml -180 ml Intake Oral 960 ml 120 ml Output Urine Total 400 ml 300 ml Dressing: saturated Cardiovascular: RSR Respiratory: clear Abdomen: soft, flat, non-tender, present bowel sounds, non-distended Extremities: no edema, no tenderness, no cyanosis Laboratory Tests Test 03/22/20 07:33 White Blood Count 3.5 K/UL (4.8-10.8) L Red Blood Count 2.67 M/UL (4.20-5.40) L Hemoglobin 7.6 G/DL (12.0-16.0) L Hematocrit 23.1 % (37.0-47.0) L Mean Corpuscular Volume 87 FL (80-99) Mean Corpuscular Hemoglobin 28.6 PG (27.0-31.0) Mean Corpuscular Hemoglobin Concent 33.0 G/DL (32.0-36.0) Red Cell Distribution Width 17.8 % (11.6-14.8) H Platelet Count 237 K/UL (150-450) Mean Platelet Volume 13.5 FL (6.5-10.1) H Neutrophils (%) (Auto) % (45.0-75.0) Lymphocytes (%) (Auto) % (20.0-45.0) Monocytes (%) (Auto) % (1.0-10.0) Eosinophils (%) (Auto) % (0.0-3.0) Basophils (%) (Auto) % (0.0-2.0) Differential Total Cells Counted 100 Neutrophils % (Manual) 62 % (45-75) Lymphocytes % (Manual) 29 % (20-45) Monocytes % (Manual) 3 % (1-10) Eosinophils % (Manual) 1 % (0-3) Basophils % (Manual) 0 % (0-2) Myelocytes % 2 % (0-0) H Band Neutrophils 3 % (0-8) Reactive Lymphocytes Occasional Platelet Estimate Decreased L Platelet Morphology Giant Platelets Occasional Hypochromasia 1+ Anisocytosis 1+ Sodium Level 142 MMOL/L (136-145) Potassium Level 4.3 MMOL/L (3.5-5.1) Chloride Level 108 MMOL/L (98-107) H Carbon Dioxide Level 31 MMOL/L (21-32) Anion Gap 3 mmol/L (5-15) L Blood Urea Nitrogen 29 mg/dL (7-18) H Creatinine 0.8 MG/DL (0.55-1.30) Estimat Glomerular Filtration Rate > 60 mL/min (>60) Glucose Level 84 MG/DL (74-106) Calcium Level 8.3 MG/DL (8.5-10.1) L Phosphorus Level 3.1 MG/DL (2.5-4.9) Magnesium Level 2.0 MG/DL (1.8-2.4) Total Bilirubin 0.4 MG/DL (0.2-1.0) Aspartate Amino Transf (AST/SGOT) 15 U/L (15-37) Alanine Aminotransferase (ALT/SGPT) 16 U/L (12-78) Alkaline Phosphatase 100 U/L (46-116) C-Reactive Protein, Quantitative 1.0 mg/dL (0.00-0.90) H Total Protein 6.2 G/DL (6.4-8.2) L Albumin 2.4 G/DL (3.4-5.0) L Globulin 3.8 g/dL Albumin/Globulin Ratio 0.6 (1.0-2.7) L Plan Problems: (1) Altered mental state (2) Signs and symptoms of anemia (3) Hypotension (4) Proteinuria (5) Generalized weakness (6) Protein-calorie malnutrition, severe Assessment & Plan: Pt presented on admission with multiple Pressure Injuries. Sacral DTPI (L)8cm x (W)8.5cm.Base of Pressure injury is indurated, maroon and tender when minimally palpated. DTPI L trochanter (L)10cm x (W)12cm. Base of pressure injury is maroon with surrounding non-blanchable erythema.Pt complained of tenderness when affected area minimally palpated. R Heel is boggy with non-blanchable erythema. L Heel is soft but easily blanchable . Tx.Plan. Apply Moisture Barrier Paste to Sacrum. Cover with Optifoam drsg. Change every 3 days and prn. Apply Cavilon Skin Barrier to R and L Trochanter. Cover each trochanter with Optifoam drsg. Change every 7 days and prn. Apply Cavilon Skin Barrier to both heels. Cover each heel with Optifoam drsg. Change every 7 days and prn. Reposition at least every 2hours or as tolerated. Off-load heels with Pillow. bmi 17 now alb low needs optimization breaking down dti noted DAILY ESTIMATED NEEDS: Needs based on underweight, cardiac/ 50kg 30-35 kcals/kg 8472-2957 total kcals 1.25-1.5 g protein/kg 63-75 g total protein 25-30 mL/kg [id number] total fluid mLs NUTRITION DIAGNOSIS: Increased kcal/prot needs R/T underweight status as evidenced by pt @ 89% IBW w/ BMI of 18.5. CURRENT DIET:REGULAR PO DIET RECOMMENDATIONS: Regular/ texture as tolerated ADDITIONAL RECOMMENDATIONS: 1) Standing wt or calibrated bedscale wt for accurate CBW 2) Ensure Enlive BID w/ fair intake (350kcal/20g prot in 1 bottle) Add snacks to trays TID 3) Monitor BUN- trending up, pt on lasix. -> consider lowering lasix nohemi w/ fair PO intake 5) Wound healing: add MVI x 1, Vit C 250mg QD Jamal BID (7) Abnormal LFTs (8) Severe anemia Assessment & Plan: severe anemia. hx of bleeding held anticoagulation since prior right hemothorax s/p evacuation and vats transfusing prbc coags noted ddx includes possible GI hemorrhage. possible blood disorder protonix prior imaging reviewed as below abnormal lft's likely heme breakdown products thank you will follow with recs Gallbladder demonstrates a gallstone. This also reported on same day CT. Sonographic Camacho's sign is negative. Common bile duct measures 5 mm in diameter. No intrahepatic biliary ductal dilatation. Liver demonstrates normal echogenicity, no focal abnormality. Portal vein and hepatic veins are patent. Pancreas is unremarkable. The spleen demonstrates a complex upper pole cyst that measures 2.7 cm in diameter. The spleen is borderline enlarged. There are bilateral pleural effusions Left kidney measures 10.2 cm in length. Right kidney measures 9.2 cm length. Both kidneys demonstrate normal echogenicity. There is no hydronephrosis. No focal abnormality . Non-aneurysmal abdominal aorta . Impression: Cholelithiasis. Negative for dilated bile ducts 2.7 cm complex upper pole splenic cyst, also reported on prior imaging studies. Bilateral pleural effusions Chest: The lungs demonstrate a mosaic perfusion pattern, which is more striking than that seen previously. Some atelectasis and consolidation is seen involving both lower lobes. This appears similar on the right, slightly more extensive on the left. There is a moderate-sized right pleural effusion which appears similar to the previous study. There is a small left pleural effusion which is new since the previous study. Previous exam demonstrated a 1.5 cm opacity in the inferior right azygoesophageal recess. This is not evident currently although could be obscured by surrounding atelectatic lung. The heart is enlarged. There is a left chest pacemaker again demonstrated. No pericardial effusion. No mediastinal or hilar mass or adenopathy. Right lower pole thyroid calcification is again demonstrated. No axillary or chest wall mass or adenopathy. There are fairly profound degenerative changes of the bilateral shoulders. There is evidence of interim healing of previously demonstrated right rib fractures, nearly but not completely healed as some fracture lines persist. There are degenerative changes of the thoracic spine noted. Abdomen pelvis: What is probably a normal appendix is demonstrated. There is extensive colonic diverticulosis. No evidence of diverticulitis. The rectum is mildly distended, mostly with gas with some stool as well. No small bowel distention or small bowel wall thickening. Numerous surgical clips are seen in the retroperitoneum and left side of the pelvis. The stomach and duodenum are unremarkable. The gallbladder contains a gallstone. No biliary ductal dilatation. The liver is mildly enlarged. The pancreas is unremarkable. The spleen is enlarged, measuring 14 cm long axis dimension. It demonstrates a complex upper pole cyst, also previously demonstrated the adrenals and kidneys are unremarkable. There is a retroaortic left renal vein incidentally noted. The uterus is absent.. The bladder is unremarkable. The bones demonstrate degenerative spondylosis changes. IMPRESSION: Cardiomegaly Unchanged moderate right pleural effusion, since June 2019. New small left pleural effusion Bilateral mosaic perfusion pattern, probably on the basis of pulmonary edema Bilateral basilar compressive atelectasis and possible consolidation Interim healing of previously demonstrated right rib fractures Previously demonstrated right azygoesophageal recess lesion is no longer evident, may have resolved or may be obscured by surrounding lung parenchyma. 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
[2020-03-22 11:49] VITALS: BP 100/52
--- NOTE | 2020-03-22 11:51 | Nephrology Progress Note ---
Assessment/Plan Problem List: (1) Anemia (2) Paroxysmal A-fib (3) Pacemaker (4) Hypotension (5) Proteinuria Assessment Symptomatic anemia Hypotension Proteinuria, hypoalbuminemia Encephalopathy Plan March 22: Labs reviewed. Stable renal parameters. Continue per consultants. March 21: No labs drawn today. Remains stable from renal standpoint of view. Continue per consultants. March 20: Status quo. Stable from renal standpoint of view. Hemoglobin lower. Defer transfusion to property caretaker. March 19: Status quo. Labs reviewed. Renal parameters stable. Continue per consultants. March 18: Status quo. Stable from renal standpoint of view. Continue per consultants. March 17: Labs reviewed. Renal parameters stable. Hemoglobin higher March 16: No labs drawn today. Will check can panel tomorrow. Continue per consultants. March 15: Labs reviewed. Stable from renal standpoint of view. Continues to be anemic. Transfusion media monitor Keep the blood pressure and heart rate in check Per orders Subjective ROS Limited/Unobtainable: No Objective Objective Last 24 Hour Vital Signs Date Time Temp Pulse Resp B/P (MAP) Pulse Ox O2 Delivery O2 Flow Rate FiO2 03/22/20 09:00 Room Air 03/22/20 08:32 62 03/22/20 08:30 62 96/46 03/22/20 08:00 65 03/22/20 08:00 97.5 62 20 96/46 (63) 97 03/22/20 04:00 63 03/22/20 04:00 99.0 65 17 109/57 (74) 98 03/22/20 00:00 71 03/22/20 00:00 98.0 73 16 99/57 (71) 97 03/21/20 21:00 75 106/57 03/21/20 20:11 Room Air 03/21/20 20:00 99.5 75 17 106/57 (73) 95 03/21/20 19:05 74 03/21/20 16:00 62 03/21/20 16:00 98.8 64 18 98/49 (65) 96 03/21/20 12:00 62 03/21/20 12:00 96.6 61 18 96/45 (62) 100 Intake and Output 03/21/20 03/22/20 19:00 07:00 Intake Total 960 ml 120 ml Output Total 400 ml 300 ml Balance 560 ml -180 ml Intake Oral 960 ml 120 ml Output Urine Total 400 ml 300 ml Current Medications Medications (Trade) Dose Ordered Sig/Escobar Route PRN Reason Start Time Stop Time Status Last Admin Dose Admin Acetaminophen (Tylenol) 500 mg Q6H PRN ORAL Mild Pain (Pain Scale 1-3) 03/14/20 17:00 04/13/20 16:59 Acetaminophen (Tylenol) 650 mg Q6H PRN ORAL Temp >100.5 03/15/20 13:00 04/14/20 12:59 03/15/20 13:06 Amiodarone HCl (Cordarone) 200 mg DAILY ORAL 03/15/20 09:00 06/13/20 08:59 03/22/20 08:34 Ascorbic Acid (Vitamin C) 250 mg TWICE A DAY ORAL 03/21/20 18:00 04/20/20 17:59 03/22/20 08:29 Digoxin (Lanoxin) 0.125 mg DAILY ORAL 03/15/20 09:00 06/13/20 08:59 03/22/20 08:32 Gabapentin (Neurontin) 300 mg THREE TIMES A DAY ORAL 03/15/20 09:00 04/14/20 08:59 03/22/20 08:29 Heparin Sodium (Porcine) (Heparin 5000 units/ml) 5,000 units EVERY 12 HOURS SUBQ 03/14/20 21:00 04/28/20 20:59 03/22/20 08:31 Levofloxacin 50 ml @ 50 mls/hr Q24H IVPB 03/18/20 21:00 03/25/20 20:59 03/21/20 21:18 Levothyroxine Sodium (Synthroid) 25 mcg DAILY@0630 ORAL 03/15/20 06:30 04/14/20 06:29 03/22/20 05:31 Metoprolol Tartrate (Lopressor) 25 mg Q12HR ORAL 03/14/20 21:00 06/12/20 20:59 03/18/20 08:45 Multivitamins (Multivitamins) 1 tab DAILY ORAL 03/22/20 09:00 04/21/20 08:59 03/22/20 08:33 Laboratory Tests 03/22/20 07:33: White Blood Count 3.5L, Red Blood Count 2.67L, Hemoglobin 7.6L, Hematocrit 23.1L , Mean Corpuscular Volume 87, Mean Corpuscular Hemoglobin 28.6, Mean Corpuscular Hemoglobin Concent 33.0, Red Cell Distribution Width 17.8H, Platelet Count 237, Mean Platelet Volume 13.5H, Neutrophils (%) (Auto) , Lymphocytes (%) (Auto) , Monocytes (%) (Auto) , Eosinophils (%) (Auto) , Basophils (%) (Auto) , Differential Total Cells Counted 100, Neutrophils % (Manual) 62, Lymphocytes % (Manual) 29, Monocytes % (Manual) 3, Eosinophils % (Manual) 1, Basophils % (Manual) 0, Myelocytes % 2H, Band Neutrophils 3, Reactive Lymphocytes Occasional, Platelet Estimate DecreasedL, Platelet Morphology , Giant Platelets Occasional, Hypochromasia 1+, Anisocytosis 1+, Sodium Level 142, Potassium Level 4.3, Chloride Level 108H, Carbon Dioxide Level 31, Anion Gap 3L, Blood Urea Nitrogen 29H, Creatinine 0.8, Estimat Glomerular Filtration Rate > 60, Glucose Level 84, Calcium Level 8.3L, Phosphorus Level 3.1, Magnesium Level 2.0, Total Bilirubin 0.4, Aspartate Amino Transf (AST/SGOT) 15, Alanine Aminotransferase ( ALT/SGPT) 16, Alkaline Phosphatase 100, C-Reactive Protein, Quantitative 1.0H, Total Protein 6.2L, Albumin 2.4L, Globulin 3.8, Albumin/Globulin Ratio 0.6L Height (Feet): 5 Height (Inches): 2.00 Weight (Pounds): 93 General Appearance: no apparent distress Objective No change Sudhakar Griggs MD Mar 22, 2020 11:51
--- NOTE | 2020-03-22 13:15 | NUR ---
CASE MANAGEMENT:REVIEW 03/22/20 SI: H/H-7.6/23.1 IS: TRANSFUSE 1 UNIT PRBC'S : TELEMETRY STATUS DCP: HOME
[2020-03-22 15:50] VITALS: BP 97/54
--- NOTE | 2020-03-22 18:20 | Internal Med Progress Note ---
Subjective Date of Service: Mar 22, 2020 Physician Name Roshan Edwards Attending Physician Antonio Adrian MD Current Medications Medications (Trade) Dose Ordered Sig/Escobar Route PRN Reason Start Time Stop Time Status Last Admin Dose Admin Acetaminophen (Tylenol) 500 mg Q6H PRN ORAL Mild Pain (Pain Scale 1-3) 03/14/20 17:00 04/13/20 16:59 Acetaminophen (Tylenol) 650 mg Q6H PRN ORAL Temp >100.5 03/15/20 13:00 04/14/20 12:59 03/15/20 13:06 Amiodarone HCl (Cordarone) 200 mg DAILY ORAL 03/15/20 09:00 06/13/20 08:59 03/22/20 08:34 Ascorbic Acid (Vitamin C) 250 mg TWICE A DAY ORAL 03/21/20 18:00 04/20/20 17:59 03/22/20 16:55 Digoxin (Lanoxin) 0.125 mg DAILY ORAL 03/15/20 09:00 06/13/20 08:59 03/22/20 08:32 Gabapentin (Neurontin) 300 mg THREE TIMES A DAY ORAL 03/15/20 09:00 04/14/20 08:59 03/22/20 16:55 Heparin Sodium (Porcine) (Heparin 5000 units/ml) 5,000 units EVERY 12 HOURS SUBQ 03/14/20 21:00 04/28/20 20:59 03/22/20 08:31 Levofloxacin 50 ml @ 50 mls/hr Q24H IVPB 03/18/20 21:00 03/25/20 20:59 03/21/20 21:18 Levothyroxine Sodium (Synthroid) 25 mcg DAILY@0630 ORAL 03/15/20 06:30 04/14/20 06:29 03/22/20 05:31 Metoprolol Tartrate (Lopressor) 25 mg Q12HR ORAL 03/14/20 21:00 06/12/20 20:59 03/18/20 08:45 Multivitamins (Multivitamins) 1 tab DAILY ORAL 03/22/20 09:00 04/21/20 08:59 03/22/20 08:33 Allergies: Coded Allergies: No Known Allergies (Unverified , 04/24/18) ROS Limited/Unobtainable: Yes Subjective 79 YO F with history of polycythemia vera and myelofibrosis admitted with generalized weakness. Now severe anemia. Cover for Int Med-DR Adrian Objective Last Vital Signs Date Time Temp Pulse Resp B/P (MAP) Pulse Ox O2 Delivery O2 Flow Rate FiO2 03/22/20 16:00 60 03/22/20 15:50 97.5 20 97/54 (68) 97 03/22/20 09:00 Room Air 03/14/20 16:17 99 Laboratory Tests Test 03/22/20 07:33 White Blood Count 3.5 K/UL (4.8-10.8) L Red Blood Count 2.67 M/UL (4.20-5.40) L Hemoglobin 7.6 G/DL (12.0-16.0) L Hematocrit 23.1 % (37.0-47.0) L Mean Corpuscular Volume 87 FL (80-99) Mean Corpuscular Hemoglobin 28.6 PG (27.0-31.0) Mean Corpuscular Hemoglobin Concent 33.0 G/DL (32.0-36.0) Red Cell Distribution Width 17.8 % (11.6-14.8) H Platelet Count 237 K/UL (150-450) Mean Platelet Volume 13.5 FL (6.5-10.1) H Neutrophils (%) (Auto) % (45.0-75.0) Lymphocytes (%) (Auto) % (20.0-45.0) Monocytes (%) (Auto) % (1.0-10.0) Eosinophils (%) (Auto) % (0.0-3.0) Basophils (%) (Auto) % (0.0-2.0) Differential Total Cells Counted 100 Neutrophils % (Manual) 62 % (45-75) Lymphocytes % (Manual) 29 % (20-45) Monocytes % (Manual) 3 % (1-10) Eosinophils % (Manual) 1 % (0-3) Basophils % (Manual) 0 % (0-2) Myelocytes % 2 % (0-0) H Band Neutrophils 3 % (0-8) Reactive Lymphocytes Occasional Platelet Estimate Decreased L Platelet Morphology Giant Platelets Occasional Hypochromasia 1+ Anisocytosis 1+ Sodium Level 142 MMOL/L (136-145) Potassium Level 4.3 MMOL/L (3.5-5.1) Chloride Level 108 MMOL/L (98-107) H Carbon Dioxide Level 31 MMOL/L (21-32) Anion Gap 3 mmol/L (5-15) L Blood Urea Nitrogen 29 mg/dL (7-18) H Creatinine 0.8 MG/DL (0.55-1.30) Estimat Glomerular Filtration Rate > 60 mL/min (>60) Glucose Level 84 MG/DL (74-106) Calcium Level 8.3 MG/DL (8.5-10.1) L Phosphorus Level 3.1 MG/DL (2.5-4.9) Magnesium Level 2.0 MG/DL (1.8-2.4) Total Bilirubin 0.4 MG/DL (0.2-1.0) Aspartate Amino Transf (AST/SGOT) 15 U/L (15-37) Alanine Aminotransferase (ALT/SGPT) 16 U/L (12-78) Alkaline Phosphatase 100 U/L (46-116) C-Reactive Protein, Quantitative 1.0 mg/dL (0.00-0.90) H Total Protein 6.2 G/DL (6.4-8.2) L Albumin 2.4 G/DL (3.4-5.0) L Globulin 3.8 g/dL Albumin/Globulin Ratio 0.6 (1.0-2.7) L Intake and Output 03/21/20 03/22/20 19:00 07:00 Intake Total 960 ml 120 ml Output Total 400 ml 300 ml Balance 560 ml -180 ml Intake Oral 960 ml 120 ml Output Urine Total 400 ml 300 ml Objective PHYSICAL EXAMINATION: GENERAL: Patient is well-developed, well-nourished, ill-appearing female who is nonverbal. HEENT: Eyes pupils are equal and responsive to light and accommodation. Extraocular movements are intact. NECK: Supple. No lymphadenopathy. CHEST: Lungs are clear to auscultation bilaterally without wheezes or rales. CARDIOVASCULAR: Regular rhythm and rate. S1 and S2 are normal without murmurs, rubs, or gallops. ABDOMEN: Soft, nontender, and nondistended. Positive bowel sounds. No evidence of hepatosplenomegaly. Currently, no rebound or guarding noted. EXTREMITIES: Negative for clubbing, cyanosis, or edema. RECTAL: Not performed. GENITAL: Not performed. NEUROLOGIC: Cranial nerves II through XII grossly intact without focal deficits. Motor strength is 5/5 bilaterally. Deep tendon reflexes are 2+ plantar. Assessment/Plan Assessment/Plan ASSESSMENT: This is an 79-year-old female. 1. Severe anemia. 2. Generalized weakness. 3. Atrial fibrillation. 4. Polycythemia vera. 5. Myelofibrosis. 6. JAK2 mutation. 7. Myelodysplasia. 8. Cerebrovascular disease. 9. Obstructive sleep apnea. 10. Chronic obstructive pulmonary disease. 11. Coronary artery disease. 12. Congestive heart failure. 13. Sick sinus syndrome. TREATMENT: 1. Severe anemia. S/P transfusion 4 units of packed RBCs. Severe anemia is probably secondary to myelofibrosis secondary to polycythemia vera. 2. Atrial fibrillation/sick sinus syndrome. Patient is status post pacemaker implantation. A Cardiology consultation has been obtained with Dr. River Freitas. Follow recommendation of Cardiology. 3. Polycythemia vera/myelofibrosis/JAK2 mutation/myelodysplasia. 4. Cerebrovascular disease, status post cerebrovascular accident. 5. Obstructive sleep apnea. 6. Chronic obstructive pulmonary disease. 7. Coronary artery disease. 8. Congestive heart failure. Roshan Edwards MD Mar 22, 2020 18:20
--- NOTE | 2020-03-22 18:20 | NUR ---
NURSE HAND-OFF REPORT: Important Events on Shift:[Hgb of 7.6, transfused 1unit PRBC today] Patient Status: [Vital signs stale, Alert, FC,] Diet: [Regular diet] Pending Orders: [] Pending Results/Labs:[] Pending MD notification:[] Latest Vital Signs: Temperature 97.5 , Pulse 60 , B/P 97 /54 , Respiratory Rate 20 , O2 SAT 97 , Room Air, O2 Flow Rate . Vital Sign Comment: [] EKG Rhythm: A pacing, SR c 1st AVB Rhythm change?: N Notified?: N -Dr Zena JOHNSON Response: Message left await call Latest Yepez Fall Score: 45 Fall Risk: High Risk Safety Measures: Call light Within Reach, Bed Alarm Zone 2, Side Rails Side Rails x3, Bed position Low and Locked. Fall Precautions: Yellow Socks Yellow Gown Patient Fall Education Report given to []. Addendum: 03/22/20 at 1915 by Dranell Ruff RN Patient report given to Haleigh ROTH
--- NOTE | 2020-03-22 19:32 | NUR ---
NURSE NOTES: Patient in bed, resting at this time. On room air, breathing unlabored, no signs of distress. Liang in place and draining to gravity. IV intact and patent. Bed locked and in lowest position. Call light in reach. Bed alarm on. Will continue plan of care.
[2020-03-22 20:00] VITALS: BP 100/57
[2020-03-23] VITALS: BP 96/52
[2020-03-23 04:00] VITALS: BP 101/55
[2020-03-23] MEDS: Levothyroxine 25mcg tab ORAL SCH (05:38)
--- NOTE | 2020-03-23 06:25 | NUR ---
NURSE HAND-OFF REPORT: Important Events on Shift: No acute events Patient Status: Stable Diet: Reg Pending Orders: N/A Pending Results/Labs: CBC, CMP, Mag, Phos Pending MD notification: N/A Latest Vital Signs: Temperature 97.4 , Pulse 81 , B/P 101 /55 , Respiratory Rate 18 , O2 SAT 96 , Room Air, O2 Flow Rate . Vital Sign Comment: N/A EKG Rhythm: Sinus Rhythm Rhythm change?: N MD Notified?: N MD Response: Latest Yepez Fall Score: 45 Fall Risk: High Risk Safety Measures: Call light Within Reach, Bed Alarm Zone 2, Side Rails Side Rails x3, Bed position Low and Locked. Fall Precautions: Yellow Socks Yellow Gown Patient Fall Education
[2020-03-23 07:12] LABS: ALANINE AMINOTRANSFERASE 14 U/L (12-78); ALBUMIN 2.3 G/DL (3.4-5.0); ALBUMIN/GLOBULIN RATIO 0.7 (1.0-2.7); ALKALINE PHOSPHATASE 98 U/L (46-116); ANION GAP 2 mmol/L (5-15); ASPARTATE AMINO TRANSFERASE 17 U/L (15-37); BILIRUBIN,TOTAL 0.5 MG/DL (0.2-1.0); BLOOD UREA NITROGEN 31 mg/dL (7-18); CALCIUM 8.4 MG/DL (8.5-10.1); CARBON DIOXIDE 31 MMOL/L (21-32); CHLORIDE 107 MMOL/L (98-107); CREATININE 0.8 MG/DL (0.55-1.30); POTASSIUM 4.4 MMOL/L (3.5-5.1); SODIUM 140 MMOL/L (136-145)
--- NOTE | 2020-03-23 07:15 | NUR ---
NURSE NOTES: Received report from IRA Ricardo. Patient observed to be awake, alert, and oriented x4. Seen lying in bed with hob elevated currently on room air, no s.sx of SOB/Distress, no c/o any pain or discomfort. Patient with orders for discharge with home health. Patient with pacemaker on L upper chest. With iv located on RWrist gauge20 inplace and intact dressing dry. Bed placed on lowest and locked, call light placed within reach and will continue to monitor for any changes in patient's condition.
[2020-03-23 07:26] LABS: BASOPHILS % (AUTO) 5.8 % (0.0-2.0); EOSINOPHILS % (AUTO) 1.1 % (0.0-3.0); HEMATOCRIT 26.8 % (37.0-47.0); HEMOGLOBIN 8.8 G/DL (12.0-16.0); LYMPHOCYTES % (AUTO) 24.6 % (20.0-45.0); MEAN CORPUSCULAR VOLUME 87 FL (80-99); MONOCYTES % (AUTO) 8.6 % (1.0-10.0); PLATELET COUNT 225 K/UL (150-450); RED BLOOD COUNT 3.09 M/UL (4.20-5.40); RED CELL DISTRIBUTION WIDTH 15.9 % (11.6-14.8); WHITE BLOOD COUNT 3.6 K/UL (4.8-10.8)
[2020-03-23 08:00] VITALS: BP 94/49
[2020-03-23] MEDS: Ascorbic Acid 500mg tab ORAL SCH (08:39)
[2020-03-23] MEDS: Heparin 5000 units/ml inj SUBQ SCH (08:39)
[2020-03-23] MEDS: Amiodarone 200mg tab ORAL SCH (08:39)
[2020-03-23] MEDS: Digoxin 0.125mg tab ORAL SCH (08:40)
--- NOTE | 2020-03-23 11:50 | NUR ---
NURSE NOTES: removed valdez catheter will monitor for any urinary output
[2020-03-23 12:00] VITALS: BP 92/54
--- NOTE | 2020-03-23 12:56 | Internal Med Progress Note ---
Subjective Date of Service: Mar 23, 2020 Physician Name Roshan Edwards Attending Physician Antonio Adrian MD Current Medications Medications (Trade) Dose Ordered Sig/Escobar Route PRN Reason Start Time Stop Time Status Last Admin Dose Admin Acetaminophen (Tylenol) 500 mg Q6H PRN ORAL Mild Pain (Pain Scale 1-3) 03/14/20 17:00 04/13/20 16:59 Acetaminophen (Tylenol) 650 mg Q6H PRN ORAL Temp >100.5 03/15/20 13:00 04/14/20 12:59 03/15/20 13:06 Amiodarone HCl (Cordarone) 200 mg DAILY ORAL 03/15/20 09:00 06/13/20 08:59 03/23/20 08:39 Ascorbic Acid (Vitamin C) 250 mg TWICE A DAY ORAL 03/21/20 18:00 04/20/20 17:59 03/23/20 08:39 Digoxin (Lanoxin) 0.125 mg DAILY ORAL 03/15/20 09:00 06/13/20 08:59 03/23/20 08:40 Gabapentin (Neurontin) 300 mg THREE TIMES A DAY ORAL 03/15/20 09:00 04/14/20 08:59 03/23/20 12:24 Heparin Sodium (Porcine) (Heparin 5000 units/ml) 5,000 units EVERY 12 HOURS SUBQ 03/14/20 21:00 04/28/20 20:59 03/23/20 08:39 Levofloxacin 50 ml @ 50 mls/hr Q24H IVPB 03/18/20 21:00 03/25/20 20:59 03/22/20 21:29 Levothyroxine Sodium (Synthroid) 25 mcg DAILY@0630 ORAL 03/15/20 06:30 04/14/20 06:29 03/23/20 05:38 Metoprolol Tartrate (Lopressor) 25 mg Q12HR ORAL 03/14/20 21:00 06/12/20 20:59 03/18/20 08:45 Multivitamins (Multivitamins) 1 tab DAILY ORAL 03/22/20 09:00 04/21/20 08:59 03/23/20 08:39 Allergies: Coded Allergies: No Known Allergies (Unverified , 04/24/18) ROS Limited/Unobtainable: Yes Subjective 79 YO F with history of polycythemia vera and myelofibrosis admitted with generalized weakness. Now severe anemia. Cover for Int Germán-DR Adrian Objective Last Vital Signs Date Time Temp Pulse Resp B/P (MAP) Pulse Ox O2 Delivery O2 Flow Rate FiO2 03/23/20 09:00 Room Air 03/23/20 08:40 62 94/49 03/23/20 08:00 97.7 20 98 03/14/20 16:17 99 Laboratory Tests Test 03/23/20 06:26 White Blood Count 3.6 K/UL (4.8-10.8) L Red Blood Count 3.09 M/UL (4.20-5.40) L Hemoglobin 8.8 G/DL (12.0-16.0) L Hematocrit 26.8 % (37.0-47.0) L Mean Corpuscular Volume 87 FL (80-99) Mean Corpuscular Hemoglobin 28.5 PG (27.0-31.0) Mean Corpuscular Hemoglobin Concent 32.9 G/DL (32.0-36.0) Red Cell Distribution Width 15.9 % (11.6-14.8) H Platelet Count 225 K/UL (150-450) Mean Platelet Volume 11.6 FL (6.5-10.1) H Neutrophils (%) (Auto) 60.0 % (45.0-75.0) Lymphocytes (%) (Auto) 24.6 % (20.0-45.0) Monocytes (%) (Auto) 8.6 % (1.0-10.0) Eosinophils (%) (Auto) 1.1 % (0.0-3.0) Basophils (%) (Auto) 5.8 % (0.0-2.0) H Sodium Level 140 MMOL/L (136-145) Potassium Level 4.4 MMOL/L (3.5-5.1) Chloride Level 107 MMOL/L (98-107) Carbon Dioxide Level 31 MMOL/L (21-32) Anion Gap 2 mmol/L (5-15) L Blood Urea Nitrogen 31 mg/dL (7-18) H Creatinine 0.8 MG/DL (0.55-1.30) Estimat Glomerular Filtration Rate > 60 mL/min (>60) Glucose Level 96 MG/DL (74-106) Calcium Level 8.4 MG/DL (8.5-10.1) L Total Bilirubin 0.5 MG/DL (0.2-1.0) Aspartate Amino Transf (AST/SGOT) 17 U/L (15-37) Alanine Aminotransferase (ALT/SGPT) 14 U/L (12-78) Alkaline Phosphatase 98 U/L (46-116) Total Protein 5.8 G/DL (6.4-8.2) L Albumin 2.3 G/DL (3.4-5.0) L Globulin 3.5 g/dL Albumin/Globulin Ratio 0.7 (1.0-2.7) L Intake and Output 03/22/20 03/23/20 19:00 07:00 Intake Total 200 ml Output Total 701 ml 500 ml Balance -701 ml -300 ml Intake Oral 200 ml Output Urine Total 700 ml 500 ml Stool Total 1 ml # Voids 1 # Bowel Movements 1 Objective PHYSICAL EXAMINATION: GENERAL: Patient is well-developed, well-nourished, ill-appearing female who is nonverbal. HEENT: Eyes pupils are equal and responsive to light and accommodation. Extraocular movements are intact. NECK: Supple. No lymphadenopathy. CHEST: Lungs are clear to auscultation bilaterally without wheezes or rales. CARDIOVASCULAR: Regular rhythm and rate. S1 and S2 are normal without murmurs, rubs, or gallops. ABDOMEN: Soft, nontender, and nondistended. Positive bowel sounds. No evidence of hepatosplenomegaly. Currently, no rebound or guarding noted. EXTREMITIES: Negative for clubbing, cyanosis, or edema. RECTAL: Not performed. GENITAL: Not performed. NEUROLOGIC: Cranial nerves II through XII grossly intact without focal deficits. Motor strength is 5/5 bilaterally. Deep tendon reflexes are 2+ plantar. Assessment/Plan Assessment/Plan ASSESSMENT: This is an 79-year-old female. 1. Severe anemia. 2. Generalized weakness. 3. Atrial fibrillation. 4. Polycythemia vera. 5. Myelofibrosis. 6. JAK2 mutation. 7. Myelodysplasia. 8. Cerebrovascular disease. 9. Obstructive sleep apnea. 10. Chronic obstructive pulmonary disease. 11. Coronary artery disease. 12. Congestive heart failure. 13. Sick sinus syndrome. TREATMENT: 1. Severe anemia. S/P transfusion 4 units of packed RBCs. Severe anemia is probably secondary to myelofibrosis secondary to polycythemia vera. 2. Atrial fibrillation/sick sinus syndrome. Patient is status post pacemaker implantation. A Cardiology consultation has been obtained with Dr. River Freitas. Follow recommendation of Cardiology. 3. Polycythemia vera/myelofibrosis/JAK2 mutation/myelodysplasia. 4. Cerebrovascular disease, status post cerebrovascular accident. 5. Obstructive sleep apnea. 6. Chronic obstructive pulmonary disease. 7. Coronary artery disease. 8. Congestive heart failure. 9. Hospice eval-D/W daughter in law Roshan Black MD Mar 23, 2020 12:56
--- NOTE | 2020-03-23 12:59 | Surgery Progress Note ---
Surgery Progress Note Subjective Symptoms: improved, pain absent, tolerating diet, passing flatus Objective Last 24 Hour Vital Signs Date Time Temp Pulse Resp B/P (MAP) Pulse Ox O2 Delivery O2 Flow Rate FiO2 03/23/20 09:00 Room Air 03/23/20 08:40 62 94/49 03/23/20 08:40 62 03/23/20 08:00 60 03/23/20 08:00 97.7 62 20 94/49 (64) 98 03/23/20 04:00 97.4 81 18 101/55 (70) 96 03/23/20 03:14 62 03/23/20 00:00 98.0 74 18 96/52 (67) 96 03/22/20 23:22 65 03/22/20 21:00 Room Air 03/22/20 21:00 70 100/57 03/22/20 20:00 97.7 70 18 100/57 (71) 96 03/22/20 19:36 67 03/22/20 16:00 60 03/22/20 15:50 97.5 68 20 97/54 (68) 97 I&O Intake and Output 03/22/20 03/23/20 19:00 07:00 Intake Total 200 ml Output Total 701 ml 500 ml Balance -701 ml -300 ml Intake Oral 200 ml Output Urine Total 700 ml 500 ml Stool Total 1 ml # Voids 1 # Bowel Movements 1 Dressing: saturated Wound: clean Cardiovascular: RSR Respiratory: clear, decreased breath sounds Abdomen: soft, non-tender, present bowel sounds, non-distended Extremities: no edema, no tenderness, no cyanosis Laboratory Tests Test 03/23/20 06:26 White Blood Count 3.6 K/UL (4.8-10.8) L Red Blood Count 3.09 M/UL (4.20-5.40) L Hemoglobin 8.8 G/DL (12.0-16.0) L Hematocrit 26.8 % (37.0-47.0) L Mean Corpuscular Volume 87 FL (80-99) Mean Corpuscular Hemoglobin 28.5 PG (27.0-31.0) Mean Corpuscular Hemoglobin Concent 32.9 G/DL (32.0-36.0) Red Cell Distribution Width 15.9 % (11.6-14.8) H Platelet Count 225 K/UL (150-450) Mean Platelet Volume 11.6 FL (6.5-10.1) H Neutrophils (%) (Auto) 60.0 % (45.0-75.0) Lymphocytes (%) (Auto) 24.6 % (20.0-45.0) Monocytes (%) (Auto) 8.6 % (1.0-10.0) Eosinophils (%) (Auto) 1.1 % (0.0-3.0) Basophils (%) (Auto) 5.8 % (0.0-2.0) H Sodium Level 140 MMOL/L (136-145) Potassium Level 4.4 MMOL/L (3.5-5.1) Chloride Level 107 MMOL/L (98-107) Carbon Dioxide Level 31 MMOL/L (21-32) Anion Gap 2 mmol/L (5-15) L Blood Urea Nitrogen 31 mg/dL (7-18) H Creatinine 0.8 MG/DL (0.55-1.30) Estimat Glomerular Filtration Rate > 60 mL/min (>60) Glucose Level 96 MG/DL (74-106) Calcium Level 8.4 MG/DL (8.5-10.1) L Total Bilirubin 0.5 MG/DL (0.2-1.0) Aspartate Amino Transf (AST/SGOT) 17 U/L (15-37) Alanine Aminotransferase (ALT/SGPT) 14 U/L (12-78) Alkaline Phosphatase 98 U/L (46-116) Total Protein 5.8 G/DL (6.4-8.2) L Albumin 2.3 G/DL (3.4-5.0) L Globulin 3.5 g/dL Albumin/Globulin Ratio 0.7 (1.0-2.7) L Plan Problems: (1) Altered mental state (2) Signs and symptoms of anemia (3) Hypotension (4) Proteinuria (5) Generalized weakness (6) Protein-calorie malnutrition, severe Assessment & Plan: Pt presented on admission with multiple Pressure Injuries. Sacral DTPI (L)8cm x (W)8.5cm.Base of Pressure injury is indurated, maroon and tender when minimally palpated. DTPI L trochanter (L)10cm x (W)12cm. Base of pressure injury is maroon with surrounding non-blanchable erythema.Pt complained of tenderness when affected area minimally palpated. R Heel is boggy with non-blanchable erythema. L Heel is soft but easily blanchable . Tx.Plan. Apply Moisture Barrier Paste to Sacrum. Cover with Optifoam drsg. Change every 3 days and prn. Apply Cavilon Skin Barrier to R and L Trochanter. Cover each trochanter with Optifoam drsg. Change every 7 days and prn. Apply Cavilon Skin Barrier to both heels. Cover each heel with Optifoam drsg. Change every 7 days and prn. Reposition at least every 2hours or as tolerated. Off-load heels with Pillow. bmi 17 now alb low needs optimization breaking down dti noted DAILY ESTIMATED NEEDS: Needs based on underweight, cardiac/ 50kg 30-35 kcals/kg 3624-4928 total kcals 1.25-1.5 g protein/kg 63-75 g total protein 25-30 mL/kg 3652-4109 total fluid mLs NUTRITION DIAGNOSIS: Increased kcal/prot needs R/T underweight status as evidenced by pt @ 89% IBW w/ BMI of 18.5. CURRENT DIET:REGULAR PO DIET RECOMMENDATIONS: Regular/ texture as tolerated ADDITIONAL RECOMMENDATIONS: 1) Standing wt or calibrated bedscale wt for accurate CBW 2) Ensure Enlive BID w/ fair intake (350kcal/20g prot in 1 bottle) Add snacks to trays TID 3) Monitor BUN- trending up, pt on lasix. -> consider lowering lasix nohemi w/ fair PO intake 5) Wound healing: add MVI x 1, Vit C 250mg QD Jamal BID (7) Abnormal LFTs (8) Severe anemia Assessment & Plan: severe anemia. hx of bleeding held anticoagulation since prior right hemothorax s/p evacuation and vats transfusing prbc coags noted ddx includes possible GI hemorrhage. possible blood disorder protonix prior imaging reviewed as below abnormal lft's likely heme breakdown products thank you will follow with recs Gallbladder demonstrates a gallstone. This also reported on same day CT. Sonographic Camacho's sign is negative. Common bile duct measures 5 mm in diameter. No intrahepatic biliary ductal dilatation. Liver demonstrates normal echogenicity, no focal abnormality. Portal vein and hepatic veins are patent. Pancreas is unremarkable. The spleen demonstrates a complex upper pole cyst that measures 2.7 cm in diameter. The spleen is borderline enlarged. There are bilateral pleural effusions Left kidney measures 10.2 cm in length. Right kidney measures 9.2 cm length. Both kidneys demonstrate normal echogenicity. There is no hydronephrosis. No focal abnormality . Non-aneurysmal abdominal aorta . Impression: Cholelithiasis. Negative for dilated bile ducts 2.7 cm complex upper pole splenic cyst, also reported on prior imaging studies. Bilateral pleural effusions Chest: The lungs demonstrate a mosaic perfusion pattern, which is more striking than that seen previously. Some atelectasis and consolidation is seen involving both lower lobes. This appears similar on the right, slightly more extensive on the left. There is a moderate-sized right pleural effusion which appears similar to the previous study. There is a small left pleural effusion which is new since the previous study. Previous exam demonstrated a 1.5 cm opacity in the inferior right azygoesophageal recess. This is not evident currently although could be obscured by surrounding atelectatic lung. The heart is enlarged. There is a left chest pacemaker again demonstrated. No pericardial effusion. No mediastinal or hilar mass or adenopathy. Right lower pole thyroid calcification is again demonstrated. No axillary or chest wall mass or adenopathy. There are fairly profound degenerative changes of the bilateral shoulders. There is evidence of interim healing of previously demonstrated right rib fractures, nearly but not completely healed as some fracture lines persist. There are degenerative changes of the thoracic spine noted. Abdomen pelvis: What is probably a normal appendix is demonstrated. There is extensive colonic diverticulosis. No evidence of diverticulitis. The rectum is mildly distended, mostly with gas with some stool as well. No small bowel distention or small bowel wall thickening. Numerous surgical clips are seen in the retroperitoneum and left side of the pelvis. The stomach and duodenum are unremarkable. The gallbladder contains a gallstone. No biliary ductal dilatation. The liver is mildly enlarged. The pancreas is unremarkable. The spleen is enlarged, measuring 14 cm long axis dimension. It demonstrates a complex upper pole cyst, also previously demonstrated the adrenals and kidneys are unremarkable. There is a retroaortic left renal vein incidentally noted. The uterus is absent.. The bladder is unremarkable. The bones demonstrate degenerative spondylosis changes. IMPRESSION: Cardiomegaly Unchanged moderate right pleural effusion, since June 2019. New small left pleural effusion Bilateral mosaic perfusion pattern, probably on the basis of pulmonary edema Bilateral basilar compressive atelectasis and possible consolidation Interim healing of previously demonstrated right rib fractures Previously demonstrated right azygoesophageal recess lesion is no longer evident, may have resolved or may be obscured by surrounding lung parenchyma. Cholelithiasis Hepatomegaly Splenomegaly Splenic cystic lesion, unchanged from prior exam Postsurgical changes as described, including pacemaker, evidence of prior hysterectomy, evidence of prior pelvic lymph node dissection, prior hysterectomy (9) Symptomatic anemia (10) ACS (acute coronary syndrome) (11) Pyelonephritis (12) CAD (coronary artery disease) (13) COPD (chronic obstructive pulmonary disease) (14) positional vertigo (15) KELVIN (obstructive sleep apnea) (16) Peripheral neuropathy (17) Myelofibrosis (18) JAK2 V617F mutation (19) UTI (urinary tract infection) (20) Polycythemia vera (21) Pacemaker (22) Acute encephalopathy (23) Chronic anticoagulation (24) RLL pneumonia (25) Hematothorax (26) Thoracostomy tube in place (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
--- NOTE | 2020-03-23 13:59 | Nephrology Progress Note ---
Assessment/Plan Problem List: (1) Anemia (2) Paroxysmal A-fib (3) Pacemaker (4) Hypotension (5) Proteinuria Assessment Symptomatic anemia Hypotension Proteinuria, hypoalbuminemia Encephalopathy Plan March 23: Labs reviewed. Renal parameters stable. Continue per consultants. Hemoglobin higher at 8.8 March 22: Labs reviewed. Stable renal parameters. Continue per consultants. March 21: No labs drawn today. Remains stable from renal standpoint of view. Continue per consultants. March 20: Status quo. Stable from renal standpoint of view. Hemoglobin lower. Defer transfusion to illuminating engineer. March 19: Status quo. Labs reviewed. Renal parameters stable. Continue per consultants. March 18: Status quo. Stable from renal standpoint of view. Continue per consultants. March 17: Labs reviewed. Renal parameters stable. Hemoglobin higher March 16: No labs drawn today. Will check can panel tomorrow. Continue per c onsultants. March 15: Labs reviewed. Stable from renal standpoint of view. Continues to be anemic. Transfusion pump room operator Keep the blood pressure and heart rate in check Per orders Subjective ROS Limited/Unobtainable: No Constitutional: Reports: malaise, weakness Objective Objective Last 24 Hour Vital Signs Date Time Temp Pulse Resp B/P (MAP) Pulse Ox O2 Delivery O2 Flow Rate FiO2 03/23/20 12:00 97.7 63 20 92/54 (67) 97 03/23/20 12:00 64 03/23/20 09:00 Room Air 03/23/20 08:40 62 94/49 03/23/20 08:40 62 03/23/20 08:00 60 03/23/20 08:00 97.7 62 20 94/49 (64) 98 03/23/20 04:00 97.4 81 18 101/55 (70) 96 03/23/20 03:14 62 03/23/20 00:00 98.0 74 18 96/52 (67) 96 03/22/20 23:22 65 03/22/20 21:00 Room Air 03/22/20 21:00 70 100/57 03/22/20 20:00 97.7 70 18 100/57 (71) 96 03/22/20 19:36 67 03/22/20 16:00 60 03/22/20 15:50 97.5 68 20 97/54 (68) 97 Intake and Output 03/22/20 03/23/20 19:00 07:00 Intake Total 200 ml Output Total 701 ml 500 ml Balance -701 ml -300 ml Intake Oral 200 ml Output Urine Total 700 ml 500 ml Stool Total 1 ml # Voids 1 # Bowel Movements 1 Current Medications Medications (Trade) Dose Ordered Sig/Escobar Route PRN Reason Start Time Stop Time Status Last Admin Dose Admin Acetaminophen (Tylenol) 500 mg Q6H PRN ORAL Mild Pain (Pain Scale 1-3) 03/14/20 17:00 04/13/20 16:59 Acetaminophen (Tylenol) 650 mg Q6H PRN ORAL Temp >100.5 03/15/20 13:00 04/14/20 12:59 03/15/20 13:06 Amiodarone HCl (Cordarone) 200 mg DAILY ORAL 03/15/20 09:00 06/13/20 08:59 03/23/20 08:39 Ascorbic Acid (Vitamin C) 250 mg TWICE A DAY ORAL 03/21/20 18:00 04/20/20 17:59 03/23/20 08:39 Digoxin (Lanoxin) 0.125 mg DAILY ORAL 03/15/20 09:00 06/13/20 08:59 03/23/20 08:40 Gabapentin (Neurontin) 300 mg THREE TIMES A DAY ORAL 03/15/20 09:00 04/14/20 08:59 03/23/20 12:24 Heparin Sodium (Porcine) (Heparin 5000 units/ml) 5,000 units EVERY 12 HOURS SUBQ 03/14/20 21:00 04/28/20 20:59 03/23/20 08:39 Levofloxacin 50 ml @ 50 mls/hr Q24H IVPB 03/18/20 21:00 03/25/20 20:59 03/22/20 21:29 Levothyroxine Sodium (Synthroid) 25 mcg DAILY@0630 ORAL 03/15/20 06:30 04/14/20 06:29 03/23/20 05:38 Metoprolol Tartrate (Lopressor) 25 mg Q12HR ORAL 03/14/20 21:00 06/12/20 20:59 03/18/20 08:45 Multivitamins (Multivitamins) 1 tab DAILY ORAL 03/22/20 09:00 04/21/20 08:59 03/23/20 08:39 Laboratory Tests 03/23/20 06:26: White Blood Count 3.6L, Red Blood Count 3.09L, Hemoglobin 8.8L, Hematocrit 26.8L , Mean Corpuscular Volume 87, Mean Corpuscular Hemoglobin 28.5, Mean Corpuscular Hemoglobin Concent 32.9, Red Cell Distribution Width 15.9H, Platelet Count 225, Mean Platelet Volume 11.6H, Neutrophils (%) (Auto) 60.0, Lymphocytes (%) (Auto) 24.6, Monocytes (%) (Auto) 8.6, Eosinophils (%) (Auto) 1.1, Basophils (%) (Auto) 5.8H, Sodium Level 140, Potassium Level 4.4, Chloride Level 107, Carbon Dioxide Level 31, Anion Gap 2L, Blood Urea Nitrogen 31H, Creatinine 0.8, Estimat Glomerular Filtration Rate > 60, Glucose Level 96, Calcium Level 8.4L, Total Bilirubin 0.5, Aspartate Amino Transf (AST/SGOT) 17, Alanine Aminotransferase (ALT/SGPT) 14, Alkaline Phosphatase 98, Total Protein 5.8L, Albumin 2.3L, Globulin 3.5, Albumin/Globulin Ratio 0.7L Height (Feet): 5 Height (Inches): 2.00 Weight (Pounds): 93 General Appearance: no apparent distress Cardiovascular: normal rate Respiratory/Chest: decreased breath sounds Abdomen: soft Objective No change Sudhakar Griggs MD Mar 23, 2020 13:59
--- NOTE | 2020-03-23 15:20 | Cardiac Electrophysiology PN ---
Assessment/Plan Assessment/Plan 1. Hypertension. On Lopressor 25 po bid 2. Status post [employer] pacer in 2010 and generator change by me in 2019. 3. Paroxysmal atrial fibrillation with rapid ventricular response. On digoxin, metoprolol and amiodarone. Off anticoagulation for recurrent bleeding and profound anemia. Dig level 0 .9 4. Profound anemia with hemoglobin of 3 to 4. S/P 6 units of blood transfusion last admission in 01/2020 S/P 4 units of PRBC again this admission 5. History of hemothorax, status post VATS. 6. Pulmonary hypertension. 7. Myelofibrosis. 8. Positive blood Cx on Abx DW RN Subjective Subjective RN at bedside. Blood Cx is positive for gram + and is on Levoquin No CP or SOB. On RA Objective Last 24 Hour Vital Signs Date Time Temp Pulse Resp B/P (MAP) Pulse Ox O2 Delivery O2 Flow Rate FiO2 03/23/20 12:00 97.7 63 20 92/54 (67) 97 03/23/20 12:00 64 03/23/20 09:00 Room Air 03/23/20 08:40 62 94/49 03/23/20 08:40 62 03/23/20 08:00 60 03/23/20 08:00 97.7 62 20 94/49 (64) 98 03/23/20 04:00 97.4 81 18 101/55 (70) 96 03/23/20 03:14 62 03/23/20 00:00 98.0 74 18 96/52 (67) 96 03/22/20 23:22 65 03/22/20 21:00 Room Air 03/22/20 21:00 70 100/57 03/22/20 20:00 97.7 70 18 100/57 (71) 96 03/22/20 19:36 67 03/22/20 16:00 60 03/22/20 15:50 97.5 68 20 97/54 (68) 97 Intake and Output 03/22/20 03/23/20 19:00 07:00 Intake Total 200 ml Output Total 701 ml 500 ml Balance -701 ml -300 ml Intake Oral 200 ml Output Urine Total 700 ml 500 ml Stool Total 1 ml # Voids 1 # Bowel Movements 1 Laboratory Tests Test 03/23/20 06:26 White Blood Count 3.6 K/UL (4.8-10.8) L Red Blood Count 3.09 M/UL (4.20-5.40) L Hemoglobin 8.8 G/DL (12.0-16.0) L Hematocrit 26.8 % (37.0-47.0) L Mean Corpuscular Volume 87 FL (80-99) Mean Corpuscular Hemoglobin 28.5 PG (27.0-31.0) Mean Corpuscular Hemoglobin Concent 32.9 G/DL (32.0-36.0) Red Cell Distribution Width 15.9 % (11.6-14.8) H Platelet Count 225 K/UL (150-450) Mean Platelet Volume 11.6 FL (6.5-10.1) H Neutrophils (%) (Auto) 60.0 % (45.0-75.0) Lymphocytes (%) (Auto) 24.6 % (20.0-45.0) Monocytes (%) (Auto) 8.6 % (1.0-10.0) Eosinophils (%) (Auto) 1.1 % (0.0-3.0) Basophils (%) (Auto) 5.8 % (0.0-2.0) H Sodium Level 140 MMOL/L (136-145) Potassium Level 4.4 MMOL/L (3.5-5.1) Chloride Level 107 MMOL/L (98-107) Carbon Dioxide Level 31 MMOL/L (21-32) Anion Gap 2 mmol/L (5-15) L Blood Urea Nitrogen 31 mg/dL (7-18) H Creatinine 0.8 MG/DL (0.55-1.30) Estimat Glomerular Filtration Rate > 60 mL/min (>60) Glucose Level 96 MG/DL (74-106) Calcium Level 8.4 MG/DL (8.5-10.1) L Total Bilirubin 0.5 MG/DL (0.2-1.0) Aspartate Amino Transf (AST/SGOT) 17 U/L (15-37) Alanine Aminotransferase (ALT/SGPT) 14 U/L (12-78) Alkaline Phosphatase 98 U/L (46-116) Total Protein 5.8 G/DL (6.4-8.2) L Albumin 2.3 G/DL (3.4-5.0) L Globulin 3.5 g/dL Albumin/Globulin Ratio 0.7 (1.0-2.7) L Objective HEAD AND NECK: Showed no JVD. LUNGS: Clear. CARDIOVASCULAR: Regular S1 and S2 with no gallop. Pacemaker in left subclavian. ABDOMEN: Soft. EXTREMITIES: No pitting edema. LABORATORY AND DIAGNOSTIC DATA: Labs show white count of 3.8, hemoglobin was 5, improved to 5.6, and platelet count was 200. Sodium is 140, potassium 4.2, BUN of 23, creatinine 0.7, and glucose of 91. Troponin is negative x2. Digoxin level is 0.9. 1. HTN. Resume the patient's metoprolol 25 mg. 2. Status post [employer] pacemaker in 2010 and generator change by sc in 2018. The pacemaker will be interrogated for further evaluation. 3. Paroxysmal atrial fibrillation on digoxin, metoprolol, and amiodarone. Digoxin level is therapeutic, off anticoagulation for profound anemia. 4. Polycythemia vera and myelofibrosis with profound anemia with hemoglobin of 3.4 on last admission. On discharge in January, hemoglobin was up to 11, but today again hemoglobin is 5. The patient is receiving blood transfusion, followed by Hematology. 5. Status post VATS for history of hemothorax. 6. History of pulmonary hypertension. River Freitas MD Mar 23, 2020 15:20
[2020-03-23 16:00] VITALS: BP 101/53
--- NOTE | 2020-03-23 17:00 | NUR ---
NURSE NOTES: Received orders for discharge to home. Patient observed to be awake, alert, and oriented x3. Seen lying in bed with HOB elevated, currently on room air. Patient discharge paperworks prepared, discharge education provided to family, and no further questions were asked during the time. Patient head to toe assessment done, wound pictures taken and uploaded, patient was able to pass urine after removal of valdez catheter. Patient iv and id band removed. Patient belongings all checked and accounted for. All documents signed by responsible alliance party. Patient discharged off unit in stable condition.
--- NOTE | 2020-03-25 14:28 | Discharge Summary ---
Discharge Summary Discharge Summary _ Date of admission: 03/14/2020 Date of discharge: 03/23/[address] Adrian History of Present Illness and Brief Hospital Course Ms. Pascal is an 79-year-old female with past medical history of atrial fibrillation, polycythemia vera, myelofibrosis, JAK2 mutation, myelodysplasia, CVA, obstructive sleep apnea, coronary artery disease, dyslipidemia, congestive heart disease, sick sinus syndrome, s/p pacemaker implant (06/2019), s/p VATS for history of hemithorax, who presented to the ED for evaluation of generalized weakness x1 week. Patient denied aggravating or relieving factors. Patient was found to be significantly anemic in the initial laboratory studies and was guadalupe sfused with 3 units of packed RBCs. The severe anemia was likely secondary to myelofibrosis. Her generalized weakness was likely due to significant anemia. She was transfused with a total of 7 units of packed red blood cells during hospitalization. It was noted that the generator of her pacemaker was changed by Dr. Freitas in 2019. Given her history of paroxysmal atrial fibrillation with RVR, she was on digoxin, metoprolol, and amiodarone. She remained off of anticoagulation for recurrent bleeding and profound anemia. Throughout her hospitalization, patient's H&H improved and remained stable after transfusion. Patient was medically stable for discharge and was discharged home on 03/23/2020. Consultants: Cardiology Dr. Freitas Surgery Dr. Estrada Nephrology Dr. Hernandez Discharge Condition Improved and stable Final diagnoses Hypertension s/p [employer] pacemaker in 2010, and generator change in 2019 Paroxysmal atrial fibrillation with RVR Polycythemia vera Myelofibrosis Severe anemia s/p VATS for history of hemithorax History of pulmonary hypertension Generalized weakness JAK2 mutation Myelodysplasia Cerebrovascular disease Obstructive sleep apnea COPD Coronary artery disease Congestive heart failure Sick sinus syndrome Proteinuria Severe protein calorie malnutrition Abnormal LFTs History of pyelonephritis I have been assigned to dictate discharge summary for this account. I was not involved in the patient's management Michael Burnham Mar 25, 2020 14:28
== END 2020-03-23 17:23 | disposition home or self-care (01) | DRG 840 ==
LOC: EMR 11:44 → EDBEDREQ 12:07 → 4E 12:16 → 2E 12:16 → UNDOADMIN 12:16 → EDBEDREQ 13:53 → 2E 16:12
PROC: 30233N1 Transfusion of Nonautologous Red Blood Cells into Peripheral Vein, Percutaneous Approach (ICD-10-PCS; principal; 2020-03-14)
DX: D45 Polycythemia vera (principal); E43 Unspecified severe protein-calorie malnutrition; G93.40 Encephalopathy, unspecified; Z68.1 Body mass index [BMI] 19.9 or less, adult; D75.81 Myelofibrosis; I95.9 Hypotension, unspecified; Z95.0 Presence of cardiac pacemaker; I48.0 Paroxysmal atrial fibrillation; I27.20 Pulmonary hypertension, unspecified; D46.Z Other myelodysplastic syndromes; D63.0 Anemia in neoplastic disease; G47.33 Obstructive sleep apnea (adult) (pediatric); J44.9 Chronic obstructive pulmonary disease, unspecified; Z86.73 Personal history of transient ischemic attack (TIA), and cerebral infarction without residual deficits; I25.10 Atherosclerotic heart disease of native coronary artery without angina pectoris; K80.20 Calculus of gallbladder without cholecystitis without obstruction; I11.0 Hypertensive heart disease with heart failure; I50.9 Heart failure, unspecified; L89.156 Pressure-induced deep tissue damage of sacral region; L89.226 Pressure-induced deep tissue damage of left hip
CPT/HCPCS: 36415; 71045; 80048; 80053; 80061; 80162; 80202; 81001; 81003; 82550; 82607; 82728; 82746; 82977; 83036; 83540; 83550; 83605; 83690; 83735; 83880; 84100; 84443; 84484; 84550; 85007; 85025; 86140; 86850; 86870; 86900; 86901; 86904; 86920; 87040; 87181; 93005; 96365; 99291; J7030

== ENCOUNTER 2020-04-13 13:28 | Inpatient (IN) | payer MEDICARE, OTHER ==
[~2020-04-13] VITALS: Ht 153 cm; Wt 45.4 kg
[~2020-04-13 13:28] MED LIST changes: +BISACODYL5 MG ORAL; +DOCUSATE SODIU100 MG ORAL; +TAB-A-VITE TA400 MCG PO
--- NOTE | 2020-04-13 14:03 | Emergency Room Report ---
History of Present Illness General Chief Complaint: To Be Triaged Source: Patient, PMD (Petey Hines MD) Present Illness HPI Patient was sent by her private doctor. She has failure to thrive, anemia and history of polycythemia vera. The patient mainly complains of weakness and not being able to eat well. She is also complaining about pain in her neck. She has not been taking any medication for this. She denies fevers or chills. Patient denies exposure to Covid positive contacts. No sore throat, chest pain, palpitations, nausea, vomiting, diarrhea, dysuria, abdominal pain, rashes, visual changes, dizziness, headache. Son states patient responds poorly to hospitalization. Not eat well and is discharged "weaker". Also usually placed on antidepressants which he feels makes her worse. Patient was admitted March 14 of this year. These are her discharge diagnoses: Hypertension s/p [employer] pacemaker in 2010, and generator change in 2019 Paroxysmal atrial fibrillation with RVR Polycythemia vera Myelofibrosis Severe anemia s/p VATS for history of hemithorax History of pulmonary hypertension Generalized weakness JAK2 mutation Myelodysplasia Cerebrovascular disease Obstructive sleep apnea COPD Coronary artery disease Congestive heart failure Sick sinus syndrome Proteinuria Severe protein calorie malnutrition Abnormal LFTs History of pyelonephritis (Petey Hines MD) Allergies: Coded Allergies: No Known Allergies (Unverified , 04/24/18) COVID-19 Screening Contact w/high risk pt: No Recent Travel to affected area: No Experienced COVID-19 symptoms?: No (Petey Hines MD) Patient History Past Medical History: see triage record, old chart reviewed Past Surgical History: hysterectomy, pacemaker, other - Pneumothorax with chest tube Social History: Denies: smoking, alcohol use, drug use Social History Narrative born in [place] Reviewed Nursing Documentation: PMH: Agreed; PSxH: Agreed (Petey Hines MD) Nursing Documentation-PMH Hx Cardiac Problems: Yes - pacemaker Hx Hypertension: No Hx Pacemaker: Yes Hx Asthma: No Hx COPD: No Hx Diabetes: No Hx Cancer: No Hx Gastrointestinal Problems: No Hx Dialysis: No Hx Neurological Problems: No Hx Cerebrovascular Accident: No Hx Transient Ischemic Attacks: Yes Hx Seizures: No Hx Headaches: Yes Hx Numbness: Yes Hx Weakness: Yes - Generalized weakness (Petey Hines MD) Review of Systems All Other Systems: negative except mentioned in HPI (Petey Hines MD) Physical Exam Vital Signs Date Time Temp Pulse Resp B/P (MAP) Pulse Ox O2 Delivery O2 Flow Rate FiO2 04/13/20 13:52 97.0 65 14 105/43 (63) 97 Room Air Sp02 EP Interpretation: reviewed, normal General Appearance: thin, other - frail, Chronically Ill Eyes: bilateral eye PERRL, bilateral eye EOMI, bilateral eye conjunctivae pale ENT: moist mucus membranes - slightly dry Neck: full range of motion, no bony tend, other - reported tenderness Respiratory: chest non-tender, lungs clear, normal breath sounds, other - Pacemaker left Cardiovascular #1: regular rate, rhythm, no edema Cardiovascular #2: 2+ radial (R) Gastrointestinal: normal bowel sounds, non tender, soft Genitourinary: no CVA tenderness Musculoskeletal: back normal, no calf tenderness, other - kyphosis Neurologic: alert, warranty coordinator III-XII nml as tested, DTRs symmetric, sensory intact, motor weakness - generalized Psychiatric: mood/affect normal Skin: warm/dry - cool feet, pallor (Petey Hines MD) Procedures Critical Care Time Critical Care Time Total Critical Care Time: 35 min bedside evaluation and treatment excludes procedures (EKG). Reason for critical care: Profound anemia, weakness, discussion with family, repeat evaluations, discussion with oncoming emergency physician. Possible complications: hypotension, hypertension, ID, shock, arrhythmias, metabolic acidosis, end organ damage, respiratory failure. Interventions: Ordering of blood and informed consent, discussion with family, discussion with oncoming physician, discussion with blood bank. Course: Patient presented with weakness and pallor with a history of possible anemia. Initial evaluation with ordering of blood. Discussion with son regarding level of care and his concerns. Discussion with blood bank regarding regarding antibody. Discussion with oncoming physician regarding pending labs and transfusion. Consultations: nursing staff, blood bank bank, family, oncoming physician Performed by: Dr. Hines Tolerated well condition = serious (Petey Hines MD) Medical Decision Making Diagnostic Impression: Primary Impression: Profound anemia Qualified Codes: D64.9 - Anemia, unspecified Additional Impressions: Failure to thrive Qualified Codes: R62.7 - Adult failure to thrive Neck pain Polycythemia vera COVID-19 ruled out by laboratory testing ER Course Patient presents with weakness and alleged anemia with a history of polycythemia vera. Differential includes acute myocardial infarction, occult infection, Covid, significant anemia, electrolyte imbalance, failure to thrive amongst others. Patient evaluated with EKG, chest x-ray and lab and labs. Patient placed on a laboratory monitor. Gentle IV hydration ordered. EKG sinus rhythm with nonspecific changes. No injury. Chest x-ray with pacer without infiltrates. Called by lab for Hgb 5.3. Blood ordered. [id number] Informed consent for blood undertaken with patient. She understands and consents to blood. Discussed with blood bank. Patient has antibody. Possible delay in transfusion. Covid antigen negative. Discussed with son concerns of hospitalization and level of care. See critical care notes. Patient endorsed to Dr. Ruiz for final disposition and review of labs. Laboratory Tests Test 04/13/20 14:11 04/13/20 15:40 White Blood Count 5.8 K/UL (4.8-10.8) Red Blood Count 1.85 M/UL (4.20-5.40) L Hemoglobin 5.3 G/DL (12.0-16.0) *L Hematocrit 16.1 % (37.0-47.0) L Mean Corpuscular Volume 87 FL (80-99) Mean Corpuscular Hemoglobin 28.7 PG (27.0-31.0) Mean Corpuscular Hemoglobin Concent 33.0 G/DL (32.0-36.0) Red Cell Distribution Width 16.4 % (11.6-14.8) H Platelet Count 290 K/UL (150-450) Mean Platelet Volume 11.9 FL (6.5-10.1) H Neutrophils (%) (Auto) % (45.0-75.0) Lymphocytes (%) (Auto) % (20.0-45.0) Monocytes (%) (Auto) % (1.0-10.0) Eosinophils (%) (Auto) % (0.0-3.0) Basophils (%) (Auto) % (0.0-2.0) Differential Total Cells Counted 100 Neutrophils % (Manual) 75 % (45-75) Lymphocytes % (Manual) 16 % (20-45) L Monocytes % (Manual) 4 % (1-10) Eosinophils % (Manual) 0 % (0-3) Basophils % (Manual) 3 % (0-2) H Band Neutrophils 2 % (0-8) Reactive Lymphocytes Rare Platelet Estimate Adequate Platelet Morphology Giant Platelets Occasional Hypochromasia 1+ Anisocytosis 2+ Ovalocytes Occasional Prothrombin Time 11.6 SEC (9.30-11.50) H Prothrombin Time INR 1.1 (0.9-1.1) Activated Partial Thromboplast Time 24 SEC (23-33) Sodium Level 135 MMOL/L (136-145) L Potassium Level 5.1 MMOL/L (3.5-5.1) Chloride Level 103 MMOL/L (98-107) Carbon Dioxide Level 22 MMOL/L (21-32) Anion Gap 10 mmol/L (5-15) Blood Urea Nitrogen 37 mg/dL (7-18) H Creatinine 0.9 MG/DL (0.55-1.30) Estimated Glomerular Filtration Rate > 60 mL/min (>60) Glucose Level 145 MG/DL (74-106) H Calcium Level 8.5 MG/DL (8.5-10.1) Magnesium Level 2.4 MG/DL (1.8-2.4) Ferritin 1632 NG/ML (8-388) H Total Bilirubin 0.4 MG/DL (0.2-1.0) Aspartate Amino Transferase (AST) 13 U/L (15-37) L Alanine Aminotransferase (ALT) 12 U/L (12-78) Alkaline Phosphatase 103 U/L (46-116) Lactate Dehydrogenase 616 U/L (81-234) H Total Creatine Kinase 10 U/L (26-308) L Troponin I 0.000 ng/mL (0.000-0.056) C-Reactive Protein, Quantitative 0.5 mg/dL (0.00-0.90) Pro-B-Type Natriuretic Peptide 2320 pg/mL (0-125) H Total Protein 6.6 G/DL (6.4-8.2) Albumin 3.3 G/DL (3.4-5.0) L Globulin 3.3 g/dL Albumin/Globulin Ratio 1.0 (1.0-2.7) Lipase 91 U/L (73-393) Urine Color Pending Urine Appearance Pending Urine pH Pending Urine Specific [place] Pending Urine Protein Pending Urine Glucose (UA) Pending Urine Ketones Pending Urine Blood Pending Urine Nitrite Pending Urine Bilirubin Pending Urine Urobilinogen Pending Urine Leukocyte Esterase Pending Lactic Acid Level 1.60 mmol/L (0.4-2.0) (Petey Hines MD) ER Course Patient was signed out to me for final disposition. Patient does have anemia. Patient will be admitted to the hospital for the management. I discussed this case with Dr. David and Dr. Adrian. Patient will be admitted Dr. Adrian is for service as Dr. Adrian is the primary care physician. Labs Test 04/13/20 14:11 04/13/20 15:40 White Blood Count 5.8 K/UL (4.8-10.8) Red Blood Count 1.85 M/UL (4.20-5.40) Hemoglobin 5.3 G/DL (12.0-16.0) Hematocrit 16.1 % (37.0-47.0) Mean Corpuscular Volume 87 FL (80-99) Mean Corpuscular Hemoglobin 28.7 PG (27.0-31.0) Mean Corpuscular Hemoglobin Concent 33.0 G/DL (32.0-36.0) Red Cell Distribution Width 16.4 % (11.6-14.8) Platelet Count 290 K/UL (150-450) Mean Platelet Volume 11.9 FL (6.5-10.1) Neutrophils (%) (Auto) % (45.0-75.0) Lymphocytes (%) (Auto) % (20.0-45.0) Monocytes (%) (Auto) % (1.0-10.0) Eosinophils (%) (Auto) % (0.0-3.0) Basophils (%) (Auto) % (0.0-2.0) Differential Total Cells Counted 100 Neutrophils % (Manual) 75 % (45-75) Lymphocytes % (Manual) 16 % (20-45) Monocytes % (Manual) 4 % (1-10) Eosinophils % (Manual) 0 % (0-3) Basophils % (Manual) 3 % (0-2) Band Neutrophils 2 % (0-8) Reactive Lymphocytes Rare Platelet Estimate Adequate Platelet Morphology Giant Platelets Occasional Hypochromasia 1+ Anisocytosis 2+ Ovalocytes Occasional Prothrombin Time 11.6 SEC (9.30-11.50) Prothromb Time International Ratio 1.1 (0.9-1.1) Activated Partial Thromboplast Time 24 SEC (23-33) Sodium Level 135 MMOL/L (136-145) Potassium Level 5.1 MMOL/L (3.5-5.1) Chloride Level 103 MMOL/L (98-107) Carbon Dioxide Level 22 MMOL/L (21-32) Anion Gap 10 mmol/L (5-15) Blood Urea Nitrogen 37 mg/dL (7-18) Creatinine 0.9 MG/DL (0.55-1.30) Estimat Glomerular Filtration Rate > 60 mL/min (>60) Glucose Level 145 MG/DL (74-106) Calcium Level 8.5 MG/DL (8.5-10.1) Magnesium Level 2.4 MG/DL (1.8-2.4) Ferritin 1632 NG/ML (8-388) Total Bilirubin 0.4 MG/DL (0.2-1.0) Aspartate Amino Transf (AST/SGOT) 13 U/L (15-37) Alanine Aminotransferase (ALT/SGPT) 12 U/L (12-78) Alkaline Phosphatase 103 U/L (46-116) Lactate Dehydrogenase 616 U/L (81-234) Total Creatine Kinase 10 U/L (26-308) Troponin I 0.000 ng/mL (0.000-0.056) C-Reactive Protein, Quantitative 0.5 mg/dL (0.00-0.90) Pro-B-Type Natriuretic Peptide 2320 pg/mL (0-125) Total Protein 6.6 G/DL (6.4-8.2) Albumin 3.3 G/DL (3.4-5.0) Globulin 3.3 g/dL Albumin/Globulin Ratio 1.0 (1.0-2.7) Lipase 91 U/L (73-393) Lactic Acid Level 1.60 mmol/L (0.4-2.0) (Vincenzo Ruiz MD) EKG Diagnostic Results Rate: normal Rhythm: NSR ST Segments: no acute changes (Petey Hines MD) Rhythm Strip Diag. Results EP Interpretation: yes Rhythm: NSR, no PVC's, no ectopy (Petey Hines MD) Chest X-Ray Diagnostic Results Chest X-Ray Diagnostic Results : Chest X-Ray Ordered: Yes # of Views/Limited/Complete: 1 View Indication: Other EP Interpretation: Yes Interpretation: no consolidation, no effusion, no pneumothorax, other - pacer Impression: No acute disease Electronically Signed by: Pacemaker (Petey Hines MD) Last Vital Signs Date Time Temp Pulse Resp B/P (MAP) Pulse Ox O2 Delivery O2 Flow Rate FiO2 04/13/20 20:56 97.5 94 15 102/48 100 Room Air 62 Status: improved (Petey Hines MD) Status: improved (Vincenzo Ruiz MD) Disposition: ADMITTED INPATIENT Condition: Serious Referrals: Antonio Adrian MD (PCP) Petey Hines MD Apr 13, 2020 14:03 Vincenzo Ruiz MD Apr 13, 2020 17:39
[2020-04-13 14:22] LABS: HEMATOCRIT 16.1 % (37.0-47.0); MEAN CORPUSCULAR VOLUME 87 FL (80-99); PLATELET COUNT 290 K/UL (150-450); RED BLOOD COUNT 1.85 M/UL (4.20-5.40); RED CELL DISTRIBUTION WIDTH 16.4 % (11.6-14.8); WHITE BLOOD COUNT 5.8 K/UL (4.8-10.8)
[2020-04-13 14:31] LABS: HEMOGLOBIN 5.3 G/DL (12.0-16.0)
[2020-04-13 14:38] LABS: ANION GAP 10 mmol/L (5-15); BLOOD UREA NITROGEN 37 mg/dL (7-18); CALCIUM 8.5 MG/DL (8.5-10.1); CARBON DIOXIDE 22 MMOL/L (21-32); CHLORIDE 103 MMOL/L (98-107); CREATININE 0.9 MG/DL (0.55-1.30); POTASSIUM 5.1 MMOL/L (3.5-5.1); SODIUM 135 MMOL/L (136-145)
[2020-04-13 14:39] LABS: INR 1.1 (0.9-1.1)
--- NOTE | 2020-04-13 14:48 | Diagnostic Imaging Report ---
. Indication: Cough Technique: One view of the chest Comparison: 03/14/2020 Findings: The heart is upper limits normal in size. The lungs and pleural spaces are clear. There is a left chest pacemaker again demonstrated. There are degenerative changes of both shoulders Impression: No acute process
[2020-04-13 14:52] LABS: ALANINE AMINOTRANSFERASE 12 U/L (12-78); ALBUMIN 3.3 G/DL (3.4-5.0); ALKALINE PHOSPHATASE 103 U/L (46-116); ASPARTATE AMINO TRANSFERASE 13 U/L (15-37); BILIRUBIN,TOTAL 0.4 MG/DL (0.2-1.0); CREATINE KINASE 10 U/L (26-308); LACTATE DEHYDROGENASE 616 U/L (81-234)
--- NOTE | 2020-04-13 15:00 | NUR ---
pt arrives to ER POV with son with complaints of generalized weakness. pt has history of anemia requiring blood transfusion in the past. pt states being weak and difficulty walking. pt placed on cafeteria monitor.
[2020-04-13 15:21] LABS: FERRITIN 1632 NG/ML (8-388)
--- NOTE | 2020-04-13 17:00 | NUR ---
per blood bank, antibodies present in the blood sample, blood unit pending.
[2020-04-13 18:22] VITALS: BP 106/67
--- NOTE | 2020-04-13 18:41 | NUR ---
pt resting comfortably.
[2020-04-13 19:21] LABS: APPEARANCE,URINE CLEAR; BILIRUBIN, URINE NEGATIVE (NEGATIVE); COLOR,URINE PALE YELLOW; GLUCOSE, URINE (UA) NEGATIVE (NEGATIVE); KETONES,URINE NEGATIVE (NEGATIVE); LEUKOCYTE ESTERASE ,URINE NEGATIVE (NEGATIVE); NITRITE,URINE NEGATIVE (NEGATIVE); PH,URINE 7 (4.5-8.0); PROTEIN,URINE 2+ (NEGATIVE); UROBILINOGEN,URINE NORMAL MG/DL (0.0-1.0)
[2020-04-13 19:25] VITALS: BP 97/47
--- NOTE | 2020-04-13 19:35 | NUR ---
Blood transfusion begun vital signs taken 15 min before and 15 min after blood transfusion begun. Blood is running without any adverse effect. Will continue to monitor.
[2020-04-13 19:45] VITALS: BP 98/49
--- NOTE | 2020-04-13 20:45 | NUR ---
NURSE NOTES: Received telephone report from Nancy ROTH.
--- NOTE | 2020-04-13 20:53 | NUR ---
TRANSFER TO FLOOR: Patient transferred to [facility] as ordered, per MD . Report given to IRA Jones. Belongings sent with patient, belongings form filled and sent with chart. Blood administration consent, and blood administration documents sent with chart
[2020-04-13 20:56] VITALS: BP 102/48
--- NOTE | 2020-04-13 21:05 | NUR ---
NURSE NOTES: Patient transported by gurney. Patient is awake, alert, and oriented x4. On room air, breathing is even and unlabored. No complains of pain or distress noted. Skin is clean and intact. Belongings list checked. Oriented to hospital room. VS stable. Patient receiving first bag of blood, no adverse reaction. IV left hand patent but bleeding noted. Will change dressing. Bed low and locked. Call light within reach.
[2020-04-13 21:10] VITALS: BP 111/56
--- NOTE | 2020-04-13 22:18 | NUR ---
NURSE NOTES: Called for admission orders. No answer. Left a voice message. Waiting for return call.
[2020-04-13] MEDS ORDERED: Bisacodyl EC 5mg tab ORAL PRN (23:15)
--- NOTE | 2020-04-13 23:31 | History & Physical ---
History and Physical History & Physicial Antonio Adrian MD Apr 13, 2020 23:31
--- NOTE | 2020-04-13 23:36 | NUR ---
NURSE NOTES: Blood bank called and said that patient has antibodies so physical therapy technician will make the second bag of blood and call me later. No adverse reaction after first bag of blood. VS stable.
[2020-04-14] VITALS (7 sets, daily range): BP systolic 103–131; BP diastolic 50–74
--- NOTE | 2020-04-14 03:30 | NUR ---
NURSE NOTES: Second bag of blood started.
[2020-04-14] MEDS: Levothyroxine 25mcg tab ORAL SCH (06:23)
--- NOTE | 2020-04-14 06:33 | Consultation ---
History of Present Illness General Chief Complaint: Abnormal Labs Present Illness Allergies: Coded Allergies: No Known Allergies (Unverified , 04/24/18) Medication History Scheduled Amiodarone Hcl* (Pacerone*), 200 MG ORAL DAILY, (Reported) Bisacodyl* (Dulcolax*), 5-10 MG ORAL DAILY, (Reported) Docusate Sodium* (Docusate Sodium*), 100 MG ORAL TWICE A DAY, (Reported) Omeprazole (Omeprazole), 20 MG ORAL DAILY, (Reported) [Digoxin], 0.125 MG ORAL DAILY Miscellaneous Medications Multivitamin with Folic Acid (Tab-A-Suzy Tablet), 400 MCG PO, (Reported) Patient History Healthcare decision maker N Resuscitation status Advanced Directive on File Physical Exam Last 24 Hour Vital Signs Date Time Temp Pulse Resp B/P (MAP) Pulse Ox O2 Delivery O2 Flow Rate FiO2 04/14/20 04:00 98.3 64 18 106/53 (70) 99 04/14/20 00:00 97.9 62 18 110/58 (75) 100 04/13/20 22:00 Room Air 04/13/20 21:10 97.7 64 18 111/56 (74) 100 04/13/20 20:56 97.5 94 15 102/48 100 Room Air 62 04/13/20 19:45 97.5 62 17 98/49 95 04/13/20 19:25 98.2 75 19 97/47 97 Room Air 04/13/20 18:22 98.4 94 20 106/67 100 Room Air 04/13/20 13:52 97.0 65 14 105/43 (63) 97 Room Air Intake and Output 04/13/20 04/14/20 19:00 07:00 Intake Total 1000 ml 240 ml Balance 1000 ml 240 ml Intake Oral 240 ml IV Total 1000 ml # Voids 7 Laboratory Tests Test 04/13/20 14:11 04/13/20 15:40 04/13/20 19:00 White Blood Count 5.8 K/UL (4.8-10.8) Red Blood Count 1.85 M/UL (4.20-5.40) L Hemoglobin 5.3 G/DL (12.0-16.0) *L Hematocrit 16.1 % (37.0-47.0) L Mean Corpuscular Volume 87 FL (80-99) Mean Corpuscular Hemoglobin 28.7 PG (27.0-31.0) Mean Corpuscular Hemoglobin Concent 33.0 G/DL (32.0-36.0) Red Cell Distribution Width 16.4 % (11.6-14.8) H Platelet Count 290 K/UL (150-450) Mean Platelet Volume 11.9 FL (6.5-10.1) H Neutrophils (%) (Auto) % (45.0-75.0) Lymphocytes (%) (Auto) % (20.0-45.0) Monocytes (%) (Auto) % (1.0-10.0) Eosinophils (%) (Auto) % (0.0-3.0) Basophils (%) (Auto) % (0.0-2.0) Differential Total Cells Counted 100 Neutrophils % (Manual) 75 % (45-75) Lymphocytes % (Manual) 16 % (20-45) L Monocytes % (Manual) 4 % (1-10) Eosinophils % (Manual) 0 % (0-3) Basophils % (Manual) 3 % (0-2) H Band Neutrophils 2 % (0-8) Reactive Lymphocytes Rare Platelet Estimate Adequate Platelet Morphology Giant Platelets Occasional Hypochromasia 1+ Anisocytosis 2+ Ovalocytes Occasional Prothrombin Time 11.6 SEC (9.30-11.50) H Prothromb Time International Ratio 1.1 (0.9-1.1) Activated Partial Thromboplast Time 24 SEC (23-33) Sodium Level 135 MMOL/L (136-145) L Potassium Level 5.1 MMOL/L (3.5-5.1) Chloride Level 103 MMOL/L (98-107) Carbon Dioxide Level 22 MMOL/L (21-32) Anion Gap 10 mmol/L (5-15) Blood Urea Nitrogen 37 mg/dL (7-18) H Creatinine 0.9 MG/DL (0.55-1.30) Estimat Glomerular Filtration Rate > 60 mL/min (>60) Glucose Level 145 MG/DL (74-106) H Calcium Level 8.5 MG/DL (8.5-10.1) Magnesium Level 2.4 MG/DL (1.8-2.4) Ferritin 1632 NG/ML (8-388) H Total Bilirubin 0.4 MG/DL (0.2-1.0) Aspartate Amino Transf (AST/SGOT) 13 U/L (15-37) L Alanine Aminotransferase (ALT/SGPT) 12 U/L (12-78) Alkaline Phosphatase 103 U/L (46-116) Lactate Dehydrogenase 616 U/L (81-234) H Total Creatine Kinase 10 U/L (26-308) L Troponin I 0.000 ng/mL (0.000-0.056) C-Reactive Protein, Quantitative 0.5 mg/dL (0.00-0.90) Pro-B-Type Natriuretic Peptide 2320 pg/mL (0-125) H Total Protein 6.6 G/DL (6.4-8.2) Albumin 3.3 G/DL (3.4-5.0) L Globulin 3.3 g/dL Albumin/Globulin Ratio 1.0 (1.0-2.7) Lipase 91 U/L (73-393) Lactic Acid Level 1.60 mmol/L (0.4-2.0) Urine Color Pale yellow Urine Appearance Clear Urine pH 7 (4.5-8.0) Urine Specific [place] 1.005 (1.005-1.035) Urine Protein 2+ (NEGATIVE) H Urine Glucose (UA) Negative (NEGATIVE) Urine Ketones Negative (NEGATIVE) Urine Blood Negative (NEGATIVE) Urine Nitrite Negative (NEGATIVE) Urine Bilirubin Negative (NEGATIVE) Urine Urobilinogen Normal MG/DL (0.0-1.0) Urine Leukocyte Esterase Negative (NEGATIVE) Urine RBC 0 /HPF (0 - 2) Urine WBC 0-2 /HPF (0 - 2) Urine Squamous Epithelial Cells Few /LPF (NONE/OCC) Urine Bacteria Occasional /HPF (NONE) Microbiology Date/Time Source Procedure Growth Status 04/13/20 15:00 Nasopharynx SARS-CoV-2 Antigen (Rapid)(DELL) - Final Complete Height (Feet): 5 Height (Inches): 0.25 Weight (Pounds): 100 Medications Current Medications Medications (Trade) Dose Ordered Sig/Escobar Route PRN Reason Start Time Stop Time Status Last Admin Dose Admin Acetaminophen (Tylenol) 650 mg Q6H PRN ORAL Mild Pain (Pain Scale 1-3) 04/13/20 23:00 05/13/20 22:59 Acetaminophen (Tylenol) 650 mg Q6H PRN ORAL Temp >100.5 04/13/20 23:00 05/13/20 22:59 Amiodarone HCl (Cordarone) 200 mg DAILY ORAL 04/14/20 09:00 07/13/20 08:59 Bisacodyl (Dulcolax) 5 mg DAILY PRN ORAL Constipation 04/13/20 23:15 07/12/20 23:14 Digoxin (Lanoxin) 0.125 mg DAILY ORAL 04/14/20 09:00 07/13/20 08:59 Docusate Sodium (Colace) 100 mg TWICE A DAY ORAL 04/14/20 09:00 05/14/20 08:59 Heparin Sodium (Porcine) (Heparin 5000 units/ml) 5,000 units EVERY 12 HOURS SUBQ 04/14/20 09:00 05/29/20 08:59 Levothyroxine Sodium (Synthroid) 25 mcg DAILY@0630 ORAL 04/14/20 06:30 05/14/20 06:29 04/14/20 06:23 Multivitamins (Multivitamins) 1 tab DAILY ORAL 04/14/20 09:00 05/14/20 08:59 Ondansetron HCl (Zofran) 4 mg Q6H PRN IVP Nausea & Vomiting 04/13/20 23:00 05/13/20 22:59 Pantoprazole (Protonix) 40 mg DAILY ORAL 04/14/20 09:00 05/14/20 08:59 Assessment/Plan Assessment/Plan: Hematology Consultation RfC: Anemia DOS 04/14/2020 REQ MD: Antonio Adrian HPI 79y old female well known to me, sent in. She has failure to thrive, anemia and history of polycythemia vera. The patient mainly complains of weakness and not being able to eat well. She is also complaining about pain in her neck. She has not been taking any medication for this. She denies fevers or chills. Patient denies exposure to Covid positive contacts. No sore throat, chest pain, palpitations, nausea, vomiting, diarrhea, dysuria, abdominal pain, rashes, visual changes, dizziness, headache. Son states patient responds poorly to hospitalization. Not eat well and is discharged "weaker". Also usually placed on antidepressants which he feels makes her worse. Patient was admitted March 14 of this year. These are her discharge diagnoses: Hypertension s/p [employer] pacemaker in 2011, and generator change in 2019 Paroxysmal atrial fibrillation with RVR Polycythemia vera Myelofibrosis Severe anemia s/p VATS for history of hemithorax History of pulmonary hypertension Generalized weakness JAK2 mutation Myelodysplasia Cerebrovascular disease Obstructive sleep apnea COPD Coronary artery disease Congestive heart failure Sick sinus syndrome Proteinuria Severe protein calorie malnutrition Abnormal LFTs History of pyelonephritis Allergies: Coded Allergies: No Known Allergies (Unverified , 04/24/18) COVID-19 Screening Contact w/high risk pt: No Recent Travel to affected area: No Experienced COVID-19 symptoms?: No Patient History Past Medical History: see triage record, old chart reviewed Past Surgical History: hysterectomy, pacemaker, other - Pneumothorax with chest tube Social History: Denies: smoking, alcohol use, drug use Social History Narrative born in [place] Reviewed Nursing Documentation: PMH: Agreed; PSxH: Agreed (Petey Hines MD) Nursing Documentation-PMH Hx Cardiac Problems: Yes - pacemaker Hx Hypertension: No Hx Pacemaker: Yes Hx Asthma: No Hx COPD: No Hx Diabetes: No Hx Cancer: No Hx Gastrointestinal Problems: No Hx Dialysis: No Hx Neurological Problems: No Hx Cerebrovascular Accident: No Hx Transient Ischemic Attacks: Yes Hx Seizures: No Hx Headaches: Yes Hx Numbness: Yes Hx Weakness: Yes - Generalized weakness Review of Systems All Other Systems: negative except mentioned in HPI Physical Exam Vitals: noted General: thin, other - frail, Chronically Ill Eyes: bilateral eye PERRL, bilateral eye EOMI ENT: moist mucus membranes - slightly dry Neck: full range of motion, no bony tend, other Respiratory: chest non-tender- Pacemaker left Cardiovascular: regular rate, rhythm Gastrointestinal: normal bowel sounds Genitourinary: no CVA tenderness Musculoskeletal: back normal, no calf tenderness, other - kyphosis Neurologic: alert, track service person III-XII nml as tested Psychiatric: mood/affect normal Skin: warm/dry - cool feet, pallor Labs: reviewed Imaging: reviewed ASSESSMENT AND RECOMMENDATIONS # Polycythemia vera, JAK2+++. In prior was on hydroxyurea --> was int he past jak2+++ -> consider outpatient hydrea when h/h better --> imaging abd us ordered - Splenomegaly. 3 cm cyst within the spleen probably complex with at least one or 2 septations. Trace right pleural effusion. Gallb ladder sludge versus stones. --> hold off hydrea at this time # Pancytopenia now with initially with anemia of chronic disease due to underlying chronic medical issues, multifactorial, also due to polycythemia vera, hgb 5 on admission --> Anemia workup has been ordered, rule out gi bleed - results noted and cw acd --> No evidence of hemolysis is noted, peripheral smear has been reviewed. --> Hgb goal >7. Transfuse prn --> low threshold for gi evaluation in case has occult --> Hgb trend:4.8-->5.9 --> wbc 3.8-->4 --> Patient received an EGD prior admission, by GI at that time that showed gastritis. No varices # Vertigo. --> per neuro as needed # Atrial fibrillation with rapid ventricular rate. --> Serial troponin levels will be performeD prior and neg --> per cards # Hypertension. Cont on clonidine # Obstructive sleep apnea. # Coronary artery disease. # Hypercholesteremia. # Congestive heart failure. # Dvt ppx heparin sq The time the the note is entered does not reflect the time the patient was examined. I greatly appreciate the consultation. Best Kaplan MD Apr 14, 2020 06:33
--- NOTE | 2020-04-14 07:15 | NUR ---
NURSE NOTES: PRBC 2 bags done. No adverse reaction. VS stable
--- NOTE | 2020-04-14 07:27 | NUR ---
NURSE NOTES: Report received from Robert RN, rounds made. Patient AOX4, calm. [place]/Gu[place]ian speaking. Respirations even/unlabored on RA. Denies SOB, pain, NV. Recently completed second unit of PRBCs this AM. RFA (CDI) and LW (bloody) saline lock. [employer] pacemaker noted. Call light in reach, bed in lowest position, will continue to monitor.
--- NOTE | 2020-04-14 08:13 | NUR ---
NURSE HAND-OFF: Important Events on Shift: Admission, 2 PRBC Patient Status: Stable Diet: Regular Pending Orders: [] Pending Results/Labs:[] Pending MD notification:[] Latest Vital Signs: Temperature 98.3 , Pulse 64 , B/P 106 /53 , Respiratory Rate 18 , O2 SAT 99 , Room Air, O2 Flow Rate . Vital Sign Comment: VS stable Latest Yepez Fall Score: 45 Fall Risk: High Risk Safety Measures: Call light Within Reach, Bed Alarm , Side Rails Side Rails x2, Bed position Low and Locked. Fall Precautions: Patient Fall Education Report given to Gita ROTH.
--- NOTE | 2020-04-14 08:53 | NUR ---
NURSE NOTES: Confirmed with Dr. Adrian if okay to administer Heparin SQ (last platelets 290 on 04/13), due to patient recently completing 2nd unit of PRBCs. Orders for okay for Heparin SQ, will follow as ordered.
[2020-04-14] MEDS: Heparin 5000 units/ml inj SUBQ SCH ×2 (09:00→20:47)
[2020-04-14] MEDS: Amiodarone 200mg tab ORAL SCH (09:00)
[2020-04-14] MEDS: Docusate 100mg cap ORAL SCH ×2 (09:00→18:24)
[2020-04-14] MEDS: Digoxin 0.125mg tab ORAL SCH (09:00)
--- NOTE | 2020-04-14 10:29 | Consultation ---
History of Present Illness General Date patient seen: Apr 14, 2020 Reason for Hospitalization: Abnormal Labs Present Illness HPI This is an 79-year-old female well-known to me who cared for in the past was sent urgently by her PCP for abnormal labs including severe anemia. She has failure to thrive, anemia and history of polycythemia vera. The patient mainly complains of weakness and not being able to eat well. She is also complaining about pain in her neck. She has not been taking any medication for this. She denies fevers or chills. Surgery called to eval and assist with care as patient complaining of pain in her neck evaluate for abscess mass or trauma. Patient seen, patient evaluate, chart reviewed. States a cramping pain in the posterior aspect of her neck. No nausea vomiting fever chills. Feels weak. Feels depressed at times. States she is not able to move much. Patient denies exposure to Covid positive contacts. No sore throat, chest pain, palpitations, nausea, vomiting, diarrhea, dysuria, abdominal pain, rashes, visual changes, dizziness, headache. Son states patient responds poorly to hospitalization. Not eat well and is discharged "weaker". Also usually placed on antidepressants which he feels makes her worse. Patient was admitted March 14 of this year. These are her discharge diagnoses: Hypertension s/p [employer] pacemaker in 2010, and generator change in 2019 Paroxysmal atrial fibrillation with RVR Polycythemia vera Myelofibrosis Severe anemia s/p VATS for history of hemithorax History of pulmonary hypertension Generalized weakness JAK2 mutation Myelodysplasia Cerebrovascular disease Obstructive sleep apnea COPD Coronary artery disease Congestive heart failure Sick sinus syndrome Proteinuria Severe protein calorie malnutrition Abnormal LFTs History of pyelonephritis Allergies: Coded Allergies: No Known Allergies (Unverified , 04/24/18) COVID-19 Screening Contact w/high risk pt: No Recent Travel to affected area: No Experienced COVID-19 symptoms?: No Medication History Scheduled Amiodarone Hcl* (Pacerone*), 200 MG ORAL DAILY, (Reported) Bisacodyl* (Dulcolax*), 5-10 MG ORAL DAILY, (Reported) Docusate Sodium* (Docusate Sodium*), 100 MG ORAL TWICE A DAY, (Reported) Omeprazole (Omeprazole), 20 MG ORAL DAILY, (Reported) [Digoxin], 0.125 MG ORAL DAILY Miscellaneous Medications Multivitamin with Folic Acid (Tab-A-Suzy Tablet), 400 MCG PO, (Reported) Patient History History Provided By: Patient, Medical Record, PMD Healthcare decision maker N Resuscitation status Advanced Directive on File Past Medical/Surgical History Past Medical/Surgical History: (1) Altered mental state (2) Signs and symptoms of anemia (3) Hypotension (4) Proteinuria (5) Generalized weakness (6) Protein-calorie malnutrition, severe (7) Abnormal LFTs (8) Severe anemia (9) Symptomatic anemia (10) COVID-19 ruled out by laboratory testing (11) Profound anemia (12) Neck pain (13) Failure to thrive (14) ACS (acute coronary syndrome) (15) Pyelonephritis (16) CAD (coronary artery disease) (17) COPD (chronic obstructive pulmonary disease) (18) positional vertigo (19) KELVIN (obstructive sleep apnea) (20) Peripheral neuropathy (21) Myelofibrosis (22) JAK2 V617F mutation (23) UTI (urinary tract infection) (24) Polycythemia vera (25) Pacemaker (26) Acute encephalopathy (27) Chronic anticoagulation (28) RLL pneumonia (29) Hematothorax (30) Thoracostomy tube in place (31) Collapse of left lung (32) Paroxysmal A-fib (33) Anemia Review of Systems Review of Symptoms General ROS: no weight loss or fever Psychological ROS: no depression or mood changes, no memory loss Ophthalmic ROS: no visual changes or eye irritation ENT ROS: no nasal congestion, hearing loss, dizziness Allergy and Immunology ROS: no allergic symptoms or urticaria Hematological and Lymphatic ROS: no swollen glands, unusual bleeding or bruising Endocrine ROS: no polyuria, polydipsia, weight changes, temperature intolerance Respiratory ROS: no cough, shortness of breath, or wheezing Cardiovascular ROS: no chest pain or dyspnea on exertion Gastrointestinal ROS: denies abdominal pain, bright red blood in stool. Musculoskeletal ROS: no myalgias or arthralgias Neurological ROS: no TIA or stroke symptoms Dermatological ROS: no new or changing skin lesions, rashes or pruritis Physical Exam Physical Exam General appearance: alert, cooperative, no distress, appears stated age Head: Normocephalic, without obvious abnormality, atraumatic Eyes: conjunctivae/corneas clear. PERRL, EOM's intact. Fundi benign Throat: Lips, mucosa, and tongue normal. Teeth and gums normal Neck: supple, symmetrical, trachea midline, no adenopathy, thyroid: not enlarged, symmetric, no tenderness/mass/nodules, no carotid bruit and no JVD Lungs: clear to auscultation bilaterally Heart: regular rate and rhythm, S1, S2 normal, no murmur, click, rub or gallop Abdomen: soft, non-tender. Bowel sounds normal. No masses, no organomegaly Extremities: extremities normal, atraumatic, no cyanosis or edema Pulses: 2+ and symmetric Skin: Skin color, texture, turgor normal. No rashes or lesions Neurologic: Grossly normal Last 24 Hour Vital Signs Date Time Temp Pulse Resp B/P (MAP) Pulse Ox O2 Delivery O2 Flow Rate FiO2 04/14/20 09:00 70 04/14/20 08:00 97.8 65 20 122/56 (78) 95 04/14/20 04:00 98.3 64 18 106/53 (70) 99 04/14/20 00:00 97.9 62 18 110/58 (75) 100 04/13/20 22:00 Room Air 04/13/20 21:10 97.7 64 18 111/56 (74) 100 04/13/20 20:56 97.5 94 15 102/48 100 Room Air 62 04/13/20 19:45 97.5 62 17 98/49 95 04/13/20 19:25 98.2 75 19 97/47 97 Room Air 04/13/20 18:22 98.4 94 20 106/67 100 Room Air 04/13/20 13:52 97.0 65 14 105/43 (63) 97 Room Air Intake and Output 04/13/20 04/14/20 18:59 06:59 Intake Total 1000 ml 240 ml Balance 1000 ml 240 ml Intake Oral 240 ml IV Total 1000 ml # Voids 7 Laboratory Tests Test 04/13/20 14:11 04/13/20 15:40 04/13/20 19:00 White Blood Count 5.8 K/UL (4.8-10.8) Red Blood Count 1.85 M/UL (4.20-5.40) L Hemoglobin 5.3 G/DL (12.0-16.0) *L Hematocrit 16.1 % (37.0-47.0) L Mean Corpuscular Volume 87 FL (80-99) Mean Corpuscular Hemoglobin 28.7 PG (27.0-31.0) Mean Corpuscular Hemoglobin Concent 33.0 G/DL (32.0-36.0) Red Cell Distribution Width 16.4 % (11.6-14.8) H Platelet Count 290 K/UL (150-450) Mean Platelet Volume 11.9 FL (6.5-10.1) H Neutrophils (%) (Auto) % (45.0-75.0) Lymphocytes (%) (Auto) % (20.0-45.0) Monocytes (%) (Auto) % (1.0-10.0) Eosinophils (%) (Auto) % (0.0-3.0) Basophils (%) (Auto) % (0.0-2.0) Differential Total Cells Counted 100 Neutrophils % (Manual) 75 % (45-75) Lymphocytes % (Manual) 16 % (20-45) L Monocytes % (Manual) 4 % (1-10) Eosinophils % (Manual) 0 % (0-3) Basophils % (Manual) 3 % (0-2) H Band Neutrophils 2 % (0-8) Reactive Lymphocytes Rare Platelet Estimate Adequate Platelet Morphology Giant Platelets Occasional Hypochromasia 1+ Anisocytosis 2+ Ovalocytes Occasional Prothrombin Time 11.6 SEC (9.30-11.50) H Prothromb Time International Ratio 1.1 (0.9-1.1) Activated Partial Thromboplast Time 24 SEC (23-33) Sodium Level 135 MMOL/L (136-145) L Potassium Level 5.1 MMOL/L (3.5-5.1) Chloride Level 103 MMOL/L (98-107) Carbon Dioxide Level 22 MMOL/L (21-32) Anion Gap 10 mmol/L (5-15) Blood Urea Nitrogen 37 mg/dL (7-18) H Creatinine 0.9 MG/DL (0.55-1.30) Estimat Glomerular Filtration Rate > 60 mL/min (>60) Glucose Level 145 MG/DL (74-106) H Calcium Level 8.5 MG/DL (8.5-10.1) Magnesium Level 2.4 MG/DL (1.8-2.4) Ferritin 1632 NG/ML (8-388) H Total Bilirubin 0.4 MG/DL (0.2-1.0) Aspartate Amino Transf (AST/SGOT) 13 U/L (15-37) L Alanine Aminotransferase (ALT/SGPT) 12 U/L (12-78) Alkaline Phosphatase 103 U/L (46-116) Lactate Dehydrogenase 616 U/L (81-234) H Total Creatine Kinase 10 U/L (26-308) L Troponin I 0.000 ng/mL (0.000-0.056) C-Reactive Protein, Quantitative 0.5 mg/dL (0.00-0.90) Pro-B-Type Natriuretic Peptide 2320 pg/mL (0-125) H Total Protein 6.6 G/DL (6.4-8.2) Albumin 3.3 G/DL (3.4-5.0) L Globulin 3.3 g/dL Albumin/Globulin Ratio 1.0 (1.0-2.7) Lipase 91 U/L (73-393) Lactic Acid Level 1.60 mmol/L (0.4-2.0) Urine Color Pale yellow Urine Appearance Clear Urine pH 7 (4.5-8.0) Urine Specific [place] 1.005 (1.005-1.035) Urine Protein 2+ (NEGATIVE) H Urine Glucose (UA) Negative (NEGATIVE) Urine Ketones Negative (NEGATIVE) Urine Blood Negative (NEGATIVE) Urine Nitrite Negative (NEGATIVE) Urine Bilirubin Negative (NEGATIVE) Urine Urobilinogen Normal MG/DL (0.0-1.0) Urine Leukocyte Esterase Negative (NEGATIVE) Urine RBC 0 /HPF (0 - 2) Urine WBC 0-2 /HPF (0 - 2) Urine Squamous Epithelial Cells Few /LPF (NONE/OCC) Urine Bacteria Occasional /HPF (NONE) Microbiology Date/Time Source Procedure Growth Status 04/13/20 15:00 Nasopharynx SARS-CoV-2 Antigen (Rapid)(DELL) - Final Complete Height (Feet): 5 Height (Inches): 0.25 Weight (Pounds): 100 Medications Current Medications Medications (Trade) Dose Ordered Sig/Escobar Route PRN Reason Start Time Stop Time Status Last Admin Dose Admin Acetaminophen (Tylenol) 650 mg Q6H PRN ORAL Mild Pain (Pain Scale 1-3) 04/13/20 23:00 05/13/20 22:59 Acetaminophen (Tylenol) 650 mg Q6H PRN ORAL Temp >100.5 04/13/20 23:00 05/13/20 22:59 Amiodarone HCl (Cordarone) 200 mg DAILY ORAL 04/14/20 09:00 07/13/20 08:59 04/14/20 09:00 Bisacodyl (Dulcolax) 5 mg DAILY PRN ORAL Constipation 04/13/20 23:15 07/12/20 23:14 Digoxin (Lanoxin) 0.125 mg DAILY ORAL 04/14/20 09:00 07/13/20 08:59 04/14/20 09:00 Docusate Sodium (Colace) 100 mg TWICE A DAY ORAL 04/14/20 09:00 05/14/20 08:59 04/14/20 09:00 Heparin Sodium (Porcine) (Heparin 5000 units/ml) 5,000 units EVERY 12 HOURS SUBQ 04/14/20 09:00 05/29/20 08:59 04/14/20 09:00 Levothyroxine Sodium (Synthroid) 25 mcg DAILY@0630 ORAL 04/14/20 06:30 05/14/20 06:29 04/14/20 06:23 Multivitamins (Multivitamins) 1 tab DAILY ORAL 04/14/20 09:00 05/14/20 08:59 04/14/20 09:00 Ondansetron HCl (Zofran) 4 mg Q6H PRN IVP Nausea & Vomiting 04/13/20 23:00 05/13/20 22:59 Pantoprazole (Protonix) 40 mg DAILY ORAL 04/14/20 09:00 05/14/20 08:59 04/14/20 09:00 Assessment/Plan Problem List: (1) COVID-19 ruled out by laboratory testing ICD Codes: Z20.822 - Contact with and (suspected) exposure to COVID-19 SNOMED: 737527252424187455, 313569941 (2) Profound anemia ICD Codes: D64.9 - Anemia, unspecified SNOMED: 260064168 Qualifiers: Qualified Codes: D64.9 - Anemia, unspecified (3) Neck pain Assessment & Plan: 79-year-old female complaining of posterior neck pain. States cramping has only been ongoing recently feels she may have been sleeping on the wrong side. States she slept well last night and feels little bit better today. No nausea vomiting fever chills. Labs noted severe anemia no leukocytosis. Blood transfusion pending. Okay for warm compress per okay for anti-inflammatory no abscess no mass identified. Physical exam fairly benign. Will follow with recommendations and clinical examination. Okay for diet from surgical standpoint. Thank you will follow with recommendations. prior CT reviewed from last admission FINDINGS: Pulmonary arteries: Unremarkable. No pulmonary embolism. Aorta: No thoracic aortic aneurysm. Lungs: Atelectatic volume loss and consolidation in bilateral lower lobes. Pleural space: Mild to moderate bilateral layering pleural effusions. Heart: Cardiomegaly. No pericardial effusion. No evidence of RV dysfunction. Bones/joints: Multilevel degenerative changes throughout the visualized spine with disc space loss and endplate osteophytes. No acute fracture. No dislocation. Soft tissues: Unremarkable. Lymph nodes: Unremarkable. No enlarged lymph nodes. Tubes, lines and devices: Cardiac pacer in the left chest wall with the lead tips in the right atrium and right ventricle. Upper abdomen: Incidental note of a 3.5 cm hypodensity in the superior aspect of spine, possibly a cyst or hemangioma. IMPRESSION: 1. Mild to moderate bilateral layering pleural effusions. 2. Atelectatic volume loss and consolidation in bilateral lower lobes. 3. No evidence of pulmonary embolism. 4. Cardiomegaly. 5. Incidental note of a 3.5 cm hypodensity in the superior aspect of spine, possibly a cyst or hemangioma. incidental much lower unlikely related to neck pain ICD Codes: M54.2 - Cervicalgia SNOMED: 05003446 (4) Generalized weakness ICD Codes: R53.1 - Weakness SNOMED: 40653371 (5) Failure to thrive SNOMED: 40027309 Qualifiers: Qualified Codes: R62.7 - Adult failure to thrive (6) Proteinuria ICD Codes: R80.9 - Proteinuria, unspecified SNOMED: 83125692 (7) Altered mental state ICD Codes: R41.82 - Altered mental status, unspecified SNOMED: 953294928, 429782364 (8) Hypotension ICD Codes: I95.9 - Hypotension, unspecified SNOMED: 07867051 (9) Protein-calorie malnutrition, severe ICD Codes: E43 - Unspecified severe protein-calorie malnutrition SNOMED: 262164553, 014693912, 138770484 (10) Abnormal LFTs ICD Codes: R94.5 - Abnormal results of liver function studies SNOMED: 115626479 (11) Severe anemia ICD Codes: D64.9 - Anemia, unspecified SNOMED: 527305224 (12) Symptomatic anemia ICD Codes: D64.9 - Anemia, unspecified SNOMED: 264050023 (13) Signs and symptoms of anemia ICD Codes: D64.9 - Anemia, unspecified SNOMED: 15105258, 320343784 (14) ACS (acute coronary syndrome) ICD Codes: I20.0 - Unstable angina SNOMED: 940259284 (15) Pyelonephritis ICD Codes: N12 - Tubulo-interstitial nephritis, not specified as acute or chronic SNOMED: 24048958 (16) CAD (coronary artery disease) ICD Codes: I25.10 - Atherosclerotic heart disease of [place] coronary artery without angina pectoris SNOMED: 06603441 (17) COPD (chronic obstructive pulmonary disease) ICD Codes: J44.9 - Chronic obstructive pulmonary disease, unspecified SNOMED: 92154547 (18) positional vertigo (19) KELVIN (obstructive sleep apnea) ICD Codes: G47.33 - Obstructive sleep apnea (adult) (pediatric) SNOMED: 94365462 (20) Peripheral neuropathy ICD Codes: G62.9 - Polyneuropathy, unspecified SNOMED: 925996439 (21) Myelofibrosis ICD Codes: D75.81 - Myelofibrosis SNOMED: 39270243 (22) JAK2 V617F mutation ICD Codes: Z15.89 - Genetic susceptibility to other disease SNOMED: 31034800 (23) UTI (urinary tract infection) ICD Codes: N39.0 - Urinary tract infection, site not specified SNOMED: 92719509 (24) Polycythemia vera ICD Codes: D45 - Polycythemia vera SNOMED: 439691522 (25) Pacemaker ICD Codes: Z95.0 - Presence of cardiac pacemaker SNOMED: 659491921 (26) Acute encephalopathy ICD Codes: G93.40 - Encephalopathy, unspecified SNOMED: 19276556, 467043998 (27) Chronic anticoagulation ICD Codes: Z79.01 - detention (current) use of anticoagulants SNOMED: 376873926 (28) RLL pneumonia ICD Codes: J18.9 - Pneumonia, unspecified organism SNOMED: 094901981 (29) Hematothorax ICD Codes: J94.2 - Hemothorax SNOMED: 39462422 (30) Thoracostomy tube in place ICD Codes: Z96.89 - Presence of other specified functional implants SNOMED: 997546341 (31) Collapse of left lung ICD Codes: J98.11 - Atelectasis SNOMED: 11093218 (32) Paroxysmal A-fib ICD Codes: I48.0 - Paroxysmal atrial fibrillation SNOMED: 061947361 (33) Anemia ICD Codes: D64.9 - Anemia, unspecified SNOMED: 627734464 Qualifiers: Qualified Codes: D64.9 - Anemia, unspecified Errol Estrada Apr 14, 2020 10:29
[2020-04-14 12:52] LABS: HEMATOCRIT 23.1 % (37.0-47.0); HEMOGLOBIN 7.7 G/DL (12.0-16.0); MEAN CORPUSCULAR VOLUME 85 FL (80-99); PLATELET COUNT 291 K/UL (150-450); RED BLOOD COUNT 2.72 M/UL (4.20-5.40); RED CELL DISTRIBUTION WIDTH 15.2 % (11.6-14.8); WHITE BLOOD COUNT 5.6 K/UL (4.8-10.8)
[2020-04-14 13:08] LABS: ALANINE AMINOTRANSFERASE 13 U/L (12-78); ALBUMIN 3.1 G/DL (3.4-5.0); ALBUMIN/GLOBULIN RATIO 0.8 (1.0-2.7); ALKALINE PHOSPHATASE 94 U/L (46-116); ANION GAP 7 mmol/L (5-15); ASPARTATE AMINO TRANSFERASE 15 U/L (15-37); BILIRUBIN,TOTAL 0.7 MG/DL (0.2-1.0); BLOOD UREA NITROGEN 26 mg/dL (7-18); CALCIUM 8.5 MG/DL (8.5-10.1); CARBON DIOXIDE 24 MMOL/L (21-32); CHLORIDE 104 MMOL/L (98-107); CREATININE 0.8 MG/DL (0.55-1.30); PHOSPHORUS 3.1 MG/DL (2.5-4.9); POTASSIUM 4.7 MMOL/L (3.5-5.1); SODIUM 135 MMOL/L (136-145)
--- NOTE | 2020-04-14 13:24 | Internal Med Progress Note ---
Subjective Physician Name Antonio Adrian Attending Physician Antonio Adrian MD Current Medications Medications (Trade) Dose Ordered Sig/Escobar Route PRN Reason Start Time Stop Time Status Last Admin Dose Admin Acetaminophen (Tylenol) 650 mg Q6H PRN ORAL Mild Pain (Pain Scale 1-3) 04/13/20 23:00 05/13/20 22:59 Acetaminophen (Tylenol) 650 mg Q6H PRN ORAL Temp >100.5 04/13/20 23:00 05/13/20 22:59 Amiodarone HCl (Cordarone) 200 mg DAILY ORAL 04/14/20 09:00 07/13/20 08:59 04/14/20 09:00 Bisacodyl (Dulcolax) 5 mg DAILY PRN ORAL Constipation 04/13/20 23:15 07/12/20 23:14 Digoxin (Lanoxin) 0.125 mg DAILY ORAL 04/14/20 09:00 07/13/20 08:59 04/14/20 09:00 Docusate Sodium (Colace) 100 mg TWICE A DAY ORAL 04/14/20 09:00 05/14/20 08:59 04/14/20 09:00 Heparin Sodium (Porcine) (Heparin 5000 units/ml) 5,000 units EVERY 12 HOURS SUBQ 04/14/20 09:00 05/29/20 08:59 04/14/20 09:00 Levothyroxine Sodium (Synthroid) 25 mcg DAILY@0630 ORAL 04/14/20 06:30 05/14/20 06:29 04/14/20 06:23 Multivitamins (Multivitamins) 1 tab DAILY ORAL 04/14/20 09:00 05/14/20 08:59 04/14/20 09:00 Ondansetron HCl (Zofran) 4 mg Q6H PRN IVP Nausea & Vomiting 04/13/20 23:00 05/13/20 22:59 Pantoprazole (Protonix) 40 mg DAILY ORAL 04/14/20 09:00 05/14/20 08:59 04/14/20 09:00 Allergies: Coded Allergies: No Known Allergies (Unverified , 04/24/18) Subjective Awake, alert, responsive, denies any chest pain or shortness of breath, hemoglobin: 7.7 post 2 units PRBC transfusion. Objective Last Vital Signs Date Time Temp Pulse Resp B/P (MAP) Pulse Ox O2 Delivery O2 Flow Rate FiO2 04/14/20 09:00 70 04/14/20 08:00 97.8 20 122/56 (78) 95 04/13/20 22:00 Room Air Laboratory Tests Test 04/13/20 14:11 04/13/20 15:40 04/13/20 19:00 04/14/20 12:30 White Blood Count 5.8 K/UL (4.8-10.8) 5.6 K/UL (4.8-10.8) Red Blood Count 1.85 M/UL (4.20-5.40) L 2.72 M/UL (4.20-5.40) L Hemoglobin 5.3 G/DL (12.0-16.0) *L 7.7 G/DL (12.0-16.0) #L Hematocrit 16.1 % (37.0-47.0) L 23.1 % (37.0-47.0) #L Mean Corpuscular Volume 87 FL (80-99) 85 FL (80-99) Mean Corpuscular Hemoglobin 28.7 PG (27.0-31.0) 28.3 PG (27.0-31.0) Mean Corpuscular Hemoglobin Concent 33.0 G/DL (32.0-36.0) 33.3 G/DL (32.0-36.0) Red Cell Distribution Width 16.4 % (11.6-14.8) H 15.2 % (11.6-14.8) H Platelet Count 290 K/UL (150-450) 291 K/UL (150-450) Mean Platelet Volume 11.9 FL (6.5-10.1) H 10.8 FL (6.5-10.1) H Neutrophils (%) (Auto) % (45.0-75.0) % (45.0-75.0) Lymphocytes (%) (Auto) % (20.0-45.0) % (20.0-45.0) Monocytes (%) (Auto) % (1.0-10.0) % (1.0-10.0) Eosinophils (%) (Auto) % (0.0-3.0) % (0.0-3.0) Basophils (%) (Auto) % (0.0-2.0) % (0.0-2.0) Differential Total Cells Counted 100 Neutrophils % (Manual) 75 % (45-75) Pending Lymphocytes % (Manual) 16 % (20-45) L Pending Monocytes % (Manual) 4 % (1-10) Eosinophils % (Manual) 0 % (0-3) Basophils % (Manual) 3 % (0-2) H Band Neutrophils 2 % (0-8) Reactive Lymphocytes Rare Platelet Estimate Adequate Pending Platelet Morphology Pending Giant Platelets Occasional Hypochromasia 1+ Anisocytosis 2+ Ovalocytes Occasional Prothrombin Time 11.6 SEC (9.30-11.50) H Prothromb Time International Ratio 1.1 (0.9-1.1) Activated Partial Thromboplast Time 24 SEC (23-33) Sodium Level 135 MMOL/L (136-145) L 135 MMOL/L (136-145) L Potassium Level 5.1 MMOL/L (3.5-5.1) 4.7 MMOL/L (3.5-5.1) Chloride Level 103 MMOL/L (98-107) 104 MMOL/L (98-107) Carbon Dioxide Level 22 MMOL/L (21-32) 24 MMOL/L (21-32) Anion Gap 10 mmol/L (5-15) 7 mmol/L (5-15) Blood Urea Nitrogen 37 mg/dL (7-18) H 26 mg/dL (7-18) H Creatinine 0.9 MG/DL (0.55-1.30) 0.8 MG/DL (0.55-1.30) Estimat Glomerular Filtration Rate > 60 mL/min (>60) > 60 mL/min (>60) Glucose Level 145 MG/DL (74-106) H 88 MG/DL (74-106) Calcium Level 8.5 MG/DL (8.5-10.1) 8.5 MG/DL (8.5-10.1) Magnesium Level 2.4 MG/DL (1.8-2.4) 2.3 MG/DL (1.8-2.4) Ferritin 1632 NG/ML (8-388) H Total Bilirubin 0.4 MG/DL (0.2-1.0) 0.7 MG/DL (0.2-1.0) Aspartate Amino Transf (AST/SGOT) 13 U/L (15-37) L 15 U/L (15-37) Alanine Aminotransferase (ALT/SGPT) 12 U/L (12-78) 13 U/L (12-78) Alkaline Phosphatase 103 U/L (46-116) 94 U/L (46-116) Lactate Dehydrogenase 616 U/L (81-234) H Total Creatine Kinase 10 U/L (26-308) L Troponin I 0.000 ng/mL (0.000-0.056) C-Reactive Protein, Quantitative 0.5 mg/dL (0.00-0.90) Pro-B-Type Natriuretic Peptide 2320 pg/mL (0-125) H Total Protein 6.6 G/DL (6.4-8.2) 6.8 G/DL (6.4-8.2) Albumin 3.3 G/DL (3.4-5.0) L 3.1 G/DL (3.4-5.0) L Globulin 3.3 g/dL 3.7 g/dL Albumin/Globulin Ratio 1.0 (1.0-2.7) 0.8 (1.0-2.7) L Lipase 91 U/L (73-393) Lactic Acid Level 1.60 mmol/L (0.4-2.0) Urine Color Pale yellow Urine Appearance Clear Urine pH 7 (4.5-8.0) Urine Specific [place] 1.005 (1.005-1.035) Urine Protein 2+ (NEGATIVE) H Urine Glucose (UA) Negative (NEGATIVE) Urine Ketones Negative (NEGATIVE) Urine Blood Negative (NEGATIVE) Urine Nitrite Negative (NEGATIVE) Urine Bilirubin Negative (NEGATIVE) Urine Urobilinogen Normal MG/DL (0.0-1.0) Urine Leukocyte Esterase Negative (NEGATIVE) Urine RBC 0 /HPF (0 - 2) Urine WBC 0-2 /HPF (0 - 2) Urine Squamous Epithelial Cells Few /LPF (NONE/OCC) Urine Bacteria Occasional /HPF (NONE) Phosphorus Level 3.1 MG/DL (2.5-4.9) Microbiology Date/Time Source Procedure Growth Status 04/13/20 15:00 Nasopharynx SARS-CoV-2 Antigen (Rapid)(DELL) - Final Complete Intake and Output 04/13/20 04/14/20 19:00 07:00 Intake Total 1000 ml 240 ml Balance 1000 ml 240 ml Intake Oral 240 ml IV Total 1000 ml # Voids 7 Objective GENERAL: Awake and responsive, in no acute distress. chronic ill-appearing. HEAD AND NECK: Pupils are equal and reactive to light. Extraocular movements are intact. Neck was supple. No JVD. LUNGS: Good air entry. No wheezing or rales. HEART: S1, S2. Irregular. No murmur or gallops. Pacemaker in left-sided chest wall was noted. ABDOMEN: Soft, nondistended, nontender. Positive bowel sounds. EXTREMITIES: No cyanosis, clubbing, or edema. NEUROLOGIC: Cranial nerves II through XII grossly intact. Motor is 5/5 in upper extremities and 4/5 in bilateral Lower extremities. PSYCHIATRIC: Mood and affect is intact. RECTAL/GENITOURINARY: Refused and deferred. Assessment/Plan Assessment/Plan 1. Severe anemia, most likely secondary to myelofibrosis. 2. Chronic atrial fibrillation. 3. History of polycythemia vera. 4. History of JAK2 mutation. 5. Myelofibrosis with myelodysplastic syndrome. 6. Hypertension. 7. Coronary artery disease. 8. Dyslipidemia. 9. Congestive heart failure. 10. History of right hemothorax, status post video-assisted thoracotomy with exploration on July 02, 2019. 11. Sick sinus syndrome, status post pacemaker. 12. Failure to thrive. 13. Severe protein-calorie malnutrition. PLAN: In medical Unit. Dr. Freitas from Cardiology electrophysiology and Dr. Kaplan from the Hematology-Oncology. Transfuse one units of packed RBC today. Follow up with the laboratory in the morning. Code status: Full Code. DVT prophylaxis: Heparin subcutaneous. Antonio Adrian MD Apr 14, 2020 13:24
--- NOTE | 2020-04-14 13:35 | NUR ---
NURSE NOTES: Dr. Nassar notified of post transfusion, HH 7.7/23.1, orders for transfuse x1 more unit PRBCs, order entered, notified Blood Bank and Dr. Adrian during rounds at bedside.
--- NOTE | 2020-04-14 16:00 | NUR ---
NURSE NOTES: Received call from patient's son Kishan, provided cook roast/oncologist(Dr. Nassar) name and office number as requested, transferred son's call to patient's room , patient refused to take the call, discussed with son, he said he will try back later.
--- NOTE | 2020-04-14 17:14 | History and Physical Report ---
DATE OF ADMISSION: 04/13/2020 CHIEF COMPLAINT: Severe weakness and poor appetite. HISTORY OF PRESENT ILLNESS: This is an 79-year-old very unfortunate female with past medical history significant for chronic atrial fibrillation with prior history of rapid ventricular rate, polycythemia vera, history of CVA, TIA, obstructive sleep apnea, coronary artery disease, dyslipidemia, congestive heart failure, right hemothorax in June 2019, sick sinus syndrome with status post pacemaker, total abdominal hysterectomy, video-assisted thoracotomy with an exploration surgery on July 02, 2019, history of JAK2 mutation myelofibrosis, and myelodysplasia, who presented to emergency department complaining about fatigue, weakness, and lack of appetite. The patient is complaining about neck pain, has not been taking her medication. She denies any fever, chills, nausea, vomiting, or diarrhea. Denies any sore throat, chest pain, abdominal pain, or loss of consciousness. She denies any fall. Shortly after initial evaluation in the emergency department, the patient was noted to be severely anemic with a hemoglobin of 5.3 and subsequently the patient was admitted to the hospital with severe anemia with myelofibrosis and polycythemia vera. PAST MEDICAL HISTORY/PAST SURGICAL HISTORY: As above, history of chronic atrial fibrillation, polycythemia vera, JAK2 mutation, history of CVA with prior history of TIA, obstructive sleep apnea, coronary artery disease, dyslipidemia, congestive heart failure, right hemothorax in June 2019, status post video-assisted thoracotomy exploration on July 02, 2019, sick sinus syndrome with status post pacemaker, total abdominal hysterectomy, COPD, myelofibrosis, myelodysplastic syndrome, profound neutropenia in the past. MEDICATIONS: At home significant for amiodarone 200 mg daily, Lasix 20 mg daily, gabapentin 300 mg three times a day, metoprolol 50 mg b.i.d., and digoxin 0.125 mg daily. No more hydroxyurea. ALLERGIES: No known drug allergies. SOCIAL HISTORY: Denies any smoking, alcohol, or drugs. FAMILY HISTORY: Noncontributory. REVIEW OF SYSTEMS: Mostly as above. Denies any dysuria, frequency, or hematuria. Denies any hemoptysis or hematochezia. Denies any suicidal or homicidal ideation. Denies any loss of consciousness. Denies any fall or trauma. Complained of weakness, fatigue, poor appetite. PHYSICAL EXAMINATION: VITAL SIGNS: On admission, temperature 97, pulse of 65, respiratory rate 14, blood pressure 105/43. GENERAL: The patient is awake and responsive, in no acute distress. The patient is a chronic ill-appearing. HEAD AND NECK: Pupils are equal and reactive to light. Extraocular movements are intact. Neck was supple. No JVD. LUNGS: Good air entry. No wheezing or rales. HEART: S1, S2. Irregular. No murmur or gallops. Pacemaker in left-sided chest wall was noted. ABDOMEN: Soft, nondistended, nontender. Positive bowel sounds. EXTREMITIES: No cyanosis, clubbing, or edema. NEUROLOGIC: Cranial nerves II through XII grossly intact. Motor is 5/5 in all extremities except lower extremities weaker than upper extremity. Lower extremities are 4/5, upper extremity 5/5. PSYCHIATRIC: Mood and affect is intact. RECTAL/GENITOURINARY: Refused and deferred. LABORATORY DATA: Laboratory on admission from the emergency department, WBC of 5.8, hemoglobin of 5.3, hematocrit 16, platelets 290,000. Sodium 135, potassium 5.1, chloride 103, bicarb 22, BUN 37, creatinine 0.9. Glucose is 145. Lactate acid is 1.60. Calcium is 8.5. Magnesium 2.4. Ferritin is 1632. Total bilirubin of 0.4, AST of 13, ALT of 12. Lactate dehydrogenase is 616. Alkaline phosphatase is 103. Troponin 0.00. BNP of 2320. Albumin is 3.3. Lipase . PT of 11, INR 1.1, PTT of 24. Urinalysis, +2 protein, otherwise negative. The patient had a chest x-ray, no acute process. ASSESSMENT: 1. Severe anemia, most likely secondary to myelofibrosis. 2. Chronic atrial fibrillation. 3. History of polycythemia vera. 4. History of JAK2 mutation. 5. Myelofibrosis with myelodysplastic syndrome. 6. Hypertension. 7. Coronary artery disease. 8. Dyslipidemia. 9. Congestive heart failure. 10. History of right hemothorax, status post video-assisted thoracotomy with exploration on July 02, 2019. 11. Sick sinus syndrome, status post pacemaker. 12. Failure to thrive. 13. Severe protein-calorie malnutrition. PLAN: Admit the patient to medical floor. We will follow up with Dr. Freitas from Cardiology electrophysiology and Dr. Kaplan from the Hematology-Oncology. Transfuse two units of packed RBC. Follow up with the laboratory in the morning. Code status is Full Code. DVT prophylaxis, heparin subcutaneous. We will monitor laboratory in the morning. Antonio Adrian M.D. DR: FAITH JOB#: [id number] CC:
--- NOTE | 2020-04-14 18:15 | NUR ---
NURSE NOTES: PRBCs x1 unit started at 1530 and completed at 1815. No adverse reaction noted. Will continue to monitor.
--- NOTE | 2020-04-14 19:08 | NUR ---
NURSE HAND-OFF: Important Events on Shift:HH 7.7 post 2 units PRBCs, order for x1 unit PRBCs (completed at 1815) Patient Status: stable, confused Diet: Regular Pending Orders: none Pending Results/Labs:none Pending MD notification: for LAB orders for 04/15? Latest Vital Signs: Temperature 99.2 , Pulse 90 , B/P 131 /74 , Respiratory Rate 20 , O2 SAT 96 , Room Air, O2 Flow Rate . Vital Sign Comment: none Latest Yepez Fall Score: 45 Fall Risk: High Risk Safety Measures: Call light Within Reach, Bed Alarm Zone 2, Side Rails Side Rails x3, Bed position Low and Locked. Fall Precautions: Yellow Socks Yellow Gown Door Sign Patient Fall Education Report given to Robert ROTH.
--- NOTE | 2020-04-14 19:36 | NUR ---
NURSE NOTES: Received report from Gita ROTH. Patient is awake, alert, and oriented x4. On room air, breathing is even and unlabored. No complains of pain or distress noted. Last BM still unknown. IV right FA intact and patent with no bleeding noted. Bed low and locked. Call light within reach.
--- NOTE | 2020-04-14 19:38 | NUR ---
NURSE NOTES: Patient refuses vital signs. Informed and waiting for reply.
--- NOTE | 2020-04-14 19:55 | NUR ---
NURSE NOTES: Received call back from Dr. Nassar regarding labs for AM, order received for CBC 04/15, will enter order and endorse to night manager nurse.
--- NOTE | 2020-04-14 20:30 | NUR ---
NURSE NOTES: was informed about patient refusing vital signs. He said to leave her alone. Will not take vital signs for this patient.
--- NOTE | 2020-04-14 23:00 | NUR ---
NURSE NOTES: Patient is confused and tries to get out of bed to go to kitchen. RN walked with the patient on the hallway three times. Patient also refused labs. Informed about her condition. Will try labs in the morning. MD aware and no new orders at this time.
--- NOTE | 2020-04-15 00:42 | NUR ---
NURSE NOTES: Patient is asleep and calm at the moment.
[2020-04-15 01:00] VITALS: BP 104/72
--- NOTE | 2020-04-15 01:12 | NUR ---
NURSE NOTES: Patient pulled out an IV and refuses to start new one. Patient doesn't have IV meds. Will inform in the morning.
--- NOTE | 2020-04-15 05:21 | NUR ---
NURSE NOTES: Patient agreed to get blood drawn by collector. Labs done for AM.
[2020-04-15] MEDS: Levothyroxine 25mcg tab ORAL SCH (05:44)
--- NOTE | 2020-04-15 06:21 | NUR ---
NURSE NOTES: Informed about patient having no IV access because she refuses to get new one. Waiting for return message.
[2020-04-15 06:27] LABS: BASOPHILS % (AUTO) 8.4 % (0.0-2.0); EOSINOPHILS % (AUTO) 0.2 % (0.0-3.0); HEMATOCRIT 26.9 % (37.0-47.0); HEMOGLOBIN 9.1 G/DL (12.0-16.0); LYMPHOCYTES % (AUTO) 18.2 % (20.0-45.0); MEAN CORPUSCULAR VOLUME 86 FL (80-99); MONOCYTES % (AUTO) 7.8 % (1.0-10.0); NEUTROPHILS % (AUTO) 65.5 % (45.0-75.0); PLATELET COUNT 235 K/UL (150-450); RED BLOOD COUNT 3.11 M/UL (4.20-5.40); RED CELL DISTRIBUTION WIDTH 15.2 % (11.6-14.8); WHITE BLOOD COUNT 4.7 K/UL (4.8-10.8)
--- NOTE | 2020-04-15 06:33 | Hematology/Onc Progress Note ---
Assessment/Plan Assessment/Plan ASSESSMENT AND RECOMMENDATIONS # Polycythemia vera, JAK2+++. In prior was on hydroxyurea --> was int he past jak2+++ -> consider outpatient hydrea when h/h better --> imaging abd us ordered - Splenomegaly. 3 cm cyst within the spleen probably complex with at least one or 2 septations. Trace right pleural effusion. G allbladder sludge versus stones. --> hold off hydrea at this time # Pancytopenia now with initially with anemia of chronic disease due to underlying chronic medical issues, multifactorial, also due to polycythemia vera, hgb 5 on admission --> Anemia workup has been ordered, rule out gi bleed - results noted and cw acd --> No evidence of hemolysis is noted, peripheral smear has been reviewed. --> Hgb goal >7. Transfuse prn --> low threshold for gi evaluation in case has occult --> Hgb trend:4.8-->5.9-->7.7 --> wbc 3.8-->4 --> Patient received an EGD prior admission, by GI at that time that showed gastritis. No varices # Vertigo. --> per neuro as needed # Atrial fibrillation with rapid ventricular rate. --> Serial troponin levels will be performeD prior and neg --> per cards # Hypertension. Cont on clonidine # Obstructive sleep apnea. # Coronary artery disease. # Hypercholesteremia. # Congestive heart failure. # Dvt ppx heparin sq The time the the note is entered does not reflect the time the patient was examined. I greatly appreciate the consultation. Subjective Constitutional: Denies: no symptoms, chills, fever, malaise, weakness, other HEENT: Denies: no symptoms, eye pain, blurred vision, tearing, double vision, ear pain, ear discharge, nose pain, nose congestion, throat pain, throat swelling, mouth pain, mouth swelling, other Cardiovascular: Denies: no symptoms, chest pain, edema, irregular heart rate, lightheadedness, palpitations, syncope, other Genitourinary: Denies: no symptoms, burning, discharge, frequency, flank pain, hematuria, incontinence, pain, urgency, other Neurologic/Psychiatric: Denies: no symptoms, anxiety, depressed, emotional problems, headache, numbness, paresthesia, pre-existing deficit, seizure, tingling, tremors, weakness, other Endocrine: Denies: no symptoms, excessive sweating, flushing, intolerance to cold, intolerance to heat, increased hunger, increased thirst, increased urine, unexplained weight gain, unexplained weight loss, other Hematologic/Lymphatic: Denies: no symptoms, anemia, easy bleeding, easy bruising, adenopathy, other Allergies: Coded Allergies: No Known Allergies (Unverified , 04/24/18) Subjective 04/15 labs are pending, meds noted, no bleeding,dw rn, no major events Objective Objective Current Medications Medications (Trade) Dose Ordered Sig/Escobar Route PRN Reason Start Time Stop Time Status Last Admin Dose Admin Acetaminophen (Tylenol) 650 mg Q6H PRN ORAL Mild Pain (Pain Scale 1-3) 04/13/20 23:00 05/13/20 22:59 Acetaminophen (Tylenol) 650 mg Q6H PRN ORAL Temp >100.5 04/13/20 23:00 05/13/20 22:59 Amiodarone HCl (Cordarone) 200 mg DAILY ORAL 04/14/20 09:00 07/13/20 08:59 04/14/20 09:00 Bisacodyl (Dulcolax) 5 mg DAILY PRN ORAL Constipation 04/13/20 23:15 07/12/20 23:14 Digoxin (Lanoxin) 0.125 mg DAILY ORAL 04/14/20 09:00 07/13/20 08:59 04/14/20 09:00 Docusate Sodium (Colace) 100 mg TWICE A DAY ORAL 04/14/20 09:00 05/14/20 08:59 04/14/20 18:24 Heparin Sodium (Porcine) (Heparin 5000 units/ml) 5,000 units EVERY 12 HOURS SUBQ 04/14/20 09:00 05/29/20 08:59 04/14/20 20:47 Levothyroxine Sodium (Synthroid) 25 mcg DAILY@0630 ORAL 04/14/20 06:30 05/14/20 06:29 04/15/20 05:44 Multivitamins (Multivitamins) 1 tab DAILY ORAL 04/14/20 09:00 05/14/20 08:59 04/14/20 09:00 Ondansetron HCl (Zofran) 4 mg Q6H PRN IVP Nausea & Vomiting 04/13/20 23:00 05/13/20 22:59 Pantoprazole (Protonix) 40 mg DAILY ORAL 04/14/20 09:00 05/14/20 08:59 04/14/20 09:00 Last 24 Hour Vital Signs Date Time Temp Pulse Resp B/P (MAP) Pulse Ox O2 Delivery O2 Flow Rate FiO2 04/15/20 01:00 99.1 109 20 104/72 (83) 92 04/14/20 21:00 Room Air 04/14/20 18:15 99.2 90 20 131/74 (93) 96 04/14/20 15:45 97.8 73 20 103/50 (67) 96 04/14/20 15:15 99.1 77 18 119/54 (75) 95 04/14/20 12:00 97.8 68 20 111/54 (73) 97 04/14/20 09:00 70 04/14/20 09:00 Room Air 04/14/20 08:00 97.8 65 20 122/56 (78) 95 04/14/20 04:00 98.3 64 18 106/53 (70) 99 04/14/20 00:00 97.9 62 18 110/58 (75) 100 04/13/20 22:00 Room Air 04/13/20 21:10 97.7 64 18 111/56 (74) 100 04/13/20 20:56 97.5 94 15 102/48 100 Room Air 62 04/13/20 19:45 97.5 62 17 98/49 95 04/13/20 19:25 98.2 75 19 97/47 97 Room Air 04/13/20 18:22 98.4 94 20 106/67 100 Room Air 04/13/20 13:52 97.0 65 14 105/43 (63) 97 Room Air Intake and Output 04/14/20 04/15/20 19:00 07:00 Intake Total 610 ml 400 ml Balance 610 ml 400 ml Intake Oral 360 ml 400 ml Blood Product 250 ml # Voids 6 6 Labs Test 04/13/20 14:11 04/13/20 15:40 04/13/20 19:00 04/14/20 12:30 White Blood Count 5.8 K/UL (4.8-10.8) 5.6 K/UL (4.8-10.8) Red Blood Count 1.85 M/UL (4.20-5.40) 2.72 M/UL (4.20-5.40) Hemoglobin 5.3 G/DL (12.0-16.0) 7.7 G/DL (12.0-16.0) Hematocrit 16.1 % (37.0-47.0) 23.1 % (37.0-47.0) Mean Corpuscular Volume 87 FL (80-99) 85 FL (80-99) Mean Corpuscular Hemoglobin 28.7 PG (27.0-31.0) 28.3 PG (27.0-31.0) Mean Corpuscular Hemoglobin Concent 33.0 G/DL (32.0-36.0) 33.3 G/DL (32.0-36.0) Red Cell Distribution Width 16.4 % (11.6-14.8) 15.2 % (11.6-14.8) Platelet Count 290 K/UL (150-450) 291 K/UL (150-450) Mean Platelet Volume 11.9 FL (6.5-10.1) 10.8 FL (6.5-10.1) Neutrophils (%) (Auto) % (45.0-75.0) % (45.0-75.0) Lymphocytes (%) (Auto) % (20.0-45.0) % (20.0-45.0) Monocytes (%) (Auto) % (1.0-10.0) % (1.0-10.0) Eosinophils (%) (Auto) % (0.0-3.0) % (0.0-3.0) Basophils (%) (Auto) % (0.0-2.0) % (0.0-2.0) Differential Total Cells Counted 100 100 Neutrophils % (Manual) 75 % (45-75) 71 % (45-75) Lymphocytes % (Manual) 16 % (20-45) 22 % (20-45) Monocytes % (Manual) 4 % (1-10) 1 % (1-10) Eosinophils % (Manual) 0 % (0-3) 1 % (0-3) Basophils % (Manual) 3 % (0-2) 4 % (0-2) Band Neutrophils 2 % (0-8) 1 % (0-8) Reactive Lymphocytes Rare Occasional Platelet Estimate Adequate Adequate Platelet Morphology Giant Platelets Occasional Occasional Hypochromasia 1+ 1+ Anisocytosis 2+ 1+ Ovalocytes Occasional Prothrombin Time 11.6 SEC (9.30-11.50) Prothromb Time International Ratio 1.1 (0.9-1.1) Activated Partial Thromboplast Time 24 SEC (23-33) Sodium Level 135 MMOL/L (136-145) 135 MMOL/L (136-145) Potassium Level 5.1 MMOL/L (3.5-5.1) 4.7 MMOL/L (3.5-5.1) Chloride Level 103 MMOL/L (98-107) 104 MMOL/L (98-107) Carbon Dioxide Level 22 MMOL/L (21-32) 24 MMOL/L (21-32) Anion Gap 10 mmol/L (5-15) 7 mmol/L (5-15) Blood Urea Nitrogen 37 mg/dL (7-18) 26 mg/dL (7-18) Creatinine 0.9 MG/DL (0.55-1.30) 0.8 MG/DL (0.55-1.30) Estimat Glomerular Filtration Rate > 60 mL/min (>60) > 60 mL/min (>60) Glucose Level 145 MG/DL (74-106) 88 MG/DL (74-106) Calcium Level 8.5 MG/DL (8.5-10.1) 8.5 MG/DL (8.5-10.1) Magnesium Level 2.4 MG/DL (1.8-2.4) 2.3 MG/DL (1.8-2.4) Ferritin 1632 NG/ML (8-388) Total Bilirubin 0.4 MG/DL (0.2-1.0) 0.7 MG/DL (0.2-1.0) Aspartate Amino Transf (AST/SGOT) 13 U/L (15-37) 15 U/L (15-37) Alanine Aminotransferase (ALT/SGPT) 12 U/L (12-78) 13 U/L (12-78) Alkaline Phosphatase 103 U/L (46-116) 94 U/L (46-116) Lactate Dehydrogenase 616 U/L (81-234) Total Creatine Kinase 10 U/L (26-308) Troponin I 0.000 ng/mL (0.000-0.056) C-Reactive Protein, Quantitative 0.5 mg/dL (0.00-0.90) Pro-B-Type Natriuretic Peptide 2320 pg/mL (0-125) Total Protein 6.6 G/DL (6.4-8.2) 6.8 G/DL (6.4-8.2) Albumin 3.3 G/DL (3.4-5.0) 3.1 G/DL (3.4-5.0) Globulin 3.3 g/dL 3.7 g/dL Albumin/Globulin Ratio 1.0 (1.0-2.7) 0.8 (1.0-2.7) Lipase 91 U/L (73-393) Lactic Acid Level 1.60 mmol/L (0.4-2.0) Urine Color Pale yellow Urine Appearance Clear Urine pH 7 (4.5-8.0) Urine Specific Miranda 1.005 (1.005-1.035) Urine Protein 2+ (NEGATIVE) Urine Glucose (UA) Negative (NEGATIVE) Urine Ketones Negative (NEGATIVE) Urine Blood Negative (NEGATIVE) Urine Nitrite Negative (NEGATIVE) Urine Bilirubin Negative (NEGATIVE) Urine Urobilinogen Normal MG/DL (0.0-1.0) Urine Leukocyte Esterase Negative (NEGATIVE) Urine RBC 0 /HPF (0 - 2) Urine WBC 0-2 /HPF (0 - 2) Urine Squamous Epithelial Cells Few /LPF (NONE/OCC) Urine Bacteria Occasional /HPF (NONE) Phosphorus Level 3.1 MG/DL (2.5-4.9) Test 04/15/20 05:05 Height (Feet): 5 Height (Inches): 0.25 Weight (Pounds): 100 Objective Physical Exam Vitals: noted General: thin, other - frail, Chronically Ill Eyes: bilateral eye PERRL, bilateral eye EOMI ENT: moist mucus membranes - slightly dry Neck: full range of motion, no bony tend, other Respiratory: chest non-tender- Pacemaker left Cardiovascular: regular rate, rhythm Gastrointestinal: normal bowel sounds Genitourinary: no CVA tenderness Musculoskeletal: back normal, no calf tenderness, + kyphosis 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
--- NOTE | 2020-04-15 06:55 | NUR ---
NURSE NOTES: Patient's mental status is better now. She is resting without complains.
--- NOTE | 2020-04-15 06:57 | NUR ---
NURSE NOTES: is aware that patient has no IV access.
[2020-04-15 07:02] LABS: PHOSPHORUS 3.1 MG/DL (2.5-4.9)
[2020-04-15 07:18] LABS: ANION GAP 9 mmol/L (5-15); BLOOD UREA NITROGEN 24 mg/dL (7-18); CALCIUM 8.8 MG/DL (8.5-10.1); CARBON DIOXIDE 22 MMOL/L (21-32); CHLORIDE 105 MMOL/L (98-107); CREATININE 0.8 MG/DL (0.55-1.30); POTASSIUM 4.5 MMOL/L (3.5-5.1); SODIUM 136 MMOL/L (136-145)
--- NOTE | 2020-04-15 07:19 | NUR ---
NURSE NOTES: Report received from Robert RN, rounds made. Patient AO to self, calm at this time. Ecuadorean/Icelandic speaking. Respirations even/unlabored on RA. Denies SOB, pain, NV. KAVITA pacemaker noted. No IV access. Plans for PT eval today. Reinforced call light use, BSC/Bedpan with assist, bed in lowest position, will continue to monitor.
--- NOTE | 2020-04-15 07:24 | NUR ---
NURSE HAND-OFF: Important Events on Shift:TPN 85ml/hr, Ileo flush 20cc q3h, ABX Patient Status: Stable Diet: NPO Pending Orders: [] Pending Results/Labs:[] Pending MD notification:[] Latest Vital Signs: Temperature 99.1 , Pulse 109 , B/P 104 /72 , Respiratory Rate 20 , O2 SAT 92 , Room Air, O2 Flow Rate . Vital Sign Comment: VS stable Latest Yepez Fall Score: 45 Fall Risk: High Risk Safety Measures: Call light Within Reach, Bed Alarm Zone 2, Side Rails Side Rails x3, Bed position Low and Locked. Fall Precautions: Yellow Socks Yellow Gown Door Sign Patient Fall Education Report given to Gita ROTH. Addendum: 04/15/20 at 0725 by Robert Gonzalez RN Wrong patient
--- NOTE | 2020-04-15 07:25 | NUR ---
NURSE HAND-OFF: Important Events on Shift: No IV access, refuses vital signs Patient Status: Stable Diet: Regular Pending Orders: [] Pending Results/Labs:[] Pending MD notification:[] Latest Vital Signs: Temperature 99.1 , Pulse 109 , B/P 104 /72 , Respiratory Rate 20 , O2 SAT 92 , Room Air, O2 Flow Rate . Vital Sign Comment: VS stable Latest Yepez Fall Score: 45 Fall Risk: High Risk Safety Measures: Call light Within Reach, Bed Alarm Zone 2, Side Rails Side Rails x3, Bed position Low and Locked. Fall Precautions: Yellow Socks Yellow Gown Door Sign Patient Fall Education Report given to Gita ROTH.
[2020-04-15 08:00] VITALS: BP 106/65
--- NOTE | 2020-04-15 09:07 | NUR ---
PT NOTE Attempted to see patient for PT evaluation. Patient declining to participate with PT evaluation at this time. Will re-attempt later as schedule permits. Gita ROTH notified.
[2020-04-15] MEDS ORDERED: DIGOXIN125 MCG ORAL (09:45)
[2020-04-15] MEDS ORDERED: SYNTHROID25 MCG ORAL (09:45)
[2020-04-15] MEDS: Digoxin 0.125mg tab ORAL SCH (10:07)
[2020-04-15] MEDS: Docusate 100mg cap ORAL SCH ×2 (10:07→17:54)
[2020-04-15] MEDS: Amiodarone 200mg tab ORAL SCH (10:08)
[2020-04-15] MEDS: Heparin 5000 units/ml inj SUBQ SCH ×2 (10:09→21:06)
--- NOTE | 2020-04-15 10:48 | Surgery Progress Note ---
Surgery Progress Note Subjective Additional Comments h/h improved after prbc labs noted exam stable feels okay Objective Last 24 Hour Vital Signs Date Time Temp Pulse Resp B/P (MAP) Pulse Ox O2 Delivery O2 Flow Rate FiO2 04/15/20 10:07 81 04/15/20 08:00 98.7 79 18 106/65 (79) 95 04/15/20 01:00 99.1 109 20 104/72 (83) 92 04/14/20 21:00 Room Air 04/14/20 18:15 99.2 90 20 131/74 (93) 96 04/14/20 15:45 97.8 73 20 103/50 (67) 96 04/14/20 15:15 99.1 77 18 119/54 (75) 95 04/14/20 12:00 97.8 68 20 111/54 (73) 97 I&O Intake and Output 04/14/20 04/15/20 19:00 07:00 Intake Total 610 ml 400 ml Balance 610 ml 400 ml Intake Oral 360 ml 400 ml Blood Product 250 ml # Voids 6 6 Cardiovascular: RSR Respiratory: clear, decreased breath sounds Abdomen: soft, non-tender, present bowel sounds, non-distended Extremities: no edema, no tenderness, no cyanosis Laboratory Tests Test 04/14/20 12:30 04/15/20 05:05 White Blood Count 5.6 K/UL (4.8-10.8) 4.7 K/UL (4.8-10.8) L Red Blood Count 2.72 M/UL (4.20-5.40) L 3.11 M/UL (4.20-5.40) L Hemoglobin 7.7 G/DL (12.0-16.0) #L 9.1 G/DL (12.0-16.0) L Hematocrit 23.1 % (37.0-47.0) #L 26.9 % (37.0-47.0) L Mean Corpuscular Volume 85 FL (80-99) 86 FL (80-99) Mean Corpuscular Hemoglobin 28.3 PG (27.0-31.0) 29.2 PG (27.0-31.0) Mean Corpuscular Hemoglobin Concent 33.3 G/DL (32.0-36.0) 33.7 G/DL (32.0-36.0) Red Cell Distribution Width 15.2 % (11.6-14.8) H 15.2 % (11.6-14.8) H Platelet Count 291 K/UL (150-450) 235 K/UL (150-450) Mean Platelet Volume 10.8 FL (6.5-10.1) H 11.3 FL (6.5-10.1) H Neutrophils (%) (Auto) % (45.0-75.0) 65.5 % (45.0-75.0) Lymphocytes (%) (Auto) % (20.0-45.0) 18.2 % (20.0-45.0) L Monocytes (%) (Auto) % (1.0-10.0) 7.8 % (1.0-10.0) Eosinophils (%) (Auto) % (0.0-3.0) 0.2 % (0.0-3.0) Basophils (%) (Auto) % (0.0-2.0) 8.4 % (0.0-2.0) H Differential Total Cells Counted 100 Neutrophils % (Manual) 71 % (45-75) Lymphocytes % (Manual) 22 % (20-45) Monocytes % (Manual) 1 % (1-10) Eosinophils % (Manual) 1 % (0-3) Basophils % (Manual) 4 % (0-2) H Band Neutrophils 1 % (0-8) Reactive Lymphocytes Occasional Platelet Estimate Adequate Platelet Morphology Giant Platelets Occasional Hypochromasia 1+ Anisocytosis 1+ Sodium Level 135 MMOL/L (136-145) L 136 MMOL/L (136-145) Potassium Level 4.7 MMOL/L (3.5-5.1) 4.5 MMOL/L (3.5-5.1) Chloride Level 104 MMOL/L (98-107) 105 MMOL/L (98-107) Carbon Dioxide Level 24 MMOL/L (21-32) 22 MMOL/L (21-32) Anion Gap 7 mmol/L (5-15) 9 mmol/L (5-15) Blood Urea Nitrogen 26 mg/dL (7-18) H 24 mg/dL (7-18) H Creatinine 0.8 MG/DL (0.55-1.30) 0.8 MG/DL (0.55-1.30) Estimat Glomerular Filtration Rate > 60 mL/min (>60) > 60 mL/min (>60) Glucose Level 88 MG/DL (74-106) 104 MG/DL (74-106) Calcium Level 8.5 MG/DL (8.5-10.1) 8.8 MG/DL (8.5-10.1) Phosphorus Level 3.1 MG/DL (2.5-4.9) 3.1 MG/DL (2.5-4.9) Magnesium Level 2.3 MG/DL (1.8-2.4) 2.3 MG/DL (1.8-2.4) Total Bilirubin 0.7 MG/DL (0.2-1.0) Aspartate Amino Transf (AST/SGOT) 15 U/L (15-37) Alanine Aminotransferase (ALT/SGPT) 13 U/L (12-78) Alkaline Phosphatase 94 U/L (46-116) Total Protein 6.8 G/DL (6.4-8.2) Albumin 3.1 G/DL (3.4-5.0) L Globulin 3.7 g/dL Albumin/Globulin Ratio 0.8 (1.0-2.7) L Troponin I 0.005 ng/mL (0.000-0.056) Thyroid Stimulating Hormone (TSH) 3.903 uiU/mL (0.358-3.740) Plan Problems: (1) COVID-19 ruled out by laboratory testing (2) Profound anemia (3) Neck pain Assessment & Plan: 79-year-old female complaining of posterior neck pain. States cramping has only been ongoing recently feels she may have been sleeping on the wrong side. States she slept well last night and feels little bit better today. No nausea vomiting fever chills. Labs noted severe anemia no leukocyto sis. Blood transfusion pending. Okay for warm compress per okay for anti- inflammatory no abscess no mass identified. Physical exam fairly benign. Will follow with recommendations and clinical examination. Okay for diet from surgical standpoint. Thank you will follow with recommendations. prior CT reviewed from last admission FINDINGS: Pulmonary arteries: Unremarkable. No pulmonary embolism. Aorta: No thoracic aortic aneurysm. Lungs: Atelectatic volume loss and consolidation in bilateral lower lobes. Pleural space: Mild to moderate bilateral layering pleural effusions. Heart: Cardiomegaly. No pericardial effusion. No evidence of RV dysfunction. Bones/joints: Multilevel degenerative changes throughout the visualized spine with disc space loss and endplate osteophytes. No acute fracture. No dislocation. Soft tissues: Unremarkable. Lymph nodes: Unremarkable. No enlarged lymph nodes. Tubes, lines and devices: Cardiac pacer in the left chest wall with the lead tips in the right atrium and right ventricle. Upper abdomen: Incidental note of a 3.5 cm hypodensity in the superior aspect of spine, possibly a cyst or hemangioma. IMPRESSION: 1. Mild to moderate bilateral layering pleural effusions. 2. Atelectatic volume loss and consolidation in bilateral lower lobes. 3. No evidence of pulmonary embolism. 4. Cardiomegaly. 5. Incidental note of a 3.5 cm hypodensity in the superior aspect of spine, possibly a cyst or hemangioma. 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
[2020-04-15 12:00] VITALS: BP 110/71
--- NOTE | 2020-04-15 14:03 | Internal Med Progress Note ---
Subjective Physician Name Antonio Adrian Attending Physician Antonio Adrian MD Current Medications Medications (Trade) Dose Ordered Sig/Escobar Route PRN Reason Start Time Stop Time Status Last Admin Dose Admin Acetaminophen (Tylenol) 650 mg Q6H PRN ORAL Mild Pain (Pain Scale 1-3) 04/13/20 23:00 05/13/20 22:59 Acetaminophen (Tylenol) 650 mg Q6H PRN ORAL Temp >100.5 04/13/20 23:00 05/13/20 22:59 Amiodarone HCl (Cordarone) 200 mg DAILY ORAL 04/14/20 09:00 07/13/20 08:59 04/15/20 10:08 Bisacodyl (Dulcolax) 5 mg DAILY PRN ORAL Constipation 04/13/20 23:15 07/12/20 23:14 Digoxin (Lanoxin) 0.125 mg DAILY ORAL 04/14/20 09:00 07/13/20 08:59 04/15/20 10:07 Docusate Sodium (Colace) 100 mg TWICE A DAY ORAL 04/14/20 09:00 05/14/20 08:59 04/15/20 10:07 Heparin Sodium (Porcine) (Heparin 5000 units/ml) 5,000 units EVERY 12 HOURS SUBQ 04/14/20 09:00 05/29/20 08:59 04/15/20 10:09 Levothyroxine Sodium (Synthroid) 25 mcg DAILY@0630 ORAL 04/14/20 06:30 05/14/20 06:29 04/15/20 05:44 Multivitamins (Multivitamins) 1 tab DAILY ORAL 04/14/20 09:00 05/14/20 08:59 04/15/20 10:08 Ondansetron HCl (Zofran) 4 mg Q6H PRN IVP Nausea & Vomiting 04/13/20 23:00 05/13/20 22:59 Pantoprazole (Protonix) 40 mg DAILY ORAL 04/14/20 09:00 05/14/20 08:59 04/15/20 10:08 Allergies: Coded Allergies: No Known Allergies (Unverified , 04/24/18) Subjective Awake, alert, responsive, denies any chest pain or shortness of breath, hemoglobin: 9.1, Feeling "Better". Objective Last Vital Signs Date Time Temp Pulse Resp B/P (MAP) Pulse Ox O2 Delivery O2 Flow Rate FiO2 04/15/20 10:07 81 04/15/20 08:00 98.7 18 106/65 (79) 95 04/14/20 21:00 Room Air Laboratory Tests Test 04/15/20 05:05 White Blood Count 4.7 K/UL (4.8-10.8) L Red Blood Count 3.11 M/UL (4.20-5.40) L Hemoglobin 9.1 G/DL (12.0-16.0) L Hematocrit 26.9 % (37.0-47.0) L Mean Corpuscular Volume 86 FL (80-99) Mean Corpuscular Hemoglobin 29.2 PG (27.0-31.0) Mean Corpuscular Hemoglobin Concent 33.7 G/DL (32.0-36.0) Red Cell Distribution Width 15.2 % (11.6-14.8) H Platelet Count 235 K/UL (150-450) Mean Platelet Volume 11.3 FL (6.5-10.1) H Neutrophils (%) (Auto) 65.5 % (45.0-75.0) Lymphocytes (%) (Auto) 18.2 % (20.0-45.0) L Monocytes (%) (Auto) 7.8 % (1.0-10.0) Eosinophils (%) (Auto) 0.2 % (0.0-3.0) Basophils (%) (Auto) 8.4 % (0.0-2.0) H Sodium Level 136 MMOL/L (136-145) Potassium Level 4.5 MMOL/L (3.5-5.1) Chloride Level 105 MMOL/L (98-107) Carbon Dioxide Level 22 MMOL/L (21-32) Anion Gap 9 mmol/L (5-15) Blood Urea Nitrogen 24 mg/dL (7-18) H Creatinine 0.8 MG/DL (0.55-1.30) Estimat Glomerular Filtration Rate > 60 mL/min (>60) Glucose Level 104 MG/DL (74-106) Calcium Level 8.8 MG/DL (8.5-10.1) Phosphorus Level 3.1 MG/DL (2.5-4.9) Magnesium Level 2.3 MG/DL (1.8-2.4) Troponin I 0.005 ng/mL (0.000-0.056) Thyroid Stimulating Hormone (TSH) 3.903 uiU/mL (0.358-3.740) Microbiology Date/Time Source Procedure Growth Status 04/13/20 15:40 Blood Blood Culture - Preliminary NO GROWTH AFTER 24 HOURS Resulted 04/13/20 15:15 Blood Blood Culture - Preliminary NO GROWTH AFTER 24 HOURS Resulted 04/13/20 15:00 Nasopharynx SARS-CoV-2 Antigen (Rapid)(DELL) - Final Complete Intake and Output 04/14/20 04/15/20 19:00 07:00 Intake Total 610 ml 400 ml Balance 610 ml 400 ml Intake Oral 360 ml 400 ml Blood Product 250 ml # Voids 6 6 Objective GENERAL: Awake and responsive, in no acute distress. chronic ill-appearing. HEAD AND NECK: Pupils are equal and reactive to light. Extraocular movements are intact. Neck was supple. No JVD. LUNGS: Good air entry. No wheezing or rales. HEART: S1, S2. Irregular. No murmur or gallops. Pacemaker in left-sided chest wall was noted. ABDOMEN: Soft, nondistended, nontender. Positive bowel sounds. EXTREMITIES: No cyanosis, clubbing, or edema. NEUROLOGIC: Cranial nerves II through XII grossly intact. Motor is 5/5 in upper extremities and 4/5 in bilateral Lower extremities. PSYCHIATRIC: Mood and affect is intact. RECTAL/GENITOURINARY: Refused and deferred. Assessment/Plan Assessment/Plan 1. Severe anemia, most likely secondary to myelofibrosis. 2. Chronic atrial fibrillation. 3. History of polycythemia vera. 4. History of JAK2 mutation. 5. Myelofibrosis with myelodysplastic syndrome. 6. Hypertension. 7. Coronary artery disease. 8. Dyslipidemia. 9. Congestive heart failure. 10. History of right hemothorax, status post video-assisted thoracotomy with exploration on July 02, 2019. 11. Sick sinus syndrome, status post pacemaker. 12. Failure to thrive. 13. Severe protein-calorie malnutrition. PLAN: In medical Unit. Dr. Freitas from Cardiology electrophysiology and Dr. Kaplan from the Hematology-Oncology. Transfuse REBC as needed. Follow up with the laboratory Code status: Full Code. DVT prophylaxis: Heparin subcutaneous. PT Mobility Antonio Adrian MD Apr 15, 2020 14:03
[2020-04-15 16:00] VITALS: BP 109/67
[2020-04-15 20:00] VITALS: BP 109/72
--- NOTE | 2020-04-15 20:00 | NUR ---
NURSE NOTES: RECEIVED PATIENT LYING IN BED, EYES OPEN, NOTED WITH FLAT EFFECT, PASSIVE, LESS VERBAL, REFUSED PHYSICAL THERAPY TODAY. NO IV ACCESS, MD AWARE. NO SIGNS AND SYMPTOMS OF ACUTE CARDIO RESPIRATORY DISTRESS/SHORTNESS OF BREATH, NO PERIPHERAL EDEMA NOTED. ABDOMEN SOFT/NON DISTENDED/NON TENDER/AUDIBLE BOWEL SOUNDS, NO REPORT OF N/V/D. SIDE RAILS UP X3 FOR SAFETY, BED IN LOWEST POSITION, BED ALARM ACTIVATED FOR PREVENTIVE MEASURES. CONTINUE WITH CURRENT PLAN OF CARE. VITALS STABLE, AFEBRILE. NAD.
--- NOTE | 2020-04-15 20:00 | NUR ---
NURSE HAND-OFF: Important Events on Shift:Updated family on patient status x2 this shift Patient Status: stable Diet: Regular Pending Orders: none Pending Results/Labs:none Pending MD notification:none Latest Vital Signs: Temperature 98.1 , Pulse 65 , B/P 109 /72 , Respiratory Rate 18 , O2 SAT 97 , Room Air, O2 Flow Rate . Vital Sign Comment: none Latest Yepez Fall Score: 25 Fall Risk: Medium Risk Safety Measures: Call light Within Reach, Bed Alarm Zone 2, Side Rails Side Rails x3, Bed position Low and Locked. Fall Precautions: Yellow Socks Yellow Gown Door Sign Patient Fall Education Report given to Kristin ROTH.
--- NOTE | 2020-04-15 22:46 | Cardiac Electrophysiology PN ---
Assessment/Plan Assessment/Plan 1. Hypertension. Resume Lopressor 25 po bid 2. Status post [employer] pacer in 2010 and generator change by me in 2019. 3. Paroxysmal atrial fibrillation with rapid ventricular response. On digoxin, metoprolol and amiodarone. Off anticoagulation for recurrent bleeding and profound anemia. Dig level 0.9 4. Profound anemia with hemoglobin of 3 to 4. S/P 6 units of PRBC in 01/2020 S/P 4 units of PRBC again in 04/03 5. History of hemothorax, status post VATS. 6. Pulmonary hypertension. 7. Myelofibrosis. Subjective Subjective Readmitted with weakness and severe anemia. Got 21 unit of PRBC. No CP Objective Last 24 Hour Vital Signs Date Time Temp Pulse Resp B/P (MAP) Pulse Ox O2 Delivery O2 Flow Rate FiO2 04/15/20 21:23 Room Air 04/15/20 20:00 98.1 65 18 109/72 (84) 97 04/15/20 16:00 97.9 73 19 109/67 (81) 98 04/15/20 12:00 98.1 80 18 110/71 (84) 96 04/15/20 10:07 81 04/15/20 09:00 Room Air 04/15/20 08:00 98.7 79 18 106/65 (79) 95 04/15/20 01:00 99.1 109 20 104/72 (83) 92 Intake and Output 04/14/20 04/15/20 19:00 07:00 Intake Total 610 ml 400 ml Balance 610 ml 400 ml Intake Oral 360 ml 400 ml Blood Product 250 ml # Voids 6 6 Laboratory Tests Test 04/15/20 05:05 White Blood Count 4.7 K/UL (4.8-10.8) L Red Blood Count 3.11 M/UL (4.20-5.40) L Hemoglobin 9.1 G/DL (12.0-16.0) L Hematocrit 26.9 % (37.0-47.0) L Mean Corpuscular Volume 86 FL (80-99) Mean Corpuscular Hemoglobin 29.2 PG (27.0-31.0) Mean Corpuscular Hemoglobin Concent 33.7 G/DL (32.0-36.0) Red Cell Distribution Width 15.2 % (11.6-14.8) H Platelet Count 235 K/UL (150-450) Mean Platelet Volume 11.3 FL (6.5-10.1) H Neutrophils (%) (Auto) 65.5 % (45.0-75.0) Lymphocytes (%) (Auto) 18.2 % (20.0-45.0) L Monocytes (%) (Auto) 7.8 % (1.0-10.0) Eosinophils (%) (Auto) 0.2 % (0.0-3.0) Basophils (%) (Auto) 8.4 % (0.0-2.0) H Sodium Level 136 MMOL/L (136-145) Potassium Level 4.5 MMOL/L (3.5-5.1) Chloride Level 105 MMOL/L (98-107) Carbon Dioxide Level 22 MMOL/L (21-32) Anion Gap 9 mmol/L (5-15) Blood Urea Nitrogen 24 mg/dL (7-18) H Creatinine 0.8 MG/DL (0.55-1.30) Estimat Glomerular Filtration Rate > 60 mL/min (>60) Glucose Level 104 MG/DL (74-106) Calcium Level 8.8 MG/DL (8.5-10.1) Phosphorus Level 3.1 MG/DL (2.5-4.9) Magnesium Level 2.3 MG/DL (1.8-2.4) Troponin I 0.005 ng/mL (0.000-0.056) Thyroid Stimulating Hormone (TSH) 3.903 uiU/mL (0.358-3.740) Microbiology Date/Time Source Procedure Growth Status 04/13/20 15:40 Blood Blood Culture - Preliminary NO GROWTH AFTER 24 HOURS Resulted 04/13/20 15:15 Blood Blood Culture - Preliminary NO GROWTH AFTER 24 HOURS Resulted 04/13/20 15:00 Nasopharynx SARS-CoV-2 Antigen (Rapid)(DELL) - Final Complete Objective HEAD AND NECK: Showed no JVD. LUNGS: Clear. CARDIOVASCULAR: Regular S1 and S2 with no gallop. Pacemaker in left subclavian. ABDOMEN: Soft. EXTREMITIES: No pitting edema. River Freitas MD Apr 15, 2020 22:46
[2020-04-16] VITALS: BP 120/61
[2020-04-16 04:00] VITALS: BP 126/58
[2020-04-16] MEDS: Levothyroxine 25mcg tab ORAL SCH (06:52)
--- NOTE | 2020-04-16 06:56 | NUR ---
NURSE HAND-OFF: Important Events on Shift:[UNEVENTFUL NIGHT, RESTED WELL] Patient Status: [FULL CODE, RESTED WELL THROUGHOUT THE NIGHT, SAFETY MAINTAINED] Diet: [REGULAR] Pending Orders: [N/A] Pending Results/Labs:[N/A] Pending MD notification:[N/A] Latest Vital Signs: Temperature 97.9 , Pulse 60 , B/P 126 /58 , Respiratory Rate 18 , O2 SAT 97 , Room Air, O2 Flow Rate . Vital Sign Comment: [] Latest Yepez Fall Score: 25 Fall Risk: Medium Risk Safety Measures: Call light Within Reach, Bed Alarm Zone 2, Side Rails Side Rails x3, Bed position Low and Locked. Fall Precautions: Yellow Socks Yellow Gown Door Sign Patient Fall Education Report given to [IRA FINLEY].
--- NOTE | 2020-04-16 07:45 | NUR ---
NURSE NOTES: Report received from Laura ROTH, rounds made. Patient awake, alert and oriented, able to make needs known. Respirations even/unlabored on RA. No acute distress, Denies any pain at this time. No IV access. MD aware. Educated pt to use call light for assistance. bed in lowest position, will continue to monitor.
[2020-04-16 08:00] VITALS: BP 129/62
[2020-04-16] MEDS: Docusate 100mg cap ORAL SCH ×2 (09:12→17:26)
[2020-04-16] MEDS: Digoxin 0.125mg tab ORAL SCH (09:12)
[2020-04-16] MEDS: Amiodarone 200mg tab ORAL SCH (09:12)
[2020-04-16] MEDS: Heparin 5000 units/ml inj SUBQ SCH ×2 (09:14→20:49)
--- NOTE | 2020-04-16 09:18 | Hematology/Onc Progress Note ---
Assessment/Plan Assessment/Plan # Polycythemia vera, JAK2+++. In prior was on hydroxyurea --> was int he past jak2+++ -> consider outpatient hydrea when h/h better --> imaging abd us ordered - Splenomegaly. 3 cm cyst within the spleen probably complex with at least one or 2 septations. Trace right pleural effusion. Gallbladder sludge versus stones. --> hold off hydrea at this time # Pancytopenia now with initially with anemia of chronic disease due to u nderlying chronic medical issues, multifactorial, also due to polycythemia vera, hgb 5 on admission --> Anemia workup has been ordered, rule out gi bleed - results noted and cw acd --> No evidence of hemolysis is noted, peripheral smear has been reviewed. --> Hgb goal >7. Transfuse prn --> low threshold for gi evaluation in case has occult --> Hgb trend:4.8-->5.9-->7.7 --> wbc 3.8-->4 --> Patient received an EGD prior admission, by GI at that time that showed gastritis. No varices # Vertigo. --> per neuro as needed # Atrial fibrillation with rapid ventricular rate. --> Serial troponin levels will be performeD prior and neg --> per cards # Hypertension. Cont on clonidine # Obstructive sleep apnea. # Coronary artery disease. # Hypercholesteremia. # Congestive heart failure. # Dvt ppx heparin sq The time the the note is entered does not reflect the time the patient was examined. I greatly appreciate the consultation. Subjective Allergies: Coded Allergies: No Known Allergies (Unverified , 04/24/18) Subjective 04/16: no acute evetns no distress, VSS Objective Objective Current Medications Medications (Trade) Dose Ordered Sig/Escobar Route PRN Reason Start Time Stop Time Status Last Admin Dose Admin Acetaminophen (Tylenol) 650 mg Q6H PRN ORAL Mild Pain (Pain Scale 1-3) 04/13/20 23:00 05/13/20 22:59 Acetaminophen (Tylenol) 650 mg Q6H PRN ORAL Temp >100.5 04/13/20 23:00 05/13/20 22:59 Amiodarone HCl (Cordarone) 200 mg DAILY ORAL 04/14/20 09:00 07/13/20 08:59 04/16/20 09:12 Bisacodyl (Dulcolax) 5 mg DAILY PRN ORAL Constipation 04/13/20 23:15 07/12/20 23:14 Digoxin (Lanoxin) 0.125 mg DAILY ORAL 04/14/20 09:00 07/13/20 08:59 04/16/20 09:12 Docusate Sodium (Colace) 100 mg TWICE A DAY ORAL 04/14/20 09:00 05/14/20 08:59 04/16/20 09:12 Heparin Sodium (Porcine) (Heparin 5000 units/ml) 5,000 units EVERY 12 HOURS SUBQ 04/14/20 09:00 05/29/20 08:59 04/16/20 09:14 Levothyroxine Sodium (Synthroid) 25 mcg DAILY@0630 ORAL 04/14/20 06:30 05/14/20 06:29 04/16/20 06:52 Metoprolol Tartrate (Lopressor) 12.5 mg Q12HR ORAL 04/16/20 09:00 07/15/20 08:59 04/16/20 09:13 Multivitamins (Multivitamins) 1 tab DAILY ORAL 04/14/20 09:00 05/14/20 08:59 04/16/20 09:12 Ondansetron HCl (Zofran) 4 mg Q6H PRN IVP Nausea & Vomiting 04/13/20 23:00 05/13/20 22:59 Pantoprazole (Protonix) 40 mg DAILY ORAL 04/14/20 09:00 05/14/20 08:59 04/16/20 09:12 Last 24 Hour Vital Signs Date Time Temp Pulse Resp B/P (MAP) Pulse Ox O2 Delivery O2 Flow Rate FiO2 04/16/20 09:13 64 129/62 04/16/20 09:12 64 04/16/20 09:00 Room Air 04/16/20 08:00 97.4 64 18 129/62 (84) 97 04/16/20 04:00 97.9 60 18 126/58 (80) 97 04/16/20 00:00 97.7 63 16 120/61 (80) 98 04/15/20 21:23 Room Air 04/15/20 20:00 98.1 65 18 109/72 (84) 97 04/15/20 16:00 97.9 73 19 109/67 (81) 98 04/15/20 12:00 98.1 80 18 110/71 (84) 96 04/15/20 10:07 81 04/15/20 09:00 Room Air 04/15/20 08:00 98.7 79 18 106/65 (79) 95 04/15/20 01:00 99.1 109 20 104/72 (83) 92 04/14/20 21:00 Room Air 04/14/20 18:15 99.2 90 20 131/74 (93) 96 04/14/20 15:45 97.8 73 20 103/50 (67) 96 04/14/20 15:15 99.1 77 18 119/54 (75) 95 04/14/20 12:00 97.8 68 20 111/54 (73) 97 Intake and Output 04/15/20 04/16/20 19:00 07:00 Intake Total 350 ml 360 ml Balance 350 ml 360 ml Intake Oral 360 ml Other 350 ml # Voids 1 Labs Test 04/13/20 14:11 04/13/20 15:40 04/13/20 19:00 04/14/20 12:30 White Blood Count 5.8 K/UL (4.8-10.8) 5.6 K/UL (4.8-10.8) Red Blood Count 1.85 M/UL (4.20-5.40) 2.72 M/UL (4.20-5.40) Hemoglobin 5.3 G/DL (12.0-16.0) 7.7 G/DL (12.0-16.0) Hematocrit 16.1 % (37.0-47.0) 23.1 % (37.0-47.0) Mean Corpuscular Volume 87 FL (80-99) 85 FL (80-99) Mean Corpuscular Hemoglobin 28.7 PG (27.0-31.0) 28.3 PG (27.0-31.0) Mean Corpuscular Hemoglobin Concent 33.0 G/DL (32.0-36.0) 33.3 G/DL (32.0-36.0) Red Cell Distribution Width 16.4 % (11.6-14.8) 15.2 % (11.6-14.8) Platelet Count 290 K/UL (150-450) 291 K/UL (150-450) Mean Platelet Volume 11.9 FL (6.5-10.1) 10.8 FL (6.5-10.1) Neutrophils (%) (Auto) % (45.0-75.0) % (45.0-75.0) Lymphocytes (%) (Auto) % (20.0-45.0) % (20.0-45.0) Monocytes (%) (Auto) % (1.0-10.0) % (1.0-10.0) Eosinophils (%) (Auto) % (0.0-3.0) % (0.0-3.0) Basophils (%) (Auto) % (0.0-2.0) % (0.0-2.0) Differential Total Cells Counted 100 100 Neutrophils % (Manual) 75 % (45-75) 71 % (45-75) Lymphocytes % (Manual) 16 % (20-45) 22 % (20-45) Monocytes % (Manual) 4 % (1-10) 1 % (1-10) Eosinophils % (Manual) 0 % (0-3) 1 % (0-3) Basophils % (Manual) 3 % (0-2) 4 % (0-2) Band Neutrophils 2 % (0-8) 1 % (0-8) Reactive Lymphocytes Rare Occasional Platelet Estimate Adequate Adequate Platelet Morphology Giant Platelets Occasional Occasional Hypochromasia 1+ 1+ Anisocytosis 2+ 1+ Ovalocytes Occasional Prothrombin Time 11.6 SEC (9.30-11.50) Prothromb Time International Ratio 1.1 (0.9-1.1) Activated Partial Thromboplast Time 24 SEC (23-33) Sodium Level 135 MMOL/L (136-145) 135 MMOL/L (136-145) Potassium Level 5.1 MMOL/L (3.5-5.1) 4.7 MMOL/L (3.5-5.1) Chloride Level 103 MMOL/L (98-107) 104 MMOL/L (98-107) Carbon Dioxide Level 22 MMOL/L (21-32) 24 MMOL/L (21-32) Anion Gap 10 mmol/L (5-15) 7 mmol/L (5-15) Blood Urea Nitrogen 37 mg/dL (7-18) 26 mg/dL (7-18) Creatinine 0.9 MG/DL (0.55-1.30) 0.8 MG/DL (0.55-1.30) Estimat Glomerular Filtration Rate > 60 mL/min (>60) > 60 mL/min (>60) Glucose Level 145 MG/DL (74-106) 88 MG/DL (74-106) Calcium Level 8.5 MG/DL (8.5-10.1) 8.5 MG/DL (8.5-10.1) Magnesium Level 2.4 MG/DL (1.8-2.4) 2.3 MG/DL (1.8-2.4) Ferritin 1632 NG/ML (8-388) Total Bilirubin 0.4 MG/DL (0.2-1.0) 0.7 MG/DL (0.2-1.0) Aspartate Amino Transf (AST/SGOT) 13 U/L (15-37) 15 U/L (15-37) Alanine Aminotransferase (ALT/SGPT) 12 U/L (12-78) 13 U/L (12-78) Alkaline Phosphatase 103 U/L (46-116) 94 U/L (46-116) Lactate Dehydrogenase 616 U/L (81-234) Total Creatine Kinase 10 U/L (26-308) Troponin I 0.000 ng/mL (0.000-0.056) C-Reactive Protein, Quantitative 0.5 mg/dL (0.00-0.90) Pro-B-Type Natriuretic Peptide 2320 pg/mL (0-125) Total Protein 6.6 G/DL (6.4-8.2) 6.8 G/DL (6.4-8.2) Albumin 3.3 G/DL (3.4-5.0) 3.1 G/DL (3.4-5.0) Globulin 3.3 g/dL 3.7 g/dL Albumin/Globulin Ratio 1.0 (1.0-2.7) 0.8 (1.0-2.7) Lipase 91 U/L (73-393) Lactic Acid Level 1.60 mmol/L (0.4-2.0) Urine Color Pale yellow Urine Appearance Clear Urine pH 7 (4.5-8.0) Urine Specific [place] 1.005 (1.005-1.035) Urine Protein 2+ (NEGATIVE) Urine Glucose (UA) Negative (NEGATIVE) Urine Ketones Negative (NEGATIVE) Urine Blood Negative (NEGATIVE) Urine Nitrite Negative (NEGATIVE) Urine Bilirubin Negative (NEGATIVE) Urine Urobilinogen Normal MG/DL (0.0-1.0) Urine Leukocyte Esterase Negative (NEGATIVE) Urine RBC 0 /HPF (0 - 2) Urine WBC 0-2 /HPF (0 - 2) Urine Squamous Epithelial Cells Few /LPF (NONE/OCC) Urine Bacteria Occasional /HPF (NONE) Phosphorus Level 3.1 MG/DL (2.5-4.9) Test 04/15/20 05:05 White Blood Count 4.7 K/UL (4.8-10.8) Red Blood Count 3.11 M/UL (4.20-5.40) Hemoglobin 9.1 G/DL (12.0-16.0) Hematocrit 26.9 % (37.0-47.0) Mean Corpuscular Volume 86 FL (80-99) Mean Corpuscular Hemoglobin 29.2 PG (27.0-31.0) Mean Corpuscular Hemoglobin Concent 33.7 G/DL (32.0-36.0) Red Cell Distribution Width 15.2 % (11.6-14.8) Platelet Count 235 K/UL (150-450) Mean Platelet Volume 11.3 FL (6.5-10.1) Neutrophils (%) (Auto) 65.5 % (45.0-75.0) Lymphocytes (%) (Auto) 18.2 % (20.0-45.0) Monocytes (%) (Auto) 7.8 % (1.0-10.0) Eosinophils (%) (Auto) 0.2 % (0.0-3.0) Basophils (%) (Auto) 8.4 % (0.0-2.0) Sodium Level 136 MMOL/L (136-145) Potassium Level 4.5 MMOL/L (3.5-5.1) Chloride Level 105 MMOL/L (98-107) Carbon Dioxide Level 22 MMOL/L (21-32) Anion Gap 9 mmol/L (5-15) Blood Urea Nitrogen 24 mg/dL (7-18) Creatinine 0.8 MG/DL (0.55-1.30) Estimat Glomerular Filtration Rate > 60 mL/min (>60) Glucose Level 104 MG/DL (74-106) Calcium Level 8.8 MG/DL (8.5-10.1) Phosphorus Level 3.1 MG/DL (2.5-4.9) Magnesium Level 2.3 MG/DL (1.8-2.4) Troponin I 0.005 ng/mL (0.000-0.056) Thyroid Stimulating Hormone (TSH) 3.903 uiU/mL (0.358-3.740) Height (Feet): 5 Height (Inches): 0.25 Weight (Pounds): 100 Objective Physical Exam Vitals: noted General: thin, other - frail, Chronically Ill Eyes: bilateral eye PERRL, bilateral eye EOMI ENT: moist mucus membranes - slightly dry Neck: full range of motion, no bony tend, other Respiratory: chest non-tender- Pacemaker left Cardiovascular: regular rate, rhythm Gastrointestinal: normal bowel sounds Genitourinary: no CVA tenderness Musculoskeletal: back normal, no calf tenderness, + kyphosis Neurologic: alert, soils technician III-XII nml as tested Skin: warm/dry - cool feet, pallor Haven Thornton NP Apr 16, 2020 09:18
--- NOTE | 2020-04-16 09:40 | Surgery Progress Note ---
Surgery Progress Note Subjective Additional Comments afebrile, HD stable comfortable heme input noted no n/v/f/c tolerating diet neck pain improved Objective Last 24 Hour Vital Signs Date Time Temp Pulse Resp B/P (MAP) Pulse Ox O2 Delivery O2 Flow Rate FiO2 04/16/20 09:13 64 129/62 04/16/20 09:12 64 04/16/20 09:00 Room Air 04/16/20 08:00 97.4 64 18 129/62 (84) 97 04/16/20 04:00 97.9 60 18 126/58 (80) 97 04/16/20 00:00 97.7 63 16 120/61 (80) 98 04/15/20 21:23 Room Air 04/15/20 20:00 98.1 65 18 109/72 (84) 97 04/15/20 16:00 97.9 73 19 109/67 (81) 98 04/15/20 12:00 98.1 80 18 110/71 (84) 96 04/15/20 10:07 81 I&O Intake and Output 04/15/20 04/16/20 19:00 07:00 Intake Total 350 ml 360 ml Balance 350 ml 360 ml Intake Oral 360 ml Other 350 ml # Voids 1 Cardiovascular: RSR Respiratory: clear Abdomen: soft, flat, non-tender, present bowel sounds, non-distended Extremities: no edema, no tenderness, no cyanosis Plan Problems: (1) COVID-19 ruled out by laboratory testing (2) Profound anemia (3) Neck pain Assessment & Plan: 79-year-old female complaining of posterior neck pain. States cramping has only been ongoing recently feels she may have been sleeping on the wrong side. States she slept well last night and feels little bit better today. No nausea vomiting fever chills. Labs noted severe anemia no leukocytosis. Blood transfusion pending. Okay for warm compress per okay for anti-inflammatory no abscess no mass identified. Physical exam fairly benign. Will follow with recommendations and clinical examination. Okay for diet from surgical standpoint. Thank you will follow with recommendations. prior CT reviewed from last admission FINDINGS: Pulmonary arteries: Unremarkable. No pulmonary embolism. Aorta: No thoracic aortic aneurysm. Lungs: Atelectatic volume loss and consolidation in bilateral lower lobes. Pleural space: Mild to moderate bilateral layering pleural effusions. Heart: Cardiomegaly. No pericardial effusion. No evidence of RV dysfunction. Bones/joints: Multilevel degenerative changes throughout the visualized spine with disc space loss and endplate osteophytes. No acute fracture. No dislocation. Soft tissues: Unremarkable. Lymph nodes: Unremarkable. No enlarged lymph nodes. Tubes, lines and devices: Cardiac pacer in the left chest wall with the lead tips in the right atrium and right ventricle. Upper abdomen: Incidental note of a 3.5 cm hypodensity in the superior aspect of spine, possibly a cyst or hemangioma. IMPRESSION: 1. Mild to moderate bilateral layering pleural effusions. 2. Atelectatic volume loss and consolidation in bilateral lower lobes. 3. No evidence of pulmonary embolism. 4. Cardiomegaly. 5. Incidental note of a 3.5 cm hypodensity in the superior aspect of spine, possibly a cyst or hemangioma. incidental much lower unlikely related to neck pain (4) Generalized weakness (5) Failure to thrive (6) Proteinuria (7) Altered mental state (8) Hypotension (9) Protein-calorie malnutrition, severe (10) Abnormal LFTs (11) Severe anemia (12) Symptomatic anemia (13) Signs and symptoms of anemia (14) ACS (acute coronary syndrome) (15) Pyelonephritis (16) CAD (coronary artery disease) (17) COPD (chronic obstructive pulmonary disease) (18) positional vertigo (19) KELVIN (obstructive sleep apnea) (20) Peripheral neuropathy (21) Myelofibrosis (22) JAK2 V617F mutation (23) UTI (urinary tract infection) (24) Polycythemia vera (25) Pacemaker (26) Acute encephalopathy (27) Chronic anticoagulation (28) RLL pneumonia (29) Hematothorax (30) Thoracostomy tube in place (31) Collapse of left lung (32) Paroxysmal A-fib (33) Anemia Errol Estrada Apr 16, 2020 09:40
[2020-04-16 11:56] VITALS: BP 116/62
--- NOTE | 2020-04-16 13:45 | Cardiac Electrophysiology PN ---
Assessment/Plan Assessment/Plan 1. Hypertension. On Lopressor 25 po bid 2. Status post [employer] pacer in 2010 and generator change by me in 2018. 3. Paroxysmal atrial fibrillation with rapid ventricular response. On digoxin, metoprolol and amiodarone. Off anticoagulation for recurrent bleeding and profound anemia. 4. Profound anemia with hemoglobin of 3 to 4. S/P 6 units of PRBC in 01/2020 S/P 4 units of PRBC again in 04/03 Had another unit on 04/14/20 5. History of hemothorax, status post VATS. 6. Pulmonary hypertension. 7. Myelofibrosis. Subjective Subjective Readmitted with weakness and severe anemia. Got another unit of PRBC. No CP Objective Last 24 Hour Vital Signs Date Time Temp Pulse Resp B/P (MAP) Pulse Ox O2 Delivery O2 Flow Rate FiO2 04/16/20 11:56 98.4 65 18 116/62 (80) 96 04/16/20 09:13 64 129/62 04/16/20 09:12 64 04/16/20 09:00 Room Air 04/16/20 08:00 97.4 64 18 129/62 (84) 97 04/16/20 04:00 97.9 60 18 126/58 (80) 97 04/16/20 00:00 97.7 63 16 120/61 (80) 98 04/15/20 21:23 Room Air 04/15/20 20:00 98.1 65 18 109/72 (84) 97 04/15/20 16:00 97.9 73 19 109/67 (81) 98 Intake and Output 04/15/20 04/16/20 19:00 07:00 Intake Total 350 ml 360 ml Balance 350 ml 360 ml Intake Oral 360 ml Other 350 ml # Voids 1 Microbiology Date/Time Source Procedure Growth Status 04/13/20 15:40 Blood Blood Culture - Preliminary NO GROWTH AFTER 48 HOURS Resulted 04/13/20 15:15 Blood Blood Culture - Preliminary NO GROWTH AFTER 48 HOURS Resulted 04/13/20 15:00 Nasopharynx SARS-CoV-2 Antigen (Rapid)(DELL) - Final Complete Objective HEAD AND NECK: Showed no JVD. LUNGS: Clear. CARDIOVASCULAR: Regular S1 and S2 with no gallop. Pacemaker in left subclavian. ABDOMEN: Soft. EXTREMITIES: No pitting edema. River Freitas MD Apr 16, 2020 13:45
--- NOTE | 2020-04-16 14:18 | NUR ---
PT Note Attempted to see patient for eval/treatment x 2 but patient refused. will try again in AM.
--- NOTE | 2020-04-16 15:25 | Internal Med Progress Note ---
Subjective Date of Service: Apr 16, 2020 Physician Name Roshan Edwards Attending Physician Antonio Adrian MD Current Medications Medications (Trade) Dose Ordered Sig/Escobar Route PRN Reason Start Time Stop Time Status Last Admin Dose Admin Acetaminophen (Tylenol) 650 mg Q6H PRN ORAL Mild Pain (Pain Scale 1-3) 04/13/20 23:00 05/13/20 22:59 Acetaminophen (Tylenol) 650 mg Q6H PRN ORAL Temp >100.5 04/13/20 23:00 05/13/20 22:59 Amiodarone HCl (Cordarone) 200 mg DAILY ORAL 04/14/20 09:00 07/13/20 08:59 04/16/20 09:12 Bisacodyl (Dulcolax) 5 mg DAILY PRN ORAL Constipation 04/13/20 23:15 07/12/20 23:14 Digoxin (Lanoxin) 0.125 mg DAILY ORAL 04/14/20 09:00 07/13/20 08:59 04/16/20 09:12 Docusate Sodium (Colace) 100 mg TWICE A DAY ORAL 04/14/20 09:00 05/14/20 08:59 04/16/20 09:12 Heparin Sodium (Porcine) (Heparin 5000 units/ml) 5,000 units EVERY 12 HOURS SUBQ 04/14/20 09:00 05/29/20 08:59 04/16/20 09:14 Levothyroxine Sodium (Synthroid) 25 mcg DAILY@0630 ORAL 04/14/20 06:30 05/14/20 06:29 04/16/20 06:52 Metoprolol Tartrate (Lopressor) 12.5 mg Q12HR ORAL 04/16/20 09:00 07/15/20 08:59 04/16/20 09:13 Multivitamins (Multivitamins) 1 tab DAILY ORAL 04/14/20 09:00 05/14/20 08:59 04/16/20 09:12 Ondansetron HCl (Zofran) 4 mg Q6H PRN IVP Nausea & Vomiting 04/13/20 23:00 05/13/20 22:59 Pantoprazole (Protonix) 40 mg DAILY ORAL 04/14/20 09:00 05/14/20 08:59 04/16/20 09:12 Allergies: Coded Allergies: No Known Allergies (Unverified , 04/24/18) ROS Limited/Unobtainable: Yes Subjective 79 YO F with history of myelodysplastic syndrome admitted with fatigue and generalized weakness. Now severe anemia. Cover for Int Med-Dr Adrian Objective Last Vital Signs Date Time Temp Pulse Resp B/P (MAP) Pulse Ox O2 Delivery O2 Flow Rate FiO2 04/16/20 11:56 98.4 65 18 116/62 (80) 96 04/16/20 09:00 Room Air Microbiology Date/Time Source Procedure Growth Status 04/13/20 15:40 Blood Blood Culture - Preliminary NO GROWTH AFTER 48 HOURS Resulted Intake and Output 04/15/20 04/16/20 19:00 07:00 Intake Total 350 ml 360 ml Balance 350 ml 360 ml Intake Oral 360 ml Other 350 ml # Voids 1 Objective Objective GENERAL: Awake and responsive, in no acute distress. chronic ill-appearing. HEAD AND NECK: Pupils are equal and reactive to light. Extraocular movements are intact. Neck was supple. No JVD. LUNGS: Good air entry. No wheezing or rales. HEART: S1, S2. Irregular. No murmur or gallops. Pacemaker in left-sided chest wall was noted. ABDOMEN: Soft, nondistended, nontender. Positive bowel sounds. EXTREMITIES: No cyanosis, clubbing, or edema. NEUROLOGIC: Cranial nerves II through XII grossly intact. Motor is 5/5 in upper extremities and 4/5 in bilateral Lower extremities. PSYCHIATRIC: Mood and affect is intact. RECTAL/GENITOURINARY: Refused and deferred. Assessment/Plan Assessment/Plan Assessment/Plan Assessment/Plan 1. Severe anemia, most likely secondary to myelofibrosis. 2. Chronic atrial fibrillation. 3. History of polycythemia vera. 4. History of JAK2 mutation. 5. Myelofibrosis with myelodysplastic syndrome. 6. Hypertension. 7. Coronary artery disease. 8. Dyslipidemia. 9. Congestive heart failure. 10. History of right hemothorax, status post video-assisted thoracotomy with exploration on July 02, 2019. 11. Sick sinus syndrome, status post pacemaker. 12. Failure to thrive. 13. Severe protein-calorie malnutrition. PLAN: In medical Unit. Dr. Freitas from Cardiology electrophysiology Dr. Kaplan = Hematology-Oncology. S/P Transfusion 2 units PRBC Follow up with the laboratory Code status: Full Code. DVT prophylaxis: Heparin subcutaneous. PT Mobility Roshan Edwards MD Apr 16, 2020 15:25
--- NOTE | 2020-04-16 15:45 | NUR ---
NURSE NOTES: Noted pt had frequent small urinations in the morning and afternoon. Denies burning feeling or pain when voiding. no fever. MD aware. Obtained urine culture order. Will collect urine and follow up.
[2020-04-16 16:00] VITALS: BP 108/61
--- NOTE | 2020-04-16 19:20 | NUR ---
NURSE HAND-OFF: Important Events on Shift:[Frequent urination, small urine. Urine culture, pending collection. No fever, denies discomfort or pain] Patient Status: [] Diet: [Reg] Pending Orders: [Urine culture] Pending Results/Labs:[] Pending MD notification:[] Latest Vital Signs: Temperature 96.6 , Pulse 67 , B/P 108 /61 , Respiratory Rate 18 , O2 SAT 100 , Room Air, O2 Flow Rate . Vital Sign Comment: [stable] Latest Yepez Fall Score: 25 Fall Risk: Medium Risk Safety Measures: Call light Within Reach, Bed Alarm Zone 2, Side Rails Side Rails x3, Bed position Low and Locked. Fall Precautions: Yellow Socks Yellow Gown Door Sign Patient Fall Education Report given to [IRA Sanchez].
--- NOTE | 2020-04-16 19:30 | NUR ---
NURSE NOTES: RECEIVED PATIENT LYING IN BED, AWAKE, VERBALLY RESPONSIVE, DINNER TRAY AT BEDSIDE, ASSISTED PATIENT WITH MEAL, NOTED WITH POOR APPETITE, TOLERATED SUPPLEMENT DRINK. NO IV ACCESS, MD AWARE. NO SIGNS AND SYMPTOMS OF ACUTE CARDIO RESPIRATORY DISTRESS/SHORTNESS OF BREATH, NO EDEMA NOTED. NO COMPLAINTS OF GI DISCOMFORT, NO N/V/D REPORTED, LARGE SOFT BOWEL MOVEMENT. SIDE RAILS UP X3, BED IN LOWEST POSITION FOR SAFETY, FREQUENT ROUNDING FOR SAFETY/NEEDS, CONTINUE WITH CURRENT PLAN OF CARE. NAD.
[2020-04-16 20:00] VITALS: BP 110/62
--- NOTE | 2020-04-16 22:41 | NUR ---
NURSE NOTES:URINE SENT TO LAB FOR CULTURE-
[2020-04-17] VITALS: BP 111/61
[2020-04-17 04:00] VITALS: BP 114/64
[2020-04-17] MEDS: Levothyroxine 25mcg tab ORAL SCH (06:35)
--- NOTE | 2020-04-17 07:15 | NUR ---
NURSE HAND-OFF: Important Events on Shift:[FREQUENT URINATION, MD AWARE, ORDERED URINE COLLECTED, COLLECTED AND SENT TO LAB, DENIES PAINFUL/BURNING SENSATION WHEN URINATING, PATIENT CALLING OUT FOR ASSISTANCE INSTEAD OF UTILIZING CALL LIGHT, CORRECTED BEHAVIOR MULTIPLE TIMES UNSUCCESSFULLY] Patient Status: [FULL CODE, NAD] Diet: [REGULAR, NOTED WITH POOR INTAKE] Pending Orders: [AM LABS] Pending Results/Labs:[] Pending MD notification:[] Latest Vital Signs: Temperature 97.7 , Pulse 69 , B/P 114 /64 , Respiratory Rate 18 , O2 SAT 99 , Room Air, O2 Flow Rate . Vital Sign Comment: [IRA ALCANTAR] Latest Yepez Fall Score: 25 Fall Risk: Medium Risk Safety Measures: Call light Within Reach, Bed Alarm Zone 2, Side Rails Side Rails x3, Bed position Low and Locked. Fall Precautions: Yellow Socks Yellow Gown Door Sign Patient Fall Education Report given to [].
--- NOTE | 2020-04-17 07:16 | NUR ---
NURSE NOTES: Handoff received from Tammi ROTH. Patient is awake and alert, eating breakfast, mostly polish speaking, no reports of pain or discomfort at this time. No IV access at this time, MD is aware. Bed is low and locked, side rails up x2, call light is within reach.
[2020-04-17 08:00] VITALS: BP 97/47
[2020-04-17] MEDS: Docusate 100mg cap ORAL SCH ×2 (08:53→17:07)
[2020-04-17] MEDS: Amiodarone 200mg tab ORAL SCH (08:53)
[2020-04-17] MEDS: Digoxin 0.125mg tab ORAL SCH (08:53)
[2020-04-17] MEDS: Heparin 5000 units/ml inj SUBQ SCH ×2 (08:55→21:11)
--- NOTE | 2020-04-17 09:45 | Hematology/Onc Progress Note ---
Assessment/Plan Assessment/Plan # Polycythemia vera, JAK2+++. In prior was on hydroxyurea --> was int he past jak2+++ -> consider outpatient hydrea when h/h better --> imaging abd us ordered - Splenomegaly. 3 cm cyst within the spleen probably complex with at least one or 2 septations. Trace right pleural effusion. Gallbladder sludge versus stones. --> hold off hydrea at this time # Pancytopenia now with initially with anemia of chronic disease due to u nderlying chronic medical issues, multifactorial, also due to polycythemia vera, hgb 5 on admission --> Anemia workup has been ordered, rule out gi bleed - results noted and cw acd --> No evidence of hemolysis is noted, peripheral smear has been reviewed. --> Hgb goal >7. Transfuse prn --> low threshold for gi evaluation in case has occult --> Hgb trend:4.8-->5.9-->7.7 --> wbc 3.8-->4 --> Patient received an EGD prior admission, by GI at that time that showed gastritis. No varices # Vertigo. --> per neuro as needed # Atrial fibrillation with rapid ventricular rate. --> Serial troponin levels will be performeD prior and neg --> per cards # Hypertension. Cont on clonidine # Obstructive sleep apnea. # Coronary artery disease. # Hypercholesteremia. # Congestive heart failure. # Dvt ppx heparin sq The time the the note is entered does not reflect the time the patient was examined. I greatly appreciate the consultation. Subjective Allergies: Coded Allergies: No Known Allergies (Unverified , 04/24/18) Subjective 04/16: no acute evetns no distress, VSS 04/17: tolerated breakfast no distress. Objective Objective Current Medications Medications (Trade) Dose Ordered Sig/Escobar Route PRN Reason Start Time Stop Time Status Last Admin Dose Admin Acetaminophen (Tylenol) 650 mg Q6H PRN ORAL Mild Pain (Pain Scale 1-3) 04/13/20 23:00 05/13/20 22:59 Acetaminophen (Tylenol) 650 mg Q6H PRN ORAL Temp >100.5 04/13/20 23:00 05/13/20 22:59 Amiodarone HCl (Cordarone) 200 mg DAILY ORAL 04/14/20 09:00 07/13/20 08:59 04/17/20 08:53 Bisacodyl (Dulcolax) 5 mg DAILY PRN ORAL Constipation 04/13/20 23:15 07/12/20 23:14 Digoxin (Lanoxin) 0.125 mg DAILY ORAL 04/14/20 09:00 07/13/20 08:59 04/17/20 08:53 Docusate Sodium (Colace) 100 mg TWICE A DAY ORAL 04/14/20 09:00 05/14/20 08:59 04/17/20 08:53 Heparin Sodium (Porcine) (Heparin 5000 units/ml) 5,000 units EVERY 12 HOURS SUBQ 04/14/20 09:00 05/29/20 08:59 04/17/20 08:55 Levothyroxine Sodium (Synthroid) 25 mcg DAILY@0630 ORAL 04/14/20 06:30 05/14/20 06:29 04/17/20 06:35 Metoprolol Tartrate (Lopressor) 12.5 mg Q12HR ORAL 04/16/20 09:00 07/15/20 08:59 04/16/20 20:41 Multivitamins (Multivitamins) 1 tab DAILY ORAL 04/14/20 09:00 05/14/20 08:59 04/17/20 08:52 Ondansetron HCl (Zofran) 4 mg Q6H PRN IVP Nausea & Vomiting 04/13/20 23:00 05/13/20 22:59 Pantoprazole (Protonix) 40 mg DAILY ORAL 04/14/20 09:00 05/14/20 08:59 04/17/20 08:53 Last 24 Hour Vital Signs Date Time Temp Pulse Resp B/P (MAP) Pulse Ox O2 Delivery O2 Flow Rate FiO2 04/17/20 08:53 70 04/17/20 08:43 70 97/47 04/17/20 04:00 97.7 69 18 114/64 (81) 99 04/17/20 00:00 98.4 72 18 111/61 (78) 96 04/16/20 21:00 Room Air 04/16/20 20:57 Room Air 04/16/20 20:41 68 110/62 04/16/20 20:00 97.3 68 18 110/62 (78) 99 04/16/20 16:00 96.6 67 18 108/61 (77) 100 04/16/20 11:56 98.4 65 18 116/62 (80) 96 04/16/20 09:13 64 129/62 04/16/20 09:12 64 04/16/20 09:00 Room Air 04/16/20 08:00 97.4 64 18 129/62 (84) 97 04/16/20 04:00 97.9 60 18 126/58 (80) 97 04/16/20 00:00 97.7 63 16 120/61 (80) 98 04/15/20 21:23 Room Air 04/15/20 20:00 98.1 65 18 109/72 (84) 97 04/15/20 16:00 97.9 73 19 109/67 (81) 98 04/15/20 12:00 98.1 80 18 110/71 (84) 96 04/15/20 10:07 81 Intake and Output 04/16/20 04/17/20 19:00 07:00 Intake Total 480 ml 360 ml Balance 480 ml 360 ml Intake Oral 480 ml 360 ml # Voids 5 10 # Bowel Movements 1 Labs Test 04/14/20 12:30 04/15/20 05:05 White Blood Count 5.6 K/UL (4.8-10.8) 4.7 K/UL (4.8-10.8) Red Blood Count 2.72 M/UL (4.20-5.40) 3.11 M/UL (4.20-5.40) Hemoglobin 7.7 G/DL (12.0-16.0) 9.1 G/DL (12.0-16.0) Hematocrit 23.1 % (37.0-47.0) 26.9 % (37.0-47.0) Mean Corpuscular Volume 85 FL (80-99) 86 FL (80-99) Mean Corpuscular Hemoglobin 28.3 PG (27.0-31.0) 29.2 PG (27.0-31.0) Mean Corpuscular Hemoglobin Concent 33.3 G/DL (32.0-36.0) 33.7 G/DL (32.0-36.0) Red Cell Distribution Width 15.2 % (11.6-14.8) 15.2 % (11.6-14.8) Platelet Count 291 K/UL (150-450) 235 K/UL (150-450) Mean Platelet Volume 10.8 FL (6.5-10.1) 11.3 FL (6.5-10.1) Neutrophils (%) (Auto) % (45.0-75.0) 65.5 % (45.0-75.0) Lymphocytes (%) (Auto) % (20.0-45.0) 18.2 % (20.0-45.0) Monocytes (%) (Auto) % (1.0-10.0) 7.8 % (1.0-10.0) Eosinophils (%) (Auto) % (0.0-3.0) 0.2 % (0.0-3.0) Basophils (%) (Auto) % (0.0-2.0) 8.4 % (0.0-2.0) Differential Total Cells Counted 100 Neutrophils % (Manual) 71 % (45-75) Lymphocytes % (Manual) 22 % (20-45) Monocytes % (Manual) 1 % (1-10) Eosinophils % (Manual) 1 % (0-3) Basophils % (Manual) 4 % (0-2) Band Neutrophils 1 % (0-8) Reactive Lymphocytes Occasional Platelet Estimate Adequate Platelet Morphology Giant Platelets Occasional Hypochromasia 1+ Anisocytosis 1+ Sodium Level 135 MMOL/L (136-145) 136 MMOL/L (136-145) Potassium Level 4.7 MMOL/L (3.5-5.1) 4.5 MMOL/L (3.5-5.1) Chloride Level 104 MMOL/L (98-107) 105 MMOL/L (98-107) Carbon Dioxide Level 24 MMOL/L (21-32) 22 MMOL/L (21-32) Anion Gap 7 mmol/L (5-15) 9 mmol/L (5-15) Blood Urea Nitrogen 26 mg/dL (7-18) 24 mg/dL (7-18) Creatinine 0.8 MG/DL (0.55-1.30) 0.8 MG/DL (0.55-1.30) Estimat Glomerular Filtration Rate > 60 mL/min (>60) > 60 mL/min (>60) Glucose Level 88 MG/DL (74-106) 104 MG/DL (74-106) Calcium Level 8.5 MG/DL (8.5-10.1) 8.8 MG/DL (8.5-10.1) Phosphorus Level 3.1 MG/DL (2.5-4.9) 3.1 MG/DL (2.5-4.9) Magnesium Level 2.3 MG/DL (1.8-2.4) 2.3 MG/DL (1.8-2.4) Total Bilirubin 0.7 MG/DL (0.2-1.0) Aspartate Amino Transf (AST/SGOT) 15 U/L (15-37) Alanine Aminotransferase (ALT/SGPT) 13 U/L (12-78) Alkaline Phosphatase 94 U/L (46-116) Total Protein 6.8 G/DL (6.4-8.2) Albumin 3.1 G/DL (3.4-5.0) Globulin 3.7 g/dL Albumin/Globulin Ratio 0.8 (1.0-2.7) Troponin I 0.005 ng/mL (0.000-0.056) Thyroid Stimulating Hormone (TSH) 3.903 uiU/mL (0.358-3.740) Height (Feet): 5 Height (Inches): 0.25 Weight (Pounds): 100 Objective Physical Exam Vitals: noted General: thin, other - frail, Chronically Ill Eyes: bilateral eye PERRL, bilateral eye EOMI ENT: moist mucus membranes - slightly dry Neck: full range of motion, no bony tend, other Respiratory: chest non-tender- Pacemaker left Cardiovascular: regular rate, rhythm Gastrointestinal: normal bowel sounds Genitourinary: no CVA tenderness Musculoskeletal: back normal, no calf tenderness, + kyphosis Neurologic: alert, primary care nurse practitioner III-XII nml as tested Skin: warm/dry - cool feet, pallor Haven Thornton NP Apr 17, 2020 09:45
[2020-04-17 10:32] LABS: HEMATOCRIT 22.7 % (37.0-47.0); HEMOGLOBIN 7.6 G/DL (12.0-16.0); MEAN CORPUSCULAR VOLUME 87 FL (80-99); PLATELET COUNT 233 K/UL (150-450); RED BLOOD COUNT 2.61 M/UL (4.20-5.40); RED CELL DISTRIBUTION WIDTH 15.1 % (11.6-14.8); WHITE BLOOD COUNT 3.6 K/UL (4.8-10.8)
[2020-04-17 10:53] LABS: ALANINE AMINOTRANSFERASE 13 U/L (12-78); ALBUMIN 2.5 G/DL (3.4-5.0); ALBUMIN/GLOBULIN RATIO 0.7 (1.0-2.7); ALKALINE PHOSPHATASE 86 U/L (46-116); ANION GAP 7 mmol/L (5-15); ASPARTATE AMINO TRANSFERASE 14 U/L (15-37); BILIRUBIN,TOTAL 0.5 MG/DL (0.2-1.0); BLOOD UREA NITROGEN 29 mg/dL (7-18); CALCIUM 8.6 MG/DL (8.5-10.1); CARBON DIOXIDE 26 MMOL/L (21-32); CHLORIDE 107 MMOL/L (98-107); CREATININE 0.8 MG/DL (0.55-1.30); POTASSIUM 4.2 MMOL/L (3.5-5.1); SODIUM 139 MMOL/L (136-145)
--- NOTE | 2020-04-17 10:59 | Surgery Progress Note ---
Surgery Progress Note Subjective Additional Comments no bleeding h/h trending down no n/v resting comfortable Objective Last 24 Hour Vital Signs Date Time Temp Pulse Resp B/P (MAP) Pulse Ox O2 Delivery O2 Flow Rate FiO2 04/17/20 09:00 Room Air 04/17/20 08:53 70 04/17/20 08:43 70 97/47 04/17/20 08:00 98.1 70 19 97/47 (64) 97 04/17/20 04:00 97.7 69 18 114/64 (81) 99 04/17/20 00:00 98.4 72 18 111/61 (78) 96 04/16/20 21:00 Room Air 04/16/20 20:57 Room Air 04/16/20 20:41 68 110/62 04/16/20 20:00 97.3 68 18 110/62 (78) 99 04/16/20 16:00 96.6 67 18 108/61 (77) 100 04/16/20 11:56 98.4 65 18 116/62 (80) 96 I&O Intake and Output 04/16/20 04/17/20 19:00 07:00 Intake Total 480 ml 360 ml Balance 480 ml 360 ml Intake Oral 480 ml 360 ml # Voids 5 10 # Bowel Movements 1 Cardiovascular: RSR Respiratory: clear Abdomen: soft, flat, non-tender, present bowel sounds, non-distended Extremities: no edema, no tenderness, no cyanosis Laboratory Tests Test 04/17/20 09:45 White Blood Count 3.6 K/UL (4.8-10.8) L Red Blood Count 2.61 M/UL (4.20-5.40) L Hemoglobin 7.6 G/DL (12.0-16.0) L Hematocrit 22.7 % (37.0-47.0) L Mean Corpuscular Volume 87 FL (80-99) Mean Corpuscular Hemoglobin 29.1 PG (27.0-31.0) Mean Corpuscular Hemoglobin Concent 33.4 G/DL (32.0-36.0) Red Cell Distribution Width 15.1 % (11.6-14.8) H Platelet Count 233 K/UL (150-450) Mean Platelet Volume 12.2 FL (6.5-10.1) H Neutrophils (%) (Auto) % (45.0-75.0) Lymphocytes (%) (Auto) % (20.0-45.0) Monocytes (%) (Auto) % (1.0-10.0) Eosinophils (%) (Auto) % (0.0-3.0) Basophils (%) (Auto) % (0.0-2.0) Neutrophils % (Manual) Pending Lymphocytes % (Manual) Pending Platelet Estimate Pending Platelet Morphology Pending Sodium Level 139 MMOL/L (136-145) Potassium Level 4.2 MMOL/L (3.5-5.1) Chloride Level 107 MMOL/L (98-107) Carbon Dioxide Level 26 MMOL/L (21-32) Anion Gap 7 mmol/L (5-15) Blood Urea Nitrogen 29 mg/dL (7-18) H Creatinine 0.8 MG/DL (0.55-1.30) Estimat Glomerular Filtration Rate > 60 mL/min (>60) Glucose Level 125 MG/DL (74-106) H Calcium Level 8.6 MG/DL (8.5-10.1) Total Bilirubin 0.5 MG/DL (0.2-1.0) Aspartate Amino Transf (AST/SGOT) 14 U/L (15-37) L Alanine Aminotransferase (ALT/SGPT) 13 U/L (12-78) Alkaline Phosphatase 86 U/L (46-116) Total Protein 6.0 G/DL (6.4-8.2) L Albumin 2.5 G/DL (3.4-5.0) L Globulin 3.5 g/dL Albumin/Globulin Ratio 0.7 (1.0-2.7) L Plan Problems: (1) COVID-19 ruled out by laboratory testing (2) Profound anemia (3) Neck pain Assessment & Plan: 79-year-old female complaining of posterior neck pain. States cramping has only been ongoing recently feels she may have been sleeping on the wrong side. States she slept well last night and feels little bit better today. No nausea vomiting fever chills. Labs noted severe anemia no leukocytosis. Blood transfusion pending. Okay for warm compress per okay for anti-inflammatory no abscess no mass identified. Physical exam fairly benign. Will follow with recommendations and clinical examination. Okay for diet from surgical standpoint. Thank you will follow with recommendations. prior CT reviewed from last admission FINDINGS: Pulmonary arteries: Unremarkable. No pulmonary embolism. Aorta: No thoracic aortic aneurysm. Lungs: Atelectatic volume loss and consolidation in bilateral lower lobes. Pleural space: Mild to moderate bilateral layering pleural effusions. Heart: Cardiomegaly. No pericardial effusion. No evidence of RV dysfunction. Bones/joints: Multilevel degenerative changes throughout the visualized spine with disc space loss and endplate osteophytes. No acute fracture. No dislocation. Soft tissues: Unremarkable. Lymph nodes: Unremarkable. No enlarged lymph nodes. Tubes, lines and devices: Cardiac pacer in the left chest wall with the lead tips in the right atrium and right ventricle. Upper abdomen: Incidental note of a 3.5 cm hypodensity in the superior aspect of spine, possibly a cyst or hemangioma. IMPRESSION: 1. Mild to moderate bilateral layering pleural effusions. 2. Atelectatic volume loss and consolidation in bilateral lower lobes. 3. No evidence of pulmonary embolism. 4. Cardiomegaly. 5. Incidental note of a 3.5 cm hypodensity in the superior aspect of spine, possibly a cyst or hemangioma. incidental much lower unlikely related to neck pain (4) Generalized weakness (5) Failure to thrive (6) Proteinuria (7) Altered mental state (8) Hypotension (9) Protein-calorie malnutrition, severe (10) Abnormal LFTs (11) Severe anemia (12) Symptomatic anemia (13) Signs and symptoms of anemia (14) ACS (acute coronary syndrome) (15) Pyelonephritis (16) CAD (coronary artery disease) (17) COPD (chronic obstructive pulmonary disease) (18) positional vertigo (19) KELVIN (obstructive sleep apnea) (20) Peripheral neuropathy (21) Myelofibrosis (22) JAK2 V617F mutation (23) UTI (urinary tract infection) (24) Polycythemia vera (25) Pacemaker (26) Acute encephalopathy (27) Chronic anticoagulation (28) RLL pneumonia (29) Hematothorax (30) Thoracostomy tube in place (31) Collapse of left lung (32) Paroxysmal A-fib (33) Anemia Errol Estrada Apr 17, 2020 10:59
--- NOTE | 2020-04-17 11:07 | NUR ---
NURSE NOTES: Left a message for Dr. Kaplan regarding patient's H/H, awaiting callback. Addendum: 04/17/20 at 1115 by Orlando Vazquez RN RN Orders received read back and carried out.
[2020-04-17 12:00] VITALS: BP 107/57
--- NOTE | 2020-04-17 12:28 | NUR ---
PT Note PT yolanda completed, treatment initiated. Patient c/o fatigue; has muscle weakness; requested to defer OOB activities due to c/o not feeling well. Patient can benefit from PT services to increase her muscle strength and balance to improve her functional mobility and gait to enable her to return to [facility] [address]. Addendum: 04/17/20 at 1229 by EM BEY PT Amended: Links added.
--- NOTE | 2020-04-17 14:20 | NUR ---
NURSE NOTES: 1 unit PRBC started per order
--- NOTE | 2020-04-17 14:57 | Internal Med Progress Note ---
Subjective Date of Service: Apr 17, 2020 Physician Name Roshan Edwards Attending Physician Antonio Adrian MD Current Medications Medications (Trade) Dose Ordered Sig/Escobar Route PRN Reason Start Time Stop Time Status Last Admin Dose Admin Acetaminophen (Tylenol) 650 mg Q6H PRN ORAL Mild Pain (Pain Scale 1-3) 04/13/20 23:00 05/13/20 22:59 Acetaminophen (Tylenol) 650 mg Q6H PRN ORAL Temp >100.5 04/13/20 23:00 05/13/20 22:59 Amiodarone HCl (Cordarone) 200 mg DAILY ORAL 04/14/20 09:00 07/13/20 08:59 04/17/20 08:53 Bisacodyl (Dulcolax) 5 mg DAILY PRN ORAL Constipation 04/13/20 23:15 07/12/20 23:14 Digoxin (Lanoxin) 0.125 mg DAILY ORAL 04/14/20 09:00 07/13/20 08:59 04/17/20 08:53 Docusate Sodium (Colace) 100 mg TWICE A DAY ORAL 04/14/20 09:00 05/14/20 08:59 04/17/20 08:53 Heparin Sodium (Porcine) (Heparin 5000 units/ml) 5,000 units EVERY 12 HOURS SUBQ 04/14/20 09:00 05/29/20 08:59 04/17/20 08:55 Levothyroxine Sodium (Synthroid) 25 mcg DAILY@0630 ORAL 04/14/20 06:30 05/14/20 06:29 04/17/20 06:35 Metoprolol Tartrate (Lopressor) 12.5 mg Q12HR ORAL 04/16/20 09:00 07/15/20 08:59 04/16/20 20:41 Multivitamins (Multivitamins) 1 tab DAILY ORAL 04/14/20 09:00 05/14/20 08:59 04/17/20 08:52 Ondansetron HCl (Zofran) 4 mg Q6H PRN IVP Nausea & Vomiting 04/13/20 23:00 05/13/20 22:59 Pantoprazole (Protonix) 40 mg DAILY ORAL 04/14/20 09:00 05/14/20 08:59 04/17/20 08:53 Allergies: Coded Allergies: No Known Allergies (Unverified , 04/24/18) ROS Limited/Unobtainable: No Constitutional: Reports: no symptoms HEENT: Reports: no symptoms Cardiovascular: Reports: no symptoms Respiratory: Reports: no symptoms Gastrointestinal/Abdominal: Reports: no symptoms Genitourinary: Reports: no symptoms Neurologic/Psychiatric: Reports: no symptoms Subjective 79 YO F with history of myelodysplastic syndrome admitted with fatigue and generalized weakness. Now severe anemia. Cover for Int Germán-Dr Adrian Objective Last Vital Signs Date Time Temp Pulse Resp B/P (MAP) Pulse Ox O2 Delivery O2 Flow Rate FiO2 04/17/20 12:00 98.1 54 17 107/57 (74) 97 04/17/20 09:00 Room Air Laboratory Tests Test 04/17/20 09:45 White Blood Count 3.6 K/UL (4.8-10.8) L Red Blood Count 2.61 M/UL (4.20-5.40) L Hemoglobin 7.6 G/DL (12.0-16.0) L Hematocrit 22.7 % (37.0-47.0) L Mean Corpuscular Volume 87 FL (80-99) Mean Corpuscular Hemoglobin 29.1 PG (27.0-31.0) Mean Corpuscular Hemoglobin Concent 33.4 G/DL (32.0-36.0) Red Cell Distribution Width 15.1 % (11.6-14.8) H Platelet Count 233 K/UL (150-450) Mean Platelet Volume 12.2 FL (6.5-10.1) H Neutrophils (%) (Auto) % (45.0-75.0) Lymphocytes (%) (Auto) % (20.0-45.0) Monocytes (%) (Auto) % (1.0-10.0) Eosinophils (%) (Auto) % (0.0-3.0) Basophils (%) (Auto) % (0.0-2.0) Differential Total Cells Counted 100 Neutrophils % (Manual) 70 % (45-75) Lymphocytes % (Manual) 22 % (20-45) Monocytes % (Manual) 5 % (1-10) Eosinophils % (Manual) 0 % (0-3) Basophils % (Manual) 2 % (0-2) Band Neutrophils 1 % (0-8) Reactive Lymphocytes Occasional Platelet Estimate Adequate Platelet Morphology Giant Platelets 1+ Polychromasia 1+ Anisocytosis 2+ Ovalocytes Occasional Sodium Level 139 MMOL/L (136-145) Potassium Level 4.2 MMOL/L (3.5-5.1) Chloride Level 107 MMOL/L (98-107) Carbon Dioxide Level 26 MMOL/L (21-32) Anion Gap 7 mmol/L (5-15) Blood Urea Nitrogen 29 mg/dL (7-18) H Creatinine 0.8 MG/DL (0.55-1.30) Estimat Glomerular Filtration Rate > 60 mL/min (>60) Glucose Level 125 MG/DL (74-106) H Calcium Level 8.6 MG/DL (8.5-10.1) Total Bilirubin 0.5 MG/DL (0.2-1.0) Aspartate Amino Transf (AST/SGOT) 14 U/L (15-37) L Alanine Aminotransferase (ALT/SGPT) 13 U/L (12-78) Alkaline Phosphatase 86 U/L (46-116) Total Protein 6.0 G/DL (6.4-8.2) L Albumin 2.5 G/DL (3.4-5.0) L Globulin 3.5 g/dL Albumin/Globulin Ratio 0.7 (1.0-2.7) L Intake and Output 0 04/16/20 04/17/20 19:00 07:00 Intake Total 480 ml 360 ml Balance 480 ml 360 ml Intake Oral 480 ml 360 ml # Voids 5 10 # Bowel Movements 1 Objective Objective GENERAL: Awake and responsive, in no acute distress. chronic ill-appearing. HEAD AND NECK: Pupils are equal and reactive to light. Extraocular movements are intact. Neck was supple. No JVD. LUNGS: Good air entry. No wheezing or rales. HEART: S1, S2. Irregular. No murmur or gallops. Pacemaker in left-sided chest wall was noted. ABDOMEN: Soft, nondistended, nontender. Positive bowel sounds. EXTREMITIES: No cyanosis, clubbing, or edema. NEUROLOGIC: Cranial nerves II through XII grossly intact. Motor is 5/5 in upper extremities and 4/5 in bilateral Lower extremities. PSYCHIATRIC: Mood and affect is intact. RECTAL/GENITOURINARY: Refused and deferred. Assessment/Plan Assessment/Plan Assessment/Plan Assessment/Plan 1. Severe anemia, most likely secondary to myelofibrosis. 2. Chronic atrial fibrillation. 3. History of polycythemia vera. 4. History of JAK2 mutation. 5. Myelofibrosis with myelodysplastic syndrome. 6. Hypertension. 7. Coronary artery disease. 8. Dyslipidemia. 9. Congestive heart failure. 10. History of right hemothorax, status post video-assisted thoracotomy with exploration on July 02, 2019. 11. Sick sinus syndrome, status post pacemaker. 12. Failure to thrive. 13. Severe protein-calorie malnutrition. PLAN: In medical Unit. Dr. Freitas from Cardiology electrophysiology Dr. Kaplan = Hematology-Oncology. S/P Transfusion 2 units PRBC Follow up with the laboratory Code status: Full Code. DVT prophylaxis: Heparin subcutaneous. PT Mobility Roshan Edwards MD Apr 17, 2020 14:56
[2020-04-17 16:00] VITALS: BP 104/54
--- NOTE | 2020-04-17 17:11 | NUR ---
NURSE NOTES: 1 unit PRBC completed, no adverse reactions noted.
--- NOTE | 2020-04-17 18:50 | NUR ---
NURSE HAND-OFF: Important Events on Shift:[1 unit PRBC] Patient Status: stable Diet: regular Pending Orders: Pending Results/Labs: Pending MD notification: Latest Vital Signs: Temperature 97.7 , Pulse 74 , B/P 104 /54 , Respiratory Rate 18 , O2 SAT 97 , Room Air, O2 Flow Rate . Vital Sign Comment: stable Latest Yepez Fall Score: 25 Fall Risk: Medium Risk Safety Measures: Call light Within Reach, Bed Alarm Zone 2, Side Rails Side Rails x3, Bed position Low and Locked. Fall Precautions: Yellow Socks Yellow Gown Door Sign Patient Fall Education Report given to Tammi VARMA.
[2020-04-17 20:00] VITALS: BP 112/58
--- NOTE | 2020-04-17 20:00 | NUR ---
NURSE NOTES: RECEIVED PATIENT LYING IN BED, AWAKE, ALERT/ORIENTED X3 WITH PERIODS OF FORGETFULNESS/CONFUSION, VERBALLY RESPONSIVE, DENIES PAIN. NO IV ACCESS, MD AWARE. NO SIGNS AND SYMPTOMS OF ACUTE CARDIO RESPIRATORY DISTRESS/SHORTNESS OF BREATH, DENIES CHEST PAIN. ABDOMEN SOFT/NON DISTENDED/NON TENDER/AUDIBLE BOWEL SOUNDS, DENIES DIARRHEA. SIDE RAILS UP X3 FOR SAFETY, BED IN LOWEST POSITION, ENCOURAGED PATIENT TO UTILIZE CALL LIGHT FOR ASSISTANCE, VERBALIZED UNDERSTANDING. CONTINUE WITH CURRENT PLAN OF CARE. NAD.
[2020-04-18] MEDS: Levothyroxine 25mcg tab ORAL SCH (05:55)
--- NOTE | 2020-04-18 06:16 | Hematology/Onc Progress Note ---
Assessment/Plan Assessment/Plan ASSESSMENT AND RECOMMENDATIONS # Polycythemia vera, JAK2+++. In prior was on hydroxyurea --> was int he past jak2+++ -> consider outpatient hydrea when h/h better --> imaging abd us ordered - Splenomegaly. 3 cm cyst within the spleen probably complex with at least one or 2 septations. Trace right pleural effusion. G allbladder sludge versus stones. --> hold off hydrea at this time # Pancytopenia now with initially with anemia of chronic disease due to underlying chronic medical issues, multifactorial, also due to polycythemia vera, hgb 5 on admission --> Anemia workup has been ordered, rule out gi bleed - results noted and cw acd --> No evidence of hemolysis is noted, peripheral smear has been reviewed. --> Hgb goal >7. Transfuse prn --> low threshold for gi evaluation in case has occult --> Hgb trend:4.8-->5.9-->7.7-->7.6 --> wbc 3.8-->4->3.6 --> Patient received an EGD prior admission, by GI at that time that showed taylor ritis. No varices # Vertigo. --> per neuro as needed # Atrial fibrillation with rapid ventricular rate. --> Serial troponin levels will be performeD prior and neg --> per cards # Hypertension. Cont on clonidine # Obstructive sleep apnea. # Coronary artery disease. # Hypercholesteremia. # Congestive heart failure. # Dvt ppx heparin sq The time the the note is entered does not reflect the time the patient was examined. I greatly appreciate the consultation. Subjective HEENT: Denies: no symptoms, eye pain, blurred vision, tearing, double vision, ear pain, ear discharge, nose pain, nose congestion, throat pain, throat swelling, mouth pain, mouth swelling, other Cardiovascular: Denies: no symptoms, chest pain, edema, irregular heart rate, lightheadedness, palpitations, syncope, other Respiratory: Denies: no symptoms, cough, shortness of breath, SOB with excertion, SOB at rest, sputum, wheezing, other Gastrointestinal/Abdominal: Denies: no symptoms, abdomen distended, abdominal pain, black stools, tarry stools, blood in stool, constipated, diarrhea, difficulty swallowing, nausea, poor appetite, poor fluid intake, rectal bleeding, vomiting, other Genitourinary: Denies: no symptoms, burning, discharge, frequency, flank pain, hematuria, incontinence, pain, urgency, other Neurologic/Psychiatric: Denies: no symptoms, anxiety, depressed, emotional problems, headache, numbness, paresthesia, pre-existing deficit, seizure, tingling, tremors, weakness, other Endocrine: Denies: no symptoms, excessive sweating, flushing, intolerance to cold, intolerance to heat, increased hunger, increased thirst, increased urine, unexplained weight gain, unexplained weight loss, other Hematologic/Lymphatic: Denies: no symptoms, anemia, easy bleeding, easy bruising, adenopathy, other Allergies: Coded Allergies: No Known Allergies (Unverified , 04/24/18) Subjective 04/15 labs are pending, meds noted, no bleeding,destiny rn, no major events 04/16: no acute evetns no distress, VSS 04/17: tolerated breakfast no distress. 04/18 overall is feeling better, destiny rn, no major events noted, no bleeding Objective Objective Current Medications Medications (Trade) Dose Ordered Sig/Escobar Route PRN Reason Start Time Stop Time Status Last Admin Dose Admin Acetaminophen (Tylenol) 650 mg Q6H PRN ORAL Mild Pain (Pain Scale 1-3) 04/13/20 23:00 05/13/20 22:59 Acetaminophen (Tylenol) 650 mg Q6H PRN ORAL Temp >100.5 04/13/20 23:00 05/13/20 22:59 Amiodarone HCl (Cordarone) 200 mg DAILY ORAL 04/14/20 09:00 07/13/20 08:59 04/17/20 08:53 Bisacodyl (Dulcolax) 5 mg DAILY PRN ORAL Constipation 04/13/20 23:15 07/12/20 23:14 Digoxin (Lanoxin) 0.125 mg DAILY ORAL 04/14/20 09:00 07/13/20 08:59 04/17/20 08:53 Docusate Sodium (Colace) 100 mg TWICE A DAY ORAL 04/14/20 09:00 05/14/20 08:59 04/17/20 17:07 Heparin Sodium (Porcine) (Heparin 5000 units/ml) 5,000 units EVERY 12 HOURS SUBQ 04/14/20 09:00 05/29/20 08:59 04/17/20 21:11 Levothyroxine Sodium (Synthroid) 25 mcg DAILY@0630 ORAL 04/14/20 06:30 05/14/20 06:29 04/18/20 05:55 Metoprolol Tartrate (Lopressor) 12.5 mg Q12HR ORAL 04/16/20 09:00 07/15/20 08:59 04/17/20 21:06 Multivitamins (Multivitamins) 1 tab DAILY ORAL 04/14/20 09:00 05/14/20 08:59 04/17/20 08:52 Ondansetron HCl (Zofran) 4 mg Q6H PRN IVP Nausea & Vomiting 04/13/20 23:00 05/13/20 22:59 Pantoprazole (Protonix) 40 mg DAILY ORAL 04/14/20 09:00 05/14/20 08:59 04/17/20 08:53 Last 24 Hour Vital Signs Date Time Temp Pulse Resp B/P (MAP) Pulse Ox O2 Delivery O2 Flow Rate FiO2 04/17/20 21:06 75 115/63 04/17/20 21:00 Room Air 04/17/20 20:00 97.9 72 18 112/58 (76) 96 04/17/20 16:00 97.7 74 18 104/54 (71) 97 04/17/20 16:00 97.7 74 18 104/54 (71) 97 04/17/20 12:00 98.1 54 17 107/57 (74) 97 04/17/20 09:00 Room Air 04/17/20 08:53 70 04/17/20 08:43 70 97/47 04/17/20 08:00 98.1 70 19 97/47 (64) 97 04/17/20 04:00 97.7 69 18 114/64 (81) 99 04/17/20 00:00 98.4 72 18 111/61 (78) 96 04/16/20 21:00 Room Air 04/16/20 20:57 Room Air 04/16/20 20:41 68 110/62 04/16/20 20:00 97.3 68 18 110/62 (78) 99 04/16/20 16:00 96.6 67 18 108/61 (77) 100 04/16/20 11:56 98.4 65 18 116/62 (80) 96 04/16/20 09:13 64 129/62 04/16/20 09:12 64 04/16/20 09:00 Room Air 04/16/20 08:00 97.4 64 18 129/62 (84) 97 Intake and Output 04/17/20 04/18/20 19:00 07:00 Intake Total 1200 ml 360 ml Balance 1200 ml 360 ml Intake Oral 1200 ml 360 ml # Voids 5 6 # Bowel Movements 1 Labs Test 04/17/20 09:45 White Blood Count 3.6 K/UL (4.8-10.8) Red Blood Count 2.61 M/UL (4.20-5.40) Hemoglobin 7.6 G/DL (12.0-16.0) Hematocrit 22.7 % (37.0-47.0) Mean Corpuscular Volume 87 FL (80-99) Mean Corpuscular Hemoglobin 29.1 PG (27.0-31.0) Mean Corpuscular Hemoglobin Concent 33.4 G/DL (32.0-36.0) Red Cell Distribution Width 15.1 % (11.6-14.8) Platelet Count 233 K/UL (150-450) Mean Platelet Volume 12.2 FL (6.5-10.1) Neutrophils (%) (Auto) % (45.0-75.0) Lymphocytes (%) (Auto) % (20.0-45.0) Monocytes (%) (Auto) % (1.0-10.0) Eosinophils (%) (Auto) % (0.0-3.0) Basophils (%) (Auto) % (0.0-2.0) Differential Total Cells Counted 100 Neutrophils % (Manual) 70 % (45-75) Lymphocytes % (Manual) 22 % (20-45) Monocytes % (Manual) 5 % (1-10) Eosinophils % (Manual) 0 % (0-3) Basophils % (Manual) 2 % (0-2) Band Neutrophils 1 % (0-8) Reactive Lymphocytes Occasional Platelet Estimate Adequate Platelet Morphology Giant Platelets 1+ Polychromasia 1+ Anisocytosis 2+ Ovalocytes Occasional Sodium Level 139 MMOL/L (136-145) Potassium Level 4.2 MMOL/L (3.5-5.1) Chloride Level 107 MMOL/L (98-107) Carbon Dioxide Level 26 MMOL/L (21-32) Anion Gap 7 mmol/L (5-15) Blood Urea Nitrogen 29 mg/dL (7-18) Creatinine 0.8 MG/DL (0.55-1.30) Estimat Glomerular Filtration Rate > 60 mL/min (>60) Glucose Level 125 MG/DL (74-106) Calcium Level 8.6 MG/DL (8.5-10.1) Total Bilirubin 0.5 MG/DL (0.2-1.0) Aspartate Amino Transf (AST/SGOT) 14 U/L (15-37) Alanine Aminotransferase (ALT/SGPT) 13 U/L (12-78) Alkaline Phosphatase 86 U/L (46-116) Total Protein 6.0 G/DL (6.4-8.2) Albumin 2.5 G/DL (3.4-5.0) Globulin 3.5 g/dL Albumin/Globulin Ratio 0.7 (1.0-2.7) Height (Feet): 5 Height (Inches): 0.25 Weight (Pounds): 100 Objective Physical Exam Vitals: noted General: thin, other - frail, Chronically Ill Eyes: bilateral eye PERRL, bilateral eye EOMI ENT: moist mucus membranes - slightly dry Neck: full range of motion, no bony tend, other Respiratory: chest non-tender- Pacemaker left Cardiovascular: regular rate, rhythm Gastrointestinal: normal bowel sounds Genitourinary: no CVA tenderness Musculoskeletal: back normal, no calf tenderness, + kyphosis Neurologic: alert, 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
--- NOTE | 2020-04-18 06:39 | NUR ---
NURSE HAND-OFF: Important Events on Shift:[RESTED WELL THROUGHOUT THE NIGHT, REFUSED VITALS MIDNIGHT/AM, DR. MASCORRO STATED "THAT IF PATIENT REFUSE, LEAVE HER ALONE"] Patient Status: [FULL CODE, STABLE] Diet: [REGULAR, POOR INTAKE, ASSIST WITH MEALS] Pending Orders: [AM LABS] Pending Results/Labs:[] Pending MD notification:[] Latest Vital Signs: Temperature 97.9 , Pulse 75 , B/P 115 /63 , Respiratory Rate 18 , O2 SAT 96 , Room Air, O2 Flow Rate . Vital Sign Comment: [STABLE, AFEBRILE] Latest Yepez Fall Score: 25 Fall Risk: Medium Risk Safety Measures: Call light Within Reach, Bed Alarm Zone 2, Side Rails Side Rails x3, Bed position Low and Locked. Fall Precautions: Yellow Socks Yellow Gown Door Sign Patient Fall Education Report given to [IRA ESTRELLA].
[2020-04-18 07:06] LABS: BASOPHILS % (AUTO) 5.2 % (0.0-2.0); EOSINOPHILS % (AUTO) 0.2 % (0.0-3.0); HEMATOCRIT 27.7 % (37.0-47.0); HEMOGLOBIN 9.1 G/DL (12.0-16.0); LYMPHOCYTES % (AUTO) 21.3 % (20.0-45.0); MEAN CORPUSCULAR VOLUME 88 FL (80-99); MONOCYTES % (AUTO) 8.2 % (1.0-10.0); PLATELET COUNT 227 K/UL (150-450); RED BLOOD COUNT 3.13 M/UL (4.20-5.40); RED CELL DISTRIBUTION WIDTH 15.7 % (11.6-14.8); WHITE BLOOD COUNT 3.5 K/UL (4.8-10.8)
--- NOTE | 2020-04-18 07:10 | NUR ---
NURSE NOTES: Received hand-off report from Tammi Santos LVN. Patient in stable condition, no bleeding noted,alert and oriented x3, able to make needs known, breathing even and unlabored, resp 14/min. Bed in lowest and locked position, bed alarm on, call light within reach, side rails upx2.
[2020-04-18 07:12] LABS: ALANINE AMINOTRANSFERASE 17 U/L (12-78); ALBUMIN 2.6 G/DL (3.4-5.0); ALBUMIN/GLOBULIN RATIO 0.7 (1.0-2.7); ALKALINE PHOSPHATASE 93 U/L (46-116); ANION GAP 6 mmol/L (5-15); ASPARTATE AMINO TRANSFERASE 14 U/L (15-37); BILIRUBIN,TOTAL 0.5 MG/DL (0.2-1.0); BLOOD UREA NITROGEN 31 mg/dL (7-18); CALCIUM 8.7 MG/DL (8.5-10.1); CARBON DIOXIDE 27 MMOL/L (21-32); CHLORIDE 106 MMOL/L (98-107); CREATININE 0.8 MG/DL (0.55-1.30); POTASSIUM 4.9 MMOL/L (3.5-5.1); SODIUM 139 MMOL/L (136-145)
[2020-04-18 08:00] VITALS: BP 118/60
[2020-04-18] MEDS: Digoxin 0.125mg tab ORAL SCH (08:50)
[2020-04-18] MEDS: Docusate 100mg cap ORAL SCH ×2 (08:50→18:38)
--- NOTE | 2020-04-18 08:50 | NUR ---
RD ASSESSMENT & RECOMMENDATIONS SEE CARE ACTIVITY FOR COMPLETE ASSESSMENT DAILY ESTIMATED NEEDS: Needs based on underweight, wt loss, cardiac/ 47.6kg 30-35 kcals/kg 3946-3405 total kcals 1-1.5 g protein/kg 48-71 g total protein 20-25 mL/kg 952-1190 total fluid mLs NUTRITION DIAGNOSIS: Increased kcal/prot needs R/T underweight status, suspected recent significant wt loss as evidenced by pt @ 84% w/ low BMI per guidelines, suspected significant wt loss of 6lbs/ 5.5% in 1 month. CURRENT DIET:REGULAR PO DIET RECOMMENDATIONS: Maintain liberalized regular diet/ texture as tolerated ADDITIONAL RECOMMENDATIONS: 1) Standing wt or calibrated bedscale wt for accurate CBW 2) Ensure Enlive TID Snacks to trays TID as tolerated 3) Monitor Po intake closely, consider appetite stimulant w/ consistently poor PO 4) Monitor lytes, replete as needed BUN up, rec IV hydration.
[2020-04-18] MEDS: Amiodarone 200mg tab ORAL SCH (08:51)
[2020-04-18] MEDS: Heparin 5000 units/ml inj SUBQ SCH ×2 (08:53→21:00)
--- NOTE | 2020-04-18 09:04 | NUR ---
NURSE NOTES: Patient shows no s/s bleeding, denies bleeding.
--- NOTE | 2020-04-18 11:23 | Surgery Progress Note ---
Surgery Progress Note Subjective Symptoms: improved, tolerating diet, passing flatus Objective Last 24 Hour Vital Signs Date Time Temp Pulse Resp B/P (MAP) Pulse Ox O2 Delivery O2 Flow Rate FiO2 04/18/20 08:51 68 118/60 04/18/20 08:50 68 04/18/20 08:00 98.8 68 20 118/60 (79) 95 04/17/20 21:06 75 115/63 04/17/20 21:00 Room Air 04/17/20 20:00 97.9 72 18 112/58 (76) 96 04/17/20 16:00 97.7 74 18 104/54 (71) 97 04/17/20 16:00 97.7 74 18 104/54 (71) 97 04/17/20 12:00 98.1 54 17 107/57 (74) 97 I&O Intake and Output 04/17/20 04/18/20 19:00 07:00 Intake Total 1200 ml 360 ml Balance 1200 ml 360 ml Intake Oral 1200 ml 360 ml # Voids 5 6 # Bowel Movements 1 Cardiovascular: RSR Respiratory: clear Abdomen: soft, non-tender, present bowel sounds, non-distended Extremities: no edema, no tenderness, no cyanosis Laboratory Tests Test 04/18/20 04:55 White Blood Count 3.5 K/UL (4.8-10.8) L Red Blood Count 3.13 M/UL (4.20-5.40) L Hemoglobin 9.1 G/DL (12.0-16.0) L Hematocrit 27.7 % (37.0-47.0) L Mean Corpuscular Volume 88 FL (80-99) Mean Corpuscular Hemoglobin 29.1 PG (27.0-31.0) Mean Corpuscular Hemoglobin Concent 32.9 G/DL (32.0-36.0) Red Cell Distribution Width 15.7 % (11.6-14.8) H Platelet Count 227 K/UL (150-450) Mean Platelet Volume 11.5 FL (6.5-10.1) H Neutrophils (%) (Auto) 65.0 % (45.0-75.0) Lymphocytes (%) (Auto) 21.3 % (20.0-45.0) Monocytes (%) (Auto) 8.2 % (1.0-10.0) Eosinophils (%) (Auto) 0.2 % (0.0-3.0) Basophils (%) (Auto) 5.2 % (0.0-2.0) H Sodium Level 139 MMOL/L (136-145) Potassium Level 4.9 MMOL/L (3.5-5.1) Chloride Level 106 MMOL/L (98-107) Carbon Dioxide Level 27 MMOL/L (21-32) Anion Gap 6 mmol/L (5-15) Blood Urea Nitrogen 31 mg/dL (7-18) H Creatinine 0.8 MG/DL (0.55-1.30) Estimat Glomerular Filtration Rate > 60 mL/min (>60) Glucose Level 85 MG/DL (74-106) Calcium Level 8.7 MG/DL (8.5-10.1) Total Bilirubin 0.5 MG/DL (0.2-1.0) Aspartate Amino Transf (AST/SGOT) 14 U/L (15-37) L Alanine Aminotransferase (ALT/SGPT) 17 U/L (12-78) Alkaline Phosphatase 93 U/L (46-116) Total Protein 6.2 G/DL (6.4-8.2) L Albumin 2.6 G/DL (3.4-5.0) L Globulin 3.6 g/dL Albumin/Globulin Ratio 0.7 (1.0-2.7) L Plan Problems: (1) COVID-19 ruled out by laboratory testing (2) Profound anemia (3) Neck pain Assessment & Plan: 79-year-old female complaining of posterior neck pain. States cramping has only been ongoing recently feels she may have been sleeping on the wrong side. States she slept well last night and feels little bit better today. No nausea vomiting fever chills. Labs noted severe anemia no leukocytosis. Blood transfusion pending. Okay for warm compress per okay for anti-inflammatory no abscess no mass identified. Physical exam fairly benign. Will follow with recommendations and clinical examination. Okay for diet from surgical standpoint. Thank you will follow with recommendations. prior CT reviewed from last admission FINDINGS: Pulmonary arteries: Unremarkable. No pulmonary embolism. Aorta: No thoracic aortic aneurysm. Lungs: Atelectatic volume loss and consolidation in bilateral lower lobes. Pleural space: Mild to moderate bilateral layering pleural effusions. Heart: Cardiomegaly. No pericardial effusion. No evidence of RV dysfunction. Bones/joints: Multilevel degenerative changes throughout the visualized spine with disc space loss and endplate osteophytes. No acute fracture. No dislocation. Soft tissues: Unremarkable. Lymph nodes: Unremarkable. No enlarged lymph nodes. Tubes, lines and devices: Cardiac pacer in the left chest wall with the lead tips in the right atrium and right ventricle. Upper abdomen: Incidental note of a 3.5 cm hypodensity in the superior aspect of spine, possibly a cyst or hemangioma. IMPRESSION: 1. Mild to moderate bilateral layering pleural effusions. 2. Atelectatic volume loss and consolidation in bilateral lower lobes. 3. No evidence of pulmonary embolism. 4. Cardiomegaly. 5. Incidental note of a 3.5 cm hypodensity in the superior aspect of spine, possibly a cyst or hemangioma. 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
[2020-04-18 12:00] VITALS: BP 115/57
--- NOTE | 2020-04-18 13:34 | Cardiac Electrophysiology PN ---
Assessment/Plan Assessment/Plan 1. Hypertension. On Lopressor 12.5 po bid 2. Status post [employer] pacer in 2010 and generator change by me in 2019. 3. Paroxysmal atrial fibrillation with rapid ventricular response. On digoxin, metoprolol and amiodarone. Off anticoagulation for recurrent bleeding and profound anemia. 4. Profound anemia with hemoglobin of 3 to 4. S/P 6 units of PRBC in 01/2020 S/P 4 units of PRBC again in 04/03 Had another unit on 04/14/20 5. History of hemothorax, status post VATS. 6. Pulmonary hypertension. 7. Myelofibrosis. Subjective Subjective Readmitted with weakness and severe anemia. Got another unit of PRBC. No CP Objective Last 24 Hour Vital Signs Date Time Temp Pulse Resp B/P (MAP) Pulse Ox O2 Delivery O2 Flow Rate FiO2 04/18/20 12:00 98.8 67 18 115/57 (76) 96 04/18/20 08:51 68 118/60 04/18/20 08:50 68 04/18/20 08:00 98.8 68 20 118/60 (79) 95 04/17/20 21:06 75 115/63 04/17/20 21:00 Room Air 04/17/20 20:00 97.9 72 18 112/58 (76) 96 04/17/20 16:00 97.7 74 18 104/54 (71) 97 04/17/20 16:00 97.7 74 18 104/54 (71) 97 Intake and Output 04/17/20 04/18/20 19:00 07:00 Intake Total 1200 ml 360 ml Balance 1200 ml 360 ml Intake Oral 1200 ml 360 ml # Voids 5 6 # Bowel Movements 1 Laboratory Tests Test 04/18/20 04:55 White Blood Count 3.5 K/UL (4.8-10.8) L Red Blood Count 3.13 M/UL (4.20-5.40) L Hemoglobin 9.1 G/DL (12.0-16.0) L Hematocrit 27.7 % (37.0-47.0) L Mean Corpuscular Volume 88 FL (80-99) Mean Corpuscular Hemoglobin 29.1 PG (27.0-31.0) Mean Corpuscular Hemoglobin Concent 32.9 G/DL (32.0-36.0) Red Cell Distribution Width 15.7 % (11.6-14.8) H Platelet Count 227 K/UL (150-450) Mean Platelet Volume 11.5 FL (6.5-10.1) H Neutrophils (%) (Auto) 65.0 % (45.0-75.0) Lymphocytes (%) (Auto) 21.3 % (20.0-45.0) Monocytes (%) (Auto) 8.2 % (1.0-10.0) Eosinophils (%) (Auto) 0.2 % (0.0-3.0) Basophils (%) (Auto) 5.2 % (0.0-2.0) H Sodium Level 139 MMOL/L (136-145) Potassium Level 4.9 MMOL/L (3.5-5.1) Chloride Level 106 MMOL/L (98-107) Carbon Dioxide Level 27 MMOL/L (21-32) Anion Gap 6 mmol/L (5-15) Blood Urea Nitrogen 31 mg/dL (7-18) H Creatinine 0.8 MG/DL (0.55-1.30) Estimat Glomerular Filtration Rate > 60 mL/min (>60) Glucose Level 85 MG/DL (74-106) Calcium Level 8.7 MG/DL (8.5-10.1) Total Bilirubin 0.5 MG/DL (0.2-1.0) Aspartate Amino Transf (AST/SGOT) 14 U/L (15-37) L Alanine Aminotransferase (ALT/SGPT) 17 U/L (12-78) Alkaline Phosphatase 93 U/L (46-116) Total Protein 6.2 G/DL (6.4-8.2) L Albumin 2.6 G/DL (3.4-5.0) L Globulin 3.6 g/dL Albumin/Globulin Ratio 0.7 (1.0-2.7) L Microbiology Date/Time Source Procedure Growth Status 04/16/20 22:00 Urine,Clean Catch Urine Culture - Preliminary Gram Negative Pineda Resulted Objective HEAD AND NECK: Showed no JVD. LUNGS: Clear. CARDIOVASCULAR: Regular S1 and S2 with no gallop. Pacemaker in left subclavian. ABDOMEN: Soft. EXTREMITIES: No pitting edema. River Freitas MD Apr 18, 2020 13:34
--- NOTE | 2020-04-18 14:13 | NUR ---
NURSE NOTES: Patient sleeping in bed, respirations even and unlabored.
[2020-04-18 16:00] VITALS: BP 110/60
--- NOTE | 2020-04-18 19:00 | NUR ---
NURSE HAND-OFF: Important Events on Shift: incontinence 4x, cleaned patient frequently, PT assisted pt with exercises today Patient Status: full code, stable condition Diet: regular with extensive assist Pending Orders: [] Pending Results/Labs:[] Pending MD notification:[] Latest Vital Signs: Temperature 98.8 , Pulse 73 , B/P 110 /60 , Respiratory Rate 20 , O2 SAT 98 , Room Air, O2 Flow Rate . Vital Sign Comment: [] Latest Yepez Fall Score: 25 Fall Risk: Medium Risk Safety Measures: Call light Within Reach, Bed Alarm Zone 2, Side Rails Side Rails x3, Bed position Low and Locked. Fall Precautions: Yellow Socks Yellow Gown Door Sign Patient Fall Education Report given to IRA Pena.
--- NOTE | 2020-04-18 19:07 | Internal Med Progress Note ---
Subjective Date of Service: Apr 18, 2020 Physician Name Roshan Edwards Attending Physician Antonio Adrian MD Current Medications Medications (Trade) Dose Ordered Sig/Escobar Route PRN Reason Start Time Stop Time Status Last Admin Dose Admin Acetaminophen (Tylenol) 650 mg Q6H PRN ORAL Mild Pain (Pain Scale 1-3) 04/13/20 23:00 05/13/20 22:59 Acetaminophen (Tylenol) 650 mg Q6H PRN ORAL Temp >100.5 04/13/20 23:00 05/13/20 22:59 Amiodarone HCl (Cordarone) 200 mg DAILY ORAL 04/14/20 09:00 07/13/20 08:59 04/18/20 08:51 Bisacodyl (Dulcolax) 5 mg DAILY PRN ORAL Constipation 04/13/20 23:15 07/12/20 23:14 Digoxin (Lanoxin) 0.125 mg DAILY ORAL 04/14/20 09:00 07/13/20 08:59 04/18/20 08:50 Docusate Sodium (Colace) 100 mg TWICE A DAY ORAL 04/14/20 09:00 05/14/20 08:59 04/18/20 18:38 Heparin Sodium (Porcine) (Heparin 5000 units/ml) 5,000 units EVERY 12 HOURS SUBQ 04/14/20 09:00 05/29/20 08:59 04/18/20 08:53 Levothyroxine Sodium (Synthroid) 25 mcg DAILY@0630 ORAL 04/14/20 06:30 05/14/20 06:29 04/18/20 05:55 Metoprolol Tartrate (Lopressor) 12.5 mg Q12HR ORAL 04/16/20 09:00 07/15/20 08:59 04/18/20 08:51 Multivitamins (Multivitamins) 1 tab DAILY ORAL 04/14/20 09:00 05/14/20 08:59 04/18/20 08:51 Ondansetron HCl (Zofran) 4 mg Q6H PRN IVP Nausea & Vomiting 04/13/20 23:00 05/13/20 22:59 Pantoprazole (Protonix) 40 mg DAILY ORAL 04/14/20 09:00 05/14/20 08:59 04/18/20 08:51 Allergies: Coded Allergies: No Known Allergies (Unverified , 04/24/18) ROS Limited/Unobtainable: Yes Subjective 79 YO F with history of myelodysplastic syndrome admitted with fatigue and generalized weakness. Now severe anemia. Cover for Int Germán-Dr Adrian Objective Last Vital Signs Date Time Temp Pulse Resp B/P (MAP) Pulse Ox O2 Delivery O2 Flow Rate FiO2 04/18/20 16:00 98.8 73 20 110/60 (77) 98 04/18/20 09:00 Room Air Laboratory Tests Test 04/18/20 04:55 White Blood Count 3.5 K/UL (4.8-10.8) L Red Blood Count 3.13 M/UL (4.20-5.40) L Hemoglobin 9.1 G/DL (12.0-16.0) L Hematocrit 27.7 % (37.0-47.0) L Mean Corpuscular Volume 88 FL (80-99) Mean Corpuscular Hemoglobin 29.1 PG (27.0-31.0) Mean Corpuscular Hemoglobin Concent 32.9 G/DL (32.0-36.0) Red Cell Distribution Width 15.7 % (11.6-14.8) H Platelet Count 227 K/UL (150-450) Mean Platelet Volume 11.5 FL (6.5-10.1) H Neutrophils (%) (Auto) 65.0 % (45.0-75.0) Lymphocytes (%) (Auto) 21.3 % (20.0-45.0) Monocytes (%) (Auto) 8.2 % (1.0-10.0) Eosinophils (%) (Auto) 0.2 % (0.0-3.0) Basophils (%) (Auto) 5.2 % (0.0-2.0) H Sodium Level 139 MMOL/L (136-145) Potassium Level 4.9 MMOL/L (3.5-5.1) Chloride Level 106 MMOL/L (98-107) Carbon Dioxide Level 27 MMOL/L (21-32) Anion Gap 6 mmol/L (5-15) Blood Urea Nitrogen 31 mg/dL (7-18) H Creatinine 0.8 MG/DL (0.55-1.30) Estimat Glomerular Filtration Rate > 60 mL/min (>60) Glucose Level 85 MG/DL (74-106) Calcium Level 8.7 MG/DL (8.5-10.1) Total Bilirubin 0.5 MG/DL (0.2-1.0) Aspartate Amino Transf (AST/SGOT) 14 U/L (15-37) L Alanine Aminotransferase (ALT/SGPT) 17 U/L (12-78) Alkaline Phosphatase 93 U/L (46-116) Total Protein 6.2 G/DL (6.4-8.2) L Albumin 2.6 G/DL (3.4-5.0) L Globulin 3.6 g/dL Albumin/Globulin Ratio 0.7 (1.0-2.7) L Microbiology Date/Time Source Procedure Growth Status 04/16/20 22:00 Urine,Clean Catch Urine Culture - Preliminary Gram Negative Pineda Resulted Intake and Output 04/17/20 04/18/20 19:00 07:00 Intake Total 1200 ml 360 ml Balance 1200 ml 360 ml Intake Oral 1200 ml 360 ml # Voids 5 6 # Bowel Movements 1 Objective Objective GENERAL: Awake and responsive, in no acute distress. chronic ill-appearing. HEAD AND NECK: Pupils are equal and reactive to light. Extraocular movements are intact. Neck was supple. No JVD. LUNGS: Good air entry. No wheezing or rales. HEART: S1, S2. Irregular. No murmur or gallops. Pacemaker in left-sided chest wall was noted. ABDOMEN: Soft, nondistended, nontender. Positive bowel sounds. EXTREMITIES: No cyanosis, clubbing, or edema. NEUROLOGIC: Cranial nerves II through XII grossly intact. Motor is 5/5 in upper extremities and 4/5 in bilateral Lower extremities. PSYCHIATRIC: Mood and affect is intact. RECTAL/GENITOURINARY: Refused and deferred. Assessment/Plan Assessment/Plan Assessment/Plan Assessment/Plan 1. Severe anemia, most likely secondary to myelofibrosis. 2. Chronic atrial fibrillation. 3. History of polycythemia vera. 4. History of JAK2 mutation. 5. Myelofibrosis with myelodysplastic syndrome. 6. Hypertension. 7. Coronary artery disease. 8. Dyslipidemia. 9. Congestive heart failure. 10. History of right hemothorax, status post video-assisted thoracotomy with exploration on July 02, 2019. 11. Sick sinus syndrome, status post pacemaker. 12. Failure to thrive. 13. Severe protein-calorie malnutrition. PLAN: In medical Unit. Dr. Freitas from Cardiology electrophysiology Dr. Kaplan = Hematology-Oncology. S/P Transfusion 4 units PRBC Follow up with the laboratory Code status: Full Code. DVT prophylaxis: Heparin subcutaneous. PT Mobility Roshan Edwards MD Apr 18, 2020 19:07
--- NOTE | 2020-04-18 19:30 | NUR ---
Report received. Pt awake alert able to make needs known. no acute respiratory distress noted. IV to LFA patent intact. Pt use bed pain to void. no c/o of pain. call light in reach bed in lowest position, will continue to monitor for treatment and care
[2020-04-18 20:00] VITALS: BP 112/57
[2020-04-19 00:20] VITALS: BP 100/62
[2020-04-19 04:00] VITALS: BP 111/65
[2020-04-19 05:34] LABS: BASOPHILS % (AUTO) 7.2 % (0.0-2.0); EOSINOPHILS % (AUTO) 0.3 % (0.0-3.0); HEMATOCRIT 27.2 % (37.0-47.0); LYMPHOCYTES % (AUTO) 27.8 % (20.0-45.0); MEAN CORPUSCULAR VOLUME 88 FL (80-99); MONOCYTES % (AUTO) 7.2 % (1.0-10.0); NEUTROPHILS % (AUTO) 57.4 % (45.0-75.0); PLATELET COUNT 229 K/UL (150-450); RED BLOOD COUNT 3.09 M/UL (4.20-5.40); RED CELL DISTRIBUTION WIDTH 15.6 % (11.6-14.8)
[2020-04-19] MEDS: Levothyroxine 25mcg tab ORAL SCH (06:05)
--- NOTE | 2020-04-19 06:17 | Hematology/Onc Progress Note ---
Assessment/Plan Assessment/Plan ASSESSMENT AND RECOMMENDATIONS # Polycythemia vera, JAK2+++. In prior was on hydroxyurea --> was int he past jak2+++ -> consider outpatient hydrea when h/h better --> imaging abd us ordered - Splenomegaly. 3 cm cyst within the spleen probably complex with at least one or 2 septations. Trace right pleural effusion. G allbladder sludge versus stones. --> hold off hydrea at this time # Pancytopenia now with initially with anemia of chronic disease due to underlying chronic medical issues, multifactorial, also due to polycythemia vera, hgb 5 on admission --> Anemia workup has been ordered, rule out gi bleed - results noted and cw acd --> No evidence of hemolysis is noted, peripheral smear has been reviewed. --> Hgb goal >7. Transfuse prn --> low threshold for gi evaluation in case has occult --> Hgb trend:4.8-->5.9-->7.7-->7.6->9 --> wbc 3.8-->4->3.6-->4 --> Patient received an EGD prior admission, by GI at that time that showed gastritis. No varices # Vertigo. --> per neuro as needed # Atrial fibrillation with rapid ventricular rate. --> Serial troponin levels will be performeD prior and neg --> per cards # Hypertension. Cont on clonidine # Obstructive sleep apnea. # Coronary artery disease. # Hypercholesteremia. # Congestive heart failure. # Dvt ppx heparin sq The time the the note is entered does not reflect the time the patient was examined. I greatly appreciate the consultation. Subjective Cardiovascular: Denies: no symptoms, chest pain, edema, irregular heart rate, lightheadedness, palpitations, syncope, other Respiratory: Denies: no symptoms, cough, shortness of breath, SOB with excertion, SOB at rest, sputum, wheezing, other Gastrointestinal/Abdominal: Denies: no symptoms, abdomen distended, abdominal pain, black stools, tarry stools, blood in stool, constipated, diarrhea, difficulty swallowing, nausea, poor appetite, poor fluid intake, rectal bleeding, vomiting, other Genitourinary: Denies: no symptoms, burning, discharge, frequency, flank pain, hematuria, incontinence, pain, urgency, other Neurologic/Psychiatric: Denies: no symptoms, anxiety, depressed, emotional problems, headache, numbness, paresthesia, pre-existing deficit, seizure, tingling, tremors, weakness, other Endocrine: Denies: no symptoms, excessive sweating, flushing, intolerance to cold, intolerance to heat, increased hunger, increased thirst, increased urine, unexplained weight gain, unexplained weight loss, other Allergies: Coded Allergies: No Known Allergies (Unverified , 04/24/18) Subjective 04/15 labs are pending, meds noted, no bleeding,destiny rn, no major events 04/16: no acute evetns no distress, VSS 04/17: tolerated breakfast no distress. 04/18 overall is feeling better, destiny rn, no major events noted, no bleeding 04/19 awake, alert, no pain, labs are noted, no bleeding Objective Objective Current Medications Medications (Trade) Dose Ordered Sig/Escobar Route PRN Reason Start Time Stop Time Status Last Admin Dose Admin Acetaminophen (Tylenol) 650 mg Q6H PRN ORAL Mild Pain (Pain Scale 1-3) 04/13/20 23:00 05/13/20 22:59 Acetaminophen (Tylenol) 650 mg Q6H PRN ORAL Temp >100.5 04/13/20 23:00 05/13/20 22:59 Amiodarone HCl (Cordarone) 200 mg DAILY ORAL 04/14/20 09:00 07/13/20 08:59 04/18/20 08:51 Bisacodyl (Dulcolax) 5 mg DAILY PRN ORAL Constipation 04/13/20 23:15 07/12/20 23:14 Digoxin (Lanoxin) 0.125 mg DAILY ORAL 04/14/20 09:00 07/13/20 08:59 04/18/20 08:50 Docusate Sodium (Colace) 100 mg TWICE A DAY ORAL 04/14/20 09:00 05/14/20 08:59 04/18/20 18:38 Heparin Sodium (Porcine) (Heparin 5000 units/ml) 5,000 units EVERY 12 HOURS SUBQ 04/14/20 09:00 05/29/20 08:59 04/18/20 08:53 Levothyroxine Sodium (Synthroid) 25 mcg DAILY@0630 ORAL 04/14/20 06:30 05/14/20 06:29 04/19/20 06:05 Metoprolol Tartrate (Lopressor) 12.5 mg Q12HR ORAL 04/16/20 09:00 07/15/20 08:59 04/18/20 21:31 Multivitamins (Multivitamins) 1 tab DAILY ORAL 04/14/20 09:00 05/14/20 08:59 04/18/20 08:51 Ondansetron HCl (Zofran) 4 mg Q6H PRN IVP Nausea & Vomiting 04/13/20 23:00 05/13/20 22:59 Pantoprazole (Protonix) 40 mg DAILY ORAL 04/14/20 09:00 05/14/20 08:59 04/18/20 08:51 Last 24 Hour Vital Signs Date Time Temp Pulse Resp B/P (MAP) Pulse Ox O2 Delivery O2 Flow Rate FiO2 04/19/20 04:00 97.8 63 18 111/65 (80) 96 04/19/20 00:20 98.1 64 18 100/62 (75) 95 04/18/20 21:31 73 112/57 04/18/20 21:00 Room Air 04/18/20 20:00 98.5 73 20 112/57 (75) 95 04/18/20 16:00 98.8 73 20 110/60 (77) 98 04/18/20 12:00 98.8 67 18 115/57 (76) 96 04/18/20 09:00 Room Air 04/18/20 08:51 68 118/60 04/18/20 08:50 68 04/18/20 08:00 98.8 68 20 118/60 (79) 95 04/17/20 21:06 75 115/63 04/17/20 21:00 Room Air 04/17/20 20:00 97.9 72 18 112/58 (76) 96 04/17/20 16:00 97.7 74 18 104/54 (71) 97 04/17/20 16:00 97.7 74 18 104/54 (71) 97 04/17/20 12:00 98.1 54 17 107/57 (74) 97 04/17/20 09:00 Room Air 04/17/20 08:53 70 04/17/20 08:43 70 97/47 04/17/20 08:00 98.1 70 19 97/47 (64) 97 Intake and Output 04/18/20 04/19/20 19:00 07:00 Intake Total 720 ml Balance 720 ml Intake Oral 720 ml # Voids 3 5 Labs Test 04/17/20 09:45 04/18/20 04:55 04/19/20 05:10 White Blood Count 3.6 K/UL (4.8-10.8) 3.5 K/UL (4.8-10.8) 4.0 K/UL (4.8-10.8) Red Blood Count 2.61 M/UL (4.20-5.40) 3.13 M/UL (4.20-5.40) 3.09 M/UL (4.20-5.40) Hemoglobin 7.6 G/DL (12.0-16.0) 9.1 G/DL (12.0-16.0) 9.0 G/DL (12.0-16.0) Hematocrit 22.7 % (37.0-47.0) 27.7 % (37.0-47.0) 27.2 % (37.0-47.0) Mean Corpuscular Volume 87 FL (80-99) 88 FL (80-99) 88 FL (80-99) Mean Corpuscular Hemoglobin 29.1 PG (27.0-31.0) 29.1 PG (27.0-31.0) 29.0 PG (27.0-31.0) Mean Corpuscular Hemoglobin Concent 33.4 G/DL (32.0-36.0) 32.9 G/DL (32.0-36.0) 32.9 G/DL (32.0-36.0) Red Cell Distribution Width 15.1 % (11.6-14.8) 15.7 % (11.6-14.8) 15.6 % (11.6-14.8) Platelet Count 233 K/UL (150-450) 227 K/UL (150-450) 229 K/UL (150-450) Mean Platelet Volume 12.2 FL (6.5-10.1) 11.5 FL (6.5-10.1) 11.1 FL (6.5-10.1) Neutrophils (%) (Auto) % (45.0-75.0) 65.0 % (45.0-75.0) 57.4 % (45.0-75.0) Lymphocytes (%) (Auto) % (20.0-45.0) 21.3 % (20.0-45.0) 27.8 % (20.0-45.0) Monocytes (%) (Auto) % (1.0-10.0) 8.2 % (1.0-10.0) 7.2 % (1.0-10.0) Eosinophils (%) (Auto) % (0.0-3.0) 0.2 % (0.0-3.0) 0.3 % (0.0-3.0) Basophils (%) (Auto) % (0.0-2.0) 5.2 % (0.0-2.0) 7.2 % (0.0-2.0) Differential Total Cells Counted 100 Neutrophils % (Manual) 70 % (45-75) Lymphocytes % (Manual) 22 % (20-45) Monocytes % (Manual) 5 % (1-10) Eosinophils % (Manual) 0 % (0-3) Basophils % (Manual) 2 % (0-2) Band Neutrophils 1 % (0-8) Reactive Lymphocytes Occasional Platelet Estimate Adequate Platelet Morphology Giant Platelets 1+ Polychromasia 1+ Anisocytosis 2+ Ovalocytes Occasional Sodium Level 139 MMOL/L (136-145) 139 MMOL/L (136-145) Potassium Level 4.2 MMOL/L (3.5-5.1) 4.9 MMOL/L (3.5-5.1) Chloride Level 107 MMOL/L (98-107) 106 MMOL/L (98-107) Carbon Dioxide Level 26 MMOL/L (21-32) 27 MMOL/L (21-32) Anion Gap 7 mmol/L (5-15) 6 mmol/L (5-15) Blood Urea Nitrogen 29 mg/dL (7-18) 31 mg/dL (7-18) Creatinine 0.8 MG/DL (0.55-1.30) 0.8 MG/DL (0.55-1.30) Estimat Glomerular Filtration Rate > 60 mL/min (>60) > 60 mL/min (>60) Glucose Level 125 MG/DL (74-106) 85 MG/DL (74-106) Calcium Level 8.6 MG/DL (8.5-10.1) 8.7 MG/DL (8.5-10.1) Total Bilirubin 0.5 MG/DL (0.2-1.0) 0.5 MG/DL (0.2-1.0) Aspartate Amino Transf (AST/SGOT) 14 U/L (15-37) 14 U/L (15-37) Alanine Aminotransferase (ALT/SGPT) 13 U/L (12-78) 17 U/L (12-78) Alkaline Phosphatase 86 U/L (46-116) 93 U/L (46-116) Total Protein 6.0 G/DL (6.4-8.2) 6.2 G/DL (6.4-8.2) Albumin 2.5 G/DL (3.4-5.0) 2.6 G/DL (3.4-5.0) Globulin 3.5 g/dL 3.6 g/dL Albumin/Globulin Ratio 0.7 (1.0-2.7) 0.7 (1.0-2.7) Digoxin Level 1.4 NG/ML (0.9-2.0) Height (Feet): 5 Height (Inches): 0.25 Weight (Pounds): 100 Objective Physical Exam Vitals: noted General: thin, other - frail, Chronically Ill Eyes: bilateral eye PERRL, bilateral eye EOMI ENT: moist mucus membranes - slightly dry Neck: full range of motion, no bony tend, other Respiratory: chest non-tender- Pacemaker left Cardiovascular: regular rate, rhythm Gastrointestinal: normal bowel sounds Genitourinary: no CVA tenderness Musculoskeletal: back normal, no calf tenderness, + kyphosis Neurologic: alert, biomedical technician III-XII nml as tested Skin: warm/dry - cool feet, pallor Best Kaplan MD Apr 19, 2020 06:17
--- NOTE | 2020-04-19 07:45 | NUR ---
Nurses notes Report given to Yuridia ROTH
[2020-04-19 07:48] VITALS: BP 110/58
[2020-04-19] MEDS: Digoxin 0.125mg tab ORAL SCH (08:49)
[2020-04-19] MEDS: Docusate 100mg cap ORAL SCH ×2 (08:49→18:00)
[2020-04-19] MEDS: Amiodarone 200mg tab ORAL SCH (08:50)
[2020-04-19] MEDS: Heparin 5000 units/ml inj SUBQ SCH ×2 (08:53→20:16)
--- NOTE | 2020-04-19 11:42 | Cardiac Electrophysiology PN ---
Assessment/Plan Assessment/Plan 1. Hypertension. On Lopressor 12.5 po bid 2. Status post [employer] pacer in 2010 and generator change by me in 2019. 3. Paroxysmal atrial fibrillation with rapid ventricular response. On digoxin, metoprolol and amiodarone. Off anticoagulation for recurrent bleeding and profound anemia. 4. Profound anemia with hemoglobin of 3 to 4. S/P 6 units of PRBC in 01/2020 S/P 4 units of PRBC again in 04/03 Had another unit on 04/14/20. Hb today is 9 5. History of hemothorax, status post VATS. 6. Pulmonary hypertension. 7. Myelofibrosis. Subjective Subjective Readmitted with weakness and severe anemia. Got another unit of PRBC. No CP or SOB. Hgb this am is 9 Objective Last 24 Hour Vital Signs Date Time Temp Pulse Resp B/P (MAP) Pulse Ox O2 Delivery O2 Flow Rate FiO2 04/19/20 09:00 Room Air 04/19/20 08:49 63 110/58 04/19/20 08:49 62 04/19/20 07:48 98.6 63 18 110/58 (75) 96 04/19/20 04:00 97.8 63 18 111/65 (80) 96 04/19/20 00:20 98.1 64 18 100/62 (75) 95 04/18/20 21:31 73 112/57 04/18/20 21:00 Room Air 04/18/20 20:00 98.5 73 20 112/57 (75) 95 04/18/20 16:00 98.8 73 20 110/60 (77) 98 04/18/20 12:00 98.8 67 18 115/57 (76) 96 Intake and Output 04/18/20 04/19/20 19:00 07:00 Intake Total 720 ml Balance 720 ml Intake Oral 720 ml # Voids 3 5 Laboratory Tests Test 04/19/20 05:10 White Blood Count 4.0 K/UL (4.8-10.8) L Red Blood Count 3.09 M/UL (4.20-5.40) L Hemoglobin 9.0 G/DL (12.0-16.0) L Hematocrit 27.2 % (37.0-47.0) L Mean Corpuscular Volume 88 FL (80-99) Mean Corpuscular Hemoglobin 29.0 PG (27.0-31.0) Mean Corpuscular Hemoglobin Concent 32.9 G/DL (32.0-36.0) Red Cell Distribution Width 15.6 % (11.6-14.8) H Platelet Count 229 K/UL (150-450) Mean Platelet Volume 11.1 FL (6.5-10.1) H Neutrophils (%) (Auto) 57.4 % (45.0-75.0) Lymphocytes (%) (Auto) 27.8 % (20.0-45.0) Monocytes (%) (Auto) 7.2 % (1.0-10.0) Eosinophils (%) (Auto) 0.3 % (0.0-3.0) Basophils (%) (Auto) 7.2 % (0.0-2.0) H Digoxin Level 1.4 NG/ML (0.9-2.0) Microbiology Date/Time Source Procedure Growth Status 04/16/20 22:00 Urine,Clean Catch Urine Culture - Preliminary Gram Negative P[place] Resulted Objective HEAD AND NECK: Showed no JVD. LUNGS: Clear. CARDIOVASCULAR: Regular S1 and S2 with no gallop. Pacemaker in left subclavian. ABDOMEN: Soft. EXTREMITIES: No pitting edema. River Freitas MD Apr 19, 2020 11:42
[2020-04-19 12:00] VITALS: BP 115/61
--- NOTE | 2020-04-19 12:56 | Surgery Progress Note ---
Surgery Progress Note Subjective Symptoms: improved, pain absent, tolerating diet, voiding well, passing flatus, BM Objective Last 24 Hour Vital Signs Date Time Temp Pulse Resp B/P (MAP) Pulse Ox O2 Delivery O2 Flow Rate FiO2 04/19/20 12:00 98.7 69 18 115/61 (79) 97 04/19/20 09:00 Room Air 04/19/20 08:49 63 110/58 04/19/20 08:49 62 04/19/20 07:48 98.6 63 18 110/58 (75) 96 04/19/20 04:00 97.8 63 18 111/65 (80) 96 04/19/20 00:20 98.1 64 18 100/62 (75) 95 04/18/20 21:31 73 112/57 04/18/20 21:00 Room Air 04/18/20 20:00 98.5 73 20 112/57 (75) 95 04/18/20 16:00 98.8 73 20 110/60 (77) 98 I&O Intake and Output 04/18/20 04/19/20 19:00 07:00 Intake Total 720 ml Balance 720 ml Intake Oral 720 ml # Voids 3 5 Cardiovascular: RSR Respiratory: clear Abdomen: soft, flat, non-tender, present bowel sounds, non-distended Extremities: no edema, no tenderness, no cyanosis Laboratory Tests Test 04/19/20 05:10 White Blood Count 4.0 K/UL (4.8-10.8) L Red Blood Count 3.09 M/UL (4.20-5.40) L Hemoglobin 9.0 G/DL (12.0-16.0) L Hematocrit 27.2 % (37.0-47.0) L Mean Corpuscular Volume 88 FL (80-99) Mean Corpuscular Hemoglobin 29.0 PG (27.0-31.0) Mean Corpuscular Hemoglobin Concent 32.9 G/DL (32.0-36.0) Red Cell Distribution Width 15.6 % (11.6-14.8) H Platelet Count 229 K/UL (150-450) Mean Platelet Volume 11.1 FL (6.5-10.1) H Neutrophils (%) (Auto) 57.4 % (45.0-75.0) Lymphocytes (%) (Auto) 27.8 % (20.0-45.0) Monocytes (%) (Auto) 7.2 % (1.0-10.0) Eosinophils (%) (Auto) 0.3 % (0.0-3.0) Basophils (%) (Auto) 7.2 % (0.0-2.0) H Digoxin Level 1.4 NG/ML (0.9-2.0) Plan Problems: (1) COVID-19 ruled out by laboratory testing (2) Profound anemia (3) Neck pain Assessment & Plan: 79-year-old female complaining of posterior neck pain. States cramping has only been ongoing recently feels she may have been sleeping on the wrong side. States she slept well last night and feels little bit better today. No nausea vomiting fever chills. Labs noted severe anemia no leukocytosis. Blood transfusion pending. Okay for warm compress per okay for anti-inflammatory no abscess no mass identified. Physical exam fairly benign. Will follow with recommendations and clinical examination. Okay for diet from surgical standpoint. Thank you will follow with recommendations. prior CT reviewed from last admission FINDINGS: Pulmonary arteries: Unremarkable. No pulmonary embolism. Aorta: No thoracic aortic aneurysm. Lungs: Atelectatic volume loss and consolidation in bilateral lower lobes. Pleural space: Mild to moderate bilateral layering pleural effusions. Heart: Cardiomegaly. No pericardial effusion. No evidence of RV dysfunction. Bones/joints: Multilevel degenerative changes throughout the visualized spine with disc space loss and endplate osteophytes. No acute fracture. No dislocation. Soft tissues: Unremarkable. Lymph nodes: Unremarkable. No enlarged lymph nodes. Tubes, lines and devices: Cardiac pacer in the left chest wall with the lead tips in the right atrium and right ventricle. Upper abdomen: Incidental note of a 3.5 cm hypodensity in the superior aspect of spine, possibly a cyst or hemangioma. IMPRESSION: 1. Mild to moderate bilateral layering pleural effusions. 2. Atelectatic volume loss and consolidation in bilateral lower lobes. 3. No evidence of pulmonary embolism. 4. Cardiomegaly. 5. Incidental note of a 3.5 cm hypodensity in the superior aspect of spine, possibly a cyst or hemangioma. 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
[2020-04-19 15:43] VITALS: BP 121/67
--- NOTE | 2020-04-19 17:21 | Internal Med Progress Note ---
Subjective Date of Service: Apr 19, 2020 Physician Name Roshan Edwards Attending Physician Antonio Adrian MD Current Medications Medications (Trade) Dose Ordered Sig/Escobar Route PRN Reason Start Time Stop Time Status Last Admin Dose Admin Acetaminophen (Tylenol) 650 mg Q6H PRN ORAL Mild Pain (Pain Scale 1-3) 04/13/20 23:00 05/13/20 22:59 Acetaminophen (Tylenol) 650 mg Q6H PRN ORAL Temp >100.5 04/13/20 23:00 05/13/20 22:59 Amiodarone HCl (Cordarone) 200 mg DAILY ORAL 04/14/20 09:00 07/13/20 08:59 04/19/20 08:50 Bisacodyl (Dulcolax) 5 mg DAILY PRN ORAL Constipation 04/13/20 23:15 07/12/20 23:14 Digoxin (Lanoxin) 0.125 mg DAILY ORAL 04/14/20 09:00 07/13/20 08:59 04/19/20 08:49 Docusate Sodium (Colace) 100 mg TWICE A DAY ORAL 04/14/20 09:00 05/14/20 08:59 04/19/20 08:49 Heparin Sodium (Porcine) (Heparin 5000 units/ml) 5,000 units EVERY 12 HOURS SUBQ 04/14/20 09:00 05/29/20 08:59 04/19/20 08:53 Levothyroxine Sodium (Synthroid) 25 mcg DAILY@0630 ORAL 04/14/20 06:30 05/14/20 06:29 04/19/20 06:05 Metoprolol Tartrate (Lopressor) 12.5 mg Q12HR ORAL 04/16/20 09:00 07/15/20 08:59 04/19/20 08:49 Multivitamins (Multivitamins) 1 tab DAILY ORAL 04/14/20 09:00 05/14/20 08:59 04/19/20 08:49 Ondansetron HCl (Zofran) 4 mg Q6H PRN IVP Nausea & Vomiting 04/13/20 23:00 05/13/20 22:59 Pantoprazole (Protonix) 40 mg DAILY ORAL 04/14/20 09:00 05/14/20 08:59 04/19/20 08:50 Allergies: Coded Allergies: No Known Allergies (Unverified , 04/24/18) ROS Limited/Unobtainable: No Constitutional: Reports: no symptoms HEENT: Reports: no symptoms Cardiovascular: Reports: no symptoms Respiratory: Reports: no symptoms Gastrointestinal/Abdominal: Reports: no symptoms Genitourinary: Reports: no symptoms Neurologic/Psychiatric: Reports: no symptoms Subjective 79 YO F with history of myelodysplastic syndrome admitted with fatigue and generalized weakness. Now severe anemia. Cover for Int Germán-Dr Adrian Objective Last Vital Signs Date Time Temp Pulse Resp B/P (MAP) Pulse Ox O2 Delivery O2 Flow Rate FiO2 04/19/20 15:43 98.0 67 19 121/67 (85) 98 04/19/20 09:00 Room Air Laboratory Tests Test 04/19/20 05:10 White Blood Count 4.0 K/UL (4.8-10.8) L Red Blood Count 3.09 M/UL (4.20-5.40) L Hemoglobin 9.0 G/DL (12.0-16.0) L Hematocrit 27.2 % (37.0-47.0) L Mean Corpuscular Volume 88 FL (80-99) Mean Corpuscular Hemoglobin 29.0 PG (27.0-31.0) Mean Corpuscular Hemoglobin Concent 32.9 G/DL (32.0-36.0) Red Cell Distribution Width 15.6 % (11.6-14.8) H Platelet Count 229 K/UL (150-450) Mean Platelet Volume 11.1 FL (6.5-10.1) H Neutrophils (%) (Auto) 57.4 % (45.0-75.0) Lymphocytes (%) (Auto) 27.8 % (20.0-45.0) Monocytes (%) (Auto) 7.2 % (1.0-10.0) Eosinophils (%) (Auto) 0.3 % (0.0-3.0) Basophils (%) (Auto) 7.2 % (0.0-2.0) H Digoxin Level 1.4 NG/ML (0.9-2.0) Microbiology Date/Time Source Procedure Growth Status 04/16/20 22:00 Urine,Clean Catch Urine Culture - Preliminary Escherichia Coli Gram Positive Cocci Resulted Intake and Output 04/18/20 04/19/20 19:00 07:00 Intake Total 720 ml Balance 720 ml Intake Oral 720 ml # Voids 3 5 Objective Objective GENERAL: Awake and responsive, in no acute distress. chronic ill-appearing. HEAD AND NECK: Pupils are equal and reactive to light. Extraocular movements are intact. Neck was supple. No JVD. LUNGS: Good air entry. No wheezing or rales. HEART: S1, S2. Irregular. No murmur or gallops. Pacemaker in left-sided chest wall was noted. ABDOMEN: Soft, nondistended, nontender. Positive bowel sounds. EXTREMITIES: No cyanosis, clubbing, or edema. NEUROLOGIC: Cranial nerves II through XII grossly intact. Motor is 5/5 in upper extremities and 4/5 in bilateral Lower extremities. PSYCHIATRIC: Mood and affect is intact. RECTAL/GENITOURINARY: Refused and deferred. Assessment/Plan Assessment/Plan Assessment/Plan Assessment/Plan 1. Severe anemia, most likely secondary to myelofibrosis. 2. Chronic atrial fibrillation. 3. History of polycythemia vera. 4. History of JAK2 mutation. 5. Myelofibrosis with myelodysplastic syndrome. 6. Hypertension. 7. Coronary artery disease. 8. Dyslipidemia. 9. Congestive heart failure. 10. History of right hemothorax, status post video-assisted thoracotomy with exploration on July 02, 2019. 11. Sick sinus syndrome, status post pacemaker. 12. Failure to thrive. 13. Severe protein-calorie malnutrition. PLAN: In medical Unit. Dr. Freitas from Cardiology electrophysiology Dr. Kaplan = Hematology-Oncology. S/P Transfusion 4 units PRBC Follow up with the laboratory Code status: Full Code. DVT prophylaxis: Heparin subcutaneous. PT Mobility Roshan Edwards MD Apr 19, 2020 17:21
--- NOTE | 2020-04-19 17:57 | NUR ---
NURSE NOTES: UNEVENTFUL DAY. PATIENT QUIET. NAPPING THROUGHOUT THE DAY. VSS. NO RESPIRATORY DISTRESS.
--- NOTE | 2020-04-19 19:25 | NUR ---
NURSE HAND-OFF: Important Events on Shift:NONE Patient Status: STABLE Diet: REGULAR Pending Orders: N/A Pending Results/Labs:N/A Pending MD notification: N/A Latest Vital Signs: Temperature 98.0 , Pulse 67 , B/P 121 /67 , Respiratory Rate 19 , O2 SAT 98 , Room Air Vital Sign Comment: STABLE Latest Yepez Fall Score: 45 Fall Risk: High Risk Safety Measures: Call light Within Reach, Bed Alarm Zone 2, Side Rails Side Rails x2, Bed position Low and Locked. Fall Precautions: Yellow Socks Door Sign Patient Fall Education Report given to RICARDO ROTH.
--- NOTE | 2020-04-19 19:32 | NUR ---
NURSE NOTES: Patient awake in bed, on room air, no signs of respiratory distress. IV access on the left forearm g22 saline lock. Call light and needs in reach, bed in lowest, lock engaged and alarm on. Will continue to monitor.
[2020-04-19 20:00] VITALS: BP 105/55
[2020-04-20 04:00] VITALS: BP 117/63
[2020-04-20] MEDS: Levothyroxine 25mcg tab ORAL SCH (05:32)
--- NOTE | 2020-04-20 06:36 | Hematology/Onc Progress Note ---
Assessment/Plan Assessment/Plan ASSESSMENT AND RECOMMENDATIONS # Polycythemia vera, JAK2+++. In prior was on hydroxyurea --> was int he past jak2+++ -> consider outpatient hydrea when h/h better --> imaging abd us ordered - Splenomegaly. 3 cm cyst within the spleen probably complex with at least one or 2 septations. Trace right pleural effusion. G allbladder sludge versus stones. --> hold off hydrea at this time # Pancytopenia now with initially with anemia of chronic disease due to underlying chronic medical issues, multifactorial, also due to polycythemia vera, hgb 5 on admission --> Anemia workup has been ordered, rule out gi bleed - results noted and cw acd --> No evidence of hemolysis is noted, peripheral smear has been reviewed. --> Hgb goal >7. Transfuse prn --> low threshold for gi evaluation in case has occult --> Hgb trend:4.8-->5.9-->7.7-->7.6->9 --> wbc 3.8-->4->3.6-->4 --> Patient received an EGD prior admission, by GI at that time that showed gastritis. No varices # Vertigo. --> per neuro as needed --> recs have been noted # Atrial fibrillation with rapid ventricular rate. --> Serial troponin levels will be performeD prior and neg --> per cards # Hypertension. Cont on clonidine # Obstructive sleep apnea. # Coronary artery disease. # Hypercholesteremia. # Congestive heart failure. # Dvt ppx heparin sq The time the the note is entered does not reflect the time the patient was examined. I greatly appreciate the consultation. Subjective HEENT: Denies: no symptoms, eye pain, blurred vision, tearing, double vision, ear pain, ear discharge, nose pain, nose congestion, throat pain, throat swelling, mouth pain, mouth swelling, other Cardiovascular: Denies: no symptoms, chest pain, edema, irregular heart rate, lightheadedness, palpitations, syncope, other Respiratory: Denies: no symptoms, cough, shortness of breath, SOB with excertion, SOB at rest, sputum, wheezing, other Gastrointestinal/Abdominal: Denies: no symptoms, abdomen distended, abdominal pain, black stools, tarry stools, blood in stool, constipated, diarrhea, difficulty swallowing, nausea, poor appetite, poor fluid intake, rectal bleeding, vomiting, other Genitourinary: Denies: no symptoms, burning, discharge, frequency, flank pain, hematuria, incontinence, pain, urgency, other Neurologic/Psychiatric: Denies: no symptoms, anxiety, depressed, emotional problems, headache, numbness, paresthesia, pre-existing deficit, seizure, tingling, tremors, weakness, other Endocrine: Denies: no symptoms, excessive sweating, flushing, intolerance to cold, intolerance to heat, increased hunger, increased thirst, increased urine, unexplained weight gain, unexplained weight loss, other Hematologic/Lymphatic: Denies: no symptoms, anemia, easy bleeding, easy bruising, adenopathy, other Allergies: Coded Allergies: No Known Allergies (Unverified , 04/24/18) Subjective 04/15 labs are pending, meds noted, no bleeding,dw rn, no major events 04/16: no acute evetns no distress, VSS 04/17: tolerated breakfast no distress. 04/18 overall is feeling better, dw rn, no major events noted, no bleeding 04/19 awake, alert, no pain, labs are noted, no bleeding 04/20 meds noted, no bleeding, dw rn, no major events Objective Objective Current Medications Medications (Trade) Dose Ordered Sig/Escobar Route PRN Reason Start Time Stop Time Status Last Admin Dose Admin Acetaminophen (Tylenol) 650 mg Q6H PRN ORAL Mild Pain (Pain Scale 1-3) 04/13/20 23:00 05/13/20 22:59 Acetaminophen (Tylenol) 650 mg Q6H PRN ORAL Temp >100.5 04/13/20 23:00 05/13/20 22:59 Amiodarone HCl (Cordarone) 200 mg DAILY ORAL 04/14/20 09:00 07/13/20 08:59 04/19/20 08:50 Bisacodyl (Dulcolax) 5 mg DAILY PRN ORAL Constipation 04/13/20 23:15 07/12/20 23:14 Digoxin (Lanoxin) 0.125 mg DAILY ORAL 04/14/20 09:00 07/13/20 08:59 04/19/20 08:49 Docusate Sodium (Colace) 100 mg TWICE A DAY ORAL 04/14/20 09:00 05/14/20 08:59 04/19/20 08:49 Heparin Sodium (Porcine) (Heparin 5000 units/ml) 5,000 units EVERY 12 HOURS SUBQ 04/14/20 09:00 05/29/20 08:59 04/19/20 20:16 Levothyroxine Sodium (Synthroid) 25 mcg DAILY@0630 ORAL 04/14/20 06:30 05/14/20 06:29 04/20/20 05:32 Metoprolol Tartrate (Lopressor) 12.5 mg Q12HR ORAL 04/16/20 09:00 07/15/20 08:59 04/19/20 08:49 Multivitamins (Multivitamins) 1 tab DAILY ORAL 04/14/20 09:00 05/14/20 08:59 04/19/20 08:49 Ondansetron HCl (Zofran) 4 mg Q6H PRN IVP Nausea & Vomiting 04/13/20 23:00 05/13/20 22:59 Pantoprazole (Protonix) 40 mg DAILY ORAL 04/14/20 09:00 05/14/20 08:59 04/19/20 08:50 Last 24 Hour Vital Signs Date Time Temp Pulse Resp B/P (MAP) Pulse Ox O2 Delivery O2 Flow Rate FiO2 04/20/20 04:00 97.7 61 17 117/63 (81) 96 04/19/20 20:36 Room Air 04/19/20 20:13 66 105/55 04/19/20 20:00 97.7 66 18 105/55 (72) 96 04/19/20 15:43 98.0 67 19 121/67 (85) 98 04/19/20 12:00 98.7 69 18 115/61 (79) 97 04/19/20 09:00 Room Air 04/19/20 08:49 63 110/58 04/19/20 08:49 62 04/19/20 07:48 98.6 63 18 110/58 (75) 96 04/19/20 04:00 97.8 63 18 111/65 (80) 96 04/19/20 00:20 98.1 64 18 100/62 (75) 95 04/18/20 21:31 73 112/57 04/18/20 21:00 Room Air 3/8/21 20:00 98.5 73 20 112/57 (75) 95 04/18/20 16:00 98.8 73 20 110/60 (77) 98 04/18/20 12:00 98.8 67 18 115/57 (76) 96 04/18/20 09:00 Room Air 04/18/20 08:51 68 118/60 04/18/20 08:50 68 04/18/20 08:00 98.8 68 20 118/60 (79) 95 Intake and Output 04/19/20 04/20/20 19:00 07:00 Intake Total 500 ml 300 ml Balance 500 ml 300 ml Intake Oral 300 ml Other 500 ml # Voids 13 # Bowel Movements 2 Labs Test 04/17/20 09:45 04/18/20 04:55 04/19/20 05:10 White Blood Count 3.6 K/UL (4.8-10.8) 3.5 K/UL (4.8-10.8) 4.0 K/UL (4.8-10.8) Red Blood Count 2.61 M/UL (4.20-5.40) 3.13 M/UL (4.20-5.40) 3.09 M/UL (4.20-5.40) Hemoglobin 7.6 G/DL (12.0-16.0) 9.1 G/DL (12.0-16.0) 9.0 G/DL (12.0-16.0) Hematocrit 22.7 % (37.0-47.0) 27.7 % (37.0-47.0) 27.2 % (37.0-47.0) Mean Corpuscular Volume 87 FL (80-99) 88 FL (80-99) 88 FL (80-99) Mean Corpuscular Hemoglobin 29.1 PG (27.0-31.0) 29.1 PG (27.0-31.0) 29.0 PG (27.0-31.0) Mean Corpuscular Hemoglobin Concent 33.4 G/DL (32.0-36.0) 32.9 G/DL (32.0-36.0) 32.9 G/DL (32.0-36.0) Red Cell Distribution Width 15.1 % (11.6-14.8) 15.7 % (11.6-14.8) 15.6 % (11.6-14.8) Platelet Count 233 K/UL (150-450) 227 K/UL (150-450) 229 K/UL (150-450) Mean Platelet Volume 12.2 FL (6.5-10.1) 11.5 FL (6.5-10.1) 11.1 FL (6.5-10.1) Neutrophils (%) (Auto) % (45.0-75.0) 65.0 % (45.0-75.0) 57.4 % (45.0-75.0) Lymphocytes (%) (Auto) % (20.0-45.0) 21.3 % (20.0-45.0) 27.8 % (20.0-45.0) Monocytes (%) (Auto) % (1.0-10.0) 8.2 % (1.0-10.0) 7.2 % (1.0-10.0) Eosinophils (%) (Auto) % (0.0-3.0) 0.2 % (0.0-3.0) 0.3 % (0.0-3.0) Basophils (%) (Auto) % (0.0-2.0) 5.2 % (0.0-2.0) 7.2 % (0.0-2.0) Differential Total Cells Counted 100 Neutrophils % (Manual) 70 % (45-75) Lymphocytes % (Manual) 22 % (20-45) Monocytes % (Manual) 5 % (1-10) Eosinophils % (Manual) 0 % (0-3) Basophils % (Manual) 2 % (0-2) Band Neutrophils 1 % (0-8) Reactive Lymphocytes Occasional Platelet Estimate Adequate Platelet Morphology Giant Platelets 1+ Polychromasia 1+ Anisocytosis 2+ Ovalocytes Occasional Sodium Level 139 MMOL/L (136-145) 139 MMOL/L (136-145) Potassium Level 4.2 MMOL/L (3.5-5.1) 4.9 MMOL/L (3.5-5.1) Chloride Level 107 MMOL/L (98-107) 106 MMOL/L (98-107) Carbon Dioxide Level 26 MMOL/L (21-32) 27 MMOL/L (21-32) Anion Gap 7 mmol/L (5-15) 6 mmol/L (5-15) Blood Urea Nitrogen 29 mg/dL (7-18) 31 mg/dL (7-18) Creatinine 0.8 MG/DL (0.55-1.30) 0.8 MG/DL (0.55-1.30) Estimat Glomerular Filtration Rate > 60 mL/min (>60) > 60 mL/min (>60) Glucose Level 125 MG/DL (74-106) 85 MG/DL (74-106) Calcium Level 8.6 MG/DL (8.5-10.1) 8.7 MG/DL (8.5-10.1) Total Bilirubin 0.5 MG/DL (0.2-1.0) 0.5 MG/DL (0.2-1.0) Aspartate Amino Transf (AST/SGOT) 14 U/L (15-37) 14 U/L (15-37) Alanine Aminotransferase (ALT/SGPT) 13 U/L (12-78) 17 U/L (12-78) Alkaline Phosphatase 86 U/L (46-116) 93 U/L (46-116) Total Protein 6.0 G/DL (6.4-8.2) 6.2 G/DL (6.4-8.2) Albumin 2.5 G/DL (3.4-5.0) 2.6 G/DL (3.4-5.0) Globulin 3.5 g/dL 3.6 g/dL Albumin/Globulin Ratio 0.7 (1.0-2.7) 0.7 (1.0-2.7) Digoxin Level 1.4 NG/ML (0.9-2.0) Height (Feet): 5 Height (Inches): 0.25 Weight (Pounds): 100 Objective Physical Exam Vitals: noted General: thin, other - frail, Chronically Ill Eyes: bilateral eye PERRL, bilateral eye EOMI ENT: moist mucus membranes - slightly dry Neck: full range of motion, no bony tend, other Respiratory: chest non-tender- Pacemaker left Cardiovascular: regular rate, rhythm Gastrointestinal: normal bowel sounds Genitourinary: no CVA tenderness Musculoskeletal: back normal, no calf tenderness, + kyphosis Neurologic: alert, poultryman III-XII nml as tested Skin: warm/dry - cool feet, pallor Best Kaplan MD Apr 20, 2020 06:36
[2020-04-20 08:00] VITALS: BP 121/55
--- NOTE | 2020-04-20 08:00 | NUR ---
NURSE NOTES: RN received patient from [facility] and patient in bed. Patient is aao X2, show no s/s of respiratory distress or pain. IV site is intact, clean, asymptomatic, and patent. Bed in lowest position and locked. Call light within reach. The patient wants the room to be dark. RN suspects it might be SE of digoxin and notified Dr. Adrian. No further orders at this time.
--- NOTE | 2020-04-20 08:21 | Cardiac Electrophysiology PN ---
Assessment/Plan Assessment/Plan 1. Hypertension. On Lopressor 12.5 po bid 2. Status post [employer] pacer in 2010 and generator change by me in 2018. 3. Paroxysmal atrial fibrillation with rapid ventricular response. On digoxin, metoprolol and amiodarone. Off anticoagulation for recurrent bleeding and profound anemia. 4. Profound anemia with hemoglobin of 3 to 4. S/P 6 units of PRBC in 01/2020 S/P 4 units of PRBC again in 04/03 Had another unit on 04/14/20. 5. History of hemothorax, status post VATS. 6. Pulmonary hypertension. 7. Myelofibrosis. RILEY RN Subjective Subjective Readmitted with weakness and severe anemia. Got another unit of PRBC. No CP or SOB. DC planning Objective Last 24 Hour Vital Signs Date Time Temp Pulse Resp B/P (MAP) Pulse Ox O2 Delivery O2 Flow Rate FiO2 04/20/20 04:00 97.7 61 17 117/63 (81) 96 04/19/20 20:36 Room Air 04/19/20 20:13 66 105/55 04/19/20 20:00 97.7 66 18 105/55 (72) 96 04/19/20 15:43 98.0 67 19 121/67 (85) 98 04/19/20 12:00 98.7 69 18 115/61 (79) 97 04/19/20 09:00 Room Air 04/19/20 08:49 63 110/58 04/19/20 08:49 62 Intake and Output 04/19/20 04/20/20 19:00 07:00 Intake Total 500 ml 300 ml Balance 500 ml 300 ml Intake Oral 300 ml Other 500 ml # Voids 13 # Bowel Movements 2 Objective HEAD AND NECK: Showed no JVD. LUNGS: Clear. CARDIOVASCULAR: Regular S1 and S2 with no gallop. Pacemaker in left subclavian. ABDOMEN: Soft. EXTREMITIES: No pitting edema. River Freitas MD Apr 20, 2020 08:21
--- NOTE | 2020-04-20 08:45 | NUR ---
PT NOTE Attempted to see patient for PT treatment. Patient declining to participate with PT. Will re-attempt later as schedule permits, Luh ROTH notified.
[2020-04-20] MEDS: Digoxin 0.125mg tab ORAL SCH (09:08)
[2020-04-20] MEDS: Docusate 100mg cap ORAL SCH ×2 (09:09→18:27)
[2020-04-20] MEDS: Amiodarone 200mg tab ORAL SCH (09:09)
[2020-04-20] MEDS: Heparin 5000 units/ml inj SUBQ SCH ×2 (09:11→21:26)
[2020-04-20 12:00] VITALS: BP 101/52
--- NOTE | 2020-04-20 12:29 | Internal Med Progress Note ---
Subjective Date of Service: Apr 20, 2020 Physician Name Roshan Edwards Attending Physician Antonio Adrian MD Current Medications Medications (Trade) Dose Ordered Sig/Escobar Route PRN Reason Start Time Stop Time Status Last Admin Dose Admin Acetaminophen (Tylenol) 650 mg Q6H PRN ORAL Mild Pain (Pain Scale 1-3) 04/13/20 23:00 05/13/20 22:59 Acetaminophen (Tylenol) 650 mg Q6H PRN ORAL Temp >100.5 04/13/20 23:00 05/13/20 22:59 Amiodarone HCl (Cordarone) 200 mg DAILY ORAL 04/14/20 09:00 07/13/20 08:59 04/20/20 09:09 Bisacodyl (Dulcolax) 5 mg DAILY PRN ORAL Constipation 04/13/20 23:15 07/12/20 23:14 Digoxin (Lanoxin) 0.125 mg DAILY ORAL 04/14/20 09:00 07/13/20 08:59 04/20/20 09:08 Docusate Sodium (Colace) 100 mg TWICE A DAY ORAL 04/14/20 09:00 05/14/20 08:59 04/20/20 09:09 Heparin Sodium (Porcine) (Heparin 5000 units/ml) 5,000 units EVERY 12 HOURS SUBQ 04/14/20 09:00 05/29/20 08:59 04/20/20 09:11 Levothyroxine Sodium (Synthroid) 25 mcg DAILY@0630 ORAL 04/14/20 06:30 05/14/20 06:29 04/20/20 05:32 Metoprolol Tartrate (Lopressor) 12.5 mg Q12HR ORAL 04/16/20 09:00 07/15/20 08:59 04/20/20 09:09 Multivitamins (Multivitamins) 1 tab DAILY ORAL 04/14/20 09:00 05/14/20 08:59 04/20/20 09:09 Ondansetron HCl (Zofran) 4 mg Q6H PRN IVP Nausea & Vomiting 04/13/20 23:00 05/13/20 22:59 Pantoprazole (Protonix) 40 mg DAILY ORAL 04/14/20 09:00 05/14/20 08:59 04/20/20 09:09 Allergies: Coded Allergies: No Known Allergies (Unverified , 04/24/18) ROS Limited/Unobtainable: Yes Subjective 79 YO F with history of myelodysplastic syndrome admitted with fatigue and generalized weakness. Now severe anemia. Cover for Int Med-Dr Adrian Objective Last Vital Signs Date Time Temp Pulse Resp B/P (MAP) Pulse Ox O2 Delivery O2 Flow Rate FiO2 04/20/20 09:09 69 121/55 04/20/20 09:00 Room Air 04/20/20 08:00 98.2 18 95 Intake and Output 04/19/20 04/20/20 19:00 07:00 Intake Total 500 ml 300 ml Balance 500 ml 300 ml Intake Oral 300 ml Other 500 ml # Voids 13 # Bowel Movements 2 Objective Objective GENERAL: Awake and responsive, in no acute distress. chronic ill-appearing. HEAD AND NECK: Pupils are equal and reactive to light. Extraocular movements are intact. Neck was supple. No JVD. LUNGS: Good air entry. No wheezing or rales. HEART: S1, S2. Irregular. No murmur or gallops. Pacemaker in left-sided chest wall was noted. ABDOMEN: Soft, nondistended, nontender. Positive bowel sounds. EXTREMITIES: No cyanosis, clubbing, or edema. NEUROLOGIC: Cranial nerves II through XII grossly intact. Motor is 5/5 in upper extremities and 4/5 in bilateral Lower extremities. PSYCHIATRIC: Mood and affect is intact. RECTAL/GENITOURINARY: Refused and deferred. Assessment/Plan Assessment/Plan Assessment/Plan Assessment/Plan 1. Severe anemia, most likely secondary to myelofibrosis. 2. Chronic atrial fibrillation. 3. History of polycythemia vera. 4. History of JAK2 mutation. 5. Myelofibrosis with myelodysplastic syndrome. 6. Hypertension. 7. Coronary artery disease. 8. Dyslipidemia. 9. Congestive heart failure. 10. History of right hemothorax, status post video-assisted thoracotomy with exploration on July 02, 2019. 11. Sick sinus syndrome, status post pacemaker. 12. Failure to thrive. 13. Severe protein-calorie malnutrition. PLAN: In medical Unit. Dr. Freitas from Cardiology electrophysiology Dr. Kaplan = Hematology-Oncology. S/P Transfusion 4 units PRBC Follow up with the laboratory Code status: Full Code. DVT prophylaxis: Heparin subcutaneous. PT Mobility Roshan Edwards MD Apr 20, 2020 12:29
--- NOTE | 2020-04-20 14:17 | Surgery Progress Note ---
Surgery Progress Note Subjective Symptoms: improved, pain absent, tolerating diet, voiding well, passing flatus, BM Objective Last 24 Hour Vital Signs Date Time Temp Pulse Resp B/P (MAP) Pulse Ox O2 Delivery O2 Flow Rate FiO2 04/20/20 12:00 97.5 61 17 101/52 (68) 94 04/20/20 09:09 69 121/55 04/20/20 09:08 69 04/20/20 09:00 Room Air 04/20/20 08:00 98.2 69 18 121/55 (77) 95 04/20/20 04:00 97.7 61 17 117/63 (81) 96 04/19/20 20:36 Room Air 04/19/20 20:13 66 105/55 04/19/20 20:00 97.7 66 18 105/55 (72) 96 04/19/20 15:43 98.0 67 19 121/67 (85) 98 I&O Intake and Output 04/19/20 04/20/20 19:00 07:00 Intake Total 500 ml 300 ml Balance 500 ml 300 ml Intake Oral 300 ml Other 500 ml # Voids 13 # Bowel Movements 2 Cardiovascular: RSR Respiratory: clear Abdomen: soft, flat, non-tender, present bowel sounds, non-distended Extremities: no edema, no tenderness, no cyanosis Plan Problems: (1) COVID-19 ruled out by laboratory testing (2) Profound anemia (3) Neck pain Assessment & Plan: 79-year-old female complaining of posterior neck pain. States cramping has only been ongoing recently feels she may have been sleeping on the wrong side. States she slept well last night and feels little bit better today. No nausea vomiting fever chills. Labs noted severe anemia no leukocytosis. Blood transfusion pending. Okay for warm compress per okay for anti-inflammatory no abscess no mass identified. Physical exam fairly benign. Will follow with recommendations and clinical examination. Okay for diet from surgical standpoint. Thank you will follow with recommendations. prior CT reviewed from last admission FINDINGS: Pulmonary arteries: Unremarkable. No pulmonary embolism. Aorta: No thoracic aortic aneurysm. Lungs: Atelectatic volume loss and consolidation in bilateral lower lobes. Pleural space: Mild to moderate bilateral layering pleural effusions. Heart: Cardiomegaly. No pericardial effusion. No evidence of RV dysfunction. Bones/joints: Multilevel degenerative changes throughout the visualized spine with disc space loss and endplate osteophytes. No acute fracture. No dislocation. Soft tissues: Unremarkable. Lymph nodes: Unremarkable. No enlarged lymph nodes. Tubes, lines and devices: Cardiac pacer in the left chest wall with the lead tips in the right atrium and right ventricle. Upper abdomen: Incidental note of a 3.5 cm hypodensity in the superior aspect of spine, possibly a cyst or hemangioma. IMPRESSION: 1. Mild to moderate bilateral layering pleural effusions. 2. Atelectatic volume loss and consolidation in bilateral lower lobes. 3. No evidence of pulmonary embolism. 4. Cardiomegaly. 5. Incidental note of a 3.5 cm hypodensity in the superior aspect of spine, possibly a cyst or hemangioma. incidental much lower unlikely related to neck pain (4) Generalized weakness (5) Failure to thrive (6) Proteinuria (7) Altered mental state (8) Hypotension (9) Protein-calorie malnutrition, severe (10) Abnormal LFTs (11) Severe anemia (12) Symptomatic anemia (13) Signs and symptoms of anemia (14) ACS (acute coronary syndrome) (15) Pyelonephritis (16) CAD (coronary artery disease) (17) COPD (chronic obstructive pulmonary disease) (18) positional vertigo (19) KELVIN (obstructive sleep apnea) (20) Peripheral neuropathy (21) Myelofibrosis (22) JAK2 V617F mutation (23) UTI (urinary tract infection) (24) Polycythemia vera (25) Pacemaker (26) Acute encephalopathy (27) Chronic anticoagulation (28) RLL pneumonia (29) Hematothorax (30) Thoracostomy tube in place (31) Collapse of left lung (32) Paroxysmal A-fib (33) Anemia Errol Estrada Apr 20, 2020 14:17
[2020-04-20 16:00] VITALS: BP 102/52
--- NOTE | 2020-04-20 17:15 | NUR ---
NURSE NOTES: Patient pulled out her IV and refusing to have one inserted 3X despite benefits and risks explained. RN notified Dr. Adrian. No further orders at this time.
--- NOTE | 2020-04-20 19:15 | NUR ---
NURSE NOTES: Patient is aao X2, show no s/s of respiratory distress or pain. IV site is intact, clean, asymptomatic, and patent. Bed in lowest position and locked. Call light within reach. The patient wants the room to be dark
--- NOTE | 2020-04-20 19:40 | NUR ---
NURSE HAND-OFF: Important Events on Shift:Patient pulled out the IV, possible SE of Digoxin Patient Status: stable Diet: regular Pending Orders: n/a Pending Results/Labs:n.a Pending MD notification:n/a Latest Vital Signs: Temperature 98.0 , Pulse 68 , B/P 102 /52 , Respiratory Rate 17 , O2 SAT 95 , Room Air, O2 Flow Rate . Vital Sign Comment: stable Latest Yepez Fall Score: 45 Fall Risk: High Risk Safety Measures: Call light Within Reach, Bed Alarm Zone 2, Side Rails Side Rails x2, Bed position Low and Locked. Fall Precautions: Yellow Socks Door Sign Patient Fall Education Report given to Raysa.
[2020-04-20 20:00] VITALS: BP 118/58
[2020-04-21] VITALS: BP 129/64
[2020-04-21 04:00] VITALS: BP 105/53
--- NOTE | 2020-04-21 06:05 | Hematology/Onc Progress Note ---
Assessment/Plan Assessment/Plan ASSESSMENT AND RECOMMENDATIONS # Polycythemia vera, JAK2+++. In prior was on hydroxyurea --> was int he past jak2+++ -> consider outpatient hydrea when h/h better --> imaging abd us ordered - Splenomegaly. 3 cm cyst within the spleen probably complex with at least one or 2 septations. Trace right pleural effusion. G allbladder sludge versus stones. --> hold off hydrea at this time # Pancytopenia now with initially with anemia of chronic disease due to underlying chronic medical issues, multifactorial, also due to polycythemia vera, hgb 5 on admission --> Anemia workup has been ordered, rule out gi bleed - results noted and cw acd --> No evidence of hemolysis is noted, peripheral smear has been reviewed. --> Hgb goal >7. Transfuse prn --> low threshold for gi evaluation in case has occult --> Hgb trend:4.8-->5.9-->7.7-->7.6->9 --> wbc 3.8-->4->3.6-->4 --> Patient received an EGD prior admission, by GI at that time that showed gastritis. No varices # Vertigo. --> per neuro as needed --> recs have been noted # Atrial fibrillation with rapid ventricular rate. --> Serial troponin levels will be performeD prior and neg --> per cards # Hypertension. Cont on clonidine # Obstructive sleep apnea. # Coronary artery disease. # Hypercholesteremia. # Congestive heart failure. # Dvt ppx heparin sq The time the the note is entered does not reflect the time the patient was examined. I greatly appreciate the consultation. Subjective HEENT: Denies: no symptoms, eye pain, blurred vision, tearing, double vision, ear pain, ear discharge, nose pain, nose congestion, throat pain, throat swelling, mouth pain, mouth swelling, other Cardiovascular: Denies: no symptoms, chest pain, edema, irregular heart rate, lightheadedness, palpitations, syncope, other Respiratory: Denies: no symptoms, cough, shortness of breath, SOB with excertion, SOB at rest, sputum, wheezing, other Gastrointestinal/Abdominal: Denies: no symptoms, abdomen distended, abdominal pain, black stools, tarry stools, blood in stool, constipated, diarrhea, difficulty swallowing, nausea, poor appetite, poor fluid intake, rectal bleeding, vomiting, other Genitourinary: Denies: no symptoms, burning, discharge, frequency, flank pain, hematuria, incontinence, pain, urgency, other Neurologic/Psychiatric: Denies: no symptoms, anxiety, depressed, emotional problems, headache, numbness, paresthesia, pre-existing deficit, seizure, tingling, tremors, weakness, other Endocrine: Denies: no symptoms, excessive sweating, flushing, intolerance to cold, intolerance to heat, increased hunger, increased thirst, increased urine, unexplained weight gain, unexplained weight loss, other Hematologic/Lymphatic: Denies: no symptoms, anemia, easy bleeding, easy bruising, adenopathy, other Allergies: Coded Allergies: No Known Allergies (Unverified , 04/24/18) Subjective 04/15 labs are pending, meds noted, no bleeding,destiny rn, no major events 04/16: no acute evetns no distress, VSS 04/17: tolerated breakfast no distress. 04/18 overall is feeling better, destiny rn, no major events noted, no bleeding 04/19 awake, alert, no pain, labs are noted, no bleeding 04/20 meds noted, no bleeding, destiny rn, no major events 04/21 refusing ivl access, had one pulled out, meds noted Objective Objective Current Medications Medications (Trade) Dose Ordered Sig/Escobar Route PRN Reason Start Time Stop Time Status Last Admin Dose Admin Acetaminophen (Tylenol) 650 mg Q6H PRN ORAL Mild Pain (Pain Scale 1-3) 04/13/20 23:00 05/13/20 22:59 Acetaminophen (Tylenol) 650 mg Q6H PRN ORAL Temp >100.5 04/13/20 23:00 05/13/20 22:59 Amiodarone HCl (Cordarone) 200 mg DAILY ORAL 04/14/20 09:00 07/13/20 08:59 04/20/20 09:09 Bisacodyl (Dulcolax) 5 mg DAILY PRN ORAL Constipation 04/13/20 23:15 07/12/20 23:14 Digoxin (Lanoxin) 0.125 mg DAILY ORAL 04/14/20 09:00 07/13/20 08:59 04/20/20 09:08 Docusate Sodium (Colace) 100 mg TWICE A DAY ORAL 04/14/20 09:00 05/14/20 08:59 04/20/20 18:27 Heparin Sodium (Porcine) (Heparin 5000 units/ml) 5,000 units EVERY 12 HOURS SUBQ 04/14/20 09:00 05/29/20 08:59 04/20/20 21:26 Levothyroxine Sodium (Synthroid) 25 mcg DAILY@0630 ORAL 04/14/20 06:30 05/14/20 06:29 04/20/20 05:32 Metoprolol Tartrate (Lopressor) 12.5 mg Q12HR ORAL 04/16/20 09:00 07/15/20 08:59 04/20/20 09:09 Multivitamins (Multivitamins) 1 tab DAILY ORAL 04/14/20 09:00 05/14/20 08:59 04/20/20 09:09 Ondansetron HCl (Zofran) 4 mg Q6H PRN IVP Nausea & Vomiting 04/13/20 23:00 05/13/20 22:59 Pantoprazole (Protonix) 40 mg DAILY ORAL 04/14/20 09:00 05/14/20 08:59 04/20/20 09:09 Last 24 Hour Vital Signs Date Time Temp Pulse Resp B/P (MAP) Pulse Ox O2 Delivery O2 Flow Rate FiO2 04/21/20 04:00 98.1 61 18 105/53 (70) 95 04/21/20 00:00 98.7 80 20 129/64 (85) 96 04/20/20 21:00 Room Air 04/20/20 21:00 76 118/58 04/20/20 20:00 98.4 76 20 118/58 (78) 96 04/20/20 16:00 98.0 68 17 102/52 (69) 95 04/20/20 12:00 97.5 61 17 101/52 (68) 94 04/20/20 09:09 69 121/55 04/20/20 09:08 69 04/20/20 09:00 Room Air 04/20/20 08:00 98.2 69 18 121/55 (77) 95 04/20/20 04:00 97.7 61 17 117/63 (81) 96 04/19/20 20:36 Room Air 04/19/20 20:13 66 105/55 04/19/20 20:00 97.7 66 18 105/55 (72) 96 04/19/20 15:43 98.0 67 19 121/67 (85) 98 04/19/20 12:00 98.7 69 18 115/61 (79) 97 04/19/20 09:00 Room Air 04/19/20 08:49 63 110/58 04/19/20 08:49 62 04/19/20 07:48 98.6 63 18 110/58 (75) 96 Intake and Output 04/20/20 04/21/20 19:00 07:00 Intake Total 720 ml 500 ml Balance 720 ml 500 ml Intake Oral 720 ml 500 ml # Voids 4 4 # Bowel Movements 2 2 Labs Test 04/19/20 05:10 White Blood Count 4.0 K/UL (4.8-10.8) Red Blood Count 3.09 M/UL (4.20-5.40) Hemoglobin 9.0 G/DL (12.0-16.0) Hematocrit 27.2 % (37.0-47.0) Mean Corpuscular Volume 88 FL (80-99) Mean Corpuscular Hemoglobin 29.0 PG (27.0-31.0) Mean Corpuscular Hemoglobin Concent 32.9 G/DL (32.0-36.0) Red Cell Distribution Width 15.6 % (11.6-14.8) Platelet Count 229 K/UL (150-450) Mean Platelet Volume 11.1 FL (6.5-10.1) Neutrophils (%) (Auto) 57.4 % (45.0-75.0) Lymphocytes (%) (Auto) 27.8 % (20.0-45.0) Monocytes (%) (Auto) 7.2 % (1.0-10.0) Eosinophils (%) (Auto) 0.3 % (0.0-3.0) Basophils (%) (Auto) 7.2 % (0.0-2.0) Digoxin Level 1.4 NG/ML (0.9-2.0) Height (Feet): 5 Height (Inches): 0.25 Weight (Pounds): 100 Objective Physical Exam Vitals: noted General: thin, other - frail, Chronically Ill Eyes: bilateral eye PERRL, bilateral eye EOMI ENT: moist mucus membranes - slightly dry Neck: full range of motion, no bony tend, other Respiratory: chest non-tender- Pacemaker left Cardiovascular: regular rate, rhythm Gastrointestinal: normal bowel sounds Genitourinary: no CVA tenderness Musculoskeletal: back normal, no calf tenderness, + kyphosis Neurologic: alert, business area director III-XII nml as tested Skin: warm/dry - cool feet, pallor Best Kaplan MD Apr 21, 2020 06:04
[2020-04-21 06:23] LABS: BASOPHILS % (AUTO) 6.9 % (0.0-2.0); EOSINOPHILS % (AUTO) 0.1 % (0.0-3.0); HEMATOCRIT 24.8 % (37.0-47.0); HEMOGLOBIN 8.3 G/DL (12.0-16.0); LYMPHOCYTES % (AUTO) 23.9 % (20.0-45.0); MEAN CORPUSCULAR VOLUME 89 FL (80-99); MONOCYTES % (AUTO) 11.7 % (1.0-10.0); NEUTROPHILS % (AUTO) 57.4 % (45.0-75.0); PLATELET COUNT 259 K/UL (150-450); RED BLOOD COUNT 2.79 M/UL (4.20-5.40); RED CELL DISTRIBUTION WIDTH 15.7 % (11.6-14.8); WHITE BLOOD COUNT 4.1 K/UL (4.8-10.8)
[2020-04-21 06:50] LABS: ANION GAP 3 mmol/L (5-15); BLOOD UREA NITROGEN 31 mg/dL (7-18); CALCIUM 8.6 MG/DL (8.5-10.1); CARBON DIOXIDE 30 MMOL/L (21-32); CHLORIDE 106 MMOL/L (98-107); CREATININE 0.8 MG/DL (0.55-1.30); POTASSIUM 4.9 MMOL/L (3.5-5.1); SODIUM 139 MMOL/L (136-145)
[2020-04-21] MEDS: Levothyroxine 25mcg tab ORAL SCH (06:51)
--- NOTE | 2020-04-21 07:55 | NUR ---
NURSE NOTES: Patient awake and alert,respirations unlabored.Per report patient has no IV and DR is aware.Patient ate breakfast this morning.Bed alarm on,call light within reach.
[2020-04-21 08:00] VITALS: BP 101/53
--- NOTE | 2020-04-21 08:48 | NUR ---
RD ASSESSMENT & RECOMMENDATIONS SEE CARE ACTIVITY FOR COMPLETE ASSESSMENT DAILY ESTIMATED NEEDS: Needs based on underweight, wt loss, cardiac/ 47.6kg 30-35 kcals/kg 9661-3541 total kcals 1-1.5 g protein/kg 48-71 g total protein 20-25 mL/kg 952-1190 total fluid mLs NUTRITION DIAGNOSIS: Increased kcal/prot needs R/T underweight status, suspected recent significant wt loss as evidenced by pt @ 84% w/ low BMI per guidelines, suspected significant wt loss of 6lbs/ 5.5% in 1 month. CURRENT DIET:REGULAR PO DIET RECOMMENDATIONS: Maintain liberalized regular diet/ texture as tolerated ADDITIONAL RECOMMENDATIONS: 1) Standing wt or calibrated bedscale wt for accurate CBW 2) Ensure Enlive TID Snacks to trays TID as tolerated 3) Monitor Po intake closely, consider appetite stimulant w/ consistently poor PO 4) Monitor lytes, replete as needed BUN up, rec IV hydration (no IV access at this time 04/21)
[2020-04-21] MEDS: Amiodarone 200mg tab ORAL SCH (09:07)
[2020-04-21] MEDS: Digoxin 0.125mg tab ORAL SCH (09:08)
[2020-04-21] MEDS: Docusate 100mg cap ORAL SCH (09:08)
[2020-04-21] MEDS: Heparin 5000 units/ml inj SUBQ SCH (09:09)
--- NOTE | 2020-04-21 10:38 | Cardiac Electrophysiology PN ---
Assessment/Plan Assessment/Plan 1. Hypertension. On Lopressor 12.5 po bid 2. Status post [employer] pacer in 2010 and gen change by me in 2019. 3. Paroxysmal atrial fibrillation with rapid ventricular response. On digoxin, metoprolol and amiodarone. Off anticoagulation for recurrent bleeding and profound anemia. Check Dig level 4. Profound anemia with hemoglobin of 3 to 4. S/P 6 units of PRBC in 01/2020 S/P 4 units of PRBC again in 04/03 Had another unit on 04/14/20. 5. History of hemothorax, status post VATS. 6. Pulmonary hypertension. 7. Myelofibrosis. DW RN Subjective Subjective Readmitted with weakness and severe anemia. Got another unit of PRBC. No CP or SOB. Very weak. Depressed Objective Last 24 Hour Vital Signs Date Time Temp Pulse Resp B/P (MAP) Pulse Ox O2 Delivery O2 Flow Rate FiO2 04/21/20 10:30 Room Air 04/21/20 09:08 68 04/21/20 08:58 61 101/52 04/21/20 08:00 97.9 68 20 101/53 (69) 94 04/21/20 04:00 98.1 61 18 105/53 (70) 95 04/21/20 00:00 98.7 80 20 129/64 (85) 96 04/20/20 21:00 Room Air 04/20/20 21:00 76 118/58 04/20/20 20:00 98.4 76 20 118/58 (78) 96 04/20/20 16:00 98.0 68 17 102/52 (69) 95 04/20/20 12:00 97.5 61 17 101/52 (68) 94 Intake and Output 04/20/20 04/21/20 19:00 07:00 Intake Total 720 ml 500 ml Balance 720 ml 500 ml Intake Oral 720 ml 500 ml # Voids 4 4 # Bowel Movements 2 2 Laboratory Tests Test 04/21/20 04:50 White Blood Count 4.1 K/UL (4.8-10.8) L Red Blood Count 2.79 M/UL (4.20-5.40) L Hemoglobin 8.3 G/DL (12.0-16.0) L Hematocrit 24.8 % (37.0-47.0) L Mean Corpuscular Volume 89 FL (80-99) Mean Corpuscular Hemoglobin 29.6 PG (27.0-31.0) Mean Corpuscular Hemoglobin Concent 33.3 G/DL (32.0-36.0) Red Cell Distribution Width 15.7 % (11.6-14.8) H Platelet Count 259 K/UL (150-450) Mean Platelet Volume 12.4 FL (6.5-10.1) H Neutrophils (%) (Auto) 57.4 % (45.0-75.0) Lymphocytes (%) (Auto) 23.9 % (20.0-45.0) Monocytes (%) (Auto) 11.7 % (1.0-10.0) H Eosinophils (%) (Auto) 0.1 % (0.0-3.0) Basophils (%) (Auto) 6.9 % (0.0-2.0) H Sodium Level 139 MMOL/L (136-145) Potassium Level 4.9 MMOL/L (3.5-5.1) Chloride Level 106 MMOL/L (98-107) Carbon Dioxide Level 30 MMOL/L (21-32) Anion Gap 3 mmol/L (5-15) L Blood Urea Nitrogen 31 mg/dL (7-18) H Creatinine 0.8 MG/DL (0.55-1.30) Estimat Glomerular Filtration Rate > 60 mL/min (>60) Glucose Level 85 MG/DL (74-106) Calcium Level 8.6 MG/DL (8.5-10.1) Objective HEAD AND NECK: Showed no JVD. LUNGS: Clear. CARDIOVASCULAR: Regular S1 and S2 with no gallop. Pacemaker in left subclavian. ABDOMEN: Soft. EXTREMITIES: No pitting edema. River Freitas MD Apr 21, 2020 10:38
--- NOTE | 2020-04-21 11:10 | NUR ---
PT NOTE Attempted x2 to see patient for PT treatment (9:00 a.m. and 11:10 a.m.). Patient declining to participate with PT, does not offer reason. Mili ROTH notified, will follow.
[2020-04-21 12:00] VITALS: BP 111/51
--- NOTE | 2020-04-21 12:21 | Surgery Progress Note ---
Surgery Progress Note Subjective Additional Comments h/h remains stable no n/v comfortable no complaints Objective Last 24 Hour Vital Signs Date Time Temp Pulse Resp B/P (MAP) Pulse Ox O2 Delivery O2 Flow Rate FiO2 04/21/20 10:30 Room Air 04/21/20 09:08 68 04/21/20 08:58 61 101/52 04/21/20 08:00 97.9 68 20 101/53 (69) 94 04/21/20 04:00 98.1 61 18 105/53 (70) 95 04/21/20 00:00 98.7 80 20 129/64 (85) 96 04/20/20 21:00 Room Air 04/20/20 21:00 76 118/58 04/20/20 20:00 98.4 76 20 118/58 (78) 96 04/20/20 16:00 98.0 68 17 102/52 (69) 95 I&O Intake and Output 04/20/20 04/21/20 19:00 07:00 Intake Total 720 ml 500 ml Balance 720 ml 500 ml Intake Oral 720 ml 500 ml # Voids 4 4 # Bowel Movements 2 2 Cardiovascular: RSR Respiratory: clear Abdomen: soft, non-tender, present bowel sounds, non-distended Extremities: no edema, no tenderness, no cyanosis Laboratory Tests Test 04/21/20 04:50 White Blood Count 4.1 K/UL (4.8-10.8) L Red Blood Count 2.79 M/UL (4.20-5.40) L Hemoglobin 8.3 G/DL (12.0-16.0) L Hematocrit 24.8 % (37.0-47.0) L Mean Corpuscular Volume 89 FL (80-99) Mean Corpuscular Hemoglobin 29.6 PG (27.0-31.0) Mean Corpuscular Hemoglobin Concent 33.3 G/DL (32.0-36.0) Red Cell Distribution Width 15.7 % (11.6-14.8) H Platelet Count 259 K/UL (150-450) Mean Platelet Volume 12.4 FL (6.5-10.1) H Neutrophils (%) (Auto) 57.4 % (45.0-75.0) Lymphocytes (%) (Auto) 23.9 % (20.0-45.0) Monocytes (%) (Auto) 11.7 % (1.0-10.0) H Eosinophils (%) (Auto) 0.1 % (0.0-3.0) Basophils (%) (Auto) 6.9 % (0.0-2.0) H Sodium Level 139 MMOL/L (136-145) Potassium Level 4.9 MMOL/L (3.5-5.1) Chloride Level 106 MMOL/L (98-107) Carbon Dioxide Level 30 MMOL/L (21-32) Anion Gap 3 mmol/L (5-15) L Blood Urea Nitrogen 31 mg/dL (7-18) H Creatinine 0.8 MG/DL (0.55-1.30) Estimat Glomerular Filtration Rate > 60 mL/min (>60) Glucose Level 85 MG/DL (74-106) Calcium Level 8.6 MG/DL (8.5-10.1) Plan Problems: (1) COVID-19 ruled out by laboratory testing (2) Profound anemia (3) Neck pain Assessment & Plan: 79-year-old female complaining of posterior neck pain. States cramping has only been ongoing recently feels she may have been sleeping on the wrong side. States she slept well last night and feels little bit better today. No nausea vomiting fever chills. Labs noted severe anemia no leukocytosis. Blood transfusion pending. Okay for warm compress per okay for anti-inflammatory no abscess no mass identified. Physical exam fairly benign. Will follow with recommendations and clinical examination. Okay for diet from surgical standpoint. Thank you will follow with recommendations. prior CT reviewed from last admission FINDINGS: Pulmonary arteries: Unremarkable. No pulmonary embolism. Aorta: No thoracic aortic aneurysm. Lungs: Atelectatic volume loss and consolidation in bilateral lower lobes. Pleural space: Mild to moderate bilateral layering pleural effusions. Heart: Cardiomegaly. No pericardial effusion. No evidence of RV dysfunction. Bones/joints: Multilevel degenerative changes throughout the visualized spine with disc space loss and endplate osteophytes. No acute fracture. No dislocation. Soft tissues: Unremarkable. Lymph nodes: Unremarkable. No enlarged lymph nodes. Tubes, lines and devices: Cardiac pacer in the left chest wall with the lead tips in the right atrium and right ventricle. Upper abdomen: Incidental note of a 3.5 cm hypodensity in the superior aspect of spine, possibly a cyst or hemangioma. IMPRESSION: 1. Mild to moderate bilateral layering pleural effusions. 2. Atelectatic volume loss and consolidation in bilateral lower lobes. 3. No evidence of pulmonary embolism. 4. Cardiomegaly. 5. Incidental note of a 3.5 cm hypodensity in the superior aspect of spine, possibly a cyst or hemangioma. incidental much lower unlikely related to neck pain (4) Generalized weakness (5) Failure to thrive (6) Proteinuria (7) Altered mental state (8) Hypotension (9) Protein-calorie malnutrition, severe (10) Abnormal LFTs (11) Severe anemia (12) Symptomatic anemia (13) Signs and symptoms of anemia (14) ACS (acute coronary syndrome) (15) Pyelonephritis (16) CAD (coronary artery disease) (17) COPD (chronic obstructive pulmonary disease) (18) positional vertigo (19) KELVIN (obstructive sleep apnea) (20) Peripheral neuropathy (21) Myelofibrosis (22) JAK2 V617F mutation (23) UTI (urinary tract infection) (24) Polycythemia vera (25) Pacemaker (26) Acute encephalopathy (27) Chronic anticoagulation (28) RLL pneumonia (29) Hematothorax (30) Thoracostomy tube in place (31) Collapse of left lung (32) Paroxysmal A-fib (33) Anemia Errol Estrada Apr 21, 2020 12:21
[2020-04-21] MEDS ORDERED: AMIODARONE HCL100 MG ORAL (14:31)
--- NOTE | 2020-04-21 14:37 | NUR ---
NURSE NOTES: DR Adrian called and patient to be discharge and patient to continue home medication.patient to also continue on Amiodarone as ordered.
--- NOTE | 2020-04-21 15:01 | NUR ---
NURSE NOTES: Discharge with discharge instructions .IV removed and ID hospital band removed.patient has personal belongings.patient accompany to private vehicle,patient family member will take patient home.patient son aware to call for appointment with DR Adrian.
--- NOTE | 2020-04-21 15:07 | Internal Med Progress Note ---
Subjective Physician Name Antonio Adrian Attending Physician Antonio Adrian MD Allergies: Coded Allergies: No Known Allergies (Unverified , 04/24/18) Subjective Awake, alert, responsive, denies any chest pain or shortness of breath, hemoglobin: 8.3, Feeling "Better". Objective Last Vital Signs Date Time Temp Pulse Resp B/P (MAP) Pulse Ox O2 Delivery O2 Flow Rate FiO2 04/21/20 12:00 98.1 67 20 111/51 (71) 94 04/21/20 10:30 Room Air Laboratory Tests Test 04/21/20 04:50 White Blood Count 4.1 K/UL (4.8-10.8) L Red Blood Count 2.79 M/UL (4.20-5.40) L Hemoglobin 8.3 G/DL (12.0-16.0) L Hematocrit 24.8 % (37.0-47.0) L Mean Corpuscular Volume 89 FL (80-99) Mean Corpuscular Hemoglobin 29.6 PG (27.0-31.0) Mean Corpuscular Hemoglobin Concent 33.3 G/DL (32.0-36.0) Red Cell Distribution Width 15.7 % (11.6-14.8) H Platelet Count 259 K/UL (150-450) Mean Platelet Volume 12.4 FL (6.5-10.1) H Neutrophils (%) (Auto) 57.4 % (45.0-75.0) Lymphocytes (%) (Auto) 23.9 % (20.0-45.0) Monocytes (%) (Auto) 11.7 % (1.0-10.0) H Eosinophils (%) (Auto) 0.1 % (0.0-3.0) Basophils (%) (Auto) 6.9 % (0.0-2.0) H Sodium Level 139 MMOL/L (136-145) Potassium Level 4.9 MMOL/L (3.5-5.1) Chloride Level 106 MMOL/L (98-107) Carbon Dioxide Level 30 MMOL/L (21-32) Anion Gap 3 mmol/L (5-15) L Blood Urea Nitrogen 31 mg/dL (7-18) H Creatinine 0.8 MG/DL (0.55-1.30) Estimat Glomerular Filtration Rate > 60 mL/min (>60) Glucose Level 85 MG/DL (74-106) Calcium Level 8.6 MG/DL (8.5-10.1) Intake and Output 04/20/20 04/21/20 19:00 07:00 Intake Total 720 ml 500 ml Balance 720 ml 500 ml Intake Oral 720 ml 500 ml # Voids 4 4 # Bowel Movements 2 2 Objective GENERAL: Awake and responsive, in no acute distress. chronic ill-appearing. HEAD AND NECK: Pupils are equal and reactive to light. Extraocular movements are intact. Neck was supple. No JVD. LUNGS: Good air entry. No wheezing or rales. HEART: S1, S2. Irregular. No murmur or gallops. Pacemaker in left-sided chest wall was noted. ABDOMEN: Soft, nondistended, nontender. Positive bowel sounds. EXTREMITIES: No cyanosis, clubbing, or edema. NEUROLOGIC: Cranial nerves II through XII grossly intact. Motor is 5/5 in upper extremities and 4/5 in bilateral Lower extremities. PSYCHIATRIC: Mood and affect is intact. RECTAL/GENITOURINARY: Refused and deferred. Assessment/Plan Assessment/Plan 1. Severe anemia, most likely secondary to myelofibrosis. 2. Chronic atrial fibrillation. 3. History of polycythemia vera. 4. History of JAK2 mutation. 5. Myelofibrosis with myelodysplastic syndrome. 6. Hypertension. 7. Coronary artery disease. 8. Dyslipidemia. 9. Congestive heart failure. 10. History of right hemothorax, status post video-assisted thoracotomy with exploration on July 02, 2019. 11. Sick sinus syndrome, status post pacemaker. 12. Failure to thrive. 13. Severe protein-calorie malnutrition. PLAN: In medical Unit. Dr. Freitas from Cardiology electrophysiology and Dr. Kaplan from the Hematology-Oncology. Transfuse REBC as needed. Follow up with the laboratory Code status: Full Code. DVT prophylaxis: Heparin subcutaneous. DC Home today. Antonio Adrian MD Apr 21, 2020 15:07
--- NOTE | 2020-04-22 13:19 | Discharge Summary ---
Discharge Summary Discharge Summary _ Date of admission: 04/13/2020 Date of discharge: 04/21/[address] Adrian History of Present Illness and Brief Hospital Course Ms. Pascal is an 79-year-old female with past medical history of atrial fibrillation, polycythemia vera, myelofibrosis, JAK2 mutation, myelodysplasia, CVA, obstructive sleep apnea, coronary artery disease, dyslipidemia, congestive heart disease, sick sinus syndrome, s/p pacemaker implant (06/2019), s/p VATS for history of hemithorax, who was sent to ED by her primary physician for evaluation of failure to thrive, anemia, and history of polycythemia vera. Patient was mainly complaining of weakness and not being able to eat well. Patient also complained of posterior neck pain. EKG showed sinus rhythm with nonspecific changes. Chest x-ray demonstrated previously implanted pacemaker, without infiltrates. Patient was noted to have markedly low hemoglobin level. Patient was transfused. She tested negative for COVID-19 via rapid test. Patient was admitted to the hospital for further management. Patient's H&H improved and remained stable after transfusion. She was noted to have relatively frequent transfusions, 6 units of PRBC in January 2020, and 4 units of PRBC in March 2020. Her anemia was likely secondary to myelofibrosis. Patient complained of posterior neck pain. Physical exam was fairly benign and there was no indication for acute intervention. Patient was medically stable for discharge and was discharged home on 04/21/2020. Consultants: Cardiology Dr. Freitas Surgery Dr. Estrdaa Hematology oncology Dr. Kaplan Discharge Condition Stable Discharge Activity Requires assistance Discharge Diet Regular Final diagnoses Hypertension s/p [employer] pacemaker in 2010, and generator change in 2019 Paroxysmal atrial fibrillation with RVR Polycythemia vera Myelofibrosis Severe anemia s/p VATS for history of hemithorax History of pulmonary hypertension Generalized weakness JAK2 mutation Myelodysplasia Cerebrovascular disease History of obstructive sleep apnea History of COPD History of coronary artery disease Congestive heart failure Sick sinus syndrome History of proteinuria Severe protein calorie malnutrition Abnormal LFTs History of pyelonephritis I have been assigned to dictate discharge summary for this account. I was not involved in the patient's management Michael Burnham Apr 22, 2020 13:19
== END 2020-04-21 15:00 | disposition home or self-care (01) | DRG 840 ==
LOC: EMR 13:52 → 4E 15:30 → EMR 18:00
PROC: 30233N1 Transfusion of Nonautologous Red Blood Cells into Peripheral Vein, Percutaneous Approach (ICD-10-PCS; principal; 2020-04-13)
DX: D45 Polycythemia vera (principal); E43 Unspecified severe protein-calorie malnutrition; Z68.1 Body mass index [BMI] 19.9 or less, adult; I48.20 Chronic atrial fibrillation, unspecified; D75.81 Myelofibrosis; R62.7 Adult failure to thrive; I11.0 Hypertensive heart disease with heart failure; I50.9 Heart failure, unspecified; Z95.0 Presence of cardiac pacemaker; I48.0 Paroxysmal atrial fibrillation; I25.10 Atherosclerotic heart disease of native coronary artery without angina pectoris; Z86.73 Personal history of transient ischemic attack (TIA), and cerebral infarction without residual deficits; E78.5 Hyperlipidemia, unspecified; G47.33 Obstructive sleep apnea (adult) (pediatric); R94.5 Abnormal results of liver function studies
CPT/HCPCS: 36415; 71045; 80048; 80053; 80162; 81003; 82550; 82728; 83605; 83615; 83690; 83735; 83880; 84100; 84443; 84484; 85007; 85025; 85610; 85730; 86140; 86850; 86870; 86900; 86901; 86904; 86920; 87040; 87086; 87181; 93005; 96360; 96361; 99291

== ENCOUNTER 2020-04-27 13:18 | Inpatient (IN) | payer MEDICARE ==
[~2020-04-27] VITALS: Ht 147.3 cm; Wt 45.4 kg
[~2020-04-27 13:18] MED LIST changes: +DIGOXIN125 MCG ORAL
[2020-04-27 14:09] VITALS: BP 116/79
--- NOTE | 2020-04-27 14:16 | Emergency Room Report ---
History of Present Illness General Chief Complaint: Generalized Weakness Source: Patient, Family Member Present Illness HPI Patient is sent in to have an evaluation of anemia. Apparently her powerhouse mechanic wants a bone marrow performed. Her hemoglobin in the office was 7.5 today. The patient denies pain at this time. The son says that she has been eating well, moving her bowels without difficulty and urinating without foul odor. Patient was recently admitted and discharged from the hospital for failure to thrive and profound anemia. Hypertension s/p [employer] [employer] pacemaker in 2010, and generator change in 2019 Paroxysmal atrial fibrillation with RVR Polycythemia vera Myelofibrosis Severe anemia s/p VATS for history of hemithorax History of pulmonary hypertension Generalized weakness JAK2 mutation Myelodysplasia Cerebrovascular disease History of obstructive sleep apnea History of COPD History of coronary artery disease Congestive heart failure Sick sinus syndrome History of proteinuria Severe protein calorie malnutrition Abnormal LFTs History of pyelonephritis Allergies: Coded Allergies: No Known Allergies (Unverified , 04/24/18) COVID-19 Screening Contact w/high risk pt: No Recent Travel to affected area: No Experienced COVID-19 symptoms?: No COVID-19 Testing performed CAD OPERATOR: No COVID-19 Screening: Negative COVID-19 Patient History Past Medical History: see triage record, old chart reviewed Past Surgical History: pacemaker Social History: Denies: smoking, alcohol use Social History Narrative From home, son is a drama critic Reviewed Nursing Documentation: PMH: Agreed; PSxH: Agreed Nursing Documentation-PMH Hx Cardiac Problems: No Hx Hypertension: Yes Hx Pacemaker: No Hx Asthma: No Hx COPD: No Hx Diabetes: No Hx Cancer: Yes Hx Gastrointestinal Problems: Yes Hx Dialysis: No History Of Psychiatric Problem: No Hx Neurological Problems: No Hx Cerebrovascular Accident: No Hx Transient Ischemic Attacks: Yes Hx Seizures: No Hx Headaches: Yes Hx Numbness: Yes Hx Weakness: Yes Review of Systems All Other Systems: negative except mentioned in HPI Physical Exam Vital Signs Date Time Temp Pulse Resp B/P (MAP) Pulse Ox O2 Delivery O2 Flow Rate FiO2 04/27/20 14:04 98.8 82 18 116/79 (91) 100 Room Air Sp02 EP Interpretation: reviewed, normal General Appearance: no apparent distress, alert, non-toxic, thin, other - Frail, Chronically Ill Head: normocephalic Eyes: bilateral eye normal inspection - Slight pallor, bilateral eye PERRL, bilateral eye EOMI ENT: moist mucus membranes Neck: full range of motion, supple Respiratory: chest non-tender, lungs clear, normal breath sounds Cardiovascular #1: regular rate, rhythm, no edema Cardiovascular #2: 2+ radial (R) Gastrointestinal: normal inspection, normal bowel sounds, non tender, no mass, non-distended Genitourinary: no CVA tenderness Musculoskeletal: back normal, normal range of motion, no calf tenderness, moves extm spontaneously Neurologic: alert, oriented, DTRs symmetric, sensory intact, motor weakness - Diffuse slight weakness, speech normal Psychiatric: mood/affect normal - With occasional bouts of anxiety Skin: warm/dry - There is occasional bouts of anxiety, pallor - Minimal Medical Decision Making Diagnostic Impression: Primary Impression: Anemia Qualified Codes: D64.9 - Anemia, unspecified Additional Impression: Protein-calorie malnutrition, severe ER Course Patient is sent for evaluation of anemia with a rule out of leukemia. Her h emoglobin today was 7.5 in the office. She needs to be evaluated with EKG and labs. The patient has no complaints at this time however based on previous work-up of bone marrow is indicated. This cannot be done from the emergency department. EKG atrial paced rhythm with prolonged NM interval. Nonspecific ST-T wave changes. Labs with hemoglobin of 7.3. White count 4.7. Platelet count normal however giant platelets present. Metamyelocytes present also. CMP remarkable for elevated BUN. Normal creatinine. Urinalysis clear. Patient received IV hydration in the emergency department. Due to the abnormal peripheral smear patient admitted to the hospital for bone marrow. Patient clinically stable but hematologic studies revealed the potential for serious illness. No emergent transfusion needed at this time. Laboratory Tests Test 04/27/20 14:34 04/27/20 15:28 White Blood Count 4.7 K/UL (4.8-10.8) L Red Blood Count 2.52 M/UL (4.20-5.40) L Hemoglobin 7.3 G/DL (12.0-16.0) L Hematocrit 22.6 % (37.0-47.0) L Mean Corpuscular Volume 90 FL (80-99) Mean Corpuscular Hemoglobin 29.0 PG (27.0-31.0) Mean Corpuscular Hemoglobin Concent 32.3 G/DL (32.0-36.0) Red Cell Distribution Width 15.6 % (11.6-14.8) H Platelet Count 420 K/UL (150-450) Mean Platelet Volume 10.9 FL (6.5-10.1) H Neutrophils (%) (Auto) % (45.0-75.0) Lymphocytes (%) (Auto) % (20.0-45.0) Monocytes (%) (Auto) % (1.0-10.0) Eosinophils (%) (Auto) % (0.0-3.0) Basophils (%) (Auto) % (0.0-2.0) Differential Total Cells Counted 100 Neutrophils % (Manual) 64 % (45-75) Lymphocytes % (Manual) 22 % (20-45) Monocytes % (Manual) 6 % (1-10) Eosinophils % (Manual) 0 % (0-3) Basophils % (Manual) 5 % (0-2) H Metamyelocytes % 2 % (0-0) H Band Neutrophils 1 % (0-8) Platelet Estimate Adequate Platelet Morphology Giant Platelets 1+ Polychromasia 1+ Anisocytosis 1+ Prothrombin Time 12.0 SEC (9.30-11.50) H Prothrombin Time INR 1.1 (0.9-1.1) Activated Partial Thromboplast Time 27 SEC (23-33) Sodium Level 138 MMOL/L (136-145) Potassium Level 4.7 MMOL/L (3.5-5.1) Chloride Level 104 MMOL/L (98-107) Carbon Dioxide Level 27 MMOL/L (21-32) Anion Gap 7 mmol/L (5-15) Blood Urea Nitrogen 34 mg/dL (7-18) H Creatinine 0.8 MG/DL (0.55-1.30) Estimated Glomerular Filtration Rate > 60 mL/min (>60) Glucose Level 159 MG/DL (74-106) H Calcium Level 8.8 MG/DL (8.5-10.1) Total Bilirubin 0.5 MG/DL (0.2-1.0) Aspartate Amino Transferase (AST) 17 U/L (15-37) Alanine Aminotransferase (ALT) 21 U/L (12-78) Alkaline Phosphatase 117 U/L (46-116) H Total Creatine Kinase 12 U/L (26-308) L Troponin I 0.002 ng/mL (0.000-0.056) Pro-B-Type Natriuretic Peptide 1179 pg/mL (0-125) H Total Protein 6.6 G/DL (6.4-8.2) Albumin 2.8 G/DL (3.4-5.0) L Globulin 3.8 g/dL Albumin/Globulin Ratio 0.7 (1.0-2.7) L Urine Color Yellow Urine Appearance Clear Urine pH 6 (4.5-8.0) Urine Specific [place] 1.005 (1.005-1.035) Urine Protein 2+ (NEGATIVE) H Urine Glucose (UA) Negative (NEGATIVE) Urine Ketones Negative (NEGATIVE) Urine Blood Negative (NEGATIVE) Urine Nitrite Negative (NEGATIVE) Urine Bilirubin Negative (NEGATIVE) Urine Urobilinogen Normal MG/DL (0.0-1.0) Urine Leukocyte Esterase 1+ (NEGATIVE) H Urine RBC 0-2 /HPF (0 - 2) Urine WBC 0-2 /HPF (0 - 2) Urine Squamous Epithelial Cells Occasional /LPF Urine Bacteria None /HPF (NONE) EKG Diagnostic Results Rate: normal Rhythm: other - Paced ST Segments: no acute changes Rhythm Strip Diag. Results EP Interpretation: yes Rhythm: no PVC's, no ectopy, other - Atrial paced Last Vital Signs Date Time Temp Pulse Resp B/P (MAP) Pulse Ox O2 Delivery O2 Flow Rate FiO2 04/27/20 14:04 98.8 82 18 116/79 (91) 100 Room Air Disposition: ADMITTED INPATIENT Condition: Serious Petey Hines MD Apr 27, 2020 14:16
[2020-04-27 14:50] LABS: HEMATOCRIT 22.6 % (37.0-47.0); HEMOGLOBIN 7.3 G/DL (12.0-16.0); MEAN CORPUSCULAR VOLUME 90 FL (80-99); PLATELET COUNT 420 K/UL (150-450); RED BLOOD COUNT 2.52 M/UL (4.20-5.40); RED CELL DISTRIBUTION WIDTH 15.6 % (11.6-14.8); WHITE BLOOD COUNT 4.7 K/UL (4.8-10.8)
[2020-04-27 14:56] LABS: INR 1.1 (0.9-1.1)
[2020-04-27 15:35] LABS: ANION GAP 7 mmol/L (5-15); BLOOD UREA NITROGEN 34 mg/dL (7-18); CALCIUM 8.8 MG/DL (8.5-10.1); CARBON DIOXIDE 27 MMOL/L (21-32); CHLORIDE 104 MMOL/L (98-107); CREATININE 0.8 MG/DL (0.55-1.30); POTASSIUM 4.7 MMOL/L (3.5-5.1); SODIUM 138 MMOL/L (136-145)
[2020-04-27 15:46] LABS: ALANINE AMINOTRANSFERASE 21 U/L (12-78); ALBUMIN 2.8 G/DL (3.4-5.0); ALBUMIN/GLOBULIN RATIO 0.7 (1.0-2.7); ALKALINE PHOSPHATASE 117 U/L (46-116); ASPARTATE AMINO TRANSFERASE 17 U/L (15-37); BILIRUBIN,TOTAL 0.5 MG/DL (0.2-1.0); CREATINE KINASE 12 U/L (26-308)
[2020-04-27 16:01] LABS: APPEARANCE,URINE CLEAR; BILIRUBIN, URINE NEGATIVE (NEGATIVE); GLUCOSE, URINE (UA) NEGATIVE (NEGATIVE); KETONES,URINE NEGATIVE (NEGATIVE); LEUKOCYTE ESTERASE ,URINE 1+ (NEGATIVE); NITRITE,URINE NEGATIVE (NEGATIVE); PH,URINE 6 (4.5-8.0); PROTEIN,URINE 2+ (NEGATIVE); UROBILINOGEN,URINE NORMAL MG/DL (0.0-1.0)
[2020-04-27 16:05] LABS: COLOR,URINE YELLOW
[2020-04-27 18:07] VITALS: BP 113/51
[2020-04-27 20:20] VITALS: BP 105/57
[2020-04-27] MEDS ORDERED: HYDROcodone/Acetamin 5/325 tab ORAL PRN (21:45)
[2020-04-28] VITALS (10 sets, daily range): BP systolic 95–126; BP diastolic 46–64
[2020-04-28 05:15] LABS: HEMATOCRIT 22.3 % (37.0-47.0); HEMOGLOBIN 7.3 G/DL (12.0-16.0); MEAN CORPUSCULAR VOLUME 90 FL (80-99); PLATELET COUNT 353 K/UL (150-450); RED BLOOD COUNT 2.48 M/UL (4.20-5.40); RED CELL DISTRIBUTION WIDTH 15.4 % (11.6-14.8); WHITE BLOOD COUNT 3.6 K/UL (4.8-10.8)
[2020-04-28 05:45] LABS: ALANINE AMINOTRANSFERASE 15 U/L (12-78); ALBUMIN 2.5 G/DL (3.4-5.0); ALBUMIN/GLOBULIN RATIO 0.7 (1.0-2.7); ALKALINE PHOSPHATASE 108 U/L (46-116); ANION GAP 6 mmol/L (5-15); ASPARTATE AMINO TRANSFERASE 14 U/L (15-37); BILIRUBIN,TOTAL 0.5 MG/DL (0.2-1.0); BLOOD UREA NITROGEN 29 mg/dL (7-18); CALCIUM 8.7 MG/DL (8.5-10.1); CARBON DIOXIDE 27 MMOL/L (21-32); CHLORIDE 108 MMOL/L (98-107); CREATININE 0.7 MG/DL (0.55-1.30); PHOSPHORUS 3.1 MG/DL (2.5-4.9); POTASSIUM 4.6 MMOL/L (3.5-5.1); SODIUM 141 MMOL/L (136-145)
[2020-04-28] MEDS: Levothyroxine 25mcg tab ORAL SCH (05:49)
--- NOTE | 2020-04-28 06:25 | Consultation ---
History of Present Illness General Chief Complaint: Generalized Weakness Present Illness Allergies: Coded Allergies: No Known Allergies (Unverified , 04/24/18) Medication History Scheduled Amiodarone Hcl (Amiodarone Hcl), 200 MG ORAL DAILY, (Reported) Digoxin* (Digoxin*), 125 MCG ORAL DAILY, (Reported) Levothyroxine Sodium* (Synthroid*), 25 MCG ORAL DAILY, (Reported) Omeprazole (Omeprazole), 20 MG ORAL DAILY, (Reported) Patient History Healthcare decision maker Resuscitation status Advanced Directive on File Physical Exam Last 24 Hour Vital Signs Date Time Temp Pulse Resp B/P (MAP) Pulse Ox O2 Delivery O2 Flow Rate FiO2 04/28/20 04:00 97.8 64 18 115/63 (80) 97 04/28/20 00:00 97.9 61 18 111/64 (80) 98 04/27/20 21:00 Room Air 04/27/20 21:00 Room Air 04/27/20 20:20 98.1 62 18 105/57 (73) 99 04/27/20 20:00 98.2 71 18 112/60 96 Room Air 04/27/20 18:07 61 18 113/51 100 Room Air 04/27/20 14:09 98.8 18 116/79 100 Room Air 04/27/20 14:04 98.8 82 18 116/79 (91) 100 Room Air Intake and Output 04/27/20 04/28/20 19:00 07:00 Intake Total 1000 ml 120 ml Balance 1000 ml 120 ml Intake Oral 120 ml IV Total 1000 ml # Voids 6 Laboratory Tests Test 04/27/20 14:34 04/27/20 15:28 04/28/20 04:50 White Blood Count 4.7 K/UL (4.8-10.8) L 3.6 K/UL (4.8-10.8) L Red Blood Count 2.52 M/UL (4.20-5.40) L 2.48 M/UL (4.20-5.40) L Hemoglobin 7.3 G/DL (12.0-16.0) L 7.3 G/DL (12.0-16.0) L Hematocrit 22.6 % (37.0-47.0) L 22.3 % (37.0-47.0) L Mean Corpuscular Volume 90 FL (80-99) 90 FL (80-99) Mean Corpuscular Hemoglobin 29.0 PG (27.0-31.0) 29.4 PG (27.0-31.0) Mean Corpuscular Hemoglobin Concent 32.3 G/DL (32.0-36.0) 32.7 G/DL (32.0-36.0) Red Cell Distribution Width 15.6 % (11.6-14.8) H 15.4 % (11.6-14.8) H Platelet Count 420 K/UL (150-450) 353 K/UL (150-450) Mean Platelet Volume 10.9 FL (6.5-10.1) H 11.1 FL (6.5-10.1) H Neutrophils (%) (Auto) % (45.0-75.0) % (45.0-75.0) Lymphocytes (%) (Auto) % (20.0-45.0) % (20.0-45.0) Monocytes (%) (Auto) % (1.0-10.0) % (1.0-10.0) Eosinophils (%) (Auto) % (0.0-3.0) % (0.0-3.0) Basophils (%) (Auto) % (0.0-2.0) % (0.0-2.0) Differential Total Cells Counted 100 Neutrophils % (Manual) 64 % (45-75) Pending Lymphocytes % (Manual) 22 % (20-45) Pending Monocytes % (Manual) 6 % (1-10) Eosinophils % (Manual) 0 % (0-3) Basophils % (Manual) 5 % (0-2) H Metamyelocytes % 2 % (0-0) H Band Neutrophils 1 % (0-8) Platelet Estimate Adequate Pending Platelet Morphology Pending Giant Platelets 1+ Polychromasia 1+ Anisocytosis 1+ Prothrombin Time 12.0 SEC (9.30-11.50) H Prothromb Time International Ratio 1.1 (0.9-1.1) Activated Partial Thromboplast Time 27 SEC (23-33) Sodium Level 138 MMOL/L (136-145) 141 MMOL/L (136-145) Potassium Level 4.7 MMOL/L (3.5-5.1) 4.6 MMOL/L (3.5-5.1) Chloride Level 104 MMOL/L (98-107) 108 MMOL/L (98-107) H Carbon Dioxide Level 27 MMOL/L (21-32) 27 MMOL/L (21-32) Anion Gap 7 mmol/L (5-15) 6 mmol/L (5-15) Blood Urea Nitrogen 34 mg/dL (7-18) H 29 mg/dL (7-18) H Creatinine 0.8 MG/DL (0.55-1.30) 0.7 MG/DL (0.55-1.30) Estimat Glomerular Filtration Rate > 60 mL/min (>60) > 60 mL/min (>60) Glucose Level 159 MG/DL (74-106) H 87 MG/DL (74-106) Calcium Level 8.8 MG/DL (8.5-10.1) 8.7 MG/DL (8.5-10.1) Total Bilirubin 0.5 MG/DL (0.2-1.0) 0.5 MG/DL (0.2-1.0) Aspartate Amino Transf (AST/SGOT) 17 U/L (15-37) 14 U/L (15-37) L Alanine Aminotransferase (ALT/SGPT) 21 U/L (12-78) 15 U/L (12-78) Alkaline Phosphatase 117 U/L (46-116) H 108 U/L (46-116) Total Creatine Kinase 12 U/L (26-308) L Troponin I 0.002 ng/mL (0.000-0.056) Pro-B-Type Natriuretic Peptide 1179 pg/mL (0-125) H 1300 pg/mL (0-125) H Total Protein 6.6 G/DL (6.4-8.2) 6.1 G/DL (6.4-8.2) L Albumin 2.8 G/DL (3.4-5.0) L 2.5 G/DL (3.4-5.0) L Globulin 3.8 g/dL 3.6 g/dL Albumin/Globulin Ratio 0.7 (1.0-2.7) L 0.7 (1.0-2.7) L Urine Color Yellow Urine Appearance Clear Urine pH 6 (4.5-8.0) Urine Specific [employer] 1.005 (1.005-1.035) Urine Protein 2+ (NEGATIVE) H Urine Glucose (UA) Negative (NEGATIVE) Urine Ketones Negative (NEGATIVE) Urine Blood Negative (NEGATIVE) Urine Nitrite Negative (NEGATIVE) Urine Bilirubin Negative (NEGATIVE) Urine Urobilinogen Normal MG/DL (0.0-1.0) Urine Leukocyte Esterase 1+ (NEGATIVE) H Urine RBC 0-2 /HPF (0 - 2) Urine WBC 0-2 /HPF (0 - 2) Urine Squamous Epithelial Cells Occasional /LPF Urine Bacteria None /HPF (NONE) Phosphorus Level 3.1 MG/DL (2.5-4.9) Magnesium Level 2.3 MG/DL (1.8-2.4) Height (Feet): 4 Height (Inches): 10.00 Weight (Pounds): 100 Medications Current Medications Medications (Trade) Dose Ordered Sig/Escobar Route PRN Reason Start Time Stop Time Status Last Admin Dose Admin Acetaminophen (Tylenol) 650 mg Q6H PRN ORAL Temp >100.5 04/27/20 21:45 05/27/20 21:44 Acetaminophen/ Hydrocodone Bitart ([place] 5/325) 1 tab Q6H PRN ORAL For Pain 04/27/20 21:45 05/04/20 21:44 Amiodarone HCl (Cordarone) 200 mg DAILY ORAL 04/28/20 09:00 07/27/20 08:59 Digoxin (Lanoxin) 0.125 mg DAILY ORAL 04/28/20 09:00 07/27/20 08:59 Heparin Sodium (Porcine) (Heparin 5000 units/ml) 5,000 units EVERY 12 HOURS SUBQ 04/28/20 09:00 06/12/20 08:59 Levothyroxine Sodium (Synthroid) 25 mcg DAILY@0630 ORAL 04/28/20 06:30 05/28/20 06:29 04/28/20 05:49 Pantoprazole (Protonix) 40 mg DAILY ORAL 04/28/20 09:00 05/28/20 08:59 Assessment/Plan Assessment/Plan: Hematology Consultation RfC: Anemia DOS 04/28/2020 REQ MD: Antonio Adrian HPI 79y old female well known to me, sent in. She has failure to thrive, anemia and history of polycythemia vera. The patient mainly complains of weakness and not being able to eat well. She is also complaining about pain in her neck. She has not been taking any medication for this. She denies fevers or chills. Patient denies exposure to Covid positive contacts. No sore throat, chest pain, palpitations, nausea, vomiting, diarrhea, dysuria, abdominal pain, rashes, visual changes, dizziness, headache. Son states patient responds poorly to hospitalization. Not eat well and is discharged "weaker". Also usually placed on antidepressants which he feels makes her worse. Patient was admitted March 14 of this year. These are her discharge diagnoses: Hypertension s/p [employer] [employer] pacemaker in 2010, and generator change in 2019 Paroxysmal atrial fibrillation with RVR Polycythemia vera Myelofibrosis Severe anemia s/p VATS for history of hemithorax History of pulmonary hypertension Generalized weakness JAK2 mutation Myelodysplasia Cerebrovascular disease Obstructive sleep apnea COPD Coronary artery disease Congestive heart failure Sick sinus syndrome Proteinuria Severe protein calorie malnutrition Abnormal LFTs History of pyelonephritis Allergies: Coded Allergies: No Known Allergies (Unverified , 04/24/18) COVID-19 Screening Contact w/high risk pt: No Recent Travel to affected area: No Experienced COVID-19 symptoms?: No Patient History Past Medical History: see triage record, old chart reviewed Past Surgical History: hysterectomy, pacemaker, other - Pneumothorax with chest tube Social History: Denies: smoking, alcohol use, drug use Social History Narrative born in [place] Reviewed Nursing Documentation: PMH: Agreed; PSxH: Agreed (Petey Hines MD) Nursing Documentation-PMH Hx Cardiac Problems: Yes - pacemaker Hx Hypertension: No Hx Pacemaker: Yes Hx Asthma: No Hx COPD: No Hx Diabetes: No Hx Cancer: No Hx Gastrointestinal Problems: No Hx Dialysis: No Hx Neurological Problems: No Hx Cerebrovascular Accident: No Hx Transient Ischemic Attacks: Yes Hx Seizures: No Hx Headaches: Yes Hx Numbness: Yes Hx Weakness: Yes - Generalized weakness Review of Systems All Other Systems: negative except mentioned in HPI Physical Exam Vitals: noted General: thin, other - frail, Chronically Ill Eyes: bilateral eye PERRL, bilateral eye EOMI ENT: moist mucus membranes - slightly dry Neck: full range of motion, no bony tend, other Respiratory: chest non-tender- Pacemaker left Cardiovascular: regular rate, rhythm Gastrointestinal: normal bowel sounds Genitourinary: no CVA tenderness Musculoskeletal: back normal, no calf tenderness, other - kyphosis Neurologic: alert, professional development manager III-XII nml as tested Psychiatric: mood/affect normal Skin: warm/dry - cool feet, pallor Labs: reviewed Imaging: reviewed ASSESSMENT AND RECOMMENDATIONS # Polycythemia vera, JAK2+++. In prior was on hydroxyurea in the pat, at this time, continues to be pancytopenic, admitted for further eval --> was in the past jak2+++ --> imaging abd us ordered - Splenomegaly. 3 cm cyst within the spleen probably complex with at least one or 2 septations. Trace right pleural effusion. Gallbladder sludge versus stones. --> hold off hydrea at this time --> will dw her bone marrow biopsy # Pancytopenia now with initially with anemia of chronic disease due to underlying chronic medical issues, multifactorial, also due to polycythemia vera, hgb 5 on admission --> Anemia workup has been ordered, rule out gi bleed - results noted and cw acd --> No evidence of hemolysis is noted, peripheral smear has been reviewed. --> Hgb goal >7. Transfuse prn --> low threshold for gi evaluation in case has occult --> Hgb trend:4.8-->5.9-->7.7-->7.6->9->7.3 --> wbc 3.8-->4->3.6-->4 --> Patient received an EGD prior admission, by GI at that time that showed gastritis. No varices # Vertigo. --> per neuro as needed --> recs have been noted # Atrial fibrillation with rapid ventricular rate. --> Serial troponin levels will be performeD prior and neg --> per cards # Hypertension. Cont on clonidine # Obstructive sleep apnea. # Coronary artery disease. # Hypercholesteremia. # Congestive heart failure. # Dvt ppx heparin sq The time the the note is entered does not reflect the time the patient was examined. I greatly appreciate the consultation. Best Kaplan MD Apr 28, 2020 06:25
[2020-04-28] MEDS: Amiodarone 200mg tab ORAL SCH (08:03)
[2020-04-28] MEDS: Digoxin 0.125mg tab ORAL SCH (08:03)
[2020-04-28] MEDS: Heparin 5000 units/ml inj SUBQ SCH ×2 (08:08→20:24)
[2020-04-28] MEDS ORDERED: LORazepam Inj 2mg/ml 1ml IV PRN (09:15)
[2020-04-28] MEDS ORDERED: Morphine Sulfate 2mg/ml Inj IVP PRN (09:15)
[2020-04-28] MEDS ORDERED: Lidocaine 2% MPF 5ml Vial INJ PRN (10:30)
--- NOTE | 2020-04-28 12:57 | PATHOLOGY BONE BARROW ---
Bone Marrow Aspirate & Biopsy . PROCEDURE: Bone Marrow Aspirate and Biopsy INDICATION: Anemia, Polycytemia vera PROCEDURE FLIGHT TEST DATA ACQUISITION TECHNICIAN: [place] Hope M.D. CONSENT: Consent was previously obtained from the patient. The risks and benefits were re-explained. The patient agreed to undergo the procedure. A TIMEOUT WAS EXECUTED: Yes PROCEDURE SUMMARY: The patient was laid in the side position. The left posterior iliac crest was prepped and draped in a sterile fashion. The crest of the posterior iliac was located, and the skin as well as surface of the bone was anesthetized with 2 % lidocaine. An aspirating needle was introduced, the bone marrow aspirate was obtained without any difficulty. This was withdrawn the coring needle was advanced into the bone cavity. A bone marrow biopsy was obtained without any complications. ESTIMATED BLOOD LOSS: Negligible REPORTS TO FOLLOW [place] HOPE Apr 28, 2020 12:57
--- NOTE | 2020-04-28 14:26 | History & Physical ---
History and Physical History & Physicial [facility] PSH: Hypertension s/p [place] [employer] pacemaker in 2010, and generator change in 2019 Paroxysmal atrial fibrillation with RVR Polycythemia vera Myelofibrosis Severe anemia s/p VATS for history of hemithorax History of pulmonary hypertension Generalized weakness JAK2 mutation Myelodysplasia Cerebrovascular disease History of obstructive sleep apnea History of COPD History of coronary artery disease Congestive heart failure Sick sinus syndrome History of proteinuria Severe protein calorie malnutrition Abnormal LFTs History of pyelonephritis Antonio Adrian MD Apr 28, 2020 14:26
--- NOTE | 2020-04-28 14:29 | Consultation ---
Consult Note Consult Note Asked to evaluate the patient at the request of Dr. Adrian Patient known to me from her previous admission here at [facility] Emergency room note: Patient is sent in to have an evaluation of anemia. Apparently her emergency management program specialist wants a bone marrow performed. Her hemoglobin in the office was 7.5 today. The patient denies pain at this time. The son says that she has been eating well, moving her bowels without difficulty and urinating without foul odor. Patient was recently admitted and discharged from the hospital for failure to thrive and profound anemia. Hypertension s/p [employer] pacemaker in 2010, and generator change in 2019 Paroxysmal atrial fibrillation with RVR Polycythemia vera Myelofibrosis Severe anemia s/p VATS for history of hemithorax History of pulmonary hypertension Generalized weakness JAK2 mutation Myelodysplasia Cerebrovascular disease History of obstructive sleep apnea History of COPD History of coronary artery disease Congestive heart failure Sick sinus syndrome History of proteinuria Severe protein calorie malnutrition Abnormal LFTs History of pyelonephritis Allergies: No Known Allergies (Unverified , 04/24/18) COVID-19 Screening Contact w/high risk pt: No Recent Travel to affected area: No Experienced COVID-19 symptoms?: No COVID-19 Testing performed INDUSTRIAL ENGINEERING: No COVID-19 Screening: Negative COVID-19 Past Surgical History: pacemaker Hx Hypertension: Yes Hx Cancer: Yes Hx Gastrointestinal Problems: Yes Hx Transient Ischemic Attacks: Yes Hx Headaches: Yes Hx Numbness: Yes Hx Weakness: Yes Vital Signs Date Time Temp Pulse Resp B/P (MAP) Pulse Ox O2 Delivery O2 Flow Rate FiO2 04/27/20 14:04 98.8 82 18 116/79 (91) 100 Room Air PHYSICAL EXAMINATION: VITAL SIGNS: On admission from the emergency department, temperature 98.8, pulse of 82, respirations 18, and blood pressure 116/79. GENERAL: The patient is awake and responsive, chronically ill-appearing and malnutrition. HEAD AND NECK: Pupils are equal and reactive to light. Extraocular movements are intact. Neck was supple. No JVD. LUNGS: Good air entry. No wheezing or rhonchi. Decreased air in bases. HEART: S1, S2. Irregular. No murmur or gallop. Pacemaker in left-sided chest wall was noted. ABDOMEN: Soft, nondistended, nontender. Positive bowel sounds. EXTREMITIES: No cyanosis, clubbing, or edema. NEUROLOGIC: Cranial nerves II to XII grossly intact. The patient is moving all extremities. Gait was not assessed due to the patient's status. Motor is 5/5 in upper extremity and 4/5 in the lower extremity. LABORATORY DATA: On admission from the emergency department, WBC of 4.7, hemoglobin 7.3, hematocrit 22, platelets 420,000. PT 12, INR 1.1, PTT of 27. Sodium 138, potassium 4.7, chloride 104, bicarb 27, BUN 34, creatinine 0.8, and glucose is 159. Alkaline phosphatase is 117. First troponin is 0.02. The patient's proBNP of 1179. Urinalysis, +2 protein, +1 leukocytes, otherwise negative. Recent chest x-ray from April 13, 2020, no acute process. . Assessment/Plan Symptomatic anemia Hypotension, periodic Proteinuria, hypoalbuminemia Encephalopathy Transfusion per hematology Keep the blood pressure and heart rate in check 24-hour urine collection for total protein Per orders Sudhakar Griggs MD Apr 28, 2020 14:29
--- NOTE | 2020-04-28 16:47 | Cardiac Electrophysiology PN ---
Assessment/Plan Assessment/Plan 1. Hypertension. DC Lopressor 12.5 po bid as BP 90s 2. Status post [employer] pacer in 2010 and gen change by me in 2019. 3. Paroxysmal atrial fibrillation with rapid ventricular response. On digoxin and amiodarone. Off Metoprolol for Low BP Off anticoagulation for recurrent bleeding and profound anemia. 4. Profound anemia with hemoglobin of 3 to 4. S/P 6 units of PRBC in 01/2020 S/P 4 units of PRBC again in 04/03 S/P PRBC on 04/14/20. 5. History of hemothorax, status post VATS. 6. Pulmonary hypertension. 7. Myelofibrosis.S/P BM Biopsy today Fu per compliance nurse RILEY RN Subjective Subjective Patient is sent in to have an evaluation of anemia as her compliance nurse wants a bone marrow performed. Her hemoglobin in the office was 7.5 today. The patient denies pain at this time. Objective Last 24 Hour Vital Signs Date Time Temp Pulse Resp B/P (MAP) Pulse Ox O2 Delivery O2 Flow Rate FiO2 04/28/20 14:00 60 19 119/56 (77) 95 04/28/20 13:10 60 19 110/59 (76) 95 04/28/20 12:45 67 18 126/63 (84) 97 04/28/20 12:30 65 18 114/58 (76) 97 04/28/20 11:47 98.1 67 19 101/61 (74) 97 04/28/20 08:21 97.4 64 18 97/56 (70) 97 04/28/20 08:05 Room Air 04/28/20 08:03 64 04/28/20 04:00 97.8 64 18 115/63 (80) 97 04/28/20 00:00 97.9 61 18 111/64 (80) 98 04/27/20 21:00 Room Air 04/27/20 21:00 Room Air 04/27/20 20:20 98.1 62 18 105/57 (73) 99 04/27/20 20:00 98.2 71 18 112/60 96 Room Air 04/27/20 18:07 61 18 113/51 100 Room Air Intake and Output 04/27/20 04/28/20 19:00 07:00 Intake Total 1000 ml 120 ml Balance 1000 ml 120 ml Intake Oral 120 ml IV Total 1000 ml # Voids 6 Laboratory Tests Test 04/28/20 04:50 White Blood Count 3.6 K/UL (4.8-10.8) L Red Blood Count 2.48 M/UL (4.20-5.40) L Hemoglobin 7.3 G/DL (12.0-16.0) L Hematocrit 22.3 % (37.0-47.0) L Mean Corpuscular Volume 90 FL (80-99) Mean Corpuscular Hemoglobin 29.4 PG (27.0-31.0) Mean Corpuscular Hemoglobin Concent 32.7 G/DL (32.0-36.0) Red Cell Distribution Width 15.4 % (11.6-14.8) H Platelet Count 353 K/UL (150-450) Mean Platelet Volume 11.1 FL (6.5-10.1) H Neutrophils (%) (Auto) % (45.0-75.0) Lymphocytes (%) (Auto) % (20.0-45.0) Monocytes (%) (Auto) % (1.0-10.0) Eosinophils (%) (Auto) % (0.0-3.0) Basophils (%) (Auto) % (0.0-2.0) Differential Total Cells Counted 100 Neutrophils % (Manual) 64 % (45-75) Lymphocytes % (Manual) 29 % (20-45) Monocytes % (Manual) 4 % (1-10) Eosinophils % (Manual) 0 % (0-3) Basophils % (Manual) 3 % (0-2) H Band Neutrophils 0 % (0-8) Platelet Estimate Adequate Platelet Morphology Giant Platelets Occasional Hypochromasia 1+ Anisocytosis 1+ Sodium Level 141 MMOL/L (136-145) Potassium Level 4.6 MMOL/L (3.5-5.1) Chloride Level 108 MMOL/L (98-107) H Carbon Dioxide Level 27 MMOL/L (21-32) Anion Gap 6 mmol/L (5-15) Blood Urea Nitrogen 29 mg/dL (7-18) H Creatinine 0.7 MG/DL (0.55-1.30) Estimat Glomerular Filtration Rate > 60 mL/min (>60) Glucose Level 87 MG/DL (74-106) Calcium Level 8.7 MG/DL (8.5-10.1) Phosphorus Level 3.1 MG/DL (2.5-4.9) Magnesium Level 2.3 MG/DL (1.8-2.4) Total Bilirubin 0.5 MG/DL (0.2-1.0) Aspartate Amino Transf (AST/SGOT) 14 U/L (15-37) L Alanine Aminotransferase (ALT/SGPT) 15 U/L (12-78) Alkaline Phosphatase 108 U/L (46-116) Pro-B-Type Natriuretic Peptide 1300 pg/mL (0-125) H Total Protein 6.1 G/DL (6.4-8.2) L Albumin 2.5 G/DL (3.4-5.0) L Globulin 3.6 g/dL Albumin/Globulin Ratio 0.7 (1.0-2.7) L Objective HEAD AND NECK: no JVD. LUNGS: Clear. CARDIOVASCULAR: Regular S1 and S2 with no gallop. Pacemaker in left subclavian. ABDOMEN: Soft. EXTREMITIES: No pitting edema. River Freitas MD Apr 28, 2020 16:47
[2020-04-29] VITALS (7 sets, daily range): BP systolic 101–121; BP diastolic 53–77
[2020-04-29] MEDS: Levothyroxine 25mcg tab ORAL SCH (05:33)
--- NOTE | 2020-04-29 07:44 | History and Physical Report ---
DATE OF ADMISSION: 04/27/2020 CHIEF COMPLAINT: Severe anemia. HISTORY OF PRESENT ILLNESS: This is an 79-year-old very unfortunate female with past medical history significant for paroxysmal atrial fibrillation with rapid ventricular rate, history of polycythemia vera, CVA, TIA, obstructive sleep apnea, coronary artery disease, dyslipidemia, congestive heart failure, right hemothorax in June 2019, status post of video-assisted thoracotomy and exploration on July 02, 2019, history of sick sinus syndrome status post pacemaker placement in 2010 with the generator change in [address] Freitas, history of JAK2 mutation, myelofibrosis, and myelodysplasia, who presented to the hospital as per request by Dr. Kaplan after she was noted to be severely anemic. The patient's hemoglobin was noted to be 7.[address] Kaplan's office and subsequently the patient was admitted to the hospital for further evaluation and possible blood transfusion and bone marrow biopsy. The patient denies any fever, chills, nausea, or vomiting, however, complained about poor appetite and decreased oral intake. PAST MEDICAL HISTORY/PAST SURGICAL HISTORY: As above, history of paroxysmal atrial fibrillation with rapid ventricular rate, polycythemia vera, JAK2 mutation, CVA, prior history of TIA, obstructive sleep apnea, coronary artery disease, dyslipidemia, congestive heart failure, right hemothorax in June 2019 status post of video-assisted thoracotomy exploration on July 02, 2019, sick sinus syndrome status post pacemaker in 2010 with the generator change in [address] Freitas, total abdominal hysterectomy, COPD, myelofibrosis, myelodysplasia, profound neutropenia in the past, profound anemia requiring multiple transfusions, and pancytopenia. MEDICATIONS: At home, significant for amiodarone 200 mg daily, Lasix 20 mg daily, gabapentin 300 mg three times a day, metoprolol 50 mg twice a day, digoxin 0.125 mg daily, and the patient is no longer on hydroxyurea. ALLERGIES: No known drug allergies. SOCIAL HISTORY: No smoking, alcohol, or drugs. Very supportive family. FAMILY HISTORY: Noncontributory. REVIEW OF SYSTEMS: Mostly as above. Denies any dysuria, frequency, hematuria, or hematochezia. Denies any bright red blood per rectum. Had a GI workup done in the past including EGD on the prior admission at [facility] showed gastritis. The patient complained of fatigue, weakness, and poor appetite. No fever or chills was reported. PHYSICAL EXAMINATION: VITAL SIGNS: On admission from the emergency department, temperature 98.8, pulse of 82, respirations 18, and blood pressure 116/79. GENERAL: The patient is awake and responsive, chronically ill-appearing and malnutrition. HEAD AND NECK: Pupils are equal and reactive to light. Extraocular movements are intact. Neck was supple. No JVD. LUNGS: Good air entry. No wheezing or rhonchi. Decreased air in bases. HEART: S1, S2. Irregular. No murmur or gallop. Pacemaker in left-sided chest wall was noted. ABDOMEN: Soft, nondistended, nontender. Positive bowel sounds. EXTREMITIES: No cyanosis, clubbing, or edema. NEUROLOGIC: Cranial nerves II to XII grossly intact. The patient is moving all extremities. Gait was not assessed due to the patient's status. Motor is 5/5 in upper extremity and 4/5 in the lower extremity. LABORATORY DATA: On admission from the emergency department, WBC of 4.7, hemoglobin 7.3, hematocrit 22, platelets 420,000. PT 12, INR 1.1, PTT of 27. Sodium 138, potassium 4.7, chloride 104, bicarb 27, BUN 34, creatinine 0.8, and glucose is 159. Alkaline phosphatase is 117. First troponin is 0.02. The patient's proBNP of 1179. Urinalysis, +2 protein, +1 leukocytes, otherwise negative. Recent chest x-ray from April 13, 2020, no acute process. ASSESSMENT: 1. Severe anemia, possible due to myelofibrosis. 2. Paroxysmal atrial fibrillation with prior history of rapid ventricular rate. 3. History of polycythemia vera. 4. JAK2 mutation. 5. Myelodysplastic syndrome. 6. Hypertension. 7. Coronary artery disease. 8. Dyslipidemia. 9. Congestive heart failure. 10. History of right hemothorax, status post of video-assisted thoracotomy and exploration on July 02, 2019. 11. Sick sinus syndrome, status post pacemaker. 12. Failure to thrive. 13. Severe protein-calorie malnutrition. PLAN: We will follow up with Dr. Rosaura multani from Hematology-Oncology and Dr. Freitas from Cardiology Electrophysiology. We will monitor laboratory closely. Consider to transfuse packed RBC as needed and bone marrow biopsy. Resume home medication. DVT prophylaxis, heparin subcutaneous. Code status is Full Code. Antonio Adrian M.D. DR: ДМИТРИЙ JOB#: [id number] CC:
--- NOTE | 2020-04-29 07:51 | Hematology/Onc Progress Note ---
Assessment/Plan Assessment/Plan ASSESSMENT AND RECOMMENDATIONS # Polycythemia vera, JAK2+++. In prior was on hydroxyurea in the pat, at this time, continues to be pancytopenic, admitted for further eval --> was in the past jak2+++ --> imaging abd us ordered - Splenomegaly. 3 cm cyst within the spleen probably complex with at least one or 2 septations. Trace right pleural effusion. Gallbladder sludge versus stones. --> hold off hydrea at this time --> BONE MARROW biopsy-->was done 04/28 # Pancytopenia now with initially with anemia of chronic disease due to underlying chronic medical issues, multifactorial, also due to polycythemia vera, hgb 5 on admission --> Anemia workup has been ordered, rule out gi bleed - results noted and cw acd --> No evidence of hemolysis is noted, peripheral smear has been reviewed. --> Hgb goal >7. Transfuse prn --> low threshold for gi evaluation in case has occult --> Hgb trend:4.8-->5.9-->7.7-->7.6->9->7.3 --> wbc 3.8-->4->3.6-->4 --> Patient received an EGD prior admission, by GI at that time that showed gastritis. No varices # Vertigo. --> per neuro as needed --> recs have been noted # Atrial fibrillation with rapid ventricular rate. --> Serial troponin levels will be performeD prior and neg --> per cards # Hypertension. Cont on clonidine # Obstructive sleep apnea. # Coronary artery disease. # Hypercholesteremia. # Congestive heart failure. # Dvt ppx heparin sq The time the the note is entered does not reflect the time the patient was examined. I greatly appreciate the consultation. Subjective Constitutional: Denies: no symptoms, chills, fever, malaise, weakness, other HEENT: Denies: no symptoms, eye pain, blurred vision, tearing, double vision, ear pain, ear discharge, nose pain, nose congestion, throat pain, throat swelling, mouth pain, mouth swelling, other Cardiovascular: Denies: no symptoms, chest pain, edema, irregular heart rate, lightheadedness, palpitations, syncope, other Respiratory: Denies: no symptoms, cough, shortness of breath, SOB with excertion, SOB at rest, sputum, wheezing, other Gastrointestinal/Abdominal: Denies: no symptoms, abdomen distended, abdominal pain, black stools, tarry stools, blood in stool, constipated, diarrhea, difficulty swallowing, nausea, poor appetite, poor fluid intake, rectal bleeding, vomiting, other Neurologic/Psychiatric: Denies: no symptoms, anxiety, depressed, emotional problems, headache, numbness, paresthesia, pre-existing deficit, seizure, tingling, tremors, weakness, other Endocrine: Denies: no symptoms, excessive sweating, flushing, intolerance to cold, intolerance to heat, increased hunger, increased thirst, increased urine, unexplained weight gain, unexplained weight loss, other Hematologic/Lymphatic: Denies: no symptoms, anemia, easy bleeding, easy bruising, adenopathy, other Allergies: Coded Allergies: No Known Allergies (Unverified , 04/24/18) Subjective 04/29 bone marrow biopsy was done yesterday, labs noted, pending path report Objective Objective Current Medications Medications (Trade) Dose Ordered Sig/Escobar Route PRN Reason Start Time Stop Time Status Last Admin Dose Admin Acetaminophen (Tylenol) 650 mg Q6H PRN ORAL Temp >100.5 04/27/20 21:45 05/27/20 21:44 Acetaminophen/ Hydrocodone Bitart ([place] 5/325) 1 tab Q6H PRN ORAL For Pain 04/27/20 21:45 05/04/20 21:44 Amiodarone HCl (Cordarone) 200 mg DAILY ORAL 04/28/20 09:00 07/27/20 08:59 04/28/20 08:03 Chlorhexidine Gluconate (Kamilla-Hex 2%) 1 applic DAILY TOPIC 04/29/20 09:00 07/28/20 08:59 Digoxin (Lanoxin) 0.125 mg DAILY ORAL 04/28/20 09:00 07/27/20 08:59 04/28/20 08:03 Heparin Sodium (Porcine) (Heparin 5000 units/ml) 5,000 units EVERY 12 HOURS SUBQ 04/28/20 09:00 06/12/20 08:59 04/28/20 20:24 Levothyroxine Sodium (Synthroid) 25 mcg DAILY@0630 ORAL 04/28/20 06:30 05/28/20 06:29 04/29/20 05:33 Lorazepam (Ativan 2mg/ml 1ml) 1 mg ONCE PRN IV PRIOR TO BONE BIOPSY 04/28/20 09:15 04/30/20 09:14 04/28/20 12:21 Morphine Sulfate (Morphine Sulfate) 1 mg ONCE PRN IVP PRIOR TO BONE BIOPSY 04/28/20 09:15 04/30/20 09:14 04/28/20 12:18 Pantoprazole (Protonix) 40 mg DAILY ORAL 04/28/20 09:00 05/28/20 08:59 04/28/20 08:03 Last 24 Hour Vital Signs Date Time Temp Pulse Resp B/P (MAP) Pulse Ox O2 Delivery O2 Flow Rate FiO2 04/29/20 04:00 97.4 65 20 113/59 (77) 97 04/29/20 00:00 97.3 69 18 121/77 (92) 97 04/28/20 20:44 Room Air 04/28/20 20:00 97.7 66 16 95/46 (62) 95 04/28/20 16:00 97.7 70 18 99/63 (75) 96 04/28/20 14:00 60 19 119/56 (77) 95 04/28/20 13:10 60 19 110/59 (76) 95 04/28/20 12:45 67 18 126/63 (84) 97 04/28/20 12:30 65 18 114/58 (76) 97 04/28/20 11:47 98.1 67 19 101/61 (74) 97 04/28/20 08:21 97.4 64 18 97/56 (70) 97 04/28/20 08:05 Room Air 04/28/20 08:03 64 04/28/20 04:00 97.8 64 18 115/63 (80) 97 04/28/20 00:00 97.9 61 18 111/64 (80) 98 04/27/20 21:00 Room Air 04/27/20 21:00 Room Air 04/27/20 20:20 98.1 62 18 105/57 (73) 99 04/27/20 20:00 98.2 71 18 112/60 96 Room Air 04/27/20 18:07 61 18 113/51 100 Room Air 04/27/20 14:09 98.8 18 116/79 100 Room Air 04/27/20 14:04 98.8 82 18 116/79 (91) 100 Room Air Intake and Output 04/28/20 04/29/20 19:00 07:00 Intake Total 400 ml Output Total 300 ml Balance 400 ml -300 ml Intake Oral 400 ml Output Urine Total 300 ml # Voids 1 Labs Test 04/27/20 14:34 04/27/20 15:28 04/28/20 04:50 White Blood Count 4.7 K/UL (4.8-10.8) 3.6 K/UL (4.8-10.8) Red Blood Count 2.52 M/UL (4.20-5.40) 2.48 M/UL (4.20-5.40) Hemoglobin 7.3 G/DL (12.0-16.0) 7.3 G/DL (12.0-16.0) Hematocrit 22.6 % (37.0-47.0) 22.3 % (37.0-47.0) Mean Corpuscular Volume 90 FL (80-99) 90 FL (80-99) Mean Corpuscular Hemoglobin 29.0 PG (27.0-31.0) 29.4 PG (27.0-31.0) Mean Corpuscular Hemoglobin Concent 32.3 G/DL (32.0-36.0) 32.7 G/DL (32.0-36.0) Red Cell Distribution Width 15.6 % (11.6-14.8) 15.4 % (11.6-14.8) Platelet Count 420 K/UL (150-450) 353 K/UL (150-450) Mean Platelet Volume 10.9 FL (6.5-10.1) 11.1 FL (6.5-10.1) Neutrophils (%) (Auto) % (45.0-75.0) % (45.0-75.0) Lymphocytes (%) (Auto) % (20.0-45.0) % (20.0-45.0) Monocytes (%) (Auto) % (1.0-10.0) % (1.0-10.0) Eosinophils (%) (Auto) % (0.0-3.0) % (0.0-3.0) Basophils (%) (Auto) % (0.0-2.0) % (0.0-2.0) Differential Total Cells Counted 100 100 Neutrophils % (Manual) 64 % (45-75) 64 % (45-75) Lymphocytes % (Manual) 22 % (20-45) 29 % (20-45) Monocytes % (Manual) 6 % (1-10) 4 % (1-10) Eosinophils % (Manual) 0 % (0-3) 0 % (0-3) Basophils % (Manual) 5 % (0-2) 3 % (0-2) Metamyelocytes % 2 % (0-0) Band Neutrophils 1 % (0-8) 0 % (0-8) Platelet Estimate Adequate Adequate Platelet Morphology Giant Platelets 1+ Occasional Polychromasia 1+ Anisocytosis 1+ 1+ Prothrombin Time 12.0 SEC (9.30-11.50) Prothromb Time International Ratio 1.1 (0.9-1.1) Activated Partial Thromboplast Time 27 SEC (23-33) Sodium Level 138 MMOL/L (136-145) 141 MMOL/L (136-145) Potassium Level 4.7 MMOL/L (3.5-5.1) 4.6 MMOL/L (3.5-5.1) Chloride Level 104 MMOL/L (98-107) 108 MMOL/L (98-107) Carbon Dioxide Level 27 MMOL/L (21-32) 27 MMOL/L (21-32) Anion Gap 7 mmol/L (5-15) 6 mmol/L (5-15) Blood Urea Nitrogen 34 mg/dL (7-18) 29 mg/dL (7-18) Creatinine 0.8 MG/DL (0.55-1.30) 0.7 MG/DL (0.55-1.30) Estimat Glomerular Filtration Rate > 60 mL/min (>60) > 60 mL/min (>60) Glucose Level 159 MG/DL (74-106) 87 MG/DL (74-106) Calcium Level 8.8 MG/DL (8.5-10.1) 8.7 MG/DL (8.5-10.1) Total Bilirubin 0.5 MG/DL (0.2-1.0) 0.5 MG/DL (0.2-1.0) Aspartate Amino Transf (AST/SGOT) 17 U/L (15-37) 14 U/L (15-37) Alanine Aminotransferase (ALT/SGPT) 21 U/L (12-78) 15 U/L (12-78) Alkaline Phosphatase 117 U/L (46-116) 108 U/L (46-116) Total Creatine Kinase 12 U/L (26-308) Troponin I 0.002 ng/mL (0.000-0.056) Pro-B-Type Natriuretic Peptide 1179 pg/mL (0-125) 1300 pg/mL (0-125) Total Protein 6.6 G/DL (6.4-8.2) 6.1 G/DL (6.4-8.2) Albumin 2.8 G/DL (3.4-5.0) 2.5 G/DL (3.4-5.0) Globulin 3.8 g/dL 3.6 g/dL Albumin/Globulin Ratio 0.7 (1.0-2.7) 0.7 (1.0-2.7) Urine Color Yellow Urine Appearance Clear Urine pH 6 (4.5-8.0) Urine Specific [place] 1.005 (1.005-1.035) Urine Protein 2+ (NEGATIVE) Urine Glucose (UA) Negative (NEGATIVE) Urine Ketones Negative (NEGATIVE) Urine Blood Negative (NEGATIVE) Urine Nitrite Negative (NEGATIVE) Urine Bilirubin Negative (NEGATIVE) Urine Urobilinogen Normal MG/DL (0.0-1.0) Urine Leukocyte Esterase 1+ (NEGATIVE) Urine RBC 0-2 /HPF (0 - 2) Urine WBC 0-2 /HPF (0 - 2) Urine Squamous Epithelial Cells Occasional /LPF Urine Bacteria None /HPF (NONE) Hypochromasia 1+ Phosphorus Level 3.1 MG/DL (2.5-4.9) Magnesium Level 2.3 MG/DL (1.8-2.4) Height (Feet): 4 Height (Inches): 10.00 Weight (Pounds): 100 Objective Physical Exam Vitals: noted General: thin, other - frail, Chronically Ill Eyes: bilateral eye PERRL, bilateral eye EOMI ENT: moist mucus membranes - slightly dry Neck: full range of motion, no bony tend, other Respiratory: chest non-tender- Pacemaker left Cardiovascular: regular rate, rhythm Gastrointestinal: normal bowel sounds Genitourinary: no CVA tenderness Musculoskeletal: back normal, no calf tenderness, other - kyphosis Neurologic: alert, technical proposal writer III-XII nml as tested Psychiatric: mood/affect normal Skin: warm/dry - cool feet, pallor Best Kaplan MD Apr 29, 2020 07:51
[2020-04-29] MEDS: Amiodarone 200mg tab ORAL SCH (08:43)
[2020-04-29] MEDS: Digoxin 0.125mg tab ORAL SCH (08:43)
[2020-04-29] MEDS: Heparin 5000 units/ml inj SUBQ SCH ×2 (08:43→20:47)
[2020-04-29] MEDS: Dyna-Hex 2% Top Sol 2oz TOPIC SCH (09:00)
--- NOTE | 2020-04-29 12:10 | Nephrology Progress Note ---
Assessment/Plan Problem List: (1) Proteinuria (2) Protein-calorie malnutrition, severe (3) Anemia Assessment Symptomatic anemia Hypotension, periodic Proteinuria, hypoalbuminemia Encephalopathy Plan April 29: Patient weak. 24-hour urine for protein pending. No labs drawn today. Continue per consultants. Transfusion per hematology Keep the blood pressure and heart rate in check 24-hour urine collection for total protein Per orders Subjective ROS Limited/Unobtainable: No Constitutional: Reports: malaise Objective Objective Last 24 Hour Vital Signs Date Time Temp Pulse Resp B/P (MAP) Pulse Ox O2 Delivery O2 Flow Rate FiO2 04/29/20 11:54 97.9 83 18 108/55 (72) 95 04/29/20 09:00 Room Air 04/29/20 08:43 65 04/29/20 08:00 98.6 65 18 101/55 (70) 96 04/29/20 04:00 97.4 65 20 113/59 (77) 97 04/29/20 00:00 97.3 69 18 121/77 (92) 97 04/28/20 20:44 Room Air 04/28/20 20:00 97.7 66 16 95/46 (62) 95 04/28/20 16:00 97.7 70 18 99/63 (75) 96 04/28/20 14:00 60 19 119/56 (77) 95 04/28/20 13:10 60 19 110/59 (76) 95 04/28/20 12:45 67 18 126/63 (84) 97 04/28/20 12:30 65 18 114/58 (76) 97 Intake and Output 04/28/20 04/29/20 19:00 07:00 Intake Total 400 ml Output Total 300 ml Balance 400 ml -300 ml Intake Oral 400 ml Output Urine Total 300 ml # Voids 1 Current Medications Medications (Trade) Dose Ordered Sig/Escobar Route PRN Reason Start Time Stop Time Status Last Admin Dose Admin Acetaminophen (Tylenol) 650 mg Q6H PRN ORAL Temp >100.5 04/27/20 21:45 05/27/20 21:44 Acetaminophen/ Hydrocodone Bitart ([place] 5/325) 1 tab Q6H PRN ORAL For Pain 04/27/20 21:45 05/04/20 21:44 Amiodarone HCl (Cordarone) 200 mg DAILY ORAL 04/28/20 09:00 07/27/20 08:59 04/28/20 08:03 Chlorhexidine Gluconate (Kamilla-Hex 2%) 1 applic DAILY TOPIC 04/29/20 09:00 07/28/20 08:59 Digoxin (Lanoxin) 0.125 mg DAILY ORAL 04/28/20 09:00 07/27/20 08:59 04/29/20 08:43 Heparin Sodium (Porcine) (Heparin 5000 units/ml) 5,000 units EVERY 12 HOURS SUBQ 04/28/20 09:00 06/12/20 08:59 04/28/20 20:24 Levothyroxine Sodium (Synthroid) 25 mcg DAILY@0630 ORAL 04/28/20 06:30 05/28/20 06:29 04/29/20 05:33 Lorazepam (Ativan 2mg/ml 1ml) 1 mg ONCE PRN IV PRIOR TO BONE BIOPSY 04/28/20 09:15 04/30/20 09:14 04/28/20 12:21 Morphine Sulfate (Morphine Sulfate) 1 mg ONCE PRN IVP PRIOR TO BONE BIOPSY 04/28/20 09:15 04/30/20 09:14 04/28/20 12:18 Pantoprazole (Protonix) 40 mg DAILY ORAL 04/28/20 09:00 05/28/20 08:59 04/29/20 08:42 Height (Feet): 4 Height (Inches): 10.00 Weight (Pounds): 100 General Appearance: no apparent distress, lethargic Cardiovascular: normal rate Respiratory/Chest: decreased breath sounds Abdomen: soft Sudhakar Griggs MD Apr 29, 2020 12:10
--- NOTE | 2020-04-29 12:12 | Consultation ---
History of Present Illness General Date patient seen: Apr 29, 2020 Reason for Hospitalization: Generalized Weakness Present Illness HPI 79-year-old female multimedical comorbidities complex hematological history recently admitted for anemia neck pain resolved discharged was seen by her station supervisor recommended for bone marrow biopsy she continues to have anemia related to [facility] at which time had a bone marrow biopsy yesterday 04/28/2020 no complaint of pain from the site. Surgery called to evaluate assist with care patient seen, patient evaluated chart reviewed no nausea fever chills tolerating diet feels well otherwise no transfusions yet Allergies: Coded Allergies: No Known Allergies (Unverified , 04/24/18) COVID-19 Screening Contact w/high risk pt: No Recent Travel to affected area: No Experienced COVID-19 symptoms?: No Medication History Scheduled Amiodarone Hcl (Amiodarone Hcl), 200 MG ORAL DAILY, (Reported) Digoxin* (Digoxin*), 125 MCG ORAL DAILY, (Reported) Levothyroxine Sodium* (Synthroid*), 25 MCG ORAL DAILY, (Reported) Omeprazole (Omeprazole), 20 MG ORAL DAILY, (Reported) Patient History History Provided By: Patient, Medical Record, PMD Healthcare decision maker Resuscitation status Advanced Directive on File Past Medical/Surgical History Past Medical/Surgical History: (1) COVID-19 ruled out by laboratory testing (2) Profound anemia (3) Neck pain (4) Generalized weakness (5) Failure to thrive (6) Hypotension (7) Abnormal LFTs (8) Severe anemia (9) Symptomatic anemia (10) Altered mental state (11) Signs and symptoms of anemia (12) Episode of generalized weakness (13) Protein-calorie malnutrition, severe (14) Proteinuria (15) ACS (acute coronary syndrome) (16) Pyelonephritis (17) CAD (coronary artery disease) (18) COPD (chronic obstructive pulmonary disease) (19) positional vertigo (20) KELVIN (obstructive sleep apnea) (21) Peripheral neuropathy (22) Myelofibrosis (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 (24) UTI (urinary tract infection) (25) Polycythemia vera (26) Pacemaker (27) Acute encephalopathy (28) Chronic anticoagulation (29) RLL pneumonia (30) Hematothorax (31) Thoracostomy tube in place (32) Collapse of left lung (33) Paroxysmal A-fib (34) Anemia Review of Systems Review of Symptoms General ROS: no weight loss or fever Psychological ROS: no depression or mood changes, no memory loss Ophthalmic ROS: no visual changes or eye irritation ENT ROS: no nasal congestion, hearing loss, dizziness Allergy and Immunology ROS: no allergic symptoms or urticaria Hematological and Lymphatic ROS: no swollen glands, unusual bleeding or bruising Endocrine ROS: no polyuria, polydipsia, weight changes, temperature intolerance Respiratory ROS: no cough, shortness of breath, or wheezing Cardiovascular ROS: no chest pain or dyspnea on exertion Gastrointestinal ROS: denies abdominal pain, bright red blood in stool. Musculoskeletal ROS: no myalgias or arthralgias Neurological ROS: no TIA or stroke symptoms Dermatological ROS: no new or changing skin lesions, rashes or pruritis Physical Exam Physical Exam General appearance: alert, cooperative, no distress, appears stated age Head: Normocephalic, without obvious abnormality, atraumatic Eyes: conjunctivae/corneas clear. PERRL, EOM's intact. Fundi benign Throat: Lips, mucosa, and tongue normal. Teeth and gums normal Neck: supple, symmetrical, trachea midline, no adenopathy, thyroid: not enlarged, symmetric, no tenderness/mass/nodules, no carotid bruit and no JVD Lungs: clear to auscultation bilaterally Heart: regular rate and rhythm, S1, S2 normal, no murmur, click, rub or gallop Abdomen: soft, non-tender. Bowel sounds normal. No masses, no organomegaly Extremities: extremities normal, atraumatic, no cyanosis or edema Pulses: 2+ and symmetric Skin: Skin color, texture, turgor normal. No rashes or lesions Neurologic: Grossly normal Last 24 Hour Vital Signs Date Time Temp Pulse Resp B/P (MAP) Pulse Ox O2 Delivery O2 Flow Rate FiO2 04/29/20 11:54 97.9 83 18 108/55 (72) 95 04/29/20 09:00 Room Air 04/29/20 08:43 65 04/29/20 08:00 98.6 65 18 101/55 (70) 96 04/29/20 04:00 97.4 65 20 113/59 (77) 97 04/29/20 00:00 97.3 69 18 121/77 (92) 97 04/28/20 20:44 Room Air 04/28/20 20:00 97.7 66 16 95/46 (62) 95 3/18/21 16:00 97.7 70 18 99/63 (75) 96 04/28/20 14:00 60 19 119/56 (77) 95 04/28/20 13:10 60 19 110/59 (76) 95 04/28/20 12:45 67 18 126/63 (84) 97 04/28/20 12:30 65 18 114/58 (76) 97 Intake and Output 04/28/20 04/29/20 19:00 07:00 Intake Total 400 ml Output Total 300 ml Balance 400 ml -300 ml Intake Oral 400 ml Output Urine Total 300 ml # Voids 1 Height (Feet): 4 Height (Inches): 10.00 Weight (Pounds): 100 Medications Current Medications Medications (Trade) Dose Ordered Sig/Escobar Route PRN Reason Start Time Stop Time Status Last Admin Dose Admin Acetaminophen (Tylenol) 650 mg Q6H PRN ORAL Temp >100.5 04/27/20 21:45 05/27/20 21:44 Acetaminophen/ Hydrocodone Bitart ([place] 5/325) 1 tab Q6H PRN ORAL For Pain 04/27/20 21:45 05/04/20 21:44 Amiodarone HCl (Cordarone) 200 mg DAILY ORAL 04/28/20 09:00 07/27/20 08:59 04/28/20 08:03 Chlorhexidine Gluconate (Kamilla-Hex 2%) 1 applic DAILY TOPIC 04/29/20 09:00 07/28/20 08:59 Digoxin (Lanoxin) 0.125 mg DAILY ORAL 04/28/20 09:00 07/27/20 08:59 04/29/20 08:43 Heparin Sodium (Porcine) (Heparin 5000 units/ml) 5,000 units EVERY 12 HOURS SUBQ 04/28/20 09:00 06/12/20 08:59 04/28/20 20:24 Levothyroxine Sodium (Synthroid) 25 mcg DAILY@0630 ORAL 04/28/20 06:30 05/28/20 06:29 04/29/20 05:33 Lorazepam (Ativan 2mg/ml 1ml) 1 mg ONCE PRN IV PRIOR TO BONE BIOPSY 04/28/20 09:15 04/30/20 09:14 04/28/20 12:21 Morphine Sulfate (Morphine Sulfate) 1 mg ONCE PRN IVP PRIOR TO BONE BIOPSY 04/28/20 09:15 04/30/20 09:14 04/28/20 12:18 Pantoprazole (Protonix) 40 mg DAILY ORAL 04/28/20 09:00 05/28/20 08:59 04/29/20 08:42 Assessment/Plan Problem List: (1) Pelvic pain Assessment & Plan: s/p bone marrow biopsy from iliac crest pain from site no bleeding no n/v/f/c labs noted no cellulitis tender on palpation likely from recent procedure no complication from procedure okay for diet dressings prn pending path will follow with recs thank you pain management ICD Codes: R10.2 - Pelvic and perineal pain SNOMED: 59289395 (2) Episode of generalized weakness ICD Codes: R53.1 - Weakness SNOMED: 22813617 (3) Protein-calorie malnutrition, severe ICD Codes: E43 - Unspecified severe protein-calorie malnutrition SNOMED: 244779157, 862963541, 181765860 (4) Proteinuria ICD Codes: R80.9 - Proteinuria, unspecified SNOMED: 07758112 (5) Generalized weakness ICD Codes: R53.1 - Weakness SNOMED: 73072617 (6) Failure to thrive SNOMED: 81763228 (7) Altered mental state ICD Codes: R41.82 - Altered mental status, unspecified SNOMED: 513237121, 755941235 (8) Profound anemia ICD Codes: D64.9 - Anemia, unspecified SNOMED: 791756424 (9) Neck pain ICD Codes: M54.2 - Cervicalgia SNOMED: 23056856 (10) Hypotension ICD Codes: I95.9 - Hypotension, unspecified SNOMED: 92366951 (11) Abnormal LFTs ICD Codes: R94.5 - Abnormal results of liver function studies SNOMED: 051733458 (12) Severe anemia ICD Codes: D64.9 - Anemia, unspecified SNOMED: 546237615 (13) Symptomatic anemia ICD Codes: D64.9 - Anemia, unspecified SNOMED: 422229441 (14) Signs and symptoms of anemia ICD Codes: D64.9 - Anemia, unspecified SNOMED: 50388427, 775004431 (15) COVID-19 ruled out by laboratory testing ICD Codes: Z20.822 - Contact with and (suspected) exposure to COVID-19 SNOMED: 912106277190728675, 027326481 (16) ACS (acute coronary syndrome) ICD Codes: I20.0 - Unstable angina SNOMED: 280478663 (17) Pyelonephritis ICD Codes: N12 - Tubulo-interstitial nephritis, not specified as acute or chronic SNOMED: 61865667 (18) CAD (coronary artery disease) ICD Codes: I25.10 - Atherosclerotic heart disease of [place] coronary artery without angina pectoris SNOMED: 09013508 (19) COPD (chronic obstructive pulmonary disease) ICD Codes: J44.9 - Chronic obstructive pulmonary disease, unspecified SNOMED: 19939571 (20) positional vertigo (21) KELVIN (obstructive sleep apnea) ICD Codes: G47.33 - Obstructive sleep apnea (adult) (pediatric) SNOMED: 46008874 (22) Peripheral neuropathy ICD Codes: G62.9 - Polyneuropathy, unspecified SNOMED: 587419717 (23) Myelofibrosis ICD Codes: D75.81 - Myelofibrosis SNOMED: 29035809 (24) JAK2 V617F mutation ICD Codes: Z15.89 - Genetic susceptibility to other disease SNOMED: 06952466 (25) UTI (urinary tract infection) ICD Codes: N39.0 - Urinary tract infection, site not specified SNOMED: 40228845 (26) Polycythemia vera ICD Codes: D45 - Polycythemia vera SNOMED: 977990171 (27) Pacemaker ICD Codes: Z95.0 - Presence of cardiac pacemaker SNOMED: 779867779 (28) Acute encephalopathy ICD Codes: G93.40 - Encephalopathy, unspecified SNOMED: 74996501, 099060811 (29) Chronic anticoagulation ICD Codes: Z79.01 - termite renewal inspector (current) use of anticoagulants SNOMED: 115899494 (30) RLL pneumonia ICD Codes: J18.9 - Pneumonia, unspecified organism SNOMED: 740126726 (31) Hematothorax ICD Codes: J94.2 - Hemothorax SNOMED: 58318222 (32) Thoracostomy tube in place ICD Codes: Z96.89 - Presence of other specified functional implants SNOMED: 394508301 (33) Collapse of left lung ICD Codes: J98.11 - Atelectasis SNOMED: 38052339 (34) Paroxysmal A-fib ICD Codes: I48.0 - Paroxysmal atrial fibrillation SNOMED: 359595268 (35) Anemia ICD Codes: D64.9 - Anemia, unspecified SNOMED: 856079591 Qualifiers: Qualified Codes: D64.9 - Anemia, unspecified Errol Estrada Apr 29, 2020 12:12
--- NOTE | 2020-04-29 14:16 | Internal Med Progress Note ---
Subjective Physician Name Antonio Adrian Attending Physician Antonio Adrian MD Current Medications Medications (Trade) Dose Ordered Sig/Escobar Route PRN Reason Start Time Stop Time Status Last Admin Dose Admin Acetaminophen (Tylenol) 650 mg Q6H PRN ORAL Temp >100.5 04/27/20 21:45 05/27/20 21:44 Acetaminophen/ Hydrocodone Bitart ([place] 5/325) 1 tab Q6H PRN ORAL For Pain 04/27/20 21:45 05/04/20 21:44 Amiodarone HCl (Cordarone) 200 mg DAILY ORAL 04/28/20 09:00 07/27/20 08:59 04/28/20 08:03 Chlorhexidine Gluconate (Kamilla-Hex 2%) 1 applic DAILY TOPIC 04/29/20 09:00 07/28/20 08:59 Digoxin (Lanoxin) 0.125 mg DAILY ORAL 04/28/20 09:00 07/27/20 08:59 04/29/20 08:43 Heparin Sodium (Porcine) (Heparin 5000 units/ml) 5,000 units EVERY 12 HOURS SUBQ 04/28/20 09:00 06/12/20 08:59 04/28/20 20:24 Levothyroxine Sodium (Synthroid) 25 mcg DAILY@0630 ORAL 04/28/20 06:30 05/28/20 06:29 04/29/20 05:33 Lorazepam (Ativan 2mg/ml 1ml) 1 mg ONCE PRN IV PRIOR TO BONE BIOPSY 04/28/20 09:15 04/30/20 09:14 04/28/20 12:21 Morphine Sulfate (Morphine Sulfate) 1 mg ONCE PRN IVP PRIOR TO BONE BIOPSY 04/28/20 09:15 04/30/20 09:14 04/28/20 12:18 Pantoprazole (Protonix) 40 mg DAILY ORAL 04/28/20 09:00 05/28/20 08:59 04/29/20 08:42 Allergies: Coded Allergies: No Known Allergies (Unverified , 04/24/18) Subjective awake, alert, responsive, no acute distress, chronically ill appearing, hemoglobin 7.3 stable. Objective Last Vital Signs Date Time Temp Pulse Resp B/P (MAP) Pulse Ox O2 Delivery O2 Flow Rate FiO2 04/29/20 11:54 97.9 83 18 108/55 (72) 95 04/29/20 09:00 Room Air Intake and Output 04/28/20 04/29/20 18:59 06:59 Intake Total 400 ml Output Total 300 ml Balance 400 ml -300 ml Intake Oral 400 ml Output Urine Total 300 ml # Voids 1 Objective GENERAL: The patient is awake and responsive, chronically ill-appearing and malnutrition. HEAD AND NECK: Pupils are equal and reactive to light. Extraocular movements are intact. Neck was supple. No JVD. LUNGS: Good air entry. No wheezing or rhonchi. Decreased air in bases. HEART: S1, S2. Irregular. No murmur or gallop. Pacemaker in left-sided chest wall was noted. ABDOMEN: Soft, nondistended, nontender. Positive bowel sounds. EXTREMITIES: No cyanosis, clubbing, or edema. NEUROLOGIC: Cranial nerves II to XII grossly intact. The patient is moving all extremities. Gait was not assessed due to the patient's status. Motor is 5/5 in upper extremity and 4/5 in the lower extremity. Assessment/Plan Assessment/Plan ASSESSMENT: 1. Severe anemia, possible due to myelofibrosis. 2. Paroxysmal atrial fibrillation with prior history of rapid ventricular rate. 3. History of polycythemia vera. 4. JAK2 mutation. 5. Myelodysplastic syndrome. 6. Hypertension. 7. Coronary artery disease. 8. Dyslipidemia. 9. Congestive heart failure. 10. History of right hemothorax, status post of video-assisted thoracotomy and exploration on July 02, 2019. 11. Sick sinus syndrome, status post pacemaker. 12. Failure to thrive. 13. Severe protein-calorie malnutrition. PLAN: Dr. Kaplan recommendation from Hematology-Oncology Dr. Freitas from Cardiology Electrophysiology. monitor laboratory closely. Consider to transfuse packed RBC as needed follow-up with bone marrow biopsy result. DVT prophylaxis: heparin subcutaneous. Code status is Full Code. PT mobility. Antonio Adrian MD Apr 29, 2020 14:16
--- NOTE | 2020-04-29 17:23 | Cardiac Electrophysiology PN ---
Assessment/Plan Assessment/Plan 1. Hypertension. Off Lopressor 12.5 po bid as BP was in 90s 2. Status post [employer] pacer in 2010 and gen change by me in 2019. 3. Paroxysmal atrial fibrillation with rapid ventricular response. On digoxin 0.125 and amiodarone 200 daily. Off Metoprolol for Low BP Off anticoagulation for recurrent bleeding and profound anemia. 4. Profound anemia with hemoglobin of 3 to 4. S/P 6 units of PRBC in 01/2020 S/P 4 units of PRBC again in 04/03 S/P PRBC on 04/14/20 and getting one today. 5. History of hemothorax, status post VATS. 6. Pulmonary hypertension. 7. Myelofibrosis.S/P BM Biopsy today Fu per data entry processor DW RN Subjective Subjective Comfortable getting PRBC in NAD. RN at bedside.No CP or SOB Objective Last 24 Hour Vital Signs Date Time Temp Pulse Resp B/P (MAP) Pulse Ox O2 Delivery O2 Flow Rate FiO2 04/29/20 16:40 97 04/29/20 16:00 99.5 67 18 107/56 (73) 04/29/20 11:54 97.9 83 18 108/55 (72) 95 04/29/20 09:00 Room Air 04/29/20 08:43 65 04/29/20 08:00 98.6 65 18 101/55 (70) 96 04/29/20 04:00 97.4 65 20 113/59 (77) 97 04/29/20 00:00 97.3 69 18 121/77 (92) 97 04/28/20 20:44 Room Air 04/28/20 20:00 97.7 66 16 95/46 (62) 95 Intake and Output 04/28/20 04/29/20 19:00 07:00 Intake Total 400 ml Output Total 300 ml Balance 400 ml -300 ml Intake Oral 400 ml Output Urine Total 300 ml # Voids 1 Objective HEAD AND NECK: no JVD. LUNGS: Clear. CARDIOVASCULAR: Regular S1 and S2 with no gallop. Pacemaker in left subclavian. ABDOMEN: Soft. EXTREMITIES: No pitting edema. River Freitas MD Apr 29, 2020 17:23
[2020-04-30 04:00] VITALS: BP 115/58
[2020-04-30] MEDS: Levothyroxine 25mcg tab ORAL SCH (05:07)
[2020-04-30 08:00] VITALS: BP 108/58
[2020-04-30] MEDS: Amiodarone 200mg tab ORAL SCH (09:00)
[2020-04-30] MEDS: Digoxin 0.125mg tab ORAL SCH (09:00)
--- NOTE | 2020-04-30 09:38 | Nephrology Progress Note ---
Assessment/Plan Problem List: (1) Proteinuria (2) Protein-calorie malnutrition, severe (3) Anemia Assessment Symptomatic anemia Hypotension, periodic Proteinuria, hypoalbuminemia Encephalopathy Plan April 30: Remains weak. Today's can panel pending. Continue per consultants. 24-hour urine for protein unremarkable. Hypoalbuminemia mainly nutritional. April 29: Patient weak. 24-hour urine for protein pending. No labs drawn today. Continue per consultants. Transfusion per hematology Keep the blood pressure and heart rate in check 24-hour urine collection for total protein Per orders Subjective ROS Limited/Unobtainable: No Constitutional: Reports: malaise, weakness Objective Objective Last 24 Hour Vital Signs Date Time Temp Pulse Resp B/P (MAP) Pulse Ox O2 Delivery O2 Flow Rate FiO2 04/30/20 07:49 Room Air 04/30/20 04:00 97.7 62 18 115/58 (77) 99 04/29/20 23:47 98.0 63 18 105/58 (74) 98 04/29/20 20:18 Room Air 04/29/20 20:00 97.8 68 18 109/53 (71) 95 04/29/20 16:40 97 04/29/20 16:00 99.5 67 18 107/56 (73) 04/29/20 11:54 97.9 83 18 108/55 (72) 95 Intake and Output 04/29/20 04/30/20 19:00 07:00 Intake Total 400 ml 450 ml Output Total 300 ml 700 ml Balance 100 ml -250 ml Intake Oral 400 ml 200 ml Blood Product 250 ml Output Urine Total 300 ml 700 ml Current Medications Medications (Trade) Dose Ordered Sig/Escobar Route PRN Reason Start Time Stop Time Status Last Admin Dose Admin Acetaminophen (Tylenol) 650 mg Q6H PRN ORAL Temp >100.5 04/27/20 21:45 05/27/20 21:44 Acetaminophen/ Hydrocodone Bitart ([place] 5/325) 1 tab Q6H PRN ORAL For Pain 04/27/20 21:45 05/04/20 21:44 Amiodarone HCl (Cordarone) 200 mg DAILY ORAL 04/28/20 09:00 07/27/20 08:59 04/28/20 08:03 Chlorhexidine Gluconate (Kamilla-Hex 2%) 1 applic DAILY TOPIC 04/29/20 09:00 07/28/20 08:59 Digoxin (Lanoxin) 0.125 mg DAILY ORAL 04/28/20 09:00 07/27/20 08:59 04/29/20 08:43 Heparin Sodium (Porcine) (Heparin 5000 units/ml) 5,000 units EVERY 12 HOURS SUBQ 04/28/20 09:00 06/12/20 08:59 04/28/20 20:24 Levothyroxine Sodium (Synthroid) 25 mcg DAILY@0630 ORAL 04/28/20 06:30 05/28/20 06:29 04/30/20 05:07 Pantoprazole (Protonix) 40 mg DAILY ORAL 04/28/20 09:00 05/28/20 08:59 04/29/20 08:42 Today's labs still pending laboratory Tests 04/29/20 22:30: Urine Collection Time 24, Urine Total Volume 1000, Urine Total Protein mg/dL 30, Urine Total Protein 24 Hour 30.4 Height (Feet): 4 Height (Inches): 10.00 Weight (Pounds): 100 General Appearance: no apparent distress, lethargic Cardiovascular: normal rate Abdomen: soft Objective No change Sudhakar Griggs MD Apr 30, 2020 09:38
[2020-04-30] MEDS: Dyna-Hex 2% Top Sol 2oz TOPIC SCH (09:53)
[2020-04-30] MEDS: Heparin 5000 units/ml inj SUBQ SCH ×2 (09:54→20:47)
[2020-04-30 10:54] LABS: BASOPHILS % (AUTO) 7.5 % (0.0-2.0); EOSINOPHILS % (AUTO) 0.3 % (0.0-3.0); HEMATOCRIT 25.6 % (37.0-47.0); HEMOGLOBIN 8.3 G/DL (12.0-16.0); LYMPHOCYTES % (AUTO) 19.8 % (20.0-45.0); MEAN CORPUSCULAR VOLUME 87 FL (80-99); MONOCYTES % (AUTO) 6.5 % (1.0-10.0); NEUTROPHILS % (AUTO) 65.9 % (45.0-75.0); PLATELET COUNT 346 K/UL (150-450); RED BLOOD COUNT 2.94 M/UL (4.20-5.40); RED CELL DISTRIBUTION WIDTH 15.4 % (11.6-14.8)
[2020-04-30 11:08] LABS: ALANINE AMINOTRANSFERASE 17 U/L (12-78); ALBUMIN 2.5 G/DL (3.4-5.0); ALBUMIN/GLOBULIN RATIO 0.7 (1.0-2.7); ALKALINE PHOSPHATASE 99 U/L (46-116); ANION GAP 6 mmol/L (5-15); ASPARTATE AMINO TRANSFERASE 13 U/L (15-37); BILIRUBIN,TOTAL 0.5 MG/DL (0.2-1.0); BLOOD UREA NITROGEN 21 mg/dL (7-18); CALCIUM 8.6 MG/DL (8.5-10.1); CARBON DIOXIDE 26 MMOL/L (21-32); CHLORIDE 105 MMOL/L (98-107); CREATININE 0.8 MG/DL (0.55-1.30); PHOSPHORUS 3.1 MG/DL (2.5-4.9); POTASSIUM 4.2 MMOL/L (3.5-5.1); SODIUM 137 MMOL/L (136-145)
[2020-04-30 12:00] VITALS: BP 101/51
--- NOTE | 2020-04-30 14:41 | Cardiac Electrophysiology PN ---
Assessment/Plan Assessment/Plan 1. Hypertension. Off Lopressor 12.5 po bid as BP was in 90s 2. Status post [employer] pacer in 2010 and gen change by me in 2019. 3. Paroxysmal atrial fibrillation with rapid ventricular response. On digoxin 0.125 and amiodarone 200 daily. Off Metoprolol for Low BP Off anticoagulation for recurrent bleeding and profound anemia. 4. Profound anemia with hemoglobin of 3 to 4. S/P 6 units of PRBC in 01/2020 S/P 4 units of PRBC again in 04/03 S/P PRBC on 04/14/20 and 04/29/20 5. History of hemothorax, status post VATS. 6. Pulmonary hypertension. 7. Myelofibrosis.S/P BM Biopsy Fu per marketing underwriter DW RN Subjective Subjective Comfortable s/p PRBC in NAD. RN at bedside.No CP or SOB. Hb increased from 7.3 to 8.3 Objective Last 24 Hour Vital Signs Date Time Temp Pulse Resp B/P (MAP) Pulse Ox O2 Delivery O2 Flow Rate FiO2 04/30/20 12:00 98.3 60 18 101/51 (68) 99 04/30/20 09:00 58 04/30/20 08:00 97.2 57 18 108/58 (75) 99 04/30/20 07:49 Room Air 04/30/20 04:00 97.7 62 18 115/58 (77) 99 04/29/20 23:47 98.0 63 18 105/58 (74) 98 04/29/20 20:18 Room Air 04/29/20 20:00 97.8 68 18 109/53 (71) 95 04/29/20 16:40 97 04/29/20 16:00 99.5 67 18 107/56 (73) Intake and Output 04/29/20 04/30/20 19:00 07:00 Intake Total 400 ml 450 ml Output Total 300 ml 700 ml Balance 100 ml -250 ml Intake Oral 400 ml 200 ml Blood Product 250 ml Output Urine Total 300 ml 700 ml Laboratory Tests Test 04/29/20 22:30 04/30/20 10:45 Urine Collection Time 24 HRS Urine Total Volume 1000 ML Urine Total Protein mg/dL 30 mg/dL Urine Total Protein 24 Hour 30.4 mg/24hr (< 150) White Blood Count 4.0 K/UL (4.8-10.8) L Red Blood Count 2.94 M/UL (4.20-5.40) L Hemoglobin 8.3 G/DL (12.0-16.0) L Hematocrit 25.6 % (37.0-47.0) L Mean Corpuscular Volume 87 FL (80-99) Mean Corpuscular Hemoglobin 28.1 PG (27.0-31.0) Mean Corpuscular Hemoglobin Concent 32.4 G/DL (32.0-36.0) Red Cell Distribution Width 15.4 % (11.6-14.8) H Platelet Count 346 K/UL (150-450) Mean Platelet Volume 10.4 FL (6.5-10.1) H Neutrophils (%) (Auto) 65.9 % (45.0-75.0) Lymphocytes (%) (Auto) 19.8 % (20.0-45.0) L Monocytes (%) (Auto) 6.5 % (1.0-10.0) Eosinophils (%) (Auto) 0.3 % (0.0-3.0) Basophils (%) (Auto) 7.5 % (0.0-2.0) H Sodium Level 137 MMOL/L (136-145) Potassium Level 4.2 MMOL/L (3.5-5.1) Chloride Level 105 MMOL/L (98-107) Carbon Dioxide Level 26 MMOL/L (21-32) Anion Gap 6 mmol/L (5-15) Blood Urea Nitrogen 21 mg/dL (7-18) H Creatinine 0.8 MG/DL (0.55-1.30) Estimat Glomerular Filtration Rate > 60 mL/min (>60) Glucose Level 107 MG/DL (74-106) H Uric Acid 4.3 MG/DL (2.6-7.2) Calcium Level 8.6 MG/DL (8.5-10.1) Phosphorus Level 3.1 MG/DL (2.5-4.9) Magnesium Level 2.0 MG/DL (1.8-2.4) Total Bilirubin 0.5 MG/DL (0.2-1.0) Aspartate Amino Transf (AST/SGOT) 13 U/L (15-37) L Alanine Aminotransferase (ALT/SGPT) 17 U/L (12-78) Alkaline Phosphatase 99 U/L (46-116) Total Protein 6.2 G/DL (6.4-8.2) L Albumin 2.5 G/DL (3.4-5.0) L Globulin 3.7 g/dL Albumin/Globulin Ratio 0.7 (1.0-2.7) L Objective HEAD AND NECK: no JVD. LUNGS: Clear. CARDIOVASCULAR: Regular S1 and S2 with no gallop. Pacemaker in left subclavian. ABDOMEN: Soft. EXTREMITIES: No pitting edema. River Freitas MD Apr 30, 2020 14:41
--- NOTE | 2020-04-30 14:44 | Surgery Progress Note ---
Surgery Progress Note Subjective Symptoms: improved, tolerating diet, passing flatus, pain decreased Objective Last 24 Hour Vital Signs Date Time Temp Pulse Resp B/P (MAP) Pulse Ox O2 Delivery O2 Flow Rate FiO2 04/30/20 12:00 98.3 60 18 101/51 (68) 99 04/30/20 09:00 58 04/30/20 08:00 97.2 57 18 108/58 (75) 99 04/30/20 07:49 Room Air 04/30/20 04:00 97.7 62 18 115/58 (77) 99 04/29/20 23:47 98.0 63 18 105/58 (74) 98 04/29/20 20:18 Room Air 04/29/20 20:00 97.8 68 18 109/53 (71) 95 04/29/20 16:40 97 04/29/20 16:00 99.5 67 18 107/56 (73) I&O Intake and Output 04/29/20 04/30/20 19:00 07:00 Intake Total 400 ml 450 ml Output Total 300 ml 700 ml Balance 100 ml -250 ml Intake Oral 400 ml 200 ml Blood Product 250 ml Output Urine Total 300 ml 700 ml Dressing: dry Wound: clean Cardiovascular: RSR Respiratory: clear Abdomen: soft, flat, non-tender, present bowel sounds Extremities: no edema, no tenderness, no cyanosis Laboratory Tests Test 04/29/20 22:30 04/30/20 10:45 Urine Collection Time 24 HRS Urine Total Volume 1000 ML Urine Total Protein mg/dL 30 mg/dL Urine Total Protein 24 Hour 30.4 mg/24hr (< 150) White Blood Count 4.0 K/UL (4.8-10.8) L Red Blood Count 2.94 M/UL (4.20-5.40) L Hemoglobin 8.3 G/DL (12.0-16.0) L Hematocrit 25.6 % (37.0-47.0) L Mean Corpuscular Volume 87 FL (80-99) Mean Corpuscular Hemoglobin 28.1 PG (27.0-31.0) Mean Corpuscular Hemoglobin Concent 32.4 G/DL (32.0-36.0) Red Cell Distribution Width 15.4 % (11.6-14.8) H Platelet Count 346 K/UL (150-450) Mean Platelet Volume 10.4 FL (6.5-10.1) H Neutrophils (%) (Auto) 65.9 % (45.0-75.0) Lymphocytes (%) (Auto) 19.8 % (20.0-45.0) L Monocytes (%) (Auto) 6.5 % (1.0-10.0) Eosinophils (%) (Auto) 0.3 % (0.0-3.0) Basophils (%) (Auto) 7.5 % (0.0-2.0) H Sodium Level 137 MMOL/L (136-145) Potassium Level 4.2 MMOL/L (3.5-5.1) Chloride Level 105 MMOL/L (98-107) Carbon Dioxide Level 26 MMOL/L (21-32) Anion Gap 6 mmol/L (5-15) Blood Urea Nitrogen 21 mg/dL (7-18) H Creatinine 0.8 MG/DL (0.55-1.30) Estimat Glomerular Filtration Rate > 60 mL/min (>60) Glucose Level 107 MG/DL (74-106) H Uric Acid 4.3 MG/DL (2.6-7.2) Calcium Level 8.6 MG/DL (8.5-10.1) Phosphorus Level 3.1 MG/DL (2.5-4.9) Magnesium Level 2.0 MG/DL (1.8-2.4) Total Bilirubin 0.5 MG/DL (0.2-1.0) Aspartate Amino Transf (AST/SGOT) 13 U/L (15-37) L Alanine Aminotransferase (ALT/SGPT) 17 U/L (12-78) Alkaline Phosphatase 99 U/L (46-116) Total Protein 6.2 G/DL (6.4-8.2) L Albumin 2.5 G/DL (3.4-5.0) L Globulin 3.7 g/dL Albumin/Globulin Ratio 0.7 (1.0-2.7) L Plan Problems: (1) Pelvic pain Assessment & Plan: s/p bone marrow biopsy from iliac crest pain from site no bleeding no n/v/f/c labs noted no cellulitis tender on palpation likely from recent procedure no complication from procedure okay for diet dressings prn pending path will follow with recs thank you pain management improved labs stable comfortable pending path (2) Episode of generalized weakness (3) Protein-calorie malnutrition, severe (4) Proteinuria (5) Generalized weakness (6) Failure to thrive (7) Altered mental state (8) Profound anemia (9) Neck pain (10) Hypotension (11) Abnormal LFTs (12) Severe anemia (13) Symptomatic anemia (14) Signs and symptoms of anemia (15) COVID-19 ruled out by laboratory testing (16) ACS (acute coronary syndrome) (17) Pyelonephritis (18) CAD (coronary artery disease) (19) COPD (chronic obstructive pulmonary disease) (20) positional vertigo (21) KELVIN (obstructive sleep apnea) (22) Peripheral neuropathy (23) Myelofibrosis (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
[2020-04-30 16:00] VITALS: BP 112/57
--- NOTE | 2020-04-30 19:17 | Internal Med Progress Note ---
Subjective Date of Service: Apr 30, 2020 Physician Name Roshan Edwards Attending Physician Antonio Adrian MD Current Medications Medications (Trade) Dose Ordered Sig/Escobar Route PRN Reason Start Time Stop Time Status Last Admin Dose Admin Acetaminophen (Tylenol) 650 mg Q6H PRN ORAL Temp >100.5 04/27/20 21:45 05/27/20 21:44 Acetaminophen/ Hydrocodone Bitart ([place] 5/325) 1 tab Q6H PRN ORAL For Pain 04/27/20 21:45 05/04/20 21:44 Amiodarone HCl (Cordarone) 200 mg DAILY ORAL 04/28/20 09:00 07/27/20 08:59 04/28/20 08:03 Digoxin (Lanoxin) 0.125 mg DAILY ORAL 04/28/20 09:00 07/27/20 08:59 04/29/20 08:43 Heparin Sodium (Porcine) (Heparin 5000 units/ml) 5,000 units EVERY 12 HOURS SUBQ 04/28/20 09:00 06/12/20 08:59 04/30/20 09:54 Levothyroxine Sodium (Synthroid) 25 mcg DAILY@0630 ORAL 04/28/20 06:30 05/28/20 06:29 04/30/20 05:07 Pantoprazole (Protonix) 40 mg DAILY ORAL 04/28/20 09:00 05/28/20 08:59 04/30/20 09:53 Allergies: Coded Allergies: No Known Allergies (Unverified , 04/24/18) ROS Limited/Unobtainable: No Constitutional: Reports: weakness HEENT: Reports: no symptoms Cardiovascular: Reports: no symptoms Respiratory: Reports: no symptoms Gastrointestinal/Abdominal: Reports: no symptoms Genitourinary: Reports: no symptoms Neurologic/Psychiatric: Reports: no symptoms Subjective 79 YO F with history of myelofibrosis and polycythema vera admitted with severe anemia. Cover for Int Germán-DR Adrian Objective Last Vital Signs Date Time Temp Pulse Resp B/P (MAP) Pulse Ox O2 Delivery O2 Flow Rate FiO2 04/30/20 16:00 98.2 65 18 112/57 (75) 99 04/30/20 07:49 Room Air Laboratory Tests Test 04/29/20 22:30 04/30/20 10:45 Urine Collection Time 24 HRS Urine Total Volume 1000 ML Urine Total Protein mg/dL 30 mg/dL Urine Total Protein 24 Hour 30.4 mg/24hr (< 150) White Blood Count 4.0 K/UL (4.8-10.8) L Red Blood Count 2.94 M/UL (4.20-5.40) L Hemoglobin 8.3 G/DL (12.0-16.0) L Hematocrit 25.6 % (37.0-47.0) L Mean Corpuscular Volume 87 FL (80-99) Mean Corpuscular Hemoglobin 28.1 PG (27.0-31.0) Mean Corpuscular Hemoglobin Concent 32.4 G/DL (32.0-36.0) Red Cell Distribution Width 15.4 % (11.6-14.8) H Platelet Count 346 K/UL (150-450) Mean Platelet Volume 10.4 FL (6.5-10.1) H Neutrophils (%) (Auto) 65.9 % (45.0-75.0) Lymphocytes (%) (Auto) 19.8 % (20.0-45.0) L Monocytes (%) (Auto) 6.5 % (1.0-10.0) Eosinophils (%) (Auto) 0.3 % (0.0-3.0) Basophils (%) (Auto) 7.5 % (0.0-2.0) H Sodium Level 137 MMOL/L (136-145) Potassium Level 4.2 MMOL/L (3.5-5.1) Chloride Level 105 MMOL/L (98-107) Carbon Dioxide Level 26 MMOL/L (21-32) Anion Gap 6 mmol/L (5-15) Blood Urea Nitrogen 21 mg/dL (7-18) H Creatinine 0.8 MG/DL (0.55-1.30) Estimat Glomerular Filtration Rate > 60 mL/min (>60) Glucose Level 107 MG/DL (74-106) H Uric Acid 4.3 MG/DL (2.6-7.2) Calcium Level 8.6 MG/DL (8.5-10.1) Phosphorus Level 3.1 MG/DL (2.5-4.9) Magnesium Level 2.0 MG/DL (1.8-2.4) Total Bilirubin 0.5 MG/DL (0.2-1.0) Aspartate Amino Transf (AST/SGOT) 13 U/L (15-37) L Alanine Aminotransferase (ALT/SGPT) 17 U/L (12-78) Alkaline Phosphatase 99 U/L (46-116) Total Protein 6.2 G/DL (6.4-8.2) L Albumin 2.5 G/DL (3.4-5.0) L Globulin 3.7 g/dL Albumin/Globulin Ratio 0.7 (1.0-2.7) L Intake and Output 04/29/20 04/30/20 19:00 07:00 Intake Total 400 ml 450 ml Output Total 300 ml 700 ml Balance 100 ml -250 ml Intake Oral 400 ml 200 ml Blood Product 250 ml Output Urine Total 300 ml 700 ml Objective Objective GENERAL: The patient is awake and responsive, chronically ill-appearing and malnutrition. HEAD AND NECK: Pupils are equal and reactive to light. Extraocular movements are intact. Neck was supple. No JVD. LUNGS: Good air entry. No wheezing or rhonchi. Decreased air in bases. HEART: S1, S2. Irregular. No murmur or gallop. Pacemaker in left-sided chest wall was noted. ABDOMEN: Soft, nondistended, nontender. Positive bowel sounds. EXTREMITIES: No cyanosis, clubbing, or edema. NEUROLOGIC: Cranial nerves II to XII grossly intact. The patient is moving all extremities. Gait was not assessed due to the patient's status. Motor is 5/5 in upper extremity and 4/5 in the lower extremity. Assessment/Plan Assessment/Plan Assessment/Plan Assessment/Plan ASSESSMENT: 1. Severe anemia, possible due to myelofibrosis. 2. Paroxysmal atrial fibrillation with prior history of rapid ventricular rate. 3. History of polycythemia vera. 4. JAK2 mutation. 5. Myelodysplastic syndrome. 6. Hypertension. 7. Coronary artery disease. 8. Dyslipidemia. 9. Congestive heart failure. 10. History of right hemothorax, status post of video-assisted thoracotomy and exploration on July 02, 2019. 11. Sick sinus syndrome, status post pacemaker. 12. Failure to thrive. 13. Severe protein-calorie malnutrition. PLAN: Dr. Kaplan recommendation from Hematology-Oncology Dr. Freitas from Cardiology Electrophysiology. monitor laboratory closely. S/P transfusion 1 unit PRBC 04/29/20 follow-up with bone marrow biopsy result. DVT prophylaxis: heparin subcutaneous. Code status is Full Code. PT mobility. Roshan Edwards MD Apr 30, 2020 19:17
[2020-04-30 20:00] VITALS: BP 105/51
[2020-05-01] VITALS: BP 108/53
[2020-05-01 04:00] VITALS: BP 103/56
[2020-05-01] MEDS: Levothyroxine 25mcg tab ORAL SCH (05:53)
--- NOTE | 2020-05-01 06:29 | Hematology/Onc Progress Note ---
Assessment/Plan Assessment/Plan ASSESSMENT AND RECOMMENDATIONS # Polycythemia vera, JAK2+++. In prior was on hydroxyurea in the pat, at this time, continues to be pancytopenic, admitted for further eval --> was in the past jak2+++ --> imaging abd us ordered - Splenomegaly. 3 cm cyst within the spleen probably complex with at least one or 2 septations. Trace right pleural effusion. Gallbladder sludge versus stones. --> hold off hydrea at this time --> BONE MARROW biopsy-->was done 04/28 # Pancytopenia now with initially with anemia of chronic disease due to underlying chronic medical issues, multifactorial, also due to polycythemia vera, hgb 5 on admission --> Anemia workup has been ordered, rule out gi bleed - results noted and cw acd --> No evidence of hemolysis is noted, peripheral smear has been reviewed. --> Hgb goal >7. Transfuse prn --> low threshold for gi evaluation in case has occult --> Hgb trend:4.8-->5.9-->7.7-->7.6->9->7.3 --> wbc 3.8-->4->3.6-->4 --> Patient received an EGD prior admission, by GI at that time that showed gastritis. No varices # Vertigo. --> per neuro as needed --> recs have been noted # Atrial fibrillation with rapid ventricular rate. --> Serial troponin levels will be performeD prior and neg --> per cards # Hypertension. Cont on clonidine # Obstructive sleep apnea. # Coronary artery disease. # Hypercholesteremia. # Congestive heart failure. # Dvt ppx heparin sq The time the the note is entered does not reflect the time the patient was examined. I greatly appreciate the consultation. Subjective HEENT: Denies: no symptoms, eye pain, blurred vision, tearing, double vision, ear pain, ear discharge, nose pain, nose congestion, throat pain, throat swelling, mouth pain, mouth swelling, other Respiratory: Denies: no symptoms, cough, shortness of breath, SOB with excertion, SOB at rest, sputum, wheezing, other Gastrointestinal/Abdominal: Denies: no symptoms, abdomen distended, abdominal pain, black stools, tarry stools, blood in stool, constipated, diarrhea, difficulty swallowing, nausea, poor appetite, poor fluid intake, rectal bleeding, vomiting, other Genitourinary: Denies: no symptoms, burning, discharge, frequency, flank pain, hematuria, incontinence, pain, urgency, other Neurologic/Psychiatric: Denies: no symptoms, anxiety, depressed, emotional problems, headache, numbness, paresthesia, pre-existing deficit, seizure, tingling, tremors, weakness, other Endocrine: Denies: no symptoms, excessive sweating, flushing, intolerance to cold, intolerance to heat, increased hunger, increased thirst, increased urine, unexplained weight gain, unexplained weight loss, other Hematologic/Lymphatic: Denies: no symptoms, anemia, easy bleeding, easy bruising, adenopathy, other Allergies: Coded Allergies: No Known Allergies (Unverified , 04/24/18) Subjective 04/29 bone marrow biopsy was done yesterday, labs noted, pending path report 05/01 meds noted, labs reviewed, destiny rn, is comfortable Objective Objective Current Medications Medications (Trade) Dose Ordered Sig/Escobar Route PRN Reason Start Time Stop Time Status Last Admin Dose Admin Acetaminophen (Tylenol) 650 mg Q6H PRN ORAL Temp >100.5 04/27/20 21:45 05/27/20 21:44 Acetaminophen/ Hydrocodone Bitart ([place] 5/325) 1 tab Q6H PRN ORAL For Pain 04/27/20 21:45 05/04/20 21:44 Amiodarone HCl (Cordarone) 200 mg DAILY ORAL 04/28/20 09:00 07/27/20 08:59 04/28/20 08:03 Digoxin (Lanoxin) 0.125 mg DAILY ORAL 04/28/20 09:00 07/27/20 08:59 04/29/20 08:43 Heparin Sodium (Porcine) (Heparin 5000 units/ml) 5,000 units EVERY 12 HOURS SUBQ 04/28/20 09:00 06/12/20 08:59 04/30/20 20:47 Levothyroxine Sodium (Synthroid) 25 mcg DAILY@0630 ORAL 04/28/20 06:30 05/28/20 06:29 05/01/20 05:53 Pantoprazole (Protonix) 40 mg DAILY ORAL 04/28/20 09:00 05/28/20 08:59 04/30/20 09:53 Last 24 Hour Vital Signs Date Time Temp Pulse Resp B/P (MAP) Pulse Ox O2 Delivery O2 Flow Rate FiO2 05/01/20 04:00 97.6 64 16 103/56 (72) 97 05/01/20 00:00 98.0 62 16 108/53 (71) 98 04/30/20 21:00 Room Air 04/30/20 20:00 97.8 66 18 105/51 (69) 98 04/30/20 16:00 98.2 65 18 112/57 (75) 99 04/30/20 12:00 98.3 60 18 101/51 (68) 99 04/30/20 09:00 58 04/30/20 08:00 97.2 57 18 108/58 (75) 99 04/30/20 07:49 Room Air 04/30/20 04:00 97.7 62 18 115/58 (77) 99 04/29/20 23:47 98.0 63 18 105/58 (74) 98 04/29/20 20:18 Room Air 04/29/20 20:00 97.8 68 18 109/53 (71) 95 04/29/20 16:40 97 04/29/20 16:00 99.5 67 18 107/56 (73) 04/29/20 11:54 97.9 83 18 108/55 (72) 95 04/29/20 09:00 Room Air 04/29/20 08:43 65 04/29/20 08:00 98.6 65 18 101/55 (70) 96 Intake and Output 0 04/30/20 05/01/20 19:00 07:00 Intake Total 200 ml 120 ml Output Total 650 ml 200 ml Balance -450 ml -80 ml Intake Oral 200 ml 120 ml Output Urine Total 650 ml 200 ml # Voids 1 # Bowel Movements 1 1 Labs Test 04/29/20 22:30 04/30/20 10:45 Urine Collection Time 24 HRS Urine Total Volume 1000 ML Urine Total Protein mg/dL 30 mg/dL Urine Total Protein 24 Hour 30.4 mg/24hr (< 150) White Blood Count 4.0 K/UL (4.8-10.8) Red Blood Count 2.94 M/UL (4.20-5.40) Hemoglobin 8.3 G/DL (12.0-16.0) Hematocrit 25.6 % (37.0-47.0) Mean Corpuscular Volume 87 FL (80-99) Mean Corpuscular Hemoglobin 28.1 PG (27.0-31.0) Mean Corpuscular Hemoglobin Concent 32.4 G/DL (32.0-36.0) Red Cell Distribution Width 15.4 % (11.6-14.8) Platelet Count 346 K/UL (150-450) Mean Platelet Volume 10.4 FL (6.5-10.1) Neutrophils (%) (Auto) 65.9 % (45.0-75.0) Lymphocytes (%) (Auto) 19.8 % (20.0-45.0) Monocytes (%) (Auto) 6.5 % (1.0-10.0) Eosinophils (%) (Auto) 0.3 % (0.0-3.0) Basophils (%) (Auto) 7.5 % (0.0-2.0) Sodium Level 137 MMOL/L (136-145) Potassium Level 4.2 MMOL/L (3.5-5.1) Chloride Level 105 MMOL/L (98-107) Carbon Dioxide Level 26 MMOL/L (21-32) Anion Gap 6 mmol/L (5-15) Blood Urea Nitrogen 21 mg/dL (7-18) Creatinine 0.8 MG/DL (0.55-1.30) Estimat Glomerular Filtration Rate > 60 mL/min (>60) Glucose Level 107 MG/DL (74-106) Uric Acid 4.3 MG/DL (2.6-7.2) Calcium Level 8.6 MG/DL (8.5-10.1) Phosphorus Level 3.1 MG/DL (2.5-4.9) Magnesium Level 2.0 MG/DL (1.8-2.4) Total Bilirubin 0.5 MG/DL (0.2-1.0) Aspartate Amino Transf (AST/SGOT) 13 U/L (15-37) Alanine Aminotransferase (ALT/SGPT) 17 U/L (12-78) Alkaline Phosphatase 99 U/L (46-116) Total Protein 6.2 G/DL (6.4-8.2) Albumin 2.5 G/DL (3.4-5.0) Globulin 3.7 g/dL Albumin/Globulin Ratio 0.7 (1.0-2.7) Micro Microbiology Date/Time Source Procedure Growth Status 04/30/20 12:00 Stool Clostridium difficile Toxin Assay - Final Complete Height (Feet): 4 Height (Inches): 10.00 Weight (Pounds): 100 Objective Physical Exam Vitals: noted General: thin, other - frail, Chronically Ill Eyes: bilateral eye PERRL, bilateral eye EOMI ENT: moist mucus membranes - slightly dry Neck: full range of motion, no bony tend, other Respiratory: chest non-tender- Pacemaker left Cardiovascular: regular rate, rhythm Gastrointestinal: normal bowel sounds Genitourinary: no CVA tenderness Musculoskeletal: back normal, no calf tenderness, other - kyphosis Neurologic: alert, 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
[2020-05-01 08:00] VITALS: BP 104/54
[2020-05-01] MEDS: Digoxin 0.125mg tab ORAL SCH (08:23)
[2020-05-01] MEDS: Amiodarone 200mg tab ORAL SCH (08:23)
[2020-05-01] MEDS: Heparin 5000 units/ml inj SUBQ SCH ×2 (08:25→21:26)
[2020-05-01 09:40] LABS: HEMOGLOBIN 7.5 G/DL (12.0-16.0); MEAN CORPUSCULAR VOLUME 87 FL (80-99); PLATELET COUNT 326 K/UL (150-450); RED BLOOD COUNT 2.65 M/UL (4.20-5.40); RED CELL DISTRIBUTION WIDTH 15.3 % (11.6-14.8); WHITE BLOOD COUNT 3.9 K/UL (4.8-10.8)
[2020-05-01 09:43] LABS: ALANINE AMINOTRANSFERASE 16 U/L (12-78); ALBUMIN 2.4 G/DL (3.4-5.0); ALBUMIN/GLOBULIN RATIO 0.7 (1.0-2.7); ALKALINE PHOSPHATASE 91 U/L (46-116); ANION GAP 6 mmol/L (5-15); ASPARTATE AMINO TRANSFERASE 15 U/L (15-37); BILIRUBIN,TOTAL 0.5 MG/DL (0.2-1.0); BLOOD UREA NITROGEN 20 mg/dL (7-18); CALCIUM 8.6 MG/DL (8.5-10.1); CARBON DIOXIDE 28 MMOL/L (21-32); CHLORIDE 106 MMOL/L (98-107); CREATININE 0.8 MG/DL (0.55-1.30); POTASSIUM 3.9 MMOL/L (3.5-5.1); SODIUM 139 MMOL/L (136-145)
--- NOTE | 2020-05-01 10:28 | Nephrology Progress Note ---
Assessment/Plan Problem List: (1) Proteinuria (2) Protein-calorie malnutrition, severe (3) Anemia Assessment Symptomatic anemia Hypotension, periodic Proteinuria, hypoalbuminemia Encephalopathy Plan May 01: Labs reviewed. Renal parameters stable. Hemoglobin lower. Continue per consultants. April 30: Remains weak. Today's can panel pending. Continue per consultants. 24-hour urine for protein unremarkable. Hypoalbuminemia mainly nutritional. April 29: Patient weak. 24-hour urine for protein pending. No labs drawn today. Continue per consultants. Transfusion per hematology Keep the blood pressure and heart rate in check 24-hour urine collection for total protein Per orders Subjective ROS Limited/Unobtainable: No Objective Objective Last 24 Hour Vital Signs Date Time Temp Pulse Resp B/P (MAP) Pulse Ox O2 Delivery O2 Flow Rate FiO2 05/01/20 09:00 Room Air 05/01/20 08:23 64 05/01/20 08:00 97.8 65 18 104/54 (71) 98 05/01/20 04:00 97.6 64 16 103/56 (72) 97 05/01/20 00:00 98.0 62 16 108/53 (71) 98 04/30/20 21:00 Room Air 04/30/20 20:00 97.8 66 18 105/51 (69) 98 04/30/20 16:00 98.2 65 18 112/57 (75) 99 04/30/20 12:00 98.3 60 18 101/51 (68) 99 Intake and Output 04/30/20 05/01/20 19:00 07:00 Intake Total 200 ml 120 ml Output Total 650 ml 200 ml Balance -450 ml -80 ml Intake Oral 200 ml 120 ml Output Urine Total 650 ml 200 ml # Voids 1 # Bowel Movements 1 1 Current Medications Medications (Trade) Dose Ordered Sig/Escobar Route PRN Reason Start Time Stop Time Status Last Admin Dose Admin Acetaminophen (Tylenol) 650 mg Q6H PRN ORAL Temp >100.5 04/27/20 21:45 05/27/20 21:44 Acetaminophen/ Hydrocodone Bitart ([place] 5/325) 1 tab Q6H PRN ORAL For Pain 04/27/20 21:45 05/04/20 21:44 Amiodarone HCl (Cordarone) 200 mg DAILY ORAL 04/28/20 09:00 07/27/20 08:59 05/01/20 08:23 Digoxin (Lanoxin) 0.125 mg DAILY ORAL 04/28/20 09:00 07/27/20 08:59 05/01/20 08:23 Heparin Sodium (Porcine) (Heparin 5000 units/ml) 5,000 units EVERY 12 HOURS SUBQ 04/28/20 09:00 06/12/20 08:59 05/01/20 08:25 Levothyroxine Sodium (Synthroid) 25 mcg DAILY@0630 ORAL 04/28/20 06:30 05/28/20 06:29 05/01/20 05:53 Pantoprazole (Protonix) 40 mg DAILY ORAL 04/28/20 09:00 05/28/20 08:59 05/01/20 08:24 Laboratory Tests 04/30/20 10:45: White Blood Count 4.0L, Red Blood Count 2.94L, Hemoglobin 8.3L, Hematocrit 25.6L , Mean Corpuscular Volume 87, Mean Corpuscular Hemoglobin 28.1, Mean Corpuscular Hemoglobin Concent 32.4, Red Cell Distribution Width 15.4H, Platelet Count 346, Mean Platelet Volume 10.4H, Neutrophils (%) (Auto) 65.9, Lymphocytes (%) (Auto) 19.8L, Monocytes (%) (Auto) 6.5, Eosinophils (%) (Auto) 0.3, Basophils (%) (A uto) 7.5H, Sodium Level 137, Potassium Level 4.2, Chloride Level 105, Carbon Dioxide Level 26, Anion Gap 6, Blood Urea Nitrogen 21H, Creatinine 0.8, Estimat Glomerular Filtration Rate > 60, Glucose Level 107H, Uric Acid 4.3, Calcium Level 8.6, Phosphorus Level 3.1, Magnesium Level 2.0, Total Bilirubin 0.5, Aspartate Amino Transf (AST/SGOT) 13L, Alanine Aminotransferase (ALT/SGPT) 17, Alkaline Phosphatase 99, Total Protein 6.2L, Albumin 2.5L, Globulin 3.7, Albumin/Globulin Ratio 0.7L 05/01/20 09:00: White Blood Count 3.9L, Red Blood Count 2.65L, Hemoglobin 7.5L, Hematocrit 23.0L , Mean Corpuscular Volume 87, Mean Corpuscular Hemoglobin 28.5, Mean Corpuscular Hemoglobin Concent 32.7, Red Cell Distribution Width 15.3H, Platelet Count 326, Mean Platelet Volume 10.8H, Neutrophils (%) (Auto) , Lymphocytes (%) (Auto) , Monocytes (%) (Auto) , Eosinophils (%) (Auto) , Basophils (%) (Auto) , Sodium Level 139, Potassium Level 3.9, Chloride Level 106, Carbon Dioxide Level 28, Anion Gap 6, Blood Urea Nitrogen 20H, Creatinine 0.8, Estimat Glomerular Filtration Rate > 60, Glucose Level 122H, Calcium Level 8.6, Total Bilirubin 0.5, Aspartate Amino Transf (AST/SGOT) 15, Alanine Aminotransferase (ALT/SGPT) 16, Alkaline Phosphatase 91, Total Protein 5.9L, Albumin 2.4L, Globulin 3.5, Albumin/Globulin Ratio 0.7L, Neutrophils % (Manual) [Pending], Lymphocytes % (Manual) [Pending], Platelet Estimate [Pending], Platelet Morphology [Pending] Height (Feet): 4 Height (Inches): 10.00 Weight (Pounds): 100 General Appearance: no apparent distress Cardiovascular: normal rate Respiratory/Chest: decreased breath sounds Objective No change Sudhakar Griggs MD May 01, 2020 10:28
[2020-05-01 12:00] VITALS: BP 124/60
--- NOTE | 2020-05-01 12:50 | Surgery Progress Note ---
Surgery Progress Note Subjective Symptoms: improved, tolerating diet, passing flatus, pain decreased Objective Last 24 Hour Vital Signs Date Time Temp Pulse Resp B/P (MAP) Pulse Ox O2 Delivery O2 Flow Rate FiO2 05/01/20 10:40 Room Air 05/01/20 09:00 Room Air 05/01/20 08:23 64 05/01/20 08:00 97.8 65 18 104/54 (71) 98 05/01/20 04:00 97.6 64 16 103/56 (72) 97 05/01/20 00:00 98.0 62 16 108/53 (71) 98 04/30/20 21:00 Room Air 04/30/20 20:00 97.8 66 18 105/51 (69) 98 04/30/20 16:00 98.2 65 18 112/57 (75) 99 I&O Intake and Output 04/30/20 05/01/20 19:00 07:00 Intake Total 200 ml 120 ml Output Total 650 ml 200 ml Balance -450 ml -80 ml Intake Oral 200 ml 120 ml Output Urine Total 650 ml 200 ml # Voids 1 # Bowel Movements 1 1 Dressing: dry Wound: clean Cardiovascular: RSR Respiratory: clear Abdomen: soft, non-tender, present bowel sounds, non-distended Extremities: no edema, no tenderness, no cyanosis Laboratory Tests Test 05/01/20 09:00 White Blood Count 3.9 K/UL (4.8-10.8) L Red Blood Count 2.65 M/UL (4.20-5.40) L Hemoglobin 7.5 G/DL (12.0-16.0) L Hematocrit 23.0 % (37.0-47.0) L Mean Corpuscular Volume 87 FL (80-99) Mean Corpuscular Hemoglobin 28.5 PG (27.0-31.0) Mean Corpuscular Hemoglobin Concent 32.7 G/DL (32.0-36.0) Red Cell Distribution Width 15.3 % (11.6-14.8) H Platelet Count 326 K/UL (150-450) Mean Platelet Volume 10.8 FL (6.5-10.1) H Neutrophils (%) (Auto) % (45.0-75.0) Lymphocytes (%) (Auto) % (20.0-45.0) Monocytes (%) (Auto) % (1.0-10.0) Eosinophils (%) (Auto) % (0.0-3.0) Basophils (%) (Auto) % (0.0-2.0) Differential Total Cells Counted 100 Neutrophils % (Manual) 61 % (45-75) Lymphocytes % (Manual) 26 % (20-45) Monocytes % (Manual) 7 % (1-10) Eosinophils % (Manual) 0 % (0-3) Basophils % (Manual) 6 % (0-2) H Band Neutrophils 0 % (0-8) Nucleated Red Blood Cells 1 /100 WBC Platelet Estimate Adequate Platelet Morphology Normal Giant Platelets Occasional Hypochromasia 1+ Anisocytosis 1+ Sodium Level 139 MMOL/L (136-145) Potassium Level 3.9 MMOL/L (3.5-5.1) Chloride Level 106 MMOL/L (98-107) Carbon Dioxide Level 28 MMOL/L (21-32) Anion Gap 6 mmol/L (5-15) Blood Urea Nitrogen 20 mg/dL (7-18) H Creatinine 0.8 MG/DL (0.55-1.30) Estimat Glomerular Filtration Rate > 60 mL/min (>60) Glucose Level 122 MG/DL (74-106) H Calcium Level 8.6 MG/DL (8.5-10.1) Total Bilirubin 0.5 MG/DL (0.2-1.0) Aspartate Amino Transf (AST/SGOT) 15 U/L (15-37) Alanine Aminotransferase (ALT/SGPT) 16 U/L (12-78) Alkaline Phosphatase 91 U/L (46-116) Total Protein 5.9 G/DL (6.4-8.2) L Albumin 2.4 G/DL (3.4-5.0) L Globulin 3.5 g/dL Albumin/Globulin Ratio 0.7 (1.0-2.7) L Plan Problems: (1) Pelvic pain Assessment & Plan: s/p bone marrow biopsy from iliac crest pain from site no bleeding no n/v/f/c labs noted no cellulitis tender on palpation likely from recent procedure no complication from procedure okay for diet dressings prn pending path will follow with recs thank you pain management improved labs stable comfortable pending path (2) Episode of generalized weakness (3) Protein-calorie malnutrition, severe (4) Proteinuria (5) Generalized weakness (6) Failure to thrive (7) Altered mental state (8) Profound anemia (9) Neck pain (10) Hypotension (11) Abnormal LFTs (12) Severe anemia (13) Symptomatic anemia (14) Signs and symptoms of anemia (15) COVID-19 ruled out by laboratory testing (16) ACS (acute coronary syndrome) (17) Pyelonephritis (18) CAD (coronary artery disease) (19) COPD (chronic obstructive pulmonary disease) (20) positional vertigo (21) KELVIN (obstructive sleep apnea) (22) Peripheral neuropathy (23) Myelofibrosis (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
[2020-05-01] MEDS ORDERED: Tubing IV Blood Pump IV ONE (14:08)
[2020-05-01 16:00] VITALS: BP 99/46
--- NOTE | 2020-05-01 16:09 | Internal Med Progress Note ---
Subjective Date of Service: May 01, 2020 Physician Name Edwards,Roshan Attending Physician Antonio Adrian MD Current Medications Medications (Trade) Dose Ordered Sig/Escobar Route PRN Reason Start Time Stop Time Status Last Admin Dose Admin Acetaminophen (Tylenol) 650 mg Q6H PRN ORAL Temp >100.5 04/27/20 21:45 05/27/20 21:44 Acetaminophen/ Hydrocodone Bitart ([place] 5/325) 1 tab Q6H PRN ORAL For Pain 04/27/20 21:45 05/04/20 21:44 Amiodarone HCl (Cordarone) 200 mg DAILY ORAL 04/28/20 09:00 07/27/20 08:59 05/01/20 08:23 Digoxin (Lanoxin) 0.125 mg DAILY ORAL 04/28/20 09:00 07/27/20 08:59 05/01/20 08:23 Heparin Sodium (Porcine) (Heparin 5000 units/ml) 5,000 units EVERY 12 HOURS SUBQ 04/28/20 09:00 06/12/20 08:59 05/01/20 08:25 Levothyroxine Sodium (Synthroid) 25 mcg DAILY@0630 ORAL 04/28/20 06:30 05/28/20 06:29 05/01/20 05:53 Pantoprazole (Protonix) 40 mg DAILY ORAL 04/28/20 09:00 05/28/20 08:59 05/01/20 08:24 Allergies: Coded Allergies: No Known Allergies (Unverified , 04/24/18) ROS Limited/Unobtainable: Yes Subjective 79 YO F with history of myelofibrosis and polycythema vera admitted with severe anemia. Cover for Int Med-DR Adrian Objective Last Vital Signs Date Time Temp Pulse Resp B/P (MAP) Pulse Ox O2 Delivery O2 Flow Rate FiO2 05/01/20 12:00 98.2 67 18 124/60 (81) 98 05/01/20 10:40 Room Air Laboratory Tests Test 05/01/20 09:00 White Blood Count 3.9 K/UL (4.8-10.8) L Red Blood Count 2.65 M/UL (4.20-5.40) L Hemoglobin 7.5 G/DL (12.0-16.0) L Hematocrit 23.0 % (37.0-47.0) L Mean Corpuscular Volume 87 FL (80-99) Mean Corpuscular Hemoglobin 28.5 PG (27.0-31.0) Mean Corpuscular Hemoglobin Concent 32.7 G/DL (32.0-36.0) Red Cell Distribution Width 15.3 % (11.6-14.8) H Platelet Count 326 K/UL (150-450) Mean Platelet Volume 10.8 FL (6.5-10.1) H Neutrophils (%) (Auto) % (45.0-75.0) Lymphocytes (%) (Auto) % (20.0-45.0) Monocytes (%) (Auto) % (1.0-10.0) Eosinophils (%) (Auto) % (0.0-3.0) Basophils (%) (Auto) % (0.0-2.0) Differential Total Cells Counted 100 Neutrophils % (Manual) 61 % (45-75) Lymphocytes % (Manual) 26 % (20-45) Monocytes % (Manual) 7 % (1-10) Eosinophils % (Manual) 0 % (0-3) Basophils % (Manual) 6 % (0-2) H Band Neutrophils 0 % (0-8) Nucleated Red Blood Cells 1 /100 WBC Platelet Estimate Adequate Platelet Morphology Normal Giant Platelets Occasional Hypochromasia 1+ Anisocytosis 1+ Sodium Level 139 MMOL/L (136-145) Potassium Level 3.9 MMOL/L (3.5-5.1) Chloride Level 106 MMOL/L (98-107) Carbon Dioxide Level 28 MMOL/L (21-32) Anion Gap 6 mmol/L (5-15) Blood Urea Nitrogen 20 mg/dL (7-18) H Creatinine 0.8 MG/DL (0.55-1.30) Estimat Glomerular Filtration Rate > 60 mL/min (>60) Glucose Level 122 MG/DL (74-106) H Calcium Level 8.6 MG/DL (8.5-10.1) Total Bilirubin 0.5 MG/DL (0.2-1.0) Aspartate Amino Transf (AST/SGOT) 15 U/L (15-37) Alanine Aminotransferase (ALT/SGPT) 16 U/L (12-78) Alkaline Phosphatase 91 U/L (46-116) Total Protein 5.9 G/DL (6.4-8.2) L Albumin 2.4 G/DL (3.4-5.0) L Globulin 3.5 g/dL Albumin/Globulin Ratio 0.7 (1.0-2.7) L Microbiology Date/Time Source Procedure Growth Status 04/30/20 12:00 Stool Clostridium difficile Toxin Assay - Final Complete Intake and Output 04/30/20 05/01/20 19:00 07:00 Intake Total 200 ml 120 ml Output Total 650 ml 200 ml Balance -450 ml -80 ml Intake Oral 200 ml 120 ml Output Urine Total 650 ml 200 ml # Voids 1 # Bowel Movements 1 1 Objective Objective GENERAL: The patient is awake and responsive, chronically ill-appearing and malnutrition. HEAD AND NECK: Pupils are equal and reactive to light. Extraocular movements are intact. Neck was supple. No JVD. LUNGS: Good air entry. No wheezing or rhonchi. Decreased air in bases. HEART: S1, S2. Irregular. No murmur or gallop. Pacemaker in left-sided chest wall was noted. ABDOMEN: Soft, nondistended, nontender. Positive bowel sounds. EXTREMITIES: No cyanosis, clubbing, or edema. NEUROLOGIC: Cranial nerves II to XII grossly intact. The patient is moving all extremities. Gait was not assessed due to the patient's status. Motor is 5/5 in upper extremity and 4/5 in the lower extremity. Assessment/Plan Assessment/Plan Assessment/Plan Assessment/Plan ASSESSMENT: 1. Severe anemia, possible due to myelofibrosis. 2. Paroxysmal atrial fibrillation with prior history of rapid ventricular rate. 3. History of polycythemia vera. 4. JAK2 mutation. 5. Myelodysplastic syndrome. 6. Hypertension. 7. Coronary artery disease. 8. Dyslipidemia. 9. Congestive heart failure. 10. History of right hemothorax, status post of video-assisted thoracotomy and exploration on July 02, 2019. 11. Sick sinus syndrome, status post pacemaker. 12. Failure to thrive. 13. Severe protein-calorie malnutrition. PLAN: Dr. Kaplan recommendation from Hematology-Oncology Dr. Freitas from Cardiology Electrophysiology. monitor laboratory closely. S/P transfusion 1 unit PRBC 04/29/20 S/P bone marrow biopsy 04/28/20-await results. DVT prophylaxis: heparin subcutaneous. Code status is Full Code. PT mobility. Roshan Edwards MD May 01, 2020 16:09
[2020-05-01 20:00] VITALS: BP 101/54
[2020-05-02] VITALS: BP 103/65
[2020-05-02 04:00] VITALS: BP 89/56
[2020-05-02 04:46] VITALS: BP 100/70
[2020-05-02] MEDS: Levothyroxine 25mcg tab ORAL SCH (05:38)
[2020-05-02 05:57] LABS: BASOPHILS % (AUTO) 6.5 % (0.0-2.0); EOSINOPHILS % (AUTO) 0.4 % (0.0-3.0); HEMATOCRIT 27.3 % (37.0-47.0); HEMOGLOBIN 8.9 G/DL (12.0-16.0); LYMPHOCYTES % (AUTO) 24.9 % (20.0-45.0); MEAN CORPUSCULAR VOLUME 86 FL (80-99); NEUTROPHILS % (AUTO) 61.2 % (45.0-75.0); PLATELET COUNT 326 K/UL (150-450); RED BLOOD COUNT 3.17 M/UL (4.20-5.40); RED CELL DISTRIBUTION WIDTH 15.3 % (11.6-14.8); WHITE BLOOD COUNT 4.4 K/UL (4.8-10.8)
[2020-05-02 06:17] LABS: ALANINE AMINOTRANSFERASE 13 U/L (12-78); ALBUMIN 2.4 G/DL (3.4-5.0); ALBUMIN/GLOBULIN RATIO 0.7 (1.0-2.7); ALKALINE PHOSPHATASE 98 U/L (46-116); ANION GAP 9 mmol/L (5-15); ASPARTATE AMINO TRANSFERASE 12 U/L (15-37); BILIRUBIN,TOTAL 0.4 MG/DL (0.2-1.0); BLOOD UREA NITROGEN 20 mg/dL (7-18); CALCIUM 8.4 MG/DL (8.5-10.1); CARBON DIOXIDE 26 MMOL/L (21-32); CHLORIDE 107 MMOL/L (98-107); CREATININE 0.8 MG/DL (0.55-1.30); SODIUM 141 MMOL/L (136-145)
--- NOTE | 2020-05-02 06:57 | Hematology/Onc Progress Note ---
Assessment/Plan Assessment/Plan ASSESSMENT AND RECOMMENDATIONS # Polycythemia vera, JAK2+++. In prior was on hydroxyurea in the pat, at this time, continues to be pancytopenic, admitted for further eval --> was in the past jak2+++ --> imaging abd us ordered - Splenomegaly. 3 cm cyst within the spleen probably complex with at least one or 2 septations. Trace right pleural effusion. Gallbladder sludge versus stones. --> hold off hydrea at this time --> BONE MARROW biopsy-->was done 04/28-->6.3% myeloblasts noted # Pancytopenia now with initially with anemia of chronic disease due to underlying chronic medical issues, multifactorial, also due to polycythemia vera, hgb 5 on admission --> Anemia workup has been ordered, rule out gi bleed - results noted and cw acd --> No evidence of hemolysis is noted, peripheral smear has been reviewed. --> Hgb goal >7. Transfuse prn --> low threshold for gi evaluation in case has occult --> Hgb trend:4.8-->5.9-->7.7-->7.6->9->7.3-->8.9 --> wbc 3.8-->4->3.6-->4-->4.4 --> Patient received an EGD prior admission, by GI at that time that showed gastritis. No varices # Vertigo. --> per neuro as needed --> recs have been noted # Atrial fibrillation with rapid ventricular rate. --> Serial troponin levels will be performeD prior and neg --> per cards # Hypertension. Cont on clonidine # Obstructive sleep apnea. # Coronary artery disease. # Hypercholesteremia. # Congestive heart failure. # Dvt ppx heparin sq The time the the note is entered does not reflect the time the patient was examined. I greatly appreciate the consultation. Subjective Constitutional: Denies: no symptoms, chills, fever, malaise, weakness, other HEENT: Denies: no symptoms, eye pain, blurred vision, tearing, double vision, ear pain, ear discharge, nose pain, nose congestion, throat pain, throat swelling, mouth pain, mouth swelling, other Cardiovascular: Denies: no symptoms, chest pain, edema, irregular heart rate, lightheadedness, palpitations, syncope, other Gastrointestinal/Abdominal: Denies: no symptoms, abdomen distended, abdominal pain, black stools, tarry stools, blood in stool, constipated, diarrhea, difficu lty swallowing, nausea, poor appetite, poor fluid intake, rectal bleeding, vomiting, other Genitourinary: Denies: no symptoms, burning, discharge, frequency, flank pain, hematuria, incontinence, pain, urgency, other Neurologic/Psychiatric: Denies: no symptoms, anxiety, depressed, emotional problems, headache, numbness, paresthesia, pre-existing deficit, seizure, tingling, tremors, weakness, other Endocrine: Denies: no symptoms, excessive sweating, flushing, intolerance to cold, intolerance to heat, increased hunger, increased thirst, increased urine, unexplained weight gain, unexplained weight loss, other Allergies: Coded Allergies: No Known Allergies (Unverified , 04/24/18) Subjective 04/29 bone marrow biopsy was done yesterday, labs noted, pending path report 05/01 meds noted, labs reviewed, destiny rn, is comfortable 05/02 labs reviewed, meds noted, path noted with 6.3% myeloblasts Objective Objective Current Medications Medications (Trade) Dose Ordered Sig/Escobar Route PRN Reason Start Time Stop Time Status Last Admin Dose Admin Acetaminophen (Tylenol) 650 mg Q6H PRN ORAL Temp >100.5 04/27/20 21:45 05/27/20 21:44 Acetaminophen/ Hydrocodone Bitart ([place] 5/325) 1 tab Q6H PRN ORAL For Pain 04/27/20 21:45 05/04/20 21:44 Amiodarone HCl (Cordarone) 200 mg DAILY ORAL 04/28/20 09:00 07/27/20 08:59 05/01/20 08:23 Digoxin (Lanoxin) 0.125 mg DAILY ORAL 04/28/20 09:00 07/27/20 08:59 05/01/20 08:23 Heparin Sodium (Porcine) (Heparin 5000 units/ml) 5,000 units EVERY 12 HOURS SUBQ 04/28/20 09:00 06/12/20 08:59 05/01/20 21:26 Levothyroxine Sodium (Synthroid) 25 mcg DAILY@0630 ORAL 04/28/20 06:30 05/28/20 06:29 05/02/20 05:38 Pantoprazole (Protonix) 40 mg DAILY ORAL 04/28/20 09:00 05/28/20 08:59 05/01/20 08:24 Last 24 Hour Vital Signs Date Time Temp Pulse Resp B/P (MAP) Pulse Ox O2 Delivery O2 Flow Rate FiO2 05/02/20 04:46 97 100/70 (80) 05/02/20 04:00 97.9 96 16 89/56 (67) 96 05/02/20 00:00 97.1 96 18 103/65 (78) 97 05/01/20 21:00 Room Air 05/01/20 20:00 98.2 71 17 101/54 (70) 97 05/01/20 16:00 97.9 68 18 99/46 (63) 97 05/01/20 12:00 98.2 67 18 124/60 (81) 98 05/01/20 10:40 Room Air 05/01/20 09:00 Room Air 05/01/20 08:23 64 05/01/20 08:00 97.8 65 18 104/54 (71) 98 05/01/20 04:00 97.6 64 16 103/56 (72) 97 05/01/20 00:00 98.0 62 16 108/53 (71) 98 04/30/20 21:00 Room Air 04/30/20 20:00 97.8 66 18 105/51 (69) 98 04/30/20 16:00 98.2 65 18 112/57 (75) 99 04/30/20 12:00 98.3 60 18 101/51 (68) 99 04/30/20 09:00 58 04/30/20 08:00 97.2 57 18 108/58 (75) 99 04/30/20 07:49 Room Air Intake and Output 05/01/20 05/02/20 19:00 07:00 Intake Total 480 ml 300 ml Output Total 800 ml 400 ml Balance -320 ml -100 ml Intake Oral 480 ml 300 ml Output Urine Total 800 ml 400 ml # Bowel Movements 6 1 Labs Test 04/29/20 22:30 04/30/20 10:45 05/01/20 09:00 05/02/20 04:45 Urine Collection Time 24 HRS Urine Total Volume 1000 ML Urine Total Protein mg/dL 30 mg/dL Urine Total Protein 24 Hour 30.4 mg/24hr (< 150) White Blood Count 4.0 K/UL (4.8-10.8) 3.9 K/UL (4.8-10.8) 4.4 K/UL (4.8-10.8) Red Blood Count 2.94 M/UL (4.20-5.40) 2.65 M/UL (4.20-5.40) 3.17 M/UL (4.20-5.40) Hemoglobin 8.3 G/DL (12.0-16.0) 7.5 G/DL (12.0-16.0) 8.9 G/DL (12.0-16.0) Hematocrit 25.6 % (37.0-47.0) 23.0 % (37.0-47.0) 27.3 % (37.0-47.0) Mean Corpuscular Volume 87 FL (80-99) 87 FL (80-99) 86 FL (80-99) Mean Corpuscular Hemoglobin 28.1 PG (27.0-31.0) 28.5 PG (27.0-31.0) 28.2 PG (27.0-31.0) Mean Corpuscular Hemoglobin Concent 32.4 G/DL (32.0-36.0) 32.7 G/DL (32.0-36.0) 32.7 G/DL (32.0-36.0) Red Cell Distribution Width 15.4 % (11.6-14.8) 15.3 % (11.6-14.8) 15.3 % (11.6-14.8) Platelet Count 346 K/UL (150-450) 326 K/UL (150-450) 326 K/UL (150-450) Mean Platelet Volume 10.4 FL (6.5-10.1) 10.8 FL (6.5-10.1) 11.2 FL (6.5-10.1) Neutrophils (%) (Auto) 65.9 % (45.0-75.0) % (45.0-75.0) 61.2 % (45.0-75.0) Lymphocytes (%) (Auto) 19.8 % (20.0-45.0) % (20.0-45.0) 24.9 % (20.0-45.0) Monocytes (%) (Auto) 6.5 % (1.0-10.0) % (1.0-10.0) 7.0 % (1.0-10.0) Eosinophils (%) (Auto) 0.3 % (0.0-3.0) % (0.0-3.0) 0.4 % (0.0-3.0) Basophils (%) (Auto) 7.5 % (0.0-2.0) % (0.0-2.0) 6.5 % (0.0-2.0) Sodium Level 137 MMOL/L (136-145) 139 MMOL/L (136-145) 141 MMOL/L (136-145) Potassium Level 4.2 MMOL/L (3.5-5.1) 3.9 MMOL/L (3.5-5.1) 4.0 MMOL/L (3.5-5.1) Chloride Level 105 MMOL/L (98-107) 106 MMOL/L (98-107) 107 MMOL/L (98-107) Carbon Dioxide Level 26 MMOL/L (21-32) 28 MMOL/L (21-32) 26 MMOL/L (21-32) Anion Gap 6 mmol/L (5-15) 6 mmol/L (5-15) 9 mmol/L (5-15) Blood Urea Nitrogen 21 mg/dL (7-18) 20 mg/dL (7-18) 20 mg/dL (7-18) Creatinine 0.8 MG/DL (0.55-1.30) 0.8 MG/DL (0.55-1.30) 0.8 MG/DL (0.55-1.30) Estimat Glomerular Filtration Rate > 60 mL/min (>60) > 60 mL/min (>60) > 60 mL/min (>60) Glucose Level 107 MG/DL (74-106) 122 MG/DL (74-106) 89 MG/DL (74-106) Uric Acid 4.3 MG/DL (2.6-7.2) Calcium Level 8.6 MG/DL (8.5-10.1) 8.6 MG/DL (8.5-10.1) 8.4 MG/DL (8.5-10.1) Phosphorus Level 3.1 MG/DL (2.5-4.9) Magnesium Level 2.0 MG/DL (1.8-2.4) Total Bilirubin 0.5 MG/DL (0.2-1.0) 0.5 MG/DL (0.2-1.0) 0.4 MG/DL (0.2-1.0) Aspartate Amino Transf (AST/SGOT) 13 U/L (15-37) 15 U/L (15-37) 12 U/L (15-37) Alanine Aminotransferase (ALT/SGPT) 17 U/L (12-78) 16 U/L (12-78) 13 U/L (12-78) Alkaline Phosphatase 99 U/L (46-116) 91 U/L (46-116) 98 U/L (46-116) Total Protein 6.2 G/DL (6.4-8.2) 5.9 G/DL (6.4-8.2) 6.0 G/DL (6.4-8.2) Albumin 2.5 G/DL (3.4-5.0) 2.4 G/DL (3.4-5.0) 2.4 G/DL (3.4-5.0) Globulin 3.7 g/dL 3.5 g/dL 3.6 g/dL Albumin/Globulin Ratio 0.7 (1.0-2.7) 0.7 (1.0-2.7) 0.7 (1.0-2.7) Differential Total Cells Counted 100 Neutrophils % (Manual) 61 % (45-75) Lymphocytes % (Manual) 26 % (20-45) Monocytes % (Manual) 7 % (1-10) Eosinophils % (Manual) 0 % (0-3) Basophils % (Manual) 6 % (0-2) Band Neutrophils 0 % (0-8) Nucleated Red Blood Cells 1 /100 WBC Platelet Estimate Adequate Platelet Morphology Normal Giant Platelets Occasional Hypochromasia 1+ Anisocytosis 1+ Height (Feet): 4 Height (Inches): 10.00 Weight (Pounds): 100 Objective Physical Exam Vitals: noted General: thin, other - frail, Chronically Ill Eyes: bilateral eye PERRL, bilateral eye EOMI ENT: moist mucus membranes - slightly dry Neck: full range of motion, no bony tend, other Respiratory: chest non-tender- Pacemaker left Cardiovascular: regular rate, rhythm Gastrointestinal: normal bowel sounds Genitourinary: no CVA tenderness Musculoskeletal: back normal, no calf tenderness, other - kyphosis Neurologic: alert, financial foundations representative III-XII nml as tested Psychiatric: mood/affect normal Skin: warm/dry - cool feet, pallor Best Kaplan MD May 02, 2020 06:57
[2020-05-02 08:00] VITALS: BP 98/68
[2020-05-02] MEDS: Amiodarone 200mg tab ORAL SCH (08:37)
[2020-05-02] MEDS: Digoxin 0.125mg tab ORAL SCH (08:37)
[2020-05-02] MEDS: Heparin 5000 units/ml inj SUBQ SCH (08:38)
--- NOTE | 2020-05-02 09:09 | Cardiac Electrophysiology PN ---
Assessment/Plan Assessment/Plan 1. Hypertension. Off Lopressor 12.5 po bid as BP was in 90s 2. Status post [employer] pacer in 2010 and gen change by me in 2019. 3. Paroxysmal atrial fibrillation with rapid ventricular response. On digoxin 0.125 and amiodarone 200 daily. Off Metoprolol for Low BP Off anticoagulation for recurrent bleeding and profound anemia. Dig level pending 4. Profound anemia with hemoglobin of 3 to 4. S/P 6 units of PRBC in 01/2020 S/P 4 units of PRBC again in 04/03 S/P PRBC on 04/14/20 and 04/29/20 5. History of hemothorax, status post VATS. 6. Pulmonary hypertension. 7. Myelofibrosis. S/P BM Biopsy Fu per chemical processing supervisor RILEY RN Subjective Subjective Comfortable s/p PRBC in NAD. RN at bedside.No CP or SOB. Hb increased from 7.3 to 8.9 Objective Last 24 Hour Vital Signs Date Time Temp Pulse Resp B/P (MAP) Pulse Ox O2 Delivery O2 Flow Rate FiO2 05/02/20 08:37 99 05/02/20 08:00 99.6 99 18 98/68 (78) 98 05/02/20 04:46 97 100/70 (80) 05/02/20 04:00 97.9 96 16 89/56 (67) 96 05/02/20 00:00 97.1 96 18 103/65 (78) 97 05/01/20 21:00 Room Air 05/01/20 20:00 98.2 71 17 101/54 (70) 97 05/01/20 16:00 97.9 68 18 99/46 (63) 97 05/01/20 12:00 98.2 67 18 124/60 (81) 98 05/01/20 10:40 Room Air Intake and Output 05/01/20 05/02/20 19:00 07:00 Intake Total 480 ml 300 ml Output Total 800 ml 400 ml Balance -320 ml -100 ml Intake Oral 480 ml 300 ml Output Urine Total 800 ml 400 ml # Bowel Movements 6 1 Laboratory Tests Test 05/02/20 04:45 White Blood Count 4.4 K/UL (4.8-10.8) L Red Blood Count 3.17 M/UL (4.20-5.40) L Hemoglobin 8.9 G/DL (12.0-16.0) L Hematocrit 27.3 % (37.0-47.0) L Mean Corpuscular Volume 86 FL (80-99) Mean Corpuscular Hemoglobin 28.2 PG (27.0-31.0) Mean Corpuscular Hemoglobin Concent 32.7 G/DL (32.0-36.0) Red Cell Distribution Width 15.3 % (11.6-14.8) H Platelet Count 326 K/UL (150-450) Mean Platelet Volume 11.2 FL (6.5-10.1) H Neutrophils (%) (Auto) 61.2 % (45.0-75.0) Lymphocytes (%) (Auto) 24.9 % (20.0-45.0) Monocytes (%) (Auto) 7.0 % (1.0-10.0) Eosinophils (%) (Auto) 0.4 % (0.0-3.0) Basophils (%) (Auto) 6.5 % (0.0-2.0) H Sodium Level 141 MMOL/L (136-145) Potassium Level 4.0 MMOL/L (3.5-5.1) Chloride Level 107 MMOL/L (98-107) Carbon Dioxide Level 26 MMOL/L (21-32) Anion Gap 9 mmol/L (5-15) Blood Urea Nitrogen 20 mg/dL (7-18) H Creatinine 0.8 MG/DL (0.55-1.30) Estimat Glomerular Filtration Rate > 60 mL/min (>60) Glucose Level 89 MG/DL (74-106) Calcium Level 8.4 MG/DL (8.5-10.1) L Total Bilirubin 0.4 MG/DL (0.2-1.0) Aspartate Amino Transf (AST/SGOT) 12 U/L (15-37) L Alanine Aminotransferase (ALT/SGPT) 13 U/L (12-78) Alkaline Phosphatase 98 U/L (46-116) Total Protein 6.0 G/DL (6.4-8.2) L Albumin 2.4 G/DL (3.4-5.0) L Globulin 3.6 g/dL Albumin/Globulin Ratio 0.7 (1.0-2.7) L Microbiology Date/Time Source Procedure Growth Status 04/30/20 12:00 Stool Clostridium difficile Toxin Assay - Final Complete Objective HEAD AND NECK: No JVD. LUNGS: Clear. CARDIOVASCULAR: Regular S1 and S2 with no gallop. Pacemaker in left subclavian. ABDOMEN: Soft. EXTREMITIES: No pitting edema. River Frietas MD May 02, 2020 09:09
--- NOTE | 2020-05-02 11:54 | Nephrology Progress Note ---
Assessment/Plan Problem List: (1) Proteinuria (2) Protein-calorie malnutrition, severe (3) Anemia Assessment Symptomatic anemia Hypotension, periodic Proteinuria, hypoalbuminemia Encephalopathy Plan May 02: Labs reviewed. Renal parameters stable. Continue per consultants. May 01: Labs reviewed. Renal parameters stable. Hemoglobin lower. Continue per consultants. April 30: Remains weak. Today's can panel pending. Continue per consultants. 24-hour urine for protein unremarkable. Hypoalbuminemia mainly nutritional. April 29: Patient weak. 24-hour urine for protein pending. No labs drawn today. Continue per consultants. Transfusion per hematology Keep the blood pressure and heart rate in check 24-hour urine collection for total protein Per orders Subjective ROS Limited/Unobtainable: No Constitutional: Reports: malaise, weakness Objective Objective Last 24 Hour Vital Signs Date Time Temp Pulse Resp B/P (MAP) Pulse Ox O2 Delivery O2 Flow Rate FiO2 05/02/20 09:00 Room Air 05/02/20 08:37 99 05/02/20 08:00 99.6 99 18 98/68 (78) 98 05/02/20 04:46 97 100/70 (80) 05/02/20 04:00 97.9 96 16 89/56 (67) 96 05/02/20 00:00 97.1 96 18 103/65 (78) 97 05/01/20 21:00 Room Air 05/01/20 20:00 98.2 71 17 101/54 (70) 97 05/01/20 16:00 97.9 68 18 99/46 (63) 97 05/01/20 12:00 98.2 67 18 124/60 (81) 98 Intake and Output 05/01/20 05/02/20 19:00 07:00 Intake Total 480 ml 300 ml Output Total 800 ml 400 ml Balance -320 ml -100 ml Intake Oral 480 ml 300 ml Output Urine Total 800 ml 400 ml # Bowel Movements 6 1 Current Medications Medications (Trade) Dose Ordered Sig/Escobar Route PRN Reason Start Time Stop Time Status Last Admin Dose Admin Acetaminophen (Tylenol) 650 mg Q6H PRN ORAL Temp >100.5 04/27/20 21:45 05/27/20 21:44 Acetaminophen/ Hydrocodone Bitart ([place] 5/325) 1 tab Q6H PRN ORAL For Pain 04/27/20 21:45 05/04/20 21:44 Amiodarone HCl (Cordarone) 200 mg DAILY ORAL 04/28/20 09:00 07/27/20 08:59 05/02/20 08:37 Digoxin (Lanoxin) 0.125 mg DAILY ORAL 04/28/20 09:00 07/27/20 08:59 05/02/20 08:37 Heparin Sodium (Porcine) (Heparin 5000 units/ml) 5,000 units EVERY 12 HOURS SUBQ 04/28/20 09:00 06/12/20 08:59 05/02/20 08:38 Levothyroxine Sodium (Synthroid) 25 mcg DAILY@0630 ORAL 04/28/20 06:30 05/28/20 06:29 05/02/20 05:38 Pantoprazole (Protonix) 40 mg DAILY ORAL 04/28/20 09:00 05/28/20 08:59 05/02/20 08:37 Laboratory Tests 05/02/20 04:45: White Blood Count 4.4L, Red Blood Count 3.17L, Hemoglobin 8.9L, Hematocrit 27.3L , Mean Corpuscular Volume 86, Mean Corpuscular Hemoglobin 28.2, Mean Corpuscular Hemoglobin Concent 32.7, Red Cell Distribution Width 15.3H, Platelet Count 326, Mean Platelet Volume 11.2H, Neutrophils (%) (Auto) 61.2, Lymphocytes (%) (Auto) 24.9, Monocytes (%) (Auto) 7.0, Eosinophils (%) (Auto) 0.4, Basophils (%) (Auto) 6.5H, Sodium Level 141, Potassium Level 4.0, Chloride Level 107, Carbon Dioxide Level 26, Anion Gap 9, Blood Urea Nitrogen 20H, Creatinine 0.8, Estimat Glomerular Filtration Rate > 60, Glucose Level 89, Calcium Level 8.4L, Total Bilirubin 0.4, Aspartate Amino Transf (AST/SGOT) 12L, Alanine Aminotransferase (ALT/SGPT) 13, Alkaline Phosphatase 98, Total Protein 6.0L, Albumin 2.4L, Globulin 3.6, Albumin/Globulin Ratio 0.7L, Digoxin Level 0.7L Height (Feet): 4 Height (Inches): 10.00 Weight (Pounds): 100 General Appearance: no apparent distress Cardiovascular: normal rate Respiratory/Chest: decreased breath sounds Abdomen: soft Objective No change Sudhakar Griggs MD May 02, 2020 11:54
[2020-05-02 12:00] VITALS: BP 96/63
--- NOTE | 2020-05-02 13:03 | Internal Med Progress Note ---
Subjective Date of Service: May 02, 2020 Physician Name Roshan Edwards Attending Physician Antonio Adrian MD Current Medications Medications (Trade) Dose Ordered Sig/Escobar Route PRN Reason Start Time Stop Time Status Last Admin Dose Admin Acetaminophen (Tylenol) 650 mg Q6H PRN ORAL Temp >100.5 04/27/20 21:45 05/27/20 21:44 Acetaminophen/ Hydrocodone Bitart ([place] 5/325) 1 tab Q6H PRN ORAL For Pain 04/27/20 21:45 05/04/20 21:44 Amiodarone HCl (Cordarone) 200 mg DAILY ORAL 04/28/20 09:00 07/27/20 08:59 05/02/20 08:37 Digoxin (Lanoxin) 0.125 mg DAILY ORAL 04/28/20 09:00 07/27/20 08:59 05/02/20 08:37 Heparin Sodium (Porcine) (Heparin 5000 units/ml) 5,000 units EVERY 12 HOURS SUBQ 04/28/20 09:00 06/12/20 08:59 05/02/20 08:38 Levothyroxine Sodium (Synthroid) 25 mcg DAILY@0630 ORAL 04/28/20 06:30 05/28/20 06:29 05/02/20 05:38 Pantoprazole (Protonix) 40 mg DAILY ORAL 04/28/20 09:00 05/28/20 08:59 05/02/20 08:37 Allergies: Coded Allergies: No Known Allergies (Unverified , 04/24/18) ROS Limited/Unobtainable: No Constitutional: Reports: no symptoms HEENT: Reports: no symptoms Cardiovascular: Reports: no symptoms Respiratory: Reports: no symptoms Gastrointestinal/Abdominal: Reports: no symptoms Genitourinary: Reports: no symptoms Neurologic/Psychiatric: Reports: no symptoms Subjective 79 YO F with history of myelofibrosis and polycythema vera admitted with severe anemia. Cover for Int Germán-DR Adrian Objective Last Vital Signs Date Time Temp Pulse Resp B/P (MAP) Pulse Ox O2 Delivery O2 Flow Rate FiO2 05/02/20 12:00 97.8 108 18 96/63 (74) 98 05/02/20 09:00 Room Air Laboratory Tests Test 05/02/20 04:45 White Blood Count 4.4 K/UL (4.8-10.8) L Red Blood Count 3.17 M/UL (4.20-5.40) L Hemoglobin 8.9 G/DL (12.0-16.0) L Hematocrit 27.3 % (37.0-47.0) L Mean Corpuscular Volume 86 FL (80-99) Mean Corpuscular Hemoglobin 28.2 PG (27.0-31.0) Mean Corpuscular Hemoglobin Concent 32.7 G/DL (32.0-36.0) Red Cell Distribution Width 15.3 % (11.6-14.8) H Platelet Count 326 K/UL (150-450) Mean Platelet Volume 11.2 FL (6.5-10.1) H Neutrophils (%) (Auto) 61.2 % (45.0-75.0) Lymphocytes (%) (Auto) 24.9 % (20.0-45.0) Monocytes (%) (Auto) 7.0 % (1.0-10.0) Eosinophils (%) (Auto) 0.4 % (0.0-3.0) Basophils (%) (Auto) 6.5 % (0.0-2.0) H Sodium Level 141 MMOL/L (136-145) Potassium Level 4.0 MMOL/L (3.5-5.1) Chloride Level 107 MMOL/L (98-107) Carbon Dioxide Level 26 MMOL/L (21-32) Anion Gap 9 mmol/L (5-15) Blood Urea Nitrogen 20 mg/dL (7-18) H Creatinine 0.8 MG/DL (0.55-1.30) Estimat Glomerular Filtration Rate > 60 mL/min (>60) Glucose Level 89 MG/DL (74-106) Calcium Level 8.4 MG/DL (8.5-10.1) L Total Bilirubin 0.4 MG/DL (0.2-1.0) Aspartate Amino Transf (AST/SGOT) 12 U/L (15-37) L Alanine Aminotransferase (ALT/SGPT) 13 U/L (12-78) Alkaline Phosphatase 98 U/L (46-116) Total Protein 6.0 G/DL (6.4-8.2) L Albumin 2.4 G/DL (3.4-5.0) L Globulin 3.6 g/dL Albumin/Globulin Ratio 0.7 (1.0-2.7) L Digoxin Level 0.7 NG/ML (0.9-2.0) L Microbiology Date/Time Source Procedure Growth Status 04/30/20 12:00 Stool Clostridium difficile Toxin Assay - Final Complete Intake and Output 05/01/20 05/02/20 18:59 06:59 Intake Total 480 ml 300 ml Output Total 800 ml 400 ml Balance -320 ml -100 ml Intake Oral 480 ml 300 ml Output Urine Total 800 ml 400 ml # Bowel Movements 6 1 Objective Objective GENERAL: The patient is awake and responsive, chronically ill-appearing and malnutrition. HEAD AND NECK: Pupils are equal and reactive to light. Extraocular movements are intact. Neck was supple. No JVD. LUNGS: Good air entry. No wheezing or rhonchi. Decreased air in bases. HEART: S1, S2. Irregular. No murmur or gallop. Pacemaker in left-sided chest wall was noted. ABDOMEN: Soft, nondistended, nontender. Positive bowel sounds. EXTREMITIES: No cyanosis, clubbing, or edema. NEUROLOGIC: Cranial nerves II to XII grossly intact. The patient is moving all extremities. Gait was not assessed due to the patient's status. Motor is 5/5 in upper extremity and 4/5 in the lower extremity. Assessment/Plan Assessment/Plan Assessment/Plan Assessment/Plan ASSESSMENT: 1. Severe anemia, possible due to myelofibrosis. 2. Paroxysmal atrial fibrillation with prior history of rapid ventricular rate. 3. History of polycythemia vera. 4. JAK2 mutation. 5. Myelodysplastic syndrome. 6. Hypertension. 7. Coronary artery disease. 8. Dyslipidemia. 9. Congestive heart failure. 10. History of right hemothorax, status post of video-assisted thoracotomy and exploration on July 02, 2019. 11. Sick sinus syndrome, status post pacemaker. 12. Failure to thrive. 13. Severe protein-calorie malnutrition. PLAN: Dr. Kaplan recommendation from Hematology-Oncology Dr. Freitas from Cardiology Electrophysiology. monitor laboratory closely. 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 Code status is Full Code. PT mobility. Roshan Edwards MD May 02, 2020 13:03
--- NOTE | 2020-05-02 15:11 | Surgery Progress Note ---
Surgery Progress Note Subjective Additional Comments heme input noted bm biopsy path no complaints pain resolved plan d/c today site c/d/i Objective Last 24 Hour Vital Signs Date Time Temp Pulse Resp B/P (MAP) Pulse Ox O2 Delivery O2 Flow Rate FiO2 05/02/20 12:00 97.8 108 18 96/63 (74) 98 05/02/20 09:00 Room Air 05/02/20 08:37 99 05/02/20 08:00 99.6 99 18 98/68 (78) 98 05/02/20 04:46 97 100/70 (80) 05/02/20 04:00 97.9 96 16 89/56 (67) 96 05/02/20 00:00 97.1 96 18 103/65 (78) 97 05/01/20 21:00 Room Air 05/01/20 20:00 98.2 71 17 101/54 (70) 97 05/01/20 16:00 97.9 68 18 99/46 (63) 97 I&O Intake and Output 05/01/20 05/02/20 19:00 07:00 Intake Total 480 ml 300 ml Output Total 800 ml 400 ml Balance -320 ml -100 ml Intake Oral 480 ml 300 ml Output Urine Total 800 ml 400 ml # Bowel Movements 6 1 Dressing: dry Wound: clean Cardiovascular: RSR Respiratory: clear Abdomen: soft, flat, non-tender, present bowel sounds, non-distended Extremities: no edema, no tenderness, no cyanosis Laboratory Tests Test 05/02/20 04:45 White Blood Count 4.4 K/UL (4.8-10.8) L Red Blood Count 3.17 M/UL (4.20-5.40) L Hemoglobin 8.9 G/DL (12.0-16.0) L Hematocrit 27.3 % (37.0-47.0) L Mean Corpuscular Volume 86 FL (80-99) Mean Corpuscular Hemoglobin 28.2 PG (27.0-31.0) Mean Corpuscular Hemoglobin Concent 32.7 G/DL (32.0-36.0) Red Cell Distribution Width 15.3 % (11.6-14.8) H Platelet Count 326 K/UL (150-450) Mean Platelet Volume 11.2 FL (6.5-10.1) H Neutrophils (%) (Auto) 61.2 % (45.0-75.0) Lymphocytes (%) (Auto) 24.9 % (20.0-45.0) Monocytes (%) (Auto) 7.0 % (1.0-10.0) Eosinophils (%) (Auto) 0.4 % (0.0-3.0) Basophils (%) (Auto) 6.5 % (0.0-2.0) H Sodium Level 141 MMOL/L (136-145) Potassium Level 4.0 MMOL/L (3.5-5.1) Chloride Level 107 MMOL/L (98-107) Carbon Dioxide Level 26 MMOL/L (21-32) Anion Gap 9 mmol/L (5-15) Blood Urea Nitrogen 20 mg/dL (7-18) H Creatinine 0.8 MG/DL (0.55-1.30) Estimat Glomerular Filtration Rate > 60 mL/min (>60) Glucose Level 89 MG/DL (74-106) Calcium Level 8.4 MG/DL (8.5-10.1) L Total Bilirubin 0.4 MG/DL (0.2-1.0) Aspartate Amino Transf (AST/SGOT) 12 U/L (15-37) L Alanine Aminotransferase (ALT/SGPT) 13 U/L (12-78) Alkaline Phosphatase 98 U/L (46-116) Total Protein 6.0 G/DL (6.4-8.2) L Albumin 2.4 G/DL (3.4-5.0) L Globulin 3.6 g/dL Albumin/Globulin Ratio 0.7 (1.0-2.7) L Digoxin Level 0.7 NG/ML (0.9-2.0) L Plan Problems: (1) Pelvic pain Assessment & Plan: s/p bone marrow biopsy from iliac crest pain from site no bleeding no n/v/f/c labs noted no cellulitis tender on palpation likely from recent procedure no complication from procedure okay for diet dressings prn pending path will follow with recs thank you pain management improved labs stable comfortable pending path path heme noted okay to d/c f/u heme outpatient (2) Episode of generalized weakness (3) Protein-calorie malnutrition, severe (4) Proteinuria (5) Generalized weakness (6) Failure to thrive (7) Altered mental state (8) Profound anemia (9) Neck pain (10) Hypotension (11) Abnormal LFTs (12) Severe anemia (13) Symptomatic anemia (14) Signs and symptoms of anemia (15) COVID-19 ruled out by laboratory testing (16) ACS (acute coronary syndrome) (17) Pyelonephritis (18) CAD (coronary artery disease) (19) COPD (chronic obstructive pulmonary disease) (20) positional vertigo (21) KELVIN (obstructive sleep apnea) (22) Peripheral neuropathy (23) Myelofibrosis (24) JAK2 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
--- NOTE | 2020-05-05 09:55 | Discharge Summary ---
Discharge Summary Discharge Summary _ Date of admission: 04/27/2020 Date of discharge: 05/02/[address] Adrian History of Present Illness and Brief Hospital Course Ms. Pascal is an 79-year-old female with past medical history significant for paroxysmal atrial fibrillation with rapid ventricular rate, history of polycythemia vera, CVA, TIA, obstructive sleep apnea, coronary artery disease, dyslipidemia, congestive heart failure, right hemothorax in June 2019, status post of video-assisted thoracotomy and exploration on July 02, 2019, history of sick sinus syndrome status post pacemaker placement in 2010 with the generator change [place] [address] Freitas, history of JAK2 mutation, myelofibrosis, and myelodysplasia, who presented to the hospital as per request by Dr. Kaplan after she was noted to be severely anemic. The patient's hemoglobin was noted to be 7.[address] Kaplan's office and subsequently the patient was admitted to the hospital for further evaluation and possible blood transfusion and bone marrow biopsy. Initial laboratory studies revealed hemoglobin level of 7.3. Patient was transfused with PRBC. Patient underwent bone marrow aspirate and biopsy. The pathology report resulted in 6.3% myeloblasts. Patient's H&H improved and remained stable after transfusion. Patient was noted to have relatively frequent transfusions; 6 units of PRBC in January 2020, and 4 units of PRBC in March 2020. Patient was medically stable for discharge and was discharged on 05/02/2020. Consultants: None cardiology Dr. Freitas Surgery Dr. Estrada Nephrology Dr. Hernandez Hematology oncology Dr. Kaplan Discharge Condition Stable Discharge Activity As tolerated Discharge Diet Regular Final diagnoses Myelofibrosis, s/p bone marrow biopsy Hypertension s/p [employer] pacemaker in 2010, and generator change in 2018 Paroxysmal atrial fibrillation with RVR Polycythemia vera, JAK2 mutation Severe anemia s/p VATS for history of hemithorax History of pulmonary hypertension Generalized weakness Myelodysplasia Cerebrovascular disease History of obstructive sleep apnea History of COPD History of coronary artery disease Congestive heart failure Sick sinus syndrome History of proteinuria Severe protein calorie malnutrition Abnormal LFTs History of pyelonephritis I have been assigned to dictate discharge summary for this account. I was not involved in the patient's management Michael Burnham May 05, 2020 09:55
== END 2020-05-02 16:15 | disposition home or self-care (01) | DRG 840 ==
LOC: EMR 14:34 → OBSVTOIN 14:46 → 4E 14:46 → EDBEDREQ 17:58 → 4E 18:28
PROC: 07DR3ZX Extraction of Iliac Bone Marrow, Percutaneous Approach, Diagnostic (ICD-10-PCS; principal; 2020-04-28)
DX: D45 Polycythemia vera (principal); E43 Unspecified severe protein-calorie malnutrition; D61.818 Other pancytopenia; D75.81 Myelofibrosis; I48.0 Paroxysmal atrial fibrillation; Z95.0 Presence of cardiac pacemaker; G47.33 Obstructive sleep apnea (adult) (pediatric); J44.9 Chronic obstructive pulmonary disease, unspecified; I25.10 Atherosclerotic heart disease of native coronary artery without angina pectoris; I11.0 Hypertensive heart disease with heart failure; I50.9 Heart failure, unspecified; Z86.73 Personal history of transient ischemic attack (TIA), and cerebral infarction without residual deficits; E78.5 Hyperlipidemia, unspecified; D46.9 Myelodysplastic syndrome, unspecified; R62.7 Adult failure to thrive; Z68.20 Body mass index [BMI] 20.0-20.9, adult; H81.10 Benign paroxysmal vertigo, unspecified ear; I27.20 Pulmonary hypertension, unspecified; R53.1 Weakness
CPT/HCPCS: 36415; 80053; 80162; 81003; 81050; 82550; 83735; 83880; 84100; 84156; 84484; 84550; 85007; 85025; 85610; 85730; 86850; 86870; 86900; 86901; 86904; 86920; 87324; 93005; 99285